=== PATIENT | male | born 1950 | race American Indian/Alaskan Native ===

== ENCOUNTER 2018-05-23 08:08 | Outpatient (CLI) | payer MEDICARE ==
[2018-05-23] MEDS ORDERED: SILVER NITRATE TP ONE (08:30)
[2018-05-23] MEDS ORDERED: XYLOCAINE TOPICAL 4% TP ONE ×2 (08:30→09:13)
== END 2018-05-23 08:09 | disposition home or self-care (01) ==
LOC: EDBD → WOUND 08:08
PROVIDERS: ATTEND Surgery
DX: L89.612 Pressure ulcer of right heel, stage 2 (principal); L89.154 Pressure ulcer of sacral region, stage 4; L89.222 Pressure ulcer of left hip, stage 2; L89.622 Pressure ulcer of left heel, stage 2; L89.512 Pressure ulcer of right ankle, stage 2; L89.892 Pressure ulcer of other site, stage 2; L97.212 Non-pressure chronic ulcer of right calf with fat layer exposed; F01.50 Vascular dementia, unspecified severity, without behavioral disturbance, psychotic disturbance, mood disturbance, and anxiety; I10 Essential (primary) hypertension; E03.9 Hypothyroidism, unspecified

== ENCOUNTER 2018-05-29 10:34 | Inpatient (IN) | payer MEDICARE ==
[2018-05-29 11:25] LABS: Basophils # (Auto) 0.1 K/mm3 (0.0-0.1); Basophils % (Auto) 0.7 % (0.0-1.8); Eosinophils # (Auto) 0.5 K/mm3 (0.0-0.4); Eosinophils % (Auto) 4.7 % (0.0-4.3); Hematocrit 24.9 % (35.5-45.6); Hemoglobin 7.9 gm/dl (11.8-15.2); Lymphocytes # (Auto) 1.1 K/mm3 (1.2-5.4); Lymphocytes % (Auto) 9.6 % (13.4-35.0); Mean Corpuscular HGB Conc 32 % (32-34); Mean Corpuscular Volume 85 fl (84-94); Monocytes % (Auto) 8.2 % (0.0-7.3); Platelet Count 515 K/mm3 (140-440); Red Blood Count 2.93 M/mm3 (3.65-5.03); Red Cell Distribution Width 18.5 % (13.2-15.2)
--- NOTE | 2018-05-29 11:33 | Emergency Department Report ---
HPI - General Chief Complaint: Recheck/Abnormal Lab/Rx Time Seen by Provider: 05/29/18 11:13 - HPI HPI: Room 19 The patient is a 67-year-old male presenting with chief complaint of anemia. The patient was sent from [facility] for anemia. Patient reportedly had an H&H of 7.3/23.3 at the [facility] and was sent for blood transfusion and colonoscopy per [facility] order form dated 05/28/2017. Patient denies complaints. Patient denies nausea/vomiting or shortness of breath Location: [See above] Duration: [See above] Quality: [See above] Severity: [See above] Modifying factors: [see above] Context: [see above] Mode of transportation: [not driving] ED Past Medical Hx - Past Medical History Previous Medical History?: Yes Hx Hypertension: Yes Hx CVA: Yes Hx Heart Attack/AMI: Yes Hx Diabetes: Yes (States does not treat) Hx Arthritis: Yes Hx Seizures: Yes Hx Kidney Stones: Yes Hx COPD: Yes Hx Dementia: Yes Additional medical history: Benign prostatic hypertrophy - Family History Family history: no significant - Social History Smoking Status: Unknown if ever smoked Substance Use Type: None - Medications Home Medications: Home Medications Medication Instructions Recorded Confirmed Last Taken Type Carvedilol [Coreg] 6.25 mg PO BID 06/02/16 05/29/18 Unknown History amLODIPine [Norvasc] 10 mg PO DAILY 06/02/16 05/29/18 Unknown History Acetaminophen [Tylenol Extra 650 mg PO Q6H PRN #30 07/23/17 05/29/18 Unknown Rx Strength] Donepezil HCl 10 mg PO HS #30 07/23/17 05/29/18 Unknown Rx Mirtazapine 7.5 mg PO HS #30 07/23/17 05/29/18 Unknown Rx diphenhydrAMINE [Benadryl CAP] 25 mg PO Q6H PRN #30 07/23/17 05/29/18 Unknown Rx levETIRAcetam [Keppra] 500 mg PO BID #60 07/23/17 05/29/18 Unknown Rx Multivit-Min/Iron Fum/Folic AC 1 each PO DAILY 03/24/18 05/29/18 Unknown History [Uhsdw-Oexkhbf-Gobrdyrx Tablet] Oxycodone HCl/Acetaminophen 1 each PO Q6HR PRN #14 tablet 04/02/18 05/29/18 Unknown Rx [Percocet 7.5/325 mg] Ferrous Sulfate [Ferrous Sulfate 300 mg FEEDTUBE DAILY 30 Days ml 04/30/18 05/29/18 Unknown Rx Oral Liq 300 Mg/5 Ml] Apixaban [Eliquis] 2.5 mg PO Q12H 05/29/18 05/29/18 Unknown History Ascorbic Acid [Vitamin C Oral Liq] 500 mg PO Q12H 05/29/18 05/29/18 Unknown History Dutasteride [Avodart] 0.5 mg PO DAILY 05/29/18 05/29/18 Unknown History Furosemide [Lasix TAB] 40 mg PO QDAY 05/29/18 05/29/18 Unknown History Ipratropium/Albuterol Sulfate 1 ampul IH BID 05/29/18 05/29/18 Unknown History [DUONEB *Not for PRN Use*] Lactobacillus Acidophilus 1 each PO BID 05/29/18 05/29/18 Unknown History [Acidophilus Lactobacilli] Lisinopril [Zestril TAB] 40 mg PO QDAY 05/29/18 05/29/18 Unknown History Tamsulosin [Flomax] 0.4 mg PO QDAY 05/29/18 05/29/18 Unknown History Zinc Sulfate 220 mg PO DAILY 05/29/18 05/29/18 Unknown History ED Review of Systems ROS: Stated complaint: ABNORMAL LABS Other details as noted in HPI Constitutional: no symptoms reported Eyes: denies: eye pain ENT: denies: throat pain Respiratory: denies: shortness of breath Cardiovascular: denies: chest pain Endocrine: no symptoms reported Gastrointestinal: denies: abdominal pain, vomiting Genitourinary: denies: dysuria Musculoskeletal: denies: back pain Neurological: denies: headache Physical Exam - Physical Exam Vital Signs: Vital Signs 05/29/18 10:56 Temperature 98.9 F Pulse Rate 84 Respiratory 20 Rate Blood Pressure 131/103 Physical Exam: GENERAL: The patient is well-developed well-nourished male lying in the position on the stretcher not appearing to be in acute distress. [] HEENT: Normocephalic. Atraumatic. NECK: Supple. Trachea midline CHEST/LUNGS: Clear to auscultation. There is no respiratory distress noted. HEART/CARDIOVASCULAR: Regular. There is no tachycardia. There is no gallop rub or murmur. ABDOMEN: Abdomen is soft, nontender. Patient has normal bowel sounds. There is no abdominal distention. SKIN: There is no rash. There is no edema. There is no diaphoresis. NEURO: The patient is awake, alert, and oriented. The patient is cooperative. The patient has normal speech MUSCULOSKELETAL: There is no evidence of acute injury. RECTAL: Guaiac negative brown stool ED Course Vital Signs 05/29/18 10:56 Temperature 98.9 F Pulse Rate 84 Respiratory 20 Rate Blood Pressure 131/103 ED Medical Decision Making - Lab Data Result diagrams: 05/29/18 11:07 05/29/18 11:07 Laboratory Tests 05/29/18 05/29/18 05/29/18 11:07 11:07 11:07 WBC 11.6 H RBC 2.93 L Hgb 7.9 L Hct 24.9 L MCV 85 MCH 27 L MCHC 32 RDW 18.5 H Plt Count 515 H Lymph % (Auto) 9.6 L [place] % (Auto) 8.2 H Eos % (Auto) 4.7 H Baso % (Auto) 0.7 Lymph # 1.1 L [place] # 1.0 H Eos # 0.5 H Baso # 0.1 Seg Neutrophils % 76.8 H Seg Neutrophils # 8.9 H Sodium 152 H Potassium 4.7 Chloride 111.7 H Carbon Dioxide 27 Anion Gap 18 BUN 51 H Creatinine 1.0 Estimated GFR > 60 BUN/Creatinine Ratio 51 Glucose 132 H Calcium 9.5 Total Bilirubin 0.20 AST 48 H ALT 66 H Alkaline Phosphatase 319 H Total Protein 7.6 Albumin 2.6 L Albumin/Globulin Ratio 0.5 Blood Type O POSITIVE Antibody Screen Negative Crossmatch See Detail - Differential Diagnosis GI bleed, anemia Critical care attestation.: If time is entered above; I have spent that time in minutes in the direct care of this critically ill patient, excluding procedure time. ED Disposition Clinical Impression: Anemia Disposition: OP ADMIT IP TO THIS HOSP Is pt being admited?: Yes Does the pt Need Aspirin: No Condition: Fair Time of Disposition: 12:27 (hospitalist paged (Dr Leija))
[2018-05-29] MEDS ORDERED: NACL 0.9% 500 ML 500 ML IV ONE (11:48)
[2018-05-29 11:49] LABS: Alanine Aminotransferase 66 units/L (7-56); Albumin 2.6 g/dL (3.9-5); BUN/Creatinine Ratio 51; Blood Urea Nitrogen 51 mg/dL (9-20); Calcium 9.5 mg/dL (8.4-10.2); Hemolysis Index 9
--- NOTE | 2018-05-29 12:41 | History and Physical Report ---
History of Present Illness Chief complaint: Confusion History of present illness: 67 YO Male [facility]sp FAcility Resident as [facility] with HTN, CVA, Contracture, Decubitus Ulcers, [place], DM, OA, Seizure Disorder, COPD, Dementia, BPH presents to ED for evaluation. Pt is confused and unable to provide history. Pt history taken from ED Staff, EMS, and SNF Staff. As per staff, the patient was found to have anemia with HGB of 7.3. EMS notified, and patient transported to [facility] for further care and evaluation. Pt seen and evaluated in ED and found to have SIRS, Encephalopathy, and symptomatic anemia. Pt admitted to [facility] unit. No further history obtainable. Past History Past Medical History: acute ND, COPD, diabetes, hypertension, seizures, stroke, other (Sacral Ducubitus Ulcers, ) Past Surgical History: No surgical history, Other (PEG placement) Social history: single. denies: smoking, alcohol abuse, prescription drug abuse Family history: hypertension Medications and Allergies Allergies Allergy/AdvReac Type Severity Reaction Status Date / Time tramadol Allergy Unknown Verified 03/23/18 17:14 Home Medications Medication Instructions Recorded Confirmed Last Taken Type Carvedilol [Coreg] 6.25 mg PO BID 06/02/16 05/29/18 Unknown History amLODIPine [Norvasc] 10 mg PO DAILY 06/02/16 05/29/18 Unknown History Acetaminophen [Tylenol Extra 650 mg PO Q6H PRN #30 07/23/17 05/29/18 Unknown Rx Strength] Donepezil HCl 10 mg PO HS #30 07/23/17 05/29/18 Unknown Rx Mirtazapine 7.5 mg PO HS #30 07/23/17 05/29/18 Unknown Rx diphenhydrAMINE [Benadryl CAP] 25 mg PO Q6H PRN #30 07/23/17 05/29/18 Unknown Rx levETIRAcetam [Keppra] 500 mg PO BID #60 07/23/17 05/29/18 Unknown Rx Multivit-Min/Iron Fum/Folic AC 1 each PO DAILY 03/24/18 05/29/18 Unknown History [Iobar-Ogsuwka-Dnyicpfu Tablet] Oxycodone HCl/Acetaminophen 1 each PO Q6HR PRN #14 tablet 04/02/18 05/29/18 Unknown Rx [Percocet 7.5/325 mg] Ferrous Sulfate [Ferrous Sulfate 300 mg FEEDTUBE DAILY 30 Days ml 04/30/18 05/29/18 Unknown Rx Oral Liq 300 Mg/5 Ml] Apixaban [Eliquis] 2.5 mg PO Q12H 05/29/18 05/29/18 Unknown History Ascorbic Acid [Vitamin C Oral Liq] 500 mg PO Q12H 05/29/18 05/29/18 Unknown History Dutasteride [Avodart] 0.5 mg PO DAILY 05/29/18 05/29/18 Unknown History Furosemide [Lasix TAB] 40 mg PO QDAY 05/29/18 05/29/18 Unknown History Ipratropium/Albuterol Sulfate 1 ampul IH BID 05/29/18 05/29/18 Unknown History [DUONEB *Not for PRN Use*] Lactobacillus Acidophilus 1 each PO BID 05/29/18 05/29/18 Unknown History [Acidophilus Lactobacilli] Lisinopril [Zestril TAB] 40 mg PO QDAY 05/29/18 05/29/18 Unknown History Tamsulosin [Flomax] 0.4 mg PO QDAY 05/29/18 05/29/18 Unknown History Zinc Sulfate 220 mg PO DAILY 05/29/18 05/29/18 Unknown History Review of Systems ROS unobtainable: due to mental status Exam - Constitutional Vitals: Temp Pulse Resp BP Pulse Ox 98.9 F 84 20 131/103 05/29/18 10:56 05/29/18 10:56 05/29/18 10:56 05/29/18 10:56 General appearance: Present: mild distress, disheveled, malodorous - EENT Eyes: Present: miosis - Neck Neck: Present: supple, normal ROM - Respiratory Respiratory effort: normal Respiratory: bilateral: CTA - Cardiovascular Heart Sounds: Present: S1 & S2. Absent: rub, click - Extremities Extremities: abnormal (contracture, pressure sores bilaterally) Peripheral Pulses: within normal limits - Abdominal General gastrointestinal: Present: soft, non-tender, non-distended, normal bowel sounds Male genitourinary: Present: normal - Integumentary Integumentary: Present: clear, dry, decreased turgor - Musculoskeletal Musculoskeletal: generalized weakness - Psychiatric Psychiatric: no appropriate mood/affect, no intact judgment & insight, no memory intact - Neurologic Neurologic: focal deficits, no moves all extremities, no gait normal Results - Labs CBC & Chem 7: 05/29/18 11:07 05/29/18 11:07 Labs: Abnormal lab results 05/29/18 05/29/18 05/29/18 Range/Units 11:07 11:07 11:07 WBC 11.6 H (4.5-11.0) K/mm3 RBC 2.93 L (3.65-5.03) M/mm3 Hgb 7.9 L (11.8-15.2) gm/dl Hct 24.9 L (35.5-45.6) % MCH 27 L (28-32) pg RDW 18.5 H (13.2-15.2) % Plt Count 515 H (140-440) K/mm3 Lymph % (Auto) 9.6 L (13.4-35.0) % [place] % (Auto) 8.2 H (0.0-7.3) % Eos % (Auto) 4.7 H (0.0-4.3) % Lymph # 1.1 L (1.2-5.4) K/mm3 [place] # 1.0 H (0.0-0.8) K/mm3 Eos # 0.5 H (0.0-0.4) K/mm3 Seg Neutrophils % 76.8 H (40.0-70.0) % Seg Neutrophils # 8.9 H (1.8-7.7) K/mm3 Sodium 152 H (137-145) mmol/L Chloride 111.7 H (98-107) mmol/L BUN 51 H (9-20) mg/dL Glucose 132 H (75-100) mg/dL AST 48 H (5-40) units/L ALT 66 H (7-56) units/L Alkaline Phosphatase 319 H (35-129) units/L Albumin 2.6 L (3.9-5) g/dL Crossmatch See Detail Assessment and Plan - Patient Problems (1) SIRS (systemic inflammatory response syndrome) Current Visit: Yes Status: Acute Plan to address problem: Empiric antibiotic therapy x 1 dose, urinalysis, chest x ray, monitor uop q shift, supportive care. (2) Encephalopathy Current Visit: Yes Status: Acute Plan to address problem: Neuro checks, supportive care, thyroid panel, seizure precautions, aspiration precautions (3) Decubitus ulcer Current Visit: Yes Status: Acute Qualifiers: Pressure injury location: upper back Plan to address problem: wound care, supportive care. (4) Anemia Current Visit: Yes Status: Acute Plan to address problem: PRBC transfusion, supportive care. (5) DVT prophylaxis Current Visit: Yes Status: Acute Plan to address problem: SCD to BLE while in bed.
[2018-05-29 12:42] LABS: INR 1.57 (0.87-1.13)
[2018-05-29 12:43] LABS: Partial Thromboplastin Time 52.8 Sec. (24.2-36.6)
[2018-05-29] MEDS ORDERED: SODIUM CHLORIDE FLUSH SYRINGE 10 ML IV PRN (12:58)
[2018-05-29] MEDS ORDERED: ZOFRAN IV PRN (12:58)
[2018-05-29] MEDS ORDERED: PROVENTIL IH PRN (12:58)
[2018-05-29] MEDS ORDERED: TYLENOL PO PRN (12:58)
--- NOTE | 2018-05-29 14:26 | XRay Report ---
AP CHEST :05/29/18 10:34:00 CLINICAL: Dyspnea. COMPARISON:03/23/18 FINDINGS: The patient is contracted and obliqued and the chin obscures a portion of the right upper lung. The imaged portions of the lungs are normally expanded and clear. No pneumothorax. Normal heart and pulmonary vasculature. The bones and soft tissues are normal. No tubes or lines. IMPRESSION: No acute cardiopulmonary process.
[2018-05-29] MEDS: SODIUM CHLORIDE FLUSH SYRINGE 10 ML IV SCH (22:19)
[2018-05-29] MEDS: PROTONIX IV SCH (22:19)
[2018-05-30 06:38] LABS: BUN/Creatinine Ratio 45; Blood Urea Nitrogen 45 mg/dL (9-20); Calcium 8.8 mg/dL (8.4-10.2); Hemolysis Index 16
[2018-05-30 06:41] LABS: Hematocrit TNR % (35.5-45.6); Hemoglobin TNR gm/dl (11.8-15.2); Mean Corpuscular HGB Conc TNR % (32-34); Mean Corpuscular Volume TNR fl (84-94); Mean Platelet Volume TNR fl (6-12); Platelet Count TNR K/mm3 (140-440); Red Blood Count TNR M/mm3 (3.65-5.03); Red Cell Distribution Width TNR % (13.2-15.2)
[2018-05-30 06:42] LABS: Basophils % (Auto) TNR % (0.0-1.8); Eosinophils % (Auto) TNR % (0.0-4.3); Lymphocytes % (Auto) TNR % (13.4-35.0); Monocytes % (Auto) TNR % (0.0-7.3)
[2018-05-30 06:43] LABS: Basophils # (Auto) TNR K/mm3 (0.0-0.1); Eosinophils # (Auto) TNR K/mm3 (0.0-0.4); Lymphocytes # (Auto) TNR K/mm3 (1.2-5.4); Monocytes # (Auto) TNR K/mm3 (0.0-0.8)
[2018-05-30 07:29] LABS: Basophils # (Auto) 0.1 K/mm3 (0.0-0.1); Basophils % (Auto) 0.9 % (0.0-1.8); Eosinophils # (Auto) 0.4 K/mm3 (0.0-0.4); Eosinophils % (Auto) 3.4 % (0.0-4.3); Hematocrit 29.1 % (35.5-45.6); Hemoglobin 9.5 gm/dl (11.8-15.2); Lymphocytes % (Auto) 10.1 % (13.4-35.0); Mean Corpuscular HGB Conc 33 % (32-34); Mean Corpuscular Volume 84 fl (84-94); Monocytes # (Auto) 0.8 K/mm3 (0.0-0.8); Platelet Count 477 K/mm3 (140-440); Red Blood Count 3.48 M/mm3 (3.65-5.03); Red Cell Distribution Width 17.3 % (13.2-15.2)
--- NOTE | 2018-05-30 07:56 | Progress Note ---
Assessment and Plan Assessment and plan: 67 YO Male Group Home FAcility Res[facility] as [facility] with HTN, CVA, Contracture, Decubitus Ulcers, [place], DM, OA, Seizure Disorder, COPD, Dementia, BPH presents to ED for evaluation. Pt is confused and unable to provide history. Pt history taken from ED Staff, EMS, and SNF Staff. As per st aff, the patient was found to have anemia with HGB of 7.3. EMS notified, and patient transported to [facility] for further care and evaluation. Pt seen and evaluated in ED and found to have SIRS, Encephalopathy, and symptomatic anemia. Pt admitted to [facility] unit. No further history obtainable. CAME FOR ANEMIA. CHRONIC NO CLEAR EVIDENCE OF GI BLEED ?HEMOLYSIS- CHECK HEMOLYSIS LABS PLACE ON ISOLATION FOR PRIOR HX OF MDR (1) SIRS (systemic inflammatory response syndrome) Current Visit: Yes Status: Acute Plan to address problem: Empiric antibiotic therapy x 1 dose, urinalysis, chest x ray, monitor uop q shif t, supportive care. no clear source of infection review of prior records shows MDR organism place (2) Encephalopathy Current Visit: Yes Status: Acute Plan to address problem: Neuro checks, supportive care, thyroid panel, seizure precautions, aspiration precautions Although he is able to assist with diet. (3) Decubitus ulcer Current Visit: Yes Status: Acute Qualifiers: Pressure injury location: upper back Plan to address problem: wound care, supportive care. (4) Anemia Current Visit: Yes Status: Acute Plan to address problem: PRBC transfusion, supportive care. (5) DVT prophylaxis Current Visit: Yes Status: Acute Plan to address problem: SCD to BLE while in bed. History Interval history: Patient seen and examined, admitted with abnormal labs. No new compliants today. Hospitalist Physical - Physical exam Narrative exam: General appearance: Present: mild distress, disheveled, - EENT Eyes: Present: miosis - Neck Neck: Present: supple, normal ROM - Respiratory Respiratory effort: normal Respiratory: bilateral: CTA - Cardiovascular Heart Sounds: Present: S1 & S2. Absent: rub, click - Extremities Extremities: abnormal (contracture, pressure sores bilaterally) Peripheral Pulses: within normal limits - Abdominal General gastrointestinal: Present: soft, non-tender, non-distended, normal bowel sounds Male genitourinary: Present: normal - Integumentary Integumentary: Present: clear, dry, decreased turgor - Musculoskeletal Musculoskeletal: generalized weakness - Psychiatric Psychiatric: no appropriate mood/affect, no intact judgment & insight, no memory intact - Neurologic Neurologic: focal deficits, no moves all extremities, no gait normal - Constitutional Vitals: Temp Pulse Resp BP Pulse Ox 97.6 F 88 20 137/67 95 05/30/18 01:52 05/30/18 05:17 05/30/18 01:52 05/30/18 01:52 05/30/18 01:52 General appearance: Present: mild distress, disheveled, malodorous Results - Labs CBC & Chem 7: 05/30/18 07:10 05/30/18 05:45 Labs: Laboratory Last Values WBC 10.2 K/mm3 (4.5-11.0) 05/30/18 07:10 RBC 3.48 M/mm3 (3.65-5.03) L 05/30/18 07:10 Hgb 9.5 gm/dl (11.8-15.2) L 05/30/18 07:10 Hct 29.1 % (35.5-45.6) L 05/30/18 07:10 MCV 84 fl (84-94) 05/30/18 07:10 MCH 27 pg (28-32) L 05/30/18 07:10 MCHC 33 % (32-34) 05/30/18 07:10 RDW 17.3 % (13.2-15.2) H 05/30/18 07:10 Plt Count 477 K/mm3 (140-440) H 05/30/18 07:10 Lymph % (Auto) 10.1 % (13.4-35.0) L 05/30/18 07:10 [place] % (Auto) 8.0 % (0.0-7.3) H 05/30/18 07:10 Eos % (Auto) 3.4 % (0.0-4.3) 05/30/18 07:10 Baso % (Auto) 0.9 % (0.0-1.8) 05/30/18 07:10 Lymph # 1.0 K/mm3 (1.2-5.4) L 05/30/18 07:10 [place] # 0.8 K/mm3 (0.0-0.8) 05/30/18 07:10 Eos # 0.4 K/mm3 (0.0-0.4) 05/30/18 07:10 Baso # 0.1 K/mm3 (0.0-0.1) 05/30/18 07:10 Seg Neutrophils % 77.6 % (40.0-70.0) H 05/30/18 07:10 Seg Neutrophils # 7.9 K/mm3 (1.8-7.7) H 05/30/18 07:10 PT 19.2 Sec. (12.2-14.9) H 05/29/18 Unknown INR 1.57 (0.87-1.13) H 05/29/18 Unknown APTT 52.8 Sec. (24.2-36.6) H 05/29/18 Unknown Sodium 150 mmol/L (137-145) H 05/30/18 05:45 Potassium 4.9 mmol/L (3.6-5.0) 05/30/18 05:45 Chloride 112.4 mmol/L (98-107) H 05/30/18 05:45 Carbon Dioxide 23 mmol/L (22-30) 05/30/18 05:45 Anion Gap 20 mmol/L 05/30/18 05:45 BUN 45 mg/dL (9-20) H 05/30/18 05:45 Creatinine 1.0 mg/dL (0.8-1.5) 05/30/18 05:45 Estimated GFR > 60 ml/min 05/30/18 05:45 BUN/Creatinine Ratio 45 % 05/30/18 05:45 Glucose 87 mg/dL (75-100) 05/30/18 05:45 Calcium 8.8 mg/dL (8.4-10.2) 05/30/18 05:45 Total Bilirubin 0.20 mg/dL (0.1-1.2) 05/29/18 11:07 AST 48 units/L (5-40) H 05/29/18 11:07 ALT 66 units/L (7-56) H 05/29/18 11:07 Alkaline Phosphatase 319 units/L (35-129) H 05/29/18 11:07 Total Protein 7.6 g/dL (6.3-8.2) 05/29/18 11:07 Albumin 2.6 g/dL (3.9-5) L 05/29/18 11:07 Albumin/Globulin Ratio 0.5 % 05/29/18 11:07 Blood Type O POSITIVE 05/29/18 11:07 Antibody Screen Negative 05/29/18 11:07 Crossmatch See Detail 05/29/18 11:07
[2018-05-30 08:09] LABS: Bacteria,Urine 1+ /HPF (Negative); Bilirubin,Urine NEG (Negative); Blood,Urine NEG (Negative); Color,Urine Yellow (Yellow); Mucus,Urine FEW /HPF; Urobilinogen,Urine < 2.0 mg/dL (<2.0)
[2018-05-30 09:26] LABS: Alanine Aminotransferase 54 units/L (7-56); Albumin 2.4 g/dL (3.9-5)
[2018-05-30 09:27] LABS: Bilirubin,Direct < 0.2 mg/dL (0-0.2)
[2018-05-30] MEDS: SODIUM CHLORIDE FLUSH SYRINGE 10 ML IV SCH ×2 (10:47→21:23)
[2018-05-30] MEDS: PROTONIX IV SCH ×2 (10:47→21:23)
[2018-05-31 06:16] LABS: Hematocrit 28.8 % (35.5-45.6); Hemoglobin 9.4 gm/dl (11.8-15.2); Mean Corpuscular HGB Conc 33 % (32-34); Mean Corpuscular Volume 84 fl (84-94); Platelet Count 470 K/mm3 (140-440); Red Blood Count 3.41 M/mm3 (3.65-5.03); Red Cell Distribution Width 17.1 % (13.2-15.2)
[2018-05-31 06:37] LABS: Alanine Aminotransferase 44 units/L (7-56); Albumin 2.5 g/dL (3.9-5); BUN/Creatinine Ratio 39; Blood Urea Nitrogen 39 mg/dL (9-20); Calcium 8.7 mg/dL (8.4-10.2); Hemolysis Index 6
[2018-05-31] MEDS: PROTONIX PO SCH ×2 (09:51→21:44)
[2018-05-31] MEDS: SODIUM CHLORIDE FLUSH SYRINGE 10 ML IV SCH ×2 (09:52→21:44)
--- NOTE | 2018-05-31 10:44 | Discharge Summary ---
Providers - Providers Date of Admission: 05/29/18 12:58 Attending physician: TRACEY ROTH MD 05/29/18 14:36 Consult to Wound/ET Nurse [CONS] Routine Reason For Exam: wound eval Primary care physician: ELECTROTYPER APPRENTICE Hospitalization Condition: Fair Hospital course: 67 YO Male Fdc FAcility Resident as [facility] with HTN, CVA, Contracture, Decubitus Ulcers, [place], DM, OA, Seizure Disorder, COPD, Dementia, BPH presents to ED for evaluation. Pt is confused and unable to provide history. Pt history taken from ED Staff, EMS, and SNF Staff. As per staff, the patient was found to have anemia with HGB of 7.3. EMS notified, and patient transported to [facility] for further care and evaluation. Pt seen and evaluated in ED and found to have SIRS, Encephalopathy, and symptomatic anemia. Pt admitted to [facility] unit. No further history obtainable. CAME FOR ANEMIA. CHRONIC NO CLEAR EVIDENCE OF GI BLEED ?HEMOLYSIS- CHECK HEMOLYSIS LABS PLACE ON ISOLATION FOR PRIOR HX OF MDR ( Disposition: DC/TX-03 SNF W [facility] C[facility] Time spent for discharge: 35 mins Exam - Constitutional Vitals: Temp Pulse Resp BP Pulse Ox 98.6 F 82 18 109/59 96 05/31/18 07:49 05/31/18 08:06 05/31/18 07:49 05/31/18 08:06 05/31/18 08:45 Plan Activity: advance as tolerated, fall precautions Diet: regular Wound: per wound nurse instructions, other (follow up at wound care clinic) Special Instructions: other Follow up with: PRIMARY CARE, [Primary Care Provider] - 3-5 Days Prescriptions: Ferrous Sulfate [Ferrous Sulfate Oral Liq 300 Mg/5 Ml] 300 mg FEEDTUBE BID 30 Days ml
--- NOTE | 2018-05-31 12:21 | Query-Altered Level of Consc. ---
Jose Martin Harris____Garcia Date:___05/31/18 Clinical Research Assistant/CDS:__milvia Phone#: [phone] Exercise your independent professional judgment when responding to this query. Questions asked do not imply a particular answer is desired or expected. We greatly appreciate your clarification on this issue. Clinical Documentation States: 67 YO Male Assisted FAcility Resident as [facility] . Pt is confused and unable to provide history. (1) SIRS (systemic inflammatory response syndrome) (2) Encephalopathy Clinical Findings Show: 05/29/18 05/30/18 Sodium 152 150 Please provide an appropriate diagnosis clarifying the Etiology and Acuity of this clinical scenario: [x ] Metabolic Encephalopathy [ ] Toxic Encephalopathy [ ] Toxic - Metabolic Encephalopathy [ ] Septic Encephalopathy with Sepsis [ ] Septic Encephalopathy without Sepsis [ ] Acute Hepatic Encephalopathy [ ] Subacute Hepatic Encephalopathy [ ] Other: [ ] Unable To Determine [ ]Comment/Explanation: Present on Admission: [ x] Yes (Y) [ ] Clinically undeterminable (W) [ ] No (N) Please also document response in your Progress Notes and/or Discharge Summary and indicate if the condition was present on admission. MTDD
--- NOTE | 2018-05-31 12:27 | Query- Nutrition ---
Jose Martin Fernández Date:__05/31/18 Assembler Gold Frame/CDS:__milvia Phone#:__[phone] Exercise your independent professional judgment when responding to query. Questions asked do not imply a particular answer is desired or expected. We greatly appreciate your clarification on this issue. Clinical Documentation States: 67 YO Male [facility] FAcility Resident as [facility]. Pt is confused and unable to provide history. (1) SIRS (systemic inflammatory response syndrome) (2) Encephalopathy Clinical Findings Show: 05/29/18 05/30/18 05/31/18 Albumin 2.6 2.4 2.5 Please select the most appropriate option [ ] Mild Malnutrition [ ] Moderate Malnutrition [x ] Severe Malnutrition Serum Albumin 2.8 to 3.4 g/dl or Pre-albumin 5 to 17 mg/dl1,2 Inadequate nutritional intake1,2,3,4 NPO > 5 days Weight loss: 5% in 1 month or 7.5% in 3 months or 10% in 6 months1, 3,4 BMI 16 to 18.4 or Weight <90% of ideal body weight1,2,3,4 Serum Albumin < 2.8 g/ dl1,2 Lymphocytes < 1500/ L2 Inadequate nutritional intake3, high stress e.g. major trauma, sepsis,pancreatitis, shook etc. Decubitus ulcers1,2, , skin breakdown2, easy hair pluckability2 Weight <80% standard for height2 Triceps skin fold <3 mm2 Mid-arm muscle circumference <15 cm2 Creatinine-height index <60% standard2 [ ] Cachexia [ ] Emaciated w/Malnutrition [ ] Other: [ ] Unable to determine [ ] Comment/Explanation: Present on Admission: [x ] Yes (Y) [ ] Clinically undeterminable (W) [ ] No (N) Please also document response in your Progress Notes and/or Discharge Summary and indicate if the condition was present on admission. MTDD
--- NOTE | 2018-05-31 16:16 | Progress Note ---
Assessment and Plan Assessment and plan: 67 YO Male Intermediate FAcility Resident as [facility] with HTN, CVA, Contracture, Decubitus Ulcers, [place], DM, OA, Seizure Disorder, COPD, Dementia, BPH presents to ED for evaluation. Pt is confused and unable to provide history. Pt history taken from ED Staff, EMS, and SNF Staff. As per st aff, the patient was found to have anemia with HGB of 7.3. EMS notified, and patient transported to [facility] for further care and evaluation. Pt seen and evaluated in ED and found to have SIRS, Encephalopathy, and symptomatic anemia. Pt admitted to DIANA unit. No further history obtainable. CAME FOR ANEMIA. CHRONIC NO CLEAR EVIDENCE OF GI BLEED ?HEMOLYSIS- CHECK HEMOLYSIS LABS- haptoglobin pending PLACE ON ISOLATION FOR PRIOR HX OF MDR (1) SIRS (systemic inflammatory response syndrome) Current Visit: Yes Status: Acute Plan to address problem: Empiric antibiotic therapy x 1 dose, urinalysis, chest x ray, monitor uop q shift, supportive care. no clear source of infection review of prior records shows MDR organism place (2) Encephalopathy Current Visit: Yes Status: Acute Plan to address problem: Neuro checks, supportive care, thyroid panel, seizure precautions, aspiration precautions Although he is able to assist with diet. (3) Decubitus ulcer Current Visit: Yes Status: Acute Qualifiers: Pressure injury location: upper back Plan to address problem: wound care, supportive care. (4) Anemia Current Visit: Yes Status: Acute Plan to address problem: PRBC transfusion, supportive care. (5) DVT prophylaxis Current Visit: Yes Status: Acute Plan to address problem: SCD to BLE while in bed. History Interval history: Patient seen and examined, admitted with abnormal labs. No new complaints today. Awaiting transfer back to [facility] Hospitalist Physical - Physical exam Narrative exam: General appearance: Present: mild distress, disheveled, - EENT Eyes: Present: miosis - Neck Neck: Present: supple, normal ROM - Respiratory Respiratory effort: normal Respiratory: bilateral: CTA - Cardiovascular Heart Sounds: Present: S1 & S2. Absent: rub, click - Extremities Extremities: abnormal (contracture, pressure sores bilaterally) Peripheral Pulses: within normal limits - Abdominal General gastrointestinal: Present: soft, non-tender, non-distended, normal bowel sounds Male genitourinary: Present: normal - Integumentary Integumentary: Present: clear, dry, decreased turgor - Musculoskeletal Musculoskeletal: generalized weakness - Psychiatric Psychiatric: no appropriate mood/affect, no intact judgment & insight, no memory intact - Neurologic Neurologic: focal deficits, no moves all extremities, no gait normal - Constitutional Vitals: Temp Pulse Resp BP Pulse Ox 99.4 F 82 20 116/65 95 05/31/18 13:45 05/31/18 13:45 05/31/18 13:45 05/31/18 13:45 05/31/18 13:45 General appearance: Present: mild distress, disheveled, malodorous Results - Labs CBC & Chem 7: 05/31/18 05:47 05/31/18 05:47 Labs: Laboratory Last Values WBC 9.7 K/mm3 (4.5-11.0) 05/31/18 05:47 RBC 3.41 M/mm3 (3.65-5.03) L 05/31/18 05:47 Hgb 9.4 gm/dl (11.8-15.2) L 05/31/18 05:47 Hct 28.8 % (35.5-45.6) L 05/31/18 05:47 MCV 84 fl (84-94) 05/31/18 05:47 MCH 28 pg (28-32) 05/31/18 05:47 MCHC 33 % (32-34) 05/31/18 05:47 RDW 17.1 % (13.2-15.2) H 05/31/18 05:47 Plt Count 470 K/mm3 (140-440) H 05/31/18 05:47 Lymph % (Auto) 10.1 % (13.4-35.0) L 05/30/18 07:10 [place] % (Auto) 8.0 % (0.0-7.3) H 05/30/18 07:10 Eos % (Auto) 3.4 % (0.0-4.3) 05/30/18 07:10 Baso % (Auto) 0.9 % (0.0-1.8) 05/30/18 07:10 Lymph # 1.0 K/mm3 (1.2-5.4) L 05/30/18 07:10 [place] # 0.8 K/mm3 (0.0-0.8) 05/30/18 07:10 Eos # 0.4 K/mm3 (0.0-0.4) 05/30/18 07:10 Baso # 0.1 K/mm3 (0.0-0.1) 05/30/18 07:10 Seg Neutrophils % 77.6 % (40.0-70.0) H 05/30/18 07:10 Seg Neutrophils # 7.9 K/mm3 (1.8-7.7) H 05/30/18 07:10 PT 19.2 Sec. (12.2-14.9) H 05/29/18 Unknown INR 1.57 (0.87-1.13) H 05/29/18 Unknown APTT 52.8 Sec. (24.2-36.6) H 05/29/18 Unknown Sodium 150 mmol/L (137-145) H 05/31/18 05:47 Potassium 4.6 mmol/L (3.6-5.0) 05/31/18 05:47 Chloride 112.1 mmol/L (98-107) H 05/31/18 05:47 Carbon Dioxide 24 mmol/L (22-30) 05/31/18 05:47 Anion Gap 19 mmol/L 05/31/18 05:47 BUN 39 mg/dL (9-20) H 05/31/18 05:47 Creatinine 1.0 mg/dL (0.8-1.5) 05/31/18 05:47 Estimated GFR > 60 ml/min 05/31/18 05:47 BUN/Creatinine Ratio 39 % 05/31/18 05:47 Glucose 99 mg/dL (75-100) 05/31/18 05:47 Calcium 8.7 mg/dL (8.4-10.2) 05/31/18 05:47 Total Bilirubin 0.40 mg/dL (0.1-1.2) 05/31/18 05:47 Direct Bilirubin < 0.2 mg/dL (0-0.2) 05/30/18 05:45 AST 25 units/L (5-40) 05/31/18 05:47 ALT 44 units/L (7-56) 05/31/18 05:47 Alkaline Phosphatase 258 units/L (35-129) H 05/31/18 05:47 Total Protein 6.6 g/dL (6.3-8.2) 05/31/18 05:47 Albumin 2.5 g/dL (3.9-5) L 05/31/18 05:47 Albumin/Globulin Ratio 0.6 % 05/31/18 05:47 Urine Color Yellow (Yellow) 05/30/18 07:45 Urine Turbidity Clear (Clear) 05/30/18 07:45 Urine pH 7.0 (5.0-7.0) 05/30/18 07:45 Ur Specific [place] 1.014 (1.003-1.030) 05/30/18 07:45 Urine Protein 30 mg/dl mg/dL (Negative) 05/30/18 07:45 Urine Glucose (UA) Neg mg/dL (Negative) 05/30/18 07:45 Urine Ketones Neg mg/dL (Negative) 05/30/18 07:45 Urine Blood Neg (Negative) 05/30/18 07:45 Urine Nitrite Pos (Negative) 05/30/18 07:45 Urine Bilirubin Neg (Negative) 05/30/18 07:45 Urine Urobilinogen < 2.0 mg/dL (<2.0) 05/30/18 07:45 Ur Leukocyte Esterase Lg (Negative) 05/30/18 07:45 Urine WBC (Auto) 80.0 /HPF (0.0-6.0) H 05/30/18 07:45 Urine RBC (Auto) 2.0 /HPF (0.0-6.0) 05/30/18 07:45 Urine Bacteria (Auto) 1+ /HPF (Negative) 05/30/18 07:45 Urine Mucus Few /HPF 05/30/18 07:45 Blood Type O POSITIVE 05/29/18 11:07 Antibody Screen Negative 05/29/18 11:07 Crossmatch See Detail 05/29/18 11:07 Nutrition/Malnutrition Assess - Dietary Evaluation Nutrition/Malnutrition Findings: Nutrition Notes Start: 05/30/18 13:52 Freq: Status: Active Protocol: Document 05/30/18 13:52 CT (Rec: 05/30/18 15:11 CT [id number]) Co-Sign 05/30/18 13:52 RM Nutrition Notes Need for 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 Height 5 ft 6 in Weight 63.5 kg [place] Body Weight (lbs) 142.0 BMI 22.6 Weight Status Appropriate Subjective/Other Information RD screen for skin risk. Miky 12. Pt incoherent at time of visit. Spoke with tech who stated pt eats only a few bites of food but drinks all of his beverages. Burn Absent Trauma Absent #1 Nutrition Diagnosis Inadequate oral intake Etiology dementia As Evidenced by Signs and Symptoms Tech states pt only eating "a few bites" of food. Is patient on ventilator? No Is Patient Ambulatory and/or Out of Bed No REE-([place] [facility]-confined to bed) 3933.792 Calculation [facility] Additional Notes PRO: 1.2 - 1.5 kcal/kg (77 - 95g PRO) Fluid: 1ml/kcal Nutrition Intervention Change Diet Order: Continue current Add Supplement/Snack (indicate name/kcal Glucerna daily /protein ) Mario daily Provides kCal: 315 Provides Protein (gm) 13 Goal #1 Increase PO and ONS intake to meet at least 75% of kcal and PRO needs. Anticipated Discharge Needs: Cardiac Follow-Up By: 06/03/18 Additional Comments F/U: intakes and tolerance
[2018-06-01] MEDS: SODIUM CHLORIDE FLUSH SYRINGE 10 ML IV SCH ×2 (11:06→22:00)
[2018-06-01] MEDS: PROTONIX PO SCH ×2 (11:06→21:59)
--- NOTE | 2018-06-01 12:05 | Progress Note ---
Assessment and Plan Assessment and plan: 67 YO Male Retirement FAcility Resident as [facility] with HTN, CVA, Contracture, Decubitus Ulcers, [place], DM, OA, Seizure Disorder, COPD, Dementia, BPH presents to ED for evaluation. Pt is confused and unable to provide history. Pt history taken from ED Staff, EMS, and SNF Staff. As per st aff, the patient was found to have anemia with HGB of 7.3. EMS notified, and patient transported to [facility] for further care and evaluation. Pt seen and evaluated in ED and found to have SIRS, Encephalopathy, and symptomatic anemia. Pt admitted to DIANA unit. No further history obtainable. CAME FOR ANEMIA. CHRONIC NO CLEAR EVIDENCE OF GI BLEED ?HEMOLYSIS- CHECK HEMOLYSIS LABS- haptoglobin pending PLACE ON ISOLATION FOR PRIOR HX OF MDR (1) SIRS (systemic inflammatory response syndrome) Current Visit: Yes Status: Acute Plan to address problem: Empiric antibiotic therapy x 1 dose, urinalysis, chest x ray, monitor uop q shift, supportive care. no clear source of infection review of prior records shows MDR organism place (2) Encephalopathy Current Visit: Yes Status: Acute Plan to address problem: Neuro checks, supportive care, thyroid panel, seizure precautions, aspiration precautions Although he is able to assist with diet. (3) Decubitus ulcer Current Visit: Yes Status: Acute Qualifiers: Pressure injury location: upper back Plan to address problem: wound care, supportive care. (4) Anemia Current Visit: Yes Status: Acute Plan to address problem: PRBC transfusion, supportive care. Resume oral iron (5) +MRSA SCREEN ISOLATION PRECAUTIONS (6)DVT prophylaxis Current Visit: Yes Status: Acute Plan to address problem: SCD to BLE while in bed. Awaiting Insurance autho for return to SNF Intermittent lab check while here History Interval history: Patient seen and examined, admitted with abnormal labs. No new complaints today. Awaiting transfer back to [facility] Hospitalist Physical - Physical exam Narrative exam: General appearance: Present: mild distress, disheveled, - EENT Eyes: Present: miosis - Neck Neck: Present: supple, normal ROM - Respiratory Respiratory effort: normal Respiratory: bilateral: CTA - Cardiovascular Heart Sounds: Present: S1 & S2. Absent: rub, click - Extremities Extremities: abnormal (contracture, pressure sores bilaterally) Peripheral Pulses: within normal limits - Abdominal General gastrointestinal: Present: soft, non-tender, non-distended, normal bowel sounds Male genitourinary: Present: normal - Integumentary Integumentary: Present: clear, dry, decreased turgor - Musculoskeletal Musculoskeletal: generalized weakness - Psychiatric Psychiatric: no appropriate mood/affect, no intact judgment & insight, no memory intact - Neurologic Neurologic: focal deficits, no moves all extremities, no gait normal - Constitutional Vitals: Temp Pulse Resp BP Pulse Ox 98.9 F 86 18 109/60 96 06/01/18 08:06 06/01/18 08:06 06/01/18 08:06 06/01/18 08:06 06/01/18 08:06 General appearance: Present: mild distress, disheveled, malodorous Results - Labs CBC & Chem 7: 05/31/18 05:47 05/31/18 05:47 Labs: Laboratory Last Values WBC 9.7 K/mm3 (4.5-11.0) 05/31/18 05:47 RBC 3.41 M/mm3 (3.65-5.03) L 05/31/18 05:47 Hgb 9.4 gm/dl (11.8-15.2) L 05/31/18 05:47 Hct 28.8 % (35.5-45.6) L 05/31/18 05:47 MCV 84 fl (84-94) 05/31/18 05:47 MCH 28 pg (28-32) 05/31/18 05:47 MCHC 33 % (32-34) 05/31/18 05:47 RDW 17.1 % (13.2-15.2) H 05/31/18 05:47 Plt Count 470 K/mm3 (140-440) H 05/31/18 05:47 Lymph % (Auto) 10.1 % (13.4-35.0) L 05/30/18 07:10 [place] % (Auto) 8.0 % (0.0-7.3) H 05/30/18 07:10 Eos % (Auto) 3.4 % (0.0-4.3) 05/30/18 07:10 Baso % (Auto) 0.9 % (0.0-1.8) 05/30/18 07:10 Lymph # 1.0 K/mm3 (1.2-5.4) L 05/30/18 07:10 [place] # 0.8 K/mm3 (0.0-0.8) 05/30/18 07:10 Eos # 0.4 K/mm3 (0.0-0.4) 05/30/18 07:10 Baso # 0.1 K/mm3 (0.0-0.1) 05/30/18 07:10 Seg Neutrophils % 77.6 % (40.0-70.0) H 05/30/18 07:10 Seg Neutrophils # 7.9 K/mm3 (1.8-7.7) H 05/30/18 07:10 PT 19.2 Sec. (12.2-14.9) H 05/29/18 Unknown INR 1.57 (0.87-1.13) H 05/29/18 Unknown APTT 52.8 Sec. (24.2-36.6) H 05/29/18 Unknown Sodium 150 mmol/L (137-145) H 05/31/18 05:47 Potassium 4.6 mmol/L (3.6-5.0) 05/31/18 05:47 Chloride 112.1 mmol/L (98-107) H 05/31/18 05:47 Carbon Dioxide 24 mmol/L (22-30) 05/31/18 05:47 Anion Gap 19 mmol/L 05/31/18 05:47 BUN 39 mg/dL (9-20) H 05/31/18 05:47 Creatinine 1.0 mg/dL (0.8-1.5) 05/31/18 05:47 Estimated GFR > 60 ml/min 05/31/18 05:47 BUN/Creatinine Ratio 39 % 05/31/18 05:47 Glucose 99 mg/dL (75-100) 05/31/18 05:47 Calcium 8.7 mg/dL (8.4-10.2) 05/31/18 05:47 Total Bilirubin 0.40 mg/dL (0.1-1.2) 05/31/18 05:47 Direct Bilirubin < 0.2 mg/dL (0-0.2) 05/30/18 05:45 AST 25 units/L (5-40) 05/31/18 05:47 ALT 44 units/L (7-56) 05/31/18 05:47 Alkaline Phosphatase 258 units/L (35-129) H 05/31/18 05:47 Total Protein 6.6 g/dL (6.3-8.2) 05/31/18 05:47 Albumin 2.5 g/dL (3.9-5) L 05/31/18 05:47 Albumin/Globulin Ratio 0.6 % 05/31/18 05:47 Urine Color Yellow (Yellow) 05/30/18 07:45 Urine Turbidity Clear (Clear) 05/30/18 07:45 Urine pH 7.0 (5.0-7.0) 05/30/18 07:45 Ur Specific [place] 1.014 (1.003-1.030) 05/30/18 07:45 Urine Protein 30 mg/dl mg/dL (Negative) 05/30/18 07:45 Urine Glucose (UA) Neg mg/dL (Negative) 05/30/18 07:45 Urine Ketones Neg mg/dL (Negative) 05/30/18 07:45 Urine Blood Neg (Negative) 05/30/18 07:45 Urine Nitrite Pos (Negative) 05/30/18 07:45 Urine Bilirubin Neg (Negative) 05/30/18 07:45 Urine Urobilinogen < 2.0 mg/dL (<2.0) 05/30/18 07:45 Ur Leukocyte Esterase Lg (Negative) 05/30/18 07:45 Urine WBC (Auto) 80.0 /HPF (0.0-6.0) H 05/30/18 07:45 Urine RBC (Auto) 2.0 /HPF (0.0-6.0) 05/30/18 07:45 Urine Bacteria (Auto) 1+ /HPF (Negative) 05/30/18 07:45 Urine Mucus Few /HPF 05/30/18 07:45 Blood Type O POSITIVE 05/29/18 11:07 Antibody Screen Negative 05/29/18 11:07 Crossmatch See Detail 05/29/18 11:07 Nutrition/Malnutrition Assess - Dietary Evaluation Nutrition/Malnutrition Findings: Nutrition Notes Start: 05/30/18 13:52 Freq: Status: Active Protocol: Document 05/30/18 13:52 CT (Rec: 05/30/18 15:11 CT [id number]) Co-Sign 05/30/18 13:52 RM Nutrition Notes Need for Assessment generated from: water use inspector Initial or Follow up Assessment Current Diagnosis COPD Diabetes Hypertension Stroke Other Pertinent Diagnosis SIRS, encephalopathy, dementia , pressure ulcers, seizure disorder, anemia Current Diet Regular Labs/Tests reviewed Pertinent Medications reviewed. Height 5 ft 6 in Weight 63.5 kg [place] Body Weight (lbs) 142.0 BMI 22.6 Weight Status Appropriate Subjective/Other Information RD screen for skin risk. Miky 12. Pt incoherent at time of visit. Spoke with tech who stated pt eats only a few bites of food but drinks all of his beverages. Burn Absent Trauma Absent #1 Nutrition Diagnosis Inadequate oral intake Etiology dementia As Evidenced by Signs and Symptoms Tech states pt only eating "a few bites" of food. Is patient on ventilator? No Is Patient Ambulatory and/or Out of Bed No REE[place]confined [place] 3363.072 Calculation Used for Recommendations [facility] Additional Notes PRO: 1.2 - 1.5 kcal/kg (77 - 95g PRO) Fluid: 1ml/kcal Nutrition Intervention Change Diet Order: Continue current Add Supplement/Snack (indicate name/kcal Glucerna daily /protein ) Mario daily Provides kCal: 315 Provides Protein (gm) 13 Goal #1 Increase PO and ONS intake to meet at least 75% of kcal and PRO needs. Anticipated Discharge Needs: Cardiac Follow-Up By: 06/03/18 Additional Comments F/U: intakes and tolerance
[2018-06-01] MEDS ORDERED: BENADRYL PO PRN (12:07)
[2018-06-01] MEDS ORDERED: NON-FORMULARY (Oxycodone Hcl/Acetaminophen [Percocet 7.5/325 Mg] 1 EACH) PO PRN (12:07)
[2018-06-01] MEDS ORDERED: PERCOCET 5/325 PO PRN (13:13)
[2018-06-01] MEDS: ELIQUIS PO SCH (13:41)
[2018-06-01] MEDS: DUONEB *Not for PRN Use IH SCH (20:21)
[2018-06-01] MEDS: LACTINEX PO SCH (21:59)
[2018-06-01] MEDS: KEPPRA PO SCH (21:59)
[2018-06-01] MEDS: VITAMIN C PO SCH (21:59)
[2018-06-01] MEDS: ARICEPT PO SCH (21:59)
[2018-06-01] MEDS ORDERED: LACTOBACILLUS ACIDOPHILUS PO SCH (22:00)
[2018-06-01] MEDS: COREG PO SCH (22:00)
[2018-06-01] MEDS: REMERON PO SCH (22:00)
[2018-06-01] MEDS ORDERED: NON-FORMULARY (Mirtazapine [Mirtazapine] 7.5 MG) PO SCH (22:00)
[2018-06-02 05:48] LABS: Hematocrit 27.2 % (35.5-45.6); Hemoglobin 8.8 gm/dl (11.8-15.2)
[2018-06-02] MEDS: DUONEB *Not for PRN Use IH SCH ×2 (07:39→20:24)
[2018-06-02] MEDS ORDERED: NON-FORMULARY (Multivit-Min/Iron Fum/Folic Ac [Multi-Vitamin-Minerals Tablet] 1 EACH) PO SCH (10:00)
[2018-06-02] MEDS ORDERED: NON-FORMULARY (Zinc Sulfate [Zinc Sulfate] 220 MG) PO SCH (10:00)
[2018-06-02] MEDS ORDERED: NON-FORMULARY (Dutasteride [Avodart] 0.5 MG) PO SCH (10:00)
[2018-06-02] MEDS: COREG PO SCH ×2 (10:03→22:21)
[2018-06-02] MEDS: THERAGRAN Tab PO SCH (10:03)
[2018-06-02] MEDS: FLOMAX PO SCH (10:03)
[2018-06-02] MEDS: LACTINEX PO SCH ×2 (10:03→22:21)
[2018-06-02] MEDS: PROTONIX PO SCH ×2 (10:04→22:21)
[2018-06-02] MEDS: KEPPRA PO SCH ×2 (10:04→22:21)
[2018-06-02] MEDS: ZINC SULFATE PO SCH (10:04)
[2018-06-02] MEDS: LASIX PO SCH (10:04)
[2018-06-02] MEDS: NORVASC PO SCH (10:04)
[2018-06-02] MEDS: SODIUM CHLORIDE FLUSH SYRINGE 10 ML IV SCH ×2 (10:05→22:22)
[2018-06-02] MEDS: VITAMIN C PO SCH ×2 (10:06→22:21)
[2018-06-02] MEDS: ZESTRIL PO SCH (10:06)
--- NOTE | 2018-06-02 10:08 | Progress Note ---
Assessment and Plan Assessment and plan: 67 YO Male Chcf FAcility Resident as [facility] with HTN, CVA, Contracture, Decubitus Ulcers, [place], DM, OA, Seizure Disorder, COPD, Dementia, BPH presents to ED for evaluation. Pt is confused and unable to provide history. Pt history taken from ED Staff, EMS, and SNF Staff. As per st aff, the patient was found to have anemia with HGB of 7.3. EMS notified, and patient transported to [facility] for further care and evaluation. Pt seen and evaluated in ED and found to have SIRS, Encephalopathy, and symptomatic anemia. Pt admitted to DIANA unit. No further history obtainable. CAME FOR ANEMIA. CHRONIC NO CLEAR EVIDENCE OF GI BLEED ?HEMOLYSIS- CHECK HEMOLYSIS LABS- haptoglobin pending PLACE ON ISOLATION FOR PRIOR HX OF MDR (1) SIRS (systemic inflammatory response syndrome) Current Visit: Yes Status: Acute Plan to address problem: Empiric antibiotic therapy x 1 dose, urinalysis, chest x ray, monitor uop q shift, supportive care. START ZOSYN. Likely underlying UTI review of prior records shows MDR organism place (2) Encephalopathy Current Visit: Yes Status: Acute Plan to address problem: Neuro checks, supportive care, thyroid panel, seizure precautions, aspiration precautions Although he is able to assist with diet. (3) Decubitus ulcer Current Visit: Yes Status: Acute Qualifiers: Pressure injury location: upper back Plan to address problem: wound care, supportive care. (4) Anemia Current Visit: Yes Status: Acute Plan to address problem: PRBC transfusion, supportive care. Resume oral iron (5) +MRSA SCREEN ISOLATION PRECAUTIONS (6) Hypernatremia Start on D5W. 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 Awaiting Insurance autho for return to SNF Intermittent lab check while here History Interval history: Patient seen and examined, admitted with abnormal labs. No new complaints today. Awaiting transfer back to [facility] Hospitalist Physical - Physical exam Narrative exam: General appearance: Present: mild distress, disheveled, - EENT Eyes: Present: miosis - Neck Neck: Present: supple, normal ROM - Respiratory Respiratory effort: normal Respiratory: bilateral: CTA - Cardiovascular Heart Sounds: Present: S1 & S2. Absent: rub, click - Extremities Extremities: abnormal (contracture, pressure sores bilaterally) Peripheral Pulses: within normal limits - Abdominal General gastrointestinal: Present: soft, non-tender, non-distended, normal bowel sounds Male genitourinary: Present: normal - Integumentary Integumentary: Present: clear, dry, decreased turgor - Musculoskeletal Musculoskeletal: generalized weakness - Psychiatric Psychiatric: no appropriate mood/affect, no intact judgment & insight, no memory intact - Neurologic Neurologic: focal deficits, no moves all extremities, no gait normal - Constitutional Vitals: Temp Pulse Resp BP Pulse Ox 98.0 F 80 18 107/53 93 06/02/18 08:01 06/02/18 08:01 06/02/18 08:01 06/02/18 08:01 06/02/18 08:01 General appearance: Present: mild distress, disheveled, malodorous Results - Labs CBC & Chem 7: 06/02/18 04:48 05/31/18 05:47 Labs: Laboratory Last Values WBC 9.7 K/mm3 (4.5-11.0) 05/31/18 05:47 RBC 3.41 M/mm3 (3.65-5.03) L 05/31/18 05:47 Hgb 8.8 gm/dl (11.8-15.2) L 06/02/18 04:48 Hct 27.2 % (35.5-45.6) L 06/02/18 04:48 MCV 84 fl (84-94) 05/31/18 05:47 MCH 28 pg (28-32) 05/31/18 05:47 MCHC 33 % (32-34) 05/31/18 05:47 RDW 17.1 % (13.2-15.2) H 05/31/18 05:47 Plt Count 470 K/mm3 (140-440) H 05/31/18 05:47 Lymph % (Auto) 10.1 % (13.4-35.0) L 05/30/18 07:10 [place] % (Auto) 8.0 % (0.0-7.3) H 05/30/18 07:10 Eos % (Auto) 3.4 % (0.0-4.3) 05/30/18 07:10 Baso % (Auto) 0.9 % (0.0-1.8) 05/30/18 07:10 Lymph # 1.0 K/mm3 (1.2-5.4) L 05/30/18 07:10 [place] # 0.8 K/mm3 (0.0-0.8) 05/30/18 07:10 Eos # 0.4 K/mm3 (0.0-0.4) 05/30/18 07:10 Baso # 0.1 K/mm3 (0.0-0.1) 05/30/18 07:10 Seg Neutrophils % 77.6 % (40.0-70.0) H 05/30/18 07:10 Seg Neutrophils # 7.9 K/mm3 (1.8-7.7) H 05/30/18 07:10 PT 19.2 Sec. (12.2-14.9) H 05/29/18 Unknown INR 1.57 (0.87-1.13) H 05/29/18 Unknown APTT 52.8 Sec. (24.2-36.6) H 05/29/18 Unknown Sodium 150 mmol/L (137-145) H 05/31/18 05:47 Potassium 4.6 mmol/L (3.6-5.0) 05/31/18 05:47 Chloride 112.1 mmol/L (98-107) H 05/31/18 05:47 Carbon Dioxide 24 mmol/L (22-30) 05/31/18 05:47 Anion Gap 19 mmol/L 05/31/18 05:47 BUN 39 mg/dL (9-20) H 05/31/18 05:47 Creatinine 1.0 mg/dL (0.8-1.5) 05/31/18 05:47 Estimated GFR > 60 ml/min 05/31/18 05:47 BUN/Creatinine Ratio 39 % 05/31/18 05:47 Glucose 99 mg/dL (75-100) 05/31/18 05:47 Calcium 8.7 mg/dL (8.4-10.2) 05/31/18 05:47 Total Bilirubin 0.40 mg/dL (0.1-1.2) 05/31/18 05:47 Direct Bilirubin < 0.2 mg/dL (0-0.2) 05/30/18 05:45 AST 25 units/L (5-40) 05/31/18 05:47 ALT 44 units/L (7-56) 05/31/18 05:47 Alkaline Phosphatase 258 units/L (35-129) H 05/31/18 05:47 Total Protein 6.6 g/dL (6.3-8.2) 05/31/18 05:47 Albumin 2.5 g/dL (3.9-5) L 05/31/18 05:47 Albumin/Globulin Ratio 0.6 % 05/31/18 05:47 Urine Color Yellow (Yellow) 05/30/18 07:45 Urine Turbidity Clear (Clear) 05/30/18 07:45 Urine pH 7.0 (5.0-7.0) 05/30/18 07:45 Ur Specific [place] 1.014 (1.003-1.030) 05/30/18 07:45 Urine Protein 30 mg/dl mg/dL (Negative) 05/30/18 07:45 Urine Glucose (UA) Neg mg/dL (Negative) 05/30/18 07:45 Urine Ketones Neg mg/dL (Negative) 05/30/18 07:45 Urine Blood Neg (Negative) 05/30/18 07:45 Urine Nitrite Pos (Negative) 05/30/18 07:45 Urine Bilirubin Neg (Negative) 05/30/18 07:45 Urine Urobilinogen < 2.0 mg/dL (<2.0) 05/30/18 07:45 Ur Leukocyte Esterase Lg (Negative) 05/30/18 07:45 Urine WBC (Auto) 80.0 /HPF (0.0-6.0) H 05/30/18 07:45 Urine RBC (Auto) 2.0 /HPF (0.0-6.0) 05/30/18 07:45 Urine Bacteria (Auto) 1+ /HPF (Negative) 05/30/18 07:45 Urine Mucus Few /HPF 05/30/18 07:45 Blood Type O POSITIVE 05/29/18 11:07 Antibody Screen Negative 05/29/18 11:07 Crossmatch See Detail 05/29/18 11:07 Nutrition/Malnutrition Assess - Dietary Evaluation Nutrition/Malnutrition Findings: Nutrition Notes Start: 05/30/18 13:52 Freq: Status: Active Protocol: Document 05/30/18 13:52 CT (Rec: 05/30/18 15:11 CT [id number]) Co-Sign 05/30/18 13:52 RM Nutrition Notes Need for Assessment generated from: catalogue maker Initial or Follow up Assessment Current Diagnosis COPD Diabetes Hypertension Stroke Other Pertinent Diagnosis SIRS, encephalopathy, dementia , pressure ulcers, seizure disorder, anemia Current Diet Regular Labs/Tests reviewed Pertinent Medications reviewed. Height 5 ft 6 in Weight 63.5 kg [place] Body Weight (lbs) 142.0 BMI 22.6 Weight Status Appropriate Subjective/Other Information RD screen for skin risk. Miky 12. Pt incoherent at time of visit. Spoke with tech who stated pt eats only a few bites of food but drinks all of his beverages. Burn Absent Trauma Absent #1 Nutrition Diagnosis Inadequate oral intake Etiology dementia As Evidenced by Signs and Symptoms Tech states pt only eating "a few bites" of food. Is patient on ventilator? No Is Patient Ambulatory and/or Out of Bed No REE-([place]-[facility] Jeor-confined to bed) 1623.072 Calculation Used for [facility] Additional Notes PRO: 1.2 - 1.5 kcal/kg (77 - 95g PRO) Fluid: 1ml/kcal Nutrition Intervention Change Diet Order: Continue current Add Supplement/Snack (indicate name/kcal Glucerna daily /protein ) Mario daily Provides kCal: 315 Provides Protein (gm) 13 Goal #1 Increase PO and ONS intake to meet at least 75% of kcal and PRO needs. Anticipated Discharge Needs: Cardiac Follow-Up By: 06/03/18 Additional Comments F/U: intakes and tolerance
[2018-06-02] MEDS ORDERED: ROCEPHIN/NS 1 GM/50 ML 1 GM/50 ML BAG IV SCH (11:00)
[2018-06-02] MEDS ORDERED: D5W 1,000 ML IV SCH (11:00)
[2018-06-02] MEDS: ELIQUIS PO SCH (13:21)
[2018-06-02] MEDS: ZOSYN/NS 4.5GM/100ML 4.5 GM/100 ML VIAL IV SCH ×2 (14:40→22:18)
[2018-06-02] MEDS: ARICEPT PO SCH (22:21)
[2018-06-02] MEDS: REMERON PO SCH (22:21)
[2018-06-03] MEDS: ELIQUIS PO SCH ×3 (01:04→14:59)
[2018-06-03 03:34] LABS: Hematocrit 27.2 % (35.5-45.6); Hemoglobin 8.7 gm/dl (11.8-15.2); Mean Corpuscular HGB Conc 32 % (32-34); Mean Corpuscular Volume 84 fl (84-94); Platelet Count 421 K/mm3 (140-440); Red Blood Count 3.25 M/mm3 (3.65-5.03); Red Cell Distribution Width 16.8 % (13.2-15.2)
[2018-06-03 03:45] LABS: Alanine Aminotransferase 20 units/L (7-56); Albumin 2.2 g/dL (3.9-5); BUN/Creatinine Ratio 39; Blood Urea Nitrogen 27 mg/dL (9-20); Creatine Kinase MB 1.6 ng/mL (0.0-4.0); Hemolysis Index 2
[2018-06-03] MEDS: ZOSYN/NS 4.5GM/100ML 4.5 GM/100 ML VIAL IV SCH ×3 (05:40→22:30)
[2018-06-03 06:56] LABS: Chol/HDL Ratio 2.96 %
[2018-06-03] MEDS: DUONEB *Not for PRN Use IH SCH ×2 (08:47→22:58)
[2018-06-03] MEDS: LACTINEX PO SCH ×2 (09:59→22:38)
[2018-06-03] MEDS: VITAMIN C PO SCH ×2 (09:59→22:31)
[2018-06-03] MEDS: ZINC SULFATE PO SCH (09:59)
[2018-06-03] MEDS: ZESTRIL PO SCH (10:00)
[2018-06-03] MEDS: KEPPRA PO SCH ×2 (10:00→22:30)
[2018-06-03] MEDS: THERAGRAN Tab PO SCH (10:00)
[2018-06-03] MEDS: PROTONIX PO SCH (10:00)
[2018-06-03] MEDS: COREG PO SCH (10:00)
[2018-06-03] MEDS: LASIX PO SCH (10:00)
[2018-06-03] MEDS: FLOMAX PO SCH (10:00)
[2018-06-03] MEDS: NORVASC PO SCH (10:00)
[2018-06-03] MEDS: SODIUM CHLORIDE FLUSH SYRINGE 10 ML IV SCH ×2 (10:22→22:31)
--- NOTE | 2018-06-03 12:02 | Consultation ---
History of Present Illness Consult date: 06/03/18 Consult reason: elevated troponin History of present illness: The patient is a 67-year-old man who lives in a [facility], brought to the emergency room because of abnormal outpatient labs included a hematocrit of 23 and an elevated sodium of 152. There was no report of symptoms of either chest pain or shortness of breath or any hemodynamic imbalance. The patient on examination appears very frail, elderly, nonverbal, contracted and laying in a position. Cardiology consultation was requested for the finding of mild isolated troponin elevation measured on arrival in the emergency room. The indication for the troponin measurement is unclear to me, as no cardiac symptoms were reported. The ECG is normal sinus rhythm with an old left bundle branch block. On telemetry during this hospitalization, there was a short burst of 8-10 beat nonsustained ventricular tachycardia. Review of his prior cardiac workup includes cardiac catheterization done in 2014, that revealed no significant coronary artery disease, but a severe nonischemic cardiomyopathy with ejection fraction 20-25%. Over the years, serial echocardiograms have shown a resolution of the cardiomyopathy with most recent echocardiogram 2 months ago, ejection fraction was 50-55%. Past History Past Medical History: acute DE, COPD, diabetes, hypertension, seizures, stroke, other (Sacral Ducubitus Ulcers, ) Past Surgical History: No surgical history, Other (PEG placement) Social history: single. denies: smoking, alcohol abuse, prescription drug abuse Family history: hypertension Medications and Allergies Allergies Allergy/AdvReac Type Severity Reaction Status Date / Time tramadol Allergy Unknown Verified 03/23/18 17:14 Home Medications Medication Instructions Recorded Confirmed Last Taken Type Carvedilol [Coreg] 6.25 mg PO BID 06/02/16 05/29/18 Unknown History amLODIPine [Norvasc] 10 mg PO DAILY 06/02/16 05/29/18 Unknown History Acetaminophen [Tylenol Extra 650 mg PO Q6H PRN #30 07/23/17 05/29/18 Unknown Rx Strength] Donepezil HCl 10 mg PO HS #30 07/23/17 05/29/18 Unknown Rx Mirtazapine 7.5 mg PO HS #30 07/23/17 05/29/18 Unknown Rx diphenhydrAMINE [Benadryl CAP] 25 mg PO Q6H PRN #30 07/23/17 05/29/18 Unknown Rx levETIRAcetam [Keppra] 500 mg PO BID #60 07/23/17 05/29/18 Unknown Rx Multivit-Min/Iron Fum/Folic AC 1 each PO DAILY 03/24/18 05/29/18 Unknown History [Bglmf-Fqofqft-Jqbnuxtw Tablet] Oxycodone HCl/Acetaminophen 1 each PO Q6HR PRN #14 tablet 04/02/18 05/29/18 Unknown Rx [Percocet 7.5/325 mg] Apixaban [Eliquis] 2.5 mg PO Q12H 05/29/18 05/29/18 Unknown History Ascorbic Acid [Vitamin C Oral Liq] 500 mg PO Q12H 05/29/18 05/29/18 Unknown History Dutasteride [Avodart] 0.5 mg PO DAILY 05/29/18 05/29/18 Unknown History Furosemide [Lasix TAB] 40 mg PO QDAY 05/29/18 05/29/18 Unknown History Ipratropium/Albuterol Sulfate 1 ampul IH BID 05/29/18 05/29/18 Unknown History [DUONEB *Not for PRN Use*] Lactobacillus Acidophilus 1 each PO BID 05/29/18 05/29/18 Unknown History [Acidophilus Lactobacilli] Lisinopril [Zestril TAB] 40 mg PO QDAY 05/29/18 05/29/18 Unknown History Tamsulosin [Flomax] 0.4 mg PO QDAY 05/29/18 05/29/18 Unknown History Zinc Sulfate 220 mg PO DAILY 05/29/18 05/29/18 Unknown History Ferrous Sulfate [Ferrous Sulfate 300 mg FEEDTUBE BID 30 Days ml 05/31/18 Unknown Rx Oral Liq 300 Mg/5 Ml] Active Meds: Active Medications Acetaminophen (Tylenol) 650 mg PO Q4H PRN PRN Reason: Pain MILD(1-3)/Fever >100.5/PRICE Last Admin: 06/01/18 22:30 Dose: 650 mg Documented by: Albuterol (Proventil) 2.5 mg IH Q4HRT PRN PRN Reason: Shortness Of Breath Albuterol/Ipratropium (Duoneb *Not For Prn Use*) 1 ampul IH BIDRT NORA Last Admin: 06/03/18 08:47 Dose: 1 ampul Documented by: Amlodipine Besylate (Norvasc) 10 mg PO DAILY [facility] Last Admin: 06/03/18 10:00 Dose: Not Given Documented by: Apixaban (Eliquis) 2.5 mg PO Q12H [facility]; Protocol Last Admin: 06/03/18 01:04 Dose: 2.5 mg Documented by: Ascorbic Acid (Vitamin C) 500 mg PO Q12HR [facility] Last Admin: 06/03/18 09:59 Dose: 500 mg Documented by: Carvedilol (Coreg) 6.25 mg PO BID [facility] Last Admin: 06/03/18 10:00 Dose: Not Given Documented by: Diphenhydramine HCl (Benadryl) 25 mg PO Q6H PRN PRN Reason: Itching Donepezil HCl (Aricept) 10 mg PO HS [facility] Last Admin: 06/02/18 22:21 Dose: 10 mg Documented by: Furosemide (Lasix) 40 mg PO QDAY [facility] Last Admin: 06/03/18 10:00 Dose: 40 mg Documented by: Dextrose (D5w) 1,000 mls @ 75 mls/hr IV DIRECT [facility] Piperacillin Sod/Tazobactam Sod (Zosyn/Ns 4.5gm/100ml) 4.5 gm in 100 mls @ 200 mls/hr IV Q8HR [facility]; Protocol Last Infusion: 06/03/18 07:10 Dose: Infused Documented by: Lactobacillus Acidophilus (Lactinex) 1 each PO BID [facility] Last Admin: 06/03/18 09:59 Dose: 1 each Documented by: Levetiracetam (Keppra) 500 mg PO BID [facility] Last Admin: 06/03/18 10:00 Dose: 500 mg Documented by: Lisinopril (Zestril) 40 mg PO QDAY [facility] Last Admin: 06/03/18 10:00 Dose: Not Given Documented by: Mirtazapine (Remeron) 7.5 mg PO QHS [facility] Last Admin: 06/02/18 22:21 Dose: 7.5 mg Documented by: Miscellaneous Medication (Dutasteride [Avodart]) 0.5 mg PO DAILY [facility] Multivitamins (Theragran Tab) 1 each PO DAILY [facility] Last Admin: 06/03/18 10:00 Dose: 1 each Documented by: Ondansetron HCl (Zofran) 4 mg IV Q8H PRN PRN Reason: Nausea And Vomiting Oxycodone/Acetaminophen (Percocet 5/325) 1 tab PO Q4H PRN PRN Reason: Pain, Moderate (4-6) Pantoprazole Sodium (Protonix) 40 mg PO BID [facility] Last Admin: 06/03/18 10:00 Dose: 40 mg Documented by: Sodium Chloride (Sodium Chloride Flush Syringe 10 Ml) 10 ml IV BID [facility] Last Admin: 06/03/18 10:22 Dose: 10 ml Documented by: Sodium Chloride (Sodium Chloride Flush Syringe 10 Ml) 10 ml IV PRN PRN PRN Reason: LINE FLUSH Tamsulosin HCl (Flomax) 0.4 mg PO QDAY [facility] Last Admin: 06/03/18 10:00 Dose: 0.4 mg Documented by: Zinc Sulfate (Zinc Sulfate) 220 mg PO QDAY [facility] Last Admin: 06/03/18 09:59 Dose: 220 mg Documented by: Review of Systems ROS unobtainable: due to mental status Physical Examination Vital Signs Temp Pulse Resp BP 98.9 F 84 20 131/103 05/29/18 10:56 05/29/18 10:56 05/29/18 10:56 05/29/18 10:56 General appearance: no acute distress, other (frail, contracted, nonverbal and laying in a position) HEENT: Positive: PERRL Neck: Positive: neck supple Cardiac: Positive: Reg Rate and Rhythm Lungs: Positive: Decreased Breath Sounds Neuro: Positive: Weakness Abdomen: Positive: Soft Male genitourinary: Positive: deferred Skin: Positive: Clear Musculoskeletal: other (generalized muscle contracture) Extremities: Absent: edema Results 06/03/18 02:29 06/03/18 02:29 Cardiac Enzymes 06/03/18 06/03/18 Range/Units 02:29 02:29 AST 14 (5-40) units/L CK-MB (CK-2) 1.6 (0.0-4.0) ng/mL Lipids 06/03/18 Range/Units 05:26 Triglycerides 76 (2-149) mg/dL Cholesterol 83 (50-199) mg/dL HDL Cholesterol 28 L (40-59) mg/dL Cholesterol/HDL Ratio 2.96 % CBC 06/03/18 Range/Units 02:29 WBC 11.1 H (4.5-11.0) K/mm3 RBC 3.25 L (3.65-5.03) M/mm3 Hgb 8.7 L (11.8-15.2) gm/dl Hct 27.2 L (35.5-45.6) % Plt Count 421 (140-440) K/mm3 Comprehensive Metabolic Panel 06/03/18 Range/Units 02:29 Sodium 141 D (137-145) mmol/L Potassium 4.1 (3.6-5.0) mmol/L Chloride 105.8 (98-107) mmol/L Carbon Dioxide 22 (22-30) mmol/L BUN 27 H (9-20) mg/dL Creatinine 0.7 L (0.8-1.5) mg/dL Glucose 81 (75-100) mg/dL Calcium 9.0 (8.4-10.2) mg/dL AST 14 (5-40) units/L ALT 20 (7-56) units/L Alkaline Phosphatase 186 H (35-129) units/L Total Protein 6.3 (6.3-8.2) g/dL Albumin 2.2 L (3.9-5) g/dL EKG interpretations - Telemetry EKG Rhythm: Sinus Rhythm (with chronic left bundle-branch block) Assessment and Plan - Patient Problems (1) Elevated troponin Current Visit: No Status: Acute Plan to address problem: Nonspecific isolated troponin elevation in an asymptomatic patient. No further cardiac workup is indicated. Defer to the internal medicine service for further evaluation and management of the patient's presenting laboratory abnormalities, anemia and hypernatremia. Will follow intermittently. (2) Nonischemic cardiomyopathy Current Visit: Yes Status: Acute Plan to address problem: Patient has a history of a resolving nonischemic cardiomyopathy, we'll continue medical therapy. Left bundle branch block is chronic, likely associated with this nonischemic cardiomyopathy. We'll increase beta chandan therapy and recommend correction of electrolyte abnormalities to prevent further ventricular ectopy.
[2018-06-03 12:59] LABS: Creatine Kinase MB 1.5 ng/mL (0.0-4.0)
--- NOTE | 2018-06-03 17:10 | Progress Note ---
Assessment and Plan Assessment and plan: 67 YO Male [facility] Resident as [facility] with HTN, CVA, Contracture, Decubitus Ulcers, MS, DM, OA, Seizure Disorder, COPD, Dementia, BPH presents to ED for evaluation. Pt is confused and unable to provide history. Pt history taken from ED Staff, EMS, and SNF Staff. As per st aff, the patient was found to have anemia with HGB of 7.3. EMS notified, and patient transported to [facility] for further care and evaluation. Pt seen and evaluated in ED and found to have SIRS, Encephalopathy, and symptomatic anemia. Pt admitted to [facility] unit. No further history obtainable. Patient was admitted for anemia and given a pack of red blood cells with equilibration of hemoglobin is stable. He was also started on empiric antibiotic for urinary tract infection which by review is chronic and has been on multiple medications and has developed MDR. He did not demonstrate any infectious process from this UTI but did have a log of V. tach for which cardiology evaluated. The patient has chronic troponin anemia and no cardiac or Is recommended at this time. He will continue on antibiotics until discharge does not require to be discharged on antibiotics in my opinion but the primary could CAME FOR ANEMIA. CHRONIC NO CLEAR EVIDENCE OF GI BLEED ?HEMOLYSIS- CHECK HEMOLYSIS LABS- haptoglobin pending PLACE ON ISOLATION FOR PRIOR HX OF MDR (1) SIRS (systemic inflammatory response syndrome) Current Visit: Yes Status: Acute Plan to address problem: supportive care. continue ZOSYN. Likely underlying UTI review of prior records shows MDR organism place (2) Encephalopathy Current Visit: Yes Status: Acute Plan to address problem: Neuro checks, supportive care, thyroid panel, seizure precautions, aspiration precautions Although he is able to assist with diet. (3) Decubitus ulcer Current Visit: Yes Status: Acute Qualifiers: Pressure injury location: upper back Plan to address problem: wound care, supportive care. (4) Anemia Current Visit: Yes Status: Acute Plan to address problem: PRBC transfusion, supportive care. Resume oral iron (5) +MRSA SCREEN ISOLATION PRECAUTIONS (6) Hypernatremia Start on D5W. 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 Awaiting Insurance autho for return to SNF Intermittent lab check while here History Interval history: Patient seen and examined, admitted with abnormal labs. No new complaints today. Awaiting transfer back to [facility] Hospitalist Physical - Physical exam Narrative exam: General appearance: Present: mild distress, disheveled, - EENT Eyes: Present: miosis - Neck Neck: Present: supple, normal ROM - Respiratory Respiratory effort: normal Respiratory: bilateral: CTA - Cardiovascular Heart Sounds: Present: S1 & S2. Absent: rub, click - Extremities Extremities: abnormal (contracture, pressure sores bilaterally) Peripheral Pulses: within normal limits - Abdominal General gastrointestinal: Present: soft, non-tender, non-distended, normal bowel sounds Male genitourinary: Present: normal - Integumentary Integumentary: Present: clear, dry, decreased turgor - Musculoskeletal Musculoskeletal: generalized weakness - Psychiatric Psychiatric: no appropriate mood/affect, no intact judgment & insight, no memory intact - Neurologic Neurologic: focal deficits, no moves all extremities, no gait normal - Constitutional Vitals: Temp Pulse Resp BP Pulse Ox 99.0 F 91 H 20 103/66 97 06/03/18 14:34 06/03/18 14:34 06/03/18 14:34 06/03/18 14:34 06/03/18 14:34 General appearance: Present: no acute distress, other (frail, contracted, nonverbal and laying in a position) Results - Labs CBC & Chem 7: 06/03/18 02:29 06/03/18 02:29 Labs: Laboratory Last Values WBC 11.1 K/mm3 (4.5-11.0) H 06/03/18 02:29 RBC 3.25 M/mm3 (3.65-5.03) L 06/03/18 02:29 Hgb 8.7 gm/dl (11.8-15.2) L 06/03/18 02:29 Hct 27.2 % (35.5-45.6) L 06/03/18 02:29 MCV 84 fl (84-94) 06/03/18 02:29 MCH 27 pg (28-32) L 06/03/18 02:29 MCHC 32 % (32-34) 06/03/18 02:29 RDW 16.8 % (13.2-15.2) H 06/03/18 02:29 Plt Count 421 K/mm3 (140-440) 06/03/18 02:29 Lymph % (Auto) 10.1 % (13.4-35.0) L 05/30/18 07:10 Walsh % (Auto) 8.0 % (0.0-7.3) H 05/30/18 07:10 Eos % (Auto) 3.4 % (0.0-4.3) 05/30/18 07:10 Baso % (Auto) 0.9 % (0.0-1.8) 05/30/18 07:10 Lymph # 1.0 K/mm3 (1.2-5.4) L 05/30/18 07:10 Walsh # 0.8 K/mm3 (0.0-0.8) 05/30/18 07:10 Eos # 0.4 K/mm3 (0.0-0.4) 05/30/18 07:10 Baso # 0.1 K/mm3 (0.0-0.1) 05/30/18 07:10 Seg Neutrophils % 77.6 % (40.0-70.0) H 05/30/18 07:10 Seg Neutrophils # 7.9 K/mm3 (1.8-7.7) H 05/30/18 07:10 PT 19.2 Sec. (12.2-14.9) H 05/29/18 Unknown INR 1.57 (0.87-1.13) H 05/29/18 Unknown APTT 52.8 Sec. (24.2-36.6) H 05/29/18 Unknown Sodium 141 mmol/L (137-145) D 06/03/18 02:29 Potassium 4.1 mmol/L (3.6-5.0) 06/03/18 02:29 Chloride 105.8 mmol/L (98-107) 06/03/18 02:29 Carbon Dioxide 22 mmol/L (22-30) 06/03/18 02:29 Anion Gap 17 mmol/L 06/03/18 02:29 BUN 27 mg/dL (9-20) H 06/03/18 02:29 Creatinine 0.7 mg/dL (0.8-1.5) L 06/03/18 02:29 Estimated GFR > 60 ml/min 06/03/18 02:29 BUN/Creatinine Ratio 39 % 06/03/18 02:29 Glucose 81 mg/dL (75-100) 06/03/18 02:29 Calcium 9.0 mg/dL (8.4-10.2) 06/03/18 02:29 Magnesium 2.50 mg/dL (1.7-2.3) H 06/03/18 02:29 Total Bilirubin 0.40 mg/dL (0.1-1.2) 06/03/18 02:29 Direct Bilirubin < 0.2 mg/dL (0-0.2) 05/30/18 05:45 AST 14 units/L (5-40) 06/03/18 02:29 ALT 20 units/L (7-56) 06/03/18 02:29 Alkaline Phosphatase 186 units/L (35-129) H 06/03/18 02:29 Total Creatine Kinase 75 units/L (55-170) 06/03/18 12:15 CK-MB (CK-2) 1.5 ng/mL (0.0-4.0) 06/03/18 12:15 CK-MB (CK-2) Rel Index 2.0 (0-4) 06/03/18 12:15 Troponin T 0.102 ng/mL (0.00-0.029) H* 06/03/18 12:15 Total Protein 6.3 g/dL (6.3-8.2) 06/03/18 02:29 Albumin 2.2 g/dL (3.9-5) L 06/03/18 02:29 Albumin/Globulin Ratio 0.5 % 06/03/18 02:29 Triglycerides 76 mg/dL (2-149) 06/03/18 05:26 Cholesterol 83 mg/dL (50-199) 06/03/18 05:26 LDL Cholesterol Direct 44 mg/dL (50-130) L 06/03/18 05:26 HDL Cholesterol 28 mg/dL (40-59) L 06/03/18 05:26 Cholesterol/HDL Ratio 2.96 % 06/03/18 05:26 Urine Color Yellow (Yellow) 05/30/18 07:45 Urine Turbidity Clear (Clear) 05/30/18 07:45 Urine pH 7.0 (5.0-7.0) 05/30/18 07:45 Ur Specific [employer] 1.014 (1.003-1.030) 05/30/18 07:45 Urine Protein 30 mg/dl mg/dL (Negative) 05/30/18 07:45 Urine Glucose (UA) Neg mg/dL (Negative) 05/30/18 07:45 Urine Ketones Neg mg/dL (Negative) 05/30/18 07:45 Urine Blood Neg (Negative) 05/30/18 07:45 Urine Nitrite Pos (Negative) 05/30/18 07:45 Urine Bilirubin Neg (Negative) 05/30/18 07:45 Urine Urobilinogen < 2.0 mg/dL (<2.0) 05/30/18 07:45 Ur Leukocyte Esterase Lg (Negative) 05/30/18 07:45 Urine WBC (Auto) 80.0 /HPF (0.0-6.0) H 05/30/18 07:45 Urine RBC (Auto) 2.0 /HPF (0.0-6.0) 05/30/18 07:45 Urine Bacteria (Auto) 1+ /HPF (Negative) 05/30/18 07:45 Urine Mucus Few /HPF 05/30/18 07:45 Blood Type O POSITIVE 05/29/18 11:07 Antibody Screen Negative 05/29/18 11:07 Crossmatch See Detail 05/29/18 11:07 Nutrition/Malnutrition Assess - Dietary Evaluation Nutrition/Malnutrition Findings: Nutrition Notes Start: 05/30/18 13:52 Freq: Status: Active Protocol: Document 06/03/18 16:56 [facility] (Rec: 06/03/18 17:03 [facility] [id number]) Nutrition Notes Initial or Follow up Reassessment Current Diagnosis COPD Diabetes Hypertension Stroke Other Pertinent Diagnosis Decubitus ulcers, Dementia, SIRS Current Diet Regular + Glucerna and Mario daily Labs/Tests BUN 27 Mg 2.5 Pertinent Medications 500mg Vit C BID, D5 at 75ml/hr (provides 306 kcal), Lasix, Lactobacillus acidophilus, Remeron, MVI, 220mg zinc daily Height 5 ft 6 in Weight 63.5 kg [place] Body Weight (lbs) 142.0 BMI 22.6 Subjective/Other Information Pt has consumed 19% of meals since last assessment. He reports no chewing difficulty and does drink the ONS daily. Pt reminded of the importance of adequate energy and pro intake for wound healing. He agreed to increased number of ONS. Burn Absent Trauma Absent #1 Nutrition Diagnosis Inadequate oral intake Diagnosis Progress(for reassessment Continues documentation) Is patient on ventilator? No Is Patient Ambulatory and/or Out of Bed No REE-([facility]-confined to bed) 0203.072 Calculation Used for Recommendations [facility] Additional Notes Pro needs 1.25-1.5g/k-95g /day Fluid needs 1ml/kcal Nutrition Intervention Change Diet Order: Continue current diet order Add Supplement/Snack (indicate name/kcal Glucerna TID (strawberry) /protein ) Mario BID Provides kCal: 850 Provides Protein (gm) 35 Goal #1 PO intake of meals and ONS to meet at least 75% energy and pro needs Goal #2 Wt maintenance Follow-Up By: 06/05/18 Additional Comments F/U: intakes (meals/ONS), wt, wound healing - Attestation Statement I have reviewed and agreed w/ Malnutrition eval & tx plan: Yes
[2018-06-03] MEDS ORDERED: SODIUM BICARBONATE FEEDTUBE PRN (17:28)
[2018-06-03] MEDS ORDERED: PANCREAZE DR 10,500 UNIT FEEDTUBE PRN (17:28)
[2018-06-03] MEDS ORDERED: SIMPLE SYRUP FEEDTUBE PRN ×2 (17:28)
[2018-06-03 18:58] LABS: Creatine Kinase MB 1.3 ng/mL (0.0-4.0)
[2018-06-03] MEDS ORDERED: TYLENOL PO PRN (22:00)
[2018-06-03] MEDS ORDERED: BANOPHEN PO PRN (22:00)
[2018-06-03] MEDS: REMERON PO SCH (22:30)
[2018-06-03] MEDS: ARICEPT PO SCH (22:32)
[2018-06-04] MEDS: ELIQUIS PO SCH ×2 (01:27→14:50)
[2018-06-04] MEDS: COREG PO SCH ×3 (03:32→21:20)
[2018-06-04] MEDS: ZOSYN/NS 4.5GM/100ML 4.5 GM/100 ML VIAL IV SCH ×3 (05:48→21:22)
[2018-06-04 05:50] LABS: Hematocrit 28.1 % (35.5-45.6); Hemoglobin 9.2 gm/dl (11.8-15.2); Mean Corpuscular HGB Conc 33 % (32-34); Mean Corpuscular Volume 84 fl (84-94); Platelet Count 502 K/mm3 (140-440); Red Blood Count 3.35 M/mm3 (3.65-5.03); Red Cell Distribution Width 16.6 % (13.2-15.2)
[2018-06-04 06:16] LABS: BUN/Creatinine Ratio 40; Blood Urea Nitrogen 36 mg/dL (9-20); Calcium 8.4 mg/dL (8.4-10.2); Hemolysis Index 3
[2018-06-04] MEDS: ZINC SULFATE PO SCH (09:24)
[2018-06-04] MEDS: VITAMIN C PO SCH ×2 (09:25→21:19)
[2018-06-04] MEDS: LASIX PO SCH (09:25)
[2018-06-04] MEDS: FLOMAX PO SCH (09:25)
[2018-06-04] MEDS: PREVACID SOLUTAB FEEDTUBE SCH (09:26)
[2018-06-04] MEDS: KEPPRA PO SCH ×2 (09:26→21:20)
[2018-06-04] MEDS: SODIUM CHLORIDE FLUSH SYRINGE 10 ML IV SCH ×2 (09:36→21:23)
[2018-06-04] MEDS: NORVASC PO SCH (10:00)
[2018-06-04] MEDS: ZESTRIL PO SCH (10:00)
[2018-06-04] MEDS: Centrum Liq PO SCH (10:19)
[2018-06-04] MEDS ORDERED: SODIUM BICARBONATE FEEDTUBE PRN (14:08)
[2018-06-04] MEDS ORDERED: PANCREAZE DR 10,500 UNIT FEEDTUBE PRN (14:08)
[2018-06-04] MEDS ORDERED: SIMPLE SYRUP FEEDTUBE PRN ×2 (14:08)
[2018-06-04] MEDS: DUONEB *Not for PRN Use IH SCH ×3 (14:47→21:11)
--- NOTE | 2018-06-04 16:43 | Progress Note ---
Assessment and Plan Assessment and plan: 67 [facility]O Male Senior Living Facility Resident as [facility] with HTN, CVA, Contracture, Decubitus Ulcers, AL, DM, OA, Seizure Disorder, COPD, Dementia, BPH presents to ED for evaluation. Pt is confused and unable to provide history. Pt history taken from ED Staff, EMS, and SNF Staff. As per s taff, the patient was found to have anemia with HGB of 7.3. EMS notified, and patient transported to [facility] for further care and evaluation. Pt seen and evaluated in ED and found to have SIRS, Encephalopathy, and symptomatic anemia. Pt admitted to DIANA unit. No further history obtainable. Patient was admitted for anemia and given a pack of red blood cells with equilibration of hemoglobin is stable. He was also started on empiric antibiotic for urinary tract infection which by review is chronic and has been on multiple medications and has developed MDR. He did not demonstrate any infectious process from this UTI but did have a log of V. tach for which cardiology evaluated. The patient has chronic troponinemia and no further cardiac work up or intervention is recommended at this time. CAME FOR ANEMIA. - Chronic - Currently stable SIRS (systemic inflammatory response syndrome) continue ZOSYN. Likely underlying UTI review of prior records shows MDR organism Encephalopathy Neuro checks, supportive care, thyroid panel, seizure precautions, aspiration precautions Although he is able to assist with diet. Decubitus ulcer: wound care, supportive care. Anemia PRBC transfusion, supportive care. Continue oral iron +MRSA SCREEN ISOLATION PRECAUTIONS Hypernatremia -Treated with D5W - Stable Acute Cystitis - MDR pseudomonas in the past sensitive to zosyn - Continue Zosyn DVT prophylaxis: SCD to BLE while in bed. History Interval history: Patient was seen and evaluated this morning, patient is complaining of pain in the legs. Hospitalist Physical - Physical exam Narrative exam: Not in cardiopulmonary distress. The patient appeared well nourished and normally developed. Vital signs as documented. Head exam is unremarkable. No scleral icterus . Neck is without jugular venous distension, thyromegaly, or carotid bruits. Lungs are clear to auscultation. Cardiac exam reveals regular rate and Rhythm. . Abdominal exam reveals normal bowel sounds. ASSISTANT IN NURSING: Alert - Constitutional Vitals: Temp Pulse Resp BP Pulse Ox 98.2 F 110 H 20 106/62 97 06/04/18 14:42 06/04/18 14:42 06/04/18 14:42 06/04/18 14:42 06/04/18 14:42 General appearance: Present: no acute distress, other (frail, contracted, nonverbal and laying in a position) Results - Labs CBC & Chem 7: 06/04/18 05:07 06/04/18 05:07 Labs: Laboratory Last Values WBC 11.0 K/mm3 (4.5-11.0) 06/04/18 05:07 RBC 3.35 M/mm3 (3.65-5.03) L 06/04/18 05:07 Hgb 9.2 gm/dl (11.8-15.2) L 06/04/18 05:07 Hct 28.1 % (35.5-45.6) L 06/04/18 05:07 MCV 84 fl (84-94) 06/04/18 05:07 MCH 28 pg (28-32) 06/04/18 05:07 MCHC 33 % (32-34) 06/04/18 05:07 RDW 16.6 % (13.2-15.2) H 06/04/18 05:07 Plt Count 502 K/mm3 (140-440) H 06/04/18 05:07 Lymph % (Auto) 10.1 % (13.4-35.0) L 05/30/18 07:10 [place] % (Auto) 8.0 % (0.0-7.3) H 05/30/18 07:10 Eos % (Auto) 3.4 % (0.0-4.3) 05/30/18 07:10 Baso % (Auto) 0.9 % (0.0-1.8) 05/30/18 07:10 Lymph # 1.0 K/mm3 (1.2-5.4) L 05/30/18 07:10 [place] # 0.8 K/mm3 (0.0-0.8) 05/30/18 07:10 Eos # 0.4 K/mm3 (0.0-0.4) 05/30/18 07:10 Baso # 0.1 K/mm3 (0.0-0.1) 05/30/18 07:10 Seg Neutrophils % 77.6 % (40.0-70.0) H 05/30/18 07:10 Seg Neutrophils # 7.9 K/mm3 (1.8-7.7) H 05/30/18 07:10 Haptoglobin 439 mg/dL (43-212) H 05/30/18 15:36 PT 19.2 Sec. (12.2-14.9) H 05/29/18 Unknown INR 1.57 (0.87-1.13) H 05/29/18 Unknown APTT 52.8 Sec. (24.2-36.6) H 05/29/18 Unknown Sodium 138 mmol/L (137-145) 06/04/18 05:07 Potassium 4.8 mmol/L (3.6-5.0) 06/04/18 05:07 Chloride 101.8 mmol/L (98-107) 06/04/18 05:07 Carbon Dioxide 22 mmol/L (22-30) 06/04/18 05:07 Anion Gap 19 mmol/L 06/04/18 05:07 BUN 36 mg/dL (9-20) H 06/04/18 05:07 Creatinine 0.9 mg/dL (0.8-1.5) 06/04/18 05:07 Estimated GFR > 60 ml/min 06/04/18 05:07 BUN/Creatinine Ratio 40 % 06/04/18 05:07 Glucose 123 mg/dL (75-100) H 06/04/18 05:07 Calcium 8.4 mg/dL (8.4-10.2) 06/04/18 05:07 Magnesium 2.50 mg/dL (1.7-2.3) H 06/03/18 02:29 Total Bilirubin 0.40 mg/dL (0.1-1.2) 06/03/18 02:29 Direct Bilirubin < 0.2 mg/dL (0-0.2) 05/30/18 05:45 AST 14 units/L (5-40) 06/03/18 02:29 ALT 20 units/L (7-56) 06/03/18 02:29 Alkaline Phosphatase 186 units/L (35-129) H 06/03/18 02:29 Total Creatine Kinase 127 units/L (55-170) 06/03/18 17:59 CK-MB (CK-2) 1.3 ng/mL (0.0-4.0) 06/03/18 17:59 CK-MB (CK-2) Rel Index 1.0 (0-4) 06/03/18 17:59 Troponin T 0.045 ng/mL (0.00-0.029) H D 06/03/18 17:59 Total Protein 6.3 g/dL (6.3-8.2) 06/03/18 02:29 Albumin 2.2 g/dL (3.9-5) L 06/03/18 02:29 Albumin/Globulin Ratio 0.5 % 06/03/18 02:29 Triglycerides 76 mg/dL (2-149) 06/03/18 05:26 Cholesterol 83 mg/dL (50-199) 06/03/18 05:26 LDL Cholesterol Direct 44 mg/dL (50-130) L 06/03/18 05:26 HDL Cholesterol 28 mg/dL (40-59) L 06/03/18 05:26 Cholesterol/HDL Ratio 2.96 % 06/03/18 05:26 Urine Color Yellow (Yellow) 05/30/18 07:45 Urine Turbidity Clear (Clear) 05/30/18 07:45 Urine pH 7.0 (5.0-7.0) 05/30/18 07:45 Ur Specific [place] 1.014 (1.003-1.030) 05/30/18 07:45 Urine Protein 30 mg/dl mg/dL (Negative) 05/30/18 07:45 Urine Glucose (UA) Neg mg/dL (Negative) 05/30/18 07:45 Urine Ketones Neg mg/dL (Negative) 05/30/18 07:45 Urine Blood Neg (Negative) 05/30/18 07:45 Urine Nitrite Pos (Negative) 05/30/18 07:45 Urine Bilirubin Neg (Negative) 05/30/18 07:45 Urine Urobilinogen < 2.0 mg/dL (<2.0) 05/30/18 07:45 Ur Leukocyte Esterase Lg (Negative) 05/30/18 07:45 Urine WBC (Auto) 80.0 /HPF (0.0-6.0) H 05/30/18 07:45 Urine RBC (Auto) 2.0 /HPF (0.0-6.0) 05/30/18 07:45 Urine Bacteria (Auto) 1+ /HPF (Negative) 05/30/18 07:45 Urine Mucus Few /HPF 05/30/18 07:45 Blood Type O POSITIVE 05/29/18 11:07 Antibody Screen Negative 05/29/18 11:07 Crossmatch See Detail 05/29/18 11:07 Nutrition/Malnutrition Assess - Dietary Evaluation Nutrition/Malnutrition Findings: Nutrition Notes Start: 05/30/18 13:52 Freq: Status: Active Protocol: Document 06/04/18 14:02 CHANDRAKANT (Rec: 06/04/18 14:08 CHANDRAKANT SRW- [id number]) Nutrition Notes Initial or Follow up Brief Note Subjective/Other Information RD consulted for TF. Pt has PEG tube and receives EN support at [place]. Per RN, pt has a good appetite and will eat and drink if he is fed. Nutrition Intervention Change Diet Order: Continue current diet order Nutrition Support: Osmolite 1.5 at 50ml/hr. Provide 150ml water flush q4h. Kcal 1,800 Protein (gm) 75 Fluid (mL) 914 Add Supplement/Snack (indicate name/kcal D/C Glucerna shakes /protein ) Keep Mario BID Provides kCal: 190 Provides Protein (gm) 5 Goal #1 TF tolerance Goal #2 TF + PO intakes to meet 100% energy and pro needs Goal #3 Wt maintenance and/or gain Goal #4 Wound healing Follow-Up By: 06/06/18 Additional Comments F/U: TF tolerance, PO intakes, Mario, wt
[2018-06-04] MEDS: FLORANEX PO SCH ×2 (17:26→22:51)
[2018-06-04] MEDS: REMERON PO SCH (21:19)
[2018-06-04] MEDS: ARICEPT PO SCH (21:20)
[2018-06-05] MEDS: ELIQUIS PO SCH ×2 (03:59→15:13)
[2018-06-05] MEDS: ZOSYN/NS 4.5GM/100ML 4.5 GM/100 ML VIAL IV SCH ×2 (05:15→15:13)
[2018-06-05 08:56] VITALS: BP 97/60
--- NOTE | 2018-06-05 10:24 | Query-Infection ---
"Jose Martin Harris____Maria Fernanda Date:_06/05/18 Fitting Room Supervisor/CDS:___milvia Phone#:__[phone] Exercise your independent professional judgment when responding to this query. Questions asked do not imply a particular answer is desired or expected. We greatly appreciate your clarification on this issue. Clinical Documentation States: 67 YO Male Custodial Facility Resident as [facility] with HTN, CVA, Contracture, Decubitus Ulcers, [place], DM, OA, Seizure Disorder, COPD, Dementia, BPH presents to ED for evaluation. Pt is confused and unable to provide history. Assessment and plan: SIRS (systemic inflammatory response syndrome) continue ZOSYN. Likely underlying UTI Encephalopathy Decubitus ulcer: Anemia PRBC transfusion, supportive care. Continue oral iron +MRSA SCREEN Hypernatremia Acute Cystitis Clinical findings show: (please check applicable parameters) Infection, known /suspected, with some of the following indicators; Specify the infection: Acute Cystitis 05/29/18 WBC 11.6 ID 92 RR 22 Pt on IV antibiotic Zosyn General parameters [ ] Fever (core temp >38.30C or 100.40F) [ ] Hypothermia (core temp <36C) [X ] Heart rate >90 bpm [X ] Tachypnea: >20 bpm or pCO2 < 32 mmHg [ ] Altered mental status [ ] Significant edema / +ve fluid balance (>20 ml/kg 24 h) [ ] Hyperglycemia (Bl. glucose >110 mg/dl) w/o diabetes Inflammatory parameters [X ] Leukocytosis (white blood cell count >12,000/l) [ ] Leukopenia (white blood cell count <4,000/l) [ ] Bandemia (immature WBC > 10%) [ ] Leucocyte Left Shift [ ] Plasma procalcitonin>2 SD above the normal value Hemodynamic and tissue perfusion parameters [ ] Arterial hypotension(SBP <90 mmHg, MAP <70 mmHg,or a SBP drop >40 mmHg in adults) [ ] Hyperlactatemia (>3 mmol/l) [ ] Anion Gap (> 11mEG/l) [ ] Decreased capillary refill or mottling Organ dysfunction parameters [ ] Arterial hypoxemia (PaO2/FIO2 <300) [ ] Creatinine increase =0.5 mg/dl [ ] Acute oliguria (urine output <0.5 ml | kg |h or 45 mM/l for at least 2 hrs) [ ] Coagulation abnormalities (INR >1.5 or activated partial thromboplastin time >60 s) [ ] Ileus (absent tanvi wel sounds) [ ] Thrombocytopenia (platelet count <100,000/l) [ ] Hyperbilirubinemia (plasma total bilirubin >4 mg/dl) According to the clinical indications above, can Bacteremia be further specified? If so, please indicate below and in your Progress Notes and/ or Discharge Summary. Indicate if the condition was present on admission. PHYSICIAN RESPONSE: [ x] Sepsis [ ] Severe Sepsis [ ] Septic Shock [ ] Septicemia [ ] Sepsis now resolved [ ] SIRS due to non-infectious cause with organ dysfunction [ ] SIRS due to non-infectious cause without organ dysfunction [ ] Other: [ ] Comment/Explanation: Present on Admission: [x ] Yes (Y) [ ] Clinically undeterminable (W) [ ] No (N) [ ] Ruled Out Please also document response in your Progress Notes and/or Discharge Summary and indicate if the condition was present on admission Notes: SIRS/ SIRS WITH ORGAN DYSFUNCTION Systemic inflammatory response syndrome (SIRS) generally refers to the systemic response to trauma/shook or other insult such as Acute Myocardial Infarction, Acute Pancreatitis, and Major Surgery with symptoms including fever, tachycardia, tachypnea, and leukocytosis (1). BACTEREMIA Presence of viable bacteria in the circulating blood (2). This term is reserved for patients that do not manifest above SIRS response. SEPTICEMIA Generally refers to a systemic disease associated with the presence of pathological microorganisms or toxins in the blood, which can include bacteria, viruses, fungi or other organisms (1). SEPSIS Generally refers to SIRS due infection (1). SEVERE SEPSIS Generally refers to sepsis associated with acute organ dysfunction (1). SEPTIC SHOCK Generally refers to circulatory failure associated with severe sepsis (2), and defined as hypotension or hypoperfusion despite adequate fluid resuscitation (1 hour) (3). REFERENCES: 1. [place] [employer]/Society of Critical Care Medicine Consensus Conference. Definitions for sepsis and organ failure and guidelines for the use of innovative therapies in sepsis. Critical Care Med 1992;20:864 - 74. 2. Shiraz y MM, Eli MP, Mil JACEK, Matt E, Stan D, Bryson D, Dumont J, [place] SM, Amador JL, Treva G; International Sepsis Definitions Conference. 2001 SCCM/ESICM/ACCP/ATS/SIS International Sepsis Definitions Conference. Intensive Care Med. 2002 Apr;29(4):530-8. Epub 2002Aug 15. Review. PubMed PMID:[id number] 3. ICD-9-CM Official Guidelines for Coding and Reporting 4. Medscape Drugs, Diseases and Procedures references 5. [employer] Textbook of Internal Medicine. 18th Edition MTDD"
[2018-06-05] MEDS: Centrum Liq PO SCH (10:27)
[2018-06-05] MEDS: ZINC SULFATE PO SCH (10:27)
[2018-06-05] MEDS: KEPPRA PO SCH (10:28)
[2018-06-05] MEDS: FLORANEX PO SCH (10:28)
[2018-06-05] MEDS: VITAMIN C PO SCH (10:28)
[2018-06-05] MEDS: LASIX PO SCH (10:29)
[2018-06-05] MEDS: FLOMAX PO SCH (10:29)
[2018-06-05] MEDS: PREVACID SOLUTAB FEEDTUBE SCH (10:29)
[2018-06-05] MEDS: NORVASC PO SCH (10:30)
[2018-06-05] MEDS: COREG PO SCH (10:30)
[2018-06-05] MEDS: SODIUM CHLORIDE FLUSH SYRINGE 10 ML IV SCH (10:31)
[2018-06-05] MEDS: ZESTRIL PO SCH (10:31)
[2018-06-05] MEDS: DUONEB *Not for PRN Use IH SCH (10:50)
--- NOTE | 2018-06-05 14:21 | Discharge Summary ---
Providers - Providers Date of Admission: 05/29/18 12:58 Date of discharge: 06/05/18 Attending physician: CAROLINE TRAMMELL MD 05/29/18 14:36 Consult to Wound/ET Nurse [CONS] Routine Reason For Exam: wound eval 06/03/18 10:07 Physical Therapy Evaluation and Treat [CONS] Routine Comment: Reason For Exam: Evaluate - Generalized Weakness 06/03/18 17:29 Consult to Dietitian/Nutrition [CONS] Routine Physician Instructions: Assess nutrtn needs, initiate, modify, manage TF Reason For Exam: Reason for Consult: Write/Manage Tube Feeding Reason for Consult: Write/Manage Tube Feeding Primary care physician: RECEIVING TANK OPERATOR Hospitalization Reason for admission: SIRS, mild anemia Condition: Fair Hospital course: 67 YO Male Care Home Facility Resident at [facility] with HTN, CVA, Contracture, Decubitus Ulcers, MA, DM, OA, Seizure Disorder, COPD, Dementia, BPH presents to ED for evaluation. Pt was confused and unable to provide history. Pt history taken from ED Staff, EMS, and SNF Staff. As per staff, the patient was found to have anemia with HGB of 7.3. EMS notified, and patient transported to [facility] for further care and evaluation. Pt seen and evaluated in ED and found to have SIRS, Encephalopathy, and symptomatic anemia. Pt admitted to [facility]NA unit. No further history obtainable. Patient was admitted for anemia and given a pack of red blood cells with equilibration of hemoglobin is stable. He was also started on empiric antibiotic for urinary tract infection which by review is chronic and has been on multiple medications and has developed MDR. He did not demonstrate any infectious process from this UTI but did have a log of V. tach for which cardiology evaluated. The patient has chronic troponinemia and no further cardiac work up or intervention is recommended at this time per cadiology. CAME FOR ANEMIA. Chronic, Currently stable. Patient has multiple dcubitus ulcer and wound care evaluated and treated him. Patient was hypernatremic and was treated with D5w and resolved. Acute Cystitis; MDR pseudomonas in the past sensitive to zosyn. Was treated with zosyn and doesn't need to be continued at discharge. patient discharged back to [facility]. Disposition: [id number]/TX-03 SNF W [facility] CERT Time spent for discharge: 34 minutes - Discharge Diagnoses (1) Anemia Status: Acute (2) Decubitus ulcer Status: Acute Qualifiers: Pressure injury location: upper back (3) Nonischemic cardiomyopathy Status: Acute (4) SIRS (systemic inflammatory response syndrome) Status: Acute Core Measure Documentation - Palliative Care Palliative Care/ Comfort Measures: Not Applicable - Core Measures Any of the following diagnoses?: none Exam - Physical Exam Narrative exam: Not in cardiopulmonary distress. The patient appeared well nourished and normally developed. Vital signs as documented. Head exam is unremarkable. No scleral icterus . Neck is without jugular venous distension, thyromegaly, or carotid bruits. Lungs are clear to auscultation. Cardiac exam reveals regular rate and Rhythm. . Abdominal exam reveals normal bowel sounds. contracted extremities, multiple decubitus ulcer. SIDE LASTER TACK: Alert and oriented - Constitutional Vitals: Temp Pulse Resp BP Pulse Ox 99.6 F 96 H 18 97/60 97 06/05/18 08:04 06/05/18 08:04 06/05/18 08:04 06/05/18 10:30 06/05/18 08:04 Plan Activity: no restrictions Weight Bearing Status: Full Weight Bearing Diet: low cholesterol, low salt Follow up with: PRIMARY CARE, [Primary Care Provider] - 3-5 Days Prescriptions: Ferrous Sulfate [Ferrous Sulfate Oral Liq 300 Mg/5 Ml] 300 mg FEEDTUBE BID 30 Days ml
== END 2018-06-05 17:45 | DRG 70 ==
LOC: EDBD → ED 10:34 → 2B-ACE 12:58
PROVIDERS: ADMIT Internal Medicine; ATTEND Internal Medicine
PROC: 30233N1 Transfusion of Nonautologous Red Blood Cells into Peripheral Vein, Percutaneous Approach (ICD-10-PCS; principal; 2018-05-29)
DX: G93.41 Metabolic encephalopathy (principal); E43 Unspecified severe protein-calorie malnutrition; R65.10 Systemic inflammatory response syndrome (SIRS) of non-infectious origin without acute organ dysfunction; I42.9 Cardiomyopathy, unspecified; N30.00 Acute cystitis without hematuria; E87.0 Hyperosmolality and hypernatremia; D64.9 Anemia, unspecified; L89.109 Pressure ulcer of unspecified part of back, unspecified stage; I50.9 Heart failure, unspecified; I11.0 Hypertensive heart disease with heart failure; B96.5 Pseudomonas (aeruginosa) (mallei) (pseudomallei) as the cause of diseases classified elsewhere; Z16.24 Resistance to multiple antibiotics; J44.9 Chronic obstructive pulmonary disease, unspecified; L89.159 Pressure ulcer of sacral region, unspecified stage; G40.909 Epilepsy, unspecified, not intractable, without status epilepticus; N40.0 Benign prostatic hyperplasia without lower urinary tract symptoms; Z86.73 Personal history of transient ischemic attack (TIA), and cerebral infarction without residual deficits; I25.2 Old myocardial infarction; Z82.49 Family history of ischemic heart disease and other diseases of the circulatory system; Z88.6 Allergy status to analgesic agent; Z79.899 Other long term (current) drug therapy; Z87.442 Personal history of urinary calculi; Z68.22 Body mass index [BMI] 22.0-22.9, adult
CPT/HCPCS: 36415; 71045; 80048; 80053; 80061; 80076; 81001; 82271; 82550; 82553; 82962; 83010; 83735; 84484; 85014; 85018; 85025; 85027; 85610; 85730; 86850; 86900; 86901; 86920; 87116; 93005; 93010; 94640; G0378; C9113; J2543; J7040; P9016

== ENCOUNTER 2018-06-13 12:37 | Inpatient (IN) | payer MEDICARE ==
[2018-06-13] MEDS ORDERED: ZOSYN/NS 4.5GM/100ML 4.5 GM/100 ML VIAL IV ONE (13:55)
[2018-06-13] MEDS ORDERED: NACL 0.9% 1000 ML IV ONE (14:02)
[2018-06-13] MEDS ORDERED: NACL 0.9% 1000 ML 1,000 ML ONE (14:06)
[2018-06-13 14:21] LABS: Basophils # (Auto) 0.1 K/mm3 (0.0-0.1); Basophils % (Auto) 0.6 % (0.0-1.8); Eosinophils # (Auto) 0.2 K/mm3 (0.0-0.4); Lymphocytes # (Auto) 1.6 K/mm3 (1.2-5.4); Lymphocytes % (Auto) 8.2 % (13.4-35.0); Mean Corpuscular HGB Conc 32 % (32-34); Mean Corpuscular Volume 84 fl (84-94); Monocytes # (Auto) 1.4 K/mm3 (0.0-0.8); Platelet Count 621 K/mm3 (140-440); Red Cell Distribution Width 16.7 % (13.2-15.2)
[2018-06-13 14:32] LABS: Hematocrit 16.7 % (35.5-45.6); Hemoglobin 5.4 gm/dl (11.8-15.2)
[2018-06-13] MEDS ORDERED: VANCOMYCIN 1,750 MG in NACL 0.9% 500 ML 500 ML IV ONE (14:55)
[2018-06-13 14:57] LABS: Alanine Aminotransferase 44 units/L (7-56); Albumin 2.6 g/dL (3.9-5); BUN/Creatinine Ratio 34; Blood Urea Nitrogen 31 mg/dL (9-20); Calcium 9.6 mg/dL (8.4-10.2); Hemolysis Index 5
--- NOTE | 2018-06-13 15:10 | XRay Report ---
AP CHEST: HISTORY: Fever Limited exam. AP view of the chest demonstrates a normal mediastinal and cardiac contour with clear lungs and normal bony and soft tissue structures. IMPRESSION: Unremarkable AP chest.
[2018-06-13] MEDS ORDERED: NACL 0.9% 500 ML 500 ML IV ONE (15:37)
--- NOTE | 2018-06-13 15:40 | Emergency Department Report ---
ED Fever HPI - General Chief Complaint: Fever Stated Complaint: FEBRILE/INFECTED WOUNDS Time Seen by Provider: 06/13/18 13:47 Source: old records (echo 02/2018 EF 50-55%) Exam Limitations: physical impairment - History of Present Illness Initial Comments: 67-year-old male with a past medical history of dementia, CVA, arthritis, thyroidism, obstructive uropathy, multiple chronic pressure ulcers, hypothyroidism, and frequent UTIs with multidrug resistance presents to the hospital from [facility] with a fever. Patient is alert and oriented to self, place, but not to year. He denies any pain. He is chronically debilitated with multiple contractures and pressure ulcers. He also presents with a Chaudhary catheter. Patient was recently admitted here and discharged earlier this month after treatment for UTI, SIRS, and anemia requiring blood transfusion. ED Review of Systems ROS: Stated complaint: FEBRILE/INFECTED WOUNDS Other details as noted in HPI Comment: All other systems reviewed and negative ED Past Medical Hx - Past Medical History Previous Medical History?: Yes Hx Hypertension: Yes Hx CVA: Yes Hx Heart Attack/AMI: Yes Hx Congestive Heart Failure: No Hx Diabetes: Yes (States does not treat) Hx Deep Vein Thrombosis: No Hx Pulmonary Embolism: No Hx GERD: No Hx Liver Disease: No Hx Renal Disease: No Hx of Cancer: No Hx Sickle Cell Disease: No Hx Arthritis: Yes Hx Headaches / Migraines: No Hx Seizures: Yes Hx Kidney Stones: Yes Hx Psychiatric Treatment: No Hx Asthma: No Hx COPD: Yes Hx Tuberculosis: No Hx Dementia: Yes Hx HIV: No Additional medical history: Benign prostatic hypertrophy - Surgical History Past Surgical History?: Yes Hx Coronary Stent: No Hx Open Heart Surgery: No Hx Pacemaker: No Hx Internal Defibrillator: No Hx Cholecystectomy: No Hx Appendectomy: No Hx Breast Surgery: No Additional Surgical History: debridement of sacral wound, gastrostomy - Social History Smoking Status: Never Smoker - Medications Home Medications: Home Medications Medication Instructions Recorded Confirmed Last Taken Type amLODIPine [Norvasc] 10 mg PO DAILY 06/02/16 06/13/18 Unknown History levETIRAcetam [Keppra] 500 mg PO BID #60 07/23/17 06/13/18 Unknown Rx Multivit-Min/Iron Fum/Folic AC 1 each PO DAILY 03/24/18 06/13/18 Unknown History [Bleoz-Fnimlbl-Cryfutlq Tablet] Atorvastatin Calcium [Lipitor] 40 mg PO HS 06/13/18 06/13/18 Unknown History Carvedilol [Coreg] 6.25 mg PO BID 06/13/18 06/13/18 Unknown History ED Physical Exam - General Limitations: Physical Limitation - Other Other exam information: General: No limitations, patient is alert in no acute distress Head exam: Atraumatic, normocephalic Eyes exam: Normal appearance ENT: Moist mucous membrane, normal oropharynx Neck exam: Normal inspection Respiratory exam: Clear to auscultation bilateral, no wheezes, rales, crackles Cardiovascular: Normal rate and rhythm Abdomen: Soft, nondistended, and nontender, with normal bowel sounds, no rebound, or guarding, passed a pack to Extremity: Limited range of motion of lower extremities and contractions Back: Normal Inspection, full range of motion, no tenderness Neurologic: Alert, oriented x2 Psychiatric: normal affect, normal mood Skin: Multiple pressure ulcers, see nurse note and picture ED Course Vital Signs 06/13/18 06/13/18 06/13/18 12:42 13:31 13:46 Temperature 103.1 F H Pulse Rate 104 H 107 H 107 H Respiratory 18 16 18 Rate Blood Pressure 138/78 92/55 O2 Sat by Pulse 100 94 Oximetry 06/13/18 06/13/18 06/13/18 14:00 14:16 14:30 Temperature Pulse Rate 103 H 103 H Respiratory 12 16 Rate Blood Pressure 92/55 108/63 108/63 O2 Sat by Pulse 98 98 99 Oximetry 06/13/18 06/13/18 06/13/18 14:46 15:00 15:16 Temperature Pulse Rate Respiratory Rate Blood Pressure 108/63 103/70 103/70 O2 Sat by Pulse 96 100 Oximetry 06/13/18 06/13/18 06/13/18 15:34 15:46 16:00 Temperature Pulse Rate 103 H 100 H 100 H Respiratory 19 16 19 Rate Blood Pressure 103/70 113/67 108/63 O2 Sat by Pulse 91 33 L 96 Oximetry 06/13/18 06/13/18 06/13/18 16:16 16:30 16:46 Temperature Pulse Rate 97 H 98 H 100 H Respiratory 28 H 25 H 25 H Rate Blood Pressure 103/70 103/70 103/70 O2 Sat by Pulse 95 85 87 Oximetry ED Medical Decision Making - Lab Data Result diagrams: 06/13/18 14:02 06/13/18 14:02 Lab Results 06/13/18 06/13/18 06/13/18 Range/Units 14:02 14:02 14:02 WBC 19.5 H (4.5-11.0) K/mm3 RBC 2.00 L (3.65-5.03) M/mm3 Hgb 5.4 L* (11.8-15.2) gm/dl Hct 16.7 L* (35.5-45.6) % MCV 84 (84-94) fl MCH 27 L (28-32) pg MCHC 32 (32-34) % RDW 16.7 H (13.2-15.2) % Plt Count 621 H (140-440) K/mm3 Lymph % (Auto) 8.2 L (13.4-35.0) % [place] % (Auto) 7.0 (0.0-7.3) % Eos % (Auto) 1.0 (0.0-4.3) % Baso % (Auto) 0.6 (0.0-1.8) % Lymph # 1.6 (1.2-5.4) K/mm3 [place] # 1.4 H (0.0-0.8) K/mm3 Eos # 0.2 (0.0-0.4) K/mm3 Baso # 0.1 (0.0-0.1) K/mm3 Seg Neutrophils % 83.2 H (40.0-70.0) % Seg Neutrophils # 16.2 H (1.8-7.7) K/mm3 VBG pH (7.320-7.420) Sodium 141 (137-145) mmol/L Potassium 5.4 H (3.6-5.0) mmol/L Chloride 101.3 (98-107) mmol/L Carbon Dioxide 25 (22-30) mmol/L Anion Gap 20 mmol/L BUN 31 H (9-20) mg/dL Creatinine 0.9 (0.8-1.5) mg/dL Estimated GFR > 60 ml/min BUN/Creatinine Ratio 34 % Glucose 104 H (75-100) mg/dL Lactic Acid 1.60 (0.7-2.0) mmol/L Calcium 9.6 (8.4-10.2) mg/dL Total Bilirubin 0.30 (0.1-1.2) mg/dL AST 43 H (5-40) units/L ALT 44 (7-56) units/L Alkaline Phosphatase 339 H (35-129) units/L Total Protein 8.1 (6.3-8.2) g/dL Albumin 2.6 L (3.9-5) g/dL Albumin/Globulin Ratio 0.5 % 06/13/18 Range/Units 14:02 WBC (4.5-11.0) K/mm3 RBC (3.65-5.03) M/mm3 Hgb (11.8-15.2) gm/dl Hct (35.5-45.6) % MCV (84-94) fl MCH (28-32) pg MCHC (32-34) % RDW (13.2-15.2) % Plt Count (140-440) K/mm3 Lymph % (Auto) (13.4-35.0) % [place] % (Auto) (0.0-7.3) % Eos % (Auto) (0.0-4.3) % Baso % (Auto) (0.0-1.8) % Lymph # (1.2-5.4) K/mm3 [place] # (0.0-0.8) K/mm3 Eos # (0.0-0.4) K/mm3 Baso # (0.0-0.1) K/mm3 Seg Neutrophils % (40.0-70.0) % Seg Neutrophils # (1.8-7.7) K/mm3 VBG pH 7.435 H (7.320-7.420) Sodium (137-145) mmol/L Potassium (3.6-5.0) mmol/L Chloride (98-107) mmol/L Carbon Dioxide (22-30) mmol/L Anion Gap mmol/L BUN (9-20) mg/dL Creatinine (0.8-1.5) mg/dL Estimated GFR ml/min BUN/Creatinine Ratio % Glucose (75-100) mg/dL Lactic Acid (0.7-2.0) mmol/L Calcium (8.4-10.2) mg/dL Total Bilirubin (0.1-1.2) mg/dL AST (5-40) units/L ALT (7-56) units/L Alkaline Phosphatase (35-129) units/L Total Protein (6.3-8.2) g/dL Albumin (3.9-5) g/dL Albumin/Globulin Ratio % - EKG Data -: EKG Interpreted by Me EKG shows normal: sinus rhythm, axis (qrs -52), QRS complexes (qrsd 138), ST-T waves (no stemi) Rate: normal (98) - EKG Data When compared to previous EKG there are: no significant change - Radiology Data Radiology results: report reviewed Portable chest x-ray: Unremarkable - Medical Decision Making Patient treated empirically with vancomycin and Zosyn for sepsis. 30 mL per KG bolus of normal saline initiated. 2 units of blood ordered for anemia. Urine collection pending - Differential Diagnosis sepsis, fever, pneumonia, infected decubitus ulcer, UTI Critical Care Time: No Critical care attestation.: If time is entered above; I have spent that time in minutes in the direct care of this critically ill patient, excluding procedure time. ED Disposition Clinical Impression: Decubitus ulcers, Anemia, Dementia Sepsis Qualifiers: Sepsis type: sepsis due to unspecified organism Qualified Code(s): A41.9 - S epsis, unspecified organism Disposition: 09 OP ADMIT IP TO THIS HOSP Is pt being admited?: Yes Condition: Stable Time of Disposition: 15:46 (DR Leija/hosp)
[2018-06-13] MEDS ORDERED: TYLENOL FEEDTUBE ONE (15:42)
--- NOTE | 2018-06-13 15:55 | History and Physical Report ---
History of Present Illness Chief complaint: Confused History of present illness: 67 YO Male [facility] Facility Resident as [facility] with HTN, CVA, Obstructive Uropathy, Contracture, Decubitus Ulcers, DE, DM, OA, Seizure Disorder, COPD, Dementia, BPH presents to ED for evaluation. Pt is confused and unable to provide history. Pt history taken from ED Staff, EMS, and SNF Staff. As per staff, the patient was found to have fever to 103. EMS notified and patient transported to [facility] for further care and evaluation. Pt seen and evaluated in ED and found to have sepsis, Encephalopathy, and symptomatic anemia. Pt admitted to [facility] unit. No further history obtainable. Past History Past Medical History: acute DE, COPD, diabetes, hypertension, seizures, stroke, other (Sacral Ducubitus Ulcers, ) Past Surgical History: No surgical history, Other (PEG placement) Social history: single. denies: smoking, alcohol abuse, prescription drug abuse Family history: hypertension Past History Past Medical History: acute DE, arthritis, COPD, diabetes, hypertension, seizures Past Surgical History: Other (G Tube) Social history: single. denies: smoking, alcohol abuse, prescription drug abuse Family history: diabetes, hypertension Medications and Allergies Allergies Allergy/AdvReac Type Severity Reaction Status Date / Time tramadol Allergy Unknown Verified 03/23/18 17:14 Home Medications Medication Instructions Recorded Confirmed Last Taken Type amLODIPine [Norvasc] 10 mg PO DAILY 06/02/16 06/13/18 Unknown History levETIRAcetam [Keppra] 500 mg PO BID #60 07/23/17 06/13/18 Unknown Rx Multivit-Min/Iron Fum/Folic AC 1 each PO DAILY 03/24/18 06/13/18 Unknown History [Edqzo-Swauplk-Zulctorf Tablet] Atorvastatin Calcium [Lipitor] 40 mg PO HS 06/13/18 06/13/18 Unknown History Carvedilol [Coreg] 6.25 mg PO BID 06/13/18 06/13/18 Unknown History Active Meds: Active Medications Vancomycin HCl 1,750 mg/ (Sodium Chloride) 535 mls @ 267.5 mls/hr IV ONCE ONE; Protocol Stop: 06/13/18 16:54 Review of Systems ROS unobtainable: due to mental status Exam - Constitutional Vitals: Temp Pulse Resp BP Pulse Ox 103.1 F H 104 H 18 138/78 100 06/13/18 12:42 06/13/18 12:42 06/13/18 12:42 06/13/18 12:42 06/13/18 12:42 General appearance: Present: mild distress - EENT Eyes: Present: miosis - Neck Neck: Present: supple, normal ROM - Respiratory Respiratory effort: normal Respiratory: bilateral: diminished - Cardiovascular Heart Sounds: Present: S1 & S2. Absent: rub, click - Extremities Extremities: pulses symmetrical, No edema Peripheral Pulses: abnormal (cqpillqry refill greater than 3.5 seconds) - Abdominal General gastrointestinal: Present: soft, non-tender, non-distended, normal bowel sounds Male genitourinary: Present: normal - Integumentary Integumentary: Present: clear, dry, pale, decreased turgor - Musculoskeletal Musculoskeletal: generalized weakness - Psychiatric Psychiatric: no appropriate mood/affect, no intact judgment & insight, no memory intact - Neurologic Neurologic: focal deficits, no moves all extremities, no gait normal Results - Labs CBC & Chem 7: 06/13/18 14:02 06/13/18 14:02 Labs: Abnormal lab results 06/13/18 06/13/18 06/13/18 Range/Units 14:02 14:02 14:02 WBC 19.5 H (4.5-11.0) K/mm3 RBC 2.00 L (3.65-5.03) M/mm3 Hgb 5.4 L* (11.8-15.2) gm/dl Hct 16.7 L* (35.5-45.6) % MCH 27 L (28-32) pg RDW 16.7 H (13.2-15.2) % Plt Count 621 H (140-440) K/mm3 Lymph % (Auto) 8.2 L (13.4-35.0) % [place] # 1.4 H (0.0-0.8) K/mm3 Seg Neutrophils % 83.2 H (40.0-70.0) % Seg Neutrophils # 16.2 H (1.8-7.7) K/mm3 VBG pH 7.435 H (7.320-7.420) Potassium 5.4 H (3.6-5.0) mmol/L BUN 31 H (9-20) mg/dL Glucose 104 H (75-100) mg/dL AST 43 H (5-40) units/L Alkaline Phosphatase 339 H (35-129) units/L Albumin 2.6 L (3.9-5) g/dL Assessment and Plan - Patient Problems (1) Sepsis Current Visit: Yes Status: Acute Qualifiers: Sepsis type: sepsis due to unspecified organism Qualified Code(s): A41.9 - Sepsis, unspecified organism Plan to address problem: IV antibiotic therapy, IVF resuscitation, monitor uop q shift, serial lactic acid, chest x ray, urinalysis, blood cultures. (2) HTN (hypertension) Current Visit: Yes Status: Acute Qualifiers: Hypertension type: essential hypertension Qualified Code(s): I10 - Essential (primary) hypertension Plan to address problem: monitor bp q shift, continue medical management (3) Diabetes Current Visit: Yes Status: Acute Plan to address problem: ADA diet, insulin, accu check (4) Anemia Current Visit: Yes Status: Acute Plan to address problem: PRBC Transfusion, repeat cbc. (5) DVT prophylaxis Current Visit: Yes Status: Acute Plan to address problem: SCD to BLE while in bed.
[2018-06-13 18:00] LABS: Bilirubin,Urine NEG (Negative); Blood,Urine SM (Negative); Color,Urine Yellow (Yellow); Urobilinogen,Urine < 2.0 mg/dL (<2.0)
[2018-06-13] MEDS ORDERED: TYLENOL ONE (19:01)
[2018-06-13] MEDS ORDERED: SODIUM CHLORIDE FLUSH SYRINGE 10 ML IV PRN (22:35)
[2018-06-13] MEDS ORDERED: TYLENOL PO PRN (22:35)
[2018-06-13] MEDS ORDERED: ZOFRAN IV PRN (22:35)
[2018-06-13] MEDS ORDERED: PROVENTIL IH PRN (22:35)
[2018-06-13] MEDS: KEPPRA PO SCH (22:46)
[2018-06-14] MEDS ORDERED: NACL 0.9% 500 ML 500 ML IV ONE ×2 (01:00→13:00)
[2018-06-14] MEDS: KEPPRA PO SCH ×2 (09:18→21:46)
[2018-06-14] MEDS: THERAGRAN-M Tab PO SCH (09:18)
[2018-06-14] MEDS: NORVASC PO SCH (09:18)
[2018-06-14] MEDS: SODIUM CHLORIDE FLUSH SYRINGE 10 ML IV SCH ×2 (09:19→22:07)
[2018-06-14] MEDS ORDERED: NON-FORMULARY (Multivit-Min/Iron Fum/Folic Ac [Multi-Vitamin-Minerals Tablet] 1 EACH) PO SCH (10:00)
[2018-06-14] MEDS: DAKIN'S HALF STRENGTH TP SCH (12:07)
--- NOTE | 2018-06-14 13:36 | Progress Note ---
Assessment and Plan Assessment and plan: 67 YO Male Long Term Facility Resident as [facility] with HTN, CVA, Obstructive Uropathy, Contracture, Decubitus Ulcers, NC, DM, OA, Seizure Disorder, COPD, Dementia, BPH presents to ED for evaluation. To the ED with complaints of fever. Patient is alert and oriented to person place but not to time. Vision was noted to have a temperature 103. EMS notified and patient transported to [facility] for further care and evaluation. Pt seen and evaluated in ED and found to have sepsis, Encephalopathy, and symptomatic anemia. Pt admitted to [facility] unit. No further history obtainable. The patient was discharged from the hospital following treatments for acute UTI with known history of multi drug resistant organisms in the past. Sepsis Current Visit: Yes Status: Acute Qualifiers: Sepsis type: sepsis due to unspecified organism Qualified Code(s): A41.9 - Sepsis, unspecified organism Plan to address problem: IV antibiotic therapy, IVF resuscitation, monitor uop q shift, serial lactic acid, chest x ray, urinalysis, blood cultures. ID consult Prior hx of MDR HTN (hypertension) Current Visit: Yes Status: Acute Qualifiers: Hypertension type: essential hypertension Qualified Code(s): I10 - Essential (primary) hypertension Plan to address problem: monitor bp q shift, continue medical management Diabetes Current Visit: Yes Status: Acute Plan to address problem: ADA diet, insulin, accu check Severe Anemia Current Visit: Yes Status: Acute Plan to address problem: PRBC Transfusion, repeat cbc. avoid NSAIDS AND ANTIPLATELETS. NO CLEAR BLEEDING SOURCE Multiple pressure ulcers at different stages Wound care consult Toxic Metabolic Encephalopathy Current Visit: Yes Status: Acute Plan to address problem: supportive care, thyroid panel, seizure precautions, aspiration precautions Although he is able to assist with diet. +MRSA SCREEN ISOLATION PRECAUTIONS DVT prophylaxis Current Visit: Yes Status: Acute Plan to address problem: SCD to BLE while in bed. History Interval history: Patient is seen today for: Sepsis Seen and examined at bedside; 24hour events reviewed; nursing staff ; no adverse overnight events reported to me; Denies any chest pain, nausea, vomiting, fernando rrhea or admission with multiple pressure ulcers. Chronically ill appearing. detention resident No fever noted blood pressure controlled Hospitalist Physical - Physical exam Narrative exam: Narrative exam: General appearance: Present: Resting comfortably in no acute distress - EENT Eyes: Present: miosis - Neck Neck: Present: supple, normal ROM - Respiratory Respiratory effort: normal Respiratory: bilateral: CTA - Cardiovascular Heart Sounds: Present: S1 & S2. Absent: rub, click - Extremities Extremities: abnormal (contracture, pressure sores bilaterally) Peripheral Pulses: within normal limits - Abdominal General gastrointestinal: Present: soft, non-tender, non-distended, normal bowel sounds Male genitourinary: Present: normal - Integumentary Integumentary: Present: clear, dry, decreased turgor - Musculoskeletal Musculoskeletal: generalized weakness - Psychiatric Psychiatric: no appropriate mood/affect, no intact judgment & insight, no memory intact - Neurologic Neurologic: focal deficits, no moves all extremities, no gait normal - Constitutional Vitals: Temp Pulse Resp BP Pulse Ox 98.7 F 86 18 136/72 98 06/14/18 08:13 06/14/18 08:13 06/14/18 08:13 06/14/18 08:13 06/14/18 08:13 General appearance: Present: mild distress Results - Labs CBC & Chem 7: 06/13/18 14:02 06/13/18 14:02 Labs: Laboratory Last Values WBC 19.5 K/mm3 (4.5-11.0) H 06/13/18 14:02 RBC 2.00 M/mm3 (3.65-5.03) L 06/13/18 14:02 Hgb 5.4 gm/dl (11.8-15.2) L* 06/13/18 14:02 Hct 16.7 % (35.5-45.6) L* 06/13/18 14:02 MCV 84 fl (84-94) 06/13/18 14:02 MCH 27 pg (28-32) L 06/13/18 14:02 MCHC 32 % (32-34) 06/13/18 14:02 RDW 16.7 % (13.2-15.2) H 06/13/18 14:02 Plt Count 621 K/mm3 (140-440) H 06/13/18 14:02 Lymph % (Auto) 8.2 % (13.4-35.0) L 06/13/18 14:02 [place] % (Auto) 7.0 % (0.0-7.3) 06/13/18 14:02 Eos % (Auto) 1.0 % (0.0-4.3) 06/13/18 14:02 Baso % (Auto) 0.6 % (0.0-1.8) 06/13/18 14:02 Lymph # 1.6 K/mm3 (1.2-5.4) 06/13/18 14:02 [place] # 1.4 K/mm3 (0.0-0.8) H 06/13/18 14:02 Eos # 0.2 K/mm3 (0.0-0.4) 06/13/18 14:02 Baso # 0.1 K/mm3 (0.0-0.1) 06/13/18 14:02 Seg Neutrophils % 83.2 % (40.0-70.0) H 06/13/18 14:02 Seg Neutrophils # 16.2 K/mm3 (1.8-7.7) H 06/13/18 14:02 VBG pH 7.435 (7.320-7.420) H 06/13/18 14:02 Sodium 141 mmol/L (137-145) 06/13/18 14:02 Potassium 5.4 mmol/L (3.6-5.0) H 06/13/18 14:02 Chloride 101.3 mmol/L (98-107) 06/13/18 14:02 Carbon Dioxide 25 mmol/L (22-30) 06/13/18 14:02 Anion Gap 20 mmol/L 06/13/18 14:02 BUN 31 mg/dL (9-20) H 06/13/18 14:02 Creatinine 0.9 mg/dL (0.8-1.5) 06/13/18 14:02 Estimated GFR > 60 ml/min 06/13/18 14:02 BUN/Creatinine Ratio 34 % 06/13/18 14:02 Glucose 104 mg/dL (75-100) H 06/13/18 14:02 POC Glucose 78 (70-105) 06/14/18 12:08 Lactic Acid 0.80 mmol/L (0.7-2.0) 06/13/18 23:30 Calcium 9.6 mg/dL (8.4-10.2) 06/13/18 14:02 Total Bilirubin 0.30 mg/dL (0.1-1.2) 06/13/18 14:02 AST 43 units/L (5-40) H 06/13/18 14:02 ALT 44 units/L (7-56) 06/13/18 14:02 Alkaline Phosphatase 339 units/L (35-129) H 06/13/18 14:02 Total Protein 8.1 g/dL (6.3-8.2) 06/13/18 14:02 Albumin 2.6 g/dL (3.9-5) L 06/13/18 14:02 Albumin/Globulin Ratio 0.5 % 06/13/18 14:02 Urine Color Yellow (Yellow) 06/13/18 17:15 Urine Turbidity Clear (Clear) 06/13/18 17:15 Urine pH 8.0 (5.0-7.0) H 06/13/18 17:15 Ur Specific [place] 1.013 (1.003-1.030) 06/13/18 17:15 Urine Protein 30 mg/dl mg/dL (Negative) 06/13/18 17:15 Urine Glucose (UA) Neg mg/dL (Negative) 06/13/18 17:15 Urine Ketones Neg mg/dL (Negative) 06/13/18 17:15 Urine Blood Sm (Negative) 06/13/18 17:15 Urine Nitrite Neg (Negative) 06/13/18 17:15 Urine Bilirubin Neg (Negative) 06/13/18 17:15 Urine Urobilinogen < 2.0 mg/dL (<2.0) 06/13/18 17:15 Ur Leukocyte Esterase Mod (Negative) 06/13/18 17:15 Urine WBC (Auto) 46.0 /HPF (0.0-6.0) H 06/13/18 17:15 Urine RBC (Auto) 12.0 /HPF (0.0-6.0) 06/13/18 17:15 U Epithel Cells (Auto) < 1.0 /HPF (0-13.0) 06/13/18 17:15 Blood Type O POSITIVE 06/13/18 22:42 Antibody Screen Negative 06/13/18 22:42 Crossmatch See Detail 06/13/18 22:42
[2018-06-14] MEDS: D5/0.45NS 1,000 ML IV SCH (13:45)
--- NOTE | 2018-06-14 13:56 | Consultation ---
History of Present Illness - Reason for Consult Consult date: 06/14/18 sepsis Requesting physician: TRACEY ROTH - History of Present Illness 67 y/o male [facility] resident with history of stroke, dementia, CHF, COPD, diabetes, previous Prostate abscess and hypertension, known to ID, seen in mid February 2018 with sepsis, MRSA bacteremia, acute kidney injury and leukocytosis. He was discharged on 4 weeks of IV vancomycin until 03/27/2018. Readmitted in Mar 2018 due to SIRS from urinary tract infection vs infected sacral dec vs prostate abscess. Sacral decubitus ulcer was large with a thick slough, no drainage, left heel with fluctuance, right heel w eschar S/P bedside sacral debridement to bone. 03/24/2016 urine grew Pseudomonas MDR only sens to zosyn/meropenem, discharged on meropenem 1 g IV q8g total 21 days until 04/17/2018. Patient was readmitted on 06/13/2018 due to AMS and fever at 103 from [facility]. Patient is not able to provide a history he is a poor historian. In the ED, temp 103, HR 104, R 18, BP 138/78, O2 sat 100%. WBC 19K. Hg 5.4. Plat 621. UA wbc 46, moderate LE. AST 43. Alkphos 339. Lactate 1.6. Blood culture 06/13/2018 no growth so far. Urine culture 06/13/2018 neg. CXR neg. ROS: unable to obtain Past History Past Medical History: acute [place], arthritis, COPD, diabetes, hypertension, seizures Past Surgical History: Other (G Tube) Social history: single. denies: smoking, alcohol abuse, prescription drug abuse Family history: diabetes, hypertension Medications and Allergies Allergies Allergy/AdvReac Type Severity Reaction Status Date / Time tramadol Allergy Unknown Verified 03/23/18 17:14 Home Medications Medication Instructions Recorded Confirmed Last Taken Type amLODIPine [Norvasc] 10 mg PO DAILY 06/02/16 06/13/18 Unknown History levETIRAcetam [Keppra] 500 mg PO BID #60 07/23/17 06/13/18 Unknown Rx Multivit-Min/Iron Fum/Folic AC 1 each PO DAILY 03/24/18 06/13/18 Unknown History [Nwkdl-Eutupry-Phzwtomm Tablet] Atorvastatin Calcium [Lipitor] 40 mg PO HS 06/13/18 06/13/18 Unknown History Carvedilol [Coreg] 6.25 mg PO BID 06/13/18 06/13/18 Unknown History Active Meds: Active Medications Acetaminophen (Tylenol) 650 mg PO Q4H PRN PRN Reason: Pain MILD(1-3)/Fever >100.5/PRICE Albuterol (Proventil) 2.5 mg IH Q4HRT PRN PRN Reason: Shortness Of Breath Amlodipine Besylate (Norvasc) 10 mg PO DAILY [facility] Last Admin: 06/14/18 09:18 Dose: 10 mg Documented by: Atorvastatin Calcium (Lipitor) 40 mg PO HS [facility] Last Admin: 06/13/18 22:46 Dose: 40 mg Documented by: Dextrose/Sodium Chloride (D5/0.45ns) 1,000 mls @ 75 mls/hr IV DIRECT [facility] Last Admin: 06/14/18 13:45 Dose: 75 mls/hr Documented by: Levetiracetam (Keppra) 500 mg PO BID [facility] Last Admin: 06/14/18 09:18 Dose: 500 mg Documented by: Multivitamins/Minerals (Theragran-M Tab) 1 each PO QDAY [facility] Last Admin: 06/14/18 09:18 Dose: 1 each Documented by: Ondansetron HCl (Zofran) 4 mg IV Q8H PRN PRN Reason: Nausea And Vomiting Sodium Chloride (Sodium Chloride Flush Syringe 10 Ml) 10 ml IV BID [facility] Last Admin: 06/14/18 09:19 Dose: 10 ml Documented by: Sodium Chloride (Sodium Chloride Flush Syringe 10 Ml) 10 ml IV PRN PRN PRN Reason: LINE FLUSH Sodium Hypochlorite (Dakin's Half Strength) 1 applic TP BID [facility] Last Admin: 06/14/18 12:07 Dose: 1 gm Documented by: Physical Examination - Physical Exam Narrative exam: Constitutional: Alert, cooperative in no acute distress Head, Ears, Nose: Normocephalic, atraumatic. External ears, nose normal Eyes: Conjunctivae/corneas clear. No icterus. No ptosis. Neck: Supple, no meningeal signs Oral: no ulcers, no thrush Cardiovascular: RRR Respiratory: CTAbil GI: Soft, non-tender; bowel sounds normal. No peritoneal signs. +PEG Musculoskeletal: multiple decubiti * see wound care note Skin: No rash or abscess Hem/Lymphatic: No palpable cervical or supraclavicular nodes. No lymphangitis Psych: Mood ok. Affect normal Neurological: Awake, alert, confused, contracted legs. *Wound care note LEFT HEEL UNSTAGEABLE PRESSURE ULCER MEASURES 3.5X6X1. YELLOW SLOUGH NOTED TO WOUND BED. MODERATE AMOUNT OF SEROSANGUINEOUS DRAINAGE. NO ODOR. LEFT KNEE PRESSURE WOUND. MEASURES 4X1X0.2. SMALL AMOUNT OF SEROSANGUINEOUS DRAINAGE NOTED. LEFT MEDIAL THIGH UNSTAGEABLE PRESSURE ULCER MEASURES 3X2X0.2. WOUND IS NECROTIC. COVERED WITH YELLOW/BROWN SLOUGH. SMALL AMOUNT OF YELLOW DRAINAGE. RIGHT LATERAL ANKLE PRESSURE ULCER MEASURES 3X3X0.3. MODERATE AMOUNT OF SEROSANGUINEOUS DRAINAGE. NO ODOR. RIGHT LATERAL LEG PRESSURE ULCER MEASURES 6X2X0.3. SMALL AMOUNT OF SEROSANGUINEOUS DRAINAGE. NO ODOR. RIGHT MEDIAL LOWER LEG UNSTAGEABLE PRESSURE ULCER MEASURES 6.5X4.3X0.7. WOUND IS NECROTIC. MODERATE AMOUNT OF SEROSANGUINEOUS DRAINAGE NOTED. NO ODOR. RIGHT GREAT TOE ESCHAR. NO DRAINAGE NOTED. RIGHT HEEL UNSTAGEABLE PRESSURE ULCER MEASURES 2.5X4X1. MODERATE AMOUNT OF YELLOW SLOUGH COVERING WOUND BED. SMALL AMOUNT OF SEROSANGUINEOUS DRAINAGE NOTED. NO ODOR. LEFT HIP UNSTAGEABLE PRESSURE ULCER NOTED. MODERATE AMOUNT OF SEROSANGUINEOUS DRAINAGE NOTED. NO ODOR. WOUND MEASURES 7X8X2. CLEANSED WITH WOUND CLEANSER. LEFT BACK UNSTAGEABLE PRESSURE ULCER. COMPLETELY COVERED WITH YELLOW SLOUGH. WOUND MEASURES 4X3.8X0.2. SMALL AMOUNT OF YELLOW DRAINAGE. UNSTAGEABLE SACRAL PRESSURE ULCER MEASURES [id number]. THERE IS UNDERMINING FROM 12-3OCLOCK THAT PROBES TO A DEPTH OF 5CM. MODERATE AMOUNT OF SEROSANGUINEOUS DRAINAGE NOTED. NO ODOR. - Constitutional Vitals: Vital Signs Temp Pulse Resp BP Pulse Ox 98.7 F 86 18 136/72 98 06/14/18 08:13 06/14/18 08:13 06/14/18 08:13 06/14/18 08:13 06/14/18 08:13 Temperature -Last 24 Hours Temperature 98.7 F Temperature 97.5 F Temperature 98.7 F Results - Labs CBC & Chem 7: 06/13/18 14:02 06/13/18 14:02 Labs: Abnormal lab results 06/13/18 06/13/18 06/13/18 Range/Units 14:02 14:02 14:02 WBC 19.5 H (4.5-11.0) K/mm3 RBC 2.00 L (3.65-5.03) M/mm3 Hgb 5.4 L* (11.8-15.2) gm/dl Hct 16.7 L* (35.5-45.6) % MCH 27 L (28-32) pg RDW 16.7 H (13.2-15.2) % Plt Count 621 H (140-440) K/mm3 Lymph % (Auto) 8.2 L (13.4-35.0) % [place] # 1.4 H (0.0-0.8) K/mm3 Seg Neutrophils % 83.2 H (40.0-70.0) % Seg Neutrophils # 16.2 H (1.8-7.7) K/mm3 VBG pH 7.435 H (7.320-7.420) Potassium 5.4 H (3.6-5.0) mmol/L BUN 31 H (9-20) mg/dL Glucose 104 H (75-100) mg/dL AST 43 H (5-40) units/L Alkaline Phosphatase 339 H (35-129) units/L Albumin 2.6 L (3.9-5) g/dL Urine pH (5.0-7.0) Urine WBC (Auto) (0.0-6.0) /HPF Crossmatch 06/13/18 06/13/18 Range/Units 17:15 22:42 WBC (4.5-11.0) K/mm3 RBC (3.65-5.03) M/mm3 Hgb (11.8-15.2) gm/dl Hct (35.5-45.6) % MCH (28-32) pg RDW (13.2-15.2) % Plt Count (140-440) K/mm3 Lymph % (Auto) (13.4-35.0) % [place] # (0.0-0.8) K/mm3 Seg Neutrophils % (40.0-70.0) % Seg Neutrophils # (1.8-7.7) K/mm3 VBG pH (7.320-7.420) Potassium (3.6-5.0) mmol/L BUN (9-20) mg/dL Glucose (75-100) mg/dL AST (5-40) units/L Alkaline Phosphatase (35-129) units/L Albumin (3.9-5) g/dL Urine pH 8.0 H (5.0-7.0) Urine WBC (Auto) 46.0 H (0.0-6.0) /HPF Crossmatch See Detail Assessment and Plan Culture: Blood culture 06/13/2018 no growth so far. Urine culture 06/13/2018 neg. A/P: 67 y/[facility] male [facility] resident with history of stroke, dementia, CHF, COPD, diabetes, multiple chronic decubiti, previous MDR Pseudomonas UTI, previous prostate abscess and hypertension; readmitted on 06/13/2018 due to AMS and fever at 103: Sepsis: present on admission with fever, leukocytosis, tachycardia; etio. likely UTI +/- multiple infected necrotic decubiti Multiple infected necrotic decubi ulcers: mainly left medial thigh, right medialcalf and sacral [id number] UTI: previous Pseudomonas MDR only sens to zosyn/merren, treated with meropenem 1 g IV q8g total 21 days until 04/17/2018 Previous MRSA bacteremia: treated with 4 weeks of IV vancomycin until 03/27/2018. Plan: start meropenem and vancomycin for now wound care contact isolation f/u blood culture obtain wound culture surgical consult for necrotic wounds Dr Dillon is covering the weekend MD Chinmay [facility] M: [phone] O:[phone]
[2018-06-14] MEDS ORDERED: SIMPLE SYRUP FEEDTUBE PRN ×2 (14:24)
[2018-06-14] MEDS ORDERED: PANCREAZE DR 10,500 UNIT FEEDTUBE PRN (14:24)
[2018-06-14] MEDS ORDERED: SODIUM BICARBONATE FEEDTUBE PRN (14:24)
[2018-06-14] MEDS ORDERED: VANCOMYCIN 1,750 MG in NACL 0.9% 500 ML 500 ML IV ONE (17:00)
[2018-06-14] MEDS ORDERED: .VANCOMYCIN VIAL 1,000 MG in NACL 0.9% 100 ML IV SCH (17:00)
[2018-06-14] MEDS: MERREM 1,000 MG in NACL 0.9% 100 ML IV SCH ×2 (17:34→21:54)
[2018-06-14] MEDS ORDERED: NACL 0.9% 500 ML 500 ML ONE (19:08)
[2018-06-15 00:50] LABS: Hematocrit 28.8 % (35.5-45.6); Hemoglobin 9.3 gm/dl (11.8-15.2)
[2018-06-15] MEDS: DAKIN'S HALF STRENGTH TP SCH ×4 (03:32→22:15)
[2018-06-15] MEDS: MERREM 1,000 MG in NACL 0.9% 100 ML IV SCH ×3 (05:00→22:14)
[2018-06-15 05:25] LABS: Hemoglobin 9.4 gm/dl (11.8-15.2); Mean Corpuscular HGB Conc 32 % (32-34); Mean Corpuscular Volume 84 fl (84-94); Platelet Count 407 K/mm3 (140-440); Red Blood Count 3.46 M/mm3 (3.65-5.03); Red Cell Distribution Width 15.9 % (13.2-15.2)
[2018-06-15 05:46] LABS: BUN/Creatinine Ratio 29; Blood Urea Nitrogen 20 mg/dL (9-20); Calcium 8.7 mg/dL (8.4-10.2); Hemolysis Index 0
[2018-06-15] MEDS: VANCOMYCIN 1,250 MG in NACL 0.9% 250ML 250 ML IV SCH ×2 (06:03→17:18)
[2018-06-15] MEDS: THERAGRAN-M Tab PO SCH (10:27)
[2018-06-15] MEDS: SODIUM CHLORIDE FLUSH SYRINGE 10 ML IV SCH ×2 (10:27→22:15)
[2018-06-15] MEDS: KEPPRA PO SCH ×2 (10:27→22:14)
[2018-06-15] MEDS: NORVASC PO SCH (10:27)
--- NOTE | 2018-06-15 11:33 | Progress Note ---
Assessment and Plan Assessment and plan: 67 YO Male Residential Facility Resident as [facility] with HTN, CVA, Obstructive Uropathy, Contracture, Decubitus Ulcers, CA, DM, OA, Seizure Disorder, COPD, Dementia, BPH presents to ED for evaluation. To the ED with complaints of fever. Patient is alert and oriented to person place but not to time. Vision was noted to have a temperature 103. EMS notified and patient transported to [facility] for further care and evaluation. Pt seen and evaluated in ED and found to have sepsis, Encephalopathy, and symptomatic anemia. Pt admitted to DIANA unit. No further history obtainable. The patient was discharged from the hospital following treatments for acute UTI with known history of multi drug resistant organisms in the past. Sepsis Current Visit: Yes Status: Acute Qualifiers: Sepsis type: sepsis due to unspecified organism Qualified Code(s): A41.9 - Sepsis, unspecified organism Plan to address problem: IV antibiotic therapy, IVF resuscitation, monitor uop q shift, serial lactic acid, chest x ray, urinalysis, blood cultures. ID consult- VANC AND MERREM Prior hx of MDR HTN (hypertension) Current Visit: Yes Status: Acute Qualifiers: Hypertension type: essential hypertension Qualified Code(s): I10 - Esse ntial (primary) hypertension Plan to address problem: monitor bp q shift, continue medical management Diabetes Current Visit: Yes Status: Acute Plan to address problem: ADA diet, insulin, accu check Severe Anemia Current Visit: Yes Status: Acute Plan to address problem: PRBC Transfusion, repeat cbc. Improved. avoid NSAIDS AND ANTIPLATELETS. Likely Hemolysis- elevated haptoglobin Outpatient referral to Hematology on discharge. NO CLEAR BLEEDING SOURCE Multiple pressure ulcers at different stages Wound care consult Toxic Metabolic Encephalopathy Current Visit: Yes Status: Acute Plan to address problem: supportive care, thyroid panel, seizure precautions, aspiration precautions Although he is able to assist with diet. +MRSA SCREEN ISOLATION PRECAUTIONS DVT prophylaxis Current Visit: Yes Status: Acute Plan to address problem: SCD to BLE while in bed. POOR PROGNOSIS. History Interval history: Patient is seen today for: Sepsis Seen and examined at bedside; 24hour events reviewed; nursing staff ; Awake and responsive. no adverse overnight events reported to me; Denies any chest pain, nausea, vomiting, diarrhea or admission with multiple pressure ulcers. Chronically ill appearing. residential resident No fever noted blood pressure controlled Hospitalist Physical - Physical exam Narrative exam: General appearance: Present: Resting comfortably in no acute distress - EENT Eyes: Present: miosis - Neck Neck: Present: supple, normal ROM - Respiratory Respiratory effort: normal Respiratory: bilateral: CTA - Cardiovascular Heart Sounds: Present: S1 & S2. Absent: rub, click - Extremities Extremities: abnormal (contracture, pressure sores bilaterally) Peripheral Pulses: within normal limits - Abdominal General gastrointestinal: Present: soft, non-tender, non-distended, normal bowel sounds Male genitourinary: Present: normal - Integumentary Integumentary: Present: clear, dry, decreased turgor - Musculoskeletal Musculoskeletal: generalized weakness - Psychiatric Psychiatric: no appropriate mood/affect, no intact judgment & insight, no memory intact - Neurologic Neurologic: focal deficits, no moves all extremities, no gait normal - Constitutional Vitals: Temp Pulse Resp BP Pulse Ox 98.6 F 75 18 129/59 96 06/15/18 07:31 06/15/18 07:31 06/15/18 07:31 06/15/18 07:31 06/15/18 07:57 General appearance: Present: mild distress Results - Labs CBC & Chem 7: 06/15/18 04:13 06/15/18 04:13 Labs: Laboratory Last Values WBC 9.0 K/mm3 (4.5-11.0) 06/15/18 04:13 RBC 3.46 M/mm3 (3.65-5.03) L 06/15/18 04:13 Hgb 9.4 gm/dl (11.8-15.2) L 06/15/18 04:13 Hct 29.0 % (35.5-45.6) L 06/15/18 04:13 MCV 84 fl (84-94) 06/15/18 04:13 MCH 27 pg (28-32) L 06/15/18 04:13 MCHC 32 % (32-34) 06/15/18 04:13 RDW 15.9 % (13.2-15.2) H 06/15/18 04:13 Plt Count 407 K/mm3 (140-440) 06/15/18 04:13 Lymph % (Auto) 8.2 % (13.4-35.0) L 06/13/18 14:02 [place] % (Auto) 7.0 % (0.0-7.3) 06/13/18 14:02 Eos % (Auto) 1.0 % (0.0-4.3) 06/13/18 14:02 Baso % (Auto) 0.6 % (0.0-1.8) 06/13/18 14:02 Lymph # 1.6 K/mm3 (1.2-5.4) 06/13/18 14:02 [place] # 1.4 K/mm3 (0.0-0.8) H 06/13/18 14:02 Eos # 0.2 K/mm3 (0.0-0.4) 06/13/18 14:02 Baso # 0.1 K/mm3 (0.0-0.1) 06/13/18 14:02 Seg Neutrophils % 83.2 % (40.0-70.0) H 06/13/18 14:02 Seg Neutrophils # 16.2 K/mm3 (1.8-7.7) H 06/13/18 14:02 VBG pH 7.435 (7.320-7.420) H 06/13/18 14:02 Sodium 142 mmol/L (137-145) 06/15/18 04:13 Potassium 4.0 mmol/L (3.6-5.0) D 06/15/18 04:13 Chloride 107.9 mmol/L (98-107) H 06/15/18 04:13 Carbon Dioxide 21 mmol/L (22-30) L 06/15/18 04:13 Anion Gap 17 mmol/L 06/15/18 04:13 BUN 20 mg/dL (9-20) 06/15/18 04:13 Creatinine 0.7 mg/dL (0.8-1.5) L 06/15/18 04:13 Estimated GFR > 60 ml/min 06/15/18 04:13 BUN/Creatinine Ratio 29 % 06/15/18 04:13 Glucose 71 mg/dL (75-100) L 06/15/18 04:13 POC Glucose 89 (70-105) 06/15/18 06:38 Lactic Acid 0.80 mmol/L (0.7-2.0) 06/13/18 23:30 Calcium 8.7 mg/dL (8.4-10.2) 06/15/18 04:13 Magnesium 2.40 mg/dL (1.7-2.3) H 06/14/18 17:36 Total Bilirubin 0.30 mg/dL (0.1-1.2) 06/13/18 14:02 AST 43 units/L (5-40) H 06/13/18 14:02 ALT 44 units/L (7-56) 06/13/18 14:02 Alkaline Phosphatase 339 units/L (35-129) H 06/13/18 14:02 C-Reactive Protein 13.50 mg/dL (0.00-1.30) H 06/14/18 17:36 Total Protein 8.1 g/dL (6.3-8.2) 06/13/18 14:02 Albumin 2.6 g/dL (3.9-5) L 06/13/18 14:02 Albumin/Globulin Ratio 0.5 % 06/13/18 14:02 Urine Color Yellow (Yellow) 06/13/18 17:15 Urine Turbidity Clear (Clear) 06/13/18 17:15 Urine pH 8.0 (5.0-7.0) H 06/13/18 17:15 Ur Specific [place] 1.013 (1.003-1.030) 06/13/18 17:15 Urine Protein 30 mg/dl mg/dL (Negative) 06/13/18 17:15 Urine Glucose (UA) Neg mg/dL (Negative) 06/13/18 17:15 Urine Ketones Neg mg/dL (Negative) 06/13/18 17:15 Urine Blood Sm (Negative) 06/13/18 17:15 Urine Nitrite Neg (Negative) 06/13/18 17:15 Urine Bilirubin Neg (Negative) 06/13/18 17:15 Urine Urobilinogen < 2.0 mg/dL (<2.0) 06/13/18 17:15 Ur Leukocyte Esterase Mod (Negative) 06/13/18 17:15 Urine WBC (Auto) 46.0 /HPF (0.0-6.0) H 06/13/18 17:15 Urine RBC (Auto) 12.0 /HPF (0.0-6.0) 06/13/18 17:15 U Epithel Cells (Auto) < 1.0 /HPF (0-13.0) 06/13/18 17:15 Blood Type O POSITIVE 06/13/18 22:42 Antibody Screen Negative 06/13/18 22:42 Crossmatch See Detail 06/13/18 22:42 Nutrition/Malnutrition Assess - Dietary Evaluation Nutrition/Malnutrition Findings: Nutrition Notes Start: 06/14/18 14:10 Freq: Status: Active Protocol: Document 06/14/18 14:10 RM (Rec: 06/14/18 14:23 RM [id number]) Nutrition Notes Need for Assessment generated 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 Burn Absent Trauma Absent #1 Nutrition Diagnosis Inadequate oral intake Etiology CVA As Evidenced by Signs and Symptoms pt requiring enteral nutrition to meet nutritional needs Is patient on ventilator? No Is Patient Ambulatory and/or Out of Bed No REE-([facility]-confined to bed) 2037.260 Calculation Used for Recommendations [facility] Additional Notes Protein Needs: 106-115g (1.2-1 .3g/kg) Fluid Needs: 1 ml/kcal Nutrition Intervention Nutrition Support: Nepro at 45 ml/hr. Water flush of 200 mls q 4 hrs . Kcal 1,944 Protein (gm) 87 Fluid (mL) 785 Goal #1 TF tolerance Goal #2 Meet at least 75% of calorie and protein needs via TF Anticipated Discharge Needs: TF Follow-Up By: 06/17/18 Additional Comments Follow for new TF, K lab
[2018-06-15] MEDS: D5/0.45NS 1,000 ML IV SCH (14:18)
[2018-06-16] MEDS: VANCOMYCIN 1,250 MG in NACL 0.9% 250ML 250 ML IV SCH ×2 (05:08→15:59)
[2018-06-16] MEDS ORDERED: TYLENOL FEEDTUBE PRN (06:04)
[2018-06-16] MEDS ORDERED: TYLENOL PO PRN (07:00)
[2018-06-16] MEDS: MERREM 1,000 MG in NACL 0.9% 100 ML IV SCH ×3 (08:43→21:13)
--- NOTE | 2018-06-16 08:45 | Progress Note ---
Assessment and Plan Assessment and plan: 67 YO Male Jail Facility Resident as [facility] with HTN, CVA, Obstructive Uropathy, Contracture, Decubitus Ulcers, [place], DM, OA, Seizure Disorder, COPD, Dementia, BPH presents to ED for evaluation. To the ED with complaints of fever. Patient is alert and oriented to person place but not to time. Vision was noted to have a temperature 103. EMS notified and patient transported to [facility] for further care and evaluation. Pt seen and evaluated in ED and found to have sepsis, Encephalopathy, and symptomatic anemia. Pt admitted to DIANA unit. No further history obtainable. The patient was discharged from the hospital following treatments for acute UTI with known history of multi drug resistant organisms in the past. Sepsis IV antibiotic therapy, IVF resuscitation, monitor uop q shift, Blood culture with no growth so far ID consult- VANC AND MERREM Urine culture- Pseudomonas- prior hx of MDR NOTED HTN (hypertension) Current Visit: Yes Status: Acute Qualifiers: Hypertension type: essential hypertension Qualified Code(s): I10 - Essential (primary) hypertension Plan to address problem: monitor bp q shift, continue medical management Diabetes Mellitus Current Visit: Yes Status: Acute Plan to address problem: ADA diet, insulin, accu check Severe Anemia Current Visit: Yes Status: Acute Plan to address problem: PRBC Transfusion, repeat cbc. Improved. avoid NSAIDS AND ANTIPLATELETS. Likely Hemolysis- elevated haptoglobin Outpatient referral to Hematology on discharge. NO CLEAR BLEEDING SOURCE Multiple pressure ulcers at different stages Wound care consult Toxic Metabolic Encephalopathy Current Visit: Yes Status: Acute Plan to address problem: Supportive care, thyroid panel, seizure precautions, aspiration precautions Although he is able to assist with diet. +MRSA SCREEN ISOLATION PRECAUTIONS DVT prophylaxis Current Visit: Yes Status: Acute Plan to address problem: SCD to BLE while in bed. POOR PROGNOSIS. Anticipate discharge back to facility in AM. History Interval history: Patient is seen today for: Sepsis Seen and examined at bedside; 24hour events reviewed; nursing staff ; Awake and responsive. no adverse overnight events reported to me; Denies any chest pain, nausea, vomiting, diarrhea or admission with multiple pressure ulcers. Chronically ill appearing. intermediate resident No fever noted blood pressure controlled Hospitalist Physical - Physical exam Narrative exam: General appearance: Present: Resting comfortably in no acute distress, CHRONIC CONTRACTURE - EENT Eyes: Present: miosis - Neck Neck: Present: supple, normal ROM - Respiratory Respiratory effort: normal Respiratory: bilateral: CTA - Cardiovascular Heart Sounds: Present: S1 & S2. Absent: rub, click Dependent Edema generalized - Extremities Extremities: abnormal (contracture, pressure sores bilaterally) Peripheral Pulses: within normal limits - Abdominal General gastrointestinal: Present: soft, non-tender, non-distended, normal bowel sounds Male genitourinary: Present: normal - Integumentary Integumentary: Present: clear, dry, decreased turgor - Musculoskeletal Musculoskeletal: generalized weakness - Psychiatric Psychiatric: no appropriate mood/affect, no intact judgment & insight, no memory intact - Neurologic Neurologic: focal deficits, no moves all extremities, no gait normal - Constitutional Vitals: Temp Pulse Resp BP Pulse Ox 97.8 F 72 18 142/73 100 06/16/18 07:25 06/16/18 07:25 06/16/18 07:25 06/16/18 07:25 06/16/18 07:25 General appearance: Present: mild distress Results - Labs CBC & Chem 7: 06/15/18 04:13 06/15/18 04:13 Labs: Laboratory Last Values WBC 9.0 K/mm3 (4.5-11.0) 06/15/18 04:13 RBC 3.46 M/mm3 (3.65-5.03) L 06/15/18 04:13 Hgb 9.4 gm/dl (11.8-15.2) L 06/15/18 04:13 Hct 29.0 % (35.5-45.6) L 06/15/18 04:13 MCV 84 fl (84-94) 06/15/18 04:13 MCH 27 pg (28-32) L 06/15/18 04:13 MCHC 32 % (32-34) 06/15/18 04:13 RDW 15.9 % (13.2-15.2) H 06/15/18 04:13 Plt Count 407 K/mm3 (140-440) 06/15/18 04:13 Lymph % (Auto) 8.2 % (13.4-35.0) L 06/13/18 14:02 [place] % (Auto) 7.0 % (0.0-7.3) 06/13/18 14:02 Eos % (Auto) 1.0 % (0.0-4.3) 06/13/18 14:02 Baso % (Auto) 0.6 % (0.0-1.8) 06/13/18 14:02 Lymph # 1.6 K/mm3 (1.2-5.4) 06/13/18 14:02 [place] # 1.4 K/mm3 (0.0-0.8) H 06/13/18 14:02 Eos # 0.2 K/mm3 (0.0-0.4) 06/13/18 14:02 Baso # 0.1 K/mm3 (0.0-0.1) 06/13/18 14:02 Seg Neutrophils % 83.2 % (40.0-70.0) H 06/13/18 14:02 Seg Neutrophils # 16.2 K/mm3 (1.8-7.7) H 06/13/18 14:02 VBG pH 7.435 (7.320-7.420) H 06/13/18 14:02 Sodium 142 mmol/L (137-145) 06/15/18 04:13 Potassium 4.0 mmol/L (3.6-5.0) D 06/15/18 04:13 Chloride 107.9 mmol/L (98-107) H 06/15/18 04:13 Carbon Dioxide 21 mmol/L (22-30) L 06/15/18 04:13 Anion Gap 17 mmol/L 06/15/18 04:13 BUN 20 mg/dL (9-20) 06/15/18 04:13 Creatinine 0.7 mg/dL (0.8-1.5) L 06/15/18 04:13 Estimated GFR > 60 ml/min 06/15/18 04:13 BUN/Creatinine Ratio 29 % 06/15/18 04:13 Glucose 71 mg/dL (75-100) L 06/15/18 04:13 POC Glucose 119 (70-105) H 06/16/18 06:11 Lactic Acid 0.80 mmol/L (0.7-2.0) 06/13/18 23:30 Calcium 8.7 mg/dL (8.4-10.2) 06/15/18 04:13 Magnesium 2.40 mg/dL (1.7-2.3) H 06/14/18 17:36 Total Bilirubin 0.30 mg/dL (0.1-1.2) 06/13/18 14:02 AST 43 units/L (5-40) H 06/13/18 14:02 ALT 44 units/L (7-56) 06/13/18 14:02 Alkaline Phosphatase 339 units/L (35-129) H 06/13/18 14:02 C-Reactive Protein 13.50 mg/dL (0.00-1.30) H 06/14/18 17:36 Total Protein 8.1 g/dL (6.3-8.2) 06/13/18 14:02 Albumin 2.6 g/dL (3.9-5) L 06/13/18 14:02 Albumin/Globulin Ratio 0.5 % 06/13/18 14:02 Urine Color Yellow (Yellow) 06/13/18 17:15 Urine Turbidity Clear (Clear) 06/13/18 17:15 Urine pH 8.0 (5.0-7.0) H 06/13/18 17:15 Ur Specific [place] 1.013 (1.003-1.030) 06/13/18 17:15 Urine Protein 30 mg/dl mg/dL (Negative) 06/13/18 17:15 Urine Glucose (UA) Neg mg/dL (Negative) 06/13/18 17:15 Urine Ketones Neg mg/dL (Negative) 06/13/18 17:15 Urine Blood Sm (Negative) 06/13/18 17:15 Urine Nitrite Neg (Negative) 06/13/18 17:15 Urine Bilirubin Neg (Negative) 06/13/18 17:15 Urine Urobilinogen < 2.0 mg/dL (<2.0) 06/13/18 17:15 Ur Leukocyte Esterase Mod (Negative) 06/13/18 17:15 Urine WBC (Auto) 46.0 /HPF (0.0-6.0) H 06/13/18 17:15 Urine RBC (Auto) 12.0 /HPF (0.0-6.0) 06/13/18 17:15 U Epithel Cells (Auto) < 1.0 /HPF (0-13.0) 06/13/18 17:15 Blood Type O POSITIVE 06/13/18 22:42 Antibody Screen Negative 06/13/18 22:42 Crossmatch See Detail 06/13/18 22:42 Nutrition/Malnutrition Assess - Dietary Evaluation Nutrition/Malnutrition Findings: Nutrition Notes Start: 06/14/18 14:10 Freq: Status: Active Protocol: Document 06/14/18 14:10 RM (Rec: 06/14/18 14:23 RM [id number]) Nutrition Notes Need for Assessment generated from: 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 Burn Absent Trauma Absent #1 Nutrition Diagnosis Inadequate oral intake Etiology CVA As Evidenced by Signs and Symptoms pt requiring enteral nutrition to meet nutritional needs Is patient on ventilator? No Is Patient Ambulatory and/or Out of Bed No REE-([facility]-confined to bed) 2037.260 Calculation Used for Recommendations [facility] Additional Notes Protein Needs: 106-115g (1.2-1 .3g/kg) Fluid Needs: 1 ml/kcal Nutrition Intervention Nutrition Support: Nepro at 45 ml/hr. Water flush of 200 mls q 4 hrs . Kcal 1,944 Protein (gm) 87 Fluid (mL) 785 Goal #1 TF tolerance Goal #2 Meet at least 75% of calorie and protein needs via TF Anticipated Discharge Needs: TF Follow-Up By: 06/17/18 Additional Comments Follow for new TF, K lab
[2018-06-16] MEDS: KEPPRA FEEDTUBE SCH ×2 (08:59→21:13)
[2018-06-16] MEDS: DAKIN'S HALF STRENGTH TP SCH ×2 (08:59→21:14)
[2018-06-16] MEDS: Centrum Liq PO SCH (08:59)
[2018-06-16] MEDS: SODIUM CHLORIDE FLUSH SYRINGE 10 ML IV SCH ×2 (09:00→21:14)
[2018-06-16] MEDS: NORVASC FEEDTUBE SCH (09:00)
[2018-06-16] MEDS ORDERED: Centrum Liq FEEDTUBE SCH (10:00)
[2018-06-16] MEDS ORDERED: Centrum Liq PO SCH (10:00)
[2018-06-16] MEDS ORDERED: KEPPRA PO SCH (10:00)
[2018-06-16] MEDS: D5/0.45NS 1,000 ML IV SCH (13:06)
--- NOTE | 2018-06-16 13:33 | Progress Note ---
Assessment and Plan Culture: Blood culture 06/13/2018 no growth so far. Urine culture 06/13/2018: multidrug resistant pseudomonas, resistant to Aztreonam and fluoroquinolones A/P: 67 y/o male snf resident with history of stroke, dementia, CHF, COPD, diabetes, multiple chronic decubiti, previous MDR Pseudomonas UTI, previous prostate abscess and hypertension; readmitted on 06/13/2018 due to AMS and fever at 103: Sepsis: Resolved ; etio. likely UTI +/- multiple infected necrotic decubiti Multiple infected necrotic decubi ulcers: mainly left medial thigh, right medialcalf and sacral [id number] UTI: previous Pseudomonas MDR only sens to zosyn/merren, treated with meropenem 1 g IV q8g total 21 days until 04/17/2018 Previous MRSA bacteremia: treated with 4 weeks of IV vancomycin until 03/27/2018. Plan: continue meropenem and vancomycin wound care contact isolation f/u blood culture f/u wound culture surgical consult for necrotic wounds [facility] M: [phone] O:[phone] Subjective Date of service: 06/16/18 Interval history: Patient seen and examined, Patient is a poor historian, but able to follow simple commands. No family at bedside. Objective - Exam Narrative Exam: Constitutional: Alert, cooperative in no acute distress Head, Ears, Nose: Normocephalic, atraumatic. External ears, nose normal Eyes: Conjunctivae/corneas clear. No icterus. No ptosis. Neck: Supple, no meningeal signs Oral: no ulcers, no thrush Cardiovascular: RRR Respiratory: CTAbil GI: Soft, non-tender; bowel sounds normal. No peritoneal signs. +PEG Musculoskeletal: multiple decubiti * see wound care note Skin: No rash or abscess Hem/Lymphatic: No palpable cervical or supraclavicular nodes. No lymphangitis Psych: Mood ok. Affect normal Neurological: Awake, alert, contracted legs, able to follow simple commands. *Wound care note LEFT HEEL UNSTAGEABLE PRESSURE ULCER MEASURES 3.5X6X1. YELLOW SLOUGH NOTED TO WOUND BED. MODERATE AMOUNT OF SEROSANGUINEOUS DRAINAGE. NO ODOR. LEFT KNEE PRESSURE WOUND. MEASURES 4X1X0.2. SMALL AMOUNT OF SEROSANGUINEOUS DRAINAGE NOTED. LEFT MEDIAL THIGH UNSTAGEABLE PRESSURE ULCER MEASURES 3X2X0.2. WOUND IS NECROTIC. COVERED WITH YELLOW/BROWN SLOUGH. SMALL AMOUNT OF YELLOW DRAINAGE. RIGHT LATERAL ANKLE PRESSURE ULCER MEASURES 3X3X0.3. MODERATE AMOUNT OF SEROSANGUINEOUS DRAINAGE. NO ODOR. RIGHT LATERAL LEG PRESSURE ULCER MEASURES 6X2X0.3. SMALL AMOUNT OF SEROSANGUINEOUS DRAINAGE. NO ODOR. RIGHT MEDIAL LOWER LEG UNSTAGEABLE PRESSURE ULCER MEASURES 6.5X4.3X0.7. WOUND IS NECROTIC. MODERATE AMOUNT OF SEROSANGUINEOUS DRAINAGE NOTED. NO ODOR. RIGHT GREAT TOE ESCHAR. NO DRAINAGE NOTED. RIGHT HEEL UNSTAGEABLE PRESSURE ULCER MEASURES 2.5X4X1. MODERATE AMOUNT OF YELLOW SLOUGH COVERING WOUND BED. SMALL AMOUNT OF SEROSANGUINEOUS DRAINAGE NOTED. NO ODOR. LEFT HIP UNSTAGEABLE PRESSURE ULCER NOTED. MODERATE AMOUNT OF SEROSANGUINEOUS DRAINAGE NOTED. NO ODOR. WOUND MEASURES 7X8X2. CLEANSED WITH WOUND CLEANSER. LEFT BACK UNSTAGEABLE PRESSURE ULCER. COMPLETELY COVERED WITH YELLOW SLOUGH. WOUND MEASURES 4X3.8X0.2. SMALL AMOUNT OF YELLOW DRAINAGE. UNSTAGEABLE SACRAL PRESSURE ULCER MEASURES [id number]. THERE IS UNDERMINING FROM 12-3OCLOCK THAT PROBES TO A DEPTH OF 5CM. MODERATE AMOUNT OF SEROSANGUINEOUS DRAINAGE NOTED. NO ODOR. - Constitutional Vitals: Vital Signs Temp Pulse Resp BP Pulse Ox 97.8 F 50 L 18 132/65 100 06/16/18 07:25 06/16/18 10:00 06/16/18 07:25 06/16/18 09:00 06/16/18 10:00 Temperature -Last 24 Hours Temperature 97.8 F Temperature 99.0 F Temperature 98.8 F Temperature 99.2 F - Labs CBC & Chem 7: 06/15/18 04:13 06/15/18 04:13 Labs: Abnormal lab results 06/15/18 06/16/18 Range/Units 17:38 06:11 POC Glucose 110 H 119 H (70-105)
[2018-06-17] MEDS: VANCOMYCIN 1,250 MG in NACL 0.9% 250ML 250 ML IV SCH ×2 (04:37→17:40)
[2018-06-17] MEDS: MERREM 1,000 MG in NACL 0.9% 100 ML IV SCH ×2 (04:59→14:38)
[2018-06-17 06:28] LABS: Hematocrit 28.3 % (35.5-45.6); Hemoglobin 9.2 gm/dl (11.8-15.2); Mean Corpuscular HGB Conc 33 % (32-34); Mean Corpuscular Volume 83 fl (84-94); Platelet Count 424 K/mm3 (140-440); Red Blood Count 3.41 M/mm3 (3.65-5.03); Red Cell Distribution Width 15.8 % (13.2-15.2)
[2018-06-17 06:52] LABS: BUN/Creatinine Ratio 33; Blood Urea Nitrogen 13 mg/dL (9-20); Calcium 8.6 mg/dL (8.4-10.2); Hemolysis Index 3
[2018-06-17] MEDS: NORVASC FEEDTUBE SCH (11:04)
[2018-06-17] MEDS: KEPPRA FEEDTUBE SCH ×2 (11:05→21:36)
[2018-06-17] MEDS: Centrum Liq PO SCH (11:05)
[2018-06-17] MEDS: D5/0.45NS 1,000 ML IV SCH (11:06)
[2018-06-17] MEDS: SODIUM CHLORIDE FLUSH SYRINGE 10 ML IV SCH ×2 (11:12→21:36)
--- NOTE | 2018-06-17 12:52 | Progress Note ---
Assessment and Plan Assessment and plan: 67 YO Male Intermediate Facility Resident as [facility] with HTN, CVA, Obstructive Uropathy, Contracture, Decubitus Ulcers, NC, DM, OA, Seizure Disorder, COPD, Dementia, BPH presents to ED for evaluation. To the ED with complaints of fever. Patient is alert and oriented to person place but not to time. Vision was noted to have a temperature 103. EMS notified and patient transported to [facility] for further care and evaluation. Pt seen and evaluated in ED and found to have sepsis, Encephalopathy, and symptomatic anemia. Pt admitted to DIANA unit. No further history obtainable. The patient was discharged from the hospital following treatments for acute UTI with known history of multi drug resistant organisms in the past. Sepsis IV antibiotic therapy, IVF resuscitation, monitor uop q shift, Blood culture with no growth so far ID consult- VANC AND MERREM- ANTIBIOTICS TO BE ADJUSTED TODAY PER ID Urine culture- Pseudomonas- prior hx of MDR NOTED HTN (hypertension) Current Visit: Yes Status: Acute Qualifiers: Hypertension type: essential hypertension Qualified Code(s): I10 - Essential (primary) hypertension Plan to address problem: monitor bp q shift, continue medical management Diabetes Mellitus Current Visit: Yes Status: Acute Plan to address problem: ADA diet, insulin, accu check Severe Anemia Current Visit: Yes Status: Acute Plan to address problem: PRBC Transfusion, repeat cbc. Improved. avoid NSAIDS AND ANTIPLATELETS. Likely Hemolysis- elevated haptoglobin Outpatient referral to Hematology on discharge. NO CLEAR BLEEDING SOURCE Multiple pressure ulcers at different stages Wound care consult see wound care note Toxic Metabolic Encephalopathy Current Visit: Yes Status: Acute Plan to address problem: Supportive care, thyroid panel, seizure precautions, aspiration precautions Although he is able to assist with diet. +MRSA SCREEN ISOLATION PRECAUTIONS DVT prophylaxis Current Visit: Yes Status: Acute Plan to address problem: SCD to BLE while in bed. POOR PROGNOSIS. Discussed extensively with the patients daughter Angela. She is agreeable to palliative care on discharge but not hospice at this time due to patients wishes. History Interval history: Patient is seen today for: Sepsis Seen and examined at bedside; 24hour events reviewed; nursing staff ; Awake and responsive. no adverse overnight events reported to me; Denies any chest pain, nausea, vomiting, diarrhea or admission with multiple pressure ulcers. Chronically ill appearing. snf resident No fever noted blood pressure controlled Hospitalist Physical - Physical exam Narrative exam: General appearance: Present: Resting comfortably in no acute distress, CHRONIC CONTRACTURE - EENT Eyes: Present: miosis - Neck Neck: Present: supple, normal ROM - Respiratory Respiratory effort: normal Respiratory: bilateral: CTA - Cardiovascular Heart Sounds: Present: S1 & S2. Absent: rub, click Dependent Edema generalized - Extremities Extremities: abnormal (contracture, pressure sores bilaterally) Peripheral Pulses: within normal limits - Abdominal General gastrointestinal: Present: soft, non-tender, non-distended, normal bowel sounds Male genitourinary: Present: normal - Integumentary Integumentary: Present: clear, dry, decreased turgor - Musculoskeletal Musculoskeletal: generalized weakness - Psychiatric Psychiatric: no appropriate mood/affect, no intact judgment & insight, no memory intact - Neurologic Neurologic: focal deficits, no moves all extremities, no gait normal - Constitutional Vitals: Temp Pulse Resp BP Pulse Ox 99.5 F 84 20 154/72 100 06/17/18 08:37 06/17/18 11:04 06/17/18 08:37 06/17/18 11:04 06/17/18 09:18 General appearance: Present: mild distress Results - Labs CBC & Chem 7: 06/17/18 05:43 06/17/18 05:43 Labs: Laboratory Last Values WBC 10.1 K/mm3 (4.5-11.0) 06/17/18 05:43 RBC 3.41 M/mm3 (3.65-5.03) L 06/17/18 05:43 Hgb 9.2 gm/dl (11.8-15.2) L 06/17/18 05:43 Hct 28.3 % (35.5-45.6) L 06/17/18 05:43 MCV 83 fl (84-94) L 06/17/18 05:43 MCH 27 pg (28-32) L 06/17/18 05:43 MCHC 33 % (32-34) 06/17/18 05:43 RDW 15.8 % (13.2-15.2) H 06/17/18 05:43 Plt Count 424 K/mm3 (140-440) 06/17/18 05:43 Lymph % (Auto) 8.2 % (13.4-35.0) L 06/13/18 14:02 [place] % (Auto) 7.0 % (0.0-7.3) 06/13/18 14:02 Eos % (Auto) 1.0 % (0.0-4.3) 06/13/18 14:02 Baso % (Auto) 0.6 % (0.0-1.8) 06/13/18 14:02 Lymph # 1.6 K/mm3 (1.2-5.4) 06/13/18 14:02 [place] # 1.4 K/mm3 (0.0-0.8) H 06/13/18 14:02 Eos # 0.2 K/mm3 (0.0-0.4) 06/13/18 14:02 Baso # 0.1 K/mm3 (0.0-0.1) 06/13/18 14:02 Seg Neutrophils % 83.2 % (40.0-70.0) H 06/13/18 14:02 Seg Neutrophils # 16.2 K/mm3 (1.8-7.7) H 06/13/18 14:02 VBG pH 7.435 (7.320-7.420) H 06/13/18 14:02 Sodium 136 mmol/L (137-145) L 06/17/18 05:43 Potassium 3.8 mmol/L (3.6-5.0) 06/17/18 05:43 Chloride 107.5 mmol/L (98-107) H 06/17/18 05:43 Carbon Dioxide 20 mmol/L (22-30) L 06/17/18 05:43 Anion Gap 12 mmol/L 06/17/18 05:43 BUN 13 mg/dL (9-20) 06/17/18 05:43 Creatinine 0.4 mg/dL (0.8-1.5) L 06/17/18 05:43 Estimated GFR > 60 ml/min 06/17/18 05:43 BUN/Creatinine Ratio 33 % 06/17/18 05:43 Glucose 106 mg/dL (75-100) H 06/17/18 05:43 POC Glucose 95 (70-105) 06/17/18 05:52 Lactic Acid 0.80 mmol/L (0.7-2.0) 06/13/18 23:30 Calcium 8.6 mg/dL (8.4-10.2) 06/17/18 05:43 Magnesium 2.40 mg/dL (1.7-2.3) H 06/14/18 17:36 Total Bilirubin 0.30 mg/dL (0.1-1.2) 06/13/18 14:02 AST 43 units/L (5-40) H 06/13/18 14:02 ALT 44 units/L (7-56) 06/13/18 14:02 Alkaline Phosphatase 339 units/L (35-129) H 06/13/18 14:02 C-Reactive Protein 13.50 mg/dL (0.00-1.30) H 06/14/18 17:36 Total Protein 8.1 g/dL (6.3-8.2) 06/13/18 14:02 Albumin 2.6 g/dL (3.9-5) L 06/13/18 14:02 Albumin/Globulin Ratio 0.5 % 06/13/18 14:02 Urine Color Yellow (Yellow) 06/13/18 17:15 Urine Turbidity Clear (Clear) 06/13/18 17:15 Urine pH 8.0 (5.0-7.0) H 06/13/18 17:15 Ur Specific [place] 1.013 (1.003-1.030) 06/13/18 17:15 Urine Protein 30 mg/dl mg/dL (Negative) 06/13/18 17:15 Urine Glucose (UA) Neg mg/dL (Negative) 06/13/18 17:15 Urine Ketones Neg mg/dL (Negative) 06/13/18 17:15 Urine Blood Sm (Negative) 06/13/18 17:15 Urine Nitrite Neg (Negative) 06/13/18 17:15 Urine Bilirubin Neg (Negative) 06/13/18 17:15 Urine Urobilinogen < 2.0 mg/dL (<2.0) 06/13/18 17:15 Ur Leukocyte Esterase Mod (Negative) 06/13/18 17:15 Urine WBC (Auto) 46.0 /HPF (0.0-6.0) H 06/13/18 17:15 Urine RBC (Auto) 12.0 /HPF (0.0-6.0) 06/13/18 17:15 U Epithel Cells (Auto) < 1.0 /HPF (0-13.0) 06/13/18 17:15 Blood Type O POSITIVE 06/13/18 22:42 Antibody Screen Negative 06/13/18 22:42 Crossmatch See Detail 06/13/18 22:42 Nutrition/Malnutrition Assess - Dietary Evaluation Nutrition/Malnutrition Findings: Nutrition Notes Start: 06/14/18 14:10 Freq: Status: Active Protocol: Document 06/14/18 14:10 RM (Rec: 06/14/18 14:23 RM [email or web address]) Nutrition Notes Need for Assessment generated from: MD Order regional extension service specialist Initial or Follow up Assessment Current Diagnosis Stroke Other Pertinent Diagnosis Sacral PU, L foot wound, L knee wound, UTI, PEG, Hypothyroidism Current Diet No diet ordered Labs/Tests K 5.4 Pertinent Medications Reviewed Height 6 ft Weight 88.6 kg [place] Body Weight (kg) 178.0 BMI 26.4 Subjective/Other Information Consulted for TF recommendation and screened for chewing difficulty. Burn Absent Trauma Absent #1 Nutrition Diagnosis Inadequate oral intake Etiology CVA As Evidenced by Signs and Symptoms pt requiring enteral nutrition to meet nutritional needs Is patient on ventilator? No Is Patient Ambulatory and/or Out of Bed No REE-([facility]-confined to bed) 2037.260 Calculation Used for Recommendations [facility] Additional Notes Protein Needs: 106-115g (1.2-1 .3g/kg) Fluid Needs: 1 ml/kcal Nutrition Intervention Nutrition Support: Nepro at 45 ml/hr. Water flush of 200 mls q 4 hrs . Kcal 1,944 Protein (gm) 87 Fluid (mL) 785 Goal #1 TF tolerance Goal #2 Meet at least 75% of calorie and protein needs via TF Anticipated Discharge Needs: TF Follow-Up By: 06/17/18 Additional Comments Follow for new TF, K lab
--- NOTE | 2018-06-17 14:36 | Progress Note ---
Assessment and Plan Culture: Blood culture 06/13/2018 no growth so far. Urine culture 06/13/2018 Pseudomonas resistant to levaquin, sens to cefepime A/P: 67 [facility] male [facility] resident with history of stroke, dementia, CHF, COPD, diabetes, multiple chronic decubiti, previous MDR Pseudomonas UTI, previous prostate abscess and hypertension; readmitted on 06/13/2018 due to AMS and fever at 103: Sepsis: still fever, better leukocytosis 19-->10K; etio. likely UTI +/- multiple infected necrotic decubiti Multiple infected necrotic decubi ulcers: mainly left medial thigh, right medialcalf and sacral [id number] UTI: due to Pseudomonas sensitive to cefepime. Previous Pseudomonas MDR only sens to zosyn/merren, treated with meropenem 1 g IV q8g total 21 days until 04/17/2018 Previous MRSA bacteremia: treated with 4 weeks of IV vancomycin until 03/27/2018. Plan: Stop meropenem Start cefepime 2 g IV q12h to treat Pseudomonas UTI Continue vancomycin to treat wound infection check MRSA PCR in negative will stop vanomycin wound care contact isolation f/u blood culture obtain wound culture - pending surgical consult for necrotic wounds family considering palliative care Discussed with Dr Garcia Yu f/u Penny Wynne MD [facility] M: [phone] O:[phone] Subjective Date of service: 06/17/18 Principal diagnosis: infected decubit Interval history: Patient feels better, more alert, still fever 100.2. Objective - Exam Narrative Exam: Constitutional: Alert, cooperative in no acute distress Head, Ears, Nose: Normocephalic, atraumatic. External ears, nose normal Eyes: Conjunctivae/corneas clear. No icterus. No ptosis. Neck: Supple, no meningeal signs Oral: no ulcers, no thrush Cardiovascular: RRR Respiratory: CTAbil GI: Soft, non-tender; bowel sounds normal. No peritoneal signs. +PEG Musculoskeletal: multiple decubiti * see wound care note Skin: No rash or abscess Hem/Lymphatic: No palpable cervical or supraclavicular nodes. No lymphangitis Psych: Mood ok. Affect normal Neurological: Awake, alert, confused, contracted legs. *Wound care note LEFT HEEL UNSTAGEABLE PRESSURE ULCER MEASURES 3.5X6X1. YELLOW SLOUGH NOTED TO WOUND BED. MODERATE AMOUNT OF SEROSANGUINEOUS DRAINAGE. NO ODOR. LEFT KNEE PRESSURE WOUND. MEASURES 4X1X0.2. SMALL AMOUNT OF SEROSANGUINEOUS DRAINAGE NOTED. LEFT MEDIAL THIGH UNSTAGEABLE PRESSURE ULCER MEASURES 3X2X0.2. WOUND IS NECROTIC. COVERED WITH YELLOW/BROWN SLOUGH. SMALL AMOUNT OF YELLOW DRAINAGE. RIGHT LATERAL ANKLE PRESSURE ULCER MEASURES 3X3X0.3. MODERATE AMOUNT OF SEROSANGUINEOUS DRAINAGE. NO ODOR. RIGHT LATERAL LEG PRESSURE ULCER MEASURES 6X2X0.3. SMALL AMOUNT OF SEROSANGUINEOUS DRAINAGE. NO ODOR. RIGHT MEDIAL LOWER LEG UNSTAGEABLE PRESSURE ULCER MEASURES 6.5X4.3X0.7. WOUND IS NECROTIC. MODERATE AMOUNT OF SEROSANGUINEOUS DRAINAGE NOTED. NO ODOR. RIGHT GREAT TOE ESCHAR. NO DRAINAGE NOTED. RIGHT HEEL UNSTAGEABLE PRESSURE ULCER MEASURES 2.5X4X1. MODERATE AMOUNT OF YELLOW SLOUGH COVERING WOUND BED. SMALL AMOUNT OF SEROSANGUINEOUS DRAINAGE NOTED. NO ODOR. LEFT HIP UNSTAGEABLE PRESSURE ULCER NOTED. MODERATE AMOUNT OF SEROSANGUINEOUS DR SANCHEZ NOTED. NO ODOR. WOUND MEASURES 7X8X2. CLEANSED WITH WOUND CLEANSER. LEFT BACK UNSTAGEABLE PRESSURE ULCER. COMPLETELY COVERED WITH YELLOW SLOUGH. WOUND MEASURES 4X3.8X0.2. SMALL AMOUNT OF YELLOW DRAINAGE. UNSTAGEABLE SACRAL PRESSURE ULCER MEASURES [id number]. THERE IS UNDERMINING FROM 12-3OCLOCK THAT PROBES TO A DEPTH OF 5CM. MODERATE AMOUNT OF SEROSANGUINEOUS DRAINAGE NOTED. NO ODOR. - Constitutional Vitals: Vital Signs Temp Pulse Resp BP Pulse Ox 99.5 F 84 20 154/72 100 06/17/18 08:37 06/17/18 11:04 06/17/18 10:00 06/17/18 11:04 06/17/18 09:18 Temperature -Last 24 Hours Temperature 99.5 F Temperature 99.4 F Temperature 100.2 F Temperature 100.2 F - Labs CBC & Chem 7: 06/17/18 05:43 06/17/18 05:43 Labs: Abnormal lab results 06/16/18 06/17/18 06/17/18 Range/Units 17:40 05:43 05:43 RBC 3.41 L (3.65-5.03) M/mm3 Hgb 9.2 L (11.8-15.2) gm/dl Hct 28.3 L (35.5-45.6) % MCV 83 L (84-94) fl MCH 27 L (28-32) pg RDW 15.8 H (13.2-15.2) % Sodium 136 L (137-145) mmol/L Chloride 107.5 H (98-107) mmol/L Carbon Dioxide 20 L (22-30) mmol/L Creatinine 0.4 L (0.8-1.5) mg/dL Glucose 106 H (75-100) mg/dL POC Glucose 107 H (70-105)
[2018-06-17] MEDS ORDERED: SIMPLE SYRUP FEEDTUBE PRN ×4 (16:49→16:55)
[2018-06-17] MEDS ORDERED: SODIUM BICARBONATE FEEDTUBE PRN ×2 (16:49→16:55)
[2018-06-17] MEDS ORDERED: PANCREAZE DR 10,500 UNIT FEEDTUBE PRN ×2 (16:49→16:55)
[2018-06-17] MEDS: DAKIN'S HALF STRENGTH TP SCH ×2 (17:47→21:36)
[2018-06-17] MEDS: MAXIPIME/NS 2 GM/100 ML 2 GM/100 ML BAG IV SCH (18:21)
[2018-06-18] MEDS: D5/0.45NS 1,000 ML IV SCH ×2 (02:36→21:49)
[2018-06-18] MEDS: MAXIPIME/NS 2 GM/100 ML 2 GM/100 ML BAG IV SCH ×2 (03:08→15:26)
[2018-06-18] MEDS: VANCOMYCIN 1,250 MG in NACL 0.9% 250ML 250 ML IV SCH ×3 (04:52→19:30)
--- NOTE | 2018-06-18 08:29 | Progress Note ---
Assessment and Plan Assessment and plan: 67 YO Male Group Home Facility Resident as [facility] with HTN, CVA, Obstructive Uropathy, Contracture, Decubitus Ulcers, [place], DM, OA, Seizure Disorder, COPD, Dementia, BPH presented to ED with complaints of fever. Patient was alert and oriented to person place but not to time. Patient was noted to have a temperature 103. EMS notified and patient transported to [facility] for further care and evaluation. Pt seen and evaluated in ED and found to have sepsis, Encephalopathy, and symptomatic anemia. Pt admitted to [facility]NA unit. No further history obtainable. The patient was discharged from the hospital following treatments for acute UTI with known history of multi drug resistant organisms in the past. Sepsis IV antibiotic therapy, IVF resuscitation, monitor uop q shift, Blood culture with no growth so far ID consult- VANC AND MERREM Urine culture- Pseudomonas- prior hx of MDR NOTED HTN (hypertension) Current Visit: Yes Status: Acute Qualifiers: Hypertension type: essential hypertension Qualified Code(s): I10 - Essential (primary) hypertension Plan to address problem: monitor bp q shift, continue medical management Diabetes Mellitus Current Visit: Yes Status: Acute Plan to address problem: ADA diet, insulin, accu check Severe Anemia Current Visit: Yes Status: Acute Plan to address problem: PRBC Transfusion, repeat cbc. Improved. avoid NSAIDS AND ANTIPLATELETS. Likely Hemolysis- elevated haptoglobin Outpatient referral to Hematology on discharge. NO CLEAR BLEEDING SOURCE Multiple pressure ulcers at different stages Wound care consult see wound care note Toxic Metabolic Encephalopathy Current Visit: Yes Status: Acute Plan to address problem: Supportive care, thyroid panel, seizure precautions, aspiration precautions Although he is able to assist with diet. +MRSA SCREEN ISOLATION PRECAUTIONS DVT prophylaxis Current Visit: Yes Status: Acute Plan to address problem: SCD to BLE while in bed. POOR PROGNOSIS. Dr Tena discussed extensively with the patients daughter Angela. She was agreeable to palliative care on discharge but not hospice at this time due to patient's wishes. History Interval history: Patient was seen and evaluated this morning at the bedside, patient didn't have any complaints. Hospitalist Physical - Physical exam Narrative exam: Not in cardiopulmonary distress. The patient appeared well nourished and normally developed. Vital signs as documented. Head exam is unremarkable. No scleral icterus . Neck is without jugular venous distension, thyromegaly, or carotid bruits. Lungs are clear to auscultation. Cardiac exam reveals regular rate and Rhythm. First and second heart sounds normal. No murmurs, rubs or gallops. Abdominal exam reveals normal bowel sounds, no masses, no organomegaly and no aortic enlargement. Extremities multiple lower extremity ulcers. COLOR ARTIST: Alert and oriented 2. Patient is bedbound - Constitutional Vitals: Temp Pulse Resp BP Pulse Ox 99.4 F 92 H 22 152/78 99 06/18/18 01:56 06/18/18 01:56 06/18/18 01:56 06/18/18 01:56 06/18/18 07:59 General appearance: Present: mild distress Results - Labs CBC & Chem 7: 06/17/18 05:43 06/17/18 05:43 Labs: Laboratory Last Values WBC 10.1 K/mm3 (4.5-11.0) 06/17/18 05:43 RBC 3.41 M/mm3 (3.65-5.03) L 06/17/18 05:43 Hgb 9.2 gm/dl (11.8-15.2) L 06/17/18 05:43 Hct 28.3 % (35.5-45.6) L 06/17/18 05:43 MCV 83 fl (84-94) L 06/17/18 05:43 MCH 27 pg (28-32) L 06/17/18 05:43 MCHC 33 % (32-34) 06/17/18 05:43 RDW 15.8 % (13.2-15.2) H 06/17/18 05:43 Plt Count 424 K/mm3 (140-440) 06/17/18 05:43 Lymph % (Auto) 8.2 % (13.4-35.0) L 06/13/18 14:02 [place] % (Auto) 7.0 % (0.0-7.3) 06/13/18 14:02 Eos % (Auto) 1.0 % (0.0-4.3) 06/13/18 14:02 Baso % (Auto) 0.6 % (0.0-1.8) 06/13/18 14:02 Lymph # 1.6 K/mm3 (1.2-5.4) 06/13/18 14:02 [place] # 1.4 K/mm3 (0.0-0.8) H 06/13/18 14:02 Eos # 0.2 K/mm3 (0.0-0.4) 06/13/18 14:02 Baso # 0.1 K/mm3 (0.0-0.1) 06/13/18 14:02 Seg Neutrophils % 83.2 % (40.0-70.0) H 06/13/18 14:02 Seg Neutrophils # 16.2 K/mm3 (1.8-7.7) H 06/13/18 14:02 VBG pH 7.435 (7.320-7.420) H 06/13/18 14:02 Sodium 136 mmol/L (137-145) L 06/17/18 05:43 Potassium 3.8 mmol/L (3.6-5.0) 06/17/18 05:43 Chloride 107.5 mmol/L (98-107) H 06/17/18 05:43 Carbon Dioxide 20 mmol/L (22-30) L 06/17/18 05:43 Anion Gap 12 mmol/L 06/17/18 05:43 BUN 13 mg/dL (9-20) 06/17/18 05:43 Creatinine 0.4 mg/dL (0.8-1.5) L 06/17/18 05:43 Estimated GFR > 60 ml/min 06/17/18 05:43 BUN/Creatinine Ratio 33 % 06/17/18 05:43 Glucose 106 mg/dL (75-100) H 06/17/18 05:43 POC Glucose 100 (70-105) 06/18/18 06:17 Lactic Acid 0.80 mmol/L (0.7-2.0) 06/13/18 23:30 Calcium 8.6 mg/dL (8.4-10.2) 06/17/18 05:43 Magnesium 2.40 mg/dL (1.7-2.3) H 06/14/18 17:36 Total Bilirubin 0.30 mg/dL (0.1-1.2) 06/13/18 14:02 AST 43 units/L (5-40) H 06/13/18 14:02 ALT 44 units/L (7-56) 06/13/18 14:02 Alkaline Phosphatase 339 units/L (35-129) H 06/13/18 14:02 C-Reactive Protein 13.50 mg/dL (0.00-1.30) H 06/14/18 17:36 Total Protein 8.1 g/dL (6.3-8.2) 06/13/18 14:02 Albumin 2.6 g/dL (3.9-5) L 06/13/18 14:02 Albumin/Globulin Ratio 0.5 % 06/13/18 14:02 Urine Color Yellow (Yellow) 06/13/18 17:15 Urine Turbidity Clear (Clear) 06/13/18 17:15 Urine pH 8.0 (5.0-7.0) H 06/13/18 17:15 Ur Specific [place] 1.013 (1.003-1.030) 06/13/18 17:15 Urine Protein 30 mg/dl mg/dL (Negative) 06/13/18 17:15 Urine Glucose (UA) Neg mg/dL (Negative) 06/13/18 17:15 Urine Ketones Neg mg/dL (Negative) 06/13/18 17:15 Urine Blood Sm (Negative) 06/13/18 17:15 Urine Nitrite Neg (Negative) 06/13/18 17:15 Urine Bilirubin Neg (Negative) 06/13/18 17:15 Urine Urobilinogen < 2.0 mg/dL (<2.0) 06/13/18 17:15 Ur Leukocyte Esterase Mod (Negative) 06/13/18 17:15 Urine WBC (Auto) 46.0 /HPF (0.0-6.0) H 06/13/18 17:15 Urine RBC (Auto) 12.0 /HPF (0.0-6.0) 06/13/18 17:15 U Epithel Cells (Auto) < 1.0 /HPF (0-13.0) 06/13/18 17:15 Blood Type O POSITIVE 06/13/18 22:42 Antibody Screen Negative 06/13/18 22:42 Crossmatch See Detail 06/13/18 22:42 Nutrition/Malnutrition Assess - Dietary Evaluation Nutrition/Malnutrition Findings: Nutrition Notes Start: 06/14/18 14:10 Freq: Status: Active Protocol: Document 06/17/18 16:38 CHANDRAKANT (Rec: 06/17/18 16:49 CHANDRAKANT [email or web address]) Nutrition Notes Initial or Follow up Reassessment Current Diagnosis Decubitus(Pressure Ulcer) Diabetes Sepsis Hypertension Other Pertinent Diagnosis Severe anemia Current Diet TF - Nepro at 45ml/hr Labs/Tests K lab WNL Pertinent Medications Liquid MVI Height 6 ft Weight 61.36 kg [place] Body Weight (kg) 80.90 BMI 18.3 Weight change and time frame Current wt obtained from bed scale Weight Status Underweight Subjective/Other Information Per RN, pt tolerating TF at goal rate. Percent of energy/protein needs met: 100% energy and pro Burn Absent Trauma Absent #1 Nutrition Diagnosis Inadequate oral intake Diagnosis Progress(for reassessment Continues documentation) Is patient on ventilator? No Is Patient Ambulatory and/or Out of Bed No REE-([facility]-confined to bed) 1711.716 Kcal/Kg value to use for calculation 35 Approximate Energy Requirements Using 2148 kcal/Kg Calculation Used for Recommendations Kcal/kg Additional Notes Pro needs 1.25-1.5g/k-92g /day Fluid needs 1ml/kcal Nutrition Intervention Nutrition Support: Change TF formula to Osmolite 1.5 at 55ml/hr. Provide 150ml water flush q4h. Kcal 1,980 Protein (gm) 83 Fluid (mL) 1,006 Goal #1 TF tolerance Goal #2 TF to meet 100% energy and pro needs Goal #3 Wt maintenance and/or gain Anticipated Discharge Needs: Continue Osmolite 1.5 (or equivalent) at 55ml/hr with 150ml water flush q4h or per MD order Follow-Up By: 06/18/18 Additional Comments F/U: TF formula change
[2018-06-18] MEDS: Centrum Liq PO SCH (09:19)
[2018-06-18] MEDS: NORVASC FEEDTUBE SCH (09:19)
[2018-06-18] MEDS: KEPPRA FEEDTUBE SCH ×2 (09:19→21:49)
[2018-06-18] MEDS: SODIUM CHLORIDE FLUSH SYRINGE 10 ML IV SCH ×2 (09:20→21:49)
--- NOTE | 2018-06-18 10:41 | Progress Note ---
Assessment and Plan Culture: Blood culture 06/13/2018 no growth so far. Urine culture 06/13/2018 Pseudomonas resistant to levaquin, sens to cefepime A/P: 67 y/[facility] male [facility] resident with history of stroke, dementia, CHF, COPD, diabetes, multiple chronic decubiti, previous MDR Pseudomonas UTI, previous prostate abscess and hypertension; readmitted on 06/13/2018 due to AMS and fever at 103: Sepsis: resolved; etio. likely UTI +/- multiple infected necrotic decubiti Multiple infected necrotic decubi ulcers: mainly left medial thigh, right medialcalf and sacral [id number] UTI: due to Pseudomonas sensitive to cefepime. Previous Pseudomonas MDR only sens to zosyn/merren, treated with meropenem 1 g IV q8g total 21 days until 04/17/2018 Previous MRSA bacteremia: treated with 4 weeks of IV vancomycin until 03/27/2018. Plan: Monitor fever Continue cefepime 2 g IV q12h to treat Pseudomonas UTI Continue vancomycin to treat wound infection check MRSA PCR in negative will stop vanomycin wound care contact isolation f/u blood culture obtain wound culture - pending surgical consult for necrotic wounds family considering palliative care but denies hospice and wants wounds treated. Wound healing prognosis poor as patient is contracted and bedbound. Check legs arterial dopplers Will f/u Penny Wynne MD [facility] M: [phone] O:[phone] Subjective Date of service: 06/18/18 Principal diagnosis: infected decubit Interval history: Patient feels better, more alert, no fever x 24h Objective - Exam Narrative Exam: Constitutional: Alert, cooperative in no acute distress Head, Ears, Nose: Normocephalic, atraumatic. External ears, nose normal Eyes: Conjunctivae/corneas clear. No icterus. No ptosis. Neck: Supple, no meningeal signs Oral: no ulcers, no thrush Cardiovascular: RRR Respiratory: CTAbil GI: Soft, non-tender; bowel sounds normal. No peritoneal signs. +PEG Musculoskeletal: multiple decubiti Skin: No rash or abscess Hem/Lymphatic: No palpable cervical or supraclavicular nodes. No lymphangitis Psych: Mood ok. Affect normal Neurological: Awake, alert, confused, contracted legs. - Constitutional Vitals: Vital Signs Temp Pulse Resp BP Pulse Ox 98.1 F 103 H 20 152/76 99 06/18/18 08:16 06/18/18 09:19 06/18/18 08:31 06/18/18 09:19 06/18/18 08:31 Temperature -Last 24 Hours Temperature 98.1 F Temperature 99.4 F Temperature 98.8 F Temperature 99.2 F - Labs CBC & Chem 7: 06/17/18 05:43 06/17/18 05:43 Labs: Abnormal lab results 06/18/18 Range/Units 00:28 POC Glucose 106 H (70-105)
--- NOTE | 2018-06-18 13:37 | Vascular Lab Report ---
FINAL REPORT EXAM: VL ARTERIAL DUPLEX LE BILAT HISTORY: multiple leg ulcers COMPARISON: None. TECHNIQUE: Duplex Doppler ultrasound of the arteries of the bilateral lower extremities was jessica dodge. FINDINGS: There are triphasic waveforms of the right external iliac artery, common femoral artery, superficial femoral artery, profunda branch, and popliteal artery. There is occlusion of the right posterior tibi al artery. There are monophasic waveforms in the right anterior tibial artery. There are triphasic waveforms of the left external iliac artery, common femoral artery, superficial f emoral artery, profunda branch, popliteal artery, and posterior tibial artery. There are biphasic wav eforms of the left anterior tibial artery. Peak systolic velocities (cm/sec) are as follows: Right external iliac artery: 104 Right common femoral artery: 104.1 Right superficial femoral artery: 101.9 Right profunda branch: 90.4 Right popliteal artery: 78.1 Right anterior tibial artery: 26.1 Right posterior tibial artery: Occluded. Left external iliac artery: 203 Left common femoral artery: 93.4 Left superficial femoral artery: 101.6 Left profunda branch: 106.6 Left popliteal artery: 74.4 Left anterior tibial artery: 25.2 Left posterior tibial artery: 91.3 IMPRESSION: 1. Occluded right posterior tibial artery. 2. Monophasic waveforms of the right anterior tibial artery suggestive of severe peripheral vascular disease. 3. Biphasic waveforms of the left anterior tibial artery suggestive of moderate to severe peripheral vascular disease.
[2018-06-18] MEDS: DAKIN'S HALF STRENGTH TP SCH ×2 (15:30→21:58)
[2018-06-18] MEDS ORDERED: VANCOMYCIN PHARMACY TO DOSE IV SCH (20:00)
[2018-06-19] MEDS: MAXIPIME/NS 2 GM/100 ML 2 GM/100 ML BAG IV SCH ×2 (03:35→23:12)
[2018-06-19 08:53] LABS: BUN/Creatinine Ratio 33; Blood Urea Nitrogen 13 mg/dL (9-20); Hemolysis Index 4
[2018-06-19] MEDS: DAKIN'S HALF STRENGTH TP SCH ×2 (09:36→23:12)
[2018-06-19] MEDS: NORVASC FEEDTUBE SCH (09:38)
[2018-06-19] MEDS: Centrum Liq PO SCH (09:39)
[2018-06-19] MEDS: KEPPRA FEEDTUBE SCH ×2 (09:39→22:39)
[2018-06-19] MEDS: SODIUM CHLORIDE FLUSH SYRINGE 10 ML IV SCH ×3 (09:47→23:12)
--- NOTE | 2018-06-19 13:03 | Consultation ---
History of Present Illness Consult date: 06/19/18 Chief complaint: Sacral, left hip, left back, bilateral heel and right leg pressure ulcerations - History of present illness History of present illness: Unfortunate 67 yo male s/p CVA and with dementia. He is being fed via a PEG. He is a chronic Wound [facility] pt. I have had long discussions with the pt's daughter, his POA re a long term care phlebotomist plan including whether to proceed with bilateral AKA's vs whether to stop his tube feedings and let nature take it's course vs continuing with local debridement/wound care and doing the best we can with this very difficult situation. His daughter says she cannot stop his tube feedings. She is also not ready to consent for bilateral AKA's. Past History Past Medical History: acute [place], arthritis, COPD, diabetes, hypertension, seizures, other (Dementia/CVA) Past Surgical History: Other (G Tube) Social history: single. denies: smoking, alcohol abuse, prescription drug abuse Family history: diabetes, hypertension Medications and Allergies Allergies Allergy/AdvReac Type Severity Reaction Status Date / Time tramadol Allergy Unknown Verified 03/23/18 17:14 Home Medications Medication Instructions Recorded Confirmed Last Taken Type amLODIPine [Norvasc] 10 mg PO DAILY 06/02/16 06/13/18 Unknown History levETIRAcetam [Keppra] 500 mg PO BID #60 07/23/17 06/13/18 Unknown Rx Multivit-Min/Iron Fum/Folic AC 1 each PO DAILY 03/24/18 06/13/18 Unknown History [[id number] Tablet] Atorvastatin Calcium [Lipitor] 40 mg PO HS 06/13/18 06/13/18 Unknown History Carvedilol [Coreg] 6.25 mg PO BID 06/13/18 06/13/18 Unknown History Active Meds: Active Medications Acetaminophen (Tylenol) 650 mg PO Q4H PRN PRN Reason: Pain MILD(1-3)/Fever >100.5/PRICE Albuterol (Proventil) 2.5 mg IH Q4HRT PRN PRN Reason: Shortness Of Breath Amlodipine Besylate (Norvasc) 10 mg FEEDTUBE DAILY [facility] Last Admin: 06/19/18 09:38 Dose: 10 mg Documented by: Lipase/Protease/Amylase (Nickie Moore 10,500 Unit) 1 each FEEDTUBE PRN PRN PRN Reason: For Clogged Feeding Tube Atorvastatin Calcium (Lipitor) 40 mg FEEDTUBE HS [facility] Last Admin: 06/18/18 21:49 Dose: 40 mg Documented by: Dextrose/Sodium Chloride (D5/0.45ns) 1,000 mls @ 75 mls/hr IV DIRECT [facility] Last Admin: 06/18/18 21:49 Dose: 75 mls/hr Documented by: Cefepime HCl (Maxipime/Ns 2 Gm/100 Ml) 2 gm in 100 mls @ 200 mls/hr IV Q12H [facility]; Protocol Last Infusion: 06/19/18 03:35 Dose: 200 mls/hr Documented by: Levetiracetam (Keppra) 500 mg FEEDTUBE BID [facility] Last Admin: 06/19/18 09:39 Dose: 500 mg Documented by: Multivitamins (Centrum Liq) 5 ml PO QDAY [facility] Last Admin: 06/19/18 09:39 Dose: 5 ml Documented by: Ondansetron HCl (Zofran) 4 mg IV Q8H PRN PRN Reason: Nausea And Vomiting Simple Syrup (Simple Syrup) 15 ml FEEDTUBE PRN PRN PRN Reason: Hypoglycemia Simple Syrup (Simple Syrup) 30 ml FEEDTUBE PRN PRN PRN Reason: Hypoglycemia Sodium Bicarbonate (Sodium Bicarbonate) 325 mg FEEDTUBE PRN PRN PRN Reason: For Clogged Feeding Tube Sodium Chloride (Sodium Chloride Flush Syringe 10 Ml) 10 ml IV BID [facility] Last Admin: 06/19/18 10:16 Dose: 10 ml Documented by: Sodium Chloride (Sodium Chloride Flush Syringe 10 Ml) 10 ml IV PRN PRN PRN Reason: LINE FLUSH Sodium Hypochlorite (Dakin's Half Strength) 1 applic TP BID [facility] Last Admin: 06/19/18 09:36 Dose: 1 ampul Documented by: Review of Systems ROS unobtainable: due to mental status Exam Vital Signs Temp Pulse Resp BP Pulse Ox 103.1 F H 104 H 18 138/78 100 06/13/18 12:42 06/13/18 12:42 06/13/18 12:42 06/13/18 12:42 06/13/18 12:42 - General physical appearance Positive: no pain, chronically ill - Eyes Positive: PERRL, normal occular movement - ENT Positive: normal pinna, normal nares, normal mucosa, no hearing loss, no congestion - Neck Positive: no masses, no bruits, trachea midline, no venous distension - Respiratory Positive: normal expansion, normal respiratory effort, clear to auscultation - Cardiovascular Rhythm: regular Heart Sounds: Present: S1 & S2. Absent: rub, click - Extremities Extremities: No edema, normal temperature, normal color - Breasts Breasts: deferred - Abdomen Abdomen: Present: soft, bowel sounds normal. Absent: tender, distended Hernia: none - Genitourinary Male Genitourinary: deferred - Integumentary other (See my op note.) - Neurologic Neurologic: other (Not oriented to year) - Psychiatric Psychiatric: agitated Results - Labs 06/17/18 05:43 06/19/18 08:14 Abnormal lab results 06/18/18 06/18/18 06/18/18 Range/Units 15:03 17:23 23:34 Sodium (137-145) mmol/L Carbon Dioxide (22-30) mmol/L Creatinine (0.8-1.5) mg/dL Glucose (75-100) mg/dL POC Glucose 116 H 113 H (70-105) Vancomycin Trough 36.5 H (5.0-20.0) ug/mL 06/19/18 06/19/18 Range/Units 08:14 11:56 Sodium 135 L (137-145) mmol/L Carbon Dioxide 21 L (22-30) mmol/L Creatinine 0.4 L (0.8-1.5) mg/dL Glucose 111 H (75-100) mg/dL POC Glucose 117 H (70-105) Vancomycin Trough (5.0-20.0) ug/mL Diabetes panel 06/19/18 Range/Units 08:14 Sodium 135 L (137-145) mmol/L Potassium 4.0 (3.6-5.0) mmol/L Chloride 102.7 (98-107) mmol/L Carbon Dioxide 21 L (22-30) mmol/L BUN 13 (9-20) mg/dL Creatinine 0.4 L (0.8-1.5) mg/dL Glucose 111 H (75-100) mg/dL Calcium 9.0 (8.4-10.2) mg/dL Calcium panel 06/19/18 Range/Units 08:14 Calcium 9.0 (8.4-10.2) mg/dL Pituitary panel 06/19/18 Range/Units 08:14 Sodium 135 L (137-145) mmol/L Potassium 4.0 (3.6-5.0) mmol/L Chloride 102.7 (98-107) mmol/L Carbon Dioxide 21 L (22-30) mmol/L BUN 13 (9-20) mg/dL Creatinine 0.4 L (0.8-1.5) mg/dL Glucose 111 H (75-100) mg/dL Calcium 9.0 (8.4-10.2) mg/dL Adrenal panel 06/19/18 Range/Units 08:14 Sodium 135 L (137-145) mmol/L Potassium 4.0 (3.6-5.0) mmol/L Chloride 102.7 (98-107) mmol/L Carbon Dioxide 21 L (22-30) mmol/L BUN 13 (9-20) mg/dL Creatinine 0.4 L (0.8-1.5) mg/dL Glucose 111 H (75-100) mg/dL Calcium 9.0 (8.4-10.2) mg/dL Assessment and Plan - Patient Problems (1) Decubitus ulcer Current Visit: Yes Status: Acute Plan to address problem: 1) Continue off loading and local wound care 2) Continue PEG feedings 3) His ulcerations need additional debridement. Please see my op note of today.
--- NOTE | 2018-06-19 13:20 | Procedure Note ---
Date of procedure: 06/19/18 Pre-op diagnosis: 1) Stage 3 pressure ulcers of the sacrum, left hip, right heel & right leg Post-op diagnosis: same (Also, stage 2 pressure ulcer of the left heel) Procedure: 1) Debridement of necrotic skin, SQ, muscle and fascia from the sacrum, left hip, right heel and right medial leg 2) Debridement of necrotic skin & SQ - left heel Description of procedure: Pt was placed right side down on his bed. The sacral, left hip, right heel and right medial leg were surgically, excisionally debrided of necrotic skin, SQ, muscle and fascia with forceps and Metzenbaum scissors. The left heel was surgically, excisionally debrided of necrotic skin and SQ with forceps and Metzenbaum scissors. Bleeding was minimal and was controlled with pressure. Wounds were then dressed by the Wound Care nurse, Melissa, who assisted me with this procedure. The procedure was well tolerated. Final wound measurements are as follows: 1) Sacrum - 18 X 10.5 X 2 cm 2) Left hip - 7.5 X 7 X 1.5 cm 3) Right heel - 3 X 3 X 1 4) Right medial leg - 6 X 3 X 0.5 cm 5) Left heel - 5 X 4.5 X 1 cm Anesthesia: none Surgeon: FABRICIO WASHINGTON Estimated blood loss: minimal Pathology: none Specimen disposition: discarded Condition: stable Disposition: no change
--- NOTE | 2018-06-19 14:10 | Progress Note ---
Assessment and Plan Culture: Blood culture 06/13/2018 no growth so far. Urine culture 06/13/2018 Pseudomonas resistant to levaquin, sens to cefepime A/P: 67 y/o male shelter resident with history of stroke, dementia, CHF, COPD, diabetes, multiple chronic decubiti, previous MDR Pseudomonas UTI, previous prostate abscess and hypertension; readmitted on 06/13/2018 due to AMS and fever at 103: Sepsis: resolved; etio. likely UTI +/- multiple infected necrotic decubiti Multiple infected necrotic decubi ulcers: mainly left medial thigh, right medialcalf and sacral [id number]. Stage 3 pressure ulcers of the sacrum, left hip, right heel & right leg. - S/P Debridement of necrotic skin, SQ, muscle and fascia from the sacrum, left hip, right heel and right medial leg and debridement of necrotic skin & SQ - left heel UTI: due to Pseudomonas sensitive to cefepime. Previous Pseudomonas MDR only sens to zosyn/merren, treated with meropenem 1 g IV q8g total 21 days until Previous MRSA bacteremia: treated with 4 weeks of IV vancomycin until 03/27/2018. PVD: art US showed occluded right posterior tibial artery, monophasic waveforms of the right anterior tibial artery suggestive of severe peripheral vascular disease and biphasic waveforms of the left anterior tibial artery suggestive of moderate to severe peripheral vascular disease. Plan: Vascular consult in view of abnormal art US Continue cefepime 2 g IV q12h to treat Pseudomonas UTI Continue vancomycin to treat wound infection check MRSA PCR in negative will stop vanomycin - pending wound care Will f/u Penny Wynne MD [facility] M: [phone] O:[phone] Subjective Date of service: 06/19/18 Principal diagnosis: infected decubit Interval history: Patient feels better, more alert, no fever x 24h, tmax 99.9. Poor historian. Objective - Exam Narrative Exam: Constitutional: Alert, cooperative in no acute distress Head, Ears, Nose: Normocephalic, atraumatic. External ears, nose normal Eyes: Conjunctivae/corneas clear. No icterus. No ptosis. Neck: Supple, no meningeal signs Oral: no ulcers, no thrush Cardiovascular: RRR Respiratory: CTAbil GI: Soft, non-tender; bowel sounds normal. No peritoneal signs. +PEG Musculoskeletal: multiple decubiti Skin: No rash or abscess Hem/Lymphatic: No palpable cervical or supraclavicular nodes. No lymphangitis Psych: Mood ok. Affect normal Neurological: Awake, alert, confused, contracted legs. - Constitutional Vitals: Vital Signs Temp Pulse Resp BP Pulse Ox 99.0 F 104 H 20 122/62 99 06/19/18 13:08 06/19/18 13:08 06/19/18 13:08 06/19/18 13:08 06/19/18 13:08 Temperature -Last 24 Hours Temperature 99.0 F Temperature 98.9 F Temperature 99.9 F Temperature 97.4 F - Labs CBC & Chem 7: 06/17/18 05:43 06/19/18 08:14 Labs: Abnormal lab results 06/18/18 06/18/18 06/18/18 Range/Units 15:03 17:23 23:34 Sodium (137-145) mmol/L Carbon Dioxide (22-30) mmol/L Creatinine (0.8-1.5) mg/dL Glucose (75-100) mg/dL POC Glucose 116 H 113 H (70-105) Vancomycin Trough 36.5 H (5.0-20.0) ug/mL 06/19/18 06/19/18 Range/Units 08:14 11:56 Sodium 135 L (137-145) mmol/L Carbon Dioxide 21 L (22-30) mmol/L Creatinine 0.4 L (0.8-1.5) mg/dL Glucose 111 H (75-100) mg/dL POC Glucose 117 H (70-105) Vancomycin Trough (5.0-20.0) ug/mL
--- NOTE | 2018-06-19 14:23 | Progress Note ---
Assessment and Plan Assessment and plan: 67 YO Male Long Term Facility Resident as [facility] with HTN, CVA, Obstructive Uropathy, Contracture, Decubitus Ulcers, CT, DM, OA, Seizure Disorder, COPD, Dementia, BPH presented to ED with complaints of fever. Patient was alert and oriented to person place but not to time. Patient was noted to have a temperature 103. EMS notified and patient transported to [facility] for further care and evaluation. Pt seen and evaluated in ED and found to have sepsis, Encephalopathy, and symptomatic anemia. Pt admitted to [facility] unit. No further history obtainable. The patient was discharged from the hospital following treatments for acute UTI with known history of multi drug resistant organisms in the past. Sepsis IV antibiotic therapy, IVF resuscitation, monitor uop q shift, Blood culture with no growth so far ID consult- VANC AND MERREM Urine culture- Pseudomonas- prior hx of MDR NOTED HTN (hypertension) Current Visit: Yes Status: Acute Qualifiers: Hypertension type: essential hypertension Qualified Code(s): I10 - Essential (primary) hypertension Plan to address problem: monitor bp q shift, continue medical management Diabetes Mellitus Current Visit: Yes Status: Acute Plan to address problem: ADA diet, insulin, accu check Severe Anemia Current Visit: Yes Status: Acute Plan to address problem: PRBC Transfusion, repeat cbc. Improved. avoid NSAIDS AND ANTIPLATELETS. Likely Hemolysis- elevated haptoglobin Outpatient referral to Hematology on discharge. NO CLEAR BLEEDING SOURCE Multiple pressure ulcers at different stages - Dr. Man was consulted and did wound debridement at the bedside Toxic Metabolic Encephalopathy Current Visit: Yes Status: Acute Plan to address problem: Supportive care, thyroid panel, seizure precautions, aspiration precautions Although he is able to assist with diet. +MRSA SCREEN ISOLATION PRECAUTIONS DVT prophylaxis Current Visit: Yes Status: Acute Plan to address problem: SCD to BLE while in bed. Peripheral vascular disease - Vascular surgery consulted POOR PROGNOSIS. Dr Tena discussed extensively with the patients daughter Angela. She was agreeable to palliative care on discharge but not hospice at this time due to patient's wishes. Consider to discharge with IV antibiotics. History Interval history: Patient was seen and evaluated this morning at the bedside, patient complains pain in the wound area. Hospitalist Physical - Physical exam Narrative exam: Not in cardiopulmonary distress. The patient appeared well nourished and normally developed. Vital signs as documented. Head exam is unremarkable. No scleral icterus . Neck is without jugular venous distension, thyromegaly, or carotid bruits. Lungs are clear to auscultation. Cardiac exam reveals regular rate and Rhythm. First and second heart sounds normal. No murmurs, rubs or gallops. Abdominal exam reveals normal bowel sounds, no masses, no organomegaly and no aortic enlargement. Extremities multiple lower extremity ulcers. VISION REHABILITATION THERAPIST: Alert and oriented 2. Patient is bedbound - Constitutional Vitals: Temp Pulse Resp BP Pulse Ox 99.0 F 104 H 20 122/62 99 06/19/18 13:08 06/19/18 13:08 06/19/18 13:08 06/19/18 13:08 06/19/18 13:08 General appearance: Present: mild distress Results - Labs CBC & Chem 7: 06/17/18 05:43 06/19/18 08:14 Labs: Laboratory Last Values WBC 10.1 K/mm3 (4.5-11.0) 06/17/18 05:43 RBC 3.41 M/mm3 (3.65-5.03) L 06/17/18 05:43 Hgb 9.2 gm/dl (11.8-15.2) L 06/17/18 05:43 Hct 28.3 % (35.5-45.6) L 06/17/18 05:43 MCV 83 fl (84-94) L 06/17/18 05:43 MCH 27 pg (28-32) L 06/17/18 05:43 MCHC 33 % (32-34) 06/17/18 05:43 RDW 15.8 % (13.2-15.2) H 06/17/18 05:43 Plt Count 424 K/mm3 (140-440) 06/17/18 05:43 Lymph % (Auto) 8.2 % (13.4-35.0) L 06/13/18 14:02 [place] % (Auto) 7.0 % (0.0-7.3) 06/13/18 14:02 Eos % (Auto) 1.0 % (0.0-4.3) 06/13/18 14:02 Baso % (Auto) 0.6 % (0.0-1.8) 06/13/18 14:02 Lymph # 1.6 K/mm3 (1.2-5.4) 06/13/18 14:02 [place] # 1.4 K/mm3 (0.0-0.8) H 06/13/18 14:02 Eos # 0.2 K/mm3 (0.0-0.4) 06/13/18 14:02 Baso # 0.1 K/mm3 (0.0-0.1) 06/13/18 14:02 Seg Neutrophils % 83.2 % (40.0-70.0) H 06/13/18 14:02 Seg Neutrophils # 16.2 K/mm3 (1.8-7.7) H 06/13/18 14:02 VBG pH 7.435 (7.320-7.420) H 06/13/18 14:02 Sodium 135 mmol/L (137-145) L 06/19/18 08:14 Potassium 4.0 mmol/L (3.6-5.0) 06/19/18 08:14 Chloride 102.7 mmol/L (98-107) 06/19/18 08:14 Carbon Dioxide 21 mmol/L (22-30) L 06/19/18 08:14 Anion Gap 15 mmol/L 06/19/18 08:14 BUN 13 mg/dL (9-20) 06/19/18 08:14 Creatinine 0.4 mg/dL (0.8-1.5) L 06/19/18 08:14 Estimated GFR > 60 ml/min 06/19/18 08:14 BUN/Creatinine Ratio 33 % 06/19/18 08:14 Glucose 111 mg/dL (75-100) H 06/19/18 08:14 POC Glucose 117 (70-105) H 06/19/18 11:56 Lactic Acid 0.80 mmol/L (0.7-2.0) 06/13/18 23:30 Calcium 9.0 mg/dL (8.4-10.2) 06/19/18 08:14 Magnesium 2.40 mg/dL (1.7-2.3) H 06/14/18 17:36 Total Bilirubin 0.30 mg/dL (0.1-1.2) 06/13/18 14:02 AST 43 units/L (5-40) H 06/13/18 14:02 ALT 44 units/L (7-56) 06/13/18 14:02 Alkaline Phosphatase 339 units/L (35-129) H 06/13/18 14:02 C-Reactive Protein 13.50 mg/dL (0.00-1.30) H 06/14/18 17:36 Total Protein 8.1 g/dL (6.3-8.2) 06/13/18 14:02 Albumin 2.6 g/dL (3.9-5) L 06/13/18 14:02 Albumin/Globulin Ratio 0.5 % 06/13/18 14:02 Urine Color Yellow (Yellow) 06/13/18 17:15 Urine Turbidity Clear (Clear) 06/13/18 17:15 Urine pH 8.0 (5.0-7.0) H 06/13/18 17:15 Ur Specific [place] 1.013 (1.003-1.030) 06/13/18 17:15 Urine Protein 30 mg/dl mg/dL (Negative) 06/13/18 17:15 Urine Glucose (UA) Neg mg/dL (Negative) 06/13/18 17:15 Urine Ketones Neg mg/dL (Negative) 06/13/18 17:15 Urine Blood Sm (Negative) 06/13/18 17:15 Urine Nitrite Neg (Negative) 06/13/18 17:15 Urine Bilirubin Neg (Negative) 06/13/18 17:15 Urine Urobilinogen < 2.0 mg/dL (<2.0) 06/13/18 17:15 Ur Leukocyte Esterase Mod (Negative) 06/13/18 17:15 Urine WBC (Auto) 46.0 /HPF (0.0-6.0) H 06/13/18 17:15 Urine RBC (Auto) 12.0 /HPF (0.0-6.0) 06/13/18 17:15 U Epithel Cells (Auto) < 1.0 /HPF (0-13.0) 06/13/18 17:15 Vancomycin Trough 36.5 ug/mL (5.0-20.0) H 06/18/18 15:03 Random Vancomycin 31.4 ug/mL (0-40.0) 06/19/18 08:14 Blood Type O POSITIVE 06/13/18 22:42 Antibody Screen Negative 06/13/18 22:42 Crossmatch See Detail 06/13/18 22:42 Nutrition/Malnutrition Assess - Dietary Evaluation Nutrition/Malnutrition Findings: Nutrition Notes Start: 06/14/18 14:10 Freq: Status: Active Protocol: Document 06/18/18 14:08 CHANDRAKANT (Rec: 06/18/18 14:15 CHANDRAKANT SRW- [id number]) Nutrition Notes Initial or Follow up Brief Note Current Diet TF - Osmolite 1.5 at 55ml/hr Subjective/Other Information Observed Osmolite 1.5 infusing at 50ml/hr. RN informed that TF goal rate is 55ml/hr. Percent of energy/protein needs met: 100% energy 97% pro Nutrition Intervention Follow-Up By: 06/19/18 Additional Comments F/U: TF goal rate
--- NOTE | 2018-06-19 14:47 | Consultation ---
History of Present Illness - Reason for Consult Consult date: 06/19/18 PVD - History of Present Illness Patient is a [facility] with a history of numerous pressure ulcers as well as a unstageable sacral decubitus ulcer being evaluated for possible peripheral vascular disease. His arterial ultrasound demonstrates biphasic and triphasic in flow. He does have some tibial disease. On examination, the patient is partially contracted. No complaints of pain. Past History Past Medical History: acute GA, arthritis, COPD, diabetes, hypertension, seizures, other (Dementia/CVA) Past Surgical History: Other (G Tube) Social history: single. denies: smoking, alcohol abuse, prescription drug abuse Family history: diabetes, hypertension Medications and Allergies Allergies Allergy/AdvReac Type Severity Reaction Status Date / Time tramadol Allergy Unknown Verified 03/23/18 17:14 Home Medications Medication Instructions Recorded Confirmed Last Taken Type amLODIPine [Norvasc] 10 mg PO DAILY 06/02/16 06/13/18 Unknown History levETIRAcetam [Keppra] 500 mg PO BID #60 07/23/17 06/13/18 Unknown Rx Multivit-Min/Iron Fum/Folic AC 1 each PO DAILY 03/24/18 06/13/18 Unknown History [Hqzja-Akbqqwq-Qoliqneh Tablet] Atorvastatin Calcium [Lipitor] 40 mg PO HS 06/13/18 06/13/18 Unknown History Carvedilol [Coreg] 6.25 mg PO BID 06/13/18 06/13/18 Unknown History Active Meds: Active Medications Acetaminophen (Tylenol) 650 mg PO Q4H PRN PRN Reason: Pain MILD(1-3)/Fever >100.5/PRICE Albuterol (Proventil) 2.5 mg IH Q4HRT PRN PRN Reason: Shortness Of Breath Amlodipine Besylate (Norvasc) 10 mg FEEDTUBE DAILY [facility] Last Admin: 06/19/18 09:38 Dose: 10 mg Documented by: Lipase/Protease/Amylase (Nickie Moore 10,500 Unit) 1 each FEEDTUBE PRN PRN PRN Reason: For Clogged Feeding Tube Atorvastatin Calcium (Lipitor) 40 mg FEEDTUBE HS [facility] Last Admin: 06/18/18 21:49 Dose: 40 mg Documented by: Dextrose/Sodium Chloride (D5/0.45ns) 1,000 mls @ 75 mls/hr IV DIRECT [facility] Last Admin: 06/18/18 21:49 Dose: 75 mls/hr Documented by: Cefepime HCl (Maxipime/Ns 2 Gm/100 Ml) 2 gm in 100 mls @ 200 mls/hr IV Q12H [facility]; Protocol Last Infusion: 06/19/18 03:35 Dose: 200 mls/hr Documented by: Levetiracetam (Keppra) 500 mg FEEDTUBE BID [facility] Last Admin: 06/19/18 09:39 Dose: 500 mg Documented by: Multivitamins (Centrum Liq) 5 ml PO QDAY [facility] Last Admin: 06/19/18 09:39 Dose: 5 ml Documented by: Ondansetron HCl (Zofran) 4 mg IV Q8H PRN PRN Reason: Nausea And Vomiting Simple Syrup (Simple Syrup) 15 ml FEEDTUBE PRN PRN PRN Reason: Hypoglycemia Simple Syrup (Simple Syrup) 30 ml FEEDTUBE PRN PRN PRN Reason: Hypoglycemia Sodium Bicarbonate (Sodium Bicarbonate) 325 mg FEEDTUBE PRN PRN PRN Reason: For Clogged Feeding Tube Sodium Chloride (Sodium Chloride Flush Syringe 10 Ml) 10 ml IV BID [facility] Last Admin: 06/19/18 10:16 Dose: 10 ml Documented by: Sodium Chloride (Sodium Chloride Flush Syringe 10 Ml) 10 ml IV PRN PRN PRN Reason: LINE FLUSH Sodium Hypochlorite (Dakin's Half Strength) 1 applic TP BID [facility] Last Admin: 06/19/18 09:36 Dose: 1 ampul Documented by: Review of Systems ROS unobtainable: due to mental status Exam - Constitutional Vitals: Temp Pulse Resp BP Pulse Ox 99.0 F 104 H 20 122/62 99 06/19/18 13:08 06/19/18 13:08 06/19/18 13:08 06/19/18 13:08 06/19/18 13:08 General appearance: Present: no acute distress - EENT Eyes: Present: EOM intact - Neck Neck: Present: supple - Respiratory Respiratory effort: normal - Extremities Extremities: abnormal - Abdominal General gastrointestinal: Present: deferred Male genitourinary: Present: deferred - Rectal Rectal Exam: deferred - Psychiatric Psychiatric: cooperative Results - Labs CBC & Chem 7: 06/17/18 05:43 06/19/18 08:14 Labs: Abnormal lab results 06/18/18 06/18/18 06/18/18 Range/Units 15:03 17:23 23:34 Sodium (137-145) mmol/L Carbon Dioxide (22-30) mmol/L Creatinine (0.8-1.5) mg/dL Glucose (75-100) mg/dL POC Glucose 116 H 113 H (70-105) Vancomycin Trough 36.5 H (5.0-20.0) ug/mL 06/19/18 06/19/18 Range/Units 08:14 11:56 Sodium 135 L (137-145) mmol/L Carbon Dioxide 21 L (22-30) mmol/L Creatinine 0.4 L (0.8-1.5) mg/dL Glucose 111 H (75-100) mg/dL POC Glucose 117 H (70-105) Vancomycin Trough (5.0-20.0) ug/mL - Imaging and Cardiology Venous US: report reviewed, image reviewed Assessment and Plan Patient with some vascular disease predominantly tibial in nature. This is unlikely to be the etiology of his wounds. Would recommend aggressive wound care.
[2018-06-20] MEDS: MAXIPIME/NS 2 GM/100 ML 2 GM/100 ML BAG IV SCH ×2 (05:22→16:40)
[2018-06-20] MEDS: D5/0.45NS 1,000 ML IV SCH (05:22)
--- NOTE | 2018-06-20 08:27 | Progress Note ---
Assessment and Plan Culture: Blood culture 06/13/2018 no growth so far. Urine culture 06/13/2018 Pseudomonas resistant to levaquin, sens to cefepime A/P: 67 y/o male retirement resident with history of stroke, dementia, CHF, COPD, diabetes, multiple chronic decubiti, previous MDR Pseudomonas UTI, previous pro state abscess and hypertension; readmitted on 06/13/2018 due to AMS and fever at 103: Sepsis: resolved; etio. likely UTI +/- multiple infected necrotic decubiti Multiple infected necrotic decubi ulcers: mainly left medial thigh, right medialcalf and sacral [id number]. Stage 3 pressure ulcers of the sacrum, left hip, right heel & right leg. - S/P Debridement of necrotic skin, SQ, muscle and fascia from the sacrum, left hip, right heel and right medial leg and debridement of necrotic skin & SQ - left heel UTI: due to Pseudomonas sensitive to cefepime. Previous Pseudomonas MDR only sens to zosyn/merren, treated with meropenem 1 g IV q8g total 21 days until 04/17/2018 Previous MRSA bacteremia: treated with 4 weeks of IV vancomycin until 03/27/20 18. PVD: art US showed occluded right posterior tibial artery, monophasic waveforms of the right anterior tibial artery suggestive of severe peripheral vascular disease and biphasic waveforms of the left anterior tibial artery suggestive of moderate to severe peripheral vascular disease. Aggressive wound care recommended. Plan: -completed 5 days of antibiotic therapy , will discontinue Cefepime and Vancomycin -OK to discharge to hospice from ID standpoint -continue wound vac Jacquie Jean Baptiste NP [facility] M: [phone] O:[phone] Subjective Date of service: 06/20/18 Principal diagnosis: infected decubit Interval history: Patient seen and examined, Patient is a poor historian, but able to follow simple commands. No family at bedside. Objective - Exam Narrative Exam: Constitutional: Alert, cooperative in no acute distress Head, Ears, Nose: Normocephalic, atraumatic. External ears, nose normal Eyes: Conjunctivae/corneas clear. No icterus. No ptosis. Neck: Supple, no meningeal signs Oral: no ulcers, no thrush Cardiovascular: S1, S2 normal. Respiratory: CTAbil GI: Soft, non-tender; bowel sounds normal. No peritoneal signs. +PEG Musculoskeletal: multiple decubiti Skin: No rash or abscess Hem/Lymphatic: No palpable cervical or supraclavicular nodes. No lymphangitis Psych: Mood ok. Affect normal Neurological: Awake, alert, confused, contracted legs. C - Constitutional Vitals: Vital Signs Temp Pulse Resp BP Pulse Ox 98.3 F 98 H 20 112/59 98 06/20/18 02:28 06/20/18 02:28 06/20/18 05:37 06/20/18 02:28 06/20/18 02:28 Temperature -Last 24 Hours Temperature 98.3 F Temperature 98.1 F Temperature 99.0 F - Labs CBC & Chem 7: 06/17/18 05:43 06/19/18 08:14 Labs: Abnormal lab results 06/19/18 06/19/18 06/20/18 Range/Units 08:14 11:56 01:00 Sodium 135 L (137-145) mmol/L Carbon Dioxide 21 L (22-30) mmol/L Creatinine 0.4 L (0.8-1.5) mg/dL Glucose 111 H (75-100) mg/dL POC Glucose 117 H 110 H (70-105) 06/20/18 Range/Units 05:56 Sodium (137-145) mmol/L Carbon Dioxide (22-30) mmol/L Creatinine (0.8-1.5) mg/dL Glucose (75-100) mg/dL POC Glucose 106 H (70-105)
[2018-06-20] MEDS: Centrum Liq PO SCH (10:02)
[2018-06-20] MEDS: KEPPRA FEEDTUBE SCH (10:02)
[2018-06-20] MEDS: NORVASC FEEDTUBE SCH (10:02)
--- NOTE | 2018-06-20 10:54 | Discharge Summary ---
Providers - Providers Date of Admission: 06/13/18 22:35 Attending physician: CAROLINE TRAMMELL MD 06/13/18 16:17 Consult to Wound/ET Nurse [CONS] Routine Reason For Exam: wound eval 06/14/18 08:35 Consult to Dietitian/Nutrition [CONS] Routine Physician Instructions: Reason For Exam: Reason for Consult: Write/Manage Tube Feeding 06/14/18 09:45 Consult to Physician [CONS] Routine Comment: Consulting Provider: YAHAIRA PORTILLO Physician Instructions: Reason For Exam: sepsis 06/18/18 12:10 Physical Therapy Evaluation and Treat [CONS] Routine Comment: High-Risk for wounds Reason For Exam: Max Assist/Placement Recommendation Needed 06/19/18 07:27 Consult to Physician [CONS] Routine Comment: Consulting Provider: FABRICIO WASHINGTON Physician Instructions: Reason For Exam: multple LE ulcers 06/19/18 14:19 Consult to Physician [CONS] Routine Comment: Consulting Provider: FLORENCIO ORTEGA Physician Instructions: Reason For Exam: PVD Primary care physician: TOM PAUL Hospitalization Reason for admission: sepsis, bedbound, multiple decubitus ulcer Condition: Poor Procedures: Bedside debridement Hospital course: 67 YO Male Shelter Facility Resident as [facility] with HTN, CVA, Obstructive Uropathy, Contracture, Decubitus Ulcers, VT, DM, OA, Seizure D isorder, COPD, Dementia, BPH presented to ED with complaints of fever. Patient was alert and oriented to person place but not to time. Patient was noted to have a temperature 103. EMS notified and patient transported to [facility] for further care and evaluation. Pt seen and evaluated in ED and found to have sepsis, Encephalopathy, and symptomatic anemia. Pt admitted to [facility] unit. No further history obtainable. The patient was discharged from the hospital following treatments for acute UTI with known history of multi drug resistant organisms in the past. Patient was admitted to the floor and was managed for sepsis, multiple pressure ulcers, metabolic encephalopathy and other multiple comorbidities. Patient was admitted multiple times. After discussion with the patient and his sister, they decided him to be on Hospice care and discharged to inpatient Hospice. Disposition: [facility] ([facility]) Time spent for discharge: 32 minutes - Discharge Diagnoses (1) Diabetes Status: Acute (2) HTN (hypertension) Status: Acute Qualifiers: Hypertension type: essential hypertension Qualified Code(s): I10 - Essential (primary) hypertension (3) Sepsis Status: Acute Qualifiers: Sepsis type: sepsis due to unspecified organism Qualified Code(s): A41.9 - Sepsis, unspecified organism (4) Dementia Status: Chronic Core Measure Documentation - Palliative Care Palliative Care/ Comfort Measures: Hospice Care - Core Measures Any of the following diagnoses?: none Exam - Physical Exam Narrative exam: Not in cardiopulmonary distress. The patient appeared well nourished and normally developed. Vital signs as documented. Head exam is unremarkable. No scleral icterus . Neck is without jugular venous distension, thyromegaly, or carotid bruits. Lungs are clear to auscultation. Cardiac exam reveals regular rate and Rhythm. First and second heart sounds normal. No murmurs, rubs or gallops. Abdominal exam reveals normal bowel sounds, no masses, no organomegaly and no aortic enlargement. Extremities multiple lower extremity ulcers. GLASS BEVELER: Alert and oriented 2. Patient is bedbound - Constitutional Vitals: Temp Pulse Resp BP Pulse Ox 98.9 F 83 18 130/63 97 06/20/18 07:32 06/20/18 10:02 06/20/18 07:32 06/20/18 10:02 06/20/18 07:32 Plan Activity: advance as tolerated Weight Bearing Status: Non-Weight Bearing Diet: advance as tolerated Wound: per wound nurse instructions Follow up with: TOM PAUL DO [Primary Care Provider] - 7 Days ROMULO IYER MD [Staff Physician] - 7 Days LAKESHIA JOLLEY MD [Staff Physician] - 7 Days
--- NOTE | 2018-06-20 11:40 | Progress Note ---
Assessment and Plan - Patient Problems (1) Decubitus ulcer Current Visit: Yes Status: Acute Plan to address problem: 1) Pt can f/u in the Wound Clinic. I will discuss placement of a diverting colostomy with his daughter. 2) Continue off loading. 3) Continue intense nutritional support. 4) Continue local wound care and debridement. Subjective Date of service: 06/20/18 Patient Reports: Positive: no new complaints Objective Vital Signs - 12hr 06/20/18 06/20/18 06/20/18 01:15 02:28 05:37 Temperature 98.3 F Pulse Rate 60 98 H Respiratory 20 Rate Respiratory 20 Rate [ Generalized] Blood Pressure 112/59 O2 Sat by Pulse 98 Oximetry 06/20/18 06/20/18 06/20/18 07:32 08:00 10:02 Temperature 98.9 F Pulse Rate 83 80 83 Respiratory 18 Rate Respiratory Rate [ Generalized] Blood Pressure 130/63 130/63 O2 Sat by Pulse 97 Oximetry - Labs 06/17/18 05:43 06/19/18 08:14
[2018-06-20 13:45] VITALS: BP 127/64
[2018-06-20] MEDS: SODIUM CHLORIDE FLUSH SYRINGE 10 ML IV SCH (16:40)
[2018-06-20] MEDS: DAKIN'S HALF STRENGTH TP SCH (16:40)
[2018-06-20] MEDS ORDERED: VANCOMYCIN 1,250 MG in NACL 0.9% 250ML 250 ML IV SCH (22:00)
== END 2018-06-20 18:38 | disposition hospice, inpatient (51) | DRG 853 ==
LOC: EDBD → ED 12:37 → 2B-ACE 22:35
PROVIDERS: ADMIT Internal Medicine; ATTEND Internal Medicine
PROC: 30233N1 Transfusion of Nonautologous Red Blood Cells into Peripheral Vein, Percutaneous Approach (ICD-10-PCS; 2018-06-14)
PROC: 0KBP0ZZ Excision of Left Hip Muscle, Open Approach (ICD-10-PCS; principal; 2018-06-19)
PROC: 0KBN0ZZ Excision of Right Hip Muscle, Open Approach (ICD-10-PCS; 2018-06-19)
PROC: 0KBV0ZZ Excision of Right Foot Muscle, Open Approach (ICD-10-PCS; 2018-06-19)
PROC: 0KBS0ZZ Excision of Right Lower Leg Muscle, Open Approach (ICD-10-PCS; 2018-06-19)
PROC: 0JBR0ZZ Excision of Left Foot Subcutaneous Tissue and Fascia, Open Approach (ICD-10-PCS; 2018-06-19)
DX: A41.9 Sepsis, unspecified organism (principal); L89.153 Pressure ulcer of sacral region, stage 3; L89.613 Pressure ulcer of right heel, stage 3; L89.223 Pressure ulcer of left hip, stage 3; G92 Toxic encephalopathy; N39.0 Urinary tract infection, site not specified; L89.622 Pressure ulcer of left heel, stage 2; L89.890 Pressure ulcer of other site, unstageable; L89.529 Pressure ulcer of left ankle, unspecified stage; L89.519 Pressure ulcer of right ankle, unspecified stage; F03.90 Unspecified dementia, unspecified severity, without behavioral disturbance, psychotic disturbance, mood disturbance, and anxiety; M19.90 Unspecified osteoarthritis, unspecified site; E03.9 Hypothyroidism, unspecified; I25.2 Old myocardial infarction; J44.9 Chronic obstructive pulmonary disease, unspecified; N40.0 Benign prostatic hyperplasia without lower urinary tract symptoms; D64.9 Anemia, unspecified; E11.51 Type 2 diabetes mellitus with diabetic peripheral angiopathy without gangrene; G40.909 Epilepsy, unspecified, not intractable, without status epilepticus; I50.9 Heart failure, unspecified; I11.0 Hypertensive heart disease with heart failure; I77.89 Other specified disorders of arteries and arterioles; Z83.3 Family history of diabetes mellitus; Z82.49 Family history of ischemic heart disease and other diseases of the circulatory system; Z86.73 Personal history of transient ischemic attack (TIA), and cerebral infarction without residual deficits
CPT/HCPCS: 36415; 71045; 80048; 80053; 80202; 81001; 82140; 82805; 82962; 83735; 84132; 85018; 85025; 85027; 86140; 86850; 86900; 86901; 86920; 87040; 87076; 87086; 87186; 87641; 93005; 93010; 93925; 94760; G0378; A6260; A9270-GY; J0692; J2185; J2543; J3370; J7030; J7040; J7050; P9016

== ENCOUNTER 2018-07-11 10:45 | Outpatient (CLI) | payer MEDICARE ==
[2018-07-11] MEDS ORDERED: XYLOCAINE TOPICAL 2% 30ML TP ONE (11:00)
[2018-07-11] MEDS ORDERED: XYLOCAINE TOPICAL 4% TP ONE (11:00)
[2018-07-11] MEDS ORDERED: SILVER NITRATE TP ONE (11:01)
== END 2018-07-11 10:46 | disposition home or self-care (01) ==
LOC: EDBD → WOUND 10:45
PROVIDERS: ATTEND Surgery
DX: L89.154 Pressure ulcer of sacral region, stage 4 (principal); L89.222 Pressure ulcer of left hip, stage 2; L89.622 Pressure ulcer of left heel, stage 2; L89.512 Pressure ulcer of right ankle, stage 2; L89.122 Pressure ulcer of left upper back, stage 2; L89.610 Pressure ulcer of right heel, unstageable; L89.890 Pressure ulcer of other site, unstageable; L97.213 Non-pressure chronic ulcer of right calf with necrosis of muscle; I10 Essential (primary) hypertension; E03.9 Hypothyroidism, unspecified; I67.89 Other cerebrovascular disease; F01.50 Vascular dementia, unspecified severity, without behavioral disturbance, psychotic disturbance, mood disturbance, and anxiety

== ENCOUNTER 2018-07-25 10:28 | Outpatient (CLI) | payer MEDICARE ==
[2018-07-25] MEDS ORDERED: XYLOCAINE TOPICAL 4% TP ONE (11:31)
[2018-07-25] MEDS ORDERED: SILVER NITRATE TP ONE (11:32)
== END 2018-07-25 10:29 | disposition home or self-care (01) ==
LOC: EDBD → WOUND 10:28
PROVIDERS: ATTEND Surgery
DX: L89.154 Pressure ulcer of sacral region, stage 4 (principal); L89.222 Pressure ulcer of left hip, stage 2; L89.622 Pressure ulcer of left heel, stage 2; L89.610 Pressure ulcer of right heel, unstageable; L89.891 Pressure ulcer of other site, stage 1; L97.213 Non-pressure chronic ulcer of right calf with necrosis of muscle; I67.89 Other cerebrovascular disease; F01.50 Vascular dementia, unspecified severity, without behavioral disturbance, psychotic disturbance, mood disturbance, and anxiety; L89.122 Pressure ulcer of left upper back, stage 2; L89.513 Pressure ulcer of right ankle, stage 3; I10 Essential (primary) hypertension; E03.9 Hypothyroidism, unspecified; S71.102A Unspecified open wound, left thigh, initial encounter; X58.XXXA Exposure to other specified factors, initial encounter; Y93.89 Activity, other specified; Y92.89 Other specified places as the place of occurrence of the external cause; Y99.8 Other external cause status
CPT/HCPCS: 97606

== ENCOUNTER 2018-07-29 18:26 | Inpatient (IN) | payer MEDICARE ==
[2018-07-29] MEDS ORDERED: NACL 0.9% 1000 ML 1,000 ML IV ONE ×4 (18:40→23:00)
--- NOTE | 2018-07-29 18:45 | Emergency Department Report ---
ED General Adult HPI - General Chief complaint: Altered Mental Status Stated complaint: AMS Time Seen by Provider: 07/29/18 18:31 Source: EMS Mode of arrival: Stretcher Limitations: Altered Mental Status, Physical Limitation - History of Present Illness Initial comments: Patient is 67 years old male, [facility] patient, history of dementia, congestive heart failure, CVA, contracted, diabetes, hypertension, decubitus ulcer and chronic Chaudhary catheter. Patient brought to the emergency room from the [facility] for evaluation of possible sepsis. Patient blood pressure is 60/36. With a temperature of 99.9. Patient is not communicating to give more information. Sepsis protocol initiated. Severity scale (0 -10): 3 - Related Data Home Medications Medication Instructions Recorded Confirmed Last Taken amLODIPine [Norvasc] 10 mg PO DAILY 06/02/16 06/13/18 Unknown Multivit-Min/Iron Fum/Folic AC 1 each PO DAILY 03/24/18 06/13/18 Unknown [Dnnqv-Dgglwti-Xqcnhbyt Tablet] Atorvastatin Calcium [Lipitor] 40 mg PO HS 06/13/18 06/13/18 Unknown Carvedilol [Coreg] 6.25 mg PO BID 06/13/18 06/13/18 Unknown Previous Rx's Medication Instructions Recorded Last Taken Type levETIRAcetam [Keppra] 500 mg PO BID #60 07/23/17 Unknown Rx Allergies Allergy/AdvReac Type Severity Reaction Status Date / Time tramadol Allergy Unknown Verified 07/29/18 18:39 ED Review of Systems ROS: Stated complaint: AMS Other details as noted in HPI Comment: Unobtainable due to pts medical conditions ED Past Medical Hx - Past Medical History Hx Hypertension: Yes Hx CVA: Yes Hx Heart Attack/AMI: Yes Hx Congestive Heart Failure: Yes Hx Diabetes: Yes (States does not treat) Hx Deep Vein Thrombosis: No Hx Pulmonary Embolism: No Hx GERD: No Hx Liver Disease: No Hx Renal Disease: No Hx Sickle Cell Disease: No Hx Arthritis: Yes Hx Headaches / Migraines: No Hx Seizures: Yes Hx Kidney Stones: Yes Hx Psychiatric Treatment: No Hx Asthma: No Hx COPD: Yes Hx Tuberculosis: No Hx Dementia: Yes Hx HIV: No Additional medical history: Benign prostatic hypertrophy - Surgical History Past Surgical History?: Yes Hx Coronary Stent: No Hx Open Heart Surgery: No Hx Pacemaker: No Hx Internal Defibrillator: No Hx Cholecystectomy: No Hx Appendectomy: No Hx Breast Surgery: No Additional Surgical History: debridement of sacral wound, gastrostomy - Social History Smoking Status: Unknown if ever smoked Substance Use Type: None - Medications Home Medications: Home Medications Medication Instructions Recorded Confirmed Last Taken Type amLODIPine [Norvasc] 10 mg PO DAILY 06/02/16 06/13/18 Unknown History levETIRAcetam [Keppra] 500 mg PO BID #60 07/23/17 06/13/18 Unknown Rx Multivit-Min/Iron Fum/Folic AC 1 each PO DAILY 03/24/18 06/13/18 Unknown History [Avniu-Qjhuwnq-Rddivvyn Tablet] Atorvastatin Calcium [Lipitor] 40 mg PO HS 06/13/18 06/13/18 Unknown History Carvedilol [Coreg] 6.25 mg PO BID 06/13/18 06/13/18 Unknown History ED Physical Exam - General Limitations: Altered Mental Status, Physical Limitation General appearance: alert, in no apparent distress - Head Head exam: Present: atraumatic, normocephalic - ENT ENT exam: Present: mucous membranes dry - Neck Neck exam: Present: normal inspection. Absent: tenderness, meningismus - Respiratory Respiratory exam: Present: normal lung sounds bilaterally - Cardiovascular Cardiovascular Exam: Present: regular rate - GI/Abdominal GI/Abdominal exam: Present: soft, normal bowel sounds, other (G-tube placement). Absent: distended, tenderness, guarding, rebound, rigid, organomegaly, mass, bruit, pulsatile mass - Extremities Exam Extremities exam: Present: normal inspection, other (contracted) - Neurological Exam Neurological exam: Present: alert - Skin Skin exam: Present: dry ED Course Vital Signs 07/29/18 07/29/18 07/29/18 18:35 19:01 19:15 Temperature 99.4 F Pulse Rate 90 86 83 Respiratory 16 34 H 28 H Rate Blood Pressure 60/29 61/31 76/37 O2 Sat by Pulse 93 99 100 Oximetry 07/29/18 07/29/18 07/29/18 19:45 20:01 20:15 Temperature Pulse Rate 84 85 86 Respiratory 27 H 20 25 H Rate Blood Pressure 83/47 81/48 80/40 O2 Sat by Pulse 98 99 98 Oximetry 07/29/18 07/29/18 20:31 20:45 Temperature Pulse Rate 84 84 Respiratory 29 H 45 H Rate Blood Pressure 82/48 70/42 O2 Sat by Pulse 98 96 Oximetry - Reevaluation(s) Reevaluation #1: 07/29/18 23:35 Patient evaluated by me multiple times. - Central Line Placement Right Femoral Consent Obtained: emergent situation Time Out Performed: Yes Patient Placed on Monitor/Pulse Ox: Yes MD Prep: mask, gown, gloves Central Line Prep: Povidone-Iodine 1%, Chlorhexidine scrub, sterile drapes applied Local Anesthesia Used: Lidocaine 2% Central Line Lumen Inserted: triple Bloods Obtained for Lab: No Central Line Position: good blood return, all ports aspirated, flus, sutured in place with 2-0 Dressing Applied: Tegaderm, sterile gauze/tape Patient Tolerated Procedure: well, no complications Complications: none ED Medical Decision Making - Lab Data Result diagrams: 07/29/18 18:50 07/29/18 18:50 - Radiology Data Radiology results: report reviewed Referring Physician: JEAN-CLAUDE HERNANDEZ Patient Name: LORI SHARMA Date of : 1950 Sex: Male Report Date: 2018-07-29 Report Status: Finalized Findings [facility] [address] [place] [address] XRay Report Signed Patient: LORI SHARMA MR #: [id number] : 1950 Acct:[id number] Age/Sex: 67 / M ADM Date: 07/29/18 Loc: ED Attending Dr: Ordering Physician: JEAN-LCAUDE HERNANDEZ Date of Service: 07/29/18 Procedure(s): XR chest 1V ap Accession Number(s): [id number] cc: JEAN-CLAUDE HERNANDEZ Fluoro Time In Minutes: PROCEDURES: XR CHEST 1V AP TECHNIQUE: AP portable view of the chest. The patient's head obscures the right apex HISTORY: sepsis COMPARISON: CXR 06/13/2018 FINDINGS: Lines, tubes, and devices: N/A Lungs and pleura: Trachea is normal in position. Linear atelectasis in the right lung base is noted. Lungs are otherwise clear of consolidation, pleural effusion, vascular congestion, or pneumothorax. Cardiomediastinal silhouette: Cardiac and mediastinal silhouettes are unremarkable. Other: Bony structures are intact. IMPRESSION: Linear atelectasis in the right lung base This document is electronically signed by Chelsea Lee MD., July 29 2018 08:12:35 PM ET Transcribed By: [facility] Dictated By: CHELSEA LEE MD Electronically Authenticated By: CHELSEA LEE MD Signed Date/Time: 07/29/182013 DD/ 37 TD/TT: 07/29/18 191 Referring Physician: JEAN-CLAUDE HERNANDEZ Patient Name: LORI SHARMA Date of : 1950 Sex: Male Report Date: 2018-07-29 Report Status: [place] [address] Cat Scan Report Signed Patient: LORI SHARMA MR #: [id number] : 1950 Acct:[id number] Age/Sex: 67 / M ADM Date: 07/29/18 Loc: ED Attending Dr: Ordering Physician: JEAN-CLAUDE HERNANDEZ Date of Service: 07/29/18 Procedure(s): CT abdomen pelvis wo con Accession Number(s): [id number] cc: JEAN-CLAUDE HERNANDEZ PROCEDURE: CT ABDOMEN PELVIS WO CON TECHNIQUE: Computerized axial tomography of the abdomen was performed without intravenous contrast. This study is performed without intravascular contrast material and its sensitivity for abdominal and pelvic pathology, including neoplasms, inflammation, abscess, free fluid, thrombosis, arterial dissection and infarction, is reduced compared with a contrast enhanced study. CT DOSE LENGTH PRODUCT: mGycm HISTORY: ABDOMINAL PAIN/elevated liver enzymes COMPARISONS: 02/27/2018 . FINDINGS: Limited study due to suboptimal positioning. Moderate cardiomegaly is noted. Atelectatic changes are noted in the right lower lobe. 2 well-defined cystic lesions are noted larger measuring 8 x 5 x 6.2 cm occupying the second and third segments and the smaller measuring 5.2 x 4.9 cm located in segment 4. Spleen, pancreas and adrenal glands are within normal limits. There are 2 cystic lesions in the right kidney larger measuring 2.5 x 1.7 cm located in the midpole. There are no calculi or hydronephrosis. Urinary bladder otto aren't thickened. A Chaudhary bulb in situ. There is no free fluid or free air. Gallbladder is contracted. Small bowel loops are within normal limits. Appendix is not distinctly visualized. There are areas of soft tissue ossification noted surrounding bilateral hip joints with evidence of an old healed fracture deformity right femoral neck. Irregular areas of soft tissue air are identified surrounding the left hip joint. Moderate degree scoliotic deformity is again noted. IMPRESSION: Left hip joint findings are suspicious for septic arthritis secondary to pos sible decubitus ulcer. Thickened urinary bladder otto are suspicious for cystitis. Cystic lesion since left lobe liver and right kidney are stable and unchanged. Moderate degree cardiomegaly This document is electronically signed by Geronimo Landeros MD., July 29 2018 11:25:17 PM ET Transcribed By: [facility] Dictated By: GERONIMO LANDEROS Electronically Authenticated By: GERONIMO LANDEROS Signed Date/Time: 07/29/182326 DD/ 56 TD/TT: 07/29/182257 - Medical Decision Making Patient is 67 years old male, [facility] patient, history of dementia, congestive heart failure, CVA, contracted, diabetes, hypertension, decubitus ulcer and chronic Chaudhary catheter. Patient brought to the emergency room from the [facility] for evaluation of possible sepsis. Patient blood pressure is 60/36. With a temperature of 99.9. Patient is not communicating to give more information. Sepsis protocol initiated. Patient received 3 L of normal saline with no significant improvement in his blood pressure. I placed a right femoral central line for vasopressor and more resuscitation. I discussed the patient is Dr. magi Connor, She agreed to admit the patient to medical service. Critical Care Time: Yes Critical care time in (mins) excluding proc time.: 30 Critical care attestation.: If time is entered above; I have spent that time in minutes in the direct care of this critically ill patient, excluding procedure time. ED Disposition Clinical Impression: Septic shock, UTI (urinary tract infection), Acute renal failure Disposition: OP ADMIT IP TO THIS HOSP Is pt being admited?: Yes Condition: Stable Referrals: PRIMARY CARE, [Primary Care Provider] - 3-5 Days
[2018-07-29 19:04] LABS: Basophils # (Auto) 0.1 K/mm3 (0.0-0.1); Basophils % (Auto) 0.8 % (0.0-1.8); Eosinophils % (Auto) 0.3 % (0.0-4.3); Hematocrit 23.3 % (35.5-45.6); Hemoglobin 6.9 gm/dl (11.8-15.2); Lymphocytes # (Auto) 1.4 K/mm3 (1.2-5.4); Lymphocytes % (Auto) 9.4 % (13.4-35.0); Mean Corpuscular HGB Conc 29 % (32-34); Mean Corpuscular Volume 89 fl (84-94); Monocytes # (Auto) 1.6 K/mm3 (0.0-0.8); Monocytes % (Auto) 11.1 % (0.0-7.3); Platelet Count 469 K/mm3 (140-440); Red Cell Distribution Width 17.6 % (13.2-15.2)
[2018-07-29 19:25] LABS: Albumin 2.3 g/dL (3.9-5); Calcium 8.5 mg/dL (8.4-10.2)
[2018-07-29] MEDS ORDERED: ZOSYN/NS 3.375GM/50ML 3.375 GM/50 ML BAG IV ONE (19:40)
--- NOTE | 2018-07-29 20:14 | XRay Report ---
PROCEDURES: XR CHEST 1V AP TECHNIQUE: AP portable view of the chest. The patient's head obscures the right apex HISTORY: sepsis COMPARISON: CXR 06/13/2018 FINDINGS: Lines, tubes, and devices: N/A Lungs and pleura: Trachea is normal in position. Linear atelectasis in the right lung base is noted. Lungs are otherwise clear of consolidation, pleural effusion, vascular congestion, or pneumothorax. Cardiomediastinal silhouette: Cardiac and mediastinal silhouettes are unremarkable. Other: Bony structures are intact. IMPRESSION: Linear atelectasis in the right lung base This document is electronically signed by Chelsea Lee MD., July 29 2018 08:12:35 PM ET
[2018-07-29 21:58] LABS: Bacteria,Urine 4+ /HPF (Negative); Bilirubin,Urine NEG (Negative); Blood,Urine MOD (Negative); Color,Urine Amber (Yellow); Mucus,Urine FEW /HPF
[2018-07-29 21:59] LABS: RBC,Urine > 182.0 /HPF (0.0-6.0); WBC,Urine > 182.0 /HPF (0.0-6.0)
[2018-07-29] MEDS: LEVOPHED 8 MG in NACL 0.9% 250ML 242 ML IV SCH (23:14)
--- NOTE | 2018-07-29 23:27 | Cat Scan Report ---
PROCEDURE: CT ABDOMEN PELVIS WO CON TECHNIQUE: Computerized axial tomography of the abdomen was performed without intravenous contrast. This study is performed without intravascular contrast material and its sensitivity for abdominal and pelvic pathology, including neoplasms, inflammation, abscess, free fluid, thrombosis, arterial disse ction and infarction, is reduced compared with a contrast enhanced study. CT DOSE LENGTH PRODUCT: mGycm HISTORY: ABDOMINAL PAIN/elevated liver enzymes COMPARISONS: 02/27/2018 . FINDINGS: Limited study due to suboptimal positioning. Moderate cardiomegaly is noted. Atelectatic changes are noted in the right lower lobe. 2 well-defined cystic lesions are noted larger measuring 8 x 5 x 6.2 c m occupying the second and third segments and the smaller measuring 5.2 x 4.9 cm located in segment 4 . Spleen, pancreas and adrenal glands are within normal limits. There are 2 cystic lesions in the rig ht kidney larger measuring 2.5 x 1.7 cm located in the midpole. There are no calculi or hydronephrosi s. Urinary bladder otto aren't thickened. A Chaudhary bulb in situ. There is no free fluid or free air. Gallbladder is contracted. Small bowel loops are within normal limits. Appendix is not distinctly vis ualized. There are areas of soft tissue ossification noted surrounding bilateral hip joints with evid ence of an old healed fracture deformity right femoral neck. Irregular areas of soft tissue air are i dentified surrounding the left hip joint. Moderate degree scoliotic deformity is again noted. IMPRESSION: Left hip joint findings are suspicious for septic arthritis secondary to possible decubitus ulcer. Thickened urinary bladder otto are suspicious for cystitis. Cystic lesion since left lobe liver and right kidney are stable and unchanged. Moderate degree cardiomegaly This document is electronically signed by North Landeros MD., July 29 2018 11:25:17 PM ET
--- NOTE | 2018-07-29 23:42 | XRay Report ---
PROCEDURE: XR CHEST 1V AP A portable AP chest radiograph was obtained at 07/30/2018 3:36 [employer]OR [employer]. CPT 87170 HISTORY: Chest pain COMPARISONS: 07/29/2018. FINDINGS: Grossly limited study due to suboptimal positioning. Right upper lung is not well-visualized. Right l ower lung and left lung appear unremarkable. Pleural spaces.. Cardiac size is within normal limits. IMPRESSION: No obvious acute pulmonary process. This document is electronically signed by North Landeros MD., July 29 2018 11:40:13 PM ET
--- NOTE | 2018-07-29 23:45 | History and Physical Report ---
History of Present Illness Date of examination: 07/30/18 History of present illness: 67 year old man with dementia, hypertension, CHF, seizure, CAD , BPH, diabetes was sent to the emergency room from [place] because he was hypotensive with systolic blood pressure 60S. In the emergency room he was given IV fluid, star volodymyr on IV Levophed drip AND antibiotic. His Chaudhary was changed in the emergency room. He is unable to provide a history, Review of system is unobtainable. [facility] admission in May show that patient has been anemic, he was transfused blood AST MEDICAL HISTORY: dementia, hypertension, CHF, seizure, CAD , BPH, diabetes PAST SURGICAL HISTORY: unknown FAMILY HISTORY: Hypertension SOCIAL HISTORY: [place] resident, no smoking, drinking, drugs Medications and Allergies Allergies Allergy/AdvReac Type Severity Reaction Status Date / Time tramadol Allergy Unknown Verified 07/29/18 18:39 Home Medications Medication Instructions Recorded Confirmed Last Taken Type amLODIPine [Norvasc] 10 mg NGTUBE DAILY 06/02/16 07/30/18 Unknown History Multivit-Min/Iron Fum/Folic AC 1 each PO DAILY 03/24/18 07/30/18 Unknown History [Sjoor-Edppxlu-Gvkopbga Tablet] Carvedilol [Coreg] 6.25 mg PO Q12H 06/13/18 07/30/18 Unknown History Acetaminophen 650 mg NGTUBE Q6H PRN 07/30/18 07/30/18 Unknown History Apixaban [Eliquis] 2.5 mg PO Q12H 07/30/18 07/30/18 Unknown History AtorvaSTATin [Lipitor] 40 mg NGTUBE QHS 07/30/18 07/30/18 Unknown History Dutasteride 0.5 mg NGTUBE QAM 07/30/18 07/30/18 Unknown History Furosemide [Lasix TAB] 40 mg PO QDAY 07/30/18 07/30/18 Unknown History Ipratropium/Albuterol Sulfate 1 ampul IH BID 07/30/18 07/30/18 Unknown History [DUONEB *Not for PRN Use*] Lisinopril [Zestril TAB] 40 mg PO QDAY 07/30/18 07/30/18 Unknown History Oxycodone HCl/Acetaminophen 1 each PO Q8HR PRN 07/30/18 07/30/18 Unknown History [Percocet 7.5/325 mg] Tamsulosin [Flomax] 0.4 mg PO QDAY 07/30/18 07/30/18 Unknown History Vit C/Ascorbate Calcium,Sodium 500 mg NGTUBE BID 07/30/18 07/30/18 Unknown History [Vitamin C 500 mg/15 ml Liquid] Zinc Sulfate 220 mg NGTUBE QDAY 07/30/18 07/30/18 Unknown History diphenhydrAMINE [Benadryl CAP] 25 mg NGTUBE Q6H PRN 07/30/18 07/30/18 Unknown History levETIRAcetam [Keppra INJ] 500 mg PO Q12H 07/30/18 07/30/18 Unknown History Active Meds: Active Medications Norepinephrine 8 mg/ Sodium (Chloride) 250 mls @ 3.75 mls/hr IV TITR NORA; Protocol Last Titration: 07/29/18 23:27 Dose: 4 mcg/min, 7.5 mls/hr Documented by: Exam - Physical Exam Narrative exam: Gen. appearance: Patient lying in bed, no apparent distress HEENT: Normocephalic, atraumatic, pupils equally round and reactive to light, extraocular movement intact, and no sclericterus,. No JVD or thyromegaly or nodule,neck supple, no carotid bruit ,mucous membranes dry, no exudate or erythema Heart: S1, S2, regular rate and rhythm Lungs: Clear to auscultation bilaterally, breathing comfortable Abdomen: Positive bowel sounds, nontender, nondistended, no organomegaly Extremity:contracted, Multiple ulcers, No edema, cyanosis, clubbing Skin: No rash, nodules, warm, dry Neuro: difficult to assess - Constitutional Vitals: Temp Pulse Resp BP Pulse Ox 99.4 F 84 45 H 70/42 96 07/29/18 18:35 07/29/18 20:45 07/29/18 20:45 07/29/18 20:45 07/29/18 20:45 Results - Labs CBC & Chem 7: 07/30/18 03:26 07/30/18 03:26 Labs: Abnormal lab results 07/29/18 07/29/18 07/29/18 Range/Units 18:50 18:50 18:50 WBC 14.4 H (4.5-11.0) K/mm3 RBC 2.60 L (3.65-5.03) M/mm3 Hgb 6.9 L (11.8-15.2) gm/dl Hct 23.3 L (35.5-45.6) % MCH 26 L (28-32) pg MCHC 29 L (32-34) % RDW 17.6 H (13.2-15.2) % Plt Count 469 H (140-440) K/mm3 Lymph % (Auto) 9.4 L (13.4-35.0) % Daniels % (Auto) 11.1 H (0.0-7.3) % Daniels # 1.6 H (0.0-0.8) K/mm3 Seg Neutrophils % 78.4 H (40.0-70.0) % Seg Neutrophils # 11.3 H (1.8-7.7) K/mm3 Sodium 146 H (137-145) mmol/L Potassium 5.8 H (3.6-5.0) mmol/L Carbon Dioxide 19 L (22-30) mmol/L BUN 91 H (9-20) mg/dL Creatinine 3.6 H (0.8-1.5) mg/dL Glucose 137 H (75-100) mg/dL Lactic Acid 3.90 H* (0.7-2.0) mmol/L AST 116 H (5-40) units/L ALT 122 H (7-56) units/L Alkaline Phosphatase 511 H (35-129) units/L Albumin 2.3 L (3.9-5) g/dL Urine WBC (Auto) (0.0-6.0) /HPF 07/29/18 07/29/18 Range/Units 21:25 21:33 WBC (4.5-11.0) K/mm3 RBC (3.65-5.03) M/mm3 Hgb (11.8-15.2) gm/dl Hct (35.5-45.6) % MCH (28-32) pg MCHC (32-34) % RDW (13.2-15.2) % Plt Count (140-440) K/mm3 Lymph % (Auto) (13.4-35.0) % [place] % (Auto) (0.0-7.3) % Daniels # (0.0-0.8) K/mm3 Seg Neutrophils % (40.0-70.0) % Seg Neutrophils # (1.8-7.7) K/mm3 Sodium (137-145) mmol/L Potassium (3.6-5.0) mmol/L Carbon Dioxide (22-30) mmol/L BUN (9-20) mg/dL Creatinine (0.8-1.5) mg/dL Glucose (75-100) mg/dL Lactic Acid 2.80 H* (0.7-2.0) mmol/L AST (5-40) units/L ALT (7-56) units/L Alkaline Phosphatase (35-129) units/L Albumin (3.9-5) g/dL Urine WBC (Auto) > 182.0 H (0.0-6.0) /HPF - Imaging and Cardiology CT scan - abdomen: report reviewed CT scan - pelvis: report reviewed Assessment and Plan Assessment Septic Shock with an organ dysfunction Possible septic arthritis of the left hip UTI Anemia, acute on chronic, on eliquis Acute Renal failure Hypernatremia Lower extremity wounds CHF, stable CAD COPD HTN BPH seizure Diabetes Plan Admit to medicine Continue levophed, follow cultures, renal function Hold nephrotoxic agents start zosyn, give a dose of vanco Consult critical care, renal, ortho Check stool for blood, transfuse packed red blood cells, hold eliquis Start outpatient medications, consult wound care DVT prophalaxis
[2018-07-30] MEDS ORDERED: TYLENOL PR ONE ×2 (00:36→00:42)
[2018-07-30 01:09] LABS: Calcium 8.6 mg/dL (8.4-10.2)
[2018-07-30] MEDS ORDERED: SODIUM CHLORIDE FLUSH SYRINGE 10 ML IV PRN (02:50)
[2018-07-30] MEDS ORDERED: ZOFRAN IV PRN (02:50)
[2018-07-30] MEDS ORDERED: VANCOMYCIN/NS 1 GM/250 ML 1 GM/250 ML BAG IV ONE (02:54)
[2018-07-30] MEDS ORDERED: NACL 0.9% 500 ML 500 ML IV ONE (02:54)
[2018-07-30] MEDS ORDERED: D50W (25GM) Syringe IV PRN (02:56)
[2018-07-30] MEDS ORDERED: NACL 0.9% 1000 ML 1,000 ML IV SCH (03:00)
[2018-07-30] MEDS ORDERED: NACL 0.9% 500 ML 500 ML ONE (03:11)
[2018-07-30] MEDS: LEVOPHED 8 MG in NACL 0.9% 250ML 242 ML IV SCH ×4 (04:27→22:45)
[2018-07-30 04:28] LABS: Basophils % (Auto) 0.2 % (0.0-1.8); Eosinophils % (Auto) 0.1 % (0.0-4.3); Hematocrit 20.8 % (35.5-45.6); Hemoglobin 6.6 gm/dl (11.8-15.2); Lymphocytes # (Auto) 0.6 K/mm3 (1.2-5.4); Lymphocytes % (Auto) 3.6 % (13.4-35.0); Mean Corpuscular HGB Conc 32 % (32-34); Mean Corpuscular Volume 84 fl (84-94); Monocytes # (Auto) 2.1 K/mm3 (0.0-0.8); Monocytes % (Auto) 12.2 % (0.0-7.3); Platelet Count 422 K/mm3 (140-440); Red Blood Count 2.49 M/mm3 (3.65-5.03); Red Cell Distribution Width 17.2 % (13.2-15.2)
[2018-07-30 04:56] LABS: Calcium 7.9 mg/dL (8.4-10.2)
[2018-07-30] MEDS ORDERED: ZOSYN/NS 3.375GM/50ML 3.375 GM/50 ML BAG IV SCH (06:00)
[2018-07-30] MEDS: ZOSYN/NS 2.25 GM/50ML 2.25 GM/50 ML BAG IV SCH ×3 (06:11→21:55)
[2018-07-30] MEDS: KEPPRA PO SCH (07:06)
[2018-07-30] MEDS ORDERED: LEVOPHED DRIP 4 MG/NS 250 ML 0 MG/0 ML BAG IV ONE (09:40)
--- NOTE | 2018-07-30 09:50 | Consultation ---
History of Present Illness - Reason for Consult Consult date: 07/30/18 acute renal failure - History of Present Illness The patient is a 67 YO male with history significant for Dementia, DM, Hyp ertension, CHF, seizure, CAD, BPH, Anemia, chronic bright catheter and [place] resident who was sent to [facility] emergency room with hypotension. On arrival his BP was 60/29. Unable to obtain any history from patient at this time and there was no family member at the bedside. In the emergency room he was given IV fluid bolus, started on IV Levophed drip and antibiotic. His Bright was changed in the emergency room. Currently patient is in ICU. H/o previous hospital admissions secondary to anemia, hypotension, sepsis from MDR Pseudomonas and multiple infected decubti. He has received one unit of PRBC's. Creatinine was 3.6 on admission. Nephrology was consulted for further evaluation of MÓNICA. Past History Past Medical History: anemia, diabetes, heart failure, hypertension, seizures, other (Dementia, CAD, BPH, chronic bright catheter and [place] ) Medications and Allergies Allergies Allergy/AdvReac Type Severity Reaction Status Date / Time tramadol Allergy Unknown Verified 07/29/18 18:39 Home Medications Medication Instructions Recorded Confirmed Last Taken Type amLODIPine [Norvasc] 10 mg NGTUBE DAILY 06/02/16 07/30/18 Unknown History Multivit-Min/Iron Fum/Folic AC 1 each PO DAILY 03/24/18 07/30/18 Unknown History [Nfbxi-Dikjllb-Hifjnpcu Tablet] Carvedilol [Coreg] 6.25 mg PO Q12H 06/13/18 07/30/18 Unknown History Acetaminophen 650 mg NGTUBE Q6H PRN 07/30/18 07/30/18 Unknown History Apixaban [Eliquis] 2.5 mg PO Q12H 07/30/18 07/30/18 Unknown History AtorvaSTATin [Lipitor] 40 mg NGTUBE QHS 07/30/18 07/30/18 Unknown History Dutasteride 0.5 mg NGTUBE QAM 07/30/18 07/30/18 Unknown History Furosemide [Lasix TAB] 40 mg PO QDAY 07/30/18 07/30/18 Unknown History Ipratropium/Albuterol Sulfate 1 ampul IH BID 07/30/18 07/30/18 Unknown History [DUONEB *Not for PRN Use*] Lisinopril [Zestril TAB] 40 mg PO QDAY 07/30/18 07/30/18 Unknown History Oxycodone HCl/Acetaminophen 1 each PO Q8HR PRN 07/30/18 07/30/18 Unknown History [Percocet 7.5/325 mg] Tamsulosin [Flomax] 0.4 mg PO QDAY 07/30/18 07/30/18 Unknown History Vit C/Ascorbate Calcium,Sodium 500 mg NGTUBE BID 07/30/18 07/30/18 Unknown History [Vitamin C 500 mg/15 ml Liquid] Zinc Sulfate 220 mg NGTUBE QDAY 07/30/18 07/30/18 Unknown History diphenhydrAMINE [Benadryl CAP] 25 mg NGTUBE Q6H PRN 07/30/18 07/30/18 Unknown History levETIRAcetam [Keppra INJ] 500 mg PO Q12H 07/30/18 07/30/18 Unknown History Active Meds: Active Medications Acetaminophen (Tylenol) 650 mg PO Q4H PRN PRN Reason: Pain MILD(1-3)/Fever >100.5/PRICE Ascorbic Acid (Vitamin C) 500 mg PO BID NORA Atorvastatin Calcium (Lipitor) 40 mg PO QHS NORA Dextrose (D50w (25gm) Syringe) 50 ml IV PRN PRN PRN Reason: Hypoglycemia Norepinephrine 8 mg/ Sodium (Chloride) 250 mls @ 3.75 mls/hr IV TITR NORA; Protocol Last Titration: 07/30/18 05:05 Dose: 26 mcg/min, 48.75 mls/hr Documented by: Piperacillin Sod/Tazobactam Sod (Zosyn/Ns 2.25 Gm/50ml) 2.25 gm in 50 mls @ 100 mls/hr IV Q8HR [facility] Last Admin: 07/30/18 06:11 Dose: 100 mls/hr Documented by: Levetiracetam (Keppra) 500 mg PO Q12H [facility] Last Admin: 07/30/18 07:06 Dose: 500 mg Documented by: Miscellaneous Medication (Dutasteride [Dutasteride]) 0.5 mg NGTUBE QAM NORA Ondansetron HCl (Zofran) 4 mg IV Q8H PRN PRN Reason: Nausea And Vomiting Sodium Chloride (Sodium Chloride Flush Syringe 10 Ml) 10 ml IV BID NORA Sodium Chloride (Sodium Chloride Flush Syringe 10 Ml) 10 ml IV PRN PRN PRN Reason: LINE FLUSH Tamsulosin HCl (Flomax) 0.4 mg PO QDAY NORA Zinc Sulfate (Zinc Sulfate) 220 mg PO QDAY NORA Review of Systems ROS unobtainable: due to mental status Exam - Vital Signs Vital signs: Vital Signs Temp Pulse Resp BP Pulse Ox 99.4 F 90 16 60/29 93 07/29/18 18:35 07/29/18 18:35 07/29/18 18:35 07/29/18 18:35 07/29/18 18:35 - General Appearance General appearance: well-developed, appears stated age, frail, other (not in distress) EENT: ATNC Neck: Present: trachea midline Respiratory: Clear to Ascultation Heart: regular, S1S2, no murmurs Gastrointestinal: Present: normoactive bowel sounds, other (bright catheter). Absent: tenderness Integumentary: ulcer (multiple) Neurologic: other (opens eyes, not following any command) Musculoskeletal: Present: other (contractures noted) Results - Lab Results 07/30/18 10:28 07/30/18 03:26 Most recent lab results Calcium 7.9 mg/dL (8.4-10.2) L 07/30/18 03:26 - Image Kidney/bladder ultrasound: other Assessment and Plan 1. Acute kidney injury: Vasomotor / hemodynamic MÓNICA in the setting of hypotension, sepsis and volume depletion. Urine lytes and Eos. CT abdomen was negative for hydronephrosis. Continue IV fluids. Monitor renal function. Renal prognosis is guarded. Avoid nephrotoxic agents. Meds dosage based on GFR. 2. FEN: Hypernatremia, 1/2 NS. Metabolic acidosis. Monitor lytes. 3. Sepsis with shock: On Levophed. 4. Anemia: S/p PRBC. 5. Multiple decubitus ulcers. 6. Shock Liver.
[2018-07-30] MEDS ORDERED: LOVENOX SUB-Q SCH (10:00)
[2018-07-30] MEDS ORDERED: FLOMAX PO SCH (10:00)
[2018-07-30] MEDS ORDERED: DUTASTERIDE 0.5 MG NGTUBE SCH (10:00)
[2018-07-30 10:55] LABS: Hematocrit 25.8 % (35.5-45.6); Hemoglobin 8.1 gm/dl (11.8-15.2)
[2018-07-30] MEDS: VITAMIN C PO SCH ×2 (10:58→22:05)
[2018-07-30] MEDS: SODIUM CHLORIDE FLUSH SYRINGE 10 ML IV SCH ×2 (10:58→21:50)
[2018-07-30] MEDS ORDERED: NACL 0.9% 1000 ML 1,000 ML IV ONE (11:00)
[2018-07-30] MEDS: ZINC SULFATE PO SCH (11:06)
--- NOTE | 2018-07-30 11:19 | Consultation ---
History of Present Illness - Reason for Consult Consult date: 07/30/18 Hypotension, Anemia Requesting physician: LUBNA LICEA - History of Present Illness 67 y/o male, with multiple admits to the hospital before secondary to anemia and hypotension along with sepsis from MDR Pseudomonas and multiple infected decubti admitted with anemia and hypotension. Currently patient is on levophed at 26 mcgs. He has received one unit of PRBC's but has 5 total ordered. No family is present at bedside. Past History Past Medical History: anemia, diabetes, heart failure, hypertension, other (infected decubs, MDR Pseudomonas, MRSA, contractures) Past Surgical History: Other (debridement) Social history: other ([facility]) Medications and Allergies Allergies Allergy/AdvReac Type Severity Reaction Status Date / Time tramadol Allergy Unknown Verified 07/29/18 18:39 Home Medications Medication Instructions Recorded Confirmed Last Taken Type amLODIPine [Norvasc] 10 mg NGTUBE DAILY 06/02/16 07/30/18 Unknown History Multivit-Min/Iron Fum/Folic AC 1 each PO DAILY 03/24/18 07/30/18 Unknown History [Romxc-Xjyctzc-Rxxahvgf Tablet] Carvedilol [Coreg] 6.25 mg PO Q12H 06/13/18 07/30/18 Unknown History Acetaminophen 650 mg NGTUBE Q6H PRN 07/30/18 07/30/18 Unknown History Apixaban [Eliquis] 2.5 mg PO Q12H 07/30/18 07/30/18 Unknown History AtorvaSTATin [Lipitor] 40 mg NGTUBE QHS 07/30/18 07/30/18 Unknown History Dutasteride 0.5 mg NGTUBE QAM 07/30/18 07/30/18 Unknown History Furosemide [Lasix TAB] 40 mg PO QDAY 07/30/18 07/30/18 Unknown History Ipratropium/Albuterol Sulfate 1 ampul IH BID 07/30/18 07/30/18 Unknown History [DUONEB *Not for PRN Use*] Lisinopril [Zestril TAB] 40 mg PO QDAY 07/30/18 07/30/18 Unknown History Oxycodone HCl/Acetaminophen 1 each PO Q8HR PRN 07/30/18 07/30/18 Unknown History [Percocet 7.5/325 mg] Tamsulosin [Flomax] 0.4 mg PO QDAY 07/30/18 07/30/18 Unknown History Vit C/Ascorbate Calcium,Sodium 500 mg NGTUBE BID 07/30/18 07/30/18 Unknown History [Vitamin C 500 mg/15 ml Liquid] Zinc Sulfate 220 mg NGTUBE QDAY 07/30/18 07/30/18 Unknown History diphenhydrAMINE [Benadryl CAP] 25 mg NGTUBE Q6H PRN 07/30/18 07/30/18 Unknown History levETIRAcetam [Keppra INJ] 500 mg PO Q12H 07/30/18 07/30/18 Unknown History Active Meds: Active Medications Acetaminophen (Tylenol) 650 mg PO Q4H PRN PRN Reason: Pain MILD(1-3)/Fever >100.5/PRICE Ascorbic Acid (Vitamin C) 500 mg PO BID [facility] Last Admin: 07/30/18 10:58 Dose: 500 mg Documented by: Dextrose (D50w (25gm) Syringe) 50 ml IV PRN PRN PRN Reason: Hypoglycemia Norepinephrine 8 mg/ Sodium (Chloride) 250 mls @ 3.75 mls/hr IV TITR [facility]; Protocol Last Titration: 07/30/18 11:01 Dose: 28 mcg/min, 52.5 mls/hr Documented by: Piperacillin Sod/Tazobactam Sod (Zosyn/Ns 2.25 Gm/50ml) 2.25 gm in 50 mls @ 100 mls/hr IV Q8HR [facility] Last Admin: 07/30/18 06:11 Dose: 100 mls/hr Documented by: Sodium Chloride (Nacl 0.9% 1000 Ml) 1,000 mls @ 999 mls/hr IV ONCE ONE Stop: 07/30/18 12:00 Last Admin: 07/30/18 10:59 Dose: 999 mls/hr Documented by: Levetiracetam (Keppra) 500 mg PO Q12H [facility] Last Admin: 07/30/18 07:06 Dose: 500 mg Documented by: Ondansetron HCl (Zofran) 4 mg IV Q8H PRN PRN Reason: Nausea And Vomiting Sodium Chloride (Sodium Chloride Flush Syringe 10 Ml) 10 ml IV BID [facility] Last Admin: 07/30/18 10:58 Dose: 10 ml Documented by: Sodium Chloride (Sodium Chloride Flush Syringe 10 Ml) 10 ml IV PRN PRN PRN Reason: LINE FLUSH Tamsulosin HCl (Flomax) 0.4 mg PO QDAY NORA Zinc Sulfate (Zinc Sulfate) 220 mg PO QDAY [facility] Review of Systems ROS unobtainable: due to mental status Exam - Constitutional Vitals: Temp Pulse Resp BP Pulse Ox 98.1 F 63 21 115/50 100 07/30/18 08:04 07/30/18 08:31 07/30/18 08:31 07/30/18 08:31 07/30/18 08:31 General appearance: Present: no acute distress, cachectic - EENT Eyes: Present: PERRL, EOM intact ENT: hearing intact - Neck Neck: Present: supple - Respiratory Respiratory effort: normal Respiratory: bilateral: CTA - Cardiovascular Rhythm: regular - Extremities Extremities: abnormal (contracted) Results - Labs CBC & Chem 7: 07/30/18 10:28 07/30/18 03:26 Labs: Abnormal lab results 07/29/18 07/29/18 07/29/18 Range/Units 18:50 18:50 18:50 WBC 14.4 H (4.5-11.0) K/mm3 RBC 2.60 L (3.65-5.03) M/mm3 Hgb 6.9 L (11.8-15.2) gm/dl Hct 23.3 L (35.5-45.6) % MCH 26 L (28-32) pg MCHC 29 L (32-34) % RDW 17.6 H (13.2-15.2) % Plt Count 469 H (140-440) K/mm3 Lymph % (Auto) 9.4 L (13.4-35.0) % [place] % (Auto) 11.1 H (0.0-7.3) % Lymph # (1.2-5.4) K/mm3 [place] # 1.6 H (0.0-0.8) K/mm3 Seg Neutrophils % 78.4 H (40.0-70.0) % Seg Neutrophils # 11.3 H (1.8-7.7) K/mm3 Sodium 146 H (137-145) mmol/L Potassium 5.8 H (3.6-5.0) mmol/L Chloride (98-107) mmol/L Carbon Dioxide 19 L (22-30) mmol/L BUN 91 H (9-20) mg/dL Creatinine 3.6 H (0.8-1.5) mg/dL Glucose 137 H (75-100) mg/dL Lactic Acid 3.90 H* (0.7-2.0) mmol/L Calcium (8.4-10.2) mg/dL AST 116 H (5-40) units/L ALT 122 H (7-56) units/L Alkaline Phosphatase 511 H (35-129) units/L Albumin 2.3 L (3.9-5) g/dL Urine WBC (Auto) (0.0-6.0) /HPF Crossmatch 07/29/18 07/29/18 07/29/18 Range/Units 21:25 21:33 22:51 WBC (4.5-11.0) K/mm3 RBC (3.65-5.03) M/mm3 Hgb (11.8-15.2) gm/dl Hct (35.5-45.6) % MCH (28-32) pg MCHC (32-34) % RDW (13.2-15.2) % Plt Count (140-440) K/mm3 Lymph % (Auto) (13.4-35.0) % [place] % (Auto) (0.0-7.3) % Lymph # (1.2-5.4) K/mm3 [place] # (0.0-0.8) K/mm3 Seg Neutrophils % (40.0-70.0) % Seg Neutrophils # (1.8-7.7) K/mm3 Sodium (137-145) mmol/L Potassium (3.6-5.0) mmol/L Chloride (98-107) mmol/L Carbon Dioxide (22-30) mmol/L BUN (9-20) mg/dL Creatinine (0.8-1.5) mg/dL Glucose (75-100) mg/dL Lactic Acid 2.80 H* 3.20 H* (0.7-2.0) mmol/L Calcium (8.4-10.2) mg/dL AST (5-40) units/L ALT (7-56) units/L Alkaline Phosphatase (35-129) units/L Albumin (3.9-5) g/dL Urine WBC (Auto) > 182.0 H (0.0-6.0) /HPF Crossmatch 07/30/18 07/30/18 07/30/18 Range/Units 00:24 03:26 03:26 WBC 17.0 H (4.5-11.0) K/mm3 RBC 2.49 L (3.65-5.03) M/mm3 Hgb 6.6 L (11.8-15.2) gm/dl Hct 20.8 L (35.5-45.6) % MCH 26 L (28-32) pg MCHC (32-34) % RDW 17.2 H (13.2-15.2) % Plt Count (140-440) K/mm3 Lymph % (Auto) 3.6 L (13.4-35.0) % [place] % (Auto) 12.2 H (0.0-7.3) % Lymph # 0.6 L (1.2-5.4) K/mm3 [place] # 2.1 H (0.0-0.8) K/mm3 Seg Neutrophils % 83.9 H (40.0-70.0) % Seg Neutrophils # 14.2 H (1.8-7.7) K/mm3 Sodium 146 H 147 H (137-145) mmol/L Potassium (3.6-5.0) mmol/L Chloride 109.9 H 112.1 H (98-107) mmol/L Carbon Dioxide 16 L 17 L (22-30) mmol/L BUN 85 H 83 H (9-20) mg/dL Creatinine 3.1 H 2.8 H (0.8-1.5) mg/dL Glucose 109 H (75-100) mg/dL Lactic Acid (0.7-2.0) mmol/L Calcium 7.9 L (8.4-10.2) mg/dL AST (5-40) units/L ALT (7-56) units/L Alkaline Phosphatase (35-129) units/L Albumin (3.9-5) g/dL Urine WBC (Auto) (0.0-6.0) /HPF Crossmatch 07/30/18 07/30/18 Range/Units 03:26 10:28 WBC (4.5-11.0) K/mm3 RBC (3.65-5.03) M/mm3 Hgb 8.1 L (11.8-15.2) gm/dl Hct 25.8 L (35.5-45.6) % MCH (28-32) pg MCHC (32-34) % RDW (13.2-15.2) % Plt Count (140-440) K/mm3 Lymph % (Auto) (13.4-35.0) % [place] % (Auto) (0.0-7.3) % Lymph # (1.2-5.4) K/mm3 [place] # (0.0-0.8) K/mm3 Seg Neutrophils % (40.0-70.0) % Seg Neutrophils # (1.8-7.7) K/mm3 Sodium (137-145) mmol/L Potassium (3.6-5.0) mmol/L Chloride (98-107) mmol/L Carbon Dioxide (22-30) mmol/L BUN (9-20) mg/dL Creatinine (0.8-1.5) mg/dL Glucose (75-100) mg/dL Lactic Acid (0.7-2.0) mmol/L Calcium (8.4-10.2) mg/dL AST (5-40) units/L ALT (7-56) units/L Alkaline Phosphatase (35-129) units/L Albumin (3.9-5) g/dL Urine WBC (Auto) (0.0-6.0) /HPF Crossmatch See Detail - Imaging and Cardiology Chest x-ray: image reviewed Assessment and Plan 67 male with chronic anemia and chronic hypotension 1. Transfuse 2 more units of PRBC 2. Bolus 1 liter of saline 3. Wean Pressors for MAPS >65 4. Feed patient CCt 31 minutes
[2018-07-30] MEDS ORDERED: NACL 0.9% 500 ML 500 ML IV NR (12:00)
[2018-07-30] MEDS ORDERED: SIMPLE SYRUP FEEDTUBE PRN ×2 (13:59)
[2018-07-30] MEDS ORDERED: SODIUM BICARBONATE FEEDTUBE PRN (13:59)
[2018-07-30] MEDS ORDERED: PANCREAZE DR 10,500 UNIT FEEDTUBE PRN (13:59)
[2018-07-30] MEDS: NACL 0.45% 1000 ML 1,000 ML IV SCH (14:39)
--- NOTE | 2018-07-30 15:55 | Progress Note ---
Assessment and Plan Assessment and plan: Septic shock, source could be decubitus ulcer - Patient is on IV antibiotics, pressors and IV fluids - Follow culture Septic arthritis - Could be due to decubitus ulcer - Continue IV antibiotics, orthopedics consulted Symptomatic anemia; patient was transfused with packed RBC and posttransfusion hemoglobin was 8.2, we'll continue to monitor Acute renal failure - Nephrology consulted, avoid nephrotoxins, IV fluids Patient is bedbound, contracted extremities - Continue supportive care Multiple decubitus ulcer - Followed by Dr. Man as outpatient - We'll put wound consult DVT prophylaxis - SCDs because of severe anemia Disposition - Continue ICU care The high probability of a clinically significant, sudden or life threatening deterioration of the [CVS] system(s) required my full and direct attention, intervention and personal management. The aggregate critical care time was [31] minutes. This time is in addition to time spent performing reported procedures but includes the following: [x] Data Review and interpretation [x] Patient assessment and monitoring of vital signs [x] Documentation [x] Medication orders and management History Interval history: Patient was seen and evaluated this morning, patient was admitted and oriented. Patient denied any pain. Hospitalist Physical - Physical exam Narrative exam: Not in cardiopulmonary distress. The patient appeared well nourished and normally developed. Vital signs as documented. Head exam is unremarkable. No scleral icterus . Neck is without jugular venous distension, thyromegaly, or carotid bruits. Lungs are clear to auscultation. Cardiac exam reveals regular rate and Rhythm. First and second heart sounds normal. No murmurs, rubs or gallops. Abdominal exam reveals normal bowel sounds, no masses, no organomegaly and no aortic enlargement. Extremities contracted. 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; multiple decubitus ulcer present on admission - Constitutional Vitals: Temp Pulse Resp BP Pulse Ox 97.3 F L 69 24 112/58 100 07/30/18 15:19 07/30/18 15:19 07/30/18 15:19 07/30/18 15:19 07/30/18 15:19 General appearance: Present: no acute distress, cachectic Results - Labs CBC & Chem 7: 07/30/18 10:28 07/30/18 03:26 Labs: Laboratory Last Values WBC 17.0 K/mm3 (4.5-11.0) H 07/30/18 03:26 RBC 2.49 M/mm3 (3.65-5.03) L 07/30/18 03:26 Hgb 8.1 gm/dl (11.8-15.2) L 07/30/18 10:28 Hct 25.8 % (35.5-45.6) L 07/30/18 10:28 MCV 84 fl (84-94) 07/30/18 03:26 MCH 26 pg (28-32) L 07/30/18 03:26 MCHC 32 % (32-34) 07/30/18 03:26 RDW 17.2 % (13.2-15.2) H 07/30/18 03:26 Plt Count 422 K/mm3 (140-440) 07/30/18 03:26 Lymph % (Auto) 3.6 % (13.4-35.0) L 07/30/18 03:26 [place] % (Auto) 12.2 % (0.0-7.3) H 07/30/18 03:26 Eos % (Auto) 0.1 % (0.0-4.3) 07/30/18 03:26 Baso % (Auto) 0.2 % (0.0-1.8) 07/30/18 03:26 Lymph # 0.6 K/mm3 (1.2-5.4) L 07/30/18 03:26 [place] # 2.1 K/mm3 (0.0-0.8) H 07/30/18 03:26 Eos # 0.0 K/mm3 (0.0-0.4) 07/30/18 03:26 Baso # 0.0 K/mm3 (0.0-0.1) 07/30/18 03:26 Seg Neutrophils % 83.9 % (40.0-70.0) H 07/30/18 03:26 Seg Neutrophils # 14.2 K/mm3 (1.8-7.7) H 07/30/18 03:26 Sodium 147 mmol/L (137-145) H 07/30/18 03:26 Potassium 4.7 mmol/L (3.6-5.0) 07/30/18 03:26 Chloride 112.1 mmol/L (98-107) H 07/30/18 03:26 Carbon Dioxide 17 mmol/L (22-30) L 07/30/18 03:26 Anion Gap 23 mmol/L 07/30/18 03:26 BUN 83 mg/dL (9-20) H 07/30/18 03:26 Creatinine 2.8 mg/dL (0.8-1.5) H 07/30/18 03:26 Estimated GFR 27 ml/min 07/30/18 03:26 BUN/Creatinine Ratio 30 % 07/30/18 03:26 Glucose 109 mg/dL (75-100) H 07/30/18 03:26 Lactic Acid 1.60 mmol/L (0.7-2.0) 07/30/18 03:26 Calcium 7.9 mg/dL (8.4-10.2) L 07/30/18 03:26 Total Bilirubin 0.50 mg/dL (0.1-1.2) 07/29/18 18:50 AST 116 units/L (5-40) H 07/29/18 18:50 ALT 122 units/L (7-56) H 07/29/18 18:50 Alkaline Phosphatase 511 units/L (35-129) H 07/29/18 18:50 Total Protein 6.7 g/dL (6.3-8.2) 07/29/18 18:50 Albumin 2.3 g/dL (3.9-5) L 07/29/18 18:50 Albumin/Globulin Ratio 0.5 % 07/29/18 18:50 Urine Color [place] (Yellow) 07/29/18 21:33 Urine Turbidity Cloudy (Clear) 07/29/18 21:33 Urine pH 5.0 (5.0-7.0) 07/29/18 21:33 Ur Specific [place] 1.028 (1.003-1.030) 07/29/18 21:33 Urine Protein 100 mg/dl mg/dL (Negative) 07/29/18 21:33 Urine Glucose (UA) Neg mg/dL (Negative) 07/29/18 21:33 Urine Ketones Neg mg/dL (Negative) 07/29/18 21:33 Urine Blood Mod (Negative) 07/29/18 21:33 Urine Nitrite Neg (Negative) 07/29/18 21:33 Urine Bilirubin Neg (Negative) 07/29/18 21:33 Urine Urobilinogen 2.0 mg/dL (<2.0) 07/29/18 21:33 Ur Leukocyte Esterase Lg (Negative) 07/29/18 21:33 Urine WBC (Auto) > 182.0 /HPF (0.0-6.0) H 07/29/18 21:33 Urine RBC (Auto) > 182.0 /HPF (0.0-6.0) 07/29/18 21:33 Urine Bacteria (Auto) 4+ /HPF (Negative) 07/29/18 21:33 Urine WBC Clumps 3+ /HPF 07/29/18 21:33 Urine Mucus Few /HPF 07/29/18 21:33 Blood Type O POSITIVE 07/30/18 03:26 Antibody Screen Negative 07/30/18 03:26 Crossmatch See Detail 07/30/18 03:26 Nutrition/Malnutrition Assess - Dietary Evaluation Nutrition/Malnutrition Findings: Nutrition Notes Start: 07/30/18 09:58 Freq: Status: Active Protocol: Document 07/30/18 09:58 CHANDRAKANT (Rec: 07/30/18 10:01 CHANDRAKANT [id number]) Nutrition Notes Need for Assessment generated from: MD Order Initial or Follow up Assessment Current Diagnosis Coronary Artery Disease, Decubitus(Pressure Ulcer), Diabetes,Hypertension,Heart Failure Other Pertinent Diagnosis Septic shock, UTI, Seizure D/O , anemia Current Diet No diet ordered Labs/Tests Na 147 BUN 83 Cr 2.8 Pertinent Medications 500mg Vit C BID, 220mg zinc sulfate daily, Levophed gtt Height 5 ft 10 in Weight 56.8 kg [place] Body Weight (kg) 75.45 BMI 17.9 Weight change and time frame Current obtained from bed scale Weight Status Underweight Subjective/Other Information RD consulted for TF; pt also screened for hx of receiving NTR support, malnutrition and skin risks (Miky score: 9), and chewing difficulty. Pt from [place] and has multiple decubitus ulcers. 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 No Is Patient Ambulatory and/or Out of Bed No REE-([facility]-confined to bed) 1618.944 Kcal/Kg value to use for calculation 35 Approximate Energy Requirements Using 1988 kcal/Kg Additional Notes Pro needs 1.5-2g/k-114g/ day Fluid needs 1ml/kcal Nutrition Intervention Nutrition Support: Promote at 75ml/hr with 50ml water flush q4h. Kcal 1,800 Protein (gm) 113 Carbohydrates (gm) 234 Fluid (mL) 1,510 Fiber (gm) 0 Goal #1 TF tolerance Goal #2 TF to meet 100% energy and pro needs Goal #3 Wt maintenance and/or gain Anticipated Discharge Needs: Continue Promote (or other high protein formula) for adequate protein for wound healing Follow-Up By: 08/01/18 Additional Comments F/U: new TF
[2018-07-30 22:51] LABS: Hemoglobin 11.4 gm/dl (11.8-15.2)
[2018-07-30] MEDS ORDERED: NACL 0.9% 1000 ML 1,000 ML ONE (23:49)
[2018-07-31] MEDS: NACL 0.45% 1000 ML 1,000 ML IV SCH ×3 (00:16→14:56)
[2018-07-31] MEDS: TYLENOL PO PRN ×2 (00:16→16:36)
[2018-07-31] MEDS ORDERED: INTROPIN DRIP 800 MG/D5W 250 ML 800 MG/250 ML BAG IV SCH (02:00)
[2018-07-31] MEDS: LEVOPHED 8 MG in NACL 0.9% 250ML 242 ML IV SCH ×2 (04:30→16:54)
[2018-07-31 05:07] LABS: Basophils # (Auto) 0.1 K/mm3 (0.0-0.1); Basophils % (Auto) 0.3 % (0.0-1.8); Eosinophils # (Auto) 0.1 K/mm3 (0.0-0.4); Eosinophils % (Auto) 0.4 % (0.0-4.3); Hemoglobin 10.5 gm/dl (11.8-15.2); Lymphocytes # (Auto) 0.6 K/mm3 (1.2-5.4); Lymphocytes % (Auto) 3.2 % (13.4-35.0); Mean Corpuscular HGB Conc 33 % (32-34); Mean Corpuscular Volume 86 fl (84-94); Monocytes # (Auto) 1.4 K/mm3 (0.0-0.8); Monocytes % (Auto) 8.4 % (0.0-7.3); Platelet Count 385 K/mm3 (140-440); Red Blood Count 3.74 M/mm3 (3.65-5.03); Red Cell Distribution Width 15.7 % (13.2-15.2)
[2018-07-31 05:33] LABS: Albumin 1.8 g/dL (3.9-5); Calcium 8.7 mg/dL (8.4-10.2)
[2018-07-31] MEDS: KEPPRA PO SCH ×3 (05:50→22:59)
[2018-07-31] MEDS: ZOSYN/NS 2.25 GM/50ML 2.25 GM/50 ML BAG IV SCH (06:00)
[2018-07-31] MEDS ORDERED: NACL 0.9% 1000 ML 1,000 ML IV ONE (10:00)
[2018-07-31] MEDS ORDERED: MAXIPIME/NS 2 GM/100 ML 2 GM/100 ML BAG IV SCH (10:00)
[2018-07-31] MEDS: VITAMIN C PO SCH ×2 (10:16→22:00)
[2018-07-31] MEDS: SODIUM CHLORIDE FLUSH SYRINGE 10 ML IV SCH ×2 (10:18→22:00)
--- NOTE | 2018-07-31 10:41 | Progress Note ---
Assessment and Plan 1. Acute kidney injury: Vasomotor / hemodynamic M[place]NICA in the setting of hypotension, sepsis and volume depletion. CT abdomen was negative for hydronephrosis. Continue IV fluids. Monitor renal function. Renal prognosis is guarded. Avoid nephrotoxic agents. Meds dosage based on GFR. 2. FEN: Hypernatremia, 1/2 NS. Increase PEG tube water flushes to 150 ml Q4hrs. Metabolic acidosis. Monitor lytes. 3. Sepsis with shock: On Levophed. 4. Anemia: S/p PRBC. 5. Multiple decubitus ulcers. 6. Shock Liver. Subjective Date of service: 07/31/18 Interval history: Patient was seen and examined at the bedside. Objective - Vital Signs Vital signs: Vital Signs - 12hr 07/30/18 07/30/18 07/30/18 22:50 23:00 23:10 Pulse Rate 95 H 95 H 96 H Pulse Rate [ Right Radial] Respiratory 37 H 25 H 29 H Rate Blood Pressure 91/54 75/45 75/45 O2 Sat by Pulse 97 96 96 Oximetry 07/30/18 07/30/18 07/30/18 23:19 23:20 23:30 Pulse Rate 94 H 96 H Pulse Rate [ 96 H Right Radial] Respiratory 21 41 H 15 Rate Blood Pressure 85/50 79/49 O2 Sat by Pulse 99 96 Oximetry 07/30/18 07/30/18 07/31/18 23:40 23:50 00:00 Pulse Rate 105 H 96 H 90 Pulse Rate [ Right Radial] Respiratory 19 41 H 44 H Rate Blood Pressure 77/44 89/52 96/54 O2 Sat by Pulse 94 96 Oximetry 07/31/18 07/31/18 07/31/18 00:10 00:16 00:20 Pulse Rate 91 H 95 H Pulse Rate [ Right Radial] Respiratory 47 H 28 H 47 H Rate Blood Pressure 96/54 94/45 O2 Sat by Pulse 96 96 Oximetry 07/31/18 07/31/18 07/31/18 00:30 00:40 00:50 Pulse Rate 88 91 H 88 Pulse Rate [ Right Radial] Respiratory 46 H 44 H 53 H Rate Blood Pressure 90/48 67/40 78/50 O2 Sat by Pulse 96 96 96 Oximetry 07/31/18 07/31/18 07/31/18 01:00 01:10 01:20 Pulse Rate 79 76 74 Pulse Rate [ Right Radial] Respiratory 47 H 39 H 36 H Rate Blood Pressure 94/51 78/50 87/49 O2 Sat by Pulse 95 96 96 Oximetry 07/31/18 07/31/18 07/31/18 01:30 01:40 01:50 Pulse Rate 73 73 71 Pulse Rate [ Right Radial] Respiratory 31 H 31 H 25 H Rate Blood Pressure 101/50 87/49 104/50 O2 Sat by Pulse 95 96 97 Oximetry 07/31/18 07/31/18 07/31/18 02:00 02:10 02:20 Pulse Rate 70 68 71 Pulse Rate [ Right Radial] Respiratory 25 H 22 24 Rate Blood Pressure 110/52 110/52 102/52 O2 Sat by Pulse 97 99 96 Oximetry 07/31/18 07/31/18 07/31/18 02:30 02:40 02:50 Pulse Rate 76 77 79 Pulse Rate [ Right Radial] Respiratory 32 H 32 H 25 H Rate Blood Pressure 112/53 102/52 108/55 O2 Sat by Pulse 95 96 97 Oximetry 07/31/18 07/31/18 07/31/18 03:00 03:10 03:20 Pulse Rate 76 77 72 Pulse Rate [ Right Radial] Respiratory 22 20 23 Rate Blood Pressure 111/56 111/56 116/57 O2 Sat by Pulse 95 95 97 Oximetry 07/31/18 07/31/18 07/31/18 03:30 03:40 03:50 Pulse Rate 75 76 81 Pulse Rate [ Right Radial] Respiratory 21 26 H 25 H Rate Blood Pressure 112/57 112/57 87/46 O2 Sat by Pulse 97 99 97 Oximetry 07/31/18 07/31/18 07/31/18 04:00 04:10 04:20 Pulse Rate 73 71 73 Pulse Rate [ 96 H Right Radial] Respiratory 19 18 20 Rate Blood Pressure 111/56 87/46 106/56 O2 Sat by Pulse 98 98 98 Oximetry 07/31/18 07/31/18 07/31/18 04:30 04:40 04:50 Pulse Rate 73 74 70 Pulse Rate [ Right Radial] Respiratory 19 19 18 Rate Blood Pressure 106/56 106/56 91/56 O2 Sat by Pulse 96 97 97 Oximetry 07/31/18 07/31/18 07/31/18 05:00 05:10 05:20 Pulse Rate 73 73 73 Pulse Rate [ Right Radial] Respiratory 19 18 19 Rate Blood Pressure 112/57 112/57 112/60 O2 Sat by Pulse 98 99 98 Oximetry 07/31/18 07/31/18 07/31/18 05:30 05:40 05:50 Pulse Rate 78 72 73 Pulse Rate [ Right Radial] Respiratory 19 18 18 Rate Blood Pressure 116/59 116/59 119/61 O2 Sat by Pulse 98 99 99 Oximetry 07/31/18 07/31/18 07/31/18 06:00 06:10 06:20 Pulse Rate 74 80 83 Pulse Rate [ 88 Right Radial] Respiratory 21 21 30 H Rate Blood Pressure 118/61 118/61 118/61 O2 Sat by Pulse 99 98 Oximetry 07/31/18 07/31/18 07/31/18 06:30 06:40 06:50 Pulse Rate 75 82 75 Pulse Rate [ Right Radial] Respiratory 26 H 24 25 H Rate Blood Pressure 109/55 109/55 112/56 O2 Sat by Pulse 95 96 Oximetry 07/31/18 07/31/18 07/31/18 07:00 07:10 07:20 Pulse Rate 70 70 70 Pulse Rate [ Right Radial] Respiratory 22 22 18 Rate Blood Pressure 111/55 111/55 112/56 O2 Sat by Pulse 97 97 98 Oximetry 07/31/18 07/31/18 07/31/18 07:30 07:40 07:50 Pulse Rate 70 70 68 Pulse Rate [ Right Radial] Respiratory 20 21 18 Rate Blood Pressure 116/57 116/57 112/56 O2 Sat by Pulse 98 99 99 Oximetry 07/31/18 07/31/18 07/31/18 08:00 08:10 08:20 Pulse Rate 70 76 69 Pulse Rate [ Right Radial] Respiratory 21 26 H 23 Rate Blood Pressure 118/58 118/58 120/58 O2 Sat by Pulse 99 96 98 Oximetry 07/31/18 07/31/18 07/31/18 08:30 08:40 08:50 Pulse Rate 68 67 68 Pulse Rate [ Right Radial] Respiratory 22 22 15 Rate Blood Pressure 113/54 113/54 120/58 O2 Sat by Pulse 99 99 99 Oximetry 07/31/18 07/31/18 07/31/18 09:00 09:10 09:20 Pulse Rate 69 68 67 Pulse Rate [ Right Radial] Respiratory 21 18 16 Rate Blood Pressure 119/56 119/56 117/55 O2 Sat by Pulse 99 99 99 Oximetry 07/31/18 07/31/18 07/31/18 09:30 09:40 09:50 Pulse Rate 68 67 68 Pulse Rate [ Right Radial] Respiratory 21 20 18 Rate Blood Pressure 111/55 111/55 116/54 O2 Sat by Pulse 99 99 99 Oximetry 07/31/18 07/31/18 07/31/18 10:00 10:04 10:10 Pulse Rate 67 66 Pulse Rate [ 74 Right Radial] Respiratory 25 H 24 18 Rate Blood Pressure 116/54 116/54 O2 Sat by Pulse 99 99 99 Oximetry 07/31/18 07/31/18 10:20 10:30 Pulse Rate 70 65 Pulse Rate [ Right Radial] Respiratory 22 24 Rate Blood Pressure 116/54 115/55 O2 Sat by Pulse 99 99 Oximetry - General Appearance General appearance: well-developed, appears stated age, frail, other (not in distress) EENT: ATNC, PERRL Neck: other (Trachea midline) Respiratory: Present: Clear to Ascultation Cardiology: regular, S1S2, no murmurs Gastrointestinal: normoactive bowel sounds, no tenderness, no distended, other (PEG tube noted) Integumentary: ulcer, decubiti (multiple areas) Neurologic: confused, disoriented, other (answers questions, not following command) Musculoskeletal: other (contractures noted, no edema) - Lab 07/31/18 04:25 07/31/18 04:25 Most recent lab results Calcium 8.7 mg/dL (8.4-10.2) 07/31/18 04:25 Phosphorus 4.10 mg/dL (2.5-4.5) 07/31/18 04:25 Magnesium 2.70 mg/dL (1.7-2.3) H 07/31/18 04:25 Medications & Allergies - Medications Allergies/Adverse Reactions: Allergies tramadol Allergy (Verified 07/29/18 18:39) Unknown Home Medications: Home Medications Medication Instructions Recorded Confirmed Last Taken Type amLODIPine [Norvasc] 10 mg NGTUBE DAILY 06/02/16 07/30/18 Unknown History Multivit-Min/Iron Fum/Folic AC 1 each PO DAILY 03/24/18 07/30/18 Unknown History [Xcbdx-Simiejh-Tihapisc Tablet] Carvedilol [Coreg] 6.25 mg PO Q12H 06/13/18 07/30/18 Unknown History Acetaminophen 650 mg NGTUBE Q6H PRN 07/30/18 07/30/18 Unknown History Apixaban [Eliquis] 2.5 mg PO Q12H 07/30/18 07/30/18 Unknown History AtorvaSTATin [Lipitor] 40 mg NGTUBE QHS 07/30/18 07/30/18 Unknown History Dutasteride 0.5 mg NGTUBE QAM 07/30/18 07/30/18 Unknown History Furosemide [Lasix TAB] 40 mg PO QDAY 07/30/18 07/30/18 Unknown History Ipratropium/Albuterol Sulfate 1 ampul IH BID 07/30/18 07/30/18 Unknown History [DUONEB *Not for PRN Use*] Lisinopril [Zestril TAB] 40 mg PO QDAY 07/30/18 07/30/18 Unknown History Oxycodone HCl/Acetaminophen 1 each PO Q8HR PRN 07/30/18 07/30/18 Unknown History [Percocet 7.5/325 mg] Tamsulosin [Flomax] 0.4 mg PO QDAY 07/30/18 07/30/18 Unknown History Vit C/Ascorbate Calcium,Sodium 500 mg NGTUBE BID 07/30/18 07/30/18 Unknown History [Vitamin C 500 mg/15 ml Liquid] Zinc Sulfate 220 mg NGTUBE QDAY 07/30/18 07/30/18 Unknown History diphenhydrAMINE [Benadryl CAP] 25 mg NGTUBE Q6H PRN 07/30/18 07/30/18 Unknown History levETIRAcetam [Keppra INJ] 500 mg PO Q12H 07/30/18 07/30/18 Unknown History Active Medications: Generic Name Dose Route Start Last Admin Trade Name Freq PRN Reason Stop Dose Admin Acetaminophen 650 mg 07/30/18 02:50 07/31/18 00:16 Tylenol PO 650 mg Q4H PRN Administration Pain MILD(1-3)/Fever >100.5/PRICE Lipase/Protease/Amylase 1 each 07/30/18 13:59 Pancrenomi Moore 10,500 Unit FEEDTUBE PRN PRN For Clogged Feeding Tube Ascorbic Acid 500 mg 07/30/18 10:00 07/31/18 10:16 Vitamin C PO 500 mg BID NORA Administration Dextrose 50 ml 07/30/18 02:56 D50w (25gm) Syringe IV PRN PRN Hypoglycemia Norepinephrine 8 mg/ Sodium 250 mls @ 3.75 mls/hr 07/29/18 23:00 07/31/18 10:18 Chloride IV 10 mcg/min TITR NORA 18.75 mls/hr Titration Protocol 2 MCG/MIN Sodium Chloride 1,000 mls @ 150 mls/hr 07/30/18 13:00 07/31/18 07:35 Nacl 0.45% 1000 Ml IV 150 mls/hr DIRECT NORA Administration Dopamine HCl/Dextrose 800 mg in 250 mls @ 2.193 mls/hr 07/31/18 02:00 07/31/18 09:08 Intropin Drip 800 Mg/D5w 250 Ml IV 0 mcg/kg/min TITR NORA 0 mls/hr Titration Protocol 2 MCG/KG/MIN Sodium Chloride 1,000 mls @ 999 mls/hr 07/31/18 10:00 07/31/18 10:16 Nacl 0.9% 1000 Ml IV 07/31/18 11:00 999 mls/hr BOLUS ONE Administration Cefepime HCl 2 gm in 100 mls @ 200 mls/hr 07/31/18 10:00 Maxipime/Ns 2 Gm/100 Ml IV Q24HR NORA Vancomycin HCl 1,250 mg/ 275 mls @ 166.667 mls/hr 07/31/18 12:00 Sodium Chloride IV Q24HR NORA Metronidazole 500 mg in 100 mls @ 100 mls/hr 07/31/18 14:00 Flagyl 500 Mg/100 Ml IV Q8HR [facility] Insulin Human Regular 0 units 07/31/18 12:00 Humulin R SUB-Q Q6HR [facility] Protocol Levetiracetam 500 mg 07/30/18 06:00 07/31/18 05:50 Keppra PO 500 mg Q12H NORA Administration Ondansetron HCl 4 mg 07/30/18 02:50 Zofran IV Q8H PRN Nausea And Vomiting Simple Syrup 15 ml 07/30/18 13:59 Simple Syrup FEEDTUBE PRN PRN Hypoglycemia Simple Syrup 30 ml 07/30/18 13:59 Simple Syrup FEEDTUBE PRN PRN Hypoglycemia Sodium Bicarbonate 325 mg 07/30/18 13:59 Sodium Bicarbonate FEEDTUBE PRN PRN For Clogged Feeding Tube Sodium Chloride 10 ml 07/30/18 10:00 07/31/18 10:18 Sodium Chloride Flush Syringe 10 Ml IV 10 ml BID NORA Administration Sodium Chloride 10 ml 07/30/18 02:50 Sodium Chloride Flush Syringe 10 Ml IV PRN PRN LINE FLUSH Zinc Sulfate 220 mg 07/30/18 10:00 07/30/18 11:06 Zinc Sulfate PO 220 mg QDAY NORA Administration
--- NOTE | 2018-07-31 10:48 | Progress Note ---
Assessment and Plan 67 male with chronic anemia and chronic hypotension 1. 1 liter saline bolus 2. Readjust Vanc dosing and changed Zosyn to Cefepime. Given bacteremia, suggest ID consult. Wound has not seen yet but my guess is that one of the wounds is the source of infection. 3. Wean Pressors for MAPS >65 4. Feed patient 5. Add sliding scale insulin coverage CCt 31 minutes Subjective Date of service: 07/31/18 Interval history: No acute events. Received a total of 3 units of PRBC's. Still on Levo but down to 10. One liter bolus yesterday and a second ordered by me this morning. Making urine. Blood cultures are Positive for GPC's in chains 4/ bottles. No fever. Renal function improving with volume. Objective - Constitutional Vitals: Vital Signs - 12hr 07/30/18 07/30/18 07/30/18 22:50 23:00 23:10 Pulse Rate 95 H 95 H 96 H Pulse Rate [ Right Radial] Respiratory 37 H 25 H 29 H Rate Blood Pressure 91/54 75/45 75/45 O2 Sat by Pulse 97 96 96 Oximetry 07/30/18 07/30/18 07/30/18 23:19 23:20 23:30 Pulse Rate 94 H 96 H Pulse Rate [ 96 H Right Radial] Respiratory 21 41 H 15 Rate Blood Pressure 85/50 79/49 O2 Sat by Pulse 99 96 Oximetry 07/30/18 07/30/18 07/31/18 23:40 23:50 00:00 Pulse Rate 105 H 96 H 90 Pulse Rate [ Right Radial] Respiratory 19 41 H 44 H Rate Blood Pressure 77/44 89/52 96/54 O2 Sat by Pulse 94 96 Oximetry 07/31/18 07/31/18 07/31/18 00:10 00:16 00:20 Pulse Rate 91 H 95 H Pulse Rate [ Right Radial] Respiratory 47 H 28 H 47 H Rate Blood Pressure 96/54 94/45 O2 Sat by Pulse 96 96 Oximetry 07/31/18 07/31/18 07/31/18 00:30 00:40 00:50 Pulse Rate 88 91 H 88 Pulse Rate [ Right Radial] Respiratory 46 H 44 H 53 H Rate Blood Pressure 90/48 67/40 78/50 O2 Sat by Pulse 96 96 96 Oximetry 07/31/18 07/31/18 07/31/18 01:00 01:10 01:20 Pulse Rate 79 76 74 Pulse Rate [ Right Radial] Respiratory 47 H 39 H 36 H Rate Blood Pressure 94/51 78/50 87/49 O2 Sat by Pulse 95 96 96 Oximetry 07/31/18 07/31/18 07/31/18 01:30 01:40 01:50 Pulse Rate 73 73 71 Pulse Rate [ Right Radial] Respiratory 31 H 31 H 25 H Rate Blood Pressure 101/50 87/49 104/50 O2 Sat by Pulse 95 96 97 Oximetry 07/31/18 07/31/18 07/31/18 02:00 02:10 02:20 Pulse Rate 70 68 71 Pulse Rate [ Right Radial] Respiratory 25 H 22 24 Rate Blood Pressure 110/52 110/52 102/52 O2 Sat by Pulse 97 99 96 Oximetry 07/31/18 07/31/18 07/31/18 02:30 02:40 02:50 Pulse Rate 76 77 79 Pulse Rate [ Right Radial] Respiratory 32 H 32 H 25 H Rate Blood Pressure 112/53 102/52 108/55 O2 Sat by Pulse 95 96 97 Oximetry 07/31/18 07/31/18 07/31/18 03:00 03:10 03:20 Pulse Rate 76 77 72 Pulse Rate [ Right Radial] Respiratory 22 20 23 Rate Blood Pressure 111/56 111/56 116/57 O2 Sat by Pulse 95 95 97 Oximetry 07/31/18 07/31/18 07/31/18 03:30 03:40 03:50 Pulse Rate 75 76 81 Pulse Rate [ Right Radial] Respiratory 21 26 H 25 H Rate Blood Pressure 112/57 112/57 87/46 O2 Sat by Pulse 97 99 97 Oximetry 07/31/18 07/31/18 07/31/18 04:00 04:10 04:20 Pulse Rate 73 71 73 Pulse Rate [ 96 H Right Radial] Respiratory 19 18 20 Rate Blood Pressure 111/56 87/46 106/56 O2 Sat by Pulse 98 98 98 Oximetry 07/31/18 07/31/18 07/31/18 04:30 04:40 04:50 Pulse Rate 73 74 70 Pulse Rate [ Right Radial] Respiratory 19 19 18 Rate Blood Pressure 106/56 106/56 91/56 O2 Sat by Pulse 96 97 97 Oximetry 07/31/18 07/31/18 07/31/18 05:00 05:10 05:20 Pulse Rate 73 73 73 Pulse Rate [ Right Radial] Respiratory 19 18 19 Rate Blood Pressure 112/57 112/57 112/60 O2 Sat by Pulse 98 99 98 Oximetry 07/31/18 07/31/18 07/31/18 05:30 05:40 05:50 Pulse Rate 78 72 73 Pulse Rate [ Right Radial] Respiratory 19 18 18 Rate Blood Pressure 116/59 116/59 119/61 O2 Sat by Pulse 98 99 99 Oximetry 07/31/18 07/31/18 07/31/18 06:00 06:10 06:20 Pulse Rate 74 80 83 Pulse Rate [ 88 Right Radial] Respiratory 21 21 30 H Rate Blood Pressure 118/61 118/61 118/61 O2 Sat by Pulse 99 98 Oximetry 07/31/18 07/31/18 07/31/18 06:30 06:40 06:50 Pulse Rate 75 82 75 Pulse Rate [ Right Radial] Respiratory 26 H 24 25 H Rate Blood Pressure 109/55 109/55 112/56 O2 Sat by Pulse 95 96 Oximetry 07/31/18 07/31/18 07/31/18 07:00 07:10 07:20 Pulse Rate 70 70 70 Pulse Rate [ Right Radial] Respiratory 22 22 18 Rate Blood Pressure 111/55 111/55 112/56 O2 Sat by Pulse 97 97 98 Oximetry 07/31/18 07/31/18 07/31/18 07:30 07:40 07:50 Pulse Rate 70 70 68 Pulse Rate [ Right Radial] Respiratory 20 21 18 Rate Blood Pressure 116/57 116/57 112/56 O2 Sat by Pulse 98 99 99 Oximetry 07/31/18 07/31/18 07/31/18 08:00 08:10 08:20 Pulse Rate 70 76 69 Pulse Rate [ Right Radial] Respiratory 21 26 H 23 Rate Blood Pressure 118/58 118/58 120/58 O2 Sat by Pulse 99 96 98 Oximetry 07/31/18 07/31/18 07/31/18 08:30 08:40 08:50 Pulse Rate 68 67 68 Pulse Rate [ Right Radial] Respiratory 22 22 15 Rate Blood Pressure 113/54 113/54 120/58 O2 Sat by Pulse 99 99 99 Oximetry 07/31/18 07/31/18 07/31/18 09:00 09:10 09:20 Pulse Rate 69 68 67 Pulse Rate [ Right Radial] Respiratory 21 18 16 Rate Blood Pressure 119/56 119/56 117/55 O2 Sat by Pulse 99 99 99 Oximetry 07/31/18 07/31/18 07/31/18 09:30 09:40 09:50 Pulse Rate 68 67 68 Pulse Rate [ Right Radial] Respiratory 21 20 18 Rate Blood Pressure 111/55 111/55 116/54 O2 Sat by Pulse 99 99 99 Oximetry 07/31/18 07/31/18 07/31/18 10:00 10:04 10:10 Pulse Rate 67 66 Pulse Rate [ 74 Right Radial] Respiratory 25 H 24 18 Rate Blood Pressure 116/54 116/54 O2 Sat by Pulse 99 99 99 Oximetry 07/31/18 07/31/18 10:20 10:30 Pulse Rate 70 65 Pulse Rate [ Right Radial] Respiratory 22 24 Rate Blood Pressure 116/54 115/55 O2 Sat by Pulse 99 99 Oximetry - Labs CBC & Chem 7: 07/31/18 04:25 07/31/18 04:25 Labs: Abnormal lab results 07/30/18 07/30/18 07/30/18 Range/Units 03:26 10:28 22:40 WBC (4.5-11.0) K/mm3 Hgb 8.1 L 11.4 L D (11.8-15.2) gm/dl Hct 25.8 L 35.0 L D (35.5-45.6) % RDW (13.2-15.2) % Lymph % (Auto) (13.4-35.0) % [place] % (Auto) (0.0-7.3) % Lymph # (1.2-5.4) K/mm3 [place] # (0.0-0.8) K/mm3 Seg Neutrophils % (40.0-70.0) % Seg Neutrophils # (1.8-7.7) K/mm3 Sodium (137-145) mmol/L Chloride (98-107) mmol/L Carbon Dioxide (22-30) mmol/L BUN (9-20) mg/dL Creatinine (0.8-1.5) mg/dL Glucose (75-100) mg/dL Magnesium (1.7-2.3) mg/dL AST (5-40) units/L ALT (7-56) units/L Alkaline Phosphatase (35-129) units/L Albumin (3.9-5) g/dL Crossmatch See Detail 07/31/18 07/31/18 Range/Units 04:25 04:25 WBC 17.2 H (4.5-11.0) K/mm3 Hgb 10.5 L (11.8-15.2) gm/dl Hct 32.0 L (35.5-45.6) % RDW 15.7 H (13.2-15.2) % Lymph % (Auto) 3.2 L (13.4-35.0) % [place] % (Auto) 8.4 H (0.0-7.3) % Lymph # 0.6 L (1.2-5.4) K/mm3 [place] # 1.4 H (0.0-0.8) K/mm3 Seg Neutrophils % 87.7 H (40.0-70.0) % Seg Neutrophils # 15.1 H (1.8-7.7) K/mm3 Sodium 148 H (137-145) mmol/L Chloride 120.4 H (98-107) mmol/L Carbon Dioxide 15 L (22-30) mmol/L BUN 75 H (9-20) mg/dL Creatinine 1.9 H (0.8-1.5) mg/dL Glucose 170 H (75-100) mg/dL Magnesium 2.70 H (1.7-2.3) mg/dL AST 57 H (5-40) units/L ALT 76 H (7-56) units/L Alkaline Phosphatase 379 H (35-129) units/L Albumin 1.8 L (3.9-5) g/dL Crossmatch Medications & Allergies - Medications Allergies/Adverse Reactions: Allergies tramadol Allergy (Verified 07/29/18 18:39) Unknown Home Medications: Home Medications Medication Instructions Recorded Confirmed Last Taken Type amLODIPine [Norvasc] 10 mg NGTUBE DAILY 06/02/16 07/30/18 Unknown History Multivit-Min/Iron Fum/Folic AC 1 each PO DAILY 03/24/18 07/30/18 Unknown History [Tgdye-Bnolmag-Dseenyfz Tablet] Carvedilol [Coreg] 6.25 mg PO Q12H 06/13/18 07/30/18 Unknown History Acetaminophen 650 mg NGTUBE Q6H PRN 07/30/18 07/30/18 Unknown History Apixaban [Eliquis] 2.5 mg PO Q12H 07/30/18 07/30/18 Unknown History AtorvaSTATin [Lipitor] 40 mg NGTUBE QHS 07/30/18 07/30/18 Unknown History Dutasteride 0.5 mg NGTUBE QAM 07/30/18 07/30/18 Unknown History Furosemide [Lasix TAB] 40 mg PO QDAY 07/30/18 07/30/18 Unknown History Ipratropium/Albuterol Sulfate 1 ampul IH BID 07/30/18 07/30/18 Unknown History [DUONEB *Not for PRN Use*] Lisinopril [Zestril TAB] 40 mg PO QDAY 07/30/18 07/30/18 Unknown History Oxycodone HCl/Acetaminophen 1 each PO Q8HR PRN 07/30/18 07/30/18 Unknown History [Percocet 7.5/325 mg] Tamsulosin [Flomax] 0.4 mg PO QDAY 07/30/18 07/30/18 Unknown History Vit C/Ascorbate Calcium,Sodium 500 mg NGTUBE BID 07/30/18 07/30/18 Unknown History [Vitamin C 500 mg/15 ml Liquid] Zinc Sulfate 220 mg NGTUBE QDAY 07/30/18 07/30/18 Unknown History diphenhydrAMINE [Benadryl CAP] 25 mg NGTUBE Q6H PRN 07/30/18 07/30/18 Unknown History levETIRAcetam [Keppra INJ] 500 mg PO Q12H 07/30/18 07/30/18 Unknown History Active Medications: Generic Name Dose Route Start Last Admin Trade Name Freq PRN Reason Stop Dose Admin Acetaminophen 650 mg 07/30/18 02:50 07/31/18 00:16 Tylenol PO 650 mg Q4H PRN Administration Pain MILD(1-3)/Fever >100.5/PRICE Lipase/Protease/Amylase 1 each 07/30/18 13:59 Pancrenomi Moore 10,500 Unit FEEDTUBE PRN PRN For Clogged Feeding Tube Ascorbic Acid 500 mg 07/30/18 10:00 07/31/18 10:16 Vitamin C PO 500 mg BID NORA Administration Dextrose 50 ml 07/30/18 02:56 D50w (25gm) Syringe IV PRN PRN Hypoglycemia Norepinephrine 8 mg/ Sodium 250 mls @ 3.75 mls/hr 07/29/18 23:00 07/31/18 10:18 Chloride IV 10 mcg/min TITR NORA 18.75 mls/hr Titration Protocol 2 MCG/MIN Sodium Chloride 1,000 mls @ 150 mls/hr 07/30/18 13:00 07/31/18 07:35 Nacl 0.45% 1000 Ml IV 150 mls/hr DIRECT NORA Administration Dopamine HCl/Dextrose 800 mg in 250 mls @ 2.193 mls/hr 07/31/18 02:00 07/31/18 09:08 Intropin Drip 800 Mg/D5w 250 Ml IV 0 mcg/kg/min TITR NORA 0 mls/hr Titration Protocol 2 MCG/KG/MIN Sodium Chloride 1,000 mls @ 999 mls/hr 07/31/18 10:00 07/31/18 10:16 Nacl 0.9% 1000 Ml IV 07/31/18 11:00 999 mls/hr BOLUS ONE Administration Cefepime HCl 2 gm in 100 mls @ 200 mls/hr 07/31/18 10:00 Maxipime/Ns 2 Gm/100 Ml IV Q24HR NORA Vancomycin HCl 1,250 mg/ 275 mls @ 166.667 mls/hr 07/31/18 12:00 Sodium Chloride IV Q24HR NORA Metronidazole 500 mg in 100 mls @ 100 mls/hr 07/31/18 14:00 Flagyl 500 Mg/100 Ml IV Q8HR [facility] Insulin Human Regular 0 units 07/31/18 12:00 Humulin R SUB-Q Q6HR [facility] Protocol Levetiracetam 500 mg 07/30/18 06:00 07/31/18 05:50 Keppra PO 500 mg Q12H NORA Administration Ondansetron HCl 4 mg 07/30/18 02:50 Zofran IV Q8H PRN Nausea And Vomiting Simple Syrup 15 ml 07/30/18 13:59 Simple Syrup FEEDTUBE PRN PRN Hypoglycemia Simple Syrup 30 ml 07/30/18 13:59 Simple Syrup FEEDTUBE PRN PRN Hypoglycemia Sodium Bicarbonate 325 mg 07/30/18 13:59 Sodium Bicarbonate FEEDTUBE PRN PRN For Clogged Feeding Tube Sodium Chloride 10 ml 07/30/18 10:00 07/31/18 10:18 Sodium Chloride Flush Syringe 10 Ml IV 10 ml BID NORA Administration Sodium Chloride 10 ml 07/30/18 02:50 Sodium Chloride Flush Syringe 10 Ml IV PRN PRN LINE FLUSH Zinc Sulfate 220 mg 07/30/18 10:00 07/30/18 11:06 Zinc Sulfate PO 220 mg QDAY NORA Administration
[2018-07-31 11:03] LABS: Creatinine,Urine 27.3 mg/dL (0.1-20.0)
[2018-07-31] MEDS: ZINC SULFATE PO SCH (11:06)
[2018-07-31] MEDS ORDERED: SIMPLE SYRUP FEEDTUBE PRN ×2 (11:44)
[2018-07-31] MEDS ORDERED: PANCREAZE DR 10,500 UNIT FEEDTUBE PRN (11:44)
[2018-07-31] MEDS ORDERED: SODIUM BICARBONATE FEEDTUBE PRN (11:44)
[2018-07-31] MEDS ORDERED: ZOSYN/NS 2.25 GM/50ML 2.25 GM/50 ML BAG IV SCH (12:00)
[2018-07-31] MEDS: VANCOMYCIN 1,250 MG in NACL 0.9% 250ML 250 ML IV SCH (12:08)
[2018-07-31] MEDS: HumuLIN R SUB-Q SCH ×2 (12:43→22:59)
[2018-07-31] MEDS: FLAGYL 500 MG/100 ML 500 MG/100 ML BAG IV SCH (14:56)
--- NOTE | 2018-07-31 16:59 | Progress Note ---
Assessment and Plan Assessment and plan: Septic shock, source could be decubitus ulcer Bacteremia - Patient is on IV cefepime and vancomycin -Culture is positive for Gram-negative rods and Streptococcus -ID consult -Patient was still on Levophed Septic arthritis - Could be due to decubitus ulcer - Continue IV antibiotics, orthopedics consulted Symptomatic anemia; patient was transfused with packed RBC and posttransfusion hemoglobin was 8.2, we'll continue to monitor Acute renal failure - Nephrology consulted, avoid nephrotoxins, IV fluids Patient is bedbound, contracted extremities - Continue supportive care Multiple decubitus ulcer - Followed by Dr. Man as outpatient - We'll put wound consult DVT prophylaxis - SCDs because of severe anemia Disposition - Continue ICU care The high probability of a clinically significant, sudden or life threatening deterioration of the [CVS] system(s) required my full and direct attention, inte rvention and personal management. The aggregate critical care time was [31] minutes. This time is in addition to time spent performing reported procedures but includes the following: [x] Data Review and interpretation [x] Patient assessment and monitoring of vital signs [x] Documentation [x] Medication orders and management History Interval history: Patient was seen and evaluated this morning, patient was admitted and oriented. Patient complains pain. Hospitalist Physical - Physical exam Narrative exam: Not in cardiopulmonary distress. The patient appeared well nourished and normally developed. Vital signs as documented. Head exam is unremarkable. No scleral icterus . Neck is without jugular venous distension, thyromegaly, or carotid bruits. Lungs are clear to auscultation. Cardiac exam reveals regular rate and Rhythm. First and second heart sounds normal. No murmurs, rubs or gallops. Abdominal exam reveals normal bowel sounds, no masses, no organomegaly and no aortic enlargement. Extremities contracted. [employer]: Contracted Skin; multiple decubitus ulcer present on admission - Constitutional Vitals: Temp Pulse Resp BP Pulse Ox 99.6 F 88 37 H 116/55 96 07/30/18 19:20 07/31/18 15:50 07/31/18 15:50 07/31/18 15:50 07/31/18 15:50 General appearance: Present: no acute distress, cachectic Results - Labs CBC & Chem 7: 07/31/18 04:25 07/31/18 04:25 Labs: Laboratory Last Values WBC 17.2 K/mm3 (4.5-11.0) H 07/31/18 04:25 RBC 3.74 M/mm3 (3.65-5.03) 07/31/18 04:25 Hgb 10.5 gm/dl (11.8-15.2) L 07/31/18 04:25 Hct 32.0 % (35.5-45.6) L 07/31/18 04:25 MCV 86 fl (84-94) 07/31/18 04:25 MCH 28 pg (28-32) 07/31/18 04:25 MCHC 33 % (32-34) 07/31/18 04:25 RDW 15.7 % (13.2-15.2) H 07/31/18 04:25 Plt Count 385 K/mm3 (140-440) 07/31/18 04:25 Lymph % (Auto) 3.2 % (13.4-35.0) L 07/31/18 04:25 [place] % (Auto) 8.4 % (0.0-7.3) H 07/31/18 04:25 Eos % (Auto) 0.4 % (0.0-4.3) 07/31/18 04:25 Baso % (Auto) 0.3 % (0.0-1.8) 07/31/18 04:25 Lymph # 0.6 K/mm3 (1.2-5.4) L 07/31/18 04:25 [place] # 1.4 K/mm3 (0.0-0.8) H 07/31/18 04:25 Eos # 0.1 K/mm3 (0.0-0.4) 07/31/18 04:25 Baso # 0.1 K/mm3 (0.0-0.1) 07/31/18 04:25 Seg Neutrophils % 87.7 % (40.0-70.0) H 07/31/18 04:25 Seg Neutrophils # 15.1 K/mm3 (1.8-7.7) H 07/31/18 04:25 Sodium 148 mmol/L (137-145) H 07/31/18 04:25 Potassium 4.1 mmol/L (3.6-5.0) 07/31/18 04:25 Chloride 120.4 mmol/L (98-107) H 07/31/18 04:25 Carbon Dioxide 15 mmol/L (22-30) L 07/31/18 04:25 Anion Gap 17 mmol/L 07/31/18 04:25 BUN 75 mg/dL (9-20) H 07/31/18 04:25 Creatinine 1.9 mg/dL (0.8-1.5) H 07/31/18 04:25 Estimated GFR 43 ml/min 07/31/18 04:25 BUN/Creatinine Ratio 39 % 07/31/18 04:25 Glucose 170 mg/dL (75-100) H 07/31/18 04:25 Lactic Acid 1.60 mmol/L (0.7-2.0) 07/30/18 03:26 Calcium 8.7 mg/dL (8.4-10.2) 07/31/18 04:25 Phosphorus 4.10 mg/dL (2.5-4.5) 07/31/18 04:25 Magnesium 2.70 mg/dL (1.7-2.3) H 07/31/18 04:25 Total Bilirubin 0.40 mg/dL (0.1-1.2) 07/31/18 04:25 AST 57 units/L (5-40) H 07/31/18 04:25 ALT 76 units/L (7-56) H 07/31/18 04:25 Alkaline Phosphatase 379 units/L (35-129) H 07/31/18 04:25 Total Protein 6.6 g/dL (6.3-8.2) 07/31/18 04:25 Albumin 1.8 g/dL (3.9-5) L 07/31/18 04:25 Albumin/Globulin Ratio 0.4 % 07/31/18 04:25 Urine Color [place] (Yellow) 07/29/18 21:33 Urine Turbidity Cloudy (Clear) 07/29/18 21:33 Urine pH 5.0 (5.0-7.0) 07/29/18 21:33 Ur Specific [place] 1.028 (1.003-1.030) 07/29/18 21:33 Urine Protein 100 mg/dl mg/dL (Negative) 07/29/18 21:33 Urine Glucose (UA) Neg mg/dL (Negative) 07/29/18 21:33 Urine Ketones Neg mg/dL (Negative) 07/29/18 21:33 Urine Blood Mod (Negative) 07/29/18 21:33 Urine Nitrite Neg (Negative) 07/29/18 21:33 Urine Bilirubin Neg (Negative) 07/29/18 21:33 Urine Urobilinogen 2.0 mg/dL (<2.0) 07/29/18 21:33 Ur Leukocyte Esterase Lg (Negative) 07/29/18 21:33 Urine WBC (Auto) > 182.0 /HPF (0.0-6.0) H 07/29/18 21:33 Urine RBC (Auto) > 182.0 /HPF (0.0-6.0) 07/29/18 21:33 Urine Bacteria (Auto) 4+ /HPF (Negative) 07/29/18 21:33 Urine WBC Clumps 3+ /HPF 07/29/18 21:33 Urine Mucus Few /HPF 07/29/18 21:33 Urine Eosinophils None seen (None Seen) 07/31/18 Unknown Urine Creatinine 27.3 mg/dL (0.1-20.0) H 07/31/18 Unknown Urine Sodium 99 mmol/L 07/31/18 Unknown Blood Type O POSITIVE 07/30/18 03:26 Antibody Screen Negative 07/30/18 03:26 Crossmatch See Detail 07/30/18 03:26 Nutrition/Malnutrition Assess - Dietary Evaluation Nutrition/Malnutrition Findings: Nutrition Notes Start: 07/30/18 09:58 Freq: Status: Active Protocol: Document 07/31/18 14:50 OL (Rec: 07/31/18 14:51 OL [id number]) Nutrition Notes Subjective/Other Information RD consult for TF. TF order already in place. RD will continue to follow. Nutrition Intervention Follow-Up By: 08/01/18 Additional Comments f/u: new TF
[2018-08-01] MEDS: HumuLIN R SUB-Q SCH ×4 (00:11→18:09)
[2018-08-01] MEDS: FLAGYL 500 MG/100 ML 500 MG/100 ML BAG IV SCH ×2 (00:22→05:41)
[2018-08-01 06:15] LABS: Basophils # (Auto) 0.1 K/mm3 (0.0-0.1); Basophils % (Auto) 0.6 % (0.0-1.8); Eosinophils # (Auto) 0.2 K/mm3 (0.0-0.4); Eosinophils % (Auto) 1.5 % (0.0-4.3); Hematocrit 32.3 % (35.5-45.6); Hemoglobin 10.4 gm/dl (11.8-15.2); Lymphocytes # (Auto) 0.8 K/mm3 (1.2-5.4); Lymphocytes % (Auto) 5.7 % (13.4-35.0); Mean Corpuscular HGB Conc 32 % (32-34); Mean Corpuscular Volume 87 fl (84-94); Monocytes # (Auto) 1.5 K/mm3 (0.0-0.8); Monocytes % (Auto) 10.5 % (0.0-7.3); Platelet Count 352 K/mm3 (140-440); Red Cell Distribution Width 16.5 % (13.2-15.2)
[2018-08-01 06:24] LABS: BUN/Creatinine Ratio 50; Blood Urea Nitrogen 60 mg/dL (9-20); Calcium 9.1 mg/dL (8.4-10.2); Hemolysis Index 16
[2018-08-01] MEDS: KEPPRA PO SCH ×2 (06:24→18:10)
[2018-08-01] MEDS: NACL 0.45% 1000 ML 1,000 ML IV SCH ×3 (07:32→18:02)
[2018-08-01] MEDS: LEVOPHED 8 MG in NACL 0.9% 250ML 242 ML IV SCH (08:00)
--- NOTE | 2018-08-01 08:27 | Progress Note ---
Assessment and Plan 1. Acute kidney injury: Vasomotor / hemodynamic MÓNICA in the setting of hypotension, sepsis and volume depletion. CT abdomen was negative for hydronephrosis. Continue IV fluids. Renal function improving. Monitor renal function. Avoid nephrotoxic agents. Meds dosage based on GFR. 2. FEN: Hypernatremia, improved. Metabolic acidosis. Monitor lytes. 3. Sepsis with shock: On Levophed. 4. Anemia: S/p PRBC. 5. Multiple decubitus ulcers. 6. Shock Liver. Subjective Date of service: 08/01/18 Interval history: Patient was seen and examined at the bedside. Objective - Vital Signs Vital signs: Vital Signs - 12hr 07/31/18 07/31/18 07/31/18 20:30 20:40 20:50 Temperature Pulse Rate 61 62 61 Pulse Rate [ Right Radial] Respiratory 23 18 14 Rate Respiratory Rate [ Generalized] Blood Pressure 118/57 129/57 121/57 O2 Sat by Pulse 99 99 99 Oximetry 07/31/18 07/31/18 07/31/18 21:00 21:10 21:20 Temperature Pulse Rate 61 63 61 Pulse Rate [ Right Radial] Respiratory 20 21 24 Rate Respiratory Rate [ Generalized] Blood Pressure 119/58 119/58 114/58 O2 Sat by Pulse 99 99 98 Oximetry 07/31/18 07/31/18 07/31/18 21:30 21:40 21:50 Temperature Pulse Rate 61 75 61 Pulse Rate [ Right Radial] Respiratory 25 H 33 H 25 H Rate Respiratory Rate [ Generalized] Blood Pressure 114/58 119/58 103/41 O2 Sat by Pulse 99 95 96 Oximetry 07/31/18 07/31/18 07/31/18 22:00 22:10 22:20 Temperature Pulse Rate 64 64 58 L Pulse Rate [ Right Radial] Respiratory 23 21 19 Rate Respiratory 26 H Rate [ Generalized] Blood Pressure 93/28 93/28 104/40 O2 Sat by Pulse 97 97 98 Oximetry 07/31/18 07/31/18 07/31/18 22:30 22:38 22:40 Temperature Pulse Rate 66 65 68 Pulse Rate [ Right Radial] Respiratory 24 25 H 22 Rate Respiratory Rate [ Generalized] Blood Pressure 97/37 97/37 97/37 O2 Sat by Pulse 97 96 96 Oximetry 07/31/18 07/31/18 07/31/18 22:50 23:00 23:11 Temperature Pulse Rate 65 65 63 Pulse Rate [ 64 Right Radial] Respiratory 24 22 22 Rate Respiratory Rate [ Generalized] Blood Pressure 95/41 102/46 95/41 O2 Sat by Pulse 97 97 98 Oximetry 07/31/18 07/31/18 07/31/18 23:21 23:31 23:41 Temperature Pulse Rate 64 67 69 Pulse Rate [ Right Radial] Respiratory 22 27 H 26 H Rate Respiratory Rate [ Generalized] Blood Pressure 103/43 87/41 87/41 O2 Sat by Pulse 98 98 97 Oximetry 07/31/18 08/01/18 08/01/18 23:51 00:00 00:11 Temperature 99.1 F Pulse Rate 67 75 67 Pulse Rate [ Right Radial] Respiratory 24 26 H 27 H Rate Respiratory Rate [ Generalized] Blood Pressure 91/34 83/43 96/34 O2 Sat by Pulse 97 98 97 Oximetry 08/01/18 08/01/18 08/01/18 00:21 00:30 00:41 Temperature Pulse Rate 68 66 63 Pulse Rate [ Right Radial] Respiratory 30 H 29 H 31 H Rate Respiratory Rate [ Generalized] Blood Pressure 109/57 115/60 115/60 O2 Sat by Pulse 97 98 98 Oximetry 08/01/18 08/01/18 08/01/18 00:51 01:01 01:11 Temperature Pulse Rate 64 64 63 Pulse Rate [ Right Radial] Respiratory 28 H 32 H 32 H Rate Respiratory Rate [ Generalized] Blood Pressure 115/60 114/59 114/59 O2 Sat by Pulse 98 98 99 Oximetry 08/01/18 08/01/18 08/01/18 01:21 01:31 01:41 Temperature Pulse Rate 65 64 64 Pulse Rate [ Right Radial] Respiratory 20 28 H 32 H Rate Respiratory Rate [ Generalized] Blood Pressure 115/59 119/60 119/60 O2 Sat by Pulse 99 99 99 Oximetry 08/01/18 08/01/18 08/01/18 01:51 02:00 02:11 Temperature Pulse Rate 64 64 66 Pulse Rate [ Right Radial] Respiratory 27 H 26 H 15 Rate Respiratory Rate [ Generalized] Blood Pressure 118/59 118/59 114/60 O2 Sat by Pulse 98 98 98 Oximetry 08/01/18 08/01/18 08/01/18 02:20 02:30 02:41 Temperature Pulse Rate 65 65 65 Pulse Rate [ Right Radial] Respiratory 16 26 H 26 H Rate Respiratory Rate [ Generalized] Blood Pressure 114/60 119/61 119/61 O2 Sat by Pulse 99 98 98 Oximetry 08/01/18 08/01/18 08/01/18 02:51 03:00 03:11 Temperature Pulse Rate 66 67 65 Pulse Rate [ 66 Right Radial] Respiratory 25 H 26 H 25 H Rate Respiratory Rate [ Generalized] Blood Pressure 119/61 118/60 118/60 O2 Sat by Pulse 99 98 99 Oximetry 08/01/18 08/01/18 08/01/18 03:21 03:30 03:41 Temperature Pulse Rate 66 66 67 Pulse Rate [ Right Radial] Respiratory 21 20 19 Rate Respiratory Rate [ Generalized] Blood Pressure 124/63 116/58 116/58 O2 Sat by Pulse 98 98 98 Oximetry 08/01/18 08/01/18 08/01/18 03:51 04:00 04:11 Temperature 98.1 F Pulse Rate 80 65 61 Pulse Rate [ Right Radial] Respiratory 20 27 H 26 H Rate Respiratory Rate [ Generalized] Blood Pressure 119/63 117/56 117/56 O2 Sat by Pulse 96 95 96 Oximetry 08/01/18 08/01/18 08/01/18 04:21 04:30 04:41 Temperature Pulse Rate 62 65 63 Pulse Rate [ Right Radial] Respiratory 29 H 25 H 25 H Rate Respiratory Rate [ Generalized] Blood Pressure 120/51 122/54 122/54 O2 Sat by Pulse 96 97 95 Oximetry 08/01/18 08/01/18 08/01/18 04:51 05:00 05:11 Temperature Pulse Rate 70 76 75 Pulse Rate [ Right Radial] Respiratory 28 H 25 H 35 H Rate Respiratory Rate [ Generalized] Blood Pressure 121/54 129/67 129/67 O2 Sat by Pulse 95 96 93 Oximetry 08/01/18 08/01/18 08/01/18 05:21 05:30 05:41 Temperature Pulse Rate 77 78 81 Pulse Rate [ Right Radial] Respiratory 29 H 36 H 18 Rate Respiratory Rate [ Generalized] Blood Pressure 113/61 125/68 125/68 O2 Sat by Pulse 91 94 95 Oximetry 08/01/18 08/01/18 08/01/18 05:51 06:00 06:11 Temperature Pulse Rate 84 84 85 Pulse Rate [ Right Radial] Respiratory 34 H 38 H 20 Rate Respiratory Rate [ Generalized] Blood Pressure 133/64 131/78 131/78 O2 Sat by Pulse 93 93 92 Oximetry 08/01/18 08/01/18 08/01/18 06:21 06:30 06:41 Temperature Pulse Rate 86 82 82 Pulse Rate [ Right Radial] Respiratory 21 27 H 35 H Rate Respiratory Rate [ Generalized] Blood Pressure 137/64 132/67 132/67 O2 Sat by Pulse 92 95 94 Oximetry 08/01/18 08/01/18 08/01/18 06:51 07:00 07:11 Temperature Pulse Rate 86 82 83 Pulse Rate [ Right Radial] Respiratory 36 H 22 35 H Rate Respiratory Rate [ Generalized] Blood Pressure 136/70 132/68 132/68 O2 Sat by Pulse 94 95 94 Oximetry 08/01/18 07:21 Temperature Pulse Rate 87 Pulse Rate [ Right Radial] Respiratory 32 H Rate Respiratory Rate [ Generalized] Blood Pressure 134/67 O2 Sat by Pulse 94 Oximetry - General Appearance General appearance: well-developed, appears stated age, frail, other (not in distress) EENT: ATNC, PERRL Neck: other (Trachea midline) Respiratory: Present: Clear to Ascultation Cardiology: regular, S1S2, no murmurs Gastrointestinal: normoactive bowel sounds, no tenderness, no distended, other (PEG tube noted) Integumentary: ulcer, decubiti Neurologic: other (not following any command) Musculoskeletal: other (contractures noted) - Lab 08/01/18 05:45 08/01/18 05:45 Most recent lab results Calcium 9.1 mg/dL (8.4-10.2) 08/01/18 05:45 Phosphorus 4.10 mg/dL (2.5-4.5) 07/31/18 04:25 Magnesium 2.70 mg/dL (1.7-2.3) H 07/31/18 04:25 Urine Creatinine 27.3 mg/dL (0.1-20.0) H 07/31/18 Unknown Urine Sodium 99 mmol/L 07/31/18 Unknown Medications & Allergies - Medications Allergies/Adverse Reactions: Allergies tramadol Allergy (Verified 07/29/18 18:39) Unknown Home Medications: Home Medications Medication Instructions Recorded Confirmed Last Taken Type amLODIPine [Norvasc] 10 mg NGTUBE DAILY 06/02/16 07/30/18 Unknown History Multivit-Min/Iron Fum/Folic AC 1 each PO DAILY 03/24/18 07/30/18 Unknown History [Hzdez-Lbttker-Asheogfy Tablet] Carvedilol [Coreg] 6.25 mg PO Q12H 06/13/18 07/30/18 Unknown History Acetaminophen 650 mg NGTUBE Q6H PRN 07/30/18 07/30/18 Unknown History Apixaban [Eliquis] 2.5 mg PO Q12H 07/30/18 07/30/18 Unknown History AtorvaSTATin [Lipitor] 40 mg NGTUBE QHS 07/30/18 07/30/18 Unknown History Dutasteride 0.5 mg NGTUBE QAM 07/30/18 07/30/18 Unknown History Furosemide [Lasix TAB] 40 mg PO QDAY 07/30/18 07/30/18 Unknown History Ipratropium/Albuterol Sulfate 1 ampul IH BID 07/30/18 07/30/18 Unknown History [DUONEB *Not for PRN Use*] Lisinopril [Zestril TAB] 40 mg PO QDAY 07/30/18 07/30/18 Unknown History Oxycodone HCl/Acetaminophen 1 each PO Q8HR PRN 07/30/18 07/30/18 Unknown History [Percocet 7.5/325 mg] Tamsulosin [Flomax] 0.4 mg PO QDAY 07/30/18 07/30/18 Unknown History Vit C/Ascorbate Calcium,Sodium 500 mg NGTUBE BID 07/30/18 07/30/18 Unknown History [Vitamin C 500 mg/15 ml Liquid] Zinc Sulfate 220 mg NGTUBE QDAY 07/30/18 07/30/18 Unknown History diphenhydrAMINE [Benadryl CAP] 25 mg NGTUBE Q6H PRN 07/30/18 07/30/18 Unknown History levETIRAcetam [Keppra INJ] 500 mg PO Q12H 07/30/18 07/30/18 Unknown History Active Medications: Generic Name Dose Route Start Last Admin Trade Name Freq PRN Reason Stop Dose Admin Acetaminophen 650 mg 07/30/18 02:50 07/31/18 16:36 Tylenol PO 650 mg Q4H PRN Administration Pain MILD(1-3)/Fever >100.5/PRICE Lipase/Protease/Amylase 1 each 07/30/18 13:[address] 10,500 Unit FEEDTUBE PRN PRN For Clogged Feeding Tube Ascorbic Acid 500 mg 07/30/18 10:00 07/31/18 22:00 Vitamin C PO 500 mg BID NORA Administration Dextrose 50 ml 07/30/18 02:56 D50w (25gm) Syringe IV PRN PRN Hypoglycemia Norepinephrine 8 mg/ Sodium 250 mls @ 3.75 mls/hr 07/29/18 23:00 08/01/18 06:28 Chloride IV 8 mcg/min TITR NORA 15 mls/hr Titration Protocol 2 MCG/MIN Sodium Chloride 1,000 mls @ 150 mls/hr 07/30/18 13:00 08/01/18 07:32 Nacl 0.45% 1000 Ml IV 150 mls/hr DIRECT NORA Administration Dopamine HCl/Dextrose 800 mg in 250 mls @ 2.193 mls/hr 07/31/18 02:00 07/31/18 09:08 Intropin Drip 800 Mg/D5w 250 Ml IV 0 mcg/kg/min TITR NORA 0 mls/hr Titration Protocol 2 MCG/KG/MIN Vancomycin HCl 1,250 mg/ 275 mls @ 166.667 mls/hr 07/31/18 12:00 07/31/18 12:08 Sodium Chloride IV 166.667 mls/hr Q24HR NORA Administration Metronidazole 500 mg in 100 mls @ 100 mls/hr 07/31/18 14:00 08/01/18 05:41 Flagyl 500 Mg/100 Ml IV 100 mls/hr Q8HR NORA Administration Cefepime HCl 2 gm in 100 mls @ 200 mls/hr 08/01/18 10:00 Maxipime/Ns 2 Gm/100 Ml IV Q12HR NORA Insulin Human Regular 0 units 07/31/18 12:00 08/01/18 05:40 Humulin R SUB-Q Not Given Q6HR NORA Protocol Levetiracetam 500 mg 07/30/18 06:00 08/01/18 06:24 Keppra PO 500 mg Q12H NORA Administration Ondansetron HCl 4 mg 07/30/18 02:50 Zofran IV Q8H PRN Nausea And Vomiting Simple Syrup 15 ml 07/30/18 13:59 Simple Syrup FEEDTUBE PRN PRN Hypoglycemia Simple Syrup 30 ml 07/30/18 13:59 Simple Syrup FEEDTUBE PRN PRN Hypoglycemia Sodium Bicarbonate 325 mg 07/30/18 13:59 Sodium Bicarbonate FEEDTUBE PRN PRN For Clogged Feeding Tube Sodium Chloride 10 ml 07/30/18 10:00 07/31/18 22:00 Sodium Chloride Flush Syringe 10 Ml IV 10 ml BID NORA Administration Sodium Chloride 10 ml 07/30/18 02:50 Sodium Chloride Flush Syringe 10 Ml IV PRN PRN LINE FLUSH Zinc Sulfate 220 mg 07/30/18 10:00 07/31/18 11:06 Zinc Sulfate PO 220 mg QDAY NORA Administration
[2018-08-01] MEDS: SODIUM CHLORIDE FLUSH SYRINGE 10 ML IV SCH ×2 (10:00→22:48)
[2018-08-01] MEDS: VITAMIN C PO SCH ×2 (10:00→22:48)
[2018-08-01] MEDS ORDERED: MAXIPIME/NS 2 GM/100 ML 2 GM/100 ML BAG IV SCH (10:00)
[2018-08-01] MEDS: ZINC SULFATE PO SCH (10:00)
[2018-08-01] MEDS: VANCOMYCIN 1,250 MG in NACL 0.9% 250ML 250 ML IV SCH (10:35)
--- NOTE | 2018-08-01 11:10 | Progress Note ---
Assessment and Plan 67 male with chronic anemia and chronic hypotension 1. Continue to wean pressors. Asked nurse to call me if pressure drops on 2, may just need volume before we go up on levophed 2. Follow up ID recs to see if they agree with current abx regimen 3. Wean Pressors for MAPS >65 4. Feed patient, tolerating 5. Add sliding scale insulin coverage 6. Will transfer once off pressors CCt 31 minutes Subjective Date of service: 08/01/18 Interval history: No acute events. Remains on pressors but down to 2 mcgs now. Awake. No family present. Now with Polymicrobials growing in blood and ID to evaluate to help with abx. Objective - Constitutional Vitals: Vital Signs - 12hr 07/31/18 07/31/18 07/31/18 23:11 23:21 23:31 Temperature Pulse Rate 63 64 67 Pulse Rate [ Right Radial] Respiratory 22 22 27 H Rate Blood Pressure 95/41 103/43 87/41 O2 Sat by Pulse 98 98 98 Oximetry 07/31/18 07/31/18 08/01/18 23:41 23:51 00:00 Temperature 99.1 F Pulse Rate 69 67 75 Pulse Rate [ Right Radial] Respiratory 26 H 24 26 H Rate Blood Pressure 87/41 91/34 83/43 O2 Sat by Pulse 97 97 98 Oximetry 08/01/18 08/01/18 08/01/18 00:11 00:21 00:30 Temperature Pulse Rate 67 68 66 Pulse Rate [ Right Radial] Respiratory 27 H 30 H 29 H Rate Blood Pressure 96/34 109/57 115/60 O2 Sat by Pulse 97 97 98 Oximetry 08/01/18 08/01/18 08/01/18 00:41 00:51 01:01 Temperature Pulse Rate 63 64 64 Pulse Rate [ Right Radial] Respiratory 31 H 28 H 32 H Rate Blood Pressure 115/60 115/60 114/59 O2 Sat by Pulse 98 98 98 Oximetry 08/01/18 08/01/18 08/01/18 01:11 01:21 01:31 Temperature Pulse Rate 63 65 64 Pulse Rate [ Right Radial] Respiratory 32 H 20 28 H Rate Blood Pressure 114/59 115/59 119/60 O2 Sat by Pulse 99 99 99 Oximetry 08/01/18 08/01/18 08/01/18 01:41 01:51 02:00 Temperature Pulse Rate 64 64 64 Pulse Rate [ Right Radial] Respiratory 32 H 27 H 26 H Rate Blood Pressure 119/60 118/59 118/59 O2 Sat by Pulse 99 98 98 Oximetry 08/01/18 08/01/18 08/01/18 02:11 02:20 02:30 Temperature Pulse Rate 66 65 65 Pulse Rate [ Right Radial] Respiratory 15 16 26 H Rate Blood Pressure 114/60 114/60 119/61 O2 Sat by Pulse 98 99 98 Oximetry 08/01/18 08/01/18 08/01/18 02:41 02:51 03:00 Temperature Pulse Rate 65 66 67 Pulse Rate [ 66 Right Radial] Respiratory 26 H 25 H 26 H Rate Blood Pressure 119/61 119/61 118/60 O2 Sat by Pulse 98 99 98 Oximetry 08/01/18 08/01/18 08/01/18 03:11 03:21 03:30 Temperature Pulse Rate 65 66 66 Pulse Rate [ Right Radial] Respiratory 25 H 21 20 Rate Blood Pressure 118/60 124/63 116/58 O2 Sat by Pulse 99 98 98 Oximetry 08/01/18 08/01/18 08/01/18 03:41 03:51 04:00 Temperature 98.1 F Pulse Rate 67 80 65 Pulse Rate [ Right Radial] Respiratory 19 20 27 H Rate Blood Pressure 116/58 119/63 117/56 O2 Sat by Pulse 98 96 95 Oximetry 08/01/18 08/01/18 08/01/18 04:11 04:21 04:30 Temperature Pulse Rate 61 62 65 Pulse Rate [ Right Radial] Respiratory 26 H 29 H 25 H Rate Blood Pressure 117/56 120/51 122/54 O2 Sat by Pulse 96 96 97 Oximetry 08/01/18 08/01/18 08/01/18 04:41 04:51 05:00 Temperature Pulse Rate 63 70 76 Pulse Rate [ Right Radial] Respiratory 25 H 28 H 25 H Rate Blood Pressure 122/54 121/54 129/67 O2 Sat by Pulse 95 95 96 Oximetry 08/01/18 08/01/18 08/01/18 05:11 05:21 05:30 Temperature Pulse Rate 75 77 78 Pulse Rate [ Right Radial] Respiratory 35 H 29 H 36 H Rate Blood Pressure 129/67 113/61 125/68 O2 Sat by Pulse 93 91 94 Oximetry 08/01/18 08/01/18 08/01/18 05:41 05:51 06:00 Temperature Pulse Rate 81 84 84 Pulse Rate [ Right Radial] Respiratory 18 34 H 38 H Rate Blood Pressure 125/68 133/64 131/78 O2 Sat by Pulse 95 93 93 Oximetry 08/01/18 08/01/18 08/01/18 06:11 06:21 06:30 Temperature Pulse Rate 85 86 82 Pulse Rate [ Right Radial] Respiratory 20 21 27 H Rate Blood Pressure 131/78 137/64 132/67 O2 Sat by Pulse 92 92 95 Oximetry 08/01/18 08/01/18 08/01/18 06:41 06:51 07:00 Temperature Pulse Rate 82 86 82 Pulse Rate [ Right Radial] Respiratory 35 H 36 H 22 Rate Blood Pressure 132/67 136/70 132/68 O2 Sat by Pulse 94 94 95 Oximetry 08/01/18 08/01/18 08/01/18 07:11 07:21 07:30 Temperature Pulse Rate 83 87 88 Pulse Rate [ Right Radial] Respiratory 35 H 32 H 15 Rate Blood Pressure 132/68 134/67 140/65 O2 Sat by Pulse 94 94 94 Oximetry 08/01/18 08/01/18 08/01/18 07:41 07:51 08:00 Temperature Pulse Rate 86 90 91 H Pulse Rate [ Right Radial] Respiratory 27 H 17 35 H Rate Blood Pressure 140/65 142/67 121/66 O2 Sat by Pulse 94 93 93 Oximetry 08/01/18 08/01/18 08/01/18 08:11 08:20 08:30 Temperature Pulse Rate 91 H 89 90 Pulse Rate [ Right Radial] Respiratory 32 H 29 H 35 H Rate Blood Pressure 121/66 120/69 123/63 O2 Sat by Pulse 92 93 93 Oximetry 08/01/18 08/01/18 08:41 08:51 Temperature Pulse Rate 88 89 Pulse Rate [ Right Radial] Respiratory 34 H 30 H Rate Blood Pressure 123/63 116/65 O2 Sat by Pulse 92 95 Oximetry - Labs CBC & Chem 7: 08/01/18 05:45 08/01/18 05:45 Labs: Abnormal lab results 07/30/18 07/30/18 07/30/18 Range/Units 04:35 09:03 12:25 WBC (4.5-11.0) K/mm3 Hgb (11.8-15.2) gm/dl Hct (35.5-45.6) % RDW (13.2-15.2) % Lymph % (Auto) (13.4-35.0) % [place] % (Auto) (0.0-7.3) % Lymph # (1.2-5.4) K/mm3 [place] # (0.0-0.8) K/mm3 Seg Neutrophils % (40.0-70.0) % Seg Neutrophils # (1.8-7.7) K/mm3 Chloride (98-107) mmol/L Carbon Dioxide (22-30) mmol/L BUN (9-20) mg/dL Glucose (75-100) mg/dL POC Glucose 124 H 136 H 113 H (70-105) 07/30/18 07/30/18 07/30/18 Range/Units 15:53 17:54 23:39 WBC (4.5-11.0) K/mm3 Hgb (11.8-15.2) gm/dl Hct (35.5-45.6) % RDW (13.2-15.2) % Lymph % (Auto) (13.4-35.0) % [place] % (Auto) (0.0-7.3) % Lymph # (1.2-5.4) K/mm3 [place] # (0.0-0.8) K/mm3 Seg Neutrophils % (40.0-70.0) % Seg Neutrophils # (1.8-7.7) K/mm3 Chloride (98-107) mmol/L Carbon Dioxide (22-30) mmol/L BUN (9-20) mg/dL Glucose (75-100) mg/dL POC Glucose 123 H 111 H 138 H (70-105) 07/31/18 07/31/18 08/01/18 Range/Units 12:32 17:59 00:06 WBC (4.5-11.0) K/mm3 Hgb (11.8-15.2) gm/dl Hct (35.5-45.6) % RDW (13.2-15.2) % Lymph % (Auto) (13.4-35.0) % [place] % (Auto) (0.0-7.3) % Lymph # (1.2-5.4) K/mm3 [place] # (0.0-0.8) K/mm3 Seg Neutrophils % (40.0-70.0) % Seg Neutrophils # (1.8-7.7) K/mm3 Chloride (98-107) mmol/L Carbon Dioxide (22-30) mmol/L BUN (9-20) mg/dL Glucose (75-100) mg/dL POC Glucose 124 H 128 H 146 H (70-105) 08/01/18 08/01/18 08/01/18 Range/Units 04:53 05:45 05:45 WBC 13.9 H (4.5-11.0) K/mm3 Hgb 10.4 L (11.8-15.2) gm/dl Hct 32.3 L (35.5-45.6) % RDW 16.5 H (13.2-15.2) % Lymph % (Auto) 5.7 L (13.4-35.0) % [place] % (Auto) 10.5 H (0.0-7.3) % Lymph # 0.8 L (1.2-5.4) K/mm3 [place] # 1.5 H (0.0-0.8) K/mm3 Seg Neutrophils % 81.7 H (40.0-70.0) % Seg Neutrophils # 11.4 H (1.8-7.7) K/mm3 Chloride 111.2 H (98-107) mmol/L Carbon Dioxide 16 L (22-30) mmol/L BUN 60 H (9-20) mg/dL Glucose 123 H (75-100) mg/dL POC Glucose 135 H (70-105) Medications & Allergies - Medications Allergies/Adverse Reactions: Allergies tramadol Allergy (Verified 07/29/18 18:39) Unknown Home Medications: Home Medications Medication Instructions Recorded Confirmed Last Taken Type amLODIPine [Norvasc] 10 mg NGTUBE DAILY 06/02/16 07/30/18 Unknown History Multivit-Min/Iron Fum/Folic AC 1 each PO DAILY 03/24/18 07/30/18 Unknown History [Gotlw-Qtenwyi-Nnznzqtz Tablet] Carvedilol [Coreg] 6.25 mg PO Q12H 06/13/18 07/30/18 Unknown History Acetaminophen 650 mg NGTUBE Q6H PRN 07/30/18 07/30/18 Unknown History Apixaban [Eliquis] 2.5 mg PO Q12H 07/30/18 07/30/18 Unknown History AtorvaSTATin [Lipitor] 40 mg NGTUBE QHS 07/30/18 07/30/18 Unknown History Dutasteride 0.5 mg NGTUBE QAM 07/30/18 07/30/18 Unknown History Furosemide [Lasix TAB] 40 mg PO QDAY 07/30/18 07/30/18 Unknown History Ipratropium/Albuterol Sulfate 1 ampul IH BID 07/30/18 07/30/18 Unknown History [DUONEB *Not for PRN Use*] Lisinopril [Zestril TAB] 40 mg PO QDAY 07/30/18 07/30/18 Unknown History Oxycodone HCl/Acetaminophen 1 each PO Q8HR PRN 07/30/18 07/30/18 Unknown History [Percocet 7.5/325 mg] Tamsulosin [Flomax] 0.4 mg PO QDAY 07/30/18 07/30/18 Unknown History Vit C/Ascorbate Calcium,Sodium 500 mg NGTUBE BID 07/30/18 07/30/18 Unknown History [Vitamin C 500 mg/15 ml Liquid] Zinc Sulfate 220 mg NGTUBE QDAY 07/30/18 07/30/18 Unknown History diphenhydrAMINE [Benadryl CAP] 25 mg NGTUBE Q6H PRN 07/30/18 07/30/18 Unknown History levETIRAcetam [Keppra INJ] 500 mg PO Q12H 07/30/18 07/30/18 Unknown History Active Medications: Generic Name Dose Route Start Last Admin Trade Name Amishq PRN Reason Stop Dose Admin Acetaminophen 650 mg 07/30/18 02:50 07/31/18 16:36 Tylenol PO 650 mg Q4H PRN Administration Pain MILD(1-3)/Fever >100.5/PRICE Lipase/Protease/Amylase 1 each 07/30/18 13:59 Pancrenomi Moore 10,500 Unit FEEDTUBE PRN PRN For Clogged Feeding Tube Ascorbic Acid 500 mg 07/30/18 10:00 08/01/18 10:00 Vitamin C PO 500 mg BID NORA Administration Dextrose 50 ml 07/30/18 02:56 D50w (25gm) Syringe IV PRN PRN Hypoglycemia Norepinephrine 8 mg/ Sodium 250 mls @ 3.75 mls/hr 07/29/18 23:00 08/01/18 09:17 Chloride IV 4 mcg/min TITR NORA 7.5 mls/hr Titration Protocol 2 MCG/MIN Sodium Chloride 1,000 mls @ 150 mls/hr 07/30/18 13:00 08/01/18 07:32 Nacl 0.45% 1000 Ml IV 150 mls/hr DIRECT NORA Administration Dopamine HCl/Dextrose 800 mg in 250 mls @ 2.193 mls/hr 07/31/18 02:00 07/31/18 09:08 Intropin Drip 800 Mg/D5w 250 Ml IV 0 mcg/kg/min TITR NORA 0 mls/hr Titration Protocol 2 MCG/KG/MIN Vancomycin HCl 1,250 mg/ 275 mls @ 166.667 mls/hr 07/31/18 12:00 08/01/18 10:35 Sodium Chloride IV 166.667 mls/hr Q24HR NORA Administration Metronidazole 500 mg in 100 mls @ 100 mls/hr 07/31/18 14:00 08/01/18 05:41 Flagyl 500 Mg/100 Ml IV 100 mls/hr Q8HR NORA Administration Cefepime HCl 2 gm in 100 mls @ 200 mls/hr 08/01/18 10:00 08/01/18 10:33 Maxipime/Ns 2 Gm/100 Ml IV 200 mls/hr Q12HR NORA Administration Insulin Human Regular 0 units 07/31/18 12:00 08/01/18 05:40 Humulin R SUB-Q Not Given Q6HR NORA Protocol Levetiracetam 500 mg 07/30/18 06:00 08/01/18 06:24 Keppra PO 500 mg Q12H NORA Administration Ondansetron HCl 4 mg 07/30/18 02:50 Zofran IV Q8H PRN Nausea And Vomiting Simple Syrup 15 ml 07/30/18 13:59 Simple Syrup FEEDTUBE PRN PRN Hypoglycemia Simple Syrup 30 ml 07/30/18 13:59 Simple Syrup FEEDTUBE PRN PRN Hypoglycemia Sodium Bicarbonate 325 mg 07/30/18 13:59 Sodium Bicarbonate FEEDTUBE PRN PRN For Clogged Feeding Tube Sodium Chloride 10 ml 07/30/18 10:00 08/01/18 10:00 Sodium Chloride Flush Syringe 10 Ml IV 10 ml BID NORA Administration Sodium Chloride 10 ml 07/30/18 02:50 Sodium Chloride Flush Syringe 10 Ml IV PRN PRN LINE FLUSH Zinc Sulfate 220 mg 07/30/18 10:00 08/01/18 10:00 Zinc Sulfate PO 220 mg QDAY NORA Administration
--- NOTE | 2018-08-01 12:06 | Consultation ---
History of Present Illness - Reason for Consult Consult date: 08/01/18 Bacteremia, septic shock Requesting physician: CAROLINE TRAMMELL - History of Present Illness The patient is a 67-year-old male who is a detention resident who has been hospitalized multiple times to this hospital in the recent past. He has a history of stroke, dementia, CHF, COPD, diabetes, multiple chronic decubitus ulcers, indwelling Bright catheter and multiple recurrent urinary tract infecti ons, previous prostate abscess, hypertension was brought to the hospital this time with fevers and hypotension. Patient was noted to be in septic shock. Started on IV fluids, along with empiric IV antibiotics. Blood cultures are positive, hence infectious diseases was consulted for additional recomm endations. Patient is a poor historian, history obtained by chart review and discussing with patient's bedside RN. Bright was apparently exchanged in ED. Review of Systems: Not obtainable due to dementia Past History Past Medical History: anemia, diabetes, heart failure, hypertension, seizures, other (Dementia, CAD, BPH, chronic birght catheter and [place] resident ) Past Surgical History: Other (debridement) Social history: other ([facility]) Medications and Allergies Allergies Allergy/AdvReac Type Severity Reaction Status Date / Time tramadol Allergy Unknown Verified 07/29/18 18:39 Home Medications Medication Instructions Recorded Confirmed Last Taken Type amLODIPine [Norvasc] 10 mg NGTUBE DAILY 06/02/16 07/30/18 Unknown History Multivit-Min/Iron Fum/Folic AC 1 each PO DAILY 03/24/18 07/30/18 Unknown History [Nttpx-Uhbbyrw-Qaeggizw Tablet] Carvedilol [Coreg] 6.25 mg PO Q12H 06/13/18 07/30/18 Unknown History Acetaminophen 650 mg NGTUBE Q6H PRN 07/30/18 07/30/18 Unknown History Apixaban [Eliquis] 2.5 mg PO Q12H 07/30/18 07/30/18 Unknown History AtorvaSTATin [Lipitor] 40 mg NGTUBE QHS 07/30/18 07/30/18 Unknown History Dutasteride 0.5 mg NGTUBE QAM 07/30/18 07/30/18 Unknown History Furosemide [Lasix TAB] 40 mg PO QDAY 07/30/18 07/30/18 Unknown History Ipratropium/Albuterol Sulfate 1 ampul IH BID 07/30/18 07/30/18 Unknown History [DUONEB *Not for PRN Use*] Lisinopril [Zestril TAB] 40 mg PO QDAY 07/30/18 07/30/18 Unknown History Oxycodone HCl/Acetaminophen 1 each PO Q8HR PRN 07/30/18 07/30/18 Unknown History [Percocet 7.5/325 mg] Tamsulosin [Flomax] 0.4 mg PO QDAY 07/30/18 07/30/18 Unknown History Vit C/Ascorbate Calcium,Sodium 500 mg NGTUBE BID 07/30/18 07/30/18 Unknown History [Vitamin C 500 mg/15 ml Liquid] Zinc Sulfate 220 mg NGTUBE QDAY 07/30/18 07/30/18 Unknown History diphenhydrAMINE [Benadryl CAP] 25 mg NGTUBE Q6H PRN 07/30/18 07/30/18 Unknown History levETIRAcetam [Keppra INJ] 500 mg PO Q12H 07/30/18 07/30/18 Unknown History Active Meds: Active Medications Acetaminophen (Tylenol) 650 mg PO Q4H PRN PRN Reason: Pain MILD(1-3)/Fever >100.5/PRICE Last Admin: 07/31/18 16:36 Dose: 650 mg Documented by: Lipase/Protease/Amylase (Pancreaze Dr 10,500 Unit) 1 each FEEDTUBE PRN PRN PRN Reason: For Clogged Feeding Tube Ascorbic Acid (Vitamin C) 500 mg PO BID NORA Last Admin: 08/01/18 10:00 Dose: 500 mg Documented by: Dextrose (D50w (25gm) Syringe) 50 ml IV PRN PRN PRN Reason: Hypoglycemia Norepinephrine 8 mg/ Sodium (Chloride) 250 mls @ 3.75 mls/hr IV TITR NORA; Protocol Last Titration: 08/01/18 09:17 Dose: 4 mcg/min, 7.5 mls/hr Documented by: Sodium Chloride (Nacl 0.45% 1000 Ml) 1,000 mls @ 150 mls/hr IV DIRECT NORA Last Admin: 08/01/18 07:32 Dose: 150 mls/hr Documented by: Dopamine HCl/Dextrose (Intropin Drip 800 Mg/D5w 250 Ml) 800 mg in 250 mls @ 2.193 mls/hr IV TITR [facility]; Protocol Last Titration: 07/31/18 09:08 Dose: 0 mcg/kg/min, 0 mls/hr Documented by: Vancomycin HCl 1,250 mg/ (Sodium Chloride) 275 mls @ 166.667 mls/hr IV Q24HR [facility] Last Admin: 08/01/18 10:35 Dose: 166.667 mls/hr Documented by: Metronidazole (Flagyl 500 Mg/100 Ml) 500 mg in 100 mls @ 100 mls/hr IV Q8HR [facility] Last Admin: 08/01/18 05:41 Dose: 100 mls/hr Documented by: Cefepime HCl (Maxipime/Ns 2 Gm/100 Ml) 2 gm in 100 mls @ 200 mls/hr IV Q12HR [facility] Last Admin: 08/01/18 10:33 Dose: 200 mls/hr Documented by: Insulin Human Regular (Humulin R) 0 units SUB-Q Q6HR [facility]; Protocol Last Admin: 08/01/18 05:40 Dose: Not Given Documented by: Levetiracetam (Keppra) 500 mg PO Q12H [facility] Last Admin: 08/01/18 06:24 Dose: 500 mg Documented by: Ondansetron HCl (Zofran) 4 mg IV Q8H PRN PRN Reason: Nausea And Vomiting Simple Syrup (Simple Syrup) 15 ml FEEDTUBE PRN PRN PRN Reason: Hypoglycemia Simple Syrup (Simple Syrup) 30 ml FEEDTUBE PRN PRN PRN Reason: Hypoglycemia Sodium Bicarbonate (Sodium Bicarbonate) 325 mg FEEDTUBE PRN PRN PRN Reason: For Clogged Feeding Tube Sodium Chloride (Sodium Chloride Flush Syringe 10 Ml) 10 ml IV BID [facility] Last Admin: 08/01/18 10:00 Dose: 10 ml Documented by: Sodium Chloride (Sodium Chloride Flush Syringe 10 Ml) 10 ml IV PRN PRN PRN Reason: LINE FLUSH Zinc Sulfate (Zinc Sulfate) 220 mg PO QDAY [facility] Last Admin: 08/01/18 10:00 Dose: 220 mg Documented by: Physical Examination - Physical Exam Narrative exam: Physical Exam: Constitutional: awake, alert, garbled speech Head, Ears, Nose: Normocephalic, atraumatic. External ears, nose normal Eyes: Conjunctivae/corneas clear. No icterus. No ptosis. Neck: Supple, no meningeal signs Oral: no thrush Cardiovascular: S1, S2 normal. Respiratory: Good air entry, clear to auscultation bilaterally GI: Soft, non-tender; bowel sounds normal. No peritoneal signs. PEG + Musculoskeletal: Multiple contractures, multiple decubitus ulcers present Skin: No rash or abscess Hem/Lymphatic: No palpable cervical or supraclavicular nodes. No lymphangitis Psych: no agitation Neurological: Awake, alert, garbled speech - Constitutional Vitals: Vital Signs Temp Pulse Resp BP Pulse Ox 98.1 F 89 30 H 116/65 95 08/01/18 04:00 08/01/18 08:51 08/01/18 08:51 08/01/18 08:51 08/01/18 08:51 Temperature -Last 24 Hours Temperature 98.1 F Temperature 99.1 F Results - Labs CBC & Chem 7: 08/01/18 05:45 08/01/18 05:45 Labs: Abnormal lab results 07/30/18 07/30/18 07/30/18 Range/Units 04:35 09:03 12:25 WBC (4.5-11.0) K/mm3 Hgb (11.8-15.2) gm/dl Hct (35.5-45.6) % RDW (13.2-15.2) % Lymph % (Auto) (13.4-35.0) % [place] % (Auto) (0.0-7.3) % Lymph # (1.2-5.4) K/mm3 [place] # (0.0-0.8) K/mm3 Seg Neutrophils % (40.0-70.0) % Seg Neutrophils # (1.8-7.7) K/mm3 Chloride (98-107) mmol/L Carbon Dioxide (22-30) mmol/L BUN (9-20) mg/dL Glucose (75-100) mg/dL POC Glucose 124 H 136 H 113 H (70-105) 07/30/18 07/30/18 07/30/18 Range/Units 15:53 17:54 23:39 WBC (4.5-11.0) K/mm3 Hgb (11.8-15.2) gm/dl Hct (35.5-45.6) % RDW (13.2-15.2) % Lymph % (Auto) (13.4-35.0) % [place] % (Auto) (0.0-7.3) % Lymph # (1.2-5.4) K/mm3 [place] # (0.0-0.8) K/mm3 Seg Neutrophils % (40.0-70.0) % Seg Neutrophils # (1.8-7.7) K/mm3 Chloride (98-107) mmol/L Carbon Dioxide (22-30) mmol/L BUN (9-20) mg/dL Glucose (75-100) mg/dL POC Glucose 123 H 111 H 138 H (70-105) 07/31/18 07/31/18 08/01/18 Range/Units 12:32 17:59 00:06 WBC (4.5-11.0) K/mm3 Hgb (11.8-15.2) gm/dl Hct (35.5-45.6) % RDW (13.2-15.2) % Lymph % (Auto) (13.4-35.0) % [place] % (Auto) (0.0-7.3) % Lymph # (1.2-5.4) K/mm3 [place] # (0.0-0.8) K/mm3 Seg Neutrophils % (40.0-70.0) % Seg Neutrophils # (1.8-7.7) K/mm3 Chloride (98-107) mmol/L Carbon Dioxide (22-30) mmol/L BUN (9-20) mg/dL Glucose (75-100) mg/dL POC Glucose 124 H 128 H 146 H (70-105) 08/01/18 08/01/18 08/01/18 Range/Units 04:53 05:45 05:45 WBC 13.9 H (4.5-11.0) K/mm3 Hgb 10.4 L (11.8-15.2) gm/dl Hct 32.3 L (35.5-45.6) % RDW 16.5 H (13.2-15.2) % Lymph % (Auto) 5.7 L (13.4-35.0) % [place] % (Auto) 10.5 H (0.0-7.3) % Lymph # 0.8 L (1.2-5.4) K/mm3 [place] # 1.5 H (0.0-0.8) K/mm3 Seg Neutrophils % 81.7 H (40.0-70.0) % Seg Neutrophils # 11.4 H (1.8-7.7) K/mm3 Chloride 111.2 H (98-107) mmol/L Carbon Dioxide 16 L (22-30) mmol/L BUN 60 H (9-20) mg/dL Glucose 123 H (75-100) mg/dL POC Glucose 135 H (70-105) - Imaging and Cardiology Chest x-ray: report reviewed, image reviewed (limited due to posture. ) CT scan - abdomen: report reviewed ( Left hip joint findings are suspicious for septic arthritis secondary to possible decubitus ulcer) Assessment and Plan Cultures: 07/29/2018 blood culture: Gram-negative rods, beta hemolytic group G Streptococcus, enterococcus species A/P: 67-year-old male who is a detention resident who has been hospitalized multiple times to this hospital in the recent past. He has a history of stroke, dementia, CHF, COPD, diabetes, multiple chronic decubitus ulcers, indwelling Bright catheter and multiple recurrent urinary tract infections, previous prostate abscess, hypertension was brought to the hospital this time with fevers and hypotension: 1) Septic shock secondary to bacteremia: Patient with gram-positive and gram- negative bacteremia. Source is probably multiple infected decubitus ulcers and also possibly UTI. 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 Since he is in septic shock, we will change cefepime and Flagyl to meropenem. 2) UTI: Bright was apparently exchanged in ED. Continue abx. 3) Extensive and multiple decubitus ulcers: Multiple hospitalizations in the recent past. Of note, during his last hospitalization in May 2018, patient was discharged with hospice. Unclear why he was rehospitalized, would strongly encourage hospice again. Continue wound care. 4) Chronic Alk phos elevation, transaminases also elevated this time probably from shock liver. 5) ?septic arthritis of left hip from decubitus ulcer: poor prognosis. Recs: we will change cefepime and Flagyl to meropenem continue Vancomycin with monitoring Of note, during his last hospitalization in May 2018, patient was discharged with hospice. Unclear why he was rehospitalized, would strongly encourage hospice again. Marcos Dillon MD [facility] C: [phone] O: [phone] F: [phone]
[2018-08-01 13:12] LABS: Chol/HDL Ratio 4.88 %
[2018-08-01] MEDS ORDERED: SODIUM BICARBONATE FEEDTUBE PRN (13:19)
[2018-08-01] MEDS ORDERED: PANCREAZE DR 10,500 UNIT FEEDTUBE PRN (13:19)
[2018-08-01] MEDS ORDERED: SIMPLE SYRUP FEEDTUBE PRN ×2 (13:19)
--- NOTE | 2018-08-01 13:44 | XRay Report ---
AP CHEST: HISTORY: Shortness of breath Mild cardiomegaly is evident. There is poor inspiration but the lungs are grossly clear. No evidence for pneumonia, large pleural effusion or pneumothorax. IMPRESSION: Cardiomegaly.
--- NOTE | 2018-08-01 14:06 | Consultation ---
History of Present Illness Consult date: 08/01/18 Consult reason: chest pain History of present illness: Patient is a 67 year old male with multiple medical problems who resides in a correction. He was admitted to this hospital 07/29 with sepsis, hypotension, severe anemia and acute kidney injury. On examination today, patient complained of chest pain thus this cardiac consultation. There is chronic elevation of troponin. An ECG is normal sinus rhythm with left bundle branch block with is chronic. Patient has had prior cardiac workup and has a history of nonichemic cardiomyopathy by a cardiac catheterization in 2014 that revealed no significant coronary artery disease, but a severe nonischemic cardiomyopathy with ejection fraction 20-25%. Most recent echocardiogram showed resolution of the cardiomyopathy ejection fraction of 50-55%. Past History Social history: other ([facility]) Medications and Allergies Allergies Allergy/AdvReac Type Severity Reaction Status Date / Time tramadol Allergy Unknown Verified 07/29/18 18:39 Home Medications Medication Instructions Recorded Confirmed Last Taken Type amLODIPine [Norvasc] 10 mg NGTUBE DAILY 06/02/16 07/30/18 Unknown History Multivit-Min/Iron Fum/Folic AC 1 each PO DAILY 03/24/18 07/30/18 Unknown History [Xqjio-Gghyjdg-Aiftvwug Tablet] Carvedilol [Coreg] 6.25 mg PO Q12H 06/13/18 07/30/18 Unknown History Acetaminophen 650 mg NGTUBE Q6H PRN 07/30/18 07/30/18 Unknown History Apixaban [Eliquis] 2.5 mg PO Q12H 07/30/18 07/30/18 Unknown History AtorvaSTATin [Lipitor] 40 mg NGTUBE QHS 07/30/18 07/30/18 Unknown History Dutasteride 0.5 mg NGTUBE QAM 07/30/18 07/30/18 Unknown History Furosemide [Lasix TAB] 40 mg PO QDAY 07/30/18 07/30/18 Unknown History Ipratropium/Albuterol Sulfate 1 ampul IH BID 07/30/18 07/30/18 Unknown History [DUONEB *Not for PRN Use*] Lisinopril [Zestril TAB] 40 mg PO QDAY 07/30/18 07/30/18 Unknown History Oxycodone HCl/Acetaminophen 1 each PO Q8HR PRN 07/30/18 07/30/18 Unknown History [Percocet 7.5/325 mg] Tamsulosin [Flomax] 0.4 mg PO QDAY 07/30/18 07/30/18 Unknown History Vit C/Ascorbate Calcium,Sodium 500 mg NGTUBE BID 07/30/18 07/30/18 Unknown History [Vitamin C 500 mg/15 ml Liquid] Zinc Sulfate 220 mg NGTUBE QDAY 07/30/18 07/30/18 Unknown History diphenhydrAMINE [Benadryl CAP] 25 mg NGTUBE Q6H PRN 07/30/18 07/30/18 Unknown History levETIRAcetam [Keppra INJ] 500 mg PO Q12H 07/30/18 07/30/18 Unknown History Active Meds: Active Medications Acetaminophen (Tylenol) 650 mg PO Q4H PRN PRN Reason: Pain MILD(1-3)/Fever >100.5/PRICE Last Admin: 07/31/18 16:36 Dose: 650 mg Documented by: Lipase/Protease/Amylase (Pancrenomi Dr 10,500 Unit) 1 each FEEDTUBE PRN PRN PRN Reason: For Clogged Feeding Tube Ascorbic Acid (Vitamin C) 500 mg PO BID NORA Last Admin: 08/01/18 10:00 Dose: 500 mg Documented by: Dextrose (D50w (25gm) Syringe) 50 ml IV PRN PRN PRN Reason: Hypoglycemia Norepinephrine 8 mg/ Sodium (Chloride) 250 mls @ 3.75 mls/hr IV TITR [facility]; Protocol Last Titration: 08/01/18 11:00 Dose: 0 mcg/min, 0 mls/hr Documented by: Sodium Chloride (Nacl 0.45% 1000 Ml) 1,000 mls @ 150 mls/hr IV DIRECT NORA Last Admin: 08/01/18 07:32 Dose: 150 mls/hr Documented by: Dopamine HCl/Dextrose (Intropin Drip 800 Mg/D5w 250 Ml) 800 mg in 250 mls @ 2.193 mls/hr IV TITR [facility]; Protocol Last Titration: 07/31/18 09:08 Dose: 0 mcg/kg/min, 0 mls/hr Documented by: Vancomycin HCl 1,250 mg/ (Sodium Chloride) 275 mls @ 166.667 mls/hr IV Q24HR [facility]A Last Infusion: 08/01/18 13:06 Dose: Infused Documented by: Meropenem 1,000 mg/ Sodium (Chloride) 100 mls @ 100 mls/hr IV Q8HR ON [facility] OF [facility]; Protocol Insulin Human Regular (Humulin R) 0 units SUB-Q Q6HR [facility] OF [facility]; Protocol Last Admin: 08/01/18 12:00 Dose: Not Given Documented by: Levetiracetam (Keppra) 500 mg PO Q12H [facility] OF [facility] Last Admin: 08/01/18 06:24 Dose: 500 mg Documented by: Ondansetron HCl (Zofran) 4 mg IV Q8H PRN PRN Reason: Nausea And Vomiting Simple Syrup (Simple Syrup) 15 ml FEEDTUBE PRN PRN PRN Reason: Hypoglycemia Simple Syrup (Simple Syrup) 30 ml FEEDTUBE PRN PRN PRN Reason: Hypoglycemia Sodium Bicarbonate (Sodium Bicarbonate) 325 mg FEEDTUBE PRN PRN PRN Reason: For Clogged Feeding Tube Sodium Chloride (Sodium Chloride Flush Syringe 10 Ml) 10 ml IV BID [facility] OF [facility] Last Admin: 08/01/18 10:00 Dose: 10 ml Documented by: Sodium Chloride (Sodium Chloride Flush Syringe 10 Ml) 10 ml IV PRN PRN PRN Reason: LINE FLUSH Zinc Sulfate (Zinc Sulfate) 220 mg PO QDAY ON [facility] OF [facility] Last Admin: 08/01/18 10:00 Dose: 220 mg Documented by: Physical Examination Vital Signs Temp Pulse Resp BP Pulse Ox 99.4 F 90 16 60/29 93 07/29/18 18:35 07/29/18 18:35 07/29/18 18:35 07/29/18 18:35 07/29/18 18:35 General appearance: no acute distress HEENT: Positive: PERRL Cardiac: Positive: Reg Rate and Rhythm Results 08/01/18 05:45 08/01/18 05:45 Lipids 08/01/18 Range/Units 05:45 Triglycerides 130 (2-149) mg/dL Cholesterol 83 (50-199) mg/dL HDL Cholesterol 17 L (40-59) mg/dL Cholesterol/HDL Ratio 4.88 % CBC 08/01/18 Range/Units 05:45 WBC 13.9 H (4.5-11.0) K/mm3 RBC 3.70 (3.65-5.03) M/mm3 Hgb 10.4 L (11.8-15.2) gm/dl Hct 32.3 L (35.5-45.6) % Plt Count 352 (140-440) K/mm3 Lymph # 0.8 L (1.2-5.4) K/mm3 [place] # 1.5 H (0.0-0.8) K/mm3 Eos # 0.2 (0.0-0.4) K/mm3 Baso # 0.1 (0.0-0.1) K/mm3 Comprehensive Metabolic Panel 08/01/18 Range/Units 05:45 Sodium 141 (137-145) mmol/L Potassium 4.2 (3.6-5.0) mmol/L Chloride 111.2 H (98-107) mmol/L Carbon Dioxide 16 L (22-30) mmol/L BUN 60 H (9-20) mg/dL Creatinine 1.2 (0.8-1.5) mg/dL Glucose 123 H (75-100) mg/dL Calcium 9.1 (8.4-10.2) mg/dL Assessment and Plan Sepsis Hypotension -on pressors Anemia Acute renal failure Chest pain, atypical Multiple decubitus ulcers Resolving nonischemic cardiomyopathy [facility] 2014 documents no significant coronary artery disease but a decreased ejection fraction 20%. echocardiogram 02/2018 revealed near resolution of cardiomyopathy, ejection fraction now 50-55%. LBBB, chronic Chronic elevated troponin Conservative cardiac management.
[2018-08-01] MEDS: MERREM 1,000 MG in NACL 0.9% 100 ML IV SCH ×2 (14:32→22:47)
--- NOTE | 2018-08-01 16:28 | Progress Note ---
Assessment and Plan Assessment and plan: Septic shock, source could be decubitus ulcer Bacteremia - Patient is on IV mropenem and vancomycin -Culture is positive for Gram-negative rods and Streptococcus -ID consult -Patient was still on Levophed Septic arthritis - Could be due to decubitus ulcer - Continue IV antibiotics, orthopedics consulted Symptomatic anemia; patient was transfused with packed RBC and posttransfusion hemoglobin was 8.2, we'll continue to monitor Acute renal failure - Nephrology consulted, avoid nephrotoxins, IV fluids Patient is bedbound, contracted extremities - Continue supportive care Multiple decubitus ulcer - Followed by Dr. Man as outpatient - We'll put wound consult chest pain, chronic elevated troponin - Cardiology consulted and recommended conservative cardiac management DVT prophylaxis - SCDs because of severe anemia Disposition - Continue ICU care The high probability of a clinically significant, sudden or life threatening deterioration of the [CVS] system(s) required my full and direct attention, intervention and personal management. The aggregate critical care time was [31] minutes. This time is in addition to time spent performing reported procedures but includes the following: [x] Data Review and interpretation [x] Patient assessment and monitoring of vital signs [x] Documentation [x] Medication orders and management History Interval history: Patient was seen and evaluated this morning, patient was admitted and oriented. Patient complains chest pain. Hospitalist Physical - Physical exam Narrative exam: Not in cardiopulmonary distress. The patient appeared well nourished and normally developed. Vital signs as documented. Head exam is unremarkable. No scleral icterus . Neck is without jugular venous distension, thyromegaly, or carotid bruits. Lungs are clear to auscultation. Cardiac exam reveals regular rate and Rhythm. First and second heart sounds normal. No murmurs, rubs or gallops. Abdominal exam reveals normal bowel sounds, no masses, no organomegaly and no aortic enlargement. Extremities contracted. [employer]: Contracted Skin; multiple decubitus ulcer present on admission - Constitutional Vitals: Temp Pulse Resp BP Pulse Ox 98.1 F 89 34 H 119/61 96 08/01/18 04:00 08/01/18 15:51 08/01/18 15:51 08/01/18 15:51 08/01/18 15:51 General appearance: Present: no acute distress Results - Labs CBC & Chem 7: 08/01/18 05:45 08/01/18 05:45 Labs: Laboratory Last Values WBC 13.9 K/mm3 (4.5-11.0) H 08/01/18 05:45 RBC 3.70 M/mm3 (3.65-5.03) 08/01/18 05:45 Hgb 10.4 gm/dl (11.8-15.2) L 08/01/18 05:45 Hct 32.3 % (35.5-45.6) L 08/01/18 05:45 MCV 87 fl (84-94) 08/01/18 05:45 MCH 28 pg (28-32) 08/01/18 05:45 MCHC 32 % (32-34) 08/01/18 05:45 RDW 16.5 % (13.2-15.2) H 08/01/18 05:45 Plt Count 352 K/mm3 (140-440) 08/01/18 05:45 Lymph % (Auto) 5.7 % (13.4-35.0) L 08/01/18 05:45 [place] % (Auto) 10.5 % (0.0-7.3) H 08/01/18 05:45 Eos % (Auto) 1.5 % (0.0-4.3) 08/01/18 05:45 Baso % (Auto) 0.6 % (0.0-1.8) 08/01/18 05:45 Lymph # 0.8 K/mm3 (1.2-5.4) L 08/01/18 05:45 [place] # 1.5 K/mm3 (0.0-0.8) H 08/01/18 05:45 Eos # 0.2 K/mm3 (0.0-0.4) 08/01/18 05:45 Baso # 0.1 K/mm3 (0.0-0.1) 08/01/18 05:45 Seg Neutrophils % 81.7 % (40.0-70.0) H 08/01/18 05:45 Seg Neutrophils # 11.4 K/mm3 (1.8-7.7) H 08/01/18 05:45 Sodium 141 mmol/L (137-145) 08/01/18 05:45 Potassium 4.2 mmol/L (3.6-5.0) 08/01/18 05:45 Chloride 111.2 mmol/L (98-107) H 08/01/18 05:45 Carbon Dioxide 16 mmol/L (22-30) L 08/01/18 05:45 Anion Gap 18 mmol/L 08/01/18 05:45 BUN 60 mg/dL (9-20) H 08/01/18 05:45 Creatinine 1.2 mg/dL (0.8-1.5) 08/01/18 05:45 Estimated GFR > 60 ml/min 08/01/18 05:45 BUN/Creatinine Ratio 50 % 08/01/18 05:45 Glucose 123 mg/dL (75-100) H 08/01/18 05:45 POC Glucose 120 (70-105) H 08/01/18 12:07 Lactic Acid 1.60 mmol/L (0.7-2.0) 07/30/18 03:26 Calcium 9.1 mg/dL (8.4-10.2) 08/01/18 05:45 Phosphorus 4.10 mg/dL (2.5-4.5) 07/31/18 04:25 Magnesium 2.70 mg/dL (1.7-2.3) H 07/31/18 04:25 Total Bilirubin 0.40 mg/dL (0.1-1.2) 07/31/18 04:25 AST 57 units/L (5-40) H 07/31/18 04:25 ALT 76 units/L (7-56) H 07/31/18 04:25 Alkaline Phosphatase 379 units/L (35-129) H 07/31/18 04:25 Troponin T 0.162 ng/mL (0.00-0.029) H* 08/01/18 05:45 Total Protein 6.6 g/dL (6.3-8.2) 07/31/18 04:25 Albumin 1.8 g/dL (3.9-5) L 07/31/18 04:25 Albumin/Globulin Ratio 0.4 % 07/31/18 04:25 Triglycerides 130 mg/dL (2-149) 08/01/18 05:45 Cholesterol 83 mg/dL (50-199) 08/01/18 05:45 LDL Cholesterol Direct 12 mg/dL (50-130) L 08/01/18 05:45 HDL Cholesterol 17 mg/dL (40-59) L 08/01/18 05:45 Cholesterol/HDL Ratio 4.88 % 08/01/18 05:45 Urine Color [place] (Yellow) 07/29/18 21:33 Urine Turbidity Cloudy (Clear) 07/29/18 21:33 Urine pH 5.0 (5.0-7.0) 07/29/18 21:33 Ur Specific [place] 1.028 (1.003-1.030) 07/29/18 21:33 Urine Protein 100 mg/dl mg/dL (Negative) 07/29/18 21:33 Urine Glucose (UA) Neg mg/dL (Negative) 07/29/18 21:33 Urine Ketones Neg mg/dL (Negative) 07/29/18 21:33 Urine Blood Mod (Negative) 07/29/18 21:33 Urine Nitrite Neg (Negative) 07/29/18 21:33 Urine Bilirubin Neg (Negative) 07/29/18 21:33 Urine Urobilinogen 2.0 mg/dL (<2.0) 07/29/18 21:33 Ur Leukocyte Esterase Lg (Negative) 07/29/18 21:33 Urine WBC (Auto) > 182.0 /HPF (0.0-6.0) H 07/29/18 21:33 Urine RBC (Auto) > 182.0 /HPF (0.0-6.0) 07/29/18 21:33 Urine Bacteria (Auto) 4+ /HPF (Negative) 07/29/18 21:33 Urine WBC Clumps 3+ /HPF 07/29/18 21:33 Urine Mucus Few /HPF 07/29/18 21:33 Urine Eosinophils None seen (None Seen) 07/31/18 Unknown Urine Creatinine 27.3 mg/dL (0.1-20.0) H 07/31/18 Unknown Urine Sodium 99 mmol/L 07/31/18 Unknown Blood Type O POSITIVE 07/30/18 03:26 Antibody Screen Negative 07/30/18 03:26 Crossmatch See Detail 07/30/18 03:26 Nutrition/Malnutrition Assess - Dietary Evaluation Nutrition/Malnutrition Findings: Nutrition Notes Start: 07/30/18 09:58 Freq: Status: Active Protocol: Document 08/01/18 13:22 OL (Rec: 08/01/18 13:25 OL [facility]-[id number]) Nutrition Notes Initial or Follow up Reassessment Current Diagnosis Coronary Artery Disease, Decubitus(Pressure Ulcer), Diabetes,Hypertension,Heart Failure Other Pertinent Diagnosis Septic shock, UTI, Seizure D/O , anemia Current Diet Promote at 75mL/hr with 50mL flush q4h or per ND Labs/Tests BUN 60 glucose 123 Pertinent Medications zinc sulfate, vitamin c Height 5 ft 10 in Weight 58.468 kg [place] Body Weight (kg) 75.45 BMI 18.5 Subjective/Other Information Promote infusing at 75mL/hr. Mario added for wound healing. Provides additional 19mg zinc Burn Absent Trauma Absent #1 Nutrition Diagnosis Malnutrition Diagnosis Progress(for reassessment Continues documentation) Is patient on ventilator? No Is Patient Ambulatory and/or Out of Bed No REE-([facility]-confined to bed) 1638.948 Kcal/Kg value to use for calculation 35 Approximate Energy Requirements Using 2046 kcal/Kg Additional Notes protein (1.5-2g/kg): 88-117g fluid: 1mL/kcal or per MD Nutrition Intervention Nutrition Support: Promote at 75mL/hr with 50mL flush q4h or per MD Kcal 1,800 Protein (gm) 113 Carbohydrates (gm) 234 Fluid (mL) 1,510 Fiber (gm) 0 Goal #1 TF tolerance Goal #2 TF to meet 100% energy and pro needs Goal #3 Wt maintenance and/or gain Follow-Up By: 08/07/18 Additional Comments f/u: stable TF
[2018-08-02] MEDS: NACL 0.45% 1000 ML 1,000 ML IV SCH (00:16)
[2018-08-02] MEDS: HumuLIN R SUB-Q SCH ×3 (01:56→20:17)
[2018-08-02 05:13] LABS: BUN/Creatinine Ratio 58; Blood Urea Nitrogen 52 mg/dL (9-20); Hemolysis Index 33
[2018-08-02] MEDS: KEPPRA PO SCH ×2 (06:14→20:21)
[2018-08-02] MEDS: MERREM 1,000 MG in NACL 0.9% 100 ML IV SCH ×2 (06:14→13:37)
--- NOTE | 2018-08-02 07:59 | Progress Note ---
Assessment and Plan 1. Acute kidney injury: Vasomotor / hemodynamic MÓNICA in the setting of hypotension, sepsis and volume depletion. CT abdomen was negative for hydronephrosis. Renal function improving. Monitor renal function. Avoid nephrotoxic agents. Meds dosage based on GFR. 2. FEN: Hypernatremia, improved. Metabolic acidosis. Edema, stop IV fluids. Monitor lytes. 3. Sepsis with shock: Off pressors. 4. Anemia: S/p PRBC. 5. Multiple decubitus ulcers. 6. Shock Liver. Subjective Date of service: 08/02/18 Interval history: Patient was seen and examined at the bedside. Objective - Vital Signs Vital signs: Vital Signs - 12hr 08/01/18 08/01/18 08/01/18 20:00 20:01 20:11 Temperature 100.1 F H Pulse Rate 86 81 Respiratory 39 H 34 H Rate Respiratory Rate [ Generalized] Blood Pressure 137/71 137/71 O2 Sat by Pulse 97 96 Oximetry 08/01/18 08/01/18 08/01/18 20:21 20:30 20:41 Temperature Pulse Rate 88 91 H 92 H Respiratory 35 H 34 H 28 H Rate Respiratory Rate [ Generalized] Blood Pressure 117/61 124/64 124/64 O2 Sat by Pulse 96 96 96 Oximetry 08/01/18 08/01/18 08/01/18 20:51 21:00 21:11 Temperature Pulse Rate 89 90 93 H Respiratory 38 H 36 H 29 H Rate Respiratory Rate [ Generalized] Blood Pressure 117/61 127/64 127/64 O2 Sat by Pulse 96 94 97 Oximetry 08/01/18 08/01/18 08/01/18 21:21 21:30 21:41 Temperature Pulse Rate 87 85 83 Respiratory 37 H 41 H 32 H Rate Respiratory Rate [ Generalized] Blood Pressure 124/64 109/65 109/65 O2 Sat by Pulse 98 98 98 Oximetry 08/01/18 08/01/18 08/01/18 21:51 22:00 22:11 Temperature Pulse Rate 83 82 81 Respiratory 26 H 33 H 33 H Rate Respiratory 35 H Rate [ Generalized] Blood Pressure 109/65 111/64 111/64 O2 Sat by Pulse 97 97 97 Oximetry 08/01/18 08/01/18 08/01/18 22:21 22:23 22:30 Temperature Pulse Rate 80 80 82 Respiratory 28 H 34 H 35 H Rate Respiratory Rate [ Generalized] Blood Pressure 114/63 114/63 111/65 O2 Sat by Pulse 97 97 96 Oximetry 08/01/18 08/01/18 08/01/18 22:40 22:41 22:51 Temperature Pulse Rate 79 80 78 Respiratory 37 H 37 H 33 H Rate Respiratory Rate [ Generalized] Blood Pressure 114/63 111/65 114/63 O2 Sat by Pulse 97 97 97 Oximetry 08/01/18 08/01/18 08/01/18 23:00 23:11 23:21 Temperature Pulse Rate 76 79 78 Respiratory 36 H 34 H 36 H Rate Respiratory Rate [ Generalized] Blood Pressure 116/64 116/64 113/67 O2 Sat by Pulse 97 96 95 Oximetry 08/01/18 08/01/18 08/01/18 23:31 23:41 23:42 Temperature 98.9 F Pulse Rate 89 83 Respiratory 40 H 37 H Rate Respiratory Rate [ Generalized] Blood Pressure 126/72 126/72 O2 Sat by Pulse 96 95 Oximetry 08/01/18 08/02/18 08/02/18 23:51 00:00 00:11 Temperature Pulse Rate 82 82 83 Respiratory 34 H 34 H 36 H Rate Respiratory Rate [ Generalized] Blood Pressure 126/72 123/59 123/59 O2 Sat by Pulse 95 96 96 Oximetry 08/02/18 08/02/18 08/02/18 00:21 00:30 00:40 Temperature Pulse Rate 83 82 82 Respiratory 31 H 31 H 30 H Rate Respiratory Rate [ Generalized] Blood Pressure 123/66 121/66 123/66 O2 Sat by Pulse 97 97 97 Oximetry 08/02/18 08/02/18 08/02/18 00:51 01:00 01:11 Temperature Pulse Rate 80 85 81 Respiratory 33 H 27 H 31 H Rate Respiratory Rate [ Generalized] Blood Pressure 119/63 126/66 126/66 O2 Sat by Pulse 97 97 97 Oximetry 08/02/18 08/02/18 08/02/18 01:21 01:30 01:41 Temperature Pulse Rate 83 82 82 Respiratory 30 H 31 H 31 H Rate Respiratory Rate [ Generalized] Blood Pressure 123/60 119/63 119/63 O2 Sat by Pulse 97 97 97 Oximetry 08/02/18 08/02/18 08/02/18 01:51 02:00 02:11 Temperature Pulse Rate 80 81 81 Respiratory 27 H 32 H 30 H Rate Respiratory Rate [ Generalized] Blood Pressure 123/64 123/64 114/62 O2 Sat by Pulse 98 97 97 Oximetry 08/02/18 08/02/18 08/02/18 02:21 02:30 02:41 Temperature Pulse Rate 81 80 86 Respiratory 30 H 28 H 33 H Rate Respiratory Rate [ Generalized] Blood Pressure 120/61 118/61 118/61 O2 Sat by Pulse 97 97 97 Oximetry 08/02/18 08/02/18 08/02/18 02:50 03:00 03:11 Temperature Pulse Rate 86 86 84 Respiratory 32 H 30 H 35 H Rate Respiratory Rate [ Generalized] Blood Pressure 116/68 110/61 110/61 O2 Sat by Pulse 97 97 97 Oximetry 08/02/18 08/02/18 08/02/18 03:19 03:21 03:30 Temperature 100.5 F H Pulse Rate 102 H 93 H Respiratory 17 44 H Rate Respiratory Rate [ Generalized] Blood Pressure 126/73 117/73 O2 Sat by Pulse 97 97 Oximetry 08/02/18 08/02/18 08/02/18 03:41 03:51 04:00 Temperature Pulse Rate 101 H 93 H 94 H Respiratory 44 H 46 H 39 H Rate Respiratory Rate [ Generalized] Blood Pressure 117/73 109/43 123/46 O2 Sat by Pulse 91 96 97 Oximetry 08/02/18 08/02/18 08/02/18 04:11 04:21 04:30 Temperature Pulse Rate 88 84 85 Respiratory 36 H 35 H 30 H Rate Respiratory Rate [ Generalized] Blood Pressure 123/46 111/65 122/70 O2 Sat by Pulse 97 96 96 Oximetry 08/02/18 08/02/18 08/02/18 04:41 04:51 05:00 Temperature Pulse Rate 83 87 Respiratory 36 H 31 H 30 H Rate Respiratory Rate [ Generalized] Blood Pressure 122/70 117/69 123/73 O2 Sat by Pulse 96 96 96 Oximetry 08/02/18 08/02/18 08/02/18 05:11 05:21 05:30 Temperature Pulse Rate 77 78 79 Respiratory 29 H 27 H 29 H Rate Respiratory Rate [ Generalized] Blood Pressure 123/73 121/69 124/69 O2 Sat by Pulse 96 96 96 Oximetry 08/02/18 08/02/18 08/02/18 05:41 05:51 06:00 Temperature Pulse Rate 79 80 80 Respiratory 29 H 21 28 H Rate Respiratory Rate [ Generalized] Blood Pressure 124/69 125/68 123/68 O2 Sat by Pulse 96 96 97 Oximetry 08/02/18 08/02/18 08/02/18 06:11 06:21 06:30 Temperature Pulse Rate 82 86 82 Respiratory 29 H 28 H 29 H Rate Respiratory Rate [ Generalized] Blood Pressure 123/68 119/72 120/68 O2 Sat by Pulse 96 96 96 Oximetry 08/02/18 08/02/18 08/02/18 06:41 06:51 07:00 Temperature Pulse Rate 81 81 80 Respiratory 29 H 27 H 33 H Rate Respiratory Rate [ Generalized] Blood Pressure 120/68 121/69 121/69 O2 Sat by Pulse 96 96 96 Oximetry - General Appearance General appearance: well-developed, appears stated age, frail, other (not in distress) EENT: ATNC, PERRL Respiratory: Present: Clear to Ascultation Cardiology: regular, S1S2, no murmurs Gastrointestinal: normoactive bowel sounds, no tenderness, no distended Integumentary: ulcer (multiple areas), decubiti Neurologic: other (not following any command, non-verbal) Musculoskeletal: other (all 4 extremities edematous) - Lab 08/01/18 05:45 08/02/18 04:31 Most recent lab results Calcium 9.0 mg/dL (8.4-10.2) 08/02/18 04:31 Phosphorus 4.10 mg/dL (2.5-4.5) 07/31/18 04:25 Magnesium 2.70 mg/dL (1.7-2.3) H 07/31/18 04:25 Urine Creatinine 27.3 mg/dL (0.1-20.0) H 07/31/18 Unknown Urine Sodium 99 mmol/L 07/31/18 Unknown Medications & Allergies - Medications Allergies/Adverse Reactions: Allergies tramadol Allergy (Verified 07/29/18 18:39) Unknown Home Medications: Home Medications Medication Instructions Recorded Confirmed Last Taken Type amLODIPine [Norvasc] 10 mg NGTUBE DAILY 06/02/16 07/30/18 Unknown History Multivit-Min/Iron Fum/Folic AC 1 each PO DAILY 03/24/18 07/30/18 Unknown History [Eczip-Zublmfh-Cewrxglh Tablet] Carvedilol [Coreg] 6.25 mg PO Q12H 06/13/18 07/30/18 Unknown History Acetaminophen 650 mg NGTUBE Q6H PRN 07/30/18 07/30/18 Unknown History Apixaban [Eliquis] 2.5 mg PO Q12H 07/30/18 07/30/18 Unknown History AtorvaSTATin [Lipitor] 40 mg NGTUBE QHS 07/30/18 07/30/18 Unknown History Dutasteride 0.5 mg NGTUBE QAM 07/30/18 07/30/18 Unknown History Furosemide [Lasix TAB] 40 mg PO QDAY 07/30/18 07/30/18 Unknown History Ipratropium/Albuterol Sulfate 1 ampul IH BID 07/30/18 07/30/18 Unknown History [DUONEB *Not for PRN Use*] Lisinopril [Zestril TAB] 40 mg PO QDAY 07/30/18 07/30/18 Unknown History Oxycodone HCl/Acetaminophen 1 each PO Q8HR PRN 07/30/18 07/30/18 Unknown History [Percocet 7.5/325 mg] Tamsulosin [Flomax] 0.4 mg PO QDAY 07/30/18 07/30/18 Unknown History Vit C/Ascorbate Calcium,Sodium 500 mg NGTUBE BID 07/30/18 07/30/18 Unknown History [Vitamin C 500 mg/15 ml Liquid] Zinc Sulfate 220 mg NGTUBE QDAY 07/30/18 07/30/18 Unknown History diphenhydrAMINE [Benadryl CAP] 25 mg NGTUBE Q6H PRN 07/30/18 07/30/18 Unknown History levETIRAcetam [Keppra INJ] 500 mg PO Q12H 07/30/18 07/30/18 Unknown History Active Medications: Generic Name Dose Route Start Last Admin Trade Name Freq PRN Reason Stop Dose Admin Acetaminophen 650 mg 07/30/18 02:50 07/31/18 16:36 Tylenol PO 650 mg Q4H PRN Administration Pain MILD(1-3)/Fever >100.5/PRICE Lipase/Protease/Amylase 1 each 07/30/18 13:59 Nickie Moore 10,500 Unit FEEDTUBE PRN PRN For Clogged Feeding Tube Ascorbic Acid 500 mg 07/30/18 10:00 08/01/18 22:48 Vitamin C PO 500 mg BID NORA Administration Dextrose 50 ml 07/30/18 02:56 D50w (25gm) Syringe IV PRN PRN Hypoglycemia Norepinephrine 8 mg/ Sodium 250 mls @ 3.75 mls/hr 07/29/18 23:00 08/01/18 11:00 Chloride IV 0 mcg/min TITR NORA 0 mls/hr Titration Protocol 2 MCG/MIN Sodium Chloride 1,000 mls @ 150 mls/hr 07/30/18 13:00 08/02/18 00:16 Nacl 0.45% 1000 Ml IV 150 mls/hr DIRECT NORA Administration Dopamine HCl/Dextrose 800 mg in 250 mls @ 2.193 mls/hr 07/31/18 02:00 07/31/18 09:08 Intropin Drip 800 Mg/D5w 250 Ml IV 0 mcg/kg/min TITR NORA 0 mls/hr Titration Protocol 2 MCG/KG/MIN Vancomycin HCl 1,250 mg/ 275 mls @ 166.667 mls/hr 07/31/18 12:00 08/01/18 13:06 Sodium Chloride IV Infused Q24HR NORA Infusion Meropenem 1,000 mg/ Sodium 100 mls @ 100 mls/hr 08/01/18 15:00 08/02/18 06:14 Chloride IV 100 mls/hr Q8HR NORA Administration Protocol Insulin Human Regular 0 units 07/31/18 12:00 08/02/18 06:14 Humulin R SUB-Q Not Given Q6HR [facility] Protocol Levetiracetam 500 mg 07/30/18 06:00 08/02/18 06:14 Keppra PO 500 mg Q12H NORA Administration Ondansetron HCl 4 mg 07/30/18 02:50 Zofran IV Q8H PRN Nausea And Vomiting Simple Syrup 15 ml 07/30/18 13:59 Simple Syrup FEEDTUBE PRN PRN Hypoglycemia Simple Syrup 30 ml 07/30/18 13:59 Simple Syrup FEEDTUBE PRN PRN Hypoglycemia Sodium Bicarbonate 325 mg 07/30/18 13:59 Sodium Bicarbonate FEEDTUBE PRN PRN For Clogged Feeding Tube Sodium Chloride 10 ml 07/30/18 10:00 08/01/18 22:48 Sodium Chloride Flush Syringe 10 Ml IV 10 ml BID NORA Administration Sodium Chloride 10 ml 07/30/18 02:50 Sodium Chloride Flush Syringe 10 Ml IV PRN PRN LINE FLUSH Zinc Sulfate 220 mg 07/30/18 10:00 08/01/18 10:00 Zinc Sulfate PO 220 mg QDAY NORA Administration
--- NOTE | 2018-08-02 09:58 | Progress Note ---
Assessment and Plan Sepsis Hypotension - on pressors Anemia Acute renal failure Chest pain, atypical Multiple decubitus ulcers Resolving nonischemic cardiomyopathy [facility] 2014 documents no significant coronary artery disease but a decreased ejection fraction 20%. echocardiogram 02/2018 revealed near resolution of cardiomyopathy, ejection fraction now 50-55%. LBBB, chronic Chronic elevated troponin Recommendations: Conservative cardiac management. Patient is not a candidate for an invasive cardiac approach due to multiple severe comorbidities Will sign off, please re-consult if needed Subjective Date of service: 08/02/18 Principal diagnosis: Chest Pain Interval history: No cardiac complaints this morning Chronically ill appearing Contracted, bedridden Objective Vital Signs Temp Pulse Pulse Resp Resp BP Pulse Ox 08/02/18 08:24 96 08/02/18 08:00 98.2 F 08/02/18 07:00 80 33 H 121/69 96 08/02/18 06:51 81 27 H 121/69 96 08/02/18 06:41 81 29 H 120/68 96 08/02/18 06:30 82 29 H 120/68 96 08/02/18 06:21 86 28 H 119/72 96 08/02/18 06:11 82 29 H 123/68 96 08/02/18 06:00 80 28 H 123/68 97 08/02/18 05:51 80 21 125/68 96 08/02/18 05:41 79 29 H 124/69 96 08/02/18 05:30 79 29 H 124/69 96 08/02/18 05:21 78 27 H 121/69 96 08/02/18 05:11 77 29 H 123/73 96 08/02/18 05:00 87 30 H 123/73 96 08/02/18 04:51 31 H 117/69 96 08/02/18 04:41 83 36 H 122/70 96 08/02/18 04:30 85 30 H 122/70 96 08/02/18 04:21 84 35 H 111/65 96 08/02/18 04:11 88 36 H 123/46 97 08/02/18 04:00 94 H 39 H 123/46 97 08/02/18 03:51 93 H 46 H 109/43 96 08/02/18 03:41 101 H 44 H 117/73 91 08/02/18 03:30 93 H 44 H 117/73 97 08/02/18 03:21 102 H 17 126/73 97 08/02/18 03:19 100.5 F H 08/02/18 03:11 84 35 H 110/61 97 08/02/18 03:00 86 30 H 110/61 97 08/02/18 02:50 86 32 H 116/68 97 08/02/18 02:41 86 33 H 118/61 97 08/02/18 02:30 80 28 H 118/61 97 08/02/18 02:21 81 30 H 120/61 97 08/02/18 02:11 81 30 H 114/62 97 08/02/18 02:00 81 32 H 123/64 97 08/02/18 01:51 80 27 H 123/64 98 08/02/18 01:41 82 31 H 119/63 97 08/02/18 01:30 82 31 H 119/63 97 08/02/18 01:21 83 30 H 123/60 97 08/02/18 01:11 81 31 H 126/66 97 08/02/18 01:00 85 27 H 126/66 97 08/02/18 00:51 80 33 H 119/63 97 08/02/18 00:40 82 30 H 123/66 97 08/02/18 00:30 82 31 H 121/66 97 08/02/18 00:21 83 31 H 123/66 97 08/02/18 00:11 83 36 H 123/59 96 08/02/18 00:00 82 34 H 123/59 96 08/01/18 23:51 82 34 H 126/72 95 08/01/18 23:42 98.9 F 08/01/18 23:41 83 37 H 126/72 95 08/01/18 23:31 89 40 H 126/72 96 08/01/18 23:21 78 36 H 113/67 95 08/01/18 23:11 79 34 H 116/64 96 08/01/18 23:00 76 36 H 116/64 97 08/01/18 22:51 78 33 H 114/63 97 08/01/18 22:41 80 37 H 111/65 97 08/01/18 22:40 79 37 H 114/63 97 08/01/18 22:30 82 35 H 111/65 96 08/01/18 22:23 80 34 H 114/63 97 08/01/18 22:21 80 28 H 114/63 97 08/01/18 22:11 81 33 H 111/64 97 08/01/18 22:00 82 33 H 35 H 111/64 97 08/01/18 21:51 83 26 H 109/65 97 08/01/18 21:41 83 32 H 109/65 98 08/01/18 21:30 85 41 H 109/65 98 08/01/18 21:21 87 37 H 124/64 98 08/01/18 21:11 93 H 29 H 127/64 97 08/01/18 21:00 90 36 H 127/64 94 08/01/18 20:51 89 38 H 117/61 96 08/01/18 20:41 92 H 28 H 124/64 96 08/01/18 20:30 91 H 34 H 124/64 96 08/01/18 20:21 88 35 H 117/61 96 08/01/18 20:11 81 34 H 137/71 96 08/01/18 20:01 86 39 H 137/71 97 08/01/18 20:00 100.1 F H 08/01/18 19:51 82 34 H 115/62 97 08/01/18 19:41 86 34 H 117/61 96 08/01/18 19:30 84 33 H 117/61 97 08/01/18 19:21 85 32 H 117/61 96 08/01/18 19:11 83 23 119/62 96 08/01/18 19:00 83 84 32 H 119/62 96 08/01/18 18:51 83 31 H 113/62 96 08/01/18 18:41 85 34 H 121/59 96 08/01/18 18:30 85 38 H 121/59 96 08/01/18 18:21 85 34 H 120/60 96 08/01/18 18:11 88 35 H 137/66 95 08/01/18 18:00 89 38 H 137/66 94 08/01/18 17:51 84 36 H 120/62 95 08/01/18 17:41 84 32 H 118/63 96 08/01/18 17:30 83 32 H 118/63 97 08/01/18 17:21 84 35 H 119/62 96 08/01/18 17:11 85 31 H 123/60 97 08/01/18 17:00 84 31 H 123/60 97 08/01/18 16:51 84 33 H 119/63 97 08/01/18 16:41 84 30 H 119/61 96 08/01/18 16:30 84 32 H 119/61 97 08/01/18 16:21 84 32 H 119/65 97 08/01/18 16:11 84 31 H 116/63 97 08/01/18 16:00 87 33 H 116/63 96 08/01/18 15:51 89 34 H 119/61 96 08/01/18 15:41 86 32 H 118/62 96 08/01/18 15:30 88 34 H 118/62 96 08/01/18 15:21 87 35 H 113/62 96 08/01/18 15:11 88 38 H 122/62 96 08/01/18 15:00 87 87 35 H 120/64 96 08/01/18 14:52 96 08/01/18 14:51 87 36 H 123/64 96 08/01/18 14:41 88 34 H 116/64 96 08/01/18 14:30 86 39 H 116/64 96 08/01/18 14:21 89 35 H 122/62 97 08/01/18 14:11 88 38 H 119/64 96 08/01/18 14:00 88 36 H 119/64 97 08/01/18 13:51 87 37 H 118/60 97 08/01/18 13:41 87 39 H 111/58 97 08/01/18 13:30 86 35 H 111/58 97 08/01/18 13:21 86 35 H 111/60 97 08/01/18 13:11 87 34 H 109/58 97 08/01/18 13:00 87 33 H 109/58 97 08/01/18 12:51 87 35 H 107/60 97 08/01/18 12:41 87 37 H 116/53 96 08/01/18 12:30 94 H 24 116/53 94 08/01/18 12:21 94 H 34 H 116/58 94 08/01/18 12:11 93 H 37 H 114/60 95 08/01/18 12:00 92 H 40 H 116/60 95 08/01/18 11:51 92 H 40 H 114/60 95 08/01/18 11:41 95 H 38 H 117/66 95 03/14/19 11:30 92 H 43 H 113/54 95 08/01/18 11:21 90 39 H 117/66 95 08/01/18 11:11 90 36 H 118/63 95 08/01/18 11:00 91 H 87 34 H 118/63 94 08/01/18 10:51 91 H 40 H 125/66 94 08/01/18 10:41 93 H 39 H 110/60 95 08/01/18 10:31 92 H 40 H 110/60 94 08/01/18 10:21 92 H 39 H 115/64 94 08/01/18 10:11 93 H 44 H 124/65 94 08/01/18 10:00 90 40 H 38 H 124/65 94 - Physical Examination HEENT: Positive: PERRL Neck: Positive: trachea midline Cardiac: Positive: Reg Rate and Rhythm Lungs: Positive: Decreased Breath Sounds - Labs and Meds Lipids 08/01/18 Range/Units 05:45 Triglycerides 130 (2-149) mg/dL Cholesterol 83 (50-199) mg/dL HDL Cholesterol 17 L (40-59) mg/dL Cholesterol/HDL Ratio 4.88 % Comprehensive Metabolic Panel 08/02/18 Range/Units 04:31 Sodium 137 (137-145) mmol/L Potassium 4.2 (3.6-5.0) mmol/L Chloride 109.6 H (98-107) mmol/L Carbon Dioxide 17 L (22-30) mmol/L BUN 52 H (9-20) mg/dL Creatinine 0.9 (0.8-1.5) mg/dL Glucose 110 H (75-100) mg/dL Calcium 9.0 (8.4-10.2) mg/dL
[2018-08-02] MEDS: VITAMIN C PO SCH (10:00)
[2018-08-02] MEDS: ZINC SULFATE PO SCH (10:00)
[2018-08-02] MEDS: SODIUM CHLORIDE FLUSH SYRINGE 10 ML IV SCH (10:00)
[2018-08-02] MEDS: VANCOMYCIN 1,250 MG in NACL 0.9% 250ML 250 ML IV SCH (10:00)
--- NOTE | 2018-08-02 10:50 | Progress Note ---
Assessment and Plan 67 male with chronic anemia and chronic hypotension 1. Off pressors and should be stable for transfer to floor. 2. Now with CRE, ID following and will need to change Abx. Long discussion on Rounds about the importance of gowning and to not spread this through the hospital and especially the ICU 3. Feed patient, tolerating 4. Will likely sign off once out of unit. Subjective Date of service: 08/02/18 Principal diagnosis: Chest Pain Interval history: Off pressors now. Cr is better. Breathing stable Objective - Constitutional Vitals: Vital Signs - 12hr 08/01/18 08/01/18 08/01/18 22:51 23:00 23:11 Temperature Pulse Rate 78 76 79 Respiratory 33 H 36 H 34 H Rate Blood Pressure 114/63 116/64 116/64 O2 Sat by Pulse 97 97 96 Oximetry 08/01/18 08/01/18 08/01/18 23:21 23:31 23:41 Temperature Pulse Rate 78 89 83 Respiratory 36 H 40 H 37 H Rate Blood Pressure 113/67 126/72 126/72 O2 Sat by Pulse 95 96 95 Oximetry 08/01/18 08/01/18 08/02/18 23:42 23:51 00:00 Temperature 98.9 F Pulse Rate 82 82 Respiratory 34 H 34 H Rate Blood Pressure 126/72 123/59 O2 Sat by Pulse 95 96 Oximetry 08/02/18 08/02/18 08/02/18 00:11 00:21 00:30 Temperature Pulse Rate 83 83 82 Respiratory 36 H 31 H 31 H Rate Blood Pressure 123/59 123/66 121/66 O2 Sat by Pulse 96 97 97 Oximetry 08/02/18 08/02/18 08/02/18 00:40 00:51 01:00 Temperature Pulse Rate 82 80 85 Respiratory 30 H 33 H 27 H Rate Blood Pressure 123/66 119/63 126/66 O2 Sat by Pulse 97 97 97 Oximetry 08/02/18 08/02/18 08/02/18 01:11 01:21 01:30 Temperature Pulse Rate 81 83 82 Respiratory 31 H 30 H 31 H Rate Blood Pressure 126/66 123/60 119/63 O2 Sat by Pulse 97 97 97 Oximetry 08/02/18 08/02/18 08/02/18 01:41 01:51 02:00 Temperature Pulse Rate 82 80 81 Respiratory 31 H 27 H 32 H Rate Blood Pressure 119/63 123/64 123/64 O2 Sat by Pulse 97 98 97 Oximetry 08/02/18 08/02/18 08/02/18 02:11 02:21 02:30 Temperature Pulse Rate 81 81 80 Respiratory 30 H 30 H 28 H Rate Blood Pressure 114/62 120/61 118/61 O2 Sat by Pulse 97 97 97 Oximetry 08/02/18 08/02/18 08/02/18 02:41 02:50 03:00 Temperature Pulse Rate 86 86 86 Respiratory 33 H 32 H 30 H Rate Blood Pressure 118/61 116/68 110/61 O2 Sat by Pulse 97 97 97 Oximetry 08/02/18 08/02/18 08/02/18 03:11 03:19 03:21 Temperature 100.5 F H Pulse Rate 84 102 H Respiratory 35 H 17 Rate Blood Pressure 110/61 126/73 O2 Sat by Pulse 97 97 Oximetry 08/02/18 08/02/18 08/02/18 03:30 03:41 03:51 Temperature Pulse Rate 93 H 101 H 93 H Respiratory 44 H 44 H 46 H Rate Blood Pressure 117/73 117/73 109/43 O2 Sat by Pulse 97 91 96 Oximetry 08/02/18 08/02/18 08/02/18 04:00 04:11 04:21 Temperature Pulse Rate 94 H 88 84 Respiratory 39 H 36 H 35 H Rate Blood Pressure 123/46 123/46 111/65 O2 Sat by Pulse 97 97 96 Oximetry 08/02/18 08/02/18 08/02/18 04:30 04:41 04:51 Temperature Pulse Rate 85 83 Respiratory 30 H 36 H 31 H Rate Blood Pressure 122/70 122/70 117/69 O2 Sat by Pulse 96 96 96 Oximetry 08/02/18 08/02/18 08/02/18 05:00 05:11 05:21 Temperature Pulse Rate 87 77 78 Respiratory 30 H 29 H 27 H Rate Blood Pressure 123/73 123/73 121/69 O2 Sat by Pulse 96 96 96 Oximetry 08/02/18 08/02/18 08/02/18 05:30 05:41 05:51 Temperature Pulse Rate 79 79 80 Respiratory 29 H 29 H 21 Rate Blood Pressure 124/69 124/69 125/68 O2 Sat by Pulse 96 96 96 Oximetry 08/02/18 08/02/18 08/02/18 06:00 06:11 06:21 Temperature Pulse Rate 80 82 86 Respiratory 28 H 29 H 28 H Rate Blood Pressure 123/68 123/68 119/72 O2 Sat by Pulse 97 96 96 Oximetry 08/02/18 08/02/18 08/02/18 06:30 06:41 06:51 Temperature Pulse Rate 82 81 81 Respiratory 29 H 29 H 27 H Rate Blood Pressure 120/68 120/68 121/69 O2 Sat by Pulse 96 96 96 Oximetry 08/02/18 08/02/18 08/02/18 07:00 08:00 08:24 Temperature 98.2 F Pulse Rate 80 Respiratory 33 H Rate Blood Pressure 121/69 O2 Sat by Pulse 96 96 Oximetry General appearance: Present: no acute distress - EENT Eyes: PERRL, EOM intact ENT: hearing intact - Neck Neck: supple, normal ROM - Respiratory Respiratory effort: normal Respiratory: negative: CTA - Cardiovascular Rhythm: regular Heart Sounds: Present: S1 & S2 Extremity abnormal: other (contracted) - Gastrointestinal General gastrointestinal: Present: soft - Labs CBC & Chem 7: 08/01/18 05:45 08/02/18 04:31 Labs: Abnormal lab results 08/01/18 08/01/18 08/02/18 Range/Units 05:45 12:07 04:28 Chloride (98-107) mmol/L Carbon Dioxide (22-30) mmol/L BUN (9-20) mg/dL Glucose (75-100) mg/dL POC Glucose 120 H 124 H (70-105) Troponin T 0.162 H* (0.00-0.029) ng/mL LDL Cholesterol Direct 12 L (50-130) mg/dL HDL Cholesterol 17 L (40-59) mg/dL 08/02/18 Range/Units 04:31 Chloride 109.6 H (98-107) mmol/L Carbon Dioxide 17 L (22-30) mmol/L BUN 52 H (9-20) mg/dL Glucose 110 H (75-100) mg/dL POC Glucose (70-105) Troponin T (0.00-0.029) ng/mL LDL Cholesterol Direct (50-130) mg/dL HDL Cholesterol (40-59) mg/dL Medications & Allergies - Medications Allergies/Adverse Reactions: Allergies tramadol Allergy (Verified 07/29/18 18:39) Unknown Home Medications: Home Medications Medication Instructions Recorded Confirmed Last Taken Type amLODIPine [Norvasc] 10 mg NGTUBE DAILY 06/02/16 07/30/18 Unknown History Multivit-Min/Iron Fum/Folic AC 1 each PO DAILY 03/24/18 07/30/18 Unknown History [Kpozt-Kvdmujh-Bszbqrba Tablet] Carvedilol [Coreg] 6.25 mg PO Q12H 06/13/18 07/30/18 Unknown History Acetaminophen 650 mg NGTUBE Q6H PRN 07/30/18 07/30/18 Unknown History Apixaban [Eliquis] 2.5 mg PO Q12H 07/30/18 07/30/18 Unknown History AtorvaSTATin [Lipitor] 40 mg NGTUBE QHS 07/30/18 07/30/18 Unknown History Dutasteride 0.5 mg NGTUBE QAM 07/30/18 07/30/18 Unknown History Furosemide [Lasix TAB] 40 mg PO QDAY 07/30/18 07/30/18 Unknown History Ipratropium/Albuterol Sulfate 1 ampul IH BID 07/30/18 07/30/18 Unknown History [DUONEB *Not for PRN Use*] Lisinopril [Zestril TAB] 40 mg PO QDAY 07/30/18 07/30/18 Unknown History Oxycodone HCl/Acetaminophen 1 each PO Q8HR PRN 07/30/18 07/30/18 Unknown History [Percocet 7.5/325 mg] Tamsulosin [Flomax] 0.4 mg PO QDAY 07/30/18 07/30/18 Unknown History Vit C/Ascorbate Calcium,Sodium 500 mg NGTUBE BID 07/30/18 07/30/18 Unknown History [Vitamin C 500 mg/15 ml Liquid] Zinc Sulfate 220 mg NGTUBE QDAY 07/30/18 07/30/18 Unknown History diphenhydrAMINE [Benadryl CAP] 25 mg NGTUBE Q6H PRN 07/30/18 07/30/18 Unknown History levETIRAcetam [Keppra INJ] 500 mg PO Q12H 07/30/18 07/30/18 Unknown History Active Medications: Generic Name Dose Route Start Last Admin Trade Name Freq PRN Reason Stop Dose Admin Acetaminophen 650 mg 07/30/18 02:50 07/31/18 16:36 Tylenol PO 650 mg Q4H PRN Administration Pain MILD(1-3)/Fever >100.5/PRICE Lipase/Protease/Amylase 1 each 07/30/18 13:59 Pancreazadela Moore 10,500 Unit FEEDTUBE PRN PRN For Clogged Feeding Tube Ascorbic Acid 500 mg 07/30/18 10:00 08/02/18 10:00 Vitamin C PO 500 mg BID NORA Administration Dextrose 50 ml 07/30/18 02:56 D50w (25gm) Syringe IV PRN PRN Hypoglycemia Norepinephrine 8 mg/ Sodium 250 mls @ 3.75 mls/hr 07/29/18 23:00 08/01/18 11:00 Chloride IV 0 mcg/min TITR NORA 0 mls/hr Titration Protocol 2 MCG/MIN Vancomycin HCl 1,250 mg/ 275 mls @ 166.667 mls/hr 07/31/18 12:00 08/02/18 10:00 Sodium Chloride IV 166.667 mls/hr Q24HR NORA Administration Meropenem 1,000 mg/ Sodium 100 mls @ 100 mls/hr 08/01/18 15:00 08/02/18 08:09 Chloride IV Infused Q8HR [facility] Infusion Protocol Insulin Human Regular 0 units 07/31/18 12:00 08/02/18 06:14 Humulin R SUB-Q Not Given Q6HR [facility] Protocol Levetiracetam 500 mg 07/30/18 06:00 08/02/18 06:14 Keppra PO 500 mg Q12H NORA Administration Ondansetron HCl 4 mg 07/30/18 02:50 Zofran IV Q8H PRN Nausea And Vomiting Simple Syrup 15 ml 07/30/18 13:59 Simple Syrup FEEDTUBE PRN PRN Hypoglycemia Simple Syrup 30 ml 07/30/18 13:59 Simple Syrup FEEDTUBE PRN PRN Hypoglycemia Sodium Bicarbonate 325 mg 07/30/18 13:59 Sodium Bicarbonate FEEDTUBE PRN PRN For Clogged Feeding Tube Sodium Chloride 10 ml 07/30/18 10:00 08/02/18 10:00 Sodium Chloride Flush Syringe 10 Ml IV 10 ml BID NORA Administration Sodium Chloride 10 ml 07/30/18 02:50 Sodium Chloride Flush Syringe 10 Ml IV PRN PRN LINE FLUSH Zinc Sulfate 220 mg 07/30/18 10:00 08/01/18 10:00 Zinc Sulfate PO 220 mg QDAY NORA Administration
--- NOTE | 2018-08-02 10:58 | Progress Note ---
Assessment and Plan Cultures: 07/29/2018 blood culture: E.coli, highly MDR, Proteus, beta hemolytic group G Streptococcus, Enterococcus Urine culture: mixed madeline 07/31/2018 blood culture: negative at 24 hours A/P: 67-year-old male who is a care home resident who has been hospitalized multiple times to this hospital in the recent past. He has a history of stroke, dementia, CHF, COPD, diabetes, multiple chronic decubitus ulcers, indwelling Chaudhary catheter and multiple recurrent urinary tract infections, previous pr ostate abscess, hypertension was brought to the hospital this time with fevers and hypotension: 1) Septic shock secondary to bacteremia: Patient with gram-positive and gram- negative bacteremia. Source is probably multiple infected decubitus ulcers and less likely UTI. 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 2) UTI: Chaudhary was apparently exchanged in ED. Continue abx. 3) Extensive and multiple decubitus ulcers: Multiple hospitalizations in the recent past. Of note, during his last hospitalization in May 2018, patient was discharged with hospice. Unclear why he was rehospitalized, would strongly encourage hospice again. Continue wound care. Prognosis is extremely poor. 4) Chronic Alk phos elevation, transaminases also elevated this time probably from shock liver. 5) ?septic arthritis of left hip from decubitus ulcer: poor prognosis. Recs: discussed with pharmacy, add 1 dose of IV Gentamicin tomorrow, start IV Tigecycline 100 mg loading followed by 50 mg q12 hrs continue meropenem continue Vancomycin with monitoring, d/c vancomycin once Tigecycline is started Of note, during his last hospitalization in May 2018, patient was discharged with hospice. Would strongly encourage hospice again. He has developed extremely drug resistant bacteria and overall outcome is extremely poor, continues to have fecal contamination of his wounds Marcos Dillon MD [facility] C: [phone] O: [phone] F: [phone] Subjective Date of service: 08/02/18 Principal diagnosis: Chest Pain Interval history: Remains in ICU. Off pressors. Unable to provide history. While I was in the room, had a loose BM, incontinent that soiled his decubiti. Cultures growing highly MDR stuff. Objective - Exam Narrative Exam: Physical Exam: Constitutional: awake, alert, garbled speech Head, Ears, Nose: Normocephalic, atraumatic. External ears, nose normal Eyes: Conjunctivae/corneas clear. No icterus. No ptosis. Neck: Supple, no meningeal signs Oral: no thrush Cardiovascular: S1, S2 normal. Respiratory: Good air entry, clear to auscultation bilaterally GI: Soft, non-tender; bowel sounds normal. No peritoneal signs. PEG + Musculoskeletal: Multiple contractures, multiple decubitus ulcers present Skin: No rash or abscess Hem/Lymphatic: No palpable cervical or supraclavicular nodes. No lymphangitis Psych: no agitation Neurological: Awake, alert, garbled speech - Constitutional Vitals: Vital Signs Temp Pulse Resp BP Pulse Ox 98.2 F 80 33 H 121/69 96 08/02/18 08:00 08/02/18 07:00 08/02/18 07:00 08/02/18 07:00 08/02/18 08:24 Temperature -Last 24 Hours Temperature 98.2 F Temperature 100.5 F Temperature 98.9 F Temperature 100.1 F - Labs CBC & Chem 7: 08/01/18 05:45 08/02/18 04:31 Labs: Abnormal lab results 08/01/18 08/01/18 08/02/18 Range/Units 05:45 12:07 04:28 Chloride (98-107) mmol/L Carbon Dioxide (22-30) mmol/L BUN (9-20) mg/dL Glucose (75-100) mg/dL POC Glucose 120 H 124 H (70-105) Troponin T 0.162 H* (0.00-0.029) ng/mL LDL Cholesterol Direct 12 L (50-130) mg/dL HDL Cholesterol 17 L (40-59) mg/dL 08/02/18 Range/Units 04:31 Chloride 109.6 H (98-107) mmol/L Carbon Dioxide 17 L (22-30) mmol/L BUN 52 H (9-20) mg/dL Glucose 110 H (75-100) mg/dL POC Glucose (70-105) Troponin T (0.00-0.029) ng/mL LDL Cholesterol Direct (50-130) mg/dL HDL Cholesterol (40-59) mg/dL
[2018-08-02] MEDS ORDERED: GENTAMICIN 300 MG in NACL 0.9% 100 ML IV SCH (12:00)
--- NOTE | 2018-08-02 15:35 | Progress Note ---
Assessment and Plan Assessment and plan: Septic shock, source could be decubitus ulcer Bacteremia - Patient is on IV vancomycin, meropenem, will be given a dose of gentamycin and will start with tigecycline tomorrow and vancomycin will be discontinued -Culture is positive for Gram-negative rods and Streptococcus -ID consult -Patient was off Levophed -patient was treated with IV fluids and has swollen extremities, believe patient has fluid overload, Will do CXR Septic arthritis - Could be due to decubitus ulcer - Continue IV antibiotics, orthopedics consulted Symptomatic anemia; patient was transfused with packed RBC and posttransfusion hemoglobin was 8.2, we'll continue to monitor Acute renal failure - Nephrology consulted, avoid nephrotoxins, IV fluids - Resolved Patient is bedbound, contracted extremities - Continue supportive care Multiple decubitus ulcer - Followed by Dr. Man as outpatient - We'll put wound consult chest pain, chronic elevated troponin - Cardiology consulted and recommended conservative cardiac management DVT prophylaxis - SCDs because of severe anemia Disposition - transfer to MICU. History Interval history: Patient was seen and evaluated this morning, patient's extremities were swollen and IV fluids were discontinued. Hospitalist Physical - Physical exam Narrative exam: Not in cardiopulmonary distress. The patient appeared well nourished and normally developed. Vital signs as documented. Head exam is unremarkable. No scleral icterus . Neck is without jugular venous distension, thyromegaly, or carotid bruits. Lungs are clear to auscultation. Cardiac exam reveals regular rate and Rhythm. First and second heart sounds normal. No murmurs, rubs or gallops. Abdominal exam reveals normal bowel sounds, no masses, no organomegaly and no aortic enlargement. Extremities contracted. Swollen. [employer]: Contracted Skin; multiple decubitus ulcer present on admission - Constitutional Vitals: Temp Pulse Resp BP Pulse Ox 98.2 F 78 24 124/69 97 08/02/18 08:00 08/02/18 14:00 08/02/18 14:00 08/02/18 14:00 08/02/18 14:00 General appearance: Present: no acute distress Results - Labs CBC & Chem 7: 08/01/18 05:45 08/02/18 04:31 Labs: Laboratory Last Values WBC 13.9 K/mm3 (4.5-11.0) H 08/01/18 05:45 RBC 3.70 M/mm3 (3.65-5.03) 08/01/18 05:45 Hgb 10.4 gm/dl (11.8-15.2) L 08/01/18 05:45 Hct 32.3 % (35.5-45.6) L 08/01/18 05:45 MCV 87 fl (84-94) 08/01/18 05:45 MCH 28 pg (28-32) 08/01/18 05:45 MCHC 32 % (32-34) 08/01/18 05:45 RDW 16.5 % (13.2-15.2) H 08/01/18 05:45 Plt Count 352 K/mm3 (140-440) 08/01/18 05:45 Lymph % (Auto) 5.7 % (13.4-35.0) L 08/01/18 05:45 [place] % (Auto) 10.5 % (0.0-7.3) H 08/01/18 05:45 Eos % (Auto) 1.5 % (0.0-4.3) 08/01/18 05:45 Baso % (Auto) 0.6 % (0.0-1.8) 08/01/18 05:45 Lymph # 0.8 K/mm3 (1.2-5.4) L 08/01/18 05:45 [place] # 1.5 K/mm3 (0.0-0.8) H 08/01/18 05:45 Eos # 0.2 K/mm3 (0.0-0.4) 08/01/18 05:45 Baso # 0.1 K/mm3 (0.0-0.1) 08/01/18 05:45 Seg Neutrophils % 81.7 % (40.0-70.0) H 08/01/18 05:45 Seg Neutrophils # 11.4 K/mm3 (1.8-7.7) H 08/01/18 05:45 Sodium 137 mmol/L (137-145) 08/02/18 04:31 Potassium 4.2 mmol/L (3.6-5.0) 08/02/18 04:31 Chloride 109.6 mmol/L (98-107) H 08/02/18 04:31 Carbon Dioxide 17 mmol/L (22-30) L 08/02/18 04:31 Anion Gap 15 mmol/L 08/02/18 04:31 BUN 52 mg/dL (9-20) H 08/02/18 04:31 Creatinine 0.9 mg/dL (0.8-1.5) 08/02/18 04:31 Estimated GFR > 60 ml/min 08/02/18 04:31 BUN/Creatinine Ratio 58 % 08/02/18 04:31 Glucose 110 mg/dL (75-100) H 08/02/18 04:31 POC Glucose 106 (70-105) H 08/02/18 12:10 Lactic Acid 1.60 mmol/L (0.7-2.0) 07/30/18 03:26 Calcium 9.0 mg/dL (8.4-10.2) 08/02/18 04:31 Phosphorus 4.10 mg/dL (2.5-4.5) 07/31/18 04:25 Magnesium 2.70 mg/dL (1.7-2.3) H 07/31/18 04:25 Total Bilirubin 0.40 mg/dL (0.1-1.2) 07/31/18 04:25 AST 57 units/L (5-40) H 07/31/18 04:25 ALT 76 units/L (7-56) H 07/31/18 04:25 Alkaline Phosphatase 379 units/L (35-129) H 07/31/18 04:25 Troponin T 0.162 ng/mL (0.00-0.029) H* 08/01/18 05:45 Total Protein 6.6 g/dL (6.3-8.2) 07/31/18 04:25 Albumin 1.8 g/dL (3.9-5) L 07/31/18 04:25 Albumin/Globulin Ratio 0.4 % 07/31/18 04:25 Triglycerides 130 mg/dL (2-149) 08/01/18 05:45 Cholesterol 83 mg/dL (50-199) 08/01/18 05:45 LDL Cholesterol Direct 12 mg/dL (50-130) L 08/01/18 05:45 HDL Cholesterol 17 mg/dL (40-59) L 08/01/18 05:45 Cholesterol/HDL Ratio 4.88 % 08/01/18 05:45 Urine Color [place] (Yellow) 07/29/18 21:33 Urine Turbidity Cloudy (Clear) 07/29/18 21:33 Urine pH 5.0 (5.0-7.0) 07/29/18 21:33 Ur Specific [place] 1.028 (1.003-1.030) 07/29/18 21:33 Urine Protein 100 mg/dl mg/dL (Negative) 07/29/18 21:33 Urine Glucose (UA) Neg mg/dL (Negative) 07/29/18 21:33 Urine Ketones Neg mg/dL (Negative) 07/29/18 21:33 Urine Blood Mod (Negative) 07/29/18 21:33 Urine Nitrite Neg (Negative) 07/29/18 21:33 Urine Bilirubin Neg (Negative) 07/29/18 21:33 Urine Urobilinogen 2.0 mg/dL (<2.0) 07/29/18 21:33 Ur Leukocyte Esterase Lg (Negative) 07/29/18 21:33 Urine WBC (Auto) > 182.0 /HPF (0.0-6.0) H 07/29/18 21:33 Urine RBC (Auto) > 182.0 /HPF (0.0-6.0) 07/29/18 21:33 Urine Bacteria (Auto) 4+ /HPF (Negative) 07/29/18 21:33 Urine WBC Clumps 3+ /HPF 07/29/18 21:33 Urine Mucus Few /HPF 07/29/18 21:33 Urine Eosinophils None seen (None Seen) 07/31/18 Unknown Urine Creatinine 27.3 mg/dL (0.1-20.0) H 07/31/18 Unknown Urine Sodium 99 mmol/L 07/31/18 Unknown Blood Type O POSITIVE 07/30/18 03:26 Antibody Screen Negative 07/30/18 03:26 Crossmatch See Detail 07/30/18 03:26 Nutrition/Malnutrition Assess - Dietary Evaluation Nutrition/Malnutrition Findings: Nutrition Notes Start: 07/30/18 09:58 Freq: Status: Active Protocol: Document 08/01/18 13:22 OL (Rec: 08/01/18 13:25 OL [id number]) Nutrition Notes Initial or Follow up Reassessment Current Diagnosis Coronary Artery Disease, Decubitus(Pressure Ulcer), Diabetes,Hypertension,Heart Failure Other Pertinent Diagnosis Septic shock, UTI, Seizure D/O , anemia Current Diet Promote at 75mL/hr with 50mL flush q4h or per ND Labs/Tests BUN 60 glucose 123 Pertinent Medications zinc sulfate, vitamin c Height 5 ft 10 in Weight 58.468 kg [place] Body Weight (kg) 75.45 BMI 18.5 Subjective/Other Information Promote infusing at 75mL/hr. Mario added for wound healing. Provides additional 19mg zinc Burn Absent Trauma Absent #1 Nutrition Diagnosis Malnutrition Diagnosis Progress(for reassessment Continues documentation) Is patient on ventilator? No Is Patient Ambulatory and/or Out of Bed No REE-([facility]-confined to bed) 1638.948 Kcal/Kg value to use for calculation 35 Approximate Energy Requirements Using 2046 kcal/Kg Additional Notes protein (1.5-2g/kg): 88-117g fluid: 1mL/kcal or per MD Nutrition Intervention Nutrition Support: Promote at 75mL/hr with 50mL flush q4h or per MD Kcal 1,800 Protein (gm) 113 Carbohydrates (gm) 234 Fluid (mL) 1,510 Fiber (gm) 0 Goal #1 TF tolerance Goal #2 TF to meet 100% energy and pro needs Goal #3 Wt maintenance and/or gain Follow-Up By: 08/07/18 Additional Comments f/u: stable TF
--- NOTE | 2018-08-02 20:32 | XRay Report ---
PROCEDURE: XR CHEST 1V AP TECHNIQUE: AP portable view of the chest HISTORY: fluid overload, swollen extremities COMPARISONS: CXR 08/01/2018 FINDINGS: Lines, tubes, and devices: N/A Lungs and pleura: Trachea is normal in position. Lungs are clear of infiltrate, pleural effusion, vas cular congestion, or pneumothorax. No change. Cardiomediastinal silhouette: Heart is enlarged but stable. Other: Bony structures are intact. IMPRESSION: No acute cardiopulmonary process seen.No change. This document is electronically signed by Chelsea Lee MD., August 02 2018 08:30:17 PM ET
[2018-08-03] MEDS: MERREM 1,000 MG in NACL 0.9% 100 ML IV SCH ×4 (00:52→22:00)
[2018-08-03] MEDS: HumuLIN R SUB-Q SCH ×4 (00:53→19:58)
[2018-08-03] MEDS: SODIUM CHLORIDE FLUSH SYRINGE 10 ML IV SCH ×3 (00:53→22:00)
[2018-08-03] MEDS: VITAMIN C PO SCH ×3 (00:53→22:00)
[2018-08-03] MEDS: KEPPRA PO SCH ×2 (06:22→20:01)
[2018-08-03 07:11] LABS: Basophils % (Auto) 0.3 % (0.0-1.8); Eosinophils # (Auto) 0.3 K/mm3 (0.0-0.4); Eosinophils % (Auto) 2.4 % (0.0-4.3); Hematocrit 29.6 % (35.5-45.6); Hemoglobin 9.7 gm/dl (11.8-15.2); Mean Corpuscular HGB Conc 33 % (32-34); Mean Corpuscular Volume 86 fl (84-94); Monocytes # (Auto) 1.3 K/mm3 (0.0-0.8); Monocytes % (Auto) 9.5 % (0.0-7.3); Platelet Count 387 K/mm3 (140-440); Red Blood Count 3.45 M/mm3 (3.65-5.03); Red Cell Distribution Width 16.9 % (13.2-15.2)
[2018-08-03 07:32] LABS: BUN/Creatinine Ratio 64; Blood Urea Nitrogen 45 mg/dL (9-20); Calcium 9.6 mg/dL (8.4-10.2); Hemolysis Index 1
--- NOTE | 2018-08-03 09:25 | Progress Note ---
Assessment and Plan 1. Acute kidney injury: Vasomotor / hemodynamic MÓNICA in the setting of hypotension, sepsis and volume depletion. CT abdomen was negative for hydronephrosis. Renal function is better. Monitor renal function. Avoid nephrotoxic agents. Meds dosage based on GFR. 2. FEN: Hypernatremia, improved. Metabolic acidosis. Edema, improving. Monitor lytes. 3. Sepsis with shock: Off pressors. 4. Anemia: S/p PRBC. 5. Multiple decubitus ulcers. 6. Shock Liver. Subjective Date of service: 08/03/18 Principal diagnosis: Chest Pain Interval history: Patient was seen and examined at the bedside. Objective - Vital Signs Vital signs: Vital Signs - 12hr 08/02/18 08/02/18 08/02/18 22:00 23:00 23:59 Temperature 100.5 F H Pulse Rate 99 H 98 H Respiratory 28 H 33 H Rate Blood Pressure 118/74 117/73 O2 Sat by Pulse 96 96 Oximetry 08/03/18 08/03/18 08/03/18 00:00 01:00 02:00 Temperature Pulse Rate 99 H 102 H 89 Respiratory 32 H 38 H 28 H Rate Blood Pressure 115/73 129/76 126/71 O2 Sat by Pulse 95 94 94 Oximetry 08/03/18 08/03/18 08/03/18 03:00 04:00 05:01 Temperature 99.8 F H Pulse Rate 88 85 89 Respiratory 30 H 28 H 25 H Rate Blood Pressure 125/64 117/71 120/66 O2 Sat by Pulse 94 95 94 Oximetry - General Appearance General appearance: well-developed, appears stated age, other (not in distress) EENT: ATNC, PERRL Respiratory: Present: Clear to Ascultation Cardiology: regular, S1S2, no murmurs Gastrointestinal: normoactive bowel sounds, no tenderness, no distended Integumentary: ulcer, decubiti Neurologic: confused, disoriented, other (answers some questions) Musculoskeletal: other (contractures noted) - Lab 08/03/18 05:45 08/03/18 05:45 Most recent lab results Calcium 9.6 mg/dL (8.4-10.2) 08/03/18 05:45 Phosphorus 4.10 mg/dL (2.5-4.5) 07/31/18 04:25 Magnesium 2.70 mg/dL (1.7-2.3) H 07/31/18 04:25 Urine Creatinine 27.3 mg/dL (0.1-20.0) H 07/31/18 Unknown Urine Sodium 99 mmol/L 07/31/18 Unknown Medications & Allergies - Medications Allergies/Adverse Reactions: Allergies tramadol Allergy (Verified 07/29/18 18:39) Unknown Home Medications: Home Medications Medication Instructions Recorded Confirmed Last Taken Type amLODIPine [Norvasc] 10 mg NGTUBE DAILY 06/02/16 07/30/18 Unknown History Multivit-Min/Iron Fum/Folic AC 1 each PO DAILY 03/24/18 07/30/18 Unknown History [Crgsl-Kthbuft-Wpeulwug Tablet] Carvedilol [Coreg] 6.25 mg PO Q12H 06/13/18 07/30/18 Unknown History Acetaminophen 650 mg NGTUBE Q6H PRN 07/30/18 07/30/18 Unknown History Apixaban [Eliquis] 2.5 mg PO Q12H 07/30/18 07/30/18 Unknown History AtorvaSTATin [Lipitor] 40 mg NGTUBE QHS 07/30/18 07/30/18 Unknown History Dutasteride 0.5 mg NGTUBE QAM 07/30/18 07/30/18 Unknown History Furosemide [Lasix TAB] 40 mg PO QDAY 07/30/18 07/30/18 Unknown History Ipratropium/Albuterol Sulfate 1 ampul IH BID 07/30/18 07/30/18 Unknown History [DUONEB *Not for PRN Use*] Lisinopril [Zestril TAB] 40 mg PO QDAY 07/30/18 07/30/18 Unknown History Oxycodone HCl/Acetaminophen 1 each PO Q8HR PRN 07/30/18 07/30/18 Unknown History [Percocet 7.5/325 mg] Tamsulosin [Flomax] 0.4 mg PO QDAY 07/30/18 07/30/18 Unknown History Vit C/Ascorbate Calcium,Sodium 500 mg NGTUBE BID 07/30/18 07/30/18 Unknown History [Vitamin C 500 mg/15 ml Liquid] Zinc Sulfate 220 mg NGTUBE QDAY 07/30/18 07/30/18 Unknown History diphenhydrAMINE [Benadryl CAP] 25 mg NGTUBE Q6H PRN 07/30/18 07/30/18 Unknown History levETIRAcetam [Keppra INJ] 500 mg PO Q12H 07/30/18 07/30/18 Unknown History Active Medications: Generic Name Dose Route Start Last Admin Trade Name Freq PRN Reason Stop Dose Admin Acetaminophen 650 mg 07/30/18 02:50 07/31/18 16:36 Tylenol PO 650 mg Q4H PRN Administration Pain MILD(1-3)/Fever >100.5/PRICE Lipase/Protease/Amylase 1 each 07/30/18 13:59 Pancreaze 10,500 Unit FEEDTUBE PRN PRN For Clogged Feeding Tube Ascorbic Acid 500 mg 07/30/18 10:00 08/03/18 00:53 Vitamin C PO 500 mg BID NORA Administration Dextrose 50 ml 07/30/18 02:56 D50w (25gm) Syringe IV PRN PRN Hypoglycemia Vancomycin HCl 1,250 mg/ 275 mls @ 166.667 mls/hr 07/31/18 12:00 08/02/18 10:00 Sodium Chloride IV 166.667 mls/hr Q24HR NORA Administration Meropenem 1,000 mg/ Sodium 100 mls @ 100 mls/hr 08/01/18 15:00 08/03/18 06:29 Chloride IV 100 mls/hr Q8HR NORA Administration Protocol Tigecycline 100 mg/ Sodium 100 mls @ 100 mls/hr 08/03/18 10:00 Chloride IV 08/03/18 10:59 ONCE ONE Tigecycline 50 mg/ Sodium 100 mls @ 100 mls/hr 08/03/18 22:00 Chloride IV Q12HR NORA Insulin Human Regular 0 units 07/31/18 12:00 08/03/18 06:30 Humulin R SUB-Q Not Given Q6HR NORA Protocol Levetiracetam 500 mg 07/30/18 06:00 08/03/18 06:22 Keppra PO 500 mg Q12H NORA Administration Ondansetron HCl 4 mg 07/30/18 02:50 Zofran IV Q8H PRN Nausea And Vomiting Simple Syrup 15 ml 07/30/18 13:59 Simple Syrup FEEDTUBE PRN PRN Hypoglycemia Simple Syrup 30 ml 07/30/18 13:59 Simple Syrup FEEDTUBE PRN PRN Hypoglycemia Sodium Bicarbonate 325 mg 07/30/18 13:59 Sodium Bicarbonate FEEDTUBE PRN PRN For Clogged Feeding Tube Sodium Chloride 10 ml 07/30/18 10:00 08/03/18 00:53 Sodium Chloride Flush Syringe 10 Ml IV 10 ml BID NORA Administration Sodium Chloride 10 ml 07/30/18 02:50 Sodium Chloride Flush Syringe 10 Ml IV PRN PRN LINE FLUSH Zinc Sulfate 220 mg 07/30/18 10:00 08/02/18 10:00 Zinc Sulfate PO 220 mg QDAY NORA Administration
[2018-08-03] MEDS ORDERED: NACL 0.9% IV ONE (10:00)
[2018-08-03] MEDS ORDERED: TYGACIL IV ONE (10:00)
[2018-08-03] MEDS: ZINC SULFATE PO SCH (10:46)
--- NOTE | 2018-08-03 14:35 | Progress Note ---
Assessment and Plan 67 male with chronic anemia and chronic hypotension 1. Stable from a critical care standpoint and no acute pulmonary issues. Will sign off. Subjective Date of service: 08/03/18 Principal diagnosis: Chest Pain Interval history: Successful transfer out of unit. Stable hemodynamics Objective - Constitutional Vitals: Vital Signs - 12hr 08/03/18 08/03/18 08/03/18 03:00 04:00 05:00 Temperature 99.8 F H Pulse Rate 88 85 Pulse Rate [ 89 From Monitor] Respiratory 30 H 28 H 24 Rate Blood Pressure 125/64 117/71 O2 Sat by Pulse 94 95 94 Oximetry 08/03/18 08/03/18 08/03/18 05:01 06:00 07:00 Temperature Pulse Rate 89 86 85 Pulse Rate [ From Monitor] Respiratory 25 H 28 H 27 H Rate Blood Pressure 120/66 126/71 129/68 O2 Sat by Pulse 94 95 95 Oximetry 08/03/18 08/03/18 08:00 09:00 Temperature Pulse Rate 79 89 Pulse Rate [ From Monitor] Respiratory 21 27 H Rate Blood Pressure 122/67 128/69 O2 Sat by Pulse 95 96 Oximetry General appearance: Present: no acute distress - EENT Eyes: PERRL, EOM intact ENT: hearing intact - Neck Neck: supple - Respiratory Respiratory: bilateral: diminished Extremities: abnormal (contractures) - Labs CBC & Chem 7: 08/03/18 05:45 08/03/18 05:45 Labs: Abnormal lab results 08/01/18 08/02/18 08/02/18 Range/Units 18:11 16:25 23:34 WBC (4.5-11.0) K/mm3 RBC (3.65-5.03) M/mm3 Hgb (11.8-15.2) gm/dl Hct (35.5-45.6) % RDW (13.2-15.2) % Lymph % (Auto) (13.4-35.0) % [place]ha % (Auto) (0.0-7.3) % Lymph # (1.2-5.4) K/mm3 [place]ha # (0.0-0.8) K/mm3 Seg Neutrophils % (40.0-70.0) % Seg Neutrophils # (1.8-7.7) K/mm3 Chloride (98-107) mmol/L Carbon Dioxide (22-30) mmol/L BUN (9-20) mg/dL Creatinine (0.8-1.5) mg/dL Glucose (75-100) mg/dL POC Glucose 119 H 122 H 116 H (70-105) 08/03/18 08/03/18 08/03/18 Range/Units 05:05 05:45 05:45 WBC 14.0 H (4.5-11.0) K/mm3 RBC 3.45 L (3.65-5.03) M/mm3 Hgb 9.7 L (11.8-15.2) gm/dl Hct 29.6 L (35.5-45.6) % RDW 16.9 H (13.2-15.2) % Lymph % (Auto) 7.0 L (13.4-35.0) % Desha % (Auto) 9.5 H (0.0-7.3) % Lymph # 1.0 L (1.2-5.4) K/mm3 Desha # 1.3 H (0.0-0.8) K/mm3 Seg Neutrophils % 80.8 H (40.0-70.0) % Seg Neutrophils # 11.3 H (1.8-7.7) K/mm3 Chloride 110.7 H (98-107) mmol/L Carbon Dioxide 19 L (22-30) mmol/L BUN 45 H (9-20) mg/dL Creatinine 0.7 L (0.8-1.5) mg/dL Glucose 113 H (75-100) mg/dL POC Glucose 117 H (70-105) 08/03/18 08/03/18 Range/Units 09:03 12:44 WBC (4.5-11.0) K/mm3 RBC (3.65-5.03) M/mm3 Hgb (11.8-15.2) gm/dl Hct (35.5-45.6) % RDW (13.2-15.2) % Lymph % (Auto) (13.4-35.0) % [place]ha % (Auto) (0.0-7.3) % Lymph # (1.2-5.4) K/mm3 Desha # (0.0-0.8) K/mm3 Seg Neutrophils % (40.0-70.0) % Seg Neutrophils # (1.8-7.7) K/mm3 Chloride (98-107) mmol/L Carbon Dioxide (22-30) mmol/L BUN (9-20) mg/dL Creatinine (0.8-1.5) mg/dL Glucose (75-100) mg/dL POC Glucose 112 H 113 H (70-105) Medications & Allergies - Medications Allergies/Adverse Reactions: Allergies tramadol Allergy (Verified 07/29/18 18:39) Unknown Home Medications: Home Medications Medication Instructions Recorded Confirmed Last Taken Type amLODIPine [Norvasc] 10 mg NGTUBE DAILY 06/02/16 07/30/18 Unknown History Multivit-Min/Iron Fum/Folic AC 1 each PO DAILY 03/24/18 07/30/18 Unknown History [Nuquh-Rjudfiz-Vfvmnqru Tablet] Carvedilol [Coreg] 6.25 mg PO Q12H 06/13/18 07/30/18 Unknown History Acetaminophen 650 mg NGTUBE Q6H PRN 07/30/18 07/30/18 Unknown History Apixaban [Eliquis] 2.5 mg PO Q12H 07/30/18 07/30/18 Unknown History AtorvaSTATin [Lipitor] 40 mg NGTUBE QHS 07/30/18 07/30/18 Unknown History Dutasteride 0.5 mg NGTUBE QAM 07/30/18 07/30/18 Unknown History Furosemide [Lasix TAB] 40 mg PO QDAY 07/30/18 07/30/18 Unknown History Ipratropium/Albuterol Sulfate 1 ampul IH BID 07/30/18 07/30/18 Unknown History [DUONEB *Not for PRN Use*] Lisinopril [Zestril TAB] 40 mg PO QDAY 07/30/18 07/30/18 Unknown History Oxycodone HCl/Acetaminophen 1 each PO Q8HR PRN 07/30/18 07/30/18 Unknown History [Percocet 7.5/325 mg] Tamsulosin [Flomax] 0.4 mg PO QDAY 07/30/18 07/30/18 Unknown History Vit C/Ascorbate Calcium,Sodium 500 mg NGTUBE BID 07/30/18 07/30/18 Unknown History [Vitamin C 500 mg/15 ml Liquid] Zinc Sulfate 220 mg NGTUBE QDAY 07/30/18 07/30/18 Unknown History diphenhydrAMINE [Benadryl CAP] 25 mg NGTUBE Q6H PRN 07/30/18 07/30/18 Unknown History levETIRAcetam [Keppra INJ] 500 mg PO Q12H 07/30/18 07/30/18 Unknown History Active Medications: Generic Name Dose Route Start Last Admin Trade Name Freq PRN Reason Stop Dose Admin Acetaminophen 650 mg 07/30/18 02:50 07/31/18 16:36 Tylenol PO 650 mg Q4H PRN Administration Pain MILD(1-3)/Fever >100.5/PRICE Lipase/Protease/Amylase 1 each 07/30/18 13:[address] 10,500 Unit FEEDTUBE PRN PRN For Clogged Feeding Tube Ascorbic Acid 500 mg 07/30/18 10:00 08/03/18 10:48 Vitamin C PO 500 mg BID NORA Administration Dextrose 50 ml 07/30/18 02:56 D50w (25gm) Syringe IV PRN PRN Hypoglycemia Meropenem 1,000 mg/ Sodium 100 mls @ 100 mls/hr 08/01/18 15:00 08/03/18 06:29 Chloride IV 100 mls/hr Q8HR NORA Administration Protocol Tigecycline 50 mg/ Sodium 100 mls @ 100 mls/hr 08/03/18 22:00 Chloride IV Q12HR [facility] Insulin Human Regular 0 units 07/31/18 12:00 08/03/18 06:30 Humulin R SUB-Q Not Given Q6HR [facility] Protocol Levetiracetam 500 mg 07/30/18 06:00 08/03/18 06:22 Keppra PO 500 mg Q12H NORA Administration Ondansetron HCl 4 mg 07/30/18 02:50 Zofran IV Q8H PRN Nausea And Vomiting Simple Syrup 15 ml 07/30/18 13:59 Simple Syrup FEEDTUBE PRN PRN Hypoglycemia Simple Syrup 30 ml 07/30/18 13:59 Simple Syrup FEEDTUBE PRN PRN Hypoglycemia Sodium Bicarbonate 325 mg 07/30/18 13:59 Sodium Bicarbonate FEEDTUBE PRN PRN For Clogged Feeding Tube Sodium Chloride 10 ml 07/30/18 10:00 08/03/18 00:53 Sodium Chloride Flush Syringe 10 Ml IV 10 ml BID NORA Administration Sodium Chloride 10 ml 07/30/18 02:50 Sodium Chloride Flush Syringe 10 Ml IV PRN PRN LINE FLUSH Zinc Sulfate 220 mg 07/30/18 10:00 08/03/18 10:46 Zinc Sulfate PO 220 mg QDAY NORA Administration
--- NOTE | 2018-08-03 16:10 | Progress Note ---
Assessment and Plan Assessment and plan: Septic shock, source could be decubitus ulcer Bacteremia - Patient is currently on IV meropenem, and tigecycline based on the sensitivity -Culture is positive for Gram-negative rods and Streptococcus -ID consult appreciated -patient was treated with IV fluids and has swollen extremities, believe patient has fluid overload, getting better Septic arthritis - Could be due to decubitus ulcer - Continue IV antibiotics, orthopedics consulted Symptomatic anemia; patient was transfused with packed RBC and posttransfusion hemoglobin was 8.2, we'll continue to monitor Acute renal failure - Nephrology consulted, avoid nephrotoxins, IV fluids - Resolved Patient is bedbound, contracted extremities - Continue supportive care Multiple decubitus ulcer - Followed by Dr. Man as outpatient - We'll put wound consult chest pain, chronic elevated troponin - Cardiology consulted and recommended conservative cardiac management DVT prophylaxis - SCDs because of severe anemia Disposition -Continue MICU care. History Interval history: Patient was seen and evaluated this morning, patient was alert and oriented, extremity swelling is getting better. Hospitalist Physical - Physical exam Narrative exam: Not in cardiopulmonary distress. The patient appeared well nourished and normally developed. Vital signs as documented. Head exam is unremarkable. No scleral icterus . Neck is without jugular venous distension, thyromegaly, or carotid bruits. Lungs are clear to auscultation. Cardiac exam reveals regular rate and Rhythm. First and second heart sounds normal. No murmurs, rubs or gallops. Abdominal exam reveals normal bowel sounds, no masses, no organomegaly and no a ortic enlargement. Extremities contracted. Swollen. [employer]: Contracted Skin; multiple decubitus ulcer present on admission - Constitutional Vitals: Temp Pulse Resp BP Pulse Ox 99.8 F H 89 27 H 128/69 96 08/03/18 04:00 08/03/18 09:00 08/03/18 09:00 08/03/18 09:00 08/03/18 09:00 General appearance: Present: no acute distress Results - Labs CBC & Chem 7: 08/03/18 05:45 08/03/18 05:45 Labs: Laboratory Last Values WBC 14.0 K/mm3 (4.5-11.0) H 08/03/18 05:45 RBC 3.45 M/mm3 (3.65-5.03) L 08/03/18 05:45 Hgb 9.7 gm/dl (11.8-15.2) L 08/03/18 05:45 Hct 29.6 % (35.5-45.6) L 08/03/18 05:45 MCV 86 fl (84-94) 08/03/18 05:45 MCH 28 pg (28-32) 08/03/18 05:45 MCHC 33 % (32-34) 08/03/18 05:45 RDW 16.9 % (13.2-15.2) H 08/03/18 05:45 Plt Count 387 K/mm3 (140-440) 08/03/18 05:45 Lymph % (Auto) 7.0 % (13.4-35.0) L 08/03/18 05:45 [place] % (Auto) 9.5 % (0.0-7.3) H 08/03/18 05:45 Eos % (Auto) 2.4 % (0.0-4.3) 08/03/18 05:45 Baso % (Auto) 0.3 % (0.0-1.8) 08/03/18 05:45 Lymph # 1.0 K/mm3 (1.2-5.4) L 08/03/18 05:45 [place] # 1.3 K/mm3 (0.0-0.8) H 08/03/18 05:45 Eos # 0.3 K/mm3 (0.0-0.4) 08/03/18 05:45 Baso # 0.0 K/mm3 (0.0-0.1) 08/03/18 05:45 Seg Neutrophils % 80.8 % (40.0-70.0) H 08/03/18 05:45 Seg Neutrophils # 11.3 K/mm3 (1.8-7.7) H 08/03/18 05:45 Sodium 138 mmol/L (137-145) 08/03/18 05:45 Potassium 4.6 mmol/L (3.6-5.0) 08/03/18 05:45 Chloride 110.7 mmol/L (98-107) H 08/03/18 05:45 Carbon Dioxide 19 mmol/L (22-30) L 08/03/18 05:45 Anion Gap 13 mmol/L 08/03/18 05:45 BUN 45 mg/dL (9-20) H 08/03/18 05:45 Creatinine 0.7 mg/dL (0.8-1.5) L 08/03/18 05:45 Estimated GFR > 60 ml/min 08/03/18 05:45 BUN/Creatinine Ratio 64 % 08/03/18 05:45 Glucose 113 mg/dL (75-100) H 08/03/18 05:45 POC Glucose 113 (70-105) H 08/03/18 12:44 Lactic Acid 1.60 mmol/L (0.7-2.0) 07/30/18 03:26 Calcium 9.6 mg/dL (8.4-10.2) 08/03/18 05:45 Phosphorus 4.10 mg/dL (2.5-4.5) 07/31/18 04:25 Magnesium 2.70 mg/dL (1.7-2.3) H 07/31/18 04:25 Total Bilirubin 0.40 mg/dL (0.1-1.2) 07/31/18 04:25 AST 57 units/L (5-40) H 07/31/18 04:25 ALT 76 units/L (7-56) H 07/31/18 04:25 Alkaline Phosphatase 379 units/L (35-129) H 07/31/18 04:25 Troponin T 0.162 ng/mL (0.00-0.029) H* 08/01/18 05:45 Total Protein 6.6 g/dL (6.3-8.2) 07/31/18 04:25 Albumin 1.8 g/dL (3.9-5) L 07/31/18 04:25 Albumin/Globulin Ratio 0.4 % 07/31/18 04:25 Triglycerides 130 mg/dL (2-149) 08/01/18 05:45 Cholesterol 83 mg/dL (50-199) 08/01/18 05:45 LDL Cholesterol Direct 12 mg/dL (50-130) L 08/01/18 05:45 HDL Cholesterol 17 mg/dL (40-59) L 08/01/18 05:45 Cholesterol/HDL Ratio 4.88 % 08/01/18 05:45 Urine Color [place] (Yellow) 07/29/18 21:33 Urine Turbidity Cloudy (Clear) 07/29/18 21:33 Urine pH 5.0 (5.0-7.0) 07/29/18 21:33 Ur Specific [place] 1.028 (1.003-1.030) 07/29/18 21:33 Urine Protein 100 mg/dl mg/dL (Negative) 07/29/18 21:33 Urine Glucose (UA) Neg mg/dL (Negative) 07/29/18 21:33 Urine Ketones Neg mg/dL (Negative) 07/29/18 21:33 Urine Blood Mod (Negative) 07/29/18 21:33 Urine Nitrite Neg (Negative) 07/29/18 21:33 Urine Bilirubin Neg (Negative) 07/29/18 21:33 Urine Urobilinogen 2.0 mg/dL (<2.0) 07/29/18 21:33 Ur Leukocyte Esterase Lg (Negative) 07/29/18 21:33 Urine WBC (Auto) > 182.0 /HPF (0.0-6.0) H 07/29/18 21:33 Urine RBC (Auto) > 182.0 /HPF (0.0-6.0) 07/29/18 21:33 Urine Bacteria (Auto) 4+ /HPF (Negative) 07/29/18 21:33 Urine WBC Clumps 3+ /HPF 07/29/18 21:33 Urine Mucus Few /HPF 07/29/18 21:33 Urine Eosinophils None seen (None Seen) 07/31/18 Unknown Urine Creatinine 27.3 mg/dL (0.1-20.0) H 07/31/18 Unknown Urine Sodium 99 mmol/L 07/31/18 Unknown Blood Type O POSITIVE 07/30/18 03:26 Antibody Screen Negative 07/30/18 03:26 Crossmatch See Detail 07/30/18 03:26 Nutrition/Malnutrition Assess - Dietary Evaluation Nutrition/Malnutrition Findings: Nutrition Notes Start: 07/30/18 09:58 Freq: Status: Active Protocol: Document 08/01/18 13:22 OL (Rec: 08/01/18 13:25 OL [id number]) Nutrition Notes Initial or Follow up Reassessment Current Diagnosis Coronary Artery Disease, Decubitus(Pressure Ulcer), Diabetes,Hypertension,Heart Failure Other Pertinent Diagnosis Septic shock, UTI, Seizure D/O , anemia Current Diet Promote at 75mL/hr with 50mL flush q4h or per ND Labs/Tests BUN 60 glucose 123 Pertinent Medications zinc sulfate, vitamin c Height 5 ft 10 in Weight 58.468 kg [place] Body Weight (kg) 75.45 BMI 18.5 Subjective/Other Information Promote infusing at 75mL/hr. Mario added for wound healing. Provides additional 19mg zinc Burn Absent Trauma Absent #1 Nutrition Diagnosis Malnutrition Diagnosis Progress(for reassessment Continues documentation) Is patient on ventilator? No Is Patient Ambulatory and/or Out of Bed No REE-([facility]-confined to bed) 1638.948 Kcal/Kg value to use for calculation 35 Approximate Energy Requirements Using 2046 kcal/Kg Additional Notes protein (1.5-2g/kg): 88-117g fluid: 1mL/kcal or per MD Nutrition Intervention Nutrition Support: Promote at 75mL/hr with 50mL flush q4h or per MD Kcal 1,800 Protein (gm) 113 Carbohydrates (gm) 234 Fluid (mL) 1,510 Fiber (gm) 0 Goal #1 TF tolerance Goal #2 TF to meet 100% energy and pro needs Goal #3 Wt maintenance and/or gain Follow-Up By: 08/07/18 Additional Comments f/u: stable TF
[2018-08-03] MEDS: TYGACIL IV SCH (22:01)
[2018-08-03] MEDS: NACL 0.9% IV SCH (22:01)
[2018-08-04] MEDS: HumuLIN R SUB-Q SCH ×4 (01:46→21:02)
[2018-08-04 07:03] LABS: Basophils # (Auto) 0.1 K/mm3 (0.0-0.1); Basophils % (Auto) 0.5 % (0.0-1.8); Eosinophils # (Auto) 0.7 K/mm3 (0.0-0.4); Eosinophils % (Auto) 3.7 % (0.0-4.3); Hematocrit 32.4 % (35.5-45.6); Hemoglobin 10.5 gm/dl (11.8-15.2); Lymphocytes # (Auto) 1.9 K/mm3 (1.2-5.4); Lymphocytes % (Auto) 10.8 % (13.4-35.0); Mean Corpuscular HGB Conc 33 % (32-34); Mean Corpuscular Volume 86 fl (84-94); Monocytes # (Auto) 1.8 K/mm3 (0.0-0.8); Platelet Count 527 K/mm3 (140-440); Red Blood Count 3.77 M/mm3 (3.65-5.03); Red Cell Distribution Width 17.2 % (13.2-15.2)
[2018-08-04 07:24] LABS: BUN/Creatinine Ratio 82; Blood Urea Nitrogen 49 mg/dL (9-20); Calcium 10.1 mg/dL (8.4-10.2); Hemolysis Index 19
--- NOTE | 2018-08-04 09:47 | Progress Note ---
Assessment and Plan Assessment and plan: 1) Severe sepsis with shock -probably 2/2 multiple infected decubitus ulcers/UTI. -On IV antibiotics, off pressor -Initial blood cultures positive for multiple orgs including ESBL -blood cultures on 07/31 neg so far -ID following 2) UTI: Chaudhary was apparently exchanged in ED. Continue abx. Urine culture neg 3) Extensive and multiple decubitus ulcers: Continue wound care. Prognosis is very poor. 4) Transaminitis, probably from shock liver. We'll monitor levels 5) Acute kidney injury, probably vasomotor nephropathy -resolved -Avoid nephrotoxic agents. 6) Hypernatremia, probably secondary to dehydration -Resolved 7) Metabolic acidosis. -resolved 8) Acute on chronic anemia -S/p 3u PRBC -H/H stable, will monitor 9) Hyperkalemia -Kayexalate given, will monitor level 10) Severe protein calorie malnutrition -On tube feeding -Dietitian following 11) History of HTN -BP stable 12) Seizure disorder -Continue Keppra 13) H/O CAD -Low dose coreg and statin resumed -home eliquis on hold due to the anemia 14) H/O dementia -cont supportive care Disp: overall prognosis is very poor. D/c will depend on clinical course Time spent: 38 minutes History Interval history: Patient complained of hip pain Hospitalist Physical - Constitutional Vitals: Temp Pulse Resp BP Pulse Ox 99.8 F H 111 H 39 H 120/75 91 08/04/18 01:04 08/04/18 07:00 08/04/18 07:00 08/04/18 07:00 08/04/18 07:00 General appearance: Present: no acute distress, other (ill-looking) - EENT Eyes: Present: PERRL, EOM intact ENT: hearing intact, clear oral mucosa - Neck Neck: Present: supple - Respiratory Respiratory effort: normal Respiratory: bilateral: CTA - Cardiovascular Rhythm: regular (tachycardia) Heart Sounds: Present: S1 & S2 - Extremities Extremity abnormal: edema (bilateral upper extremities), other (dressing over right lower extremity noted) - Abdominal General gastrointestinal: soft, non-tender, non-distended, normal bowel sounds - Integumentary Integumentary: Present: erythema (multiple decubital ulcers) - Neurologic Neurologic: other (awake and responsive) Results - Labs CBC & Chem 7: 08/04/18 06:45 08/04/18 06:45 Labs: Laboratory Last Values WBC 17.6 K/mm3 (4.5-11.0) H 08/04/18 06:45 RBC 3.77 M/mm3 (3.65-5.03) 08/04/18 06:45 Hgb 10.5 gm/dl (11.8-15.2) L 08/04/18 06:45 Hct 32.4 % (35.5-45.6) L 08/04/18 06:45 MCV 86 fl (84-94) 08/04/18 06:45 MCH 28 pg (28-32) 08/04/18 06:45 MCHC 33 % (32-34) 08/04/18 06:45 RDW 17.2 % (13.2-15.2) H 08/04/18 06:45 Plt Count 527 K/mm3 (140-440) H 08/04/18 06:45 Lymph % (Auto) 10.8 % (13.4-35.0) L 08/04/18 06:45 [place] % (Auto) 10.0 % (0.0-7.3) H 08/04/18 06:45 Eos % (Auto) 3.7 % (0.0-4.3) 08/04/18 06:45 Baso % (Auto) 0.5 % (0.0-1.8) 08/04/18 06:45 Lymph # 1.9 K/mm3 (1.2-5.4) 08/04/18 06:45 [place] # 1.8 K/mm3 (0.0-0.8) H 08/04/18 06:45 Eos # 0.7 K/mm3 (0.0-0.4) H 08/04/18 06:45 Baso # 0.1 K/mm3 (0.0-0.1) 08/04/18 06:45 Seg Neutrophils % 75.0 % (40.0-70.0) H 08/04/18 06:45 Seg Neutrophils # 13.2 K/mm3 (1.8-7.7) H 08/04/18 06:45 Sodium 138 mmol/L (137-145) 08/04/18 06:45 Potassium 5.6 mmol/L (3.6-5.0) H D 08/04/18 06:45 Chloride 109.9 mmol/L (98-107) H 08/04/18 06:45 Carbon Dioxide 19 mmol/L (22-30) L 08/04/18 06:45 Anion Gap 15 mmol/L 08/04/18 06:45 BUN 49 mg/dL (9-20) H 08/04/18 06:45 Creatinine 0.6 mg/dL (0.8-1.5) L 08/04/18 06:45 Estimated GFR > 60 ml/min 08/04/18 06:45 BUN/Creatinine Ratio 82 % 08/04/18 06:45 Glucose 84 mg/dL (75-100) 08/04/18 06:45 POC Glucose 83 (70-105) 08/04/18 08:33 Lactic Acid 1.60 mmol/L (0.7-2.0) 07/30/18 03:26 Calcium 10.1 mg/dL (8.4-10.2) 08/04/18 06:45 Phosphorus 4.10 mg/dL (2.5-4.5) 07/31/18 04:25 Magnesium 2.70 mg/dL (1.7-2.3) H 07/31/18 04:25 Total Bilirubin 0.40 mg/dL (0.1-1.2) 07/31/18 04:25 AST 57 units/L (5-40) H 07/31/18 04:25 ALT 76 units/L (7-56) H 07/31/18 04:25 Alkaline Phosphatase 379 units/L (35-129) H 07/31/18 04:25 Troponin T 0.162 ng/mL (0.00-0.029) H* 08/01/18 05:45 Total Protein 6.6 g/dL (6.3-8.2) 07/31/18 04:25 Albumin 1.8 g/dL (3.9-5) L 07/31/18 04:25 Albumin/Globulin Ratio 0.4 % 07/31/18 04:25 Triglycerides 130 mg/dL (2-149) 08/01/18 05:45 Cholesterol 83 mg/dL (50-199) 08/01/18 05:45 LDL Cholesterol Direct 12 mg/dL (50-130) L 08/01/18 05:45 HDL Cholesterol 17 mg/dL (40-59) L 08/01/18 05:45 Cholesterol/HDL Ratio 4.88 % 08/01/18 05:45 Urine Color [place] (Yellow) 07/29/18 21:33 Urine Turbidity Cloudy (Clear) 07/29/18 21:33 Urine pH 5.0 (5.0-7.0) 07/29/18 21:33 Ur Specific [place] 1.028 (1.003-1.030) 07/29/18 21:33 Urine Protein 100 mg/dl mg/dL (Negative) 07/29/18 21:33 Urine Glucose (UA) Neg mg/dL (Negative) 07/29/18 21:33 Urine Ketones Neg mg/dL (Negative) 07/29/18 21:33 Urine Blood Mod (Negative) 07/29/18 21:33 Urine Nitrite Neg (Negative) 07/29/18 21:33 Urine Bilirubin Neg (Negative) 07/29/18 21:33 Urine Urobilinogen 2.0 mg/dL (<2.0) 07/29/18 21:33 Ur Leukocyte Esterase Lg (Negative) 07/29/18 21:33 Urine WBC (Auto) > 182.0 /HPF (0.0-6.0) H 07/29/18 21:33 Urine RBC (Auto) > 182.0 /HPF (0.0-6.0) 07/29/18 21:33 Urine Bacteria (Auto) 4+ /HPF (Negative) 07/29/18 21:33 Urine WBC Clumps 3+ /HPF 07/29/18 21:33 Urine Mucus Few /HPF 07/29/18 21:33 Urine Eosinophils None seen (None Seen) 07/31/18 Unknown Urine Creatinine 27.3 mg/dL (0.1-20.0) H 07/31/18 Unknown Urine Sodium 99 mmol/L 07/31/18 Unknown Blood Type O POSITIVE 07/30/18 03:26 Antibody Screen Negative 07/30/18 03:26 Crossmatch See Detail 07/30/18 03:26 Nutrition/Malnutrition Assess - Dietary Evaluation Nutrition/Malnutrition Findings: Nutrition Notes Start: 07/30/18 09:58 Freq: Status: Active Protocol: Document 08/01/18 13:22 OL (Rec: 08/01/18 13:25 OL [facility]-[email or web address]) Nutrition Notes Initial or Follow up Reassessment Current Diagnosis Coronary Artery Disease, Decubitus(Pressure Ulcer), Diabetes,Hypertension,Heart Failure Other Pertinent Diagnosis Septic shock, UTI, Seizure D/O , anemia Current Diet Promote at 75mL/hr with 50mL flush q4h or per ND Labs/Tests BUN 60 glucose 123 Pertinent Medications zinc sulfate, vitamin c Height 5 ft 10 in Weight 58.468 kg Krypton Body Weight (kg) 75.45 BMI 18.5 Subjective/Other Information Promote infusing at 75mL/hr. Mario added for wound healing. Provides additional 19mg zinc Burn Absent Trauma Absent #1 Nutrition Diagnosis Malnutrition Diagnosis Progress(for reassessment Continues documentation) Is patient on ventilator? No Is Patient Ambulatory and/or Out of Bed No REE-([facility]-confined to bed) 1638.948 Kcal/Kg value to use for calculation 35 Approximate Energy Requirements Using 2046 kcal/Kg Additional Notes protein (1.5-2g/kg): 88-117g fluid: 1mL/kcal or per MD Nutrition Intervention Nutrition Support: Promote at 75mL/hr with 50mL flush q4h or per MD Kcal 1,800 Protein (gm) 113 Carbohydrates (gm) 234 Fluid (mL) 1,510 Fiber (gm) 0 Goal #1 TF tolerance Goal #2 TF to meet 100% energy and pro needs Goal #3 Wt maintenance and/or gain Follow-Up By: 08/07/18 Additional Comments f/u: stable TF
[2018-08-04] MEDS ORDERED: KIONEX PO ONE (10:00)
[2018-08-04] MEDS ORDERED: NACL 0.9% 1000 ML 1,000 ML IV SCH (10:00)
[2018-08-04] MEDS: NACL 0.9% IV SCH ×2 (10:31→22:22)
[2018-08-04] MEDS: TYGACIL IV SCH ×2 (10:31→22:22)
[2018-08-04] MEDS: VITAMIN C PO SCH ×2 (10:32→22:58)
[2018-08-04] MEDS: KEPPRA PO SCH ×2 (10:32→21:06)
[2018-08-04] MEDS: ZINC SULFATE PO SCH (10:33)
[2018-08-04] MEDS: SODIUM CHLORIDE FLUSH SYRINGE 10 ML IV SCH ×2 (10:33→23:00)
[2018-08-04] MEDS: MERREM 1,000 MG in NACL 0.9% 100 ML IV SCH ×3 (10:40→22:56)
--- NOTE | 2018-08-04 10:53 | Progress Note ---
Assessment and Plan 1. Acute kidney injury: Vasomotor / hemodynamic MÓNICA in the setting of hypotension, sepsis and volume depletion. CT abdomen was negative for hydronephrosis. Renal function is better. Monitor renal function. Avoid nephrotoxic agents. Meds dosage based on GFR. 2. FEN: Hyperkalemia, Kayexalate ordered. Metabolic acidosis. Edema, improving. On tube feeding. Monitor lytes. 3. Sepsis with shock: Off pressors. 4. Anemia: S/p PRBC. 5. Multiple decubitus ulcers. 6. Shock Liver. Subjective Date of service: 08/04/18 Principal diagnosis: Chest Pain Interval history: Patient was seen and examined at the bedside. Objective - Vital Signs Vital signs: Vital Signs - 12hr 08/03/18 08/04/18 08/04/18 23:00 00:00 01:00 Temperature Pulse Rate 99 H 101 H 102 H Pulse Rate [ 102 H From Monitor] Respiratory 30 H 30 H 29 H Rate Blood Pressure 133/78 138/83 128/77 O2 Sat by Pulse 95 95 96 Oximetry 08/04/18 08/04/18 08/04/18 01:04 02:00 03:00 Temperature 99.8 F H Pulse Rate 102 H 105 H Pulse Rate [ From Monitor] Respiratory 31 H 32 H Rate Blood Pressure 131/78 126/80 O2 Sat by Pulse 94 94 Oximetry 08/04/18 08/04/18 08/04/18 04:00 05:00 06:00 Temperature Pulse Rate 100 H 104 H 106 H Pulse Rate [ 101 H From Monitor] Respiratory 32 H 30 H 32 H Rate Blood Pressure 125/79 128/79 136/84 O2 Sat by Pulse 95 94 93 Oximetry 08/04/18 07:00 Temperature Pulse Rate 111 H Pulse Rate [ From Monitor] Respiratory 39 H Rate Blood Pressure 120/75 O2 Sat by Pulse 91 Oximetry - General Appearance General appearance: well-developed, appears stated age, other (not in distress) EENT: ATNC, PERRL Respiratory: Present: Clear to Ascultation Cardiology: regular, S1S2, no murmurs Gastrointestinal: normoactive bowel sounds, no tenderness, no distended, other (PEG tube noted) Integumentary: ulcer, decubiti Neurologic: other (not following any command, alert) Musculoskeletal: other (trace UE and dependent edema noted, contractures noted) - Lab 08/04/18 06:45 08/04/18 06:45 Most recent lab results Calcium 10.1 mg/dL (8.4-10.2) 08/04/18 06:45 Phosphorus 4.10 mg/dL (2.5-4.5) 07/31/18 04:25 Magnesium 2.70 mg/dL (1.7-2.3) H 07/31/18 04:25 Urine Creatinine 27.3 mg/dL (0.1-20.0) H 07/31/18 Unknown Urine Sodium 99 mmol/L 07/31/18 Unknown Medications & Allergies - Medications Allergies/Adverse Reactions: Allergies tramadol Allergy (Verified 07/29/18 18:39) Unknown Home Medications: Home Medications Medication Instructions Recorded Confirmed Last Taken Type amLODIPine [Norvasc] 10 mg NGTUBE DAILY 06/02/16 07/30/18 Unknown History Multivit-Min/Iron Fum/Folic AC 1 each PO DAILY 03/24/18 07/30/18 Unknown History [Sirem-Zqtsxde-Atkhwama Tablet] Carvedilol [Coreg] 6.25 mg PO Q12H 06/13/18 07/30/18 Unknown History Acetaminophen 650 mg NGTUBE Q6H PRN 07/30/18 07/30/18 Unknown History Apixaban [Eliquis] 2.5 mg PO Q12H 07/30/18 07/30/18 Unknown History AtorvaSTATin [Lipitor] 40 mg NGTUBE QHS 07/30/18 07/30/18 Unknown History Dutasteride 0.5 mg NGTUBE QAM 07/30/18 07/30/18 Unknown History Furosemide [Lasix TAB] 40 mg PO QDAY 07/30/18 07/30/18 Unknown History Ipratropium/Albuterol Sulfate 1 ampul IH BID 07/30/18 07/30/18 Unknown History [DUONEB *Not for PRN Use*] Lisinopril [Zestril TAB] 40 mg PO QDAY 07/30/18 07/30/18 Unknown History Oxycodone HCl/Acetaminophen 1 each PO Q8HR PRN 07/30/18 07/30/18 Unknown History [Percocet 7.5/325 mg] Tamsulosin [Flomax] 0.4 mg PO QDAY 07/30/18 07/30/18 Unknown History Vit C/Ascorbate Calcium,Sodium 500 mg NGTUBE BID 07/30/18 07/30/18 Unknown History [Vitamin C 500 mg/15 ml Liquid] Zinc Sulfate 220 mg NGTUBE QDAY 07/30/18 07/30/18 Unknown History diphenhydrAMINE [Benadryl CAP] 25 mg NGTUBE Q6H PRN 07/30/18 07/30/18 Unknown History levETIRAcetam [Keppra INJ] 500 mg PO Q12H 07/30/18 07/30/18 Unknown History Active Medications: Generic Name Dose Route Start Last Admin Trade Name Freq PRN Reason Stop Dose Admin Acetaminophen 650 mg 07/30/18 02:50 07/31/18 16:36 Tylenol PO 650 mg Q4H PRN Administration Pain MILD(1-3)/Fever >100.5/PRICE Lipase/Protease/Amylase 1 each 07/30/18 13:59 Pancreaze 10,500 Unit FEEDTUBE PRN PRN For Clogged Feeding Tube Ascorbic Acid 500 mg 07/30/18 10:00 08/04/18 10:32 Vitamin C PO 500 mg BID NORA Administration Dextrose 50 ml 07/30/18 02:56 D50w (25gm) Syringe IV PRN PRN Hypoglycemia Meropenem 1,000 mg/ Sodium 100 mls @ 100 mls/hr 08/01/18 15:00 08/04/18 10:40 Chloride IV 100 mls/hr Q8HR NORA Administration Protocol Tigecycline 50 mg/ Sodium 100 mls @ 100 mls/hr 08/03/18 22:00 08/04/18 10:31 Chloride IV 100 mls/hr Q12HR NORA Administration Insulin Human Regular 0 units 07/31/18 12:00 08/04/18 01:46 Humulin R SUB-Q Not Given Q6HR NORA Protocol Levetiracetam 500 mg 07/30/18 06:00 08/04/18 10:32 Keppra PO 500 mg Q12H NORA Administration Ondansetron HCl 4 mg 07/30/18 02:50 Zofran IV Q8H PRN Nausea And Vomiting Simple Syrup 15 ml 07/30/18 13:59 Simple Syrup FEEDTUBE PRN PRN Hypoglycemia Simple Syrup 30 ml 07/30/18 13:59 Simple Syrup FEEDTUBE PRN PRN Hypoglycemia Sodium Bicarbonate 325 mg 07/30/18 13:59 Sodium Bicarbonate FEEDTUBE PRN PRN For Clogged Feeding Tube Sodium Chloride 10 ml 07/30/18 10:00 08/04/18 10:33 Sodium Chloride Flush Syringe 10 Ml IV 10 ml BID NORA Administration Sodium Chloride 10 ml 07/30/18 02:50 Sodium Chloride Flush Syringe 10 Ml IV PRN PRN LINE FLUSH Zinc Sulfate 220 mg 07/30/18 10:00 08/04/18 10:33 Zinc Sulfate PO 220 mg QDAY NORA Administration
[2018-08-04] MEDS ORDERED: D50W (25GM) Syringe IV ONE (11:52)
--- NOTE | 2018-08-04 15:41 | Progress Note ---
Assessment and Plan Cultures: 07/29/2018 blood culture: E.coli, highly MDR, Proteus, beta hemolytic group G Streptococcus, Enterococcus Urine culture: mixed madeline 07/31/2018 blood culture: negative at 24 hours A/P: 67-year-old male who is a half-way resident who has been hospitalized multiple times to this hospital in the recent past. He has a history of stroke, dementia, CHF, COPD, diabetes, multiple chronic decubitus ulcers, indwelling Chaudhary catheter and multiple recurrent urinary tract infections, previous prostate abscess, hypertension was brought to the hospital this time with fevers and hypotension: 1) Septic shock secondary to bacteremia: Patient with gram-positive and gram- negative bacteremia. Source is probably multiple infected decubitus ulcers and less likely UTI. 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 2) UTI: Chaudhary was apparently exchanged in ED. Continue abx. 3) Extensive and multiple decubitus ulcers: Multiple hospitalizations in the recent past. Of note, during his last hospitalization in May 2018, patient was discharged with hospice. Unclear why he was rehospitalized, would strongly encourage hospice again. Continue wound care. Prognosis is extremely poor. LEFT HEEL UNSTAGEBALE PRESSURE INJURY. WOUND MEASURES 5X6.5X2. ESCHAR NOTED AROUND EDGES. MODERATE AMOUNT OF SLOUGH NOTED. THERE IS SOME PINK GRANULATION TISSUE. NO ODOR. MODERATE AMOUNT OF SEROSANGUINEOUS DRAINAGE. LEFT LATERAL MALLEOLUS NOTED TO HAVE A SCABBED AREA. SCANT DRAINAGE. LEFT KNEE WOUND ALMOST HEALED. SCANT DRAINAGE. RIGHT LATERAL GREAT TOE ESCHAR. MINIMAL BLEEDING FROM EDGES. MEASURES 2X1X0.1. RIGHT MEDIAL LOWER LEG PRESSURE STAGE 2 INJURY MEASURES 6.5X2.5X0.1. SMALL AMOUNT OF SEROSANGUINEOUS DRAINAGE NOTED. LEFT MEDIAL THIGH WOUND MEASURES 1X1.5X0.3. SMALL AMOUNT OF YELLOW DRAINAGE. NO ODOR. RIGHT LATERAL ANKLE UNSTAGEABLE PRESSURE INJURY. MEASURES 5.5X1.5X0.3. WOUND IS NECROTIC. SMALL AMOUNT OF GRAYISH SUMMERS DRAINAGE. NO ODOR. RIGHT LATERAL MALLEOLUS STAGE 3 PRESSURE INJURY MEASURES 3X2.5X0.3. COVERED WITH YELLOW SLOUGH. MODERATE AMOUNT OF SEROSANGUINEOUS DRAINAGE NOTED. NO ODOR. RIGHT MEDIAL HEEL UNSTAGEABLE PRESSURE ULCER. MEASURES 3.4X2X4. THERE IS A SMALL AMOUNT OF RED GRANULATION TISSUE NOTED, BUT WOUND PROBES TO 4CM AND THERE IS NECROTIC TISSUE NOTED IN THE BASE OF THAT AREA. MODERATE AMOUNT OF SEROUS UNSTAGEABLE LEFT HIP PRESSURE INJURY. MEASURES 7.5X6X5. MILD ODOR. WOUND IS NECROTIC IN THE BASE. HOWEVER THERE IS SOME GRANULATION TISSUE NOTED. LARGE AMOUNT OF SEROSANGUINEOUS DRAINAGE. UNSTAGEABLE SACRAL PRESSURE INJURY. MEASURES 14X8X1. MODERATE AMOUNT OF SEROSANGUINEOUS DRAINAGE NOTED. NO ODOR. THERE IS A NECROTIC AREA AT 9 OCLOCK. LEFT FLANK UNSTAGEABLE PRESSURE INJURY MEASURES 4X3X0.3. COVERED WITH YELLOW SLOUGH. SMALL AMOUNT OF YELLOW DRAINAGE. 4) Chronic Alk phos elevation, transaminases also elevated this time probably from shock liver. 5) ?septic arthritis of left hip from decubitus ulcer: poor prognosis. Recs: continue Tigecycline 50 mg q12 hrs and meropenem remove femoral TLC multiple wound infection is incurable, further antibiotic therapy is futile. Please arrange family meeting for hospice. Dr Dillon will round tomorrow Penny Bernardo MD Infectious Diseases Players Assistant [facility] ([facility]) M [phone] O [phone] Subjective Date of service: 08/04/18 Principal diagnosis: Chest Pain Interval history: Remains alert, communicating but unclear speech, Tmax 100.5. ROS unable Objective - Exam Narrative Exam: General appearance: Alert in NAD, conversant Eyes: anicteric sclerae, moist conjunctivae; no lid-lag; PERRLA HENT: Atraumatic; oropharynx limited Neck: Trachea midline; supple, no thyromegaly or lymphadenopathy Lungs: CTA CV: RRR Abdomen: Soft, non-tender; PEG Extremities: contracted altaf Skin: per wound care eval--> LEFT HEEL UNSTAGEBALE PRESSURE INJURY. WOUND MEASURES 5X6.5X2. ESCHAR NOTED AROUND EDGES. MODERATE AMOUNT OF SLOUGH NOTED. THERE IS SOME PINK GRANULATION TISSUE. NO ODOR. MODERATE AMOUNT OF SEROSANGUINEOUS DRAINAGE. LEFT LATERAL MALLEOLUS NOTED TO HAVE A SCABBED AREA. SCANT DRAINAGE. LEFT KNEE WOUND ALMOST HEALED. SCANT DRAINAGE. RIGHT LATERAL GREAT TOE ESCHAR. MINIMAL BLEEDING FROM EDGES. MEASURES 2X1X0.1. RIGHT MEDIAL LOWER LEG PRESSURE STAGE 2 INJURY MEASURES 6.5X2.5X0.1. SMALL AMOUNT OF SEROSANGUINEOUS DRAINAGE NOTED. LEFT MEDIAL THIGH WOUND MEASURES 1X1.5X0.3. SMALL AMOUNT OF YELLOW DRAINAGE. NO ODOR. RIGHT LATERAL ANKLE UNSTAGEABLE PRESSURE INJURY. MEASURES 5.5X1.5X0.3. WOUND IS NECROTIC. SMALL AMOUNT OF GRAYISH SUMMERS DRAINAGE. NO ODOR. RIGHT LATERAL MALLEOLUS STAGE 3 PRESSURE INJURY MEASURES 3X2.5X0.3. COVERED WITH YELLOW SLOUGH. MODERATE AMOUNT OF SEROSANGUINEOUS DRAINAGE NOTED. NO ODOR. RIGHT MEDIAL HEEL UNSTAGEABLE PRESSURE ULCER. MEASURES 3.4X2X4. THERE IS A SMALL AMOUNT OF RED GRANULATION TISSUE NOTED, BUT WOUND PROBES TO 4CM AND THERE IS NECROTIC TISSUE NOTED IN THE BASE OF THAT AREA. MODERATE AMOUNT OF SEROUS UNSTAGEABLE LEFT HIP PRESSURE INJURY. MEASURES 7.5X6X5. MILD ODOR. WOUND IS NECROTIC IN THE BASE. HOWEVER THERE IS SOME GRANULATION TISSUE NOTED. LARGE AMOUNT OF SEROSANGUINEOUS DRAINAGE. UNSTAGEABLE SACRAL PRESSURE INJURY. MEASURES 14X8X1. MODERATE AMOUNT OF SEROSANGUINEOUS DRAINAGE NOTED. NO ODOR. THERE IS A NECROTIC AREA AT 9 OCLOCK. LEFT FLANK UNSTAGEABLE PRESSURE INJURY MEASURES 4X3X0.3. COVERED WITH YELLOW SLOUGH. SMALL AMOUNT OF YELLOW DRAINAGE. - Constitutional Vitals: Vital Signs Temp Pulse Resp BP Pulse Ox 99.8 F H 111 H 39 H 120/75 91 08/04/18 01:04 08/04/18 07:00 08/04/18 07:00 08/04/18 07:00 08/04/18 07:00 Temperature -Last 24 Hours Temperature 99.8 F Temperature 99.5 F - Labs CBC & Chem 7: 08/04/18 06:45 08/04/18 06:45 Labs: Abnormal lab results 08/04/18 08/04/18 Range/Units 06:45 06:45 WBC 17.6 H (4.5-11.0) K/mm3 Hgb 10.5 L (11.8-15.2) gm/dl Hct 32.4 L (35.5-45.6) % RDW 17.2 H (13.2-15.2) % Plt Count 527 H (140-440) K/mm3 Lymph % (Auto) 10.8 L (13.4-35.0) % [place] % (Auto) 10.0 H (0.0-7.3) % [place] # 1.8 H (0.0-0.8) K/mm3 Eos # 0.7 H (0.0-0.4) K/mm3 Seg Neutrophils % 75.0 H (40.0-70.0) % Seg Neutrophils # 13.2 H (1.8-7.7) K/mm3 Potassium 5.6 H D (3.6-5.0) mmol/L Chloride 109.9 H (98-107) mmol/L Carbon Dioxide 19 L (22-30) mmol/L BUN 49 H (9-20) mg/dL Creatinine 0.6 L (0.8-1.5) mg/dL
[2018-08-04] MEDS: COREG PO SCH (23:01)
[2018-08-05] MEDS: TYLENOL PO PRN ×2 (00:16→23:54)
[2018-08-05 04:34] LABS: Basophils # (Auto) 0.2 K/mm3 (0.0-0.1); Basophils % (Auto) 1.1 % (0.0-1.8); Eosinophils # (Auto) 0.3 K/mm3 (0.0-0.4); Eosinophils % (Auto) 2.3 % (0.0-4.3); Hematocrit 30.1 % (35.5-45.6); Hemoglobin 9.8 gm/dl (11.8-15.2); Lymphocytes # (Auto) 1.2 K/mm3 (1.2-5.4); Lymphocytes % (Auto) 8.6 % (13.4-35.0); Mean Corpuscular HGB Conc 33 % (32-34); Mean Corpuscular Volume 87 fl (84-94); Monocytes # (Auto) 1.5 K/mm3 (0.0-0.8); Monocytes % (Auto) 11.4 % (0.0-7.3); Platelet Count 474 K/mm3 (140-440); Red Blood Count 3.47 M/mm3 (3.65-5.03); Red Cell Distribution Width 17.4 % (13.2-15.2)
[2018-08-05 04:57] LABS: Alanine Aminotransferase 26 units/L (7-56); Albumin 1.5 g/dL (3.9-5); BUN/Creatinine Ratio 88; Blood Urea Nitrogen 53 mg/dL (9-20); Calcium 9.3 mg/dL (8.4-10.2); Hemolysis Index 16
[2018-08-05 05:07] LABS: Bilirubin,Direct < 0.2 mg/dL (0-0.2)
[2018-08-05] MEDS: MERREM 1,000 MG in NACL 0.9% 100 ML IV SCH ×3 (05:55→22:25)
[2018-08-05] MEDS: KEPPRA PO SCH ×2 (05:56→17:30)
[2018-08-05] MEDS: HumuLIN R SUB-Q SCH ×4 (05:56→18:56)
--- NOTE | 2018-08-05 08:12 | Progress Note ---
Assessment and Plan 1. Acute kidney injury: Vasomotor / hemodynamic MÓNICA in the setting of hypotension, sepsis and volume depletion. CT abdomen was negative for hydronephrosis. Renal function is better. Monitor renal function. Avoid nephrotoxic agents. Meds dosage based on GFR. 2. FEN: Hyperkalemia, Kayexalate ordered. Metabolic acidosis. Edema, improving. On tube feeding. Monitor lytes. 3. Sepsis with shock: Off pressors. 4. Anemia: S/p PRBC. 5. Multiple decubitus ulcers. 6. Shock Liver. Subjective Date of service: 08/05/18 Principal diagnosis: Chest Pain Interval history: Patient was seen and examined at the bedside. Objective - Vital Signs Vital signs: Vital Signs - 12hr 08/04/18 08/04/18 08/04/18 20:50 20:55 21:00 Temperature Pulse Rate 103 H 106 H Pulse Rate [ From Monitor] Respiratory 24 13 Rate Blood Pressure 122/73 122/73 O2 Sat by Pulse 99 100 98 Oximetry 08/04/18 08/04/18 08/04/18 22:00 23:00 23:01 Temperature Pulse Rate 97 H 110 H 110 H Pulse Rate [ From Monitor] Respiratory 32 H 16 Rate Blood Pressure 129/67 128/77 128/77 O2 Sat by Pulse 98 98 Oximetry 08/05/18 08/05/18 08/05/18 00:00 01:00 02:00 Temperature 99.1 F Pulse Rate 101 H 95 H 92 H Pulse Rate [ 78 From Monitor] Respiratory 21 21 18 Rate Blood Pressure 121/66 118/69 111/79 O2 Sat by Pulse 98 98 98 Oximetry 08/05/18 08/05/18 08/05/18 03:00 03:09 04:00 Temperature 99.8 F H Pulse Rate 92 H 90 Pulse Rate [ 90 From Monitor] Respiratory 15 28 H Rate Blood Pressure 121/70 118/70 O2 Sat by Pulse 99 Oximetry 08/05/18 08/05/18 05:00 06:00 Temperature Pulse Rate 90 94 H Pulse Rate [ From Monitor] Respiratory 24 28 H Rate Blood Pressure 121/66 123/72 O2 Sat by Pulse 98 Oximetry - General Appearance General appearance: well-developed, appears stated age, other (not in distress) EENT: ATNC Respiratory: Present: Clear to Ascultation Cardiology: regular, S1S2, no murmurs Gastrointestinal: normoactive bowel sounds, other (PEG tube noted) Integumentary: ulcer, decubiti Neurologic: other (not following any command) Musculoskeletal: other (LE edema, multiple contractures noted) - Lab 08/05/18 03:54 08/05/18 03:54 Most recent lab results Calcium 9.3 mg/dL (8.4-10.2) 08/05/18 03:54 Phosphorus 4.10 mg/dL (2.5-4.5) 07/31/18 04:25 Magnesium 2.70 mg/dL (1.7-2.3) H 07/31/18 04:25 Urine Creatinine 27.3 mg/dL (0.1-20.0) H 07/31/18 Unknown Urine Sodium 99 mmol/L 07/31/18 Unknown Medications & Allergies - Medications Allergies/Adverse Reactions: Allergies tramadol Allergy (Verified 07/29/18 18:39) Unknown Home Medications: Home Medications Medication Instructions Recorded Confirmed Last Taken Type amLODIPine [Norvasc] 10 mg NGTUBE DAILY 06/02/16 07/30/18 Unknown History Multivit-Min/Iron Fum/Folic AC 1 each PO DAILY 03/24/18 07/30/18 Unknown History [Sdxjg-Ffyoktx-Afqtcswd Tablet] Carvedilol [Coreg] 6.25 mg PO Q12H 06/13/18 07/30/18 Unknown History Acetaminophen 650 mg NGTUBE Q6H PRN 07/30/18 07/30/18 Unknown History Apixaban [Eliquis] 2.5 mg PO Q12H 07/30/18 07/30/18 Unknown History AtorvaSTATin [Lipitor] 40 mg NGTUBE QHS 07/30/18 07/30/18 Unknown History Dutasteride 0.5 mg NGTUBE QAM 07/30/18 07/30/18 Unknown History Furosemide [Lasix TAB] 40 mg PO QDAY 07/30/18 07/30/18 Unknown History Ipratropium/Albuterol Sulfate 1 ampul IH BID 07/30/18 07/30/18 Unknown History [DUONEB *Not for PRN Use*] Lisinopril [Zestril TAB] 40 mg PO QDAY 07/30/18 07/30/18 Unknown History Oxycodone HCl/Acetaminophen 1 each PO Q8HR PRN 07/30/18 07/30/18 Unknown History [Percocet 7.5/325 mg] Tamsulosin [Flomax] 0.4 mg PO QDAY 07/30/18 07/30/18 Unknown History Vit C/Ascorbate Calcium,Sodium 500 mg NGTUBE BID 07/30/18 07/30/18 Unknown History [Vitamin C 500 mg/15 ml Liquid] Zinc Sulfate 220 mg NGTUBE QDAY 07/30/18 07/30/18 Unknown History diphenhydrAMINE [Benadryl CAP] 25 mg NGTUBE Q6H PRN 07/30/18 07/30/18 Unknown History levETIRAcetam [Keppra INJ] 500 mg PO Q12H 07/30/18 07/30/18 Unknown History Active Medications: Generic Name Dose Route Start Last Admin Trade Name Freq PRN Reason Stop Dose Admin Acetaminophen 650 mg 07/30/18 02:50 08/05/18 00:16 Tylenol PO 650 mg Q4H PRN Administration Pain MILD(1-3)/Fever >100.5/PRICE Lipase/Protease/Amylase 1 each 07/30/18 13:59 Pancreaze 10,500 Unit FEEDTUBE PRN PRN For Clogged Feeding Tube Ascorbic Acid 500 mg 07/30/18 10:00 08/04/18 22:58 Vitamin C PO 500 mg BID NORA Administration Atorvastatin Calcium 40 mg 08/04/18 22:00 08/04/18 23:00 Lipitor PO 40 mg QHS NORA Administration Carvedilol 3.125 mg 08/04/18 22:00 08/04/18 23:01 Coreg PO 3.125 mg BID NORA Administration Dextrose 50 ml 07/30/18 02:56 D50w (25gm) Syringe IV PRN PRN Hypoglycemia Meropenem 1,000 mg/ Sodium 100 mls @ 100 mls/hr 08/01/18 15:00 08/05/18 05:55 Chloride IV 100 mls/hr Q8HR NORA Administration Protocol Tigecycline 50 mg/ Sodium 100 mls @ 100 mls/hr 08/03/18 22:00 08/04/18 22:22 Chloride IV 100 mls/hr Q12HR NORA Administration Insulin Human Regular 0 units 07/31/18 12:00 08/05/18 05:56 Humulin R SUB-Q Not Given Q6HR NORA Protocol Levetiracetam 500 mg 07/30/18 06:00 08/05/18 05:56 Keppra PO 500 mg Q12H NORA Administration Ondansetron HCl 4 mg 07/30/18 02:50 Zofran IV Q8H PRN Nausea And Vomiting Simple Syrup 15 ml 07/30/18 13:59 Simple Syrup FEEDTUBE PRN PRN Hypoglycemia Simple Syrup 30 ml 07/30/18 13:59 Simple Syrup FEEDTUBE PRN PRN Hypoglycemia Sodium Bicarbonate 325 mg 07/30/18 13:59 Sodium Bicarbonate FEEDTUBE PRN PRN For Clogged Feeding Tube Sodium Chloride 10 ml 07/30/18 10:00 08/04/18 23:00 Sodium Chloride Flush Syringe 10 Ml IV 10 ml BID NORA Administration Sodium Chloride 10 ml 07/30/18 02:50 Sodium Chloride Flush Syringe 10 Ml IV PRN PRN LINE FLUSH Zinc Sulfate 220 mg 07/30/18 10:00 08/04/18 10:33 Zinc Sulfate PO 220 mg QDAY NORA Administration
[2018-08-05] MEDS ORDERED: KIONEX PR NR (10:00)
--- NOTE | 2018-08-05 10:21 | Progress Note ---
Assessment and Plan Cultures: 07/29/2018 blood culture: E.coli, highly MDR, Proteus, beta hemolytic group G Streptococcus, Enterococcus Urine culture: mixed madeline 07/31/2018 blood culture: GNR, 1 out of 4 bottles A/P: 67-year-old male who is a shelter resident who has been hospitalized multiple times to this hospital in the recent past. He has a history of stroke, dementia, CHF, COPD, diabetes, multiple chronic decubitus ulcers, indwelling Chaudhary catheter and multiple recurrent urinary tract infections, previous prostate abscess, hypertension was brought to the hospital this time with fevers and hypotension: 1) Septic shock secondary to bacteremia: Improved. No fever in > 24 hours. Patient with gram-positive and gram-negative bacteremia. Source is probably multiple infected decubitus ulcers and less likely UTI. 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 2) UTI: Chaudhary was apparently exchanged in ED. Continue abx. 3) Extensive and multiple decubitus ulcers: Multiple hospitalizations in the recent past. Of note, during his last hospitalization in May 2018, patient was discharged with hospice. Unclear why he was rehospitalized, would strongly encourage hospice again. Continue wound care. Prognosis is extremely poor. LEFT HEEL UNSTAGEBALE PRESSURE INJURY. WOUND MEASURES 5X6.5X2. ESCHAR NOTED AROUND EDGES. MODERATE AMOUNT OF SLOUGH NOTED. THERE IS SOME PINK GRANULATION TISSUE. NO ODOR. MODERATE AMOUNT OF SEROSANGUINEOUS DRAINAGE. LEFT LATERAL MALLEOLUS NOTED TO HAVE A SCABBED AREA. SCANT DRAINAGE. LEFT KNEE WOUND ALMOST HEALED. SCANT DRAINAGE. RIGHT LATERAL GREAT TOE ESCHAR. MINIMAL BLEEDING FROM EDGES. MEASURES 2X1X0.1. RIGHT MEDIAL LOWER LEG PRESSURE STAGE 2 INJURY MEASURES 6.5X2.5X0.1. SMALL AMOUN T OF SEROSANGUINEOUS DRAINAGE NOTED. LEFT MEDIAL THIGH WOUND MEASURES 1X1.5X0.3. SMALL AMOUNT OF YELLOW DRAINAGE. NO ODOR. RIGHT LATERAL ANKLE UNSTAGEABLE PRESSURE INJURY. MEASURES 5.5X1.5X0.3. WOUND IS NECROTIC. SMALL AMOUNT OF GRAYISH SUMMERS DRAINAGE. NO ODOR. RIGHT LATERAL MALLEOLUS STAGE 3 PRESSURE INJURY MEASURES 3X2.5X0.3. COVERED WITH YELLOW SLOUGH. MODERATE AMOUNT OF SEROSANGUINEOUS DRAINAGE NOTED. NO ODOR. RIGHT MEDIAL HEEL UNSTAGEABLE PRESSURE ULCER. MEASURES 3.4X2X4. THERE IS A SMALL AMOUNT OF RED GRANULATION TISSUE NOTED, BUT WOUND PROBES TO 4CM AND THERE IS NECROTIC TISSUE NOTED IN THE BASE OF THAT AREA. MODERATE AMOUNT OF SEROUS UNSTAGEABLE LEFT HIP PRESSURE INJURY. MEASURES 7.5X6X5. MILD ODOR. WOUND IS NECROTIC IN THE BASE. HOWEVER THERE IS SOME GRANULATION TISSUE NOTED. LARGE AMOUNT OF SEROSANGUINEOUS DRAINAGE. UNSTAGEABLE SACRAL PRESSURE INJURY. MEASURES 14X8X1. MODERATE AMOUNT OF SEROSANGUINEOUS DRAINAGE NOTED. NO ODOR. THERE IS A NECROTIC AREA AT 9 OCLOCK. LEFT FLANK UNSTAGEABLE PRESSURE INJURY MEASURES 4X3X0.3. COVERED WITH YELLOW SLOUGH. SMALL AMOUNT OF YELLOW DRAINAGE. 4) Chronic Alk phos elevation, transaminases also elevated this time probably from shock liver. 5) ?septic arthritis of left hip from decubitus ulcer: poor prognosis. Recs: continue Tigecycline 50 mg q12 hrs and meropenem remove femoral TLC multiple wound infection is incurable, further antibiotic therapy is futile. Please arrange family meeting for hospice, poor prognosis f/u Blood cultures Jacquie Jean Baptiste NP [facility] M: [id number] O:[phone] Subjective Date of service: 08/05/18 Principal diagnosis: Chest Pain Interval history: Patient seen and examined. Complains of buttock pain, +moaning. Nurse at bedside. No fevers. Objective - Exam Narrative Exam: Constitutional: Alert, Awake. Complain of buttock pain. Acute distress Head, Ears, Nose: Normocephalic, atraumatic. External ears, nose normal Eyes: Conjunctivae/corneas clear. No icterus. No ptosis. Neck: Supple, no meningeal signs Oral: no thrush Cardiovascular: S1, S2 normal. Respiratory: Good air entry, clear to auscultation bilaterally GI: Soft, non-tender; bowel sounds normal. No peritoneal signs Musculoskeletal: No pedal edema, no cyanosis. Skin: Per wound Care: LEFT HEEL UNSTAGEBALE PRESSURE INJURY. LEFT LATERAL MALLEOLUS,LEFT KNEE WOUND ALMOST HEALED. SCANT DRAINAGE. RIGHT LATERAL GREAT TOE ESCHAR., RIGHT MEDIAL LOWER LEG PRESSURE STAGE 2 LEFT MEDIAL THIGH WOUND , RIGHT LATERAL ANKLE UNSTAGEABLE PRESSURE INJURY. RIGHT LATERAL MALLEOLUS STAGE 3 PRESSURE INJURY. RIGHT MEDIAL HEEL UNSTAGEABLE PRESSURE ULCER.. UNSTAGEABLE LEFT HIP PRESSURE INJURY. UNSTAGEABLE SACRAL PRESSURE INJURY. MEASURES 14X8X1. THERE IS A NECROTIC AREA AT 9 OCLOCK. LEFT FLANK UNSTAGEABLE PRESSURE INJURY MEASURES 4X3X0.3. Hem/Lymphatic: No palpable cervical or supraclavicular nodes. No lymphangitis Psych: Mood ok. Affect Flat Neurological: Awake, alert, Acute distress - Constitutional Vitals: Vital Signs Temp Pulse Resp BP Pulse Ox 99.2 F 93 H 38 H 116/66 97 08/05/18 08:00 08/05/18 09:00 08/05/18 09:00 08/05/18 09:00 08/05/18 09:00 Temperature -Last 24 Hours Temperature 99.2 F Temperature 99.8 F Temperature 99.1 F - Labs CBC & Chem 7: 08/05/18 03:54 08/05/18 03:54 Labs: Abnormal lab results 08/04/18 08/05/18 08/05/18 Range/Units 15:54 03:54 03:54 WBC 13.6 H (4.5-11.0) K/mm3 RBC 3.47 L (3.65-5.03) M/mm3 Hgb 9.8 L (11.8-15.2) gm/dl Hct 30.1 L (35.5-45.6) % RDW 17.4 H (13.2-15.2) % Plt Count 474 H (140-440) K/mm3 Lymph % (Auto) 8.6 L (13.4-35.0) % [place] % (Auto) 11.4 H (0.0-7.3) % [place] # 1.5 H (0.0-0.8) K/mm3 Baso # 0.2 H (0.0-0.1) K/mm3 Seg Neutrophils % 76.6 H (40.0-70.0) % Seg Neutrophils # 10.4 H (1.8-7.7) K/mm3 Potassium 5.3 H (3.6-5.0) mmol/L Chloride 112.6 H (98-107) mmol/L Carbon Dioxide 21 L (22-30) mmol/L BUN 53 H (9-20) mg/dL Creatinine 0.6 L (0.8-1.5) mg/dL Glucose 102 H (75-100) mg/dL POC Glucose 230 H (70-105) Alkaline Phosphatase 258 H (35-129) units/L Total Protein 6.1 L (6.3-8.2) g/dL Albumin 1.5 L (3.9-5) g/dL
[2018-08-05] MEDS ORDERED: TORADOL FEEDTUBE PRN (10:46)
[2018-08-05] MEDS: TYGACIL IV SCH ×2 (11:06→22:20)
[2018-08-05] MEDS: VITAMIN C PO SCH ×2 (11:06→22:35)
[2018-08-05] MEDS: ZINC SULFATE PO SCH (11:06)
[2018-08-05] MEDS: NACL 0.9% IV SCH ×2 (11:06→22:20)
--- NOTE | 2018-08-05 11:07 | Progress Note ---
Assessment and Plan Assessment and plan: 1) Severe sepsis with shock -probably 2/2 multiple infected decubitus ulcers/UTI. -On IV antibiotics, off pressor -Initial blood cultures positive for multiple orgs including ESBL -blood cultures on 07/31 positive for GNR, 1 out of 4 bottles -ID following 2) UTI: -Chaudhary catheter changed on admission -Continue abx. -Urine culture contaminated. 3) Multiple decubitus ulcers -Continue wound care. -Prognosis is very poor. 4) Transaminitis -probably from shock liver, improved 5) Acute kidney injury -probably vasomotor nephropathy -resolved -Avoid nephrotoxic agents. 6) Hypernatremia -probably secondary to dehydration -Resolved 7) Metabolic acidosis. -improving, will monitor 8) Acute on chronic anemia -S/p 3u PRBC -H/H stable, will monitor 9) Hyperkalemia -Kayexalate repeated today, will monitor 10) Severe protein calorie malnutrition -On tube feeding -Dietitian following 11) History of HTN -BP stable 12) Seizure disorder -Continue Keppra 13) H/O CAD -cont coreg and statin -home eliquis on hold due to the anemia 14) H/O dementia -cont supportive care Disp: overall prognosis is very poor. D/c will depend on clinical course History Interval history: Patient complaining of generalized body pain Hospitalist Physical - Constitutional Vitals: Temp Pulse Resp BP Pulse Ox 99.2 F 93 H 38 H 116/66 97 08/05/18 08:00 08/05/18 09:00 08/05/18 09:00 08/05/18 09:00 08/05/18 09:00 General appearance: Present: no acute distress, other (ill-looking) - EENT Eyes: Present: PERRL, EOM intact ENT: hearing intact, clear oral mucosa - Neck Neck: Present: supple - Respiratory Respiratory effort: normal Respiratory: bilateral: CTA - Cardiovascular Rhythm: regular (tachycardia) Heart Sounds: Present: S1 & S2 - Extremities Extremity abnormal: other (dressings over BLE noted) - Abdominal General gastrointestinal: soft, tender (generalized ), non-distended, normal bowel sounds, other (peg tube noted) - Integumentary Integumentary: Present: erythema (multiple decubitus ulcers) - Neurologic Neurologic: other (generalized weakness) Results - Labs CBC & Chem 7: 08/05/18 03:54 08/05/18 03:54 Labs: Laboratory Last Values WBC 13.6 K/mm3 (4.5-11.0) H 08/05/18 03:54 RBC 3.47 M/mm3 (3.65-5.03) L 08/05/18 03:54 Hgb 9.8 gm/dl (11.8-15.2) L 08/05/18 03:54 Hct 30.1 % (35.5-45.6) L 08/05/18 03:54 MCV 87 fl (84-94) 08/05/18 03:54 MCH 28 pg (28-32) 08/05/18 03:54 MCHC 33 % (32-34) 08/05/18 03:54 RDW 17.4 % (13.2-15.2) H 08/05/18 03:54 Plt Count 474 K/mm3 (140-440) H 08/05/18 03:54 Lymph % (Auto) 8.6 % (13.4-35.0) L 08/05/18 03:54 [place] % (Auto) 11.4 % (0.0-7.3) H 08/05/18 03:54 Eos % (Auto) 2.3 % (0.0-4.3) 08/05/18 03:54 Baso % (Auto) 1.1 % (0.0-1.8) 08/05/18 03:54 Lymph # 1.2 K/mm3 (1.2-5.4) 08/05/18 03:54 [place] # 1.5 K/mm3 (0.0-0.8) H 08/05/18 03:54 Eos # 0.3 K/mm3 (0.0-0.4) 08/05/18 03:54 Baso # 0.2 K/mm3 (0.0-0.1) H 08/05/18 03:54 Seg Neutrophils % 76.6 % (40.0-70.0) H 08/05/18 03:54 Seg Neutrophils # 10.4 K/mm3 (1.8-7.7) H 08/05/18 03:54 Sodium 143 mmol/L (137-145) 08/05/18 03:54 Potassium 5.3 mmol/L (3.6-5.0) H 08/05/18 03:54 Chloride 112.6 mmol/L (98-107) H 08/05/18 03:54 Carbon Dioxide 21 mmol/L (22-30) L 08/05/18 03:54 Anion Gap 15 mmol/L 08/05/18 03:54 BUN 53 mg/dL (9-20) H 08/05/18 03:54 Creatinine 0.6 mg/dL (0.8-1.5) L 08/05/18 03:54 Estimated GFR > 60 ml/min 08/05/18 03:54 BUN/Creatinine Ratio 88 % 08/05/18 03:54 Glucose 102 mg/dL (75-100) H 08/05/18 03:54 POC Glucose 102 (70-105) 08/05/18 05:31 Lactic Acid 1.60 mmol/L (0.7-2.0) 07/30/18 03:26 Calcium 9.3 mg/dL (8.4-10.2) 08/05/18 03:54 Phosphorus 4.10 mg/dL (2.5-4.5) 07/31/18 04:25 Magnesium 2.70 mg/dL (1.7-2.3) H 07/31/18 04:25 Total Bilirubin 0.30 mg/dL (0.1-1.2) 08/05/18 03:54 Direct Bilirubin < 0.2 mg/dL (0-0.2) 08/05/18 03:54 AST 21 units/L (5-40) 08/05/18 03:54 ALT 26 units/L (7-56) 08/05/18 03:54 Alkaline Phosphatase 258 units/L (35-129) H 08/05/18 03:54 Troponin T 0.162 ng/mL (0.00-0.029) H* 08/01/18 05:45 Total Protein 6.1 g/dL (6.3-8.2) L 08/05/18 03:54 Albumin 1.5 g/dL (3.9-5) L 08/05/18 03:54 Albumin/Globulin Ratio 0.3 % 08/05/18 03:54 Triglycerides 130 mg/dL (2-149) 08/01/18 05:45 Cholesterol 83 mg/dL (50-199) 08/01/18 05:45 LDL Cholesterol Direct 12 mg/dL (50-130) L 08/01/18 05:45 HDL Cholesterol 17 mg/dL (40-59) L 08/01/18 05:45 Cholesterol/HDL Ratio 4.88 % 08/01/18 05:45 Urine Color [place] (Yellow) 07/29/18 21:33 Urine Turbidity Cloudy (Clear) 07/29/18 21:33 Urine pH 5.0 (5.0-7.0) 07/29/18 21:33 Ur Specific [place] 1.028 (1.003-1.030) 07/29/18 21:33 Urine Protein 100 mg/dl mg/dL (Negative) 07/29/18 21:33 Urine Glucose (UA) Neg mg/dL (Negative) 07/29/18 21:33 Urine Ketones Neg mg/dL (Negative) 07/29/18 21:33 Urine Blood Mod (Negative) 07/29/18 21:33 Urine Nitrite Neg (Negative) 07/29/18 21:33 Urine Bilirubin Neg (Negative) 07/29/18 21:33 Urine Urobilinogen 2.0 mg/dL (<2.0) 07/29/18 21:33 Ur Leukocyte Esterase Lg (Negative) 07/29/18 21:33 Urine WBC (Auto) > 182.0 /HPF (0.0-6.0) H 07/29/18 21:33 Urine RBC (Auto) > 182.0 /HPF (0.0-6.0) 07/29/18 21:33 Urine Bacteria (Auto) 4+ /HPF (Negative) 07/29/18 21:33 Urine WBC Clumps 3+ /HPF 07/29/18 21:33 Urine Mucus Few /HPF 07/29/18 21:33 Urine Eosinophils None seen (None Seen) 07/31/18 Unknown Urine Creatinine 27.3 mg/dL (0.1-20.0) H 07/31/18 Unknown Urine Sodium 99 mmol/L 07/31/18 Unknown Blood Type O POSITIVE 07/30/18 03:26 Antibody Screen Negative 07/30/18 03:26 Crossmatch See Detail 07/30/18 03:26 Active Medications - Current Medications Current Medications: Generic Name Dose Route Start Last Admin Trade Name Freq PRN Reason Stop Dose Admin Acetaminophen 650 mg 07/30/18 02:50 08/05/18 00:16 Tylenol PO 650 mg Q4H PRN Administration Pain MILD(1-3)/Fever >100.5/PRICE Lipase/Protease/Amylase 1 each 07/30/18 13:59 Pancreaze 10,500 Unit FEEDTUBE PRN PRN For Clogged Feeding Tube Ascorbic Acid 500 mg 07/30/18 10:00 08/04/18 22:58 Vitamin C PO 500 mg BID NORA Administration Atorvastatin Calcium 40 mg 08/04/18 22:00 08/04/18 23:00 Lipitor PO 40 mg QHS NORA Administration Carvedilol 3.125 mg 08/04/18 22:00 08/04/18 23:01 Coreg PO 3.125 mg BID NORA Administration Dextrose 50 ml 07/30/18 02:56 D50w (25gm) Syringe IV PRN PRN Hypoglycemia Meropenem 1,000 mg/ Sodium 100 mls @ 100 mls/hr 08/01/18 15:00 08/05/18 05:55 Chloride IV 100 mls/hr Q8HR NORA Administration Protocol Tigecycline 50 mg/ Sodium 100 mls @ 100 mls/hr 08/03/18 22:00 08/04/18 22:22 Chloride IV 100 mls/hr Q12HR NORA Administration Insulin Human Regular 0 units 07/31/18 12:00 08/05/18 05:56 Humulin R SUB-Q Not Given Q6HR [facility] Protocol Ketorolac Tromethamine 10 mg 08/05/18 10:46 Toradol FEEDTUBE 08/10/18 10:45 Q4H PRN Pain, Mild (1-3) Levetiracetam 500 mg 07/30/18 06:00 08/05/18 05:56 Keppra PO 500 mg Q12H NORA Administration Ondansetron HCl 4 mg 07/30/18 02:50 Zofran IV Q8H PRN Nausea And Vomiting Simple Syrup 15 ml 07/30/18 13:59 Simple Syrup FEEDTUBE PRN PRN Hypoglycemia Simple Syrup 30 ml 07/30/18 13:59 Simple Syrup FEEDTUBE PRN PRN Hypoglycemia Sodium Bicarbonate 325 mg 07/30/18 13:59 Sodium Bicarbonate FEEDTUBE PRN PRN For Clogged Feeding Tube Sodium Chloride 10 ml 07/30/18 10:00 08/04/18 23:00 Sodium Chloride Flush Syringe 10 Ml IV 10 ml BID NORA Administration Sodium Chloride 10 ml 07/30/18 02:50 Sodium Chloride Flush Syringe 10 Ml IV PRN PRN LINE FLUSH Sodium Polystyrene Sulfonate 30 gm 08/05/18 10:00 Kionex GA 08/05/18 12:00 ONCE NR Zinc Sulfate 220 mg 07/30/18 10:00 08/04/18 10:33 Zinc Sulfate PO 220 mg QDAY NORA Administration Nutrition/Malnutrition Assess - Dietary Evaluation Nutrition/Malnutrition Findings: Nutrition Notes Start: 07/30/18 0 9:58 Freq: Status: Active Protocol: Document 08/01/18 13:22 OL (Rec: 08/01/18 13:25 OL [id number]) Nutrition Notes Initial or Follow up Reassessment Current Diagnosis Coronary Artery Disease, Decubitus(Pressure Ulcer), Diabetes,Hypertension,Heart Failure Other Pertinent Diagnosis Septic shock, UTI, Seizure D/O , anemia Current Diet Promote at 75mL/hr with 50mL flush q4h or per ND Labs/Tests BUN 60 glucose 123 Pertinent Medications zinc sulfate, vitamin c Height 5 ft 10 in Weight 58.468 kg [place] Body Weight (kg) 75.45 BMI 18.5 Subjective/Other Information Promote infusing at 75mL/hr. Mario added for wound healing. Provides additional 19mg zinc Burn Absent Trauma Absent #1 Nutrition Diagnosis Malnutrition Diagnosis Progress(for reassessment Continues documentation) Is patient on ventilator? No Is Patient Ambulatory and/or Out of Bed No REE-([facility]-confined to bed) 1638.948 Kcal/Kg value to use for calculation 35 Approximate Energy Requirements Using 2046 kcal/Kg Additional Notes protein (1.5-2g/kg): 88-117g fluid: 1mL/kcal or per MD Nutrition Intervention Nutrition Support: Promote at 75mL/hr with 50mL flush q4h or per MD Kcal 1,800 Protein (gm) 113 Carbohydrates (gm) 234 Fluid (mL) 1,510 Fiber (gm) 0 Goal #1 TF tolerance Goal #2 TF to meet 100% energy and pro needs Goal #3 Wt maintenance and/or gain Follow-Up By: 08/07/18 Additional Comments f/u: stable TF
[2018-08-05] MEDS: SODIUM CHLORIDE FLUSH SYRINGE 10 ML IV SCH ×2 (11:08→22:04)
[2018-08-05] MEDS: COREG PO SCH ×2 (11:10→23:57)
[2018-08-05] MEDS ORDERED: KIONEX PO ONE (11:13)
[2018-08-06] MEDS: MERREM 1,000 MG in NACL 0.9% 100 ML IV SCH ×2 (06:17→14:58)
[2018-08-06] MEDS: HumuLIN R SUB-Q SCH ×2 (06:18→12:00)
[2018-08-06] MEDS: KEPPRA PO SCH (06:19)
[2018-08-06 06:20] LABS: Hemoglobin 9.8 gm/dl (11.8-15.2); Mean Corpuscular HGB Conc 33 % (32-34); Mean Corpuscular Volume 86 fl (84-94); Platelet Count 538 K/mm3 (140-440); Red Blood Count 3.48 M/mm3 (3.65-5.03); Red Cell Distribution Width 17.6 % (13.2-15.2)
[2018-08-06 06:32] LABS: BUN/Creatinine Ratio 76; Blood Urea Nitrogen 53 mg/dL (9-20); Calcium 8.5 mg/dL (8.4-10.2); Hemolysis Index 29
[2018-08-06 07:16] LABS: Basophils # (Auto) 0.2 K/mm3 (0.0-0.1); Basophils % (Auto) 1.4 % (0.0-1.8); Eosinophils # (Auto) 0.6 K/mm3 (0.0-0.4); Eosinophils % (Auto) 4.4 % (0.0-4.3); Lymphocytes # (Auto) 1.5 K/mm3 (1.2-5.4); Monocytes # (Auto) 1.4 K/mm3 (0.0-0.8)
--- NOTE | 2018-08-06 08:54 | Progress Note ---
Assessment and Plan 1. Acute kidney injury: Vasomotor / hemodynamic MÓNICA in the setting of hypotension, sepsis and volume depletion. CT abdomen was negative for hydronephrosis. Renal function is better. Monitor renal function. Avoid nephrotoxic agents. Meds dosage based on GFR. 2. FEN: Hyperkalemia, Kayexalate, Insulin-Dextrose and IV Calcium ordered. Metabolic acidosis. Edema, improving. On tube feeding. Monitor lytes. 3. Sepsis with shock: Off pressors. 4. Anemia: S/p PRBC. 5. Multiple decubitus ulcers. 6. Shock Liver. Subjective Date of service: 08/06/18 Principal diagnosis: Chest Pain Interval history: Patient was seen and examined at the bedside. Objective - Vital Signs Vital signs: Vital Signs - 12hr 08/05/18 08/05/18 08/05/18 21:00 21:10 22:00 Temperature Pulse Rate 98 H 97 H Pulse Rate [ From Monitor] Respiratory 14 26 H Rate Blood Pressure 133/75 123/70 O2 Sat by Pulse 99 100 99 Oximetry 08/05/18 08/05/18 08/06/18 23:00 23:57 00:00 Temperature 101.0 F H Pulse Rate 95 H 97 H 96 H Pulse Rate [ 97 H From Monitor] Respiratory 24 26 H Rate Blood Pressure 114/67 114/67 125/75 O2 Sat by Pulse 99 97 Oximetry 08/06/18 08/06/18 08/06/18 01:00 02:00 03:00 Temperature Pulse Rate 76 75 86 Pulse Rate [ From Monitor] Respiratory 20 23 23 Rate Blood Pressure 131/67 118/60 116/68 O2 Sat by Pulse 98 97 97 Oximetry 08/06/18 08/06/18 08/06/18 04:00 05:00 06:00 Temperature Pulse Rate 89 88 88 Pulse Rate [ 85 From Monitor] Respiratory 22 30 H 24 Rate Blood Pressure 123/76 124/70 123/71 O2 Sat by Pulse 97 98 Oximetry 08/06/18 07:40 Temperature Pulse Rate Pulse Rate [ From Monitor] Respiratory Rate Blood Pressure O2 Sat by Pulse 98 Oximetry - General Appearance General appearance: well-developed, appears stated age, other (not in distress) EENT: ATNC, PERRL Neck: other (Trachea midline) Respiratory: Present: Clear to Ascultation Cardiology: regular, S1S2, no murmurs Gastrointestinal: normoactive bowel sounds, other (PEG tube noted) Integumentary: ulcer, decubiti Neurologic: other (answers few questions, not following any command) Musculoskeletal: other (multiple contractures noted) - Lab 08/06/18 05:36 08/06/18 05:36 Most recent lab results Calcium 8.5 mg/dL (8.4-10.2) 08/06/18 05:36 Phosphorus 4.10 mg/dL (2.5-4.5) 07/31/18 04:25 Magnesium 2.00 mg/dL (1.7-2.3) 08/06/18 05:36 Urine Creatinine 27.3 mg/dL (0.1-20.0) H 07/31/18 Unknown Urine Sodium 99 mmol/L 07/31/18 Unknown Medications & Allergies - Medications Allergies/Adverse Reactions: Allergies tramadol Allergy (Verified 07/29/18 18:39) Unknown Home Medications: Home Medications Medication Instructions Recorded Confirmed Last Taken Type amLODIPine [Norvasc] 10 mg NGTUBE DAILY 06/02/16 07/30/18 Unknown History Multivit-Min/Iron Fum/Folic AC 1 each PO DAILY 03/24/18 07/30/18 Unknown History [Cxryj-Aealqfo-Xfaabrpt Tablet] Carvedilol [Coreg] 6.25 mg PO Q12H 06/13/18 07/30/18 Unknown History Acetaminophen 650 mg NGTUBE Q6H PRN 07/30/18 07/30/18 Unknown History Apixaban [Eliquis] 2.5 mg PO Q12H 07/30/18 07/30/18 Unknown History AtorvaSTATin [Lipitor] 40 mg NGTUBE QHS 07/30/18 07/30/18 Unknown History Dutasteride 0.5 mg NGTUBE QAM 07/30/18 07/30/18 Unknown History Furosemide [Lasix TAB] 40 mg PO QDAY 07/30/18 07/30/18 Unknown History Ipratropium/Albuterol Sulfate 1 ampul IH BID 07/30/18 07/30/18 Unknown History [DUONEB *Not for PRN Use*] Lisinopril [Zestril TAB] 40 mg PO QDAY 07/30/18 07/30/18 Unknown History Oxycodone HCl/Acetaminophen 1 each PO Q8HR PRN 07/30/18 07/30/18 Unknown History [Percocet 7.5/325 mg] Tamsulosin [Flomax] 0.4 mg PO QDAY 07/30/18 07/30/18 Unknown History Vit C/Ascorbate Calcium,Sodium 500 mg NGTUBE BID 07/30/18 07/30/18 Unknown History [Vitamin C 500 mg/15 ml Liquid] Zinc Sulfate 220 mg NGTUBE QDAY 07/30/18 07/30/18 Unknown History diphenhydrAMINE [Benadryl CAP] 25 mg NGTUBE Q6H PRN 07/30/18 07/30/18 Unknown History levETIRAcetam [Keppra INJ] 500 mg PO Q12H 07/30/18 07/30/18 Unknown History Active Medications: Generic Name Dose Route Start Last Admin Trade Name Freq PRN Reason Stop Dose Admin Acetaminophen 650 mg 07/30/18 02:50 08/05/18 23:54 Tylenol PO 650 mg Q4H PRN Administration Pain MILD(1-3)/Fever >100.5/PRICE Lipase/Protease/Amylase 1 each 07/30/18 13:59 Pancreaze 10,500 Unit FEEDTUBE PRN PRN For Clogged Feeding Tube Ascorbic Acid 500 mg 07/30/18 10:00 08/05/18 22:35 Vitamin C PO 500 mg BID NORA Administration Atorvastatin Calcium 40 mg 08/04/18 22:00 08/05/18 22:30 Lipitor PO 40 mg QHS NORA Administration Carvedilol 3.125 mg 08/04/18 22:00 08/05/18 23:57 Coreg PO 3.125 mg BID NORA Administration Dextrose 50 ml 07/30/18 02:56 D50w (25gm) Syringe IV PRN PRN Hypoglycemia Meropenem 1,000 mg/ Sodium 100 mls @ 100 mls/hr 08/01/18 15:00 08/06/18 06:17 Chloride IV 100 mls/hr Q8HR NORA Administration Protocol Tigecycline 50 mg/ Sodium 100 mls @ 100 mls/hr 08/03/18 22:00 08/05/18 22:20 Chloride IV 100 mls/hr Q12HR NORA Administration Insulin Human Regular 0 units 07/31/18 12:00 08/06/18 06:18 Humulin R SUB-Q Not Given Q6HR NORA Protocol Ketorolac Tromethamine 10 mg 08/05/18 10:46 08/05/18 17:31 Toradol FEEDTUBE 08/10/18 10:45 10 mg Q4H PRN Administration Pain, Mild (1-3) Levetiracetam 500 mg 07/30/18 06:00 08/06/18 06:19 Keppra PO 500 mg Q12H NORA Administration Ondansetron HCl 4 mg 07/30/18 02:50 Zofran IV Q8H PRN Nausea And Vomiting Simple Syrup 15 ml 07/30/18 13:59 Simple Syrup FEEDTUBE PRN PRN Hypoglycemia Simple Syrup 30 ml 07/30/18 13:59 Simple Syrup FEEDTUBE PRN PRN Hypoglycemia Sodium Bicarbonate 325 mg 07/30/18 13:59 Sodium Bicarbonate FEEDTUBE PRN PRN For Clogged Feeding Tube Sodium Chloride 10 ml 07/30/18 10:00 08/05/18 22:04 Sodium Chloride Flush Syringe 10 Ml IV 10 ml BID NORA Administration Sodium Chloride 10 ml 07/30/18 02:50 Sodium Chloride Flush Syringe 10 Ml IV PRN PRN LINE FLUSH Zinc Sulfate 220 mg 07/30/18 10:00 08/05/18 11:06 Zinc Sulfate PO 220 mg QDAY NORA Administration
[2018-08-06] MEDS ORDERED: D50W (25GM) Syringe IV ONE (08:55)
[2018-08-06] MEDS ORDERED: HumuLIN R IV ONE (09:30)
[2018-08-06] MEDS ORDERED: CALCIUM GLUCONATE 2,000 MG in NACL 0.9% 100 ML IV ONE (09:30)
[2018-08-06] MEDS: NACL 0.9% IV SCH (10:59)
[2018-08-06] MEDS: TYGACIL IV SCH (10:59)
[2018-08-06] MEDS: KIONEX PO SCH ×2 (11:01→15:12)
[2018-08-06] MEDS: COREG PO SCH (11:02)
[2018-08-06] MEDS: ZINC SULFATE PO SCH (11:03)
[2018-08-06] MEDS: SODIUM CHLORIDE FLUSH SYRINGE 10 ML IV SCH ×2 (11:03→22:05)
[2018-08-06] MEDS: VITAMIN C PO SCH ×2 (11:03→22:15)
--- NOTE | 2018-08-06 11:26 | Progress Note ---
Assessment and Plan Cultures: 07/29/2018 blood culture: E.coli, highly MDR, Proteus, beta hemolytic group G Streptococcus, Enterococcus Urine culture: mixed madeline 07/31/2018 blood culture: E. coli, 1 out of 4 bottles A/P: 67-year-old male who is a senior care resident who has been hospitalized multiple times to this hospital in the recent past. He has a history of stroke, dementia, CHF, COPD, diabetes, multiple chronic decubitus ulcers, indwelling Chaudhary catheter and multiple recurrent urinary tract infections, previous prostate abscess, hypertension was brought to the hospital this time with fevers and hypotension: 1) Septic shock secondary to bacteremia: Improved. No fever in > 24 hours. Patient with gram-positive and gram-negative bacteremia. Source is probably multiple infected decubitus ulcers and less likely UTI. 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 2) UTI: Chaudhary was apparently exchanged in ED. Continue abx. 3) Extensive and multiple decubitus ulcers: Multiple hospitalizations in the recent past. Of note, during his last hospitalization in May 2018, patient was discharged with hospice. Unclear why he was rehospitalized, would strongly encourage hospice again. Continue wound care. Prognosis is extremely poor. 4) Chronic Alk phos elevation, transaminases also elevated this time probably from shock liver. 5) ?septic arthritis of left hip from decubitus ulcer: poor prognosis. Recs: continue Tigecycline 50 mg q12 hrs Discontinue meropenem Start Vaborbactam at 4gms IV every 8 hours remove femoral TLC multiple wound infection is incurable, further antibiotic therapy is futile. Please arrange family meeting for hospice, poor prognosis f/u Blood cultures Repeat blood cultures [facility] M: [phone] O:[phone] Subjective Date of service: 08/06/18 Principal diagnosis: Chest Pain Interval history: Patient seen and examined. Complains of buttock pain, +moaning, + fevers. Objective - Exam Narrative Exam: Constitutional: Alert, Awake. Complain of buttock pain. Acute distress Head, Ears, Nose: Normocephalic, atraumatic. External ears, nose normal Eyes: Conjunctivae/corneas clear. No icterus. No ptosis. Neck: Supple, no meningeal signs Oral: no thrush Cardiovascular: S1, S2 normal. Respiratory: Good air entry, clear to auscultation bilaterally GI: Soft, non-tender; bowel sounds normal. No peritoneal signs Musculoskeletal: No pedal edema, no cyanosis. Skin: Per wound Care: LEFT HEEL UNSTAGEBALE PRESSURE INJURY. LEFT LATERAL MALLEOLUS,LEFT KNEE WOUND ALMOST HEALED. SCANT DRAINAGE. RIGHT LATERAL GREAT TOE ESCHAR., RIGHT MEDIAL LOWER LEG PRESSURE STAGE 2 LEFT MEDIAL THIGH WOUND , RIGHT LATERAL ANKLE UNSTAGEABLE PRESSURE INJURY. RIGHT LATERAL MALLEOLUS STAGE 3 PRESSURE INJURY. RIGHT MEDIAL HEEL UNSTAGEABLE PRESSURE ULCER.. UNSTAGEABLE LEFT HIP PRESSURE INJURY. UNSTAGEABLE SACRAL PRESSURE INJURY. MEASURES 14X8X1. THERE IS A NECROTIC AREA AT 9 OCLOCK. LEFT FLANK UNSTAGEABLE PRESSURE INJURY MEASURES 4X3X0.3. Hem/Lymphatic: No palpable cervical or supraclavicular nodes. No lymphangitis Psych: Mood ok. Affect Flat Neurological: Awake, alert, Acute distress - Constitutional Vitals: Vital Signs Temp Pulse Resp BP Pulse Ox 98.6 F 99 H 24 126/72 98 08/06/18 08:00 08/06/18 11:02 08/06/18 06:00 08/06/18 11:02 08/06/18 07:40 Temperature -Last 24 Hours Temperature 98.6 F Temperature 101.0 F Temperature 100.2 F Temperature 97.6 F Temperature 98.9 F - Labs CBC & Chem 7: 08/06/18 05:36 08/06/18 05:36 Labs: Abnormal lab results 08/05/18 08/06/18 08/06/18 Range/Units 23:40 03:47 05:36 WBC 12.8 H (4.5-11.0) K/mm3 RBC 3.48 L (3.65-5.03) M/mm3 Hgb 9.8 L (11.8-15.2) gm/dl Hct 30.0 L (35.5-45.6) % RDW 17.6 H (13.2-15.2) % Plt Count 538 H (140-440) K/mm3 Lymph % (Auto) 12.0 L (13.4-35.0) % Dixie % (Auto) 11.0 H (0.0-7.3) % Eos % (Auto) 4.4 H (0.0-4.3) % Dixie # 1.4 H (0.0-0.8) K/mm3 Eos # 0.6 H (0.0-0.4) K/mm3 Baso # 0.2 H (0.0-0.1) K/mm3 Seg Neutrophils % 71.2 H (40.0-70.0) % Seg Neutrophils # 9.1 H (1.8-7.7) K/mm3 Potassium (3.6-5.0) mmol/L Chloride (98-107) mmol/L Carbon Dioxide (22-30) mmol/L BUN (9-20) mg/dL Creatinine (0.8-1.5) mg/dL POC Glucose 112 H 112 H (70-105) 08/06/18 Range/Units 05:36 WBC (4.5-11.0) K/mm3 RBC (3.65-5.03) M/mm3 Hgb (11.8-15.2) gm/dl Hct (35.5-45.6) % RDW (13.2-15.2) % Plt Count (140-440) K/mm3 Lymph % (Auto) (13.4-35.0) % Dixie % (Auto) (0.0-7.3) % Eos % (Auto) (0.0-4.3) % Dixie # (0.0-0.8) K/mm3 Eos # (0.0-0.4) K/mm3 Baso # (0.0-0.1) K/mm3 Seg Neutrophils % (40.0-70.0) % Seg Neutrophils # (1.8-7.7) K/mm3 Potassium 5.9 H (3.6-5.0) mmol/L Chloride 114.9 H (98-107) mmol/L Carbon Dioxide 19 L (22-30) mmol/L BUN 53 H (9-20) mg/dL Creatinine 0.7 L (0.8-1.5) mg/dL POC Glucose (70-105)
--- NOTE | 2018-08-06 12:23 | Progress Note ---
Assessment and Plan Assessment and plan: Severe sepsis -probably 2/2 multiple infected decubitus ulcers/UTI. -On IV antibiotics, off pressor -blood cultures positive for gram-positive and gram-negative organisms -ID following UTI: -Chaudhary catheter changed on admission -Continue abx. -Urine culture contaminated. Multiple decubitus ulcers -Continue wound care. -Prognosis is very poor. Transaminitis -probably from shock liver, improved Acute kidney injury -probably vasomotor nephropathy -resolved -Avoid nephrotoxic agents. Hypernatremia -probably secondary to dehydration -Resolved Metabolic acidosis. -improving, will monitor Acute on chronic anemia -S/p 3u PRBC -H/H stable, will monitor Hyperkalemia -Kayexalate repeated today, will monitor Severe protein calorie malnutrition -On tube feeding -Dietitian following History of HTN -BP stable Seizure disorder -Continue Keppra -Seizure precautions H/O CAD -cont coreg and statin -home eliquis on hold due to the anemia H/O dementia -cont supportive care Disposition: overall prognosis is very poor. D/c will depend on clinical course Consider family discussion regarding hospice. History Interval history: 67-year-old male who is a prison resident who has been hospitalized multiple times to this hospital in the recent past. He has a history of stroke, dementia, CHF, COPD, diabetes, multiple chronic decubitus ulcers, indwelling Chaudhary catheter and multiple recurrent urinary tract infections, previous prostate abscess, hypertension was brought to the hospital this time with fevers and hypotension: No new issues overnight. Hospitalist Physical - Constitutional Vitals: Temp Pulse Resp BP Pulse Ox 98.6 F 99 H 24 126/72 98 08/06/18 08:00 08/06/18 11:02 08/06/18 06:00 08/06/18 11:02 08/06/18 07:40 General appearance: Present: no acute distress, other (ill-looking) - EENT Eyes: Present: PERRL, EOM intact ENT: hearing intact, clear oral mucosa, dentition normal - Neck Neck: Present: supple, normal ROM - Respiratory Respiratory effort: normal Respiratory: bilateral: diminished, rhonchi - Cardiovascular Rhythm: regular Heart Sounds: Present: S1 & S2. Absent: gallop, rub - Extremities Extremities: no ischemia, No edema, Full ROM - Abdominal General gastrointestinal: soft, non-tender, non-distended, normal bowel sounds - Integumentary Integumentary: Present: clear, warm, dry - Neurologic Neurologic: CNII-XII intact, moves all extremities Results - Labs CBC & Chem 7: 08/06/18 05:36 08/06/18 05:36 Labs: Laboratory Last Values WBC 12.8 K/mm3 (4.5-11.0) H 08/06/18 05:36 RBC 3.48 M/mm3 (3.65-5.03) L 08/06/18 05:36 Hgb 9.8 gm/dl (11.8-15.2) L 08/06/18 05:36 Hct 30.0 % (35.5-45.6) L 08/06/18 05:36 MCV 86 fl (84-94) 08/06/18 05:36 MCH 28 pg (28-32) 08/06/18 05:36 MCHC 33 % (32-34) 08/06/18 05:36 RDW 17.6 % (13.2-15.2) H 08/06/18 05:36 Plt Count 538 K/mm3 (140-440) H 08/06/18 05:36 Lymph % (Auto) 12.0 % (13.4-35.0) L 08/06/18 05:36 [place] % (Auto) 11.0 % (0.0-7.3) H 08/06/18 05:36 Eos % (Auto) 4.4 % (0.0-4.3) H 08/06/18 05:36 Baso % (Auto) 1.4 % (0.0-1.8) 08/06/18 05:36 Lymph # 1.5 K/mm3 (1.2-5.4) 08/06/18 05:36 [place]ady # 1.4 K/mm3 (0.0-0.8) H 08/06/18 05:36 Eos # 0.6 K/mm3 (0.0-0.4) H 08/06/18 05:36 Baso # 0.2 K/mm3 (0.0-0.1) H 08/06/18 05:36 Seg Neutrophils % 71.2 % (40.0-70.0) H 08/06/18 05:36 Seg Neutrophils # 9.1 K/mm3 (1.8-7.7) H 08/06/18 05:36 Sodium 145 mmol/L (137-145) 08/06/18 05:36 Potassium 5.9 mmol/L (3.6-5.0) H 08/06/18 05:36 Chloride 114.9 mmol/L (98-107) H 08/06/18 05:36 Carbon Dioxide 19 mmol/L (22-30) L 08/06/18 05:36 Anion Gap 17 mmol/L 08/06/18 05:36 BUN 53 mg/dL (9-20) H 08/06/18 05:36 Creatinine 0.7 mg/dL (0.8-1.5) L 08/06/18 05:36 Estimated GFR > 60 ml/min 08/06/18 05:36 BUN/Creatinine Ratio 76 % 08/06/18 05:36 Glucose 99 mg/dL (75-100) 08/06/18 05:36 POC Glucose 112 (70-105) H 08/06/18 03:47 Lactic Acid 1.60 mmol/L (0.7-2.0) 07/30/18 03:26 Calcium 8.5 mg/dL (8.4-10.2) 08/06/18 05:36 Phosphorus 4.10 mg/dL (2.5-4.5) 07/31/18 04:25 Magnesium 2.00 mg/dL (1.7-2.3) 08/06/18 05:36 Total Bilirubin 0.30 mg/dL (0.1-1.2) 08/05/18 03:54 Direct Bilirubin < 0.2 mg/dL (0-0.2) 08/05/18 03:54 AST 21 units/L (5-40) 08/05/18 03:54 ALT 26 units/L (7-56) 08/05/18 03:54 Alkaline Phosphatase 258 units/L (35-129) H 08/05/18 03:54 Troponin T 0.162 ng/mL (0.00-0.029) H* 08/01/18 05:45 Total Protein 6.1 g/dL (6.3-8.2) L 08/05/18 03:54 Albumin 1.5 g/dL (3.9-5) L 08/05/18 03:54 Albumin/Globulin Ratio 0.3 % 08/05/18 03:54 Triglycerides 130 mg/dL (2-149) 08/01/18 05:45 Cholesterol 83 mg/dL (50-199) 08/01/18 05:45 LDL Cholesterol Direct 12 mg/dL (50-130) L 08/01/18 05:45 HDL Cholesterol 17 mg/dL (40-59) L 08/01/18 05:45 Cholesterol/HDL Ratio 4.88 % 08/01/18 05:45 Urine Color [place] (Yellow) 07/29/18 21:33 Urine Turbidity Cloudy (Clear) 07/29/18 21:33 Urine pH 5.0 (5.0-7.0) 07/29/18 21:33 Ur Specific [place] 1.028 (1.003-1.030) 07/29/18 21:33 Urine Protein 100 mg/dl mg/dL (Negative) 07/29/18 21:33 Urine Glucose (UA) Neg mg/dL (Negative) 07/29/18 21:33 Urine Ketones Neg mg/dL (Negative) 07/29/18 21:33 Urine Blood Mod (Negative) 07/29/18 21:33 Urine Nitrite Neg (Negative) 07/29/18 21:33 Urine Bilirubin Neg (Negative) 07/29/18 21:33 Urine Urobilinogen 2.0 mg/dL (<2.0) 07/29/18 21:33 Ur Leukocyte Esterase Lg (Negative) 07/29/18 21:33 Urine WBC (Auto) > 182.0 /HPF (0.0-6.0) H 07/29/18 21:33 Urine RBC (Auto) > 182.0 /HPF (0.0-6.0) 07/29/18 21:33 Urine Bacteria (Auto) 4+ /HPF (Negative) 07/29/18 21:33 Urine WBC Clumps 3+ /HPF 07/29/18 21:33 Urine Mucus Few /HPF 07/29/18 21:33 Urine Eosinophils None seen (None Seen) 07/31/18 Unknown Urine Creatinine 27.3 mg/dL (0.1-20.0) H 07/31/18 Unknown Urine Sodium 99 mmol/L 07/31/18 Unknown Blood Type O POSITIVE 07/30/18 03:26 Antibody Screen Negative 07/30/18 03:26 Crossmatch See Detail 07/30/18 03:26 Active Medications - Current Medications Current Medications: Generic Name Dose Route Start Last Admin Trade Name Freq PRN Reason Stop Dose Admin Acetaminophen 650 mg 07/30/18 02:50 08/05/18 23:54 Tylenol PO 650 mg Q4H PRN Administration Pain MILD(1-3)/Fever >100.5/PRICE Lipase/Protease/Amylase 1 each 07/30/18 13:59 Pancreaze 10,500 Unit FEEDTUBE PRN PRN For Clogged Feeding Tube Ascorbic Acid 500 mg 07/30/18 10:00 08/06/18 11:03 Vitamin C PO 500 mg BID NORA Administration Atorvastatin Calcium 40 mg 08/04/18 22:00 08/05/18 22:30 Lipitor PO 40 mg QHS NORA Administration Carvedilol 3.125 mg 08/04/18 22:00 08/06/18 11:02 Coreg PO 3.125 mg BID NORA Administration Dextrose 50 ml 07/30/18 02:56 D50w (25gm) Syringe IV PRN PRN Hypoglycemia Meropenem 1,000 mg/ Sodium 100 mls @ 100 mls/hr 08/01/18 15:00 08/06/18 06:17 Chloride IV 100 mls/hr Q8HR NORA Administration Protocol Tigecycline 50 mg/ Sodium 100 mls @ 100 mls/hr 08/03/18 22:00 08/06/18 10:59 Chloride IV 100 mls/hr Q12HR NORA Administration Insulin Human Regular 0 units 07/31/18 12:00 08/06/18 06:18 Humulin R SUB-Q Not Given Q6HR NORA Protocol Levetiracetam 500 mg 07/30/18 06:00 08/06/18 06:19 Keppra PO 500 mg Q12H NORA Administration Ondansetron HCl 4 mg 07/30/18 02:50 Zofran IV Q8H PRN Nausea And Vomiting Simple Syrup 15 ml 07/30/18 13:59 Simple Syrup FEEDTUBE PRN PRN Hypoglycemia Simple Syrup 30 ml 07/30/18 13:59 Simple Syrup FEEDTUBE PRN PRN Hypoglycemia Sodium Bicarbonate 325 mg 07/30/18 13:59 Sodium Bicarbonate FEEDTUBE PRN PRN For Clogged Feeding Tube Sodium Chloride 10 ml 07/30/18 10:00 08/06/18 11:03 Sodium Chloride Flush Syringe 10 Ml IV 10 ml BID NORA Administration Sodium Chloride 10 ml 07/30/18 02:50 Sodium Chloride Flush Syringe 10 Ml IV PRN PRN LINE FLUSH Sodium Polystyrene Sulfonate 30 gm 08/06/18 09:30 08/06/18 11:01 Kionex PO 08/06/18 15:31 30 gm Q6H NORA Administration Zinc Sulfate 220 mg 07/30/18 10:00 08/06/18 11:03 Zinc Sulfate PO 220 mg QDAY NORA Administration Nutrition/Malnutrition Assess - Dietary Evaluation Nutrition/Malnutrition Findings: Nutrition Notes Start: 07/30/18 09:58 Freq: Status: Active Protocol: Document 08/01/18 13:22 OL (Rec: 08/01/18 13:25 OL [id number]) Nutrition Notes Initial or Follow up Reassessment Current Diagnosis Coronary Artery Disease, Decubitus(Pressure Ulcer), Diabetes,Hypertension,Heart Failure Other Pertinent Diagnosis Septic shock, UTI, Seizure D/O , anemia Current Diet Promote at 75mL/hr with 50mL flush q4h or per ND Labs/Tests BUN 60 glucose 123 Pertinent Medications zinc sulfate, vitamin c Height 5 ft 10 in Weight 58.468 kg [place] Body Weight (kg) 75.45 BMI 18.5 Subjective/Other Information Promote infusing at 75mL/hr. Mario added for wound healing. Provides additional 19mg zinc Burn Absent Trauma Absent #1 Nutrition Diagnosis Malnutrition Diagnosis Progress(for reassessment Continues documentation) Is patient on ventilator? No Is Patient Ambulatory and/or Out of Bed No REE-([facility]-confined to bed) 1638.948 Kcal/Kg value to use for calculation 35 Approximate Energy Requirements Using 2046 kcal/Kg Additional Notes protein (1.5-2g/kg): 88-117g fluid: 1mL/kcal or per MD Nutrition Intervention Nutrition Support: Promote at 75mL/hr with 50mL flush q4h or per MD Kcal 1,800 Protein (gm) 113 Carbohydrates (gm) 234 Fluid (mL) 1,510 Fiber (gm) 0 Goal #1 TF tolerance Goal #2 TF to meet 100% energy and pro needs Goal #3 Wt maintenance and/or gain Follow-Up By: 08/07/18 Additional Comments f/u: stable TF
[2018-08-06] MEDS: VABOMERE 4 GM in NACL 0.9% 250ML 250 ML IV SCH ×2 (15:08→22:02)
[2018-08-07] MEDS: COREG PO SCH ×3 (00:04→23:35)
[2018-08-07] MEDS: HumuLIN R SUB-Q SCH ×4 (00:29→18:11)
[2018-08-07 05:24] LABS: Basophils # (Auto) 0.1 K/mm3 (0.0-0.1); Basophils % (Auto) 0.7 % (0.0-1.8); Eosinophils # (Auto) 0.4 K/mm3 (0.0-0.4); Hematocrit 27.8 % (35.5-45.6); Hemoglobin 9.2 gm/dl (11.8-15.2); Lymphocytes # (Auto) 1.2 K/mm3 (1.2-5.4); Lymphocytes % (Auto) 9.8 % (13.4-35.0); Mean Corpuscular HGB Conc 33 % (32-34); Mean Corpuscular Volume 85 fl (84-94); Monocytes # (Auto) 1.1 K/mm3 (0.0-0.8); Monocytes % (Auto) 9.1 % (0.0-7.3); Platelet Count 633 K/mm3 (140-440); Red Blood Count 3.28 M/mm3 (3.65-5.03); Red Cell Distribution Width 17.5 % (13.2-15.2)
[2018-08-07 05:46] LABS: BUN/Creatinine Ratio 72; Blood Urea Nitrogen 43 mg/dL (9-20); Calcium 8.7 mg/dL (8.4-10.2); Hemolysis Index 0
[2018-08-07] MEDS: KEPPRA PO SCH ×2 (06:00→18:09)
[2018-08-07] MEDS: VABOMERE 4 GM in NACL 0.9% 250ML 250 ML IV SCH ×3 (06:59→23:51)
--- NOTE | 2018-08-07 08:09 | Progress Note ---
Assessment and Plan 1. Acute kidney injury: Vasomotor / hemodynamic MÓNICA in the setting of hypotension, sepsis and volume depletion. CT abdomen was negative for hydronephrosis. Renal function is better. Monitor renal function. Avoid nephrotoxic agents. Meds dosage based on GFR. 2. FEN: Hyperkalemia, monitor. Metabolic acidosis. Edema, improving. On tube feeding. Monitor lytes. 3. Sepsis with shock: Off pressors. 4. Anemia: S/p PRBC. 5. Multiple decubitus ulcers. 6. Shock Liver. Subjective Date of service: 08/07/18 Principal diagnosis: Chest Pain Interval history: Patient was seen and examined at the bedside. Objective - Vital Signs Vital signs: Vital Signs - 12hr 08/06/18 08/06/18 08/06/18 21:00 22:00 22:40 Temperature Pulse Rate 97 H 98 H Pulse Rate [ From Monitor] Respiratory 20 17 Rate Blood Pressure 128/80 136/82 O2 Sat by Pulse 98 Oximetry 08/06/18 08/07/18 08/07/18 23:00 00:00 00:04 Temperature 100.3 F H Pulse Rate 91 H 102 H 101 H Pulse Rate [ 98 H From Monitor] Respiratory 20 14 Rate Blood Pressure 132/72 135/86 135/86 O2 Sat by Pulse 94 96 Oximetry 08/07/18 08/07/18 01:00 04:00 Temperature 99.3 F Pulse Rate 98 H Pulse Rate [ From Monitor] Respiratory 21 Rate Blood Pressure 119/72 O2 Sat by Pulse 98 Oximetry - General Appearance General appearance: well-developed, appears stated age, other (not in distress) EENT: ATNC, PERRL, hearing intact Respiratory: Present: Clear to Ascultation Cardiology: regular, S1S2, no murmurs Gastrointestinal: normoactive bowel sounds, no tenderness, other (PEG tube noted) Integumentary: ulcer, decubiti Neurologic: confused, disoriented, other (not following command, able to tell his name) Musculoskeletal: other (trace extremity edema noted, contractures noted) - Lab 08/07/18 04:55 08/07/18 04:55 Most recent lab results Calcium 8.7 mg/dL (8.4-10.2) 08/07/18 04:55 Phosphorus 4.10 mg/dL (2.5-4.5) 07/31/18 04:25 Magnesium 2.00 mg/dL (1.7-2.3) 08/06/18 05:36 Urine Creatinine 27.3 mg/dL (0.1-20.0) H 07/31/18 Unknown Urine Sodium 99 mmol/L 07/31/18 Unknown Medications & Allergies - Medications Allergies/Adverse Reactions: Allergies tramadol Allergy (Verified 07/29/18 18:39) Unknown Home Medications: Home Medications Medication Instructions Recorded Confirmed Last Taken Type amLODIPine [Norvasc] 10 mg NGTUBE DAILY 06/02/16 07/30/18 Unknown History Multivit-Min/Iron Fum/Folic AC 1 each PO DAILY 03/24/18 07/30/18 Unknown History [Xzbhv-Qiriffu-Dveddgwh Tablet] Carvedilol [Coreg] 6.25 mg PO Q12H 06/13/18 07/30/18 Unknown History Acetaminophen 650 mg NGTUBE Q6H PRN 07/30/18 07/30/18 Unknown History Apixaban [Eliquis] 2.5 mg PO Q12H 07/30/18 07/30/18 Unknown History AtorvaSTATin [Lipitor] 40 mg NGTUBE QHS 07/30/18 07/30/18 Unknown History Dutasteride 0.5 mg NGTUBE QAM 07/30/18 07/30/18 Unknown History Furosemide [Lasix TAB] 40 mg PO QDAY 07/30/18 07/30/18 Unknown History Ipratropium/Albuterol Sulfate 1 ampul IH BID 07/30/18 07/30/18 Unknown History [DUONEB *Not for PRN Use*] Lisinopril [Zestril TAB] 40 mg PO QDAY 07/30/18 07/30/18 Unknown History Oxycodone HCl/Acetaminophen 1 each PO Q8HR PRN 07/30/18 07/30/18 Unknown History [Percocet 7.5/325 mg] Tamsulosin [Flomax] 0.4 mg PO QDAY 07/30/18 07/30/18 Unknown History Vit C/Ascorbate Calcium,Sodium 500 mg NGTUBE BID 07/30/18 07/30/18 Unknown History [Vitamin C 500 mg/15 ml Liquid] Zinc Sulfate 220 mg NGTUBE QDAY 07/30/18 07/30/18 Unknown History diphenhydrAMINE [Benadryl CAP] 25 mg NGTUBE Q6H PRN 07/30/18 07/30/18 Unknown History levETIRAcetam [Keppra INJ] 500 mg PO Q12H 07/30/18 07/30/18 Unknown History Active Medications: Generic Name Dose Route Start Last Admin Trade Name Freq PRN Reason Stop Dose Admin Acetaminophen 650 mg 07/30/18 02:50 08/05/18 23:54 Tylenol PO 650 mg Q4H PRN Administration Pain MILD(1-3)/Fever >100.5/PRICE Lipase/Protease/Amylase 1 each 07/30/18 13:[address] 10,500 Unit FEEDTUBE PRN PRN For Clogged Feeding Tube Ascorbic Acid 500 mg 07/30/18 10:00 08/06/18 22:15 Vitamin C PO 500 mg BID NORA Administration Atorvastatin Calcium 40 mg 08/04/18 22:00 08/06/18 22:25 Lipitor PO 40 mg QHS NORA Administration Carvedilol 3.125 mg 08/04/18 22:00 08/07/18 00:04 Coreg PO 3.125 mg BID NORA Administration Dextrose 50 ml 07/30/18 02:56 D50w (25gm) Syringe IV PRN PRN Hypoglycemia Tigecycline 50 mg/ Sodium 100 mls @ 100 mls/hr 08/03/18 22:00 08/06/18 10:59 Chloride IV 100 mls/hr Q12HR NORA Administration MEROPENEM/VABORBACTAM 4 gm/ 250 mls @ 90 mls/hr 08/06/18 15:00 08/07/18 06:59 Sodium Chloride IV 90 mls/hr Q8HR NORA Administration Insulin Human Regular 0 units 07/31/18 12:00 08/07/18 06:52 Humulin R SUB-Q Not Given Q6HR NORA Protocol Levetiracetam 500 mg 07/30/18 06:00 08/07/18 06:00 Keppra PO 500 mg Q12H NORA Administration Ondansetron HCl 4 mg 07/30/18 02:50 Zofran IV Q8H PRN Nausea And Vomiting Simple Syrup 15 ml 07/30/18 13:59 Simple Syrup FEEDTUBE PRN PRN Hypoglycemia Simple Syrup 30 ml 07/30/18 13:59 Simple Syrup FEEDTUBE PRN PRN Hypoglycemia Sodium Bicarbonate 325 mg 07/30/18 13:59 Sodium Bicarbonate FEEDTUBE PRN PRN For Clogged Feeding Tube Sodium Chloride 10 ml 07/30/18 10:00 08/06/18 22:05 Sodium Chloride Flush Syringe 10 Ml IV 10 ml BID NORA Administration Sodium Chloride 10 ml 07/30/18 02:50 Sodium Chloride Flush Syringe 10 Ml IV PRN PRN LINE FLUSH Zinc Sulfate 220 mg 07/30/18 10:00 08/06/18 11:03 Zinc Sulfate PO 220 mg QDAY NORA Administration
[2018-08-07] MEDS: SODIUM CHLORIDE FLUSH SYRINGE 10 ML IV SCH ×2 (09:08→23:38)
[2018-08-07] MEDS: VITAMIN C PO SCH ×2 (09:08→23:36)
[2018-08-07] MEDS: TYGACIL IV SCH ×3 (09:09→23:40)
[2018-08-07] MEDS: NACL 0.9% IV SCH ×3 (09:09→23:40)
[2018-08-07] MEDS: ZINC SULFATE PO SCH (09:11)
--- NOTE | 2018-08-07 10:48 | Progress Note ---
Assessment and Plan Cultures: 07/29/2018 blood culture: E.coli, highly MDR, Proteus, beta hemolytic group G Streptococcus, Enterococcus Urine culture: mixed madeline 07/31/2018 blood culture: E. coli, 1 out of 4 bottles 08/06/2018: blood culture: in progress A/P: 67-year-old male who is a care home resident who has been hospitalized multiple times to this hospital in the recent past. He has a history of stroke, dementia, CHF, COPD, diabetes, multiple chronic decubitus ulcers, indwelling Chaudhary catheter and multiple recurrent urinary tract infections, previous prostate abscess, hypertension was brought to the hospital this time with fevers and hypotension: 1) Septic shock secondary to bacteremia: On and off low grade fevers. Patient with gram-positive and gram-negative bacteremia. Source is probably multiple infected decubitus ulcers and less likely UTI. 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 2) E.Coli Bacteremia: Highly XDR organism.. Source, multiple decubitus ulcers. discontinue meropenem, switch to Vabomere, Continue IV Tigecyclin. .Micro lab to set up susceptibilities for Vabomere on the isolate, will need to be sub- cultured and sent out. 2) UTI: Chaudhary was apparently exchanged in ED. Continue abx. 3) Extensive and multiple decubitus ulcers: Multiple hospitalizations in the recent past. Of note, during his last hospitalization in May 2018, patient was discharged with hospice. Unclear why he was rehospitalized, would strongly encourage hospice again. Continue wound care. Prognosis is extremely poor. 4) Chronic Alk phos elevation, transaminases also elevated this time probably from shock liver. 5) ?septic arthritis of left hip from decubitus ulcer: poor prognosis. Recs: continue Tigecycline 50 mg q12 hrs Continue Vabomere at 4gms IV every 8 hours multiple wound infections is incurable, further antibiotic therapy is futile. Per phone discussion, daughter does not want Hospice at this time f/u Blood cultures f/u susceptibilities for vabomere - microlab called [facility] M: [phone] O:[phone] Subjective Date of service: 08/07/18 Principal diagnosis: Chest Pain Interval history: Patient seen and examined. Dr. Man at bedside for left hip and buttock I & D. Objective - Exam Narrative Exam: Constitutional: Alert, Awake. Acute distress Head, Ears, Nose: Normocephalic, atraumatic. External ears, nose normal Eyes: Conjunctivae/corneas clear. No icterus. No ptosis. Neck: Supple, no meningeal signs Oral: no thrush Cardiovascular: S1, S2 normal. Respiratory: Good air entry, clear to auscultation bilaterally GI: Soft, non-tender; bowel sounds normal. No peritoneal signs Musculoskeletal: No pedal edema, no cyanosis. Skin: multiple wounds. Bedside I & D of left hip and buttocks. Hem/Lymphatic: No palpable cervical or supraclavicular nodes. No lymphangitis Psych: Mood ok. Affect Flat Neurological: Awake, alert, Acute distress - Constitutional Vitals: Vital Signs Temp Pulse Resp BP Pulse Ox 99.3 F 98 H 21 134/69 98 08/07/18 04:00 08/07/18 09:07 08/07/18 01:00 08/07/18 09:07 08/07/18 01:00 Temperature -Last 24 Hours Temperature 99.3 F Temperature 100.3 F Temperature 98.9 F Temperature 98.0 F Temperature 98.7 F - Labs CBC & Chem 7: 08/07/18 04:55 08/07/18 04:55 Labs: Abnormal lab results 08/06/18 08/07/18 08/07/18 Range/Units 12:31 00:05 04:55 WBC 12.0 H (4.5-11.0) K/mm3 RBC 3.28 L (3.65-5.03) M/mm3 Hgb 9.2 L (11.8-15.2) gm/dl Hct 27.8 L (35.5-45.6) % RDW 17.5 H (13.2-15.2) % Plt Count 633 H (140-440) K/mm3 Lymph % (Auto) 9.8 L (13.4-35.0) % [place] % (Auto) 9.1 H (0.0-7.3) % [place] # 1.1 H (0.0-0.8) K/mm3 Seg Neutrophils % 77.4 H (40.0-70.0) % Seg Neutrophils # 9.3 H (1.8-7.7) K/mm3 Chloride (98-107) mmol/L Carbon Dioxide (22-30) mmol/L BUN (9-20) mg/dL Creatinine (0.8-1.5) mg/dL POC Glucose 136 H 67 L (70-105) 08/07/ Range/Units 04:55 WBC (4.5-11.0) K/mm3 RBC (3.65-5.03) M/mm3 Hgb (11.8-15.2) gm/dl Hct (35.5-45.6) % RDW (13.2-15.2) % Plt Count (140-440) K/mm3 Lymph % (Auto) (13.4-35.0) % [place] % (Auto) (0.0-7.3) % [place] # (0.0-0.8) K/mm3 Seg Neutrophils % (40.0-70.0) % Seg Neutrophils # (1.8-7.7) K/mm3 Chloride 115.3 H (98-107) mmol/L Carbon Dioxide 21 L (22-30) mmol/L BUN 43 H (9-20) mg/dL Creatinine 0.6 L (0.8-1.5) mg/dL POC Glucose (70-105)
[2018-08-07] MEDS ORDERED: XYLOCAINE TOPICAL 4% TP NR (11:00)
--- NOTE | 2018-08-07 11:43 | Consultation ---
History of Present Illness Consult date: 08/07/18 Chief complaint: Multiple lower extremity/sacral/back pressure ulcers - History of present illness History of present illness: 67 yo male well known to me from his [facility] visits. He has multiple pressure ulcerations of his sacrum, back and LE's related to his h/o weakness and dementia. He is maintained with PEG tube feedings. Past History Past Medical History: anemia, diabetes, heart failure, hypertension, seizures, other (Dementia, CAD, BPH, chronic bright catheter and OR resident ) Past Surgical History: Other (debridement) Social history: other ([facility]) Medications and Allergies Allergies Allergy/AdvReac Type Severity Reaction Status Date / Time tramadol Allergy Unknown Verified 07/29/18 18:39 Home Medications Medication Instructions Recorded Confirmed Last Taken Type amLODIPine [Norvasc] 10 mg NGTUBE DAILY 06/02/16 07/30/18 Unknown History Multivit-Min/Iron Fum/Folic AC 1 each PO DAILY 03/24/18 07/30/18 Unknown History [Kotii-Bcdoafm-Cokdxiaa Tablet] Carvedilol [Coreg] 6.25 mg PO Q12H 06/13/18 07/30/18 Unknown History Acetaminophen 650 mg NGTUBE Q6H PRN 07/30/18 07/30/18 Unknown History Apixaban [Eliquis] 2.5 mg PO Q12H 07/30/18 07/30/18 Unknown History AtorvaSTATin [Lipitor] 40 mg NGTUBE QHS 07/30/18 07/30/18 Unknown History Dutasteride 0.5 mg NGTUBE QAM 07/30/18 07/30/18 Unknown History Furosemide [Lasix TAB] 40 mg PO QDAY 07/30/18 07/30/18 Unknown History Ipratropium/Albuterol Sulfate 1 ampul IH BID 07/30/18 07/30/18 Unknown History [DUONEB *Not for PRN Use*] Lisinopril [Zestril TAB] 40 mg PO QDAY 07/30/18 07/30/18 Unknown History Oxycodone HCl/Acetaminophen 1 each PO Q8HR PRN 07/30/18 07/30/18 Unknown History [Percocet 7.5/325 mg] Tamsulosin [Flomax] 0.4 mg PO QDAY 07/30/18 07/30/18 Unknown History Vit C/Ascorbate Calcium,Sodium 500 mg NGTUBE BID 07/30/18 07/30/18 Unknown History [Vitamin C 500 mg/15 ml Liquid] Zinc Sulfate 220 mg NGTUBE QDAY 07/30/18 07/30/18 Unknown History diphenhydrAMINE [Benadryl CAP] 25 mg NGTUBE Q6H PRN 07/30/18 07/30/18 Unknown History levETIRAcetam [Keppra INJ] 500 mg PO Q12H 07/30/18 07/30/18 Unknown History Active Meds: Active Medications Acetaminophen (Tylenol) 650 mg PO Q4H PRN PRN Reason: Pain MILD(1-3)/Fever >100.5/PRICE Last Admin: 08/05/18 23:54 Dose: 650 mg Documented by: Lipase/Protease/Amylase (Nickie Moore 10,500 Unit) 1 each FEEDTUBE PRN PRN PRN Reason: For Clogged Feeding Tube Ascorbic Acid (Vitamin C) 500 mg PO BID [facility] Last Admin: 08/07/18 09:08 Dose: 500 mg Documented by: Atorvastatin Calcium (Lipitor) 40 mg PO QHS [facility] Last Admin: 08/06/18 22:25 Dose: 40 mg Documented by: Carvedilol (Coreg) 3.125 mg PO BID [facility] Last Admin: 08/07/18 09:07 Dose: 3.125 mg Documented by: Dextrose (D50w (25gm) Syringe) 50 ml IV PRN PRN PRN Reason: Hypoglycemia Tigecycline 50 mg/ Sodium (Chloride) 100 mls @ 100 mls/hr IV Q12HR [facility] Last Admin: 08/07/18 09:09 Dose: 100 mls/hr Documented by: MEROPENEM/VABORBACTAM 4 gm/ (Sodium Chloride) 250 mls @ 90 mls/hr IV Q8HR [facility] Last Admin: 08/07/18 06:59 Dose: 90 mls/hr Documented by: Insulin Human Regular (Humulin R) 0 units SUB-Q Q6HR [facility]; Protocol Last Admin: 08/07/18 06:52 Dose: Not Given Documented by: Levetiracetam (Keppra) 500 mg PO Q12H [facility] Last Admin: 08/07/18 06:00 Dose: 500 mg Documented by: Lidocaine HCl (Xylocaine Topical 4%) 2.5 ml TP ONCE NR Stop: 08/07/18 13:00 Ondansetron HCl (Zofran) 4 mg IV Q8H PRN PRN Reason: Nausea And Vomiting Simple Syrup (Simple Syrup) 15 ml FEEDTUBE PRN PRN PRN Reason: Hypoglycemia Simple Syrup (Simple Syrup) 30 ml FEEDTUBE PRN PRN PRN Reason: Hypoglycemia Sodium Bicarbonate (Sodium Bicarbonate) 325 mg FEEDTUBE PRN PRN PRN Reason: For Clogged Feeding Tube Sodium Chloride (Sodium Chloride Flush Syringe 10 Ml) 10 ml IV BID [facility] Last Admin: 08/07/18 09:08 Dose: 10 ml Documented by: Sodium Chloride (Sodium Chloride Flush Syringe 10 Ml) 10 ml IV PRN PRN PRN Reason: LINE FLUSH Zinc Sulfate (Zinc Sulfate) 220 mg PO QDAY [facility] Last Admin: 08/07/18 09:11 Dose: 220 mg Documented by: Review of Systems ROS unobtainable: due to mental status Exam Vital Signs Temp Pulse Resp BP Pulse Ox 99.4 F 90 16 60/29 93 07/29/18 18:35 07/29/18 18:35 07/29/18 18:35 07/29/18 18:35 07/29/18 18:35 - General physical appearance Positive: well developed, well nourished, no distress - Eyes Positive: PERRL, normal occular movement - ENT Positive: normal pinna, normal nares, normal mucosa, no hearing loss, no congestion - Neck Positive: no masses, no bruits, trachea midline, no venous distension - Respiratory Positive: normal expansion, normal respiratory effort, clear to auscultation - Cardiovascular Rhythm: regular Heart Sounds: Present: S1 & S2. Absent: rub, click - Extremities Extremity abnormal: other (Bilateral LE contractures) - Breasts Breasts: deferred - Abdomen Abdomen: Present: soft, bowel sounds normal. Absent: tender, distended Hernia: none - Genitourinary Female Genitourinary: other (Bright catheter in place.) - Integumentary other (See my op note of today.) - Neurologic Neurologic: other (Oriented to person only) - Psychiatric Psychiatric: agitated Results - Labs 08/07/18 04:55 08/07/18 04:55 Abnormal lab results 08/06/18 08/07/18 08/07/18 Range/Units 12:31 00:05 04:55 WBC 12.0 H (4.5-11.0) K/mm3 RBC 3.28 L (3.65-5.03) M/mm3 Hgb 9.2 L (11.8-15.2) gm/dl Hct 27.8 L (35.5-45.6) % RDW 17.5 H (13.2-15.2) % Plt Count 633 H (140-440) K/mm3 Lymph % (Auto) 9.8 L (13.4-35.0) % [place] % (Auto) 9.1 H (0.0-7.3) % [place] # 1.1 H (0.0-0.8) K/mm3 Seg Neutrophils % 77.4 H (40.0-70.0) % Seg Neutrophils # 9.3 H (1.8-7.7) K/mm3 Chloride (98-107) mmol/L Carbon Dioxide (22-30) mmol/L BUN (9-20) mg/dL Creatinine (0.8-1.5) mg/dL POC Glucose 136 H 67 L (70-105) 08/07/18 Range/Units 04:55 WBC (4.5-11.0) K/mm3 RBC (3.65-5.03) M/mm3 Hgb (11.8-15.2) gm/dl Hct (35.5-45.6) % RDW (13.2-15.2) % Plt Count (140-440) K/mm3 Lymph % (Auto) (13.4-35.0) % [place] % (Auto) (0.0-7.3) % [place] # (0.0-0.8) K/mm3 Seg Neutrophils % (40.0-70.0) % Seg Neutrophils # (1.8-7.7) K/mm3 Chloride 115.3 H (98-107) mmol/L Carbon Dioxide 21 L (22-30) mmol/L BUN 43 H (9-20) mg/dL Creatinine 0.6 L (0.8-1.5) mg/dL POC Glucose (70-105) Diabetes panel 08/07/18 Range/Units 04:55 Sodium 145 (137-145) mmol/L Potassium 5.0 (3.6-5.0) mmol/L Chloride 115.3 H (98-107) mmol/L Carbon Dioxide 21 L (22-30) mmol/L BUN 43 H (9-20) mg/dL Creatinine 0.6 L (0.8-1.5) mg/dL Glucose 99 (75-100) mg/dL Calcium 8.7 (8.4-10.2) mg/dL Calcium panel 08/07/18 Range/Units 04:55 Calcium 8.7 (8.4-10.2) mg/dL Pituitary panel 08/07/18 Range/Units 04:55 Sodium 145 (137-145) mmol/L Potassium 5.0 (3.6-5.0) mmol/L Chloride 115.3 H (98-107) mmol/L Carbon Dioxide 21 L (22-30) mmol/L BUN 43 H (9-20) mg/dL Creatinine 0.6 L (0.8-1.5) mg/dL Glucose 99 (75-100) mg/dL Calcium 8.7 (8.4-10.2) mg/dL Adrenal panel 08/07/18 Range/Units 04:55 Sodium 145 (137-145) mmol/L Potassium 5.0 (3.6-5.0) mmol/L Chloride 115.3 H (98-107) mmol/L Carbon Dioxide 21 L (22-30) mmol/L BUN 43 H (9-20) mg/dL Creatinine 0.6 L (0.8-1.5) mg/dL Glucose 99 (75-100) mg/dL Calcium 8.7 (8.4-10.2) mg/dL Assessment and Plan - Patient Problems (1) Pressure ulcer of left hip, stage 4 Current Visit: Yes Status: Acute Plan to address problem: 1) All pressure ulcers were debrided at the pt's bedside today. See my op note. 2) Continue intensive nutritional support. 3) ID consult appreciated. 4) Off loading as much as possible 5) I have recently had a long d/w with the pt's daughter who is his death claim clerk. Pt is incompetent b/o his dementia. Pt has stated he "would rather than have my legs amputated." The daughter is aware that discontinuing his PEG tube feedings and allowing nature to take it's course is a reasonable option. She refuses to consider LE amputation because of the above statement made by her father. Even though her father just wants to be left alone, the daughter desires continued pressure ulcer debridement to keep the wounds clean. I have debrided his wounds today and will see the pt on a weekly basis, either as an inpt or outpt.
--- NOTE | 2018-08-07 12:10 | Progress Note ---
Assessment and Plan Sepsis Hypotension -resolved Anemia Acute renal failure followed by nephrology Chest pain, atypical Multiple decubitus ulcers Resolving nonischemic cardiomyopathy [facility] [place] 2014 documents no significant coronary artery disease but a decreased ejection fraction 20%. echocardiogram 02/2018 revealed near resolution of cardiomyopathy, ejection fraction now 50-55%. LBBB, chronic Chronic elevated troponin Recommend: Diuretic management per nephrology. Otherwise, conservative cardiac management. Subjective Date of service: 08/07/18 Principal diagnosis: Chest Pain Interval history: Cardiology recalled for management of diuretics. Patient is resting in bed comfortably. No family members are present. Objective Vital Signs Temp Pulse Pulse Resp BP Pulse Ox 08/07/18 09:07 98 H 134/69 08/07/18 04:00 99.3 F 08/07/18 01:00 98 H 21 119/72 98 08/07/18 00:04 101 H 135/86 08/07/18 00:00 100.3 F H 102 H 98 H 14 135/86 96 08/06/18 23:00 91 H 20 132/72 94 08/06/18 22:40 98 08/06/18 22:00 98 H 17 136/82 08/06/18 21:00 97 H 20 128/80 08/06/18 20:06 98 H 25 H 138/83 99 08/06/18 20:00 98.9 F 99 H 97 H 11 L 138/83 08/06/18 19:00 97 H 29 H 131/78 97 08/06/18 18:00 98 H 92 H 17 127/78 99 08/06/18 17:00 98 H 23 130/80 08/06/18 16:00 98.0 F 94 H 14 128/77 99 08/06/18 15:00 97 H 25 H 117/75 98 08/06/18 14:00 103 H 22 125/79 97 08/06/18 13:00 101 H 19 116/80 96 - Physical Examination General: No Apparent Distress HEENT: Positive: PERRL Cardiac: Positive: Reg Rate and Rhythm - Labs and Meds CBC 08/07/18 Range/Units 04:55 WBC 12.0 H (4.5-11.0) K/mm3 RBC 3.28 L (3.65-5.03) M/mm3 Hgb 9.2 L (11.8-15.2) gm/dl Hct 27.8 L (35.5-45.6) % Plt Count 633 H (140-440) K/mm3 Lymph # 1.2 (1.2-5.4) K/mm3 [place] # 1.1 H (0.0-0.8) K/mm3 Eos # 0.4 (0.0-0.4) K/mm3 Baso # 0.1 (0.0-0.1) K/mm3 Comprehensive Metabolic Panel 08/07/18 Range/Units 04:55 Sodium 145 (137-145) mmol/L Potassium 5.0 (3.6-5.0) mmol/L Chloride 115.3 H (98-107) mmol/L Carbon Dioxide 21 L (22-30) mmol/L BUN 43 H (9-20) mg/dL Creatinine 0.6 L (0.8-1.5) mg/dL Glucose 99 (75-100) mg/dL Calcium 8.7 (8.4-10.2) mg/dL
--- NOTE | 2018-08-07 12:43 | Progress Note ---
Assessment and Plan Assessment and plan: Severe sepsis -probably 2/2 multiple infected decubitus ulcers/UTI. -On IV antibiotics, off pressor Escherichia coli bacteremia. Continue antibiotics per ID UTI: -Chaudhary catheter changed on admission -Continue abx. -Urine culture contaminated. Multiple decubitus ulcers -Continue wound care. -Prognosis is very poor. Transaminitis -probably from shock liver, improved Acute kidney injury -probably vasomotor nephropathy -resolved -Avoid nephrotoxic agents. Hypernatremia -probably secondary to dehydration -Resolved Metabolic acidosis. -improving, will monitor Acute on chronic anemia -S/p 3u PRBC -H/H stable, will monitor Hyperkalemia -Kayexalate repeated today, will monitor Severe protein calorie malnutrition -On tube feeding -Dietitian following History of HTN -BP stable Seizure disorder -Continue Keppra -Seizure precautions H/O CAD -cont coreg and statin -home eliquis on hold due to the anemia H/O dementia -cont supportive care Disposition: overall prognosis is very poor. D/c will depend on clinical course Consider family discussion regarding hospice. The high probability of a clinically significant, sudden or life threatening deterioration of the [immunologic] system(s) required my full and direct attention, intervention and personal management. The aggregate critical care time was [32] minutes. This time is in addition to time spent performing reported procedures but includes the following: [x] Data Review and interpretation [x] Patient assessment and monitoring of vital signs [x] Documentation [x] Medication orders and management History Interval history: 67-year-old male who is a prison resident who has been hospitalized multiple times to this hospital in the recent past. He has a history of stroke, dementia, CHF, COPD, diabetes, multiple chronic decubitus ulcers, indwelling Chaudhary catheter and multiple recurrent urinary tract infections, previous prostate abscess, hypertension was brought to the hospital this time with fevers and hypotension: No new issues overnight. Hospitalist Physical - Constitutional Vitals: Temp Pulse Resp BP Pulse Ox 99.3 F 98 H 21 134/69 98 08/07/18 04:00 08/07/18 09:07 08/07/18 01:00 08/07/18 09:07 08/07/18 01:00 General appearance: Present: no acute distress, other (ill-looking) - EENT Eyes: Present: PERRL, EOM intact ENT: hearing intact, clear oral mucosa, dentition normal - Neck Neck: Present: supple, normal ROM - Respiratory Respiratory effort: normal Respiratory: bilateral: CTA - Cardiovascular Rhythm: regular Heart Sounds: Present: S1 & S2. Absent: gallop, rub - Extremities Extremities: no ischemia, No edema, Full ROM - Abdominal General gastrointestinal: soft, non-tender, non-distended, normal bowel sounds - Integumentary Integumentary: Present: clear, warm, dry - Neurologic Neurologic: CNII-XII intact, moves all extremities Results - Labs CBC & Chem 7: 08/07/18 04:55 08/07/18 04:55 Labs: Laboratory Last Values WBC 12.0 K/mm3 (4.5-11.0) H 08/07/18 04:55 RBC 3.28 M/mm3 (3.65-5.03) L 08/07/18 04:55 Hgb 9.2 gm/dl (11.8-15.2) L 08/07/18 04:55 Hct 27.8 % (35.5-45.6) L 08/07/18 04:55 MCV 85 fl (84-94) 08/07/18 04:55 MCH 28 pg (28-32) 08/07/18 04:55 MCHC 33 % (32-34) 08/07/18 04:55 RDW 17.5 % (13.2-15.2) H 08/07/18 04:55 Plt Count 633 K/mm3 (140-440) H 08/07/18 04:55 Lymph % (Auto) 9.8 % (13.4-35.0) L 08/07/18 04:55 Kidder % (Auto) 9.1 % (0.0-7.3) H 08/07/18 04:55 Eos % (Auto) 3.0 % (0.0-4.3) 08/07/18 04:55 Baso % (Auto) 0.7 % (0.0-1.8) 08/07/18 04:55 Lymph # 1.2 K/mm3 (1.2-5.4) 08/07/18 04:55 Kidder # 1.1 K/mm3 (0.0-0.8) H 08/07/18 04:55 Eos # 0.4 K/mm3 (0.0-0.4) 08/07/18 04:55 Baso # 0.1 K/mm3 (0.0-0.1) 08/07/18 04:55 Seg Neutrophils % 77.4 % (40.0-70.0) H 08/07/18 04:55 Seg Neutrophils # 9.3 K/mm3 (1.8-7.7) H 08/07/18 04:55 Sodium 145 mmol/L (137-145) 08/07/18 04:55 Potassium 5.0 mmol/L (3.6-5.0) 08/07/18 04:55 Chloride 115.3 mmol/L (98-107) H 08/07/18 04:55 Carbon Dioxide 21 mmol/L (22-30) L 08/07/18 04:55 Anion Gap 14 mmol/L 08/07/18 04:55 BUN 43 mg/dL (9-20) H 08/07/18 04:55 Creatinine 0.6 mg/dL (0.8-1.5) L 08/07/18 04:55 Estimated GFR > 60 ml/min 08/07/18 04:55 BUN/Creatinine Ratio 72 % 08/07/18 04:55 Glucose 99 mg/dL (75-100) 08/07/18 04:55 POC Glucose 95 (70-105) 08/07/18 06:54 Lactic Acid 1.60 mmol/L (0.7-2.0) 07/30/18 03:26 Calcium 8.7 mg/dL (8.4-10.2) 08/07/18 04:55 Phosphorus 4.10 mg/dL (2.5-4.5) 07/31/18 04:25 Magnesium 2.00 mg/dL (1.7-2.3) 08/06/18 05:36 Total Bilirubin 0.30 mg/dL (0.1-1.2) 08/05/18 03:54 Direct Bilirubin < 0.2 mg/dL (0-0.2) 08/05/18 03:54 AST 21 units/L (5-40) 08/05/18 03:54 ALT 26 units/L (7-56) 08/05/18 03:54 Alkaline Phosphatase 258 units/L (35-129) H 08/05/18 03:54 Troponin T 0.162 ng/mL (0.00-0.029) H* 08/01/18 05:45 Total Protein 6.1 g/dL (6.3-8.2) L 08/05/18 03:54 Albumin 1.5 g/dL (3.9-5) L 08/05/18 03:54 Albumin/Globulin Ratio 0.3 % 08/05/18 03:54 Triglycerides 130 mg/dL (2-149) 08/01/18 05:45 Cholesterol 83 mg/dL (50-199) 08/01/18 05:45 LDL Cholesterol Direct 12 mg/dL (50-130) L 08/01/18 05:45 HDL Cholesterol 17 mg/dL (40-59) L 08/01/18 05:45 Cholesterol/HDL Ratio 4.88 % 08/01/18 05:45 Urine Color L[place] (Yellow) 07/29/18 21:33 Urine Turbidity Cloudy (Clear) 07/29/18 21:33 Urine pH 5.0 (5.0-7.0) 07/29/18 21:33 Ur Specific [place] 1.028 (1.003-1.030) 07/29/18 21:33 Urine Protein 100 mg/dl mg/dL (Negative) 07/29/18 21:33 Urine Glucose (UA) Neg mg/dL (Negative) 07/29/18 21:33 Urine Ketones Neg mg/dL (Negative) 07/29/18 21:33 Urine Blood Mod (Negative) 07/29/18 21:33 Urine Nitrite Neg (Negative) 07/29/18 21:33 Urine Bilirubin Neg (Negative) 07/29/18 21:33 Urine Urobilinogen 2.0 mg/dL (<2.0) 07/29/18 21:33 Ur Leukocyte Esterase Lg (Negative) 07/29/18 21:33 Urine WBC (Auto) > 182.0 /HPF (0.0-6.0) H 07/29/18 21:33 Urine RBC (Auto) > 182.0 /HPF (0.0-6.0) 07/29/18 21:33 Urine Bacteria (Auto) 4+ /HPF (Negative) 07/29/18 21:33 Urine WBC Clumps 3+ /HPF 07/29/18 21:33 Urine Mucus Few /HPF 07/29/18 21:33 Urine Eosinophils None seen (None Seen) 07/31/18 Unknown Urine Creatinine 27.3 mg/dL (0.1-20.0) H 07/31/18 Unknown Urine Sodium 99 mmol/L 07/31/18 Unknown Blood Type O POSITIVE 07/30/18 03:26 Antibody Screen Negative 07/30/18 03:26 Crossmatch See Detail 07/30/18 03:26 Active Medications - Current Medications Current Medications: Generic Name Dose Route Start Last Admin Trade Name Freq PRN Reason Stop Dose Admin Acetaminophen 650 mg 07/30/18 02:50 08/05/18 23:54 Tylenol PO 650 mg Q4H PRN Administration Pain MILD(1-3)/Fever >100.5/PRICE Lipase/Protease/Amylase 1 each 07/30/18 13:[address] 10,500 Unit FEEDTUBE PRN PRN For Clogged Feeding Tube Ascorbic Acid 500 mg 07/30/18 10:00 08/07/18 09:08 Vitamin C PO 500 mg BID NORA Administration Atorvastatin Calcium 40 mg 08/04/18 22:00 08/06/18 22:25 Lipitor PO 40 mg QHS NORA Administration Carvedilol 3.125 mg 08/04/18 22:00 08/07/18 09:07 Coreg PO 3.125 mg BID NORA Administration Dextrose 50 ml 07/30/18 02:56 D50w (25gm) Syringe IV PRN PRN Hypoglycemia Tigecycline 50 mg/ Sodium 100 mls @ 100 mls/hr 08/03/18 22:00 08/07/18 09:09 Chloride IV 100 mls/hr Q12HR NORA Administration MEROPENEM/VABORBACTAM 4 gm/ 250 mls @ 90 mls/hr 08/06/18 15:00 08/07/18 06:59 Sodium Chloride IV 90 mls/hr Q8HR NORA Administration Insulin Human Regular 0 units 07/31/18 12:00 08/07/18 06:52 Humulin R SUB-Q Not Given Q6HR [facility] Protocol Levetiracetam 500 mg 07/30/18 06:00 08/07/18 06:00 Keppra PO 500 mg Q12H NORA Administration Lidocaine HCl 2.5 ml 08/07/18 11:00 Xylocaine Topical 4% TP 08/07/18 13:00 ONCE NR Ondansetron HCl 4 mg 07/30/18 02:50 Zofran IV Q8H PRN Nausea And Vomiting Simple Syrup 15 ml 07/30/18 13:59 Simple Syrup FEEDTUBE PRN PRN Hypoglycemia Simple Syrup 30 ml 07/30/18 13:59 Simple Syrup FEEDTUBE PRN PRN Hypoglycemia Sodium Bicarbonate 325 mg 07/30/18 13:59 Sodium Bicarbonate FEEDTUBE PRN PRN For Clogged Feeding Tube Sodium Chloride 10 ml 07/30/18 10:00 08/07/18 09:08 Sodium Chloride Flush Syringe 10 Ml IV 10 ml BID NORA Administration Sodium Chloride 10 ml 07/30/18 02:50 Sodium Chloride Flush Syringe 10 Ml IV PRN PRN LINE FLUSH Zinc Sulfate 220 mg 07/30/18 10:00 08/07/18 09:11 Zinc Sulfate PO 220 mg QDAY NORA Administration Nutrition/Malnutrition Assess - Dietary Evaluation Nutrition/Malnutrition Findings: Nutrition Notes Start: 07/30/18 09:58 Freq: Status: Active Protocol: Document 08/01/18 13:22 OL (Rec: 08/01/18 13:25 OL [id number]) Nutrition Notes Initial or Follow up Reassessment Current Diagnosis Coronary Artery Disease, Decubitus(Pressure Ulcer), Diabetes,Hypertension,Heart Failure Other Pertinent Diagnosis Septic shock, UTI, Seizure D/O , anemia Current Diet Promote at 75mL/hr with 50mL flush q4h or per ND Labs/Tests BUN 60 glucose 123 Pertinent Medications zinc sulfate, vitamin c Height 5 ft 10 in Weight 58.468 kg [place] Body Weight (kg) 75.45 BMI 18.5 Subjective/Other Information Promote infusing at 75mL/hr. Mario added for wound healing. Provides additional 19mg zinc Burn Absent Trauma Absent #1 Nutrition Diagnosis Malnutrition Diagnosis Progress(for reassessment Continues documentation) Is patient on ventilator? No Is Patient Ambulatory and/or Out of Bed No REE-([facility]-confined to bed) 1638.948 Kcal/Kg value to use for calculation 35 Approximate Energy Requirements Using 2046 kcal/Kg Additional Notes protein (1.5-2g/kg): 88-117g fluid: 1mL/kcal or per MD Nutrition Intervention Nutrition Support: Promote at 75mL/hr with 50mL flush q4h or per MD Kcal 1,800 Protein (gm) 113 Carbohydrates (gm) 234 Fluid (mL) 1,510 Fiber (gm) 0 Goal #1 TF tolerance Goal #2 TF to meet 100% energy and pro needs Goal #3 Wt maintenance and/or gain Follow-Up By: 08/07/18 Additional Comments f/u: stable TF
--- NOTE | 2018-08-07 12:48 | Procedure Note ---
Date of procedure: 08/07/18 Pre-op diagnosis: Multiple LE, sacral and left back pressure ulcers Post-op diagnosis: same Procedure: Surgical, excisional debridement of wounds as noted below. Description of procedure: Pt was first positioned left side down. Topical 4% Lidocaine was applied to his right lateral leg, right lateral ankle and sacral pressure ulcers. His right lateral leg, right lateral ankle and sacral pressure ulcers were surgically, excisionally debrided of necrotic skin and SQ tissue with a curette, scissors, scalpel and forceps. Bleeding was minimal and was controlled with pressure. Final wound measurements are as noted below. Wounds were then dressed by the Wound Care nurseMelissa. Pt was repositioned right side down. Topical 4% Lidocaine was applied to all of the below wounds. His left hip ulcer was surgically, excisionally debrided of necrotic muscle, fascia and bone with scissors and forceps. The left hip joint was grossly exposed during this debridement. Bleeding was minimal and was controlled with pressure. Final wound measurements are as noted below. Pt's left heel ulcer was then surgically, excisionally debrided of necrotic SQ tissue and muscle with forceps and scalpel. Bleeding was minimal and was controlled with pressure. Final wound measurements are as noted below. Finally, pt's left back and right medial leg ulcers were surgically, excisionally debrided of necrotic skin and SQ tissue with a curette, scalpel and forceps. Bleeding was minimal and was controlled with pressure. Final wound measurements are as noted below. All of these wounds were then dressed by the Wound Care nurseMelissa. Pt tolerated the procedure well. Final wound measurements: 1) Left hip: 7 x 7 x 4.5 cm 2) Left heel: 3 x 4.5 x 1 cm 3) Sacrum: 15 x 12 x 1 cm 4) Right medial le x 3 x 0.4 cm 5) Left back: 1.5 x 3 x 0.5 cm 6) Right lateral le.5 x 6 x 0.7 cm 7) Right lateral ankle: 3 x 3 x 0.7 cm Anesthesia: other (4% topical lidocaine) Surgeon: FABRICIO WASHINGTON Estimated blood loss: minimal Pathology: none Specimen disposition: discarded Condition: stable Disposition: no change
[2018-08-07] MEDS: TYLENOL PO PRN (23:36)
[2018-08-08] MEDS: HumuLIN R SUB-Q SCH ×3 (05:57→19:47)
[2018-08-08] MEDS: KEPPRA PO SCH ×3 (05:58→19:47)
[2018-08-08] MEDS: VABOMERE 4 GM in NACL 0.9% 250ML 250 ML IV SCH ×3 (06:29→22:04)
--- NOTE | 2018-08-08 09:11 | Progress Note ---
Assessment and Plan 1. Acute kidney injury: Vasomotor / hemodynamic MÓNICA in the setting of hypotension, sepsis and volume depletion. CT abdomen was negative for hydronephrosis. Renal function is better. Monitor renal function. Avoid nephrotoxic agents. Meds dosage based on GFR. 2. FEN: Hyperkalemia, monitor. Metabolic acidosis. Edema, improving. On tube feeding. Monitor lytes. 3. Sepsis with shock: Off pressors. 4. Anemia: S/p PRBC. 5. Multiple decubitus ulcers: S/p debridement. 6. Shock Liver. Subjective Date of service: 08/08/18 Principal diagnosis: Chest Pain Interval history: Patient was seen and examined at the bedside. Objective - Vital Signs Vital signs: Vital Signs - 12hr 08/07/18 08/07/18 08/07/18 22:00 23:00 23:35 Temperature Pulse Rate 96 H 97 H 97 H Pulse Rate [ From Monitor] Respiratory 28 H 36 H Rate Blood Pressure 141/84 136/82 136/82 O2 Sat by Pulse Oximetry 08/08/18 08/08/18 08/08/18 00:00 01:00 02:00 Temperature 100.2 F H Pulse Rate 99 H 103 H 99 H Pulse Rate [ 106 H From Monitor] Respiratory 22 35 H 35 H Rate Blood Pressure 121/89 122/80 123/85 O2 Sat by Pulse 97 93 93 Oximetry 08/08/18 08/08/18 08/08/18 03:00 04:00 05:00 Temperature 98.6 F Pulse Rate 97 H 99 H 102 H Pulse Rate [ 106 H From Monitor] Respiratory 29 H 29 H 30 H Rate Blood Pressure 123/85 140/76 146/78 O2 Sat by Pulse 96 95 Oximetry 08/08/18 08/08/18 08/08/18 06:00 07:00 08:00 Temperature Pulse Rate 107 H 98 H 102 H Pulse Rate [ 95 H From Monitor] Respiratory 31 H 25 H 29 H Rate Blood Pressure 143/82 135/75 136/79 O2 Sat by Pulse 96 98 96 Oximetry - General Appearance General appearance: well-developed, appears stated age, other (not in distress) EENT: ATNC, PERRL Neck: other (Trachea midline) Respiratory: Present: Clear to Ascultation Cardiology: regular, S1S2, no murmurs Gastrointestinal: normoactive bowel sounds, no tenderness, no distended, other (PEG tube noted, Foely catheter noted) Integumentary: ulcer, decubiti Neurologic: confused, other (not following any command) Musculoskeletal: other (trace LE edema, contractures noted) - Lab 08/07/18 04:55 08/07/18 04:55 Most recent lab results Calcium 8.7 mg/dL (8.4-10.2) 08/07/18 04:55 Phosphorus 4.10 mg/dL (2.5-4.5) 07/31/18 04:25 Magnesium 2.00 mg/dL (1.7-2.3) 08/06/18 05:36 Urine Creatinine 27.3 mg/dL (0.1-20.0) H 07/31/18 Unknown Urine Sodium 99 mmol/L 07/31/18 Unknown Medications & Allergies - Medications Allergies/Adverse Reactions: Allergies tramadol Allergy (Verified 07/29/18 18:39) Unknown Home Medications: Home Medications Medication Instructions Recorded Confirmed Last Taken Type amLODIPine [Norvasc] 10 mg NGTUBE DAILY 06/02/16 07/30/18 Unknown History Multivit-Min/Iron Fum/Folic AC 1 each PO DAILY 03/24/18 07/30/18 Unknown History [Acnns-Azkllzl-Gytftsis Tablet] Carvedilol [Coreg] 6.25 mg PO Q12H 06/13/18 07/30/18 Unknown History Acetaminophen 650 mg NGTUBE Q6H PRN 07/30/18 07/30/18 Unknown History Apixaban [Eliquis] 2.5 mg PO Q12H 07/30/18 07/30/18 Unknown History AtorvaSTATin [Lipitor] 40 mg NGTUBE QHS 07/30/18 07/30/18 Unknown History Dutasteride 0.5 mg NGTUBE QAM 07/30/18 07/30/18 Unknown History Furosemide [Lasix TAB] 40 mg PO QDAY 07/30/18 07/30/18 Unknown History Ipratropium/Albuterol Sulfate 1 ampul IH BID 07/30/18 07/30/18 Unknown History [DUONEB *Not for PRN Use*] Lisinopril [Zestril TAB] 40 mg PO QDAY 07/30/18 07/30/18 Unknown History Oxycodone HCl/Acetaminophen 1 each PO Q8HR PRN 07/30/18 07/30/18 Unknown History [Percocet 7.5/325 mg] Tamsulosin [Flomax] 0.4 mg PO QDAY 07/30/18 07/30/18 Unknown History Vit C/Ascorbate Calcium,Sodium 500 mg NGTUBE BID 07/30/18 07/30/18 Unknown History [Vitamin C 500 mg/15 ml Liquid] Zinc Sulfate 220 mg NGTUBE QDAY 07/30/18 07/30/18 Unknown History diphenhydrAMINE [Benadryl CAP] 25 mg NGTUBE Q6H PRN 07/30/18 07/30/18 Unknown Hi story levETIRAcetam [Keppra INJ] 500 mg PO Q12H 07/30/18 07/30/18 Unknown History Active Medications: Generic Name Dose Route Start Last Admin Trade Name Freq PRN Reason Stop Dose Admin Acetaminophen 650 mg 07/30/18 02:50 08/07/18 23:36 Tylenol PO 650 mg Q4H PRN Administration Pain MILD(1-3)/Fever >100.5/PRICE Lipase/Protease/Amylase 1 each 07/30/18 13:59 Pancreaze 10,500 Unit FEEDTUBE PRN PRN For Clogged Feeding Tube Ascorbic Acid 500 mg 07/30/18 10:00 08/07/18 23:36 Vitamin C PO 500 mg BID NORA Administration Atorvastatin Calcium 40 mg 08/04/18 22:00 08/07/18 23:35 Lipitor PO 40 mg QHS NORA Administration Carvedilol 3.125 mg 08/04/18 22:00 08/07/18 23:35 Coreg PO 3.125 mg BID NORA Administration Dextrose 50 ml 07/30/18 02:56 D50w (25gm) Syringe IV PRN PRN Hypoglycemia Tigecycline 50 mg/ Sodium 100 mls @ 100 mls/hr 08/03/18 22:00 08/07/18 23:40 Chloride IV 100 mls/hr Q12HR NORA Administration MEROPENEM/VABORBACTAM 4 gm/ 250 mls @ 90 mls/hr 08/06/18 15:00 08/08/18 06:29 Sodium Chloride IV 90 mls/hr Q8HR NORA Administration Insulin Human Regular 0 units 07/31/18 12:00 08/08/18 05:57 Humulin R SUB-Q Not Given Q6HR NORA Protocol Levetiracetam 500 mg 07/30/18 06:00 08/08/18 05:58 Keppra PO 500 mg Q12H NORA Administration Ondansetron HCl 4 mg 07/30/18 02:50 Zofran IV Q8H PRN Nausea And Vomiting Simple Syrup 15 ml 07/30/18 13:59 Simple Syrup FEEDTUBE PRN PRN Hypoglycemia Simple Syrup 30 ml 07/30/18 13:59 Simple Syrup FEEDTUBE PRN PRN Hypoglycemia Sodium Bicarbonate 325 mg 07/30/18 13:59 Sodium Bicarbonate FEEDTUBE PRN PRN For Clogged Feeding Tube Sodium Chloride 10 ml 07/30/18 10:00 08/07/18 23:38 Sodium Chloride Flush Syringe 10 Ml IV 10 ml BID NORA Administration Sodium Chloride 10 ml 07/30/18 02:50 Sodium Chloride Flush Syringe 10 Ml IV PRN PRN LINE FLUSH Zinc Sulfate 220 mg 07/30/18 10:00 08/07/18 09:11 Zinc Sulfate PO 220 mg QDAY NORA Administration
[2018-08-08] MEDS: VITAMIN C PO SCH ×2 (10:30→22:03)
[2018-08-08] MEDS: ZINC SULFATE PO SCH (10:30)
[2018-08-08] MEDS: TYGACIL IV SCH ×2 (10:30→22:04)
[2018-08-08] MEDS: SODIUM CHLORIDE FLUSH SYRINGE 10 ML IV SCH ×2 (10:30→22:04)
[2018-08-08] MEDS: COREG PO SCH ×2 (10:30→22:03)
[2018-08-08] MEDS: NACL 0.9% IV SCH ×2 (10:30→22:04)
--- NOTE | 2018-08-08 10:53 | Progress Note ---
Assessment and Plan Cultures: 07/29/2018 blood culture: E.coli, highly MDR, Proteus, beta hemolytic group G Streptococcus, Enterococcus Urine culture: mixed madeline 07/31/2018 blood culture: E. coli, 1 out of 4 bottles 08/06/2018: blood culture: no growth in 24 hours A/P: 67-year-old male who is a [facility] resident who has been hospitalized multiple times to this hospital in the recent past. He has a history of stroke, dementia, CHF, COPD, diabetes, multiple chronic decubitus ulcers, indwelling Chaudhary catheter and multiple recurrent urinary tract infections, previous prostate abscess, hypertension was brought to the hospital this time with fevers and hypotension: 1) Septic shock secondary to bacteremia: On and off low grade fevers. Patient with gram-positive and gram-negative bacteremia. Source is probably multiple infected decubitus ulcers and less likely UTI. 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 2) E.Coli Bacteremia: Highly XDR organism.. Source, multiple decubitus ulcers. discontinue meropenem, switch to Vabomere, Continue IV Tigecyclin. .Micro lab to set up susceptibilities for Vabomere on the isolate, will need to be sub- cultured and sent out. 2) UTI: Chaudhary was apparently exchanged in ED. Continue abx. 3) Extensive and multiple decubitus ulcers: Multiple hospitalizations in the recent past. Of note, during his last hospitalization in May 2018, patient was discharged with hospice. Unclear why he was rehospitalized, would strongly encourage hospice again. Continue wound care. Prognosis is extremely poor. 4) Chronic Alk phos elevation, transaminases also elevated this time probably from shock liver. 5) ?septic arthritis of left hip from decubitus ulcer: poor prognosis. Recs: continue Tigecycline 50 mg q12 hrs Continue Vabomere at 4gms IV every 8 hours Multiple wound infections is incurable, further antibiotic therapy is futile and will only breed more resistance f/u Blood cultures f/u susceptibilities for vabomere - Will treat bacteremia for 14 days [employer] [employer] M: [phone] O:[phone] Subjective Date of service: 08/08/18 Principal diagnosis: Chest Pain Interval history: Patient seen and examined. Continues to complain of buttock pain. Objective - Exam Narrative Exam: Constitutional: Alert, Awake. Acute distress Head, Ears, Nose: Normocephalic, atraumatic. External ears, nose normal Eyes: Conjunctivae/corneas clear. No icterus. No ptosis. Neck: Supple, no meningeal signs Oral: no thrush Cardiovascular: S1, S2 normal. Respiratory: Good air entry, clear to auscultation bilaterally GI: Soft, non-tender; bowel sounds normal. No peritoneal signs Musculoskeletal: No pedal edema, no cyanosis. Skin: multiple wounds. Bedside I & D of left hip and buttocks. Hem/Lymphatic: No palpable cervical or supraclavicular nodes. No lymphangitis Psych: Mood ok. Affect [place] Neurological: Awake, alert, Acute distress - Constitutional Vitals: Vital Signs Temp Pulse Resp BP Pulse Ox 98.6 F 95 H 22 136/79 96 08/08/18 04:00 08/08/18 08:00 08/08/18 08:00 08/08/18 08:00 08/08/18 08:00 Temperature -Last 24 Hours Temperature 98.6 F Temperature 100.2 F Temperature 100.3 F - Labs CBC & Chem 7: 08/07/18 04:55 08/07/18 04:55 Labs: Abnormal lab results 08/07/18 Range/Units 23:50 POC Glucose 109 H (70-105)
--- NOTE | 2018-08-08 15:02 | Progress Note ---
Assessment and Plan Assessment and plan: Severe sepsis -probably 2/2 multiple infected decubitus ulcers/UTI. -On IV antibiotics, off pressor Escherichia coli bacteremia. Continue antibiotics per ID UTI: -Chaudhary catheter changed on admission -Continue abx. -Urine culture contaminated. Multiple decubitus ulcers -Continue wound care. -Prognosis is very poor. Transaminitis -probably from shock liver, improved Acute kidney injury -probably vasomotor nephropathy -resolved -Avoid nephrotoxic agents. Hypernatremia -probably secondary to dehydration -Resolved Metabolic acidosis. -improving, will monitor Acute on chronic anemia -S/p 3u PRBC -H/H stable, will monitor Hyperkalemia -Kayexalate repeated today, will monitor Severe protein calorie malnutrition -On tube feeding -Dietitian following History of HTN -BP stable Seizure disorder -Continue Keppra -Seizure precautions H/O CAD -cont coreg and statin -home eliquis on hold due to the anemia H/O dementia -cont supportive care Disposition: overall prognosis is very poor. D/c will depend on clinical course Consider family discussion regarding hospice. History Interval history: 67-year-old male who is a [facility] resident who has been hospitalized multiple times to this hospital in the recent past. He has a history of stroke, dementia, CHF, COPD, diabetes, multiple chronic decubitus ulcers, indwelling Chaudhary catheter and multiple recurrent urinary tract infections, previous prostate abscess, hypertension was brought to the hospital this time with fevers and hypotension: No new issues overnight. Hospitalist Physical - Constitutional Vitals: Temp Pulse Resp BP Pulse Ox 98.6 F 88 26 H 121/72 98 08/08/18 04:00 08/08/18 12:00 08/08/18 12:00 08/08/18 12:00 08/08/18 12:00 General appearance: Present: no acute distress, other (ill-looking) - EENT Eyes: Present: PERRL, EOM intact ENT: hearing intact, clear oral mucosa, dentition normal - Neck Neck: Present: supple, normal ROM - Respiratory Respiratory effort: normal Respiratory: bilateral: CTA - Cardiovascular Rhythm: regular Heart Sounds: Present: S1 & S2. Absent: gallop, rub - Extremities Extremities: no ischemia, No edema, Full ROM - Abdominal General gastrointestinal: soft, non-tender, non-distended, normal bowel sounds - Integumentary Integumentary: Present: clear, warm, dry - Neurologic Neurologic: CNII-XII intact, moves all extremities Results - Labs CBC & Chem 7: 08/07/18 04:55 08/07/18 04:55 Labs: Laboratory Last Values WBC 12.0 K/mm3 (4.5-11.0) H 08/07/18 04:55 RBC 3.28 M/mm3 (3.65-5.03) L 08/07/18 04:55 Hgb 9.2 gm/dl (11.8-15.2) L 08/07/18 04:55 Hct 27.8 % (35.5-45.6) L 08/07/18 04:55 MCV 85 fl (84-94) 08/07/18 04:55 MCH 28 pg (28-32) 08/07/18 04:55 MCHC 33 % (32-34) 08/07/18 04:55 RDW 17.5 % (13.2-15.2) H 08/07/18 04:55 Plt Count 633 K/mm3 (140-440) H 08/07/18 04:55 Lymph % (Auto) 9.8 % (13.4-35.0) L 08/07/18 04:55 [place] % (Auto) 9.1 % (0.0-7.3) H 08/07/18 04:55 Eos % (Auto) 3.0 % (0.0-4.3) 08/07/18 04:55 Baso % (Auto) 0.7 % (0.0-1.8) 08/07/18 04:55 Lymph # 1.2 K/mm3 (1.2-5.4) 08/07/18 04:55 [place] # 1.1 K/mm3 (0.0-0.8) H 08/07/18 04:55 Eos # 0.4 K/mm3 (0.0-0.4) 08/07/18 04:55 Baso # 0.1 K/mm3 (0.0-0.1) 08/07/18 04:55 Seg Neutrophils % 77.4 % (40.0-70.0) H 08/07/18 04:55 Seg Neutrophils # 9.3 K/mm3 (1.8-7.7) H 08/07/18 04:55 Sodium 145 mmol/L (137-145) 08/07/18 04:55 Potassium 5.0 mmol/L (3.6-5.0) 08/07/18 04:55 Chloride 115.3 mmol/L (98-107) H 08/07/18 04:55 Carbon Dioxide 21 mmol/L (22-30) L 08/07/18 04:55 Anion Gap 14 mmol/L 08/07/18 04:55 BUN 43 mg/dL (9-20) H 08/07/18 04:55 Creatinine 0.6 mg/dL (0.8-1.5) L 08/07/18 04:55 Estimated GFR > 60 ml/min 08/07/18 04:55 BUN/Creatinine Ratio 72 % 08/07/18 04:55 Glucose 99 mg/dL (75-100) 08/07/18 04:55 POC Glucose 100 (70-105) 08/08/18 12:17 Lactic Acid 1.60 mmol/L (0.7-2.0) 07/30/18 03:26 Calcium 8.7 mg/dL (8.4-10.2) 08/07/18 04:55 Phosphorus 4.10 mg/dL (2.5-4.5) 07/31/18 04:25 Magnesium 2.00 mg/dL (1.7-2.3) 08/06/18 05:36 Total Bilirubin 0.30 mg/dL (0.1-1.2) 08/05/18 03:54 Direct Bilirubin < 0.2 mg/dL (0-0.2) 08/05/18 03:54 AST 21 units/L (5-40) 08/05/18 03:54 ALT 26 units/L (7-56) 08/05/18 03:54 Alkaline Phosphatase 258 units/L (35-129) H 08/05/18 03:54 Troponin T 0.162 ng/mL (0.00-0.029) H* 08/01/18 05:45 Total Protein 6.1 g/dL (6.3-8.2) L 08/05/18 03:54 Albumin 1.5 g/dL (3.9-5) L 08/05/18 03:54 Albumin/Globulin Ratio 0.3 % 08/05/18 03:54 Triglycerides 130 mg/dL (2-149) 08/01/18 05:45 Cholesterol 83 mg/dL (50-199) 08/01/18 05:45 LDL Cholesterol Direct 12 mg/dL (50-130) L 08/01/18 05:45 HDL Cholesterol 17 mg/dL (40-59) L 08/01/18 05:45 Cholesterol/HDL Ratio 4.88 % 08/01/18 05:45 Urine Color [place] (Yellow) 07/29/18 21:33 Urine Turbidity Cloudy (Clear) 07/29/18 21:33 Urine pH 5.0 (5.0-7.0) 07/29/18 21:33 Ur Specific [place] 1.028 (1.003-1.030) 07/29/18 21:33 Urine Protein 100 mg/dl mg/dL (Negative) 07/29/18 21:33 Urine Glucose (UA) Neg mg/dL (Negative) 07/29/18 21:33 Urine Ketones Neg mg/dL (Negative) 07/29/18 21:33 Urine Blood Mod (Negative) 07/29/18 21:33 Urine Nitrite Neg (Negative) 07/29/18 21:33 Urine Bilirubin Neg (Negative) 07/29/18 21:33 Urine Urobilinogen 2.0 mg/dL (<2.0) 07/29/18 21:33 Ur Leukocyte Esterase Lg (Negative) 07/29/18 21:33 Urine WBC (Auto) > 182.0 /HPF (0.0-6.0) H 07/29/18 21:33 Urine RBC (Auto) > 182.0 /HPF (0.0-6.0) 07/29/18 21:33 Urine Bacteria (Auto) 4+ /HPF (Negative) 07/29/18 21:33 Urine WBC Clumps 3+ /HPF 07/29/18 21:33 Urine Mucus Few /HPF 07/29/18 21:33 Urine Eosinophils None seen (None Seen) 07/31/18 Unknown Urine Creatinine 27.3 mg/dL (0.1-20.0) H 07/31/18 Unknown Urine Sodium 99 mmol/L 07/31/18 Unknown Blood Type O POSITIVE 07/30/18 03:26 Antibody Screen Negative 07/30/18 03:26 Crossmatch See Detail 07/30/18 03:26 Active Medications - Current Medications Current Medications: Generic Name Dose Route Start Last Admin Trade Name Freq PRN Reason Stop Dose Admin Acetaminophen 650 mg 07/30/18 02:50 08/07/18 23:36 Tylenol PO 650 mg Q4H PRN Administration Pain MILD(1-3)/Fever >100.5/PRICE Lipase/Protease/Amylase 1 each 07/30/18 13:59 Pancreazadela Moore 10,500 Unit FEEDTUBE PRN PRN For Clogged Feeding Tube Ascorbic Acid 500 mg 07/30/18 10:00 08/08/18 10:30 Vitamin C PO 500 mg BID NORA Administration Atorvastatin Calcium 40 mg 08/04/18 22:00 08/07/18 23:35 Lipitor PO 40 mg QHS NORA Administration Carvedilol 3.125 mg 08/04/18 22:00 08/08/18 10:30 Coreg PO 3.125 mg BID NORA Administration Dextrose 50 ml 07/30/18 02:56 D50w (25gm) Syringe IV PRN PRN Hypoglycemia Tigecycline 50 mg/ Sodium 100 mls @ 100 mls/hr 08/03/18 22:00 08/08/18 10:30 Chloride IV 100 mls/hr Q12HR NORA Administration MEROPENEM/VABORBACTAM 4 gm/ 250 mls @ 90 mls/hr 08/06/18 15:00 08/08/18 14:21 Sodium Chloride IV 90 mls/hr Q8HR NORA Administration Insulin Human Regular 0 units 07/31/18 12:00 08/08/18 12:13 Humulin R SUB-Q Not Given Q6HR [facility] Protocol Levetiracetam 500 mg 07/30/18 06:00 08/08/18 05:58 Keppra PO 500 mg Q12H NORA Administration Ondansetron HCl 4 mg 07/30/18 02:50 Zofran IV Q8H PRN Nausea And Vomiting Simple Syrup 15 ml 07/30/18 13:59 Simple Syrup FEEDTUBE PRN PRN Hypoglycemia Simple Syrup 30 ml 07/30/18 13:59 Simple Syrup FEEDTUBE PRN PRN Hypoglycemia Sodium Bicarbonate 325 mg 07/30/18 13:59 Sodium Bicarbonate FEEDTUBE PRN PRN For Clogged Feeding Tube Sodium Chloride 10 ml 07/30/18 10:00 08/08/18 10:30 Sodium Chloride Flush Syringe 10 Ml IV 10 ml BID NORA Administration Sodium Chloride 10 ml 07/30/18 02:50 Sodium Chloride Flush Syringe 10 Ml IV PRN PRN LINE FLUSH Zinc Sulfate 220 mg 07/30/18 10:00 08/08/18 10:30 Zinc Sulfate PO 220 mg QDAY NORA Administration Nutrition/Malnutrition Assess - Dietary Evaluation Nutrition/Malnutrition Findings: Nutrition Notes Start: 07/30/18 09:58 Freq: Status: Active Protocol: Document 08/07/18 15:33 RD (Rec: 08/07/18 15:37 RD [email or web address]) Co-Sign 08/07/18 15:33 LP Nutrition Notes Initial or Follow up Reassessment Current Diagnosis Coronary Artery Disease, Decubitus(Pressure Ulcer), Diabetes,Hypertension,Heart Failure Other Pertinent Diagnosis Septic shock, UTI, Seizure D/O , anemia Current Diet Promote at 75mL/hr with 50mL flush q4h or per ND Labs/Tests K 5.0 Pertinent Medications Reviewed Height 5 ft 10 in Weight 58.468 kg [place] Body Weight (kg) 75.45 BMI 18.5 Subjective/Other Information TF running at goal rate. Pt had no complaints, everything find with PEG and pt tolerating TF well. Percent of energy/protein needs met: 88%/100% Burn Absent Trauma Absent #1 Nutrition Diagnosis Malnutrition Diagnosis Progress(for reassessment Continues documentation) Is patient on ventilator? No Is Patient Ambulatory and/or Out of Bed No REE-([place]-confined to bed) 1638.948 Kcal/Kg value to use for calculation 35 Approximate Energy Requirements Using 2046 kcal/Kg Additional Notes protein (1.5-2g/kg): 88-117g fluid: 1mL/kcal or per MD Nutrition Intervention Nutrition Support: Promote at 75mL/hr with 50mL flush q4h or per MD Kcal 1,800 Protein (gm) 113 Carbohydrates (gm) 234 Fluid (mL) 1,510 Fiber (gm) 0 Goal #1 TF tolerance Goal #2 TF to meet 100% energy and pro needs Goal #3 Wt maintenance and/or gain Anticipated Discharge Needs: Continue Promote (or other high protein formula) for adequate protein for wound healing Follow-Up By: 08/13/18 Additional Comments f/u: stable TF, K labs
[2018-08-08] MEDS: TYLENOL PO PRN (22:03)
[2018-08-09] MEDS: HumuLIN R SUB-Q SCH ×2 (01:00→05:34)
[2018-08-09] MEDS: VABOMERE 4 GM in NACL 0.9% 250ML 250 ML IV SCH ×3 (05:33→22:20)
[2018-08-09] MEDS: KEPPRA PO SCH ×2 (05:37→18:23)
[2018-08-09 06:03] LABS: BUN/Creatinine Ratio 75; Blood Urea Nitrogen 45 mg/dL (9-20); Calcium 8.4 mg/dL (8.4-10.2); Hemolysis Index 31
[2018-08-09 07:07] LABS: Basophils % (Auto) 0.2 % (0.0-1.8); Eosinophils # (Auto) 0.3 K/mm3 (0.0-0.4); Eosinophils % (Auto) 2.1 % (0.0-4.3); Hematocrit 29.1 % (35.5-45.6); Hemoglobin 9.5 gm/dl (11.8-15.2); Lymphocytes # (Auto) 1.4 K/mm3 (1.2-5.4); Lymphocytes % (Auto) 11.2 % (13.4-35.0); Mean Corpuscular HGB Conc 33 % (32-34); Mean Corpuscular Volume 85 fl (84-94); Monocytes % (Auto) 8.5 % (0.0-7.3); Platelet Count 716 K/mm3 (140-440); Red Blood Count 3.42 M/mm3 (3.65-5.03); Red Cell Distribution Width 17.8 % (13.2-15.2)
[2018-08-09] MEDS ORDERED: HumuLIN R IV NR (08:47)
[2018-08-09] MEDS ORDERED: D50W (25GM) Syringe IV NR (08:47)
[2018-08-09] MEDS ORDERED: CALCIUM GLUCONATE 2,000 MG in NACL 0.9% 100 ML IV NR (08:48)
--- NOTE | 2018-08-09 08:49 | Progress Note ---
Assessment and Plan 1. Acute kidney injury: Vasomotor / hemodynamic [place] in the setting of hypotension, sepsis and volume depletion. CT abdomen was negative for hydronephrosis. Renal function is better. Monitor renal function. Avoid nephrotoxic agents. Meds dosage based on GFR. 2. 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 Kayexalate, Insulin-Dextrose, IV Calcium, Diuril and Albuterol ordered. Metabolic acidosis. Edema, improving. On tube feeding. Monitor lytes. 3. Sepsis with shock: Off pressors. 4. Anemia: S/p PRBC. 5. Multiple decubitus ulcers: S/p debridement. 6. Shock Liver. Subjective Date of service: 08/09/18 Principal diagnosis: Chest Pain Interval history: Patient was seen and examined at the bedside. Objective - Vital Signs Vital signs: Vital Signs - 12hr 08/08/18 08/08/18 08/08/18 21:00 22:00 22:03 Temperature Pulse Rate 97 H 96 H 97 H Pulse Rate [ From Monitor] Respiratory 25 H 25 H Rate Blood Pressure 141/82 140/83 140/83 O2 Sat by Pulse 96 97 Oximetry 08/08/18 08/08/18 08/09/18 23:00 23:23 00:00 Temperature 99.1 F Pulse Rate 88 85 84 Pulse Rate [ 81 From Monitor] Respiratory 16 21 20 Rate Blood Pressure 126/76 126/76 140/74 O2 Sat by Pulse 96 98 98 Oximetry 08/09/18 08/09/18 08/09/18 01:00 02:00 03:00 Temperature Pulse Rate 84 85 84 Pulse Rate [ From Monitor] Respiratory 18 18 19 Rate Blood Pressure 147/70 138/69 134/69 O2 Sat by Pulse 95 96 95 Oximetry 08/09/18 08/09/18 08/09/18 04:00 04:37 05:01 Temperature 98.6 F Pulse Rate 84 84 89 Pulse Rate [ 83 From Monitor] Respiratory 16 19 Rate Blood Pressure 135/68 147/77 O2 Sat by Pulse 98 97 Oximetry 08/09/18 08/09/18 08/09/18 06:00 07:00 08:00 Temperature 98.4 F Pulse Rate 77 88 87 Pulse Rate [ From Monitor] Respiratory 19 25 H 20 Rate Blood Pressure 142/71 147/76 151/76 O2 Sat by Pulse 96 96 96 Oximetry - General Appearance General appearance: well-developed, appears stated age, other (not in distress) EENT: ATNC, PERRL Neck: other (trachea midline) Respiratory: Present: Clear to Ascultation Cardiology: regular, S1S2, no murmurs Gastrointestinal: normoactive bowel sounds, other (PEG tube noted) Integumentary: ulcer, decubiti Neurologic: confused, disoriented, other (able to tell his name, not following command) Musculoskeletal: other (contractures noted, 1+ edema noted) - Lab 08/09/18 05:01 08/09/18 17:30 Most recent lab results Calcium 8.4 mg/dL (8.4-10.2) 08/09/18 05:01 Phosphorus 4.10 mg/dL (2.5-4.5) 07/31/18 04:25 Magnesium 2.00 mg/dL (1.7-2.3) 08/06/18 05:36 Urine Creatinine 27.3 mg/dL (0.1-20.0) H 07/31/18 Unknown Urine Sodium 99 mmol/L 07/31/18 Unknown Medications & Allergies - Medications Allergies/Adverse Reactions: Allergies tramadol Allergy (Verified 07/29/18 18:39) Unknown Home Medications: Home Medications Medication Instructions Recorded Confirmed Last Taken Type amLODIPine [Norvasc] 10 mg NGTUBE DAILY 06/02/16 07/30/18 Unknown History Multivit-Min/Iron Fum/Folic AC 1 each PO DAILY 03/24/18 07/30/18 Unknown History [Cpehb-Yiparaq-Vwjoliec Tablet] Carvedilol [Coreg] 6.25 mg PO Q12H 06/13/18 07/30/18 Unknown History Acetaminophen 650 mg NGTUBE Q6H PRN 07/30/18 07/30/18 Unknown History Apixaban [Eliquis] 2.5 mg PO Q12H 07/30/18 07/30/18 Unknown History AtorvaSTATin [Lipitor] 40 mg NGTUBE QHS 07/30/18 07/30/18 Unknown History Dutasteride 0.5 mg NGTUBE QAM 07/30/18 07/30/18 Unknown History Furosemide [Lasix TAB] 40 mg PO QDAY 07/30/18 07/30/18 Unknown History Ipratropium/Albuterol Sulfate 1 ampul IH BID 07/30/18 07/30/18 Unknown History [DUONEB *Not for PRN Use*] Lisinopril [Zestril TAB] 40 mg PO QDAY 07/30/18 07/30/18 Unknown History Oxycodone HCl/Acetaminophen 1 each PO Q8HR PRN 07/30/18 07/30/18 Unknown History [Percocet 7.5/325 mg] Tamsulosin [Flomax] 0.4 mg PO QDAY 07/30/18 07/30/18 Unknown History Vit C/Ascorbate Calcium,Sodium 500 mg NGTUBE BID 07/30/18 07/30/18 Unknown History [Vitamin C 500 mg/15 ml Liquid] Zinc Sulfate 220 mg NGTUBE QDAY 07/30/18 07/30/18 Unknown History diphenhydrAMINE [Benadryl CAP] 25 mg NGTUBE Q6H PRN 07/30/18 07/30/18 Unknown History levETIRAcetam [Keppra INJ] 500 mg PO Q12H 07/30/18 07/30/18 Unknown History Active Medications: Generic Name Dose Route Start Last Admin Trade Name Freq PRN Reason Stop Dose Admin Acetaminophen 650 mg 07/30/18 02:50 08/08/18 22:03 Tylenol PO 650 mg Q4H PRN Administration Pain MILD(1-3)/Fever >100.5/PRICE Lipase/Protease/Amylase 1 each 07/30/18 13:59 Pancreaze 10,500 Unit FEEDTUBE PRN PRN For Clogged Feeding Tube Ascorbic Acid 500 mg 07/30/18 10:00 08/08/18 22:03 Vitamin C PO 500 mg BID NORA Administration Atorvastatin Calcium 40 mg 08/04/18 22:00 08/08/18 22:03 Lipitor PO 40 mg QHS NORA Administration Carvedilol 3.125 mg 08/04/18 22:00 08/08/18 22:03 Coreg PO 3.125 mg BID NORA Administration Dextrose 50 ml 07/30/18 02:56 D50w (25gm) Syringe IV PRN PRN Hypoglycemia Tigecycline 50 mg/ Sodium 100 mls @ 100 mls/hr 08/03/18 22:00 08/08/18 22:04 Chloride IV 100 mls/hr Q12HR NORA Administration MEROPENEM/VABORBACTAM 4 gm/ 250 mls @ 90 mls/hr 08/06/18 15:00 08/09/18 05:33 Sodium Chloride IV 90 mls/hr Q8HR NORA Administration Insulin Human Regular 0 units 07/31/18 12:00 08/09/18 05:34 Humulin R SUB-Q Not Given Q6HR [facility] Protocol Levetiracetam 500 mg 07/30/18 06:00 08/09/18 05:37 Keppra PO 500 mg Q12H NORA Administration Ondansetron HCl 4 mg 07/30/18 02:50 Zofran IV Q8H PRN Nausea And Vomiting Simple Syrup 15 ml 07/30/18 13:59 Simple Syrup FEEDTUBE PRN PRN Hypoglycemia Simple Syrup 30 ml 07/30/18 13:59 Simple Syrup FEEDTUBE PRN PRN Hypoglycemia Sodium Bicarbonate 325 mg 07/30/18 13:59 Sodium Bicarbonate FEEDTUBE PRN PRN For Clogged Feeding Tube Sodium Chloride 10 ml 07/30/18 10:00 08/08/18 22:04 Sodium Chloride Flush Syringe 10 Ml IV 10 ml BID NORA Administration Sodium Chloride 10 ml 07/30/18 02:50 Sodium Chloride Flush Syringe 10 Ml IV PRN PRN LINE FLUSH Zinc Sulfate 220 mg 07/30/18 10:00 08/08/18 10:30 Zinc Sulfate PO 220 mg QDAY NORA Administration
[2018-08-09] MEDS ORDERED: KIONEX PO SCH (09:00)
[2018-08-09] MEDS ORDERED: PROVENTIL IH NR (09:00)
[2018-08-09] MEDS ORDERED: KIONEX PO NR (09:30)
[2018-08-09] MEDS: ZINC SULFATE PO SCH (09:58)
[2018-08-09] MEDS: COREG PO SCH ×2 (09:59→22:19)
[2018-08-09] MEDS: NACL 0.9% IV SCH ×2 (10:00→22:21)
[2018-08-09] MEDS: TYGACIL IV SCH ×2 (10:00→22:21)
[2018-08-09] MEDS: SODIUM CHLORIDE FLUSH SYRINGE 10 ML IV SCH ×2 (10:01→22:20)
[2018-08-09] MEDS: VITAMIN C PO SCH ×2 (10:02→22:19)
[2018-08-09] MEDS ORDERED: KIONEX PO ONE (10:30)
--- NOTE | 2018-08-09 10:52 | Progress Note ---
Assessment and Plan Cultures: 07/29/2018 blood culture: E.coli, highly MDR, Proteus, beta hemolytic group G Streptococcus, Enterococcus Urine culture: mixed madeline 07/31/2018 blood culture: E. coli, 1 out of 4 bottles 08/06/2018: blood culture: no growth to date A/P: 67-year-old male who is a [facility] resident who has been hospitalized multiple times to this hospital in the recent past. He has a history of stroke, dementia, CHF, COPD, diabetes, multiple chronic decubitus ulcers, indwelling Chaudhary catheter and multiple recurrent urinary tract infections, previous prostate abscess, hypertension was brought to the hospital this time with fevers and hypotension: 1) Septic shock secondary to bacteremia: On and off low grade fevers. Patient with gram-positive and gram-negative bacteremia. Source is probably multiple infected decubitus ulcers and less likely UTI. 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 2) E.Coli Bacteremia: Highly XDR organism.. Source, multiple decubitus ulcers. discontinue meropenem, switch to Vabomere, Continue IV Tigecyclin. .Micro lab to set up susceptibilities for Vabomere on the isolate, will need to be sub- cultured and sent out. 2) UTI: Chaudhary was apparently exchanged in ED. Continue abx. 3) Extensive and multiple decubitus ulcers: Multiple hospitalizations in the recent past. Of note, during his last hospitalization in May 2018, patient w as discharged with hospice. Unclear why he was rehospitalized, would strongly encourage hospice again. Continue wound care. Prognosis is extremely poor. 4) Chronic Alk phos elevation, transaminases also elevated this time probably from shock liver. 5) ?septic arthritis of left hip from decubitus ulcer: poor prognosis. Recs: continue Tigecycline 50 mg q12 hrs until susceptibilities for Vabomere results Continue Vabomere at 4gms IV every 8 hours total 14 days ending 08-20-18, D3 Multiple wound infections is incurable, further antibiotic therapy is futile and will only breed more resistance f/u Blood cultures for ID and RICARDO's Dr. Dillon will be chief operations officer this weekend, , please call for questions. [facility] M: [phone] O:[phone] Subjective Date of service: 08/09/18 Principal diagnosis: Chest Pain Interval history: Patient seen and examined. Alert, awake, states that he is feeling better today. No acute distress observed. Objective - Exam Narrative Exam: Constitutional: Alert, Awake. No acute distress Head, Ears, Nose: Normocephalic, atraumatic. External ears, nose normal Eyes: Conjunctivae/corneas clear. No icterus. No ptosis. Neck: Supple, no meningeal signs Oral: no thrush Cardiovascular: S1, S2 normal. Respiratory: Good air entry, clear to auscultation bilaterally GI: Soft, non-tender; bowel sounds normal. No peritoneal signs Musculoskeletal: No pedal edema, no cyanosis. Skin: multiple wounds. Bedside I & D of left hip and buttocks. Hem/Lymphatic: No palpable cervical or supraclavicular nodes. No lymphangitis Psych: Mood ok. Affect [place] Neurological: Awake, alert, calm - Constitutional Vitals: Vital Signs Temp Pulse Resp BP Pulse Ox 98.4 F 92 H 26 H 146/78 99 08/09/18 07:00 08/09/18 09:59 08/09/18 08:00 08/09/18 09:59 08/09/18 10:00 Temperature -Last 24 Hours Temperature 98.4 F Temperature 98.6 F Temperature 99.1 F Temperature 98.9 F - Labs CBC & Chem 7: 08/09/18 05:01 08/09/18 05:01 Labs: Abnormal lab results 08/09/18 08/09/18 Range/Units 05:01 05:01 WBC 12.3 H (4.5-11.0) K/mm3 RBC 3.42 L (3.65-5.03) M/mm3 Hgb 9.5 L (11.8-15.2) gm/dl Hct 29.1 L (35.5-45.6) % RDW 17.8 H (13.2-15.2) % Plt Count 716 H (140-440) K/mm3 Lymph % (Auto) 11.2 L (13.4-35.0) % [place] % (Auto) 8.5 H (0.0-7.3) % [place] # 1.0 H (0.0-0.8) K/mm3 Seg Neutrophils % 78.0 H (40.0-70.0) % Seg Neutrophils # 9.6 H (1.8-7.7) K/mm3 Sodium 146 H (137-145) mmol/L Potassium 6.5 H* D (3.6-5.0) mmol/L Chloride 114.9 H (98-107) mmol/L Carbon Dioxide 19 L (22-30) mmol/L BUN 45 H (9-20) mg/dL Creatinine 0.6 L (0.8-1.5) mg/dL Glucose 103 H (75-100) mg/dL
[2018-08-09] MEDS: KIONEX PO SCH ×2 (11:47→16:26)
[2018-08-09] MEDS ORDERED: DIURIL IV ONE (12:00)
--- NOTE | 2018-08-09 12:59 | Progress Note ---
Assessment and Plan Assessment and plan: Severe sepsis -probably 2/2 multiple infected decubitus ulcers/UTI. -On IV antibiotics, off pressor Escherichia coli bacteremia. Continue antibiotics per ID UTI: -Chaudhary catheter changed on admission -Continue abx. -Urine culture contaminated. Multiple decubitus ulcers -Continue wound care. -Prognosis is very poor. Transaminitis -probably from shock liver, improved Acute kidney injury -probably vasomotor nephropathy -resolved -Avoid nephrotoxic agents. Hypernatremia -probably secondary to dehydration -Resolved Metabolic acidosis. -improving, will monitor Acute on chronic anemia -S/p 3u PRBC -H/H stable, will monitor Hyperkalemia -Kayexalate today, recheck BMP later today Severe protein calorie malnutrition -On tube feeding -Dietitian following History of HTN -BP stable Seizure disorder -Continue Keppra -Seizure precautions H/O CAD -cont coreg and statin -home eliquis on hold due to the anemia H/O dementia -cont supportive care Disposition: overall prognosis is very poor. D/c will depend on clinical course Consider family discussion regarding hospice. History Interval history: 67-year-old male who is a [facility] resident who has been hospitalized multiple times to this hospital in the recent past. He has a history of stroke, dementia, CHF, COPD, diabetes, multiple chronic decubitus ulcers, indwelling Chaudhary catheter and multiple recurrent urinary tract infections, previous prostate abscess, hypertension was brought to the hospital this time with fevers and hypotension: No new issues overnight. Hospitalist Physical - Constitutional Vitals: Temp Pulse Resp BP Pulse Ox 98.4 F 92 H 26 H 146/78 99 08/09/18 07:00 08/09/18 09:59 08/09/18 08:00 08/09/18 09:59 08/09/18 10:00 General appearance: Present: no acute distress, other (ill-looking) - EENT Eyes: Present: PERRL, EOM intact ENT: hearing intact, clear oral mucosa, dentition normal - Neck Neck: Present: supple, normal ROM - Respiratory Respiratory effort: normal Respiratory: bilateral: CTA - Cardiovascular Rhythm: regular Heart Sounds: Present: S1 & S2. Absent: gallop, rub - Extremities Extremities: no ischemia, No edema, Full ROM - Abdominal General gastrointestinal: soft, non-tender, non-distended, normal bowel sounds - Integumentary Integumentary: Present: clear, warm, dry - Neurologic Neurologic: CNII-XII intact, moves all extremities Results - Labs CBC & Chem 7: 08/09/18 05:01 08/09/18 05:01 Labs: Laboratory Last Values WBC 12.3 K/mm3 (4.5-11.0) H 08/09/18 05:01 RBC 3.42 M/mm3 (3.65-5.03) L 08/09/18 05:01 Hgb 9.5 gm/dl (11.8-15.2) L 08/09/18 05:01 Hct 29.1 % (35.5-45.6) L 08/09/18 05:01 MCV 85 fl (84-94) 08/09/18 05:01 MCH 28 pg (28-32) 08/09/18 05:01 MCHC 33 % (32-34) 08/09/18 05:01 RDW 17.8 % (13.2-15.2) H 08/09/18 05:01 Plt Count 716 K/mm3 (140-440) H 08/09/18 05:01 Lymph % (Auto) 11.2 % (13.4-35.0) L 08/09/18 05:01 [place] % (Auto) 8.5 % (0.0-7.3) H 08/09/18 05:01 Eos % (Auto) 2.1 % (0.0-4.3) 08/09/18 05:01 Baso % (Auto) 0.2 % (0.0-1.8) 08/09/18 05:01 Lymph # 1.4 K/mm3 (1.2-5.4) 08/09/18 05:01 [place] # 1.0 K/mm3 (0.0-0.8) H 08/09/18 05:01 Eos # 0.3 K/mm3 (0.0-0.4) 08/09/18 05:01 Baso # 0.0 K/mm3 (0.0-0.1) 08/09/18 05:01 Seg Neutrophils % 78.0 % (40.0-70.0) H 08/09/18 05:01 Seg Neutrophils # 9.6 K/mm3 (1.8-7.7) H 08/09/18 05:01 Sodium 146 mmol/L (137-145) H 08/09/18 05:01 Potassium 6.5 mmol/L (3.6-5.0) H* D 08/09/18 05:01 Chloride 114.9 mmol/L (98-107) H 08/09/18 05:01 Carbon Dioxide 19 mmol/L (22-30) L 08/09/18 05:01 Anion Gap 19 mmol/L 08/09/18 05:01 BUN 45 mg/dL (9-20) H 08/09/18 05:01 Creatinine 0.6 mg/dL (0.8-1.5) L 08/09/18 05:01 Estimated GFR > 60 ml/min 08/09/18 05:01 BUN/Creatinine Ratio 75 % 08/09/18 05:01 Glucose 103 mg/dL (75-100) H 08/09/18 05:01 POC Glucose 103 (70-105) 08/09/18 05:17 Lactic Acid 1.60 mmol/L (0.7-2.0) 07/30/18 03:26 Calcium 8.4 mg/dL (8.4-10.2) 08/09/18 05:01 Phosphorus 4.10 mg/dL (2.5-4.5) 07/31/18 04:25 Magnesium 2.00 mg/dL (1.7-2.3) 08/06/18 05:36 Total Bilirubin 0.30 mg/dL (0.1-1.2) 08/05/18 03:54 Direct Bilirubin < 0.2 mg/dL (0-0.2) 08/05/18 03:54 AST 21 units/L (5-40) 08/05/18 03:54 ALT 26 units/L (7-56) 08/05/18 03:54 Alkaline Phosphatase 258 units/L (35-129) H 08/05/18 03:54 Troponin T 0.162 ng/mL (0.00-0.029) H* 08/01/18 05:45 Total Protein 6.1 g/dL (6.3-8.2) L 08/05/18 03:54 Albumin 1.5 g/dL (3.9-5) L 08/05/18 03:54 Albumin/Globulin Ratio 0.3 % 08/05/18 03:54 Triglycerides 130 mg/dL (2-149) 08/01/18 05:45 Cholesterol 83 mg/dL (50-199) 08/01/18 05:45 LDL Cholesterol Direct 12 mg/dL (50-130) L 08/01/18 05:45 HDL Cholesterol 17 mg/dL (40-59) L 08/01/18 05:45 Cholesterol/HDL Ratio 4.88 % 08/01/18 05:45 Urine Color [place] (Yellow) 07/29/18 21:33 Urine Turbidity Cloudy (Clear) 07/29/18 21:33 Urine pH 5.0 (5.0-7.0) 07/29/18 21:33 Ur Specific [place] 1.028 (1.003-1.030) 07/29/18 21:33 Urine Protein 100 mg/dl mg/dL (Negative) 07/29/18 21:33 Urine Glucose (UA) Neg mg/dL (Negative) 07/29/18 21:33 Urine Ketones Neg mg/dL (Negative) 07/29/18 21:33 Urine Blood Mod (Negative) 07/29/18 21:33 Urine Nitrite Neg (Negative) 07/29/18 21:33 Urine Bilirubin Neg (Negative) 07/29/18 21:33 Urine Urobilinogen 2.0 mg/dL (<2.0) 07/29/18 21:33 Ur Leukocyte Esterase Lg (Negative) 07/29/18 21:33 Urine WBC (Auto) > 182.0 /HPF (0.0-6.0) H 07/29/18 21:33 Urine RBC (Auto) > 182.0 /HPF (0.0-6.0) 07/29/18 21:33 Urine Bacteria (Auto) 4+ /HPF (Negative) 07/29/18 21:33 Urine WBC Clumps 3+ /HPF 07/29/18 21:33 Urine Mucus Few /HPF 07/29/18 21:33 Urine Eosinophils None seen (None Seen) 07/31/18 Unknown Urine Creatinine 27.3 mg/dL (0.1-20.0) H 07/31/18 Unknown Urine Sodium 99 mmol/L 07/31/18 Unknown Blood Type O POSITIVE 07/30/18 03:26 Antibody Screen Negative 07/30/18 03:26 Crossmatch See Detail 07/30/18 03:26 Active Medications - Current Medications Current Medications: Generic Name Dose Route Start Last Admin Trade Name Freq PRN Reason Stop Dose Admin Acetaminophen 650 mg 07/30/18 02:50 08/08/18 22:03 Tylenol PO 650 mg Q4H PRN Administration Pain MILD(1-3)/Fever >100.5/PRICE Lipase/Protease/Amylase 1 each 07/30/18 13:59 Pancreaze 10,500 Unit FEEDTUBE PRN PRN For Clogged Feeding Tube Ascorbic Acid 500 mg 07/30/18 10:00 08/09/18 10:02 Vitamin C PO 500 mg BID NORA Administration Atorvastatin Calcium 40 mg 08/04/18 22:00 08/08/18 22:03 Lipitor PO 40 mg QHS NORA Administration Carvedilol 3.125 mg 08/04/18 22:00 08/09/18 09:59 Coreg PO 3.125 mg BID NORA Administration Dextrose 50 ml 07/30/18 02:56 D50w (25gm) Syringe IV PRN PRN Hypoglycemia Tigecycline 50 mg/ Sodium 100 mls @ 100 mls/hr 08/03/18 22:00 08/09/18 10:00 Chloride IV 100 mls/hr Q12HR NORA Administration MEROPENEM/VABORBACTAM 4 gm/ 250 mls @ 90 mls/hr 08/06/18 15:00 08/09/18 05:33 Sodium Chloride IV 90 mls/hr Q8HR NORA Administration Insulin Human Regular 0 units 07/31/18 12:00 08/09/18 05:34 Humulin R SUB-Q Not Given Q6HR [facility] Protocol Levetiracetam 500 mg 07/30/18 06:00 08/09/18 05:37 Keppra PO 500 mg Q12H NORA Administration Ondansetron HCl 4 mg 07/30/18 02:50 Zofran IV Q8H PRN Nausea And Vomiting Simple Syrup 15 ml 07/30/18 13:59 Simple Syrup FEEDTUBE PRN PRN Hypoglycemia Simple Syrup 30 ml 07/30/18 13:59 Simple Syrup FEEDTUBE PRN PRN Hypoglycemia Sodium Bicarbonate 325 mg 07/30/18 13:59 Sodium Bicarbonate FEEDTUBE PRN PRN For Clogged Feeding Tube Sodium Chloride 10 ml 07/30/18 10:00 08/09/18 10:01 Sodium Chloride Flush Syringe 10 Ml IV 10 ml BID NORA Administration Sodium Chloride 10 ml 07/30/18 02:50 Sodium Chloride Flush Syringe 10 Ml IV PRN PRN LINE FLUSH Sodium Polystyrene Sulfonate 30 gm 08/09/18 10:30 08/09/18 11:47 Kionex PO 08/09/18 16:31 30 gm Q6H NORA Administration Zinc Sulfate 220 mg 07/30/18 10:00 08/09/18 09:58 Zinc Sulfate PO 220 mg QDAY ONRA Administration Nutrition/Malnutrition Assess - Dietary Evaluation Nutrition/Malnutrition Findings: Nutrition Notes Start: 07/30/18 09:58 Freq: Status: Active Protocol: Document 08/07/18 15:33 RD (Rec: 08/07/18 15:37 RD [email or web address]) Co-Sign 08/07/18 15:33 LP Nutrition Notes Initial or Follow up Reassessment Current Diagnosis Coronary Artery Disease, Decubitus(Pressure Ulcer), Diabetes,Hypertension,Heart Failure Other Pertinent Diagnosis Septic shock, UTI, Seizure D/O , anemia Current Diet Promote at 75mL/hr with 50mL flush q4h or per ND Labs/Tests K 5.0 Pertinent Medications Reviewed Height 5 ft 10 in Weight 58.468 kg [place] Body Weight (kg) 75.45 BMI 18.5 Subjective/Other Information TF running at goal rate. Pt had no complaints, everything find with PEG and pt tolerating TF well. Percent of energy/protein needs met: 88%/100% Burn Absent Trauma Absent #1 Nutrition Diagnosis Malnutrition Diagnosis Progress(for reassessment Continues documentation) Is patient on ventilator? No Is Patient Ambulatory and/or Out of Bed No REE-([facility]-confined to bed) 1638.948 Kcal/Kg value to use for calculation 35 Approximate Energy Requirements Using 2046 kcal/Kg Additional Notes protein (1.5-2g/kg): 88-117g fluid: 1mL/kcal or per MD Nutrition Intervention Nutrition Support: Promote at 75mL/hr with 50mL flush q4h or per MD Kcal 1,800 Protein (gm) 113 Carbohydrates (gm) 234 Fluid (mL) 1,510 Fiber (gm) 0 Goal #1 TF tolerance Goal #2 TF to meet 100% energy and pro needs Goal #3 Wt maintenance and/or gain Anticipated Discharge Needs: Continue Promote (or other high protein formula) for adequate protein for wound healing Follow-Up By: 08/13/18 Additional Comments f/u: stable Viridiana CASTANEDA
[2018-08-10] MEDS: HumuLIN R SUB-Q SCH ×4 (04:24→18:07)
[2018-08-10] MEDS: KEPPRA PO SCH ×2 (05:38→18:08)
[2018-08-10] MEDS: VABOMERE 4 GM in NACL 0.9% 250ML 250 ML IV SCH ×3 (05:39→23:06)
[2018-08-10 07:48] LABS: Basophils # (Auto) 0.2 K/mm3 (0.0-0.1); Basophils % (Auto) 1.2 % (0.0-1.8); Eosinophils # (Auto) 0.4 K/mm3 (0.0-0.4); Eosinophils % (Auto) 3.1 % (0.0-4.3); Hematocrit 31.1 % (35.5-45.6); Lymphocytes # (Auto) 1.4 K/mm3 (1.2-5.4); Lymphocytes % (Auto) 10.7 % (13.4-35.0); Mean Corpuscular HGB Conc 32 % (32-34); Mean Corpuscular Volume 87 fl (84-94); Monocytes # (Auto) 0.9 K/mm3 (0.0-0.8); Monocytes % (Auto) 7.1 % (0.0-7.3); Platelet Count 707 K/mm3 (140-440); Red Blood Count 3.59 M/mm3 (3.65-5.03); Red Cell Distribution Width 17.5 % (13.2-15.2)
[2018-08-10 08:04] LABS: BUN/Creatinine Ratio 63; Blood Urea Nitrogen 38 mg/dL (9-20); Calcium 8.7 mg/dL (8.4-10.2); Hemolysis Index 2
[2018-08-10] MEDS ORDERED: KIONEX PO ONE ×2 (09:00→11:30)
[2018-08-10] MEDS: ZINC SULFATE PO SCH (10:45)
[2018-08-10] MEDS: NACL 0.9% IV SCH ×2 (10:45→23:03)
[2018-08-10] MEDS: VITAMIN C PO SCH ×2 (10:45→23:11)
[2018-08-10] MEDS: TYGACIL IV SCH ×2 (10:45→23:03)
[2018-08-10] MEDS: COREG PO SCH ×2 (11:00→23:10)
[2018-08-10] MEDS: HCTZ PO SCH (11:00)
--- NOTE | 2018-08-10 12:02 | Progress Note ---
Assessment and Plan 1. Sepsis 2. Acute renal failure 3. Multiple decubitus ulcers 4. Normal left ventricular ejection fraction 50-55%. Plan. Conservative supportive cardiac management. Subjective Date of service: 08/10/18 Principal diagnosis: Chest Pain Interval history: No cardiacs symptoms. Objective Vital Signs Temp Pulse Pulse Resp BP Pulse Ox 08/10/18 11:00 144/72 08/10/18 08:00 97.8 F 84 88 19 158/81 98 08/10/18 07:00 86 22 140/75 97 08/10/18 06:01 166/91 96 08/10/18 05:32 72 F L 08/10/18 05:00 88 20 148/77 97 08/10/18 04:16 99.4 F 08/10/18 04:00 88 85 23 151/80 97 08/10/18 03:00 89 24 145/84 96 08/10/18 02:00 83 26 H 144/77 98 08/10/18 01:00 84 27 H 135/75 99 08/10/18 00:01 96 H 28 H 171/114 98 08/10/18 00:00 87 87 33 H 100 08/09/18 23:23 100 F H 08/09/18 23:00 91 H 24 144/83 97 08/09/18 22:19 93 H 160/84 08/09/18 22:00 93 H 24 160/84 96 08/09/18 21:00 92 H 26 H 151/78 97 08/09/18 20:00 92 H 92 H 22 152/78 97 08/09/18 19:47 99.9 F H 08/09/18 19:00 100 H 26 H 153/79 97 08/09/18 18:13 93 H 19 154/78 98 08/09/18 18:00 92 H 24 154/78 96 08/09/18 17:51 93 H 23 152/78 98 08/09/18 17:00 94 H 26 H 152/78 96 08/09/18 16:00 97 H 94 H 26 H 149/77 95 08/09/18 15:00 98.1 F 99 H 26 H 144/77 95 08/09/18 14:00 100 H 20 142/77 96 08/09/18 13:00 94 H 24 151/78 95 - Physical Examination General: Cachectic HEENT: Positive: PERRL, Normocephaly Neck: Positive: trachea midline. Negative: JVD/HJR Cardiac: Positive: Regular Rate, S1/S2. Negative: S3, S4 Lungs: Positive: clear to auscultation, No Wheeze, Rales, Rhonchi Skin: Positive: Ulceration, Other (multiple ulcers) Extremities: Absent: edema - Labs and Meds CBC 08/10/18 Range/Units 06:23 WBC 13.1 H (4.5-11.0) K/mm3 RBC 3.59 L (3.65-5.03) M/mm3 Hgb 10.0 L (11.8-15.2) gm/dl Hct 31.1 L (35.5-45.6) % Plt Count 707 H (140-440) K/mm3 Lymph # 1.4 (1.2-5.4) K/mm3 [place] # 0.9 H (0.0-0.8) K/mm3 Eos # 0.4 (0.0-0.4) K/mm3 Baso # 0.2 H (0.0-0.1) K/mm3 Comprehensive Metabolic Panel 08/09/18 08/10/18 Range/Units 17:30 06:23 Sodium 140 (137-145) mmol/L Potassium 5.7 H 5.5 H (3.6-5.0) mmol/L Chloride 110.2 H (98-107) mmol/L Carbon Dioxide 18 L (22-30) mmol/L BUN 38 H (9-20) mg/dL Creatinine 0.6 L (0.8-1.5) mg/dL Glucose 82 (75-100) mg/dL Calcium 8.7 (8.4-10.2) mg/dL
--- NOTE | 2018-08-10 12:24 | Progress Note ---
Assessment and Plan Assessment and plan: Severe sepsis -probably 2/2 multiple infected decubitus ulcers/UTI. -On IV antibiotics, off pressor Escherichia coli bacteremia. Continue antibiotics per ID UTI: -Chaudhary catheter changed on admission -Continue abx. -Urine culture contaminated. Multiple decubitus ulcers -Continue wound care. -Prognosis is very poor. Transaminitis -probably from shock liver, improved Acute kidney injury -probably vasomotor nephropathy -resolved -Avoid nephrotoxic agents. Hypernatremia -probably secondary to dehydration -Resolved Metabolic acidosis. -improving, will monitor Acute on chronic anemia -S/p 3u PRBC -H/H stable, will monitor Hyperkalemia -Kayexalate today, recheck BMP later today Severe protein calorie malnutrition -On tube feeding -Dietitian following History of HTN -BP stable Seizure disorder -Continue Keppra -Seizure precautions H/O CAD -cont coreg and statin -home eliquis on hold due to the anemia H/O dementia -cont supportive care Disposition: overall prognosis is very poor. D/c will depend on clinical course Consider family discussion regarding hospice. History Interval history: 67-year-old male who is a [facility] resident who has been hospitalized multiple times to this hospital in the recent past. He has a history of stroke, dementia, CHF, COPD, diabetes, multiple chronic decubitus ulcers, indwelling Chaudhary catheter and multiple recurrent urinary tract infections, previous prostate abscess, hypertension was brought to the hospital this time with fevers and hypotension: No new issues overnight. Hospitalist Physical - Constitutional Vitals: Temp Pulse Resp BP Pulse Ox 97.8 F 88 20 144/72 100 08/10/18 08:00 08/10/18 08:00 08/10/18 08:00 08/10/18 11:00 08/10/18 08:00 General appearance: Present: no acute distress, other (ill-looking) - EENT Eyes: Present: PERRL, EOM intact ENT: hearing intact, clear oral mucosa, dentition normal - Neck Neck: Present: supple, normal ROM - Respiratory Respiratory effort: normal Respiratory: bilateral: CTA - Cardiovascular Rhythm: regular Heart Sounds: Present: S1 & S2. Absent: gallop, rub - Extremities Extremities: no ischemia, No edema, Full ROM - Abdominal General gastrointestinal: soft, non-tender, non-distended, normal bowel sounds - Integumentary Integumentary: Present: clear, warm, dry - Neurologic Neurologic: CNII-XII intact, moves all extremities Results - Labs CBC & Chem 7: 08/10/18 06:23 08/10/18 06:23 Labs: Laboratory Last Values WBC 13.1 K/mm3 (4.5-11.0) H 08/10/18 06:23 RBC 3.59 M/mm3 (3.65-5.03) L 08/10/18 06:23 Hgb 10.0 gm/dl (11.8-15.2) L 08/10/18 06:23 Hct 31.1 % (35.5-45.6) L 08/10/18 06:23 MCV 87 fl (84-94) 08/10/18 06:23 MCH 28 pg (28-32) 08/10/18 06:23 MCHC 32 % (32-34) 08/10/18 06:23 RDW 17.5 % (13.2-15.2) H 08/10/18 06:23 Plt Count 707 K/mm3 (140-440) H 08/10/18 06:23 Lymph % (Auto) 10.7 % (13.4-35.0) L 08/10/18 06:23 [place] % (Auto) 7.1 % (0.0-7.3) 08/10/18 06:23 Eos % (Auto) 3.1 % (0.0-4.3) 08/10/18 06:23 Baso % (Auto) 1.2 % (0.0-1.8) 08/10/18 06:23 Lymph # 1.4 K/mm3 (1.2-5.4) 08/10/18 06:23 [place] # 0.9 K/mm3 (0.0-0.8) H 08/10/18 06:23 Eos # 0.4 K/mm3 (0.0-0.4) 08/10/18 06:23 Baso # 0.2 K/mm3 (0.0-0.1) H 08/10/18 06:23 Seg Neutrophils % 77.9 % (40.0-70.0) H 08/10/18 06:23 Seg Neutrophils # 10.2 K/mm3 (1.8-7.7) H 08/10/18 06:23 Sodium 140 mmol/L (137-145) 08/10/18 06:23 Potassium 5.5 mmol/L (3.6-5.0) H 08/10/18 06:23 Chloride 110.2 mmol/L (98-107) H 08/10/18 06:23 Carbon Dioxide 18 mmol/L (22-30) L 08/10/18 06:23 Anion Gap 17 mmol/L 08/10/18 06:23 BUN 38 mg/dL (9-20) H 08/10/18 06:23 Creatinine 0.6 mg/dL (0.8-1.5) L 08/10/18 06:23 Estimated GFR > 60 ml/min 08/10/18 06:23 BUN/Creatinine Ratio 63 % 08/10/18 06:23 Glucose 82 mg/dL (75-100) 08/10/18 06:23 POC Glucose 72 (70-105) 08/10/18 05:23 Lactic Acid 1.60 mmol/L (0.7-2.0) 07/30/18 03:26 Calcium 8.7 mg/dL (8.4-10.2) 08/10/18 06:23 Phosphorus 4.10 mg/dL (2.5-4.5) 07/31/18 04:25 Magnesium 2.00 mg/dL (1.7-2.3) 08/06/18 05:36 Total Bilirubin 0.30 mg/dL (0.1-1.2) 08/05/18 03:54 Direct Bilirubin < 0.2 mg/dL (0-0.2) 08/05/18 03:54 AST 21 units/L (5-40) 08/05/18 03:54 ALT 26 units/L (7-56) 08/05/18 03:54 Alkaline Phosphatase 258 units/L (35-129) H 08/05/18 03:54 Troponin T 0.162 ng/mL (0.00-0.029) H* 08/01/18 05:45 Total Protein 6.1 g/dL (6.3-8.2) L 08/05/18 03:54 Albumin 1.5 g/dL (3.9-5) L 08/05/18 03:54 Albumin/Globulin Ratio 0.3 % 08/05/18 03:54 Triglycerides 130 mg/dL (2-149) 08/01/18 05:45 Cholesterol 83 mg/dL (50-199) 08/01/18 05:45 LDL Cholesterol Direct 12 mg/dL (50-130) L 08/01/18 05:45 HDL Cholesterol 17 mg/dL (40-59) L 08/01/18 05:45 Cholesterol/HDL Ratio 4.88 % 08/01/18 05:45 Urine Color [place] (Yellow) 07/29/18 21:33 Urine Turbidity Cloudy (Clear) 07/29/18 21:33 Urine pH 5.0 (5.0-7.0) 07/29/18 21:33 Ur Specific [place] 1.028 (1.003-1.030) 07/29/18 21:33 Urine Protein 100 mg/dl mg/dL (Negative) 07/29/18 21:33 Urine Glucose (UA) Neg mg/dL (Negative) 07/29/18 21:33 Urine Ketones Neg mg/dL (Negative) 07/29/18 21:33 Urine Blood Mod (Negative) 07/29/18 21:33 Urine Nitrite Neg (Negative) 07/29/18 21:33 Urine Bilirubin Neg (Negative) 07/29/18 21:33 Urine Urobilinogen 2.0 mg/dL (<2.0) 07/29/18 21:33 Ur Leukocyte Esterase Lg (Negative) 07/29/18 21:33 Urine WBC (Auto) > 182.0 /HPF (0.0-6.0) H 07/29/18 21:33 Urine RBC (Auto) > 182.0 /HPF (0.0-6.0) 07/29/18 21:33 Urine Bacteria (Auto) 4+ /HPF (Negative) 07/29/18 21:33 Urine WBC Clumps 3+ /HPF 07/29/18 21:33 Urine Mucus Few /HPF 07/29/18 21:33 Urine Eosinophils None seen (None Seen) 07/31/18 Unknown Urine Creatinine 27.3 mg/dL (0.1-20.0) H 07/31/18 Unknown Urine Sodium 99 mmol/L 07/31/18 Unknown Blood Type O POSITIVE 07/30/18 03:26 Antibody Screen Negative 07/30/18 03:26 Crossmatch See Detail 07/30/18 03:26 Active Medications - Current Medications Current Medications: Generic Name Dose Route Start Last Admin Trade Name Freq PRN Reason Stop Dose Admin Acetaminophen 650 mg 07/30/18 02:50 08/08/18 22:03 Tylenol PO 650 mg Q4H PRN Administration Pain MILD(1-3)/Fever >100.5/PRICE Lipase/Protease/Amylase 1 each 07/30/18 13:59 Pancreaze 10,500 Unit FEEDTUBE PRN PRN For Clogged Feeding Tube Ascorbic Acid 500 mg 07/30/18 10:00 08/10/18 10:45 Vitamin C PO 500 mg BID NORA Administration Atorvastatin Calcium 40 mg 08/04/18 22:00 08/09/18 22:19 Lipitor PO 40 mg QHS NORA Administration Carvedilol 3.125 mg 08/04/18 22:00 08/10/18 11:00 Coreg PO 3.125 mg BID NORA Administration Dextrose 50 ml 07/30/18 02:56 D50w (25gm) Syringe IV PRN PRN Hypoglycemia Hydrochlorothiazide 25 mg 08/10/18 10:00 08/10/18 11:00 Hctz PO 25 mg QDAY NORA Administration Tigecycline 50 mg/ Sodium 100 mls @ 100 mls/hr 08/03/18 22:00 08/10/18 10:45 Chloride IV 100 mls/hr Q12HR NORA Administration MEROPENEM/VABORBACTAM 4 gm/ 250 mls @ 90 mls/hr 08/06/18 15:00 08/10/18 05:39 Sodium Chloride IV 90 mls/hr Q8HR NORA Administration Insulin Human Regular 0 units 07/31/18 12:00 08/10/18 05:38 Humulin R SUB-Q Not Given Q6HR [facility] Protocol Levetiracetam 500 mg 07/30/18 06:00 08/10/18 05:38 Keppra PO 500 mg Q12H NORA Administration Ondansetron HCl 4 mg 07/30/18 02:50 Zofran IV Q8H PRN Nausea And Vomiting Simple Syrup 15 ml 07/30/18 13:59 Simple Syrup FEEDTUBE PRN PRN Hypoglycemia Simple Syrup 30 ml 07/30/18 13:59 Simple Syrup FEEDTUBE PRN PRN Hypoglycemia Sodium Bicarbonate 325 mg 07/30/18 13:59 Sodium Bicarbonate FEEDTUBE PRN PRN For Clogged Feeding Tube Sodium Chloride 10 ml 07/30/18 10:00 08/09/18 22:20 Sodium Chloride Flush Syringe 10 Ml IV 10 ml BID NORA Administration Sodium Chloride 10 ml 07/30/18 02:50 Sodium Chloride Flush Syringe 10 Ml IV PRN PRN LINE FLUSH Zinc Sulfate 220 mg 07/30/18 10:00 08/10/18 10:45 Zinc Sulfate PO 220 mg QDAY NORA Administration Nutrition/Malnutrition Assess - Dietary Evaluation Nutrition/Malnutrition Findings: Nutrition Notes Start: 07/30/18 09:58 Freq: Status: Active Protocol: Document 08/07/18 15:33 RD (Rec: 08/07/18 15:37 RD [email or web address]) Co-Sign 08/07/18 15:33 LP Nutrition Notes Initial or Follow up Reassessment Current Diagnosis Coronary Artery Disease, Decubitus(Pressure Ulcer), Diabetes,Hypertension,Heart Failure Other Pertinent Diagnosis Septic shock, UTI, Seizure D/O , anemia Current Diet Promote at 75mL/hr with 50mL flush q4h or per ND Labs/Tests K 5.0 Pertinent Medications Reviewed Height 5 ft 10 in Weight 58.468 kg [place] Body Weight (kg) 75.45 BMI 18.5 Subjective/Other Information TF running at goal rate. Pt had no complaints, everything find with PEG and pt tolerating TF well. Percent of energy/protein needs met: 88%/100% Burn Absent Trauma Absent #1 Nutrition Diagnosis Malnutrition Diagnosis Progress(for reassessment Continues documentation) Is patient on ventilator? No Is Patient Ambulatory and/or Out of Bed No REE-([facility]-confined to bed) 1638.948 Kcal/Kg value to use for calculation 35 Approximate Energy Requirements Using 2046 kcal/Kg Additional Notes protein (1.5-2g/kg): 88-117g fluid: 1mL/kcal or per MD Nutrition Intervention Nutrition Support: Promote at 75mL/hr with 50mL flush q4h or per MD Kcal 1,800 Protein (gm) 113 Carbohydrates (gm) 234 Fluid (mL) 1,510 Fiber (gm) 0 Goal #1 TF tolerance Goal #2 TF to meet 100% energy and pro needs Goal #3 Wt maintenance and/or gain Anticipated Discharge Needs: Continue Promote (or other high protein formula) for adequate protein for wound healing Follow-Up By: 08/13/18 Additional Comments f/u: Viridiana Kebede
--- NOTE | 2018-08-10 13:02 | Progress Note ---
Assessment and Plan 1. Acute kidney injury: Vasomotor / hemodynamic MÓNICA in the setting of hypotension, sepsis and volume depletion. CT abdomen was negative for hydronephrosis. Renal function is better. Monitor renal function. Avoid nephrotoxic agents. Meds dosage based on GFR. 2. 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 Kayexalate ordered. Requested to change tube feeding to low potassium formula. Metabolic acidosis. Edema, improving. Monitor lytes. 3. Sepsis with shock: Off pressors. 4. Anemia: S/p PRBC. 5. Multiple decubitus ulcers: S/p debridement. 6. Shock Liver. Subjective Date of service: 08/10/18 Principal diagnosis: Chest Pain Interval history: Patient was seen and examined at the bedside. Objective - Vital Signs Vital signs: Vital Signs - 12hr 08/10/18 08/10/18 08/10/18 02:00 03:00 04:00 Temperature Pulse Rate 83 89 88 Pulse Rate [ 85 From Monitor] Respiratory 26 H 24 23 Rate Blood Pressure 144/77 145/84 151/80 O2 Sat by Pulse 98 96 97 Oximetry 08/10/18 08/10/18 08/10/18 04:16 05:00 05:32 Temperature 99.4 F 72 F L Pulse Rate 88 Pulse Rate [ From Monitor] Respiratory 20 Rate Blood Pressure 148/77 O2 Sat by Pulse 97 Oximetry 08/10/18 08/10/18 08/10/18 06:01 07:00 08:00 Temperature 97.8 F Pulse Rate 86 84 Pulse Rate [ 88 From Monitor] Respiratory 22 19 Rate Blood Pressure 166/91 140/75 158/81 O2 Sat by Pulse 96 97 98 Oximetry 08/10/18 08/10/18 08/10/18 09:00 10:00 11:00 Temperature Pulse Rate 82 89 86 Pulse Rate [ From Monitor] Respiratory 17 20 19 Rate Blood Pressure 159/74 146/76 144/72 O2 Sat by Pulse 100 98 98 Oximetry 08/10/18 12:00 Temperature 97.4 F L Pulse Rate 92 H Pulse Rate [ From Monitor] Respiratory 24 Rate Blood Pressure 133/70 O2 Sat by Pulse 95 Oximetry - General Appearance General appearance: well-developed, appears stated age, other (not in distress) EENT: ATNC, PERRL Neck: other (Trachea ) Respiratory: Present: Clear to Ascultation Cardiology: regular, S1S2, no murmurs Gastrointestinal: normoactive bowel sounds, no tenderness, no distended, other (PEG tube noted) Integumentary: ulcer, decubiti Neurologic: other (answers his name, not following command) Musculoskeletal: other (trace LE edema noted) - Lab 08/11/18 05:50 08/11/18 05:50 Most recent lab results Calcium 8.7 mg/dL (8.4-10.2) 08/10/18 06:23 Phosphorus 4.10 mg/dL (2.5-4.5) 07/31/18 04:25 Magnesium 2.00 mg/dL (1.7-2.3) 08/06/18 05:36 Urine Creatinine 27.3 mg/dL (0.1-20.0) H 07/31/18 Unknown Urine Sodium 99 mmol/L 07/31/18 Unknown Medications & Allergies - Medications Allergies/Adverse Reactions: Allergies tramadol Allergy (Verified 07/29/18 18:39) Unknown Home Medications: Home Medications Medication Instructions Recorded Confirmed Last Taken Type amLODIPine [Norvasc] 10 mg NGTUBE DAILY 06/02/16 07/30/18 Unknown History Multivit-Min/Iron Fum/Folic AC 1 each PO DAILY 03/24/18 07/30/18 Unknown History [Onwnx-Noyazrm-Evrldfsx Tablet] Carvedilol [Coreg] 6.25 mg PO Q12H 06/13/18 07/30/18 Unknown History Acetaminophen 650 mg NGTUBE Q6H PRN 07/30/18 07/30/18 Unknown History Apixaban [Eliquis] 2.5 mg PO Q12H 07/30/18 07/30/18 Unknown History AtorvaSTATin [Lipitor] 40 mg NGTUBE QHS 07/30/18 07/30/18 Unknown History Dutasteride 0.5 mg NGTUBE QAM 07/30/18 07/30/18 Unknown History Furosemide [Lasix TAB] 40 mg PO QDAY 07/30/18 07/30/18 Unknown History Ipratropium/Albuterol Sulfate 1 ampul IH BID 07/30/18 07/30/18 Unknown History [DUONEB *Not for PRN Use*] Lisinopril [Zestril TAB] 40 mg PO QDAY 07/30/18 07/30/18 Unknown History Oxycodone HCl/Acetaminophen 1 each PO Q8HR PRN 07/30/18 07/30/18 Unknown History [Percocet 7.5/325 mg] Tamsulosin [Flomax] 0.4 mg PO QDAY 07/30/18 07/30/18 Unknown History Vit C/Ascorbate Calcium,Sodium 500 mg NGTUBE BID 07/30/18 07/30/18 Unknown History [Vitamin C 500 mg/15 ml Liquid] Zinc Sulfate 220 mg NGTUBE QDAY 07/30/18 07/30/18 Unknown History diphenhydrAMINE [Benadryl CAP] 25 mg NGTUBE Q6H PRN 07/30/18 07/30/18 Unknown History levETIRAcetam [Keppra INJ] 500 mg PO Q12H 07/30/18 07/30/18 Unknown History Active Medications: Generic Name Dose Route Start Last Admin Trade Name Freq PRN Reason Stop Dose Admin Acetaminophen 650 mg 07/30/18 02:50 08/08/18 22:03 Tylenol PO 650 mg Q4H PRN Administration Pain MILD(1-3)/Fever >100.5/PRICE Lipase/Protease/Amylase 1 each 07/30/18 13:59 Pancreaze 10,500 Unit FEEDTUBE PRN PRN For Clogged Feeding Tube Ascorbic Acid 500 mg 07/30/18 10:00 08/10/18 10:45 Vitamin C PO 500 mg BID NORA Administration Atorvastatin Calcium 40 mg 08/04/18 22:00 08/09/18 22:19 Lipitor PO 40 mg QHS NORA Administration Carvedilol 3.125 mg 08/04/18 22:00 08/10/18 11:00 Coreg PO 3.125 mg BID NORA Administration Dextrose 50 ml 07/30/18 02:56 D50w (25gm) Syringe IV PRN PRN Hypoglycemia Hydrochlorothiazide 25 mg 08/10/18 10:00 08/10/18 11:00 Hctz PO 25 mg QDAY NORA Administration Tigecycline 50 mg/ Sodium 100 mls @ 100 mls/hr 08/03/18 22:00 08/10/18 10:45 Chloride IV 100 mls/hr Q12HR NORA Administration MEROPENEM/VABORBACTAM 4 gm/ 250 mls @ 90 mls/hr 08/06/18 15:00 08/10/18 05:39 Sodium Chloride IV 90 mls/hr Q8HR NORA Administration Insulin Human Regular 0 units 07/31/18 12:00 08/10/18 05:38 Humulin R SUB-Q Not Given Q6HR [facility] Protocol Levetiracetam 500 mg 07/30/18 06:00 08/10/18 05:38 Keppra PO 500 mg Q12H NORA Administration Ondansetron HCl 4 mg 07/30/18 02:50 Zofran IV Q8H PRN Nausea And Vomiting Simple Syrup 15 ml 07/30/18 13:59 Simple Syrup FEEDTUBE PRN PRN Hypoglycemia Simple Syrup 30 ml 07/30/18 13:59 Simple Syrup FEEDTUBE PRN PRN Hypoglycemia Sodium Bicarbonate 325 mg 07/30/18 13:59 Sodium Bicarbonate FEEDTUBE PRN PRN For Clogged Feeding Tube Sodium Chloride 10 ml 07/30/18 10:00 08/09/18 22:20 Sodium Chloride Flush Syringe 10 Ml IV 10 ml BID NORA Administration Sodium Chloride 10 ml 07/30/18 02:50 Sodium Chloride Flush Syringe 10 Ml IV PRN PRN LINE FLUSH Zinc Sulfate 220 mg 07/30/18 10:00 08/10/18 10:45 Zinc Sulfate PO 220 mg QDAY NORA Administration
[2018-08-10] MEDS: SODIUM CHLORIDE FLUSH SYRINGE 10 ML IV SCH ×2 (16:17→23:05)
[2018-08-11] MEDS: KEPPRA PO SCH ×2 (05:35→18:21)
[2018-08-11] MEDS: VABOMERE 4 GM in NACL 0.9% 250ML 250 ML IV SCH ×2 (05:37→13:56)
[2018-08-11] MEDS: HumuLIN R SUB-Q SCH ×4 (05:47→18:15)
[2018-08-11 06:23] LABS: Basophils # (Auto) 0.1 K/mm3 (0.0-0.1); Basophils % (Auto) 0.9 % (0.0-1.8); Eosinophils # (Auto) 0.4 K/mm3 (0.0-0.4); Eosinophils % (Auto) 3.1 % (0.0-4.3); Hematocrit 28.7 % (35.5-45.6); Hemoglobin 9.6 gm/dl (11.8-15.2); Lymphocytes # (Auto) 1.4 K/mm3 (1.2-5.4); Lymphocytes % (Auto) 10.4 % (13.4-35.0); Mean Corpuscular HGB Conc 33 % (32-34); Mean Corpuscular Volume 85 fl (84-94); Monocytes # (Auto) 0.9 K/mm3 (0.0-0.8); Monocytes % (Auto) 6.7 % (0.0-7.3); Platelet Count 688 K/mm3 (140-440); Red Blood Count 3.36 M/mm3 (3.65-5.03); Red Cell Distribution Width 17.2 % (13.2-15.2)
[2018-08-11 06:36] LABS: BUN/Creatinine Ratio 63; Blood Urea Nitrogen 38 mg/dL (9-20); Calcium 8.5 mg/dL (8.4-10.2); Hemolysis Index 4
[2018-08-11] MEDS: TYGACIL IV SCH ×2 (10:37→22:43)
[2018-08-11] MEDS: NACL 0.9% IV SCH ×2 (10:37→22:43)
[2018-08-11] MEDS: COREG PO SCH ×2 (10:38→22:43)
[2018-08-11] MEDS: HCTZ PO SCH (10:38)
[2018-08-11] MEDS: ZINC SULFATE PO SCH (10:39)
[2018-08-11] MEDS: SODIUM CHLORIDE FLUSH SYRINGE 10 ML IV SCH ×2 (10:39→22:45)
[2018-08-11] MEDS: VITAMIN C PO SCH ×2 (10:39→22:44)
--- NOTE | 2018-08-11 10:45 | Progress Note ---
Assessment and Plan Assessment and plan: Severe sepsis -probably 2/2 multiple infected decubitus ulcers/UTI. -On IV antibiotics, off pressor Escherichia coli bacteremia. Continue antibiotics per ID UTI: -Chaudhary catheter changed on admission -Continue abx. -Urine culture contaminated. Multiple decubitus ulcers -Continue wound care. -Prognosis is very poor. Transaminitis -probably from shock liver, improved Acute kidney injury -probably vasomotor nephropathy -resolved -Avoid nephrotoxic agents. Hypernatremia -probably secondary to dehydration -Resolved Metabolic acidosis. -improving, will monitor Acute on chronic anemia -S/p 3u PRBC -H/H stable, will monitor Hyperkalemia -Kayexalate today, recheck BMP later today Severe protein calorie malnutrition -On tube feeding -Dietitian following History of HTN -BP stable Seizure disorder -Continue Keppra -Seizure precautions H/O CAD -cont coreg and statin -home eliquis on hold due to the anemia H/O dementia -cont supportive care Disposition: overall prognosis is very poor. D/c will depend on clinical course Consider family discussion regarding hospice. History Interval history: 67-year-old male who is a [facility] who has been hospitalized multiple times to this hospital in the recent past. He has a history of stroke, dementia, CHF, COPD, diabetes, multiple chronic decubitus ulcers, indwelling Chaudhary catheter and multiple recurrent urinary tract infections, previous prostate abscess, hypertension was brought to the hospital this time with fevers and hypotension: No new issues overnight. Hospitalist Physical - Constitutional Vitals: Temp Pulse Resp BP Pulse Ox 99.3 F 95 H 21 145/74 95 08/11/18 08:00 08/11/18 10:38 08/11/18 09:00 08/11/18 10:38 08/11/18 09:00 General appearance: Present: no acute distress, other (ill-looking) - EENT Eyes: Present: PERRL, EOM intact ENT: hearing intact, clear oral mucosa, dentition normal - Neck Neck: Present: supple, normal ROM - Respiratory Respiratory effort: normal Respiratory: bilateral: CTA - Cardiovascular Rhythm: regular Heart Sounds: Present: S1 & S2. Absent: gallop, rub - Extremities Extremities: no ischemia, No edema, Full ROM - Abdominal General gastrointestinal: soft, non-tender, non-distended, normal bowel sounds - Integumentary Integumentary: Present: clear, warm, dry - Neurologic Neurologic: CNII-XII intact, moves all extremities Results - Labs CBC & Chem 7: 08/11/18 05:50 08/11/18 05:50 Labs: Laboratory Last Values WBC 13.2 K/mm3 (4.5-11.0) H 08/11/18 05:50 RBC 3.36 M/mm3 (3.65-5.03) L 08/11/18 05:50 Hgb 9.6 gm/dl (11.8-15.2) L 08/11/18 05:50 Hct 28.7 % (35.5-45.6) L 08/11/18 05:50 MCV 85 fl (84-94) 08/11/18 05:50 MCH 29 pg (28-32) 08/11/18 05:50 MCHC 33 % (32-34) 08/11/18 05:50 RDW 17.2 % (13.2-15.2) H 08/11/18 05:50 Plt Count 688 K/mm3 (140-440) H 08/11/18 05:50 Lymph % (Auto) 10.4 % (13.4-35.0) L 08/11/18 05:50 [place] % (Auto) 6.7 % (0.0-7.3) 08/11/18 05:50 Eos % (Auto) 3.1 % (0.0-4.3) 08/11/18 05:50 Baso % (Auto) 0.9 % (0.0-1.8) 08/11/18 05:50 Lymph # 1.4 K/mm3 (1.2-5.4) 08/11/18 05:50 [place] # 0.9 K/mm3 (0.0-0.8) H 08/11/18 05:50 Eos # 0.4 K/mm3 (0.0-0.4) 08/11/18 05:50 Baso # 0.1 K/mm3 (0.0-0.1) 08/11/18 05:50 Seg Neutrophils % 78.9 % (40.0-70.0) H 08/11/18 05:50 Seg Neutrophils # 10.4 K/mm3 (1.8-7.7) H 08/11/18 05:50 Sodium 143 mmol/L (137-145) 08/11/18 05:50 Potassium 4.7 mmol/L (3.6-5.0) 08/11/18 05:50 Chloride 112.3 mmol/L (98-107) H 08/11/18 05:50 Carbon Dioxide 20 mmol/L (22-30) L 08/11/18 05:50 Anion Gap 15 mmol/L 08/11/18 05:50 BUN 38 mg/dL (9-20) H 08/11/18 05:50 Creatinine 0.6 mg/dL (0.8-1.5) L 08/11/18 05:50 Estimated GFR > 60 ml/min 08/11/18 05:50 BUN/Creatinine Ratio 63 % 08/11/18 05:50 Glucose 97 mg/dL (75-100) 08/11/18 05:50 POC Glucose 101 (70-105) 08/11/18 06:37 Lactic Acid 1.60 mmol/L (0.7-2.0) 07/30/18 03:26 Calcium 8.5 mg/dL (8.4-10.2) 08/11/18 05:50 Phosphorus 4.10 mg/dL (2.5-4.5) 07/31/18 04:25 Magnesium 2.00 mg/dL (1.7-2.3) 08/06/18 05:36 Total Bilirubin 0.30 mg/dL (0.1-1.2) 08/05/18 03:54 Direct Bilirubin < 0.2 mg/dL (0-0.2) 08/05/18 03:54 AST 21 units/L (5-40) 08/05/18 03:54 ALT 26 units/L (7-56) 08/05/18 03:54 Alkaline Phosphatase 258 units/L (35-129) H 08/05/18 03:54 Troponin T 0.162 ng/mL (0.00-0.029) H* 08/01/18 05:45 Total Protein 6.1 g/dL (6.3-8.2) L 08/05/18 03:54 Albumin 1.5 g/dL (3.9-5) L 08/05/18 03:54 Albumin/Globulin Ratio 0.3 % 08/05/18 03:54 Triglycerides 130 mg/dL (2-149) 08/01/18 05:45 Cholesterol 83 mg/dL (50-199) 08/01/18 05:45 LDL Cholesterol Direct 12 mg/dL (50-130) L 08/01/18 05:45 HDL Cholesterol 17 mg/dL (40-59) L 08/01/18 05:45 Cholesterol/HDL Ratio 4.88 % 08/01/18 05:45 Urine Color [place] (Yellow) 07/29/18 21:33 Urine Turbidity Cloudy (Clear) 07/29/18 21:33 Urine pH 5.0 (5.0-7.0) 07/29/18 21:33 Ur Specific [place] 1.028 (1.003-1.030) 07/29/18 21:33 Urine Protein 100 mg/dl mg/dL (Negative) 07/29/18 21:33 Urine Glucose (UA) Neg mg/dL (Negative) 07/29/18 21:33 Urine Ketones Neg mg/dL (Negative) 07/29/18 21:33 Urine Blood Mod (Negative) 07/29/18 21:33 Urine Nitrite Neg (Negative) 07/29/18 21:33 Urine Bilirubin Neg (Negative) 07/29/18 21:33 Urine Urobilinogen 2.0 mg/dL (<2.0) 07/29/18 21:33 Ur Leukocyte Esterase Lg (Negative) 07/29/18 21:33 Urine WBC (Auto) > 182.0 /HPF (0.0-6.0) H 07/29/18 21:33 Urine RBC (Auto) > 182.0 /HPF (0.0-6.0) 07/29/18 21:33 Urine Bacteria (Auto) 4+ /HPF (Negative) 07/29/18 21:33 Urine WBC Clumps 3+ /HPF 07/29/18 21:33 Urine Mucus Few /HPF 07/29/18 21:33 Urine Eosinophils None seen (None Seen) 07/31/18 Unknown Urine Creatinine 27.3 mg/dL (0.1-20.0) H 07/31/18 Unknown Urine Sodium 99 mmol/L 07/31/18 Unknown Blood Type O POSITIVE 07/30/18 03:26 Antibody Screen Negative 07/30/18 03:26 Crossmatch See Detail 07/30/18 03:26 Active Medications - Current Medications Current Medications: Generic Name Dose Route Start Last Admin Trade Name Freq PRN Reason Stop Dose Admin Acetaminophen 650 mg 07/30/18 02:50 08/08/18 22:03 Tylenol PO 650 mg Q4H PRN Administration Pain MILD(1-3)/Fever >100.5/PRICE Lipase/Protease/Amylase 1 each 07/30/18 13:59 Pancreaze 10,500 Unit FEEDTUBE PRN PRN For Clogged Feeding Tube Ascorbic Acid 500 mg 07/30/18 10:00 08/11/18 10:39 Vitamin C PO 500 mg BID NORA Administration Atorvastatin Calcium 40 mg 08/04/18 22:00 08/10/18 23:11 Lipitor PO 40 mg QHS NORA Administration Carvedilol 3.125 mg 08/04/18 22:00 08/11/18 10:38 Coreg PO 3.125 mg BID NORA Administration Dextrose 50 ml 07/30/18 02:56 D50w (25gm) Syringe IV PRN PRN Hypoglycemia Hydrochlorothiazide 25 mg 08/10/18 10:00 08/11/18 10:38 Hctz PO 25 mg QDAY NORA Administration Tigecycline 50 mg/ Sodium 100 mls @ 100 mls/hr 08/03/18 22:00 08/11/18 10:37 Chloride IV 100 mls/hr Q12HR NORA Administration MEROPENEM/VABORBACTAM 4 gm/ 250 mls @ 90 mls/hr 08/06/18 15:00 08/11/18 05:37 Sodium Chloride IV 90 mls/hr Q8HR NORA Administration Insulin Human Regular 0 units 07/31/18 12:00 08/11/18 06:52 Humulin R SUB-Q Not Given Q6HR NORA Protocol Levetiracetam 500 mg 07/30/18 06:00 08/11/18 05:35 Keppra PO 500 mg Q12H NORA Administration Ondansetron HCl 4 mg 07/30/18 02:50 Zofran IV Q8H PRN Nausea And Vomiting Simple Syrup 15 ml 07/30/18 13:59 Simple Syrup FEEDTUBE PRN PRN Hypoglycemia Simple Syrup 30 ml 07/30/18 13:59 Simple Syrup FEEDTUBE PRN PRN Hypoglycemia Sodium Bicarbonate 325 mg 07/30/18 13:59 Sodium Bicarbonate FEEDTUBE PRN PRN For Clogged Feeding Tube Sodium Chloride 10 ml 07/30/18 10:00 08/11/18 10:39 Sodium Chloride Flush Syringe 10 Ml IV 10 ml BID NORA Administration Sodium Chloride 10 ml 07/30/18 02:50 Sodium Chloride Flush Syringe 10 Ml IV PRN PRN LINE FLUSH Zinc Sulfate 220 mg 07/30/18 10:00 08/11/18 10:39 Zinc Sulfate PO 220 mg QDAY NORA Administration Nutrition/Malnutrition Assess - Dietary Evaluation Nutrition/Malnutrition Findings: Nutrition Notes Start: 07/30/18 09:58 Freq: Status: Active Protocol: Document 08/11/18 10:03 LP (Rec: 08/11/18 10:05 LP [id number]) Nutrition Notes Need for Assessment generated from: MD Order Initial or Follow up Reassessment Current Diagnosis Coronary Artery Disease, Decubitus(Pressure Ulcer), Diabetes,Hypertension,Heart Failure Other Pertinent Diagnosis Septic shock, UTI, Seizure D/O , anemia Current Diet Promote at 75mL/hr with 50mL flush q4h or per ND Labs/Tests K 5.5 Pertinent Medications Kionex Height 5 ft 10 in Weight 58.48 kg [place] Body Weight (kg) 75.45 BMI 18.5 Subjective/Other Information Consult for TF. Pt TF needs to be changed due to renal function. Burn Absent Trauma Absent #1 Nutrition Diagnosis Malnutrition Diagnosis Progress(for reassessment Continues documentation) Is patient on ventilator? No Is Patient Ambulatory and/or Out of Bed No REE-([facility]-confined to bed) 1639.092 Kcal/Kg value to use for calculation 35 Approximate Energy Requirements Using 2047 kcal/Kg Additional Notes protein (1.5-2g/kg): 88-117g fluid: 1mL/kcal or per MD Nutrition Intervention Change Diet Order: TF Nutrition Support: Change to [place] at 50ml/hr Flush with 220ml q4h Kcal 2,160 Protein (gm) 97 Fluid (mL) 872 Goal #1 TF tolerance Goal #2 TF to meet 100% energy and pro needs Goal #3 Wt maintenance and/or gain Goal #4 Wound healing Anticipated Discharge Needs: TF Follow-Up By: 08/13/18 Additional Comments Follow for TF change and tolerance, renal labs
--- NOTE | 2018-08-11 12:39 | Progress Note ---
Assessment and Plan 1. Acute kidney injury: Vasomotor / hemodynamic MÓNICA in the setting of hypotension, sepsis and volume depletion. CT abdomen was negative for hydronephrosis. Renal function is better. Monitor renal function. Avoid nephrotoxic agents. Meds dosage based on GFR. 2. 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 Potassium level is better. Low potassium formula. Metabolic acidosis. Edema, improving. Monitor lytes. 3. Sepsis with shock: Off pressors. 4. Anemia: S/p PRBC. 5. Multiple decubitus ulcers: S/p debridement. Subjective Date of service: 08/11/18 Principal diagnosis: Chest Pain Interval history: Patient was seen and examined at the bedside. Objective - Vital Signs Vital signs: Vital Signs - 12hr 08/11/18 08/11/18 08/11/18 01:00 02:00 03:00 Temperature Pulse Rate 83 82 86 Pulse Rate [ From Monitor] Respiratory 21 21 22 Rate Blood Pressure 134/64 142/69 137/70 O2 Sat by Pulse 98 98 96 Oximetry 08/11/18 08/11/18 08/11/18 04:00 05:00 06:00 Temperature 98.1 F Pulse Rate 87 92 H 84 Pulse Rate [ 89 From Monitor] Respiratory 24 28 H 21 Rate Blood Pressure 134/68 136/83 146/78 O2 Sat by Pulse 94 95 99 Oximetry 08/11/18 08/11/18 08/11/18 07:00 08:00 09:00 Temperature 99.3 F 99.3 F Pulse Rate 86 69 92 H Pulse Rate [ 90 From Monitor] Respiratory 20 23 21 Rate Blood Pressure 152/77 152/77 133/71 O2 Sat by Pulse 97 97 95 Oximetry 08/11/18 08/11/18 08/11/18 10:00 10:38 11:00 Temperature Pulse Rate 93 H 95 H 96 H Pulse Rate [ From Monitor] Respiratory 23 24 Rate Blood Pressure 145/74 145/74 153/87 O2 Sat by Pulse 97 96 Oximetry 08/11/18 12:00 Temperature 98 F Pulse Rate 89 Pulse Rate [ From Monitor] Respiratory Rate Blood Pressure O2 Sat by Pulse Oximetry - General Appearance General appearance: well-developed, appears stated age, other (not in distress) EENT: ATNC, PERRL Neck: other (Trachea midline) Respiratory: Present: Clear to Ascultation Cardiology: regular, S1S2, no murmurs Gastrointestinal: normoactive bowel sounds, no tenderness, no distended, other (PEG tube and Chaudhary catheter noted) Integumentary: ulcer, decubiti, other (wound vac noted) Neurologic: other (able to tell his name, not following command) Musculoskeletal: other (trace dependent edema noted, multiple contractures noted) - Lab 08/11/18 05:50 08/11/18 05:50 Most recent lab results Calcium 8.5 mg/dL (8.4-10.2) 08/11/18 05:50 Phosphorus 4.10 mg/dL (2.5-4.5) 07/31/18 04:25 Magnesium 2.00 mg/dL (1.7-2.3) 08/06/18 05:36 Urine Creatinine 27.3 mg/dL (0.1-20.0) H 07/31/18 Unknown Urine Sodium 99 mmol/L 07/31/18 Unknown Medications & Allergies - Medications Allergies/Adverse Reactions: Allergies tramadol Allergy (Verified 07/29/18 18:39) Unknown Home Medications: Home Medications Medication Instructions Recorded Confirmed Last Taken Type amLODIPine [Norvasc] 10 mg NGTUBE DAILY 06/02/16 07/30/18 Unknown History Multivit-Min/Iron Fum/Folic AC 1 each PO DAILY 03/24/18 07/30/18 Unknown History [Kuacc-Xakfiig-Vloagrzl Tablet] Carvedilol [Coreg] 6.25 mg PO Q12H 06/13/18 07/30/18 Unknown History Acetaminophen 650 mg NGTUBE Q6H PRN 07/30/18 07/30/18 Unknown History Apixaban [Eliquis] 2.5 mg PO Q12H 07/30/18 07/30/18 Unknown History AtorvaSTATin [Lipitor] 40 mg NGTUBE QHS 07/30/18 07/30/18 Unknown History Dutasteride 0.5 mg NGTUBE QAM 07/30/18 07/30/18 Unknown History Furosemide [Lasix TAB] 40 mg PO QDAY 07/30/18 07/30/18 Unknown History Ipratropium/Albuterol Sulfate 1 ampul IH BID 07/30/18 07/30/18 Unknown History [DUONEB *Not for PRN Use*] Lisinopril [Zestril TAB] 40 mg PO QDAY 07/30/18 07/30/18 Unknown History Oxycodone HCl/Acetaminophen 1 each PO Q8HR PRN 07/30/18 07/30/18 Unknown History [Percocet 7.5/325 mg] Tamsulosin [Flomax] 0.4 mg PO QDAY 07/30/18 07/30/18 Unknown History Vit C/Ascorbate Calcium,Sodium 500 mg NGTUBE BID 07/30/18 07/30/18 Unknown History [Vitamin C 500 mg/15 ml Liquid] Zinc Sulfate 220 mg NGTUBE QDAY 07/30/18 07/30/18 Unknown History diphenhydrAMINE [Benadryl CAP] 25 mg NGTUBE Q6H PRN 07/30/18 07/30/18 Unknown History levETIRAcetam [Keppra INJ] 500 mg PO Q12H 07/30/18 07/30/18 Unknown History Active Medications: Generic Name Dose Route Start Last Admin Trade Name Freq PRN Reason Stop Dose Admin Acetaminophen 650 mg 07/30/18 02:50 08/08/18 22:03 Tylenol PO 650 mg Q4H PRN Administration Pain MILD(1-3)/Fever >100.5/PRICE Lipase/Protease/Amylase 1 each 07/30/18 13:59 Pancreaze 10,500 Unit FEEDTUBE PRN PRN For Clogged Feeding Tube Ascorbic Acid 500 mg 07/30/18 10:00 08/11/18 10:39 Vitamin C PO 500 mg BID NORA Administration Atorvastatin Calcium 40 mg 08/04/18 22:00 08/10/18 23:11 Lipitor PO 40 mg QHS NORA Administration Carvedilol 3.125 mg 08/04/18 22:00 08/11/18 10:38 Coreg PO 3.125 mg BID NORA Administration Dextrose 50 ml 07/30/18 02:56 D50w (25gm) Syringe IV PRN PRN Hypoglycemia Hydrochlorothiazide 25 mg 08/10/18 10:00 08/11/18 10:38 Hctz PO 25 mg QDAY NORA Administration Tigecycline 50 mg/ Sodium 100 mls @ 100 mls/hr 08/03/18 22:00 08/11/18 10:37 Chloride IV 100 mls/hr Q12HR NORA Administration MEROPENEM/VABORBACTAM 4 gm/ 250 mls @ 90 mls/hr 08/06/18 15:00 08/11/18 05:37 Sodium Chloride IV 90 mls/hr Q8HR NORA Administration Insulin Human Regular 0 units 07/31/18 12:00 08/11/18 06:52 Humulin R SUB-Q Not Given Q6HR [facility] Protocol Levetiracetam 500 mg 07/30/18 06:00 08/11/18 05:35 Keppra PO 500 mg Q12H NORA Administration Ondansetron HCl 4 mg 07/30/18 02:50 Zofran IV Q8H PRN Nausea And Vomiting Simple Syrup 15 ml 07/30/18 13:59 Simple Syrup FEEDTUBE PRN PRN Hypoglycemia Simple Syrup 30 ml 07/30/18 13:59 Simple Syrup FEEDTUBE PRN PRN Hypoglycemia Sodium Bicarbonate 325 mg 07/30/18 13:59 Sodium Bicarbonate FEEDTUBE PRN PRN For Clogged Feeding Tube Sodium Chloride 10 ml 07/30/18 10:00 08/11/18 10:39 Sodium Chloride Flush Syringe 10 Ml IV 10 ml BID NORA Administration Sodium Chloride 10 ml 07/30/18 02:50 Sodium Chloride Flush Syringe 10 Ml IV PRN PRN LINE FLUSH Zinc Sulfate 220 mg 07/30/18 10:00 08/11/18 10:39 Zinc Sulfate PO 220 mg QDAY NORA Administration
--- NOTE | 2018-08-11 13:54 | Progress Note ---
Assessment and Plan 1. Sepsis 2. Acute renal failure 3. Multiple decubitus ulcers 4. Normal left ventricular ejection fraction 50-55%. Plan. Conservative supportive cardiac management. Subjective Date of service: 08/11/18 Principal diagnosis: Chest Pain Interval history: No cardiacs symptoms. Objective Vital Signs Temp Pulse Pulse Resp BP Pulse Ox 08/11/18 12:00 98 F 89 08/11/18 11:00 96 H 24 153/87 96 08/11/18 10:38 95 H 145/74 08/11/18 10:00 93 H 23 145/74 97 08/11/18 09:00 92 H 21 133/71 95 08/11/18 08:00 99.3 F 69 90 23 152/77 97 08/11/18 07:00 99.3 F 86 20 152/77 97 08/11/18 06:00 84 21 146/78 99 08/11/18 05:00 92 H 28 H 136/83 95 08/11/18 04:00 98.1 F 87 89 24 134/68 94 08/11/18 03:00 86 22 137/70 96 08/11/18 02:00 82 21 142/69 98 08/11/18 01:00 83 21 134/64 98 08/11/18 00:00 100.0 F H 100 H 83 34 H 146/87 95 08/10/18 23:10 90 149/78 08/10/18 23:00 88 19 149/78 96 08/10/18 22:00 88 24 138/76 96 08/10/18 21:05 98 08/10/18 21:00 84 21 147/76 98 08/10/18 20:47 82 22 148/80 99 08/10/18 20:00 99.0 F 89 87 23 148/80 97 08/10/18 19:00 85 22 152/78 99 08/10/18 18:00 88 21 145/77 97 08/10/18 17:00 90 24 148/78 95 08/10/18 16:00 97.9 F 88 90 23 150/81 97 08/10/18 15:00 83 21 145/75 97 08/10/18 14:00 87 33 H 137/68 96 - Physical Examination General: Cachectic HEENT: Positive: PERRL, Normocephaly Neck: Positive: trachea midline. Negative: JVD/HJR Cardiac: Positive: Regular Rate, Laterally Displaced Lungs: Positive: clear to auscultation, No Wheeze, Rales, Rhonchi Abdomen: Positive: Unremarkable, Active Bowel Sounds Skin: Positive: Ulceration, Other (multiple ulcers) Extremities: Absent: edema - Labs and Meds CBC 08/11/18 Range/Units 05:50 WBC 13.2 H (4.5-11.0) K/mm3 RBC 3.36 L (3.65-5.03) M/mm3 Hgb 9.6 L (11.8-15.2) gm/dl Hct 28.7 L (35.5-45.6) % Plt Count 688 H (140-440) K/mm3 Lymph # 1.4 (1.2-5.4) K/mm3 [place] # 0.9 H (0.0-0.8) K/mm3 Eos # 0.4 (0.0-0.4) K/mm3 Baso # 0.1 (0.0-0.1) K/mm3 Comprehensive Metabolic Panel 08/11/18 Range/Units 05:50 Sodium 143 (137-145) mmol/L Potassium 4.7 (3.6-5.0) mmol/L Chloride 112.3 H (98-107) mmol/L Carbon Dioxide 20 L (22-30) mmol/L BUN 38 H (9-20) mg/dL Creatinine 0.6 L (0.8-1.5) mg/dL Glucose 97 (75-100) mg/dL Calcium 8.5 (8.4-10.2) mg/dL
[2018-08-12] MEDS: KEPPRA PO SCH ×2 (05:05→20:08)
[2018-08-12] MEDS: HumuLIN R SUB-Q SCH ×3 (05:05→20:03)
[2018-08-12] MEDS: VABOMERE 4 GM in NACL 0.9% 250ML 250 ML IV SCH ×2 (05:10→05:11)
[2018-08-12 06:25] LABS: Basophils # (Auto) 0.1 K/mm3 (0.0-0.1); Basophils % (Auto) 1.1 % (0.0-1.8); Eosinophils # (Auto) 0.3 K/mm3 (0.0-0.4); Hematocrit 26.7 % (35.5-45.6); Hemoglobin 9.2 gm/dl (11.8-15.2); Lymphocytes # (Auto) 1.3 K/mm3 (1.2-5.4); Lymphocytes % (Auto) 11.1 % (13.4-35.0); Mean Corpuscular HGB Conc 34 % (32-34); Mean Corpuscular Volume 84 fl (84-94); Monocytes # (Auto) 0.9 K/mm3 (0.0-0.8); Platelet Count 598 K/mm3 (140-440); Red Blood Count 3.16 M/mm3 (3.65-5.03); Red Cell Distribution Width 17.7 % (13.2-15.2)
[2018-08-12 06:52] LABS: BUN/Creatinine Ratio 70; Blood Urea Nitrogen 35 mg/dL (9-20); Calcium 8.4 mg/dL (8.4-10.2); Hemolysis Index 28
--- NOTE | 2018-08-12 09:32 | Progress Note ---
Assessment and Plan 1. Acute kidney injury: Vasomotor / hemodynamic MÓNICA in the setting of hypotension, sepsis and volume depletion. CT abdomen was negative for hydronephrosis. Renal function is better. Monitor renal function. Avoid nephrotoxic agents. Meds dosage based on GFR. 2. 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 Potassium level is better. Low potassium formula. Metabolic acidosis. Edema, improving. Monitor lytes. 3. Sepsis with shock: Off pressors. 4. Anemia: S/p PRBC. 5. Multiple decubitus ulcers: S/p debridement. Subjective Date of service: 08/12/18 Principal diagnosis: Chest Pain Interval history: Patient was seen and examined at the bedside. Objective - Vital Signs Vital signs: Vital Signs - 12hr 08/11/18 08/11/18 08/11/18 21:45 22:00 22:43 Temperature Pulse Rate 92 H 99 H Respiratory 21 Rate Blood Pressure 142/81 142/81 O2 Sat by Pulse 98 99 Oximetry 08/11/18 08/12/18 08/12/18 23:00 00:00 01:00 Temperature 99.9 F H Pulse Rate 102 H 89 82 Respiratory 33 H 24 21 Rate Blood Pressure 155/90 154/77 149/73 O2 Sat by Pulse 97 Oximetry 08/12/18 08/12/18 08/12/18 02:00 03:00 04:00 Temperature 100.0 F H Pulse Rate 84 84 86 Respiratory 23 25 H 25 H Rate Blood Pressure 145/68 144/73 146/73 O2 Sat by Pulse Oximetry 08/12/18 08/12/18 08/12/18 05:00 06:00 07:00 Temperature Pulse Rate 88 86 83 Respiratory 22 25 H 22 Rate Blood Pressure 146/70 141/74 145/75 O2 Sat by Pulse 96 Oximetry 08/12/18 08/12/18 08:00 09:00 Temperature Pulse Rate 86 88 Respiratory 20 24 Rate Blood Pressure 137/74 143/77 O2 Sat by Pulse 99 98 Oximetry - General Appearance General appearance: well-developed, appears stated age, other (not in distress) EENT: ATNC, PERRL Respiratory: Present: Clear to Ascultation Cardiology: regular, S1S2, no murmurs Gastrointestinal: normoactive bowel sounds, no tenderness, other (PEG tube noted, bright catheter noted) Integumentary: ulcer, decubiti, other (dressing noted) Neurologic: confused, disoriented, other (barely able to lift his hands, able to tell his name) Musculoskeletal: other (trace extremity and dependent edema noted, contractures noted) - Lab 08/12/18 06:00 08/12/18 06:00 Most recent lab results Calcium 8.4 mg/dL (8.4-10.2) 08/12/18 06:00 Phosphorus 4.10 mg/dL (2.5-4.5) 07/31/18 04:25 Magnesium 1.80 mg/dL (1.7-2.3) 08/12/18 06:00 Urine Creatinine 27.3 mg/dL (0.1-20.0) H 07/31/18 Unknown Urine Sodium 99 mmol/L 07/31/18 Unknown Medications & Allergies - Medications Allergies/Adverse Reactions: Allergies tramadol Allergy (Verified 07/29/18 18:39) Unknown Home Medications: Home Medications Medication Instructions Recorded Confirmed Last Taken Type amLODIPine [Norvasc] 10 mg NGTUBE DAILY 06/02/16 07/30/18 Unknown History Multivit-Min/Iron Fum/Folic AC 1 each PO DAILY 03/24/18 07/30/18 Unknown History [Fbyka-Uirxjut-Ogdbcwab Tablet] Carvedilol [Coreg] 6.25 mg PO Q12H 06/13/18 07/30/18 Unknown History Acetaminophen 650 mg NGTUBE Q6H PRN 07/30/18 07/30/18 Unknown History Apixaban [Eliquis] 2.5 mg PO Q12H 07/30/18 07/30/18 Unknown History AtorvaSTATin [Lipitor] 40 mg NGTUBE QHS 07/30/18 07/30/18 Unknown History Dutasteride 0.5 mg NGTUBE QAM 07/30/18 07/30/18 Unknown History Furosemide [Lasix TAB] 40 mg PO QDAY 07/30/18 07/30/18 Unknown History Ipratropium/Albuterol Sulfate 1 ampul IH BID 07/30/18 07/30/18 Unknown History [DUONEB *Not for PRN Use*] Lisinopril [Zestril TAB] 40 mg PO QDAY 07/30/18 07/30/18 Unknown History Oxycodone HCl/Acetaminophen 1 each PO Q8HR PRN 07/30/18 07/30/18 Unknown History [Percocet 7.5/325 mg] Tamsulosin [Flomax] 0.4 mg PO QDAY 07/30/18 07/30/18 Unknown History Vit C/Ascorbate Calcium,Sodium 500 mg NGTUBE BID 07/30/18 07/30/18 Unknown History [Vitamin C 500 mg/15 ml Liquid] Zinc Sulfate 220 mg NGTUBE QDAY 07/30/18 07/30/18 Unknown History diphenhydrAMINE [Benadryl CAP] 25 mg NGTUBE Q6H PRN 07/30/18 07/30/18 Unknown History levETIRAcetam [Keppra INJ] 500 mg PO Q12H 07/30/18 07/30/18 Unknown History Active Medications: Generic Name Dose Route Start Last Admin Trade Name Freq PRN Reason Stop Dose Admin Acetaminophen 650 mg 07/30/18 02:50 08/08/18 22:03 Tylenol PO 650 mg Q4H PRN Administration Pain MILD(1-3)/Fever >100.5/PRICE Lipase/Protease/Amylase 1 each 07/30/18 13:59 Pancreaze 10,500 Unit FEEDTUBE PRN PRN For Clogged Feeding Tube Ascorbic Acid 500 mg 07/30/18 10:00 08/11/18 22:44 Vitamin C PO 500 mg BID NORA Administration Atorvastatin Calcium 40 mg 08/04/18 22:00 08/11/18 22:44 Lipitor PO 40 mg QHS NORA Administration Carvedilol 3.125 mg 08/04/18 22:00 08/11/18 22:43 Coreg PO 3.125 mg BID NORA Administration Dextrose 50 ml 07/30/18 02:56 D50w (25gm) Syringe IV PRN PRN Hypoglycemia Hydrochlorothiazide 25 mg 08/10/18 10:00 08/11/18 10:38 Hctz PO 25 mg QDAY NORA Administration Tigecycline 50 mg/ Sodium 100 mls @ 100 mls/hr 08/03/18 22:00 08/11/18 22:43 Chloride IV 100 mls/hr Q12HR NORA Administration MEROPENEM/VABORBACTAM 4 gm/ 250 mls @ 90 mls/hr 08/11/18 22:00 08/12/18 05:11 Sodium Chloride IV 08/20/18 21:59 90 mls/hr Q8HR NORA Administration Insulin Human Regular 0 units 07/31/18 12:00 08/12/18 05:05 Humulin R SUB-Q Not Given Q6HR NORA Protocol Levetiracetam 500 mg 07/30/18 06:00 08/12/18 05:05 Keppra PO 500 mg Q12H NORA Administration Ondansetron HCl 4 mg 07/30/18 02:50 Zofran IV Q8H PRN Nausea And Vomiting Simple Syrup 15 ml 07/30/18 13:59 Simple Syrup FEEDTUBE PRN PRN Hypoglycemia Simple Syrup 30 ml 07/30/18 13:59 Simple Syrup FEEDTUBE PRN PRN Hypoglycemia Sodium Bicarbonate 325 mg 07/30/18 13:59 Sodium Bicarbonate FEEDTUBE PRN PRN For Clogged Feeding Tube Sodium Chloride 10 ml 07/30/18 10:00 08/11/18 22:45 Sodium Chloride Flush Syringe 10 Ml IV 10 ml BID NORA Administration Sodium Chloride 10 ml 07/30/18 02:50 Sodium Chloride Flush Syringe 10 Ml IV PRN PRN LINE FLUSH Zinc Sulfate 220 mg 07/30/18 10:00 08/11/18 10:39 Zinc Sulfate PO 220 mg QDAY NORA Administration
[2018-08-12] MEDS: COREG PO SCH ×2 (10:56→22:39)
[2018-08-12] MEDS: VITAMIN C PO SCH ×2 (10:56→22:39)
[2018-08-12] MEDS: ZINC SULFATE PO SCH (10:57)
[2018-08-12] MEDS: SODIUM CHLORIDE FLUSH SYRINGE 10 ML IV SCH ×2 (10:58→22:42)
[2018-08-12] MEDS: HCTZ PO SCH (10:59)
--- NOTE | 2018-08-12 13:51 | Progress Note ---
Assessment and Plan Assessment and plan: Severe sepsis -probably 2/2 multiple infected decubitus ulcers/UTI. -On IV antibiotics, off pressor Escherichia coli bacteremia. Continue antibiotics per ID UTI: -Chaudhary catheter changed on admission -Continue abx. -Urine culture contaminated. Multiple decubitus ulcers -Continue wound care. Continue wound VAC. -Patient is status post extensive debridement per Dr. Man on 08/07/18 -Prognosis is very poor. Transaminitis -probably from shock liver, improved Acute kidney injury -probably vasomotor nephropathy -resolved -Avoid nephrotoxic agents. Hypernatremia -probably secondary to dehydration -Resolved Metabolic acidosis. -improving, will monitor Acute on chronic anemia -S/p 3u PRBC -H/H stable, will monitor Hyperkalemia -Kayexalate today, recheck BMP later today Severe protein calorie malnutrition -On tube feeding -Dietitian following History of HTN -BP stable Seizure disorder -Continue Keppra -Seizure precautions H/O CAD -cont coreg and statin -home eliquis on hold due to the anemia H/O dementia -cont supportive care Disposition: overall prognosis is very poor. D/c will depend on clinical course Consider family discussion regarding hospice. History Interval history: 67-year-old male who is a longterm resident who has been hospitalized multiple times to this hospital in the recent past. He has a history of stroke, dementia, CHF, COPD, diabetes, multiple chronic decubitus ulcers, indwelling Chaudhary catheter and multiple recurrent urinary tract infections, previous prostate abscess, hypertension was brought to the hospital this time with fevers and hypotension: No new issues overnight. Hospitalist Physical - Constitutional Vitals: Temp Pulse Resp BP Pulse Ox 98.3 F 80 26 H 133/71 97 08/12/18 12:00 08/12/18 13:00 08/12/18 13:00 08/12/18 13:00 08/12/18 13:00 General appearance: Present: no acute distress, other (ill-looking) - EENT Eyes: Present: PERRL, EOM intact ENT: hearing intact, clear oral mucosa, dentition normal - Neck Neck: Present: supple, normal ROM - Respiratory Respiratory effort: normal Respiratory: bilateral: CTA - Cardiovascular Rhythm: regular Heart Sounds: Present: S1 & S2. Absent: gallop, rub - Extremities Extremities: no ischemia, No edema, Full ROM - Abdominal General gastrointestinal: soft, non-tender, non-distended, normal bowel sounds - Integumentary Integumentary: Present: clear, warm, dry - Neurologic Neurologic: CNII-XII intact, moves all extremities Results - Labs CBC & Chem 7: 08/12/18 06:00 08/12/18 06:00 Labs: Laboratory Last Values WBC 11.5 K/mm3 (4.5-11.0) H 08/12/18 06:00 RBC 3.16 M/mm3 (3.65-5.03) L 08/12/18 06:00 Hgb 9.2 gm/dl (11.8-15.2) L 08/12/18 06:00 Hct 26.7 % (35.5-45.6) L 08/12/18 06:00 MCV 84 fl (84-94) 08/12/18 06:00 MCH 29 pg (28-32) 08/12/18 06:00 MCHC 34 % (32-34) 08/12/18 06:00 RDW 17.7 % (13.2-15.2) H 08/12/18 06:00 Plt Count 598 K/mm3 (140-440) H 08/12/18 06:00 Lymph % (Auto) 11.1 % (13.4-35.0) L 08/12/18 06:00 [place] % (Auto) 8.0 % (0.0-7.3) H 08/12/18 06:00 Eos % (Auto) 3.0 % (0.0-4.3) 08/12/18 06:00 Baso % (Auto) 1.1 % (0.0-1.8) 08/12/18 06:00 Lymph # 1.3 K/mm3 (1.2-5.4) 08/12/18 06:00 [place] # 0.9 K/mm3 (0.0-0.8) H 08/12/18 06:00 Eos # 0.3 K/mm3 (0.0-0.4) 08/12/18 06:00 Baso # 0.1 K/mm3 (0.0-0.1) 08/12/18 06:00 Seg Neutrophils % 76.8 % (40.0-70.0) H 03/25/19 06:00 Seg Neutrophils # 8.8 K/mm3 (1.8-7.7) H 08/12/18 06:00 Sodium 139 mmol/L (137-145) 08/12/18 06:00 Potassium 3.9 mmol/L (3.6-5.0) 08/12/18 06:00 Chloride 107.6 mmol/L (98-107) H 08/12/18 06:00 Carbon Dioxide 22 mmol/L (22-30) 08/12/18 06:00 Anion Gap 13 mmol/L 08/12/18 06:00 BUN 35 mg/dL (9-20) H 08/12/18 06:00 Creatinine 0.5 mg/dL (0.8-1.5) L 08/12/18 06:00 Estimated GFR > 60 ml/min 08/12/18 06:00 BUN/Creatinine Ratio 70 % 08/12/18 06:00 Glucose 102 mg/dL (75-100) H 08/12/18 06:00 POC Glucose 90 (70-105) 08/12/18 12:33 Lactic Acid 1.60 mmol/L (0.7-2.0) 07/30/18 03:26 Calcium 8.4 mg/dL (8.4-10.2) 08/12/18 06:00 Phosphorus 4.10 mg/dL (2.5-4.5) 07/31/18 04:25 Magnesium 1.80 mg/dL (1.7-2.3) 08/12/18 06:00 Total Bilirubin 0.30 mg/dL (0.1-1.2) 08/05/18 03:54 Direct Bilirubin < 0.2 mg/dL (0-0.2) 08/05/18 03:54 AST 21 units/L (5-40) 08/05/18 03:54 ALT 26 units/L (7-56) 08/05/18 03:54 Alkaline Phosphatase 258 units/L (35-129) H 08/05/18 03:54 Troponin T 0.162 ng/mL (0.00-0.029) H* 08/01/18 05:45 Total Protein 6.1 g/dL (6.3-8.2) L 08/05/18 03:54 Albumin 1.5 g/dL (3.9-5) L 08/05/18 03:54 Albumin/Globulin Ratio 0.3 % 08/05/18 03:54 Triglycerides 130 mg/dL (2-149) 08/01/18 05:45 Cholesterol 83 mg/dL (50-199) 08/01/18 05:45 LDL Cholesterol Direct 12 mg/dL (50-130) L 08/01/18 05:45 HDL Cholesterol 17 mg/dL (40-59) L 08/01/18 05:45 Cholesterol/HDL Ratio 4.88 % 08/01/18 05:45 Urine Color [place] (Yellow) 07/29/18 21:33 Urine Turbidity Cloudy (Clear) 07/29/18 21:33 Urine pH 5.0 (5.0-7.0) 07/29/18 21:33 Ur Specific [place] 1.028 (1.003-1.030) 07/29/18 21:33 Urine Protein 100 mg/dl mg/dL (Negative) 07/29/18 21:33 Urine Glucose (UA) Neg mg/dL (Negative) 07/29/18 21:33 Urine Ketones Neg mg/dL (Negative) 07/29/18 21:33 Urine Blood Mod (Negative) 07/29/18 21:33 Urine Nitrite Neg (Negative) 07/29/18 21:33 Urine Bilirubin Neg (Negative) 07/29/18 21:33 Urine Urobilinogen 2.0 mg/dL (<2.0) 07/29/18 21:33 Ur Leukocyte Esterase Lg (Negative) 07/29/18 21:33 Urine WBC (Auto) > 182.0 /HPF (0.0-6.0) H 07/29/18 21:33 Urine RBC (Auto) > 182.0 /HPF (0.0-6.0) 07/29/18 21:33 Urine Bacteria (Auto) 4+ /HPF (Negative) 07/29/18 21:33 Urine WBC Clumps 3+ /HPF 07/29/18 21:33 Urine Mucus Few /HPF 07/29/18 21:33 Urine Eosinophils None seen (None Seen) 07/31/18 Unknown Urine Creatinine 27.3 mg/dL (0.1-20.0) H 07/31/18 Unknown Urine Sodium 99 mmol/L 07/31/18 Unknown Blood Type O POSITIVE 03/12/19 03:26 Antibody Screen Negative 07/30/18 03:26 Crossmatch See Detail 07/30/18 03:26 Active Medications - Current Medications Current Medications: Generic Name Dose Route Start Last Admin Trade Name Freq PRN Reason Stop Dose Admin Acetaminophen 650 mg 07/30/18 02:50 08/08/18 22:03 Tylenol PO 650 mg Q4H PRN Administration Pain MILD(1-3)/Fever >100.5/PRICE Lipase/Protease/Amylase 1 each 07/30/18 13:[address] 10,500 Unit FEEDTUBE PRN PRN For Clogged Feeding Tube Ascorbic Acid 500 mg 07/30/18 10:00 08/12/18 10:56 Vitamin C PO 500 mg BID NORA Administration Atorvastatin Calcium 40 mg 08/04/18 22:00 08/11/18 22:44 Lipitor PO 40 mg QHS NORA Administration Carvedilol 3.125 mg 08/04/18 22:00 08/12/18 10:56 Coreg PO 3.125 mg BID NORA Administration Dextrose 50 ml 07/30/18 02:56 D50w (25gm) Syringe IV PRN PRN Hypoglycemia Hydrochlorothiazide 25 mg 08/10/18 10:00 08/12/18 10:59 Hctz PO 25 mg QDAY NORA Administration Tigecycline 50 mg/ Sodium 100 mls @ 100 mls/hr 08/03/18 22:00 08/11/18 22:43 Chloride IV 100 mls/hr Q12HR NORA Administration MEROPENEM/VABORBACTAM 4 gm/ 250 mls @ 90 mls/hr 08/11/18 22:00 08/12/18 05:11 Sodium Chloride IV 08/20/18 21:59 90 mls/hr Q8HR NORA Administration Insulin Human Regular 0 units 07/31/18 12:00 08/12/18 05:05 Humulin R SUB-Q Not Given Q6HR [facility] Protocol Levetiracetam 500 mg 07/30/18 06:00 08/12/18 05:05 Keppra PO 500 mg Q12H NORA Administration Ondansetron HCl 4 mg 07/30/18 02:50 Zofran IV Q8H PRN Nausea And Vomiting Simple Syrup 15 ml 07/30/18 13:59 Simple Syrup FEEDTUBE PRN PRN Hypoglycemia Simple Syrup 30 ml 07/30/18 13:59 Simple Syrup FEEDTUBE PRN PRN Hypoglycemia Sodium Bicarbonate 325 mg 07/30/18 13:59 Sodium Bicarbonate FEEDTUBE PRN PRN For Clogged Feeding Tube Sodium Chloride 10 ml 07/30/18 10:00 08/12/18 10:58 Sodium Chloride Flush Syringe 10 Ml IV 10 ml BID NORA Administration Sodium Chloride 10 ml 07/30/18 02:50 Sodium Chloride Flush Syringe 10 Ml IV PRN PRN LINE FLUSH Zinc Sulfate 220 mg 07/30/18 10:00 08/12/18 10:57 Zinc Sulfate PO 220 mg QDAY NORA Administration Nutrition/Malnutrition Assess - Dietary Evaluation Nutrition/Malnutrition Findings: Nutrition Notes Start: 07/30/18 09:58 Freq: Status: Active Protocol: Document 08/11/18 10:03 LP (Rec: 08/11/18 10:05 LP [id number]) Nutrition Notes Need for Assessment generated from: MD Order Initial or Follow up Reassessment Current Diagnosis Coronary Artery Disease, Decubitus(Pressure Ulcer), Diabetes,Hypertension,Heart Failure Other Pertinent Diagnosis Septic shock, UTI, Seizure D/O , anemia Current Diet Promote at 75mL/hr with 50mL flush q4h or per ND Labs/Tests K 5.5 Pertinent Medications Kionex Height 5 ft 10 in Weight 58.48 kg [place] Body Weight (kg) 75.45 BMI 18.5 Subjective/Other Information Consult for TF. Pt TF needs to be changed due to renal function. Burn Absent Trauma Absent #1 Nutrition Diagnosis Malnutrition Diagnosis Progress(for reassessment Continues documentation) Is patient on ventilator? No Is Patient Ambulatory and/or Out of Bed No REE-([facility]-confined to bed) 1639.092 Kcal/Kg value to use for calculation 35 Approximate Energy Requirements Using 2047 kcal/Kg Additional Notes protein (1.5-2g/kg): 88-117g fluid: 1mL/kcal or per MD Nutrition Intervention Change Diet Order: TF Nutrition Support: Change to [place] at 50ml/hr Flush with 220ml q4h Kcal 2,160 Protein (gm) 97 Fluid (mL) 872 Goal #1 TF tolerance Goal #2 TF to meet 100% energy and pro needs Goal #3 Wt maintenance and/or gain Goal #4 Wound healing Anticipated Discharge Needs: TF Follow-Up By: 08/13/18 Additional Comments Follow for TF change and tolerance, renal labs
--- NOTE | 2018-08-12 20:18 | Progress Note ---
Assessment and Plan Cultures: 07/29/2018 blood culture: E.coli, highly MDR, Proteus, beta hemolytic group G Streptococcus, Enterococcus Urine culture: mixed madeline 07/31/2018 blood culture: E. coli, 1 out of 4 bottles 08/06/2018: blood culture: no growth to date A/P: 67-year-old male who is a sn[facility] resident who has been hospitalized multiple times to this hospital in the recent past. He has a history of stroke, dementia, CHF, COPD, diabetes, multiple chronic decubitus ulcers, indwelling Chaudhary catheter and multiple recurrent urinary tract infections, previous prostate abscess, hypertension was brought to the hospital this time with fevers and hypotension: 1) Septic shock secondary to polymicrobial bacteremia ESBL E coli, MDR Proteus, Strep and E faecalis: Source is probably multiple infected decubitus ulcers and less likely UTI. 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 Repeat blood cultures 08/06/2018 no growth to date. 2) UTI: Chaudhary was apparently exchanged in ED. Continue abx. 3) Extensive and multiple decubitus ulcers: Multiple hospitalizations in the recent past. Of note, during his last hospitalization in May 2018, patient was discharged with hospice. Unclear why he was rehospitalized, would strongly encourage hospice again. Continue wound care. Prognosis is extremely poor. LEFT HEEL UNSTAGEBALE PRESSURE INJURY. WOUND MEASURES 5X6.5X2. ESCHAR NOTED AROUND EDGES. MODERATE AMOUNT OF SLOUGH NOTED. THERE IS SOME PINK GRANULATION TISSUE. NO ODOR. MODERATE AMOUNT OF SEROSANGUINEOUS DRAINAGE. LEFT LATERAL MALLEOLUS NOTED TO HAVE A SCABBED AREA. SCANT DRAINAGE. LEFT KNEE WOUND ALMOST HEALED. SCANT DRAINAGE. RIGHT LATERAL GREAT TOE ESCHAR. MINIMAL BLEEDING FROM EDGES. MEASURES 2X1X0.1. RIGHT MEDIAL LOWER LEG PRESSURE STAGE 2 INJURY MEASURES 6.5X2.5X0.1. SMALL A MOUNT OF SEROSANGUINEOUS DRAINAGE NOTED. LEFT MEDIAL THIGH WOUND MEASURES 1X1.5X0.3. SMALL AMOUNT OF YELLOW DRAINAGE. NO ODOR. RIGHT LATERAL ANKLE UNSTAGEABLE PRESSURE INJURY. MEASURES 5.5X1.5X0.3. WOUND IS NECROTIC. SMALL AMOUNT OF GRAYISH SUMMERS DRAINAGE. NO ODOR. RIGHT LATERAL MALLEOLUS STAGE 3 PRESSURE INJURY MEASURES 3X2.5X0.3. COVERED WITH YELLOW SLOUGH. MODERATE AMOUNT OF SEROSANGUINEOUS DRAINAGE NOTED. NO ODOR. RIGHT MEDIAL HEEL UNSTAGEABLE PRESSURE ULCER. MEASURES 3.4X2X4. THERE IS A SMALL AMOUNT OF RED GRANULATION TISSUE NOTED, BUT WOUND PROBES TO 4CM AND THERE IS NECROTIC TISSUE NOTED IN THE BASE OF THAT AREA. MODERATE AMOUNT OF SEROUS UNSTAGEABLE LEFT HIP PRESSURE INJURY. MEASURES 7.5X6X5. MILD ODOR. WOUND IS NECROTIC IN THE BASE. HOWEVER THERE IS SOME GRANULATION TISSUE NOTED. LARGE AMOUNT OF SEROSANGUINEOUS DRAINAGE. UNSTAGEABLE SACRAL PRESSURE INJURY. MEASURES 14X8X1. MODERATE AMOUNT OF SEROSANGUINEOUS DRAINAGE NOTED. NO ODOR. THERE IS A NECROTIC AREA AT 9 OCLOCK. LEFT FLANK UNSTAGEABLE PRESSURE INJURY MEASURES 4X3X0.3. COVERED WITH YELLOW SLOUGH. SMALL AMOUNT OF YELLOW DRAINAGE. 4) Chronic Alk phos elevation, transaminases also elevated this time probably from shock liver. 5) ?septic arthritis of left hip from decubitus ulcer: poor prognosis. Recs: continue Tigecycline 50 mg q12 hrs until susceptibilities for Vabomere results Continue Vabomere at 4gms IV every 8 hours total 14 days ending 08-20-18, D6 Multiple wound infections is incurable, further antibiotic therapy is futile and will only breed more resistance f/u Blood cultures for ID and RICARDO Consider Ethics committee evaluation Will follow Penny Bernardo MD Infectious Diseases [place] [facility] M [phone] O [phone] Subjective Date of service: 08/12/18 Principal diagnosis: Chest Pain Interval history: Remains alert, communicating but unclear speech, Tmax 100. ROS unable Objective - Exam Narrative Exam: General appearance: Alert in NAD, conversant Eyes: anicteric sclerae, moist conjunctivae; no lid-lag; PERRLA HENT: Atraumatic; oropharynx limited Neck: Trachea midline; supple, no thyromegaly or lymphadenopathy Lungs: CTA CV: RRR Abdomen: Soft, non-tender; PEG Extremities: contracted altaf Skin: per wound care eval--> LEFT HEEL UNSTAGEBALE PRESSURE INJURY. WOUND MEASURES 5X6.5X2. ESCHAR NOTED AROUND EDGES. MODERATE AMOUNT OF SLOUGH NOTED. THERE IS SOME PINK GRANULATION TISSUE. NO ODOR. MODERATE AMOUNT OF SEROSANGUINEOUS DRAINAGE. LEFT LATERAL MALLEOLUS NOTED TO HAVE A SCABBED AREA. SCANT DRAINAGE. LEFT KNEE WOUND ALMOST HEALED. SCANT DRAINAGE. RIGHT LATERAL GREAT TOE ESCHAR. MINIMAL BLEEDING FROM EDGES. MEASURES 2X1X0.1. RIGHT MEDIAL LOWER LEG PRESSURE STAGE 2 INJURY MEASURES 6.5X2.5X0.1. SMALL AMOUNT OF SEROSANGUINEOUS DRAINAGE NOTED. LEFT MEDIAL THIGH WOUND MEASURES 1X1.5X0.3. SMALL AMOUNT OF YELLOW DRAINAGE. NO ODOR. RIGHT LATERAL ANKLE UNSTAGEABLE PRESSURE INJURY. MEASURES 5.5X1.5X0.3. WOUND IS NECROTIC. SMALL AMOUNT OF GRAYISH [place] DRAINAGE. NO ODOR. RIGHT LATERAL MALLEOLUS STAGE 3 PRESSURE INJURY MEASURES 3X2.5X0.3. COVERED WITH YELLOW SLOUGH. MODERATE AMOUNT OF SEROSANGUINEOUS DRAINAGE NOTED. NO ODOR. RIGHT MEDIAL HEEL UNSTAGEABLE PRESSURE ULCER. MEASURES 3.4X2X4. THERE IS A SMALL AMOUNT OF RED GRANULATION TISSUE NOTED, BUT WOUND PROBES TO 4CM AND THERE IS NECROTIC TISSUE NOTED IN THE BASE OF THAT AREA. MODERATE AMOUNT OF SEROUS UNSTAGEABLE LEFT HIP PRESSURE INJURY. MEASURES 7.5X6X5. MILD ODOR. WOUND IS NECROTIC IN THE BASE. HOWEVER THERE IS SOME GRANULATION TISSUE NOTED. LARGE AMOUNT OF SEROSANGUINEOUS DRAINAGE. UNSTAGEABLE SACRAL PRESSURE INJURY. MEASURES 14X8X1. MODERATE AMOUNT OF SEROSANGUINEOUS DRAINAGE NOTED. NO ODOR. THERE IS A NECROTIC AREA AT 9 OCLOCK. LEFT FLANK UNSTAGEABLE PRESSURE INJURY MEASURES 4X3X0.3. COVERED WITH YELLOW SLOUGH. SMALL AMOUNT OF YELLOW DRAINAGE. - Constitutional Vitals: Vital Signs Temp Pulse Resp BP Pulse Ox 97.4 F L 88 18 133/71 100 08/12/18 16:00 08/12/18 16:00 08/12/18 16:00 08/12/18 13:00 08/12/18 16:00 Temperature -Last 24 Hours Temperature 97.4 F Temperature 98.3 F Temperature 98.0 F Temperature 100.0 F Temperature 100.0 F Temperature 99.9 F - Labs CBC & Chem 7: 08/12/18 06:00 08/12/18 06:00 Labs: Abnormal lab results 08/12/18 08/12/18 08/12/18 Range/Units 00:19 06:00 06:00 WBC 11.5 H (4.5-11.0) K/mm3 RBC 3.16 L (3.65-5.03) M/mm3 Hgb 9.2 L (11.8-15.2) gm/dl Hct 26.7 L (35.5-45.6) % RDW 17.7 H (13.2-15.2) % Plt Count 598 H (140-440) K/mm3 Lymph % (Auto) 11.1 L (13.4-35.0) % [place] % (Auto) 8.0 H (0.0-7.3) % [place] # 0.9 H (0.0-0.8) K/mm3 Seg Neutrophils % 76.8 H (40.0-70.0) % Seg Neutrophils # 8.8 H (1.8-7.7) K/mm3 Chloride 107.6 H (98-107) mmol/L BUN 35 H (9-20) mg/dL Creatinine 0.5 L (0.8-1.5) mg/dL Glucose 102 H (75-100) mg/dL POC Glucose 68 L (70-105)
[2018-08-13] MEDS: HumuLIN R SUB-Q SCH ×4 (05:18→20:35)
[2018-08-13] MEDS: KEPPRA PO SCH ×2 (05:22→20:40)
--- NOTE | 2018-08-13 09:20 | Progress Note ---
Assessment and Plan 1. Acute kidney injury: Vasomotor / hemodynamic MÓNICA in the setting of hypotension, sepsis and volume depletion. CT abdomen was negative for hydronephrosis. Renal function is better. Monitor renal function. Avoid nephrotoxic agents. Meds dosage based on GFR. 2. 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 Potassium level is better. Low potassium formula tube feeding. Metabolic acidosis. Edema, improving. Monitor lytes. 3. Sepsis with shock: Off pressors. 4. Anemia: S/p PRBC. 5. Multiple decubitus ulcers: S/p debridement. Subjective Date of service: 08/13/18 Principal diagnosis: Chest Pain Interval history: Patient was seen and examined at the bedside. Objective - Vital Signs Vital signs: Vital Signs - 12hr 08/12/18 08/13/18 08/13/18 22:39 00:00 01:00 Temperature 99.3 F Pulse Rate 94 H 81 Pulse Rate [ 80 From Monitor] Respiratory 14 Rate Blood Pressure 139/77 O2 Sat by Pulse 100 Oximetry 08/13/18 08/13/18 04:00 04:19 Temperature 98.3 F 98.3 F Pulse Rate 78 Pulse Rate [ 80 From Monitor] Respiratory 14 Rate Blood Pressure O2 Sat by Pulse 100 Oximetry - General Appearance General appearance: well-developed, appears stated age, other (not in distress) EENT: ATNC, PERRL Respiratory: Present: Clear to Ascultation Cardiology: regular, S1S2, no murmurs Gastrointestinal: normoactive bowel sounds, no tenderness, other (PEG tube noted, bright catheter noted) Integumentary: ulcer, decubiti, other (dressing noted) Neurologic: other (not following command, able to tell his name) Musculoskeletal: other (trace edema of the feet noted) - Lab 08/12/18 06:00 08/13/18 08:01 Most recent lab results Calcium 8.4 mg/dL (8.4-10.2) 08/12/18 06:00 Phosphorus 4.10 mg/dL (2.5-4.5) 07/31/18 04:25 Magnesium 1.80 mg/dL (1.7-2.3) 08/12/18 06:00 Urine Creatinine 27.3 mg/dL (0.1-20.0) H 07/31/18 Unknown Urine Sodium 99 mmol/L 07/31/18 Unknown Medications & Allergies - Medications Allergies/Adverse Reactions: Allergies tramadol Allergy (Verified 07/29/18 18:39) Unknown Home Medications: Home Medications Medication Instructions Recorded Confirmed Last Taken Type amLODIPine [Norvasc] 10 mg NGTUBE DAILY 06/02/16 07/30/18 Unknown History Multivit-Min/Iron Fum/Folic AC 1 each PO DAILY 03/24/18 07/30/18 Unknown History [Abghy-Ukrzpta-Xmeqssog Tablet] Carvedilol [Coreg] 6.25 mg PO Q12H 06/13/18 07/30/18 Unknown History Acetaminophen 650 mg NGTUBE Q6H PRN 07/30/18 07/30/18 Unknown History Apixaban [Eliquis] 2.5 mg PO Q12H 07/30/18 07/30/18 Unknown History AtorvaSTATin [Lipitor] 40 mg NGTUBE QHS 07/30/18 07/30/18 Unknown History Dutasteride 0.5 mg NGTUBE QAM 07/30/18 07/30/18 Unknown History Furosemide [Lasix TAB] 40 mg PO QDAY 07/30/18 07/30/18 Unknown History Ipratropium/Albuterol Sulfate 1 ampul IH BID 07/30/18 07/30/18 Unknown History [DUONEB *Not for PRN Use*] Lisinopril [Zestril TAB] 40 mg PO QDAY 07/30/18 07/30/18 Unknown History Oxycodone HCl/Acetaminophen 1 each PO Q8HR PRN 07/30/18 07/30/18 Unknown History [Percocet 7.5/325 mg] Tamsulosin [Flomax] 0.4 mg PO QDAY 07/30/18 07/30/18 Unknown History Vit C/Ascorbate Calcium,Sodium 500 mg NGTUBE BID 07/30/18 07/30/18 Unknown History [Vitamin C 500 mg/15 ml Liquid] Zinc Sulfate 220 mg NGTUBE QDAY 07/30/18 07/30/18 Unknown History diphenhydrAMINE [Benadryl CAP] 25 mg NGTUBE Q6H PRN 07/30/18 07/30/18 Unknown History levETIRAcetam [Keppra INJ] 500 mg PO Q12H 07/30/18 07/30/18 Unknown History Active Medications: Generic Name Dose Route Start Last Admin Trade Name Freq PRN Reason Stop Dose Admin Acetaminophen 650 mg 07/30/18 02:50 08/08/18 22:03 Tylenol PO 650 mg Q4H PRN Administration Pain MILD(1-3)/Fever >100.5/PRICE Lipase/Protease/Amylase 1 each 07/30/18 13:59 Pancreaze 10,500 Unit FEEDTUBE PRN PRN For Clogged Feeding Tube Ascorbic Acid 500 mg 07/30/18 10:00 08/12/18 22:39 Vitamin C PO 500 mg BID NORA Administration Atorvastatin Calcium 40 mg 08/04/18 22:00 08/12/18 22:39 Lipitor PO 40 mg QHS [facility] Administration Carvedilol 3.125 mg 08/04/18 22:00 08/12/18 22:39 Coreg PO 3.125 mg BID NORA Administration Dextrose 50 ml 07/30/18 02:56 D50w (25gm) Syringe IV PRN PRN Hypoglycemia Hydrochlorothiazide 12.5 mg 08/12/18 19:22 Hctz PO QDAY NORA Tigecycline 50 mg/ Sodium 100 mls @ 100 mls/hr 08/03/18 22:00 08/11/18 23:43 Chloride IV Infused Q12HR [facility] Infusion MEROPENEM/VABORBACTAM 4 gm/ 250 mls @ 90 mls/hr 08/11/18 22:00 08/12/18 05:11 Sodium Chloride IV 08/20/18 21:59 90 mls/hr Q8HR [facility] Administration Insulin Human Regular 0 units 07/31/18 12:00 08/13/18 05:18 Humulin R SUB-Q Not Given Q6HR [facility] Protocol Levetiracetam 500 mg 07/30/18 06:00 08/13/18 05:22 Keppra PO 500 mg Q12H NORA Administration Ondansetron HCl 4 mg 07/30/18 02:50 Zofran IV Q8H PRN Nausea And Vomiting Simple Syrup 15 ml 07/30/18 13:59 Simple Syrup FEEDTUBE PRN PRN Hypoglycemia Simple Syrup 30 ml 07/30/18 13:59 Simple Syrup FEEDTUBE PRN PRN Hypoglycemia Sodium Bicarbonate 325 mg 07/30/18 13:59 Sodium Bicarbonate FEEDTUBE PRN PRN For Clogged Feeding Tube Sodium Chloride 10 ml 07/30/18 10:00 08/12/18 22:42 Sodium Chloride Flush Syringe 10 Ml IV 10 ml BID NORA Administration Sodium Chloride 10 ml 07/30/18 02:50 Sodium Chloride Flush Syringe 10 Ml IV PRN PRN LINE FLUSH Zinc Sulfate 220 mg 07/30/18 10:00 08/12/18 10:57 Zinc Sulfate PO 220 mg QDAY NORA Administration
[2018-08-13 09:28] LABS: BUN/Creatinine Ratio 60; Blood Urea Nitrogen 30 mg/dL (9-20); Calcium 8.7 mg/dL (8.4-10.2); Hemolysis Index 2
[2018-08-13] MEDS: VABOMERE 4 GM in NACL 0.9% 250ML 250 ML IV SCH ×4 (10:18→14:24)
[2018-08-13] MEDS: VITAMIN C PO SCH ×2 (10:23→21:09)
[2018-08-13] MEDS: NACL 0.9% IV SCH ×2 (10:23)
[2018-08-13] MEDS: ZINC SULFATE PO SCH (10:23)
[2018-08-13] MEDS: TYGACIL IV SCH ×2 (10:23)
[2018-08-13] MEDS: COREG PO SCH ×2 (10:24→21:10)
[2018-08-13] MEDS: HCTZ PO SCH (10:24)
[2018-08-13] MEDS: SODIUM CHLORIDE FLUSH SYRINGE 10 ML IV SCH (10:25)
--- NOTE | 2018-08-13 11:20 | Progress Note ---
Assessment and Plan Cultures: 07/29/2018 blood culture: E.coli, highly MDR, Proteus, beta hemolytic group G Streptococcus, Enterococcus Urine culture: mixed madeline 07/31/2018 blood culture: E. coli, 1 out of 4 bottles 08/06/2018: blood culture: no growth to date A/P: 67-year-old male who [facility] a [facility] who has been hospitalized multiple times to this hospital in the recent past. He has a history of stroke, dementia, CHF, COPD, diabetes, multiple chronic decubitus ulcers, indwelling Chaudhary catheter and multiple recurrent urinary tract infections, previous prostate abscess, hypertension was brought to the hospital this time with fevers and hypotension: 1) Septic shock secondary to polymicrobial bacteremia ESBL E coli, MDR Proteus, Strep and E faecalis: Source is probably multiple infected decubitus ulcers and less likely UTI. 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 Repeat blood cultures 08/06/2018 no growth to date. 2) UTI: Chaudhary was apparently exchanged in ED. Continue abx. 3) Extensive and multiple decubitus ulcers: Multiple hospitalizations in the recent past. Of note, during his last hospitalization in May 2018, patient was discharged with hospice. Unclear why he was rehospitalized, would strongly encourage hospice again. Continue wound care. Prognosis is extremely poor. LEFT HEEL UNSTAGEBALE PRESSURE INJURY. WOUND MEASURES 5X6.5X2. ESCHAR NOTED AROUND EDGES. MODERATE AMOUNT OF SLOUGH NOTED. THERE IS SOME PINK GRANULATION TISSUE. NO ODOR. MODERATE AMOUNT OF SEROSANGUINEOUS DRAINAGE. LEFT LATERAL MALLEOLUS NOTED TO HAVE A SCABBED AREA. SCANT DRAINAGE. LEFT KNEE WOUND ALMOST HEALED. SCANT DRAINAGE. RIGHT LATERAL GREAT TOE ESCHAR. MINIMAL BLEEDING FROM EDGES. MEASURES 2X1X0.1. RIGHT MEDIAL LOWER LEG PRESSURE STAGE 2 INJURY MEASURES 6.5X2.5X0.1. SMALL A MOUNT OF SEROSANGUINEOUS DRAINAGE NOTED. LEFT MEDIAL THIGH WOUND MEASURES 1X1.5X0.3. SMALL AMOUNT OF YELLOW DRAINAGE. NO ODOR. RIGHT LATERAL ANKLE UNSTAGEABLE PRESSURE INJURY. MEASURES 5.5X1.5X0.3. WOUND IS NECROTIC. SMALL AMOUNT OF GRAYISH SUMMERS DRAINAGE. NO ODOR. RIGHT LATERAL MALLEOLUS STAGE 3 PRESSURE INJURY MEASURES 3X2.5X0.3. COVERED WITH YELLOW SLOUGH. MODERATE AMOUNT OF SEROSANGUINEOUS DRAINAGE NOTED. NO ODOR. RIGHT MEDIAL HEEL UNSTAGEABLE PRESSURE ULCER. MEASURES 3.4X2X4. THERE IS A SMALL AMOUNT OF RED GRANULATION TISSUE NOTED, BUT WOUND PROBES TO 4CM AND THERE IS NECROTIC TISSUE NOTED IN THE BASE OF THAT AREA. MODERATE AMOUNT OF SEROUS UNSTAGEABLE LEFT HIP PRESSURE INJURY. MEASURES 7.5X6X5. MILD ODOR. WOUND IS NECROTIC IN THE BASE. HOWEVER THERE IS SOME GRANULATION TISSUE NOTED. LARGE AMOUNT OF SEROSANGUINEOUS DRAINAGE. UNSTAGEABLE SACRAL PRESSURE INJURY. MEASURES 14X8X1. MODERATE AMOUNT OF SEROSANGUINEOUS DRAINAGE NOTED. NO ODOR. THERE IS A NECROTIC AREA AT 9 OCLOCK. LEFT FLANK UNSTAGEABLE PRESSURE INJURY MEASURES 4X3X0.3. COVERED WITH YELLOW SLOUGH. SMALL AMOUNT OF YELLOW DRAINAGE. S/P bedside debridement on 08/07/[address] Man: Topical 4% Lidocaine was applied to his right lateral leg, right lateral ankle and sacral pressure ulcers. His right lateral leg, right lateral ankle and sacral pressure ulcers were surgically, excisionally debrided of necrotic skin and SQ tissue with a curette, scissors, scalpel and forceps. Bleeding was minimal and was controlled with pressure. Final wound measurements are as noted below. Wounds were then dressed by the Wound Care nurseMelissa. Pt was repositioned right side down. Topical 4% Lidocaine was applied to all of the below wounds. His left hip ulcer was surgically, excisionally debrided of necrotic muscle, fascia and bone with scissors and forceps. The left hip joint was grossly exposed during this debridement. Bleeding was minimal and was controlled with pressure. Final wound measurements are as noted below. Pt's left heel ulcer was then surgically, excisionally debrided of necrotic SQ tissue and muscle with forceps and scalpel. Bleeding was minimal and was controlled with pressure. Final wound measurements are as noted below. Finally, pt's left back and right medial leg ulcers were surgically, excisionally debrided of necrotic skin and SQ tissue with a curette, scalpel and forceps. Bleeding was minimal and was controlled with pressure. Final wound measurements are as noted below. All of these wounds were then dressed by the Wound Care nurseMelissa. Pt tolerated the procedure wel 4) Chronic Alk phos elevation, transaminases also elevated this time probably from shock liver. 5) ?septic arthritis of left hip from decubitus ulcer: poor prognosis. Recs: continue Tigecycline 50 mg q12 hrs until susceptibilities for Vabomere results Continue Vabomere at 4gms IV every 8 hours total 14 days ending 08-20-18, D6 Multiple wound infections is incurable, further antibiotic therapy is futile and will only breed more resistance f/u Blood cultures for ID and RICARDO - still pending Consider Ethics committee evaluation Will follow Penny Bernardo MD Infectious Diseases Laboratory Equipment Cleaner [facility] ([facility]) M [phone] O [phone] Subjective Date of service: 08/13/18 Principal diagnosis: Chest Pain Interval history: Remains alert, communicating but unclear speech, no fever for 24h. ROS unable Objective - Exam Narrative Exam: General appearance: Alert in NAD, conversant Eyes: anicteric sclerae, moist conjunctivae; no lid-lag; PERRLA HENT: Atraumatic; oropharynx limited Neck: Trachea midline; supple, no thyromegaly or lymphadenopathy Lungs: CTA CV: RRR Abdomen: Soft, non-tender; PEG Extremities: contracted altaf Skin: per wound care eval--> LEFT HEEL UNSTAGEBALE PRESSURE INJURY. WOUND MEASURES 5X6.5X2. ESCHAR NOTED AROUND EDGES. MODERATE AMOUNT OF SLOUGH NOTED. THERE IS SOME PINK GRANULATION TISSUE. NO ODOR. MODERATE AMOUNT OF SEROSANGUINEOUS DRAINAGE. LEFT LATERAL MALLEOLUS NOTED TO HAVE A SCABBED AREA. SCANT DRAINAGE. LEFT KNEE WOUND ALMOST HEALED. SCANT DRAINAGE. RIGHT LATERAL GREAT TOE ESCHAR. MINIMAL BLEEDING FROM EDGES. MEASURES 2X1X0.1. RIGHT MEDIAL LOWER LEG PRESSURE STAGE 2 INJURY MEASURES 6.5X2.5X0.1. SMALL AMOUNT OF SEROSANGUINEOUS DRAINAGE NOTED. LEFT MEDIAL THIGH WOUND MEASURES 1X1.5X0.3. SMALL AMOUNT OF YELLOW DRAINAGE. NO ODOR. RIGHT LATERAL ANKLE UNSTAGEABLE PRESSURE INJURY. MEASURES 5.5X1.5X0.3. WOUND IS NECROTIC. SMALL AMOUNT OF GRAYISH SUMMERS DRAINAGE. NO ODOR. RIGHT LATERAL MALLEOLUS STAGE 3 PRESSURE INJURY MEASURES 3X2.5X0.3. COVERED WITH YELLOW SLOUGH. MODERATE AMOUNT OF SEROSANGUINEOUS DRAINAGE NOTED. NO ODOR. RIGHT MEDIAL HEEL UNSTAGEABLE PRESSURE ULCER. MEASURES 3.4X2X4. THERE IS A SMALL AMOUNT OF RED GRANULATION TISSUE NOTED, BUT WOUND PROBES TO 4CM AND THERE IS NECROTIC TISSUE NOTED IN THE BASE OF THAT AREA. MODERATE AMOUNT OF SEROUS UNSTAGEABLE LEFT HIP PRESSURE INJURY. MEASURES 7.5X6X5. MILD ODOR. WOUND IS NECROTIC IN THE BASE. HOWEVER THERE IS SOME GRANULATION TISSUE NOTED. LARGE AMOUNT OF SEROSANGUINEOUS DRAINAGE. UNSTAGEABLE SACRAL PRESSURE INJURY. MEASURES 14X8X1. MODERATE AMOUNT OF SER OSANGUINEOUS DRAINAGE NOTED. NO ODOR. THERE IS A NECROTIC AREA AT 9 OCLOCK. LEFT FLANK UNSTAGEABLE PRESSURE INJURY MEASURES 4X3X0.3. COVERED WITH YELLOW SLOUGH. SMALL AMOUNT OF YELLOW DRAINAGE. Patient now with a wound VAC to left hip - Constitutional Vitals: Vital Signs Temp Pulse Resp BP Pulse Ox 97.4 F L 90 14 152/82 100 08/13/18 08:00 08/13/18 10:24 08/13/18 04:00 08/13/18 10:24 08/13/18 04:00 Temperature -Last 24 Hours Temperature 97.4 F Temperature 98.3 F Temperature 98.3 F Temperature 99.3 F Temperature 98.0 F Temperature 97.4 F Temperature 98.3 F - Labs CBC & Chem 7: 08/12/18 06:00 08/13/18 08:01 Labs: Abnormal lab results 08/13/18 Range/Units 08:01 Carbon Dioxide 21 L (22-30) mmol/L BUN 30 H (9-20) mg/dL Creatinine 0.5 L (0.8-1.5) mg/dL
--- NOTE | 2018-08-13 16:49 | Progress Note ---
Assessment and Plan Assessment and plan: Septic shock, source could be decubitus ulcer Bacteremia - Patient is currently on IV meropenem, and tigecycline based on the sensitivity -Culture is positive for Gram-negative rods and Streptococcus -ID consult appreciated -patient was treated with IV fluids and has swollen extremities, believe patient has fluid overload, getting better Septic arthritis - Could be due to decubitus ulcer - Continue IV antibiotics, orthopedics consulted Symptomatic anemia; last hemoglobin was 9.2, we'll continue to monitor Acute renal failure - Nephrology consulted, avoid nephrotoxins, IV fluids - Resolved Patient is bedbound, contracted extremities - Continue supportive care Multiple decubitus ulcer - on wound vac chest pain, chronic elevated troponin - Cardiology consulted and recommended conservative cardiac management DVT prophylaxis - SCDs because of severe anemia Disposition - I have discussed with ID, and recommend hospice and Id discussed with the family and they refused. I have a discussion with the family previously about hospice and family refused. He has been admitted many times previopusly and will not get better. I discussed with risk management Kari and need ethics committee to involve. History Interval history: Patient was seen and evaluated this morning, patient was alert and oriented, patient said he is not feeling well. Hospitalist Physical - Physical exam Narrative exam: Not in cardiopulmonary distress. The patient appeared well nourished and normally developed. Vital signs as documented. Head exam is unremarkable. No scleral icterus . Neck is without jugular venous distension, thyromegaly, or carotid bruits. Lungs are clear to auscultation. Cardiac exam reveals regular rate and Rhythm. First and second heart sounds normal. No murmurs, rubs or gallops. Abdominal exam reveals normal bowel sounds, no masses, no organomegaly and no aortic enlargement. Extremities contracted. Swollen. [employer]: Contracted Skin; multiple decubitus ulcer present on admission, wound vac in place. - Constitutional Vitals: Temp Pulse Resp BP Pulse Ox 97.5 F L 87 14 152/82 98 08/13/18 12:00 08/13/18 12:00 08/13/18 12:00 08/13/18 10:24 08/13/18 12:00 General appearance: Present: no acute distress, other (ill-looking) Results - Labs CBC & Chem 7: 08/12/18 06:00 08/13/18 08:01 Labs: Laboratory Last Values WBC 11.5 K/mm3 (4.5-11.0) H 08/12/18 06:00 RBC 3.16 M/mm3 (3.65-5.03) L 08/12/18 06:00 Hgb 9.2 gm/dl (11.8-15.2) L 08/12/18 06:00 Hct 26.7 % (35.5-45.6) L 08/12/18 06:00 MCV 84 fl (84-94) 08/12/18 06:00 MCH 29 pg (28-32) 08/12/18 06:00 MCHC 34 % (32-34) 08/12/18 06:00 RDW 17.7 % (13.2-15.2) H 08/12/18 06:00 Plt Count 598 K/mm3 (140-440) H 08/12/18 06:00 Lymph % (Auto) 11.1 % (13.4-35.0) L 08/12/18 06:00 [place] % (Auto) 8.0 % (0.0-7.3) H 08/12/18 06:00 Eos % (Auto) 3.0 % (0.0-4.3) 08/12/18 06:00 Baso % (Auto) 1.1 % (0.0-1.8) 08/12/18 06:00 Lymph # 1.3 K/mm3 (1.2-5.4) 08/12/18 06:00 [place] # 0.9 K/mm3 (0.0-0.8) H 08/12/18 06:00 Eos # 0.3 K/mm3 (0.0-0.4) 08/12/18 06:00 Baso # 0.1 K/mm3 (0.0-0.1) 08/12/18 06:00 Seg Neutrophils % 76.8 % (40.0-70.0) H 08/12/18 06:00 Seg Neutrophils # 8.8 K/mm3 (1.8-7.7) H 08/12/18 06:00 Sodium 137 mmol/L (137-145) 08/13/18 08:01 Potassium 3.8 mmol/L (3.6-5.0) 08/13/18 08:01 Chloride 103.6 mmol/L (98-107) 08/13/18 08:01 Carbon Dioxide 21 mmol/L (22-30) L 08/13/18 08:01 Anion Gap 16 mmol/L 08/13/18 08:01 BUN 30 mg/dL (9-20) H 08/13/18 08:01 Creatinine 0.5 mg/dL (0.8-1.5) L 08/13/18 08:01 Estimated GFR > 60 ml/min 08/13/18 08:01 BUN/Creatinine Ratio 60 % 08/13/18 08:01 Glucose 96 mg/dL (75-100) 08/13/18 08:01 POC Glucose 86 (70-105) 08/13/18 14:28 Lactic Acid 1.60 mmol/L (0.7-2.0) 07/30/18 03:26 Calcium 8.7 mg/dL (8.4-10.2) 08/13/18 08:01 Phosphorus 4.10 mg/dL (2.5-4.5) 07/31/18 04:25 Magnesium 1.80 mg/dL (1.7-2.3) 08/12/18 06:00 Total Bilirubin 0.30 mg/dL (0.1-1.2) 08/05/18 03:54 Direct Bilirubin < 0.2 mg/dL (0-0.2) 08/05/18 03:54 AST 21 units/L (5-40) 08/05/18 03:54 ALT 26 units/L (7-56) 08/05/18 03:54 Alkaline Phosphatase 258 units/L (35-129) H 08/05/18 03:54 Troponin T 0.162 ng/mL (0.00-0.029) H* 08/01/18 05:45 Total Protein 6.1 g/dL (6.3-8.2) L 08/05/18 03:54 Albumin 1.5 g/dL (3.9-5) L 08/05/18 03:54 Albumin/Globulin Ratio 0.3 % 08/05/18 03:54 Triglycerides 130 mg/dL (2-149) 08/01/18 05:45 Cholesterol 83 mg/dL (50-199) 08/01/18 05:45 LDL Cholesterol Direct 12 mg/dL (50-130) L 08/01/18 05:45 HDL Cholesterol 17 mg/dL (40-59) L 08/01/18 05:45 Cholesterol/HDL Ratio 4.88 % 08/01/18 05:45 Urine Color [place] (Yellow) 07/29/18 21:33 Urine Turbidity Cloudy (Clear) 07/29/18 21:33 Urine pH 5.0 (5.0-7.0) 07/29/18 21:33 Ur Specific [place] 1.028 (1.003-1.030) 07/29/18 21:33 Urine Protein 100 mg/dl mg/dL (Negative) 07/29/18 21:33 Urine Glucose (UA) Neg mg/dL (Negative) 07/29/18 21:33 Urine Ketones Neg mg/dL (Negative) 07/29/18 21:33 Urine Blood Mod (Negative) 07/29/18 21:33 Urine Nitrite Neg (Negative) 07/29/18 21:33 Urine Bilirubin Neg (Negative) 07/29/18 21:33 Urine Urobilinogen 2.0 mg/dL (<2.0) 07/29/18 21:33 Ur Leukocyte Esterase Lg (Negative) 07/29/18 21:33 Urine WBC (Auto) > 182.0 /HPF (0.0-6.0) H 07/29/18 21:33 Urine RBC (Auto) > 182.0 /HPF (0.0-6.0) 07/29/18 21:33 Urine Bacteria (Auto) 4+ /HPF (Negative) 07/29/18 21:33 Urine WBC Clumps 3+ /HPF 07/29/18 21:33 Urine Mucus Few /HPF 07/29/18 21:33 Urine Eosinophils None seen (None Seen) 07/31/18 Unknown Urine Creatinine 27.3 mg/dL (0.1-20.0) H 07/31/18 Unknown Urine Sodium 99 mmol/L 07/31/18 Unknown Blood Type O POSITIVE 07/30/18 03:26 Antibody Screen Negative 07/30/18 03: Crossmatch See Detail 07/30/18 03:26 Active Medications - Current Medications Current Medications: Generic Name Dose Route Start Last Admin Trade Name Freq PRN Reason Stop Dose Admin Acetaminophen 650 mg 07/30/18 02:50 08/08/18 22:03 Tylenol PO 650 mg Q4H PRN Administration Pain MILD(1-3)/Fever >100.5/PRICE Lipase/Protease/Amylase 1 each 07/30/18 13:59 Pancrenomi Moore 10,500 Unit FEEDTUBE PRN PRN For Clogged Feeding Tube Ascorbic Acid 500 mg 07/30/18 10:00 08/13/18 10:23 Vitamin C PO 500 mg BID NORA Administration Atorvastatin Calcium 40 mg 08/04/18 22:00 08/12/18 22:39 Lipitor PO 40 mg QHS NORA Administration Carvedilol 3.125 mg 08/04/18 22:00 08/13/18 10:24 Coreg PO 3.125 mg BID NORA Administration Dextrose 50 ml 07/30/18 02:56 D50w (25gm) Syringe IV PRN PRN Hypoglycemia Hydrochlorothiazide 12.5 mg 08/12/18 19:22 08/13/18 10:24 Hctz PO 12.5 mg QDAY NORA Administration Tigecycline 50 mg/ Sodium 100 mls @ 100 mls/hr 08/03/18 22:00 08/13/18 10:23 Chloride IV 100 mls/hr Q12HR NORA Administration MEROPENEM/VABORBACTAM 4 gm/ 250 mls @ 90 mls/hr 08/11/18 22:00 08/13/18 14:24 Sodium Chloride IV 08/20/18 21:59 90 mls/hr Q8HR NORA Administration Insulin Human Regular 0 units 07/31/18 12:00 08/13/18 14:25 Humulin R SUB-Q Not Given Q6HR [facility] Protocol Levetiracetam 500 mg 07/30/18 06:00 08/13/18 05:22 Keppra PO 500 mg Q12H NORA Administration Ondansetron HCl 4 mg 07/30/18 02:50 Zofran IV Q8H PRN Nausea And Vomiting Simple Syrup 15 ml 07/30/18 13:59 Simple Syrup FEEDTUBE PRN PRN Hypoglycemia Simple Syrup 30 ml 07/30/18 13:59 Simple Syrup FEEDTUBE PRN PRN Hypoglycemia Sodium Bicarbonate 325 mg 07/30/18 13:59 Sodium Bicarbonate FEEDTUBE PRN PRN For Clogged Feeding Tube Sodium Chloride 10 ml 07/30/18 10:00 08/13/18 10:25 Sodium Chloride Flush Syringe 10 Ml IV 10 ml BID NORA Administration Sodium Chloride 10 ml 07/30/18 02:50 Sodium Chloride Flush Syringe 10 Ml IV PRN PRN LINE FLUSH Zinc Sulfate 220 mg 07/30/18 10:00 08/13/18 10:23 Zinc Sulfate PO 220 mg QDAY NORA Administration Nutrition/Malnutrition Assess - Dietary Evaluation Nutrition/Malnutrition Findings: Nutrition Notes Start: 07/30/18 09:58 Freq: Status: Active Protocol: Document 08/11/18 10:03 LP (Rec: 08/11/18 10:05 LP [id number]) Nutrition Notes Need for Assessment generated from: MD Order Initial or Follow up Reassessment Current Diagnosis Coronary Artery Disease, Decubitus(Pressure Ulcer), Diabetes,Hypertension,Heart Failure Other Pertinent Diagnosis Septic shock, UTI, Seizure D/O , anemia Current Diet Promote at 75mL/hr with 50mL flush q4h or per ND Labs/Tests K 5.5 Pertinent Medications Kionex Height 5 ft 10 in Weight 58.48 kg Fate Body Weight (kg) 75.45 BMI 18.5 Subjective/Other Information Consult for TF. Pt TF needs to be changed due to renal function. Burn Absent Trauma Absent #1 Nutrition Diagnosis Malnutrition Diagnosis Progress(for reassessment Continues documentation) Is patient on ventilator? No Is Patient Ambulatory and/or Out of Bed No REE-([facility]-confined to bed) 1639.092 Kcal/Kg value to use for calculation 35 Approximate Energy Requirements Using 2047 kcal/Kg Additional Notes protein (1.5-2g/kg): 88-117g fluid: 1mL/kcal or per MD Nutrition Intervention Change Diet Order: TF Nutrition Support: Change to Nepro at 50ml/hr Flush with 220ml q4h Kcal 2,160 Protein (gm) 97 Fluid (mL) 872 Goal #1 TF tolerance Goal #2 TF to meet 100% energy and pro needs Goal #3 Wt maintenance and/or gain Goal #4 Wound healing Anticipated Discharge Needs: TF Follow-Up By: 08/13/18 Additional Comments Follow for TF change and tolerance, renal labs
[2018-08-14] MEDS: NACL 0.9% IV SCH ×2 (02:34→12:00)
[2018-08-14] MEDS: TYGACIL IV SCH ×2 (02:34→12:00)
[2018-08-14] MEDS: VABOMERE 4 GM in NACL 0.9% 250ML 250 ML IV SCH ×4 (02:35→22:23)
[2018-08-14] MEDS: SODIUM CHLORIDE FLUSH SYRINGE 10 ML IV SCH ×3 (02:35→21:19)
[2018-08-14] MEDS: KEPPRA PO SCH ×2 (05:51→18:36)
[2018-08-14] MEDS: HumuLIN R SUB-Q SCH ×3 (05:52→18:00)
[2018-08-14 06:17] LABS: BUN/Creatinine Ratio 73; Blood Urea Nitrogen 29 mg/dL (9-20); Calcium 8.5 mg/dL (8.4-10.2); Hemolysis Index 5
--- NOTE | 2018-08-14 08:36 | Progress Note ---
Assessment and Plan Cultures: 07/29/2018 blood culture: E.coli, highly MDR, Proteus, beta hemolytic group G Streptococcus, Enterococcus Urine culture: mixed madeline 07/31/2018 blood culture: E. coli, 1 out of 4 bottles 08/06/2018: blood culture: no growth to date A/P: 67-year-old male who is a jail resident who has been hospitalized multiple times to this hospital in the recent past. He has a history of stroke, dementia, CHF, COPD, diabetes, multiple chronic decubitus ulcers, indwelling Chaudhary catheter and multiple recurrent urinary tract infections, previous prostate abscess, hypertension was brought to the hospital this time with fevers and hypotension: 1) Septic shock secondary to polymicrobial bacteremia ESBL E coli, MDR Proteus, Strep and E faecalis: Source is probably multiple infected decubitus ulcers and less likely UTI. 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 Repeat blood cultures 08/06/2018 no growth to date. 2) UTI: Chaudhary was apparently exchanged in ED. Continue abx. 3) Extensive and multiple decubitus ulcers: Multiple hospitalizations in the recent past. Of note, during his last hospitalization in May 2018, patient was discharged with hospice. Unclear why he was rehospitalized, would strongly encourage hospice again. Continue wound care. Prognosis is extremely poor. LEFT HEEL UNSTAGEBALE PRESSURE INJURY. WOUND MEASURES 5X6.5X2. ESCHAR NOTED AROUND EDGES. MODERATE AMOUNT OF SLOUGH NOTED. THERE IS SOME PINK GRANULATION TISSUE. NO ODOR. MODERATE AMOUNT OF SEROSANGUINEOUS DRAINAGE. LEFT LATERAL MALLEOLUS NOTED TO HAVE A SCABBED AREA. SCANT DRAINAGE. LEFT KNEE WOUND ALMOST HEALED. SCANT DRAINAGE. RIGHT LATERAL GREAT TOE ESCHAR. MINIMAL BLEEDING FROM EDGES. MEASURES 2X1X0.1. RIGHT MEDIAL LOWER LEG PRESSURE STAGE 2 INJURY MEASURES 6.5X2.5X0.1. SMALL A MOUNT OF SEROSANGUINEOUS DRAINAGE NOTED. LEFT MEDIAL THIGH WOUND MEASURES 1X1.5X0.3. SMALL AMOUNT OF YELLOW DRAINAGE. NO ODOR. RIGHT LATERAL ANKLE UNSTAGEABLE PRESSURE INJURY. MEASURES 5.5X1.5X0.3. WOUND IS NECROTIC. SMALL AMOUNT OF GRAYISH SUMMERS DRAINAGE. NO ODOR. RIGHT LATERAL MALLEOLUS STAGE 3 PRESSURE INJURY MEASURES 3X2.5X0.3. COVERED WITH YELLOW SLOUGH. MODERATE AMOUNT OF SEROSANGUINEOUS DRAINAGE NOTED. NO ODOR. RIGHT MEDIAL HEEL UNSTAGEABLE PRESSURE ULCER. MEASURES 3.4X2X4. THERE IS A SMALL AMOUNT OF RED GRANULATION TISSUE NOTED, BUT WOUND PROBES TO 4CM AND THERE IS NECROTIC TISSUE NOTED IN THE BASE OF THAT AREA. MODERATE AMOUNT OF SEROUS UNSTAGEABLE LEFT HIP PRESSURE INJURY. MEASURES 7.5X6X5. MILD ODOR. WOUND IS NECROTIC IN THE BASE. HOWEVER THERE IS SOME GRANULATION TISSUE NOTED. LARGE AMOUNT OF SEROSANGUINEOUS DRAINAGE. UNSTAGEABLE SACRAL PRESSURE INJURY. MEASURES 14X8X1. MODERATE AMOUNT OF SEROSANGUINEOUS DRAINAGE NOTED. NO ODOR. THERE IS A NECROTIC AREA AT 9 OCLOCK. LEFT FLANK UNSTAGEABLE PRESSURE INJURY MEASURES 4X3X0.3. COVERED WITH YELLOW SLOUGH. SMALL AMOUNT OF YELLOW DRAINAGE. S/P bedside debridement on 08/07/[address] Man: Topical 4% Lidocaine was applied to his right lateral leg, right lateral ankle and sacral pressure ulcers. His right lateral leg, right lateral ankle and sacral pressure ulcers were surgically, excisionally debrided of necrotic skin and SQ tissue with a curette, scissors, scalpel and forceps. Bleeding was minimal and was controlled with pressure. Final wound measurements are as noted below. Wounds were then dressed by the Wound Care nurseMelissa. Pt was repositioned right side down. Topical 4% Lidocaine was applied to all of the below wounds. His left hip ulcer was surgically, excisionally debrided of necrotic muscle, fascia and bone with scissors and forceps. The left hip joint was grossly exposed during this debridement. Bleeding was minimal and was controlled with pressure. Final wound measurements are as noted below. Pt's left heel ulcer was then surgically, excisionally debrided of necrotic SQ tissue and muscle with forceps and scalpel. Bleeding was minimal and was controlled with pressure. Final wound measurements are as noted below. Finally, pt's left back and right medial leg ulcers were surgically, excisionally debrided of necrotic skin and SQ tissue with a curette, scalpel and forceps. Bleeding was minimal and was controlled with pressure. Final wound measurements are as noted below. All of these wounds were then dressed by the Wound Care nurseMelissa. Pt tolerated the procedure wel 4) Chronic Alk phos elevation, transaminases also elevated this time probably from shock liver. 5) ?septic arthritis of left hip from decubitus ulcer: poor prognosis. Recs: Request Ethics committee evaluation - infection is incurable and only experimental drugs not available in the community may work temporary. As soon as drugs are stopped blood infection will come back. continue Tigecycline 50 mg q12 hrs until susceptibilities for Vabomere results D12 Continue Vabomere at 4gms IV every 8 hours total 14 days ending 08-20-18, D7 Multiple wound infections is incurable, further antibiotic therapy is futile and will only breed more resistance f/u Blood cultures for ID and RICARDO - still pending. I spoke with [employer] Discussed w Dr Irving Will follow Penny Bernardo MD Infectious Diseases [employer] [facility] ([facility]) M [phone] O [phone] Subjective Date of service: 08/14/18 Principal diagnosis: Chest Pain Interval history: Remains alert, communicating but unclear speech, no fever for 24h. ROS unable Objective - Exam Narrative Exam: General appearance: Alert in NAD, conversant Eyes: anicteric sclerae, moist conjunctivae; no lid-lag; PERRLA HENT: Atraumatic; oropharynx limited Neck: Trachea midline; supple, no thyromegaly or lymphadenopathy Lungs: CTA CV: RRR Abdomen: Soft, non-tender; PEG Extremities: contracted altaf Skin: per wound care eval--> LEFT HEEL UNSTAGEBALE PRESSURE INJURY. WOUND MEASURES 5X6.5X2. ESCHAR NOTED AROUND EDGES. MODERATE AMOUNT OF SLOUGH NOTED. THERE IS SOME PINK GRANULATION TISSUE. NO ODOR. MODERATE AMOUNT OF SEROSANGUINEOUS DRAINAGE. LEFT LATERAL MALLEOLUS NOTED TO HAVE A SCABBED AREA. SCANT DRAINAGE. LEFT KNEE WOUND ALMOST HEALED. SCANT DRAINAGE. RIGHT LATERAL GREAT TOE ESCHAR. MINIMAL BLEEDING FROM EDGES. MEASURES 2X1X0.1. RIGHT MEDIAL LOWER LEG PRESSURE STAGE 2 INJURY MEASURES 6.5X2.5X0.1. SMALL AMOUNT OF SEROSANGUINEOUS DRAINAGE NOTED. LEFT MEDIAL THIGH WOUND MEASURES 1X1.5X0.3. SMALL AMOUNT OF YELLOW DRAINAGE. NO ODOR. RIGHT LATERAL ANKLE UNSTAGEABLE PRESSURE INJURY. MEASURES 5.5X1.5X0.3. WOUND IS NECROTIC. SMALL AMOUNT OF GRAYISH SUMMERS DRAINAGE. NO ODOR. RIGHT LATERAL MALLEOLUS STAGE 3 PRESSURE INJURY MEASURES 3X2.5X0.3. COVERED WITH YELLOW SLOUGH. MODERATE AMOUNT OF SEROSANGUINEOUS DRAINAGE NOTED. NO ODOR. RIGHT MEDIAL HEEL UNSTAGEABLE PRESSURE ULCER. MEASURES 3.4X2X4. THERE IS A SMALL AMOUNT OF RED GRANULATION TISSUE NOTED, BUT WOUND PROBES TO 4CM AND THERE IS NEC ROTIC TISSUE NOTED IN THE BASE OF THAT AREA. MODERATE AMOUNT OF SEROUS UNSTAGEABLE LEFT HIP PRESSURE INJURY. MEASURES 7.5X6X5. MILD ODOR. WOUND IS NECROTIC IN THE BASE. HOWEVER THERE IS SOME GRANULATION TISSUE NOTED. LARGE AMOUNT OF SEROSANGUINEOUS DRAINAGE. UNSTAGEABLE SACRAL PRESSURE INJURY. MEASURES 14X8X1. MODERATE AMOUNT OF SEROSANGUINEOUS DRAINAGE NOTED. NO ODOR. THERE IS A NECROTIC AREA AT 9 OCLOCK. LEFT FLANK UNSTAGEABLE PRESSURE INJURY MEASURES 4X3X0.3. COVERED WITH YELLOW SLOUGH. SMALL AMOUNT OF YELLOW DRAINAGE. Patient now with a wound VAC to left hip - Constitutional Vitals: Vital Signs Temp Pulse Resp BP Pulse Ox 98.9 F 90 16 147/88 98 08/14/18 04:00 08/14/18 04:00 08/14/18 04:00 08/13/18 21:10 08/14/18 04:00 Temperature -Last 24 Hours Temperature 98.9 F Temperature 98.6 F Temperature 99.8 F Temperature 98.6 F Temperature 97.5 F - Labs CBC & Chem 7: 08/12/18 06:00 08/14/18 04:47 Labs: Abnormal lab results 08/13/18 08/13/18 08/14/18 Range/Units 08:01 12:00 04:47 Carbon Dioxide 21 L (22-30) mmol/L BUN 30 H 29 H (9-20) mg/dL Creatinine 0.5 L 0.4 L (0.8-1.5) mg/dL POC Glucose 64 L (70-105)
--- NOTE | 2018-08-14 09:36 | Progress Note ---
Assessment and Plan 1. Acute kidney injury: Vasomotor / hemodynamic MÓNICA in the setting of hypotension, sepsis and volume depletion. CT abdomen was negative for hydronephrosis. Renal function is better. Monitor renal function. Avoid nephrotoxic agents. Meds dosage based on GFR. 2. FEN: Hyperkalemia, improved. Metabolic acidosis. Edema, improving. Monitor lytes. 3. Sepsis with shock: Off pressors. 4. Anemia: S/p PRBC. 5. Multiple decubitus ulcers: S/p debridement. D/w his daughter at the bedside. Subjective Date of service: 08/14/18 Principal diagnosis: Chest Pain Interval history: Patient was seen and examined at the bedside. Objective - Vital Signs Vital signs: Vital Signs - 12hr 08/14/18 08/14/18 08/14/18 00:00 04:00 08:00 Temperature 98.6 F 98.9 F 98.3 F Pulse Rate 90 90 95 H Pulse Rate [ 86 90 95 H From Monitor] Respiratory 16 16 18 Rate O2 Sat by Pulse 98 98 95 Oximetry - General Appearance General appearance: well-developed, appears stated age, other (not in distress) EENT: ATNC, PERRL Respiratory: Present: Clear to Ascultation Cardiology: regular, S1S2, no murmurs Gastrointestinal: normoactive bowel sounds, no tenderness, other (PEG tube noted) Integumentary: ulcer, decubiti, other (dressing noted) Neurologic: other (alert, not following any command) Musculoskeletal: other (multiple contractures) - Lab 08/12/18 06:00 08/14/18 04:47 Most recent lab results Calcium 8.5 mg/dL (8.4-10.2) 08/14/18 04:47 Phosphorus 4.10 mg/dL (2.5-4.5) 07/31/18 04:25 Magnesium 1.80 mg/dL (1.7-2.3) 08/14/18 04:47 Urine Creatinine 27.3 mg/dL (0.1-20.0) H 07/31/18 Unknown Urine Sodium 99 mmol/L 07/31/18 Unknown Medications & Allergies - Medications Allergies/Adverse Reactions: Allergies tramadol Allergy (Verified 07/29/18 18:39) Unknown Home Medications: Home Medications Medication Instructions Recorded Confirmed Last Taken Type amLODIPine [Norvasc] 10 mg NGTUBE DAILY 06/02/16 07/30/18 Unknown History Multivit-Min/Iron Fum/Folic AC 1 each PO DAILY 03/24/18 07/30/18 Unknown History [Wbjgc-Gcfedtt-Wtaoqoxr Tablet] Carvedilol [Coreg] 6.25 mg PO Q12H 06/13/18 07/30/18 Unknown History Acetaminophen 650 mg NGTUBE Q6H PRN 07/30/18 07/30/18 Unknown History Apixaban [Eliquis] 2.5 mg PO Q12H 07/30/18 07/30/18 Unknown History AtorvaSTATin [Lipitor] 40 mg NGTUBE QHS 07/30/18 07/30/18 Unknown History Dutasteride 0.5 mg NGTUBE QAM 07/30/18 07/30/18 Unknown History Furosemide [Lasix TAB] 40 mg PO QDAY 07/30/18 07/30/18 Unknown History Ipratropium/Albuterol Sulfate 1 ampul IH BID 07/30/18 07/30/18 Unknown History [DUONEB *Not for PRN Use*] Lisinopril [Zestril TAB] 40 mg PO QDAY 07/30/18 07/30/18 Unknown History Oxycodone HCl/Acetaminophen 1 each PO Q8HR PRN 07/30/18 07/30/18 Unknown History [Percocet 7.5/325 mg] Tamsulosin [Flomax] 0.4 mg PO QDAY 07/30/18 07/30/18 Unknown History Vit C/Ascorbate Calcium,Sodium 500 mg NGTUBE BID 07/30/18 07/30/18 Unknown History [Vitamin C 500 mg/15 ml Liquid] Zinc Sulfate 220 mg NGTUBE QDAY 07/30/18 07/30/18 Unknown History diphenhydrAMINE [Benadryl CAP] 25 mg NGTUBE Q6H PRN 07/30/18 07/30/18 Unknown History levETIRAcetam [Keppra INJ] 500 mg PO Q12H 07/30/18 07/30/18 Unknown History Active Medications: Generic Name Dose Route Start Last Admin Trade Name Freq PRN Reason Stop Dose Admin Acetaminophen 650 mg 07/30/18 02:50 08/08/18 22:03 Tylenol PO 650 mg Q4H PRN Administration Pain MILD(1-3)/Fever >100.5/PRICE Lipase/Protease/Amylase 1 each 07/30/18 13:59 Pancrenomi Moore 10,500 Unit FEEDTUBE PRN PRN For Clogged Feeding Tube Ascorbic Acid 500 mg 07/30/18 10:00 08/13/18 21:09 Vitamin C PO 500 mg BID NORA Administration Atorvastatin Calcium 40 mg 08/04/18 22:00 08/13/18 21:10 Lipitor PO 40 mg QHS NORA Administration Carvedilol 3.125 mg 08/04/18 22:00 08/13/18 21:10 Coreg PO 3.125 mg BID NORA Administration Dextrose 50 ml 07/30/18 02:56 D50w (25gm) Syringe IV PRN PRN Hypoglycemia Hydrochlorothiazide 12.5 mg 08/12/18 19:22 08/13/18 10:24 Hctz PO 12.5 mg QDAY NORA Administration Tigecycline 50 mg/ Sodium 100 mls @ 100 mls/hr 08/03/18 22:00 08/14/18 02:34 Chloride IV 100 mls/hr Q12HR NORA Administration MEROPENEM/VABORBACTAM 4 gm/ 250 mls @ 90 mls/hr 08/11/18 22:00 08/14/18 08:03 Sodium Chloride IV 08/20/18 21:59 90 mls/hr Q8HR NORA Administration Insulin Human Regular 0 units 07/31/18 12:00 08/14/18 05:52 Humulin R SUB-Q Not Given Q6HR [facility] Protocol Levetiracetam 500 mg 07/30/18 06:00 08/14/18 05:51 Keppra PO 500 mg Q12H NORA Administration Ondansetron HCl 4 mg 07/30/18 02:50 Zofran IV Q8H PRN Nausea And Vomiting Simple Syrup 15 ml 07/30/18 13:59 Simple Syrup FEEDTUBE PRN PRN Hypoglycemia Simple Syrup 30 ml 07/30/18 13:59 Simple Syrup FEEDTUBE PRN PRN Hypoglycemia Sodium Bicarbonate 325 mg 07/30/18 13:59 Sodium Bicarbonate FEEDTUBE PRN PRN For Clogged Feeding Tube Sodium Chloride 10 ml 07/30/18 10:00 08/14/18 02:35 Sodium Chloride Flush Syringe 10 Ml IV 10 ml BID NORA Administration Sodium Chloride 10 ml 07/30/18 02:50 Sodium Chloride Flush Syringe 10 Ml IV PRN PRN LINE FLUSH Zinc Sulfate 220 mg 07/30/18 10:00 08/13/18 10:23 Zinc Sulfate PO 220 mg QDAY NORA Administration
[2018-08-14] MEDS ORDERED: POTASSIUM CHLORIDE FEEDTUBE NR (10:00)
[2018-08-14] MEDS: COREG PO SCH ×2 (11:05→21:18)
[2018-08-14] MEDS: ZINC SULFATE PO SCH (11:05)
[2018-08-14] MEDS: HCTZ PO SCH (11:05)
[2018-08-14] MEDS: VITAMIN C PO SCH ×2 (11:05→21:18)
[2018-08-14] MEDS ORDERED: XYLOCAINE TOPICAL 4% TP ONE (11:10)
--- NOTE | 2018-08-14 16:04 | Progress Note ---
Assessment and Plan Assessment and plan: Septic shock, source could be decubitus ulcer Bacteremia - Patient is currently on IV meropenem, and tigecycline based on the sensitivity -Culture is positive for Gram-negative rods and Streptococcus -ID consult appreciated -patient was treated with IV fluids and has swollen extremities, believe patient has fluid overload, getting better Septic arthritis - Could be due to decubitus ulcer - Continue IV antibiotics, orthopedics consulted Symptomatic anemia; last hemoglobin was 9.2, we'll continue to monitor Acute renal failure - Nephrology consulted, avoid nephrotoxins, IV fluids - Resolved Patient is bedbound, contracted extremities - Continue supportive care Multiple decubitus ulcer - on wound vac chest pain, chronic elevated troponin - Cardiology consulted and recommended conservative cardiac management DVT prophylaxis - SCDs because of severe anemia Disposition - I have discussed with ID, and recommend hospice and Id discussed with the family and they refused. I have a discussion with the family previously about hospice and family refused. He has been admitted many times previopusly and will not get better. I discussed with risk management Kari and need ethics committee to involve. History Interval history: Patient was seen and evaluated this morning, patient was alert and oriented, patient said he is not feeling well. Hospitalist Physical - Physical exam Narrative exam: Not in cardiopulmonary distress. The patient appeared well nourished and normally developed. Vital signs as documented. Head exam is unremarkable. No scleral icterus . Neck is without jugular venous distension, thyromegaly, or carotid bruits. Lungs are clear to auscultation. Cardiac exam reveals regular rate and Rhythm. First and second heart sounds normal. No murmurs, rubs or gallops. Abdominal exam reveals normal bowel sounds, no masses, no organomegaly and no aortic enlargement. Extremities contracted. Swollen. 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 - Constitutional Vitals: Temp Pulse Resp BP Pulse Ox 98.3 F 87 15 135/84 97 08/14/18 12:00 08/14/18 12:00 08/14/18 12:00 08/14/18 11:05 08/14/18 12:00 General appearance: Present: no acute distress, other (ill-looking) Results - Labs CBC & Chem 7: 08/12/18 06:00 08/14/18 04:47 Labs: Laboratory Last Values WBC 11.5 K/mm3 (4.5-11.0) H 08/12/18 06:00 RBC 3.16 M/mm3 (3.65-5.03) L 08/12/18 06:00 Hgb 9.2 gm/dl (11.8-15.2) L 08/12/18 06:00 Hct 26.7 % (35.5-45.6) L 08/12/18 06:00 MCV 84 fl (84-94) 08/12/18 06:00 MCH 29 pg (28-32) 08/12/18 06:00 MCHC 34 % (32-34) 08/12/18 06:00 RDW 17.7 % (13.2-15.2) H 08/12/18 06:00 Plt Count 598 K/mm3 (140-440) H 08/12/18 06:00 Lymph % (Auto) 11.1 % (13.4-35.0) L 08/12/18 06:00 Early % (Auto) 8.0 % (0.0-7.3) H 08/12/18 06:00 Eos % (Auto) 3.0 % (0.0-4.3) 08/12/18 06:00 Baso % (Auto) 1.1 % (0.0-1.8) 08/12/18 06:00 Lymph # 1.3 K/mm3 (1.2-5.4) 08/12/18 06:00 Early # 0.9 K/mm3 (0.0-0.8) H 08/12/18 06:00 Eos # 0.3 K/mm3 (0.0-0.4) 08/12/18 06:00 Baso # 0.1 K/mm3 (0.0-0.1) 08/12/18 06:00 Seg Neutrophils % 76.8 % (40.0-70.0) H 08/12/18 06:00 Seg Neutrophils # 8.8 K/mm3 (1.8-7.7) H 08/12/18 06:00 Sodium 137 mmol/L (137-145) 08/14/18 04:47 Potassium 3.7 mmol/L (3.6-5.0) 08/14/18 04:47 Chloride 103.2 mmol/L (98-107) 08/14/18 04:47 Carbon Dioxide 23 mmol/L (22-30) 08/14/18 04:47 Anion Gap 15 mmol/L 08/14/18 04:47 BUN 29 mg/dL (9-20) H 08/14/18 04:47 Creatinine 0.4 mg/dL (0.8-1.5) L 08/14/18 04:47 Estimated GFR > 60 ml/min 08/14/18 04:47 BUN/Creatinine Ratio 73 % 08/14/18 04:47 Glucose 99 mg/dL (75-100) 08/14/18 04:47 POC Glucose 83 (70-105) 08/14/18 13:08 Lactic Acid 1.60 mmol/L (0.7-2.0) 07/30/18 03:26 Calcium 8.5 mg/dL (8.4-10.2) 08/14/18 04:47 Phosphorus 4.10 mg/dL (2.5-4.5) 07/31/18 04:25 Magnesium 1.80 mg/dL (1.7-2.3) 08/14/18 04:47 Total Bilirubin 0.30 mg/dL (0.1-1.2) 08/05/18 03:54 Direct Bilirubin < 0.2 mg/dL (0-0.2) 08/05/18 03:54 AST 21 units/L (5-40) 08/05/18 03:54 ALT 26 units/L (7-56) 08/05/18 03:54 Alkaline Phosphatase 258 units/L (35-129) H 08/05/18 03:54 Troponin T 0.162 ng/mL (0.00-0.029) H* 08/01/18 05:45 Total Protein 6.1 g/dL (6.3-8.2) L 08/05/18 03:54 Albumin 1.5 g/dL (3.9-5) L 08/05/18 03:54 Albumin/Globulin Ratio 0.3 % 08/05/18 03:54 Triglycerides 130 mg/dL (2-149) 08/01/18 05:45 Cholesterol 83 mg/dL (50-199) 08/01/18 05:45 LDL Cholesterol Direct 12 mg/dL (50-130) L 08/01/18 05:45 HDL Cholesterol 17 mg/dL (40-59) L 08/01/18 05:45 Cholesterol/HDL Ratio 4.88 % 08/01/18 05:45 Urine Color Lula (Yellow) 07/29/18 21:33 Urine Turbidity Cloudy (Clear) 07/29/18 21:33 Urine pH 5.0 (5.0-7.0) 07/29/18 21:33 Ur Specific [place] 1.028 (1.003-1.030) 07/29/18 21:33 Urine Protein 100 mg/dl mg/dL (Negative) 07/29/18 21:33 Urine Glucose (UA) Neg mg/dL (Negative) 07/29/18 21: Urine Ketones Neg mg/dL (Negative) 07/29/18 21:33 Urine Blood Mod (Negative) 07/29/18 21:33 Urine Nitrite Neg (Negative) 07/29/18 21:33 Urine Bilirubin Neg (Negative) 07/29/18 21:33 Urine Urobilinogen 2.0 mg/dL (<2.0) 07/29/18 21:33 Ur Leukocyte Esterase Lg (Negative) 07/29/18 21:33 Urine WBC (Auto) > 182.0 /HPF (0.0-6.0) H 07/29/18 21:33 Urine RBC (Auto) > 182.0 /HPF (0.0-6.0) 07/29/18 21:33 Urine Bacteria (Auto) 4+ /HPF (Negative) 07/29/18 21:33 Urine WBC Clumps 3+ /HPF 07/29/18 21:33 Urine Mucus Few /HPF 07/29/18 21:33 Urine Eosinophils None seen (None Seen) 07/31/18 Unknown Urine Creatinine 27.3 mg/dL (0.1-20.0) H 07/31/18 Unknown Urine Sodium 99 mmol/L 07/31/18 Unknown Blood Type O POSITIVE 07/30/18 03:26 Antibody Screen Negative 07/30/18 03:26 Crossmatch See Detail 07/30/18 03:26 Active Medications - Current Medications Current Medications: Generic Name Dose Route Start Last Admin Trade Name Freq PRN Reason Stop Dose Admin Acetaminophen 650 mg 07/30/18 02:50 08/08/18 22:03 Tylenol PO 650 mg Q4H PRN Administration Pain MILD(1-3)/Fever >100.5/PRICE Lipase/Protease/Amylase 1 each 07/30/18 13:59 Pancrenomi Moore 10,500 Unit FEEDTUBE PRN PRN For Clogged Feeding Tube Ascorbic Acid 500 mg 07/30/18 10:00 08/14/18 11:05 Vitamin C PO 500 mg BID NORA Administration Atorvastatin Calcium 40 mg 08/04/18 22:00 08/13/18 21:10 Lipitor PO 40 mg QHS NORA Administration Carvedilol 3.125 mg 08/04/18 22:00 08/14/18 11:05 Coreg PO 3.125 mg BID NORA Administration Dextrose 50 ml 07/30/18 02:56 D50w (25gm) Syringe IV PRN PRN Hypoglycemia Hydrochlorothiazide 12.5 mg 08/12/18 19:22 08/14/18 11:05 Hctz PO 12.5 mg QDAY NORA Administration MEROPENEM/VABORBACTAM 4 gm/ 250 mls @ 90 mls/hr 08/11/18 22:00 08/14/18 14:01 Sodium Chloride IV 08/20/18 21:59 90 mls/hr Q8HR NORA Administration Insulin Human Regular 0 units 07/31/18 12:00 08/14/18 13:04 Humulin R SUB-Q Not Given Q6HR [facility] Protocol Levetiracetam 500 mg 07/30/18 06:00 08/14/18 05:51 Keppra PO 500 mg Q12H NORA Administration Ondansetron HCl 4 mg 07/30/18 02:50 Zofran IV Q8H PRN Nausea And Vomiting Simple Syrup 15 ml 07/30/18 13:59 Simple Syrup FEEDTUBE PRN PRN Hypoglycemia Simple Syrup 30 ml 07/30/18 13:59 Simple Syrup FEEDTUBE PRN PRN Hypoglycemia Sodium Bicarbonate 325 mg 07/30/18 13:59 Sodium Bicarbonate FEEDTUBE PRN PRN For Clogged Feeding Tube Sodium Chloride 10 ml 07/30/18 10:00 08/14/18 11:05 Sodium Chloride Flush Syringe 10 Ml IV 10 ml BID NORA Administration Sodium Chloride 10 ml 07/30/18 02:50 Sodium Chloride Flush Syringe 10 Ml IV PRN PRN LINE FLUSH Zinc Sulfate 220 mg 07/30/18 10:00 08/14/18 11:05 Zinc Sulfate PO 220 mg QDAY NORA Administration Nutrition/Malnutrition Assess - Dietary Evaluation Nutrition/Malnutrition Findings: Nutrition Notes Start: 07/30/18 09:58 Freq: Status: Active Protocol: Document 08/13/18 16:16 TW (Rec: 08/13/18 16:57 TW [email or web address]) Co-Sign 08/13/18 16:16 NHALL Nutrition Notes Initial or Follow up Brief Note Current Diagnosis Coronary Artery Disease, Decubitus(Pressure Ulcer), Diabetes,Hypertension,Heart Failure Other Pertinent Diagnosis Septic shock, UTI, Seizure D/O , anemia Current Diet Nepro at 50mL/hr Labs/Tests K 3.8 Pertinent Medications Reviewed Height 5 ft 10 in Weight 58.48 kg [place] Body Weight (kg) 75.45 BMI 18.5 Subjective/Other Information F/U for TF change/ tolerance. Noted Nepro running at 50mL/hr . Per RN, pt is tolerating TF. Percent of energy/protein needs met: 100%/100% Burn Absent Trauma Absent #1 Nutrition Diagnosis Malnutrition Diagnosis Progress(for reassessment Continues documentation) Is patient on ventilator? No Is Patient Ambulatory and/or Out of Bed No REE-([place]-confined to bed) 1639.092 Kcal/Kg value to use for calculation 35 Approximate Energy Requirements Using 2047 kcal/Kg Calculation Used for Recommendations Kcal/kg Additional Notes protein (1.5-2g/kg): 88-117g fluid: 1mL/kcal or per Nutrition Intervention Change Diet Order: TF Nutrition Support: Continue Nepro at 50ml/hr Flush with 220ml q4h Kcal 2,160 Protein (gm) 97 Fluid (mL) 872 Goal #1 TF tolerance Goal #2 TF to continue to meet 100% energy and pro needs Goal #3 Wt maintenance and/or gain Goal #4 Wound healing Anticipated Discharge Needs: TF Follow-Up By: 08/20/18 Additional Comments Follow for stable TF
[2018-08-15 05:24] LABS: BUN/Creatinine Ratio 85; Blood Urea Nitrogen 34 mg/dL (9-20); Calcium 8.7 mg/dL (8.4-10.2); Hemolysis Index 70
[2018-08-15] MEDS: VABOMERE 4 GM in NACL 0.9% 250ML 250 ML IV SCH (06:13)
[2018-08-15] MEDS: KEPPRA PO SCH ×2 (06:15→18:24)
[2018-08-15] MEDS: HumuLIN R SUB-Q SCH ×4 (06:16→18:24)
--- NOTE | 2018-08-15 08:51 | Procedure Note ---
Date of procedure: 08/14/18 Pre-op diagnosis: Multiple stage 2-4 decubitus pressure ulcers Post-op diagnosis: same Procedure: Debridement of multiple decubitus pressure ulcers (See below for details.) Description of procedure: Pt was placed right side down on his bed. 4% topical Lidocaine was applied to his multiple pressure ulcers. After approximately 20 minutes, his procedure was begun. His left hip pressure ulcer was surgically, excisionally debrided of necrotic bone with a currette. Bleeding was minimal and was controlled with pressure. His left back, sacral, bilateral heel, left lateral malleolus, bilateral great toes and right medial leg were surgically, excisionally debrided of necrotic skin and SQ tissue with a scalpel, forceps and a currette. Bleeding was minimal and was controlled with pressure. Pt tolerated the procedure well. Wounds were then dressed by the Wound Care nurse. Final wound measurements were as follows: 1) Left hip - 6 X 6 X 5 cm 2) Left back - 1.5 X 1.5 X 0.7 cm 3) Sacral - 9 X 12 X 1.5 cm 4) Left heel - 3 X 6 X 1.5 cm 5) Right heel - 3 X 1.5 X 1.5 cm 6) Left lateral malleolus - 2.5 X 1.5 X 0.7 cm 7) Left great toe - 3 X 1.5 X 1 cm 8) Right great toe - 3 X 1.5 X 1 cm 9) Right medial leg - 9 X 2.5 X 0.7 cm Anesthesia: other (Topical Lidocaine, 4%) Surgeon: FABRICIO WASHINGTON Estimated blood loss: minimal Pathology: none Specimen disposition: discarded Condition: stable Disposition: no change
[2018-08-15] MEDS: COREG PO SCH ×2 (09:58→23:28)
[2018-08-15] MEDS: VITAMIN C PO SCH ×2 (09:59→23:27)
[2018-08-15] MEDS: SODIUM CHLORIDE FLUSH SYRINGE 10 ML IV SCH ×2 (09:59→23:28)
[2018-08-15] MEDS: HCTZ PO SCH (09:59)
[2018-08-15] MEDS: MERREM 1,000 MG in NACL 0.9% 100 ML IV SCH ×2 (14:02→23:26)
[2018-08-15] MEDS: ZINC SULFATE PO SCH (14:03)
--- NOTE | 2018-08-15 16:08 | Progress Note ---
Assessment and Plan 1. Acute kidney injury: Vasomotor / hemodynamic MÓNICA in the setting of hypotension, sepsis and volume depletion. Renal function is better. Monitor renal function. Avoid nephrotoxic agents. Meds dosage based on GFR. 2. FEN: Hyperkalemia, improved. Metabolic acidosis. Edema, improving. Monitor lytes. 3. Sepsis with shock: Off pressors. Followed by ID. 4. Anemia: S/p PRBC. 5. Multiple decubitus ulcers: S/p debridement. Will see patient intermittently / as needed basis. Subjective Date of service: 08/15/18 Principal diagnosis: Chest Pain Interval history: Patient was seen and examined at the bedside. Objective - Vital Signs Vital signs: Vital Signs - 12hr 08/15/18 08/15/18 08/15/18 08:00 09:58 12:00 Temperature 97.8 F 98.4 F Pulse Rate 75 85 80 Blood Pressure 144/84 - General Appearance General appearance: well-developed, appears stated age, other (not in distress) EENT: ATNC, PERRL Respiratory: Present: Clear to Ascultation Cardiology: regular, S1S2 Gastrointestinal: normoactive bowel sounds, other (PEG tube noted) Integumentary: ulcer, decubiti, other (dressing noted) Neurologic: other (not following any command) Musculoskeletal: other (trace pedal edema noted) - Lab 08/12/18 06:00 08/15/18 04:15 Most recent lab results Calcium 8.7 mg/dL (8.4-10.2) 08/15/18 04:15 Phosphorus 4.10 mg/dL (2.5-4.5) 07/31/18 04:25 Magnesium 1.80 mg/dL (1.7-2.3) 08/14/18 04:47 Urine Creatinine 27.3 mg/dL (0.1-20.0) H 07/31/18 Unknown Urine Sodium 99 mmol/L 07/31/18 Unknown Medications & Allergies - Medications Allergies/Adverse Reactions: Allergies tramadol Allergy (Verified 07/29/18 18:39) Unknown Home Medications: Home Medications Medication Instructions Recorded Confirmed Last Taken Type amLODIPine [Norvasc] 10 mg NGTUBE DAILY 06/02/16 07/30/18 Unknown History Multivit-Min/Iron Fum/Folic AC 1 each PO DAILY 03/24/18 07/30/18 Unknown History [Gcynn-Nblpczb-Errcfkie Tablet] Carvedilol [Coreg] 6.25 mg PO Q12H 06/13/18 07/30/18 Unknown History Acetaminophen 650 mg NGTUBE Q6H PRN 07/30/18 07/30/18 Unknown History Apixaban [Eliquis] 2.5 mg PO Q12H 07/30/18 07/30/18 Unknown History AtorvaSTATin [Lipitor] 40 mg NGTUBE QHS 07/30/18 07/30/18 Unknown History Dutasteride 0.5 mg NGTUBE QAM 07/30/18 07/30/18 Unknown History Furosemide [Lasix TAB] 40 mg PO QDAY 07/30/18 07/30/18 Unknown History Ipratropium/Albuterol Sulfate 1 ampul IH BID 07/30/18 07/30/18 Unknown History [DUONEB *Not for PRN Use*] Lisinopril [Zestril TAB] 40 mg PO QDAY 07/30/18 07/30/18 Unknown History Oxycodone HCl/Acetaminophen 1 each PO Q8HR PRN 07/30/18 07/30/18 Unknown History [Percocet 7.5/325 mg] Tamsulosin [Flomax] 0.4 mg PO QDAY 07/30/18 07/30/18 Unknown History Vit C/Ascorbate Calcium,Sodium 500 mg NGTUBE BID 07/30/18 07/30/18 Unknown History [Vitamin C 500 mg/15 ml Liquid] Zinc Sulfate 220 mg NGTUBE QDAY 07/30/18 07/30/18 Unknown History diphenhydrAMINE [Benadryl CAP] 25 mg NGTUBE Q6H PRN 07/30/18 07/30/18 Unknown History levETIRAcetam [Keppra INJ] 500 mg PO Q12H 07/30/18 07/30/18 Unknown History Active Medications: Generic Name Dose Route Start Last Admin Trade Name Freq PRN Reason Stop Dose Admin Acetaminophen 650 mg 07/30/18 02:50 08/08/18 22:03 Tylenol PO 650 mg Q4H PRN Administration Pain MILD(1-3)/Fever >100.5/PRICE Lipase/Protease/Amylase 1 each 07/30/18 13:59 Pancreaze 10,500 Unit FEEDTUBE PRN PRN For Clogged Feeding Tube Ascorbic Acid 500 mg 07/30/18 10:00 08/15/18 09:59 Vitamin C PO 500 mg BID NORA Administration Atorvastatin Calcium 40 mg 08/04/18 22:00 08/14/18 21:18 Lipitor PO 40 mg QHS NORA Administration Carvedilol 3.125 mg 08/04/18 22:00 08/15/18 09:58 Coreg PO 3.125 mg BID NORA Administration Dextrose 50 ml 07/30/18 02:56 D50w (25gm) Syringe IV PRN PRN Hypoglycemia Hydrochlorothiazide 12.5 mg 08/12/18 19:22 08/15/18 09:59 Hctz PO 12.5 mg QDAY NORA Administration MEROPENEM/VABORBACTAM 4 gm/ 250 mls @ 90 mls/hr 08/16/18 14:00 Sodium Chloride IV 08/20/18 23:59 Q8HR NORA Meropenem 1,000 mg/ Sodium 100 mls @ 100 mls/hr 08/15/18 14:00 08/15/18 14:02 Chloride IV 08/16/18 10:00 100 mls/hr Q8HR NORA Administration Insulin Human Regular 0 units 07/31/18 12:00 08/15/18 12:30 Humulin R SUB-Q Not Given Q6HR [facility] Protocol Levetiracetam 500 mg 07/30/18 06:00 08/15/18 06:15 Keppra PO 500 mg Q12H NORA Administration Ondansetron HCl 4 mg 07/30/18 02:50 Zofran IV Q8H PRN Nausea And Vomiting Simple Syrup 15 ml 07/30/18 13:59 Simple Syrup FEEDTUBE PRN PRN Hypoglycemia Simple Syrup 30 ml 07/30/18 13:59 Simple Syrup FEEDTUBE PRN PRN Hypoglycemia Sodium Bicarbonate 325 mg 07/30/18 13:59 Sodium Bicarbonate FEEDTUBE PRN PRN For Clogged Feeding Tube Sodium Chloride 10 ml 07/30/18 10:00 08/15/18 09:59 Sodium Chloride Flush Syringe 10 Ml IV 10 ml BID NORA Administration Sodium Chloride 10 ml 07/30/18 02:50 Sodium Chloride Flush Syringe 10 Ml IV PRN PRN LINE FLUSH Zinc Sulfate 220 mg 07/30/18 10:00 08/15/18 14:03 Zinc Sulfate PO Not Given QDAY NORA
--- NOTE | 2018-08-15 16:51 | Progress Note ---
Assessment and Plan Assessment and plan: Septic shock, source could be decubitus ulcer Bacteremia - Patient is currently on IV meropenem, and tigecycline based on the sensitivity -ID consult appreciated Swelling of the extremities; resolved Septic arthritis - Could be due to decubitus ulcer - Continue IV antibiotics, orthopedics consulted Symptomatic anemia; transfused and H/H stable Acute renal failure - resolved Patient is bedbound, contracted extremities - Continue supportive care Multiple decubitus ulcer - on wound vac - Dr Man consulted and did debrodement chest pain, chronic elevated troponin - Cardiology consulted and recommended conservative cardiac management DVT prophylaxis - SCDs because of severe anemia Disposition - Patient has multiple admissions. ID said the infection will recur once he stop the antibiotics. Recommend hospice but the family refused. 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 History Interval history: Patient was seen and evaluated this morning, patient was alert and oriented, patient said he is not feeling well. Hospitalist Physical - Physical exam Narrative exam: Not in cardiopulmonary distress. The patient is malnurished. Vital signs as documented. Head exam is unremarkable. No scleral icterus . Neck is without jugular venous distension, thyromegaly, or carotid bruits. Lungs are clear to auscultation. Cardiac exam reveals regular rate and Rhythm. First and second heart sounds normal. No murmurs, rubs or gallops. Abdominal exam reveals normal bowel sounds, no masses, no organomegaly and no aortic enlargement. Extremities contracted. Swollen. [employer]: Contracted Skin; multiple decubitus ulcer present on admission, wound vac in place. - Constitutional Vitals: Temp Pulse Resp BP Pulse Ox 97.8 F 80 14 144/84 96 08/15/18 12:00 08/15/18 12:00 08/15/18 02:50 08/15/18 09:58 08/15/18 02:50 General appearance: Present: no acute distress, other (ill-looking) Results - Labs CBC & Chem 7: 08/12/18 06:00 08/15/18 04:15 Labs: Laboratory Last Values WBC 11.5 K/mm3 (4.5-11.0) H 08/12/18 06:00 RBC 3.16 M/mm3 (3.65-5.03) L 08/12/18 06:00 Hgb 9.2 gm/dl (11.8-15.2) L 08/12/18 06:00 Hct 26.7 % (35.5-45.6) L 08/12/18 06:00 MCV 84 fl (84-94) 08/12/18 06:00 MCH 29 pg (28-32) 08/12/18 06:00 MCHC 34 % (32-34) 08/12/18 06:00 RDW 17.7 % (13.2-15.2) H 08/12/18 06:00 Plt Count 598 K/mm3 (140-440) H 08/12/18 06:00 Lymph % (Auto) 11.1 % (13.4-35.0) L 08/12/18 06:00 [place] % (Auto) 8.0 % (0.0-7.3) H 08/12/18 06:00 Eos % (Auto) 3.0 % (0.0-4.3) 08/12/18 06:00 Baso % (Auto) 1.1 % (0.0-1.8) 08/12/18 06:00 Lymph # 1.3 K/mm3 (1.2-5.4) 08/12/18 06:00 [place] # 0.9 K/mm3 (0.0-0.8) H 08/12/18 06:00 Eos # 0.3 K/mm3 (0.0-0.4) 08/12/18 06:00 Baso # 0.1 K/mm3 (0.0-0.1) 08/12/18 06:00 Seg Neutrophils % 76.8 % (40.0-70.0) H 08/12/18 06:00 Seg Neutrophils # 8.8 K/mm3 (1.8-7.7) H 08/12/18 06:00 Sodium 137 mmol/L (137-145) 08/15/18 04:15 Potassium 4.5 mmol/L (3.6-5.0) D 08/15/18 04:15 Chloride 104.0 mmol/L (98-107) 08/15/18 04:15 Carbon Dioxide 22 mmol/L (22-30) 08/15/18 04:15 Anion Gap 16 mmol/L 08/15/18 04:15 BUN 34 mg/dL (9-20) H 08/15/18 04:15 Creatinine 0.4 mg/dL (0.8-1.5) L 08/15/18 04:15 Estimated GFR > 60 ml/min 08/15/18 04:15 BUN/Creatinine Ratio 85 % 08/15/18 04:15 Glucose 107 mg/dL (75-100) H 08/15/18 04:15 POC Glucose 98 (70-105) 08/15/18 06:28 Lactic Acid 1.60 mmol/L (0.7-2.0) 07/30/18 03:26 Calcium 8.7 mg/dL (8.4-10.2) 08/15/18 04:15 Phosphorus 4.10 mg/dL (2.5-4.5) 07/31/18 04:25 Magnesium 1.80 mg/dL (1.7-2.3) 08/14/18 04:47 Total Bilirubin 0.30 mg/dL (0.1-1.2) 08/05/18 03:54 Direct Bilirubin < 0.2 mg/dL (0-0.2) 08/05/18 03:54 AST 21 units/L (5-40) 08/05/18 03:54 ALT 26 units/L (7-56) 08/05/18 03:54 Alkaline Phosphatase 258 units/L (35-129) H 08/05/18 03:54 Troponin T 0.162 ng/mL (0.00-0.029) H* 08/01/18 05:45 Total Protein 6.1 g/dL (6.3-8.2) L 08/05/18 03:54 Albumin 1.5 g/dL (3.9-5) L 08/05/18 03:54 Albumin/Globulin Ratio 0.3 % 08/05/18 03:54 Triglycerides 130 mg/dL (2-149) 08/01/18 05:45 Cholesterol 83 mg/dL (50-199) 08/01/18 05:45 LDL Cholesterol Direct 12 mg/dL (50-130) L 08/01/18 05:45 HDL Cholesterol 17 mg/dL (40-59) L 08/01/18 05:45 Cholesterol/HDL Ratio 4.88 % 08/01/18 05:45 Urine Color [place] (Yellow) 07/29/18 21:33 Urine Turbidity Cloudy (Clear) 07/29/18 21:33 Urine pH 5.0 (5.0-7.0) 07/29/18 21:33 Ur Specific [place] 1.028 (1.003-1.030) 07/29/18 21:33 Urine Protein 100 mg/dl mg/dL (Negative) 07/29/18 21:33 Urine Glucose (UA) Neg mg/dL (Negative) 07/29/18 21:33 Urine Ketones Neg mg/dL (Negative) 07/29/18 21:33 Urine Blood Mod (Negative) 07/29/18 21:33 Urine Nitrite Neg (Negative) 07/29/18 21:33 Urine Bilirubin Neg (Negative) 07/29/18 21: Urine Urobilinogen 2.0 mg/dL (<2.0) 07/29/18 21:33 Ur Leukocyte Esterase Lg (Negative) 07/29/18 21:33 Urine WBC (Auto) > 182.0 /HPF (0.0-6.0) H 07/29/18 21:33 Urine RBC (Auto) > 182.0 /HPF (0.0-6.0) 07/29/18 21:33 Urine Bacteria (Auto) 4+ /HPF (Negative) 07/29/18 21:33 Urine WBC Clumps 3+ /HPF 07/29/18 21:33 Urine Mucus Few /HPF 07/29/18 21:33 Urine Eosinophils None seen (None Seen) 07/31/18 Unknown Urine Creatinine 27.3 mg/dL (0.1-20.0) H 07/31/18 Unknown Urine Sodium 99 mmol/L 07/31/18 Unknown Blood Type O POSITIVE 07/30/18 03:26 Antibody Screen Negative 07/30/18 03:26 Crossmatch See Detail 07/30/18 03:26 Active Medications - Current Medications Current Medications: Generic Name Dose Route Start Last Admin Trade Name Freq PRN Reason Stop Dose Admin Acetaminophen 650 mg 07/30/18 02:50 08/08/18 22:03 Tylenol PO 650 mg Q4H PRN Administration Pain MILD(1-3)/Fever >100.5/PRICE Lipase/Protease/Amylase 1 each 07/30/18 13:[address] 10,500 Unit FEEDTUBE PRN PRN For Clogged Feeding Tube Ascorbic Acid 500 mg 07/30/18 10:00 08/15/18 09:59 Vitamin C PO 500 mg BID NORA Administration Atorvastatin Calcium 40 mg 08/04/18 22:00 08/14/18 21:18 Lipitor PO 40 mg QHS NORA Administration Carvedilol 3.125 mg 08/04/18 22:00 08/15/18 09:58 Coreg PO 3.125 mg BID NORA Administration Dextrose 50 ml 07/30/18 02:56 D50w (25gm) Syringe IV PRN PRN Hypoglycemia Hydrochlorothiazide 12.5 mg 08/12/18 19:22 08/15/18 09:59 Hctz PO 12.5 mg QDAY [facility] Administration MEROPENEM/VABORBACTAM 4 gm/ 250 mls @ 90 mls/hr 08/16/18 14:00 Sodium Chloride IV 08/20/18 23:59 Q8HR NORA Meropenem 1,000 mg/ Sodium 100 mls @ 100 mls/hr 08/15/18 14:00 08/15/18 14:02 Chloride IV 08/16/18 10:00 100 mls/hr Q8HR [facility] Administration Insulin Human Regular 0 units 07/31/18 12:00 08/15/18 12:30 Humulin R SUB-Q Not Given Q6HR [facility] Protocol Levetiracetam 500 mg 07/30/18 06:00 08/15/18 06:15 Keppra PO 500 mg Q12H [facility] Administration Ondansetron HCl 4 mg 07/30/18 02:50 Zofran IV Q8H PRN Nausea And Vomiting Simple Syrup 15 ml 07/30/18 13:59 Simple Syrup FEEDTUBE PRN PRN Hypoglycemia Simple Syrup 30 ml 07/30/18 13:59 Simple Syrup FEEDTUBE PRN PRN Hypoglycemia Sodium Bicarbonate 325 mg 07/30/18 13:59 Sodium Bicarbonate FEEDTUBE PRN PRN For Clogged Feeding Tube Sodium Chloride 10 ml 07/30/18 10:00 08/15/18 09:59 Sodium Chloride Flush Syringe 10 Ml IV 10 ml BID NORA Administration Sodium Chloride 10 ml 07/30/18 02:50 Sodium Chloride Flush Syringe 10 Ml IV PRN PRN LINE FLUSH Zinc Sulfate 220 mg 07/30/18 10:00 08/15/18 14:03 Zinc Sulfate PO Not Given QDAY [facility] Nutrition/Malnutrition Assess - Dietary Evaluation Nutrition/Malnutrition Findings: Nutrition Notes Start: 07/30/18 09:58 Freq: Status: Active Protocol: Document 08/13/18 16:16 TW (Rec: 08/13/18 16:57 TW [email or web address]) Co-Sign 08/13/18 16:16 NHALL Nutrition Notes Initial or Follow up Brief Note Current Diagnosis Coronary Artery Disease, Decubitus(Pressure Ulcer), Diabetes,Hypertension,Heart Failure Other Pertinent Diagnosis Septic shock, UTI, Seizure D/O , anemia Current Diet Nepro at 50mL/hr Labs/Tests K 3.8 Pertinent Medications Reviewed Height 5 ft 10 in Weight 58.48 kg [place] Body Weight (kg) 75.45 BMI 18.5 Subjective/Other Information F/U for TF change/ tolerance. Noted Nepro running at 50mL/hr . Per RN, pt is tolerating TF. Percent of energy/protein needs met: 100%/100% Burn Absent Trauma Absent #1 Nutrition Diagnosis Malnutrition Diagnosis Progress(for reassessment Continues documentation) Is patient on ventilator? No Is Patient Ambulatory and/or Out of Bed No REE-([place]-confined to bed) 1639.092 Kcal/Kg value to use for calculation 35 Approximate Energy Requirements Using 2047 kcal/Kg Calculation Used for Recommendations Kcal/kg Additional Notes protein (1.5-2g/kg): 88-117g fluid: 1mL/kcal or per MD Nutrition Intervention Change Diet Order: TF Nutrition Support: Continue Nepro at 50ml/hr Flush with 220ml q4h Kcal 2,160 Protein (gm) 97 Fluid (mL) 872 Goal #1 TF tolerance Goal #2 TF to continue to meet 100% energy and pro needs Goal #3 Wt maintenance and/or gain Goal #4 Wound healing Anticipated Discharge Needs: TF Follow-Up By: 08/20/18 Additional Comments Follow for stable TF
[2018-08-16] MEDS: HumuLIN R SUB-Q SCH ×3 (06:14→18:21)
[2018-08-16] MEDS: KEPPRA PO SCH ×2 (06:21→18:10)
[2018-08-16] MEDS: MERREM 1,000 MG in NACL 0.9% 100 ML IV SCH (06:22)
--- NOTE | 2018-08-16 09:29 | Progress Note ---
Assessment and Plan Cultures: 07/29/2018 blood culture: E.coli, highly MDR, Proteus, beta hemolytic group G Streptococcus, Enterococcus Urine culture: mixed madeline 07/31/2018 blood culture: E. coli, 1 out of 4 bottles 08/06/2018: blood culture: no growth to date A/P: 67-year-old male who is a long-term resident who has been hospitalized multiple times to this hospital in the recent past. He has a history of stroke, dementia, CHF, COPD, diabetes, multiple chronic decubitus ulcers, indwelling Chaudhary catheter and multiple recurrent urinary tract infections, previous prostate abscess, hypertension was brought to the hospital this time with fevers and hypotension: 1) Septic shock secondary to polymicrobial bacteremia ESBL E coli, MDR Proteus, Strep and E faecalis: Source is probably multiple infected decubitus ulcers and less likely UTI. 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 Repeat blood cultures 08/06/2018 no growth to date. 2) UTI: Chaudhary was apparently exchanged in ED. Continue abx. 3) Extensive and multiple decubitus ulcers: Multiple hospitalizations in the recent past. Of note, during his last hospitalization in May 2018, patient was discharged with hospice. Unclear why he was rehospitalized, would strongly encourage hospice again. Continue wound care. Prognosis is extremely poor. LEFT HEEL UNSTAGEBALE PRESSURE INJURY. WOUND MEASURES 5X6.5X2. ESCHAR NOTED AROUND EDGES. MODERATE AMOUNT OF SLOUGH NOTED. THERE IS SOME PINK GRANULATION TISSUE. NO ODOR. MODERATE AMOUNT OF SEROSANGUINEOUS DRAINAGE. LEFT LATERAL MALLEOLUS NOTED TO HAVE A SCABBED AREA. SCANT DRAINAGE. LEFT KNEE WOUND ALMOST HEALED. SCANT DRAINAGE. RIGHT LATERAL GREAT TOE ESCHAR. MINIMAL BLEEDING FROM EDGES. MEASURES 2X1X0.1. RIGHT MEDIAL LOWER LEG PRESSURE STAGE 2 INJURY MEASURES 6.5X2.5X0.1. SMALL A MOUNT OF SEROSANGUINEOUS DRAINAGE NOTED. LEFT MEDIAL THIGH WOUND MEASURES 1X1.5X0.3. SMALL AMOUNT OF YELLOW DRAINAGE. NO ODOR. RIGHT LATERAL ANKLE UNSTAGEABLE PRESSURE INJURY. MEASURES 5.5X1.5X0.3. WOUND IS NECROTIC. SMALL AMOUNT OF GRAYISH SUMMERS DRAINAGE. NO ODOR. RIGHT LATERAL MALLEOLUS STAGE 3 PRESSURE INJURY MEASURES 3X2.5X0.3. COVERED WITH YELLOW SLOUGH. MODERATE AMOUNT OF SEROSANGUINEOUS DRAINAGE NOTED. NO ODOR. RIGHT MEDIAL HEEL UNSTAGEABLE PRESSURE ULCER. MEASURES 3.4X2X4. THERE IS A SMALL AMOUNT OF RED GRANULATION TISSUE NOTED, BUT WOUND PROBES TO 4CM AND THERE IS NECROTIC TISSUE NOTED IN THE BASE OF THAT AREA. MODERATE AMOUNT OF SEROUS UNSTAGEABLE LEFT HIP PRESSURE INJURY. MEASURES 7.5X6X5. MILD ODOR. WOUND IS NECROTIC IN THE BASE. HOWEVER THERE IS SOME GRANULATION TISSUE NOTED. LARGE AMOUNT OF SEROSANGUINEOUS DRAINAGE. UNSTAGEABLE SACRAL PRESSURE INJURY. MEASURES 14X8X1. MODERATE AMOUNT OF SEROSANGUINEOUS DRAINAGE NOTED. NO ODOR. THERE IS A NECROTIC AREA AT 9 OCLOCK. LEFT FLANK UNSTAGEABLE PRESSURE INJURY MEASURES 4X3X0.3. COVERED WITH YELLOW SLOUGH. SMALL AMOUNT OF YELLOW DRAINAGE. S/P bedside debridement on 08/07/[address] Man: Topical 4% Lidocaine was applied to his right lateral leg, right lateral ankle and sacral pressure ulcers. His right lateral leg, right lateral ankle and sacral pressure ulcers were surgically, excisionally debrided of necrotic skin and SQ tissue with a curette, scissors, scalpel and forceps. Bleeding was minimal and was controlled with pressure. Final wound measurements are as noted below. Wounds were then dressed by the Wound Care nurseMelissa. Pt was repositioned right side down. Topical 4% Lidocaine was applied to all of the below wounds. His left hip ulcer was surgically, excisionally debrided of necrotic muscle, fascia and bone with scissors and forceps. The left hip joint was grossly exposed during this debridement. Bleeding was minimal and was controlled with pressure. Final wound measurements are as noted below. Pt's left heel ulcer was then surgically, excisionally debrided of necrotic SQ tissue and muscle with forceps and scalpel. Bleeding was minimal and was controlled with pressure. Final wound measurements are as noted below. Finally, pt's left back and right medial leg ulcers were surgically, excisionally debrided of necrotic skin and SQ tissue with a curette, scalpel and forceps. Bleeding was minimal and was controlled with pressure. Final wound measurements are as noted below. All of these wounds were then dressed by the Wound Care nurseMelissa. Pt tolerated the procedure wel 4) Chronic Alk phos elevation, transaminases also elevated this time probably from shock liver. 5) ?septic arthritis of left hip from decubitus ulcer: poor prognosis. Recs: Request Ethics committee evaluation - infection is incurable and only experimental drugs not available in the community may work temporary. As soon as drugs are stopped blood infection will come back. completed Tigecycline 50 mg q12 hrsD12 on 08/14 Continue Vabomere at 4gms IV every 8 hours total 14 days ending 08-20-18, D9 (unfortunately pharmacy run out vabomere yesterday and it was replaced by meropenem until is back) Add gentamicin on the mean time until Vabomere is back Multiple wound infections is incurable, further antibiotic therapy is futile and will only breed more resistance [facility] RICARDO for E coli came back showed robles-resistant only sensitive to gentamicin/amikacyn, Vabomere MICs pending I am rounding this weekend Penny Bernardo MD Infectious Diseases Fitness/Wellness Director [facility] M [phone] O [phone] Subjective Date of service: 08/16/18 Principal diagnosis: Chest Pain Interval history: Remains alert, communicating but unclear speech, no fever since 08/12 ROS unable Objective - Exam Narrative Exam: General appearance: Alert in NAD, conversant Eyes: anicteric sclerae, moist conjunctivae; no lid-lag; PERRLA HENT: Atraumatic; oropharynx limited Neck: Trachea midline; supple, no thyromegaly or lymphadenopathy Lungs: CTA CV: RRR Abdomen: Soft, non-tender; PEG Extremities: contracted altaf Skin: per wound care eval--> LEFT HEEL UNSTAGEBALE PRESSURE INJURY. WOUND MEASURES 5X6.5X2. ESCHAR NOTED AROUND EDGES. MODERATE AMOUNT OF SLOUGH NOTED. THERE IS SOME PINK GRANULATION TISSUE. NO ODOR. MODERATE AMOUNT OF SEROSANGUINEOUS DRAINAGE. LEFT LATERAL MALLEOLUS NOTED TO HAVE A SCABBED AREA. SCANT DRAINAGE. LEFT KNEE WOUND ALMOST HEALED. SCANT DRAINAGE. RIGHT LATERAL GREAT TOE ESCHAR. MINIMAL BLEEDING FROM EDGES. MEASURES 2X1X0.1. RIGHT MEDIAL LOWER LEG PRESSURE STAGE 2 INJURY MEASURES 6.5X2.5X0.1. SMALL AMOUNT OF SEROSANGUINEOUS DRAINAGE NOTED. LEFT MEDIAL THIGH WOUND MEASURES 1X1.5X0.3. SMALL AMOUNT OF YELLOW DRAINAGE. NO ODOR. RIGHT LATERAL ANKLE UNSTAGEABLE PRESSURE INJURY. MEASURES 5.5X1.5X0.3. WOUND IS NECROTIC. SMALL AMOUNT OF GRAYISH SUMMERS DRAINAGE. NO ODOR. RIGHT LATERAL MALLEOLUS STAGE 3 PRESSURE INJURY MEASURES 3X2.5X0.3. COVERED WITH YELLOW SLOUGH. MODERATE AMOUNT OF SEROSANGUINEOUS DRAINAGE NOTED. NO ODOR. RIGHT MEDIAL HEEL UNSTAGEABLE PRESSURE ULCER. MEASURES 3.4X2X4. THERE IS A SMALL AMOUNT OF RED GRANULATION TISSUE NOTED, BUT WOUND PROBES TO 4CM AND THERE IS NECROTIC TISSUE NOTED IN THE BASE OF THAT AREA. MODERATE AMOUNT OF SEROUS UNSTAGEABLE LEFT HIP PRESSURE INJURY. MEASURES 7.5X6X5. MILD ODOR. WOUND IS NECROTIC IN THE BASE. HOWEVER THERE IS SOME GRANULATION TISSUE NOTED. LARGE AMOUNT OF SEROSANGUINEOUS DRAINAGE. UNSTAGEABLE SACRAL PRESSURE INJURY. MEASURES 14X8X1. MODERATE AMOUNT OF SEROSANGUINEOUS DRAINAGE NOTED. NO ODOR. THERE IS A NECROTIC AREA AT 9 OCLOCK. LEFT FLANK UNSTAGEABLE PRESSURE INJURY MEASURES 4X3X0.3. COVERED WITH YELLOW SLOUGH. SMALL AMOUNT OF YELLOW DRAINAGE. Patient with a wound VAC to left hip Femoral TLC - Constitutional Vitals: Vital Signs Temp Pulse Resp BP Pulse Ox 98.3 F 83 15 151/77 97 08/16/18 04:00 08/16/18 04:00 08/16/18 04:00 08/15/18 23:28 08/16/18 04:00 Temperature -Last 24 Hours Temperature 98.3 F Temperature 98.9 F Temperature 98.7 F Temperature 97.8 F Temperature 97.8 F Temperature 98.4 F Temperature 97.4 F - Labs CBC & Chem 7: 08/12/18 06:00 08/15/18 04:15
[2018-08-16] MEDS ORDERED: GENTAMICIN/NS 100 MG/100 ML 100 MG/100 ML BAG IV SCH (10:00)
[2018-08-16] MEDS: VITAMIN C PO SCH ×2 (10:40→23:32)
[2018-08-16] MEDS: HCTZ PO SCH (10:40)
[2018-08-16] MEDS: ZINC SULFATE PO SCH (10:41)
[2018-08-16] MEDS: COREG PO SCH ×2 (10:42→23:31)
[2018-08-16] MEDS: SODIUM CHLORIDE FLUSH SYRINGE 10 ML IV SCH ×2 (13:55→23:33)
[2018-08-16] MEDS: VABOMERE 4 GM in NACL 0.9% 250ML 250 ML IV SCH ×2 (14:36→23:31)
--- NOTE | 2018-08-16 16:05 | Progress Note ---
Assessment and Plan Assessment and plan: Septic shock, source could be decubitus ulcer Bacteremia - Patient is currently on IV meropenem, and tigecycline based on the sensitivity -ID consult appreciated Swelling of the extremities; resolved Septic arthritis - Could be due to decubitus ulcer - Continue IV antibiotics, orthopedics consulted Symptomatic anemia; transfused and H/H stable Acute renal failure - resolved Patient is bedbound, contracted extremities - Continue supportive care Multiple decubitus ulcer - on wound vac - Dr Man consulted and did debrodement chest pain, chronic elevated troponin - Cardiology consulted and recommended conservative cardiac management DVT prophylaxis - SCDs because of severe anemia Disposition - Patient has multiple admissions. ID said the infection will recur once he stop the antibiotics. Recommend hospice but the family refused. CM is working for LTAC placement. pending insurance authorization. History Interval history: Patient was seen and evaluated this morning, patient was alert and oriented, patient said he is ok. Hospitalist Physical - Physical exam Narrative exam: Not in cardiopulmonary distress. The patient is malnurished. Vital signs as documented. Head exam is unremarkable. No scleral icterus . Neck is without jugular venous distension, thyromegaly, or carotid bruits. Lungs are clear to auscultation. Cardiac exam reveals regular rate and Rhythm. First and second heart sounds normal. No murmurs, rubs or gallops. Abdominal exam reveals normal bowel sounds, no masses, no organomegaly and no aortic enlargement. Extremities contracted. Swollen. 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 - Constitutional Vitals: Temp Pulse Resp BP Pulse Ox 97.8 F 81 18 136/74 96 08/16/18 15:20 08/16/18 12:00 08/16/18 12:00 08/16/18 10:42 08/16/18 12:00 General appearance: Present: no acute distress, other (ill-looking) Results - Labs CBC & Chem 7: 08/12/18 06:00 08/15/18 04:15 Labs: Laboratory Last Values WBC 11.5 K/mm3 (4.5-11.0) H 08/12/18 06:00 RBC 3.16 M/mm3 (3.65-5.03) L 08/12/18 06:00 Hgb 9.2 gm/dl (11.8-15.2) L 08/12/18 06:00 Hct 26.7 % (35.5-45.6) L 08/12/18 06:00 MCV 84 fl (84-94) 08/12/18 06:00 MCH 29 pg (28-32) 08/12/18 06:00 MCHC 34 % (32-34) 08/12/18 06:00 RDW 17.7 % (13.2-15.2) H 08/12/18 06:00 Plt Count 598 K/mm3 (140-440) H 08/12/18 06:00 Lymph % (Auto) 11.1 % (13.4-35.0) L 08/12/18 06:00 [place] % (Auto) 8.0 % (0.0-7.3) H 08/12/18 06:00 Eos % (Auto) 3.0 % (0.0-4.3) 08/12/18 06:00 Baso % (Auto) 1.1 % (0.0-1.8) 08/12/18 06:00 Lymph # 1.3 K/mm3 (1.2-5.4) 08/12/18 06:00 [place] # 0.9 K/mm3 (0.0-0.8) H 08/12/18 06:00 Eos # 0.3 K/mm3 (0.0-0.4) 08/12/18 06:00 Baso # 0.1 K/mm3 (0.0-0.1) 08/12/18 06:00 Seg Neutrophils % 76.8 % (40.0-70.0) H 08/12/18 06:00 Seg Neutrophils # 8.8 K/mm3 (1.8-7.7) H 08/12/18 06:00 Sodium 137 mmol/L (137-145) 08/15/18 04:15 Potassium 4.5 mmol/L (3.6-5.0) D 08/15/18 04:15 Chloride 104.0 mmol/L (98-107) 08/15/18 04:15 Carbon Dioxide 22 mmol/L (22-30) 08/15/18 04:15 Anion Gap 16 mmol/L 08/15/18 04:15 BUN 34 mg/dL (9-20) H 08/15/18 04:15 Creatinine 0.4 mg/dL (0.8-1.5) L 08/15/18 04:15 Estimated GFR > 60 ml/min 08/15/18 04:15 BUN/Creatinine Ratio 85 % 08/15/18 04:15 Glucose 107 mg/dL (75-100) H 08/15/18 04:15 POC Glucose 106 (70-105) H 08/16/18 12:38 Lactic Acid 1.60 mmol/L (0.7-2.0) 07/30/18 03:26 Calcium 8.7 mg/dL (8.4-10.2) 08/15/18 04:15 Phosphorus 4.10 mg/dL (2.5-4.5) 07/31/18 04:25 Magnesium 1.80 mg/dL (1.7-2.3) 08/14/18 04:47 Total Bilirubin 0.30 mg/dL (0.1-1.2) 08/05/18 03:54 Direct Bilirubin < 0.2 mg/dL (0-0.2) 08/05/18 03:54 AST 21 units/L (5-40) 08/05/18 03:54 ALT 26 units/L (7-56) 08/05/18 03:54 Alkaline Phosphatase 258 units/L (35-129) H 08/05/18 03:54 Troponin T 0.162 ng/mL (0.00-0.029) H* 08/01/18 05:45 Total Protein 6.1 g/dL (6.3-8.2) L 08/05/18 03:54 Albumin 1.5 g/dL (3.9-5) L 08/05/18 03:54 Albumin/Globulin Ratio 0.3 % 08/05/18 03:54 Triglycerides 130 mg/dL (2-149) 08/01/18 05:45 Cholesterol 83 mg/dL (50-199) 08/01/18 05:45 LDL Cholesterol Direct 12 mg/dL (50-130) L 08/01/18 05:45 HDL Cholesterol 17 mg/dL (40-59) L 08/01/18 05:45 Cholesterol/HDL Ratio 4.88 % 08/01/18 05:45 Urine Color [place] (Yellow) 07/29/18 21:33 Urine Turbidity Cloudy (Clear) 07/29/18 21:33 Urine pH 5.0 (5.0-7.0) 07/29/18 21:33 Ur Specific [place] 1.028 (1.003-1.030) 07/29/18 21:33 Urine Protein 100 mg/dl mg/dL (Negative) 07/29/18 21:33 Urine Glucose (UA) Neg mg/dL (Negative) 07/29/18 21:33 Urine Ketones Neg mg/dL (Negative) 07/29/18 21:33 Urine Blood Mod (Negative) 07/29/18 21:33 Urine Nitrite Neg (Negative) 07/29/18 21:33 Urine Bilirubin Neg (Negative) 07/29/18 21:33 Urine Urobilinogen 2.0 mg/dL (<2.0) 07/29/18 21:33 Ur Leukocyte Esterase Lg (Negative) 07/29/18 21:33 Urine WBC (Auto) > 182.0 /HPF (0.0-6.0) H 07/29/18 21:33 Urine RBC (Auto) > 182.0 /HPF (0.0-6.0) 07/29/18 21:33 Urine Bacteria (Auto) 4+ /HPF (Negative) 07/29/18 21:33 Urine WBC Clumps 3+ /HPF 07/29/18 21:33 Urine Mucus Few /HPF 07/29/18 21:33 Urine Eosinophils None seen (None Seen) 07/31/18 Unknown Urine Creatinine 27.3 mg/dL (0.1-20.0) H 07/31/18 Unknown Urine Sodium 99 mmol/L 07/31/18 Unknown Blood Type O POSITIVE 07/30/18 03:26 Antibody Screen Negative 07/30/18 03:26 Crossmatch See Detail 07/30/18 03:26 Active Medications - Current Medications Current Medications: Generic Name Dose Route Start Last Admin Trade Name Freq PRN Reason Stop Dose Admin Acetaminophen 650 mg 07/30/18 02:50 08/08/18 22:03 Tylenol PO 650 mg Q4H PRN Administration Pain MILD(1-3)/Fever >100.5/PRICE Lipase/Protease/Amylase 1 each 07/30/18 13:[address] 10,500 Unit FEEDTUBE PRN PRN For Clogged Feeding Tube Ascorbic Acid 500 mg 07/30/18 10:00 08/16/18 10:40 Vitamin C PO 500 mg BID NORA Administration Atorvastatin Calcium 40 mg 08/04/18 22:00 08/15/18 23:29 Lipitor PO 40 mg QHS NORA Administration Carvedilol 3.125 mg 08/04/18 22:00 08/16/18 10:42 Coreg PO 3.125 mg BID NORA Administration Dextrose 50 ml 07/30/18 02:56 D50w (25gm) Syringe IV PRN PRN Hypoglycemia Hydrochlorothiazide 12.5 mg 08/12/18 19:22 08/16/18 10:40 Hctz PO 12.5 mg QDAY NORA Administration MEROPENEM/VABORBACTAM 4 gm/ 250 mls @ 90 mls/hr 08/16/18 14:00 08/16/18 14:36 Sodium Chloride IV 08/20/18 23:59 90 mls/hr Q8HR NORA Administration Insulin Human Regular 0 units 07/31/18 12:00 08/16/18 13:21 Humulin R SUB-Q Not Given Q6HR [facility] Protocol Levetiracetam 500 mg 07/30/18 06:00 08/16/18 06:21 Keppra PO 500 mg Q12H NORA Administration Ondansetron HCl 4 mg 07/30/18 02:50 Zofran IV Q8H PRN Nausea And Vomiting Simple Syrup 15 ml 07/30/18 13:59 Simple Syrup FEEDTUBE PRN PRN Hypoglycemia Simple Syrup 30 ml 07/30/18 13:59 Simple Syrup FEEDTUBE PRN PRN Hypoglycemia Sodium Bicarbonate 325 mg 07/30/18 13:59 Sodium Bicarbonate FEEDTUBE PRN PRN For Clogged Feeding Tube Sodium Chloride 10 ml 07/30/18 10:00 08/16/18 13:55 Sodium Chloride Flush Syringe 10 Ml IV 10 ml BID NORA Administration Sodium Chloride 10 ml 07/30/18 02:50 Sodium Chloride Flush Syringe 10 Ml IV PRN PRN LINE FLUSH Zinc Sulfate 220 mg 07/30/18 10:00 08/16/18 10:41 Zinc Sulfate PO 220 mg QDAY NORA Administration Nutrition/Malnutrition Assess - Dietary Evaluation Nutrition/Malnutrition Findings: Nutrition Notes Start: 07/30/18 09:58 Freq: Status: Active Protocol: Document 08/13/18 16:16 TW (Rec: 08/13/18 16:57 TW [email or web address]) Co-Sign 08/13/18 16:16 NHALL Nutrition Notes Initial or Follow up Brief Note Current Diagnosis Coronary Artery Disease, Decubitus(Pressure Ulcer), Diabetes,Hypertension,Heart Failure Other Pertinent Diagnosis Septic shock, UTI, Seizure D/O , anemia Current Diet Nepro at 50mL/hr Labs/Tests K 3.8 Pertinent Medications Reviewed Height 5 ft 10 in Weight 58.48 kg [place] Body Weight (kg) 75.45 BMI 18.5 Subjective/Other Information F/U for TF change/ tolerance. Noted Nepro running at 50mL/hr . Per RN, pt is tolerating TF. Percent of energy/protein needs met: 100%/100% Burn Absent Trauma Absent #1 Nutrition Diagnosis Malnutrition Diagnosis Progress(for reassessment Continues documentation) Is patient on ventilator? No Is Patient Ambulatory and/or Out of Bed No REE-([place]-St. Jeor-confined to bed) 1639.092 Kcal/Kg value to use for calculation 35 Approximate Energy Requirements Using 2047 kcal/Kg Calculation Used for Recommendations Kcal/kg Additional Notes protein (1.5-2g/kg): 88-117g fluid: 1mL/kcal or per MD Nutrition Intervention Change Diet Order: TF Nutrition Support: Continue Nepro at 50ml/hr Flush with 220ml q4h Kcal 2,160 Protein (gm) 97 Fluid (mL) 872 Goal #1 TF tolerance Goal #2 TF to continue to meet 100% energy and pro needs Goal #3 Wt maintenance and/or gain Goal #4 Wound healing Anticipated Discharge Needs: TF Follow-Up By: 08/20/18 Additional Comments Follow for stable TF
[2018-08-17] MEDS: KEPPRA PO SCH ×2 (06:01→17:39)
[2018-08-17] MEDS: VABOMERE 4 GM in NACL 0.9% 250ML 250 ML IV SCH ×3 (06:48→22:20)
[2018-08-17] MEDS: COREG PO SCH ×2 (11:25→22:19)
[2018-08-17] MEDS: VITAMIN C PO SCH ×2 (11:26→22:19)
[2018-08-17] MEDS: HCTZ PO SCH (11:26)
[2018-08-17] MEDS: SODIUM CHLORIDE FLUSH SYRINGE 10 ML IV SCH ×2 (11:27→22:20)
[2018-08-17] MEDS: ZINC SULFATE PO SCH (11:27)
--- NOTE | 2018-08-17 13:21 | Progress Note ---
Assessment and Plan Assessment and plan: Septic shock, source could be decubitus ulcer Bacteremia - Patient is currently on IV meropenem, and tigecycline based on the sensitivity -ID consult appreciated Swelling of the extremities; resolved Septic arthritis - Could be due to decubitus ulcer - Continue IV antibiotics, orthopedics consulted Symptomatic anemia; transfused and H/H stable Acute renal failure - resolved Patient is bedbound, contracted extremities - Continue supportive care Multiple decubitus ulcer - on wound vac - Dr Man consulted and did debrodement chest pain, chronic elevated troponin - Cardiology consulted and recommended conservative cardiac management DVT prophylaxis - SCDs because of severe anemia Disposition - Patient has multiple admissions. ID said the infection will recur once he stop the antibiotics. Recommend hospice but the family refused. CM is working for LTAC placement. pending insurance authorization. History Interval history: Patient was seen and evaluated this morning, patient was alert and oriented, patient said he is ok. Hospitalist Physical - Physical exam Narrative exam: Not in cardiopulmonary distress. The patient is malnurished. Vital signs as documented. Head exam is unremarkable. No scleral icterus . Neck is without jugular venous distension, thyromegaly, or carotid bruits. Lungs are clear to auscultation. Cardiac exam reveals regular rate and Rhythm. First and second heart sounds normal. No murmurs, rubs or gallops. Abdominal exam reveals normal bowel sounds, no masses, no organomegaly and no aortic enlargement. Extremities contracted. Swollen. 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 - Constitutional Vitals: Temp Pulse Resp BP Pulse Ox 98.6 F 87 17 155/94 84 08/17/18 12:00 08/17/18 12:00 08/17/18 12:00 08/17/18 11:25 08/17/18 12:00 General appearance: Present: no acute distress, other (ill-looking) Results - Labs CBC & Chem 7: 08/12/18 06:00 08/15/18 04:15 Labs: Laboratory Last Values WBC 11.5 K/mm3 (4.5-11.0) H 08/12/18 06:00 RBC 3.16 M/mm3 (3.65-5.03) L 08/12/18 06:00 Hgb 9.2 gm/dl (11.8-15.2) L 08/12/18 06:00 Hct 26.7 % (35.5-45.6) L 08/12/18 06:00 MCV 84 fl (84-94) 08/12/18 06:00 MCH 29 pg (28-32) 08/12/18 06:00 MCHC 34 % (32-34) 08/12/18 06:00 RDW 17.7 % (13.2-15.2) H 08/12/18 06:00 Plt Count 598 K/mm3 (140-440) H 08/12/18 06:00 Lymph % (Auto) 11.1 % (13.4-35.0) L 08/12/18 06:00 [place] % (Auto) 8.0 % (0.0-7.3) H 08/12/18 06:00 Eos % (Auto) 3.0 % (0.0-4.3) 08/12/18 06:00 Baso % (Auto) 1.1 % (0.0-1.8) 08/12/18 06:00 Lymph # 1.3 K/mm3 (1.2-5.4) 08/12/18 06:00 [place] # 0.9 K/mm3 (0.0-0.8) H 08/12/18 06:00 Eos # 0.3 K/mm3 (0.0-0.4) 08/12/18 06:00 Baso # 0.1 K/mm3 (0.0-0.1) 08/12/18 06:00 Seg Neutrophils % 76.8 % (40.0-70.0) H 08/12/18 06:00 Seg Neutrophils # 8.8 K/mm3 (1.8-7.7) H 08/12/18 06:00 Sodium 137 mmol/L (137-145) 08/15/18 04:15 Potassium 4.5 mmol/L (3.6-5.0) D 08/15/18 04:15 Chloride 104.0 mmol/L (98-107) 08/15/18 04:15 Carbon Dioxide 22 mmol/L (22-30) 08/15/18 04:15 Anion Gap 16 mmol/L 08/15/18 04:15 BUN 34 mg/dL (9-20) H 08/15/18 04:15 Creatinine 0.4 mg/dL (0.8-1.5) L 08/15/18 04:15 Estimated GFR > 60 ml/min 08/15/18 04:15 BUN/Creatinine Ratio 85 % 08/15/18 04:15 Glucose 107 mg/dL (75-100) H 08/15/18 04:15 POC Glucose 91 (70-105) 08/17/18 12:07 Lactic Acid 1.60 mmol/L (0.7-2.0) 07/30/18 03:26 Calcium 8.7 mg/dL (8.4-10.2) 08/15/18 04:15 Phosphorus 4.10 mg/dL (2.5-4.5) 07/31/18 04:25 Magnesium 1.80 mg/dL (1.7-2.3) 08/14/18 04:47 Total Bilirubin 0.30 mg/dL (0.1-1.2) 08/05/18 03:54 Direct Bilirubin < 0.2 mg/dL (0-0.2) 08/05/18 03:54 AST 21 units/L (5-40) 08/05/18 03:54 ALT 26 units/L (7-56) 08/05/18 03:54 Alkaline Phosphatase 258 units/L (35-129) H 08/05/18 03:54 Troponin T 0.162 ng/mL (0.00-0.029) H* 08/01/18 05:45 Total Protein 6.1 g/dL (6.3-8.2) L 08/05/18 03:54 Albumin 1.5 g/dL (3.9-5) L 08/05/18 03:54 Albumin/Globulin Ratio 0.3 % 08/05/18 03:54 Triglycerides 130 mg/dL (2-149) 08/01/18 05:45 Cholesterol 83 mg/dL (50-199) 08/01/18 05:45 LDL Cholesterol Direct 12 mg/dL (50-130) L 08/01/18 05:45 HDL Cholesterol 17 mg/dL (40-59) L 08/01/18 05:45 Cholesterol/HDL Ratio 4.88 % 08/01/18 05:45 Urine Color [place] (Yellow) 07/29/18 21:33 Urine Turbidity Cloudy (Clear) 07/29/18 21:33 Urine pH 5.0 (5.0-7.0) 07/29/18 21:33 Ur Specific [place] 1.028 (1.003-1.030) 07/29/18 21:33 Urine Protein 100 mg/dl mg/dL (Negative) 07/29/18 21:33 Urine Glucose (UA) Neg mg/dL (Negative) 07/29/18 21: Urine Ketones Neg mg/dL (Negative) 07/29/18 21:33 Urine Blood Mod (Negative) 07/29/18 21:33 Urine Nitrite Neg (Negative) 07/29/18 21:33 Urine Bilirubin Neg (Negative) 07/29/18 21: Urine Urobilinogen 2.0 mg/dL (<2.0) 07/29/18 21:33 Ur Leukocyte Esterase Lg (Negative) 07/29/18 21:33 Urine WBC (Auto) > 182.0 /HPF (0.0-6.0) H 07/29/18 21:33 Urine RBC (Auto) > 182.0 /HPF (0.0-6.0) 07/29/18 21:33 Urine Bacteria (Auto) 4+ /HPF (Negative) 07/29/18 21:33 Urine WBC Clumps 3+ /HPF 07/29/18 21:33 Urine Mucus Few /HPF 07/29/18 21:33 Urine Eosinophils None seen (None Seen) 07/31/18 Unknown Urine Creatinine 27.3 mg/dL (0.1-20.0) H 07/31/18 Unknown Urine Sodium 99 mmol/L 07/31/18 Unknown Blood Type O POSITIVE 07/30/18 03:26 Antibody Screen Negative 07/30/18 03:26 Crossmatch See Detail 07/30/18 03:26 Active Medications - Current Medications Current Medications: Generic Name Dose Route Start Last Admin Trade Name Freq PRN Reason Stop Dose Admin Acetaminophen 650 mg 07/30/18 02:50 08/08/18 22:03 Tylenol PO 650 mg Q4H PRN Administration Pain MILD(1-3)/Fever >100.5/PRICE Lipase/Protease/Amylase 1 each 07/30/18 13:[address] 10,500 Unit FEEDTUBE PRN PRN For Clogged Feeding Tube Ascorbic Acid 500 mg 07/30/18 10:00 08/17/18 11:26 Vitamin C PO 500 mg BID NORA Administration Atorvastatin Calcium 40 mg 08/04/18 22:00 08/16/18 23:32 Lipitor PO 40 mg QHS NORA Administration Carvedilol 3.125 mg 08/04/18 22:00 08/17/18 11:25 Coreg PO 3.125 mg BID NORA Administration Dextrose 50 ml 07/30/18 02:56 D50w (25gm) Syringe IV PRN PRN Hypoglycemia Hydrochlorothiazide 12.5 mg 08/12/18 19:22 08/17/18 11:26 Hctz PO 12.5 mg QDAY NORA Administration MEROPENEM/VABORBACTAM 4 gm/ 250 mls @ 90 mls/hr 08/16/18 14:00 08/17/18 06:48 Sodium Chloride IV 08/20/18 23:59 90 mls/hr Q8HR NORA Administration Insulin Human Regular 0 units 07/31/18 12:00 08/16/18 18:21 Humulin R SUB-Q Not Given Q6HR [facility] Protocol Levetiracetam 500 mg 07/30/18 06:00 08/17/18 06:01 Keppra PO 500 mg Q12H NORA Administration Ondansetron HCl 4 mg 07/30/18 02:50 Zofran IV Q8H PRN Nausea And Vomiting Simple Syrup 15 ml 07/30/18 13:59 Simple Syrup FEEDTUBE PRN PRN Hypoglycemia Simple Syrup 30 ml 07/30/18 13:59 Simple Syrup FEEDTUBE PRN PRN Hypoglycemia Sodium Bicarbonate 325 mg 07/30/18 13:59 Sodium Bicarbonate FEEDTUBE PRN PRN For Clogged Feeding Tube Sodium Chloride 10 ml 07/30/18 10:00 08/17/18 11:27 Sodium Chloride Flush Syringe 10 Ml IV 10 ml BID NORA Administration Sodium Chloride 10 ml 07/30/18 02:50 Sodium Chloride Flush Syringe 10 Ml IV PRN PRN LINE FLUSH Zinc Sulfate 220 mg 07/30/18 10:00 08/17/18 11:27 Zinc Sulfate PO 220 mg QDAY NORA Administration Nutrition/Malnutrition Assess - Dietary Evaluation Nutrition/Malnutrition Findings: Nutrition Notes Start: 07/30/18 0 9:58 Freq: Status: Active Protocol: Document 08/13/18 16:16 TW (Rec: 08/13/18 16:57 TW [email or web address]) Co-Sign 08/13/18 16:16 NHALL Nutrition Notes Initial or Follow up Brief Note Current Diagnosis Coronary Artery Disease, Decubitus(Pressure Ulcer), Diabetes,Hypertension,Heart Failure Other Pertinent Diagnosis Septic shock, UTI, Seizure D/O , anemia Current Diet Nepro at 50mL/hr Labs/Tests K 3.8 Pertinent Medications Reviewed Height 5 ft 10 in Weight 58.48 kg [place] Body Weight (kg) 75.45 BMI 18.5 Subjective/Other Information F/U for TF change/ tolerance. Noted Nepro running at 50mL/hr . Per RN, pt is tolerating TF. Percent of energy/protein needs met: 100%/100% Burn Absent Trauma Absent #1 Nutrition Diagnosis Malnutrition Diagnosis Progress(for reassessment Continues documentation) Is patient on ventilator? No Is Patient Ambulatory and/or Out of Bed No REE-([place]-St. Jeor-confined to bed) 1639.092 Kcal/Kg value to use for calculation 35 Approximate Energy Requirements Using 2047 kcal/Kg Calculation Used for Recommendations Kcal/kg Additional Notes protein (1.5-2g/kg): 88-117g fluid: 1mL/kcal or per MD Nutrition Intervention Change Diet Order: TF Nutrition Support: Continue Nepro at 50ml/hr Flush with 220ml q4h Kcal 2,160 Protein (gm) 97 Fluid (mL) 872 Goal #1 TF tolerance Goal #2 TF to continue to meet 100% energy and pro needs Goal #3 Wt maintenance and/or gain Goal #4 Wound healing Anticipated Discharge Needs: TF Follow-Up By: 08/20/18 Additional Comments Follow for stable TF
[2018-08-17] MEDS: HumuLIN R SUB-Q SCH (15:08)
[2018-08-17] MEDS: TYLENOL PO PRN ×2 (17:38→22:19)
[2018-08-18] MEDS: HumuLIN R SUB-Q SCH ×3 (00:04→14:26)
[2018-08-18] MEDS: VABOMERE 4 GM in NACL 0.9% 250ML 250 ML IV SCH ×3 (05:29→22:57)
[2018-08-18] MEDS: VITAMIN C PO SCH ×2 (09:34→22:57)
[2018-08-18] MEDS: COREG PO SCH ×2 (09:34→22:57)
[2018-08-18] MEDS: HCTZ PO SCH (09:34)
[2018-08-18] MEDS: KEPPRA PO SCH ×2 (09:34→17:47)
[2018-08-18] MEDS: ZINC SULFATE PO SCH (09:35)
[2018-08-18] MEDS: SODIUM CHLORIDE FLUSH SYRINGE 10 ML IV SCH ×2 (09:35→22:58)
--- NOTE | 2018-08-18 13:18 | Progress Note ---
Assessment and Plan Assessment and plan: Septic shock, source could be decubitus ulcer Bacteremia - Patient is currently on IV meropenem will continue 08/20, and was treated with tigecycline for 12 days stopped on 08/14 -ID consult appreciated Swelling of the extremities; resolved Septic arthritis - Could be due to decubitus ulcer - Continue IV antibiotics, orthopedics consulted Symptomatic anemia; transfused and H/H stable Acute renal failure - resolved Patient is bedbound, contracted extremities - Continue supportive care Multiple decubitus ulcer - on wound vac - Dr Man consulted and did debrodement chest pain, chronic elevated troponin - Cardiology consulted and recommended conservative cardiac management DVT prophylaxis - SCDs because of severe anemia Disposition - Patient has multiple admissions. ID said the infection will recur once he stop the antibiotics. Recommend hospice but the family refused. CM is working for LTAC placement. pending insurance authorization. Microbiology 07/29/18 18:53 Peripheral/Venous Blood Culture - Final Enterococcus Faecalis Escherichia Coli Escherichia Coli#2 Streptococcus Not Group D 07/29/18 18:50 Peripheral/Venous Blood Culture - Preliminary Beta Hemoltyic Strep Group G Proteus Mirabilis Proteus Mirabilis#2 07/30/18 Unknown Urine,Catheterized - Indwelling Catheter Urine Culture - Final 07/31/18 18:12 Stool Stool Occult Blood (RICARDO) - Final History Interval history: Patient was seen and evaluated this morning, patient was alert and oriented, patient said he is ok. Hospitalist Physical - Physical exam Narrative exam: Not in cardiopulmonary distress. The patient is malnurished. Vital signs as documented. Head exam is unremarkable. No scleral icterus . Neck is without jugular venous distension, thyromegaly, or carotid bruits. Lungs are clear to auscultation. Cardiac exam reveals regular rate and Rhythm. First and second heart sounds normal. No murmurs, rubs or gallops. Abdominal exam reveals normal bowel sounds, no masses, no organomegaly and no aortic enlargement. Extremities contracted. Swollen. 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 - Constitutional Vitals: Temp Pulse Resp BP Pulse Ox 100.3 F H 111 H 22 125/83 93 08/18/18 12:00 08/18/18 10:00 08/18/18 10:00 08/18/18 10:00 08/18/18 10:00 General appearance: Present: no acute distress, other (ill-looking) Results - Labs CBC & Chem 7: 08/12/18 06:00 08/15/18 04:15 Labs: Laboratory Last Values WBC 11.5 K/mm3 (4.5-11.0) H 08/12/18 06:00 RBC 3.16 M/mm3 (3.65-5.03) L 08/12/18 06:00 Hgb 9.2 gm/dl (11.8-15.2) L 08/12/18 06:00 Hct 26.7 % (35.5-45.6) L 08/12/18 06:00 MCV 84 fl (84-94) 08/12/18 06:00 MCH 29 pg (28-32) 08/12/18 06:00 MCHC 34 % (32-34) 08/12/18 06:00 RDW 17.7 % (13.2-15.2) H 08/12/18 06:00 Plt Count 598 K/mm3 (140-440) H 08/12/18 06:00 Lymph % (Auto) 11.1 % (13.4-35.0) L 08/12/18 06:00 Ritchie % (Auto) 8.0 % (0.0-7.3) H 08/12/18 06:00 Eos % (Auto) 3.0 % (0.0-4.3) 08/12/18 06:00 Baso % (Auto) 1.1 % (0.0-1.8) 08/12/18 06:00 Lymph # 1.3 K/mm3 (1.2-5.4) 08/12/18 06:00 Ritchie # 0.9 K/mm3 (0.0-0.8) H 08/12/18 06:00 Eos # 0.3 K/mm3 (0.0-0.4) 08/12/18 06:00 Baso # 0.1 K/mm3 (0.0-0.1) 08/12/18 06:00 Seg Neutrophils % 76.8 % (40.0-70.0) H 08/12/18 06:00 Seg Neutrophils # 8.8 K/mm3 (1.8-7.7) H 08/12/18 06:00 Sodium 137 mmol/L (137-145) 08/15/18 04:15 Potassium 4.5 mmol/L (3.6-5.0) D 08/15/18 04:15 Chloride 104.0 mmol/L (98-107) 08/15/18 04:15 Carbon Dioxide 22 mmol/L (22-30) 08/15/18 04:15 Anion Gap 16 mmol/L 08/15/18 04:15 BUN 34 mg/dL (9-20) H 08/15/18 04:15 Creatinine 0.4 mg/dL (0.8-1.5) L 08/15/18 04:15 Estimated GFR > 60 ml/min 08/15/18 04:15 BUN/Creatinine Ratio 85 % 08/15/18 04:15 Glucose 107 mg/dL (75-100) H 08/15/18 04:15 POC Glucose 109 (70-105) H 08/18/18 12:06 Lactic Acid 1.60 mmol/L (0.7-2.0) 07/30/18 03:26 Calcium 8.7 mg/dL (8.4-10.2) 08/15/18 04:15 Phosphorus 4.10 mg/dL (2.5-4.5) 07/31/18 04:25 Magnesium 1.80 mg/dL (1.7-2.3) 08/14/18 04:47 Total Bilirubin 0.30 mg/dL (0.1-1.2) 08/05/18 03:54 Direct Bilirubin < 0.2 mg/dL (0-0.2) 08/05/18 03:54 AST 21 units/L (5-40) 08/05/18 03:54 ALT 26 units/L (7-56) 08/05/18 03:54 Alkaline Phosphatase 258 units/L (35-129) H 08/05/18 03:54 Troponin T 0.162 ng/mL (0.00-0.029) H* 08/01/18 05:45 Total Protein 6.1 g/dL (6.3-8.2) L 08/05/18 03:54 Albumin 1.5 g/dL (3.9-5) L 08/05/18 03:54 Albumin/Globulin Ratio 0.3 % 08/05/18 03:54 Triglycerides 130 mg/dL (2-149) 08/01/18 05:45 Cholesterol 83 mg/dL (50-199) 08/01/18 05:45 LDL Cholesterol Direct 12 mg/dL (50-130) L 08/01/18 05:45 HDL Cholesterol 17 mg/dL (40-59) L 08/01/18 05:45 Cholesterol/HDL Ratio 4.88 % 08/01/18 05:45 Urine Color [place] (Yellow) 07/29/18 21:33 Urine Turbidity Cloudy (Clear) 07/29/18 21:33 Urine pH 5.0 (5.0-7.0) 07/29/18 21:33 Ur Specific [place] 1.028 (1.003-1.030) 07/29/18 21:33 Urine Protein 100 mg/dl mg/dL (Negative) 07/29/18 21:33 Urine Glucose (UA) Neg mg/dL (Negative) 07/29/18 21:33 Urine Ketones Neg mg/dL (Negative) 07/29/18 21:33 Urine Blood Mod (Negative) 07/29/18 21:33 Urine Nitrite Neg (Negative) 07/29/18 21:33 Urine Bilirubin Neg (Negative) 07/29/18 21:33 Urine Urobilinogen 2.0 mg/dL (<2.0) 07/29/18 21:33 Ur Leukocyte Esterase Lg (Negative) 07/29/18 21:33 Urine WBC (Auto) > 182.0 /HPF (0.0-6.0) H 07/29/18 21:33 Urine RBC (Auto) > 182.0 /HPF (0.0-6.0) 07/29/18 21:33 Urine Bacteria (Auto) 4+ /HPF (Negative) 07/29/18 21:33 Urine WBC Clumps 3+ /HPF 07/29/18 21:33 Urine Mucus Few /HPF 07/29/18 21:33 Urine Eosinophils None seen (None Seen) 07/31/18 Unknown Urine Creatinine 27.3 mg/dL (0.1-20.0) H 07/31/18 Unknown Urine Sodium 99 mmol/L 07/31/18 Unknown Blood Type O POSITIVE 07/30/18 03:26 Antibody Screen Negative 07/30/18 03:26 Crossmatch See Detail 07/30/18 03:26 Active Medications - Current Medications Current Medications: Generic Name Dose Route Start Last Admin Trade Name Freq PRN Reason Stop Dose Admin Acetaminophen 650 mg 07/30/18 02:50 08/17/18 22:19 Tylenol PO 650 mg Q4H PRN Administration Pain MILD(1-3)/Fever >100.5/PRICE Lipase/Protease/Amylase 1 each 07/30/18 13:59 Pancreaze 10,500 Unit FEEDTUBE PRN PRN For Clogged Feeding Tube Ascorbic Acid 500 mg 07/30/18 10:00 08/18/18 09:34 Vitamin C PO 500 mg BID NORA Administration Atorvastatin Calcium 40 mg 08/04/18 22:00 08/17/18 22:19 Lipitor PO 40 mg QHS NORA Administration Carvedilol 3.125 mg 08/04/18 22:00 08/18/18 09:34 Coreg PO 3.125 mg BID NORA Administration Dextrose 50 ml 07/30/18 02:56 D50w (25gm) Syringe IV PRN PRN Hypoglycemia Hydrochlorothiazide 12.5 mg 08/12/18 19:22 08/18/18 09:34 Hctz PO 12.5 mg QDAY NORA Administration MEROPENEM/VABORBACTAM 4 gm/ 250 mls @ 90 mls/hr 08/16/18 14:00 08/18/18 05:29 Sodium Chloride IV 08/20/18 23:59 90 mls/hr Q8HR NORA Administration Insulin Human Regular 0 units 07/31/18 12:00 08/18/18 05:27 Humulin R SUB-Q Not Given Q6HR [facility] Protocol Levetiracetam 500 mg 07/30/18 06:00 08/18/18 09:34 Keppra PO 500 mg Q12H NORA Administration Ondansetron HCl 4 mg 07/30/18 02:50 Zofran IV Q8H PRN Nausea And Vomiting Simple Syrup 15 ml 07/30/18 13:59 Simple Syrup FEEDTUBE PRN PRN Hypoglycemia Simple Syrup 30 ml 07/30/18 13:59 Simple Syrup FEEDTUBE PRN PRN Hypoglycemia Sodium Bicarbonate 325 mg 07/30/18 13:59 Sodium Bicarbonate FEEDTUBE PRN PRN For Clogged Feeding Tube Sodium Chloride 10 ml 07/30/18 10:00 08/18/18 09:35 Sodium Chloride Flush Syringe 10 Ml IV 10 ml BID NORA Administration Sodium Chloride 10 ml 07/30/18 02:50 Sodium Chloride Flush Syringe 10 Ml IV PRN PRN LINE FLUSH Zinc Sulfate 220 mg 07/30/18 10:00 08/18/18 09:35 Zinc Sulfate PO 220 mg QDAY NORA Administration Nutrition/Malnutrition Assess - Dietary Evaluation Nutrition/Malnutrition Findings: Nutrition Notes Start: 07/30/18 09:58 Freq: Status: Active Protocol: Document 08/13/18 16:16 TW (Rec: 08/13/18 16:57 TW [email or web address]) Co-Sign 08/13/18 16:16 NHALL Nutrition Notes Initial or Follow up Brief Note Current Diagnosis Coronary Artery Disease, Decubitus(Pressure Ulcer), Diabetes,Hypertension,Heart Failure Other Pertinent Diagnosis Septic shock, UTI, Seizure D/O , anemia Current Diet Nepro at 50mL/hr Labs/Tests K 3.8 Pertinent Medications Reviewed Height 5 ft 10 in Weight 58.48 kg [place] Body Weight (kg) 75.45 BMI 18.5 Subjective/Other Information F/U for TF change/ tolerance. Noted Nepro running at 50mL/hr . Per RN, pt is tolerating TF. Percent of energy/protein needs met: 100%/100% Burn Absent Trauma Absent #1 Nutrition Diagnosis Malnutrition Diagnosis Progress(for reassessment Continues documentation) Is patient on ventilator? No Is Patient Ambulatory and/or Out of Bed No REE-([facility]-confined to bed) 1639.092 Kcal/Kg value to use for calculation 35 Approximate Energy Requirements Using 2047 kcal/Kg Calculation Used for Recommendations Kcal/kg Additional Notes protein (1.5-2g/kg): 88-117g fluid: 1mL/kcal or per Nutrition Intervention Change Diet Order: TF Nutrition Support: Continue Nepro at 50ml/hr Flush with 220ml q4h Kcal 2,160 Protein (gm) 97 Fluid (mL) 872 Goal #1 TF tolerance Goal #2 TF to continue to meet 100% energy and pro needs Goal #3 Wt maintenance and/or gain Goal #4 Wound healing Anticipated Discharge Needs: TF Follow-Up By: 08/20/18 Additional Comments Follow for stable TF
[2018-08-18] MEDS: TYLENOL PO PRN (17:46)
[2018-08-19] MEDS: HumuLIN R SUB-Q SCH ×3 (05:13→17:54)
[2018-08-19] MEDS: VABOMERE 4 GM in NACL 0.9% 250ML 250 ML IV SCH ×2 (05:15→14:46)
[2018-08-19] MEDS: KEPPRA PO SCH ×2 (05:22→17:53)
[2018-08-19] MEDS: COREG PO SCH (10:50)
[2018-08-19] MEDS: HCTZ PO SCH (10:51)
[2018-08-19] MEDS: ZINC SULFATE PO SCH (10:51)
[2018-08-19] MEDS: SODIUM CHLORIDE FLUSH SYRINGE 10 ML IV SCH (10:52)
[2018-08-19] MEDS: VITAMIN C PO SCH (10:52)
--- NOTE | 2018-08-19 11:04 | Progress Note ---
Assessment and Plan Cultures: 07/29/2018 blood culture: E.coli, highly MDR, Proteus, beta hemolytic group G Streptococcus, Enterococcus Urine culture: mixed madeline 07/31/2018 blood culture: E. coli, 1 out of 4 bottles 08/06/2018: blood culture: no growth to date A/P: 67-year-old male who is a retirement resident who has been hospitalized multiple times to this hospital in the recent past. He has a history of stroke, dementia, CHF, COPD, diabetes, multiple chronic decubitus ulcers, indwelling Chaudhary catheter and multiple recurrent urinary tract infections, previous prostate abscess, hypertension was brought to the hospital this time with fevers and hypotension: 1) Septic shock secondary to polymicrobial bacteremia ESBL E coli, MDR Proteus, Strep and E faecalis: Source is probably multiple infected decubitus ulcers and less likely UTI. 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 Repeat blood cultures 08/06/2018 no growth to date. 2) UTI: Chaudhary was apparently exchanged in ED. Continue abx. 3) Extensive and multiple decubitus ulcers: Multiple hospitalizations in the recent past. Of note, during his last hospitalization in May 2018, patient was discharged with hospice. Unclear why he was rehospitalized, would strongly encourage hospice again. Continue wound care. Prognosis is extremely poor. LEFT HEEL UNSTAGEBALE PRESSURE INJURY. WOUND MEASURES 5X6.5X2. ESCHAR NOTED AROUND EDGES. MODERATE AMOUNT OF SLOUGH NOTED. THERE IS SOME PINK GRANULATION TISSUE. NO ODOR. MODERATE AMOUNT OF SEROSANGUINEOUS DRAINAGE. LEFT LATERAL MALLEOLUS NOTED TO HAVE A SCABBED AREA. SCANT DRAINAGE. LEFT KNEE WOUND ALMOST HEALED. SCANT DRAINAGE. RIGHT LATERAL GREAT TOE ESCHAR. MINIMAL BLEEDING FROM EDGES. MEASURES 2X1X0.1. RIGHT MEDIAL LOWER LEG PRESSURE STAGE 2 INJURY MEASURES 6.5X2.5X0.1. SMALL A MOUNT OF SEROSANGUINEOUS DRAINAGE NOTED. LEFT MEDIAL THIGH WOUND MEASURES 1X1.5X0.3. SMALL AMOUNT OF YELLOW DRAINAGE. NO ODOR. RIGHT LATERAL ANKLE UNSTAGEABLE PRESSURE INJURY. MEASURES 5.5X1.5X0.3. WOUND IS NECROTIC. SMALL AMOUNT OF GRAYISH SUMMERS DRAINAGE. NO ODOR. RIGHT LATERAL MALLEOLUS STAGE 3 PRESSURE INJURY MEASURES 3X2.5X0.3. COVERED WITH YELLOW SLOUGH. MODERATE AMOUNT OF SEROSANGUINEOUS DRAINAGE NOTED. NO ODOR. RIGHT MEDIAL HEEL UNSTAGEABLE PRESSURE ULCER. MEASURES 3.4X2X4. THERE IS A SMALL AMOUNT OF RED GRANULATION TISSUE NOTED, BUT WOUND PROBES TO 4CM AND THERE IS NECROTIC TISSUE NOTED IN THE BASE OF THAT AREA. MODERATE AMOUNT OF SEROUS UNSTAGEABLE LEFT HIP PRESSURE INJURY. MEASURES 7.5X6X5. MILD ODOR. WOUND IS NECROTIC IN THE BASE. HOWEVER THERE IS SOME GRANULATION TISSUE NOTED. LARGE AMOUNT OF SEROSANGUINEOUS DRAINAGE. UNSTAGEABLE SACRAL PRESSURE INJURY. MEASURES 14X8X1. MODERATE AMOUNT OF SEROSANGUINEOUS DRAINAGE NOTED. NO ODOR. THERE IS A NECROTIC AREA AT 9 OCLOCK. LEFT FLANK UNSTAGEABLE PRESSURE INJURY MEASURES 4X3X0.3. COVERED WITH YELLOW SLOUGH. SMALL AMOUNT OF YELLOW DRAINAGE. S/P bedside debridement on 08/07/[address] Man: Topical 4% Lidocaine was applied to his right lateral leg, right lateral ankle and sacral pressure ulcers. His right lateral leg, right lateral ankle and sacral pressure ulcers were surgically, excisionally debrided of necrotic skin and SQ tissue with a curette, scissors, scalpel and forceps. Bleeding was minimal and was controlled with pressure. Final wound measurements are as noted below. Wounds were then dressed by the Wound Care nurseMelissa. Pt was repositioned right side down. Topical 4% Lidocaine was applied to all of the below wounds. His left hip ulcer was surgically, excisionally debrided of necrotic muscle, fascia and bone with scissors and forceps. The left hip joint was grossly exposed during this debridement. Bleeding was minimal and was controlled with pressure. Final wound measurements are as noted below. Pt's left heel ulcer was then surgically, excisionally debrided of necrotic SQ tissue and muscle with forceps and scalpel. Bleeding was minimal and was controlled with pressure. Final wound measurements are as noted below. Finally, pt's left back and right medial leg ulcers were surgically, excisionally debrided of necrotic skin and SQ tissue with a curette, scalpel and forceps. Bleeding was minimal and was controlled with pressure. Final wound measurements are as noted below. All of these wounds were then dressed by the Wound Care nurseMelissa. Pt tolerated the procedure wel 4) Chronic Alk phos elevation, transaminases also elevated this time probably from shock liver. 5) ?septic arthritis of left hip from decubitus ulcer: poor prognosis. Recs: Continue Vabomere at 4gms IV every 8 hours total 14 days ending 08-20-18, D8 of D14 Multiple wound infections is incurable, further antibiotic therapy is futile and will only breed more resistance f/u Blood cultures for ID and RICARDO - still pending. [facility] M: [id number] O:[phone] Subjective Date of service: 08/19/18 Principal diagnosis: Chest Pain Interval history: Patient seen and examined. Asleep, easily arousable. Denies pain or SOB. No acute distress. + low grade fevers. Objective - Exam Narrative Exam: Constitutional: Alert, Awake. No acute distress Head, Ears, Nose: Normocephalic, atraumatic. External ears, nose normal Eyes: Conjunctivae/corneas clear. No icterus. No ptosis. Neck: Supple, no meningeal signs Oral: no thrush Cardiovascular: S1, S2 normal. Respiratory: Good air entry, clear to auscultation bilaterally GI: Soft, non-tender; bowel sounds normal. No peritoneal signs Musculoskeletal: No pedal edema, no cyanosis. Skin: multiple wounds. Bedside I & D of left hip and buttocks. Hem/Lymphatic: No palpable cervical or supraclavicular nodes. No lymphangitis Psych: Mood ok. Affect Flat Neurological: Awake, alert, calm - Constitutional Vitals: Vital Signs Temp Pulse Resp BP Pulse Ox 98.6 F 93 H 29 H 121/79 96 08/19/18 08:00 08/19/18 10:50 08/19/18 05:00 08/19/18 10:50 08/19/18 04:00 Temperature -Last 24 Hours Temperature 98.6 F Temperature 98.6 F Temperature 98.6 F Temperature 99.1 F Temperature 100.4 F Temperature 100.3 F - Labs CBC & Chem 7: 08/12/18 06:00 08/15/18 04:15 Labs: Abnormal lab results 08/18/18 08/18/18 Range/Units 12:06 18:16 POC Glucose 109 H 109 H (70-105)
--- NOTE | 2018-08-19 17:46 | Progress Note ---
Assessment and Plan Assessment and plan: Septic shock, source could be decubitus ulcer Bacteremia - Patient is currently on IV meropenem will continue 08/20, and was treated with tigecycline for 12 days stopped on 08/14 -ID consult appreciated "Complete 14 days of Vabomere for treatment of bacteremia. There is no role for prolonged antibiotic therapy. These wounds are incurable and this has been discussed with the patient and his daughter on the phone. Prolonged therapy will breed more resistance. Poor prognosis. " Swelling of the extremities; resolved Septic arthritis - Could be due to decubitus ulcer - Continue IV antibiotics, orthopedics consulted Symptomatic anemia; transfused and H/H stable Acute renal failure - resolved Patient is bedbound, contracted extremities - Continue supportive care Multiple decubitus ulcer - on wound vac - Dr Man consulted and did debrodement chest pain, chronic elevated troponin - Cardiology consulted and recommended conservative cardiac management DVT prophylaxis - SCDs because of severe anemia Disposition - Patient has multiple admissions. ID said the infection will recur once he stop the antibiotics. Recommend hospice but the family refused. CM is working for LTAC placement. pending insurance authorization. if not available will transfer back to [facility] Microbiology 07/29/18 18:53 Peripheral/Venous Blood Culture - Final Enterococcus Faecalis Escherichia Coli Escherichia Coli#2 Streptococcus Not Group D 07/29/18 18:50 Peripheral/Venous Blood Culture - Preliminary Beta Hemoltyic Strep Group G Proteus Mirabilis Proteus Mirabilis#2 07/30/18 Unknown Urine,Catheterized - Indwelling Catheter Urine Culture - Final 07/31/18 18:12 Stool Stool Occult Blood (RICARDO) - Final Extensive and multiple decubitus ulcers: Multiple hospitalizations in the recent past. Of note, during his last hospitalization in May 2018, patient was discharged with hospice. Unclear why he was rehospitalized, would strongly encourage hospice again. Continue wound care. Prognosis is extremely poor. LEFT HEEL UNSTAGEBALE PRESSURE INJURY. WOUND MEASURES 5X6.5X2. ESCHAR NOTED AROUND EDGES. MODERATE AMOUNT OF SLOUGH NOTED. THERE IS SOME PINK GRANULATION TISSUE. NO ODOR. MODERATE AMOUNT OF SEROSANGUINEOUS DRAINAGE. LEFT LATERAL MALLEOLUS NOTED TO HAVE A SCABBED AREA. SCANT DRAINAGE. LEFT KNEE WOUND ALMOST HEALED. SCANT DRAINAGE. RIGHT LATERAL GREAT TOE ESCHAR. MINIMAL BLEEDING FROM EDGES. MEASURES 2X1X0.1. RIGHT MEDIAL LOWER LEG PRESSURE STAGE 2 INJURY MEASURES 6.5X2.5X0.1. SMALL AMOUNT OF SEROSANGUINEOUS DRAINAGE NOTED. LEFT MEDIAL THIGH WOUND MEASURES 1X1.5X0.3. SMALL AMOUNT OF YELLOW DRAINAGE. NO ODOR. RIGHT LATERAL ANKLE UNSTAGEABLE PRESSURE INJURY. MEASURES 5.5X1.5X0.3. WOUND IS NECROTIC. SMALL AMOUNT OF GRAYISH SUMMERS DRAINAGE. NO ODOR. RIGHT LATERAL MALLEOLUS STAGE 3 PRESSURE INJURY MEASURES 3X2.5X0.3. COVERED WITH YELLOW SLOUGH. MODERATE AMOUNT OF SEROSANGUINEOUS DRAINAGE NOTED. NO ODOR. RIGHT MEDIAL HEEL UNSTAGEABLE PRESSURE ULCER. MEASURES 3.4X2X4. THERE IS A SMALL AMOUNT OF RED GRANULATION TISSUE NOTED, BUT WOUND PROBES TO 4CM AND THERE IS NECROTIC TISSUE NOTED IN THE BASE OF THAT AREA. MODERATE AMOUNT OF SEROUS UNSTAGEABLE LEFT HIP PRESSURE INJURY. MEASURES 7.5X6X5. MILD ODOR. WOUND IS NECROTIC IN THE BASE. HOWEVER THERE IS SOME GRANULATION TISSUE NOTED. LARGE AMOUNT OF SEROSANGUINEOUS DRAINAGE. UNSTAGEABLE SACRAL PRESSURE INJURY. MEASURES 14X8X1. MODERATE AMOUNT OF SEROSANGUINEOUS DRAINAGE NOTED. NO ODOR. THERE IS A NECROTIC AREA AT 9 OCLOCK. LEFT FLANK UNSTAGEABLE PRESSURE INJURY MEASURES 4X3X0.3. COVERED WITH YELLOW S IVÁN. SMALL AMOUNT OF YELLOW DRAINAGE. S/P bedside debridement on 08/07/[address] Man: Topical 4% Lidocaine was applied to his right lateral leg, right lateral ankle and sacral pressure ulcers. His right lateral leg, right lateral ankle and sacral pressure ulcers were surgically, excisionally debrided of necrotic skin and SQ tissue with a curette, scissors, scalpel and forceps. Bleeding was minimal and was controlled with pressure. Final wound measurements are as noted below. Wounds were then dressed by the Wound Care nurseMelissa. Pt was repositioned right side down. Topical 4% Lidocaine was applied to all of the below wounds. His left hip ulcer was surgically, excisionally debrided of necrotic muscle, fascia and bone with scissors and forceps. The left hip joint was grossly exposed during this debridement. Bleeding was minimal and was controlled with pressure. Final wound measurements are as noted below. Pt's left heel ulcer was then surgically, excisionally debrided of necrotic SQ tissue and muscle with forceps and scalpel. Bleeding was minimal and was controlled with pressure. Final wound measurements are as noted below. Finally, pt's left back and right medial leg ulcers were surgically, excisionally debrided of necrotic skin and SQ tissue with a curette, scalpel and forceps. Bleeding was minimal and was controlled with pressure. Final wound measurements are as noted below. All of these wounds were then dressed by the Wound Care nurse, Melissa. Pt tolerated the procedure wel transfer to [facility] Still awaiting family to obtain consent. Multiple calls placed History Interval history: Patient seen and examined, no new complaints. Nursing staff reports no call back from family yet. Continues to tolerate treatment Hospitalist Physical - Physical exam Narrative exam: Not in cardiopulmonary distress. The patient is malnurished. severely contracted, chronically ill and multiple pressure ulcers Vital signs as documented. Head exam is unremarkable. No scleral icterus . Neck is without jugular venous distension, thyromegaly, or carotid bruits. Lungs are clear to auscultation. Cardiac exam reveals regular rate and Rhythm. First and second heart sounds normal. No murmurs, rubs or gallops. Abdominal exam reveals normal bowel sounds, no masses, no organomegaly and no aortic enlargement. Extremities contracted. Swollen. BAG MENDER: Contracted Skin; multiple decubitus ulcer present on admission, wound vac in place. - Constitutional Vitals: Temp Pulse Resp BP Pulse Ox 98.0 F 84 22 140/81 98 08/19/18 16:00 08/19/18 16:00 08/19/18 16:00 08/19/18 14:00 08/19/18 16:00 General appearance: Present: no acute distress, other (ill-looking) Results - Labs CBC & Chem 7: 08/20/18 04:32 08/20/18 04:32 Labs: Laboratory Last Values WBC 11.5 K/mm3 (4.5-11.0) H 08/12/18 06:00 RBC 3.16 M/mm3 (3.65-5.03) L 08/12/18 06:00 Hgb 9.2 gm/dl (11.8-15.2) L 08/12/18 06:00 Hct 26.7 % (35.5-45.6) L 08/12/18 06:00 MCV 84 fl (84-94) 08/12/18 06:00 MCH 29 pg (28-32) 08/12/18 06:00 MCHC 34 % (32-34) 08/12/18 06:00 RDW 17.7 % (13.2-15.2) H 08/12/18 06:00 Plt Count 598 K/mm3 (140-440) H 08/12/18 06:00 Lymph % (Auto) 11.1 % (13.4-35.0) L 08/12/18 06:00 [place] % (Auto) 8.0 % (0.0-7.3) H 08/12/18 06:00 Eos % (Auto) 3.0 % (0.0-4.3) 08/12/18 06:00 Baso % (Auto) 1.1 % (0.0-1.8) 08/12/18 06:00 Lymph # 1.3 K/mm3 (1.2-5.4) 08/12/18 06:00 [place] # 0.9 K/mm3 (0.0-0.8) H 08/12/18 06:00 Eos # 0.3 K/mm3 (0.0-0.4) 08/12/18 06:00 Baso # 0.1 K/mm3 (0.0-0.1) 08/12/18 06:00 Seg Neutrophils % 76.8 % (40.0-70.0) H 08/12/18 06:00 Seg Neutrophils # 8.8 K/mm3 (1.8-7.7) H 08/12/18 06:00 Sodium 137 mmol/L (137-145) 08/15/18 04:15 Potassium 4.5 mmol/L (3.6-5.0) D 08/15/18 04:15 Chloride 104.0 mmol/L (98-107) 08/15/18 04:15 Carbon Dioxide 22 mmol/L (22-30) 08/15/18 04:15 Anion Gap 16 mmol/L 08/15/18 04:15 BUN 34 mg/dL (9-20) H 08/15/18 04:15 Creatinine 0.4 mg/dL (0.8-1.5) L 08/15/18 04:15 Estimated GFR > 60 ml/min 08/15/18 04:15 BUN/Creatinine Ratio 85 % 08/15/18 04:15 Glucose 107 mg/dL (75-100) H 08/15/18 04:15 POC Glucose 97 (70-105) 08/19/18 12:04 Lactic Acid 1.60 mmol/L (0.7-2.0) 07/30/18 03:26 Calcium 8.7 mg/dL (8.4-10.2) 08/15/18 04:15 Phosphorus 4.10 mg/dL (2.5-4.5) 07/31/18 04:25 Magnesium 1.80 mg/dL (1.7-2.3) 08/14/18 04:47 Total Bilirubin 0.30 mg/dL (0.1-1.2) 08/05/18 03:54 Direct Bilirubin < 0.2 mg/dL (0-0.2) 08/05/18 03:54 AST 21 units/L (5-40) 08/05/18 03:54 ALT 26 units/L (7-56) 08/05/18 03:54 Alkaline Phosphatase 258 units/L (35-129) H 08/05/18 03:54 Troponin T 0.162 ng/mL (0.00-0.029) H* 08/01/18 05:45 Total Protein 6.1 g/dL (6.3-8.2) L 08/05/18 03:54 Albumin 1.5 g/dL (3.9-5) L 08/05/18 03:54 Albumin/Globulin Ratio 0.3 % 08/05/18 03:54 Triglycerides 130 mg/dL (2-149) 08/01/18 05:45 Cholesterol 83 mg/dL (50-199) 08/01/18 05:45 LDL Cholesterol Direct 12 mg/dL (50-130) L 08/01/18 05:45 HDL Cholesterol 17 mg/dL (40-59) L 08/01/18 05:45 Cholesterol/HDL Ratio 4.88 % 08/01/18 05:45 Urine Color [place] (Yellow) 07/29/18 21:33 Urine Turbidity Cloudy (Clear) 07/29/18 21:33 Urine pH 5.0 (5.0-7.0) 07/29/18 21:33 Ur Specific [place] 1.028 (1.003-1.030) 07/29/18 21:33 Urine Protein 100 mg/dl mg/dL (Negative) 07/29/18 21:33 Urine Glucose (UA) Neg mg/dL (Negative) 07/29/18 21:33 Urine Ketones Neg mg/dL (Negative) 07/29/18 21:33 Urine Blood Mod (Negative) 07/29/18 21:33 Urine Nitrite Neg (Negative) 07/29/18 21:33 Urine Bilirubin Neg (Negative) 07/29/18 21:33 Urine Urobilinogen 2.0 mg/dL (<2.0) 07/29/18 21:33 Ur Leukocyte Esterase Lg (Negative) 07/29/18 21:33 Urine WBC (Auto) > 182.0 /HPF (0.0-6.0) H 07/29/18 21:33 Urine RBC (Auto) > 182.0 /HPF (0.0-6.0) 07/29/18 21:33 Urine Bacteria (Auto) 4+ /HPF (Negative) 07/29/18 21:33 Urine WBC Clumps 3+ /HPF 07/29/18 21:33 Urine Mucus Few /HPF 07/29/18 21:33 Urine Eosinophils None seen (None Seen) 07/31/18 Unknown Urine Creatinine 27.3 mg/dL (0.1-20.0) H 07/31/18 Unknown Urine Sodium 99 mmol/L 07/31/18 Unknown Blood Type O POSITIVE 07/30/18 03:26 Antibody Screen Negative 07/30/18 03:26 Crossmatch See Detail 07/30/18 03:26 Active Medications - Current Medications Current Medications: Generic Name Dose Route Start Last Admin Trade Name Freq PRN Reason Stop Dose Admin Acetaminophen 650 mg 07/30/18 02:50 08/18/18 17:46 Tylenol PO 650 mg Q4H PRN Administration Pain MILD(1-3)/Fever >100.5/PRICE Lipase/Protease/Amylase 1 each 07/30/18 13:59 Pancreaze 10,500 Unit FEEDTUBE PRN PRN For Clogged Feeding Tube Ascorbic Acid 500 mg 07/30/18 10:00 08/19/18 10:52 Vitamin C PO 500 mg BID NORA Administration Atorvastatin Calcium 40 mg 08/04/18 22:00 08/18/18 22:57 Lipitor PO 40 mg QHS NORA Administration Carvedilol 3.125 mg 08/04/18 22:00 08/19/18 10:50 Coreg PO 3.125 mg BID NORA Administration Dextrose 50 ml 07/30/18 02:56 D50w (25gm) Syringe IV PRN PRN Hypoglycemia Hydrochlorothiazide 12.5 mg 08/12/18 19:22 08/19/18 10:51 Hctz PO 12.5 mg QDAY NORA Administration MEROPENEM/VABORBACTAM 4 gm/ 250 mls @ 90 mls/hr 08/16/18 14:00 08/19/18 14:46 Sodium Chloride IV 08/20/18 23:59 90 mls/hr Q8HR NORA Administration Insulin Human Regular 0 units 07/31/18 12:00 08/19/18 14:46 Humulin R SUB-Q Not Given Q6HR [facility] Protocol Levetiracetam 500 mg 07/30/18 06:00 08/19/18 05:22 Keppra PO 500 mg Q12H NORA Administration Ondansetron HCl 4 mg 07/30/18 02:50 Zofran IV Q8H PRN Nausea And Vomiting Simple Syrup 15 ml 07/30/18 13:59 Simple Syrup FEEDTUBE PRN PRN Hypoglycemia Simple Syrup 30 ml 07/30/18 13:59 Simple Syrup FEEDTUBE PRN PRN Hypoglycemia Sodium Bicarbonate 325 mg 07/30/18 13:59 Sodium Bicarbonate FEEDTUBE PRN PRN For Clogged Feeding Tube Sodium Chloride 10 ml 07/30/18 10:00 08/19/18 10:52 Sodium Chloride Flush Syringe 10 Ml IV 10 ml BID NORA Administration Sodium Chloride 10 ml 07/30/18 02:50 Sodium Chloride Flush Syringe 10 Ml IV PRN PRN LINE FLUSH Zinc Sulfate 220 mg 07/30/18 10:00 08/19/18 10:51 Zinc Sulfate PO 220 mg QDAY NORA Administration Nutrition/Malnutrition Assess - Dietary Evaluation Nutrition/Malnutrition Findings: Nutrition Notes Start: 07/30/18 09:58 Freq: Status: Active Protocol: Document 08/13/18 16:16 TW (Rec: 08/13/18 16:57 TW [email or web address]) Co-Sign 08/13/18 16:16 NHALL Nutrition Notes Initial or Follow up Brief Note Current Diagnosis Coronary Artery Disease, Decubitus(Pressure Ulcer), Diabetes,Hypertension,Heart Failure Other Pertinent Diagnosis Septic shock, UTI, Seizure D/O , anemia Current Diet Nepro at 50mL/hr Labs/Tests K 3.8 Pertinent Medications Reviewed Height 5 ft 10 in Weight 58.48 kg [place] Body Weight (kg) 75.45 BMI 18.5 Subjective/Other Information F/U for TF change/ tolerance. Noted Nepro running at 50mL/hr . Per RN, pt is tolerating TF. Percent of energy/protein needs met: 100%/100% Burn Absent Trauma Absent #1 Nutrition Diagnosis Malnutrition Diagnosis Progress(for reassessment Continues documentation) Is patient on ventilator? No Is Patient Ambulatory and/or Out of Bed No [facility] 1639.092 Kcal/Kg value to use for calculation 35 Approximate Energy Requirements Using 2047 kcal/Kg Calculation Used for Recommendations Kcal/kg Additional Notes protein (1.5-2g/kg): 88-117g fluid: 1mL/kcal or per MD Nutrition Intervention Change Diet Order: TF Nutrition Support: Continue Nepro at 50ml/hr Flush with 220ml q4h Kcal 2,160 Protein (gm) 97 Fluid (mL) 872 Goal #1 TF tolerance Goal #2 TF to continue to meet 100% energy and pro needs Goal #3 Wt maintenance and/or gain Goal #4 Wound healing Anticipated Discharge Needs: TF Follow-Up By: 08/20/18 Additional Comments Follow for stable TF
[2018-08-20] MEDS: VABOMERE 4 GM in NACL 0.9% 250ML 250 ML IV SCH ×4 (00:48→23:44)
[2018-08-20] MEDS: COREG PO SCH ×3 (00:49→23:45)
[2018-08-20] MEDS: VITAMIN C PO SCH ×3 (00:49→23:45)
[2018-08-20] MEDS: SODIUM CHLORIDE FLUSH SYRINGE 10 ML IV SCH ×3 (00:50→23:46)
[2018-08-20 05:12] LABS: Hematocrit 26.3 % (35.5-45.6); Hemoglobin 8.7 gm/dl (11.8-15.2); Mean Corpuscular HGB Conc 33 % (32-34); Mean Corpuscular Volume 85 fl (84-94); Platelet Count 295 K/mm3 (140-440); Red Blood Count 3.11 M/mm3 (3.65-5.03); Red Cell Distribution Width 17.6 % (13.2-15.2)
[2018-08-20 05:46] LABS: Alanine Aminotransferase 23 units/L (7-56); Albumin 1.8 g/dL (3.9-5); BUN/Creatinine Ratio 57; Blood Urea Nitrogen 17 mg/dL (9-20); Hemolysis Index 3
[2018-08-20] MEDS: HumuLIN R SUB-Q SCH ×3 (05:52→18:13)
--- NOTE | 2018-08-20 07:12 | Progress Note ---
Assessment and Plan 1. Acute kidney injury: Vasomotor / hemodynamic MÓNICA in the setting of hypotension, sepsis and volume depletion. Renal function is better. Monitor renal function. Avoid nephrotoxic agents. Meds dosage based on GFR. 2. FEN: Hypokalemia, replete K. Replete Phos. Edema, improving. Change tube feeding to Glucerna 1.2 Monitor lytes. 3. Sepsis with shock: BP is better. Polymicrobial infection. Followed by ID. 4. Anemia: S/p PRBC. 5. Multiple decubitus ulcers: S/p debridement. Subjective Date of service: 08/20/18 Principal diagnosis: Chest Pain Interval history: Patient was seen and examined at the bedside. Objective - Vital Signs Vital signs: Vital Signs - 12hr 08/19/18 08/20/18 08/20/18 20:00 00:00 00:49 Temperature 99.0 F 98.5 F Pulse Rate 89 89 Pulse Rate [ 89 From Monitor] Respiratory 20 Rate Blood Pressure 141/80 O2 Sat by Pulse 99 Oximetry 08/20/18 03:46 Temperature 98.4 F Pulse Rate Pulse Rate [ From Monitor] Respiratory Rate Blood Pressure O2 Sat by Pulse Oximetry - General Appearance General appearance: well-developed, appears stated age, other (not in distress) EENT: ATNC, PERRL Respiratory: Present: Clear to Ascultation Cardiology: regular, S1S2, no murmurs Gastrointestinal: normoactive bowel sounds, no tenderness, other (PEG tube noted, Chaudhary catheter) Integumentary: ulcer, decubiti, other (multiple area dressing noted) Neurologic: other (not following any command) Musculoskeletal: other (trace UE edema noted) - Lab 08/20/18 04:32 08/20/18 04:32 Most recent lab results Calcium 9.0 mg/dL (8.4-10.2) 08/20/18 04:32 Phosphorus 2.00 mg/dL (2.5-4.5) L 08/20/18 04:32 Magnesium 1.80 mg/dL (1.7-2.3) 08/20/18 04:32 Urine Creatinine 27.3 mg/dL (0.1-20.0) H 07/31/18 Unknown Urine Sodium 99 mmol/L 07/31/18 Unknown Medications & Allergies - Medications Allergies/Adverse Reactions: Allergies tramadol Allergy (Verified 07/29/18 18:39) Unknown Home Medications: Home Medications Medication Instructions Recorded Confirmed Last Taken Type amLODIPine [Norvasc] 10 mg NGTUBE DAILY 06/02/16 07/30/18 Unknown History Multivit-Min/Iron Fum/Folic AC 1 each PO DAILY 03/24/18 07/30/18 Unknown History [Zxahy-Mznvatd-Popdlzwi Tablet] Carvedilol [Coreg] 6.25 mg PO Q12H 06/13/18 07/30/18 Unknown History Acetaminophen 650 mg NGTUBE Q6H PRN 07/30/18 07/30/18 Unknown History Apixaban [Eliquis] 2.5 mg PO Q12H 07/30/18 07/30/18 Unknown History AtorvaSTATin [Lipitor] 40 mg NGTUBE QHS 07/30/18 07/30/18 Unknown History Dutasteride 0.5 mg NGTUBE QAM 07/30/18 07/30/18 Unknown History Furosemide [Lasix TAB] 40 mg PO QDAY 07/30/18 07/30/18 Unknown History Ipratropium/Albuterol Sulfate 1 ampul IH BID 07/30/18 07/30/18 Unknown History [DUONEB *Not for PRN Use*] Lisinopril [Zestril TAB] 40 mg PO QDAY 07/30/18 07/30/18 Unknown History Oxycodone HCl/Acetaminophen 1 each PO Q8HR PRN 07/30/18 07/30/18 Unknown History [Percocet 7.5/325 mg] Tamsulosin [Flomax] 0.4 mg PO QDAY 07/30/18 07/30/18 Unknown History Vit C/Ascorbate Calcium,Sodium 500 mg NGTUBE BID 07/30/18 07/30/18 Unknown History [Vitamin C 500 mg/15 ml Liquid] Zinc Sulfate 220 mg NGTUBE QDAY 07/30/18 07/30/18 Unknown History diphenhydrAMINE [Benadryl CAP] 25 mg NGTUBE Q6H PRN 07/30/18 07/30/18 Unknown History levETIRAcetam [Keppra INJ] 500 mg PO Q12H 07/30/18 07/30/18 Unknown History Active Medications: Generic Name Dose Route Start Last Admin Trade Name Freq PRN Reason Stop Dose Admin Acetaminophen 650 mg 07/30/18 02:50 08/18/18 17:46 Tylenol PO 650 mg Q4H PRN Administration Pain MILD(1-3)/Fever >100.5/PRICE Lipase/Protease/Amylase 1 each 07/30/18 13:59 Pancreaze 10,500 Unit FEEDTUBE PRN PRN For Clogged Feeding Tube Ascorbic Acid 500 mg 07/30/18 10:00 08/20/18 00:49 Vitamin C PO 500 mg BID NORA Administration Atorvastatin Calcium 40 mg 08/04/18 22:00 08/20/18 00:50 Lipitor PO 40 mg QHS NORA Administration Carvedilol 3.125 mg 08/04/18 22:00 08/20/18 00:49 Coreg PO 3.125 mg BID NORA Administration Dextrose 50 ml 07/30/18 02:56 D50w (25gm) Syringe IV PRN PRN Hypoglycemia Hydrochlorothiazide 12.5 mg 08/12/18 19:22 08/19/18 10:51 Hctz PO 12.5 mg QDAY NORA Administration MEROPENEM/VABORBACTAM 4 gm/ 250 mls @ 90 mls/hr 08/16/18 14:00 08/20/18 00:48 Sodium Chloride IV 08/20/18 23:59 90 mls/hr Q8HR NORA Administration Insulin Human Regular 0 units 07/31/18 12:00 08/20/18 05:52 Humulin R SUB-Q Not Given Q6HR [facility] Protocol Levetiracetam 500 mg 07/30/18 06:00 08/19/18 17:53 Keppra PO 500 mg Q12H NORA Administration Ondansetron HCl 4 mg 07/30/18 02:50 Zofran IV Q8H PRN Nausea And Vomiting Potassium Phos/Sodium Phos 2 each 08/20/18 07:11 Phos-Nak PO 08/20/18 07:12 ONCE ONE Simple Syrup 15 ml 07/30/18 13:59 Simple Syrup FEEDTUBE PRN PRN Hypoglycemia Simple Syrup 30 ml 07/30/18 13:59 Simple Syrup FEEDTUBE PRN PRN Hypoglycemia Sodium Bicarbonate 325 mg 07/30/18 13:59 Sodium Bicarbonate FEEDTUBE PRN PRN For Clogged Feeding Tube Sodium Chloride 10 ml 07/30/18 10:00 08/20/18 00:50 Sodium Chloride Flush Syringe 10 Ml IV 10 ml BID NORA Administration Sodium Chloride 10 ml 07/30/18 02:50 Sodium Chloride Flush Syringe 10 Ml IV PRN PRN LINE FLUSH Zinc Sulfate 220 mg 07/30/18 10:00 08/19/18 10:51 Zinc Sulfate PO 220 mg QDAY NORA Administration
[2018-08-20] MEDS: KEPPRA PO SCH ×2 (07:16→17:38)
[2018-08-20] MEDS ORDERED: PHOS-NAK PO ONE (09:00)
--- NOTE | 2018-08-20 10:28 | Progress Note ---
Assessment and Plan Cultures: 07/29/2018 blood culture: E.coli, highly MDR, Proteus, beta hemolytic group G Streptococcus, Enterococcus Urine culture: mixed madeline 07/31/2018 blood culture: E. coli, 1 out of 4 bottles 08/06/2018: blood culture: no growth to date A/P: 67-year-old male who is a alf resident who has been hospitalized multiple times to this hospital in the recent past. He has a history of stroke, dementia, CHF, COPD, diabetes, multiple chronic decubitus ulcers, indwelling Chaudhary catheter and multiple recurrent urinary tract infections, previous prostate abscess, hypertension was brought to the hospital this time with fevers and hypotension: 1) Septic shock secondary to polymicrobial bacteremia ESBL E coli, MDR Proteus, Strep and E faecalis: Source is probably multiple infected decubitus ulcers and less likely UTI. 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 Repeat blood cultures 08/06/2018 no growth to date. 2) UTI: Chaudhary was apparently exchanged in ED. Continue abx. 3) Extensive and multiple decubitus ulcers: Multiple hospitalizations in the recent past. Of note, during his last hospitalization in May 2018, patient was discharged with hospice. Unclear why he was rehospitalized, would strongly encourage hospice again. Continue wound care. Prognosis is extremely poor. LEFT HEEL UNSTAGEBALE PRESSURE INJURY. WOUND MEASURES 5X6.5X2. ESCHAR NOTED AROUND EDGES. MODERATE AMOUNT OF SLOUGH NOTED. THERE IS SOME PINK GRANULATION TISSUE. NO ODOR. MODERATE AMOUNT OF SEROSANGUINEOUS DRAINAGE. LEFT LATERAL MALLEOLUS NOTED TO HAVE A SCABBED AREA. SCANT DRAINAGE. LEFT KNEE WOUND ALMOST HEALED. SCANT DRAINAGE. RIGHT LATERAL GREAT TOE ESCHAR. MINIMAL BLEEDING FROM EDGES. MEASURES 2X1X0.1. RIGHT MEDIAL LOWER LEG PRESSURE STAGE 2 INJURY MEASURES 6.5X2.5X0.1. SMALL A MOUNT OF SEROSANGUINEOUS DRAINAGE NOTED. LEFT MEDIAL THIGH WOUND MEASURES 1X1.5X0.3. SMALL AMOUNT OF YELLOW DRAINAGE. NO ODOR. RIGHT LATERAL ANKLE UNSTAGEABLE PRESSURE INJURY. MEASURES 5.5X1.5X0.3. WOUND IS NECROTIC. SMALL AMOUNT OF GRAYISH SUMMERS DRAINAGE. NO ODOR. RIGHT LATERAL MALLEOLUS STAGE 3 PRESSURE INJURY MEASURES 3X2.5X0.3. COVERED WITH YELLOW SLOUGH. MODERATE AMOUNT OF SEROSANGUINEOUS DRAINAGE NOTED. NO ODOR. RIGHT MEDIAL HEEL UNSTAGEABLE PRESSURE ULCER. MEASURES 3.4X2X4. THERE IS A SMALL AMOUNT OF RED GRANULATION TISSUE NOTED, BUT WOUND PROBES TO 4CM AND THERE IS NECROTIC TISSUE NOTED IN THE BASE OF THAT AREA. MODERATE AMOUNT OF SEROUS UNSTAGEABLE LEFT HIP PRESSURE INJURY. MEASURES 7.5X6X5. MILD ODOR. WOUND IS NECROTIC IN THE BASE. HOWEVER THERE IS SOME GRANULATION TISSUE NOTED. LARGE AMOUNT OF SEROSANGUINEOUS DRAINAGE. UNSTAGEABLE SACRAL PRESSURE INJURY. MEASURES 14X8X1. MODERATE AMOUNT OF SEROSANGUINEOUS DRAINAGE NOTED. NO ODOR. THERE IS A NECROTIC AREA AT 9 OCLOCK. LEFT FLANK UNSTAGEABLE PRESSURE INJURY MEASURES 4X3X0.3. COVERED WITH YELLOW SLOUGH. SMALL AMOUNT OF YELLOW DRAINAGE. S/P bedside debridement on 08/07/[address] Man: Topical 4% Lidocaine was applied to his right lateral leg, right lateral ankle and sacral pressure ulcers. His right lateral leg, right lateral ankle and sacral pressure ulcers were surgically, excisionally debrided of necrotic skin and SQ tissue with a curette, scissors, scalpel and forceps. Bleeding was minimal and was controlled with pressure. Final wound measurements are as noted below. Wounds were then dressed by the Wound Care nurseMelissa. Pt was repositioned right side down. Topical 4% Lidocaine was applied to all of the below wounds. His left hip ulcer was surgically, excisionally debrided of necrotic muscle, fascia and bone with scissors and forceps. The left hip joint was grossly exposed during this debridement. Bleeding was minimal and was controlled with pressure. Final wound measurements are as noted below. Pt's left heel ulcer was then surgically, excisionally debrided of necrotic SQ tissue and muscle with forceps and scalpel. Bleeding was minimal and was controlled with pressure. Final wound measurements are as noted below. Finally, pt's left back and right medial leg ulcers were surgically, excisionally debrided of necrotic skin and SQ tissue with a curette, scalpel and forceps. Bleeding was minimal and was controlled with pressure. Final wound measurements are as noted below. All of these wounds were then dressed by the Wound Care nurseMelissa. Pt tolerated the procedure wel 4) Chronic Alk phos elevation, transaminases also elevated this time probably from shock liver. 5) ?septic arthritis of left hip from decubitus ulcer: poor prognosis. Recs: Continue Vabomere at 4gms IV every 8 hours total 14 days ending 08-20-18, D9 of D14 Multiple wound infections is incurable, further antibiotic therapy is futile and will only breed more resistance f/u Blood cultures for ID and RICARDO - still pending. Jacquie Jean Baptiste NP [facility] M: [id number] O:[phone] Subjective Date of service: 08/20/18 Principal diagnosis: Chest Pain Interval history: Patient seen and examined. Awake. Alert. No acute distress observed. Wound care at bedside. Objective - Exam Narrative Exam: Constitutional: Alert, Awake. No acute distress Head, Ears, Nose: Normocephalic, atraumatic. External ears, nose normal Eyes: Conjunctivae/corneas clear. No icterus. No ptosis. Neck: Supple, no meningeal signs Oral: no thrush Cardiovascular: S1, S2 normal. Respiratory: Good air entry, clear to auscultation bilaterally GI: Soft, non-tender; bowel sounds normal. No peritoneal signs Musculoskeletal: No pedal edema, no cyanosis. Skin: multiple wounds. Wound care nurse at bedside Hem/Lymphatic: No palpable cervical or supraclavicular nodes. No lymphangitis Psych: Mood ok. Affect Flat Neurological: Awake, alert, calm - Constitutional Vitals: Vital Signs Temp Pulse Resp BP Pulse Ox 97.8 F 81 26 H 130/68 95 08/20/18 08:00 08/20/18 07:00 08/20/18 07:00 08/20/18 07:00 08/20/18 07:00 Temperature -Last 24 Hours Temperature 97.8 F Temperature 98.4 F Temperature 98.5 F Temperature 99.0 F Temperature 98.0 F Temperature 99.0 F - Labs CBC & Chem 7: 08/20/18 04:32 08/20/18 04:32 Labs: Abnormal lab results 08/20/18 08/20/18 08/20/18 Range/Units 04:32 04:32 05:56 RBC 3.11 L (3.65-5.03) M/mm3 Hgb 8.7 L (11.8-15.2) gm/dl Hct 26.3 L (35.5-45.6) % RDW 17.6 H (13.2-15.2) % Potassium 3.1 L (3.6-5.0) mmol/L Creatinine 0.3 L (0.8-1.5) mg/dL Glucose 111 H (75-100) mg/dL POC Glucose 113 H (70-105) Phosphorus 2.00 L (2.5-4.5) mg/dL Alkaline Phosphatase 198 H (35-129) units/L Albumin 1.8 L (3.9-5) g/dL
[2018-08-20] MEDS ORDERED: PHOS-NAK PO NR (12:00)
[2018-08-20] MEDS: HCTZ PO SCH (12:00)
[2018-08-20] MEDS: ZINC SULFATE PO SCH (12:02)
--- NOTE | 2018-08-20 14:21 | Progress Note ---
Assessment and Plan Assessment and plan: Septic shock, source could be decubitus ulcer Bacteremia - Patient is currently on IV meropenem will continue 08/20, and was treated with tigecycline for 12 days stopped on 08/14 -ID consult appreciated "Complete 14 days of Vabomere for treatment of bacteremia. There is no role for prolonged antibiotic therapy. These wounds are incurable and this has been discussed with the patient and his daughter on the phone. Prolonged therapy will breed more resistance. Poor prognosis. " Abx to be completed today Swelling of the extremities; resolved Septic arthritis - Could be due to decubitus ulcer - Continue IV antibiotics, orthopedics consulted Symptomatic anemia; transfused and H/H stable Acute renal failure - resolved Patient is bedbound, contracted extremities - Continue supportive care Multiple decubitus ulcer - on wound vac - Dr Man consulted and did debrodement chest pain, chronic elevated troponin - Cardiology consulted and recommended conservative cardiac management DVT prophylaxis - SCDs because of severe anemia Disposition - Patient has multiple admissions. ID said the infection will recur once he stop the antibiotics. Recommend hospice but the family refused. CM is working for L TAC placement. pending insurance authorization. if not available will transfer back to [facility] Microbiology 07/29/18 18:53 Peripheral/Venous Blood Culture - Final Enterococcus Faecalis Escherichia Coli Escherichia Coli#2 Streptococcus Not Group D 07/29/18 18:50 Peripheral/Venous Blood Culture - Preliminary Beta Hemoltyic Strep Group G Proteus Mirabilis Proteus Mirabilis#2 07/30/18 Unknown Urine,Catheterized - Indwelling Catheter Urine Culture - Final 07/31/18 18:12 Stool Stool Occult Blood (RICARDO) - Final Extensive and multiple decubitus ulcers: Multiple hospitalizations in the recent past. Of note, during his last hospitalization in May 2018, patient was discharged with hospice. Unclear why he was rehospitalized, would strongly encourage hospice again. Continue wound care. Prognosis is extremely poor. LEFT HEEL UNSTAGEBALE PRESSURE INJURY. WOUND MEASURES 5X6.5X2. ESCHAR NOTED AROUND EDGES. MODERATE AMOUNT OF SLOUGH NOTED. THERE IS SOME PINK GRANULATION TISSUE. NO ODOR. MODERATE AMOUNT OF SEROSANGUINEOUS DRAINAGE. LEFT LATERAL MALLEOLUS NOTED TO HAVE A SCABBED AREA. SCANT DRAINAGE. LEFT KNEE WOUND ALMOST HEALED. SCANT DRAINAGE. RIGHT LATERAL GREAT TOE ESCHAR. MINIMAL BLEEDING FROM EDGES. MEASURES 2X1X0.1. RIGHT MEDIAL LOWER LEG PRESSURE STAGE 2 INJURY MEASURES 6.5X2.5X0.1. SMALL AMOUNT OF SEROSANGUINEOUS DRAINAGE NOTED. LEFT MEDIAL THIGH WOUND MEASURES 1X1.5X0.3. SMALL AMOUNT OF YELLOW DRAINAGE. NO ODOR. RIGHT LATERAL ANKLE UNSTAGEABLE PRESSURE INJURY. MEASURES 5.5X1.5X0.3. WOUND IS NECROTIC. SMALL AMOUNT OF GRAYISH SUMMERS DRAINAGE. NO ODOR. RIGHT LATERAL MALLEOLUS STAGE 3 PRESSURE INJURY MEASURES 3X2.5X0.3. COVERED WITH YELLOW SLOUGH. MODERATE AMOUNT OF SEROSANGUINEOUS DRAINAGE NOTED. NO ODOR. RIGHT MEDIAL HEEL UNSTAGEABLE PRESSURE ULCER. MEASURES 3.4X2X4. THERE IS A SMALL AMOUNT OF RED GRANULATION TISSUE NOTED, BUT WOUND PROBES TO 4CM AND THERE IS NECROTIC TISSUE NOTED IN THE BASE OF THAT AREA. MODERATE AMOUNT OF SEROUS UNSTAGEABLE LEFT HIP PRESSURE INJURY. MEASURES 7.5X6X5. MILD ODOR. WOUND IS NECROTIC IN THE BASE. HOWEVER THERE IS SOME GRANULATION TISSUE NOTED. LARGE AMOUNT OF SEROSANGUINEOUS DRAINAGE. UNSTAGEABLE SACRAL PRESSURE INJURY. MEASURES 14X8X1. MODERATE AMOUNT OF SEROSANGUINEOUS DRAINAGE NOTED. NO ODOR. THERE IS A NECROTIC AREA AT 9 OCLOCK. LEFT FLANK UNSTAGEABLE PRESSURE INJURY MEASURES 4X3X0.3. COVERED WITH YELLOW SLOUGH. SMALL AMOUNT OF YELLOW DRAINAGE. S/P bedside debridement on 08/07/[address] Man: Topical 4% Lidocaine was applied to his right lateral leg, right lateral ankle and sacral pressure ulcers. His right lateral leg, right lateral ankle and sacral pressure ulcers were surgically, excisionally debrided of necrotic skin and SQ tissue with a curette, scissors, scalpel and forceps. Bleeding was minimal and was controlled with pressure. Final wound measurements are as noted below. Wounds were then dressed by the Wound Care nurseMelissa. Pt was repositioned right side down. Topical 4% Lidocaine was applied to all of the below wounds. His left hip ulcer was surgically, excisionally debrided of necrotic muscle, fascia and bone with scissors and forceps. The left hip joint was grossly exposed during this debridement. Bleeding was minimal and was controlled with pressure. Final wound measurements are as noted below. Pt's left heel ulcer was then surgically, excisionally debrided of necrotic SQ tissue and muscle with forceps and scalpel. Bleeding was minimal and was controlled with pressure. Final wound measurements are as noted below. Finally, pt's left back and right medial leg ulcers were surgically, excisionally debrided of necrotic skin and SQ tissue with a curette, scalpel and forceps. Bleeding was minimal and was controlled with pressure. Final wound measurements are as noted below. All of these wo unds were then dressed by the Wound Care nurse, Melissa. Pt tolerated the procedure wel transfer to [place] Still awaiting family to obtain consent. Multiple calls placed. Anticipate discharge tomorrow. History Interval history: Patient seen and examined, no new complaints. Continues to tolerate treatment Hospitalist Physical - Physical exam Narrative exam: Not in cardiopulmonary distress. The patient is malnurished. severely contracted, chronically ill and multiple pressure ulcers Vital signs as documented. Head exam is unremarkable. No scleral icterus . Neck is without jugular venous distension, thyromegaly, or carotid bruits. Lungs are clear to auscultation. Cardiac exam reveals regular rate and Rhythm. First and second heart sounds normal. No murmurs, rubs or gallops. Abdominal exam reveals normal bowel sounds, no masses, no organomegaly and no aortic enlargement. Extremities contracted. Swollen. DATA CAPTURE CLERK: Contracted Skin; multiple decubitus ulcer present on admission, wound vac in place. - Constitutional Vitals: Temp Pulse Resp BP Pulse Ox 98.0 F 83 25 H 145/88 97 08/20/18 12:00 08/20/18 13:00 08/20/18 13:00 08/20/18 13:00 08/20/18 13:00 General appearance: Present: no acute distress, other (ill-looking) Results - Labs CBC & Chem 7: 08/20/18 04:32 08/20/18 04:32 Labs: Laboratory Last Values WBC 6.8 K/mm3 (4.5-11.0) 08/20/18 04:32 RBC 3.11 M/mm3 (3.65-5.03) L 08/20/18 04:32 Hgb 8.7 gm/dl (11.8-15.2) L 08/20/18 04:32 Hct 26.3 % (35.5-45.6) L 08/20/18 04:32 MCV 85 fl (84-94) 08/20/18 04:32 MCH 28 pg (28-32) 08/20/18 04:32 MCHC 33 % (32-34) 08/20/18 04:32 RDW 17.6 % (13.2-15.2) H 08/20/18 04:32 Plt Count 295 K/mm3 (140-440) 08/20/18 04:32 Lymph % (Auto) 11.1 % (13.4-35.0) L 08/12/18 06:00 [place] % (Auto) 8.0 % (0.0-7.3) H 08/12/18 06:00 Eos % (Auto) 3.0 % (0.0-4.3) 08/12/18 06:00 Baso % (Auto) 1.1 % (0.0-1.8) 08/12/18 06:00 Lymph # 1.3 K/mm3 (1.2-5.4) 08/12/18 06:00 [place] # 0.9 K/mm3 (0.0-0.8) H 08/12/18 06:00 Eos # 0.3 K/mm3 (0.0-0.4) 08/12/18 06:00 Baso # 0.1 K/mm3 (0.0-0.1) 08/12/18 06:00 Seg Neutrophils % 76.8 % (40.0-70.0) H 08/12/18 06:00 Seg Neutrophils # 8.8 K/mm3 (1.8-7.7) H 08/12/18 06:00 Sodium 139 mmol/L (137-145) 08/20/18 04:32 Potassium 3.1 mmol/L (3.6-5.0) L 08/20/18 04:32 Chloride 101.8 mmol/L (98-107) 08/20/18 04:32 Carbon Dioxide 27 mmol/L (22-30) 08/20/18 04:32 Anion Gap 13 mmol/L 08/20/18 04:32 BUN 17 mg/dL (9-20) 08/20/18 04:32 Creatinine 0.3 mg/dL (0.8-1.5) L 08/20/18 04:32 Estimated GFR > 60 ml/min 08/20/18 04:32 BUN/Creatinine Ratio 57 % 08/20/18 04:32 Glucose 111 mg/dL (75-100) H 08/20/18 04:32 POC Glucose 113 (70-105) H 08/20/18 05:56 Lactic Acid 1.60 mmol/L (0.7-2.0) 07/30/18 03:26 Calcium 9.0 mg/dL (8.4-10.2) 08/20/18 04:32 Phosphorus 2.00 mg/dL (2.5-4.5) L 08/20/18 04:32 Magnesium 1.80 mg/dL (1.7-2.3) 08/20/18 04:32 Total Bilirubin 0.20 mg/dL (0.1-1.2) 08/20/18 04:32 Direct Bilirubin < 0.2 mg/dL (0-0.2) 08/05/18 03:54 AST 31 units/L (5-40) 08/20/18 04:32 ALT 23 units/L (7-56) 08/20/18 04:32 Alkaline Phosphatase 198 units/L (35-129) H 08/20/18 04:32 Troponin T 0.162 ng/mL (0.00-0.029) H* 08/01/18 05:45 Total Protein 6.6 g/dL (6.3-8.2) 08/20/18 04:32 Albumin 1.8 g/dL (3.9-5) L 08/20/18 04:32 Albumin/Globulin Ratio 0.4 % 08/20/18 04:32 Triglycerides 130 mg/dL (2-149) 08/01/18 05:45 Cholesterol 83 mg/dL (50-199) 08/01/18 05:45 LDL Cholesterol Direct 12 mg/dL (50-130) L 08/01/18 05:45 HDL Cholesterol 17 mg/dL (40-59) L 08/01/18 05:45 Cholesterol/HDL Ratio 4.88 % 08/01/18 05:45 Urine Color [place] (Yellow) 07/29/18 21:33 Urine Turbidity Cloudy (Clear) 07/29/18 21:33 Urine pH 5.0 (5.0-7.0) 07/29/18 21:33 Ur Specific [place] 1.028 (1.003-1.030) 07/29/18 21:33 Urine Protein 100 mg/dl mg/dL (Negative) 07/29/18 21:33 Urine Glucose (UA) Neg mg/dL (Negative) 07/29/18 21:33 Urine Ketones Neg mg/dL (Negative) 07/29/18 21:33 Urine Blood Mod (Negative) 07/29/18 21:33 Urine Nitrite Neg (Negative) 07/29/18 21:33 Urine Bilirubin Neg (Negative) 07/29/18 21:33 Urine Urobilinogen 2.0 mg/dL (<2.0) 07/29/18 21:33 Ur Leukocyte Esterase Lg (Negative) 07/29/18 21:33 Urine WBC (Auto) > 182.0 /HPF (0.0-6.0) H 07/29/18 21:33 Urine RBC (Auto) > 182.0 /HPF (0.0-6.0) 07/29/18 21:33 Urine Bacteria (Auto) 4+ /HPF (Negative) 07/29/18 21:33 Urine WBC Clumps 3+ /HPF 07/29/18 21:33 Urine Mucus Few /HPF 07/29/18 21:33 Urine Eosinophils None seen (None Seen) 07/31/18 Unknown Urine Creatinine 27.3 mg/dL (0.1-20.0) H 07/31/18 Unknown Urine Sodium 99 mmol/L 07/31/18 Unknown Blood Type O POSITIVE 07/30/18 03:26 Antibody Screen Negative 07/30/18 03:26 Crossmatch See Detail 07/30/18 03:26 Active Medications - Current Medications Current Medications: Generic Name Dose Route Start Last Admin Trade Name Freq PRN Reason Stop Dose Admin Acetaminophen 650 mg 07/30/18 02:50 08/18/18 17:46 Tylenol PO 650 mg Q4H PRN Administration Pain MILD(1-3)/Fever >100.5/PRICE Lipase/Protease/Amylase 1 each 07/30/18 13:59 Pancreaze 10,500 Unit FEEDTUBE PRN PRN For Clogged Feeding Tube Ascorbic Acid 500 mg 07/30/18 10:00 08/20/18 12:01 Vitamin C PO 500 mg BID NORA Administration Atorvastatin Calcium 40 mg 08/04/18 22:00 08/20/18 00:50 Lipitor PO 40 mg QHS NORA Administration Carvedilol 3.125 mg 08/04/18 22:00 08/20/18 12:01 Coreg PO 3.125 mg BID NORA Administration Dextrose 50 ml 07/30/18 02:56 D50w (25gm) Syringe IV PRN PRN Hypoglycemia Hydrochlorothiazide 12.5 mg 08/12/18 19:22 08/20/18 12:00 Hctz PO 12.5 mg QDAY NORA Administration MEROPENEM/VABORBACTAM 4 gm/ 250 mls @ 90 mls/hr 08/16/18 14:00 08/20/18 07:16 Sodium Chloride IV 08/20/18 23:59 90 mls/hr Q8HR NORA Administration Insulin Human Regular 0 units 07/31/18 12:00 08/20/18 13:19 Humulin R SUB-Q Not Given Q6HR [facility] Protocol Levetiracetam 500 mg 07/30/18 06:00 08/20/18 07:16 Keppra PO 500 mg Q12H NORA Administration Ondansetron HCl 4 mg 07/30/18 02:50 Zofran IV Q8H PRN Nausea And Vomiting Simple Syrup 15 ml 07/30/18 13:59 Simple Syrup FEEDTUBE PRN PRN Hypoglycemia Simple Syrup 30 ml 07/30/18 13:59 Simple Syrup FEEDTUBE PRN PRN Hypoglycemia Sodium Bicarbonate 325 mg 07/30/18 13:59 Sodium Bicarbonate FEEDTUBE PRN PRN For Clogged Feeding Tube Sodium Chloride 10 ml 07/30/18 10:00 08/20/18 12:03 Sodium Chloride Flush Syringe 10 Ml IV 10 ml BID NORA Administration Sodium Chloride 10 ml 07/30/18 02:50 Sodium Chloride Flush Syringe 10 Ml IV PRN PRN LINE FLUSH Zinc Sulfate 220 mg 07/30/18 10:00 08/20/18 12:02 Zinc Sulfate PO 220 mg QDAY NORA Administration Nutrition/Malnutrition Assess - Dietary Evaluation Nutrition/Malnutrition Findings: Nutrition Notes Start: 07/30/18 09:58 Freq: Status: Active Protocol: Document 08/20/18 14:11 EB (Rec: 08/20/18 14:14 EB [id number]) Co-Sign 08/20/18 14:11 LP Nutrition Notes Initial or Follow up Reassessment Current Diagnosis Coronary Artery Disease, Decubitus(Pressure Ulcer), Diabetes,Hypertension,Heart Failure Other Pertinent Diagnosis Septic shock, UTI, Seizure D/O , anemia Current Diet Nepro at 50mL/hr Labs/Tests K 3.1 Pertinent Medications Reviewed Height 5 ft 10 in Weight 58.5 kg [place] Body Weight (kg) 75.45 BMI 18.5 Subjective/Other Information F/u for TF tolerance. Pt moved from IMCU to [facility] and still receiving Nepro at 50 mL/hr and tolerating. Per Nurse Note , said pt can switch back to "previous TF," which was Promote 1.0 at 75 mL/hr Percent of energy/protein needs met: 100%/100% Burn Absent Trauma Absent #1 Nutrition Diagnosis Malnutrition Diagnosis Progress(for reassessment Continues documentation) Is patient on ventilator? No Is Patient Ambulatory and/or Out of Bed No REE-([place]-confined to bed) 1639.332 Kcal/Kg value to use for calculation 35 Approximate Energy Requirements Using 2048 kcal/Kg Calculation Used for Recommendations Kcal/kg Additional Notes protein (1.5-2g/kg): 88-117g fluid: 1mL/kcal or per Nutrition Intervention Change Diet Order: TF Nutrition Support: Continue Nepro at 50ml/hr Flush with 220ml q4h Kcal 2,160 Protein (gm) 97 Fluid (mL) 872 Goal #1 TF tolerance Goal #2 TF to continue to meet 100% energy and pro needs Goal #3 Wt maintenance and/or gain Goal #4 Wound healing Anticipated Discharge Needs: TF Follow-Up By: 08/26/18 Additional Comments Follow for stable TF
[2018-08-21] MEDS: HumuLIN R SUB-Q SCH ×3 (01:59→18:14)
[2018-08-21] MEDS: KEPPRA PO SCH ×2 (05:17→18:00)
[2018-08-21 06:38] LABS: BUN/Creatinine Ratio 53; Blood Urea Nitrogen 16 mg/dL (9-20); Calcium 8.6 mg/dL (8.4-10.2); Hemolysis Index 9
--- NOTE | 2018-08-21 06:56 | Progress Note ---
Assessment and Plan 1. Acute kidney injury: Vasomotor / hemodynamic MÓNICA in the setting of hypotension, sepsis and volume depletion. Renal function is better. Monitor renal function. Avoid nephrotoxic agents. Meds dosage based on GFR. 2. FEN: Hypokalemia, replete K. Replete Phos. Edema, improving. Change tube feeding to Glucerna 1.2 Monitor lytes. 3. Sepsis with shock: BP is better. Polymicrobial infection. Followed by ID. 4. Anemia: S/p PRBC. 5. Multiple decubitus ulcers: S/p debridement. Subjective Date of service: 08/21/18 Principal diagnosis: Chest Pain Interval history: Patient was seen and examined at the bedside. Objective - Vital Signs Vital signs: Vital Signs - 12hr 08/20/18 08/21/18 08/21/18 20:00 00:00 02:00 Temperature 99 F 99 F 100 F H Pulse Rate [ 116 H 123 H 96 H Left] Respiratory 20 20 20 Rate Blood Pressure 154/104 171/99 145/77 O2 Sat by Pulse 94 95 96 Oximetry 08/21/18 04:00 Temperature Pulse Rate [ 96 H Left] Respiratory 20 Rate Blood Pressure 146/78 O2 Sat by Pulse 98 Oximetry - General Appearance General appearance: well-developed, appears stated age, other (not in distress) EENT: ATNC, PERRL Respiratory: Present: Clear to Ascultation Cardiology: regular, S1S2, no murmurs Gastrointestinal: normoactive bowel sounds, no tenderness, other (PEG tube, Chaudhary catheter noted) Integumentary: ulcer, decubiti Neurologic: other (alert,not following command) Musculoskeletal: other (trace dependent edema noted) - Lab 08/20/18 04:32 08/21/18 05:31 Most recent lab results Calcium 8.6 mg/dL (8.4-10.2) 08/21/18 05:31 Phosphorus 1.90 mg/dL (2.5-4.5) L 08/21/18 05:31 Magnesium 1.80 mg/dL (1.7-2.3) 08/21/18 05:31 Urine Creatinine 27.3 mg/dL (0.1-20.0) H 07/31/18 Unknown Urine Sodium 99 mmol/L 07/31/18 Unknown Medications & Allergies - Medications Allergies/Adverse Reactions: Allergies tramadol Allergy (Verified 07/29/18 18:39) Unknown Home Medications: Home Medications Medication Instructions Recorded Confirmed Last Taken Type amLODIPine [Norvasc] 10 mg NGTUBE DAILY 06/02/16 07/30/18 Unknown History Multivit-Min/Iron Fum/Folic AC 1 each PO DAILY 03/24/18 07/30/18 Unknown History [Hnzog-Aqiissh-Rptiocjo Tablet] Carvedilol [Coreg] 6.25 mg PO Q12H 06/13/18 07/30/18 Unknown History Acetaminophen 650 mg NGTUBE Q6H PRN 07/30/18 07/30/18 Unknown History Apixaban [Eliquis] 2.5 mg PO Q12H 07/30/18 07/30/18 Unknown History AtorvaSTATin [Lipitor] 40 mg NGTUBE QHS 07/30/18 07/30/18 Unknown History Dutasteride 0.5 mg NGTUBE QAM 07/30/18 07/30/18 Unknown History Furosemide [Lasix TAB] 40 mg PO QDAY 07/30/18 07/30/18 Unknown History Ipratropium/Albuterol Sulfate 1 ampul IH BID 07/30/18 07/30/18 Unknown History [DUONEB *Not for PRN Use*] Lisinopril [Zestril TAB] 40 mg PO QDAY 07/30/18 07/30/18 Unknown History Oxycodone HCl/Acetaminophen 1 each PO Q8HR PRN 07/30/18 07/30/18 Unknown History [Percocet 7.5/325 mg] Tamsulosin [Flomax] 0.4 mg PO QDAY 07/30/18 07/30/18 Unknown History Vit C/Ascorbate Calcium,Sodium 500 mg NGTUBE BID 07/30/18 07/30/18 Unknown History [Vitamin C 500 mg/15 ml Liquid] Zinc Sulfate 220 mg NGTUBE QDAY 07/30/18 07/30/18 Unknown History diphenhydrAMINE [Benadryl CAP] 25 mg NGTUBE Q6H PRN 07/30/18 07/30/18 Unknown History levETIRAcetam [Keppra INJ] 500 mg PO Q12H 07/30/18 07/30/18 Unknown History Active Medications: Generic Name Dose Route Start Last Admin Trade Name Freq PRN Reason Stop Dose Admin Acetaminophen 650 mg 07/30/18 02:50 08/18/18 17:46 Tylenol PO 650 mg Q4H PRN Administration Pain MILD(1-3)/Fever >100.5/PRICE Lipase/Protease/Amylase 1 each 07/30/18 13:59 Pancreaze 10,500 Unit FEEDTUBE PRN PRN For Clogged Feeding Tube Ascorbic Acid 500 mg 07/30/18 10:00 08/20/18 23:45 Vitamin C PO 500 mg BID NORA Administration Atorvastatin Calcium 40 mg 08/04/18 22:00 08/20/18 23:45 Lipitor PO 40 mg QHS NORA Administration Carvedilol 3.125 mg 08/04/18 22:00 08/20/18 23:45 Coreg PO 3.125 mg BID NORA Administration Dextrose 50 ml 07/30/18 02:56 D50w (25gm) Syringe IV PRN PRN Hypoglycemia Hydrochlorothiazide 12.5 mg 08/12/18 19:22 08/20/18 12:00 Hctz PO 12.5 mg QDAY NORA Administration Insulin Human Regular 0 units 07/31/18 12:00 08/21/18 01:59 Humulin R SUB-Q Not Given Q6HR [facility] Protocol Levetiracetam 500 mg 07/30/18 06:00 08/21/18 05:17 Keppra PO 500 mg Q12H NORA Administration Ondansetron HCl 4 mg 07/30/18 02:50 Zofran IV Q8H PRN Nausea And Vomiting Simple Syrup 15 ml 07/30/18 13:59 08/20/18 23:45 Simple Syrup FEEDTUBE 15 ml PRN PRN Administration Hypoglycemia Simple Syrup 30 ml 07/30/18 13:59 Simple Syrup FEEDTUBE PRN PRN Hypoglycemia Sodium Bicarbonate 325 mg 07/30/18 13:59 Sodium Bicarbonate FEEDTUBE PRN PRN For Clogged Feeding Tube Sodium Chloride 10 ml 07/30/18 10:00 08/20/18 23:46 Sodium Chloride Flush Syringe 10 Ml IV 10 ml BID NORA Administration Sodium Chloride 10 ml 07/30/18 02:50 08/20/18 16:22 Sodium Chloride Flush Syringe 10 Ml IV 10 ml PRN PRN Administration LINE FLUSH Zinc Sulfate 220 mg 07/30/18 10:00 08/20/18 12:02 Zinc Sulfate PO 220 mg QDAY NORA Administration
--- NOTE | 2018-08-21 08:33 | Progress Note ---
Assessment and Plan Cultures: 07/29/2018 blood culture: E.coli, highly MDR, Proteus, beta hemolytic group G Streptococcus, Enterococcus Urine culture: mixed madeline 07/31/2018 blood culture: E. coli, 1 out of 4 bottles 08/06/2018: blood culture: no growth to date A/P: 67-year-old male who is a halfway resident who has been hospitalized multiple times to this hospital in the recent past. He has a history of stroke, dementia, CHF, COPD, diabetes, multiple chronic decubitus ulcers, indwelling Chaudhary catheter and multiple recurrent urinary tract infections, previous prostate abscess, hypertension was brought to the hospital this time with fevers and hypotension: 1) Septic shock secondary to polymicrobial bacteremia ESBL E coli, MDR Proteus, Strep and E faecalis: Source is probably multiple infected decubitus ulcers and less likely UTI. 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 Repeat blood cultures 08/06/2018 no growth to date. 2) UTI: Chaudhary was apparently exchanged in ED. Continue abx. 3) Extensive and multiple decubitus ulcers: Multiple hospitalizations in the recent past. Of note, during his last hospitalization in May 2018, patient was discharged with hospice. Unclear why he was rehospitalized, would strongly encourage hospice again. Continue wound care. Prognosis is extremely poor. LEFT HEEL UNSTAGEBALE PRESSURE INJURY. WOUND MEASURES 5X6.5X2. ESCHAR NOTED AROUND EDGES. MODERATE AMOUNT OF SLOUGH NOTED. THERE IS SOME PINK GRANULATION TISSUE. NO ODOR. MODERATE AMOUNT OF SEROSANGUINEOUS DRAINAGE. LEFT LATERAL MALLEOLUS NOTED TO HAVE A SCABBED AREA. SCANT DRAINAGE. LEFT KNEE WOUND ALMOST HEALED. SCANT DRAINAGE. RIGHT LATERAL GREAT TOE ESCHAR. MINIMAL BLEEDING FROM EDGES. MEASURES 2X1X0.1. RIGHT MEDIAL LOWER LEG PRESSURE STAGE 2 INJURY MEASURES 6.5X2.5X0.1. SMALL A MOUNT OF SEROSANGUINEOUS DRAINAGE NOTED. LEFT MEDIAL THIGH WOUND MEASURES 1X1.5X0.3. SMALL AMOUNT OF YELLOW DRAINAGE. NO ODOR. RIGHT LATERAL ANKLE UNSTAGEABLE PRESSURE INJURY. MEASURES 5.5X1.5X0.3. WOUND IS NECROTIC. SMALL AMOUNT OF GRAYISH SUMMERS DRAINAGE. NO ODOR. RIGHT LATERAL MALLEOLUS STAGE 3 PRESSURE INJURY MEASURES 3X2.5X0.3. COVERED WITH YELLOW SLOUGH. MODERATE AMOUNT OF SEROSANGUINEOUS DRAINAGE NOTED. NO ODOR. RIGHT MEDIAL HEEL UNSTAGEABLE PRESSURE ULCER. MEASURES 3.4X2X4. THERE IS A SMALL AMOUNT OF RED GRANULATION TISSUE NOTED, BUT WOUND PROBES TO 4CM AND THERE IS NECROTIC TISSUE NOTED IN THE BASE OF THAT AREA. MODERATE AMOUNT OF SEROUS UNSTAGEABLE LEFT HIP PRESSURE INJURY. MEASURES 7.5X6X5. MILD ODOR. WOUND IS NECROTIC IN THE BASE. HOWEVER THERE IS SOME GRANULATION TISSUE NOTED. LARGE AMOUNT OF SEROSANGUINEOUS DRAINAGE. UNSTAGEABLE SACRAL PRESSURE INJURY. MEASURES 14X8X1. MODERATE AMOUNT OF SEROSANGUINEOUS DRAINAGE NOTED. NO ODOR. THERE IS A NECROTIC AREA AT 9 OCLOCK. LEFT FLANK UNSTAGEABLE PRESSURE INJURY MEASURES 4X3X0.3. COVERED WITH YELLOW SLOUGH. SMALL AMOUNT OF YELLOW DRAINAGE. S/P bedside debridement on 08/07/[address] Man: Topical 4% Lidocaine was applied to his right lateral leg, right lateral ankle and sacral pressure ulcers. His right lateral leg, right lateral ankle and sacral pressure ulcers were surgically, excisionally debrided of necrotic skin and SQ tissue with a curette, scissors, scalpel and forceps. Bleeding was minimal and was controlled with pressure. Final wound measurements are as noted below. Wounds were then dressed by the Wound Care nurseMelissa. Pt was repositioned right side down. Topical 4% Lidocaine was applied to all of the below wounds. His left hip ulcer was surgically, excisionally debrided of necrotic muscle, fascia and bone with scissors and forceps. The left hip joint was grossly exposed during this debridement. Bleeding was minimal and was controlled with pressure. Final wound measurements are as noted below. Pt's left heel ulcer was then surgically, excisionally debrided of necrotic SQ tissue and muscle with forceps and scalpel. Bleeding was minimal and was controlled with pressure. Final wound measurements are as noted below. Finally, pt's left back and right medial leg ulcers were surgically, excisionally debrided of necrotic skin and SQ tissue with a curette, scalpel and forceps. Bleeding was minimal and was controlled with pressure. Final wound measurements are as noted below. All of these wounds were then dressed by the Wound Care nurseMelissa. Pt tolerated the procedure wel 4) Chronic Alk phos elevation, transaminases also elevated this time probably from shock liver. 5) ?septic arthritis of left hip from decubitus ulcer: poor prognosis. Recs: Continue Vabomere at 4gms IV every 8 hours total 14 days ending 08-20-18, D10 of D14 Multiple wound infections is incurable, further antibiotic therapy is futile and will only breed more resistance Poor prognosis [facility] M: [phone] O:[phone] Subjective Date of service: 08/21/18 Principal diagnosis: Chest Pain Interval history: Patient seen and examined. Asleep, easily arousable, no acute distress observed. + wound Vac. No family at bedside. Objective - Exam Narrative Exam: Constitutional: Asleep, easily arousable No acute distress Head, Ears, Nose: Normocephalic, atraumatic. External ears, nose normal Eyes: Conjunctivae/corneas clear. No icterus. No ptosis. Neck: Supple, no meningeal signs Oral: no thrush Cardiovascular: S1, S2 normal. Respiratory: Good air entry, clear to auscultation bilaterally GI: Soft, non-tender; bowel sounds normal. No peritoneal signs Musculoskeletal: No pedal edema, no cyanosis. Skin: multiple wounds.+ wound vac Hem/Lymphatic: No palpable cervical or supraclavicular nodes. No lymphangitis Psych: Mood ok. Affect Flat Neurological: Awake, alert, calm - Constitutional Vitals: Vital Signs Temp Pulse Resp BP Pulse Ox 100 F H 96 H 20 146/78 98 08/21/18 02:00 08/21/18 04:00 08/21/18 04:00 08/21/18 04:00 08/21/18 04:00 Temperature -Last 24 Hours Temperature 100 F Temperature 99 F Temperature 99 F Temperature 98.0 F - Labs CBC & Chem 7: 08/20/18 04:32 08/21/18 05:31 Labs: Abnormal lab results 08/20/18 08/20/18 08/21/18 Range/Units 12:38 23:35 05:31 Sodium 136 L (137-145) mmol/L Potassium 3.1 L (3.6-5.0) mmol/L Creatinine 0.3 L (0.8-1.5) mg/dL Glucose 114 H (75-100) mg/dL POC Glucose 106 H 63 L (70-105) Phosphorus 1.90 L (2.5-4.5) mg/dL 08/21/18 Range/Units 05:50 Sodium (137-145) mmol/L Potassium (3.6-5.0) mmol/L Creatinine (0.8-1.5) mg/dL Glucose (75-100) mg/dL POC Glucose 109 H (70-105) Phosphorus (2.5-4.5) mg/dL
[2018-08-21] MEDS: HCTZ PO SCH (10:06)
[2018-08-21] MEDS: VITAMIN C PO SCH ×2 (10:06→22:05)
[2018-08-21] MEDS: COREG PO SCH ×2 (10:06→22:01)
[2018-08-21] MEDS: SODIUM CHLORIDE FLUSH SYRINGE 10 ML IV SCH ×2 (10:07→22:02)
[2018-08-21] MEDS: ZINC SULFATE PO SCH (10:15)
[2018-08-21] MEDS: K-PHOS NEUTRAL PO SCH ×4 (10:15→22:01)
[2018-08-21] MEDS: KCL 10MEQ/100ML 10 MEQ/100 ML BAG IV SCH ×4 (14:46→18:02)
--- NOTE | 2018-08-21 15:46 | Progress Note ---
Assessment and Plan Assessment and plan: Septic shock, source could be decubitus ulcer -Recurrent fever. Per ID -Continue Vabomere at 4gms IV every 8 hours total 14 days ending 08-20-18, D10 of D14 Multiple wound infections is incurable, further antibiotic therapy is futile and will only breed more resistance Poor prognosis Bacteremia - Patient is currently on IV meropenem will continue 08/20, and was treated with tigecycline for 12 days stopped on 08/14 -ID consult appreciated "Complete 14 days of Vabomere for treatment of bacteremia. There is no role for prolonged antibiotic therapy. These wounds are incurable and this has been discussed with the patient and his daughter on the phone. Prolonged therapy will breed more resistance. Poor prognosis. " Abx to be completed today Swelling of the extremities; resolved Septic arthritis - Could be due to decubitus ulcer - Continue IV antibiotics, orthopedics consulted Symptomatic anemia; transfused and H/H stable Acute renal failure - resolved Patient is bedbound, contracted extremities - Continue supportive care Multiple decubitus ulcer - on wound vac - Dr Man consulted and did debridement Chest pain, chronic elevated troponin - Cardiology consulted and recommended conservative cardiac management DVT prophylaxis - SCDs because of severe anemia Disposition - Patient has multiple admissions. ID said the infection will recur once he stop the antibiotics. Recommend hospice but the family refused. CM is working for LTAC placement. pending insurance authorization. if not available will transfer back to [facility] Microbiology 07/29/18 18:53 Peripheral/Venous Blood Culture - Final Enterococcus Faecalis Escherichia Coli Escherichia Coli#2 Streptococcus Not Group D 07/29/18 18:50 Peripheral/Venous Blood Culture - Preliminary Beta Hemoltyic Strep Group G Proteus Mirabilis Proteus Mirabilis#2 07/30/18 Unknown Urine,Catheterized - Indwelling Catheter Urine Culture - Final 07/31/18 18:12 Stool Stool Occult Blood (RICARDO) - Final Extensive and multiple decubitus ulcers: Multiple hospitalizations in the recent past. Of note, during his last hospitalization in May 2018, patient was discharged with hospice. Unclear why he was rehospitalized, would strongly encourage hospice again. Continue wound care. Prognosis is extremely poor. LEFT HEEL UNSTAGEBALE PRESSURE INJURY. WOUND MEASURES 5X6.5X2. ESCHAR NOTED AROUND EDGES. MODERATE AMOUNT OF SLOUGH NOTED. THERE IS SOME PINK GRANULATION TISSUE. NO ODOR. MODERATE AMOUNT OF SEROSANGUINEOUS DRAINAGE. LEFT LATERAL MALLEOLUS NOTED TO HAVE A SCABBED AREA. SCANT DRAINAGE. LEFT KNEE WOUND ALMOST HEALED. SCANT DRAINAGE. RIGHT LATERAL GREAT TOE ESCHAR. MINIMAL BLEEDING FROM EDGES. MEASURES 2X1X0.1. RIGHT MEDIAL LOWER LEG PRESSURE STAGE 2 INJURY MEASURES 6.5X2.5X0.1. SMALL AMOUNT OF SEROSANGUINEOUS DRAINAGE NOTED. LEFT MEDIAL THIGH WOUND MEASURES 1X1.5X0.3. SMALL AMOUNT OF YELLOW DRAINAGE. NO ODOR. RIGHT LATERAL ANKLE UNSTAGEABLE PRESSURE INJURY. MEASURES 5.5X1.5X0.3. WOUND IS NECROTIC. SMALL AMOUNT OF GRAYISH SUMMERS DRAINAGE. NO ODOR. RIGHT LATERAL MALLEOLUS STAGE 3 PRESSURE INJURY MEASURES 3X2.5X0.3. COVERED WITH YELLOW SLOUGH. MODERATE AMOUNT OF SEROSANGUINEOUS DRAINAGE NOTED. NO ODOR. RIGHT MEDIAL HEEL UNSTAGEABLE PRESSURE ULCER. MEASURES 3.4X2X4. THERE IS A SMALL AMOUNT OF RED GRANULATION TISSUE NOTED, BUT WOUND PROBES TO 4CM AND THERE IS NECROTIC TISSUE NOTED IN THE BASE OF THAT AREA. MODERATE AMOUNT OF SEROUS UNSTAGEABLE LEFT HIP PRESSURE INJURY. MEASURES 7.5X6X5. MILD ODOR. WOUND IS NECROTIC IN THE BASE. HOWEVER THERE IS SOME GRANULATION TISSUE NOTED. LARGE AMOUNT OF SEROSANGUINEOUS DRAINAGE. UNSTAGEABLE SACRAL PRESSURE INJURY. MEASURES 14X8X1. MODERATE AMOUNT OF SEROSANGUINEOUS DRAINAGE NOTED. NO ODOR. THERE IS A NECROTIC AREA AT 9 OCLOCK. LEFT FLANK UNSTAGEABLE PRESSURE INJURY MEASURES 4X3X0.3. COVERED WITH YELLOW SLOUGH. SMALL AMOUNT OF YELLOW DRAINAGE. S/P bedside debridement on 08/07/[address] Man: Topical 4% Lidocaine was applied to his right lateral leg, right lateral ankle and sacral pressure ulcers. His right lateral leg, right lateral ankle and sacral pressure ulcers were surgically, excisionally debrided of necrotic skin and SQ tissue with a cur ette, scissors, scalpel and forceps. Bleeding was minimal and was controlled with pressure. Final wound measurements are as noted below. Wounds were then dressed by the Wound Care nurseMelissa. Pt was repositioned right side down. Topical 4% Lidocaine was applied to all of the below wounds. His left hip ulcer was surgically, excisionally debrided of necrotic muscle, fascia and bone with scissors and forceps. The left hip joint was grossly exposed during this debridement. Bleeding was minimal and was controlled with pressure. Final wound measurements are as noted below. Pt's left heel ulcer was then surgically, excisionally debrided of necrotic SQ tissue and muscle with forceps and scalpel. Bleeding was minimal and was controlled with pressure. Final wound measurements are as noted below. Finally, pt's left back and right medial leg ulcers were surgically, excisionally debrided of necrotic skin and SQ tissue with a curette, scalpel and forceps. Bleeding was minimal and was controlled with pressure. Final wound measurements are as noted below. All of these wounds were then dressed by the Wound Care nurseMelissa. Pt tolerated the procedure wel Transfer to [place] Still awaiting family to obtain consent. Multiple calls placed. History Interval history: Patient seen and examined, no new complaints. Still with intermittent fever per nursing staff. Continues to tolerate treatment Hospitalist Physical - Physical exam Narrative exam: Not in cardiopulmonary distress. The patient is malnurished. severely contracted, chronically ill and multiple pressure ulcers Vital signs as documented. Head exam is unremarkable. No scleral icterus . Neck is without jugular venous distension, thyromegaly, or carotid bruits. Lungs are clear to auscultation. Cardiac exam reveals regular rate and Rhythm. First and second heart sounds normal. No murmurs, rubs or gallops. Abdominal exam reveals normal bowel sounds, no masses, no organomegaly and no aortic enlargement. Extremities contracted. Swollen. Contracted [employer]: Contracted Skin; multiple decubitus ulcer present on admission, wound vac in place. - Constitutional Vitals: Temp Pulse Resp BP Pulse Ox 98.6 F 99 H 20 137/90 99 08/21/18 08:20 08/21/18 10:06 08/21/18 10:00 08/21/18 10:06 08/21/18 08:20 General appearance: Present: no acute distress, other (ill-looking) Results - Labs CBC & Chem 7: 08/20/18 04:32 08/21/18 05:31 Labs: Laboratory Last Values WBC 6.8 K/mm3 (4.5-11.0) 08/20/18 04:32 RBC 3.11 M/mm3 (3.65-5.03) L 08/20/18 04:32 Hgb 8.7 gm/dl (11.8-15.2) L 08/20/18 04:32 Hct 26.3 % (35.5-45.6) L 08/20/18 04:32 MCV 85 fl (84-94) 08/20/18 04:32 MCH 28 pg (28-32) 08/20/18 04:32 MCHC 33 % (32-34) 08/20/18 04:32 RDW 17.6 % (13.2-15.2) H 08/20/18 04:32 Plt Count 295 K/mm3 (140-440) 08/20/18 04:32 Lymph % (Auto) 11.1 % (13.4-35.0) L 08/12/18 06:00 Starke % (Auto) 8.0 % (0.0-7.3) H 08/12/18 06:00 Eos % (Auto) 3.0 % (0.0-4.3) 08/12/18 06:00 Baso % (Auto) 1.1 % (0.0-1.8) 08/12/18 06:00 Lymph # 1.3 K/mm3 (1.2-5.4) 08/12/18 06:00 Starke # 0.9 K/mm3 (0.0-0.8) H 08/12/18 06:00 Eos # 0.3 K/mm3 (0.0-0.4) 08/12/18 06:00 Baso # 0.1 K/mm3 (0.0-0.1) 08/12/18 06:00 Seg Neutrophils % 76.8 % (40.0-70.0) H 08/12/18 06:00 Seg Neutrophils # 8.8 K/mm3 (1.8-7.7) H 08/12/18 06:00 Sodium 136 mmol/L (137-145) L 08/21/18 05:31 Potassium 3.1 mmol/L (3.6-5.0) L 08/21/18 05:31 Chloride 99.2 mmol/L (98-107) 08/21/18 05:31 Carbon Dioxide 27 mmol/L (22-30) 08/21/18 05:31 Anion Gap 13 mmol/L 08/21/18 05:31 BUN 16 mg/dL (9-20) 08/21/18 05:31 Creatinine 0.3 mg/dL (0.8-1.5) L 08/21/18 05:31 Estimated GFR > 60 ml/min 08/21/18 05:31 BUN/Creatinine Ratio 53 % 08/21/18 05:31 Glucose 114 mg/dL (75-100) H 08/21/18 05:31 POC Glucose 111 (70-105) H 08/21/18 11:35 Lactic Acid 1.60 mmol/L (0.7-2.0) 07/30/18 03:26 Calcium 8.6 mg/dL (8.4-10.2) 08/21/18 05:31 Phosphorus 1.90 mg/dL (2.5-4.5) L 08/21/18 05:31 Magnesium 1.80 mg/dL (1.7-2.3) 08/21/18 05:31 Total Bilirubin 0.20 mg/dL (0.1-1.2) 08/20/18 04:32 Direct Bilirubin < 0.2 mg/dL (0-0.2) 08/05/18 03:54 AST 31 units/L (5-40) 08/20/18 04:32 ALT 23 units/L (7-56) 08/20/18 04:32 Alkaline Phosphatase 198 units/L (35-129) H 08/20/18 04:32 Troponin T 0.162 ng/mL (0.00-0.029) H* 08/01/18 05:45 Total Protein 6.6 g/dL (6.3-8.2) 08/20/18 04:32 Albumin 1.8 g/dL (3.9-5) L 08/20/18 04:32 Albumin/Globulin Ratio 0.4 % 08/20/18 04:32 Triglycerides 130 mg/dL (2-149) 08/01/18 05:45 Cholesterol 83 mg/dL (50-199) 08/01/18 05:45 LDL Cholesterol Direct 12 mg/dL (50-130) L 08/01/18 05:45 HDL Cholesterol 17 mg/dL (40-59) L 08/01/18 05:45 Cholesterol/HDL Ratio 4.88 % 08/01/18 05:45 Urine Color Lula (Yellow) 07/29/18 21:33 Urine Turbidity Cloudy (Clear) 07/29/18 21:33 Urine pH 5.0 (5.0-7.0) 07/29/18 21:33 Ur Specific Phenix 1.028 (1.003-1.030) 07/29/18 21:33 Urine Protein 100 mg/dl mg/dL (Negative) 07/29/18 21:33 Urine Glucose (UA) Neg mg/dL (Negative) 07/29/18 21:33 Urine Ketones Neg mg/dL (Negative) 07/29/18 21:33 Urine Blood Mod (Negative) 07/29/18 21:33 Urine Nitrite Neg (Negative) 07/29/18 21:33 Urine Bilirubin Neg (Negative) 07/29/18 21:33 Urine Urobilinogen 2.0 mg/dL (<2.0) 07/29/18 21:33 Ur Leukocyte Esterase Lg (Negative) 07/29/18 21:33 Urine WBC (Auto) > 182.0 /HPF (0.0-6.0) H 07/29/18 21:33 Urine RBC (Auto) > 182.0 /HPF (0.0-6.0) 07/29/18 21:33 Urine Bacteria (Auto) 4+ /HPF (Negative) 07/29/18 21:33 Urine WBC Clumps 3+ /HPF 07/29/18 21:33 Urine Mucus Few /HPF 07/29/18 21:33 Urine Eosinophils None seen (None Seen) 07/31/18 Unknown Urine Creatinine 27.3 mg/dL (0.1-20.0) H 07/31/18 Unknown Urine Sodium 99 mmol/L 07/31/18 Unknown Blood Type O POSITIVE 07/30/18 03:26 Antibody Screen Negative 07/30/18 03:26 Crossmatch See Detail 07/30/18 03:26 Active Medications - Current Medications Current Medications: Generic Name Dose Route Start Last Admin Trade Name Freq PRN Reason Stop Dose Admin Acetaminophen 650 mg 07/30/18 02:50 08/18/18 17:46 Tylenol PO 650 mg Q4H PRN Administration Pain MILD(1-3)/Fever >100.5/PRICE Lipase/Protease/Amylase 1 each 07/30/18 13:59 Pancreaze 10,500 Unit FEEDTUBE PRN PRN For Clogged Feeding Tube Ascorbic Acid 500 mg 07/30/18 10:00 08/21/18 10:06 Vitamin C PO 500 mg BID NORA Administration Atorvastatin Calcium 40 mg 08/04/18 22:00 08/20/18 23:45 Lipitor PO 40 mg QHS NORA Administration Carvedilol 3.125 mg 08/04/18 22:00 08/21/18 10:06 Coreg PO 3.125 mg BID NORA Administration Dextrose 50 ml 07/30/18 02:56 D50w (25gm) Syringe IV PRN PRN Hypoglycemia Hydrochlorothiazide 12.5 mg 08/12/18 19:22 08/21/18 10:06 Hctz PO 12.5 mg QDAY NORA Administration Potassium Chloride 10 meq in 100 mls @ 100 mls/hr 08/21/18 15:00 08/21/18 14:46 Kcl 10meq/100ml IV 08/21/18 18:59 100 mls/hr Q1H NORA Administration Insulin Human Regular 0 units 07/31/18 12:00 08/21/18 12:05 Humulin R SUB-Q Not Given Q6HR [facility] Protocol Levetiracetam 500 mg 07/30/18 06:00 08/21/18 05:17 Keppra PO 500 mg Q12H NORA Administration Ondansetron HCl 4 mg 07/30/18 02:50 Zofran IV Q8H PRN Nausea And Vomiting Simple Syrup 15 ml 07/30/18 13:59 08/20/18 23:45 Simple Syrup FEEDTUBE 15 ml PRN PRN Administration Hypoglycemia Simple Syrup 30 ml 07/30/18 13:59 Simple Syrup FEEDTUBE PRN PRN Hypoglycemia Sodium Bicarbonate 325 mg 07/30/18 13:59 Sodium Bicarbonate FEEDTUBE PRN PRN For Clogged Feeding Tube Sodium Chloride 10 ml 07/30/18 10:00 08/21/18 10:07 Sodium Chloride Flush Syringe 10 Ml IV 10 ml BID NORA Administration Sodium Chloride 10 ml 07/30/18 02:50 08/20/18 16:22 Sodium Chloride Flush Syringe 10 Ml IV 10 ml PRN PRN Administration LINE FLUSH Sodium Phosphate 250 mg 08/21/18 10:00 08/21/18 13:44 K-Phos Neutral PO 250 mg QID NORA Administration Zinc Sulfate 220 mg 07/30/18 10:00 08/21/18 10:15 Zinc Sulfate PO 220 mg QDAY NORA Administration Nutrition/Malnutrition Assess - Dietary Evaluation Nutrition/Malnutrition Findings: Nutrition Notes Start: 07/30/18 09:58 Freq: Status: Active Protocol: Document 08/20/18 14:11 EB (Rec: 08/20/18 14:14 EB [id number]) Co-Sign 08/20/18 14:11 LP Nutrition Notes Initial or Follow up Reassessment Current Diagnosis Coronary Artery Disease, Decubitus(Pressure Ulcer), Diabetes,Hypertension,Heart Failure Other Pertinent Diagnosis Septic shock, UTI, Seizure D/O , anemia Current Diet Nepro at 50mL/hr Labs/Tests K 3.1 Pertinent Medications Reviewed Height 5 ft 10 in Weight 58.5 kg [place] Body Weight (kg) 75.45 BMI 18.5 Subjective/Other Information F/u for TF tolerance. Pt moved from IMCU to [facility] and still receiving Nepro at 50 mL/hr and tolerating. Per Nurse Note , said pt can switch back to "previous TF," which was Promote 1.0 at 75 mL/hr Percent of energy/protein needs met: 100%/100% Burn Absent Trauma Absent #1 Nutrition Diagnosis Malnutrition Diagnosis Progress(for reassessment Continues documentation) Is patient on ventilator? No Is Patient Ambulatory and/or Out of Bed No REE-([place]-confined to bed) 1639.332 Kcal/Kg value to use for calculation 35 Approximate Energy Requirements Using 2048 kcal/Kg Calculation Used for Recommendations Kcal/kg Additional Notes protein (1.5-2g/kg): 88-117g fluid: 1mL/kcal or per Nutrition Intervention Change Diet Order: TF Nutrition Support: Continue Nepro at 50ml/hr Flush with 220ml q4h Kcal 2,160 Protein (gm) 97 Fluid (mL) 872 Goal #1 TF tolerance Goal #2 TF to continue to meet 100% energy and pro needs Goal #3 Wt maintenance and/or gain Goal #4 Wound healing Anticipated Discharge Needs: TF Follow-Up By: 08/26/18 Additional Comments Follow for stable TF
[2018-08-22 05:25] LABS: Hematocrit 25.7 % (35.5-45.6); Hemoglobin 8.7 gm/dl (11.8-15.2); Mean Corpuscular HGB Conc 34 % (32-34); Mean Corpuscular Volume 84 fl (84-94); Platelet Count 346 K/mm3 (140-440); Red Blood Count 3.06 M/mm3 (3.65-5.03); Red Cell Distribution Width 17.3 % (13.2-15.2)
[2018-08-22 05:51] LABS: BUN/Creatinine Ratio 43; Blood Urea Nitrogen 17 mg/dL (9-20); Calcium 8.1 mg/dL (8.4-10.2); Hemolysis Index 0
[2018-08-22] MEDS: KEPPRA PO SCH ×2 (06:01→18:30)
--- NOTE | 2018-08-22 08:58 | Progress Note ---
Assessment and Plan 1. Acute kidney injury: Vasomotor / hemodynamic MÓNICA in the setting of hypotension, sepsis and volume depletion. Renal function is better. Monitor renal function. Avoid nephrotoxic agents. Meds dosage based on GFR. 2. FEN: Hypokalemia, improved. Edema, improving. On tube feeding. Monitor lytes. 3. Sepsis with shock: BP is better. Polymicrobial infection. Followed by ID. 4. Anemia: S/p PRBC. 5. Multiple decubitus ulcers: S/p debridement. Subjective Date of service: 08/22/18 Principal diagnosis: Chest Pain Interval history: Patient was seen and examined at the bedside. Objective - Vital Signs Vital signs: Vital Signs - 12hr 08/21/18 08/22/18 22:01 02:31 Temperature 99.5 F Pulse Rate 91 H 96 H Respiratory 24 Rate Blood Pressure 161/83 147/77 O2 Sat by Pulse 90 Oximetry - General Appearance General appearance: well-developed, appears stated age, other (not in distress) EENT: ATNC Respiratory: Present: Clear to Ascultation Cardiology: regular, S1S2, no murmurs Gastrointestinal: normoactive bowel sounds, no tenderness, no distended, other (PEG tube noted, bright catheter noted) Integumentary: ulcer, decubiti Neurologic: other (opens eyes, not following any command) Musculoskeletal: other (trace dependent edema noted) - Lab 08/22/18 04:28 08/22/18 04:28 Most recent lab results Calcium 8.1 mg/dL (8.4-10.2) L 08/22/18 04:28 Phosphorus 2.60 mg/dL (2.5-4.5) D 08/22/18 04:28 Magnesium 1.80 mg/dL (1.7-2.3) 08/21/18 05:31 Urine Creatinine 27.3 mg/dL (0.1-20.0) H 07/31/18 Unknown Urine Sodium 99 mmol/L 07/31/18 Unknown Medications & Allergies - Medications Allergies/Adverse Reactions: Allergies tramadol Allergy (Verified 07/29/18 18:39) Unknown Home Medications: Home Medications Medication Instructions Recorded Confirmed Last Taken Type amLODIPine [Norvasc] 10 mg NGTUBE DAILY 06/02/16 07/30/18 Unknown History Multivit-Min/Iron Fum/Folic AC 1 each PO DAILY 03/24/18 07/30/18 Unknown History [Owdpv-[id number] Tablet] Carvedilol [Coreg] 6.25 mg PO Q12H 06/13/18 07/30/18 Unknown History Acetaminophen 650 mg NGTUBE Q6H PRN 07/30/18 07/30/18 Unknown History Apixaban [Eliquis] 2.5 mg PO Q12H 07/30/18 07/30/18 Unknown History AtorvaSTATin [Lipitor] 40 mg NGTUBE QHS 07/30/18 07/30/18 Unknown History Dutasteride 0.5 mg NGTUBE QAM 07/30/18 07/30/18 Unknown History Furosemide [Lasix TAB] 40 mg PO QDAY 07/30/18 07/30/18 Unknown History Ipratropium/Albuterol Sulfate 1 ampul IH BID 07/30/18 07/30/18 Unknown History [DUONEB *Not for PRN Use*] Lisinopril [Zestril TAB] 40 mg PO QDAY 07/30/18 07/30/18 Unknown History Oxycodone HCl/Acetaminophen 1 each PO Q8HR PRN 07/30/18 07/30/18 Unknown History [Percocet 7.5/325 mg] Tamsulosin [Flomax] 0.4 mg PO QDAY 07/30/18 07/30/18 Unknown History Vit C/Ascorbate Calcium,Sodium 500 mg NGTUBE BID 07/30/18 07/30/18 Unknown History [Vitamin C 500 mg/15 ml Liquid] Zinc Sulfate 220 mg NGTUBE QDAY 07/30/18 07/30/18 Unknown History diphenhydrAMINE [Benadryl CAP] 25 mg NGTUBE Q6H PRN 07/30/18 07/30/18 Unknown History levETIRAcetam [Keppra INJ] 500 mg PO Q12H 07/30/18 07/30/18 Unknown History Active Medications: Generic Name Dose Route Start Last Admin Trade Name Freq PRN Reason Stop Dose Admin Acetaminophen 650 mg 07/30/18 02:50 08/18/18 17:46 Tylenol PO 650 mg Q4H PRN Administration Pain MILD(1-3)/Fever >100.5/PRICE Lipase/Protease/Amylase 1 each 07/30/18 13:59 Pancreaze 10,500 Unit FEEDTUBE PRN PRN For Clogged Feeding Tube Ascorbic Acid 500 mg 07/30/18 10:00 08/21/18 22:05 Vitamin C PO 500 mg BID NORA Administration Atorvastatin Calcium 40 mg 08/04/18 22:00 08/21/18 22:01 Lipitor PO 40 mg QHS NORA Administration Carvedilol 3.125 mg 08/04/18 22:00 08/21/18 22:01 Coreg PO 3.125 mg BID NORA Administration Dextrose 50 ml 07/30/18 02:56 D50w (25gm) Syringe IV PRN PRN Hypoglycemia Hydrochlorothiazide 12.5 mg 08/12/18 19:22 08/21/18 10:06 Hctz PO 12.5 mg QDAY NORA Administration Insulin Human Regular 0 units 07/31/18 12:00 08/21/18 18:14 Humulin R SUB-Q Not Given Q6HR [facility] Protocol Levetiracetam 500 mg 07/30/18 06:00 08/22/18 06:01 Keppra PO 500 mg Q12H NORA Administration Ondansetron HCl 4 mg 07/30/18 02:50 Zofran IV Q8H PRN Nausea And Vomiting Simple Syrup 15 ml 07/30/18 13:59 08/20/18 23:45 Simple Syrup FEEDTUBE 15 ml PRN PRN Administration Hypoglycemia Simple Syrup 30 ml 07/30/18 13:59 Simple Syrup FEEDTUBE PRN PRN Hypoglycemia Sodium Bicarbonate 325 mg 07/30/18 13:59 Sodium Bicarbonate FEEDTUBE PRN PRN For Clogged Feeding Tube Sodium Chloride 10 ml 07/30/18 10:00 08/21/18 22:02 Sodium Chloride Flush Syringe 10 Ml IV 10 ml BID NORA Administration Sodium Chloride 10 ml 07/30/18 02:50 08/20/18 16:22 Sodium Chloride Flush Syringe 10 Ml IV 10 ml PRN PRN Administration LINE FLUSH Sodium Phosphate 250 mg 08/21/18 10:00 08/21/18 22:01 K-Phos Neutral PO 250 mg QID NORA Administration Zinc Sulfate 220 mg 07/30/18 10:00 08/21/18 10:15 Zinc Sulfate PO 220 mg QDAY NORA Administration
--- NOTE | 2018-08-22 09:49 | Progress Note ---
Assessment and Plan Cultures: 07/29/2018 blood culture: E.coli, highly MDR, Proteus, beta hemolytic group G Streptococcus, Enterococcus Urine culture: mixed madeline 07/31/2018 blood culture: E. coli, 1 out of 4 bottles 08/06/2018: blood culture: no growth A/P: 67-year-old male who is a retirement resident who has been hospitalized multiple times to this hospital in the recent past. He has a history of stroke, dementia, CHF, COPD, diabetes, multiple chronic decubitus ulcers, indwelling Chaudhary catheter and multiple recurrent urinary tract infections, previous prostate abscess, hypertension was brought to the hospital this time with fevers and hypotension: 1) Septic shock secondary to polymicrobial bacteremia ESBL E coli, MDR Proteus, Strep and E faecalis: Source is probably multiple infected decubitus ulcers and less likely UTI. 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 Repeat blood cultures 08/06/2018 no growth. 2) UTI: Chaudhary was apparently exchanged in ED. Completed antibiotic therapy 3) Extensive and multiple decubitus ulcers: Multiple hospitalizations in the recent past. Of note, during his last hospitalization in May 2018, patient was discharged with hospice. . Continue wound care. Prognosis is extremely poor. S/P bedside debridement on 08/07/[address] Man- completed 14 days of Vabomere 08/21/18. 4) Chronic Alk phos elevation, transaminases also elevated this time probably from shock liver. 5) ?septic arthritis of left hip from decubitus ulcer: poor prognosis. Recs: completed 14 days of Vabomere yesterday. Continue wound care Prognosis remains poor Family refused Hospice continue Contact isolation ID will sign off at this point, please call if there are any concerns Jacquie Jean Baptiste NP [facility] M: [id number] O:[phone] Subjective Date of service: 08/22/18 Principal diagnosis: Chest Pain Interval history: Patient seen and examined. Asleep, easily arousable, no acute distress observed. + wound Vac. No family at bedside. Objective - Exam Narrative Exam: Constitutional: Asleep, easily arousable No acute distress Head, Ears, Nose: Normocephalic, atraumatic. External ears, nose normal Eyes: Conjunctivae/corneas clear. No icterus. No ptosis. Neck: Supple, no meningeal signs Oral: no thrush Cardiovascular: S1, S2 normal. Respiratory: Good air entry, clear to auscultation bilaterally GI: Soft, non-tender; bowel sounds normal. No peritoneal signs Musculoskeletal: No pedal edema, no cyanosis. Skin: multiple wounds.+ wound vac Hem/Lymphatic: No palpable cervical or supraclavicular nodes. No lymphangitis Psych: Mood ok. Affect Flat Neurological: Awake, alert, calm - Constitutional Vitals: Vital Signs Temp Pulse Resp BP Pulse Ox 99.5 F 96 H 24 147/77 90 08/22/18 02:31 08/22/18 02:31 08/22/18 02:31 08/22/18 02:31 08/22/18 02:31 Temperature -Last 24 Hours Temperature 99.5 F Temperature 99.1 F Temperature 99.1 F Temperature 99.0 F - Labs CBC & Chem 7: 08/22/18 04:28 08/22/18 04:28 Labs: Abnormal lab results 08/21/18 08/22/18 08/22/18 Range/Units 11:35 04:28 04:28 RBC 3.06 L (3.65-5.03) M/mm3 Hgb 8.7 L (11.8-15.2) gm/dl Hct 25.7 L (35.5-45.6) % RDW 17.3 H (13.2-15.2) % Sodium 135 L (137-145) mmol/L Chloride 96.6 L (98-107) mmol/L Creatinine 0.4 L (0.8-1.5) mg/dL Glucose 101 H (75-100) mg/dL POC Glucose 111 H (70-105) Calcium 8.1 L (8.4-10.2) mg/dL
[2018-08-22] MEDS: VITAMIN C PO SCH ×2 (11:26→21:43)
[2018-08-22] MEDS: K-PHOS NEUTRAL PO SCH ×4 (11:26→21:42)
[2018-08-22] MEDS: COREG PO SCH ×2 (11:27→21:43)
[2018-08-22] MEDS: SODIUM CHLORIDE FLUSH SYRINGE 10 ML IV SCH ×2 (11:27→21:46)
[2018-08-22] MEDS: HCTZ PO SCH (11:27)
[2018-08-22] MEDS: ZINC SULFATE PO SCH (11:27)
[2018-08-22] MEDS: HumuLIN R SUB-Q SCH ×4 (12:30→21:45)
--- NOTE | 2018-08-22 15:31 | Progress Note ---
Assessment and Plan Assessment and plan: Septic shock, source could be decubitus ulcer -Recurrent fever. Per ID -Continue Vabomere at 4gms IV every 8 hours total 14 days ending 08-20-18, D10 of D14 Multiple wound infections is incurable, further antibiotic therapy is futile and will only breed more resistance Poor prognosis Bacteremia - Patient is currently on IV meropenem will continue 08/20, and was treated with tigecycline for 12 days stopped on 08/14 -ID consult appreciated "Complete 14 days of Vabomere for treatment of bacteremia. There is no role for prolonged antibiotic therapy. These wounds are incurable and this has been discussed with the patient and his daughter on the phone. Prolonged therapy will breed more resistance. Poor prognosis. " Abx to be completed today Swelling of the extremities; resolved Septic arthritis - Could be due to decubitus ulcer - Continue IV antibiotics, orthopedics consulted Symptomatic anemia; transfused and H/H stable Acute renal failure - resolved Patient is bedbound, contracted extremities - Continue supportive care Multiple decubitus ulcer - on wound vac - Dr Man consulted and did debridement Chest pain, chronic elevated troponin - Cardiology consulted and recommended conservative cardiac management DVT prophylaxis - SCDs because of severe anemia Disposition - Patient has multiple admissions. ltac declined. Patient unfortunatly will continue to have recurrent fever and continuation of antibiotics will not yield a more favorable outcome Microbiology 07/29/18 18:53 Peripheral/Venous Blood Culture - Final Enterococcus Faecalis Escherichia Coli Escherichia Coli#2 Streptococcus Not Group D 07/29/18 18:50 Peripheral/Venous Blood Culture - Preliminary Beta Hemoltyic Strep Group G Proteus Mirabilis Proteus Mirabilis#2 07/30/18 Unknown Urine,Catheterized - Indwelling Catheter Urine Culture - F inal 07/31/18 18:12 Stool Stool Occult Blood (RICARDO) - Final Extensive and multiple decubitus ulcers: Multiple hospitalizations in the recent past. Of note, during his last hospitalization in May 2018, patient was discharged with hospice. Unclear why he was rehospitalized, would strongly encourage hospice again. Continue wound care. Prognosis is extremely poor. LEFT HEEL UNSTAGEBALE PRESSURE INJURY. WOUND MEASURES 5X6.5X2. ESCHAR NOTED AROUND EDGES. MODERATE AMOUNT OF SLOUGH NOTED. THERE IS SOME PINK GRANULATION TISSUE. NO ODOR. MODERATE AMOUNT OF SEROSANGUINEOUS DRAINAGE. LEFT LATERAL MALLEOLUS NOTED TO HAVE A SCABBED AREA. SCANT DRAINAGE. LEFT KNEE WOUND ALMOST HEALED. SCANT DRAINAGE. RIGHT LATERAL GREAT TOE ESCHAR. MINIMAL BLEEDING FROM EDGES. MEASURES 2X1X0.1. RIGHT MEDIAL LOWER LEG PRESSURE STAGE 2 INJURY MEASURES 6.5X2.5X0.1. SMALL AMOUNT OF SEROSANGUINEOUS DRAINAGE NOTED. LEFT MEDIAL THIGH WOUND MEASURES 1X1.5X0.3. SMALL AMOUNT OF YELLOW DRAINAGE. NO ODOR. RIGHT LATERAL ANKLE UNSTAGEABLE PRESSURE INJURY. MEASURES 5.5X1.5X0.3. WOUND IS NECROTIC. SMALL AMOUNT OF GRAYISH SUMMERS DRAINAGE. NO ODOR. RIGHT LATERAL MALLEOLUS STAGE 3 PRESSURE INJURY MEASURES 3X2.5X0.3. COVERED WITH YELLOW SLOUGH. MODERATE AMOUNT OF SEROSANGUINEOUS DRAINAGE NOTED. NO ODOR. RIGHT MEDIAL HEEL UNSTAGEABLE PRESSURE ULCER. MEASURES 3.4X2X4. THERE IS A SMALL AMOUNT OF RED GRANULATION TISSUE NOTED, BUT WOUND PROBES TO 4CM AND THERE IS NECROTIC TISSUE NOTED IN THE BASE OF THAT AREA. MODERATE AMOUNT OF SEROUS UNSTAGEABLE LEFT HIP PRESSURE INJURY. MEASURES 7.5X6X5. MILD ODOR. WOUND IS NECROTIC IN THE BASE. HOWEVER THERE IS SOME GRANULATION TISSUE NOTED. LARGE AMOUNT OF SEROSANGUINEOUS DRAINAGE. UNSTAGEABLE SACRAL PRESSURE INJURY. MEASURES 14X8X1. MODERATE AMOUNT OF SEROSANGUINEOUS DRAINAGE NOTED. NO ODOR. THERE IS A NECROTIC AREA AT 9 OCLOCK. LEFT FLANK UNSTAGEABLE PRESSURE INJURY MEASURES 4X3X0.3. COVERED WITH YELLOW SLOUGH. SMALL AMOUNT OF YELLOW DRAINAGE. S/P bedside debridement on 08/07/[address] Man: Topical 4% Lidocaine was applied to his right lateral leg, right lateral ankle and sacral pressure ulcers. His right lateral leg, right lateral ankle and sacral pressure ulcers were surgically, excisionally debrided of necrotic skin and SQ tissue with a curette, scissors, scalpel and forceps. Bleeding was minimal and was controlled with pressure. Final wound measurements are as noted below. Wounds were then dressed by the Wound Care nurse, Melissa. Pt was repositioned right side down. Topical 4% Lidocaine was applied to all of the below wounds. His left hip ulcer was surgically, excisionally debrided of necrotic muscle, fascia and bone with scissors and forceps. The left hip joint was grossly exposed during this debridement. Bleeding was minimal and was controlled with pressure. Final wound measurements are as noted below. Pt's left heel ulcer was then surgically, excisionally debrided of necrotic SQ tissue and muscle with forceps and scalpel. Bleeding was minimal and was controlled with pressure. Final wound measurements are as noted below. Finally, pt's left back and right medial leg ulcers were surgically, excisionally debrided of necrotic skin and SQ tissue with a curette, scalpel and forceps. Bleeding was minimal and was controlled with pressure. Final wound measurements are as noted below. All of these wounds were then dressed by the Wound Care nurse, Melissa. Pt tolerated the procedure wel Family refused hospice, Patient with intermittent low grade temp Completed abx History Interval history: Patient seen and examined, no new complaints. Still with intermittent fever per nursing staff. Continues to tolerate treatment, completed abx Hospitalist Physical - Physical exam Narrative exam: Not in cardiopulmonary distress. The patient is malnurished. severely contracted, chronically ill and multiple pressure ulcers Vital signs as documented. Head exam is unremarkable. No scleral icterus . Neck is without jugular venous distension, thyromegaly, or carotid bruits. Lungs are clear to auscultation. Cardiac exam reveals regular rate and Rhythm. First and second heart sounds normal. No murmurs, rubs or gallops. Abdominal exam reveals normal bowel sounds, no masses, no organomegaly and no aortic enlargement. Extremities contracted. Swollen. Contracted [employer]: Contracted Skin; multiple decubitus ulcer present on admission, wound vac in place. - Constitutional Vitals: Temp Pulse Resp BP Pulse Ox 100.1 F H 93 H 18 137/85 96 08/22/18 07:51 08/22/18 07:51 08/22/18 07:51 08/22/18 07:51 08/22/18 07:51 General appearance: Present: no acute distress, other (ill-looking) Results - Labs CBC & Chem 7: 08/22/18 04:28 08/22/18 04:28 Labs: Laboratory Last Values WBC 8.3 K/mm3 (4.5-11.0) 08/22/18 04:28 RBC 3.06 M/mm3 (3.65-5.03) L 08/22/18 04:28 Hgb 8.7 gm/dl (11.8-15.2) L 08/22/18 04:28 Hct 25.7 % (35.5-45.6) L 08/22/18 04:28 MCV 84 fl (84-94) 08/22/18 04:28 MCH 28 pg (28-32) 08/22/18 04:28 MCHC 34 % (32-34) 08/22/18 04:28 RDW 17.3 % (13.2-15.2) H 08/22/18 04:28 Plt Count 346 K/mm3 (140-440) 08/22/18 04:28 Lymph % (Auto) 11.1 % (13.4-35.0) L 08/12/18 06:00 [place] % (Auto) 8.0 % (0.0-7.3) H 08/12/18 06:00 Eos % (Auto) 3.0 % (0.0-4.3) 08/12/18 06:00 Baso % (Auto) 1.1 % (0.0-1.8) 08/12/18 06:00 Lymph # 1.3 K/mm3 (1.2-5.4) 08/12/18 06:00 [place] # 0.9 K/mm3 (0.0-0.8) H 08/12/18 06:00 Eos # 0.3 K/mm3 (0.0-0.4) 08/12/18 06:00 Baso # 0.1 K/mm3 (0.0-0.1) 08/12/18 06:00 Seg Neutrophils % 76.8 % (40.0-70.0) H 08/12/18 06:00 Seg Neutrophils # 8.8 K/mm3 (1.8-7.7) H 08/12/18 06:00 Sodium 135 mmol/L (137-145) L 08/22/18 04:28 Potassium 4.0 mmol/L (3.6-5.0) D 08/22/18 04:28 Chloride 96.6 mmol/L (98-107) L 08/22/18 04:28 Carbon Dioxide 27 mmol/L (22-30) 08/22/18 04:28 Anion Gap 15 mmol/L 08/22/18 04:28 BUN 17 mg/dL (9-20) 08/22/18 04:28 Creatinine 0.4 mg/dL (0.8-1.5) L 08/22/18 04:28 Estimated GFR > 60 ml/min 08/22/18 04:28 BUN/Creatinine Ratio 43 % 08/22/18 04:28 Glucose 101 mg/dL (75-100) H 08/22/18 04:28 POC Glucose 87 (70-105) 08/22/18 11:54 Lactic Acid 1.60 mmol/L (0.7-2.0) 07/30/18 03:26 Calcium 8.1 mg/dL (8.4-10.2) L 08/22/18 04:28 Phosphorus 2.60 mg/dL (2.5-4.5) D 08/22/18 04:28 Magnesium 1.80 mg/dL (1.7-2.3) 08/21/18 05:31 Total Bilirubin 0.20 mg/dL (0.1-1.2) 08/20/18 04:32 Direct Bilirubin < 0.2 mg/dL (0-0.2) 08/05/18 03:54 AST 31 units/L (5-40) 08/20/18 04:32 ALT 23 units/L (7-56) 08/20/18 04:32 Alkaline Phosphatase 198 units/L (35-129) H 08/20/18 04:32 Troponin T 0.162 ng/mL (0.00-0.029) H* 08/01/18 05:45 Total Protein 6.6 g/dL (6.3-8.2) 08/20/18 04:32 Albumin 1.8 g/dL (3.9-5) L 08/20/18 04:32 Albumin/Globulin Ratio 0.4 % 08/20/18 04:32 Triglycerides 130 mg/dL (2-149) 08/01/18 05:45 Cholesterol 83 mg/dL (50-199) 08/01/18 05:45 LDL Cholesterol Direct 12 mg/dL (50-130) L 08/01/18 05:45 HDL Cholesterol 17 mg/dL (40-59) L 08/01/18 05:45 Cholesterol/HDL Ratio 4.88 % 08/01/18 05:45 Urine Color Lula (Yellow) 07/29/18 21:33 Urine Turbidity Cloudy (Clear) 07/29/18 21:33 Urine pH 5.0 (5.0-7.0) 07/29/18 21:33 Ur Specific Mineral 1.028 (1.003-1.030) 07/29/18 21:33 Urine Protein 100 mg/dl mg/dL (Negative) 07/29/18 21:33 Urine Glucose (UA) Neg mg/dL (Negative) 07/29/18 21:33 Urine Ketones Neg mg/dL (Negative) 07/29/18 21:33 Urine Blood Mod (Negative) 07/29/18 21:33 Urine Nitrite Neg (Negative) 07/29/18 21:33 Urine Bilirubin Neg (Negative) 07/29/18 21:33 Urine Urobilinogen 2.0 mg/dL (<2.0) 07/29/18 21:33 Ur Leukocyte Esterase Lg (Negative) 07/29/18 21:33 Urine WBC (Auto) > 182.0 /HPF (0.0-6.0) H 07/29/18 21:33 Urine RBC (Auto) > 182.0 /HPF (0.0-6.0) 07/29/18 21:33 Urine Bacteria (Auto) 4+ /HPF (Negative) 07/29/18 21:33 Urine WBC Clumps 3+ /HPF 07/29/18 21:33 Urine Mucus Few /HPF 07/29/18 21:33 Urine Eosinophils None seen (None Seen) 07/31/18 Unknown Urine Creatinine 27.3 mg/dL (0.1-20.0) H 07/31/18 Unknown Urine Sodium 99 mmol/L 07/31/18 Unknown Blood Type O POSITIVE 07/30/18 03:26 Antibody Screen Negative 07/30/18 03:26 Crossmatch See Detail 07/30/18 03:26 Active Medications - Current Medications Current Medications: Generic Name Dose Route Start Last Admin Trade Name Freq PRN Reason Stop Dose Admin Acetaminophen 650 mg 07/30/18 02:50 08/18/18 17:46 Tylenol PO 650 mg Q4H PRN Administration Pain MILD(1-3)/Fever >100.5/PRICE Lipase/Protease/Amylase 1 each 07/30/18 13:59 Pancreaze 10,500 Unit FEEDTUBE PRN PRN For Clogged Feeding Tube Ascorbic Acid 500 mg 07/30/18 10:00 08/22/18 11:26 Vitamin C PO 500 mg BID NORA Administration Atorvastatin Calcium 40 mg 08/04/18 22:00 08/21/18 22:01 Lipitor PO 40 mg QHS NORA Administration Carvedilol 3.125 mg 08/04/18 22:00 08/22/18 11:27 Coreg PO 3.125 mg BID NORA Administration Dextrose 50 ml 07/30/18 02:56 D50w (25gm) Syringe IV PRN PRN Hypoglycemia Hydrochlorothiazide 12.5 mg 08/12/18 19:22 08/22/18 11:27 Hctz PO 12.5 mg QDAY NORA Administration Insulin Human Regular 0 units 07/31/18 12:00 08/21/18 18:14 Humulin R SUB-Q Not Given Q6HR [facility] Protocol Levetiracetam 500 mg 07/30/18 06:00 08/22/18 06:01 Keppra PO 500 mg Q12H NORA Administration Ondansetron HCl 4 mg 07/30/18 02:50 Zofran IV Q8H PRN Nausea And Vomiting Simple Syrup 15 ml 07/30/18 13:59 08/20/18 23:45 Simple Syrup FEEDTUBE 15 ml PRN PRN Administration Hypoglycemia Simple Syrup 30 ml 07/30/18 13:59 Simple Syrup FEEDTUBE PRN PRN Hypoglycemia Sodium Bicarbonate 325 mg 07/30/18 13:59 Sodium Bicarbonate FEEDTUBE PRN PRN For Clogged Feeding Tube Sodium Chloride 10 ml 07/30/18 10:00 08/22/18 11:27 Sodium Chloride Flush Syringe 10 Ml IV 10 ml BID NORA Administration Sodium Chloride 10 ml 07/30/18 02:50 08/20/18 16:22 Sodium Chloride Flush Syringe 10 Ml IV 10 ml PRN PRN Administration LINE FLUSH Sodium Phosphate 250 mg 08/21/18 10:00 08/22/18 11:26 K-Phos Neutral PO 250 mg QID NORA Administration Zinc Sulfate 220 mg 07/30/18 10:00 08/22/18 11:27 Zinc Sulfate PO 220 mg QDAY NORA Administration Nutrition/Malnutrition Assess - Dietary Evaluation Nutrition/Malnutrition Findings: Nutrition Notes Start: 07/30/18 09:58 Freq: Status: Active Protocol: Document 08/20/18 14:11 EB (Rec: 08/20/18 14:14 EB [id number]) Co-Sign 08/20/18 14:11 LP Nutrition Notes Initial or Follow up Reassessment Current Diagnosis Coronary Artery Disease, Decubitus(Pressure Ulcer), Diabetes,Hypertension,Heart Failure Other Pertinent Diagnosis Septic shock, UTI, Seizure D/O , anemia Current Diet Nepro at 50mL/hr Labs/Tests K 3.1 Pertinent Medications Reviewed Height 5 ft 10 in Weight 58.5 kg [place] Body Weight (kg) 75.45 BMI 18.5 Subjective/Other Information F/u for TF tolerance. Pt moved from IMCU to [facility] and still receiving Nepro at 50 mL/hr and tolerating. Per Nurse Note , said pt can switch back to "previous TF," which was Promote 1.0 at 75 mL/hr Percent of energy/protein needs met: 100%/100% Burn Absent Trauma Absent #1 Nutrition Diagnosis Malnutrition Diagnosis Progress(for reassessment Continues documentation) Is patient on ventilator? No Is Patient Ambulatory and/or Out of Bed No REE-([place]-confined to bed) 1639.332 Kcal/Kg value to use for calculation 35 Approximate Energy Requirements Using 2048 kcal/Kg Calculation Used for Recommendations Kcal/kg Additional Notes protein (1.5-2g/kg): 88-117g fluid: 1mL/kcal or per Nutrition Intervention Change Diet Order: TF Nutrition Support: Continue Nepro at 50ml/hr Flush with 220ml q4h Kcal 2,160 Protein (gm) 97 Fluid (mL) 872 Goal #1 TF tolerance Goal #2 TF to continue to meet 100% energy and pro needs Goal #3 Wt maintenance and/or gain Goal #4 Wound healing Anticipated Discharge Needs: TF Follow-Up By: 08/26/18 Additional Comments Follow for stable TF
[2018-08-22] MEDS: TYLENOL PO PRN (21:43)
[2018-08-23] MEDS: KEPPRA PO SCH (05:50)
--- NOTE | 2018-08-23 07:46 | Progress Note ---
Assessment and Plan 1. Acute kidney injury: Vasomotor / hemodynamic MÓNICA in the setting of hypotension, sepsis and volume depletion. Renal function is better. Monitor renal function. Avoid nephrotoxic agents. Meds dosage based on GFR. 2. FEN: Hypokalemia, improved. Edema, better. On tube feeding. Monitor lytes. 3. Sepsis with shock: BP is better. Polymicrobial infection. Followed by ID. 4. Anemia: S/p PRBC. 5. Multiple decubitus ulcers: S/p debridement. Will sign off and see patient if needed. Subjective Date of service: 08/23/18 Principal diagnosis: Chest Pain Interval history: Patient was seen and examined at the bedside. Objective - Vital Signs Vital signs: Vital Signs - 12hr 08/22/18 08/22/18 08/23/18 21:43 22:05 03:29 Temperature 98.4 F 98.1 F Pulse Rate 91 H 92 H 86 Respiratory 32 H 16 Rate Blood Pressure 137/75 143/71 149/70 O2 Sat by Pulse 92 97 Oximetry - General Appearance General appearance: well-developed, appears stated age, other (not in distress) EENT: ATNC, PERRL Respiratory: Present: Clear to Ascultation Cardiology: regular, S1S2, no murmurs Gastrointestinal: normoactive bowel sounds, no tenderness, other (PEG tube noted) Integumentary: ulcer, decubiti Neurologic: other (barely able to move the hands) Musculoskeletal: other (trace pedal edema) - Lab 08/22/18 04:28 08/22/18 04:28 Most recent lab results Calcium 8.1 mg/dL (8.4-10.2) L 08/22/18 04:28 Phosphorus 2.60 mg/dL (2.5-4.5) D 08/22/18 04:28 Magnesium 1.80 mg/dL (1.7-2.3) 08/21/18 05:31 Urine Creatinine 27.3 mg/dL (0.1-20.0) H 07/31/18 Unknown Urine Sodium 99 mmol/L 07/31/18 Unknown Medications & Allergies - Medications Allergies/Adverse Reactions: Allergies tramadol Allergy (Verified 07/29/18 18:39) Unknown Home Medications: Home Medications Medication Instructions Recorded Confirmed Last Taken Type Multivit-Min/Iron Fum/Folic AC 1 each PO DAILY 03/24/18 07/30/18 Unknown History [Retzz-Sjyfpsc-Cmhnipyh Tablet] Acetaminophen 650 mg NGTUBE Q6H PRN 07/30/18 07/30/18 Unknown History AtorvaSTATin [Lipitor] 40 mg NGTUBE QHS 07/30/18 07/30/18 Unknown History Dutasteride 0.5 mg NGTUBE QAM 07/30/18 07/30/18 Unknown History Ipratropium/Albuterol Sulfate 1 ampul IH BID 07/30/18 07/30/18 Unknown History [DUONEB *Not for PRN Use*] Lisinopril [Zestril TAB] 40 mg PO QDAY 07/30/18 07/30/18 Unknown History Tamsulosin [Flomax] 0.4 mg PO QDAY 07/30/18 07/30/18 Unknown History Vit C/Ascorbate Calcium,Sodium 500 mg NGTUBE BID 07/30/18 07/30/18 Unknown History [Vitamin C 500 mg/15 ml Liquid] Zinc Sulfate 220 mg NGTUBE QDAY 07/30/18 07/30/18 Unknown History levETIRAcetam [Keppra INJ] 500 mg PO Q12H 07/30/18 07/30/18 Unknown History Carvedilol [Coreg] 3.125 mg PO BID #60 tablet 08/23/18 Unknown Rx Furosemide [Lasix] 20 mg PO QDAY #30 tablet 08/23/18 Unknown Rx Oxycodone HCl/Acetaminophen 1 each PO Q8HR PRN #14 tablet 08/23/18 Unknown Rx [Percocet 7.5/325 mg] Phosphorus #1 [K-Phos Neutral] 250 mg PO QID #30 tablet 08/23/18 Unknown Rx hydroCHLOROthiazide [HCTZ] 12.5 mg PO QDAY #30 tablet 08/23/18 Unknown Rx Active Medications: Generic Name Dose Route Start Last Admin Trade Name Freq PRN Reason Stop Dose Admin Acetaminophen 650 mg 07/30/18 02:50 08/22/18 21:43 Tylenol PO 650 mg Q4H PRN Administration Pain MILD(1-3)/Fever >100.5/PRICE Lipase/Protease/Amylase 1 each 07/30/18 13:59 Pancrenomi Moore 10,500 Unit FEEDTUBE PRN PRN For Clogged Feeding Tube Ascorbic Acid 500 mg 07/30/18 10:00 08/22/18 21:43 Vitamin C PO 500 mg BID NORA Administration Atorvastatin Calcium 40 mg 08/04/18 22:00 08/22/18 21:43 Lipitor PO 40 mg QHS NORA Administration Carvedilol 3.125 mg 08/04/18 22:00 08/22/18 21:43 Coreg PO 3.125 mg BID NORA Administration Dextrose 50 ml 07/30/18 02:56 D50w (25gm) Syringe IV PRN PRN Hypoglycemia Hydrochlorothiazide 12.5 mg 08/12/18 19:22 08/22/18 11:27 Hctz PO 12.5 mg QDAY NORA Administration Insulin Human Regular 0 units 07/31/18 12:00 08/22/18 21:45 Humulin R SUB-Q Not Given Q6HR [facility] Protocol Levetiracetam 500 mg 07/30/18 06:00 08/23/18 05:50 Keppra PO 500 mg Q12H NORA Administration Ondansetron HCl 4 mg 07/30/18 02:50 Zofran IV Q8H PRN Nausea And Vomiting Simple Syrup 15 ml 07/30/18 13:59 08/20/18 23:45 Simple Syrup FEEDTUBE 15 ml PRN PRN Administration Hypoglycemia Simple Syrup 30 ml 07/30/18 13:59 Simple Syrup FEEDTUBE PRN PRN Hypoglycemia Sodium Bicarbonate 325 mg 07/30/18 13:59 Sodium Bicarbonate FEEDTUBE PRN PRN For Clogged Feeding Tube Sodium Chloride 10 ml 07/30/18 10:00 08/22/18 21:46 Sodium Chloride Flush Syringe 10 Ml IV 10 ml BID NORA Administration Sodium Chloride 10 ml 07/30/18 02:50 08/20/18 16:22 Sodium Chloride Flush Syringe 10 Ml IV 10 ml PRN PRN Administration LINE FLUSH Sodium Phosphate 250 mg 08/21/18 10:00 08/22/18 21:42 K-Phos Neutral PO 250 mg QID NORA Administration Zinc Sulfate 220 mg 07/30/18 10:00 08/22/18 11:27 Zinc Sulfate PO 220 mg QDAY NORA Administration
--- NOTE | 2018-08-23 08:51 | Discharge Summary ---
Providers - Providers Date of Admission: 07/29/18 23:44 Attending physician: TRACEY ROTH MD 07/30/18 02:56 Consult to Dietitian/Nutrition [CONS] Routine Physician Instructions: Reason For Exam: Reason for Consult: Patient on ventilator Reason for Consult: Write/Manage Tube Feeding 07/30/18 04:55 Consult to Physician [CONS] Routine Comment: Consulting Provider: LORI FINLEY Physician Instructions: Reason For Exam: possible septic arthritis 07/30/18 04:57 Consult to Physician [CONS] Routine Comment: Consulting Provider: ADRY CHRISTIAN Physician Instructions: Reason For Exam: arf 07/30/18 13:40 Consult to Wound/ET Nurse [CONS] Routine Reason For Exam: wound eval 07/31/18 11:48 Consult to Dietitian/Nutrition [CONS] Routine Physician Instructions: Assess nutrtn needs, initiate, modify, manage TF Reason For Exam: Reason for Consult: Write/Manage Tube Feeding Reason for Consult: Write/Manage Tube Feeding 07/31/18 16:38 Consult to Physician [CONS] Routine Comment: Consulting Provider: YAHAIRA PORTILLO Physician Instructions: Reason For Exam: Sepsis, bacteremia 08/06/18 13:39 Consult to Physician [CONS] Urgent Comment: Consulting Provider: FABRICIO MAN Physician Instructions: Reason For Exam: EVALUATE FOR POSSIBLE DEBRIDMENT 08/10/18 14:30 Consult to Dietitian/Nutrition [CONS] Routine Physician Instructions: Assess nutrtn needs, initiate, modify, manage TF Reason For Exam: Reason for Consult: Write/Manage Tube Feeding Reason for Consult: Write/Manage Tube Feeding 08/16/18 11:54 Consult to PICC Line RN [CONS] Routine Reason For Exam: ID ordered with need 14 days of IV antibiotics Type Line:: PICC Primary care physician: VB DEVELOPER Hospitalization Reason for admission: SEPTIC SHOCK Condition: Stable Hospital course: 67 year old man with dementia, hypertension, CHF, seizure, CAD , BPH, diabetes was sent to the emergency room from [facility] because he was hypotensive with systolic blood pressure 60S. In the emergency room he was given IV fluid, started on IV Levophed drip AND antibiotic. His Chaudhary was changed in the emergency room. He is unable to provide a history, Review of system is unobtainable. Mass admission in May show that patient has been anemic, he was transfused blood Septic shock, source could be decubitus ulcer -Treated with Vabomere at 4gms IV every 8 hours total 14 days ended 08-20-18, D10 of D14 Multiple wound infections is incurable, further antibiotic therapy is futile and will only breed more resistance Poor prognosis Bacteremia - Patient Treated with IV meropenem till 08/20, and was treated with tigecycline for 12 days stopped on 08/14 -ID consult appreciated "Complete 14 days of Vabomere for treatment of bacteremia. There is no role for prolonged antibiotic therapy. These wounds are incurable and this has been discussed with the patient and his daughter on the phone. Prolonged therapy will breed more resistance. Poor prognosis. " Abx to be completed today Swelling of the extremities; resolved Septic arthritis - Could be due to decubitus ulcer - Continue IV antibiotics, orthopedics consulted Symptomatic anemia; transfused and H/H stable Acute renal failure Secondary nephrolithasis - resolved Multiple decubitus ulcer s/p Bedside debridement - on wound vac - Dr Man consulted and did debridement - Continue outpatient management Chest pain, chronic elevated troponin - Cardiology consulted and recommended conservative cardiac management Disposition - Patient has multiple admissions. ltac declined. Patient unfortunately will continue to have recurrent fever and continuation of antibiotics will not yield a more favorable outcome Microbiology 07/29/18 18:53 Peripheral/Venous Blood Culture - Final Enterococcus Faecalis Escherichia Coli Escherichia Coli#2 Streptococcus Not Group D 07/29/18 18:50 Peripheral/Venous Blood Culture - Preliminary Beta Hemoltyic Strep Group G Proteus Mirabilis Proteus Mirabilis#2 07/30/18 Unknown Urine,Catheterized - Indwelling Catheter Urine Culture - Final 07/31/18 18:12 Stool Stool Occult Blood (RICARDO) - Final Extensive and multiple decubitus ulcers: Multiple hospitalizations in the recent past. Of note, during his last hospitalization in May 2018, patient was discharged with hospice. Unclear why he was rehospitalized, would strongly encourage hospice again. Continue wound care. Prognosis is extremely poor. LEFT HEEL UNSTAGEBALE PRESSURE INJURY. WOUND MEASURES 5X6.5X2. ESCHAR NOTED AROUND EDGES. MODERATE AMOUNT OF SLOUGH NOTED. THERE IS SOME PINK GRANULATION TISSUE. NO ODOR. MODERATE AMOUNT OF SEROSANGUINEOUS DRAINAGE. LEFT LATERAL MALLEOLUS NOTED TO HAVE A SCABBED AREA. SCANT DRAINAGE. LEFT KNEE WOUND ALMOST HEALED. SCANT DRAINAGE. RIGHT LATERAL GREAT TOE ESCHAR. MINIMAL BLEEDING FROM EDGES. MEASURES 2X1X0.1. RIGHT MEDIAL LOWER LEG PRESSURE STAGE 2 INJURY MEASURES 6.5X2.5X0.1. SMALL AMOUNT OF SEROSANGUINEOUS DRAINAGE NOTED. LEFT MEDIAL THIGH WOUND MEASURES 1X1.5X0.3. SMALL AMOUNT OF YELLOW DRAINAGE. NO ODOR. RIGHT LATERAL ANKLE UNSTAGEABLE PRESSURE INJURY. MEASURES 5.5X1.5X0.3. WOUND IS NECROTIC. SMALL AMOUNT OF GRAYISH SUMMERS DRAINAGE. NO ODOR. RIGHT LATERAL MALLEOLUS STAGE 3 PRESSURE INJURY MEASURES 3X2.5X0.3. COVERED WITH YELLOW SLOUGH. MODERATE AMOUNT OF SEROSANGUINEOUS DRAINAGE NOTED. NO ODOR. RIGHT MEDIAL HEEL UNSTAGEABLE PRESSURE ULCER. MEASURES 3.4X2X4. THERE IS A SMALL AMOUNT OF RED GRANULATION TISSUE NOTED, BUT WOUND PROBES TO 4CM AND THERE IS NECROTIC TISSUE NOTED IN THE BASE OF THAT AREA. MODERATE AMOUNT OF SEROUS UNSTAGEABLE LEFT HIP PRESSURE INJURY. MEASURES 7.5X6X5. MILD ODOR. WOUND IS NECROTIC IN THE BASE. HOWEVER THERE IS SOME GRANULATION TISSUE NOTED. LARGE AMOUNT OF SEROSANGUINEOUS DRAINAGE. UNSTAGEABLE SACRAL PRESSURE INJURY. MEASURES 14X8X1. MODERATE AMOUNT OF SEROSANGUINEOUS DRAINAGE NOTED. NO ODOR. THERE IS A NECROTIC AREA AT 9 OCLOCK. LEFT FLANK UNSTAGEABLE PRESSURE INJURY MEASURES 4X3X0.3. COVERED WITH YELLOW SLOUGH. SMALL AMOUNT OF YELLOW DRAINAGE. S/P bedside debridement on 08/07/[address] Man: Topical 4% Lidocaine was applied to his right lateral leg, right lateral ankle and sacral pressure ulcers. His right lateral leg, right lateral ankle and sacral pressure ulcers were surgically, excisionally debrided of necrotic skin and SQ tissue with a curette, scissors, scalpel and forceps. Bleeding was minimal and was controlled with pressure. Final wound measurements are as noted below. Wounds were then dressed by the Wound Care nurse, Melissa. Pt was repositioned right side down. Topical 4% Lidocaine was applied to all of the below wounds. His left hip ulcer was surgically, excisionally debrided of necrotic muscle, fascia and bone with scissors and forceps. The left hip joint was grossly exposed during this debridement. Bleeding was minimal and was controlled with pressure. Final wound measurements are as noted below. Pt's left heel ulcer was then surgically, excisionally debrided of necrotic SQ tissue and muscle with forceps and scalpel. Bleeding was minimal and was controlled with pressure. Final wound measurements are as noted below. Finally, pt's left back and right medial leg ulcers were surgically, excisionally debrided of necrotic skin and SQ tissue with a curette, scalpel and forceps. Bleeding was minimal and was controlled with pressure. Final wound measurements are as noted below. All of these wounds were then dressed by the Wound Care nurse, Melissa. Pt tolerated the procedure wel Family refused hospice, No further temperature Completed abx will transfer back to the Nursing facility. Disposition: [id number]/[id number] SNF W [facility] CERT Time spent for discharge: 35 mins Core Measure Documentation - Palliative Care Palliative Care/ Comfort Measures: Not Applicable - Core Measures Any of the following diagnoses?: none Exam - Physical Exam Narrative exam: Not in cardiopulmonary distress. The patient is malnurished. severely contracted, chronically ill and multiple pressure ulcers Vital signs as documented. Head exam is unremarkable. No scleral icterus . Neck is without jugular venous distension, thyromegaly, or carotid bruits. Lungs are clear to auscultation. Cardiac exam reveals regular rate and Rhythm. First and second heart sounds normal. No murmurs, rubs or gallops. Abdominal exam reveals normal bowel sounds, no masses, no organomegaly and no aortic enlargement. Extremities contracted. Swollen. 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 - Constitutional Vitals: Temp Pulse Resp BP Pulse Ox 98.8 F 89 20 148/73 93 08/23/18 07:25 08/23/18 07:25 08/23/18 07:25 08/23/18 07:25 08/23/18 07:25 Plan Activity: advance as tolerated, fall precautions Diet: advance as tolerated Special Instructions: record daily weights, record daily BP diary, occupational therapy, home health RN Follow up with: PRIMARY CAREMD [Primary Care Provider] - 3-5 Days MP REYES MD [Staff Physician] - 7 Days FABRICIO MAN MD [Staff Physician] - 7 Days ROMULO IYER MD [Staff Physician] - 7 Days PADMINI OWEN MD [Staff Physician] - 7 Days JOSE ALFREDO MONTANA MD [Staff Physician] - 7 Days Prescriptions: Carvedilol [Coreg] 3.125 mg PO BID #60 tablet hydroCHLOROthiazide [HCTZ] 12.5 mg PO QDAY #30 tablet Phosphorus #1 [K-Phos Neutral] 250 mg PO QID #30 tablet Furosemide [Lasix] 20 mg PO QDAY #30 tablet Oxycodone HCl/Acetaminophen [Percocet 7.5/325 mg] 1 each PO Q8HR PRN #14 tablet PRN Reason: Pain
[2018-08-23] MEDS: K-PHOS NEUTRAL PO SCH (11:18)
[2018-08-23] MEDS: COREG PO SCH (11:18)
[2018-08-23] MEDS: HCTZ PO SCH (11:19)
[2018-08-23] MEDS: ZINC SULFATE PO SCH (11:21)
[2018-08-23] MEDS: SODIUM CHLORIDE FLUSH SYRINGE 10 ML IV SCH (11:21)
[2018-08-23] MEDS: VITAMIN C PO SCH (11:22)
[2018-08-23 15:08] VITALS: BP 136/75
== END 2018-08-23 16:00 | DRG 853 ==
LOC: EDBD → ED 18:26 → CC1 23:44 → IMCU 08-02 12:37 → 2B-ACE 08-20 13:43
PROVIDERS: ADMIT Internal Medicine; ATTEND Internal Medicine
PROC: 06HM33Z Insertion of Infusion Device into Right Femoral Vein, Percutaneous Approach (ICD-10-PCS; 2018-07-29)
PROC: 30233N1 Transfusion of Nonautologous Red Blood Cells into Peripheral Vein, Percutaneous Approach (ICD-10-PCS; 2018-07-30)
PROC: 0JB70ZZ Excision of Back Subcutaneous Tissue and Fascia, Open Approach (ICD-10-PCS; principal; 2018-08-07)
PROC: 0JBQ0ZZ Excision of Right Foot Subcutaneous Tissue and Fascia, Open Approach (ICD-10-PCS; 2018-08-07)
PROC: 0JBL0ZZ Excision of Right Upper Leg Subcutaneous Tissue and Fascia, Open Approach (ICD-10-PCS; 2018-08-07)
PROC: 0QB70ZZ Excision of Left Upper Femur, Open Approach (ICD-10-PCS; 2018-08-07)
PROC: 0KBW0ZZ Excision of Left Foot Muscle, Open Approach (ICD-10-PCS; 2018-08-07)
PROC: 0JBN0ZZ Excision of Right Lower Leg Subcutaneous Tissue and Fascia, Open Approach (ICD-10-PCS; 2018-08-07)
PROC: 0QB70ZZ Excision of Left Upper Femur, Open Approach (ICD-10-PCS; 2018-08-14)
PROC: 0JB70ZZ Excision of Back Subcutaneous Tissue and Fascia, Open Approach (ICD-10-PCS; 2018-08-14)
PROC: 0JBR0ZZ Excision of Left Foot Subcutaneous Tissue and Fascia, Open Approach (ICD-10-PCS; 2018-08-14)
PROC: 0JBN0ZZ Excision of Right Lower Leg Subcutaneous Tissue and Fascia, Open Approach (ICD-10-PCS; 2018-08-14)
PROC: 0JBQ0ZZ Excision of Right Foot Subcutaneous Tissue and Fascia, Open Approach (ICD-10-PCS; 2018-08-14)
PROC: 0JBP0ZZ Excision of Left Lower Leg Subcutaneous Tissue and Fascia, Open Approach (ICD-10-PCS; 2018-08-14)
DX: A41.9 Sepsis, unspecified organism (principal); L89.224 Pressure ulcer of left hip, stage 4; R65.21 Severe sepsis with septic shock; K72.00 Acute and subacute hepatic failure without coma; N39.0 Urinary tract infection, site not specified; N17.9 Acute kidney failure, unspecified; E87.0 Hyperosmolality and hypernatremia; M00.9 Pyogenic arthritis, unspecified; I42.8 Other cardiomyopathies; F03.90 Unspecified dementia, unspecified severity, without behavioral disturbance, psychotic disturbance, mood disturbance, and anxiety; I50.9 Heart failure, unspecified; N40.0 Benign prostatic hyperplasia without lower urinary tract symptoms; I25.10 Atherosclerotic heart disease of native coronary artery without angina pectoris; E11.9 Type 2 diabetes mellitus without complications; D64.9 Anemia, unspecified; M79.89 Other specified soft tissue disorders; N20.0 Calculus of kidney; L89.519 Pressure ulcer of right ankle, unspecified stage; L89.159 Pressure ulcer of sacral region, unspecified stage; L89.629 Pressure ulcer of left heel, unspecified stage; I11.0 Hypertensive heart disease with heart failure; J44.9 Chronic obstructive pulmonary disease, unspecified; L89.619 Pressure ulcer of right heel, unspecified stage; Z82.49 Family history of ischemic heart disease and other diseases of the circulatory system; Z79.899 Other long term (current) drug therapy; Z86.73 Personal history of transient ischemic attack (TIA), and cerebral infarction without residual deficits; I25.2 Old myocardial infarction; Z87.442 Personal history of urinary calculi; Z93.1 Gastrostomy status; Z74.01 Bed confinement status
CPT/HCPCS: 36415; 36430; 51702; 71045; 74176; 80048; 80053; 80061; 80076; 81001; 82140; 82270; 82570; 82962; 83735; 84100; 84132; 84300; 84484; 85014; 85018; 85025; 85027; 86850; 86900; 86901; 86920; 87040; 87076; 87086; 87186; 89050; 93005; 93010; 94760; G0378; A9270-GY; J0610; J0692; J1205; J1265; J1815; J2185; J2543; J3243; J3370; J3480; J3490; J7030; J7040; J7050; P9016

== ENCOUNTER 2018-09-04 10:46 | Outpatient (CLI) | payer MEDICARE ==
[2018-09-04] MEDS ORDERED: XYLOCAINE TOPICAL 4% TP ONE (12:14)
[2018-09-04] MEDS ORDERED: SILVER NITRATE TP ONE (12:15)
== END 2018-09-04 10:47 | disposition home or self-care (01) ==
LOC: EDBD → WOUND 10:46
PROVIDERS: ATTEND Surgery
DX: L89.154 Pressure ulcer of sacral region, stage 4 (principal); L89.222 Pressure ulcer of left hip, stage 2; L89.622 Pressure ulcer of left heel, stage 2; L89.610 Pressure ulcer of right heel, unstageable; L89.891 Pressure ulcer of other site, stage 1; L97.213 Non-pressure chronic ulcer of right calf with necrosis of muscle; I67.89 Other cerebrovascular disease; F01.50 Vascular dementia, unspecified severity, without behavioral disturbance, psychotic disturbance, mood disturbance, and anxiety; L89.122 Pressure ulcer of left upper back, stage 2; L89.513 Pressure ulcer of right ankle, stage 3; I10 Essential (primary) hypertension; E03.9 Hypothyroidism, unspecified

== ENCOUNTER 2018-09-11 10:34 | Outpatient (CLI) | payer MEDICARE ==
[2018-09-11] MEDS ORDERED: XYLOCAINE TOPICAL 2% 30ML TP ONE (10:36)
[2018-09-11] MEDS ORDERED: XYLOCAINE TOPICAL 4% TP ONE (10:36)
[2018-09-11] MEDS ORDERED: SILVER NITRATE TP NR (12:00)
== END 2018-09-11 10:35 | disposition home or self-care (01) ==
LOC: EDBD → WOUND 10:34
PROVIDERS: ATTEND Surgery
DX: L89.154 Pressure ulcer of sacral region, stage 4 (principal); L89.222 Pressure ulcer of left hip, stage 2; L89.622 Pressure ulcer of left heel, stage 2; L89.610 Pressure ulcer of right heel, unstageable; L89.891 Pressure ulcer of other site, stage 1; L97.213 Non-pressure chronic ulcer of right calf with necrosis of muscle; I67.89 Other cerebrovascular disease; F01.50 Vascular dementia, unspecified severity, without behavioral disturbance, psychotic disturbance, mood disturbance, and anxiety; L89.122 Pressure ulcer of left upper back, stage 2; L89.513 Pressure ulcer of right ankle, stage 3; I10 Essential (primary) hypertension; E03.9 Hypothyroidism, unspecified

== ENCOUNTER 2018-09-18 11:02 | Outpatient (CLI) | payer MEDICARE ==
[2018-09-18] MEDS ORDERED: XYLOCAINE TOPICAL 4% TP ONE (11:36)
[2018-09-18] MEDS ORDERED: XYLOCAINE TOPICAL 2% 30ML TP ONE (11:36)
[2018-09-18] MEDS ORDERED: SILVER NITRATE TP ONE (11:54)
[2018-09-18] MEDS ORDERED: DAKIN'S FULL STRENGTH TP ONE (13:02)
== END 2018-09-18 11:03 | disposition home or self-care (01) ==
LOC: EDBD → WOUND 11:02
PROVIDERS: ATTEND Surgery
DX: L89.154 Pressure ulcer of sacral region, stage 4 (principal); L89.222 Pressure ulcer of left hip, stage 2; L89.622 Pressure ulcer of left heel, stage 2; L89.610 Pressure ulcer of right heel, unstageable; L89.891 Pressure ulcer of other site, stage 1; L89.122 Pressure ulcer of left upper back, stage 2; L89.513 Pressure ulcer of right ankle, stage 3; L97.213 Non-pressure chronic ulcer of right calf with necrosis of muscle; I67.89 Other cerebrovascular disease; F01.50 Vascular dementia, unspecified severity, without behavioral disturbance, psychotic disturbance, mood disturbance, and anxiety; I10 Essential (primary) hypertension; E03.9 Hypothyroidism, unspecified
CPT/HCPCS: 97606

== ENCOUNTER 2018-10-01 14:11 | Inpatient (IN) | payer MEDICARE ==
[2018-10-01 14:41] LABS: Basophils # (Auto) 0.1 K/mm3 (0.0-0.1); Basophils % (Auto) 0.8 % (0.0-1.8); Eosinophils # (Auto) 0.2 K/mm3 (0.0-0.4); Hematocrit 23.1 % (35.5-45.6); Hemoglobin 7.3 gm/dl (11.8-15.2); Lymphocytes # (Auto) 1.2 K/mm3 (1.2-5.4); Lymphocytes % (Auto) 6.7 % (13.4-35.0); Mean Corpuscular HGB Conc 31 % (32-34); Mean Corpuscular Volume 86 fl (84-94); Monocytes # (Auto) 1.2 K/mm3 (0.0-0.8); Monocytes % (Auto) 6.5 % (0.0-7.3); Platelet Count 522 K/mm3 (140-440); Red Blood Count 2.68 M/mm3 (3.65-5.03); Red Cell Distribution Width 19.3 % (13.2-15.2)
[2018-10-01] MEDS ORDERED: NACL 0.9% 1000 ML 1,000 ML ONE (14:52)
--- NOTE | 2018-10-01 14:52 | XRay Report ---
AP CHEST: HISTORY: Short of breath Limited exam with the patient's chin overlying the right upper lobe. The patient was reportedly severely contracted. Grossly, the lungs are clear. No large pleural effusion or pneumothorax is identified. Mild cardiomegaly and ectatic aorta are again noted and unchanged. IMPRESSION: Limited exam. Mild cardiomegaly. The lungs are grossly clear although there is poor visualization of the right upper lobe.
[2018-10-01 14:56] LABS: Calcium 8.8 mg/dL (8.4-10.2)
[2018-10-01] MEDS ORDERED: NACL 0.9% 1000 ML 1,000 ML IV ONE (14:56)
--- NOTE | 2018-10-01 15:02 | Emergency Department Report ---
ED General Adult HPI - General Chief complaint: Weakness Stated complaint: LOW BLOOD PRESSURE Time Seen by Provider: 10/01/18 14:48 Source: EMS Mode of arrival: Stretcher Limitations: Altered Mental Status, Physical Limitation - History of Present Illness Initial comments: Patient is 67 years old male, familiar to me since that treated him for the same symptoms last month. Patient is a care home patient, history of CVA, diabetes, congestive heart failure, dementia, decubitus ulcer. Patient is significant contracted. Patient brought to the emergency room via EMS from the care home for evaluation of sepsis. Patient blood pressure 67/86. Sepsis protocol initiated. Patient is not communicating secondary to his CVA and advanced dementia. Severity scale (0 -10): 0 - Related Data Home Medications Medication Instructions Recorded Confirmed Last Taken Multivit-Min/Iron Fum/Folic AC 1 each PO DAILY 03/24/18 07/30/18 Unknown [Pxmvs-Efwjuos-Ypyrcnzb Tablet] Acetaminophen 650 mg NGTUBE Q6H PRN 07/30/18 07/30/18 Unknown AtorvaSTATin [Lipitor] 40 mg NGTUBE QHS 07/30/18 07/30/18 Unknown Dutasteride 0.5 mg NGTUBE QAM 07/30/18 07/30/18 Unknown Ipratropium/Albuterol Sulfate 1 ampul IH BID 07/30/18 07/30/18 Unknown [DUONEB *Not for PRN Use*] Lisinopril [Zestril TAB] 40 mg PO QDAY 07/30/18 07/30/18 Unknown Tamsulosin [Flomax] 0.4 mg PO QDAY 07/30/18 07/30/18 Unknown Vit C/Ascorbate Calcium,Sodium 500 mg NGTUBE BID 07/30/18 07/30/18 Unknown [Vitamin C 500 mg/15 ml Liquid] Zinc Sulfate 220 mg NGTUBE QDAY 07/30/18 07/30/18 Unknown levETIRAcetam [Keppra INJ] 500 mg PO Q12H 07/30/18 07/30/18 Unknown Previous Rx's Medication Instructions Recorded Last Taken Type Carvedilol [Coreg] 3.125 mg PO BID #60 tablet 08/23/18 Unknown Rx Furosemide [Lasix] 20 mg PO QDAY #30 tablet 08/23/18 Unknown Rx Oxycodone HCl/Acetaminophen 1 each PO Q8HR PRN #14 tablet 08/23/18 Unknown Rx [Percocet 7.5/325 mg] Phosphorus #1 [K-Phos Neutral] 250 mg PO QID #30 tablet 08/23/18 Unknown Rx hydroCHLOROthiazide [HCTZ] 12.5 mg PO QDAY #30 tablet 08/23/18 Unknown Rx Allergies Allergy/AdvReac Type Severity Reaction Status Date / Time lisinopril Allergy Unknown Verified 10/01/18 15:17 tramadol Allergy Unknown Verified 07/29/18 18:39 ED Review of Systems ROS: Stated complaint: LOW BLOOD PRESSURE Other details as noted in HPI Comment: Unobtainable due to pts medical conditions ED Past Medical Hx - Past Medical History Previous Medical History?: Yes Hx Hypertension: Yes Hx CVA: Yes Hx Heart Attack/AMI: Yes Hx Congestive Heart Failure: Yes Hx Diabetes: Yes (States does not treat) Hx Deep Vein Thrombosis: No Hx Pulmonary Embolism: No Hx GERD: No Hx Liver Disease: No Hx Renal Disease: No Hx Sickle Cell Disease: No Hx Arthritis: Yes Hx Headaches / Migraines: No Hx Seizures: Yes Hx Kidney Stones: Yes Hx Psychiatric Treatment: No Hx Asthma: No Hx COPD: Yes Hx Tuberculosis: No Hx Dementia: Yes Hx HIV: No Additional medical history: Benign prostatic hypertrophy - Surgical History Past Surgical History?: Yes Hx Coronary Stent: No Hx Open Heart Surgery: No Hx Pacemaker: No Hx Internal Defibrillator: No Hx Cholecystectomy: No Hx Appendectomy: No Hx Breast Surgery: No Additional Surgical History: debridement of sacral wound, gastrostomy - Social History Smoking Status: Never Smoker Substance Use Type: None - Medications Home Medications: Home Medications Medication Instructions Recorded Confirmed Last Taken Type Multivit-Min/Iron Fum/Folic AC 1 each PO DAILY 03/24/18 07/30/18 Unknown History [Isilo-Fosmyit-Pdeiowsq Tablet] Acetaminophen 650 mg NGTUBE Q6H PRN 07/30/18 07/30/18 Unknown History AtorvaSTATin [Lipitor] 40 mg NGTUBE QHS 07/30/18 07/30/18 Unknown History Dutasteride 0.5 mg NGTUBE QAM 07/30/18 07/30/18 Unknown History Ipratropium/Albuterol Sulfate 1 ampul IH BID 07/30/18 07/30/18 Unknown History [DUONEB *Not for PRN Use*] Lisinopril [Zestril TAB] 40 mg PO QDAY 07/30/18 07/30/18 Unknown History Tamsulosin [Flomax] 0.4 mg PO QDAY 07/30/18 07/30/18 Unknown History Vit C/Ascorbate Calcium,Sodium 500 mg NGTUBE BID 07/30/18 07/30/18 Unknown History [Vitamin C 500 mg/15 ml Liquid] Zinc Sulfate 220 mg NGTUBE QDAY 07/30/18 07/30/18 Unknown History levETIRAcetam [Keppra INJ] 500 mg PO Q12H 07/30/18 07/30/18 Unknown History Carvedilol [Coreg] 3.125 mg PO BID #60 tablet 08/23/18 Unknown Rx Furosemide [Lasix] 20 mg PO QDAY #30 tablet 08/23/18 Unknown Rx Oxycodone HCl/Acetaminophen 1 each PO Q8HR PRN #14 tablet 08/23/18 Unknown Rx [Percocet 7.5/325 mg] Phosphorus #1 [K-Phos Neutral] 250 mg PO QID #30 tablet 08/23/18 Unknown Rx hydroCHLOROthiazide [HCTZ] 12.5 mg PO QDAY #30 tablet 08/23/18 Unknown Rx ED Physical Exam - General Limitations: Altered Mental Status, Physical Limitation General appearance: alert - Head Head exam: Present: atraumatic, normocephalic, normal inspection - ENT ENT exam: Present: mucous membranes dry - Neck Neck exam: Present: normal inspection. Absent: tenderness, meningismus - Respiratory Respiratory exam: Present: respiratory distress, rales - Cardiovascular Cardiovascular Exam: Present: regular rate, normal rhythm, normal heart sounds - GI/Abdominal GI/Abdominal exam: Present: soft, normal bowel sounds, other (G-tube in place.). Absent: distended, tenderness, guarding, rebound, rigid, organomegaly, mass, bruit, pulsatile mass, hernia - Extremities Exam Extremities exam: Present: normal inspection, full ROM, other (contracted) - Back Exam Back exam: Present: other (decubitus ulcer) - Neurological Exam Neurological exam: Present: altered - Skin Skin exam: Present: dry ED Course Vital Signs 10/01/18 10/01/18 10/01/18 14:16 14:25 14:31 Temperature 98.8 F Pulse Rate 96 H 94 H 96 H Respiratory 48 H 56 H 55 H Rate Blood Pressure 58/33 Blood Pressure 103/77 [Left] O2 Sat by Pulse 99 98 96 Oximetry 10/01/18 10/01/18 10/01/18 14:45 15:00 15:15 Temperature Pulse Rate 96 H 99 H 95 H Respiratory 41 H 52 H 57 H Rate Blood Pressure 60/30 97/64 87/54 Blood Pressure [Left] O2 Sat by Pulse 98 98 99 Oximetry 10/01/18 10/01/18 10/01/18 15:30 15:45 16:11 Temperature Pulse Rate 89 93 H 90 Respiratory 46 H 50 H 47 H Rate Blood Pressure 89/55 99/61 99/61 Blood Pressure [Left] O2 Sat by Pulse 100 100 Oximetry 10/01/18 10/01/18 10/01/18 16:15 16:30 16:45 Temperature Pulse Rate 86 83 81 Respiratory 37 H 39 H 31 H Rate Blood Pressure 84/53 81/54 79/46 Blood Pressure [Left] O2 Sat by Pulse 100 99 100 Oximetry 10/01/18 10/01/18 10/01/18 17:00 17:15 17:30 Temperature Pulse Rate 84 81 81 Respiratory 34 H 23 39 H Rate Blood Pressure 83/49 93/54 97/56 Blood Pressure [Left] O2 Sat by Pulse 98 100 97 Oximetry 10/01/18 10/01/18 17:45 18:00 Temperature Pulse Rate 83 83 Respiratory 18 31 H Rate Blood Pressure 96/56 97/57 Blood Pressure [Left] O2 Sat by Pulse 99 91 Oximetry ED Medical Decision Making - Lab Data Result diagrams: 10/01/18 14:29 10/01/18 15:15 - Radiology Data Radiology results: report reviewed Chest x-ray is unremarkable. - Medical Decision Making Patient is 67 years old male, familiar to me since that treated him for the same symptoms last month. Patient is a care home patient, history of CVA, diabetes, congestive heart failure, dementia, decubitus ulcer. Patient is significant contracted. Patient brought to the emergency room via EMS from the care home for evaluation of sepsis. Patient blood pressure 67/86. Sepsis protocol initiated. Patient is not communicating secondary to his CVA and adva nced dementia. Patient is obviously in septic shock most likely due to urosepsis. Patient blood pressure responded to fluids. Patient received Zosyn. I discussed the patient with Dr. Leija, he agreed to admit the patient to medical service. Critical Care Time: Yes Critical care time in (mins) excluding proc time.: 30 Critical care attestation.: If time is entered above; I have spent that time in minutes in the direct care of this critically ill patient, excluding procedure time. ED Disposition Clinical Impression: Sepsis, UTI (lower urinary tract infection), Septic shock, Acute hypernatremia, Acute renal failure Disposition: 09 OP ADMIT IP TO THIS HOSP Is pt being admited?: Yes Condition: Stable
[2018-10-01 15:18] LABS: Chol/HDL Ratio 1.71 %
--- NOTE | 2018-10-01 15:26 | History and Physical Report ---
History of Present Illness Chief complaint: Unresponsive History of present illness: 67 YO Male Intermediate Facility Resident as [facility] with HTN, CVA, Obstructive Uropathy, Contracture, Decubitus Ulcers, ND, DM, OA, Seizure Disorder, COPD, Dementia, Debility, BPH presents to ED for evaluation. Pt is confused and unable to provide history. Pt history taken from ED Staff, EMS, and SNF Staff. As per staff, the patient was found to have decreased responsiveness compared to baseline. Blood pressure was taken and patient was found to have a systolic blood pressure in the 60's. EMS notified and patient transported to [facility] for further care and evaluation. Pt seen and evaluated in ED and found to have Sepsis secondary to UTI with concomitant RUL Pneumonia with a QSofa score of 8( GCS:3, MAP less than 70, Creatnine:2.1), Encephalopathy, and symptomatic anemia. Pt admitted to [facility] and initiated on Sepsis protocol. Prior admission on 07/29/18 reviewed. All listed mediction reconciled at time of admission. No further history obtainable. Medications and Allergies Allergies Allergy/AdvReac Type Severity Reaction Status Date / Time lisinopril Allergy Unknown Verified 10/01/18 15:17 tramadol Allergy Unknown Verified 07/29/18 18:39 Home Medications Medication Instructions Recorded Confirmed Last Taken Type Multivit-Min/Iron Fum/Folic AC 1 each PO DAILY 03/24/18 07/30/18 Unknown History [Tfddj-Zjmsihc-Chlgujna Tablet] Acetaminophen 650 mg NGTUBE Q6H PRN 07/30/18 07/30/18 Unknown History AtorvaSTATin [Lipitor] 40 mg NGTUBE QHS 07/30/18 07/30/18 Unknown History Dutasteride 0.5 mg NGTUBE QAM 07/30/18 07/30/18 Unknown History Ipratropium/Albuterol Sulfate 1 ampul IH BID 07/30/18 07/30/18 Unknown History [DUONEB *Not for PRN Use*] Lisinopril [Zestril TAB] 40 mg PO QDAY 07/30/18 07/30/18 Unknown History Tamsulosin [Flomax] 0.4 mg PO QDAY 07/30/18 07/30/18 Unknown History Vit C/Ascorbate Calcium,Sodium 500 mg NGTUBE BID 07/30/18 07/30/18 Unknown History [Vitamin C 500 mg/15 ml Liquid] Zinc Sulfate 220 mg NGTUBE QDAY 07/30/18 07/30/18 Unknown History levETIRAcetam [Keppra INJ] 500 mg PO Q12H 07/30/18 07/30/18 Unknown History Carvedilol [Coreg] 3.125 mg PO BID #60 tablet 08/23/18 Unknown Rx Furosemide [Lasix] 20 mg PO QDAY #30 tablet 08/23/18 Unknown Rx Oxycodone HCl/Acetaminophen 1 each PO Q8HR PRN #14 tablet 08/23/18 Unknown Rx [Percocet 7.5/325 mg] Phosphorus #1 [K-Phos Neutral] 250 mg PO QID #30 tablet 08/23/18 Unknown Rx hydroCHLOROthiazide [HCTZ] 12.5 mg PO QDAY #30 tablet 08/23/18 Unknown Rx Active Meds: Active Medications Sodium Chloride (Nacl 0.9% 1000 Ml) 1,000 mls @ 999 mls/hr IV BOLUS ONE Stop: 10/01/18 15:56 Last Admin: 10/01/18 15:12 Dose: 999 mls/hr Documented by: Piperacillin Sod/Tazobactam Sod (Zosyn/Ns 3.375gm/50ml) 3.375 gm in 50 mls @ 100 mls/hr IV ONCE ONE Stop: 10/01/18 16:29 Review of Systems ROS unobtainable: due to mental status Exam - Constitutional Vitals: Temp Pulse Resp BP Pulse Ox 98.8 F 95 H 57 H 87/54 99 10/01/18 14:25 10/01/18 15:15 10/01/18 15:15 10/01/18 15:15 10/01/18 15:15 General appearance: Present: mild distress - EENT Eyes: Present: miosis - Neck Neck: Present: supple, normal ROM - Respiratory Respiratory effort: labored Respiratory: bilateral: diminished - Cardiovascular Rhythm: other (tachycardia, hypotensive) Heart Sounds: Present: S1 & S2. Absent: rub, click Peripheral Pulses: abnormal (capillary refill greather than 3.5 seconds) - Abdominal General gastrointestinal: Present: soft, non-tender, non-distended, normal bowel sounds Male genitourinary: Present: normal - Integumentary Integumentary: Present: clear, dry, decreased turgor - Musculoskeletal Musculoskeletal: generalized weakness - Psychiatric Psychiatric: no appropriate mood/affect, no intact judgment & insight, no memory intact - Neurologic Neurologic: CNII-XII intact, no moves all extremities, no gait normal Results - Labs CBC & Chem 7: 10/01/18 14:29 10/01/18 15:15 Labs: Abnormal lab results 10/01/18 10/01/18 Range/Units 14:29 14:29 WBC 18.5 H (4.5-11.0) K/mm3 RBC 2.68 L (3.65-5.03) M/mm3 Hgb 7.3 L (11.8-15.2) gm/dl Hct 23.1 L (35.5-45.6) % MCH 27 L (28-32) pg MCHC 31 L (32-34) % RDW 19.3 H (13.2-15.2) % Plt Count 522 H (140-440) K/mm3 Lymph % (Auto) 6.7 L (13.4-35.0) % [place] # 1.2 H (0.0-0.8) K/mm3 Seg Neutrophils % 85.0 H (40.0-70.0) % Seg Neutrophils # 15.7 H (1.8-7.7) K/mm3 Sodium 148 H (137-145) mmol/L Potassium 3.3 L (3.6-5.0) mmol/L BUN 98 H (9-20) mg/dL Creatinine 2.0 H (0.8-1.5) mg/dL Glucose 142 H (75-100) mg/dL Troponin T 0.361 H* (0.00-0.029) ng/mL Cholesterol 36 L (50-199) mg/dL LDL Cholesterol Direct 6 L (50-130) mg/dL HDL Cholesterol 21 L (40-59) mg/dL Assessment and Plan - Patient Problems (1) Sepsis Current Visit: Yes Status: Acute Qualifiers: Sepsis type: sepsis due to unspecified organism Qualified Code(s): A41.9 - Sepsis, unspecified organism Plan to address problem: Sepsis Protocol: IV antibiotic therapy, IVF resuscitation therapy, Blood cultures, Urinalysis, Chest X ray, monitor uop q shift, IV pressors as clinically indicated to maintain MAP above 60, serial lactic acid. Pt admitted to IMCU. Pt status improved with IVF resuscitation therapy, ABG, QSofa Score: 8. Pulmonary consulted in ED. The high probability of a clinically significant, sudden or life threatening deterioration of the [renal, cardiac, pulmonary,] system(s) required my full and direct attention, intervention and personal management. The aggregate critical care time was [65] minutes. This time is in addition to time spent performing reported procedures but includes the following: [x] Data Review and interpretation [x] Patient assessment and monitoring of vital signs [x] Documentation [x] Medication orders and management (2) ARF (acute renal failure) with tubular necrosis Current Visit: Yes Status: Acute Plan to address problem: IVF resuscitation therapy, monitor uop q shift, urinalysis, repeat bmp in am, urine electrolytes, nephrology consulted in ED. (3) Pneumonia Current Visit: Yes Status: Acute Qualifiers: Laterality: right Lung location: upper lobe of lung Plan to address problem: Pneumonia Protocol: IV antibiotic therapy, chest x ray, supplemental oxygen, pulse oximetry, CBC, CMP. (4) Elevated troponin Current Visit: Yes Status: Acute Plan to address problem: Serial cardiac enzymes, Cardiology consulted in ED, No EKG changes, supportive care, suspected secondary to heart strain and renal failure. (5) Acute renal failure Current Visit: Yes Status: Acute Qualifiers: Acute renal failure type: with acute tubular necrosis Qualified Code(s): N17.0 - Acute kidney failure with tubular necrosis Plan to address problem: IVF resuscitation therapy, monitor uop q shift, urine electrolytes, supportive care (6) UTI (lower urinary tract infection) Current Visit: Yes Status: Acute Plan to address problem: IV antibiotic therapy, supportive care, urinalysis, CBC, CMP, (7) Respiratory failure Current Visit: Yes Status: Acute Qualifiers: Chronicity: acute Respiratory failure complication: hypoxia Qualified Code(s): J96.01 - Acute respiratory failure with hypoxia Plan to address problem: Supplemental oxygen, nebulizer therapy, ABG, NIPPV as clinically indicated, pulse oximetry, chest x ray (8) DVT prophylaxis Current Visit: Yes Status: Acute Plan to address problem: SCD to BLE while in bed, prophylactic heparin
[2018-10-01 15:34] LABS: Bacteria,Urine 4+ /HPF (Negative); Bilirubin,Urine NEG (Negative); Blood,Urine NEG (Negative); Color,Urine Amber (Yellow); Mucus,Urine 3+ /HPF; Urobilinogen,Urine < 2.0 mg/dL (<2.0)
[2018-10-01 15:35] LABS: WBC,Urine > 182.0 /HPF (0.0-6.0)
[2018-10-01] MEDS: ZOSYN/NS 3.375GM/50ML 3.375 GM/50 ML BAG IV ONE ×2 (15:39→16:53)
[2018-10-01] MEDS ORDERED: LEVETIRACETAM 500 MG PO SCH (15:45)
[2018-10-01 16:08] LABS: Albumin 2.1 g/dL (3.9-5); Calcium 7.8 mg/dL (8.4-10.2)
[2018-10-01] MEDS ORDERED: NACL 0.9% 1000 ML IV ONE (16:30)
[2018-10-01] MEDS: FLAGYL 500 MG/100 ML 500 MG/100 ML BAG IV SCH (16:32)
[2018-10-01] MEDS ORDERED: PROVENTIL IH PRN (17:40)
[2018-10-01] MEDS ORDERED: SODIUM CHLORIDE FLUSH SYRINGE 10 ML IV PRN (17:40)
[2018-10-01] MEDS ORDERED: ZITHROMAX 500 MG in NACL 0.9% 250ML 250 ML IV SCH (18:00)
[2018-10-01] MEDS ORDERED: ROCEPHIN/NS 2 GM/100 ML 2 GM/100 ML BAG IV SCH (18:30)
[2018-10-01] MEDS ORDERED: NACL 0.45% 1000 ML 1,000 ML IV ONE (19:49)
[2018-10-01] MEDS ORDERED: LEVAQUIN 750MG/150ML 750 MG/150 ML BAG IV ONE (19:49)
[2018-10-01] MEDS: LEVAQUIN 750MG/150ML 750 MG/150 ML BAG IV SCH ×2 (19:51→19:59)
[2018-10-01] MEDS ORDERED: NACL 0.45% 3,000 ML IV SCH (20:00)
[2018-10-01 20:07] LABS: Free T4 (Free Thyroxine) 1.05 ng/dL (0.76-1.46)
[2018-10-01] MEDS: K-PHOS NEUTRAL PO SCH (20:17)
[2018-10-01] MEDS ORDERED: ASCORBATE CALCIUM SODIUM NGTUBE SCH (22:00)
[2018-10-01] MEDS ORDERED: VIT C NGTUBE SCH (22:00)
[2018-10-01] MEDS ORDERED: NACL 0.9% 500 ML IV ONE (23:12)
[2018-10-01] MEDS ORDERED: HEPARIN ONE (23:42)
[2018-10-01] MEDS ORDERED: LEVOPHED DRIP 4 MG/NS 250 ML 4 MG/250 ML BAG IV ONE (23:42)
[2018-10-01] MEDS ORDERED: KEPPRA 500 MG in D5W 100 ML IV ONE (23:45)
[2018-10-01] MEDS: HEPARIN SUB-Q SCH (23:45)
[2018-10-01] MEDS: KEPPRA PO SCH (23:45)
[2018-10-01] MEDS: SODIUM CHLORIDE FLUSH SYRINGE 10 ML IV SCH (23:45)
[2018-10-02] MEDS ORDERED: LEVOPHED IV SCH
--- NOTE | 2018-10-02 00:21 | Event Note ---
Date: 10/02/[address] Connor, hospitalist, to place central line due to hypotension. Right femoral triple lumen central line was placed under sterile conditions. Each port aspirated and flushed. Line was sutured in place. Sterile dressing applied. Patient tolerated well.
[2018-10-02] MEDS ORDERED: LEVOPHED DRIP 4 MG/NS 250 ML 4 MG/250 ML BAG IV SCH (00:30)
[2018-10-02] MEDS: FLAGYL 500 MG/100 ML 500 MG/100 ML BAG IV SCH ×2 (00:47→16:26)
[2018-10-02] MEDS: NACL 0.45% 1000 ML 1,000 ML IV SCH ×2 (04:58→10:14)
[2018-10-02 05:06] LABS: Hematocrit 20.4 % (35.5-45.6); Hemoglobin 6.4 gm/dl (11.8-15.2); Mean Corpuscular HGB Conc 31 % (32-34); Mean Corpuscular Volume 85 fl (84-94); Platelet Count 462 K/mm3 (140-440); Red Cell Distribution Width 19.1 % (13.2-15.2)
[2018-10-02 05:09] LABS: Creatinine,Urine 74.7 mg/dL (0.1-20.0)
[2018-10-02 05:30] LABS: Albumin 1.7 g/dL (3.9-5); Calcium 8.3 mg/dL (8.4-10.2)
[2018-10-02 06:14] LABS: Anisocytosis 1+; Band Neutrophils # (Manual) 2.6 K/mm3; Basophils % (Manual) 0 % (0.0-1.8); Total Cells Counted 100
[2018-10-02 06:15] LABS: Macrocytosis 2+; Platelet Estimate Consistent w Auto
--- NOTE | 2018-10-02 08:35 | Consultation ---
History of Present Illness - Reason for Consult Consult date: 10/02/18 acute renal failure - History of Present Illness The patient is a 67 YO male who is known to our service from previous admission with medical history significant for HTN, CVA, Obstructive Uropathy, multiple contracture, multiple decubitus ulcers, CAD, DM type 2, OA, Seizure Disorder, COPD, Dementia, BPH and NH resident who presented to [facility] ED via EMS for evaluation of AMS. Pt was not able to provide any history and there was no family member at the bedside. The patient was found to have decreased responsiveness compared to baseline. His systolic BP was in the 60's. In the ER his initial BP was 58/33. Pt was admitted with UTI, Septic shock, Encephalopathy and symptomatic anemia. Of note pt was treated for sepsis and multiple decubitus ulcers at this facility between 07/29/2018 and 08/23/2018. Creatinine was 2 on admission. Nephrology was consulted for further evaluation. Past History Past Medical History: anemia, diabetes, hypertension, hyperlipidemia, seizures, stroke, other (Decubitus ulcers, bedbound status) Medications and Allergies Allergies Allergy/AdvReac Type Severity Reaction Status Date / Time lisinopril Allergy Unknown Verified 10/01/18 15:17 tramadol Allergy Unknown Verified 07/29/18 18:39 Home Medications Medication Instructions Recorded Confirmed Last Taken Type Multivit-Min/Iron Fum/Folic AC 1 each PO DAILY 03/24/18 07/30/18 Unknown History [Wnubk-Bajfefb-Xlkeuyty Tablet] Acetaminophen 650 mg NGTUBE Q6H PRN 07/30/18 07/30/18 Unknown History AtorvaSTATin [Lipitor] 40 mg NGTUBE QHS 07/30/18 07/30/18 Unknown History Dutasteride 0.5 mg NGTUBE QAM 07/30/18 07/30/18 Unknown History Ipratropium/Albuterol Sulfate 1 ampul IH BID 07/30/18 07/30/18 Unknown History [DUONEB *Not for PRN Use*] Lisinopril [Zestril TAB] 40 mg PO QDAY 07/30/18 07/30/18 Unknown History Tamsulosin [Flomax] 0.4 mg PO QDAY 07/30/18 07/30/18 Unknown History Vit C/Ascorbate Calcium,Sodium 500 mg NGTUBE BID 07/30/18 07/30/18 Unknown History [Vitamin C 500 mg/15 ml Liquid] Zinc Sulfate 220 mg NGTUBE QDAY 07/30/18 07/30/18 Unknown History levETIRAcetam [Keppra INJ] 500 mg PO Q12H 07/30/18 07/30/18 Unknown History Carvedilol [Coreg] 3.125 mg PO BID #60 tablet 08/23/18 Unknown Rx Furosemide [Lasix] 20 mg PO QDAY #30 tablet 08/23/18 Unknown Rx Oxycodone HCl/Acetaminophen 1 each PO Q8HR PRN #14 tablet 08/23/18 Unknown Rx [Percocet 7.5/325 mg] Phosphorus #1 [K-Phos Neutral] 250 mg PO QID #30 tablet 08/23/18 Unknown Rx hydroCHLOROthiazide [HCTZ] 12.5 mg PO QDAY #30 tablet 08/23/18 Unknown Rx Active Meds: Active Medications Acetaminophen (Tylenol) 650 mg FEEDTUBE Q6H PRN PRN Reason: Pain, Moderate (4-6) Albuterol (Proventil) 2.5 mg IH Q3HRT PRN PRN Reason: Shortness Of Breath Ascorbic Acid (Vitamin C) 500 mg FEEDTUBE BID NORA Last Admin: 10/02/18 00:00 Dose: 500 mg Documented by: Atorvastatin Calcium (Lipitor) 40 mg FEEDTUBE QHS NORA Last Admin: 10/01/18 23:45 Dose: 40 mg Documented by: Heparin Sodium (Porcine) (Heparin) 5,000 unit SUB-Q Q12HR NORA Last Admin: 10/01/18 23:45 Dose: 5,000 unit Documented by: Ceftriaxone Sodium (Rocephin/Ns 2 Gm/100 Ml) 2 gm in 100 mls @ 200 mls/hr IV Q24H NORA; Protocol Last Admin: 10/01/18 18:42 Dose: 200 mls/hr Documented by: Metronidazole (Flagyl 500 Mg/100 Ml) 500 mg in 100 mls @ 100 mls/hr IV Q8H NORA; Protocol Last Admin: 10/02/18 00:47 Dose: 100 mls/hr Documented by: Levofloxacin/Dextrose (Levaquin 750mg/150ml) 750 mg in 150 mls @ 100 mls/hr IV Q48H NORA; Protocol Last Admin: 10/01/18 19:59 Dose: 100 mls/hr Documented by: Norepinephrine (Levophed Drip 4 Mg/Ns 250 Ml) 4 mg in 250 mls @ 7.5 mls/hr IV TITR [facility]; Protocol Last Titration: 10/02/18 06:27 Dose: 16 mcg/min, 60 mls/hr Documented by: Sodium Chloride (Nacl 0.45% 1000 Ml) 1,000 mls @ 125 mls/hr IV DIRECT [facility] Last Admin: 10/02/18 04:58 Dose: 125 mls/hr Documented by: Levetiracetam (Keppra) 500 mg PO BID [facility] Last Admin: 10/01/18 23:45 Dose: Not Given Documented by: Multivitamins (Theragran Tab) 1 each PO DAILY [facility] Sodium Chloride (Sodium Chloride Flush Syringe 10 Ml) 10 ml IV BID [facility] Last Admin: 10/01/18 23:45 Dose: 10 ml Documented by: Sodium Chloride (Sodium Chloride Flush Syringe 10 Ml) 10 ml IV PRN PRN PRN Reason: LINE FLUSH Sodium Phosphate (K-Phos Neutral) 250 mg PO QID [facility] Last Admin: 10/02/18 00:00 Dose: 250 mg Documented by: Zinc Sulfate (Zinc Sulfate) 220 mg PO QDAY [facility] Review of Systems ROS unobtainable: due to mental status Exam - Vital Signs Vital signs: Vital Signs Pulse Resp Pulse Ox 96 H 48 H 99 10/01/18 14:16 10/01/18 14:16 10/01/18 14:16 - General Appearance General appearance: well-developed, appears stated age, cachectic, other (not in distress) EENT: ATNC Neck: Present: trachea midline Respiratory: Clear to Ascultation Heart: regular, S1S2, no murmurs Gastrointestinal: Present: normoactive bowel sounds, other (PEG tube noted). Absent: tenderness Integumentary: ulcer, decubiti Neurologic: other (opens eyes, non-verbal, not following any command) Musculoskeletal: Present: other (multiple contractures noted) Results - Lab Results 10/02/18 04:45 10/02/18 04:45 Most recent lab results Calcium 8.3 mg/dL (8.4-10.2) L 10/02/18 04:45 Magnesium 3.30 mg/dL (1.7-2.3) H 10/01/18 18:23 74.7 mg/dL (0.1-20.0) H 10/02/18 04:45 21 mmol/L 10/02/18 04:45 Assessment and Plan 1. Acute kidney injury: Vasomotor / hemodynamic MÓNICA in the setting of hypotension, sepsis and volume depletion. Renal US. Continue IV fluids. Monitor renal function. Renal prognosis is guarded. Avoid nephrotoxic agents. Meds dosage based on GFR. 2. FEN: Hypernatremia, 1/2 NS. Replete K. Monitor lytes. 3. Sepsis with shock: On Levophed. 4. Anemia: PRBC. 5. Multiple decubitus ulcers. 6. Encephalopathy.
[2018-10-02] MEDS ORDERED: NACL 0.9% 500 ML 500 ML IV ONE (08:37)
--- NOTE | 2018-10-02 09:52 | Consultation ---
History of Present Illness Consult date: 10/02/18 Requesting physician: ALLYSON SHIN Reason for consult: other (Severe sepsis with septic shock) History of present illness: 67 y/o male , skilled nursing resident with history of HTN, CVA, Obstructive uropathy, Contracture, Multiple Decubitus Ulcers, TN, DM, OA, Seizure Disorder, COPD, Dementia, Debility, BPH, with recurrent admissions for decubitus ulcers infections, admitted this time, on due to decreased responsiveness compared to baseline and hypotension SBP in 60's. Most recent admission on 07/29/2018 he was found to have septic shock due to polymicrobial bacteremia ESBL E coli, MDR Proteus, Strep and E faecalis probably from multiple infected decubitus ulcers and less likely UTI. 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 Repeat blood cultures 07/31/2018 showed same MDR E coli 1 of 4 bottles then 08/06/2018 blood cultures showed no growth. His prognosis has been poor and discussed previously with family hospice indication but they declined. His wounds are not curable considering his contractures, bed bound status and poor nutritional status. There was also suspicion of septic arthritis of left hip from decubitus ulcer. Patient did not respond to carbapenem and was placed on vabomere for 14 days. In the ED, temp 98.8, HR 96, R 48, O2 sat 99, BP 58/33. WBC 18. Hg 7.3. Plat 522. Lactate 2.6. AST 47. UA 182 wbc and large LE. Blood culture 10/01/2018 GPC in clusters 2 of 4. A right femoral CVC was placed for volume resuscitation and vasopressor support. I have been consulted for critical care management, severe sepsis with septic shock. Patient was seen and examined. He only grimaces and moans /groans to touch, otherwise non verbal. Vitals, labs, medications, chart and imaging reviewed. ROS: unable to obtain Medications and Allergies Allergies Allergy/AdvReac Type Severity Reaction Status Date / Time lisinopril Allergy Unknown Verified 10/01/18 15:17 tramadol Allergy Unknown Verified 07/29/18 18:39 Home Medications Medication Instructions Recorded Confirmed Last Taken Type Multivit-Min/Iron Fum/Folic AC 1 each PO DAILY 03/24/18 07/30/18 Unknown History [Itrov-Ysxqosk-Nlicgvfv Tablet] Acetaminophen 650 mg NGTUBE Q6H PRN 07/30/18 07/30/18 Unknown History AtorvaSTATin [Lipitor] 40 mg NGTUBE QHS 07/30/18 07/30/18 Unknown History Dutasteride 0.5 mg NGTUBE QAM 07/30/18 07/30/18 Unknown History Ipratropium/Albuterol Sulfate 1 ampul IH BID 07/30/18 07/30/18 Unknown History [DUONEB *Not for PRN Use*] Lisinopril [Zestril TAB] 40 mg PO QDAY 07/30/18 07/30/18 Unknown History Tamsulosin [Flomax] 0.4 mg PO QDAY 07/30/18 07/30/18 Unknown History Vit C/Ascorbate Calcium,Sodium 500 mg NGTUBE BID 07/30/18 07/30/18 Unknown History [Vitamin C 500 mg/15 ml Liquid] Zinc Sulfate 220 mg NGTUBE QDAY 07/30/18 07/30/18 Unknown History levETIRAcetam [Keppra INJ] 500 mg PO Q12H 07/30/18 07/30/18 Unknown History Carvedilol [Coreg] 3.125 mg PO BID #60 tablet 08/23/18 Unknown Rx Furosemide [Lasix] 20 mg PO QDAY #30 tablet 08/23/18 Unknown Rx Oxycodone HCl/Acetaminophen 1 each PO Q8HR PRN #14 tablet 08/23/18 Unknown Rx [Percocet 7.5/325 mg] Phosphorus #1 [K-Phos Neutral] 250 mg PO QID #30 tablet 08/23/18 Unknown Rx hydroCHLOROthiazide [HCTZ] 12.5 mg PO QDAY #30 tablet 08/23/18 Unknown Rx Active Meds: Active Medications Acetaminophen (Tylenol) 650 mg FEEDTUBE Q6H PRN PRN Reason: Pain, Moderate (4-6) Albuterol (Proventil) 2.5 mg IH Q3HRT PRN PRN Reason: Shortness Of Breath Ascorbic Acid (Vitamin C) 500 mg FEEDTUBE BID [facility] Last Admin: 10/02/18 00:00 Dose: 500 mg Documented by: Atorvastatin Calcium (Lipitor) 40 mg FEEDTUBE QHS [facility] Last Admin: 10/01/18 23:45 Dose: 40 mg Documented by: Heparin Sodium (Porcine) (Heparin) 5,000 unit SUB-Q Q12HR [facility] Last Admin: 10/01/18 23:45 Dose: 5,000 unit Documented by: Norepinephrine (Levophed Drip 4 Mg/Ns 250 Ml) 4 mg in 250 mls @ 7.5 mls/hr IV TITR [facility]; Protocol Last Titration: 10/02/18 06:27 Dose: 16 mcg/min, 60 mls/hr Documented by: Sodium Chloride (Nacl 0.45% 1000 Ml) 1,000 mls @ 125 mls/hr IV DIRECT [facility] Last Admin: 10/02/18 04:58 Dose: 125 mls/hr Documented by: Meropenem (Merrem/Ns 500 Mg/50 Ml) 500 mg in 50 mls @ 50 mls/hr IV Q12HR [facility] Sodium Chloride (Nacl 0.45%) 500 mls @ 999 mls/hr IV DIRECT [facility] Stop: 10/02/18 10:31 Vasopressin 20 unit/ Sodium (Chloride) 101 mls @ 9.09 mls/hr IV TITR [facility]; Protocol Levetiracetam (Keppra) 500 mg PO BID [facility] Last Admin: 10/01/18 23:45 Dose: Not Given Documented by: Multivitamins (Theragran Tab) 1 each PO DAILY [facility] Potassium Chloride (Potassium Chloride) 40 meq FEEDTUBE ONCE ONE Stop: 10/02/18 10:01 Sodium Chloride (Sodium Chloride Flush Syringe 10 Ml) 10 ml IV BID [facility] Last Admin: 10/01/18 23:45 Dose: 10 ml Documented by: Sodium Chloride (Sodium Chloride Flush Syringe 10 Ml) 10 ml IV PRN PRN PRN Reason: LINE FLUSH Sodium Phosphate (K-Phos Neutral) 250 mg PO QID [facility] Last Admin: 10/02/18 00:00 Dose: 250 mg Documented by: Zinc Sulfate (Zinc Sulfate) 220 mg PO QDAY [facility] Review of Systems ROS unobtainable: due to mental status Physical Examination Vital signs: Vital Signs Pulse Resp Pulse Ox 96 H 48 H 99 10/01/18 14:16 10/01/18 14:16 10/01/18 14:16 General appearance: Alert in mild respiratory distress, supplemental oxygen at 2L/min, moans and groans Contractures, frail, chronically ill looking Eyes: anicteric sclerae, moist conjunctivae; PERRLA HENT: Atraumatic; oropharynx limited Neck: Trachea midline; supple, no thyromegaly or lymphadenopathy Lungs: Decreased AE bilaterally, Coarse BS CV: Tachycardia, regular, S1,S2 Abdomen: Soft, non-tender;PEG Extremities: bilateral contracted legs, multiple wounds Femoral CVC Skin: multiple skin tears Psych: not agitated Neuro: non verbal Results - Laboratory Findings CBC and BMP: 10/03/18 06:45 10/03/18 06:45 ABG POC ABG pH 7.480 (7.35-7.45) H 10/01/18 18:12 POC ABG pO2 64 (80-105) L 10/01/18 18:12 POC ABG HCO3 21.0 (22-26 mml/L) 10/01/18 18:12 POC ABG Total CO2 22 (23-27mmol/L) 10/01/18 18:12 POC ABG O2 Sat 94 10/01/18 18:12 Abnormal lab findings: Abnormal Labs 10/01/18 10/01/18 10/01/18 14:29 14:29 15:13 WBC 18.5 H RBC 2.68 L Hgb 7.3 L Hct 23.1 L MCH 27 L MCHC 31 L RDW 19.3 H Plt Count 522 H Lymph % (Auto) 6.7 L M[place]och # 1.2 H Seg Neutrophils % 85.0 H Seg Neuts % (Manual) Lymphocytes % (Manual) Seg Neutrophils # 15.7 H Seg Neutrophils # Man Lymphocytes # (Manual) POC ABG pH POC ABG pO2 Sodium 148 H Potassium 3.3 L Chloride Carbon Dioxide BUN 98 H Creatinine 2.0 H Glucose 142 H Lactic Acid Calcium Magnesium AST Alkaline Phosphatase Troponin T 0.361 H* Albumin Cholesterol 36 L LDL Cholesterol Direct 6 L HDL Cholesterol 21 L Urine WBC (Auto) > 182.0 H Urine Creatinine 10/01/18 10/01/18 10/01/18 15:15 15:15 17:03 WBC RBC Hgb Hct MCH MCHC RDW Plt Count Lymph % (Auto) [place] # Seg Neutrophils % Seg Neuts % (Manual) Lymphocytes % (Manual) Seg Neutrophils # Seg Neutrophils # Man Lymphocytes # (Manual) POC ABG pH POC ABG pO2 Sodium 150 H Potassium Chloride Carbon Dioxide BUN 94 H Creatinine 2.1 H Glucose 132 H Lactic Acid 2.60 H* 2.20 H* Calcium 7.8 L Magnesium AST 47 H Alkaline Phosphatase 179 H Troponin T Albumin 2.1 L Cholesterol LDL Cholesterol Direct HDL Cholesterol Urine WBC (Auto) Urine Creatinine 10/01/18 10/01/18 10/01/18 18:12 18:23 18:23 WBC RBC Hgb Hct MCH MCHC RDW Plt Count Lymph % (Auto) [place] # Seg Neutrophils % Seg Neuts % (Manual) Lymphocytes % (Manual) Seg Neutrophils # Seg Neutrophils # Man Lymphocytes # (Manual) POC ABG pH 7.480 H POC ABG pO2 64 L Sodium Potassium Chloride Carbon Dioxide BUN Creatinine Glucose Lactic Acid Calcium Magnesium 3.30 H AST Alkaline Phosphatase Troponin T 0.378 H* Albumin Cholesterol LDL Cholesterol Direct HDL Cholesterol Urine WBC (Auto) Urine Creatinine 10/01/18 10/01/18 10/01/18 18:48 21:20 23:48 WBC RBC Hgb Hct MCH MCHC RDW Plt Count Lymph % (Auto) [place] # Seg Neutrophils % Seg Neuts % (Manual) Lymphocytes % (Manual) Seg Neutrophils # Seg Neutrophils # Man Lymphocytes # (Manual) POC ABG pH POC ABG pO2 Sodium Potassium Chloride Carbon Dioxide BUN Creatinine Glucose Lactic Acid 2.30 H* 2.70 H* Calcium Magnesium AST Alkaline Phosphatase Troponin T 0.336 H* Albumin Cholesterol LDL Cholesterol Direct HDL Cholesterol Urine WBC (Auto) Urine Creatinine 10/01/18 10/02/18 10/02/18 23:48 04:45 04:45 WBC 18.3 H RBC 2.40 L Hgb 6.4 L Hct 20.4 L MCH 27 L MCHC 31 L RDW 19.1 H Plt Count 462 H Lymph % (Auto) [place] # Seg Neutrophils % Seg Neuts % (Manual) 78.0 H Lymphocytes % (Manual) 5.0 L Seg Neutrophils # Seg Neutrophils # Man 14.3 H Lymphocytes # (Manual) 0.9 L POC ABG pH POC ABG pO2 Sodium Potassium Chloride Carbon Dioxide BUN Creatinine Glucose Lactic Acid 2.50 H* Calcium Magnesium AST Alkaline Phosphatase Troponin T Albumin Cholesterol LDL Cholesterol Direct HDL Cholesterol Urine WBC (Auto) Urine Creatinine 74.7 H 10/02/18 10/02/18 04:45 04:45 WBC RBC Hgb Hct MCH MCHC RDW Plt Count Lymph % (Auto) [place] # Seg Neutrophils % Seg Neuts % (Manual) Lymphocytes % (Manual) Seg Neutrophils # Seg Neutrophils # Man Lymphocytes # (Manual) POC ABG pH POC ABG pO2 Sodium 148 H Potassium 3.1 L Chloride 108.6 H Carbon Dioxide 21 L BUN 89 H Creatinine 1.8 H Glucose Lactic Acid 2.10 H* Calcium 8.3 L Magnesium AST Alkaline Phosphatase 161 H Troponin T Albumin 1.7 L Cholesterol LDL Cholesterol Direct HDL Cholesterol Urine WBC (Auto) Urine Creatinine - Diagnostic Findings Chest x-ray: image reviewed (Poor study due to body habitus fixed flexion of neck) Assessment and Plan - Severe Sepsis with septic shock -GPC bacteremia -Acute encephalopathy -Multiple decubitus ulcers -Acute metabolic encephaloapthy -Hypernatremia -Recurrent CAUTI -Lactic acidosis -Acute renal failure- prerenal/vasomotor nephropathy -ABG to better evaluate acid-base -Volume resuscitation -Patient has both dehydration and intravascular volume depletion, will use [id number] as fluid of choice for resuscitation -Monitor renal indices closely -Avoid nephrotoxic agents, adjust all medications for CrCL -Strict intake and output monitoring -Vasopressor support for MAP < 65 -Wean supplemental oxygen for O2 sats>90% -VTE prophylaxis -Antibiotics per ID. Had detailed discussions with ID, patient has history of MDRO with very resistant organisms -Nutrition consult for tube feedings -Tube feedings with aspiration precautions -Free water flushes to treat hypernatremia. -Mobility as tolerated -Accuchecks with glycemic control. Target glucose of 140-180 mg/dL -Bronchodilators with pulmonary hygiene per RT -Wound care nurse consulted -Discontinue femoral CVC as soon as feasible -Influenza and pneumonia vaccination per protocol ..care plan discussed at length with RN/RT at the bedside ...care plan discussed in detail in ICU-IDT rounds PROGNOSIS: GUARDED/POOR CONDITION: CRITICAL CODE STATUS: FULL CODE The high probability of a clinically significant, sudden or life-threatening deterioration of the [cardiovascular, neurology, renal] system(s) required my full and direct attention, intervention and personal management. The aggregate critical care time was [45] minutes without overlap. Time includes spent on; [x] Data Review and interpretation [x] Patient assessment and monitoring of vital signs [x] Documentation [x] Medication orders and management
[2018-10-02] MEDS ORDERED: NON-FORMULARY (Multivit-Min/Iron Fum/Folic Ac [Multi-Vitamin-Minerals Tablet] 1 EACH) PO SCH (10:00)
[2018-10-02] MEDS ORDERED: NACL 0.45% 500 ML IV SCH (10:00)
[2018-10-02] MEDS ORDERED: NON-FORMULARY (Zinc Sulfate [Zinc Sulfate] 220 MG) NGTUBE SCH (10:00)
[2018-10-02] MEDS: HEPARIN SUB-Q SCH ×2 (10:00→21:44)
[2018-10-02] MEDS ORDERED: Vasostrict 20 UNIT in NACL 0.9% 100 ML IV SCH (10:00)
[2018-10-02] MEDS ORDERED: POTASSIUM CHLORIDE FEEDTUBE ONE (10:00)
[2018-10-02] MEDS: VITAMIN C FEEDTUBE SCH ×3 (10:01→21:44)
[2018-10-02] MEDS: THERAGRAN Tab PO SCH (10:01)
[2018-10-02] MEDS: KEPPRA PO SCH ×2 (10:01→21:44)
[2018-10-02] MEDS: K-PHOS NEUTRAL PO SCH ×4 (10:01→18:32)
[2018-10-02] MEDS: ZINC SULFATE PO SCH (10:05)
--- NOTE | 2018-10-02 10:12 | Consultation ---
History of Present Illness Consult date: 10/02/18 Consult reason: congestive heart failure History of present illness: Patient is a 67 year old with multiple medical problems who resides in a residential. He was admitted to this hospital with hypotension, sepsis, severe anemia and acute kidney injury. A cardiac consultation was requested for management of known cardiomyopathy. There was no report of shortness of breath. CXR reports cardiomegaly but no evidence of heart failure The patient on examination appears very frail, elderly, contracted and laying in a position. An ECG is normal sinus rhythm with left bundle branch block with is chronic. Patient has had prior cardiac workup and has a history of nonichemic cardiomyopathy by a cardiac catheterization in 2014 that revealed no significant coronary artery disease, but a severe nonischemic cardiomyopathy with ejection fraction 20-25%. Most recent echocardiogram showed resolution of the cardiomyopathy ejection fraction of 50-55%. Medications and Allergies Allergies Allergy/AdvReac Type Severity Reaction Status Date / Time lisinopril Allergy Unknown Verified 10/01/18 15:17 tramadol Allergy Unknown Verified 07/29/18 18:39 Home Medications Medication Instructions Recorded Confirmed Last Taken Type Multivit-Min/Iron Fum/Folic AC 1 each PO DAILY 03/24/18 07/30/18 Unknown History [Qdsod-Zaenuuv-Pjymjvsz Tablet] Acetaminophen 650 mg NGTUBE Q6H PRN 07/30/18 07/30/18 Unknown History AtorvaSTATin [Lipitor] 40 mg NGTUBE QHS 07/30/18 07/30/18 Unknown History Dutasteride 0.5 mg NGTUBE QAM 07/30/18 07/30/18 Unknown History Ipratropium/Albuterol Sulfate 1 ampul IH BID 07/30/18 07/30/18 Unknown History [DUONEB *Not for PRN Use*] Lisinopril [Zestril TAB] 40 mg PO QDAY 07/30/18 07/30/18 Unknown History Tamsulosin [Flomax] 0.4 mg PO QDAY 07/30/18 07/30/18 Unknown History Vit C/Ascorbate Calcium,Sodium 500 mg NGTUBE BID 07/30/18 07/30/18 Unknown History [Vitamin C 500 mg/15 ml Liquid] Zinc Sulfate 220 mg NGTUBE QDAY 07/30/18 07/30/18 Unknown History levETIRAcetam [Keppra INJ] 500 mg PO Q12H 07/30/18 07/30/18 Unknown History Carvedilol [Coreg] 3.125 mg PO BID #60 tablet 08/23/18 Unknown Rx Furosemide [Lasix] 20 mg PO QDAY #30 tablet 08/23/18 Unknown Rx Oxycodone HCl/Acetaminophen 1 each PO Q8HR PRN #14 tablet 08/23/18 Unknown Rx [Percocet 7.5/325 mg] Phosphorus #1 [K-Phos Neutral] 250 mg PO QID #30 tablet 08/23/18 Unknown Rx hydroCHLOROthiazide [HCTZ] 12.5 mg PO QDAY #30 tablet 08/23/18 Unknown Rx Active Meds: Active Medications Acetaminophen (Tylenol) 650 mg FEEDTUBE Q6H PRN PRN Reason: Pain, Moderate (4-6) Albuterol (Proventil) 2.5 mg IH Q3HRT PRN PRN Reason: Shortness Of Breath Ascorbic Acid (Vitamin C) 500 mg FEEDTUBE BID [facility] Last Admin: 10/02/18 10:01 Dose: 500 mg Documented by: Atorvastatin Calcium (Lipitor) 40 mg FEEDTUBE QHS [facility] Last Admin: 10/01/18 23:45 Dose: 40 mg Documented by: Heparin Sodium (Porcine) (Heparin) 5,000 unit SUB-Q Q12HR [facility] Last Admin: 10/02/18 10:00 Dose: 5,000 unit Documented by: Sodium Chloride (Nacl 0.45% 1000 Ml) 1,000 mls @ 125 mls/hr IV DIRECT [facility] Last Admin: 10/02/18 04:58 Dose: 125 mls/hr Documented by: Meropenem (Merrem/Ns 500 Mg/50 Ml) 500 mg in 50 mls @ 50 mls/hr IV Q12HR [facility] Sodium Chloride (Nacl 0.45%) 500 mls @ 999 mls/hr IV DIRECT [facility] Stop: 10/02/18 10:31 Vasopressin 20 unit/ Sodium (Chloride) 101 mls @ 9.09 mls/hr IV TITR [facility]; Protocol Vancomycin HCl (Vancomycin/Ns 1 Gm/250 Ml) 1 gm in 250 mls @ 167.007 mls/hr IV Q24HR [facility] Norepinephrine 8 mg/ Sodium (Chloride) 250 mls @ 3.75 mls/hr IV TITR [facility]; Protocol Levetiracetam (Keppra) 500 mg PO BID [facility] Last Admin: 10/02/18 10:01 Dose: 500 mg Documented by: Multivitamins (Theragran Tab) 1 each PO DAILY [facility] Last Admin: 10/02/18 10:01 Dose: 1 each Documented by: Sodium Chloride (Sodium Chloride Flush Syringe 10 Ml) 10 ml IV BID [facility] Last Admin: 10/01/18 23:45 Dose: 10 ml Documented by: Sodium Chloride (Sodium Chloride Flush Syringe 10 Ml) 10 ml IV PRN PRN PRN Reason: LINE FLUSH Sodium Phosphate (K-Phos Neutral) 250 mg PO QID [facility] Last Admin: 10/02/18 10:01 Dose: 250 mg Documented by: Zinc Sulfate (Zinc Sulfate) 220 mg PO QDAY [facility] Physical Examination Vital Signs Pulse Resp Pulse Ox 96 H 48 H 99 10/01/18 14:16 10/01/18 14:16 10/01/18 14:16 General appearance: no acute distress Cardiac: Positive: Reg Rate and Rhythm Results 10/02/18 04:45 10/02/18 04:45 Cardiac Enzymes 10/01/18 10/02/18 Range/Units 15:15 04:45 AST 47 H 35 (5-40) units/L Lipids 10/01/18 Range/Units 14:29 Triglycerides 111 (2-149) mg/dL Cholesterol 36 L (50-199) mg/dL HDL Cholesterol 21 L (40-59) mg/dL Cholesterol/HDL Ratio 1.71 % CBC 10/01/18 10/02/18 Range/Units 14:29 04:45 WBC 18.5 H 18.3 H (4.5-11.0) K/mm3 RBC 2.68 L 2.40 L (3.65-5.03) M/mm3 Hgb 7.3 L 6.4 L (11.8-15.2) gm/dl Hct 23.1 L 20.4 L (35.5-45.6) % Plt Count 522 H 462 H (140-440) K/mm3 Lymph # 1.2 (1.2-5.4) K/mm3 Emery # 1.2 H (0.0-0.8) K/mm3 Eos # 0.2 (0.0-0.4) K/mm3 Baso # 0.1 (0.0-0.1) K/mm3 Comprehensive Metabolic Panel 10/01/18 10/01/18 10/02/18 Range/Units 14:29 15:15 04:45 Sodium 148 H 150 H 148 H (137-145) mmol/L Potassium 3.3 L 3.6 3.1 L (3.6-5.0) mmol/L Chloride 105.2 106.6 108.6 H (98-107) mmol/L Carbon Dioxide 22 23 21 L (22-30) mmol/L BUN 98 H 94 H 89 H (9-20) mg/dL Creatinine 2.0 H 2.1 H 1.8 H (0.8-1.5) mg/dL Glucose 142 H 132 H 99 (75-100) mg/dL Calcium 8.8 7.8 L 8.3 L (8.4-10.2) mg/dL AST 47 H 35 (5-40) units/L ALT 35 26 (7-56) units/L Alkaline Phosphatase 179 H 161 H (35-129) units/L Total Protein 6.9 6.9 (6.3-8.2) g/dL Albumin 2.1 L 1.7 L (3.9-5) g/dL Assessment and Plan Hypotension Sepsis Anemia Acute renal failure Multiple decubitus ulcers Resolving nonischemic cardiomyopathy [facility] 2014 documents no significant coronary artery disease but a decreased ejection fraction 20%. echocardiogram 02/2018 revealed near resolution of cardiomyopathy, ejection fraction now 50-55%. LBBB, chronic Chronic elevated troponin Conservative cardiac management.
[2018-10-02] MEDS: SODIUM CHLORIDE FLUSH SYRINGE 10 ML IV SCH (10:34)
[2018-10-02] MEDS ORDERED: PANCREAZE DR 10,500 UNIT FEEDTUBE PRN (10:35)
[2018-10-02] MEDS ORDERED: SODIUM BICARBONATE FEEDTUBE PRN (10:35)
[2018-10-02] MEDS ORDERED: SIMPLE SYRUP FEEDTUBE PRN ×2 (10:35)
[2018-10-02] MEDS: LEVOPHED 8 MG in NACL 0.9% 250ML 242 ML IV SCH (11:00)
[2018-10-02] MEDS ORDERED: D5W/0.45% NACL/KCL 30 MEQ 30 MEQ/1,000 ML BAG IV SCH (11:00)
[2018-10-02] MEDS ORDERED: NACL 0.9% 500 ML 500 ML ONE (11:55)
[2018-10-02] MEDS: VANCOMYCIN/NS 1 GM/250 ML 1 GM/250 ML BAG IV SCH (11:58)
[2018-10-02] MEDS: MERREM/NS 500 MG/50 ML 500 MG/50 ML BAG IV SCH (11:59)
--- NOTE | 2018-10-02 15:17 | Progress Note ---
Assessment and Plan / Sepsis continue Sepsis Protocol: IV antibiotic therapy, IVF resuscitation therapy, follow Blood cultures, IV pressors as clinically indicated to maintain MAP above 60, serial lactic acid. Pt admitted to ICU. Pulmonary consulted in ED. The high probability of a clinically significant, sudden or life threatening deterioration of the [renal, cardiac, pulmonary,] system(s) required my full and direct attention, intervention and personal management. The aggregate critical care time was [65] minutes. This time is in addition to time spent performing reported procedures but includes the following: [x] Data Review and interpretation [x] Patient assessment and monitoring of vital signs [x] Documentation [x] Medication orders and management / MÓNICA with vasomotor nephropathy IVF resuscitation therapy, monitor uop q shift, repeat bmp in am, nephrology consulted in ED. /Right upper lobe Pneumonia, suspect aspiration On Pneumonia Protocol: IV antibiotic therapy, supplemental oxygen, pulse oximetry, Sputum culture if sample available / Elevated troponin Likely due to sepsis with low blood pressure and renal failure Monitor with Serial cardiac enzymes, Cardiology consulted in ED, No EKG changes, supportive care, / UTI (lower urinary tract infection) IV antibiotic therapy, IV fluids, follow culture /Acute hypoxic Respiratory failure Likely due to underlying pneumonia Supplemental oxygen, nebulizer therapy, ABG, NIPPV as clinically indicated, pulse oximetry, /Moderate to severe protein calorie malnutrition - BMI 17.8, albumin 1.7 - We'll consult dietary, continue to feeding for now discharged / DVT prophylaxis SCD to BLE while in bed, prophylactic heparin Brief History: 67 YO Male [facility] Resident as [facility] with HTN, CVA, Obstructive Uropathy, Contracture, Decubitus Ulcers, FL, DM, OA, Seizure Disorder, COPD, Dementia, Debility, BPH presented to ED for evaluation, As per staff, the patient was found to have decreased responsiveness compared to baseline. Pt seen and evaluated in ED and found to have Sepsis secondary to UTI with concomitant RUL Pneumonia with a QSofa score of 8( GCS:3, MAP less than 70, Creatnine:2.1), Encephalopathy, and symptomatic anemia. Pt admitted to IMCU and initiated on Sepsis protocol. Radiological data: Chest x-ray: Limited exam. Mild cardiomegaly. The lungs are grossly clear although there is poor visualization of the right upper lobe. Hospitalist Physical exam: GENERAL: Elderly male lying on bed appeared to be in no discomfort. It appears to be very lethargic and aphasic HEENT: Normocephalic. Atraumatic. No conjunctival congestion or icterus. Patient has moist mucous membranes. NECK: Supple. Trachea midline. CHEST/LUNGS: Clear to auscultated bilaterally, breathing nonlabored. No wheezes crackles or rhonchi. HEART/CARDIOVASCULAR: Regular in rate and rhythm. S1 and S2 positive. ABDOMEN: Abdomen is soft, nontender. Patient has normal bowel sounds. SKIN: There is no rash. Warm and dry. NEURO: Does not Follow command. MUSCULOSKELETAL: No joint effusion, generalized weakness unable to move extremities EXTRIMITY: No edema, no cyanosis or clubbing. PSYCH: Unable to assess. Subjective Date of service: 10/02/18 Interval history: Patient seen and examined. Medical records and medication list reviewed. No acute event overnight noted by the RN. Patient unable to provide any history with severe dementia Patient on nasal cannula and on levophed, started on tube feeding Discussed plan of care at bedside with RN. Objective - Constitutional Vitals: Vital Signs - 12hr 10/02/18 10/02/18 10/02/18 03:21 03:30 03:41 Temperature Pulse Rate 91 H 93 H 91 H Pulse Rate [ Apical] Pulse Rate [ From Monitor] Pulse Rate [ Left Popliteal] Pulse Rate [ Right Posterior Tibial] Respiratory 24 27 H 30 H Rate Respiratory Rate [ Generalized] Blood Pressure 92/56 95/55 95/55 O2 Sat by Pulse 96 96 96 Oximetry 10/02/18 10/02/18 10/02/18 03:46 03:47 03:51 Temperature 97.4 F L Pulse Rate 91 H Pulse Rate [ 85 Apical] Pulse Rate [ 85 From Monitor] Pulse Rate [ 89 Left Popliteal] Pulse Rate [ 85 Right Posterior Tibial] Respiratory 18 Rate Respiratory Rate [ Generalized] Blood Pressure 87/52 O2 Sat by Pulse 96 Oximetry 10/02/18 10/02/18 10/02/18 04:00 04:11 04:21 Temperature Pulse Rate 88 100 H 96 H Pulse Rate [ Apical] Pulse Rate [ From Monitor] Pulse Rate [ Left Popliteal] Pulse Rate [ Right Posterior Tibial] Respiratory 16 38 H 37 H Rate Respiratory Rate [ Generalized] Blood Pressure 93/58 93/58 93/44 O2 Sat by Pulse 96 97 95 Oximetry 0510/02/18 10/02/18 04:30 04:41 04:51 Temperature Pulse Rate 100 H 95 H 88 Pulse Rate [ Apical] Pulse Rate [ From Monitor] Pulse Rate [ Left Popliteal] Pulse Rate [ Right Posterior Tibial] Respiratory 59 H 46 H 28 H Rate Respiratory Rate [ Generalized] Blood Pressure 106/65 93/44 111/70 O2 Sat by Pulse 96 97 97 Oximetry 10/02/18 10/02/18 10/02/18 04:55 05:00 05:11 Temperature Pulse Rate 91 H 89 Pulse Rate [ Apical] Pulse Rate [ From Monitor] Pulse Rate [ Left Popliteal] Pulse Rate [ Right Posterior Tibial] Respiratory 34 H 35 H Rate Respiratory 26 H Rate [ Generalized] Blood Pressure 82/43 74/41 O2 Sat by Pulse 97 98 Oximetry 10/02/18 10/02/18 10/02/18 05:21 05:30 05:41 Temperature Pulse Rate 85 85 85 Pulse Rate [ Apical] Pulse Rate [ From Monitor] Pulse Rate [ Left Popliteal] Pulse Rate [ Right Posterior Tibial] Respiratory 35 H 41 H 27 H Rate Respiratory Rate [ Generalized] Blood Pressure 88/44 90/48 90/48 O2 Sat by Pulse 97 96 94 Oximetry 10/02/18 10/02/18 10/02/18 05:51 06:00 06:11 Temperature Pulse Rate 89 87 88 Pulse Rate [ Apical] Pulse Rate [ From Monitor] Pulse Rate [ Left Popliteal] Pulse Rate [ Right Posterior Tibial] Respiratory 41 H 37 H 35 H Rate Respiratory Rate [ Generalized] Blood Pressure 87/51 86/47 87/51 O2 Sat by Pulse 87 90 96 Oximetry 10/02/18 10/02/18 10/02/18 06:21 06:30 06:41 Temperature Pulse Rate 94 H 89 88 Pulse Rate [ Apical] Pulse Rate [ From Monitor] Pulse Rate [ Left Popliteal] Pulse Rate [ Right Posterior Tibial] Respiratory 38 H 37 H 30 H Rate Respiratory Rate [ Generalized] Blood Pressure 96/57 100/54 86/47 O2 Sat by Pulse 98 97 98 Oximetry 10/02/18 10/02/18 10/02/18 06:51 07:00 07:11 Temperature Pulse Rate 89 96 H 100 H Pulse Rate [ Apical] Pulse Rate [ From Monitor] Pulse Rate [ Left Popliteal] Pulse Rate [ Right Posterior Tibial] Respiratory 35 H 38 H 41 H Rate Respiratory Rate [ Generalized] Blood Pressure 105/52 114/61 115/66 O2 Sat by Pulse 96 98 98 Oximetry 10/02/18 10/02/18 10/02/18 07:21 07:30 07:41 Temperature Pulse Rate 84 88 90 Pulse Rate [ Apical] Pulse Rate [ From Monitor] Pulse Rate [ Left Popliteal] Pulse Rate [ Right Posterior Tibial] Respiratory 34 H 31 H 35 H Rate Respiratory Rate [ Generalized] Blood Pressure 109/59 89/43 89/43 O2 Sat by Pulse 98 98 98 Oximetry 10/02/18 10/02/18 10/02/18 07:46 07:51 08:00 Temperature 99.7 F H Pulse Rate 96 H 96 H Pulse Rate [ Apical] Pulse Rate [ From Monitor] Pulse Rate [ Left Popliteal] Pulse Rate [ Right Posterior Tibial] Respiratory 32 H 38 H Rate Respiratory Rate [ Generalized] Blood Pressure 89/48 92/51 O2 Sat by Pulse 98 97 97 Oximetry 10/02/18 10/02/18 10/02/18 08:10 08:11 08:21 Temperature Pulse Rate 94 H 89 Pulse Rate [ Apical] Pulse Rate [ From Monitor] Pulse Rate [ Left Popliteal] Pulse Rate [ Right Posterior Tibial] Respiratory 38 H 36 H 36 H Rate Respiratory Rate [ Generalized] Blood Pressure 92/51 87/54 O2 Sat by Pulse 98 98 Oximetry 10/02/18 10/02/18 10/02/18 08:30 08:41 08:51 Temperature Pulse Rate 89 90 84 Pulse Rate [ Apical] Pulse Rate [ From Monitor] Pulse Rate [ Left Popliteal] Pulse Rate [ Right Posterior Tibial] Respiratory 36 H 42 H 33 H Rate Respiratory Rate [ Generalized] Blood Pressure 91/54 91/54 107/56 O2 Sat by Pulse 99 98 99 Oximetry 10/02/18 10/02/18 10/02/18 09:00 09:11 09:21 Temperature Pulse Rate 89 92 H 84 Pulse Rate [ Apical] Pulse Rate [ From Monitor] Pulse Rate [ Left Popliteal] Pulse Rate [ Right Posterior Tibial] Respiratory 33 H 39 H 36 H Rate Respiratory Rate [ Generalized] Blood Pressure 94/54 94/54 110/63 O2 Sat by Pulse 98 98 99 Oximetry 10/02/18 10/02/18 10/02/18 09:30 09:41 09:51 Temperature Pulse Rate 83 85 86 Pulse Rate [ Apical] Pulse Rate [ From Monitor] Pulse Rate [ Left Popliteal] Pulse Rate [ Right Posterior Tibial] Respiratory 34 H 32 H 35 H Rate Respiratory Rate [ Generalized] Blood Pressure 88/50 88/50 104/60 O2 Sat by Pulse 99 98 99 Oximetry 10/02/18 10/02/18 10/02/18 10:00 10:11 10:21 Temperature Pulse Rate 85 85 87 Pulse Rate [ Apical] Pulse Rate [ From Monitor] Pulse Rate [ Left Popliteal] Pulse Rate [ Right Posterior Tibial] Respiratory 34 H 31 H 37 H Rate Respiratory Rate [ Generalized] Blood Pressure 99/57 99/57 102/57 O2 Sat by Pulse 99 99 100 Oximetry 10/02/18 10/02/18 10/02/18 10:30 10:41 10:51 Temperature Pulse Rate 90 87 83 Pulse Rate [ Apical] Pulse Rate [ From Monitor] Pulse Rate [ Left Popliteal] Pulse Rate [ Right Posterior Tibial] Respiratory 38 H 37 H 31 H Rate Respiratory Rate [ Generalized] Blood Pressure 110/58 110/58 110/58 O2 Sat by Pulse 99 99 99 Oximetry 10/02/18 10/02/18 10/02/18 11:00 11:11 11:21 Temperature Pulse Rate 83 87 77 Pulse Rate [ Apical] Pulse Rate [ From Monitor] Pulse Rate [ Left Popliteal] Pulse Rate [ Right Posterior Tibial] Respiratory 31 H 30 H 28 H Rate Respiratory Rate [ Generalized] Blood Pressure 111/54 111/54 111/54 O2 Sat by Pulse 99 99 99 Oximetry 10/02/18 10/02/18 10/02/18 11:30 11:41 11:51 Temperature Pulse Rate 79 92 H 85 Pulse Rate [ Apical] Pulse Rate [ From Monitor] Pulse Rate [ Left Popliteal] Pulse Rate [ Right Posterior Tibial] Respiratory 29 H 39 H 33 H Rate Respiratory Rate [ Generalized] Blood Pressure 104/53 104/53 109/61 O2 Sat by Pulse 99 99 100 Oximetry 10/02/18 10/02/18 10/02/18 12:00 12:11 12:21 Temperature 98.8 F Pulse Rate 86 93 H 92 H Pulse Rate [ Apical] Pulse Rate [ From Monitor] Pulse Rate [ Left Popliteal] Pulse Rate [ Right Posterior Tibial] Respiratory 33 H 48 H 46 H Rate Respiratory Rate [ Generalized] Blood Pressure 97/54 97/54 109/61 O2 Sat by Pulse 100 98 97 Oximetry 10/02/18 10/02/18 10/02/18 12:31 12:41 12:51 Temperature Pulse Rate 97 H 96 H 89 Pulse Rate [ Apical] Pulse Rate [ From Monitor] Pulse Rate [ Left Popliteal] Pulse Rate [ Right Posterior Tibial] Respiratory 47 H 22 46 H Rate Respiratory Rate [ Generalized] Blood Pressure 93/66 93/66 107/65 O2 Sat by Pulse 98 98 98 Oximetry 10/02/18 10/02/18 12:55 13:00 Temperature 98.8 F Pulse Rate 85 88 Pulse Rate [ Apical] Pulse Rate [ From Monitor] Pulse Rate [ Left Popliteal] Pulse Rate [ Right Posterior Tibial] Respiratory 37 H 40 H Rate Respiratory Rate [ Generalized] Blood Pressure 97/60 97/60 O2 Sat by Pulse 97 96 Oximetry - Labs CBC & Chem 7: 10/03/18 06:45 10/03/18 06:45 Labs: Abnormal lab results 10/01/18 10/01/18 10/01/18 Range/Units 14:29 15:13 15:15 WBC (4.5-11.0) K/mm3 RBC (3.65-5.03) M/mm3 Hgb (11.8-15.2) gm/dl Hct (35.5-45.6) % MCH (28-32) pg MCHC (32-34) % RDW (13.2-15.2) % Plt Count (140-440) K/mm3 Seg Neuts % (Manual) (40.0-70.0) % Lymphocytes % (Manual) (13.4-35.0) % Seg Neutrophils # Man (1.8-7.7) K/mm3 Lymphocytes # (Manual) (1.2-5.4) K/mm3 POC ABG pH (7.35-7.45) POC ABG pO2 (80-105) Sodium 150 H (137-145) mmol/L Potassium (3.6-5.0) mmol/L Chloride (98-107) mmol/L Carbon Dioxide (22-30) mmol/L BUN 94 H (9-20) mg/dL Creatinine 2.1 H (0.8-1.5) mg/dL Glucose 132 H (75-100) mg/dL POC Glucose (70-105) Lactic Acid (0.7-2.0) mmol/L Calcium 7.8 L (8.4-10.2) mg/dL Phosphorus (2.5-4.5) mg/dL Magnesium (1.7-2.3) mg/dL AST 47 H (5-40) units/L Alkaline Phosphatase 179 H (35-129) units/L Troponin T (0.00-0.029) ng/mL Albumin 2.1 L (3.9-5) g/dL Cholesterol 36 L (50-199) mg/dL LDL Cholesterol Direct 6 L (50-130) mg/dL HDL Cholesterol 21 L (40-59) mg/dL Urine WBC (Auto) > 182.0 H (0.0-6.0) /HPF Urine Creatinine (0.1-20.0) mg/dL Crossmatch 10/01/18 10/01/18 10/01/18 Range/Units 15:15 17:03 18:12 WBC (4.5-11.0) K/mm3 RBC (3.65-5.03) M/mm3 Hgb (11.8-15.2) gm/dl Hct (35.5-45.6) % MCH (28-32) pg MCHC (32-34) % RDW (13.2-15.2) % Plt Count (140-440) K/mm3 Seg Neuts % (Manual) (40.0-70.0) % Lymphocytes % (Manual) (13.4-35.0) % Seg Neutrophils # Man (1.8-7.7) K/mm3 Lymphocytes # (Manual) (1.2-5.4) K/mm3 POC ABG pH 7.480 H (7.35-7.45) POC ABG pO2 64 L (80-105) Sodium (137-145) mmol/L Potassium (3.6-5.0) mmol/L Chloride (98-107) mmol/L Carbon Dioxide (22-30) mmol/L BUN (9-20) mg/dL Creatinine (0.8-1.5) mg/dL Glucose (75-100) mg/dL POC Glucose (70-105) Lactic Acid 2.60 H* 2.20 H* (0.7-2.0) mmol/L Calcium (8.4-10.2) mg/dL Phosphorus (2.5-4.5) mg/dL Magnesium (1.7-2.3) mg/dL AST (5-40) units/L Alkaline Phosphatase (35-129) units/L Troponin T (0.00-0.029) ng/mL Albumin (3.9-5) g/dL Cholesterol (50-199) mg/dL LDL Cholesterol Direct (50-130) mg/dL HDL Cholesterol (40-59) mg/dL Urine WBC (Auto) (0.0-6.0) /HPF Urine Creatinine (0.1-20.0) mg/dL Crossmatch 10/01/18 10/01/18 10/01/18 Range/Units 18:23 18:23 18:48 WBC (4.5-11.0) K/mm3 RBC (3.65-5.03) M/mm3 Hgb (11.8-15.2) gm/dl Hct (35.5-45.6) % MCH (28-32) pg MCHC (32-34) % RDW (13.2-15.2) % Plt Count (140-440) K/mm3 Seg Neuts % (Manual) (40.0-70.0) % Lymphocytes % (Manual) (13.4-35.0) % Seg Neutrophils # Man (1.8-7.7) K/mm3 Lymphocytes # (Manual) (1.2-5.4) K/mm3 POC ABG pH (7.35-7.45) POC ABG pO2 (80-105) Sodium (137-145) mmol/L Potassium (3.6-5.0) mmol/L Chloride (98-107) mmol/L Carbon Dioxide (22-30) mmol/L BUN (9-20) mg/dL Creatinine (0.8-1.5) mg/dL Glucose (75-100) mg/dL POC Glucose (70-105) Lactic Acid 2.30 H* (0.7-2.0) mmol/L Calcium (8.4-10.2) mg/dL Phosphorus (2.5-4.5) mg/dL Magnesium 3.30 H (1.7-2.3) mg/dL AST (5-40) units/L Alkaline Phosphatase (35-129) units/L Troponin T 0.378 H* (0.00-0.029) ng/mL Albumin (3.9-5) g/dL Cholesterol (50-199) mg/dL LDL Cholesterol Direct (50-130) mg/dL HDL Cholesterol (40-59) mg/dL Urine WBC (Auto) (0.0-6.0) /HPF Urine Creatinine (0.1-20.0) mg/dL Crossmatch 10/01/18 10/01/18 10/01/18 Range/Units 21:20 23:48 23:48 WBC (4.5-11.0) K/mm3 RBC (3.65-5.03) M/mm3 Hgb (11.8-15.2) gm/dl Hct (35.5-45.6) % MCH (28-32) pg MCHC (32-34) % RDW (13.2-15.2) % Plt Count (140-440) K/mm3 Seg Neuts % (Manual) (40.0-70.0) % Lymphocytes % (Manual) (13.4-35.0) % Seg Neutrophils # Man (1.8-7.7) K/mm3 Lymphocytes # (Manual) (1.2-5.4) K/mm3 POC ABG pH (7.35-7.45) POC ABG pO2 (80-105) Sodium (137-145) mmol/L Potassium (3.6-5.0) mmol/L Chloride (98-107) mmol/L Carbon Dioxide (22-30) mmol/L BUN (9-20) mg/dL Creatinine (0.8-1.5) mg/dL Glucose (75-100) mg/dL POC Glucose (70-105) Lactic Acid 2.70 H* 2.50 H* (0.7-2.0) mmol/L Calcium (8.4-10.2) mg/dL Phosphorus (2.5-4.5) mg/dL Magnesium (1.7-2.3) mg/dL AST (5-40) units/L Alkaline Phosphatase (35-129) units/L Troponin T 0.336 H* (0.00-0.029) ng/mL Albumin (3.9-5) g/dL Cholesterol (50-199) mg/dL LDL Cholesterol Direct (50-130) mg/dL HDL Cholesterol (40-59) mg/dL Urine WBC (Auto) (0.0-6.0) /HPF Urine Creatinine (0.1-20.0) mg/dL Crossmatch 10/02/18 10/02/18 10/02/18 Range/Units 04:45 04:45 04:45 WBC 18.3 H (4.5-11.0) K/mm3 RBC 2.40 L (3.65-5.03) M/mm3 Hgb 6.4 L (11.8-15.2) gm/dl Hct 20.4 L (35.5-45.6) % MCH 27 L (28-32) pg MCHC 31 L (32-34) % RDW 19.1 H (13.2-15.2) % Plt Count 462 H (140-440) K/mm3 Seg Neuts % (Manual) 78.0 H (40.0-70.0) % Lymphocytes % (Manual) 5.0 L (13.4-35.0) % Seg Neutrophils # Man 14.3 H (1.8-7.7) K/mm3 Lymphocytes # (Manual) 0.9 L (1.2-5.4) K/mm3 POC ABG pH (7.35-7.45) POC ABG pO2 (80-105) Sodium 148 H (137-145) mmol/L Potassium 3.1 L (3.6-5.0) mmol/L Chloride 108.6 H (98-107) mmol/L Carbon Dioxide 21 L (22-30) mmol/L BUN 89 H (9-20) mg/dL Creatinine 1.8 H (0.8-1.5) mg/dL Glucose (75-100) mg/dL POC Glucose (70-105) Lactic Acid (0.7-2.0) mmol/L Calcium 8.3 L (8.4-10.2) mg/dL Phosphorus (2.5-4.5) mg/dL Magnesium (1.7-2.3) mg/dL AST (5-40) units/L Alkaline Phosphatase 161 H (35-129) units/L Troponin T (0.00-0.029) ng/mL Albumin 1.7 L (3.9-5) g/dL Cholesterol (50-199) mg/dL LDL Cholesterol Direct (50-130) mg/dL HDL Cholesterol (40-59) mg/dL Urine WBC (Auto) (0.0-6.0) /HPF Urine Creatinine 74.7 H (0.1-20.0) mg/dL Crossmatch 10/02/18 10/02/18 10/02/18 Range/Units 04:45 04:45 09:46 WBC (4.5-11.0) K/mm3 RBC (3.65-5.03) M/mm3 Hgb (11.8-15.2) gm/dl Hct (35.5-45.6) % MCH (28-32) pg MCHC (32-34) % RDW (13.2-15.2) % Plt Count (140-440) K/mm3 Seg Neuts % (Manual) (40.0-70.0) % Lymphocytes % (Manual) (13.4-35.0) % Seg Neutrophils # Man (1.8-7.7) K/mm3 Lymphocytes # (Manual) (1.2-5.4) K/mm3 POC ABG pH (7.35-7.45) POC ABG pO2 (80-105) Sodium (137-145) mmol/L Potassium (3.6-5.0) mmol/L Chloride (98-107) mmol/L Carbon Dioxide (22-30) mmol/L BUN (9-20) mg/dL Creatinine (0.8-1.5) mg/dL Glucose (75-100) mg/dL POC Glucose (70-105) Lactic Acid 2.10 H* (0.7-2.0) mmol/L Calcium (8.4-10.2) mg/dL Phosphorus 5.00 H (2.5-4.5) mg/dL Magnesium (1.7-2.3) mg/dL AST (5-40) units/L Alkaline Phosphatase (35-129) units/L Troponin T (0.00-0.029) ng/mL Albumin (3.9-5) g/dL Cholesterol (50-199) mg/dL LDL Cholesterol Direct (50-130) mg/dL HDL Cholesterol (40-59) mg/dL Urine WBC (Auto) (0.0-6.0) /HPF Urine Creatinine (0.1-20.0) mg/dL Crossmatch See Detail 10/02/18 Range/Units 11:47 WBC (4.5-11.0) K/mm3 RBC (3.65-5.03) M/mm3 Hgb (11.8-15.2) gm/dl Hct (35.5-45.6) % MCH (28-32) pg MCHC (32-34) % RDW (13.2-15.2) % Plt Count (140-440) K/mm3 Seg Neuts % (Manual) (40.0-70.0) % Lymphocytes % (Manual) (13.4-35.0) % Seg Neutrophils # Man (1.8-7.7) K/mm3 Lymphocytes # (Manual) (1.2-5.4) K/mm3 POC ABG pH (7.35-7.45) POC ABG pO2 (80-105) Sodium (137-145) mmol/L Potassium (3.6-5.0) mmol/L Chloride (98-107) mmol/L Carbon Dioxide (22-30) mmol/L BUN (9-20) mg/dL Creatinine (0.8-1.5) mg/dL Glucose (75-100) mg/dL POC Glucose 112 H (70-105) Lactic Acid (0.7-2.0) mmol/L Calcium (8.4-10.2) mg/dL Phosphorus (2.5-4.5) mg/dL Magnesium (1.7-2.3) mg/dL AST (5-40) units/L Alkaline Phosphatase (35-129) units/L Troponin T (0.00-0.029) ng/mL Albumin (3.9-5) g/dL Cholesterol (50-199) mg/dL LDL Cholesterol Direct (50-130) mg/dL HDL Cholesterol (40-59) mg/dL Urine WBC (Auto) (0.0-6.0) /HPF Urine Creatinine (0.1-20.0) mg/dL Crossmatch
--- NOTE | 2018-10-02 15:31 | Consultation ---
History of Present Illness - Reason for Consult Consult date: 10/02/18 septic shock, MDR E coli Requesting physician: KASIA BAKER - History of Present Illness 67 y/o male with hsitory of HTN, CVA, Obstructive Uropathy, Contracture, Multiple Decubitus Ulcers, [place], DM, OA, Seizure Disorder, COPD, Dementia, Debility, BPH, well known to ID due to multiple admissions from ducubitus ulcers infections, resident of care home, admitted on due to decreased responsiveness compared to baseline and hypotension SBP in 60's. Most recent admission on 07/29/2018 he was found to have septic shock due to polymicrobial bacteremia ESBL E coli, MDR Proteus, Strep and E faecalis probably from multiple infected decubitus ulcers and less likely UTI. 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 Repeat blood cultures 07/31/2018 showed same MDR E coli 1 of 4 bottles then 08/06/2018 blood cultures showed no growth. His prognosis has been poor and discussed previously with family hospice indication but they declined. His wounds are not curable considering his contractures, bed bound status and poor nutritional status. There was also suspicion of septic arthritis of left hip from decubitus ulcer. Patient did not respond to carbapenem and was placed on vabomere for 14 days. In the ED, temp 98.8, HR 96, R 48, O2 sat 99, BP 58/33. WBC 18. Hg 7.3. Plat 5 22. Lactate 2.6. AST 47. UA 182 wbc and large LE. Blood culture 10/01/2018 GPC in clusters 2 of 4. ROS: unable to obtain Medications and Allergies Allergies Allergy/AdvReac Type Severity Reaction Status Date / Time lisinopril Allergy Unknown Verified 10/01/18 15:17 tramadol Allergy Unknown Verified 07/29/18 18:39 Home Medications Medication Instructions Recorded Confirmed Last Taken Type Multivit-Min/Iron Fum/Folic AC 1 each PO DAILY 03/24/18 07/30/18 Unknown History [Iepuo-Yndumuv-Ejeyomec Tablet] Acetaminophen 650 mg NGTUBE Q6H PRN 07/30/18 07/30/18 Unknown History AtorvaSTATin [Lipitor] 40 mg NGTUBE QHS 07/30/18 07/30/18 Unknown History Dutasteride 0.5 mg NGTUBE QAM 07/30/18 07/30/18 Unknown History Ipratropium/Albuterol Sulfate 1 ampul IH BID 07/30/18 07/30/18 Unknown History [DUONEB *Not for PRN Use*] Lisinopril [Zestril TAB] 40 mg PO QDAY 07/30/18 07/30/18 Unknown History Tamsulosin [Flomax] 0.4 mg PO QDAY 07/30/18 07/30/18 Unknown History Vit C/Ascorbate Calcium,Sodium 500 mg NGTUBE BID 07/30/18 07/30/18 Unknown History [Vitamin C 500 mg/15 ml Liquid] Zinc Sulfate 220 mg NGTUBE QDAY 07/30/18 07/30/18 Unknown History levETIRAcetam [Keppra INJ] 500 mg PO Q12H 07/30/18 07/30/18 Unknown History Carvedilol [Coreg] 3.125 mg PO BID #60 tablet 08/23/18 Unknown Rx Furosemide [Lasix] 20 mg PO QDAY #30 tablet 08/23/18 Unknown Rx Oxycodone HCl/Acetaminophen 1 each PO Q8HR PRN #14 tablet 08/23/18 Unknown Rx [Percocet 7.5/325 mg] Phosphorus #1 [K-Phos Neutral] 250 mg PO QID #30 tablet 08/23/18 Unknown Rx hydroCHLOROthiazide [HCTZ] 12.5 mg PO QDAY #30 tablet 08/23/18 Unknown Rx Active Meds: Active Medications Acetaminophen (Tylenol) 650 mg FEEDTUBE Q6H PRN PRN Reason: Pain, Moderate (4-6) Albuterol (Proventil) 2.5 mg IH Q3HRT PRN PRN Reason: Shortness Of Breath Lipase/Protease/Amylase (Pancre[address]adela Dr 10,500 Unit) 1 each FEEDTUBE PRN PRN PRN Reason: For Clogged Feeding Tube Ascorbic Acid (Vitamin C) 500 mg FEEDTUBE BID [facility] Last Admin: 10/02/18 10:01 Dose: 500 mg Documented by: Atorvastatin Calcium (Lipitor) 40 mg FEEDTUBE QHS [facility] Last Admin: 10/01/18 23:45 Dose: 40 mg Documented by: Heparin Sodium (Porcine) (Heparin) 5,000 unit SUB-Q Q12HR [facility] Last Admin: 10/02/18 10:00 Dose: 5,000 unit Documented by: Meropenem (Merrem/Ns 500 Mg/50 Ml) 500 mg in 50 mls @ 50 mls/hr IV Q12HR [facility] Last Admin: 10/02/18 11:59 Dose: 50 mls/hr Documented by: Vasopressin 20 unit/ Sodium (Chloride) 101 mls @ 9.09 mls/hr IV TITR [facility]; Protocol Vancomycin HCl (Vancomycin/Ns 1 Gm/250 Ml) 1 gm in 250 mls @ 167.007 mls/hr IV Q24HR [facility] Last Admin: 10/02/18 11:58 Dose: 167.007 mls/hr Documented by: Norepinephrine 8 mg/ Sodium (Chloride) 250 mls @ 3.75 mls/hr IV TITR [facility]; Protocol Last Admin: 10/02/18 11:00 Dose: 14 mcg/min, 26.25 mls/hr Documented by: Potassium Chloride/Dextrose/Sod Cl (D5w/0.45% Nacl/Kcl 30 Meq) 30 meq in 1,000 mls @ 50 mls/hr IV DIRECT [facility] Last Admin: 10/02/18 12:00 Dose: 50 mls/hr Documented by: Levetiracetam (Keppra) 500 mg PO BID [facility] Last Admin: 10/02/18 10:01 Dose: 500 mg Documented by: Multivitamins (Theragran Tab) 1 each PO DAILY [facility] Last Admin: 10/02/18 10:01 Dose: 1 each Documented by: Simple Syrup (Simple Syrup) 15 ml FEEDTUBE PRN PRN PRN Reason: Hypoglycemia Simple Syrup (Simple Syrup) 30 ml FEEDTUBE PRN PRN PRN Reason: Hypoglycemia Sodium Bicarbonate (Sodium Bicarbonate) 325 mg FEEDTUBE PRN PRN PRN Reason: For Clogged Feeding Tube Sodium Chloride (Sodium Chloride Flush Syringe 10 Ml) 10 ml IV BID [facility] Last Admin: 10/01/18 23:45 Dose: 10 ml Documented by: Sodium Chloride (Sodium Chloride Flush Syringe 10 Ml) 10 ml IV PRN PRN PRN Reason: LINE FLUSH Sodium Phosphate (K-Phos Neutral) 250 mg PO QID [facility] Last Admin: 10/02/18 10:01 Dose: 250 mg Documented by: Zinc Sulfate (Zinc Sulfate) 220 mg PO QDAY [facility] Physical Examination - Physical Exam Narrative exam: General appearance: Alert in mild respiratoy distress non verbal Eyes: anicteric sclerae, moist conjunctivae; no lid-lag; PERRLA HENT: Atraumatic; oropharynx limited Neck: Trachea midline; supple, no thyromegaly or lymphadenopathy Lungs: scattered rhonchi CV: tachycardic Abdomen: Soft, non-tender;PEG Extremities: altaf contracted legs, multiple wounds covered Skin: multiple skin tears Psych: no agitated Neuro: alert non verbal no agitated - Constitutional Vitals: Vital Signs Temp Pulse Resp BP Pulse Ox 98.8 F 88 40 H 97/60 96 10/02/18 12:55 10/02/18 13:00 10/02/18 13:00 10/02/18 13:00 10/02/18 13:00 Temperature -Last 24 Hours Temperature 98.8 F Temperature 98.8 F Temperature 99.7 F Temperature 97.4 F Temperature 97.2 F Temperature 98.0 F Results - Labs CBC & Chem 7: 10/02/18 04:45 10/02/18 04:45 Labs: Abnormal lab results 10/01/18 10/01/18 10/01/18 Range/Units 15:13 15:15 15:15 WBC (4.5-11.0) K/mm3 RBC (3.65-5.03) M/mm3 Hgb (11.8-15.2) gm/dl Hct (35.5-45.6) % MCH (28-32) pg MCHC (32-34) % RDW (13.2-15.2) % Plt Count (140-440) K/mm3 Seg Neuts % (Manual) (40.0-70.0) % Lymphocytes % (Manual) (13.4-35.0) % Seg Neutrophils # Man (1.8-7.7) K/mm3 Lymphocytes # (Manual) (1.2-5.4) K/mm3 POC ABG pH (7.35-7.45) POC ABG pO2 (80-105) Sodium 150 H (137-145) mmol/L Potassium (3.6-5.0) mmol/L Chloride (98-107) mmol/L Carbon Dioxide (22-30) mmol/L BUN 94 H (9-20) mg/dL Creatinine 2.1 H (0.8-1.5) mg/dL Glucose 132 H (75-100) mg/dL POC Glucose (70-105) Lactic Acid 2.60 H* (0.7-2.0) mmol/L Calcium 7.8 L (8.4-10.2) mg/dL Phosphorus (2.5-4.5) mg/dL Magnesium (1.7-2.3) mg/dL AST 47 H (5-40) units/L Alkaline Phosphatase 179 H (35-129) units/L Troponin T (0.00-0.029) ng/mL Albumin 2.1 L (3.9-5) g/dL Urine WBC (Auto) > 182.0 H (0.0-6.0) /HPF Urine Creatinine (0.1-20.0) mg/dL Crossmatch 10/01/18 10/01/18 10/01/18 Range/Units 17:03 18:12 18:23 WBC (4.5-11.0) K/mm3 RBC (3.65-5.03) M/mm3 Hgb (11.8-15.2) gm/dl Hct (35.5-45.6) % MCH (28-32) pg MCHC (32-34) % RDW (13.2-15.2) % Plt Count (140-440) K/mm3 Seg Neuts % (Manual) (40.0-70.0) % Lymphocytes % (Manual) (13.4-35.0) % Seg Neutrophils # Man (1.8-7.7) K/mm3 Lymphocytes # (Manual) (1.2-5.4) K/mm3 POC ABG pH 7.480 H (7.35-7.45) POC ABG pO2 64 L (80-105) Sodium (137-145) mmol/L Potassium (3.6-5.0) mmol/L Chloride (98-107) mmol/L Carbon Dioxide (22-30) mmol/L BUN (9-20) mg/dL Creatinine (0.8-1.5) mg/dL Glucose (75-100) mg/dL POC Glucose (70-105) Lactic Acid 2.20 H* (0.7-2.0) mmol/L Calcium (8.4-10.2) mg/dL Phosphorus (2.5-4.5) mg/dL Magnesium (1.7-2.3) mg/dL AST (5-40) units/L Alkaline Phosphatase (35-129) units/L Troponin T 0.378 H* (0.00-0.029) ng/mL Albumin (3.9-5) g/dL Urine WBC (Auto) (0.0-6.0) /HPF Urine Creatinine (0.1-20.0) mg/dL Crossmatch 10/01/18 10/01/18 10/01/18 Range/Units 18:23 18:48 21:20 WBC (4.5-11.0) K/mm3 RBC (3.65-5.03) M/mm3 Hgb (11.8-15.2) gm/dl Hct (35.5-45.6) % MCH (28-32) pg MCHC (32-34) % RDW (13.2-15.2) % Plt Count (140-440) K/mm3 Seg Neuts % (Manual) (40.0-70.0) % Lymphocytes % (Manual) (13.4-35.0) % Seg Neutrophils # Man (1.8-7.7) K/mm3 Lymphocytes # (Manual) (1.2-5.4) K/mm3 POC ABG pH (7.35-7.45) POC ABG pO2 (80-105) Sodium (137-145) mmol/L Potassium (3.6-5.0) mmol/L Chloride (98-107) mmol/L Carbon Dioxide (22-30) mmol/L BUN (9-20) mg/dL Creatinine (0.8-1.5) mg/dL Glucose (75-100) mg/dL POC Glucose (70-105) Lactic Acid 2.30 H* 2.70 H* (0.7-2.0) mmol/L Calcium (8.4-10.2) mg/dL Phosphorus (2.5-4.5) mg/dL Magnesium 3.30 H (1.7-2.3) mg/dL AST (5-40) units/L Alkaline Phosphatase (35-129) units/L Troponin T (0.00-0.029) ng/mL Albumin (3.9-5) g/dL Urine WBC (Auto) (0.0-6.0) /HPF Urine Creatinine (0.1-20.0) mg/dL Crossmatch 10/01/18 10/01/18 10/02/18 Range/Units 23:48 23:48 04:45 WBC (4.5-11.0) K/mm3 RBC (3.65-5.03) M/mm3 Hgb (11.8-15.2) gm/dl Hct (35.5-45.6) % MCH (28-32) pg MCHC (32-34) % RDW (13.2-15.2) % Plt Count (140-440) K/mm3 Seg Neuts % (Manual) (40.0-70.0) % Lymphocytes % (Manual) (13.4-35.0) % Seg Neutrophils # Man (1.8-7.7) K/mm3 Lymphocytes # (Manual) (1.2-5.4) K/mm3 POC ABG pH (7.35-7.45) POC ABG pO2 (80-105) Sodium (137-145) mmol/L Potassium (3.6-5.0) mmol/L Chloride (98-107) mmol/L Carbon Dioxide (22-30) mmol/L BUN (9-20) mg/dL Creatinine (0.8-1.5) mg/dL Glucose (75-100) mg/dL POC Glucose (70-105) Lactic Acid 2.50 H* (0.7-2.0) mmol/L Calcium (8.4-10.2) mg/dL Phosphorus (2.5-4.5) mg/dL Magnesium (1.7-2.3) mg/dL AST (5-40) units/L Alkaline Phosphatase (35-129) units/L Troponin T 0.336 H* (0.00-0.029) ng/mL Albumin (3.9-5) g/dL Urine WBC (Auto) (0.0-6.0) /HPF Urine Creatinine 74.7 H (0.1-20.0) mg/dL Crossmatch 10/02/18 10/02/18 10/02/18 Range/Units 04:45 04:45 04:45 WBC 18.3 H (4.5-11.0) K/mm3 RBC 2.40 L (3.65-5.03) M/mm3 Hgb 6.4 L (11.8-15.2) gm/dl Hct 20.4 L (35.5-45.6) % MCH 27 L (28-32) pg MCHC 31 L (32-34) % RDW 19.1 H (13.2-15.2) % Plt Count 462 H (140-440) K/mm3 Seg Neuts % (Manual) 78.0 H (40.0-70.0) % Lymphocytes % (Manual) 5.0 L (13.4-35.0) % Seg Neutrophils # Man 14.3 H (1.8-7.7) K/mm3 Lymphocytes # (Manual) 0.9 L (1.2-5.4) K/mm3 POC ABG pH (7.35-7.45) POC ABG pO2 (80-105) Sodium 148 H (137-145) mmol/L Potassium 3.1 L (3.6-5.0) mmol/L Chloride 108.6 H (98-107) mmol/L Carbon Dioxide 21 L (22-30) mmol/L BUN 89 H (9-20) mg/dL Creatinine 1.8 H (0.8-1.5) mg/dL Glucose (75-100) mg/dL POC Glucose (70-105) Lactic Acid 2.10 H* (0.7-2.0) mmol/L Calcium 8.3 L (8.4-10.2) mg/dL Phosphorus (2.5-4.5) mg/dL Magnesium (1.7-2.3) mg/dL AST (5-40) units/L Alkaline Phosphatase 161 H (35-129) units/L Troponin T (0.00-0.029) ng/mL Albumin 1.7 L (3.9-5) g/dL Urine WBC (Auto) (0.0-6.0) /HPF Urine Creatinine (0.1-20.0) mg/dL Crossmatch 10/02/18 10/02/18 10/02/18 Range/Units 04:45 09:46 11:47 WBC (4.5-11.0) K/mm3 RBC (3.65-5.03) M/mm3 Hgb (11.8-15.2) gm/dl Hct (35.5-45.6) % MCH (28-32) pg MCHC (32-34) % RDW (13.2-15.2) % Plt Count (140-440) K/mm3 Seg Neuts % (Manual) (40.0-70.0) % Lymphocytes % (Manual) (13.4-35.0) % Seg Neutrophils # Man (1.8-7.7) K/mm3 Lymphocytes # (Manual) (1.2-5.4) K/mm3 POC ABG pH (7.35-7.45) POC ABG pO2 (80-105) Sodium (137-145) mmol/L Potassium (3.6-5.0) mmol/L Chloride (98-107) mmol/L Carbon Dioxide (22-30) mmol/L BUN (9-20) mg/dL Creatinine (0.8-1.5) mg/dL Glucose (75-100) mg/dL POC Glucose 112 H (70-105) Lactic Acid (0.7-2.0) mmol/L Calcium (8.4-10.2) mg/dL Phosphorus 5.00 H (2.5-4.5) mg/dL Magnesium (1.7-2.3) mg/dL AST (5-40) units/L Alkaline Phosphatase (35-129) units/L Troponin T (0.00-0.029) ng/mL Albumin (3.9-5) g/dL Urine WBC (Auto) (0.0-6.0) /HPF Urine Creatinine (0.1-20.0) mg/dL Crossmatch See Detail Assessment and Plan Cultures: Blood culture 10/01/2018 GPC in clusters 2 of 4. Assessment: 67 y/o male with hsitory of HTN, CVA, Obstructive Uropathy, Contracture, Multiple Decubitus Ulcers, [place], DM, OA, Seizure Disorder, COPD, Dementia, Cinthya lity, BPH, well known to ID due to multiple admissions from ducubitus ulcers infections, resident of care home, admitted on due to decreased responsiveness compared to baseline and hypotension SBP in 60's: 1) Severe Sepsis with septic shock: Present on admission, manifested by tachycardia, hypotension, leukocytosis, increased lactate, MÓNICA and AMS. Etiology most likely GPC bacteremia. 2) GPC bacteremia: source likely multiple decubitus or UTI. Blood culture 10/01/2018 GPC in clusters 2 of 4. 3) Recent septic shock due to polymicrobial bacteremia ESBL E coli, MDR Proteus, Strep and E faecalis on 07/29/2018 probably from multiple infected decubitus ulcers and less likely UTI. Repeat blood cultures 07/31/2018 showed same MDR E coli 1 of 4 bottles then 08/06/2018 blood cultures showed no growth. Patient did not respond to carbapenem and was placed on vabomere for 14 days. 4) Multiple infected decubitus ulcers: His prognosis has been poor and discussed previously with family hospice indication but they declined. His wounds are not curable considering his contractures, bed bound status and poor nutritional status. There was also suspicion of septic arthritis of left hip from decubitus ulcer. 5) Recurrent CAUTI 6) Acute encephalopathy 7) MÓNICA Recommendations: - follow-up blood cultures, urine culture - repeat blood cultures in 24 h - wound care consult - exchange bright - remove femoral TLC soon - continue meropenem and vancomycin Prognosis very poor and discussed previously with family hospice indication but they declined. Will follow. Penny Bernardo MD Infectious Diseases [employer] [facility] ([facility] M [phone] O [phone]
[2018-10-02] MEDS: PERCOCET 5/325 PO PRN (20:28)
[2018-10-03] MEDS: PERCOCET 5/325 PO PRN ×3 (04:10→22:51)
[2018-10-03 07:06] LABS: Basophils # (Auto) 0.1 K/mm3 (0.0-0.1); Basophils % (Auto) 0.3 % (0.0-1.8); Eosinophils # (Auto) 0.8 K/mm3 (0.0-0.4); Eosinophils % (Auto) 4.6 % (0.0-4.3); Hematocrit 24.1 % (35.5-45.6); Hemoglobin 7.6 gm/dl (11.8-15.2); Lymphocytes # (Auto) 0.9 K/mm3 (1.2-5.4); Lymphocytes % (Auto) 5.2 % (13.4-35.0); Mean Corpuscular HGB Conc 31 % (32-34); Mean Corpuscular Volume 86 fl (84-94); Monocytes # (Auto) 0.7 K/mm3 (0.0-0.8); Monocytes % (Auto) 4.2 % (0.0-7.3); Platelet Count 473 K/mm3 (140-440); Red Blood Count 2.81 M/mm3 (3.65-5.03); Red Cell Distribution Width 18.4 % (13.2-15.2)
[2018-10-03 07:30] LABS: Calcium 7.9 mg/dL (8.4-10.2)
--- NOTE | 2018-10-03 08:19 | Progress Note ---
Assessment and Plan Cultures: Blood culture 10/01/2018 Staph aureus 2 of 4. Assessment: 67 y/o male with hsitory of HTN, CVA, Obstructive Uropathy, Contracture, Multiple Decubitus Ulcers, [place], DM, OA, Seizure Disorder, COPD, Dementia, Debility, BPH, well known to ID due to multiple admissions from ducubitus ulcers infections, resident of [facility], admitted on due to decreased responsiveness compared to baseline and hypotension SBP in 60's: 1) Severe Sepsis with septic shock: improving, still on pressors. Etiology most likely Staph bacteremia. 2) Staph bacteremia: source likely multiple decubitus or UTI. Blood culture 10/01/2018 GPC in clusters 2 of 4. 3) Recent septic shock due to polymicrobial bacteremia ESBL E coli, MDR Proteus, Strep and E faecalis on 07/29/2018 probably from multiple infected decubitus ulcers and less likely UTI. Repeat blood cultures 07/31/2018 showed same MDR E coli 1 of 4 bottles then 08/06/2018 blood cultures showed no growth. Patient did not respond to carbapenem and was placed on vabomere for 14 days. 4) Multiple infected decubitus ulcers: currently active large left trochanteric with bone exposure and sacral with bone exposure. His prognosis has been poor and discussed previously with family hospice indication but they declined. His wounds are not curable considering his contractures, bed bound status and poor nutritional status. There was also suspicion of septic arthritis of left hip from decubitus ulcer. 5) Recurrent CAUTI 6) Acute encephalopathy 7) MÓNICA Recommendations: - repeat blood cultures today - TTE - wound care - exchange bright - continue meropenem and vancomycin D2 for now Prognosis very poor and discussed previously with family hospice indication but they declined. Will follow. Penny Bernardo MD Infectious Diseases [facility], [place] ([facility] M [phone] O [phone] Subjective Date of service: 10/03/18 Principal diagnosis: septic shock Interval history: Remains on pressors, more alert, talking, tmax 99.8 ROS limited confused Objective - Exam Narrative Exam: General appearance: Alert in NAD verbal Eyes: anicteric sclerae, moist conjunctivae; no lid-lag; PERRLA HENT: Atraumatic; oropharynx limited Neck: Trachea midline; supple, no thyromegaly or lymphadenopathy Lungs: scattered rhonchi CV: tachycardic Abdomen: Soft, non-tender;PEG Extremities: altaf contracted legs, multiple wounds covered Skin: multiple skin tears Psych: no agitated Neuro: alert non verbal no agitated WOUND CARE EVAL LEFT TROCHANTER STAGE 4 PRESSURE INJURY. LARGE AMOUNT OF YELLOW DRAINAGE. NO ODOR. WOUND PROBES TO A DEPTH OF 8CM. 6X6X8. THERE IS BONE EXPOSED. CLEANSED WITH WOUND CLEANSER. PACKED WITH 2 PIECES OF 4X4 ALGINATE. COVERED WITH 4X4 GAUZE, THEN TELFA. STAGE 4 SACRAL PRESSURE INJURY NOTED. PINK GRANULATION TISSUE. MODERATE AMOUNT OF YELLOW DRAINAGE. BONE IS EXPOSED. PERIWOUND SKIN IS INTACT. MEASURES [id number] CLEANSED WITH WOUND CLEANSER. ALGINATE APPLIED. COVERED WITH 4X4 GAUZE , THEN TELFA. - Constitutional Vitals: Vital Signs Temp Pulse Resp BP Pulse Ox 98.5 F 78 29 H 88/49 100 10/03/18 08:00 10/03/18 07:00 10/03/18 07:00 10/03/18 07:00 10/03/18 07:00 Temperature -Last 24 Hours Temperature 98.5 F Temperature 99.8 F Temperature 99.1 F Temperature 99.5 F Temperature 98 F Temperature 98.5 F Temperature 98.5 F Temperature 98.2 F Temperature 98 F Temperature 98.2 F Temperature 98 F Temperature 98.8 F Temperature 98.8 F - Labs CBC & Chem 7: 10/03/18 06:45 10/03/18 06:45 Labs: Abnormal lab results 10/02/18 10/02/18 10/02/18 Range/Units 04:45 09:46 11:47 WBC (4.5-11.0) K/mm3 RBC (3.65-5.03) M/mm3 Hgb (11.8-15.2) gm/dl Hct (35.5-45.6) % MCH (28-32) pg MCHC (32-34) % RDW (13.2-15.2) % Plt Count (140-440) K/mm3 Lymph % (Auto) (13.4-35.0) % Eos % (Auto) (0.0-4.3) % Lymph # (1.2-5.4) K/mm3 Eos # (0.0-0.4) K/mm3 Seg Neutrophils % (40.0-70.0) % Seg Neutrophils # (1.8-7.7) K/mm3 Sodium (137-145) mmol/L Chloride (98-107) mmol/L Carbon Dioxide (22-30) mmol/L BUN (9-20) mg/dL Creatinine (0.8-1.5) mg/dL Glucose (75-100) mg/dL POC Glucose 112 H (70-105) Calcium (8.4-10.2) mg/dL Phosphorus 5.00 H (2.5-4.5) mg/dL Crossmatch See Detail 10/03/18 10/03/18 10/03/18 Range/Units 00:03 06:06 06:45 WBC 17.3 H (4.5-11.0) K/mm3 RBC 2.81 L (3.65-5.03) M/mm3 Hgb 7.6 L (11.8-15.2) gm/dl Hct 24.1 L (35.5-45.6) % MCH 27 L (28-32) pg MCHC 31 L (32-34) % RDW 18.4 H (13.2-15.2) % Plt Count 473 H (140-440) K/mm3 Lymph % (Auto) 5.2 L (13.4-35.0) % Eos % (Auto) 4.6 H (0.0-4.3) % Lymph # 0.9 L (1.2-5.4) K/mm3 Eos # 0.8 H (0.0-0.4) K/mm3 Seg Neutrophils % 85.7 H (40.0-70.0) % Seg Neutrophils # 14.8 H (1.8-7.7) K/mm3 Sodium (137-145) mmol/L Chloride (98-107) mmol/L Carbon Dioxide (22-30) mmol/L BUN (9-20) mg/dL Creatinine (0.8-1.5) mg/dL Glucose (75-100) mg/dL POC Glucose 106 H 130 H (70-105) Calcium (8.4-10.2) mg/dL Phosphorus (2.5-4.5) mg/dL Crossmatch 10/03/18 Range/Units 06:45 WBC (4.5-11.0) K/mm3 RBC (3.65-5.03) M/mm3 Hgb (11.8-15.2) gm/dl Hct (35.5-45.6) % MCH (28-32) pg MCHC (32-34) % RDW (13.2-15.2) % Plt Count (140-440) K/mm3 Lymph % (Auto) (13.4-35.0) % Eos % (Auto) (0.0-4.3) % Lymph # (1.2-5.4) K/mm3 Eos # (0.0-0.4) K/mm3 Seg Neutrophils % (40.0-70.0) % Seg Neutrophils # (1.8-7.7) K/mm3 Sodium 148 H (137-145) mmol/L Chloride 112.1 H (98-107) mmol/L Carbon Dioxide 21 L (22-30) mmol/L BUN 79 H (9-20) mg/dL Creatinine 1.7 H (0.8-1.5) mg/dL Glucose 116 H (75-100) mg/dL POC Glucose (70-105) Calcium 7.9 L (8.4-10.2) mg/dL Phosphorus (2.5-4.5) mg/dL Crossmatch
[2018-10-03] MEDS: LEVOPHED 8 MG in NACL 0.9% 250ML 242 ML IV SCH (08:45)
--- NOTE | 2018-10-03 10:05 | Progress Note ---
Assessment and Plan 1. Acute kidney injury: Vasomotor / hemodynamic MÓNICA in the setting of hypotension, sepsis and volume depletion. Continue IV fluids. Renal function is improving. Monitor renal function. Renal prognosis is guarded. Avoid nephrotoxic agents. Meds dosage based on GFR. 2. FEN: Hypernatremia, 1/2 NS. Monitor lytes. 3. Sepsis with shock: On Levophed. 4. Anemia: PRBC. 5. Multiple decubitus ulcers. 6. Encephalopathy. Subjective Date of service: 10/03/18 Principal diagnosis: septic shock Interval history: Patient was seen and examined at the bedside. Objective - Vital Signs Vital signs: Vital Signs - 12hr 10/02/18 10/02/18 10/02/18 22:11 22:21 22:30 Temperature Pulse Rate 74 76 77 Pulse Rate [ From Monitor] Respiratory 27 H 27 H 26 H Rate Respiratory Rate [ Generalized] Blood Pressure 82/48 92/50 83/44 O2 Sat by Pulse 100 100 100 Oximetry 10/02/18 10/02/18 10/02/18 22:41 22:51 23:00 Temperature Pulse Rate 79 75 77 Pulse Rate [ From Monitor] Respiratory 28 H 25 H 25 H Rate Respiratory Rate [ Generalized] Blood Pressure 83/44 89/51 83/47 O2 Sat by Pulse 100 100 100 Oximetry 10/02/18 10/02/18 10/02/18 23:11 23:21 23:30 Temperature Pulse Rate 82 78 77 Pulse Rate [ From Monitor] Respiratory 30 H 28 H 19 Rate Respiratory Rate [ Generalized] Blood Pressure 83/47 85/53 81/46 O2 Sat by Pulse 100 100 100 Oximetry 10/02/18 10/02/18 10/03/18 23:41 23:51 00:00 Temperature 99.1 F Pulse Rate 79 80 84 Pulse Rate [ From Monitor] Respiratory 27 H 26 H 34 H Rate Respiratory Rate [ Generalized] Blood Pressure 81/46 85/47 87/52 O2 Sat by Pulse 100 100 99 Oximetry 10/03/18 10/03/18 10/03/18 00:11 00:21 00:31 Temperature Pulse Rate 81 84 84 Pulse Rate [ From Monitor] Respiratory 10 L 41 H 36 H Rate Respiratory Rate [ Generalized] Blood Pressure 85/47 85/47 220/122 O2 Sat by Pulse 98 92 94 Oximetry 10/03/18 10/03/18 10/03/18 00:41 00:51 01:01 Temperature Pulse Rate 85 85 84 Pulse Rate [ From Monitor] Respiratory 30 H 33 H 34 H Rate Respiratory Rate [ Generalized] Blood Pressure 87/52 245/58 245/58 O2 Sat by Pulse 94 95 97 Oximetry 10/03/18 10/03/18 10/03/18 01:11 01:21 01:30 Temperature Pulse Rate 85 84 85 Pulse Rate [ From Monitor] Respiratory 32 H 33 H 31 H Rate Respiratory Rate [ Generalized] Blood Pressure 245/58 87/61 94/60 O2 Sat by Pulse 97 98 99 Oximetry 10/03/18 10/03/18 10/03/18 01:41 01:50 02:00 Temperature Pulse Rate 84 85 83 Pulse Rate [ From Monitor] Respiratory 33 H 34 H 41 H Rate Respiratory Rate [ Generalized] Blood Pressure 87/61 99/63 100/64 O2 Sat by Pulse 100 100 100 Oximetry 10/03/18 10/03/18 10/03/18 02:11 02:21 02:30 Temperature Pulse Rate 83 83 85 Pulse Rate [ From Monitor] Respiratory 50 H 49 H 45 H Rate Respiratory Rate [ Generalized] Blood Pressure 99/63 101/65 98/70 O2 Sat by Pulse 100 100 99 Oximetry 10/03/18 10/03/18 10/03/18 02:41 02:51 03:00 Temperature Pulse Rate 86 87 85 Pulse Rate [ From Monitor] Respiratory 49 H 37 H 48 H Rate Respiratory Rate [ Generalized] Blood Pressure 101/65 107/69 105/66 O2 Sat by Pulse 100 99 100 Oximetry 10/03/18 10/03/18 10/03/18 03:11 03:21 03:30 Temperature Pulse Rate 88 87 85 Pulse Rate [ From Monitor] Respiratory 48 H 47 H 41 H Rate Respiratory Rate [ Generalized] Blood Pressure 107/69 103/66 107/68 O2 Sat by Pulse 99 99 99 Oximetry 10/03/18 10/03/18 10/03/18 03:41 03:50 04:00 Temperature 99.8 F H Pulse Rate 87 88 88 Pulse Rate [ From Monitor] Respiratory 52 H 45 H 43 H Rate Respiratory Rate [ Generalized] Blood Pressure 103/66 108/68 106/68 O2 Sat by Pulse 99 100 99 Oximetry 10/03/18 10/03/18 10/03/18 04:10 04:11 04:21 Temperature Pulse Rate 89 88 Pulse Rate [ From Monitor] Respiratory 47 H 44 H 35 H Rate Respiratory Rate [ Generalized] Blood Pressure 106/68 106/70 O2 Sat by Pulse 100 100 Oximetry 10/03/18 10/03/18 10/03/18 04:30 04:41 04:51 Temperature Pulse Rate 88 87 88 Pulse Rate [ From Monitor] Respiratory 37 H 55 H 40 H Rate Respiratory Rate [ Generalized] Blood Pressure 105/68 105/68 104/67 O2 Sat by Pulse 100 93 94 Oximetry 10/03/18 10/03/18 10/03/18 05:00 05:11 05:21 Temperature Pulse Rate 88 90 90 Pulse Rate [ From Monitor] Respiratory 32 H 35 H 33 H Rate Respiratory Rate [ Generalized] Blood Pressure 100/65 100/65 101/64 O2 Sat by Pulse 93 94 96 Oximetry 10/03/18 10/03/18 10/03/18 05:30 05:41 05:50 Temperature Pulse Rate 89 88 88 Pulse Rate [ From Monitor] Respiratory 33 H 36 H 38 H Rate Respiratory Rate [ Generalized] Blood Pressure 97/66 97/66 100/69 O2 Sat by Pulse 96 97 96 Oximetry 10/03/18 10/03/18 10/03/18 06:01 06:11 06:21 Temperature Pulse Rate 81 85 86 Pulse Rate [ From Monitor] Respiratory 34 H 33 H 28 H Rate Respiratory Rate [ Generalized] Blood Pressure 116/68 116/68 116/68 O2 Sat by Pulse 98 89 95 Oximetry 10/03/18 10/03/18 10/03/18 06:31 06:41 06:51 Temperature Pulse Rate 92 H 86 84 Pulse Rate [ From Monitor] Respiratory 16 38 H 33 H Rate Respiratory Rate [ Generalized] Blood Pressure 91/70 91/70 91/70 O2 Sat by Pulse 92 91 98 Oximetry 10/03/18 10/03/18 10/03/18 07:00 07:11 07:20 Temperature Pulse Rate 78 80 76 Pulse Rate [ From Monitor] Respiratory 29 H 30 H 26 H Rate Respiratory Rate [ Generalized] Blood Pressure 88/49 88/49 93/48 O2 Sat by Pulse 100 99 100 Oximetry 10/03/18 10/03/18 10/03/18 07:30 07:41 07:51 Temperature Pulse Rate 74 73 73 Pulse Rate [ From Monitor] Respiratory 26 H 22 25 H Rate Respiratory Rate [ Generalized] Blood Pressure 91/48 91/48 91/48 O2 Sat by Pulse 100 100 100 Oximetry 10/03/18 10/03/18 10/03/18 08:00 08:11 08:21 Temperature 98.5 F Pulse Rate 73 71 70 Pulse Rate [ 80 From Monitor] Respiratory 23 26 H 26 H Rate Respiratory 23 Rate [ Generalized] Blood Pressure 100/49 100/49 82/47 O2 Sat by Pulse 100 100 100 Oximetry 10/03/18 10/03/18 10/03/18 08:31 08:41 08:51 Temperature Pulse Rate 72 73 78 Pulse Rate [ From Monitor] Respiratory 28 H 25 H 26 H Rate Respiratory Rate [ Generalized] Blood Pressure 91/48 91/48 91/48 O2 Sat by Pulse 100 100 100 Oximetry 10/03/18 10/03/18 10/03/18 09:00 09:11 09:16 Temperature Pulse Rate 78 76 Pulse Rate [ From Monitor] Respiratory 27 H 26 H Rate Respiratory Rate [ Generalized] Blood Pressure 104/58 104/58 O2 Sat by Pulse 100 100 100 Oximetry 10/03/18 10/03/18 10/03/18 09:21 09:30 09:41 Temperature Pulse Rate 74 75 75 Pulse Rate [ From Monitor] Respiratory 30 H 28 H 24 Rate Respiratory Rate [ Generalized] Blood Pressure 111/64 101/61 101/61 O2 Sat by Pulse 100 100 100 Oximetry - General Appearance General appearance: well-developed, appears stated age, other (not in distress, emaciated) EENT: ATNC Neck: other (Tarchea midline) Respiratory: Present: Clear to Ascultation Cardiology: S1S2, no murmurs Gastrointestinal: normoactive bowel sounds, other (PEG tube noted, Chaudhary catheter) Integumentary: ulcer, decubiti Neurologic: other (alert,not following any command, non-verbal) Musculoskeletal: other (multiple contractures noted) - Lab 10/03/18 06:45 10/03/18 06:45 Most recent lab results Calcium 7.9 mg/dL (8.4-10.2) L 10/03/18 06:45 Phosphorus 5.00 mg/dL (2.5-4.5) H 10/02/18 04:45 Magnesium 3.30 mg/dL (1.7-2.3) H 10/01/18 18:23 74.7 mg/dL (0.1-20.0) H 10/02/18 04:45 21 mmol/L 10/02/18 04:45 Medications & Allergies - Medications Allergies/Adverse Reactions: Allergies lisinopril Allergy (Verified 10/01/18 15:17) Unknown tramadol Allergy (Verified 07/29/18 18:39) Unknown Home Medications: Home Medications Medication Instructions Recorded Confirmed Last Taken Type Multivit-Min/Iron Fum/Folic AC 1 each PO DAILY 03/24/18 10/03/18 Unknown History [Ehcde-Gpcwofe-Hgapyyij Tablet] Acetaminophen 650 mg NGTUBE Q6H PRN 07/30/18 10/03/18 Unknown History AtorvaSTATin [Lipitor] 40 mg NGTUBE QHS 07/30/18 10/03/18 Unknown History Dutasteride 0.5 mg NGTUBE QAM 07/30/18 10/03/18 Unknown History Ipratropium/Albuterol Sulfate 1 ampul IH BID 07/30/18 10/03/18 Unknown History [DUONEB *Not for PRN Use*] Lisinopril [Zestril TAB] 40 mg PO QDAY 07/30/18 10/03/18 Unknown History Tamsulosin [Flomax] 0.4 mg PO QDAY 07/30/18 10/03/18 Unknown History Vit C/Ascorbate Calcium,Sodium 500 mg NGTUBE BID 07/30/18 10/03/18 Unknown History [Vitamin C 500 mg/15 ml Liquid] Zinc Sulfate 220 mg NGTUBE QDAY 07/30/18 10/03/18 Unknown History levETIRAcetam [Keppra INJ] 500 mg PO Q12H 07/30/18 10/03/18 Unknown History Carvedilol [Coreg] 3.125 mg PO BID #60 tablet 08/23/18 10/03/18 Unknown Rx Furosemide [Lasix] 20 mg PO QDAY #30 tablet 08/23/18 10/03/18 Unknown Rx Oxycodone HCl/Acetaminophen 1 each PO Q8HR PRN #14 tablet 08/23/18 10/03/18 Unknown Rx [Percocet 7.5/325 mg] Phosphorus #1 [K-Phos Neutral] 250 mg PO QID #30 tablet 08/23/18 10/03/18 Unknown Rx hydroCHLOROthiazide [HCTZ] 12.5 mg PO QDAY #30 tablet 08/23/18 10/03/18 Unknown Rx Active Medications: Generic Name Dose Route Start Last Admin Trade Name Freq PRN Reason Stop Dose Admin Acetaminophen 650 mg 10/01/18 15:32 Tylenol FEEDTUBE Q6H PRN Pain, Moderate (4-6) Albuterol 2.5 mg 10/01/18 17:40 Proventil IH Q3HRT PRN Shortness Of Breath Lipase/Protease/Amylase 1 each 10/02/18 10:[address] 10,500 Unit FEEDTUBE PRN PRN For Clogged Feeding Tube Ascorbic Acid 500 mg 10/01/18 22:00 10/02/18 21:44 Vitamin C FEEDTUBE 500 mg BID NORA Administration Atorvastatin Calcium 40 mg 10/01/18 22:00 10/02/18 21:44 Lipitor FEEDTUBE 40 mg QHS NORA Administration Heparin Sodium (Porcine) 5,000 unit 10/01/18 22:00 10/02/18 21:44 Heparin SUB-Q 5,000 unit Q12HR NORA Administration Meropenem 500 mg in 50 mls @ 50 mls/hr 10/02/18 11:00 10/02/18 11:59 Merrem/Ns 500 Mg/50 Ml IV 50 mls/hr Q12HR NORA Administration Vasopressin 20 unit/ Sodium 101 mls @ 9.09 mls/hr 10/02/18 10:00 Chloride IV TITR NORA Protocol 0.03 UNITS/MIN Vancomycin HCl 1 gm in 250 mls @ 167.007 mls/hr 10/02/18 11:00 10/02/18 11:58 Vancomycin/Ns 1 Gm/250 Ml IV 167.007 mls/hr Q24HR NORA Administration Norepinephrine 8 mg/ Sodium 250 mls @ 3.75 mls/hr 10/02/18 11:00 10/03/18 09:00 Chloride IV 6 mcg/min TITR NORA 11.25 mls/hr Titration Protocol 2 MCG/MIN Potassium Chloride/Dextrose/Sod Cl 30 meq in 1,000 mls @ 50 mls/hr 10/02/18 11:00 10/02/18 12:00 D5w/0.45% Nacl/Kcl 30 Meq IV 50 mls/hr DIRECT NORA Administration Levetiracetam 500 mg 10/01/18 22:00 10/02/18 21:44 Keppra PO 500 mg BID NORA Administration Multivitamins 1 each 10/02/18 10:00 10/02/18 10:01 Theragran Tab PO 1 each DAILY NORA Administration Oxycodone/Acetaminophen 1 tab 10/02/18 20:16 10/03/18 04:10 Percocet 5/325 PO 1 tab Q4H PRN Administration Pain, Moderate (4-6) Simple Syrup 15 ml 10/02/18 10:35 Simple Syrup FEEDTUBE PRN PRN Hypoglycemia Simple Syrup 30 ml 10/02/18 10:35 Simple Syrup FEEDTUBE PRN PRN Hypoglycemia Sodium Bicarbonate 325 mg 10/02/18 10:35 Sodium Bicarbonate FEEDTUBE PRN PRN For Clogged Feeding Tube Sodium Chloride 10 ml 10/01/18 22:00 10/02/18 10:34 Sodium Chloride Flush Syringe 10 Ml IV 10 ml BID NORA Administration Sodium Chloride 10 ml 10/01/18 17:40 Sodium Chloride Flush Syringe 10 Ml IV PRN PRN LINE FLUSH Zinc Sulfate 220 mg 10/02/18 10:00 10/02/18 10:05 Zinc Sulfate PO 220 mg QDAY NORA Administration
[2018-10-03] MEDS: MERREM/NS 500 MG/50 ML 500 MG/50 ML BAG IV SCH ×3 (10:50→22:51)
[2018-10-03] MEDS: KEPPRA PO SCH ×2 (10:54→22:50)
[2018-10-03] MEDS: HEPARIN SUB-Q SCH ×2 (10:54→22:50)
[2018-10-03] MEDS: THERAGRAN Tab PO SCH (10:54)
[2018-10-03] MEDS: ZINC SULFATE PO SCH (10:55)
[2018-10-03] MEDS: SODIUM CHLORIDE FLUSH SYRINGE 10 ML IV SCH (10:55)
[2018-10-03] MEDS: VITAMIN C FEEDTUBE SCH ×2 (10:56→22:50)
[2018-10-03] MEDS: VANCOMYCIN/NS 1 GM/250 ML 1 GM/250 ML BAG IV SCH (11:05)
[2018-10-03] MEDS: LACTATED RINGERS 1,000 ML IV SCH ×2 (13:30→18:14)
[2018-10-03] MEDS: PEPCID PO SCH (13:32)
--- NOTE | 2018-10-03 13:43 | Progress Note ---
Assessment and Plan Severe Sepsis with septic shock GPC bacteremia Acute encephalopathy Multiple decubitus ulcers Acute metabolic encephaloapthy Hypernatremia Recurrent CAUTI Lactic acidosis Acute renal failure- prerenal/vasomotor nephropathy - continue volume resuscitation but with isotonic fluids; free water flushes for hypernatremia (LR X 2 liters) - get CRP and lactate levels prn to aid clinical decision making - continue to monitor renal indices closely - continue to avoid nephrotoxic agents, adjust all medications for CrCL - continue strict intake and output monitoring - nephrology consult per attending (appears pre-renal component) - continue to wean vasopressor support for MAP < 65 - continue to wean supplemental oxygen for O2 sats>90% - VTE prophylaxis - Antibiotics per ID. Had detailed discussions with ID, patient has history of MDRO with very resistant organisms - Nutrition consulted for tube feedings - continue tube feedings with aspiration precautions - continue mobility protocol as tolerated for pressure ulcer prophylaxis - wound care per WCT - continue accuchecks with glycemic control per SSI for target glucose of 140- 180 mg/dL - continue bronchodilators with pulmonary hygiene per RT - Discontinue femoral CVC as soon as feasible (contracted; technically difficult for subclavian or IJ; PICC also challenging and bacteremic now - Influenza and pneumonia vaccination per protocol ..care plan discussed at length with RN/RT at the bedside ...care plan discussed in detail in ICU-IDT rounds PROGNOSIS: GUARDED/POOR CONDITION: CRITICAL CODE STATUS: FULL CODE The high probability of a clinically significant, sudden or life-threatening deterioration of the [cardiovascular, neurology, renal] system(s) required my full and direct attention, intervention and personal management. The aggregate critical care time was [35] minutes without overlap. Time includes spent on; [x] Data Review and interpretation [x] Patient assessment and monitoring of vital signs [x] Documentation [x] Medication orders and management Subjective Date of service: 10/03/18 Principal diagnosis: Septic shock; Ac encephalopathy; Multiple decubitus ulcers; Ac renal failur Interval history: Patient is seen today for: Severe Sepsis with septic shock; GPC bacteremia; Acute encephalopathy; Multiple decubitus ulcers; Acute metabolic encephaloapthy; Hypernatremia; Recurrent CAUTI; Lactic acidosis; Acute renal failure- prerenal/vasomotor nephropathy Seen and examined at bedside; 24hour events reviewed; nursing and respiratory care staff consulted; no adverse overnight events reported to me; resting peacefully in bed; denies acute chest pains; remains on levophed at 6 mics/min; no N/V/F/C; no gross bleeding Objective Vital Signs - 12hr 10/03/18 10/03/18 10/03/18 01:41 01:50 02:00 Temperature Pulse Rate 84 85 83 Pulse Rate [ From Monitor] Respiratory 33 H 34 H 41 H Rate Respiratory Rate [ Generalized] Blood Pressure 87/61 99/63 100/64 O2 Sat by Pulse 100 100 100 Oximetry 10/03/18 10/03/18 10/03/18 02:11 02:21 02:30 Temperature Pulse Rate 83 83 85 Pulse Rate [ From Monitor] Respiratory 50 H 49 H 45 H Rate Respiratory Rate [ Generalized] Blood Pressure 99/63 101/65 98/70 O2 Sat by Pulse 100 100 99 Oximetry 10/03/18 10/03/18 10/03/18 02:41 02:51 03:00 Temperature Pulse Rate 86 87 85 Pulse Rate [ From Monitor] Respiratory 49 H 37 H 48 H Rate Respiratory Rate [ Generalized] Blood Pressure 101/65 107/69 105/66 O2 Sat by Pulse 100 99 100 Oximetry 10/03/18 10/03/18 10/03/18 03:11 03:21 03:30 Temperature Pulse Rate 88 87 85 Pulse Rate [ From Monitor] Respiratory 48 H 47 H 41 H Rate Respiratory Rate [ Generalized] Blood Pressure 107/69 103/66 107/68 O2 Sat by Pulse 99 99 99 Oximetry 10/03/18 10/03/18 10/03/18 03:41 03:50 04:00 Temperature 99.8 F H Pulse Rate 87 88 88 Pulse Rate [ From Monitor] Respiratory 52 H 45 H 43 H Rate Respiratory Rate [ Generalized] Blood Pressure 103/66 108/68 106/68 O2 Sat by Pulse 99 100 99 Oximetry 10/03/18 10/03/18 10/03/18 04:10 04:11 04:21 Temperature Pulse Rate 89 88 Pulse Rate [ From Monitor] Respiratory 47 H 44 H 35 H Rate Respiratory Rate [ Generalized] Blood Pressure 106/68 106/70 O2 Sat by Pulse 100 100 Oximetry 10/03/18 10/03/18 10/03/18 04:30 04:41 04:51 Temperature Pulse Rate 88 87 88 Pulse Rate [ From Monitor] Respiratory 37 H 55 H 40 H Rate Respiratory Rate [ Generalized] Blood Pressure 105/68 105/68 104/67 O2 Sat by Pulse 100 93 94 Oximetry 10/03/18 10/03/18 10/03/18 05:00 05:11 05:21 Temperature Pulse Rate 88 90 90 Pulse Rate [ From Monitor] Respiratory 32 H 35 H 33 H Rate Respiratory Rate [ Generalized] Blood Pressure 100/65 100/65 101/64 O2 Sat by Pulse 93 94 96 Oximetry 10/03/18 10/03/18 10/03/18 05:30 05:41 05:50 Temperature Pulse Rate 89 88 88 Pulse Rate [ From Monitor] Respiratory 33 H 36 H 38 H Rate Respiratory Rate [ Generalized] Blood Pressure 97/66 97/66 100/69 O2 Sat by Pulse 96 97 96 Oximetry 10/03/18 10/03/18 10/03/18 06:01 06:11 06:21 Temperature Pulse Rate 81 85 86 Pulse Rate [ From Monitor] Respiratory 34 H 33 H 28 H Rate Respiratory Rate [ Generalized] Blood Pressure 116/68 116/68 116/68 O2 Sat by Pulse 98 89 95 Oximetry 10/03/18 10/03/18 10/03/18 06:31 06:41 06:51 Temperature Pulse Rate 92 H 86 84 Pulse Rate [ From Monitor] Respiratory 16 38 H 33 H Rate Respiratory Rate [ Generalized] Blood Pressure 91/70 91/70 91/70 O2 Sat by Pulse 92 91 98 Oximetry 10/03/18 10/03/18 10/03/18 07:00 07:11 07:20 Temperature Pulse Rate 78 80 76 Pulse Rate [ From Monitor] Respiratory 29 H 30 H 26 H Rate Respiratory Rate [ Generalized] Blood Pressure 88/49 88/49 93/48 O2 Sat by Pulse 100 99 100 Oximetry 10/03/18 10/03/18 10/03/18 07:30 07:41 07:51 Temperature Pulse Rate 74 73 73 Pulse Rate [ From Monitor] Respiratory 26 H 22 25 H Rate Respiratory Rate [ Generalized] Blood Pressure 91/48 91/48 91/48 O2 Sat by Pulse 100 100 100 Oximetry 10/03/18 10/03/18 10/03/18 08:00 08:11 08:21 Temperature 98.5 F Pulse Rate 73 71 70 Pulse Rate [ 80 From Monitor] Respiratory 23 26 H 26 H Rate Respiratory 23 Rate [ Generalized] Blood Pressure 100/49 100/49 82/47 O2 Sat by Pulse 100 100 100 Oximetry 10/03/18 10/03/18 10/03/18 08:31 08:41 08:51 Temperature Pulse Rate 72 73 78 Pulse Rate [ From Monitor] Respiratory 28 H 25 H 26 H Rate Respiratory Rate [ Generalized] Blood Pressure 91/48 91/48 91/48 O2 Sat by Pulse 100 100 100 Oximetry 10/03/18 10/03/18 10/03/18 09:00 09:11 09:16 Temperature Pulse Rate 78 76 Pulse Rate [ From Monitor] Respiratory 27 H 26 H Rate Respiratory Rate [ Generalized] Blood Pressure 104/58 104/58 O2 Sat by Pulse 100 100 100 Oximetry 10/03/18 10/03/18 10/03/18 09:21 09:30 09:41 Temperature Pulse Rate 74 75 75 Pulse Rate [ From Monitor] Respiratory 30 H 28 H 24 Rate Respiratory Rate [ Generalized] Blood Pressure 111/64 101/61 101/61 O2 Sat by Pulse 100 100 100 Oximetry 10/03/18 12:00 Temperature 99.0 F Pulse Rate Pulse Rate [ From Monitor] Respiratory Rate Respiratory Rate [ Generalized] Blood Pressure O2 Sat by Pulse Oximetry CBC and BMP: 10/04/18 07:00 10/04/18 07:00 ABG, PT/INR, D-dimer: ABG POC ABG pH 7.480 (7.35-7.45) H 10/01/18 18:12 POC ABG pO2 64 (80-105) L 10/01/18 18:12 POC ABG HCO3 21.0 (22-26 mml/L) 10/01/18 18:12 POC ABG Total CO2 22 (23-27mmol/L) 10/01/18 18:12 POC ABG O2 Sat 94 10/01/18 18:12 Abnormal lab findings: Abnormal Labs 10/01/18 10/01/18 10/01/18 14:29 14:29 15:13 WBC 18.5 H RBC 2.68 L Hgb 7.3 L Hct 23.1 L MCH 27 L MCHC 31 L RDW 19.3 H Plt Count 522 H Lymph % (Auto) 6.7 L Eos % (Auto) Lymph # [place] # 1.2 H Eos # Seg Neutrophils % 85.0 H Seg Neuts % (Manual) Lymphocytes % (Manual) Seg Neutrophils # 15.7 H Seg Neutrophils # Man Lymphocytes # (Manual) POC ABG pH POC ABG pO2 Sodium 148 H Potassium 3.3 L Chloride Carbon Dioxide BUN 98 H Creatinine 2.0 H Glucose 142 H POC Glucose Lactic Acid Calcium Phosphorus Magnesium AST Alkaline Phosphatase Troponin T 0.361 H* Albumin Cholesterol 36 L LDL Cholesterol Direct 6 L HDL Cholesterol 21 L Urine WBC (Auto) > 182.0 H Urine Creatinine Crossmatch 10/01/18 10/01/18 10/01/18 15:15 15:15 17:03 WBC RBC Hgb Hct MCH MCHC RDW Plt Count Lymph % (Auto) Eos % (Auto) Lymph # [place] # Eos # Seg Neutrophils % Seg Neuts % (Manual) Lymphocytes % (Manual) Seg Neutrophils # Seg Neutrophils # Man Lymphocytes # (Manual) POC ABG pH POC ABG pO2 Sodium 150 H Potassium Chloride Carbon Dioxide BUN 94 H Creatinine 2.1 H Glucose 132 H POC Glucose Lactic Acid 2.60 H* 2.20 H* Calcium 7.8 L Phosphorus Magnesium AST 47 H Alkaline Phosphatase 179 H Troponin T Albumin 2.1 L Cholesterol LDL Cholesterol Direct HDL Cholesterol Urine WBC (Auto) Urine Creatinine Crossmatch 10/01/18 10/01/18 10/01/18 18:12 18:23 18:23 WBC RBC Hgb Hct MCH MCHC RDW Plt Count Lymph % (Auto) Eos % (Auto) Lymph # [place] # Eos # Seg Neutrophils % Seg Neuts % (Manual) Lymphocytes % (Manual) Seg Neutrophils # Seg Neutrophils # Man Lymphocytes # (Manual) POC ABG pH 7.480 H POC ABG pO2 64 L Sodium Potassium Chloride Carbon Dioxide BUN Creatinine Glucose POC Glucose Lactic Acid Calcium Phosphorus Magnesium 3.30 H AST Alkaline Phosphatase Troponin T 0.378 H* Albumin Cholesterol LDL Cholesterol Direct HDL Cholesterol Urine WBC (Auto) Urine Creatinine Crossmatch 10/01/18 10/01/18 10/01/18 18:48 21:20 23:48 WBC RBC Hgb Hct MCH MCHC RDW Plt Count Lymph % (Auto) Eos % (Auto) Lymph # [place] # Eos # Seg Neutrophils % Seg Neuts % (Manual) Lymphocytes % (Manual) Seg Neutrophils # Seg Neutrophils # Man Lymphocytes # (Manual) POC ABG pH POC ABG pO2 Sodium Potassium Chloride Carbon Dioxide BUN Creatinine Glucose POC Glucose Lactic Acid 2.30 H* 2.70 H* Calcium Phosphorus Magnesium AST Alkaline Phosphatase Troponin T 0.336 H* Albumin Cholesterol LDL Cholesterol Direct HDL Cholesterol Urine WBC (Auto) Urine Creatinine Crossmatch 10/01/18 10/02/18 10/02/18 23:48 04:45 04:45 WBC 18.3 H RBC 2.40 L Hgb 6.4 L Hct 20.4 L MCH 27 L MCHC 31 L RDW 19.1 H Plt Count 462 H Lymph % (Auto) Eos % (Auto) Lymph # [place] # Eos # Seg Neutrophils % Seg Neuts % (Manual) 78.0 H Lymphocytes % (Manual) 5.0 L Seg Neutrophils # Seg Neutrophils # Man 14.3 H Lymphocytes # (Manual) 0.9 L POC ABG pH POC ABG pO2 Sodium Potassium Chloride Carbon Dioxide BUN Creatinine Glucose POC Glucose Lactic Acid 2.50 H* Calcium Phosphorus Magnesium AST Alkaline Phosphatase Troponin T Albumin Cholesterol LDL Cholesterol Direct HDL Cholesterol Urine WBC (Auto) Urine Creatinine 74.7 H Crossmatch 10/02/18 10/02/18 10/02/18 04:45 04:45 04:45 WBC RBC Hgb Hct MCH MCHC RDW Plt Count Lymph % (Auto) Eos % (Auto) Lymph # [place] # Eos # Seg Neutrophils % Seg Neuts % (Manual) Lymphocytes % (Manual) Seg Neutrophils # Seg Neutrophils # Man Lymphocytes # (Manual) POC ABG pH POC ABG pO2 Sodium 148 H Potassium 3.1 L Chloride 108.6 H Carbon Dioxide 21 L BUN 89 H Creatinine 1.8 H Glucose POC Glucose Lactic Acid 2.10 H* Calcium 8.3 L Phosphorus 5.00 H Magnesium AST Alkaline Phosphatase 161 H Troponin T Albumin 1.7 L Cholesterol LDL Cholesterol Direct HDL Cholesterol Urine WBC (Auto) Urine Creatinine Crossmatch 10/02/18 10/02/18 10/03/18 09:46 11:47 00:03 WBC RBC Hgb Hct MCH MCHC RDW Plt Count Lymph % (Auto) Eos % (Auto) Lymph # [place] # Eos # Seg Neutrophils % Seg Neuts % (Manual) Lymphocytes % (Manual) Seg Neutrophils # Seg Neutrophils # Man Lymphocytes # (Manual) POC ABG pH POC ABG pO2 Sodium Potassium Chloride Carbon Dioxide BUN Creatinine Glucose POC Glucose 112 H 106 H Lactic Acid Calcium Phosphorus Magnesium AST Alkaline Phosphatase Troponin T Albumin Cholesterol LDL Cholesterol Direct HDL Cholesterol Urine WBC (Auto) Urine Creatinine Crossmatch See Detail 0510/03/18 10/03/18 06:06 06:45 06:45 WBC 17.3 H RBC 2.81 L Hgb 7.6 L Hct 24.1 L MCH 27 L MCHC 31 L RDW 18.4 H Plt Count 473 H Lymph % (Auto) 5.2 L Eos % (Auto) 4.6 H Lymph # 0.9 L [place] # Eos # 0.8 H Seg Neutrophils % 85.7 H Seg Neuts % (Manual) Lymphocytes % (Manual) Seg Neutrophils # 14.8 H Seg Neutrophils # Man Lymphocytes # (Manual) POC ABG pH POC ABG pO2 Sodium 148 H Potassium Chloride 112.1 H Carbon Dioxide 21 L BUN 79 H Creatinine 1.7 H Glucose 116 H POC Glucose 130 H Lactic Acid Calcium 7.9 L Phosphorus Magnesium AST Alkaline Phosphatase Troponin T Albumin Cholesterol LDL Cholesterol Direct HDL Cholesterol Urine WBC (Auto) Urine Creatinine Crossmatch
--- NOTE | 2018-10-03 14:41 | Progress Note ---
Assessment and Plan / Severe sepsis, POA due to bacteremia, UTI and RUL PNA continue Sepsis Protocol: IV antibiotic therapy, IVF resuscitation therapy, follow Blood cultures, IV pressors as clinically indicated to maintain MAP above 60, serial lactic acid. Pt admitted to ICU. Pulmonary consulted in ED. The high probability of a clinically significant, sudden or life threatening deterioration of the [renal, cardiac, pulmonary,] system(s) required my full and direct attention, intervention and personal management. The aggregate critical care time was [65] minutes. This time is in addition to time spent performing reported procedures but includes the following: [x] Data Review and interpretation [x] Patient assessment and monitoring of vital signs [x] Documentation [x] Medication orders and management /GPC bacteremia - cont vanc, follow final cx, 2d echo /Anemia, s/p one unit blood transfusion, likely AOCD - need to r/o GI bleed / MÓNICA with vasomotor nephropathy IVF resuscitation therapy, monitor uop q shift, repeat bmp in am, nephrology consulted in ED. /Right upper lobe Pneumonia, suspect aspiration On Pneumonia Protocol: IV antibiotic therapy, supplemental oxygen, pulse oximetry, Sputum culture if sample available / Elevated troponin Likely due to sepsis with low blood pressure and renal failure Monitor with Serial cardiac enzymes, Cardiology consulted in ED, No EKG changes, supportive care, / UTI (lower urinary tract infection) IV antibiotic therapy, IV fluids, follow culture /Acute hypoxic Respiratory failure Likely due to underlying pneumonia Supplemental oxygen, nebulizer therapy, ABG, NIPPV as clinically indicated, pulse oximetry, /Moderate to severe protein calorie malnutrition - BMI 17.8, albumin 1.7 - consulted dietary, continue to feeding for now hypernatremia, on hypotonic saline Hypokalemia, repleted / DVT prophylaxis SCD to BLE while in bed, prophylactic heparin Brief History: 67 YO Male [facility] Facility Resident as [facility] with HTN, CVA, Obstructive Uropathy, Contracture, Decubitus Ulcers, OH, DM, OA, Seizure Disorder, COPD, Dementia, Debility, BPH presented to ED for evaluation, As per staff, the patient was found to have decreased responsiveness compared to baseline. Pt seen and evaluated in ED and found to have Sepsis secondary to UTI with concomitant RUL Pneumonia with a QSofa score of 8( GCS:3, MAP less than 70, Creatnine:2.1), Encephalopathy, and symptomatic anemia. Pt admitted to [facility] and initiated on Sepsis protocol. Radiological data: Chest x-ray: Limited exam. Mild cardiomegaly. The lungs are grossly clear although there is poor visualization of the right upper lobe. Hospitalist Physical exam: GENERAL: Elderly male lying on bed appeared to be in no discomfort. It appears to be very lethargic and aphasic HEENT: Normocephalic. Atraumatic. No conjunctival congestion or icterus. Patient has moist mucous membranes. NECK: Supple. Trachea midline. CHEST/LUNGS: Clear to auscultated bilaterally, breathing nonlabored. No wheezes crackles or rhonchi. HEART/CARDIOVASCULAR: Regular in rate and rhythm. S1 and S2 positive. ABDOMEN: Abdomen is soft, nontender. Patient has normal bowel sounds. SKIN: There is no rash. Warm and dry. NEURO: Does not Follow command. MUSCULOSKELETAL: No joint effusion, generalized weakness unable to move extremities EXTRIMITY: No edema, no cyanosis or clubbing. PSYCH: Unable to assess. Subjective Date of service: 10/03/18 Principal diagnosis: Septic shock; Ac encephalopathy; Multiple decubitus ulcers; Ac renal failur Interval history: Patient seen and examined. Medical records and medication list reviewed. No acute event overnight noted by the RN. Patient unable to provide any history with severe dementia Patient on nasal cannula and on levophed, on tube feeding Discussed plan of care at bedside with RN. Objective - Constitutional Vitals: Vital Signs - 12hr 10/03/18 10/03/18 10/03/18 02:41 02:51 03:00 Temperature Pulse Rate 86 87 85 Pulse Rate [ From Monitor] Respiratory 49 H 37 H 48 H Rate Respiratory Rate [ Generalized] Blood Pressure 101/65 107/69 105/66 O2 Sat by Pulse 100 99 100 Oximetry 10/03/18 10/03/18 10/03/18 03:11 03:21 03:30 Temperature Pulse Rate 88 87 85 Pulse Rate [ From Monitor] Respiratory 48 H 47 H 41 H Rate Respiratory Rate [ Generalized] Blood Pressure 107/69 103/66 107/68 O2 Sat by Pulse 99 99 99 Oximetry 10/03/18 10/03/18 10/03/18 03:41 03:50 04:00 Temperature 99.8 F H Pulse Rate 87 88 88 Pulse Rate [ From Monitor] Respiratory 52 H 45 H 43 H Rate Respiratory Rate [ Generalized] Blood Pressure 103/66 108/68 106/68 O2 Sat by Pulse 99 100 99 Oximetry 10/03/18 10/03/18 10/03/18 04:10 04:11 04:21 Temperature Pulse Rate 89 88 Pulse Rate [ From Monitor] Respiratory 47 H 44 H 35 H Rate Respiratory Rate [ Generalized] Blood Pressure 106/68 106/70 O2 Sat by Pulse 100 100 Oximetry 10/03/18 10/03/18 10/03/18 04:30 04:41 04:51 Temperature Pulse Rate 88 87 88 Pulse Rate [ From Monitor] Respiratory 37 H 55 H 40 H Rate Respiratory Rate [ Generalized] Blood Pressure 105/68 105/68 104/67 O2 Sat by Pulse 100 93 94 Oximetry 10/03/18 10/03/18 10/03/18 05:00 05:11 05:21 Temperature Pulse Rate 88 90 90 Pulse Rate [ From Monitor] Respiratory 32 H 35 H 33 H Rate Respiratory Rate [ Generalized] Blood Pressure 100/65 100/65 101/64 O2 Sat by Pulse 93 94 96 Oximetry 10/03/18 10/03/18 10/03/18 05:30 05:41 05:50 Temperature Pulse Rate 89 88 88 Pulse Rate [ From Monitor] Respiratory 33 H 36 H 38 H Rate Respiratory Rate [ Generalized] Blood Pressure 97/66 97/66 100/69 O2 Sat by Pulse 96 97 96 Oximetry 10/03/18 10/03/18 10/03/18 06:01 06:11 06:21 Temperature Pulse Rate 81 85 86 Pulse Rate [ From Monitor] Respiratory 34 H 33 H 28 H Rate Respiratory Rate [ Generalized] Blood Pressure 116/68 116/68 116/68 O2 Sat by Pulse 98 89 95 Oximetry 10/03/18 10/03/18 10/03/18 06:31 06:41 06:51 Temperature Pulse Rate 92 H 86 84 Pulse Rate [ From Monitor] Respiratory 16 38 H 33 H Rate Respiratory Rate [ Generalized] Blood Pressure 91/70 91/70 91/70 O2 Sat by Pulse 92 91 98 Oximetry 10/03/18 10/03/18 10/03/18 07:00 07:11 07:20 Temperature Pulse Rate 78 80 76 Pulse Rate [ From Monitor] Respiratory 29 H 30 H 26 H Rate Respiratory Rate [ Generalized] Blood Pressure 88/49 88/49 93/48 O2 Sat by Pulse 100 99 100 Oximetry 10/03/18 10/03/18 10/03/18 07:30 07:41 07:51 Temperature Pulse Rate 74 73 73 Pulse Rate [ From Monitor] Respiratory 26 H 22 25 H Rate Respiratory Rate [ Generalized] Blood Pressure 91/48 91/48 91/48 O2 Sat by Pulse 100 100 100 Oximetry 10/03/18 10/03/18 10/03/18 08:00 08:11 08:21 Temperature 98.5 F Pulse Rate 73 71 70 Pulse Rate [ 80 From Monitor] Respiratory 23 26 H 26 H Rate Respiratory 23 Rate [ Generalized] Blood Pressure 100/49 100/49 82/47 O2 Sat by Pulse 100 100 100 Oximetry 10/03/18 10/03/18 10/03/18 08:31 08:41 08:51 Temperature Pulse Rate 72 73 78 Pulse Rate [ From Monitor] Respiratory 28 H 25 H 26 H Rate Respiratory Rate [ Generalized] Blood Pressure 91/48 91/48 91/48 O2 Sat by Pulse 100 100 100 Oximetry 10/03/18 10/03/18 10/03/18 09:00 09:11 09:16 Temperature Pulse Rate 78 76 Pulse Rate [ From Monitor] Respiratory 27 H 26 H Rate Respiratory Rate [ Generalized] Blood Pressure 104/58 104/58 O2 Sat by Pulse 100 100 100 Oximetry 10/03/18 10/03/18 10/03/18 09:21 09:30 09:41 Temperature Pulse Rate 74 75 75 Pulse Rate [ From Monitor] Respiratory 30 H 28 H 24 Rate Respiratory Rate [ Generalized] Blood Pressure 111/64 101/61 101/61 O2 Sat by Pulse 100 100 100 Oximetry 10/03/18 10/03/18 10/03/18 09:45 10:00 10:15 Temperature Pulse Rate 77 79 80 Pulse Rate [ From Monitor] Respiratory 26 H 26 H 25 H Rate Respiratory Rate [ Generalized] Blood Pressure 100/59 103/59 99/57 O2 Sat by Pulse 100 100 100 Oximetry 10/03/18 10/03/18 10/03/18 10:30 10:45 11:00 Temperature Pulse Rate 81 80 80 Pulse Rate [ From Monitor] Respiratory 27 H 27 H 27 H Rate Respiratory Rate [ Generalized] Blood Pressure 102/59 103/61 107/60 O2 Sat by Pulse 100 100 100 Oximetry 10/03/18 10/03/18 10/03/18 11:15 11:30 11:45 Temperature Pulse Rate 81 82 81 Pulse Rate [ From Monitor] Respiratory 29 H 25 H 27 H Rate Respiratory Rate [ Generalized] Blood Pressure 100/58 106/57 102/56 O2 Sat by Pulse 100 100 100 Oximetry 10/03/18 10/03/18 10/03/18 12:00 12:01 12:15 Temperature 99.0 F Pulse Rate 86 81 Pulse Rate [ 92 H From Monitor] Respiratory 21 20 32 H Rate Respiratory 21 Rate [ Generalized] Blood Pressure 102/56 99/53 O2 Sat by Pulse 100 97 99 Oximetry 10/03/18 10/03/18 10/03/18 12:30 12:45 13:01 Temperature Pulse Rate 78 57 L 72 Pulse Rate [ From Monitor] Respiratory 31 H 27 H 24 Rate Respiratory Rate [ Generalized] Blood Pressure 102/61 102/61 95/59 O2 Sat by Pulse 99 100 98 Oximetry 10/03/18 10/03/18 10/03/18 13:15 13:31 13:45 Temperature Pulse Rate 74 83 73 Pulse Rate [ From Monitor] Respiratory 26 H 31 H 24 Rate Respiratory Rate [ Generalized] Blood Pressure 89/54 117/68 107/64 O2 Sat by Pulse 100 99 100 Oximetry 10/03/18 14:00 Temperature Pulse Rate 73 Pulse Rate [ From Monitor] Respiratory 22 Rate Respiratory Rate [ Generalized] Blood Pressure 100/63 O2 Sat by Pulse 99 Oximetry - Labs CBC & Chem 7: 10/04/18 07:00 10/04/18 07:00 Labs: Abnormal lab results 10/02/18 10/03/18 10/03/18 Range/Units 09:46 00:03 06:06 WBC (4.5-11.0) K/mm3 RBC (3.65-5.03) M/mm3 Hgb (11.8-15.2) gm/dl Hct (35.5-45.6) % MCH (28-32) pg MCHC (32-34) % RDW (13.2-15.2) % Plt Count (140-440) K/mm3 Lymph % (Auto) (13.4-35.0) % Eos % (Auto) (0.0-4.3) % Lymph # (1.2-5.4) K/mm3 Eos # (0.0-0.4) K/mm3 Seg Neutrophils % (40.0-70.0) % Seg Neutrophils # (1.8-7.7) K/mm3 Sodium (137-145) mmol/L Chloride (98-107) mmol/L Carbon Dioxide (22-30) mmol/L BUN (9-20) mg/dL Creatinine (0.8-1.5) mg/dL Glucose (75-100) mg/dL POC Glucose 106 H 130 H (70-105) Calcium (8.4-10.2) mg/dL Crossmatch See Detail 10/03/18 10/03/18 Range/Units 06:45 06:45 WBC 17.3 H (4.5-11.0) K/mm3 RBC 2.81 L (3.65-5.03) M/mm3 Hgb 7.6 L (11.8-15.2) gm/dl Hct 24.1 L (35.5-45.6) % MCH 27 L (28-32) pg MCHC 31 L (32-34) % RDW 18.4 H (13.2-15.2) % Plt Count 473 H (140-440) K/mm3 Lymph % (Auto) 5.2 L (13.4-35.0) % Eos % (Auto) 4.6 H (0.0-4.3) % Lymph # 0.9 L (1.2-5.4) K/mm3 Eos # 0.8 H (0.0-0.4) K/mm3 Seg Neutrophils % 85.7 H (40.0-70.0) % Seg Neutrophils # 14.8 H (1.8-7.7) K/mm3 Sodium 148 H (137-145) mmol/L Chloride 112.1 H (98-107) mmol/L Carbon Dioxide 21 L (22-30) mmol/L BUN 79 H (9-20) mg/dL Creatinine 1.7 H (0.8-1.5) mg/dL Glucose 116 H (75-100) mg/dL POC Glucose (70-105) Calcium 7.9 L (8.4-10.2) mg/dL Crossmatch
[2018-10-04 07:20] LABS: Basophils # (Auto) 0.1 K/mm3 (0.0-0.1); Basophils % (Auto) 0.4 % (0.0-1.8); Eosinophils # (Auto) 1.4 K/mm3 (0.0-0.4); Eosinophils % (Auto) 9.5 % (0.0-4.3); Hematocrit 20.5 % (35.5-45.6); Hemoglobin 6.4 gm/dl (11.8-15.2); Lymphocytes # (Auto) 0.8 K/mm3 (1.2-5.4); Lymphocytes % (Auto) 5.3 % (13.4-35.0); Mean Corpuscular HGB Conc 31 % (32-34); Mean Corpuscular Volume 86 fl (84-94); Monocytes # (Auto) 0.5 K/mm3 (0.0-0.8); Monocytes % (Auto) 3.6 % (0.0-7.3); Platelet Count 376 K/mm3 (140-440); Red Blood Count 2.38 M/mm3 (3.65-5.03); Red Cell Distribution Width 18.2 % (13.2-15.2)
[2018-10-04 08:19] LABS: Alanine Aminotransferase 15 units/L (7-56); Albumin 1.5 g/dL (3.9-5); BUN/Creatinine Ratio 49; Blood Urea Nitrogen 73 mg/dL (9-20); Calcium 8.1 mg/dL (8.4-10.2); Hemolysis Index 1
[2018-10-04 08:27] LABS: Bilirubin,Direct < 0.2 mg/dL (0-0.2)
--- NOTE | 2018-10-04 09:14 | Progress Note ---
Assessment and Plan 1. Acute kidney injury: Vasomotor / hemodynamic MÓNICA in the setting of hypotension, sepsis and volume depletion. Continue IV fluids. Renal function is improving. Monitor renal function. Renal prognosis is guarded. Avoid nephrotoxic agents. Meds dosage based on GFR. 2. FEN: Hypernatremia, 1/2 NS. Monitor lytes. 3. Sepsis with shock: Levophed. 4. Anemia: PRBC. 5. Multiple decubitus ulcers. 6. Encephalopathy. Subjective Date of service: 10/04/18 Principal diagnosis: septic shock Interval history: Patient was seen and examined at the bedside. Objective - Vital Signs Vital signs: Vital Signs - 12hr 10/03/18 10/03/18 10/03/18 21:15 21:30 21:45 Temperature Pulse Rate 76 77 75 Pulse Rate [ From Monitor] Respiratory 28 H 25 H 25 H Rate Blood Pressure 106/53 101/55 105/51 O2 Sat by Pulse 98 100 99 Oximetry 10/03/18 10/03/18 10/03/18 22:00 22:15 22:30 Temperature Pulse Rate 76 76 82 Pulse Rate [ From Monitor] Respiratory 25 H 23 27 H Rate Blood Pressure 104/53 105/51 110/57 O2 Sat by Pulse 100 99 100 Oximetry 10/03/18 10/03/18 10/03/18 22:45 22:54 23:00 Temperature 98.9 F Pulse Rate 79 88 Pulse Rate [ From Monitor] Respiratory 22 25 H Rate Blood Pressure 115/56 118/62 O2 Sat by Pulse 100 99 Oximetry 10/03/18 10/03/18 10/03/18 23:15 23:30 23:45 Temperature Pulse Rate 83 82 78 Pulse Rate [ From Monitor] Respiratory 23 22 22 Rate Blood Pressure 108/55 96/50 95/47 O2 Sat by Pulse 98 96 96 Oximetry 10/04/18 10/04/18 10/04/18 00:00 00:15 00:30 Temperature Pulse Rate 78 80 78 Pulse Rate [ 77 From Monitor] Respiratory 18 33 H 31 H Rate Blood Pressure 97/52 99/47 85/47 O2 Sat by Pulse 97 97 98 Oximetry 10/04/18 10/04/18 10/04/18 00:39 00:45 01:00 Temperature Pulse Rate 76 77 Pulse Rate [ From Monitor] Respiratory 24 21 Rate Blood Pressure 97/50 101/51 O2 Sat by Pulse 99 98 99 Oximetry 10/04/18 10/04/18 10/04/18 01:15 01:30 01:45 Temperature Pulse Rate 75 74 76 Pulse Rate [ From Monitor] Respiratory 18 17 22 Rate Blood Pressure 102/45 98/50 102/53 O2 Sat by Pulse 98 99 97 Oximetry 10/04/18 10/04/18 10/04/18 02:00 02:15 02:30 Temperature Pulse Rate 76 74 76 Pulse Rate [ From Monitor] Respiratory 22 21 22 Rate Blood Pressure 104/54 102/52 103/54 O2 Sat by Pulse 98 97 96 Oximetry 10/04/18 10/04/18 10/04/18 02:45 03:00 03:15 Temperature Pulse Rate 75 76 76 Pulse Rate [ From Monitor] Respiratory 22 19 21 Rate Blood Pressure 100/52 97/50 96/53 O2 Sat by Pulse 96 98 96 Oximetry 10/04/18 10/04/18 10/04/18 03:30 03:31 03:45 Temperature 97.4 F L Pulse Rate 77 77 Pulse Rate [ From Monitor] Respiratory 23 20 Rate Blood Pressure 103/54 97/55 O2 Sat by Pulse 96 99 Oximetry 10/04/18 10/04/18 10/04/18 04:00 04:15 04:30 Temperature Pulse Rate 77 75 76 Pulse Rate [ 90 From Monitor] Respiratory 23 22 23 Rate Blood Pressure 105/54 104/54 102/54 O2 Sat by Pulse 96 97 97 Oximetry 10/04/18 10/04/18 10/04/18 04:45 05:00 05:15 Temperature Pulse Rate 80 77 78 Pulse Rate [ From Monitor] Respiratory 23 22 20 Rate Blood Pressure 110/59 109/56 105/57 O2 Sat by Pulse 97 97 97 Oximetry 10/04/18 10/04/18 10/04/18 05:30 05:45 06:00 Temperature Pulse Rate 79 79 79 Pulse Rate [ From Monitor] Respiratory 23 20 25 H Rate Blood Pressure 111/58 102/55 106/58 O2 Sat by Pulse 96 97 95 Oximetry 10/04/18 10/04/18 10/04/18 06:15 06:30 06:45 Temperature Pulse Rate 80 80 81 Pulse Rate [ From Monitor] Respiratory 23 25 H 24 Rate Blood Pressure 110/58 106/58 111/57 O2 Sat by Pulse 96 94 94 Oximetry 10/04/18 10/04/18 10/04/18 07:00 07:15 07:30 Temperature Pulse Rate 83 82 81 Pulse Rate [ From Monitor] Respiratory 22 24 29 H Rate Blood Pressure 111/57 112/61 107/59 O2 Sat by Pulse 96 96 94 Oximetry 10/04/18 10/04/18 10/04/18 07:45 07:52 08:00 Temperature Pulse Rate 81 81 Pulse Rate [ From Monitor] Respiratory 24 25 H Rate Blood Pressure 113/63 111/60 O2 Sat by Pulse 94 95 94 Oximetry 10/04/18 10/04/18 08:15 08:30 Temperature Pulse Rate 80 82 Pulse Rate [ From Monitor] Respiratory 29 H 24 Rate Blood Pressure 118/63 110/62 O2 Sat by Pulse 95 96 Oximetry - General Appearance General appearance: well-developed, appears stated age, other (not in distress) EENT: ATNC, PERRL Respiratory: Present: Clear to Ascultation Cardiology: regular, S1S2, no murmurs Gastrointestinal: normoactive bowel sounds, no tenderness, no distended, other (PEG tube noted) Integumentary: ulcer, decubiti Neurologic: other (not following any command, alert) Musculoskeletal: other (multiple contractures noted) - Lab 10/06/18 05:15 10/06/18 05:15 Most recent lab results Calcium 8.1 mg/dL (8.4-10.2) L 10/04/18 07:00 Phosphorus 5.00 mg/dL (2.5-4.5) H 10/02/18 04:45 Magnesium 3.30 mg/dL (1.7-2.3) H 10/01/18 18:23 74.7 mg/dL (0.1-20.0) H 10/02/18 04:45 21 mmol/L 10/02/18 04:45 Medications & Allergies - Medications Allergies/Adverse Reactions: Allergies lisinopril Allergy (Verified 10/01/18 15:17) Unknown tramadol Allergy (Verified 07/29/18 18:39) Unknown Home Medications: Home Medications Medication Instructions Recorded Confirmed Last Taken Type Multivit-Min/Iron Fum/Folic AC 1 each PO DAILY 03/24/18 10/03/18 Unknown History [Xucuf-Ikebqto-Kityziir Tablet] Acetaminophen 650 mg NGTUBE Q6H PRN 07/30/18 10/03/18 Unknown History AtorvaSTATin [Lipitor] 40 mg NGTUBE QHS 07/30/18 10/03/18 Unknown History Dutasteride 0.5 mg NGTUBE QAM 07/30/18 10/03/18 Unknown History Ipratropium/Albuterol Sulfate 1 ampul IH BID 07/30/18 10/03/18 Unknown History [DUONEB *Not for PRN Use*] Lisinopril [Zestril TAB] 40 mg PO QDAY 07/30/18 10/03/18 Unknown History Tamsulosin [Flomax] 0.4 mg PO QDAY 07/30/18 10/03/18 Unknown History Vit C/Ascorbate Calcium,Sodium 500 mg NGTUBE BID 07/30/18 10/03/18 Unknown History [Vitamin C 500 mg/15 ml Liquid] Zinc Sulfate 220 mg NGTUBE QDAY 07/30/18 10/03/18 Unknown History levETIRAcetam [Keppra INJ] 500 mg PO Q12H 07/30/18 10/03/18 Unknown History Carvedilol [Coreg] 3.125 mg PO BID #60 tablet 08/23/18 10/03/18 Unknown Rx Furosemide [Lasix] 20 mg PO QDAY #30 tablet 08/23/18 10/03/18 Unknown Rx Oxycodone HCl/Acetaminophen 1 each PO Q8HR PRN #14 tablet 08/23/18 10/03/18 Unknown Rx [Percocet 7.5/325 mg] Phosphorus #1 [K-Phos Neutral] 250 mg PO QID #30 tablet 08/23/18 10/03/18 Unknown Rx hydroCHLOROthiazide [HCTZ] 12.5 mg PO QDAY #30 tablet 08/23/18 10/03/18 Unknown Rx Active Medications: Generic Name Dose Route Start Last Admin Trade Name Freq PRN Reason Stop Dose Admin Acetaminophen 650 mg 10/01/18 15:32 Tylenol FEEDTUBE Q6H PRN Pain, Moderate (4-6) Albuterol 2.5 mg 10/01/18 17:40 Proventil IH Q3HRT PRN Shortness Of Breath Lipase/Protease/Amylase 1 each 10/02/18 10:[address] 10,500 Unit FEEDTUBE PRN PRN For Clogged Feeding Tube Ascorbic Acid 500 mg 10/01/18 22:00 10/03/18 22:50 Vitamin C FEEDTUBE 500 mg BID NORA Administration Atorvastatin Calcium 40 mg 10/01/18 22:00 10/03/18 22:50 Lipitor FEEDTUBE 40 mg QHS NORA Administration Famotidine 20 mg 10/03/18 12:00 10/03/18 13:32 Pepcid PO 20 mg DAILY NORA Administration Heparin Sodium (Porcine) 5,000 unit 10/01/18 22:00 10/03/18 22:50 Heparin SUB-Q 5,000 unit Q12HR NORA Administration Meropenem 500 mg in 50 mls @ 50 mls/hr 10/02/18 11:00 10/03/18 22:51 Merrem/Ns 500 Mg/50 Ml IV 50 mls/hr Q12HR NORA Administration Vasopressin 20 unit/ Sodium 101 mls @ 9.09 mls/hr 10/02/18 10:00 Chloride IV TITR NORA Protocol 0.03 UNITS/MIN Vancomycin HCl 1 gm in 250 mls @ 167.007 mls/hr 10/02/18 11:00 10/03/18 11:05 Vancomycin/Ns 1 Gm/250 Ml IV 167.007 mls/hr Q24HR NORA Administration Norepinephrine 8 mg/ Sodium 250 mls @ 3.75 mls/hr 10/02/18 11:00 10/03/18 16:15 Chloride IV 0 mcg/min TITR NORA 0 mls/hr Titration Protocol 2 MCG/MIN Potassium Chloride/Dextrose/Sod Cl 30 meq in 1,000 mls @ 50 mls/hr 10/02/18 11:00 10/03/18 13:30 D5w/0.45% Nacl/Kcl 30 Meq IV Infused DIRECT NORA Infusion Lactated Ringer's 1,000 mls @ 200 mls/hr 10/03/18 12:00 10/03/18 18:14 Lactated Ringers IV 10/04/18 16:59 200 mls/hr DIRECT NORA Administration Levetiracetam 500 mg 10/01/18 22:00 10/03/18 22:50 Keppra PO 500 mg BID NORA Administration Multivitamins 1 each 10/02/18 10:00 10/03/18 10:54 Theragran Tab PO 1 each DAILY NORA Administration Oxycodone/Acetaminophen 1 tab 10/02/18 20:16 10/03/18 22:51 Percocet 5/325 PO 1 tab Q4H PRN Administration Pain, Moderate (4-6) Simple Syrup 15 ml 10/02/18 10:35 Simple Syrup FEEDTUBE PRN PRN Hypoglycemia Simple Syrup 30 ml 10/02/18 10:35 Simple Syrup FEEDTUBE PRN PRN Hypoglycemia Sodium Bicarbonate 325 mg 10/02/18 10:35 Sodium Bicarbonate FEEDTUBE PRN PRN For Clogged Feeding Tube Sodium Chloride 10 ml 10/01/18 22:00 10/03/18 10:55 Sodium Chloride Flush Syringe 10 Ml IV 10 ml BID NORA Administration Sodium Chloride 10 ml 10/01/18 17:40 Sodium Chloride Flush Syringe 10 Ml IV PRN PRN LINE FLUSH Zinc Sulfate 220 mg 10/02/18 10:00 10/03/18 10:55 Zinc Sulfate PO 220 mg QDAY NORA Administration
[2018-10-04] MEDS: MERREM/NS 500 MG/50 ML 500 MG/50 ML BAG IV SCH ×2 (10:00→21:51)
[2018-10-04] MEDS: ZINC SULFATE PO SCH (10:05)
[2018-10-04] MEDS: PEPCID PO SCH (10:05)
[2018-10-04] MEDS: KEPPRA PO SCH ×2 (10:05→21:10)
[2018-10-04] MEDS: HEPARIN SUB-Q SCH ×2 (10:05→21:11)
[2018-10-04] MEDS: THERAGRAN Tab PO SCH (10:05)
[2018-10-04] MEDS: SODIUM CHLORIDE FLUSH SYRINGE 10 ML IV SCH ×2 (10:06→22:08)
[2018-10-04] MEDS: VANCOMYCIN/NS 1 GM/250 ML 1 GM/250 ML BAG IV SCH (10:17)
[2018-10-04] MEDS: VITAMIN C FEEDTUBE SCH ×2 (10:17→21:10)
--- NOTE | 2018-10-04 10:56 | Progress Note ---
Assessment and Plan Cultures: Blood culture 10/01/2018 Staph aureus 2 of 4. Blood culture 10/03/2018 no growth Assessment: 67 y/o male with hsitory of HTN, CVA, Obstructive Uropathy, Contracture, Multiple Decubitus Ulcers, WI, DM, OA, Seizure Disorder, COPD, Dementia, Debility, BPH, well known to ID due to multiple admissions from ducubitus ulcers infections, resident of skilled nursing, admitted on due to decreased responsiveness compared to baseline and hypotension SBP in 60's: 1) Severe Sepsis with septic shock: improving, off pressors today. Etiology most likely Staph bacteremia. 2) Staph bacteremia: source likely multiple decubitus or UTI. Blood culture 10/01/2018 GPC in clusters 2 of 4. TTE no negative. 3) Recent septic shock due to polymicrobial bacteremia ESBL E coli, MDR Proteus, Strep and E faecalis on 07/29/2018 probably from multiple infected decubitus ulcers and less likely UTI. Repeat blood cultures 07/31/2018 showed same MDR E coli 1 of 4 bottles then 08/06/2018 blood cultures showed no growth. Patient did not respond to carbapenem and was placed on vabomere for 14 days. 4) Multiple infected decubitus ulcers: currently active large left trochanteric with bone exposure and sacral with bone exposure. His prognosis has been poor and discussed previously with family hospice indication but they declined. His wounds are not curable considering his contractures, bed bound status and poor nutritional status. There was also suspicion of septic arthritis of left hip from decubitus ulcer. 5) Recurrent CAUTI 6) Acute encephalopathy: resolved. 7) MÓNICA: resolved Recommendations: - f/u repeat blood cultures - wound care - continue meropenem and vancomycin D3 for now - if MRSA will continue vancomycin. if MSSA will do cefazolin - will continue meropenem 5 days to cover UTI as urine culture was not sent and he has h/o MDR GNRs Dr Lindsey [phone] will be covering the weekend Discussed with pharmacist Prognosis very poor and discussed previously with family hospice indication but they declined. Will follow. Penny Bernardo MD Infectious Diseases [place] [facility] M [phone] O [phone] Subjective Date of service: 10/04/18 Principal diagnosis: septic shock Interval history: Now off pressors, more alert, talking, tmax 99.8 ROS limited confused Objective - Exam Narrative Exam: General appearance: Alert in NAD verbal Eyes: anicteric sclerae, moist conjunctivae; no lid-lag; PERRLA HENT: Atraumatic; oropharynx limited Neck: Trachea midline; supple, no thyromegaly or lymphadenopathy Lungs: scattered rhonchi CV: tachycardic Abdomen: Soft, non-tender;PEG Extremities: altaf contracted legs, multiple wounds covered Skin: multiple skin tears Psych: no agitated Neuro: alert non verbal no agitated WOUND CARE EVAL LEFT TROCHANTER STAGE 4 PRESSURE INJURY. LARGE AMOUNT OF YELLOW DRAINAGE. NO ODOR. WOUND PROBES TO A DEPTH OF 8CM. 6X6X8. THERE IS BONE EXPOSED. CLEANSED WITH WOUND CLEANSER. PACKED WITH 2 PIECES OF 4X4 ALGINATE. COVERED WITH 4X4 GAUZE, THEN TELFA. STAGE 4 SACRAL PRESSURE INJURY NOTED. PINK GRANULATION TISSUE. MODERATE AMOUNT OF YELLOW DRAINAGE. BONE IS EXPOSED. PERIWOUND SKIN IS INTACT. MEASURES [id number] CLEANSED WITH WOUND CLEANSER. ALGINATE APPLIED. COVERED WITH 4X4 GAUZE, THEN TELFA. - Constitutional Vitals: Vital Signs Temp Pulse Resp BP Pulse Ox 98.6 F 82 24 110/62 96 10/04/18 08:00 10/04/18 08:30 10/04/18 08:30 10/04/18 08:30 10/04/18 08:30 Temperature -Last 24 Hours Temperature 98.6 F Temperature 97.4 F Temperature 98.9 F Temperature 98.8 F Temperature 98.0 F Temperature 99.0 F - Labs CBC & Chem 7: 10/04/18 07:00 10/04/18 07:00 Labs: Abnormal lab results 10/02/18 10/03/18 10/03/18 Range/Units 09:46 11:50 17:42 WBC (4.5-11.0) K/mm3 RBC (3.65-5.03) M/mm3 Hgb (11.8-15.2) gm/dl Hct (35.5-45.6) % MCH (28-32) pg MCHC (32-34) % RDW (13.2-15.2) % Lymph % (Auto) (13.4-35.0) % Eos % (Auto) (0.0-4.3) % Lymph # (1.2-5.4) K/mm3 Eos # (0.0-0.4) K/mm3 Seg Neutrophils % (40.0-70.0) % Seg Neutrophils # (1.8-7.7) K/mm3 Sodium (137-145) mmol/L Chloride (98-107) mmol/L BUN (9-20) mg/dL Glucose (75-100) mg/dL POC Glucose 126 H 118 H (70-105) Calcium (8.4-10.2) mg/dL Albumin (3.9-5) g/dL Crossmatch See Detail 10/03/18 10/04/18 10/04/18 Range/Units 23:20 05:22 07:00 WBC 14.8 H (4.5-11.0) K/mm3 RBC 2.38 L (3.65-5.03) M/mm3 Hgb 6.4 L (11.8-15.2) gm/dl Hct 20.5 L (35.5-45.6) % MCH 27 L (28-32) pg MCHC 31 L (32-34) % RDW 18.2 H (13.2-15.2) % Lymph % (Auto) 5.3 L (13.4-35.0) % Eos % (Auto) 9.5 H (0.0-4.3) % Lymph # 0.8 L (1.2-5.4) K/mm3 Eos # 1.4 H (0.0-0.4) K/mm3 Seg Neutrophils % 81.2 H (40.0-70.0) % Seg Neutrophils # 12.0 H (1.8-7.7) K/mm3 Sodium (137-145) mmol/L Chloride (98-107) mmol/L BUN (9-20) mg/dL Glucose (75-100) mg/dL POC Glucose 106 H 115 H (70-105) Calcium (8.4-10.2) mg/dL Albumin (3.9-5) g/dL Crossmatch 10/04/18 Range/Units 07:00 WBC (4.5-11.0) K/mm3 RBC (3.65-5.03) M/mm3 Hgb (11.8-15.2) gm/dl Hct (35.5-45.6) % MCH (28-32) pg MCHC (32-34) % RDW (13.2-15.2) % Lymph % (Auto) (13.4-35.0) % Eos % (Auto) (0.0-4.3) % Lymph # (1.2-5.4) K/mm3 Eos # (0.0-0.4) K/mm3 Seg Neutrophils % (40.0-70.0) % Seg Neutrophils # (1.8-7.7) K/mm3 Sodium 148 H (137-145) mmol/L Chloride 112.0 H (98-107) mmol/L BUN 73 H (9-20) mg/dL Glucose 105 H (75-100) mg/dL POC Glucose (70-105) Calcium 8.1 L (8.4-10.2) mg/dL Albumin 1.5 L (3.9-5) g/dL Crossmatch
[2018-10-04] MEDS ORDERED: NACL 0.9% 500 ML 500 ML IV ONE (11:00)
--- NOTE | 2018-10-04 11:19 | Progress Note ---
Assessment and Plan Severe Sepsis with septic shock GPC bacteremia Acute encephalopathy Multiple decubitus ulcers Acute metabolic encephaloapthy Hypernatremia Recurrent CAUTI Lactic acidosis Acute renal failure- prerenal/vasomotor nephropathy - advance enteral nutrition to goal re: hypoglycemia - continue volume resuscitation but with isotonic fluids - continue free water flushes for hypernatremia - get CRP and lactate levels prn to aid clinical decision making - continue to monitor renal indices closely (improving) - continue to avoid nephrotoxic agents, adjust all medications for CrCL - continue strict intake and output monitoring - nephrology evaluation ongoing - continue to wean vasopressor support for MAP < 65 - continue to wean supplemental oxygen for O2 sats>90% - VTE prophylaxis - continue and de-escalate AB's per ID rec's - Nutrition consulted for tube feedings - continue aspiration precautions - continue mobility protocol as tolerated for pressure ulcer prophylaxis - wound care per WCT - continue accuchecks with glycemic control per SSI for target glucose of 140- 180 mg/dL - continue bronchodilators with pulmonary hygiene per RT - Discontinue femoral CVL as soon as feasible (contracted; technically difficult for subclavian or IJ; PICC also challenging and bacteremic now) - Influenza and pneumonia vaccination per protocol ..care plan discussed at length with RN/RT at the bedside ...care plan discussed in detail in ICU-IDT rounds PROGNOSIS: GUARDED/POOR CONDITION: CRITICAL CODE STATUS: FULL CODE The high probability of a clinically significant, sudden or life-threatening deterioration of the [cardiovascular, neurology, renal] system(s) required my full and direct attention, intervention and personal management. The aggregate critical care time was [32] minutes without overlap. Time includes spent on; [x] Data Review and interpretation [x] Patient assessment and monitoring of vital signs [x] Documentation [x] Medication orders and management Subjective Date of service: 10/04/18 Principal diagnosis: Septic shock; Ac encephalopathy; Multiple decubitus ulcers; Ac renal failur Interval history: Patient is seen today for: Severe Sepsis with septic shock; GPC bacteremia; Acute encephalopathy; Multiple decubitus ulcers; Acute metabolic encephaloapthy; Hypernatremia; Recurrent CAUTI; Lactic acidosis; Acute renal failure- prerenal/vasomotor nephropathy Seen and examined at bedside; 24hour events reviewed; nursing and respiratory care staff consulted; no adverse overnight events reported to me; resting peacefully in bed; blood sugars running low this am; no seizures; remains on supplemental oxygen; no emesis or overt aspiration and no gross bleeding. Objective Vital Signs - 12hr 10/03/18 10/03/18 10/04/18 23:30 23:45 00:00 Temperature Pulse Rate 82 78 78 Pulse Rate [ 77 From Monitor] Respiratory 22 22 18 Rate Respiratory Rate [ Generalized] Blood Pressure 96/50 95/47 97/52 O2 Sat by Pulse 96 96 97 Oximetry 10/04/18 10/04/18 10/04/18 00:15 00:30 00:39 Temperature Pulse Rate 80 78 Pulse Rate [ From Monitor] Respiratory 33 H 31 H Rate Respiratory Rate [ Generalized] Blood Pressure 99/47 85/47 O2 Sat by Pulse 97 98 99 Oximetry 10/04/18 10/04/18 10/04/18 00:45 01:00 01:15 Temperature Pulse Rate 76 77 75 Pulse Rate [ From Monitor] Respiratory 24 21 18 Rate Respiratory Rate [ Generalized] Blood Pressure 97/50 101/51 102/45 O2 Sat by Pulse 98 99 98 Oximetry 10/04/18 10/04/18 10/04/18 01:30 01:45 02:00 Temperature Pulse Rate 74 76 76 Pulse Rate [ From Monitor] Respiratory 17 22 22 Rate Respiratory Rate [ Generalized] Blood Pressure 98/50 102/53 104/54 O2 Sat by Pulse 99 97 98 Oximetry 10/04/18 10/04/18 10/04/18 02:15 02:30 02:45 Temperature Pulse Rate 74 76 75 Pulse Rate [ From Monitor] Respiratory 21 22 22 Rate Respiratory Rate [ Generalized] Blood Pressure 102/52 103/54 100/52 O2 Sat by Pulse 97 96 96 Oximetry 10/04/18 10/04/18 10/04/18 03:00 03:15 03:30 Temperature Pulse Rate 76 76 77 Pulse Rate [ From Monitor] Respiratory 19 21 23 Rate Respiratory Rate [ Generalized] Blood Pressure 97/50 96/53 103/54 O2 Sat by Pulse 98 96 96 Oximetry 10/04/18 10/04/18 10/04/18 03:31 03:45 04:00 Temperature 97.4 F L Pulse Rate 77 77 Pulse Rate [ 90 From Monitor] Respiratory 20 23 Rate Respiratory Rate [ Generalized] Blood Pressure 97/55 105/54 O2 Sat by Pulse 99 96 Oximetry 10/04/18 10/04/1819 04:15 04:30 04:45 Temperature Pulse Rate 75 76 80 Pulse Rate [ From Monitor] Respiratory 22 23 23 Rate Respiratory Rate [ Generalized] Blood Pressure 104/54 102/54 110/59 O2 Sat by Pulse 97 97 97 Oximetry 10/04/18 10/04/18 10/04/18 05:00 05:15 05:30 Temperature Pulse Rate 77 78 79 Pulse Rate [ From Monitor] Respiratory 22 20 23 Rate Respiratory Rate [ Generalized] Blood Pressure 109/56 105/57 111/58 O2 Sat by Pulse 97 97 96 Oximetry 10/04/18 10/04/18 10/04/18 05:45 06:00 06:15 Temperature Pulse Rate 79 79 80 Pulse Rate [ From Monitor] Respiratory 20 25 H 23 Rate Respiratory Rate [ Generalized] Blood Pressure 102/55 106/58 110/58 O2 Sat by Pulse 97 95 96 Oximetry 10/04/18 10/04/18 10/04/18 06:30 06:45 07:00 Temperature Pulse Rate 80 81 83 Pulse Rate [ From Monitor] Respiratory 25 H 24 22 Rate Respiratory Rate [ Generalized] Blood Pressure 106/58 111/57 111/57 O2 Sat by Pulse 94 94 96 Oximetry 10/04/18 10/04/18 10/04/18 07:15 07:30 07:45 Temperature Pulse Rate 82 81 81 Pulse Rate [ From Monitor] Respiratory 24 29 H 24 Rate Respiratory Rate [ Generalized] Blood Pressure 112/61 107/59 113/63 O2 Sat by Pulse 96 94 94 Oximetry 10/04/18 10/04/18 10/04/18 07:52 08:00 08:15 Temperature 98.6 F Pulse Rate 81 80 Pulse Rate [ 82 From Monitor] Respiratory 26 H 29 H Rate Respiratory 24 Rate [ Generalized] Blood Pressure 111/60 118/63 O2 Sat by Pulse 95 96 95 Oximetry 10/04/18 10/04/18 10/04/18 08:30 08:45 09:00 Temperature Pulse Rate 82 82 83 Pulse Rate [ From Monitor] Respiratory 24 26 H 25 H Rate Respiratory Rate [ Generalized] Blood Pressure 110/62 115/63 122/62 O2 Sat by Pulse 96 96 97 Oximetry 10/04/18 10/04/18 10/04/18 09:15 09:30 09:45 Temperature Pulse Rate 82 83 83 Pulse Rate [ From Monitor] Respiratory 22 25 H 30 H Rate Respiratory Rate [ Generalized] Blood Pressure 109/57 114/60 116/60 O2 Sat by Pulse 97 95 95 Oximetry 10/04/18 10/04/18 10/04/18 10:00 10:15 10:30 Temperature Pulse Rate 91 H 87 84 Pulse Rate [ From Monitor] Respiratory 21 29 H 30 H Rate Respiratory Rate [ Generalized] Blood Pressure 124/68 117/64 112/60 O2 Sat by Pulse 95 96 96 Oximetry 10/04/18 10:45 Temperature Pulse Rate 92 H Pulse Rate [ From Monitor] Respiratory 26 H Rate Respiratory Rate [ Generalized] Blood Pressure 112/60 O2 Sat by Pulse 94 Oximetry Constitutional: appears uncomfortable, other (elderly looking AAM, normocephalic but contrated and with mildly increased work of breathing at rest) Eyes: non-icteric ENT: oropharynx moist Neck: no lymphadenopathy, no JVD, other (neck stiff and deviated to the right side) Effort: mildly labored Ascultation: Bilateral: diminished breath sounds, rhonchi Percussion: Bilateral: not dull Cardiovascular: regular rate and rhythm Gastrointestinal: normoactive bowel sounds, soft, non-tender, non-distended, other (PEG tube) Integumentary: rash Extremities: no cyanosis, pulses normal, no ischemia or petechiae Neurologic: pupils equal and round Psychiatric: other (unable to assess) CBC and BMP: 10/06/18 05:15 10/06/18 05:15 ABG, PT/INR, D-dimer: ABG POC ABG pH 7.480 (7.35-7.45) H 10/01/18 18:12 POC ABG pO2 64 (80-105) L 10/01/18 18:12 POC ABG HCO3 21.0 (22-26 mml/L) 10/01/18 18:12 POC ABG Total CO2 22 (23-27mmol/L) 10/01/18 18:12 POC ABG O2 Sat 94 10/01/18 18:12 Abnormal lab findings: Abnormal Labs 10/01/18 10/01/18 10/01/18 14:29 14:29 15:13 WBC 18.5 H RBC 2.68 L Hgb 7.3 L Hct 23.1 L MCH 27 L MCHC 31 L RDW 19.3 H Plt Count 522 H Lymph % (Auto) 6.7 L Eos % (Auto) Lymph # Lea # 1.2 H Eos # Seg Neutrophils % 85.0 H Seg Neuts % (Manual) Lymphocytes % (Manual) Seg Neutrophils # 15.7 H Seg Neutrophils # Man Lymphocytes # (Manual) POC ABG pH POC ABG pO2 Sodium 148 H Potassium 3.3 L Chloride Carbon Dioxide BUN 98 H Creatinine 2.0 H Glucose 142 H POC Glucose Lactic Acid Calcium Phosphorus Magnesium AST Alkaline Phosphatase Troponin T 0.361 H* Albumin Cholesterol 36 L LDL Cholesterol Direct 6 L HDL Cholesterol 21 L Urine WBC (Auto) > 182.0 H Urine Creatinine Crossmatch 10/01/18 10/01/18 10/01/18 15:15 15:15 17:03 WBC RBC Hgb Hct MCH MCHC RDW Plt Count Lymph % (Auto) Eos % (Auto) Lymph # Lea # Eos # Seg Neutrophils % Seg Neuts % (Manual) Lymphocytes % (Manual) Seg Neutrophils # Seg Neutrophils # Man Lymphocytes # (Manual) POC ABG pH POC ABG pO2 Sodium 150 H Potassium Chloride Carbon Dioxide BUN 94 H Creatinine 2.1 H Glucose 132 H POC Glucose Lactic Acid 2.60 H* 2.20 H* Calcium 7.8 L Phosphorus Magnesium AST 47 H Alkaline Phosphatase 179 H Troponin T Albumin 2.1 L Cholesterol LDL Cholesterol Direct HDL Cholesterol Urine WBC (Auto) Urine Creatinine Crossmatch 10/01/18 10/01/18 10/01/18 18:12 18:23 18:23 WBC RBC Hgb Hct MCH MCHC RDW Plt Count Lymph % (Auto) Eos % (Auto) Lymph # Lea # Eos # Seg Neutrophils % Seg Neuts % (Manual) Lymphocytes % (Manual) Seg Neutrophils # Seg Neutrophils # Man Lymphocytes # (Manual) POC ABG pH 7.480 H POC ABG pO2 64 L Sodium Potassium Chloride Carbon Dioxide BUN Creatinine Glucose POC Glucose Lactic Acid Calcium Phosphorus Magnesium 3.30 H AST Alkaline Phosphatase Troponin T 0.378 H* Albumin Cholesterol LDL Cholesterol Direct HDL Cholesterol Urine WBC (Auto) Urine Creatinine Crossmatch 10/01/18 10/01/18 10/01/18 18:48 21:20 23:48 WBC RBC Hgb Hct MCH MCHC RDW Plt Count Lymph % (Auto) Eos % (Auto) Lymph # Lea # Eos # Seg Neutrophils % Seg Neuts % (Manual) Lymphocytes % (Manual) Seg Neutrophils # Seg Neutrophils # Man Lymphocytes # (Manual) POC ABG pH POC ABG pO2 Sodium Potassium Chloride Carbon Dioxide BUN Creatinine Glucose POC Glucose Lactic Acid 2.30 H* 2.70 H* Calcium Phosphorus Magnesium AST Alkaline Phosphatase Troponin T 0.336 H* Albumin Cholesterol LDL Cholesterol Direct HDL Cholesterol Urine WBC (Auto) Urine Creatinine Crossmatch 10/01/18 10/02/18 10/02/18 23:48 04:45 04:45 WBC 18.3 H RBC 2.40 L Hgb 6.4 L Hct 20.4 L MCH 27 L MCHC 31 L RDW 19.1 H Plt Count 462 H Lymph % (Auto) Eos % (Auto) Lymph # Lea # Eos # Seg Neutrophils % Seg Neuts % (Manual) 78.0 H Lymphocytes % (Manual) 5.0 L Seg Neutrophils # Seg Neutrophils # Man 14.3 H Lymphocytes # (Manual) 0.9 L POC ABG pH POC ABG pO2 Sodium Potassium Chloride Carbon Dioxide BUN Creatinine Glucose POC Glucose Lactic Acid 2.50 H* Calcium Phosphorus Magnesium AST Alkaline Phosphatase Troponin T Albumin Cholesterol LDL Cholesterol Direct HDL Cholesterol Urine WBC (Auto) Urine Creatinine 74.7 H Crossmatch 10/02/18 10/02/18 10/02/18 04:45 04:45 04:45 WBC RBC Hgb Hct MCH MCHC RDW Plt Count Lymph % (Auto) Eos % (Auto) Lymph # Lea # Eos # Seg Neutrophils % Seg Neuts % (Manual) Lymphocytes % (Manual) Seg Neutrophils # Seg Neutrophils # Man Lymphocytes # (Manual) POC ABG pH POC ABG pO2 Sodium 148 H Potassium 3.1 L Chloride 108.6 H Carbon Dioxide 21 L BUN 89 H Creatinine 1.8 H Glucose POC Glucose Lactic Acid 2.10 H* Calcium 8.3 L Phosphorus 5.00 H Magnesium AST Alkaline Phosphatase 161 H Troponin T Albumin 1.7 L Cholesterol LDL Cholesterol Direct HDL Cholesterol Urine WBC (Auto) Urine Creatinine Crossmatch 10/02/18 10/02/18 10/03/18 09:46 11:47 00:03 WBC RBC Hgb Hct MCH MCHC RDW Plt Count Lymph % (Auto) Eos % (Auto) Lymph # Lea # Eos # Seg Neutrophils % Seg Neuts % (Manual) Lymphocytes % (Manual) Seg Neutrophils # Seg Neutrophils # Man Lymphocytes # (Manual) POC ABG pH POC ABG pO2 Sodium Potassium Chloride Carbon Dioxide BUN Creatinine Glucose POC Glucose 112 H 106 H Lactic Acid Calcium Phosphorus Magnesium AST Alkaline Phosphatase Troponin T Albumin Cholesterol LDL Cholesterol Direct HDL Cholesterol Urine WBC (Auto) Urine Creatinine Crossmatch See Detail 10/03/18 10/03/18 10/03/18 06:06 06:45 06:45 WBC 17.3 H RBC 2.81 L Hgb 7.6 L Hct 24.1 L MCH 27 L MCHC 31 L RDW 18.4 H Plt Count 473 H Lymph % (Auto) 5.2 L Eos % (Auto) 4.6 H Lymph # 0.9 L Lea # Eos # 0.8 H Seg Neutrophils % 85.7 H Seg Neuts % (Manual) Lymphocytes % (Manual) Seg Neutrophils # 14.8 H Seg Neutrophils # Man Lymphocytes # (Manual) POC ABG pH POC ABG pO2 Sodium 148 H Potassium Chloride 112.1 H Carbon Dioxide 21 L BUN 79 H Creatinine 1.7 H Glucose 116 H POC Glucose 130 H Lactic Acid Calcium 7.9 L Phosphorus Magnesium AST Alkaline Phosphatase Troponin T Albumin Cholesterol LDL Cholesterol Direct HDL Cholesterol Urine WBC (Auto) Urine Creatinine Crossmatch 10/03/18 10/03/18 10/03/18 11:50 17:42 23:20 WBC RBC Hgb Hct MCH MCHC RDW Plt Count Lymph % (Auto) Eos % (Auto) Lymph # Lea # Eos # Seg Neutrophils % Seg Neuts % (Manual) Lymphocytes % (Manual) Seg Neutrophils # Seg Neutrophils # Man Lymphocytes # (Manual) POC ABG pH POC ABG pO2 Sodium Potassium Chloride Carbon Dioxide BUN Creatinine Glucose POC Glucose 126 H 118 H 106 H Lactic Acid Calcium Phosphorus Magnesium AST Alkaline Phosphatase Troponin T Albumin Cholesterol LDL Cholesterol Direct HDL Cholesterol Urine WBC (Auto) Urine Creatinine Crossmatch 10/04/18 10/04/18 10/04/18 05:22 07:00 07:00 WBC 14.8 H RBC 2.38 L Hgb 6.4 L Hct 20.5 L MCH 27 L MCHC 31 L RDW 18.2 H Plt Count Lymph % (Auto) 5.3 L Eos % (Auto) 9.5 H Lymph # 0.8 L Lea # Eos # 1.4 H Seg Neutrophils % 81.2 H Seg Neuts % (Manual) Lymphocytes % (Manual) Seg Neutrophils # 12.0 H Seg Neutrophils # Man Lymphocytes # (Manual) POC ABG pH POC ABG pO2 Sodium 148 H Potassium Chloride 112.0 H Carbon Dioxide BUN 73 H Creatinine Glucose 105 H POC Glucose 115 H Lactic Acid Calcium 8.1 L Phosphorus Magnesium AST Alkaline Phosphatase Troponin T Albumin 1.5 L Cholesterol LDL Cholesterol Direct HDL Cholesterol Urine WBC (Auto) Urine Creatinine Crossmatch Chest x-ray: image reviewed (no focal infiltrate; head obscures RUL evaluation) Allied health notes reviewed: nursing
[2018-10-04] MEDS: D5/0.45NS 1,000 ML IV SCH (13:19)
--- NOTE | 2018-10-04 14:45 | XRay Report ---
Comparison of the current study with the prior examination of 10/01/18 shows no appreciable interval change.
[2018-10-04] MEDS ORDERED: SODIUM BICARBONATE FEEDTUBE PRN (14:58)
[2018-10-04] MEDS ORDERED: PANCREAZE DR 10,500 UNIT FEEDTUBE PRN (14:58)
[2018-10-04] MEDS ORDERED: SIMPLE SYRUP FEEDTUBE PRN ×2 (14:58)
--- NOTE | 2018-10-04 16:23 | Progress Note ---
Assessment and Plan / Severe sepsis with shock, POA due to bacteremia, UTI and RUL PNA continue Sepsis Protocol: IV antibiotic therapy, IVF resuscitation therapy, follow final Blood cultures, s/p IV pressors The high probability of a clinically significant, sudden or life threatening deterioration of the [renal, cardiac, pulmonary,] system(s) required my full and direct attention, intervention and personal management. The aggregate critical care time was [65] minutes. This time is in addition to time spent performing reported procedures but includes the following: [x] Data Review and interpretation [x] Patient assessment and monitoring of vital signs [x] Documentation [x] Medication orders and management /GPC bacteremia - cont vanc, follow final cx, 2d echo /Anemia, s/p one unit blood transfusion, likely AOCD - hb dropped to 6.4 again today - transfuse another unit PRBC, ordered stool for occult blood / MÓNICA with vasomotor nephropathy IVF resuscitation therapy, monitor uop q shift, repeat bmp in am, nephrology consulted in ED. /Right upper lobe Pneumonia, suspect aspiration On Pneumonia Protocol: IV antibiotic therapy, supplemental oxygen, pulse oximetry, Sputum culture if sample available / Elevated troponin Likely due to sepsis with low blood pressure and renal failure Monitor with Serial cardiac enzymes, Cardiology consulted in ED, No EKG changes, supportive care, / UTI (lower urinary tract infection) IV antibiotic therapy, IV fluids, follow culture /Acute hypoxic Respiratory failure Likely due to underlying pneumonia Supplemental oxygen, nebulizer therapy, ABG, NIPPV as clinically indicated, pulse oximetry, /Moderate to severe protein calorie malnutrition - BMI 17.8, albumin 1.7 - consulted dietary, continue to feeding for now hypernatremia, on hypotonic saline Hypokalemia, repleted / DVT prophylaxis SCD to BLE while in bed, prophylactic heparin Brief History: 67 YO Male Longterm Facility Resident as [facility] with HTN, CVA, Obstructive Uropathy, Contracture, Decubitus Ulcers, ND, DM, OA, Seizure Disorder, COPD, Dementia, Debility, BPH presented to ED for evaluation, As per staff, the patient was found to have decreased responsiveness compared to baseline. Pt seen and evaluated in ED and found to have Sepsis secondary to UTI with concomitant RUL Pneumonia with a QSofa score of 8( GCS:3, MAP less than 70, Creatnine:2.1), Encephalopathy, and symptomatic anemia. Pt admitted to ICU and initiated on Sepsis protocol. Radiological data: Chest x-ray: Limited exam. Mild cardiomegaly. The lungs are grossly clear although there is poor visualization of the right upper lobe. Hospitalist Physical exam: GENERAL: Elderly male lying on bed appeared to be in no discomfort. It appears to be very lethargic and aphasic HEENT: Normocephalic. Atraumatic. No conjunctival congestion or icterus. Patient has moist mucous membranes. NECK: Supple. Trachea midline. CHEST/LUNGS: Clear to auscultated bilaterally, breathing nonlabored. No wheezes crackles or rhonchi. HEART/CARDIOVASCULAR: Regular in rate and rhythm. S1 and S2 positive. ABDOMEN: Abdomen is soft, nontender. Patient has normal bowel sounds. SKIN: There is no rash. Warm and dry. NEURO: Does not Follow command. MUSCULOSKELETAL: No joint effusion, generalized weakness unable to move extremities EXTRIMITY: No edema, no cyanosis or clubbing. PSYCH: Unable to assess. Subjective Date of service: 10/04/18 Principal diagnosis: Septic shock; Ac encephalopathy; Multiple decubitus ulcers; Ac renal failur Interval history: Patient seen and examined. Medical records and medication list reviewed. No acute event overnight noted by the RN. Patient unable to provide any history with severe dementia Patient on nasal cannula , on tube feeding, no sign of active bleeding off pressor since yesterday afternoon Discussed plan of care at bedside with RN. Objective - Constitutional Vitals: Vital Signs - 12hr 10/04/18 10/04/18 10/04/18 04:30 04:45 05:00 Temperature Pulse Rate 76 80 77 Pulse Rate [ From Monitor] Respiratory 23 23 22 Rate Respiratory Rate [ Generalized] Blood Pressure 102/54 110/59 109/56 O2 Sat by Pulse 97 97 97 Oximetry 10/04/18 10/04/18 10/04/18 05:15 05:30 05:45 Temperature Pulse Rate 78 79 79 Pulse Rate [ From Monitor] Respiratory 20 23 20 Rate Respiratory Rate [ Generalized] Blood Pressure 105/57 111/58 102/55 O2 Sat by Pulse 97 96 97 Oximetry 10/04/18 10/04/18 10/04/18 06:00 06:15 06:30 Temperature Pulse Rate 79 80 80 Pulse Rate [ From Monitor] Respiratory 25 H 23 25 H Rate Respiratory Rate [ Generalized] Blood Pressure 106/58 110/58 106/58 O2 Sat by Pulse 95 96 94 Oximetry 10/04/18 10/04/18 10/04/18 06:45 07:00 07:15 Temperature Pulse Rate 81 83 82 Pulse Rate [ From Monitor] Respiratory 24 22 24 Rate Respiratory Rate [ Generalized] Blood Pressure 111/57 111/57 112/61 O2 Sat by Pulse 94 96 96 Oximetry 10/04/18 10/04/18 10/04/18 07:30 07:45 07:52 Temperature Pulse Rate 81 81 Pulse Rate [ From Monitor] Respiratory 29 H 24 Rate Respiratory Rate [ Generalized] Blood Pressure 107/59 113/63 O2 Sat by Pulse 94 94 95 Oximetry 10/04/18 10/04/18 10/04/18 08:00 08:15 08:30 Temperature 98.6 F Pulse Rate 81 80 82 Pulse Rate [ 82 From Monitor] Respiratory 26 H 29 H 24 Rate Respiratory 24 Rate [ Generalized] Blood Pressure 111/60 118/63 110/62 O2 Sat by Pulse 96 95 96 Oximetry 10/04/18 10/04/18 10/04/18 08:45 09:00 09:15 Temperature Pulse Rate 82 83 82 Pulse Rate [ From Monitor] Respiratory 26 H 25 H 22 Rate Respiratory Rate [ Generalized] Blood Pressure 115/63 122/62 109/57 O2 Sat by Pulse 96 97 97 Oximetry 10/04/18 10/04/18 10/04/18 09:30 09:45 10:00 Temperature Pulse Rate 83 83 91 H Pulse Rate [ From Monitor] Respiratory 25 H 30 H 21 Rate Respiratory Rate [ Generalized] Blood Pressure 114/60 116/60 124/68 O2 Sat by Pulse 95 95 95 Oximetry 10/04/18 10/04/18 10/04/18 10:15 10:30 10:45 Temperature Pulse Rate 87 84 92 H Pulse Rate [ From Monitor] Respiratory 29 H 30 H 26 H Rate Respiratory Rate [ Generalized] Blood Pressure 117/64 112/60 112/60 O2 Sat by Pulse 96 96 94 Oximetry 10/04/18 10/04/18 10/04/18 11:00 11:15 11:31 Temperature Pulse Rate 88 90 87 Pulse Rate [ From Monitor] Respiratory 27 H 30 H 28 H Rate Respiratory Rate [ Generalized] Blood Pressure 126/68 126/68 126/68 O2 Sat by Pulse 96 95 96 Oximetry 10/04/18 10/04/1810/04/19 11:45 12:00 12:15 Temperature 98.2 F Pulse Rate 86 86 88 Pulse Rate [ From Monitor] Respiratory 29 H 32 H 36 H Rate Respiratory Rate [ Generalized] Blood Pressure 126/68 131/66 131/66 O2 Sat by Pulse 96 92 94 Oximetry 10/04/18 10/04/18 10/04/18 12:31 12:45 13:00 Temperature Pulse Rate 90 88 85 Pulse Rate [ From Monitor] Respiratory 31 H 34 H 30 H Rate Respiratory Rate [ Generalized] Blood Pressure 131/66 131/66 136/72 O2 Sat by Pulse 96 96 96 Oximetry 10/04/18 10/04/18 10/04/18 13:15 13:31 13:45 Temperature Pulse Rate 87 89 86 Pulse Rate [ From Monitor] Respiratory 32 H 26 H 31 H Rate Respiratory Rate [ Generalized] Blood Pressure 136/72 136/72 136/72 O2 Sat by Pulse 98 98 98 Oximetry 10/04/18 10/04/18 10/04/18 14:00 14:15 14:45 Temperature 98.9 F 98.7 F 99.1 F Pulse Rate 88 88 91 H Pulse Rate [ From Monitor] Respiratory 28 H 31 H 27 H Rate Respiratory Rate [ Generalized] Blood Pressure 139/68 129/67 133/68 O2 Sat by Pulse 96 96 97 Oximetry 10/04/18 15:15 Temperature 98.6 F Pulse Rate 88 Pulse Rate [ From Monitor] Respiratory 29 H Rate Respiratory Rate [ Generalized] Blood Pressure 137/73 O2 Sat by Pulse 100 Oximetry - Labs CBC & Chem 7: 10/04/18 07:00 10/04/18 07:00 Labs: Abnormal lab results 10/02/18 10/03/18 10/03/18 Range/Units 09:46 17:42 23:20 WBC (4.5-11.0) K/mm3 RBC (3.65-5.03) M/mm3 Hgb (11.8-15.2) gm/dl Hct (35.5-45.6) % MCH (28-32) pg MCHC (32-34) % RDW (13.2-15.2) % Lymph % (Auto) (13.4-35.0) % Eos % (Auto) (0.0-4.3) % Lymph # (1.2-5.4) K/mm3 Eos # (0.0-0.4) K/mm3 Seg Neutrophils % (40.0-70.0) % Seg Neutrophils # (1.8-7.7) K/mm3 Sodium (137-145) mmol/L Chloride (98-107) mmol/L BUN (9-20) mg/dL Glucose (75-100) mg/dL POC Glucose 118 H 106 H (70-105) Calcium (8.4-10.2) mg/dL Albumin (3.9-5) g/dL Crossmatch See Detail 10/04/18 10/04/18 10/04/18 Range/Units 05:22 07:00 07:00 WBC 14.8 H (4.5-11.0) K/mm3 RBC 2.38 L (3.65-5.03) M/mm3 Hgb 6.4 L (11.8-15.2) gm/dl Hct 20.5 L (35.5-45.6) % MCH 27 L (28-32) pg MCHC 31 L (32-34) % RDW 18.2 H (13.2-15.2) % Lymph % (Auto) 5.3 L (13.4-35.0) % Eos % (Auto) 9.5 H (0.0-4.3) % Lymph # 0.8 L (1.2-5.4) K/mm3 Eos # 1.4 H (0.0-0.4) K/mm3 Seg Neutrophils % 81.2 H (40.0-70.0) % Seg Neutrophils # 12.0 H (1.8-7.7) K/mm3 Sodium 148 H (137-145) mmol/L Chloride 112.0 H (98-107) mmol/L BUN 73 H (9-20) mg/dL Glucose 105 H (75-100) mg/dL POC Glucose 115 H (70-105) Calcium 8.1 L (8.4-10.2) mg/dL Albumin 1.5 L (3.9-5) g/dL Crossmatch 10/04/18 Range/Units 12:35 WBC (4.5-11.0) K/mm3 RBC (3.65-5.03) M/mm3 Hgb (11.8-15.2) gm/dl Hct (35.5-45.6) % MCH (28-32) pg MCHC (32-34) % RDW (13.2-15.2) % Lymph % (Auto) (13.4-35.0) % Eos % (Auto) (0.0-4.3) % Lymph # (1.2-5.4) K/mm3 Eos # (0.0-0.4) K/mm3 Seg Neutrophils % (40.0-70.0) % Seg Neutrophils # (1.8-7.7) K/mm3 Sodium (137-145) mmol/L Chloride (98-107) mmol/L BUN (9-20) mg/dL Glucose (75-100) mg/dL POC Glucose 109 H (70-105) Calcium (8.4-10.2) mg/dL Albumin (3.9-5) g/dL Crossmatch
[2018-10-04] MEDS: PERCOCET 5/325 PO PRN ×2 (17:06→22:04)
[2018-10-05] MEDS: PERCOCET 5/325 PO PRN ×2 (04:21→19:00)
[2018-10-05 05:07] LABS: BUN/Creatinine Ratio 49; Blood Urea Nitrogen 64 mg/dL (9-20); Calcium 8.3 mg/dL (8.4-10.2); Hemolysis Index 0
[2018-10-05 05:31] LABS: Basophils % (Auto) 0.2 % (0.0-1.8); Eosinophils # (Auto) 0.9 K/mm3 (0.0-0.4); Eosinophils % (Auto) 6.4 % (0.0-4.3); Hematocrit 25.2 % (35.5-45.6); Hemoglobin 8.2 gm/dl (11.8-15.2); Lymphocytes # (Auto) 0.9 K/mm3 (1.2-5.4); Lymphocytes % (Auto) 6.6 % (13.4-35.0); Mean Corpuscular HGB Conc 32 % (32-34); Mean Corpuscular Volume 86 fl (84-94); Monocytes # (Auto) 0.6 K/mm3 (0.0-0.8); Monocytes % (Auto) 4.1 % (0.0-7.3); Platelet Count 414 K/mm3 (140-440); Red Blood Count 2.94 M/mm3 (3.65-5.03); Red Cell Distribution Width 17.9 % (13.2-15.2)
--- NOTE | 2018-10-05 07:07 | Progress Note ---
Assessment and Plan - Severe Sepsis with septic shock, off vasopressor support -GPC bacteremia -Acute encephalopathy -Multiple decubitus ulcers -Acute metabolic encephaloapthy -Hypernatremia -Recurrent CAUTI -Lactic acidosis -Acute renal failure- prerenal/vasomotor nephropathy -Change IVF to D51/2NSaline at 75ml/hour -Monitor renal indices closely -Avoid nephrotoxic agents, adjust all medications for CrCL -Strict intake and output monitoring -Vasopressor support for MAP < 65 -Wean supplemental oxygen for O2 sats>90% -VTE prophylaxis -Antibiotics per ID -Tolerating tube feedings -Continue tube feedings with aspiration precautions - Continue free water flushes to treat hypernatremia. -Accuchecks with glycemic control. Target glucose of 140-180 mg/dL -Bronchodilators with pulmonary hygiene per RT -Wound care per WOCN -Discontinue femoral CVC, place PICC line -Influenza and pneumonia vaccination per protocol ..care plan discussed at length with RN/RT at the bedside ...care plan discussed in detail in ICU-IDT rounds PROGNOSIS: GUARDED/POOR CONDITION: CRITICAL CODE STATUS: FULL CODE The high probability of a clinically significant, sudden or life-threatening deterioration of the [cardiovascular, neurology, renal] system(s) required my full and direct attention, intervention and personal management. The aggregate critical care time was [35] minutes without overlap. Time includes spent on; [x] Data Review and interpretation [x] Patient assessment and monitoring of vital signs [x] Documentation [x] Medication orders and management Subjective Date of service: 10/05/18 Principal diagnosis: Septic shock; Ac encephalopathy; Multiple decubitus ulcers; Ac renal failur Interval history: Patient is seen today for: Severe Sepsis with septic shock; GPC bacteremia; Acute encephalopathy; Multiple decubitus ulcers; Acute metabolic encephaloapthy; Hypernatremia; Recurrent CAUTI; Lactic acidosis; Acute renal failure- prerenal/vasomotor nephropathy Seen and examined at bedside; 24hour events reviewed; nursing and respiratory care staff consulted; no adverse overnight events reported to me; resting peacefully in bed; Responded "hello" to my greeting "Johny, Mr Posey"off levophed ,no N/V/F/C; no gross bleeding, more awake and alert Objective - Exam Narrative Exam: General appearance: Alert. No acute distress, chronically ill looking Eyes: anicteric sclerae, moist conjunctivae; no lid-lag; PERRLA. HENT: Atraumatic, normocephalic; oropharynx limited. Neck: Trachea midline; supple, no thyromegaly or lymphadenopathy. Lungs: Decreased AE bilaterally with scattered rhonchi. CV: RRR, S1,S2. Abdomen: BS present in all 4 quadrants, Soft, non-tender; PEG in place. : Condom catheter Extremities: Bilateral contracted legs, multiple wounds covered. Right groin CVC Skin: multiple skin tears Psych: moans, unable to assess Neuro: alert, awake, not obeying commands Vital Signs - 12hr 10/04/18 10/04/18 10/04/18 19:15 19:31 19:45 Temperature Pulse Rate 95 H 96 H 94 H Pulse Rate [ Anterior Bilateral] Pulse Rate [ From Monitor] Respiratory 47 H 32 H 33 H Rate Respiratory Rate [Anterior Bilateral] Blood Pressure 127/64 127/64 127/64 O2 Sat by Pulse 95 97 97 Oximetry 10/04/18 10/04/18 10/04/18 19:59 20:00 20:15 Temperature 97.8 F Pulse Rate 92 H 92 H Pulse Rate [ Anterior Bilateral] Pulse Rate [ 95 H From Monitor] Respiratory 30 H 52 H Rate Respiratory Rate [Anterior Bilateral] Blood Pressure 130/65 130/65 O2 Sat by Pulse 95 93 Oximetry 10/04/18 10/04/18 10/04/18 20:31 20:45 21:00 Temperature Pulse Rate 94 H 92 H 97 H Pulse Rate [ Anterior Bilateral] Pulse Rate [ From Monitor] Respiratory 35 H 41 H 28 H Rate Respiratory Rate [Anterior Bilateral] Blood Pressure 130/65 130/65 122/68 O2 Sat by Pulse 91 89 87 Oximetry 10/04/18 10/04/18 10/04/18 21:02 21:05 21:15 Temperature Pulse Rate 99 H Pulse Rate [ 97 H Anterior Bilateral] Pulse Rate [ From Monitor] Respiratory 35 H Rate Respiratory 26 H Rate [Anterior Bilateral] Blood Pressure 122/68 O2 Sat by Pulse 90 87 Oximetry 10/04/18 10/04/18 10/04/18 21:31 21:45 22:00 Temperature Pulse Rate 99 H 99 H 85 Pulse Rate [ Anterior Bilateral] Pulse Rate [ From Monitor] Respiratory 32 H 41 H 24 Rate Respiratory Rate [Anterior Bilateral] Blood Pressure 122/68 122/68 114/67 O2 Sat by Pulse 93 95 94 Oximetry 10/04/18 10/04/18 10/04/18 22:15 22:22 22:31 Temperature Pulse Rate 99 H 97 H 98 H Pulse Rate [ Anterior Bilateral] Pulse Rate [ From Monitor] Respiratory 32 H 28 H 23 Rate Respiratory Rate [Anterior Bilateral] Blood Pressure 114/67 114/67 114/67 O2 Sat by Pulse 96 97 97 Oximetry 10/04/18 10/04/18 10/04/18 22:35 22:45 23:00 Temperature Pulse Rate 96 H 97 H 99 H Pulse Rate [ Anterior Bilateral] Pulse Rate [ From Monitor] Respiratory 29 H 33 H 33 H Rate Respiratory Rate [Anterior Bilateral] Blood Pressure 114/67 114/67 122/68 O2 Sat by Pulse 96 96 97 Oximetry 10/04/18 10/04/18 10/04/18 23:15 23:26 23:31 Temperature 99.4 F Pulse Rate 99 H 97 H Pulse Rate [ Anterior Bilateral] Pulse Rate [ From Monitor] Respiratory 31 H 25 H Rate Respiratory Rate [Anterior Bilateral] Blood Pressure 122/68 122/68 O2 Sat by Pulse 98 98 Oximetry 10/04/18 10/05/18 10/05/18 23:45 00:00 00:15 Temperature Pulse Rate 95 H 93 H 91 H Pulse Rate [ Anterior Bilateral] Pulse Rate [ 95 H From Monitor] Respiratory 22 25 H 25 H Rate Respiratory Rate [Anterior Bilateral] Blood Pressure 122/68 117/65 117/65 O2 Sat by Pulse 99 95 99 Oximetry 10/05/18 10/05/18 10/05/18 00:31 00:45 01:00 Temperature Pulse Rate 89 87 84 Pulse Rate [ Anterior Bilateral] Pulse Rate [ From Monitor] Respiratory 27 H 28 H 16 Rate Respiratory Rate [Anterior Bilateral] Blood Pressure 117/65 117/65 122/63 O2 Sat by Pulse 99 99 97 Oximetry 10/05/18 10/05/18 10/05/18 01:15 01:31 01:45 Temperature Pulse Rate 82 84 75 Pulse Rate [ Anterior Bilateral] Pulse Rate [ From Monitor] Respiratory 30 H 24 21 Rate Respiratory Rate [Anterior Bilateral] Blood Pressure 122/63 122/63 122/63 O2 Sat by Pulse 99 100 100 Oximetry 10/05/18 10/05/18 10/05/18 02:00 02:15 02:31 Temperature Pulse Rate 80 80 76 Pulse Rate [ Anterior Bilateral] Pulse Rate [ From Monitor] Respiratory 28 H 21 22 Rate Respiratory Rate [Anterior Bilateral] Blood Pressure 117/59 117/59 117/59 O2 Sat by Pulse 99 100 100 Oximetry 10/05/18 10/05/18 10/05/18 02:45 03:00 03:15 Temperature Pulse Rate 75 77 78 Pulse Rate [ Anterior Bilateral] Pulse Rate [ From Monitor] Respiratory 22 20 25 H Rate Respiratory Rate [Anterior Bilateral] Blood Pressure 117/59 123/62 123/62 O2 Sat by Pulse 100 99 100 Oximetry 10/05/18 03:17 Temperature 100.2 F H Pulse Rate Pulse Rate [ Anterior Bilateral] Pulse Rate [ From Monitor] Respiratory Rate Respiratory Rate [Anterior Bilateral] Blood Pressure O2 Sat by Pulse Oximetry CBC and BMP: 10/08/18 11:09 10/09/18 05:48 ABG, PT/INR, D-dimer: ABG POC ABG pH 7.480 (7.35-7.45) H 10/01/18 18:12 POC ABG pO2 64 (80-105) L 10/01/18 18:12 POC ABG HCO3 21.0 (22-26 mml/L) 10/01/18 18:12 POC ABG Total CO2 22 (23-27mmol/L) 10/01/18 18:12 POC ABG O2 Sat 94 10/01/18 18:12 Abnormal lab findings: Abnormal Labs 10/01/18 10/01/18 10/01/18 14:29 14:29 15:13 WBC 18.5 H RBC 2.68 L Hgb 7.3 L Hct 23.1 L MCH 27 L MCHC 31 L RDW 19.3 H Plt Count 522 H Lymph % (Auto) 6.7 L Eos % (Auto) Lymph # [place] # 1.2 H Eos # Seg Neutrophils % 85.0 H Seg Neuts % (Manual) Lymphocytes % (Manual) Seg Neutrophils # 15.7 H Seg Neutrophils # Man Lymphocytes # (Manual) POC ABG pH POC ABG pO2 Sodium 148 H Potassium 3.3 L Chloride Carbon Dioxide BUN 98 H Creatinine 2.0 H Glucose 142 H POC Glucose Lactic Acid Calcium Phosphorus Magnesium AST Alkaline Phosphatase Troponin T 0.361 H* Albumin Cholesterol 36 L LDL Cholesterol Direct 6 L HDL Cholesterol 21 L Urine WBC (Auto) > 182.0 H Urine Creatinine Crossmatch 10/01/18 10/01/18 10/01/18 15:15 15:15 17:03 WBC RBC Hgb Hct MCH MCHC RDW Plt Count Lymph % (Auto) Eos % (Auto) Lymph # [place] # Eos # Seg Neutrophils % Seg Neuts % (Manual) Lymphocytes % (Manual) Seg Neutrophils # Seg Neutrophils # Man Lymphocytes # (Manual) POC ABG pH POC ABG pO2 Sodium 150 H Potassium Chloride Carbon Dioxide BUN 94 H Creatinine 2.1 H Glucose 132 H POC Glucose Lactic Acid 2.60 H* 2.20 H* Calcium 7.8 L Phosphorus Magnesium AST 47 H Alkaline Phosphatase 179 H Troponin T Albumin 2.1 L Cholesterol LDL Cholesterol Direct HDL Cholesterol Urine WBC (Auto) Urine Creatinine Crossmatch 10/01/18 10/01/18 10/01/18 18:12 18:23 18:23 WBC RBC Hgb Hct MCH MCHC RDW Plt Count Lymph % (Auto) Eos % (Auto) Lymph # [place] # Eos # Seg Neutrophils % Seg Neuts % (Manual) Lymphocytes % (Manual) Seg Neutrophils # Seg Neutrophils # Man Lymphocytes # (Manual) POC ABG pH 7.480 H POC ABG pO2 64 L Sodium Potassium Chloride Carbon Dioxide BUN Creatinine Glucose POC Glucose Lactic Acid Calcium Phosphorus Magnesium 3.30 H AST Alkaline Phosphatase Troponin T 0.378 H* Albumin Cholesterol LDL Cholesterol Direct HDL Cholesterol Urine WBC (Auto) Urine Creatinine Crossmatch 10/01/18 10/01/18 10/01/18 18:48 21:20 23:48 WBC RBC Hgb Hct MCH MCHC RDW Plt Count Lymph % (Auto) Eos % (Auto) Lymph # [place] # Eos # Seg Neutrophils % Seg Neuts % (Manual) Lymphocytes % (Manual) Seg Neutrophils # Seg Neutrophils # Man Lymphocytes # (Manual) POC ABG pH POC ABG pO2 Sodium Potassium Chloride Carbon Dioxide BUN Creatinine Glucose POC Glucose Lactic Acid 2.30 H* 2.70 H* Calcium Phosphorus Magnesium AST Alkaline Phosphatase Troponin T 0.336 H* Albumin Cholesterol LDL Cholesterol Direct HDL Cholesterol Urine WBC (Auto) Urine Creatinine Crossmatch 10/01/18 10/02/18 10/02/18 23:48 04:45 04:45 WBC 18.3 H RBC 2.40 L Hgb 6.4 L Hct 20.4 L MCH 27 L MCHC 31 L RDW 19.1 H Plt Count 462 H Lymph % (Auto) Eos % (Auto) Lymph # [place] # Eos # Seg Neutrophils % Seg Neuts % (Manual) 78.0 H Lymphocytes % (Manual) 5.0 L Seg Neutrophils # Seg Neutrophils # Man 14.3 H Lymphocytes # (Manual) 0.9 L POC ABG pH POC ABG pO2 Sodium Potassium Chloride Carbon Dioxide BUN Creatinine Glucose POC Glucose Lactic Acid 2.50 H* Calcium Phosphorus Magnesium AST Alkaline Phosphatase Troponin T Albumin Cholesterol LDL Cholesterol Direct HDL Cholesterol Urine WBC (Auto) Urine Creatinine 74.7 H Crossmatch 10/02/18 10/02/18 10/02/18 04:45 04:45 04:45 WBC RBC Hgb Hct MCH MCHC RDW Plt Count Lymph % (Auto) Eos % (Auto) Lymph # [place] # Eos # Seg Neutrophils % Seg Neuts % (Manual) Lymphocytes % (Manual) Seg Neutrophils # Seg Neutrophils # Man Lymphocytes # (Manual) POC ABG pH POC ABG pO2 Sodium 148 H Potassium 3.1 L Chloride 108.6 H Carbon Dioxide 21 L BUN 89 H Creatinine 1.8 H Glucose POC Glucose Lactic Acid 2.10 H* Calcium 8.3 L Phosphorus 5.00 H Magnesium AST Alkaline Phosphatase 161 H Troponin T Albumin 1.7 L Cholesterol LDL Cholesterol Direct HDL Cholesterol Urine WBC (Auto) Urine Creatinine Crossmatch 10/02/18 10/02/18 10/03/18 09:46 11:47 00:03 WBC RBC Hgb Hct MCH MCHC RDW Plt Count Lymph % (Auto) Eos % (Auto) Lymph # [place] # Eos # Seg Neutrophils % Seg Neuts % (Manual) Lymphocytes % (Manual) Seg Neutrophils # Seg Neutrophils # Man Lymphocytes # (Manual) POC ABG pH POC ABG pO2 Sodium Potassium Chloride Carbon Dioxide BUN Creatinine Glucose POC Glucose 112 H 106 H Lactic Acid Calcium Phosphorus Magnesium AST Alkaline Phosphatase Troponin T Albumin Cholesterol LDL Cholesterol Direct HDL Cholesterol Urine WBC (Auto) Urine Creatinine Crossmatch See Detail 10/03/18 10/03/18 10/03/18 06:06 06:45 06:45 WBC 17.3 H RBC 2.81 L Hgb 7.6 L Hct 24.1 L MCH 27 L MCHC 31 L RDW 18.4 H Plt Count 473 H Lymph % (Auto) 5.2 L Eos % (Auto) 4.6 H Lymph # 0.9 L [place] # Eos # 0.8 H Seg Neutrophils % 85.7 H Seg Neuts % (Manual) Lymphocytes % (Manual) Seg Neutrophils # 14.8 H Seg Neutrophils # Man Lymphocytes # (Manual) POC ABG pH POC ABG pO2 Sodium 148 H Potassium Chloride 112.1 H Carbon Dioxide 21 L BUN 79 H Creatinine 1.7 H Glucose 116 H POC Glucose 130 H Lactic Acid Calcium 7.9 L Phosphorus Magnesium AST Alkaline Phosphatase Troponin T Albumin Cholesterol LDL Cholesterol Direct HDL Cholesterol Urine WBC (Auto) Urine Creatinine Crossmatch 10/03/18 10/03/18 10/03/18 11:50 17:42 23:20 WBC RBC Hgb Hct MCH MCHC RDW Plt Count Lymph % (Auto) Eos % (Auto) Lymph # [place] # Eos # Seg Neutrophils % Seg Neuts % (Manual) Lymphocytes % (Manual) Seg Neutrophils # Seg Neutrophils # Man Lymphocytes # (Manual) POC ABG pH POC ABG pO2 Sodium Potassium Chloride Carbon Dioxide BUN Creatinine Glucose POC Glucose 126 H 118 H 106 H Lactic Acid Calcium Phosphorus Magnesium AST Alkaline Phosphatase Troponin T Albumin Cholesterol LDL Cholesterol Direct HDL Cholesterol Urine WBC (Auto) Urine Creatinine Crossmatch 10/04/18 10/04/18 10/04/18 05:22 07:00 07:00 WBC 14.8 H RBC 2.38 L Hgb 6.4 L Hct 20.5 L MCH 27 L MCHC 31 L RDW 18.2 H Plt Count Lymph % (Auto) 5.3 L Eos % (Auto) 9.5 H Lymph # 0.8 L [place] # Eos # 1.4 H Seg Neutrophils % 81.2 H Seg Neuts % (Manual) Lymphocytes % (Manual) Seg Neutrophils # 12.0 H Seg Neutrophils # Man Lymphocytes # (Manual) POC ABG pH POC ABG pO2 Sodium 148 H Potassium Chloride 112.0 H Carbon Dioxide BUN 73 H Creatinine Glucose 105 H POC Glucose 115 H Lactic Acid Calcium 8.1 L Phosphorus Magnesium AST Alkaline Phosphatase Troponin T Albumin 1.5 L Cholesterol LDL Cholesterol Direct HDL Cholesterol Urine WBC (Auto) Urine Creatinine Crossmatch 10/04/18 10/04/18 10/05/18 12:35 18:28 04:20 WBC 14.1 H RBC 2.94 L Hgb 8.2 L Hct 25.2 L MCH MCHC RDW 17.9 H Plt Count Lymph % (Auto) 6.6 L Eos % (Auto) 6.4 H Lymph # 0.9 L [place] # Eos # 0.9 H Seg Neutrophils % 82.7 H Seg Neuts % (Manual) Lymphocytes % (Manual) Seg Neutrophils # 11.6 H Seg Neutrophils # Man Lymphocytes # (Manual) POC ABG pH POC ABG pO2 Sodium Potassium Chloride Carbon Dioxide BUN Creatinine Glucose POC Glucose 109 H 109 H Lactic Acid Calcium Phosphorus Magnesium AST Alkaline Phosphatase Troponin T Albumin Cholesterol LDL Cholesterol Direct HDL Cholesterol Urine WBC (Auto) Urine Creatinine Crossmatch 10/05/18 04:20 WBC RBC Hgb Hct MCH MCHC RDW Plt Count Lymph % (Auto) Eos % (Auto) Lymph # [place] # Eos # Seg Neutrophils % Seg Neuts % (Manual) Lymphocytes % (Manual) Seg Neutrophils # Seg Neutrophils # Man Lymphocytes # (Manual) POC ABG pH POC ABG pO2 Sodium Potassium Chloride 110.0 H Carbon Dioxide 21 L BUN 64 H Creatinine Glucose POC Glucose Lactic Acid Calcium 8.3 L Phosphorus Magnesium AST Alkaline Phosphatase Troponin T Albumin Cholesterol LDL Cholesterol Direct HDL Cholesterol Urine WBC (Auto) Urine Creatinine Crossmatch Chest x-ray: image reviewed Allied health notes reviewed: nursing
--- NOTE | 2018-10-05 08:07 | Progress Note ---
Assessment and Plan 1. Acute kidney injury: Vasomotor / hemodynamic MÓNICA in the setting of hypotension, sepsis and volume depletion. Continue IV fluids. Renal function is improving. Monitor renal function. Renal prognosis is guarded. Avoid nephrotoxic agents. Meds dosage based on GFR. 2. FEN: Hypernatremia, improving on 1/2 NS. Monitor lytes. 3. Sepsis with shock: Levophed. 4. Anemia: PRBC. 5. Multiple decubitus ulcers. 6. Encephalopathy. Subjective Date of service: 10/05/18 Principal diagnosis: Septic shock; Ac encephalopathy; Multiple decubitus ulcers; Ac renal failur Interval history: Patient was seen and examined at the bedside. Objective - Vital Signs Vital signs: Vital Signs - 12hr 10/04/18 10/04/18 10/04/18 20:15 20:31 20:45 Temperature Pulse Rate 92 H 94 H 92 H Pulse Rate [ Anterior Bilateral] Pulse Rate [ From Monitor] Respiratory 52 H 35 H 41 H Rate Respiratory Rate [Anterior Bilateral] Blood Pressure 130/65 130/65 130/65 O2 Sat by Pulse 93 91 89 Oximetry 10/04/18 10/04/18 10/04/18 21:00 21:02 21:05 Temperature Pulse Rate 97 H Pulse Rate [ 97 H Anterior Bilateral] Pulse Rate [ From Monitor] Respiratory 28 H Rate Respiratory 26 H Rate [Anterior Bilateral] Blood Pressure 122/68 O2 Sat by Pulse 87 90 Oximetry 10/04/18 10/04/18 10/04/18 21:15 21:31 21:45 Temperature Pulse Rate 99 H 99 H 99 H Pulse Rate [ Anterior Bilateral] Pulse Rate [ From Monitor] Respiratory 35 H 32 H 41 H Rate Respiratory Rate [Anterior Bilateral] Blood Pressure 122/68 122/68 122/68 O2 Sat by Pulse 87 93 95 Oximetry 10/04/18 10/04/18 10/04/18 22:00 22:15 22:22 Temperature Pulse Rate 85 99 H 97 H Pulse Rate [ Anterior Bilateral] Pulse Rate [ From Monitor] Respiratory 24 32 H 28 H Rate Respiratory Rate [Anterior Bilateral] Blood Pressure 114/67 114/67 114/67 O2 Sat by Pulse 94 96 97 Oximetry 10/04/18 10/04/18 10/04/18 22:31 22:35 22:45 Temperature Pulse Rate 98 H 96 H 97 H Pulse Rate [ Anterior Bilateral] Pulse Rate [ From Monitor] Respiratory 23 29 H 33 H Rate Respiratory Rate [Anterior Bilateral] Blood Pressure 114/67 114/67 114/67 O2 Sat by Pulse 97 96 96 Oximetry 10/04/18 10/04/18 10/04/18 23:00 23:15 23:26 Temperature 99.4 F Pulse Rate 99 H 99 H Pulse Rate [ Anterior Bilateral] Pulse Rate [ From Monitor] Respiratory 33 H 31 H Rate Respiratory Rate [Anterior Bilateral] Blood Pressure 122/68 122/68 O2 Sat by Pulse 97 98 Oximetry 10/04/18 10/04/18 10/05/18 23:31 23:45 00:00 Temperature Pulse Rate 97 H 95 H 93 H Pulse Rate [ Anterior Bilateral] Pulse Rate [ 95 H From Monitor] Respiratory 25 H 22 25 H Rate Respiratory Rate [Anterior Bilateral] Blood Pressure 122/68 122/68 117/65 O2 Sat by Pulse 98 99 95 Oximetry 10/05/18 10/05/18 10/05/18 00:15 00:31 00:45 Temperature Pulse Rate 91 H 89 87 Pulse Rate [ Anterior Bilateral] Pulse Rate [ From Monitor] Respiratory 25 H 27 H 28 H Rate Respiratory Rate [Anterior Bilateral] Blood Pressure 117/65 117/65 117/65 O2 Sat by Pulse 99 99 99 Oximetry 10/05/18 10/05/18 10/05/18 01:00 01:15 01:31 Temperature Pulse Rate 84 82 84 Pulse Rate [ Anterior Bilateral] Pulse Rate [ From Monitor] Respiratory 16 30 H 24 Rate Respiratory Rate [Anterior Bilateral] Blood Pressure 122/63 122/63 122/63 O2 Sat by Pulse 97 99 100 Oximetry 10/05/18 10/05/18 10/05/18 01:45 02:00 02:15 Temperature Pulse Rate 75 80 80 Pulse Rate [ Anterior Bilateral] Pulse Rate [ From Monitor] Respiratory 21 28 H 21 Rate Respiratory Rate [Anterior Bilateral] Blood Pressure 122/63 117/59 117/59 O2 Sat by Pulse 100 99 100 Oximetry 10/05/18 10/05/18 10/05/18 02:31 02:45 03:00 Temperature Pulse Rate 76 75 77 Pulse Rate [ Anterior Bilateral] Pulse Rate [ From Monitor] Respiratory 22 22 20 Rate Respiratory Rate [Anterior Bilateral] Blood Pressure 117/59 117/59 123/62 O2 Sat by Pulse 100 100 99 Oximetry 10/05/18 10/05/18 10/05/18 03:15 03:17 03:31 Temperature 100.2 F H Pulse Rate 78 76 Pulse Rate [ Anterior Bilateral] Pulse Rate [ From Monitor] Respiratory 25 H 19 Rate Respiratory Rate [Anterior Bilateral] Blood Pressure 123/62 123/62 O2 Sat by Pulse 100 100 Oximetry 10/05/18 10/05/18 10/05/18 03:45 04:00 04:01 Temperature Pulse Rate 95 H 96 H Pulse Rate [ Anterior Bilateral] Pulse Rate [ 95 H From Monitor] Respiratory 35 H 30 H 27 H Rate Respiratory Rate [Anterior Bilateral] Blood Pressure 123/62 143/73 O2 Sat by Pulse 99 95 96 Oximetry 10/05/18 10/05/18 10/05/18 04:15 04:31 04:45 Temperature Pulse Rate 95 H 96 H 90 Pulse Rate [ Anterior Bilateral] Pulse Rate [ From Monitor] Respiratory 40 H 45 H 29 H Rate Respiratory Rate [Anterior Bilateral] Blood Pressure 143/73 143/73 143/73 O2 Sat by Pulse 96 97 98 Oximetry 10/05/18 10/05/18 10/05/18 05:00 05:15 05:31 Temperature Pulse Rate 87 86 84 Pulse Rate [ Anterior Bilateral] Pulse Rate [ From Monitor] Respiratory 27 H 30 H 22 Rate Respiratory Rate [Anterior Bilateral] Blood Pressure 119/63 119/63 119/63 O2 Sat by Pulse 95 98 99 Oximetry 10/05/18 10/05/18 10/05/18 05:45 06:00 06:15 Temperature Pulse Rate 82 81 79 Pulse Rate [ Anterior Bilateral] Pulse Rate [ From Monitor] Respiratory 21 22 21 Rate Respiratory Rate [Anterior Bilateral] Blood Pressure 119/63 118/64 118/64 O2 Sat by Pulse 99 96 98 Oximetry 10/05/18 10/05/18 10/05/18 06:31 06:45 07:00 Temperature Pulse Rate 77 78 76 Pulse Rate [ Anterior Bilateral] Pulse Rate [ From Monitor] Respiratory 23 22 21 Rate Respiratory Rate [Anterior Bilateral] Blood Pressure 118/64 118/64 113/58 O2 Sat by Pulse 99 98 98 Oximetry 10/05/18 07:15 Temperature Pulse Rate 78 Pulse Rate [ Anterior Bilateral] Pulse Rate [ From Monitor] Respiratory 23 Rate Respiratory Rate [Anterior Bilateral] Blood Pressure 113/58 O2 Sat by Pulse 100 Oximetry - General Appearance General appearance: well-developed, appears stated age, other (not in distress) EENT: ATNC, PERRL Respiratory: Present: Clear to Ascultation Cardiology: regular, S1S2, no murmurs Gastrointestinal: normoactive bowel sounds, no tenderness, no distended, other (PEG tube noted) Integumentary: ulcer, decubiti Neurologic: other (not following any command, alert, non-verbal) Musculoskeletal: other (multiple contractures noted) - Lab 10/06/18 05:15 10/06/18 05:15 Most recent lab results Calcium 8.3 mg/dL (8.4-10.2) L 10/05/18 04:20 Phosphorus 5.00 mg/dL (2.5-4.5) H 10/02/18 04:45 Magnesium 3.30 mg/dL (1.7-2.3) H 10/01/18 18:23 74.7 mg/dL (0.1-20.0) H 10/02/18 04:45 21 mmol/L 10/02/18 04:45 Medications & Allergies - Medications Allergies/Adverse Reactions: Allergies lisinopril Allergy (Verified 10/01/18 15:17) Unknown tramadol Allergy (Verified 07/29/18 18:39) Unknown Home Medications: Home Medications Medication Instructions Recorded Confirmed Last Taken Type Multivit-Min/Iron Fum/Folic AC 1 each PO DAILY 03/24/18 10/03/18 Unknown History [Dqezi-Zrauhyw-Bxfjsdfl Tablet] Acetaminophen 650 mg NGTUBE Q6H PRN 07/30/18 10/03/18 Unknown History AtorvaSTATin [Lipitor] 40 mg NGTUBE QHS 07/30/18 10/03/18 Unknown History Dutasteride 0.5 mg NGTUBE QAM 07/30/18 10/03/18 Unknown History Ipratropium/Albuterol Sulfate 1 ampul IH BID 07/30/18 10/03/18 Unknown History [DUONEB *Not for PRN Use*] Lisinopril [Zestril TAB] 40 mg PO QDAY 07/30/18 10/03/18 Unknown History Tamsulosin [Flomax] 0.4 mg PO QDAY 07/30/18 10/03/18 Unknown History Vit C/Ascorbate Calcium,Sodium 500 mg NGTUBE BID 07/30/18 10/03/18 Unknown History [Vitamin C 500 mg/15 ml Liquid] Zinc Sulfate 220 mg NGTUBE QDAY 07/30/18 10/03/18 Unknown History levETIRAcetam [Keppra INJ] 500 mg PO Q12H 07/30/18 10/03/18 Unknown History Carvedilol [Coreg] 3.125 mg PO BID #60 tablet 08/23/18 10/03/18 Unknown Rx Furosemide [Lasix] 20 mg PO QDAY #30 tablet 08/23/18 10/03/18 Unknown Rx Oxycodone HCl/Acetaminophen 1 each PO Q8HR PRN #14 tablet 08/23/18 10/03/18 Unknown Rx [Percocet 7.5/325 mg] Phosphorus #1 [K-Phos Neutral] 250 mg PO QID #30 tablet 08/23/18 10/03/18 Unknown Rx hydroCHLOROthiazide [HCTZ] 12.5 mg PO QDAY #30 tablet 08/23/18 10/03/18 Unknown Rx Active Medications: Generic Name Dose Route Start Last Admin Trade Name Freq PRN Reason Stop Dose Admin Acetaminophen 650 mg 10/01/18 15:32 Tylenol FEEDTUBE Q6H PRN Pain, Moderate (4-6) Albuterol 2.5 mg 10/01/18 17:40 10/04/18 21:02 Proventil IH 2.5 mg Q3HRT PRN Administration Shortness Of Breath Lipase/Protease/Amylase 1 each 10/04/18 14:[address] 10,500 Unit FEEDTUBE PRN PRN For Clogged Feeding Tube Ascorbic Acid 500 mg 10/04/18 10:00 10/04/18 21:10 Vitamin C FEEDTUBE 500 mg BID NORA Administration Atorvastatin Calcium 40 mg 10/01/18 22:00 10/04/18 21:10 Lipitor FEEDTUBE 40 mg QHS NORA Administration Famotidine 20 mg 10/03/18 12:00 10/04/18 10:05 Pepcid PO 20 mg DAILY NORA Administration Heparin Sodium (Porcine) 5,000 unit 10/01/18 22:00 10/04/18 21:11 Heparin SUB-Q 5,000 unit Q12HR NORA Administration Meropenem 500 mg in 50 mls @ 50 mls/hr 10/02/18 11:00 10/04/18 21:51 Merrem/Ns 500 Mg/50 Ml IV 10/06/18 23:59 50 mls/hr Q12HR NORA Administration Vasopressin 20 unit/ Sodium 101 mls @ 9.09 mls/hr 10/02/18 10:00 Chloride IV TITR NORA Protocol 0.03 UNITS/MIN Vancomycin HCl 1 gm in 250 mls @ 167.007 mls/hr 10/02/18 11:00 10/04/18 10:17 Vancomycin/Ns 1 Gm/250 Ml IV 167.007 mls/hr Q24HR NORA Administration Norepinephrine 8 mg/ Sodium 250 mls @ 3.75 mls/hr 10/02/18 11:00 10/03/18 16:15 Chloride IV 0 mcg/min TITR NORA 0 mls/hr Titration Protocol 2 MCG/MIN Dextrose/Sodium Chloride 1,000 mls @ 75 mls/hr 10/04/18 13:00 10/04/18 13:19 D5/0.45ns IV 75 mls/hr DIRECT NORA Administration Levetiracetam 500 mg 10/01/18 22:00 10/04/18 21:10 Keppra PO 500 mg BID NORA Administration Multivitamins 1 each 10/02/18 10:00 10/04/18 10:05 Theragran Tab PO 1 each DAILY NORA Administration Oxycodone/Acetaminophen 1 tab 10/02/18 20:16 10/05/18 04:21 Percocet 5/325 PO 1 tab Q4H PRN Administration Pain, Moderate (4-6) Simple Syrup 15 ml 10/02/18 10:35 Simple Syrup FEEDTUBE PRN PRN Hypoglycemia Simple Syrup 30 ml 10/02/18 10:35 Simple Syrup FEEDTUBE PRN PRN Hypoglycemia Simple Syrup 15 ml 10/04/18 14:58 Simple Syrup FEEDTUBE PRN PRN Hypoglycemia Simple Syrup 30 ml 10/04/18 14:58 Simple Syrup FEEDTUBE PRN PRN Hypoglycemia Sodium Bicarbonate 325 mg 10/02/18 10:35 Sodium Bicarbonate FEEDTUBE PRN PRN For Clogged Feeding Tube Sodium Bicarbonate 325 mg 10/04/18 14:58 Sodium Bicarbonate FEEDTUBE PRN PRN For Clogged Feeding Tube Sodium Chloride 10 ml 10/01/18 22:00 10/04/18 22:08 Sodium Chloride Flush Syringe 10 Ml IV 10 ml BID NORA Administration Sodium Chloride 10 ml 10/01/18 17:40 Sodium Chloride Flush Syringe 10 Ml IV PRN PRN LINE FLUSH Zinc Sulfate 220 mg 10/02/18 10:00 10/04/18 10:05 Zinc Sulfate PO 220 mg QDAY NORA Administration
[2018-10-05] MEDS: THERAGRAN Tab PO SCH (10:43)
[2018-10-05] MEDS: VITAMIN C FEEDTUBE SCH ×2 (10:43→21:31)
[2018-10-05] MEDS: PEPCID PO SCH (10:43)
[2018-10-05] MEDS: KEPPRA PO SCH ×2 (10:43→21:31)
[2018-10-05] MEDS: HEPARIN SUB-Q SCH ×2 (10:43→21:35)
[2018-10-05] MEDS: MERREM/NS 500 MG/50 ML 500 MG/50 ML BAG IV SCH ×2 (10:44→21:31)
[2018-10-05] MEDS: VANCOMYCIN/NS 1 GM/250 ML 1 GM/250 ML BAG IV SCH (10:44)
[2018-10-05] MEDS: D5/0.45NS 1,000 ML IV SCH (10:45)
--- NOTE | 2018-10-05 10:59 | Progress Note ---
Assessment and Plan Cultures: Blood culture 10/01/2018 MRSA 2 of 4. Blood culture 10/03/2018 no growth Assessment: 67 y/o male with history of HTN, CVA, obstructive uropathy, contractures, multiple decubitus ulcers, NC, DM, OA, seizure Disorder, COPD, dementia, debility, BPH, well known to ID service due to multiple admissions from decubitus ulcers infections, resident of care home, admitted due to decreased responsiveness compared to baseline and hypotension. SBP in 60's: 1) Severe Sepsis with septic shock: improving, off pressors since 10/04. Etiology most likely Staph aureus bacteremia. 2) Staph aureus (MRSA) bacteremia: source likely multiple decubitus or UTI. Blood culture 10/01/2018 S. aureus 2 of 4. TTE no negative. 3) Recent septic shock due to polymicrobial bacteremia ESBL E coli, MDR Proteus, Strep and E faecalis on 07/29/2018 probably from multiple infected decubitus ulcers and less likely UTI. Repeat blood cultures 07/31/2018 showed same MDR E coli 1 of 4 bottles then 08/06/2018 blood cultures showed no growth. Patient did not respond to carbapenem and was placed on Vabomere for 14 days. 4) Multiple infected decubitus ulcers: currently active large left trochanteric with bone exposure and sacral with bone exposure. His prognosis has been poor and discussed previously with family hospice indication, but they declined. His wounds are not curable considering his contractures, bed bound status and poor nutritional status. There was also suspicion of septic arthritis of left hip from decubitus ulcer. 5) Recurrent CA-UTI. 6) Acute encephalopathy: resolved. 7) MÓNICA: resolved Recommendations: - f/u repeat blood cultures. - Continue wound care. - Continue vancomycin D4 for MRSA bacteremia. - Will continue meropenem (started 09/1518) for 5 days to cover UTI as urine culture was not sent and he has h/o MDR GNRs - Please d/c femoral TLC and change bright catheter to condom catheter. - d/w [employer]. Overall prognosis very poor. Prior discussions held with family for hospice evaluation, but they declined. Will follow. Joann Lindsey MD ID attending [phone] Subjective Date of service: 10/05/18 Principal diagnosis: Septic shock; Ac encephalopathy; Multiple decubitus ulcers; Ac renal failur Interval history: Low grade fever. c/o pain all over. Moans when touched. ROS limited. Objective - Exam Narrative Exam: General appearance: Alert. moans when touched. Answer some questions. Eyes: anicteric sclerae, moist conjunctivae; no lid-lag; PERRLA. HENT: Atraumatic; oropharynx limited. Neck: Trachea midline; supple, no thyromegaly or lymphadenopathy. Lungs: scattered rhonchi. CV: S1,S2. Abdomen: Soft, non-tender; PEG in place. : bright catheter in place Extremities: Bilateral contracted legs, multiple wounds covered. Skin: multiple skin tears Psych: moans Neuro: alert Lines: R femoral TLC WOUND CARE EVAL LEFT TROCHANTER STAGE 4 PRESSURE INJURY. LARGE AMOUNT OF YELLOW DRAINAGE. NO ODOR. WOUND PROBES TO A DEPTH OF 8CM. 6X6X8. THERE IS BONE EXPOSED. CLEANSED WITH WOUND CLEANSER. PACKED WITH 2 PIECES OF 4X4 ALGINATE. COVERED WITH 4X4 GAUZE, THEN TELFA. STAGE 4 SACRAL PRESSURE INJURY NOTED. PINK GRANULATION TISSUE. MODERATE AMOUNT OF YELLOW DRAINAGE. BONE IS EXPOSED. PERIWOUND SKIN IS INTACT. MEASURES [id number] CLEANSED WITH WOUND CLEANSER. ALGINATE APPLIED. COVERED WITH 4X4 GAUZE, THEN TELFA. - Constitutional Vitals: Vital Signs Temp Pulse Resp BP Pulse Ox 98.6 F 88 20 124/65 99 10/05/18 08:00 10/05/18 09:52 10/05/18 09:31 10/05/18 09:31 10/05/18 09:31 Temperature -Last 24 Hours Temperature 98.6 F Temperature 100.2 F Temperature 99.4 F Temperature 97.8 F Temperature 98.9 F Temperature 98.7 F Temperature 98.8 F Temperature 98.8 F Temperature 98.6 F Temperature 99.1 F Temperature 98.7 F Temperature 98.9 F Temperature 98.9 F Temperature 98.2 F - Labs CBC & Chem 7: 10/05/18 04:20 10/05/18 04:20 Labs: Abnormal lab results 10/02/18 10/04/18 10/04/18 Range/Units 09:46 12:35 18:28 WBC (4.5-11.0) K/mm3 RBC (3.65-5.03) M/mm3 Hgb (11.8-15.2) gm/dl Hct (35.5-45.6) % RDW (13.2-15.2) % Lymph % (Auto) (13.4-35.0) % Eos % (Auto) (0.0-4.3) % Lymph # (1.2-5.4) K/mm3 Eos # (0.0-0.4) K/mm3 Seg Neutrophils % (40.0-70.0) % Seg Neutrophils # (1.8-7.7) K/mm3 Chloride (98-107) mmol/L Carbon Dioxide (22-30) mmol/L BUN (9-20) mg/dL POC Glucose 109 H 109 H (70-105) Calcium (8.4-10.2) mg/dL Crossmatch See Detail 10/05/18 10/05/18 Range/Units 04:20 04:20 WBC 14.1 H (4.5-11.0) K/mm3 RBC 2.94 L (3.65-5.03) M/mm3 Hgb 8.2 L (11.8-15.2) gm/dl Hct 25.2 L (35.5-45.6) % RDW 17.9 H (13.2-15.2) % Lymph % (Auto) 6.6 L (13.4-35.0) % Eos % (Auto) 6.4 H (0.0-4.3) % Lymph # 0.9 L (1.2-5.4) K/mm3 Eos # 0.9 H (0.0-0.4) K/mm3 Seg Neutrophils % 82.7 H (40.0-70.0) % Seg Neutrophils # 11.6 H (1.8-7.7) K/mm3 Chloride 110.0 H (98-107) mmol/L Carbon Dioxide 21 L (22-30) mmol/L BUN 64 H (9-20) mg/dL POC Glucose (70-105) Calcium 8.3 L (8.4-10.2) mg/dL Crossmatch
--- NOTE | 2018-10-05 13:42 | Progress Note ---
Assessment and Plan / Severe sepsis with shock, POA due to bacteremia, UTI and RUL PNA continue Sepsis Protocol: IV antibiotic therapy, IVF resuscitation therapy, follow final Blood cultures, s/p IV pressors , ID consulted Per ID: - Continue vancomycin D4 for MRSA bacteremia. - Will continue meropenem (started 09/1518) for 5 days to cover UTI as urine culture was not sent and he has h/o MDR GNRs /MRSA bacteremia - cont vanc, ID following, 2d echo showed no vegetation /Anemia, s/p 2 units blood transfusion, likely AOCD ans severe sepsis - stool for occult blood negative, cont to monitor / MÓNICA with vasomotor nephropathy IVF resuscitation therapy, monitor uop q shift, repeat bmp in am, nephrology consulted in ED. /Right upper lobe Pneumonia, suspect aspiration On Pneumonia Protocol: IV antibiotic therapy, supplemental oxygen, pulse oximetry, Sputum culture if sample available / Elevated troponin Likely due to sepsis with low blood pressure and renal failure Monitor with Serial cardiac enzymes, Cardiology consulted in ED, No EKG changes, supportive care, / UTI (lower urinary tract infection) IV antibiotic therapy, IV fluids, follow culture /Acute hypoxic Respiratory failure Likely due to underlying pneumonia Supplemental oxygen, nebulizer therapy, ABG, NIPPV as clinically indicated, pulse oximetry, /Moderate to severe protein calorie malnutrition - BMI 17.8, albumin 1.7 - consulted dietary, continue to feeding for now hypernatremia, on hypotonic saline Hypokalemia, repleted / DVT prophylaxis SCD to BLE while in bed, prophylactic heparin Brief History: 67 YO Male Intermediate Facility Resident as [facility] with HTN, CVA, Obstructive Uropathy, Contracture, Decubitus Ulcers, PR, DM, OA, Seizure Disorder, COPD, Dementia, Debility, BPH presented to ED for evaluation, As per staff, the patient was found to have decreased responsiveness compared to baseline. Pt seen and evaluated in ED and found to have Sepsis secondary to UTI with concomitant RUL Pneumonia with a QSofa score of 8( GCS:3, MAP less than 70, Creatnine:2.1), Encephalopathy, and symptomatic anemia. Pt admitted to ICU and initiated on Sepsis protocol. Radiological data: Chest x-ray: Limited exam. Mild cardiomegaly. The lungs are grossly clear although there is poor visualization of the right upper lobe. Hospitalist Physical exam: GENERAL: Elderly male lying on bed appeared to be in no discomfort. It appears to be very lethargic and aphasic HEENT: Normocephalic. Atraumatic. No conjunctival congestion or icterus. Patient has moist mucous membranes. NECK: Supple. Trachea midline. CHEST/LUNGS: Clear to auscultated bilaterally, breathing nonlabored. No wheezes crackles or rhonchi. HEART/CARDIOVASCULAR: Regular in rate and rhythm. S1 and S2 positive. ABDOMEN: Abdomen is soft, nontender. Patient has normal bowel sounds. SKIN: There is no rash. Warm and dry. NEURO: Does not Follow command. MUSCULOSKELETAL: No joint effusion, generalized weakness unable to move extremities EXTRIMITY: No edema, no cyanosis or clubbing. PSYCH: Unable to assess. Subjective Date of service: 10/05/18 Principal diagnosis: Septic shock; Ac encephalopathy; Multiple decubitus ulcers; Ac renal failur Interval history: Patient seen and examined. Medical records and medication list reviewed. No acute event overnight noted by the RN. Patient unable to provide any history with severe dementia Patient on nasal cannula , on tube feeding, no sign of active bleeding off pressor now, H/h stable Discussed plan of care at bedside with RN. Objective - Constitutional Vitals: Vital Signs - 12hr 10/05/18 10/05/18 10/05/18 01:45 02:00 02:15 Temperature Pulse Rate 75 80 80 Pulse Rate [ From Monitor] Respiratory 21 28 H 21 Rate Blood Pressure 122/63 117/59 117/59 O2 Sat by Pulse 100 99 100 Oximetry 10/05/18 10/05/18 10/05/18 02:31 02:45 03:00 Temperature Pulse Rate 76 75 77 Pulse Rate [ From Monitor] Respiratory 22 22 20 Rate Blood Pressure 117/59 117/59 123/62 O2 Sat by Pulse 100 100 99 Oximetry 10/05/18 10/05/18 10/05/18 03:15 03:17 03:31 Temperature 100.2 F H Pulse Rate 78 76 Pulse Rate [ From Monitor] Respiratory 25 H 19 Rate Blood Pressure 123/62 123/62 O2 Sat by Pulse 100 100 Oximetry 10/05/18 10/05/18 10/05/18 03:45 04:00 04:01 Temperature Pulse Rate 95 H 96 H Pulse Rate [ 95 H From Monitor] Respiratory 35 H 30 H 27 H Rate Blood Pressure 123/62 143/73 O2 Sat by Pulse 99 95 96 Oximetry 10/05/18 10/05/18 10/05/18 04:15 04:31 04:45 Temperature Pulse Rate 95 H 96 H 90 Pulse Rate [ From Monitor] Respiratory 40 H 45 H 29 H Rate Blood Pressure 143/73 143/73 143/73 O2 Sat by Pulse 96 97 98 Oximetry 10/05/18 10/05/18 10/05/18 05:00 05:15 05:31 Temperature Pulse Rate 87 86 84 Pulse Rate [ From Monitor] Respiratory 27 H 30 H 22 Rate Blood Pressure 119/63 119/63 119/63 O2 Sat by Pulse 95 98 99 Oximetry 10/05/18 10/05/18 10/05/18 05:45 06:00 06:15 Temperature Pulse Rate 82 81 79 Pulse Rate [ From Monitor] Respiratory 21 22 21 Rate Blood Pressure 119/63 118/64 118/64 O2 Sat by Pulse 99 96 98 Oximetry 10/05/18 10/05/18 10/05/18 06:31 06:45 07:00 Temperature Pulse Rate 77 78 76 Pulse Rate [ From Monitor] Respiratory 23 22 21 Rate Blood Pressure 118/64 118/64 113/58 O2 Sat by Pulse 99 98 98 Oximetry 10/05/18 10/05/18 10/05/18 07:15 07:31 07:45 Temperature Pulse Rate 78 74 76 Pulse Rate [ From Monitor] Respiratory 23 26 H 19 Rate Blood Pressure 113/58 113/58 113/58 O2 Sat by Pulse 100 99 99 Oximetry 10/05/18 10/05/18 10/05/18 08:00 08:15 08:31 Temperature 98.6 F Pulse Rate 81 79 79 Pulse Rate [ 97 H From Monitor] Respiratory 23 24 21 Rate Blood Pressure 124/65 124/65 124/65 O2 Sat by Pulse 96 99 99 Oximetry 10/05/18 10/05/18 10/05/18 08:45 08:55 09:00 Temperature Pulse Rate 79 82 Pulse Rate [ From Monitor] Respiratory 22 24 Rate Blood Pressure 124/65 124/64 O2 Sat by Pulse 99 99 96 Oximetry 10/05/18 10/05/18 10/05/18 09:15 09:31 09:52 Temperature Pulse Rate 81 80 88 Pulse Rate [ From Monitor] Respiratory 21 20 Rate Blood Pressure 124/65 124/65 O2 Sat by Pulse 99 99 Oximetry 10/05/18 12:00 Temperature 99.1 F Pulse Rate Pulse Rate [ From Monitor] Respiratory Rate Blood Pressure O2 Sat by Pulse Oximetry - Labs CBC & Chem 7: 10/06/18 05:15 10/06/18 05:15 Labs: Abnormal lab results 10/02/18 10/04/18 10/05/18 Range/Units 09:46 18:28 04:20 WBC 14.1 H (4.5-11.0) K/mm3 RBC 2.94 L (3.65-5.03) M/mm3 Hgb 8.2 L (11.8-15.2) gm/dl Hct 25.2 L (35.5-45.6) % RDW 17.9 H (13.2-15.2) % Lymph % (Auto) 6.6 L (13.4-35.0) % Eos % (Auto) 6.4 H (0.0-4.3) % Lymph # 0.9 L (1.2-5.4) K/mm3 Eos # 0.9 H (0.0-0.4) K/mm3 Seg Neutrophils % 82.7 H (40.0-70.0) % Seg Neutrophils # 11.6 H (1.8-7.7) K/mm3 Chloride (98-107) mmol/L Carbon Dioxide (22-30) mmol/L BUN (9-20) mg/dL POC Glucose 109 H (70-105) Calcium (8.4-10.2) mg/dL Crossmatch See Detail 10/05/18 10/05/18 Range/Units 04:20 11:45 WBC (4.5-11.0) K/mm3 RBC (3.65-5.03) M/mm3 Hgb (11.8-15.2) gm/dl Hct (35.5-45.6) % RDW (13.2-15.2) % Lymph % (Auto) (13.4-35.0) % Eos % (Auto) (0.0-4.3) % Lymph # (1.2-5.4) K/mm3 Eos # (0.0-0.4) K/mm3 Seg Neutrophils % (40.0-70.0) % Seg Neutrophils # (1.8-7.7) K/mm3 Chloride 110.0 H (98-107) mmol/L Carbon Dioxide 21 L (22-30) mmol/L BUN 64 H (9-20) mg/dL POC Glucose 118 H (70-105) Calcium 8.3 L (8.4-10.2) mg/dL Crossmatch
[2018-10-05] MEDS: SODIUM CHLORIDE FLUSH SYRINGE 10 ML IV SCH (21:34)
[2018-10-06] MEDS: SODIUM CHLORIDE FLUSH SYRINGE 10 ML IV SCH ×3 (01:25→21:30)
[2018-10-06] MEDS: D5/0.45NS 1,000 ML IV SCH ×2 (05:07→20:00)
[2018-10-06 05:31] LABS: Basophils % (Auto) 0.3 % (0.0-1.8); Eosinophils # (Auto) 0.9 K/mm3 (0.0-0.4); Eosinophils % (Auto) 7.3 % (0.0-4.3); Hematocrit 24.1 % (35.5-45.6); Hemoglobin 7.6 gm/dl (11.8-15.2); Lymphocytes # (Auto) 0.6 K/mm3 (1.2-5.4); Lymphocytes % (Auto) 4.9 % (13.4-35.0); Mean Corpuscular HGB Conc 32 % (32-34); Mean Corpuscular Volume 87 fl (84-94); Monocytes # (Auto) 0.8 K/mm3 (0.0-0.8); Monocytes % (Auto) 6.4 % (0.0-7.3); Platelet Count 393 K/mm3 (140-440); Red Blood Count 2.77 M/mm3 (3.65-5.03); Red Cell Distribution Width 18.1 % (13.2-15.2)
[2018-10-06 05:47] LABS: BUN/Creatinine Ratio 52; Blood Urea Nitrogen 57 mg/dL (9-20); Calcium 8.4 mg/dL (8.4-10.2); Hemolysis Index 2
[2018-10-06] MEDS: ZINC SULFATE PO SCH ×2 (09:44→10:16)
[2018-10-06] MEDS: VITAMIN C FEEDTUBE SCH ×2 (10:16→21:30)
[2018-10-06] MEDS: MERREM/NS 500 MG/50 ML 500 MG/50 ML BAG IV SCH ×2 (10:16→21:27)
[2018-10-06] MEDS: VANCOMYCIN/NS 1 GM/250 ML 1 GM/250 ML BAG IV SCH (10:16)
[2018-10-06] MEDS: THERAGRAN Tab PO SCH (10:17)
[2018-10-06] MEDS: HEPARIN SUB-Q SCH ×2 (10:17→21:31)
[2018-10-06] MEDS: PEPCID PO SCH (10:17)
[2018-10-06] MEDS: KEPPRA PO SCH ×2 (10:17→21:30)
--- NOTE | 2018-10-06 11:52 | Progress Note ---
Assessment and Plan / Severe sepsis with shock, POA due to bacteremia, UTI and RUL PNA continue Sepsis Protocol: IV antibiotic therapy, IVF resuscitation therapy, follow final Blood cultures, s/p IV pressors , ID consulted Per ID: - Continue vancomycin for MRSA bacteremia. - Will continue meropenem (started 10/02/18) for 5 days to cover UTI as urine culture was not sent and he has h/o MDR GNRs /MRSA bacteremia - possible source infected decubitus ulcer - cont vanc, ID following, 2d echo showed no vegetation /Decubitus ulcer, multiple with different stages - cont wound care, abx per ID /Anemia, s/p 2 units blood transfusion, likely AOCD ans severe sepsis - stool for occult blood negative, cont to monitor / MÓNICA with vasomotor nephropathy IVF resuscitation therapy, monitor uop q shift, repeat bmp in am, nephrology consulted in ED. /Right upper lobe Pneumonia, suspect aspiration On Pneumonia Protocol: IV antibiotic therapy, supplemental oxygen, pulse oximetry, Sputum culture if sample available / Elevated troponin Likely due to sepsis with low blood pressure and renal failure Monitor with Serial cardiac enzymes, Cardiology consulted in ED, No EKG changes, supportive care, / UTI (lower urinary tract infection) IV antibiotic therapy, IV fluids, follow culture /Acute hypoxic Respiratory failure Likely due to underlying pneumonia Supplemental oxygen, nebulizer therapy, ABG, NIPPV as clinically indicated, pulse oximetry, /Moderate to severe protein calorie malnutrition - BMI 17.8, albumin 1.7 - consulted dietary, continue to feeding for now hypernatremia, on hypotonic saline Hypokalemia, repleted / DVT prophylaxis SCD to BLE while in bed, prophylactic heparin Disposition: wait for final ID recommendation for d/c abx coverage Brief History: 67 [facility] Res[facility] as [facility] with HTN, CVA, Obstructive Uropathy, Contracture, Decubitus Ulcers, TX, DM, OA, Seizure Disorder, COPD, Dementia, Debility, BPH presented to ED for evaluation, As per staff, the patient was found to have decreased responsiveness compared to baseline. Pt seen and evaluated in ED and found to have Sepsis secondary to UTI with concomitant RUL Pneumonia with a QSofa score of 8( GCS:3, MAP less than 70, Creatnine:2.1), Encephalopathy, and symptomatic anemia. Pt admitted to ICU and initiated on Sepsis protocol. Radiological data: Chest x-ray: Limited exam. Mild cardiomegaly. The lungs are grossly clear although there is poor visualization of the right upper lobe. Hospitalist Physical exam: GENERAL: Elderly male lying on bed appeared to be in no discomfort. It appears to be very lethargic and aphasic HEENT: Normocephalic. Atraumatic. No conjunctival congestion or icterus. Patient has moist mucous membranes. NECK: Supple. Trachea midline. CHEST/LUNGS: Clear to auscultated bilaterally, breathing nonlabored. No wheezes crackles or rhonchi. HEART/CARDIOVASCULAR: Regular in rate and rhythm. S1 and S2 positive. ABDOMEN: Abdomen is soft, nontender. Patient has normal bowel sounds. SKIN: There is no rash. Warm and dry. NEURO: Does not Follow command. MUSCULOSKELETAL: No joint effusion, generalized weakness unable to move extremities EXTRIMITY: No edema, no cyanosis or clubbing. PSYCH: Unable to assess. Subjective Date of service: 10/06/18 Principal diagnosis: Septic shock; Ac encephalopathy; Multiple decubitus ulcers; Ac renal failur Interval history: Patient seen and examined. Medical records and medication list reviewed. No acute event overnight noted by the RN. Patient unable to provide any history with severe dementia Patient on nasal cannula , on tube feeding, no sign of active bleeding off pressor now, H/h stable Discussed plan of care at bedside with RN. Objective - Constitutional Vitals: Vital Signs - 12hr 10/05/18 10/06/18 10/06/18 23:59 00:00 00:15 Temperature 99.0 F Pulse Rate 100 H 96 H Pulse Rate [ 98 H From Monitor] Respiratory 40 H 37 H Rate Blood Pressure 135/67 135/67 O2 Sat by Pulse 87 91 Oximetry 10/06/18 10/06/18 10/06/18 00:31 00:45 01:00 Temperature Pulse Rate 94 H 93 H 89 Pulse Rate [ From Monitor] Respiratory 30 H 29 H 26 H Rate Blood Pressure 135/67 135/67 130/66 O2 Sat by Pulse 96 97 96 Oximetry 10/06/18 10/06/18 10/06/18 01:15 01:31 01:45 Temperature Pulse Rate 90 89 89 Pulse Rate [ From Monitor] Respiratory 29 H 29 H 30 H Rate Blood Pressure 130/66 130/66 130/66 O2 Sat by Pulse 98 99 99 Oximetry 10/06/18 10/06/18 10/06/18 02:00 02:15 02:31 Temperature Pulse Rate 88 86 85 Pulse Rate [ From Monitor] Respiratory 30 H 26 H 27 H Rate Blood Pressure 135/68 135/68 135/68 O2 Sat by Pulse 95 99 99 Oximetry 10/06/18 10/06/18 10/06/18 02:45 03:00 03:15 Temperature Pulse Rate 88 85 88 Pulse Rate [ From Monitor] Respiratory 30 H 26 H 27 H Rate Blood Pressure 135/68 124/60 124/60 O2 Sat by Pulse 99 96 99 Oximetry 10/06/18 10/06/18 10/06/18 03:31 03:45 03:52 Temperature 99.1 F Pulse Rate 86 83 Pulse Rate [ From Monitor] Respiratory 30 H 25 H Rate Blood Pressure 124/60 124/60 O2 Sat by Pulse 100 100 Oximetry 10/06/18 10/06/18 10/06/18 04:00 04:15 04:31 Temperature Pulse Rate 85 88 90 Pulse Rate [ 98 H From Monitor] Respiratory 25 H 41 H 34 H Rate Blood Pressure 130/64 130/64 130/64 O2 Sat by Pulse 96 98 99 Oximetry 10/06/18 10/06/18 10/06/18 04:45 05:00 05:15 Temperature Pulse Rate 86 87 93 H Pulse Rate [ From Monitor] Respiratory 25 H 24 25 H Rate Blood Pressure 130/64 133/65 133/65 O2 Sat by Pulse 100 96 100 Oximetry 10/06/18 10/06/18 10/06/18 05:31 05:45 06:00 Temperature Pulse Rate 89 85 86 Pulse Rate [ From Monitor] Respiratory 25 H 27 H 29 H Rate Blood Pressure 133/65 133/65 133/69 O2 Sat by Pulse 99 96 96 Oximetry 10/06/18 10/06/18 10/06/18 06:15 06:31 06:45 Temperature Pulse Rate 87 90 89 Pulse Rate [ From Monitor] Respiratory 28 H 24 31 H Rate Blood Pressure 133/69 133/69 133/69 O2 Sat by Pulse 100 100 100 Oximetry 10/06/18 10/06/18 10/06/18 07:01 07:15 07:31 Temperature Pulse Rate 115 H 97 H 95 H Pulse Rate [ From Monitor] Respiratory 32 H 17 23 Rate Blood Pressure 160/103 160/103 160/103 O2 Sat by Pulse 98 98 100 Oximetry 10/06/18 10/06/18 10/06/18 07:45 08:00 08:15 Temperature Pulse Rate 92 H 91 H 87 Pulse Rate [ From Monitor] Respiratory 20 32 H 31 H Rate Blood Pressure 145/75 130/74 130/74 O2 Sat by Pulse 100 98 100 Oximetry 10/06/18 10/06/18 10/06/18 08:31 08:43 08:45 Temperature 99.5 F Pulse Rate 98 H 110 H Pulse Rate [ From Monitor] Respiratory 20 48 H Rate Blood Pressure 130/74 130/74 O2 Sat by Pulse 99 97 Oximetry 10/06/18 10/06/18 10/06/18 09:00 09:15 09:31 Temperature Pulse Rate 93 H 93 H 88 Pulse Rate [ From Monitor] Respiratory 35 H 32 H 26 H Rate Blood Pressure 125/80 125/80 125/80 O2 Sat by Pulse 100 100 100 Oximetry 10/06/18 10/06/18 10/06/18 09:45 10:00 10:15 Temperature Pulse Rate 92 H 89 98 H Pulse Rate [ From Monitor] Respiratory 32 H 32 H 33 H Rate Blood Pressure 125/80 142/81 142/81 O2 Sat by Pulse 100 98 100 Oximetry 10/06/18 10/06/18 10/06/18 10:31 10:45 11:01 Temperature Pulse Rate 72 89 98 H Pulse Rate [ From Monitor] Respiratory 26 H 29 H 31 H Rate Blood Pressure 142/81 142/81 147/90 O2 Sat by Pulse 99 100 95 Oximetry 10/06/18 10/06/18 11:15 11:20 Temperature Pulse Rate 93 H Pulse Rate [ From Monitor] Respiratory 34 H Rate Blood Pressure 147/90 O2 Sat by Pulse 97 100 Oximetry - Labs CBC & Chem 7: 10/07/18 05:06 10/07/18 05:06 Labs: Abnormal lab results 10/05/18 10/05/18 10/06/18 Range/Units 11:45 17:32 05:15 WBC 12.3 H (4.5-11.0) K/mm3 RBC 2.77 L (3.65-5.03) M/mm3 Hgb 7.6 L (11.8-15.2) gm/dl Hct 24.1 L (35.5-45.6) % RDW 18.1 H (13.2-15.2) % Lymph % (Auto) 4.9 L (13.4-35.0) % Eos % (Auto) 7.3 H (0.0-4.3) % Lymph # 0.6 L (1.2-5.4) K/mm3 Eos # 0.9 H (0.0-0.4) K/mm3 Seg Neutrophils % 81.1 H (40.0-70.0) % Seg Neutrophils # 10.0 H (1.8-7.7) K/mm3 Sodium (137-145) mmol/L Chloride (98-107) mmol/L BUN (9-20) mg/dL Glucose (75-100) mg/dL POC Glucose 118 H 113 H (70-105) Vancomycin Trough (5.0-20.0) ug/mL 10/06/18 10/06/18 10/06/18 Range/Units 05:15 05:35 Unknown WBC (4.5-11.0) K/mm3 RBC (3.65-5.03) M/mm3 Hgb (11.8-15.2) gm/dl Hct (35.5-45.6) % RDW (13.2-15.2) % Lymph % (Auto) (13.4-35.0) % Eos % (Auto) (0.0-4.3) % Lymph # (1.2-5.4) K/mm3 Eos # (0.0-0.4) K/mm3 Seg Neutrophils % (40.0-70.0) % Seg Neutrophils # (1.8-7.7) K/mm3 Sodium 146 H (137-145) mmol/L Chloride 112.1 H (98-107) mmol/L BUN 57 H (9-20) mg/dL Glucose 120 H (75-100) mg/dL POC Glucose 115 H (70-105) Vancomycin Trough 23.5 H (5.0-20.0) ug/mL
--- NOTE | 2018-10-06 11:57 | Progress Note ---
Assessment and Plan 1. Acute kidney injury: Vasomotor / hemodynamic MÓNICA in the setting of hypotension, sepsis and volume depletion. Continue IV fluids. Renal function is improving. Monitor renal function. Avoid nephrotoxic agents. Meds dosage based on GFR. 2. FEN: Hypernatremia, improving on 1/2 NS. Monitor lytes. 3. Sepsis with shock: Off pressors. 4. Anemia: PRBC. 5. Multiple decubitus ulcers. 6. Encephalopathy. Subjective Date of service: 10/06/18 Principal diagnosis: Septic shock; Ac encephalopathy; Multiple decubitus ulcers; Ac renal failur Interval history: Patient was seen and examined at the bedside. Objective - Vital Signs Vital signs: Vital Signs - 12hr 10/05/18 10/06/18 10/06/18 23:59 00:00 00:15 Temperature 99.0 F Pulse Rate 100 H 96 H Pulse Rate [ 98 H From Monitor] Respiratory 40 H 37 H Rate Blood Pressure 135/67 135/67 O2 Sat by Pulse 87 91 Oximetry 10/06/18 10/06/18 10/06/18 00:31 00:45 01:00 Temperature Pulse Rate 94 H 93 H 89 Pulse Rate [ From Monitor] Respiratory 30 H 29 H 26 H Rate Blood Pressure 135/67 135/67 130/66 O2 Sat by Pulse 96 97 96 Oximetry 10/06/18 10/06/18 10/06/18 01:15 01:31 01:45 Temperature Pulse Rate 90 89 89 Pulse Rate [ From Monitor] Respiratory 29 H 29 H 30 H Rate Blood Pressure 130/66 130/66 130/66 O2 Sat by Pulse 98 99 99 Oximetry 10/06/18 10/06/18 10/06/18 02:00 02:15 02:31 Temperature Pulse Rate 88 86 85 Pulse Rate [ From Monitor] Respiratory 30 H 26 H 27 H Rate Blood Pressure 135/68 135/68 135/68 O2 Sat by Pulse 95 99 99 Oximetry 10/06/18 10/06/18 10/06/18 02:45 03:00 03:15 Temperature Pulse Rate 88 85 88 Pulse Rate [ From Monitor] Respiratory 30 H 26 H 27 H Rate Blood Pressure 135/68 124/60 124/60 O2 Sat by Pulse 99 96 99 Oximetry 10/06/18 10/06/18 10/06/18 03:31 03:45 03:52 Temperature 99.1 F Pulse Rate 86 83 Pulse Rate [ From Monitor] Respiratory 30 H 25 H Rate Blood Pressure 124/60 124/60 O2 Sat by Pulse 100 100 Oximetry 10/06/18 10/06/18 10/06/18 04:00 04:15 04:31 Temperature Pulse Rate 85 88 90 Pulse Rate [ 98 H From Monitor] Respiratory 25 H 41 H 34 H Rate Blood Pressure 130/64 130/64 130/64 O2 Sat by Pulse 96 98 99 Oximetry 10/06/18 10/06/18 10/06/18 04:45 05:00 05:15 Temperature Pulse Rate 86 87 93 H Pulse Rate [ From Monitor] Respiratory 25 H 24 25 H Rate Blood Pressure 130/64 133/65 133/65 O2 Sat by Pulse 100 96 100 Oximetry 10/06/18 10/06/18 10/06/18 05:31 05:45 06:00 Temperature Pulse Rate 89 85 86 Pulse Rate [ From Monitor] Respiratory 25 H 27 H 29 H Rate Blood Pressure 133/65 133/65 133/69 O2 Sat by Pulse 99 96 96 Oximetry 10/06/18 10/06/18 10/06/18 06:15 06:31 06:45 Temperature Pulse Rate 87 90 89 Pulse Rate [ From Monitor] Respiratory 28 H 24 31 H Rate Blood Pressure 133/69 133/69 133/69 O2 Sat by Pulse 100 100 100 Oximetry 10/06/18 10/06/18 10/06/18 07:01 07:15 07:31 Temperature Pulse Rate 115 H 97 H 95 H Pulse Rate [ From Monitor] Respiratory 32 H 17 23 Rate Blood Pressure 160/103 160/103 160/103 O2 Sat by Pulse 98 98 100 Oximetry 10/06/18 10/06/18 10/06/18 07:45 08:00 08:15 Temperature Pulse Rate 92 H 91 H 87 Pulse Rate [ From Monitor] Respiratory 20 32 H 31 H Rate Blood Pressure 145/75 130/74 130/74 O2 Sat by Pulse 100 98 100 Oximetry 10/06/18 10/06/18 10/06/18 08:31 08:43 08:45 Temperature 99.5 F Pulse Rate 98 H 110 H Pulse Rate [ From Monitor] Respiratory 20 48 H Rate Blood Pressure 130/74 130/74 O2 Sat by Pulse 99 97 Oximetry 10/06/18 10/06/18 10/06/18 09:00 09:15 09:31 Temperature Pulse Rate 93 H 93 H 88 Pulse Rate [ From Monitor] Respiratory 35 H 32 H 26 H Rate Blood Pressure 125/80 125/80 125/80 O2 Sat by Pulse 100 100 100 Oximetry 10/06/18 10/06/18 10/06/18 09:45 10:00 10:15 Temperature Pulse Rate 92 H 89 98 H Pulse Rate [ From Monitor] Respiratory 32 H 32 H 33 H Rate Blood Pressure 125/80 142/81 142/81 O2 Sat by Pulse 100 98 100 Oximetry 10/06/18 10/06/18 10/06/18 10:31 10:45 11:01 Temperature Pulse Rate 72 89 98 H Pulse Rate [ From Monitor] Respiratory 26 H 29 H 31 H Rate Blood Pressure 142/81 142/81 147/90 O2 Sat by Pulse 99 100 95 Oximetry 10/06/18 10/06/18 11:15 11:20 Temperature Pulse Rate 93 H Pulse Rate [ From Monitor] Respiratory 34 H Rate Blood Pressure 147/90 O2 Sat by Pulse 97 100 Oximetry - General Appearance General appearance: well-developed, appears stated age, other (not in distress) EENT: ATNC, PERRL Respiratory: Present: Clear to Ascultation Cardiology: regular, S1S2, no murmurs Gastrointestinal: normoactive bowel sounds, other (PEG tube noted) Integumentary: ulcer, decubiti Neurologic: other (non-verbal, not following any command, opens eyes) Musculoskeletal: other (multiple contractures noted) - Lab 10/06/18 05:15 10/06/18 05:15 Most recent lab results Calcium 8.4 mg/dL (8.4-10.2) 10/06/18 05:15 Phosphorus 5.00 mg/dL (2.5-4.5) H 10/02/18 04:45 Magnesium 3.30 mg/dL (1.7-2.3) H 10/01/18 18:23 74.7 mg/dL (0.1-20.0) H 10/02/18 04:45 21 mmol/L 10/02/18 04:45 Medications & Allergies - Medications Allergies/Adverse Reactions: Allergies lisinopril Allergy (Verified 10/01/18 15:17) Unknown tramadol Allergy (Verified 07/29/18 18:39) Unknown Home Medications: Home Medications Medication Instructions Recorded Confirmed Last Taken Type Multivit-Min/Iron Fum/Folic AC 1 each PO DAILY 03/24/18 10/03/18 Unknown History [Gbham-Fmjucxm-Hfhnvopc Tablet] Acetaminophen 650 mg NGTUBE Q6H PRN 07/30/18 10/03/18 Unknown History AtorvaSTATin [Lipitor] 40 mg NGTUBE QHS 07/30/18 10/03/18 Unknown History Dutasteride 0.5 mg NGTUBE QAM 07/30/18 10/03/18 Unknown History Ipratropium/Albuterol Sulfate 1 ampul IH BID 07/30/18 10/03/18 Unknown History [DUONEB *Not for PRN Use*] Lisinopril [Zestril TAB] 40 mg PO QDAY 07/30/18 10/03/18 Unknown History Tamsulosin [Flomax] 0.4 mg PO QDAY 07/30/18 10/03/18 Unknown History Vit C/Ascorbate Calcium,Sodium 500 mg NGTUBE BID 07/30/18 10/03/18 Unknown Histo ry [Vitamin C 500 mg/15 ml Liquid] Zinc Sulfate 220 mg NGTUBE QDAY 07/30/18 10/03/18 Unknown History levETIRAcetam [Keppra INJ] 500 mg PO Q12H 07/30/18 10/03/18 Unknown History Carvedilol [Coreg] 3.125 mg PO BID #60 tablet 08/23/18 10/03/18 Unknown Rx Furosemide [Lasix] 20 mg PO QDAY #30 tablet 08/23/18 10/03/18 Unknown Rx Oxycodone HCl/Acetaminophen 1 each PO Q8HR PRN #14 tablet 08/23/18 10/03/18 Unknown Rx [Percocet 7.5/325 mg] Phosphorus #1 [K-Phos Neutral] 250 mg PO QID #30 tablet 08/23/18 10/03/18 Unknown Rx hydroCHLOROthiazide [HCTZ] 12.5 mg PO QDAY #30 tablet 08/23/18 10/03/18 Unknown Rx Active Medications: Generic Name Dose Route Start Last Admin Trade Name Freq PRN Reason Stop Dose Admin Acetaminophen 650 mg 10/01/18 15:32 Tylenol FEEDTUBE Q6H PRN Pain, Moderate (4-6) Albuterol 2.5 mg 10/01/18 17:40 10/04/18 21:02 Proventil IH 2.5 mg Q3HRT PRN Administration Shortness Of Breath Lipase/Protease/Amylase 1 each 10/04/18 14:58 Pancreazadela Moore 10,500 Unit FEEDTUBE PRN PRN For Clogged Feeding Tube Ascorbic Acid 500 mg 10/04/18 10:00 10/06/18 10:16 Vitamin C FEEDTUBE 500 mg BID NORA Administration Atorvastatin Calcium 40 mg 10/01/18 22:00 10/05/18 21:31 Lipitor FEEDTUBE 40 mg QHS NORA Administration Famotidine 20 mg 10/03/18 12:00 10/06/18 10:17 Pepcid PO 20 mg DAILY NORA Administration Heparin Sodium (Porcine) 5,000 unit 10/01/18 22:00 10/06/18 10:17 Heparin SUB-Q 5,000 unit Q12HR NORA Administration Meropenem 500 mg in 50 mls @ 50 mls/hr 10/02/18 11:00 10/06/18 10:16 Merrem/Ns 500 Mg/50 Ml IV 10/06/18 23:59 50 mls/hr Q12HR NORA Administration Vasopressin 20 unit/ Sodium 101 mls @ 9.09 mls/hr 10/02/18 10:00 Chloride IV TITR NORA Protocol 0.03 UNITS/MIN Vancomycin HCl 1 gm in 250 mls @ 167.007 mls/hr 10/02/18 11:00 10/06/18 10:16 Vancomycin/Ns 1 Gm/250 Ml IV 167.007 mls/hr Q24HR NORA Administration Norepinephrine 8 mg/ Sodium 250 mls @ 3.75 mls/hr 10/02/18 11:00 10/03/18 16:15 Chloride IV 0 mcg/min TITR NORA 0 mls/hr Titration Protocol 2 MCG/MIN Dextrose/Sodium Chloride 1,000 mls @ 75 mls/hr 10/04/18 13:00 10/06/18 05:07 D5/0.45ns IV 75 mls/hr DIRECT NORA Administration Levetiracetam 500 mg 10/01/18 22:00 10/06/18 10:17 Keppra PO 500 mg BID ONRA Administration Multivitamins 1 each 10/02/18 10:00 10/06/18 10:17 Theragran Tab PO 1 each DAILY NORA Administration Oxycodone/Acetaminophen 1 tab 10/02/18 20:16 10/05/18 19:00 Percocet 5/325 PO 1 tab Q4H PRN Administration Pain, Moderate (4-6) Simple Syrup 15 ml 10/02/18 10:35 Simple Syrup FEEDTUBE PRN PRN Hypoglycemia Simple Syrup 30 ml 10/02/18 10:35 Simple Syrup FEEDTUBE PRN PRN Hypoglycemia Sodium Bicarbonate 325 mg 10/02/18 10:35 Sodium Bicarbonate FEEDTUBE PRN PRN For Clogged Feeding Tube Sodium Chloride 10 ml 10/01/18 22:00 10/06/18 10:17 Sodium Chloride Flush Syringe 10 Ml IV 10 ml BID NORA Administration Sodium Chloride 10 ml 10/01/18 17:40 10/05/18 21:30 Sodium Chloride Flush Syringe 10 Ml IV 10 ml PRN PRN Administration LINE FLUSH Zinc Sulfate 220 mg 10/02/18 10:00 10/06/18 10:16 Zinc Sulfate PO 220 mg QDAY NORA Administration
--- NOTE | 2018-10-06 17:42 | Progress Note ---
Assessment and Plan Severe Sepsis with septic shock GPC bacteremia Acute encephalopathy Multiple decubitus ulcers Acute metabolic encephaloapthy Hypernatremia Recurrent CAUTI Lactic acidosis Acute renal failure- prerenal/vasomotor nephropathy - advance enteral nutrition to goal re: hypoglycemia - continue free water flushes for hypernatremia - continue to monitor renal indices closely (improving) - continue to avoid nephrotoxic agents, adjust all medications for CrCL - azotemia per nephrology - continue to wean supplemental oxygen for O2 sats>90% - VTE prophylaxis - continue and de-escalate AB's per ID rec's - continue aspiration precautions - continue mobility protocol as tolerated for pressure ulcer prophylaxis - wound care per WCT - continue accuchecks with glycemic control per SSI for target glucose of 140- 180 mg/dL - continue bronchodilators with pulmonary hygiene per RT - Discontinued femoral CVL - Influenza and pneumonia vaccination per protocol ..care plan discussed at length with RN/RT at the bedside ... improved and will transfer out of ICU Subjective Date of service: 10/06/18 Principal diagnosis: Septic shock; Ac encephalopathy; Multiple decubitus ulcers; Ac renal failur Interval history: Patient is seen today for: Severe Sepsis with septic shock; GPC bacteremia; Acute encephalopathy; Multiple decubitus ulcers; Acute metabolic encephaloapthy; Hypernatremia; Recurrent CAUTI; Lactic acidosis; Acute renal failure- prerenal/vasomotor nephropathy Seen and examined at bedside; 24hour events reviewed; nursing and respiratory care staff consulted; no adverse overnight events reported to me; resting peacefully in bed; doing much better; on 3L NC; denies acute chest pains; tolerating tube feeds; remains off vasopressors; Afebrile Objective Vital Signs - 12hr 10/06/18 10/06/18 10/06/18 05:45 06:00 06:15 Temperature Pulse Rate 85 86 87 Pulse Rate [ From Monitor] Respiratory 27 H 29 H 28 H Rate Blood Pressure 133/65 133/69 133/69 O2 Sat by Pulse 96 96 100 Oximetry 10/06/18 10/06/18 10/06/18 06:31 06:45 07:01 Temperature Pulse Rate 90 89 115 H Pulse Rate [ From Monitor] Respiratory 24 31 H 32 H Rate Blood Pressure 133/69 133/69 160/103 O2 Sat by Pulse 100 100 98 Oximetry 10/06/18 10/06/18 10/06/18 07:15 07:31 07:45 Temperature Pulse Rate 97 H 95 H 92 H Pulse Rate [ From Monitor] Respiratory 17 23 20 Rate Blood Pressure 160/103 160/103 145/75 O2 Sat by Pulse 98 100 100 Oximetry 10/06/18 10/06/18 10/06/18 08:00 08:15 08:31 Temperature Pulse Rate 91 H 87 98 H Pulse Rate [ 110 H From Monitor] Respiratory 32 H 31 H 20 Rate Blood Pressure 130/74 130/74 130/74 O2 Sat by Pulse 98 100 99 Oximetry 10/06/18 10/06/18 10/06/18 08:43 08:45 09:00 Temperature 99.5 F Pulse Rate 110 H 93 H Pulse Rate [ From Monitor] Respiratory 48 H 35 H Rate Blood Pressure 130/74 125/80 O2 Sat by Pulse 97 100 Oximetry 10/06/18 10/06/18 10/06/18 09:15 09:31 09:45 Temperature Pulse Rate 93 H 88 92 H Pulse Rate [ From Monitor] Respiratory 32 H 26 H 32 H Rate Blood Pressure 125/80 125/80 125/80 O2 Sat by Pulse 100 100 100 Oximetry 10/06/18 10/06/18 10/06/18 10:00 10:15 10:31 Temperature Pulse Rate 89 98 H 72 Pulse Rate [ From Monitor] Respiratory 32 H 33 H 26 H Rate Blood Pressure 142/81 142/81 142/81 O2 Sat by Pulse 98 100 99 Oximetry 10/06/18 10/06/18 10/06/18 10:45 11:01 11:15 Temperature Pulse Rate 89 98 H 93 H Pulse Rate [ From Monitor] Respiratory 29 H 31 H 34 H Rate Blood Pressure 142/81 147/90 147/90 O2 Sat by Pulse 100 95 97 Oximetry 10/06/18 10/06/18 10/06/18 11:20 11:31 11:45 Temperature Pulse Rate 93 H 95 H Pulse Rate [ From Monitor] Respiratory 23 24 Rate Blood Pressure 147/90 147/90 O2 Sat by Pulse 100 98 98 Oximetry 10/06/18 10/06/18 10/06/18 12:00 12:15 12:31 Temperature Pulse Rate 95 H 77 86 Pulse Rate [ 120 H From Monitor] Respiratory 24 22 21 Rate Blood Pressure 150/80 147/90 147/90 O2 Sat by Pulse 96 98 99 Oximetry 10/06/18 10/06/18 10/06/18 12:45 13:00 13:05 Temperature 99.2 F Pulse Rate 88 88 Pulse Rate [ From Monitor] Respiratory 25 H 23 Rate Blood Pressure 147/90 147/75 O2 Sat by Pulse 99 97 Oximetry 10/06/18 10/06/18 10/06/18 13:15 13:31 13:45 Temperature Pulse Rate 80 80 108 H Pulse Rate [ From Monitor] Respiratory 21 22 23 Rate Blood Pressure 150/80 150/80 150/80 O2 Sat by Pulse 100 99 Oximetry 10/06/18 10/06/18 10/06/18 14:00 14:15 14:31 Temperature Pulse Rate 101 H 94 H 91 H Pulse Rate [ From Monitor] Respiratory 36 H 29 H 28 H Rate Blood Pressure 139/86 139/86 139/86 O2 Sat by Pulse 98 99 Oximetry 10/06/18 10/06/18 10/06/18 14:45 15:00 15:15 Temperature Pulse Rate 88 91 H 88 Pulse Rate [ From Monitor] Respiratory 28 H 27 H 26 H Rate Blood Pressure 139/86 145/80 145/80 O2 Sat by Pulse 99 98 99 Oximetry 10/06/18 10/06/18 10/06/18 15:31 15:45 16:00 Temperature Pulse Rate 92 H 92 H 88 Pulse Rate [ 88 From Monitor] Respiratory 24 24 22 Rate Blood Pressure 145/80 145/80 154/79 O2 Sat by Pulse 99 100 99 Oximetry Constitutional: no acute distress, other (elderly looking AAM, normocephalic but contrated and with mildly increased work of breathing at rest) Eyes: non-icteric ENT: oropharynx moist Neck: no lymphadenopathy, no JVD, other (neck stiff and deviated to the right side) Effort: mildly labored Ascultation: Bilateral: diminished breath sounds, rhonchi (scant) Percussion: Bilateral: not dull Cardiovascular: regular rate and rhythm Gastrointestinal: normoactive bowel sounds, soft, non-tender, non-distended, other (PEG tube) Integumentary: rash Extremities: no cyanosis, pulses normal, no ischemia or petechiae Neurologic: pupils equal and round, other (tardive dyskinetic movts) Psychiatric: other (unable to assess) CBC and BMP: 10/07/18 05:06 10/07/18 05:06 ABG, PT/INR, D-dimer: ABG POC ABG pH 7.480 (7.35-7.45) H 10/01/18 18:12 POC ABG pO2 64 (80-105) L 10/01/18 18:12 POC ABG HCO3 21.0 (22-26 mml/L) 10/01/18 18:12 POC ABG Total CO2 22 (23-27mmol/L) 10/01/18 18:12 POC ABG O2 Sat 94 10/01/18 18:12 Abnormal lab findings: Abnormal Labs 10/01/18 10/01/18 10/01/18 14:29 14:29 15:13 WBC 18.5 H RBC 2.68 L Hgb 7.3 L Hct 23.1 L MCH 27 L MCHC 31 L RDW 19.3 H Plt Count 522 H Lymph % (Auto) 6.7 L Eos % (Auto) Lymph # Wilkinson # 1.2 H Eos # Seg Neutrophils % 85.0 H Seg Neuts % (Manual) Lymphocytes % (Manual) Seg Neutrophils # 15.7 H Seg Neutrophils # Man Lymphocytes # (Manual) POC ABG pH POC ABG pO2 Sodium 148 H Potassium 3.3 L Chloride Carbon Dioxide BUN 98 H Creatinine 2.0 H Glucose 142 H POC Glucose Lactic Acid Calcium Phosphorus Magnesium AST Alkaline Phosphatase Troponin T 0.361 H* Albumin Cholesterol 36 L LDL Cholesterol Direct 6 L HDL Cholesterol 21 L Urine WBC (Auto) > 182.0 H Urine Creatinine Vancomycin Trough Crossmatch 10/01/18 10/01/18 10/01/18 15:15 15:15 17:03 WBC RBC Hgb Hct MCH MCHC RDW Plt Count Lymph % (Auto) Eos % (Auto) Lymph # Wilkinson # Eos # Seg Neutrophils % Seg Neuts % (Manual) Lymphocytes % (Manual) Seg Neutrophils # Seg Neutrophils # Man Lymphocytes # (Manual) POC ABG pH POC ABG pO2 Sodium 150 H Potassium Chloride Carbon Dioxide BUN 94 H Creatinine 2.1 H Glucose 132 H POC Glucose Lactic Acid 2.60 H* 2.20 H* Calcium 7.8 L Phosphorus Magnesium AST 47 H Alkaline Phosphatase 179 H Troponin T Albumin 2.1 L Cholesterol LDL Cholesterol Direct HDL Cholesterol Urine WBC (Auto) Urine Creatinine Vancomycin Trough Crossmatch 10/01/18 10/01/1819 18:12 18:23 18:23 WBC RBC Hgb Hct MCH MCHC RDW Plt Count Lymph % (Auto) Eos % (Auto) Lymph # Wilkinson # Eos # Seg Neutrophils % Seg Neuts % (Manual) Lymphocytes % (Manual) Seg Neutrophils # Seg Neutrophils # Man Lymphocytes # (Manual) POC ABG pH 7.480 H POC ABG pO2 64 L Sodium Potassium Chloride Carbon Dioxide BUN Creatinine Glucose POC Glucose Lactic Acid Calcium Phosphorus Magnesium 3.30 H AST Alkaline Phosphatase Troponin T 0.378 H* Albumin Cholesterol LDL Cholesterol Direct HDL Cholesterol Urine WBC (Auto) Urine Creatinine Vancomycin Trough Crossmatch 10/01/18 10/01/18 10/01/18 18:48 21:20 23:48 WBC RBC Hgb Hct MCH MCHC RDW Plt Count Lymph % (Auto) Eos % (Auto) Lymph # Wilkinson # Eos # Seg Neutrophils % Seg Neuts % (Manual) Lymphocytes % (Manual) Seg Neutrophils # Seg Neutrophils # Man Lymphocytes # (Manual) POC ABG pH POC ABG pO2 Sodium Potassium Chloride Carbon Dioxide BUN Creatinine Glucose POC Glucose Lactic Acid 2.30 H* 2.70 H* Calcium Phosphorus Magnesium AST Alkaline Phosphatase Troponin T 0.336 H* Albumin Cholesterol LDL Cholesterol Direct HDL Cholesterol Urine WBC (Auto) Urine Creatinine Vancomycin Trough Crossmatch 10/01/18 10/02/18 10/02/18 23:48 04:45 04:45 WBC 18.3 H RBC 2.40 L Hgb 6.4 L Hct 20.4 L MCH 27 L MCHC 31 L RDW 19.1 H Plt Count 462 H Lymph % (Auto) Eos % (Auto) Lymph # Wilkinson # Eos # Seg Neutrophils % Seg Neuts % (Manual) 78.0 H Lymphocytes % (Manual) 5.0 L Seg Neutrophils # Seg Neutrophils # Man 14.3 H Lymphocytes # (Manual) 0.9 L POC ABG pH POC ABG pO2 Sodium Potassium Chloride Carbon Dioxide BUN Creatinine Glucose POC Glucose Lactic Acid 2.50 H* Calcium Phosphorus Magnesium AST Alkaline Phosphatase Troponin T Albumin Cholesterol LDL Cholesterol Direct HDL Cholesterol Urine WBC (Auto) Urine Creatinine 74.7 H Vancomycin Trough Crossmatch 10/02/18 10/02/18 10/02/18 04:45 04:45 04:45 WBC RBC Hgb Hct MCH MCHC RDW Plt Count Lymph % (Auto) Eos % (Auto) Lymph # Wilkinson # Eos # Seg Neutrophils % Seg Neuts % (Manual) Lymphocytes % (Manual) Seg Neutrophils # Seg Neutrophils # Man Lymphocytes # (Manual) POC ABG pH POC ABG pO2 Sodium 148 H Potassium 3.1 L Chloride 108.6 H Carbon Dioxide 21 L BUN 89 H Creatinine 1.8 H Glucose POC Glucose Lactic Acid 2.10 H* Calcium 8.3 L Phosphorus 5.00 H Magnesium AST Alkaline Phosphatase 161 H Troponin T Albumin 1.7 L Cholesterol LDL Cholesterol Direct HDL Cholesterol Urine WBC (Auto) Urine Creatinine Vancomycin Trough Crossmatch 10/02/18 10/02/18 10/03/18 09:46 11:47 00:03 WBC RBC Hgb Hct MCH MCHC RDW Plt Count Lymph % (Auto) Eos % (Auto) Lymph # Wilkinson # Eos # Seg Neutrophils % Seg Neuts % (Manual) Lymphocytes % (Manual) Seg Neutrophils # Seg Neutrophils # Man Lymphocytes # (Manual) POC ABG pH POC ABG pO2 Sodium Potassium Chloride Carbon Dioxide BUN Creatinine Glucose POC Glucose 112 H 106 H Lactic Acid Calcium Phosphorus Magnesium AST Alkaline Phosphatase Troponin T Albumin Cholesterol LDL Cholesterol Direct HDL Cholesterol Urine WBC (Auto) Urine Creatinine Vancomycin Trough Crossmatch See Detail 10/03/18 10/03/18 10/03/18 06:06 06:45 06:45 WBC 17.3 H RBC 2.81 L Hgb 7.6 L Hct 24.1 L MCH 27 L MCHC 31 L RDW 18.4 H Plt Count 473 H Lymph % (Auto) 5.2 L Eos % (Auto) 4.6 H Lymph # 0.9 L Wilkinson # Eos # 0.8 H Seg Neutrophils % 85.7 H Seg Neuts % (Manual) Lymphocytes % (Manual) Seg Neutrophils # 14.8 H Seg Neutrophils # Man Lymphocytes # (Manual) POC ABG pH POC ABG pO2 Sodium 148 H Potassium Chloride 112.1 H Carbon Dioxide 21 L BUN 79 H Creatinine 1.7 H Glucose 116 H POC Glucose 130 H Lactic Acid Calcium 7.9 L Phosphorus Magnesium AST Alkaline Phosphatase Troponin T Albumin Cholesterol LDL Cholesterol Direct HDL Cholesterol Urine WBC (Auto) Urine Creatinine Vancomycin Trough Crossmatch 10/03/18 10/03/18 10/03/18 11:50 17:42 23:20 WBC RBC Hgb Hct MCH MCHC RDW Plt Count Lymph % (Auto) Eos % (Auto) Lymph # Wilkinson # Eos # Seg Neutrophils % Seg Neuts % (Manual) Lymphocytes % (Manual) Seg Neutrophils # Seg Neutrophils # Man Lymphocytes # (Manual) POC ABG pH POC ABG pO2 Sodium Potassium Chloride Carbon Dioxide BUN Creatinine Glucose POC Glucose 126 H 118 H 106 H Lactic Acid Calcium Phosphorus Magnesium AST Alkaline Phosphatase Troponin T Albumin Cholesterol LDL Cholesterol Direct HDL Cholesterol Urine WBC (Auto) Urine Creatinine Vancomycin Trough Crossmatch 10/04/18 10/04/18 10/04/18 05:22 07:00 07:00 WBC 14.8 H RBC 2.38 L Hgb 6.4 L Hct 20.5 L MCH 27 L MCHC 31 L RDW 18.2 H Plt Count Lymph % (Auto) 5.3 L Eos % (Auto) 9.5 H Lymph # 0.8 L Wilkinson # Eos # 1.4 H Seg Neutrophils % 81.2 H Seg Neuts % (Manual) Lymphocytes % (Manual) Seg Neutrophils # 12.0 H Seg Neutrophils # Man Lymphocytes # (Manual) POC ABG pH POC ABG pO2 Sodium 148 H Potassium Chloride 112.0 H Carbon Dioxide BUN 73 H Creatinine Glucose 105 H POC Glucose 115 H Lactic Acid Calcium 8.1 L Phosphorus Magnesium AST Alkaline Phosphatase Troponin T Albumin 1.5 L Cholesterol LDL Cholesterol Direct HDL Cholesterol Urine WBC (Auto) Urine Creatinine Vancomycin Trough Crossmatch 10/04/18 10/04/18 10/05/18 12:35 18:28 04:20 WBC 14.1 H RBC 2.94 L Hgb 8.2 L Hct 25.2 L MCH MCHC RDW 17.9 H Plt Count Lymph % (Auto) 6.6 L Eos % (Auto) 6.4 H Lymph # 0.9 L Wilkinson # Eos # 0.9 H Seg Neutrophils % 82.7 H Seg Neuts % (Manual) Lymphocytes % (Manual) Seg Neutrophils # 11.6 H Seg Neutrophils # Man Lymphocytes # (Manual) POC ABG pH POC ABG pO2 Sodium Potassium Chloride Carbon Dioxide BUN Creatinine Glucose POC Glucose 109 H 109 H Lactic Acid Calcium Phosphorus Magnesium AST Alkaline Phosphatase Troponin T Albumin Cholesterol LDL Cholesterol Direct HDL Cholesterol Urine WBC (Auto) Urine Creatinine Vancomycin Trough Crossmatch 10/05/18 10/05/18 10/05/18 04:20 11:45 17:32 WBC RBC Hgb Hct MCH MCHC RDW Plt Count Lymph % (Auto) Eos % (Auto) Lymph # Wilkinson # Eos # Seg Neutrophils % Seg Neuts % (Manual) Lymphocytes % (Manual) Seg Neutrophils # Seg Neutrophils # Man Lymphocytes # (Manual) POC ABG pH POC ABG pO2 Sodium Potassium Chloride 110.0 H Carbon Dioxide 21 L BUN 64 H Creatinine Glucose POC Glucose 118 H 113 H Lactic Acid Calcium 8.3 L Phosphorus Magnesium AST Alkaline Phosphatase Troponin T Albumin Cholesterol LDL Cholesterol Direct HDL Cholesterol Urine WBC (Auto) Urine Creatinine Vancomycin Trough Crossmatch 10/06/18 10/06/18 10/06/18 05:15 05:15 05:35 WBC 12.3 H RBC 2.77 L Hgb 7.6 L Hct 24.1 L MCH MCHC RDW 18.1 H Plt Count Lymph % (Auto) 4.9 L Eos % (Auto) 7.3 H Lymph # 0.6 L Wilkinson # Eos # 0.9 H Seg Neutrophils % 81.1 H Seg Neuts % (Manual) Lymphocytes % (Manual) Seg Neutrophils # 10.0 H Seg Neutrophils # Man Lymphocytes # (Manual) POC ABG pH POC ABG pO2 Sodium 146 H Potassium Chloride 112.1 H Carbon Dioxide BUN 57 H Creatinine Glucose 120 H POC Glucose 115 H Lactic Acid Calcium Phosphorus Magnesium AST Alkaline Phosphatase Troponin T Albumin Cholesterol LDL Cholesterol Direct HDL Cholesterol Urine WBC (Auto) Urine Creatinine Vancomycin Trough Crossmatch 10/06/18 10/06/18 12:31 Unknown WBC RBC Hgb Hct MCH MCHC RDW Plt Count Lymph % (Auto) Eos % (Auto) Lymph # Wilkinson # Eos # Seg Neutrophils % Seg Neuts % (Manual) Lymphocytes % (Manual) Seg Neutrophils # Seg Neutrophils # Man Lymphocytes # (Manual) POC ABG pH POC ABG pO2 Sodium Potassium Chloride Carbon Dioxide BUN Creatinine Glucose POC Glucose 150 H Lactic Acid Calcium Phosphorus Magnesium AST Alkaline Phosphatase Troponin T Albumin Cholesterol LDL Cholesterol Direct HDL Cholesterol Urine WBC (Auto) Urine Creatinine Vancomycin Trough 23.5 H Crossmatch Chest x-ray: pending Allied health notes reviewed: nursing
[2018-10-07 06:18] LABS: Hematocrit 25.8 % (35.5-45.6); Hemoglobin 8.2 gm/dl (11.8-15.2)
[2018-10-07 06:20] LABS: BUN/Creatinine Ratio 54; Blood Urea Nitrogen 43 mg/dL (9-20); Calcium 8.3 mg/dL (8.4-10.2); Hemolysis Index 32
--- NOTE | 2018-10-07 09:55 | Progress Note ---
Assessment and Plan 1. Acute kidney injury: Vasomotor / hemodynamic MÓNICA in the setting of hypotension, sepsis and volume depletion. Renal function is improving. Monitor renal function. Avoid nephrotoxic agents. Meds dosage based on GFR. 2. FEN: Hypernatremia, improving on 1/2 NS. Monitor lytes. 3. Sepsis with shock: Off pressors. 4. Anemia: PRBC. 5. Multiple decubitus ulcers. 6. Encephalopathy. Subjective Date of service: 10/07/18 Principal diagnosis: Septic shock; Ac encephalopathy; Multiple decubitus ulcers; Ac renal failur Interval history: Patient was seen and examined at the bedside. Objective - Vital Signs Vital signs: Vital Signs - 12hr 10/06/18 10/06/18 10/06/18 22:00 22:15 22:31 Temperature Pulse Rate 88 91 H 90 Pulse Rate [ From Monitor] Respiratory 27 H 27 H 27 H Rate Blood Pressure 145/68 145/68 145/68 O2 Sat by Pulse 98 99 100 Oximetry 10/06/18 10/06/18 10/06/18 22:45 23:00 23:11 Temperature Pulse Rate 87 88 87 Pulse Rate [ From Monitor] Respiratory 23 26 H 25 H Rate Blood Pressure 145/68 138/62 138/62 O2 Sat by Pulse 100 98 100 Oximetry 10/06/18 10/06/18 10/06/18 23:15 23:31 23:45 Temperature Pulse Rate 90 89 94 H Pulse Rate [ From Monitor] Respiratory 27 H 25 H 29 H Rate Blood Pressure 138/62 138/62 138/62 O2 Sat by Pulse 100 99 98 Oximetry 10/07/18 10/07/18 10/07/18 00:00 00:15 00:31 Temperature 99.6 F Pulse Rate 85 90 101 H Pulse Rate [ 87 From Monitor] Respiratory 24 28 H 16 Rate Blood Pressure 133/61 133/61 133/61 O2 Sat by Pulse 97 99 98 Oximetry 10/07/18 10/07/18 10/07/18 00:45 00:55 01:00 Temperature Pulse Rate 96 H 90 89 Pulse Rate [ From Monitor] Respiratory 33 H 27 H 29 H Rate Blood Pressure 133/61 138/62 135/59 O2 Sat by Pulse 98 99 97 Oximetry 10/07/18 10/07/18 10/07/18 01:15 01:31 01:45 Temperature Pulse Rate 82 84 78 Pulse Rate [ From Monitor] Respiratory 26 H 12 15 Rate Blood Pressure 135/59 135/59 135/59 O2 Sat by Pulse 99 97 98 Oximetry 10/07/18 10/07/18 10/07/18 02:00 02:15 02:31 Temperature Pulse Rate 84 82 86 Pulse Rate [ From Monitor] Respiratory 12 25 H 18 Rate Blood Pressure 149/67 149/67 149/67 O2 Sat by Pulse 97 99 98 Oximetry 10/07/18 10/07/18 10/07/18 02:45 03:00 03:15 Temperature Pulse Rate 81 91 H 117 H Pulse Rate [ From Monitor] Respiratory 24 14 24 Rate Blood Pressure 149/67 148/75 148/75 O2 Sat by Pulse 99 99 96 Oximetry 10/07/18 10/07/18 10/07/18 03:31 03:45 04:00 Temperature 99.3 F Pulse Rate 113 H 101 H 103 H Pulse Rate [ 83 From Monitor] Respiratory 41 H 22 25 H Rate Blood Pressure 148/75 148/75 141/83 O2 Sat by Pulse 93 96 98 Oximetry 10/07/18 10/07/18 10/07/18 04:15 04:31 04:45 Temperature Pulse Rate 100 H 90 85 Pulse Rate [ From Monitor] Respiratory 21 21 22 Rate Blood Pressure 141/83 141/83 141/83 O2 Sat by Pulse 97 99 100 Oximetry 10/07/18 10/07/18 10/07/18 05:00 05:15 05:30 Temperature Pulse Rate 93 H 90 91 H Pulse Rate [ From Monitor] Respiratory 28 H 26 H 26 H Rate Blood Pressure 150/90 150/90 150/90 O2 Sat by Pulse 100 100 100 Oximetry 10/07/18 10/07/18 10/07/18 05:45 06:00 06:15 Temperature Pulse Rate 88 92 H 87 Pulse Rate [ From Monitor] Respiratory 23 17 20 Rate Blood Pressure 150/90 151/82 151/82 O2 Sat by Pulse 100 99 100 Oximetry 10/07/18 10/07/18 10/07/18 06:31 06:45 07:00 Temperature Pulse Rate 93 H 92 H 90 Pulse Rate [ From Monitor] Respiratory 21 21 19 Rate Blood Pressure 151/82 151/82 145/77 O2 Sat by Pulse 100 99 Oximetry 10/07/18 08:00 Temperature Pulse Rate Pulse Rate [ 88 From Monitor] Respiratory 20 Rate Blood Pressure O2 Sat by Pulse 100 Oximetry - General Appearance General appearance: well-developed, appears stated age, cachectic, other (not in distress) EENT: ATNC, PERRL Respiratory: Present: Clear to Ascultation Cardiology: regular, S1S2, no murmurs Gastrointestinal: normoactive bowel sounds, other (PEG tube noted) Integumentary: ulcer, decubiti Neurologic: other (opens eyes, non-verbal, not following any command) Musculoskeletal: other (multiple contractures noted) - Lab 10/07/18 05:06 10/07/18 05:06 Most recent lab results Calcium 8.3 mg/dL (8.4-10.2) L 10/07/18 05:06 Phosphorus 5.00 mg/dL (2.5-4.5) H 10/02/18 04:45 Magnesium 3.30 mg/dL (1.7-2.3) H 10/01/18 18:23 74.7 mg/dL (0.1-20.0) H 10/02/18 04:45 21 mmol/L 10/02/18 04:45 Medications & Allergies - Medications Allergies/Adverse Reactions: Allergies lisinopril Allergy (Verified 10/01/18 15:17) Unknown tramadol Allergy (Verified 07/29/18 18:39) Unknown Home Medications: Home Medications Medication Instructions Recorded Confirmed Last Taken Type Multivit-Min/Iron Fum/Folic AC 1 each PO DAILY 03/24/18 10/03/18 Unknown History [Goohw-Onobdez-Otkuxxad Tablet] Acetaminophen 650 mg NGTUBE Q6H PRN 07/30/18 10/03/18 Unknown History AtorvaSTATin [Lipitor] 40 mg NGTUBE QHS 07/30/18 10/03/18 Unknown History Dutasteride 0.5 mg NGTUBE QAM 07/30/18 10/03/18 Unknown History Ipratropium/Albuterol Sulfate 1 ampul IH BID 07/30/18 10/03/18 Unknown History [DUONEB *Not for PRN Use*] Lisinopril [Zestril TAB] 40 mg PO QDAY 07/30/18 10/03/18 Unknown History Tamsulosin [Flomax] 0.4 mg PO QDAY 07/30/18 10/03/18 Unknown History Vit C/Ascorbate Calcium,Sodium 500 mg NGTUBE BID 07/30/18 10/03/18 Unknown History [Vitamin C 500 mg/15 ml Liquid] Zinc Sulfate 220 mg NGTUBE QDAY 07/30/18 10/03/18 Unknown History levETIRAcetam [Keppra INJ] 500 mg PO Q12H 07/30/18 10/03/18 Unknown History Carvedilol [Coreg] 3.125 mg PO BID #60 tablet 08/23/18 10/03/18 Unknown Rx Furosemide [Lasix] 20 mg PO QDAY #30 tablet 08/23/18 10/03/18 Unknown Rx Oxycodone HCl/Acetaminophen 1 each PO Q8HR PRN #14 tablet 08/23/18 10/03/18 Unknown Rx [Percocet 7.5/325 mg] Phosphorus #1 [K-Phos Neutral] 250 mg PO QID #30 tablet 08/23/18 10/03/18 Unknown Rx hydroCHLOROthiazide [HCTZ] 12.5 mg PO QDAY #30 tablet 08/23/18 10/03/18 Unknown Rx Active Medications: Generic Name Dose Route Start Last Admin Trade Name Freq PRN Reason Stop Dose Admin Acetaminophen 650 mg 10/01/18 15:32 Tylenol FEEDTUBE Q6H PRN Pain, Moderate (4-6) Albuterol 2.5 mg 10/01/18 17:40 10/04/18 21:02 Proventil IH 2.5 mg Q3HRT PRN Administration Shortness Of Breath Lipase/Protease/Amylase 1 each 10/04/18 14:58 Pancreazadela Moore 10,500 Unit FEEDTUBE PRN PRN For Clogged Feeding Tube Ascorbic Acid 500 mg 10/04/18 10:00 10/06/18 21:30 Vitamin C FEEDTUBE 500 mg BID NORA Administration Atorvastatin Calcium 40 mg 10/01/18 22:00 10/06/18 21:30 Lipitor FEEDTUBE 40 mg QHS NORA Administration Famotidine 20 mg 10/03/18 12:00 10/06/18 10:17 Pepcid PO 20 mg DAILY NORA Administration Heparin Sodium (Porcine) 5,000 unit 10/01/18 22:00 10/06/18 21:31 Heparin SUB-Q 5,000 unit Q12HR NORA Administration Dextrose/Sodium Chloride 1,000 mls @ 75 mls/hr 10/04/18 13:00 10/06/18 20:00 D5/0.45ns IV 75 mls/hr DIRECT NORA Administration Vancomycin HCl 1 gm in 250 mls @ 167.007 mls/hr 10/08/18 10:00 Vancomycin/Ns 1 Gm/250 Ml IV Q48HR NORA Levetiracetam 500 mg 10/01/18 22:00 10/06/18 21:30 Keppra PO 500 mg BID NORA Administration Multivitamins 1 each 10/02/18 10:00 10/06/18 10:17 Theragran Tab PO 1 each DAILY NORA Administration Oxycodone/Acetaminophen 1 tab 10/02/18 20:16 10/05/18 19:00 Percocet 5/325 PO 1 tab Q4H PRN Administration Pain, Moderate (4-6) Simple Syrup 15 ml 10/02/18 10:35 Simple Syrup FEEDTUBE PRN PRN Hypoglycemia Simple Syrup 30 ml 10/02/18 10:35 Simple Syrup FEEDTUBE PRN PRN Hypoglycemia Sodium Bicarbonate 325 mg 10/02/18 10:35 Sodium Bicarbonate FEEDTUBE PRN PRN For Clogged Feeding Tube Sodium Chloride 10 ml 10/01/18 22:00 10/06/18 21:30 Sodium Chloride Flush Syringe 10 Ml IV 10 ml BID NORA Administration Sodium Chloride 10 ml 10/01/18 17:40 10/05/18 21:30 Sodium Chloride Flush Syringe 10 Ml IV 10 ml PRN PRN Administration LINE FLUSH Zinc Sulfate 220 mg 10/02/18 10:00 10/06/18 10:16 Zinc Sulfate PO 220 mg QDAY NORA Administration
[2018-10-07] MEDS: VITAMIN C FEEDTUBE SCH ×2 (10:22→22:00)
[2018-10-07] MEDS: PEPCID PO SCH (10:22)
[2018-10-07] MEDS: KEPPRA PO SCH ×2 (10:22→22:00)
[2018-10-07] MEDS: HEPARIN SUB-Q SCH ×2 (10:22→22:00)
[2018-10-07] MEDS: D5/0.45NS 1,000 ML IV SCH (10:23)
[2018-10-07] MEDS: ZINC SULFATE PO SCH (10:23)
[2018-10-07] MEDS: PERCOCET 5/325 PO PRN ×2 (10:29→14:39)
--- NOTE | 2018-10-07 14:12 | Progress Note ---
Assessment and Plan Severe Sepsis with septic shock GPC bacteremia Acute encephalopathy Multiple decubitus ulcers Acute metabolic encephaloapthy Hypernatremia Recurrent CAUTI Lactic acidosis Acute renal failure- prerenal/vasomotor nephropathy - continue to advance enteral nutrition to goal re: hypoglycemia - continue free water flushes for hypernatremia - continue to monitor renal indices closely (improving) - continue to avoid nephrotoxic agents, adjust all medications for CrCL - azotemia per nephrology - continue to wean supplemental oxygen for O2 sats>90% - VTE prophylaxis - continue and de-escalate AB's per ID rec's - continue aspiration precautions - continue mobility protocol as tolerated for pressure ulcer prophylaxis - wound care per WCT - continue accuchecks with glycemic control per SSI for target glucose of 140- 180 mg/dL - continue bronchodilators with pulmonary hygiene per RT - Discontinued femoral CVL - Influenza and pneumonia vaccination per protocol ..care plan discussed at length with RN/RT at the bedside Subjective Date of service: 10/07/18 Principal diagnosis: Septic shock; Ac encephalopathy; Multiple decubitus ulcers; Ac renal failur Interval history: Patient is seen today for: Severe Sepsis with septic shock; GPC bacteremia; Acute encephalopathy; Multiple decubitus ulcers; Acute metabolic encephaloapthy; Hypernatremia; Recurrent CAUTI; Lactic acidosis; Acute renal failure- prerenal/vasomotor nephropathy Seen and examined at bedside; 24hour events reviewed; nursing and respiratory care staff consulted; no adverse overnight events reported to me; resting peacefully in bed; no emesis or overt aspiration; remains on supplemental oxygen therapy Objective Vital Signs - 12hr 10/07/18 10/07/18 10/07/18 02:15 02:31 02:45 Temperature Pulse Rate 82 86 81 Pulse Rate [ From Monitor] Respiratory 25 H 18 24 Rate Blood Pressure 149/67 149/67 149/67 O2 Sat by Pulse 99 98 99 Oximetry 10/07/18 10/07/18 10/07/18 03:00 03:15 03:31 Temperature Pulse Rate 91 H 117 H 113 H Pulse Rate [ From Monitor] Respiratory 14 24 41 H Rate Blood Pressure 148/75 148/75 148/75 O2 Sat by Pulse 99 96 93 Oximetry 10/07/18 10/07/18 10/07/18 03:45 04:00 04:15 Temperature 99.3 F Pulse Rate 101 H 103 H 100 H Pulse Rate [ 83 From Monitor] Respiratory 22 25 H 21 Rate Blood Pressure 148/75 141/83 141/83 O2 Sat by Pulse 96 98 97 Oximetry 10/07/18 10/07/18 10/07/18 04:31 04:45 05:00 Temperature Pulse Rate 90 85 93 H Pulse Rate [ From Monitor] Respiratory 21 22 28 H Rate Blood Pressure 141/83 141/83 150/90 O2 Sat by Pulse 99 100 100 Oximetry 10/07/18 10/07/18 10/07/18 05:15 05:30 05:45 Temperature Pulse Rate 90 91 H 88 Pulse Rate [ From Monitor] Respiratory 26 H 26 H 23 Rate Blood Pressure 150/90 150/90 150/90 O2 Sat by Pulse 100 100 100 Oximetry 10/07/18 10/07/18 10/07/18 06:00 06:15 06:31 Temperature Pulse Rate 92 H 87 93 H Pulse Rate [ From Monitor] Respiratory 17 20 21 Rate Blood Pressure 151/82 151/82 151/82 O2 Sat by Pulse 99 100 100 Oximetry 10/07/18 10/07/18 10/07/18 06:45 07:00 08:00 Temperature Pulse Rate 92 H 90 Pulse Rate [ 88 From Monitor] Respiratory 21 19 20 Rate Blood Pressure 151/82 145/77 O2 Sat by Pulse 99 100 Oximetry Constitutional: no acute distress, other (elderly looking AAM, normocephalic but contrated and with mildly increased work of breathing at rest) Eyes: non-icteric ENT: oropharynx moist Neck: no lymphadenopathy, no JVD, other (neck stiff and deviated to the right side) Effort: mildly labored Ascultation: Bilateral: diminished breath sounds, rhonchi (scant) Percussion: Bilateral: not dull Cardiovascular: regular rate and rhythm Gastrointestinal: normoactive bowel sounds, soft, non-tender, non-distended, other (PEG tube) Integumentary: rash Extremities: no cyanosis, no edema, pulses normal, no ischemia or petechiae Neurologic: pupils equal and round, other (tardive dyskinetic movts) Psychiatric: other (unable to assess) CBC and BMP: 10/13/18 23:00 10/14/18 07:18 ABG, PT/INR, D-dimer: ABG POC ABG pH 7.480 (7.35-7.45) H 10/01/18 18:12 POC ABG pO2 64 (80-105) L 10/01/18 18:12 POC ABG HCO3 21.0 (22-26 mml/L) 10/01/18 18:12 POC ABG Total CO2 22 (23-27mmol/L) 10/01/18 18:12 POC ABG O2 Sat 94 10/01/18 18:12 Abnormal lab findings: Abnormal Labs 10/01/18 10/01/18 10/01/18 14:29 14:29 15:13 WBC 18.5 H RBC 2.68 L Hgb 7.3 L Hct 23.1 L MCH 27 L MCHC 31 L RDW 19.3 H Plt Count 522 H Lymph % (Auto) 6.7 L Eos % (Auto) Lymph # [place] # 1.2 H Eos # Seg Neutrophils % 85.0 H Seg Neuts % (Manual) Lymphocytes % (Manual) Seg Neutrophils # 15.7 H Seg Neutrophils # Man Lymphocytes # (Manual) POC ABG pH POC ABG pO2 Sodium 148 H Potassium 3.3 L Chloride Carbon Dioxide BUN 98 H Creatinine 2.0 H Glucose 142 H POC Glucose Lactic Acid Calcium Phosphorus Magnesium AST Alkaline Phosphatase Troponin T 0.361 H* Albumin Cholesterol 36 L LDL Cholesterol Direct 6 L HDL Cholesterol 21 L Urine WBC (Auto) > 182.0 H Urine Creatinine Vancomycin Trough Crossmatch 10/01/18 10/01/18 10/01/18 15:15 15:15 17:03 WBC RBC Hgb Hct MCH MCHC RDW Plt Count Lymph % (Auto) Eos % (Auto) Lymph # [place] # Eos # Seg Neutrophils % Seg Neuts % (Manual) Lymphocytes % (Manual) Seg Neutrophils # Seg Neutrophils # Man Lymphocytes # (Manual) POC ABG pH POC ABG pO2 Sodium 150 H Potassium Chloride Carbon Dioxide BUN 94 H Creatinine 2.1 H Glucose 132 H POC Glucose Lactic Acid 2.60 H* 2.20 H* Calcium 7.8 L Phosphorus Magnesium AST 47 H Alkaline Phosphatase 179 H Troponin T Albumin 2.1 L Cholesterol LDL Cholesterol Direct HDL Cholesterol Urine WBC (Auto) Urine Creatinine Vancomycin Trough Crossmatch 10/01/18 10/01/18 10/01/18 18:12 18:23 18:23 WBC RBC Hgb Hct MCH MCHC RDW Plt Count Lymph % (Auto) Eos % (Auto) Lymph # [place] # Eos # Seg Neutrophils % Seg Neuts % (Manual) Lymphocytes % (Manual) Seg Neutrophils # Seg Neutrophils # Man Lymphocytes # (Manual) POC ABG pH 7.480 H POC ABG pO2 64 L Sodium Potassium Chloride Carbon Dioxide BUN Creatinine Glucose POC Glucose Lactic Acid Calcium Phosphorus Magnesium 3.30 H AST Alkaline Phosphatase Troponin T 0.378 H* Albumin Cholesterol LDL Cholesterol Direct HDL Cholesterol Urine WBC (Auto) Urine Creatinine Vancomycin Trough Crossmatch 10/01/18 10/01/18 10/01/18 18:48 21:20 23:48 WBC RBC Hgb Hct MCH MCHC RDW Plt Count Lymph % (Auto) Eos % (Auto) Lymph # [place] # Eos # Seg Neutrophils % Seg Neuts % (Manual) Lymphocytes % (Manual) Seg Neutrophils # Seg Neutrophils # Man Lymphocytes # (Manual) POC ABG pH POC ABG pO2 Sodium Potassium Chloride Carbon Dioxide BUN Creatinine Glucose POC Glucose Lactic Acid 2.30 H* 2.70 H* Calcium Phosphorus Magnesium AST Alkaline Phosphatase Troponin T 0.336 H* Albumin Cholesterol LDL Cholesterol Direct HDL Cholesterol Urine WBC (Auto) Urine Creatinine Vancomycin Trough Crossmatch 10/01/18 10/02/18 10/02/18 23:48 04:45 04:45 WBC 18.3 H RBC 2.40 L Hgb 6.4 L Hct 20.4 L MCH 27 L MCHC 31 L RDW 19.1 H Plt Count 462 H Lymph % (Auto) Eos % (Auto) Lymph # [place] # Eos # Seg Neutrophils % Seg Neuts % (Manual) 78.0 H Lymphocytes % (Manual) 5.0 L Seg Neutrophils # Seg Neutrophils # Man 14.3 H Lymphocytes # (Manual) 0.9 L POC ABG pH POC ABG pO2 Sodium Potassium Chloride Carbon Dioxide BUN Creatinine Glucose POC Glucose Lactic Acid 2.50 H* Calcium Phosphorus Magnesium AST Alkaline Phosphatase Troponin T Albumin Cholesterol LDL Cholesterol Direct HDL Cholesterol Urine WBC (Auto) Urine Creatinine 74.7 H Vancomycin Trough Crossmatch 10/02/18 10/02/18 10/02/18 04:45 04:45 04:45 WBC RBC Hgb Hct MCH MCHC RDW Plt Count Lymph % (Auto) Eos % (Auto) Lymph # [place] # Eos # Seg Neutrophils % Seg Neuts % (Manual) Lymphocytes % (Manual) Seg Neutrophils # Seg Neutrophils # Man Lymphocytes # (Manual) POC ABG pH POC ABG pO2 Sodium 148 H Potassium 3.1 L Chloride 108.6 H Carbon Dioxide 21 L BUN 89 H Creatinine 1.8 H Glucose POC Glucose Lactic Acid 2.10 H* Calcium 8.3 L Phosphorus 5.00 H Magnesium AST Alkaline Phosphatase 161 H Troponin T Albumin 1.7 L Cholesterol LDL Cholesterol Direct HDL Cholesterol Urine WBC (Auto) Urine Creatinine Vancomycin Trough Crossmatch 10/02/18 10/02/18 10/03/18 09:46 11:47 00:03 WBC RBC Hgb Hct MCH MCHC RDW Plt Count Lymph % (Auto) Eos % (Auto) Lymph # [place] # Eos # Seg Neutrophils % Seg Neuts % (Manual) Lymphocytes % (Manual) Seg Neutrophils # Seg Neutrophils # Man Lymphocytes # (Manual) POC ABG pH POC ABG pO2 Sodium Potassium Chloride Carbon Dioxide BUN Creatinine Glucose POC Glucose 112 H 106 H Lactic Acid Calcium Phosphorus Magnesium AST Alkaline Phosphatase Troponin T Albumin Cholesterol LDL Cholesterol Direct HDL Cholesterol Urine WBC (Auto) Urine Creatinine Vancomycin Trough Crossmatch See Detail 10/03/18 10/03/18 10/03/18 06:06 06:45 06:45 WBC 17.3 H RBC 2.81 L Hgb 7.6 L Hct 24.1 L MCH 27 L MCHC 31 L RDW 18.4 H Plt Count 473 H Lymph % (Auto) 5.2 L Eos % (Auto) 4.6 H Lymph # 0.9 L [place] # Eos # 0.8 H Seg Neutrophils % 85.7 H Seg Neuts % (Manual) Lymphocytes % (Manual) Seg Neutrophils # 14.8 H Seg Neutrophils # Man Lymphocytes # (Manual) POC ABG pH POC ABG pO2 Sodium 148 H Potassium Chloride 112.1 H Carbon Dioxide 21 L BUN 79 H Creatinine 1.7 H Glucose 116 H POC Glucose 130 H Lactic Acid Calcium 7.9 L Phosphorus Magnesium AST Alkaline Phosphatase Troponin T Albumin Cholesterol LDL Cholesterol Direct HDL Cholesterol Urine WBC (Auto) Urine Creatinine Vancomycin Trough Crossmatch 10/03/18 10/03/18 10/03/18 11:50 17:42 23:20 WBC RBC Hgb Hct MCH MCHC RDW Plt Count Lymph % (Auto) Eos % (Auto) Lymph # [place] # Eos # Seg Neutrophils % Seg Neuts % (Manual) Lymphocytes % (Manual) Seg Neutrophils # Seg Neutrophils # Man Lymphocytes # (Manual) POC ABG pH POC ABG pO2 Sodium Potassium Chloride Carbon Dioxide BUN Creatinine Glucose POC Glucose 126 H 118 H 106 H Lactic Acid Calcium Phosphorus Magnesium AST Alkaline Phosphatase Troponin T Albumin Cholesterol LDL Cholesterol Direct HDL Cholesterol Urine WBC (Auto) Urine Creatinine Vancomycin Trough Crossmatch 10/04/18 10/04/18 10/04/18 05:22 07:00 07:00 WBC 14.8 H RBC 2.38 L Hgb 6.4 L Hct 20.5 L MCH 27 L MCHC 31 L RDW 18.2 H Plt Count Lymph % (Auto) 5.3 L Eos % (Auto) 9.5 H Lymph # 0.8 L [place] # Eos # 1.4 H Seg Neutrophils % 81.2 H Seg Neuts % (Manual) Lymphocytes % (Manual) Seg Neutrophils # 12.0 H Seg Neutrophils # Man Lymphocytes # (Manual) POC ABG pH POC ABG pO2 Sodium 148 H Potassium Chloride 112.0 H Carbon Dioxide BUN 73 H Creatinine Glucose 105 H POC Glucose 115 H Lactic Acid Calcium 8.1 L Phosphorus Magnesium AST Alkaline Phosphatase Troponin T Albumin 1.5 L Cholesterol LDL Cholesterol Direct HDL Cholesterol Urine WBC (Auto) Urine Creatinine Vancomycin Trough Crossmatch 10/04/18 10/04/18 10/05/18 12:35 18:28 04:20 WBC 14.1 H RBC 2.94 L Hgb 8.2 L Hct 25.2 L MCH MCHC RDW 17.9 H Plt Count Lymph % (Auto) 6.6 L Eos % (Auto) 6.4 H Lymph # 0.9 L [place] # Eos # 0.9 H Seg Neutrophils % 82.7 H Seg Neuts % (Manual) Lymphocytes % (Manual) Seg Neutrophils # 11.6 H Seg Neutrophils # Man Lymphocytes # (Manual) POC ABG pH POC ABG pO2 Sodium Potassium Chloride Carbon Dioxide BUN Creatinine Glucose POC Glucose 109 H 109 H Lactic Acid Calcium Phosphorus Magnesium AST Alkaline Phosphatase Troponin T Albumin Cholesterol LDL Cholesterol Direct HDL Cholesterol Urine WBC (Auto) Urine Creatinine Vancomycin Trough Crossmatch 10/05/18 10/05/18 10/05/18 04:20 11:45 17:32 WBC RBC Hgb Hct MCH MCHC RDW Plt Count Lymph % (Auto) Eos % (Auto) Lymph # [place] # Eos # Seg Neutrophils % Seg Neuts % (Manual) Lymphocytes % (Manual) Seg Neutrophils # Seg Neutrophils # Man Lymphocytes # (Manual) POC ABG pH POC ABG pO2 Sodium Potassium Chloride 110.0 H Carbon Dioxide 21 L BUN 64 H Creatinine Glucose POC Glucose 118 H 113 H Lactic Acid Calcium 8.3 L Phosphorus Magnesium AST Alkaline Phosphatase Troponin T Albumin Cholesterol LDL Cholesterol Direct HDL Cholesterol Urine WBC (Auto) Urine Creatinine Vancomycin Trough Crossmatch 10/06/18 10/06/18 10/06/18 05:15 05:15 05:35 WBC 12.3 H RBC 2.77 L Hgb 7.6 L Hct 24.1 L MCH MCHC RDW 18.1 H Plt Count Lymph % (Auto) 4.9 L Eos % (Auto) 7.3 H Lymph # 0.6 L [place] # Eos # 0.9 H Seg Neutrophils % 81.1 H Seg Neuts % (Manual) Lymphocytes % (Manual) Seg Neutrophils # 10.0 H Seg Neutrophils # Man Lymphocytes # (Manual) POC ABG pH POC ABG pO2 Sodium 146 H Potassium Chloride 112.1 H Carbon Dioxide BUN 57 H Creatinine Glucose 120 H POC Glucose 115 H Lactic Acid Calcium Phosphorus Magnesium AST Alkaline Phosphatase Troponin T Albumin Cholesterol LDL Cholesterol Direct HDL Cholesterol Urine WBC (Auto) Urine Creatinine Vancomycin Trough Crossmatch 10/06/18 10/06/18 10/06/18 12:31 18:44 Unknown WBC RBC Hgb Hct MCH MCHC RDW Plt Count Lymph % (Auto) Eos % (Auto) Lymph # [place] # Eos # Seg Neutrophils % Seg Neuts % (Manual) Lymphocytes % (Manual) Seg Neutrophils # Seg Neutrophils # Man Lymphocytes # (Manual) POC ABG pH POC ABG pO2 Sodium Potassium Chloride Carbon Dioxide BUN Creatinine Glucose POC Glucose 150 H 125 H Lactic Acid Calcium Phosphorus Magnesium AST Alkaline Phosphatase Troponin T Albumin Cholesterol LDL Cholesterol Direct HDL Cholesterol Urine WBC (Auto) Urine Creatinine Vancomycin Trough 23.5 H Crossmatch 10/07/18 10/07/18 10/07/18 05:06 05:06 08:34 WBC RBC Hgb 8.2 L Hct 25.8 L MCH MCHC RDW Plt Count Lymph % (Auto) Eos % (Auto) Lymph # [place] # Eos # Seg Neutrophils % Seg Neuts % (Manual) Lymphocytes % (Manual) Seg Neutrophils # Seg Neutrophils # Man Lymphocytes # (Manual) POC ABG pH POC ABG pO2 Sodium Potassium Chloride 112.2 H Carbon Dioxide 21 L BUN 43 H Creatinine Glucose POC Glucose Lactic Acid Calcium 8.3 L Phosphorus Magnesium AST Alkaline Phosphatase Troponin T Albumin Cholesterol LDL Cholesterol Direct HDL Cholesterol Urine WBC (Auto) Urine Creatinine Vancomycin Trough 23.0 H Crossmatch Allied health notes reviewed: nursing
--- NOTE | 2018-10-07 14:37 | Progress Note ---
Assessment and Plan / Severe sepsis with shock, POA due to bacteremia, UTI and RUL PNA continue Sepsis Protocol: IV antibiotic therapy, IVF resuscitation therapy, follow final Blood cultures, s/p IV pressors , ID consulted Per ID: - Continue vancomycin for MRSA bacteremia. - Will continue meropenem (started 10/02/18) for 5 days to cover UTI as urine culture was not sent and he has h/o MDR GNRs /MRSA bacteremia - possible source infected decubitus ulcer - cont vanc, ID following, 2d echo showed no vegetation /Decubitus ulcer, multiple with different stages - cont wound care, abx per ID /Anemia, s/p 2 units blood transfusion, likely AOCD ans severe sepsis - stool for occult blood negative, cont to monitor / MÓNICA with vasomotor nephropathy IVF resuscitation therapy, monitor uop q shift, repeat bmp in am, nephrology consulted in ED. /Right upper lobe Pneumonia, suspect aspiration On Pneumonia Protocol: IV antibiotic therapy, supplemental oxygen, pulse oximetry, Sputum culture if sample available / Elevated troponin Likely due to sepsis with low blood pressure and renal failure Monitor with Serial cardiac enzymes, Cardiology consulted in ED, No EKG changes, supportive care, / UTI (lower urinary tract infection) IV antibiotic therapy, IV fluids, follow culture /Acute hypoxic Respiratory failure Likely due to underlying pneumonia Supplemental oxygen, nebulizer therapy, ABG, NIPPV as clinically indicated, pulse oximetry, /Moderate to severe protein calorie malnutrition - BMI 17.8, albumin 1.7 - consulted dietary, continue to feeding for now hypernatremia, on hypotonic saline Hypokalemia, repleted / DVT prophylaxis SCD to BLE while in bed, prophylactic heparin Disposition: wait for final ID recommendation for d/c abx coverage Brief History: 67 YO Male Residential Facility Resident as [facility] with HTN, CVA, Obstructive Uropathy, Contracture, Decubitus Ulcers, AR, DM, OA, Seizure Disorder, COPD, Dementia, Debility, BPH presented to ED for evaluation, As per staff, the patient was found to have decreased responsiveness compared to baseline. Pt seen and evaluated in ED and found to have Sepsis secondary to UTI with concomitant RUL Pneumonia with a QSofa score of 8( GCS:3, MAP less than 70, Creatnine:2.1), Encephalopathy, and symptomatic anemia. Pt admitted to ICU and initiated on Sepsis protocol. Radiological data: Chest x-ray: Limited exam. Mild cardiomegaly. The lungs are grossly clear although there is poor visualization of the right upper lobe. Hospitalist Physical exam: GENERAL: Elderly male lying on bed appeared to be in no discomfort. It appears to be very lethargic and aphasic HEENT: Normocephalic. Atraumatic. No conjunctival congestion or icterus. Patient has moist mucous membranes. NECK: Supple. Trachea midline. CHEST/LUNGS: Clear to auscultated bilaterally, breathing nonlabored. No wheezes crackles or rhonchi. HEART/CARDIOVASCULAR: Regular in rate and rhythm. S1 and S2 positive. ABDOMEN: Abdomen is soft, nontender. Patient has normal bowel sounds. SKIN: There is no rash. Warm and dry. NEURO: Does not Follow command. MUSCULOSKELETAL: No joint effusion, generalized weakness unable to move extremities EXTRIMITY: No edema, no cyanosis or clubbing. PSYCH: Unable to assess. Subjective Date of service: 10/07/18 Principal diagnosis: Septic shock; Ac encephalopathy; Multiple decubitus ulcers; Ac renal failur Interval history: Patient seen and examined. Medical records and medication list reviewed. No acute event overnight noted by the RN. Patient unable to provide any history with severe dementia Patient on nasal cannula , on tube feeding, no sign of active bleeding off pressor now, H/h stable Discussed plan of care at bedside with RN. Transfer pt to telemetry Objective - Constitutional Vitals: Vital Signs - 12hr 10/07/18 10/07/18 10/07/18 02:45 03:00 03:15 Temperature Pulse Rate 81 91 H 117 H Pulse Rate [ From Monitor] Respiratory 24 14 24 Rate Blood Pressure 149/67 148/75 148/75 O2 Sat by Pulse 99 99 96 Oximetry 10/07/18 10/07/18 10/07/18 03:31 03:45 04:00 Temperature 99.3 F Pulse Rate 113 H 101 H 103 H Pulse Rate [ 83 From Monitor] Respiratory 41 H 22 25 H Rate Blood Pressure 148/75 148/75 141/83 O2 Sat by Pulse 93 96 98 Oximetry 10/07/18 10/07/18 10/07/18 04:15 04:31 04:45 Temperature Pulse Rate 100 H 90 85 Pulse Rate [ From Monitor] Respiratory 21 21 22 Rate Blood Pressure 141/83 141/83 141/83 O2 Sat by Pulse 97 99 100 Oximetry 10/07/18 10/07/18 10/07/18 05:00 05:15 05:30 Temperature Pulse Rate 93 H 90 91 H Pulse Rate [ From Monitor] Respiratory 28 H 26 H 26 H Rate Blood Pressure 150/90 150/90 150/90 O2 Sat by Pulse 100 100 100 Oximetry 10/07/18 10/07/18 10/07/18 05:45 06:00 06:15 Temperature Pulse Rate 88 92 H 87 Pulse Rate [ From Monitor] Respiratory 23 17 20 Rate Blood Pressure 150/90 151/82 151/82 O2 Sat by Pulse 100 99 100 Oximetry 10/07/18 10/07/18 10/07/18 06:31 06:45 07:00 Temperature Pulse Rate 93 H 92 H 90 Pulse Rate [ From Monitor] Respiratory 21 21 19 Rate Blood Pressure 151/82 151/82 145/77 O2 Sat by Pulse 100 99 Oximetry 10/07/18 08:00 Temperature Pulse Rate Pulse Rate [ 88 From Monitor] Respiratory 20 Rate Blood Pressure O2 Sat by Pulse 100 Oximetry - Labs CBC & Chem 7: 10/07/18 05:06 10/07/18 05:06 Labs: Abnormal lab results 10/06/18 10/07/18 10/07/18 Range/Units 18:44 05:06 05:06 Hgb 8.2 L (11.8-15.2) gm/dl Hct 25.8 L (35.5-45.6) % Chloride 112.2 H (98-107) mmol/L Carbon Dioxide 21 L (22-30) mmol/L BUN 43 H (9-20) mg/dL POC Glucose 125 H (70-105) Calcium 8.3 L (8.4-10.2) mg/dL Vancomycin Trough (5.0-20.0) ug/mL 10/07/18 Range/Units 08:34 Hgb (11.8-15.2) gm/dl Hct (35.5-45.6) % Chloride (98-107) mmol/L Carbon Dioxide (22-30) mmol/L BUN (9-20) mg/dL POC Glucose (70-105) Calcium (8.4-10.2) mg/dL Vancomycin Trough 23.0 H (5.0-20.0) ug/mL
[2018-10-07] MEDS: THERAGRAN Tab PO SCH (14:39)
[2018-10-07] MEDS ORDERED: APRESOLINE IV PRN (15:12)
[2018-10-07] MEDS ORDERED: SIMPLE SYRUP FEEDTUBE PRN ×2 (15:21)
[2018-10-07] MEDS ORDERED: PANCREAZE DR 10,500 UNIT FEEDTUBE PRN (15:21)
[2018-10-07] MEDS ORDERED: SODIUM BICARBONATE FEEDTUBE PRN (15:21)
[2018-10-07] MEDS: SODIUM CHLORIDE FLUSH SYRINGE 10 ML IV SCH (22:04)
[2018-10-08 05:53] LABS: BUN/Creatinine Ratio 46; Blood Urea Nitrogen 37 mg/dL (9-20); Calcium 8.3 mg/dL (8.4-10.2); Hemolysis Index 0
--- NOTE | 2018-10-08 08:49 | Progress Note ---
Assessment and Plan 1. Acute kidney injury: Vasomotor / hemodynamic MÓNICA in the setting of hypotension, sepsis and volume depletion. Renal function is improving. Monitor renal function. Avoid nephrotoxic agents. Meds dosage based on GFR. 2. FEN: Hyperkalemia, Kayexalate ordered. Hypernatremia, improving. Monitor lytes. 3. Sepsis with shock: Off pressors. 4. Anemia: PRBC. 5. Multiple decubitus ulcers. 6. Encephalopathy. Subjective Date of service: 10/08/18 Principal diagnosis: Septic shock; Ac encephalopathy; Multiple decubitus ulcers; Ac renal failur Interval history: Patient was seen and examined at the bedside. Objective - Vital Signs Vital signs: Vital Signs - 12hr 10/07/18 10/08/18 10/08/18 20:55 00:00 00:14 Temperature 97.8 F 98.9 F Pulse Rate 104 H Respiratory 20 Rate Blood Pressure 105/66 O2 Sat by Pulse 100 98 Oximetry 10/08/18 10/08/18 05:22 07:35 Temperature 99.0 F 98.8 F Pulse Rate 103 H 107 H Respiratory 20 18 Rate Blood Pressure 125/72 149/59 O2 Sat by Pulse 99 96 Oximetry - General Appearance General appearance: well-developed, appears stated age, other (not in distress) EENT: ATNC, PERRL Neck: other (Trachea midline) Respiratory: Present: Clear to Ascultation Cardiology: regular, S1S2, no murmurs Gastrointestinal: normoactive bowel sounds, no tenderness, no distended, other (PEG tube noted) Integumentary: ulcer, decubiti Neurologic: other (alert, not following any command) Musculoskeletal: other (contractures noted, dependent edema noted) - Lab 10/08/18 11:09 10/09/18 05:48 Most recent lab results Calcium 8.3 mg/dL (8.4-10.2) L 10/08/18 05:07 Phosphorus 3.80 mg/dL (2.5-4.5) 10/08/18 05:07 Magnesium 2.50 mg/dL (1.7-2.3) H 10/08/18 05:07 74.7 mg/dL (0.1-20.0) H 10/02/18 04:45 21 mmol/L 10/02/18 04:45 Medications & Allergies - Medications Allergies/Adverse Reactions: Allergies lisinopril Allergy (Verified 10/01/18 15:17) Unknown tramadol Allergy (Verified 07/29/18 18:39) Unknown Home Medications: Home Medications Medication Instructions Recorded Confirmed Last Taken Type Multivit-Min/Iron Fum/Folic AC 1 each PO DAILY 03/24/18 10/03/18 Unknown History [Popxq-[id number]-[id number] Tablet] Acetaminophen 650 mg NGTUBE Q6H PRN 07/30/18 10/03/18 Unknown History AtorvaSTATin [Lipitor] 40 mg NGTUBE QHS 07/30/18 10/03/18 Unknown History Dutasteride 0.5 mg NGTUBE QAM 07/30/18 10/03/18 Unknown History Ipratropium/Albuterol Sulfate 1 ampul IH BID 07/30/18 10/03/18 Unknown History [DUONEB *Not for PRN Use*] Lisinopril [Zestril TAB] 40 mg PO QDAY 07/30/18 10/03/18 Unknown History Tamsulosin [Flomax] 0.4 mg PO QDAY 07/30/18 10/03/18 Unknown History Vit C/Ascorbate Calcium,Sodium 500 mg NGTUBE BID 07/30/18 10/03/18 Unknown History [Vitamin C 500 mg/15 ml Liquid] Zinc Sulfate 220 mg NGTUBE QDAY 07/30/18 10/03/18 Unknown History levETIRAcetam [Keppra INJ] 500 mg PO Q12H 07/30/18 10/03/18 Unknown History Carvedilol [Coreg] 3.125 mg PO BID #60 tablet 08/23/18 10/03/18 Unknown Rx Furosemide [Lasix] 20 mg PO QDAY #30 tablet 08/23/18 10/03/18 Unknown Rx Oxycodone HCl/Acetaminophen 1 each PO Q8HR PRN #14 tablet 08/23/18 10/03/18 Unknown Rx [Percocet 7.5/325 mg] Phosphorus #1 [K-Phos Neutral] 250 mg PO QID #30 tablet 08/23/18 10/03/18 Unknown Rx hydroCHLOROthiazide [HCTZ] 12.5 mg PO QDAY #30 tablet 08/23/18 10/03/18 Unknown Rx Active Medications: Generic Name Dose Route Start Last Admin Trade Name Freq PRN Reason Stop Dose Admin Acetaminophen 650 mg 10/01/18 15:32 Tylenol FEEDTUBE Q6H PRN Pain, Moderate (4-6) Albuterol 2.5 mg 10/01/18 17:40 10/04/18 21:02 Proventil IH 2.5 mg Q3HRT PRN Administration Shortness Of Breath Lipase/Protease/Amylase 1 each 10/04/18 14:58 Pancreaze 10,500 Unit FEEDTUBE PRN PRN For Clogged Feeding Tube Ascorbic Acid 500 mg 10/04/18 10:00 10/07/18 22:00 Vitamin C FEEDTUBE 500 mg BID NORA Administration Atorvastatin Calcium 40 mg 10/01/18 22:00 10/07/18 22:00 Lipitor FEEDTUBE 40 mg QHS NORA Administration Clonidine HCl 0.2 mg 10/08/18 10:00 Catapres-Tts Patch TD Tu NORA Famotidine 20 mg 10/03/18 12:00 10/07/18 10:22 Pepcid PO 20 mg DAILY NORA Administration Heparin Sodium (Porcine) 5,000 unit 10/01/18 22:00 10/07/18 22:00 Heparin SUB-Q 5,000 unit Q12HR NORA Administration Hydralazine HCl 10 mg 10/07/18 15:12 10/07/18 18:00 Apresoline IV 10 mg Q4HR PRN Administration Blood Pressure Vancomycin HCl 1 gm in 250 mls @ 167.007 mls/hr 10/08/18 10:00 Vancomycin/Ns 1 Gm/250 Ml IV Q48HR NORA Levetiracetam 500 mg 10/01/18 22:00 10/07/18 22:00 Keppra PO 500 mg BID NORA Administration Multivitamins 1 each 10/02/18 10:00 10/07/18 14:39 Theragran Tab PO 1 each DAILY NORA Administration Oxycodone/Acetaminophen 1 tab 10/02/18 20:16 10/07/18 14:39 Percocet 5/325 PO 1 tab Q4H PRN Administration Pain, Moderate (4-6) Simple Syrup 15 ml 10/02/18 10:35 Simple Syrup FEEDTUBE PRN PRN Hypoglycemia Simple Syrup 30 ml 10/02/18 10:35 Simple Syrup FEEDTUBE PRN PRN Hypoglycemia Sodium Bicarbonate 325 mg 10/02/18 10:35 Sodium Bicarbonate FEEDTUBE PRN PRN For Clogged Feeding Tube Sodium Chloride 10 ml 10/01/18 22:00 10/07/18 22:04 Sodium Chloride Flush Syringe 10 Ml IV 10 ml BID NORA Administration Sodium Chloride 10 ml 10/01/18 17:40 10/05/18 21:30 Sodium Chloride Flush Syringe 10 Ml IV 10 ml PRN PRN Administration LINE FLUSH Zinc Sulfate 220 mg 10/02/18 10:00 10/07/18 10:23 Zinc Sulfate PO 220 mg QDAY NORA Administration
[2018-10-08] MEDS: KEPPRA PO SCH ×2 (09:52→22:35)
[2018-10-08] MEDS: THERAGRAN Tab PO SCH (09:52)
[2018-10-08] MEDS: PEPCID PO SCH (09:52)
[2018-10-08] MEDS: SODIUM CHLORIDE FLUSH SYRINGE 10 ML IV SCH ×3 (09:52→22:35)
[2018-10-08] MEDS: CATAPRES-TTS PATCH TD SCH (09:52)
[2018-10-08] MEDS: VITAMIN C FEEDTUBE SCH ×2 (09:52→22:35)
[2018-10-08] MEDS: VANCOMYCIN/NS 1 GM/250 ML 1 GM/250 ML BAG IV SCH (10:00)
[2018-10-08] MEDS: ZINC SULFATE PO SCH (10:00)
[2018-10-08] MEDS ORDERED: KIONEX PO ONE (10:00)
[2018-10-08] MEDS: HEPARIN SUB-Q SCH ×2 (10:12→22:35)
--- NOTE | 2018-10-08 10:49 | Progress Note ---
Assessment and Plan Cultures: Blood culture 10/01/2018 MRSA 2 of 4. Blood culture 10/03/2018 no growth Assessment: 67 y/o male with history of HTN, CVA, obstructive uropathy, contractures, multiple decubitus ulcers, WI, DM, OA, seizure Disorder, COPD, dementia, debility, BPH, well known to ID service due to multiple admissions from decubitus ulcers infections, resident of longterm, admitted due to decreased responsiveness compared to baseline and hypotension. SBP in 60's: 1) Severe Sepsis with septic shock: improving, off pressors since 10/04. Etiology most likely Staph aureus bacteremia. Last fever 10/05/18. 2) Staph aureus (MRSA) bacteremia: source likely multiple decubitus or UTI. Blood culture 10/01/2018 S. aureus 2 of 4. Repeat blood cultures show no growth. TTE no valvular vegetation. 3) Recent septic shock due to polymicrobial bacteremia ESBL E coli, MDR Proteus, Strep and E faecalis on 07/29/2018 probably from multiple infected decubitus ulcers and less likely UTI. Repeat blood cultures 07/31/2018 showed same MDR E coli 1 of 4 bottles then 08/06/2018 blood cultures showed no growth. Patient did not respond to carbapenem and was placed on Vabomere for 14 days. 4) Multiple infected decubitus ulcers: currently active large left trochanteric with bone exposure and sacral with bone exposure. His prognosis has been poor and discussed previously with family hospice indication, but they declined. His wounds are not curable considering his contractures, bed bound status and poor nutritional status. There was also suspicion of septic arthritis of left hip from decubitus ulcer. 5) Recurrent CA-UTI. 6) Acute encephalopathy: resolved. 7) MÓNICA: resolved Recommendations: - Continue wound care. - Continue vancomycin D7 for MRSA bacteremia. - WBC tagged scan ordered Overall prognosis very poor. Jacquie Jean Baptiste NP [facility] M: [phone] O:[phone] Subjective Date of service: 10/08/18 Principal diagnosis: Septic shock; Ac encephalopathy; Multiple decubitus ulcers; Ac renal failur Interval history: Patient seen examined. Wound care nurse at bedside. Acute distress observed. No fever. Objective - Exam Narrative Exam: General appearance: Alert. Acute distress , Wound care nurse at bedside doing dressing changes Eyes: anicteric sclerae, moist conjunctivae; no lid-lag; PERRLA. HENT: Atraumatic; oropharynx limited. Neck: Trachea midline; supple, no thyromegaly or lymphadenopathy. Lungs: scattered rhonchi. CV: S1,S2. Abdomen: Soft, non-tender; PEG in place. : Condom catheter Extremities: Bilateral contracted legs, multiple wounds covered. Skin: multiple skin tears Psych: moans Neuro: alert Lines: right PICC - Constitutional Vitals: Vital Signs Temp Pulse Resp BP Pulse Ox 98.8 F 107 H 18 149/59 99 10/08/18 07:35 10/08/18 07:35 10/08/18 07:35 10/08/18 07:35 10/08/18 10:31 Temperature -Last 24 Hours Temperature 98.8 F Temperature 99.0 F Temperature 98.9 F Temperature 97.8 F - Labs CBC & Chem 7: 10/08/18 11:09 10/08/18 05:07 Labs: Abnormal lab results 10/08/18 Range/Units 05:07 Potassium 5.1 H (3.6-5.0) mmol/L Chloride 111.8 H (98-107) mmol/L BUN 37 H (9-20) mg/dL Glucose 101 H (75-100) mg/dL Calcium 8.3 L (8.4-10.2) mg/dL Magnesium 2.50 H (1.7-2.3) mg/dL
[2018-10-08 11:58] LABS: Basophils % (Auto) 0.3 % (0.0-1.8); Eosinophils # (Auto) 0.6 K/mm3 (0.0-0.4); Eosinophils % (Auto) 5.9 % (0.0-4.3); Hematocrit 24.5 % (35.5-45.6); Lymphocytes # (Auto) 0.8 K/mm3 (1.2-5.4); Lymphocytes % (Auto) 7.8 % (13.4-35.0); Mean Corpuscular HGB Conc 33 % (32-34); Mean Corpuscular Volume 86 fl (84-94); Monocytes # (Auto) 0.9 K/mm3 (0.0-0.8); Monocytes % (Auto) 8.2 % (0.0-7.3); Platelet Count 421 K/mm3 (140-440); Red Blood Count 2.86 M/mm3 (3.65-5.03); Red Cell Distribution Width 18.7 % (13.2-15.2)
--- NOTE | 2018-10-08 12:11 | Progress Note ---
Assessment and Plan / Severe sepsis with shock, POA due to bacteremia, UTI and RUL PNA continue Sepsis Protocol: IV antibiotic therapy, IVF resuscitation therapy, follow final Blood cultures, s/p IV pressors , ID consulted Per ID: - Continue vancomycin now for MRSA bacteremia. - treated with meropenem for 5 days to cover UTI as urine culture was not sent a nd he has h/o MDR GNRs /MRSA bacteremia - possible source infected decubitus ulcer - cont vanc, ID following, 2d echo showed no vegetation /Decubitus ulcer, multiple with different stages - cont wound care, abx per ID /Anemia, s/p 2 units blood transfusion, likely AOCD ans severe sepsis - stool for occult blood negative, cont to monitor / MÓNICA with vasomotor nephropathy IVF resuscitation therapy, monitor uop q shift, repeat bmp in am, nephrology consulted in ED. /Right upper lobe Pneumonia, suspect aspiration Treated with IV antibiotic therapy, supplemental oxygen, pulse oximetry, / Elevated troponin Likely due to sepsis with low blood pressure and renal failure Monitor with Serial cardiac enzymes, Cardiology consulted in ED, No EKG changes, supportive care, / UTI (lower urinary tract infection) Treated with IV antibiotic therapy, IV fluids /Acute hypoxic Respiratory failure Likely due to underlying pneumonia Continue to provide Supplemental oxygen, nebulizer therapy, NIPPV as clinically indicated, pulse oximetry, /Moderate to severe protein calorie malnutrition - BMI 17.8, albumin 1.7 - consulted dietary, continue tube feeding for now hypernatremia, on hypotonic saline Hypokalemia, repleted /Hypertension, place on clonidine patch / DVT prophylaxis SCD to BLE while in bed, prophylactic heparin Disposition: wait for final ID recommendation for d/c abx coverage Brief History: 67 YO Male [facility] Facility Resident as [facility] with HTN, CVA, Obstructive Uropathy, Contracture, Decubitus Ulcers, [place], DM, OA, Seizure Disorder, COPD, Dementia, Debility, BPH presented to ED for evaluation, As per staff, the patient was found to have decreased responsiveness compared to baseline. Pt seen and evaluated in ED and found to have Sepsis secondary to UTI with concomitant RUL Pneumonia with a QSofa score of 8( GCS:3, MAP less than 70, Creatnine:2.1), Encephalopathy, and symptomatic anemia. Pt admitted to ICU and initiated on Sepsis protocol. Radiological data: Chest x-ray: Limited exam. Mild cardiomegaly. The lungs are grossly clear although there is poor visualization of the right upper lobe. 2-D echo: Preserved EF with abnormal left ventricular diastolic filling pressure Hospitalist Physical exam: GENERAL: Elderly male lying on bed appeared to be in no discomfort. It appears to be very lethargic and aphasic HEENT: Normocephalic. Atraumatic. No conjunctival congestion or icterus. Patient has moist mucous membranes. NECK: Supple. Trachea midline. CHEST/LUNGS: Clear to auscultated bilaterally, breathing nonlabored. No wheezes crackles or rhonchi. HEART/CARDIOVASCULAR: Regular in rate and rhythm. S1 and S2 positive. ABDOMEN: Abdomen is soft, nontender. Patient has normal bowel sounds. SKIN: There is no rash. Warm and dry. NEURO: Does not Follow command. MUSCULOSKELETAL: No joint effusion, generalized weakness unable to move extremities EXTRIMITY: No edema, no cyanosis or clubbing. PSYCH: Unable to assess. Subjective Date of service: 10/08/18 Principal diagnosis: Septic shock; Ac encephalopathy; Multiple decubitus ulcers; Ac renal failur Interval history: Patient seen and examined. Medical records and medication list reviewed. No acute event overnight noted by the RN. Patient unable to provide any history with severe dementia Patient on nasal cannula , on tube feeding, no sign of active bleeding Discussed plan of care at bedside with RN. Objective - Constitutional Vitals: Vital Signs - 12hr 10/08/18 10/08/18 10/08/18 00:14 05:22 07:35 Temperature 98.9 F 99.0 F 98.8 F Pulse Rate 104 H 103 H 107 H Respiratory 20 20 18 Rate Blood Pressure 105/66 125/72 149/59 O2 Sat by Pulse 98 99 96 Oximetry 10/08/18 10:31 Temperature Pulse Rate Respiratory Rate Blood Pressure O2 Sat by Pulse 99 Oximetry - Labs CBC & Chem 7: 10/08/18 11:09 10/09/18 05:48 Labs: Abnormal lab results 10/08/18 10/08/18 Range/Units 05:07 11:09 RBC 2.86 L (3.65-5.03) M/mm3 Hgb 8.0 L (11.8-15.2) gm/dl Hct 24.5 L (35.5-45.6) % RDW 18.7 H (13.2-15.2) % Lymph % (Auto) 7.8 L (13.4-35.0) % Motley % (Auto) 8.2 H (0.0-7.3) % Eos % (Auto) 5.9 H (0.0-4.3) % Lymph # 0.8 L (1.2-5.4) K/mm3 Motley # 0.9 H (0.0-0.8) K/mm3 Eos # 0.6 H (0.0-0.4) K/mm3 Seg Neutrophils % 77.8 H (40.0-70.0) % Seg Neutrophils # 8.2 H (1.8-7.7) K/mm3 Potassium 5.1 H (3.6-5.0) mmol/L Chloride 111.8 H (98-107) mmol/L BUN 37 H (9-20) mg/dL Glucose 101 H (75-100) mg/dL Calcium 8.3 L (8.4-10.2) mg/dL Magnesium 2.50 H (1.7-2.3) mg/dL
--- NOTE | 2018-10-08 19:13 | Progress Note ---
Assessment and Plan Patient sleeping , not responding to verbal stimuli. Patient contracted. Patient is on 3 litres O2.O2 saturation 98%. - Patient Problems (1) Acute respiratory failure with hypoxia Current Visit: Yes Status: Acute Plan to address problem: O2 3 litres via nasal canula. Albuterol aerosol treatments q 6 hours. Continue S/C Heparin Continue famotidine. (2) Sepsis Current Visit: Yes Status: Acute Qualifiers: Sepsis type: sepsis due to unspecified organism Qualified Code(s): A41.9 - Sepsis, unspecified organism Plan to address problem: Patient is on vancomycin. (3) Decubitus ulcer Current Visit: No Status: Acute Plan to address problem: Wound care consultation. Patient is on vancomycin. (4) Diabetes Current Visit: No Status: Acute Plan to address problem: Management as per primary care. (5) HTN (hypertension) Current Visit: No Status: Acute Qualifiers: Hypertension type: essential hypertension Qualified Code(s): I10 - Essential (primary) hypertension Plan to address problem: Management as per primary care. Subjective Date of service: 10/08/18 Principal diagnosis: Septic shock; Ac encephalopathy; Multiple decubitus ulcers; Ac renal failur Interval history: Patient sleeping , not responding to verbal stimuli. Patient contracted. Patient is on 3 litres O2.O2 saturation 98%. Objective Vital Signs - 12hr 10/08/18 10/08/18 10/08/18 07:35 10:31 16:25 Temperature 98.8 F 98.5 F Pulse Rate 107 H 107 H Respiratory 18 18 Rate Blood Pressure 149/59 186/97 O2 Sat by Pulse 96 99 98 Oximetry Constitutional: no acute distress, other (elderly looking AAM, normocephalic but contrated and with mildly increased work of breathing at rest) Eyes: non-icteric ENT: oropharynx moist Neck: no lymphadenopathy, no JVD, other (neck stiff and deviated to the right si de) Effort: mildly labored Ascultation: Bilateral: diminished breath sounds, rhonchi (scant) Percussion: Bilateral: not dull Cardiovascular: regular rate and rhythm Gastrointestinal: normoactive bowel sounds, soft, non-tender, non-distended, other (PEG tube) Integumentary: rash Extremities: no cyanosis, pulses normal, no ischemia or petechiae Neurologic: pupils equal and round, other (tardive dyskinetic movts) Psychiatric: other (unable to assess) CBC and BMP: 10/08/18 11:09 10/08/18 05:07 ABG, PT/INR, D-dimer: ABG POC ABG pH 7.480 (7.35-7.45) H 10/01/18 18:12 POC ABG pO2 64 (80-105) L 10/01/18 18:12 POC ABG HCO3 21.0 (22-26 mml/L) 10/01/18 18:12 POC ABG Total CO2 22 (23-27mmol/L) 10/01/18 18:12 POC ABG O2 Sat 94 10/01/18 18:12 Abnormal lab findings: Abnormal Labs 10/01/18 10/01/18 10/01/18 14:29 14:29 15:13 WBC 18.5 H RBC 2.68 L Hgb 7.3 L Hct 23.1 L MCH 27 L MCHC 31 L RDW 19.3 H Plt Count 522 H Lymph % (Auto) 6.7 L [place] % (Auto) Eos % (Auto) Lymph # [place] # 1.2 H Eos # Seg Neutrophils % 85.0 H Seg Neuts % (Manual) Lymphocytes % (Manual) Seg Neutrophils # 15.7 H Seg Neutrophils # Man Lymphocytes # (Manual) POC ABG pH POC ABG pO2 Sodium 148 H Potassium 3.3 L Chloride Carbon Dioxide BUN 98 H Creatinine 2.0 H Glucose 142 H POC Glucose Lactic Acid Calcium Phosphorus Magnesium AST Alkaline Phosphatase Troponin T 0.361 H* C-Reactive Protein Albumin Cholesterol 36 L LDL Cholesterol Direct 6 L HDL Cholesterol 21 L Urine WBC (Auto) > 182.0 H Urine Creatinine Vancomycin Trough Crossmatch 10/01/18 10/01/18 10/01/18 15:15 15:15 17:03 WBC RBC Hgb Hct MCH MCHC RDW Plt Count Lymph % (Auto) [place] % (Auto) Eos % (Auto) Lymph # [place] # Eos # Seg Neutrophils % Seg Neuts % (Manual) Lymphocytes % (Manual) Seg Neutrophils # Seg Neutrophils # Man Lymphocytes # (Manual) POC ABG pH POC ABG pO2 Sodium 150 H Potassium Chloride Carbon Dioxide BUN 94 H Creatinine 2.1 H Glucose 132 H POC Glucose Lactic Acid 2.60 H* 2.20 H* Calcium 7.8 L Phosphorus Magnesium AST 47 H Alkaline Phosphatase 179 H Troponin T C-Reactive Protein Albumin 2.1 L Cholesterol LDL Cholesterol Direct HDL Cholesterol Urine WBC (Auto) Urine Creatinine Vancomycin Trough Crossmatch 10/01/18 10/01/18 10/01/18 18:12 18:23 18:23 WBC RBC Hgb Hct MCH MCHC RDW Plt Count Lymph % (Auto) [place] % (Auto) Eos % (Auto) Lymph # [place] # Eos # Seg Neutrophils % Seg Neuts % (Manual) Lymphocytes % (Manual) Seg Neutrophils # Seg Neutrophils # Man Lymphocytes # (Manual) POC ABG pH 7.480 H POC ABG pO2 64 L Sodium Potassium Chloride Carbon Dioxide BUN Creatinine Glucose POC Glucose Lactic Acid Calcium Phosphorus Magnesium 3.30 H AST Alkaline Phosphatase Troponin T 0.378 H* C-Reactive Protein Albumin Cholesterol LDL Cholesterol Direct HDL Cholesterol Urine WBC (Auto) Urine Creatinine Vancomycin Trough Crossmatch 10/01/18 10/01/18 10/01/18 18:48 21:20 23:48 WBC RBC Hgb Hct MCH MCHC RDW Plt Count Lymph % (Auto) [place] % (Auto) Eos % (Auto) Lymph # [place] # Eos # Seg Neutrophils % Seg Neuts % (Manual) Lymphocytes % (Manual) Seg Neutrophils # Seg Neutrophils # Man Lymphocytes # (Manual) POC ABG pH POC ABG pO2 Sodium Potassium Chloride Carbon Dioxide BUN Creatinine Glucose POC Glucose Lactic Acid 2.30 H* 2.70 H* Calcium Phosphorus Magnesium AST Alkaline Phosphatase Troponin T 0.336 H* C-Reactive Protein Albumin Cholesterol LDL Cholesterol Direct HDL Cholesterol Urine WBC (Auto) Urine Creatinine Vancomycin Trough Crossmatch 10/01/18 10/02/18 10/02/18 23:48 04:45 04:45 WBC 18.3 H RBC 2.40 L Hgb 6.4 L Hct 20.4 L MCH 27 L MCHC 31 L RDW 19.1 H Plt Count 462 H Lymph % (Auto) [place] % (Auto) Eos % (Auto) Lymph # [place] # Eos # Seg Neutrophils % Seg Neuts % (Manual) 78.0 H Lymphocytes % (Manual) 5.0 L Seg Neutrophils # Seg Neutrophils # Man 14.3 H Lymphocytes # (Manual) 0.9 L POC ABG pH POC ABG pO2 Sodium Potassium Chloride Carbon Dioxide BUN Creatinine Glucose POC Glucose Lactic Acid 2.50 H* Calcium Phosphorus Magnesium AST Alkaline Phosphatase Troponin T C-Reactive Protein Albumin Cholesterol LDL Cholesterol Direct HDL Cholesterol Urine WBC (Auto) Urine Creatinine 74.7 H Vancomycin Trough Crossmatch 10/02/18 10/02/18 10/02/18 04:45 04:45 04:45 WBC RBC Hgb Hct MCH MCHC RDW Plt Count Lymph % (Auto) [place] % (Auto) Eos % (Auto) Lymph # [place] # Eos # Seg Neutrophils % Seg Neuts % (Manual) Lymphocytes % (Manual) Seg Neutrophils # Seg Neutrophils # Man Lymphocytes # (Manual) POC ABG pH POC ABG pO2 Sodium 148 H Potassium 3.1 L Chloride 108.6 H Carbon Dioxide 21 L BUN 89 H Creatinine 1.8 H Glucose POC Glucose Lactic Acid 2.10 H* Calcium 8.3 L Phosphorus 5.00 H Magnesium AST Alkaline Phosphatase 161 H Troponin T C-Reactive Protein Albumin 1.7 L Cholesterol LDL Cholesterol Direct HDL Cholesterol Urine WBC (Auto) Urine Creatinine Vancomycin Trough Crossmatch 10/02/18 10/02/18 10/03/18 09:46 11:47 00:03 WBC RBC Hgb Hct MCH MCHC RDW Plt Count Lymph % (Auto) [place] % (Auto) Eos % (Auto) Lymph # [place] # Eos # Seg Neutrophils % Seg Neuts % (Manual) Lymphocytes % (Manual) Seg Neutrophils # Seg Neutrophils # Man Lymphocytes # (Manual) POC ABG pH POC ABG pO2 Sodium Potassium Chloride Carbon Dioxide BUN Creatinine Glucose POC Glucose 112 H 106 H Lactic Acid Calcium Phosphorus Magnesium AST Alkaline Phosphatase Troponin T C-Reactive Protein Albumin Cholesterol LDL Cholesterol Direct HDL Cholesterol Urine WBC (Auto) Urine Creatinine Vancomycin Trough Crossmatch See Detail 10/03/18 10/03/18 10/03/18 06:06 06:45 06:45 WBC 17.3 H RBC 2.81 L Hgb 7.6 L Hct 24.1 L MCH 27 L MCHC 31 L RDW 18.4 H Plt Count 473 H Lymph % (Auto) 5.2 L [place] % (Auto) Eos % (Auto) 4.6 H Lymph # 0.9 L [place] # Eos # 0.8 H Seg Neutrophils % 85.7 H Seg Neuts % (Manual) Lymphocytes % (Manual) Seg Neutrophils # 14.8 H Seg Neutrophils # Man Lymphocytes # (Manual) POC ABG pH POC ABG pO2 Sodium 148 H Potassium Chloride 112.1 H Carbon Dioxide 21 L BUN 79 H Creatinine 1.7 H Glucose 116 H POC Glucose 130 H Lactic Acid Calcium 7.9 L Phosphorus Magnesium AST Alkaline Phosphatase Troponin T C-Reactive Protein Albumin Cholesterol LDL Cholesterol Direct HDL Cholesterol Urine WBC (Auto) Urine Creatinine Vancomycin Trough Crossmatch 10/03/18 10/03/18 10/03/18 11:50 17:42 23:20 WBC RBC Hgb Hct MCH MCHC RDW Plt Count Lymph % (Auto) [place] % (Auto) Eos % (Auto) Lymph # [place] # Eos # Seg Neutrophils % Seg Neuts % (Manual) Lymphocytes % (Manual) Seg Neutrophils # Seg Neutrophils # Man Lymphocytes # (Manual) POC ABG pH POC ABG pO2 Sodium Potassium Chloride Carbon Dioxide BUN Creatinine Glucose POC Glucose 126 H 118 H 106 H Lactic Acid Calcium Phosphorus Magnesium AST Alkaline Phosphatase Troponin T C-Reactive Protein Albumin Cholesterol LDL Cholesterol Direct HDL Cholesterol Urine WBC (Auto) Urine Creatinine Vancomycin Trough Crossmatch 10/04/18 10/04/18 10/04/18 05:22 07:00 07:00 WBC 14.8 H RBC 2.38 L Hgb 6.4 L Hct 20.5 L MCH 27 L MCHC 31 L RDW 18.2 H Plt Count Lymph % (Auto) 5.3 L [place] % (Auto) Eos % (Auto) 9.5 H Lymph # 0.8 L [place] # Eos # 1.4 H Seg Neutrophils % 81.2 H Seg Neuts % (Manual) Lymphocytes % (Manual) Seg Neutrophils # 12.0 H Seg Neutrophils # Man Lymphocytes # (Manual) POC ABG pH POC ABG pO2 Sodium 148 H Potassium Chloride 112.0 H Carbon Dioxide BUN 73 H Creatinine Glucose 105 H POC Glucose 115 H Lactic Acid Calcium 8.1 L Phosphorus Magnesium AST Alkaline Phosphatase Troponin T C-Reactive Protein Albumin 1.5 L Cholesterol LDL Cholesterol Direct HDL Cholesterol Urine WBC (Auto) Urine Creatinine Vancomycin Trough Crossmatch 10/04/18 10/04/18 10/05/18 12:35 18:28 04:20 WBC 14.1 H RBC 2.94 L Hgb 8.2 L Hct 25.2 L MCH MCHC RDW 17.9 H Plt Count Lymph % (Auto) 6.6 L [place] % (Auto) Eos % (Auto) 6.4 H Lymph # 0.9 L [place] # Eos # 0.9 H Seg Neutrophils % 82.7 H Seg Neuts % (Manual) Lymphocytes % (Manual) Seg Neutrophils # 11.6 H Seg Neutrophils # Man Lymphocytes # (Manual) POC ABG pH POC ABG pO2 Sodium Potassium Chloride Carbon Dioxide BUN Creatinine Glucose POC Glucose 109 H 109 H Lactic Acid Calcium Phosphorus Magnesium AST Alkaline Phosphatase Troponin T C-Reactive Protein Albumin Cholesterol LDL Cholesterol Direct HDL Cholesterol Urine WBC (Auto) Urine Creatinine Vancomycin Trough Crossmatch 10/05/18 10/05/18 10/05/18 04:20 11:45 17:32 WBC RBC Hgb Hct MCH MCHC RDW Plt Count Lymph % (Auto) [place] % (Auto) Eos % (Auto) Lymph # [place] # Eos # Seg Neutrophils % Seg Neuts % (Manual) Lymphocytes % (Manual) Seg Neutrophils # Seg Neutrophils # Man Lymphocytes # (Manual) POC ABG pH POC ABG pO2 Sodium Potassium Chloride 110.0 H Carbon Dioxide 21 L BUN 64 H Creatinine Glucose POC Glucose 118 H 113 H Lactic Acid Calcium 8.3 L Phosphorus Magnesium AST Alkaline Phosphatase Troponin T C-Reactive Protein Albumin Cholesterol LDL Cholesterol Direct HDL Cholesterol Urine WBC (Auto) Urine Creatinine Vancomycin Trough Crossmatch 10/06/18 10/06/18 10/06/18 05:15 05:15 05:35 WBC 12.3 H RBC 2.77 L Hgb 7.6 L Hct 24.1 L MCH MCHC RDW 18.1 H Plt Count Lymph % (Auto) 4.9 L [place] % (Auto) Eos % (Auto) 7.3 H Lymph # 0.6 L [place] # Eos # 0.9 H Seg Neutrophils % 81.1 H Seg Neuts % (Manual) Lymphocytes % (Manual) Seg Neutrophils # 10.0 H Seg Neutrophils # Man Lymphocytes # (Manual) POC ABG pH POC ABG pO2 Sodium 146 H Potassium Chloride 112.1 H Carbon Dioxide BUN 57 H Creatinine Glucose 120 H POC Glucose 115 H Lactic Acid Calcium Phosphorus Magnesium AST Alkaline Phosphatase Troponin T C-Reactive Protein Albumin Cholesterol LDL Cholesterol Direct HDL Cholesterol Urine WBC (Auto) Urine Creatinine Vancomycin Trough Crossmatch 10/06/18 10/06/18 10/06/18 12:31 18:44 Unknown WBC RBC Hgb Hct MCH MCHC RDW Plt Count Lymph % (Auto) [place] % (Auto) Eos % (Auto) Lymph # [place] # Eos # Seg Neutrophils % Seg Neuts % (Manual) Lymphocytes % (Manual) Seg Neutrophils # Seg Neutrophils # Man Lymphocytes # (Manual) POC ABG pH POC ABG pO2 Sodium Potassium Chloride Carbon Dioxide BUN Creatinine Glucose POC Glucose 150 H 125 H Lactic Acid Calcium Phosphorus Magnesium AST Alkaline Phosphatase Troponin T C-Reactive Protein Albumin Cholesterol LDL Cholesterol Direct HDL Cholesterol Urine WBC (Auto) Urine Creatinine Vancomycin Trough 23.5 H Crossmatch 10/07/18 10/07/18 10/07/18 05:06 05:06 08:34 WBC RBC Hgb 8.2 L Hct 25.8 L MCH MCHC RDW Plt Count Lymph % (Auto) [place] % (Auto) Eos % (Auto) Lymph # [place] # Eos # Seg Neutrophils % Seg Neuts % (Manual) Lymphocytes % (Manual) Seg Neutrophils # Seg Neutrophils # Man Lymphocytes # (Manual) POC ABG pH POC ABG pO2 Sodium Potassium Chloride 112.2 H Carbon Dioxide 21 L BUN 43 H Creatinine Glucose POC Glucose Lactic Acid Calcium 8.3 L Phosphorus Magnesium AST Alkaline Phosphatase Troponin T C-Reactive Protein Albumin Cholesterol LDL Cholesterol Direct HDL Cholesterol Urine WBC (Auto) Urine Creatinine Vancomycin Trough 23.0 H Crossmatch 10/08/18 10/08/18 10/08/18 05:07 05:07 11:09 WBC RBC 2.86 L Hgb 8.0 L Hct 24.5 L MCH MCHC RDW 18.7 H Plt Count Lymph % (Auto) 7.8 L [place] % (Auto) 8.2 H Eos % (Auto) 5.9 H Lymph # 0.8 L [place] # 0.9 H Eos # 0.6 H Seg Neutrophils % 77.8 H Seg Neuts % (Manual) Lymphocytes % (Manual) Seg Neutrophils # 8.2 H Seg Neutrophils # Man Lymphocytes # (Manual) POC ABG pH POC ABG pO2 Sodium Potassium 5.1 H Chloride 111.8 H Carbon Dioxide BUN 37 H Creatinine Glucose 101 H POC Glucose Lactic Acid Calcium 8.3 L Phosphorus Magnesium 2.50 H AST Alkaline Phosphatase Troponin T C-Reactive Protein 11.40 H Albumin Cholesterol LDL Cholesterol Direct HDL Cholesterol Urine WBC (Auto) Urine Creatinine Vancomycin Trough Crossmatch Chest x-ray: report reviewed (Mild cardiomegaly, poor visualization of right upper lobe.), image reviewed Allied health notes reviewed: nursing
[2018-10-08] MEDS: PERCOCET 5/325 PO PRN (23:23)
[2018-10-09 07:34] LABS: BUN/Creatinine Ratio 49; Blood Urea Nitrogen 34 mg/dL (9-20); Calcium 8.4 mg/dL (8.4-10.2); Hemolysis Index 51
--- NOTE | 2018-10-09 09:06 | Progress Note ---
Assessment and Plan 1. Acute kidney injury: Vasomotor / hemodynamic MÓNICA in the setting of hypotension, sepsis and volume depletion. Renal function is improving. Monitor renal function. Avoid nephrotoxic agents. Meds dosage based on GFR. 2. FEN: Hyperkalemia, Kayexalate and HCTZ ordered. Hypernatremia, improving. Monitor lytes. 3. Sepsis with shock: MRSA bacteremia. Off pressors. 4. Anemia: PRBC. 5. Multiple decubitus wound. 6. Encephalopathy. Subjective Date of service: 10/09/18 Principal diagnosis: Septic shock; Ac encephalopathy; Multiple decubitus ulcers; Ac renal failur Interval history: Patient was seen and examined at the bedside. Objective - Vital Signs Vital signs: Vital Signs - 12hr 10/08/18 10/08/18 10/09/18 21:21 23:32 04:00 Temperature 98.0 F Pulse Rate 117 H 89 Respiratory 18 Rate Blood Pressure 160/93 O2 Sat by Pulse 99 96 Oximetry 10/09/18 10/09/18 04:52 08:00 Temperature 98.0 F 98.7 F Pulse Rate 108 H 106 H Respiratory 18 18 Rate Blood Pressure 157/91 193/99 O2 Sat by Pulse 96 95 Oximetry - General Appearance General appearance: well-developed, appears stated age, other (not in distress) EENT: ATNC Respiratory: Present: Clear to Ascultation Cardiology: regular, S1S2, no murmurs Gastrointestinal: normoactive bowel sounds, no tenderness, no distended, other (PEG tube noted) Integumentary: ulcer, decubiti Neurologic: other (not following any command) Musculoskeletal: other (contractures noted, dependent edema noted) - Lab 10/10/18 09:02 10/10/18 09:02 Most recent lab results Calcium 8.4 mg/dL (8.4-10.2) 10/09/18 05:48 Phosphorus 3.80 mg/dL (2.5-4.5) 10/08/18 05:07 Magnesium 2.50 mg/dL (1.7-2.3) H 10/08/18 05:07 74.7 mg/dL (0.1-20.0) H 10/02/18 04:45 21 mmol/L 10/02/18 04:45 Medications & Allergies - Medications Allergies/Adverse Reactions: Allergies lisinopril Allergy (Verified 10/01/18 15:17) Unknown tramadol Allergy (Verified 07/29/18 18:39) Unknown Home Medications: Home Medications Medication Instructions Recorded Confirmed Last Taken Type Multivit-Min/Iron Fum/Folic AC 1 each PO DAILY 03/24/18 10/03/18 Unknown History [Waxlg-Helnljf-Dtwhozfw Tablet] Acetaminophen 650 mg NGTUBE Q6H PRN 07/30/18 10/03/18 Unknown History AtorvaSTATin [Lipitor] 40 mg NGTUBE QHS 07/30/18 10/03/18 Unknown History Dutasteride 0.5 mg NGTUBE QAM 07/30/18 10/03/18 Unknown History Ipratropium/Albuterol Sulfate 1 ampul IH BID 07/30/18 10/03/18 Unknown History [DUONEB *Not for PRN Use*] Lisinopril [Zestril TAB] 40 mg PO QDAY 07/30/18 10/03/18 Unknown History Tamsulosin [Flomax] 0.4 mg PO QDAY 07/30/18 10/03/18 Unknown History Vit C/Ascorbate Calcium,Sodium 500 mg NGTUBE BID 07/30/18 10/03/18 Unknown History [Vitamin C 500 mg/15 ml Liquid] Zinc Sulfate 220 mg NGTUBE QDAY 07/30/18 10/03/18 Unknown History levETIRAcetam [Keppra INJ] 500 mg PO Q12H 07/30/18 10/03/18 Unknown History Carvedilol [Coreg] 3.125 mg PO BID #60 tablet 08/23/18 10/03/18 Unknown Rx Furosemide [Lasix] 20 mg PO QDAY #30 tablet 08/23/18 10/03/18 Unknown Rx Oxycodone HCl/Acetaminophen 1 each PO Q8HR PRN #14 tablet 08/23/18 10/03/18 Unknown Rx [Percocet 7.5/325 mg] Phosphorus #1 [K-Phos Neutral] 250 mg PO QID #30 tablet 08/23/18 10/03/18 Unknown Rx hydroCHLOROthiazide [HCTZ] 12.5 mg PO QDAY #30 tablet 08/23/18 10/03/18 Unknown Rx Active Medications: Generic Name Dose Route Start Last Admin Trade Name Freq PRN Reason Stop Dose Admin Acetaminophen 650 mg 10/01/18 15:32 Tylenol FEEDTUBE Q6H PRN Pain, Moderate (4-6) Albuterol 2.5 mg 10/01/18 17:40 10/04/18 21:02 Proventil IH 2.5 mg Q3HRT PRN Administration Shortness Of Breath Lipase/Protease/Amylase 1 each 10/04/18 14:[address] 10,500 Unit FEEDTUBE PRN PRN For Clogged Feeding Tube Ascorbic Acid 500 mg 10/04/18 10:00 10/08/18 22:35 Vitamin C FEEDTUBE 500 mg BID NORA Administration Atorvastatin Calcium 40 mg 10/01/18 22:00 10/08/18 22:35 Lipitor FEEDTUBE 40 mg QHS NORA Administration Clonidine HCl 0.2 mg 10/08/18 10:00 10/08/18 09:52 Catapres-Tts Patch TD 0.2 mg Tu NORA Administration Famotidine 20 mg 10/03/18 12:00 10/08/18 09:52 Pepcid PO 20 mg DAILY NORA Administration Heparin Sodium (Porcine) 5,000 unit 10/01/18 22:00 10/08/18 22:35 Heparin SUB-Q 5,000 unit Q12HR NORA Administration Hydralazine HCl 10 mg 10/07/18 15:12 10/07/18 18:00 Apresoline IV 10 mg Q4HR PRN Administration Blood Pressure Vancomycin HCl 1 gm in 250 mls @ 167.007 mls/hr 10/08/18 10:00 10/08/18 10:00 Vancomycin/Ns 1 Gm/250 Ml IV 167.007 mls/hr Q48HR NORA Administration Levetiracetam 500 mg 10/01/18 22:00 10/08/18 22:35 Keppra PO 500 mg BID NORA Administration Multivitamins 1 each 10/02/18 10:00 10/08/18 09:52 Theragran Tab PO 1 each DAILY NORA Administration Oxycodone/Acetaminophen 1 tab 10/02/18 20:16 10/08/18 23:23 Percocet 5/325 PO 1 tab Q4H PRN Administration Pain, Moderate (4-6) Simple Syrup 15 ml 10/02/18 10:35 Simple Syrup FEEDTUBE PRN PRN Hypoglycemia Simple Syrup 30 ml 10/02/18 10:35 Simple Syrup FEEDTUBE PRN PRN Hypoglycemia Sodium Bicarbonate 325 mg 10/02/18 10:35 Sodium Bicarbonate FEEDTUBE PRN PRN For Clogged Feeding Tube Sodium Chloride 10 ml 10/01/18 22:00 10/08/18 22:35 Sodium Chloride Flush Syringe 10 Ml IV 10 ml BID NORA Administration Sodium Chloride 10 ml 10/01/18 17:40 10/05/18 21:30 Sodium Chloride Flush Syringe 10 Ml IV 10 ml PRN PRN Administration LINE FLUSH Zinc Sulfate 220 mg 10/02/18 10:00 10/08/18 10:00 Zinc Sulfate PO 220 mg QDAY NORA Administration
--- NOTE | 2018-10-09 10:11 | Progress Note ---
Assessment and Plan Cultures: Blood culture 10/01/2018 MRSA 2 of 4. Blood culture 10/03/2018 no growth Assessment: 67 y/o male with history of HTN, CVA, obstructive uropathy, contractures, multiple decubitus ulcers, TN, DM, OA, seizure Disorder, COPD, dementia, debility, BPH, well known to ID service due to multiple admissions from decubitus ulcers infections, resident of long term, admitted due to decreased responsiveness compared to baseline and hypotension. SBP in 60's: 1) Severe Sepsis with septic shock: improving, off pressors since 10/04. Etiology most likely Staph aureus bacteremia. Last fever 10/05/18. 2) Staph aureus (MRSA) bacteremia: source likely multiple decubitus or UTI. Blood culture 10/01/2018 S. aureus 2 of 4. Repeat blood cultures show no growth. TTE no valvular vegetation. 3) Recent septic shock due to polymicrobial bacteremia ESBL E coli, MDR Proteus, Strep and E faecalis on 07/29/2018 probably from multiple infected decubitus ulcers and less likely UTI. Repeat blood cultures 07/31/2018 showed same MDR E coli 1 of 4 bottles then 08/06/2018 blood cultures showed no growth. Patient did not respond to carbapenem and was placed on Vabomere for 14 days. 4) Multiple infected decubitus ulcers: currently active large left trochanteric with bone exposure and sacral with bone exposure. His prognosis has been poor and discussed previously with family hospice indication, but they declined. His wounds are not curable considering his contractures, bed bound status and poor nutritional status. There was also suspicion of septic arthritis of left hip from decubitus ulcer. 5) Recurrent CA-UTI. 6) Acute encephalopathy: resolved. 7) MÓNICA: resolved Recommendations: - Continue wound care. - Continue vancomycin D8 for MRSA bacteremia. - WBC tagged scan ordered - Unable to perform because of contractions -Anticipate discharge on Vancomycin 1 gm every 48 hours for total 6 weeks ending 11-12-18 -Order placed with case management -PICC line ordered Overall prognosis very poor. [facility] M: [phone] O:[phone] Subjective Date of service: 10/09/18 Principal diagnosis: Septic shock; Ac encephalopathy; Multiple decubitus ulcers; Ac renal failur Interval history: Patient seen examined. Acute distress observed. Generalized weakness. No fevers. Objective - Exam Narrative Exam: General appearance: Alert. Awake. Mild distress observed, moaning. Eyes: anicteric sclerae, moist conjunctivae; no lid-lag; PERRLA. HENT: Atraumatic; oropharynx limited. Neck: Trachea midline; supple, no thyromegaly or lymphadenopathy. Lungs: scattered rhonchi. CV: S1,S2. Abdomen: Soft, non-tender; PEG in place. : Condom catheter Extremities: Bilateral contracted legs, multiple wounds covered. Skin: multiple skin tears Psych: moans Neuro: alert Lines: right PICC - Constitutional Vitals: Vital Signs Temp Pulse Resp BP Pulse Ox 98.7 F 106 H 18 193/99 95 10/09/18 08:00 10/09/18 08:00 10/09/18 08:00 10/09/18 08:00 10/09/18 08:00 Temperature -Last 24 Hours Temperature 98.7 F Temperature 98.0 F Temperature 98.0 F Temperature 98.0 F Temperature 98.5 F - Labs CBC & Chem 7: 10/08/18 11:09 10/09/18 05:48 Labs: Abnormal lab results 10/08/18 10/08/18 10/09/18 Range/Units 05:07 11:09 05:48 RBC 2.86 L (3.65-5.03) M/mm3 Hgb 8.0 L (11.8-15.2) gm/dl Hct 24.5 L (35.5-45.6) % RDW 18.7 H (13.2-15.2) % Lymph % (Auto) 7.8 L (13.4-35.0) % [place] % (Auto) 8.2 H (0.0-7.3) % Eos % (Auto) 5.9 H (0.0-4.3) % Lymph # 0.8 L (1.2-5.4) K/mm3 [place] # 0.9 H (0.0-0.8) K/mm3 Eos # 0.6 H (0.0-0.4) K/mm3 Seg Neutrophils % 77.8 H (40.0-70.0) % Seg Neutrophils # 8.2 H (1.8-7.7) K/mm3 Potassium 5.2 H (3.6-5.0) mmol/L Chloride 112.9 H (98-107) mmol/L Carbon Dioxide 21 L (22-30) mmol/L BUN 34 H (9-20) mg/dL Creatinine 0.7 L (0.8-1.5) mg/dL C-Reactive Protein 11.40 H (0.00-1.30) mg/dL
[2018-10-09] MEDS: THERAGRAN Tab PO SCH (11:15)
[2018-10-09] MEDS: PEPCID PO SCH (11:15)
[2018-10-09] MEDS: HEPARIN SUB-Q SCH ×2 (11:15→22:25)
[2018-10-09] MEDS: VITAMIN C FEEDTUBE SCH ×2 (11:15→22:25)
[2018-10-09] MEDS: ZINC SULFATE PO SCH (11:16)
[2018-10-09] MEDS: KEPPRA PO SCH ×2 (11:16→22:25)
[2018-10-09] MEDS: SODIUM CHLORIDE FLUSH SYRINGE 10 ML IV SCH ×2 (11:16→22:25)
--- NOTE | 2018-10-09 14:56 | Progress Note ---
Assessment and Plan / Severe sepsis with shock, POA due to bacteremia, UTI and RUL PNA continue Sepsis Protocol: IV antibiotic therapy, IVF resuscitation therapy, MRSA on Blood cultures, s/p IV pressors , ID consulted Per ID: - Continue vancomycin now for MRSA bacteremia. So far no clear source for MRSA bacteremia but suspected possible infected decubitus ulcer - treated with meropenem for 5 days to cover UTI as urine culture was not sent and he has h/o MDR GNRs /MRSA bacteremia - possible source infected decubitus ulcer - cont vanc, ID following, 2d echo showed no vegetation /Decubitus ulcer, multiple with different stages - cont wound care, abx per ID - Could be the source for bacteremia, ID ordered for WBC scan but could not be done because of his chronic contracture/anatomical position /Anemia, s/p 2 units blood transfusion, likely AOCD and severe sepsis - stool for occult blood negative, cont to monitor / MÓNICA with vasomotor nephropathy renal function stable with IVF resuscitation therapy, monitor uop q shift, nephrology consulted in ED. /Right upper lobe Pneumonia, suspect aspiration Treated with IV antibiotic therapy, supplemental oxygen, pulse oximetry, / Elevated troponin Likely due to sepsis with low blood pressure and renal failure Monitor with Serial cardiac enzymes, Cardiology consulted in ED, No EKG changes, supportive care, / UTI (lower urinary tract infection) Treated with IV antibiotic therapy, IV fluids /Acute hypoxic Respiratory failure Likely due to underlying pneumonia Continue to provide Supplemental oxygen, nebulizer therapy, NIPPV as clinically indicated, pulse oximetry, /Moderate to severe protein calorie malnutrition - BMI 17.8, albumin 1.7 - consulted dietary, continue tube feeding for now hypernatremia, on hypotonic saline Hypokalemia/hyperkalemia, - repleted for hypokalemia now potassium level 5.2 - Given 1 dose of Kayexalate will follow response /Hypertension, placed on clonidine patch / DVT prophylaxis SCD to BLE while in bed, prophylactic heparin Disposition: wait for final ID recommendation for d/c abx coverage Brief History: 67 YO Male [facility] Facility Resident as [facility] with HTN, CVA, Obstructive Uropathy, Contracture, Decubitus Ulcers, VA, DM, OA, Seizure D isorder, COPD, Dementia, Debility, BPH presented to ED for evaluation, As per staff, the patient was found to have decreased responsiveness compared to baseline. Pt seen and evaluated in ED and found to have Sepsis secondary to UTI with concomitant RUL Pneumonia with a QSofa score of 8( GCS:3, MAP less than 70, Creatnine:2.1), Encephalopathy, and symptomatic anemia. Pt admitted to ICU and initiated on Sepsis protocol. Radiological data: Chest x-ray: Limited exam. Mild cardiomegaly. The lungs are grossly clear although there is poor visualization of the right upper lobe. 2-D echo: Preserved EF with abnormal left ventricular diastolic filling pressure Hospitalist Physical exam: GENERAL: Elderly male lying on bed appeared to be in no discomfort. It appears to be very lethargic and aphasic HEENT: Normocephalic. Atraumatic. No conjunctival congestion or icterus. Patient has moist mucous membranes. NECK: Supple. Trachea midline. CHEST/LUNGS: Clear to auscultated bilaterally, breathing nonlabored. No wheezes crackles or rhonchi. HEART/CARDIOVASCULAR: Regular in rate and rhythm. S1 and S2 positive. ABDOMEN: Abdomen is soft, nontender. Patient has normal bowel sounds. SKIN: There is no rash. Warm and dry. NEURO: Does not Follow command. MUSCULOSKELETAL: No joint effusion, generalized weakness unable to move extremities EXTRIMITY: No edema, no cyanosis or clubbing. PSYCH: Unable to assess. Subjective Date of service: 10/09/18 Principal diagnosis: Septic shock; Ac encephalopathy; Multiple decubitus ulcers; Ac renal failur Interval history: Patient seen and examined. Medical records and medication list reviewed. No acute event overnight noted by the RN. Patient unable to provide any history with severe dementia Patient on nasal cannula , on tube feeding, no sign of active bleeding Discussed plan of care at bedside with RN. Objective - Constitutional Vitals: Vital Signs - 12hr 10/09/18 10/09/18 10/09/18 04:00 04:52 08:00 Temperature 98.0 F 98.7 F Pulse Rate 89 108 H 106 H Respiratory 18 18 Rate Blood Pressure 157/91 193/99 O2 Sat by Pulse 96 95 Oximetry - Labs CBC & Chem 7: 10/08/18 11:09 10/09/18 05:48 Labs: Abnormal lab results 10/09/18 Range/Units 05:48 Potassium 5.2 H (3.6-5.0) mmol/L Chloride 112.9 H (98-107) mmol/L Carbon Dioxide 21 L (22-30) mmol/L BUN 34 H (9-20) mg/dL Creatinine 0.7 L (0.8-1.5) mg/dL
--- NOTE | 2018-10-09 20:10 | Progress Note ---
Assessment and Plan atient having clean up. Not responding to verbal stimuli. Patient contracted. Patient is on 3 litres O2.O2 saturation 95%. - Patient Problems (1) Acute respiratory failure with hypoxia Current Visit: Yes Status: Acute Plan to address problem: O2 3 litres via nasal canula. Albuterol aerosol treatments q 6 hours. Continue S/C Heparin Continue famotidine. (2) Sepsis Current Visit: Yes Status: Acute Qualifiers: Sepsis type: sepsis due to unspecified organism Qualified Code(s): A41.9 - Sepsis, unspecified organism Plan to address problem: Patient is on vancomycin. (3) Decubitus ulcer Current Visit: No Status: Acute Plan to address problem: Wound care consultation. Patient is on vancomycin. (4) Diabetes Current Visit: No Status: Acute Plan to address problem: Management as per primary care. (5) HTN (hypertension) Current Visit: No Status: Acute Qualifiers: Hypertension type: essential hypertension Qualified Code(s): I10 - Essential (primary) hypertension Plan to address problem: Management as per primary care. Subjective Date of service: 10/09/18 Principal diagnosis: Septic shock; Ac encephalopathy; Multiple decubitus ulcers; Ac renal failur Interval history: Patient having clean up. Not responding to verbal stimuli. Patient contracted. Patient is on 3 litres O2.O2 saturation 95%. Objective Constitutional: no acute distress, other (elderly looking AAM, normocephalic but contrated and with mildly increased work of breathing at rest) Eyes: non-icteric ENT: oropharynx moist Neck: no lymphadenopathy, no JVD, other (neck stiff and deviated to the right side) Effort: mildly labored Ascultation: Bilateral: diminished breath sounds, rhonchi (scant) Percussion: Bilateral: not dull Cardiovascular: regular rate and rhythm Gastrointestinal: normoactive bowel sounds, soft, non-tender, non-distended, other (PEG tube) Integumentary: rash Extremities: no cyanosis, pulses normal, no ischemia or petechiae Neurologic: pupils equal and round, other (tardive dyskinetic movts) Psychiatric: other (unable to assess) CBC and BMP: 10/08/18 11:09 10/09/18 05:48 ABG, PT/INR, D-dimer: ABG POC ABG pH 7.480 (7.35-7.45) H 05/14/19 18:12 POC ABG pO2 64 (80-105) L 10/01/18 18:12 POC ABG HCO3 21.0 (22-26 mml/L) 10/01/18 18:12 POC ABG Total CO2 22 (23-27mmol/L) 10/01/18 18:12 POC ABG O2 Sat 94 10/01/18 18:12 Abnormal lab findings: Abnormal Labs 10/01/18 10/01/18 10/01/18 14:29 14:29 15:13 WBC 18.5 H RBC 2.68 L Hgb 7.3 L Hct 23.1 L MCH 27 L MCHC 31 L RDW 19.3 H Plt Count 522 H Lymph % (Auto) 6.7 L [place] % (Auto) Eos % (Auto) Lymph # [place] # 1.2 H Eos # Seg Neutrophils % 85.0 H Seg Neuts % (Manual) Lymphocytes % (Manual) Seg Neutrophils # 15.7 H Seg Neutrophils # Man Lymphocytes # (Manual) POC ABG pH POC ABG pO2 Sodium 148 H Potassium 3.3 L Chloride Carbon Dioxide BUN 98 H Creatinine 2.0 H Glucose 142 H POC Glucose Lactic Acid Calcium Phosphorus Magnesium AST Alkaline Phosphatase Troponin T 0.361 H* C-Reactive Protein Albumin Cholesterol 36 L LDL Cholesterol Direct 6 L HDL Cholesterol 21 L Urine WBC (Auto) > 182.0 H Urine Creatinine Vancomycin Trough Crossmatch 10/01/18 10/01/18 10/01/18 15:15 15:15 17:03 WBC RBC Hgb Hct MCH MCHC RDW Plt Count Lymph % (Auto) [place] % (Auto) Eos % (Auto) Lymph # [place] # Eos # Seg Neutrophils % Seg Neuts % (Manual) Lymphocytes % (Manual) Seg Neutrophils # Seg Neutrophils # Man Lymphocytes # (Manual) POC ABG pH POC ABG pO2 Sodium 150 H Potassium Chloride Carbon Dioxide BUN 94 H Creatinine 2.1 H Glucose 132 H POC Glucose Lactic Acid 2.60 H* 2.20 H* Calcium 7.8 L Phosphorus Magnesium AST 47 H Alkaline Phosphatase 179 H Troponin T C-Reactive Protein Albumin 2.1 L Cholesterol LDL Cholesterol Direct HDL Cholesterol Urine WBC (Auto) Urine Creatinine Vancomycin Trough Crossmatch 10/01/18 10/01/18 10/01/18 18:12 18:23 18:23 WBC RBC Hgb Hct MCH MCHC RDW Plt Count Lymph % (Auto) [place] % (Auto) Eos % (Auto) Lymph # [place] # Eos # Seg Neutrophils % Seg Neuts % (Manual) Lymphocytes % (Manual) Seg Neutrophils # Seg Neutrophils # Man Lymphocytes # (Manual) POC ABG pH 7.480 H POC ABG pO2 64 L Sodium Potassium Chloride Carbon Dioxide BUN Creatinine Glucose POC Glucose Lactic Acid Calcium Phosphorus Magnesium 3.30 H AST Alkaline Phosphatase Troponin T 0.378 H* C-Reactive Protein Albumin Cholesterol LDL Cholesterol Direct HDL Cholesterol Urine WBC (Auto) Urine Creatinine Vancomycin Trough Crossmatch 10/01/18 10/01/18 10/01/18 18:48 21:20 23:48 WBC RBC Hgb Hct MCH MCHC RDW Plt Count Lymph % (Auto) [place] % (Auto) Eos % (Auto) Lymph # [place] # Eos # Seg Neutrophils % Seg Neuts % (Manual) Lymphocytes % (Manual) Seg Neutrophils # Seg Neutrophils # Man Lymphocytes # (Manual) POC ABG pH POC ABG pO2 Sodium Potassium Chloride Carbon Dioxide BUN Creatinine Glucose POC Glucose Lactic Acid 2.30 H* 2.70 H* Calcium Phosphorus Magnesium AST Alkaline Phosphatase Troponin T 0.336 H* C-Reactive Protein Albumin Cholesterol LDL Cholesterol Direct HDL Cholesterol Urine WBC (Auto) Urine Creatinine Vancomycin Trough Crossmatch 10/01/18 10/02/18 10/02/18 23:48 04:45 04:45 WBC 18.3 H RBC 2.40 L Hgb 6.4 L Hct 20.4 L MCH 27 L MCHC 31 L RDW 19.1 H Plt Count 462 H Lymph % (Auto) [place] % (Auto) Eos % (Auto) Lymph # [place] # Eos # Seg Neutrophils % Seg Neuts % (Manual) 78.0 H Lymphocytes % (Manual) 5.0 L Seg Neutrophils # Seg Neutrophils # Man 14.3 H Lymphocytes # (Manual) 0.9 L POC ABG pH POC ABG pO2 Sodium Potassium Chloride Carbon Dioxide BUN Creatinine Glucose POC Glucose Lactic Acid 2.50 H* Calcium Phosphorus Magnesium AST Alkaline Phosphatase Troponin T C-Reactive Protein Albumin Cholesterol LDL Cholesterol Direct HDL Cholesterol Urine WBC (Auto) Urine Creatinine 74.7 H Vancomycin Trough Crossmatch 10/02/18 10/02/18 10/02/18 04:45 04:45 04:45 WBC RBC Hgb Hct MCH MCHC RDW Plt Count Lymph % (Auto) [place] % (Auto) Eos % (Auto) Lymph # [place] # Eos # Seg Neutrophils % Seg Neuts % (Manual) Lymphocytes % (Manual) Seg Neutrophils # Seg Neutrophils # Man Lymphocytes # (Manual) POC ABG pH POC ABG pO2 Sodium 148 H Potassium 3.1 L Chloride 108.6 H Carbon Dioxide 21 L BUN 89 H Creatinine 1.8 H Glucose POC Glucose Lactic Acid 2.10 H* Calcium 8.3 L Phosphorus 5.00 H Magnesium AST Alkaline Phosphatase 161 H Troponin T C-Reactive Protein Albumin 1.7 L Cholesterol LDL Cholesterol Direct HDL Cholesterol Urine WBC (Auto) Urine Creatinine Vancomycin Trough Crossmatch 10/02/18 10/02/18 10/03/18 09:46 11:47 00:03 WBC RBC Hgb Hct MCH MCHC RDW Plt Count Lymph % (Auto) [place] % (Auto) Eos % (Auto) Lymph # [place] # Eos # Seg Neutrophils % Seg Neuts % (Manual) Lymphocytes % (Manual) Seg Neutrophils # Seg Neutrophils # Man Lymphocytes # (Manual) POC ABG pH POC ABG pO2 Sodium Potassium Chloride Carbon Dioxide BUN Creatinine Glucose POC Glucose 112 H 106 H Lactic Acid Calcium Phosphorus Magnesium AST Alkaline Phosphatase Troponin T C-Reactive Protein Albumin Cholesterol LDL Cholesterol Direct HDL Cholesterol Urine WBC (Auto) Urine Creatinine Vancomycin Trough Crossmatch See Detail 10/03/18 10/03/18 10/03/18 06:06 06:45 06:45 WBC 17.3 H RBC 2.81 L Hgb 7.6 L Hct 24.1 L MCH 27 L MCHC 31 L RDW 18.4 H Plt Count 473 H Lymph % (Auto) 5.2 L [place] % (Auto) Eos % (Auto) 4.6 H Lymph # 0.9 L [place] # Eos # 0.8 H Seg Neutrophils % 85.7 H Seg Neuts % (Manual) Lymphocytes % (Manual) Seg Neutrophils # 14.8 H Seg Neutrophils # Man Lymphocytes # (Manual) POC ABG pH POC ABG pO2 Sodium 148 H Potassium Chloride 112.1 H Carbon Dioxide 21 L BUN 79 H Creatinine 1.7 H Glucose 116 H POC Glucose 130 H Lactic Acid Calcium 7.9 L Phosphorus Magnesium AST Alkaline Phosphatase Troponin T C-Reactive Protein Albumin Cholesterol LDL Cholesterol Direct HDL Cholesterol Urine WBC (Auto) Urine Creatinine Vancomycin Trough Crossmatch 10/03/18 10/03/18 10/03/18 11:50 17:42 23:20 WBC RBC Hgb Hct MCH MCHC RDW Plt Count Lymph % (Auto) [place] % (Auto) Eos % (Auto) Lymph # [place] # Eos # Seg Neutrophils % Seg Neuts % (Manual) Lymphocytes % (Manual) Seg Neutrophils # Seg Neutrophils # Man Lymphocytes # (Manual) POC ABG pH POC ABG pO2 Sodium Potassium Chloride Carbon Dioxide BUN Creatinine Glucose POC Glucose 126 H 118 H 106 H Lactic Acid Calcium Phosphorus Magnesium AST Alkaline Phosphatase Troponin T C-Reactive Protein Albumin Cholesterol LDL Cholesterol Direct HDL Cholesterol Urine WBC (Auto) Urine Creatinine Vancomycin Trough Crossmatch 10/04/18 10/04/18 10/04/18 05:22 07:00 07:00 WBC 14.8 H RBC 2.38 L Hgb 6.4 L Hct 20.5 L MCH 27 L MCHC 31 L RDW 18.2 H Plt Count Lymph % (Auto) 5.3 L [place] % (Auto) Eos % (Auto) 9.5 H Lymph # 0.8 L [place] # Eos # 1.4 H Seg Neutrophils % 81.2 H Seg Neuts % (Manual) Lymphocytes % (Manual) Seg Neutrophils # 12.0 H Seg Neutrophils # Man Lymphocytes # (Manual) POC ABG pH POC ABG pO2 Sodium 148 H Potassium Chloride 112.0 H Carbon Dioxide BUN 73 H Creatinine Glucose 105 H POC Glucose 115 H Lactic Acid Calcium 8.1 L Phosphorus Magnesium AST Alkaline Phosphatase Troponin T C-Reactive Protein Albumin 1.5 L Cholesterol LDL Cholesterol Direct HDL Cholesterol Urine WBC (Auto) Urine Creatinine Vancomycin Trough Crossmatch 10/04/18 10/04/18 10/05/18 12:35 18:28 04:20 WBC 14.1 H RBC 2.94 L Hgb 8.2 L Hct 25.2 L MCH MCHC RDW 17.9 H Plt Count Lymph % (Auto) 6.6 L [place] % (Auto) Eos % (Auto) 6.4 H Lymph # 0.9 L [place] # Eos # 0.9 H Seg Neutrophils % 82.7 H Seg Neuts % (Manual) Lymphocytes % (Manual) Seg Neutrophils # 11.6 H Seg Neutrophils # Man Lymphocytes # (Manual) POC ABG pH POC ABG pO2 Sodium Potassium Chloride Carbon Dioxide BUN Creatinine Glucose POC Glucose 109 H 109 H Lactic Acid Calcium Phosphorus Magnesium AST Alkaline Phosphatase Troponin T C-Reactive Protein Albumin Cholesterol LDL Cholesterol Direct HDL Cholesterol Urine WBC (Auto) Urine Creatinine Vancomycin Trough Crossmatch 10/05/18 10/05/18 10/05/18 04:20 11:45 17:32 WBC RBC Hgb Hct MCH MCHC RDW Plt Count Lymph % (Auto) [place] % (Auto) Eos % (Auto) Lymph # [place] # Eos # Seg Neutrophils % Seg Neuts % (Manual) Lymphocytes % (Manual) Seg Neutrophils # Seg Neutrophils # Man Lymphocytes # (Manual) POC ABG pH POC ABG pO2 Sodium Potassium Chloride 110.0 H Carbon Dioxide 21 L BUN 64 H Creatinine Glucose POC Glucose 118 H 113 H Lactic Acid Calcium 8.3 L Phosphorus Magnesium AST Alkaline Phosphatase Troponin T C-Reactive Protein Albumin Cholesterol LDL Cholesterol Direct HDL Cholesterol Urine WBC (Auto) Urine Creatinine Vancomycin Trough Crossmatch 10/06/18 10/06/18 10/06/18 05:15 05:15 05:35 WBC 12.3 H RBC 2.77 L Hgb 7.6 L Hct 24.1 L MCH MCHC RDW 18.1 H Plt Count Lymph % (Auto) 4.9 L [place] % (Auto) Eos % (Auto) 7.3 H Lymph # 0.6 L [place] # Eos # 0.9 H Seg Neutrophils % 81.1 H Seg Neuts % (Manual) Lymphocytes % (Manual) Seg Neutrophils # 10.0 H Seg Neutrophils # Man Lymphocytes # (Manual) POC ABG pH POC ABG pO2 Sodium 146 H Potassium Chloride 112.1 H Carbon Dioxide BUN 57 H Creatinine Glucose 120 H POC Glucose 115 H Lactic Acid Calcium Phosphorus Magnesium AST Alkaline Phosphatase Troponin T C-Reactive Protein Albumin Cholesterol LDL Cholesterol Direct HDL Cholesterol Urine WBC (Auto) Urine Creatinine Vancomycin Trough Crossmatch 10/06/18 10/06/18 10/06/18 12:31 18:44 Unknown WBC RBC Hgb Hct MCH MCHC RDW Plt Count Lymph % (Auto) [place] % (Auto) Eos % (Auto) Lymph # [place] # Eos # Seg Neutrophils % Seg Neuts % (Manual) Lymphocytes % (Manual) Seg Neutrophils # Seg Neutrophils # Man Lymphocytes # (Manual) POC ABG pH POC ABG pO2 Sodium Potassium Chloride Carbon Dioxide BUN Creatinine Glucose POC Glucose 150 H 125 H Lactic Acid Calcium Phosphorus Magnesium AST Alkaline Phosphatase Troponin T C-Reactive Protein Albumin Cholesterol LDL Cholesterol Direct HDL Cholesterol Urine WBC (Auto) Urine Creatinine Vancomycin Trough 23.5 H Crossmatch 10/07/18 10/07/18 10/07/18 05:06 05:06 08:34 WBC RBC Hgb 8.2 L Hct 25.8 L MCH MCHC RDW Plt Count Lymph % (Auto) [place] % (Auto) Eos % (Auto) Lymph # [place] # Eos # Seg Neutrophils % Seg Neuts % (Manual) Lymphocytes % (Manual) Seg Neutrophils # Seg Neutrophils # Man Lymphocytes # (Manual) POC ABG pH POC ABG pO2 Sodium Potassium Chloride 112.2 H Carbon Dioxide 21 L BUN 43 H Creatinine Glucose POC Glucose Lactic Acid Calcium 8.3 L Phosphorus Magnesium AST Alkaline Phosphatase Troponin T C-Reactive Protein Albumin Cholesterol LDL Cholesterol Direct HDL Cholesterol Urine WBC (Auto) Urine Creatinine Vancomycin Trough 23.0 H Crossmatch 10/08/18 10/08/18 10/08/18 05:07 05:07 11:09 WBC RBC 2.86 L Hgb 8.0 L Hct 24.5 L MCH MCHC RDW 18.7 H Plt Count Lymph % (Auto) 7.8 L [place] % (Auto) 8.2 H Eos % (Auto) 5.9 H Lymph # 0.8 L [place] # 0.9 H Eos # 0.6 H Seg Neutrophils % 77.8 H Seg Neuts % (Manual) Lymphocytes % (Manual) Seg Neutrophils # 8.2 H Seg Neutrophils # Man Lymphocytes # (Manual) POC ABG pH POC ABG pO2 Sodium Potassium 5.1 H Chloride 111.8 H Carbon Dioxide BUN 37 H Creatinine Glucose 101 H POC Glucose Lactic Acid Calcium 8.3 L Phosphorus Magnesium 2.50 H AST Alkaline Phosphatase Troponin T C-Reactive Protein 11.40 H Albumin Cholesterol LDL Cholesterol Direct HDL Cholesterol Urine WBC (Auto) Urine Creatinine Vancomycin Trough Crossmatch 10/09/18 05:48 WBC RBC Hgb Hct MCH MCHC RDW Plt Count Lymph % (Auto) [place] % (Auto) Eos % (Auto) Lymph # [place] # Eos # Seg Neutrophils % Seg Neuts % (Manual) Lymphocytes % (Manual) Seg Neutrophils # Seg Neutrophils # Man Lymphocytes # (Manual) POC ABG pH POC ABG pO2 Sodium Potassium 5.2 H Chloride 112.9 H Carbon Dioxide 21 L BUN 34 H Creatinine 0.7 L Glucose POC Glucose Lactic Acid Calcium Phosphorus Magnesium AST Alkaline Phosphatase Troponin T C-Reactive Protein Albumin Cholesterol LDL Cholesterol Direct HDL Cholesterol Urine WBC (Auto) Urine Creatinine Vancomycin Trough Crossmatch Allied health notes reviewed: nursing
[2018-10-09] MEDS: COREG PO SCH (22:25)
[2018-10-10] MEDS: TYLENOL FEEDTUBE PRN (03:31)
--- NOTE | 2018-10-10 08:57 | Progress Note ---
Assessment and Plan - Severe Sepsis with septic shock, off vasopressor support -GPC bacteremia -Acute encephalopathy -Multiple decubitus ulcers -Acute metabolic encephaloapthy -Hypernatremia -Recurrent CAUTI -Lactic acidosis -Acute renal failure- prerenal/vasomotor nephropathy -Monitor renal indices closely -Avoid nephrotoxic agents, adjust all medications for CrCL -Strict intake and output monitoring -Wean supplemental oxygen for O2 sats>90% -VTE prophylaxis -Antibiotics per ID, 6 weeks of therapy for osteomyelitis -Continue tube feedings with aspiration precautions - Continue free water flushes to treat hypernatremia. -Accuchecks with glycemic control. Target glucose of 140-180 mg/dL -Bronchodilators with pulmonary hygiene per RT -Wound care per WOCN -Influenza and pneumonia vaccination per protocol -Discharge planning Subjective Date of service: 10/10/18 Principal diagnosis: Septic shock; Ac encephalopathy; Multiple decubitus ulcers; Ac renal failur Interval history: Patient is seen today for: Severe Sepsis with septic shock; GPC bacteremia; Acute encephalopathy; Multiple decubitus ulcers; Acute metabolic encephaloapthy; Hypernatremia; Recurrent CAUTI; Lactic acidosis; Acute renal failure- prerenal/vasomotor nephropathy Seen and examined at bedside; 24hour events reviewed; nursing and respiratory care staff consulted; no adverse overnight events reported to me; resting peacefully in bed; no N/V/F/C; no gross bleeding, more awake and alert Objective Vital Signs - 12hr 10/09/18 10/09/18 10/09/18 21:56 23:36 23:37 Temperature 100.2 F H Pulse Rate 114 H Respiratory 20 Rate Blood Pressure 154/92 O2 Sat by Pulse 96 98 Oximetry 10/10/18 10/10/18 04:32 04:33 Temperature 98.8 F Pulse Rate 93 H Respiratory 20 Rate Blood Pressure 142/74 O2 Sat by Pulse 98 Oximetry Constitutional: no acute distress, other (elderly looking AAM, normocephalic, atraumatic, contracted) Eyes: non-icteric ENT: oropharynx moist Neck: no lymphadenopathy, no JVD, other (neck stiff and deviated to the right side) Effort: mildly labored Ascultation: Bilateral: diminished breath sounds, rhonchi (scant) Percussion: Bilateral: not dull Cardiovascular: regular rate and rhythm Gastrointestinal: normoactive bowel sounds, soft, non-tender, non-distended, other (PEG tube) Integumentary: rash Extremities: no cyanosis, pulses normal, no ischemia or petechiae Neurologic: pupils equal and round, other (tardive dyskinetic movts) Psychiatric: other (unable to assess) CBC and BMP: 10/11/18 04:41 10/11/18 04:41 ABG, PT/INR, D-dimer: ABG POC ABG pH 7.480 (7.35-7.45) H 10/01/18 18:12 POC ABG pO2 64 (80-105) L 10/01/18 18:12 POC ABG HCO3 21.0 (22-26 mml/L) 10/01/18 18:12 POC ABG Total CO2 22 (23-27mmol/L) 10/01/18 18:12 POC ABG O2 Sat 94 10/01/18 18:12 Abnormal lab findings: Abnormal Labs 10/01/18 10/01/18 10/01/18 14:29 14:29 15:13 WBC 18.5 H RBC 2.68 L Hgb 7.3 L Hct 23.1 L MCH 27 L MCHC 31 L RDW 19.3 H Plt Count 522 H Lymph % (Auto) 6.7 L [place] % (Auto) Eos % (Auto) Lymph # [place] # 1.2 H Eos # Seg Neutrophils % 85.0 H Seg Neuts % (Manual) Lymphocytes % (Manual) Seg Neutrophils # 15.7 H Seg Neutrophils # Man Lymphocytes # (Manual) POC ABG pH POC ABG pO2 Sodium 148 H Potassium 3.3 L Chloride Carbon Dioxide BUN 98 H Creatinine 2.0 H Glucose 142 H POC Glucose Lactic Acid Calcium Phosphorus Magnesium AST Alkaline Phosphatase Troponin T 0.361 H* C-Reactive Protein Albumin Cholesterol 36 L LDL Cholesterol Direct 6 L HDL Cholesterol 21 L Urine WBC (Auto) > 182.0 H Urine Creatinine Vancomycin Trough Crossmatch 10/01/18 10/01/18 10/01/18 15:15 15:15 17:03 WBC RBC Hgb Hct MCH MCHC RDW Plt Count Lymph % (Auto) [place] % (Auto) Eos % (Auto) Lymph # [place] # Eos # Seg Neutrophils % Seg Neuts % (Manual) Lymphocytes % (Manual) Seg Neutrophils # Seg Neutrophils # Man Lymphocytes # (Manual) POC ABG pH POC ABG pO2 Sodium 150 H Potassium Chloride Carbon Dioxide BUN 94 H Creatinine 2.1 H Glucose 132 H POC Glucose Lactic Acid 2.60 H* 2.20 H* Calcium 7.8 L Phosphorus Magnesium AST 47 H Alkaline Phosphatase 179 H Troponin T C-Reactive Protein Albumin 2.1 L Cholesterol LDL Cholesterol Direct HDL Cholesterol Urine WBC (Auto) Urine Creatinine Vancomycin Trough Crossmatch 10/01/18 10/01/18 10/01/18 18:12 18:23 18:23 WBC RBC Hgb Hct MCH MCHC RDW Plt Count Lymph % (Auto) [place] % (Auto) Eos % (Auto) Lymph # [place] # Eos # Seg Neutrophils % Seg Neuts % (Manual) Lymphocytes % (Manual) Seg Neutrophils # Seg Neutrophils # Man Lymphocytes # (Manual) POC ABG pH 7.480 H POC ABG pO2 64 L Sodium Potassium Chloride Carbon Dioxide BUN Creatinine Glucose POC Glucose Lactic Acid Calcium Phosphorus Magnesium 3.30 H AST Alkaline Phosphatase Troponin T 0.378 H* C-Reactive Protein Albumin Cholesterol LDL Cholesterol Direct HDL Cholesterol Urine WBC (Auto) Urine Creatinine Vancomycin Trough Crossmatch 10/01/18 10/01/18 10/01/18 18:48 21:20 23:48 WBC RBC Hgb Hct MCH MCHC RDW Plt Count Lymph % (Auto) [place] % (Auto) Eos % (Auto) Lymph # [place] # Eos # Seg Neutrophils % Seg Neuts % (Manual) Lymphocytes % (Manual) Seg Neutrophils # Seg Neutrophils # Man Lymphocytes # (Manual) POC ABG pH POC ABG pO2 Sodium Potassium Chloride Carbon Dioxide BUN Creatinine Glucose POC Glucose Lactic Acid 2.30 H* 2.70 H* Calcium Phosphorus Magnesium AST Alkaline Phosphatase Troponin T 0.336 H* C-Reactive Protein Albumin Cholesterol LDL Cholesterol Direct HDL Cholesterol Urine WBC (Auto) Urine Creatinine Vancomycin Trough Crossmatch 10/01/18 10/02/18 10/02/18 23:48 04:45 04:45 WBC 18.3 H RBC 2.40 L Hgb 6.4 L Hct 20.4 L MCH 27 L MCHC 31 L RDW 19.1 H Plt Count 462 H Lymph % (Auto) [place] % (Auto) Eos % (Auto) Lymph # [place] # Eos # Seg Neutrophils % Seg Neuts % (Manual) 78.0 H Lymphocytes % (Manual) 5.0 L Seg Neutrophils # Seg Neutrophils # Man 14.3 H Lymphocytes # (Manual) 0.9 L POC ABG pH POC ABG pO2 Sodium Potassium Chloride Carbon Dioxide BUN Creatinine Glucose POC Glucose Lactic Acid 2.50 H* Calcium Phosphorus Magnesium AST Alkaline Phosphatase Troponin T C-Reactive Protein Albumin Cholesterol LDL Cholesterol Direct HDL Cholesterol Urine WBC (Auto) Urine Creatinine 74.7 H Vancomycin Trough Crossmatch 10/02/18 10/02/18 10/02/18 04:45 04:45 04:45 WBC RBC Hgb Hct MCH MCHC RDW Plt Count Lymph % (Auto) [place] % (Auto) Eos % (Auto) Lymph # [place] # Eos # Seg Neutrophils % Seg Neuts % (Manual) Lymphocytes % (Manual) Seg Neutrophils # Seg Neutrophils # Man Lymphocytes # (Manual) POC ABG pH POC ABG pO2 Sodium 148 H Potassium 3.1 L Chloride 108.6 H Carbon Dioxide 21 L BUN 89 H Creatinine 1.8 H Glucose POC Glucose Lactic Acid 2.10 H* Calcium 8.3 L Phosphorus 5.00 H Magnesium AST Alkaline Phosphatase 161 H Troponin T C-Reactive Protein Albumin 1.7 L Cholesterol LDL Cholesterol Direct HDL Cholesterol Urine WBC (Auto) Urine Creatinine Vancomycin Trough Crossmatch 10/02/18 10/02/18 10/03/18 09:46 11:47 00:03 WBC RBC Hgb Hct MCH MCHC RDW Plt Count Lymph % (Auto) [place] % (Auto) Eos % (Auto) Lymph # [place] # Eos # Seg Neutrophils % Seg Neuts % (Manual) Lymphocytes % (Manual) Seg Neutrophils # Seg Neutrophils # Man Lymphocytes # (Manual) POC ABG pH POC ABG pO2 Sodium Potassium Chloride Carbon Dioxide BUN Creatinine Glucose POC Glucose 112 H 106 H Lactic Acid Calcium Phosphorus Magnesium AST Alkaline Phosphatase Troponin T C-Reactive Protein Albumin Cholesterol LDL Cholesterol Direct HDL Cholesterol Urine WBC (Auto) Urine Creatinine Vancomycin Trough Crossmatch See Detail 10/03/18 10/03/18 10/03/18 06:06 06:45 06:45 WBC 17.3 H RBC 2.81 L Hgb 7.6 L Hct 24.1 L MCH 27 L MCHC 31 L RDW 18.4 H Plt Count 473 H Lymph % (Auto) 5.2 L [place] % (Auto) Eos % (Auto) 4.6 H Lymph # 0.9 L [place] # Eos # 0.8 H Seg Neutrophils % 85.7 H Seg Neuts % (Manual) Lymphocytes % (Manual) Seg Neutrophils # 14.8 H Seg Neutrophils # Man Lymphocytes # (Manual) POC ABG pH POC ABG pO2 Sodium 148 H Potassium Chloride 112.1 H Carbon Dioxide 21 L BUN 79 H Creatinine 1.7 H Glucose 116 H POC Glucose 130 H Lactic Acid Calcium 7.9 L Phosphorus Magnesium AST Alkaline Phosphatase Troponin T C-Reactive Protein Albumin Cholesterol LDL Cholesterol Direct HDL Cholesterol Urine WBC (Auto) Urine Creatinine Vancomycin Trough Crossmatch 10/03/18 10/03/18 10/03/18 11:50 17:42 23:20 WBC RBC Hgb Hct MCH MCHC RDW Plt Count Lymph % (Auto) [place] % (Auto) Eos % (Auto) Lymph # [place] # Eos # Seg Neutrophils % Seg Neuts % (Manual) Lymphocytes % (Manual) Seg Neutrophils # Seg Neutrophils # Man Lymphocytes # (Manual) POC ABG pH POC ABG pO2 Sodium Potassium Chloride Carbon Dioxide BUN Creatinine Glucose POC Glucose 126 H 118 H 106 H Lactic Acid Calcium Phosphorus Magnesium AST Alkaline Phosphatase Troponin T C-Reactive Protein Albumin Cholesterol LDL Cholesterol Direct HDL Cholesterol Urine WBC (Auto) Urine Creatinine Vancomycin Trough Crossmatch 10/04/18 10/04/18 10/04/18 05:22 07:00 07:00 WBC 14.8 H RBC 2.38 L Hgb 6.4 L Hct 20.5 L MCH 27 L MCHC 31 L RDW 18.2 H Plt Count Lymph % (Auto) 5.3 L [place] % (Auto) Eos % (Auto) 9.5 H Lymph # 0.8 L [place] # Eos # 1.4 H Seg Neutrophils % 81.2 H Seg Neuts % (Manual) Lymphocytes % (Manual) Seg Neutrophils # 12.0 H Seg Neutrophils # Man Lymphocytes # (Manual) POC ABG pH POC ABG pO2 Sodium 148 H Potassium Chloride 112.0 H Carbon Dioxide BUN 73 H Creatinine Glucose 105 H POC Glucose 115 H Lactic Acid Calcium 8.1 L Phosphorus Magnesium AST Alkaline Phosphatase Troponin T C-Reactive Protein Albumin 1.5 L Cholesterol LDL Cholesterol Direct HDL Cholesterol Urine WBC (Auto) Urine Creatinine Vancomycin Trough Crossmatch 10/04/18 10/04/18 10/05/18 12:35 18:28 04:20 WBC 14.1 H RBC 2.94 L Hgb 8.2 L Hct 25.2 L MCH MCHC RDW 17.9 H Plt Count Lymph % (Auto) 6.6 L [place] % (Auto) Eos % (Auto) 6.4 H Lymph # 0.9 L [place] # Eos # 0.9 H Seg Neutrophils % 82.7 H Seg Neuts % (Manual) Lymphocytes % (Manual) Seg Neutrophils # 11.6 H Seg Neutrophils # Man Lymphocytes # (Manual) POC ABG pH POC ABG pO2 Sodium Potassium Chloride Carbon Dioxide BUN Creatinine Glucose POC Glucose 109 H 109 H Lactic Acid Calcium Phosphorus Magnesium AST Alkaline Phosphatase Troponin T C-Reactive Protein Albumin Cholesterol LDL Cholesterol Direct HDL Cholesterol Urine WBC (Auto) Urine Creatinine Vancomycin Trough Crossmatch 10/05/18 10/05/18 10/05/18 04:20 11:45 17:32 WBC RBC Hgb Hct MCH MCHC RDW Plt Count Lymph % (Auto) [place] % (Auto) Eos % (Auto) Lymph # [place] # Eos # Seg Neutrophils % Seg Neuts % (Manual) Lymphocytes % (Manual) Seg Neutrophils # Seg Neutrophils # Man Lymphocytes # (Manual) POC ABG pH POC ABG pO2 Sodium Potassium Chloride 110.0 H Carbon Dioxide 21 L BUN 64 H Creatinine Glucose POC Glucose 118 H 113 H Lactic Acid Calcium 8.3 L Phosphorus Magnesium AST Alkaline Phosphatase Troponin T C-Reactive Protein Albumin Cholesterol LDL Cholesterol Direct HDL Cholesterol Urine WBC (Auto) Urine Creatinine Vancomycin Trough Crossmatch 10/06/18 10/06/18 10/06/18 05:15 05:15 05:35 WBC 12.3 H RBC 2.77 L Hgb 7.6 L Hct 24.1 L MCH MCHC RDW 18.1 H Plt Count Lymph % (Auto) 4.9 L [place] % (Auto) Eos % (Auto) 7.3 H Lymph # 0.6 L [place] # Eos # 0.9 H Seg Neutrophils % 81.1 H Seg Neuts % (Manual) Lymphocytes % (Manual) Seg Neutrophils # 10.0 H Seg Neutrophils # Man Lymphocytes # (Manual) POC ABG pH POC ABG pO2 Sodium 146 H Potassium Chloride 112.1 H Carbon Dioxide BUN 57 H Creatinine Glucose 120 H POC Glucose 115 H Lactic Acid Calcium Phosphorus Magnesium AST Alkaline Phosphatase Troponin T C-Reactive Protein Albumin Cholesterol LDL Cholesterol Direct HDL Cholesterol Urine WBC (Auto) Urine Creatinine Vancomycin Trough Crossmatch 10/06/18 10/06/18 10/06/18 12:31 18:44 Unknown WBC RBC Hgb Hct MCH MCHC RDW Plt Count Lymph % (Auto) [place] % (Auto) Eos % (Auto) Lymph # [place] # Eos # Seg Neutrophils % Seg Neuts % (Manual) Lymphocytes % (Manual) Seg Neutrophils # Seg Neutrophils # Man Lymphocytes # (Manual) POC ABG pH POC ABG pO2 Sodium Potassium Chloride Carbon Dioxide BUN Creatinine Glucose POC Glucose 150 H 125 H Lactic Acid Calcium Phosphorus Magnesium AST Alkaline Phosphatase Troponin T C-Reactive Protein Albumin Cholesterol LDL Cholesterol Direct HDL Cholesterol Urine WBC (Auto) Urine Creatinine Vancomycin Trough 23.5 H Crossmatch 10/07/18 10/07/18 10/07/18 05:06 05:06 08:34 WBC RBC Hgb 8.2 L Hct 25.8 L MCH MCHC RDW Plt Count Lymph % (Auto) [place] % (Auto) Eos % (Auto) Lymph # [place] # Eos # Seg Neutrophils % Seg Neuts % (Manual) Lymphocytes % (Manual) Seg Neutrophils # Seg Neutrophils # Man Lymphocytes # (Manual) POC ABG pH POC ABG pO2 Sodium Potassium Chloride 112.2 H Carbon Dioxide 21 L BUN 43 H Creatinine Glucose POC Glucose Lactic Acid Calcium 8.3 L Phosphorus Magnesium AST Alkaline Phosphatase Troponin T C-Reactive Protein Albumin Cholesterol LDL Cholesterol Direct HDL Cholesterol Urine WBC (Auto) Urine Creatinine Vancomycin Trough 23.0 H Crossmatch 10/08/18 10/08/18 10/08/18 05:07 05:07 11:09 WBC RBC 2.86 L Hgb 8.0 L Hct 24.5 L MCH MCHC RDW 18.7 H Plt Count Lymph % (Auto) 7.8 L [place] % (Auto) 8.2 H Eos % (Auto) 5.9 H Lymph # 0.8 L [place] # 0.9 H Eos # 0.6 H Seg Neutrophils % 77.8 H Seg Neuts % (Manual) Lymphocytes % (Manual) Seg Neutrophils # 8.2 H Seg Neutrophils # Man Lymphocytes # (Manual) POC ABG pH POC ABG pO2 Sodium Potassium 5.1 H Chloride 111.8 H Carbon Dioxide BUN 37 H Creatinine Glucose 101 H POC Glucose Lactic Acid Calcium 8.3 L Phosphorus Magnesium 2.50 H AST Alkaline Phosphatase Troponin T C-Reactive Protein 11.40 H Albumin Cholesterol LDL Cholesterol Direct HDL Cholesterol Urine WBC (Auto) Urine Creatinine Vancomycin Trough Crossmatch 10/09/18 05:48 WBC RBC Hgb Hct MCH MCHC RDW Plt Count Lymph % (Auto) [place] % (Auto) Eos % (Auto) Lymph # [place] # Eos # Seg Neutrophils % Seg Neuts % (Manual) Lymphocytes % (Manual) Seg Neutrophils # Seg Neutrophils # Man Lymphocytes # (Manual) POC ABG pH POC ABG pO2 Sodium Potassium 5.2 H Chloride 112.9 H Carbon Dioxide 21 L BUN 34 H Creatinine 0.7 L Glucose POC Glucose Lactic Acid Calcium Phosphorus Magnesium AST Alkaline Phosphatase Troponin T C-Reactive Protein Albumin Cholesterol LDL Cholesterol Direct HDL Cholesterol Urine WBC (Auto) Urine Creatinine Vancomycin Trough Crossmatch Allied health notes reviewed: nursing
[2018-10-10 09:16] LABS: Basophils % (Auto) 0.3 % (0.0-1.8); Eosinophils # (Auto) 0.2 K/mm3 (0.0-0.4); Eosinophils % (Auto) 1.6 % (0.0-4.3); Hematocrit 23.9 % (35.5-45.6); Hemoglobin 7.5 gm/dl (11.8-15.2); Lymphocytes # (Auto) 0.8 K/mm3 (1.2-5.4); Lymphocytes % (Auto) 5.7 % (13.4-35.0); Mean Corpuscular HGB Conc 31 % (32-34); Mean Corpuscular Volume 85 fl (84-94); Monocytes # (Auto) 1.1 K/mm3 (0.0-0.8); Monocytes % (Auto) 8.5 % (0.0-7.3); Platelet Count 406 K/mm3 (140-440); Red Cell Distribution Width 18.9 % (13.2-15.2)
[2018-10-10 09:41] LABS: BUN/Creatinine Ratio 40; Blood Urea Nitrogen 32 mg/dL (9-20); Calcium 8.5 mg/dL (8.4-10.2); Hemolysis Index 12
--- NOTE | 2018-10-10 10:00 | Progress Note ---
Assessment and Plan 1. Acute kidney injury: Vasomotor / hemodynamic MÓNICA in the setting of hypotension, sepsis and volume depletion. Renal function is improving. Monitor renal function. Avoid nephrotoxic agents. Meds dosage based on GFR. 2. FEN: Hyperkalemia, patient didn't get any of the Kayexalate orderd yesterday. Patient is also on HCTZ. Hypernatremia, improving. Monitor lytes. 3. Sepsis with shock: MRSA bacteremia. Off pressors. 4. Anemia: PRBC. 5. Multiple decubitus wound: Chronic bedridden status. 6. Encephalopathy. Subjective Date of service: 10/10/18 Principal diagnosis: Septic shock; Ac encephalopathy; Multiple decubitus ulcers; Ac renal failur Interval history: Patient was seen and examined at the bedside. Objective - Vital Signs Vital signs: Vital Signs - 12hr 10/09/18 10/09/18 10/10/18 23:36 23:37 04:32 Temperature 100.2 F H Pulse Rate 114 H 93 H Respiratory 20 20 Rate Blood Pressure 154/92 142/74 O2 Sat by Pulse 98 98 Oximetry 10/10/18 04:33 Temperature 98.8 F Pulse Rate Respiratory Rate Blood Pressure O2 Sat by Pulse Oximetry - General Appearance General appearance: well-developed, appears stated age, other (not in distress) EENT: ATNC, PERRL Respiratory: Present: Clear to Ascultation Cardiology: regular, S1S2, no murmurs Gastrointestinal: normoactive bowel sounds, no tenderness, other (PEG tube noted) Integumentary: ulcer, decubiti Neurologic: other (not following and command) Musculoskeletal: other (contractures noted, dependent edema noted) - Lab 10/10/18 09:02 10/10/18 09:02 Most recent lab results Calcium 8.5 mg/dL (8.4-10.2) 10/10/18 09:02 Phosphorus 3.80 mg/dL (2.5-4.5) 10/08/18 05:07 Magnesium 2.50 mg/dL (1.7-2.3) H 10/08/18 05:07 74.7 mg/dL (0.1-20.0) H 10/02/18 04:45 21 mmol/L 10/02/18 04:45 Medications & Allergies - Medications Allergies/Adverse Reactions: Allergies lisinopril Allergy (Verified 10/01/18 15:17) Unknown tramadol Allergy (Verified 07/29/18 18:39) Unknown Home Medications: Home Medications Medication Instructions Recorded Confirmed Last Taken Type Multivit-Min/Iron Fum/Folic AC 1 each PO DAILY 03/24/18 10/03/18 Unknown History [Wdwml-Rqjydhz-Lbujqati Tablet] Acetaminophen 650 mg NGTUBE Q6H PRN 07/30/18 10/03/18 Unknown History AtorvaSTATin [Lipitor] 40 mg NGTUBE QHS 07/30/18 10/03/18 Unknown History Dutasteride 0.5 mg NGTUBE QAM 07/30/18 10/03/18 Unknown History Ipratropium/Albuterol Sulfate 1 ampul IH BID 07/30/18 10/03/18 Unknown History [DUONEB *Not for PRN Use*] Lisinopril [Zestril TAB] 40 mg PO QDAY 07/30/18 10/03/18 Unknown History Tamsulosin [Flomax] 0.4 mg PO QDAY 07/30/18 10/03/18 Unknown History Vit C/Ascorbate Calcium,Sodium 500 mg NGTUBE BID 07/30/18 10/03/18 Unknown History [Vitamin C 500 mg/15 ml Liquid] Zinc Sulfate 220 mg NGTUBE QDAY 07/30/18 10/03/18 Unknown History levETIRAcetam [Keppra INJ] 500 mg PO Q12H 07/30/18 10/03/18 Unknown History Carvedilol [Coreg] 3.125 mg PO BID #60 tablet 08/23/18 10/03/18 Unknown Rx Furosemide [Lasix] 20 mg PO QDAY #30 tablet 08/23/18 10/03/18 Unknown Rx Oxycodone HCl/Acetaminophen 1 each PO Q8HR PRN #14 tablet 08/23/18 10/03/18 Unknown Rx [Percocet 7.5/325 mg] Phosphorus #1 [K-Phos Neutral] 250 mg PO QID #30 tablet 08/23/18 10/03/18 Unknown Rx hydroCHLOROthiazide [HCTZ] 12.5 mg PO QDAY #30 tablet 08/23/18 10/03/18 Unknown Rx Active Medications: Generic Name Dose Route Start Last Admin Trade Name Freq PRN Reason Stop Dose Admin Acetaminophen 650 mg 10/01/18 15:32 10/10/18 03:31 Tylenol FEEDTUBE 650 mg Q6H PRN Administration Pain, Moderate (4-6) Albuterol 2.5 mg 10/01/18 17:40 10/04/18 21:02 Proventil IH 2.5 mg Q3HRT PRN Administration Shortness Of Breath Lipase/Protease/Amylase 1 each 10/04/18 14:58 Pancreaze 10,500 Unit FEEDTUBE PRN PRN For Clogged Feeding Tube Ascorbic Acid 500 mg 10/04/18 10:00 10/09/18 22:25 Vitamin C FEEDTUBE 500 mg BID NORA Administration Atorvastatin Calcium 40 mg 10/01/18 22:00 10/09/18 22:25 Lipitor FEEDTUBE 40 mg QHS NORA Administration Carvedilol 3.125 mg 10/09/18 16:00 10/09/18 22:25 Coreg PO 3.125 mg BID NORA Administration Clonidine HCl 0.2 mg 10/08/18 10:00 10/08/18 09:52 Catapres-Tts Patch TD 0.2 mg Tu NORA Administration Famotidine 20 mg 10/03/18 12:00 10/09/18 11:15 Pepcid PO 20 mg DAILY NORA Administration Furosemide 20 mg 10/09/18 16:00 Lasix PO QDAY NORA Heparin Sodium (Porcine) 5,000 unit 10/01/18 22:00 10/09/18 22:25 Heparin SUB-Q 5,000 unit Q12HR NORA Administration Hydralazine HCl 10 mg 10/07/18 15:12 10/07/18 18:00 Apresoline IV 10 mg Q4HR PRN Administration Blood Pressure Hydrochlorothiazide 12.5 mg 10/09/18 18:00 Hctz PO QDAY NORA Vancomycin HCl 1 gm in 250 mls @ 167.007 mls/hr 10/08/18 10:00 10/08/18 10:00 Vancomycin/Ns 1 Gm/250 Ml IV 167.007 mls/hr Q48HR NORA Administration Levetiracetam 500 mg 10/01/18 22:00 10/09/18 22:25 Keppra PO 500 mg BID NORA Administration Multivitamins 1 each 10/02/18 10:00 10/09/18 11:15 Theragran Tab PO 1 each DAILY NORA Administration Oxycodone/Acetaminophen 1 tab 10/02/18 20:16 10/08/18 23:23 Percocet 5/325 PO 1 tab Q4H PRN Administration Pain, Moderate (4-6) Simple Syrup 15 ml 10/02/18 10:35 Simple Syrup FEEDTUBE PRN PRN Hypoglycemia Simple Syrup 30 ml 10/02/18 10:35 Simple Syrup FEEDTUBE PRN PRN Hypoglycemia Sodium Bicarbonate 325 mg 10/02/18 10:35 Sodium Bicarbonate FEEDTUBE PRN PRN For Clogged Feeding Tube Sodium Chloride 10 ml 10/01/18 22:00 10/09/18 22:25 Sodium Chloride Flush Syringe 10 Ml IV 10 ml BID NORA Administration Sodium Chloride 10 ml 10/01/18 17:40 10/05/18 21:30 Sodium Chloride Flush Syringe 10 Ml IV 10 ml PRN PRN Administration LINE FLUSH Zinc Sulfate 220 mg 10/02/18 10:00 10/09/18 11:16 Zinc Sulfate PO 220 mg QDAY NORA Administration
[2018-10-10] MEDS: LASIX PO SCH (10:39)
[2018-10-10] MEDS: PEPCID PO SCH (10:39)
[2018-10-10] MEDS: COREG PO SCH ×3 (10:39→22:06)
[2018-10-10] MEDS: HCTZ PO SCH (10:40)
[2018-10-10] MEDS: THERAGRAN Tab PO SCH (10:40)
[2018-10-10] MEDS: HEPARIN SUB-Q SCH ×2 (10:40→22:03)
[2018-10-10] MEDS: SODIUM CHLORIDE FLUSH SYRINGE 10 ML IV SCH ×2 (10:40→22:05)
[2018-10-10] MEDS: ZINC SULFATE PO SCH (10:40)
[2018-10-10] MEDS: VITAMIN C FEEDTUBE SCH ×2 (10:40→22:04)
[2018-10-10] MEDS: KEPPRA PO SCH ×2 (10:40→22:04)
[2018-10-10] MEDS ORDERED: D50W (25GM) Vial IV ONE (11:00)
[2018-10-10] MEDS ORDERED: HumuLIN R IV NR (11:00)
[2018-10-10] MEDS: KIONEX PO SCH ×3 (11:41→17:38)
[2018-10-10] MEDS: VANCOMYCIN/NS 1 GM/250 ML 1 GM/250 ML BAG IV SCH (11:42)
[2018-10-10] MEDS ORDERED: KIONEX PO SCH (12:00)
[2018-10-10] MEDS ORDERED: D50W (25GM) Syringe IV ONE (13:00)
--- NOTE | 2018-10-10 13:18 | Progress Note ---
Assessment and Plan Assessment and plan: Severe sepsis with shock, POA due to bacteremia, UTI and RUL PNA continue Sepsis Protocol: IV antibiotic therapy, IVF resuscitation therapy, MRSA on Blood cultures, s/p IV pressors , ID consulted Per ID: - Continue vancomycin now for MRSA bacteremia. So far no clear source for MRSA bacteremia but suspected possible infected decubitus ulcer - treated with meropenem for 5 days to cover UTI as urine culture was not sent and he has h/o MDR GNRs MRSA bacteremia - possible source infected decubitus ulcer - cont vanc, ID following, 2d echo showed no vegetation Decubitus ulcer, multiple with different stages - cont wound care, abx per ID - Could be the source for bacteremia, ID ordered for WBC scan but could not be done because of his chronic contracture/anatomical position Anemia, s/p 2 units blood transfusion, likely AOCD and severe sepsis - stool for occult blood negative, cont to monitor Hyperkalemia. Give kayexalate, Insulin, Dextrose, repeat in am MÓNICA with vasomotor nephropathy renal function stable with IVF resuscitation therapy, monitor uop q shift, nephrology consulted in ED. Right upper lobe Pneumonia, suspect aspiration Treated with IV antibiotic therapy, supplemental oxygen, pulse oximetry, Elevated troponin Likely due to sepsis with low blood pressure and renal failure Monitor with Serial cardiac enzymes, Cardiology consulted in ED, No EKG changes, supportive care, UTI (lower urinary tract infection) Treated with IV antibiotic therapy, IV fluids Acute hypoxic Respiratory failure Likely due to underlying pneumonia Continue to provide Supplemental oxygen, nebulizer therapy, NIPPV as clinically indicated, pulse oximetry, Moderate to severe protein calorie malnutrition - BMI 17.8, albumin 1.7 - consulted dietary, continue tube feeding for now hypernatremia, on hypotonic saline Hypokalemia/hyperkalemia, - repleted for hypokalemia now potassium level 5.2 - Given 1 dose of Kayexalate will follow response Hypertension, placed on clonidine patch DVT prophylaxis SCD to BLE while in bed, prophylactic heparin Disposition: wait for final ID recommendation for d/c abx coverage History Interval history: patient with MRSA bacteremia Hospitalist Physical - Physical exam Narrative exam: Gen: Not in acute distress, lying in bed, HEENT: Normocephalic, atraumatic Neck: supple, no JVD Heart: S1 and S2 reg, no murmurs, rubs or gallop Lungs: Clear, no crackles, no wheeze Abd: soft, non tender, non distended, normal BS Ext: No edema, no clubbing, no cyanosis, Neuro: Lethargic, does not follow commands - Constitutional Vitals: Temp Pulse Resp BP Pulse Ox 98.8 F 93 H 20 142/74 98 10/10/18 04:33 10/10/18 04:32 10/10/18 04:32 10/10/18 04:32 10/10/18 04:32 General appearance: Present: no acute distress Results - Labs CBC & Chem 7: 10/11/18 04:41 10/11/18 04:41 Labs: Laboratory Last Values WBC 13.6 K/mm3 (4.5-11.0) H 10/10/18 09:02 RBC 2.80 M/mm3 (3.65-5.03) L 10/10/18 09:02 Hgb 7.5 gm/dl (11.8-15.2) L 10/10/18 09:02 Hct 23.9 % (35.5-45.6) L 10/10/18 09:02 MCV 85 fl (84-94) 10/10/18 09:02 MCH 27 pg (28-32) L 10/10/18 09:02 MCHC 31 % (32-34) L 10/10/18 09:02 RDW 18.9 % (13.2-15.2) H 10/10/18 09:02 Plt Count 406 K/mm3 (140-440) 10/10/18 09:02 Lymph % (Auto) 5.7 % (13.4-35.0) L 10/10/18 09:02 [place] % (Auto) 8.5 % (0.0-7.3) H 10/10/18 09:02 Eos % (Auto) 1.6 % (0.0-4.3) 10/10/18 09:02 Baso % (Auto) 0.3 % (0.0-1.8) 10/10/18 09:02 Lymph # 0.8 K/mm3 (1.2-5.4) L 10/10/18 09:02 [place] # 1.1 K/mm3 (0.0-0.8) H 10/10/18 09:02 Eos # 0.2 K/mm3 (0.0-0.4) 10/10/18 09:02 Baso # 0.0 K/mm3 (0.0-0.1) 10/10/18 09:02 Add Manual Diff Complete 10/02/18 04:45 Total Counted 100 10/02/18 04:45 Seg Neutrophils % 83.9 % (40.0-70.0) H 10/10/18 09:02 Seg Neuts % (Manual) 78.0 % (40.0-70.0) H 10/02/18 04:45 14.0 % 10/02/18 04:45 5.0 % (13.4-35.0) L 10/02/18 04:45 Reactive Lymphs % (Man) 0 % 10/02/18 04:45 2.0 % (0.0-7.3) 10/02/18 04:45 1.0 % (0.0-4.3) 10/02/18 04:45 0 % (0.0-1.8) 10/02/18 04:45 0 % 10/02/18 04:45 0 % 10/02/18 04:45 0 % 10/02/18 04:45 0 % 10/02/18 04:45 Nucleated RBC % Not Reportable 10/02/18 04:45 Seg Neutrophils # 11.4 K/mm3 (1.8-7.7) H 10/10/18 09:02 Seg Neutrophils # Man 14.3 K/mm3 (1.8-7.7) H 10/02/18 04:45 Band Neutrophils # 2.6 K/mm3 10/02/18 04:45 0.9 K/mm3 (1.2-5.4) L 10/02/18 04:45 Abs React Lymphs (Man) 0.0 K/mm3 10/02/18 04:45 0.4 K/mm3 (0.0-0.8) 10/02/18 04:45 0.2 K/mm3 (0.0-0.4) 10/02/18 04:45 0.0 K/mm3 (0.0-0.1) 10/02/18 04:45 0.0 K/mm3 10/02/18 04:45 0.0 K/mm3 10/02/18 04:45 0.0 K/mm3 10/02/18 04:45 Blast Cells # 0.0 K/mm3 10/02/18 04:45 WBC Morphology Not Reportable 10/02/18 04:45 WBC Morphology TNR 10/02/18 04:45 Hypersegmented Neuts Not Reportable 10/02/18 04:45 Hyposegmented Neuts Not Reportable 10/02/18 04:45 Hypogranular Neuts Not Reportable 10/02/18 04:45 Not Reportable 10/02/18 04:45 Not Reportable 10/02/18 04:45 Not Reportable 10/02/18 04:45 Not Reportable 10/02/18 04:45 Not Reportable 10/02/18 04:45 Not Reportable 10/02/18 04:45 Consistent w auto 10/02/18 04:45 Not Reportable 10/02/18 04:45 Plt Clumps, EDTA Not Reportable 10/02/18 04:45 Not Reportable 10/02/18 04:45 Not Reportable 10/02/18 04:45 Not Reportable 10/02/18 04:45 Plt Morphology Comment Not Reportable 10/02/18 04:45 RBC Morphology Not Reportable 10/02/18 04:45 Dimorphic RBCs Not Reportable 10/02/18 04:45 Few 10/02/18 04:45 Not Reportable 10/02/18 04:45 Not Reportable 10/02/18 04:45 1+ 10/02/18 04:45 Not Reportable 10/02/18 04:45 2+ 10/02/18 04:45 Not Reportable 10/02/18 04:45 Not Reportable 10/02/18 04:45 Not Reportable 10/02/18 04:45 Not Reportable 10/02/18 04:45 Not Reportable 10/02/18 04:45 Not Reportable 10/02/18 04:45 Not Reportable 10/02/18 04:45 Not Reportable 10/02/18 04:45 Not Reportable 10/02/18 04:45 Not Reportable 10/02/18 04:45 Not Reportable 10/02/18 04:45 Not Reportable 10/02/18 04:45 Not Reportable 10/02/18 04:45 Acanthocytes (Spur) Not Reportable 10/02/18 04:45 Rouleaux Not Reportable 10/02/18 04:45 Not Reportable 10/02/18 04:45 Not Reportable 10/02/18 04:45 Not Reportable 10/02/18 04:45 Not Reportable 10/02/18 04:45 Hem Pathologist Commnt No 10/02/18 04:45 POC ABG pH 7.480 (7.35-7.45) H 10/01/18 18:12 POC ABG pO2 64 (80-105) L 10/01/18 18:12 POC ABG HCO3 21.0 (22-26 mml/L) 10/01/18 18:12 POC ABG Total CO2 22 (23-27mmol/L) 10/01/18 18:12 POC ABG O2 Sat 94 10/01/18 18:12 POC ABG Base Excess -3 ((-2) - (+3)mmol/L) 10/01/18 18:12 32 % 10/01/18 18:12 Sodium 144 mmol/L (137-145) 10/10/18 09:02 Potassium 5.6 mmol/L (3.6-5.0) H 10/10/18 09:02 Chloride 111.7 mmol/L (98-107) H 10/10/18 09:02 Carbon Dioxide 23 mmol/L (22-30) 10/10/18 09:02 15 mmol/L 10/10/18 09:02 BUN 32 mg/dL (9-20) H 10/10/18 09:02 0.8 mg/dL (0.8-1.5) 10/10/18 09:02 Estimated GFR > 60 ml/min 10/10/18 09:02 40 % 10/10/18 09:02 Glucose 109 mg/dL (75-100) H 10/10/18 09:02 POC Glucose 99 (70-105) 10/07/18 15:25 Lactic Acid 1.70 mmol/L (0.7-2.0) 10/03/18 22:45 Calcium 8.5 mg/dL (8.4-10.2) 10/10/18 09:02 Phosphorus 3.80 mg/dL (2.5-4.5) 10/08/18 05:07 Magnesium 2.50 mg/dL (1.7-2.3) H 10/08/18 05:07 < 0.20 mg/dL (0.1-1.2) 10/04/18 07:00 < 0.2 mg/dL (0-0.2) 10/04/18 07:00 0.0 mg/dL 10/04/18 07:00 AST 25 units/L (5-40) 10/04/18 07:00 ALT 15 units/L (7-56) 10/04/18 07:00 124 units/L (35-129) 10/04/18 07:00 0.336 ng/mL (0.00-0.029) H* 10/01/18 23:48 11.40 mg/dL (0.00-1.30) H 10/08/18 05:07 6.5 g/dL (6.3-8.2) 10/04/18 07:00 1.5 g/dL (3.9-5) L 10/04/18 07:00 0.3 % 10/04/18 07:00 Triglycerides 111 mg/dL (2-149) 10/01/18 14:29 Cholesterol 36 mg/dL (50-199) L 10/01/18 14:29 6 mg/dL (50-130) L 10/01/18 14:29 21 mg/dL (40-59) L 10/01/18 14:29 1.71 % 10/01/18 14:29 Free PSA See scanned result 10/01/18 17:53 % Free PSA Calc See scanned result 10/01/18 17:53 Total PSA See scanned result 10/01/18 17:53 TSH 0.870 mlU/mL (0.270-4.200) 10/01/18 18:23 Free T4 1.05 ng/dL (0.76-1.46) 10/01/18 18:23 [place] (Yellow) 10/01/18 15:13 Cloudy (Clear) 10/01/18 15:13 5.0 (5.0-7.0) 10/01/18 15:13 Ur Specific [place] 1.023 (1.003-1.030) 10/01/18 15:13 100 mg/dl mg/dL (Negative) 10/01/18 15:13 Neg mg/dL (Negative) 10/01/18 15:13 Tr mg/dL (Negative) 10/01/18 15:13 Neg (Negative) 10/01/18 15:13 Neg (Negative) 10/01/18 15:13 Neg (Negative) 10/01/18 15:13 < 2.0 mg/dL (<2.0) 10/01/18 15:13 Ur Leukocyte Esterase Lg (Negative) 10/01/18 15:13 > 182.0 /HPF (0.0-6.0) H 10/01/18 15:13 12.0 /HPF (0.0-6.0) 10/01/18 15:13 4+ /HPF (Negative) 10/01/18 15:13 3+ /HPF 10/01/18 15:13 74.7 mg/dL (0.1-20.0) H 10/02/18 04:45 21 mmol/L 10/02/18 04:45 Vancomycin Trough 23.0 ug/mL (5.0-20.0) H 10/07/18 08:34 Blood Type O POSITIVE 10/02/18 09:46 Antibody Screen Negative 10/02/18 09:46 Crossmatch See Detail 10/02/18 09:46 Active Medications - Current Medications Current Medications: Generic Name Dose Route Start Last Admin Trade Name Freq PRN Reason Stop Dose Admin Acetaminophen 650 mg 10/01/18 15:32 10/10/18 03:31 Tylenol FEEDTUBE 650 mg Q6H PRN Administration Pain, Moderate (4-6) Albuterol 2.5 mg 10/01/18 17:40 10/04/18 21:02 Proventil IH 2.5 mg Q3HRT PRN Administration Shortness Of Breath Lipase/Protease/Amylase 1 each 10/04/18 14:[address] 10,500 Unit FEEDTUBE PRN PRN For Clogged Feeding Tube Ascorbic Acid 500 mg 10/04/18 10:00 10/10/18 10:40 Vitamin C FEEDTUBE 500 mg BID NORA Administration Atorvastatin Calcium 40 mg 10/01/18 22:00 10/09/18 22:25 Lipitor FEEDTUBE 40 mg QHS NORA Administration Carvedilol 3.125 mg 10/09/18 16:00 10/10/18 10:39 Coreg PO 3.125 mg BID NORA Administration Clonidine HCl 0.2 mg 10/08/18 10:00 10/08/18 09:52 Catapres-Tts Patch TD 0.2 mg Tu NORA Administration Famotidine 20 mg 10/03/18 12:00 10/10/18 10:39 Pepcid PO 20 mg DAILY NORA Administration Furosemide 20 mg 10/09/18 16:00 10/10/18 10:39 Lasix PO 20 mg QDAY NORA Administration Heparin Sodium (Porcine) 5,000 unit 10/01/18 22:00 10/10/18 10:40 Heparin SUB-Q 5,000 unit Q12HR NORA Administration Hydralazine HCl 10 mg 10/07/18 15:12 10/07/18 18:00 Apresoline IV 10 mg Q4HR PRN Administration Blood Pressure Hydrochlorothiazide 12.5 mg 10/09/18 18:00 10/10/18 10:40 Hctz PO 12.5 mg QDAY NORA Administration Vancomycin HCl 1 gm in 250 mls @ 167.007 mls/hr 10/08/18 10:00 10/10/18 11:42 Vancomycin/Ns 1 Gm/250 Ml IV 167.007 mls/hr Q48HR NORA Administration Levetiracetam 500 mg 10/01/18 22:00 10/10/18 10:40 Keppra PO 500 mg BID NORA Administration Multivitamins 1 each 10/02/18 10:00 10/10/18 10:40 Theragran Tab PO 1 each DAILY NORA Administration Oxycodone/Acetaminophen 1 tab 10/02/18 20:16 10/08/18 23:23 Percocet 5/325 PO 1 tab Q4H PRN Administration Pain, Moderate (4-6) Simple Syrup 15 ml 10/02/18 10:35 Simple Syrup FEEDTUBE PRN PRN Hypoglycemia Simple Syrup 30 ml 10/02/18 10:35 Simple Syrup FEEDTUBE PRN PRN Hypoglycemia Sodium Bicarbonate 325 mg 10/02/18 10:35 Sodium Bicarbonate FEEDTUBE PRN PRN For Clogged Feeding Tube Sodium Chloride 10 ml 10/01/18 22:00 10/10/18 10:40 Sodium Chloride Flush Syringe 10 Ml IV 10 ml BID NORA Administration Sodium Chloride 10 ml 10/01/18 17:40 10/05/18 21:30 Sodium Chloride Flush Syringe 10 Ml IV 10 ml PRN PRN Administration LINE FLUSH Sodium Polystyrene Sulfonate 30 gm 10/10/18 11:00 10/10/18 11:41 Kionex PO 30 gm Q6HR NORA Administration Zinc Sulfate 220 mg 10/02/18 10:00 10/10/18 10:40 Zinc Sulfate PO 220 mg QDAY NORA Administration Nutrition/Malnutrition Assess - Dietary Evaluation Nutrition/Malnutrition Findings: Nutrition Notes Start: 10/02/18 10:21 Freq: Status: Active Protocol: Document 10/07/18 15:09 RM (Rec: 10/07/18 15:10 RM [id number]) Nutrition Notes Initial or Follow up Reassessment Current Diagnosis Acute Kidney Injury,COPD, Decubitus(Pressure Ulcer), Diabetes,Sepsis,Hypertension, Heart Failure,Stroke Other Pertinent Diagnosis UTI, pneu, dementia, multiple PU Current Diet Glucerna 1.2 at 60 ml/hr Labs/Tests Na 144 Pertinent Medications Reviewed Height 5 ft 8 in Weight 68 kg [place] Body Weight (kg) 70.00 BMI 22.8 Weight change and time frame Current wt obtained from [facility]. Wt gain possibly d/t fluid change. Subjective/Other Information Observed Glucerna 1.2 infusing at 60 ml/hr. Per nurse pt is tolerating TF. Percent of energy/protein needs met: 94%/100% Burn Absent Trauma Absent #1 Nutrition Diagnosis Malnutrition Diagnosis Progress(for reassessment Continues documentation) Is patient on ventilator? No Is Patient Ambulatory and/or Out of Bed No REE-([facility]-confined to bed) 1715.112 Kcal/Kg value to use for calculation 27 Approximate Energy Requirements Using 1836 kcal/Kg Calculation Used for Recommendations Kcal/kg Additional Notes Protein needs are 64-140g (1.2 -2g/kg) Fluid needs are 1ml/kcal Nutrition Intervention Nutrition Support: Glucerna 1.2 at 60ml/hr Flush with 150 ml q4h. Kcal 1,728 Protein (gm) 86 Fluid (mL) 1,163 Goal #1 Continue to meet at least 80% of kcal and protein needs Goal #2 Wound healing Anticipated Discharge Needs: Unable to determine at this time Follow-Up By: 10/15/18 Additional Comments Follow for TF tolerance
--- NOTE | 2018-10-10 15:10 | Progress Note ---
Assessment and Plan Cultures: Blood culture 10/01/2018 MRSA 2 of 4. Blood culture 10/03/2018 no growth Assessment: 67 y/o male with hsitory of HTN, CVA, Obstructive Uropathy, Contracture, Multiple Decubitus Ulcers, [place], DM, OA, Seizure Disorder, COPD, Dementia, Debility, BPH, well known to ID due to multiple admissions from ducubitus ulcers infections, resident of custodial, admitted on due to decreased respo nsiveness compared to baseline and hypotension SBP in 60's: 1) Severe Sepsis with septic shock: new isolated fever. Etiology most likely Staph bacteremia. 2) MRSA bacteremia: source likely multiple decubitus or UTI. Blood culture 10/01/2018 GPC in clusters 2 of 4. TTE no negative. 3) Recent septic shock due to polymicrobial bacteremia ESBL E coli, MDR Proteus, Strep and E faecalis on 07/29/2018 probably from multiple infected decubitus ulcers and less likely UTI. Repeat blood cultures 07/31/2018 showed same MDR E coli 1 of 4 bottles then 08/06/2018 blood cultures showed no growth. Patient did not respond to carbapenem and was placed on vabomere for 14 days. 4) Multiple infected decubitus ulcers: currently active large left trochanteric with bone exposure and sacral with bone exposure. His prognosis has been poor and discussed previously with family hospice indication but they declined. His wounds are not curable considering his contractures, bed bound status and poor nutritional status. There was also suspicion of septic arthritis of left hip from decubitus ulcer. 5) Recurrent CAUTI 6) Acute encephalopathy: resolved. 7) MÓNICA: resolved with high K. Recommendations: - Continue wound care - Continue vancomycin D9 for MRSA bacteremia. - WBC tagged scan ordered - Unable to perform because of contractions - Anticipate discharge on Vancomycin 1 gm every 48 hours for total 6 weeks ending 11-12-18 - Order placed with case management - monitor fever Will follow. Penny Bernardo MD Infectious Diseases [facility] M [phone] O [phone] Subjective Date of service: 10/10/18 Principal diagnosis: Septic shock; Ac encephalopathy; Multiple decubitus ulcers; Ac renal failur Interval history: Feels ok alert, talking, tmax 100.2 ROS limited confused Objective - Exam Narrative Exam: General appearance: Alert in NAD verbal Eyes: anicteric sclerae, moist conjunctivae; no lid-lag; PERRLA HENT: Atraumatic; oropharynx limited Neck: Trachea midline; supple, no thyromegaly or lymphadenopathy Lungs: scattered rhonchi CV: tachycardic Abdomen: Soft, non-tender;PEG Extremities: altaf contracted legs, multiple wounds covered Skin: multiple skin tears Psych: no agitated Neuro: alert non verbal no agitated WOUND CARE EVAL LEFT TROCHANTER STAGE 4 PRESSURE INJURY. LARGE AMOUNT OF YELLOW DRAINAGE. NO ODOR. WOUND PROBES TO A DEPTH OF 8CM. 6X6X8. THERE IS BONE EXPOSED. CLEANSED WITH WOUND CLEANSER. PACKED WITH 2 PIECES OF 4X4 ALGINATE. COVERED WITH 4X4 GAUZE, THEN TELFA. STAGE 4 SACRAL PRESSURE INJURY NOTED. PINK GRANULATION TISSUE. MODERATE AMOUNT OF YELLOW DRAINAGE. BONE IS EXPOSED. PERIWOUND SKIN IS INTACT. MEASURES [id number] CLEANSED WITH WOUND CLEANSER. ALGINATE APPLIED. COVERED WITH 4X4 GAUZE, THEN TELFA. - Constitutional Vitals: Vital Signs Temp Pulse Resp BP Pulse Ox 98.8 F 93 H 20 142/74 100 10/10/18 04:33 10/10/18 04:32 10/10/18 04:32 10/10/18 04:32 10/10/18 14:36 Temperature -Last 24 Hours Temperature 98.8 F Temperature 100.2 F Temperature 99.6 F - Labs CBC & Chem 7: 10/10/18 09:02 10/10/18 09:02 Labs: Abnormal lab results 10/10/18 10/10/18 Range/Units 09:02 09:02 WBC 13.6 H (4.5-11.0) K/mm3 RBC 2.80 L (3.65-5.03) M/mm3 Hgb 7.5 L (11.8-15.2) gm/dl Hct 23.9 L (35.5-45.6) % MCH 27 L (28-32) pg MCHC 31 L (32-34) % RDW 18.9 H (13.2-15.2) % Lymph % (Auto) 5.7 L (13.4-35.0) % Thomas % (Auto) 8.5 H (0.0-7.3) % Lymph # 0.8 L (1.2-5.4) K/mm3 Thomas # 1.1 H (0.0-0.8) K/mm3 Seg Neutrophils % 83.9 H (40.0-70.0) % Seg Neutrophils # 11.4 H (1.8-7.7) K/mm3 Potassium 5.6 H (3.6-5.0) mmol/L Chloride 111.7 H (98-107) mmol/L BUN 32 H (9-20) mg/dL Glucose 109 H (75-100) mg/dL
[2018-10-11] MEDS: TYLENOL FEEDTUBE PRN (00:54)
[2018-10-11 06:23] LABS: Hemoglobin 6.9 gm/dl (11.8-15.2); Mean Corpuscular HGB Conc 31 % (32-34); Mean Corpuscular Volume 88 fl (84-94); Platelet Count 364 K/mm3 (140-440); Red Blood Count 2.52 M/mm3 (3.65-5.03)
[2018-10-11 07:21] LABS: BUN/Creatinine Ratio 38; Blood Urea Nitrogen 30 mg/dL (9-20); Calcium 8.2 mg/dL (8.4-10.2); Hemolysis Index 18
--- NOTE | 2018-10-11 08:05 | Progress Note ---
Assessment and Plan 1. Acute kidney injury: Vasomotor / hemodynamic MÓNICA in the setting of hypotension, sepsis and volume depletion. Renal function is improving. Monitor renal function. Avoid nephrotoxic agents. Meds dosage based on GFR. 2. FEN: Hyperkalemia, K level is better today. Patient is also on HCTZ. Hypernatremia, improving. Monitor lytes. 3. Sepsis with shock: MRSA bacteremia. Off pressors. 4. Anemia: PRBC. 5. Multiple decubitus wound: Chronic bedridden status. 6. Encephalopathy. Subjective Date of service: 10/11/18 Principal diagnosis: Septic shock; Ac encephalopathy; Multiple decubitus ulcers; Ac renal failur Interval history: Patient was seen and examined at the bedside. Objective - Vital Signs Vital signs: Vital Signs - 12hr 10/10/18 10/10/18 10/10/18 20:25 20:26 20:30 Temperature 100.2 F H Pulse Rate 108 H 108 H Respiratory 20 Rate Blood Pressure 152/76 Blood Pressure [Left] O2 Sat by Pulse 96 Oximetry 10/10/18 10/11/18 10/11/18 23:59 00:00 00:54 Temperature 99.9 F H Pulse Rate 97 H Respiratory 20 20 Rate Blood Pressure 144/76 Blood Pressure [Left] O2 Sat by Pulse 98 Oximetry 10/11/18 04:22 Temperature 98.8 F Pulse Rate 98 H Respiratory 22 Rate Blood Pressure Blood Pressure 161/76 [Left] O2 Sat by Pulse 97 Oximetry - General Appearance General appearance: well-developed, appears stated age, other (not in distress) EENT: ATNC Neck: other (Trachea midline) Respiratory: Present: Clear to Ascultation Cardiology: regular, S1S2, no murmurs Gastrointestinal: normoactive bowel sounds, no tenderness, no distended, other (PEG tube noted) Integumentary: ulcer, decubiti Neurologic: other (non-verbal, not following any command) Musculoskeletal: other (contractures noted) - Lab 10/12/18 04:22 10/12/18 04:22 Most recent lab results Calcium 8.2 mg/dL (8.4-10.2) L 10/11/18 04:41 Phosphorus 3.80 mg/dL (2.5-4.5) 10/08/18 05:07 Magnesium 2.50 mg/dL (1.7-2.3) H 10/08/18 05:07 74.7 mg/dL (0.1-20.0) H 10/02/18 04:45 21 mmol/L 10/02/18 04:45 Medications & Allergies - Medications Allergies/Adverse Reactions: Allergies lisinopril Allergy (Verified 10/01/18 15:17) Unknown tramadol Allergy (Verified 07/29/18 18:39) Unknown Home Medications: Home Medications Medication Instructions Recorded Confirmed Last Taken Type Multivit-Min/Iron Fum/Folic AC 1 each PO DAILY 03/24/18 10/03/18 Unknown History [Pyltr-Cqkqwsi-Flefhazn Tablet] Acetaminophen 650 mg NGTUBE Q6H PRN 07/30/18 10/03/18 Unknown History AtorvaSTATin [Lipitor] 40 mg NGTUBE QHS 07/30/18 10/03/18 Unknown History Dutasteride 0.5 mg NGTUBE QAM 07/30/18 10/03/18 Unknown History Ipratropium/Albuterol Sulfate 1 ampul IH BID 07/30/18 10/03/18 Unknown History [DUONEB *Not for PRN Use*] Lisinopril [Zestril TAB] 40 mg PO QDAY 07/30/18 10/03/18 Unknown History Tamsulosin [Flomax] 0.4 mg PO QDAY 07/30/18 10/03/18 Unknown History Vit C/Ascorbate Calcium,Sodium 500 mg NGTUBE BID 07/30/18 10/03/18 Unknown History [Vitamin C 500 mg/15 ml Liquid] Zinc Sulfate 220 mg NGTUBE QDAY 07/30/18 10/03/18 Unknown History levETIRAcetam [Keppra INJ] 500 mg PO Q12H 07/30/18 10/03/18 Unknown History Carvedilol [Coreg] 3.125 mg PO BID #60 tablet 08/23/18 10/03/18 Unknown Rx Furosemide [Lasix] 20 mg PO QDAY #30 tablet 08/23/18 10/03/18 Unknown Rx Oxycodone HCl/Acetaminophen 1 each PO Q8HR PRN #14 tablet 08/23/18 10/03/18 Unknown Rx [Percocet 7.5/325 mg] Phosphorus #1 [K-Phos Neutral] 250 mg PO QID #30 tablet 08/23/18 10/03/18 Unknown Rx hydroCHLOROthiazide [HCTZ] 12.5 mg PO QDAY #30 tablet 08/23/18 10/03/18 Unknown Rx Active Medications: Generic Name Dose Route Start Last Admin Trade Name Freq PRN Reason Stop Dose Admin Acetaminophen 650 mg 10/01/18 15:32 10/11/18 00:54 Tylenol FEEDTUBE 650 mg Q6H PRN Administration Pain, Moderate (4-6) Albuterol 2.5 mg 10/01/18 17:40 10/04/18 21:02 Proventil IH 2.5 mg Q3HRT PRN Administration Shortness Of Breath Lipase/Protease/Amylase 1 each 10/04/18 14:[address] 10,500 Unit FEEDTUBE PRN PRN For Clogged Feeding Tube Ascorbic Acid 500 mg 10/04/18 10:00 10/10/18 22:04 Vitamin C FEEDTUBE 500 mg BID NORA Administration Atorvastatin Calcium 40 mg 10/01/18 22:00 10/10/18 22:04 Lipitor FEEDTUBE 40 mg QHS NORA Administration Carvedilol 3.125 mg 10/09/18 16:00 10/10/18 22:06 Coreg PO 3.125 mg BID NORA Administration Clonidine HCl 0.2 mg 10/08/18 10:00 10/08/18 09:52 Catapres-Tts Patch TD 0.2 mg Tu NORA Administration Famotidine 20 mg 10/03/18 12:00 10/10/18 10:39 Pepcid PO 20 mg DAILY NORA Administration Furosemide 20 mg 10/09/18 16:00 10/10/18 10:39 Lasix PO 20 mg QDAY NORA Administration Heparin Sodium (Porcine) 5,000 unit 10/01/18 22:00 10/10/18 22:03 Heparin SUB-Q 5,000 unit Q12HR NORA Administration Hydralazine HCl 10 mg 10/07/18 15:12 10/07/18 18:00 Apresoline IV 10 mg Q4HR PRN Administration Blood Pressure Hydrochlorothiazide 12.5 mg 10/09/18 18:00 10/10/18 10:40 Hctz PO 12.5 mg QDAY NORA Administration Vancomycin HCl 1 gm in 250 mls @ 167.007 mls/hr 10/08/18 10:00 10/10/18 11:42 Vancomycin/Ns 1 Gm/250 Ml IV 167.007 mls/hr Q48HR NORA Administration Levetiracetam 500 mg 10/01/18 22:00 10/10/18 22:04 Keppra PO 500 mg BID NORA Administration Multivitamins 1 each 10/02/18 10:00 10/10/18 10:40 Theragran Tab PO 1 each DAILY NORA Administration Oxycodone/Acetaminophen 1 tab 10/02/18 20:16 10/08/18 23:23 Percocet 5/325 PO 1 tab Q4H PRN Administration Pain, Moderate (4-6) Simple Syrup 15 ml 10/02/18 10:35 Simple Syrup FEEDTUBE PRN PRN Hypoglycemia Simple Syrup 30 ml 10/02/18 10:35 Simple Syrup FEEDTUBE PRN PRN Hypoglycemia Sodium Bicarbonate 325 mg 10/02/18 10:35 Sodium Bicarbonate FEEDTUBE PRN PRN For Clogged Feeding Tube Sodium Chloride 10 ml 10/01/18 22:00 10/10/18 22:05 Sodium Chloride Flush Syringe 10 Ml IV 10 ml BID NORA Administration Sodium Chloride 10 ml 10/01/18 17:40 10/05/18 21:30 Sodium Chloride Flush Syringe 10 Ml IV 10 ml PRN PRN Administration LINE FLUSH Zinc Sulfate 220 mg 10/02/18 10:00 10/10/18 10:40 Zinc Sulfate PO 220 mg QDAY NORA Administration
[2018-10-11] MEDS ORDERED: NACL 0.9% 500 ML 500 ML IV ONE (08:11)
[2018-10-11] MEDS: ZINC SULFATE PO SCH (10:11)
[2018-10-11] MEDS: SODIUM CHLORIDE FLUSH SYRINGE 10 ML IV SCH ×2 (10:25→22:58)
[2018-10-11] MEDS: THERAGRAN Tab PO SCH (10:57)
[2018-10-11] MEDS: COREG PO SCH ×2 (10:57→22:58)
[2018-10-11] MEDS: KEPPRA PO SCH ×2 (10:57→22:58)
[2018-10-11] MEDS: HCTZ PO SCH (10:58)
[2018-10-11] MEDS: PEPCID PO SCH (10:58)
[2018-10-11] MEDS: VITAMIN C FEEDTUBE SCH ×2 (10:58→22:58)
[2018-10-11] MEDS: HEPARIN SUB-Q SCH ×2 (10:59→22:58)
--- NOTE | 2018-10-11 11:36 | Progress Note ---
Assessment and Plan - Severe Sepsis with septic shock, off vasopressor support -GPC bacteremia -Acute encephalopathy -Multiple decubitus ulcers -Acute metabolic encephaloapthy -Hypernatremia -Recurrent CAUTI -Lactic acidosis -Acute renal failure- prerenal/vasomotor nephropathy -Monitor renal indices closely -Avoid nephrotoxic agents, adjust all medications for CrCL -Strict intake and output monitoring -Wean supplemental oxygen for O2 sats>90% -VTE prophylaxis -Antibiotics per ID, 6 weeks of therapy for osteomyelitis -Continue tube feedings with aspiration precautions - Increase free water flushes to treat hypernatremia. -Accuchecks with glycemic control. Target glucose of 140-180 mg/dL -Bronchodilators with pulmonary hygiene per RT -Wound care per WOCN -Influenza and pneumonia vaccination per protocol -Discharge planning Subjective Date of service: 10/11/18 Principal diagnosis: Septic shock; Ac encephalopathy; Multiple decubitus ulcers; Ac renal failur Interval history: Patient is seen today for: Severe Sepsis with septic shock; GPC bacteremia; Acute encephalopathy; Multiple decubitus ulcers; Acute metabolic encephaloapthy; Hypernatremia; Recurrent CAUTI; Lactic acidosis; Acute renal failure- prerenal/vasomotor nephropathy Seen and examined at bedside; 24hour events reviewed; nursing and respiratory care staff consulted; no adverse overnight events reported to me; resting peacefully in bed; no N/V/F/C; no gross bleeding,awake and alert Objective Vital Signs - 12hr 10/10/18 10/11/18 10/11/18 23:59 00:00 00:54 Temperature 99.9 F H Pulse Rate 97 H Respiratory 20 20 Rate Blood Pressure 144/76 Blood Pressure [Left] O2 Sat by Pulse 98 Oximetry 10/11/18 10/11/18 04:22 08:05 Temperature 98.8 F 98.7 F Pulse Rate 98 H 79 Respiratory 22 18 Rate Blood Pressure Blood Pressure 161/76 149/76 [Left] O2 Sat by Pulse 97 99 Oximetry Constitutional: no acute distress, alert, other (elderly looking AAM, normocephalic, atraumatic, contracted) Eyes: non-icteric ENT: oropharynx moist Neck: no lymphadenopathy, no JVD, other (neck stiff andfixed flexion to the right side) Effort: normal Ascultation: Bilateral: clear, diminished breath sounds Percussion: Bilateral: not dull Cardiovascular: regular rate and rhythm, other (S1,S2) Gastrointestinal: normoactive bowel sounds, soft, non-tender, non-distended, other (PEG tube) Integumentary: rash Extremities: no cyanosis, pulses normal, no ischemia or petechiae Neurologic: pupils equal and round, other (tardive dyskinetic movts) Psychiatric: mood appropriate, other CBC and BMP: 10/12/18 04:22 10/12/18 04:22 ABG, PT/INR, D-dimer: ABG POC ABG pH 7.480 (7.35-7.45) H 10/01/18 18:12 POC ABG pO2 64 (80-105) L 10/01/18 18:12 POC ABG HCO3 21.0 (22-26 mml/L) 10/01/18 18:12 POC ABG Total CO2 22 (23-27mmol/L) 10/01/18 18:12 POC ABG O2 Sat 94 10/01/18 18:12 Abnormal lab findings: Abnormal Labs 10/01/18 10/01/18 10/01/18 14:29 14:29 15:13 WBC 18.5 H RBC 2.68 L Hgb 7.3 L Hct 23.1 L MCH 27 L MCHC 31 L RDW 19.3 H Plt Count 522 H Lymph % (Auto) 6.7 L [place] % (Auto) Eos % (Auto) Lymph # [place] # 1.2 H Eos # Seg Neutrophils % 85.0 H Seg Neuts % (Manual) Lymphocytes % (Manual) Seg Neutrophils # 15.7 H Seg Neutrophils # Man Lymphocytes # (Manual) POC ABG pH POC ABG pO2 Sodium 148 H Potassium 3.3 L Chloride Carbon Dioxide BUN 98 H Creatinine 2.0 H Glucose 142 H POC Glucose Lactic Acid Calcium Phosphorus Magnesium AST Alkaline Phosphatase Troponin T 0.361 H* C-Reactive Protein Albumin Cholesterol 36 L LDL Cholesterol Direct 6 L HDL Cholesterol 21 L Urine WBC (Auto) > 182.0 H Urine Creatinine Vancomycin Trough Crossmatch 10/01/18 10/01/18 10/01/18 15:15 15:15 17:03 WBC RBC Hgb Hct MCH MCHC RDW Plt Count Lymph % (Auto) [place] % (Auto) Eos % (Auto) Lymph # [place] # Eos # Seg Neutrophils % Seg Neuts % (Manual) Lymphocytes % (Manual) Seg Neutrophils # Seg Neutrophils # Man Lymphocytes # (Manual) POC ABG pH POC ABG pO2 Sodium 150 H Potassium Chloride Carbon Dioxide BUN 94 H Creatinine 2.1 H Glucose 132 H POC Glucose Lactic Acid 2.60 H* 2.20 H* Calcium 7.8 L Phosphorus Magnesium AST 47 H Alkaline Phosphatase 179 H Troponin T C-Reactive Protein Albumin 2.1 L Cholesterol LDL Cholesterol Direct HDL Cholesterol Urine WBC (Auto) Urine Creatinine Vancomycin Trough Crossmatch 10/01/18 10/01/18 10/01/18 18:12 18:23 18:23 WBC RBC Hgb Hct MCH MCHC RDW Plt Count Lymph % (Auto) [place] % (Auto) Eos % (Auto) Lymph # [place] # Eos # Seg Neutrophils % Seg Neuts % (Manual) Lymphocytes % (Manual) Seg Neutrophils # Seg Neutrophils # Man Lymphocytes # (Manual) POC ABG pH 7.480 H POC ABG pO2 64 L Sodium Potassium Chloride Carbon Dioxide BUN Creatinine Glucose POC Glucose Lactic Acid Calcium Phosphorus Magnesium 3.30 H AST Alkaline Phosphatase Troponin T 0.378 H* C-Reactive Protein Albumin Cholesterol LDL Cholesterol Direct HDL Cholesterol Urine WBC (Auto) Urine Creatinine Vancomycin Trough Crossmatch 10/01/18 10/01/18 10/01/18 18:48 21:20 23:48 WBC RBC Hgb Hct MCH MCHC RDW Plt Count Lymph % (Auto) [place] % (Auto) Eos % (Auto) Lymph # [place] # Eos # Seg Neutrophils % Seg Neuts % (Manual) Lymphocytes % (Manual) Seg Neutrophils # Seg Neutrophils # Man Lymphocytes # (Manual) POC ABG pH POC ABG pO2 Sodium Potassium Chloride Carbon Dioxide BUN Creatinine Glucose POC Glucose Lactic Acid 2.30 H* 2.70 H* Calcium Phosphorus Magnesium AST Alkaline Phosphatase Troponin T 0.336 H* C-Reactive Protein Albumin Cholesterol LDL Cholesterol Direct HDL Cholesterol Urine WBC (Auto) Urine Creatinine Vancomycin Trough Crossmatch 10/01/18 10/02/18 10/02/18 23:48 04:45 04:45 WBC 18.3 H RBC 2.40 L Hgb 6.4 L Hct 20.4 L MCH 27 L MCHC 31 L RDW 19.1 H Plt Count 462 H Lymph % (Auto) [place] % (Auto) Eos % (Auto) Lymph # [place] # Eos # Seg Neutrophils % Seg Neuts % (Manual) 78.0 H Lymphocytes % (Manual) 5.0 L Seg Neutrophils # Seg Neutrophils # Man 14.3 H Lymphocytes # (Manual) 0.9 L POC ABG pH POC ABG pO2 Sodium Potassium Chloride Carbon Dioxide BUN Creatinine Glucose POC Glucose Lactic Acid 2.50 H* Calcium Phosphorus Magnesium AST Alkaline Phosphatase Troponin T C-Reactive Protein Albumin Cholesterol LDL Cholesterol Direct HDL Cholesterol Urine WBC (Auto) Urine Creatinine 74.7 H Vancomycin Trough Crossmatch 10/02/18 10/02/18 10/02/18 04:45 04:45 04:45 WBC RBC Hgb Hct MCH MCHC RDW Plt Count Lymph % (Auto) [place] % (Auto) Eos % (Auto) Lymph # [place] # Eos # Seg Neutrophils % Seg Neuts % (Manual) Lymphocytes % (Manual) Seg Neutrophils # Seg Neutrophils # Man Lymphocytes # (Manual) POC ABG pH POC ABG pO2 Sodium 148 H Potassium 3.1 L Chloride 108.6 H Carbon Dioxide 21 L BUN 89 H Creatinine 1.8 H Glucose POC Glucose Lactic Acid 2.10 H* Calcium 8.3 L Phosphorus 5.00 H Magnesium AST Alkaline Phosphatase 161 H Troponin T C-Reactive Protein Albumin 1.7 L Cholesterol LDL Cholesterol Direct HDL Cholesterol Urine WBC (Auto) Urine Creatinine Vancomycin Trough Crossmatch 10/02/18 10/02/18 10/03/18 09:46 11:47 00:03 WBC RBC Hgb Hct MCH MCHC RDW Plt Count Lymph % (Auto) [place] % (Auto) Eos % (Auto) Lymph # [place] # Eos # Seg Neutrophils % Seg Neuts % (Manual) Lymphocytes % (Manual) Seg Neutrophils # Seg Neutrophils # Man Lymphocytes # (Manual) POC ABG pH POC ABG pO2 Sodium Potassium Chloride Carbon Dioxide BUN Creatinine Glucose POC Glucose 112 H 106 H Lactic Acid Calcium Phosphorus Magnesium AST Alkaline Phosphatase Troponin T C-Reactive Protein Albumin Cholesterol LDL Cholesterol Direct HDL Cholesterol Urine WBC (Auto) Urine Creatinine Vancomycin Trough Crossmatch See Detail 10/03/18 10/03/18 10/03/18 06:06 06:45 06:45 WBC 17.3 H RBC 2.81 L Hgb 7.6 L Hct 24.1 L MCH 27 L MCHC 31 L RDW 18.4 H Plt Count 473 H Lymph % (Auto) 5.2 L [place] % (Auto) Eos % (Auto) 4.6 H Lymph # 0.9 L [place] # Eos # 0.8 H Seg Neutrophils % 85.7 H Seg Neuts % (Manual) Lymphocytes % (Manual) Seg Neutrophils # 14.8 H Seg Neutrophils # Man Lymphocytes # (Manual) POC ABG pH POC ABG pO2 Sodium 148 H Potassium Chloride 112.1 H Carbon Dioxide 21 L BUN 79 H Creatinine 1.7 H Glucose 116 H POC Glucose 130 H Lactic Acid Calcium 7.9 L Phosphorus Magnesium AST Alkaline Phosphatase Troponin T C-Reactive Protein Albumin Cholesterol LDL Cholesterol Direct HDL Cholesterol Urine WBC (Auto) Urine Creatinine Vancomycin Trough Crossmatch 10/03/18 10/03/18 10/03/18 11:50 17:42 23:20 WBC RBC Hgb Hct MCH MCHC RDW Plt Count Lymph % (Auto) [place] % (Auto) Eos % (Auto) Lymph # [place] # Eos # Seg Neutrophils % Seg Neuts % (Manual) Lymphocytes % (Manual) Seg Neutrophils # Seg Neutrophils # Man Lymphocytes # (Manual) POC ABG pH POC ABG pO2 Sodium Potassium Chloride Carbon Dioxide BUN Creatinine Glucose POC Glucose 126 H 118 H 106 H Lactic Acid Calcium Phosphorus Magnesium AST Alkaline Phosphatase Troponin T C-Reactive Protein Albumin Cholesterol LDL Cholesterol Direct HDL Cholesterol Urine WBC (Auto) Urine Creatinine Vancomycin Trough Crossmatch 10/04/18 10/04/18 10/04/18 05:22 07:00 07:00 WBC 14.8 H RBC 2.38 L Hgb 6.4 L Hct 20.5 L MCH 27 L MCHC 31 L RDW 18.2 H Plt Count Lymph % (Auto) 5.3 L [place] % (Auto) Eos % (Auto) 9.5 H Lymph # 0.8 L [place] # Eos # 1.4 H Seg Neutrophils % 81.2 H Seg Neuts % (Manual) Lymphocytes % (Manual) Seg Neutrophils # 12.0 H Seg Neutrophils # Man Lymphocytes # (Manual) POC ABG pH POC ABG pO2 Sodium 148 H Potassium Chloride 112.0 H Carbon Dioxide BUN 73 H Creatinine Glucose 105 H POC Glucose 115 H Lactic Acid Calcium 8.1 L Phosphorus Magnesium AST Alkaline Phosphatase Troponin T C-Reactive Protein Albumin 1.5 L Cholesterol LDL Cholesterol Direct HDL Cholesterol Urine WBC (Auto) Urine Creatinine Vancomycin Trough Crossmatch 10/04/18 10/04/18 10/05/18 12:35 18:28 04:20 WBC 14.1 H RBC 2.94 L Hgb 8.2 L Hct 25.2 L MCH MCHC RDW 17.9 H Plt Count Lymph % (Auto) 6.6 L [place] % (Auto) Eos % (Auto) 6.4 H Lymph # 0.9 L [place] # Eos # 0.9 H Seg Neutrophils % 82.7 H Seg Neuts % (Manual) Lymphocytes % (Manual) Seg Neutrophils # 11.6 H Seg Neutrophils # Man Lymphocytes # (Manual) POC ABG pH POC ABG pO2 Sodium Potassium Chloride Carbon Dioxide BUN Creatinine Glucose POC Glucose 109 H 109 H Lactic Acid Calcium Phosphorus Magnesium AST Alkaline Phosphatase Troponin T C-Reactive Protein Albumin Cholesterol LDL Cholesterol Direct HDL Cholesterol Urine WBC (Auto) Urine Creatinine Vancomycin Trough Crossmatch 10/05/18 10/05/18 10/05/18 04:20 11:45 17:32 WBC RBC Hgb Hct MCH MCHC RDW Plt Count Lymph % (Auto) [place] % (Auto) Eos % (Auto) Lymph # [place] # Eos # Seg Neutrophils % Seg Neuts % (Manual) Lymphocytes % (Manual) Seg Neutrophils # Seg Neutrophils # Man Lymphocytes # (Manual) POC ABG pH POC ABG pO2 Sodium Potassium Chloride 110.0 H Carbon Dioxide 21 L BUN 64 H Creatinine Glucose POC Glucose 118 H 113 H Lactic Acid Calcium 8.3 L Phosphorus Magnesium AST Alkaline Phosphatase Troponin T C-Reactive Protein Albumin Cholesterol LDL Cholesterol Direct HDL Cholesterol Urine WBC (Auto) Urine Creatinine Vancomycin Trough Crossmatch 10/06/18 10/06/18 10/06/18 05:15 05:15 05:35 WBC 12.3 H RBC 2.77 L Hgb 7.6 L Hct 24.1 L MCH MCHC RDW 18.1 H Plt Count Lymph % (Auto) 4.9 L [place] % (Auto) Eos % (Auto) 7.3 H Lymph # 0.6 L [place] # Eos # 0.9 H Seg Neutrophils % 81.1 H Seg Neuts % (Manual) Lymphocytes % (Manual) Seg Neutrophils # 10.0 H Seg Neutrophils # Man Lymphocytes # (Manual) POC ABG pH POC ABG pO2 Sodium 146 H Potassium Chloride 112.1 H Carbon Dioxide BUN 57 H Creatinine Glucose 120 H POC Glucose 115 H Lactic Acid Calcium Phosphorus Magnesium AST Alkaline Phosphatase Troponin T C-Reactive Protein Albumin Cholesterol LDL Cholesterol Direct HDL Cholesterol Urine WBC (Auto) Urine Creatinine Vancomycin Trough Crossmatch 10/06/18 10/06/18 10/06/18 12:31 18:44 Unknown WBC RBC Hgb Hct MCH MCHC RDW Plt Count Lymph % (Auto) [place] % (Auto) Eos % (Auto) Lymph # [place] # Eos # Seg Neutrophils % Seg Neuts % (Manual) Lymphocytes % (Manual) Seg Neutrophils # Seg Neutrophils # Man Lymphocytes # (Manual) POC ABG pH POC ABG pO2 Sodium Potassium Chloride Carbon Dioxide BUN Creatinine Glucose POC Glucose 150 H 125 H Lactic Acid Calcium Phosphorus Magnesium AST Alkaline Phosphatase Troponin T C-Reactive Protein Albumin Cholesterol LDL Cholesterol Direct HDL Cholesterol Urine WBC (Auto) Urine Creatinine Vancomycin Trough 23.5 H Crossmatch 10/07/18 10/07/18 10/07/18 05:06 05:06 08:34 WBC RBC Hgb 8.2 L Hct 25.8 L MCH MCHC RDW Plt Count Lymph % (Auto) [place] % (Auto) Eos % (Auto) Lymph # [place] # Eos # Seg Neutrophils % Seg Neuts % (Manual) Lymphocytes % (Manual) Seg Neutrophils # Seg Neutrophils # Man Lymphocytes # (Manual) POC ABG pH POC ABG pO2 Sodium Potassium Chloride 112.2 H Carbon Dioxide 21 L BUN 43 H Creatinine Glucose POC Glucose Lactic Acid Calcium 8.3 L Phosphorus Magnesium AST Alkaline Phosphatase Troponin T C-Reactive Protein Albumin Cholesterol LDL Cholesterol Direct HDL Cholesterol Urine WBC (Auto) Urine Creatinine Vancomycin Trough 23.0 H Crossmatch 10/08/18 10/08/18 10/08/18 05:07 05:07 11:09 WBC RBC 2.86 L Hgb 8.0 L Hct 24.5 L MCH MCHC RDW 18.7 H Plt Count Lymph % (Auto) 7.8 L [place] % (Auto) 8.2 H Eos % (Auto) 5.9 H Lymph # 0.8 L [place] # 0.9 H Eos # 0.6 H Seg Neutrophils % 77.8 H Seg Neuts % (Manual) Lymphocytes % (Manual) Seg Neutrophils # 8.2 H Seg Neutrophils # Man Lymphocytes # (Manual) POC ABG pH POC ABG pO2 Sodium Potassium 5.1 H Chloride 111.8 H Carbon Dioxide BUN 37 H Creatinine Glucose 101 H POC Glucose Lactic Acid Calcium 8.3 L Phosphorus Magnesium 2.50 H AST Alkaline Phosphatase Troponin T C-Reactive Protein 11.40 H Albumin Cholesterol LDL Cholesterol Direct HDL Cholesterol Urine WBC (Auto) Urine Creatinine Vancomycin Trough Crossmatch 10/09/18 10/10/18 10/10/18 05:48 09:02 09:02 WBC 13.6 H RBC 2.80 L Hgb 7.5 L Hct 23.9 L MCH 27 L MCHC 31 L RDW 18.9 H Plt Count Lymph % (Auto) 5.7 L [place] % (Auto) 8.5 H Eos % (Auto) Lymph # 0.8 L [place] # 1.1 H Eos # Seg Neutrophils % 83.9 H Seg Neuts % (Manual) Lymphocytes % (Manual) Seg Neutrophils # 11.4 H Seg Neutrophils # Man Lymphocytes # (Manual) POC ABG pH POC ABG pO2 Sodium Potassium 5.2 H 5.6 H Chloride 112.9 H 111.7 H Carbon Dioxide 21 L BUN 34 H 32 H Creatinine 0.7 L Glucose 109 H POC Glucose Lactic Acid Calcium Phosphorus Magnesium AST Alkaline Phosphatase Troponin T C-Reactive Protein Albumin Cholesterol LDL Cholesterol Direct HDL Cholesterol Urine WBC (Auto) Urine Creatinine Vancomycin Trough Crossmatch 10/11/18 10/11/18 10/11/18 04:41 04:41 09:09 WBC 11.4 H RBC 2.52 L Hgb 6.9 L Hct 22.0 L MCH 27 L MCHC 31 L RDW 19.0 H Plt Count Lymph % (Auto) [place] % (Auto) Eos % (Auto) Lymph # [place] # Eos # Seg Neutrophils % Seg Neuts % (Manual) Lymphocytes % (Manual) Seg Neutrophils # Seg Neutrophils # Man Lymphocytes # (Manual) POC ABG pH POC ABG pO2 Sodium 146 H Potassium Chloride 113.0 H Carbon Dioxide BUN 30 H Creatinine Glucose POC Glucose Lactic Acid Calcium 8.2 L Phosphorus Magnesium AST Alkaline Phosphatase Troponin T C-Reactive Protein Albumin Cholesterol LDL Cholesterol Direct HDL Cholesterol Urine WBC (Auto) Urine Creatinine Vancomycin Trough Crossmatch See Detail Allied health notes reviewed: nursing
--- NOTE | 2018-10-11 11:58 | Progress Note ---
Assessment and Plan Assessment and plan: Severe sepsis with shock, POA due to bacteremia, UTI and RUL PNA continue Sepsis Protocol: IV antibiotic therapy, IVF resuscitation therapy, MRSA on Blood cultures, s/p IV pressors , ID consulted Per ID: - Continue vancomycin now for MRSA bacteremia. So far no clear source for MRSA bacteremia but suspected possible infected decubitus ulcer - treated with meropenem for 5 days to cover UTI as urine culture was not sent and he has h/o MDR GNRs MRSA bacteremia - possible source infected decubitus ulcer - cont vanc, ID following, 2d echo showed no vegetation Decubitus ulcer, multiple with different stages - cont wound care, abx per ID - Could be the source for bacteremia, ID ordered for WBC scan but could not be done because of his chronic contracture/anatomical position Anemia, s/p 2 units blood transfusion, likely AOCD and severe sepsis - stool for occult blood negative, cont to monitor hgb 6.9. Transfuse 1 unit PRBC Hyperkalemia. Give kayexalate, Insulin, Dextrose, repeat in am MÓNICA with vasomotor nephropathy renal function stable with IVF resuscitation therapy, monitor uop q shift, nephrology consulted in ED. Right upper lobe Pneumonia, suspect aspiration Treated with IV antibiotic therapy, supplemental oxygen, pulse oximetry, Elevated troponin Likely due to sepsis with low blood pressure and renal failure Monitor with Serial cardiac enzymes, Cardiology consulted in ED, No EKG changes, supportive care, UTI (lower urinary tract infection) Treated with IV antibiotic therapy, IV fluids Acute hypoxic Respiratory failure Likely due to underlying pneumonia Continue to provide Supplemental oxygen, nebulizer therapy, NIPPV as clinically indicated, pulse oximetry, Moderate to severe protein calorie malnutrition - BMI 17.8, albumin 1.7 - consulted dietary, continue tube feeding for now hypernatremia, on hypotonic saline Hypokalemia/hyperkalemia, - repleted for hypokalemia now potassium level 5.2 - Given 1 dose of Kayexalate will follow response Hypertension, placed on clonidine patch DVT prophylaxis SCD to BLE while in bed, prophylactic heparin Disposition: wait for final ID recommendation for d/c abx coverage History Interval history: patient with MRSA bacteremia Hospitalist Physical - Physical exam Narrative exam: Gen: Not in acute distress, lying in bed, HEENT: Normocephalic, atraumatic Neck: supple, no JVD Heart: S1 and S2 reg, no murmurs, rubs or gallop Lungs: Clear, no crackles, no wheeze Abd: soft, non tender, non distended, normal BS Ext: No edema, no clubbing, no cyanosis, Neuro: Lethargic, does not follow commands - Constitutional Vitals: Temp Pulse Resp BP Pulse Ox 98.7 F 79 18 149/76 99 10/11/18 08:05 10/11/18 08:05 10/11/18 08:05 10/11/18 08:05 10/11/18 08:05 General appearance: Present: no acute distress Results - Labs CBC & Chem 7: 10/12/18 04:22 10/12/18 04:22 Labs: Laboratory Last Values WBC 11.4 K/mm3 (4.5-11.0) H 10/11/18 04:41 RBC 2.52 M/mm3 (3.65-5.03) L 10/11/18 04:41 Hgb 6.9 gm/dl (11.8-15.2) L 10/11/18 04:41 Hct 22.0 % (35.5-45.6) L 10/11/18 04:41 MCV 88 fl (84-94) 10/11/18 04:41 MCH 27 pg (28-32) L 10/11/18 04:41 MCHC 31 % (32-34) L 10/11/18 04:41 RDW 19.0 % (13.2-15.2) H 10/11/18 04:41 Plt Count 364 K/mm3 (140-440) 10/11/18 04:41 Lymph % (Auto) 5.7 % (13.4-35.0) L 10/10/18 09:02 [place] % (Auto) 8.5 % (0.0-7.3) H 10/10/18 09:02 Eos % (Auto) 1.6 % (0.0-4.3) 10/10/18 09:02 Baso % (Auto) 0.3 % (0.0-1.8) 10/10/18 09:02 Lymph # 0.8 K/mm3 (1.2-5.4) L 10/10/18 09:02 [place] # 1.1 K/mm3 (0.0-0.8) H 10/10/18 09:02 Eos # 0.2 K/mm3 (0.0-0.4) 10/10/18 09:02 Baso # 0.0 K/mm3 (0.0-0.1) 10/10/18 09:02 Add Manual Diff Complete 10/02/18 04:45 Total Counted 100 10/02/18 04:45 Seg Neutrophils % 83.9 % (40.0-70.0) H 10/10/18 09:02 Seg Neuts % (Manual) 78.0 % (40.0-70.0) H 10/02/18 04:45 14.0 % 10/02/18 04:45 5.0 % (13.4-35.0) L 10/02/18 04:45 Reactive Lymphs % (Man) 0 % 10/02/18 04:45 2.0 % (0.0-7.3) 10/02/18 04:45 1.0 % (0.0-4.3) 10/02/18 04:45 0 % (0.0-1.8) 10/02/18 04:45 0 % 10/02/18 04:45 0 % 10/02/18 04:45 0 % 10/02/18 04:45 0 % 10/02/18 04:45 Nucleated RBC % Not Reportable 10/02/18 04:45 Seg Neutrophils # 11.4 K/mm3 (1.8-7.7) H 10/10/18 09:02 Seg Neutrophils # Man 14.3 K/mm3 (1.8-7.7) H 10/02/18 04:45 Band Neutrophils # 2.6 K/mm3 10/02/18 04:45 0.9 K/mm3 (1.2-5.4) L 10/02/18 04:45 Abs React Lymphs (Man) 0.0 K/mm3 10/02/18 04:45 0.4 K/mm3 (0.0-0.8) 10/02/18 04:45 0.2 K/mm3 (0.0-0.4) 10/02/18 04:45 0.0 K/mm3 (0.0-0.1) 10/02/18 04:45 0.0 K/mm3 10/02/18 04:45 0.0 K/mm3 10/02/18 04:45 0.0 K/mm3 10/02/18 04:45 Blast Cells # 0.0 K/mm3 10/02/18 04:45 WBC Morphology Not Reportable 10/02/18 04:45 WBC Morphology TNR 10/02/18 04:45 Hypersegmented Neuts Not Reportable 10/02/18 04:45 Hyposegmented Neuts Not Reportable 10/02/18 04:45 Hypogranular Neuts Not Reportable 10/02/18 04:45 Not Reportable 10/02/18 04:45 Not Reportable 10/02/18 04:45 Not Reportable 10/02/18 04:45 Not Reportable 10/02/18 04:45 Not Reportable 10/02/18 04:45 Not Reportable 10/02/18 04:45 Consistent w auto 10/02/18 04:45 Not Reportable 10/02/18 04:45 Plt Clumps, EDTA Not Reportable 10/02/18 04:45 Not Reportable 10/02/18 04:45 Not Reportable 10/02/18 04:45 Not Reportable 10/02/18 04:45 Plt Morphology Comment Not Reportable 10/02/18 04:45 RBC Morphology Not Reportable 10/02/18 04:45 Dimorphic RBCs Not Reportable 10/02/18 04:45 Few 10/02/18 04:45 Not Reportable 10/02/18 04:45 Not Reportable 10/02/18 04:45 1+ 10/02/18 04:45 Not Reportable 10/02/18 04:45 2+ 10/02/18 04:45 Not Reportable 10/02/18 04:45 Not Reportable 10/02/18 04:45 Not Reportable 10/02/18 04:45 Not Reportable 10/02/18 04:45 Not Reportable 10/02/18 04:45 Not Reportable 10/02/18 04:45 Not Reportable 10/02/18 04:45 Not Reportable 10/02/18 04:45 Not Reportable 10/02/18 04:45 Not Reportable 10/02/18 04:45 Not Reportable 10/02/18 04:45 Not Reportable 10/02/18 04:45 Not Reportable 10/02/18 04:45 Acanthocytes (Spur) Not Reportable 10/02/18 04:45 Rouleaux Not Reportable 10/02/18 04:45 Not Reportable 10/02/18 04:45 Not Reportable 10/02/18 04:45 Not Reportable 10/02/18 04:45 Not Reportable 10/02/18 04:45 Hem Pathologist Commnt No 10/02/18 04:45 POC ABG pH 7.480 (7.35-7.45) H 10/01/18 18:12 POC ABG pO2 64 (80-105) L 10/01/18 18:12 POC ABG HCO3 21.0 (22-26 mml/L) 10/01/18 18:12 POC ABG Total CO2 22 (23-27mmol/L) 10/01/18 18:12 POC ABG O2 Sat 94 10/01/18 18:12 POC ABG Base Excess -3 ((-2) - (+3)mmol/L) 10/01/18 18:12 32 % 10/01/18 18:12 Sodium 146 mmol/L (137-145) H 10/11/18 04:41 Potassium 4.7 mmol/L (3.6-5.0) 10/11/18 04:41 Chloride 113.0 mmol/L (98-107) H 10/11/18 04:41 Carbon Dioxide 23 mmol/L (22-30) 10/11/18 04:41 15 mmol/L 10/11/18 04:41 BUN 30 mg/dL (9-20) H 10/11/18 04:41 0.8 mg/dL (0.8-1.5) 10/11/18 04:41 Estimated GFR > 60 ml/min 10/11/18 04:41 38 % 10/11/18 04:41 Glucose 93 mg/dL (75-100) 10/11/18 04:41 POC Glucose 99 (70-105) 10/07/18 15:25 Lactic Acid 1.70 mmol/L (0.7-2.0) 10/03/18 22:45 Calcium 8.2 mg/dL (8.4-10.2) L 10/11/18 04:41 Phosphorus 3.80 mg/dL (2.5-4.5) 10/08/18 05:07 Magnesium 2.50 mg/dL (1.7-2.3) H 10/08/18 05:07 < 0.20 mg/dL (0.1-1.2) 10/04/18 07:00 < 0.2 mg/dL (0-0.2) 10/04/18 07:00 0.0 mg/dL 10/04/18 07:00 AST 25 units/L (5-40) 10/04/18 07:00 ALT 15 units/L (7-56) 10/04/18 07:00 124 units/L (35-129) 10/04/18 07:00 0.336 ng/mL (0.00-0.029) H* 10/01/18 23:48 11.40 mg/dL (0.00-1.30) H 10/08/18 05:07 6.5 g/dL (6.3-8.2) 10/04/18 07:00 1.5 g/dL (3.9-5) L 10/04/18 07:00 0.3 % 10/04/18 07:00 Triglycerides 111 mg/dL (2-149) 10/01/18 14:29 Cholesterol 36 mg/dL (50-199) L 10/01/18 14:29 6 mg/dL (50-130) L 10/01/18 14:29 21 mg/dL (40-59) L 10/01/18 14:29 1.71 % 10/01/18 14:29 Free PSA See scanned result 10/01/18 17:53 % Free PSA Calc See scanned result 10/01/18 17:53 Total PSA See scanned result 10/01/18 17:53 TSH 0.870 mlU/mL (0.270-4.200) 10/01/18 18:23 Free T4 1.05 ng/dL (0.76-1.46) 10/01/18 18:23 [place] (Yellow) 10/01/18 15:13 Cloudy (Clear) 10/01/18 15:13 5.0 (5.0-7.0) 10/01/18 15:13 Ur Specific [place] 1.023 (1.003-1.030) 10/01/18 15:13 100 mg/dl mg/dL (Negative) 10/01/18 15:13 Neg mg/dL (Negative) 10/01/18 15:13 Tr mg/dL (Negative) 10/01/18 15:13 Neg (Negative) 10/01/18 15:13 Neg (Negative) 10/01/18 15:13 Neg (Negative) 10/01/18 15:13 < 2.0 mg/dL (<2.0) 10/01/18 15:13 Ur Leukocyte Esterase Lg (Negative) 10/01/18 15:13 > 182.0 /HPF (0.0-6.0) H 10/01/18 15:13 12.0 /HPF (0.0-6.0) 10/01/18 15:13 4+ /HPF (Negative) 10/01/18 15:13 3+ /HPF 10/01/18 15:13 74.7 mg/dL (0.1-20.0) H 10/02/18 04:45 21 mmol/L 10/02/18 04:45 Vancomycin Trough 23.0 ug/mL (5.0-20.0) H 10/07/18 08:34 Blood Type O POSITIVE 10/11/18 09:09 Antibody Screen Negative 10/11/18 09:09 Crossmatch See Detail 10/11/18 09:09 Active Medications - Current Medications Current Medications: Generic Name Dose Route Start Last Admin Trade Name Freq PRN Reason Stop Dose Admin Acetaminophen 650 mg 10/01/18 15:32 10/11/18 00:54 Tylenol FEEDTUBE 650 mg Q6H PRN Administration Pain, Moderate (4-6) Albuterol 2.5 mg 10/01/18 17:40 10/04/18 21:02 Proventil IH 2.5 mg Q3HRT PRN Administration Shortness Of Breath Lipase/Protease/Amylase 1 each 10/04/18 14:58 Pancreaze 10,500 Unit FEEDTUBE PRN PRN For Clogged Feeding Tube Ascorbic Acid 500 mg 10/04/18 10:00 10/11/18 10:58 Vitamin C FEEDTUBE 500 mg BID NORA Administration Atorvastatin Calcium 40 mg 10/01/18 22:00 10/10/18 22:04 Lipitor FEEDTUBE 40 mg QHS NORA Administration Carvedilol 3.125 mg 10/09/18 16:00 10/11/18 10:57 Coreg PO 3.125 mg BID NORA Administration Clonidine HCl 0.2 mg 10/08/18 10:00 10/08/18 09:52 Catapres-Tts Patch TD 0.2 mg Tu NORA Administration Famotidine 20 mg 10/03/18 12:00 10/11/18 10:58 Pepcid PO 20 mg DAILY NORA Administration Heparin Sodium (Porcine) 5,000 unit 10/01/18 22:00 10/11/18 10:59 Heparin SUB-Q 5,000 unit Q12HR NORA Administration Hydralazine HCl 10 mg 10/07/18 15:12 10/07/18 18:00 Apresoline IV 10 mg Q4HR PRN Administration Blood Pressure Hydrochlorothiazide 25 mg 10/11/18 09:00 10/11/18 10:58 Hctz PO 25 mg QDAY NORA Administration Vancomycin HCl 1 gm in 250 mls @ 167.007 mls/hr 10/08/18 10:00 10/10/18 11:42 Vancomycin/Ns 1 Gm/250 Ml IV 167.007 mls/hr Q48HR NORA Administration Levetiracetam 500 mg 10/01/18 22:00 10/11/18 10:57 Keppra PO 500 mg BID NORA Administration Multivitamins 1 each 10/02/18 10:00 10/11/18 10:57 Theragran Tab PO 1 each DAILY NORA Administration Oxycodone/Acetaminophen 1 tab 10/02/18 20:16 10/08/18 23:23 Percocet 5/325 PO 1 tab Q4H PRN Administration Pain, Moderate (4-6) Simple Syrup 15 ml 10/02/18 10:35 Simple Syrup FEEDTUBE PRN PRN Hypoglycemia Simple Syrup 30 ml 10/02/18 10:35 Simple Syrup FEEDTUBE PRN PRN Hypoglycemia Sodium Bicarbonate 325 mg 10/02/18 10:35 Sodium Bicarbonate FEEDTUBE PRN PRN For Clogged Feeding Tube Sodium Chloride 10 ml 10/01/18 22:00 10/11/18 10:25 Sodium Chloride Flush Syringe 10 Ml IV 10 ml BID NORA Administration Sodium Chloride 10 ml 10/01/18 17:40 10/05/18 21:30 Sodium Chloride Flush Syringe 10 Ml IV 10 ml PRN PRN Administration LINE FLUSH Zinc Sulfate 220 mg 10/02/18 10:00 10/10/18 10:40 Zinc Sulfate PO 220 mg QDAY NORA Administration Nutrition/Malnutrition Assess - Dietary Evaluation Nutrition/Malnutrition Findings: Nutrition Notes Start: 10/02/18 10:21 Freq: Status: Active Protocol: Document 10/07/18 15:09 RM (Rec: 10/07/18 15:10 RM [id number]) Nutrition Notes Initial or Follow up Reassessment Current Diagnosis Acute Kidney Injury,COPD, Decubitus(Pressure Ulcer), Diabetes,Sepsis,Hypertension, Heart Failure,Stroke Other Pertinent Diagnosis UTI, pneu, dementia, multiple PU Current Diet Glucerna 1.2 at 60 ml/hr Labs/Tests Na 144 Pertinent Medications Reviewed Height 5 ft 8 in Weight 68 kg Dexter Body Weight (kg) 70.00 BMI 22.8 Weight change and time frame Current wt obtained from [facility]. Wt gain possibly d/t fluid change. Subjective/Other Information Observed Glucerna 1.2 infusing at 60 ml/hr. Per nurse pt is tolerating TF. Percent of energy/protein needs met: 94%/100% Burn Absent Trauma Absent #1 Nutrition Diagnosis Malnutrition Diagnosis Progress(for reassessment Continues documentation) Is patient on ventilator? No Is Patient Ambulatory and/or Out of Bed No REE-([facility]-confined to bed) 1715.112 Kcal/Kg value to use for calculation 27 Approximate Energy Requirements Using 1836 kcal/Kg Calculation Used for Recommendations Kcal/kg Additional Notes Protein needs are 64-140g (1.2 -2g/kg) Fluid needs are 1ml/kcal Nutrition Intervention Nutrition Support: Glucerna 1.2 at 60ml/hr Flush with 150 ml q4h. Kcal 1,728 Protein (gm) 86 Fluid (mL) 1,163 Goal #1 Continue to meet at least 80% of kcal and protein needs Goal #2 Wound healing Anticipated Discharge Needs: Unable to determine at this time Follow-Up By: 10/15/18 Additional Comments Follow for TF tolerance
--- NOTE | 2018-10-11 13:15 | Progress Note ---
Assessment and Plan Cultures: Blood culture 10/01/2018 MRSA 2 of 4. Blood culture 10/03/2018 no growth Assessment: 67 y/o male with hsitory of HTN, CVA, Obstructive Uropathy, Contracture, Multiple Decubitus Ulcers, MD, DM, OA, Seizure Disorder, COPD, Dementia, Debility, BPH, well known to ID due to multiple admissions from ducubitus ulcers infections, resident of snf, admitted on due to decreased respo nsiveness compared to baseline and hypotension SBP in 60's: 1) Severe Sepsis with septic shock: new isolated fever. Etiology most likely Staph bacteremia. 2) MRSA bacteremia: source likely multiple decubitus or UTI. Blood culture 10/01/2018 GPC in clusters 2 of 4. TTE no negative. 3) Recent septic shock due to polymicrobial bacteremia ESBL E coli, MDR Proteus, Strep and E faecalis on 07/29/2018 probably from multiple infected decubitus ulcers and less likely UTI. Repeat blood cultures 07/31/2018 showed same MDR E coli 1 of 4 bottles then 08/06/2018 blood cultures showed no growth. Patient did not respond to carbapenem and was placed on vabomere for 14 days. 4) Multiple infected decubitus ulcers: currently active large left trochanteric with bone exposure and sacral with bone exposure. His prognosis has been poor and discussed previously with family hospice indication but they declined. His wounds are not curable considering his contractures, bed bound status and poor nutritional status. There was also suspicion of septic arthritis of left hip from decubitus ulcer. 5) Recurrent CAUTI 6) Acute encephalopathy: resolved. 7) MÓNICA: resolved with high K. 8) Low grade fever: ? Recommendations: - obtain new blood cultures and CXR in light of fever - if blood culture negative in 48h ok to place a PICC line/ will ask vascular for a neck tunneled PICC as it was not able to be placed by PICC team - Continue wound care - Continue vancomycin D10 for MRSA bacteremia. - WBC tagged scan ordered - Unable to perform because of contractions - Anticipate discharge on Vancomycin 1 gm every 48 hours for total 6 weeks ending 11-12-18 - Order placed with case management Will follow. Penny Bernardo MD Infectious Diseases Spotter Driver [facility] ([facility] M [phone] O [phone] Subjective Date of service: 10/11/18 Principal diagnosis: Septic shock; Ac encephalopathy; Multiple decubitus ulcers; Ac renal failur Interval history: Feels ok alert, talking, tmax 100.2 ROS limited confused Objective - Exam Narrative Exam: General appearance: Alert in NAD verbal Eyes: anicteric sclerae, moist conjunctivae; no lid-lag; PERRLA HENT: Atraumatic; oropharynx limited Neck: Trachea midline; supple, no thyromegaly or lymphadenopathy Lungs: scattered rhonchi CV: rrr Abdomen: Soft, non-tender;PEG Extremities: altaf contracted legs, multiple wounds covered Skin: multiple skin tears Psych: no agitated Neuro: alert non verbal no agitated WOUND CARE EVAL LEFT TROCHANTER STAGE 4 PRESSURE INJURY. LARGE AMOUNT OF YELLOW DRAINAGE. NO ODOR. WOUND PROBES TO A DEPTH OF 8CM. 6X6X8. THERE IS BONE EXPOSED. CLEANSED WITH WOUND CLEANSER. PACKED WITH 2 PIECES OF 4X4 ALGINATE. COVERED WITH 4X4 GAUZE, THEN TELFA. STAGE 4 SACRAL PRESSURE INJURY NOTED. PINK GRANULATION TISSUE. MODERATE AMOUNT OF YELLOW DRAINAGE. BONE IS EXPOSED. PERIWOUND SKIN IS INTACT. MEASURES [id number] CLEANSED WITH WOUND CLEANSER. ALGINATE APPLIED. COVERED WITH 4X4 GAUZE, THEN TELFA. - Constitutional Vitals: Vital Signs Temp Pulse Resp BP Pulse Ox 98.7 F 79 18 149/76 99 10/11/18 08:05 10/11/18 08:05 10/11/18 08:05 10/11/18 08:05 10/11/18 08:05 Temperature -Last 24 Hours Temperature 98.7 F Temperature 98.8 F Temperature 99.9 F Temperature 100.2 F Temperature 99.0 F - Labs CBC & Chem 7: 10/11/18 04:41 10/11/18 04:41 Labs: Abnormal lab results 10/11/18 10/11/18 10/11/18 Range/Units 04:41 04:41 09:09 WBC 11.4 H (4.5-11.0) K/mm3 RBC 2.52 L (3.65-5.03) M/mm3 Hgb 6.9 L (11.8-15.2) gm/dl Hct 22.0 L (35.5-45.6) % MCH 27 L (28-32) pg MCHC 31 L (32-34) % RDW 19.0 H (13.2-15.2) % Sodium 146 H (137-145) mmol/L Chloride 113.0 H (98-107) mmol/L BUN 30 H (9-20) mg/dL Calcium 8.2 L (8.4-10.2) mg/dL Crossmatch See Detail
--- NOTE | 2018-10-11 14:16 | XRay Report ---
AP CHEST: HISTORY: New fever Limited exam secondary to contractures. The lungs are grossly clear. No obvious pneumonia or pleural effusion. Borderline to mild cardiomegaly is stable. IMPRESSION: No evidence for infiltrate AP chest
[2018-10-12 00:33] LABS: BUN/Creatinine Ratio 33; Blood Urea Nitrogen 30 mg/dL (9-20); Calcium 8.6 mg/dL (8.4-10.2); Hemolysis Index 1
[2018-10-12 04:54] LABS: Hematocrit 25.5 % (35.5-45.6); Hemoglobin 8.3 gm/dl (11.8-15.2); Mean Corpuscular HGB Conc 33 % (32-34); Mean Corpuscular Volume 86 fl (84-94); Platelet Count 383 K/mm3 (140-440); Red Blood Count 2.98 M/mm3 (3.65-5.03); Red Cell Distribution Width 17.7 % (13.2-15.2)
[2018-10-12 05:17] LABS: BUN/Creatinine Ratio 32; Blood Urea Nitrogen 29 mg/dL (9-20); Calcium 8.2 mg/dL (8.4-10.2); Hemolysis Index 1
[2018-10-12] MEDS ORDERED: DIURIL IV ONE ×2 (08:00)
[2018-10-12] MEDS ORDERED: NACL 0.9% IV ONE (08:00)
--- NOTE | 2018-10-12 09:42 | Progress Note ---
Assessment and Plan - Severe Sepsis with septic shock, off vasopressor support -GPC bacteremia -Acute encephalopathy -Multiple decubitus ulcers -Acute metabolic encephaloapthy -Hypernatremia -Recurrent CAUTI -Lactic acidosis -Acute renal failure- prerenal/vasomotor nephropathy -Monitor renal indices closely -Avoid nephrotoxic agents, adjust all medications for CrCL -Strict intake and output monitoring -Wean supplemental oxygen for O2 sats>90% -VTE prophylaxis -Antibiotics per ID, 6 weeks of therapy for osteomyelitis -Continue tube feedings with aspiration precautions - Increase free water flushes to treat hypernatremia. -Accuchecks with glycemic control. Target glucose of 140-180 mg/dL -Bronchodilators with pulmonary hygiene per RT -Wound care per WOCN -Influenza and pneumonia vaccination per protocol -Discharge planning Subjective Date of service: 10/12/18 Principal diagnosis: Septic shock; Ac encephalopathy; Multiple decubitus ulcers; Ac renal failur Interval history: Patient is seen today for: Severe Sepsis with septic shock; GPC bacteremia; Acute encephalopathy; Multiple decubitus ulcers; Acute metabolic encephaloapthy; Hypernatremia; Recurrent CAUTI; Lactic acidosis; Acute renal failure- prerenal/vasomotor nephropathy Seen and examined at bedside; 24hour events reviewed; nursing and respiratory care staff consulted; no adverse overnight events reported to me; resting peacefully in bed; no N/V/F/C; no gross bleeding, awake and alert Objective Vital Signs - 12hr 10/11/18 10/11/18 10/11/18 22:00 22:32 23:52 Temperature 99.4 F Pulse Rate 108 H 97 H Pulse Rate [ Left Radial] Pulse Rate [ Right Radial] Respiratory 20 20 Rate Blood Pressure 160/67 Blood Pressure [Left] O2 Sat by Pulse 97 Oximetry 10/12/18 10/12/18 10/12/18 05:18 08:11 08:15 Temperature 98.7 F 97.5 F L Pulse Rate 96 H 77 Pulse Rate [ 86 Left Radial] Pulse Rate [ 86 Right Radial] Respiratory 18 20 18 Rate Blood Pressure 159/56 Blood Pressure 152/74 [Left] O2 Sat by Pulse 97 96 100 Oximetry Constitutional: no acute distress, other (elderly looking AAM, normocephalic, atraumatic, contracted) Eyes: non-icteric ENT: oropharynx moist Neck: no lymphadenopathy, no JVD, other (neck stiff , fixed flexion) Effort: normal, other (on 2L NC) Ascultation: Bilateral: diminished breath sounds Percussion: Bilateral: not dull Cardiovascular: regular rate and rhythm, other (S1,S2) Gastrointestinal: normoactive bowel sounds, soft, non-tender, non-distended, other (PEG tube) Integumentary: rash Extremities: no cyanosis, pulses normal, no ischemia or petechiae Neurologic: pupils equal and round Psychiatric: mood appropriate CBC and BMP: 10/12/18 04:22 10/12/18 04:22 ABG, PT/INR, D-dimer: ABG POC ABG pH 7.480 (7.35-7.45) H 10/01/18 18:12 POC ABG pO2 64 (80-105) L 10/01/18 18:12 POC ABG HCO3 21.0 (22-26 mml/L) 10/01/18 18:12 POC ABG Total CO2 22 (23-27mmol/L) 10/01/18 18:12 POC ABG O2 Sat 94 10/01/18 18:12 Abnormal lab findings: Abnormal Labs 10/01/18 10/01/18 10/01/18 14:29 14:29 15:13 WBC 18.5 H RBC 2.68 L Hgb 7.3 L Hct 23.1 L MCH 27 L MCHC 31 L RDW 19.3 H Plt Count 522 H Lymph % (Auto) 6.7 L [place] % (Auto) Eos % (Auto) Lymph # [place] # 1.2 H Eos # Seg Neutrophils % 85.0 H Seg Neuts % (Manual) Lymphocytes % (Manual) Seg Neutrophils # 15.7 H Seg Neutrophils # Man Lymphocytes # (Manual) POC ABG pH POC ABG pO2 Sodium 148 H Potassium 3.3 L Chloride Carbon Dioxide BUN 98 H Creatinine 2.0 H Glucose 142 H POC Glucose Lactic Acid Calcium Phosphorus Magnesium AST Alkaline Phosphatase Troponin T 0.361 H* C-Reactive Protein Albumin Cholesterol 36 L LDL Cholesterol Direct 6 L HDL Cholesterol 21 L Urine WBC (Auto) > 182.0 H Urine Creatinine Vancomycin Trough Crossmatch 10/01/18 10/01/18 10/01/18 15:15 15:15 17:03 WBC RBC Hgb Hct MCH MCHC RDW Plt Count Lymph % (Auto) [place] % (Auto) Eos % (Auto) Lymph # [place] # Eos # Seg Neutrophils % Seg Neuts % (Manual) Lymphocytes % (Manual) Seg Neutrophils # Seg Neutrophils # Man Lymphocytes # (Manual) POC ABG pH POC ABG pO2 Sodium 150 H Potassium Chloride Carbon Dioxide BUN 94 H Creatinine 2.1 H Glucose 132 H POC Glucose Lactic Acid 2.60 H* 2.20 H* Calcium 7.8 L Phosphorus Magnesium AST 47 H Alkaline Phosphatase 179 H Troponin T C-Reactive Protein Albumin 2.1 L Cholesterol LDL Cholesterol Direct HDL Cholesterol Urine WBC (Auto) Urine Creatinine Vancomycin Trough Crossmatch 10/01/18 10/01/18 10/01/18 18:12 18:23 18:23 WBC RBC Hgb Hct MCH MCHC RDW Plt Count Lymph % (Auto) [place] % (Auto) Eos % (Auto) Lymph # [place] # Eos # Seg Neutrophils % Seg Neuts % (Manual) Lymphocytes % (Manual) Seg Neutrophils # Seg Neutrophils # Man Lymphocytes # (Manual) POC ABG pH 7.480 H POC ABG pO2 64 L Sodium Potassium Chloride Carbon Dioxide BUN Creatinine Glucose POC Glucose Lactic Acid Calcium Phosphorus Magnesium 3.30 H AST Alkaline Phosphatase Troponin T 0.378 H* C-Reactive Protein Albumin Cholesterol LDL Cholesterol Direct HDL Cholesterol Urine WBC (Auto) Urine Creatinine Vancomycin Trough Crossmatch 10/01/18 10/01/18 10/01/18 18:48 21:20 23:48 WBC RBC Hgb Hct MCH MCHC RDW Plt Count Lymph % (Auto) [place] % (Auto) Eos % (Auto) Lymph # [place] # Eos # Seg Neutrophils % Seg Neuts % (Manual) Lymphocytes % (Manual) Seg Neutrophils # Seg Neutrophils # Man Lymphocytes # (Manual) POC ABG pH POC ABG pO2 Sodium Potassium Chloride Carbon Dioxide BUN Creatinine Glucose POC Glucose Lactic Acid 2.30 H* 2.70 H* Calcium Phosphorus Magnesium AST Alkaline Phosphatase Troponin T 0.336 H* C-Reactive Protein Albumin Cholesterol LDL Cholesterol Direct HDL Cholesterol Urine WBC (Auto) Urine Creatinine Vancomycin Trough Crossmatch 10/01/18 10/02/18 10/02/18 23:48 04:45 04:45 WBC 18.3 H RBC 2.40 L Hgb 6.4 L Hct 20.4 L MCH 27 L MCHC 31 L RDW 19.1 H Plt Count 462 H Lymph % (Auto) [place] % (Auto) Eos % (Auto) Lymph # [place] # Eos # Seg Neutrophils % Seg Neuts % (Manual) 78.0 H Lymphocytes % (Manual) 5.0 L Seg Neutrophils # Seg Neutrophils # Man 14.3 H Lymphocytes # (Manual) 0.9 L POC ABG pH POC ABG pO2 Sodium Potassium Chloride Carbon Dioxide BUN Creatinine Glucose POC Glucose Lactic Acid 2.50 H* Calcium Phosphorus Magnesium AST Alkaline Phosphatase Troponin T C-Reactive Protein Albumin Cholesterol LDL Cholesterol Direct HDL Cholesterol Urine WBC (Auto) Urine Creatinine 74.7 H Vancomycin Trough Crossmatch 10/02/18 10/02/18 10/02/18 04:45 04:45 04:45 WBC RBC Hgb Hct MCH MCHC RDW Plt Count Lymph % (Auto) [place] % (Auto) Eos % (Auto) Lymph # [place] # Eos # Seg Neutrophils % Seg Neuts % (Manual) Lymphocytes % (Manual) Seg Neutrophils # Seg Neutrophils # Man Lymphocytes # (Manual) POC ABG pH POC ABG pO2 Sodium 148 H Potassium 3.1 L Chloride 108.6 H Carbon Dioxide 21 L BUN 89 H Creatinine 1.8 H Glucose POC Glucose Lactic Acid 2.10 H* Calcium 8.3 L Phosphorus 5.00 H Magnesium AST Alkaline Phosphatase 161 H Troponin T C-Reactive Protein Albumin 1.7 L Cholesterol LDL Cholesterol Direct HDL Cholesterol Urine WBC (Auto) Urine Creatinine Vancomycin Trough Crossmatch 10/02/18 10/02/18 10/03/18 09:46 11:47 00:03 WBC RBC Hgb Hct MCH MCHC RDW Plt Count Lymph % (Auto) [place] % (Auto) Eos % (Auto) Lymph # [place] # Eos # Seg Neutrophils % Seg Neuts % (Manual) Lymphocytes % (Manual) Seg Neutrophils # Seg Neutrophils # Man Lymphocytes # (Manual) POC ABG pH POC ABG pO2 Sodium Potassium Chloride Carbon Dioxide BUN Creatinine Glucose POC Glucose 112 H 106 H Lactic Acid Calcium Phosphorus Magnesium AST Alkaline Phosphatase Troponin T C-Reactive Protein Albumin Cholesterol LDL Cholesterol Direct HDL Cholesterol Urine WBC (Auto) Urine Creatinine Vancomycin Trough Crossmatch See Detail 10/03/18 10/03/18 10/03/18 06:06 06:45 06:45 WBC 17.3 H RBC 2.81 L Hgb 7.6 L Hct 24.1 L MCH 27 L MCHC 31 L RDW 18.4 H Plt Count 473 H Lymph % (Auto) 5.2 L [place] % (Auto) Eos % (Auto) 4.6 H Lymph # 0.9 L [place] # Eos # 0.8 H Seg Neutrophils % 85.7 H Seg Neuts % (Manual) Lymphocytes % (Manual) Seg Neutrophils # 14.8 H Seg Neutrophils # Man Lymphocytes # (Manual) POC ABG pH POC ABG pO2 Sodium 148 H Potassium Chloride 112.1 H Carbon Dioxide 21 L BUN 79 H Creatinine 1.7 H Glucose 116 H POC Glucose 130 H Lactic Acid Calcium 7.9 L Phosphorus Magnesium AST Alkaline Phosphatase Troponin T C-Reactive Protein Albumin Cholesterol LDL Cholesterol Direct HDL Cholesterol Urine WBC (Auto) Urine Creatinine Vancomycin Trough Crossmatch 10/03/18 10/03/18 10/03/18 11:50 17:42 23:20 WBC RBC Hgb Hct MCH MCHC RDW Plt Count Lymph % (Auto) [place] % (Auto) Eos % (Auto) Lymph # [place] # Eos # Seg Neutrophils % Seg Neuts % (Manual) Lymphocytes % (Manual) Seg Neutrophils # Seg Neutrophils # Man Lymphocytes # (Manual) POC ABG pH POC ABG pO2 Sodium Potassium Chloride Carbon Dioxide BUN Creatinine Glucose POC Glucose 126 H 118 H 106 H Lactic Acid Calcium Phosphorus Magnesium AST Alkaline Phosphatase Troponin T C-Reactive Protein Albumin Cholesterol LDL Cholesterol Direct HDL Cholesterol Urine WBC (Auto) Urine Creatinine Vancomycin Trough Crossmatch 10/04/18 10/04/18 10/04/18 05:22 07:00 07:00 WBC 14.8 H RBC 2.38 L Hgb 6.4 L Hct 20.5 L MCH 27 L MCHC 31 L RDW 18.2 H Plt Count Lymph % (Auto) 5.3 L [place] % (Auto) Eos % (Auto) 9.5 H Lymph # 0.8 L [place] # Eos # 1.4 H Seg Neutrophils % 81.2 H Seg Neuts % (Manual) Lymphocytes % (Manual) Seg Neutrophils # 12.0 H Seg Neutrophils # Man Lymphocytes # (Manual) POC ABG pH POC ABG pO2 Sodium 148 H Potassium Chloride 112.0 H Carbon Dioxide BUN 73 H Creatinine Glucose 105 H POC Glucose 115 H Lactic Acid Calcium 8.1 L Phosphorus Magnesium AST Alkaline Phosphatase Troponin T C-Reactive Protein Albumin 1.5 L Cholesterol LDL Cholesterol Direct HDL Cholesterol Urine WBC (Auto) Urine Creatinine Vancomycin Trough Crossmatch 10/04/18 10/04/18 10/05/18 12:35 18:28 04:20 WBC 14.1 H RBC 2.94 L Hgb 8.2 L Hct 25.2 L MCH MCHC RDW 17.9 H Plt Count Lymph % (Auto) 6.6 L [place] % (Auto) Eos % (Auto) 6.4 H Lymph # 0.9 L [place] # Eos # 0.9 H Seg Neutrophils % 82.7 H Seg Neuts % (Manual) Lymphocytes % (Manual) Seg Neutrophils # 11.6 H Seg Neutrophils # Man Lymphocytes # (Manual) POC ABG pH POC ABG pO2 Sodium Potassium Chloride Carbon Dioxide BUN Creatinine Glucose POC Glucose 109 H 109 H Lactic Acid Calcium Phosphorus Magnesium AST Alkaline Phosphatase Troponin T C-Reactive Protein Albumin Cholesterol LDL Cholesterol Direct HDL Cholesterol Urine WBC (Auto) Urine Creatinine Vancomycin Trough Crossmatch 10/05/18 10/05/18 10/05/18 04:20 11:45 17:32 WBC RBC Hgb Hct MCH MCHC RDW Plt Count Lymph % (Auto) [place] % (Auto) Eos % (Auto) Lymph # [place] # Eos # Seg Neutrophils % Seg Neuts % (Manual) Lymphocytes % (Manual) Seg Neutrophils # Seg Neutrophils # Man Lymphocytes # (Manual) POC ABG pH POC ABG pO2 Sodium Potassium Chloride 110.0 H Carbon Dioxide 21 L BUN 64 H Creatinine Glucose POC Glucose 118 H 113 H Lactic Acid Calcium 8.3 L Phosphorus Magnesium AST Alkaline Phosphatase Troponin T C-Reactive Protein Albumin Cholesterol LDL Cholesterol Direct HDL Cholesterol Urine WBC (Auto) Urine Creatinine Vancomycin Trough Crossmatch 10/06/18 10/06/18 10/06/18 05:15 05:15 05:35 WBC 12.3 H RBC 2.77 L Hgb 7.6 L Hct 24.1 L MCH MCHC RDW 18.1 H Plt Count Lymph % (Auto) 4.9 L [place] % (Auto) Eos % (Auto) 7.3 H Lymph # 0.6 L [place] # Eos # 0.9 H Seg Neutrophils % 81.1 H Seg Neuts % (Manual) Lymphocytes % (Manual) Seg Neutrophils # 10.0 H Seg Neutrophils # Man Lymphocytes # (Manual) POC ABG pH POC ABG pO2 Sodium 146 H Potassium Chloride 112.1 H Carbon Dioxide BUN 57 H Creatinine Glucose 120 H POC Glucose 115 H Lactic Acid Calcium Phosphorus Magnesium AST Alkaline Phosphatase Troponin T C-Reactive Protein Albumin Cholesterol LDL Cholesterol Direct HDL Cholesterol Urine WBC (Auto) Urine Creatinine Vancomycin Trough Crossmatch 10/06/18 10/06/18 10/06/18 12:31 18:44 Unknown WBC RBC Hgb Hct MCH MCHC RDW Plt Count Lymph % (Auto) [place] % (Auto) Eos % (Auto) Lymph # [place] # Eos # Seg Neutrophils % Seg Neuts % (Manual) Lymphocytes % (Manual) Seg Neutrophils # Seg Neutrophils # Man Lymphocytes # (Manual) POC ABG pH POC ABG pO2 Sodium Potassium Chloride Carbon Dioxide BUN Creatinine Glucose POC Glucose 150 H 125 H Lactic Acid Calcium Phosphorus Magnesium AST Alkaline Phosphatase Troponin T C-Reactive Protein Albumin Cholesterol LDL Cholesterol Direct HDL Cholesterol Urine WBC (Auto) Urine Creatinine Vancomycin Trough 23.5 H Crossmatch 10/07/18 10/07/18 10/07/18 05:06 05:06 08:34 WBC RBC Hgb 8.2 L Hct 25.8 L MCH MCHC RDW Plt Count Lymph % (Auto) [place] % (Auto) Eos % (Auto) Lymph # [place] # Eos # Seg Neutrophils % Seg Neuts % (Manual) Lymphocytes % (Manual) Seg Neutrophils # Seg Neutrophils # Man Lymphocytes # (Manual) POC ABG pH POC ABG pO2 Sodium Potassium Chloride 112.2 H Carbon Dioxide 21 L BUN 43 H Creatinine Glucose POC Glucose Lactic Acid Calcium 8.3 L Phosphorus Magnesium AST Alkaline Phosphatase Troponin T C-Reactive Protein Albumin Cholesterol LDL Cholesterol Direct HDL Cholesterol Urine WBC (Auto) Urine Creatinine Vancomycin Trough 23.0 H Crossmatch 10/08/18 10/08/18 10/08/18 05:07 05:07 11:09 WBC RBC 2.86 L Hgb 8.0 L Hct 24.5 L MCH MCHC RDW 18.7 H Plt Count Lymph % (Auto) 7.8 L [place] % (Auto) 8.2 H Eos % (Auto) 5.9 H Lymph # 0.8 L [place] # 0.9 H Eos # 0.6 H Seg Neutrophils % 77.8 H Seg Neuts % (Manual) Lymphocytes % (Manual) Seg Neutrophils # 8.2 H Seg Neutrophils # Man Lymphocytes # (Manual) POC ABG pH POC ABG pO2 Sodium Potassium 5.1 H Chloride 111.8 H Carbon Dioxide BUN 37 H Creatinine Glucose 101 H POC Glucose Lactic Acid Calcium 8.3 L Phosphorus Magnesium 2.50 H AST Alkaline Phosphatase Troponin T C-Reactive Protein 11.40 H Albumin Cholesterol LDL Cholesterol Direct HDL Cholesterol Urine WBC (Auto) Urine Creatinine Vancomycin Trough Crossmatch 10/09/18 10/10/18 10/10/18 05:48 09:02 09:02 WBC 13.6 H RBC 2.80 L Hgb 7.5 L Hct 23.9 L MCH 27 L MCHC 31 L RDW 18.9 H Plt Count Lymph % (Auto) 5.7 L [place] % (Auto) 8.5 H Eos % (Auto) Lymph # 0.8 L [place] # 1.1 H Eos # Seg Neutrophils % 83.9 H Seg Neuts % (Manual) Lymphocytes % (Manual) Seg Neutrophils # 11.4 H Seg Neutrophils # Man Lymphocytes # (Manual) POC ABG pH POC ABG pO2 Sodium Potassium 5.2 H 5.6 H Chloride 112.9 H 111.7 H Carbon Dioxide 21 L BUN 34 H 32 H Creatinine 0.7 L Glucose 109 H POC Glucose Lactic Acid Calcium Phosphorus Magnesium AST Alkaline Phosphatase Troponin T C-Reactive Protein Albumin Cholesterol LDL Cholesterol Direct HDL Cholesterol Urine WBC (Auto) Urine Creatinine Vancomycin Trough Crossmatch 10/11/18 10/11/18 10/11/18 04:41 04:41 09:09 WBC 11.4 H RBC 2.52 L Hgb 6.9 L Hct 22.0 L MCH 27 L MCHC 31 L RDW 19.0 H Plt Count Lymph % (Auto) [place] % (Auto) Eos % (Auto) Lymph # [place] # Eos # Seg Neutrophils % Seg Neuts % (Manual) Lymphocytes % (Manual) Seg Neutrophils # Seg Neutrophils # Man Lymphocytes # (Manual) POC ABG pH POC ABG pO2 Sodium 146 H Potassium Chloride 113.0 H Carbon Dioxide BUN 30 H Creatinine Glucose POC Glucose Lactic Acid Calcium 8.2 L Phosphorus Magnesium AST Alkaline Phosphatase Troponin T C-Reactive Protein Albumin Cholesterol LDL Cholesterol Direct HDL Cholesterol Urine WBC (Auto) Urine Creatinine Vancomycin Trough Crossmatch See Detail 10/11/18 10/12/18 10/12/18 23:29 04:22 04:22 WBC RBC 2.98 L Hgb 8.3 L Hct 25.5 L MCH MCHC RDW 17.7 H Plt Count Lymph % (Auto) [place] % (Auto) Eos % (Auto) Lymph # [place] # Eos # Seg Neutrophils % Seg Neuts % (Manual) Lymphocytes % (Manual) Seg Neutrophils # Seg Neutrophils # Man Lymphocytes # (Manual) POC ABG pH POC ABG pO2 Sodium 146 H 146 H Potassium Chloride 110.6 H 112.8 H Carbon Dioxide BUN 30 H 29 H Creatinine Glucose 102 H POC Glucose Lactic Acid Calcium 8.2 L Phosphorus 4.60 H Magnesium AST Alkaline Phosphatase Troponin T C-Reactive Protein Albumin Cholesterol LDL Cholesterol Direct HDL Cholesterol Urine WBC (Auto) Urine Creatinine Vancomycin Trough Crossmatch Allied health notes reviewed: nursing
[2018-10-12] MEDS: THERAGRAN Tab PO SCH (10:06)
[2018-10-12] MEDS: PEPCID PO SCH (10:06)
[2018-10-12] MEDS: KEPPRA PO SCH ×2 (10:07→22:48)
[2018-10-12] MEDS: HEPARIN SUB-Q SCH ×2 (10:07→22:57)
[2018-10-12] MEDS: HCTZ PO SCH ×2 (10:08→20:15)
[2018-10-12] MEDS: VITAMIN C FEEDTUBE SCH ×2 (10:08→22:48)
[2018-10-12] MEDS: SODIUM CHLORIDE FLUSH SYRINGE 10 ML IV SCH ×2 (10:09→22:49)
[2018-10-12] MEDS: COREG PO SCH ×2 (10:09→22:48)
[2018-10-12] MEDS: VANCOMYCIN/NS 1 GM/250 ML 1 GM/250 ML BAG IV SCH (10:53)
[2018-10-12] MEDS: ZINC SULFATE PO SCH (10:54)
--- NOTE | 2018-10-12 13:08 | Progress Note ---
Assessment and Plan 1. Acute kidney injury: Vasomotor / hemodynamic M[place]NICA in the setting of hypotension, sepsis and volume depletion. Renal function is improving. Monitor renal function. Avoid nephrotoxic agents. Meds dosage based on GFR. 2. FEN: Hyperkalemia, K level is better. Hypernatremia, stable. Monitor lytes. 3. Sepsis with shock: MRSA bacteremia. Off pressors. 4. Anemia: PRBC. 5. Multiple decubitus wound: Chronic bedridden status. 6. Encephalopathy. Subjective Date of service: 10/12/18 Principal diagnosis: Septic shock; Ac encephalopathy; Multiple decubitus ulcers; Ac renal failur Interval history: Patient was seen and examined at the bedside. Objective - Vital Signs Vital signs: Vital Signs - 12hr 10/12/18 10/12/18 10/12/18 05:18 08:11 08:15 Temperature 98.7 F 97.5 F L Pulse Rate 96 H 77 Pulse Rate [ 86 Left Radial] Pulse Rate [ 86 Right Radial] Respiratory 18 20 18 Rate Blood Pressure 159/56 Blood Pressure 152/74 [Left] O2 Sat by Pulse 97 96 100 Oximetry - General Appearance General appearance: well-developed, appears stated age, other (not in distress, dependent edema noted) EENT: ATNC Respiratory: Present: Clear to Ascultation Cardiology: regular, S1S2, no murmurs Gastrointestinal: normoactive bowel sounds, no tenderness, no distended, other (PEG tube noted) Integumentary: ulcer, decubiti Neurologic: other (not following any command) Musculoskeletal: other (contractures noted) - Lab 10/12/18 04:22 10/12/18 04:22 Most recent lab results Calcium 8.2 mg/dL (8.4-10.2) L 10/12/18 04:22 Phosphorus 4.50 mg/dL (2.5-4.5) 10/12/18 04:22 Magnesium 2.30 mg/dL (1.7-2.3) 10/12/18 04:22 74.7 mg/dL (0.1-20.0) H 10/02/18 04:45 21 mmol/L 10/02/18 04:45 Medications & Allergies - Medications Allergies/Adverse Reactions: Allergies lisinopril Allergy (Verified 10/01/18 15:17) Unknown tramadol Allergy (Verified 07/29/18 18:39) Unknown Home Medications: Home Medications Medication Instructions Recorded Confirmed Last Taken Type Multivit-Min/Iron Fum/Folic AC 1 each PO DAILY 03/24/18 10/03/18 Unknown History [Ohifr-Cpmrefs-Nfweoyfy Tablet] Acetaminophen 650 mg NGTUBE Q6H PRN 07/30/18 10/03/18 Unknown History AtorvaSTATin [Lipitor] 40 mg NGTUBE QHS 07/30/18 10/03/18 Unknown History Dutasteride 0.5 mg NGTUBE QAM 07/30/18 10/03/18 Unknown History Ipratropium/Albuterol Sulfate 1 ampul IH BID 07/30/18 10/03/18 Unknown History [DUONEB *Not for PRN Use*] Lisinopril [Zestril TAB] 40 mg PO QDAY 07/30/18 10/03/18 Unknown History Tamsulosin [Flomax] 0.4 mg PO QDAY 07/30/18 10/03/18 Unknown History Vit C/Ascorbate Calcium,Sodium 500 mg NGTUBE BID 07/30/18 10/03/18 Unknown History [Vitamin C 500 mg/15 ml Liquid] Zinc Sulfate 220 mg NGTUBE QDAY 07/30/18 10/03/18 Unknown History levETIRAcetam [Keppra INJ] 500 mg PO Q12H 07/30/18 10/03/18 Unknown History Carvedilol [Coreg] 3.125 mg PO BID #60 tablet 08/23/18 10/03/18 Unknown Rx Furosemide [Lasix] 20 mg PO QDAY #30 tablet 08/23/18 10/03/18 Unknown Rx Oxycodone HCl/Acetaminophen 1 each PO Q8HR PRN #14 tablet 08/23/18 10/03/18 Unknown Rx [Percocet 7.5/325 mg] Phosphorus #1 [K-Phos Neutral] 250 mg PO QID #30 tablet 08/23/18 10/03/18 Unknown Rx hydroCHLOROthiazide [HCTZ] 12.5 mg PO QDAY #30 tablet 08/23/18 10/03/18 Unknown Rx Active Medications: Generic Name Dose Route Start Last Admin Trade Name Freq PRN Reason Stop Dose Admin Acetaminophen 650 mg 10/01/18 15:32 10/11/18 00:54 Tylenol FEEDTUBE 650 mg Q6H PRN Administration Pain, Moderate (4-6) Albuterol 2.5 mg 10/01/18 17:40 10/04/18 21:02 Proventil IH 2.5 mg Q3HRT PRN Administration Shortness Of Breath Lipase/Protease/Amylase 1 each 10/04/18 14:58 Pancrenomi Moore 10,500 Unit FEEDTUBE PRN PRN For Clogged Feeding Tube Ascorbic Acid 500 mg 10/04/18 10:00 10/12/18 10:08 Vitamin C FEEDTUBE 500 mg BID NORA Administration Atorvastatin Calcium 40 mg 10/01/18 22:00 10/11/18 22:58 Lipitor FEEDTUBE 40 mg QHS NORA Administration Carvedilol 3.125 mg 10/09/18 16:00 10/12/18 10:09 Coreg PO 3.125 mg BID NORA Administration Clonidine HCl 0.2 mg 10/08/18 10:00 10/08/18 09:52 Catapres-Tts Patch TD 0.2 mg Tu NORA Administration Famotidine 20 mg 10/03/18 12:00 10/12/18 10:06 Pepcid PO 20 mg DAILY NORA Administration Heparin Sodium (Porcine) 5,000 unit 10/01/18 22:00 10/12/18 10:07 Heparin SUB-Q 5,000 unit Q12HR NORA Administration Hydralazine HCl 10 mg 10/07/18 15:12 10/07/18 18:00 Apresoline IV 10 mg Q4HR PRN Administration Blood Pressure Hydrochlorothiazide 25 mg 10/11/18 09:00 10/12/18 10:08 Hctz PO 25 mg QDAY NORA Administration Vancomycin HCl 1 gm in 250 mls @ 167.007 mls/hr 10/08/18 10:00 10/10/18 11:42 Vancomycin/Ns 1 Gm/250 Ml IV 167.007 mls/hr Q48HR NORA Administration Levetiracetam 500 mg 10/01/18 22:00 10/12/18 10:07 Keppra PO 500 mg BID NORA Administration Multivitamins 1 each 10/02/18 10:00 10/12/18 10:06 Theragran Tab PO 1 each DAILY NORA Administration Oxycodone/Acetaminophen 1 tab 10/02/18 20:16 10/08/18 23:23 Percocet 5/325 PO 1 tab Q4H PRN Administration Pain, Moderate (4-6) Simple Syrup 15 ml 10/02/18 10:35 Simple Syrup FEEDTUBE PRN PRN Hypoglycemia Simple Syrup 30 ml 10/02/18 10:35 Simple Syrup FEEDTUBE PRN PRN Hypoglycemia Sodium Bicarbonate 325 mg 10/02/18 10:35 Sodium Bicarbonate FEEDTUBE PRN PRN For Clogged Feeding Tube Sodium Chloride 10 ml 10/01/18 22:00 10/12/18 10:09 Sodium Chloride Flush Syringe 10 Ml IV 10 ml BID NORA Administration Sodium Chloride 10 ml 10/01/18 17:40 10/05/18 21:30 Sodium Chloride Flush Syringe 10 Ml IV 10 ml PRN PRN Administration LINE FLUSH Zinc Sulfate 220 mg 10/02/18 10:00 10/11/18 10:11 Zinc Sulfate PO 220 mg QDAY NORA Administration
--- NOTE | 2018-10-12 16:59 | Progress Note ---
Assessment and Plan Assessment and plan: Severe sepsis with shock, POA due to bacteremia, UTI and RUL PNA continue Sepsis Protocol: IV antibiotic therapy, IVF resuscitation therapy, MRSA on Blood cultures, s/p IV pressors , ID consulted Per ID: - Continue vancomycin now for MRSA bacteremia. So far no clear source for MRSA bacteremia but suspected possible infected decubitus ulcer - treated with meropenem for 5 days to cover UTI as urine culture was not sent and he has h/o MDR GNRs MRSA bacteremia - possible source infected decubitus ulcer - cont vanc, ID following, 2d echo showed no vegetation Decubitus ulcer, multiple with different stages - cont wound care, abx per ID - Could be the source for bacteremia, ID ordered for WBC scan but could not be done because of his chronic contracture/anatomical position Anemia, s/p 2 units blood transfusion, likely AOCD and severe sepsis - stool for occult blood negative, cont to monitor hgb 8.3 after 1 Units PRBC yesterday Hyperkalemia. Give kayexalate, Insulin, Dextrose, repeat in am MÓNICA with vasomotor nephropathy renal function stable with IVF resuscitation therapy, monitor uop q shift, nephrology consulted in ED. Right upper lobe Pneumonia, suspect aspiration Treated with IV antibiotic therapy, supplemental oxygen, pulse oximetry, Elevated troponin Likely due to sepsis with low blood pressure and renal failure Monitor with Serial cardiac enzymes, Cardiology consulted in ED, No EKG changes, supportive care, UTI (lower urinary tract infection) Treated with IV antibiotic therapy, IV fluids Acute hypoxic Respiratory failure Likely due to underlying pneumonia Continue to provide Supplemental oxygen, nebulizer therapy, NIPPV as clinically indicated, pulse oximetry, Moderate to severe protein calorie malnutrition - BMI 17.8, albumin 1.7 - consulted dietary, continue tube feeding for now hypernatremia, on hypotonic saline Hypokalemia/hyperkalemia, - repleted for hypokalemia now potassium level 5.2 - Given 1 dose of Kayexalate will follow response Hypertension, placed on clonidine patch DVT prophylaxis SCD to BLE while in bed, prophylactic heparin Disposition: wait for final ID recommendation for d/c abx coverage History Interval history: patient with MRSA bacteremia Hospitalist Physical - Physical exam Narrative exam: Gen: Not in acute distress, lying in bed, HEENT: Normocephalic, atraumatic Neck: supple, no JVD Heart: S1 and S2 reg, no murmurs, rubs or gallop Lungs: Clear, no crackles, no wheeze Abd: soft, non tender, non distended, normal BS Ext: No edema, no clubbing, no cyanosis, Neuro: Lethargic, - Constitutional Vitals: Temp Pulse Resp BP Pulse Ox 97.5 F L 77 18 152/74 100 10/12/18 08:15 10/12/18 08:15 10/12/18 08:15 10/12/18 08:15 10/12/18 16:13 General appearance: Present: no acute distress Results - Labs CBC & Chem 7: 10/12/18 04:22 10/12/18 04:22 Labs: Laboratory Last Values WBC 9.5 K/mm3 (4.5-11.0) 10/12/18 04:22 RBC 2.98 M/mm3 (3.65-5.03) L 10/12/18 04:22 Hgb 8.3 gm/dl (11.8-15.2) L 10/12/18 04:22 Hct 25.5 % (35.5-45.6) L 10/12/18 04:22 MCV 86 fl (84-94) 10/12/18 04:22 MCH 28 pg (28-32) 10/12/18 04:22 MCHC 33 % (32-34) 10/12/18 04:22 RDW 17.7 % (13.2-15.2) H 10/12/18 04:22 Plt Count 383 K/mm3 (140-440) 10/12/18 04:22 Lymph % (Auto) 5.7 % (13.4-35.0) L 10/10/18 09:02 [place] % (Auto) 8.5 % (0.0-7.3) H 10/10/18 09:02 Eos % (Auto) 1.6 % (0.0-4.3) 10/10/18 09:02 Baso % (Auto) 0.3 % (0.0-1.8) 10/10/18 09:02 Lymph # 0.8 K/mm3 (1.2-5.4) L 10/10/18 09:02 [place] # 1.1 K/mm3 (0.0-0.8) H 10/10/18 09:02 Eos # 0.2 K/mm3 (0.0-0.4) 10/10/18 09:02 Baso # 0.0 K/mm3 (0.0-0.1) 10/10/18 09:02 Add Manual Diff Complete 10/02/18 04:45 Total Counted 100 10/02/18 04:45 Seg Neutrophils % 83.9 % (40.0-70.0) H 10/10/18 09:02 Seg Neuts % (Manual) 78.0 % (40.0-70.0) H 10/02/18 04:45 14.0 % 10/02/18 04:45 5.0 % (13.4-35.0) L 10/02/18 04:45 Reactive Lymphs % (Man) 0 % 10/02/18 04:45 2.0 % (0.0-7.3) 10/02/18 04:45 1.0 % (0.0-4.3) 10/02/18 04:45 0 % (0.0-1.8) 10/02/18 04:45 0 % 10/02/18 04:45 0 % 10/02/18 04:45 0 % 10/02/18 04:45 0 % 10/02/18 04:45 Nucleated RBC % Not Reportable 10/02/18 04:45 Seg Neutrophils # 11.4 K/mm3 (1.8-7.7) H 10/10/18 09:02 Seg Neutrophils # Man 14.3 K/mm3 (1.8-7.7) H 10/02/18 04:45 Band Neutrophils # 2.6 K/mm3 10/02/18 04:45 0.9 K/mm3 (1.2-5.4) L 10/02/18 04:45 Abs React Lymphs (Man) 0.0 K/mm3 10/02/18 04:45 0.4 K/mm3 (0.0-0.8) 10/02/18 04:45 0.2 K/mm3 (0.0-0.4) 10/02/18 04:45 0.0 K/mm3 (0.0-0.1) 10/02/18 04:45 0.0 K/mm3 10/02/18 04:45 0.0 K/mm3 10/02/18 04:45 0.0 K/mm3 10/02/18 04:45 Blast Cells # 0.0 K/mm3 10/02/18 04:45 WBC Morphology Not Reportable 10/02/18 04:45 WBC Morphology TNR 10/02/18 04:45 Hypersegmented Neuts Not Reportable 10/02/18 04:45 Hyposegmented Neuts Not Reportable 10/02/18 04:45 Hypogranular Neuts Not Reportable 10/02/18 04:45 Not Reportable 10/02/18 04:45 Not Reportable 10/02/18 04:45 Not Reportable 10/02/18 04:45 Not Reportable 10/02/18 04:45 Not Reportable 10/02/18 04:45 Not Reportable 10/02/18 04:45 Consistent w auto 10/02/18 04:45 Not Reportable 10/02/18 04:45 Plt Clumps, EDTA Not Reportable 10/02/18 04:45 Not Reportable 10/02/18 04:45 Not Reportable 10/02/18 04:45 Not Reportable 10/02/18 04:45 Plt Morphology Comment Not Reportable 10/02/18 04:45 RBC Morphology Not Reportable 10/02/18 04:45 Dimorphic RBCs Not Reportable 10/02/18 04:45 Few 10/02/18 04:45 Not Reportable 10/02/18 04:45 Not Reportable 10/02/18 04:45 1+ 10/02/18 04:45 Not Reportable 10/02/18 04:45 2+ 10/02/18 04:45 Not Reportable 10/02/18 04:45 Not Reportable 10/02/18 04:45 Not Reportable 10/02/18 04:45 Not Reportable 10/02/18 04:45 Not Reportable 10/02/18 04:45 Not Reportable 10/02/18 04:45 Not Reportable 10/02/18 04:45 Not Reportable 10/02/18 04:45 Not Reportable 10/02/18 04:45 Not Reportable 10/02/18 04:45 Not Reportable 10/02/18 04:45 Not Reportable 10/02/18 04:45 Not Reportable 10/02/18 04:45 Acanthocytes (Spur) Not Reportable 10/02/18 04:45 Rouleaux Not Reportable 10/02/18 04:45 Not Reportable 10/02/18 04:45 Not Reportable 10/02/18 04:45 Not Reportable 10/02/18 04:45 Not Reportable 10/02/18 04:45 Hem Pathologist Commnt No 10/02/18 04:45 POC ABG pH 7.480 (7.35-7.45) H 10/01/18 18:12 POC ABG pO2 64 (80-105) L 10/01/18 18:12 POC ABG HCO3 21.0 (22-26 mml/L) 10/01/18 18:12 POC ABG Total CO2 22 (23-27mmol/L) 10/01/18 18:12 POC ABG O2 Sat 94 10/01/18 18:12 POC ABG Base Excess -3 ((-2) - (+3)mmol/L) 10/01/18 18:12 32 % 10/01/18 18:12 Sodium 146 mmol/L (137-145) H 10/12/18 04:22 Potassium 5.0 mmol/L (3.6-5.0) 10/12/18 04:22 Chloride 112.8 mmol/L (98-107) H 10/12/18 04:22 Carbon Dioxide 23 mmol/L (22-30) 10/12/18 04:22 15 mmol/L 10/12/18 04:22 BUN 29 mg/dL (9-20) H 10/12/18 04:22 0.9 mg/dL (0.8-1.5) 10/12/18 04:22 Estimated GFR > 60 ml/min 10/12/18 04:22 32 % 10/12/18 04:22 Glucose 102 mg/dL (75-100) H 10/12/18 04:22 POC Glucose 99 (70-105) 10/07/18 15:25 Lactic Acid 1.70 mmol/L (0.7-2.0) 10/03/18 22:45 Calcium 8.2 mg/dL (8.4-10.2) L 10/12/18 04:22 Phosphorus 4.50 mg/dL (2.5-4.5) 10/12/18 04:22 Magnesium 2.30 mg/dL (1.7-2.3) 10/12/18 04:22 < 0.20 mg/dL (0.1-1.2) 10/04/18 07:00 < 0.2 mg/dL (0-0.2) 10/04/18 07:00 0.0 mg/dL 10/04/18 07:00 AST 25 units/L (5-40) 10/04/18 07:00 ALT 15 units/L (7-56) 10/04/18 07:00 124 units/L (35-129) 10/04/18 07:00 0.336 ng/mL (0.00-0.029) H* 10/01/18 23:48 11.40 mg/dL (0.00-1.30) H 10/08/18 05:07 6.5 g/dL (6.3-8.2) 10/04/18 07:00 1.5 g/dL (3.9-5) L 10/04/18 07:00 0.3 % 10/04/18 07:00 Triglycerides 111 mg/dL (2-149) 10/01/18 14:29 Cholesterol 36 mg/dL (50-199) L 10/01/18 14:29 6 mg/dL (50-130) L 10/01/18 14:29 21 mg/dL (40-59) L 10/01/18 14:29 1.71 % 10/01/18 14:29 Free PSA See scanned result 10/01/18 17:53 % Free PSA Calc See scanned result 10/01/18 17:53 Total PSA See scanned result 10/01/18 17:53 TSH 0.870 mlU/mL (0.270-4.200) 10/01/18 18:23 Free T4 1.05 ng/dL (0.76-1.46) 10/01/18 18:23 [place] (Yellow) 10/01/18 15:13 Cloudy (Clear) 10/01/18 15:13 5.0 (5.0-7.0) 10/01/18 15:13 Ur Specific [place] 1.023 (1.003-1.030) 10/01/18 15:13 100 mg/dl mg/dL (Negative) 10/01/18 15:13 Neg mg/dL (Negative) 10/01/18 15:13 Tr mg/dL (Negative) 10/01/18 15:13 Neg (Negative) 10/01/18 15:13 Neg (Negative) 10/01/18 15:13 Neg (Negative) 10/01/18 15:13 < 2.0 mg/dL (<2.0) 10/01/18 15:13 Ur Leukocyte Esterase Lg (Negative) 10/01/18 15:13 > 182.0 /HPF (0.0-6.0) H 10/01/18 15:13 12.0 /HPF (0.0-6.0) 10/01/18 15:13 4+ /HPF (Negative) 10/01/18 15:13 3+ /HPF 10/01/18 15:13 74.7 mg/dL (0.1-20.0) H 10/02/18 04:45 21 mmol/L 10/02/18 04:45 Vancomycin Trough 23.0 ug/mL (5.0-20.0) H 10/07/18 08:34 Blood Type O POSITIVE 10/11/18 09:09 Antibody Screen Negative 10/11/18 09:09 Crossmatch See Detail 10/11/18 09:09 Active Medications - Current Medications Current Medications: Generic Name Dose Route Start Last Admin Trade Name Freq PRN Reason Stop Dose Admin Acetaminophen 650 mg 10/01/18 15:32 10/11/18 00:54 Tylenol FEEDTUBE 650 mg Q6H PRN Administration Pain, Moderate (4-6) Albuterol 2.5 mg 10/01/18 17:40 10/04/18 21:02 Proventil IH 2.5 mg Q3HRT PRN Administration Shortness Of Breath Lipase/Protease/Amylase 1 each 10/04/18 14:[address] 10,500 Unit FEEDTUBE PRN PRN For Clogged Feeding Tube Ascorbic Acid 500 mg 10/04/18 10:00 10/12/18 10:08 Vitamin C FEEDTUBE 500 mg BID NORA Administration Atorvastatin Calcium 40 mg 10/01/18 22:00 10/11/18 22:58 Lipitor FEEDTUBE 40 mg QHS NORA Administration Carvedilol 3.125 mg 10/09/18 16:00 10/12/18 10:09 Coreg PO 3.125 mg BID NORA Administration Clonidine HCl 0.2 mg 10/08/18 10:00 10/08/18 09:52 Catapres-Tts Patch TD 0.2 mg Tu NORA Administration Famotidine 20 mg 10/03/18 12:00 10/12/18 10:06 Pepcid PO 20 mg DAILY NORA Administration Heparin Sodium (Porcine) 5,000 unit 10/01/18 22:00 10/12/18 10:07 Heparin SUB-Q 5,000 unit Q12HR NORA Administration Hydralazine HCl 10 mg 10/07/18 15:12 10/07/18 18:00 Apresoline IV 10 mg Q4HR PRN Administration Blood Pressure Hydrochlorothiazide 25 mg 10/11/18 09:00 10/12/18 10:08 Hctz PO 25 mg QDAY NORA Administration Vancomycin HCl 1 gm in 250 mls @ 167.007 mls/hr 10/08/18 10:00 10/10/18 11:42 Vancomycin/Ns 1 Gm/250 Ml IV 167.007 mls/hr Q48HR NORA Administration Levetiracetam 500 mg 10/01/18 22:00 10/12/18 10:07 Keppra PO 500 mg BID NORA Administration Multivitamins 1 each 10/02/18 10:00 10/12/18 10:06 Theragran Tab PO 1 each DAILY NORA Administration Oxycodone/Acetaminophen 1 tab 10/02/18 20:16 10/08/18 23:23 Percocet 5/325 PO 1 tab Q4H PRN Administration Pain, Moderate (4-6) Simple Syrup 15 ml 10/02/18 10:35 Simple Syrup FEEDTUBE PRN PRN Hypoglycemia Simple Syrup 30 ml 10/02/18 10:35 Simple Syrup FEEDTUBE PRN PRN Hypoglycemia Sodium Bicarbonate 325 mg 10/02/18 10:35 Sodium Bicarbonate FEEDTUBE PRN PRN For Clogged Feeding Tube Sodium Chloride 10 ml 10/01/18 22:00 10/12/18 10:09 Sodium Chloride Flush Syringe 10 Ml IV 10 ml BID NORA Administration Sodium Chloride 10 ml 10/01/18 17:40 10/05/18 21:30 Sodium Chloride Flush Syringe 10 Ml IV 10 ml PRN PRN Administration LINE FLUSH Zinc Sulfate 220 mg 10/02/18 10:00 10/11/18 10:11 Zinc Sulfate PO 220 mg QDAY NORA Administration Nutrition/Malnutrition Assess - Dietary Evaluation Nutrition/Malnutrition Findings: Nutrition Notes Start: 10/02/18 10:21 Freq: Status: Active Protocol: Document 10/07/18 15:09 RM (Rec: 10/07/18 15:10 RM [id number]) Nutrition Notes Initial or Follow up Reassessment Current Diagnosis Acute Kidney Injury,COPD, Decubitus(Pressure Ulcer), Diabetes,Sepsis,Hypertension, Heart Failure,Stroke Other Pertinent Diagnosis UTI, pneu, dementia, multiple PU Current Diet Glucerna 1.2 at 60 ml/hr Labs/Tests Na 144 Pertinent Medications Reviewed Height 5 ft 8 in Weight 68 kg [place] Body Weight (kg) 70.00 BMI 22.8 Weight change and time frame Current wt obtained from [facility]. Wt gain possibly d/t fluid change. Subjective/Other Information Observed Glucerna 1.2 infusing at 60 ml/hr. Per nurse pt is tolerating TF. Percent of energy/protein needs met: 94%/100% Burn Absent Trauma Absent #1 Nutrition Diagnosis Malnutrition Diagnosis Progress(for reassessment Continues documentation) Is patient on ventilator? No Is Patient Ambulatory and/or Out of Bed No REE-([facility]-confined to bed) 1715.112 Kcal/Kg value to use for calculation 27 Approximate Energy Requirements Using 1836 kcal/Kg Calculation Used for Recommendations Kcal/kg Additional Notes Protein needs are 64-140g (1.2 -2g/kg) Fluid needs are 1ml/kcal Nutrition Intervention Nutrition Support: Glucerna 1.2 at 60ml/hr Flush with 150 ml q4h. Kcal 1,728 Protein (gm) 86 Fluid (mL) 1,163 Goal #1 Continue to meet at least 80% of kcal and protein needs Goal #2 Wound healing Anticipated Discharge Needs: Unable to determine at this time Follow-Up By: 10/15/18 Additional Comments Follow for TF tolerance
[2018-10-12] MEDS: KIONEX PO SCH (20:14)
[2018-10-12] MEDS: LASIX PO SCH (20:15)
--- NOTE | 2018-10-13 06:56 | Progress Note ---
Assessment and Plan - Severe Sepsis with septic shock, off vasopressor support -GPC bacteremia -Acute encephalopathy -Multiple decubitus ulcers -Acute metabolic encephaloapthy -Hypernatremia -Recurrent CAUTI -Lactic acidosis -Acute renal failure- prerenal/vasomotor nephropathy -Monitor renal indices closely -Avoid nephrotoxic agents, adjust all medications for CrCL -Strict intake and output monitoring -Wean supplemental oxygen for O2 sats>90% -VTE prophylaxis -Antibiotics per ID, 6 weeks of therapy for osteomyelitis -Continue tube feedings with aspiration precautions - Increase free water flushes to treat hypernatremia. -Accuchecks with glycemic control. Target glucose of 140-180 mg/dL -Bronchodilators with pulmonary hygiene per RT -Wound care per WOCN -Influenza and pneumonia vaccination per protocol -Continue all supportive care at this time -Discharge planning Subjective Date of service: 10/13/18 Principal diagnosis: Septic shock; Ac encephalopathy; Multiple decubitus ulcers; Ac renal failur Interval history: Patient is seen today for: Severe Sepsis with septic shock; GPC bacteremia; Acute encephalopathy; Multiple decubitus ulcers; Acute metabolic encephaloapthy; Hypernatremia; Recurrent CAUTI; Lactic acidosis; Acute renal failure- prerenal/vasomotor nephropathy Seen and examined at bedside; 24hour events reviewed; nursing and respiratory care staff consulted; no adverse overnight events reported to me; resting peacefully in bed; no N/V/F/C; no gross bleeding, awake and alert, on oxygen at 2L NC Objective Vital Signs - 12hr 10/12/18 10/12/18 10/12/18 20:12 21:20 22:00 Temperature 99.4 F Pulse Rate 122 H 125 H Respiratory 18 Rate Blood Pressure 157/91 O2 Sat by Pulse 94 95 Oximetry 10/12/18 10/13/18 23:54 03:51 Temperature 99.8 F H 99.5 F Pulse Rate 109 H 107 H Respiratory 18 18 Rate Blood Pressure 150/81 148/85 O2 Sat by Pulse 98 96 Oximetry Constitutional: no acute distress, other (elderly looking AAM, normocephalic, atraumatic, contracted) Eyes: non-icteric ENT: oropharynx moist Neck: no lymphadenopathy, no JVD, other (neck stiff , fixed flexion) Effort: normal, other (on 2L NC) Ascultation: Bilateral: clear, diminished breath sounds, rhonchi (scant) Percussion: Bilateral: not dull Cardiovascular: regular rate and rhythm, other (S1,S2) Gastrointestinal: normoactive bowel sounds, soft, non-tender, non-distended, other (PEG tube) Integumentary: rash Extremities: no cyanosis, pulses normal, no ischemia or petechiae Neurologic: pupils equal and round Psychiatric: mood appropriate CBC and BMP: 10/12/18 04:22 10/12/18 04:22 ABG, PT/INR, D-dimer: ABG POC ABG pH 7.480 (7.35-7.45) H 10/01/18 18:12 POC ABG pO2 64 (80-105) L 10/01/18 18:12 POC ABG HCO3 21.0 (22-26 mml/L) 10/01/18 18:12 POC ABG Total CO2 22 (23-27mmol/L) 10/01/18 18:12 POC ABG O2 Sat 94 10/01/18 18:12 Abnormal lab findings: Abnormal Labs 10/01/18 10/01/18 10/01/18 14:29 14:29 15:13 WBC 18.5 H RBC 2.68 L Hgb 7.3 L Hct 23.1 L MCH 27 L MCHC 31 L RDW 19.3 H Plt Count 522 H Lymph % (Auto) 6.7 L [place] % (Auto) Eos % (Auto) Lymph # [place] # 1.2 H Eos # Seg Neutrophils % 85.0 H Seg Neuts % (Manual) Lymphocytes % (Manual) Seg Neutrophils # 15.7 H Seg Neutrophils # Man Lymphocytes # (Manual) POC ABG pH POC ABG pO2 Sodium 148 H Potassium 3.3 L Chloride Carbon Dioxide BUN 98 H Creatinine 2.0 H Glucose 142 H POC Glucose Lactic Acid Calcium Phosphorus Magnesium AST Alkaline Phosphatase Troponin T 0.361 H* C-Reactive Protein Albumin Cholesterol 36 L LDL Cholesterol Direct 6 L HDL Cholesterol 21 L Urine WBC (Auto) > 182.0 H Urine Creatinine Vancomycin Trough Crossmatch 10/01/18 10/01/18 10/01/18 15:15 15:15 17:03 WBC RBC Hgb Hct MCH MCHC RDW Plt Count Lymph % (Auto) [place] % (Auto) Eos % (Auto) Lymph # [place] # Eos # Seg Neutrophils % Seg Neuts % (Manual) Lymphocytes % (Manual) Seg Neutrophils # Seg Neutrophils # Man Lymphocytes # (Manual) POC ABG pH POC ABG pO2 Sodium 150 H Potassium Chloride Carbon Dioxide BUN 94 H Creatinine 2.1 H Glucose 132 H POC Glucose Lactic Acid 2.60 H* 2.20 H* Calcium 7.8 L Phosphorus Magnesium AST 47 H Alkaline Phosphatase 179 H Troponin T C-Reactive Protein Albumin 2.1 L Cholesterol LDL Cholesterol Direct HDL Cholesterol Urine WBC (Auto) Urine Creatinine Vancomycin Trough Crossmatch 10/01/18 10/01/18 10/01/18 18:12 18:23 18:23 WBC RBC Hgb Hct MCH MCHC RDW Plt Count Lymph % (Auto) [place] % (Auto) Eos % (Auto) Lymph # [place] # Eos # Seg Neutrophils % Seg Neuts % (Manual) Lymphocytes % (Manual) Seg Neutrophils # Seg Neutrophils # Man Lymphocytes # (Manual) POC ABG pH 7.480 H POC ABG pO2 64 L Sodium Potassium Chloride Carbon Dioxide BUN Creatinine Glucose POC Glucose Lactic Acid Calcium Phosphorus Magnesium 3.30 H AST Alkaline Phosphatase Troponin T 0.378 H* C-Reactive Protein Albumin Cholesterol LDL Cholesterol Direct HDL Cholesterol Urine WBC (Auto) Urine Creatinine Vancomycin Trough Crossmatch 10/01/18 10/01/18 10/01/18 18:48 21:20 23:48 WBC RBC Hgb Hct MCH MCHC RDW Plt Count Lymph % (Auto) [place] % (Auto) Eos % (Auto) Lymph # [place] # Eos # Seg Neutrophils % Seg Neuts % (Manual) Lymphocytes % (Manual) Seg Neutrophils # Seg Neutrophils # Man Lymphocytes # (Manual) POC ABG pH POC ABG pO2 Sodium Potassium Chloride Carbon Dioxide BUN Creatinine Glucose POC Glucose Lactic Acid 2.30 H* 2.70 H* Calcium Phosphorus Magnesium AST Alkaline Phosphatase Troponin T 0.336 H* C-Reactive Protein Albumin Cholesterol LDL Cholesterol Direct HDL Cholesterol Urine WBC (Auto) Urine Creatinine Vancomycin Trough Crossmatch 10/01/18 10/02/18 10/02/18 23:48 04:45 04:45 WBC 18.3 H RBC 2.40 L Hgb 6.4 L Hct 20.4 L MCH 27 L MCHC 31 L RDW 19.1 H Plt Count 462 H Lymph % (Auto) [place] % (Auto) Eos % (Auto) Lymph # [place] # Eos # Seg Neutrophils % Seg Neuts % (Manual) 78.0 H Lymphocytes % (Manual) 5.0 L Seg Neutrophils # Seg Neutrophils # Man 14.3 H Lymphocytes # (Manual) 0.9 L POC ABG pH POC ABG pO2 Sodium Potassium Chloride Carbon Dioxide BUN Creatinine Glucose POC Glucose Lactic Acid 2.50 H* Calcium Phosphorus Magnesium AST Alkaline Phosphatase Troponin T C-Reactive Protein Albumin Cholesterol LDL Cholesterol Direct HDL Cholesterol Urine WBC (Auto) Urine Creatinine 74.7 H Vancomycin Trough Crossmatch 10/02/18 10/02/18 10/02/18 04:45 04:45 04:45 WBC RBC Hgb Hct MCH MCHC RDW Plt Count Lymph % (Auto) [place] % (Auto) Eos % (Auto) Lymph # [place] # Eos # Seg Neutrophils % Seg Neuts % (Manual) Lymphocytes % (Manual) Seg Neutrophils # Seg Neutrophils # Man Lymphocytes # (Manual) POC ABG pH POC ABG pO2 Sodium 148 H Potassium 3.1 L Chloride 108.6 H Carbon Dioxide 21 L BUN 89 H Creatinine 1.8 H Glucose POC Glucose Lactic Acid 2.10 H* Calcium 8.3 L Phosphorus 5.00 H Magnesium AST Alkaline Phosphatase 161 H Troponin T C-Reactive Protein Albumin 1.7 L Cholesterol LDL Cholesterol Direct HDL Cholesterol Urine WBC (Auto) Urine Creatinine Vancomycin Trough Crossmatch 10/02/18 10/02/18 10/03/18 09:46 11:47 00:03 WBC RBC Hgb Hct MCH MCHC RDW Plt Count Lymph % (Auto) [place] % (Auto) Eos % (Auto) Lymph # [place] # Eos # Seg Neutrophils % Seg Neuts % (Manual) Lymphocytes % (Manual) Seg Neutrophils # Seg Neutrophils # Man Lymphocytes # (Manual) POC ABG pH POC ABG pO2 Sodium Potassium Chloride Carbon Dioxide BUN Creatinine Glucose POC Glucose 112 H 106 H Lactic Acid Calcium Phosphorus Magnesium AST Alkaline Phosphatase Troponin T C-Reactive Protein Albumin Cholesterol LDL Cholesterol Direct HDL Cholesterol Urine WBC (Auto) Urine Creatinine Vancomycin Trough Crossmatch See Detail 10/03/18 10/03/18 10/03/18 06:06 06:45 06:45 WBC 17.3 H RBC 2.81 L Hgb 7.6 L Hct 24.1 L MCH 27 L MCHC 31 L RDW 18.4 H Plt Count 473 H Lymph % (Auto) 5.2 L [place] % (Auto) Eos % (Auto) 4.6 H Lymph # 0.9 L [place] # Eos # 0.8 H Seg Neutrophils % 85.7 H Seg Neuts % (Manual) Lymphocytes % (Manual) Seg Neutrophils # 14.8 H Seg Neutrophils # Man Lymphocytes # (Manual) POC ABG pH POC ABG pO2 Sodium 148 H Potassium Chloride 112.1 H Carbon Dioxide 21 L BUN 79 H Creatinine 1.7 H Glucose 116 H POC Glucose 130 H Lactic Acid Calcium 7.9 L Phosphorus Magnesium AST Alkaline Phosphatase Troponin T C-Reactive Protein Albumin Cholesterol LDL Cholesterol Direct HDL Cholesterol Urine WBC (Auto) Urine Creatinine Vancomycin Trough Crossmatch 10/03/18 10/03/18 10/03/18 11:50 17:42 23:20 WBC RBC Hgb Hct MCH MCHC RDW Plt Count Lymph % (Auto) [place] % (Auto) Eos % (Auto) Lymph # [place] # Eos # Seg Neutrophils % Seg Neuts % (Manual) Lymphocytes % (Manual) Seg Neutrophils # Seg Neutrophils # Man Lymphocytes # (Manual) POC ABG pH POC ABG pO2 Sodium Potassium Chloride Carbon Dioxide BUN Creatinine Glucose POC Glucose 126 H 118 H 106 H Lactic Acid Calcium Phosphorus Magnesium AST Alkaline Phosphatase Troponin T C-Reactive Protein Albumin Cholesterol LDL Cholesterol Direct HDL Cholesterol Urine WBC (Auto) Urine Creatinine Vancomycin Trough Crossmatch 10/04/18 10/04/18 10/04/18 05:22 07:00 07:00 WBC 14.8 H RBC 2.38 L Hgb 6.4 L Hct 20.5 L MCH 27 L MCHC 31 L RDW 18.2 H Plt Count Lymph % (Auto) 5.3 L [place] % (Auto) Eos % (Auto) 9.5 H Lymph # 0.8 L [place] # Eos # 1.4 H Seg Neutrophils % 81.2 H Seg Neuts % (Manual) Lymphocytes % (Manual) Seg Neutrophils # 12.0 H Seg Neutrophils # Man Lymphocytes # (Manual) POC ABG pH POC ABG pO2 Sodium 148 H Potassium Chloride 112.0 H Carbon Dioxide BUN 73 H Creatinine Glucose 105 H POC Glucose 115 H Lactic Acid Calcium 8.1 L Phosphorus Magnesium AST Alkaline Phosphatase Troponin T C-Reactive Protein Albumin 1.5 L Cholesterol LDL Cholesterol Direct HDL Cholesterol Urine WBC (Auto) Urine Creatinine Vancomycin Trough Crossmatch 10/04/18 10/04/18 10/05/18 12:35 18:28 04:20 WBC 14.1 H RBC 2.94 L Hgb 8.2 L Hct 25.2 L MCH MCHC RDW 17.9 H Plt Count Lymph % (Auto) 6.6 L [place] % (Auto) Eos % (Auto) 6.4 H Lymph # 0.9 L [place] # Eos # 0.9 H Seg Neutrophils % 82.7 H Seg Neuts % (Manual) Lymphocytes % (Manual) Seg Neutrophils # 11.6 H Seg Neutrophils # Man Lymphocytes # (Manual) POC ABG pH POC ABG pO2 Sodium Potassium Chloride Carbon Dioxide BUN Creatinine Glucose POC Glucose 109 H 109 H Lactic Acid Calcium Phosphorus Magnesium AST Alkaline Phosphatase Troponin T C-Reactive Protein Albumin Cholesterol LDL Cholesterol Direct HDL Cholesterol Urine WBC (Auto) Urine Creatinine Vancomycin Trough Crossmatch 10/05/18 10/05/18 10/05/18 04:20 11:45 17:32 WBC RBC Hgb Hct MCH MCHC RDW Plt Count Lymph % (Auto) [place] % (Auto) Eos % (Auto) Lymph # [place] # Eos # Seg Neutrophils % Seg Neuts % (Manual) Lymphocytes % (Manual) Seg Neutrophils # Seg Neutrophils # Man Lymphocytes # (Manual) POC ABG pH POC ABG pO2 Sodium Potassium Chloride 110.0 H Carbon Dioxide 21 L BUN 64 H Creatinine Glucose POC Glucose 118 H 113 H Lactic Acid Calcium 8.3 L Phosphorus Magnesium AST Alkaline Phosphatase Troponin T C-Reactive Protein Albumin Cholesterol LDL Cholesterol Direct HDL Cholesterol Urine WBC (Auto) Urine Creatinine Vancomycin Trough Crossmatch 10/06/18 10/06/18 10/06/18 05:15 05:15 05:35 WBC 12.3 H RBC 2.77 L Hgb 7.6 L Hct 24.1 L MCH MCHC RDW 18.1 H Plt Count Lymph % (Auto) 4.9 L [place] % (Auto) Eos % (Auto) 7.3 H Lymph # 0.6 L [place] # Eos # 0.9 H Seg Neutrophils % 81.1 H Seg Neuts % (Manual) Lymphocytes % (Manual) Seg Neutrophils # 10.0 H Seg Neutrophils # Man Lymphocytes # (Manual) POC ABG pH POC ABG pO2 Sodium 146 H Potassium Chloride 112.1 H Carbon Dioxide BUN 57 H Creatinine Glucose 120 H POC Glucose 115 H Lactic Acid Calcium Phosphorus Magnesium AST Alkaline Phosphatase Troponin T C-Reactive Protein Albumin Cholesterol LDL Cholesterol Direct HDL Cholesterol Urine WBC (Auto) Urine Creatinine Vancomycin Trough Crossmatch 10/06/18 10/06/18 10/06/18 12:31 18:44 Unknown WBC RBC Hgb Hct MCH MCHC RDW Plt Count Lymph % (Auto) [place] % (Auto) Eos % (Auto) Lymph # [place] # Eos # Seg Neutrophils % Seg Neuts % (Manual) Lymphocytes % (Manual) Seg Neutrophils # Seg Neutrophils # Man Lymphocytes # (Manual) POC ABG pH POC ABG pO2 Sodium Potassium Chloride Carbon Dioxide BUN Creatinine Glucose POC Glucose 150 H 125 H Lactic Acid Calcium Phosphorus Magnesium AST Alkaline Phosphatase Troponin T C-Reactive Protein Albumin Cholesterol LDL Cholesterol Direct HDL Cholesterol Urine WBC (Auto) Urine Creatinine Vancomycin Trough 23.5 H Crossmatch 10/07/18 10/07/18 10/07/18 05:06 05:06 08:34 WBC RBC Hgb 8.2 L Hct 25.8 L MCH MCHC RDW Plt Count Lymph % (Auto) [place] % (Auto) Eos % (Auto) Lymph # [place] # Eos # Seg Neutrophils % Seg Neuts % (Manual) Lymphocytes % (Manual) Seg Neutrophils # Seg Neutrophils # Man Lymphocytes # (Manual) POC ABG pH POC ABG pO2 Sodium Potassium Chloride 112.2 H Carbon Dioxide 21 L BUN 43 H Creatinine Glucose POC Glucose Lactic Acid Calcium 8.3 L Phosphorus Magnesium AST Alkaline Phosphatase Troponin T C-Reactive Protein Albumin Cholesterol LDL Cholesterol Direct HDL Cholesterol Urine WBC (Auto) Urine Creatinine Vancomycin Trough 23.0 H Crossmatch 10/08/18 10/08/18 10/08/18 05:07 05:07 11:09 WBC RBC 2.86 L Hgb 8.0 L Hct 24.5 L MCH MCHC RDW 18.7 H Plt Count Lymph % (Auto) 7.8 L [place] % (Auto) 8.2 H Eos % (Auto) 5.9 H Lymph # 0.8 L [place] # 0.9 H Eos # 0.6 H Seg Neutrophils % 77.8 H Seg Neuts % (Manual) Lymphocytes % (Manual) Seg Neutrophils # 8.2 H Seg Neutrophils # Man Lymphocytes # (Manual) POC ABG pH POC ABG pO2 Sodium Potassium 5.1 H Chloride 111.8 H Carbon Dioxide BUN 37 H Creatinine Glucose 101 H POC Glucose Lactic Acid Calcium 8.3 L Phosphorus Magnesium 2.50 H AST Alkaline Phosphatase Troponin T C-Reactive Protein 11.40 H Albumin Cholesterol LDL Cholesterol Direct HDL Cholesterol Urine WBC (Auto) Urine Creatinine Vancomycin Trough Crossmatch 10/09/18 10/10/18 10/10/18 05:48 09:02 09:02 WBC 13.6 H RBC 2.80 L Hgb 7.5 L Hct 23.9 L MCH 27 L MCHC 31 L RDW 18.9 H Plt Count Lymph % (Auto) 5.7 L [place] % (Auto) 8.5 H Eos % (Auto) Lymph # 0.8 L [place] # 1.1 H Eos # Seg Neutrophils % 83.9 H Seg Neuts % (Manual) Lymphocytes % (Manual) Seg Neutrophils # 11.4 H Seg Neutrophils # Man Lymphocytes # (Manual) POC ABG pH POC ABG pO2 Sodium Potassium 5.2 H 5.6 H Chloride 112.9 H 111.7 H Carbon Dioxide 21 L BUN 34 H 32 H Creatinine 0.7 L Glucose 109 H POC Glucose Lactic Acid Calcium Phosphorus Magnesium AST Alkaline Phosphatase Troponin T C-Reactive Protein Albumin Cholesterol LDL Cholesterol Direct HDL Cholesterol Urine WBC (Auto) Urine Creatinine Vancomycin Trough Crossmatch 10/11/18 10/11/18 10/11/18 04:41 04:41 09:09 WBC 11.4 H RBC 2.52 L Hgb 6.9 L Hct 22.0 L MCH 27 L MCHC 31 L RDW 19.0 H Plt Count Lymph % (Auto) [place] % (Auto) Eos % (Auto) Lymph # [place] # Eos # Seg Neutrophils % Seg Neuts % (Manual) Lymphocytes % (Manual) Seg Neutrophils # Seg Neutrophils # Man Lymphocytes # (Manual) POC ABG pH POC ABG pO2 Sodium 146 H Potassium Chloride 113.0 H Carbon Dioxide BUN 30 H Creatinine Glucose POC Glucose Lactic Acid Calcium 8.2 L Phosphorus Magnesium AST Alkaline Phosphatase Troponin T C-Reactive Protein Albumin Cholesterol LDL Cholesterol Direct HDL Cholesterol Urine WBC (Auto) Urine Creatinine Vancomycin Trough Crossmatch See Detail 10/11/18 10/12/18 10/12/18 23:29 04:22 04:22 WBC RBC 2.98 L Hgb 8.3 L Hct 25.5 L MCH MCHC RDW 17.7 H Plt Count Lymph % (Auto) [place] % (Auto) Eos % (Auto) Lymph # [place] # Eos # Seg Neutrophils % Seg Neuts % (Manual) Lymphocytes % (Manual) Seg Neutrophils # Seg Neutrophils # Man Lymphocytes # (Manual) POC ABG pH POC ABG pO2 Sodium 146 H 146 H Potassium Chloride 110.6 H 112.8 H Carbon Dioxide BUN 30 H 29 H Creatinine Glucose 102 H POC Glucose Lactic Acid Calcium 8.2 L Phosphorus 4.60 H Magnesium AST Alkaline Phosphatase Troponin T C-Reactive Protein Albumin Cholesterol LDL Cholesterol Direct HDL Cholesterol Urine WBC (Auto) Urine Creatinine Vancomycin Trough Crossmatch Allied health notes reviewed: nursing
[2018-10-13] MEDS: KEPPRA PO SCH ×2 (09:57→22:42)
[2018-10-13] MEDS: HCTZ PO SCH (09:57)
[2018-10-13] MEDS: ZINC SULFATE PO SCH (09:57)
[2018-10-13] MEDS: THERAGRAN Tab PO SCH (09:57)
[2018-10-13] MEDS: COREG PO SCH ×2 (09:57→22:43)
[2018-10-13] MEDS: VITAMIN C FEEDTUBE SCH ×2 (09:58→22:43)
[2018-10-13] MEDS: HEPARIN SUB-Q SCH ×2 (09:58→22:42)
[2018-10-13] MEDS: PEPCID PO SCH (09:58)
[2018-10-13] MEDS: TYLENOL FEEDTUBE PRN ×2 (09:58→22:43)
[2018-10-13] MEDS: SODIUM CHLORIDE FLUSH SYRINGE 10 ML IV SCH ×2 (10:00→22:44)
--- NOTE | 2018-10-13 12:15 | Progress Note ---
Assessment and Plan Assessment and plan: Severe sepsis with shock, POA due to bacteremia, UTI and RUL PNA continue Sepsis Protocol: IV antibiotic therapy, IVF resuscitation therapy, MRSA on Blood cultures, s/p IV pressors , ID consulted Per ID: - Continue vancomycin now for MRSA bacteremia. So far no clear source for MRSA bacteremia but suspected possible infected decubitus ulcer - treated with meropenem for 5 days to cover UTI MRSA bacteremia - possible source infected decubitus ulcer - cont vanc, ID following, 2d echo showed no vegetation Decubitus ulcer, multiple with different stages - cont wound care, abx per ID - Could be the source for bacteremia, ID ordered for WBC scan but could not be done because of his chronic contracture/anatomical position Anemia, s/p 2 units blood transfusion, likely AOCD and severe sepsis - stool for occult blood negative, cont to monitor hgb 8.3 after 1 Units PRBC Hyperkalemia. Resolved after kayexalate, Insulin, Dextrose, MÓNICA with vasomotor nephropathy renal function stable with IVF resuscitation therapy, monitor uop q shift, nephrology consulted in ED. Fever. ID following Right upper lobe Pneumonia, suspect aspiration Treated with IV antibiotic therapy, supplemental oxygen, pulse oximetry, Elevated troponin Likely due to sepsis with low blood pressure and renal failure Monitor with Serial cardiac enzymes, Cardiology consulted in ED, No EKG changes, supportive care, NSVT Increase Coreg to 6.25mg bid UTI (lower urinary tract infection) Treated with IV antibiotic therapy, IV fluids Acute hypoxic Respiratory failure Likely due to underlying pneumonia Continue to provide Supplemental oxygen, nebulizer therapy, NIPPV as clinically indicated, pulse oximetry, Moderate to severe protein calorie malnutrition - consulted dietary, continue tube feeding for now hypernatremia, on hypotonic saline Hypertension, placed on clonidine patch DVT prophylaxis SCD to BLE while in bed, prophylactic heparin Disposition: wait for final ID recommendation for d/c abx coverage History Interval history: patient with MRSA bacteremia Fever Called for non sustained v tach Hospitalist Physical - Physical exam Narrative exam: Gen: Not in acute distress, lying in bed, HEENT: Normocephalic, atraumatic Neck: supple, no JVD Heart: S1 and S2 reg, no murmurs, rubs or gallop Lungs: Clear, no crackles, no wheeze Abd: soft, non tender, non distended, normal BS Ext: No edema, no clubbing, no cyanosis, Neuro: Lethargic, - Constitutional Vitals: Temp Pulse Resp BP Pulse Ox 100.9 F H 71 18 139/81 98 10/13/18 08:52 10/13/18 09:57 10/13/18 08:52 10/13/18 09:57 10/13/18 08:52 General appearance: Present: no acute distress Results - Labs CBC & Chem 7: 10/12/18 04:22 10/12/18 04:22 Labs: Laboratory Last Values WBC 9.5 K/mm3 (4.5-11.0) 10/12/18 04:22 RBC 2.98 M/mm3 (3.65-5.03) L 10/12/18 04:22 Hgb 8.3 gm/dl (11.8-15.2) L 10/12/18 04:22 Hct 25.5 % (35.5-45.6) L 10/12/18 04:22 MCV 86 fl (84-94) 10/12/18 04:22 MCH 28 pg (28-32) 10/12/18 04:22 MCHC 33 % (32-34) 10/12/18 04:22 RDW 17.7 % (13.2-15.2) H 10/12/18 04:22 Plt Count 383 K/mm3 (140-440) 10/12/18 04:22 Lymph % (Auto) 5.7 % (13.4-35.0) L 10/10/18 09:02 Citrus % (Auto) 8.5 % (0.0-7.3) H 10/10/18 09:02 Eos % (Auto) 1.6 % (0.0-4.3) 10/10/18 09:02 Baso % (Auto) 0.3 % (0.0-1.8) 10/10/18 09:02 Lymph # 0.8 K/mm3 (1.2-5.4) L 10/10/18 09:02 [place]rus # 1.1 K/mm3 (0.0-0.8) H 10/10/18 09:02 Eos # 0.2 K/mm3 (0.0-0.4) 10/10/18 09:02 Baso # 0.0 K/mm3 (0.0-0.1) 10/10/18 09:02 Add Manual Diff Complete 10/02/18 04:45 Total Counted 100 10/02/18 04:45 Seg Neutrophils % 83.9 % (40.0-70.0) H 10/10/18 09:02 Seg Neuts % (Manual) 78.0 % (40.0-70.0) H 10/02/18 04:45 14.0 % 10/02/18 04:45 5.0 % (13.4-35.0) L 10/02/18 04:45 Reactive Lymphs % (Man) 0 % 10/02/18 04:45 2.0 % (0.0-7.3) 10/02/18 04:45 1.0 % (0.0-4.3) 10/02/18 04:45 0 % (0.0-1.8) 10/02/18 04:45 0 % 10/02/18 04:45 0 % 10/02/18 04:45 0 % 10/02/18 04:45 0 % 10/02/18 04:45 Nucleated RBC % Not Reportable 10/02/18 04:45 Seg Neutrophils # 11.4 K/mm3 (1.8-7.7) H 10/10/18 09:02 Seg Neutrophils # Man 14.3 K/mm3 (1.8-7.7) H 10/02/18 04:45 Band Neutrophils # 2.6 K/mm3 10/02/18 04:45 0.9 K/mm3 (1.2-5.4) L 10/02/18 04:45 Abs React Lymphs (Man) 0.0 K/mm3 10/02/18 04:45 0.4 K/mm3 (0.0-0.8) 10/02/18 04:45 0.2 K/mm3 (0.0-0.4) 10/02/18 04:45 0.0 K/mm3 (0.0-0.1) 10/02/18 04:45 0.0 K/mm3 10/02/18 04:45 0.0 K/mm3 10/02/18 04:45 0.0 K/mm3 10/02/18 04:45 Blast Cells # 0.0 K/mm3 10/02/18 04:45 WBC Morphology Not Reportable 10/02/18 04:45 WBC Morphology TNR 10/02/18 04:45 Hypersegmented Neuts Not Reportable 10/02/18 04:45 Hyposegmented Neuts Not Reportable 10/02/18 04:45 Hypogranular Neuts Not Reportable 10/02/18 04:45 Not Reportable 10/02/18 04:45 Not Reportable 10/02/18 04:45 Not Reportable 10/02/18 04:45 Not Reportable 10/02/18 04:45 Not Reportable 10/02/18 04:45 Not Reportable 10/02/18 04:45 Consistent w auto 10/02/18 04:45 Not Reportable 10/02/18 04:45 Plt Clumps, EDTA Not Reportable 10/02/18 04:45 Not Reportable 10/02/18 04:45 Not Reportable 10/02/18 04:45 Not Reportable 10/02/18 04:45 Plt Morphology Comment Not Reportable 10/02/18 04:45 RBC Morphology Not Reportable 10/02/18 04:45 Dimorphic RBCs Not Reportable 10/02/18 04:45 Few 10/02/18 04:45 Not Reportable 10/02/18 04:45 Not Reportable 10/02/18 04:45 1+ 10/02/18 04:45 Not Reportable 10/02/18 04:45 2+ 10/02/18 04:45 Not Reportable 10/02/18 04:45 Not Reportable 10/02/18 04:45 Not Reportable 10/02/18 04:45 Not Reportable 10/02/18 04:45 Not Reportable 10/02/18 04:45 Not Reportable 10/02/18 04:45 Not Reportable 10/02/18 04:45 Not Reportable 10/02/18 04:45 Not Reportable 10/02/18 04:45 Not Reportable 10/02/18 04:45 Not Reportable 10/02/18 04:45 Not Reportable 10/02/18 04:45 Not Reportable 10/02/18 04:45 Acanthocytes (Spur) Not Reportable 10/02/18 04:45 Rouleaux Not Reportable 10/02/18 04:45 Not Reportable 10/02/18 04:45 Not Reportable 10/02/18 04:45 Not Reportable 10/02/18 04:45 Not Reportable 10/02/18 04:45 Hem Pathologist Commnt No 10/02/18 04:45 POC ABG pH 7.480 (7.35-7.45) H 10/01/18 18:12 POC ABG pO2 64 (80-105) L 10/01/18 18:12 POC ABG HCO3 21.0 (22-26 mml/L) 10/01/18 18:12 POC ABG Total CO2 22 (23-27mmol/L) 10/01/18 18:12 POC ABG O2 Sat 94 10/01/18 18:12 POC ABG Base Excess -3 ((-2) - (+3)mmol/L) 10/01/18 18:12 32 % 10/01/18 18:12 Sodium 146 mmol/L (137-145) H 10/12/18 04:22 Potassium 5.0 mmol/L (3.6-5.0) 10/12/18 04:22 Chloride 112.8 mmol/L (98-107) H 10/12/18 04:22 Carbon Dioxide 23 mmol/L (22-30) 10/12/18 04:22 15 mmol/L 10/12/18 04:22 BUN 29 mg/dL (9-20) H 10/12/18 04:22 0.9 mg/dL (0.8-1.5) 10/12/18 04:22 Estimated GFR > 60 ml/min 10/12/18 04:22 32 % 10/12/18 04:22 Glucose 102 mg/dL (75-100) H 10/12/18 04:22 POC Glucose 99 (70-105) 10/07/18 15:25 Lactic Acid 1.70 mmol/L (0.7-2.0) 10/03/18 22:45 Calcium 8.2 mg/dL (8.4-10.2) L 10/12/18 04:22 Phosphorus 4.50 mg/dL (2.5-4.5) 10/12/18 04:22 Magnesium 2.30 mg/dL (1.7-2.3) 10/12/18 04:22 < 0.20 mg/dL (0.1-1.2) 10/04/18 07:00 < 0.2 mg/dL (0-0.2) 10/04/18 07:00 0.0 mg/dL 10/04/18 07:00 AST 25 units/L (5-40) 10/04/18 07:00 ALT 15 units/L (7-56) 10/04/18 07:00 124 units/L (35-129) 10/04/18 07:00 0.336 ng/mL (0.00-0.029) H* 10/01/18 23:48 11.40 mg/dL (0.00-1.30) H 10/08/18 05:07 6.5 g/dL (6.3-8.2) 10/04/18 07:00 1.5 g/dL (3.9-5) L 10/04/18 07:00 0.3 % 10/04/18 07:00 Triglycerides 111 mg/dL (2-149) 10/01/18 14:29 Cholesterol 36 mg/dL (50-199) L 10/01/18 14:29 6 mg/dL (50-130) L 10/01/18 14:29 21 mg/dL (40-59) L 10/01/18 14:29 1.71 % 10/01/18 14:29 Free PSA See scanned result 10/01/18 17:53 % Free PSA Calc See scanned result 10/01/18 17:53 Total PSA See scanned result 10/01/18 17:53 TSH 0.870 mlU/mL (0.270-4.200) 10/01/18 18:23 Free T4 1.05 ng/dL (0.76-1.46) 10/01/18 18:23 [place] (Yellow) 10/01/18 15:13 Cloudy (Clear) 10/01/18 15:13 5.0 (5.0-7.0) 10/01/18 15:13 Ur Specific [place] 1.023 (1.003-1.030) 10/01/18 15:13 100 mg/dl mg/dL (Negative) 10/01/18 15:13 Neg mg/dL (Negative) 10/01/18 15:13 Tr mg/dL (Negative) 10/01/18 15:13 Neg (Negative) 10/01/18 15:13 Neg (Negative) 10/01/18 15:13 Neg (Negative) 10/01/18 15:13 < 2.0 mg/dL (<2.0) 10/01/18 15:13 Ur Leukocyte Esterase Lg (Negative) 10/01/18 15:13 > 182.0 /HPF (0.0-6.0) H 10/01/18 15:13 12.0 /HPF (0.0-6.0) 10/01/18 15:13 4+ /HPF (Negative) 10/01/18 15:13 3+ /HPF 10/01/18 15:13 74.7 mg/dL (0.1-20.0) H 10/02/18 04:45 21 mmol/L 10/02/18 04:45 Vancomycin Trough 23.0 ug/mL (5.0-20.0) H 10/07/18 08:34 Blood Type O POSITIVE 10/11/18 09:09 Antibody Screen Negative 10/11/18 09:09 Crossmatch See Detail 10/11/18 09:09 Active Medications - Current Medications Current Medications: Generic Name Dose Route Start Last Admin Trade Name Freq PRN Reason Stop Dose Admin Acetaminophen 650 mg 10/01/18 15:32 10/13/18 09:58 Tylenol FEEDTUBE 650 mg Q6H PRN Administration Pain, Moderate (4-6) Albuterol 2.5 mg 10/01/18 17:40 10/04/18 21:02 Proventil IH 2.5 mg Q3HRT PRN Administration Shortness Of Breath Lipase/Protease/Amylase 1 each 10/04/18 14:58 Pancrenomi Moore 10,500 Unit FEEDTUBE PRN PRN For Clogged Feeding Tube Ascorbic Acid 500 mg 10/04/18 10:00 10/13/18 09:58 Vitamin C FEEDTUBE 500 mg BID NORA Administration Atorvastatin Calcium 40 mg 10/01/18 22:00 10/12/18 22:48 Lipitor FEEDTUBE 40 mg QHS NORA Administration Carvedilol 3.125 mg 10/09/18 16:00 10/13/18 09:57 Coreg PO 3.125 mg BID NORA Administration Clonidine HCl 0.2 mg 10/08/18 10:00 10/08/18 09:52 Catapres-Tts Patch TD 0.2 mg Tu NORA Administration Famotidine 20 mg 10/03/18 12:00 10/13/18 09:58 Pepcid PO 20 mg DAILY NORA Administration Heparin Sodium (Porcine) 5,000 unit 10/01/18 22:00 10/13/18 09:58 Heparin SUB-Q 5,000 unit Q12HR NORA Administration Hydralazine HCl 10 mg 10/07/18 15:12 10/07/18 18:00 Apresoline IV 10 mg Q4HR PRN Administration Blood Pressure Hydrochlorothiazide 25 mg 10/11/18 09:00 10/13/18 09:57 Hctz PO 25 mg QDAY NORA Administration Vancomycin HCl 1 gm in 250 mls @ 167.007 mls/hr 10/08/18 10:00 10/12/18 10:53 Vancomycin/Ns 1 Gm/250 Ml IV 11/12/18 09:59 167.007 mls/hr Q48HR NORA Administration Insulin Human Lispro 0 unit 10/13/18 12:00 Humalog SUB-Q Q6HR [facility] Protocol Levetiracetam 500 mg 10/01/18 22:00 10/13/18 09:57 Keppra PO 500 mg BID NORA Administration Multivitamins 1 each 10/02/18 10:00 10/13/18 09:57 Theragran Tab PO 1 each DAILY NORA Administration Oxycodone/Acetaminophen 1 tab 10/02/18 20:16 10/08/18 23:23 Percocet 5/325 PO 1 tab Q4H PRN Administration Pain, Moderate (4-6) Simple Syrup 15 ml 10/02/18 10:35 Simple Syrup FEEDTUBE PRN PRN Hypoglycemia Simple Syrup 30 ml 10/02/18 10:35 Simple Syrup FEEDTUBE PRN PRN Hypoglycemia Sodium Bicarbonate 325 mg 10/02/18 10:35 Sodium Bicarbonate FEEDTUBE PRN PRN For Clogged Feeding Tube Sodium Chloride 10 ml 10/01/18 22:00 10/12/18 22:49 Sodium Chloride Flush Syringe 10 Ml IV 10 ml BID NORA Administration Sodium Chloride 10 ml 10/01/18 17:40 10/05/18 21:30 Sodium Chloride Flush Syringe 10 Ml IV 10 ml PRN PRN Administration LINE FLUSH Zinc Sulfate 220 mg 10/02/18 10:00 10/13/18 09:57 Zinc Sulfate PO 220 mg QDAY NORA Administration Nutrition/Malnutrition Assess - Dietary Evaluation Nutrition/Malnutrition Findings: Nutrition Notes Start: 10/02/18 10:21 Freq: Status: Active Protocol: Document 10/07/18 15:09 RM (Rec: 10/07/18 15:10 RM [id number]) Nutrition Notes Initial or Follow up Reassessment Current Diagnosis Acute Kidney Injury,COPD, Decubitus(Pressure Ulcer), Diabetes,Sepsis,Hypertension, Heart Failure,Stroke Other Pertinent Diagnosis UTI, pneu, dementia, multiple PU Current Diet Glucerna 1.2 at 60 ml/hr Labs/Tests Na 144 Pertinent Medications Reviewed Height 5 ft 8 in Weight 68 kg [place] Body Weight (kg) 70.00 BMI 22.8 Weight change and time frame Current wt obtained from [facility]. Wt gain possibly d/t fluid change. Subjective/Other Information Observed Glucerna 1.2 infusing at 60 ml/hr. Per nurse pt is tolerating TF. Percent of energy/protein needs met: 94%/100% Burn Absent Trauma Absent #1 Nutrition Diagnosis Malnutrition Diagnosis Progress(for reassessment Continues documentation) Is patient on ventilator? No Is Patient Ambulatory and/or Out of Bed No REE-([facility]-confined to bed) 1715.112 Kcal/Kg value to use for calculation 27 Approximate Energy Requirements Using 1836 kcal/Kg Calculation Used for Recommendations Kcal/kg Additional Notes Protein needs are 64-140g (1.2 -2g/kg) Fluid needs are 1ml/kcal Nutrition Intervention Nutrition Support: Glucerna 1.2 at 60ml/hr Flush with 150 ml q4h. Kcal 1,728 Protein (gm) 86 Fluid (mL) 1,163 Goal #1 Continue to meet at least 80% of kcal and protein needs Goal #2 Wound healing Anticipated Discharge Needs: Unable to determine at this time Follow-Up By: 10/15/18 Additional Comments Follow for TF tolerance
[2018-10-13] MEDS: HumaLOG SUB-Q SCH ×2 (12:25→17:57)
--- NOTE | 2018-10-13 14:00 | Progress Note ---
Assessment and Plan 1. Acute kidney injury: Vasomotor / hemodynamic MÓNICA in the setting of hypotension, sepsis and volume depletion. Renal function is better. Monitor renal function. Avoid nephrotoxic agents. Meds dosage based on GFR. 2. FEN: Hyperkalemia, Kayexalate. Hypernatremia, stable. Monitor lytes. 3. Sepsis with shock: MRSA bacteremia. Off pressors. 4. Anemia: PRBC. 5. Multiple decubitus wound: Chronic bedridden status. 6. Encephalopathy. Subjective Date of service: 10/13/18 Principal diagnosis: Septic shock; Ac encephalopathy; Multiple decubitus ulcers; Ac renal failur Interval history: Patient was seen and examined at the bedside. Objective - Vital Signs Vital signs: Vital Signs - 12hr 10/13/18 10/13/18 10/13/18 03:51 08:20 08:52 Temperature 99.5 F 100.9 F H Pulse Rate 107 H 112 H Respiratory 18 18 Rate Blood Pressure 148/85 139/81 O2 Sat by Pulse 96 97 98 Oximetry 10/13/18 10/13/18 10/13/18 09:57 10:00 11:57 Temperature 99.0 F Pulse Rate 71 109 H 101 H Respiratory 20 16 Rate Blood Pressure 139/81 159/90 O2 Sat by Pulse 96 Oximetry - General Appearance General appearance: well-developed, appears stated age, other (no distress) EENT: ATNC Respiratory: Present: Clear to Ascultation Cardiology: regular, S1S2, no murmurs Gastrointestinal: normoactive bowel sounds, no tenderness, other (PEG tube, Chaudhary catheter) Integumentary: ulcer, decubiti Neurologic: other (opens eyes, not following any command) Musculoskeletal: other (dependent edema noted, contractures noted) - Lab 10/15/18 05:32 10/15/18 05:32 Most recent lab results Calcium 8.2 mg/dL (8.4-10.2) L 10/12/18 04:22 Phosphorus 4.50 mg/dL (2.5-4.5) 10/12/18 04:22 Magnesium 2.30 mg/dL (1.7-2.3) 10/12/18 04:22 74.7 mg/dL (0.1-20.0) H 10/02/18 04:45 21 mmol/L 10/02/18 04:45 Medications & Allergies - Medications Allergies/Adverse Reactions: Allergies lisinopril Allergy (Verified 10/01/18 15:17) Unknown tramadol Allergy (Verified 07/29/18 18:39) Unknown Home Medications: Home Medications Medication Instructions Recorded Confirmed Last Taken Type Multivit-Min/Iron Fum/Folic AC 1 each PO DAILY 03/24/18 10/03/18 Unknown History [Eesnw-Siyofyu-[place]om[place]k Tablet] Acetaminophen 650 mg NGTUBE Q6H PRN 07/30/18 10/03/18 Unknown History AtorvaSTATin [Lipitor] 40 mg NGTUBE QHS 07/30/18 10/03/18 Unknown History Dutasteride 0.5 mg NGTUBE QAM 07/30/18 10/03/18 Unknown History Ipratropium/Albuterol Sulfate 1 ampul IH BID 07/30/18 10/03/18 Unknown History [DUONEB *Not for PRN Use*] Lisinopril [Zestril TAB] 40 mg PO QDAY 07/30/18 10/03/18 Unknown History Tamsulosin [Flomax] 0.4 mg PO QDAY 07/30/18 10/03/18 Unknown History Vit C/Ascorbate Calcium,Sodium 500 mg NGTUBE BID 07/30/18 10/03/18 Unknown History [Vitamin C 500 mg/15 ml Liquid] Zinc Sulfate 220 mg NGTUBE QDAY 07/30/18 10/03/18 Unknown History levETIRAcetam [Keppra INJ] 500 mg PO Q12H 07/30/18 10/03/18 Unknown History Carvedilol [Coreg] 3.125 mg PO BID #60 tablet 08/23/18 10/03/18 Unknown Rx Furosemide [Lasix] 20 mg PO QDAY #30 tablet 08/23/18 10/03/18 Unknown Rx Oxycodone HCl/Acetaminophen 1 each PO Q8HR PRN #14 tablet 08/23/18 10/03/18 Unknown Rx [Percocet 7.5/325 mg] Phosphorus #1 [K-Phos Neutral] 250 mg PO QID #30 tablet 08/23/18 10/03/18 U nknown Rx hydroCHLOROthiazide [HCTZ] 12.5 mg PO QDAY #30 tablet 08/23/18 10/03/18 Unknown Rx Active Medications: Generic Name Dose Route Start Last Admin Trade Name Freq PRN Reason Stop Dose Admin Acetaminophen 650 mg 10/01/18 15:32 10/13/18 09:58 Tylenol FEEDTUBE 650 mg Q6H PRN Administration Pain, Moderate (4-6) Albuterol 2.5 mg 10/01/18 17:40 10/04/18 21:02 Proventil IH 2.5 mg Q3HRT PRN Administration Shortness Of Breath Lipase/Protease/Amylase 1 each 10/04/18 14:58 Pancreaze 10,500 Unit FEEDTUBE PRN PRN For Clogged Feeding Tube Ascorbic Acid 500 mg 10/04/18 10:00 10/13/18 09:58 Vitamin C FEEDTUBE 500 mg BID NORA Administration Atorvastatin Calcium 40 mg 10/01/18 22:00 10/12/18 22:48 Lipitor FEEDTUBE 40 mg QHS NORA Administration Carvedilol 3.125 mg 10/09/18 16:00 10/13/18 09:57 Coreg PO 3.125 mg BID NORA Administration Clonidine HCl 0.2 mg 10/08/18 10:00 10/08/18 09:52 Catapres-Tts Patch TD 0.2 mg Tu NORA Administration Famotidine 20 mg 10/03/18 12:00 10/13/18 09:58 Pepcid PO 20 mg DAILY NORA Administration Heparin Sodium (Porcine) 5,000 unit 10/01/18 22:00 10/13/18 09:58 Heparin SUB-Q 5,000 unit Q12HR NORA Administration Hydralazine HCl 10 mg 10/07/18 15:12 10/07/18 18:00 Apresoline IV 10 mg Q4HR PRN Administration Blood Pressure Hydrochlorothiazide 25 mg 10/11/18 09:00 10/13/18 09:57 Hctz PO 25 mg QDAY NORA Administration Vancomycin HCl 1 gm in 250 mls @ 167.007 mls/hr 10/08/18 10:00 10/12/18 10:53 Vancomycin/Ns 1 Gm/250 Ml IV 11/12/18 09:59 167.007 mls/hr Q48HR NORA Administration Insulin Human Lispro 0 unit 10/13/18 12:00 10/13/18 12:25 Humalog SUB-Q Not Given Q6HR NORA Protocol Levetiracetam 500 mg 10/01/18 22:00 10/13/18 09:57 Keppra PO 500 mg BID NORA Administration Multivitamins 1 each 10/02/18 10:00 10/13/18 09:57 Theragran Tab PO 1 each DAILY NORA Administration Oxycodone/Acetaminophen 1 tab 10/02/18 20:16 10/08/18 23:23 Percocet 5/325 PO 1 tab Q4H PRN Administration Pain, Moderate (4-6) Simple Syrup 15 ml 10/02/18 10:35 Simple Syrup FEEDTUBE PRN PRN Hypoglycemia Simple Syrup 30 ml 10/02/18 10:35 Simple Syrup FEEDTUBE PRN PRN Hypoglycemia Sodium Bicarbonate 325 mg 10/02/18 10:35 Sodium Bicarbonate FEEDTUBE PRN PRN For Clogged Feeding Tube Sodium Chloride 10 ml 10/01/18 22:00 10/13/18 10:00 Sodium Chloride Flush Syringe 10 Ml IV 10 ml BID NORA Administration Sodium Chloride 10 ml 10/01/18 17:40 10/05/18 21:30 Sodium Chloride Flush Syringe 10 Ml IV 10 ml PRN PRN Administration LINE FLUSH Zinc Sulfate 220 mg 10/02/18 10:00 10/13/18 09:57 Zinc Sulfate PO 220 mg QDAY NORA Administration
[2018-10-13 23:22] LABS: Hematocrit 25.4 % (35.5-45.6); Hemoglobin 8.6 gm/dl (11.8-15.2); Mean Corpuscular HGB Conc 34 % (32-34); Mean Corpuscular Volume 86 fl (84-94); Platelet Count 418 K/mm3 (140-440); Red Blood Count 2.95 M/mm3 (3.65-5.03); Red Cell Distribution Width 18.1 % (13.2-15.2)
[2018-10-13 23:38] LABS: BUN/Creatinine Ratio 30; Blood Urea Nitrogen 30 mg/dL (9-20); Hemolysis Index 0
[2018-10-14] MEDS ORDERED: KIONEX PO ONE ×2 (00:13→22:49)
[2018-10-14] MEDS: HumaLOG SUB-Q SCH ×4 (01:07→18:31)
[2018-10-14 08:04] LABS: BUN/Creatinine Ratio 29; Blood Urea Nitrogen 29 mg/dL (9-20); Calcium 8.6 mg/dL (8.4-10.2); Hemolysis Index 1
[2018-10-14] MEDS: PEPCID PO SCH (10:56)
[2018-10-14] MEDS: HCTZ PO SCH (11:03)
[2018-10-14] MEDS: KEPPRA PO SCH ×2 (11:04→21:09)
[2018-10-14] MEDS: COREG PO SCH ×2 (11:04→21:08)
[2018-10-14] MEDS: THERAGRAN Tab PO SCH (11:04)
[2018-10-14] MEDS: VITAMIN C FEEDTUBE SCH ×2 (11:04→21:09)
[2018-10-14] MEDS: VANCOMYCIN/NS 1 GM/250 ML 1 GM/250 ML BAG IV SCH (11:05)
[2018-10-14] MEDS: SODIUM CHLORIDE FLUSH SYRINGE 10 ML IV SCH ×2 (11:05→21:11)
[2018-10-14] MEDS: ZINC SULFATE PO SCH (11:05)
[2018-10-14] MEDS: HEPARIN SUB-Q SCH ×2 (11:07→21:10)
--- NOTE | 2018-10-14 12:11 | Progress Note ---
Assessment and Plan Assessment and plan: Patient is 67 yo Male Care Home Facility Resident as [facility] with HTN, CVA, Obstructive Uropathy, Contracture, Decubitus Ulcers, HI, DM, OA, Seizure Disorder, COPD, Dementia, Debility, BPH presented to ED for evaluation, As per staff, the patient was found to have decreased responsiveness compared to baseline. Pt seen and evaluated in ED and found to have Sepsis secondary to UTI with concomitant RUL Pneumonia with , Encephalopathy, and symptomatic anemia. Pt admitted to ICU and initiated on Sepsis protocol. Blood cultures grew MRSA. he is to reveive iv vanco until 11/12/18 Severe sepsis with shock, POA due to bacteremia, UTI and RUL PNA continue Sepsis Protocol: IV antibiotic therapy, IVF resuscitation therapy, MRSA on Blood cultures, s/p IV pressors , ID consulted Per ID: - Continue vancomycin now for MRSA bacteremia. So far no clear source for MRSA bacteremia but suspected possible infected decubitus ulcer - treated with meropenem for 5 days to cover UTI MRSA bacteremia - possible source infected decubitus ulcer - cont vanc, ID following, 2d echo showed no vegetation Decubitus ulcer, multiple with different stages - cont wound care, abx per ID - Could be the source for bacteremia, ID ordered for WBC scan but could not be done because of his chronic contracture/anatomical position Anemia, s/p 2 units blood transfusion, likely AOCD and severe sepsis - stool for occult blood negative, cont to monitor hgb 8.3 after 1 Units PRBC Hyperkalemia. Resolved after kayexalate, Insulin, Dextrose, MÓNICA with vasomotor nephropathy renal function stable with IVF resuscitation therapy, monitor uop q shift, nephrology consulted in ED. Fever. ID following Right upper lobe Pneumonia, suspect aspiration Treated with IV antibiotic therapy, supplemental oxygen, pulse oximetry, Elevated troponin Likely due to sepsis with low blood pressure and renal failure Monitor with Serial cardiac enzymes, Cardiology consulted in ED, No EKG changes, supportive care, NSVT Increase Coreg to 6.25mg bid UTI (lower urinary tract infection) Treated with IV antibiotic therapy, IV fluids Acute hypoxic Respiratory failure Likely due to underlying pneumonia Continue to provide Supplemental oxygen, nebulizer therapy, NIPPV as clinically indicated, pulse oximetry, Moderate to severe protein calorie malnutrition - consulted dietary, continue tube feeding for now hypernatremia, on hypotonic saline Hypertension, placed on clonidine patch DVT prophylaxis SCD to BLE while in bed, prophylactic heparin Disposition: discussed with Dr. koroma. for vasc surg to place PICC in neck for iv vanco till 11/12/18 History Interval history: Patient with MRSA bacteremia Fever Non sustained v tach Hospitalist Physical - Physical exam Narrative exam: Gen: Not in acute distress, lying in bed, HEENT: Normocephalic, atraumatic Neck: supple, no JVD Heart: S1 and S2 reg, no murmurs, rubs or gallop Lungs: Clear, no crackles, no wheeze Abd: soft, non tender, non distended, normal BS Ext: No edema, no clubbing, no cyanosis, Neuro: Lethargic, - Constitutional Vitals: Temp Pulse Resp BP Pulse Ox 99.5 F 112 H 18 134/78 98 10/14/18 07:53 10/14/18 11:04 10/14/18 07:53 10/14/18 11:04 10/14/18 08:48 General appearance: Present: no acute distress Results - Labs CBC & Chem 7: 10/13/18 23:00 10/14/18 07:18 Labs: Laboratory Last Values WBC 11.0 K/mm3 (4.5-11.0) 10/13/18 23:00 RBC 2.95 M/mm3 (3.65-5.03) L 10/13/18 23:00 Hgb 8.6 gm/dl (11.8-15.2) L 10/13/18 23:00 Hct 25.4 % (35.5-45.6) L 10/13/18 23:00 MCV 86 fl (84-94) 10/13/18 23:00 MCH 29 pg (28-32) 10/13/18 23:00 MCHC 34 % (32-34) 10/13/18 23:00 RDW 18.1 % (13.2-15.2) H 10/13/18 23:00 Plt Count 418 K/mm3 (140-440) 10/13/18 23:00 Lymph % (Auto) 5.7 % (13.4-35.0) L 10/10/18 09:02 [place] % (Auto) 8.5 % (0.0-7.3) H 10/10/18 09:02 Eos % (Auto) 1.6 % (0.0-4.3) 10/10/18 09:02 Baso % (Auto) 0.3 % (0.0-1.8) 10/10/18 09:02 Lymph # 0.8 K/mm3 (1.2-5.4) L 10/10/18 09:02 [place] # 1.1 K/mm3 (0.0-0.8) H 10/10/18 09:02 Eos # 0.2 K/mm3 (0.0-0.4) 10/10/18 09:02 Baso # 0.0 K/mm3 (0.0-0.1) 10/10/18 09:02 Add Manual Diff Complete 10/02/18 04:45 Total Counted 100 10/02/18 04:45 Seg Neutrophils % 83.9 % (40.0-70.0) H 10/10/18 09:02 Seg Neuts % (Manual) 78.0 % (40.0-70.0) H 10/02/18 04:45 14.0 % 10/02/18 04:45 5.0 % (13.4-35.0) L 10/02/18 04:45 Reactive Lymphs % (Man) 0 % 10/02/18 04:45 2.0 % (0.0-7.3) 10/02/18 04:45 1.0 % (0.0-4.3) 10/02/18 04:45 0 % (0.0-1.8) 10/02/18 04:45 0 % 10/02/18 04:45 0 % 10/02/18 04:45 0 % 10/02/18 04:45 0 % 10/02/18 04:45 Nucleated RBC % Not Reportable 10/02/18 04:45 Seg Neutrophils # 11.4 K/mm3 (1.8-7.7) H 10/10/18 09:02 Seg Neutrophils # Man 14.3 K/mm3 (1.8-7.7) H 10/02/18 04:45 Band Neutrophils # 2.6 K/mm3 10/02/18 04:45 0.9 K/mm3 (1.2-5.4) L 10/02/18 04:45 Abs React Lymphs (Man) 0.0 K/mm3 10/02/18 04:45 0.4 K/mm3 (0.0-0.8) 10/02/18 04:45 0.2 K/mm3 (0.0-0.4) 10/02/18 04:45 0.0 K/mm3 (0.0-0.1) 10/02/18 04:45 0.0 K/mm3 10/02/18 04:45 0.0 K/mm3 10/02/18 04:45 0.0 K/mm3 10/02/18 04:45 Blast Cells # 0.0 K/mm3 10/02/18 04:45 WBC Morphology Not Reportable 10/02/18 04:45 WBC Morphology TNR 10/02/18 04:45 Hypersegmented Neuts Not Reportable 10/02/18 04:45 Hyposegmented Neuts Not Reportable 10/02/18 04:45 Hypogranular Neuts Not Reportable 10/02/18 04:45 Not Reportable 10/02/18 04:45 Not Reportable 10/02/18 04:45 Not Reportable 10/02/18 04:45 Not Reportable 10/02/18 04:45 Not Reportable 10/02/18 04:45 Not Reportable 10/02/18 04:45 Consistent w auto 10/02/18 04:45 Not Reportable 10/02/18 04:45 Plt Clumps, EDTA Not Reportable 10/02/18 04:45 Not Reportable 10/02/18 04:45 Not Reportable 10/02/18 04:45 Not Reportable 10/02/18 04:45 Plt Morphology Comment Not Reportable 10/02/18 04:45 RBC Morphology Not Reportable 10/02/18 04:45 Dimorphic RBCs Not Reportable 10/02/18 04:45 Few 10/02/18 04:45 Not Reportable 10/02/18 04:45 Not Reportable 10/02/18 04:45 1+ 10/02/18 04:45 Not Reportable 10/02/18 04:45 2+ 10/02/18 04:45 Not Reportable 10/02/18 04:45 Not Reportable 10/02/18 04:45 Not Reportable 10/02/18 04:45 Not Reportable 10/02/18 04:45 Not Reportable 10/02/18 04:45 Not Reportable 10/02/18 04:45 Not Reportable 10/02/18 04:45 Not Reportable 10/02/18 04:45 Not Reportable 10/02/18 04:45 Not Reportable 10/02/18 04:45 Not Reportable 10/02/18 04:45 Not Reportable 10/02/18 04:45 Not Reportable 10/02/18 04:45 Acanthocytes (Spur) Not Reportable 10/02/18 04:45 Rouleaux Not Reportable 10/02/18 04:45 Not Reportable 10/02/18 04:45 Not Reportable 10/02/18 04:45 Not Reportable 10/02/18 04:45 Not Reportable 10/02/18 04:45 Hem Pathologist Commnt No 10/02/18 04:45 POC ABG pH 7.480 (7.35-7.45) H 10/01/18 18:12 POC ABG pO2 64 (80-105) L 10/01/18 18:12 POC ABG HCO3 21.0 (22-26 mml/L) 10/01/18 18:12 POC ABG Total CO2 22 (23-27mmol/L) 10/01/18 18:12 POC ABG O2 Sat 94 10/01/18 18:12 POC ABG Base Excess -3 ((-2) - (+3)mmol/L) 10/01/18 18:12 32 % 10/01/18 18:12 Sodium 145 mmol/L (137-145) 10/14/18 07:18 Potassium 5.3 mmol/L (3.6-5.0) H 10/14/18 07:18 Chloride 112.3 mmol/L (98-107) H 10/14/18 07:18 Carbon Dioxide 23 mmol/L (22-30) 10/14/18 07:18 15 mmol/L 10/14/18 07:18 BUN 29 mg/dL (9-20) H 10/14/18 07:18 1.0 mg/dL (0.8-1.5) 10/14/18 07:18 Estimated GFR > 60 ml/min 10/14/18 07:18 29 % 10/14/18 07:18 Glucose 106 mg/dL (75-100) H 10/14/18 07:18 POC Glucose 100 (70-105) 10/14/18 06:20 Lactic Acid 1.70 mmol/L (0.7-2.0) 10/03/18 22:45 Calcium 8.6 mg/dL (8.4-10.2) 10/14/18 07:18 Phosphorus 4.50 mg/dL (2.5-4.5) 10/12/18 04:22 Magnesium 2.30 mg/dL (1.7-2.3) 10/12/18 04:22 < 0.20 mg/dL (0.1-1.2) 10/04/18 07:00 < 0.2 mg/dL (0-0.2) 10/04/18 07:00 0.0 mg/dL 10/04/18 07:00 AST 25 units/L (5-40) 10/04/18 07:00 ALT 15 units/L (7-56) 10/04/18 07:00 124 units/L (35-129) 10/04/18 07:00 0.336 ng/mL (0.00-0.029) H* 10/01/18 23:48 11.40 mg/dL (0.00-1.30) H 10/08/18 05:07 6.5 g/dL (6.3-8.2) 10/04/18 07:00 1.5 g/dL (3.9-5) L 10/04/18 07:00 0.3 % 10/04/18 07:00 Triglycerides 111 mg/dL (2-149) 10/01/18 14:29 Cholesterol 36 mg/dL (50-199) L 10/01/18 14:29 6 mg/dL (50-130) L 10/01/18 14:29 21 mg/dL (40-59) L 10/01/18 14:29 1.71 % 10/01/18 14:29 Free PSA See scanned result 10/01/18 17:53 % Free PSA Calc See scanned result 10/01/18 17:53 Total PSA See scanned result 10/01/18 17:53 TSH 0.870 mlU/mL (0.270-4.200) 10/01/18 18:23 Free T4 1.05 ng/dL (0.76-1.46) 10/01/18 18:23 [place] (Yellow) 10/01/18 15:13 Cloudy (Clear) 10/01/18 15:13 5.0 (5.0-7.0) 10/01/18 15:13 Ur Specific [place] 1.023 (1.003-1.030) 10/01/18 15:13 100 mg/dl mg/dL (Negative) 10/01/18 15:13 Neg mg/dL (Negative) 10/01/18 15:13 Tr mg/dL (Negative) 10/01/18 15:13 Neg (Negative) 10/01/18 15:13 Neg (Negative) 10/01/18 15:13 Neg (Negative) 10/01/18 15:13 < 2.0 mg/dL (<2.0) 10/01/18 15:13 Ur Leukocyte Esterase Lg (Negative) 10/01/18 15:13 > 182.0 /HPF (0.0-6.0) H 10/01/18 15:13 12.0 /HPF (0.0-6.0) 10/01/18 15:13 4+ /HPF (Negative) 10/01/18 15:13 3+ /HPF 10/01/18 15:13 74.7 mg/dL (0.1-20.0) H 10/02/18 04:45 21 mmol/L 10/02/18 04:45 Vancomycin Trough 16.1 ug/mL (5.0-20.0) 10/14/18 07:18 Blood Type O POSITIVE 10/11/18 09:09 Antibody Screen Negative 10/11/18 09:09 Crossmatch See Detail 10/11/18 09:09 Active Medications - Current Medications Current Medications: Generic Name Dose Route Start Last Admin Trade Name Freq PRN Reason Stop Dose Admin Acetaminophen 650 mg 10/01/18 15:32 10/13/18 22:43 Tylenol FEEDTUBE 650 mg Q6H PRN Administration Pain, Moderate (4-6) Albuterol 2.5 mg 10/01/18 17:40 10/04/18 21:02 Proventil IH 2.5 mg Q3HRT PRN Administration Shortness Of Breath Lipase/Protease/Amylase 1 each 10/04/18 14:[address] 10,500 Unit FEEDTUBE PRN PRN For Clogged Feeding Tube Ascorbic Acid 500 mg 10/04/18 10:00 10/14/18 11:04 Vitamin C FEEDTUBE 500 mg BID NORA Administration Atorvastatin Calcium 40 mg 10/01/18 22:00 10/13/18 22:43 Lipitor FEEDTUBE 40 mg QHS NORA Administration Carvedilol 6.25 mg 10/13/18 22:00 10/14/18 11:04 Coreg PO 6.25 mg BID NORA Administration Clonidine HCl 0.2 mg 10/08/18 10:00 10/08/18 09:52 Catapres-Tts Patch TD 0.2 mg Tu NORA Administration Famotidine 20 mg 10/03/18 12:00 10/14/18 10:56 Pepcid PO 20 mg DAILY NORA Administration Heparin Sodium (Porcine) 5,000 unit 10/01/18 22:00 10/14/18 11:07 Heparin SUB-Q 5,000 unit Q12HR NORA Administration Hydralazine HCl 10 mg 10/07/18 15:12 10/07/18 18:00 Apresoline IV 10 mg Q4HR PRN Administration Blood Pressure Hydrochlorothiazide 25 mg 10/11/18 09:00 10/14/18 11:03 Hctz PO 25 mg QDAY NORA Administration Vancomycin HCl 1 gm in 250 mls @ 167.007 mls/hr 10/08/18 10:00 10/14/18 11:05 Vancomycin/Ns 1 Gm/250 Ml IV 11/12/18 09:59 167.007 mls/hr Q48HR NORA Administration Insulin Human Lispro 0 unit 10/13/18 12:00 10/14/18 06:24 Humalog SUB-Q Not Given Q6HR [facility] Protocol Levetiracetam 500 mg 10/01/18 22:00 10/14/18 11:04 Keppra PO 500 mg BID NORA Administration Multivitamins 1 each 10/02/18 10:00 10/14/18 11:04 Theragran Tab PO 1 each DAILY NORA Administration Oxycodone/Acetaminophen 1 tab 10/02/18 20:16 10/08/18 23:23 Percocet 5/325 PO 1 tab Q4H PRN Administration Pain, Moderate (4-6) Simple Syrup 15 ml 10/02/18 10:35 Simple Syrup FEEDTUBE PRN PRN Hypoglycemia Simple Syrup 30 ml 10/02/18 10:35 Simple Syrup FEEDTUBE PRN PRN Hypoglycemia Sodium Bicarbonate 325 mg 10/02/18 10:35 Sodium Bicarbonate FEEDTUBE PRN PRN For Clogged Feeding Tube Sodium Chloride 10 ml 10/01/18 22:00 10/14/18 11:05 Sodium Chloride Flush Syringe 10 Ml IV 10 ml BID NORA Administration Sodium Chloride 10 ml 10/01/18 17:40 10/05/18 21:30 Sodium Chloride Flush Syringe 10 Ml IV 10 ml PRN PRN Administration LINE FLUSH Sodium Polystyrene Sulfonate 30 gm 10/14/18 12:00 Kionex PO 10/14/18 18:01 Q6HR NORA Zinc Sulfate 220 mg 10/02/18 10:00 10/14/18 11:05 Zinc Sulfate PO 220 mg QDAY NORA Administration Nutrition/Malnutrition Assess - Dietary Evaluation Nutrition/Malnutrition Findings: Nutrition Notes Start: 10/02/18 10:21 Freq: Status: Active Protocol: Document 10/07/18 15:09 RM (Rec: 10/07/18 15:10 RM [id number]) Nutrition Notes Initial or Follow up Reassessment Current Diagnosis Acute Kidney Injury,COPD, Decubitus(Pressure Ulcer), Diabetes,Sepsis,Hypertension, Heart Failure,Stroke Other Pertinent Diagnosis UTI, pneu, dementia, multiple PU Current Diet Glucerna 1.2 at 60 ml/hr Labs/Tests Na 144 Pertinent Medications Reviewed Height 5 ft 8 in Weight 68 kg [place] Body Weight (kg) 70.00 BMI 22.8 Weight change and time frame Current wt obtained from [facility]. Wt gain possibly d/t fluid change. Subjective/Other Information Observed Glucerna 1.2 infusing at 60 ml/hr. Per nurse pt is tolerating TF. Percent of energy/protein needs met: 94%/100% Burn Absent Trauma Absent #1 Nutrition Diagnosis Malnutrition Diagnosis Progress(for reassessment Continues documentation) Is patient on ventilator? No Is Patient Ambulatory and/or Out of Bed No REE-([facility]-confined to bed) 1715.112 Kcal/Kg value to use for calculation 27 Approximate Energy Requirements Using 1836 kcal/Kg Calculation Used for Recommendations Kcal/kg Additional Notes Protein needs are 64-140g (1.2 -2g/kg) Fluid needs are 1ml/kcal Nutrition Intervention Nutrition Support: Glucerna 1.2 at 60ml/hr Flush with 150 ml q4h. Kcal 1,728 Protein (gm) 86 Fluid (mL) 1,163 Goal #1 Continue to meet at least 80% of kcal and protein needs Goal #2 Wound healing Anticipated Discharge Needs: Unable to determine at this time Follow-Up By: 10/15/18 Additional Comments Follow for TF tolerance
[2018-10-14] MEDS: KIONEX PO SCH ×2 (13:41→18:31)
--- NOTE | 2018-10-14 14:36 | Progress Note ---
Assessment and Plan 1. Acute kidney injury: Vasomotor / hemodynamic MÓNICA in the setting of hypotension, sepsis and volume depletion. Renal function is better. Monitor renal function. Avoid nephrotoxic agents. Meds dosage based on GFR. 2. FEN: Hyperkalemia, Kayexalate. Hypernatremia, stable. Monitor lytes. 3. Sepsis with shock: MRSA bacteremia. Off pressors. 4. Anemia: PRBC. 5. Multiple decubitus wound: Chronic bedridden status. 6. Encephalopathy. Subjective Date of service: 10/14/18 Principal diagnosis: Septic shock; Ac encephalopathy; Multiple decubitus ulcers; Ac renal failur Interval history: Patient was seen and examined at the bedside. Objective - Vital Signs Vital signs: Vital Signs - 12hr 10/14/18 10/14/18 10/14/18 04:38 07:53 08:48 Temperature 99.1 F 99.5 F Pulse Rate 95 H 102 H Respiratory 20 18 Rate Blood Pressure 128/76 134/78 O2 Sat by Pulse 99 93 98 Oximetry 10/14/18 10/14/18 10:00 11:04 Temperature Pulse Rate 99 H 112 H Respiratory 20 Rate Blood Pressure 134/78 O2 Sat by Pulse Oximetry - General Appearance General appearance: well-developed, appears stated age, other (not in distress) EENT: ATNC Respiratory: Present: Clear to Ascultation Cardiology: regular, S1S2, no murmurs Gastrointestinal: normoactive bowel sounds, no tenderness, other (PEG tube, Chaudhary catheter) Integumentary: ulcer, decubiti Neurologic: other (opens eyes, not following any command) Musculoskeletal: other (contractures noted, dependent edema noted) - Lab 10/15/18 05:32 10/15/18 05:32 Most recent lab results Calcium 8.6 mg/dL (8.4-10.2) 10/14/18 07:18 Phosphorus 4.50 mg/dL (2.5-4.5) 10/12/18 04:22 Magnesium 2.30 mg/dL (1.7-2.3) 10/12/18 04:22 74.7 mg/dL (0.1-20.0) H 10/02/18 04:45 21 mmol/L 10/02/18 04:45 Medications & Allergies - Medications Allergies/Adverse Reactions: Allergies lisinopril Allergy (Verified 10/01/18 15:17) Unknown tramadol Allergy (Verified 07/29/18 18:39) Unknown Home Medications: Home Medications Medication Instructions Recorded Confirmed Last Taken Type Multivit-Min/Iron Fum/Folic AC 1 each PO DAILY 03/24/18 10/03/18 Unknown History [Ipzul-Nhojmsa-Ciikxzlx Tablet] Acetaminophen 650 mg NGTUBE Q6H PRN 07/30/18 10/03/18 Unknown History AtorvaSTATin [Lipitor] 40 mg NGTUBE QHS 07/30/18 10/03/18 Unknown History Dutasteride 0.5 mg NGTUBE QAM 07/30/18 10/03/18 Unknown History Ipratropium/Albuterol Sulfate 1 ampul IH BID 07/30/18 10/03/18 Unknown History [DUONEB *Not for PRN Use*] Lisinopril [Zestril TAB] 40 mg PO QDAY 07/30/18 10/03/18 Unknown History Tamsulosin [Flomax] 0.4 mg PO QDAY 07/30/18 10/03/18 Unknown History Vit C/Ascorbate Calcium,Sodium 500 mg NGTUBE BID 07/30/18 10/03/18 Unknown History [Vitamin C 500 mg/15 ml Liquid] Zinc Sulfate 220 mg NGTUBE QDAY 07/30/18 10/03/18 Unknown History levETIRAcetam [Keppra INJ] 500 mg PO Q12H 07/30/18 10/03/18 Unknown History Carvedilol [Coreg] 3.125 mg PO BID #60 tablet 08/23/18 10/03/18 Unknown Rx Furosemide [Lasix] 20 mg PO QDAY #30 tablet 08/23/18 10/03/18 Unknown Rx Oxycodone HCl/Acetaminophen 1 each PO Q8HR PRN #14 tablet 08/23/18 10/03/18 Unknown Rx [Percocet 7.5/325 mg] Phosphorus #1 [K-Phos Neutral] 250 mg PO QID #30 tablet 08/23/18 10/03/18 Unknown Rx hydroCHLOROthiazide [HCTZ] 12.5 mg PO QDAY #30 tablet 08/23/18 10/03/18 Unknown Rx Active Medications: Generic Name Dose Route Start Last Admin Trade Name Freq PRN Reason Stop Dose Admin Acetaminophen 650 mg 10/01/18 15:32 10/13/18 22:43 Tylenol FEEDTUBE 650 mg Q6H PRN Administration Pain, Moderate (4-6) Albuterol 2.5 mg 10/01/18 17:40 10/04/18 21:02 Proventil IH 2.5 mg Q3HRT PRN Administration Shortness Of Breath Lipase/Protease/Amylase 1 each 10/04/18 14:58 Pancreaze 10,500 Unit FEEDTUBE PRN PRN For Clogged Feeding Tube Ascorbic Acid 500 mg 10/04/18 10:00 10/14/18 11:04 Vitamin C FEEDTUBE 500 mg BID NORA Administration Atorvastatin Calcium 40 mg 10/01/18 22:00 10/13/18 22:43 Lipitor FEEDTUBE 40 mg QHS NORA Administration Carvedilol 6.25 mg 10/13/18 22:00 10/14/18 11:04 Coreg PO 6.25 mg BID NORA Administration Clonidine HCl 0.2 mg 10/08/18 10:00 10/08/18 09:52 Catapres-Tts Patch TD 0.2 mg Tu NORA Administration Famotidine 20 mg 10/03/18 12:00 10/14/18 10:56 Pepcid PO 20 mg DAILY NORA Administration Heparin Sodium (Porcine) 5,000 unit 10/01/18 22:00 10/14/18 11:07 Heparin SUB-Q 5,000 unit Q12HR NORA Administration Hydralazine HCl 10 mg 10/07/18 15:12 10/07/18 18:00 Apresoline IV 10 mg Q4HR PRN Administration Blood Pressure Hydrochlorothiazide 25 mg 10/11/18 09:00 10/14/18 11:03 Hctz PO 25 mg QDAY NORA Administration Vancomycin HCl 1 gm in 250 mls @ 167.007 mls/hr 10/08/18 10:00 10/14/18 11:05 Vancomycin/Ns 1 Gm/250 Ml IV 11/12/18 09:59 167.007 mls/hr Q48HR NORA Administration Insulin Human Lispro 0 unit 10/13/18 12:00 10/14/18 13:11 Humalog SUB-Q Not Given Q6HR NORA Protocol Levetiracetam 500 mg 10/01/18 22:00 10/14/18 11:04 Keppra PO 500 mg BID NORA Administration Multivitamins 1 each 10/02/18 10:00 10/14/18 11:04 Theragran Tab PO 1 each DAILY NORA Administration Oxycodone/Acetaminophen 1 tab 10/02/18 20:16 10/08/18 23:23 Percocet 5/325 PO 1 tab Q4H PRN Administration Pain, Moderate (4-6) Simple Syrup 15 ml 10/02/18 10:35 Simple Syrup FEEDTUBE PRN PRN Hypoglycemia Simple Syrup 30 ml 10/02/18 10:35 Simple Syrup FEEDTUBE PRN PRN Hypoglycemia Sodium Bicarbonate 325 mg 10/02/18 10:35 Sodium Bicarbonate FEEDTUBE PRN PRN For Clogged Feeding Tube Sodium Chloride 10 ml 10/01/18 22:00 10/14/18 11:05 Sodium Chloride Flush Syringe 10 Ml IV 10 ml BID NORA Administration Sodium Chloride 10 ml 10/01/18 17:40 10/05/18 21:30 Sodium Chloride Flush Syringe 10 Ml IV 10 ml PRN PRN Administration LINE FLUSH Sodium Polystyrene Sulfonate 30 gm 10/14/18 12:00 10/14/18 13:41 Kionex PO 10/14/18 18:01 30 gm Q6HR NORA Administration Zinc Sulfate 220 mg 10/02/18 10:00 10/14/18 11:05 Zinc Sulfate PO 220 mg QDAY NORA Administration
--- NOTE | 2018-10-14 17:46 | Progress Note ---
Assessment and Plan Patient sleeping. Not responding to verbal stimuli. Patient contracted. Patient is on 3 litres O2.O2 saturation 95%. No acute respiratory distress. - Patient Problems (1) Acute respiratory failure with hypoxia Current Visit: Yes Status: Acute Plan to address problem: O2 3 litres via nasal canula. Albuterol aerosol treatments q 6 hours. Continue S/C Heparin Continue famotidine. (2) Sepsis Current Visit: Yes Status: Acute Qualifiers: Sepsis type: sepsis due to unspecified organism Qualified Code(s): A41.9 - Sepsis, unspecified organism Plan to address problem: Patient is on vancomycin. (3) Decubitus ulcer Current Visit: No Status: Acute Plan to address problem: Wound care consultation. Patient is on vancomycin. (4) Diabetes Current Visit: No Status: Acute Plan to address problem: Management as per primary care. (5) HTN (hypertension) Current Visit: No Status: Acute Qualifiers: Hypertension type: essential hypertension Qualified Code(s): I10 - Essential (primary) hypertension Plan to address problem: Management as per primary care. Subjective Date of service: 10/14/18 Principal diagnosis: Septic shock; Ac encephalopathy; Multiple decubitus ulcers; Ac renal failur Interval history: Patient sleeping. Not responding to verbal stimuli. Patient contracted. Patient is on 3 litres O2.O2 saturation 95%. No acute respiratory distress. Objective Vital Signs - 12hr 10/14/18 10/14/18 10/14/18 07:53 08:48 10:00 Temperature 99.5 F Pulse Rate 102 H 99 H Respiratory 18 20 Rate Blood Pressure 134/78 O2 Sat by Pulse 93 98 Oximetry 10/14/18 11:04 Temperature Pulse Rate 112 H Respiratory Rate Blood Pressure 134/78 O2 Sat by Pulse Oximetry Constitutional: no acute distress, asleep, other (elderly looking AAM, normocephalic but contrated and with mildly increased work of breathing at rest) Eyes: non-icteric ENT: oropharynx moist Neck: no lymphadenopathy, no JVD, other (neck stiff and deviated to the right side) Effort: mildly labored Ascultation: Bilateral: diminished breath sounds, rhonchi (scant) Percussion: Bilateral: not dull Cardiovascular: regular rate and rhythm Gastrointestinal: normoactive bowel sounds, soft, non-tender, non-distended, other (PEG tube) Integumentary: rash Extremities: no cyanosis, no edema, pulses normal, no ischemia or petechiae Neurologic: pupils equal and round, other (tardive dyskinetic movts) Psychiatric: other (unable to assess) CBC and BMP: 10/13/18 23:00 10/14/18 07:18 ABG, PT/INR, D-dimer: ABG POC ABG pH 7.480 (7.35-7.45) H 10/01/18 18:12 POC ABG pO2 64 (80-105) L 10/01/18 18:12 POC ABG HCO3 21.0 (22-26 mml/L) 10/01/18 18:12 POC ABG Total CO2 22 (23-27mmol/L) 10/01/18 18:12 POC ABG O2 Sat 94 10/01/18 18:12 Abnormal lab findings: Abnormal Labs 10/01/18 10/01/18 10/01/18 14:29 14:29 15:13 WBC 18.5 H RBC 2.68 L Hgb 7.3 L Hct 23.1 L MCH 27 L MCHC 31 L RDW 19.3 H Plt Count 522 H Lymph % (Auto) 6.7 L Leslie % (Auto) Eos % (Auto) Lymph # Leslie # 1.2 H Eos # Seg Neutrophils % 85.0 H Seg Neuts % (Manual) Lymphocytes % (Manual) Seg Neutrophils # 15.7 H Seg Neutrophils # Man Lymphocytes # (Manual) POC ABG pH POC ABG pO2 Sodium 148 H Potassium 3.3 L Chloride Carbon Dioxide BUN 98 H Creatinine 2.0 H Glucose 142 H POC Glucose Lactic Acid Calcium Phosphorus Magnesium AST Alkaline Phosphatase Troponin T 0.361 H* C-Reactive Protein Albumin Cholesterol 36 L LDL Cholesterol Direct 6 L HDL Cholesterol 21 L Urine WBC (Auto) > 182.0 H Urine Creatinine Vancomycin Trough Crossmatch 10/01/18 10/01/18 10/01/18 15:15 15:15 17:03 WBC RBC Hgb Hct MCH MCHC RDW Plt Count Lymph % (Auto) Leslie % (Auto) Eos % (Auto) Lymph # Leslie # Eos # Seg Neutrophils % Seg Neuts % (Manual) Lymphocytes % (Manual) Seg Neutrophils # Seg Neutrophils # Man Lymphocytes # (Manual) POC ABG pH POC ABG pO2 Sodium 150 H Potassium Chloride Carbon Dioxide BUN 94 H Creatinine 2.1 H Glucose 132 H POC Glucose Lactic Acid 2.60 H* 2.20 H* Calcium 7.8 L Phosphorus Magnesium AST 47 H Alkaline Phosphatase 179 H Troponin T C-Reactive Protein Albumin 2.1 L Cholesterol LDL Cholesterol Direct HDL Cholesterol Urine WBC (Auto) Urine Creatinine Vancomycin Trough Crossmatch 10/01/18 10/01/18 10/01/18 18:12 18:23 18:23 WBC RBC Hgb Hct MCH MCHC RDW Plt Count Lymph % (Auto) Leslie % (Auto) Eos % (Auto) Lymph # Leslie # Eos # Seg Neutrophils % Seg Neuts % (Manual) Lymphocytes % (Manual) Seg Neutrophils # Seg Neutrophils # Man Lymphocytes # (Manual) POC ABG pH 7.480 H POC ABG pO2 64 L Sodium Potassium Chloride Carbon Dioxide BUN Creatinine Glucose POC Glucose Lactic Acid Calcium Phosphorus Magnesium 3.30 H AST Alkaline Phosphatase Troponin T 0.378 H* C-Reactive Protein Albumin Cholesterol LDL Cholesterol Direct HDL Cholesterol Urine WBC (Auto) Urine Creatinine Vancomycin Trough Crossmatch 10/01/18 10/01/18 10/01/18 18:48 21:20 23:48 WBC RBC Hgb Hct MCH MCHC RDW Plt Count Lymph % (Auto) Leslie % (Auto) Eos % (Auto) Lymph # Leslie # Eos # Seg Neutrophils % Seg Neuts % (Manual) Lymphocytes % (Manual) Seg Neutrophils # Seg Neutrophils # Man Lymphocytes # (Manual) POC ABG pH POC ABG pO2 Sodium Potassium Chloride Carbon Dioxide BUN Creatinine Glucose POC Glucose Lactic Acid 2.30 H* 2.70 H* Calcium Phosphorus Magnesium AST Alkaline Phosphatase Troponin T 0.336 H* C-Reactive Protein Albumin Cholesterol LDL Cholesterol Direct HDL Cholesterol Urine WBC (Auto) Urine Creatinine Vancomycin Trough Crossmatch 10/01/18 10/02/18 10/02/18 23:48 04:45 04:45 WBC 18.3 H RBC 2.40 L Hgb 6.4 L Hct 20.4 L MCH 27 L MCHC 31 L RDW 19.1 H Plt Count 462 H Lymph % (Auto) Leslie % (Auto) Eos % (Auto) Lymph # Leslie # Eos # Seg Neutrophils % Seg Neuts % (Manual) 78.0 H Lymphocytes % (Manual) 5.0 L Seg Neutrophils # Seg Neutrophils # Man 14.3 H Lymphocytes # (Manual) 0.9 L POC ABG pH POC ABG pO2 Sodium Potassium Chloride Carbon Dioxide BUN Creatinine Glucose POC Glucose Lactic Acid 2.50 H* Calcium Phosphorus Magnesium AST Alkaline Phosphatase Troponin T C-Reactive Protein Albumin Cholesterol LDL Cholesterol Direct HDL Cholesterol Urine WBC (Auto) Urine Creatinine 74.7 H Vancomycin Trough Crossmatch 10/02/18 10/02/18 10/02/18 04:45 04:45 04:45 WBC RBC Hgb Hct MCH MCHC RDW Plt Count Lymph % (Auto) Leslie % (Auto) Eos % (Auto) Lymph # Leslie # Eos # Seg Neutrophils % Seg Neuts % (Manual) Lymphocytes % (Manual) Seg Neutrophils # Seg Neutrophils # Man Lymphocytes # (Manual) POC ABG pH POC ABG pO2 Sodium 148 H Potassium 3.1 L Chloride 108.6 H Carbon Dioxide 21 L BUN 89 H Creatinine 1.8 H Glucose POC Glucose Lactic Acid 2.10 H* Calcium 8.3 L Phosphorus 5.00 H Magnesium AST Alkaline Phosphatase 161 H Troponin T C-Reactive Protein Albumin 1.7 L Cholesterol LDL Cholesterol Direct HDL Cholesterol Urine WBC (Auto) Urine Creatinine Vancomycin Trough Crossmatch 10/02/18 10/02/18 10/03/18 09:46 11:47 00:03 WBC RBC Hgb Hct MCH MCHC RDW Plt Count Lymph % (Auto) Leslie % (Auto) Eos % (Auto) Lymph # Leslie # Eos # Seg Neutrophils % Seg Neuts % (Manual) Lymphocytes % (Manual) Seg Neutrophils # Seg Neutrophils # Man Lymphocytes # (Manual) POC ABG pH POC ABG pO2 Sodium Potassium Chloride Carbon Dioxide BUN Creatinine Glucose POC Glucose 112 H 106 H Lactic Acid Calcium Phosphorus Magnesium AST Alkaline Phosphatase Troponin T C-Reactive Protein Albumin Cholesterol LDL Cholesterol Direct HDL Cholesterol Urine WBC (Auto) Urine Creatinine Vancomycin Trough Crossmatch See Detail 10/03/18 10/03/18 10/03/18 06:06 06:45 06:45 WBC 17.3 H RBC 2.81 L Hgb 7.6 L Hct 24.1 L MCH 27 L MCHC 31 L RDW 18.4 H Plt Count 473 H Lymph % (Auto) 5.2 L Leslie % (Auto) Eos % (Auto) 4.6 H Lymph # 0.9 L Leslie # Eos # 0.8 H Seg Neutrophils % 85.7 H Seg Neuts % (Manual) Lymphocytes % (Manual) Seg Neutrophils # 14.8 H Seg Neutrophils # Man Lymphocytes # (Manual) POC ABG pH POC ABG pO2 Sodium 148 H Potassium Chloride 112.1 H Carbon Dioxide 21 L BUN 79 H Creatinine 1.7 H Glucose 116 H POC Glucose 130 H Lactic Acid Calcium 7.9 L Phosphorus Magnesium AST Alkaline Phosphatase Troponin T C-Reactive Protein Albumin Cholesterol LDL Cholesterol Direct HDL Cholesterol Urine WBC (Auto) Urine Creatinine Vancomycin Trough Crossmatch 10/03/18 10/03/18 10/03/18 11:50 17:42 23:20 WBC RBC Hgb Hct MCH MCHC RDW Plt Count Lymph % (Auto) Leslie % (Auto) Eos % (Auto) Lymph # Leslie # Eos # Seg Neutrophils % Seg Neuts % (Manual) Lymphocytes % (Manual) Seg Neutrophils # Seg Neutrophils # Man Lymphocytes # (Manual) POC ABG pH POC ABG pO2 Sodium Potassium Chloride Carbon Dioxide BUN Creatinine Glucose POC Glucose 126 H 118 H 106 H Lactic Acid Calcium Phosphorus Magnesium AST Alkaline Phosphatase Troponin T C-Reactive Protein Albumin Cholesterol LDL Cholesterol Direct HDL Cholesterol Urine WBC (Auto) Urine Creatinine Vancomycin Trough Crossmatch 10/04/18 10/04/18 10/04/18 05:22 07:00 07:00 WBC 14.8 H RBC 2.38 L Hgb 6.4 L Hct 20.5 L MCH 27 L MCHC 31 L RDW 18.2 H Plt Count Lymph % (Auto) 5.3 L Leslie % (Auto) Eos % (Auto) 9.5 H Lymph # 0.8 L Leslie # Eos # 1.4 H Seg Neutrophils % 81.2 H Seg Neuts % (Manual) Lymphocytes % (Manual) Seg Neutrophils # 12.0 H Seg Neutrophils # Man Lymphocytes # (Manual) POC ABG pH POC ABG pO2 Sodium 148 H Potassium Chloride 112.0 H Carbon Dioxide BUN 73 H Creatinine Glucose 105 H POC Glucose 115 H Lactic Acid Calcium 8.1 L Phosphorus Magnesium AST Alkaline Phosphatase Troponin T C-Reactive Protein Albumin 1.5 L Cholesterol LDL Cholesterol Direct HDL Cholesterol Urine WBC (Auto) Urine Creatinine Vancomycin Trough Crossmatch 10/04/18 10/04/18 10/05/18 12:35 18:28 04:20 WBC 14.1 H RBC 2.94 L Hgb 8.2 L Hct 25.2 L MCH MCHC RDW 17.9 H Plt Count Lymph % (Auto) 6.6 L Leslie % (Auto) Eos % (Auto) 6.4 H Lymph # 0.9 L Leslie # Eos # 0.9 H Seg Neutrophils % 82.7 H Seg Neuts % (Manual) Lymphocytes % (Manual) Seg Neutrophils # 11.6 H Seg Neutrophils # Man Lymphocytes # (Manual) POC ABG pH POC ABG pO2 Sodium Potassium Chloride Carbon Dioxide BUN Creatinine Glucose POC Glucose 109 H 109 H Lactic Acid Calcium Phosphorus Magnesium AST Alkaline Phosphatase Troponin T C-Reactive Protein Albumin Cholesterol LDL Cholesterol Direct HDL Cholesterol Urine WBC (Auto) Urine Creatinine Vancomycin Trough Crossmatch 10/05/18 10/05/18 10/05/18 04:20 11:45 17:32 WBC RBC Hgb Hct MCH MCHC RDW Plt Count Lymph % (Auto) Leslie % (Auto) Eos % (Auto) Lymph # Leslie # Eos # Seg Neutrophils % Seg Neuts % (Manual) Lymphocytes % (Manual) Seg Neutrophils # Seg Neutrophils # Man Lymphocytes # (Manual) POC ABG pH POC ABG pO2 Sodium Potassium Chloride 110.0 H Carbon Dioxide 21 L BUN 64 H Creatinine Glucose POC Glucose 118 H 113 H Lactic Acid Calcium 8.3 L Phosphorus Magnesium AST Alkaline Phosphatase Troponin T C-Reactive Protein Albumin Cholesterol LDL Cholesterol Direct HDL Cholesterol Urine WBC (Auto) Urine Creatinine Vancomycin Trough Crossmatch 10/06/18 10/06/18 10/06/18 05:15 05:15 05:35 WBC 12.3 H RBC 2.77 L Hgb 7.6 L Hct 24.1 L MCH MCHC RDW 18.1 H Plt Count Lymph % (Auto) 4.9 L Leslie % (Auto) Eos % (Auto) 7.3 H Lymph # 0.6 L Leslie # Eos # 0.9 H Seg Neutrophils % 81.1 H Seg Neuts % (Manual) Lymphocytes % (Manual) Seg Neutrophils # 10.0 H Seg Neutrophils # Man Lymphocytes # (Manual) POC ABG pH POC ABG pO2 Sodium 146 H Potassium Chloride 112.1 H Carbon Dioxide BUN 57 H Creatinine Glucose 120 H POC Glucose 115 H Lactic Acid Calcium Phosphorus Magnesium AST Alkaline Phosphatase Troponin T C-Reactive Protein Albumin Cholesterol LDL Cholesterol Direct HDL Cholesterol Urine WBC (Auto) Urine Creatinine Vancomycin Trough Crossmatch 10/06/18 10/06/18 10/06/18 12:31 18:44 Unknown WBC RBC Hgb Hct MCH MCHC RDW Plt Count Lymph % (Auto) Leslie % (Auto) Eos % (Auto) Lymph # Leslie # Eos # Seg Neutrophils % Seg Neuts % (Manual) Lymphocytes % (Manual) Seg Neutrophils # Seg Neutrophils # Man Lymphocytes # (Manual) POC ABG pH POC ABG pO2 Sodium Potassium Chloride Carbon Dioxide BUN Creatinine Glucose POC Glucose 150 H 125 H Lactic Acid Calcium Phosphorus Magnesium AST Alkaline Phosphatase Troponin T C-Reactive Protein Albumin Cholesterol LDL Cholesterol Direct HDL Cholesterol Urine WBC (Auto) Urine Creatinine Vancomycin Trough 23.5 H Crossmatch 10/07/18 10/07/18 10/07/18 05:06 05:06 08:34 WBC RBC Hgb 8.2 L Hct 25.8 L MCH MCHC RDW Plt Count Lymph % (Auto) Leslie % (Auto) Eos % (Auto) Lymph # Leslie # Eos # Seg Neutrophils % Seg Neuts % (Manual) Lymphocytes % (Manual) Seg Neutrophils # Seg Neutrophils # Man Lymphocytes # (Manual) POC ABG pH POC ABG pO2 Sodium Potassium Chloride 112.2 H Carbon Dioxide 21 L BUN 43 H Creatinine Glucose POC Glucose Lactic Acid Calcium 8.3 L Phosphorus Magnesium AST Alkaline Phosphatase Troponin T C-Reactive Protein Albumin Cholesterol LDL Cholesterol Direct HDL Cholesterol Urine WBC (Auto) Urine Creatinine Vancomycin Trough 23.0 H Crossmatch 10/08/18 10/08/18 10/08/18 05:07 05:07 11:09 WBC RBC 2.86 L Hgb 8.0 L Hct 24.5 L MCH MCHC RDW 18.7 H Plt Count Lymph % (Auto) 7.8 L Leslie % (Auto) 8.2 H Eos % (Auto) 5.9 H Lymph # 0.8 L Leslie # 0.9 H Eos # 0.6 H Seg Neutrophils % 77.8 H Seg Neuts % (Manual) Lymphocytes % (Manual) Seg Neutrophils # 8.2 H Seg Neutrophils # Man Lymphocytes # (Manual) POC ABG pH POC ABG pO2 Sodium Potassium 5.1 H Chloride 111.8 H Carbon Dioxide BUN 37 H Creatinine Glucose 101 H POC Glucose Lactic Acid Calcium 8.3 L Phosphorus Magnesium 2.50 H AST Alkaline Phosphatase Troponin T C-Reactive Protein 11.40 H Albumin Cholesterol LDL Cholesterol Direct HDL Cholesterol Urine WBC (Auto) Urine Creatinine Vancomycin Trough Crossmatch 10/09/18 10/10/18 10/10/18 05:48 09:02 09:02 WBC 13.6 H RBC 2.80 L Hgb 7.5 L Hct 23.9 L MCH 27 L MCHC 31 L RDW 18.9 H Plt Count Lymph % (Auto) 5.7 L Leslie % (Auto) 8.5 H Eos % (Auto) Lymph # 0.8 L Leslie # 1.1 H Eos # Seg Neutrophils % 83.9 H Seg Neuts % (Manual) Lymphocytes % (Manual) Seg Neutrophils # 11.4 H Seg Neutrophils # Man Lymphocytes # (Manual) POC ABG pH POC ABG pO2 Sodium Potassium 5.2 H 5.6 H Chloride 112.9 H 111.7 H Carbon Dioxide 21 L BUN 34 H 32 H Creatinine 0.7 L Glucose 109 H POC Glucose Lactic Acid Calcium Phosphorus Magnesium AST Alkaline Phosphatase Troponin T C-Reactive Protein Albumin Cholesterol LDL Cholesterol Direct HDL Cholesterol Urine WBC (Auto) Urine Creatinine Vancomycin Trough Crossmatch 10/11/18 10/11/18 10/11/18 04:41 04:41 09:09 WBC 11.4 H RBC 2.52 L Hgb 6.9 L Hct 22.0 L MCH 27 L MCHC 31 L RDW 19.0 H Plt Count Lymph % (Auto) Leslie % (Auto) Eos % (Auto) Lymph # Leslie # Eos # Seg Neutrophils % Seg Neuts % (Manual) Lymphocytes % (Manual) Seg Neutrophils # Seg Neutrophils # Man Lymphocytes # (Manual) POC ABG pH POC ABG pO2 Sodium 146 H Potassium Chloride 113.0 H Carbon Dioxide BUN 30 H Creatinine Glucose POC Glucose Lactic Acid Calcium 8.2 L Phosphorus Magnesium AST Alkaline Phosphatase Troponin T C-Reactive Protein Albumin Cholesterol LDL Cholesterol Direct HDL Cholesterol Urine WBC (Auto) Urine Creatinine Vancomycin Trough Crossmatch See Detail 10/11/18 10/12/18 10/12/18 23:29 04:22 04:22 WBC RBC 2.98 L Hgb 8.3 L Hct 25.5 L MCH MCHC RDW 17.7 H Plt Count Lymph % (Auto) Leslie % (Auto) Eos % (Auto) Lymph # Leslie # Eos # Seg Neutrophils % Seg Neuts % (Manual) Lymphocytes % (Manual) Seg Neutrophils # Seg Neutrophils # Man Lymphocytes # (Manual) POC ABG pH POC ABG pO2 Sodium 146 H 146 H Potassium Chloride 110.6 H 112.8 H Carbon Dioxide BUN 30 H 29 H Creatinine Glucose 102 H POC Glucose Lactic Acid Calcium 8.2 L Phosphorus 4.60 H Magnesium AST Alkaline Phosphatase Troponin T C-Reactive Protein Albumin Cholesterol LDL Cholesterol Direct HDL Cholesterol Urine WBC (Auto) Urine Creatinine Vancomycin Trough Crossmatch 10/13/18 10/13/18 10/14/18 23:00 23:00 00:15 WBC RBC 2.95 L Hgb 8.6 L Hct 25.4 L MCH MCHC RDW 18.1 H Plt Count Lymph % (Auto) Leslie % (Auto) Eos % (Auto) Lymph # Leslie # Eos # Seg Neutrophils % Seg Neuts % (Manual) Lymphocytes % (Manual) Seg Neutrophils # Seg Neutrophils # Man Lymphocytes # (Manual) POC ABG pH POC ABG pO2 Sodium Potassium 5.4 H Chloride 111.4 H Carbon Dioxide BUN 30 H Creatinine Glucose 107 H POC Glucose 151 H Lactic Acid Calcium Phosphorus Magnesium AST Alkaline Phosphatase Troponin T C-Reactive Protein Albumin Cholesterol LDL Cholesterol Direct HDL Cholesterol Urine WBC (Auto) Urine Creatinine Vancomycin Trough Crossmatch 10/14/18 07:18 WBC RBC Hgb Hct MCH MCHC RDW Plt Count Lymph % (Auto) Leslie % (Auto) Eos % (Auto) Lymph # Leslie # Eos # Seg Neutrophils % Seg Neuts % (Manual) Lymphocytes % (Manual) Seg Neutrophils # Seg Neutrophils # Man Lymphocytes # (Manual) POC ABG pH POC ABG pO2 Sodium Potassium 5.3 H Chloride 112.3 H Carbon Dioxide BUN 29 H Creatinine Glucose 106 H POC Glucose Lactic Acid Calcium Phosphorus Magnesium AST Alkaline Phosphatase Troponin T C-Reactive Protein Albumin Cholesterol LDL Cholesterol Direct HDL Cholesterol Urine WBC (Auto) Urine Creatinine Vancomycin Trough Crossmatch Chest x-ray: report reviewed (Reported no evidence of infiltrate.), image reviewed Allied health notes reviewed: nursing
[2018-10-14] MEDS: TYLENOL FEEDTUBE PRN (21:09)
[2018-10-15] MEDS: HumaLOG SUB-Q SCH ×4 (01:30→18:44)
[2018-10-15 06:08] LABS: Hematocrit 25.4 % (35.5-45.6); Hemoglobin 8.2 gm/dl (11.8-15.2); Mean Corpuscular HGB Conc 32 % (32-34); Mean Corpuscular Volume 87 fl (84-94); Platelet Count 392 K/mm3 (140-440); Red Blood Count 2.93 M/mm3 (3.65-5.03); Red Cell Distribution Width 17.5 % (13.2-15.2)
[2018-10-15 06:21] LABS: BUN/Creatinine Ratio 31; Blood Urea Nitrogen 28 mg/dL (9-20); Calcium 8.4 mg/dL (8.4-10.2); Hemolysis Index 0
--- NOTE | 2018-10-15 09:33 | Consultation ---
History of Present Illness - Reason for Consult Consult date: 10/15/18 sepsis - History of Present Illness Patient with a history of multiple medical problems who presents with sepsis. Request for placement of tunneled central venous catheter. On examination, the patient is minimally responsive secondary to encephalopathy. He is contracted. His left neck appears appropriate for an access site. Past History Past Medical History: anemia, diabetes, hypertension, hyperlipidemia, seizures, stroke, other (Decubitus ulcers, bedbound status) Medications and Allergies Allergies Allergy/AdvReac Type Severity Reaction Status Date / Time lisinopril Allergy Unknown Verified 10/01/18 15:17 tramadol Allergy Unknown Verified 07/29/18 18:39 Home Medications Medication Instructions Recorded Confirmed Last Taken Type Multivit-Min/Iron Fum/Folic AC 1 each PO DAILY 03/24/18 10/03/18 Unknown History [Xystz-Atkxtpr-Lfrlbvvc Tablet] Acetaminophen 650 mg NGTUBE Q6H PRN 07/30/18 10/03/18 Unknown History AtorvaSTATin [Lipitor] 40 mg NGTUBE QHS 07/30/18 10/03/18 Unknown History Dutasteride 0.5 mg NGTUBE QAM 07/30/18 10/03/18 Unknown History Ipratropium/Albuterol Sulfate 1 ampul IH BID 07/30/18 10/03/18 Unknown History [DUONEB *Not for PRN Use*] Lisinopril [Zestril TAB] 40 mg PO QDAY 07/30/18 10/03/18 Unknown History Tamsulosin [Flomax] 0.4 mg PO QDAY 07/30/18 10/03/18 Unknown History Vit C/Ascorbate Calcium,Sodium 500 mg NGTUBE BID 07/30/18 10/03/18 Unknown History [Vitamin C 500 mg/15 ml Liquid] Zinc Sulfate 220 mg NGTUBE QDAY 07/30/18 10/03/18 Unknown History levETIRAcetam [Keppra INJ] 500 mg PO Q12H 07/30/18 10/03/18 Unknown History Carvedilol [Coreg] 3.125 mg PO BID #60 tablet 08/23/18 10/03/18 Unknown Rx Furosemide [Lasix] 20 mg PO QDAY #30 tablet 08/23/18 10/03/18 Unknown Rx Oxycodone HCl/Acetaminophen 1 each PO Q8HR PRN #14 tablet 08/23/18 10/03/18 Unknown Rx [Percocet 7.5/325 mg] Phosphorus #1 [K-Phos Neutral] 250 mg PO QID #30 tablet 08/23/18 10/03/18 Unknown Rx hydroCHLOROthiazide [HCTZ] 12.5 mg PO QDAY #30 tablet 08/23/18 10/03/18 Unknown Rx Active Meds: Active Medications Acetaminophen (Tylenol) 650 mg FEEDTUBE Q6H PRN PRN Reason: Pain, Moderate (4-6) Last Admin: 10/14/18 21:09 Dose: 650 mg Documented by: Albuterol (Proventil) 2.5 mg IH Q3HRT PRN PRN Reason: Shortness Of Breath Last Admin: 10/04/18 21:02 Dose: 2.5 mg Documented by: Lipase/Protease/Amylase (Nickie Moore 10,500 Unit) 1 each FEEDTUBE PRN PRN PRN Reason: For Clogged Feeding Tube Ascorbic Acid (Vitamin C) 500 mg FEEDTUBE BID [facility] Last Admin: 10/14/18 21:09 Dose: 500 mg Documented by: Atorvastatin Calcium (Lipitor) 40 mg FEEDTUBE QHS [facility] Last Admin: 10/14/18 21:09 Dose: 40 mg Documented by: Carvedilol (Coreg) 6.25 mg PO BID [facility] Last Admin: 10/14/18 21:08 Dose: 6.25 mg Documented by: Clonidine HCl (Catapres-Tts Patch) 0.2 mg TD Tu [facility] Last Admin: 10/08/18 09:52 Dose: 0.2 mg Documented by: Famotidine (Pepcid) 20 mg PO DAILY [facility] Last Admin: 10/14/18 10:56 Dose: 20 mg Documented by: Heparin Sodium (Porcine) (Heparin) 5,000 unit SUB-Q Q12HR [facility] Last Admin: 10/14/18 21:10 Dose: 5,000 unit Documented by: Hydralazine HCl (Apresoline) 10 mg IV Q4HR PRN PRN Reason: Blood Pressure Last Admin: 10/07/18 18:00 Dose: 10 mg Documented by: Hydrochlorothiazide (Hctz) 25 mg PO QDAY [facility] Last Admin: 10/14/18 11:03 Dose: 25 mg Documented by: Vancomycin HCl (Vancomycin/Ns 1 Gm/250 Ml) 1 gm in 250 mls @ 167.007 mls/hr IV Q48HR [facility] Stop: 11/12/18 09:59 Last Admin: 10/14/18 11:05 Dose: 167.007 mls/hr Documented by: Insulin Human Lispro (Humalog) 0 unit SUB-Q Q6HR [facility]; Protocol Last Admin: 10/15/18 06:06 Dose: Not Given Documented by: Levetiracetam (Keppra) 500 mg PO BID [facility] Last Admin: 10/14/18 21:09 Dose: 500 mg Documented by: Multivitamins (Theragran Tab) 1 each PO DAILY [facility] Last Admin: 10/14/18 11:04 Dose: 1 each Documented by: Oxycodone/Acetaminophen (Percocet 5/325) 1 tab PO Q4H PRN PRN Reason: Pain, Moderate (4-6) Last Admin: 10/08/18 23:23 Dose: 1 tab Documented by: Simple Syrup (Simple Syrup) 15 ml FEEDTUBE PRN PRN PRN Reason: Hypoglycemia Simple Syrup (Simple Syrup) 30 ml FEEDTUBE PRN PRN PRN Reason: Hypoglycemia Sodium Bicarbonate (Sodium Bicarbonate) 325 mg FEEDTUBE PRN PRN PRN Reason: For Clogged Feeding Tube Sodium Chloride (Sodium Chloride Flush Syringe 10 Ml) 10 ml IV BID [facility] Last Admin: 10/14/18 21:11 Dose: 10 ml Documented by: Sodium Chloride (Sodium Chloride Flush Syringe 10 Ml) 10 ml IV PRN PRN PRN Reason: LINE FLUSH Last Admin: 10/05/18 21:30 Dose: 10 ml Documented by: Zinc Sulfate (Zinc Sulfate) 220 mg PO QDAY [facility] Last Admin: 10/14/18 11:05 Dose: 220 mg Documented by: Review of Systems ROS unobtainable: due to mental status Exam - Constitutional Vitals: Temp Pulse Resp BP Pulse Ox 98.5 F 87 18 131/70 100 10/15/18 07:40 10/15/18 07:40 10/15/18 07:40 10/15/18 07:40 10/15/18 07:40 General appearance: Present: no acute distress - EENT Eyes: Present: EOM intact ENT: hearing intact - Neck Neck: Present: rigidity - Respiratory Respiratory effort: normal - Extremities Extremities: abnormal - Abdominal General gastrointestinal: Present: deferred Male genitourinary: Present: deferred - Rectal Rectal Exam: deferred Results - Labs CBC & Chem 7: 10/15/18 05:32 10/15/18 05:32 Labs: Abnormal lab results 10/14/18 10/15/18 10/15/18 Range/Units 18:33 05:32 05:32 RBC 2.93 L (3.65-5.03) M/mm3 Hgb 8.2 L (11.8-15.2) gm/dl Hct 25.4 L (35.5-45.6) % RDW 17.5 H (13.2-15.2) % Sodium 146 H (137-145) mmol/L Potassium 3.5 L D (3.6-5.0) mmol/L Chloride 111.1 H (98-107) mmol/L BUN 28 H (9-20) mg/dL Glucose 103 H (75-100) mg/dL POC Glucose 124 H (70-105) Assessment and Plan Patient will be scheduled for placement of a tunneled central venous catheter likely on the left side. This was planned for today however, one of the cath labs is down with uncertain time for repair. We'll plan on placing the tunneled central venous catheter tomorrow
[2018-10-15] MEDS: CATAPRES-TTS PATCH TD SCH (09:48)
[2018-10-15] MEDS: THERAGRAN Tab PO SCH (09:49)
[2018-10-15] MEDS: COREG PO SCH ×2 (09:49→21:20)
[2018-10-15] MEDS: HCTZ PO SCH (09:49)
[2018-10-15] MEDS: PEPCID PO SCH (09:49)
[2018-10-15] MEDS: VITAMIN C FEEDTUBE SCH ×2 (09:49→21:20)
[2018-10-15] MEDS: KEPPRA PO SCH ×2 (09:49→21:21)
[2018-10-15] MEDS: SODIUM CHLORIDE FLUSH SYRINGE 10 ML IV SCH ×2 (09:50→21:21)
[2018-10-15] MEDS: HEPARIN SUB-Q SCH ×2 (09:50→21:20)
[2018-10-15] MEDS: ZINC SULFATE PO SCH (09:51)
[2018-10-15] MEDS ORDERED: PANCREAZE DR 10,500 UNIT FEEDTUBE PRN (10:41)
[2018-10-15] MEDS ORDERED: SIMPLE SYRUP FEEDTUBE PRN ×2 (10:41)
[2018-10-15] MEDS ORDERED: SODIUM BICARBONATE FEEDTUBE PRN (10:41)
--- NOTE | 2018-10-15 11:42 | Progress Note ---
Assessment and Plan Cultures: Blood culture 10/01/2018 MRSA 2 of 4. Blood culture 10/03/2018 no growth Assessment: 67 y/o male with hsitory of HTN, CVA, Obstructive Uropathy, Contracture, Multiple Decubitus Ulcers, [place], DM, OA, Seizure Disorder, COPD, Dementia, Debility, BPH, well known to ID due to multiple admissions from ducubitus ulcers infections, [facility], admitted on due to decreased respo nsiveness compared to baseline and hypotension SBP in 60's: 1) Severe Sepsis with septic shock: new isolated fever. Etiology most likely Staph bacteremia. 2) MRSA bacteremia: source likely multiple decubitus or UTI. Blood culture 10/01/2018 GPC in clusters 2 of 4. TTE no negative. 3) Recent septic shock due to polymicrobial bacteremia ESBL E coli, MDR Proteus, Strep and E faecalis on 07/29/2018 probably from multiple infected decubitus ulcers and less likely UTI. Repeat blood cultures 07/31/2018 showed same MDR E coli 1 of 4 bottles then 08/06/2018 blood cultures showed no growth. Patient did not respond to carbapenem and was placed on vabomere for 14 days. 4) Multiple infected decubitus ulcers: currently active large left trochanteric with bone exposure and sacral with bone exposure. His prognosis has been poor and discussed previously with family hospice indication but they declined. His wounds are not curable considering his contractures, bed bound status and poor nutritional status. There was also suspicion of septic arthritis of left hip from decubitus ulcer. 5) Recurrent CAUTI 6) Acute encephalopathy: resolved. 7) MÓNICA: resolved with high K. 8) Low grade fever: ? resolved Recommendations: - Vascular to place a tunneled central venous catheter likely on the left side. - Continue wound care - Continue vancomycin D14 for MRSA bacteremia. - WBC tagged scan ordered - Unable to perform because of contractions - Anticipate discharge on Vancomycin 1 gm every 48 hours for total 6 weeks ending 11-12-18 - Again, this infection is incurable, patient's family has been advised hospice several times in the past but refused Will follow. Penny Bernardo MD Infectious Diseases [employer] [facility] M [phone] O [phone] Subjective Date of service: 10/15/18 Principal diagnosis: Septic shock; Ac encephalopathy; Multiple decubitus ulcers; Ac renal failur Interval history: Feels ok alert, talking, no fever for 2 days ROS limited confused Objective - Exam Narrative Exam: General appearance: Alert in NAD verbal Eyes: anicteric sclerae, moist conjunctivae; no lid-lag; PERRLA HENT: Atraumatic; oropharynx limited Neck: Trachea midline; supple, no thyromegaly or lymphadenopathy Lungs: scattered rhonchi CV: rrr Abdomen: Soft, non-tender;PEG Extremities: altaf contracted legs, multiple wounds covered Skin: multiple skin tears Psych: no agitated Neuro: alert non verbal no agitated WOUND CARE EVAL LEFT TROCHANTER STAGE 4 PRESSURE INJURY. LARGE AMOUNT OF YELLOW DRAINAGE. NO ODOR. WOUND PROBES TO A DEPTH OF 8CM. 6X6X8. THERE IS BONE EXPOSED. CLEANSED WITH WOUND CLEANSER. PACKED WITH 2 PIECES OF 4X4 ALGINATE. COVERED WITH 4X4 GAUZE, THEN TELFA. STAGE 4 SACRAL PRESSURE INJURY NOTED. PINK GRANULATION TISSUE. MODERATE AMOUNT OF YELLOW DRAINAGE. BONE IS EXPOSED. PERIWOUND SKIN IS INTACT. MEASURES [id number] CLEANSED WITH WOUND CLEANSER. ALGINATE APPLIED. COVERED WITH 4X4 GAUZE, THEN TELFA. - Constitutional Vitals: Vital Signs Temp Pulse Resp BP Pulse Ox 98.5 F 87 18 131/70 100 10/15/18 07:40 10/15/18 09:49 10/15/18 07:40 10/15/18 09:49 10/15/18 07:40 Temperature -Last 24 Hours Temperature 98.5 F Temperature 98.9 F Temperature 98.0 F Temperature 98.9 F Temperature 98.2 F Temperature 99.0 F - Labs CBC & Chem 7: 10/15/18 05:32 10/15/18 05:32 Labs: Abnormal lab results 10/14/18 10/15/18 10/15/18 Range/Units 18:33 05:32 05:32 RBC 2.93 L (3.65-5.03) M/mm3 Hgb 8.2 L (11.8-15.2) gm/dl Hct 25.4 L (35.5-45.6) % RDW 17.5 H (13.2-15.2) % Sodium 146 H (137-145) mmol/L Potassium 3.5 L D (3.6-5.0) mmol/L Chloride 111.1 H (98-107) mmol/L BUN 28 H (9-20) mg/dL Glucose 103 H (75-100) mg/dL POC Glucose 124 H (70-105)
--- NOTE | 2018-10-15 13:48 | Progress Note ---
Assessment and Plan 1. Acute kidney injury: Vasomotor / hemodynamic MÓNICA in the setting of hypotension, sepsis and volume depletion. Renal function is better. Monitor renal function. Avoid nephrotoxic agents. Meds dosage based on GFR. 2. FEN: Hyperkalemia, improved. Hypernatremia, stable. Monitor lytes. 3. Sepsis with shock: MRSA bacteremia. Multiple decubiti. Followed by ID. 4. Acute hypoxic respiratory failure. 5. Anemia: PRBC. 6. Encephalopathy. Subjective Date of service: 10/15/18 Principal diagnosis: Septic shock; Ac encephalopathy; Multiple decubitus ulcers; Ac renal failur Interval history: Patient was seen and examined at the bedside. Objective - Vital Signs Vital signs: Vital Signs - 12hr 10/15/18 10/15/18 10/15/18 03:22 07:40 09:48 Temperature 98.9 F 98.5 F Pulse Rate 89 87 87 Respiratory 22 18 Rate Blood Pressure 122/64 131/70 131/70 O2 Sat by Pulse 99 100 Oximetry 10/15/18 10/15/18 09:49 10:00 Temperature Pulse Rate 87 Respiratory 20 Rate Blood Pressure 131/70 O2 Sat by Pulse Oximetry - General Appearance General appearance: well-developed, appears stated age, other (not in distress) EENT: ATNC Respiratory: Present: Clear to Ascultation Cardiology: regular, S1S2, no murmurs Gastrointestinal: normoactive bowel sounds, no tenderness, other (PEG tube, Chaudhary catheter) Integumentary: ulcer, decubiti Neurologic: other (opens eyes, not following any command) Musculoskeletal: other (contractures noted, dependent edema noted) - Lab 10/15/18 05:32 10/15/18 05:32 Most recent lab results Calcium 8.4 mg/dL (8.4-10.2) 10/15/18 05:32 Phosphorus 4.50 mg/dL (2.5-4.5) 10/12/18 04:22 Magnesium 2.30 mg/dL (1.7-2.3) 10/12/18 04:22 74.7 mg/dL (0.1-20.0) H 10/02/18 04:45 21 mmol/L 10/02/18 04:45 Medications & Allergies - Medications Allergies/Adverse Reactions: Allergies lisinopril Allergy (Verified 10/01/18 15:17) Unknown tramadol Allergy (Verified 07/29/18 18:39) Unknown Home Medications: Home Medications Medication Instructions Recorded Confirmed Last Taken Type Multivit-Min/Iron Fum/Folic AC 1 each PO DAILY 03/24/18 10/03/18 Unknown History [Hympn-Hafbvht-Qiyslygn Tablet] Acetaminophen 650 mg NGTUBE Q6H PRN 07/30/18 10/03/18 Unknown History AtorvaSTATin [Lipitor] 40 mg NGTUBE QHS 07/30/18 10/03/18 Unknown History Dutasteride 0.5 mg NGTUBE QAM 07/30/18 10/03/18 Unknown History Ipratropium/Albuterol Sulfate 1 ampul IH BID 07/30/18 10/03/18 Unknown History [DUONEB *Not for PRN Use*] Lisinopril [Zestril TAB] 40 mg PO QDAY 07/30/18 10/03/18 Unknown History Tamsulosin [Flomax] 0.4 mg PO QDAY 07/30/18 10/03/18 Unknown History Vit C/Ascorbate Calcium,Sodium 500 mg NGTUBE BID 07/30/18 10/03/18 Unknown History [Vitamin C 500 mg/15 ml Liquid] Zinc Sulfate 220 mg NGTUBE QDAY 07/30/18 10/03/18 Unknown History levETIRAcetam [Keppra INJ] 500 mg PO Q12H 07/30/18 10/03/18 Unknown History Carvedilol [Coreg] 3.125 mg PO BID #60 tablet 08/23/18 10/03/18 Unknown Rx Furosemide [Lasix] 20 mg PO QDAY #30 tablet 08/23/18 10/03/18 Unknown Rx Oxycodone HCl/Acetaminophen 1 each PO Q8HR PRN #14 tablet 08/23/18 10/03/18 Unknown Rx [Percocet 7.5/325 mg] Phosphorus #1 [K-Phos Neutral] 250 mg PO QID #30 tablet 08/23/18 10/03/18 Unknown Rx hydroCHLOROthiazide [HCTZ] 12.5 mg PO QDAY #30 tablet 08/23/18 10/03/18 Unknown Rx Active Medications: Generic Name Dose Route Start Last Admin Trade Name Freq PRN Reason Stop Dose Admin Acetaminophen 650 mg 10/01/18 15:32 10/14/18 21:09 Tylenol FEEDTUBE 650 mg Q6H PRN Administration Pain, Moderate (4-6) Albuterol 2.5 mg 10/01/18 17:40 10/04/18 21:02 Proventil IH 2.5 mg Q3HRT PRN Administration Shortness Of Breath Lipase/Protease/Amylase 1 each 10/15/18 10:[address] 10,500 Unit FEEDTUBE PRN PRN For Clogged Feeding Tube Ascorbic Acid 500 mg 10/04/18 10:00 10/15/18 09:49 Vitamin C FEEDTUBE 500 mg BID NORA Administration Atorvastatin Calcium 40 mg 10/01/18 22:00 10/14/18 21:09 Lipitor FEEDTUBE 40 mg QHS NORA Administration Carvedilol 6.25 mg 10/13/18 22:00 10/15/18 09:49 Coreg PO 6.25 mg BID NORA Administration Clonidine HCl 0.2 mg 10/08/18 10:00 10/15/18 09:48 Catapres-Tts Patch TD 0.2 mg Tu NORA Administration Famotidine 20 mg 10/03/18 12:00 10/15/18 09:49 Pepcid PO 20 mg DAILY NORA Administration Heparin Sodium (Porcine) 5,000 unit 10/01/18 22:00 10/15/18 09:50 Heparin SUB-Q 5,000 unit Q12HR NORA Administration Hydralazine HCl 10 mg 10/07/18 15:12 10/07/18 18:00 Apresoline IV 10 mg Q4HR PRN Administration Blood Pressure Hydrochlorothiazide 25 mg 10/11/18 09:00 10/15/18 09:49 Hctz PO 25 mg QDAY NORA Administration Vancomycin HCl 1 gm in 250 mls @ 167.007 mls/hr 10/08/18 10:00 10/14/18 11:05 Vancomycin/Ns 1 Gm/250 Ml IV 11/12/18 09:59 167.007 mls/hr Q48HR NORA Administration Insulin Human Lispro 0 unit 10/13/18 12:00 10/15/18 13:11 Humalog SUB-Q Not Given Q6HR [facility] Protocol Levetiracetam 500 mg 10/01/18 22:00 10/15/18 09:49 Keppra PO 500 mg BID NORA Administration Multivitamins 1 each 10/02/18 10:00 10/15/18 09:49 Theragran Tab PO 1 each DAILY NORA Administration Oxycodone/Acetaminophen 1 tab 10/02/18 20:16 10/08/18 23:23 Percocet 5/325 PO 1 tab Q4H PRN Administration Pain, Moderate (4-6) Simple Syrup 15 ml 10/15/18 10:41 Simple Syrup FEEDTUBE PRN PRN Hypoglycemia Simple Syrup 30 ml 10/15/18 10:41 Simple Syrup FEEDTUBE PRN PRN Hypoglycemia Sodium Bicarbonate 325 mg 10/15/18 10:41 Sodium Bicarbonate FEEDTUBE PRN PRN For Clogged Feeding Tube Sodium Chloride 10 ml 10/01/18 22:00 10/15/18 09:50 Sodium Chloride Flush Syringe 10 Ml IV 10 ml BID NORA Administration Sodium Chloride 10 ml 10/01/18 17:40 10/05/18 21:30 Sodium Chloride Flush Syringe 10 Ml IV 10 ml PRN PRN Administration LINE FLUSH Zinc Sulfate 220 mg 10/02/18 10:00 10/15/18 09:51 Zinc Sulfate PO 220 mg QDAY NORA Administration
--- NOTE | 2018-10-15 15:24 | Progress Note ---
Assessment and Plan / Severe sepsis with shock, POA due to bacteremia, UTI and RUL PNA continue Sepsis Protocol: IV antibiotic therapy, IVF resuscitation therapy, MRSA on Blood cultures, s/p IV pressors , ID consulted Per ID: - Continue vancomycin now for MRSA bacteremia. So far no clear source for MRSA bacteremia but suspected possible infected decubitus ulcer - treated with meropenem for 5 days to cover UTI as urine culture was not sent and he has h/o MDR GNRs - Anticipate discharge on Vancomycin 1 gm every 48 hours for total 6 weeks ending 11-12-18 - Again, this infection is incurable, patient's family has been advised hospice several times in the past but refused /MRSA bacteremia - possible source infected decubitus ulcer - cont vanc, ID following, 2d echo showed no vegetation /Decubitus ulcer, multiple with different stages - cont wound care, abx per ID - Could be the source for bacteremia, ID ordered for WBC scan but could not be done because of his chronic contracture/anatomical position /Anemia, s/p 2 units blood transfusion, likely AOCD and severe sepsis - stool for occult blood negative, cont to monitor / MÓNICA with vasomotor nephropathy renal function stable with IVF resuscitation therapy, monitor uop q shift, nephrology consulted in ED. /Right upper lobe Pneumonia, suspect aspiration Treated with IV antibiotic therapy, supplemental oxygen, pulse oximetry, / Elevated troponin Likely due to sepsis with low blood pressure and renal failure Monitor with Serial cardiac enzymes, Cardiology consulted in ED, No EKG changes, supportive care, / UTI (lower urinary tract infection) Treated with IV antibiotic therapy, IV fluids /Acute hypoxic Respiratory failure Likely due to underlying pneumonia Continue to provide Supplemental oxygen, nebulizer therapy, NIPPV as clinically indicated, pulse oximetry, /Moderate to severe protein calorie malnutrition - BMI 17.8, albumin 1.7 - consulted dietary, continue tube feeding for now hypernatremia, on hypotonic saline Hypokalemia/hyperkalemia, -cont to monitor /Hypertension, placed on clonidine patch / DVT prophylaxis SCD to BLE while in bed, prophylactic heparin Disposition: SNF when isolation bed available Brief History: 67 YO Male Assisted Facility Resident as [facility] with HTN, CVA, Obstructive Uropathy, Contracture, Decubitus Ulcers, [place], DM, OA, Seizure Disorder, COPD, Dementia, Debility, BPH presented to ED for evaluation, As per staff, the patient was found to have decreased responsiveness compared to baseline. Pt seen and evaluated in ED and found to have Sepsis secondary to UTI with concomitant RUL Pneumonia with a QSofa score of 8, GCS:3, MAP less than 70, Creatnine:2.1, Encephalopathy, and symptomatic anemia. Pt was admitted to ICU and initiated on Sepsis protocol. Now being treated for MRSA bacteremia. Radiological data: Chest x-ray: Limited exam. Mild cardiomegaly. The lungs are grossly clear although there is poor visualization of the right upper lobe. 2-D echo: Preserved EF with abnormal left ventricular diastolic filling pressure Hospitalist Physical exam: GENERAL: Elderly male lying on bed appeared to be in no discomfort. It appears to be very lethargic and aphasic HEENT: Normocephalic. Atraumatic. No conjunctival congestion or icterus. Patient has moist mucous membranes. NECK: Supple. Trachea midline. CHEST/LUNGS: Clear to auscultated bilaterally, breathing nonlabored. No wheezes crackles or rhonchi. HEART/CARDIOVASCULAR: Regular in rate and rhythm. S1 and S2 positive. ABDOMEN: Abdomen is soft, nontender. Patient has normal bowel sounds. SKIN: There is no rash. Warm and dry. NEURO: Does not Follow command. MUSCULOSKELETAL: No joint effusion, generalized weakness unable to move extremities EXTRIMITY: No edema, no cyanosis or clubbing. PSYCH: Unable to assess. Subjective Date of service: 10/15/18 Principal diagnosis: Septic shock; Ac encephalopathy; Multiple decubitus ulcers; Ac renal failur Interval history: Patient seen and examined. Medical records and medication list reviewed. No acute event overnight noted by the RN. Patient unable to provide any history with severe dementia Patient on nasal cannula , on tube feeding, no sign of active bleeding Discussed plan of care at bedside with RN. Discharge pending on placement Objective - Constitutional Vitals: Vital Signs - 12hr 10/15/18 10/15/18 10/15/18 07:40 09:48 09:49 Temperature 98.5 F Pulse Rate 87 87 87 Respiratory 18 Rate Blood Pressure 131/70 131/70 131/70 O2 Sat by Pulse 100 Oximetry 10/15/18 10/15/18 10:00 13:02 Temperature 97.3 F L Pulse Rate 87 Respiratory 20 18 Rate Blood Pressure 135/83 O2 Sat by Pulse 98 97 Oximetry - Labs CBC & Chem 7: 10/15/18 05:32 10/16/18 05:02 Labs: Abnormal lab results 10/14/18 10/15/18 10/15/18 Range/Units 18:33 05:32 05:32 RBC 2.93 L (3.65-5.03) M/mm3 Hgb 8.2 L (11.8-15.2) gm/dl Hct 25.4 L (35.5-45.6) % RDW 17.5 H (13.2-15.2) % Sodium 146 H (137-145) mmol/L Potassium 3.5 L D (3.6-5.0) mmol/L Chloride 111.1 H (98-107) mmol/L BUN 28 H (9-20) mg/dL Glucose 103 H (75-100) mg/dL POC Glucose 124 H (70-105) 10/15/18 Range/Units 11:59 RBC (3.65-5.03) M/mm3 Hgb (11.8-15.2) gm/dl Hct (35.5-45.6) % RDW (13.2-15.2) % Sodium (137-145) mmol/L Potassium (3.6-5.0) mmol/L Chloride (98-107) mmol/L BUN (9-20) mg/dL Glucose (75-100) mg/dL POC Glucose 110 H (70-105)
--- NOTE | 2018-10-15 17:07 | Progress Note ---
Assessment and Plan Patient awake. Not responding to verbal stimuli. Patient contracted. Patient is on 3 litres O2.O2 saturation 97%. No acute respiratory distress. - Patient Problems (1) Acute respiratory failure with hypoxia Current Visit: Yes Status: Acute Plan to address problem: O2 3 litres via nasal canula. Albuterol aerosol treatments q 6 hours. Continue S/C Heparin Continue famotidine. (2) Sepsis Current Visit: Yes Status: Acute Qualifiers: Sepsis type: sepsis due to unspecified organism Qualified Code(s): A41.9 - Sepsis, unspecified organism Plan to address problem: Patient is on vancomycin. (3) Decubitus ulcer Current Visit: No Status: Acute Plan to address problem: Wound care consultation. Patient is on vancomycin. (4) Diabetes Current Visit: No Status: Acute Plan to address problem: Management as per primary care. (5) HTN (hypertension) Current Visit: No Status: Acute Qualifiers: Hypertension type: essential hypertension Qualified Code(s): I10 - Ess ential (primary) hypertension Plan to address problem: Management as per primary care. Subjective Date of service: 10/15/18 Principal diagnosis: Septic shock; Ac encephalopathy; Multiple decubitus ulcers; Ac renal failur Interval history: Patient awake. Not responding to verbal stimuli. Patient contracted. Patient is on 3 litres O2.O2 saturation 97%. No acute respiratory distress. Objective Vital Signs - 12hr 10/15/18 10/15/18 10/15/18 07:40 09:48 09:49 Temperature 98.5 F Pulse Rate 87 87 87 Respiratory 18 Rate Blood Pressure 131/70 131/70 131/70 O2 Sat by Pulse 100 Oximetry 10/15/18 10/15/18 10:00 13:02 Temperature 97.3 F L Pulse Rate 87 Respiratory 20 18 Rate Blood Pressure 135/83 O2 Sat by Pulse 98 97 Oximetry Constitutional: no acute distress, asleep, other (elderly looking AAM, normocephalic but contrated and with mildly increased work of breathing at rest) Eyes: non-icteric ENT: oropharynx moist Neck: no lymphadenopathy, no JVD, other (neck stiff and deviated to the right side) Effort: mildly labored Ascultation: Bilateral: diminished breath sounds, rhonchi (scant) Percussion: Bilateral: not dull Cardiovascular: regular rate and rhythm Gastrointestinal: normoactive bowel sounds, soft, non-tender, non-distended, other (PEG tube) Integumentary: rash Extremities: no cyanosis, no edema, pulses normal, no ischemia or petechiae Neurologic: pupils equal and round, other (tardive dyskinetic movts) Psychiatric: other (unable to assess) CBC and BMP: 10/15/18 05:32 10/15/18 05:32 ABG, PT/INR, D-dimer: ABG POC ABG pH 7.480 (7.35-7.45) H 10/01/18 18:12 POC ABG pO2 64 (80-105) L 10/01/18 18:12 POC ABG HCO3 21.0 (22-26 mml/L) 10/01/18 18:12 POC ABG Total CO2 22 (23-27mmol/L) 10/01/18 18:12 POC ABG O2 Sat 94 10/01/18 18:12 Abnormal lab findings: Abnormal Labs 10/01/18 10/01/18 10/01/18 14:29 14:29 15:13 WBC 18.5 H RBC 2.68 L Hgb 7.3 L Hct 23.1 L MCH 27 L MCHC 31 L RDW 19.3 H Plt Count 522 H Lymph % (Auto) 6.7 L [place] % (Auto) Eos % (Auto) Lymph # [place] # 1.2 H Eos # Seg Neutrophils % 85.0 H Seg Neuts % (Manual) Lymphocytes % (Manual) Seg Neutrophils # 15.7 H Seg Neutrophils # Man Lymphocytes # (Manual) POC ABG pH POC ABG pO2 Sodium 148 H Potassium 3.3 L Chloride Carbon Dioxide BUN 98 H Creatinine 2.0 H Glucose 142 H POC Glucose Lactic Acid Calcium Phosphorus Magnesium AST Alkaline Phosphatase Troponin T 0.361 H* C-Reactive Protein Albumin Cholesterol 36 L LDL Cholesterol Direct 6 L HDL Cholesterol 21 L Urine WBC (Auto) > 182.0 H Urine Creatinine Vancomycin Trough Crossmatch 10/01/18 10/01/18 10/01/18 15:15 15:15 17:03 WBC RBC Hgb Hct MCH MCHC RDW Plt Count Lymph % (Auto) [place] % (Auto) Eos % (Auto) Lymph # [place] # Eos # Seg Neutrophils % Seg Neuts % (Manual) Lymphocytes % (Manual) Seg Neutrophils # Seg Neutrophils # Man Lymphocytes # (Manual) POC ABG pH POC ABG pO2 Sodium 150 H Potassium Chloride Carbon Dioxide BUN 94 H Creatinine 2.1 H Glucose 132 H POC Glucose Lactic Acid 2.60 H* 2.20 H* Calcium 7.8 L Phosphorus Magnesium AST 47 H Alkaline Phosphatase 179 H Troponin T C-Reactive Protein Albumin 2.1 L Cholesterol LDL Cholesterol Direct HDL Cholesterol Urine WBC (Auto) Urine Creatinine Vancomycin Trough Crossmatch 10/01/18 10/01/18 10/01/18 18:12 18:23 18:23 WBC RBC Hgb Hct MCH MCHC RDW Plt Count Lymph % (Auto) [place] % (Auto) Eos % (Auto) Lymph # [place] # Eos # Seg Neutrophils % Seg Neuts % (Manual) Lymphocytes % (Manual) Seg Neutrophils # Seg Neutrophils # Man Lymphocytes # (Manual) POC ABG pH 7.480 H POC ABG pO2 64 L Sodium Potassium Chloride Carbon Dioxide BUN Creatinine Glucose POC Glucose Lactic Acid Calcium Phosphorus Magnesium 3.30 H AST Alkaline Phosphatase Troponin T 0.378 H* C-Reactive Protein Albumin Cholesterol LDL Cholesterol Direct HDL Cholesterol Urine WBC (Auto) Urine Creatinine Vancomycin Trough Crossmatch 10/01/18 10/01/18 10/01/18 18:48 21:20 23:48 WBC RBC Hgb Hct MCH MCHC RDW Plt Count Lymph % (Auto) [place] % (Auto) Eos % (Auto) Lymph # [place] # Eos # Seg Neutrophils % Seg Neuts % (Manual) Lymphocytes % (Manual) Seg Neutrophils # Seg Neutrophils # Man Lymphocytes # (Manual) POC ABG pH POC ABG pO2 Sodium Potassium Chloride Carbon Dioxide BUN Creatinine Glucose POC Glucose Lactic Acid 2.30 H* 2.70 H* Calcium Phosphorus Magnesium AST Alkaline Phosphatase Troponin T 0.336 H* C-Reactive Protein Albumin Cholesterol LDL Cholesterol Direct HDL Cholesterol Urine WBC (Auto) Urine Creatinine Vancomycin Trough Crossmatch 10/01/18 10/02/18 10/02/18 23:48 04:45 04:45 WBC 18.3 H RBC 2.40 L Hgb 6.4 L Hct 20.4 L MCH 27 L MCHC 31 L RDW 19.1 H Plt Count 462 H Lymph % (Auto) [place] % (Auto) Eos % (Auto) Lymph # [place] # Eos # Seg Neutrophils % Seg Neuts % (Manual) 78.0 H Lymphocytes % (Manual) 5.0 L Seg Neutrophils # Seg Neutrophils # Man 14.3 H Lymphocytes # (Manual) 0.9 L POC ABG pH POC ABG pO2 Sodium Potassium Chloride Carbon Dioxide BUN Creatinine Glucose POC Glucose Lactic Acid 2.50 H* Calcium Phosphorus Magnesium AST Alkaline Phosphatase Troponin T C-Reactive Protein Albumin Cholesterol LDL Cholesterol Direct HDL Cholesterol Urine WBC (Auto) Urine Creatinine 74.7 H Vancomycin Trough Crossmatch 10/02/18 10/02/18 10/02/18 04:45 04:45 04:45 WBC RBC Hgb Hct MCH MCHC RDW Plt Count Lymph % (Auto) [place] % (Auto) Eos % (Auto) Lymph # [place] # Eos # Seg Neutrophils % Seg Neuts % (Manual) Lymphocytes % (Manual) Seg Neutrophils # Seg Neutrophils # Man Lymphocytes # (Manual) POC ABG pH POC ABG pO2 Sodium 148 H Potassium 3.1 L Chloride 108.6 H Carbon Dioxide 21 L BUN 89 H Creatinine 1.8 H Glucose POC Glucose Lactic Acid 2.10 H* Calcium 8.3 L Phosphorus 5.00 H Magnesium AST Alkaline Phosphatase 161 H Troponin T C-Reactive Protein Albumin 1.7 L Cholesterol LDL Cholesterol Direct HDL Cholesterol Urine WBC (Auto) Urine Creatinine Vancomycin Trough Crossmatch 10/02/18 10/02/18 10/03/18 09:46 11:47 00:03 WBC RBC Hgb Hct MCH MCHC RDW Plt Count Lymph % (Auto) [place] % (Auto) Eos % (Auto) Lymph # [place] # Eos # Seg Neutrophils % Seg Neuts % (Manual) Lymphocytes % (Manual) Seg Neutrophils # Seg Neutrophils # Man Lymphocytes # (Manual) POC ABG pH POC ABG pO2 Sodium Potassium Chloride Carbon Dioxide BUN Creatinine Glucose POC Glucose 112 H 106 H Lactic Acid Calcium Phosphorus Magnesium AST Alkaline Phosphatase Troponin T C-Reactive Protein Albumin Cholesterol LDL Cholesterol Direct HDL Cholesterol Urine WBC (Auto) Urine Creatinine Vancomycin Trough Crossmatch See Detail 10/03/18 10/03/18 10/03/18 06:06 06:45 06:45 WBC 17.3 H RBC 2.81 L Hgb 7.6 L Hct 24.1 L MCH 27 L MCHC 31 L RDW 18.4 H Plt Count 473 H Lymph % (Auto) 5.2 L [place] % (Auto) Eos % (Auto) 4.6 H Lymph # 0.9 L [place] # Eos # 0.8 H Seg Neutrophils % 85.7 H Seg Neuts % (Manual) Lymphocytes % (Manual) Seg Neutrophils # 14.8 H Seg Neutrophils # Man Lymphocytes # (Manual) POC ABG pH POC ABG pO2 Sodium 148 H Potassium Chloride 112.1 H Carbon Dioxide 21 L BUN 79 H Creatinine 1.7 H Glucose 116 H POC Glucose 130 H Lactic Acid Calcium 7.9 L Phosphorus Magnesium AST Alkaline Phosphatase Troponin T C-Reactive Protein Albumin Cholesterol LDL Cholesterol Direct HDL Cholesterol Urine WBC (Auto) Urine Creatinine Vancomycin Trough Crossmatch 10/03/18 10/03/18 10/03/18 11:50 17:42 23:20 WBC RBC Hgb Hct MCH MCHC RDW Plt Count Lymph % (Auto) [place] % (Auto) Eos % (Auto) Lymph # [place] # Eos # Seg Neutrophils % Seg Neuts % (Manual) Lymphocytes % (Manual) Seg Neutrophils # Seg Neutrophils # Man Lymphocytes # (Manual) POC ABG pH POC ABG pO2 Sodium Potassium Chloride Carbon Dioxide BUN Creatinine Glucose POC Glucose 126 H 118 H 106 H Lactic Acid Calcium Phosphorus Magnesium AST Alkaline Phosphatase Troponin T C-Reactive Protein Albumin Cholesterol LDL Cholesterol Direct HDL Cholesterol Urine WBC (Auto) Urine Creatinine Vancomycin Trough Crossmatch 10/04/18 10/04/18 10/04/18 05:22 07:00 07:00 WBC 14.8 H RBC 2.38 L Hgb 6.4 L Hct 20.5 L MCH 27 L MCHC 31 L RDW 18.2 H Plt Count Lymph % (Auto) 5.3 L [place] % (Auto) Eos % (Auto) 9.5 H Lymph # 0.8 L [place] # Eos # 1.4 H Seg Neutrophils % 81.2 H Seg Neuts % (Manual) Lymphocytes % (Manual) Seg Neutrophils # 12.0 H Seg Neutrophils # Man Lymphocytes # (Manual) POC ABG pH POC ABG pO2 Sodium 148 H Potassium Chloride 112.0 H Carbon Dioxide BUN 73 H Creatinine Glucose 105 H POC Glucose 115 H Lactic Acid Calcium 8.1 L Phosphorus Magnesium AST Alkaline Phosphatase Troponin T C-Reactive Protein Albumin 1.5 L Cholesterol LDL Cholesterol Direct HDL Cholesterol Urine WBC (Auto) Urine Creatinine Vancomycin Trough Crossmatch 10/04/18 10/04/18 10/05/18 12:35 18:28 04:20 WBC 14.1 H RBC 2.94 L Hgb 8.2 L Hct 25.2 L MCH MCHC RDW 17.9 H Plt Count Lymph % (Auto) 6.6 L [place] % (Auto) Eos % (Auto) 6.4 H Lymph # 0.9 L [place] # Eos # 0.9 H Seg Neutrophils % 82.7 H Seg Neuts % (Manual) Lymphocytes % (Manual) Seg Neutrophils # 11.6 H Seg Neutrophils # Man Lymphocytes # (Manual) POC ABG pH POC ABG pO2 Sodium Potassium Chloride Carbon Dioxide BUN Creatinine Glucose POC Glucose 109 H 109 H Lactic Acid Calcium Phosphorus Magnesium AST Alkaline Phosphatase Troponin T C-Reactive Protein Albumin Cholesterol LDL Cholesterol Direct HDL Cholesterol Urine WBC (Auto) Urine Creatinine Vancomycin Trough Crossmatch 10/05/18 10/05/18 10/05/18 04:20 11:45 17:32 WBC RBC Hgb Hct MCH MCHC RDW Plt Count Lymph % (Auto) [place] % (Auto) Eos % (Auto) Lymph # [place] # Eos # Seg Neutrophils % Seg Neuts % (Manual) Lymphocytes % (Manual) Seg Neutrophils # Seg Neutrophils # Man Lymphocytes # (Manual) POC ABG pH POC ABG pO2 Sodium Potassium Chloride 110.0 H Carbon Dioxide 21 L BUN 64 H Creatinine Glucose POC Glucose 118 H 113 H Lactic Acid Calcium 8.3 L Phosphorus Magnesium AST Alkaline Phosphatase Troponin T C-Reactive Protein Albumin Cholesterol LDL Cholesterol Direct HDL Cholesterol Urine WBC (Auto) Urine Creatinine Vancomycin Trough Crossmatch 10/06/18 10/06/18 10/06/18 05:15 05:15 05:35 WBC 12.3 H RBC 2.77 L Hgb 7.6 L Hct 24.1 L MCH MCHC RDW 18.1 H Plt Count Lymph % (Auto) 4.9 L [place] % (Auto) Eos % (Auto) 7.3 H Lymph # 0.6 L [place] # Eos # 0.9 H Seg Neutrophils % 81.1 H Seg Neuts % (Manual) Lymphocytes % (Manual) Seg Neutrophils # 10.0 H Seg Neutrophils # Man Lymphocytes # (Manual) POC ABG pH POC ABG pO2 Sodium 146 H Potassium Chloride 112.1 H Carbon Dioxide BUN 57 H Creatinine Glucose 120 H POC Glucose 115 H Lactic Acid Calcium Phosphorus Magnesium AST Alkaline Phosphatase Troponin T C-Reactive Protein Albumin Cholesterol LDL Cholesterol Direct HDL Cholesterol Urine WBC (Auto) Urine Creatinine Vancomycin Trough Crossmatch 10/06/18 10/06/18 10/06/18 12:31 18:44 Unknown WBC RBC Hgb Hct MCH MCHC RDW Plt Count Lymph % (Auto) [place] % (Auto) Eos % (Auto) Lymph # [place] # Eos # Seg Neutrophils % Seg Neuts % (Manual) Lymphocytes % (Manual) Seg Neutrophils # Seg Neutrophils # Man Lymphocytes # (Manual) POC ABG pH POC ABG pO2 Sodium Potassium Chloride Carbon Dioxide BUN Creatinine Glucose POC Glucose 150 H 125 H Lactic Acid Calcium Phosphorus Magnesium AST Alkaline Phosphatase Troponin T C-Reactive Protein Albumin Cholesterol LDL Cholesterol Direct HDL Cholesterol Urine WBC (Auto) Urine Creatinine Vancomycin Trough 23.5 H Crossmatch 10/07/18 10/07/18 10/07/18 05:06 05:06 08:34 WBC RBC Hgb 8.2 L Hct 25.8 L MCH MCHC RDW Plt Count Lymph % (Auto) [place] % (Auto) Eos % (Auto) Lymph # [place] # Eos # Seg Neutrophils % Seg Neuts % (Manual) Lymphocytes % (Manual) Seg Neutrophils # Seg Neutrophils # Man Lymphocytes # (Manual) POC ABG pH POC ABG pO2 Sodium Potassium Chloride 112.2 H Carbon Dioxide 21 L BUN 43 H Creatinine Glucose POC Glucose Lactic Acid Calcium 8.3 L Phosphorus Magnesium AST Alkaline Phosphatase Troponin T C-Reactive Protein Albumin Cholesterol LDL Cholesterol Direct HDL Cholesterol Urine WBC (Auto) Urine Creatinine Vancomycin Trough 23.0 H Crossmatch 10/08/18 10/08/18 10/08/18 05:07 05:07 11:09 WBC RBC 2.86 L Hgb 8.0 L Hct 24.5 L MCH MCHC RDW 18.7 H Plt Count Lymph % (Auto) 7.8 L [place] % (Auto) 8.2 H Eos % (Auto) 5.9 H Lymph # 0.8 L [place] # 0.9 H Eos # 0.6 H Seg Neutrophils % 77.8 H Seg Neuts % (Manual) Lymphocytes % (Manual) Seg Neutrophils # 8.2 H Seg Neutrophils # Man Lymphocytes # (Manual) POC ABG pH POC ABG pO2 Sodium Potassium 5.1 H Chloride 111.8 H Carbon Dioxide BUN 37 H Creatinine Glucose 101 H POC Glucose Lactic Acid Calcium 8.3 L Phosphorus Magnesium 2.50 H AST Alkaline Phosphatase Troponin T C-Reactive Protein 11.40 H Albumin Cholesterol LDL Cholesterol Direct HDL Cholesterol Urine WBC (Auto) Urine Creatinine Vancomycin Trough Crossmatch 10/09/18 10/10/18 10/10/18 05:48 09:02 09:02 WBC 13.6 H RBC 2.80 L Hgb 7.5 L Hct 23.9 L MCH 27 L MCHC 31 L RDW 18.9 H Plt Count Lymph % (Auto) 5.7 L [place] % (Auto) 8.5 H Eos % (Auto) Lymph # 0.8 L [place] # 1.1 H Eos # Seg Neutrophils % 83.9 H Seg Neuts % (Manual) Lymphocytes % (Manual) Seg Neutrophils # 11.4 H Seg Neutrophils # Man Lymphocytes # (Manual) POC ABG pH POC ABG pO2 Sodium Potassium 5.2 H 5.6 H Chloride 112.9 H 111.7 H Carbon Dioxide 21 L BUN 34 H 32 H Creatinine 0.7 L Glucose 109 H POC Glucose Lactic Acid Calcium Phosphorus Magnesium AST Alkaline Phosphatase Troponin T C-Reactive Protein Albumin Cholesterol LDL Cholesterol Direct HDL Cholesterol Urine WBC (Auto) Urine Creatinine Vancomycin Trough Crossmatch 10/11/18 10/11/18 10/11/18 04:41 04:41 09:09 WBC 11.4 H RBC 2.52 L Hgb 6.9 L Hct 22.0 L MCH 27 L MCHC 31 L RDW 19.0 H Plt Count Lymph % (Auto) [place] % (Auto) Eos % (Auto) Lymph # [place] # Eos # Seg Neutrophils % Seg Neuts % (Manual) Lymphocytes % (Manual) Seg Neutrophils # Seg Neutrophils # Man Lymphocytes # (Manual) POC ABG pH POC ABG pO2 Sodium 146 H Potassium Chloride 113.0 H Carbon Dioxide BUN 30 H Creatinine Glucose POC Glucose Lactic Acid Calcium 8.2 L Phosphorus Magnesium AST Alkaline Phosphatase Troponin T C-Reactive Protein Albumin Cholesterol LDL Cholesterol Direct HDL Cholesterol Urine WBC (Auto) Urine Creatinine Vancomycin Trough Crossmatch See Detail 10/11/18 10/12/18 10/12/18 23:29 04:22 04:22 WBC RBC 2.98 L Hgb 8.3 L Hct 25.5 L MCH MCHC RDW 17.7 H Plt Count Lymph % (Auto) [place] % (Auto) Eos % (Auto) Lymph # [place] # Eos # Seg Neutrophils % Seg Neuts % (Manual) Lymphocytes % (Manual) Seg Neutrophils # Seg Neutrophils # Man Lymphocytes # (Manual) POC ABG pH POC ABG pO2 Sodium 146 H 146 H Potassium Chloride 110.6 H 112.8 H Carbon Dioxide BUN 30 H 29 H Creatinine Glucose 102 H POC Glucose Lactic Acid Calcium 8.2 L Phosphorus 4.60 H Magnesium AST Alkaline Phosphatase Troponin T C-Reactive Protein Albumin Cholesterol LDL Cholesterol Direct HDL Cholesterol Urine WBC (Auto) Urine Creatinine Vancomycin Trough Crossmatch 10/13/18 10/13/18 10/14/18 23:00 23:00 00:15 WBC RBC 2.95 L Hgb 8.6 L Hct 25.4 L MCH MCHC RDW 18.1 H Plt Count Lymph % (Auto) [place] % (Auto) Eos % (Auto) Lymph # [place] # Eos # Seg Neutrophils % Seg Neuts % (Manual) Lymphocytes % (Manual) Seg Neutrophils # Seg Neutrophils # Man Lymphocytes # (Manual) POC ABG pH POC ABG pO2 Sodium Potassium 5.4 H Chloride 111.4 H Carbon Dioxide BUN 30 H Creatinine Glucose 107 H POC Glucose 151 H Lactic Acid Calcium Phosphorus Magnesium AST Alkaline Phosphatase Troponin T C-Reactive Protein Albumin Cholesterol LDL Cholesterol Direct HDL Cholesterol Urine WBC (Auto) Urine Creatinine Vancomycin Trough Crossmatch 10/14/18 10/14/18 10/15/18 07:18 18:33 05:32 WBC RBC Hgb Hct MCH MCHC RDW Plt Count Lymph % (Auto) [place] % (Auto) Eos % (Auto) Lymph # [place] # Eos # Seg Neutrophils % Seg Neuts % (Manual) Lymphocytes % (Manual) Seg Neutrophils # Seg Neutrophils # Man Lymphocytes # (Manual) POC ABG pH POC ABG pO2 Sodium 146 H Potassium 5.3 H 3.5 L D Chloride 112.3 H 111.1 H Carbon Dioxide BUN 29 H 28 H Creatinine Glucose 106 H 103 H POC Glucose 124 H Lactic Acid Calcium Phosphorus Magnesium AST Alkaline Phosphatase Troponin T C-Reactive Protein Albumin Cholesterol LDL Cholesterol Direct HDL Cholesterol Urine WBC (Auto) Urine Creatinine Vancomycin Trough Crossmatch 10/15/18 10/15/18 05:32 11:59 WBC RBC 2.93 L Hgb 8.2 L Hct 25.4 L MCH MCHC RDW 17.5 H Plt Count Lymph % (Auto) [place] % (Auto) Eos % (Auto) Lymph # [place] # Eos # Seg Neutrophils % Seg Neuts % (Manual) Lymphocytes % (Manual) Seg Neutrophils # Seg Neutrophils # Man Lymphocytes # (Manual) POC ABG pH POC ABG pO2 Sodium Potassium Chloride Carbon Dioxide BUN Creatinine Glucose POC Glucose 110 H Lactic Acid Calcium Phosphorus Magnesium AST Alkaline Phosphatase Troponin T C-Reactive Protein Albumin Cholesterol LDL Cholesterol Direct HDL Cholesterol Urine WBC (Auto) Urine Creatinine Vancomycin Trough Crossmatch Allied health notes reviewed: nursing
[2018-10-16 06:33] LABS: BUN/Creatinine Ratio 39; Blood Urea Nitrogen 27 mg/dL (9-20); Calcium 8.6 mg/dL (8.4-10.2); Hemolysis Index 19
[2018-10-16] MEDS: HumaLOG SUB-Q SCH ×4 (07:53→18:27)
--- NOTE | 2018-10-16 08:52 | Progress Note ---
Assessment and Plan 1. Acute kidney injury: Vasomotor / hemodynamic MÓNICA in the setting of hypotension, sepsis and volume depletion. Renal function is better. Monitor renal function. Avoid nephrotoxic agents. Meds dosage based on GFR. 2. FEN: Hypokalemia, replete K. Hypernatremia, improving. Monitor lytes. 3. Sepsis with shock: MRSA bacteremia. Multiple decubiti. Followed by ID. 4. Acute hypoxic respiratory failure. 5. Anemia: PRBC. 6. Encephalopathy. Subjective Date of service: 10/16/18 Principal diagnosis: Septic shock; Ac encephalopathy; Multiple decubitus ulcers; Ac renal failur Interval history: Patient was seen and examined at the bedside. Objective - Vital Signs Vital signs: Vital Signs - 12hr 10/15/18 10/15/18 10/16/18 21:20 23:52 04:22 Temperature 98.7 F 98.5 F Pulse Rate 78 77 74 Respiratory 20 20 Rate Blood Pressure 138/62 134/60 147/69 O2 Sat by Pulse 97 100 Oximetry 10/16/18 08:00 Temperature 97.0 F L Pulse Rate 78 Respiratory 20 Rate Blood Pressure 134/66 O2 Sat by Pulse 99 Oximetry - General Appearance General appearance: well-developed, appears stated age, other (not in distress) EENT: ATNC, PERRL Neck: other (Trachea midline) Respiratory: Present: Clear to Ascultation Cardiology: regular, S1S2, no murmurs Gastrointestinal: normoactive bowel sounds, no tenderness, other (PEG tube noted, Chaudhary catheter) Integumentary: ulcer, decubiti Neurologic: other (able to tell his name, not following any command) Musculoskeletal: other (contractures noted) - Lab 10/15/18 05:32 10/17/18 06:00 Most recent lab results Calcium 8.6 mg/dL (8.4-10.2) 10/16/18 05:02 Phosphorus 4.50 mg/dL (2.5-4.5) 10/12/18 04:22 Magnesium 2.30 mg/dL (1.7-2.3) 10/12/18 04:22 74.7 mg/dL (0.1-20.0) H 10/02/18 04:45 21 mmol/L 10/02/18 04:45 Medications & Allergies - Medications Allergies/Adverse Reactions: Allergies lisinopril Allergy (Verified 10/01/18 15:17) Unknown tramadol Allergy (Verified 07/29/18 18:39) Unknown Home Medications: Home Medications Medication Instructions Recorded Confirmed Last Taken Type Multivit-Min/Iron Fum/Folic AC 1 each PO DAILY 03/24/18 10/03/18 Unknown History [Pbwbl-Qauyrrh-Syzdwutp Tablet] Acetaminophen 650 mg NGTUBE Q6H PRN 07/30/18 10/03/18 Unknown History AtorvaSTATin [Lipitor] 40 mg NGTUBE QHS 07/30/18 10/03/18 Unknown History Dutasteride 0.5 mg NGTUBE QAM 07/30/18 10/03/18 Unknown History Ipratropium/Albuterol Sulfate 1 ampul IH BID 07/30/18 10/03/18 Unknown History [DUONEB *Not for PRN Use*] Lisinopril [Zestril TAB] 40 mg PO QDAY 07/30/18 10/03/18 Unknown History Tamsulosin [Flomax] 0.4 mg PO QDAY 07/30/18 10/03/18 Unknown History Vit C/Ascorbate Calcium,Sodium 500 mg NGTUBE BID 07/30/18 10/03/18 Unknown History [Vitamin C 500 mg/15 ml Liquid] Zinc Sulfate 220 mg NGTUBE QDAY 07/30/18 10/03/18 Unknown History levETIRAcetam [Keppra INJ] 500 mg PO Q12H 07/30/18 10/03/18 Unknown History Carvedilol [Coreg] 3.125 mg PO BID #60 tablet 08/23/18 10/03/18 Unknown Rx Furosemide [Lasix] 20 mg PO QDAY #30 tablet 08/23/18 10/03/18 Unknown Rx Oxycodone HCl/Acetaminophen 1 each PO Q8HR PRN #14 tablet 08/23/18 10/03/18 Unknown Rx [Percocet 7.5/325 mg] Phosphorus #1 [K-Phos Neutral] 250 mg PO QID #30 tablet 08/23/18 10/03/18 Unknown Rx hydroCHLOROthiazide [HCTZ] 12.5 mg PO QDAY #30 tablet 08/23/18 10/03/18 Unknown Rx Active Medications: Generic Name Dose Route Start Last Admin Trade Name Freq PRN Reason Stop Dose Admin Acetaminophen 650 mg 10/01/18 15:32 10/14/18 21:09 Tylenol FEEDTUBE 650 mg Q6H PRN Administration Pain, Moderate (4-6) Albuterol 2.5 mg 10/01/18 17:40 10/04/18 21:02 Proventil IH 2.5 mg Q3HRT PRN Administration Shortness Of Breath Lipase/Protease/Amylase 1 each 10/15/18 10:41 Pancreazadela Moore 10,500 Unit FEEDTUBE PRN PRN For Clogged Feeding Tube Ascorbic Acid 500 mg 10/04/18 10:00 10/15/18 21:20 Vitamin C FEEDTUBE 500 mg BID NORA Administration Atorvastatin Calcium 40 mg 10/01/18 22:00 10/15/18 21:49 Lipitor FEEDTUBE 40 mg QHS NORA Administration Carvedilol 6.25 mg 10/13/18 22:00 10/15/18 21:20 Coreg PO 6.25 mg BID NORA Administration Clonidine HCl 0.2 mg 10/08/18 10:00 10/15/18 09:48 Catapres-Tts Patch TD 0.2 mg Tu NORA Administration Famotidine 20 mg 10/03/18 12:00 10/15/18 09:49 Pepcid PO 20 mg DAILY NORA Administration Heparin Sodium (Porcine) 5,000 unit 10/01/18 22:00 10/15/18 21:20 Heparin SUB-Q 5,000 unit Q12HR NORA Administration Hydralazine HCl 10 mg 10/07/18 15:12 10/07/18 18:00 Apresoline IV 10 mg Q4HR PRN Administration Blood Pressure Hydrochlorothiazide 25 mg 10/11/18 09:00 10/15/18 09:49 Hctz PO 25 mg QDAY NORA Administration Vancomycin HCl 1 gm in 250 mls @ 167.007 mls/hr 10/08/18 10:00 10/14/18 11:05 Vancomycin/Ns 1 Gm/250 Ml IV 11/12/18 09:59 167.007 mls/hr Q48HR NORA Administration Insulin Human Lispro 0 unit 10/13/18 12:00 10/16/18 07:53 Humalog SUB-Q Not Given Q6HR [facility] Protocol Levetiracetam 500 mg 10/01/18 22:00 10/15/18 21:21 Keppra PO 500 mg BID NORA Administration Multivitamins 1 each 10/02/18 10:00 10/15/18 09:49 Theragran Tab PO 1 each DAILY NORA Administration Oxycodone/Acetaminophen 1 tab 10/02/18 20:16 10/08/18 23:23 Percocet 5/325 PO 1 tab Q4H PRN Administration Pain, Moderate (4-6) Simple Syrup 15 ml 10/15/18 10:41 Simple Syrup FEEDTUBE PRN PRN Hypoglycemia Simple Syrup 30 ml 10/15/18 10:41 Simple Syrup FEEDTUBE PRN PRN Hypoglycemia Sodium Bicarbonate 325 mg 10/15/18 10:41 Sodium Bicarbonate FEEDTUBE PRN PRN For Clogged Feeding Tube Sodium Chloride 10 ml 10/01/18 22:00 10/15/18 21:21 Sodium Chloride Flush Syringe 10 Ml IV 10 ml BID NORA Administration Sodium Chloride 10 ml 10/01/18 17:40 10/05/18 21:30 Sodium Chloride Flush Syringe 10 Ml IV 10 ml PRN PRN Administration LINE FLUSH Zinc Sulfate 220 mg 10/02/18 10:00 10/15/18 09:51 Zinc Sulfate PO 220 mg QDAY NORA Administration
[2018-10-16] MEDS ORDERED: HEPARIN/NS 5000 UNIT/500ML(CATH LAB) 500 ML IR ONE (10:46)
[2018-10-16] MEDS ORDERED: NACL 0.9% 500 ML 500 ML ONE (10:47)
[2018-10-16] MEDS ORDERED: VERSED ONE (10:48)
[2018-10-16] MEDS ORDERED: SUBLIMAZE ONE (10:48)
[2018-10-16] MEDS ORDERED: K-DUR PO ONE ×2 (11:00→17:00)
[2018-10-16] MEDS: XYLOCAINE 2% INFILTRATI ONE ×2 (11:37→11:46)
--- NOTE | 2018-10-16 12:03 | Operative Report ---
Operative Report Operative Report: Exam: Ultrasound and fluoroscopic guided placement of tunneled central venous catheter Clinical indication: Patient with bacteremia requiring long-term antibiotics. Central venous catheter needed. Date: 10/16/2018 Procedure: Following an explanation of the risks, benefits and alternatives; written informed consent was obtained. The patient was brought to the angiographic suite and placed in supine position on the examination table. Initial ultrasound evaluation of the left neck demonstrated a patent left internal jugular vein. The patient's left neck and chest wall were prepped and draped in the usual sterile fashion. 1% lidocaine was used for anesthesia. Under ultrasound guidance, the left internal jugular vein was cannulated with a 7 cm 21-gauge needle. A 0.018 guidewire was advanced centrally under fluoroscopy. The needle was removed and a micro-sheath placed. The 0.018 mandrel wire was exchanged for a long 0.018 access wire which was advanced under fluoroscopy through the sheath into the IVC to document intravenous positioning. Images were saved. An appropriate catheter exit site was chosen along the lateral chest wall. 1% lidocaine was used for anesthesia at the catheter exit site and along the tunnel tract. A bard dual-lumen power picc was then tunneled antegrade from the catheter exit site to the venotomy site. Following serial dilation, an 8 [place] peel-away sheath was placed over the guidewire. The guidewire was withdrawn proximally and used to measure the internal portion of the PICC. The PICC was cut to length and inserted through the peel-away sheath to position the tip in the proximal right atrium. The peel-away sheath was removed. Both ports flush ed and aspirated easily and were then locked sterile saline. The venotomy was closed using 4-0 Vicryl suture, Dermabond and Steri-Strips. 3-0 Ethilon was applied to the catheter exit site. The catheter wasn't securely fastened using a StatLock device. A sterile dressing was applied. The patient tolerated the procedure well. There were no immediate postprocedure complications. A minimal amount of Versed was used for anxiolysis. Conscious sedation was not utilized. Continuous cardiopulmonary monitoring was utilized. Impression: Ultrasound and fluoroscopic guided placement of tunneled picc via the left internal jugular vein
--- NOTE | 2018-10-16 15:38 | Progress Note ---
Assessment and Plan / Severe sepsis with shock, POA due to bacteremia, UTI and RUL PNA continue Sepsis Protocol: IV antibiotic therapy, IVF resuscitation therapy, MRSA on Blood cultures, s/p IV pressors , ID consulted Per ID: - Continue vancomycin now for MRSA bacteremia. So far no clear source for MRSA bacteremia but suspected possible infected decubitus ulcer - treated with meropenem for 5 days to cover UTI as urine culture was not sent and he has h/o MDR GNRs - Anticipate discharge on Vancomycin 1 gm every 48 hours for total 6 weeks ending 11-12-18 - Again, this infection is incurable, patient's family has been advised hospice several times in the past but refused /MRSA bacteremia - possible source infected decubitus ulcer - cont vanc, ID following, 2d echo showed no vegetation /Decubitus ulcer, multiple with different stages - cont wound care, abx per ID - Could be the source for bacteremia, ID ordered for WBC scan but could not be done because of his chronic contracture/anatomical position /Anemia, s/p 2 units blood transfusion, likely AOCD and severe sepsis - stool for occult blood negative, cont to monitor / MÓNICA with vasomotor nephropathy renal function stable with IVF resuscitation therapy, monitor uop q shift, nephrology consulted in ED. /Right upper lobe Pneumonia, suspect aspiration Treated with IV antibiotic therapy, supplemental oxygen, pulse oximetry, / Elevated troponin Likely due to sepsis with low blood pressure and renal failure Monitor with Serial cardiac enzymes, Cardiology consulted in ED, No EKG changes, supportive care, / UTI (lower urinary tract infection) Treated with IV antibiotic therapy, IV fluids /Acute hypoxic Respiratory failure Likely due to underlying pneumonia Continue to provide Supplemental oxygen, nebulizer therapy, NIPPV as clinically indicated, pulse oximetry, /Moderate to severe protein calorie malnutrition - BMI 17.8, albumin 1.7 - consulted dietary, continue tube feeding for now hypernatremia, on hypotonic saline Hypokalemia/hyperkalemia, -cont to monitor /Hypertension, placed on clonidine patch / DVT prophylaxis SCD to BLE while in bed, prophylactic heparin Disposition: SNF when isolation bed available Brief History: 67 YO Male [facility] Resident as [facility] with HTN, CVA, Obstructive Uropathy, Contracture, Decubitus Ulcers, RI, DM, OA, Seizure Disorder, COPD, Dementia, Debility, BPH presented to ED for evaluation, As per staff, the patient was found to have decreased responsiveness compared to baseline. Pt seen and evaluated in ED and found to have Sepsis secondary to UTI with concomitant RUL Pneumonia with a QSofa score of 8, GCS:3, MAP less than 70, Creatnine:2.1, Encephalopathy, and symptomatic anemia. Pt was admitted to ICU and initiated on Sepsis protocol. Now being treated for MRSA bacteremia. Radiological data: Chest x-ray: Limited exam. Mild cardiomegaly. The lungs are grossly clear although there is poor visualization of the right upper lobe. 2-D echo: Preserved EF with abnormal left ventricular diastolic filling pressure Hospitalist Physical exam: GENERAL: Elderly male lying on bed appeared to be in no discomfort. It appears to be very lethargic and aphasic HEENT: Normocephalic. Atraumatic. No conjunctival congestion or icterus. Patient has moist mucous membranes. NECK: Supple. Trachea midline. CHEST/LUNGS: Clear to auscultated bilaterally, breathing nonlabored. No wheezes crackles or rhonchi. HEART/CARDIOVASCULAR: Regular in rate and rhythm. S1 and S2 positive. ABDOMEN: Abdomen is soft, nontender. Patient has normal bowel sounds. SKIN: There is no rash. Warm and dry. NEURO: Does not Follow command. MUSCULOSKELETAL: No joint effusion, generalized weakness unable to move extremities EXTRIMITY: No edema, no cyanosis or clubbing. PSYCH: Unable to assess. Subjective Date of service: 10/16/18 Principal diagnosis: Septic shock; Ac encephalopathy; Multiple decubitus ulcers; Ac renal failur Interval history: Patient seen and examined. Medical records and medication list reviewed. No acute event overnight noted by the RN. Patient unable to provide any history with severe dementia Patient on nasal cannula , on tube feeding, no sign of active bleeding Discussed plan of care at bedside with RN. Discharge pending on placement Objective - Constitutional Vitals: Vital Signs - 12hr 10/16/18 10/16/18 10/16/18 04:22 08:00 13:20 Temperature 98.5 F 97.0 F L 98.3 F Pulse Rate 74 78 Respiratory 20 20 24 Rate Blood Pressure 147/69 134/66 156/83 Blood Pressure [Left] O2 Sat by Pulse 100 99 Oximetry 10/16/18 13:22 Temperature 98.3 F Pulse Rate 86 Respiratory 24 Rate Blood Pressure Blood Pressure 156/83 [Left] O2 Sat by Pulse 93 Oximetry - Labs CBC & Chem 7: 10/15/18 05:32 10/16/18 05:02 Labs: Abnormal lab results 10/16/18 10/16/18 Range/Units 00:02 05:02 Potassium 3.3 L (3.6-5.0) mmol/L Chloride 108.9 H (98-107) mmol/L BUN 27 H (9-20) mg/dL Creatinine 0.7 L (0.8-1.5) mg/dL POC Glucose 107 H (70-105)
[2018-10-16] MEDS: ZINC SULFATE PO SCH (16:09)
[2018-10-16] MEDS: COREG PO SCH ×2 (16:09→23:24)
[2018-10-16] MEDS: VITAMIN C FEEDTUBE SCH ×2 (16:09→23:24)
[2018-10-16] MEDS: VANCOMYCIN/NS 1 GM/250 ML 1 GM/250 ML BAG IV SCH (16:09)
[2018-10-16] MEDS: KEPPRA PO SCH ×2 (16:09→23:24)
[2018-10-16] MEDS: HCTZ PO SCH (16:09)
[2018-10-16] MEDS: THERAGRAN Tab PO SCH (16:09)
[2018-10-16] MEDS: HEPARIN SUB-Q SCH ×2 (16:10→23:24)
[2018-10-16] MEDS: PEPCID PO SCH (16:10)
[2018-10-16] MEDS: SODIUM CHLORIDE FLUSH SYRINGE 10 ML IV SCH ×2 (16:10→23:25)
--- NOTE | 2018-10-16 17:33 | Progress Note ---
Assessment and Plan Patient has ultrasound and fluoroscopic guided placement of tunneled central venous catheter. Patient resting on 3L O2. O2 Sat 93%. Patient contracted No acute respiratory distress. - Patient Problems (1) Acute respiratory failure with hypoxia Current Visit: Yes Status: Acute Plan to address problem: O2 3 litres via nasal canula. Albuterol aerosol treatments q 6 hours. Continue S/C Heparin Continue famotidine. (2) Sepsis Current Visit: Yes Status: Acute Qualifiers: Sepsis type: sepsis due to unspecified organism Qualified Code(s): A41.9 - Sepsis, unspecified organism Plan to address problem: Patient is on vancomycin. (3) Decubitus ulcer Current Visit: No Status: Acute Plan to address problem: Wound care consultation. Patient is on vancomycin. (4) Diabetes Current Visit: No Status: Acute Plan to address problem: Management as per primary care. (5) HTN (hypertension) Current Visit: No Status: Acute Qualifiers: Hypertension type: essential hypertension Qualified Code(s): I10 - Essential (primary) hypertension Plan to address problem: Management as per primary care. Subjective Date of service: 10/16/18 Principal diagnosis: Septic shock; Ac encephalopathy; Multiple decubitus ulcers; Ac renal failur Interval history: Patient has ultrasound and fluoroscopic guided placement of tunneled central venous catheter. Patient resting on 3L O2. O2 Sat 93%. Patient contracted No acute respiratory distress. Objective Vital Signs - 12hr 10/16/18 10/16/18 10/16/18 08:00 13:20 13:22 Temperature 97.0 F L 98.3 F 98.3 F Pulse Rate 78 86 Respiratory 20 24 24 Rate Blood Pressure 134/66 156/83 Blood Pressure 156/83 [Left] O2 Sat by Pulse 99 93 Oximetry 10/16/18 15:38 Temperature 98.4 F Pulse Rate 94 H Respiratory 22 Rate Blood Pressure 160/83 Blood Pressure [Left] O2 Sat by Pulse 93 Oximetry Constitutional: no acute distress, asleep, other (elderly looking AAM, normocephalic but contrated and with mildly increased work of breathing at rest) Eyes: non-icteric ENT: oropharynx moist Neck: no lymphadenopathy, no JVD, other (neck stiff and deviated to the right side) Effort: mildly labored Ascultation: Bilateral: diminished breath sounds, rhonchi (scant) Percussion: Bilateral: not dull Cardiovascular: regular rate and rhythm Gastrointestinal: normoactive bowel sounds, soft, non-tender, non-distended, other (PEG tube) Integumentary: rash Extremities: no cyanosis, no edema, pulses normal, no ischemia or petechiae Neurologic: pupils equal and round, other (tardive dyskinetic movts) Psychiatric: other (unable to assess) CBC and BMP: 10/15/18 05:32 10/16/18 05:02 ABG, PT/INR, D-dimer: ABG POC ABG pH 7.480 (7.35-7.45) H 10/01/18 18:12 POC ABG pO2 64 (80-105) L 10/01/18 18:12 POC ABG HCO3 21.0 (22-26 mml/L) 10/01/18 18:12 POC ABG Total CO2 22 (23-27mmol/L) 10/01/18 18:12 POC ABG O2 Sat 94 10/01/18 18:12 Abnormal lab findings: Abnormal Labs 10/01/18 10/01/18 10/01/18 14:29 14:29 15:13 WBC 18.5 H RBC 2.68 L Hgb 7.3 L Hct 23.1 L MCH 27 L MCHC 31 L RDW 19.3 H Plt Count 522 H Lymph % (Auto) 6.7 L [place] % (Auto) Eos % (Auto) Lymph # [place] # 1.2 H Eos # Seg Neutrophils % 85.0 H Seg Neuts % (Manual) Lymphocytes % (Manual) Seg Neutrophils # 15.7 H Seg Neutrophils # Man Lymphocytes # (Manual) POC ABG pH POC ABG pO2 Sodium 148 H Potassium 3.3 L Chloride Carbon Dioxide BUN 98 H Creatinine 2.0 H Glucose 142 H POC Glucose Lactic Acid Calcium Phosphorus Magnesium AST Alkaline Phosphatase Troponin T 0.361 H* C-Reactive Protein Albumin Cholesterol 36 L LDL Cholesterol Direct 6 L HDL Cholesterol 21 L Urine WBC (Auto) > 182.0 H Urine Creatinine Vancomycin Trough Crossmatch 10/01/18 10/01/18 10/01/18 15:15 15:15 17:03 WBC RBC Hgb Hct MCH MCHC RDW Plt Count Lymph % (Auto) [place] % (Auto) Eos % (Auto) Lymph # [place] # Eos # Seg Neutrophils % Seg Neuts % (Manual) Lymphocytes % (Manual) Seg Neutrophils # Seg Neutrophils # Man Lymphocytes # (Manual) POC ABG pH POC ABG pO2 Sodium 150 H Potassium Chloride Carbon Dioxide BUN 94 H Creatinine 2.1 H Glucose 132 H POC Glucose Lactic Acid 2.60 H* 2.20 H* Calcium 7.8 L Phosphorus Magnesium AST 47 H Alkaline Phosphatase 179 H Troponin T C-Reactive Protein Albumin 2.1 L Cholesterol LDL Cholesterol Direct HDL Cholesterol Urine WBC (Auto) Urine Creatinine Vancomycin Trough Crossmatch 10/01/18 10/01/18 10/01/18 18:12 18:23 18:23 WBC RBC Hgb Hct MCH MCHC RDW Plt Count Lymph % (Auto) [place] % (Auto) Eos % (Auto) Lymph # [place] # Eos # Seg Neutrophils % Seg Neuts % (Manual) Lymphocytes % (Manual) Seg Neutrophils # Seg Neutrophils # Man Lymphocytes # (Manual) POC ABG pH 7.480 H POC ABG pO2 64 L Sodium Potassium Chloride Carbon Dioxide BUN Creatinine Glucose POC Glucose Lactic Acid Calcium Phosphorus Magnesium 3.30 H AST Alkaline Phosphatase Troponin T 0.378 H* C-Reactive Protein Albumin Cholesterol LDL Cholesterol Direct HDL Cholesterol Urine WBC (Auto) Urine Creatinine Vancomycin Trough Crossmatch 10/01/18 10/01/18 10/01/18 18:48 21:20 23:48 WBC RBC Hgb Hct MCH MCHC RDW Plt Count Lymph % (Auto) [place] % (Auto) Eos % (Auto) Lymph # [place] # Eos # Seg Neutrophils % Seg Neuts % (Manual) Lymphocytes % (Manual) Seg Neutrophils # Seg Neutrophils # Man Lymphocytes # (Manual) POC ABG pH POC ABG pO2 Sodium Potassium Chloride Carbon Dioxide BUN Creatinine Glucose POC Glucose Lactic Acid 2.30 H* 2.70 H* Calcium Phosphorus Magnesium AST Alkaline Phosphatase Troponin T 0.336 H* C-Reactive Protein Albumin Cholesterol LDL Cholesterol Direct HDL Cholesterol Urine WBC (Auto) Urine Creatinine Vancomycin Trough Crossmatch 10/01/18 10/02/18 10/02/18 23:48 04:45 04:45 WBC 18.3 H RBC 2.40 L Hgb 6.4 L Hct 20.4 L MCH 27 L MCHC 31 L RDW 19.1 H Plt Count 462 H Lymph % (Auto) [place] % (Auto) Eos % (Auto) Lymph # [place] # Eos # Seg Neutrophils % Seg Neuts % (Manual) 78.0 H Lymphocytes % (Manual) 5.0 L Seg Neutrophils # Seg Neutrophils # Man 14.3 H Lymphocytes # (Manual) 0.9 L POC ABG pH POC ABG pO2 Sodium Potassium Chloride Carbon Dioxide BUN Creatinine Glucose POC Glucose Lactic Acid 2.50 H* Calcium Phosphorus Magnesium AST Alkaline Phosphatase Troponin T C-Reactive Protein Albumin Cholesterol LDL Cholesterol Direct HDL Cholesterol Urine WBC (Auto) Urine Creatinine 74.7 H Vancomycin Trough Crossmatch 10/02/18 10/02/18 10/02/18 04:45 04:45 04:45 WBC RBC Hgb Hct MCH MCHC RDW Plt Count Lymph % (Auto) [place] % (Auto) Eos % (Auto) Lymph # [place] # Eos # Seg Neutrophils % Seg Neuts % (Manual) Lymphocytes % (Manual) Seg Neutrophils # Seg Neutrophils # Man Lymphocytes # (Manual) POC ABG pH POC ABG pO2 Sodium 148 H Potassium 3.1 L Chloride 108.6 H Carbon Dioxide 21 L BUN 89 H Creatinine 1.8 H Glucose POC Glucose Lactic Acid 2.10 H* Calcium 8.3 L Phosphorus 5.00 H Magnesium AST Alkaline Phosphatase 161 H Troponin T C-Reactive Protein Albumin 1.7 L Cholesterol LDL Cholesterol Direct HDL Cholesterol Urine WBC (Auto) Urine Creatinine Vancomycin Trough Crossmatch 10/02/18 10/02/18 10/03/18 09:46 11:47 00:03 WBC RBC Hgb Hct MCH MCHC RDW Plt Count Lymph % (Auto) [place] % (Auto) Eos % (Auto) Lymph # [place] # Eos # Seg Neutrophils % Seg Neuts % (Manual) Lymphocytes % (Manual) Seg Neutrophils # Seg Neutrophils # Man Lymphocytes # (Manual) POC ABG pH POC ABG pO2 Sodium Potassium Chloride Carbon Dioxide BUN Creatinine Glucose POC Glucose 112 H 106 H Lactic Acid Calcium Phosphorus Magnesium AST Alkaline Phosphatase Troponin T C-Reactive Protein Albumin Cholesterol LDL Cholesterol Direct HDL Cholesterol Urine WBC (Auto) Urine Creatinine Vancomycin Trough Crossmatch See Detail 10/03/18 10/03/18 10/03/18 06:06 06:45 06:45 WBC 17.3 H RBC 2.81 L Hgb 7.6 L Hct 24.1 L MCH 27 L MCHC 31 L RDW 18.4 H Plt Count 473 H Lymph % (Auto) 5.2 L [place] % (Auto) Eos % (Auto) 4.6 H Lymph # 0.9 L [place] # Eos # 0.8 H Seg Neutrophils % 85.7 H Seg Neuts % (Manual) Lymphocytes % (Manual) Seg Neutrophils # 14.8 H Seg Neutrophils # Man Lymphocytes # (Manual) POC ABG pH POC ABG pO2 Sodium 148 H Potassium Chloride 112.1 H Carbon Dioxide 21 L BUN 79 H Creatinine 1.7 H Glucose 116 H POC Glucose 130 H Lactic Acid Calcium 7.9 L Phosphorus Magnesium AST Alkaline Phosphatase Troponin T C-Reactive Protein Albumin Cholesterol LDL Cholesterol Direct HDL Cholesterol Urine WBC (Auto) Urine Creatinine Vancomycin Trough Crossmatch 10/03/18 10/03/18 10/03/18 11:50 17:42 23:20 WBC RBC Hgb Hct MCH MCHC RDW Plt Count Lymph % (Auto) [place] % (Auto) Eos % (Auto) Lymph # [place] # Eos # Seg Neutrophils % Seg Neuts % (Manual) Lymphocytes % (Manual) Seg Neutrophils # Seg Neutrophils # Man Lymphocytes # (Manual) POC ABG pH POC ABG pO2 Sodium Potassium Chloride Carbon Dioxide BUN Creatinine Glucose POC Glucose 126 H 118 H 106 H Lactic Acid Calcium Phosphorus Magnesium AST Alkaline Phosphatase Troponin T C-Reactive Protein Albumin Cholesterol LDL Cholesterol Direct HDL Cholesterol Urine WBC (Auto) Urine Creatinine Vancomycin Trough Crossmatch 10/04/18 10/04/18 10/04/18 05:22 07:00 07:00 WBC 14.8 H RBC 2.38 L Hgb 6.4 L Hct 20.5 L MCH 27 L MCHC 31 L RDW 18.2 H Plt Count Lymph % (Auto) 5.3 L [place] % (Auto) Eos % (Auto) 9.5 H Lymph # 0.8 L [place] # Eos # 1.4 H Seg Neutrophils % 81.2 H Seg Neuts % (Manual) Lymphocytes % (Manual) Seg Neutrophils # 12.0 H Seg Neutrophils # Man Lymphocytes # (Manual) POC ABG pH POC ABG pO2 Sodium 148 H Potassium Chloride 112.0 H Carbon Dioxide BUN 73 H Creatinine Glucose 105 H POC Glucose 115 H Lactic Acid Calcium 8.1 L Phosphorus Magnesium AST Alkaline Phosphatase Troponin T C-Reactive Protein Albumin 1.5 L Cholesterol LDL Cholesterol Direct HDL Cholesterol Urine WBC (Auto) Urine Creatinine Vancomycin Trough Crossmatch 10/04/18 10/04/18 10/05/18 12:35 18:28 04:20 WBC 14.1 H RBC 2.94 L Hgb 8.2 L Hct 25.2 L MCH MCHC RDW 17.9 H Plt Count Lymph % (Auto) 6.6 L [place] % (Auto) Eos % (Auto) 6.4 H Lymph # 0.9 L [place] # Eos # 0.9 H Seg Neutrophils % 82.7 H Seg Neuts % (Manual) Lymphocytes % (Manual) Seg Neutrophils # 11.6 H Seg Neutrophils # Man Lymphocytes # (Manual) POC ABG pH POC ABG pO2 Sodium Potassium Chloride Carbon Dioxide BUN Creatinine Glucose POC Glucose 109 H 109 H Lactic Acid Calcium Phosphorus Magnesium AST Alkaline Phosphatase Troponin T C-Reactive Protein Albumin Cholesterol LDL Cholesterol Direct HDL Cholesterol Urine WBC (Auto) Urine Creatinine Vancomycin Trough Crossmatch 10/05/18 10/05/18 10/05/18 04:20 11:45 17:32 WBC RBC Hgb Hct MCH MCHC RDW Plt Count Lymph % (Auto) [place] % (Auto) Eos % (Auto) Lymph # [place] # Eos # Seg Neutrophils % Seg Neuts % (Manual) Lymphocytes % (Manual) Seg Neutrophils # Seg Neutrophils # Man Lymphocytes # (Manual) POC ABG pH POC ABG pO2 Sodium Potassium Chloride 110.0 H Carbon Dioxide 21 L BUN 64 H Creatinine Glucose POC Glucose 118 H 113 H Lactic Acid Calcium 8.3 L Phosphorus Magnesium AST Alkaline Phosphatase Troponin T C-Reactive Protein Albumin Cholesterol LDL Cholesterol Direct HDL Cholesterol Urine WBC (Auto) Urine Creatinine Vancomycin Trough Crossmatch 10/06/18 10/06/18 10/06/18 05:15 05:15 05:35 WBC 12.3 H RBC 2.77 L Hgb 7.6 L Hct 24.1 L MCH MCHC RDW 18.1 H Plt Count Lymph % (Auto) 4.9 L [place] % (Auto) Eos % (Auto) 7.3 H Lymph # 0.6 L [place] # Eos # 0.9 H Seg Neutrophils % 81.1 H Seg Neuts % (Manual) Lymphocytes % (Manual) Seg Neutrophils # 10.0 H Seg Neutrophils # Man Lymphocytes # (Manual) POC ABG pH POC ABG pO2 Sodium 146 H Potassium Chloride 112.1 H Carbon Dioxide BUN 57 H Creatinine Glucose 120 H POC Glucose 115 H Lactic Acid Calcium Phosphorus Magnesium AST Alkaline Phosphatase Troponin T C-Reactive Protein Albumin Cholesterol LDL Cholesterol Direct HDL Cholesterol Urine WBC (Auto) Urine Creatinine Vancomycin Trough Crossmatch 10/06/18 10/06/18 10/06/18 12:31 18:44 Unknown WBC RBC Hgb Hct MCH MCHC RDW Plt Count Lymph % (Auto) [place] % (Auto) Eos % (Auto) Lymph # [place] # Eos # Seg Neutrophils % Seg Neuts % (Manual) Lymphocytes % (Manual) Seg Neutrophils # Seg Neutrophils # Man Lymphocytes # (Manual) POC ABG pH POC ABG pO2 Sodium Potassium Chloride Carbon Dioxide BUN Creatinine Glucose POC Glucose 150 H 125 H Lactic Acid Calcium Phosphorus Magnesium AST Alkaline Phosphatase Troponin T C-Reactive Protein Albumin Cholesterol LDL Cholesterol Direct HDL Cholesterol Urine WBC (Auto) Urine Creatinine Vancomycin Trough 23.5 H Crossmatch 10/07/18 10/07/18 10/07/18 05:06 05:06 08:34 WBC RBC Hgb 8.2 L Hct 25.8 L MCH MCHC RDW Plt Count Lymph % (Auto) [place] % (Auto) Eos % (Auto) Lymph # [place] # Eos # Seg Neutrophils % Seg Neuts % (Manual) Lymphocytes % (Manual) Seg Neutrophils # Seg Neutrophils # Man Lymphocytes # (Manual) POC ABG pH POC ABG pO2 Sodium Potassium Chloride 112.2 H Carbon Dioxide 21 L BUN 43 H Creatinine Glucose POC Glucose Lactic Acid Calcium 8.3 L Phosphorus Magnesium AST Alkaline Phosphatase Troponin T C-Reactive Protein Albumin Cholesterol LDL Cholesterol Direct HDL Cholesterol Urine WBC (Auto) Urine Creatinine Vancomycin Trough 23.0 H Crossmatch 10/08/18 10/08/18 10/08/18 05:07 05:07 11:09 WBC RBC 2.86 L Hgb 8.0 L Hct 24.5 L MCH MCHC RDW 18.7 H Plt Count Lymph % (Auto) 7.8 L [place] % (Auto) 8.2 H Eos % (Auto) 5.9 H Lymph # 0.8 L [place] # 0.9 H Eos # 0.6 H Seg Neutrophils % 77.8 H Seg Neuts % (Manual) Lymphocytes % (Manual) Seg Neutrophils # 8.2 H Seg Neutrophils # Man Lymphocytes # (Manual) POC ABG pH POC ABG pO2 Sodium Potassium 5.1 H Chloride 111.8 H Carbon Dioxide BUN 37 H Creatinine Glucose 101 H POC Glucose Lactic Acid Calcium 8.3 L Phosphorus Magnesium 2.50 H AST Alkaline Phosphatase Troponin T C-Reactive Protein 11.40 H Albumin Cholesterol LDL Cholesterol Direct HDL Cholesterol Urine WBC (Auto) Urine Creatinine Vancomycin Trough Crossmatch 10/09/18 10/10/1819 05:48 09:02 09:02 WBC 13.6 H RBC 2.80 L Hgb 7.5 L Hct 23.9 L MCH 27 L MCHC 31 L RDW 18.9 H Plt Count Lymph % (Auto) 5.7 L [place] % (Auto) 8.5 H Eos % (Auto) Lymph # 0.8 L [place] # 1.1 H Eos # Seg Neutrophils % 83.9 H Seg Neuts % (Manual) Lymphocytes % (Manual) Seg Neutrophils # 11.4 H Seg Neutrophils # Man Lymphocytes # (Manual) POC ABG pH POC ABG pO2 Sodium Potassium 5.2 H 5.6 H Chloride 112.9 H 111.7 H Carbon Dioxide 21 L BUN 34 H 32 H Creatinine 0.7 L Glucose 109 H POC Glucose Lactic Acid Calcium Phosphorus Magnesium AST Alkaline Phosphatase Troponin T C-Reactive Protein Albumin Cholesterol LDL Cholesterol Direct HDL Cholesterol Urine WBC (Auto) Urine Creatinine Vancomycin Trough Crossmatch 10/11/18 10/11/18 10/11/18 04:41 04:41 09:09 WBC 11.4 H RBC 2.52 L Hgb 6.9 L Hct 22.0 L MCH 27 L MCHC 31 L RDW 19.0 H Plt Count Lymph % (Auto) [place] % (Auto) Eos % (Auto) Lymph # [place] # Eos # Seg Neutrophils % Seg Neuts % (Manual) Lymphocytes % (Manual) Seg Neutrophils # Seg Neutrophils # Man Lymphocytes # (Manual) POC ABG pH POC ABG pO2 Sodium 146 H Potassium Chloride 113.0 H Carbon Dioxide BUN 30 H Creatinine Glucose POC Glucose Lactic Acid Calcium 8.2 L Phosphorus Magnesium AST Alkaline Phosphatase Troponin T C-Reactive Protein Albumin Cholesterol LDL Cholesterol Direct HDL Cholesterol Urine WBC (Auto) Urine Creatinine Vancomycin Trough Crossmatch See Detail 10/11/18 10/12/18 10/12/18 23:29 04:22 04:22 WBC RBC 2.98 L Hgb 8.3 L Hct 25.5 L MCH MCHC RDW 17.7 H Plt Count Lymph % (Auto) [place] % (Auto) Eos % (Auto) Lymph # [place] # Eos # Seg Neutrophils % Seg Neuts % (Manual) Lymphocytes % (Manual) Seg Neutrophils # Seg Neutrophils # Man Lymphocytes # (Manual) POC ABG pH POC ABG pO2 Sodium 146 H 146 H Potassium Chloride 110.6 H 112.8 H Carbon Dioxide BUN 30 H 29 H Creatinine Glucose 102 H POC Glucose Lactic Acid Calcium 8.2 L Phosphorus 4.60 H Magnesium AST Alkaline Phosphatase Troponin T C-Reactive Protein Albumin Cholesterol LDL Cholesterol Direct HDL Cholesterol Urine WBC (Auto) Urine Creatinine Vancomycin Trough Crossmatch 10/13/18 10/13/18 10/14/18 23:00 23:00 00:15 WBC RBC 2.95 L Hgb 8.6 L Hct 25.4 L MCH MCHC RDW 18.1 H Plt Count Lymph % (Auto) [place] % (Auto) Eos % (Auto) Lymph # [place] # Eos # Seg Neutrophils % Seg Neuts % (Manual) Lymphocytes % (Manual) Seg Neutrophils # Seg Neutrophils # Man Lymphocytes # (Manual) POC ABG pH POC ABG pO2 Sodium Potassium 5.4 H Chloride 111.4 H Carbon Dioxide BUN 30 H Creatinine Glucose 107 H POC Glucose 151 H Lactic Acid Calcium Phosphorus Magnesium AST Alkaline Phosphatase Troponin T C-Reactive Protein Albumin Cholesterol LDL Cholesterol Direct HDL Cholesterol Urine WBC (Auto) Urine Creatinine Vancomycin Trough Crossmatch 10/14/18 10/14/18 10/15/18 07:18 18:33 05:32 WBC RBC Hgb Hct MCH MCHC RDW Plt Count Lymph % (Auto) [place] % (Auto) Eos % (Auto) Lymph # [place] # Eos # Seg Neutrophils % Seg Neuts % (Manual) Lymphocytes % (Manual) Seg Neutrophils # Seg Neutrophils # Man Lymphocytes # (Manual) POC ABG pH POC ABG pO2 Sodium 146 H Potassium 5.3 H 3.5 L D Chloride 112.3 H 111.1 H Carbon Dioxide BUN 29 H 28 H Creatinine Glucose 106 H 103 H POC Glucose 124 H Lactic Acid Calcium Phosphorus Magnesium AST Alkaline Phosphatase Troponin T C-Reactive Protein Albumin Cholesterol LDL Cholesterol Direct HDL Cholesterol Urine WBC (Auto) Urine Creatinine Vancomycin Trough Crossmatch 10/15/18 10/15/18 10/16/18 05:32 11:59 00:02 WBC RBC 2.93 L Hgb 8.2 L Hct 25.4 L MCH MCHC RDW 17.5 H Plt Count Lymph % (Auto) [place] % (Auto) Eos % (Auto) Lymph # [place] # Eos # Seg Neutrophils % Seg Neuts % (Manual) Lymphocytes % (Manual) Seg Neutrophils # Seg Neutrophils # Man Lymphocytes # (Manual) POC ABG pH POC ABG pO2 Sodium Potassium Chloride Carbon Dioxide BUN Creatinine Glucose POC Glucose 110 H 107 H Lactic Acid Calcium Phosphorus Magnesium AST Alkaline Phosphatase Troponin T C-Reactive Protein Albumin Cholesterol LDL Cholesterol Direct HDL Cholesterol Urine WBC (Auto) Urine Creatinine Vancomycin Trough Crossmatch 10/16/18 05:02 WBC RBC Hgb Hct MCH MCHC RDW Plt Count Lymph % (Auto) [place] % (Auto) Eos % (Auto) Lymph # [place] # Eos # Seg Neutrophils % Seg Neuts % (Manual) Lymphocytes % (Manual) Seg Neutrophils # Seg Neutrophils # Man Lymphocytes # (Manual) POC ABG pH POC ABG pO2 Sodium Potassium 3.3 L Chloride 108.9 H Carbon Dioxide BUN 27 H Creatinine 0.7 L Glucose POC Glucose Lactic Acid Calcium Phosphorus Magnesium AST Alkaline Phosphatase Troponin T C-Reactive Protein Albumin Cholesterol LDL Cholesterol Direct HDL Cholesterol Urine WBC (Auto) Urine Creatinine Vancomycin Trough Crossmatch Allied health notes reviewed: nursing
--- NOTE | 2018-10-16 21:06 | Progress Note ---
Assessment and Plan Cultures: Blood culture 10/01/2018 MRSA 2 of 4. Blood culture 10/03/2018 no growth Assessment: 67 y/o male with hsitory of HTN, CVA, Obstructive Uropathy, Contracture, Multiple Decubitus Ulcers, IN, DM, OA, Seizure Disorder, COPD, Dementia, Debility, BPH, well known to ID due to multiple admissions from ducubitus ulcers infections, resident of long term, admitted on due to decreased respo nsiveness compared to baseline and hypotension SBP in 60's: 1) Severe Sepsis with septic shock: new isolated fever. Etiology most likely Staph bacteremia. 2) MRSA bacteremia: source likely multiple decubitus or UTI. Blood culture 10/01/2018 GPC in clusters 2 of 4. TTE no negative. 3) Recent septic shock due to polymicrobial bacteremia ESBL E coli, MDR Proteus, Strep and E faecalis on 07/29/2018 probably from multiple infected decubitus ulcers and less likely UTI. Repeat blood cultures 07/31/2018 showed same MDR E coli 1 of 4 bottles then 08/06/2018 blood cultures showed no growth. Patient did not respond to carbapenem and was placed on vabomere for 14 days. 4) Multiple infected decubitus ulcers: currently active large left trochanteric with bone exposure and sacral with bone exposure. His prognosis has been poor and discussed previously with family hospice indication but they declined. His wounds are not curable considering his contractures, bed bound status and poor nutritional status. There was also suspicion of septic arthritis of left hip from decubitus ulcer. 5) Recurrent CAUTI 6) Acute encephalopathy: resolved. 7) MÓNICA: resolved with high K. 8) Low grade fever: ? resolved Recommendations: - Vascular to place a tunneled central venous catheter likely on the left side. - Continue wound care - Continue vancomycin D15 for MRSA bacteremia. - WBC tagged scan ordered - Unable to perform because of contractions - Anticipate discharge on Vancomycin 1 gm every 48 hours for total 6 weeks ending 11-12-18 - Again, this infection is incurable, patient's family has been advised hospice several times in the past but refused Will follow. Penny Bernardo MD Infectious Diseases Apartment Maintenance Manager [facility] M [phone] O [phone] Subjective Date of service: 10/16/18 Principal diagnosis: Septic shock; Ac encephalopathy; Multiple decubitus ulcers; Ac renal failur Interval history: Feels ok alert, talking, no fever for 2 days ROS limited confused Objective - Exam Narrative Exam: General appearance: Alert in NAD verbal Eyes: anicteric sclerae, moist conjunctivae; no lid-lag; PERRLA HENT: Atraumatic; oropharynx limited Neck: Trachea midline; supple, no thyromegaly or lymphadenopathy Lungs: scattered rhonchi CV: rrr Abdomen: Soft, non-tender;PEG Extremities: altaf contracted legs, multiple wounds covered Skin: multiple skin tears Psych: no agitated Neuro: alert non verbal no agitated WOUND CARE EVAL LEFT TROCHANTER STAGE 4 PRESSURE INJURY. LARGE AMOUNT OF YELLOW DRAINAGE. NO ODOR. WOUND PROBES TO A DEPTH OF 8CM. 6X6X8. THERE IS BONE EXPOSED. CLEANSED WITH WOUND CLEANSER. PACKED WITH 2 PIECES OF 4X4 ALGINATE. COVERED WITH 4X4 GAUZE, THEN TELFA. STAGE 4 SACRAL PRESSURE INJURY NOTED. PINK GRANULATION TISSUE. MODERATE AMOUNT OF YELLOW DRAINAGE. BONE IS EXPOSED. PERIWOUND SKIN IS INTACT. MEASURES [id number] CLEANSED WITH WOUND CLEANSER. ALGINATE APPLIED. COVERED WITH 4X4 GAUZE, THEN TELFA. - Constitutional Vitals: Vital Signs Temp Pulse Resp BP Pulse Ox 99.2 F 92 H 18 148/78 96 10/16/18 19:26 10/16/18 19:26 10/16/18 19:26 10/16/18 19:26 10/16/18 20:34 Temperature -Last 24 Hours Temperature 99.2 F Temperature 98.4 F Temperature 98.3 F Temperature 98.3 F Temperature 97.0 F Temperature 98.5 F Temperature 98.7 F - Labs CBC & Chem 7: 10/15/18 05:32 10/16/18 05:02 Labs: Abnormal lab results 10/16/18 10/16/18 Range/Units 00:02 05:02 Potassium 3.3 L (3.6-5.0) mmol/L Chloride 108.9 H (98-107) mmol/L BUN 27 H (9-20) mg/dL Creatinine 0.7 L (0.8-1.5) mg/dL POC Glucose 107 H (70-105)
[2018-10-17] MEDS: HumaLOG SUB-Q SCH ×4 (01:02→17:59)
[2018-10-17 06:57] LABS: BUN/Creatinine Ratio 33; Blood Urea Nitrogen 26 mg/dL (9-20); Calcium 8.4 mg/dL (8.4-10.2); Hemolysis Index 1
--- NOTE | 2018-10-17 10:13 | Progress Note ---
Assessment and Plan 1. Acute kidney injury: Vasomotor / hemodynamic MÓNICA in the setting of hypotension, sepsis and volume depletion. Renal function is better. Monitor renal function. Avoid nephrotoxic agents. Meds dosage based on GFR. 2. FEN: Hypokalemia, replete K as needed. Hypernatremia, improved. Monitor lytes. 3. Sepsis with shock: MRSA bacteremia. Multiple decubiti. Followed by ID. 4. Acute hypoxic respiratory failure. 5. Anemia: PRBC. 6. Encephalopathy. Will see patient intermittently. Subjective Date of service: 10/17/18 Principal diagnosis: Septic shock; Ac encephalopathy; Multiple decubitus ulcers; Ac renal failur Interval history: Patient was seen and examined at the bedside. Objective - Vital Signs Vital signs: Vital Signs - 12hr 10/16/18 10/16/18 10/17/18 23:22 23:24 03:38 Temperature 98.6 F 99.4 F Pulse Rate 85 92 H 84 Respiratory 18 19 Rate Blood Pressure 145/75 148/78 136/69 Blood Pressure [Left] O2 Sat by Pulse 100 98 Oximetry 10/17/18 10/17/18 08:00 08:35 Temperature 98.6 F Pulse Rate 93 H 84 Respiratory 18 Rate Blood Pressure Blood Pressure 183/88 [Left] O2 Sat by Pulse 100 Oximetry - General Appearance General appearance: well-developed, appears stated age, other (not in distress) EENT: ATNC, PERRL Respiratory: Present: Clear to Ascultation Cardiology: regular, S1S2, no murmurs Gastrointestinal: normoactive bowel sounds, no tenderness, no distended Integumentary: ulcer, decubiti Neurologic: other (not following any command, able to tell his name) Musculoskeletal: other (contractures noted) - Lab 10/15/18 05:32 10/17/18 06:00 Most recent lab results Calcium 8.4 mg/dL (8.4-10.2) 10/17/18 06:00 Phosphorus 4.50 mg/dL (2.5-4.5) 10/12/18 04:22 Magnesium 2.30 mg/dL (1.7-2.3) 10/12/18 04:22 74.7 mg/dL (0.1-20.0) H 10/02/18 04:45 21 mmol/L 10/02/18 04:45 Medications & Allergies - Medications Allergies/Adverse Reactions: Allergies lisinopril Allergy (Verified 10/01/18 15:17) Unknown tramadol Allergy (Verified 07/29/18 18:39) Unknown Home Medications: Home Medications Medication Instructions Recorded Confirmed Last Taken Type Multivit-Min/Iron Fum/Folic AC 1 each PO DAILY 03/24/18 10/03/18 Unknown History [Cegiq-Vegocml-Tltqwehr Tablet] Acetaminophen 650 mg NGTUBE Q6H PRN 07/30/18 10/03/18 Unknown History AtorvaSTATin [Lipitor] 40 mg NGTUBE QHS 07/30/18 10/03/18 Unknown History Dutasteride 0.5 mg NGTUBE QAM 07/30/18 10/03/18 Unknown History Ipratropium/Albuterol Sulfate 1 ampul IH BID 07/30/18 10/03/18 Unknown History [DUONEB *Not for PRN Use*] Lisinopril [Zestril TAB] 40 mg PO QDAY 07/30/18 10/03/18 Unknown History Tamsulosin [Flomax] 0.4 mg PO QDAY 07/30/18 10/03/18 Unknown History Vit C/Ascorbate Calcium,Sodium 500 mg NGTUBE BID 07/30/18 10/03/18 Unknown History [Vitamin C 500 mg/15 ml Liquid] Zinc Sulfate 220 mg NGTUBE QDAY 07/30/18 10/03/18 Unknown History levETIRAcetam [Keppra INJ] 500 mg PO Q12H 07/30/18 10/03/18 Unknown History Carvedilol [Coreg] 3.125 mg PO BID #60 tablet 08/23/18 10/03/18 Unknown Rx Furosemide [Lasix] 20 mg PO QDAY #30 tablet 08/23/18 10/03/18 Unknown Rx Oxycodone HCl/Acetaminophen 1 each PO Q8HR PRN #14 tablet 08/23/18 10/03/18 Unknown Rx [Percocet 7.5/325 mg] Phosphorus #1 [K-Phos Neutral] 250 mg PO QID #30 tablet 08/23/18 10/03/18 Unknown Rx hydroCHLOROthiazide [HCTZ] 12.5 mg PO QDAY #30 tablet 08/23/18 10/03/18 Unknown Rx Active Medications: Generic Name Dose Route Start Last Admin Trade Name Amishq PRN Reason Stop Dose Admin Acetaminophen 650 mg 10/01/18 15:32 10/14/18 21:09 Tylenol FEEDTUBE 650 mg Q6H PRN Administration Pain, Moderate (4-6) Albuterol 2.5 mg 10/01/18 17:40 10/04/18 21:02 Proventil IH 2.5 mg Q3HRT PRN Administration Shortness Of Breath Lipase/Protease/Amylase 1 each 10/15/18 10:41 Pancreaze 10,500 Unit FEEDTUBE PRN PRN For Clogged Feeding Tube Ascorbic Acid 500 mg 10/04/18 10:00 10/16/18 23:24 Vitamin C FEEDTUBE 500 mg BID NORA Administration Atorvastatin Calcium 40 mg 10/01/18 22:00 10/16/18 23:24 Lipitor FEEDTUBE 40 mg QHS NORA Administration Carvedilol 6.25 mg 10/13/18 22:00 10/16/18 23:24 Coreg PO 6.25 mg BID NORA Administration Clonidine HCl 0.2 mg 10/08/18 10:00 10/15/18 09:48 Catapres-Tts Patch TD 0.2 mg Tu NORA Administration Famotidine 20 mg 10/03/18 12:00 10/16/18 16:10 Pepcid PO 20 mg DAILY NORA Administration Heparin Sodium (Porcine) 5,000 unit 10/01/18 22:00 10/16/18 23:24 Heparin SUB-Q 5,000 unit Q12HR NORA Administration Hydralazine HCl 10 mg 10/07/18 15:12 10/07/18 18:00 Apresoline IV 10 mg Q4HR PRN Administration Blood Pressure Hydrochlorothiazide 25 mg 10/11/18 09:00 10/16/18 16:09 Hctz PO 25 mg QDAY NORA Administration Vancomycin HCl 1 gm in 250 mls @ 167.007 mls/hr 10/08/18 10:00 10/16/18 16:09 Vancomycin/Ns 1 Gm/250 Ml IV 11/12/18 09:59 167.007 mls/hr Q48HR NORA Administration Insulin Human Lispro 0 unit 10/13/18 12:00 10/17/18 06:34 Humalog SUB-Q Not Given Q6HR [facility] Protocol Levetiracetam 500 mg 10/01/18 22:00 10/16/18 23:24 Keppra PO 500 mg BID NORA Administration Multivitamins 1 each 10/02/18 10:00 10/16/18 16:09 Theragran Tab PO 1 each DAILY NORA Administration Oxycodone/Acetaminophen 1 tab 10/02/18 20:16 10/08/18 23:23 Percocet 5/325 PO 1 tab Q4H PRN Administration Pain, Moderate (4-6) Simple Syrup 15 ml 10/15/18 10:41 Simple Syrup FEEDTUBE PRN PRN Hypoglycemia Simple Syrup 30 ml 10/15/18 10:41 Simple Syrup FEEDTUBE PRN PRN Hypoglycemia Sodium Bicarbonate 325 mg 10/15/18 10:41 Sodium Bicarbonate FEEDTUBE PRN PRN For Clogged Feeding Tube Sodium Chloride 10 ml 10/01/18 22:00 10/16/18 23:25 Sodium Chloride Flush Syringe 10 Ml IV 10 ml BID NORA Administration Sodium Chloride 10 ml 10/01/18 17:40 10/05/18 21:30 Sodium Chloride Flush Syringe 10 Ml IV 10 ml PRN PRN Administration LINE FLUSH Zinc Sulfate 220 mg 10/02/18 10:00 10/16/18 16:09 Zinc Sulfate PO 220 mg QDAY NORA Administration
--- NOTE | 2018-10-17 13:39 | Progress Note ---
Assessment and Plan Severe Sepsis with septic shock GPC bacteremia Acute encephalopathy Multiple decubitus ulcers Acute metabolic encephaloapthy Hypernatremia (resolved) Recurrent CAUTI Lactic acidosis Acute renal failure- prerenal/vasomotor nephropathy - continue to wean supplemental oxygen for O2 sats>90% - continue GI & VTE prophylaxis - follow clinically s/p AB's course - continue aspiration precautions - continue enteral nutrition at goal rate as tolerated - continue to monitor renal indices closely (improving) - MÓNICA resolved - continue mobility protocol as tolerated for pressure ulcer prophylaxis - wound care per WCT - continue accuchecks with glycemic control per SSI for target glucose of 140- 180 mg/dL - continue bronchodilators with pulmonary hygiene per RT - Influenza and pneumonia vaccination per protocol .... discharge planning ongoing concurrently ...re-evaluate in am & prn Subjective Date of service: 10/17/18 Principal diagnosis: Septic shock; Ac encephalopathy; Multiple decubitus ulcers; Ac renal failur Interval history: Patient is seen today for: Severe Sepsis with septic shock; GPC bacteremia; Acute encephalopathy; Multiple decubitus ulcers; Acute metabolic encephaloapthy; Hypernatremia; Recurrent CAUTI; Lactic acidosis; Acute renal failure- prerenal/vasomotor nephropathy Seen and examined at bedside; 24hour events reviewed; nursing and respiratory care staff consulted; no adverse overnight events reported to me; resting peacefully in bed; no emesis or overt aspiration; nods head no to pain question; no gross bleeding Objective Vital Signs - 12hr 10/17/18 10/17/18 10/17/18 03:38 08:00 08:35 Temperature 99.4 F 98.6 F Pulse Rate 84 93 H 84 Respiratory 19 18 Rate Blood Pressure 136/69 Blood Pressure 183/88 [Left] O2 Sat by Pulse 98 100 Oximetry Constitutional: no acute distress, asleep, other (elderly looking AAM, normocephalic but contrated and with mildly increased work of breathing at rest) Eyes: non-icteric ENT: oropharynx moist Neck: no lymphadenopathy, no JVD, other (neck stiff and deviated to the right side) Effort: normal Ascultation: Bilateral: diminished breath sounds, rhonchi (scant) Percussion: Bilateral: not dull Cardiovascular: regular rate and rhythm Gastrointestinal: normoactive bowel sounds, soft, non-tender, non-distended, other (PEG tube) Integumentary: rash Extremities: no cyanosis, no edema, pulses normal, no ischemia or petechiae Neurologic: pupils equal and round, other (tardive dyskinetic movts) Psychiatric: other (unable to assess) CBC and BMP: 10/15/18 05:32 10/17/18 06:00 ABG, PT/INR, D-dimer: ABG POC ABG pH 7.480 (7.35-7.45) H 10/01/18 18:12 POC ABG pO2 64 (80-105) L 10/01/18 18:12 POC ABG HCO3 21.0 (22-26 mml/L) 10/01/18 18:12 POC ABG Total CO2 22 (23-27mmol/L) 10/01/18 18:12 POC ABG O2 Sat 94 10/01/18 18:12 Abnormal lab findings: Abnormal Labs 10/01/18 10/01/18 10/01/18 14:29 14:29 15:13 WBC 18.5 H RBC 2.68 L Hgb 7.3 L Hct 23.1 L MCH 27 L MCHC 31 L RDW 19.3 H Plt Count 522 H Lymph % (Auto) 6.7 L Johnston % (Auto) Eos % (Auto) Lymph # Johnston # 1.2 H Eos # Seg Neutrophils % 85.0 H Seg Neuts % (Manual) Lymphocytes % (Manual) Seg Neutrophils # 15.7 H Seg Neutrophils # Man Lymphocytes # (Manual) POC ABG pH POC ABG pO2 Sodium 148 H Potassium 3.3 L Chloride Carbon Dioxide BUN 98 H Creatinine 2.0 H Glucose 142 H POC Glucose Lactic Acid Calcium Phosphorus Magnesium AST Alkaline Phosphatase Troponin T 0.361 H* C-Reactive Protein Albumin Cholesterol 36 L LDL Cholesterol Direct 6 L HDL Cholesterol 21 L Urine WBC (Auto) > 182.0 H Urine Creatinine Vancomycin Trough Crossmatch 10/01/18 10/01/18 10/01/18 15:15 15:15 17:03 WBC RBC Hgb Hct MCH MCHC RDW Plt Count Lymph % (Auto) Johnston % (Auto) Eos % (Auto) Lymph # Johnston # Eos # Seg Neutrophils % Seg Neuts % (Manual) Lymphocytes % (Manual) Seg Neutrophils # Seg Neutrophils # Man Lymphocytes # (Manual) POC ABG pH POC ABG pO2 Sodium 150 H Potassium Chloride Carbon Dioxide BUN 94 H Creatinine 2.1 H Glucose 132 H POC Glucose Lactic Acid 2.60 H* 2.20 H* Calcium 7.8 L Phosphorus Magnesium AST 47 H Alkaline Phosphatase 179 H Troponin T C-Reactive Protein Albumin 2.1 L Cholesterol LDL Cholesterol Direct HDL Cholesterol Urine WBC (Auto) Urine Creatinine Vancomycin Trough Crossmatch 10/01/18 10/01/18 10/01/18 18:12 18:23 18:23 WBC RBC Hgb Hct MCH MCHC RDW Plt Count Lymph % (Auto) [place] % (Auto) Eos % (Auto) Lymph # [place] # Eos # Seg Neutrophils % Seg Neuts % (Manual) Lymphocytes % (Manual) Seg Neutrophils # Seg Neutrophils # Man Lymphocytes # (Manual) POC ABG pH 7.480 H POC ABG pO2 64 L Sodium Potassium Chloride Carbon Dioxide BUN Creatinine Glucose POC Glucose Lactic Acid Calcium Phosphorus Magnesium 3.30 H AST Alkaline Phosphatase Troponin T 0.378 H* C-Reactive Protein Albumin Cholesterol LDL Cholesterol Direct HDL Cholesterol Urine WBC (Auto) Urine Creatinine Vancomycin Trough Crossmatch 10/01/18 10/01/18 10/01/18 18:48 21:20 23:48 WBC RBC Hgb Hct MCH MCHC RDW Plt Count Lymph % (Auto) [place] % (Auto) Eos % (Auto) Lymph # [place] # Eos # Seg Neutrophils % Seg Neuts % (Manual) Lymphocytes % (Manual) Seg Neutrophils # Seg Neutrophils # Man Lymphocytes # (Manual) POC ABG pH POC ABG pO2 Sodium Potassium Chloride Carbon Dioxide BUN Creatinine Glucose POC Glucose Lactic Acid 2.30 H* 2.70 H* Calcium Phosphorus Magnesium AST Alkaline Phosphatase Troponin T 0.336 H* C-Reactive Protein Albumin Cholesterol LDL Cholesterol Direct HDL Cholesterol Urine WBC (Auto) Urine Creatinine Vancomycin Trough Crossmatch 10/01/18 10/02/18 10/02/18 23:48 04:45 04:45 WBC 18.3 H RBC 2.40 L Hgb 6.4 L Hct 20.4 L MCH 27 L MCHC 31 L RDW 19.1 H Plt Count 462 H Lymph % (Auto) Johnston % (Auto) Eos % (Auto) Lymph # Johnston # Eos # Seg Neutrophils % Seg Neuts % (Manual) 78.0 H Lymphocytes % (Manual) 5.0 L Seg Neutrophils # Seg Neutrophils # Man 14.3 H Lymphocytes # (Manual) 0.9 L POC ABG pH POC ABG pO2 Sodium Potassium Chloride Carbon Dioxide BUN Creatinine Glucose POC Glucose Lactic Acid 2.50 H* Calcium Phosphorus Magnesium AST Alkaline Phosphatase Troponin T C-Reactive Protein Albumin Cholesterol LDL Cholesterol Direct HDL Cholesterol Urine WBC (Auto) Urine Creatinine 74.7 H Vancomycin Trough Crossmatch 10/02/18 10/02/18 10/02/18 04:45 04:45 04:45 WBC RBC Hgb Hct MCH MCHC RDW Plt Count Lymph % (Auto) [place] % (Auto) Eos % (Auto) Lymph # [place] # Eos # Seg Neutrophils % Seg Neuts % (Manual) Lymphocytes % (Manual) Seg Neutrophils # Seg Neutrophils # Man Lymphocytes # (Manual) POC ABG pH POC ABG pO2 Sodium 148 H Potassium 3.1 L Chloride 108.6 H Carbon Dioxide 21 L BUN 89 H Creatinine 1.8 H Glucose POC Glucose Lactic Acid 2.10 H* Calcium 8.3 L Phosphorus 5.00 H Magnesium AST Alkaline Phosphatase 161 H Troponin T C-Reactive Protein Albumin 1.7 L Cholesterol LDL Cholesterol Direct HDL Cholesterol Urine WBC (Auto) Urine Creatinine Vancomycin Trough Crossmatch 10/02/18 10/02/18 10/03/18 09:46 11:47 00:03 WBC RBC Hgb Hct MCH MCHC RDW Plt Count Lymph % (Auto) Johnston % (Auto) Eos % (Auto) Lymph # [place] # Eos # Seg Neutrophils % Seg Neuts % (Manual) Lymphocytes % (Manual) Seg Neutrophils # Seg Neutrophils # Man Lymphocytes # (Manual) POC ABG pH POC ABG pO2 Sodium Potassium Chloride Carbon Dioxide BUN Creatinine Glucose POC Glucose 112 H 106 H Lactic Acid Calcium Phosphorus Magnesium AST Alkaline Phosphatase Troponin T C-Reactive Protein Albumin Cholesterol LDL Cholesterol Direct HDL Cholesterol Urine WBC (Auto) Urine Creatinine Vancomycin Trough Crossmatch See Detail 10/03/18 10/03/18 10/03/18 06:06 06:45 06:45 WBC 17.3 H RBC 2.81 L Hgb 7.6 L Hct 24.1 L MCH 27 L MCHC 31 L RDW 18.4 H Plt Count 473 H Lymph % (Auto) 5.2 L Johnston % (Auto) Eos % (Auto) 4.6 H Lymph # 0.9 L Johnston # Eos # 0.8 H Seg Neutrophils % 85.7 H Seg Neuts % (Manual) Lymphocytes % (Manual) Seg Neutrophils # 14.8 H Seg Neutrophils # Man Lymphocytes # (Manual) POC ABG pH POC ABG pO2 Sodium 148 H Potassium Chloride 112.1 H Carbon Dioxide 21 L BUN 79 H Creatinine 1.7 H Glucose 116 H POC Glucose 130 H Lactic Acid Calcium 7.9 L Phosphorus Magnesium AST Alkaline Phosphatase Troponin T C-Reactive Protein Albumin Cholesterol LDL Cholesterol Direct HDL Cholesterol Urine WBC (Auto) Urine Creatinine Vancomycin Trough Crossmatch 10/03/18 10/03/18 10/03/18 11:50 17:42 23:20 WBC RBC Hgb Hct MCH MCHC RDW Plt Count Lymph % (Auto) [place] % (Auto) Eos % (Auto) Lymph # Johnston # Eos # Seg Neutrophils % Seg Neuts % (Manual) Lymphocytes % (Manual) Seg Neutrophils # Seg Neutrophils # Man Lymphocytes # (Manual) POC ABG pH POC ABG pO2 Sodium Potassium Chloride Carbon Dioxide BUN Creatinine Glucose POC Glucose 126 H 118 H 106 H Lactic Acid Calcium Phosphorus Magnesium AST Alkaline Phosphatase Troponin T C-Reactive Protein Albumin Cholesterol LDL Cholesterol Direct HDL Cholesterol Urine WBC (Auto) Urine Creatinine Vancomycin Trough Crossmatch 10/04/18 10/04/18 10/04/18 05:22 07:00 07:00 WBC 14.8 H RBC 2.38 L Hgb 6.4 L Hct 20.5 L MCH 27 L MCHC 31 L RDW 18.2 H Plt Count Lymph % (Auto) 5.3 L Johnston % (Auto) Eos % (Auto) 9.5 H Lymph # 0.8 L Johnston # Eos # 1.4 H Seg Neutrophils % 81.2 H Seg Neuts % (Manual) Lymphocytes % (Manual) Seg Neutrophils # 12.0 H Seg Neutrophils # Man Lymphocytes # (Manual) POC ABG pH POC ABG pO2 Sodium 148 H Potassium Chloride 112.0 H Carbon Dioxide BUN 73 H Creatinine Glucose 105 H POC Glucose 115 H Lactic Acid Calcium 8.1 L Phosphorus Magnesium AST Alkaline Phosphatase Troponin T C-Reactive Protein Albumin 1.5 L Cholesterol LDL Cholesterol Direct HDL Cholesterol Urine WBC (Auto) Urine Creatinine Vancomycin Trough Crossmatch 10/04/18 10/04/18 10/05/18 12:35 18:28 04:20 WBC 14.1 H RBC 2.94 L Hgb 8.2 L Hct 25.2 L MCH MCHC RDW 17.9 H Plt Count Lymph % (Auto) 6.6 L Johnston % (Auto) Eos % (Auto) 6.4 H Lymph # 0.9 L Johnston # Eos # 0.9 H Seg Neutrophils % 82.7 H Seg Neuts % (Manual) Lymphocytes % (Manual) Seg Neutrophils # 11.6 H Seg Neutrophils # Man Lymphocytes # (Manual) POC ABG pH POC ABG pO2 Sodium Potassium Chloride Carbon Dioxide BUN Creatinine Glucose POC Glucose 109 H 109 H Lactic Acid Calcium Phosphorus Magnesium AST Alkaline Phosphatase Troponin T C-Reactive Protein Albumin Cholesterol LDL Cholesterol Direct HDL Cholesterol Urine WBC (Auto) Urine Creatinine Vancomycin Trough Crossmatch 10/05/18 10/05/18 10/05/18 04:20 11:45 17:32 WBC RBC Hgb Hct MCH MCHC RDW Plt Count Lymph % (Auto) [place] % (Auto) Eos % (Auto) Lymph # [place] # Eos # Seg Neutrophils % Seg Neuts % (Manual) Lymphocytes % (Manual) Seg Neutrophils # Seg Neutrophils # Man Lymphocytes # (Manual) POC ABG pH POC ABG pO2 Sodium Potassium Chloride 110.0 H Carbon Dioxide 21 L BUN 64 H Creatinine Glucose POC Glucose 118 H 113 H Lactic Acid Calcium 8.3 L Phosphorus Magnesium AST Alkaline Phosphatase Troponin T C-Reactive Protein Albumin Cholesterol LDL Cholesterol Direct HDL Cholesterol Urine WBC (Auto) Urine Creatinine Vancomycin Trough Crossmatch 10/06/18 10/06/18 10/06/18 05:15 05:15 05:35 WBC 12.3 H RBC 2.77 L Hgb 7.6 L Hct 24.1 L MCH MCHC RDW 18.1 H Plt Count Lymph % (Auto) 4.9 L Johnston % (Auto) Eos % (Auto) 7.3 H Lymph # 0.6 L Johnston # Eos # 0.9 H Seg Neutrophils % 81.1 H Seg Neuts % (Manual) Lymphocytes % (Manual) Seg Neutrophils # 10.0 H Seg Neutrophils # Man Lymphocytes # (Manual) POC ABG pH POC ABG pO2 Sodium 146 H Potassium Chloride 112.1 H Carbon Dioxide BUN 57 H Creatinine Glucose 120 H POC Glucose 115 H Lactic Acid Calcium Phosphorus Magnesium AST Alkaline Phosphatase Troponin T C-Reactive Protein Albumin Cholesterol LDL Cholesterol Direct HDL Cholesterol Urine WBC (Auto) Urine Creatinine Vancomycin Trough Crossmatch 10/06/18 10/06/18 10/06/18 12:31 18:44 Unknown WBC RBC Hgb Hct MCH MCHC RDW Plt Count Lymph % (Auto) Johnston % (Auto) Eos % (Auto) Lymph # Johnston # Eos # Seg Neutrophils % Seg Neuts % (Manual) Lymphocytes % (Manual) Seg Neutrophils # Seg Neutrophils # Man Lymphocytes # (Manual) POC ABG pH POC ABG pO2 Sodium Potassium Chloride Carbon Dioxide BUN Creatinine Glucose POC Glucose 150 H 125 H Lactic Acid Calcium Phosphorus Magnesium AST Alkaline Phosphatase Troponin T C-Reactive Protein Albumin Cholesterol LDL Cholesterol Direct HDL Cholesterol Urine WBC (Auto) Urine Creatinine Vancomycin Trough 23.5 H Crossmatch 10/07/18 10/07/18 10/07/18 05:06 05:06 08:34 WBC RBC Hgb 8.2 L Hct 25.8 L MCH MCHC RDW Plt Count Lymph % (Auto) [place] % (Auto) Eos % (Auto) Lymph # Johnston # Eos # Seg Neutrophils % Seg Neuts % (Manual) Lymphocytes % (Manual) Seg Neutrophils # Seg Neutrophils # Man Lymphocytes # (Manual) POC ABG pH POC ABG pO2 Sodium Potassium Chloride 112.2 H Carbon Dioxide 21 L BUN 43 H Creatinine Glucose POC Glucose Lactic Acid Calcium 8.3 L Phosphorus Magnesium AST Alkaline Phosphatase Troponin T C-Reactive Protein Albumin Cholesterol LDL Cholesterol Direct HDL Cholesterol Urine WBC (Auto) Urine Creatinine Vancomycin Trough 23.0 H Crossmatch 10/08/18 10/08/18 10/08/18 05:07 05:07 11:09 WBC RBC 2.86 L Hgb 8.0 L Hct 24.5 L MCH MCHC RDW 18.7 H Plt Count Lymph % (Auto) 7.8 L Johnston % (Auto) 8.2 H Eos % (Auto) 5.9 H Lymph # 0.8 L Johnston # 0.9 H Eos # 0.6 H Seg Neutrophils % 77.8 H Seg Neuts % (Manual) Lymphocytes % (Manual) Seg Neutrophils # 8.2 H Seg Neutrophils # Man Lymphocytes # (Manual) POC ABG pH POC ABG pO2 Sodium Potassium 5.1 H Chloride 111.8 H Carbon Dioxide BUN 37 H Creatinine Glucose 101 H POC Glucose Lactic Acid Calcium 8.3 L Phosphorus Magnesium 2.50 H AST Alkaline Phosphatase Troponin T C-Reactive Protein 11.40 H Albumin Cholesterol LDL Cholesterol Direct HDL Cholesterol Urine WBC (Auto) Urine Creatinine Vancomycin Trough Crossmatch 10/09/18 10/10/18 10/10/18 05:48 09:02 09:02 WBC 13.6 H RBC 2.80 L Hgb 7.5 L Hct 23.9 L MCH 27 L MCHC 31 L RDW 18.9 H Plt Count Lymph % (Auto) 5.7 L Johnston % (Auto) 8.5 H Eos % (Auto) Lymph # 0.8 L Johnston # 1.1 H Eos # Seg Neutrophils % 83.9 H Seg Neuts % (Manual) Lymphocytes % (Manual) Seg Neutrophils # 11.4 H Seg Neutrophils # Man Lymphocytes # (Manual) POC ABG pH POC ABG pO2 Sodium Potassium 5.2 H 5.6 H Chloride 112.9 H 111.7 H Carbon Dioxide 21 L BUN 34 H 32 H Creatinine 0.7 L Glucose 109 H POC Glucose Lactic Acid Calcium Phosphorus Magnesium AST Alkaline Phosphatase Troponin T C-Reactive Protein Albumin Cholesterol LDL Cholesterol Direct HDL Cholesterol Urine WBC (Auto) Urine Creatinine Vancomycin Trough Crossmatch 10/11/18 10/11/18 10/11/18 04:41 04:41 09:09 WBC 11.4 H RBC 2.52 L Hgb 6.9 L Hct 22.0 L MCH 27 L MCHC 31 L RDW 19.0 H Plt Count Lymph % (Auto) [place] % (Auto) Eos % (Auto) Lymph # Johnston # Eos # Seg Neutrophils % Seg Neuts % (Manual) Lymphocytes % (Manual) Seg Neutrophils # Seg Neutrophils # Man Lymphocytes # (Manual) POC ABG pH POC ABG pO2 Sodium 146 H Potassium Chloride 113.0 H Carbon Dioxide BUN 30 H Creatinine Glucose POC Glucose Lactic Acid Calcium 8.2 L Phosphorus Magnesium AST Alkaline Phosphatase Troponin T C-Reactive Protein Albumin Cholesterol LDL Cholesterol Direct HDL Cholesterol Urine WBC (Auto) Urine Creatinine Vancomycin Trough Crossmatch See Detail 10/11/18 10/12/18 10/12/18 23:29 04:22 04:22 WBC RBC 2.98 L Hgb 8.3 L Hct 25.5 L MCH MCHC RDW 17.7 H Plt Count Lymph % (Auto) Johnston % (Auto) Eos % (Auto) Lymph # Johnston # Eos # Seg Neutrophils % Seg Neuts % (Manual) Lymphocytes % (Manual) Seg Neutrophils # Seg Neutrophils # Man Lymphocytes # (Manual) POC ABG pH POC ABG pO2 Sodium 146 H 146 H Potassium Chloride 110.6 H 112.8 H Carbon Dioxide BUN 30 H 29 H Creatinine Glucose 102 H POC Glucose Lactic Acid Calcium 8.2 L Phosphorus 4.60 H Magnesium AST Alkaline Phosphatase Troponin T C-Reactive Protein Albumin Cholesterol LDL Cholesterol Direct HDL Cholesterol Urine WBC (Auto) Urine Creatinine Vancomycin Trough Crossmatch 10/13/18 10/13/18 10/14/18 23:00 23:00 00:15 WBC RBC 2.95 L Hgb 8.6 L Hct 25.4 L MCH MCHC RDW 18.1 H Plt Count Lymph % (Auto) Johnston % (Auto) Eos % (Auto) Lymph # Johnston # Eos # Seg Neutrophils % Seg Neuts % (Manual) Lymphocytes % (Manual) Seg Neutrophils # Seg Neutrophils # Man Lymphocytes # (Manual) POC ABG pH POC ABG pO2 Sodium Potassium 5.4 H Chloride 111.4 H Carbon Dioxide BUN 30 H Creatinine Glucose 107 H POC Glucose 151 H Lactic Acid Calcium Phosphorus Magnesium AST Alkaline Phosphatase Troponin T C-Reactive Protein Albumin Cholesterol LDL Cholesterol Direct HDL Cholesterol Urine WBC (Auto) Urine Creatinine Vancomycin Trough Crossmatch 10/14/18 10/14/18 10/15/18 07:18 18:33 05:32 WBC RBC Hgb Hct MCH MCHC RDW Plt Count Lymph % (Auto) Johnston % (Auto) Eos % (Auto) Lymph # Johnston # Eos # Seg Neutrophils % Seg Neuts % (Manual) Lymphocytes % (Manual) Seg Neutrophils # Seg Neutrophils # Man Lymphocytes # (Manual) POC ABG pH POC ABG pO2 Sodium 146 H Potassium 5.3 H 3.5 L D Chloride 112.3 H 111.1 H Carbon Dioxide BUN 29 H 28 H Creatinine Glucose 106 H 103 H POC Glucose 124 H Lactic Acid Calcium Phosphorus Magnesium AST Alkaline Phosphatase Troponin T C-Reactive Protein Albumin Cholesterol LDL Cholesterol Direct HDL Cholesterol Urine WBC (Auto) Urine Creatinine Vancomycin Trough Crossmatch 10/15/18 10/15/18 10/16/18 05:32 11:59 00:02 WBC RBC 2.93 L Hgb 8.2 L Hct 25.4 L MCH MCHC RDW 17.5 H Plt Count Lymph % (Auto) Johnston % (Auto) Eos % (Auto) Lymph # Johnston # Eos # Seg Neutrophils % Seg Neuts % (Manual) Lymphocytes % (Manual) Seg Neutrophils # Seg Neutrophils # Man Lymphocytes # (Manual) POC ABG pH POC ABG pO2 Sodium Potassium Chloride Carbon Dioxide BUN Creatinine Glucose POC Glucose 110 H 107 H Lactic Acid Calcium Phosphorus Magnesium AST Alkaline Phosphatase Troponin T C-Reactive Protein Albumin Cholesterol LDL Cholesterol Direct HDL Cholesterol Urine WBC (Auto) Urine Creatinine Vancomycin Trough Crossmatch 10/16/18 10/16/18 10/17/18 05:02 23:27 06:00 WBC RBC Hgb Hct MCH MCHC RDW Plt Count Lymph % (Auto) Johnston % (Auto) Eos % (Auto) Lymph # Johnston # Eos # Seg Neutrophils % Seg Neuts % (Manual) Lymphocytes % (Manual) Seg Neutrophils # Seg Neutrophils # Man Lymphocytes # (Manual) POC ABG pH POC ABG pO2 Sodium Potassium 3.3 L Chloride 108.9 H 107.5 H Carbon Dioxide BUN 27 H 26 H Creatinine 0.7 L Glucose 118 H POC Glucose 113 H Lactic Acid Calcium Phosphorus Magnesium AST Alkaline Phosphatase Troponin T C-Reactive Protein Albumin Cholesterol LDL Cholesterol Direct HDL Cholesterol Urine WBC (Auto) Urine Creatinine Vancomycin Trough Crossmatch 10/17/18 11:50 WBC RBC Hgb Hct MCH MCHC RDW Plt Count Lymph % (Auto) Johnston % (Auto) Eos % (Auto) Lymph # Johnston # Eos # Seg Neutrophils % Seg Neuts % (Manual) Lymphocytes % (Manual) Seg Neutrophils # Seg Neutrophils # Man Lymphocytes # (Manual) POC ABG pH POC ABG pO2 Sodium Potassium Chloride Carbon Dioxide BUN Creatinine Glucose POC Glucose 108 H Lactic Acid Calcium Phosphorus Magnesium AST Alkaline Phosphatase Troponin T C-Reactive Protein Albumin Cholesterol LDL Cholesterol Direct HDL Cholesterol Urine WBC (Auto) Urine Creatinine Vancomycin Trough Crossmatch Allied health notes reviewed: nursing
--- NOTE | 2018-10-17 13:50 | Progress Note ---
Assessment and Plan / Severe sepsis with shock, POA due to bacteremia, UTI and RUL PNA continue Sepsis Protocol: IV antibiotic therapy, IVF resuscitation therapy, MRSA on Blood cultures, s/p IV pressors , ID consulted Per ID: - Continue vancomycin now for MRSA bacteremia. So far no clear source for MRSA bacteremia but suspected possible infected decubitus ulcer - treated with meropenem for 5 days to cover UTI as urine culture was not sent and he has h/o MDR GNRs - Anticipate discharge on Vancomycin 1 gm every 48 hours for total 6 weeks ending 11-12-18 - Again, this infection is incurable, patient's family has been advised hospice several times in the past but refused /MRSA bacteremia - possible source infected decubitus ulcer - cont vanc, ID following, 2d echo showed no vegetation /Decubitus ulcer, multiple with different stages - cont wound care, abx per ID - Could be the source for bacteremia, ID ordered for WBC scan but could not be done because of his chronic contracture/anatomical position /Anemia, s/p 2 units blood transfusion, likely AOCD and severe sepsis - stool for occult blood negative, cont to monitor / MÓNICA with vasomotor nephropathy renal function stable with IVF resuscitation therapy, monitor uop q shift, nephrology consulted in ED. /Right upper lobe Pneumonia, suspect aspiration Treated with IV antibiotic therapy, supplemental oxygen, pulse oximetry, / Elevated troponin Likely due to sepsis with low blood pressure and renal failure Monitor with Serial cardiac enzymes, Cardiology consulted in ED, No EKG changes, supportive care, / UTI (lower urinary tract infection) Treated with IV antibiotic therapy, IV fluids /Acute hypoxic Respiratory failure Likely due to underlying pneumonia Continue to provide Supplemental oxygen, nebulizer therapy, NIPPV as clinically indicated, pulse oximetry, /Moderate to severe protein calorie malnutrition - BMI 17.8, albumin 1.7 - consulted dietary, continue tube feeding for now hypernatremia, on hypotonic saline Hypokalemia/hyperkalemia, -cont to monitor /Hypertension, placed on clonidine patch / DVT prophylaxis SCD to BLE while in bed, prophylactic heparin Disposition: SNF when isolation bed available Brief History: 67 YO Male Care Home Facility Resident as [facility] with HTN, CVA, Obstructive Uropathy, Contracture, Decubitus Ulcers, OH, DM, OA, Seizure Disorder, COPD, Dementia, Debility, BPH presented to ED for evaluation, As per staff, the patient was found to have decreased responsiveness compared to baseline. Pt seen and evaluated in ED and found to have Sepsis secondary to UTI with concomitant RUL Pneumonia with a QSofa score of 8, GCS:3, MAP less than 70, Creatnine:2.1, Encephalopathy, and symptomatic anemia. Pt was admitted to ICU and initiated on Sepsis protocol. Now being treated for MRSA bacteremia. Radiological data: Chest x-ray: Limited exam. Mild cardiomegaly. The lungs are grossly clear although there is poor visualization of the right upper lobe. 2-D echo: Preserved EF with abnormal left ventricular diastolic filling pressure Hospitalist Physical exam: GENERAL: Elderly male lying on bed appeared to be in no discomfort. It appears to be very lethargic and aphasic HEENT: Normocephalic. Atraumatic. No conjunctival congestion or icterus. Patient has moist mucous membranes. NECK: Supple. Trachea midline. CHEST/LUNGS: Clear to auscultated bilaterally, breathing nonlabored. No wheezes crackles or rhonchi. HEART/CARDIOVASCULAR: Regular in rate and rhythm. S1 and S2 positive. ABDOMEN: Abdomen is soft, nontender. Patient has normal bowel sounds. SKIN: There is no rash. Warm and dry. NEURO: Does not Follow command. MUSCULOSKELETAL: No joint effusion, generalized weakness unable to move extremities EXTRIMITY: No edema, no cyanosis or clubbing. PSYCH: Unable to assess. Subjective Date of service: 10/17/18 Principal diagnosis: Septic shock; Ac encephalopathy; Multiple decubitus ulcers; Ac renal failur Interval history: Patient seen and examined. Medical records and medication list reviewed. No acute event overnight noted by the RN. Patient unable to provide any history with severe dementia Patient on nasal cannula , on tube feeding, no sign of active bleeding Discussed plan of care at bedside with RN. Discharge pending on placement Objective - Constitutional Vitals: Vital Signs - 12hr 10/17/18 10/17/18 10/17/18 03:38 08:00 08:35 Temperature 99.4 F 98.6 F Pulse Rate 84 93 H 84 Respiratory 19 18 Rate Blood Pressure 136/69 Blood Pressure 183/88 [Left] O2 Sat by Pulse 98 100 Oximetry - Labs CBC & Chem 7: 10/15/18 05:32 10/17/18 06:00 Labs: Abnormal lab results 10/16/18 10/17/18 10/17/18 Range/Units 23:27 06:00 11:50 Chloride 107.5 H (98-107) mmol/L BUN 26 H (9-20) mg/dL Glucose 118 H (75-100) mg/dL POC Glucose 113 H 108 H (70-105)
[2018-10-17] MEDS: COREG PO SCH ×2 (14:49→21:45)
[2018-10-17] MEDS: SODIUM CHLORIDE FLUSH SYRINGE 10 ML IV SCH ×2 (14:50→21:45)
[2018-10-17] MEDS: THERAGRAN Tab PO SCH (14:50)
[2018-10-17] MEDS: KEPPRA PO SCH ×2 (14:50→21:45)
[2018-10-17] MEDS: ZINC SULFATE PO SCH (14:50)
[2018-10-17] MEDS: VITAMIN C FEEDTUBE SCH ×2 (14:50→21:45)
[2018-10-17] MEDS: HCTZ PO SCH (14:50)
[2018-10-17] MEDS: PEPCID PO SCH (14:50)
[2018-10-17] MEDS: HEPARIN SUB-Q SCH ×2 (14:51→21:44)
--- NOTE | 2018-10-17 20:29 | Progress Note ---
Assessment and Plan Cultures: Blood culture 10/01/2018 MRSA 2 of 4. Blood culture 10/03/2018 no growth Blood culture 10/08/2018 no growth Blood culture 10/11/2018 no growth Assessment: 67 y/o male with hsitory of HTN, CVA, Obstructive Uropathy, Contracture, Multiple Decubitus Ulcers, SC, DM, OA, Seizure Disorder, COPD, Dementia, Debility, BPH, well known to ID due to multiple admissions from ducubitus ulcers infections, resident of [facility], admitted on due to decreased responsiveness compared to baseline and hypotension SBP in 60's: 1) Severe Sepsis with septic shock: new isolated fever. Etiology most likely Staph bacteremia. 2) MRSA bacteremia: source likely multiple decubitus or UTI. Blood culture 10/01/2018 GPC in clusters 2 of 4. TTE no negative. 3) Recent septic shock due to polymicrobial bacteremia ESBL E coli, MDR Proteus, Strep and E faecalis on 07/29/2018 probably from multiple infected decubitus ulcers and less likely UTI. Repeat blood cultures 07/31/2018 showed same MDR E coli 1 of 4 bottles then 08/06/2018 blood cultures showed no growth. Patient did not respond to carbapenem and was placed on vabomere for 14 days. 4) Multiple infected decubitus ulcers: currently active large left trochanteric with bone exposure and sacral with bone exposure. His prognosis has been poor and discussed previously with family hospice indication but they declined. His wounds are not curable considering his contractures, bed bound status and poor nutritional status. There was also suspicion of septic arthritis of left hip from decubitus ulcer. 5) Recurrent CAUTI 6) Acute encephalopathy: resolved. 7) MÓNICA: resolved with high K. 8) Low grade fever: ? resolved Recommendations: - Continue wound care - Continue vancomycin D16 for MRSA bacteremia. - WBC tagged scan ordered - Unable to perform because of contractions - Anticipate discharge on Vancomycin 1 gm every 48 hours for total 6 weeks ending 11-12-18 - Again, this infection is incurable, patient's family has been advised hospice several times in the past but refused Dr Dillon is rounding tomorrow Penny Bernardo MD Infectious Diseases [employer] [facility] [phone] O [phone] Subjective Date of service: 10/17/18 Principal diagnosis: Septic shock; Ac encephalopathy; Multiple decubitus ulcers; Ac renal failur Interval history: Feels ok alert, talking, no fever. ROS limited confused Objective - Exam Narrative Exam: General appearance: Alert in NAD verbal Eyes: anicteric sclerae, moist conjunctivae; no lid-lag; PERRLA HENT: Atraumatic; oropharynx limited Neck: Trachea midline; supple, no thyromegaly or lymphadenopathy Lungs: scattered rhonchi CV: rrr Abdomen: Soft, non-tender;PEG Extremities: altaf contracted legs, multiple wounds covered Skin: multiple skin tears Psych: no agitated Neuro: alert non verbal no agitated WOUND CARE EVAL LEFT TROCHANTER STAGE 4 PRESSURE INJURY. LARGE AMOUNT OF YELLOW DRAINAGE. NO ODOR. WOUND PROBES TO A DEPTH OF 8CM. 6X6X8. THERE IS BONE EXPOSED. CLEANSED WITH WOUND CLEANSER. PACKED WITH 2 PIECES OF 4X4 ALGINATE. COVERED WITH 4X4 GAUZE, THEN TELFA. STAGE 4 SACRAL PRESSURE INJURY NOTED. PINK GRANULATION TISSUE. MODERATE AMOUNT OF YELLOW DRAINAGE. BONE IS EXPOSED. PERIWOUND SKIN IS INTACT. MEASURES [id number] CLEANSED WITH WOUND CLEANSER. ALGINATE APPLIED. COVERED WITH 4X4 GAUZE, THEN TELFA. - Constitutional Vitals: Vital Signs Temp Pulse Resp BP Pulse Ox 98.6 F 84 20 183/88 100 10/17/18 08:00 10/17/18 08:35 10/17/18 08:00 10/17/18 08:00 10/17/18 08:35 Temperature -Last 24 Hours Temperature 98.6 F Temperature 99.4 F Temperature 98.6 F - Labs CBC & Chem 7: 10/15/18 05:32 10/17/18 06:00 Labs: Abnormal lab results 10/16/18 10/17/18 10/17/18 Range/Units 23:27 06:00 11:50 Chloride 107.5 H (98-107) mmol/L BUN 26 H (9-20) mg/dL Glucose 118 H (75-100) mg/dL POC Glucose 113 H 108 H (70-105) 10/17/18 Range/Units 16:36 Chloride (98-107) mmol/L BUN (9-20) mg/dL Glucose (75-100) mg/dL POC Glucose 106 H (70-105)
[2018-10-18] MEDS: HumaLOG SUB-Q SCH ×4 (01:04→18:30)
[2018-10-18] MEDS: HCTZ PO SCH (10:29)
[2018-10-18] MEDS: PEPCID PO SCH (10:30)
[2018-10-18] MEDS: COREG PO SCH ×2 (10:30→22:33)
[2018-10-18] MEDS: VITAMIN C FEEDTUBE SCH ×2 (10:30→22:33)
[2018-10-18] MEDS: HEPARIN SUB-Q SCH ×2 (10:30→22:34)
[2018-10-18] MEDS: THERAGRAN Tab PO SCH (10:30)
[2018-10-18] MEDS: KEPPRA PO SCH ×2 (10:30→22:33)
--- NOTE | 2018-10-18 10:30 | Progress Note ---
Assessment and Plan Cultures: Blood culture 10/01/2018 MRSA 2 of 4. Blood culture 10/03/2018 no growth Blood culture 10/08/2018 no growth Blood culture 10/11/2018 no growth Assessment: 67 y/o male with hsitory of HTN, CVA, Obstructive Uropathy, Contracture, Multiple Decubitus Ulcers, SC, DM, OA, Seizure Disorder, COPD, Dementia, Debility, BPH, well known to ID due to multiple admissions from ducubitus ulcers infections, [facility], admitted on due to decreased responsiveness compared to baseline and hypotension SBP in 60's: 1) Severe Sepsis with septic shock: Etiology most likely Staph bacteremia. 2) MRSA bacteremia: source likely multiple decubitus ulcers. Blood culture 10/01/2018 GPC in clusters 2 of 4. TTE no negative. - WBC tagged scan ordered - Unable to perform because of contractions. Best to treat for a 6 week duration. 3) Recent septic shock due to polymicrobial bacteremia ESBL and carbapenem resistant E coli, MDR Proteus, Strep and E faecalis on 07/29/2018 probably from multiple infected decubitus ulcers and less likely UTI. Repeat blood cultures 07/31/2018 showed same MDR E coli 1 of 4 bottles then 08/06/2018 blood cultures showed no growth. Patient was treated with Vabomere for 14 days. 4) Multiple infected decubitus ulcers: currently active large left trochanteric with bone exposure and sacral with bone exposure. His prognosis has been poor and hospice has been recommended several times in the past but family has declined. declined. His wounds are not curable considering his contractures, bed bound status and poor nutritional status. There was also suspicion of sep tic arthritis of left hip from decubitus ulcer. 5) Recurrent CAUTI 6) Acute encephalopathy: resolved. 7) MÓNICA: resolved with high K. 8) Low grade fever: ? resolved. Likely related to multiple skin wounds. Recommendations: - Continue wound care - Continue IV vancomycin D17 for MRSA bacteremia, target trough 10-20 mcg/ml - Anticipate discharge on Vancomycin 1 gm every 48 hours for total 6 weeks ending 11-12-18 - Again, this infection is incurable, patient's family has been advised hospice several times in the past but refused - continue contact isolation, patient colonized with multiple MDROs - orders for IV abx already placed Marcos Dillon MD [facility], [place], [facility] C: [phone] O: [phone] F: [phone] Subjective Date of service: 10/18/18 Principal diagnosis: Septic shock; Ac encephalopathy; Multiple decubitus ulcers; Ac renal failur Interval history: Low grade temp of 99. Otherwise stable, lying in bed, awake and comfortable. Objective - Exam Narrative Exam: General appearance: Alert, in no distress. Eyes: anicteric sclerae, moist conjunctivae; PERRLA HENT: Atraumatic; oropharynx limited Neck: Trachea midline; supple Lungs: scattered rhonchi CV: S1, S2 heard, no murmur GI: Soft, non-tender; bowel sounds + PEG in place Extremities: altaf contracted legs, multiple wounds covered with dressings. Skin: multiple skin tears. large left greater trochanter wound, sacral decubitus + Psych: no agitated Neuro: alert, awake, not agitated - Constitutional Vitals: Vital Signs Temp Pulse Resp BP Pulse Ox 98.7 F 92 H 20 149/92 95 10/18/18 05:29 10/18/18 05:29 10/18/18 05:29 10/18/18 05:29 10/18/18 05:29 Temperature -Last 24 Hours Temperature 98.7 F Temperature 99.6 F Temperature 99.3 F - Labs CBC & Chem 7: 10/15/18 05:32 10/17/18 06:00 Labs: Abnormal lab results 10/17/18 10/17/18 10/18/18 Range/Units 11:50 16:36 00:50 POC Glucose 108 H 106 H 111 H (70-105) 10/18/18 Range/Units 06:26 POC Glucose 112 H (70-105)
[2018-10-18] MEDS: VANCOMYCIN/NS 1 GM/250 ML 1 GM/250 ML BAG IV SCH (10:31)
[2018-10-18] MEDS: ZINC SULFATE PO SCH (10:31)
[2018-10-18] MEDS: SODIUM CHLORIDE FLUSH SYRINGE 10 ML IV SCH ×2 (10:31→22:34)
--- NOTE | 2018-10-18 13:06 | Progress Note ---
Assessment and Plan Severe Sepsis with septic shock GPC bacteremia Acute encephalopathy Multiple decubitus ulcers Acute metabolic encephaloapthy Hypernatremia Recurrent CAUTI Lactic acidosis Acute renal failure- prerenal/vasomotor nephropathy - advance enteral nutrition to goal re: hypoglycemia - continue free water flushes for hypernatremia - continue to monitor renal indices closely (improving) - continue to avoid nephrotoxic agents, adjust all medications for CrCL - azotemia per nephrology - continue to wean supplemental oxygen for O2 sats>90% - VTE prophylaxis - continue and de-escalate AB's per ID rec's - continue aspiration precautions - continue mobility protocol as tolerated for pressure ulcer prophylaxis - wound care per WCT - continue accuchecks with glycemic control per SSI for target glucose of 140- 180 mg/dL - continue bronchodilators with pulmonary hygiene per RT - Discontinued femoral CVL - Influenza and pneumonia vaccination per protocol ..care plan discussed at length with RN/RT at the bedside ... improved and will transfer out of ICU Subjective Date of service: 10/18/18 Principal diagnosis: Septic shock; Ac encephalopathy; Multiple decubitus ulcers; Ac renal failur Interval history: Patient is seen today for: Severe Sepsis with septic shock; GPC bacteremia; Acute encephalopathy; Multiple decubitus ulcers; Acute metabolic encephaloapthy; Hypernatremia; Recurrent CAUTI; Lactic acidosis; Acute renal failure- prerenal/vasomotor nephropathy Seen and examined at bedside; 24hour events reviewed; nursing and respiratory care staff consulted; no adverse overnight events reported to me; resting peacefully in bed; Objective Vital Signs - 12hr 10/18/18 10/18/18 10/18/18 05:29 10:31 10:51 Temperature 98.7 F 98.6 F Pulse Rate 92 H 85 71 Respiratory 20 18 Rate Blood Pressure 149/92 141/56 137/75 O2 Sat by Pulse 95 98 99 Oximetry 10/18/18 12:47 Temperature Pulse Rate 78 Respiratory Rate Blood Pressure 127/64 O2 Sat by Pulse 98 Oximetry Constitutional: no acute distress, asleep, other (elderly looking AAM, normocephalic but contrated and with mildly increased work of breathing at rest) Eyes: non-icteric ENT: oropharynx moist Neck: no lymphadenopathy, no JVD, other (neck stiff and deviated to the right side) Effort: mildly labored Ascultation: Bilateral: clear, diminished breath sounds, rhonchi (scant) Percussion: Bilateral: not dull Cardiovascular: regular rate and rhythm Gastrointestinal: normoactive bowel sounds, soft, non-tender, non-distended, other (PEG tube) Integumentary: rash Extremities: no cyanosis, no edema, pulses normal, no ischemia or petechiae Neurologic: pupils equal and round, other (tardive dyskinetic movts) Psychiatric: other (unable to assess) CBC and BMP: 10/15/18 05:32 10/17/18 06:00 ABG, PT/INR, D-dimer: ABG POC ABG pH 7.480 (7.35-7.45) H 10/01/18 18:12 POC ABG pO2 64 (80-105) L 10/01/18 18:12 POC ABG HCO3 21.0 (22-26 mml/L) 10/01/18 18:12 POC ABG Total CO2 22 (23-27mmol/L) 10/01/18 18:12 POC ABG O2 Sat 94 10/01/18 18:12 Abnormal lab findings: Abnormal Labs 10/01/18 10/01/18 10/01/18 14:29 14:29 15:13 WBC 18.5 H RBC 2.68 L Hgb 7.3 L Hct 23.1 L MCH 27 L MCHC 31 L RDW 19.3 H Plt Count 522 H Lymph % (Auto) 6.7 L [place] % (Auto) Eos % (Auto) Lymph # [place] # 1.2 H Eos # Seg Neutrophils % 85.0 H Seg Neuts % (Manual) Lymphocytes % (Manual) Seg Neutrophils # 15.7 H Seg Neutrophils # Man Lymphocytes # (Manual) POC ABG pH POC ABG pO2 Sodium 148 H Potassium 3.3 L Chloride Carbon Dioxide BUN 98 H Creatinine 2.0 H Glucose 142 H POC Glucose Lactic Acid Calcium Phosphorus Magnesium AST Alkaline Phosphatase Troponin T 0.361 H* C-Reactive Protein Albumin Cholesterol 36 L LDL Cholesterol Direct 6 L HDL Cholesterol 21 L Urine WBC (Auto) > 182.0 H Urine Creatinine Vancomycin Trough Crossmatch 10/01/18 10/01/18 10/01/18 15:15 15:15 17:03 WBC RBC Hgb Hct MCH MCHC RDW Plt Count Lymph % (Auto) [place] % (Auto) Eos % (Auto) Lymph # [place] # Eos # Seg Neutrophils % Seg Neuts % (Manual) Lymphocytes % (Manual) Seg Neutrophils # Seg Neutrophils # Man Lymphocytes # (Manual) POC ABG pH POC ABG pO2 Sodium 150 H Potassium Chloride Carbon Dioxide BUN 94 H Creatinine 2.1 H Glucose 132 H POC Glucose Lactic Acid 2.60 H* 2.20 H* Calcium 7.8 L Phosphorus Magnesium AST 47 H Alkaline Phosphatase 179 H Troponin T C-Reactive Protein Albumin 2.1 L Cholesterol LDL Cholesterol Direct HDL Cholesterol Urine WBC (Auto) Urine Creatinine Vancomycin Trough Crossmatch 10/01/18 10/01/18 10/01/18 18:12 18:23 18:23 WBC RBC Hgb Hct MCH MCHC RDW Plt Count Lymph % (Auto) [place] % (Auto) Eos % (Auto) Lymph # [place] # Eos # Seg Neutrophils % Seg Neuts % (Manual) Lymphocytes % (Manual) Seg Neutrophils # Seg Neutrophils # Man Lymphocytes # (Manual) POC ABG pH 7.480 H POC ABG pO2 64 L Sodium Potassium Chloride Carbon Dioxide BUN Creatinine Glucose POC Glucose Lactic Acid Calcium Phosphorus Magnesium 3.30 H AST Alkaline Phosphatase Troponin T 0.378 H* C-Reactive Protein Albumin Cholesterol LDL Cholesterol Direct HDL Cholesterol Urine WBC (Auto) Urine Creatinine Vancomycin Trough Crossmatch 10/01/18 10/01/18 10/01/18 18:48 21:20 23:48 WBC RBC Hgb Hct MCH MCHC RDW Plt Count Lymph % (Auto) [place] % (Auto) Eos % (Auto) Lymph # [place] # Eos # Seg Neutrophils % Seg Neuts % (Manual) Lymphocytes % (Manual) Seg Neutrophils # Seg Neutrophils # Man Lymphocytes # (Manual) POC ABG pH POC ABG pO2 Sodium Potassium Chloride Carbon Dioxide BUN Creatinine Glucose POC Glucose Lactic Acid 2.30 H* 2.70 H* Calcium Phosphorus Magnesium AST Alkaline Phosphatase Troponin T 0.336 H* C-Reactive Protein Albumin Cholesterol LDL Cholesterol Direct HDL Cholesterol Urine WBC (Auto) Urine Creatinine Vancomycin Trough Crossmatch 10/01/18 10/02/18 10/02/18 23:48 04:45 04:45 WBC 18.3 H RBC 2.40 L Hgb 6.4 L Hct 20.4 L MCH 27 L MCHC 31 L RDW 19.1 H Plt Count 462 H Lymph % (Auto) [place] % (Auto) Eos % (Auto) Lymph # [place] # Eos # Seg Neutrophils % Seg Neuts % (Manual) 78.0 H Lymphocytes % (Manual) 5.0 L Seg Neutrophils # Seg Neutrophils # Man 14.3 H Lymphocytes # (Manual) 0.9 L POC ABG pH POC ABG pO2 Sodium Potassium Chloride Carbon Dioxide BUN Creatinine Glucose POC Glucose Lactic Acid 2.50 H* Calcium Phosphorus Magnesium AST Alkaline Phosphatase Troponin T C-Reactive Protein Albumin Cholesterol LDL Cholesterol Direct HDL Cholesterol Urine WBC (Auto) Urine Creatinine 74.7 H Vancomycin Trough Crossmatch 10/02/18 10/02/18 10/02/18 04:45 04:45 04:45 WBC RBC Hgb Hct MCH MCHC RDW Plt Count Lymph % (Auto) [place] % (Auto) Eos % (Auto) Lymph # [place] # Eos # Seg Neutrophils % Seg Neuts % (Manual) Lymphocytes % (Manual) Seg Neutrophils # Seg Neutrophils # Man Lymphocytes # (Manual) POC ABG pH POC ABG pO2 Sodium 148 H Potassium 3.1 L Chloride 108.6 H Carbon Dioxide 21 L BUN 89 H Creatinine 1.8 H Glucose POC Glucose Lactic Acid 2.10 H* Calcium 8.3 L Phosphorus 5.00 H Magnesium AST Alkaline Phosphatase 161 H Troponin T C-Reactive Protein Albumin 1.7 L Cholesterol LDL Cholesterol Direct HDL Cholesterol Urine WBC (Auto) Urine Creatinine Vancomycin Trough Crossmatch 10/02/18 10/02/18 10/03/18 09:46 11:47 00:03 WBC RBC Hgb Hct MCH MCHC RDW Plt Count Lymph % (Auto) [place] % (Auto) Eos % (Auto) Lymph # [place] # Eos # Seg Neutrophils % Seg Neuts % (Manual) Lymphocytes % (Manual) Seg Neutrophils # Seg Neutrophils # Man Lymphocytes # (Manual) POC ABG pH POC ABG pO2 Sodium Potassium Chloride Carbon Dioxide BUN Creatinine Glucose POC Glucose 112 H 106 H Lactic Acid Calcium Phosphorus Magnesium AST Alkaline Phosphatase Troponin T C-Reactive Protein Albumin Cholesterol LDL Cholesterol Direct HDL Cholesterol Urine WBC (Auto) Urine Creatinine Vancomycin Trough Crossmatch See Detail 10/03/18 10/03/18 10/03/18 06:06 06:45 06:45 WBC 17.3 H RBC 2.81 L Hgb 7.6 L Hct 24.1 L MCH 27 L MCHC 31 L RDW 18.4 H Plt Count 473 H Lymph % (Auto) 5.2 L [place] % (Auto) Eos % (Auto) 4.6 H Lymph # 0.9 L [place] # Eos # 0.8 H Seg Neutrophils % 85.7 H Seg Neuts % (Manual) Lymphocytes % (Manual) Seg Neutrophils # 14.8 H Seg Neutrophils # Man Lymphocytes # (Manual) POC ABG pH POC ABG pO2 Sodium 148 H Potassium Chloride 112.1 H Carbon Dioxide 21 L BUN 79 H Creatinine 1.7 H Glucose 116 H POC Glucose 130 H Lactic Acid Calcium 7.9 L Phosphorus Magnesium AST Alkaline Phosphatase Troponin T C-Reactive Protein Albumin Cholesterol LDL Cholesterol Direct HDL Cholesterol Urine WBC (Auto) Urine Creatinine Vancomycin Trough Crossmatch 10/03/18 10/03/18 10/03/18 11:50 17:42 23:20 WBC RBC Hgb Hct MCH MCHC RDW Plt Count Lymph % (Auto) [place] % (Auto) Eos % (Auto) Lymph # [place] # Eos # Seg Neutrophils % Seg Neuts % (Manual) Lymphocytes % (Manual) Seg Neutrophils # Seg Neutrophils # Man Lymphocytes # (Manual) POC ABG pH POC ABG pO2 Sodium Potassium Chloride Carbon Dioxide BUN Creatinine Glucose POC Glucose 126 H 118 H 106 H Lactic Acid Calcium Phosphorus Magnesium AST Alkaline Phosphatase Troponin T C-Reactive Protein Albumin Cholesterol LDL Cholesterol Direct HDL Cholesterol Urine WBC (Auto) Urine Creatinine Vancomycin Trough Crossmatch 10/04/18 10/04/18 10/04/18 05:22 07:00 07:00 WBC 14.8 H RBC 2.38 L Hgb 6.4 L Hct 20.5 L MCH 27 L MCHC 31 L RDW 18.2 H Plt Count Lymph % (Auto) 5.3 L [place] % (Auto) Eos % (Auto) 9.5 H Lymph # 0.8 L [place] # Eos # 1.4 H Seg Neutrophils % 81.2 H Seg Neuts % (Manual) Lymphocytes % (Manual) Seg Neutrophils # 12.0 H Seg Neutrophils # Man Lymphocytes # (Manual) POC ABG pH POC ABG pO2 Sodium 148 H Potassium Chloride 112.0 H Carbon Dioxide BUN 73 H Creatinine Glucose 105 H POC Glucose 115 H Lactic Acid Calcium 8.1 L Phosphorus Magnesium AST Alkaline Phosphatase Troponin T C-Reactive Protein Albumin 1.5 L Cholesterol LDL Cholesterol Direct HDL Cholesterol Urine WBC (Auto) Urine Creatinine Vancomycin Trough Crossmatch 10/04/18 10/04/18 10/05/18 12:35 18:28 04:20 WBC 14.1 H RBC 2.94 L Hgb 8.2 L Hct 25.2 L MCH MCHC RDW 17.9 H Plt Count Lymph % (Auto) 6.6 L [place] % (Auto) Eos % (Auto) 6.4 H Lymph # 0.9 L [place] # Eos # 0.9 H Seg Neutrophils % 82.7 H Seg Neuts % (Manual) Lymphocytes % (Manual) Seg Neutrophils # 11.6 H Seg Neutrophils # Man Lymphocytes # (Manual) POC ABG pH POC ABG pO2 Sodium Potassium Chloride Carbon Dioxide BUN Creatinine Glucose POC Glucose 109 H 109 H Lactic Acid Calcium Phosphorus Magnesium AST Alkaline Phosphatase Troponin T C-Reactive Protein Albumin Cholesterol LDL Cholesterol Direct HDL Cholesterol Urine WBC (Auto) Urine Creatinine Vancomycin Trough Crossmatch 10/05/18 10/05/18 10/05/18 04:20 11:45 17:32 WBC RBC Hgb Hct MCH MCHC RDW Plt Count Lymph % (Auto) [place] % (Auto) Eos % (Auto) Lymph # [place] # Eos # Seg Neutrophils % Seg Neuts % (Manual) Lymphocytes % (Manual) Seg Neutrophils # Seg Neutrophils # Man Lymphocytes # (Manual) POC ABG pH POC ABG pO2 Sodium Potassium Chloride 110.0 H Carbon Dioxide 21 L BUN 64 H Creatinine Glucose POC Glucose 118 H 113 H Lactic Acid Calcium 8.3 L Phosphorus Magnesium AST Alkaline Phosphatase Troponin T C-Reactive Protein Albumin Cholesterol LDL Cholesterol Direct HDL Cholesterol Urine WBC (Auto) Urine Creatinine Vancomycin Trough Crossmatch 10/06/18 10/06/18 10/06/18 05:15 05:15 05:35 WBC 12.3 H RBC 2.77 L Hgb 7.6 L Hct 24.1 L MCH MCHC RDW 18.1 H Plt Count Lymph % (Auto) 4.9 L [place] % (Auto) Eos % (Auto) 7.3 H Lymph # 0.6 L [place] # Eos # 0.9 H Seg Neutrophils % 81.1 H Seg Neuts % (Manual) Lymphocytes % (Manual) Seg Neutrophils # 10.0 H Seg Neutrophils # Man Lymphocytes # (Manual) POC ABG pH POC ABG pO2 Sodium 146 H Potassium Chloride 112.1 H Carbon Dioxide BUN 57 H Creatinine Glucose 120 H POC Glucose 115 H Lactic Acid Calcium Phosphorus Magnesium AST Alkaline Phosphatase Troponin T C-Reactive Protein Albumin Cholesterol LDL Cholesterol Direct HDL Cholesterol Urine WBC (Auto) Urine Creatinine Vancomycin Trough Crossmatch 10/06/18 10/06/18 10/06/18 12:31 18:44 Unknown WBC RBC Hgb Hct MCH MCHC RDW Plt Count Lymph % (Auto) [place] % (Auto) Eos % (Auto) Lymph # [place] # Eos # Seg Neutrophils % Seg Neuts % (Manual) Lymphocytes % (Manual) Seg Neutrophils # Seg Neutrophils # Man Lymphocytes # (Manual) POC ABG pH POC ABG pO2 Sodium Potassium Chloride Carbon Dioxide BUN Creatinine Glucose POC Glucose 150 H 125 H Lactic Acid Calcium Phosphorus Magnesium AST Alkaline Phosphatase Troponin T C-Reactive Protein Albumin Cholesterol LDL Cholesterol Direct HDL Cholesterol Urine WBC (Auto) Urine Creatinine Vancomycin Trough 23.5 H Crossmatch 10/07/18 10/07/18 10/07/18 05:06 05:06 08:34 WBC RBC Hgb 8.2 L Hct 25.8 L MCH MCHC RDW Plt Count Lymph % (Auto) [place] % (Auto) Eos % (Auto) Lymph # [place] # Eos # Seg Neutrophils % Seg Neuts % (Manual) Lymphocytes % (Manual) Seg Neutrophils # Seg Neutrophils # Man Lymphocytes # (Manual) POC ABG pH POC ABG pO2 Sodium Potassium Chloride 112.2 H Carbon Dioxide 21 L BUN 43 H Creatinine Glucose POC Glucose Lactic Acid Calcium 8.3 L Phosphorus Magnesium AST Alkaline Phosphatase Troponin T C-Reactive Protein Albumin Cholesterol LDL Cholesterol Direct HDL Cholesterol Urine WBC (Auto) Urine Creatinine Vancomycin Trough 23.0 H Crossmatch 10/08/18 10/08/18 10/08/18 05:07 05:07 11:09 WBC RBC 2.86 L Hgb 8.0 L Hct 24.5 L MCH MCHC RDW 18.7 H Plt Count Lymph % (Auto) 7.8 L [place] % (Auto) 8.2 H Eos % (Auto) 5.9 H Lymph # 0.8 L [place] # 0.9 H Eos # 0.6 H Seg Neutrophils % 77.8 H Seg Neuts % (Manual) Lymphocytes % (Manual) Seg Neutrophils # 8.2 H Seg Neutrophils # Man Lymphocytes # (Manual) POC ABG pH POC ABG pO2 Sodium Potassium 5.1 H Chloride 111.8 H Carbon Dioxide BUN 37 H Creatinine Glucose 101 H POC Glucose Lactic Acid Calcium 8.3 L Phosphorus Magnesium 2.50 H AST Alkaline Phosphatase Troponin T C-Reactive Protein 11.40 H Albumin Cholesterol LDL Cholesterol Direct HDL Cholesterol Urine WBC (Auto) Urine Creatinine Vancomycin Trough Crossmatch 10/09/18 10/10/18 10/10/18 05:48 09:02 09:02 WBC 13.6 H RBC 2.80 L Hgb 7.5 L Hct 23.9 L MCH 27 L MCHC 31 L RDW 18.9 H Plt Count Lymph % (Auto) 5.7 L [place] % (Auto) 8.5 H Eos % (Auto) Lymph # 0.8 L [place] # 1.1 H Eos # Seg Neutrophils % 83.9 H Seg Neuts % (Manual) Lymphocytes % (Manual) Seg Neutrophils # 11.4 H Seg Neutrophils # Man Lymphocytes # (Manual) POC ABG pH POC ABG pO2 Sodium Potassium 5.2 H 5.6 H Chloride 112.9 H 111.7 H Carbon Dioxide 21 L BUN 34 H 32 H Creatinine 0.7 L Glucose 109 H POC Glucose Lactic Acid Calcium Phosphorus Magnesium AST Alkaline Phosphatase Troponin T C-Reactive Protein Albumin Cholesterol LDL Cholesterol Direct HDL Cholesterol Urine WBC (Auto) Urine Creatinine Vancomycin Trough Crossmatch 10/11/18 10/11/18 10/11/18 04:41 04:41 09:09 WBC 11.4 H RBC 2.52 L Hgb 6.9 L Hct 22.0 L MCH 27 L MCHC 31 L RDW 19.0 H Plt Count Lymph % (Auto) [place] % (Auto) Eos % (Auto) Lymph # [place] # Eos # Seg Neutrophils % Seg Neuts % (Manual) Lymphocytes % (Manual) Seg Neutrophils # Seg Neutrophils # Man Lymphocytes # (Manual) POC ABG pH POC ABG pO2 Sodium 146 H Potassium Chloride 113.0 H Carbon Dioxide BUN 30 H Creatinine Glucose POC Glucose Lactic Acid Calcium 8.2 L Phosphorus Magnesium AST Alkaline Phosphatase Troponin T C-Reactive Protein Albumin Cholesterol LDL Cholesterol Direct HDL Cholesterol Urine WBC (Auto) Urine Creatinine Vancomycin Trough Crossmatch See Detail 10/11/18 10/12/18 10/12/18 23:29 04:22 04:22 WBC RBC 2.98 L Hgb 8.3 L Hct 25.5 L MCH MCHC RDW 17.7 H Plt Count Lymph % (Auto) [place] % (Auto) Eos % (Auto) Lymph # [place] # Eos # Seg Neutrophils % Seg Neuts % (Manual) Lymphocytes % (Manual) Seg Neutrophils # Seg Neutrophils # Man Lymphocytes # (Manual) POC ABG pH POC ABG pO2 Sodium 146 H 146 H Potassium Chloride 110.6 H 112.8 H Carbon Dioxide BUN 30 H 29 H Creatinine Glucose 102 H POC Glucose Lactic Acid Calcium 8.2 L Phosphorus 4.60 H Magnesium AST Alkaline Phosphatase Troponin T C-Reactive Protein Albumin Cholesterol LDL Cholesterol Direct HDL Cholesterol Urine WBC (Auto) Urine Creatinine Vancomycin Trough Crossmatch 10/13/18 10/13/18 10/14/18 23:00 23:00 00:15 WBC RBC 2.95 L Hgb 8.6 L Hct 25.4 L MCH MCHC RDW 18.1 H Plt Count Lymph % (Auto) [place] % (Auto) Eos % (Auto) Lymph # [place] # Eos # Seg Neutrophils % Seg Neuts % (Manual) Lymphocytes % (Manual) Seg Neutrophils # Seg Neutrophils # Man Lymphocytes # (Manual) POC ABG pH POC ABG pO2 Sodium Potassium 5.4 H Chloride 111.4 H Carbon Dioxide BUN 30 H Creatinine Glucose 107 H POC Glucose 151 H Lactic Acid Calcium Phosphorus Magnesium AST Alkaline Phosphatase Troponin T C-Reactive Protein Albumin Cholesterol LDL Cholesterol Direct HDL Cholesterol Urine WBC (Auto) Urine Creatinine Vancomycin Trough Crossmatch 10/14/18 10/14/18 10/15/18 07:18 18:33 05:32 WBC RBC Hgb Hct MCH MCHC RDW Plt Count Lymph % (Auto) [place] % (Auto) Eos % (Auto) Lymph # [place] # Eos # Seg Neutrophils % Seg Neuts % (Manual) Lymphocytes % (Manual) Seg Neutrophils # Seg Neutrophils # Man Lymphocytes # (Manual) POC ABG pH POC ABG pO2 Sodium 146 H Potassium 5.3 H 3.5 L D Chloride 112.3 H 111.1 H Carbon Dioxide BUN 29 H 28 H Creatinine Glucose 106 H 103 H POC Glucose 124 H Lactic Acid Calcium Phosphorus Magnesium AST Alkaline Phosphatase Troponin T C-Reactive Protein Albumin Cholesterol LDL Cholesterol Direct HDL Cholesterol Urine WBC (Auto) Urine Creatinine Vancomycin Trough Crossmatch 10/15/18 10/15/18 10/16/18 05:32 11:59 00:02 WBC RBC 2.93 L Hgb 8.2 L Hct 25.4 L MCH MCHC RDW 17.5 H Plt Count Lymph % (Auto) [place] % (Auto) Eos % (Auto) Lymph # [place] # Eos # Seg Neutrophils % Seg Neuts % (Manual) Lymphocytes % (Manual) Seg Neutrophils # Seg Neutrophils # Man Lymphocytes # (Manual) POC ABG pH POC ABG pO2 Sodium Potassium Chloride Carbon Dioxide BUN Creatinine Glucose POC Glucose 110 H 107 H Lactic Acid Calcium Phosphorus Magnesium AST Alkaline Phosphatase Troponin T C-Reactive Protein Albumin Cholesterol LDL Cholesterol Direct HDL Cholesterol Urine WBC (Auto) Urine Creatinine Vancomycin Trough Crossmatch 10/16/18 10/16/18 10/17/18 05:02 23:27 06:00 WBC RBC Hgb Hct MCH MCHC RDW Plt Count Lymph % (Auto) [place] % (Auto) Eos % (Auto) Lymph # [place] # Eos # Seg Neutrophils % Seg Neuts % (Manual) Lymphocytes % (Manual) Seg Neutrophils # Seg Neutrophils # Man Lymphocytes # (Manual) POC ABG pH POC ABG pO2 Sodium Potassium 3.3 L Chloride 108.9 H 107.5 H Carbon Dioxide BUN 27 H 26 H Creatinine 0.7 L Glucose 118 H POC Glucose 113 H Lactic Acid Calcium Phosphorus Magnesium AST Alkaline Phosphatase Troponin T C-Reactive Protein Albumin Cholesterol LDL Cholesterol Direct HDL Cholesterol Urine WBC (Auto) Urine Creatinine Vancomycin Trough Crossmatch 10/17/18 10/17/18 10/18/18 11:50 16:36 00:50 WBC RBC Hgb Hct MCH MCHC RDW Plt Count Lymph % (Auto) [place] % (Auto) Eos % (Auto) Lymph # [place] # Eos # Seg Neutrophils % Seg Neuts % (Manual) Lymphocytes % (Manual) Seg Neutrophils # Seg Neutrophils # Man Lymphocytes # (Manual) POC ABG pH POC ABG pO2 Sodium Potassium Chloride Carbon Dioxide BUN Creatinine Glucose POC Glucose 108 H 106 H 111 H Lactic Acid Calcium Phosphorus Magnesium AST Alkaline Phosphatase Troponin T C-Reactive Protein Albumin Cholesterol LDL Cholesterol Direct HDL Cholesterol Urine WBC (Auto) Urine Creatinine Vancomycin Trough Crossmatch 10/18/18 10/18/18 06:26 12:54 WBC RBC Hgb Hct MCH MCHC RDW Plt Count Lymph % (Auto) [place] % (Auto) Eos % (Auto) Lymph # [place] # Eos # Seg Neutrophils % Seg Neuts % (Manual) Lymphocytes % (Manual) Seg Neutrophils # Seg Neutrophils # Man Lymphocytes # (Manual) POC ABG pH POC ABG pO2 Sodium Potassium Chloride Carbon Dioxide BUN Creatinine Glucose POC Glucose 112 H 113 H Lactic Acid Calcium Phosphorus Magnesium AST Alkaline Phosphatase Troponin T C-Reactive Protein Albumin Cholesterol LDL Cholesterol Direct HDL Cholesterol Urine WBC (Auto) Urine Creatinine Vancomycin Trough Crossmatch Allied health notes reviewed: nursing
--- NOTE | 2018-10-18 16:25 | Progress Note ---
Assessment and Plan / Severe sepsis with shock, POA due to bacteremia, UTI and RUL PNA continue Sepsis Protocol: IV antibiotic therapy, IVF resuscitation therapy, MRSA on Blood cultures, s/p IV pressors , ID consulted Per ID: - Continue vancomycin now for MRSA bacteremia. So far no clear source for MRSA bacteremia but suspected possible infected decubitus ulcer - treated with meropenem for 5 days to cover UTI as urine culture was not sent and he has h/o MDR GNRs - Anticipate discharge on Vancomycin 1 gm every 48 hours for total 6 weeks ending 11-12-18 - Again, this infection is incurable, patient's family has been advised hospice several times in the past but refused /MRSA bacteremia - possible source infected decubitus ulcer - cont vanc, ID following, 2d echo showed no vegetation /Decubitus ulcer, multiple with different stages - cont wound care, abx per ID - Could be the source for bacteremia, ID ordered for WBC scan but could not be done because of his chronic contracture/anatomical position /Anemia, s/p 2 units blood transfusion, likely AOCD and severe sepsis - stool for occult blood negative, cont to monitor / MÓNICA with vasomotor nephropathy renal function stable with IVF resuscitation therapy, monitor uop q shift, nephrology consulted in ED. /Right upper lobe Pneumonia, suspect aspiration Treated with IV antibiotic therapy, supplemental oxygen, pulse oximetry, / Elevated troponin Likely due to sepsis with low blood pressure and renal failure Monitor with Serial cardiac enzymes, Cardiology consulted in ED, No EKG changes, supportive care, / UTI (lower urinary tract infection) Treated with IV antibiotic therapy, IV fluids /Acute hypoxic Respiratory failure Likely due to underlying pneumonia Continue to provide Supplemental oxygen, nebulizer therapy, NIPPV as clinically indicated, pulse oximetry, /Moderate to severe protein calorie malnutrition - BMI 17.8, albumin 1.7 - consulted dietary, continue tube feeding for now hypernatremia, on hypotonic saline Hypokalemia/hyperkalemia, -cont to monitor /Hypertension, placed on clonidine patch / DVT prophylaxis SCD to BLE while in bed, prophylactic heparin Disposition: SNF when isolation bed available Brief History: 67 YO Male [facility] Resident as [facility] with HTN, CVA, Obstructive Uropathy, Contracture, Decubitus Ulcers, OH, DM, OA, Seizure Disorder, COPD, Dementia, Debility, BPH presented to ED for evaluation, As per staff, the patient was found to have decreased responsiveness compared to baseline. Pt seen and evaluated in ED and found to have Sepsis secondary to UTI with concomitant RUL Pneumonia with a QSofa score of 8, GCS:3, MAP less than 70, Creatnine:2.1, Encephalopathy, and symptomatic anemia. Pt was admitted to ICU and initiated on Sepsis protocol. Now being treated for MRSA bacteremia. Radiological data: Chest x-ray: Limited exam. Mild cardiomegaly. The lungs are grossly clear although there is poor visualization of the right upper lobe. 2-D echo: Preserved EF with abnormal left ventricular diastolic filling pressure Hospitalist Physical exam: GENERAL: Elderly male lying on bed appeared to be in no discomfort. It appears to be very lethargic and aphasic HEENT: Normocephalic. Atraumatic. No conjunctival congestion or icterus. Patient has moist mucous membranes. NECK: Supple. Trachea midline. CHEST/LUNGS: Clear to auscultated bilaterally, breathing nonlabored. No wheezes crackles or rhonchi. HEART/CARDIOVASCULAR: Regular in rate and rhythm. S1 and S2 positive. ABDOMEN: Abdomen is soft, nontender. Patient has normal bowel sounds. SKIN: There is no rash. Warm and dry. NEURO: Does not Follow command. MUSCULOSKELETAL: No joint effusion, generalized weakness unable to move extremities EXTRIMITY: No edema, no cyanosis or clubbing. PSYCH: Unable to assess. Subjective Date of service: 10/18/18 Principal diagnosis: Septic shock; Ac encephalopathy; Multiple decubitus ulcers; Ac renal failur Interval history: Patient seen and examined. Medical records and medication list reviewed. No acute event overnight noted by the RN. Patient unable to provide any history with severe dementia Patient on nasal cannula , on tube feeding, no sign of active bleeding Discussed plan of care at bedside with RN. Discharge pending on placement Objective - Constitutional Vitals: Vital Signs - 12hr 10/18/18 10/18/18 10/18/18 05:29 10:00 10:31 Temperature 98.7 F 98.6 F Pulse Rate 92 H 85 Respiratory 20 20 18 Rate Blood Pressure 149/92 141/56 O2 Sat by Pulse 95 98 Oximetry 10/18/18 10/18/18 10:51 12:47 Temperature Pulse Rate 71 78 Respiratory Rate Blood Pressure 137/75 127/64 O2 Sat by Pulse 99 98 Oximetry - Labs CBC & Chem 7: 10/15/18 05:32 10/17/18 06:00 Labs: Abnormal lab results 10/17/18 10/18/18 10/18/18 Range/Units 16:36 00:50 06:26 POC Glucose 106 H 111 H 112 H (70-105) 10/18/18 Range/Units 12:54 POC Glucose 113 H (70-105)
--- NOTE | 2018-10-18 17:29 | Progress Note ---
Assessment and Plan Severe Sepsis with septic shock GPC bacteremia Acute encephalopathy Multiple decubitus ulcers Acute metabolic encephaloapthy Hypernatremia (resolved) Recurrent CAUTI Lactic acidosis Acute renal failure- prerenal/vasomotor nephropathy - continue to wean supplemental oxygen for O2 sats>90% - complete Vancomyxin dosing for MRSA bacteremia (source presumably from infected decubitus ulcer) - continue GI & VTE prophylaxis - continue aspiration precautions - continue enteral nutrition at goal rate as tolerated - continue to monitor renal indices closely (MÓNICA resolved - continue mobility protocol as tolerated for pressure ulcer prophylaxis - wound care per WCT - continue accuchecks with glycemic control per SSI for target glucose of 140- 180 mg/dL - continue bronchodilators with pulmonary hygiene per RT - Influenza and pneumonia vaccination per protocol .... discharge planning ongoing concurrently ...re-evaluate in am & prn Subjective Date of service: 10/18/18 Principal diagnosis: Septic shock; Ac encephalopathy; Multiple decubitus ulcers; Ac renal failur Interval history: Patient is seen today for: Severe Sepsis with septic shock; GPC bacteremia; Acute encephalopathy; Multiple decubitus ulcers; Acute metabolic encephaloapthy; Hypernatremia; Recurrent CAUTI; Lactic acidosis; Acute renal failure- prerenal/vasomotor nephropathy Seen and examined at bedside; 24hour events reviewed; nursing and respiratory care staff consulted; no adverse overnight events reported to me; resting peacefully in bed; no emesis or overt aspiration;; remains on supplemental oxygen; Afebrile Objective Vital Signs - 12hr 10/18/18 10/18/18 10/18/18 10:00 10:31 10:51 Temperature 98.6 F Pulse Rate 85 71 Respiratory 20 18 Rate Blood Pressure 141/56 137/75 O2 Sat by Pulse 98 99 Oximetry 10/18/18 12:47 Temperature Pulse Rate 78 Respiratory Rate Blood Pressure 127/64 O2 Sat by Pulse 98 Oximetry Constitutional: no acute distress, asleep, other (elderly looking AAM, normocephalic but contrated and with mildly increased work of breathing at rest) Eyes: non-icteric ENT: oropharynx moist Neck: no lymphadenopathy, no JVD, other (neck stiff and deviated to the right side) Effort: normal Ascultation: Bilateral: diminished breath sounds, rhonchi (scant) Percussion: Bilateral: not dull Cardiovascular: regular rate and rhythm Gastrointestinal: normoactive bowel sounds, soft, non-tender, non-distended, other (PEG tube) Integumentary: rash Extremities: no cyanosis, no edema, pulses normal, no ischemia or petechiae Neurologic: pupils equal and round, other (tardive dyskinetic movts) Psychiatric: other (unable to assess) CBC and BMP: 10/15/18 05:32 10/17/18 06:00 ABG, PT/INR, D-dimer: ABG POC ABG pH 7.480 (7.35-7.45) H 10/01/18 18:12 POC ABG pO2 64 (80-105) L 10/01/18 18:12 POC ABG HCO3 21.0 (22-26 mml/L) 10/01/18 18:12 POC ABG Total CO2 22 (23-27mmol/L) 10/01/18 18:12 POC ABG O2 Sat 94 10/01/18 18:12 Abnormal lab findings: Abnormal Labs 10/01/18 10/01/18 10/01/18 14:29 14:29 15:13 WBC 18.5 H RBC 2.68 L Hgb 7.3 L Hct 23.1 L MCH 27 L MCHC 31 L RDW 19.3 H Plt Count 522 H Lymph % (Auto) 6.7 L Orange % (Auto) Eos % (Auto) Lymph # Orange # 1.2 H Eos # Seg Neutrophils % 85.0 H Seg Neuts % (Manual) Lymphocytes % (Manual) Seg Neutrophils # 15.7 H Seg Neutrophils # Man Lymphocytes # (Manual) POC ABG pH POC ABG pO2 Sodium 148 H Potassium 3.3 L Chloride Carbon Dioxide BUN 98 H Creatinine 2.0 H Glucose 142 H POC Glucose Lactic Acid Calcium Phosphorus Magnesium AST Alkaline Phosphatase Troponin T 0.361 H* C-Reactive Protein Albumin Cholesterol 36 L LDL Cholesterol Direct 6 L HDL Cholesterol 21 L Urine WBC (Auto) > 182.0 H Urine Creatinine Vancomycin Trough Crossmatch 10/01/18 10/01/18 10/01/18 15:15 15:15 17:03 WBC RBC Hgb Hct MCH MCHC RDW Plt Count Lymph % (Auto) Orange % (Auto) Eos % (Auto) Lymph # Orange # Eos # Seg Neutrophils % Seg Neuts % (Manual) Lymphocytes % (Manual) Seg Neutrophils # Seg Neutrophils # Man Lymphocytes # (Manual) POC ABG pH POC ABG pO2 Sodium 150 H Potassium Chloride Carbon Dioxide BUN 94 H Creatinine 2.1 H Glucose 132 H POC Glucose Lactic Acid 2.60 H* 2.20 H* Calcium 7.8 L Phosphorus Magnesium AST 47 H Alkaline Phosphatase 179 H Troponin T C-Reactive Protein Albumin 2.1 L Cholesterol LDL Cholesterol Direct HDL Cholesterol Urine WBC (Auto) Urine Creatinine Vancomycin Trough Crossmatch 10/01/18 10/01/18 10/01/18 18:12 18:23 18:23 WBC RBC Hgb Hct MCH MCHC RDW Plt Count Lymph % (Auto) Orange % (Auto) Eos % (Auto) Lymph # Orange # Eos # Seg Neutrophils % Seg Neuts % (Manual) Lymphocytes % (Manual) Seg Neutrophils # Seg Neutrophils # Man Lymphocytes # (Manual) POC ABG pH 7.480 H POC ABG pO2 64 L Sodium Potassium Chloride Carbon Dioxide BUN Creatinine Glucose POC Glucose Lactic Acid Calcium Phosphorus Magnesium 3.30 H AST Alkaline Phosphatase Troponin T 0.378 H* C-Reactive Protein Albumin Cholesterol LDL Cholesterol Direct HDL Cholesterol Urine WBC (Auto) Urine Creatinine Vancomycin Trough Crossmatch 10/01/18 10/01/18 10/01/18 18:48 21:20 23:48 WBC RBC Hgb Hct MCH MCHC RDW Plt Count Lymph % (Auto) Orange % (Auto) Eos % (Auto) Lymph # Orange # Eos # Seg Neutrophils % Seg Neuts % (Manual) Lymphocytes % (Manual) Seg Neutrophils # Seg Neutrophils # Man Lymphocytes # (Manual) POC ABG pH POC ABG pO2 Sodium Potassium Chloride Carbon Dioxide BUN Creatinine Glucose POC Glucose Lactic Acid 2.30 H* 2.70 H* Calcium Phosphorus Magnesium AST Alkaline Phosphatase Troponin T 0.336 H* C-Reactive Protein Albumin Cholesterol LDL Cholesterol Direct HDL Cholesterol Urine WBC (Auto) Urine Creatinine Vancomycin Trough Crossmatch 10/01/18 10/02/18 10/02/18 23:48 04:45 04:45 WBC 18.3 H RBC 2.40 L Hgb 6.4 L Hct 20.4 L MCH 27 L MCHC 31 L RDW 19.1 H Plt Count 462 H Lymph % (Auto) Orange % (Auto) Eos % (Auto) Lymph # Orange # Eos # Seg Neutrophils % Seg Neuts % (Manual) 78.0 H Lymphocytes % (Manual) 5.0 L Seg Neutrophils # Seg Neutrophils # Man 14.3 H Lymphocytes # (Manual) 0.9 L POC ABG pH POC ABG pO2 Sodium Potassium Chloride Carbon Dioxide BUN Creatinine Glucose POC Glucose Lactic Acid 2.50 H* Calcium Phosphorus Magnesium AST Alkaline Phosphatase Troponin T C-Reactive Protein Albumin Cholesterol LDL Cholesterol Direct HDL Cholesterol Urine WBC (Auto) Urine Creatinine 74.7 H Vancomycin Trough Crossmatch 10/02/18 10/02/18 10/02/18 04:45 04:45 04:45 WBC RBC Hgb Hct MCH MCHC RDW Plt Count Lymph % (Auto) Orange % (Auto) Eos % (Auto) Lymph # Orange # Eos # Seg Neutrophils % Seg Neuts % (Manual) Lymphocytes % (Manual) Seg Neutrophils # Seg Neutrophils # Man Lymphocytes # (Manual) POC ABG pH POC ABG pO2 Sodium 148 H Potassium 3.1 L Chloride 108.6 H Carbon Dioxide 21 L BUN 89 H Creatinine 1.8 H Glucose POC Glucose Lactic Acid 2.10 H* Calcium 8.3 L Phosphorus 5.00 H Magnesium AST Alkaline Phosphatase 161 H Troponin T C-Reactive Protein Albumin 1.7 L Cholesterol LDL Cholesterol Direct HDL Cholesterol Urine WBC (Auto) Urine Creatinine Vancomycin Trough Crossmatch 10/02/18 10/02/18 10/03/18 09:46 11:47 00:03 WBC RBC Hgb Hct MCH MCHC RDW Plt Count Lymph % (Auto) Orange % (Auto) Eos % (Auto) Lymph # Orange # Eos # Seg Neutrophils % Seg Neuts % (Manual) Lymphocytes % (Manual) Seg Neutrophils # Seg Neutrophils # Man Lymphocytes # (Manual) POC ABG pH POC ABG pO2 Sodium Potassium Chloride Carbon Dioxide BUN Creatinine Glucose POC Glucose 112 H 106 H Lactic Acid Calcium Phosphorus Magnesium AST Alkaline Phosphatase Troponin T C-Reactive Protein Albumin Cholesterol LDL Cholesterol Direct HDL Cholesterol Urine WBC (Auto) Urine Creatinine Vancomycin Trough Crossmatch See Detail 10/03/18 10/03/18 10/03/18 06:06 06:45 06:45 WBC 17.3 H RBC 2.81 L Hgb 7.6 L Hct 24.1 L MCH 27 L MCHC 31 L RDW 18.4 H Plt Count 473 H Lymph % (Auto) 5.2 L Orange % (Auto) Eos % (Auto) 4.6 H Lymph # 0.9 L Orange # Eos # 0.8 H Seg Neutrophils % 85.7 H Seg Neuts % (Manual) Lymphocytes % (Manual) Seg Neutrophils # 14.8 H Seg Neutrophils # Man Lymphocytes # (Manual) POC ABG pH POC ABG pO2 Sodium 148 H Potassium Chloride 112.1 H Carbon Dioxide 21 L BUN 79 H Creatinine 1.7 H Glucose 116 H POC Glucose 130 H Lactic Acid Calcium 7.9 L Phosphorus Magnesium AST Alkaline Phosphatase Troponin T C-Reactive Protein Albumin Cholesterol LDL Cholesterol Direct HDL Cholesterol Urine WBC (Auto) Urine Creatinine Vancomycin Trough Crossmatch 10/03/18 10/03/18 10/03/18 11:50 17:42 23:20 WBC RBC Hgb Hct MCH MCHC RDW Plt Count Lymph % (Auto) Orange % (Auto) Eos % (Auto) Lymph # Orange # Eos # Seg Neutrophils % Seg Neuts % (Manual) Lymphocytes % (Manual) Seg Neutrophils # Seg Neutrophils # Man Lymphocytes # (Manual) POC ABG pH POC ABG pO2 Sodium Potassium Chloride Carbon Dioxide BUN Creatinine Glucose POC Glucose 126 H 118 H 106 H Lactic Acid Calcium Phosphorus Magnesium AST Alkaline Phosphatase Troponin T C-Reactive Protein Albumin Cholesterol LDL Cholesterol Direct HDL Cholesterol Urine WBC (Auto) Urine Creatinine Vancomycin Trough Crossmatch 10/04/18 10/04/18 10/04/18 05:22 07:00 07:00 WBC 14.8 H RBC 2.38 L Hgb 6.4 L Hct 20.5 L MCH 27 L MCHC 31 L RDW 18.2 H Plt Count Lymph % (Auto) 5.3 L Orange % (Auto) Eos % (Auto) 9.5 H Lymph # 0.8 L Orange # Eos # 1.4 H Seg Neutrophils % 81.2 H Seg Neuts % (Manual) Lymphocytes % (Manual) Seg Neutrophils # 12.0 H Seg Neutrophils # Man Lymphocytes # (Manual) POC ABG pH POC ABG pO2 Sodium 148 H Potassium Chloride 112.0 H Carbon Dioxide BUN 73 H Creatinine Glucose 105 H POC Glucose 115 H Lactic Acid Calcium 8.1 L Phosphorus Magnesium AST Alkaline Phosphatase Troponin T C-Reactive Protein Albumin 1.5 L Cholesterol LDL Cholesterol Direct HDL Cholesterol Urine WBC (Auto) Urine Creatinine Vancomycin Trough Crossmatch 10/04/18 10/04/18 10/05/18 12:35 18:28 04:20 WBC 14.1 H RBC 2.94 L Hgb 8.2 L Hct 25.2 L MCH MCHC RDW 17.9 H Plt Count Lymph % (Auto) 6.6 L Orange % (Auto) Eos % (Auto) 6.4 H Lymph # 0.9 L Orange # Eos # 0.9 H Seg Neutrophils % 82.7 H Seg Neuts % (Manual) Lymphocytes % (Manual) Seg Neutrophils # 11.6 H Seg Neutrophils # Man Lymphocytes # (Manual) POC ABG pH POC ABG pO2 Sodium Potassium Chloride Carbon Dioxide BUN Creatinine Glucose POC Glucose 109 H 109 H Lactic Acid Calcium Phosphorus Magnesium AST Alkaline Phosphatase Troponin T C-Reactive Protein Albumin Cholesterol LDL Cholesterol Direct HDL Cholesterol Urine WBC (Auto) Urine Creatinine Vancomycin Trough Crossmatch 10/05/18 10/05/18 10/05/18 04:20 11:45 17:32 WBC RBC Hgb Hct MCH MCHC RDW Plt Count Lymph % (Auto) Orange % (Auto) Eos % (Auto) Lymph # Orange # Eos # Seg Neutrophils % Seg Neuts % (Manual) Lymphocytes % (Manual) Seg Neutrophils # Seg Neutrophils # Man Lymphocytes # (Manual) POC ABG pH POC ABG pO2 Sodium Potassium Chloride 110.0 H Carbon Dioxide 21 L BUN 64 H Creatinine Glucose POC Glucose 118 H 113 H Lactic Acid Calcium 8.3 L Phosphorus Magnesium AST Alkaline Phosphatase Troponin T C-Reactive Protein Albumin Cholesterol LDL Cholesterol Direct HDL Cholesterol Urine WBC (Auto) Urine Creatinine Vancomycin Trough Crossmatch 10/06/18 10/06/18 10/06/18 05:15 05:15 05:35 WBC 12.3 H RBC 2.77 L Hgb 7.6 L Hct 24.1 L MCH MCHC RDW 18.1 H Plt Count Lymph % (Auto) 4.9 L Orange % (Auto) Eos % (Auto) 7.3 H Lymph # 0.6 L Orange # Eos # 0.9 H Seg Neutrophils % 81.1 H Seg Neuts % (Manual) Lymphocytes % (Manual) Seg Neutrophils # 10.0 H Seg Neutrophils # Man Lymphocytes # (Manual) POC ABG pH POC ABG pO2 Sodium 146 H Potassium Chloride 112.1 H Carbon Dioxide BUN 57 H Creatinine Glucose 120 H POC Glucose 115 H Lactic Acid Calcium Phosphorus Magnesium AST Alkaline Phosphatase Troponin T C-Reactive Protein Albumin Cholesterol LDL Cholesterol Direct HDL Cholesterol Urine WBC (Auto) Urine Creatinine Vancomycin Trough Crossmatch 10/06/18 10/06/18 10/06/18 12:31 18:44 Unknown WBC RBC Hgb Hct MCH MCHC RDW Plt Count Lymph % (Auto) Orange % (Auto) Eos % (Auto) Lymph # Orange # Eos # Seg Neutrophils % Seg Neuts % (Manual) Lymphocytes % (Manual) Seg Neutrophils # Seg Neutrophils # Man Lymphocytes # (Manual) POC ABG pH POC ABG pO2 Sodium Potassium Chloride Carbon Dioxide BUN Creatinine Glucose POC Glucose 150 H 125 H Lactic Acid Calcium Phosphorus Magnesium AST Alkaline Phosphatase Troponin T C-Reactive Protein Albumin Cholesterol LDL Cholesterol Direct HDL Cholesterol Urine WBC (Auto) Urine Creatinine Vancomycin Trough 23.5 H Crossmatch 10/07/18 10/07/18 10/07/18 05:06 05:06 08:34 WBC RBC Hgb 8.2 L Hct 25.8 L MCH MCHC RDW Plt Count Lymph % (Auto) Orange % (Auto) Eos % (Auto) Lymph # Orange # Eos # Seg Neutrophils % Seg Neuts % (Manual) Lymphocytes % (Manual) Seg Neutrophils # Seg Neutrophils # Man Lymphocytes # (Manual) POC ABG pH POC ABG pO2 Sodium Potassium Chloride 112.2 H Carbon Dioxide 21 L BUN 43 H Creatinine Glucose POC Glucose Lactic Acid Calcium 8.3 L Phosphorus Magnesium AST Alkaline Phosphatase Troponin T C-Reactive Protein Albumin Cholesterol LDL Cholesterol Direct HDL Cholesterol Urine WBC (Auto) Urine Creatinine Vancomycin Trough 23.0 H Crossmatch 10/08/18 10/08/18 10/08/18 05:07 05:07 11:09 WBC RBC 2.86 L Hgb 8.0 L Hct 24.5 L MCH MCHC RDW 18.7 H Plt Count Lymph % (Auto) 7.8 L Orange % (Auto) 8.2 H Eos % (Auto) 5.9 H Lymph # 0.8 L Orange # 0.9 H Eos # 0.6 H Seg Neutrophils % 77.8 H Seg Neuts % (Manual) Lymphocytes % (Manual) Seg Neutrophils # 8.2 H Seg Neutrophils # Man Lymphocytes # (Manual) POC ABG pH POC ABG pO2 Sodium Potassium 5.1 H Chloride 111.8 H Carbon Dioxide BUN 37 H Creatinine Glucose 101 H POC Glucose Lactic Acid Calcium 8.3 L Phosphorus Magnesium 2.50 H AST Alkaline Phosphatase Troponin T C-Reactive Protein 11.40 H Albumin Cholesterol LDL Cholesterol Direct HDL Cholesterol Urine WBC (Auto) Urine Creatinine Vancomycin Trough Crossmatch 10/09/18 10/10/18 10/10/18 05:48 09:02 09:02 WBC 13.6 H RBC 2.80 L Hgb 7.5 L Hct 23.9 L MCH 27 L MCHC 31 L RDW 18.9 H Plt Count Lymph % (Auto) 5.7 L Orange % (Auto) 8.5 H Eos % (Auto) Lymph # 0.8 L Orange # 1.1 H Eos # Seg Neutrophils % 83.9 H Seg Neuts % (Manual) Lymphocytes % (Manual) Seg Neutrophils # 11.4 H Seg Neutrophils # Man Lymphocytes # (Manual) POC ABG pH POC ABG pO2 Sodium Potassium 5.2 H 5.6 H Chloride 112.9 H 111.7 H Carbon Dioxide 21 L BUN 34 H 32 H Creatinine 0.7 L Glucose 109 H POC Glucose Lactic Acid Calcium Phosphorus Magnesium AST Alkaline Phosphatase Troponin T C-Reactive Protein Albumin Cholesterol LDL Cholesterol Direct HDL Cholesterol Urine WBC (Auto) Urine Creatinine Vancomycin Trough Crossmatch 10/11/18 10/11/18 10/11/18 04:41 04:41 09:09 WBC 11.4 H RBC 2.52 L Hgb 6.9 L Hct 22.0 L MCH 27 L MCHC 31 L RDW 19.0 H Plt Count Lymph % (Auto) Orange % (Auto) Eos % (Auto) Lymph # Orange # Eos # Seg Neutrophils % Seg Neuts % (Manual) Lymphocytes % (Manual) Seg Neutrophils # Seg Neutrophils # Man Lymphocytes # (Manual) POC ABG pH POC ABG pO2 Sodium 146 H Potassium Chloride 113.0 H Carbon Dioxide BUN 30 H Creatinine Glucose POC Glucose Lactic Acid Calcium 8.2 L Phosphorus Magnesium AST Alkaline Phosphatase Troponin T C-Reactive Protein Albumin Cholesterol LDL Cholesterol Direct HDL Cholesterol Urine WBC (Auto) Urine Creatinine Vancomycin Trough Crossmatch See Detail 10/11/18 10/12/18 10/12/18 23:29 04:22 04:22 WBC RBC 2.98 L Hgb 8.3 L Hct 25.5 L MCH MCHC RDW 17.7 H Plt Count Lymph % (Auto) Orange % (Auto) Eos % (Auto) Lymph # Orange # Eos # Seg Neutrophils % Seg Neuts % (Manual) Lymphocytes % (Manual) Seg Neutrophils # Seg Neutrophils # Man Lymphocytes # (Manual) POC ABG pH POC ABG pO2 Sodium 146 H 146 H Potassium Chloride 110.6 H 112.8 H Carbon Dioxide BUN 30 H 29 H Creatinine Glucose 102 H POC Glucose Lactic Acid Calcium 8.2 L Phosphorus 4.60 H Magnesium AST Alkaline Phosphatase Troponin T C-Reactive Protein Albumin Cholesterol LDL Cholesterol Direct HDL Cholesterol Urine WBC (Auto) Urine Creatinine Vancomycin Trough Crossmatch 10/13/18 10/13/18 10/14/18 23:00 23:00 00:15 WBC RBC 2.95 L Hgb 8.6 L Hct 25.4 L MCH MCHC RDW 18.1 H Plt Count Lymph % (Auto) Orange % (Auto) Eos % (Auto) Lymph # Orange # Eos # Seg Neutrophils % Seg Neuts % (Manual) Lymphocytes % (Manual) Seg Neutrophils # Seg Neutrophils # Man Lymphocytes # (Manual) POC ABG pH POC ABG pO2 Sodium Potassium 5.4 H Chloride 111.4 H Carbon Dioxide BUN 30 H Creatinine Glucose 107 H POC Glucose 151 H Lactic Acid Calcium Phosphorus Magnesium AST Alkaline Phosphatase Troponin T C-Reactive Protein Albumin Cholesterol LDL Cholesterol Direct HDL Cholesterol Urine WBC (Auto) Urine Creatinine Vancomycin Trough Crossmatch 10/14/18 10/14/18 10/15/18 07:18 18:33 05:32 WBC RBC Hgb Hct MCH MCHC RDW Plt Count Lymph % (Auto) Orange % (Auto) Eos % (Auto) Lymph # Orange # Eos # Seg Neutrophils % Seg Neuts % (Manual) Lymphocytes % (Manual) Seg Neutrophils # Seg Neutrophils # Man Lymphocytes # (Manual) POC ABG pH POC ABG pO2 Sodium 146 H Potassium 5.3 H 3.5 L D Chloride 112.3 H 111.1 H Carbon Dioxide BUN 29 H 28 H Creatinine Glucose 106 H 103 H POC Glucose 124 H Lactic Acid Calcium Phosphorus Magnesium AST Alkaline Phosphatase Troponin T C-Reactive Protein Albumin Cholesterol LDL Cholesterol Direct HDL Cholesterol Urine WBC (Auto) Urine Creatinine Vancomycin Trough Crossmatch 10/15/18 10/15/18 10/16/18 05:32 11:59 00:02 WBC RBC 2.93 L Hgb 8.2 L Hct 25.4 L MCH MCHC RDW 17.5 H Plt Count Lymph % (Auto) Orange % (Auto) Eos % (Auto) Lymph # Orange # Eos # Seg Neutrophils % Seg Neuts % (Manual) Lymphocytes % (Manual) Seg Neutrophils # Seg Neutrophils # Man Lymphocytes # (Manual) POC ABG pH POC ABG pO2 Sodium Potassium Chloride Carbon Dioxide BUN Creatinine Glucose POC Glucose 110 H 107 H Lactic Acid Calcium Phosphorus Magnesium AST Alkaline Phosphatase Troponin T C-Reactive Protein Albumin Cholesterol LDL Cholesterol Direct HDL Cholesterol Urine WBC (Auto) Urine Creatinine Vancomycin Trough Crossmatch 10/16/18 10/16/18 10/17/18 05:02 23:27 06:00 WBC RBC Hgb Hct MCH MCHC RDW Plt Count Lymph % (Auto) Orange % (Auto) Eos % (Auto) Lymph # Orange # Eos # Seg Neutrophils % Seg Neuts % (Manual) Lymphocytes % (Manual) Seg Neutrophils # Seg Neutrophils # Man Lymphocytes # (Manual) POC ABG pH POC ABG pO2 Sodium Potassium 3.3 L Chloride 108.9 H 107.5 H Carbon Dioxide BUN 27 H 26 H Creatinine 0.7 L Glucose 118 H POC Glucose 113 H Lactic Acid Calcium Phosphorus Magnesium AST Alkaline Phosphatase Troponin T C-Reactive Protein Albumin Cholesterol LDL Cholesterol Direct HDL Cholesterol Urine WBC (Auto) Urine Creatinine Vancomycin Trough Crossmatch 10/17/18 10/17/18 10/18/18 11:50 16:36 00:50 WBC RBC Hgb Hct MCH MCHC RDW Plt Count Lymph % (Auto) Orange % (Auto) Eos % (Auto) Lymph # Orange # Eos # Seg Neutrophils % Seg Neuts % (Manual) Lymphocytes % (Manual) Seg Neutrophils # Seg Neutrophils # Man Lymphocytes # (Manual) POC ABG pH POC ABG pO2 Sodium Potassium Chloride Carbon Dioxide BUN Creatinine Glucose POC Glucose 108 H 106 H 111 H Lactic Acid Calcium Phosphorus Magnesium AST Alkaline Phosphatase Troponin T C-Reactive Protein Albumin Cholesterol LDL Cholesterol Direct HDL Cholesterol Urine WBC (Auto) Urine Creatinine Vancomycin Trough Crossmatch 10/18/18 10/18/18 06:26 12:54 WBC RBC Hgb Hct MCH MCHC RDW Plt Count Lymph % (Auto) Orange % (Auto) Eos % (Auto) Lymph # Orange # Eos # Seg Neutrophils % Seg Neuts % (Manual) Lymphocytes % (Manual) Seg Neutrophils # Seg Neutrophils # Man Lymphocytes # (Manual) POC ABG pH POC ABG pO2 Sodium Potassium Chloride Carbon Dioxide BUN Creatinine Glucose POC Glucose 112 H 113 H Lactic Acid Calcium Phosphorus Magnesium AST Alkaline Phosphatase Troponin T C-Reactive Protein Albumin Cholesterol LDL Cholesterol Direct HDL Cholesterol Urine WBC (Auto) Urine Creatinine Vancomycin Trough Crossmatch Allied health notes reviewed: nursing
[2018-10-19] MEDS: HumaLOG SUB-Q SCH ×4 (06:00→18:43)
--- NOTE | 2018-10-19 10:22 | Progress Note ---
Assessment and Plan Severe sepsis with shock, POA due to bacteremia, UTI and RUL PNA continue Sepsis Protocol: IV antibiotic therapy, IVF resuscitation therapy, MRSA on Blood cultures, s/p IV pressors , ID consulted Per ID: - Continue vancomycin now for MRSA bacteremia. So far no clear source for MRSA bacteremia but suspected possible infected decubitus ulcer - treated with meropenem for 5 days to cover UTI as urine culture was not sent and he has h/o MDR GNRs - Anticipate discharge on Vancomycin 1 gm every 48 hours for total 6 weeks ending 11-12-18 - Again, this infection is incurable, patient's family has been advised hospice several times in the past but refused /MRSA bacteremia - possible source infected decubitus ulcer - cont vanc, ID following, 2d echo showed no vegetation /Decubitus ulcer, multiple with different stages - cont wound care, abx per ID - Could be the source for bacteremia, ID ordered for WBC scan but could not be done because of his chronic contracture/anatomical position /Anemia, s/p 2 units blood transfusion, likely AOCD and severe sepsis - stool for occult blood negative, cont to monitor / MÓNICA with vasomotor nephropathy renal function stable with IVF resuscitation therapy, monitor uop q shift, nephrology consulted in ED. /Right upper lobe Pneumonia, suspect aspiration Treated with IV antibiotic therapy, supplemental oxygen, pulse oximetry, / Elevated troponin Likely due to sepsis with low blood pressure and renal failure Monitor with Serial cardiac enzymes, Cardiology consulted in ED, No EKG changes, supportive care, / UTI (lower urinary tract infection) Treated with IV antibiotic therapy, IV fluids /Acute hypoxic Respiratory failure Likely due to underlying pneumonia Continue to provide Supplemental oxygen, nebulizer therapy, NIPPV as clinically indicated, pulse oximetry, /Moderate to severe protein calorie malnutrition - BMI 17.8, albumin 1.7 - consulted dietary, continue tube feeding for now hypernatremia, on hypotonic saline Hypokalemia/hyperkalemia - corrected -cont to monitor /Hypertension, placed on clonidine patch / DVT prophylaxis SCD to BLE while in bed, prophylactic heparin Disposition: Awaiting SNF placement Subjective Date of service: 10/19/18 Principal diagnosis: Septic shock; Ac encephalopathy; Multiple decubitus ulcers; Ac renal failur Interval history: Patient seen and examined, lying quietly in bed. Remains afebrile. No acute distress. Objective - Exam Narrative Exam: Constitutional: Well-nourished well-developed. In no distress Head: Normocephalic atraumatic Eyes: Pupils are equal round and reactive to light Nose: No enlarged turbinates, no septal deviation. Mouth: Moist mucous membranes. Neck: Supple no thyromegaly. No bruit. No JVD Heart: Regular rate and rhythm, S1-S2 normal. No rubs murmurs or gallop Lungs: Clear to auscultation bilaterally. no rales or rhonchi Abdomen: Soft, nontender. Bowel sound are present. Extremities: No edema, no cyanosis, no clubbing. Neuro: Alert oriented Oriented x1. Skin: No rashes or hyperpigmented spots Musculoskeletal system: No joint pain or swelling Hematological: No petechia or subcutanous hemorrhages. Immunological: No multiple septic spots on the skin Lymphatic: No generalized lymphadenopathy Psychiatry: Euthymic. Calm. - Constitutional Vitals: Vital Signs - 12hr 10/18/18 10/18/18 10/19/18 22:33 23:56 05:00 Temperature 99.2 F 98.6 F Pulse Rate 87 84 92 H Respiratory 18 18 Rate Blood Pressure 150/78 151/76 158/75 Blood Pressure [Left] O2 Sat by Pulse 99 97 Oximetry 10/19/18 08:57 Temperature 98.5 F Pulse Rate 95 H Respiratory 20 Rate Blood Pressure Blood Pressure 156/76 [Left] O2 Sat by Pulse 99 Oximetry - Labs CBC & Chem 7: 10/15/18 05:32 10/17/18 06:00 Labs: Abnormal lab results 10/18/18 10/18/18 10/18/18 Range/Units 12:54 17:54 23:38 POC Glucose 113 H 108 H 107 H (70-105) 10/19/18 Range/Units 06:13 POC Glucose 121 H (70-105)
[2018-10-19] MEDS: COREG PO SCH ×2 (11:58→22:49)
[2018-10-19] MEDS: THERAGRAN Tab PO SCH (11:58)
[2018-10-19] MEDS: ZINC SULFATE PO SCH (11:58)
[2018-10-19] MEDS: HCTZ PO SCH (11:59)
[2018-10-19] MEDS: VITAMIN C FEEDTUBE SCH ×2 (11:59→22:49)
[2018-10-19] MEDS: KEPPRA PO SCH ×2 (11:59→22:50)
[2018-10-19] MEDS: HEPARIN SUB-Q SCH ×2 (11:59→22:49)
[2018-10-19] MEDS: PEPCID PO SCH (11:59)
[2018-10-19] MEDS: SODIUM CHLORIDE FLUSH SYRINGE 10 ML IV SCH ×2 (12:00→22:50)
--- NOTE | 2018-10-19 14:18 | Progress Note ---
Assessment and Plan Severe Sepsis with septic shock GPC bacteremia Acute encephalopathy Multiple decubitus ulcers Acute metabolic encephaloapthy Hypernatremia (resolved) Recurrent CAUTI Lactic acidosis Acute renal failure- prerenal/vasomotor nephropathy - repeat CXR prn - continue to wean supplemental oxygen for O2 sats>90% - continue bronchodilators with pulmonary hygiene per RT - complete Vancomycin dosing for MRSA bacteremia (source presumably from infected decubitus ulcer) - continue aspiration precautions - continue GI & VTE prophylaxis - continue enteral nutrition at goal rate as tolerated - continue to monitor renal indices closely (MÓNICA resolved - continue mobility protocol as tolerated for pressure ulcer prophylaxis - wound care per WCT - continue accuchecks with glycemic control per SSI for target glucose of 140- 180 mg/dL - Influenza and pneumonia vaccination per protocol .... discharge planning ongoing concurrently ...re-evaluate in am & prn Subjective Date of service: 10/19/18 Principal diagnosis: Septic shock; Ac encephalopathy; Multiple decubitus ulcers; Ac renal failur Interval history: Patient is seen today for: Severe Sepsis with septic shock; GPC bacteremia; Acu te encephalopathy; Multiple decubitus ulcers; Acute metabolic encephaloapthy; Hypernatremia; Recurrent CAUTI; Lactic acidosis; Acute renal failure- prerenal/vasomotor nephropathy Seen and examined at bedside; 24hour events reviewed; nursing and respiratory care staff consulted; no adverse overnight events reported to me; resting peacefully in bed; denies acute chest pains; remains on supplemental oxygen; no emesis or overt aspiration and no seizures reported Objective Vital Signs - 12hr 10/19/18 10/19/18 10/19/18 05:00 08:57 12:05 Temperature 98.6 F 98.5 F 98.2 F Pulse Rate 92 H 95 H 89 Respiratory 18 20 20 Rate Blood Pressure 158/75 142/69 Blood Pressure 156/76 [Left] O2 Sat by Pulse 97 99 98 Oximetry Constitutional: no acute distress, asleep, other (elderly looking AAM, normocephalic but contrated and with mildly increased work of breathing at rest) Eyes: non-icteric ENT: oropharynx moist Neck: no lymphadenopathy, no JVD, other (neck stiff and deviated to the right s chilango) Effort: normal Ascultation: Bilateral: diminished breath sounds, rhonchi (scant in bases) Percussion: Bilateral: not dull Cardiovascular: regular rate and rhythm Gastrointestinal: normoactive bowel sounds, soft, non-tender, non-distended, other (PEG tube) Integumentary: rash Extremities: no cyanosis, no edema, pulses normal, no ischemia or petechiae Neurologic: pupils equal and round, other (tardive dyskinetic movts) Psychiatric: other (unable to assess) CBC and BMP: 10/15/18 05:32 10/17/18 06:00 ABG, PT/INR, D-dimer: ABG POC ABG pH 7.480 (7.35-7.45) H 10/01/18 18:12 POC ABG pO2 64 (80-105) L 10/01/18 18:12 POC ABG HCO3 21.0 (22-26 mml/L) 10/01/18 18:12 POC ABG Total CO2 22 (23-27mmol/L) 10/01/18 18:12 POC ABG O2 Sat 94 10/01/18 18:12 Abnormal lab findings: Abnormal Labs 10/01/18 10/01/18 10/01/18 14:29 14:29 15:13 WBC 18.5 H RBC 2.68 L Hgb 7.3 L Hct 23.1 L MCH 27 L MCHC 31 L RDW 19.3 H Plt Count 522 H Lymph % (Auto) 6.7 L Mccormick % (Auto) Eos % (Auto) Lymph # Mccormick # 1.2 H Eos # Seg Neutrophils % 85.0 H Seg Neuts % (Manual) Lymphocytes % (Manual) Seg Neutrophils # 15.7 H Seg Neutrophils # Man Lymphocytes # (Manual) POC ABG pH POC ABG pO2 Sodium 148 H Potassium 3.3 L Chloride Carbon Dioxide BUN 98 H Creatinine 2.0 H Glucose 142 H POC Glucose Lactic Acid Calcium Phosphorus Magnesium AST Alkaline Phosphatase Troponin T 0.361 H* C-Reactive Protein Albumin Cholesterol 36 L LDL Cholesterol Direct 6 L HDL Cholesterol 21 L Urine WBC (Auto) > 182.0 H Urine Creatinine Vancomycin Trough Crossmatch 10/01/18 10/01/18 10/01/18 15:15 15:15 17:03 WBC RBC Hgb Hct MCH MCHC RDW Plt Count Lymph % (Auto) Mccormick % (Auto) Eos % (Auto) Lymph # Mccormick # Eos # Seg Neutrophils % Seg Neuts % (Manual) Lymphocytes % (Manual) Seg Neutrophils # Seg Neutrophils # Man Lymphocytes # (Manual) POC ABG pH POC ABG pO2 Sodium 150 H Potassium Chloride Carbon Dioxide BUN 94 H Creatinine 2.1 H Glucose 132 H POC Glucose Lactic Acid 2.60 H* 2.20 H* Calcium 7.8 L Phosphorus Magnesium AST 47 H Alkaline Phosphatase 179 H Troponin T C-Reactive Protein Albumin 2.1 L Cholesterol LDL Cholesterol Direct HDL Cholesterol Urine WBC (Auto) Urine Creatinine Vancomycin Trough Crossmatch 10/01/18 10/01/18 10/01/18 18:12 18:23 18:23 WBC RBC Hgb Hct MCH MCHC RDW Plt Count Lymph % (Auto) Mccormick % (Auto) Eos % (Auto) Lymph # Mccormick # Eos # Seg Neutrophils % Seg Neuts % (Manual) Lymphocytes % (Manual) Seg Neutrophils # Seg Neutrophils # Man Lymphocytes # (Manual) POC ABG pH 7.480 H POC ABG pO2 64 L Sodium Potassium Chloride Carbon Dioxide BUN Creatinine Glucose POC Glucose Lactic Acid Calcium Phosphorus Magnesium 3.30 H AST Alkaline Phosphatase Troponin T 0.378 H* C-Reactive Protein Albumin Cholesterol LDL Cholesterol Direct HDL Cholesterol Urine WBC (Auto) Urine Creatinine Vancomycin Trough Crossmatch 10/01/18 10/01/18 10/01/18 18:48 21:20 23:48 WBC RBC Hgb Hct MCH MCHC RDW Plt Count Lymph % (Auto) Mccormick % (Auto) Eos % (Auto) Lymph # Mccormick # Eos # Seg Neutrophils % Seg Neuts % (Manual) Lymphocytes % (Manual) Seg Neutrophils # Seg Neutrophils # Man Lymphocytes # (Manual) POC ABG pH POC ABG pO2 Sodium Potassium Chloride Carbon Dioxide BUN Creatinine Glucose POC Glucose Lactic Acid 2.30 H* 2.70 H* Calcium Phosphorus Magnesium AST Alkaline Phosphatase Troponin T 0.336 H* C-Reactive Protein Albumin Cholesterol LDL Cholesterol Direct HDL Cholesterol Urine WBC (Auto) Urine Creatinine Vancomycin Trough Crossmatch 10/01/18 10/02/18 10/02/18 23:48 04:45 04:45 WBC 18.3 H RBC 2.40 L Hgb 6.4 L Hct 20.4 L MCH 27 L MCHC 31 L RDW 19.1 H Plt Count 462 H Lymph % (Auto) Mccormick % (Auto) Eos % (Auto) Lymph # Mccormick # Eos # Seg Neutrophils % Seg Neuts % (Manual) 78.0 H Lymphocytes % (Manual) 5.0 L Seg Neutrophils # Seg Neutrophils # Man 14.3 H Lymphocytes # (Manual) 0.9 L POC ABG pH POC ABG pO2 Sodium Potassium Chloride Carbon Dioxide BUN Creatinine Glucose POC Glucose Lactic Acid 2.50 H* Calcium Phosphorus Magnesium AST Alkaline Phosphatase Troponin T C-Reactive Protein Albumin Cholesterol LDL Cholesterol Direct HDL Cholesterol Urine WBC (Auto) Urine Creatinine 74.7 H Vancomycin Trough Crossmatch 10/02/18 10/02/18 10/02/18 04:45 04:45 04:45 WBC RBC Hgb Hct MCH MCHC RDW Plt Count Lymph % (Auto) Mccormick % (Auto) Eos % (Auto) Lymph # Mccormick # Eos # Seg Neutrophils % Seg Neuts % (Manual) Lymphocytes % (Manual) Seg Neutrophils # Seg Neutrophils # Man Lymphocytes # (Manual) POC ABG pH POC ABG pO2 Sodium 148 H Potassium 3.1 L Chloride 108.6 H Carbon Dioxide 21 L BUN 89 H Creatinine 1.8 H Glucose POC Glucose Lactic Acid 2.10 H* Calcium 8.3 L Phosphorus 5.00 H Magnesium AST Alkaline Phosphatase 161 H Troponin T C-Reactive Protein Albumin 1.7 L Cholesterol LDL Cholesterol Direct HDL Cholesterol Urine WBC (Auto) Urine Creatinine Vancomycin Trough Crossmatch 10/02/18 10/02/18 10/03/18 09:46 11:47 00:03 WBC RBC Hgb Hct MCH MCHC RDW Plt Count Lymph % (Auto) Mccormick % (Auto) Eos % (Auto) Lymph # Mccormick # Eos # Seg Neutrophils % Seg Neuts % (Manual) Lymphocytes % (Manual) Seg Neutrophils # Seg Neutrophils # Man Lymphocytes # (Manual) POC ABG pH POC ABG pO2 Sodium Potassium Chloride Carbon Dioxide BUN Creatinine Glucose POC Glucose 112 H 106 H Lactic Acid Calcium Phosphorus Magnesium AST Alkaline Phosphatase Troponin T C-Reactive Protein Albumin Cholesterol LDL Cholesterol Direct HDL Cholesterol Urine WBC (Auto) Urine Creatinine Vancomycin Trough Crossmatch See Detail 10/03/18 10/03/18 10/03/18 06:06 06:45 06:45 WBC 17.3 H RBC 2.81 L Hgb 7.6 L Hct 24.1 L MCH 27 L MCHC 31 L RDW 18.4 H Plt Count 473 H Lymph % (Auto) 5.2 L Mccormick % (Auto) Eos % (Auto) 4.6 H Lymph # 0.9 L Mccormick # Eos # 0.8 H Seg Neutrophils % 85.7 H Seg Neuts % (Manual) Lymphocytes % (Manual) Seg Neutrophils # 14.8 H Seg Neutrophils # Man Lymphocytes # (Manual) POC ABG pH POC ABG pO2 Sodium 148 H Potassium Chloride 112.1 H Carbon Dioxide 21 L BUN 79 H Creatinine 1.7 H Glucose 116 H POC Glucose 130 H Lactic Acid Calcium 7.9 L Phosphorus Magnesium AST Alkaline Phosphatase Troponin T C-Reactive Protein Albumin Cholesterol LDL Cholesterol Direct HDL Cholesterol Urine WBC (Auto) Urine Creatinine Vancomycin Trough Crossmatch 10/03/18 10/03/18 10/03/18 11:50 17:42 23:20 WBC RBC Hgb Hct MCH MCHC RDW Plt Count Lymph % (Auto) Mccormick % (Auto) Eos % (Auto) Lymph # Mccormick # Eos # Seg Neutrophils % Seg Neuts % (Manual) Lymphocytes % (Manual) Seg Neutrophils # Seg Neutrophils # Man Lymphocytes # (Manual) POC ABG pH POC ABG pO2 Sodium Potassium Chloride Carbon Dioxide BUN Creatinine Glucose POC Glucose 126 H 118 H 106 H Lactic Acid Calcium Phosphorus Magnesium AST Alkaline Phosphatase Troponin T C-Reactive Protein Albumin Cholesterol LDL Cholesterol Direct HDL Cholesterol Urine WBC (Auto) Urine Creatinine Vancomycin Trough Crossmatch 10/04/18 10/04/18 10/04/18 05:22 07:00 07:00 WBC 14.8 H RBC 2.38 L Hgb 6.4 L Hct 20.5 L MCH 27 L MCHC 31 L RDW 18.2 H Plt Count Lymph % (Auto) 5.3 L Mccormick % (Auto) Eos % (Auto) 9.5 H Lymph # 0.8 L Mccormick # Eos # 1.4 H Seg Neutrophils % 81.2 H Seg Neuts % (Manual) Lymphocytes % (Manual) Seg Neutrophils # 12.0 H Seg Neutrophils # Man Lymphocytes # (Manual) POC ABG pH POC ABG pO2 Sodium 148 H Potassium Chloride 112.0 H Carbon Dioxide BUN 73 H Creatinine Glucose 105 H POC Glucose 115 H Lactic Acid Calcium 8.1 L Phosphorus Magnesium AST Alkaline Phosphatase Troponin T C-Reactive Protein Albumin 1.5 L Cholesterol LDL Cholesterol Direct HDL Cholesterol Urine WBC (Auto) Urine Creatinine Vancomycin Trough Crossmatch 10/04/18 10/04/18 10/05/18 12:35 18:28 04:20 WBC 14.1 H RBC 2.94 L Hgb 8.2 L Hct 25.2 L MCH MCHC RDW 17.9 H Plt Count Lymph % (Auto) 6.6 L Mccormick % (Auto) Eos % (Auto) 6.4 H Lymph # 0.9 L Mccormick # Eos # 0.9 H Seg Neutrophils % 82.7 H Seg Neuts % (Manual) Lymphocytes % (Manual) Seg Neutrophils # 11.6 H Seg Neutrophils # Man Lymphocytes # (Manual) POC ABG pH POC ABG pO2 Sodium Potassium Chloride Carbon Dioxide BUN Creatinine Glucose POC Glucose 109 H 109 H Lactic Acid Calcium Phosphorus Magnesium AST Alkaline Phosphatase Troponin T C-Reactive Protein Albumin Cholesterol LDL Cholesterol Direct HDL Cholesterol Urine WBC (Auto) Urine Creatinine Vancomycin Trough Crossmatch 10/05/18 10/05/18 10/05/18 04:20 11:45 17:32 WBC RBC Hgb Hct MCH MCHC RDW Plt Count Lymph % (Auto) Mccormick % (Auto) Eos % (Auto) Lymph # Mccormick # Eos # Seg Neutrophils % Seg Neuts % (Manual) Lymphocytes % (Manual) Seg Neutrophils # Seg Neutrophils # Man Lymphocytes # (Manual) POC ABG pH POC ABG pO2 Sodium Potassium Chloride 110.0 H Carbon Dioxide 21 L BUN 64 H Creatinine Glucose POC Glucose 118 H 113 H Lactic Acid Calcium 8.3 L Phosphorus Magnesium AST Alkaline Phosphatase Troponin T C-Reactive Protein Albumin Cholesterol LDL Cholesterol Direct HDL Cholesterol Urine WBC (Auto) Urine Creatinine Vancomycin Trough Crossmatch 10/06/18 10/06/18 10/06/18 05:15 05:15 05:35 WBC 12.3 H RBC 2.77 L Hgb 7.6 L Hct 24.1 L MCH MCHC RDW 18.1 H Plt Count Lymph % (Auto) 4.9 L Mccormick % (Auto) Eos % (Auto) 7.3 H Lymph # 0.6 L Mccormick # Eos # 0.9 H Seg Neutrophils % 81.1 H Seg Neuts % (Manual) Lymphocytes % (Manual) Seg Neutrophils # 10.0 H Seg Neutrophils # Man Lymphocytes # (Manual) POC ABG pH POC ABG pO2 Sodium 146 H Potassium Chloride 112.1 H Carbon Dioxide BUN 57 H Creatinine Glucose 120 H POC Glucose 115 H Lactic Acid Calcium Phosphorus Magnesium AST Alkaline Phosphatase Troponin T C-Reactive Protein Albumin Cholesterol LDL Cholesterol Direct HDL Cholesterol Urine WBC (Auto) Urine Creatinine Vancomycin Trough Crossmatch 10/06/18 10/06/18 10/06/18 12:31 18:44 Unknown WBC RBC Hgb Hct MCH MCHC RDW Plt Count Lymph % (Auto) Mccormick % (Auto) Eos % (Auto) Lymph # Mccormick # Eos # Seg Neutrophils % Seg Neuts % (Manual) Lymphocytes % (Manual) Seg Neutrophils # Seg Neutrophils # Man Lymphocytes # (Manual) POC ABG pH POC ABG pO2 Sodium Potassium Chloride Carbon Dioxide BUN Creatinine Glucose POC Glucose 150 H 125 H Lactic Acid Calcium Phosphorus Magnesium AST Alkaline Phosphatase Troponin T C-Reactive Protein Albumin Cholesterol LDL Cholesterol Direct HDL Cholesterol Urine WBC (Auto) Urine Creatinine Vancomycin Trough 23.5 H Crossmatch 10/07/18 10/07/18 10/07/18 05:06 05:06 08:34 WBC RBC Hgb 8.2 L Hct 25.8 L MCH MCHC RDW Plt Count Lymph % (Auto) Mccormick % (Auto) Eos % (Auto) Lymph # Mccormick # Eos # Seg Neutrophils % Seg Neuts % (Manual) Lymphocytes % (Manual) Seg Neutrophils # Seg Neutrophils # Man Lymphocytes # (Manual) POC ABG pH POC ABG pO2 Sodium Potassium Chloride 112.2 H Carbon Dioxide 21 L BUN 43 H Creatinine Glucose POC Glucose Lactic Acid Calcium 8.3 L Phosphorus Magnesium AST Alkaline Phosphatase Troponin T C-Reactive Protein Albumin Cholesterol LDL Cholesterol Direct HDL Cholesterol Urine WBC (Auto) Urine Creatinine Vancomycin Trough 23.0 H Crossmatch 10/08/18 10/08/18 10/08/18 05:07 05:07 11:09 WBC RBC 2.86 L Hgb 8.0 L Hct 24.5 L MCH MCHC RDW 18.7 H Plt Count Lymph % (Auto) 7.8 L Mccormick % (Auto) 8.2 H Eos % (Auto) 5.9 H Lymph # 0.8 L Mccormick # 0.9 H Eos # 0.6 H Seg Neutrophils % 77.8 H Seg Neuts % (Manual) Lymphocytes % (Manual) Seg Neutrophils # 8.2 H Seg Neutrophils # Man Lymphocytes # (Manual) POC ABG pH POC ABG pO2 Sodium Potassium 5.1 H Chloride 111.8 H Carbon Dioxide BUN 37 H Creatinine Glucose 101 H POC Glucose Lactic Acid Calcium 8.3 L Phosphorus Magnesium 2.50 H AST Alkaline Phosphatase Troponin T C-Reactive Protein 11.40 H Albumin Cholesterol LDL Cholesterol Direct HDL Cholesterol Urine WBC (Auto) Urine Creatinine Vancomycin Trough Crossmatch 10/09/18 10/10/18 10/10/18 05:48 09:02 09:02 WBC 13.6 H RBC 2.80 L Hgb 7.5 L Hct 23.9 L MCH 27 L MCHC 31 L RDW 18.9 H Plt Count Lymph % (Auto) 5.7 L Mccormick % (Auto) 8.5 H Eos % (Auto) Lymph # 0.8 L Mccormick # 1.1 H Eos # Seg Neutrophils % 83.9 H Seg Neuts % (Manual) Lymphocytes % (Manual) Seg Neutrophils # 11.4 H Seg Neutrophils # Man Lymphocytes # (Manual) POC ABG pH POC ABG pO2 Sodium Potassium 5.2 H 5.6 H Chloride 112.9 H 111.7 H Carbon Dioxide 21 L BUN 34 H 32 H Creatinine 0.7 L Glucose 109 H POC Glucose Lactic Acid Calcium Phosphorus Magnesium AST Alkaline Phosphatase Troponin T C-Reactive Protein Albumin Cholesterol LDL Cholesterol Direct HDL Cholesterol Urine WBC (Auto) Urine Creatinine Vancomycin Trough Crossmatch 10/11/18 10/11/18 10/11/18 04:41 04:41 09:09 WBC 11.4 H RBC 2.52 L Hgb 6.9 L Hct 22.0 L MCH 27 L MCHC 31 L RDW 19.0 H Plt Count Lymph % (Auto) Mccormick % (Auto) Eos % (Auto) Lymph # Mccormick # Eos # Seg Neutrophils % Seg Neuts % (Manual) Lymphocytes % (Manual) Seg Neutrophils # Seg Neutrophils # Man Lymphocytes # (Manual) POC ABG pH POC ABG pO2 Sodium 146 H Potassium Chloride 113.0 H Carbon Dioxide BUN 30 H Creatinine Glucose POC Glucose Lactic Acid Calcium 8.2 L Phosphorus Magnesium AST Alkaline Phosphatase Troponin T C-Reactive Protein Albumin Cholesterol LDL Cholesterol Direct HDL Cholesterol Urine WBC (Auto) Urine Creatinine Vancomycin Trough Crossmatch See Detail 10/11/18 10/12/18 10/12/18 23:29 04:22 04:22 WBC RBC 2.98 L Hgb 8.3 L Hct 25.5 L MCH MCHC RDW 17.7 H Plt Count Lymph % (Auto) Mccormick % (Auto) Eos % (Auto) Lymph # Mccormick # Eos # Seg Neutrophils % Seg Neuts % (Manual) Lymphocytes % (Manual) Seg Neutrophils # Seg Neutrophils # Man Lymphocytes # (Manual) POC ABG pH POC ABG pO2 Sodium 146 H 146 H Potassium Chloride 110.6 H 112.8 H Carbon Dioxide BUN 30 H 29 H Creatinine Glucose 102 H POC Glucose Lactic Acid Calcium 8.2 L Phosphorus 4.60 H Magnesium AST Alkaline Phosphatase Troponin T C-Reactive Protein Albumin Cholesterol LDL Cholesterol Direct HDL Cholesterol Urine WBC (Auto) Urine Creatinine Vancomycin Trough Crossmatch 10/13/18 10/13/18 10/14/18 23:00 23:00 00:15 WBC RBC 2.95 L Hgb 8.6 L Hct 25.4 L MCH MCHC RDW 18.1 H Plt Count Lymph % (Auto) Mccormick % (Auto) Eos % (Auto) Lymph # Mccormick # Eos # Seg Neutrophils % Seg Neuts % (Manual) Lymphocytes % (Manual) Seg Neutrophils # Seg Neutrophils # Man Lymphocytes # (Manual) POC ABG pH POC ABG pO2 Sodium Potassium 5.4 H Chloride 111.4 H Carbon Dioxide BUN 30 H Creatinine Glucose 107 H POC Glucose 151 H Lactic Acid Calcium Phosphorus Magnesium AST Alkaline Phosphatase Troponin T C-Reactive Protein Albumin Cholesterol LDL Cholesterol Direct HDL Cholesterol Urine WBC (Auto) Urine Creatinine Vancomycin Trough Crossmatch 10/14/18 10/14/18 10/15/18 07:18 18:33 05:32 WBC RBC Hgb Hct MCH MCHC RDW Plt Count Lymph % (Auto) Mccormick % (Auto) Eos % (Auto) Lymph # Mccormick # Eos # Seg Neutrophils % Seg Neuts % (Manual) Lymphocytes % (Manual) Seg Neutrophils # Seg Neutrophils # Man Lymphocytes # (Manual) POC ABG pH POC ABG pO2 Sodium 146 H Potassium 5.3 H 3.5 L D Chloride 112.3 H 111.1 H Carbon Dioxide BUN 29 H 28 H Creatinine Glucose 106 H 103 H POC Glucose 124 H Lactic Acid Calcium Phosphorus Magnesium AST Alkaline Phosphatase Troponin T C-Reactive Protein Albumin Cholesterol LDL Cholesterol Direct HDL Cholesterol Urine WBC (Auto) Urine Creatinine Vancomycin Trough Crossmatch 10/15/18 10/15/18 10/16/18 05:32 11:59 00:02 WBC RBC 2.93 L Hgb 8.2 L Hct 25.4 L MCH MCHC RDW 17.5 H Plt Count Lymph % (Auto) Mccormick % (Auto) Eos % (Auto) Lymph # Mccormick # Eos # Seg Neutrophils % Seg Neuts % (Manual) Lymphocytes % (Manual) Seg Neutrophils # Seg Neutrophils # Man Lymphocytes # (Manual) POC ABG pH POC ABG pO2 Sodium Potassium Chloride Carbon Dioxide BUN Creatinine Glucose POC Glucose 110 H 107 H Lactic Acid Calcium Phosphorus Magnesium AST Alkaline Phosphatase Troponin T C-Reactive Protein Albumin Cholesterol LDL Cholesterol Direct HDL Cholesterol Urine WBC (Auto) Urine Creatinine Vancomycin Trough Crossmatch 10/16/18 10/16/18 10/17/18 05:02 23:27 06:00 WBC RBC Hgb Hct MCH MCHC RDW Plt Count Lymph % (Auto) Mccormick % (Auto) Eos % (Auto) Lymph # Mccormick # Eos # Seg Neutrophils % Seg Neuts % (Manual) Lymphocytes % (Manual) Seg Neutrophils # Seg Neutrophils # Man Lymphocytes # (Manual) POC ABG pH POC ABG pO2 Sodium Potassium 3.3 L Chloride 108.9 H 107.5 H Carbon Dioxide BUN 27 H 26 H Creatinine 0.7 L Glucose 118 H POC Glucose 113 H Lactic Acid Calcium Phosphorus Magnesium AST Alkaline Phosphatase Troponin T C-Reactive Protein Albumin Cholesterol LDL Cholesterol Direct HDL Cholesterol Urine WBC (Auto) Urine Creatinine Vancomycin Trough Crossmatch 10/17/18 10/17/18 10/18/18 11:50 16:36 00:50 WBC RBC Hgb Hct MCH MCHC RDW Plt Count Lymph % (Auto) Mccormick % (Auto) Eos % (Auto) Lymph # Mccormick # Eos # Seg Neutrophils % Seg Neuts % (Manual) Lymphocytes % (Manual) Seg Neutrophils # Seg Neutrophils # Man Lymphocytes # (Manual) POC ABG pH POC ABG pO2 Sodium Potassium Chloride Carbon Dioxide BUN Creatinine Glucose POC Glucose 108 H 106 H 111 H Lactic Acid Calcium Phosphorus Magnesium AST Alkaline Phosphatase Troponin T C-Reactive Protein Albumin Cholesterol LDL Cholesterol Direct HDL Cholesterol Urine WBC (Auto) Urine Creatinine Vancomycin Trough Crossmatch 10/18/18 10/18/18 10/18/18 06:26 12:54 17:54 WBC RBC Hgb Hct MCH MCHC RDW Plt Count Lymph % (Auto) Mccormick % (Auto) Eos % (Auto) Lymph # Mccormick # Eos # Seg Neutrophils % Seg Neuts % (Manual) Lymphocytes % (Manual) Seg Neutrophils # Seg Neutrophils # Man Lymphocytes # (Manual) POC ABG pH POC ABG pO2 Sodium Potassium Chloride Carbon Dioxide BUN Creatinine Glucose POC Glucose 112 H 113 H 108 H Lactic Acid Calcium Phosphorus Magnesium AST Alkaline Phosphatase Troponin T C-Reactive Protein Albumin Cholesterol LDL Cholesterol Direct HDL Cholesterol Urine WBC (Auto) Urine Creatinine Vancomycin Trough Crossmatch 10/18/18 10/19/18 23:38 06:13 WBC RBC Hgb Hct MCH MCHC RDW Plt Count Lymph % (Auto) Mccormick % (Auto) Eos % (Auto) Lymph # Mccormick # Eos # Seg Neutrophils % Seg Neuts % (Manual) Lymphocytes % (Manual) Seg Neutrophils # Seg Neutrophils # Man Lymphocytes # (Manual) POC ABG pH POC ABG pO2 Sodium Potassium Chloride Carbon Dioxide BUN Creatinine Glucose POC Glucose 107 H 121 H Lactic Acid Calcium Phosphorus Magnesium AST Alkaline Phosphatase Troponin T C-Reactive Protein Albumin Cholesterol LDL Cholesterol Direct HDL Cholesterol Urine WBC (Auto) Urine Creatinine Vancomycin Trough Crossmatch Allied health notes reviewed: nursing
[2018-10-20] MEDS: HumaLOG SUB-Q SCH ×4 (00:34→18:43)
[2018-10-20] MEDS ORDERED: CATHFLO IV ONE ×2 (11:09→11:14)
--- NOTE | 2018-10-20 11:12 | Progress Note ---
Assessment and Plan 67 YO Male who is a Residential Facility Resident at [facility] with h/o HTN, CVA, Obstructive Uropathy, Contracture, Decubitus Ulcers, [place], DM, OA, Seizure Disorder, COPD, Dementia, Debility, BPH presents to ED for evalua tion. for AMS. Pt seen and evaluated in ED and found to have Sepsis with shock secondary to UTI with concomitant RUL Pneumonia with a QSofa score of 8( GCS:3, MAP less than 70, Creatnine:2.1), Encephalopathy, and symptomatic anemia. Pt admitted to [facility] and initiated on Sepsis protocol. Prior admission on 07/29/18 reviewed. All listed mediction reconciled at time of admission. No further history could be obtainable. /Severe sepsis with shock, POA due to bacteremia, UTI and RUL PNA continue Sepsis Protocol: IV antibiotic therapy, IVF resuscitation therapy, MRSA on Blood cultures, s/p IV pressors , ID consulted Per ID: - Continue vancomycin now for MRSA bacteremia. So far no clear source for MRSA bacteremia but suspected possible infected decubitus ulcer - treated with meropenem for 5 days to cover UTI as urine culture was not sent and he has h/o MDR GNRs - Anticipate discharge on Vancomycin 1 gm every 48 hours for total 6 weeks ending 11-12-18 - Again, this infection is incurable, patient's family has been advised hospice several times in the past but refused /MRSA bacteremia - possible source infected decubitus ulcer - cont vanc, ID following, 2d echo showed no vegetation /Decubitus ulcer, multiple with different stages - cont wound care, abx per ID - Could be the source for bacteremia, ID ordered for WBC scan but could not be done because of his chronic contracture/anatomical position /Anemia, s/p 2 units blood transfusion, likely AOCD and severe sepsis - stool for occult blood negative, cont to monitor / MÓNICA with vasomotor nephropathy renal function stable with IVF resuscitation therapy, monitor uop q shift, nephrology consulted in ED. /Right upper lobe Pneumonia, suspect aspiration Treated with IV antibiotic therapy, supplemental oxygen, pulse oximetry, / Elevated troponin Likely due to sepsis with low blood pressure and renal failure Monitor with Serial cardiac enzymes, Cardiology consulted in ED, No EKG changes, supportive care, / UTI (lower urinary tract infection) Continue with IV antibiotic therapy, IV fluids /Acute hypoxic Respiratory failure Likely due to underlying pneumonia Continue to provide Supplemental oxygen, nebulizer therapy, NIPPV as clinically indicated, pulse oximetry, /Moderate to severe protein calorie malnutrition - BMI 17.8, albumin 1.7 - consulted dietary, continue tube feeding for now /Hypertension, placed on clonidine patch iv hydralazine / DVT prophylaxis SCD to BLE while in bed, prophylactic heparin Disposition: Awaiting SNF placement and contining iv Vanc Subjective Date of service: 10/20/18 Principal diagnosis: Septic shock; Ac encephalopathy; Multiple decubitus ulcers; Ac renal failur Interval history: Patient seen and examined, lying quietly in bed. Remains afebrile. No acute distress. Objective - Exam Narrative Exam: Constitutional: Ill looking. In no distress Head: Normocephalic atraumatic Eyes: Pupils are equal round and reactive to light Nose: No enlarged turbinates, no septal deviation. Mouth: Moist mucous membranes. Neck: Supple no thyromegaly. No bruit. No JVD Heart: Regular rate and rhythm, S1-S2 normal. No rubs murmurs or gallop Lungs: Clear to auscultation bilaterally. no rales or rhonchi Abdomen: Soft, nontender. Bowel sound are present. Extremities: No edema, no cyanosis, no clubbing. Neuro: Alert oriented x1. Skin: No rashes or hyperpigmented spots Musculoskeletal system: No joint pain or swelling Hematological: No petechia or subcutanous hemorrhages. Immunological: No multiple septic spots on the skin Lymphatic: No generalized lymphadenopathy Psychiatry: Euthymic. Calm. - Constitutional Vitals: Vital Signs - 12hr 10/20/18 10/20/18 10/20/18 00:18 04:40 08:57 Temperature 98.2 F 98.2 F 98.9 F Pulse Rate 82 82 95 H Respiratory 18 18 20 Rate Blood Pressure 131/67 143/76 158/75 O2 Sat by Pulse 99 96 93 Oximetry 10/20/18 09:03 Temperature Pulse Rate Respiratory Rate Blood Pressure O2 Sat by Pulse 98 Oximetry - Labs CBC & Chem 7: 10/15/18 05:32 10/17/18 06:00 Labs: Abnormal lab results 10/19/18 10/19/18 10/20/18 Range/Units 12:22 18:13 00:18 POC Glucose 120 H 106 H 113 H (70-105)
[2018-10-20] MEDS ORDERED: WATER FOR INJ Sterile (PF) 10 ML ONE (11:27)
[2018-10-20] MEDS: ZINC SULFATE PO SCH (11:36)
[2018-10-20] MEDS: VANCOMYCIN/NS 1 GM/250 ML 1 GM/250 ML BAG IV SCH (11:36)
[2018-10-20] MEDS: VITAMIN C FEEDTUBE SCH ×2 (11:37→22:58)
[2018-10-20] MEDS: COREG PO SCH ×2 (11:37→22:58)
[2018-10-20] MEDS: HCTZ PO SCH (11:37)
[2018-10-20] MEDS: KEPPRA PO SCH ×2 (11:37→22:58)
[2018-10-20] MEDS: THERAGRAN Tab PO SCH (11:37)
[2018-10-20] MEDS: PEPCID PO SCH (11:37)
[2018-10-20] MEDS: SODIUM CHLORIDE FLUSH SYRINGE 10 ML IV SCH ×2 (11:38→22:59)
[2018-10-20] MEDS: HEPARIN SUB-Q SCH ×2 (11:38→22:58)
--- NOTE | 2018-10-20 15:53 | Progress Note ---
Assessment and Plan Severe Sepsis with septic shock GPC bacteremia Acute encephalopathy Multiple decubitus ulcers Acute metabolic encephaloapthy Hypernatremia (resolved) Recurrent CAUTI Lactic acidosis Acute renal failure- prerenal/vasomotor nephropathy - repeat CXR prn - continue to wean supplemental oxygen for O2 sats>90% - continue bronchodilators with pulmonary hygiene per RT - complete Vancomycin dosing for MRSA bacteremia (source presumably from infected decubitus ulcer) - continue aspiration precautions - continue GI & VTE prophylaxis - continue enteral nutrition at goal rate as tolerated - continue to monitor renal indices closely (MÓNCIA resolved - continue mobility protocol as tolerated for pressure ulcer prophylaxis - wound care per WCT - continue accuchecks with glycemic control per SSI for target glucose of 140- 180 mg/dL - Influenza and pneumonia vaccination per protocol .... discharge planning ongoing concurrently ...re-evaluate in am & prn Subjective Date of service: 10/20/18 Principal diagnosis: Septic shock; Ac encephalopathy; Multiple decubitus ulcers; Ac renal failur Interval history: Patient is seen today for: Severe Sepsis with septic shock; GPC bacteremia; Acut e encephalopathy; Multiple decubitus ulcers; Acute metabolic encephaloapthy; Hypernatremia; Recurrent CAUTI; Lactic acidosis; Acute renal failure- prerenal/vasomotor nephropathy Seen and examined at bedside; 24hour events reviewed; nursing and respiratory care staff consulted; no adverse overnight events reported to me; resting peacefully in bed; Objective Vital Signs - 12hr 10/20/18 10/20/18 10/20/18 04:40 08:57 09:03 Temperature 98.2 F 98.9 F Pulse Rate 82 95 H Respiratory 18 20 Rate Blood Pressure 143/76 158/75 O2 Sat by Pulse 96 93 98 Oximetry 10/20/18 12:05 Temperature Pulse Rate 104 H Respiratory Rate Blood Pressure 160/90 O2 Sat by Pulse 99 Oximetry Constitutional: no acute distress, asleep, other (elderly looking AAM, no rmocephalic but contrated and with mildly increased work of breathing at rest) Eyes: non-icteric ENT: oropharynx moist Neck: no lymphadenopathy, no JVD, other (neck stiff and deviated to the right side) Effort: normal Ascultation: Bilateral: clear, diminished breath sounds, rhonchi (scant in bases) Percussion: Bilateral: not dull Cardiovascular: regular rate and rhythm Gastrointestinal: normoactive bowel sounds, soft, non-tender, non-distended, other (PEG tube) Integumentary: rash Extremities: no cyanosis, no edema, pulses normal, no ischemia or petechiae Neurologic: pupils equal and round, other (tardive dyskinetic movts) Psychiatric: other (unable to assess) CBC and BMP: 10/15/18 05:32 10/17/18 06:00 ABG, PT/INR, D-dimer: ABG POC ABG pH 7.480 (7.35-7.45) H 10/01/18 18:12 POC ABG pO2 64 (80-105) L 10/01/18 18:12 POC ABG HCO3 21.0 (22-26 mml/L) 10/01/18 18:12 POC ABG Total CO2 22 (23-27mmol/L) 10/01/18 18:12 POC ABG O2 Sat 94 10/01/18 18:12 Abnormal lab findings: Abnormal Labs 10/01/18 10/01/18 10/01/18 14:29 14:29 15:13 WBC 18.5 H RBC 2.68 L Hgb 7.3 L Hct 23.1 L MCH 27 L MCHC 31 L RDW 19.3 H Plt Count 522 H Lymph % (Auto) 6.7 L [place] % (Auto) Eos % (Auto) Lymph # [place] # 1.2 H Eos # Seg Neutrophils % 85.0 H Seg Neuts % (Manual) Lymphocytes % (Manual) Seg Neutrophils # 15.7 H Seg Neutrophils # Man Lymphocytes # (Manual) POC ABG pH POC ABG pO2 Sodium 148 H Potassium 3.3 L Chloride Carbon Dioxide BUN 98 H Creatinine 2.0 H Glucose 142 H POC Glucose Lactic Acid Calcium Phosphorus Magnesium AST Alkaline Phosphatase Troponin T 0.361 H* C-Reactive Protein Albumin Cholesterol 36 L LDL Cholesterol Direct 6 L HDL Cholesterol 21 L Urine WBC (Auto) > 182.0 H Urine Creatinine Vancomycin Trough Crossmatch 10/01/18 10/01/18 10/01/18 15:15 15:15 17:03 WBC RBC Hgb Hct MCH MCHC RDW Plt Count Lymph % (Auto) [place] % (Auto) Eos % (Auto) Lymph # [place] # Eos # Seg Neutrophils % Seg Neuts % (Manual) Lymphocytes % (Manual) Seg Neutrophils # Seg Neutrophils # Man Lymphocytes # (Manual) POC ABG pH POC ABG pO2 Sodium 150 H Potassium Chloride Carbon Dioxide BUN 94 H Creatinine 2.1 H Glucose 132 H POC Glucose Lactic Acid 2.60 H* 2.20 H* Calcium 7.8 L Phosphorus Magnesium AST 47 H Alkaline Phosphatase 179 H Troponin T C-Reactive Protein Albumin 2.1 L Cholesterol LDL Cholesterol Direct HDL Cholesterol Urine WBC (Auto) Urine Creatinine Vancomycin Trough Crossmatch 10/01/18 10/01/18 10/01/18 18:12 18:23 18:23 WBC RBC Hgb Hct MCH MCHC RDW Plt Count Lymph % (Auto) [place] % (Auto) Eos % (Auto) Lymph # [place] # Eos # Seg Neutrophils % Seg Neuts % (Manual) Lymphocytes % (Manual) Seg Neutrophils # Seg Neutrophils # Man Lymphocytes # (Manual) POC ABG pH 7.480 H POC ABG pO2 64 L Sodium Potassium Chloride Carbon Dioxide BUN Creatinine Glucose POC Glucose Lactic Acid Calcium Phosphorus Magnesium 3.30 H AST Alkaline Phosphatase Troponin T 0.378 H* C-Reactive Protein Albumin Cholesterol LDL Cholesterol Direct HDL Cholesterol Urine WBC (Auto) Urine Creatinine Vancomycin Trough Crossmatch 10/01/18 10/01/18 10/01/18 18:48 21:20 23:48 WBC RBC Hgb Hct MCH MCHC RDW Plt Count Lymph % (Auto) [place] % (Auto) Eos % (Auto) Lymph # [place] # Eos # Seg Neutrophils % Seg Neuts % (Manual) Lymphocytes % (Manual) Seg Neutrophils # Seg Neutrophils # Man Lymphocytes # (Manual) POC ABG pH POC ABG pO2 Sodium Potassium Chloride Carbon Dioxide BUN Creatinine Glucose POC Glucose Lactic Acid 2.30 H* 2.70 H* Calcium Phosphorus Magnesium AST Alkaline Phosphatase Troponin T 0.336 H* C-Reactive Protein Albumin Cholesterol LDL Cholesterol Direct HDL Cholesterol Urine WBC (Auto) Urine Creatinine Vancomycin Trough Crossmatch 10/01/18 10/02/18 10/02/18 23:48 04:45 04:45 WBC 18.3 H RBC 2.40 L Hgb 6.4 L Hct 20.4 L MCH 27 L MCHC 31 L RDW 19.1 H Plt Count 462 H Lymph % (Auto) [place] % (Auto) Eos % (Auto) Lymph # [place] # Eos # Seg Neutrophils % Seg Neuts % (Manual) 78.0 H Lymphocytes % (Manual) 5.0 L Seg Neutrophils # Seg Neutrophils # Man 14.3 H Lymphocytes # (Manual) 0.9 L POC ABG pH POC ABG pO2 Sodium Potassium Chloride Carbon Dioxide BUN Creatinine Glucose POC Glucose Lactic Acid 2.50 H* Calcium Phosphorus Magnesium AST Alkaline Phosphatase Troponin T C-Reactive Protein Albumin Cholesterol LDL Cholesterol Direct HDL Cholesterol Urine WBC (Auto) Urine Creatinine 74.7 H Vancomycin Trough Crossmatch 10/02/18 10/02/18 10/02/18 04:45 04:45 04:45 WBC RBC Hgb Hct MCH MCHC RDW Plt Count Lymph % (Auto) [place] % (Auto) Eos % (Auto) Lymph # [place] # Eos # Seg Neutrophils % Seg Neuts % (Manual) Lymphocytes % (Manual) Seg Neutrophils # Seg Neutrophils # Man Lymphocytes # (Manual) POC ABG pH POC ABG pO2 Sodium 148 H Potassium 3.1 L Chloride 108.6 H Carbon Dioxide 21 L BUN 89 H Creatinine 1.8 H Glucose POC Glucose Lactic Acid 2.10 H* Calcium 8.3 L Phosphorus 5.00 H Magnesium AST Alkaline Phosphatase 161 H Troponin T C-Reactive Protein Albumin 1.7 L Cholesterol LDL Cholesterol Direct HDL Cholesterol Urine WBC (Auto) Urine Creatinine Vancomycin Trough Crossmatch 10/02/18 10/02/18 10/03/18 09:46 11:47 00:03 WBC RBC Hgb Hct MCH MCHC RDW Plt Count Lymph % (Auto) [place] % (Auto) Eos % (Auto) Lymph # [place] # Eos # Seg Neutrophils % Seg Neuts % (Manual) Lymphocytes % (Manual) Seg Neutrophils # Seg Neutrophils # Man Lymphocytes # (Manual) POC ABG pH POC ABG pO2 Sodium Potassium Chloride Carbon Dioxide BUN Creatinine Glucose POC Glucose 112 H 106 H Lactic Acid Calcium Phosphorus Magnesium AST Alkaline Phosphatase Troponin T C-Reactive Protein Albumin Cholesterol LDL Cholesterol Direct HDL Cholesterol Urine WBC (Auto) Urine Creatinine Vancomycin Trough Crossmatch See Detail 10/03/18 10/03/18 10/03/18 06:06 06:45 06:45 WBC 17.3 H RBC 2.81 L Hgb 7.6 L Hct 24.1 L MCH 27 L MCHC 31 L RDW 18.4 H Plt Count 473 H Lymph % (Auto) 5.2 L [place] % (Auto) Eos % (Auto) 4.6 H Lymph # 0.9 L [place] # Eos # 0.8 H Seg Neutrophils % 85.7 H Seg Neuts % (Manual) Lymphocytes % (Manual) Seg Neutrophils # 14.8 H Seg Neutrophils # Man Lymphocytes # (Manual) POC ABG pH POC ABG pO2 Sodium 148 H Potassium Chloride 112.1 H Carbon Dioxide 21 L BUN 79 H Creatinine 1.7 H Glucose 116 H POC Glucose 130 H Lactic Acid Calcium 7.9 L Phosphorus Magnesium AST Alkaline Phosphatase Troponin T C-Reactive Protein Albumin Cholesterol LDL Cholesterol Direct HDL Cholesterol Urine WBC (Auto) Urine Creatinine Vancomycin Trough Crossmatch 10/03/18 10/03/18 10/03/18 11:50 17:42 23:20 WBC RBC Hgb Hct MCH MCHC RDW Plt Count Lymph % (Auto) [place] % (Auto) Eos % (Auto) Lymph # [place] # Eos # Seg Neutrophils % Seg Neuts % (Manual) Lymphocytes % (Manual) Seg Neutrophils # Seg Neutrophils # Man Lymphocytes # (Manual) POC ABG pH POC ABG pO2 Sodium Potassium Chloride Carbon Dioxide BUN Creatinine Glucose POC Glucose 126 H 118 H 106 H Lactic Acid Calcium Phosphorus Magnesium AST Alkaline Phosphatase Troponin T C-Reactive Protein Albumin Cholesterol LDL Cholesterol Direct HDL Cholesterol Urine WBC (Auto) Urine Creatinine Vancomycin Trough Crossmatch 10/04/18 10/04/18 10/04/18 05:22 07:00 07:00 WBC 14.8 H RBC 2.38 L Hgb 6.4 L Hct 20.5 L MCH 27 L MCHC 31 L RDW 18.2 H Plt Count Lymph % (Auto) 5.3 L [place] % (Auto) Eos % (Auto) 9.5 H Lymph # 0.8 L [place] # Eos # 1.4 H Seg Neutrophils % 81.2 H Seg Neuts % (Manual) Lymphocytes % (Manual) Seg Neutrophils # 12.0 H Seg Neutrophils # Man Lymphocytes # (Manual) POC ABG pH POC ABG pO2 Sodium 148 H Potassium Chloride 112.0 H Carbon Dioxide BUN 73 H Creatinine Glucose 105 H POC Glucose 115 H Lactic Acid Calcium 8.1 L Phosphorus Magnesium AST Alkaline Phosphatase Troponin T C-Reactive Protein Albumin 1.5 L Cholesterol LDL Cholesterol Direct HDL Cholesterol Urine WBC (Auto) Urine Creatinine Vancomycin Trough Crossmatch 10/04/18 10/04/18 10/05/18 12:35 18:28 04:20 WBC 14.1 H RBC 2.94 L Hgb 8.2 L Hct 25.2 L MCH MCHC RDW 17.9 H Plt Count Lymph % (Auto) 6.6 L [place] % (Auto) Eos % (Auto) 6.4 H Lymph # 0.9 L [place] # Eos # 0.9 H Seg Neutrophils % 82.7 H Seg Neuts % (Manual) Lymphocytes % (Manual) Seg Neutrophils # 11.6 H Seg Neutrophils # Man Lymphocytes # (Manual) POC ABG pH POC ABG pO2 Sodium Potassium Chloride Carbon Dioxide BUN Creatinine Glucose POC Glucose 109 H 109 H Lactic Acid Calcium Phosphorus Magnesium AST Alkaline Phosphatase Troponin T C-Reactive Protein Albumin Cholesterol LDL Cholesterol Direct HDL Cholesterol Urine WBC (Auto) Urine Creatinine Vancomycin Trough Crossmatch 10/05/18 10/05/18 10/05/18 04:20 11:45 17:32 WBC RBC Hgb Hct MCH MCHC RDW Plt Count Lymph % (Auto) [place] % (Auto) Eos % (Auto) Lymph # [place] # Eos # Seg Neutrophils % Seg Neuts % (Manual) Lymphocytes % (Manual) Seg Neutrophils # Seg Neutrophils # Man Lymphocytes # (Manual) POC ABG pH POC ABG pO2 Sodium Potassium Chloride 110.0 H Carbon Dioxide 21 L BUN 64 H Creatinine Glucose POC Glucose 118 H 113 H Lactic Acid Calcium 8.3 L Phosphorus Magnesium AST Alkaline Phosphatase Troponin T C-Reactive Protein Albumin Cholesterol LDL Cholesterol Direct HDL Cholesterol Urine WBC (Auto) Urine Creatinine Vancomycin Trough Crossmatch 10/06/18 10/06/18 10/06/18 05:15 05:15 05:35 WBC 12.3 H RBC 2.77 L Hgb 7.6 L Hct 24.1 L MCH MCHC RDW 18.1 H Plt Count Lymph % (Auto) 4.9 L [place] % (Auto) Eos % (Auto) 7.3 H Lymph # 0.6 L [place] # Eos # 0.9 H Seg Neutrophils % 81.1 H Seg Neuts % (Manual) Lymphocytes % (Manual) Seg Neutrophils # 10.0 H Seg Neutrophils # Man Lymphocytes # (Manual) POC ABG pH POC ABG pO2 Sodium 146 H Potassium Chloride 112.1 H Carbon Dioxide BUN 57 H Creatinine Glucose 120 H POC Glucose 115 H Lactic Acid Calcium Phosphorus Magnesium AST Alkaline Phosphatase Troponin T C-Reactive Protein Albumin Cholesterol LDL Cholesterol Direct HDL Cholesterol Urine WBC (Auto) Urine Creatinine Vancomycin Trough Crossmatch 10/06/18 10/06/18 10/06/18 12:31 18:44 Unknown WBC RBC Hgb Hct MCH MCHC RDW Plt Count Lymph % (Auto) [place] % (Auto) Eos % (Auto) Lymph # [place] # Eos # Seg Neutrophils % Seg Neuts % (Manual) Lymphocytes % (Manual) Seg Neutrophils # Seg Neutrophils # Man Lymphocytes # (Manual) POC ABG pH POC ABG pO2 Sodium Potassium Chloride Carbon Dioxide BUN Creatinine Glucose POC Glucose 150 H 125 H Lactic Acid Calcium Phosphorus Magnesium AST Alkaline Phosphatase Troponin T C-Reactive Protein Albumin Cholesterol LDL Cholesterol Direct HDL Cholesterol Urine WBC (Auto) Urine Creatinine Vancomycin Trough 23.5 H Crossmatch 10/07/18 10/07/18 10/07/18 05:06 05:06 08:34 WBC RBC Hgb 8.2 L Hct 25.8 L MCH MCHC RDW Plt Count Lymph % (Auto) [place] % (Auto) Eos % (Auto) Lymph # [place] # Eos # Seg Neutrophils % Seg Neuts % (Manual) Lymphocytes % (Manual) Seg Neutrophils # Seg Neutrophils # Man Lymphocytes # (Manual) POC ABG pH POC ABG pO2 Sodium Potassium Chloride 112.2 H Carbon Dioxide 21 L BUN 43 H Creatinine Glucose POC Glucose Lactic Acid Calcium 8.3 L Phosphorus Magnesium AST Alkaline Phosphatase Troponin T C-Reactive Protein Albumin Cholesterol LDL Cholesterol Direct HDL Cholesterol Urine WBC (Auto) Urine Creatinine Vancomycin Trough 23.0 H Crossmatch 10/08/18 10/08/18 10/08/18 05:07 05:07 11:09 WBC RBC 2.86 L Hgb 8.0 L Hct 24.5 L MCH MCHC RDW 18.7 H Plt Count Lymph % (Auto) 7.8 L [place] % (Auto) 8.2 H Eos % (Auto) 5.9 H Lymph # 0.8 L [place] # 0.9 H Eos # 0.6 H Seg Neutrophils % 77.8 H Seg Neuts % (Manual) Lymphocytes % (Manual) Seg Neutrophils # 8.2 H Seg Neutrophils # Man Lymphocytes # (Manual) POC ABG pH POC ABG pO2 Sodium Potassium 5.1 H Chloride 111.8 H Carbon Dioxide BUN 37 H Creatinine Glucose 101 H POC Glucose Lactic Acid Calcium 8.3 L Phosphorus Magnesium 2.50 H AST Alkaline Phosphatase Troponin T C-Reactive Protein 11.40 H Albumin Cholesterol LDL Cholesterol Direct HDL Cholesterol Urine WBC (Auto) Urine Creatinine Vancomycin Trough Crossmatch 10/09/18 10/10/18 10/10/18 05:48 09:02 09:02 WBC 13.6 H RBC 2.80 L Hgb 7.5 L Hct 23.9 L MCH 27 L MCHC 31 L RDW 18.9 H Plt Count Lymph % (Auto) 5.7 L [place] % (Auto) 8.5 H Eos % (Auto) Lymph # 0.8 L [place] # 1.1 H Eos # Seg Neutrophils % 83.9 H Seg Neuts % (Manual) Lymphocytes % (Manual) Seg Neutrophils # 11.4 H Seg Neutrophils # Man Lymphocytes # (Manual) POC ABG pH POC ABG pO2 Sodium Potassium 5.2 H 5.6 H Chloride 112.9 H 111.7 H Carbon Dioxide 21 L BUN 34 H 32 H Creatinine 0.7 L Glucose 109 H POC Glucose Lactic Acid Calcium Phosphorus Magnesium AST Alkaline Phosphatase Troponin T C-Reactive Protein Albumin Cholesterol LDL Cholesterol Direct HDL Cholesterol Urine WBC (Auto) Urine Creatinine Vancomycin Trough Crossmatch 10/11/18 10/11/18 10/11/18 04:41 04:41 09:09 WBC 11.4 H RBC 2.52 L Hgb 6.9 L Hct 22.0 L MCH 27 L MCHC 31 L RDW 19.0 H Plt Count Lymph % (Auto) [place] % (Auto) Eos % (Auto) Lymph # [place] # Eos # Seg Neutrophils % Seg Neuts % (Manual) Lymphocytes % (Manual) Seg Neutrophils # Seg Neutrophils # Man Lymphocytes # (Manual) POC ABG pH POC ABG pO2 Sodium 146 H Potassium Chloride 113.0 H Carbon Dioxide BUN 30 H Creatinine Glucose POC Glucose Lactic Acid Calcium 8.2 L Phosphorus Magnesium AST Alkaline Phosphatase Troponin T C-Reactive Protein Albumin Cholesterol LDL Cholesterol Direct HDL Cholesterol Urine WBC (Auto) Urine Creatinine Vancomycin Trough Crossmatch See Detail 10/11/18 10/12/18 10/12/18 23:29 04:22 04:22 WBC RBC 2.98 L Hgb 8.3 L Hct 25.5 L MCH MCHC RDW 17.7 H Plt Count Lymph % (Auto) [place] % (Auto) Eos % (Auto) Lymph # [place] # Eos # Seg Neutrophils % Seg Neuts % (Manual) Lymphocytes % (Manual) Seg Neutrophils # Seg Neutrophils # Man Lymphocytes # (Manual) POC ABG pH POC ABG pO2 Sodium 146 H 146 H Potassium Chloride 110.6 H 112.8 H Carbon Dioxide BUN 30 H 29 H Creatinine Glucose 102 H POC Glucose Lactic Acid Calcium 8.2 L Phosphorus 4.60 H Magnesium AST Alkaline Phosphatase Troponin T C-Reactive Protein Albumin Cholesterol LDL Cholesterol Direct HDL Cholesterol Urine WBC (Auto) Urine Creatinine Vancomycin Trough Crossmatch 10/13/18 10/13/18 10/14/18 23:00 23:00 00:15 WBC RBC 2.95 L Hgb 8.6 L Hct 25.4 L MCH MCHC RDW 18.1 H Plt Count Lymph % (Auto) [place] % (Auto) Eos % (Auto) Lymph # [place] # Eos # Seg Neutrophils % Seg Neuts % (Manual) Lymphocytes % (Manual) Seg Neutrophils # Seg Neutrophils # Man Lymphocytes # (Manual) POC ABG pH POC ABG pO2 Sodium Potassium 5.4 H Chloride 111.4 H Carbon Dioxide BUN 30 H Creatinine Glucose 107 H POC Glucose 151 H Lactic Acid Calcium Phosphorus Magnesium AST Alkaline Phosphatase Troponin T C-Reactive Protein Albumin Cholesterol LDL Cholesterol Direct HDL Cholesterol Urine WBC (Auto) Urine Creatinine Vancomycin Trough Crossmatch 10/14/18 10/14/18 10/15/18 07:18 18:33 05:32 WBC RBC Hgb Hct MCH MCHC RDW Plt Count Lymph % (Auto) [place] % (Auto) Eos % (Auto) Lymph # [place] # Eos # Seg Neutrophils % Seg Neuts % (Manual) Lymphocytes % (Manual) Seg Neutrophils # Seg Neutrophils # Man Lymphocytes # (Manual) POC ABG pH POC ABG pO2 Sodium 146 H Potassium 5.3 H 3.5 L D Chloride 112.3 H 111.1 H Carbon Dioxide BUN 29 H 28 H Creatinine Glucose 106 H 103 H POC Glucose 124 H Lactic Acid Calcium Phosphorus Magnesium AST Alkaline Phosphatase Troponin T C-Reactive Protein Albumin Cholesterol LDL Cholesterol Direct HDL Cholesterol Urine WBC (Auto) Urine Creatinine Vancomycin Trough Crossmatch 10/15/18 10/15/18 10/16/18 05:32 11:59 00:02 WBC RBC 2.93 L Hgb 8.2 L Hct 25.4 L MCH MCHC RDW 17.5 H Plt Count Lymph % (Auto) [place] % (Auto) Eos % (Auto) Lymph # [place] # Eos # Seg Neutrophils % Seg Neuts % (Manual) Lymphocytes % (Manual) Seg Neutrophils # Seg Neutrophils # Man Lymphocytes # (Manual) POC ABG pH POC ABG pO2 Sodium Potassium Chloride Carbon Dioxide BUN Creatinine Glucose POC Glucose 110 H 107 H Lactic Acid Calcium Phosphorus Magnesium AST Alkaline Phosphatase Troponin T C-Reactive Protein Albumin Cholesterol LDL Cholesterol Direct HDL Cholesterol Urine WBC (Auto) Urine Creatinine Vancomycin Trough Crossmatch 10/16/18 10/16/18 10/17/18 05:02 23:27 06:00 WBC RBC Hgb Hct MCH MCHC RDW Plt Count Lymph % (Auto) [place] % (Auto) Eos % (Auto) Lymph # [place] # Eos # Seg Neutrophils % Seg Neuts % (Manual) Lymphocytes % (Manual) Seg Neutrophils # Seg Neutrophils # Man Lymphocytes # (Manual) POC ABG pH POC ABG pO2 Sodium Potassium 3.3 L Chloride 108.9 H 107.5 H Carbon Dioxide BUN 27 H 26 H Creatinine 0.7 L Glucose 118 H POC Glucose 113 H Lactic Acid Calcium Phosphorus Magnesium AST Alkaline Phosphatase Troponin T C-Reactive Protein Albumin Cholesterol LDL Cholesterol Direct HDL Cholesterol Urine WBC (Auto) Urine Creatinine Vancomycin Trough Crossmatch 10/17/18 10/17/18 10/18/18 11:50 16:36 00:50 WBC RBC Hgb Hct MCH MCHC RDW Plt Count Lymph % (Auto) [place] % (Auto) Eos % (Auto) Lymph # [place] # Eos # Seg Neutrophils % Seg Neuts % (Manual) Lymphocytes % (Manual) Seg Neutrophils # Seg Neutrophils # Man Lymphocytes # (Manual) POC ABG pH POC ABG pO2 Sodium Potassium Chloride Carbon Dioxide BUN Creatinine Glucose POC Glucose 108 H 106 H 111 H Lactic Acid Calcium Phosphorus Magnesium AST Alkaline Phosphatase Troponin T C-Reactive Protein Albumin Cholesterol LDL Cholesterol Direct HDL Cholesterol Urine WBC (Auto) Urine Creatinine Vancomycin Trough Crossmatch 10/18/18 10/18/18 10/18/18 06:26 12:54 17:54 WBC RBC Hgb Hct MCH MCHC RDW Plt Count Lymph % (Auto) [place] % (Auto) Eos % (Auto) Lymph # [place] # Eos # Seg Neutrophils % Seg Neuts % (Manual) Lymphocytes % (Manual) Seg Neutrophils # Seg Neutrophils # Man Lymphocytes # (Manual) POC ABG pH POC ABG pO2 Sodium Potassium Chloride Carbon Dioxide BUN Creatinine Glucose POC Glucose 112 H 113 H 108 H Lactic Acid Calcium Phosphorus Magnesium AST Alkaline Phosphatase Troponin T C-Reactive Protein Albumin Cholesterol LDL Cholesterol Direct HDL Cholesterol Urine WBC (Auto) Urine Creatinine Vancomycin Trough Crossmatch 10/18/18 10/19/18 10/19/18 23:38 06:13 12:22 WBC RBC Hgb Hct MCH MCHC RDW Plt Count Lymph % (Auto) [place] % (Auto) Eos % (Auto) Lymph # [place] # Eos # Seg Neutrophils % Seg Neuts % (Manual) Lymphocytes % (Manual) Seg Neutrophils # Seg Neutrophils # Man Lymphocytes # (Manual) POC ABG pH POC ABG pO2 Sodium Potassium Chloride Carbon Dioxide BUN Creatinine Glucose POC Glucose 107 H 121 H 120 H Lactic Acid Calcium Phosphorus Magnesium AST Alkaline Phosphatase Troponin T C-Reactive Protein Albumin Cholesterol LDL Cholesterol Direct HDL Cholesterol Urine WBC (Auto) Urine Creatinine Vancomycin Trough Crossmatch 10/19/18 10/20/18 10/20/18 18:13 00:18 12:12 WBC RBC Hgb Hct MCH MCHC RDW Plt Count Lymph % (Auto) [place] % (Auto) Eos % (Auto) Lymph # [place] # Eos # Seg Neutrophils % Seg Neuts % (Manual) Lymphocytes % (Manual) Seg Neutrophils # Seg Neutrophils # Man Lymphocytes # (Manual) POC ABG pH POC ABG pO2 Sodium Potassium Chloride Carbon Dioxide BUN Creatinine Glucose POC Glucose 106 H 113 H 120 H Lactic Acid Calcium Phosphorus Magnesium AST Alkaline Phosphatase Troponin T C-Reactive Protein Albumin Cholesterol LDL Cholesterol Direct HDL Cholesterol Urine WBC (Auto) Urine Creatinine Vancomycin Trough Crossmatch Allied health notes reviewed: nursing
[2018-10-21 05:21] LABS: Basophils # (Auto) 0.1 K/mm3 (0.0-0.1); Basophils % (Auto) 0.6 % (0.0-1.8); Eosinophils # (Auto) 0.4 K/mm3 (0.0-0.4); Eosinophils % (Auto) 3.4 % (0.0-4.3); Hematocrit 25.4 % (35.5-45.6); Hemoglobin 8.3 gm/dl (11.8-15.2); Lymphocytes % (Auto) 9.7 % (13.4-35.0); Mean Corpuscular HGB Conc 33 % (32-34); Mean Corpuscular Volume 86 fl (84-94); Monocytes # (Auto) 1.7 K/mm3 (0.0-0.8); Platelet Count 586 K/mm3 (140-440); Red Blood Count 2.97 M/mm3 (3.65-5.03); Red Cell Distribution Width 17.6 % (13.2-15.2)
[2018-10-21 05:42] LABS: Alanine Aminotransferase 10 units/L (7-56); Albumin 1.6 g/dL (3.9-5); BUN/Creatinine Ratio 31; Blood Urea Nitrogen 25 mg/dL (9-20); Hemolysis Index 2
[2018-10-21] MEDS: HumaLOG SUB-Q SCH ×4 (06:51→18:12)
[2018-10-21] MEDS: HEPARIN SUB-Q SCH ×2 (10:00→21:05)
--- NOTE | 2018-10-21 10:14 | Progress Note ---
Assessment and Plan Cultures: Blood culture 10/01/2018 MRSA 2 of 4. Blood culture 10/03/2018 no growth Blood culture 10/08/2018 no growth Blood culture 10/11/2018 no growth Assessment: 67 y/o male with hsitory of HTN, CVA, Obstructive Uropathy, Contracture, Multiple Decubitus Ulcers, WI, DM, OA, Seizure Disorder, COPD, Dementia, Debility, BPH, well known to ID due to multiple admissions from ducubitus ulcers infections, resident of [facility], admitted on due to decreased responsiveness compared to baseline and hypotension SBP in 60's: 1) Severe Sepsis with septic shock: Noted fever spike of 101.3. Etiology most likely MRSA bacteremia and colonization with multiple MDROs. 2) MRSA bacteremia: source likely multiple decubitus ulcers. Blood culture 10/01/2018 GPC in clusters 2 of 4. TTE no negative. - WBC tagged scan ordered - Unable to perform because of contractions. Best to treat for a 6 week duration. 3) Recent septic shock due to polymicrobial bacteremia ESBL and carbapenem resistant E coli, MDR Proteus, Strep and E faecalis on 07/29/2018 probably from multiple infected decubitus ulcers and less likely UTI. Repeat blood cultures 07/31/2018 showed same MDR E coli 1 of 4 bottles then 08/06/2018 blood cultures showed no growth. Patient was treated with Vabomere for 14 days. 4) Multiple infected decubitus ulcers: currently active large left trochanteric with bone exposure and sacral with bone exposure. His prognosis has been poor and hospice has been recommended several times in the past but family has declined. declined. His wounds are not curable considering his contractures, bed bound status and poor nutritional status. There was also suspicion of septic arthritis of left hip from decubitus ulcer. 5) Recurrent CAUTI 6) Acute encephalopathy: resolved. 7) MÓNICA: resolved with high K. 8) New Fever: Likely related to multiple skin wounds. Repeat blood cultures and UA ordered Recommendations: - Continue wound care - Continue IV vancomycin D19 for MRSA bacteremia, target trough 10-20 mcg/ml - Anticipate discharge on Vancomycin 1 gm every 48 hours for total 6 weeks ending 11-12-18 - Again, this infection is incurable, patient's family has been advised hospice several times in the past but refused - continue contact isolation, patient colonized with multiple MDROs - orders for IV abx already placed - repeat blood cultures, U/A and urine culture ordered [facility] M: [id number] O:[phone] Subjective Date of service: 10/21/18 Principal diagnosis: Septic shock; Ac encephalopathy; Multiple decubitus ulcers; Ac renal failur Interval history: Patient seen and examined. No generalized pain reported. +fevers. Objective - Exam Narrative Exam: General appearance: Alert, in no distress. Eyes: anicteric sclerae, moist conjunctivae; PERRLA HENT: Atraumatic; oropharynx limited Neck: Trachea midline; supple Lungs: scattered rhonchi CV: S1, S2 heard, no murmur GI: Soft, non-tender; bowel sounds + PEG in place Extremities: altaf contracted legs, multiple wounds covered with dressings. Skin: multiple skin tears. large left greater trochanter wound, sacral decubitus + Psych: no agitated Neuro: alert, awake, not agitated - Constitutional Vitals: Vital Signs Temp Pulse Resp BP Pulse Ox 98.4 F 78 18 156/74 99 10/21/18 09:34 10/21/18 09:34 10/21/18 09:34 10/21/18 09:34 10/21/18 09:34 Temperature -Last 24 Hours Temperature 98.4 F Temperature 98.3 F Temperature 101.3 F Temperature 101.4 F - Labs CBC & Chem 7: 10/21/18 04:50 10/21/18 04:50 Labs: Abnormal lab results 10/20/18 10/21/18 10/21/18 Range/Units 12:12 00:26 04:50 RBC 2.97 L (3.65-5.03) M/mm3 Hgb 8.3 L (11.8-15.2) gm/dl Hct 25.4 L (35.5-45.6) % RDW 17.6 H (13.2-15.2) % Plt Count 586 H (140-440) K/mm3 Lymph % (Auto) 9.7 L (13.4-35.0) % [place] % (Auto) 16.0 H (0.0-7.3) % Lymph # 1.0 L (1.2-5.4) K/mm3 [place] # 1.7 H (0.0-0.8) K/mm3 Seg Neutrophils % 70.3 H (40.0-70.0) % Potassium (3.6-5.0) mmol/L BUN (9-20) mg/dL Glucose (75-100) mg/dL POC Glucose 120 H 113 H (70-105) Alkaline Phosphatase (35-129) units/L Albumin (3.9-5) g/dL 10/21/18 10/21/18 Range/Units 04:50 05:44 RBC (3.65-5.03) M/mm3 Hgb (11.8-15.2) gm/dl Hct (35.5-45.6) % RDW (13.2-15.2) % Plt Count (140-440) K/mm3 Lymph % (Auto) (13.4-35.0) % [place] % (Auto) (0.0-7.3) % Lymph # (1.2-5.4) K/mm3 [place] # (0.0-0.8) K/mm3 Seg Neutrophils % (40.0-70.0) % Potassium 5.4 H D (3.6-5.0) mmol/L BUN 25 H (9-20) mg/dL Glucose 107 H (75-100) mg/dL POC Glucose 122 H (70-105) Alkaline Phosphatase 166 H (35-129) units/L Albumin 1.6 L (3.9-5) g/dL
--- NOTE | 2018-10-21 10:40 | Progress Note ---
Assessment and Plan 1. Acute kidney injury: Vasomotor / hemodynamic MÓNICA in the setting of hypotension, sepsis and volume depletion. Renal function is better. Monitor renal function. Avoid nephrotoxic agents. Meds dosage based on GFR. 2. FEN: Hyperkalemia, kayexalate. Hypernatremia, improved. Monitor lytes. 3. Sepsis with shock: MRSA bacteremia. Multiple decubiti. Followed by ID. 4. Acute hypoxic respiratory failure. 5. Anemia: PRBC. 6. Encephalopathy. Subjective Date of service: 10/21/18 Principal diagnosis: Septic shock; Ac encephalopathy; Multiple decubitus ulcers; Ac renal failur Interval history: Patient was seen and examined at the bedside. Objective - Vital Signs Vital signs: Vital Signs - 12hr 10/20/18 10/21/18 10/21/18 23:21 04:12 09:34 Temperature 101.3 F H 98.3 F 98.4 F Pulse Rate 96 H 86 78 Respiratory 18 20 18 Rate Blood Pressure 109/56 123/65 Blood Pressure 156/74 [Left] O2 Sat by Pulse 96 98 99 Oximetry - General Appearance General appearance: well-developed, appears stated age, other (no distress) EENT: ATNC, PERRL Respiratory: Present: Clear to Ascultation Cardiology: regular, S1S2, no murmurs Gastrointestinal: normoactive bowel sounds, other (PEG tube noted, condom catheter) Integumentary: ulcer, decubiti Neurologic: other (speaks few words, not following any command) Musculoskeletal: other (multiple contractures noted) - Lab 10/21/18 04:50 10/21/18 14:50 Most recent lab results Calcium 9.0 mg/dL (8.4-10.2) 10/21/18 04:50 Phosphorus 4.20 mg/dL (2.5-4.5) 10/21/18 04:50 Magnesium 2.20 mg/dL (1.7-2.3) 10/21/18 04:50 74.7 mg/dL (0.1-20.0) H 10/02/18 04:45 21 mmol/L 10/02/18 04:45 Medications & Allergies - Medications Allergies/Adverse Reactions: Allergies lisinopril Allergy (Verified 10/01/18 15:17) Unknown tramadol Allergy (Verified 07/29/18 18:39) Unknown Home Medications: Home Medications Medication Instructions Recorded Confirmed Last Taken Type Multivit-Min/Iron Fum/Folic AC 1 each PO DAILY 03/24/18 10/03/18 Unknown History [Cdnqx-Vlgqual-Lxocnwuq Tablet] Acetaminophen 650 mg NGTUBE Q6H PRN 07/30/18 10/03/18 Unknown History Ipratropium/Albuterol Sulfate 1 ampul IH BID 07/30/18 10/03/18 Unknown History [DUONEB *Not for PRN Use*] Tamsulosin [Flomax] 0.4 mg PO QDAY 07/30/18 10/03/18 Unknown History Vit C/Ascorbate Calcium,Sodium 500 mg NGTUBE BID 07/30/18 10/03/18 Unknown History [Vitamin C 500 mg/15 ml Liquid] Zinc Sulfate 220 mg NGTUBE QDAY 07/30/18 10/03/18 Unknown History levETIRAcetam [Keppra INJ] 500 mg PO Q12H 07/30/18 10/03/18 Unknown History Phosphorus #1 [K-Phos Neutral] 250 mg PO QID #30 tablet 08/23/18 10/03/18 Unknown Rx hydroCHLOROthiazide [HCTZ] 12.5 mg PO QDAY #30 tablet 08/23/18 10/03/18 Unknown Rx AtorvaSTATin [Lipitor] 40 mg NGTUBE QHS #30 tablet 10/21/18 Unknown Rx Carvedilol [Coreg] 6.25 mg PO BID #60 tablet 10/21/18 Unknown Rx cloNIDine-TTS PATCH [Catapres-Tts 0.2 mg TD Tu #7 patch 10/21/18 Unknown Rx 0.2mg Patch] Active Medications: Generic Name Dose Route Start Last Admin Trade Name Freq PRN Reason Stop Dose Admin Acetaminophen 650 mg 10/01/18 15:32 10/14/18 21:09 Tylenol FEEDTUBE 650 mg Q6H PRN Administration Pain, Moderate (4-6) Albuterol 2.5 mg 10/01/18 17:40 10/04/18 21:02 Proventil IH 2.5 mg Q3HRT PRN Administration Shortness Of Breath Lipase/Protease/Amylase 1 each 10/15/18 10:41 Pancrenomi Moore 10,500 Unit FEEDTUBE PRN PRN For Clogged Feeding Tube Ascorbic Acid 500 mg 10/04/18 10:00 10/20/18 22:58 Vitamin C FEEDTUBE 500 mg BID NORA Administration Atorvastatin Calcium 40 mg 10/01/18 22:00 10/20/18 22:58 Lipitor FEEDTUBE 40 mg QHS NORA Administration Carvedilol 6.25 mg 10/13/18 22:00 10/20/18 22:58 Coreg PO 6.25 mg BID NORA Administration Clonidine HCl 0.2 mg 10/08/18 10:00 10/15/18 09:48 Catapres-Tts Patch TD 0.2 mg Tu NORA Administration Famotidine 20 mg 10/03/18 12:00 10/20/18 11:37 Pepcid PO 20 mg DAILY NORA Administration Heparin Sodium (Porcine) 5,000 unit 10/01/18 22:00 10/20/18 22:58 Heparin SUB-Q 5,000 unit Q12HR NORA Administration Hydralazine HCl 10 mg 10/07/18 15:12 10/07/18 18:00 Apresoline IV 10 mg Q4HR PRN Administration Blood Pressure Hydrochlorothiazide 25 mg 10/11/18 09:00 10/20/18 11:37 Hctz PO 25 mg QDAY NORA Administration Vancomycin HCl 1 gm in 250 mls @ 167.007 mls/hr 10/08/18 10:00 10/20/18 11:36 Vancomycin/Ns 1 Gm/250 Ml IV 11/12/18 09:59 167.007 mls/hr Q48HR NORA Administration Insulin Human Lispro 0 unit 10/13/18 12:00 10/21/18 06:51 Humalog SUB-Q Not Given Q6HR [facility] Protocol Levetiracetam 500 mg 10/01/18 22:00 10/20/18 22:58 Keppra PO 500 mg BID NORA Administration Multivitamins 1 each 10/02/18 10:00 10/20/18 11:37 Theragran Tab PO 1 each DAILY NORA Administration Oxycodone/Acetaminophen 1 tab 10/02/18 20:16 10/08/18 23:23 Percocet 5/325 PO 1 tab Q4H PRN Administration Pain, Moderate (4-6) Simple Syrup 15 ml 10/15/18 10:41 Simple Syrup FEEDTUBE PRN PRN Hypoglycemia Simple Syrup 30 ml 10/15/18 10:41 Simple Syrup FEEDTUBE PRN PRN Hypoglycemia Sodium Bicarbonate 325 mg 10/15/18 10:41 Sodium Bicarbonate FEEDTUBE PRN PRN For Clogged Feeding Tube Sodium Chloride 10 ml 10/01/18 22:00 10/20/18 22:59 Sodium Chloride Flush Syringe 10 Ml IV 10 ml BID NORA Administration Sodium Chloride 10 ml 10/01/18 17:40 10/05/18 21:30 Sodium Chloride Flush Syringe 10 Ml IV 10 ml PRN PRN Administration LINE FLUSH Sodium Polystyrene Sulfonate 15 gm 10/21/18 11:00 Kionex PO 10/21/18 11:01 ONCE ONE Zinc Sulfate 220 mg 10/02/18 10:00 10/20/18 11:36 Zinc Sulfate PO 220 mg QDAY NORA Administration
[2018-10-21] MEDS ORDERED: KIONEX PO ONE (11:00)
[2018-10-21] MEDS: VITAMIN C FEEDTUBE SCH ×2 (11:35→21:04)
[2018-10-21] MEDS: PEPCID PO SCH (11:35)
[2018-10-21] MEDS: COREG PO SCH ×2 (11:35→21:06)
[2018-10-21] MEDS: KEPPRA PO SCH ×2 (11:36→21:05)
[2018-10-21] MEDS: THERAGRAN Tab PO SCH (11:36)
[2018-10-21] MEDS: HCTZ PO SCH (11:36)
[2018-10-21] MEDS: ZINC SULFATE PO SCH (11:42)
[2018-10-21] MEDS: SODIUM CHLORIDE FLUSH SYRINGE 10 ML IV SCH ×2 (11:43→21:05)
--- NOTE | 2018-10-21 13:34 | Discharge Summary ---
Providers - Providers Date of Admission: 10/01/18 17:40 Date of discharge: 10/21/18 Attending physician: MEENA NOLASCO 10/01/18 19:30 Consult to Physician [CONS] Routine Comment: Consulting Provider: MP REYES Physician Instructions: Reason For Exam: ARF 10/02/18 02:41 Consult to Wound/ET Nurse [CONS] Urgent Reason For Exam: wound eval 10/02/18 09:05 Consult to Physician [CONS] Routine Comment: Consulting Provider: KASIA BAKER Physician Instructions: Reason For Exam: critical care management 10/02/18 09:52 Consult to Physician [CONS] Routine Comment: Consulting Provider: PENNY IYER Physician Instructions: Reason For Exam: Severe sepsis, h/o MDRO E.coli, antibiotic mgt 10/02/18 09:53 PICC Line Insertion [Consult to PICC Line RN] [CONS] Urgent Reason For Exam: severe sepsis secondary to UTI, on vasopressors Type Line:: PICC 10/09/18 17:06 Consult to Case Management [CONS] Urgent Services Needed at Discharge: Other Notified:: no Additional Physician Instructions: [facility] M [phone] O [phone] F [phone] OUTPATIENT PARENTERAL ANTIBIOTIC THERAPY ORDERS Diagnoses: MRSA bacteremia Antimicrobial administration: Anticipate discharge on Vancomycin 1 gm every 48 hours for total 6 weeks ending 11-12-18. Remove PICC line after last dose unless otherwise instructed. Lines: PICC Lab monitoring: CBC, BUN, Creatinine, ALT, AST, CRP vancomycin trough once a week preferly on Sunday morning. Please fax results to [phone] and call [phone] for critical lab results. Jacquie Jean Baptiste NP/Penny Wynne MD Date: 10/09/18 10/09/18 17:08 Consult to PICC Line RN [CONS] Routine Reason For Exam: OPAT Type Line:: PICC 10/15/18 00:59 Consult to Physician [CONS] Routine Comment: Consulting Provider: FLORENCIO ORTEGA Physician Instructions: Reason For Exam: PICC line placement in neck 10/15/18 09:33 Consult to Dietitian/Nutrition [CONS] Routine Physician Instructions: Assess nutrtn needs, initiate, modify, manage TF Reason For Exam: Reason for Consult: Write/Manage Tube Feeding Reason for Consult: Write/Manage Tube Feeding Hospitalization Condition: Stable Disposition: DC-30 STILL A PATIENT Exam - Constitutional Vitals: Temp Pulse Resp BP Pulse Ox 98.4 F 78 18 125/66 97 10/21/18 13:13 10/21/18 09:34 10/21/18 13:13 10/21/18 13:13 10/21/18 12:53 Plan Diet: other (TF) Wound: per wound nurse instructions Additional Instructions: Vancomycin 1 gm every 48 hours for total 6 weeks ending 11-12-18 Follow up with: RAMSEY PORTILLO [Other] - 3-5 Days Prescriptions: AtorvaSTATin [Lipitor] 40 mg NGTUBE QHS #30 tablet cloNIDine-TTS PATCH [Catapres-Tts 0.2mg Patch] 0.2 mg TD Tu #7 patch Carvedilol [Coreg] 6.25 mg PO BID #60 tablet
--- NOTE | 2018-10-21 14:10 | Progress Note ---
Assessment and Plan Patient sleeping on 3L O2 at this time. O2 Sat 100%. Patient contracted No acute respiratory distress. - Patient Problems (1) Acute respiratory failure with hypoxia Current Visit: Yes Status: Acute Plan to address problem: O2 3 litres via nasal canula. Albuterol aerosol treatments q 6 hours. Continue S/C Heparin Continue famotidine. (2) Sepsis Current Visit: Yes Status: Acute Qualifiers: Sepsis type: sepsis due to unspecified organism Qualified Code(s): A41.9 - Sepsis, unspecified organism Plan to address problem: Patient is on vancomycin. (3) Decubitus ulcer Current Visit: No Status: Acute Plan to address problem: Wound care consultation. Patient is on vancomycin. (4) Diabetes Current Visit: No Status: Acute Plan to address problem: Management as per primary care. (5) HTN (hypertension) Current Visit: No Status: Acute Qualifiers: Hypertension type: essential hypertension Qualified Code(s): I10 - Essential (primary) hypertension Plan to address problem: Management as per primary care. Subjective Date of service: 10/21/18 Principal diagnosis: Septic shock; Ac encephalopathy; Multiple decubitus ulcers; Ac renal failur Interval history: Patient sleeping on 3L O2 at this time. O2 Sat 100%. Patient contracted No acute respiratory distress. Objective Vital Signs - 12hr 10/21/18 10/21/18 10/21/18 04:12 09:34 12:53 Temperature 98.3 F 98.4 F Pulse Rate 86 78 Respiratory 20 18 Rate Blood Pressure 123/65 Blood Pressure 156/74 [Left] O2 Sat by Pulse 98 99 97 Oximetry 10/21/18 13:13 Temperature 98.4 F Pulse Rate Respiratory 18 Rate Blood Pressure 125/66 Blood Pressure [Left] O2 Sat by Pulse Oximetry Constitutional: no acute distress, asleep, other (elderly looking AAM, normo cephalic but contrated .) Eyes: non-icteric ENT: oropharynx moist Neck: no lymphadenopathy, no JVD, other (neck stiff and deviated to the right side) Effort: normal Ascultation: Bilateral: diminished breath sounds, rhonchi (scant in bases) Percussion: Bilateral: not dull Cardiovascular: regular rate and rhythm Gastrointestinal: normoactive bowel sounds, soft, non-tender, non-distended, other (PEG tube) Integumentary: rash Extremities: no cyanosis, no edema, pulses normal, no ischemia or petechiae Neurologic: pupils equal and round, other (tardive dyskinetic movts) Psychiatric: other (unable to assess) CBC and BMP: 10/21/18 04:50 10/21/18 14:50 ABG, PT/INR, D-dimer: ABG POC ABG pH 7.480 (7.35-7.45) H 10/01/18 18:12 POC ABG pO2 64 (80-105) L 10/01/18 18:12 POC ABG HCO3 21.0 (22-26 mml/L) 10/01/18 18:12 POC ABG Total CO2 22 (23-27mmol/L) 10/01/18 18:12 POC ABG O2 Sat 94 10/01/18 18:12 Abnormal lab findings: Abnormal Labs 10/01/18 10/01/18 10/01/18 14:29 14:29 15:13 WBC 18.5 H RBC 2.68 L Hgb 7.3 L Hct 23.1 L MCH 27 L MCHC 31 L RDW 19.3 H Plt Count 522 H Lymph % (Auto) 6.7 L [place] % (Auto) Eos % (Auto) Lymph # [place] # 1.2 H Eos # Seg Neutrophils % 85.0 H Seg Neuts % (Manual) Lymphocytes % (Manual) Seg Neutrophils # 15.7 H Seg Neutrophils # Man Lymphocytes # (Manual) POC ABG pH POC ABG pO2 Sodium 148 H Potassium 3.3 L Chloride Carbon Dioxide BUN 98 H Creatinine 2.0 H Glucose 142 H POC Glucose Lactic Acid Calcium Phosphorus Magnesium AST Alkaline Phosphatase Troponin T 0.361 H* C-Reactive Protein Albumin Cholesterol 36 L LDL Cholesterol Direct 6 L HDL Cholesterol 21 L Urine WBC (Auto) > 182.0 H Urine Creatinine Vancomycin Trough Crossmatch 10/01/18 10/01/18 10/01/18 15:15 15:15 17:03 WBC RBC Hgb Hct MCH MCHC RDW Plt Count Lymph % (Auto) [place] % (Auto) Eos % (Auto) Lymph # [place] # Eos # Seg Neutrophils % Seg Neuts % (Manual) Lymphocytes % (Manual) Seg Neutrophils # Seg Neutrophils # Man Lymphocytes # (Manual) POC ABG pH POC ABG pO2 Sodium 150 H Potassium Chloride Carbon Dioxide BUN 94 H Creatinine 2.1 H Glucose 132 H POC Glucose Lactic Acid 2.60 H* 2.20 H* Calcium 7.8 L Phosphorus Magnesium AST 47 H Alkaline Phosphatase 179 H Troponin T C-Reactive Protein Albumin 2.1 L Cholesterol LDL Cholesterol Direct HDL Cholesterol Urine WBC (Auto) Urine Creatinine Vancomycin Trough Crossmatch 10/01/18 10/01/18 10/01/18 18:12 18:23 18:23 WBC RBC Hgb Hct MCH MCHC RDW Plt Count Lymph % (Auto) [place] % (Auto) Eos % (Auto) Lymph # [place] # Eos # Seg Neutrophils % Seg Neuts % (Manual) Lymphocytes % (Manual) Seg Neutrophils # Seg Neutrophils # Man Lymphocytes # (Manual) POC ABG pH 7.480 H POC ABG pO2 64 L Sodium Potassium Chloride Carbon Dioxide BUN Creatinine Glucose POC Glucose Lactic Acid Calcium Phosphorus Magnesium 3.30 H AST Alkaline Phosphatase Troponin T 0.378 H* C-Reactive Protein Albumin Cholesterol LDL Cholesterol Direct HDL Cholesterol Urine WBC (Auto) Urine Creatinine Vancomycin Trough Crossmatch 10/01/18 10/01/18 10/01/18 18:48 21:20 23:48 WBC RBC Hgb Hct MCH MCHC RDW Plt Count Lymph % (Auto) [place] % (Auto) Eos % (Auto) Lymph # [place] # Eos # Seg Neutrophils % Seg Neuts % (Manual) Lymphocytes % (Manual) Seg Neutrophils # Seg Neutrophils # Man Lymphocytes # (Manual) POC ABG pH POC ABG pO2 Sodium Potassium Chloride Carbon Dioxide BUN Creatinine Glucose POC Glucose Lactic Acid 2.30 H* 2.70 H* Calcium Phosphorus Magnesium AST Alkaline Phosphatase Troponin T 0.336 H* C-Reactive Protein Albumin Cholesterol LDL Cholesterol Direct HDL Cholesterol Urine WBC (Auto) Urine Creatinine Vancomycin Trough Crossmatch 10/01/18 10/02/18 10/02/18 23:48 04:45 04:45 WBC 18.3 H RBC 2.40 L Hgb 6.4 L Hct 20.4 L MCH 27 L MCHC 31 L RDW 19.1 H Plt Count 462 H Lymph % (Auto) [place] % (Auto) Eos % (Auto) Lymph # [place] # Eos # Seg Neutrophils % Seg Neuts % (Manual) 78.0 H Lymphocytes % (Manual) 5.0 L Seg Neutrophils # Seg Neutrophils # Man 14.3 H Lymphocytes # (Manual) 0.9 L POC ABG pH POC ABG pO2 Sodium Potassium Chloride Carbon Dioxide BUN Creatinine Glucose POC Glucose Lactic Acid 2.50 H* Calcium Phosphorus Magnesium AST Alkaline Phosphatase Troponin T C-Reactive Protein Albumin Cholesterol LDL Cholesterol Direct HDL Cholesterol Urine WBC (Auto) Urine Creatinine 74.7 H Vancomycin Trough Crossmatch 10/02/18 10/02/18 10/02/18 04:45 04:45 04:45 WBC RBC Hgb Hct MCH MCHC RDW Plt Count Lymph % (Auto) [place] % (Auto) Eos % (Auto) Lymph # [place] # Eos # Seg Neutrophils % Seg Neuts % (Manual) Lymphocytes % (Manual) Seg Neutrophils # Seg Neutrophils # Man Lymphocytes # (Manual) POC ABG pH POC ABG pO2 Sodium 148 H Potassium 3.1 L Chloride 108.6 H Carbon Dioxide 21 L BUN 89 H Creatinine 1.8 H Glucose POC Glucose Lactic Acid 2.10 H* Calcium 8.3 L Phosphorus 5.00 H Magnesium AST Alkaline Phosphatase 161 H Troponin T C-Reactive Protein Albumin 1.7 L Cholesterol LDL Cholesterol Direct HDL Cholesterol Urine WBC (Auto) Urine Creatinine Vancomycin Trough Crossmatch 10/02/18 10/02/18 10/03/18 09:46 11:47 00:03 WBC RBC Hgb Hct MCH MCHC RDW Plt Count Lymph % (Auto) [place] % (Auto) Eos % (Auto) Lymph # [place] # Eos # Seg Neutrophils % Seg Neuts % (Manual) Lymphocytes % (Manual) Seg Neutrophils # Seg Neutrophils # Man Lymphocytes # (Manual) POC ABG pH POC ABG pO2 Sodium Potassium Chloride Carbon Dioxide BUN Creatinine Glucose POC Glucose 112 H 106 H Lactic Acid Calcium Phosphorus Magnesium AST Alkaline Phosphatase Troponin T C-Reactive Protein Albumin Cholesterol LDL Cholesterol Direct HDL Cholesterol Urine WBC (Auto) Urine Creatinine Vancomycin Trough Crossmatch See Detail 10/03/18 10/03/18 10/03/18 06:06 06:45 06:45 WBC 17.3 H RBC 2.81 L Hgb 7.6 L Hct 24.1 L MCH 27 L MCHC 31 L RDW 18.4 H Plt Count 473 H Lymph % (Auto) 5.2 L [place] % (Auto) Eos % (Auto) 4.6 H Lymph # 0.9 L [place] # Eos # 0.8 H Seg Neutrophils % 85.7 H Seg Neuts % (Manual) Lymphocytes % (Manual) Seg Neutrophils # 14.8 H Seg Neutrophils # Man Lymphocytes # (Manual) POC ABG pH POC ABG pO2 Sodium 148 H Potassium Chloride 112.1 H Carbon Dioxide 21 L BUN 79 H Creatinine 1.7 H Glucose 116 H POC Glucose 130 H Lactic Acid Calcium 7.9 L Phosphorus Magnesium AST Alkaline Phosphatase Troponin T C-Reactive Protein Albumin Cholesterol LDL Cholesterol Direct HDL Cholesterol Urine WBC (Auto) Urine Creatinine Vancomycin Trough Crossmatch 10/03/18 10/03/18 10/03/18 11:50 17:42 23:20 WBC RBC Hgb Hct MCH MCHC RDW Plt Count Lymph % (Auto) [place] % (Auto) Eos % (Auto) Lymph # [place] # Eos # Seg Neutrophils % Seg Neuts % (Manual) Lymphocytes % (Manual) Seg Neutrophils # Seg Neutrophils # Man Lymphocytes # (Manual) POC ABG pH POC ABG pO2 Sodium Potassium Chloride Carbon Dioxide BUN Creatinine Glucose POC Glucose 126 H 118 H 106 H Lactic Acid Calcium Phosphorus Magnesium AST Alkaline Phosphatase Troponin T C-Reactive Protein Albumin Cholesterol LDL Cholesterol Direct HDL Cholesterol Urine WBC (Auto) Urine Creatinine Vancomycin Trough Crossmatch 10/04/18 10/04/18 10/04/18 05:22 07:00 07:00 WBC 14.8 H RBC 2.38 L Hgb 6.4 L Hct 20.5 L MCH 27 L MCHC 31 L RDW 18.2 H Plt Count Lymph % (Auto) 5.3 L [place] % (Auto) Eos % (Auto) 9.5 H Lymph # 0.8 L [place] # Eos # 1.4 H Seg Neutrophils % 81.2 H Seg Neuts % (Manual) Lymphocytes % (Manual) Seg Neutrophils # 12.0 H Seg Neutrophils # Man Lymphocytes # (Manual) POC ABG pH POC ABG pO2 Sodium 148 H Potassium Chloride 112.0 H Carbon Dioxide BUN 73 H Creatinine Glucose 105 H POC Glucose 115 H Lactic Acid Calcium 8.1 L Phosphorus Magnesium AST Alkaline Phosphatase Troponin T C-Reactive Protein Albumin 1.5 L Cholesterol LDL Cholesterol Direct HDL Cholesterol Urine WBC (Auto) Urine Creatinine Vancomycin Trough Crossmatch 10/04/18 10/04/18 10/05/18 12:35 18:28 04:20 WBC 14.1 H RBC 2.94 L Hgb 8.2 L Hct 25.2 L MCH MCHC RDW 17.9 H Plt Count Lymph % (Auto) 6.6 L [place] % (Auto) Eos % (Auto) 6.4 H Lymph # 0.9 L [place] # Eos # 0.9 H Seg Neutrophils % 82.7 H Seg Neuts % (Manual) Lymphocytes % (Manual) Seg Neutrophils # 11.6 H Seg Neutrophils # Man Lymphocytes # (Manual) POC ABG pH POC ABG pO2 Sodium Potassium Chloride Carbon Dioxide BUN Creatinine Glucose POC Glucose 109 H 109 H Lactic Acid Calcium Phosphorus Magnesium AST Alkaline Phosphatase Troponin T C-Reactive Protein Albumin Cholesterol LDL Cholesterol Direct HDL Cholesterol Urine WBC (Auto) Urine Creatinine Vancomycin Trough Crossmatch 10/05/18 10/05/18 10/05/18 04:20 11:45 17:32 WBC RBC Hgb Hct MCH MCHC RDW Plt Count Lymph % (Auto) [place] % (Auto) Eos % (Auto) Lymph # [place] # Eos # Seg Neutrophils % Seg Neuts % (Manual) Lymphocytes % (Manual) Seg Neutrophils # Seg Neutrophils # Man Lymphocytes # (Manual) POC ABG pH POC ABG pO2 Sodium Potassium Chloride 110.0 H Carbon Dioxide 21 L BUN 64 H Creatinine Glucose POC Glucose 118 H 113 H Lactic Acid Calcium 8.3 L Phosphorus Magnesium AST Alkaline Phosphatase Troponin T C-Reactive Protein Albumin Cholesterol LDL Cholesterol Direct HDL Cholesterol Urine WBC (Auto) Urine Creatinine Vancomycin Trough Crossmatch 10/06/18 10/06/18 10/06/18 05:15 05:15 05:35 WBC 12.3 H RBC 2.77 L Hgb 7.6 L Hct 24.1 L MCH MCHC RDW 18.1 H Plt Count Lymph % (Auto) 4.9 L [place] % (Auto) Eos % (Auto) 7.3 H Lymph # 0.6 L [place] # Eos # 0.9 H Seg Neutrophils % 81.1 H Seg Neuts % (Manual) Lymphocytes % (Manual) Seg Neutrophils # 10.0 H Seg Neutrophils # Man Lymphocytes # (Manual) POC ABG pH POC ABG pO2 Sodium 146 H Potassium Chloride 112.1 H Carbon Dioxide BUN 57 H Creatinine Glucose 120 H POC Glucose 115 H Lactic Acid Calcium Phosphorus Magnesium AST Alkaline Phosphatase Troponin T C-Reactive Protein Albumin Cholesterol LDL Cholesterol Direct HDL Cholesterol Urine WBC (Auto) Urine Creatinine Vancomycin Trough Crossmatch 10/06/18 10/06/18 10/06/18 12:31 18:44 Unknown WBC RBC Hgb Hct MCH MCHC RDW Plt Count Lymph % (Auto) [place] % (Auto) Eos % (Auto) Lymph # [place] # Eos # Seg Neutrophils % Seg Neuts % (Manual) Lymphocytes % (Manual) Seg Neutrophils # Seg Neutrophils # Man Lymphocytes # (Manual) POC ABG pH POC ABG pO2 Sodium Potassium Chloride Carbon Dioxide BUN Creatinine Glucose POC Glucose 150 H 125 H Lactic Acid Calcium Phosphorus Magnesium AST Alkaline Phosphatase Troponin T C-Reactive Protein Albumin Cholesterol LDL Cholesterol Direct HDL Cholesterol Urine WBC (Auto) Urine Creatinine Vancomycin Trough 23.5 H Crossmatch 10/07/18 10/07/18 10/07/18 05:06 05:06 08:34 WBC RBC Hgb 8.2 L Hct 25.8 L MCH MCHC RDW Plt Count Lymph % (Auto) [place] % (Auto) Eos % (Auto) Lymph # [place] # Eos # Seg Neutrophils % Seg Neuts % (Manual) Lymphocytes % (Manual) Seg Neutrophils # Seg Neutrophils # Man Lymphocytes # (Manual) POC ABG pH POC ABG pO2 Sodium Potassium Chloride 112.2 H Carbon Dioxide 21 L BUN 43 H Creatinine Glucose POC Glucose Lactic Acid Calcium 8.3 L Phosphorus Magnesium AST Alkaline Phosphatase Troponin T C-Reactive Protein Albumin Cholesterol LDL Cholesterol Direct HDL Cholesterol Urine WBC (Auto) Urine Creatinine Vancomycin Trough 23.0 H Crossmatch 10/08/18 10/08/18 10/08/18 05:07 05:07 11:09 WBC RBC 2.86 L Hgb 8.0 L Hct 24.5 L MCH MCHC RDW 18.7 H Plt Count Lymph % (Auto) 7.8 L [place] % (Auto) 8.2 H Eos % (Auto) 5.9 H Lymph # 0.8 L [place] # 0.9 H Eos # 0.6 H Seg Neutrophils % 77.8 H Seg Neuts % (Manual) Lymphocytes % (Manual) Seg Neutrophils # 8.2 H Seg Neutrophils # Man Lymphocytes # (Manual) POC ABG pH POC ABG pO2 Sodium Potassium 5.1 H Chloride 111.8 H Carbon Dioxide BUN 37 H Creatinine Glucose 101 H POC Glucose Lactic Acid Calcium 8.3 L Phosphorus Magnesium 2.50 H AST Alkaline Phosphatase Troponin T C-Reactive Protein 11.40 H Albumin Cholesterol LDL Cholesterol Direct HDL Cholesterol Urine WBC (Auto) Urine Creatinine Vancomycin Trough Crossmatch 10/09/18 10/10/18 10/10/18 05:48 09:02 09:02 WBC 13.6 H RBC 2.80 L Hgb 7.5 L Hct 23.9 L MCH 27 L MCHC 31 L RDW 18.9 H Plt Count Lymph % (Auto) 5.7 L [place] % (Auto) 8.5 H Eos % (Auto) Lymph # 0.8 L [place] # 1.1 H Eos # Seg Neutrophils % 83.9 H Seg Neuts % (Manual) Lymphocytes % (Manual) Seg Neutrophils # 11.4 H Seg Neutrophils # Man Lymphocytes # (Manual) POC ABG pH POC ABG pO2 Sodium Potassium 5.2 H 5.6 H Chloride 112.9 H 111.7 H Carbon Dioxide 21 L BUN 34 H 32 H Creatinine 0.7 L Glucose 109 H POC Glucose Lactic Acid Calcium Phosphorus Magnesium AST Alkaline Phosphatase Troponin T C-Reactive Protein Albumin Cholesterol LDL Cholesterol Direct HDL Cholesterol Urine WBC (Auto) Urine Creatinine Vancomycin Trough Crossmatch 10/11/18 10/11/18 10/11/18 04:41 04:41 09:09 WBC 11.4 H RBC 2.52 L Hgb 6.9 L Hct 22.0 L MCH 27 L MCHC 31 L RDW 19.0 H Plt Count Lymph % (Auto) [place] % (Auto) Eos % (Auto) Lymph # [place] # Eos # Seg Neutrophils % Seg Neuts % (Manual) Lymphocytes % (Manual) Seg Neutrophils # Seg Neutrophils # Man Lymphocytes # (Manual) POC ABG pH POC ABG pO2 Sodium 146 H Potassium Chloride 113.0 H Carbon Dioxide BUN 30 H Creatinine Glucose POC Glucose Lactic Acid Calcium 8.2 L Phosphorus Magnesium AST Alkaline Phosphatase Troponin T C-Reactive Protein Albumin Cholesterol LDL Cholesterol Direct HDL Cholesterol Urine WBC (Auto) Urine Creatinine Vancomycin Trough Crossmatch See Detail 10/11/18 10/12/18 10/12/18 23:29 04:22 04:22 WBC RBC 2.98 L Hgb 8.3 L Hct 25.5 L MCH MCHC RDW 17.7 H Plt Count Lymph % (Auto) [place] % (Auto) Eos % (Auto) Lymph # [place] # Eos # Seg Neutrophils % Seg Neuts % (Manual) Lymphocytes % (Manual) Seg Neutrophils # Seg Neutrophils # Man Lymphocytes # (Manual) POC ABG pH POC ABG pO2 Sodium 146 H 146 H Potassium Chloride 110.6 H 112.8 H Carbon Dioxide BUN 30 H 29 H Creatinine Glucose 102 H POC Glucose Lactic Acid Calcium 8.2 L Phosphorus 4.60 H Magnesium AST Alkaline Phosphatase Troponin T C-Reactive Protein Albumin Cholesterol LDL Cholesterol Direct HDL Cholesterol Urine WBC (Auto) Urine Creatinine Vancomycin Trough Crossmatch 10/13/18 10/13/18 10/14/18 23:00 23:00 00:15 WBC RBC 2.95 L Hgb 8.6 L Hct 25.4 L MCH MCHC RDW 18.1 H Plt Count Lymph % (Auto) [place] % (Auto) Eos % (Auto) Lymph # [place] # Eos # Seg Neutrophils % Seg Neuts % (Manual) Lymphocytes % (Manual) Seg Neutrophils # Seg Neutrophils # Man Lymphocytes # (Manual) POC ABG pH POC ABG pO2 Sodium Potassium 5.4 H Chloride 111.4 H Carbon Dioxide BUN 30 H Creatinine Glucose 107 H POC Glucose 151 H Lactic Acid Calcium Phosphorus Magnesium AST Alkaline Phosphatase Troponin T C-Reactive Protein Albumin Cholesterol LDL Cholesterol Direct HDL Cholesterol Urine WBC (Auto) Urine Creatinine Vancomycin Trough Crossmatch 10/14/18 10/14/18 10/15/18 07:18 18:33 05:32 WBC RBC Hgb Hct MCH MCHC RDW Plt Count Lymph % (Auto) [place] % (Auto) Eos % (Auto) Lymph # [place] # Eos # Seg Neutrophils % Seg Neuts % (Manual) Lymphocytes % (Manual) Seg Neutrophils # Seg Neutrophils # Man Lymphocytes # (Manual) POC ABG pH POC ABG pO2 Sodium 146 H Potassium 5.3 H 3.5 L D Chloride 112.3 H 111.1 H Carbon Dioxide BUN 29 H 28 H Creatinine Glucose 106 H 103 H POC Glucose 124 H Lactic Acid Calcium Phosphorus Magnesium AST Alkaline Phosphatase Troponin T C-Reactive Protein Albumin Cholesterol LDL Cholesterol Direct HDL Cholesterol Urine WBC (Auto) Urine Creatinine Vancomycin Trough Crossmatch 10/15/18 10/15/18 10/16/18 05:32 11:59 00:02 WBC RBC 2.93 L Hgb 8.2 L Hct 25.4 L MCH MCHC RDW 17.5 H Plt Count Lymph % (Auto) [place] % (Auto) Eos % (Auto) Lymph # [place] # Eos # Seg Neutrophils % Seg Neuts % (Manual) Lymphocytes % (Manual) Seg Neutrophils # Seg Neutrophils # Man Lymphocytes # (Manual) POC ABG pH POC ABG pO2 Sodium Potassium Chloride Carbon Dioxide BUN Creatinine Glucose POC Glucose 110 H 107 H Lactic Acid Calcium Phosphorus Magnesium AST Alkaline Phosphatase Troponin T C-Reactive Protein Albumin Cholesterol LDL Cholesterol Direct HDL Cholesterol Urine WBC (Auto) Urine Creatinine Vancomycin Trough Crossmatch 10/16/18 10/16/18 10/17/18 05:02 23:27 06:00 WBC RBC Hgb Hct MCH MCHC RDW Plt Count Lymph % (Auto) [place] % (Auto) Eos % (Auto) Lymph # [place] # Eos # Seg Neutrophils % Seg Neuts % (Manual) Lymphocytes % (Manual) Seg Neutrophils # Seg Neutrophils # Man Lymphocytes # (Manual) POC ABG pH POC ABG pO2 Sodium Potassium 3.3 L Chloride 108.9 H 107.5 H Carbon Dioxide BUN 27 H 26 H Creatinine 0.7 L Glucose 118 H POC Glucose 113 H Lactic Acid Calcium Phosphorus Magnesium AST Alkaline Phosphatase Troponin T C-Reactive Protein Albumin Cholesterol LDL Cholesterol Direct HDL Cholesterol Urine WBC (Auto) Urine Creatinine Vancomycin Trough Crossmatch 10/17/18 10/17/18 10/18/18 11:50 16:36 00:50 WBC RBC Hgb Hct MCH MCHC RDW Plt Count Lymph % (Auto) [place] % (Auto) Eos % (Auto) Lymph # [place] # Eos # Seg Neutrophils % Seg Neuts % (Manual) Lymphocytes % (Manual) Seg Neutrophils # Seg Neutrophils # Man Lymphocytes # (Manual) POC ABG pH POC ABG pO2 Sodium Potassium Chloride Carbon Dioxide BUN Creatinine Glucose POC Glucose 108 H 106 H 111 H Lactic Acid Calcium Phosphorus Magnesium AST Alkaline Phosphatase Troponin T C-Reactive Protein Albumin Cholesterol LDL Cholesterol Direct HDL Cholesterol Urine WBC (Auto) Urine Creatinine Vancomycin Trough Crossmatch 10/18/18 10/18/18 10/18/18 06:26 12:54 17:54 WBC RBC Hgb Hct MCH MCHC RDW Plt Count Lymph % (Auto) [place] % (Auto) Eos % (Auto) Lymph # [place] # Eos # Seg Neutrophils % Seg Neuts % (Manual) Lymphocytes % (Manual) Seg Neutrophils # Seg Neutrophils # Man Lymphocytes # (Manual) POC ABG pH POC ABG pO2 Sodium Potassium Chloride Carbon Dioxide BUN Creatinine Glucose POC Glucose 112 H 113 H 108 H Lactic Acid Calcium Phosphorus Magnesium AST Alkaline Phosphatase Troponin T C-Reactive Protein Albumin Cholesterol LDL Cholesterol Direct HDL Cholesterol Urine WBC (Auto) Urine Creatinine Vancomycin Trough Crossmatch 10/18/18 10/19/18 10/19/18 23:38 06:13 12:22 WBC RBC Hgb Hct MCH MCHC RDW Plt Count Lymph % (Auto) [place] % (Auto) Eos % (Auto) Lymph # [place] # Eos # Seg Neutrophils % Seg Neuts % (Manual) Lymphocytes % (Manual) Seg Neutrophils # Seg Neutrophils # Man Lymphocytes # (Manual) POC ABG pH POC ABG pO2 Sodium Potassium Chloride Carbon Dioxide BUN Creatinine Glucose POC Glucose 107 H 121 H 120 H Lactic Acid Calcium Phosphorus Magnesium AST Alkaline Phosphatase Troponin T C-Reactive Protein Albumin Cholesterol LDL Cholesterol Direct HDL Cholesterol Urine WBC (Auto) Urine Creatinine Vancomycin Trough Crossmatch 10/19/18 10/20/18 10/20/18 18:13 00:18 12:12 WBC RBC Hgb Hct MCH MCHC RDW Plt Count Lymph % (Auto) [place] % (Auto) Eos % (Auto) Lymph # [place] # Eos # Seg Neutrophils % Seg Neuts % (Manual) Lymphocytes % (Manual) Seg Neutrophils # Seg Neutrophils # Man Lymphocytes # (Manual) POC ABG pH POC ABG pO2 Sodium Potassium Chloride Carbon Dioxide BUN Creatinine Glucose POC Glucose 106 H 113 H 120 H Lactic Acid Calcium Phosphorus Magnesium AST Alkaline Phosphatase Troponin T C-Reactive Protein Albumin Cholesterol LDL Cholesterol Direct HDL Cholesterol Urine WBC (Auto) Urine Creatinine Vancomycin Trough Crossmatch 10/21/18 10/21/18 10/21/18 00:26 04:50 04:50 WBC RBC 2.97 L Hgb 8.3 L Hct 25.4 L MCH MCHC RDW 17.6 H Plt Count 586 H Lymph % (Auto) 9.7 L [place] % (Auto) 16.0 H Eos % (Auto) Lymph # 1.0 L [place] # 1.7 H Eos # Seg Neutrophils % 70.3 H Seg Neuts % (Manual) Lymphocytes % (Manual) Seg Neutrophils # Seg Neutrophils # Man Lymphocytes # (Manual) POC ABG pH POC ABG pO2 Sodium Potassium 5.4 H D Chloride Carbon Dioxide BUN 25 H Creatinine Glucose 107 H POC Glucose 113 H Lactic Acid Calcium Phosphorus Magnesium AST Alkaline Phosphatase 166 H Troponin T C-Reactive Protein Albumin 1.6 L Cholesterol LDL Cholesterol Direct HDL Cholesterol Urine WBC (Auto) Urine Creatinine Vancomycin Trough Crossmatch 10/21/18 10/21/18 05:44 11:22 WBC RBC Hgb Hct MCH MCHC RDW Plt Count Lymph % (Auto) [place] % (Auto) Eos % (Auto) Lymph # [place] # Eos # Seg Neutrophils % Seg Neuts % (Manual) Lymphocytes % (Manual) Seg Neutrophils # Seg Neutrophils # Man Lymphocytes # (Manual) POC ABG pH POC ABG pO2 Sodium Potassium Chloride Carbon Dioxide BUN Creatinine Glucose POC Glucose 122 H 109 H Lactic Acid Calcium Phosphorus Magnesium AST Alkaline Phosphatase Troponin T C-Reactive Protein Albumin Cholesterol LDL Cholesterol Direct HDL Cholesterol Urine WBC (Auto) Urine Creatinine Vancomycin Trough Crossmatch Allied health notes reviewed: nursing
--- NOTE | 2018-10-21 14:17 | Progress Note ---
Assessment and Plan / Severe sepsis with shock, POA due to bacteremia, UTI and RUL PNA continue Sepsis Protocol: IV antibiotic therapy, IVF resuscitation therapy, MRSA on Blood cultures, s/p IV pressors , ID consulted Per ID: - Continue vancomycin now for MRSA bacteremia. So far no clear source for MRSA bacteremia but suspected possible infected decubitus ulcer - treated with meropenem for 5 days to cover UTI as urine culture was not sent and he has h/o MDR GNRs - Anticipate discharge on Vancomycin 1 gm every 48 hours for total 6 weeks ending 11-12-18 - Again, this infection is incurable, patient's family has been advised hospice several times in the past but refused - New fevers today. ordered blood cultures, UA and urine cultures. Patient remains at high risk of recurrent infections. /MRSA bacteremia - possible source infected decubitus ulcer - cont vanc, ID following, 2d echo showed no vegetation /Decubitus ulcer, multiple with different stages - cont wound care, abx per ID - Could be the source for bacteremia, ID ordered for WBC scan but could not be done because of his chronic contracture/anatomical position /Anemia, s/p 2 units blood transfusion, likely AOCD and severe sepsis - stool for occult blood negative, cont to monitor / MÓNICA with vasomotor nephropathy renal function stable with IVF resuscitation therapy, monitor uop q shift, nephrology consulted in ED. /Right upper lobe Pneumonia, suspect aspiration Treated with IV antibiotic therapy, supplemental oxygen, pulse oximetry, / Elevated troponin Likely due to sepsis with low blood pressure and renal failure Monitor with Serial cardiac enzymes, Cardiology consulted in ED, No EKG changes, supportive care, / UTI (lower urinary tract infection) Treated with IV antibiotic therapy, IV fluids /Acute hypoxic Respiratory failure Likely due to underlying pneumonia Continue to provide Supplemental oxygen, nebulizer therapy, NIPPV as clinically indicated, pulse oximetry, /Moderate to severe protein calorie malnutrition - BMI 17.8, albumin 1.7 - consulted dietary, continue tube feeding for now hypernatremia, on hypotonic saline Hypokalemia/hyperkalemia, - k 5.4 today, ordered kayexalate -cont to monitor /Hypertension, placed on clonidine patch / DVT prophylaxis SCD to BLE while in bed, prophylactic heparin Disposition: SNF when isolation bed available and cleared by ID. Brief History: 67 YO Male [facility] Resident as [facility] with HTN, CVA, Obstructive Uropathy, Contracture, Decubitus Ulcers, DC, DM, OA, Seizure Disorder, COPD, Dementia, Debility, BPH presented to ED for evaluation, As per staff, the patient was found to have decreased responsiveness compared to baseline. Pt seen and evaluated in ED and found to have Sepsis secondary to UTI with concomitant RUL Pneumonia with a QSofa score of 8, GCS:3, MAP less than 70, Creatnine:2.1, Encephalopathy, and symptomatic anemia. Pt was admitted to ICU and initiated on Sepsis protocol. Now being treated for MRSA bacteremia. Need isolation bed at SNF. spiking fever today, ordered repeat blood cx Radiological data: Chest x-ray: Limited exam. Mild cardiomegaly. The lungs are grossly clear although there is poor visualization of the right upper lobe. 2-D echo: Preserved EF with abnormal left ventricular diastolic filling pressure Hospitalist Physical exam: GENERAL: Elderly male lying on bed appeared to be in no discomfort. It appears to be very lethargic and aphasic HEENT: Normocephalic. Atraumatic. No conjunctival congestion or icterus. Patient has moist mucous membranes. NECK: Supple. Trachea midline. CHEST/LUNGS: Clear to auscultated bilaterally, breathing nonlabored. No wheezes crackles or rhonchi. HEART/CARDIOVASCULAR: Regular in rate and rhythm. S1 and S2 positive. ABDOMEN: Abdomen is soft, nontender. Patient has normal bowel sounds. SKIN: There is no rash. Warm and dry. NEURO: Does not Follow command. MUSCULOSKELETAL: No joint effusion, generalized weakness unable to move extremities EXTRIMITY: No edema, no cyanosis or clubbing. PSYCH: Unable to assess. Subjective Date of service: 10/21/18 Principal diagnosis: Septic shock; Ac encephalopathy; Multiple decubitus ulcers; MÓNICA Interval history: Patient seen and examined. Medical records and medication list reviewed. No acute event overnight noted by the RN. Patient unable to provide any history with severe dementia Patient on nasal cannula , on tube feeding, no sign of active bleeding Discussed plan of care at bedside with RN. spiking fever Objective - Constitutional Vitals: Vital Signs - 12hr 10/21/18 10/21/18 10/21/18 04:12 09:34 12:53 Temperature 98.3 F 98.4 F Pulse Rate 86 78 Respiratory 20 18 Rate Blood Pressure 123/65 Blood Pressure 156/74 [Left] O2 Sat by Pulse 98 99 97 Oximetry 10/21/18 13:13 Temperature 98.4 F Pulse Rate Respiratory 18 Rate Blood Pressure 125/66 Blood Pressure [Left] O2 Sat by Pulse Oximetry - Labs CBC & Chem 7: 10/21/18 04:50 10/21/18 14:50 Labs: Abnormal lab results 10/21/18 10/21/18 10/21/18 Range/Units 00:26 04:50 04:50 RBC 2.97 L (3.65-5.03) M/mm3 Hgb 8.3 L (11.8-15.2) gm/dl Hct 25.4 L (35.5-45.6) % RDW 17.6 H (13.2-15.2) % Plt Count 586 H (140-440) K/mm3 Lymph % (Auto) 9.7 L (13.4-35.0) % [place] % (Auto) 16.0 H (0.0-7.3) % Lymph # 1.0 L (1.2-5.4) K/mm3 [place] # 1.7 H (0.0-0.8) K/mm3 Seg Neutrophils % 70.3 H (40.0-70.0) % Potassium 5.4 H D (3.6-5.0) mmol/L BUN 25 H (9-20) mg/dL Glucose 107 H (75-100) mg/dL POC Glucose 113 H (70-105) Alkaline Phosphatase 166 H (35-129) units/L Albumin 1.6 L (3.9-5) g/dL 10/21/18 10/21/18 Range/Units 05:44 11:22 RBC (3.65-5.03) M/mm3 Hgb (11.8-15.2) gm/dl Hct (35.5-45.6) % RDW (13.2-15.2) % Plt Count (140-440) K/mm3 Lymph % (Auto) (13.4-35.0) % [place] % (Auto) (0.0-7.3) % Lymph # (1.2-5.4) K/mm3 [place] # (0.0-0.8) K/mm3 Seg Neutrophils % (40.0-70.0) % Potassium (3.6-5.0) mmol/L BUN (9-20) mg/dL Glucose (75-100) mg/dL POC Glucose 122 H 109 H (70-105) Alkaline Phosphatase (35-129) units/L Albumin (3.9-5) g/dL
[2018-10-21] MEDS: TYLENOL FEEDTUBE PRN (20:57)
[2018-10-22] MEDS: HumaLOG SUB-Q SCH ×4 (00:32→18:07)
[2018-10-22 06:02] LABS: BUN/Creatinine Ratio 31; Blood Urea Nitrogen 28 mg/dL (9-20); Calcium 9.1 mg/dL (8.4-10.2); Hemolysis Index 4
[2018-10-22] MEDS: HCTZ PO SCH (10:48)
[2018-10-22] MEDS: PEPCID PO SCH (10:48)
[2018-10-22] MEDS: THERAGRAN Tab PO SCH (10:48)
[2018-10-22] MEDS: VITAMIN C FEEDTUBE SCH ×2 (10:49→23:34)
[2018-10-22] MEDS: VANCOMYCIN/NS 1 GM/250 ML 1 GM/250 ML BAG IV SCH (10:49)
[2018-10-22] MEDS: COREG PO SCH ×2 (10:49→23:35)
[2018-10-22] MEDS: HEPARIN SUB-Q SCH ×2 (10:49→23:36)
[2018-10-22] MEDS: KEPPRA PO SCH ×3 (10:49→23:50)
[2018-10-22] MEDS: SODIUM CHLORIDE FLUSH SYRINGE 10 ML IV SCH ×2 (10:50→23:35)
[2018-10-22] MEDS: ZINC SULFATE PO SCH (10:51)
--- NOTE | 2018-10-22 14:11 | Progress Note ---
Assessment and Plan Patient sleeping on 3L O2 at this time. O2 Sat 98%. Patient contracted. No acute respiratory distress. - Patient Problems (1) Acute respiratory failure with hypoxia Current Visit: Yes Status: Acute Plan to address problem: O2 3 litres via nasal canula. Albuterol aerosol treatments q 6 hours. Continue S/C Heparin Continue famotidine. (2) Sepsis Current Visit: Yes Status: Acute Qualifiers: Sepsis type: sepsis due to unspecified organism Qualified Code(s): A41.9 - Sepsis, unspecified organism Plan to address problem: Patient is on vancomycin. (3) Decubitus ulcer Current Visit: No Status: Acute Plan to address problem: Wound care consultation. Patient is on vancomycin. (4) Diabetes Current Visit: No Status: Acute Plan to address problem: Management as per primary care. (5) HTN (hypertension) Current Visit: No Status: Acute Qualifiers: Hypertension type: essential hypertension Qualified Code(s): I10 - Essential (primary) hypertension Plan to address problem: Management as per primary care. Subjective Date of service: 10/22/18 Principal diagnosis: Septic shock; Ac encephalopathy; Multiple decubitus ulcers; MÓNICA Interval history: Patient sleeping on 3L O2 at this time. O2 Sat 98%. Patient contracted. No acute respiratory distress. Objective Vital Signs - 12hr 10/22/18 10/22/18 10/22/18 03:44 08:01 09:51 Temperature 98.7 F 97.5 F L Pulse Rate 81 Respiratory 18 18 Rate Blood Pressure 122/69 122/65 Blood Pressure [Left] O2 Sat by Pulse 100 99 Oximetry 10/22/18 13:33 Temperature 97.1 F L Pulse Rate 79 Respiratory 18 Rate Blood Pressure Blood Pressure 154/56 [Left] O2 Sat by Pulse 98 Oximetry Constitutional: no acute distress, asleep, other (elderly looking AAM, normocephalic but contrated .) Eyes: non-icteric ENT: oropharynx moist Neck: no lymphadenopathy, no JVD, other (neck stiff and deviated to the right side) Effort: normal Ascultation: Bilateral: clear, diminished breath sounds, rhonchi (scant in bases) Percussion: Bilateral: not dull Cardiovascular: regular rate and rhythm Gastrointestinal: normoactive bowel sounds, soft, non-tender, non-distended, other (PEG tube) Integumentary: rash Extremities: no cyanosis, no edema, pulses normal, no ischemia or petechiae Neurologic: pupils equal and round, other (tardive dyskinetic movts) Psychiatric: other (unable to assess) CBC and BMP: 10/21/18 04:50 10/22/18 04:58 ABG, PT/INR, D-dimer: ABG POC ABG pH 7.480 (7.35-7.45) H 10/01/18 18:12 POC ABG pO2 64 (80-105) L 10/01/18 18:12 POC ABG HCO3 21.0 (22-26 mml/L) 10/01/18 18:12 POC ABG Total CO2 22 (23-27mmol/L) 10/01/18 18:12 POC ABG O2 Sat 94 10/01/18 18:12 Abnormal lab findings: Abnormal Labs 10/01/18 10/01/18 10/01/18 14:29 14:29 15:13 WBC 18.5 H RBC 2.68 L Hgb 7.3 L Hct 23.1 L MCH 27 L MCHC 31 L RDW 19.3 H Plt Count 522 H Lymph % (Auto) 6.7 L [place] % (Auto) Eos % (Auto) Lymph # [place] # 1.2 H Eos # Seg Neutrophils % 85.0 H Seg Neuts % (Manual) Lymphocytes % (Manual) Seg Neutrophils # 15.7 H Seg Neutrophils # Man Lymphocytes # (Manual) POC ABG pH POC ABG pO2 Sodium 148 H Potassium 3.3 L Chloride Carbon Dioxide BUN 98 H Creatinine 2.0 H Glucose 142 H POC Glucose Lactic Acid Calcium Phosphorus Magnesium AST Alkaline Phosphatase Troponin T 0.361 H* C-Reactive Protein Albumin Cholesterol 36 L LDL Cholesterol Direct 6 L HDL Cholesterol 21 L Urine WBC (Auto) > 182.0 H Urine Creatinine Vancomycin Trough Crossmatch 10/01/18 10/01/18 10/01/18 15:15 15:15 17:03 WBC RBC Hgb Hct MCH MCHC RDW Plt Count Lymph % (Auto) [place] % (Auto) Eos % (Auto) Lymph # [place] # Eos # Seg Neutrophils % Seg Neuts % (Manual) Lymphocytes % (Manual) Seg Neutrophils # Seg Neutrophils # Man Lymphocytes # (Manual) POC ABG pH POC ABG pO2 Sodium 150 H Potassium Chloride Carbon Dioxide BUN 94 H Creatinine 2.1 H Glucose 132 H POC Glucose Lactic Acid 2.60 H* 2.20 H* Calcium 7.8 L Phosphorus Magnesium AST 47 H Alkaline Phosphatase 179 H Troponin T C-Reactive Protein Albumin 2.1 L Cholesterol LDL Cholesterol Direct HDL Cholesterol Urine WBC (Auto) Urine Creatinine Vancomycin Trough Crossmatch 10/01/18 10/01/18 10/01/18 18:12 18:23 18:23 WBC RBC Hgb Hct MCH MCHC RDW Plt Count Lymph % (Auto) [place] % (Auto) Eos % (Auto) Lymph # [place] # Eos # Seg Neutrophils % Seg Neuts % (Manual) Lymphocytes % (Manual) Seg Neutrophils # Seg Neutrophils # Man Lymphocytes # (Manual) POC ABG pH 7.480 H POC ABG pO2 64 L Sodium Potassium Chloride Carbon Dioxide BUN Creatinine Glucose POC Glucose Lactic Acid Calcium Phosphorus Magnesium 3.30 H AST Alkaline Phosphatase Troponin T 0.378 H* C-Reactive Protein Albumin Cholesterol LDL Cholesterol Direct HDL Cholesterol Urine WBC (Auto) Urine Creatinine Vancomycin Trough Crossmatch 10/01/18 10/01/18 10/01/18 18:48 21:20 23:48 WBC RBC Hgb Hct MCH MCHC RDW Plt Count Lymph % (Auto) [place] % (Auto) Eos % (Auto) Lymph # [place] # Eos # Seg Neutrophils % Seg Neuts % (Manual) Lymphocytes % (Manual) Seg Neutrophils # Seg Neutrophils # Man Lymphocytes # (Manual) POC ABG pH POC ABG pO2 Sodium Potassium Chloride Carbon Dioxide BUN Creatinine Glucose POC Glucose Lactic Acid 2.30 H* 2.70 H* Calcium Phosphorus Magnesium AST Alkaline Phosphatase Troponin T 0.336 H* C-Reactive Protein Albumin Cholesterol LDL Cholesterol Direct HDL Cholesterol Urine WBC (Auto) Urine Creatinine Vancomycin Trough Crossmatch 10/01/18 10/02/18 10/02/18 23:48 04:45 04:45 WBC 18.3 H RBC 2.40 L Hgb 6.4 L Hct 20.4 L MCH 27 L MCHC 31 L RDW 19.1 H Plt Count 462 H Lymph % (Auto) [place] % (Auto) Eos % (Auto) Lymph # [place] # Eos # Seg Neutrophils % Seg Neuts % (Manual) 78.0 H Lymphocytes % (Manual) 5.0 L Seg Neutrophils # Seg Neutrophils # Man 14.3 H Lymphocytes # (Manual) 0.9 L POC ABG pH POC ABG pO2 Sodium Potassium Chloride Carbon Dioxide BUN Creatinine Glucose POC Glucose Lactic Acid 2.50 H* Calcium Phosphorus Magnesium AST Alkaline Phosphatase Troponin T C-Reactive Protein Albumin Cholesterol LDL Cholesterol Direct HDL Cholesterol Urine WBC (Auto) Urine Creatinine 74.7 H Vancomycin Trough Crossmatch 10/02/18 10/02/18 10/02/18 04:45 04:45 04:45 WBC RBC Hgb Hct MCH MCHC RDW Plt Count Lymph % (Auto) [place] % (Auto) Eos % (Auto) Lymph # [place] # Eos # Seg Neutrophils % Seg Neuts % (Manual) Lymphocytes % (Manual) Seg Neutrophils # Seg Neutrophils # Man Lymphocytes # (Manual) POC ABG pH POC ABG pO2 Sodium 148 H Potassium 3.1 L Chloride 108.6 H Carbon Dioxide 21 L BUN 89 H Creatinine 1.8 H Glucose POC Glucose Lactic Acid 2.10 H* Calcium 8.3 L Phosphorus 5.00 H Magnesium AST Alkaline Phosphatase 161 H Troponin T C-Reactive Protein Albumin 1.7 L Cholesterol LDL Cholesterol Direct HDL Cholesterol Urine WBC (Auto) Urine Creatinine Vancomycin Trough Crossmatch 10/02/18 10/02/18 10/03/18 09:46 11:47 00:03 WBC RBC Hgb Hct MCH MCHC RDW Plt Count Lymph % (Auto) [place] % (Auto) Eos % (Auto) Lymph # [place] # Eos # Seg Neutrophils % Seg Neuts % (Manual) Lymphocytes % (Manual) Seg Neutrophils # Seg Neutrophils # Man Lymphocytes # (Manual) POC ABG pH POC ABG pO2 Sodium Potassium Chloride Carbon Dioxide BUN Creatinine Glucose POC Glucose 112 H 106 H Lactic Acid Calcium Phosphorus Magnesium AST Alkaline Phosphatase Troponin T C-Reactive Protein Albumin Cholesterol LDL Cholesterol Direct HDL Cholesterol Urine WBC (Auto) Urine Creatinine Vancomycin Trough Crossmatch See Detail 10/03/18 10/03/18 10/03/18 06:06 06:45 06:45 WBC 17.3 H RBC 2.81 L Hgb 7.6 L Hct 24.1 L MCH 27 L MCHC 31 L RDW 18.4 H Plt Count 473 H Lymph % (Auto) 5.2 L [place] % (Auto) Eos % (Auto) 4.6 H Lymph # 0.9 L [place] # Eos # 0.8 H Seg Neutrophils % 85.7 H Seg Neuts % (Manual) Lymphocytes % (Manual) Seg Neutrophils # 14.8 H Seg Neutrophils # Man Lymphocytes # (Manual) POC ABG pH POC ABG pO2 Sodium 148 H Potassium Chloride 112.1 H Carbon Dioxide 21 L BUN 79 H Creatinine 1.7 H Glucose 116 H POC Glucose 130 H Lactic Acid Calcium 7.9 L Phosphorus Magnesium AST Alkaline Phosphatase Troponin T C-Reactive Protein Albumin Cholesterol LDL Cholesterol Direct HDL Cholesterol Urine WBC (Auto) Urine Creatinine Vancomycin Trough Crossmatch 10/03/18 10/03/18 10/03/18 11:50 17:42 23:20 WBC RBC Hgb Hct MCH MCHC RDW Plt Count Lymph % (Auto) [place] % (Auto) Eos % (Auto) Lymph # [place] # Eos # Seg Neutrophils % Seg Neuts % (Manual) Lymphocytes % (Manual) Seg Neutrophils # Seg Neutrophils # Man Lymphocytes # (Manual) POC ABG pH POC ABG pO2 Sodium Potassium Chloride Carbon Dioxide BUN Creatinine Glucose POC Glucose 126 H 118 H 106 H Lactic Acid Calcium Phosphorus Magnesium AST Alkaline Phosphatase Troponin T C-Reactive Protein Albumin Cholesterol LDL Cholesterol Direct HDL Cholesterol Urine WBC (Auto) Urine Creatinine Vancomycin Trough Crossmatch 10/04/18 10/04/18 10/04/18 05:22 07:00 07:00 WBC 14.8 H RBC 2.38 L Hgb 6.4 L Hct 20.5 L MCH 27 L MCHC 31 L RDW 18.2 H Plt Count Lymph % (Auto) 5.3 L [place] % (Auto) Eos % (Auto) 9.5 H Lymph # 0.8 L [place] # Eos # 1.4 H Seg Neutrophils % 81.2 H Seg Neuts % (Manual) Lymphocytes % (Manual) Seg Neutrophils # 12.0 H Seg Neutrophils # Man Lymphocytes # (Manual) POC ABG pH POC ABG pO2 Sodium 148 H Potassium Chloride 112.0 H Carbon Dioxide BUN 73 H Creatinine Glucose 105 H POC Glucose 115 H Lactic Acid Calcium 8.1 L Phosphorus Magnesium AST Alkaline Phosphatase Troponin T C-Reactive Protein Albumin 1.5 L Cholesterol LDL Cholesterol Direct HDL Cholesterol Urine WBC (Auto) Urine Creatinine Vancomycin Trough Crossmatch 10/04/18 10/04/18 10/05/18 12:35 18:28 04:20 WBC 14.1 H RBC 2.94 L Hgb 8.2 L Hct 25.2 L MCH MCHC RDW 17.9 H Plt Count Lymph % (Auto) 6.6 L [place] % (Auto) Eos % (Auto) 6.4 H Lymph # 0.9 L [place] # Eos # 0.9 H Seg Neutrophils % 82.7 H Seg Neuts % (Manual) Lymphocytes % (Manual) Seg Neutrophils # 11.6 H Seg Neutrophils # Man Lymphocytes # (Manual) POC ABG pH POC ABG pO2 Sodium Potassium Chloride Carbon Dioxide BUN Creatinine Glucose POC Glucose 109 H 109 H Lactic Acid Calcium Phosphorus Magnesium AST Alkaline Phosphatase Troponin T C-Reactive Protein Albumin Cholesterol LDL Cholesterol Direct HDL Cholesterol Urine WBC (Auto) Urine Creatinine Vancomycin Trough Crossmatch 10/05/18 10/05/18 10/05/18 04:20 11:45 17:32 WBC RBC Hgb Hct MCH MCHC RDW Plt Count Lymph % (Auto) [place] % (Auto) Eos % (Auto) Lymph # [place] # Eos # Seg Neutrophils % Seg Neuts % (Manual) Lymphocytes % (Manual) Seg Neutrophils # Seg Neutrophils # Man Lymphocytes # (Manual) POC ABG pH POC ABG pO2 Sodium Potassium Chloride 110.0 H Carbon Dioxide 21 L BUN 64 H Creatinine Glucose POC Glucose 118 H 113 H Lactic Acid Calcium 8.3 L Phosphorus Magnesium AST Alkaline Phosphatase Troponin T C-Reactive Protein Albumin Cholesterol LDL Cholesterol Direct HDL Cholesterol Urine WBC (Auto) Urine Creatinine Vancomycin Trough Crossmatch 10/06/18 10/06/18 10/06/18 05:15 05:15 05:35 WBC 12.3 H RBC 2.77 L Hgb 7.6 L Hct 24.1 L MCH MCHC RDW 18.1 H Plt Count Lymph % (Auto) 4.9 L [place] % (Auto) Eos % (Auto) 7.3 H Lymph # 0.6 L [place] # Eos # 0.9 H Seg Neutrophils % 81.1 H Seg Neuts % (Manual) Lymphocytes % (Manual) Seg Neutrophils # 10.0 H Seg Neutrophils # Man Lymphocytes # (Manual) POC ABG pH POC ABG pO2 Sodium 146 H Potassium Chloride 112.1 H Carbon Dioxide BUN 57 H Creatinine Glucose 120 H POC Glucose 115 H Lactic Acid Calcium Phosphorus Magnesium AST Alkaline Phosphatase Troponin T C-Reactive Protein Albumin Cholesterol LDL Cholesterol Direct HDL Cholesterol Urine WBC (Auto) Urine Creatinine Vancomycin Trough Crossmatch 10/06/18 10/06/18 10/06/18 12:31 18:44 Unknown WBC RBC Hgb Hct MCH MCHC RDW Plt Count Lymph % (Auto) [place] % (Auto) Eos % (Auto) Lymph # [place] # Eos # Seg Neutrophils % Seg Neuts % (Manual) Lymphocytes % (Manual) Seg Neutrophils # Seg Neutrophils # Man Lymphocytes # (Manual) POC ABG pH POC ABG pO2 Sodium Potassium Chloride Carbon Dioxide BUN Creatinine Glucose POC Glucose 150 H 125 H Lactic Acid Calcium Phosphorus Magnesium AST Alkaline Phosphatase Troponin T C-Reactive Protein Albumin Cholesterol LDL Cholesterol Direct HDL Cholesterol Urine WBC (Auto) Urine Creatinine Vancomycin Trough 23.5 H Crossmatch 10/07/18 10/07/18 10/07/18 05:06 05:06 08:34 WBC RBC Hgb 8.2 L Hct 25.8 L MCH MCHC RDW Plt Count Lymph % (Auto) [place] % (Auto) Eos % (Auto) Lymph # [place] # Eos # Seg Neutrophils % Seg Neuts % (Manual) Lymphocytes % (Manual) Seg Neutrophils # Seg Neutrophils # Man Lymphocytes # (Manual) POC ABG pH POC ABG pO2 Sodium Potassium Chloride 112.2 H Carbon Dioxide 21 L BUN 43 H Creatinine Glucose POC Glucose Lactic Acid Calcium 8.3 L Phosphorus Magnesium AST Alkaline Phosphatase Troponin T C-Reactive Protein Albumin Cholesterol LDL Cholesterol Direct HDL Cholesterol Urine WBC (Auto) Urine Creatinine Vancomycin Trough 23.0 H Crossmatch 10/08/18 10/08/18 10/08/18 05:07 05:07 11:09 WBC RBC 2.86 L Hgb 8.0 L Hct 24.5 L MCH MCHC RDW 18.7 H Plt Count Lymph % (Auto) 7.8 L [place] % (Auto) 8.2 H Eos % (Auto) 5.9 H Lymph # 0.8 L [place] # 0.9 H Eos # 0.6 H Seg Neutrophils % 77.8 H Seg Neuts % (Manual) Lymphocytes % (Manual) Seg Neutrophils # 8.2 H Seg Neutrophils # Man Lymphocytes # (Manual) POC ABG pH POC ABG pO2 Sodium Potassium 5.1 H Chloride 111.8 H Carbon Dioxide BUN 37 H Creatinine Glucose 101 H POC Glucose Lactic Acid Calcium 8.3 L Phosphorus Magnesium 2.50 H AST Alkaline Phosphatase Troponin T C-Reactive Protein 11.40 H Albumin Cholesterol LDL Cholesterol Direct HDL Cholesterol Urine WBC (Auto) Urine Creatinine Vancomycin Trough Crossmatch 10/09/18 10/10/18 10/10/18 05:48 09:02 09:02 WBC 13.6 H RBC 2.80 L Hgb 7.5 L Hct 23.9 L MCH 27 L MCHC 31 L RDW 18.9 H Plt Count Lymph % (Auto) 5.7 L [place] % (Auto) 8.5 H Eos % (Auto) Lymph # 0.8 L [place] # 1.1 H Eos # Seg Neutrophils % 83.9 H Seg Neuts % (Manual) Lymphocytes % (Manual) Seg Neutrophils # 11.4 H Seg Neutrophils # Man Lymphocytes # (Manual) POC ABG pH POC ABG pO2 Sodium Potassium 5.2 H 5.6 H Chloride 112.9 H 111.7 H Carbon Dioxide 21 L BUN 34 H 32 H Creatinine 0.7 L Glucose 109 H POC Glucose Lactic Acid Calcium Phosphorus Magnesium AST Alkaline Phosphatase Troponin T C-Reactive Protein Albumin Cholesterol LDL Cholesterol Direct HDL Cholesterol Urine WBC (Auto) Urine Creatinine Vancomycin Trough Crossmatch 10/11/18 10/11/18 10/11/18 04:41 04:41 09:09 WBC 11.4 H RBC 2.52 L Hgb 6.9 L Hct 22.0 L MCH 27 L MCHC 31 L RDW 19.0 H Plt Count Lymph % (Auto) [place] % (Auto) Eos % (Auto) Lymph # [place] # Eos # Seg Neutrophils % Seg Neuts % (Manual) Lymphocytes % (Manual) Seg Neutrophils # Seg Neutrophils # Man Lymphocytes # (Manual) POC ABG pH POC ABG pO2 Sodium 146 H Potassium Chloride 113.0 H Carbon Dioxide BUN 30 H Creatinine Glucose POC Glucose Lactic Acid Calcium 8.2 L Phosphorus Magnesium AST Alkaline Phosphatase Troponin T C-Reactive Protein Albumin Cholesterol LDL Cholesterol Direct HDL Cholesterol Urine WBC (Auto) Urine Creatinine Vancomycin Trough Crossmatch See Detail 10/11/18 10/12/18 10/12/18 23:29 04:22 04:22 WBC RBC 2.98 L Hgb 8.3 L Hct 25.5 L MCH MCHC RDW 17.7 H Plt Count Lymph % (Auto) [place] % (Auto) Eos % (Auto) Lymph # [place] # Eos # Seg Neutrophils % Seg Neuts % (Manual) Lymphocytes % (Manual) Seg Neutrophils # Seg Neutrophils # Man Lymphocytes # (Manual) POC ABG pH POC ABG pO2 Sodium 146 H 146 H Potassium Chloride 110.6 H 112.8 H Carbon Dioxide BUN 30 H 29 H Creatinine Glucose 102 H POC Glucose Lactic Acid Calcium 8.2 L Phosphorus 4.60 H Magnesium AST Alkaline Phosphatase Troponin T C-Reactive Protein Albumin Cholesterol LDL Cholesterol Direct HDL Cholesterol Urine WBC (Auto) Urine Creatinine Vancomycin Trough Crossmatch 10/13/18 10/13/18 10/14/18 23:00 23:00 00:15 WBC RBC 2.95 L Hgb 8.6 L Hct 25.4 L MCH MCHC RDW 18.1 H Plt Count Lymph % (Auto) [place] % (Auto) Eos % (Auto) Lymph # [place] # Eos # Seg Neutrophils % Seg Neuts % (Manual) Lymphocytes % (Manual) Seg Neutrophils # Seg Neutrophils # Man Lymphocytes # (Manual) POC ABG pH POC ABG pO2 Sodium Potassium 5.4 H Chloride 111.4 H Carbon Dioxide BUN 30 H Creatinine Glucose 107 H POC Glucose 151 H Lactic Acid Calcium Phosphorus Magnesium AST Alkaline Phosphatase Troponin T C-Reactive Protein Albumin Cholesterol LDL Cholesterol Direct HDL Cholesterol Urine WBC (Auto) Urine Creatinine Vancomycin Trough Crossmatch 10/14/18 10/14/18 10/15/18 07:18 18:33 05:32 WBC RBC Hgb Hct MCH MCHC RDW Plt Count Lymph % (Auto) [place] % (Auto) Eos % (Auto) Lymph # [place] # Eos # Seg Neutrophils % Seg Neuts % (Manual) Lymphocytes % (Manual) Seg Neutrophils # Seg Neutrophils # Man Lymphocytes # (Manual) POC ABG pH POC ABG pO2 Sodium 146 H Potassium 5.3 H 3.5 L D Chloride 112.3 H 111.1 H Carbon Dioxide BUN 29 H 28 H Creatinine Glucose 106 H 103 H POC Glucose 124 H Lactic Acid Calcium Phosphorus Magnesium AST Alkaline Phosphatase Troponin T C-Reactive Protein Albumin Cholesterol LDL Cholesterol Direct HDL Cholesterol Urine WBC (Auto) Urine Creatinine Vancomycin Trough Crossmatch 10/15/18 10/15/18 10/16/18 05:32 11:59 00:02 WBC RBC 2.93 L Hgb 8.2 L Hct 25.4 L MCH MCHC RDW 17.5 H Plt Count Lymph % (Auto) [place] % (Auto) Eos % (Auto) Lymph # [place] # Eos # Seg Neutrophils % Seg Neuts % (Manual) Lymphocytes % (Manual) Seg Neutrophils # Seg Neutrophils # Man Lymphocytes # (Manual) POC ABG pH POC ABG pO2 Sodium Potassium Chloride Carbon Dioxide BUN Creatinine Glucose POC Glucose 110 H 107 H Lactic Acid Calcium Phosphorus Magnesium AST Alkaline Phosphatase Troponin T C-Reactive Protein Albumin Cholesterol LDL Cholesterol Direct HDL Cholesterol Urine WBC (Auto) Urine Creatinine Vancomycin Trough Crossmatch 0510/16/18 10/17/18 05:02 23:27 06:00 WBC RBC Hgb Hct MCH MCHC RDW Plt Count Lymph % (Auto) [place] % (Auto) Eos % (Auto) Lymph # [place] # Eos # Seg Neutrophils % Seg Neuts % (Manual) Lymphocytes % (Manual) Seg Neutrophils # Seg Neutrophils # Man Lymphocytes # (Manual) POC ABG pH POC ABG pO2 Sodium Potassium 3.3 L Chloride 108.9 H 107.5 H Carbon Dioxide BUN 27 H 26 H Creatinine 0.7 L Glucose 118 H POC Glucose 113 H Lactic Acid Calcium Phosphorus Magnesium AST Alkaline Phosphatase Troponin T C-Reactive Protein Albumin Cholesterol LDL Cholesterol Direct HDL Cholesterol Urine WBC (Auto) Urine Creatinine Vancomycin Trough Crossmatch 10/17/18 10/17/18 10/18/18 11:50 16:36 00:50 WBC RBC Hgb Hct MCH MCHC RDW Plt Count Lymph % (Auto) [place] % (Auto) Eos % (Auto) Lymph # [place] # Eos # Seg Neutrophils % Seg Neuts % (Manual) Lymphocytes % (Manual) Seg Neutrophils # Seg Neutrophils # Man Lymphocytes # (Manual) POC ABG pH POC ABG pO2 Sodium Potassium Chloride Carbon Dioxide BUN Creatinine Glucose POC Glucose 108 H 106 H 111 H Lactic Acid Calcium Phosphorus Magnesium AST Alkaline Phosphatase Troponin T C-Reactive Protein Albumin Cholesterol LDL Cholesterol Direct HDL Cholesterol Urine WBC (Auto) Urine Creatinine Vancomycin Trough Crossmatch 10/18/18 10/18/18 10/18/18 06:26 12:54 17:54 WBC RBC Hgb Hct MCH MCHC RDW Plt Count Lymph % (Auto) [place] % (Auto) Eos % (Auto) Lymph # [place] # Eos # Seg Neutrophils % Seg Neuts % (Manual) Lymphocytes % (Manual) Seg Neutrophils # Seg Neutrophils # Man Lymphocytes # (Manual) POC ABG pH POC ABG pO2 Sodium Potassium Chloride Carbon Dioxide BUN Creatinine Glucose POC Glucose 112 H 113 H 108 H Lactic Acid Calcium Phosphorus Magnesium AST Alkaline Phosphatase Troponin T C-Reactive Protein Albumin Cholesterol LDL Cholesterol Direct HDL Cholesterol Urine WBC (Auto) Urine Creatinine Vancomycin Trough Crossmatch 10/18/18 10/19/18 10/19/18 23:38 06:13 12:22 WBC RBC Hgb Hct MCH MCHC RDW Plt Count Lymph % (Auto) [place] % (Auto) Eos % (Auto) Lymph # [place] # Eos # Seg Neutrophils % Seg Neuts % (Manual) Lymphocytes % (Manual) Seg Neutrophils # Seg Neutrophils # Man Lymphocytes # (Manual) POC ABG pH POC ABG pO2 Sodium Potassium Chloride Carbon Dioxide BUN Creatinine Glucose POC Glucose 107 H 121 H 120 H Lactic Acid Calcium Phosphorus Magnesium AST Alkaline Phosphatase Troponin T C-Reactive Protein Albumin Cholesterol LDL Cholesterol Direct HDL Cholesterol Urine WBC (Auto) Urine Creatinine Vancomycin Trough Crossmatch 10/19/18 10/20/18 10/20/18 18:13 00:18 12:12 WBC RBC Hgb Hct MCH MCHC RDW Plt Count Lymph % (Auto) [place] % (Auto) Eos % (Auto) Lymph # [place] # Eos # Seg Neutrophils % Seg Neuts % (Manual) Lymphocytes % (Manual) Seg Neutrophils # Seg Neutrophils # Man Lymphocytes # (Manual) POC ABG pH POC ABG pO2 Sodium Potassium Chloride Carbon Dioxide BUN Creatinine Glucose POC Glucose 106 H 113 H 120 H Lactic Acid Calcium Phosphorus Magnesium AST Alkaline Phosphatase Troponin T C-Reactive Protein Albumin Cholesterol LDL Cholesterol Direct HDL Cholesterol Urine WBC (Auto) Urine Creatinine Vancomycin Trough Crossmatch 10/21/18 10/21/18 10/21/18 00:26 04:50 04:50 WBC RBC 2.97 L Hgb 8.3 L Hct 25.4 L MCH MCHC RDW 17.6 H Plt Count 586 H Lymph % (Auto) 9.7 L [place] % (Auto) 16.0 H Eos % (Auto) Lymph # 1.0 L [place] # 1.7 H Eos # Seg Neutrophils % 70.3 H Seg Neuts % (Manual) Lymphocytes % (Manual) Seg Neutrophils # Seg Neutrophils # Man Lymphocytes # (Manual) POC ABG pH POC ABG pO2 Sodium Potassium 5.4 H D Chloride Carbon Dioxide BUN 25 H Creatinine Glucose 107 H POC Glucose 113 H Lactic Acid Calcium Phosphorus Magnesium AST Alkaline Phosphatase 166 H Troponin T C-Reactive Protein Albumin 1.6 L Cholesterol LDL Cholesterol Direct HDL Cholesterol Urine WBC (Auto) Urine Creatinine Vancomycin Trough Crossmatch 10/21/18 10/21/18 10/21/18 05:44 11:22 14:50 WBC RBC Hgb Hct MCH MCHC RDW Plt Count Lymph % (Auto) [place] % (Auto) Eos % (Auto) Lymph # [place] # Eos # Seg Neutrophils % Seg Neuts % (Manual) Lymphocytes % (Manual) Seg Neutrophils # Seg Neutrophils # Man Lymphocytes # (Manual) POC ABG pH POC ABG pO2 Sodium Potassium 5.4 H Chloride Carbon Dioxide BUN Creatinine Glucose POC Glucose 122 H 109 H Lactic Acid Calcium Phosphorus Magnesium AST Alkaline Phosphatase Troponin T C-Reactive Protein Albumin Cholesterol LDL Cholesterol Direct HDL Cholesterol Urine WBC (Auto) Urine Creatinine Vancomycin Trough Crossmatch 10/21/18 10/22/18 18:24 04:58 WBC RBC Hgb Hct MCH MCHC RDW Plt Count Lymph % (Auto) [place] % (Auto) Eos % (Auto) Lymph # [place] # Eos # Seg Neutrophils % Seg Neuts % (Manual) Lymphocytes % (Manual) Seg Neutrophils # Seg Neutrophils # Man Lymphocytes # (Manual) POC ABG pH POC ABG pO2 Sodium Potassium Chloride Carbon Dioxide BUN 28 H Creatinine Glucose 112 H POC Glucose 112 H Lactic Acid Calcium Phosphorus Magnesium AST Alkaline Phosphatase Troponin T C-Reactive Protein Albumin Cholesterol LDL Cholesterol Direct HDL Cholesterol Urine WBC (Auto) Urine Creatinine Vancomycin Trough Crossmatch Allied health notes reviewed: nursing
--- NOTE | 2018-10-22 14:37 | Progress Note ---
Assessment and Plan Assessment and plan: 67 YO Male Residential Facility Resident as [facility] with HTN, CVA, Obstructive Uropathy, Contracture, Decubitus Ulcers, CT, DM, OA, Seizure Disorder, COPD, Dementia, Debility, BPH presented to ED for evaluation, As per staff, the patient was found to have decreased responsiveness compared to baseline. Pt seen and evaluated in ED and found to have Sepsis secondary to UTI with concomitant RUL Pneumonia with a QSofa score of 8, GCS:3, MAP less than 70, Creatnine:2.1, Encephalopathy, and symptomatic anemia. Pt was admitted to ICU and initiated on Sepsis protocol. Now being treated for MRSA bacteremia. Need isolation bed at SNF. spiking fever yesterday, ordered repeat blood cx negative so far. / Severe sepsis with shock, POA due to bacteremia, UTI and RUL PNA continue Sepsis Protocol: IV antibiotic therapy, IVF resuscitation therapy, MRSA on Blood cultures, s/p IV pressors , ID consulted Per ID: - Continue vancomycin now for MRSA bacteremia. So far no clear source for MRSA bacteremia but suspected possible infected decubitus ulcer - treated with meropenem for 5 days to cover UTI as urine culture was not sent and he has h/o MDR GNRs - Anticipate discharge on Vancomycin 1 gm every 48 hours for total 6 weeks ending 11-12-18 - Again, this infection is incurable, patient's family has been advised hospice several times in the past but refused - New fevers today. ordered blood cultures, UA and urine cultures. Patient remains at high risk of recurrent infections. /MRSA bacteremia - possible source infected decubitus ulcer - cont vanc, ID following, 2d echo showed no vegetation /Decubitus ulcer, multiple with different stages - cont wound care, abx per ID - Could be the source for bacteremia, ID ordered for WBC scan but could not be done because of his chronic contracture/anatomical position /Anemia, s/p 2 units blood transfusion, likely AOCD and severe sepsis - stool for occult blood negative, cont to monitor / MÓNICA with vasomotor nephropathy renal function stable with IVF resuscitation therapy, monitor uop q shift, nephrology consulted in ED. /Right upper lobe Pneumonia, suspect aspiration Treated with IV antibiotic therapy, supplemental oxygen, pulse oximetry, / Elevated troponin Likely due to sepsis with low blood pressure and renal failure Monitor with Serial cardiac enzymes, Cardiology consulted in ED, No EKG changes, supportive care, / UTI (lower urinary tract infection) Treated with IV antibiotic therapy, IV fluids /Acute hypoxic Respiratory failure Likely due to underlying pneumonia Continue to provide Supplemental oxygen, nebulizer therapy, NIPPV as clinically indicated, pulse oximetry, /Moderate to severe protein calorie malnutrition - BMI 17.8, albumin 1.7 - consulted dietary, continue tube feeding for now hypernatremia, on hypotonic saline Hypokalemia/hyperkalemia, - k 5.4 today, ordered kayexalate -cont to monitor /Hypertension, placed on clonidine patch / DVT prophylaxis SCD to BLE while in bed, prophylactic heparin Disposition: SNF when isolation bed available and cleared by ID. History Interval history: Patient was seen and evaluated this morning, patient was aphasic, no fever episode overnight. ID wants to keep the patient another day bacause he spiked fever yesterday. Hospitalist Physical - Physical exam Narrative exam: Patient is aphasic. The patient appeared well nourished and normally developed. Vital signs as documented. Head exam is unremarkable. No scleral icterus . Neck is without jugular venous distension, thyromegaly, or carotid bruits. Lungs are clear to auscultation. Cardiac exam reveals regular rate and Rhythm. Abdominal exam reveals normal bowel sounds. Extremities are contracted. PRIVATE CHEF: Alert and oriented 3. No focal weakness. - Constitutional Vitals: Temp Pulse Resp BP Pulse Ox 97.1 F L 79 18 154/56 98 10/22/18 13:33 10/22/18 13:33 10/22/18 13:33 10/22/18 13:33 10/22/18 13:33 General appearance: Present: no acute distress Results - Labs CBC & Chem 7: 10/21/18 04:50 10/22/18 04:58 Labs: Laboratory Last Values WBC 10.5 K/mm3 (4.5-11.0) 10/21/18 04:50 RBC 2.97 M/mm3 (3.65-5.03) L 10/21/18 04:50 Hgb 8.3 gm/dl (11.8-15.2) L 10/21/18 04:50 Hct 25.4 % (35.5-45.6) L 10/21/18 04:50 MCV 86 fl (84-94) 10/21/18 04:50 MCH 28 pg (28-32) 10/21/18 04:50 MCHC 33 % (32-34) 10/21/18 04:50 RDW 17.6 % (13.2-15.2) H 10/21/18 04:50 Plt Count 586 K/mm3 (140-440) H 10/21/18 04:50 Lymph % (Auto) 9.7 % (13.4-35.0) L 10/21/18 04:50 [place] % (Auto) 16.0 % (0.0-7.3) H 10/21/18 04:50 Eos % (Auto) 3.4 % (0.0-4.3) 10/21/18 04:50 Baso % (Auto) 0.6 % (0.0-1.8) 10/21/18 04:50 Lymph # 1.0 K/mm3 (1.2-5.4) L 10/21/18 04:50 [place] # 1.7 K/mm3 (0.0-0.8) H 10/21/18 04:50 Eos # 0.4 K/mm3 (0.0-0.4) 10/21/18 04:50 Baso # 0.1 K/mm3 (0.0-0.1) 10/21/18 04:50 Add Manual Diff Complete 10/02/18 04:45 Total Counted 100 10/02/18 04:45 Seg Neutrophils % 70.3 % (40.0-70.0) H 10/21/18 04:50 Seg Neuts % (Manual) 78.0 % (40.0-70.0) H 10/02/18 04:45 14.0 % 10/02/18 04:45 5.0 % (13.4-35.0) L 10/02/18 04:45 Reactive Lymphs % (Man) 0 % 10/02/18 04:45 2.0 % (0.0-7.3) 10/02/18 04:45 1.0 % (0.0-4.3) 10/02/18 04:45 0 % (0.0-1.8) 10/02/18 04:45 0 % 10/02/18 04:45 0 % 10/02/18 04:45 0 % 10/02/18 04:45 0 % 10/02/18 04:45 Nucleated RBC % Not Reportable 10/02/18 04:45 Seg Neutrophils # 7.3 K/mm3 (1.8-7.7) 10/21/18 04:50 Seg Neutrophils # Man 14.3 K/mm3 (1.8-7.7) H 10/02/18 04:45 Band Neutrophils # 2.6 K/mm3 10/02/18 04:45 0.9 K/mm3 (1.2-5.4) L 10/02/18 04:45 Abs React Lymphs (Man) 0.0 K/mm3 10/02/18 04:45 0.4 K/mm3 (0.0-0.8) 10/02/18 04:45 0.2 K/mm3 (0.0-0.4) 10/02/18 04:45 0.0 K/mm3 (0.0-0.1) 10/02/18 04:45 0.0 K/mm3 10/02/18 04:45 0.0 K/mm3 10/02/18 04:45 0.0 K/mm3 10/02/18 04:45 Blast Cells # 0.0 K/mm3 10/02/18 04:45 WBC Morphology Not Reportable 10/02/18 04:45 WBC Morphology TNR 10/02/18 04:45 Hypersegmented Neuts Not Reportable 10/02/18 04:45 Hyposegmented Neuts Not Reportable 10/02/18 04:45 Hypogranular Neuts Not Reportable 10/02/18 04:45 Not Reportable 10/02/18 04:45 Not Reportable 10/02/18 04:45 Not Reportable 10/02/18 04:45 Not Reportable 10/02/18 04:45 Not Reportable 10/02/18 04:45 Not Reportable 10/02/18 04:45 Consistent w auto 10/02/18 04:45 Not Reportable 10/02/18 04:45 Plt Clumps, EDTA Not Reportable 10/02/18 04:45 Not Reportable 10/02/18 04:45 Not Reportable 10/02/18 04:45 Not Reportable 10/02/18 04:45 Plt Morphology Comment Not Reportable 10/02/18 04:45 RBC Morphology Not Reportable 10/02/18 04:45 Dimorphic RBCs Not Reportable 10/02/18 04:45 Few 10/02/18 04:45 Not Reportable 10/02/18 04:45 Not Reportable 10/02/18 04:45 1+ 10/02/18 04:45 Not Reportable 10/02/18 04:45 2+ 10/02/18 04:45 Not Reportable 10/02/18 04:45 Not Reportable 10/02/18 04:45 Not Reportable 10/02/18 04:45 Not Reportable 10/02/18 04:45 Not Reportable 10/02/18 04:45 Not Reportable 10/02/18 04:45 Not Reportable 10/02/18 04:45 Not Reportable 10/02/18 04:45 Not Reportable 10/02/18 04:45 Not Reportable 10/02/18 04:45 Not Reportable 10/02/18 04:45 Not Reportable 10/02/18 04:45 Not Reportable 10/02/18 04:45 Acanthocytes (Spur) Not Reportable 10/02/18 04:45 Rouleaux Not Reportable 10/02/18 04:45 Not Reportable 10/02/18 04:45 Not Reportable 10/02/18 04:45 Not Reportable 10/02/18 04:45 Not Reportable 10/02/18 04:45 Hem Pathologist Commnt No 10/02/18 04:45 POC ABG pH 7.480 (7.35-7.45) H 10/01/18 18:12 POC ABG pO2 64 (80-105) L 10/01/18 18:12 POC ABG HCO3 21.0 (22-26 mml/L) 10/01/18 18:12 POC ABG Total CO2 22 (23-27mmol/L) 10/01/18 18:12 POC ABG O2 Sat 94 10/01/18 18:12 POC ABG Base Excess -3 ((-2) - (+3)mmol/L) 10/01/18 18:12 32 % 10/01/18 18:12 Sodium 139 mmol/L (137-145) 10/22/18 04:58 Potassium 5.0 mmol/L (3.6-5.0) 10/22/18 04:58 Chloride 105.9 mmol/L (98-107) 10/22/18 04:58 Carbon Dioxide 24 mmol/L (22-30) 10/22/18 04:58 14 mmol/L 10/22/18 04:58 BUN 28 mg/dL (9-20) H 10/22/18 04:58 0.9 mg/dL (0.8-1.5) 10/22/18 04:58 Estimated GFR > 60 ml/min 10/22/18 04:58 31 % 10/22/18 04:58 Glucose 112 mg/dL (75-100) H 10/22/18 04:58 POC Glucose 105 (70-105) 10/21/18 21:26 Lactic Acid 1.70 mmol/L (0.7-2.0) 10/03/18 22:45 Calcium 9.1 mg/dL (8.4-10.2) 10/22/18 04:58 Phosphorus 4.20 mg/dL (2.5-4.5) 10/21/18 04:50 Magnesium 2.20 mg/dL (1.7-2.3) 10/21/18 04:50 0.20 mg/dL (0.1-1.2) 10/21/18 04:50 < 0.2 mg/dL (0-0.2) 10/04/18 07:00 0.0 mg/dL 10/04/18 07:00 AST 20 units/L (5-40) 10/21/18 04:50 ALT 10 units/L (7-56) 10/21/18 04:50 166 units/L (35-129) H 10/21/18 04:50 0.336 ng/mL (0.00-0.029) H* 10/01/18 23:48 11.40 mg/dL (0.00-1.30) H 10/08/18 05:07 7.5 g/dL (6.3-8.2) 10/21/18 04:50 1.6 g/dL (3.9-5) L 10/21/18 04:50 0.3 % 10/21/18 04:50 Triglycerides 111 mg/dL (2-149) 10/01/18 14:29 Cholesterol 36 mg/dL (50-199) L 10/01/18 14:29 6 mg/dL (50-130) L 10/01/18 14:29 21 mg/dL (40-59) L 10/01/18 14:29 1.71 % 10/01/18 14:29 Free PSA See scanned result 10/01/18 17:53 % Free PSA Calc See scanned result 10/01/18 17:53 Total PSA See scanned result 10/01/18 17:53 TSH 0.870 mlU/mL (0.270-4.200) 10/01/18 18:23 Free T4 1.05 ng/dL (0.76-1.46) 10/01/18 18:23 [place] (Yellow) 10/01/18 15:13 Cloudy (Clear) 10/01/18 15:13 5.0 (5.0-7.0) 10/01/18 15:13 Ur Specific [place] 1.023 (1.003-1.030) 10/01/18 15:13 100 mg/dl mg/dL (Negative) 10/01/18 15:13 Neg mg/dL (Negative) 10/01/18 15:13 Tr mg/dL (Negative) 10/01/18 15:13 Neg (Negative) 10/01/18 15:13 Neg (Negative) 10/01/18 15:13 Neg (Negative) 10/01/18 15:13 < 2.0 mg/dL (<2.0) 10/01/18 15:13 Ur Leukocyte Esterase Lg (Negative) 10/01/18 15:13 > 182.0 /HPF (0.0-6.0) H 10/01/18 15:13 12.0 /HPF (0.0-6.0) 10/01/18 15:13 4+ /HPF (Negative) 10/01/18 15:13 3+ /HPF 10/01/18 15:13 74.7 mg/dL (0.1-20.0) H 10/02/18 04:45 21 mmol/L 10/02/18 04:45 Vancomycin Trough 15.5 ug/mL (5.0-20.0) 10/22/18 04:58 Blood Type O POSITIVE 10/11/18 09:09 Antibody Screen Negative 10/11/18 09:09 Crossmatch See Detail 10/11/18 09:09 Active Medications - Current Medications Current Medications: Generic Name Dose Route Start Last Admin Trade Name Freq PRN Reason Stop Dose Admin Acetaminophen 650 mg 10/01/18 15:32 10/21/18 20:57 Tylenol FEEDTUBE 650 mg Q6H PRN Administration Pain, Moderate (4-6) Albuterol 2.5 mg 10/01/18 17:40 10/04/18 21:02 Proventil IH 2.5 mg Q3HRT PRN Administration Shortness Of Breath Lipase/Protease/Amylase 1 each 10/15/18 10:[address] 10,500 Unit FEEDTUBE PRN PRN For Clogged Feeding Tube Ascorbic Acid 500 mg 10/04/18 10:00 10/22/18 10:49 Vitamin C FEEDTUBE 500 mg BID NORA Administration Atorvastatin Calcium 40 mg 10/01/18 22:00 10/21/18 21:05 Lipitor FEEDTUBE 40 mg QHS NORA Administration Carvedilol 6.25 mg 10/13/18 22:00 10/22/18 10:49 Coreg PO 6.25 mg BID NORA Administration Clonidine HCl 0.2 mg 10/08/18 10:00 10/15/18 09:48 Catapres-Tts Patch TD 0.2 mg Tu NORA Administration Famotidine 20 mg 10/03/18 12:00 10/22/18 10:48 Pepcid PO 20 mg DAILY NORA Administration Heparin Sodium (Porcine) 5,000 unit 10/01/18 22:00 10/22/18 10:49 Heparin SUB-Q 5,000 unit Q12HR NORA Administration Hydralazine HCl 10 mg 10/07/18 15:12 10/07/18 18:00 Apresoline IV 10 mg Q4HR PRN Administration Blood Pressure Hydrochlorothiazide 25 mg 10/11/18 09:00 10/22/18 10:48 Hctz PO 25 mg QDAY NORA Administration Vancomycin HCl 1 gm in 250 mls @ 167.007 mls/hr 10/08/18 10:00 10/22/18 10:49 Vancomycin/Ns 1 Gm/250 Ml IV 11/12/18 09:59 167.007 mls/hr Q48HR NORA Administration Insulin Human Lispro 0 unit 10/13/18 12:00 10/22/18 00:32 Humalog SUB-Q Not Given Q6HR NORA Protocol Levetiracetam 500 mg 10/01/18 22:00 10/22/18 10:49 Keppra PO 500 mg BID NORA Administration Multivitamins 1 each 10/02/18 10:00 10/22/18 10:48 Theragran Tab PO 1 each DAILY NORA Administration Oxycodone/Acetaminophen 1 tab 10/02/18 20:16 10/08/18 23:23 Percocet 5/325 PO 1 tab Q4H PRN Administration Pain, Moderate (4-6) Simple Syrup 15 ml 10/15/18 10:41 Simple Syrup FEEDTUBE PRN PRN Hypoglycemia Simple Syrup 30 ml 10/15/18 10:41 Simple Syrup FEEDTUBE PRN PRN Hypoglycemia Sodium Bicarbonate 325 mg 10/15/18 10:41 Sodium Bicarbonate FEEDTUBE PRN PRN For Clogged Feeding Tube Sodium Chloride 10 ml 10/01/18 22:00 10/22/18 10:50 Sodium Chloride Flush Syringe 10 Ml IV 10 ml BID NORA Administration Sodium Chloride 10 ml 10/01/18 17:40 10/05/18 21:30 Sodium Chloride Flush Syringe 10 Ml IV 10 ml PRN PRN Administration LINE FLUSH Zinc Sulfate 220 mg 10/02/18 10:00 10/22/18 10:51 Zinc Sulfate PO 220 mg QDAY NORA Administration Nutrition/Malnutrition Assess - Dietary Evaluation Nutrition/Malnutrition Findings: Nutrition Notes Start: 10/02/18 10:21 Freq: Status: Active Protocol: Document 10/15/18 14:55 CHANDRAKANT (Rec: 10/15/18 15:20 CHANDRAKANT [email or web address]) Nutrition Notes Initial or Follow up Reassessment Current Diagnosis Decubitus(Pressure Ulcer), Diabetes,Sepsis,Hypertension, Stroke,Hyperlipidemia Current Diet Glucerna 1.2 at 60 ml/hr Labs/Tests Na 146 K 3.5 BUN 28 Pertinent Medications Reviewed Height 5 ft 8 in Weight 68.4 kg [place] Body Weight (kg) 70.00 BMI 22.9 Subjective/Other Information TF infusing at goal rate. Pt tolerating TF; per RN, pt receives 200ml water flush q4h . Percent of energy/protein needs met: 100% energy and pro Burn Absent Trauma Absent #1 Nutrition Diagnosis Malnutrition Diagnosis Progress(for reassessment Continues documentation) Is patient on ventilator? No Is Patient Ambulatory and/or Out of Bed No REE-([place]-confined to bed) 1719.912 Kcal/Kg value to use for calculation 30 Approximate Energy Requirements Using 2051 kcal/Kg Additional Notes Pro needs 1.25-1.5g/k- 103g/day Fluid needs 1ml/kcal Nutrition Intervention Nutrition Support: Glucerna 1.2 at 60ml/hr Flush with 200 ml q4h until hypernatremia resolved. Kcal 1,728 Protein (gm) 86 Fluid (mL) 1,159 Goal #1 TF tolerance Goal #2 TF to meet 90-100% energy and pro needs Goal #3 Wound healing Anticipated Discharge Needs: Continue TF Follow-Up By: 10/22/18 Additional Comments F/U: stable TF, wt
--- NOTE | 2018-10-22 15:34 | Progress Note ---
Assessment and Plan Cultures: Blood culture 10/01/2018 MRSA 2 of 4. Blood culture 10/03/2018 no growth Blood culture 10/08/2018 no growth Blood culture 10/11/2018 no growth 10/21/2018 Blood culture: in process Assessment: 67 y/o male with hsitory of HTN, CVA, Obstructive Uropathy, Contracture, Multiple Decubitus Ulcers, [place], DM, OA, Seizure Disorder, COPD, Dementia, Debility, BPH, well known to ID due to multiple admissions from ducubitus ulcers infections, resident of [facility], admitted on due to decreased responsiv eness compared to baseline and hypotension SBP in 60's: 1) Severe Sepsis with septic shock: Etiology most likely Staph bacteremia. 2) MRSA bacteremia: source likely multiple decubitus ulcers. Blood culture 10/01/2018 GPC in clusters 2 of 4. TTE no negative. - WBC tagged scan ordered - Unable to perform because of contractions. Best to treat for a 6 week duration. 3) Recent septic shock due to polymicrobial bacteremia ESBL and carbapenem resistant E coli, MDR Proteus, Strep and E faecalis on 07/29/2018 probably from multiple infected decubitus ulcers and less likely UTI. Repeat blood cultures 07/31/2018 showed same MDR E coli 1 of 4 bottles then 08/06/2018 blood cultures showed no growth. Patient was treated with Vabomere for 14 days. 4) Multiple infected decubitus ulcers: currently active large left trochanteric with bone exposure and sacral with bone exposure. His prognosis has been poor and hospice has been recommended several times in the past but family has declined. declined. His wounds are not curable considering his contractures, bed bound status and poor nutritional status. There was also suspicion of septic arthritis of left hip from decubitus ulcer. 5) Recurrent CAUTI 6) Acute encephalopathy: resolved. 7) MÓNICA: resolved with high K. 8) New fever: ? resolved. Likely related to multiple skin wounds v/s episode of aspiration. Recommendations: - f/u blood cultures and fever curve - OK to discharge if blood cultures negative and no more fever - Continue wound care - Continue IV vancomycin for MRSA bacteremia, target trough 10-20 mcg/ml. Currently on IV Vancomycin 1 gm every 48 hours for total 6 weeks ending 11-12-18 - Again, this infection is incurable, patient's family has been advised hospice several times in the past but refused - continue contact isolation, patient colonized with multiple MDROs - CM orders for IV abx already placed d/w Dr. Irving. MD [facility] C: [phone] O: [phone] F: [phone] Subjective Date of service: 10/22/18 Principal diagnosis: Septic shock; Ac encephalopathy; Multiple decubitus ulcers; MÓNICA Interval history: No fever. Poor historian. Denies any distress. Lying in bed, multiple contractures and wounds. Has condom cath with clear urine. Objective - Exam Narrative Exam: General appearance: Alert, in no distress. Eyes: anicteric sclerae, moist conjunctivae; PERRLA HENT: Atraumatic; oropharynx limited Neck: Trachea midline; supple Lungs: few scattered rhonchi CV: S1, S2 heard, no murmur GI: Soft, non-tender; bowel sounds + PEG in place. Condom cath + Extremities: altaf contracted legs, multiple wounds covered with dressings. Skin: multiple skin tears. large left greater trochanter wound, sacral decubitus + Psych: no agitated Neuro: alert, awake, not agitated - Constitutional Vitals: Vital Signs Temp Pulse Resp BP Pulse Ox 97.1 F L 79 18 154/56 98 10/22/18 13:33 10/22/18 13:33 10/22/18 13:33 10/22/18 13:33 10/22/18 13:33 Temperature -Last 24 Hours Temperature 97.1 F Temperature 97.5 F Temperature 98.7 F Temperature 98.9 F Temperature 101.0 F Temperature 97.1 F - Labs CBC & Chem 7: 10/21/18 04:50 10/22/18 04:58 Labs: Abnormal lab results 10/21/18 10/22/18 Range/Units 18:24 04:58 BUN 28 H (9-20) mg/dL Glucose 112 H (75-100) mg/dL POC Glucose 112 H (70-105)
[2018-10-22] MEDS: TYLENOL FEEDTUBE PRN (23:38)
[2018-10-23] MEDS: HumaLOG SUB-Q SCH ×3 (00:29→11:58)
[2018-10-23] MEDS: CATAPRES-TTS PATCH TD SCH (06:39)
--- NOTE | 2018-10-23 08:55 | Progress Note ---
Assessment and Plan Cultures: Blood culture 10/01/2018 MRSA 2 of 4. Blood culture 10/03/2018 no growth Blood culture 10/08/2018 no growth Blood culture 10/11/2018 no growth 10/21/2018 Blood culture: no growth thus far Assessment: 67 y/o male with hsitory of HTN, CVA, Obstructive Uropathy, Contracture, Multiple Decubitus Ulcers, [place], DM, OA, Seizure Disorder, COPD, Dementia, Debility, BPH, well known to ID due to multiple admissions from ducubitus ulcers infections, resident of [facility], admitted on due to decreased r esponsiveness compared to baseline and hypotension SBP in 60's: 1) Severe Sepsis with septic shock: Etiology most likely Staph bacteremia. 2) MRSA bacteremia: source likely multiple decubitus ulcers. Blood culture 10/01/2018 GPC in clusters 2 of 4. TTE no negative. - WBC tagged scan ordered - Unable to perform because of contractions. Best to treat for a 6 week duration. 3) Recent septic shock due to polymicrobial bacteremia ESBL and carbapenem resistant E coli, MDR Proteus, Strep and E faecalis on 07/29/2018 probably from multiple infected decubitus ulcers and less likely UTI. Repeat blood cultures 07/31/2018 showed same MDR E coli 1 of 4 bottles then 08/06/2018 blood cultures showed no growth. Patient was treated with Vabomere for 14 days. 4) Multiple infected decubitus ulcers: currently active large left trochanteric with bone exposure and sacral with bone exposure. His prognosis has been poor and hospice has been recommended several times in the past but family has declined. declined. His wounds are not curable considering his contractures, bed bound status and poor nutritional status. There was also suspicion of septic arthritis of left hip from decubitus ulcer. 5) Recurrent CAUTI 6) Acute encephalopathy: resolved. 7) MÓNICA: resolved with high K. 8) New fever: resolved. No fever in > 24 hours. Likely related to multiple skin wounds v/s episode of aspiration. Recommendations: - f/u blood cultures and fever curve - OK to discharge if blood cultures negative and no more fever - Continue wound care - Continue IV vancomycin for MRSA bacteremia, target trough 10-20 mcg/ml. Currently on IV Vancomycin 1 gm every 48 hours for total 6 weeks ending 11-12-18 - Again, this infection is incurable, patient's family has been advised hospice several times in the past but refused - continue contact isolation, patient colonized with multiple MDROs - CM orders for IV abx already placed [facility] M: [phone] O:[phone] Subjective Date of service: 10/23/18 Principal diagnosis: Septic shock; Ac encephalopathy; Multiple decubitus ulcers; MÓNICA Interval history: Patient seen and examined. No generalized pain reported. No fevers. Objective - Exam Narrative Exam: General appearance: Alert, in no distress. Eyes: anicteric sclerae, moist conjunctivae; PERRLA HENT: Atraumatic; oropharynx limited Neck: Trachea midline; supple Lungs: scattered rhonchi CV: S1, S2 heard, no murmur GI: Soft, non-tender; bowel sounds + PEG in place Extremities: altaf contracted legs, multiple wounds covered with dressings. Skin: multiple skin tears. large left greater trochanter wound, sacral decubitus + Psych: not agitated Neuro: alert, awake, not agitated - Constitutional Vitals: Vital Signs Temp Pulse Resp BP Pulse Ox 99.9 F H 89 20 127/60 97 10/23/18 07:35 10/23/18 08:35 10/23/18 08:35 10/23/18 07:35 10/23/18 08:35 Temperature -Last 24 Hours Temperature 99.9 F Temperature 97.5 F Temperature 99.8 F Temperature 99.0 F Temperature 97.5 F Temperature 97.1 F - Labs CBC & Chem 7: 10/21/18 04:50 10/22/18 04:58 Labs: Abnormal lab results 10/22/18 10/23/18 Range/Units 08:03 06:08 POC Glucose 109 H 122 H (70-105)
[2018-10-23] MEDS: HEPARIN SUB-Q SCH (09:16)
[2018-10-23] MEDS: PEPCID PO SCH (09:19)
[2018-10-23] MEDS: ZINC SULFATE PO SCH (09:19)
[2018-10-23] MEDS: KEPPRA PO SCH (09:19)
[2018-10-23] MEDS: HCTZ PO SCH (09:20)
[2018-10-23] MEDS: COREG PO SCH (09:20)
[2018-10-23] MEDS: VITAMIN C FEEDTUBE SCH (09:20)
[2018-10-23] MEDS: SODIUM CHLORIDE FLUSH SYRINGE 10 ML IV SCH (09:21)
[2018-10-23] MEDS ORDERED: Centrum Liq PO SCH (10:00)
--- NOTE | 2018-10-23 11:02 | Discharge Summary ---
Providers - Providers Date of Admission: 10/01/18 17:40 Attending physician: CAROLINE TRAMMELL MD 10/01/18 19:30 Consult to Physician [CONS] Routine Comment: Consulting Provider: MP REYES Physician Instructions: Reason For Exam: ARF 10/02/18 02:41 Consult to Wound/ET Nurse [CONS] Urgent Reason For Exam: wound eval 10/02/18 09:05 Consult to Physician [CONS] Routine Comment: Consulting Provider: KASIA BAKER Physician Instructions: Reason For Exam: critical care management 10/02/18 09:52 Consult to Physician [CONS] Routine Comment: Consulting Provider: PENNY IYER Physician Instructions: Reason For Exam: Severe sepsis, h/o MDRO E.coli, antibiotic mgt 10/02/18 09:53 PICC Line Insertion [Consult to PICC Line RN] [CONS] Urgent Reason For Exam: severe sepsis secondary to UTI, on vasopressors Type Line:: PICC 10/09/18 17:06 Consult to Case Management [CONS] Urgent Services Needed at Discharge: Other Notified:: no Additional Physician Instructions: [facility] ([facility] M [phone] O [phone] F [phone] OUTPATIENT PARENTERAL ANTIBIOTIC THERAPY ORDERS Diagnoses: MRSA bacteremia Antimicrobial administration: Anticipate discharge on Vancomycin 1 gm every 48 hours for total 6 weeks ending 11-12-18. Remove PICC line after last dose unless otherwise instructed. Lines: PICC Lab monitoring: CBC, BUN, Creatinine, ALT, AST, CRP vancomycin trough once a week preferly on Sunday morning. Please fax results to [phone] and call [phone] for critical lab results. Jacquie Jean Baptiste NP/Penny Wynne MD Date: 10/09/18 10/09/18 17:08 Consult to PICC Line RN [CONS] Routine Reason For Exam: OPAT Type Line:: PICC 10/15/18 00:59 Consult to Physician [CONS] Routine Comment: Consulting Provider: FLORENCIO ORTEGA Physician Instructions: Reason For Exam: PICC line placement in neck 10/15/18 09:33 Consult to Dietitian/Nutrition [CONS] Routine Physician Instructions: Assess nutrtn needs, initiate, modify, manage TF Reason For Exam: Reason for Consult: Write/Manage Tube Feeding Reason for Consult: Write/Manage Tube Feeding Hospitalization Reason for admission: Septic shock, multiple decubitus ulcer, MRSA bacteremia Condition: Stable Hospital course: 67 YO Male Long Term Facility Resident as [facility] with HTN, CVA, Obstructive Uropathy, Contracture, Decubitus Ulcers, UT, DM, OA, Seizure Disorder, COPD, Dementia, Debility, BPH presented to ED for evaluation, As per staff, the patient was found to have decreased responsiveness compared to baseline. Pt seen and evaluated in ED and found to have Sepsis secondary to UTI with concomitant RUL Pneumonia with a QSofa score of 8, GCS:3, MAP less than 70, Creatnine:2.1, Encephalopathy, and symptomatic anemia. Pt was admitted to ICU and initiated on Sepsis protocol. Now being treated for MRSA bacteremia. Need isolation bed at [facility]. spiking fever yesterday, ordered repeat blood cx negative so far. Severe sepsis with shock, POA due to bacteremia, UTI and RUL PNA Treated with Sepsis Protocol: IV antibiotic therapy, IVF resuscitation therapy, MRSA on Blood cultures, s/p IV pressors , ID consulted and BP is holding. Per ID: Continue vancomycin now for MRSA bacteremia. So far no clear source for MRSA bacteremia but suspected possible infected decubitus ulcer treated with meropenem for 5 days to cover UTI as urine culture was not sent and he has h/o MDR GNRs discharge on Vancomycin 1 gm every 48 hours for total 6 weeks ending 11-12-18 Again, this infection is incurable, patient's family has been advised hospice several times in the past but refused patient had new fever 2 days before discharge; ordered blood cultures, UA and urine cultures were negative. Patient remains at high risk of recurrent infections. MRSA bacteremia possible source infected decubitus ulcer cont vanc, ID following, 2d echo showed no vegetation Decubitus ulcer, multiple with different stages cont wound care, abx per ID Could be the source for bacteremia, ID ordered for WBC scan but could not be done because of his chronic contracture/anatomical position Anemia, s/p 2 units blood transfusion, likely AOCD and severe sepsis stool for occult blood negative, H/H stable MÓNICA with vasomotor nephropathy renal function stable with IVF resuscitation therapy, monitor uop q shift, nephrology consulted in ED. Right upper lobe Pneumonia, suspect aspiration Treated with IV antibiotic therapy, supplemental oxygen, pulse oximetry, Elevated troponin Likely due to sepsis with low blood pressure and renal failure Monitor with Serial cardiac enzymes, Cardiology consulted in ED, No EKG changes, supportive care, UTI (lower urinary tract infection) Treated with IV antibiotic therapy, IV fluids Acute hypoxic Respiratory failure Likely due to underlying pneumonia Continue to provide Supplemental oxygen, nebulizer therapy, NIPPV as clinically indicated, pulse oximetry, Moderate to severe protein calorie malnutrition BMI 17.8, albumin 1.7 consulted dietary, continue tube feeding for now hypernatremia, on hypotonic saline Hypokalemia/hyperkalemia, corrected Hypertension, placed on clonidine patch Patient dischrged back to SNF, Patient cleared by ID for discharge and home IV antibiotics are arranged. Disposition: [id number] SNF [facility] Time spent for discharge: 45 minutes - Discharge Diagnoses (1) Elevated troponin Status: Acute (2) Pneumonia Status: Acute Qualifiers: Laterality: right Lung location: upper lobe of lung (3) Respiratory failure Status: Acute Qualifiers: Chronicity: acute Respiratory failure complication: hypoxia Qualified Code(s): J96.01 - Acute respiratory failure with hypoxia (4) Septic shock Status: Acute (5) Decubitus ulcer Status: Acute (6) Pressure ulcer of left hip, stage 4 Status: Acute (7) T2DM (type 2 diabetes mellitus) Status: Chronic Core Measure Documentation - Palliative Care Palliative Care/ Comfort Measures: Not Applicable - Core Measures Any of the following diagnoses?: none Exam - Physical Exam Narrative exam: Patient is aphasic. The patient appeared well nourished and normally developed. Vital signs as documented. Head exam is unremarkable. No scleral icterus . Neck is without jugular venous distension, thyromegaly, or carotid bruits. Lungs are clear to auscultation. Cardiac exam reveals regular rate and Rhythm. Abdominal exam reveals normal bowel sounds. Extremities are contracted. Multiple decubitus ulcer. BELLMAKER: Alert and oriented 3. No focal weakness. - Constitutional Vitals: Temp Pulse Resp BP Pulse Ox 99.9 F H 89 20 127/60 97 10/23/18 07:35 10/23/18 09:20 10/23/18 08:35 10/23/18 09:20 10/23/18 08:35 Plan Activity: other (bed bound) Weight Bearing Status: Non-Weight Bearing Diet: other (TF) Wound: per wound nurse instructions Follow up with: RAMSEY PORTILLO [Other] - 3-5 Days Prescriptions: AtorvaSTATin [Lipitor] 40 mg NGTUBE QHS #30 tablet cloNIDine-TTS PATCH [Catapres-Tts 0.2mg Patch] 0.2 mg TD Tu #7 patch Carvedilol [Coreg] 6.25 mg PO BID #60 tablet
--- NOTE | 2018-10-23 11:35 | Progress Note ---
Assessment and Plan Patient sleeping on 3L O2 . O2 Sat 97%. Patient contracted. No acute respiratory distress. - Patient Problems (1) Acute respiratory failure with hypoxia Current Visit: Yes Status: Acute Plan to address problem: O2 3 litres via nasal canula. Albuterol aerosol treatments q 6 hours. Continue S/C Heparin Continue famotidine. (2) Sepsis Current Visit: Yes Status: Acute Qualifiers: Sepsis type: sepsis due to unspecified organism Qualified Code(s): A41.9 - Sepsis, unspecified organism Plan to address problem: Patient is on vancomycin. (3) Decubitus ulcer Current Visit: No Status: Acute Plan to address problem: Wound care consultation. Patient is on vancomycin. (4) Diabetes Current Visit: No Status: Acute Plan to address problem: Management as per primary care. (5) HTN (hypertension) Current Visit: No Status: Acute Qualifiers: Hypertension type: essential hypertension Qualified Code(s): I10 - Essential (primary) hypertension Plan to address problem: Management as per primary care. Subjective Date of service: 10/23/18 Principal diagnosis: Septic shock; Ac encephalopathy; Multiple decubitus ulcers; MÓNICA Interval history: Patient sleeping on 3L O2 . O2 Sat 97%. Patient contracted. No acute respiratory distress. Objective Vital Signs - 12hr 10/22/18 10/22/18 10/23/18 23:35 23:38 00:38 Temperature Pulse Rate Pulse Rate [ Left Radial] Respiratory 20 24 Rate Respiratory 20 Rate [ Generalized] Blood Pressure O2 Sat by Pulse Oximetry 10/23/18 10/23/18 10/23/18 02:13 06:39 07:35 Temperature 97.5 F L 99.9 F H Pulse Rate 89 89 89 Pulse Rate [ Left Radial] Respiratory 34 H 20 Rate Respiratory Rate [ Generalized] Blood Pressure 113/58 113/58 127/60 O2 Sat by Pulse 100 97 Oximetry 10/23/18 10/23/18 09:20 10:00 Temperature Pulse Rate 89 Pulse Rate [ 89 Left Radial] Respiratory 20 Rate Respiratory Rate [ Generalized] Blood Pressure 127/60 O2 Sat by Pulse 97 Oximetry Constitutional: no acute distress, asleep, other (elderly looking AAM, normocephalic but contrated .) Eyes: non-icteric ENT: oropharynx moist Neck: no lymphadenopathy, no JVD, other (neck stiff and deviated to the right side) Effort: normal Ascultation: Bilateral: diminished breath sounds, rhonchi (scant in bases) Percussion: Bilateral: not dull Cardiovascular: regular rate and rhythm Gastrointestinal: normoactive bowel sounds, soft, non-tender, non-distended, other (PEG tube) Integumentary: rash Extremities: no cyanosis, no edema, pulses normal, no ischemia or petechiae Neurologic: pupils equal and round, other (tardive dyskinetic movts) Psychiatric: other (unable to assess) CBC and BMP: 10/21/18 04:50 10/22/18 04:58 ABG, PT/INR, D-dimer: ABG POC ABG pH 7.480 (7.35-7.45) H 10/01/18 18:12 POC ABG pO2 64 (80-105) L 10/01/18 18:12 POC ABG HCO3 21.0 (22-26 mml/L) 10/01/18 18:12 POC ABG Total CO2 22 (23-27mmol/L) 10/01/18 18:12 POC ABG O2 Sat 94 10/01/18 18:12 Abnormal lab findings: Abnormal Labs 10/01/18 10/01/18 10/01/18 14:29 14:29 15:13 WBC 18.5 H RBC 2.68 L Hgb 7.3 L Hct 23.1 L MCH 27 L MCHC 31 L RDW 19.3 H Plt Count 522 H Lymph % (Auto) 6.7 L [place] % (Auto) Eos % (Auto) Lymph # [place] # 1.2 H Eos # Seg Neutrophils % 85.0 H Seg Neuts % (Manual) Lymphocytes % (Manual) Seg Neutrophils # 15.7 H Seg Neutrophils # Man Lymphocytes # (Manual) POC ABG pH POC ABG pO2 Sodium 148 H Potassium 3.3 L Chloride Carbon Dioxide BUN 98 H Creatinine 2.0 H Glucose 142 H POC Glucose Lactic Acid Calcium Phosphorus Magnesium AST Alkaline Phosphatase Troponin T 0.361 H* C-Reactive Protein Albumin Cholesterol 36 L LDL Cholesterol Direct 6 L HDL Cholesterol 21 L Urine WBC (Auto) > 182.0 H Urine Creatinine Vancomycin Trough Crossmatch 10/01/18 10/01/18 10/01/18 15:15 15:15 17:03 WBC RBC Hgb Hct MCH MCHC RDW Plt Count Lymph % (Auto) [place] % (Auto) Eos % (Auto) Lymph # [place] # Eos # Seg Neutrophils % Seg Neuts % (Manual) Lymphocytes % (Manual) Seg Neutrophils # Seg Neutrophils # Man Lymphocytes # (Manual) POC ABG pH POC ABG pO2 Sodium 150 H Potassium Chloride Carbon Dioxide BUN 94 H Creatinine 2.1 H Glucose 132 H POC Glucose Lactic Acid 2.60 H* 2.20 H* Calcium 7.8 L Phosphorus Magnesium AST 47 H Alkaline Phosphatase 179 H Troponin T C-Reactive Protein Albumin 2.1 L Cholesterol LDL Cholesterol Direct HDL Cholesterol Urine WBC (Auto) Urine Creatinine Vancomycin Trough Crossmatch 10/01/18 10/01/18 10/01/18 18:12 18:23 18:23 WBC RBC Hgb Hct MCH MCHC RDW Plt Count Lymph % (Auto) [place] % (Auto) Eos % (Auto) Lymph # [place] # Eos # Seg Neutrophils % Seg Neuts % (Manual) Lymphocytes % (Manual) Seg Neutrophils # Seg Neutrophils # Man Lymphocytes # (Manual) POC ABG pH 7.480 H POC ABG pO2 64 L Sodium Potassium Chloride Carbon Dioxide BUN Creatinine Glucose POC Glucose Lactic Acid Calcium Phosphorus Magnesium 3.30 H AST Alkaline Phosphatase Troponin T 0.378 H* C-Reactive Protein Albumin Cholesterol LDL Cholesterol Direct HDL Cholesterol Urine WBC (Auto) Urine Creatinine Vancomycin Trough Crossmatch 10/01/18 10/01/18 10/01/18 18:48 21:20 23:48 WBC RBC Hgb Hct MCH MCHC RDW Plt Count Lymph % (Auto) [place] % (Auto) Eos % (Auto) Lymph # [place] # Eos # Seg Neutrophils % Seg Neuts % (Manual) Lymphocytes % (Manual) Seg Neutrophils # Seg Neutrophils # Man Lymphocytes # (Manual) POC ABG pH POC ABG pO2 Sodium Potassium Chloride Carbon Dioxide BUN Creatinine Glucose POC Glucose Lactic Acid 2.30 H* 2.70 H* Calcium Phosphorus Magnesium AST Alkaline Phosphatase Troponin T 0.336 H* C-Reactive Protein Albumin Cholesterol LDL Cholesterol Direct HDL Cholesterol Urine WBC (Auto) Urine Creatinine Vancomycin Trough Crossmatch 10/01/18 10/02/18 10/02/18 23:48 04:45 04:45 WBC 18.3 H RBC 2.40 L Hgb 6.4 L Hct 20.4 L MCH 27 L MCHC 31 L RDW 19.1 H Plt Count 462 H Lymph % (Auto) [place] % (Auto) Eos % (Auto) Lymph # [place] # Eos # Seg Neutrophils % Seg Neuts % (Manual) 78.0 H Lymphocytes % (Manual) 5.0 L Seg Neutrophils # Seg Neutrophils # Man 14.3 H Lymphocytes # (Manual) 0.9 L POC ABG pH POC ABG pO2 Sodium Potassium Chloride Carbon Dioxide BUN Creatinine Glucose POC Glucose Lactic Acid 2.50 H* Calcium Phosphorus Magnesium AST Alkaline Phosphatase Troponin T C-Reactive Protein Albumin Cholesterol LDL Cholesterol Direct HDL Cholesterol Urine WBC (Auto) Urine Creatinine 74.7 H Vancomycin Trough Crossmatch 10/02/18 10/02/18 10/02/18 04:45 04:45 04:45 WBC RBC Hgb Hct MCH MCHC RDW Plt Count Lymph % (Auto) [place] % (Auto) Eos % (Auto) Lymph # [place] # Eos # Seg Neutrophils % Seg Neuts % (Manual) Lymphocytes % (Manual) Seg Neutrophils # Seg Neutrophils # Man Lymphocytes # (Manual) POC ABG pH POC ABG pO2 Sodium 148 H Potassium 3.1 L Chloride 108.6 H Carbon Dioxide 21 L BUN 89 H Creatinine 1.8 H Glucose POC Glucose Lactic Acid 2.10 H* Calcium 8.3 L Phosphorus 5.00 H Magnesium AST Alkaline Phosphatase 161 H Troponin T C-Reactive Protein Albumin 1.7 L Cholesterol LDL Cholesterol Direct HDL Cholesterol Urine WBC (Auto) Urine Creatinine Vancomycin Trough Crossmatch 10/02/18 10/02/18 10/03/18 09:46 11:47 00:03 WBC RBC Hgb Hct MCH MCHC RDW Plt Count Lymph % (Auto) [place] % (Auto) Eos % (Auto) Lymph # [place] # Eos # Seg Neutrophils % Seg Neuts % (Manual) Lymphocytes % (Manual) Seg Neutrophils # Seg Neutrophils # Man Lymphocytes # (Manual) POC ABG pH POC ABG pO2 Sodium Potassium Chloride Carbon Dioxide BUN Creatinine Glucose POC Glucose 112 H 106 H Lactic Acid Calcium Phosphorus Magnesium AST Alkaline Phosphatase Troponin T C-Reactive Protein Albumin Cholesterol LDL Cholesterol Direct HDL Cholesterol Urine WBC (Auto) Urine Creatinine Vancomycin Trough Crossmatch See Detail 10/03/18 10/03/18 10/03/18 06:06 06:45 06:45 WBC 17.3 H RBC 2.81 L Hgb 7.6 L Hct 24.1 L MCH 27 L MCHC 31 L RDW 18.4 H Plt Count 473 H Lymph % (Auto) 5.2 L [place] % (Auto) Eos % (Auto) 4.6 H Lymph # 0.9 L [place] # Eos # 0.8 H Seg Neutrophils % 85.7 H Seg Neuts % (Manual) Lymphocytes % (Manual) Seg Neutrophils # 14.8 H Seg Neutrophils # Man Lymphocytes # (Manual) POC ABG pH POC ABG pO2 Sodium 148 H Potassium Chloride 112.1 H Carbon Dioxide 21 L BUN 79 H Creatinine 1.7 H Glucose 116 H POC Glucose 130 H Lactic Acid Calcium 7.9 L Phosphorus Magnesium AST Alkaline Phosphatase Troponin T C-Reactive Protein Albumin Cholesterol LDL Cholesterol Direct HDL Cholesterol Urine WBC (Auto) Urine Creatinine Vancomycin Trough Crossmatch 10/03/18 10/03/18 10/03/18 11:50 17:42 23:20 WBC RBC Hgb Hct MCH MCHC RDW Plt Count Lymph % (Auto) [place] % (Auto) Eos % (Auto) Lymph # [place] # Eos # Seg Neutrophils % Seg Neuts % (Manual) Lymphocytes % (Manual) Seg Neutrophils # Seg Neutrophils # Man Lymphocytes # (Manual) POC ABG pH POC ABG pO2 Sodium Potassium Chloride Carbon Dioxide BUN Creatinine Glucose POC Glucose 126 H 118 H 106 H Lactic Acid Calcium Phosphorus Magnesium AST Alkaline Phosphatase Troponin T C-Reactive Protein Albumin Cholesterol LDL Cholesterol Direct HDL Cholesterol Urine WBC (Auto) Urine Creatinine Vancomycin Trough Crossmatch 10/04/18 10/04/18 10/04/18 05:22 07:00 07:00 WBC 14.8 H RBC 2.38 L Hgb 6.4 L Hct 20.5 L MCH 27 L MCHC 31 L RDW 18.2 H Plt Count Lymph % (Auto) 5.3 L [place] % (Auto) Eos % (Auto) 9.5 H Lymph # 0.8 L [place] # Eos # 1.4 H Seg Neutrophils % 81.2 H Seg Neuts % (Manual) Lymphocytes % (Manual) Seg Neutrophils # 12.0 H Seg Neutrophils # Man Lymphocytes # (Manual) POC ABG pH POC ABG pO2 Sodium 148 H Potassium Chloride 112.0 H Carbon Dioxide BUN 73 H Creatinine Glucose 105 H POC Glucose 115 H Lactic Acid Calcium 8.1 L Phosphorus Magnesium AST Alkaline Phosphatase Troponin T C-Reactive Protein Albumin 1.5 L Cholesterol LDL Cholesterol Direct HDL Cholesterol Urine WBC (Auto) Urine Creatinine Vancomycin Trough Crossmatch 10/04/18 10/04/18 10/05/18 12:35 18:28 04:20 WBC 14.1 H RBC 2.94 L Hgb 8.2 L Hct 25.2 L MCH MCHC RDW 17.9 H Plt Count Lymph % (Auto) 6.6 L [place] % (Auto) Eos % (Auto) 6.4 H Lymph # 0.9 L [place] # Eos # 0.9 H Seg Neutrophils % 82.7 H Seg Neuts % (Manual) Lymphocytes % (Manual) Seg Neutrophils # 11.6 H Seg Neutrophils # Man Lymphocytes # (Manual) POC ABG pH POC ABG pO2 Sodium Potassium Chloride Carbon Dioxide BUN Creatinine Glucose POC Glucose 109 H 109 H Lactic Acid Calcium Phosphorus Magnesium AST Alkaline Phosphatase Troponin T C-Reactive Protein Albumin Cholesterol LDL Cholesterol Direct HDL Cholesterol Urine WBC (Auto) Urine Creatinine Vancomycin Trough Crossmatch 10/05/18 10/05/18 10/05/18 04:20 11:45 17:32 WBC RBC Hgb Hct MCH MCHC RDW Plt Count Lymph % (Auto) [place] % (Auto) Eos % (Auto) Lymph # [place] # Eos # Seg Neutrophils % Seg Neuts % (Manual) Lymphocytes % (Manual) Seg Neutrophils # Seg Neutrophils # Man Lymphocytes # (Manual) POC ABG pH POC ABG pO2 Sodium Potassium Chloride 110.0 H Carbon Dioxide 21 L BUN 64 H Creatinine Glucose POC Glucose 118 H 113 H Lactic Acid Calcium 8.3 L Phosphorus Magnesium AST Alkaline Phosphatase Troponin T C-Reactive Protein Albumin Cholesterol LDL Cholesterol Direct HDL Cholesterol Urine WBC (Auto) Urine Creatinine Vancomycin Trough Crossmatch 10/06/18 10/06/18 10/06/18 05:15 05:15 05:35 WBC 12.3 H RBC 2.77 L Hgb 7.6 L Hct 24.1 L MCH MCHC RDW 18.1 H Plt Count Lymph % (Auto) 4.9 L [place] % (Auto) Eos % (Auto) 7.3 H Lymph # 0.6 L [place] # Eos # 0.9 H Seg Neutrophils % 81.1 H Seg Neuts % (Manual) Lymphocytes % (Manual) Seg Neutrophils # 10.0 H Seg Neutrophils # Man Lymphocytes # (Manual) POC ABG pH POC ABG pO2 Sodium 146 H Potassium Chloride 112.1 H Carbon Dioxide BUN 57 H Creatinine Glucose 120 H POC Glucose 115 H Lactic Acid Calcium Phosphorus Magnesium AST Alkaline Phosphatase Troponin T C-Reactive Protein Albumin Cholesterol LDL Cholesterol Direct HDL Cholesterol Urine WBC (Auto) Urine Creatinine Vancomycin Trough Crossmatch 10/06/18 10/06/18 10/06/18 12:31 18:44 Unknown WBC RBC Hgb Hct MCH MCHC RDW Plt Count Lymph % (Auto) [place] % (Auto) Eos % (Auto) Lymph # [place] # Eos # Seg Neutrophils % Seg Neuts % (Manual) Lymphocytes % (Manual) Seg Neutrophils # Seg Neutrophils # Man Lymphocytes # (Manual) POC ABG pH POC ABG pO2 Sodium Potassium Chloride Carbon Dioxide BUN Creatinine Glucose POC Glucose 150 H 125 H Lactic Acid Calcium Phosphorus Magnesium AST Alkaline Phosphatase Troponin T C-Reactive Protein Albumin Cholesterol LDL Cholesterol Direct HDL Cholesterol Urine WBC (Auto) Urine Creatinine Vancomycin Trough 23.5 H Crossmatch 10/07/18 10/07/18 10/07/18 05:06 05:06 08:34 WBC RBC Hgb 8.2 L Hct 25.8 L MCH MCHC RDW Plt Count Lymph % (Auto) [place] % (Auto) Eos % (Auto) Lymph # [place] # Eos # Seg Neutrophils % Seg Neuts % (Manual) Lymphocytes % (Manual) Seg Neutrophils # Seg Neutrophils # Man Lymphocytes # (Manual) POC ABG pH POC ABG pO2 Sodium Potassium Chloride 112.2 H Carbon Dioxide 21 L BUN 43 H Creatinine Glucose POC Glucose Lactic Acid Calcium 8.3 L Phosphorus Magnesium AST Alkaline Phosphatase Troponin T C-Reactive Protein Albumin Cholesterol LDL Cholesterol Direct HDL Cholesterol Urine WBC (Auto) Urine Creatinine Vancomycin Trough 23.0 H Crossmatch 10/08/18 10/08/18 10/08/18 05:07 05:07 11:09 WBC RBC 2.86 L Hgb 8.0 L Hct 24.5 L MCH MCHC RDW 18.7 H Plt Count Lymph % (Auto) 7.8 L [place] % (Auto) 8.2 H Eos % (Auto) 5.9 H Lymph # 0.8 L [place] # 0.9 H Eos # 0.6 H Seg Neutrophils % 77.8 H Seg Neuts % (Manual) Lymphocytes % (Manual) Seg Neutrophils # 8.2 H Seg Neutrophils # Man Lymphocytes # (Manual) POC ABG pH POC ABG pO2 Sodium Potassium 5.1 H Chloride 111.8 H Carbon Dioxide BUN 37 H Creatinine Glucose 101 H POC Glucose Lactic Acid Calcium 8.3 L Phosphorus Magnesium 2.50 H AST Alkaline Phosphatase Troponin T C-Reactive Protein 11.40 H Albumin Cholesterol LDL Cholesterol Direct HDL Cholesterol Urine WBC (Auto) Urine Creatinine Vancomycin Trough Crossmatch 10/09/18 10/10/18 10/10/18 05:48 09:02 09:02 WBC 13.6 H RBC 2.80 L Hgb 7.5 L Hct 23.9 L MCH 27 L MCHC 31 L RDW 18.9 H Plt Count Lymph % (Auto) 5.7 L [place] % (Auto) 8.5 H Eos % (Auto) Lymph # 0.8 L [place] # 1.1 H Eos # Seg Neutrophils % 83.9 H Seg Neuts % (Manual) Lymphocytes % (Manual) Seg Neutrophils # 11.4 H Seg Neutrophils # Man Lymphocytes # (Manual) POC ABG pH POC ABG pO2 Sodium Potassium 5.2 H 5.6 H Chloride 112.9 H 111.7 H Carbon Dioxide 21 L BUN 34 H 32 H Creatinine 0.7 L Glucose 109 H POC Glucose Lactic Acid Calcium Phosphorus Magnesium AST Alkaline Phosphatase Troponin T C-Reactive Protein Albumin Cholesterol LDL Cholesterol Direct HDL Cholesterol Urine WBC (Auto) Urine Creatinine Vancomycin Trough Crossmatch 10/11/18 10/11/18 10/11/18 04:41 04:41 09:09 WBC 11.4 H RBC 2.52 L Hgb 6.9 L Hct 22.0 L MCH 27 L MCHC 31 L RDW 19.0 H Plt Count Lymph % (Auto) [place] % (Auto) Eos % (Auto) Lymph # [place] # Eos # Seg Neutrophils % Seg Neuts % (Manual) Lymphocytes % (Manual) Seg Neutrophils # Seg Neutrophils # Man Lymphocytes # (Manual) POC ABG pH POC ABG pO2 Sodium 146 H Potassium Chloride 113.0 H Carbon Dioxide BUN 30 H Creatinine Glucose POC Glucose Lactic Acid Calcium 8.2 L Phosphorus Magnesium AST Alkaline Phosphatase Troponin T C-Reactive Protein Albumin Cholesterol LDL Cholesterol Direct HDL Cholesterol Urine WBC (Auto) Urine Creatinine Vancomycin Trough Crossmatch See Detail 10/11/18 10/12/18 10/12/18 23:29 04:22 04:22 WBC RBC 2.98 L Hgb 8.3 L Hct 25.5 L MCH MCHC RDW 17.7 H Plt Count Lymph % (Auto) [place] % (Auto) Eos % (Auto) Lymph # [place] # Eos # Seg Neutrophils % Seg Neuts % (Manual) Lymphocytes % (Manual) Seg Neutrophils # Seg Neutrophils # Man Lymphocytes # (Manual) POC ABG pH POC ABG pO2 Sodium 146 H 146 H Potassium Chloride 110.6 H 112.8 H Carbon Dioxide BUN 30 H 29 H Creatinine Glucose 102 H POC Glucose Lactic Acid Calcium 8.2 L Phosphorus 4.60 H Magnesium AST Alkaline Phosphatase Troponin T C-Reactive Protein Albumin Cholesterol LDL Cholesterol Direct HDL Cholesterol Urine WBC (Auto) Urine Creatinine Vancomycin Trough Crossmatch 10/13/18 10/13/18 10/14/18 23:00 23:00 00:15 WBC RBC 2.95 L Hgb 8.6 L Hct 25.4 L MCH MCHC RDW 18.1 H Plt Count Lymph % (Auto) [place] % (Auto) Eos % (Auto) Lymph # [place] # Eos # Seg Neutrophils % Seg Neuts % (Manual) Lymphocytes % (Manual) Seg Neutrophils # Seg Neutrophils # Man Lymphocytes # (Manual) POC ABG pH POC ABG pO2 Sodium Potassium 5.4 H Chloride 111.4 H Carbon Dioxide BUN 30 H Creatinine Glucose 107 H POC Glucose 151 H Lactic Acid Calcium Phosphorus Magnesium AST Alkaline Phosphatase Troponin T C-Reactive Protein Albumin Cholesterol LDL Cholesterol Direct HDL Cholesterol Urine WBC (Auto) Urine Creatinine Vancomycin Trough Crossmatch 10/14/18 10/14/18 10/15/18 07:18 18:33 05:32 WBC RBC Hgb Hct MCH MCHC RDW Plt Count Lymph % (Auto) [place] % (Auto) Eos % (Auto) Lymph # [place] # Eos # Seg Neutrophils % Seg Neuts % (Manual) Lymphocytes % (Manual) Seg Neutrophils # Seg Neutrophils # Man Lymphocytes # (Manual) POC ABG pH POC ABG pO2 Sodium 146 H Potassium 5.3 H 3.5 L D Chloride 112.3 H 111.1 H Carbon Dioxide BUN 29 H 28 H Creatinine Glucose 106 H 103 H POC Glucose 124 H Lactic Acid Calcium Phosphorus Magnesium AST Alkaline Phosphatase Troponin T C-Reactive Protein Albumin Cholesterol LDL Cholesterol Direct HDL Cholesterol Urine WBC (Auto) Urine Creatinine Vancomycin Trough Crossmatch 10/15/18 10/15/18 10/16/18 05:32 11:59 00:02 WBC RBC 2.93 L Hgb 8.2 L Hct 25.4 L MCH MCHC RDW 17.5 H Plt Count Lymph % (Auto) [place] % (Auto) Eos % (Auto) Lymph # [place] # Eos # Seg Neutrophils % Seg Neuts % (Manual) Lymphocytes % (Manual) Seg Neutrophils # Seg Neutrophils # Man Lymphocytes # (Manual) POC ABG pH POC ABG pO2 Sodium Potassium Chloride Carbon Dioxide BUN Creatinine Glucose POC Glucose 110 H 107 H Lactic Acid Calcium Phosphorus Magnesium AST Alkaline Phosphatase Troponin T C-Reactive Protein Albumin Cholesterol LDL Cholesterol Direct HDL Cholesterol Urine WBC (Auto) Urine Creatinine Vancomycin Trough Crossmatch 10/16/18 10/16/18 10/17/18 05:02 23:27 06:00 WBC RBC Hgb Hct MCH MCHC RDW Plt Count Lymph % (Auto) [place] % (Auto) Eos % (Auto) Lymph # [place] # Eos # Seg Neutrophils % Seg Neuts % (Manual) Lymphocytes % (Manual) Seg Neutrophils # Seg Neutrophils # Man Lymphocytes # (Manual) POC ABG pH POC ABG pO2 Sodium Potassium 3.3 L Chloride 108.9 H 107.5 H Carbon Dioxide BUN 27 H 26 H Creatinine 0.7 L Glucose 118 H POC Glucose 113 H Lactic Acid Calcium Phosphorus Magnesium AST Alkaline Phosphatase Troponin T C-Reactive Protein Albumin Cholesterol LDL Cholesterol Direct HDL Cholesterol Urine WBC (Auto) Urine Creatinine Vancomycin Trough Crossmatch 10/17/18 10/17/18 10/18/18 11:50 16:36 00:50 WBC RBC Hgb Hct MCH MCHC RDW Plt Count Lymph % (Auto) [place] % (Auto) Eos % (Auto) Lymph # [place] # Eos # Seg Neutrophils % Seg Neuts % (Manual) Lymphocytes % (Manual) Seg Neutrophils # Seg Neutrophils # Man Lymphocytes # (Manual) POC ABG pH POC ABG pO2 Sodium Potassium Chloride Carbon Dioxide BUN Creatinine Glucose POC Glucose 108 H 106 H 111 H Lactic Acid Calcium Phosphorus Magnesium AST Alkaline Phosphatase Troponin T C-Reactive Protein Albumin Cholesterol LDL Cholesterol Direct HDL Cholesterol Urine WBC (Auto) Urine Creatinine Vancomycin Trough Crossmatch 10/18/18 10/18/18 10/18/18 06:26 12:54 17:54 WBC RBC Hgb Hct MCH MCHC RDW Plt Count Lymph % (Auto) [place] % (Auto) Eos % (Auto) Lymph # [place] # Eos # Seg Neutrophils % Seg Neuts % (Manual) Lymphocytes % (Manual) Seg Neutrophils # Seg Neutrophils # Man Lymphocytes # (Manual) POC ABG pH POC ABG pO2 Sodium Potassium Chloride Carbon Dioxide BUN Creatinine Glucose POC Glucose 112 H 113 H 108 H Lactic Acid Calcium Phosphorus Magnesium AST Alkaline Phosphatase Troponin T C-Reactive Protein Albumin Cholesterol LDL Cholesterol Direct HDL Cholesterol Urine WBC (Auto) Urine Creatinine Vancomycin Trough Crossmatch 10/18/18 10/19/18 10/19/18 23:38 06:13 12:22 WBC RBC Hgb Hct MCH MCHC RDW Plt Count Lymph % (Auto) [place] % (Auto) Eos % (Auto) Lymph # [place] # Eos # Seg Neutrophils % Seg Neuts % (Manual) Lymphocytes % (Manual) Seg Neutrophils # Seg Neutrophils # Man Lymphocytes # (Manual) POC ABG pH POC ABG pO2 Sodium Potassium Chloride Carbon Dioxide BUN Creatinine Glucose POC Glucose 107 H 121 H 120 H Lactic Acid Calcium Phosphorus Magnesium AST Alkaline Phosphatase Troponin T C-Reactive Protein Albumin Cholesterol LDL Cholesterol Direct HDL Cholesterol Urine WBC (Auto) Urine Creatinine Vancomycin Trough Crossmatch 10/19/18 10/20/18 10/20/18 18:13 00:18 12:12 WBC RBC Hgb Hct MCH MCHC RDW Plt Count Lymph % (Auto) [place] % (Auto) Eos % (Auto) Lymph # [place] # Eos # Seg Neutrophils % Seg Neuts % (Manual) Lymphocytes % (Manual) Seg Neutrophils # Seg Neutrophils # Man Lymphocytes # (Manual) POC ABG pH POC ABG pO2 Sodium Potassium Chloride Carbon Dioxide BUN Creatinine Glucose POC Glucose 106 H 113 H 120 H Lactic Acid Calcium Phosphorus Magnesium AST Alkaline Phosphatase Troponin T C-Reactive Protein Albumin Cholesterol LDL Cholesterol Direct HDL Cholesterol Urine WBC (Auto) Urine Creatinine Vancomycin Trough Crossmatch 10/21/18 10/21/18 10/21/18 00:26 04:50 04:50 WBC RBC 2.97 L Hgb 8.3 L Hct 25.4 L MCH MCHC RDW 17.6 H Plt Count 586 H Lymph % (Auto) 9.7 L [place] % (Auto) 16.0 H Eos % (Auto) Lymph # 1.0 L [place] # 1.7 H Eos # Seg Neutrophils % 70.3 H Seg Neuts % (Manual) Lymphocytes % (Manual) Seg Neutrophils # Seg Neutrophils # Man Lymphocytes # (Manual) POC ABG pH POC ABG pO2 Sodium Potassium 5.4 H D Chloride Carbon Dioxide BUN 25 H Creatinine Glucose 107 H POC Glucose 113 H Lactic Acid Calcium Phosphorus Magnesium AST Alkaline Phosphatase 166 H Troponin T C-Reactive Protein Albumin 1.6 L Cholesterol LDL Cholesterol Direct HDL Cholesterol Urine WBC (Auto) Urine Creatinine Vancomycin Trough Crossmatch 10/21/18 10/21/18 10/21/18 05:44 11:22 14:50 WBC RBC Hgb Hct MCH MCHC RDW Plt Count Lymph % (Auto) [place] % (Auto) Eos % (Auto) Lymph # [place] # Eos # Seg Neutrophils % Seg Neuts % (Manual) Lymphocytes % (Manual) Seg Neutrophils # Seg Neutrophils # Man Lymphocytes # (Manual) POC ABG pH POC ABG pO2 Sodium Potassium 5.4 H Chloride Carbon Dioxide BUN Creatinine Glucose POC Glucose 122 H 109 H Lactic Acid Calcium Phosphorus Magnesium AST Alkaline Phosphatase Troponin T C-Reactive Protein Albumin Cholesterol LDL Cholesterol Direct HDL Cholesterol Urine WBC (Auto) Urine Creatinine Vancomycin Trough Crossmatch 10/21/18 10/22/18 10/22/18 18:24 04:58 08:03 WBC RBC Hgb Hct MCH MCHC RDW Plt Count Lymph % (Auto) [place] % (Auto) Eos % (Auto) Lymph # [place] # Eos # Seg Neutrophils % Seg Neuts % (Manual) Lymphocytes % (Manual) Seg Neutrophils # Seg Neutrophils # Man Lymphocytes # (Manual) POC ABG pH POC ABG pO2 Sodium Potassium Chloride Carbon Dioxide BUN 28 H Creatinine Glucose 112 H POC Glucose 112 H 109 H Lactic Acid Calcium Phosphorus Magnesium AST Alkaline Phosphatase Troponin T C-Reactive Protein Albumin Cholesterol LDL Cholesterol Direct HDL Cholesterol Urine WBC (Auto) Urine Creatinine Vancomycin Trough Crossmatch 10/23/18 06:08 WBC RBC Hgb Hct MCH MCHC RDW Plt Count Lymph % (Auto) [place] % (Auto) Eos % (Auto) Lymph # [place] # Eos # Seg Neutrophils % Seg Neuts % (Manual) Lymphocytes % (Manual) Seg Neutrophils # Seg Neutrophils # Man Lymphocytes # (Manual) POC ABG pH POC ABG pO2 Sodium Potassium Chloride Carbon Dioxide BUN Creatinine Glucose POC Glucose 122 H Lactic Acid Calcium Phosphorus Magnesium AST Alkaline Phosphatase Troponin T C-Reactive Protein Albumin Cholesterol LDL Cholesterol Direct HDL Cholesterol Urine WBC (Auto) Urine Creatinine Vancomycin Trough Crossmatch Allied health notes reviewed: nursing
[2018-10-23 14:41] VITALS: BP 123/64
--- NOTE | 2018-10-23 21:31 | Progress Note ---
Assessment and Plan 1. Acute kidney injury: Vasomotor / hemodynamic MÓNICA in the setting of hypotension, sepsis and volume depletion. Renal function is better. Monitor renal function. Avoid nephrotoxic agents. Meds dosage based on GFR. 2. FEN: Hyperkalemia, improved. Hypernatremia, improved. Monitor lytes. 3. Sepsis with shock: MRSA bacteremia. Multiple decubiti. Followed by ID. 4. Acute hypoxic respiratory failure. 5. Anemia: PRBC. 6. Encephalopathy. Subjective Date of service: 10/22/18 Principal diagnosis: Septic shock; Ac encephalopathy; Multiple decubitus ulcers; MÓNICA Interval history: Patient was seen and examined at the bedside. Objective - Vital Signs Vital signs: Vital Signs - 12hr 10/23/18 10/23/18 10/23/18 09:40 10:00 13:30 Temperature 98.8 F Pulse Rate 92 H Pulse Rate [ 89 Left Radial] Respiratory 20 18 Rate Blood Pressure 123/64 O2 Sat by Pulse 96 97 96 Oximetry - General Appearance General appearance: well-developed, appears stated age, other (no distress) EENT: ATNC, PERRL Respiratory: Present: Clear to Ascultation Cardiology: regular, S1S2, no murmurs Gastrointestinal: normoactive bowel sounds, no tenderness, other (PEG tube not ed, bright catheter) Integumentary: ulcer, decubiti Neurologic: other (alert, not following any command) Musculoskeletal: other (multiple contractures noted) - Lab 10/21/18 04:50 10/22/18 04:58 Most recent lab results Calcium 9.1 mg/dL (8.4-10.2) 10/22/18 04:58 Phosphorus 4.20 mg/dL (2.5-4.5) 10/21/18 04:50 Magnesium 2.20 mg/dL (1.7-2.3) 10/21/18 04:50 74.7 mg/dL (0.1-20.0) H 10/02/18 04:45 21 mmol/L 10/02/18 04:45 Medications & Allergies - Medications Allergies/Adverse Reactions: Allergies lisinopril Allergy (Verified 10/01/18 15:17) Unknown tramadol Allergy (Verified 07/29/18 18:39) Unknown Home Medications: Home Medications Medication Instructions Recorded Confirmed Last Taken Type Multivit-Min/Iron Fum/Folic AC 1 each PO DAILY 03/24/18 10/03/18 Unknown History [Adlcv-Spnyagz-Nlhachfp Tablet] Acetaminophen 650 mg NGTUBE Q6H PRN 07/30/18 10/03/18 Unknown History Ipratropium/Albuterol Sulfate 1 ampul IH BID 07/30/18 10/03/18 Unknown History [DUONEB *Not for PRN Use*] Tamsulosin [Flomax] 0.4 mg PO QDAY 07/30/18 10/03/18 Unknown History Vit C/Ascorbate Calcium,Sodium 500 mg NGTUBE BID 07/30/18 10/03/18 Unknown History [Vitamin C 500 mg/15 ml Liquid] Zinc Sulfate 220 mg NGTUBE QDAY 07/30/18 10/03/18 Unknown History levETIRAcetam [Keppra INJ] 500 mg PO Q12H 07/30/18 10/03/18 Unknown History Phosphorus #1 [K-Phos Neutral] 250 mg PO QID #30 tablet 08/23/18 10/03/18 Unknown Rx hydroCHLOROthiazide [HCTZ] 12.5 mg PO QDAY #30 tablet 08/23/18 10/03/18 Unknown Rx AtorvaSTATin [Lipitor] 40 mg NGTUBE QHS #30 tablet 10/21/18 Unknown Rx Carvedilol [Coreg] 6.25 mg PO BID #60 tablet 10/21/18 Unknown Rx cloNIDine-TTS PATCH [Catapres-Tts 0.2 mg TD Tu #7 patch 10/21/18 Unknown Rx 0.2mg Patch]
--- NOTE | 2018-10-23 21:32 | Progress Note ---
Assessment and Plan 1. Acute kidney injury: Vasomotor / hemodynamic MÓNICA in the setting of hypotension, sepsis and volume depletion. Renal function is better. Monitor renal function. Avoid nephrotoxic agents. Meds dosage based on GFR. 2. FEN: Hyperkalemia, improved. Hypernatremia, improved. Monitor lytes. 3. Sepsis with shock: MRSA bacteremia. Multiple decubiti. Followed by ID. 4. Acute hypoxic respiratory failure. 5. Anemia: PRBC. 6. Encephalopathy. Subjective Date of service: 10/23/18 Principal diagnosis: Septic shock; Ac encephalopathy; Multiple decubitus ulcers; MÓNICA Interval history: Patient was seen and examined at the bedside. Objective - Vital Signs Vital signs: Vital Signs - 12hr 10/23/18 10/23/18 10/23/18 09:40 10:00 13:30 Temperature 98.8 F Pulse Rate 92 H Pulse Rate [ 89 Left Radial] Respiratory 20 18 Rate Blood Pressure 123/64 O2 Sat by Pulse 96 97 96 Oximetry - General Appearance General appearance: well-developed, appears stated age, other (no distress) EENT: ATNC, PERRL Respiratory: Present: Clear to Ascultation Cardiology: regular, S1S2, no murmurs Gastrointestinal: normoactive bowel sounds, other (PEG tube noted, bright ag[place]) Integumentary: ulcer, decubiti Neurologic: other (alert, able to speak few words, not following any command) Musculoskeletal: other (multiple contractures noted) - Lab 10/21/18 04:50 10/22/18 04:58 Most recent lab results Calcium 9.1 mg/dL (8.4-10.2) 10/22/18 04:58 Phosphorus 4.20 mg/dL (2.5-4.5) 10/21/18 04:50 Magnesium 2.20 mg/dL (1.7-2.3) 10/21/18 04:50 74.7 mg/dL (0.1-20.0) H 10/02/18 04:45 21 mmol/L 10/02/18 04:45 Medications & Allergies - Medications Allergies/Adverse Reactions: Allergies lisinopril Allergy (Verified 10/01/18 15:17) Unknown tramadol Allergy (Verified 07/29/18 18:39) Unknown Home Medications: Home Medications Medication Instructions Recorded Confirmed Last Taken Type Multivit-Min/Iron Fum/Folic AC 1 each PO DAILY 03/24/18 10/03/18 Unknown History [Trqay-Rowdpec-Atvjmulu Tablet] Acetaminophen 650 mg NGTUBE Q6H PRN 07/30/18 10/03/18 Unknown History Ipratropium/Albuterol Sulfate 1 ampul IH BID 07/30/18 10/03/18 Unknown History [DUONEB *Not for PRN Use*] Tamsulosin [Flomax] 0.4 mg PO QDAY 07/30/18 10/03/18 Unknown History Vit C/Ascorbate Calcium,Sodium 500 mg NGTUBE BID 07/30/18 10/03/18 Unknown History [Vitamin C 500 mg/15 ml Liquid] Zinc Sulfate 220 mg NGTUBE QDAY 07/30/18 10/03/18 Unknown History levETIRAcetam [Keppra INJ] 500 mg PO Q12H 07/30/18 10/03/18 Unknown History Phosphorus #1 [K-Phos Neutral] 250 mg PO QID #30 tablet 08/23/18 10/03/18 Unkn own Rx hydroCHLOROthiazide [HCTZ] 12.5 mg PO QDAY #30 tablet 08/23/18 10/03/18 Unknown Rx AtorvaSTATin [Lipitor] 40 mg NGTUBE QHS #30 tablet 10/21/18 Unknown Rx Carvedilol [Coreg] 6.25 mg PO BID #60 tablet 10/21/18 Unknown Rx cloNIDine-TTS PATCH [Catapres-Tts 0.2 mg TD Tu #7 patch 10/21/18 Unknown Rx 0.2mg Patch]
== END 2018-10-23 16:25 | DRG 871 ==
LOC: EDBD → ED 14:11 → CC1 17:40 → EDBD 17:40 → CC1 20:09 → 4A 10-07 21:27 → 2B-ACE 10-22 20:57
PROVIDERS: ADMIT Internal Medicine; ATTEND Internal Medicine
PROC: 4A033R1 Measurement of Arterial Saturation, Peripheral, Percutaneous Approach (ICD-10-PCS; 2018-10-01)
PROC: 30233N1 Transfusion of Nonautologous Red Blood Cells into Peripheral Vein, Percutaneous Approach (ICD-10-PCS; 2018-10-02)
PROC: 06HY33Z Insertion of Infusion Device into Lower Vein, Percutaneous Approach (ICD-10-PCS; 2018-10-02)
PROC: 05HY33Z Insertion of Infusion Device into Upper Vein, Percutaneous Approach (ICD-10-PCS; 2018-10-06)
PROC: 0JH63XZ Insertion of Tunneled Vascular Access Device into Chest Subcutaneous Tissue and Fascia, Percutaneous Approach (ICD-10-PCS; principal; 2018-10-16)
PROC: 02H633Z Insertion of Infusion Device into Right Atrium, Percutaneous Approach (ICD-10-PCS; 2018-10-16)
PROC: B2141ZZ Fluoroscopy of Right Heart using Low Osmolar Contrast (ICD-10-PCS; 2018-10-16)
PROC: B244ZZZ Ultrasonography of Right Heart (ICD-10-PCS; 2018-10-16)
DX: A41.02 Sepsis due to Methicillin resistant Staphylococcus aureus (principal); L89.224 Pressure ulcer of left hip, stage 4; N17.0 Acute kidney failure with tubular necrosis; J96.01 Acute respiratory failure with hypoxia; J18.1 Lobar pneumonia, unspecified organism; R65.21 Severe sepsis with septic shock; E43 Unspecified severe protein-calorie malnutrition; G93.41 Metabolic encephalopathy; N39.0 Urinary tract infection, site not specified; I42.9 Cardiomyopathy, unspecified; E87.0 Hyperosmolality and hypernatremia; Z68.1 Body mass index [BMI] 19.9 or less, adult; I10 Essential (primary) hypertension; L89.899 Pressure ulcer of other site, unspecified stage; E11.9 Type 2 diabetes mellitus without complications; I44.7 Left bundle-branch block, unspecified; G40.909 Epilepsy, unspecified, not intractable, without status epilepticus; J44.9 Chronic obstructive pulmonary disease, unspecified; F03.90 Unspecified dementia, unspecified severity, without behavioral disturbance, psychotic disturbance, mood disturbance, and anxiety; N40.0 Benign prostatic hyperplasia without lower urinary tract symptoms; D64.9 Anemia, unspecified; Z86.73 Personal history of transient ischemic attack (TIA), and cerebral infarction without residual deficits; I25.2 Old myocardial infarction; Z88.6 Allergy status to analgesic agent; Z88.8 Allergy status to other drugs, medicaments and biological substances; Z79.899 Other long term (current) drug therapy; Z74.01 Bed confinement status; Z87.442 Personal history of urinary calculi; Z93.1 Gastrostomy status; Z79.84 Long term (current) use of oral hypoglycemic drugs
CPT/HCPCS: 36415; 36558; 71045; 77001; 80048; 80053; 80061; 80076; 80202; 81001; 82140; 82270; 82570; 82803; 82962; 83735; 84100; 84132; 84154; 84300; 84439; 84443; 84484; 85007; 85014; 85018; 85025; 85027; 86140; 86850; 86900; 86901; 86920; 87040; 87076; 87186; 93005; 93010; 93306; 94640; 94760; 96372; G0378; A9270-GY; C1751; J0360; J0456; J0696; J1205; J1644; J1815; J1953; J1956; J2185; J2250; J2543; J2997; J3010; J3370; J7030; J7040; J7050; J7120; P9016

== ENCOUNTER 2018-10-26 09:00 | Emergency (ER) | payer MEDICARE ==
--- NOTE | 2018-10-26 10:33 | Emergency Department Report ---
ED General Adult HPI - General Chief complaint: Urogenital-Male Stated complaint: GENERAL WEAKNESS Time Seen by Provider: 10/26/18 10:20 Source: EMS, old records reviewed Mode of arrival: Stretcher Limitations: Other - History of Present Illness Initial comments: Patient is 67 years old male, retirement patient, bedridden with history of CVA, hypertension, decubitus ulcer and history of obstructive uropathy. Patient brought to the emergency room from retirement via EMS stating that patient and daughter want patient to have a Chaudhary catheter. Patient was recently discharged from the hospital for urosepsis patient have a PICC line and is getting vancomycin IV. Patient today's alert, oriented 3 in no acute distress. Patient refused Chaudhary catheter. Patient is able to make a sound decision and he refused the procedure. Severity scale (0 -10): 0 - Related Data Home Medications Medication Instructions Recorded Confirmed Last Taken Multivit-Min/Iron Fum/Folic AC 1 each PO DAILY 03/24/18 10/03/18 Unknown [Sztcd-Czcqbww-Woyfpiek Tablet] Acetaminophen 650 mg NGTUBE Q6H PRN 07/30/18 10/03/18 Unknown Ipratropium/Albuterol Sulfate 1 ampul IH BID 07/30/18 10/03/18 Unknown [DUONEB *Not for PRN Use*] Tamsulosin [Flomax] 0.4 mg PO QDAY 07/30/18 10/03/18 Unknown Vit C/Ascorbate Calcium,Sodium 500 mg NGTUBE BID 07/30/18 10/03/18 Unknown [Vitamin C 500 mg/15 ml Liquid] Zinc Sulfate 220 mg NGTUBE QDAY 07/30/18 10/03/18 Unknown levETIRAcetam [Keppra INJ] 500 mg PO Q12H 07/30/18 10/03/18 Unknown Previous Rx's Medication Instructions Recorded Last Taken Type Phosphorus #1 [K-Phos Neutral] 250 mg PO QID #30 tablet 08/23/18 Unknown Rx hydroCHLOROthiazide [HCTZ] 12.5 mg PO QDAY #30 tablet 08/23/18 Unknown Rx AtorvaSTATin [Lipitor] 40 mg NGTUBE QHS #30 tablet 10/21/18 Unknown Rx Carvedilol [Coreg] 6.25 mg PO BID #60 tablet 10/21/18 Unknown Rx cloNIDine-TTS PATCH [Catapres-Tts 0.2 mg TD Tu #7 patch 10/21/18 Unknown Rx 0.2mg Patch] Allergies Allergy/AdvReac Type Severity Reaction Status Date / Time lisinopril Allergy Unknown Verified 10/01/18 15:17 tramadol Allergy Unknown Verified 07/29/18 18:39 ED Review of Systems ROS: Stated complaint: GENERAL WEAKNESS Other details as noted in HPI Comment: All other systems reviewed and negative Constitutional: denies: chills, fever Respiratory: denies: cough, orthopnea, shortness of breath, SOB with exertion, SOB at rest, wheezing Cardiovascular: denies: chest pain, palpitations, dyspnea on exertion Gastrointestinal: denies: abdominal pain, nausea, vomiting, diarrhea, constipation Neurological: denies: headache ED Past Medical Hx - Past Medical History Previous Medical History?: Yes Hx Hypertension: Yes Hx CVA: Yes Hx Heart Attack/AMI: Yes Hx Congestive Heart Failure: Yes Hx Diabetes: Yes Hx Deep Vein Thrombosis: No Hx Pulmonary Embolism: No Hx GERD: No Hx Liver Disease: No Hx Renal Disease: No Hx Sickle Cell Disease: No Hx Arthritis: Yes Hx Headaches / Migraines: No Hx Seizures: Yes Hx Kidney Stones: Yes Hx Psychiatric Treatment: Yes (Dementia) Hx Asthma: No Hx COPD: Yes Hx Tuberculosis: No Hx Dementia: Yes Hx HIV: No Additional medical history: Benign prostatic hypertrophy - Surgical History Past Surgical History?: Yes Hx Coronary Stent: No Hx Open Heart Surgery: No Hx Pacemaker: No Hx Internal Defibrillator: No Hx Cholecystectomy: No Hx Appendectomy: No Hx Breast Surgery: No Additional Surgical History: debridement of sacral wound, gastrostomy - Social History Smoking Status: Unknown if ever smoked - Medications Home Medications: Home Medications Medication Instructions Recorded Confirmed Last Taken Type Multivit-Min/Iron Fum/Folic AC 1 each PO DAILY 03/24/18 10/03/18 Unknown History [Dteds-Xqeuofp-Fxnjhuuh Tablet] Acetaminophen 650 mg NGTUBE Q6H PRN 07/30/18 10/03/18 Unknown History Ipratropium/Albuterol Sulfate 1 ampul IH BID 07/30/18 10/03/18 Unknown History [DUONEB *Not for PRN Use*] Tamsulosin [Flomax] 0.4 mg PO QDAY 07/30/18 10/03/18 Unknown History Vit C/Ascorbate Calcium,Sodium 500 mg NGTUBE BID 07/30/18 10/03/18 Unknown History [Vitamin C 500 mg/15 ml Liquid] Zinc Sulfate 220 mg NGTUBE QDAY 07/30/18 10/03/18 Unknown History levETIRAcetam [Keppra INJ] 500 mg PO Q12H 07/30/18 10/03/18 Unknown History Phosphorus #1 [K-Phos Neutral] 250 mg PO QID #30 tablet 08/23/18 10/03/18 Unknown Rx hydroCHLOROthiazide [HCTZ] 12.5 mg PO QDAY #30 tablet 08/23/18 10/03/18 Unknown Rx AtorvaSTATin [Lipitor] 40 mg NGTUBE QHS #30 tablet 10/21/18 Unknown Rx Carvedilol [Coreg] 6.25 mg PO BID #60 tablet 10/21/18 Unknown Rx cloNIDine-TTS PATCH [Catapres-Tts 0.2 mg TD Tu #7 patch 10/21/18 Unknown Rx 0.2mg Patch] ED Physical Exam - General Limitations: Other General appearance: alert, in no apparent distress - Head Head exam: Present: atraumatic, normocephalic, normal inspection - Eye Eye exam: Present: normal appearance, PERRL - ENT ENT exam: Present: normal exam, normal orophraynx, mucous membranes moist - Neck Neck exam: Present: normal inspection. Absent: tenderness, meningismus - Respiratory Respiratory exam: Present: normal lung sounds bilaterally - Cardiovascular Cardiovascular Exam: Present: regular rate, normal rhythm, normal heart sounds - GI/Abdominal GI/Abdominal exam: Present: soft, normal bowel sounds. Absent: distended, tenderness, guarding, rebound, rigid, mass, bruit, pulsatile mass - Extremities Exam Extremities exam: Present: other (significantly contracted. Extremities was multiple pressure ulcers.) - Neurological Exam Neurological exam: Present: alert, oriented X3, CN II-XII intact - Skin Skin exam: Present: warm ED Course Vital Signs 10/26/18 10/26/18 10/26/18 10:04 10:19 12:21 Temperature 98.9 F Pulse Rate 85 82 Respiratory 17 16 16 Rate Blood Pressure 129/76 122/76 [Right] O2 Sat by Pulse 96 95 Oximetry ED Medical Decision Making - Medical Decision Making Patient is 67 years old male, retirement patient, bedridden with history of CVA, hypertension, decubitus ulcer and history of obstructive uropathy. Patient brought to the emergency room from retirement via EMS stating that patient and daughter want patient to have a Chaudhary catheter. Patient was recently discharged from the hospital for urosepsis patient have a PICC line and is getting vancomycin IV. Patient today's alert, oriented 3 in no acute distress. Patient refused Chaudhary catheter. Patient is able to make a sound decision and he refused the procedure. Patient daughter arrived to the ER and failed to convince her father to have a Chaudhary catheter. I note this patient has some urinary incontinence so I tried to convince him to have a condom catheter which is is not painful and it might prevent his recurrent urosepsis. Patient agreed to that and a condom catheter placed. I still inform the patient that he developed urinary retention he will definitely need a Chaudhary catheter patient agreed with the plan and patient will be discharged back to the retirement. Critical care attestation.: If time is entered above; I have spent that time in minutes in the direct care of this critically ill patient, excluding procedure time. ED Disposition Clinical Impression: Urinary retention, Urinary incontinence, Catheter (urine) change required Disposition: DC-01 TO HOME OR SELFCARE Is pt being admited?: No Condition: Stable Instructions: Urinary Leg Bag (GEN), Urinary Incontinence (ED), Urinary Retention in Men (ED) Referrals: RAMSEY PORTILLO MD [Primary Care Provider] - 3-5 Days
[2018-10-26 19:16] VITALS: BP 143/77
== END 2018-10-26 18:30 | disposition home or self-care (01) ==
LOC: ED 09:00
DX: R33.9 Retention of urine, unspecified (principal); R32 Unspecified urinary incontinence; I11.0 Hypertensive heart disease with heart failure; I50.9 Heart failure, unspecified; E11.9 Type 2 diabetes mellitus without complications; M19.90 Unspecified osteoarthritis, unspecified site; J44.9 Chronic obstructive pulmonary disease, unspecified; Z87.442 Personal history of urinary calculi; Z93.1 Gastrostomy status; Z88.5 Allergy status to narcotic agent
CPT/HCPCS: 51702

== ENCOUNTER 2018-11-01 14:23 | Inpatient (IN) | payer MEDICARE ==
[2018-11-01] MEDS ORDERED: NACL 0.9% 500 ML 500 ML IV ONE ×2 (14:53→16:44)
[2018-11-01] MEDS ORDERED: TYLENOL PR STA (14:53)
[2018-11-01] MEDS ORDERED: TYLENOL PR ONE ×4 (14:56→18:45)
[2018-11-01] MEDS ORDERED: MAXIPIME/NS 1 GM/100 ML 1 GM/100 ML BAG IV ONE (15:08)
[2018-11-01 15:11] LABS: Basophils # (Auto) 0.1 K/mm3 (0.0-0.1); Basophils % (Auto) 0.6 % (0.0-1.8); Eosinophils # (Auto) 0.1 K/mm3 (0.0-0.4); Hematocrit 23.5 % (35.5-45.6); Hemoglobin 7.9 gm/dl (11.8-15.2); Lymphocytes % (Auto) 6.5 % (13.4-35.0); Mean Corpuscular HGB Conc 34 % (32-34); Mean Corpuscular Volume 85 fl (84-94); Monocytes # (Auto) 1.3 K/mm3 (0.0-0.8); Monocytes % (Auto) 8.5 % (0.0-7.3); Platelet Count 567 K/mm3 (140-440); Red Blood Count 2.76 M/mm3 (3.65-5.03); Red Cell Distribution Width 18.3 % (13.2-15.2)
[2018-11-01 15:12] LABS: INR 1.35 (0.87-1.13)
[2018-11-01 15:24] LABS: Alanine Aminotransferase 77 units/L (7-56); Albumin 1.6 g/dL (3.9-5); BUN/Creatinine Ratio 49; Blood Urea Nitrogen 49 mg/dL (9-20); Calcium 8.9 mg/dL (8.4-10.2); Hemolysis Index 6
[2018-11-01 16:08] LABS: Bilirubin,Urine NEG (Negative); Blood,Urine NEG (Negative); Color,Urine Yellow (Yellow); Mucus,Urine 3+ /HPF; Urobilinogen,Urine < 2.0 mg/dL (<2.0)
[2018-11-01] MEDS ORDERED: VANCOMYCIN/NS 1 GM/250 ML 1 GM/250 ML BAG IV ONE (16:08)
[2018-11-01 16:12] LABS: WBC,Urine > 182.0 /HPF (0.0-6.0)
--- NOTE | 2018-11-01 16:20 | XRay Report ---
PROCEDURE: XR CHEST 1V AP TECHNIQUE: Chest radiograph single view. HISTORY: possible Sepsis COMPARISONS: None . FINDINGS: Frontal view of the chest was acquired and compared to the prior examination of August 02. The patient's head partially obscures the left pulmonary apex. The heart is mildly large unchanged fr om prior exam. There is no consolidative infiltrate IMPRESSION: Stable cardiomegaly No consolidative infiltrate This document is electronically signed by Carlton Draper MD., November 01 2018 04:19:23 PM ET
--- NOTE | 2018-11-01 16:45 | History and Physical Report ---
History of Present Illness Chief complaint: Unresponsive History of present illness: 67 YO Male Retirement Facility Resident as [facility] with HTN, CVA, Obstructive Uropathy, Diastolic CHF, Contracture, Sacral Decubitus Ulcers, FL, DM, OA, Seizure Disorder, COPD, Dementia, BPH presents to ED for evaluation. Pt is stuporous and unable to provide history. Pt history taken from ED Staff, EMS, and SNF Staff. As per staff, the patient was found to have respiratory distress upon evaluation this morning. Pt found to have pulse oximetry in the 80's. EMS notified and patient subsequently transported to [facility] for further care and evaluation. Pt seen and evaluated in ED and found to have UTI, Sepsis, Encep halopathy as well as Acute Hypoxemic Respiratory Failure. Pt initiated on NIPPV in ED with improvement in symptoms. Pt admitted to [facility] and initiated on Sepsis protocol. No further history obtainable. Prior admission on 10/01/18 reviewed. All listed medication reconciled at time of admission. Past History Past Medical History: acute FL, arthritis, COPD, diabetes, seizures, other (Dementia) Past Surgical History: Other (G Tube, Debridement of Sacral wound) Social history: . denies: smoking, alcohol abuse, prescription drug abuse Family history: diabetes, hypertension Medications and Allergies Allergies Allergy/AdvReac Type Severity Reaction Status Date / Time lisinopril Allergy Unknown Verified 10/01/18 15:17 tramadol Allergy Unknown Verified 07/29/18 18:39 Home Medications Medication Instructions Recorded Confirmed Last Taken Type Multivit-Min/Iron Fum/Folic AC 1 each PO DAILY 03/24/18 11/01/18 Unknown History [Nizxt-Vhwomtr-Rgzuvenz Tablet] Acetaminophen 650 mg NGTUBE Q6H PRN 07/30/18 11/01/18 Unknown History Ipratropium/Albuterol Sulfate 1 ampul IH BID 07/30/18 11/01/18 Unknown History [DUONEB *Not for PRN Use*] Tamsulosin [Flomax] 0.4 mg PO QDAY 07/30/18 11/01/18 Unknown History Vit C/Ascorbate Calcium,Sodium 500 mg NGTUBE BID 07/30/18 11/01/18 Unknown History [Vitamin C 500 mg/15 ml Liquid] Zinc Sulfate 220 mg NGTUBE QDAY 07/30/18 11/01/18 Unknown History levETIRAcetam [Keppra INJ] 500 mg PO Q12H 07/30/18 11/01/18 Unknown History Phosphorus #1 [K-Phos Neutral] 250 mg PO QID #30 tablet 08/23/18 11/01/18 Unknown Rx hydroCHLOROthiazide [HCTZ] 12.5 mg PO QDAY #30 tablet 08/23/18 11/01/18 Unknown Rx AtorvaSTATin [Lipitor] 40 mg NGTUBE QHS #30 tablet 10/21/18 11/01/18 Unknown Rx cloNIDine-TTS PATCH [Catapres-Tts 0.2 mg TD Tu #7 patch 10/21/18 11/01/18 Unknown Rx 0.2mg Patch] Insulin Aspart [Novolog] 0 unit SQ AC 11/01/18 11/01/18 Unknown History Vancomycin/Water For Inj (Peg) 1 gm IV Q48H 11/01/18 11/01/18 Unknown History [Vancomycin 1 Gram/200 ml Bag] Active Meds: Active Medications Vancomycin HCl (Vancomycin/Ns 1 Gm/250 Ml) 1 gm in 250 mls @ 167.007 mls/hr IV ONCE ONE; Protocol Stop: 11/01/18 17:37 Review of Systems ROS unobtainable: due to mental status Exam - Constitutional Vitals: Temp Pulse Resp BP Pulse Ox 101 F H 11/01/18 15:06 General appearance: Present: mild distress - EENT Eyes: Present: miosis ENT: clear oral mucosa, no hearing intact - Neck Neck: Present: supple, normal ROM - Respiratory Respiratory effort: normal Respiratory: bilateral: CTA - Cardiovascular Heart Sounds: Present: S1 & S2. Absent: rub, click - Extremities Extremities: pulses symmetrical, No edema Extremity abnormal: other (BLE Contracture) Peripheral Pulses: within normal limits - Abdominal General gastrointestinal: Present: soft, non-tender, non-distended, normal bowel sounds Male genitourinary: Present: normal - Integumentary Integumentary: Present: clear, warm, dry - Musculoskeletal Musculoskeletal: generalized weakness - Psychiatric Psychiatric: no appropriate mood/affect, no intact judgment & insight, no memory intact - Neurologic Neurologic: CNII-XII intact, focal deficits, no moves all extremities, no gait normal Results - Labs CBC & Chem 7: 11/01/18 14:50 11/01/18 14:50 Labs: Abnormal lab results 11/01/18 11/01/18 11/01/18 Range/Units 14:50 14:50 14:50 WBC 15.3 H (4.5-11.0) K/mm3 RBC 2.76 L (3.65-5.03) M/mm3 Hgb 7.9 L (11.8-15.2) gm/dl Hct 23.5 L (35.5-45.6) % RDW 18.3 H (13.2-15.2) % Plt Count 567 H (140-440) K/mm3 Lymph % (Auto) 6.5 L (13.4-35.0) % [place] % (Auto) 8.5 H (0.0-7.3) % Lymph # 1.0 L (1.2-5.4) K/mm3 [place] # 1.3 H (0.0-0.8) K/mm3 Seg Neutrophils % 83.4 H (40.0-70.0) % Seg Neutrophils # 12.7 H (1.8-7.7) K/mm3 PT 16.3 H (12.2-14.9) Sec. INR 1.35 H (0.87-1.13) POC ABG pH (7.35-7.45) POC ABG pCO2 (35-45) POC ABG pO2 (80-105) VBG pH (7.320-7.420) BUN 49 H (9-20) mg/dL Glucose 132 H (75-100) mg/dL AST 90 H (5-40) units/L ALT 77 H (7-56) units/L Alkaline Phosphatase 350 H (35-129) units/L NT-Pro-B Natriuret Pep (0-900) pg/mL Albumin 1.6 L (3.9-5) g/dL Urine WBC (Auto) (0.0-6.0) /HPF 11/01/18 11/01/18 11/01/18 Range/Units 14:50 14:50 15:27 WBC (4.5-11.0) K/mm3 RBC (3.65-5.03) M/mm3 Hgb (11.8-15.2) gm/dl Hct (35.5-45.6) % RDW (13.2-15.2) % Plt Count (140-440) K/mm3 Lymph % (Auto) (13.4-35.0) % [place] % (Auto) (0.0-7.3) % Lymph # (1.2-5.4) K/mm3 [place] # (0.0-0.8) K/mm3 Seg Neutrophils % (40.0-70.0) % Seg Neutrophils # (1.8-7.7) K/mm3 PT (12.2-14.9) Sec. INR (0.87-1.13) POC ABG pH 7.494 H (7.35-7.45) POC ABG pCO2 34.5 L (35-45) POC ABG pO2 139 H (80-105) VBG pH 7.499 H (7.320-7.420) BUN (9-20) mg/dL Glucose (75-100) mg/dL AST (5-40) units/L ALT (7-56) units/L Alkaline Phosphatase (35-129) units/L NT-Pro-B Natriuret Pep 6776 H (0-900) pg/mL Albumin (3.9-5) g/dL Urine WBC (Auto) (0.0-6.0) /HPF 11/01/18 Range/Units 15:57 WBC (4.5-11.0) K/mm3 RBC (3.65-5.03) M/mm3 Hgb (11.8-15.2) gm/dl Hct (35.5-45.6) % RDW (13.2-15.2) % Plt Count (140-440) K/mm3 Lymph % (Auto) (13.4-35.0) % [place] % (Auto) (0.0-7.3) % Lymph # (1.2-5.4) K/mm3 [place] # (0.0-0.8) K/mm3 Seg Neutrophils % (40.0-70.0) % Seg Neutrophils # (1.8-7.7) K/mm3 PT (12.2-14.9) Sec. INR (0.87-1.13) POC ABG pH (7.35-7.45) POC ABG pCO2 (35-45) POC ABG pO2 (80-105) VBG pH (7.320-7.420) BUN (9-20) mg/dL Glucose (75-100) mg/dL AST (5-40) units/L ALT (7-56) units/L Alkaline Phosphatase (35-129) units/L NT-Pro-B Natriuret Pep (0-900) pg/mL Albumin (3.9-5) g/dL Urine WBC (Auto) > 182.0 H (0.0-6.0) /HPF Assessment and Plan - Patient Problems (1) Sepsis Current Visit: Yes Status: Acute Plan to address problem: Admit to IMCU, IV antibiotic therapy, CBC, CMP, Urinalysis, chest x ray, IVF resuscitation therapy, blood cultures, monitor uop q shift. (2) Dementia Current Visit: Yes Status: Acute Qualifiers: Dementia behavioral disturbance: without behavioral disturbance Plan to address problem: IVF resuscitation therapy, supportive care, treat sepsis. (3) Seizure Current Visit: Yes Status: Acute Plan to address problem: Continue current therapy, seizure precautions. (4) UTI (urinary tract infection) Current Visit: Yes Status: Acute Qualifiers: Encounter type: initial encounter Plan to address problem: IV antibiotic therapy, CBC, CMP, Urinalysis. (5) Respiratory failure Current Visit: Yes Status: Acute Qualifiers: Chronicity: acute Respiratory failure complication: hypoxia Qualified Code(s): J96.01 - Acute respiratory failure with hypoxia Plan to address problem: Supplemental oxygen, nebulizer therapy, VQ scan, pulse oximetry, Chest X ray, NIPPV (6) DVT prophylaxis Current Visit: Yes Status: Acute Plan to address problem: SCD to BLE while in bed, Prophylactic lovenox
--- NOTE | 2018-11-01 16:52 | XRay Report ---
PROCEDURE: XR CHEST 1V AP TECHNIQUE: Chest radiograph single view. HISTORY: sob COMPARISONS: August 02, 2018. FINDINGS: Heart: Normal. Mediastinum/Vessels: Normal. Lungs/Pleural space: There is some atelectasis at the left lung base Bony thorax: No acute osseous abnormality. Life support devices: Left central venous catheter present with tip at the SVC IMPRESSION: Atelectasis at the left lung base No acute changes identified This document is electronically signed by Bry Luo MD., November 01 2018 04:51:09 PM ET
--- NOTE | 2018-11-01 17:00 | Emergency Department Report ---
ED Shortness of Breath HPI - General Chief Complaint: Dyspnea/Respdistress Stated Complaint: SOB Time Seen by Provider: 11/01/18 14:31 Source: patient, EMS Mode of arrival: Stretcher Limitations: Altered Mental Status, Physical Limitation - History of Present Illness Initial Comments: 67-year-old male sent to the ER by nurse call for difficulty breathing today. Patient found to be a risk to her distress with O2 sats in the 80s. Patient currently receiving vancomycin for infected decubitus ulcer. Pt alert, somewhat responds to questioning. Hx of dementia MD Complaint: shortness of breath -: This afternoon Severity: severe Consistency: constant Improves With: nothing Worsens With: nothing Known History Of: congestive heart failure Treatments Prior to Arrival: oxygen - Related Data Home Medications Medication Instructions Recorded Confirmed Last Taken Multivit-Min/Iron Fum/Folic AC 1 each PO DAILY 03/24/18 11/01/18 Unknown [Hjeme-Laxroyf-Jblbndwt Tablet] Acetaminophen 650 mg NGTUBE Q6H PRN 07/30/18 11/01/18 Unknown Ipratropium/Albuterol Sulfate 1 ampul IH BID 07/30/18 11/01/18 Unknown [DUONEB *Not for PRN Use*] Tamsulosin [Flomax] 0.4 mg PO QDAY 07/30/18 11/01/18 Unknown Vit C/Ascorbate Calcium,Sodium 500 mg NGTUBE BID 07/30/18 11/01/18 Unknown [Vitamin C 500 mg/15 ml Liquid] Zinc Sulfate 220 mg NGTUBE QDAY 07/30/18 11/01/18 Unknown levETIRAcetam [Keppra INJ] 500 mg PO Q12H 07/30/18 11/01/18 Unknown Insulin Aspart [Novolog] 0 unit SQ AC 11/01/18 11/01/18 Unknown Vancomycin/Water For Inj (Peg) 1 gm IV Q48H 11/01/18 11/01/18 Unknown [Vancomycin 1 Gram/200 ml Bag] Previous Rx's Medication Instructions Recorded Last Taken Type Phosphorus #1 [K-Phos Neutral] 250 mg PO QID #30 tablet 08/23/18 Unknown Rx hydroCHLOROthiazide [HCTZ] 12.5 mg PO QDAY #30 tablet 08/23/18 Unknown Rx AtorvaSTATin [Lipitor] 40 mg NGTUBE QHS #30 tablet 10/21/18 Unknown Rx cloNIDine-TTS PATCH [Catapres-Tts 0.2 mg TD Tu #7 patch 10/21/18 Unknown Rx 0.2mg Patch] Allergies Allergy/AdvReac Type Severity Reaction Status Date / Time lisinopril Allergy Unknown Verified 10/01/18 15:17 tramadol Allergy Unknown Verified 07/29/18 18:39 ED Review of Systems ROS: Stated complaint: SOB Other details as noted in HPI Comment: Unobtainable due to pts medical conditions ED Past Medical Hx - Past Medical History Hx Hypertension: Yes Hx CVA: Yes Hx Heart Attack/AMI: Yes Hx Congestive Heart Failure: Yes Hx Diabetes: Yes Hx Deep Vein Thrombosis: No Hx Pulmonary Embolism: No Hx GERD: No Hx Liver Disease: No Hx Renal Disease: No Hx Sickle Cell Disease: No Hx Arthritis: Yes Hx Headaches / Migraines: No Hx Seizures: Yes Hx Kidney Stones: Yes Hx Psychiatric Treatment: Yes (Dementia) Hx Asthma: No Hx COPD: Yes Hx Tuberculosis: No Hx Dementia: Yes Hx HIV: No Additional medical history: Benign prostatic hypertrophy - Surgical History Hx Coronary Stent: No Hx Open Heart Surgery: No Hx Pacemaker: No Hx Internal Defibrillator: No Hx Cholecystectomy: No Hx Appendectomy: No Hx Breast Surgery: No Additional Surgical History: debridement of sacral wound, gastrostomy - Social History Smoking Status: Never Smoker - Medications Home Medications: Home Medications Medication Instructions Recorded Confirmed Last Taken Type Multivit-Min/Iron Fum/Folic AC 1 each PO DAILY 03/24/18 11/01/18 Unknown History [Rthfp-Bxvseoz-Djdyyiwz Tablet] Acetaminophen 650 mg NGTUBE Q6H PRN 07/30/18 11/01/18 Unknown History Ipratropium/Albuterol Sulfate 1 ampul IH BID 07/30/18 11/01/18 Unknown History [DUONEB *Not for PRN Use*] Tamsulosin [Flomax] 0.4 mg PO QDAY 07/30/18 11/01/18 Unknown History Vit C/Ascorbate Calcium,Sodium 500 mg NGTUBE BID 07/30/18 11/01/18 Unknown History [Vitamin C 500 mg/15 ml Liquid] Zinc Sulfate 220 mg NGTUBE QDAY 07/30/18 11/01/18 Unknown History levETIRAcetam [Keppra INJ] 500 mg PO Q12H 07/30/18 11/01/18 Unknown History Phosphorus #1 [K-Phos Neutral] 250 mg PO QID #30 tablet 08/23/18 11/01/18 Unk nown Rx hydroCHLOROthiazide [HCTZ] 12.5 mg PO QDAY #30 tablet 08/23/18 11/01/18 Unknown Rx AtorvaSTATin [Lipitor] 40 mg NGTUBE QHS #30 tablet 10/21/18 11/01/18 Unknown Rx cloNIDine-TTS PATCH [Catapres-Tts 0.2 mg TD Tu #7 patch 10/21/18 11/01/18 Unknown Rx 0.2mg Patch] Insulin Aspart [Novolog] 0 unit SQ AC 11/01/18 11/01/18 Unknown History Vancomycin/Water For Inj (Peg) 1 gm IV Q48H 11/01/18 11/01/18 Unknown History [Vancomycin 1 Gram/200 ml Bag] ED Physical Exam - General Limitations: Altered Mental Status, Physical Limitation General appearance: alert, lethargic, in distress - Head Head exam: Present: atraumatic, normocephalic - Eye Eye exam: Present: normal appearance - ENT ENT exam: Present: mucous membranes dry - Neck Neck exam: Present: normal inspection - Respiratory Respiratory exam: Present: respiratory distress, decreased breath sounds, other (tachypneic) - Cardiovascular Cardiovascular Exam: Present: tachycardia - GI/Abdominal GI/Abdominal exam: Present: other (PEG tube in place). Absent: distended - Extremities Exam Extremities exam: Present: other (contractures present) - Neurological Exam Neurological exam: Present: alert, altered - Psychiatric Psychiatric exam: Present: normal affect, normal mood - Skin Skin exam: Present: warm, dry, intact, normal color ED Course Vital Signs 11/01/18 11/01/18 11/01/18 14:26 14:30 14:46 Temperature Pulse Rate 120 H 121 H Respiratory 69 H 64 H Rate Blood Pressure 122/73 132/73 O2 Sat by Pulse 100 100 Oximetry 11/01/18 11/01/18 11/01/18 15:00 15:06 15:15 Temperature 101 F H Pulse Rate 117 H 115 H Respiratory 56 H 52 H Rate Blood Pressure 132/73 O2 Sat by Pulse 100 100 Oximetry 11/01/18 11/01/18 11/01/18 15:30 15:45 16:00 Temperature Pulse Rate 117 H 113 H 110 H Respiratory 48 H 44 H 47 H Rate Blood Pressure 124/93 109/66 98/67 O2 Sat by Pulse 100 98 99 Oximetry 11/01/18 11/01/18 11/01/18 16:15 16:30 16:45 Temperature Pulse Rate 109 H 107 H 107 H Respiratory 32 H 39 H 38 H Rate Blood Pressure 114/63 113/68 120/68 O2 Sat by Pulse 98 98 99 Oximetry 11/01/18 17:46 Temperature Pulse Rate Respiratory 36 H Rate Blood Pressure O2 Sat by Pulse 100 Oximetry ED Medical Decision Making - Lab Data Result diagrams: 11/01/18 14:50 11/01/18 14:50 - EKG Data -: EKG Interpreted by Ny EKG shows normal: sinus rhythm, intervals, ST-T waves Rate: tachycardia - EKG Data When compared to previous EKG there are: no significant change Interpretation: other (LBBB) - Radiology Data Radiology results: report reviewed, image reviewed - Medical Decision Making 67-year-old male presents to ED in respiratory distress. Patient initially tachypneic with a rate in the 50s. Patient was immediately placed on BIPAP, which improved his respirations with rate in the 20s-30s. BNP elevated, however, chest x-ray negative for pulmonary edema or infiltrate. ABG unremarkable. Patient is febrile with a temp of 101 and WBCs of 15. Sepsis alert called. Cultures drawn. Pt given vancomycin and cefepime empirically. UTI on UA. Gentle hydration given as pt has hx of CHF and not found to be hypotensive during ED stay. EKG shows stable LBBB. V/Q scan ordered due to unexplained resp distress. Pt admitted to hospitalist, Dr Leija, for further management. - Differential Diagnosis CHF, pneumonia, PE Critical Care Time: Yes Critical care time in (mins) excluding proc time.: 35 Critical care attestation.: If time is entered above; I have spent that time in minutes in the direct care of this critically ill patient, excluding procedure time. Critical Care Time: 35 minutes ED Disposition Clinical Impression: Acute respiratory failure, Anemia Sepsis Qualifiers: Sepsis type: sepsis due to unspecified organism Qualified Code(s): A41.9 - Sepsis, unspecified organism Acute renal failure Qualifiers: Acute renal failure type: with acute tubular necrosis Qualified Code(s): N17.0 - Acute kidney failure with tubular necrosis Disposition: DC-09 OP ADMIT IP TO THIS HOSP Is pt being admited?: Yes Condition: Stable Referrals: PRIMARY CARE, [Primary Care Provider] - 3-5 Days
[2018-11-01] MEDS ORDERED: SODIUM CHLORIDE FLUSH SYRINGE 10 ML IV PRN (17:15)
[2018-11-01] MEDS ORDERED: PROVENTIL IH PRN (17:15)
[2018-11-01] MEDS ORDERED: TYLENOL FEEDTUBE PRN (17:18)
[2018-11-01] MEDS ORDERED: LEVETIRACETAM 500 MG PO SCH (17:30)
[2018-11-01] MEDS: K-PHOS NEUTRAL FEEDTUBE SCH ×2 (19:23→22:05)
[2018-11-01] MEDS ORDERED: MORPHINE ONE (19:29)
[2018-11-01] MEDS: MORPHINE IV PRN (19:35)
[2018-11-01] MEDS ORDERED: VANCOMYCIN IV SCH (20:00)
[2018-11-01] MEDS ORDERED: WATER FOR INJ IV SCH (20:00)
[2018-11-01] MEDS ORDERED: VANCOMYCIN PHARMACY TO DOSE IV SCH (21:00)
[2018-11-01] MEDS ORDERED: VIT C NGTUBE SCH (22:00)
[2018-11-01] MEDS ORDERED: ASCORBATE CALCIUM SODIUM NGTUBE SCH (22:00)
[2018-11-01] MEDS: SODIUM CHLORIDE FLUSH SYRINGE 10 ML IV SCH (22:04)
[2018-11-01] MEDS: VITAMIN C FEEDTUBE SCH (22:04)
[2018-11-01] MEDS: KEPPRA FEEDTUBE SCH (22:05)
[2018-11-02] MEDS: DUONEB *Not for PRN Use IH SCH ×4 (01:59→23:26)
[2018-11-02] MEDS: TYLENOL FEEDTUBE PRN ×2 (06:55→21:36)
[2018-11-02] MEDS ORDERED: NON-FORMULARY (Multivit-Min/Iron Fum/Folic Ac [Multi-Vitamin-Minerals Tablet] 1 EACH) PO SCH (10:00)
[2018-11-02] MEDS ORDERED: NON-FORMULARY (Zinc Sulfate [Zinc Sulfate] 220 MG) NGTUBE SCH (10:00)
[2018-11-02] MEDS: Centrum Liq FEEDTUBE SCH (10:54)
[2018-11-02] MEDS: KEPPRA FEEDTUBE SCH ×2 (10:55→21:36)
[2018-11-02] MEDS: SODIUM CHLORIDE FLUSH SYRINGE 10 ML IV SCH ×2 (10:55→21:36)
[2018-11-02] MEDS: LOVENOX SUB-Q SCH (10:55)
[2018-11-02] MEDS: VITAMIN C FEEDTUBE SCH ×2 (10:55→21:36)
[2018-11-02] MEDS: ZINC SULFATE PO SCH (10:56)
[2018-11-02] MEDS ORDERED: NACL 0.9% 1000 ML IV ONE (12:00)
--- NOTE | 2018-11-02 12:32 | Progress Note ---
Assessment and Plan Assessment and plan: 67 YO Male Snf Facility Resident as [facility] with HTN, CVA, Obstructive Uropathy, Diastolic CHF, Contracture, Sacral Decubitus Ulcers, CO, DM, OA, Seizure Disorder, COPD, Dementia, BPH presents to ED for evaluation. Pt is stuporous and unable to provide history. Pt history taken from ED Staff, EMS, and SNF Staff. As per staff, the patient was found to have respiratory distress upon evaluation this morning. Pt found to have pulse oximetry in the 80's. EMS notified and patient subsequently transported to [facility] for further care and evaluation. Pt seen and evaluated in ED and found to have UTI, Sepsis, Encephalopathy as well as Acute Hypoxemic Respiratory Failure. Pt initiated on NIPPV in ED with improvement in symptoms. Pt admitted to IMCU and initiated on Sepsis protocol. Prior admission on 10/01/18 reviewed. (1) Sepsis Current Visit: Yes Status: Acute Plan to address problem: Continue IMCU care, place on isolation, ID consult, IV antibiotic therapy, CBC, CMP, Urinalysis, chest x ray, IVF resuscitation therapy, blood cultures, monitor uop q shift. (2) Respiratory failure Current Visit: Yes Status: Acute Qualifiers: Chronicity: acute Respiratory failure complication: hypoxia Qualified Code(s): J96.01 - Acute respiratory failure with hypoxia Plan to address problem: Supplemental oxygen, nebulizer therapy,pulse oximetry, Chest X ray, NIPPV UNABLE TO GET v/q scan oBTAIN PULMONARY CONUSLT (3) Seizure Current Visit: Yes Status: Acute Plan to address problem: Continue current therapy, seizure precautions. (4) UTI (urinary tract infection) Current Visit: Yes Status: Acute Qualifiers: Encounter type: initial encounter Plan to address problem: IV antibiotic therapy, CBC, CMP, Urinalysis. (5) Dementia Current Visit: Yes Status: Acute Qualifiers: Dementia behavioral disturbance: without behavioral disturbance Plan to address problem: IVF resuscitation therapy, supportive care, treat sepsis. (6) sacral pressure ulcer -infected. POA WOUND CARE CONSULT. CONTINUE ABX. (7)DVT prophylaxis Current Visit: Yes Status: Acute Plan to address problem: SCD to BLE while in bed, Prophylactic lovenox POOR PROGNOSIS History Interval history: Patient seen and examined, remains on BIPAP, lethargic appearing. Hospitalist Physical - Physical exam Narrative exam: General appearance: Present: CHRONICALLY ILL, MODERATE DISTRESS - EENT Eyes: Present: miosis ENT: clear oral mucosa, no hearing intact - Neck Neck: Present: supple, normal ROM - Respiratory Respiratory effort:labored, on BIPAP Respiratory: bilateral: diminshed - Cardiovascular Heart Sounds: Present: S1 & S2. Absent: rub, click - Extremities Extremities: pulses symmetrical, No edema Extremity abnormal: other (BLE Contracture) Peripheral Pulses: within normal limits - Abdominal General gastrointestinal: Present: soft, non-tender, non-distended, normal bowel sounds Male genitourinary: Present: normal - Integumentary Integumentary: Present: clear, warm, dry - Musculoskeletal Musculoskeletal: generalized weakness - Psychiatric Psychiatric: no appropriate mood/affect, no intact judgment & insight, no memory intact - Neurologic Neurologic: CNII-XII intact, focal deficits, no moves all extremities, no gait normal - Constitutional Vitals: Temp Pulse Resp BP Pulse Ox 100.5 F H 76 25 H 91/57 100 11/02/18 04:51 11/02/18 10:00 11/02/18 08:00 11/02/18 07:44 11/02/18 08:00 General appearance: Present: mild distress Results - Labs CBC & Chem 7: 11/03/18 03:41 11/03/18 03:41 Labs: Laboratory Last Values WBC 15.3 K/mm3 (4.5-11.0) H 11/01/18 14:50 RBC 2.76 M/mm3 (3.65-5.03) L 11/01/18 14:50 Hgb 7.9 gm/dl (11.8-15.2) L 11/01/18 14:50 Hct 23.5 % (35.5-45.6) L 11/01/18 14:50 MCV 85 fl (84-94) 11/01/18 14:50 MCH 29 pg (28-32) 11/01/18 14:50 MCHC 34 % (32-34) 11/01/18 14:50 RDW 18.3 % (13.2-15.2) H 11/01/18 14:50 Plt Count 567 K/mm3 (140-440) H 11/01/18 14:50 Lymph % (Auto) 6.5 % (13.4-35.0) L 11/01/18 14:50 [place] % (Auto) 8.5 % (0.0-7.3) H 11/01/18 14:50 Eos % (Auto) 1.0 % (0.0-4.3) 11/01/18 14:50 Baso % (Auto) 0.6 % (0.0-1.8) 11/01/18 14:50 Lymph # 1.0 K/mm3 (1.2-5.4) L 11/01/18 14:50 [place] # 1.3 K/mm3 (0.0-0.8) H 11/01/18 14:50 Eos # 0.1 K/mm3 (0.0-0.4) 11/01/18 14:50 Baso # 0.1 K/mm3 (0.0-0.1) 11/01/18 14:50 Seg Neutrophils % 83.4 % (40.0-70.0) H 11/01/18 14:50 Seg Neutrophils # 12.7 K/mm3 (1.8-7.7) H 11/01/18 14:50 PT 16.3 Sec. (12.2-14.9) H 11/01/18 14:50 INR 1.35 (0.87-1.13) H 11/01/18 14:50 POC ABG pH 7.494 (7.35-7.45) H 11/01/18 15:27 POC ABG pCO2 34.5 (35-45) L 11/01/18 15:27 POC ABG pO2 139 (80-105) H 11/01/18 15:27 POC ABG HCO3 26.5 (22-26 mml/L) 11/01/18 15:27 POC ABG Total CO2 28 (23-27mmol/L) 11/01/18 15:27 POC ABG O2 Sat 99 11/01/18 15:27 POC ABG Base Excess 3 ((-2) - (+3)mmol/L) 11/01/18 15:27 VBG pH 7.499 (7.320-7.420) H 11/01/18 14:50 50 % 11/01/18 15:27 Sodium 142 mmol/L (137-145) 11/01/18 14:50 Potassium 4.8 mmol/L (3.6-5.0) 11/01/18 14:50 Chloride 102.0 mmol/L (98-107) 11/01/18 14:50 Carbon Dioxide 25 mmol/L (22-30) 11/01/18 14:50 20 mmol/L 11/01/18 14:50 BUN 49 mg/dL (9-20) H 11/01/18 14:50 1.0 mg/dL (0.8-1.5) 11/01/18 14:50 Estimated GFR > 60 ml/min 11/01/18 14:50 49 % 11/01/18 14:50 Glucose 132 mg/dL (75-100) H 11/01/18 14:50 Lactic Acid 1.80 mmol/L (0.7-2.0) 11/01/18 14:50 Calcium 8.9 mg/dL (8.4-10.2) 11/01/18 14:50 0.30 mg/dL (0.1-1.2) 11/01/18 14:50 AST 90 units/L (5-40) H 11/01/18 14:50 ALT 77 units/L (7-56) H 11/01/18 14:50 350 units/L (35-129) H 11/01/18 14:50 NT-Pro-B Natriuret Pep 6776 pg/mL (0-900) H 11/01/18 14:50 7.9 g/dL (6.3-8.2) 11/01/18 14:50 1.6 g/dL (3.9-5) L 11/01/18 14:50 0.3 % 11/01/18 14:50 Yellow (Yellow) 11/01/18 15:57 Turbid (Clear) 11/01/18 15:57 6.0 (5.0-7.0) 11/01/18 15:57 Ur Specific [place] 1.016 (1.003-1.030) 11/01/18 15:57 100 mg/dl mg/dL (Negative) 11/01/18 15:57 Neg mg/dL (Negative) 11/01/18 15:57 Neg mg/dL (Negative) 11/01/18 15:57 Neg (Negative) 11/01/18 15:57 Neg (Negative) 11/01/18 15:57 Neg (Negative) 11/01/18 15:57 < 2.0 mg/dL (<2.0) 11/01/18 15:57 Ur Leukocyte Esterase Mod (Negative) 11/01/18 15:57 > 182.0 /HPF (0.0-6.0) H 11/01/18 15:57 40.0 /HPF (0.0-6.0) 11/01/18 15:57 U Epithel Cells (Auto) 8.0 /HPF (0-13.0) 11/01/18 15:57 3+ /HPF 11/01/18 15:57 3+ /HPF 11/01/18 15:57 Random Vancomycin 13.9 ug/mL (0-40.0) 11/02/18 05:05 Active Medications - Current Medications Current Medications: Generic Name Dose Route Start Last Admin Trade Name Freq PRN Reason Stop Dose Admin Acetaminophen 650 mg 11/01/18 17:38 11/02/18 06:55 Tylenol FEEDTUBE 650 mg Q4H PRN Administration Pain, Moderate (4-6) Albuterol 2.5 mg 11/01/18 17:15 Proventil IH Q3HRT PRN Shortness Of Breath Albuterol/Ipratropium 1 ampul 11/01/18 22:00 11/02/18 07:56 Duoneb *Not For Prn Use* IH 1 ampul BID NORA Administration Ascorbic Acid 500 mg 11/01/18 22:00 11/02/18 10:55 Vitamin C FEEDTUBE 500 mg BID NORA Administration Atorvastatin Calcium 40 mg 11/01/18 22:00 11/01/18 22:05 Lipitor FEEDTUBE Not Given QHS NORA Clonidine HCl 0.2 mg 11/05/18 17:18 Catapres-Tts Patch TD Tu NORA Enoxaparin Sodium 40 mg 11/02/18 10:00 11/02/18 10:55 Lovenox SUB-Q 40 mg QDAY@1000 NORA Administration Vancomycin HCl 1 gm in 250 mls @ 167.007 mls/hr 11/03/18 10:00 Vancomycin/Ns 1 Gm/250 Ml IV Q48H NORA Cefepime HCl 1 gm in 100 mls @ 200 mls/hr 11/02/18 14:00 Maxipime/Ns 1 Gm/100 Ml IV Q8HR NORA Protocol Levetiracetam 500 mg 11/01/18 22:00 11/02/18 10:55 Keppra FEEDTUBE 500 mg BID NORA Administration Morphine Sulfate 2 mg 11/01/18 17:15 11/01/18 19:35 Morphine IV 2 mg Q4H PRN Administration Pain, Moderate (4-6) Multivitamins 5 ml 11/02/18 10:00 11/02/18 10:54 Centrum Liq FEEDTUBE 5 ml QDAY NORA Administration Sodium Chloride 10 ml 11/01/18 22:00 11/02/18 10:55 Sodium Chloride Flush Syringe 10 Ml IV 10 ml BID NORA Administration Sodium Chloride 10 ml 11/01/18 17:15 Sodium Chloride Flush Syringe 10 Ml IV PRN PRN LINE FLUSH Zinc Sulfate 220 mg 11/02/18 10:00 11/02/18 10:56 Zinc Sulfate PO 220 mg DAILY NORA Administration
[2018-11-02] MEDS: MAXIPIME/NS 1 GM/100 ML 1 GM/100 ML BAG IV SCH ×2 (15:15→21:37)
--- NOTE | 2018-11-03 03:56 | Consultation ---
History of Present Illness Consult date: 11/03/18 Requesting physician: TRACEY ROTH Reason for consult: other (Sepsis, Encephaloapthy, acute hypoxic respiratory failure) History of present illness: 67 YO Male Longterm Facility Resident as [facility] with HTN, CVA, Obstructive Uropathy, Diastolic CHF, Contracture, Sacral Decubitus Ulcers, [place], DM, OA, Seizure Disorder, COPD, Dementia, BPH presents to ED for evaluation. Pt is stuporous and unable to provide history. Pt history taken from ED Staff, EMS, and SNF Staff. As per staff, the patient was found to have respiratory distress upon evaluation this morning. Pt found to have pulse oximetry in the 80's. EMS notified and patient subsequently transported to [facility] for further care and evaluation. Pt seen and evaluated in ED and found to have UTI, Sepsis, Encephalopathy as well as Acute Hypoxemic Respiratory Failure. Pt initiated on NIPPV in ED with improvement in symptoms. Pt admitted to IMCU and initiated on Sepsis protocol. No further history obtainable. Prior admission on 10/01/18 reviewed. I have been consulted fro critical care management- hypoxia, severe sepsis, acute encephalopathy Patient seen and examined. Vitals, labs, medications, chart and reviewed Past History Past Medical History: acute [place], arthritis, COPD, diabetes, seizures, other (Dementia) Past Surgical History: Other (G Tube, Debridement of Sacral wound) Social history: . denies: smoking, alcohol abuse, prescription drug abuse Family history: diabetes, hypertension Medications and Allergies Allergies Allergy/AdvReac Type Severity Reaction Status Date / Time lisinopril Allergy Unknown Verified 10/01/18 15:17 tramadol Allergy Unknown Verified 07/29/18 18:39 Home Medications Medication Instructions Recorded Confirmed Last Taken Type Multivit-Min/Iron Fum/Folic AC 1 each PO DAILY 03/24/18 11/01/18 Unknown History [Eidqc-Ycibwqf-Cxanhfhi Tablet] Acetaminophen 650 mg NGTUBE Q6H PRN 07/30/18 11/01/18 Unknown History Ipratropium/Albuterol Sulfate 1 ampul IH BID 07/30/18 11/01/18 Unknown History [DUONEB *Not for PRN Use*] Tamsulosin [Flomax] 0.4 mg PO QDAY 07/30/18 11/01/18 Unknown History Vit C/Ascorbate Calcium,Sodium 500 mg NGTUBE BID 07/30/18 11/01/18 Unknown History [Vitamin C 500 mg/15 ml Liquid] Zinc Sulfate 220 mg NGTUBE QDAY 07/30/18 11/01/18 Unknown History levETIRAcetam [Keppra INJ] 500 mg PO Q12H 07/30/18 11/01/18 Unknown History Phosphorus #1 [K-Phos Neutral] 250 mg PO QID #30 tablet 08/23/18 11/01/18 Unknown Rx hydroCHLOROthiazide [HCTZ] 12.5 mg PO QDAY #30 tablet 08/23/18 11/01/18 Unknown Rx AtorvaSTATin [Lipitor] 40 mg NGTUBE QHS #30 tablet 10/21/18 11/01/18 Unknown Rx cloNIDine-TTS PATCH [Catapres-Tts 0.2 mg TD Tu #7 patch 10/21/18 11/01/18 Unknown Rx 0.2mg Patch] Insulin Aspart [Novolog] 0 unit SQ AC 11/01/18 11/01/18 Unknown History Vancomycin/Water For Inj (Peg) 1 gm IV Q48H 11/01/18 11/01/18 Unknown History [Vancomycin 1 Gram/200 ml Bag] Active Meds: Active Medications Acetaminophen (Tylenol) 650 mg FEEDTUBE Q4H PRN PRN Reason: Pain, Moderate (4-6) Last Admin: 11/02/18 21:36 Dose: 650 mg Documented by: Albuterol (Proventil) 2.5 mg IH Q3HRT PRN PRN Reason: Shortness Of Breath Albuterol/Ipratropium (Duoneb *Not For Prn Use*) 1 ampul IH BID [facility] Last Admin: 11/02/18 23:26 Dose: 1 ampul Documented by: Ascorbic Acid (Vitamin C) 500 mg FEEDTUBE BID [facility] Last Admin: 11/02/18 21:36 Dose: 500 mg Documented by: Atorvastatin Calcium (Lipitor) 40 mg FEEDTUBE QHS [facility] Last Admin: 11/02/18 21:35 Dose: 40 mg Documented by: Clonidine HCl (Catapres-Tts Patch) 0.2 mg TD Tu [facility] Enoxaparin Sodium (Lovenox) 40 mg SUB-Q QDAY@1000 [facility] Last Admin: 11/02/18 10:55 Dose: 40 mg Documented by: Vancomycin HCl (Vancomycin/Ns 1 Gm/250 Ml) 1 gm in 250 mls @ 167.007 mls/hr IV Q48H [facility] Cefepime HCl (Maxipime/Ns 1 Gm/100 Ml) 1 gm in 100 mls @ 200 mls/hr IV Q8HR [facility] ; Protocol Last Admin: 11/02/18 21:37 Dose: 200 mls/hr Documented by: Levetiracetam (Keppra) 500 mg FEEDTUBE BID [facility] Last Admin: 11/02/18 21:36 Dose: 500 mg Documented by: Morphine Sulfate (Morphine) 2 mg IV Q4H PRN PRN Reason: Pain, Moderate (4-6) Last Admin: 11/01/18 19:35 Dose: 2 mg Documented by: Multivitamins (Centrum Liq) 5 ml FEEDTUBE QDAY [facility] Last Admin: 11/02/18 10:54 Dose: 5 ml Documented by: Sodium Chloride (Sodium Chloride Flush Syringe 10 Ml) 10 ml IV BID [facility] Last Admin: 11/02/18 21:36 Dose: 10 ml Documented by: Sodium Chloride (Sodium Chloride Flush Syringe 10 Ml) 10 ml IV PRN PRN PRN Reason: LINE FLUSH Zinc Sulfate (Zinc Sulfate) 220 mg PO DAILY [facility] Last Admin: 11/02/18 10:56 Dose: 220 mg Documented by: Physical Examination Vital signs: Vital Signs Pulse Ox 100 11/01/18 14:26 General appearance: Present: CHRONICALLY ILL, MODERATE DISTRESS - EENT Eyes: Present: miosis ENT: clear oral mucosa, no hearing intact - Neck Neck: Present: supple, normal ROM - Respiratory Respiratory effort:labored, on BIPAP Respiratory: bilateral: diminished - Cardiovascular Heart Sounds: Present: S1 & S2. Absent: rub, click - Extremities Extremities: pulses symmetrical, No edema Extremity abnormal: other (BLE Contracture) Peripheral Pulses: within normal limits - Abdominal General gastrointestinal: Present: soft, non-tender, non-distended, normal bowel sounds Male genitourinary: Present: normal - Integumentary Integumentary: Present: clear, warm, dry - Musculoskeletal Musculoskeletal: generalized weakness - Psychiatric Psychiatric: unable to assess, in distress - Neurologic Neurologic: Unable to assess, encephaloapthic, on BIPAP Results - Laboratory Findings CBC and BMP: 11/17/18 08:02 11/17/18 08:02 ABG POC ABG pH 7.494 (7.35-7.45) H 11/01/18 15:27 POC ABG pCO2 34.5 (35-45) L 11/01/18 15:27 POC ABG pO2 139 (80-105) H 11/01/18 15:27 POC ABG HCO3 26.5 (22-26 mml/L) 11/01/18 15:27 POC ABG Total CO2 28 (23-27mmol/L) 11/01/18 15:27 POC ABG O2 Sat 99 11/01/18 15:27 PT/INR, D-dimer PT 16.3 Sec. (12.2-14.9) H 11/01/18 14:50 INR 1.35 (0.87-1.13) H 11/01/18 14:50 Abnormal lab findings: Abnormal Labs 11/01/18 11/01/18 11/01/18 14:50 14:50 14:50 WBC 15.3 H RBC 2.76 L Hgb 7.9 L Hct 23.5 L RDW 18.3 H Plt Count 567 H Lymph % (Auto) 6.5 L [place] % (Auto) 8.5 H Lymph # 1.0 L [place] # 1.3 H Seg Neutrophils % 83.4 H Seg Neutrophils # 12.7 H PT 16.3 H INR 1.35 H POC ABG pH POC ABG pCO2 POC ABG pO2 VBG pH BUN 49 H Glucose 132 H AST 90 H ALT 77 H Alkaline Phosphatase 350 H NT-Pro-B Natriuret Pep Albumin 1.6 L Urine WBC (Auto) 11/01/18 11/01/18 11/01/18 14:50 14:50 15:27 WBC RBC Hgb Hct RDW Plt Count Lymph % (Auto) [place] % (Auto) Lymph # [place] # Seg Neutrophils % Seg Neutrophils # PT INR POC ABG pH 7.494 H POC ABG pCO2 34.5 L POC ABG pO2 139 H VBG pH 7.499 H BUN Glucose AST ALT Alkaline Phosphatase NT-Pro-B Natriuret Pep 6776 H Albumin Urine WBC (Auto) 11/01/18 15:57 WBC RBC Hgb Hct RDW Plt Count Lymph % (Auto) [place] % (Auto) Lymph # [place] # Seg Neutrophils % Seg Neutrophils # PT INR POC ABG pH POC ABG pCO2 POC ABG pO2 VBG pH BUN Glucose AST ALT Alkaline Phosphatase NT-Pro-B Natriuret Pep Albumin Urine WBC (Auto) > 182.0 H - Diagnostic Findings Chest x-ray: image reviewed Assessment and Plan (1) Sepsis- severe Current Visit: Yes Status: Acute Plan to address problem: Volume resuscitation cautiously If needed initiate vasopressor support to keep MAP>65 Follow cultures, if blood cultures are positive will need to discontinue central venous access, based on ID of the organism Antibiotics based on previous cultures UA with urine cultures (2) Respiratory failure Current Visit: Yes Status: Acute Qualifiers: Chronicity: acute Respiratory failure complication: hypoxia Qualified Code(s): J96.01 - Acute respiratory failure with hypoxia Plan to address problem: Supplemental oxygen, nebulizer therapy,pulse oximetry, Chest X ray, NIPPV Wean NIPPV off based on patien's clinical condition and ABGs ABG in am (3) Seizure Current Visit: Yes Status: Acute Plan to address problem: Continue current therapy, seizure precautions. (4) UTI (urinary tract infection) Current Visit: Yes Status: Acute Qualifiers: Encounter type: initial encounter Plan to address problem: IV antibiotic therapy, CBC, CMP, Urinalysis. (5) Dementia Current Visit: Yes Status: Acute Qualifiers: Dementia behavioral disturbance: without behavioral disturbance Plan to address problem: Per primary (6) sacral pressure ulcer -infected. POA WOUND CARE CONSULT. CONTINUE ABX. (7)DVT prophylaxis Current Visit: Yes Status: Acute Plan to address problem: SCD to BLE while in bed, Prophylactic lovenox POOR PROGNOSIS Critical condition Full code in the event of cardiopulmonary arrest Goals of care to be addressed with family
[2018-11-03 04:41] LABS: Hematocrit 22.2 % (35.5-45.6); Hemoglobin 6.9 gm/dl (11.8-15.2); Mean Corpuscular HGB Conc 31 % (32-34); Mean Corpuscular Volume 87 fl (84-94); Platelet Count 519 K/mm3 (140-440); Red Blood Count 2.55 M/mm3 (3.65-5.03); Red Cell Distribution Width 17.9 % (13.2-15.2)
[2018-11-03 05:02] LABS: BUN/Creatinine Ratio 46; Blood Urea Nitrogen 55 mg/dL (9-20); Calcium 8.9 mg/dL (8.4-10.2); Hemolysis Index 1
[2018-11-03] MEDS: MAXIPIME/NS 1 GM/100 ML 1 GM/100 ML BAG IV SCH ×3 (06:11→22:26)
[2018-11-03] MEDS: TYLENOL FEEDTUBE PRN (06:12)
[2018-11-03] MEDS ORDERED: NACL 0.9% 500 ML 500 ML IV NR (08:58)
--- NOTE | 2018-11-03 09:02 | Progress Note ---
Assessment and Plan Assessment and plan: 67 YO Male Care Home Facility Resident as [facility] with HTN, CVA, Obstructive Uropathy, Diastolic CHF, Contracture, Sacral Decubitus Ulcers, [place], DM, OA, Seizure Disorder, COPD, Dementia, BPH presents to ED for evaluation. Pt is stuporous and unable to provide history. Pt history taken from ED Staff, EMS, and SNF Staff. As per staff, the patient was found to have respiratory distress upon evaluation this morning. Pt found to have pulse oximetry in the 80's. EMS notified and patient subsequently transported to [facility] for further care and evaluation. Pt seen and evaluated in ED and found to have UTI, Sepsis, Encephalopathy as well as Acute Hypoxemic Respiratory Failure. Pt initiated on NIPPV in ED with improvement in symptoms. Pt admitted to IMCU and initiated on Sepsis protocol. Prior admission on 10/01/18 reviewed. Sepsis Current Visit: Yes Status: Acute Plan to address problem: Continue IMCU care, place on isolation, ID consult noted, IV antibiotic therapy, CBC, CMP, Urinalysis, chest x ray, IVF resuscitation therapy, blood cultures, monitor uop q shift. Respiratory failure Current Visit: Yes Status: Acute Qualifiers: Chronicity: acute Respiratory failure complication: hypoxia Qualified Code(s): J96.01 - Acute respiratory failure with hypoxia Plan to address problem: Supplemental oxygen, nebulizer therapy,pulse oximetry, Chest X ray, NIPPV UNABLE TO GET v/q scan oBTAIN PULMONARY CONUSLT Anemia of chronic disease Transfuse one unit PRBC Seizure Current Visit: Yes Status: Acute Plan to address problem: Continue current therapy, seizure precautions. UTI (urinary tract infection) Current Visit: Yes Status: Acute Qualifiers: Encounter type: initial encounter Plan to address problem: IV antibiotic therapy, CBC, CMP, Urinalysis. Dementia Current Visit: Yes Status: Acute Qualifiers: Dementia behavioral disturbance: without behavioral disturbance Plan to address problem: IVF resuscitation therapy, supportive care, treat sepsis. sacral pressure ulcer -infected. POA WOUND CARE CONSULT. CONTINUE ABX. DVT prophylaxis Current Visit: Yes Status: Acute Plan to address problem: SCD to BLE while in bed, Prophylactic lovenox POOR PROGNOSIS History Interval history: Patient seen and examined, lethargic appearing NOW OFF BIPAP Hospitalist Physical - Physical exam Narrative exam: General appearance: Present: CHRONICALLY ILL, MILD DISTRESS - EENT Eyes: Present: miosis ENT: clear oral mucosa, no hearing intact - Neck Neck: Present: supple, normal ROM - Respiratory Respiratory effort:labored, on BIPAP Respiratory: bilateral: diminished - Cardiovascular Heart Sounds: Present: S1 & S2. Absent: rub, click - Extremities Extremities: pulses symmetrical, No edema Extremity abnormal: other (BLE Contracture) Peripheral Pulses: within normal limits - Abdominal General gastrointestinal: Present: soft, non-tender, non-distended, normal bowel sounds Male genitourinary: Present: normal - Integumentary Integumentary: Present: stage 4 pressure ulcer-poa - Musculoskeletal Musculoskeletal: generalized weakness - Psychiatric Psychiatric: no appropriate mood/affect, no intact judgment & insight, no memory intact - Neurologic Neurologic: CNII-XII intact, focal deficits, no moves all extremities, no gait normal - Constitutional Vitals: Temp Pulse Resp BP Pulse Ox 99.2 F 90 24 96/56 98 11/03/18 04:00 11/03/18 04:40 11/03/18 04:40 11/03/18 04:40 11/03/18 04:40 General appearance: Present: mild distress Results - Labs CBC & Chem 7: 11/04/18 05:12 11/04/18 05:12 Labs: Laboratory Last Values WBC 12.8 K/mm3 (4.5-11.0) H 11/03/18 03:41 RBC 2.55 M/mm3 (3.65-5.03) L 11/03/18 03:41 Hgb 6.9 gm/dl (11.8-15.2) L 11/03/18 03:41 Hct 22.2 % (35.5-45.6) L 11/03/18 03:41 MCV 87 fl (84-94) 11/03/18 03:41 MCH 27 pg (28-32) L 11/03/18 03:41 MCHC 31 % (32-34) L 11/03/18 03:41 RDW 17.9 % (13.2-15.2) H 11/03/18 03:41 Plt Count 519 K/mm3 (140-440) H 11/03/18 03:41 Lymph % (Auto) 6.5 % (13.4-35.0) L 11/01/18 14:50 [place] % (Auto) 8.5 % (0.0-7.3) H 11/01/18 14:50 Eos % (Auto) 1.0 % (0.0-4.3) 11/01/18 14:50 Baso % (Auto) 0.6 % (0.0-1.8) 11/01/18 14:50 Lymph # 1.0 K/mm3 (1.2-5.4) L 11/01/18 14:50 [place] # 1.3 K/mm3 (0.0-0.8) H 11/01/18 14:50 Eos # 0.1 K/mm3 (0.0-0.4) 11/01/18 14:50 Baso # 0.1 K/mm3 (0.0-0.1) 11/01/18 14:50 Seg Neutrophils % 83.4 % (40.0-70.0) H 11/01/18 14:50 Seg Neutrophils # 12.7 K/mm3 (1.8-7.7) H 11/01/18 14:50 PT 16.3 Sec. (12.2-14.9) H 11/01/18 14:50 INR 1.35 (0.87-1.13) H 11/01/18 14:50 POC ABG pH 7.494 (7.35-7.45) H 11/01/18 15:27 POC ABG pCO2 34.5 (35-45) L 11/01/18 15:27 POC ABG pO2 139 (80-105) H 11/01/18 15:27 POC ABG HCO3 26.5 (22-26 mml/L) 11/01/18 15:27 POC ABG Total CO2 28 (23-27mmol/L) 11/01/18 15:27 POC ABG O2 Sat 99 11/01/18 15:27 POC ABG Base Excess 3 ((-2) - (+3)mmol/L) 11/01/18 15:27 VBG pH 7.499 (7.320-7.420) H 11/01/18 14:50 50 % 11/01/18 15:27 Sodium 147 mmol/L (137-145) H 11/03/18 03:41 Potassium 4.1 mmol/L (3.6-5.0) 11/03/18 03:41 Chloride 110.3 mmol/L (98-107) H 11/03/18 03:41 Carbon Dioxide 23 mmol/L (22-30) 11/03/18 03:41 18 mmol/L 11/03/18 03:41 BUN 55 mg/dL (9-20) H 11/03/18 03:41 1.2 mg/dL (0.8-1.5) 11/03/18 03:41 Estimated GFR > 60 ml/min 11/03/18 03:41 46 % 11/03/18 03:41 Glucose 80 mg/dL (75-100) 11/03/18 03:41 Lactic Acid 1.80 mmol/L (0.7-2.0) 11/01/18 14:50 Calcium 8.9 mg/dL (8.4-10.2) 11/03/18 03:41 0.30 mg/dL (0.1-1.2) 11/01/18 14:50 AST 90 units/L (5-40) H 11/01/18 14:50 ALT 77 units/L (7-56) H 11/01/18 14:50 350 units/L (35-129) H 11/01/18 14:50 NT-Pro-B Natriuret Pep 6776 pg/mL (0-900) H 11/01/18 14:50 7.9 g/dL (6.3-8.2) 11/01/18 14:50 1.6 g/dL (3.9-5) L 11/01/18 14:50 0.3 % 11/01/18 14:50 Yellow (Yellow) 11/01/18 15:57 Turbid (Clear) 11/01/18 15:57 6.0 (5.0-7.0) 11/01/18 15:57 Ur Specific [place] 1.016 (1.003-1.030) 11/01/18 15:57 100 mg/dl mg/dL (Negative) 11/01/18 15:57 Neg mg/dL (Negative) 11/01/18 15:57 Neg mg/dL (Negative) 11/01/18 15:57 Neg (Negative) 11/01/18 15:57 Neg (Negative) 11/01/18 15:57 Neg (Negative) 11/01/18 15:57 < 2.0 mg/dL (<2.0) 11/01/18 15:57 Ur Leukocyte Esterase Mod (Negative) 11/01/18 15:57 > 182.0 /HPF (0.0-6.0) H 11/01/18 15:57 40.0 /HPF (0.0-6.0) 11/01/18 15:57 U Epithel Cells (Auto) 8.0 /HPF (0-13.0) 11/01/18 15:57 3+ /HPF 11/01/18 15:57 3+ /HPF 11/01/18 15:57 Random Vancomycin 13.9 ug/mL (0-40.0) 11/02/18 05:05 Active Medications - Current Medications Current Medications: Generic Name Dose Route Start Last Admin Trade Name Freq PRN Reason Stop Dose Admin Acetaminophen 650 mg 11/01/18 17:38 11/03/18 06:12 Tylenol FEEDTUBE 650 mg Q4H PRN Administration Pain, Moderate (4-6) Albuterol 2.5 mg 11/01/18 17:15 Proventil IH Q3HRT PRN Shortness Of Breath Albuterol/Ipratropium 1 ampul 11/01/18 22:00 11/02/18 23:26 Duoneb *Not For Prn Use* IH 1 ampul BID NORA Administration Ascorbic Acid 500 mg 11/01/18 22:00 11/02/18 21:36 Vitamin C FEEDTUBE 500 mg BID NORA Administration Atorvastatin Calcium 40 mg 11/01/18 22:00 11/02/18 21:35 Lipitor FEEDTUBE 40 mg QHS NORA Administration Clonidine HCl 0.2 mg 11/05/18 17:18 Catapres-Tts Patch TD Tu NORA Enoxaparin Sodium 40 mg 11/02/18 10:00 11/02/18 10:55 Lovenox SUB-Q 40 mg QDAY@1000 NORA Administration Vancomycin HCl 1 gm in 250 mls @ 167.007 mls/hr 11/03/18 10:00 Vancomycin/Ns 1 Gm/250 Ml IV Q48H NORA Cefepime HCl 1 gm in 100 mls @ 200 mls/hr 11/02/18 14:00 11/03/18 06:11 Maxipime/Ns 1 Gm/100 Ml IV 200 mls/hr Q8HR NORA Administration Protocol Sodium Chloride 500 mls @ 0 mls/hr 11/03/18 08:58 Nacl 0.9% 500 Ml IV 11/03/18 10:00 ONCE NR As Directed Levetiracetam 500 mg 11/01/18 22:00 11/02/18 21:36 Keppra FEEDTUBE 500 mg BID NORA Administration Morphine Sulfate 2 mg 11/01/18 17:15 11/01/18 19:35 Morphine IV 2 mg Q4H PRN Administration Pain, Moderate (4-6) Multivitamins 5 ml 11/02/18 10:00 11/02/18 10:54 Centrum Liq FEEDTUBE 5 ml QDAY NORA Administration Sodium Chloride 10 ml 11/01/18 22:00 11/02/18 21:36 Sodium Chloride Flush Syringe 10 Ml IV 10 ml BID NORA Administration Sodium Chloride 10 ml 11/01/18 17:15 Sodium Chloride Flush Syringe 10 Ml IV PRN PRN LINE FLUSH Zinc Sulfate 220 mg 11/02/18 10:00 11/02/18 10:56 Zinc Sulfate PO 220 mg DAILY NORA Administration
[2018-11-03] MEDS ORDERED: VANCOMYCIN/NS 1 GM/250 ML 1 GM/250 ML BAG IV SCH (10:00)
[2018-11-03] MEDS: DUONEB *Not for PRN Use IH SCH (10:25)
[2018-11-03] MEDS: Centrum Liq FEEDTUBE SCH (10:48)
[2018-11-03] MEDS: LOVENOX SUB-Q SCH (10:48)
[2018-11-03] MEDS: SODIUM CHLORIDE FLUSH SYRINGE 10 ML IV SCH ×2 (10:48→22:28)
[2018-11-03] MEDS: KEPPRA FEEDTUBE SCH ×2 (10:48→22:28)
[2018-11-03] MEDS: ZINC SULFATE PO SCH (10:49)
[2018-11-03] MEDS: VITAMIN C FEEDTUBE SCH ×2 (10:49→22:27)
[2018-11-03] MEDS ORDERED: NACL 0.9% 500 ML 500 ML ONE (15:21)
--- NOTE | 2018-11-03 17:00 | Progress Note ---
Assessment and Plan Patient awake. Patient resting on 4L O2. No acute respiratory distress. O2 sat 97%. Patient following simple command. - Patient Problems (1) Respiratory failure Current Visit: Yes Status: Acute Qualifiers: Chronicity: acute Respiratory failure complication: hypoxia Qualified Code(s): J96.01 - Acute respiratory failure with hypoxia Plan to address problem: Continue supplementation. Albuterol and Atrovent treatment q6h. Patient is on Cefepime and Diatomicine. Continue SQ Levonox. Recommend GI prophylexis. (2) Seizure Current Visit: Yes Status: Acute Plan to address problem: Management for neurologist. (3) Sepsis Current Visit: Yes Status: Acute Plan to address problem: Patient is on Cefipime and Daptomicine. (4) UTI (urinary tract infection) Current Visit: Yes Status: Acute Qualifiers: Encounter type: initial encounter Plan to address problem: Patient is on Cefepime and Daptomycine. (5) ARF (acute renal failure) with tubular necrosis Current Visit: No Status: Acute Plan to address problem: Management as for Nephrology. Subjective Date of service: 11/03/18 Interval history: Patient awake. Patient resting on 4L O2. No acute respiratory distress. O2 sat 97%. Patient following simple command. Objective Vital Signs - 12hr 11/03/18 11/03/18 11/03/18 05:00 06:00 07:00 Temperature Pulse Rate 89 97 H 96 H Pulse Rate [ Bilateral Throughout] Pulse Rate [ From Monitor] Respiratory 29 H 33 H 32 H Rate Respiratory Rate [Bilateral Throughout] Blood Pressure 96/63 108/55 86/47 O2 Sat by Pulse 97 97 93 Oximetry 11/03/18 11/03/18 11/03/18 08:00 09:00 10:00 Temperature 98.0 F Pulse Rate 93 H 95 H 95 H Pulse Rate [ 80 Bilateral Throughout] Pulse Rate [ 80 From Monitor] Respiratory 30 H 19 40 H Rate Respiratory 24 Rate [Bilateral Throughout] Blood Pressure 90/57 90/57 100/59 O2 Sat by Pulse 97 93 94 Oximetry 11/03/18 11/03/18 11/03/18 10:26 11:00 12:00 Temperature 98.9 F Pulse Rate 104 H 97 H Pulse Rate [ 84 Bilateral Throughout] Pulse Rate [ 82 From Monitor] Respiratory 23 23 Rate Respiratory 24 Rate [Bilateral Throughout] Blood Pressure 123/67 101/62 O2 Sat by Pulse 96 100 Oximetry 11/03/18 11/03/18 11/03/18 13:00 14:00 15:00 Temperature Pulse Rate 89 84 85 Pulse Rate [ Bilateral Throughout] Pulse Rate [ From Monitor] Respiratory 37 H 28 H 24 Rate Respiratory Rate [Bilateral Throughout] Blood Pressure 99/57 112/58 104/52 O2 Sat by Pulse 100 100 100 Oximetry 11/03/18 11/03/18 11/03/18 15:16 15:30 15:45 Temperature Pulse Rate 85 85 87 Pulse Rate [ Bilateral Throughout] Pulse Rate [ From Monitor] Respiratory 20 26 H 28 H Rate Respiratory Rate [Bilateral Throughout] Blood Pressure 107/55 112/61 116/60 O2 Sat by Pulse 100 100 100 Oximetry 11/03/18 15:46 Temperature 98.3 F Pulse Rate Pulse Rate [ Bilateral Throughout] Pulse Rate [ From Monitor] Respiratory Rate Respiratory Rate [Bilateral Throughout] Blood Pressure O2 Sat by Pulse Oximetry Constitutional: no acute distress, alert, other (Patient weak and contacted) Eyes: non-icteric ENT: oropharynx moist Neck: supple, no lymphadenopathy Effort: normal Ascultation: Bilateral: diminished breath sounds Cardiovascular: regular rate and rhythm Gastrointestinal: normoactive bowel sounds, soft, non-tender Integumentary: normal Extremities: no cyanosis, no edema Neurologic: non-focal exam, pupils equal and round Psychiatric: other (unable to assess ) CBC and BMP: 11/04/18 05:12 11/04/18 05:12 ABG, PT/INR, D-dimer: ABG POC ABG pH 7.494 (7.35-7.45) H 11/01/18 15:27 POC ABG pCO2 34.5 (35-45) L 11/01/18 15:27 POC ABG pO2 139 (80-105) H 11/01/18 15:27 POC ABG HCO3 26.5 (22-26 mml/L) 11/01/18 15:27 POC ABG Total CO2 28 (23-27mmol/L) 11/01/18 15:27 POC ABG O2 Sat 99 11/01/18 15:27 PT/INR, D-dimer PT 16.3 Sec. (12.2-14.9) H 11/01/18 14:50 INR 1.35 (0.87-1.13) H 11/01/18 14:50 Abnormal lab findings: Abnormal Labs 11/01/18 11/01/18 11/01/18 14:50 14:50 14:50 WBC 15.3 H RBC 2.76 L Hgb 7.9 L Hct 23.5 L MCH MCHC RDW 18.3 H Plt Count 567 H Lymph % (Auto) 6.5 L [place] % (Auto) 8.5 H Lymph # 1.0 L [place] # 1.3 H Seg Neutrophils % 83.4 H Seg Neutrophils # 12.7 H PT 16.3 H INR 1.35 H POC ABG pH POC ABG pCO2 POC ABG pO2 VBG pH Sodium Chloride BUN 49 H Glucose 132 H AST 90 H ALT 77 H Alkaline Phosphatase 350 H NT-Pro-B Natriuret Pep Albumin 1.6 L Urine WBC (Auto) Crossmatch 11/01/18 11/01/18 11/01/18 14:50 14:50 15:27 WBC RBC Hgb Hct MCH MCHC RDW Plt Count Lymph % (Auto) [place] % (Auto) Lymph # [place] # Seg Neutrophils % Seg Neutrophils # PT INR POC ABG pH 7.494 H POC ABG pCO2 34.5 L POC ABG pO2 139 H VBG pH 7.499 H Sodium Chloride BUN Glucose AST ALT Alkaline Phosphatase NT-Pro-B Natriuret Pep 6776 H Albumin Urine WBC (Auto) Crossmatch 11/01/18 11/03/18 11/03/18 15:57 03:41 03:41 WBC 12.8 H RBC 2.55 L Hgb 6.9 L Hct 22.2 L MCH 27 L MCHC 31 L RDW 17.9 H Plt Count 519 H Lymph % (Auto) [place] % (Auto) Lymph # [place] # Seg Neutrophils % Seg Neutrophils # PT INR POC ABG pH POC ABG pCO2 POC ABG pO2 VBG pH Sodium 147 H Chloride 110.3 H BUN 55 H Glucose AST ALT Alkaline Phosphatase NT-Pro-B Natriuret Pep Albumin Urine WBC (Auto) > 182.0 H Crossmatch 11/03/18 12:51 WBC RBC Hgb Hct MCH MCHC RDW Plt Count Lymph % (Auto) [place] % (Auto) Lymph # [place] # Seg Neutrophils % Seg Neutrophils # PT INR POC ABG pH POC ABG pCO2 POC ABG pO2 VBG pH Sodium Chloride BUN Glucose AST ALT Alkaline Phosphatase NT-Pro-B Natriuret Pep Albumin Urine WBC (Auto) Crossmatch See Detail Chest x-ray: report reviewed (Reported atelectasis left lung base.), image reviewed
[2018-11-03] MEDS ORDERED: SIMPLE SYRUP FEEDTUBE PRN ×2 (17:12)
--- NOTE | 2018-11-03 19:31 | Consultation ---
History of Present Illness - Reason for Consult Consult date: 11/03/18 recurrent bacteremia Requesting physician: TRACEY ROTH - History of Present Illness 67 y/o male with history of HTN, CVA, Obstructive Uropathy, Contracture, Multiple Decubitus Ulcers, [place], DM, OA, Seizure Disorder, COPD, Dementia, Debility, BPH, well known to ID due to multiple admissions secondary to ducubitus ulcers infections and recurrent bacteremia, [facility], last time admitted on 10/02/2018 due to decreased responsiveness and hypotension SBP in 60's found with MRSA bacteremia likley from decubitus ulcers mainly active large left trochanteric with bone exposure and sacral with bone exposure. Patient's infection was deemed incurable and hospice was recommended. Of note, in July he had septic shock due to polymicrobial bacteremia ESBL and carbapenem resistant E coli, MDR Proteus, Strep and E faecalis on 07/29/2018 probably from multiple infected decubitus ulcers and less likely UTI. Repeat blood cultures 07/31/2018 showed same MDR E coli 1 of 4 bottles then 08/06/2018 blood cultures showed no growth. Patient was treated with Vabomere for 14 days. Patient was discharged back to [facility] on IV vancomycin 1 gm every 48 hours for total 6 weeks ending 11/12/2018 via neck tunneled cath. Patient was readmitted on due to AMS, worsening SOB. Patient is lethargic and unable to provide history. At the [facility] he was found to have respiratory distress upon evaluation the morning of a dmission,pulse oximetry in the 80's. In the ED, temp 101, HR 120, R69, BP 122/730. WBC 15.3. Hg 7.9. [id number]. Creat 1. UA with 182 wbc, mod LE. Blood cultures 11/01/2018 GPC in clusters 2 of 4 bot tles. Urine culture 11/01/2018 10-100K multiple sp. CXR negative. Patient was placed BIPAP. Review of Systems: patient is lethargic Past History Past Medical History: acute [place], arthritis, COPD, diabetes, seizures, other (Dem entia) Past Surgical History: Other (G Tube, Debridement of Sacral wound) Social history: . denies: smoking, alcohol abuse, prescription drug abuse Family history: diabetes, hypertension Medications and Allergies Allergies Allergy/AdvReac Type Severity Reaction Status Date / Time lisinopril Allergy Unknown Verified 10/01/18 15:17 tramadol Allergy Unknown Verified 07/29/18 18:39 Home Medications Medication Instructions Recorded Confirmed Last Taken Type Multivit-Min/Iron Fum/Folic AC 1 each PO DAILY 03/24/18 11/01/18 Unknown History [Vzmqz-Fqcxaqx-Tvxfwdii Tablet] Acetaminophen 650 mg NGTUBE Q6H PRN 07/30/18 11/01/18 Unknown History Ipratropium/Albuterol Sulfate 1 ampul IH BID 07/30/18 11/01/18 Unknown History [DUONEB *Not for PRN Use*] Tamsulosin [Flomax] 0.4 mg PO QDAY 07/30/18 11/01/18 Unknown History Vit C/Ascorbate Calcium,Sodium 500 mg NGTUBE BID 07/30/18 11/01/18 Unknown History [Vitamin C 500 mg/15 ml Liquid] Zinc Sulfate 220 mg NGTUBE QDAY 07/30/18 11/01/18 Unknown History levETIRAcetam [Keppra INJ] 500 mg PO Q12H 07/30/18 11/01/18 Unknown History Phosphorus #1 [K-Phos Neutral] 250 mg PO QID #30 tablet 08/23/18 11/01/18 Unknown Rx hydroCHLOROthiazide [HCTZ] 12.5 mg PO QDAY #30 tablet 08/23/18 11/01/18 Unknown Rx AtorvaSTATin [Lipitor] 40 mg NGTUBE QHS #30 tablet 10/21/18 11/01/18 Unknown Rx cloNIDine-TTS PATCH [Catapres-Tts 0.2 mg TD Tu #7 patch 10/21/18 11/01/18 Unknown Rx 0.2mg Patch] Insulin Aspart [Novolog] 0 unit SQ AC 11/01/18 11/01/18 Unknown History Vancomycin/Water For Inj (Peg) 1 gm IV Q48H 11/01/18 11/01/18 Unknown History [Vancomycin 1 Gram/200 ml Bag] Active Meds: Active Medications Acetaminophen (Tylenol) 650 mg FEEDTUBE Q4H PRN PRN Reason: Pain, Moderate (4-6) Last Admin: 11/03/18 06:12 Dose: 650 mg Documented by: Albuterol (Proventil) 2.5 mg IH Q3HRT PRN PRN Reason: Shortness Of Breath Albuterol/Ipratropium (Duoneb *Not For Prn Use*) 1 ampul IH BID [facility] Last Admin: 11/03/18 10:25 Dose: 1 ampul Documented by: Lipase/Protease/Amylase (Nickie Moore 10,500 Unit) 1 each FEEDTUBE PRN PRN PRN Reason: For Clogged Feeding Tube Ascorbic Acid (Vitamin C) 500 mg FEEDTUBE BID [facility] Last Admin: 11/03/18 10:49 Dose: 500 mg Documented by: Atorvastatin Calcium (Lipitor) 40 mg FEEDTUBE QHS [facility] Last Admin: 11/02/18 21:35 Dose: 40 mg Documented by: Clonidine HCl (Catapres-Tts Patch) 0.2 mg TD Tu [facility] Enoxaparin Sodium (Lovenox) 40 mg SUB-Q QDAY@1000 [facility] Last Admin: 11/03/18 10:48 Dose: 40 mg Documented by: Vancomycin HCl (Vancomycin/Ns 1 Gm/250 Ml) 1 gm in 250 mls @ 167.007 mls/hr IV Q48H [facility] Last Admin: 11/03/18 13:45 Dose: 167.007 mls/hr Documented by: Cefepime HCl (Maxipime/Ns 1 Gm/100 Ml) 1 gm in 100 mls @ 200 mls/hr IV Q8HR [facility]; Protocol Last Admin: 11/03/18 13:38 Dose: 200 mls/hr Documented by: Levetiracetam (Keppra) 500 mg FEEDTUBE BID [facility] Last Admin: 11/03/18 10:48 Dose: 500 mg Documented by: Morphine Sulfate (Morphine) 2 mg IV Q4H PRN PRN Reason: Pain, Moderate (4-6) Last Admin: 11/01/18 19:35 Dose: 2 mg Documented by: Multivitamins (Centrum Liq) 5 ml FEEDTUBE QDAY [facility] Last Admin: 11/03/18 10:48 Dose: 5 ml Documented by: Simple Syrup (Simple Syrup) 15 ml FEEDTUBE PRN PRN PRN Reason: Hypoglycemia Simple Syrup (Simple Syrup) 30 ml FEEDTUBE PRN PRN PRN Reason: Hypoglycemia Sodium Bicarbonate (Sodium Bicarbonate) 325 mg FEEDTUBE PRN PRN PRN Reason: For Clogged Feeding Tube Sodium Chloride (Sodium Chloride Flush Syringe 10 Ml) 10 ml IV BID [facility] Last Admin: 11/03/18 10:48 Dose: 10 ml Documented by: Sodium Chloride (Sodium Chloride Flush Syringe 10 Ml) 10 ml IV PRN PRN PRN Reason: LINE FLUSH Zinc Sulfate (Zinc Sulfate) 220 mg PO DAILY [facility] Last Admin: 11/03/18 10:49 Dose: 220 mg Documented by: Physical Examination - Physical Exam Narrative exam: General appearance: somnoent in mild resp distress Eyes: anicteric sclerae, moist conjunctivae; no lid-lag; PERRLA HENT: Atraumatic; oropharynx limited Neck: Trachea midline; supple, no thyromegaly or lymphadenopathy Lungs: CTA CV: RRR no murmur Abdomen: Soft, non-tender Extremities: marked legs contractions, multiple decubitus ulcers covered with dressings Skin: multiple skin tears Psych: no agitated. Neuro: somnolent - Constitutional Vitals: Vital Signs Temp Pulse Resp BP Pulse Ox 98.3 F 81 27 H 130/70 96 11/03/18 16:00 11/03/18 19:00 11/03/18 19:00 11/03/18 19:00 11/03/18 19:00 Temperature -Last 24 Hours Temperature 98.3 F Temperature 98.3 F Temperature 98.9 F Temperature 98.4 F Temperature 98.0 F Temperature 98 F Temperature 99.2 F Temperature 99.2 F Temperature 100.0 F Temperature 100 F Temperature 98.5 F Results - Labs CBC & Chem 7: 11/03/18 03:41 11/03/18 03:41 Labs: Abnormal lab results 11/03/18 11/03/18 11/03/18 Range/Units 03:41 03:41 12:51 WBC 12.8 H (4.5-11.0) K/mm3 RBC 2.55 L (3.65-5.03) M/mm3 Hgb 6.9 L (11.8-15.2) gm/dl Hct 22.2 L (35.5-45.6) % MCH 27 L (28-32) pg MCHC 31 L (32-34) % RDW 17.9 H (13.2-15.2) % Plt Count 519 H (140-440) K/mm3 Sodium 147 H (137-145) mmol/L Chloride 110.3 H (98-107) mmol/L BUN 55 H (9-20) mg/dL Crossmatch See Detail Assessment and Plan Cultures: Blood culture 10/01/2018 MRSA 2 of 4. Blood culture 10/03/2018 MRSA Blood culture 10/08/2018 no growth Blood culture 10/11/2018 no growth Blood culture 10/21/2018 no growth Blood culture 11/01/2018GPC in clusters 2 of 4 bottle Assessment: 67 y/o male with history of HTN, CVA, Obstructive Uropathy, Contracture, Multiple Decubitus Ulcers, [place], DM, OA, Seizure Disorder, COPD, Dementia, Debility, BPH, well known to ID due to multiple admissions secondary to ducubitus ulcers infections and recurrent bacteremia, last time admitted on 10/02/2018 found with MRSA bacteremia dengley from decubitus ulcers mainly active large left trochanteric with bone exposure and sacral with bone exposure. Patient's infection was deemed incurable and hospice was recommended. Patient was discharged back to [facility] on IV vancomycin 1 gm every 48 hours for total 6 weeks ending 11/12/2018 via neck tunneled cath. Patient was readmitted on due to AMS, worsening SOB. Patient is lethargic and unable to provide history. At the [facility] he was found to have respiratory distress upon evaluation the morning of admission,pulse oximetry in the 80's: 1) Severe Sepsis: present on admission with fever, leukocytosis: Etiology most likely Recurret Staph bacteremia +/- CAUTI. 2) GPC bacteremia with recent MRSA bacteremia: likely Recurrent MRSA bacteremia. Source likely multiple decubitus ulcers. Patient is failing vancomycin. He has a tunneled neck cath. Blood culture 11/01/2018GPC in clusters 2 of 4 bottles. Recent TTE negative for vegetations. 3) Recent septic shock due to polymicrobial bacteremia ESBL and carbapenem resistant E coli, MDR Proteus, Strep and E faecalis on 07/29/2018 probably from multiple infected decubitus ulcers and less likely UTI. Repeat blood cultures 07/31/2018 showed same MDR E coli 1 of 4 bottles then 08/06/2018 blood cultures showed no growth. Patient was treated with Vabomere for 14 days. 4) Multiple infected decubitus ulcers: with active large left trochanteric with bone exposure and sacral with bone exposure. His prognosis has been poor and hospice has been recommended several times in the past but family has declined. declined. His wounds are not curable considering his contractures, bed bound status and poor nutritional status. There was also suspicion of septic arthritis of left hip from decubitus ulcer. 5) Recurrent CAUTI 6) Acute encephalopathy: multifactorial. 7) Acute resp failure: was on BIPAP now NC O2 Recommendations: - family meeting to discuss incurable infection and hospice tomorrow at 11pm - stop vancomycin - start daptomycin IV for now - repeat blood culture and TTE - exchange bright - f/u blood cultures - always contact isolation Poor prognosis Will follow. Penny Bernardo MD Infectious Diseases Slitter [employer]orer Cut Off Operator [facility] ([facility] M [phone]
[2018-11-03] MEDS: NACL 0.9% IV SCH (22:28)
[2018-11-03] MEDS: DAPTOMYCIN IV SCH (22:28)
[2018-11-04 05:31] LABS: Hematocrit 25.3 % (35.5-45.6); Hemoglobin 8.3 gm/dl (11.8-15.2); Mean Corpuscular HGB Conc 33 % (32-34); Mean Corpuscular Volume 86 fl (84-94); Platelet Count 514 K/mm3 (140-440); Red Blood Count 2.94 M/mm3 (3.65-5.03); Red Cell Distribution Width 17.3 % (13.2-15.2)
[2018-11-04 05:58] LABS: BUN/Creatinine Ratio 47; Blood Urea Nitrogen 52 mg/dL (9-20); Calcium 8.6 mg/dL (8.4-10.2); Hemolysis Index 0
[2018-11-04] MEDS: DUONEB *Not for PRN Use IH SCH ×4 (06:33→23:55)
[2018-11-04] MEDS: MORPHINE IV PRN ×4 (08:29→17:59)
[2018-11-04] MEDS: KEPPRA FEEDTUBE SCH ×2 (09:59→21:58)
[2018-11-04] MEDS: Centrum Liq FEEDTUBE SCH (09:59)
[2018-11-04] MEDS: VITAMIN C FEEDTUBE SCH ×2 (09:59→21:59)
[2018-11-04] MEDS: LOVENOX SUB-Q SCH (09:59)
--- NOTE | 2018-11-04 12:37 | Consultation ---
History of Present Illness - Reason for Consult Consult date: 11/04/18 - History of Present Illness 67 YO Male Detention Facility Resident as [facility] with HTN, CVA, Obstructive Uropathy, Diastolic CHF, Contracture, Sacral Decubitus Ulcers, AR, DM, OA, Seizure Disorder, COPD, Dementia, BPH presents to ED for evaluation. Pt is stuporous and unable to provide history. Pt history per chart review & daughter. The patient was found to have respiratory distress upon evaluation this morning. Pt found to have pulse oximetry in the 80's. EMS notified and patient subsequently transported to [facility] for further care and evaluation. Pt seen and evaluated in ED and found to have UTI, Sepsis, Encephalopathy as well as Acute Hypoxemic Respiratory Failure. Pt admitted to [facility] and initiated on Sepsis protocol. No further history obtainable. Prior admission on 10/01/18 reviewed. Daughter at bedside bright draining cy urine (not in good position) - removed circ testes normal wire bright (16F) A/P BPH continue bright as needed Past History Past Medical History: acute AR, arthritis, COPD, diabetes, seizures, other (Dementia) Past Surgical History: Other (G Tube, Debridement of Sacral wound) Social history: . denies: smoking, alcohol abuse, prescription drug abuse Family history: diabetes, hypertension Medications and Allergies Allergies Allergy/AdvReac Type Severity Reaction Status Date / Time lisinopril Allergy Unknown Verified 10/01/18 15:17 tramadol Allergy Unknown Verified 07/29/18 18:39 Home Medications Medication Instructions Recorded Confirmed Last Taken Type Multivit-Min/Iron Fum/Folic AC 1 each PO DAILY 03/24/18 11/01/18 Unknown History [Ewlhu-Ugbzxhg-Qmzahvfj Tablet] Acetaminophen 650 mg NGTUBE Q6H PRN 07/30/18 11/01/18 Unknown History Ipratropium/Albuterol Sulfate 1 ampul IH BID 07/30/18 11/01/18 Unknown History [DUONEB *Not for PRN Use*] Tamsulosin [Flomax] 0.4 mg PO QDAY 07/30/18 11/01/18 Unknown History Vit C/Ascorbate Calcium,Sodium 500 mg NGTUBE BID 07/30/18 11/01/18 Unknown History [Vitamin C 500 mg/15 ml Liquid] Zinc Sulfate 220 mg NGTUBE QDAY 07/30/18 11/01/18 Unknown History levETIRAcetam [Keppra INJ] 500 mg PO Q12H 07/30/18 11/01/18 Unknown History Phosphorus #1 [K-Phos Neutral] 250 mg PO QID #30 tablet 08/23/18 11/01/18 Unknown Rx hydroCHLOROthiazide [HCTZ] 12.5 mg PO QDAY #30 tablet 08/23/18 11/01/18 Unknown Rx AtorvaSTATin [Lipitor] 40 mg NGTUBE QHS #30 tablet 10/21/18 11/01/18 Unknown Rx cloNIDine-TTS PATCH [Catapres-Tts 0.2 mg TD Tu #7 patch 10/21/18 11/01/18 Unknown Rx 0.2mg Patch] Insulin Aspart [Novolog] 0 unit SQ AC 11/01/18 11/01/18 Unknown History Vancomycin/Water For Inj (Peg) 1 gm IV Q48H 11/01/18 11/01/18 Unknown History [Vancomycin 1 Gram/200 ml Bag] Active Meds: Active Medications Acetaminophen (Tylenol) 650 mg FEEDTUBE Q4H PRN PRN Reason: Pain, Moderate (4-6) Last Admin: 11/03/18 06:12 Dose: 650 mg Documented by: Albuterol (Proventil) 2.5 mg IH Q3HRT PRN PRN Reason: Shortness Of Breath Albuterol/Ipratropium (Duoneb *Not For Prn Use*) 1 ampul IH BID [facility] Last Admin: 11/04/18 09:13 Dose: 1 ampul Documented by: Lipase/Protease/Amylase (Nickie Moore 10,500 Unit) 1 each FEEDTUBE PRN PRN PRN Reason: For Clogged Feeding Tube Ascorbic Acid (Vitamin C) 500 mg FEEDTUBE BID [facility] Last Admin: 11/04/18 09:59 Dose: 500 mg Documented by: Atorvastatin Calcium (Lipitor) 40 mg FEEDTUBE QHS [facility] Last Admin: 11/03/18 22:27 Dose: 40 mg Documented by: Clonidine HCl (Catapres-Tts Patch) 0.2 mg TD Tu [facility] Enoxaparin Sodium (Lovenox) 40 mg SUB-Q QDAY@1000 [facility] Last Admin: 11/04/18 09:59 Dose: 40 mg Documented by: Cefepime HCl (Maxipime/Ns 1 Gm/100 Ml) 1 gm in 100 mls @ 200 mls/hr IV Q8HR [facility]; Protocol Stop: 11/06/18 23:59 Last Admin: 11/03/18 22:26 Dose: 200 mls/hr Documented by: Daptomycin 400 mg/ Sodium (Chloride) 100 mls @ 200 mls/hr IV Q24H [facility]; Protocol Last Admin: 11/03/18 22:28 Dose: 200 mls/hr Documented by: Levetiracetam (Keppra) 500 mg FEEDTUBE BID [facility] Last Admin: 11/04/18 09:59 Dose: 500 mg Documented by: Morphine Sulfate (Morphine) 2 mg IV Q4H PRN PRN Reason: Pain, Moderate (4-6) Last Admin: 11/04/18 10:32 Dose: 2 mg Documented by: Multivitamins (Centrum Liq) 5 ml FEEDTUBE QDAY [facility] Last Admin: 11/04/18 09:59 Dose: 5 ml Documented by: Simple Syrup (Simple Syrup) 15 ml FEEDTUBE PRN PRN PRN Reason: Hypoglycemia Simple Syrup (Simple Syrup) 30 ml FEEDTUBE PRN PRN PRN Reason: Hypoglycemia Sodium Bicarbonate (Sodium Bicarbonate) 325 mg FEEDTUBE PRN PRN PRN Reason: For Clogged Feeding Tube Sodium Chloride (Sodium Chloride Flush Syringe 10 Ml) 10 ml IV BID [facility] Last Admin: 11/03/18 22:28 Dose: 10 ml Documented by: Sodium Chloride (Sodium Chloride Flush Syringe 10 Ml) 10 ml IV PRN PRN PRN Reason: LINE FLUSH Zinc Sulfate (Zinc Sulfate) 220 mg PO DAILY [facility] Last Admin: 11/03/18 10:49 Dose: 220 mg Documented by: Exam - Constitutional Vitals: Temp Pulse Resp BP Pulse Ox 97.7 F 93 H 29 H 134/76 99 11/04/18 08:00 11/04/18 12:00 11/04/18 12:00 11/04/18 12:00 11/04/18 12:00 Results - Labs CBC & Chem 7: 11/04/18 05:12 11/04/18 05:12 Labs: Abnormal lab results 11/03/18 11/04/18 11/04/18 Range/Units 12:51 05:12 05:12 WBC 11.5 H (4.5-11.0) K/mm3 RBC 2.94 L (3.65-5.03) M/mm3 Hgb 8.3 L (11.8-15.2) gm/dl Hct 25.3 L (35.5-45.6) % RDW 17.3 H (13.2-15.2) % Plt Count 514 H (140-440) K/mm3 Sodium 147 H (137-145) mmol/L Chloride 112.4 H (98-107) mmol/L BUN 52 H (9-20) mg/dL Crossmatch See Detail
[2018-11-04] MEDS: MAXIPIME/NS 1 GM/100 ML 1 GM/100 ML BAG IV SCH ×2 (14:00→21:53)
[2018-11-04] MEDS: SODIUM CHLORIDE FLUSH SYRINGE 10 ML IV SCH ×2 (15:38→21:54)
[2018-11-04] MEDS: ZINC SULFATE PO SCH (15:38)
[2018-11-04] MEDS: TYLENOL FEEDTUBE PRN (15:49)
[2018-11-04] MEDS ORDERED: PANCREAZE DR 10,500 UNIT FEEDTUBE PRN (16:08)
[2018-11-04] MEDS ORDERED: SODIUM BICARBONATE FEEDTUBE PRN (16:08)
[2018-11-04] MEDS ORDERED: SIMPLE SYRUP FEEDTUBE PRN ×2 (16:08)
--- NOTE | 2018-11-04 16:18 | Progress Note ---
Assessment and Plan Assessment and plan: 67 [facility] Resident as [facility] with HTN, CVA, Obstructive Uropathy, Diastolic CHF, Contracture, Sacral Decubitus Ulcers, [place], DM, OA, Seizure Disorder, COPD, Dementia, BPH presents to ED for evaluation. Pt is stuporous and unable to provide history. Pt history taken from ED Staff, EMS, and SNF Staff. As per staff, the patient was found to have respiratory distress upon evaluation this morning. Pt found to have pulse oximetry in the 80's. EMS notified and patient subsequently transported to [facility] for further care and evaluation. Pt seen and evaluated in ED and found to have UTI, Sepsis, Encephalopathy as well as Acute Hypoxemic Respiratory Failure. Pt initiated on NIPPV in ED with improvement in symptoms. Pt admitted to IMCU and initiated on Sepsis protocol. Prior admission on 10/01/18 reviewed. * Extensive discussion with family about patients poor prognosis * surgery consulted for possible debridment * ID following, Pulmonary status improved * Continue isolation care * Chaudhary placed by Urology please do not remove * Sepsis Continue IMCU care, place on isolation, ID consult noted, IV antibiotic therapy, blood cultures with gram positive Multiple hx of MRSA, Multi organ Monitor uop q shift. Respiratory failure Supplemental oxygen, nebulizer therapy,pulse oximetry, Chest X ray, NIPPV UNABLE TO GET v/q scan Awaiting Pulmonary consult Anemia of chronic disease Transfuse one unit PRBC Seizure Continue current therapy, seizure precautions. UTI (urinary tract infection) IV antibiotic therapy, CBC, CMP, Urinalysis. BPH Continue Chaudhary catherter Dementia IVF resuscitation therapy, supportive care, treat sepsis. sacral pressure ulcer -infected. POA WOUND CARE CONSULT. CONTINUE ABX. DVT prophylaxis Current Visit: Yes Status: Acute Plan to address problem: SCD to BLE while in bed, Prophylactic lovenox POOR PROGNOSIS History Interval history: Patient seen and examined, awake, oriented, in mild distress Hospitalist Physical - Physical exam Narrative exam: General appearance: Present: CHRONICALLY ILL, MILD DISTRESS - EENT Eyes: Present: miosis ENT: clear oral mucosa, no hearing intact - Neck Neck: Present: supple, normal ROM - Respiratory Respiratory effort:labored, on BIPAP Respiratory: bilateral: diminished - Cardiovascular Heart Sounds: Present: S1 & S2. Absent: rub, click - Extremities Extremities: pulses symmetrical, No edema Extremity abnormal: other (BLE Contracture) Peripheral Pulses: within normal limits - Abdominal General gastrointestinal: Present: soft, non-tender, non-distended, normal bowel sounds Male genitourinary: Present: normal - Integumentary Integumentary: Present: stage 4 pressure ulcer-poa - Musculoskeletal Musculoskeletal: generalized weakness - Psychiatric Psychiatric: no appropriate mood/affect, no intact judgment & insight, no memory intact - Neurologic Neurologic: CNII-XII intact, focal deficits, no moves all extremities, no gait normal - Constitutional Vitals: Temp Pulse Resp BP Pulse Ox 99.1 F 92 H 40 H 130/72 99 11/04/18 16:00 11/04/18 16:00 11/04/18 16:00 11/04/18 16:00 11/04/18 16:00 General appearance: Present: mild distress Results - Labs CBC & Chem 7: 11/04/18 05:12 11/04/18 05:12 Labs: Laboratory Last Values WBC 11.5 K/mm3 (4.5-11.0) H 11/04/18 05:12 RBC 2.94 M/mm3 (3.65-5.03) L 11/04/18 05:12 Hgb 8.3 gm/dl (11.8-15.2) L 11/04/18 05:12 Hct 25.3 % (35.5-45.6) L 11/04/18 05:12 MCV 86 fl (84-94) 11/04/18 05:12 MCH 28 pg (28-32) 11/04/18 05:12 MCHC 33 % (32-34) 11/04/18 05:12 RDW 17.3 % (13.2-15.2) H 11/04/18 05:12 Plt Count 514 K/mm3 (140-440) H 11/04/18 05:12 Lymph % (Auto) 6.5 % (13.4-35.0) L 11/01/18 14:50 [place] % (Auto) 8.5 % (0.0-7.3) H 11/01/18 14:50 Eos % (Auto) 1.0 % (0.0-4.3) 11/01/18 14:50 Baso % (Auto) 0.6 % (0.0-1.8) 11/01/18 14:50 Lymph # 1.0 K/mm3 (1.2-5.4) L 11/01/18 14:50 [place] # 1.3 K/mm3 (0.0-0.8) H 11/01/18 14:50 Eos # 0.1 K/mm3 (0.0-0.4) 11/01/18 14:50 Baso # 0.1 K/mm3 (0.0-0.1) 11/01/18 14:50 Seg Neutrophils % 83.4 % (40.0-70.0) H 11/01/18 14:50 Seg Neutrophils # 12.7 K/mm3 (1.8-7.7) H 11/01/18 14:50 PT 16.3 Sec. (12.2-14.9) H 11/01/18 14:50 INR 1.35 (0.87-1.13) H 11/01/18 14:50 POC ABG pH 7.494 (7.35-7.45) H 11/01/18 15:27 POC ABG pCO2 34.5 (35-45) L 11/01/18 15:27 POC ABG pO2 139 (80-105) H 11/01/18 15:27 POC ABG HCO3 26.5 (22-26 mml/L) 11/01/18 15:27 POC ABG Total CO2 28 (23-27mmol/L) 11/01/18 15:27 POC ABG O2 Sat 99 11/01/18 15:27 POC ABG Base Excess 3 ((-2) - (+3)mmol/L) 11/01/18 15:27 VBG pH 7.499 (7.320-7.420) H 11/01/18 14:50 50 % 11/01/18 15:27 Sodium 147 mmol/L (137-145) H 11/04/18 05:12 Potassium 3.7 mmol/L (3.6-5.0) 11/04/18 05:12 Chloride 112.4 mmol/L (98-107) H 11/04/18 05:12 Carbon Dioxide 22 mmol/L (22-30) 11/04/18 05:12 16 mmol/L 11/04/18 05:12 BUN 52 mg/dL (9-20) H 11/04/18 05:12 1.1 mg/dL (0.8-1.5) 11/04/18 05:12 Estimated GFR > 60 ml/min 11/04/18 05:12 47 % 11/04/18 05:12 Glucose 95 mg/dL (75-100) 11/04/18 05:12 Lactic Acid 1.80 mmol/L (0.7-2.0) 11/01/18 14:50 Calcium 8.6 mg/dL (8.4-10.2) 11/04/18 05:12 0.30 mg/dL (0.1-1.2) 11/01/18 14:50 AST 90 units/L (5-40) H 11/01/18 14:50 ALT 77 units/L (7-56) H 11/01/18 14:50 350 units/L (35-129) H 11/01/18 14:50 NT-Pro-B Natriuret Pep 6776 pg/mL (0-900) H 11/01/18 14:50 7.9 g/dL (6.3-8.2) 11/01/18 14:50 1.6 g/dL (3.9-5) L 11/01/18 14:50 0.3 % 11/01/18 14:50 Yellow (Yellow) 11/01/18 15:57 Turbid (Clear) 11/01/18 15:57 6.0 (5.0-7.0) 11/01/18 15:57 Ur Specific [place] 1.016 (1.003-1.030) 11/01/18 15:57 100 mg/dl mg/dL (Negative) 11/01/18 15:57 Neg mg/dL (Negative) 11/01/18 15:57 Neg mg/dL (Negative) 11/01/18 15:57 Neg (Negative) 11/01/18 15:57 Neg (Negative) 11/01/18 15:57 Neg (Negative) 11/01/18 15:57 < 2.0 mg/dL (<2.0) 11/01/18 15:57 Ur Leukocyte Esterase Mod (Negative) 11/01/18 15:57 > 182.0 /HPF (0.0-6.0) H 11/01/18 15:57 40.0 /HPF (0.0-6.0) 11/01/18 15:57 U Epithel Cells (Auto) 8.0 /HPF (0-13.0) 11/01/18 15:57 3+ /HPF 11/01/18 15:57 3+ /HPF 11/01/18 15:57 Random Vancomycin 13.9 ug/mL (0-40.0) 11/02/18 05:05 Blood Type O POSITIVE 11/03/18 12:51 Antibody Screen Negative 11/03/18 12:51 Crossmatch See Detail 11/03/18 12:51 Active Medications - Current Medications Current Medications: Generic Name Dose Route Start Last Admin Trade Name Freq PRN Reason Stop Dose Admin Acetaminophen 650 mg 11/01/18 17:38 11/04/18 15:49 Tylenol FEEDTUBE 650 mg Q4H PRN Administration Pain, Moderate (4-6) Albuterol 2.5 mg 11/01/18 17:15 Proventil IH Q3HRT PRN Shortness Of Breath Albuterol/Ipratropium 1 ampul 11/01/18 22:00 11/04/18 09:13 Duoneb *Not For Prn Use* IH 1 ampul BID NORA Administration Lipase/Protease/Amylase 1 each 11/03/18 17:12 Nickie Moore 10,500 Unit FEEDTUBE PRN PRN For Clogged Feeding Tube Lipase/Protease/Amylase 1 each 11/04/18 16:08 Nickie Moore 10,500 Unit FEEDTUBE PRN PRN For Clogged Feeding Tube Ascorbic Acid 500 mg 11/01/18 22:00 11/04/18 09:59 Vitamin C FEEDTUBE 500 mg BID NORA Administration Atorvastatin Calcium 40 mg 11/01/18 22:00 11/03/18 22:27 Lipitor FEEDTUBE 40 mg QHS NORA Administration Clonidine HCl 0.2 mg 11/05/18 17:18 Catapres-Tts Patch TD Tu NORA Enoxaparin Sodium 40 mg 11/02/18 10:00 11/04/18 09:59 Lovenox SUB-Q 40 mg QDAY@1000 NORA Administration Cefepime HCl 1 gm in 100 mls @ 200 mls/hr 11/02/18 14:00 11/04/18 14:00 Maxipime/Ns 1 Gm/100 Ml IV 11/06/18 23:59 200 mls/hr Q8HR NORA Administration Protocol Daptomycin 400 mg/ Sodium 100 mls @ 200 mls/hr 11/03/18 21:00 11/03/18 22:28 Chloride IV 200 mls/hr Q24H NORA Administration Protocol Levetiracetam 500 mg 11/01/18 22:00 11/04/18 09:59 Keppra FEEDTUBE 500 mg BID NORA Administration Morphine Sulfate 2 mg 11/01/18 17:15 11/04/18 15:54 Morphine IV 2 mg Q4H PRN Administration Pain, Moderate (4-6) Multivitamins 5 ml 11/02/18 10:00 11/04/18 09:59 Centrum Liq FEEDTUBE 5 ml QDAY NORA Administration Simple Syrup 15 ml 11/03/18 17:12 Simple Syrup FEEDTUBE PRN PRN Hypoglycemia Simple Syrup 30 ml 11/03/18 17:12 Simple Syrup FEEDTUBE PRN PRN Hypoglycemia Simple Syrup 15 ml 11/04/18 16:08 Simple Syrup FEEDTUBE PRN PRN Hypoglycemia Simple Syrup 30 ml 11/04/18 16:08 Simple Syrup FEEDTUBE PRN PRN Hypoglycemia Sodium Bicarbonate 325 mg 11/03/18 17:12 Sodium Bicarbonate FEEDTUBE PRN PRN For Clogged Feeding Tube Sodium Bicarbonate 325 mg 11/04/18 16:08 Sodium Bicarbonate FEEDTUBE PRN PRN For Clogged Feeding Tube Sodium Chloride 10 ml 11/01/18 22:00 11/04/18 15:38 Sodium Chloride Flush Syringe 10 Ml IV Not Given BID NORA Sodium Chloride 10 ml 11/01/18 17:15 Sodium Chloride Flush Syringe 10 Ml IV PRN PRN LINE FLUSH Zinc Sulfate 220 mg 11/02/18 10:00 11/04/18 15:38 Zinc Sulfate PO 220 mg DAILY NORA Administration Nutrition/Malnutrition Assess - Dietary Evaluation Nutrition/Malnutrition Findings: Nutrition Notes Start: 11/04/18 16:00 Freq: Status: Active Protocol: Document 11/04/18 16:00 RM (Rec: 11/04/18 16:08 RM [id number]) Nutrition Notes Need for Assessment generated from: MD Order Initial or Follow up Assessment Current Diagnosis COPD,Diabetes,Hypertension, Stroke Other Pertinent Diagnosis Sacral PUs, UTI, Dementia Current Diet Nepro at 20 ml/hr Labs/Tests Reviewed Pertinent Medications Reviewed Height 5 ft 8 in Weight 63 kg [place] Body Weight (kg) 70.00 BMI 21.1 Subjective/Other Information Consulted for TF recommendation. Screened for skin risk. Miky 10 points. Burn Absent Trauma Absent #1 Nutrition Diagnosis Inadequate oral intake Etiology dementia, CVA As Evidenced by Signs and Symptoms TF consult Is patient on ventilator? No Is Patient Ambulatory and/or Out of Bed No REE-([facility]-confined to bed) 3017.667 Calculation Used for Recommendations [facility] Additional Notes Protein Needs: 76-95g (1.2-1. 5g/kg) Fluid Needs: 1 ml/kcal Nutrition Intervention Nutrition Support: Glucerna at 60 ml/hr. Water flush of 100 mls q 4 hrs . Kcal 1,728 Protein (gm) 86 Fluid (mL) 1,159 Goal #1 TF tolerance Goal #2 Meet at least 75% of calorie and protein needs via TF Anticipated Discharge Needs: Unable to determine at this time Follow-Up By: 11/06/18 Additional Comments Follow for new TF
--- NOTE | 2018-11-04 16:22 | Progress Note ---
Assessment and Plan Cultures: Blood culture 10/01/2018 MRSA 2 of 4. Blood culture 10/03/2018 MRSA Blood culture 10/08/2018 no growth Blood culture 10/11/2018 no growth Blood culture 10/21/2018 no growth Blood culture 11/01/2018 Staph haemolyticus 2 of 4 bottles, resistent to methicillin Assessment: 67 y/o male with history of HTN, CVA, Obstructive Uropathy, Contracture, Multiple Decubitus Ulcers, [place], DM, OA, Seizure Disorder, COPD, Dementia, Debility, BPH, well known to ID due to multiple admissions secondary to d ucubitus ulcers infections and recurrent bacteremia, last time admitted on 10/02/2018 found with MRSA bacteremia likley from decubitus ulcers mainly active large left trochanteric with bone exposure and sacral with bone exposure. Patient's infection was deemed incurable and hospice was recommended. Patient was discharged back to [place] on IV vancomycin 1 gm every 48 hours for total 6 weeks ending 11/12/2018 via neck tunneled cath. Patient was readmitted on due to AMS, worsening SOB. Patient is lethargic and unable to provide history. At the [facility] he was found to have respiratory distress upon evaluation the morning of admission,pulse oximetry in the 80's: 1) Severe Sepsis: improving: Etiology most likely Recurret Staph bacteremia +/- CAUTI. 2) GPC bacteremia with recent MRSA bacteremia: due to Staph haemolyticus resistant to methicillin. Blood culture 11/01/2018 Staph haemolyticus 2 of 4 bottles. Source likely multiple decubitus ulcers or Neck IV central line. Patient is failing vancomycin. He has a tunneled neck cath. Recent TTE negative for vegetations. 3) Recent septic shock due to polymicrobial bacteremia ESBL and carbapenem resistant E coli, MDR Proteus, Strep and E faecalis on 07/29/2018 probably from multiple infected decubitus ulcers and less likely UTI. Repeat blood cultures 07/31/2018 showed same MDR E coli 1 of 4 bottles then 08/06/2018 blood cultures showed no growth. Patient was treated with Vabomere for 14 days. 4) Multiple infected decubitus ulcers: with active large left trochanteric with bone exposure and sacral with bone exposure. His prognosis has been poor and hospice has been recommended several times in the past but family has declined. declined. His wounds are not curable considering his contractures, bed bound status and poor nutritional status. There was also suspicion of septic arthritis of left hip from decubitus ulcer. 5) Recurrent UTI: patient's bright was removed home 2 weeks ago, a new bright placed here 6) Acute encephalopathy: multifactorial. 7) Acute resp failure: was on BIPAP now NC O2 Recommendations: - remove neck central line - extensive discussion with daughter done today regarding futility of antibiotic therapy as his wound infection is incurable. Patient is at risk for recurrent bacteremia, antibiotics side effects including C diff, nephrotoxicity and others. Wound is not healing due to MDR infection, severe contractures, malnutrition and multiple comorbilities. Daughter reported she spoke with patient about his wishes yesterday and he said to continue all interventions. She wants to honor hos wishes but she understand he is sick. Refused hospice. - continue daptomycin IV for now - continue cefepime for now - repeat blood culture and TTE - f/u blood cultures - always contact isolation Poor prognosis Will follow. Penny Bernardo MD Infectious Diseases [facility] ([facility]) M [phone] Subjective Date of service: 11/04/18 Principal diagnosis: bacteremia Interval history: Non verbal alert in mild resp distress on venti mask. No fever. Objective - Exam Narrative Exam: General appearance: somnolent in mild resp distress Eyes: anicteric sclerae, moist conjunctivae; no lid-lag; PERRLA HENT: Atraumatic; oropharynx limited Neck: Trachea midline; supple, no thyromegaly or lymphadenopathy Lungs: CTA CV: RRR no murmur Abdomen: Soft, non-tender Extremities: marked legs contractions, multiple decubitus ulcers covered with dressings Skin: multiple skin tears Psych: no agitated. Neuro: somnolent - Constitutional Vitals: Vital Signs Temp Pulse Resp BP Pulse Ox 97.6 F 92 H 16 130/72 99 11/04/18 12:00 11/04/18 16:00 11/04/18 16:00 11/04/18 16:00 11/04/18 16:00 Temperature -Last 24 Hours Temperature 97.6 F Temperature 97.7 F Temperature 99.8 F Temperature 99.7 F Temperature 98.5 F - Labs CBC & Chem 7: 11/04/18 05:12 11/04/18 05:12 Labs: Abnormal lab results 11/03/18 11/04/18 11/04/18 Range/Units 12:51 05:12 05:12 WBC 11.5 H (4.5-11.0) K/mm3 RBC 2.94 L (3.65-5.03) M/mm3 Hgb 8.3 L (11.8-15.2) gm/dl Hct 25.3 L (35.5-45.6) % RDW 17.3 H (13.2-15.2) % Plt Count 514 H (140-440) K/mm3 Sodium 147 H (137-145) mmol/L Chloride 112.4 H (98-107) mmol/L BUN 52 H (9-20) mg/dL Crossmatch See Detail
--- NOTE | 2018-11-04 17:50 | Progress Note ---
Assessment and Plan Patient weak and contracted. Patient resting on 5L O2. No acute respiratory distress. O2 sat 100%. Patient following simple command. - Patient Problems (1) Respiratory failure Current Visit: Yes Status: Acute Qualifiers: Chronicity: acute Respiratory failure complication: hypoxia Qualified Code(s): J96.01 - Acute respiratory failure with hypoxia Plan to address problem: Continue supplementation. Albuterol and Atrovent treatment q6h. Patient is on Cefepime and Diatomicine. Continue SQ Levonox. Recommend GI prophylexis. (2) Seizure Current Visit: Yes Status: Acute Plan to address problem: Management for neurologist. (3) Sepsis Current Visit: Yes Status: Acute Plan to address problem: Patient is on Cefipime and Daptomicine. (4) UTI (urinary tract infection) Current Visit: Yes Status: Acute Qualifiers: Encounter type: initial encounter Plan to address problem: Patient is on Cefepime and Daptomycine. (5) ARF (acute renal failure) with tubular necrosis Current Visit: No Status: Acute Plan to address problem: Management as for Nephrology. Subjective Date of service: 11/04/18 Principal diagnosis: bacteremia Interval history: Patient weak and contracted. Patient resting on 5L O2. No acute respiratory distress. O2 sat 100%. Patient following simple command. Objective Vital Signs - 12hr 11/04/18 11/04/18 11/04/18 06:00 07:00 07:59 Temperature Pulse Rate 87 88 Pulse Rate [ Bilateral Throughout] Pulse Rate [ From Monitor] Respiratory 29 H 31 H Rate Respiratory Rate [Bilateral Throughout] Blood Pressure 89/56 111/66 O2 Sat by Pulse 100 97 97 Oximetry 11/04/18 11/04/18 11/04/18 08:00 09:00 09:13 Temperature 97.7 F Pulse Rate 93 H 87 Pulse Rate [ 87 Bilateral Throughout] Pulse Rate [ 86 From Monitor] Respiratory 28 H 27 H Rate Respiratory 25 H Rate [Bilateral Throughout] Blood Pressure 128/75 110/68 O2 Sat by Pulse 100 100 Oximetry 11/04/18 11/04/18 11/04/18 10:00 11:00 12:00 Temperature 97.6 F Pulse Rate 103 H 103 H 93 H Pulse Rate [ Bilateral Throughout] Pulse Rate [ 85 From Monitor] Respiratory 39 H 26 H 29 H Rate Respiratory Rate [Bilateral Throughout] Blood Pressure 110/68 144/92 144/86 O2 Sat by Pulse 78 L 95 100 Oximetry 11/04/18 11/04/18 11/04/18 13:00 14:00 15:00 Temperature Pulse Rate 91 H 91 H 94 H Pulse Rate [ Bilateral Throughout] Pulse Rate [ From Monitor] Respiratory 30 H 21 20 Rate Respiratory Rate [Bilateral Throughout] Blood Pressure 122/78 132/83 132/79 O2 Sat by Pulse 100 100 100 Oximetry 11/04/18 16:00 Temperature 99.1 F Pulse Rate 92 H Pulse Rate [ Bilateral Throughout] Pulse Rate [ 89 From Monitor] Respiratory 16 Rate Respiratory Rate [Bilateral Throughout] Blood Pressure 130/72 O2 Sat by Pulse 99 Oximetry Constitutional: no acute distress, alert, other (Patient weak and contacted) Eyes: non-icteric ENT: oropharynx moist Neck: supple, no lymphadenopathy Effort: normal Ascultation: Bilateral: diminished breath sounds Cardiovascular: regular rate and rhythm Gastrointestinal: normoactive bowel sounds, soft, non-tender Integumentary: normal Extremities: no cyanosis, no edema, other (Patient has pressure ulcer at multiple areas, including sacral area.) Neurologic: non-focal exam, pupils equal and round Psychiatric: other (unable to assess ) CBC and BMP: 11/04/18 05:12 11/04/18 05:12 ABG, PT/INR, D-dimer: ABG POC ABG pH 7.494 (7.35-7.45) H 11/01/18 15:27 POC ABG pCO2 34.5 (35-45) L 11/01/18 15:27 POC ABG pO2 139 (80-105) H 11/01/18 15:27 POC ABG HCO3 26.5 (22-26 mml/L) 11/01/18 15:27 POC ABG Total CO2 28 (23-27mmol/L) 11/01/18 15:27 POC ABG O2 Sat 99 11/01/18 15:27 PT/INR, D-dimer PT 16.3 Sec. (12.2-14.9) H 11/01/18 14:50 INR 1.35 (0.87-1.13) H 11/01/18 14:50 Abnormal lab findings: Abnormal Labs 11/01/18 11/01/18 11/01/18 14:50 14:50 14:50 WBC 15.3 H RBC 2.76 L Hgb 7.9 L Hct 23.5 L MCH MCHC RDW 18.3 H Plt Count 567 H Lymph % (Auto) 6.5 L [place] % (Auto) 8.5 H Lymph # 1.0 L Boundary # 1.3 H Seg Neutrophils % 83.4 H Seg Neutrophils # 12.7 H PT 16.3 H INR 1.35 H POC ABG pH POC ABG pCO2 POC ABG pO2 VBG pH Sodium Chloride BUN 49 H Glucose 132 H AST 90 H ALT 77 H Alkaline Phosphatase 350 H NT-Pro-B Natriuret Pep Albumin 1.6 L Urine WBC (Auto) Crossmatch 11/01/18 11/01/18 11/01/18 14:50 14:50 15:27 WBC RBC Hgb Hct MCH MCHC RDW Plt Count Lymph % (Auto) [place] % (Auto) Lymph # Boundary # Seg Neutrophils % Seg Neutrophils # PT INR POC ABG pH 7.494 H POC ABG pCO2 34.5 L POC ABG pO2 139 H VBG pH 7.499 H Sodium Chloride BUN Glucose AST ALT Alkaline Phosphatase NT-Pro-B Natriuret Pep 6776 H Albumin Urine WBC (Auto) Crossmatch 11/01/18 11/03/18 11/03/18 15:57 03:41 03:41 WBC 12.8 H RBC 2.55 L Hgb 6.9 L Hct 22.2 L MCH 27 L MCHC 31 L RDW 17.9 H Plt Count 519 H Lymph % (Auto) [place] % (Auto) Lymph # Boundary # Seg Neutrophils % Seg Neutrophils # PT INR POC ABG pH POC ABG pCO2 POC ABG pO2 VBG pH Sodium 147 H Chloride 110.3 H BUN 55 H Glucose AST ALT Alkaline Phosphatase NT-Pro-B Natriuret Pep Albumin Urine WBC (Auto) > 182.0 H Crossmatch 11/03/18 11/04/18 11/04/18 12:51 05:12 05:12 WBC 11.5 H RBC 2.94 L Hgb 8.3 L Hct 25.3 L MCH MCHC RDW 17.3 H Plt Count 514 H Lymph % (Auto) [place] % (Auto) Lymph # Boundary # Seg Neutrophils % Seg Neutrophils # PT INR POC ABG pH POC ABG pCO2 POC ABG pO2 VBG pH Sodium 147 H Chloride 112.4 H BUN 52 H Glucose AST ALT Alkaline Phosphatase NT-Pro-B Natriuret Pep Albumin Urine WBC (Auto) Crossmatch See Detail
[2018-11-04] MEDS: DAPTOMYCIN IV SCH (23:08)
[2018-11-04] MEDS: NACL 0.9% IV SCH (23:08)
[2018-11-05 05:28] LABS: Hematocrit 26.6 % (35.5-45.6); Hemoglobin 8.7 gm/dl (11.8-15.2); Mean Corpuscular HGB Conc 33 % (32-34); Mean Corpuscular Volume 88 fl (84-94); Platelet Count 502 K/mm3 (140-440); Red Blood Count 3.03 M/mm3 (3.65-5.03); Red Cell Distribution Width 17.1 % (13.2-15.2)
[2018-11-05 05:48] LABS: BUN/Creatinine Ratio 50; Blood Urea Nitrogen 50 mg/dL (9-20); Calcium 9.1 mg/dL (8.4-10.2); Hemolysis Index 2
[2018-11-05] MEDS: DUONEB *Not for PRN Use IH SCH ×3 (09:49→21:21)
[2018-11-05] MEDS: VITAMIN C FEEDTUBE SCH ×2 (10:45→21:57)
[2018-11-05] MEDS: SODIUM CHLORIDE FLUSH SYRINGE 10 ML IV SCH ×2 (10:45→21:58)
[2018-11-05] MEDS: LOVENOX SUB-Q SCH (10:45)
[2018-11-05] MEDS: ZINC SULFATE PO SCH (10:46)
[2018-11-05] MEDS: Centrum Liq FEEDTUBE SCH (10:52)
[2018-11-05] MEDS: KEPPRA FEEDTUBE SCH ×2 (10:53→21:57)
--- NOTE | 2018-11-05 11:35 | Progress Note ---
Assessment and Plan Cultures: Blood culture 10/01/2018 MRSA 2 of 4. Blood culture 10/03/2018 MRSA Blood culture 10/08/2018 no growth Blood culture 10/11/2018 no growth Blood culture 10/21/2018 no growth Blood culture 11/01/2018 Staph haemolyticus 2 of 4 bottles, resistent to methicillin and MRSA 1 of 4 bottles Assessment: 67 y/o male with history of HTN, CVA, Obstructive Uropathy, Contracture, Multiple Decubitus Ulcers, CT, DM, OA, Seizure Disorder, COPD, Dementia, Debility, BPH, well known to ID due to multiple admissions secondary to ducubitus ulcers infections and recurrent bacteremia, last time admitted on found with MRSA bacteremia dengley from decubitus ulcers mainly active large left trochanteric with bone exposure and sacral with bone exposure. Patient's infection was deemed incurable and hospice was recommended. Patient was discharged back to OR on IV vancomycin 1 gm every 48 hours for total 6 weeks ending 11/12/2018 via neck tunneled cath. Patient was readmitted on due to AMS, worsening SOB. Patient is lethargic and unable to provide history. At the OR he was found to have respiratory distress upon evaluation the morning of admission,pulse oximetry in the 80's: 1) Severe Sepsis: improving: Etiology most likely Recurrent Staph bacteremia +/- CAUTI. 2) Staph haemolyticus and MRSA bacteremia with recent MRSA bacteremia: Blood culture 11/01/2018 Staph haemolyticus 2 of 4 bottles and MRSA 1 of 4. Source likely multiple decubitus ulcers or Neck IV central line. Patient is failing vancomycin. He has a tunneled neck cath. Recent TTE negative for vegetations. 3) Recent septic shock due to polymicrobial bacteremia ESBL and carbapenem resistant E coli, MDR Proteus, Strep and E faecalis on 07/29/2018 probably from multiple infected decubitus ulcers and less likely UTI. Repeat blood cultures 07/31/2018 showed same MDR E coli 1 of 4 bottles then 08/06/2018 blood cultures showed no growth. Patient was treated with Vabomere for 14 days. 4) Multiple infected decubitus ulcers: with active large left trochanteric with bone exposure and sacral with bone exposure. His prognosis has been poor and hospice has been recommended several times in the past but family has declined. declined. His wounds are not curable considering his contractures, bed bound status and poor nutritional status. There was also suspicion of septic arthritis of left hip from decubitus ulcer. 5) Recurrent UTI: patient's bright was removed home 2 weeks ago, a new bright placed here 6) Acute encephalopathy: multifactorial. 7) Acute resp failure: was on BIPAP now NC O2 Recommendations: - remove neck central line - extensive discussion with daughter done on 11/04 regarding futility of antibiotic therapy as his wound infection is incurable. Patient is at risk for recurrent bacteremia, antibiotics side effects including C diff, nephrotoxicity and others. Wound is not healing due to MDR infection, severe contractures, malnutrition and multiple comorbilities. Daughter reported she spoke with patient about his wishes and he said to continue all interventions. She wants to honor his wishes but she understands he is sick. Refused hospice. - continue daptomycin IV for now D3 - continue cefepime for now D4 of 5 - f/u repeat blood culture and TTE - f/u blood cultures - always contact isolation - at discharge will do daptomycin IV for 6 weeks Poor prognosis Will follow. Penny Bernardo MD Infectious Diseases Marketing Strategy Lead [facility] ([facility]) M [phone] Subjective Date of service: 11/05/18 Principal diagnosis: bacteremia Interval history: Patient feels better, he desires all treatment, no fever Objective - Exam Narrative Exam: General appearance: alert in NAD Eyes: anicteric sclerae, moist conjunctivae; no lid-lag; PERRLA HENT: Atraumatic; oropharynx limited Neck: Trachea midline; supple, no thyromegaly or lymphadenopathy Lungs: CTA CV: RRR no murmur Abdomen: Soft, non-tender Extremities: marked legs contractions, multiple decubitus ulcers covered with dressings Skin: multiple skin tears Psych: no agitated. Neuro: somnolent - Constitutional Vitals: Vital Signs Temp Pulse Resp BP Pulse Ox 98.5 F 93 H 19 111/72 100 11/05/18 04:00 11/05/18 07:59 11/05/18 07:59 11/05/18 05:00 11/05/18 08:00 Temperature -Last 24 Hours Temperature 98.5 F Temperature 98.4 F Temperature 97.6 F Temperature 97.6 F Temperature 99.1 F Temperature 97.6 F - Labs CBC & Chem 7: 11/05/18 04:50 11/05/18 04:50 Labs: Abnormal lab results 11/05/18 11/05/18 Range/Units 04:50 04:50 RBC 3.03 L (3.65-5.03) M/mm3 Hgb 8.7 L (11.8-15.2) gm/dl Hct 26.6 L (35.5-45.6) % RDW 17.1 H (13.2-15.2) % Plt Count 502 H (140-440) K/mm3 Sodium 149 H (137-145) mmol/L Chloride 114.4 H (98-107) mmol/L Carbon Dioxide 21 L (22-30) mmol/L BUN 50 H (9-20) mg/dL Glucose 108 H (75-100) mg/dL
[2018-11-05] MEDS: MAXIPIME/NS 1 GM/100 ML 1 GM/100 ML BAG IV SCH ×2 (14:44→21:51)
--- NOTE | 2018-11-05 16:18 | Progress Note ---
Assessment and Plan Assessment and plan: 67 YO Male Residential Facility Resident as [facility] with HTN, CVA, Obstructive Uropathy, Diastolic CHF, Contracture, Sacral Decubitus Ulcers, ID, DM, OA, Seizure Disorder, COPD, Dementia, BPH presents to ED for evaluation. Pt is stuporous and unable to provide history. Pt history taken from ED Staff, EMS, and SNF Staff. As per staff, the patient was found to have respiratory distress upon evaluation this morning. Pt found to have pulse oximetry in the 80's. EMS notified and patient subsequently transported to [facility] for further care and evaluation. Pt seen and evaluated in ED and found to have UTI, Sepsis, Encephalopathy as well as Acute Hypoxemic Respiratory Failure. Pt initiated on NIPPV in ED with improvement in symptoms. Pt admitted to IMCU and initiated on Sepsis protocol. Prior admission on 10/01/18 reviewed. Extensive discussion with family about patients poor prognosis surgery consulted for possible debridment ID following, Pulmonary status improved Continue isolation care Chaudhary placed by Urology please do not remove Sepsis Continue IMCU care, place on isolation, ID consult noted, patient is on IV daptomycin blood cultures with gram positive Multiple hx of MRSA, Multi organ Monitor uop q shift. ID recumbent because Synthroid Respiratory failure Supplemental oxygen, nebulizer therapy,pulse oximetry, Chest X ray, NIPPV UNABLE TO GET v/q scan Pulmonary following the patient Anemia of chronic disease Transfuse one unit PRBC hemoglobin is stable Seizure Continue current therapy, seizure precautions. UTI (urinary tract infection) IV antibiotic therapy, CBC, CMP, Urinalysis. BPH Continue Chaudhary catherter Dementia IVF resuscitation therapy, supportive care, treat sepsis. sacral pressure ulcer -infected. POA WOUND CARE CONSULT. CONTINUE ABX. DVT prophylaxis Current Visit: Yes Status: Acute Plan to address problem: SCD to BLE while in bed, Prophylactic lovenox POOR PROGNOSIS Disposition; will DC back to SNF once ID cleared him. History Interval history: Patient was seen and evaluated this morning, patient states that he doesn't have pain. Hospitalist Physical - Physical exam Narrative exam: Not in cardiopulmonary distress. The patient appeared well nourished and normally developed. Vital signs as documented. Head exam is unremarkable. No scleral icterus . Neck is without jugular venous distension, thyromegaly, or carotid bruits. Lungs are clear to auscultation. Cardiac exam reveals regular rate and Rhythm. First and second heart sounds normal. No murmurs, rubs or gallops. Abdominal exam reveals normal bowel sounds, no masses, no organomegaly and no aortic enlargement. Extremities contracted extremities. 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 No focal weakness. Skin; multiple decubitus ulcers, including the sacrum and the heel. - Constitutional Vitals: Temp Pulse Resp BP Pulse Ox 98.4 F 94 H 25 H 111/72 96 11/05/18 12:00 11/05/18 09:10 11/05/18 09:10 11/05/18 05:00 11/05/18 09:10 General appearance: Present: mild distress Results - Labs CBC & Chem 7: 11/06/18 05:42 11/06/18 05:42 Labs: Laboratory Last Values WBC 9.5 K/mm3 (4.5-11.0) 11/05/18 04:50 RBC 3.03 M/mm3 (3.65-5.03) L 11/05/18 04:50 Hgb 8.7 gm/dl (11.8-15.2) L 11/05/18 04:50 Hct 26.6 % (35.5-45.6) L 11/05/18 04:50 MCV 88 fl (84-94) 11/05/18 04:50 MCH 29 pg (28-32) 11/05/18 04:50 MCHC 33 % (32-34) 11/05/18 04:50 RDW 17.1 % (13.2-15.2) H 11/05/18 04:50 Plt Count 502 K/mm3 (140-440) H 11/05/18 04:50 Lymph % (Auto) 6.5 % (13.4-35.0) L 11/01/18 14:50 [place] % (Auto) 8.5 % (0.0-7.3) H 11/01/18 14:50 Eos % (Auto) 1.0 % (0.0-4.3) 11/01/18 14:50 Baso % (Auto) 0.6 % (0.0-1.8) 11/01/18 14:50 Lymph # 1.0 K/mm3 (1.2-5.4) L 11/01/18 14:50 [place] # 1.3 K/mm3 (0.0-0.8) H 11/01/18 14:50 Eos # 0.1 K/mm3 (0.0-0.4) 11/01/18 14:50 Baso # 0.1 K/mm3 (0.0-0.1) 11/01/18 14:50 Seg Neutrophils % 83.4 % (40.0-70.0) H 11/01/18 14:50 Seg Neutrophils # 12.7 K/mm3 (1.8-7.7) H 11/01/18 14:50 PT 16.3 Sec. (12.2-14.9) H 11/01/18 14:50 INR 1.35 (0.87-1.13) H 11/01/18 14:50 POC ABG pH 7.494 (7.35-7.45) H 11/01/18 15:27 POC ABG pCO2 34.5 (35-45) L 11/01/18 15:27 POC ABG pO2 139 (80-105) H 11/01/18 15:27 POC ABG HCO3 26.5 (22-26 mml/L) 11/01/18 15:27 POC ABG Total CO2 28 (23-27mmol/L) 11/01/18 15:27 POC ABG O2 Sat 99 11/01/18 15:27 POC ABG Base Excess 3 ((-2) - (+3)mmol/L) 11/01/18 15:27 VBG pH 7.499 (7.320-7.420) H 11/01/18 14:50 50 % 11/01/18 15:27 Sodium 149 mmol/L (137-145) H 11/05/18 04:50 Potassium 3.6 mmol/L (3.6-5.0) 11/05/18 04:50 Chloride 114.4 mmol/L (98-107) H 11/05/18 04:50 Carbon Dioxide 21 mmol/L (22-30) L 11/05/18 04:50 17 mmol/L 11/05/18 04:50 BUN 50 mg/dL (9-20) H 11/05/18 04:50 1.0 mg/dL (0.8-1.5) 11/05/18 04:50 Estimated GFR > 60 ml/min 11/05/18 04:50 50 % 11/05/18 04:50 Glucose 108 mg/dL (75-100) H 11/05/18 04:50 Lactic Acid 1.80 mmol/L (0.7-2.0) 11/01/18 14:50 Calcium 9.1 mg/dL (8.4-10.2) 11/05/18 04:50 0.30 mg/dL (0.1-1.2) 11/01/18 14:50 AST 90 units/L (5-40) H 11/01/18 14:50 ALT 77 units/L (7-56) H 11/01/18 14:50 350 units/L (35-129) H 11/01/18 14:50 NT-Pro-B Natriuret Pep 6776 pg/mL (0-900) H 11/01/18 14:50 7.9 g/dL (6.3-8.2) 11/01/18 14:50 1.6 g/dL (3.9-5) L 11/01/18 14:50 0.3 % 11/01/18 14:50 Yellow (Yellow) 11/01/18 15:57 Turbid (Clear) 11/01/18 15:57 6.0 (5.0-7.0) 11/01/18 15:57 Ur Specific [place] 1.016 (1.003-1.030) 11/01/18 15:57 100 mg/dl mg/dL (Negative) 11/01/18 15:57 Neg mg/dL (Negative) 11/01/18 15:57 Neg mg/dL (Negative) 11/01/18 15:57 Neg (Negative) 11/01/18 15:57 Neg (Negative) 11/01/18 15:57 Neg (Negative) 11/01/18 15:57 < 2.0 mg/dL (<2.0) 11/01/18 15:57 Ur Leukocyte Esterase Mod (Negative) 11/01/18 15:57 > 182.0 /HPF (0.0-6.0) H 11/01/18 15:57 40.0 /HPF (0.0-6.0) 11/01/18 15:57 U Epithel Cells (Auto) 8.0 /HPF (0-13.0) 11/01/18 15:57 3+ /HPF 11/01/18 15:57 3+ /HPF 11/01/18 15:57 Random Vancomycin 13.9 ug/mL (0-40.0) 11/02/18 05:05 Blood Type O POSITIVE 11/03/18 12:51 Antibody Screen Negative 11/03/18 12:51 Crossmatch See Detail 11/03/18 12:51 Active Medications - Current Medications Current Medications: Generic Name Dose Route Start Last Admin Trade Name Freq PRN Reason Stop Dose Admin Acetaminophen 650 mg 11/01/18 17:38 11/04/18 15:49 Tylenol FEEDTUBE 650 mg Q4H PRN Administration Pain, Moderate (4-6) Albuterol 2.5 mg 11/01/18 17:15 Proventil IH Q3HRT PRN Shortness Of Breath Albuterol/Ipratropium 1 ampul 11/01/18 22:00 11/05/18 09:49 Duoneb *Not For Prn Use* IH 1 ampul BID NORA Administration Lipase/Protease/Amylase 1 each 11/03/18 17:12 Pancreaze 10,500 Unit FEEDTUBE PRN PRN For Clogged Feeding Tube Ascorbic Acid 500 mg 11/01/18 22:00 11/04/18 21:59 Vitamin C FEEDTUBE 500 mg BID NORA Administration Atorvastatin Calcium 40 mg 11/01/18 22:00 11/04/18 21:59 Lipitor FEEDTUBE 40 mg QHS NORA Administration Clonidine HCl 0.2 mg 11/05/18 17:18 Catapres-Tts Patch TD Tu [facility] Enoxaparin Sodium 40 mg 11/02/18 10:00 11/05/18 10:45 Lovenox SUB-Q 40 mg QDAY@1000 NORA Administration Cefepime HCl 1 gm in 100 mls @ 200 mls/hr 11/02/18 14:00 11/04/18 21:53 Maxipime/Ns 1 Gm/100 Ml IV 11/06/18 23:59 200 mls/hr Q8HR NORA Administration Protocol Daptomycin 400 mg/ Sodium 100 mls @ 200 mls/hr 11/03/18 21:00 11/04/18 23:08 Chloride IV 200 mls/hr Q24H NORA Administration Protocol Levetiracetam 500 mg 11/01/18 22:00 11/05/18 10:53 Keppra FEEDTUBE 500 mg BID NORA Administration Morphine Sulfate 2 mg 11/01/18 17:15 11/04/18 17:59 Morphine IV 2 mg Q4H PRN Administration Pain, Moderate (4-6) Multivitamins 5 ml 11/02/18 10:00 11/05/18 10:52 Centrum Liq FEEDTUBE 5 ml QDAY NORA Administration Simple Syrup 15 ml 11/03/18 17:12 Simple Syrup FEEDTUBE PRN PRN Hypoglycemia Simple Syrup 30 ml 11/03/18 17:12 Simple Syrup FEEDTUBE PRN PRN Hypoglycemia Sodium Bicarbonate 325 mg 11/03/18 17:12 Sodium Bicarbonate FEEDTUBE PRN PRN For Clogged Feeding Tube Sodium Chloride 10 ml 11/01/18 22:00 11/04/18 21:54 Sodium Chloride Flush Syringe 10 Ml IV 10 ml BID NORA Administration Sodium Chloride 10 ml 11/01/18 17:15 Sodium Chloride Flush Syringe 10 Ml IV PRN PRN LINE FLUSH Zinc Sulfate 220 mg 11/02/18 10:00 11/04/18 15:38 Zinc Sulfate PO 220 mg DAILY NORA Administration Nutrition/Malnutrition Assess - Dietary Evaluation Nutrition/Malnutrition Findings: Nutrition Notes Start: 11/04/18 16:00 Freq: Status: Active Protocol: Document 11/04/18 16:00 RM (Rec: 11/04/18 16:08 RM [id number]) Nutrition Notes Need for Assessment generated from: MD Order Initial or Follow up Assessment Current Diagnosis COPD,Diabetes,Hypertension, Stroke Other Pertinent Diagnosis Sacral PUs, UTI, Dementia Current Diet Nepro at 20 ml/hr Labs/Tests Reviewed Pertinent Medications Reviewed Height 5 ft 8 in Weight 63 kg [place] Body Weight (kg) 70.00 BMI 21.1 Subjective/Other Information Consulted for TF recommendation. Screened for skin risk. Miky 10 points. Burn Absent Trauma Absent #1 Nutrition Diagnosis Inadequate oral intake Etiology dementia, CVA As Evidenced by Signs and Symptoms TF consult Is patient on ventilator? No Is Patient Ambulatory and/or Out of Bed No REE-([facility]-confined to bed) [phone] Calculation Used for Recommendations [facility] Additional Notes Protein Needs: 76-95g (1.2-1. 5g/kg) Fluid Needs: 1 ml/kcal Nutrition Intervention Nutrition Support: Glucerna at 60 ml/hr. Water flush of 100 mls q 4 hrs . Kcal 1,728 Protein (gm) 86 Fluid (mL) 1,159 Goal #1 TF tolerance Goal #2 Meet at least 75% of calorie and protein needs via TF Anticipated Discharge Needs: Unable to determine at this time Follow-Up By: 11/06/18 Additional Comments Follow for new TF
--- NOTE | 2018-11-05 17:21 | Progress Note ---
Assessment and Plan Patient weak and contracted. Patient resting on 5L O2. No acute respiratory distress. O2 sat 96%. Patient having a echo cardiogram at this time. Patient following simple command. - Patient Problems (1) Respiratory failure Current Visit: Yes Status: Acute Qualifiers: Chronicity: acute Respiratory failure complication: hypoxia Qualified Code(s): J96.01 - Acute respiratory failure with hypoxia Plan to address problem: Continue O2 supplementation. Albuterol and Atrovent treatment q6h. Patient is on Cefepime and Diatomicine. Continue SQ Levonox. Recommend GI prophylexis. (2) Seizure Current Visit: Yes Status: Acute Plan to address problem: Management as per neurologist. (3) Sepsis Current Visit: Yes Status: Acute Plan to address problem: Patient is on Cefipime and Daptomicine. (4) UTI (urinary tract infection) Current Visit: Yes Status: Acute Qualifiers: Encounter type: initial encounter Plan to address problem: Patient is on Cefepime and Daptomycine. (5) ARF (acute renal failure) with tubular necrosis Current Visit: No Status: Acute Plan to address problem: Management as per Nephrology. Subjective Date of service: 11/05/18 Principal diagnosis: bacteremia Interval history: Patient weak and contracted. Patient resting on 5L O2. No acute respiratory distress. O2 sat 96%. Patient having a echo cardiogram at this time. Patient following simple command. Objective - Exam Narrative Exam: General appearance: alert in NAD Eyes: anicteric sclerae, moist conjunctivae; no lid-lag; PERRLA HENT: Atraumatic; oropharynx limited Neck: Trachea midline; supple, no thyromegaly or lymphadenopathy Lungs: CTA CV: RRR no murmur Abdomen: Soft, non-tender Extremities: marked legs contractions, multiple decubitus ulcers covered with dressings Skin: multiple skin tears Psych: no agitated. Neuro: somnolent Vital Signs - 12hr 11/05/18 11/05/18 11/05/18 07:59 08:00 09:10 Temperature 98.7 F Pulse Rate [ 93 H Bilateral Throughout] Pulse Rate [ 94 H From Monitor] Respiratory 25 H Rate Respiratory 19 Rate [Bilateral Throughout] O2 Sat by Pulse 100 96 Oximetry 11/05/18 12:00 Temperature 98.4 F Pulse Rate [ Bilateral Throughout] Pulse Rate [ From Monitor] Respiratory Rate Respiratory Rate [Bilateral Throughout] O2 Sat by Pulse Oximetry Constitutional: no acute distress, alert, other (Patient weak and contacted) Eyes: non-icteric ENT: oropharynx moist Neck: supple, no lymphadenopathy Effort: normal Ascultation: Bilateral: diminished breath sounds Cardiovascular: regular rate and rhythm Gastrointestinal: normoactive bowel sounds, soft, non-tender Integumentary: normal Extremities: no cyanosis, no edema, other (Patient has pressure ulcer at multiple areas, including sacral area.) Neurologic: non-focal exam, pupils equal and round Psychiatric: other (unable to assess ) CBC and BMP: 11/05/18 04:50 11/05/18 04:50 ABG, PT/INR, D-dimer: ABG POC ABG pH 7.494 (7.35-7.45) H 11/01/18 15:27 POC ABG pCO2 34.5 (35-45) L 11/01/18 15:27 POC ABG pO2 139 (80-105) H 11/01/18 15:27 POC ABG HCO3 26.5 (22-26 mml/L) 11/01/18 15:27 POC ABG Total CO2 28 (23-27mmol/L) 11/01/18 15:27 POC ABG O2 Sat 99 11/01/18 15:27 PT/INR, D-dimer PT 16.3 Sec. (12.2-14.9) H 11/01/18 14:50 INR 1.35 (0.87-1.13) H 11/01/18 14:50 Abnormal lab findings: Abnormal Labs 11/01/18 11/01/18 11/01/18 14:50 14:50 14:50 WBC 15.3 H RBC 2.76 L Hgb 7.9 L Hct 23.5 L MCH MCHC RDW 18.3 H Plt Count 567 H Lymph % (Auto) 6.5 L [place] % (Auto) 8.5 H Lymph # 1.0 L [place] # 1.3 H Seg Neutrophils % 83.4 H Seg Neutrophils # 12.7 H PT 16.3 H INR 1.35 H POC ABG pH POC ABG pCO2 POC ABG pO2 VBG pH Sodium Chloride Carbon Dioxide BUN 49 H Glucose 132 H AST 90 H ALT 77 H Alkaline Phosphatase 350 H NT-Pro-B Natriuret Pep Albumin 1.6 L Urine WBC (Auto) Crossmatch 11/01/18 11/01/18 11/01/18 14:50 14:50 15:27 WBC RBC Hgb Hct MCH MCHC RDW Plt Count Lymph % (Auto) [place] % (Auto) Lymph # [place] # Seg Neutrophils % Seg Neutrophils # PT INR POC ABG pH 7.494 H POC ABG pCO2 34.5 L POC ABG pO2 139 H VBG pH 7.499 H Sodium Chloride Carbon Dioxide BUN Glucose AST ALT Alkaline Phosphatase NT-Pro-B Natriuret Pep 6776 H Albumin Urine WBC (Auto) Crossmatch 11/01/18 11/03/18 11/03/18 15:57 03:41 03:41 WBC 12.8 H RBC 2.55 L Hgb 6.9 L Hct 22.2 L MCH 27 L MCHC 31 L RDW 17.9 H Plt Count 519 H Lymph % (Auto) [place] % (Auto) Lymph # [place] # Seg Neutrophils % Seg Neutrophils # PT INR POC ABG pH POC ABG pCO2 POC ABG pO2 VBG pH Sodium 147 H Chloride 110.3 H Carbon Dioxide BUN 55 H Glucose AST ALT Alkaline Phosphatase NT-Pro-B Natriuret Pep Albumin Urine WBC (Auto) > 182.0 H Crossmatch 11/03/18 11/04/18 11/04/18 12:51 05:12 05:12 WBC 11.5 H RBC 2.94 L Hgb 8.3 L Hct 25.3 L MCH MCHC RDW 17.3 H Plt Count 514 H Lymph % (Auto) [place] % (Auto) Lymph # [place] # Seg Neutrophils % Seg Neutrophils # PT INR POC ABG pH POC ABG pCO2 POC ABG pO2 VBG pH Sodium 147 H Chloride 112.4 H Carbon Dioxide BUN 52 H Glucose AST ALT Alkaline Phosphatase NT-Pro-B Natriuret Pep Albumin Urine WBC (Auto) Crossmatch See Detail 11/05/18 11/05/18 04:50 04:50 WBC RBC 3.03 L Hgb 8.7 L Hct 26.6 L MCH MCHC RDW 17.1 H Plt Count 502 H Lymph % (Auto) [place] % (Auto) Lymph # [place] # Seg Neutrophils % Seg Neutrophils # PT INR POC ABG pH POC ABG pCO2 POC ABG pO2 VBG pH Sodium 149 H Chloride 114.4 H Carbon Dioxide 21 L BUN 50 H Glucose 108 H AST ALT Alkaline Phosphatase NT-Pro-B Natriuret Pep Albumin Urine WBC (Auto) Crossmatch
[2018-11-05] MEDS: CATAPRES-TTS PATCH TD SCH (18:49)
[2018-11-05] MEDS: DAPTOMYCIN IV SCH (21:15)
[2018-11-05] MEDS: NACL 0.9% IV SCH (21:15)
[2018-11-06 06:15] LABS: Basophils # (Auto) 0.1 K/mm3 (0.0-0.1); Basophils % (Auto) 0.7 % (0.0-1.8); Eosinophils # (Auto) 0.5 K/mm3 (0.0-0.4); Eosinophils % (Auto) 4.7 % (0.0-4.3); Hematocrit 24.7 % (35.5-45.6); Hemoglobin 7.9 gm/dl (11.8-15.2); Lymphocytes % (Auto) 10.4 % (13.4-35.0); Mean Corpuscular HGB Conc 32 % (32-34); Mean Corpuscular Volume 88 fl (84-94); Monocytes # (Auto) 0.8 K/mm3 (0.0-0.8); Monocytes % (Auto) 8.6 % (0.0-7.3); Platelet Count 478 K/mm3 (140-440)
[2018-11-06 06:33] LABS: BUN/Creatinine Ratio 45; Blood Urea Nitrogen 50 mg/dL (9-20); Calcium 8.6 mg/dL (8.4-10.2); Hemolysis Index 1
[2018-11-06] MEDS: MAXIPIME/NS 1 GM/100 ML 1 GM/100 ML BAG IV SCH ×4 (07:34→23:13)
[2018-11-06] MEDS: DUONEB *Not for PRN Use IH SCH ×4 (07:44→22:34)
[2018-11-06] MEDS: LOVENOX SUB-Q SCH (10:28)
[2018-11-06] MEDS: VITAMIN C FEEDTUBE SCH ×2 (10:28→22:25)
[2018-11-06] MEDS: KEPPRA FEEDTUBE SCH ×2 (10:28→22:25)
[2018-11-06] MEDS: Centrum Liq FEEDTUBE SCH (10:28)
[2018-11-06] MEDS: SODIUM CHLORIDE FLUSH SYRINGE 10 ML IV SCH ×2 (10:28→22:25)
[2018-11-06] MEDS: ZINC SULFATE PO SCH (10:33)
[2018-11-06] MEDS: TYLENOL FEEDTUBE PRN (10:33)
--- NOTE | 2018-11-06 14:19 | Progress Note ---
Assessment and Plan Cultures: Blood culture 10/01/2018 MRSA 2 of 4. Blood culture 10/03/2018 MRSA Blood culture 10/08/2018 no growth Blood culture 10/11/2018 no growth Blood culture 10/21/2018 no growth Blood culture 11/01/2018 Staph haemolyticus 2 of 4 bottles, resistent to methicillin and MRSA 1 of 4 bottles Blood culture 11/04/2018 no growth today Assessment: 67 y/o male with history of HTN, CVA, Obstructive Uropathy, Contracture, Multiple Decubitus Ulcers, MA, DM, OA, Seizure Disorder, COPD, Dementia, Debility, BPH, well known to ID due to multiple admissions secondary to ducubitus ulcers infections and recurrent bacteremia, last time admitted on 10/02/2018 found with MRSA bacteremia jessica from decubitus ulcers mainly active large left trochanteric with bone exposure and sacral with bone exposure. Patient's infection was deemed incurable and hospice was recommended. Patient was discharged back to [facility] on IV vancomycin 1 gm every 48 hours for total 6 weeks ending 11/12/2018 via neck tunneled cath. Patient was readmitted on due to AMS, worsening SOB. Patient is lethargic and unable to provide history. At the [facility] he was found to have respiratory distress upon evaluation the morning of admission,pulse oximetry in the 80's: 1) Severe Sepsis: improving: Etiology most likely Recurrent Staph bacteremia +/- CAUTI. 2) Staph haemolyticus and MRSA bacteremia with recent MRSA bacteremia: Blood culture 11/01/2018 Staph haemolyticus 2 of 4 bottles and MRSA 1 of 4. Source likely multiple decubitus ulcers or Neck IV central line. Patient is failing vancomycin. He has a tunneled neck cath. Recent TTE negative for vegetations. On daptomycin. 3) Recent septic shock due to polymicrobial bacteremia ESBL and carbapenem resistant E coli, MDR Proteus, Strep and E faecalis on 07/29/2018 probably from multiple infected decubitus ulcers and less likely UTI. Repeat blood cultures 07/31/2018 showed same MDR E coli 1 of 4 bottles then 08/06/2018 blood cultures showed no growth. Patient was treated with Vabomere for 14 days. 4) Multiple infected decubitus ulcers: with active large left trochanteric with bone exposure and sacral with bone exposure. His prognosis has been poor and hospice has been recommended several times in the past but family has declined. declined. His wounds are not curable considering his contractures, bed bound status and poor nutritional status. There was also suspicion of septic arthritis of left hip from decubitus ulcer. 5) Recurrent UTI: patient's bright was removed home 2 weeks ago, a new bright placed here 6) Acute encephalopathy: multifactorial. 7) Acute resp failure: was on BIPAP now NC O2. EF 30-35% pericaldial and pleural effusion. Recommendations: - remove neck central line - pending - extensive discussion with daughter done on 11/04 regarding futility of antibiotic therapy as his wound infection is incurable. Patient is at risk for recurrent bacteremia, antibiotics side effects including C diff, nephrotoxicity and others. Wound is not healing due to MDR infection, severe contractures, malnutrition and multiple comorbilities. Daughter reported she spoke with patient about his wishes and he said to continue all interventions. She wants to honor his wishes but she understands he is sick. Refused hospice. - continue daptomycin IV for now D4 - stop cefepime for now D 5 of 5 - f/u repeat blood culture - cards eval reduced EF - f/u blood cultures - always contact isolation - OK to place a new PICC line - at discharge will do daptomycin 400 mg IV q day for 6 weeks until 12/16/2018 Poor prognosis Will follow. Penny Bernardo MD Infectious Diseases [employer] [facility] ([facility]) M [phone] Subjective Date of service: 11/06/18 Principal diagnosis: bacteremia Interval history: Patient feels better, talking, he desires all treatment, no fever Objective - Exam Narrative Exam: General appearance: alert in NAD Eyes: anicteric sclerae, moist conjunctivae; no lid-lag; PERRLA HENT: Atraumatic; oropharynx limited Neck: Trachea midline; supple, no thyromegaly or lymphadenopathy Lungs: CTA CV: RRR no murmur Abdomen: Soft, non-tender Extremities: marked legs contractions, multiple decubitus ulcers covered with dressings Skin: multiple skin tears Psych: no agitated. Neuro: somnolent - Constitutional Vitals: Vital Signs Temp Pulse Resp BP Pulse Ox 98.9 F 100 H 30 H 131/73 100 11/06/18 12:00 11/06/18 13:00 11/06/18 13:00 11/06/18 13:00 11/06/18 13:00 Temperature -Last 24 Hours Temperature 98.9 F Temperature 98.9 F Temperature 98.6 F Temperature 99.6 F Temperature 99.4 F - Labs CBC & Chem 7: 11/06/18 05:42 11/06/18 05:42 Labs: Abnormal lab results 11/06/18 11/06/18 Range/Units 05:42 05:42 RBC 2.80 L (3.65-5.03) M/mm3 Hgb 7.9 L (11.8-15.2) gm/dl Hct 24.7 L (35.5-45.6) % RDW 17.0 H (13.2-15.2) % Plt Count 478 H (140-440) K/mm3 Lymph % (Auto) 10.4 L (13.4-35.0) % [place] % (Auto) 8.6 H (0.0-7.3) % Eos % (Auto) 4.7 H (0.0-4.3) % Lymph # 1.0 L (1.2-5.4) K/mm3 Eos # 0.5 H (0.0-0.4) K/mm3 Seg Neutrophils % 75.6 H (40.0-70.0) % Sodium 149 H (137-145) mmol/L Chloride 113.4 H (98-107) mmol/L BUN 50 H (9-20) mg/dL Glucose 121 H (75-100) mg/dL
[2018-11-06] MEDS ORDERED: XYLOCAINE 2% UROJET ONE (15:21)
--- NOTE | 2018-11-06 15:44 | Progress Note ---
Assessment and Plan Assessment and plan: 67 YO Male Snf Facility Resident as [facility] with HTN, CVA, Obstructive Uropathy, Diastolic CHF, Contracture, Sacral Decubitus Ulcers, SC, DM, OA, Seizure Disorder, COPD, Dementia, BPH presents to ED for evaluation. Pt is stuporous and unable to provide history. Pt history taken from ED Staff, EMS, and SNF Staff. As per staff, the patient was found to have respiratory distress upon evaluation this morning. Pt found to have pulse oximetry in the 80's. EMS notified and patient subsequently transported to [facility] for further care and evaluation. Pt seen and evaluated in ED and found to have UTI, Sepsis, Encephalopathy as well as Acute Hypoxemic Respiratory Failure. Pt initiated on NIPPV in ED with improvement in symptoms. Pt admitted to IMCU and initiated on Sepsis protocol. Prior admission on 10/01/18 reviewed. Extensive discussion with family about patients poor prognosis surgery consulted for possible debridment ID following, Pulmonary status improved Continue isolation care Chaudhary placed by Urology please do not remove Sepsis Continue IMCU care, place on isolation, ID consult noted, patient is on IV daptomycin blood cultures with gram positive Multiple hx of MRSA, Multi organ Monitor uop q shift. ID recumbent because Synthroid Respiratory failure Supplemental oxygen, nebulizer therapy,pulse oximetry, Chest X ray, NIPPV UNABLE TO GET v/q scan Pulmonary following the patient Anemia of chronic disease Transfuse one unit PRBC hemoglobin is stable Seizure Continue current therapy, seizure precautions. UTI (urinary tract infection) IV antibiotic therapy, CBC, CMP, Urinalysis. BPH Continue Chaudhary catherter Dementia IVF resuscitation therapy, supportive care, treat sepsis. sacral pressure ulcer -infected. POA WOUND CARE CONSULT. CONTINUE ABX. DVT prophylaxis Current Visit: Yes Status: Acute Plan to address problem: SCD to BLE while in bed, Prophylactic lovenox POOR PROGNOSIS Disposition; will DC back to SNF once ID cleared him. History Interval history: Patient was seen and evaluated this morning, patient states that he doesn't have pain. Hospitalist Physical - Physical exam Narrative exam: Not in cardiopulmonary distress. The patient appeared well nourished and normally developed. Vital signs as documented. Head exam is unremarkable. No scleral icterus . Neck is without jugular venous distension, thyromegaly, or carotid bruits. Lungs are clear to auscultation. Cardiac exam reveals regular rate and Rhythm. First and second heart sounds normal. No murmurs, rubs or gallops. Abdominal exam reveals normal bowel sounds, no masses, no organomegaly and no aortic enlargement. Extremities contracted extremities. [employer]: Alert and oriented 3. No focal weakness. Skin; multiple decubitus ulcers, including the sacrum and the heel. - Constitutional Vitals: Temp Pulse Resp BP Pulse Ox 98.9 F 100 H 30 H 131/73 100 11/06/18 12:00 11/06/18 13:00 11/06/18 13:00 11/06/18 13:00 11/06/18 13:00 General appearance: Present: mild distress Results - Labs CBC & Chem 7: 11/06/18 05:42 11/06/18 05:42 Labs: Laboratory Last Values WBC 9.6 K/mm3 (4.5-11.0) 11/06/18 05:42 RBC 2.80 M/mm3 (3.65-5.03) L 11/06/18 05:42 Hgb 7.9 gm/dl (11.8-15.2) L 11/06/18 05:42 Hct 24.7 % (35.5-45.6) L 11/06/18 05:42 MCV 88 fl (84-94) 11/06/18 05:42 MCH 28 pg (28-32) 11/06/18 05:42 MCHC 32 % (32-34) 11/06/18 05:42 RDW 17.0 % (13.2-15.2) H 11/06/18 05:42 Plt Count 478 K/mm3 (140-440) H 11/06/18 05:42 Lymph % (Auto) 10.4 % (13.4-35.0) L 11/06/18 05:42 [place] % (Auto) 8.6 % (0.0-7.3) H 11/06/18 05:42 Eos % (Auto) 4.7 % (0.0-4.3) H 11/06/18 05:42 Baso % (Auto) 0.7 % (0.0-1.8) 11/06/18 05:42 Lymph # 1.0 K/mm3 (1.2-5.4) L 11/06/18 05:42 [place] # 0.8 K/mm3 (0.0-0.8) 11/06/18 05:42 Eos # 0.5 K/mm3 (0.0-0.4) H 11/06/18 05:42 Baso # 0.1 K/mm3 (0.0-0.1) 11/06/18 05:42 Seg Neutrophils % 75.6 % (40.0-70.0) H 11/06/18 05:42 Seg Neutrophils # 7.3 K/mm3 (1.8-7.7) 11/06/18 05:42 PT 16.3 Sec. (12.2-14.9) H 11/01/18 14:50 INR 1.35 (0.87-1.13) H 11/01/18 14:50 POC ABG pH 7.494 (7.35-7.45) H 11/01/18 15:27 POC ABG pCO2 34.5 (35-45) L 11/01/18 15:27 POC ABG pO2 139 (80-105) H 11/01/18 15:27 POC ABG HCO3 26.5 (22-26 mml/L) 11/01/18 15:27 POC ABG Total CO2 28 (23-27mmol/L) 11/01/18 15:27 POC ABG O2 Sat 99 11/01/18 15:27 POC ABG Base Excess 3 ((-2) - (+3)mmol/L) 11/01/18 15:27 VBG pH 7.499 (7.320-7.420) H 11/01/18 14:50 50 % 11/01/18 15:27 Sodium 149 mmol/L (137-145) H 11/06/18 05:42 Potassium 4.0 mmol/L (3.6-5.0) 11/06/18 05:42 Chloride 113.4 mmol/L (98-107) H 11/06/18 05:42 Carbon Dioxide 23 mmol/L (22-30) 11/06/18 05:42 17 mmol/L 11/06/18 05:42 BUN 50 mg/dL (9-20) H 11/06/18 05:42 1.1 mg/dL (0.8-1.5) 11/06/18 05:42 Estimated GFR > 60 ml/min 11/06/18 05:42 45 % 11/06/18 05:42 Glucose 121 mg/dL (75-100) H 11/06/18 05:42 Lactic Acid 1.80 mmol/L (0.7-2.0) 11/01/18 14:50 Calcium 8.6 mg/dL (8.4-10.2) 11/06/18 05:42 0.30 mg/dL (0.1-1.2) 11/01/18 14:50 AST 90 units/L (5-40) H 11/01/18 14:50 ALT 77 units/L (7-56) H 11/01/18 14:50 350 units/L (35-129) H 11/01/18 14:50 NT-Pro-B Natriuret Pep 6776 pg/mL (0-900) H 11/01/18 14:50 7.9 g/dL (6.3-8.2) 11/01/18 14:50 1.6 g/dL (3.9-5) L 11/01/18 14:50 0.3 % 11/01/18 14:50 Yellow (Yellow) 11/01/18 15:57 Turbid (Clear) 11/01/18 15:57 6.0 (5.0-7.0) 11/01/18 15:57 Ur Specific [place] 1.016 (1.003-1.030) 11/01/18 15:57 100 mg/dl mg/dL (Negative) 11/01/18 15:57 Neg mg/dL (Negative) 11/01/18 15:57 Neg mg/dL (Negative) 11/01/18 15:57 Neg (Negative) 11/01/18 15:57 Neg (Negative) 11/01/18 15:57 Neg (Negative) 11/01/18 15:57 < 2.0 mg/dL (<2.0) 11/01/18 15:57 Ur Leukocyte Esterase Mod (Negative) 11/01/18 15:57 > 182.0 /HPF (0.0-6.0) H 11/01/18 15:57 40.0 /HPF (0.0-6.0) 11/01/18 15:57 U Epithel Cells (Auto) 8.0 /HPF (0-13.0) 11/01/18 15:57 3+ /HPF 11/01/18 15:57 3+ /HPF 11/01/18 15:57 Random Vancomycin 13.9 ug/mL (0-40.0) 11/02/18 05:05 Blood Type O POSITIVE 11/03/18 12:51 Antibody Screen Negative 11/03/18 12:51 Crossmatch See Detail 11/03/18 12:51 Active Medications - Current Medications Current Medications: Generic Name Dose Route Start Last Admin Trade Name Freq PRN Reason Stop Dose Admin Acetaminophen 650 mg 11/01/18 17:38 11/06/18 10:33 Tylenol FEEDTUBE 650 mg Q4H PRN Administration Pain, Moderate (4-6) Albuterol 2.5 mg 11/01/18 17:15 Proventil IH Q3HRT PRN Shortness Of Breath Albuterol/Ipratropium 1 ampul 11/01/18 22:00 11/06/18 13:09 Duoneb *Not For Prn Use* IH Not Given BID [facility] Lipase/Protease/Amylase 1 each 11/03/18 17:12 Pancreaze 10,500 Unit FEEDTUBE PRN PRN For Clogged Feeding Tube Ascorbic Acid 500 mg 11/01/18 22:00 11/06/18 10:28 Vitamin C FEEDTUBE 500 mg BID NORA Administration Atorvastatin Calcium 40 mg 11/01/18 22:00 11/05/18 21:57 Lipitor FEEDTUBE 40 mg QHS NORA Administration Clonidine HCl 0.2 mg 11/05/18 17:18 11/05/18 18:49 Catapres-Tts Patch TD 0.2 mg Tu NORA Administration Enoxaparin Sodium 40 mg 11/02/18 10:00 11/06/18 10:28 Lovenox SUB-Q 40 mg QDAY@1000 NORA Administration Cefepime HCl 1 gm in 100 mls @ 200 mls/hr 11/02/18 14:00 11/06/18 07:34 Maxipime/Ns 1 Gm/100 Ml IV 11/06/18 23:59 200 mls/hr Q8HR NORA Administration Protocol Daptomycin 400 mg/ Sodium 100 mls @ 200 mls/hr 11/03/18 21:00 11/05/18 21:15 Chloride IV 200 mls/hr Q24H NORA Administration Protocol Levetiracetam 500 mg 11/01/18 22:00 11/06/18 10:28 Keppra FEEDTUBE 500 mg BID NORA Administration Morphine Sulfate 2 mg 11/01/18 17:15 11/04/18 17:59 Morphine IV 2 mg Q4H PRN Administration Pain, Moderate (4-6) Multivitamins 5 ml 11/02/18 10:00 11/06/18 10:28 Centrum Liq FEEDTUBE 5 ml QDAY NORA Administration Simple Syrup 15 ml 11/03/18 17:12 Simple Syrup FEEDTUBE PRN PRN Hypoglycemia Simple Syrup 30 ml 11/03/18 17:12 Simple Syrup FEEDTUBE PRN PRN Hypoglycemia Sodium Bicarbonate 325 mg 11/03/18 17:12 Sodium Bicarbonate FEEDTUBE PRN PRN For Clogged Feeding Tube Sodium Chloride 10 ml 11/01/18 22:00 11/06/18 10:28 Sodium Chloride Flush Syringe 10 Ml IV 10 ml BID NORA Administration Sodium Chloride 10 ml 11/01/18 17:15 Sodium Chloride Flush Syringe 10 Ml IV PRN PRN LINE FLUSH Zinc Sulfate 220 mg 11/02/18 10:00 11/06/18 10:33 Zinc Sulfate PO 220 mg DAILY NORA Administration Nutrition/Malnutrition Assess - Dietary Evaluation Nutrition/Malnutrition Findings: Nutrition Notes Start: 11/04/18 16:00 Freq: Status: Active Protocol: Document 11/04/18 16:00 RM (Rec: 11/04/18 16:08 RM [id number]) Nutrition Notes Need for Assessment generated from: MD Order Initial or Follow up Assessment Current Diagnosis COPD,Diabetes,Hypertension, Stroke Other Pertinent Diagnosis Sacral PUs, UTI, Dementia Current Diet Nepro at 20 ml/hr Labs/Tests Reviewed Pertinent Medications Reviewed Height 5 ft 8 in Weight 63 kg [place] Body Weight (kg) 70.00 BMI 21.1 Subjective/Other Information Consulted for TF recommendation. Screened for skin risk. Miky 10 points. Burn Absent Trauma Absent #1 Nutrition Diagnosis Inadequate oral intake Etiology dementia, CVA As Evidenced by Signs and Symptoms TF consult Is patient on ventilator? No Is Patient Ambulatory and/or Out of Bed No REE-([facility]-confined to bed) 9669.172 Calculation Used for Recommendations [facility] Additional Notes Protein Needs: 76-95g (1.2-1. 5g/kg) Fluid Needs: 1 ml/kcal Nutrition Intervention Nutrition Support: Glucerna at 60 ml/hr. Water flush of 100 mls q 4 hrs . Kcal 1,728 Protein (gm) 86 Fluid (mL) 1,159 Goal #1 TF tolerance Goal #2 Meet at least 75% of calorie and protein needs via TF Anticipated Discharge Needs: Unable to determine at this time Follow-Up By: 11/06/18 Additional Comments Follow for new TF
--- NOTE | 2018-11-06 17:24 | Progress Note ---
Assessment and Plan Patient weak and contracted. Patient resting on 3L O2. No acute respiratory distress. O2 sat 100%. Patient following simple commands. - Patient Problems (1) Respiratory failure Current Visit: Yes Status: Acute Qualifiers: Chronicity: acute Respiratory failure complication: hypoxia Qualified Code(s): J96.01 - Acute respiratory failure with hypoxia Plan to address problem: Continue O2 supplementation. Albuterol and Atrovent treatment q6h. Patient is on Cefepime and Diatomycine. Continue SQ Levonox. Recommend GI prophylexis. (2) Seizure Current Visit: Yes Status: Acute Plan to address problem: Management as per neurologist. (3) Sepsis Current Visit: Yes Status: Acute Plan to address problem: Patient is on Cefipime and Daptomycine. (4) UTI (urinary tract infection) Current Visit: Yes Status: Acute Qualifiers: Encounter type: initial encounter Plan to address problem: Patient is on Cefepime and Daptomycine. (5) ARF (acute renal failure) with tubular necrosis Current Visit: No Status: Acute Plan to address problem: Management as per Nephrology. Subjective Date of service: 11/06/18 Principal diagnosis: bacteremia Interval history: Patient weak and contracted. Patient resting on 3L O2. No acute respiratory distress. O2 sat 100%. Patient following simple commands. Objective Vital Signs - 12hr 11/06/18 11/06/18 11/06/18 06:00 07:00 07:45 Temperature Pulse Rate 89 92 H Pulse Rate [ 88 Bilateral Throughout] Pulse Rate [ From Monitor] Respiratory 18 27 H Rate Respiratory 18 Rate [Bilateral Throughout] Blood Pressure 118/76 139/77 O2 Sat by Pulse 100 99 Oximetry 11/06/18 11/06/18 11/06/18 07:46 07:51 08:00 Temperature 98.9 F Pulse Rate 98 H Pulse Rate [ 89 Bilateral Throughout] Pulse Rate [ 101 H From Monitor] Respiratory 26 H Rate Respiratory 18 Rate [Bilateral Throughout] Blood Pressure 131/76 O2 Sat by Pulse 96 100 Oximetry 11/06/18 11/06/18 11/06/18 09:00 10:00 11:00 Temperature Pulse Rate 92 H 97 H 99 H Pulse Rate [ Bilateral Throughout] Pulse Rate [ From Monitor] Respiratory 25 H 24 25 H Rate Respiratory Rate [Bilateral Throughout] Blood Pressure 142/80 145/79 136/77 O2 Sat by Pulse 100 100 100 Oximetry 11/06/18 11/06/18 11/06/18 12:00 13:00 14:00 Temperature 98.9 F Pulse Rate 95 H 100 H 98 H Pulse Rate [ Bilateral Throughout] Pulse Rate [ 91 H From Monitor] Respiratory 32 H 30 H 31 H Rate Respiratory Rate [Bilateral Throughout] Blood Pressure 123/68 131/73 127/74 O2 Sat by Pulse 100 100 100 Oximetry 11/06/18 11/06/18 15:00 16:00 Temperature 97.9 F Pulse Rate 100 H 100 H Pulse Rate [ Bilateral Throughout] Pulse Rate [ 102 H From Monitor] Respiratory 41 H 24 Rate Respiratory Rate [Bilateral Throughout] Blood Pressure 139/78 143/77 O2 Sat by Pulse 100 100 Oximetry Constitutional: no acute distress, alert, other (Patient weak and contacted) Eyes: non-icteric ENT: oropharynx moist Neck: supple, no lymphadenopathy Effort: normal Ascultation: Bilateral: diminished breath sounds Cardiovascular: regular rate and rhythm Gastrointestinal: normoactive bowel sounds, soft, non-tender Integumentary: normal Extremities: no cyanosis, no edema, other (Patient has pressure ulcer at multiple areas, including sacral area.) Neurologic: non-focal exam, pupils equal and round Psychiatric: other (unable to assess ) CBC and BMP: 11/06/18 05:42 11/06/18 05:42 ABG, PT/INR, D-dimer: ABG POC ABG pH 7.494 (7.35-7.45) H 11/01/18 15:27 POC ABG pCO2 34.5 (35-45) L 11/01/18 15:27 POC ABG pO2 139 (80-105) H 11/01/18 15:27 POC ABG HCO3 26.5 (22-26 mml/L) 11/01/18 15:27 POC ABG Total CO2 28 (23-27mmol/L) 11/01/18 15:27 POC ABG O2 Sat 99 11/01/18 15:27 PT/INR, D-dimer PT 16.3 Sec. (12.2-14.9) H 11/01/18 14:50 INR 1.35 (0.87-1.13) H 11/01/18 14:50 Abnormal lab findings: Abnormal Labs 11/01/18 11/01/18 11/01/18 14:50 14:50 14:50 WBC 15.3 H RBC 2.76 L Hgb 7.9 L Hct 23.5 L MCH MCHC RDW 18.3 H Plt Count 567 H Lymph % (Auto) 6.5 L [place] % (Auto) 8.5 H Eos % (Auto) Lymph # 1.0 L [place] # 1.3 H Eos # Seg Neutrophils % 83.4 H Seg Neutrophils # 12.7 H PT 16.3 H INR 1.35 H POC ABG pH POC ABG pCO2 POC ABG pO2 VBG pH Sodium Chloride Carbon Dioxide BUN 49 H Glucose 132 H AST 90 H ALT 77 H Alkaline Phosphatase 350 H NT-Pro-B Natriuret Pep Albumin 1.6 L Urine WBC (Auto) Crossmatch 11/01/18 11/01/18 11/01/18 14:50 14:50 15:27 WBC RBC Hgb Hct MCH MCHC RDW Plt Count Lymph % (Auto) [place] % (Auto) Eos % (Auto) Lymph # [place] # Eos # Seg Neutrophils % Seg Neutrophils # PT INR POC ABG pH 7.494 H POC ABG pCO2 34.5 L POC ABG pO2 139 H VBG pH 7.499 H Sodium Chloride Carbon Dioxide BUN Glucose AST ALT Alkaline Phosphatase NT-Pro-B Natriuret Pep 6776 H Albumin Urine WBC (Auto) Crossmatch 11/01/18 11/03/18 11/03/18 15:57 03:41 03:41 WBC 12.8 H RBC 2.55 L Hgb 6.9 L Hct 22.2 L MCH 27 L MCHC 31 L RDW 17.9 H Plt Count 519 H Lymph % (Auto) [place] % (Auto) Eos % (Auto) Lymph # [place] # Eos # Seg Neutrophils % Seg Neutrophils # PT INR POC ABG pH POC ABG pCO2 POC ABG pO2 VBG pH Sodium 147 H Chloride 110.3 H Carbon Dioxide BUN 55 H Glucose AST ALT Alkaline Phosphatase NT-Pro-B Natriuret Pep Albumin Urine WBC (Auto) > 182.0 H Crossmatch 11/03/18 11/04/18 11/04/18 12:51 05:12 05:12 WBC 11.5 H RBC 2.94 L Hgb 8.3 L Hct 25.3 L MCH MCHC RDW 17.3 H Plt Count 514 H Lymph % (Auto) [place] % (Auto) Eos % (Auto) Lymph # [place] # Eos # Seg Neutrophils % Seg Neutrophils # PT INR POC ABG pH POC ABG pCO2 POC ABG pO2 VBG pH Sodium 147 H Chloride 112.4 H Carbon Dioxide BUN 52 H Glucose AST ALT Alkaline Phosphatase NT-Pro-B Natriuret Pep Albumin Urine WBC (Auto) Crossmatch See Detail 11/05/18 11/05/18 11/06/18 04:50 04:50 05:42 WBC RBC 3.03 L 2.80 L Hgb 8.7 L 7.9 L Hct 26.6 L 24.7 L MCH MCHC RDW 17.1 H 17.0 H Plt Count 502 H 478 H Lymph % (Auto) 10.4 L [place] % (Auto) 8.6 H Eos % (Auto) 4.7 H Lymph # 1.0 L [place] # Eos # 0.5 H Seg Neutrophils % 75.6 H Seg Neutrophils # PT INR POC ABG pH POC ABG pCO2 POC ABG pO2 VBG pH Sodium 149 H Chloride 114.4 H Carbon Dioxide 21 L BUN 50 H Glucose 108 H AST ALT Alkaline Phosphatase NT-Pro-B Natriuret Pep Albumin Urine WBC (Auto) Crossmatch 11/06/18 05:42 WBC RBC Hgb Hct MCH MCHC RDW Plt Count Lymph % (Auto) [place] % (Auto) Eos % (Auto) Lymph # [place] # Eos # Seg Neutrophils % Seg Neutrophils # PT INR POC ABG pH POC ABG pCO2 POC ABG pO2 VBG pH Sodium 149 H Chloride 113.4 H Carbon Dioxide BUN 50 H Glucose 121 H AST ALT Alkaline Phosphatase NT-Pro-B Natriuret Pep Albumin Urine WBC (Auto) Crossmatch
[2018-11-06] MEDS: NACL 0.9% IV SCH ×2 (21:26→22:27)
[2018-11-06] MEDS: DAPTOMYCIN IV SCH ×2 (21:26→22:27)
[2018-11-07] MEDS: MORPHINE IV PRN ×2 (00:25→09:55)
[2018-11-07] MEDS: TYLENOL FEEDTUBE PRN (06:20)
[2018-11-07] MEDS: DUONEB *Not for PRN Use IH SCH ×3 (08:17→22:10)
--- NOTE | 2018-11-07 10:16 | Progress Note ---
Assessment and Plan Cultures: Blood culture 10/01/2018 MRSA 2 of 4. Blood culture 10/03/2018 MRSA Blood culture 10/08/2018 no growth Blood culture 10/11/2018 no growth Blood culture 10/21/2018 no growth Blood culture 11/01/2018 Staph haemolyticus 2 of 4 bottles, resistent to methicillin and MRSA 1 of 4 bottles Blood culture 11/04/2018 no growth Assessment: 67 y/o male with history of HTN, CVA, Obstructive Uropathy, Contracture, Multiple Decubitus Ulcers, [place], DM, OA, Seizure Disorder, COPD, Dementia, Debility, BPH, well known to ID due to multiple admissions secondary to ducubitus ulcers infections and recurrent bacteremia, last time admitted on 10/02/2018 found with MRSA bacteremia jessica from decubitus ulcers mainly active large left trochanteric with bone exposure and sacral with bone exposure. Patient's infection was deemed incurable and hospice was recommended. Patient was discharged back to [place] on IV vancomycin 1 gm every 48 hours for total 6 weeks ending 11/12/2018 via neck tunneled cath. Patient was readmitted on due to AMS, worsening SOB. Patient is lethargic and unable to provide history. At the [facility] he was found to have respiratory distress upon evaluation the morning of admission,pulse oximetry in the 80's: 1) Severe Sepsis: improving: Etiology most likely Recurrent Staph bacteremia +/- CAUTI. 2) Staph haemolyticus and MRSA bacteremia with recent MRSA bacteremia: Blood culture 11/01/2018 Staph haemolyticus 2 of 4 bottles and MRSA 1 of 4. Source likely multiple decubitus ulcers or Neck IV central line. Patient is failing vancomycin. He has a tunneled neck cath. Recent TTE negative for vegetations. On daptomycin. 3) Recent septic shock due to polymicrobial bacteremia ESBL and carbapenem resistant E coli, MDR Proteus, Strep and E faecalis on 07/29/2018 probably from multiple infected decubitus ulcers and less likely UTI. Repeat blood cultures 07/31/2018 showed same MDR E coli 1 of 4 bottles then 08/06/2018 blood cultures showed no growth. Patient was treated with Vabomere for 14 days. 4) Multiple infected decubitus ulcers: with active large left trochanteric with bone exposure and sacral with bone exposure. His prognosis has been poor and hospice has been recommended several times in the past but family has declined. declined. His wounds are not curable considering his contractures, bed bound status and poor nutritional status. There was also suspicion of septic arthritis of left hip from decubitus ulcer. 5) Recurrent UTI: patient's bright was removed home 2 weeks ago, a new bright placed here 6) Acute encephalopathy: multifactorial. 7) Acute resp failure: was on BIPAP now NC O2. EF 30-35% pericaldial and pleural effusion. Recommendations: - remove neck central line - pending - extensive discussion with daughter done on 11/04 regarding futility of antibiotic therapy as his wound infection is incurable. Patient is at risk for recurrent bacteremia, antibiotics side effects including C diff, nephrotoxicity and others. Wound is not healing due to MDR infection, severe contractures, malnutrition and multiple comorbilities. Daughter reported she spoke with patient about his wishes and he said to continue all interventions. She wants to honor his wishes but she understands he is sick. Refused hospice. - continue daptomycin IV D5 - always contact isolation - [place] to place a new PICC line - at discharge will do daptomycin 400 mg IV q day for 6 weeks until 12/16/2018 -order placed with case management -Poor prognosis - agree with Dr. Man regarding Ethical committee consult Dr. Wynne d/w [facility] M: [phone] O:[phone] Subjective Date of service: 11/07/18 Principal diagnosis: bacteremia Interval history: Patient seen and examined. Asleep, easy to arouse. Following simple commands. Objective - Exam Narrative Exam: General appearance: Somnolent Eyes: anicteric sclerae, moist conjunctivae; no lid-lag; PERRLA HENT: Atraumatic; oropharynx limited Neck: Trachea midline; supple, no thyromegaly or lymphadenopathy Lungs: CTA CV: RRR no murmur Abdomen: Soft, non-tender Extremities: marked legs contractions, multiple decubitus ulcers covered with dressings Skin: multiple skin tears Psych: no agitated. Neuro: somnolent - Constitutional Vitals: Vital Signs Temp Pulse Resp BP Pulse Ox 98.0 F 121 H 20 137/78 94 11/07/18 08:01 11/07/18 08:01 11/07/18 08:01 11/07/18 08:01 11/07/18 08:01 Temperature -Last 24 Hours Temperature 98.0 F Temperature 99.9 F Temperature 99.2 F Temperature 99.2 F Temperature 97.9 F Temperature 98.9 F Temperature 98.9 F - Labs CBC & Chem 7: 11/06/18 05:42 11/06/18 05:42
[2018-11-07] MEDS: VITAMIN C FEEDTUBE SCH ×2 (10:45→22:00)
[2018-11-07] MEDS: KEPPRA FEEDTUBE SCH ×2 (10:45→22:00)
[2018-11-07] MEDS: LOVENOX SUB-Q SCH (10:45)
[2018-11-07] MEDS: Centrum Liq FEEDTUBE SCH (12:30)
[2018-11-07] MEDS: ZINC SULFATE PO SCH (12:35)
--- NOTE | 2018-11-07 13:32 | Consultation ---
History of Present Illness Consult date: 11/07/18 - History of present illness History of present illness: Unfortunate 67 yo male with multiple chronic pressure ulcers. Pt comes to the [facility] about q2-3 weeks. Past History Past Medical History: acute [place], arthritis, COPD, diabetes, seizures, other (Dementia) Past Surgical History: Other (G Tube, Debridement of Sacral wound) Social history: . denies: smoking, alcohol abuse, prescription drug abuse Family history: diabetes, hypertension Medications and Allergies Allergies Allergy/AdvReac Type Severity Reaction Status Date / Time lisinopril Allergy Unknown Verified 10/01/18 15:17 tramadol Allergy Unknown Verified 07/29/18 18:39 Home Medications Medication Instructions Recorded Confirmed Last Taken Type Multivit-Min/Iron Fum/Folic AC 1 each PO DAILY 03/24/18 11/01/18 Unknown History [Hnhgb-Dxibdko-Qeybexuf Tablet] Acetaminophen 650 mg NGTUBE Q6H PRN 07/30/18 11/01/18 Unknown History Ipratropium/Albuterol Sulfate 1 ampul IH BID 07/30/18 11/01/18 Unknown History [DUONEB *Not for PRN Use*] Tamsulosin [Flomax] 0.4 mg PO QDAY 07/30/18 11/01/18 Unknown History Vit C/Ascorbate Calcium,Sodium 500 mg NGTUBE BID 07/30/18 11/01/18 Unknown History [Vitamin C 500 mg/15 ml Liquid] Zinc Sulfate 220 mg NGTUBE QDAY 07/30/18 11/01/18 Unknown History levETIRAcetam [Keppra INJ] 500 mg PO Q12H 07/30/18 11/01/18 Unknown History Phosphorus #1 [K-Phos Neutral] 250 mg PO QID #30 tablet 08/23/18 11/01/18 Unk nown Rx hydroCHLOROthiazide [HCTZ] 12.5 mg PO QDAY #30 tablet 08/23/18 11/01/18 Unknown Rx AtorvaSTATin [Lipitor] 40 mg NGTUBE QHS #30 tablet 10/21/18 11/01/18 Unknown Rx cloNIDine-TTS PATCH [Catapres-Tts 0.2 mg TD Tu #7 patch 10/21/18 11/01/18 Unknown Rx 0.2mg Patch] Insulin Aspart [Novolog] 0 unit SQ AC 11/01/18 11/01/18 Unknown History Vancomycin/Water For Inj (Peg) 1 gm IV Q48H 11/01/18 11/01/18 Unknown History [Vancomycin 1 Gram/200 ml Bag] Active Meds: Active Medications Acetaminophen (Tylenol) 650 mg FEEDTUBE Q4H PRN PRN Reason: Pain, Moderate (4-6) Last Admin: 11/07/18 06:20 Dose: 650 mg Documented by: Albuterol (Proventil) 2.5 mg IH Q3HRT PRN PRN Reason: Shortness Of Breath Albuterol/Ipratropium (Duoneb *Not For Prn Use*) 1 ampul IH BID [facility] [place] Last Admin: 11/07/18 08:28 Dose: Not Given Documented by: Lipase/Protease/Amylase (Nickie Moore 10,500 Unit) 1 each FEEDTUBE PRN PRN PRN Reason: For Clogged Feeding Tube Ascorbic Acid (Vitamin C) 500 mg FEEDTUBE BID [facility] [place] Last Admin: 11/06/18 22:25 Dose: 500 mg Documented by: Atorvastatin Calcium (Lipitor) 40 mg FEEDTUBE QHS [facility] Last Admin: 11/06/18 22:25 Dose: 40 mg Documented by: Clonidine HCl (Catapres-Tts Patch) 0.2 mg TD Tu [facility] Last Admin: 11/05/18 18:49 Dose: 0.2 mg Documented by: Enoxaparin Sodium (Lovenox) 40 mg SUB-Q QDAY@1000 NORA Last Admin: 11/06/18 10:28 Dose: 40 mg Documented by: Daptomycin 400 mg/ Sodium (Chloride) 100 mls @ 200 mls/hr IV Q24H [facility] [place]; Protocol Last Admin: 11/06/18 22:27 Dose: 200 mls/hr Documented by: Levetiracetam (Keppra) 500 mg FEEDTUBE BID [facility] Last Admin: 11/06/18 22:25 Dose: 500 mg Documented by: Morphine Sulfate (Morphine) 2 mg IV Q4H PRN PRN Reason: Pain, Moderate (4-6) Last Admin: 11/07/18 09:55 Dose: 2 mg Documented by: Multivitamins (Centrum Liq) 5 ml FEEDTUBE QDAY [facility] [place] Last Admin: 11/06/18 10:28 Dose: 5 ml Documented by: Simple Syrup (Simple Syrup) 15 ml FEEDTUBE PRN PRN PRN Reason: Hypoglycemia Simple Syrup (Simple Syrup) 30 ml FEEDTUBE PRN PRN PRN Reason: Hypoglycemia Sodium Bicarbonate (Sodium Bicarbonate) 325 mg FEEDTUBE PRN PRN PRN Reason: For Clogged Feeding Tube Sodium Chloride (Sodium Chloride Flush Syringe 10 Ml) 10 ml IV BID [facility] Last Admin: 11/06/18 22:25 Dose: 10 ml Documented by: Sodium Chloride (Sodium Chloride Flush Syringe 10 Ml) 10 ml IV PRN PRN PRN Reason: LINE FLUSH Zinc Sulfate (Zinc Sulfate) 220 mg PO DAILY [facility] Last Admin: 11/06/18 10:33 Dose: 220 mg Documented by: Review of Systems ROS unobtainable: due to mental status Exam Vital Signs Pulse Ox 100 11/01/18 14:26 - General physical appearance Positive: chronically ill - Eyes Positive: PERRL, normal occular movement - ENT Positive: normal pinna, normal nares, normal mucosa, no hearing loss, no congest ion - Neck Positive: no masses, no bruits, trachea midline, no venous distension - Respiratory Positive: normal expansion, normal respiratory effort, clear to auscultation - Cardiovascular Rhythm: regular Heart Sounds: Present: S1 & S2. Absent: rub, click - Extremities Extremities: abnormal (See integumentary.) - Breasts Breasts: deferred - Abdomen Abdomen: Present: soft, bowel sounds normal. Absent: tender, distended Hernia: none - Genitourinary Male Genitourinary: deferred - Integumentary other (Multiple pressure ulcers (Please see my operative note for a detailed de scription.)) - Neurologic Neurologic: other (Pt is oriented to person only.) Results - Labs 11/06/18 05:42 11/06/18 05:42 Assessment and Plan 1) Please see my operative note for documentation of his multiple pressure ulcers. Pt would be best served by discontinuation of his tube feedings and then allowing nature to take it's course. I have discussed this with the pt's daughter and she will not consent to stopping his tube feedings. She will also not consent to bilateral AKA's which I have also recommended. She has been present for prior pressure ulcer debridements and is aware that these are painful for the pt. 2) Orthopedic consultation should be considered for possible left hip disarticulation as his left hip joint is crumbling and has profuse purulent drainage. However, the pt probably would not tolerate this major of a procedure. 3) I also discussed this pt's situation with the case therapist. An Ethics committee evaluation should be considered. 4) I will debride the pt's wounds at the bedside today to keep them clean. Please refer to my operative note of today. 5) Wound Care nurses will also see the pt. - Patient Problems (1) Decubitus ulcer Current Visit: No Status: Acute
[2018-11-07] MEDS: SODIUM CHLORIDE FLUSH SYRINGE 10 ML IV SCH ×2 (14:17→23:52)
--- NOTE | 2018-11-07 14:37 | Procedure Note ---
Date of procedure: 11/07/18 Pre-op diagnosis: Multiple stage 3-4 pressure ulcerations (See below.) Post-op diagnosis: same Procedure: Debridement of multiple pressure ulcerations. Description of procedure: Pt was first placed right side down. The stage 4 left hip pressure ulceration was surgically excisionally debrided of necrotic bone with a currette. Bleeding was minimal and was controlled with pressure. Final wound measurements were 4.5 X 4.5 X 7.5 cm. The stage 3 sacral, right ankle and left heel pressure ulcers were then surgically, excisionally debrided of necrotic SQ fat with a currette. Bleeding was minimal and was controlled with pressure. Final wound measurements were as follows: Sacrum 11 X 14.3 X 1.2; Right ankle 3 X 3 X 0.4 cm; Left heel 2 X 4 X 1 cm Pt was repositioned with his left side down. The stage 4 right heel, left lateral heel and right lateral leg ulcerations were surgically, excisionally debrided of necrotic SQ tissue, muscle and fascia with forceps and scissors. Bleeding was minimal and was controlled with pressure. Final wound measurements were as follows: Right heel 3 X 3 X 1 cm; Left lateral ankle 2 X 3 X 0.5 cm; Right lateral leg 7.5 X 1.5 X 1 cm; Pt tolerated the procedure well. Wounds were dressed by the Wound Care nurses Anesthesia: other (IV morphine) Surgeon: FABRICIO WASHINGTON Estimated blood loss: minimal Pathology: none Specimen disposition: discarded Condition: stable Disposition: no change
--- NOTE | 2018-11-07 17:05 | Progress Note ---
Assessment and Plan Assessment and plan: 67 YO Male [facility] Resident as [facility] with HTN, CVA, Obstructive Uropathy, Diastolic CHF, Contracture, Sacral Decubitus Ulcers, [place], DM, OA, Seizure Disorder, COPD, Dementia, BPH presents to ED for evaluation. Pt is stuporous and unable to provide history. Pt history taken from ED Staff, EMS, and SNF Staff. As per staff, the patient was found to have respiratory distress upon evaluation this morning. Pt found to have pulse oximetry in the 80's. EMS notified and patient subsequently transported to [facility] for further care and evaluation. Pt seen and evaluated in ED and found to have UTI, Sepsis, Encephalopathy as well as Acute Hypoxemic Respiratory Failure. Pt initiated on NIPPV in ED with improvement in symptoms. Pt admitted to IMCU and initiated on Sepsis protocol. Prior admission on 10/01/18 reviewed. Extensive discussion with family about patients poor prognosis surgery consulted for possible debridment ID following, Pulmonary status improved Continue isolation care Chaudhary placed by Urology please do not remove Sepsis Continue IMCU care, place on isolation, ID consult noted, patient is on IV daptomycin blood cultures with gram positive Multiple hx of MRSA, Multi organ Monitor uop q shift. ID recumbent because Synthroid Respiratory failure Supplemental oxygen, nebulizer therapy,pulse oximetry, Chest X ray, NIPPV UNABLE TO GET v/q scan Pulmonary following the patient Anemia of chronic disease Transfuse one unit PRBC hemoglobin is stable Seizure Continue current therapy, seizure precautions. UTI (urinary tract infection) IV antibiotic therapy, CBC, CMP, Urinalysis. BPH Continue Chaudhary catherter Dementia IVF resuscitation therapy, supportive care, treat sepsis. sacral pressure ulcer -infected. POA WOUND CARE CONSULT. CONTINUE ABX. Debridement done by Dr Man Amputation recommended and the daughter refused The wound involved the bone and orthopedics consulted. DVT prophylaxis Current Visit: Yes Status: Acute Plan to address problem: SCD to BLE while in bed, Prophylactic lovenox POOR PROGNOSIS Disposition; will DC back to SNF after evaluated by Orthopedics. History Interval history: Patient was seen and evaluated this morning, patient states that he doesn't have pain. Hospitalist Physical - Physical exam Narrative exam: Not in cardiopulmonary distress. The patient appeared well nourished and normally developed. Vital signs as documented. Head exam is unremarkable. No scleral icterus . Neck is without jugular venous distension, thyromegaly, or carotid bruits. Lungs are clear to auscultation. Cardiac exam reveals regular rate and Rhythm. First and second heart sounds normal. No murmurs, rubs or gallops. Abdominal exam reveals normal bowel sounds, no masses, no organomegaly and no aortic enlargement. Extremities contracted extremities. [employer]: Alert and oriented 3. No focal weakness. Skin; multiple decubitus ulcers, including the sacrum and the heel. - Constitutional Vitals: Temp Pulse Resp BP Pulse Ox 98.6 F 96 H 18 125/72 100 11/07/18 16:23 11/07/18 16:23 11/07/18 16:23 11/07/18 16:23 11/07/18 16:23 General appearance: Present: mild distress Results - Labs CBC & Chem 7: 11/06/18 05:42 11/06/18 05:42 Labs: Laboratory Last Values WBC 9.6 K/mm3 (4.5-11.0) 11/06/18 05:42 RBC 2.80 M/mm3 (3.65-5.03) L 11/06/18 05:42 Hgb 7.9 gm/dl (11.8-15.2) L 11/06/18 05:42 Hct 24.7 % (35.5-45.6) L 11/06/18 05:42 MCV 88 fl (84-94) 11/06/18 05:42 MCH 28 pg (28-32) 11/06/18 05:42 MCHC 32 % (32-34) 11/06/18 05:42 RDW 17.0 % (13.2-15.2) H 11/06/18 05:42 Plt Count 478 K/mm3 (140-440) H 11/06/18 05:42 Lymph % (Auto) 10.4 % (13.4-35.0) L 11/06/18 05:42 [place] % (Auto) 8.6 % (0.0-7.3) H 11/06/18 05:42 Eos % (Auto) 4.7 % (0.0-4.3) H 11/06/18 05:42 Baso % (Auto) 0.7 % (0.0-1.8) 11/06/18 05:42 Lymph # 1.0 K/mm3 (1.2-5.4) L 11/06/18 05:42 [place] # 0.8 K/mm3 (0.0-0.8) 11/06/18 05:42 Eos # 0.5 K/mm3 (0.0-0.4) H 11/06/18 05:42 Baso # 0.1 K/mm3 (0.0-0.1) 11/06/18 05:42 Seg Neutrophils % 75.6 % (40.0-70.0) H 11/06/18 05:42 Seg Neutrophils # 7.3 K/mm3 (1.8-7.7) 11/06/18 05:42 PT 16.3 Sec. (12.2-14.9) H 11/01/18 14:50 INR 1.35 (0.87-1.13) H 11/01/18 14:50 POC ABG pH 7.494 (7.35-7.45) H 11/01/18 15:27 POC ABG pCO2 34.5 (35-45) L 11/01/18 15:27 POC ABG pO2 139 (80-105) H 11/01/18 15:27 POC ABG HCO3 26.5 (22-26 mml/L) 11/01/18 15:27 POC ABG Total CO2 28 (23-27mmol/L) 11/01/18 15:27 POC ABG O2 Sat 99 11/01/18 15:27 POC ABG Base Excess 3 ((-2) - (+3)mmol/L) 11/01/18 15:27 VBG pH 7.499 (7.320-7.420) H 11/01/18 14:50 50 % 11/01/18 15:27 Sodium 149 mmol/L (137-145) H 11/06/18 05:42 Potassium 4.0 mmol/L (3.6-5.0) 11/06/18 05:42 Chloride 113.4 mmol/L (98-107) H 11/06/18 05:42 Carbon Dioxide 23 mmol/L (22-30) 11/06/18 05:42 17 mmol/L 11/06/18 05:42 BUN 50 mg/dL (9-20) H 11/06/18 05:42 1.1 mg/dL (0.8-1.5) 11/06/18 05:42 Estimated GFR > 60 ml/min 11/06/18 05:42 45 % 11/06/18 05:42 Glucose 121 mg/dL (75-100) H 11/06/18 05:42 Lactic Acid 1.80 mmol/L (0.7-2.0) 11/01/18 14:50 Calcium 8.6 mg/dL (8.4-10.2) 11/06/18 05:42 0.30 mg/dL (0.1-1.2) 11/01/18 14:50 AST 90 units/L (5-40) H 11/01/18 14:50 ALT 77 units/L (7-56) H 11/01/18 14:50 350 units/L (35-129) H 11/01/18 14:50 NT-Pro-B Natriuret Pep 6776 pg/mL (0-900) H 11/01/18 14:50 7.9 g/dL (6.3-8.2) 11/01/18 14:50 1.6 g/dL (3.9-5) L 11/01/18 14:50 0.3 % 11/01/18 14:50 Yellow (Yellow) 11/01/18 15:57 Turbid (Clear) 11/01/18 15:57 6.0 (5.0-7.0) 11/01/18 15:57 Ur Specific [place] 1.016 (1.003-1.030) 11/01/18 15:57 100 mg/dl mg/dL (Negative) 11/01/18 15:57 Neg mg/dL (Negative) 11/01/18 15:57 Neg mg/dL (Negative) 11/01/18 15:57 Neg (Negative) 11/01/18 15:57 Neg (Negative) 11/01/18 15:57 Neg (Negative) 11/01/18 15:57 < 2.0 mg/dL (<2.0) 11/01/18 15:57 Ur Leukocyte Esterase Mod (Negative) 11/01/18 15:57 > 182.0 /HPF (0.0-6.0) H 11/01/18 15:57 40.0 /HPF (0.0-6.0) 11/01/18 15:57 U Epithel Cells (Auto) 8.0 /HPF (0-13.0) 11/01/18 15:57 3+ /HPF 11/01/18 15:57 3+ /HPF 11/01/18 15:57 Random Vancomycin 13.9 ug/mL (0-40.0) 11/02/18 05:05 Blood Type O POSITIVE 11/03/18 12:51 Antibody Screen Negative 11/03/18 12:51 Crossmatch See Detail 11/03/18 12:51 Active Medications - Current Medications Current Medications: Generic Name Dose Route Start Last Admin Trade Name Freq PRN Reason Stop Dose Admin Acetaminophen 650 mg 11/01/18 17:38 11/07/18 06:20 Tylenol FEEDTUBE 650 mg Q4H PRN Administration Pain, Moderate (4-6) Albuterol 2.5 mg 11/01/18 17:15 Proventil IH Q3HRT PRN Shortness Of Breath Albuterol/Ipratropium 1 ampul 11/01/18 22:00 11/07/18 08:28 Duoneb *Not For Prn Use* IH Not Given BID [facility] Lipase/Protease/Amylase 1 each 11/03/18 17:12 Pancreaze 10,500 Unit FEEDTUBE PRN PRN For Clogged Feeding Tube Ascorbic Acid 500 mg 11/01/18 22:00 11/07/18 10:45 Vitamin C FEEDTUBE 500 mg BID NORA Administration Atorvastatin Calcium 40 mg 11/01/18 22:00 11/06/18 22:25 Lipitor FEEDTUBE 40 mg QHS NORA Administration Clonidine HCl 0.2 mg 11/05/18 17:18 11/05/18 18:49 Catapres-Tts Patch TD 0.2 mg Tu NORA Administration Enoxaparin Sodium 40 mg 11/02/18 10:00 11/07/18 10:45 Lovenox SUB-Q 40 mg QDAY@1000 NORA Administration Daptomycin 400 mg/ Sodium 100 mls @ 200 mls/hr 11/03/18 21:00 11/06/18 22:27 Chloride IV 200 mls/hr Q24H NORA Administration Protocol Levetiracetam 500 mg 11/01/18 22:00 11/07/18 10:45 Keppra FEEDTUBE 500 mg BID NORA Administration Morphine Sulfate 2 mg 11/01/18 17:15 11/07/18 09:55 Morphine IV 2 mg Q4H PRN Administration Pain, Moderate (4-6) Multivitamins 5 ml 11/02/18 10:00 11/07/18 12:30 Centrum Liq FEEDTUBE 5 ml QDAY NORA Administration Simple Syrup 15 ml 11/03/18 17:12 Simple Syrup FEEDTUBE PRN PRN Hypoglycemia Simple Syrup 30 ml 11/03/18 17:12 Simple Syrup FEEDTUBE PRN PRN Hypoglycemia Sodium Bicarbonate 325 mg 11/03/18 17:12 Sodium Bicarbonate FEEDTUBE PRN PRN For Clogged Feeding Tube Sodium Chloride 10 ml 11/01/18 22:00 11/07/18 14:17 Sodium Chloride Flush Syringe 10 Ml IV 10 ml BID NORA Administration Sodium Chloride 10 ml 11/01/18 17:15 Sodium Chloride Flush Syringe 10 Ml IV PRN PRN LINE FLUSH Zinc Sulfate 220 mg 11/02/18 10:00 11/07/18 12:35 Zinc Sulfate PO 220 mg DAILY NORA Administration Nutrition/Malnutrition Assess - Dietary Evaluation Nutrition/Malnutrition Findings: Nutrition Notes Start: 11/04/18 16:00 Freq: Status: Active Protocol: Document 11/07/18 15:07 RM (Rec: 11/07/18 15:09 RM [id number]) Nutrition Notes Initial or Follow up Reassessment Current Diagnosis COPD,Diabetes,Sepsis, Hypertension,Heart Failure, Stroke Other Pertinent Diagnosis Sacral PUs, UTI, Dementia Current Diet Glucerna 1.2 at 60 ml/hr Labs/Tests Reviewed Pertinent Medications Reviewed Height 5 ft 8 in Weight 61.4 kg [place] Body Weight (kg) 70.00 BMI 20.5 Subjective/Other Information Observed Glucerna infusing at goal rate. Per nurse pt is tolerating TF. Percent of energy/protein needs met: 100%/100% Burn Absent Trauma Absent #1 Nutrition Diagnosis Inadequate oral intake Diagnosis Progress(for reassessment Continues documentation) Is patient on ventilator? No Is Patient Ambulatory and/or Out of Bed No REE-([facility]-confined to bed) 8713.510 Calculation Used for Recommendations [facility] Additional Notes Protein Needs: 76-95g (1.2-1. 5g/kg) Fluid Needs: 1 ml/kcal Nutrition Intervention Nutrition Support: Glucerna at 60 ml/hr. Water flush of 100 mls q 4 hrs . Kcal 1,728 Protein (gm) 86 Fluid (mL) 1,159 Goal #1 TF tolerance Goal #2 Continue meet at least 75% of calorie and protein needs via TF Anticipated Discharge Needs: Unable to determine at this time Follow-Up By: 11/14/18 Additional Comments Follow for TF tolerance
--- NOTE | 2018-11-07 17:33 | Progress Note ---
Assessment and Plan Severe Sepsis Acute Hypoxemic Respiratory failure Anemia of chronic disease Seizure UTI (urinary tract infection) BPH Dementia sacral pressure ulcer -infected. POA Acute metabolic encephalopathy - continue supplemental oxygen as needed to keep O2 sat's > 90% - continue bronchodilators with pulmonary hygiene per RT - continue AED's for seizure control -optimize nutritional support to optimize wound healing -Discontinue central venous access, place PICC( OK per ID) - fall precautions - aspiration precautions - complete antibiotics per ID recommendations - continue wound care per WCT - continue bright catheter re: Obstructive Uropathy - VTE prophylaxis - continue mobility protocol, off loading for pressure ulcer prophylaxis - continue other care per attending / other consultants Subjective Date of service: 11/07/18 Principal diagnosis: bacteremia Interval history: Patient is seen today for: Severe Sepsis; Acute Hypoxemic Respiratory failure; Anemia of chronic disease; Seizure; UTI (urinary tract infection); BPH; Dementia; sacral pressure ulcer -infected. POA Seen and examined at bedside; 24-hour events reviewed; nursing and respiratory care staff consulted; no adverse overnight events reported to me; resting peacefully in bed; No N/V/F/C; s/p debridment of multile pressure ulcers; Vitals, labs, medications, chart reviewed. On 3L NC, comfortable, has RIJ CVC Objective Vital Signs - 12hr 11/07/18 11/07/18 11/07/18 06:20 07:20 07:58 Temperature 98.0 F Pulse Rate 119 H Pulse Rate [ From Monitor] Respiratory 24 24 20 Rate Respiratory Rate [ Generalized] Blood Pressure 137/78 Blood Pressure [Left] O2 Sat by Pulse 92 Oximetry 11/07/18 11/07/18 11/07/18 08:00 08:01 10:00 Temperature 98.0 F 98.0 F Pulse Rate 121 H 101 H Pulse Rate [ 101 H From Monitor] Respiratory 20 20 22 Rate Respiratory 26 H Rate [ Generalized] Blood Pressure Blood Pressure 137/78 [Left] O2 Sat by Pulse 94 98 Oximetry 11/07/18 11/07/18 13:01 16:23 Temperature 97.9 F 98.6 F Pulse Rate 101 H 96 H Pulse Rate [ From Monitor] Respiratory 18 18 Rate Respiratory Rate [ Generalized] Blood Pressure 131/73 125/72 Blood Pressure [Left] O2 Sat by Pulse 99 100 Oximetry Constitutional: no acute distress, alert, other (Patient weak and contracted) Eyes: non-icteric ENT: oropharynx moist Neck: no lymphadenopathy, no JVD Effort: normal Ascultation: Bilateral: diminished breath sounds Cardiovascular: regular rate and rhythm Gastrointestinal: normoactive bowel sounds, soft, non-tender, other Integumentary: normal Extremities: no cyanosis, no edema, other (Patient has pressure ulcer at multiple areas, including sacral area.) Neurologic: pupils equal and round CBC and BMP: 11/17/18 08:02 11/17/18 08:02 ABG, PT/INR, D-dimer: ABG POC ABG pH 7.494 (7.35-7.45) H 11/01/18 15:27 POC ABG pCO2 34.5 (35-45) L 11/01/18 15:27 POC ABG pO2 139 (80-105) H 11/01/18 15:27 POC ABG HCO3 26.5 (22-26 mml/L) 11/01/18 15:27 POC ABG Total CO2 28 (23-27mmol/L) 11/01/18 15:27 POC ABG O2 Sat 99 11/01/18 15:27 PT/INR, D-dimer PT 16.3 Sec. (12.2-14.9) H 11/01/18 14:50 INR 1.35 (0.87-1.13) H 11/01/18 14:50 Abnormal lab findings: Abnormal Labs 11/01/18 11/01/18 11/01/18 14:50 14:50 14:50 WBC 15.3 H RBC 2.76 L Hgb 7.9 L Hct 23.5 L MCH MCHC RDW 18.3 H Plt Count 567 H Lymph % (Auto) 6.5 L [place] % (Auto) 8.5 H Eos % (Auto) Lymph # 1.0 L [place] # 1.3 H Eos # Seg Neutrophils % 83.4 H Seg Neutrophils # 12.7 H PT 16.3 H INR 1.35 H POC ABG pH POC ABG pCO2 POC ABG pO2 VBG pH Sodium Chloride Carbon Dioxide BUN 49 H Glucose 132 H AST 90 H ALT 77 H Alkaline Phosphatase 350 H NT-Pro-B Natriuret Pep Albumin 1.6 L Urine WBC (Auto) Crossmatch 11/01/18 11/01/18 11/01/18 14:50 14:50 15:27 WBC RBC Hgb Hct MCH MCHC RDW Plt Count Lymph % (Auto) [place] % (Auto) Eos % (Auto) Lymph # [place] # Eos # Seg Neutrophils % Seg Neutrophils # PT INR POC ABG pH 7.494 H POC ABG pCO2 34.5 L POC ABG pO2 139 H VBG pH 7.499 H Sodium Chloride Carbon Dioxide BUN Glucose AST ALT Alkaline Phosphatase NT-Pro-B Natriuret Pep 6776 H Albumin Urine WBC (Auto) Crossmatch 11/01/18 11/03/18 11/03/18 15:57 03:41 03:41 WBC 12.8 H RBC 2.55 L Hgb 6.9 L Hct 22.2 L MCH 27 L MCHC 31 L RDW 17.9 H Plt Count 519 H Lymph % (Auto) [place] % (Auto) Eos % (Auto) Lymph # [place] # Eos # Seg Neutrophils % Seg Neutrophils # PT INR POC ABG pH POC ABG pCO2 POC ABG pO2 VBG pH Sodium 147 H Chloride 110.3 H Carbon Dioxide BUN 55 H Glucose AST ALT Alkaline Phosphatase NT-Pro-B Natriuret Pep Albumin Urine WBC (Auto) > 182.0 H Crossmatch 11/03/18 11/04/18 11/04/18 12:51 05:12 05:12 WBC 11.5 H RBC 2.94 L Hgb 8.3 L Hct 25.3 L MCH MCHC RDW 17.3 H Plt Count 514 H Lymph % (Auto) [place] % (Auto) Eos % (Auto) Lymph # [place] # Eos # Seg Neutrophils % Seg Neutrophils # PT INR POC ABG pH POC ABG pCO2 POC ABG pO2 VBG pH Sodium 147 H Chloride 112.4 H Carbon Dioxide BUN 52 H Glucose AST ALT Alkaline Phosphatase NT-Pro-B Natriuret Pep Albumin Urine WBC (Auto) Crossmatch See Detail 11/05/18 11/05/18 11/06/18 04:50 04:50 05:42 WBC RBC 3.03 L 2.80 L Hgb 8.7 L 7.9 L Hct 26.6 L 24.7 L MCH MCHC RDW 17.1 H 17.0 H Plt Count 502 H 478 H Lymph % (Auto) 10.4 L [place] % (Auto) 8.6 H Eos % (Auto) 4.7 H Lymph # 1.0 L [place] # Eos # 0.5 H Seg Neutrophils % 75.6 H Seg Neutrophils # PT INR POC ABG pH POC ABG pCO2 POC ABG pO2 VBG pH Sodium 149 H Chloride 114.4 H Carbon Dioxide 21 L BUN 50 H Glucose 108 H AST ALT Alkaline Phosphatase NT-Pro-B Natriuret Pep Albumin Urine WBC (Auto) Crossmatch 11/06/18 05:42 WBC RBC Hgb Hct MCH MCHC RDW Plt Count Lymph % (Auto) [place] % (Auto) Eos % (Auto) Lymph # [place] # Eos # Seg Neutrophils % Seg Neutrophils # PT INR POC ABG pH POC ABG pCO2 POC ABG pO2 VBG pH Sodium 149 H Chloride 113.4 H Carbon Dioxide BUN 50 H Glucose 121 H AST ALT Alkaline Phosphatase NT-Pro-B Natriuret Pep Albumin Urine WBC (Auto) Crossmatch Allied health notes reviewed: nursing
[2018-11-07] MEDS: NACL 0.9% IV SCH (21:00)
[2018-11-07] MEDS: DAPTOMYCIN IV SCH (21:00)
[2018-11-08] MEDS: DUONEB *Not for PRN Use IH SCH ×3 (08:45→21:13)
--- NOTE | 2018-11-08 10:34 | Progress Note ---
Assessment and Plan Severe Sepsis Acute Hypoxemic Respiratory failure Anemia of chronic disease Seizure UTI (urinary tract infection) BPH Dementia sacral pressure ulcer -infected. POA Acute metabolic encephalopathy - continue supplemental oxygen as needed to keep O2 sat's > 90% - continue bronchodilators with pulmonary hygiene per RT - continue AED's for seizure control -optimize nutritional support to optimize wound healing -Discontinue central venous access, place PICC( OK per ID) - fall precautions - aspiration precautions - complete antibiotics per ID recommendations - continue wound care per WCT - continue bright catheter re: Obstructive Uropathy - VTE prophylaxis - continue mobility protocol, off loading for pressure ulcer prophylaxis - continue other care per attending / other consultants Subjective Date of service: 11/08/18 Principal diagnosis: bacteremia, sepsis, acute encephalaopthy, hpoxia Interval history: Patient is seen today for: Severe Sepsis; Acute Hypoxemic Respiratory failure; Anemia of chronic disease; Seizure; UTI (urinary tract infection); BPH; Dementia; sacral pressure ulcer -infected. POA Seen and examined at bedside; 24-hour events reviewed; nursing and respiratory care staff consulted; no adverse overnight events reported to me; resting peacefully in bed; No N/V/F/C; s/p debridment of multile pressure ulcers; Vitals, labs, medications, chart reviewed. On 3L NC, comfortable, has RIJ CVC Objective Vital Signs - 12hr 11/08/18 11/08/18 11/08/18 00:00 00:52 05:07 Temperature 98.7 F 98.7 F 97.5 F L Pulse Rate 95 H 96 H 92 H Pulse Rate [ Bilateral Throughout] Respiratory 20 18 18 Rate Respiratory Rate [Bilateral Throughout] Blood Pressure 134/70 139/72 Blood Pressure 134/70 [Left] O2 Sat by Pulse 97 100 93 Oximetry 11/08/18 11/08/18 11/08/18 05:44 08:06 08:45 Temperature 97.9 F Pulse Rate 95 H 100 H Pulse Rate [ 87 Bilateral Throughout] Respiratory 18 Rate Respiratory 18 Rate [Bilateral Throughout] Blood Pressure 145/78 Blood Pressure [Left] O2 Sat by Pulse 99 Oximetry 11/08/18 11/08/18 08:55 10:00 Temperature Pulse Rate Pulse Rate [ 89 Bilateral Throughout] Respiratory Rate Respiratory 18 Rate [Bilateral Throughout] Blood Pressure Blood Pressure [Left] O2 Sat by Pulse 100 Oximetry Constitutional: no acute distress, alert, other (Patient weak and contracted) Eyes: non-icteric ENT: oropharynx moist Neck: supple, no lymphadenopathy Effort: normal Ascultation: Bilateral: diminished breath sounds Cardiovascular: regular rate and rhythm Gastrointestinal: normoactive bowel sounds, soft, non-tender Integumentary: normal Extremities: no cyanosis, no edema, other (Patient has pressure ulcer at multiple areas, including sacral area.) Neurologic: pupils equal and round, other (awake, alert) CBC and BMP: 11/17/18 08:02 11/17/18 08:02 ABG, PT/INR, D-dimer: ABG POC ABG pH 7.494 (7.35-7.45) H 11/01/18 15:27 POC ABG pCO2 34.5 (35-45) L 11/01/18 15:27 POC ABG pO2 139 (80-105) H 11/01/18 15:27 POC ABG HCO3 26.5 (22-26 mml/L) 11/01/18 15:27 POC ABG Total CO2 28 (23-27mmol/L) 11/01/18 15:27 POC ABG O2 Sat 99 11/01/18 15:27 PT/INR, D-dimer PT 16.3 Sec. (12.2-14.9) H 11/01/18 14:50 INR 1.35 (0.87-1.13) H 11/01/18 14:50 Abnormal lab findings: Abnormal Labs 11/01/18 11/01/18 11/01/18 14:50 14:50 14:50 WBC 15.3 H RBC 2.76 L Hgb 7.9 L Hct 23.5 L MCH MCHC RDW 18.3 H Plt Count 567 H Lymph % (Auto) 6.5 L [place] % (Auto) 8.5 H Eos % (Auto) Lymph # 1.0 L [place] # 1.3 H Eos # Seg Neutrophils % 83.4 H Seg Neutrophils # 12.7 H PT 16.3 H INR 1.35 H POC ABG pH POC ABG pCO2 POC ABG pO2 VBG pH Sodium Chloride Carbon Dioxide BUN 49 H Glucose 132 H AST 90 H ALT 77 H Alkaline Phosphatase 350 H NT-Pro-B Natriuret Pep Albumin 1.6 L Urine WBC (Auto) Crossmatch 11/01/18 11/01/18 11/01/18 14:50 14:50 15:27 WBC RBC Hgb Hct MCH MCHC RDW Plt Count Lymph % (Auto) [place] % (Auto) Eos % (Auto) Lymph # [place] # Eos # Seg Neutrophils % Seg Neutrophils # PT INR POC ABG pH 7.494 H POC ABG pCO2 34.5 L POC ABG pO2 139 H VBG pH 7.499 H Sodium Chloride Carbon Dioxide BUN Glucose AST ALT Alkaline Phosphatase NT-Pro-B Natriuret Pep 6776 H Albumin Urine WBC (Auto) Crossmatch 11/01/18 11/03/18 11/03/18 15:57 03:41 03:41 WBC 12.8 H RBC 2.55 L Hgb 6.9 L Hct 22.2 L MCH 27 L MCHC 31 L RDW 17.9 H Plt Count 519 H Lymph % (Auto) [place] % (Auto) Eos % (Auto) Lymph # [place] # Eos # Seg Neutrophils % Seg Neutrophils # PT INR POC ABG pH POC ABG pCO2 POC ABG pO2 VBG pH Sodium 147 H Chloride 110.3 H Carbon Dioxide BUN 55 H Glucose AST ALT Alkaline Phosphatase NT-Pro-B Natriuret Pep Albumin Urine WBC (Auto) > 182.0 H Crossmatch 11/03/18 11/04/18 11/04/18 12:51 05:12 05:12 WBC 11.5 H RBC 2.94 L Hgb 8.3 L Hct 25.3 L MCH MCHC RDW 17.3 H Plt Count 514 H Lymph % (Auto) [place] % (Auto) Eos % (Auto) Lymph # [place] # Eos # Seg Neutrophils % Seg Neutrophils # PT INR POC ABG pH POC ABG pCO2 POC ABG pO2 VBG pH Sodium 147 H Chloride 112.4 H Carbon Dioxide BUN 52 H Glucose AST ALT Alkaline Phosphatase NT-Pro-B Natriuret Pep Albumin Urine WBC (Auto) Crossmatch See Detail 11/05/18 11/05/18 11/06/18 04:50 04:50 05:42 WBC RBC 3.03 L 2.80 L Hgb 8.7 L 7.9 L Hct 26.6 L 24.7 L MCH MCHC RDW 17.1 H 17.0 H Plt Count 502 H 478 H Lymph % (Auto) 10.4 L [place] % (Auto) 8.6 H Eos % (Auto) 4.7 H Lymph # 1.0 L [place] # Eos # 0.5 H Seg Neutrophils % 75.6 H Seg Neutrophils # PT INR POC ABG pH POC ABG pCO2 POC ABG pO2 VBG pH Sodium 149 H Chloride 114.4 H Carbon Dioxide 21 L BUN 50 H Glucose 108 H AST ALT Alkaline Phosphatase NT-Pro-B Natriuret Pep Albumin Urine WBC (Auto) Crossmatch 11/06/18 05:42 WBC RBC Hgb Hct MCH MCHC RDW Plt Count Lymph % (Auto) [place] % (Auto) Eos % (Auto) Lymph # [place] # Eos # Seg Neutrophils % Seg Neutrophils # PT INR POC ABG pH POC ABG pCO2 POC ABG pO2 VBG pH Sodium 149 H Chloride 113.4 H Carbon Dioxide BUN 50 H Glucose 121 H AST ALT Alkaline Phosphatase NT-Pro-B Natriuret Pep Albumin Urine WBC (Auto) Crossmatch Allied health notes reviewed: nursing
--- NOTE | 2018-11-08 11:05 | Progress Note ---
Assessment and Plan Cultures: Blood culture 10/01/2018 MRSA 2 of 4. Blood culture 10/03/2018 MRSA Blood culture 10/08/2018 no growth Blood culture 10/11/2018 no growth Blood culture 10/21/2018 no growth Blood culture 11/01/2018 Staph haemolyticus 2 of 4 bottles, resistent to methicillin and MRSA 1 of 4 bottles Blood culture 11/04/2018 no growth today Assessment: 67 y/o male with history of HTN, CVA, Obstructive Uropathy, Contracture, Multiple Decubitus Ulcers, NE, DM, OA, Seizure Disorder, COPD, Dementia, Debility, BPH, well known to ID due to multiple admissions secondary to ducubitus ulcers infections and recurrent bacteremia, last time admitted on 10/02/2018 found with MRSA bacteremia jessica from decubitus ulcers mainly active large left trochanteric with bone exposure and sacral with bone exposure. Patient's infection was deemed incurable and hospice was recommended. Patient was discharged back to [facility] on IV vancomycin 1 gm every 48 hours for total 6 weeks ending 11/12/2018 via neck tunneled cath. Patient was readmitted on due to AMS, worsening SOB. Patient is lethargic and unable to provide history. At the [facility] he was found to have respiratory distress upon evaluation the morning of admission,pulse oximetry in the 80's: 1) Severe Sepsis: improving: Etiology most likely Recurrent Staph bacteremia +/- CAUTI. 2) Staph haemolyticus and MRSA bacteremia with recent MRSA bacteremia: Blood culture 11/01/2018 Staph haemolyticus 2 of 4 bottles and MRSA 1 of 4. Source likely multiple decubitus ulcers or Neck IV central line. Patient is failing vancomycin. He has a tunneled neck cath. Recent TTE negative for vegetations. On daptomycin. 3) Recent septic shock due to polymicrobial bacteremia ESBL and carbapenem resistant E coli, MDR Proteus, Strep and E faecalis on 07/29/2018 probably from multiple infected decubitus ulcers and less likely UTI. Repeat blood cultures 07/31/2018 showed same MDR E coli 1 of 4 bottles then 08/06/2018 blood cultures showed no growth. Patient was treated with Vabomere for 14 days. 4) Multiple infected decubitus ulcers: His prognosis has been poor and hospice has been recommended several times in the past but family has declined. declined. His wounds are not curable considering his contractures, bed bound status and poor nutritional status. There was also suspicion of septic arthritis of left hip from decubitus ulcer. S/p debridement of multiple pressure ulcerations on 11/07/2018- stage 4 left hip pressure ulceration was surgically excisionally debrided of necrotic bone, stage 3 sacral, right ankle and left heel pressure ulcers were then surgically, excisionally debrided of necrotic SQ fat, stage 4 right heel, left lateral heel and right lateral leg ulcerations were surgically, excisionally debrided of necrotic SQ tissue, muscle and fascia. Dr Man recommended bilateral AKA, patient and daughter refused. Dr Man recommended Orthopedic consultation for possible left hip disarticulation as his left hip joint is crumbling and has profuse purulent drainage. 5) Recurrent UTI: patient's bright was removed home 2 weeks ago, a new bright placed here 6) Acute encephalopathy: multifactorial. 7) Acute resp failure: was on BIPAP now NC O2. EF 30-35% pericaldial and pleural effusion. Recommendations: - agree with Ethics committee consultation as this infection is incurable failing multiple courses of IV antibiotics and evidence of worsening infection. Patient and daughter refusing amputation. - remove neck central line - pending - extensive discussion with daughter done on 11/04 regarding futility of antibiotic therapy as his wound infection is incurable. Patient is at risk for recurrent bacteremia, antibiotics side effects including C diff, nephrotoxicity and others. Wound is not healing due to MDR infection, severe contractures, malnutrition and multiple comorbilities. Daughter wants to honor his wishes but she understands he is sick. Refused hospice. - continue daptomycin IV for now D6 - always contact isolation - OK to place a new PICC line - at discharge will do daptomycin 400 mg IV q day for 6 weeks until 12/16/2018 Grim prognosis. Discussed with Dr Irving Will follow. Penny Bernardo MD Infectious Diseases [employer] [facility] M [phone] Subjective Date of service: 11/08/18 Principal diagnosis: bacteremia Interval history: Patient feels better, talking, no fever Objective - Exam Narrative Exam: General appearance: alert in NAD Eyes: anicteric sclerae, moist conjunctivae; no lid-lag; PERRLA HENT: Atraumatic; oropharynx limited Neck: Trachea midline; supple, no thyromegaly or lymphadenopathy Lungs: CTA CV: RRR no murmur Abdomen: Soft, non-tender Extremities: marked legs contractions, multiple decubitus ulcers covered with dressings Skin: multiple skin tears Psych: no agitated. Neuro: somnolent - Constitutional Vitals: Vital Signs Temp Pulse Resp BP Pulse Ox 97.9 F 89 18 145/78 100 11/08/18 08:06 11/08/18 08:55 11/08/18 08:55 11/08/18 08:06 11/08/18 10:00 Temperature -Last 24 Hours Temperature 97.9 F Temperature 97.5 F Temperature 98.7 F Temperature 98.7 F Temperature 98.1 F Temperature 98.6 F Temperature 97.9 F - Labs CBC & Chem 7: 11/06/18 05:42 11/06/18 05:42
--- NOTE | 2018-11-08 11:28 | Consultation ---
History of Present Illness Consult date: 11/08/18 Consult reason: other (NSVT) History of present illness: This is a 67 year old male who resides in a [facility] and has multiple medical problems with frequent hospitalizations. He has a cardiac history of nonischemic cardiomyopathy. In 2014, a cardiac cath documents no significant coronary artery disease but a decreased ejection fraction 20%. Patient also has a history of paroxysmal atrial fibrillation, previously considered not a jhonatan te for oral anticoagulation due to multiple co-morbidities and severe anemia. Patient was readmitted 11/01 with AMS, Sepsis, UTI and Hypoxic respiratory failure. A follow up echocardiogram this admission reports a decreased left ventricular systolic function EF 20-25%. Today, while on telemetry, patient was noted with a 16 beat run of NSVT. There were no reports of unusual shortness of breath, chest pain or diaphoresis. Cardiac consultation has been requested. Past History Past Medical History: acute VA, arthritis, COPD, diabetes, seizures, other (Dementia) Past Surgical History: Other (G Tube, Debridement of Sacral wound) Social history: . denies: smoking, alcohol abuse, prescription drug ab use Family history: diabetes, hypertension Medications and Allergies Allergies Allergy/AdvReac Type Severity Reaction Status Date / Time lisinopril Allergy Unknown Verified 10/01/18 15:17 tramadol Allergy Unknown Verified 07/29/18 18:39 Home Medications Medication Instructions Recorded Confirmed Last Taken Type Multivit-Min/Iron Fum/Folic AC 1 each PO DAILY 03/24/18 11/01/18 Unknown History [Gzhgy-Itphrsv-Zptksyzt Tablet] Acetaminophen 650 mg NGTUBE Q6H PRN 07/30/18 11/01/18 Unknown History Ipratropium/Albuterol Sulfate 1 ampul IH BID 07/30/18 11/01/18 Unknown History [DUONEB *Not for PRN Use*] Tamsulosin [Flomax] 0.4 mg PO QDAY 07/30/18 11/01/18 Unknown History Vit C/Ascorbate Calcium,Sodium 500 mg NGTUBE BID 07/30/18 11/01/18 Unknown History [Vitamin C 500 mg/15 ml Liquid] Zinc Sulfate 220 mg NGTUBE QDAY 07/30/18 11/01/18 Unknown History levETIRAcetam [Keppra INJ] 500 mg PO Q12H 07/30/18 11/01/18 Unknown History Phosphorus #1 [K-Phos Neutral] 250 mg PO QID #30 tablet 08/23/18 11/01/18 Unknown Rx hydroCHLOROthiazide [HCTZ] 12.5 mg PO QDAY #30 tablet 08/23/18 11/01/18 Unknown Rx AtorvaSTATin [Lipitor] 40 mg NGTUBE QHS #30 tablet 10/21/18 11/01/18 Unknown Rx cloNIDine-TTS PATCH [Catapres-Tts 0.2 mg TD Tu #7 patch 10/21/18 11/01/18 Unknown Rx 0.2mg Patch] Insulin Aspart [Novolog] 0 unit SQ AC 11/01/18 11/01/18 Unknown History Vancomycin/Water For Inj (Peg) 1 gm IV Q48H 11/01/18 11/01/18 Unknown History [Vancomycin 1 Gram/200 ml Bag] Active Meds: Active Medications Acetaminophen (Tylenol) 650 mg FEEDTUBE Q4H PRN PRN Reason: Pain, Moderate (4-6) Last Admin: 11/07/18 06:20 Dose: 650 mg Documented by: Albuterol (Proventil) 2.5 mg IH Q3HRT PRN PRN Reason: Shortness Of Breath Albuterol/Ipratropium (Duoneb *Not For Prn Use*) 1 ampul IH BID [facility] Last Admin: 11/08/18 10:09 Dose: Not Given Documented by: Lipase/Protease/Amylase (Nickie Moore 10,500 Unit) 1 each FEEDTUBE PRN PRN PRN Reason: For Clogged Feeding Tube Ascorbic Acid (Vitamin C) 500 mg FEEDTUBE BID [facility] Last Admin: 11/07/18 22:00 Dose: 500 mg Documented by: Atorvastatin Calcium (Lipitor) 40 mg FEEDTUBE QHS [facility] Last Admin: 11/07/18 22:00 Dose: 40 mg Documented by: Clonidine HCl (Catapres-Tts Patch) 0.2 mg TD Tu [facility] Last Admin: 11/05/18 18:49 Dose: 0.2 mg Documented by: Enoxaparin Sodium (Lovenox) 40 mg SUB-Q QDAY@1000 [facility] Last Admin: 11/07/18 10:45 Dose: 40 mg Documented by: Daptomycin 400 mg/ Sodium (Chloride) 100 mls @ 200 mls/hr IV Q24H [facility]; Protocol Last Admin: 11/07/18 21:00 Dose: 200 mls/hr Documented by: Levetiracetam (Keppra) 500 mg FEEDTUBE BID [facility] Last Admin: 11/07/18 22:00 Dose: 500 mg Documented by: Morphine Sulfate (Morphine) 2 mg IV Q4H PRN PRN Reason: Pain, Moderate (4-6) Last Admin: 11/07/18 09:55 Dose: 2 mg Documented by: Multivitamins (Centrum Liq) 5 ml FEEDTUBE QDAY [facility] Last Admin: 11/07/18 12:30 Dose: 5 ml Documented by: Simple Syrup (Simple Syrup) 15 ml FEEDTUBE PRN PRN PRN Reason: Hypoglycemia Simple Syrup (Simple Syrup) 30 ml FEEDTUBE PRN PRN PRN Reason: Hypoglycemia Sodium Bicarbonate (Sodium Bicarbonate) 325 mg FEEDTUBE PRN PRN PRN Reason: For Clogged Feeding Tube Sodium Chloride (Sodium Chloride Flush Syringe 10 Ml) 10 ml IV BID [facility] Last Admin: 11/07/18 23:52 Dose: 10 ml Documented by: Sodium Chloride (Sodium Chloride Flush Syringe 10 Ml) 10 ml IV PRN PRN PRN Reason: LINE FLUSH Sodium Hypochlorite (Dakin's Half Strength) 1 applic TP BID [facility] Zinc Sulfate (Zinc Sulfate) 220 mg PO DAILY [facility] Last Admin: 11/07/18 12:35 Dose: 220 mg Documented by: Physical Examination Vital Signs Pulse Ox 100 11/01/18 14:26 General appearance: no acute distress HEENT: Positive: PERRL Cardiac: Positive: Reg Rate and Rhythm Lungs: Positive: Decreased Breath Sounds Neuro: Positive: Other (contracted) Results 11/06/18 05:42 11/06/18 05:42 Assessment and Plan Severe sepsis Anemia s/p transfusion of PRBCs Decubitus ulcers Chronically elevated troponin Paroxysmal Afib previously considered not a candidate for oral anticoagulation LBBB, chronic Nonischemic CMP EF 20-25% by echocardiogram this admission DIANA-i allergy Recommend: Medical therapy for nonischemic cardiomyopathy as tolerated.
--- NOTE | 2018-11-08 13:15 | Consultation ---
History of Present Illness - HPI Consult date: 11/08/18 Consult reason: other History of present illness: 67 YO Male Senior Living Facility Resident as [facility] with HTN, CVA, Obstructive Uropathy, Diastolic CHF, Contracture, Sacral Decubitus Ulcers, TX, DM, OA, Seizure Disorder, COPD, Dementia, BPH presents to ED for evaluation. Pt is stuporous and unable to provide history. Pt history taken from ED Staff, EMS, and SNF Staff. As per staff, the patient was found to have respiratory distress upon evaluation this morning. Pt found to have pulse oximetry in the 80's. EMS notified and patient subsequently transported to [facility] for further care and evaluation. Pt seen and evaluated in ED and found to have UTI, Sepsis, Encephalopathy as well as Acute Hypoxemic Respiratory Failure. Since admission, wound service consulted and recommended hip disarticulation, however patient's daughter refuses DNR status... Past History Past Medical History: acute TX, arthritis, COPD, diabetes, seizures, other (Dementia) Past Surgical History: Other (G Tube, Debridement of Sacral wound) Social history: . denies: smoking, alcohol abuse, prescription drug abuse Family history: diabetes, hypertension Medications and Allergies Allergies Allergy/AdvReac Type Severity Reaction Status Date / Time lisinopril Allergy Unknown Verified 10/01/18 15:17 tramadol Allergy Unknown Verified 07/29/18 18:39 Home Medications Medication Instructions Recorded Confirmed Last Taken Type Multivit-Min/Iron Fum/Folic AC 1 each PO DAILY 03/24/18 11/01/18 Unknown History [Nzbzo-Ztropae-Lriqdntw Tablet] Acetaminophen 650 mg NGTUBE Q6H PRN 07/30/18 11/01/18 Unknown History Ipratropium/Albuterol Sulfate 1 ampul IH BID 07/30/18 11/01/18 Unknown History [DUONEB *Not for PRN Use*] Tamsulosin [Flomax] 0.4 mg PO QDAY 07/30/18 11/01/18 Unknown History Vit C/Ascorbate Calcium,Sodium 500 mg NGTUBE BID 07/30/18 11/01/18 Unknown History [Vitamin C 500 mg/15 ml Liquid] Zinc Sulfate 220 mg NGTUBE QDAY 07/30/18 11/01/18 Unknown History levETIRAcetam [Keppra INJ] 500 mg PO Q12H 07/30/18 11/01/18 Unknown History Phosphorus #1 [K-Phos Neutral] 250 mg PO QID #30 tablet 08/23/18 11/01/18 Unknown Rx hydroCHLOROthiazide [HCTZ] 12.5 mg PO QDAY #30 tablet 08/23/18 11/01/18 Unknown Rx AtorvaSTATin [Lipitor] 40 mg NGTUBE QHS #30 tablet 10/21/18 11/01/18 Unknown Rx cloNIDine-TTS PATCH [Catapres-Tts 0.2 mg TD Tu #7 patch 10/21/18 11/01/18 Unkno wn Rx 0.2mg Patch] Insulin Aspart [Novolog] 0 unit SQ AC 11/01/18 11/01/18 Unknown History Vancomycin/Water For Inj (Peg) 1 gm IV Q48H 11/01/18 11/01/18 Unknown History [Vancomycin 1 Gram/200 ml Bag] Active Meds: Active Medications Acetaminophen (Tylenol) 650 mg FEEDTUBE Q4H PRN PRN Reason: Pain, Moderate (4-6) Last Admin: 11/07/18 06:20 Dose: 650 mg Documented by: Albuterol (Proventil) 2.5 mg IH Q3HRT PRN PRN Reason: Shortness Of Breath Albuterol/Ipratropium (Duoneb *Not For Prn Use*) 1 ampul IH BID [facility] Last Admin: 11/08/18 10:09 Dose: Not Given Documented by: Lipase/Protease/Amylase (Nickie Moore 10,500 Unit) 1 each FEEDTUBE PRN PRN PRN Reason: For Clogged Feeding Tube Ascorbic Acid (Vitamin C) 500 mg FEEDTUBE BID [facility] Last Admin: 11/07/18 22:00 Dose: 500 mg Documented by: Atorvastatin Calcium (Lipitor) 40 mg FEEDTUBE QHS [facility] Last Admin: 11/07/18 22:00 Dose: 40 mg Documented by: Carvedilol (Coreg) 6.25 mg PO BID [facility] Clonidine HCl (Catapres-Tts Patch) 0.2 mg TD Tu [facility] Last Admin: 11/05/18 18:49 Dose: 0.2 mg Documented by: Enoxaparin Sodium (Lovenox) 40 mg SUB-Q QDAY@1000 [facility] Last Admin: 11/07/18 10:45 Dose: 40 mg Documented by: Daptomycin 400 mg/ Sodium (Chloride) 100 mls @ 200 mls/hr IV Q24H [facility]; Protocol Last Admin: 11/07/18 21:00 Dose: 200 mls/hr Documented by: Levetiracetam (Keppra) 500 mg FEEDTUBE BID [facility] Last Admin: 11/07/18 22:00 Dose: 500 mg Documented by: Morphine Sulfate (Morphine) 2 mg IV Q4H PRN PRN Reason: Pain, Moderate (4-6) Last Admin: 11/07/18 09:55 Dose: 2 mg Documented by: Multivitamins (Centrum Liq) 5 ml FEEDTUBE QDAY [facility] Last Admin: 11/07/18 12:30 Dose: 5 ml Documented by: Simple Syrup (Simple Syrup) 15 ml FEEDTUBE PRN PRN PRN Reason: Hypoglycemia Simple Syrup (Simple Syrup) 30 ml FEEDTUBE PRN PRN PRN Reason: Hypoglycemia Sodium Bicarbonate (Sodium Bicarbonate) 325 mg FEEDTUBE PRN PRN PRN Reason: For Clogged Feeding Tube Sodium Chloride (Sodium Chloride Flush Syringe 10 Ml) 10 ml IV BID [facility] Last Admin: 11/07/18 23:52 Dose: 10 ml Documented by: Sodium Chloride (Sodium Chloride Flush Syringe 10 Ml) 10 ml IV PRN PRN PRN Reason: LINE FLUSH Sodium Hypochlorite (Dakin's Half Strength) 1 applic TP BID [facility] Zinc Sulfate (Zinc Sulfate) 220 mg PO DAILY [facility] Last Admin: 11/07/18 12:35 Dose: 220 mg Documented by: Physical Examination - Physical exam Narrative exam: alert to name only, large sacral decubiti , contracted lower extremities - Shoulder bilateral Effusion grade: trace Tenderness with palpation: none Pain: no pain - Elbow bilateral Location of pain: no pain Pain modifiers: with motion Stiffness: unable to fully straight Swelling: none Other symptoms: none - Hip bilateral Gait: other Tenderness with palpation: none Pain with motion: no pain - Knee bilateral Appearance: normal Effusion grade: trace Varus alignment in stance: normal Valgus alignment in stance: normal Tenderness with palpation: none Pain: no pain Gait: other ROM: extension: -45 degrees ROM: flexion: 90 degrees Strength: extension: 1/5 Assessment and Plan chronic sacral decubiti ulcers if contemplating hip disarticution/amputation suggest transfer to another facility because those services not available at [facility]...
[2018-11-08] MEDS: KEPPRA FEEDTUBE SCH ×2 (13:57→21:30)
[2018-11-08] MEDS: SODIUM CHLORIDE FLUSH SYRINGE 10 ML IV SCH ×2 (13:57→21:33)
[2018-11-08] MEDS: VITAMIN C FEEDTUBE SCH ×2 (13:57→21:32)
[2018-11-08] MEDS: Centrum Liq FEEDTUBE SCH (13:57)
[2018-11-08] MEDS: ZINC SULFATE PO SCH (14:09)
[2018-11-08] MEDS: COREG PO SCH ×2 (14:11→21:31)
[2018-11-08] MEDS: LOVENOX SUB-Q SCH (14:12)
[2018-11-08] MEDS: DAKIN'S HALF STRENGTH TP SCH ×2 (15:03→21:29)
--- NOTE | 2018-11-08 16:41 | Progress Note ---
Assessment and Plan Assessment and plan: 67 YO Male Assisted Facility Resident as [facility] with HTN, CVA, Obstructive Uropathy, Diastolic CHF, Contracture, Sacral Decubitus Ulcers, [place], DM, OA, Seizure Disorder, COPD, Dementia, BPH presents to ED for evaluation. Pt is stuporous and unable to provide history. Pt history taken from ED Staff, EMS, and SNF Staff. As per staff, the patient was found to have respiratory distress upon evaluation this morning. Pt found to have pulse oximetry in the 80's. EMS notified and patient subsequently transported to [facility] for further care and evaluation. Pt seen and evaluated in ED and found to have UTI, Sepsis, Encephalopathy as well as Acute Hypoxemic Respiratory Failure. Pt initiated on NIPPV in ED with improvement in symptoms. Pt admitted to IMCU and initiated on Sepsis protocol. Prior admission on 10/01/18 reviewed. Extensive discussion with family about patients poor prognosis surgery consulted for possible debridment ID following, Pulmonary status improved Continue isolation care Chaudhary placed by Urology please do not remove Sepsis Continue IMCU care, place on isolation, ID consult noted, patient is on IV daptomycin blood cultures with gram positive Multiple hx of MRSA, Multi organ Monitor uop q shift. ID recumbent because Synthroid Respiratory failure Supplemental oxygen, nebulizer therapy,pulse oximetry, Chest X ray, NIPPV UNABLE TO GET v/q scan Pulmonary following the patient Anemia of chronic disease Transfuse one unit PRBC hemoglobin is stable Seizure Continue current therapy, seizure precautions. UTI (urinary tract infection) IV antibiotic therapy, CBC, CMP, Urinalysis. BPH Continue Chaudhary catherter Dementia IVF resuscitation therapy, supportive care, treat sepsis. sacral pressure ulcer -infected. POA WOUND CARE CONSULT. CONTINUE ABX. Debridement done by Dr Man Amputation recommended and the daughter refused Orthopedics consulted for hip disarticulation but said transfer if needed The wound involved the bone and orthopedics consulted. DVT prophylaxis Current Visit: Yes Status: Acute Plan to address problem: SCD to BLE while in bed, Prophylactic lovenox POOR PROGNOSIS Disposition; Discussed with ethics committee. Treating the patient with antibiotics is futile and the best option is either palliative care or amputation which the daughter refused. Pending ethics committee meeting. History Interval history: Patient was seen and evaluated this morning, patient states that he doesn't have pain. patient refused bilateral AKA, wants everything to be done. Hospitalist Physical - Physical exam Narrative exam: Not in cardiopulmonary distress. The patient appeared well nourished and normally developed. Vital signs as documented. Head exam is unremarkable. No scleral icterus . Neck is without jugular venous distension, thyromegaly, or carotid bruits. Lungs are clear to auscultation. Cardiac exam reveals regular rate and Rhythm. First and second heart sounds normal. No murmurs, rubs or gallops. Abdominal exam reveals normal bowel sounds, no masses, no organomegaly and no aortic enlargement. Extremities contracted extremities. POWER LINE INSTALLER: Alert and oriented 3. No focal weakness. Skin; multiple decubitus ulcers, including the sacrum and the heel. - Constitutional Vitals: Temp Pulse Resp BP Pulse Ox 98.0 F 95 H 20 151/84 96 11/08/18 16:11 11/08/18 16:11 11/08/18 16:11 11/08/18 16:11 11/08/18 16:11 General appearance: Present: no acute distress Results - Labs CBC & Chem 7: 11/06/18 05:42 11/06/18 05:42 Labs: Laboratory Last Values WBC 9.6 K/mm3 (4.5-11.0) 11/06/18 05:42 RBC 2.80 M/mm3 (3.65-5.03) L 11/06/18 05:42 Hgb 7.9 gm/dl (11.8-15.2) L 11/06/18 05:42 Hct 24.7 % (35.5-45.6) L 11/06/18 05:42 MCV 88 fl (84-94) 11/06/18 05:42 MCH 28 pg (28-32) 11/06/18 05:42 MCHC 32 % (32-34) 11/06/18 05:42 RDW 17.0 % (13.2-15.2) H 11/06/18 05:42 Plt Count 478 K/mm3 (140-440) H 11/06/18 05:42 Lymph % (Auto) 10.4 % (13.4-35.0) L 11/06/18 05:42 [place] % (Auto) 8.6 % (0.0-7.3) H 11/06/18 05:42 Eos % (Auto) 4.7 % (0.0-4.3) H 11/06/18 05:42 Baso % (Auto) 0.7 % (0.0-1.8) 11/06/18 05:42 Lymph # 1.0 K/mm3 (1.2-5.4) L 11/06/18 05:42 [place] # 0.8 K/mm3 (0.0-0.8) 11/06/18 05:42 Eos # 0.5 K/mm3 (0.0-0.4) H 11/06/18 05:42 Baso # 0.1 K/mm3 (0.0-0.1) 11/06/18 05:42 Seg Neutrophils % 75.6 % (40.0-70.0) H 11/06/18 05:42 Seg Neutrophils # 7.3 K/mm3 (1.8-7.7) 11/06/18 05:42 PT 16.3 Sec. (12.2-14.9) H 11/01/18 14:50 INR 1.35 (0.87-1.13) H 11/01/18 14:50 POC ABG pH 7.494 (7.35-7.45) H 11/01/18 15:27 POC ABG pCO2 34.5 (35-45) L 11/01/18 15:27 POC ABG pO2 139 (80-105) H 11/01/18 15:27 POC ABG HCO3 26.5 (22-26 mml/L) 11/01/18 15:27 POC ABG Total CO2 28 (23-27mmol/L) 11/01/18 15:27 POC ABG O2 Sat 99 11/01/18 15:27 POC ABG Base Excess 3 ((-2) - (+3)mmol/L) 11/01/18 15:27 VBG pH 7.499 (7.320-7.420) H 11/01/18 14:50 50 % 11/01/18 15:27 Sodium 149 mmol/L (137-145) H 11/06/18 05:42 Potassium 4.0 mmol/L (3.6-5.0) 11/06/18 05:42 Chloride 113.4 mmol/L (98-107) H 11/06/18 05:42 Carbon Dioxide 23 mmol/L (22-30) 11/06/18 05:42 17 mmol/L 11/06/18 05:42 BUN 50 mg/dL (9-20) H 11/06/18 05:42 1.1 mg/dL (0.8-1.5) 11/06/18 05:42 Estimated GFR > 60 ml/min 11/06/18 05:42 45 % 11/06/18 05:42 Glucose 121 mg/dL (75-100) H 11/06/18 05:42 Lactic Acid 1.80 mmol/L (0.7-2.0) 11/01/18 14:50 Calcium 8.6 mg/dL (8.4-10.2) 11/06/18 05:42 0.30 mg/dL (0.1-1.2) 11/01/18 14:50 AST 90 units/L (5-40) H 11/01/18 14:50 ALT 77 units/L (7-56) H 11/01/18 14:50 350 units/L (35-129) H 11/01/18 14:50 NT-Pro-B Natriuret Pep 6776 pg/mL (0-900) H 11/01/18 14:50 7.9 g/dL (6.3-8.2) 11/01/18 14:50 1.6 g/dL (3.9-5) L 11/01/18 14:50 0.3 % 11/01/18 14:50 Yellow (Yellow) 11/01/18 15:57 Turbid (Clear) 11/01/18 15:57 6.0 (5.0-7.0) 11/01/18 15:57 Ur Specific [place] 1.016 (1.003-1.030) 11/01/18 15:57 100 mg/dl mg/dL (Negative) 11/01/18 15:57 Neg mg/dL (Negative) 11/01/18 15:57 Neg mg/dL (Negative) 11/01/18 15:57 Neg (Negative) 11/01/18 15:57 Neg (Negative) 11/01/18 15:57 Neg (Negative) 11/01/18 15:57 < 2.0 mg/dL (<2.0) 11/01/18 15:57 Ur Leukocyte Esterase Mod (Negative) 11/01/18 15:57 > 182.0 /HPF (0.0-6.0) H 11/01/18 15:57 40.0 /HPF (0.0-6.0) 11/01/18 15:57 U Epithel Cells (Auto) 8.0 /HPF (0-13.0) 11/01/18 15:57 3+ /HPF 11/01/18 15:57 3+ /HPF 11/01/18 15:57 Random Vancomycin 13.9 ug/mL (0-40.0) 11/02/18 05:05 Blood Type O POSITIVE 11/03/18 12:51 Antibody Screen Negative 11/03/18 12:51 Crossmatch See Detail 11/03/18 12:51 Active Medications - Current Medications Current Medications: Generic Name Dose Route Start Last Admin Trade Name Freq PRN Reason Stop Dose Admin Acetaminophen 650 mg 11/01/18 17:38 11/07/18 06:20 Tylenol FEEDTUBE 650 mg Q4H PRN Administration Pain, Moderate (4-6) Albuterol 2.5 mg 11/01/18 17:15 Proventil IH Q3HRT PRN Shortness Of Breath Albuterol/Ipratropium 1 ampul 11/01/18 22:00 11/08/18 10:09 Duoneb *Not For Prn Use* IH Not Given BID [facility] Lipase/Protease/Amylase 1 each 11/03/18 17:12 Pancreaze 10,500 Unit FEEDTUBE PRN PRN For Clogged Feeding Tube Ascorbic Acid 500 mg 11/01/18 22:00 11/08/18 13:57 Vitamin C FEEDTUBE 500 mg BID [facility]A Administration Atorvastatin Calcium 40 mg 11/01/18 22:00 11/07/18 22:00 Lipitor FEEDTUBE 40 mg QHS NORA Administration Carvedilol 6.25 mg 11/08/18 13:00 11/08/18 14:11 Coreg PO 6.25 mg BID NORA Administration Clonidine HCl 0.2 mg 11/05/18 17:18 11/05/18 18:49 Catapres-Tts Patch TD 0.2 mg Tu [facility]A Administration Enoxaparin Sodium 40 mg 11/02/18 10:00 11/08/18 14:12 Lovenox SUB-Q 40 mg QDAY@1000 [facility] Administration Daptomycin 400 mg/ Sodium 100 mls @ 200 mls/hr 11/03/18 21:00 11/07/18 21:00 Chloride IV 200 mls/hr Q24H [facility]A Administration Protocol Levetiracetam 500 mg 11/01/18 22:00 11/08/18 13:57 Keppra FEEDTUBE 500 mg BID [facility] Administration Morphine Sulfate 2 mg 11/01/18 17:15 11/07/18 09:55 Morphine IV 2 mg Q4H PRN Administration Pain, Moderate (4-6) Multivitamins 5 ml 11/02/18 10:00 11/08/18 13:57 Centrum Liq FEEDTUBE 5 ml QDAY [facility] Administration Simple Syrup 15 ml 11/03/18 17:12 Simple Syrup FEEDTUBE PRN PRN Hypoglycemia Simple Syrup 30 ml 11/03/18 17:12 Simple Syrup FEEDTUBE PRN PRN Hypoglycemia Sodium Bicarbonate 325 mg 11/03/18 17:12 Sodium Bicarbonate FEEDTUBE PRN PRN For Clogged Feeding Tube Sodium Chloride 10 ml 11/01/18 22:00 11/08/18 13:57 Sodium Chloride Flush Syringe 10 Ml IV 10 ml BID [facility] Administration Sodium Chloride 10 ml 11/01/18 17:15 Sodium Chloride Flush Syringe 10 Ml IV PRN PRN LINE FLUSH Sodium Hypochlorite 1 applic 11/08/18 11:00 Dakin's Half Strength TP BID [facility] Zinc Sulfate 220 mg 11/02/18 10:00 11/08/18 14:09 Zinc Sulfate PO 220 mg DAILY [facility] Administration Nutrition/Malnutrition Assess - Dietary Evaluation Nutrition/Malnutrition Findings: Nutrition Notes Start: 11/04/18 16:00 Freq: Status: Active Protocol: Document 11/07/18 15:07 RM (Rec: 11/07/18 15:09 RM [id number]) Nutrition Notes Initial or Follow up Reassessment Current Diagnosis COPD,Diabetes,Sepsis, Hypertension,Heart Failure, Stroke Other Pertinent Diagnosis Sacral PUs, UTI, Dementia Current Diet Glucerna 1.2 at 60 ml/hr Labs/Tests Reviewed Pertinent Medications Reviewed Height 5 ft 8 in Weight 61.4 kg [place] Body Weight (kg) 70.00 BMI 20.5 Subjective/Other Information Observed Glucerna infusing at goal rate. Per nurse pt is tolerating TF. Percent of energy/protein needs met: 100%/100% Burn Absent Trauma Absent #1 Nutrition Diagnosis Inadequate oral intake Diagnosis Progress(for reassessment Continues documentation) Is patient on ventilator? No Is Patient Ambulatory and/or Out of Bed No REE-([facility]-confined to bed) 1896.331 Calculation Used for Recommendations [facility] Additional Notes Protein Needs: 76-95g (1.2-1. 5g/kg) Fluid Needs: 1 ml/kcal Nutrition Intervention Nutrition Support: Glucerna at 60 ml/hr. Water flush of 100 mls q 4 hrs . Kcal 1,728 Protein (gm) 86 Fluid (mL) 1,159 Goal #1 TF tolerance Goal #2 Continue meet at least 75% of calorie and protein needs via TF Anticipated Discharge Needs: Unable to determine at this time Follow-Up By: 11/14/18 Additional Comments Follow for TF tolerance
[2018-11-08] MEDS: DAPTOMYCIN IV SCH (21:30)
[2018-11-08] MEDS: NACL 0.9% IV SCH (21:30)
[2018-11-08] MEDS: MORPHINE IV PRN (21:31)
[2018-11-09] MEDS: DUONEB *Not for PRN Use IH SCH ×2 (09:08→21:54)
[2018-11-09] MEDS: COREG PO SCH ×2 (10:48→23:00)
[2018-11-09] MEDS: LOVENOX SUB-Q SCH (10:49)
[2018-11-09] MEDS: KEPPRA FEEDTUBE SCH ×2 (10:49→22:56)
[2018-11-09] MEDS: SODIUM CHLORIDE FLUSH SYRINGE 10 ML IV SCH ×2 (10:49→22:57)
[2018-11-09] MEDS: ZINC SULFATE PO SCH (10:49)
[2018-11-09] MEDS: VITAMIN C FEEDTUBE SCH ×2 (10:50→22:56)
[2018-11-09] MEDS: Centrum Liq FEEDTUBE SCH (10:50)
[2018-11-09] MEDS: DAKIN'S HALF STRENGTH TP SCH ×2 (10:50→22:57)
--- NOTE | 2018-11-09 14:19 | Progress Note ---
Assessment and Plan Severe Sepsis Acute Hypoxemic Respiratory failure Anemia of chronic disease Seizure UTI (urinary tract infection) BPH Dementia sacral pressure ulcer -infected. POA - continue supplemental oxygen as needed to keep O2 sat's > 90% - continue bronchodilators with pulmonary hygiene per RT - continue AED's for seizure control - fall precautions - neurochecks - aspiration precautions - complete antibiotics per ID rec's - enteral nutrition as tolerated - continue wound care per WCT - continue bright catheter re: Obstructive Uropathy - GI & VTE prophylaxis - continue mobility protocol for pressure ulcer prophylaxis ... re-evaluate in am & prn Subjective Date of service: 11/09/18 Principal diagnosis: Severe Sepsis; Ac. Hypoxemic Resp failure; Anemia; Seizure; UTI; BPH Interval history: Patient is seen today for: Severe Sepsis; Acute Hypoxemic Respiratory failure; Anemia of chronic disease; Seizure; UTI (urinary tract infection); BPH; Dementia; sacral pressure ulcer -infected. POA Seen and examined at bedside; 24-hour events reviewed; nursing and respiratory care staff consulted; no adverse overnight events reported to me; resting peacefully in bed; refused surgical intervention / amputation; denies acute chest pains or palpitations; No N/V/F/C Objective Vital Signs - 12hr 11/09/18 11/09/18 11/09/18 04:31 08:48 09:05 Temperature 99.6 F Pulse Rate 62 101 H Pulse Rate [ 100 H Bilateral Throughout] Respiratory 14 Rate Respiratory 18 Rate [Bilateral Throughout] Blood Pressure 131/82 161/92 O2 Sat by Pulse 100 99 Oximetry 11/09/18 11/09/18 09:11 09:12 Temperature Pulse Rate Pulse Rate [ 94 H Bilateral Throughout] Respiratory Rate Respiratory 16 Rate [Bilateral Throughout] Blood Pressure O2 Sat by Pulse 100 Oximetry Constitutional: no acute distress, alert, other (Patient weak and contacted) Eyes: non-icteric ENT: oropharynx moist Neck: supple, no lymphadenopathy, no JVD Effort: mildly labored Ascultation: Bilateral: diminished breath sounds, rhonchi Percussion: Bilateral: not dull Cardiovascular: regular rate and rhythm Gastrointestinal: normoactive bowel sounds, soft, non-tender, non-distended Integumentary: rash Extremities: no cyanosis, no edema, pulses normal, other (Patient has pressure ulcer at multiple areas, including sacral area.) Neurologic: non-focal exam, pupils equal and round, CN II-XII normal, other (+ contractures) Psychiatric: other (flat affect) CBC and BMP: 11/06/18 05:42 11/06/18 05:42 ABG, PT/INR, D-dimer: ABG POC ABG pH 7.494 (7.35-7.45) H 11/01/18 15:27 POC ABG pCO2 34.5 (35-45) L 11/01/18 15:27 POC ABG pO2 139 (80-105) H 11/01/18 15:27 POC ABG HCO3 26.5 (22-26 mml/L) 11/01/18 15:27 POC ABG Total CO2 28 (23-27mmol/L) 11/01/18 15:27 POC ABG O2 Sat 99 11/01/18 15:27 PT/INR, D-dimer PT 16.3 Sec. (12.2-14.9) H 11/01/18 14:50 INR 1.35 (0.87-1.13) H 11/01/18 14:50 Abnormal lab findings: Abnormal Labs 11/01/18 11/01/18 11/01/18 14:50 14:50 14:50 WBC 15.3 H RBC 2.76 L Hgb 7.9 L Hct 23.5 L MCH MCHC RDW 18.3 H Plt Count 567 H Lymph % (Auto) 6.5 L [place] % (Auto) 8.5 H Eos % (Auto) Lymph # 1.0 L [place] # 1.3 H Eos # Seg Neutrophils % 83.4 H Seg Neutrophils # 12.7 H PT 16.3 H INR 1.35 H POC ABG pH POC ABG pCO2 POC ABG pO2 VBG pH Sodium Chloride Carbon Dioxide BUN 49 H Glucose 132 H AST 90 H ALT 77 H Alkaline Phosphatase 350 H NT-Pro-B Natriuret Pep Albumin 1.6 L Urine WBC (Auto) Crossmatch 11/01/18 11/01/18 11/01/18 14:50 14:50 15:27 WBC RBC Hgb Hct MCH MCHC RDW Plt Count Lymph % (Auto) [place] % (Auto) Eos % (Auto) Lymph # [place] # Eos # Seg Neutrophils % Seg Neutrophils # PT INR POC ABG pH 7.494 H POC ABG pCO2 34.5 L POC ABG pO2 139 H VBG pH 7.499 H Sodium Chloride Carbon Dioxide BUN Glucose AST ALT Alkaline Phosphatase NT-Pro-B Natriuret Pep 6776 H Albumin Urine WBC (Auto) Crossmatch 11/01/18 11/03/18 11/03/18 15:57 03:41 03:41 WBC 12.8 H RBC 2.55 L Hgb 6.9 L Hct 22.2 L MCH 27 L MCHC 31 L RDW 17.9 H Plt Count 519 H Lymph % (Auto) [place] % (Auto) Eos % (Auto) Lymph # [place] # Eos # Seg Neutrophils % Seg Neutrophils # PT INR POC ABG pH POC ABG pCO2 POC ABG pO2 VBG pH Sodium 147 H Chloride 110.3 H Carbon Dioxide BUN 55 H Glucose AST ALT Alkaline Phosphatase NT-Pro-B Natriuret Pep Albumin Urine WBC (Auto) > 182.0 H Crossmatch 11/03/18 11/04/18 11/04/18 12:51 05:12 05:12 WBC 11.5 H RBC 2.94 L Hgb 8.3 L Hct 25.3 L MCH MCHC RDW 17.3 H Plt Count 514 H Lymph % (Auto) [place] % (Auto) Eos % (Auto) Lymph # [place] # Eos # Seg Neutrophils % Seg Neutrophils # PT INR POC ABG pH POC ABG pCO2 POC ABG pO2 VBG pH Sodium 147 H Chloride 112.4 H Carbon Dioxide BUN 52 H Glucose AST ALT Alkaline Phosphatase NT-Pro-B Natriuret Pep Albumin Urine WBC (Auto) Crossmatch See Detail 11/05/18 11/05/18 11/06/18 04:50 04:50 05:42 WBC RBC 3.03 L 2.80 L Hgb 8.7 L 7.9 L Hct 26.6 L 24.7 L MCH MCHC RDW 17.1 H 17.0 H Plt Count 502 H 478 H Lymph % (Auto) 10.4 L [place] % (Auto) 8.6 H Eos % (Auto) 4.7 H Lymph # 1.0 L [place] # Eos # 0.5 H Seg Neutrophils % 75.6 H Seg Neutrophils # PT INR POC ABG pH POC ABG pCO2 POC ABG pO2 VBG pH Sodium 149 H Chloride 114.4 H Carbon Dioxide 21 L BUN 50 H Glucose 108 H AST ALT Alkaline Phosphatase NT-Pro-B Natriuret Pep Albumin Urine WBC (Auto) Crossmatch 11/06/18 05:42 WBC RBC Hgb Hct MCH MCHC RDW Plt Count Lymph % (Auto) [place] % (Auto) Eos % (Auto) Lymph # [place] # Eos # Seg Neutrophils % Seg Neutrophils # PT INR POC ABG pH POC ABG pCO2 POC ABG pO2 VBG pH Sodium 149 H Chloride 113.4 H Carbon Dioxide BUN 50 H Glucose 121 H AST ALT Alkaline Phosphatase NT-Pro-B Natriuret Pep Albumin Urine WBC (Auto) Crossmatch Chest x-ray: image reviewed (left PICC) Allied health notes reviewed: nursing
--- NOTE | 2018-11-09 17:12 | Progress Note ---
Assessment and Plan Assessment and plan: 67 YO Male Longterm Facility Resident as [facility] with HTN, CVA, Obstructive Uropathy, Diastolic CHF, Contracture, Sacral Decubitus Ulcers, [place], DM, OA, Seizure Disorder, COPD, Dementia, BPH presents to ED for evaluation. Pt is stuporous and unable to provide history. Pt history taken from ED Staff, EMS, and SNF Staff. As per staff, the patient was found to have respiratory distress upon evaluation this morning. Pt found to have pulse oximetry in the 80's. EMS notified and patient subsequently transported to [facility] for further care and evaluation. Pt seen and evaluated in ED and found to have UTI, Sepsis, Encephalopathy as well as Acute Hypoxemic Respiratory Failure. Pt initiated on NIPPV in ED with improvement in symptoms. Pt admitted to IMCU and initiated on Sepsis protocol. Prior admission on 10/01/18 reviewed. Extensive discussion with family about patients poor prognosis surgery consulted for possible debridment ID following, Pulmonary status improved Continue isolation care Chaudhary placed by Urology please do not remove Sepsis Continue IMCU care, place on isolation, ID consult noted, patient is on IV daptomycin blood cultures with gram positive Multiple hx of MRSA, Multi organ Monitor uop q shift. ID recumbent because Synthroid Respiratory failure Supplemental oxygen, nebulizer therapy,pulse oximetry, Chest X ray, NIPPV UNABLE TO GET v/q scan Pulmonary following the patient Anemia of chronic disease Transfuse one unit PRBC hemoglobin is stable Seizure Continue current therapy, seizure precautions. UTI (urinary tract infection) IV antibiotic therapy, CBC, CMP, Urinalysis. BPH Continue Chaudhary catherter Dementia IVF resuscitation therapy, supportive care, treat sepsis. sacral pressure ulcer -infected. POA WOUND CARE CONSULT. CONTINUE ABX. Debridement done by Dr Man Amputation recommended and the daughter refused Orthopedics consulted for hip disarticulation but said transfer if needed The wound involved the bone and orthopedics consulted. DVT prophylaxis Current Visit: Yes Status: Acute Plan to address problem: SCD to BLE while in bed, Prophylactic lovenox POOR PROGNOSIS Disposition; Discussed with ethics committee. Treating the patient with antibiotics is futile and the best option is either palliative care or amputation which the daughter refused. Pending ethics committee meeting. History Interval history: Patient was seen and evaluated this morning, patient states that he doesn't have pain. patient refused bilateral AKA, wants everything to be done. Hospitalist Physical - Physical exam Narrative exam: Not in cardiopulmonary distress. The patient appeared well nourished and normally developed. Vital signs as documented. Head exam is unremarkable. No scleral icterus . Neck is without jugular venous distension, thyromegaly, or carotid bruits. Lungs are clear to auscultation. Cardiac exam reveals regular rate and Rhythm. First and second heart sounds normal. No murmurs, rubs or gallops. Abdominal exam reveals normal bowel sounds, no masses, no organomegaly and no aortic enlargement. Extremities contracted extremities. 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 No focal weakness. Skin; multiple decubitus ulcers, including the sacrum and the heel. - Constitutional Vitals: Temp Pulse Resp BP Pulse Ox 99.6 F 100 H 22 161/92 96 11/09/18 08:48 11/09/18 10:00 11/09/18 10:00 11/09/18 08:48 11/09/18 10:00 General appearance: Present: no acute distress Results - Labs CBC & Chem 7: 11/06/18 05:42 11/06/18 05:42 Labs: Laboratory Last Values WBC 9.6 K/mm3 (4.5-11.0) 11/06/18 05:42 RBC 2.80 M/mm3 (3.65-5.03) L 11/06/18 05:42 Hgb 7.9 gm/dl (11.8-15.2) L 11/06/18 05:42 Hct 24.7 % (35.5-45.6) L 11/06/18 05:42 MCV 88 fl (84-94) 11/06/18 05:42 MCH 28 pg (28-32) 11/06/18 05:42 MCHC 32 % (32-34) 11/06/18 05:42 RDW 17.0 % (13.2-15.2) H 11/06/18 05:42 Plt Count 478 K/mm3 (140-440) H 11/06/18 05:42 Lymph % (Auto) 10.4 % (13.4-35.0) L 11/06/18 05:42 [place] % (Auto) 8.6 % (0.0-7.3) H 11/06/18 05:42 Eos % (Auto) 4.7 % (0.0-4.3) H 11/06/18 05:42 Baso % (Auto) 0.7 % (0.0-1.8) 11/06/18 05:42 Lymph # 1.0 K/mm3 (1.2-5.4) L 11/06/18 05:42 [place] # 0.8 K/mm3 (0.0-0.8) 11/06/18 05:42 Eos # 0.5 K/mm3 (0.0-0.4) H 11/06/18 05:42 Baso # 0.1 K/mm3 (0.0-0.1) 11/06/18 05:42 Seg Neutrophils % 75.6 % (40.0-70.0) H 11/06/18 05:42 Seg Neutrophils # 7.3 K/mm3 (1.8-7.7) 11/06/18 05:42 PT 16.3 Sec. (12.2-14.9) H 11/01/18 14:50 INR 1.35 (0.87-1.13) H 11/01/18 14:50 POC ABG pH 7.494 (7.35-7.45) H 11/01/18 15:27 POC ABG pCO2 34.5 (35-45) L 11/01/18 15:27 POC ABG pO2 139 (80-105) H 11/01/18 15:27 POC ABG HCO3 26.5 (22-26 mml/L) 11/01/18 15:27 POC ABG Total CO2 28 (23-27mmol/L) 11/01/18 15:27 POC ABG O2 Sat 99 11/01/18 15:27 POC ABG Base Excess 3 ((-2) - (+3)mmol/L) 11/01/18 15:27 VBG pH 7.499 (7.320-7.420) H 11/01/18 14:50 50 % 11/01/18 15:27 Sodium 149 mmol/L (137-145) H 11/06/18 05:42 Potassium 4.0 mmol/L (3.6-5.0) 11/06/18 05:42 Chloride 113.4 mmol/L (98-107) H 11/06/18 05:42 Carbon Dioxide 23 mmol/L (22-30) 11/06/18 05:42 17 mmol/L 11/06/18 05:42 BUN 50 mg/dL (9-20) H 11/06/18 05:42 1.1 mg/dL (0.8-1.5) 11/06/18 05:42 Estimated GFR > 60 ml/min 11/06/18 05:42 45 % 11/06/18 05:42 Glucose 121 mg/dL (75-100) H 11/06/18 05:42 Lactic Acid 1.80 mmol/L (0.7-2.0) 11/01/18 14:50 Calcium 8.6 mg/dL (8.4-10.2) 11/06/18 05:42 0.30 mg/dL (0.1-1.2) 11/01/18 14:50 AST 90 units/L (5-40) H 11/01/18 14:50 ALT 77 units/L (7-56) H 11/01/18 14:50 350 units/L (35-129) H 11/01/18 14:50 59 units/L (55-170) 11/09/18 04:57 NT-Pro-B Natriuret Pep 6776 pg/mL (0-900) H 11/01/18 14:50 7.9 g/dL (6.3-8.2) 11/01/18 14:50 1.6 g/dL (3.9-5) L 11/01/18 14:50 0.3 % 11/01/18 14:50 Yellow (Yellow) 11/01/18 15:57 Turbid (Clear) 11/01/18 15:57 6.0 (5.0-7.0) 11/01/18 15:57 Ur Specific [place] 1.016 (1.003-1.030) 11/01/18 15:57 100 mg/dl mg/dL (Negative) 11/01/18 15:57 Neg mg/dL (Negative) 11/01/18 15:57 Neg mg/dL (Negative) 11/01/18 15:57 Neg (Negative) 11/01/18 15:57 Neg (Negative) 11/01/18 15:57 Neg (Negative) 11/01/18 15:57 < 2.0 mg/dL (<2.0) 11/01/18 15:57 Ur Leukocyte Esterase Mod (Negative) 11/01/18 15:57 > 182.0 /HPF (0.0-6.0) H 11/01/18 15:57 40.0 /HPF (0.0-6.0) 11/01/18 15:57 U Epithel Cells (Auto) 8.0 /HPF (0-13.0) 11/01/18 15:57 3+ /HPF 11/01/18 15:57 3+ /HPF 11/01/18 15:57 Random Vancomycin 13.9 ug/mL (0-40.0) 11/02/18 05:05 Blood Type O POSITIVE 11/03/18 12:51 Antibody Screen Negative 11/03/18 12:51 Crossmatch See Detail 11/03/18 12:51 Active Medications - Current Medications Current Medications: Generic Name Dose Route Start Last Admin Trade Name Freq PRN Reason Stop Dose Admin Acetaminophen 650 mg 11/01/18 17:38 11/07/18 06:20 Tylenol FEEDTUBE 650 mg Q4H PRN Administration Pain, Moderate (4-6) Albuterol 2.5 mg 11/01/18 17:15 Proventil IH Q3HRT PRN Shortness Of Breath Albuterol/Ipratropium 1 ampul 11/09/18 20:00 Duoneb *Not For Prn Use* IH BIDRT NORA Lipase/Protease/Amylase 1 each 11/03/18 17:12 Pancreaze 10,500 Unit FEEDTUBE PRN PRN For Clogged Feeding Tube Ascorbic Acid 500 mg 11/01/18 22:00 11/09/18 10:50 Vitamin C FEEDTUBE 500 mg BID NORA Administration Atorvastatin Calcium 40 mg 11/01/18 22:00 11/08/18 21:32 Lipitor FEEDTUBE 40 mg QHS NORA Administration Carvedilol 6.25 mg 11/08/18 13:00 11/09/18 10:48 Coreg PO 6.25 mg BID NORA Administration Clonidine HCl 0.2 mg 11/05/18 17:18 11/05/18 18:49 Catapres-Tts Patch TD 0.2 mg Tu NORA Administration Enoxaparin Sodium 40 mg 11/02/18 10:00 11/09/18 10:49 Lovenox SUB-Q 40 mg QDAY@1000 NORA Administration Daptomycin 400 mg/ Sodium 100 mls @ 200 mls/hr 11/03/18 21:00 11/08/18 21:30 Chloride IV 200 mls/hr Q24H NORA Administration Protocol Levetiracetam 500 mg 11/01/18 22:00 11/09/18 10:49 Keppra FEEDTUBE 500 mg BID NORA Administration Morphine Sulfate 2 mg 11/01/18 17:15 11/08/18 21:31 Morphine IV 2 mg Q4H PRN Administration Pain, Moderate (4-6) Multivitamins 5 ml 11/02/18 10:00 11/09/18 10:50 Centrum Liq FEEDTUBE 5 ml QDAY NORA Administration Simple Syrup 15 ml 11/03/18 17:12 Simple Syrup FEEDTUBE PRN PRN Hypoglycemia Simple Syrup 30 ml 11/03/18 17:12 Simple Syrup FEEDTUBE PRN PRN Hypoglycemia Sodium Bicarbonate 325 mg 11/03/18 17:12 Sodium Bicarbonate FEEDTUBE PRN PRN For Clogged Feeding Tube Sodium Chloride 10 ml 11/01/18 22:00 11/09/18 10:49 Sodium Chloride Flush Syringe 10 Ml IV 10 ml BID NORA Administration Sodium Chloride 10 ml 11/01/18 17:15 Sodium Chloride Flush Syringe 10 Ml IV PRN PRN LINE FLUSH Sodium Hypochlorite 1 applic 11/08/18 11:00 11/09/18 10:50 Dakin's Half Strength TP 1 bottle BID NORA Administration Zinc Sulfate 220 mg 11/02/18 10:00 11/09/18 10:49 Zinc Sulfate PO 220 mg DAILY NORA Administration Nutrition/Malnutrition Assess - Dietary Evaluation Nutrition/Malnutrition Findings: Nutrition Notes Start: 11/04/18 16:00 Freq: Status: Active Protocol: Document 11/07/18 15:07 RM (Rec: 11/07/18 15:09 [email or web address]) Nutrition Notes Initial or Follow up Reassessment Current Diagnosis COPD,Diabetes,Sepsis, Hypertension,Heart Failure, Stroke Other Pertinent Diagnosis Sacral PUs, UTI, Dementia Current Diet Glucerna 1.2 at 60 ml/hr Labs/Tests Reviewed Pertinent Medications Reviewed Height 5 ft 8 in Weight 61.4 kg [place] Body Weight (kg) 70.00 BMI 20.5 Subjective/Other Information Observed Glucerna infusing at goal rate. Per nurse pt is tolerating TF. Percent of energy/protein needs met: 100%/100% Burn Absent Trauma Absent #1 Nutrition Diagnosis Inadequate oral intake Diagnosis Progress(for reassessment Continues documentation) Is patient on ventilator? No Is Patient Ambulatory and/or Out of Bed No REE-([facility]-confined to bed) 6505.999 Calculation Used for Recommendations [facility] Additional Notes Protein Needs: 76-95g (1.2-1. 5g/kg) Fluid Needs: 1 ml/kcal Nutrition Intervention Nutrition Support: Glucerna at 60 ml/hr. Water flush of 100 mls q 4 hrs . Kcal 1,728 Protein (gm) 86 Fluid (mL) 1,159 Goal #1 TF tolerance Goal #2 Continue meet at least 75% of calorie and protein needs via TF Anticipated Discharge Needs: Unable to determine at this time Follow-Up By: 11/14/18 Additional Comments Follow for TF tolerance
[2018-11-09] MEDS: NACL 0.9% IV SCH ×2 (21:22→21:40)
[2018-11-09] MEDS: DAPTOMYCIN IV SCH ×2 (21:22→21:40)
[2018-11-10] MEDS: DUONEB *Not for PRN Use IH SCH ×2 (07:58→21:28)
[2018-11-10] MEDS: LOVENOX SUB-Q SCH (11:27)
[2018-11-10] MEDS: KEPPRA FEEDTUBE SCH ×2 (11:27→23:00)
[2018-11-10] MEDS: COREG PO SCH ×2 (11:27→22:59)
[2018-11-10] MEDS: ZINC SULFATE PO SCH (11:27)
[2018-11-10] MEDS: VITAMIN C FEEDTUBE SCH ×2 (11:28→22:58)
[2018-11-10] MEDS: Centrum Liq FEEDTUBE SCH (11:28)
--- NOTE | 2018-11-10 13:40 | Progress Note ---
Assessment and Plan Assessment and plan: 67 YO Male Longterm Facility Resident as [facility] with HTN, CVA, Obstructive Uropathy, Diastolic CHF, Contracture, Sacral Decubitus Ulcers, [place], DM, OA, Seizure Disorder, COPD, Dementia, BPH presents to ED for evaluation. Pt is stuporous and unable to provide history. Pt history taken from ED Staff, EMS, and SNF Staff. As per staff, the patient was found to have respiratory distress upon evaluation this morning. Pt found to have pulse oximetry in the 80's. EMS notified and patient subsequently transported to [facility] for further care and evaluation. Pt seen and evaluated in ED and found to have UTI, Sepsis, Encephalopathy as well as Acute Hypoxemic Respiratory Failure. Pt initiated on NIPPV in ED with improvement in symptoms. Pt admitted to IMCU and initiated on Sepsis protocol. Prior admission on 10/01/18 reviewed. Extensive discussion with family about patients poor prognosis surgery consulted for possible debridment ID following, Pulmonary status improved Continue isolation care Chaudhary placed by Urology please do not remove Sepsis Continue IMCU care, place on isolation, ID consult noted, patient is on IV daptomycin blood cultures with gram positive Multiple hx of MRSA, Multi organ Monitor uop q shift. ID recumbent because Synthroid Respiratory failure Supplemental oxygen, nebulizer therapy,pulse oximetry, Chest X ray, NIPPV UNABLE TO GET v/q scan Pulmonary following the patient Anemia of chronic disease Transfuse one unit PRBC hemoglobin is stable Seizure Continue current therapy, seizure precautions. UTI (urinary tract infection) IV antibiotic therapy, CBC, CMP, Urinalysis. BPH Continue Chaudhary catherter Dementia IVF resuscitation therapy, supportive care, treat sepsis. sacral pressure ulcer -infected. POA WOUND CARE CONSULT. CONTINUE ABX. Debridement done by Dr Man Amputation recommended and the daughter refused Orthopedics consulted for hip disarticulation but said transfer if needed The wound involved the bone and orthopedics consulted. DVT prophylaxis Current Visit: Yes Status: Acute Plan to address problem: SCD to BLE while in bed, Prophylactic lovenox POOR PROGNOSIS Disposition; Discussed with ethics committee. Treating the patient with antibiotics is futile and the best option is either palliative care or amputation which the daughter refused. Pending ethics committee meeting. ethics consult pending.... History Interval history: Review of systems Constitutional: No fevers, no malaise, no joint pains CVS: No chest pain, no orthopnea, no dyspnea on exertion, no pedal edema GI: No abdominal pain, no diarrhea, no vomiting, no constipation Respiratory: no wheezing, no coughing Hospitalist Physical - Physical exam Narrative exam: Not in cardiopulmonary distress. The patient appeared well nourished and normally developed. Vital signs as documented. Head exam is unremarkable. No scleral icterus . Neck is without jugular venous distension, thyromegaly, or carotid bruits. Lungs are clear to auscultation. Cardiac exam reveals regular rate and Rhythm. First and second heart sounds normal. No murmurs, rubs or gallops. Abdominal exam reveals normal bowel sounds, no masses, no organomegaly and no aortic enlargement. Extremities contracted extremities. 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 No focal weakness. Skin; multiple decubitus ulcers, including the sacrum and the heel. - Constitutional Vitals: Temp Pulse Resp BP Pulse Ox 99.2 F 100 H 18 124/71 97 11/10/18 09:48 11/10/18 09:48 11/10/18 09:48 11/10/18 09:48 11/10/18 09:48 General appearance: Present: no acute distress Results - Labs CBC & Chem 7: 11/06/18 05:42 11/06/18 05:42 Labs: Laboratory Last Values WBC 9.6 K/mm3 (4.5-11.0) 11/06/18 05:42 RBC 2.80 M/mm3 (3.65-5.03) L 11/06/18 05:42 Hgb 7.9 gm/dl (11.8-15.2) L 11/06/18 05:42 Hct 24.7 % (35.5-45.6) L 11/06/18 05:42 MCV 88 fl (84-94) 11/06/18 05:42 MCH 28 pg (28-32) 11/06/18 05:42 MCHC 32 % (32-34) 11/06/18 05:42 RDW 17.0 % (13.2-15.2) H 11/06/18 05:42 Plt Count 478 K/mm3 (140-440) H 11/06/18 05:42 Lymph % (Auto) 10.4 % (13.4-35.0) L 11/06/18 05:42 [place] % (Auto) 8.6 % (0.0-7.3) H 11/06/18 05:42 Eos % (Auto) 4.7 % (0.0-4.3) H 11/06/18 05:42 Baso % (Auto) 0.7 % (0.0-1.8) 11/06/18 05:42 Lymph # 1.0 K/mm3 (1.2-5.4) L 11/06/18 05:42 [place] # 0.8 K/mm3 (0.0-0.8) 11/06/18 05:42 Eos # 0.5 K/mm3 (0.0-0.4) H 11/06/18 05:42 Baso # 0.1 K/mm3 (0.0-0.1) 11/06/18 05:42 Seg Neutrophils % 75.6 % (40.0-70.0) H 11/06/18 05:42 Seg Neutrophils # 7.3 K/mm3 (1.8-7.7) 11/06/18 05:42 PT 16.3 Sec. (12.2-14.9) H 11/01/18 14:50 INR 1.35 (0.87-1.13) H 11/01/18 14:50 POC ABG pH 7.494 (7.35-7.45) H 11/01/18 15:27 POC ABG pCO2 34.5 (35-45) L 11/01/18 15:27 POC ABG pO2 139 (80-105) H 11/01/18 15:27 POC ABG HCO3 26.5 (22-26 mml/L) 11/01/18 15:27 POC ABG Total CO2 28 (23-27mmol/L) 11/01/18 15:27 POC ABG O2 Sat 99 11/01/18 15:27 POC ABG Base Excess 3 ((-2) - (+3)mmol/L) 11/01/18 15:27 VBG pH 7.499 (7.320-7.420) H 11/01/18 14:50 50 % 11/01/18 15:27 Sodium 149 mmol/L (137-145) H 11/06/18 05:42 Potassium 4.0 mmol/L (3.6-5.0) 11/06/18 05:42 Chloride 113.4 mmol/L (98-107) H 11/06/18 05:42 Carbon Dioxide 23 mmol/L (22-30) 11/06/18 05:42 17 mmol/L 11/06/18 05:42 BUN 50 mg/dL (9-20) H 11/06/18 05:42 1.1 mg/dL (0.8-1.5) 11/06/18 05:42 Estimated GFR > 60 ml/min 11/06/18 05:42 45 % 11/06/18 05:42 Glucose 121 mg/dL (75-100) H 11/06/18 05:42 Lactic Acid 1.80 mmol/L (0.7-2.0) 11/01/18 14:50 Calcium 8.6 mg/dL (8.4-10.2) 11/06/18 05:42 0.30 mg/dL (0.1-1.2) 11/01/18 14:50 AST 90 units/L (5-40) H 11/01/18 14:50 ALT 77 units/L (7-56) H 11/01/18 14:50 350 units/L (35-129) H 11/01/18 14:50 59 units/L (55-170) 11/09/18 04:57 NT-Pro-B Natriuret Pep 6776 pg/mL (0-900) H 11/01/18 14:50 7.9 g/dL (6.3-8.2) 11/01/18 14:50 1.6 g/dL (3.9-5) L 11/01/18 14:50 0.3 % 11/01/18 14:50 Yellow (Yellow) 11/01/18 15:57 Turbid (Clear) 11/01/18 15:57 6.0 (5.0-7.0) 11/01/18 15:57 Ur Specific [place] 1.016 (1.003-1.030) 11/01/18 15:57 100 mg/dl mg/dL (Negative) 11/01/18 15:57 Neg mg/dL (Negative) 11/01/18 15:57 Neg mg/dL (Negative) 11/01/18 15:57 Neg (Negative) 11/01/18 15:57 Neg (Negative) 11/01/18 15:57 Neg (Negative) 11/01/18 15:57 < 2.0 mg/dL (<2.0) 11/01/18 15:57 Ur Leukocyte Esterase Mod (Negative) 11/01/18 15:57 > 182.0 /HPF (0.0-6.0) H 11/01/18 15:57 40.0 /HPF (0.0-6.0) 11/01/18 15:57 U Epithel Cells (Auto) 8.0 /HPF (0-13.0) 11/01/18 15:57 3+ /HPF 11/01/18 15:57 3+ /HPF 11/01/18 15:57 Random Vancomycin 13.9 ug/mL (0-40.0) 11/02/18 05:05 Blood Type O POSITIVE 11/03/18 12:51 Antibody Screen Negative 11/03/18 12:51 Crossmatch See Detail 11/03/18 12:51 Active Medications - Current Medications Current Medications: Generic Name Dose Route Start Last Admin Trade Name Freq PRN Reason Stop Dose Admin Acetaminophen 650 mg 11/01/18 17:38 11/07/18 06:20 Tylenol FEEDTUBE 650 mg Q4H PRN Administration Pain, Moderate (4-6) Albuterol 2.5 mg 11/01/18 17:15 Proventil IH Q3HRT PRN Shortness Of Breath Albuterol/Ipratropium 1 ampul 11/09/18 20:00 11/10/18 07:58 Duoneb *Not For Prn Use* IH 1 ampul BIDRT NORA Administration Lipase/Protease/Amylase 1 each 11/03/18 17:12 Pancreazadela Moore 10,500 Unit FEEDTUBE PRN PRN For Clogged Feeding Tube Ascorbic Acid 500 mg 11/01/18 22:00 11/10/18 11:28 Vitamin C FEEDTUBE 500 mg BID NORA Administration Atorvastatin Calcium 40 mg 11/01/18 22:00 11/09/18 22:56 Lipitor FEEDTUBE 40 mg QHS NORA Administration Carvedilol 6.25 mg 11/08/18 13:00 11/10/18 11:27 Coreg PO 6.25 mg BID NORA Administration Clonidine HCl 0.2 mg 11/05/18 17:18 11/05/18 18:49 Catapres-Tts Patch TD 0.2 mg Tu NORA Administration Enoxaparin Sodium 40 mg 11/02/18 10:00 11/10/18 11:27 Lovenox SUB-Q 40 mg QDAY@1000 NORA Administration Daptomycin 400 mg/ Sodium 100 mls @ 200 mls/hr 11/09/18 21:00 11/09/18 21:40 Chloride IV Not Given Q24H [facility] Protocol Levetiracetam 500 mg 11/01/18 22:00 11/10/18 11:27 Keppra FEEDTUBE 500 mg BID NORA Administration Morphine Sulfate 2 mg 11/01/18 17:15 11/08/18 21:31 Morphine IV 2 mg Q4H PRN Administration Pain, Moderate (4-6) Multivitamins 5 ml 11/02/18 10:00 11/10/18 11:28 Centrum Liq FEEDTUBE 5 ml QDAY NORA Administration Simple Syrup 15 ml 11/03/18 17:12 Simple Syrup FEEDTUBE PRN PRN Hypoglycemia Simple Syrup 30 ml 11/03/18 17:12 Simple Syrup FEEDTUBE PRN PRN Hypoglycemia Sodium Bicarbonate 325 mg 11/03/18 17:12 Sodium Bicarbonate FEEDTUBE PRN PRN For Clogged Feeding Tube Sodium Chloride 10 ml 11/01/18 22:00 11/09/18 22:57 Sodium Chloride Flush Syringe 10 Ml IV 10 ml BID NORA Administration Sodium Chloride 10 ml 11/01/18 17:15 Sodium Chloride Flush Syringe 10 Ml IV PRN PRN LINE FLUSH Sodium Hypochlorite 1 applic 11/08/18 11:00 11/09/18 22:57 Dakin's Half Strength TP 1 applic BID NORA Administration Zinc Sulfate 220 mg 11/02/18 10:00 11/10/18 11:27 Zinc Sulfate PO 220 mg DAILY NORA Administration Nutrition/Malnutrition Assess - Dietary Evaluation Nutrition/Malnutrition Findings: Nutrition Notes Start: 11/04/18 16:00 Freq: Status: Active Protocol: Document 11/07/18 15:07 RM (Rec: 11/07/18 15:09 RM [id number]) Nutrition Notes Initial or Follow up Reassessment Current Diagnosis COPD,Diabetes,Sepsis, Hypertension,Heart Failure, Stroke Other Pertinent Diagnosis Sacral PUs, UTI, Dementia Current Diet Glucerna 1.2 at 60 ml/hr Labs/Tests Reviewed Pertinent Medications Reviewed Height 5 ft 8 in Weight 61.4 kg [place] Body Weight (kg) 70.00 BMI 20.5 Subjective/Other Information Observed Glucerna infusing at goal rate. Per nurse pt is tolerating TF. Percent of energy/protein needs met: 100%/100% Burn Absent Trauma Absent #1 Nutrition Diagnosis Inadequate oral intake Diagnosis Progress(for reassessment Continues documentation) Is patient on ventilator? No Is Patient Ambulatory and/or Out of Bed No REE-([place]-confined to bed) 3474.924 Calculation Used for Recommendations [facility] Additional Notes Protein Needs: 76-95g (1.2-1. 5g/kg) Fluid Needs: 1 ml/kcal Nutrition Intervention Nutrition Support: Glucerna at 60 ml/hr. Water flush of 100 mls q 4 hrs . Kcal 1,728 Protein (gm) 86 Fluid (mL) 1,159 Goal #1 TF tolerance Goal #2 Continue meet at least 75% of calorie and protein needs via TF Anticipated Discharge Needs: Unable to determine at this time Follow-Up By: 11/14/18 Additional Comments Follow for TF tolerance
--- NOTE | 2018-11-10 17:21 | Progress Note ---
Assessment and Plan Severe Sepsis Acute Hypoxemic Respiratory failure Anemia of chronic disease Seizure UTI (urinary tract infection) BPH Dementia sacral pressure ulcer -infected. POA - continue supplemental oxygen as needed to keep O2 sat's > 90% - continue bronchodilators with pulmonary hygiene per RT - continue AED's for seizure control - fall precautions - neurochecks - aspiration precautions - complete antibiotics per ID rec's - enteral nutrition as tolerated - continue wound care per WCT - continue bright catheter re: Obstructive Uropathy - GI & VTE prophylaxis - continue mobility protocol for pressure ulcer prophylaxis - continue other care per attending / other consultants ... re-evaluate in am & prn Subjective Date of service: 11/10/18 Principal diagnosis: Severe Sepsis; Ac. Hypoxemic Resp failure; Anemia; Seizure; UTI; BPH Interval history: Patient is seen today for: Severe Sepsis; Acute Hypoxemic Respiratory failure; Anemia of chronic disease; Seizure; UTI (urinary tract infection); BPH; Dementia; sacral pressure ulcer -infected. POA Seen and examined at bedside; 24-hour events reviewed; nursing and respiratory care staff consulted; no adverse overnight events reported to me; resting peacefully in bed; remains on supplemental oxygen; No emesis or overt aspirations; no high grade fevers Objective Vital Signs - 12hr 11/10/18 11/10/18 11/10/18 05:42 05:43 07:53 Temperature 99.2 F Pulse Rate 93 H Pulse Rate [ 96 H Bilateral Throughout] Respiratory 20 Rate Respiratory 18 Rate [Bilateral Throughout] Blood Pressure 121/47 O2 Sat by Pulse 95 Oximetry 11/10/18 11/10/18 08:03 09:48 Temperature 99.2 F Pulse Rate 100 H Pulse Rate [ 99 H Bilateral Throughout] Respiratory 18 Rate Respiratory 20 Rate [Bilateral Throughout] Blood Pressure 124/71 O2 Sat by Pulse 98 97 Oximetry Constitutional: no acute distress, alert, other (Patient weak and contacted) Eyes: non-icteric ENT: oropharynx moist Neck: supple, no lymphadenopathy, no JVD Effort: mildly labored Ascultation: Bilateral: diminished breath sounds, rhonchi Percussion: Bilateral: not dull Cardiovascular: regular rate and rhythm Gastrointestinal: normoactive bowel sounds, soft, non-tender, non-distended Integumentary: rash Extremities: no cyanosis, no edema, pulses normal, other (Patient has pressure ulcer at multiple areas, including sacral area.) Neurologic: non-focal exam, pupils equal and round, CN II-XII normal, other (+ contractures) Psychiatric: other (flat affect) CBC and BMP: 11/13/18 09:26 11/13/18 22:10 ABG, PT/INR, D-dimer: ABG POC ABG pH 7.494 (7.35-7.45) H 11/01/18 15:27 POC ABG pCO2 34.5 (35-45) L 11/01/18 15:27 POC ABG pO2 139 (80-105) H 11/01/18 15:27 POC ABG HCO3 26.5 (22-26 mml/L) 11/01/18 15:27 POC ABG Total CO2 28 (23-27mmol/L) 11/01/18 15:27 POC ABG O2 Sat 99 11/01/18 15:27 PT/INR, D-dimer PT 16.3 Sec. (12.2-14.9) H 11/01/18 14:50 INR 1.35 (0.87-1.13) H 11/01/18 14:50 Abnormal lab findings: Abnormal Labs 11/01/18 11/01/18 11/01/18 14:50 14:50 14:50 WBC 15.3 H RBC 2.76 L Hgb 7.9 L Hct 23.5 L MCH MCHC RDW 18.3 H Plt Count 567 H Lymph % (Auto) 6.5 L [place] % (Auto) 8.5 H Eos % (Auto) Lymph # 1.0 L [place] # 1.3 H Eos # Seg Neutrophils % 83.4 H Seg Neutrophils # 12.7 H PT 16.3 H INR 1.35 H POC ABG pH POC ABG pCO2 POC ABG pO2 VBG pH Sodium Chloride Carbon Dioxide BUN 49 H Glucose 132 H AST 90 H ALT 77 H Alkaline Phosphatase 350 H NT-Pro-B Natriuret Pep Albumin 1.6 L Urine WBC (Auto) Crossmatch 11/01/18 11/01/18 11/01/18 14:50 14:50 15:27 WBC RBC Hgb Hct MCH MCHC RDW Plt Count Lymph % (Auto) [place] % (Auto) Eos % (Auto) Lymph # [place] # Eos # Seg Neutrophils % Seg Neutrophils # PT INR POC ABG pH 7.494 H POC ABG pCO2 34.5 L POC ABG pO2 139 H VBG pH 7.499 H Sodium Chloride Carbon Dioxide BUN Glucose AST ALT Alkaline Phosphatase NT-Pro-B Natriuret Pep 6776 H Albumin Urine WBC (Auto) Crossmatch 11/01/18 11/03/18 11/03/18 15:57 03:41 03:41 WBC 12.8 H RBC 2.55 L Hgb 6.9 L Hct 22.2 L MCH 27 L MCHC 31 L RDW 17.9 H Plt Count 519 H Lymph % (Auto) [place] % (Auto) Eos % (Auto) Lymph # [place] # Eos # Seg Neutrophils % Seg Neutrophils # PT INR POC ABG pH POC ABG pCO2 POC ABG pO2 VBG pH Sodium 147 H Chloride 110.3 H Carbon Dioxide BUN 55 H Glucose AST ALT Alkaline Phosphatase NT-Pro-B Natriuret Pep Albumin Urine WBC (Auto) > 182.0 H Crossmatch 11/03/18 11/04/18 11/04/18 12:51 05:12 05:12 WBC 11.5 H RBC 2.94 L Hgb 8.3 L Hct 25.3 L MCH MCHC RDW 17.3 H Plt Count 514 H Lymph % (Auto) [place] % (Auto) Eos % (Auto) Lymph # [place] # Eos # Seg Neutrophils % Seg Neutrophils # PT INR POC ABG pH POC ABG pCO2 POC ABG pO2 VBG pH Sodium 147 H Chloride 112.4 H Carbon Dioxide BUN 52 H Glucose AST ALT Alkaline Phosphatase NT-Pro-B Natriuret Pep Albumin Urine WBC (Auto) Crossmatch See Detail 11/05/18 11/05/18 11/06/18 04:50 04:50 05:42 WBC RBC 3.03 L 2.80 L Hgb 8.7 L 7.9 L Hct 26.6 L 24.7 L MCH MCHC RDW 17.1 H 17.0 H Plt Count 502 H 478 H Lymph % (Auto) 10.4 L [place] % (Auto) 8.6 H Eos % (Auto) 4.7 H Lymph # 1.0 L [place] # Eos # 0.5 H Seg Neutrophils % 75.6 H Seg Neutrophils # PT INR POC ABG pH POC ABG pCO2 POC ABG pO2 VBG pH Sodium 149 H Chloride 114.4 H Carbon Dioxide 21 L BUN 50 H Glucose 108 H AST ALT Alkaline Phosphatase NT-Pro-B Natriuret Pep Albumin Urine WBC (Auto) Crossmatch 11/06/18 05:42 WBC RBC Hgb Hct MCH MCHC RDW Plt Count Lymph % (Auto) [place] % (Auto) Eos % (Auto) Lymph # [place] # Eos # Seg Neutrophils % Seg Neutrophils # PT INR POC ABG pH POC ABG pCO2 POC ABG pO2 VBG pH Sodium 149 H Chloride 113.4 H Carbon Dioxide BUN 50 H Glucose 121 H AST ALT Alkaline Phosphatase NT-Pro-B Natriuret Pep Albumin Urine WBC (Auto) Crossmatch Allied health notes reviewed: nursing
[2018-11-10] MEDS: NACL 0.9% IV SCH (20:58)
[2018-11-10] MEDS: DAPTOMYCIN IV SCH (20:58)
[2018-11-10] MEDS: SODIUM CHLORIDE FLUSH SYRINGE 10 ML IV SCH ×2 (20:59→23:08)
[2018-11-10] MEDS: DAKIN'S HALF STRENGTH TP SCH ×2 (23:00→23:08)
[2018-11-11] MEDS: DUONEB *Not for PRN Use IH SCH ×2 (08:39→21:06)
--- NOTE | 2018-11-11 12:00 | Progress Note ---
Assessment and Plan Cultures: Blood culture 10/01/2018 MRSA 2 of 4. Blood culture 10/03/2018 MRSA Blood culture 10/08/2018 no growth Blood culture 10/11/2018 no growth Blood culture 10/21/2018 no growth Blood culture 11/01/2018 Staph haemolyticus 2 of 4 bottles, resistent to methicillin and MRSA 1 of 4 bottles Blood culture 11/04/2018 no growth today Assessment: 67 y/o male with history of HTN, CVA, Obstructive Uropathy, Contracture, Multiple Decubitus Ulcers, [place], DM, OA, Seizure Disorder, COPD, Dementia, Debility, BPH, well known to ID due to multiple admissions secondary to ducubitus ulcers infections and recurrent bacteremia, last time admitted on 10/02/2018 found with MRSA bacteremia jessica from decubitus ulcers mainly active large left trochanteric with bone exposure and sacral with bone exposure. Patient's infection was deemed incurable and hospice was recommended. Patient was discharged back to [facility] on IV vancomycin 1 gm every 48 hours for total 6 weeks ending 11/12/2018 via neck tunneled cath. Patient was readmitted on due to AMS, worsening SOB. Patient is lethargic and unable to provide history. At the [facility] he was found to have respiratory distress upon evaluation the morning of admission,pulse oximetry in the 80's: 1) Severe Sepsis: improving: Etiology most likely Recurrent Staph bacteremia +/- CAUTI. 2) Staph haemolyticus and MRSA bacteremia with recent MRSA bacteremia: Blood culture 11/01/2018 Staph haemolyticus 2 of 4 bottles and MRSA 1 of 4. Source likely multiple decubitus ulcers or Neck IV central line. Patient is failing vancomycin. He has a tunneled neck cath. Recent TTE negative for vegetations. On daptomycin. 3) Recent septic shock due to polymicrobial bacteremia ESBL and carbapenem resistant E coli, MDR Proteus, Strep and E faecalis on 07/29/2018 probably from multiple infected decubitus ulcers and less likely UTI. Repeat blood cultures 07/31/2018 showed same MDR E coli 1 of 4 bottles then 08/06/2018 blood cultures showed no growth. Patient was treated with Vabomere for 14 days. 4) Multiple infected decubitus ulcers: His prognosis has been poor and hospice has been recommended several times in the past but family has declined. declined. His wounds are not curable considering his contractures, bed bound status and poor nutritional status. There was also suspicion of septic arthritis of left hip from decubitus ulcer. S/p debridement of multiple pressure ulcerations on 11/07/2018- stage 4 left hip pressure ulceration was surgically excisionally debrided of necrotic bone, stage 3 sacral, right ankle and left heel pressure ulcers were then surgically, excisionally debrided of necrotic SQ fat, stage 4 right heel, left lateral heel and right lateral leg ulcerations were surgically, excisionally debrided of necrotic SQ tissue, muscle and fascia. Dr Man recommended bilateral AKA, patient and daughter refused. Dr Man recommended Orthopedic consultation for possible left hip disarticulation as his left hip joint is crumbling and has profuse purulent drainage. 5) Recurrent UTI: patient's bright was removed home 2 weeks ago, a new bright placed here 6) Acute encephalopathy: multifactorial. 7) Acute resp failure: was on BIPAP now NC O2. EF 30-35% pericaldial and pleural effusion. Recommendations: - agree with Ethics committee consultation as this infection is incurable failing multiple courses of IV antibiotics and evidence of worsening infection. Patient and daughter refusing amputation. - remove neck central line - pending - extensive discussion with daughter done on 11/04 regarding futility of antibiotic therapy as his wound infection is incurable. Patient is at risk for recurrent bacteremia, antibiotics side effects including C diff, nephrotoxicity and others. Wound is not healing due to MDR infection, severe contractures, malnutrition and multiple comorbilities. Daughter wants to honor his wishes but she understands he is sick. Refused hospice. - continue daptomycin IV for now D9 - always contact isolation - at discharge will do daptomycin 400 mg IV q day for 6 weeks until 12/16/2018 Grim prognosis. Discussed with Dr Irving Will follow. Penny Bernardo MD Infectious Diseases Public Relations Specialist [facility], [place], [facility] ([facility]) M [phone] Subjective Date of service: 11/11/18 Principal diagnosis: Severe Sepsis; Ac. Hypoxemic Resp failure; Anemia; Seizure; UTI; BPH Interval history: Patient feels sick, in pain, tmax 100 Objective - Exam Narrative Exam: General appearance: alert in NAD Eyes: anicteric sclerae, moist conjunctivae; no lid-lag; PERRLA HENT: Atraumatic; oropharynx limited Neck: Trachea midline; supple, no thyromegaly or lymphadenopathy Lungs: CTA CV: RRR no murmur Abdomen: Soft, non-tender Extremities: marked legs contractions, multiple decubitus ulcers covered with dressings Skin: multiple skin tears Psych: no agitated. Neuro: alert - Constitutional Vitals: Vital Signs Temp Pulse Resp BP Pulse Ox 99.6 F 82 16 151/65 95 11/11/18 04:28 11/11/18 08:47 11/11/18 08:47 11/11/18 04:28 11/11/18 08:39 Temperature -Last 24 Hours Temperature 99.6 F Temperature 98.7 F Temperature 98.1 F Temperature 100.1 F - Labs CBC & Chem 7: 11/06/18 05:42 11/06/18 05:42
[2018-11-11] MEDS: ZINC SULFATE PO SCH (12:01)
[2018-11-11] MEDS: KEPPRA FEEDTUBE SCH ×2 (12:01→21:22)
[2018-11-11] MEDS: LOVENOX SUB-Q SCH (12:01)
[2018-11-11] MEDS: DAKIN'S HALF STRENGTH TP SCH ×2 (12:02→21:29)
[2018-11-11] MEDS: COREG PO SCH ×2 (12:02→21:23)
[2018-11-11] MEDS: VITAMIN C FEEDTUBE SCH ×2 (12:02→21:23)
[2018-11-11] MEDS: Centrum Liq FEEDTUBE SCH (12:03)
[2018-11-11] MEDS: SODIUM CHLORIDE FLUSH SYRINGE 10 ML IV SCH ×2 (12:03→21:24)
--- NOTE | 2018-11-11 13:25 | Progress Note ---
Assessment and Plan Patient weak and contracted. Patient resting on 3L O2. No acute respiratory distress. O2 sat 95%. Patient following simple commands. - Patient Problems (1) Respiratory failure Current Visit: Yes Status: Acute Qualifiers: Chronicity: acute Respiratory failure complication: hypoxia Qualified Code(s): J96.01 - Acute respiratory failure with hypoxia Plan to address problem: Continue O2 supplementation. Albuterol and Atrovent treatment q6h. Patient is on Diptomycine. Continue SQ Levonox. Recommend GI prophylexis. (2) Seizure Current Visit: Yes Status: Acute Plan to address problem: Management as per neurologist. (3) Sepsis Current Visit: Yes Status: Acute Plan to address problem: Patient is on Daptomycine. (4) UTI (urinary tract infection) Current Visit: Yes Status: Acute Qualifiers: Encounter type: initial encounter Plan to address problem: Patient is on Daptomycine. (5) ARF (acute renal failure) with tubular necrosis Current Visit: No Status: Acute Plan to address problem: Management as per Nephrology. Subjective Date of service: 11/11/18 Principal diagnosis: Severe Sepsis; Ac. Hypoxemic Resp failure; Anemia; Seizure; UTI; BPH Interval history: Patient weak and contracted. Patient resting on 3L O2. No acute respiratory distress. O2 sat 95%. Patient following simple commands. Objective Vital Signs - 12hr 11/11/18 11/11/18 11/11/18 04:28 08:39 08:47 Temperature 99.6 F Pulse Rate 95 H Pulse Rate [ 94 H 82 Bilateral Throughout] Respiratory 24 Rate Respiratory 18 16 Rate [Bilateral Throughout] Blood Pressure 151/65 [Left] O2 Sat by Pulse 94 95 Oximetry Constitutional: no acute distress, alert, other (Patient weak and contacted) Eyes: non-icteric ENT: oropharynx moist Neck: supple, no lymphadenopathy, no JVD Effort: mildly labored Ascultation: Bilateral: diminished breath sounds, rhonchi Percussion: Bilateral: not dull Cardiovascular: regular rate and rhythm Gastrointestinal: normoactive bowel sounds, soft, non-tender, non-distended Integumentary: rash Extremities: no cyanosis, no edema, pulses normal, other (Patient has pressure ulcer at multiple areas, including sacral area.) Neurologic: non-focal exam, pupils equal and round, CN II-XII normal, other (+ contractures) Psychiatric: other (flat affect) CBC and BMP: 11/06/18 05:42 11/06/18 05:42 ABG, PT/INR, D-dimer: ABG POC ABG pH 7.494 (7.35-7.45) H 11/01/18 15:27 POC ABG pCO2 34.5 (35-45) L 11/01/18 15:27 POC ABG pO2 139 (80-105) H 11/01/18 15:27 POC ABG HCO3 26.5 (22-26 mml/L) 11/01/18 15:27 POC ABG Total CO2 28 (23-27mmol/L) 11/01/18 15:27 POC ABG O2 Sat 99 11/01/18 15:27 PT/INR, D-dimer PT 16.3 Sec. (12.2-14.9) H 11/01/18 14:50 INR 1.35 (0.87-1.13) H 11/01/18 14:50 Abnormal lab findings: Abnormal Labs 11/01/18 11/01/18 11/01/18 14:50 14:50 14:50 WBC 15.3 H RBC 2.76 L Hgb 7.9 L Hct 23.5 L MCH MCHC RDW 18.3 H Plt Count 567 H Lymph % (Auto) 6.5 L [place] % (Auto) 8.5 H Eos % (Auto) Lymph # 1.0 L [place] # 1.3 H Eos # Seg Neutrophils % 83.4 H Seg Neutrophils # 12.7 H PT 16.3 H INR 1.35 H POC ABG pH POC ABG pCO2 POC ABG pO2 VBG pH Sodium Chloride Carbon Dioxide BUN 49 H Glucose 132 H AST 90 H ALT 77 H Alkaline Phosphatase 350 H NT-Pro-B Natriuret Pep Albumin 1.6 L Urine WBC (Auto) Crossmatch 11/01/18 11/01/18 11/01/18 14:50 14:50 15:27 WBC RBC Hgb Hct MCH MCHC RDW Plt Count Lymph % (Auto) [place] % (Auto) Eos % (Auto) Lymph # [place] # Eos # Seg Neutrophils % Seg Neutrophils # PT INR POC ABG pH 7.494 H POC ABG pCO2 34.5 L POC ABG pO2 139 H VBG pH 7.499 H Sodium Chloride Carbon Dioxide BUN Glucose AST ALT Alkaline Phosphatase NT-Pro-B Natriuret Pep 6776 H Albumin Urine WBC (Auto) Crossmatch 11/01/18 11/03/18 11/03/18 15:57 03:41 03:41 WBC 12.8 H RBC 2.55 L Hgb 6.9 L Hct 22.2 L MCH 27 L MCHC 31 L RDW 17.9 H Plt Count 519 H Lymph % (Auto) [place] % (Auto) Eos % (Auto) Lymph # [place] # Eos # Seg Neutrophils % Seg Neutrophils # PT INR POC ABG pH POC ABG pCO2 POC ABG pO2 VBG pH Sodium 147 H Chloride 110.3 H Carbon Dioxide BUN 55 H Glucose AST ALT Alkaline Phosphatase NT-Pro-B Natriuret Pep Albumin Urine WBC (Auto) > 182.0 H Crossmatch 11/03/18 11/04/18 11/04/18 12:51 05:12 05:12 WBC 11.5 H RBC 2.94 L Hgb 8.3 L Hct 25.3 L MCH MCHC RDW 17.3 H Plt Count 514 H Lymph % (Auto) [place] % (Auto) Eos % (Auto) Lymph # [place] # Eos # Seg Neutrophils % Seg Neutrophils # PT INR POC ABG pH POC ABG pCO2 POC ABG pO2 VBG pH Sodium 147 H Chloride 112.4 H Carbon Dioxide BUN 52 H Glucose AST ALT Alkaline Phosphatase NT-Pro-B Natriuret Pep Albumin Urine WBC (Auto) Crossmatch See Detail 11/05/18 11/05/18 11/06/18 04:50 04:50 05:42 WBC RBC 3.03 L 2.80 L Hgb 8.7 L 7.9 L Hct 26.6 L 24.7 L MCH MCHC RDW 17.1 H 17.0 H Plt Count 502 H 478 H Lymph % (Auto) 10.4 L [place] % (Auto) 8.6 H Eos % (Auto) 4.7 H Lymph # 1.0 L [place] # Eos # 0.5 H Seg Neutrophils % 75.6 H Seg Neutrophils # PT INR POC ABG pH POC ABG pCO2 POC ABG pO2 VBG pH Sodium 149 H Chloride 114.4 H Carbon Dioxide 21 L BUN 50 H Glucose 108 H AST ALT Alkaline Phosphatase NT-Pro-B Natriuret Pep Albumin Urine WBC (Auto) Crossmatch 11/06/18 05:42 WBC RBC Hgb Hct MCH MCHC RDW Plt Count Lymph % (Auto) [place] % (Auto) Eos % (Auto) Lymph # [place] # Eos # Seg Neutrophils % Seg Neutrophils # PT INR POC ABG pH POC ABG pCO2 POC ABG pO2 VBG pH Sodium 149 H Chloride 113.4 H Carbon Dioxide BUN 50 H Glucose 121 H AST ALT Alkaline Phosphatase NT-Pro-B Natriuret Pep Albumin Urine WBC (Auto) Crossmatch Allied health notes reviewed: nursing
--- NOTE | 2018-11-11 14:53 | Progress Note ---
Assessment and Plan Assessment and plan: 67 YO Male Shelter Facility Resident as [facility] with HTN, CVA, Obstructive Uropathy, Diastolic CHF, Contracture, Sacral Decubitus Ulcers, OK, DM, OA, Seizure Disorder, COPD, Dementia, BPH presents to ED for evaluation. Pt is stuporous and unable to provide history. Pt history taken from ED Staff, EMS, and SNF Staff. As per staff, the patient was found to have respiratory distress upon evaluation this morning. Pt found to have pulse oximetry in the 80's. EMS notified and patient subsequently transported to [facility] for further care and evaluation. Pt seen and evaluated in ED and found to have UTI, Sepsis, Encephalopathy as well as Acute Hypoxemic Respiratory Failure. Pt initiated on NIPPV in ED with improvement in symptoms. Pt admitted to [facility] and initiated on Sepsis protocol. Prior admission on 10/01/18 reviewed. Extensive discussion with family about patients poor prognosis surgery consulted for possible debridment ID following, Pulmonary status improved Continue isolation care Chaudhary placed by Urology please do not remove Sepsis/UTI, Infected decub on sacrum POA- infection involves bone cont abx per ID sacral pressure ulcer -infected. POA WOUND CARE CONSULT. CONTINUE ABX. Debridement done by Dr Man Amputation recommended and the daughter refused Respiratory failure Supplemental oxygen, nebulizer therapy, mgt per pulmonology Anemia of chronic disease Transfused one unit PRBC hemoglobin is stable Seizure Continue current therapy, seizure precautions. BPH Continue Chaudhary catherter Dementia supportive care DVT prophylaxis Prophylactic lovenox POOR PROGNOSIS Disposition; Discussed with ethics committee. Treating the patient with an tibiotics is futile and the best option is either palliative care or amputation which the daughter refused. Pending ethics committee meeting. ethics consult pending.... History Interval history: Review of systems Constitutional: No fevers, no malaise, no joint pains CVS: No chest pain, no orthopnea, no dyspnea on exertion, no pedal edema GI: No abdominal pain, no diarrhea, no vomiting, no constipation Respiratory: no wheezing, no coughing Hospitalist Physical - Physical exam Narrative exam: Not in cardiopulmonary distress. The patient appeared well nourished and normally developed. Vital signs as documented. Head exam is unremarkable. No scleral icterus . Neck is without jugular venous distension, thyromegaly, or carotid bruits. Lungs are clear to auscultation. Cardiac exam reveals regular rate and Rhythm. First and second heart sounds normal. No murmurs, rubs or gallops. Abdominal exam reveals normal bowel sounds, no masses, no organomegaly and no aortic enlargement. Extremities contracted extremities. PROVIDER RELATIONS ADVOCATE: Alert and oriented 3. No focal weakness. Skin; multiple decubitus ulcers, including the sacrum and the heel. - Constitutional Vitals: Temp Pulse Resp BP Pulse Ox 99.6 F 82 16 151/65 95 11/11/18 04:28 11/11/18 08:47 11/11/18 08:47 11/11/18 04:28 11/11/18 08:39 General appearance: Present: no acute distress Results - Labs CBC & Chem 7: 11/06/18 05:42 11/06/18 05:42 Labs: Laboratory Last Values WBC 9.6 K/mm3 (4.5-11.0) 11/06/18 05:42 RBC 2.80 M/mm3 (3.65-5.03) L 11/06/18 05:42 Hgb 7.9 gm/dl (11.8-15.2) L 11/06/18 05:42 Hct 24.7 % (35.5-45.6) L 11/06/18 05:42 MCV 88 fl (84-94) 11/06/18 05:42 MCH 28 pg (28-32) 11/06/18 05:42 MCHC 32 % (32-34) 11/06/18 05:42 RDW 17.0 % (13.2-15.2) H 11/06/18 05:42 Plt Count 478 K/mm3 (140-440) H 11/06/18 05:42 Lymph % (Auto) 10.4 % (13.4-35.0) L 11/06/18 05:42 [place] % (Auto) 8.6 % (0.0-7.3) H 11/06/18 05:42 Eos % (Auto) 4.7 % (0.0-4.3) H 11/06/18 05:42 Baso % (Auto) 0.7 % (0.0-1.8) 11/06/18 05:42 Lymph # 1.0 K/mm3 (1.2-5.4) L 11/06/18 05:42 [place] # 0.8 K/mm3 (0.0-0.8) 11/06/18 05:42 Eos # 0.5 K/mm3 (0.0-0.4) H 11/06/18 05:42 Baso # 0.1 K/mm3 (0.0-0.1) 11/06/18 05:42 Seg Neutrophils % 75.6 % (40.0-70.0) H 11/06/18 05:42 Seg Neutrophils # 7.3 K/mm3 (1.8-7.7) 11/06/18 05:42 PT 16.3 Sec. (12.2-14.9) H 11/01/18 14:50 INR 1.35 (0.87-1.13) H 11/01/18 14:50 POC ABG pH 7.494 (7.35-7.45) H 11/01/18 15:27 POC ABG pCO2 34.5 (35-45) L 11/01/18 15:27 POC ABG pO2 139 (80-105) H 11/01/18 15:27 POC ABG HCO3 26.5 (22-26 mml/L) 11/01/18 15:27 POC ABG Total CO2 28 (23-27mmol/L) 11/01/18 15:27 POC ABG O2 Sat 99 11/01/18 15:27 POC ABG Base Excess 3 ((-2) - (+3)mmol/L) 11/01/18 15:27 VBG pH 7.499 (7.320-7.420) H 11/01/18 14:50 50 % 11/01/18 15:27 Sodium 149 mmol/L (137-145) H 11/06/18 05:42 Potassium 4.0 mmol/L (3.6-5.0) 11/06/18 05:42 Chloride 113.4 mmol/L (98-107) H 11/06/18 05:42 Carbon Dioxide 23 mmol/L (22-30) 11/06/18 05:42 17 mmol/L 11/06/18 05:42 BUN 50 mg/dL (9-20) H 11/06/18 05:42 1.1 mg/dL (0.8-1.5) 11/06/18 05:42 Estimated GFR > 60 ml/min 11/06/18 05:42 45 % 11/06/18 05:42 Glucose 121 mg/dL (75-100) H 11/06/18 05:42 Lactic Acid 1.80 mmol/L (0.7-2.0) 11/01/18 14:50 Calcium 8.6 mg/dL (8.4-10.2) 11/06/18 05:42 0.30 mg/dL (0.1-1.2) 11/01/18 14:50 AST 90 units/L (5-40) H 11/01/18 14:50 ALT 77 units/L (7-56) H 11/01/18 14:50 350 units/L (35-129) H 11/01/18 14:50 59 units/L (55-170) 11/09/18 04:57 NT-Pro-B Natriuret Pep 6776 pg/mL (0-900) H 11/01/18 14:50 7.9 g/dL (6.3-8.2) 11/01/18 14:50 1.6 g/dL (3.9-5) L 11/01/18 14:50 0.3 % 11/01/18 14:50 Yellow (Yellow) 11/01/18 15:57 Turbid (Clear) 11/01/18 15:57 6.0 (5.0-7.0) 11/01/18 15:57 Ur Specific [place] 1.016 (1.003-1.030) 11/01/18 15:57 100 mg/dl mg/dL (Negative) 11/01/18 15:57 Neg mg/dL (Negative) 11/01/18 15:57 Neg mg/dL (Negative) 11/01/18 15:57 Neg (Negative) 11/01/18 15:57 Neg (Negative) 11/01/18 15:57 Neg (Negative) 11/01/18 15:57 < 2.0 mg/dL (<2.0) 11/01/18 15:57 Ur Leukocyte Esterase Mod (Negative) 11/01/18 15:57 > 182.0 /HPF (0.0-6.0) H 11/01/18 15:57 40.0 /HPF (0.0-6.0) 11/01/18 15:57 U Epithel Cells (Auto) 8.0 /HPF (0-13.0) 11/01/18 15:57 3+ /HPF 11/01/18 15:57 3+ /HPF 11/01/18 15:57 Random Vancomycin 13.9 ug/mL (0-40.0) 11/02/18 05:05 Blood Type O POSITIVE 11/03/18 12:51 Antibody Screen Negative 11/03/18 12:51 Crossmatch See Detail 11/03/18 12:51 Active Medications - Current Medications Current Medications: Generic Name Dose Route Start Last Admin Trade Name Freq PRN Reason Stop Dose Admin Acetaminophen 650 mg 11/01/18 17:38 11/07/18 06:20 Tylenol FEEDTUBE 650 mg Q4H PRN Administration Pain, Moderate (4-6) Albuterol 2.5 mg 11/01/18 17:15 Proventil IH Q3HRT PRN Shortness Of Breath Albuterol/Ipratropium 1 ampul 11/09/18 20:00 11/11/18 08:39 Duoneb *Not For Prn Use* IH 1 ampul BIDRT NORA Administration Lipase/Protease/Amylase 1 each 11/03/18 17:12 Pancreaze 10,500 Unit FEEDTUBE PRN PRN For Clogged Feeding Tube Ascorbic Acid 500 mg 11/01/18 22:00 11/11/18 12:02 Vitamin C FEEDTUBE 500 mg BID NORA Administration Atorvastatin Calcium 40 mg 11/01/18 22:00 11/10/18 22:58 Lipitor FEEDTUBE 40 mg QHS NORA Administration Carvedilol 6.25 mg 11/08/18 13:00 11/11/18 12:02 Coreg PO 6.25 mg BID NORA Administration Clonidine HCl 0.2 mg 11/05/18 17:18 11/05/18 18:49 Catapres-Tts Patch TD 0.2 mg Tu NORA Administration Enoxaparin Sodium 40 mg 11/02/18 10:00 11/11/18 12:01 Lovenox SUB-Q 40 mg QDAY@1000 NORA Administration Daptomycin 400 mg/ Sodium 100 mls @ 200 mls/hr 11/09/18 21:00 11/10/18 20:58 Chloride IV 200 mls/hr Q24H NORA Administration Protocol Levetiracetam 500 mg 11/01/18 22:00 11/11/18 12:01 Keppra FEEDTUBE 500 mg BID NORA Administration Morphine Sulfate 2 mg 11/01/18 17:15 11/08/18 21:31 Morphine IV 2 mg Q4H PRN Administration Pain, Moderate (4-6) Multivitamins 5 ml 11/02/18 10:00 11/11/18 12:03 Centrum Liq FEEDTUBE 5 ml QDAY NORA Administration Simple Syrup 15 ml 11/03/18 17:12 Simple Syrup FEEDTUBE PRN PRN Hypoglycemia Simple Syrup 30 ml 11/03/18 17:12 Simple Syrup FEEDTUBE PRN PRN Hypoglycemia Sodium Bicarbonate 325 mg 11/03/18 17:12 Sodium Bicarbonate FEEDTUBE PRN PRN For Clogged Feeding Tube Sodium Chloride 10 ml 11/01/18 22:00 11/11/18 12:03 Sodium Chloride Flush Syringe 10 Ml IV 10 ml BID NORA Administration Sodium Chloride 10 ml 11/01/18 17:15 Sodium Chloride Flush Syringe 10 Ml IV PRN PRN LINE FLUSH Sodium Hypochlorite 1 applic 11/08/18 11:00 11/11/18 12:02 Dakin's Half Strength TP 1 applic BID NORA Administration Zinc Sulfate 220 mg 11/02/18 10:00 11/11/18 12:01 Zinc Sulfate PO 220 mg DAILY NORA Administration Nutrition/Malnutrition Assess - Dietary Evaluation Nutrition/Malnutrition Findings: Nutrition Notes Start: 11/04/18 16:00 Freq: Status: Active Protocol: Document 11/07/18 15:07 (Rec: 11/07/18 15:09 [id number]) Nutrition Notes Initial or Follow up Reassessment Current Diagnosis COPD,Diabetes,Sepsis, Hypertension,Heart Failure, Stroke Other Pertinent Diagnosis Sacral PUs, UTI, Dementia Current Diet Glucerna 1.2 at 60 ml/hr Labs/Tests Reviewed Pertinent Medications Reviewed Height 5 ft 8 in Weight 61.4 kg [place] Body Weight (kg) 70.00 BMI 20.5 Subjective/Other Information Observed Glucerna infusing at goal rate. Per nurse pt is tolerating TF. Percent of energy/protein needs met: 100%/100% Burn Absent Trauma Absent #1 Nutrition Diagnosis Inadequate oral intake Diagnosis Progress(for reassessment Continues documentation) Is patient on ventilator? No Is Patient Ambulatory and/or Out of Bed No REE-([facility]-confined to bed) 1320.072 Calculation Used for Recommendations [facility] Additional Notes Protein Needs: 76-95g (1.2-1. 5g/kg) Fluid Needs: 1 ml/kcal Nutrition Intervention Nutrition Support: Glucerna at 60 ml/hr. Water flush of 100 mls q 4 hrs . Kcal 1,728 Protein (gm) 86 Fluid (mL) 1,159 Goal #1 TF tolerance Goal #2 Continue meet at least 75% of calorie and protein needs via TF Anticipated Discharge Needs: Unable to determine at this time Follow-Up By: 11/14/18 Additional Comments Follow for TF tolerance
[2018-11-11] MEDS: NACL 0.9% IV SCH (21:21)
[2018-11-11] MEDS: DAPTOMYCIN IV SCH (21:21)
[2018-11-11] MEDS: TYLENOL FEEDTUBE PRN (21:22)
[2018-11-12] MEDS: DUONEB *Not for PRN Use IH SCH ×2 (08:38→20:00)
[2018-11-12] MEDS: LOVENOX SUB-Q SCH (11:08)
[2018-11-12] MEDS: KEPPRA FEEDTUBE SCH ×2 (11:08→22:33)
[2018-11-12] MEDS: VITAMIN C FEEDTUBE SCH ×2 (11:08→22:33)
[2018-11-12] MEDS: COREG PO SCH ×2 (11:08→22:33)
[2018-11-12] MEDS: Centrum Liq FEEDTUBE SCH (11:09)
[2018-11-12] MEDS: DAKIN'S HALF STRENGTH TP SCH ×2 (11:09→22:34)
[2018-11-12] MEDS: SODIUM CHLORIDE FLUSH SYRINGE 10 ML IV SCH ×2 (11:11→22:33)
[2018-11-12] MEDS: ZINC SULFATE PO SCH (11:11)
--- NOTE | 2018-11-12 13:42 | Progress Note ---
Assessment and Plan Patient weak and contracted. Patient sleeping on 3L O2. No acute respiratory distress. O2 sat 98%. - Patient Problems (1) Respiratory failure Current Visit: Yes Status: Acute Qualifiers: Chronicity: acute Respiratory failure complication: hypoxia Qualified Code(s): J96.01 - Acute respiratory failure with hypoxia Plan to address problem: Continue O2 supplementation. Albuterol and Atrovent treatment q6h. Patient is on Diptomycine as per infectious diseases. Continue SQ Levonox. Recommend GI prophylexis. (2) Seizure Current Visit: Yes Status: Acute Plan to address problem: Management as per neurologist. (3) Sepsis Current Visit: Yes Status: Acute Plan to address problem: Patient is on Daptomycine as per infectious diseases. (4) UTI (urinary tract infection) Current Visit: Yes Status: Acute Qualifiers: Encounter type: initial encounter Plan to address problem: Patient is on Daptomycine as per infectious diseases. (5) ARF (acute renal failure) with tubular necrosis Current Visit: No Status: Acute Plan to address problem: Management as per Nephrology. Subjective Date of service: 11/12/18 Principal diagnosis: Severe Sepsis; Ac. Hypoxemic Resp failure; Anemia; Seizure; UTI; BPH Interval history: Patient weak and contracted. Patient sleeping on 3L O2. No acute respiratory distress. O2 sat 98%. Objective Vital Signs - 12hr 11/12/18 11/12/18 11/12/18 04:45 08:10 10:00 Temperature 99.0 F 98.2 F Pulse Rate 90 90 92 H Respiratory 20 16 Rate Blood Pressure 145/88 145/71 O2 Sat by Pulse 97 99 Oximetry 11/12/18 11/12/18 11:08 11:31 Temperature 98.9 F Pulse Rate 90 96 H Respiratory 16 Rate Blood Pressure 145/71 140/87 O2 Sat by Pulse 98 Oximetry Constitutional: no acute distress, asleep, other (Patient weak and contacted) Eyes: non-icteric ENT: oropharynx moist Neck: supple, no lymphadenopathy, no JVD Effort: mildly labored Ascultation: Bilateral: diminished breath sounds, rhonchi Percussion: Bilateral: not dull Cardiovascular: regular rate and rhythm Gastrointestinal: normoactive bowel sounds, soft, non-tender, non-distended Integumentary: rash Extremities: no cyanosis, no edema, pulses normal, other (Patient has pressure ulcer at multiple areas, including sacral area.) Neurologic: non-focal exam, pupils equal and round, CN II-XII normal, other (+ contractures) Psychiatric: other (flat affect) CBC and BMP: 11/06/18 05:42 11/06/18 05:42 ABG, PT/INR, D-dimer: ABG POC ABG pH 7.494 (7.35-7.45) H 11/01/18 15:27 POC ABG pCO2 34.5 (35-45) L 11/01/18 15:27 POC ABG pO2 139 (80-105) H 11/01/18 15:27 POC ABG HCO3 26.5 (22-26 mml/L) 11/01/18 15:27 POC ABG Total CO2 28 (23-27mmol/L) 11/01/18 15:27 POC ABG O2 Sat 99 11/01/18 15:27 PT/INR, D-dimer PT 16.3 Sec. (12.2-14.9) H 11/01/18 14:50 INR 1.35 (0.87-1.13) H 11/01/18 14:50 Abnormal lab findings: Abnormal Labs 11/01/18 11/01/18 11/01/18 14:50 14:50 14:50 WBC 15.3 H RBC 2.76 L Hgb 7.9 L Hct 23.5 L MCH MCHC RDW 18.3 H Plt Count 567 H Lymph % (Auto) 6.5 L [place] % (Auto) 8.5 H Eos % (Auto) Lymph # 1.0 L [place] # 1.3 H Eos # Seg Neutrophils % 83.4 H Seg Neutrophils # 12.7 H PT 16.3 H INR 1.35 H POC ABG pH POC ABG pCO2 POC ABG pO2 VBG pH Sodium Chloride Carbon Dioxide BUN 49 H Glucose 132 H POC Glucose AST 90 H ALT 77 H Alkaline Phosphatase 350 H NT-Pro-B Natriuret Pep Albumin 1.6 L Urine WBC (Auto) Crossmatch 11/01/18 11/01/18 11/01/18 14:50 14:50 15:27 WBC RBC Hgb Hct MCH MCHC RDW Plt Count Lymph % (Auto) [place] % (Auto) Eos % (Auto) Lymph # [place] # Eos # Seg Neutrophils % Seg Neutrophils # PT INR POC ABG pH 7.494 H POC ABG pCO2 34.5 L POC ABG pO2 139 H VBG pH 7.499 H Sodium Chloride Carbon Dioxide BUN Glucose POC Glucose AST ALT Alkaline Phosphatase NT-Pro-B Natriuret Pep 6776 H Albumin Urine WBC (Auto) Crossmatch 11/01/18 11/03/18 11/03/18 15:57 03:41 03:41 WBC 12.8 H RBC 2.55 L Hgb 6.9 L Hct 22.2 L MCH 27 L MCHC 31 L RDW 17.9 H Plt Count 519 H Lymph % (Auto) [place] % (Auto) Eos % (Auto) Lymph # [place] # Eos # Seg Neutrophils % Seg Neutrophils # PT INR POC ABG pH POC ABG pCO2 POC ABG pO2 VBG pH Sodium 147 H Chloride 110.3 H Carbon Dioxide BUN 55 H Glucose POC Glucose AST ALT Alkaline Phosphatase NT-Pro-B Natriuret Pep Albumin Urine WBC (Auto) > 182.0 H Crossmatch 11/03/18 11/04/18 11/04/18 12:51 05:12 05:12 WBC 11.5 H RBC 2.94 L Hgb 8.3 L Hct 25.3 L MCH MCHC RDW 17.3 H Plt Count 514 H Lymph % (Auto) [place] % (Auto) Eos % (Auto) Lymph # [place] # Eos # Seg Neutrophils % Seg Neutrophils # PT INR POC ABG pH POC ABG pCO2 POC ABG pO2 VBG pH Sodium 147 H Chloride 112.4 H Carbon Dioxide BUN 52 H Glucose POC Glucose AST ALT Alkaline Phosphatase NT-Pro-B Natriuret Pep Albumin Urine WBC (Auto) Crossmatch See Detail 11/05/18 11/05/18 11/06/18 04:50 04:50 05:42 WBC RBC 3.03 L 2.80 L Hgb 8.7 L 7.9 L Hct 26.6 L 24.7 L MCH MCHC RDW 17.1 H 17.0 H Plt Count 502 H 478 H Lymph % (Auto) 10.4 L [place] % (Auto) 8.6 H Eos % (Auto) 4.7 H Lymph # 1.0 L [place] # Eos # 0.5 H Seg Neutrophils % 75.6 H Seg Neutrophils # PT INR POC ABG pH POC ABG pCO2 POC ABG pO2 VBG pH Sodium 149 H Chloride 114.4 H Carbon Dioxide 21 L BUN 50 H Glucose 108 H POC Glucose AST ALT Alkaline Phosphatase NT-Pro-B Natriuret Pep Albumin Urine WBC (Auto) Crossmatch 11/06/18 11/11/18 11/12/18 05:42 18:54 00:22 WBC RBC Hgb Hct MCH MCHC RDW Plt Count Lymph % (Auto) [place] % (Auto) Eos % (Auto) Lymph # [place] # Eos # Seg Neutrophils % Seg Neutrophils # PT INR POC ABG pH POC ABG pCO2 POC ABG pO2 VBG pH Sodium 149 H Chloride 113.4 H Carbon Dioxide BUN 50 H Glucose 121 H POC Glucose 114 H 123 H AST ALT Alkaline Phosphatase NT-Pro-B Natriuret Pep Albumin Urine WBC (Auto) Crossmatch 11/12/18 11/12/18 06:49 11:35 WBC RBC Hgb Hct MCH MCHC RDW Plt Count Lymph % (Auto) [place] % (Auto) Eos % (Auto) Lymph # [place] # Eos # Seg Neutrophils % Seg Neutrophils # PT INR POC ABG pH POC ABG pCO2 POC ABG pO2 VBG pH Sodium Chloride Carbon Dioxide BUN Glucose POC Glucose 129 H 123 H AST ALT Alkaline Phosphatase NT-Pro-B Natriuret Pep Albumin Urine WBC (Auto) Crossmatch Allied health notes reviewed: nursing
--- NOTE | 2018-11-12 13:48 | Progress Note ---
Assessment and Plan /Sepsis with MRSA bacteremia, UTI, Infected decub ulcer POA, osteomyelitis poa - Patient had being multiple admission in the past including this one for similar situation - Previously discussed multiple time with family for hospice placement but they refused - Patient was previously discharged with vancomycin for MRSA bacteremia - He readmitted this time while he was on vancomycin and blood cultures still growing MRSA - Changed antibiotic to daptomycin per ID /Sacral pressure ulcer -infected. POA WOUND CARE CONSULTed. CONTINUE ABX. Debridement done by Dr Man Amputation recommended and the daughter refused /Acute on chronic encephalopathy - Due to sepsis and underlying dementia - Continue to provide supportive care /Acute hypoxemic Respiratory failure Likely from underlying CHF exacerbation and profound sepsis cont Supplemental oxygen, nebulizer therapy, mgt per pulmonology / CHFeEF 30-35% with exacerbation, poa - Continue to monitor in's and O's, daily weight, aspirin and statin and beta chandan /Anemia of chronic disease Transfused one unit PRBC hemoglobin is stable /Seizure Continue current therapy, seizure precautions. / BPH Continue Chaudhary catherter /Chronic Dementia supportive care /DVT prophylaxis Prophylactic lovenox POOR PROGNOSIS Disposition; Discussed with ethics committee. Treating the patient with antibiotics is futile and the best option is either palliative care or amputation which the daughter refused. Pending ethics committee meeting. Patient will be discharged back to senior living with the daptomycin but currently they don't have any isolation room. Brief History 67 [facility]O [facility] Resident as [facility] with HTN, CVA, Obstructive Uropathy, Diastolic CHF, Contracture, Sacral Decubitus Ulcers, NM, DM, OA, Seizure Disorder, COPD, Dementia, BPH presents to ED for evaluation. Pt is stuporous and unable to provide history. Pt history taken from ED Staff, EMS, and SNF Staff. As per staff, the patient was found to have respiratory distress upon evaluation this morning. Pt found to have pulse oximetry in the 80's. EMS notified and patient subsequently transported to [facility] for further care and evaluation. Pt seen and evaluated in ED and found to have UTI, Sepsis, Encephalopathy as well as Acute Hypoxemic Respiratory Failure. Pt initiated on NIPPV in ED with improvement in symptoms. Pt admitted to IMCU and initiated on Sepsis protocol. Prior admission on 10/01/18 reviewed. Extensive discussion with family about patients poor prognosis surgery consulted for possible debridment ID following, Pulmonary status improved Continue isolation care, Chaudhary placed by Urology please do not remove Hospitalist Physical The patient appeared stuporous, does not follow any command. Vital signs as documented. Head exam is unremarkable. No scleral icterus . Neck is without jugular venous distension, thyromegaly, or carotid bruits. Lungs are clear to auscultation. Cardiac exam reveals regular rate and Rhythm. First and second heart sounds normal. No murmurs, rubs or gallops. Abdominal exam reveals normal bowel sounds, no masses, no organomegaly and no aortic enlargement. Extremities contracted extremities. FRONT END ENGINEER: Does not follow command, contracted extremities Skin; multiple decubitus ulcers, including the sacrum and the heel. Subjective Date of service: 11/12/18 Principal diagnosis: Severe Sepsis; Ac. Hypoxemic Resp failure; Anemia; Seizure; UTI; BPH Interval history: Patient seen and examined. Medical records and medication list reviewed. No acute event overnight noted by the RN. Ethics Committee consult pending Objective - Constitutional Vitals: Vital Signs - 12hr 11/12/18 11/12/18 11/12/18 04:45 08:10 10:00 Temperature 99.0 F 98.2 F Pulse Rate 90 90 92 H Respiratory 20 16 Rate Blood Pressure 145/88 145/71 O2 Sat by Pulse 97 99 Oximetry 11/12/18 11/12/18 11:08 11:31 Temperature 98.9 F Pulse Rate 90 96 H Respiratory 16 Rate Blood Pressure 145/71 140/87 O2 Sat by Pulse 98 Oximetry - Labs CBC & Chem 7: 11/13/18 09:26 11/13/18 22:10 Labs: Abnormal lab results 11/11/18 11/12/18 11/12/18 Range/Units 18:54 00:22 06:49 POC Glucose 114 H 123 H 129 H (70-105) 11/12/18 Range/Units 11:35 POC Glucose 123 H (70-105)
[2018-11-12] MEDS: CATAPRES-TTS PATCH TD SCH (16:23)
--- NOTE | 2018-11-12 16:29 | Progress Note ---
Assessment and Plan Cultures: Blood culture 10/01/2018 MRSA 2 of 4. Blood culture 10/03/2018 MRSA Blood culture 10/08/2018 no growth Blood culture 10/11/2018 no growth Blood culture 10/21/2018 no growth Blood culture 11/01/2018 Staph haemolyticus 2 of 4 bottles, resistent to methicillin and MRSA 1 of 4 bottles Blood culture 11/04/2018 no growth today Assessment: 67 y/o male with history of HTN, CVA, Obstructive Uropathy, Contracture, Multiple Decubitus Ulcers, [place], DM, OA, Seizure Disorder, COPD, Dementia, Debility, BPH, well known to ID due to multiple admissions secondary to ducubitus ulcers infections and recurrent bacteremia, last time admitted on 10/02/2018 found with MRSA bacteremia jessica from decubitus ulcers mainly active large left trochanteric with bone exposure and sacral with bone exposure. Patient's infection was deemed incurable and hospice was recommended. Patient was discharged back to [place] on IV vancomycin 1 gm every 48 hours for total 6 weeks ending 11/12/2018 via neck tunneled cath. Patient was readmitted on due to AMS, worsening SOB. Patient is lethargic and unable to provide history. At the [place] he was found to have respiratory distress upon evaluation the morning of admission,pulse oximetry in the 80's: 1) Severe Sepsis:still fever. Etiology most likely Recurrent Staph bacteremia +/- CAUTI. 2) Staph haemolyticus and MRSA bacteremia with recent MRSA bacteremia: Blood culture 11/01/2018 Staph haemolyticus 2 of 4 bottles and MRSA 1 of 4. Source likely multiple decubitus ulcers or Neck IV central line. Patient is failing vancomycin. He has a tunneled neck cath. Recent TTE negative for vegetations. On daptomycin. 3) Recent septic shock due to polymicrobial bacteremia ESBL and carbapenem resistant E coli, MDR Proteus, Strep and E faecalis on 07/29/2018 probably from multiple infected decubitus ulcers and less likely UTI. Repeat blood cultures 07/31/2018 showed same MDR E coli 1 of 4 bottles then 08/06/2018 blood cultures showed no growth. Patient was treated with Vabomere for 14 days. 4) Multiple infected decubitus ulcers: His prognosis has been poor and hospice has been recommended several times in the past but family has declined. declined. His wounds are not curable considering his contractures, bed bound status and poor nutritional status. There was also suspicion of septic arthritis of left hip from decubitus ulcer. S/p debridement of multiple pressure ulcerations on 11/07/2018- stage 4 left hip pressure ulceration was surgically excisionally debrided of necrotic bone, stage 3 sacral, right ankle and left heel pressure ulcers were then surgically, excisionally debrided of necrotic SQ fat, stage 4 right heel, left lateral heel and right lateral leg ulcerations were surgically, excisionally debrided of necrotic SQ tissue, muscle and fascia. Dr Man recommended bilateral AKA, patient and daughter refused. Dr Man recommended Orthopedic consultation for possible left hip disarticulation as his left hip joint is crumbling and has profuse purulent drainage. 5) Recurrent UTI: patient's bright was removed home 2 weeks ago, a new bright placed here 6) Acute encephalopathy: multifactorial. 7) Acute resp failure: was on BIPAP now NC O2. EF 30-35% pericaldial and pleural effusion. Recommendations: - Ethics committee consultation due to incurable infection failing multiple courses of IV antibiotics and now evidence of worsening infection. Patient and daughter refusing amputation. - extensive discussion with daughter done on 11/04 regarding futility of antibiotic therapy as his wound infection is incurable. Patient is at risk for recurrent bacteremia, antibiotics side effects including C diff, nephrotoxicity and others. Wound is not healing due to MDR infection, severe contractures, malnutrition and multiple comorbilities. Daughter wants to honor his wishes but she understands he is sick. Refused hospice. - continue daptomycin IV for now D9 - always contact isolation - at discharge will do daptomycin 400 mg IV q day for 6 weeks until 12/16/2018 - remove neck central line - pending Grim prognosis. Will follow. Penny Bernardo MD Infectious Diseases [facility], [place], [facility] M [phone] Subjective Date of service: 11/12/18 Principal diagnosis: Severe Sepsis; Ac. Hypoxemic Resp failure; Anemia; Seizure; UTI; BPH Interval history: Patient is in pain, tmax 100 Objective - Exam Narrative Exam: General appearance: alert in NAD Eyes: anicteric sclerae, moist conjunctivae; no lid-lag; PERRLA HENT: Atraumatic; oropharynx limited Neck: Trachea midline; supple, no thyromegaly or lymphadenopathy Lungs: CTA CV: RRR no murmur Abdomen: Soft, non-tender Extremities: marked legs contractions, multiple decubitus ulcers covered with dressings Skin: multiple skin tears Psych: no agitated. Neuro: alert - Constitutional Vitals: Vital Signs Temp Pulse Resp BP Pulse Ox 98.9 F 96 H 16 140/87 98 11/12/18 11:31 11/12/18 11:31 11/12/18 11:31 11/12/18 11:31 11/12/18 11:31 Temperature -Last 24 Hours Temperature 98.9 F Temperature 98.2 F Temperature 99.0 F Temperature 99.5 F Temperature 100.0 F - Labs CBC & Chem 7: 11/06/18 05:42 11/06/18 05:42 Labs: Abnormal lab results 11/11/18 11/12/18 11/12/18 Range/Units 18:54 00:22 06:49 POC Glucose 114 H 123 H 129 H (70-105) 11/12/18 Range/Units 11:35 POC Glucose 123 H (70-105)
[2018-11-12] MEDS: NACL 0.9% IV SCH (22:32)
[2018-11-12] MEDS: DAPTOMYCIN IV SCH (22:32)
[2018-11-13] MEDS: DUONEB *Not for PRN Use IH SCH ×2 (08:42→20:57)
[2018-11-13] MEDS ORDERED: XYLOCAINE TOPICAL 4% TP NR (09:00)
--- NOTE | 2018-11-13 09:58 | Progress Note ---
Assessment and Plan Patient weak and contracted. Patient sleeping on 3L O2. No acute respiratory distress. O2 sat 97%. No change in general condition. - Patient Problems (1) Respiratory failure Current Visit: Yes Status: Acute Qualifiers: Chronicity: acute Respiratory failure complication: hypoxia Qualified Code(s): J96.01 - Acute respiratory failure with hypoxia Plan to address problem: Continue O2 supplementation. Albuterol and Atrovent treatment q6h. Patient is on Diptomycine as per infectious diseases. Continue SQ Levonox. Recommend GI prophylexis. (2) Seizure Current Visit: Yes Status: Acute Plan to address problem: Management as per neurologist. (3) Sepsis Current Visit: Yes Status: Acute Plan to address problem: Patient is on Daptomycine as per infectious diseases. (4) UTI (urinary tract infection) Current Visit: Yes Status: Acute Qualifiers: Encounter type: initial encounter Plan to address problem: Patient is on Daptomycine as per infectious diseases. (5) ARF (acute renal failure) with tubular necrosis Current Visit: No Status: Acute Plan to address problem: Management as per Nephrology. Subjective Date of service: 11/13/18 Principal diagnosis: Severe Sepsis; Ac. Hypoxemic Resp failure; Anemia; Seizure; UTI; BPH Interval history: Patient weak and contracted. Patient sleeping on 3L O2. No acute respiratory distress. O2 sat 97%. No change in general condition. Objective Vital Signs - 12hr 11/13/18 11/13/18 11/13/18 00:00 04:17 08:08 Temperature 98.1 F 97.8 F 98.6 F Pulse Rate 86 90 Pulse Rate [ Bilateral Throughout] Respiratory 18 18 16 Rate Respiratory Rate [Bilateral Throughout] Blood Pressure 116/69 133/56 123/47 O2 Sat by Pulse 97 97 Oximetry 11/13/18 11/13/18 08:42 08:59 Temperature Pulse Rate Pulse Rate [ 92 H 90 Bilateral Throughout] Respiratory Rate Respiratory 18 20 Rate [Bilateral Throughout] Blood Pressure O2 Sat by Pulse 97 Oximetry Constitutional: no acute distress, asleep, other (Patient weak and contacted) Eyes: non-icteric ENT: oropharynx moist Neck: supple, no lymphadenopathy, no JVD Effort: mildly labored Ascultation: Bilateral: diminished breath sounds, rhonchi Percussion: Bilateral: not dull Cardiovascular: regular rate and rhythm Gastrointestinal: normoactive bowel sounds, soft, non-tender, non-distended Integumentary: rash Extremities: no cyanosis, no edema, pulses normal, other (Patient has pressure ulcer at multiple areas, including sacral area.) Neurologic: non-focal exam, pupils equal and round, CN II-XII normal, other (+ contractures) Psychiatric: other (flat affect) CBC and BMP: 11/13/18 09:26 11/13/18 15:13 ABG, PT/INR, D-dimer: ABG POC ABG pH 7.494 (7.35-7.45) H 11/01/18 15:27 POC ABG pCO2 34.5 (35-45) L 11/01/18 15:27 POC ABG pO2 139 (80-105) H 11/01/18 15:27 POC ABG HCO3 26.5 (22-26 mml/L) 11/01/18 15:27 POC ABG Total CO2 28 (23-27mmol/L) 11/01/18 15:27 POC ABG O2 Sat 99 11/01/18 15:27 PT/INR, D-dimer PT 16.3 Sec. (12.2-14.9) H 11/01/18 14:50 INR 1.35 (0.87-1.13) H 11/01/18 14:50 Abnormal lab findings: Abnormal Labs 11/01/18 11/01/18 11/01/18 14:50 14:50 14:50 WBC 15.3 H RBC 2.76 L Hgb 7.9 L Hct 23.5 L MCH MCHC RDW 18.3 H Plt Count 567 H Lymph % (Auto) 6.5 L [place] % (Auto) 8.5 H Eos % (Auto) Lymph # 1.0 L [place] # 1.3 H Eos # Seg Neutrophils % 83.4 H Seg Neutrophils # 12.7 H PT 16.3 H INR 1.35 H POC ABG pH POC ABG pCO2 POC ABG pO2 VBG pH Sodium Chloride Carbon Dioxide BUN 49 H Glucose 132 H POC Glucose AST 90 H ALT 77 H Alkaline Phosphatase 350 H NT-Pro-B Natriuret Pep Albumin 1.6 L Urine WBC (Auto) Crossmatch 11/01/18 11/01/18 11/01/18 14:50 14:50 15:27 WBC RBC Hgb Hct MCH MCHC RDW Plt Count Lymph % (Auto) [place] % (Auto) Eos % (Auto) Lymph # [place] # Eos # Seg Neutrophils % Seg Neutrophils # PT INR POC ABG pH 7.494 H POC ABG pCO2 34.5 L POC ABG pO2 139 H VBG pH 7.499 H Sodium Chloride Carbon Dioxide BUN Glucose POC Glucose AST ALT Alkaline Phosphatase NT-Pro-B Natriuret Pep 6776 H Albumin Urine WBC (Auto) Crossmatch 11/01/18 11/03/18 11/03/18 15:57 03:41 03:41 WBC 12.8 H RBC 2.55 L Hgb 6.9 L Hct 22.2 L MCH 27 L MCHC 31 L RDW 17.9 H Plt Count 519 H Lymph % (Auto) [place] % (Auto) Eos % (Auto) Lymph # [place] # Eos # Seg Neutrophils % Seg Neutrophils # PT INR POC ABG pH POC ABG pCO2 POC ABG pO2 VBG pH Sodium 147 H Chloride 110.3 H Carbon Dioxide BUN 55 H Glucose POC Glucose AST ALT Alkaline Phosphatase NT-Pro-B Natriuret Pep Albumin Urine WBC (Auto) > 182.0 H Crossmatch 11/03/18 11/04/18 11/04/18 12:51 05:12 05:12 WBC 11.5 H RBC 2.94 L Hgb 8.3 L Hct 25.3 L MCH MCHC RDW 17.3 H Plt Count 514 H Lymph % (Auto) [place] % (Auto) Eos % (Auto) Lymph # [place] # Eos # Seg Neutrophils % Seg Neutrophils # PT INR POC ABG pH POC ABG pCO2 POC ABG pO2 VBG pH Sodium 147 H Chloride 112.4 H Carbon Dioxide BUN 52 H Glucose POC Glucose AST ALT Alkaline Phosphatase NT-Pro-B Natriuret Pep Albumin Urine WBC (Auto) Crossmatch See Detail 11/05/18 11/05/18 11/06/18 04:50 04:50 05:42 WBC RBC 3.03 L 2.80 L Hgb 8.7 L 7.9 L Hct 26.6 L 24.7 L MCH MCHC RDW 17.1 H 17.0 H Plt Count 502 H 478 H Lymph % (Auto) 10.4 L [place] % (Auto) 8.6 H Eos % (Auto) 4.7 H Lymph # 1.0 L [place] # Eos # 0.5 H Seg Neutrophils % 75.6 H Seg Neutrophils # PT INR POC ABG pH POC ABG pCO2 POC ABG pO2 VBG pH Sodium 149 H Chloride 114.4 H Carbon Dioxide 21 L BUN 50 H Glucose 108 H POC Glucose AST ALT Alkaline Phosphatase NT-Pro-B Natriuret Pep Albumin Urine WBC (Auto) Crossmatch 11/06/18 11/11/18 11/12/18 05:42 18:54 00:22 WBC RBC Hgb Hct MCH MCHC RDW Plt Count Lymph % (Auto) [place] % (Auto) Eos % (Auto) Lymph # [place] # Eos # Seg Neutrophils % Seg Neutrophils # PT INR POC ABG pH POC ABG pCO2 POC ABG pO2 VBG pH Sodium 149 H Chloride 113.4 H Carbon Dioxide BUN 50 H Glucose 121 H POC Glucose 114 H 123 H AST ALT Alkaline Phosphatase NT-Pro-B Natriuret Pep Albumin Urine WBC (Auto) Crossmatch 11/12/18 11/12/18 11/13/18 06:49 11:35 06:34 WBC RBC Hgb Hct MCH MCHC RDW Plt Count Lymph % (Auto) [place] % (Auto) Eos % (Auto) Lymph # [place] # Eos # Seg Neutrophils % Seg Neutrophils # PT INR POC ABG pH POC ABG pCO2 POC ABG pO2 VBG pH Sodium Chloride Carbon Dioxide BUN Glucose POC Glucose 129 H 123 H 128 H AST ALT Alkaline Phosphatase NT-Pro-B Natriuret Pep Albumin Urine WBC (Auto) Crossmatch Allied health notes reviewed: nursing
[2018-11-13 10:17] LABS: Basophils # (Auto) 0.1 K/mm3 (0.0-0.1); Basophils % (Auto) 0.9 % (0.0-1.8); Eosinophils # (Auto) 0.7 K/mm3 (0.0-0.4); Hematocrit 27.3 % (35.5-45.6); Hemoglobin 8.6 gm/dl (11.8-15.2); Lymphocytes # (Auto) 1.2 K/mm3 (1.2-5.4); Lymphocytes % (Auto) 11.7 % (13.4-35.0); Mean Corpuscular HGB Conc 31 % (32-34); Mean Corpuscular Volume 89 fl (84-94); Monocytes # (Auto) 0.8 K/mm3 (0.0-0.8); Monocytes % (Auto) 7.5 % (0.0-7.3); Platelet Count 504 K/mm3 (140-440); Red Blood Count 3.08 M/mm3 (3.65-5.03); Red Cell Distribution Width 18.3 % (13.2-15.2)
[2018-11-13 10:19] LABS: BUN/Creatinine Ratio 32; Blood Urea Nitrogen 38 mg/dL (9-20); Calcium 9.1 mg/dL (8.4-10.2); Hemolysis Index 2
--- NOTE | 2018-11-13 10:39 | Progress Note ---
Assessment and Plan Cultures: Blood culture 10/01/2018 MRSA 2 of 4. Blood culture 10/03/2018 MRSA Blood culture 10/08/2018 no growth Blood culture 10/11/2018 no growth Blood culture 10/21/2018 no growth Blood culture 11/01/2018 Staph haemolyticus 2 of 4 bottles, resistent to methicillin and MRSA 1 of 4 bottles Blood culture 11/04/2018 no growth Assessment: 67 y/o male with history of HTN, CVA, Obstructive Uropathy, Contracture, Multiple Decubitus Ulcers, [place], DM, OA, Seizure Disorder, COPD, Dementia, Debility, BPH, well known to ID due to multiple admissions secondary to ducubitus ulcers infections and recurrent bacteremia, last time admitted on 10/02/2018 found with MRSA bacteremia jessica from decubitus ulcers mainly active large left trochanteric with bone exposure and sacral with bone exposure. Patient's infection was deemed incurable and hospice was recommended. Patient was discharged back to [place] on IV vancomycin 1 gm every 48 hours for total 6 weeks ending 11/12/2018 via neck tunneled cath. Patient was readmitted on due to AMS, worsening SOB. Patient is lethargic and unable to provide history. At the [facility] he was found to have respiratory distress upon evaluation the morning of admission,pulse oximetry in the 80's: 1) Severe Sepsis: no fever x 24h. Etiology most likely Recurrent Staph bacteremia +/- CAUTI. 2) Staph haemolyticus and MRSA bacteremia with recent MRSA bacteremia: Blood culture 11/01/2018 Staph haemolyticus 2 of 4 bottles and MRSA 1 of 4. Source likely multiple decubitus ulcers or Neck IV central line. Patient is failing vancomycin. He has a tunneled neck cath. Recent TTE negative for vegetations. On daptomycin. 3) Recent septic shock due to polymicrobial bacteremia ESBL and carbapenem resistant E coli, MDR Proteus, Strep and E faecalis on 07/29/2018 probably from multiple infected decubitus ulcers and less likely UTI. Repeat blood cultures 07/31/2018 showed same MDR E coli 1 of 4 bottles then 08/06/2018 blood cultures showed no growth. Patient was treated with Vabomere for 14 days. 4) Multiple infected decubitus ulcers: His prognosis has been poor and hospice has been recommended several times in the past but family has declined. declined. His wounds are not curable considering his contractures, bed bound status and poor nutritional status. There was also suspicion of septic arthritis of left hip from decubitus ulcer. S/p debridement of multiple pressure ulcerations on 11/07/2018- stage 4 left hip pressure ulceration was surgically excisionally debrided of necrotic bone, stage 3 sacral, right ankle and left heel pressure ulcers were then surgically, excisionally debrided of necrotic SQ fat, stage 4 right heel, left lateral heel and right lateral leg ulcerations were surgically, excisionally debrided of necrotic SQ tissue, muscle and fascia. Dr Man recommended bilateral AKA, patient and daughter refused. Dr Man recommended Orthopedic consultation for possible left hip disarticulation as his left hip joint is crumbling and has profuse purulent drainage. 5) Recurrent UTI: patient's bright was removed home 2 weeks ago, a new bright placed here 6) Acute encephalopathy: multifactorial. 7) Acute resp failure: was on BIPAP now NC O2. EF 30-35% pericaldial and pleural effusion. Recommendations: - Family meeting tomorrow - Ethics committee consultation due to incurable infection failing multiple courses of IV antibiotics and now evidence of worsening infection. Patient and echo pickard refusing amputation. - extensive discussion with daughter done on 11/04 regarding futility of antibiotic therapy as his wound infection is incurable. Patient is at risk for recurrent bacteremia, antibiotics side effects including C diff, nephrotoxicity and others. Wound is not healing due to MDR infection, severe contractures, malnutrition and multiple comorbilities. Daughter wants to honor his wishes but she understands he is sick. Refused hospice. - continue daptomycin IV for now D10 - always contact isolation - at discharge will do daptomycin 400 mg IV q day for 6 weeks until 12/16/2018 - remove neck central line - pending Grim prognosis. Will follow. Penny Bernardo MD Infectious Diseases [facility] M [phone] Subjective Date of service: 11/13/18 Principal diagnosis: Severe Sepsis; Ac. Hypoxemic Resp failure; Anemia; Seizure; UTI; BPH Interval history: Patient is in pain, no fever for 24h Objective - Exam Narrative Exam: General appearance: alert in NAD severely contracted, limited exam Eyes: anicteric sclerae, moist conjunctivae; no lid-lag; PERRLA HENT: Atraumatic; oropharynx limited Neck: Trachea midline; supple, no thyromegaly or lymphadenopathy Lungs: CTA CV: RRR Abdomen: Soft, non-tender Extremities: marked legs contractions, multiple decubitus ulcers covered with dressings Skin: multiple skin tears Psych: no agitated. Neuro: alert - Constitutional Vitals: Vital Signs Temp Pulse Resp BP Pulse Ox 98.6 F 90 20 123/47 97 11/13/18 08:08 11/13/18 08:59 11/13/18 08:59 11/13/18 08:08 11/13/18 08:42 Temperature -Last 24 Hours Temperature 98.6 F Temperature 97.8 F Temperature 98.1 F Temperature 97.9 F Temperature 99.3 F Temperature 98.9 F - Labs CBC & Chem 7: 11/13/18 09:26 11/13/18 09:26 Labs: Abnormal lab results 11/12/18 11/13/18 11/13/18 Range/Units 11:35 06:34 09:26 RBC 3.08 L (3.65-5.03) M/mm3 Hgb 8.6 L (11.8-15.2) gm/dl Hct 27.3 L (35.5-45.6) % MCHC 31 L (32-34) % RDW 18.3 H (13.2-15.2) % Plt Count 504 H (140-440) K/mm3 Lymph % (Auto) 11.7 L (13.4-35.0) % Yell % (Auto) 7.5 H (0.0-7.3) % Eos % (Auto) 7.0 H (0.0-4.3) % Eos # 0.7 H (0.0-0.4) K/mm3 Seg Neutrophils % 72.9 H (40.0-70.0) % Sodium (137-145) mmol/L Potassium (3.6-5.0) mmol/L Chloride (98-107) mmol/L Carbon Dioxide (22-30) mmol/L BUN (9-20) mg/dL Glucose (75-100) mg/dL POC Glucose 123 H 128 H (70-105) 11/13/18 Range/Units 09:26 RBC (3.65-5.03) M/mm3 Hgb (11.8-15.2) gm/dl Hct (35.5-45.6) % MCHC (32-34) % RDW (13.2-15.2) % Plt Count (140-440) K/mm3 Lymph % (Auto) (13.4-35.0) % Yell % (Auto) (0.0-7.3) % Eos % (Auto) (0.0-4.3) % Eos # (0.0-0.4) K/mm3 Seg Neutrophils % (40.0-70.0) % Sodium 153 H (137-145) mmol/L Potassium 6.3 H* (3.6-5.0) mmol/L Chloride 122.3 H (98-107) mmol/L Carbon Dioxide 21 L (22-30) mmol/L BUN 38 H (9-20) mg/dL Glucose 112 H (75-100) mg/dL POC Glucose (70-105)
[2018-11-13] MEDS ORDERED: SODIUM BICARBONATE IV ONE (10:55)
[2018-11-13] MEDS ORDERED: D50W (25GM) Vial IV ONE (10:55)
[2018-11-13] MEDS ORDERED: KIONEX PO ONE (11:00)
[2018-11-13] MEDS ORDERED: D50W (25GM) Syringe IV ONE (11:00)
[2018-11-13] MEDS: LOVENOX SUB-Q SCH (11:14)
[2018-11-13] MEDS: Centrum Liq FEEDTUBE SCH (11:14)
[2018-11-13] MEDS: ZINC SULFATE PO SCH (11:14)
[2018-11-13] MEDS: VITAMIN C FEEDTUBE SCH ×2 (11:15→22:08)
[2018-11-13] MEDS: KEPPRA FEEDTUBE SCH ×2 (11:15→22:08)
[2018-11-13] MEDS: SODIUM CHLORIDE FLUSH SYRINGE 10 ML IV SCH ×2 (11:15→22:09)
[2018-11-13] MEDS: DAKIN'S HALF STRENGTH TP SCH ×2 (11:15→22:09)
[2018-11-13] MEDS: COREG PO SCH ×2 (11:15→22:09)
[2018-11-13] MEDS ORDERED: CALCIUM GLUCONATE 2,000 MG in NACL 0.9% 100 ML IV ONE (12:00)
--- NOTE | 2018-11-13 13:50 | Procedure Note ---
Date of procedure: 11/13/18 Pre-op diagnosis: Multiple Stage 3 and stage 4 pressure ulcers - see below Post-op diagnosis: same Procedure: Debridement of multiple stage 3/4 pressure ulcers - see below for details Description of procedure: Pt was first positioned on his bed, right side up. The sacral and right lateral leg ulcerations were surgically, excisionally debrided of necrotic muscle and fascia with a curette. Bleeding was minimal and was controlled with pressure. The right lateral ankle and left heel ulcerations were then surgically, excisionally debrided of necrotic SQ tissue with a curette. Bleeding was minimal and was controlled with pressure. The above wounds were dressed by the wound care nurse. Pt was repositioned left side up. The left hip ulceration was surgically, excisionally debrided of necrotic bone and fascia with a curette. Bleeding was minimal and was controlled with pressure. Finally, the right heel ulceration was surgically, excisionally debrided of necrotic muscle with a curette. Bleeding was minimal and was controlled with pressure. These wounds were then dressed by the wound care nurse. Pt tolerated the procedure well. Final wound measurements were as follows: 1) Sacrum - 10.5 X 12 X 2 cm 2) Right lateral leg - 9.7 X 2 X 0.5 cm 3) Right lateral ankle - 2.5 X 2.5 X 0.3 cm 4) Left heel - 2.5 X 6 X 0.3 cm 5) Left hip - 4.5 X 4.3 X 6.5 cm 6) Right heel - 2.5 X 3 X 1 cm Anesthesia: none Surgeon: FABRICIO WASHINGTON Estimated blood loss: minimal Pathology: none Specimen disposition: discarded Condition: stable Disposition: no change
--- NOTE | 2018-11-13 15:34 | Progress Note ---
Assessment and Plan /Sepsis with MRSA bacteremia, UTI, Infected decub ulcer POA, osteomyelitis poa - Patient had being multiple admission in the past including this one for similar situation - Previously discussed multiple time with family for hospice placement but they refused - Patient was previously discharged with vancomycin for MRSA bacteremia - He readmitted this time while he was on vancomycin and blood cultures still growing MRSA - Changed antibiotic to daptomycin per ID /Sacral pressure ulcer -infected. POA WOUND CARE CONSULTed. CONTINUE ABX. Debridement done by Dr Man Amputation recommended and the daughter refused /Acute on chronic encephalopathy - Due to sepsis and underlying dementia - Continue to provide supportive care /Acute hypoxemic Respiratory failure Likely from underlying CHF exacerbation and profound sepsis cont Supplemental oxygen, nebulizer therapy, mgt per pulmonology / CHFeEF 30-35% with exacerbation, poa - Continue to monitor in's and O's, daily weight, aspirin and statin and beta chandan /Anemia of chronic disease Transfused one unit PRBC hemoglobin is stable /Seizure Continue current therapy, seizure precautions. / BPH Continue Chaudhary catherter /Chronic Dementia supportive care /DVT prophylaxis Prophylactic lovenox POOR PROGNOSIS Disposition; Discussed with ethics committee. Treating the patient with antibiotics is futile and the best option is either palliative care or amputation which the daughter refused. Pending ethics committee meeting. Patient will be discharged back to [facility] with the daptomycin but currently they don't have any isolation room. 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 Pt is stuporous and unable to provide history. Pt history taken from ED Staff, EMS, and SNF Staff. As per staff, the patient was found to have respiratory distress upon evaluation this morning. Pt found to have pulse oximetry in the 80's. EMS notified and patient subsequently transported to [facility] for further care and evaluation. Pt seen and evaluated in ED and found to have UTI, Sepsis, Encephalopathy as well as Acute Hypoxemic Respiratory Failure. Pt initiated on NIPPV in ED with improvement in symptoms. Pt admitted to IMCU and initiated on Sepsis protocol. Prior admission on 10/01/18 reviewed. Extensive discussion with family about patients poor prognosis surgery consulted for possible debridment ID following, Pulmonary status improved Continue isolation care, Chaudhary placed by Urology please do not remove Hospitalist Physical The patient appeared stuporous, does not follow any command. Vital signs as documented. Head exam is unremarkable. No scleral icterus . Neck is without jugular venous distension, thyromegaly, or carotid bruits. Lungs are clear to auscultation. Cardiac exam reveals regular rate and Rhythm. First and second heart sounds normal. No murmurs, rubs or gallops. Abdominal exam reveals normal bowel sounds, no masses, no organomegaly and no aortic enlargement. Extremities contracted extremities. 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 Subjective Date of service: 11/13/18 Principal diagnosis: Severe Sepsis; Ac. Hypoxemic Resp failure; Anemia; Seizure; UTI; BPH Interval history: Patient seen and examined. Medical records and medication list reviewed. No acute event overnight noted by the RN. Ethics Committee consult pending Objective - Constitutional Vitals: Vital Signs - 12hr 11/13/18 11/13/18 11/13/18 04:17 08:08 08:42 Temperature 97.8 F 98.6 F Pulse Rate 90 Pulse Rate [ 92 H Bilateral Throughout] Respiratory 18 16 Rate Respiratory 18 Rate [Bilateral Throughout] Blood Pressure 133/56 123/47 O2 Sat by Pulse 97 97 Oximetry 11/13/18 08:59 Temperature Pulse Rate Pulse Rate [ 90 Bilateral Throughout] Respiratory Rate Respiratory 20 Rate [Bilateral Throughout] Blood Pressure O2 Sat by Pulse Oximetry - Labs CBC & Chem 7: 11/13/18 09:26 11/13/18 22:10 Labs: Abnormal lab results 11/13/18 11/13/18 11/13/18 Range/Units 06:34 09:26 09:26 RBC 3.08 L (3.65-5.03) M/mm3 Hgb 8.6 L (11.8-15.2) gm/dl Hct 27.3 L (35.5-45.6) % MCHC 31 L (32-34) % RDW 18.3 H (13.2-15.2) % Plt Count 504 H (140-440) K/mm3 Lymph % (Auto) 11.7 L (13.4-35.0) % [place] % (Auto) 7.5 H (0.0-7.3) % Eos % (Auto) 7.0 H (0.0-4.3) % Eos # 0.7 H (0.0-0.4) K/mm3 Seg Neutrophils % 72.9 H (40.0-70.0) % Sodium 153 H (137-145) mmol/L Potassium 6.3 H* (3.6-5.0) mmol/L Chloride 122.3 H (98-107) mmol/L Carbon Dioxide 21 L (22-30) mmol/L BUN 38 H (9-20) mg/dL Glucose 112 H (75-100) mg/dL POC Glucose 128 H (70-105)
[2018-11-13] MEDS: NACL 0.9% IV SCH (22:15)
[2018-11-13] MEDS: DAPTOMYCIN IV SCH (22:15)
[2018-11-13 23:59] LABS: BUN/Creatinine Ratio 32; Blood Urea Nitrogen 35 mg/dL (9-20); Calcium 9.6 mg/dL (8.4-10.2); Hemolysis Index 6
[2018-11-14] MEDS: DUONEB *Not for PRN Use IH SCH ×2 (07:20→21:44)
[2018-11-14] MEDS: LOVENOX SUB-Q SCH (10:28)
[2018-11-14] MEDS: Centrum Liq FEEDTUBE SCH (10:28)
[2018-11-14] MEDS: TYLENOL FEEDTUBE PRN (10:28)
[2018-11-14] MEDS: COREG PO SCH ×2 (10:29→21:48)
[2018-11-14] MEDS: VITAMIN C FEEDTUBE SCH ×2 (10:29→21:48)
[2018-11-14] MEDS: DAKIN'S HALF STRENGTH TP SCH (10:30)
--- NOTE | 2018-11-14 10:31 | Progress Note ---
Assessment and Plan Cultures: Blood culture 10/01/2018 MRSA 2 of 4. Blood culture 10/03/2018 MRSA Blood culture 10/08/2018 no growth Blood culture 10/11/2018 no growth Blood culture 10/21/2018 no growth Blood culture 11/01/2018 Staph haemolyticus 2 of 4 bottles, resistent to methicillin and MRSA 1 of 4 bottles Blood culture 11/04/2018 no growth Cultures: Blood culture 10/01/2018 MRSA 2 of 4. Blood culture 10/03/2018 MRSA Blood culture 10/08/2018 no growth Blood culture 10/11/2018 no growth Blood culture 10/21/2018 no growth Blood culture 11/01/2018 Staph haemolyticus 2 of 4 bottles, resistent to methicillin and MRSA 1 of 4 bottles Blood culture 11/04/2018 no growth Assessment: 67 y/o male with history of HTN, CVA, Obstructive Uropathy, Contracture, Multiple Decubitus Ulcers, [place], DM, OA, Seizure Disorder, COPD, Dementia, Debility, BPH, well known to ID due to multiple admissions secondary to d ucubitus ulcers infections and recurrent bacteremia, last time admitted on 10/02/2018 found with MRSA bacteremia jessica from decubitus ulcers mainly active large left trochanteric with bone exposure and sacral with bone exposure. Patient's infection was deemed incurable and hospice was recommended. Patient was discharged back to [facility] on IV vancomycin 1 gm every 48 hours for total 6 weeks ending 11/12/2018 via neck tunneled cath. Patient was readmitted on due to AMS, worsening SOB. Patient is lethargic and unable to provide history. At the [facility] he was found to have respiratory distress upon evaluation the morning of admission,pulse oximetry in the 80's: 1) Severe Sepsis: no fever x 24h. Etiology most likely Recurrent Staph bacteremia +/- CAUTI. 2) Staph haemolyticus and MRSA bacteremia with recent MRSA bacteremia: Blood culture 11/01/2018 Staph haemolyticus 2 of 4 bottles and MRSA 1 of 4. Source likely multiple decubitus ulcers or Neck IV central line. Patient is failing vancomycin. He has a tunneled neck cath. Recent TTE negative for vegetations. On daptomycin. 3) Recent septic shock due to polymicrobial bacteremia ESBL and carbapenem resistant E coli, MDR Proteus, Strep and E faecalis on 07/29/2018 probably from multiple infected decubitus ulcers and less likely UTI. Repeat blood cultures 07/31/2018 showed same MDR E coli 1 of 4 bottles then 08/06/2018 blood cultures showed no growth. Patient was treated with Vabomere for 14 days. 4) Multiple infected decubitus ulcers: His prognosis has been poor and hospice has been recommended several times in the past but family has declined. declined. His wounds are not curable considering his contractures, bed bound status and poor nutritional status. There was also suspicion of septic arthritis of left hip from decubitus ulcer. S/p debridement of multiple pressure ulcerations on 11/07/2018- stage 4 left hip pressure ulceration was surgically excisionally debrided of necrotic bone, stage 3 sacral, right ankle and left heel pressure ulcers were then surgically, excisionally debrided of necrotic SQ fat, stage 4 right heel, left lateral heel and right lateral leg ulcerations were surgically, excisionally debrided of necrotic SQ tissue, muscle and fascia.. s/p debridement 11/13/18 of multiple stage 3/4 pressure u lcers sacrum, right lateral leg, right lateral ankle, left heel, left hip and right heel Dr Man recommended bilateral AKA, patient and daughter refused. Dr Man recommended Orthopedic consultation for possible left hip disarticulation as his left hip joint is crumbling and has profuse purulent drainage. 5) Recurrent UTI: patient's bright was removed home 2 weeks ago, a new bright placed here 6) Acute encephalopathy: multifactorial. 7) Acute resp failure: was on BIPAP now NC O2. EF 30-35% pericaldial and pleural effusion. Recommendations: - Family meeting today - Ethics committee consultation due to incurable infection failing multiple courses of IV antibiotics and now evidence of worsening infection. Patient and daughter refusing amputation. - extensive discussion with daughter done on 11/04 regarding futility of antibiotic therapy as his wound infection is incurable. Patient is at risk for recurrent bacteremia, antibiotics side effects including C diff, nephrotoxicity and others. Wound is not healing due to MDR infection, severe contractures, malnutrition and multiple comorbilities. Daughter wants to honor his wishes but she understands he is sick. Refused hospice. - continue daptomycin IV for now D10 - always contact isolation - at discharge will do daptomycin 400 mg IV q day for 6 weeks until 12/16/2018 - remove neck central line - pending Grim prognosis. Jacquie Jean Baptiste NP [facility] M: [phone] O:[phone] Subjective Date of service: 11/14/18 Principal diagnosis: Severe Sepsis; Ac. Hypoxemic Resp failure; Anemia; Seizure; UTI; BPH Interval history: Patient seen and examined. Awake. Alert. verbalizes generalized pain. No fevers. Objective - Exam Narrative Exam: General appearance: Awake. Alert. Acute pain. Eyes: anicteric sclerae, moist conjunctivae; no lid-lag; PERRLA HENT: Atraumatic; oropharynx limited Neck: Trachea midline; supple, no thyromegaly or lymphadenopathy Lungs: CTA CV: RRR no murmur Abdomen: Soft, non-tender Extremities: marked legs contractions, multiple decubitus ulcers covered with dressings Skin: multiple skin tears Psych: Calm Neuro: alert - Constitutional Vitals: Vital Signs Temp Pulse Resp BP Pulse Ox 98.2 F 114 H 18 140/82 94 11/14/18 04:27 11/14/18 07:20 11/14/18 07:20 11/14/18 04:27 11/14/18 07:21 Temperature -Last 24 Hours Temperature 98.2 F Temperature 98.0 F Temperature 97.9 F Temperature 98.0 F - Labs CBC & Chem 7: 11/13/18 09:26 11/13/18 22:10 Labs: Abnormal lab results 11/13/18 11/13/18 11/13/18 Range/Units 15:13 22:10 23:45 Sodium 155 H (137-145) mmol/L Potassium 5.8 H 5.3 H (3.6-5.0) mmol/L Chloride 122.3 H (98-107) mmol/L BUN 35 H (9-20) mg/dL Glucose 113 H (75-100) mg/dL POC Glucose 111 H (70-105)
[2018-11-14] MEDS: KEPPRA FEEDTUBE SCH ×2 (10:34→21:48)
--- NOTE | 2018-11-14 15:06 | Progress Note ---
Assessment and Plan Severe Sepsis Acute Hypoxemic Respiratory failure Anemia of chronic disease Seizure UTI (urinary tract infection) BPH Dementia sacral pressure ulcer -infected. POA - continue supplemental oxygen as needed to keep O2 sat's > 90% - continue bronchodilators with pulmonary hygiene per RT - continue AED's for seizure control - fall precautions - neurochecks - aspiration precautions - complete antibiotics per ID rec's - enteral nutrition as tolerated - continue wound care per WCT - continue bright catheter re: Obstructive Uropathy - GI & VTE prophylaxis - continue mobility protocol for pressure ulcer prophylaxis - continue other care per attending / other consultants ... re-evaluate in am & prn Subjective Date of service: 11/14/18 Principal diagnosis: Severe Sepsis; Ac. Hypoxemic Resp failure; Anemia; Seizure; UTI; BPH Interval history: Patient is seen today for: Severe Sepsis; Acute Hypoxemic Respiratory failure; Anemia of chronic disease; Seizure; UTI (urinary tract infection); BPH; Dementia; sacral pressure ulcer -infected. POA Seen and examined at bedside; 24-hour events reviewed; nursing and respiratory care staff consulted; no adverse overnight events reported to me; resting peacefully in bed; family visiting; he declines any surgical amputation or intervention; No N/V/F/C; breathing a little heavy today Objective Vital Signs - 12hr 11/14/18 11/14/18 11/14/18 04:27 07:20 07:21 Temperature 98.2 F Pulse Rate 101 H Pulse Rate [ 114 H Bilateral Throughout] Respiratory 18 Rate Respiratory 18 Rate [Bilateral Throughout] Blood Pressure 140/82 O2 Sat by Pulse 96 94 Oximetry 11/14/18 10:29 Temperature Pulse Rate 107 H Pulse Rate [ Bilateral Throughout] Respiratory Rate Respiratory Rate [Bilateral Throughout] Blood Pressure O2 Sat by Pulse Oximetry Constitutional: no acute distress, alert, other (Patient weak and contacted) Eyes: non-icteric ENT: oropharynx moist Neck: no lymphadenopathy, no JVD, other (mild stiffness / contracture) Effort: mildly labored Ascultation: Bilateral: diminished breath sounds, rhonchi Percussion: Bilateral: not dull Cardiovascular: regular rate and rhythm Gastrointestinal: normoactive bowel sounds, soft, non-tender, non-distended Integumentary: rash Extremities: no cyanosis, no edema, pulses normal, other (Patient has pressure ulcer at multiple areas, including sacral area.) Neurologic: non-focal exam, pupils equal and round, CN II-XII normal, other (+ contractures) Psychiatric: anxious CBC and BMP: 11/15/18 07:13 11/15/18 07:13 ABG, PT/INR, D-dimer: ABG POC ABG pH 7.494 (7.35-7.45) H 11/01/18 15:27 POC ABG pCO2 34.5 (35-45) L 11/01/18 15:27 POC ABG pO2 139 (80-105) H 11/01/18 15:27 POC ABG HCO3 26.5 (22-26 mml/L) 11/01/18 15:27 POC ABG Total CO2 28 (23-27mmol/L) 11/01/18 15:27 POC ABG O2 Sat 99 11/01/18 15:27 PT/INR, D-dimer PT 16.3 Sec. (12.2-14.9) H 11/01/18 14:50 INR 1.35 (0.87-1.13) H 11/01/18 14:50 Abnormal lab findings: Abnormal Labs 11/01/18 11/01/18 11/01/18 14:50 14:50 14:50 WBC 15.3 H RBC 2.76 L Hgb 7.9 L Hct 23.5 L MCH MCHC RDW 18.3 H Plt Count 567 H Lymph % (Auto) 6.5 L [place] % (Auto) 8.5 H Eos % (Auto) Lymph # 1.0 L [place] # 1.3 H Eos # Seg Neutrophils % 83.4 H Seg Neutrophils # 12.7 H PT 16.3 H INR 1.35 H POC ABG pH POC ABG pCO2 POC ABG pO2 VBG pH Sodium Potassium Chloride Carbon Dioxide BUN 49 H Glucose 132 H POC Glucose AST 90 H ALT 77 H Alkaline Phosphatase 350 H NT-Pro-B Natriuret Pep Albumin 1.6 L Urine WBC (Auto) Crossmatch 11/01/18 11/01/18 11/01/18 14:50 14:50 15:27 WBC RBC Hgb Hct MCH MCHC RDW Plt Count Lymph % (Auto) [place] % (Auto) Eos % (Auto) Lymph # [place] # Eos # Seg Neutrophils % Seg Neutrophils # PT INR POC ABG pH 7.494 H POC ABG pCO2 34.5 L POC ABG pO2 139 H VBG pH 7.499 H Sodium Potassium Chloride Carbon Dioxide BUN Glucose POC Glucose AST ALT Alkaline Phosphatase NT-Pro-B Natriuret Pep 6776 H Albumin Urine WBC (Auto) Crossmatch 11/01/18 11/03/18 11/03/18 15:57 03:41 03:41 WBC 12.8 H RBC 2.55 L Hgb 6.9 L Hct 22.2 L MCH 27 L MCHC 31 L RDW 17.9 H Plt Count 519 H Lymph % (Auto) [place] % (Auto) Eos % (Auto) Lymph # [place] # Eos # Seg Neutrophils % Seg Neutrophils # PT INR POC ABG pH POC ABG pCO2 POC ABG pO2 VBG pH Sodium 147 H Potassium Chloride 110.3 H Carbon Dioxide BUN 55 H Glucose POC Glucose AST ALT Alkaline Phosphatase NT-Pro-B Natriuret Pep Albumin Urine WBC (Auto) > 182.0 H Crossmatch 11/03/18 11/04/18 11/04/18 12:51 05:12 05:12 WBC 11.5 H RBC 2.94 L Hgb 8.3 L Hct 25.3 L MCH MCHC RDW 17.3 H Plt Count 514 H Lymph % (Auto) [place] % (Auto) Eos % (Auto) Lymph # [place] # Eos # Seg Neutrophils % Seg Neutrophils # PT INR POC ABG pH POC ABG pCO2 POC ABG pO2 VBG pH Sodium 147 H Potassium Chloride 112.4 H Carbon Dioxide BUN 52 H Glucose POC Glucose AST ALT Alkaline Phosphatase NT-Pro-B Natriuret Pep Albumin Urine WBC (Auto) Crossmatch See Detail 11/05/18 11/05/18 11/06/18 04:50 04:50 05:42 WBC RBC 3.03 L 2.80 L Hgb 8.7 L 7.9 L Hct 26.6 L 24.7 L MCH MCHC RDW 17.1 H 17.0 H Plt Count 502 H 478 H Lymph % (Auto) 10.4 L [place] % (Auto) 8.6 H Eos % (Auto) 4.7 H Lymph # 1.0 L [place] # Eos # 0.5 H Seg Neutrophils % 75.6 H Seg Neutrophils # PT INR POC ABG pH POC ABG pCO2 POC ABG pO2 VBG pH Sodium 149 H Potassium Chloride 114.4 H Carbon Dioxide 21 L BUN 50 H Glucose 108 H POC Glucose AST ALT Alkaline Phosphatase NT-Pro-B Natriuret Pep Albumin Urine WBC (Auto) Crossmatch 11/06/18 11/11/18 11/12/18 05:42 18:54 00:22 WBC RBC Hgb Hct MCH MCHC RDW Plt Count Lymph % (Auto) [place] % (Auto) Eos % (Auto) Lymph # [place] # Eos # Seg Neutrophils % Seg Neutrophils # PT INR POC ABG pH POC ABG pCO2 POC ABG pO2 VBG pH Sodium 149 H Potassium Chloride 113.4 H Carbon Dioxide BUN 50 H Glucose 121 H POC Glucose 114 H 123 H AST ALT Alkaline Phosphatase NT-Pro-B Natriuret Pep Albumin Urine WBC (Auto) Crossmatch 11/12/18 11/12/18 11/13/18 06:49 11:35 06:34 WBC RBC Hgb Hct MCH MCHC RDW Plt Count Lymph % (Auto) [place] % (Auto) Eos % (Auto) Lymph # [place] # Eos # Seg Neutrophils % Seg Neutrophils # PT INR POC ABG pH POC ABG pCO2 POC ABG pO2 VBG pH Sodium Potassium Chloride Carbon Dioxide BUN Glucose POC Glucose 129 H 123 H 128 H AST ALT Alkaline Phosphatase NT-Pro-B Natriuret Pep Albumin Urine WBC (Auto) Crossmatch 11/13/18 11/13/18 11/13/18 09:26 09:26 15:13 WBC RBC 3.08 L Hgb 8.6 L Hct 27.3 L MCH MCHC 31 L RDW 18.3 H Plt Count 504 H Lymph % (Auto) 11.7 L [place] % (Auto) 7.5 H Eos % (Auto) 7.0 H Lymph # [place] # Eos # 0.7 H Seg Neutrophils % 72.9 H Seg Neutrophils # PT INR POC ABG pH POC ABG pCO2 POC ABG pO2 VBG pH Sodium 153 H Potassium 6.3 H* 5.8 H Chloride 122.3 H Carbon Dioxide 21 L BUN 38 H Glucose 112 H POC Glucose AST ALT Alkaline Phosphatase NT-Pro-B Natriuret Pep Albumin Urine WBC (Auto) Crossmatch 11/13/18 11/13/18 11/14/18 22:10 23:45 13:17 WBC RBC Hgb Hct MCH MCHC RDW Plt Count Lymph % (Auto) [place] % (Auto) Eos % (Auto) Lymph # [place] # Eos # Seg Neutrophils % Seg Neutrophils # PT INR POC ABG pH POC ABG pCO2 POC ABG pO2 VBG pH Sodium 155 H Potassium 5.3 H Chloride 122.3 H Carbon Dioxide BUN 35 H Glucose 113 H POC Glucose 111 H 142 H AST ALT Alkaline Phosphatase NT-Pro-B Natriuret Pep Albumin Urine WBC (Auto) Crossmatch Allied health notes reviewed: nursing
--- NOTE | 2018-11-14 17:28 | Progress Note ---
Assessment and Plan /Sepsis with MRSA bacteremia, UTI, Infected decub ulcer POA, osteomyelitis poa - Patient had being multiple admission in the past including this one for similar situation - Previously discussed multiple time with family for hospice placement but they refused - Patient was previously discharged with vancomycin for MRSA bacteremia - He readmitted this time while he was on vancomycin and blood cultures still growing MRSA - Changed antibiotic to daptomycin per ID - at discharge will need daptomycin 400 mg IV q day for 6 weeks until 12/16/2018, Order placed with case management /Sacral pressure ulcer -infected. POA WOUND CARE CONSULTed. CONTINUE ABX. Debridement done by Dr Man Amputation recommended and the daughter refused /Acute on chronic encephalopathy - Due to sepsis and underlying dementia - Continue to provide supportive care /Acute hypoxemic Respiratory failure Likely from underlying CHF exacerbation and profound sepsis cont Supplemental oxygen, nebulizer therapy, mgt per pulmonology / CHFeEF 30-35% with exacerbation, poa - Continue to monitor in's and O's, daily weight, aspirin and statin and beta chandan /Anemia of chronic disease Transfused one unit PRBC hemoglobin is stable /Seizure Continue current therapy, seizure precautions. 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 Wynne. Family still wants to continue the antibiotic treatment, but they mention if antibiotic treatment fail s this time and patient continued to spike fever or remains bacteremic with daptomycin they would possibly consider hospice. Family also considering for DO NOT RESUSCITATE and does not want any life support for the patient. [facility] as soon as isolation room is available. Brief history: 67-year-old male with history of HTN, CVA, Obstructive Uropathy, Diastolic CHF, Contracture, Sacral Decubitus Ulcers, [place], DM, OA, Seizure Disorder, COPD, Dementia, BPH presents to ED for evaluation. Pt is stuporous and unable to provide history. Pt history taken from ED Staff, EMS, and SNF Staff. As per staff, the patient was found to have respiratory distress upon evaluation this morning. Pt found to have pulse oximetry in the 80's. EMS notified and patient subsequently transported to [facility] for further care and evaluation. Pt seen and evaluated in ED and found to have UTI, Sepsis, Encephalopathy as well as Acute Hypoxemic Respiratory Failure. Pt initiated on NIPPV in ED with improvement in symptoms. Pt admitted to IMCU and initiated on Sepsis protocol. Prior admission on 10/01/18 reviewed. Extensive discussion with family about patients poor prognosis surgery consulted for possible debridment ID following, Pulmonary status improved Continue isolation care, Chaudhary placed by Urology please do not remove Hospitalist Physical The patient appeared stuporous, does not follow any command. Vital signs as documented. Head exam is unremarkable. No scleral icterus . Neck is without jugular venous distension, thyromegaly, or carotid bruits. Lungs are clear to auscultation. Cardiac exam reveals regular rate and Rhythm. First and second heart sounds normal. No murmurs, rubs or gallops. Abdominal exam reveals normal bowel sounds, no masses, no organomegaly and no aortic enlargement. Extremities contracted extremities. 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 Subjective Date of service: 11/14/18 Principal diagnosis: Severe Sepsis; Ac. Hypoxemic Resp failure; Anemia; Seizure; UTI; BPH Interval history: Patient seen and examined. Medical records and medication list reviewed. No acute event overnight noted by the RN. No acute change in clinical status Had a lengthy discussion with the family members about clinical status, management and prognosis Objective - Constitutional Vitals: Vital Signs - 12hr 11/14/18 11/14/18 11/14/18 07:20 07:21 10:00 Pulse Rate 110 H Pulse Rate [ 114 H Bilateral Throughout] Respiratory 18 Rate [Bilateral Throughout] O2 Sat by Pulse 94 Oximetry 11/14/18 10:29 Pulse Rate 107 H Pulse Rate [ Bilateral Throughout] Respiratory Rate [Bilateral Throughout] O2 Sat by Pulse Oximetry - Labs CBC & Chem 7: 11/15/18 07:13 11/16/18 01:15 Labs: Abnormal lab results 11/13/18 11/13/18 11/14/18 Range/Units 22:10 23:45 13:17 Sodium 155 H (137-145) mmol/L Potassium 5.3 H (3.6-5.0) mmol/L Chloride 122.3 H (98-107) mmol/L BUN 35 H (9-20) mg/dL Glucose 113 H (75-100) mg/dL POC Glucose 111 H 142 H (70-105)
[2018-11-14] MEDS: MORPHINE IV PRN ×2 (19:13→21:49)
[2018-11-14] MEDS: SODIUM CHLORIDE FLUSH SYRINGE 10 ML IV SCH (19:14)
[2018-11-15] MEDS: DAKIN'S HALF STRENGTH TP SCH ×2 (00:57→14:00)
[2018-11-15] MEDS: NACL 0.9% IV SCH ×2 (06:29→23:15)
[2018-11-15] MEDS: DAPTOMYCIN IV SCH ×2 (06:29→23:15)
[2018-11-15] MEDS: NORCO 5/325 PO PRN (06:30)
[2018-11-15] MEDS: SODIUM CHLORIDE FLUSH SYRINGE 10 ML IV SCH ×3 (06:43→23:15)
[2018-11-15] MEDS: DUONEB *Not for PRN Use IH SCH ×2 (07:45→20:26)
[2018-11-15 07:55] LABS: BUN/Creatinine Ratio 32; Blood Urea Nitrogen 38 mg/dL (9-20); Calcium 8.5 mg/dL (8.4-10.2); Hemolysis Index 3
[2018-11-15 08:03] LABS: Basophils # (Auto) 0.1 K/mm3 (0.0-0.1); Basophils % (Auto) 0.8 % (0.0-1.8); Eosinophils # (Auto) 0.5 K/mm3 (0.0-0.4); Eosinophils % (Auto) 3.9 % (0.0-4.3); Hematocrit 24.5 % (35.5-45.6); Hemoglobin 7.8 gm/dl (11.8-15.2); Lymphocytes # (Auto) 1.2 K/mm3 (1.2-5.4); Mean Corpuscular HGB Conc 32 % (32-34); Mean Corpuscular Volume 87 fl (84-94); Monocytes % (Auto) 7.5 % (0.0-7.3); Platelet Count 454 K/mm3 (140-440); Red Blood Count 2.81 M/mm3 (3.65-5.03); Red Cell Distribution Width 18.2 % (13.2-15.2)
[2018-11-15] MEDS: LOVENOX SUB-Q SCH (09:35)
[2018-11-15] MEDS: KEPPRA FEEDTUBE SCH ×2 (09:35→23:14)
[2018-11-15] MEDS: COREG PO SCH ×2 (09:36→23:15)
[2018-11-15] MEDS: VITAMIN C FEEDTUBE SCH ×2 (09:36→23:14)
[2018-11-15] MEDS: Centrum Liq FEEDTUBE SCH (09:36)
--- NOTE | 2018-11-15 10:11 | Progress Note ---
Assessment and Plan Cultures: Blood culture 10/01/2018 MRSA 2 of 4. Blood culture 10/03/2018 MRSA Blood culture 10/08/2018 no growth Blood culture 10/11/2018 no growth Blood culture 10/21/2018 no growth Blood culture 11/01/2018 Staph haemolyticus 2 of 4 bottles, resistent to methicillin and MRSA 1 of 4 bottles Blood culture 11/04/2018 no growth Cultures: Blood culture 10/01/2018 MRSA 2 of 4. Blood culture 10/03/2018 MRSA Blood culture 10/08/2018 no growth Blood culture 10/11/2018 no growth Blood culture 10/21/2018 no growth Blood culture 11/01/2018 Staph haemolyticus 2 of 4 bottles, resistent to methicillin and MRSA 1 of 4 bottles Blood culture 11/04/2018 no growth Assessment: 67 y/o male with history of HTN, CVA, Obstructive Uropathy, Contracture, Multiple Decubitus Ulcers, DC, DM, OA, Seizure Disorder, COPD, Dementia, Debility, BPH, well known to ID due to multiple admissions secondary to d ucubitus ulcers infections and recurrent bacteremia, last time admitted on 10/02/2018 [facility] with [facility] decubitus [facility] mainly active large left trochanteric with bone exposure and sacral with bone exposure. Patient's infection was deemed incurable and hospice was recommended. Patient was discharged back to ID on IV vancomycin 1 gm every 48 hours for total 6 weeks ending 11/12/2018 via neck tunneled cath. Patient was readmitted on due to AMS, worsening SOB. Patient is lethargic and unable to provide history. At the ID he was found to have respiratory distress upon evaluation the morning of admission,pulse oximetry in the 80's: 1) Severe Sepsis: no fever x 24h Leukocytosis WBC 13K today.. Etiology most likely Recurrent Staph bacteremia +/- CAUTI. 2) Staph haemolyticus and MRSA bacteremia with recent MRSA bacteremia: Blood culture 11/01/2018 Staph haemolyticus 2 of 4 bottles and MRSA 1 of 4. Source likely multiple decubitus ulcers or Neck IV central line. Patient is failing vancomycin. He has a tunneled neck cath. Recent TTE negative for vegetations. On daptomycin. 3) Recent septic shock due to polymicrobial bacteremia ESBL and carbapenem resistant E coli, MDR Proteus, Strep and E faecalis on 07/29/2018 probably from multiple infected decubitus ulcers and less likely UTI. Repeat blood cultures 07/31/2018 showed same MDR E coli 1 of 4 bottles then 08/06/2018 blood cultures showed no growth. Patient was treated with Vabomere for 14 days. 4) Multiple infected decubitus ulcers: His prognosis has been poor and hospice has been recommended several times in the past but family has declined. declined. His wounds are not curable considering his contractures, bed bound status and poor nutritional status. There was also suspicion of septic arthritis of left hip from decubitus ulcer. S/p debridement of multiple pressure ulcerations on 11/07/2018- stage 4 left hip pressure ulceration was surgically excisionally debrided of necrotic bone, stage 3 sacral, right ankle and left heel pressure ulcers were then surgically, excisionally debrided of necrotic SQ fat, stage 4 right heel, left lateral heel and right lateral leg ulcerations were surgically, excisionally debrided of necrotic SQ tissue, muscle and fascia.. s/p debridement 11/13/18 of multiple stage 3/4 pressure u lcers sacrum, right lateral leg, right lateral ankle, left heel, left hip and right heel Dr Man recommended bilateral AKA, patient and daughter refused. Dr Man recommended Orthopedic consultation for possible left hip disarticulation as his left hip joint is crumbling and has profuse purulent drainage. 5) Recurrent UTI: patient's bright was removed home 2 weeks ago, a new bright placed here 6) Acute encephalopathy: multifactorial. 7) Acute resp failure: was on BIPAP now NC O2. EF 30-35% pericaldial and pleural effusion. Recommendations: -Long discussion with family members on 11/14/18.. Family wants to continue all care including antibiotics, but refuses surgery and they are considering DNR. Family was educated again about the futility of continuing antibiotics and the increased risks for side effects including but not limited to renal failure, C diff, more resistant bacteria. - continue daptomycin IV for now D11 - always contact isolation - at discharge will do daptomycin 400 mg IV q day for 6 weeks until 12/16/2018, Order placed with case management -patient has difficult IV access, will keep neck central line ID signing off, please call for questions. [facility] M: [phone] O:[phone] Subjective Date of service: 11/15/18 Principal diagnosis: Severe Sepsis; Ac. Hypoxemic Resp failure; Anemia; Seizure; UTI; BPH Interval history: Patient seen and examined. Awake. Alert. verbalizes generalized pain. No fevers. Objective - Exam Narrative Exam: General appearance: Awake. Alert. Acute pain. Eyes: anicteric sclerae, moist conjunctivae; no lid-lag; PERRLA HENT: Atraumatic; oropharynx limited Neck: Trachea midline; supple, no thyromegaly or lymphadenopathy Lungs: CTA CV: RRR no murmur Abdomen: Soft, non-tender Extremities: marked legs contractions, multiple decubitus ulcers covered with dressings Skin: multiple skin tears Psych: Calm Neuro: alert - Constitutional Vitals: Vital Signs Temp Pulse Resp BP Pulse Ox 98.7 F 94 H 20 116/75 93 11/15/18 03:57 11/15/18 09:36 11/15/18 07:55 11/15/18 09:36 11/15/18 08:23 Temperature -Last 24 Hours Temperature 98.7 F Temperature 99.6 F Temperature 98.3 F - Labs CBC & Chem 7: 11/15/18 07:13 11/15/18 07:13 Labs: Abnormal lab results 11/14/18 11/14/18 11/15/18 Range/Units 13:17 19:08 00:31 WBC (4.5-11.0) K/mm3 RBC (3.65-5.03) M/mm3 Hgb (11.8-15.2) gm/dl Hct (35.5-45.6) % RDW (13.2-15.2) % Plt Count (140-440) K/mm3 Lymph % (Auto) (13.4-35.0) % [place] % (Auto) (0.0-7.3) % [place] # (0.0-0.8) K/mm3 Eos # (0.0-0.4) K/mm3 Seg Neutrophils % (40.0-70.0) % Seg Neutrophils # (1.8-7.7) K/mm3 Sodium (137-145) mmol/L Potassium (3.6-5.0) mmol/L Chloride (98-107) mmol/L BUN (9-20) mg/dL Glucose (75-100) mg/dL POC Glucose 142 H 116 H 125 H (70-105) 11/15/18 11/15/18 11/15/18 Range/Units 06:45 07:13 07:13 WBC 13.2 H (4.5-11.0) K/mm3 RBC 2.81 L (3.65-5.03) M/mm3 Hgb 7.8 L (11.8-15.2) gm/dl Hct 24.5 L (35.5-45.6) % RDW 18.2 H (13.2-15.2) % Plt Count 454 H (140-440) K/mm3 Lymph % (Auto) 9.0 L (13.4-35.0) % [place] % (Auto) 7.5 H (0.0-7.3) % [place] # 1.0 H (0.0-0.8) K/mm3 Eos # 0.5 H (0.0-0.4) K/mm3 Seg Neutrophils % 78.8 H (40.0-70.0) % Seg Neutrophils # 10.4 H (1.8-7.7) K/mm3 Sodium 149 H (137-145) mmol/L Potassium 5.2 H (3.6-5.0) mmol/L Chloride 117.2 H (98-107) mmol/L BUN 38 H (9-20) mg/dL Glucose 114 H (75-100) mg/dL POC Glucose 131 H (70-105)
[2018-11-15] MEDS: ZINC SULFATE PO SCH (13:55)
--- NOTE | 2018-11-15 14:54 | Progress Note ---
Assessment and Plan / Paroxysmal SVTs -Cardiology was consulted during this admission -Patient was started on Coreg 6.25 and twice a day - Continue to monitor for now, we'll further follow up with cardiology if having SVTs more frequently - We'll monitor potassium, magnesium /Sepsis with MRSA bacteremia, UTI, Infected decub ulcer POA, osteomyelitis poa - Patient had being multiple admission in the past including this one for similar situation - Previously discussed multiple time with family for hospice placement but they refused - Patient was previously discharged with vancomycin for MRSA bacteremia - He readmitted this time while he was on vancomycin and blood cultures still growing MRSA - Changed antibiotic to daptomycin per ID - at discharge will need daptomycin 400 mg IV q day for 6 weeks until 12/16/2018, Order placed with case management /Sacral pressure ulcer -infected. POA WOUND CARE CONSULTed. CONTINUE ABX. Debridement done by Dr Man Amputation recommended and the daughter refused /Acute on chronic encephalopathy - Due to sepsis and underlying dementia - Continue to provide supportive care /Acute hypoxemic Respiratory failure Likely from underlying CHF exacerbation and profound sepsis cont Supplemental oxygen, nebulizer therapy, mgt per pulmonology / CHFeEF 30-35% with exacerbation, poa - Continue to monitor in's and O's, daily weight, aspirin and statin and beta chandan, patient is allergic to ACEI /Anemia of chronic disease Transfused one unit PRBC hemoglobin is stable /Seizure Continue current therapy, seizure precautions. / BPH status post TURP and obstructive uropathy Continue Chaudhary catherter placed by urology during this admission /Chronic Dementia supportive care /DVT prophylaxis Prophylactic lovenox POOR PROGNOSIS Disposition; Arranged family meeting on 11/14 with rifle case repairer patient's daughters, granddaughter and ex- along with Dr. Wynne. Family still wants to continue the antibiotic treatment, but they mention if antibiotic treatment fails this time and patient continued to spike fever or remains bacteremic with daptomycin they would possibly consider hospice. Family also considering for DO NOT RESUSCITATE and does not want any life support for the patient. Patient will be discharged back to the [facility] as soon as isolation room is available. Brief history: 67-year-old male with history of HTN, CVA, Obstructive Uropathy, Diastolic CHF, Contracture, Sacral Decubitus Ulcers, AR, DM, OA, Seizure Disorder, COPD, Dem entia, BPH presents to ED for evaluation. Pt is stuporous and unable to provide history. Pt history taken from ED Staff, EMS, and SNF Staff. As per staff, the patient was found to have respiratory distress upon evaluation this morning. Pt found to have pulse oximetry in the 80's. EMS notified and patient subsequently transported to [facility] for further care and evaluation. Pt seen and evaluated in ED and found to have UTI, Sepsis, Encephalopathy as well as Acute Hypoxemic Respiratory Failure. Pt initiated on NIPPV in ED with improvement in symptoms. Pt admitted to [facility] and initiated on Sepsis protocol. Prior admission on 10/01/18 reviewed. Extensive discussion with family about patients poor prognosis surgery consulted for possible debridment ID following, Pulmonary status improved Continue isolation care, Chaudhary placed by Urology please do not remove Discharge pending on isolation room availability at the [facility] Hospitalist Physical The patient appeared stuporous, does not follow any command. Vital signs as documented. Head exam is unremarkable. No scleral icterus . Neck is without jugular venous distension, thyromegaly, or carotid bruits. Lungs are clear to auscultation. Cardiac exam reveals regular rate and Rhythm. First and second heart sounds normal. No murmurs, rubs or gallops. Abdominal exam reveals normal bowel sounds, no masses, no organomegaly and no aortic enlargement. Extremities contracted extremities. MERCHANDISE MANAGER: Does not follow command, contracted extremities Skin; multiple decubitus ulcers, including the sacrum and the heel. Subjective Date of service: 11/15/18 Principal diagnosis: Severe Sepsis; Ac. Hypoxemic Resp failure; Anemia; Seizure; UTI; BPH Interval history: Patient seen and examined. Medical records and medication list reviewed. No acute event overnight noted by the RN. Patient had 8 episodes of SVT on monitor Objective - Constitutional Vitals: Vital Signs - 12hr 11/15/18 11/15/18 11/15/18 03:57 07:45 07:55 Temperature 98.7 F Pulse Rate 99 H Pulse Rate [ 100 H 100 H Bilateral Throughout] Respiratory 20 Rate Respiratory 19 20 Rate [Bilateral Throughout] Blood Pressure 120/73 O2 Sat by Pulse 89 Oximetry 11/15/18 11/15/18 08:23 09:36 Temperature Pulse Rate 94 H Pulse Rate [ Bilateral Throughout] Respiratory Rate Respiratory Rate [Bilateral Throughout] Blood Pressure 116/75 O2 Sat by Pulse 93 Oximetry - Labs CBC & Chem 7: 11/15/18 07:13 11/16/18 01:15 Labs: Abnormal lab results 11/14/18 11/15/18 11/15/18 Range/Units 19:08 00:31 06:45 WBC (4.5-11.0) K/mm3 RBC (3.65-5.03) M/mm3 Hgb (11.8-15.2) gm/dl Hct (35.5-45.6) % RDW (13.2-15.2) % Plt Count (140-440) K/mm3 Lymph % (Auto) (13.4-35.0) % [place] % (Auto) (0.0-7.3) % [place] # (0.0-0.8) K/mm3 Eos # (0.0-0.4) K/mm3 Seg Neutrophils % (40.0-70.0) % Seg Neutrophils # (1.8-7.7) K/mm3 Sodium (137-145) mmol/L Potassium (3.6-5.0) mmol/L Chloride (98-107) mmol/L BUN (9-20) mg/dL Glucose (75-100) mg/dL POC Glucose 116 H 125 H 131 H (70-105) 11/15/18 11/15/18 Range/Units 07:13 07:13 WBC 13.2 H (4.5-11.0) K/mm3 RBC 2.81 L (3.65-5.03) M/mm3 Hgb 7.8 L (11.8-15.2) gm/dl Hct 24.5 L (35.5-45.6) % RDW 18.2 H (13.2-15.2) % Plt Count 454 H (140-440) K/mm3 Lymph % (Auto) 9.0 L (13.4-35.0) % [place] % (Auto) 7.5 H (0.0-7.3) % [place] # 1.0 H (0.0-0.8) K/mm3 Eos # 0.5 H (0.0-0.4) K/mm3 Seg Neutrophils % 78.8 H (40.0-70.0) % Seg Neutrophils # 10.4 H (1.8-7.7) K/mm3 Sodium 149 H (137-145) mmol/L Potassium 5.2 H (3.6-5.0) mmol/L Chloride 117.2 H (98-107) mmol/L BUN 38 H (9-20) mg/dL Glucose 114 H (75-100) mg/dL POC Glucose (70-105)
--- NOTE | 2018-11-15 15:33 | Progress Note ---
Assessment and Plan Severe Sepsis Acute Hypoxemic Respiratory failure Anemia of chronic disease Seizure UTI (urinary tract infection) BPH Dementia sacral pressure ulcer -infected. POA - continue supplemental oxygen as needed to keep O2 sat's > 90% - continue bronchodilators with pulmonary hygiene per RT - complete antibiotics per ID rec's (On Daptomycin) - continue AED's for seizure control - fall precautions - neurochecks - aspiration precautions - enteral nutrition as tolerated - continue wound care per WCT - continue bright catheter re: Obstructive Uropathy - GI & VTE prophylaxis - continue mobility protocol for pressure ulcer prophylaxis - continue other care per attending / other consultants ...... remains Full CODE ... re-evaluate in am & prn Subjective Date of service: 11/15/18 Principal diagnosis: Severe Sepsis; Ac. Hypoxemic Resp failure; Anemia; Seizure; UTI; BPH Interval history: Patient is seen today for: Severe Sepsis; Acute Hypoxemic Respiratory failure; Anemia of chronic disease; Seizure; UTI (urinary tract infection); BPH; Dementia; sacral pressure ulcer -infected. POA Seen and examined at bedside; 24-hour events reviewed; nursing and respiratory care staff consulted; no adverse overnight events reported to me; resting peacefully in bed; no new issues respiratory-soto; breathing is less labored today; No N/V/F/C Objective Vital Signs - 12hr 11/15/18 11/15/18 11/15/18 03:57 07:45 07:55 Temperature 98.7 F Pulse Rate 99 H Pulse Rate [ 100 H 100 H Bilateral Throughout] Respiratory 20 Rate Respiratory 19 20 Rate [Bilateral Throughout] Blood Pressure 120/73 O2 Sat by Pulse 89 Oximetry 11/15/18 11/15/18 11/15/18 08:23 09:36 10:00 Temperature Pulse Rate 94 H Pulse Rate [ Bilateral Throughout] Respiratory 20 Rate Respiratory Rate [Bilateral Throughout] Blood Pressure 116/75 O2 Sat by Pulse 93 Oximetry Constitutional: no acute distress, alert, other (Patient weak and contacted) Eyes: non-icteric ENT: oropharynx moist Neck: no lymphadenopathy, no JVD, other (mild stiffness / contracture) Effort: mildly labored Ascultation: Bilateral: diminished breath sounds, rhonchi Percussion: Bilateral: not dull Cardiovascular: regular rate and rhythm Gastrointestinal: normoactive bowel sounds, soft, non-tender, non-distended Integumentary: rash Extremities: no cyanosis, no edema, pulses normal, other (Patient has pressure ulcer at multiple areas, including sacral area.) Neurologic: non-focal exam, pupils equal and round, CN II-XII normal, other (+ contractures) Psychiatric: anxious CBC and BMP: 11/17/18 08:02 11/17/18 08:02 ABG, PT/INR, D-dimer: ABG POC ABG pH 7.494 (7.35-7.45) H 11/01/18 15:27 POC ABG pCO2 34.5 (35-45) L 11/01/18 15:27 POC ABG pO2 139 (80-105) H 11/01/18 15:27 POC ABG HCO3 26.5 (22-26 mml/L) 11/01/18 15:27 POC ABG Total CO2 28 (23-27mmol/L) 11/01/18 15:27 POC ABG O2 Sat 99 11/01/18 15:27 PT/INR, D-dimer PT 16.3 Sec. (12.2-14.9) H 11/01/18 14:50 INR 1.35 (0.87-1.13) H 11/01/18 14:50 Abnormal lab findings: Abnormal Labs 11/01/18 11/01/18 11/01/18 14:50 14:50 14:50 WBC 15.3 H RBC 2.76 L Hgb 7.9 L Hct 23.5 L MCH MCHC RDW 18.3 H Plt Count 567 H Lymph % (Auto) 6.5 L [place] % (Auto) 8.5 H Eos % (Auto) Lymph # 1.0 L [place] # 1.3 H Eos # Seg Neutrophils % 83.4 H Seg Neutrophils # 12.7 H PT 16.3 H INR 1.35 H POC ABG pH POC ABG pCO2 POC ABG pO2 VBG pH Sodium Potassium Chloride Carbon Dioxide BUN 49 H Glucose 132 H POC Glucose AST 90 H ALT 77 H Alkaline Phosphatase 350 H NT-Pro-B Natriuret Pep Albumin 1.6 L Urine WBC (Auto) Crossmatch 11/01/18 11/01/18 11/01/18 14:50 14:50 15:27 WBC RBC Hgb Hct MCH MCHC RDW Plt Count Lymph % (Auto) [place] % (Auto) Eos % (Auto) Lymph # [place] # Eos # Seg Neutrophils % Seg Neutrophils # PT INR POC ABG pH 7.494 H POC ABG pCO2 34.5 L POC ABG pO2 139 H VBG pH 7.499 H Sodium Potassium Chloride Carbon Dioxide BUN Glucose POC Glucose AST ALT Alkaline Phosphatase NT-Pro-B Natriuret Pep 6776 H Albumin Urine WBC (Auto) Crossmatch 11/01/18 11/03/18 11/03/18 15:57 03:41 03:41 WBC 12.8 H RBC 2.55 L Hgb 6.9 L Hct 22.2 L MCH 27 L MCHC 31 L RDW 17.9 H Plt Count 519 H Lymph % (Auto) [place] % (Auto) Eos % (Auto) Lymph # [place] # Eos # Seg Neutrophils % Seg Neutrophils # PT INR POC ABG pH POC ABG pCO2 POC ABG pO2 VBG pH Sodium 147 H Potassium Chloride 110.3 H Carbon Dioxide BUN 55 H Glucose POC Glucose AST ALT Alkaline Phosphatase NT-Pro-B Natriuret Pep Albumin Urine WBC (Auto) > 182.0 H Crossmatch 11/03/18 11/04/18 11/04/18 12:51 05:12 05:12 WBC 11.5 H RBC 2.94 L Hgb 8.3 L Hct 25.3 L MCH MCHC RDW 17.3 H Plt Count 514 H Lymph % (Auto) [place] % (Auto) Eos % (Auto) Lymph # [place] # Eos # Seg Neutrophils % Seg Neutrophils # PT INR POC ABG pH POC ABG pCO2 POC ABG pO2 VBG pH Sodium 147 H Potassium Chloride 112.4 H Carbon Dioxide BUN 52 H Glucose POC Glucose AST ALT Alkaline Phosphatase NT-Pro-B Natriuret Pep Albumin Urine WBC (Auto) Crossmatch See Detail 11/05/18 11/05/18 11/06/18 04:50 04:50 05:42 WBC RBC 3.03 L 2.80 L Hgb 8.7 L 7.9 L Hct 26.6 L 24.7 L MCH MCHC RDW 17.1 H 17.0 H Plt Count 502 H 478 H Lymph % (Auto) 10.4 L [place] % (Auto) 8.6 H Eos % (Auto) 4.7 H Lymph # 1.0 L [place] # Eos # 0.5 H Seg Neutrophils % 75.6 H Seg Neutrophils # PT INR POC ABG pH POC ABG pCO2 POC ABG pO2 VBG pH Sodium 149 H Potassium Chloride 114.4 H Carbon Dioxide 21 L BUN 50 H Glucose 108 H POC Glucose AST ALT Alkaline Phosphatase NT-Pro-B Natriuret Pep Albumin Urine WBC (Auto) Crossmatch 11/06/18 11/11/18 11/12/18 05:42 18:54 00:22 WBC RBC Hgb Hct MCH MCHC RDW Plt Count Lymph % (Auto) [place] % (Auto) Eos % (Auto) Lymph # [place] # Eos # Seg Neutrophils % Seg Neutrophils # PT INR POC ABG pH POC ABG pCO2 POC ABG pO2 VBG pH Sodium 149 H Potassium Chloride 113.4 H Carbon Dioxide BUN 50 H Glucose 121 H POC Glucose 114 H 123 H AST ALT Alkaline Phosphatase NT-Pro-B Natriuret Pep Albumin Urine WBC (Auto) Crossmatch 11/12/18 11/12/18 11/13/18 06:49 11:35 06:34 WBC RBC Hgb Hct MCH MCHC RDW Plt Count Lymph % (Auto) [place] % (Auto) Eos % (Auto) Lymph # [place] # Eos # Seg Neutrophils % Seg Neutrophils # PT INR POC ABG pH POC ABG pCO2 POC ABG pO2 VBG pH Sodium Potassium Chloride Carbon Dioxide BUN Glucose POC Glucose 129 H 123 H 128 H AST ALT Alkaline Phosphatase NT-Pro-B Natriuret Pep Albumin Urine WBC (Auto) Crossmatch 11/13/18 11/13/18 11/13/18 09:26 09:26 15:13 WBC RBC 3.08 L Hgb 8.6 L Hct 27.3 L MCH MCHC 31 L RDW 18.3 H Plt Count 504 H Lymph % (Auto) 11.7 L [place] % (Auto) 7.5 H Eos % (Auto) 7.0 H Lymph # [place] # Eos # 0.7 H Seg Neutrophils % 72.9 H Seg Neutrophils # PT INR POC ABG pH POC ABG pCO2 POC ABG pO2 VBG pH Sodium 153 H Potassium 6.3 H* 5.8 H Chloride 122.3 H Carbon Dioxide 21 L BUN 38 H Glucose 112 H POC Glucose AST ALT Alkaline Phosphatase NT-Pro-B Natriuret Pep Albumin Urine WBC (Auto) Crossmatch 11/13/18 11/13/18 11/14/18 22:10 23:45 13:17 WBC RBC Hgb Hct MCH MCHC RDW Plt Count Lymph % (Auto) [place] % (Auto) Eos % (Auto) Lymph # [place] # Eos # Seg Neutrophils % Seg Neutrophils # PT INR POC ABG pH POC ABG pCO2 POC ABG pO2 VBG pH Sodium 155 H Potassium 5.3 H Chloride 122.3 H Carbon Dioxide BUN 35 H Glucose 113 H POC Glucose 111 H 142 H AST ALT Alkaline Phosphatase NT-Pro-B Natriuret Pep Albumin Urine WBC (Auto) Crossmatch 11/14/18 11/15/18 11/15/18 19:08 00:31 06:45 WBC RBC Hgb Hct MCH MCHC RDW Plt Count Lymph % (Auto) [place] % (Auto) Eos % (Auto) Lymph # [place] # Eos # Seg Neutrophils % Seg Neutrophils # PT INR POC ABG pH POC ABG pCO2 POC ABG pO2 VBG pH Sodium Potassium Chloride Carbon Dioxide BUN Glucose POC Glucose 116 H 125 H 131 H AST ALT Alkaline Phosphatase NT-Pro-B Natriuret Pep Albumin Urine WBC (Auto) Crossmatch 11/15/18 11/15/18 07:13 07:13 WBC 13.2 H RBC 2.81 L Hgb 7.8 L Hct 24.5 L MCH MCHC RDW 18.2 H Plt Count 454 H Lymph % (Auto) 9.0 L [place] % (Auto) 7.5 H Eos % (Auto) Lymph # [place] # 1.0 H Eos # 0.5 H Seg Neutrophils % 78.8 H Seg Neutrophils # 10.4 H PT INR POC ABG pH POC ABG pCO2 POC ABG pO2 VBG pH Sodium 149 H Potassium 5.2 H Chloride 117.2 H Carbon Dioxide BUN 38 H Glucose 114 H POC Glucose AST ALT Alkaline Phosphatase NT-Pro-B Natriuret Pep Albumin Urine WBC (Auto) Crossmatch Allied health notes reviewed: nursing
[2018-11-16] MEDS: DAKIN'S HALF STRENGTH TP SCH ×3 (05:38→22:17)
--- NOTE | 2018-11-16 08:03 | Progress Note ---
Assessment and Plan Severe Sepsis Acute Hypoxemic Respiratory failure Anemia of chronic disease Seizure UTI (urinary tract infection) BPH Dementia sacral pressure ulcer -infected. POA - continue supplemental oxygen as needed to keep O2 sat's > 90% - continue bronchodilators with pulmonary hygiene per RT - continue AED's for seizure control - fall precautions - neurochecks - aspiration precautions - complete antibiotics per ID rec's - enteral nutrition as tolerated - continue wound care per WCT - continue bright catheter re: Obstructive Uropathy - GI & VTE prophylaxis - continue mobility protocol for pressure ulcer prophylaxis - continue other care per attending / other consultants Subjective Date of service: 11/16/18 Principal diagnosis: Severe Sepsis; Ac. Hypoxemic Resp failure; Anemia; Seizure; UTI; BPH Interval history: Patient is seen today for: Severe Sepsis; Acute Hypoxemic Respiratory failure; Anemia of chronic disease; Seizure; UTI (urinary tract infection); BPH; Dementia; sacral pressure ulcer -infected. POA Seen and examined at bedside; 24-hour events reviewed; nursing and respiratory care staff consulted; no adverse overnight events reported to me; resting peacefully in bed;he declines any surgical amputation or intervention; No N/V/F/C; Objective Vital Signs - 12hr 11/15/18 11/15/18 11/15/18 20:26 20:37 20:44 Temperature Pulse Rate Pulse Rate [ 119 H 118 H Bilateral Throughout] Respiratory Rate Respiratory 15 14 Rate [Bilateral Throughout] Blood Pressure O2 Sat by Pulse 91 Oximetry 11/15/18 11/16/18 11/16/18 23:39 02:30 03:58 Temperature 99.9 F H 99.4 F Pulse Rate 127 H 122 H 105 H Pulse Rate [ Bilateral Throughout] Respiratory 22 20 Rate Respiratory Rate [Bilateral Throughout] Blood Pressure 119/67 91/57 O2 Sat by Pulse 93 94 Oximetry Constitutional: no acute distress, alert, other (Patient weak and contacted) Eyes: non-icteric ENT: oropharynx moist Neck: no lymphadenopathy, no JVD, other (mild stiffness / contracture) Effort: mildly labored Ascultation: Bilateral: diminished breath sounds, rhonchi Percussion: Bilateral: not dull Cardiovascular: regular rate and rhythm Gastrointestinal: normoactive bowel sounds, soft, non-tender, non-distended Integumentary: rash Extremities: no cyanosis, no edema, pulses normal, other (Patient has pressure ulcer at multiple areas, including sacral area.) Neurologic: non-focal exam, pupils equal and round, CN II-XII normal, other (+ contractures) Psychiatric: anxious CBC and BMP: 11/15/18 07:13 11/16/18 01:15 ABG, PT/INR, D-dimer: ABG POC ABG pH 7.494 (7.35-7.45) H 11/01/18 15:27 POC ABG pCO2 34.5 (35-45) L 11/01/18 15:27 POC ABG pO2 139 (80-105) H 11/01/18 15:27 POC ABG HCO3 26.5 (22-26 mml/L) 11/01/18 15:27 POC ABG Total CO2 28 (23-27mmol/L) 11/01/18 15:27 POC ABG O2 Sat 99 11/01/18 15:27 PT/INR, D-dimer PT 16.3 Sec. (12.2-14.9) H 11/01/18 14:50 INR 1.35 (0.87-1.13) H 11/01/18 14:50 Abnormal lab findings: Abnormal Labs 11/01/18 11/01/18 11/01/18 14:50 14:50 14:50 WBC 15.3 H RBC 2.76 L Hgb 7.9 L Hct 23.5 L MCH MCHC RDW 18.3 H Plt Count 567 H Lymph % (Auto) 6.5 L [place] % (Auto) 8.5 H Eos % (Auto) Lymph # 1.0 L [place] # 1.3 H Eos # Seg Neutrophils % 83.4 H Seg Neutrophils # 12.7 H PT 16.3 H INR 1.35 H POC ABG pH POC ABG pCO2 POC ABG pO2 VBG pH Sodium Potassium Chloride Carbon Dioxide BUN 49 H Glucose 132 H POC Glucose Magnesium AST 90 H ALT 77 H Alkaline Phosphatase 350 H NT-Pro-B Natriuret Pep Albumin 1.6 L Urine WBC (Auto) Crossmatch 11/01/18 11/01/18 11/01/18 14:50 14:50 15:27 WBC RBC Hgb Hct MCH MCHC RDW Plt Count Lymph % (Auto) [place] % (Auto) Eos % (Auto) Lymph # [place] # Eos # Seg Neutrophils % Seg Neutrophils # PT INR POC ABG pH 7.494 H POC ABG pCO2 34.5 L POC ABG pO2 139 H VBG pH 7.499 H Sodium Potassium Chloride Carbon Dioxide BUN Glucose POC Glucose Magnesium AST ALT Alkaline Phosphatase NT-Pro-B Natriuret Pep 6776 H Albumin Urine WBC (Auto) Crossmatch 11/01/18 11/03/18 11/03/18 15:57 03:41 03:41 WBC 12.8 H RBC 2.55 L Hgb 6.9 L Hct 22.2 L MCH 27 L MCHC 31 L RDW 17.9 H Plt Count 519 H Lymph % (Auto) [place] % (Auto) Eos % (Auto) Lymph # [place] # Eos # Seg Neutrophils % Seg Neutrophils # PT INR POC ABG pH POC ABG pCO2 POC ABG pO2 VBG pH Sodium 147 H Potassium Chloride 110.3 H Carbon Dioxide BUN 55 H Glucose POC Glucose Magnesium AST ALT Alkaline Phosphatase NT-Pro-B Natriuret Pep Albumin Urine WBC (Auto) > 182.0 H Crossmatch 11/03/18 11/04/18 11/04/18 12:51 05:12 05:12 WBC 11.5 H RBC 2.94 L Hgb 8.3 L Hct 25.3 L MCH MCHC RDW 17.3 H Plt Count 514 H Lymph % (Auto) [place] % (Auto) Eos % (Auto) Lymph # [place] # Eos # Seg Neutrophils % Seg Neutrophils # PT INR POC ABG pH POC ABG pCO2 POC ABG pO2 VBG pH Sodium 147 H Potassium Chloride 112.4 H Carbon Dioxide BUN 52 H Glucose POC Glucose Magnesium AST ALT Alkaline Phosphatase NT-Pro-B Natriuret Pep Albumin Urine WBC (Auto) Crossmatch See Detail 11/05/18 11/05/18 11/06/18 04:50 04:50 05:42 WBC RBC 3.03 L 2.80 L Hgb 8.7 L 7.9 L Hct 26.6 L 24.7 L MCH MCHC RDW 17.1 H 17.0 H Plt Count 502 H 478 H Lymph % (Auto) 10.4 L [place] % (Auto) 8.6 H Eos % (Auto) 4.7 H Lymph # 1.0 L [place] # Eos # 0.5 H Seg Neutrophils % 75.6 H Seg Neutrophils # PT INR POC ABG pH POC ABG pCO2 POC ABG pO2 VBG pH Sodium 149 H Potassium Chloride 114.4 H Carbon Dioxide 21 L BUN 50 H Glucose 108 H POC Glucose Magnesium AST ALT Alkaline Phosphatase NT-Pro-B Natriuret Pep Albumin Urine WBC (Auto) Crossmatch 11/06/18 11/11/18 11/12/18 05:42 18:54 00:22 WBC RBC Hgb Hct MCH MCHC RDW Plt Count Lymph % (Auto) [place] % (Auto) Eos % (Auto) Lymph # [place] # Eos # Seg Neutrophils % Seg Neutrophils # PT INR POC ABG pH POC ABG pCO2 POC ABG pO2 VBG pH Sodium 149 H Potassium Chloride 113.4 H Carbon Dioxide BUN 50 H Glucose 121 H POC Glucose 114 H 123 H Magnesium AST ALT Alkaline Phosphatase NT-Pro-B Natriuret Pep Albumin Urine WBC (Auto) Crossmatch 11/12/18 11/12/18 11/13/18 06:49 11:35 06:34 WBC RBC Hgb Hct MCH MCHC RDW Plt Count Lymph % (Auto) [place] % (Auto) Eos % (Auto) Lymph # [place] # Eos # Seg Neutrophils % Seg Neutrophils # PT INR POC ABG pH POC ABG pCO2 POC ABG pO2 VBG pH Sodium Potassium Chloride Carbon Dioxide BUN Glucose POC Glucose 129 H 123 H 128 H Magnesium AST ALT Alkaline Phosphatase NT-Pro-B Natriuret Pep Albumin Urine WBC (Auto) Crossmatch 11/13/18 11/13/18 11/13/18 09:26 09:26 15:13 WBC RBC 3.08 L Hgb 8.6 L Hct 27.3 L MCH MCHC 31 L RDW 18.3 H Plt Count 504 H Lymph % (Auto) 11.7 L [place] % (Auto) 7.5 H Eos % (Auto) 7.0 H Lymph # [place] # Eos # 0.7 H Seg Neutrophils % 72.9 H Seg Neutrophils # PT INR POC ABG pH POC ABG pCO2 POC ABG pO2 VBG pH Sodium 153 H Potassium 6.3 H* 5.8 H Chloride 122.3 H Carbon Dioxide 21 L BUN 38 H Glucose 112 H POC Glucose Magnesium AST ALT Alkaline Phosphatase NT-Pro-B Natriuret Pep Albumin Urine WBC (Auto) Crossmatch 11/13/18 11/13/18 11/14/18 22:10 23:45 13:17 WBC RBC Hgb Hct MCH MCHC RDW Plt Count Lymph % (Auto) [place] % (Auto) Eos % (Auto) Lymph # [place] # Eos # Seg Neutrophils % Seg Neutrophils # PT INR POC ABG pH POC ABG pCO2 POC ABG pO2 VBG pH Sodium 155 H Potassium 5.3 H Chloride 122.3 H Carbon Dioxide BUN 35 H Glucose 113 H POC Glucose 111 H 142 H Magnesium AST ALT Alkaline Phosphatase NT-Pro-B Natriuret Pep Albumin Urine WBC (Auto) Crossmatch 11/14/18 11/15/18 11/15/18 19:08 00:31 06:45 WBC RBC Hgb Hct MCH MCHC RDW Plt Count Lymph % (Auto) [place] % (Auto) Eos % (Auto) Lymph # [place] # Eos # Seg Neutrophils % Seg Neutrophils # PT INR POC ABG pH POC ABG pCO2 POC ABG pO2 VBG pH Sodium Potassium Chloride Carbon Dioxide BUN Glucose POC Glucose 116 H 125 H 131 H Magnesium AST ALT Alkaline Phosphatase NT-Pro-B Natriuret Pep Albumin Urine WBC (Auto) Crossmatch 11/15/18 11/15/18 11/15/18 07:13 07:13 19:03 WBC 13.2 H RBC 2.81 L Hgb 7.8 L Hct 24.5 L MCH MCHC RDW 18.2 H Plt Count 454 H Lymph % (Auto) 9.0 L [place] % (Auto) 7.5 H Eos % (Auto) Lymph # [place] # 1.0 H Eos # 0.5 H Seg Neutrophils % 78.8 H Seg Neutrophils # 10.4 H PT INR POC ABG pH POC ABG pCO2 POC ABG pO2 VBG pH Sodium 149 H Potassium 5.2 H Chloride 117.2 H Carbon Dioxide BUN 38 H Glucose 114 H POC Glucose 141 H Magnesium AST ALT Alkaline Phosphatase NT-Pro-B Natriuret Pep Albumin Urine WBC (Auto) Crossmatch 11/16/18 11/16/18 11/16/18 01:15 01:15 06:45 WBC RBC Hgb Hct MCH MCHC RDW Plt Count Lymph % (Auto) [place] % (Auto) Eos % (Auto) Lymph # [place] # Eos # Seg Neutrophils % Seg Neutrophils # PT INR POC ABG pH POC ABG pCO2 POC ABG pO2 VBG pH Sodium Potassium 5.3 H Chloride Carbon Dioxide BUN Glucose POC Glucose 129 H Magnesium 2.60 H AST ALT Alkaline Phosphatase NT-Pro-B Natriuret Pep Albumin Urine WBC (Auto) Crossmatch Allied health notes reviewed: nursing
[2018-11-16] MEDS: ZINC SULFATE PO SCH ×2 (09:30→13:13)
[2018-11-16] MEDS ORDERED: KIONEX PO ONE (10:00)
[2018-11-16] MEDS: DUONEB *Not for PRN Use IH SCH ×2 (11:53→20:16)
[2018-11-16] MEDS: Centrum Liq FEEDTUBE SCH (13:13)
[2018-11-16] MEDS: LOVENOX SUB-Q SCH (13:13)
[2018-11-16] MEDS: KEPPRA FEEDTUBE SCH ×2 (13:13→22:16)
[2018-11-16] MEDS: VITAMIN C FEEDTUBE SCH ×2 (13:15→22:16)
[2018-11-16] MEDS: COREG PO SCH ×2 (13:15→22:16)
[2018-11-16] MEDS: SODIUM CHLORIDE FLUSH SYRINGE 10 ML IV SCH ×2 (13:16→22:16)
[2018-11-16] MEDS: SODIUM BICARBONATE FEEDTUBE PRN (13:36)
--- NOTE | 2018-11-16 18:08 | Progress Note ---
Assessment and Plan / Paroxysmal SVTs -Cardiology was consulted during this admission -Patient was started on Coreg 6.25 and twice a day - Continue to monitor for now, we'll further follow up with cardiology if having SVTs more frequently - We'll monitor potassium, magnesium /Sepsis with MRSA bacteremia, UTI, Infected decub ulcer POA, osteomyelitis poa - Patient had being multiple admission in the past including this one for similar situation - Previously discussed multiple time with family for hospice placement but they refused - Patient was previously discharged with vancomycin for MRSA bacteremia - He readmitted this time while he was on vancomycin and blood cultures still growing MRSA - Changed antibiotic to daptomycin per ID - at discharge will need daptomycin 400 mg IV q day for 6 weeks until 12/16/2018, Order placed with case management /Sacral pressure ulcer -infected. POA WOUND CARE CONSULTed. CONTINUE ABX. Debridement done by Dr Man Amputation recommended and the daughter refused /Acute on chronic encephalopathy - Due to sepsis and underlying dementia - Continue to provide supportive care /Acute hypoxemic Respiratory failure Likely from underlying CHF exacerbation and profound sepsis cont Supplemental oxygen, nebulizer therapy, mgt per pulmonology / CHFeEF 30-35% with exacerbation, poa - Continue to monitor in's and O's, daily weight, aspirin and statin and beta chandan, patient is allergic to ACEI /Anemia of chronic disease Transfused one unit PRBC hemoglobin is stable /Seizure Continue current therapy, seizure precautions. / BPH status post TURP and obstructive uropathy Continue Chaudhary catherter placed by urology during this admission /Chronic Dementia supportive care /DVT prophylaxis Prophylactic lovenox POOR PROGNOSIS Disposition; Arranged family meeting on 11/14 with case management director patient's daughters, granddaughter and ex- along with Dr. Wynne. Family still wants to continue the antibiotic treatment, but they mention if antibiotic treatment fails this time and patient continued to spike fever or remains bacteremic with daptomycin they would possibly consider hospice. Family also considering for DO NOT RESUSCITATE and does not want any life support for the patient. Patient will be discharged back to the [facility] as soon as isolation room is available. Brief history: 67-year-old male with history of HTN, CVA, Obstructive Uropathy, Diastolic CHF, Contracture, Sacral Decubitus Ulcers, [place], DM, OA, Seizure Disorder, COPD, Dementia, BPH presents to ED for evaluation. Pt is stuporous and unable to pro vide history. Pt history taken from ED Staff, EMS, and SNF Staff. As per staff, the patient was found to have respiratory distress upon evaluation this morning. Pt found to have pulse oximetry in the 80's. EMS notified and patient subsequently transported to [facility] for further care and evaluation. Pt seen and evaluated in ED and found to have UTI, Sepsis, Encephalopathy as well as Acute Hypoxemic Respiratory Failure. Pt initiated on NIPPV in ED with improvement in symptoms. Pt admitted to [facility] and initiated on Sepsis protocol. Prior admission on 10/01/18 reviewed. Extensive discussion with family about patients poor prognosis surgery consulted for possible debridment ID following, Pulmonary status improved Continue isolation care, Chaudhary placed by Urology please do not remove Discharge pending on isolation room availability at the [facility] Hospitalist Physical The patient appeared stuporous, does not follow any command. Vital signs as documented. Head exam is unremarkable. No scleral icterus . Neck is without jugular venous distension, thyromegaly, or carotid bruits. Lungs are clear to auscultation. Cardiac exam reveals regular rate and Rhythm. First and second heart sounds normal. No murmurs, rubs or gallops. Abdominal exam reveals normal bowel sounds, no masses, no organomegaly and no aortic enlargement. Extremities contracted extremities. SPECIMEN PREPARATION ASSISTANT: Does not follow command, contracted extremities Skin; multiple decubitus ulcers, including the sacrum and the heel. Subjective Date of service: 11/16/18 Principal diagnosis: Severe Sepsis; Ac. Hypoxemic Resp failure; Anemia; Seizure; UTI; BPH Interval history: Patient seen and examined. Medical records and medication list reviewed. No acute event overnight noted by the RN. Objective - Constitutional Vitals: Vital Signs - 12hr 11/16/18 11/16/18 11/16/18 11:54 12:04 12:05 Pulse Rate Pulse Rate [ 112 H 112 H Bilateral Throughout] Respiratory 18 18 Rate [Bilateral Throughout] Blood Pressure O2 Sat by Pulse 93 Oximetry 11/16/18 13:15 Pulse Rate 117 H Pulse Rate [ Bilateral Throughout] Respiratory Rate [Bilateral Throughout] Blood Pressure 109/70 O2 Sat by Pulse Oximetry - Labs CBC & Chem 7: 11/17/18 08:02 11/17/18 08:02 Labs: Abnormal lab results 11/15/18 11/16/18 11/16/18 Range/Units 19:03 01:15 01:15 Potassium 5.3 H (3.6-5.0) mmol/L POC Glucose 141 H (70-105) Magnesium 2.60 H (1.7-2.3) mg/dL 11/16/18 11/16/18 11/16/18 Range/Units 06:45 13:20 18:02 Potassium (3.6-5.0) mmol/L POC Glucose 129 H 130 H 127 H (70-105) Magnesium (1.7-2.3) mg/dL
[2018-11-16] MEDS: NORCO 5/325 PO PRN (18:50)
[2018-11-16] MEDS: DAPTOMYCIN IV SCH (22:15)
[2018-11-16] MEDS: NACL 0.9% IV SCH (22:15)
[2018-11-17 08:34] LABS: Hematocrit 23.5 % (35.5-45.6); Hemoglobin 7.5 gm/dl (11.8-15.2)
[2018-11-17] MEDS: DUONEB *Not for PRN Use IH SCH ×2 (08:50→20:15)
[2018-11-17 08:53] LABS: BUN/Creatinine Ratio 32; Blood Urea Nitrogen 38 mg/dL (9-20); Calcium 8.4 mg/dL (8.4-10.2); Hemolysis Index 3
[2018-11-17] MEDS: ZINC SULFATE PO SCH (09:27)
[2018-11-17] MEDS: KEPPRA FEEDTUBE SCH ×2 (09:27→21:53)
[2018-11-17] MEDS: Centrum Liq FEEDTUBE SCH (09:28)
[2018-11-17] MEDS: COREG PO SCH ×2 (09:28→21:53)
[2018-11-17] MEDS: VITAMIN C FEEDTUBE SCH ×2 (09:28→21:53)
[2018-11-17] MEDS: LOVENOX SUB-Q SCH (09:28)
[2018-11-17] MEDS: SODIUM CHLORIDE FLUSH SYRINGE 10 ML IV SCH ×2 (09:29→21:52)
--- NOTE | 2018-11-17 09:39 | Progress Note ---
Assessment and Plan Severe Sepsis Acute Hypoxemic Respiratory failure Anemia of chronic disease Seizure UTI (urinary tract infection) BPH Dementia sacral pressure ulcer -infected. POA - continue supplemental oxygen as needed to keep O2 sat's > 90% - continue bronchodilators with pulmonary hygiene per RT - continue AED's for seizure control -optimize nutritional support to optimize wound healing - fall precautions - aspiration precautions - complete antibiotics per ID rec'sed - continue wound care per WCT - continue bright catheter re: Obstructive Uropathy - GI & VTE prophylaxis - continue mobility protocol, off loading for pressure ulcer prophylaxis - continue other care per attending / other consultants Subjective Date of service: 11/17/18 Principal diagnosis: Severe Sepsis; Ac. Hypoxemic Resp failure; Anemia; Seizure; UTI; BPH Interval history: Patient is seen today for: Severe Sepsis; Acute Hypoxemic Respiratory failure; Anemia of chronic disease; Seizure; UTI (urinary tract infection); BPH; Demen tia; sacral pressure ulcer -infected. POA Seen and examined at bedside; 24-hour events reviewed; nursing and respiratory care staff consulted; no adverse overnight events reported to me; resting peacefully in bed;he declines any surgical amputation or intervention; No N/V/F /C; Vitals, labs, medications, chart reviewed. Monosyllabic answers to questions Objective Vital Signs - 12hr 11/16/18 11/16/18 11/17/18 22:39 23:59 05:06 Temperature 98.1 F 97.9 F Pulse Rate 95 H 104 H Pulse Rate [ Bilateral Throughout] Respiratory 22 18 18 Rate Respiratory Rate [Bilateral Throughout] Blood Pressure 110/74 119/76 O2 Sat by Pulse 97 96 Oximetry 11/17/18 11/17/18 11/17/18 08:30 08:50 09:10 Temperature 98.6 F Pulse Rate 94 H Pulse Rate [ 94 H 98 H Bilateral Throughout] Respiratory 18 Rate Respiratory 16 16 Rate [Bilateral Throughout] Blood Pressure 149/57 O2 Sat by Pulse 93 91 Oximetry 11/17/18 09:28 Temperature Pulse Rate 94 H Pulse Rate [ Bilateral Throughout] Respiratory Rate Respiratory Rate [Bilateral Throughout] Blood Pressure 149/57 O2 Sat by Pulse Oximetry Constitutional: no acute distress, alert, other (Patient weak and contacted) Eyes: non-icteric ENT: oropharynx moist Neck: no lymphadenopathy, no JVD, other (mild stiffness / contracture) Effort: mildly labored Ascultation: Bilateral: diminished breath sounds, rhonchi Percussion: Bilateral: not dull Cardiovascular: regular rate and rhythm Gastrointestinal: normoactive bowel sounds, soft, non-tender, non-distended Integumentary: rash Extremities: no cyanosis, no edema, pulses normal, other (Patient has pressure ulcer at multiple areas, including sacral area.) Neurologic: pupils equal and round, CN II-XII normal, other (+ contractures, but awake and alert) Psychiatric: mood appropriate, affect normal CBC and BMP: 11/17/18 08:02 11/17/18 08:02 ABG, PT/INR, D-dimer: ABG POC ABG pH 7.494 (7.35-7.45) H 11/01/18 15:27 POC ABG pCO2 34.5 (35-45) L 11/01/18 15:27 POC ABG pO2 139 (80-105) H 11/01/18 15:27 POC ABG HCO3 26.5 (22-26 mml/L) 11/01/18 15:27 POC ABG Total CO2 28 (23-27mmol/L) 11/01/18 15:27 POC ABG O2 Sat 99 11/01/18 15:27 PT/INR, D-dimer PT 16.3 Sec. (12.2-14.9) H 11/01/18 14:50 INR 1.35 (0.87-1.13) H 11/01/18 14:50 Abnormal lab findings: Abnormal Labs 11/01/18 11/01/18 11/01/18 14:50 14:50 14:50 WBC 15.3 H RBC 2.76 L Hgb 7.9 L Hct 23.5 L MCH MCHC RDW 18.3 H Plt Count 567 H Lymph % (Auto) 6.5 L [place] % (Auto) 8.5 H Eos % (Auto) Lymph # 1.0 L [place] # 1.3 H Eos # Seg Neutrophils % 83.4 H Seg Neutrophils # 12.7 H PT 16.3 H INR 1.35 H POC ABG pH POC ABG pCO2 POC ABG pO2 VBG pH Sodium Potassium Chloride Carbon Dioxide BUN 49 H Glucose 132 H POC Glucose Magnesium AST 90 H ALT 77 H Alkaline Phosphatase 350 H NT-Pro-B Natriuret Pep Albumin 1.6 L Urine WBC (Auto) Crossmatch 11/01/18 11/01/18 11/01/18 14:50 14:50 15:27 WBC RBC Hgb Hct MCH MCHC RDW Plt Count Lymph % (Auto) [place] % (Auto) Eos % (Auto) Lymph # [place] # Eos # Seg Neutrophils % Seg Neutrophils # PT INR POC ABG pH 7.494 H POC ABG pCO2 34.5 L POC ABG pO2 139 H VBG pH 7.499 H Sodium Potassium Chloride Carbon Dioxide BUN Glucose POC Glucose Magnesium AST ALT Alkaline Phosphatase NT-Pro-B Natriuret Pep 6776 H Albumin Urine WBC (Auto) Crossmatch 11/01/18 11/03/18 11/03/18 15:57 03:41 03:41 WBC 12.8 H RBC 2.55 L Hgb 6.9 L Hct 22.2 L MCH 27 L MCHC 31 L RDW 17.9 H Plt Count 519 H Lymph % (Auto) [place] % (Auto) Eos % (Auto) Lymph # [place] # Eos # Seg Neutrophils % Seg Neutrophils # PT INR POC ABG pH POC ABG pCO2 POC ABG pO2 VBG pH Sodium 147 H Potassium Chloride 110.3 H Carbon Dioxide BUN 55 H Glucose POC Glucose Magnesium AST ALT Alkaline Phosphatase NT-Pro-B Natriuret Pep Albumin Urine WBC (Auto) > 182.0 H Crossmatch 11/03/18 11/04/18 11/04/18 12:51 05:12 05:12 WBC 11.5 H RBC 2.94 L Hgb 8.3 L Hct 25.3 L MCH MCHC RDW 17.3 H Plt Count 514 H Lymph % (Auto) [place] % (Auto) Eos % (Auto) Lymph # [place] # Eos # Seg Neutrophils % Seg Neutrophils # PT INR POC ABG pH POC ABG pCO2 POC ABG pO2 VBG pH Sodium 147 H Potassium Chloride 112.4 H Carbon Dioxide BUN 52 H Glucose POC Glucose Magnesium AST ALT Alkaline Phosphatase NT-Pro-B Natriuret Pep Albumin Urine WBC (Auto) Crossmatch See Detail 11/05/18 11/05/18 11/06/18 04:50 04:50 05:42 WBC RBC 3.03 L 2.80 L Hgb 8.7 L 7.9 L Hct 26.6 L 24.7 L MCH MCHC RDW 17.1 H 17.0 H Plt Count 502 H 478 H Lymph % (Auto) 10.4 L [place] % (Auto) 8.6 H Eos % (Auto) 4.7 H Lymph # 1.0 L [place] # Eos # 0.5 H Seg Neutrophils % 75.6 H Seg Neutrophils # PT INR POC ABG pH POC ABG pCO2 POC ABG pO2 VBG pH Sodium 149 H Potassium Chloride 114.4 H Carbon Dioxide 21 L BUN 50 H Glucose 108 H POC Glucose Magnesium AST ALT Alkaline Phosphatase NT-Pro-B Natriuret Pep Albumin Urine WBC (Auto) Crossmatch 11/06/18 11/11/18 11/12/18 05:42 18:54 00:22 WBC RBC Hgb Hct MCH MCHC RDW Plt Count Lymph % (Auto) [place] % (Auto) Eos % (Auto) Lymph # [place] # Eos # Seg Neutrophils % Seg Neutrophils # PT INR POC ABG pH POC ABG pCO2 POC ABG pO2 VBG pH Sodium 149 H Potassium Chloride 113.4 H Carbon Dioxide BUN 50 H Glucose 121 H POC Glucose 114 H 123 H Magnesium AST ALT Alkaline Phosphatase NT-Pro-B Natriuret Pep Albumin Urine WBC (Auto) Crossmatch 11/12/18 11/12/18 11/13/18 06:49 11:35 06:34 WBC RBC Hgb Hct MCH MCHC RDW Plt Count Lymph % (Auto) [place] % (Auto) Eos % (Auto) Lymph # [place] # Eos # Seg Neutrophils % Seg Neutrophils # PT INR POC ABG pH POC ABG pCO2 POC ABG pO2 VBG pH Sodium Potassium Chloride Carbon Dioxide BUN Glucose POC Glucose 129 H 123 H 128 H Magnesium AST ALT Alkaline Phosphatase NT-Pro-B Natriuret Pep Albumin Urine WBC (Auto) Crossmatch 11/13/18 11/13/18 11/13/18 09:26 09:26 15:13 WBC RBC 3.08 L Hgb 8.6 L Hct 27.3 L MCH MCHC 31 L RDW 18.3 H Plt Count 504 H Lymph % (Auto) 11.7 L [place] % (Auto) 7.5 H Eos % (Auto) 7.0 H Lymph # [place] # Eos # 0.7 H Seg Neutrophils % 72.9 H Seg Neutrophils # PT INR POC ABG pH POC ABG pCO2 POC ABG pO2 VBG pH Sodium 153 H Potassium 6.3 H* 5.8 H Chloride 122.3 H Carbon Dioxide 21 L BUN 38 H Glucose 112 H POC Glucose Magnesium AST ALT Alkaline Phosphatase NT-Pro-B Natriuret Pep Albumin Urine WBC (Auto) Crossmatch 11/13/18 11/13/18 11/14/18 22:10 23:45 13:17 WBC RBC Hgb Hct MCH MCHC RDW Plt Count Lymph % (Auto) [place] % (Auto) Eos % (Auto) Lymph # [place] # Eos # Seg Neutrophils % Seg Neutrophils # PT INR POC ABG pH POC ABG pCO2 POC ABG pO2 VBG pH Sodium 155 H Potassium 5.3 H Chloride 122.3 H Carbon Dioxide BUN 35 H Glucose 113 H POC Glucose 111 H 142 H Magnesium AST ALT Alkaline Phosphatase NT-Pro-B Natriuret Pep Albumin Urine WBC (Auto) Crossmatch 11/14/18 11/15/18 11/15/18 19:08 00:31 06:45 WBC RBC Hgb Hct MCH MCHC RDW Plt Count Lymph % (Auto) [place] % (Auto) Eos % (Auto) Lymph # [place] # Eos # Seg Neutrophils % Seg Neutrophils # PT INR POC ABG pH POC ABG pCO2 POC ABG pO2 VBG pH Sodium Potassium Chloride Carbon Dioxide BUN Glucose POC Glucose 116 H 125 H 131 H Magnesium AST ALT Alkaline Phosphatase NT-Pro-B Natriuret Pep Albumin Urine WBC (Auto) Crossmatch 11/15/18 11/15/18 11/15/18 07:13 07:13 19:03 WBC 13.2 H RBC 2.81 L Hgb 7.8 L Hct 24.5 L MCH MCHC RDW 18.2 H Plt Count 454 H Lymph % (Auto) 9.0 L [place] % (Auto) 7.5 H Eos % (Auto) Lymph # [place] # 1.0 H Eos # 0.5 H Seg Neutrophils % 78.8 H Seg Neutrophils # 10.4 H PT INR POC ABG pH POC ABG pCO2 POC ABG pO2 VBG pH Sodium 149 H Potassium 5.2 H Chloride 117.2 H Carbon Dioxide BUN 38 H Glucose 114 H POC Glucose 141 H Magnesium AST ALT Alkaline Phosphatase NT-Pro-B Natriuret Pep Albumin Urine WBC (Auto) Crossmatch 11/16/18 11/16/18 11/16/18 01:15 01:15 06:45 WBC RBC Hgb Hct MCH MCHC RDW Plt Count Lymph % (Auto) [place] % (Auto) Eos % (Auto) Lymph # [place] # Eos # Seg Neutrophils % Seg Neutrophils # PT INR POC ABG pH POC ABG pCO2 POC ABG pO2 VBG pH Sodium Potassium 5.3 H Chloride Carbon Dioxide BUN Glucose POC Glucose 129 H Magnesium 2.60 H AST ALT Alkaline Phosphatase NT-Pro-B Natriuret Pep Albumin Urine WBC (Auto) Crossmatch 11/16/18 11/16/18 11/17/18 13:20 18:02 00:16 WBC RBC Hgb Hct MCH MCHC RDW Plt Count Lymph % (Auto) [place] % (Auto) Eos % (Auto) Lymph # [place] # Eos # Seg Neutrophils % Seg Neutrophils # PT INR POC ABG pH POC ABG pCO2 POC ABG pO2 VBG pH Sodium Potassium Chloride Carbon Dioxide BUN Glucose POC Glucose 130 H 127 H 120 H Magnesium AST ALT Alkaline Phosphatase NT-Pro-B Natriuret Pep Albumin Urine WBC (Auto) Crossmatch 11/17/18 11/17/18 11/17/18 05:48 08:02 08:02 WBC RBC Hgb 7.5 L Hct 23.5 L MCH MCHC RDW Plt Count Lymph % (Auto) [place] % (Auto) Eos % (Auto) Lymph # [place] # Eos # Seg Neutrophils % Seg Neutrophils # PT INR POC ABG pH POC ABG pCO2 POC ABG pO2 VBG pH Sodium Potassium Chloride 110.1 H Carbon Dioxide 21 L BUN 38 H Glucose 121 H POC Glucose 130 H Magnesium AST ALT Alkaline Phosphatase NT-Pro-B Natriuret Pep Albumin Urine WBC (Auto) Crossmatch Allied health notes reviewed: nursing
[2018-11-17] MEDS: DAKIN'S HALF STRENGTH TP SCH ×2 (10:05→21:54)
--- NOTE | 2018-11-17 12:56 | Progress Note ---
Assessment and Plan / Paroxysmal SVTs -Cardiology was consulted during this admission -Patient was started on Coreg 6.25 and twice a day - Continue to monitor for now, we'll further follow up with cardiology if having SVTs more frequently - We'll monitor potassium, magnesium /Sepsis with MRSA bacteremia, UTI, Infected decub ulcer POA, osteomyelitis poa - Patient had being multiple admission in the past including this one for similar situation - Previously discussed multiple time with family for hospice placement but they refused - Patient was previously discharged with vancomycin for MRSA bacteremia - He readmitted this time while he was on vancomycin and blood cultures still growing MRSA - Changed antibiotic to daptomycin per ID - at discharge will need daptomycin 400 mg IV q day for 6 weeks until 12/16/2018, Order placed with case management /Sacral pressure ulcer -infected. POA WOUND CARE CONSULTed. CONTINUE ABX. Debridement done by Dr Man Amputation recommended and the daughter refused /Acute on chronic encephalopathy - Due to sepsis and underlying dementia - Continue to provide supportive care /Acute hypoxemic Respiratory failure Likely from underlying CHF exacerbation and profound sepsis cont Supplemental oxygen, nebulizer therapy, mgt per pulmonology / CHFeEF 30-35% with exacerbation, poa - Continue to monitor in's and O's, daily weight, aspirin and statin and beta chandan, patient is allergic to ACEI /Anemia of chronic disease Transfused one unit PRBC hemoglobin is stable /Seizure Continue current therapy, seizure precautions. / BPH status post TURP and obstructive uropathy Continue Chaudhary catherter placed by urology during this admission /Chronic Dementia supportive care /DVT prophylaxis Prophylactic lovenox POOR PROGNOSIS Disposition; Arranged family meeting on 11/14 with protective services case worker patient's daughters, granddaughter and ex- along with Dr. Wynne. Family still wants to continue the antibiotic treatment, but they mention if antibiotic treatment fails this time and patient continued to spike fever or remains bacteremic with daptomycin they would possibly consider hospice. Family also considering for DO NOT RESUSCITATE and does not want any life support for the patient. Patient will be discharged back [facility] the [facility] as soon as isolation room is available. Brief history: 67-year-old male with history of HTN, CVA, Obstructive Uropathy, Diastolic CHF, Contracture, Sacral Decubitus Ulcers, [place], DM, OA, Seizure Disorder, COPD, Dementia, BPH presents to ED for evaluation. Pt is stuporous and unable to pro vide history. Pt history taken from ED Staff, EMS, and SNF Staff. As per staff, the patient was found to have respiratory distress upon evaluation this morning. Pt found to have pulse oximetry in the 80's. EMS notified and patient subsequently transported to [facility] for further care and evaluation. Pt seen and evaluated in ED and found to have UTI, Sepsis, Encephalopathy as well as Acute Hypoxemic Respiratory Failure. Pt initiated on NIPPV in ED with improvement in symptoms. Pt admitted to [facility] and initiated on Sepsis protocol. Prior admission on 10/01/18 reviewed. Extensive discussion with family about patients poor prognosis surgery consulted for possible debridment ID following, Pulmonary status improved Continue isolation care, Chaudhary placed by Urology please do not remove Discharge pending on isolation room availability at the [facility] Hospitalist Physical The patient appeared stuporous, does not follow any command. Vital signs as documented. Head exam is unremarkable. No scleral icterus . Neck is without jugular venous distension, thyromegaly, or carotid bruits. Lungs are clear to auscultation. Cardiac exam reveals regular rate and Rhythm. First and second heart sounds normal. No murmurs, rubs or gallops. Abdominal exam reveals normal bowel sounds, no masses, no organomegaly and no aortic enlargement. Extremities contracted extremities. 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 Subjective Date of service: 11/17/18 Principal diagnosis: Severe Sepsis; Ac. Hypoxemic Resp failure; Anemia; Seizure; UTI; BPH Interval history: Patient seen and examined. Medical records and medication list reviewed. No acute event overnight noted by the RN. Objective - Constitutional Vitals: Vital Signs - 12hr 11/17/18 11/17/18 11/17/18 05:06 08:30 08:50 Temperature 97.9 F 98.6 F Pulse Rate 104 H 94 H Pulse Rate [ 94 H Bilateral Throughout] Respiratory 18 18 Rate Respiratory 16 Rate [Bilateral Throughout] Blood Pressure 119/76 149/57 O2 Sat by Pulse 96 93 91 Oximetry 11/17/18 11/17/18 11/17/18 09:10 09:28 10:00 Temperature Pulse Rate 94 H 100 H Pulse Rate [ 98 H Bilateral Throughout] Respiratory Rate Respiratory 16 Rate [Bilateral Throughout] Blood Pressure 149/57 O2 Sat by Pulse Oximetry 11/17/18 12:47 Temperature 98.6 F Pulse Rate 86 Pulse Rate [ Bilateral Throughout] Respiratory 18 Rate Respiratory Rate [Bilateral Throughout] Blood Pressure 126/56 O2 Sat by Pulse 92 Oximetry - Labs CBC & Chem 7: 11/17/18 08:02 11/17/18 08:02 Labs: Abnormal lab results 11/16/18 11/16/18 11/17/18 Range/Units 13:20 18:02 00:16 Hgb (11.8-15.2) gm/dl Hct (35.5-45.6) % Chloride (98-107) mmol/L Carbon Dioxide (22-30) mmol/L BUN (9-20) mg/dL Glucose (75-100) mg/dL POC Glucose 130 H 127 H 120 H (70-105) 11/17/18 11/17/18 11/17/18 Range/Units 05:48 08:02 08:02 Hgb 7.5 L (11.8-15.2) gm/dl Hct 23.5 L (35.5-45.6) % Chloride 110.1 H (98-107) mmol/L Carbon Dioxide 21 L (22-30) mmol/L BUN 38 H (9-20) mg/dL Glucose 121 H (75-100) mg/dL POC Glucose 130 H (70-105) 11/17/18 Range/Units 12:17 Hgb (11.8-15.2) gm/dl Hct (35.5-45.6) % Chloride (98-107) mmol/L Carbon Dioxide (22-30) mmol/L BUN (9-20) mg/dL Glucose (75-100) mg/dL POC Glucose 140 H (70-105)
[2018-11-17] MEDS: DAPTOMYCIN IV SCH (23:30)
[2018-11-17] MEDS: NACL 0.9% IV SCH (23:30)
[2018-11-18] MEDS: DUONEB *Not for PRN Use IH SCH ×2 (08:06→19:50)
--- NOTE | 2018-11-18 09:23 | Progress Note ---
Assessment and Plan Severe Sepsis Acute Hypoxemic Respiratory failure Anemia of chronic disease Seizure UTI (urinary tract infection) BPH Dementia sacral pressure ulcer -infected. POA - continue Coreg re: SVT - continue supplemental oxygen as needed to keep O2 sat's > 90% - continue bronchodilators with pulmonary hygiene per RT - complete antibiotics per ID rec's (On Daptomycin) - continue AED's for seizure control (Keppra) - continue fall precautions & neurochecks - continue aspiration precautions - enteral nutrition as tolerated - continue wound care per WCT - continue bright catheter re: Obstructive Uropathy - GI & VTE prophylaxis - continue mobility protocol for pressure ulcer prophylaxis - continue other care per attending / other consultants ...... remains Full CODE ... re-evaluate in am & prn Subjective Date of service: 11/18/18 Principal diagnosis: Severe Sepsis; Ac. Hypoxemic Resp failure; Anemia; Seizure; UTI; BPH Interval history: Patient is seen today for: Severe Sepsis; Acute Hypoxemic Respiratory failure; Anemia of chronic disease; Seizure; UTI (urinary tract infection); BPH; Dementia; sacral pressure ulcer -infected. POA Seen and examined at bedside; 24-hour events reviewed; nursing and respiratory care staff consulted; no adverse overnight events reported to me; resting peacefully in bed; he has had paroxysmal SVT's but nothing sustained; he remains on IV AB's; denies acute chest pains or palpitations; No N/V/F/C Objective Vital Signs - 12hr 11/17/18 11/17/18 11/18/18 22:00 23:19 04:19 Temperature 98.1 F 98.1 F Pulse Rate 75 83 Pulse Rate [ Bilateral Throughout] Respiratory 18 18 Rate Respiratory Rate [Bilateral Throughout] Blood Pressure 112/63 111/71 O2 Sat by Pulse 94 92 97 Oximetry 11/18/18 11/18/18 11/18/18 08:00 08:10 08:28 Temperature 98.6 F Pulse Rate Pulse Rate [ 80 85 Bilateral Throughout] Respiratory 18 Rate Respiratory 19 19 Rate [Bilateral Throughout] Blood Pressure 148/93 O2 Sat by Pulse Oximetry 11/18/18 09:17 Temperature Pulse Rate Pulse Rate [ Bilateral Throughout] Respiratory Rate Respiratory Rate [Bilateral Throughout] Blood Pressure O2 Sat by Pulse 97 Oximetry Constitutional: no acute distress, alert, other (elderly looking AAM, normocephalic with mildly increased resp effort at rest) Eyes: non-icteric ENT: oropharynx moist Neck: no lymphadenopathy, no JVD, other (mild stiffness / contracture) Effort: mildly labored Ascultation: Bilateral: diminished breath sounds, rhonchi Percussion: Bilateral: not dull Cardiovascular: regular rate and rhythm Gastrointestinal: normoactive bowel sounds, soft, non-tender, non-distended Integumentary: rash Extremities: no cyanosis, no edema, pulses normal, other (Patient has pressure ulcer at multiple areas, including sacral area.) Neurologic: non-focal exam, pupils equal and round, CN II-XII normal, other (+ contractures) Psychiatric: mood appropriate, affect normal CBC and BMP: 11/17/18 08:02 11/17/18 08:02 ABG, PT/INR, D-dimer: ABG POC ABG pH 7.494 (7.35-7.45) H 11/01/18 15:27 POC ABG pCO2 34.5 (35-45) L 11/01/18 15:27 POC ABG pO2 139 (80-105) H 11/01/18 15:27 POC ABG HCO3 26.5 (22-26 mml/L) 11/01/18 15:27 POC ABG Total CO2 28 (23-27mmol/L) 11/01/18 15:27 POC ABG O2 Sat 99 11/01/18 15:27 PT/INR, D-dimer PT 16.3 Sec. (12.2-14.9) H 11/01/18 14:50 INR 1.35 (0.87-1.13) H 11/01/18 14:50 Abnormal lab findings: Abnormal Labs 11/01/18 11/01/18 11/01/18 14:50 14:50 14:50 WBC 15.3 H RBC 2.76 L Hgb 7.9 L Hct 23.5 L MCH MCHC RDW 18.3 H Plt Count 567 H Lymph % (Auto) 6.5 L [place] % (Auto) 8.5 H Eos % (Auto) Lymph # 1.0 L [place] # 1.3 H Eos # Seg Neutrophils % 83.4 H Seg Neutrophils # 12.7 H PT 16.3 H INR 1.35 H POC ABG pH POC ABG pCO2 POC ABG pO2 VBG pH Sodium Potassium Chloride Carbon Dioxide BUN 49 H Glucose 132 H POC Glucose Magnesium AST 90 H ALT 77 H Alkaline Phosphatase 350 H NT-Pro-B Natriuret Pep Albumin 1.6 L Urine WBC (Auto) Crossmatch 11/01/18 11/01/18 11/01/18 14:50 14:50 15:27 WBC RBC Hgb Hct MCH MCHC RDW Plt Count Lymph % (Auto) [place] % (Auto) Eos % (Auto) Lymph # [place] # Eos # Seg Neutrophils % Seg Neutrophils # PT INR POC ABG pH 7.494 H POC ABG pCO2 34.5 L POC ABG pO2 139 H VBG pH 7.499 H Sodium Potassium Chloride Carbon Dioxide BUN Glucose POC Glucose Magnesium AST ALT Alkaline Phosphatase NT-Pro-B Natriuret Pep 6776 H Albumin Urine WBC (Auto) Crossmatch 11/01/18 11/03/18 11/03/18 15:57 03:41 03:41 WBC 12.8 H RBC 2.55 L Hgb 6.9 L Hct 22.2 L MCH 27 L MCHC 31 L RDW 17.9 H Plt Count 519 H Lymph % (Auto) [place] % (Auto) Eos % (Auto) Lymph # [place] # Eos # Seg Neutrophils % Seg Neutrophils # PT INR POC ABG pH POC ABG pCO2 POC ABG pO2 VBG pH Sodium 147 H Potassium Chloride 110.3 H Carbon Dioxide BUN 55 H Glucose POC Glucose Magnesium AST ALT Alkaline Phosphatase NT-Pro-B Natriuret Pep Albumin Urine WBC (Auto) > 182.0 H Crossmatch 11/03/18 11/04/18 11/04/18 12:51 05:12 05:12 WBC 11.5 H RBC 2.94 L Hgb 8.3 L Hct 25.3 L MCH MCHC RDW 17.3 H Plt Count 514 H Lymph % (Auto) [place] % (Auto) Eos % (Auto) Lymph # [place] # Eos # Seg Neutrophils % Seg Neutrophils # PT INR POC ABG pH POC ABG pCO2 POC ABG pO2 VBG pH Sodium 147 H Potassium Chloride 112.4 H Carbon Dioxide BUN 52 H Glucose POC Glucose Magnesium AST ALT Alkaline Phosphatase NT-Pro-B Natriuret Pep Albumin Urine WBC (Auto) Crossmatch See Detail 11/05/18 11/05/18 11/06/18 04:50 04:50 05:42 WBC RBC 3.03 L 2.80 L Hgb 8.7 L 7.9 L Hct 26.6 L 24.7 L MCH MCHC RDW 17.1 H 17.0 H Plt Count 502 H 478 H Lymph % (Auto) 10.4 L [place] % (Auto) 8.6 H Eos % (Auto) 4.7 H Lymph # 1.0 L [place] # Eos # 0.5 H Seg Neutrophils % 75.6 H Seg Neutrophils # PT INR POC ABG pH POC ABG pCO2 POC ABG pO2 VBG pH Sodium 149 H Potassium Chloride 114.4 H Carbon Dioxide 21 L BUN 50 H Glucose 108 H POC Glucose Magnesium AST ALT Alkaline Phosphatase NT-Pro-B Natriuret Pep Albumin Urine WBC (Auto) Crossmatch 11/06/18 11/11/18 11/12/18 05:42 18:54 00:22 WBC RBC Hgb Hct MCH MCHC RDW Plt Count Lymph % (Auto) [place] % (Auto) Eos % (Auto) Lymph # [place] # Eos # Seg Neutrophils % Seg Neutrophils # PT INR POC ABG pH POC ABG pCO2 POC ABG pO2 VBG pH Sodium 149 H Potassium Chloride 113.4 H Carbon Dioxide BUN 50 H Glucose 121 H POC Glucose 114 H 123 H Magnesium AST ALT Alkaline Phosphatase NT-Pro-B Natriuret Pep Albumin Urine WBC (Auto) Crossmatch 11/12/18 11/12/18 11/13/18 06:49 11:35 06:34 WBC RBC Hgb Hct MCH MCHC RDW Plt Count Lymph % (Auto) [place] % (Auto) Eos % (Auto) Lymph # [place] # Eos # Seg Neutrophils % Seg Neutrophils # PT INR POC ABG pH POC ABG pCO2 POC ABG pO2 VBG pH Sodium Potassium Chloride Carbon Dioxide BUN Glucose POC Glucose 129 H 123 H 128 H Magnesium AST ALT Alkaline Phosphatase NT-Pro-B Natriuret Pep Albumin Urine WBC (Auto) Crossmatch 11/13/18 11/13/18 11/13/18 09:26 09:26 15:13 WBC RBC 3.08 L Hgb 8.6 L Hct 27.3 L MCH MCHC 31 L RDW 18.3 H Plt Count 504 H Lymph % (Auto) 11.7 L [place] % (Auto) 7.5 H Eos % (Auto) 7.0 H Lymph # [place] # Eos # 0.7 H Seg Neutrophils % 72.9 H Seg Neutrophils # PT INR POC ABG pH POC ABG pCO2 POC ABG pO2 VBG pH Sodium 153 H Potassium 6.3 H* 5.8 H Chloride 122.3 H Carbon Dioxide 21 L BUN 38 H Glucose 112 H POC Glucose Magnesium AST ALT Alkaline Phosphatase NT-Pro-B Natriuret Pep Albumin Urine WBC (Auto) Crossmatch 11/13/18 11/13/18 11/14/18 22:10 23:45 13:17 WBC RBC Hgb Hct MCH MCHC RDW Plt Count Lymph % (Auto) [place] % (Auto) Eos % (Auto) Lymph # [place] # Eos # Seg Neutrophils % Seg Neutrophils # PT INR POC ABG pH POC ABG pCO2 POC ABG pO2 VBG pH Sodium 155 H Potassium 5.3 H Chloride 122.3 H Carbon Dioxide BUN 35 H Glucose 113 H POC Glucose 111 H 142 H Magnesium AST ALT Alkaline Phosphatase NT-Pro-B Natriuret Pep Albumin Urine WBC (Auto) Crossmatch 11/14/18 11/15/18 11/15/18 19:08 00:31 06:45 WBC RBC Hgb Hct MCH MCHC RDW Plt Count Lymph % (Auto) [place] % (Auto) Eos % (Auto) Lymph # [place] # Eos # Seg Neutrophils % Seg Neutrophils # PT INR POC ABG pH POC ABG pCO2 POC ABG pO2 VBG pH Sodium Potassium Chloride Carbon Dioxide BUN Glucose POC Glucose 116 H 125 H 131 H Magnesium AST ALT Alkaline Phosphatase NT-Pro-B Natriuret Pep Albumin Urine WBC (Auto) Crossmatch 11/15/18 11/15/18 11/15/18 07:13 07:13 19:03 WBC 13.2 H RBC 2.81 L Hgb 7.8 L Hct 24.5 L MCH MCHC RDW 18.2 H Plt Count 454 H Lymph % (Auto) 9.0 L [place] % (Auto) 7.5 H Eos % (Auto) Lymph # [place] # 1.0 H Eos # 0.5 H Seg Neutrophils % 78.8 H Seg Neutrophils # 10.4 H PT INR POC ABG pH POC ABG pCO2 POC ABG pO2 VBG pH Sodium 149 H Potassium 5.2 H Chloride 117.2 H Carbon Dioxide BUN 38 H Glucose 114 H POC Glucose 141 H Magnesium AST ALT Alkaline Phosphatase NT-Pro-B Natriuret Pep Albumin Urine WBC (Auto) Crossmatch 11/16/18 11/16/18 11/16/18 01:15 01:15 06:45 WBC RBC Hgb Hct MCH MCHC RDW Plt Count Lymph % (Auto) [place] % (Auto) Eos % (Auto) Lymph # [place] # Eos # Seg Neutrophils % Seg Neutrophils # PT INR POC ABG pH POC ABG pCO2 POC ABG pO2 VBG pH Sodium Potassium 5.3 H Chloride Carbon Dioxide BUN Glucose POC Glucose 129 H Magnesium 2.60 H AST ALT Alkaline Phosphatase NT-Pro-B Natriuret Pep Albumin Urine WBC (Auto) Crossmatch 11/16/18 11/16/18 11/17/18 13:20 18:02 00:16 WBC RBC Hgb Hct MCH MCHC RDW Plt Count Lymph % (Auto) [place] % (Auto) Eos % (Auto) Lymph # [place] # Eos # Seg Neutrophils % Seg Neutrophils # PT INR POC ABG pH POC ABG pCO2 POC ABG pO2 VBG pH Sodium Potassium Chloride Carbon Dioxide BUN Glucose POC Glucose 130 H 127 H 120 H Magnesium AST ALT Alkaline Phosphatase NT-Pro-B Natriuret Pep Albumin Urine WBC (Auto) Crossmatch 11/17/18 11/17/18 11/17/18 05:48 08:02 08:02 WBC RBC Hgb 7.5 L Hct 23.5 L MCH MCHC RDW Plt Count Lymph % (Auto) [place] % (Auto) Eos % (Auto) Lymph # [place] # Eos # Seg Neutrophils % Seg Neutrophils # PT INR POC ABG pH POC ABG pCO2 POC ABG pO2 VBG pH Sodium Potassium Chloride 110.1 H Carbon Dioxide 21 L BUN 38 H Glucose 121 H POC Glucose 130 H Magnesium AST ALT Alkaline Phosphatase NT-Pro-B Natriuret Pep Albumin Urine WBC (Auto) Crossmatch 11/17/18 11/17/18 11/18/18 12:17 16:48 06:00 WBC RBC Hgb Hct MCH MCHC RDW Plt Count Lymph % (Auto) [place] % (Auto) Eos % (Auto) Lymph # [place] # Eos # Seg Neutrophils % Seg Neutrophils # PT INR POC ABG pH POC ABG pCO2 POC ABG pO2 VBG pH Sodium Potassium Chloride Carbon Dioxide BUN Glucose POC Glucose 140 H 120 H 137 H Magnesium AST ALT Alkaline Phosphatase NT-Pro-B Natriuret Pep Albumin Urine WBC (Auto) Crossmatch Chest x-ray: pending Allied health notes reviewed: nursing
[2018-11-18] MEDS: KEPPRA FEEDTUBE SCH ×2 (11:04→22:09)
[2018-11-18] MEDS: ZINC SULFATE PO SCH (11:04)
[2018-11-18] MEDS: LOVENOX SUB-Q SCH (11:05)
[2018-11-18] MEDS: COREG PO SCH ×2 (11:05→22:10)
[2018-11-18] MEDS: Centrum Liq FEEDTUBE SCH (11:05)
[2018-11-18] MEDS: VITAMIN C FEEDTUBE SCH ×2 (11:06→22:09)
--- NOTE | 2018-11-18 12:39 | Progress Note ---
Assessment and Plan Cultures: Blood culture 10/01/2018 MRSA 2 of 4. Blood culture 10/03/2018 MRSA Blood culture 10/08/2018 no growth Blood culture 10/11/2018 no growth Blood culture 10/21/2018 no growth Blood culture 11/01/2018 Staph haemolyticus 2 of 4 bottles, resistent to methicillin and MRSA 1 of 4 bottles Blood culture 11/04/2018 no growth Assessment: 67 y/o male with history of HTN, CVA, Obstructive Uropathy, Contracture, Multiple Decubitus Ulcers, AL, DM, OA, Seizure Disorder, COPD, Dementia, Debility, BPH, well known to ID due to multiple admissions secondary to ducubitus ulcers infections and recurrent bacteremia, last time admitted on 10/02/2018 found with MRSA bacteremia jessica from decubitus ulcers mainly active large left trochanteric with bone exposure and sacral with bone exposure. Patient's infection was deemed incurable and hospice was recommended. Patient was discharged back to [facility] on IV vancomycin 1 gm every 48 hours for total 6 weeks ending 11/12/2018 via neck tunneled cath. Patient was readmitted on due to AMS, worsening SOB. Patient is lethargic and unable to provide history. At the [facility] he was found to have respiratory distress upon evaluation the morning of admission,pulse oximetry in the 80's: 1) Severe Sepsis: Improved. Etiology most likely Recurrent Staph bacteremia +/- CAUTI. 2) Staph haemolyticus and MRSA bacteremia with recent MRSA bacteremia: Blood culture 11/01/2018 Staph haemolyticus 2 of 4 bottles and MRSA 1 of 4. Source likely multiple decubitus ulcers or Neck IV central line. Patient is failing vancomycin. He has a tunneled neck cath. Recent TTE negative for vegetations. On daptomycin. 3) Recent septic shock due to polymicrobial bacteremia ESBL and carbapenem resistant E coli, MDR Proteus, Strep and E faecalis on 07/29/2018 probably from multiple infected decubitus ulcers and less likely UTI. Repeat blood cultures 07/31/2018 showed same MDR E coli 1 of 4 bottles then 08/06/2018 blood cultures showed no growth. Patient was treated with Vabomere for 14 days. 4) Multiple infected decubitus ulcers: His prognosis has been poor and hospice has been recommended several times in the past but family has declined. declined. His wounds are not curable considering his contractures, bed bound status and poor nutritional status. There was also suspicion of septic arthritis of left hip from decubitus ulcer. S/p debridement of multiple pressure ulcerations on 11/07/2018- stage 4 left hip pressure ulceration was surgically excisionally debrided of necrotic bone, stage 3 sacral, right ankle and left heel pressure ulcers were then surgically, excisionally debrided of necrotic SQ fat, stage 4 right heel, left lateral heel and right lateral leg ulcerations were surgically, excisionally debrided of necrotic SQ tissue, muscle and fascia.. s/p debridement 11/13/18 of multiple stage 3/4 pressure u lcers sacrum, right lateral leg, right lateral ankle, left heel, left hip and right heel Dr Man recommended bilateral AKA, patient and daughter refused. Dr Man recommended Orthopedic consultation for possible left hip disarticulation as his left hip joint is crumbling and has profuse purulent drainage. 5) Recurrent UTI: patient's bright was removed home 2 weeks ago, a new bright placed here 6) Acute encephalopathy: multifactorial. 7) Acute resp failure: was on BIPAP now NC O2. EF 30-35% pericaldial and pleural effusion. Recommendations: - continue Daptomycin IV for now D11 - always contact isolation - at discharge will do daptomycin 400 mg IV q day for 6 weeks until 12/16/2018, Order placed with case management -patient has difficult IV access, will keep neck central line [facility] [employer] [facility] M: [phone] O:[phone] Subjective Date of service: 11/18/18 Principal diagnosis: Severe Sepsis; Ac. Hypoxemic Resp failure; Anemia; Seizure; UTI; BPH Interval history: Patient seen and examined. Awake. Alert. Continues to verbalize bilateral hip and buttock pain. No fevers. Objective - Exam Narrative Exam: General appearance: Awake. Alert. Acute pain. Eyes: anicteric sclerae, moist conjunctivae; no lid-lag; PERRLA HENT: Atraumatic; oropharynx limited Neck: Trachea midline; supple, no thyromegaly or lymphadenopathy Lungs: CTA CV: RRR no murmur Abdomen: Soft, non-tender Extremities: marked legs contractions, multiple decubitus ulcers covered with dressings Skin: multiple skin tears Psych: Calm Neuro: alert - Constitutional Vitals: Vital Signs Temp Pulse Resp BP Pulse Ox 98.6 F 85 18 148/93 97 11/18/18 08:28 11/18/18 08:10 11/18/18 08:28 11/18/18 08:28 11/18/18 09:17 Temperature -Last 24 Hours Temperature 98.6 F Temperature 98.1 F Temperature 98.1 F Temperature 97.8 F Temperature 98.0 F Temperature 98.6 F - Labs CBC & Chem 7: 11/17/18 08:02 11/17/18 08:02 Labs: Abnormal lab results 11/17/18 11/17/18 11/18/18 Range/Units 12:17 16:48 06:00 POC Glucose 140 H 120 H 137 H (70-105)
--- NOTE | 2018-11-18 13:35 | Progress Note ---
Assessment and Plan / Paroxysmal SVTs -Cardiology was consulted during this admission -Patient was started on Coreg 6.25 and twice a day - Continue to monitor for now, we'll further follow up with cardiology if having SVTs more frequently - We'll monitor potassium, magnesium /Sepsis with MRSA bacteremia, UTI, Infected decub ulcer POA, osteomyelitis poa - Patient had being multiple admission in the past including this one for similar situation - Previously discussed multiple time with family for hospice placement but they refused - Patient was previously discharged with vancomycin for MRSA bacteremia - He readmitted this time while he was on vancomycin and blood cultures still growing MRSA - Changed antibiotic to daptomycin per ID - at discharge will need daptomycin 400 mg IV q day for 6 weeks until 12/16/2018, Order placed with case management /Sacral pressure ulcer -infected. POA WOUND CARE CONSULTed. CONTINUE ABX. Debridement done by Dr Man Amputation recommended and the daughter refused /Acute on chronic encephalopathy - Due to sepsis and underlying dementia - Continue to provide supportive care /Acute hypoxemic Respiratory failure Likely from underlying CHF exacerbation and profound sepsis cont Supplemental oxygen, nebulizer therapy, mgt per pulmonology / CHFeEF 30-35% with exacerbation, poa - Continue to monitor in's and O's, daily weight, aspirin and statin and beta chandan, patient is allergic to ACEI /Anemia of chronic disease Transfused one unit PRBC hemoglobin is stable /Seizure Continue current therapy, seizure precautions. / BPH status post TURP and obstructive uropathy Continue Chaudhary catherter placed by urology during this admission /Chronic Dementia supportive care /DVT prophylaxis Prophylactic lovenox POOR PROGNOSIS Disposition; Arranged family meeting on 11/14 with high risk case manager patient's daughters, granddaughter and ex- along with Dr. Wynne. Family still wants to continue the antibiotic treatment, but they mention if antibiotic treatment fails this time and patient continued to spike fever or remains bacteremic with daptomycin then they would possibly consider hospice. Family also considering for DO NOT RESUSCITATE and does not want any life support for the patient, but they did not signed the DNR form yet. Patient will be discharged back to the [facility] as soon as isolation room is available. Brief history: 67-year-old male with history of HTN, CVA, Obstructive Uropathy, Diastolic CHF, Contracture, Sacral Decubitus Ulcers, SC, DM, OA, Seizure Disorder, COPD, Dementia, BPH presents to ED for evaluation. Pt is stuporous and unable to provide history. Pt history taken from ED Staff, EMS, and SNF Staff. As per staff, the patient was found to have respiratory distress upon evaluation this morning. Pt found to have pulse oximetry in the 80's. EMS notified and patient subsequently transported to [facility] for further care and evaluation. Pt seen and evaluated in ED and found to have UTI, Sepsis, Encephalopathy as well as Acute Hypoxemic Respiratory Failure. Pt initiated on NIPPV in ED with improvement in symptoms. Pt admitted to [facility] and initiated on Sepsis protocol. Prior admission on 10/01/18 reviewed. Extensive discussion with family about patients poor prognosis surgery consulted for possible debridment ID following, Pulmonary status improved Continue isolation care, Chaudhary placed by Urology please do not remove Discharge pending on isolation room availability at the [facility] Hospitalist Physical The patient appeared in no distress. Vital signs as documented. Head exam is unremarkable. No scleral icterus . Neck is without jugular venous distension, thyromegaly, or carotid bruits. Lungs are clear to auscultation. Cardiac exam reveals regular rate and Rhythm. First and second heart sounds normal. No murmurs, rubs or gallops. Abdominal exam reveals normal bowel sounds, no masses, no organomegaly and no aortic enlargement. Extremities contracted extremities. 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 Subjective Date of service: 11/18/18 Principal diagnosis: Severe Sepsis; Ac. Hypoxemic Resp failure; Anemia; Seizure; UTI; BPH Interval history: Patient seen and examined. Medical records and medication list reviewed. No acute event overnight noted by the RN. Objective - Constitutional Vitals: Vital Signs - 12hr 11/18/18 11/18/18 11/18/18 04:19 08:00 08:10 Temperature 98.1 F Pulse Rate 83 Pulse Rate [ 80 85 Bilateral Throughout] Respiratory 18 Rate Respiratory 19 19 Rate [Bilateral Throughout] Blood Pressure 111/71 O2 Sat by Pulse 97 Oximetry 11/18/18 11/18/18 08:28 09:17 Temperature 98.6 F Pulse Rate Pulse Rate [ Bilateral Throughout] Respiratory 18 Rate Respiratory Rate [Bilateral Throughout] Blood Pressure 148/93 O2 Sat by Pulse 97 Oximetry - Labs CBC & Chem 7: 11/17/18 08:02 11/17/18 08:02 Labs: Abnormal lab results 11/17/18 11/18/18 Range/Units 16:48 06:00 POC Glucose 120 H 137 H (70-105)
[2018-11-18] MEDS: DAKIN'S HALF STRENGTH TP SCH ×2 (13:51→22:11)
[2018-11-18] MEDS: MORPHINE IV PRN (13:51)
[2018-11-18] MEDS: SODIUM CHLORIDE FLUSH SYRINGE 10 ML IV SCH (22:10)
[2018-11-18] MEDS: DAPTOMYCIN IV SCH (22:42)
[2018-11-18] MEDS: NACL 0.9% IV SCH (22:42)
[2018-11-19] MEDS: KEPPRA FEEDTUBE SCH ×2 (10:23→21:14)
[2018-11-19] MEDS: COREG PO SCH ×2 (10:23→21:14)
[2018-11-19] MEDS: Centrum Liq FEEDTUBE SCH (10:23)
[2018-11-19] MEDS: VITAMIN C FEEDTUBE SCH ×2 (10:23→21:14)
[2018-11-19] MEDS: LOVENOX SUB-Q SCH (10:23)
[2018-11-19] MEDS: ZINC SULFATE PO SCH (10:23)
[2018-11-19] MEDS: SODIUM CHLORIDE FLUSH SYRINGE 10 ML IV SCH ×3 (10:24→21:15)
[2018-11-19] MEDS: DAKIN'S HALF STRENGTH TP SCH ×2 (10:25→21:13)
--- NOTE | 2018-11-19 10:35 | Progress Note ---
Assessment and Plan Cultures: Blood culture 10/01/2018 MRSA 2 of 4. Blood culture 10/03/2018 MRSA Blood culture 10/08/2018 no growth Blood culture 10/11/2018 no growth Blood culture 10/21/2018 no growth Blood culture 11/01/2018 Staph haemolyticus 2 of 4 bottles, resistent to methicillin and MRSA 1 of 4 bottles Blood culture 11/04/2018 no growth Assessment: 67 y/o male with history of HTN, CVA, Obstructive Uropathy, Contracture, Multiple Decubitus Ulcers, CO, DM, OA, Seizure Disorder, COPD, Dementia, Debility, BPH, well known to ID due to multiple admissions secondary to ducubitus ulcers infections and recurrent bacteremia, last time admitted on 10/02/2018 found with MRSA bacteremia jessica from decubitus ulcers mainly active large left trochanteric with bone exposure and sacral with bone exposure. Patient's infection was deemed incurable and hospice was recommended. Patient was discharged back to [place] on IV vancomycin 1 gm every 48 hours for total 6 weeks ending 11/12/2018 via neck tunneled cath. Patient was readmitted on due to AMS, worsening SOB. Patient is lethargic and unable to provide history. At the [facility] he was found to have respiratory distress upon evaluation the morning of admission,pulse oximetry in the 80's: 1) Severe Sepsis: Improved. Etiology most likely Recurrent Staph bacteremia +/- CAUTI. 2) Staph haemolyticus and MRSA bacteremia with recent MRSA bacteremia: Blood culture 11/01/2018 Staph haemolyticus 2 of 4 bottles and MRSA 1 of 4. Source likely multiple decubitus ulcers or Neck IV central line. Patient is failing vancomycin. He has a tunneled neck cath. Recent TTE negative for vegetations. On daptomycin. 3) Recent septic shock due to polymicrobial bacteremia ESBL and carbapenem resistant E coli, MDR Proteus, Strep and E faecalis on 07/29/2018 probably from multiple infected decubitus ulcers and less likely UTI. Repeat blood cultures 07/31/2018 showed same MDR E coli 1 of 4 bottles then 08/06/2018 blood cultures showed no growth. Patient was treated with Vabomere for 14 days. 4) Multiple infected decubitus ulcers: His prognosis has been poor and hospice has been recommended several times in the past but family has declined. declined. His wounds are not curable considering his contractures, bed bound status and poor nutritional status. There was also suspicion of septic arthritis of left hip from decubitus ulcer. S/p debridement of multiple pressure ulcerations on 11/07/2018- stage 4 left hip pressure ulceration was surgically excisionally debrided of necrotic bone, stage 3 sacral, right ankle and left heel pressure ulcers were then surgically, excisionally debrided of necrotic SQ fat, stage 4 right heel, left lateral heel and right lateral leg ulcerations were surgically, excisionally debrided of necrotic SQ tissue, muscle and fascia.. s/p debridement 11/13/18 of multiple stage 3/4 pressure u lcers sacrum, right lateral leg, right lateral ankle, left heel, left hip and right heel Dr Man recommended bilateral AKA, patient and daughter refused. Dr Man recommended Orthopedic consultation for possible left hip disarticulation as his left hip joint is crumbling and has profuse purulent drainage. 5) Recurrent UTI: patient's bright was removed home 2 weeks ago, a new bright placed here 6) Acute encephalopathy: multifactorial. 7) Acute resp failure: was on BIPAP now NC O2. EF 30-35% pericaldial and pleural effusion. Recommendations: - continue Daptomycin IV for now D12 - always contact isolation - at discharge will do daptomycin 400 mg IV q day for 6 weeks until 12/16/2018, Order placed with case management -patient has difficult IV access, will keep neck central line Extremely poor prognosis [facility] M: [phone] O:[phone] Subjective Date of service: 11/19/18 Principal diagnosis: Severe Sepsis; Ac. Hypoxemic Resp failure; Anemia; Seizure; UTI; BPH Interval history: Patient seen and examined. Awake. Alert. Continues to verbalize bilateral hip and buttock pain. No fevers. Objective - Exam Narrative Exam: General appearance: Awake. Alert. Acute pain. Eyes: anicteric sclerae, moist conjunctivae; no lid-lag; PERRLA HENT: Atraumatic; oropharynx limited Neck: Trachea midline; supple, no thyromegaly or lymphadenopathy Lungs: CTA CV: RRR no murmur Abdomen: Soft, non-tender Extremities: marked legs contractions, multiple decubitus ulcers covered with dressings Skin: multiple skin tears Psych: Calm Neuro: alert - Constitutional Vitals: Vital Signs Temp Pulse Resp BP Pulse Ox 99.3 F 96 H 20 107/76 97 11/19/18 09:44 11/19/18 10:23 11/19/18 09:44 11/19/18 10:23 11/19/18 09:44 Temperature -Last 24 Hours Temperature 99.3 F Temperature 98.7 F Temperature 98.3 F Temperature 98.6 F Temperature 98.5 F Temperature 98.0 F - Labs CBC & Chem 7: 11/17/18 08:02 11/17/18 08:02 Labs: Abnormal lab results 11/19/18 11/19/18 11/19/18 Range/Units 00:20 05:35 06:11 POC Glucose 111 H 126 H (70-105) Total Creatine Kinase 53 L (55-170) units/L
[2018-11-19] MEDS: DUONEB *Not for PRN Use IH SCH ×2 (11:05→19:21)
--- NOTE | 2018-11-19 12:04 | Progress Note ---
Assessment and Plan Severe Sepsis Acute Hypoxemic Respiratory failure Anemia of chronic disease Seizure UTI (urinary tract infection) BPH Dementia sacral pressure ulcer -infected. POA - prn CXR's - continue Coreg re: SVT - continue supplemental oxygen as needed to keep O2 sat's > 90% - continue bronchodilators with pulmonary hygiene per RT - complete antibiotics per ID rec's (On Daptomycin) - continue AED's for seizure control (Keppra) - continue fall precautions & neurochecks - continue aspiration precautions - enteral nutrition as tolerated - continue wound care per WCT - continue bright catheter re: Obstructive Uropathy - GI & VTE prophylaxis - continue mobility protocol for pressure ulcer prophylaxis - continue other care per attending / other consultants ...... remains Full CODE ... re-evaluate in am & prn Subjective Date of service: 11/19/18 Principal diagnosis: Severe Sepsis; Ac. Hypoxemic Resp failure; Anemia; Seizure; UTI; BPH Interval history: Patient is seen today for: Severe Sepsis; Acute Hypoxemic Respiratory failure; Anemia of chronic disease; Seizure; UTI (urinary tract infection); BPH; Dementia; sacral pressure ulcer -infected. POA Seen and examined at bedside; 24-hour events reviewed; nursing and respiratory care staff consulted; no adverse overnight events reported to me; resting peacefully in bed; continues of daptomycin; still with mildly increased resp effort but denies SOB; No N/V/F/C; denies acute chest pains Objective Vital Signs - 12hr 11/19/18 11/19/18 11/19/18 03:23 04:45 08:37 Temperature 98.7 F Pulse Rate 91 H 91 H Respiratory 20 18 Rate Blood Pressure 121/78 Blood Pressure [Left] O2 Sat by Pulse 97 Oximetry 11/19/18 11/19/18 11/19/18 09:44 10:00 10:23 Temperature 99.3 F Pulse Rate 96 H 96 H Respiratory 20 Rate Blood Pressure 107/76 Blood Pressure 107/76 [Left] O2 Sat by Pulse 97 98 Oximetry Constitutional: no acute distress, alert, other (elderly looking AAM, normocephalic with mildly increased resp effort at rest) Eyes: non-icteric ENT: oropharynx moist Neck: no lymphadenopathy, no JVD, other (mild stiffness / contracture) Effort: mildly labored Ascultation: Bilateral: diminished breath sounds, rhonchi Percussion: Bilateral: not dull Cardiovascular: regular rate and rhythm Gastrointestinal: normoactive bowel sounds, soft, non-tender, non-distended Integumentary: rash Extremities: no cyanosis, no edema, pulses normal, other (Patient has pressure ulcer at multiple areas, including sacral area.) Neurologic: non-focal exam, pupils equal and round, CN II-XII normal, other (+ contractures) Psychiatric: mood appropriate, affect normal CBC and BMP: 11/20/18 09:55 11/20/18 09:55 ABG, PT/INR, D-dimer: ABG POC ABG pH 7.494 (7.35-7.45) H 11/01/18 15:27 POC ABG pCO2 34.5 (35-45) L 11/01/18 15:27 POC ABG pO2 139 (80-105) H 11/01/18 15:27 POC ABG HCO3 26.5 (22-26 mml/L) 11/01/18 15:27 POC ABG Total CO2 28 (23-27mmol/L) 11/01/18 15:27 POC ABG O2 Sat 99 11/01/18 15:27 PT/INR, D-dimer PT 16.3 Sec. (12.2-14.9) H 11/01/18 14:50 INR 1.35 (0.87-1.13) H 11/01/18 14:50 Abnormal lab findings: Abnormal Labs 11/01/18 11/01/18 11/01/18 14:50 14:50 14:50 WBC 15.3 H RBC 2.76 L Hgb 7.9 L Hct 23.5 L MCH MCHC RDW 18.3 H Plt Count 567 H Lymph % (Auto) 6.5 L [place] % (Auto) 8.5 H Eos % (Auto) Lymph # 1.0 L [place] # 1.3 H Eos # Seg Neutrophils % 83.4 H Seg Neutrophils # 12.7 H PT 16.3 H INR 1.35 H POC ABG pH POC ABG pCO2 POC ABG pO2 VBG pH Sodium Potassium Chloride Carbon Dioxide BUN 49 H Glucose 132 H POC Glucose Magnesium AST 90 H ALT 77 H Alkaline Phosphatase 350 H Total Creatine Kinase NT-Pro-B Natriuret Pep Albumin 1.6 L Urine WBC (Auto) Crossmatch 06/14/19 06/14/19 06/14/19 14:50 14:50 15:27 WBC RBC Hgb Hct MCH MCHC RDW Plt Count Lymph % (Auto) [place] % (Auto) Eos % (Auto) Lymph # [place] # Eos # Seg Neutrophils % Seg Neutrophils # PT INR POC ABG pH 7.494 H POC ABG pCO2 34.5 L POC ABG pO2 139 H VBG pH 7.499 H Sodium Potassium Chloride Carbon Dioxide BUN Glucose POC Glucose Magnesium AST ALT Alkaline Phosphatase Total Creatine Kinase NT-Pro-B Natriuret Pep 6776 H Albumin Urine WBC (Auto) Crossmatch 11/01/18 11/03/18 11/03/18 15:57 03:41 03:41 WBC 12.8 H RBC 2.55 L Hgb 6.9 L Hct 22.2 L MCH 27 L MCHC 31 L RDW 17.9 H Plt Count 519 H Lymph % (Auto) [place] % (Auto) Eos % (Auto) Lymph # [place] # Eos # Seg Neutrophils % Seg Neutrophils # PT INR POC ABG pH POC ABG pCO2 POC ABG pO2 VBG pH Sodium 147 H Potassium Chloride 110.3 H Carbon Dioxide BUN 55 H Glucose POC Glucose Magnesium AST ALT Alkaline Phosphatase Total Creatine Kinase NT-Pro-B Natriuret Pep Albumin Urine WBC (Auto) > 182.0 H Crossmatch 11/03/18 11/04/18 11/04/18 12:51 05:12 05:12 WBC 11.5 H RBC 2.94 L Hgb 8.3 L Hct 25.3 L MCH MCHC RDW 17.3 H Plt Count 514 H Lymph % (Auto) [place] % (Auto) Eos % (Auto) Lymph # [place] # Eos # Seg Neutrophils % Seg Neutrophils # PT INR POC ABG pH POC ABG pCO2 POC ABG pO2 VBG pH Sodium 147 H Potassium Chloride 112.4 H Carbon Dioxide BUN 52 H Glucose POC Glucose Magnesium AST ALT Alkaline Phosphatase Total Creatine Kinase NT-Pro-B Natriuret Pep Albumin Urine WBC (Auto) Crossmatch See Detail 11/05/18 11/05/18 11/06/18 04:50 04:50 05:42 WBC RBC 3.03 L 2.80 L Hgb 8.7 L 7.9 L Hct 26.6 L 24.7 L MCH MCHC RDW 17.1 H 17.0 H Plt Count 502 H 478 H Lymph % (Auto) 10.4 L [place] % (Auto) 8.6 H Eos % (Auto) 4.7 H Lymph # 1.0 L [place] # Eos # 0.5 H Seg Neutrophils % 75.6 H Seg Neutrophils # PT INR POC ABG pH POC ABG pCO2 POC ABG pO2 VBG pH Sodium 149 H Potassium Chloride 114.4 H Carbon Dioxide 21 L BUN 50 H Glucose 108 H POC Glucose Magnesium AST ALT Alkaline Phosphatase Total Creatine Kinase NT-Pro-B Natriuret Pep Albumin Urine WBC (Auto) Crossmatch 11/06/18 11/11/18 11/12/18 05:42 18:54 00:22 WBC RBC Hgb Hct MCH MCHC RDW Plt Count Lymph % (Auto) [place] % (Auto) Eos % (Auto) Lymph # [place] # Eos # Seg Neutrophils % Seg Neutrophils # PT INR POC ABG pH POC ABG pCO2 POC ABG pO2 VBG pH Sodium 149 H Potassium Chloride 113.4 H Carbon Dioxide BUN 50 H Glucose 121 H POC Glucose 114 H 123 H Magnesium AST ALT Alkaline Phosphatase Total Creatine Kinase NT-Pro-B Natriuret Pep Albumin Urine WBC (Auto) Crossmatch 11/12/18 11/12/18 11/13/18 06:49 11:35 06:34 WBC RBC Hgb Hct MCH MCHC RDW Plt Count Lymph % (Auto) [place] % (Auto) Eos % (Auto) Lymph # [place] # Eos # Seg Neutrophils % Seg Neutrophils # PT INR POC ABG pH POC ABG pCO2 POC ABG pO2 VBG pH Sodium Potassium Chloride Carbon Dioxide BUN Glucose POC Glucose 129 H 123 H 128 H Magnesium AST ALT Alkaline Phosphatase Total Creatine Kinase NT-Pro-B Natriuret Pep Albumin Urine WBC (Auto) Crossmatch 11/13/18 11/13/18 11/13/18 09:26 09:26 15:13 WBC RBC 3.08 L Hgb 8.6 L Hct 27.3 L MCH MCHC 31 L RDW 18.3 H Plt Count 504 H Lymph % (Auto) 11.7 L [place] % (Auto) 7.5 H Eos % (Auto) 7.0 H Lymph # [place] # Eos # 0.7 H Seg Neutrophils % 72.9 H Seg Neutrophils # PT INR POC ABG pH POC ABG pCO2 POC ABG pO2 VBG pH Sodium 153 H Potassium 6.3 H* 5.8 H Chloride 122.3 H Carbon Dioxide 21 L BUN 38 H Glucose 112 H POC Glucose Magnesium AST ALT Alkaline Phosphatase Total Creatine Kinase NT-Pro-B Natriuret Pep Albumin Urine WBC (Auto) Crossmatch 11/13/18 11/13/18 11/14/18 22:10 23:45 13:17 WBC RBC Hgb Hct MCH MCHC RDW Plt Count Lymph % (Auto) [place] % (Auto) Eos % (Auto) Lymph # [place] # Eos # Seg Neutrophils % Seg Neutrophils # PT INR POC ABG pH POC ABG pCO2 POC ABG pO2 VBG pH Sodium 155 H Potassium 5.3 H Chloride 122.3 H Carbon Dioxide BUN 35 H Glucose 113 H POC Glucose 111 H 142 H Magnesium AST ALT Alkaline Phosphatase Total Creatine Kinase NT-Pro-B Natriuret Pep Albumin Urine WBC (Auto) Crossmatch 11/14/18 11/15/18 11/15/18 19:08 00:31 06:45 WBC RBC Hgb Hct MCH MCHC RDW Plt Count Lymph % (Auto) [place] % (Auto) Eos % (Auto) Lymph # [place] # Eos # Seg Neutrophils % Seg Neutrophils # PT INR POC ABG pH POC ABG pCO2 POC ABG pO2 VBG pH Sodium Potassium Chloride Carbon Dioxide BUN Glucose POC Glucose 116 H 125 H 131 H Magnesium AST ALT Alkaline Phosphatase Total Creatine Kinase NT-Pro-B Natriuret Pep Albumin Urine WBC (Auto) Crossmatch 11/15/18 11/15/18 11/15/18 07:13 07:13 19:03 WBC 13.2 H RBC 2.81 L Hgb 7.8 L Hct 24.5 L MCH MCHC RDW 18.2 H Plt Count 454 H Lymph % (Auto) 9.0 L [place] % (Auto) 7.5 H Eos % (Auto) Lymph # [place] # 1.0 H Eos # 0.5 H Seg Neutrophils % 78.8 H Seg Neutrophils # 10.4 H PT INR POC ABG pH POC ABG pCO2 POC ABG pO2 VBG pH Sodium 149 H Potassium 5.2 H Chloride 117.2 H Carbon Dioxide BUN 38 H Glucose 114 H POC Glucose 141 H Magnesium AST ALT Alkaline Phosphatase Total Creatine Kinase NT-Pro-B Natriuret Pep Albumin Urine WBC (Auto) Crossmatch 11/16/18 11/16/18 11/16/18 01:15 01:15 06:45 WBC RBC Hgb Hct MCH MCHC RDW Plt Count Lymph % (Auto) [place] % (Auto) Eos % (Auto) Lymph # [place] # Eos # Seg Neutrophils % Seg Neutrophils # PT INR POC ABG pH POC ABG pCO2 POC ABG pO2 VBG pH Sodium Potassium 5.3 H Chloride Carbon Dioxide BUN Glucose POC Glucose 129 H Magnesium 2.60 H AST ALT Alkaline Phosphatase Total Creatine Kinase NT-Pro-B Natriuret Pep Albumin Urine WBC (Auto) Crossmatch 11/16/18 11/16/18 11/17/18 13:20 18:02 00:16 WBC RBC Hgb Hct MCH MCHC RDW Plt Count Lymph % (Auto) [place] % (Auto) Eos % (Auto) Lymph # [place] # Eos # Seg Neutrophils % Seg Neutrophils # PT INR POC ABG pH POC ABG pCO2 POC ABG pO2 VBG pH Sodium Potassium Chloride Carbon Dioxide BUN Glucose POC Glucose 130 H 127 H 120 H Magnesium AST ALT Alkaline Phosphatase Total Creatine Kinase NT-Pro-B Natriuret Pep Albumin Urine WBC (Auto) Crossmatch 11/17/18 11/17/18 11/17/18 05:48 08:02 08:02 WBC RBC Hgb 7.5 L Hct 23.5 L MCH MCHC RDW Plt Count Lymph % (Auto) [place] % (Auto) Eos % (Auto) Lymph # [place] # Eos # Seg Neutrophils % Seg Neutrophils # PT INR POC ABG pH POC ABG pCO2 POC ABG pO2 VBG pH Sodium Potassium Chloride 110.1 H Carbon Dioxide 21 L BUN 38 H Glucose 121 H POC Glucose 130 H Magnesium AST ALT Alkaline Phosphatase Total Creatine Kinase NT-Pro-B Natriuret Pep Albumin Urine WBC (Auto) Crossmatch 11/17/18 11/17/18 11/18/18 12:17 16:48 06:00 WBC RBC Hgb Hct MCH MCHC RDW Plt Count Lymph % (Auto) [place] % (Auto) Eos % (Auto) Lymph # [place] # Eos # Seg Neutrophils % Seg Neutrophils # PT INR POC ABG pH POC ABG pCO2 POC ABG pO2 VBG pH Sodium Potassium Chloride Carbon Dioxide BUN Glucose POC Glucose 140 H 120 H 137 H Magnesium AST ALT Alkaline Phosphatase Total Creatine Kinase NT-Pro-B Natriuret Pep Albumin Urine WBC (Auto) Crossmatch 11/19/18 11/19/18 11/19/18 00:20 05:35 06:11 WBC RBC Hgb Hct MCH MCHC RDW Plt Count Lymph % (Auto) [place] % (Auto) Eos % (Auto) Lymph # [place] # Eos # Seg Neutrophils % Seg Neutrophils # PT INR POC ABG pH POC ABG pCO2 POC ABG pO2 VBG pH Sodium Potassium Chloride Carbon Dioxide BUN Glucose POC Glucose 111 H 126 H Magnesium AST ALT Alkaline Phosphatase Total Creatine Kinase 53 L NT-Pro-B Natriuret Pep Albumin Urine WBC (Auto) Crossmatch 11/19/18 11:37 WBC RBC Hgb Hct MCH MCHC RDW Plt Count Lymph % (Auto) [place] % (Auto) Eos % (Auto) Lymph # [place] # Eos # Seg Neutrophils % Seg Neutrophils # PT INR POC ABG pH POC ABG pCO2 POC ABG pO2 VBG pH Sodium Potassium Chloride Carbon Dioxide BUN Glucose POC Glucose 139 H Magnesium AST ALT Alkaline Phosphatase Total Creatine Kinase NT-Pro-B Natriuret Pep Albumin Urine WBC (Auto) Crossmatch Allied health notes reviewed: nursing
[2018-11-19] MEDS: MORPHINE IV PRN ×2 (13:12→17:52)
--- NOTE | 2018-11-19 14:08 | Progress Note ---
Assessment and Plan Assessment and plan: 67-year-old male with history of HTN, CVA, Obstructive Uropathy, Diastolic CHF, Contracture, Sacral Decubitus Ulcers, PR, DM, OA, Seizure Disorder, COPD, Dementia, BPH presents to ED for evaluation. Pt is stuporous and unable to provide history. Pt history taken from ED Staff, EMS, and SNF Staff. As per staff, the patient was found to have respiratory distress upon evaluation this morning. Pt found to have pulse oximetry in the 80's. EMS notified and patient subsequently transported to [facility] for further care and evaluation. Pt seen and evaluated in ED and found to have UTI, Sepsis, Encephalopathy as well as Acute Hypoxemic Respiratory Failure. Pt initiated on NIPPV in ED with improvement in symptoms. Pt initially admitted to [facility] now transferred to [facility]. Extensive discussion with family about patients poor prognosis surgery consulted for possible debridment ID following, Pulmonary status improved Continue isolation care, Chaudhary placed by Urology please do not remove Discharge pending [facility] Paroxysmal SVTs -Cardiology was consulted during this admission -Patient was started on Coreg 6.25 and twice a day - Continue to monitor for now, we'll further follow up with cardiology if having SVTs more frequently - We'll monitor potassium, magnesium Sepsis with MRSA bacteremia, UTI, Infected decub ulcer POA, osteomyelitis poa - Patient had being multiple admission in the past including this one for similar situation - Previously discussed multiple time with family for hospice placement but they refused - Patient was previously discharged with vancomycin for MRSA bacteremia - He readmitted this time while he was on vancomycin and blood cultures still growing MRSA - Changed antibiotic to daptomycin per ID - at discharge will need daptomycin 400 mg IV q day for 6 weeks until 12/16/2018, Order placed with case management Sacral pressure ulcer -infected. POA WOUND CARE CONSULTed. CONTINUE ABX. Debridement done by Dr Man Amputation recommended and the daughter refused Acute on chronic encephalopathy - Due to sepsis and underlying dementia - Continue to provide supportive care Acute hypoxemic Respiratory failure Likely from underlying CHF exacerbation and profound sepsis cont Supplemental oxygen, nebulizer therapy, mgt per pulmonology CHFeEF 30-35% with exacerbation, poa - Continue to monitor in's and O's, daily weight, aspirin and statin and beta chandan, patient is allergic to ACEI Anemia of chronic disease Transfused one unit PRBC hemoglobin is stable Seizure Continue current therapy, seizure precautions. BPH status post TURP and obstructive uropathy Continue Chaudhary catherter placed by urology during this admission Chronic Dementia supportive care DVT prophylaxis Prophylactic lovenox POOR PROGNOSIS Disposition; Arranged family meeting on 11/14 with hospice case manager patient's daughters, granddaughter and ex- along with Dr. Wynne. Family still wants to continue the antibiotic treatment, but they mention if antibiotic treatment fails this time and patient continued to spike fever or remains bacteremic with daptomycin then they would possibly consider hospice. Family also considering for DO NOT RESUSCITATE and does not want any life support for the patient, but they did not signed the DNR form yet. [facility] as soon as isolation room is available. History Interval history: No new complaints overnight, no fever Hospitalist Physical - Physical exam Narrative exam: Gen: Not in acute distress. Vital signs as documented. Head exam is unremarkable. No scleral icterus . Neck is without jugular venous distension, thyromegaly, or carotid bruits. Lungs are clear to auscultation. Cardiac exam reveals regular rate and Rhythm. First and second heart sounds normal. No murmurs, rubs or gallops. Abdominal exam reveals normal bowel sounds, no masses, no organomegaly and no aortic enlargement. Extremities contracted extremities. RESIDENT DOCTOR: Does not follow command, contracted extremities Skin; multiple decubitus ulcers, including the sacrum and the heel. - Constitutional Vitals: Temp Pulse Resp BP Pulse Ox 99.3 F 96 H 20 107/76 98 11/19/18 09:44 11/19/18 10:23 11/19/18 09:44 11/19/18 10:23 11/19/18 10:00 General appearance: Present: no acute distress Results - Labs CBC & Chem 7: 11/17/18 08:02 11/17/18 08:02 Labs: Laboratory Last Values WBC 13.2 K/mm3 (4.5-11.0) H 11/15/18 07:13 RBC 2.81 M/mm3 (3.65-5.03) L 11/15/18 07:13 Hgb 7.5 gm/dl (11.8-15.2) L 11/17/18 08:02 Hct 23.5 % (35.5-45.6) L 11/17/18 08:02 MCV 87 fl (84-94) 11/15/18 07:13 MCH 28 pg (28-32) 11/15/18 07:13 MCHC 32 % (32-34) 11/15/18 07:13 RDW 18.2 % (13.2-15.2) H 11/15/18 07:13 Plt Count 454 K/mm3 (140-440) H 11/15/18 07:13 Lymph % (Auto) 9.0 % (13.4-35.0) L 11/15/18 07:13 Grand % (Auto) 7.5 % (0.0-7.3) H 11/15/18 07:13 Eos % (Auto) 3.9 % (0.0-4.3) 11/15/18 07:13 Baso % (Auto) 0.8 % (0.0-1.8) 11/15/18 07:13 Lymph # 1.2 K/mm3 (1.2-5.4) 11/15/18 07:13 Grand # 1.0 K/mm3 (0.0-0.8) H 11/15/18 07:13 Eos # 0.5 K/mm3 (0.0-0.4) H 11/15/18 07:13 Baso # 0.1 K/mm3 (0.0-0.1) 11/15/18 07:13 Seg Neutrophils % 78.8 % (40.0-70.0) H 11/15/18 07:13 Seg Neutrophils # 10.4 K/mm3 (1.8-7.7) H 11/15/18 07:13 PT 16.3 Sec. (12.2-14.9) H 11/01/18 14:50 INR 1.35 (0.87-1.13) H 11/01/18 14:50 POC ABG pH 7.494 (7.35-7.45) H 11/01/18 15:27 POC ABG pCO2 34.5 (35-45) L 11/01/18 15:27 POC ABG pO2 139 (80-105) H 11/01/18 15:27 POC ABG HCO3 26.5 (22-26 mml/L) 11/01/18 15:27 POC ABG Total CO2 28 (23-27mmol/L) 11/01/18 15:27 POC ABG O2 Sat 99 11/01/18 15:27 POC ABG Base Excess 3 ((-2) - (+3)mmol/L) 11/01/18 15:27 VBG pH 7.499 (7.320-7.420) H 11/01/18 14:50 50 % 11/01/18 15:27 Sodium 144 mmol/L (137-145) 11/17/18 08:02 Potassium 4.2 mmol/L (3.6-5.0) D 11/17/18 08:02 Chloride 110.1 mmol/L (98-107) H 11/17/18 08:02 Carbon Dioxide 21 mmol/L (22-30) L 11/17/18 08:02 17 mmol/L 11/17/18 08:02 BUN 38 mg/dL (9-20) H 11/17/18 08:02 1.2 mg/dL (0.8-1.5) 11/17/18 08:02 Estimated GFR > 60 ml/min 11/17/18 08:02 32 % 11/17/18 08:02 Glucose 121 mg/dL (75-100) H 11/17/18 08:02 POC Glucose 139 (70-105) H 11/19/18 11:37 Lactic Acid 1.80 mmol/L (0.7-2.0) 11/01/18 14:50 Calcium 8.4 mg/dL (8.4-10.2) 11/17/18 08:02 Magnesium 2.60 mg/dL (1.7-2.3) H 11/16/18 01:15 0.30 mg/dL (0.1-1.2) 11/01/18 14:50 AST 90 units/L (5-40) H 11/01/18 14:50 ALT 77 units/L (7-56) H 11/01/18 14:50 350 units/L (35-129) H 11/01/18 14:50 53 units/L (55-170) L 11/19/18 05:35 NT-Pro-B Natriuret Pep 6776 pg/mL (0-900) H 11/01/18 14:50 7.9 g/dL (6.3-8.2) 11/01/18 14:50 1.6 g/dL (3.9-5) L 11/01/18 14:50 0.3 % 11/01/18 14:50 Yellow (Yellow) 11/01/18 15:57 Turbid (Clear) 11/01/18 15:57 6.0 (5.0-7.0) 11/01/18 15:57 Ur Specific [place] 1.016 (1.003-1.030) 11/01/18 15:57 100 mg/dl mg/dL (Negative) 11/01/18 15:57 Neg mg/dL (Negative) 11/01/18 15:57 Neg mg/dL (Negative) 11/01/18 15:57 Neg (Negative) 11/01/18 15:57 Neg (Negative) 11/01/18 15:57 Neg (Negative) 11/01/18 15:57 < 2.0 mg/dL (<2.0) 11/01/18 15:57 Ur Leukocyte Esterase Mod (Negative) 11/01/18 15:57 > 182.0 /HPF (0.0-6.0) H 11/01/18 15:57 40.0 /HPF (0.0-6.0) 11/01/18 15:57 U Epithel Cells (Auto) 8.0 /HPF (0-13.0) 11/01/18 15:57 3+ /HPF 11/01/18 15:57 3+ /HPF 11/01/18 15:57 Random Vancomycin 13.9 ug/mL (0-40.0) 11/02/18 05:05 Blood Type O POSITIVE 11/03/18 12:51 Antibody Screen Negative 11/03/18 12:51 Crossmatch See Detail 11/03/18 12:51 Active Medications - Current Medications Current Medications: Generic Name Dose Route Start Last Admin Trade Name Freq PRN Reason Stop Dose Admin Acetaminophen/Hydrocodone Bitart 1 each 11/15/18 04:51 11/16/18 18:50 [place] 5/325 PO 1 each Q4H PRN Administration Pain, Moderate (4-6) Albuterol 2.5 mg 11/01/18 17:15 Proventil IH Q3HRT PRN Shortness Of Breath Albuterol/Ipratropium 1 ampul 11/09/18 20:00 11/19/18 11:05 Duoneb *Not For Prn Use* IH 1 ampul BIDRT NORA Administration Lipase/Protease/Amylase 1 each 11/03/18 17:12 Pancrenomi Moore 10,500 Unit FEEDTUBE PRN PRN For Clogged Feeding Tube Ascorbic Acid 500 mg 11/01/18 22:00 11/19/18 10:23 Vitamin C FEEDTUBE 500 mg BID NORA Administration Atorvastatin Calcium 40 mg 11/01/18 22:00 11/18/18 22:09 Lipitor FEEDTUBE 40 mg QHS NORA Administration Carvedilol 6.25 mg 11/08/18 13:00 11/19/18 10:23 Coreg PO 6.25 mg BID NORA Administration Clonidine HCl 0.2 mg 11/05/18 17:18 11/12/18 16:23 Catapres-Tts Patch TD 0.2 mg Tu NORA Administration Enoxaparin Sodium 40 mg 11/02/18 10:00 11/19/18 10:23 Lovenox SUB-Q 40 mg QDAY@1000 NORA Administration Daptomycin 400 mg/ Sodium 100 mls @ 200 mls/hr 11/09/18 21:00 11/18/18 22:42 Chloride IV 12/16/18 23:59 200 mls/hr Q24H NORA Administration Protocol Levetiracetam 500 mg 11/01/18 22:00 11/19/18 10:23 Keppra FEEDTUBE 500 mg BID NORA Administration Morphine Sulfate 2 mg 11/01/18 17:15 11/19/18 13:12 Morphine IV 2 mg Q4H PRN Administration Pain, Moderate (4-6) Multivitamins 5 ml 11/02/18 10:00 11/19/18 10:23 Centrum Liq FEEDTUBE 5 ml QDAY NORA Administration Simple Syrup 15 ml 11/03/18 17:12 11/16/18 13:40 Simple Syrup FEEDTUBE 15 ml PRN PRN Administration Hypoglycemia Simple Syrup 30 ml 11/03/18 17:12 Simple Syrup FEEDTUBE PRN PRN Hypoglycemia Sodium Bicarbonate 325 mg 11/03/18 17:12 11/16/18 13:36 Sodium Bicarbonate FEEDTUBE 325 mg PRN PRN Administration For Clogged Feeding Tube Sodium Chloride 10 ml 11/01/18 22:00 11/19/18 10:24 Sodium Chloride Flush Syringe 10 Ml IV Not Given BID NORA Sodium Chloride 10 ml 11/01/18 17:15 Sodium Chloride Flush Syringe 10 Ml IV PRN PRN LINE FLUSH Sodium Hypochlorite 1 applic 11/08/18 11:00 11/19/18 10:25 Dakin's Half Strength TP 10 applicatio BID NORA Administration Zinc Sulfate 220 mg 11/02/18 10:00 11/19/18 10:23 Zinc Sulfate PO 220 mg DAILY NORA Administration Nutrition/Malnutrition Assess - Dietary Evaluation Nutrition/Malnutrition Findings: Nutrition Notes Start: 11/04/18 16:00 Freq: Status: Active Protocol: Document 11/18/18 16:37 RM (Rec: 11/18/18 16:40 RM [id number]) Nutrition Notes Initial or Follow up Reassessment Current Diagnosis COPD,Diabetes,Sepsis, Hypertension,Heart Failure, Stroke Other Pertinent Diagnosis Sacral PUs, UTI, Dementia Current Diet Nepro at 40 ml/hr Labs/Tests Na 144 K 4.2 Pertinent Medications Reviewed Height 5 ft 8 in Weight 61.1 kg Lynn Body Weight (kg) 70.00 BMI 20.5 Subjective/Other Information Pt wounds being cleaned at time of visit. Nurse stated that pt is tolerating TF at goal rate. Percent of energy/protein needs met: 100%/100% Burn Absent Trauma Absent #1 Nutrition Diagnosis Inadequate oral intake Diagnosis Progress(for reassessment Continues documentation) Is patient on ventilator? No Is Patient Ambulatory and/or Out of Bed No REE-([facility]-confined to bed) 1632.396 Calculation Used for Recommendations [facility] Additional Notes Protein Needs: 76-95g (1.2-1. 5g/kg) Fluid Needs: 1 ml/kcal Nutrition Intervention Nutrition Support: Nepro 1.8 at 40 ml/hr. Water flush of 200 mls q 4 hrs . Kcal 1,728 Protein (gm) 78 Fluid (mL) 698 Goal #1 TF tolerance Goal #2 Continue to meet at least 75% of calorie and protein needs via TF Anticipated Discharge Needs: Unable to determine at this time Follow-Up By: 11/22/18 Additional Comments Follow for TF tolerance
[2018-11-19] MEDS: CATAPRES-TTS PATCH TD SCH (16:33)
[2018-11-19] MEDS: DAPTOMYCIN IV SCH (21:14)
[2018-11-19] MEDS: NACL 0.9% IV SCH (21:14)
[2018-11-20] MEDS: DUONEB *Not for PRN Use IH SCH ×2 (07:39→20:05)
--- NOTE | 2018-11-20 08:54 | Procedure Note ---
Date of procedure: 11/19/18 Pre-op diagnosis: Multiple decubitus pressure ulcers - see below Post-op diagnosis: same Procedure: Debridement of multiple decubitus ulcers - see below Description of procedure: Pt was positioned on his bed so as to expose his pressure ulcerations. He was administered IV morphine. His left hip was surgically excisionally debrided of necrotic bone and fascia with a curette. His right medial leg, right heel, sacrum, left heel and right lateral leg were surgically excisionally debrided of necrotic muscle and fascia with a curette. His right knee, left lateral ankle and right lateral ankle were surgically excisionally debrided of necrotic SQ tissue with a curette. Bleeding was minimal at all the above sites and was controlled with pressure. Pt tolerated the procedure well. Wounds were dressed by the Wound Care nurses. Final wound measurements were as follows: 1) Left hip - 6 x 5 x 7 cm 2) Right medial leg - 9 x 2.5 x 0.4 cm 3) Right heel - 3 x 3 x 0.8 cm 4) Sacrum - 12 x 12 x 2 cm 5) Left heel - 4.5 x 6 x 1 cm 6) Right lateral leg - 9 x 2.5 x 0.5 cm 7) Right knee - 2.5 x 2.5 x 0.3 cm 8) Left lateral ankle - 3 x 3 x 0.4 cm 9) Right lateral ankle - 2.5 x 2.5 x 0.3 cm Anesthesia: other (IV morphine) Surgeon: FABRICIO WASHINGTON Estimated blood loss: minimal Pathology: none Specimen disposition: discarded Condition: stable Disposition: no change
[2018-11-20 10:58] LABS: Hematocrit 26.1 % (35.5-45.6); Hemoglobin 8.4 gm/dl (11.8-15.2); Mean Corpuscular HGB Conc 32 % (32-34); Mean Corpuscular Volume 86 fl (84-94); Platelet Count 410 K/mm3 (140-440); Red Blood Count 3.04 M/mm3 (3.65-5.03); Red Cell Distribution Width 17.5 % (13.2-15.2)
--- NOTE | 2018-11-20 11:12 | Progress Note ---
Assessment and Plan Cultures: Blood culture 10/01/2018 MRSA 2 of 4. Blood culture 10/03/2018 MRSA Blood culture 10/08/2018 no growth Blood culture 10/11/2018 no growth Blood culture 10/21/2018 no growth Blood culture 11/01/2018 Staph haemolyticus 2 of 4 bottles, resistent to methicillin and MRSA 1 of 4 bottles Blood culture 11/04/2018 no growth Assessment: 67 y/o male with history of HTN, CVA, Obstructive Uropathy, Contracture, Multiple Decubitus Ulcers, [place], DM, OA, Seizure Disorder, COPD, Dementia, Debility, BPH, well known to ID due to multiple admissions secondary to ducubitus ulcers infections and recurrent bacteremia, last time admitted on 10/02/2018 found with MRSA bacteremia jessica from decubitus ulcers mainly active large left trochanteric with bone exposure and sacral with bone exposure. Patient's infection was deemed incurable and hospice was recommended. Patient was discharged back to [place] on IV vancomycin 1 gm every 48 hours for total 6 weeks ending 11/12/2018 via neck tunneled cath. Patient was readmitted on due to AMS, worsening SOB. Patient is lethargic and unable to provide history. At the [facility] he was found to have respiratory distress upon evaluation the morning of admission,pulse oximetry in the 80's: 1) Severe Sepsis: Improved. Etiology most likely Recurrent Staph bacteremia +/- CAUTI. 2) Staph haemolyticus and MRSA bacteremia with recent MRSA bacteremia: Blood culture 11/01/2018 Staph haemolyticus 2 of 4 bottles and MRSA 1 of 4. Source likely multiple decubitus ulcers or Neck IV central line. Patient is failing vancomycin. He has a tunneled neck cath. Recent TTE negative for vegetations. On daptomycin. 3) Recent septic shock due to polymicrobial bacteremia ESBL and carbapenem resistant E coli, MDR Proteus, Strep and E faecalis on 07/29/2018 probably from multiple infected decubitus ulcers and less likely UTI. Repeat blood cultures 07/31/2018 showed same MDR E coli 1 of 4 bottles then 08/06/2018 blood cultures showed no growth. Patient was treated with Vabomere for 14 days. 4) Multiple infected decubitus ulcers: His prognosis has been poor and hospice has been recommended several times in the past but family has declined. declined. His wounds are not curable considering his contractures, bed bound status and poor nutritional status. There was also suspicion of septic arthritis of left hip from decubitus ulcer. S/p debridement of multiple pressure ulcerations on 11/07/2018- stage 4 left hip pressure ulceration was surgically excisionally debrided of necrotic bone, stage 3 sacral, right ankle and left heel pressure ulcers were then surgically, excisionally debrided of necrotic SQ fat, stage 4 right heel, left lateral heel and right lateral leg ulcerations were surgically, excisionally debrided of necrotic SQ tissue, muscle and fascia.. s/p debridement 11/13/18 of multiple stage 3/4 pressure u lcers sacrum, right lateral leg, right lateral ankle, left heel, left hip and right heel Dr Man recommended bilateral AKA, patient and daughter refused. Dr Man recommended Orthopedic consultation for possible left hip disarticulation as his left hip joint is crumbling and has profuse purulent drainage. s/p Debridement of multiple decubitus ulcers 11/19/18 . 5) Recurrent UTI: patient's bright was removed home 2 weeks ago, a new bright placed here 6) Acute encephalopathy: multifactorial. 7) Acute resp failure: was on BIPAP now NC O2. EF 30-35% pericaldial and pleural effusion. Recommendations: - continue Daptomycin IV for now D13 - always contact isolation - at discharge will do daptomycin 400 mg IV q day for 6 weeks until 12/16/2018, Order placed with case management Extremely poor prognosis [facility] M: [phone] O:[phone] Subjective Date of service: 11/20/18 Principal diagnosis: bacteremia, sepsis, acute encephalaopthy, hpoxia Interval history: Patient seen and examined. Awake. Alert. Continues to verbalize bilateral hip and buttock pain. No fevers. Objective - Exam Narrative Exam: General appearance: Awake. Alert. Acute pain. Eyes: anicteric sclerae, moist conjunctivae; no lid-lag; PERRLA HENT: Atraumatic; oropharynx limited Neck: Trachea midline; supple, no thyromegaly or lymphadenopathy Lungs: CTA CV: RRR no murmur Abdomen: Soft, non-tender Extremities: marked legs contractions, multiple decubitus ulcers covered with dressings Skin: multiple skin tears Psych: Calm Neuro: alert - Constitutional Vitals: Vital Signs Temp Pulse Resp BP Pulse Ox 98.0 F 87 17 142/80 96 11/20/18 07:36 11/20/18 07:50 11/20/18 07:50 11/20/18 07:36 11/20/18 09:03 Temperature -Last 24 Hours Temperature 98.0 F Temperature 98.0 F Temperature 99.6 F Temperature 98.4 F - Labs CBC & Chem 7: 11/20/18 09:55 11/20/18 09:55 Labs: Abnormal lab results 11/19/18 11/19/18 11/20/18 Range/Units 11:37 23:43 06:52 RBC (3.65-5.03) M/mm3 Hgb (11.8-15.2) gm/dl Hct (35.5-45.6) % RDW (13.2-15.2) % POC Glucose 139 H 145 H 125 H (70-105) 11/20/18 Range/Units 09:55 RBC 3.04 L (3.65-5.03) M/mm3 Hgb 8.4 L (11.8-15.2) gm/dl Hct 26.1 L (35.5-45.6) % RDW 17.5 H (13.2-15.2) % POC Glucose (70-105)
[2018-11-20 11:24] LABS: BUN/Creatinine Ratio 39; Blood Urea Nitrogen 35 mg/dL (9-20); Calcium 9.2 mg/dL (8.4-10.2); Hemolysis Index 3
[2018-11-20] MEDS: ZINC SULFATE PO SCH ×2 (12:00→15:27)
[2018-11-20] MEDS: VITAMIN C FEEDTUBE SCH ×4 (12:00→22:45)
--- NOTE | 2018-11-20 12:24 | Progress Note ---
Assessment and Plan Assessment and plan: 67-year-old male with history of HTN, CVA, Obstructive Uropathy, Diastolic CHF, Contracture, Sacral Decubitus Ulcers, MT, DM, OA, Seizure Disorder, COPD, Dementia, BPH presents to ED for evaluation. Pt is stuporous and unable to provide history. Pt history taken from ED Staff, EMS, and SNF Staff. As per staff, the patient was found to have respiratory distress upon evaluation this morning. Pt found to have pulse oximetry in the 80's. EMS notified and patient subsequently transported to [facility] for further care and evaluation. Pt seen and evaluated in ED and found to have UTI, Sepsis, Encephalopathy as well as Acute Hypoxemic Respiratory Failure. Pt initiated on NIPPV in ED with improvement in symptoms. Pt initially admitted to [facility] now transferred to [facility]. Extensive discussion with family about patients poor prognosis surgery consulted for possible debridment ID following, Pulmonary status improved Continue isolation care, Chaudhary placed by Urology please do not remove Discharge pending on isolation room availability at the senior living Paroxysmal SVTs -Cardiology was consulted during this admission -Patient was started on Coreg 6.25 and twice a day - Continue to monitor for now, we'll further follow up with cardiology if having SVTs more frequently - We'll monitor potassium, magnesium Sepsis with MRSA bacteremia, UTI, Infected decub ulcer POA, osteomyelitis poa - Patient had being multiple admission in the past including this one for similar situation - Previously discussed multiple time with family for hospice placement but they refused - Patient was previously discharged with vancomycin for MRSA bacteremia - He readmitted this time while he was on vancomycin and blood cultures still growing MRSA - Changed antibiotic to daptomycin per ID - at discharge will need daptomycin 400 mg IV q day for 6 weeks until 12/16/2018, Order placed with case management Sacral pressure ulcer -infected. POA Wound care nurse following. Debridement done by Dr Man Amputation recommended and the daughter refused Acute on chronic encephalopathy - Due to sepsis and underlying dementia - Continue to provide supportive care Acute hypoxemic Respiratory failure Likely from underlying CHF exacerbation and profound sepsis cont Supplemental oxygen, nebulizer therapy, mgt per pulmonology CHFeEF 30-35% with exacerbation, poa - Continue to monitor in's and O's, daily weight, aspirin and statin and beta chandan, patient is allergic to ACEI Anemia of chronic disease Transfused one unit PRBC hemoglobin is stable Seizure Continue current therapy, seizure precautions. BPH status post TURP and obstructive uropathy Continue Chaudhary catherter placed by urology during this admission Chronic Dementia supportive care DVT prophylaxis Prophylactic lovenox POOR PROGNOSIS Disposition; Arranged family meeting on 11/14 with case fitter patient's arun cope, granddaughter and ex- along with Dr. Wynne. Family still wants to continue the antibiotic treatment, but they mention if antibiotic treatment fails this time and patient continued to spike fever or remains bacteremic with daptomycin then they would possibly consider hospice. Family also considering for DO NOT RESUSCITATE and does not want any life support for the patient, but they did not signed the DNR form yet. Patient will be discharged back to the senior living/[facility] as soon as isolation room is available. History Interval history: had debridement multiple decubitus ulcers today Hospitalist Physical - Physical exam Narrative exam: Gen: Not in acute distress. Vital signs as documented. Head exam is unremarkable. No scleral icterus . Neck is without jugular venous distension, thyromegaly, or carotid bruits. Lungs are clear to auscultation. Cardiac exam reveals regular rate and Rhythm. First and second heart sounds normal. No murmurs, rubs or gallops. Abdominal exam reveals normal bowel sounds, no masses, no organomegaly and no aortic enlargement. Extremities contracted extremities. 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 - Constitutional Vitals: Temp Pulse Resp BP Pulse Ox 98.4 F 94 H 20 141/86 97 11/20/18 11:46 11/20/18 11:44 11/20/18 11:46 11/20/18 11:44 11/20/18 11:44 General appearance: Present: no acute distress Results - Labs CBC & Chem 7: 11/20/18 09:55 11/20/18 09:55 Labs: Laboratory Last Values WBC 8.9 K/mm3 (4.5-11.0) 11/20/18 09:55 RBC 3.04 M/mm3 (3.65-5.03) L 11/20/18 09:55 Hgb 8.4 gm/dl (11.8-15.2) L 11/20/18 09:55 Hct 26.1 % (35.5-45.6) L 11/20/18 09:55 MCV 86 fl (84-94) 11/20/18 09:55 MCH 28 pg (28-32) 11/20/18 09:55 MCHC 32 % (32-34) 11/20/18 09:55 RDW 17.5 % (13.2-15.2) H 11/20/18 09:55 Plt Count 410 K/mm3 (140-440) 11/20/18 09:55 Lymph % (Auto) 9.0 % (13.4-35.0) L 11/15/18 07:13 [place] % (Auto) 7.5 % (0.0-7.3) H 11/15/18 07:13 Eos % (Auto) 3.9 % (0.0-4.3) 11/15/18 07:13 Baso % (Auto) 0.8 % (0.0-1.8) 11/15/18 07:13 Lymph # 1.2 K/mm3 (1.2-5.4) 11/15/18 07:13 [place] # 1.0 K/mm3 (0.0-0.8) H 11/15/18 07:13 Eos # 0.5 K/mm3 (0.0-0.4) H 11/15/18 07:13 Baso # 0.1 K/mm3 (0.0-0.1) 11/15/18 07:13 Seg Neutrophils % 78.8 % (40.0-70.0) H 11/15/18 07:13 Seg Neutrophils # 10.4 K/mm3 (1.8-7.7) H 11/15/18 07:13 PT 16.3 Sec. (12.2-14.9) H 11/01/18 14:50 INR 1.35 (0.87-1.13) H 11/01/18 14:50 POC ABG pH 7.494 (7.35-7.45) H 11/01/18 15:27 POC ABG pCO2 34.5 (35-45) L 11/01/18 15:27 POC ABG pO2 139 (80-105) H 11/01/18 15:27 POC ABG HCO3 26.5 (22-26 mml/L) 11/01/18 15:27 POC ABG Total CO2 28 (23-27mmol/L) 11/01/18 15:27 POC ABG O2 Sat 99 11/01/18 15:27 POC ABG Base Excess 3 ((-2) - (+3)mmol/L) 11/01/18 15:27 VBG pH 7.499 (7.320-7.420) H 11/01/18 14:50 50 % 11/01/18 15:27 Sodium 149 mmol/L (137-145) H 11/20/18 09:55 Potassium 3.8 mmol/L (3.6-5.0) 11/20/18 09:55 Chloride 114.5 mmol/L (98-107) H 11/20/18 09:55 Carbon Dioxide 21 mmol/L (22-30) L 11/20/18 09:55 17 mmol/L 11/20/18 09:55 BUN 35 mg/dL (9-20) H 11/20/18 09:55 0.9 mg/dL (0.8-1.5) 11/20/18 09:55 Estimated GFR > 60 ml/min 11/20/18 09:55 39 % 11/20/18 09:55 Glucose 127 mg/dL (75-100) H 11/20/18 09:55 POC Glucose 150 (70-105) H 11/20/18 11:49 Lactic Acid 1.80 mmol/L (0.7-2.0) 11/01/18 14:50 Calcium 9.2 mg/dL (8.4-10.2) 11/20/18 09:55 Magnesium 2.60 mg/dL (1.7-2.3) H 11/16/18 01:15 0.30 mg/dL (0.1-1.2) 11/01/18 14:50 AST 90 units/L (5-40) H 11/01/18 14:50 ALT 77 units/L (7-56) H 11/01/18 14:50 350 units/L (35-129) H 11/01/18 14:50 53 units/L (55-170) L 11/19/18 05:35 NT-Pro-B Natriuret Pep 6776 pg/mL (0-900) H 11/01/18 14:50 7.9 g/dL (6.3-8.2) 11/01/18 14:50 1.6 g/dL (3.9-5) L 11/01/18 14:50 0.3 % 11/01/18 14:50 Yellow (Yellow) 11/01/18 15:57 Turbid (Clear) 11/01/18 15:57 6.0 (5.0-7.0) 11/01/18 15:57 Ur Specific [place] 1.016 (1.003-1.030) 11/01/18 15:57 100 mg/dl mg/dL (Negative) 11/01/18 15:57 Neg mg/dL (Negative) 11/01/18 15:57 Neg mg/dL (Negative) 11/01/18 15:57 Neg (Negative) 11/01/18 15:57 Neg (Negative) 11/01/18 15:57 Neg (Negative) 11/01/18 15:57 < 2.0 mg/dL (<2.0) 11/01/18 15:57 Ur Leukocyte Esterase Mod (Negative) 11/01/18 15:57 > 182.0 /HPF (0.0-6.0) H 11/01/18 15:57 40.0 /HPF (0.0-6.0) 11/01/18 15:57 U Epithel Cells (Auto) 8.0 /HPF (0-13.0) 11/01/18 15:57 3+ /HPF 11/01/18 15:57 3+ /HPF 11/01/18 15:57 Random Vancomycin 13.9 ug/mL (0-40.0) 11/02/18 05:05 Blood Type O POSITIVE 11/03/18 12:51 Antibody Screen Negative 11/03/18 12:51 Crossmatch See Detail 11/03/18 12:51 Active Medications - Current Medications Current Medications: Generic Name Dose Route Start Last Admin Trade Name Freq PRN Reason Stop Dose Admin Acetaminophen/Hydrocodone Bitart 1 each 11/15/18 04:51 11/16/18 18:50 [place] 5/325 PO 1 each Q4H PRN Administration Pain, Moderate (4-6) Albuterol 2.5 mg 11/01/18 17:15 Proventil IH Q3HRT PRN Shortness Of Breath Albuterol/Ipratropium 1 ampul 11/09/18 20:00 11/20/18 07:39 Duoneb *Not For Prn Use* IH 1 ampul BIDRT NORA Administration Lipase/Protease/Amylase 1 each 11/03/18 17:12 Pancrenomi Moore 10,500 Unit FEEDTUBE PRN PRN For Clogged Feeding Tube Ascorbic Acid 500 mg 11/01/18 22:00 11/19/18 21:14 Vitamin C FEEDTUBE 500 mg BID NORA Administration Atorvastatin Calcium 40 mg 11/01/18 22:00 11/19/18 21:14 Lipitor FEEDTUBE 40 mg QHS NORA Administration Carvedilol 6.25 mg 11/08/18 13:00 11/19/18 21:14 Coreg PO 6.25 mg BID NORA Administration Clonidine HCl 0.2 mg 11/05/18 17:18 11/19/18 16:33 Catapres-Tts Patch TD 0.2 mg Tu NORA Administration Enoxaparin Sodium 40 mg 11/02/18 10:00 11/19/18 10:23 Lovenox SUB-Q 40 mg QDAY@1000 NORA Administration Daptomycin 400 mg/ Sodium 100 mls @ 200 mls/hr 11/09/18 21:00 11/19/18 21:14 Chloride IV 12/16/18 23:59 200 mls/hr Q24H NORA Administration Protocol Dextrose 1,000 mls @ 75 mls/hr 11/20/18 13:00 D5w IV DIRECT NORA Levetiracetam 500 mg 11/01/18 22:00 11/19/18 21:14 Keppra FEEDTUBE 500 mg BID NORA Administration Morphine Sulfate 2 mg 11/01/18 17:15 11/19/18 17:52 Morphine IV 2 mg Q4H PRN Administration Pain, Moderate (4-6) Multivitamins 5 ml 11/02/18 10:00 11/19/18 10:23 Centrum Liq FEEDTUBE 5 ml QDAY NORA Administration Simple Syrup 15 ml 11/03/18 17:12 11/16/18 13:40 Simple Syrup FEEDTUBE 15 ml PRN PRN Administration Hypoglycemia Simple Syrup 30 ml 11/03/18 17:12 Simple Syrup FEEDTUBE PRN PRN Hypoglycemia Sodium Bicarbonate 325 mg 11/03/18 17:12 11/16/18 13:36 Sodium Bicarbonate FEEDTUBE 325 mg PRN PRN Administration For Clogged Feeding Tube Sodium Chloride 10 ml 11/01/18 22:00 11/19/18 21:15 Sodium Chloride Flush Syringe 10 Ml IV 10 ml BID NORA Administration Sodium Chloride 10 ml 11/01/18 17:15 Sodium Chloride Flush Syringe 10 Ml IV PRN PRN LINE FLUSH Sodium Hypochlorite 1 applic 11/08/18 11:00 11/19/18 21:13 Dakin's Half Strength TP 1 applicatio BID NORA Administration Zinc Sulfate 220 mg 11/02/18 10:00 11/19/18 10:23 Zinc Sulfate PO 220 mg DAILY NORA Administration Nutrition/Malnutrition Assess - Dietary Evaluation Nutrition/Malnutrition Findings: Nutrition Notes Start: 11/04/18 16:00 Freq: Status: Active Protocol: Document 11/18/18 16:37 RM (Rec: 11/18/18 16:40 RM [id number]) Nutrition Notes Initial or Follow up Reassessment Current Diagnosis COPD,Diabetes,Sepsis, Hypertension,Heart Failure, Stroke Other Pertinent Diagnosis Sacral PUs, UTI, Dementia Current Diet Nepro at 40 ml/hr Labs/Tests Na 144 K 4.2 Pertinent Medications Reviewed Height 5 ft 8 in Weight 61.1 kg [place] Body Weight (kg) 70.00 BMI 20.5 Subjective/Other Information Pt wounds being cleaned at time of visit. Nurse stated that pt is tolerating TF at goal rate. Percent of energy/protein needs met: 100%/100% Burn Absent Trauma Absent #1 Nutrition Diagnosis Inadequate oral intake Diagnosis Progress(for reassessment Continues documentation) Is patient on ventilator? No Is Patient Ambulatory and/or Out of Bed No REE-([facility]-confined to bed) [phone] Calculation Used for Recommendations [facility] Additional Notes Protein Needs: 76-95g (1.2-1. 5g/kg) Fluid Needs: 1 ml/kcal Nutrition Intervention Nutrition Support: Nepro 1.8 at 40 ml/hr. Water flush of 200 mls q 4 hrs . Kcal 1,728 Protein (gm) 78 Fluid (mL) 698 Goal #1 TF tolerance Goal #2 Continue to meet at least 75% of calorie and protein needs via TF Anticipated Discharge Needs: Unable to determine at this time Follow-Up By: 11/22/18 Additional Comments Follow for TF tolerance
--- NOTE | 2018-11-20 12:42 | Progress Note ---
Assessment and Plan Severe Sepsis Acute Hypoxemic Respiratory failure Anemia of chronic disease Seizure UTI (urinary tract infection) BPH Dementia sacral pressure ulcer -infected. POA - prn BIPAP fort increased work of breathing - prn CXR's - continue supplemental oxygen as needed to keep O2 sat's > 90% - continue bronchodilators with pulmonary hygiene per RT - complete antibiotics per ID rec's (On Daptomycin) - continue Coreg re: SVT - continue AED's for seizure control (Keppra) - continue fall precautions & neurochecks - continue aspiration precautions - enteral nutrition as tolerated - continue wound care per WCT - continue bright catheter re: Obstructive Uropathy - GI & VTE prophylaxis - continue mobility protocol for pressure ulcer prophylaxis - continue other care per attending / other consultants ...... remains Full CODE ... re-evaluate in am & prn Subjective Date of service: 11/20/18 Principal diagnosis: Severe Sepsis; Ac. Hypoxemic Resp failure; Anemia; Seizure; UTI; BPH Interval history: Patient is seen today for: Severe Sepsis; Acute Hypoxemic Respiratory failure; Anemia of chronic disease; Seizure; UTI (urinary tract infection); BPH; Dementia; sacral pressure ulcer -infected. POA Seen and examined at bedside; 24-hour events reviewed; nursing and respiratory care staff consulted; no adverse overnight events reported to me; resting peacefully in bed; breathing slightly labored; no emesis or overt aspiration; Afebrile Objective Vital Signs - 12hr 11/20/18 11/20/18 11/20/18 05:04 07:36 07:39 Temperature 98.0 F 98.0 F Pulse Rate 90 95 H Pulse Rate [ 86 Bilateral Throughout] Respiratory 20 18 Rate Respiratory 18 Rate [Bilateral Throughout] Blood Pressure 123/76 142/80 O2 Sat by Pulse 94 94 Oximetry 11/20/18 11/20/18 11/20/18 07:50 09:03 11:44 Temperature 98.6 F Pulse Rate 94 H Pulse Rate [ 87 Bilateral Throughout] Respiratory 20 Rate Respiratory 17 Rate [Bilateral Throughout] Blood Pressure 141/86 O2 Sat by Pulse 96 97 Oximetry 11/20/18 11:46 Temperature 98.4 F Pulse Rate Pulse Rate [ Bilateral Throughout] Respiratory 20 Rate Respiratory Rate [Bilateral Throughout] Blood Pressure O2 Sat by Pulse Oximetry Constitutional: no acute distress, alert, other (elderly looking AAM, normocephalic with mildly increased resp effort at rest) Eyes: non-icteric ENT: oropharynx moist Neck: no lymphadenopathy, no JVD, other (mild stiffness / contracture) Effort: mildly labored Ascultation: Bilateral: diminished breath sounds, rhonchi Percussion: Bilateral: not dull Cardiovascular: regular rate and rhythm Gastrointestinal: normoactive bowel sounds, soft, non-tender, non-distended Integumentary: rash Extremities: no cyanosis, no edema, pulses normal, other (Patient has pressure ulcer at multiple areas, including sacral area.) Neurologic: non-focal exam, pupils equal and round, CN II-XII normal, other (+ contractures) Psychiatric: mood appropriate, affect normal CBC and BMP: 11/20/18 09:55 11/23/18 05:56 ABG, PT/INR, D-dimer: ABG POC ABG pH 7.494 (7.35-7.45) H 11/01/18 15:27 POC ABG pCO2 34.5 (35-45) L 11/01/18 15:27 POC ABG pO2 139 (80-105) H 11/01/18 15:27 POC ABG HCO3 26.5 (22-26 mml/L) 11/01/18 15:27 POC ABG Total CO2 28 (23-27mmol/L) 11/01/18 15:27 POC ABG O2 Sat 99 11/01/18 15:27 PT/INR, D-dimer PT 16.3 Sec. (12.2-14.9) H 11/01/18 14:50 INR 1.35 (0.87-1.13) H 11/01/18 14:50 Abnormal lab findings: Abnormal Labs 11/01/18 11/01/18 11/01/18 14:50 14:50 14:50 WBC 15.3 H RBC 2.76 L Hgb 7.9 L Hct 23.5 L MCH MCHC RDW 18.3 H Plt Count 567 H Lymph % (Auto) 6.5 L [place] % (Auto) 8.5 H Eos % (Auto) Lymph # 1.0 L [place] # 1.3 H Eos # Seg Neutrophils % 83.4 H Seg Neutrophils # 12.7 H PT 16.3 H INR 1.35 H POC ABG pH POC ABG pCO2 POC ABG pO2 VBG pH Sodium Potassium Chloride Carbon Dioxide BUN 49 H Glucose 132 H POC Glucose Magnesium AST 90 H ALT 77 H Alkaline Phosphatase 350 H Total Creatine Kinase NT-Pro-B Natriuret Pep Albumin 1.6 L Urine WBC (Auto) Crossmatch 11/01/18 11/01/18 11/01/18 14:50 14:50 15:27 WBC RBC Hgb Hct MCH MCHC RDW Plt Count Lymph % (Auto) [place] % (Auto) Eos % (Auto) Lymph # [place] # Eos # Seg Neutrophils % Seg Neutrophils # PT INR POC ABG pH 7.494 H POC ABG pCO2 34.5 L POC ABG pO2 139 H VBG pH 7.499 H Sodium Potassium Chloride Carbon Dioxide BUN Glucose POC Glucose Magnesium AST ALT Alkaline Phosphatase Total Creatine Kinase NT-Pro-B Natriuret Pep 6776 H Albumin Urine WBC (Auto) Crossmatch 11/01/18 11/03/18 11/03/18 15:57 03:41 03:41 WBC 12.8 H RBC 2.55 L Hgb 6.9 L Hct 22.2 L MCH 27 L MCHC 31 L RDW 17.9 H Plt Count 519 H Lymph % (Auto) [place] % (Auto) Eos % (Auto) Lymph # [place] # Eos # Seg Neutrophils % Seg Neutrophils # PT INR POC ABG pH POC ABG pCO2 POC ABG pO2 VBG pH Sodium 147 H Potassium Chloride 110.3 H Carbon Dioxide BUN 55 H Glucose POC Glucose Magnesium AST ALT Alkaline Phosphatase Total Creatine Kinase NT-Pro-B Natriuret Pep Albumin Urine WBC (Auto) > 182.0 H Crossmatch 11/03/18 11/04/18 11/04/18 12:51 05:12 05:12 WBC 11.5 H RBC 2.94 L Hgb 8.3 L Hct 25.3 L MCH MCHC RDW 17.3 H Plt Count 514 H Lymph % (Auto) [place] % (Auto) Eos % (Auto) Lymph # [place] # Eos # Seg Neutrophils % Seg Neutrophils # PT INR POC ABG pH POC ABG pCO2 POC ABG pO2 VBG pH Sodium 147 H Potassium Chloride 112.4 H Carbon Dioxide BUN 52 H Glucose POC Glucose Magnesium AST ALT Alkaline Phosphatase Total Creatine Kinase NT-Pro-B Natriuret Pep Albumin Urine WBC (Auto) Crossmatch See Detail 11/05/18 11/05/18 11/06/18 04:50 04:50 05:42 WBC RBC 3.03 L 2.80 L Hgb 8.7 L 7.9 L Hct 26.6 L 24.7 L MCH MCHC RDW 17.1 H 17.0 H Plt Count 502 H 478 H Lymph % (Auto) 10.4 L [place] % (Auto) 8.6 H Eos % (Auto) 4.7 H Lymph # 1.0 L [place] # Eos # 0.5 H Seg Neutrophils % 75.6 H Seg Neutrophils # PT INR POC ABG pH POC ABG pCO2 POC ABG pO2 VBG pH Sodium 149 H Potassium Chloride 114.4 H Carbon Dioxide 21 L BUN 50 H Glucose 108 H POC Glucose Magnesium AST ALT Alkaline Phosphatase Total Creatine Kinase NT-Pro-B Natriuret Pep Albumin Urine WBC (Auto) Crossmatch 11/06/18 11/11/18 11/12/18 05:42 18:54 00:22 WBC RBC Hgb Hct MCH MCHC RDW Plt Count Lymph % (Auto) [place] % (Auto) Eos % (Auto) Lymph # [place] # Eos # Seg Neutrophils % Seg Neutrophils # PT INR POC ABG pH POC ABG pCO2 POC ABG pO2 VBG pH Sodium 149 H Potassium Chloride 113.4 H Carbon Dioxide BUN 50 H Glucose 121 H POC Glucose 114 H 123 H Magnesium AST ALT Alkaline Phosphatase Total Creatine Kinase NT-Pro-B Natriuret Pep Albumin Urine WBC (Auto) Crossmatch 11/12/18 11/12/18 11/13/18 06:49 11:35 06:34 WBC RBC Hgb Hct MCH MCHC RDW Plt Count Lymph % (Auto) [place] % (Auto) Eos % (Auto) Lymph # [place] # Eos # Seg Neutrophils % Seg Neutrophils # PT INR POC ABG pH POC ABG pCO2 POC ABG pO2 VBG pH Sodium Potassium Chloride Carbon Dioxide BUN Glucose POC Glucose 129 H 123 H 128 H Magnesium AST ALT Alkaline Phosphatase Total Creatine Kinase NT-Pro-B Natriuret Pep Albumin Urine WBC (Auto) Crossmatch 11/13/18 11/13/18 11/13/18 09:26 09:26 15:13 WBC RBC 3.08 L Hgb 8.6 L Hct 27.3 L MCH MCHC 31 L RDW 18.3 H Plt Count 504 H Lymph % (Auto) 11.7 L [place] % (Auto) 7.5 H Eos % (Auto) 7.0 H Lymph # [place] # Eos # 0.7 H Seg Neutrophils % 72.9 H Seg Neutrophils # PT INR POC ABG pH POC ABG pCO2 POC ABG pO2 VBG pH Sodium 153 H Potassium 6.3 H* 5.8 H Chloride 122.3 H Carbon Dioxide 21 L BUN 38 H Glucose 112 H POC Glucose Magnesium AST ALT Alkaline Phosphatase Total Creatine Kinase NT-Pro-B Natriuret Pep Albumin Urine WBC (Auto) Crossmatch 11/13/18 11/13/18 11/14/18 22:10 23:45 13:17 WBC RBC Hgb Hct MCH MCHC RDW Plt Count Lymph % (Auto) [place] % (Auto) Eos % (Auto) Lymph # [place] # Eos # Seg Neutrophils % Seg Neutrophils # PT INR POC ABG pH POC ABG pCO2 POC ABG pO2 VBG pH Sodium 155 H Potassium 5.3 H Chloride 122.3 H Carbon Dioxide BUN 35 H Glucose 113 H POC Glucose 111 H 142 H Magnesium AST ALT Alkaline Phosphatase Total Creatine Kinase NT-Pro-B Natriuret Pep Albumin Urine WBC (Auto) Crossmatch 11/14/18 11/15/18 11/15/18 19:08 00:31 06:45 WBC RBC Hgb Hct MCH MCHC RDW Plt Count Lymph % (Auto) [place] % (Auto) Eos % (Auto) Lymph # [place] # Eos # Seg Neutrophils % Seg Neutrophils # PT INR POC ABG pH POC ABG pCO2 POC ABG pO2 VBG pH Sodium Potassium Chloride Carbon Dioxide BUN Glucose POC Glucose 116 H 125 H 131 H Magnesium AST ALT Alkaline Phosphatase Total Creatine Kinase NT-Pro-B Natriuret Pep Albumin Urine WBC (Auto) Crossmatch 11/15/18 11/15/18 11/15/18 07:13 07:13 19:03 WBC 13.2 H RBC 2.81 L Hgb 7.8 L Hct 24.5 L MCH MCHC RDW 18.2 H Plt Count 454 H Lymph % (Auto) 9.0 L [place] % (Auto) 7.5 H Eos % (Auto) Lymph # [place] # 1.0 H Eos # 0.5 H Seg Neutrophils % 78.8 H Seg Neutrophils # 10.4 H PT INR POC ABG pH POC ABG pCO2 POC ABG pO2 VBG pH Sodium 149 H Potassium 5.2 H Chloride 117.2 H Carbon Dioxide BUN 38 H Glucose 114 H POC Glucose 141 H Magnesium AST ALT Alkaline Phosphatase Total Creatine Kinase NT-Pro-B Natriuret Pep Albumin Urine WBC (Auto) Crossmatch 11/16/18 11/16/18 11/16/18 01:15 01:15 06:45 WBC RBC Hgb Hct MCH MCHC RDW Plt Count Lymph % (Auto) [place] % (Auto) Eos % (Auto) Lymph # [place] # Eos # Seg Neutrophils % Seg Neutrophils # PT INR POC ABG pH POC ABG pCO2 POC ABG pO2 VBG pH Sodium Potassium 5.3 H Chloride Carbon Dioxide BUN Glucose POC Glucose 129 H Magnesium 2.60 H AST ALT Alkaline Phosphatase Total Creatine Kinase NT-Pro-B Natriuret Pep Albumin Urine WBC (Auto) Crossmatch 11/16/18 11/16/18 11/17/18 13:20 18:02 00:16 WBC RBC Hgb Hct MCH MCHC RDW Plt Count Lymph % (Auto) [place] % (Auto) Eos % (Auto) Lymph # [place] # Eos # Seg Neutrophils % Seg Neutrophils # PT INR POC ABG pH POC ABG pCO2 POC ABG pO2 VBG pH Sodium Potassium Chloride Carbon Dioxide BUN Glucose POC Glucose 130 H 127 H 120 H Magnesium AST ALT Alkaline Phosphatase Total Creatine Kinase NT-Pro-B Natriuret Pep Albumin Urine WBC (Auto) Crossmatch 11/17/18 11/17/18 11/17/18 05:48 08:02 08:02 WBC RBC Hgb 7.5 L Hct 23.5 L MCH MCHC RDW Plt Count Lymph % (Auto) [place] % (Auto) Eos % (Auto) Lymph # [place] # Eos # Seg Neutrophils % Seg Neutrophils # PT INR POC ABG pH POC ABG pCO2 POC ABG pO2 VBG pH Sodium Potassium Chloride 110.1 H Carbon Dioxide 21 L BUN 38 H Glucose 121 H POC Glucose 130 H Magnesium AST ALT Alkaline Phosphatase Total Creatine Kinase NT-Pro-B Natriuret Pep Albumin Urine WBC (Auto) Crossmatch 11/17/18 11/17/18 11/18/18 12:17 16:48 06:00 WBC RBC Hgb Hct MCH MCHC RDW Plt Count Lymph % (Auto) [place] % (Auto) Eos % (Auto) Lymph # [place] # Eos # Seg Neutrophils % Seg Neutrophils # PT INR POC ABG pH POC ABG pCO2 POC ABG pO2 VBG pH Sodium Potassium Chloride Carbon Dioxide BUN Glucose POC Glucose 140 H 120 H 137 H Magnesium AST ALT Alkaline Phosphatase Total Creatine Kinase NT-Pro-B Natriuret Pep Albumin Urine WBC (Auto) Crossmatch 11/19/18 11/19/18 11/19/18 00:20 05:35 06:11 WBC RBC Hgb Hct MCH MCHC RDW Plt Count Lymph % (Auto) [place] % (Auto) Eos % (Auto) Lymph # [place] # Eos # Seg Neutrophils % Seg Neutrophils # PT INR POC ABG pH POC ABG pCO2 POC ABG pO2 VBG pH Sodium Potassium Chloride Carbon Dioxide BUN Glucose POC Glucose 111 H 126 H Magnesium AST ALT Alkaline Phosphatase Total Creatine Kinase 53 L NT-Pro-B Natriuret Pep Albumin Urine WBC (Auto) Crossmatch 11/19/18 11/19/18 11/20/18 11:37 23:43 06:52 WBC RBC Hgb Hct MCH MCHC RDW Plt Count Lymph % (Auto) [place] % (Auto) Eos % (Auto) Lymph # [place] # Eos # Seg Neutrophils % Seg Neutrophils # PT INR POC ABG pH POC ABG pCO2 POC ABG pO2 VBG pH Sodium Potassium Chloride Carbon Dioxide BUN Glucose POC Glucose 139 H 145 H 125 H Magnesium AST ALT Alkaline Phosphatase Total Creatine Kinase NT-Pro-B Natriuret Pep Albumin Urine WBC (Auto) Crossmatch 11/20/18 11/20/18 11/20/18 09:55 09:55 11:49 WBC RBC 3.04 L Hgb 8.4 L Hct 26.1 L MCH MCHC RDW 17.5 H Plt Count Lymph % (Auto) [place] % (Auto) Eos % (Auto) Lymph # [place] # Eos # Seg Neutrophils % Seg Neutrophils # PT INR POC ABG pH POC ABG pCO2 POC ABG pO2 VBG pH Sodium 149 H Potassium Chloride 114.5 H Carbon Dioxide 21 L BUN 35 H Glucose 127 H POC Glucose 150 H Magnesium AST ALT Alkaline Phosphatase Total Creatine Kinase NT-Pro-B Natriuret Pep Albumin Urine WBC (Auto) Crossmatch Allied health notes reviewed: nursing
[2018-11-20] MEDS: Centrum Liq FEEDTUBE SCH (13:17)
[2018-11-20] MEDS: DAKIN'S HALF STRENGTH TP SCH ×2 (13:21→22:48)
[2018-11-20] MEDS: SODIUM CHLORIDE FLUSH SYRINGE 10 ML IV SCH ×2 (13:22→22:46)
[2018-11-20] MEDS: LOVENOX SUB-Q SCH (13:22)
[2018-11-20] MEDS: D5W 1,000 ML IV SCH ×2 (13:34→22:47)
[2018-11-20] MEDS: PANCREAZE DR 10,500 UNIT FEEDTUBE PRN (15:19)
[2018-11-20] MEDS: COREG PO SCH ×3 (15:21→22:45)
[2018-11-20] MEDS: KEPPRA FEEDTUBE SCH ×2 (15:26→22:44)
[2018-11-20] MEDS: DAPTOMYCIN IV SCH (21:00)
[2018-11-20] MEDS: NACL 0.9% IV SCH (21:00)
[2018-11-20] MEDS: MORPHINE IV PRN (22:43)
[2018-11-21] MEDS: DUONEB *Not for PRN Use IH SCH (07:43)
--- NOTE | 2018-11-21 08:14 | Progress Note ---
Assessment and Plan (1) Sepsis- severe Current Visit: Yes Status: Acute Plan to address problem: Volume resuscitation cautiously Antibiotics per ID (2) Respiratory failure Current Visit: Yes Status: Acute Qualifiers: Chronicity: acute Respiratory failure complication: hypoxia Qualified Code(s): J96.01 - Acute respiratory failure with hypoxia Plan to address problem: Supplemental oxygen wean fro O2 sats >90% Bronchodilaotrs per protocol Judicious use of IVF to prevent pulmonary edema (3) Seizure Current Visit: Yes Status: Acute Plan to address problem: Continue current therapy, seizure precautions. (4) UTI (urinary tract infection) Current Visit: Yes Status: Acute Qualifiers: Encounter type: initial encounter Plan to address problem: IV antibiotic therapy (5) Dementia Current Visit: Yes Status: Acute Qualifiers: Dementia behavioral disturbance: without behavioral disturbance Plan to address problem: Per primary (6) sacral pressure ulcer -infected. POA WOUND CARE CONSULT. CONTINUE ABX. (7)DVT prophylaxis Current Visit: Yes Status: Acute Plan to address problem: SCD to BLE while in bed, Prophylactic lovenox POOR PROGNOSIS Subjective Date of service: 11/21/18 Principal diagnosis: bacteremia, sepsis, acute encephalaopthy, hpoxia Interval history: Patient is seen today for: Severe Sepsis; Acute Hypoxemic Respiratory failure; Anemia of chronic disease; Seizure; UTI (urinary tract infection); BPH; Dementia; sacral pressure ulcer -infected. POA Seen and examined at bedside; 24-hour events reviewed; nursing and respiratory care staff consulted; no adverse overnight events reported to me; resting peacefully in bed; No N/V/F/C; s/p debridment of multile pressure ulcers; Vitals, labs, medications, chart reviewed. On 3L NC, comfortable, Right chest wall tunnelled PICC line Objective Vital Signs - 12hr 11/20/18 11/20/18 11/20/18 22:00 22:45 23:42 Temperature 98.4 F Pulse Rate 88 85 Pulse Rate [ Bilateral Throughout] Respiratory 20 18 Rate Respiratory Rate [Bilateral Throughout] Blood Pressure 124/68 111/59 O2 Sat by Pulse 94 Oximetry 11/21/18 11/21/18 03:55 07:43 Temperature 97.7 F Pulse Rate 81 Pulse Rate [ 88 Bilateral Throughout] Respiratory 20 Rate Respiratory 17 Rate [Bilateral Throughout] Blood Pressure 123/62 O2 Sat by Pulse 97 Oximetry Constitutional: no acute distress, alert, other (elderly looking AAM, normocephalic with mildly increased resp effort at rest) Eyes: non-icteric ENT: oropharynx moist Neck: no lymphadenopathy, no JVD, other (mild stiffness / contracture) Effort: mildly labored Ascultation: Bilateral: diminished breath sounds, rhonchi Percussion: Bilateral: not dull Cardiovascular: regular rate and rhythm Gastrointestinal: normoactive bowel sounds, soft, non-tender, non-distended Integumentary: rash Extremities: no cyanosis, no edema, pulses normal, other (Patient has pressure ulcer at multiple areas, including sacral area.) Neurologic: non-focal exam, pupils equal and round, CN II-XII normal, other (+ contractures) Psychiatric: mood appropriate, affect normal CBC and BMP: 11/20/18 09:55 11/22/18 05:47 ABG, PT/INR, D-dimer: ABG POC ABG pH 7.494 (7.35-7.45) H 11/01/18 15:27 POC ABG pCO2 34.5 (35-45) L 11/01/18 15:27 POC ABG pO2 139 (80-105) H 11/01/18 15:27 POC ABG HCO3 26.5 (22-26 mml/L) 11/01/18 15:27 POC ABG Total CO2 28 (23-27mmol/L) 11/01/18 15:27 POC ABG O2 Sat 99 11/01/18 15:27 PT/INR, D-dimer PT 16.3 Sec. (12.2-14.9) H 11/01/18 14:50 INR 1.35 (0.87-1.13) H 11/01/18 14:50 Abnormal lab findings: Abnormal Labs 11/01/18 11/01/18 11/01/18 14:50 14:50 14:50 WBC 15.3 H RBC 2.76 L Hgb 7.9 L Hct 23.5 L MCH MCHC RDW 18.3 H Plt Count 567 H Lymph % (Auto) 6.5 L Kern % (Auto) 8.5 H Eos % (Auto) Lymph # 1.0 L Kern # 1.3 H Eos # Seg Neutrophils % 83.4 H Seg Neutrophils # 12.7 H PT 16.3 H INR 1.35 H POC ABG pH POC ABG pCO2 POC ABG pO2 VBG pH Sodium Potassium Chloride Carbon Dioxide BUN 49 H Glucose 132 H POC Glucose Magnesium AST 90 H ALT 77 H Alkaline Phosphatase 350 H Total Creatine Kinase NT-Pro-B Natriuret Pep Albumin 1.6 L Urine WBC (Auto) Crossmatch 11/01/18 11/01/18 11/01/18 14:50 14:50 15:27 WBC RBC Hgb Hct MCH MCHC RDW Plt Count Lymph % (Auto) Kern % (Auto) Eos % (Auto) Lymph # Kern # Eos # Seg Neutrophils % Seg Neutrophils # PT INR POC ABG pH 7.494 H POC ABG pCO2 34.5 L POC ABG pO2 139 H VBG pH 7.499 H Sodium Potassium Chloride Carbon Dioxide BUN Glucose POC Glucose Magnesium AST ALT Alkaline Phosphatase Total Creatine Kinase NT-Pro-B Natriuret Pep 6776 H Albumin Urine WBC (Auto) Crossmatch 11/01/18 11/03/18 11/03/18 15:57 03:41 03:41 WBC 12.8 H RBC 2.55 L Hgb 6.9 L Hct 22.2 L MCH 27 L MCHC 31 L RDW 17.9 H Plt Count 519 H Lymph % (Auto) Kern % (Auto) Eos % (Auto) Lymph # Kern # Eos # Seg Neutrophils % Seg Neutrophils # PT INR POC ABG pH POC ABG pCO2 POC ABG pO2 VBG pH Sodium 147 H Potassium Chloride 110.3 H Carbon Dioxide BUN 55 H Glucose POC Glucose Magnesium AST ALT Alkaline Phosphatase Total Creatine Kinase NT-Pro-B Natriuret Pep Albumin Urine WBC (Auto) > 182.0 H Crossmatch 11/03/18 11/04/18 11/04/18 12:51 05:12 05:12 WBC 11.5 H RBC 2.94 L Hgb 8.3 L Hct 25.3 L MCH MCHC RDW 17.3 H Plt Count 514 H Lymph % (Auto) Kern % (Auto) Eos % (Auto) Lymph # [place] # Eos # Seg Neutrophils % Seg Neutrophils # PT INR POC ABG pH POC ABG pCO2 POC ABG pO2 VBG pH Sodium 147 H Potassium Chloride 112.4 H Carbon Dioxide BUN 52 H Glucose POC Glucose Magnesium AST ALT Alkaline Phosphatase Total Creatine Kinase NT-Pro-B Natriuret Pep Albumin Urine WBC (Auto) Crossmatch See Detail 11/05/18 11/05/18 11/06/18 04:50 04:50 05:42 WBC RBC 3.03 L 2.80 L Hgb 8.7 L 7.9 L Hct 26.6 L 24.7 L MCH MCHC RDW 17.1 H 17.0 H Plt Count 502 H 478 H Lymph % (Auto) 10.4 L Kern % (Auto) 8.6 H Eos % (Auto) 4.7 H Lymph # 1.0 L Kern # Eos # 0.5 H Seg Neutrophils % 75.6 H Seg Neutrophils # PT INR POC ABG pH POC ABG pCO2 POC ABG pO2 VBG pH Sodium 149 H Potassium Chloride 114.4 H Carbon Dioxide 21 L BUN 50 H Glucose 108 H POC Glucose Magnesium AST ALT Alkaline Phosphatase Total Creatine Kinase NT-Pro-B Natriuret Pep Albumin Urine WBC (Auto) Crossmatch 11/06/18 11/11/18 11/12/18 05:42 18:54 00:22 WBC RBC Hgb Hct MCH MCHC RDW Plt Count Lymph % (Auto) Kern % (Auto) Eos % (Auto) Lymph # Kern # Eos # Seg Neutrophils % Seg Neutrophils # PT INR POC ABG pH POC ABG pCO2 POC ABG pO2 VBG pH Sodium 149 H Potassium Chloride 113.4 H Carbon Dioxide BUN 50 H Glucose 121 H POC Glucose 114 H 123 H Magnesium AST ALT Alkaline Phosphatase Total Creatine Kinase NT-Pro-B Natriuret Pep Albumin Urine WBC (Auto) Crossmatch 11/12/18 11/12/18 11/13/18 06:49 11:35 06:34 WBC RBC Hgb Hct MCH MCHC RDW Plt Count Lymph % (Auto) Kern % (Auto) Eos % (Auto) Lymph # [place]ern # Eos # Seg Neutrophils % Seg Neutrophils # PT INR POC ABG pH POC ABG pCO2 POC ABG pO2 VBG pH Sodium Potassium Chloride Carbon Dioxide BUN Glucose POC Glucose 129 H 123 H 128 H Magnesium AST ALT Alkaline Phosphatase Total Creatine Kinase NT-Pro-B Natriuret Pep Albumin Urine WBC (Auto) Crossmatch 11/13/18 11/13/18 11/13/18 09:26 09:26 15:13 WBC RBC 3.08 L Hgb 8.6 L Hct 27.3 L MCH MCHC 31 L RDW 18.3 H Plt Count 504 H Lymph % (Auto) 11.7 L Kern % (Auto) 7.5 H Eos % (Auto) 7.0 H Lymph # Kern # Eos # 0.7 H Seg Neutrophils % 72.9 H Seg Neutrophils # PT INR POC ABG pH POC ABG pCO2 POC ABG pO2 VBG pH Sodium 153 H Potassium 6.3 H* 5.8 H Chloride 122.3 H Carbon Dioxide 21 L BUN 38 H Glucose 112 H POC Glucose Magnesium AST ALT Alkaline Phosphatase Total Creatine Kinase NT-Pro-B Natriuret Pep Albumin Urine WBC (Auto) Crossmatch 11/13/18 11/13/18 11/14/18 22:10 23:45 13:17 WBC RBC Hgb Hct MCH MCHC RDW Plt Count Lymph % (Auto) Kern % (Auto) Eos % (Auto) Lymph # [place] # Eos # Seg Neutrophils % Seg Neutrophils # PT INR POC ABG pH POC ABG pCO2 POC ABG pO2 VBG pH Sodium 155 H Potassium 5.3 H Chloride 122.3 H Carbon Dioxide BUN 35 H Glucose 113 H POC Glucose 111 H 142 H Magnesium AST ALT Alkaline Phosphatase Total Creatine Kinase NT-Pro-B Natriuret Pep Albumin Urine WBC (Auto) Crossmatch 11/14/18 11/15/18 11/15/18 19:08 00:31 06:45 WBC RBC Hgb Hct MCH MCHC RDW Plt Count Lymph % (Auto) Kern % (Auto) Eos % (Auto) Lymph # [place]ern # Eos # Seg Neutrophils % Seg Neutrophils # PT INR POC ABG pH POC ABG pCO2 POC ABG pO2 VBG pH Sodium Potassium Chloride Carbon Dioxide BUN Glucose POC Glucose 116 H 125 H 131 H Magnesium AST ALT Alkaline Phosphatase Total Creatine Kinase NT-Pro-B Natriuret Pep Albumin Urine WBC (Auto) Crossmatch 11/15/18 11/15/18 11/15/18 07:13 07:13 19:03 WBC 13.2 H RBC 2.81 L Hgb 7.8 L Hct 24.5 L MCH MCHC RDW 18.2 H Plt Count 454 H Lymph % (Auto) 9.0 L Kern % (Auto) 7.5 H Eos % (Auto) Lymph # Kern # 1.0 H Eos # 0.5 H Seg Neutrophils % 78.8 H Seg Neutrophils # 10.4 H PT INR POC ABG pH POC ABG pCO2 POC ABG pO2 VBG pH Sodium 149 H Potassium 5.2 H Chloride 117.2 H Carbon Dioxide BUN 38 H Glucose 114 H POC Glucose 141 H Magnesium AST ALT Alkaline Phosphatase Total Creatine Kinase NT-Pro-B Natriuret Pep Albumin Urine WBC (Auto) Crossmatch 11/16/18 11/16/18 11/16/18 01:15 01:15 06:45 WBC RBC Hgb Hct MCH MCHC RDW Plt Count Lymph % (Auto) Kern % (Auto) Eos % (Auto) Lymph # [place] # Eos # Seg Neutrophils % Seg Neutrophils # PT INR POC ABG pH POC ABG pCO2 POC ABG pO2 VBG pH Sodium Potassium 5.3 H Chloride Carbon Dioxide BUN Glucose POC Glucose 129 H Magnesium 2.60 H AST ALT Alkaline Phosphatase Total Creatine Kinase NT-Pro-B Natriuret Pep Albumin Urine WBC (Auto) Crossmatch 11/16/18 11/16/18 11/17/18 13:20 18:02 00:16 WBC RBC Hgb Hct MCH MCHC RDW Plt Count Lymph % (Auto) Kern % (Auto) Eos % (Auto) Lymph # [place] # Eos # Seg Neutrophils % Seg Neutrophils # PT INR POC ABG pH POC ABG pCO2 POC ABG pO2 VBG pH Sodium Potassium Chloride Carbon Dioxide BUN Glucose POC Glucose 130 H 127 H 120 H Magnesium AST ALT Alkaline Phosphatase Total Creatine Kinase NT-Pro-B Natriuret Pep Albumin Urine WBC (Auto) Crossmatch 11/17/18 11/17/18 11/17/18 05:48 08:02 08:02 WBC RBC Hgb 7.5 L Hct 23.5 L MCH MCHC RDW Plt Count Lymph % (Auto) Kern % (Auto) Eos % (Auto) Lymph # [place] # Eos # Seg Neutrophils % Seg Neutrophils # PT INR POC ABG pH POC ABG pCO2 POC ABG pO2 VBG pH Sodium Potassium Chloride 110.1 H Carbon Dioxide 21 L BUN 38 H Glucose 121 H POC Glucose 130 H Magnesium AST ALT Alkaline Phosphatase Total Creatine Kinase NT-Pro-B Natriuret Pep Albumin Urine WBC (Auto) Crossmatch 11/17/18 11/17/18 11/18/18 12:17 16:48 06:00 WBC RBC Hgb Hct MCH MCHC RDW Plt Count Lymph % (Auto) Kern % (Auto) Eos % (Auto) Lymph # [place] # Eos # Seg Neutrophils % Seg Neutrophils # PT INR POC ABG pH POC ABG pCO2 POC ABG pO2 VBG pH Sodium Potassium Chloride Carbon Dioxide BUN Glucose POC Glucose 140 H 120 H 137 H Magnesium AST ALT Alkaline Phosphatase Total Creatine Kinase NT-Pro-B Natriuret Pep Albumin Urine WBC (Auto) Crossmatch 11/19/18 11/19/18 11/19/18 00:20 05:35 06:11 WBC RBC Hgb Hct MCH MCHC RDW Plt Count Lymph % (Auto) Kern % (Auto) Eos % (Auto) Lymph # [place] # Eos # Seg Neutrophils % Seg Neutrophils # PT INR POC ABG pH POC ABG pCO2 POC ABG pO2 VBG pH Sodium Potassium Chloride Carbon Dioxide BUN Glucose POC Glucose 111 H 126 H Magnesium AST ALT Alkaline Phosphatase Total Creatine Kinase 53 L NT-Pro-B Natriuret Pep Albumin Urine WBC (Auto) Crossmatch 11/19/18 11/19/18 11/20/18 11:37 23:43 06:52 WBC RBC Hgb Hct MCH MCHC RDW Plt Count Lymph % (Auto) Kern % (Auto) Eos % (Auto) Lymph # [place] # Eos # Seg Neutrophils % Seg Neutrophils # PT INR POC ABG pH POC ABG pCO2 POC ABG pO2 VBG pH Sodium Potassium Chloride Carbon Dioxide BUN Glucose POC Glucose 139 H 145 H 125 H Magnesium AST ALT Alkaline Phosphatase Total Creatine Kinase NT-Pro-B Natriuret Pep Albumin Urine WBC (Auto) Crossmatch 11/20/18 11/20/18 11/20/18 09:55 09:55 11:49 WBC RBC 3.04 L Hgb 8.4 L Hct 26.1 L MCH MCHC RDW 17.5 H Plt Count Lymph % (Auto) Kern % (Auto) Eos % (Auto) Lymph # [place] # Eos # Seg Neutrophils % Seg Neutrophils # PT INR POC ABG pH POC ABG pCO2 POC ABG pO2 VBG pH Sodium 149 H Potassium Chloride 114.5 H Carbon Dioxide 21 L BUN 35 H Glucose 127 H POC Glucose 150 H Magnesium AST ALT Alkaline Phosphatase Total Creatine Kinase NT-Pro-B Natriuret Pep Albumin Urine WBC (Auto) Crossmatch 11/20/18 11/20/18 11/21/18 18:02 23:49 06:14 WBC RBC Hgb Hct MCH MCHC RDW Plt Count Lymph % (Auto) Kern % (Auto) Eos % (Auto) Lymph # [place] # Eos # Seg Neutrophils % Seg Neutrophils # PT INR POC ABG pH POC ABG pCO2 POC ABG pO2 VBG pH Sodium Potassium Chloride Carbon Dioxide BUN Glucose POC Glucose 131 H 137 H 133 H Magnesium AST ALT Alkaline Phosphatase Total Creatine Kinase NT-Pro-B Natriuret Pep Albumin Urine WBC (Auto) Crossmatch Allied health notes reviewed: nursing
--- NOTE | 2018-11-21 08:35 | Progress Note ---
Assessment and Plan Assessment and plan: 67-year-old male with history of HTN, CVA, Obstructive Uropathy, Diastolic CHF, Contracture, Sacral Decubitus Ulcers, NE, DM, OA, Seizure Disorder, COPD, Dementia, BPH presents to ED for evaluation. Pt is stuporous and unable to provide history. Pt history taken from ED Staff, EMS, and SNF Staff. As per staff, the patient was found to have respiratory distress upon evaluation this morning. Pt found to have pulse oximetry in the 80's. EMS notified and patient subsequently transported to [facility] for further care and evaluation. Pt seen and evaluated in ED and found to have UTI, Sepsis, Encephalopathy as well as Acute Hypoxemic Respiratory Failure. Pt initiated on NIPPV in ED with improvement in symptoms. Pt initially admitted to [facility] now transferred to [facility]. Extensive discussion with family about patients poor prognosis surgery consulted for possible debridment ID following, Pulmonary status improved Continue isolation care, Chaudhary placed by Urology please do not remove Discharge pending on isolation room availability at the snf Paroxysmal SVTs -Cardiology was consulted during this admission -Patient was started on Coreg 6.25 and twice a day - Continue to monitor for now, we'll further follow up with cardiology if having SVTs more frequently - We'll monitor potassium, magnesium Sepsis with MRSA bacteremia, UTI, Infected decub ulcer POA, osteomyelitis poa - Patient had being multiple admission in the past including this one for similar situation - Previously discussed multiple time with family for hospice placement but they refused - Patient was previously discharged with vancomycin for MRSA bacteremia - He readmitted this time while he was on vancomycin and blood cultures still growing MRSA - Changed antibiotic to daptomycin per ID - at discharge will need daptomycin 400 mg IV q day for 6 weeks until 12/16/2018, Order placed with case management Sacral pressure ulcer -infected. POA Wound care nurse following. Debridement done by Dr Man Amputation recommended and the daughter refused Acute on chronic encephalopathy - Due to sepsis and underlying dementia - Continue to provide supportive care Acute hypoxemic Respiratory failure Likely from underlying CHF exacerbation and profound sepsis cont Supplemental oxygen, nebulizer therapy, mgt per pulmonology CHFeEF 30-35% with exacerbation, poa - Continue to monitor in's and O's, daily weight, aspirin and statin and beta chandan, patient is allergic to ACEI Anemia of chronic disease Transfused one unit PRBC hemoglobin is stable Hypernatremia. started on D5W on 7/3 Seizure Continue current therapy, seizure precautions. BPH status post TURP and obstructive uropathy Continue Chaudhary catherter placed by urology during this admission Chronic Dementia supportive care DVT prophylaxis Prophylactic lovenox POOR PROGNOSIS Disposition; Arranged family meeting on 11/14 with mattress spring encaser patient's daughters, granddaughter and ex- along with Dr. Wynne. Family still wants to continue the antibiotic treatment, but they mention if antibiotic treatment fails this time and patient continued to spike fever or remains bacteremic with daptomycin then they would possibly consider hospice. Family also considering for DO NOT RESUSCITATE and does not want any life support for the patient, but they did not signed the DNR form yet. Patient will be discharged back to the snf/[facility] as soon as isolation room is available. History Interval history: had debridement multiple decubitus ulcers again on 11/20 Hospitalist Physical - Physical exam Narrative exam: Gen: Not in acute distress. Vital signs as documented. Head exam is unremarkable. No scleral icterus . Neck is without jugular venous distension, thyromegaly, or carotid bruits. Lungs are clear to auscultation. Cardiac exam reveals regular rate and Rhythm. First and second heart sounds normal. No murmurs, rubs or gallops. Abdominal exam reveals normal bowel sounds, no masses, no organomegaly and no aortic enlargement. Extremities contracted extremities. CAREER INFORMATION SPECIALIST: Does not follow command, contracted extremities Skin; multiple decubitus ulcers, including the sacrum , lower extremities bilateral. - Constitutional Vitals: Temp Pulse Resp BP Pulse Ox 97.7 F 88 17 123/62 97 11/21/18 03:55 11/21/18 07:43 11/21/18 07:43 11/21/18 03:55 11/21/18 03:55 General appearance: Present: no acute distress Results - Labs CBC & Chem 7: 11/20/18 09:55 11/20/18 09:55 Labs: Laboratory Last Values WBC 8.9 K/mm3 (4.5-11.0) 11/20/18 09:55 RBC 3.04 M/mm3 (3.65-5.03) L 11/20/18 09:55 Hgb 8.4 gm/dl (11.8-15.2) L 11/20/18 09:55 Hct 26.1 % (35.5-45.6) L 11/20/18 09:55 MCV 86 fl (84-94) 11/20/18 09:55 MCH 28 pg (28-32) 11/20/18 09:55 MCHC 32 % (32-34) 11/20/18 09:55 RDW 17.5 % (13.2-15.2) H 11/20/18 09:55 Plt Count 410 K/mm3 (140-440) 11/20/18 09:55 Lymph % (Auto) 9.0 % (13.4-35.0) L 11/15/18 07:13 [place] % (Auto) 7.5 % (0.0-7.3) H 11/15/18 07:13 Eos % (Auto) 3.9 % (0.0-4.3) 11/15/18 07:13 Baso % (Auto) 0.8 % (0.0-1.8) 11/15/18 07:13 Lymph # 1.2 K/mm3 (1.2-5.4) 11/15/18 07:13 [place] # 1.0 K/mm3 (0.0-0.8) H 11/15/18 07:13 Eos # 0.5 K/mm3 (0.0-0.4) H 11/15/18 07:13 Baso # 0.1 K/mm3 (0.0-0.1) 11/15/18 07:13 Seg Neutrophils % 78.8 % (40.0-70.0) H 11/15/18 07:13 Seg Neutrophils # 10.4 K/mm3 (1.8-7.7) H 11/15/18 07:13 PT 16.3 Sec. (12.2-14.9) H 11/01/18 14:50 INR 1.35 (0.87-1.13) H 11/01/18 14:50 POC ABG pH 7.494 (7.35-7.45) H 11/01/18 15:27 POC ABG pCO2 34.5 (35-45) L 11/01/18 15:27 POC ABG pO2 139 (80-105) H 11/01/18 15:27 POC ABG HCO3 26.5 (22-26 mml/L) 11/01/18 15:27 POC ABG Total CO2 28 (23-27mmol/L) 11/01/18 15:27 POC ABG O2 Sat 99 11/01/18 15:27 POC ABG Base Excess 3 ((-2) - (+3)mmol/L) 11/01/18 15:27 VBG pH 7.499 (7.320-7.420) H 11/01/18 14:50 50 % 11/01/18 15:27 Sodium 149 mmol/L (137-145) H 11/20/18 09:55 Potassium 3.8 mmol/L (3.6-5.0) 11/20/18 09:55 Chloride 114.5 mmol/L (98-107) H 11/20/18 09:55 Carbon Dioxide 21 mmol/L (22-30) L 11/20/18 09:55 17 mmol/L 11/20/18 09:55 BUN 35 mg/dL (9-20) H 11/20/18 09:55 0.9 mg/dL (0.8-1.5) 11/20/18 09:55 Estimated GFR > 60 ml/min 11/20/18 09:55 39 % 11/20/18 09:55 Glucose 127 mg/dL (75-100) H 11/20/18 09:55 POC Glucose 133 (70-105) H 11/21/18 06:14 Lactic Acid 1.80 mmol/L (0.7-2.0) 11/01/18 14:50 Calcium 9.2 mg/dL (8.4-10.2) 11/20/18 09:55 Magnesium 2.60 mg/dL (1.7-2.3) H 11/16/18 01:15 0.30 mg/dL (0.1-1.2) 11/01/18 14:50 AST 90 units/L (5-40) H 11/01/18 14:50 ALT 77 units/L (7-56) H 11/01/18 14:50 350 units/L (35-129) H 11/01/18 14:50 53 units/L (55-170) L 11/19/18 05:35 NT-Pro-B Natriuret Pep 6776 pg/mL (0-900) H 11/01/18 14:50 7.9 g/dL (6.3-8.2) 11/01/18 14:50 1.6 g/dL (3.9-5) L 11/01/18 14:50 0.3 % 11/01/18 14:50 Yellow (Yellow) 11/01/18 15:57 Turbid (Clear) 11/01/18 15:57 6.0 (5.0-7.0) 11/01/18 15:57 Ur Specific [place] 1.016 (1.003-1.030) 11/01/18 15:57 100 mg/dl mg/dL (Negative) 11/01/18 15:57 Neg mg/dL (Negative) 11/01/18 15:57 Neg mg/dL (Negative) 11/01/18 15:57 Neg (Negative) 11/01/18 15:57 Neg (Negative) 11/01/18 15:57 Neg (Negative) 11/01/18 15:57 < 2.0 mg/dL (<2.0) 11/01/18 15:57 Ur Leukocyte Esterase Mod (Negative) 11/01/18 15:57 > 182.0 /HPF (0.0-6.0) H 11/01/18 15:57 40.0 /HPF (0.0-6.0) 11/01/18 15:57 U Epithel Cells (Auto) 8.0 /HPF (0-13.0) 11/01/18 15:57 3+ /HPF 11/01/18 15:57 3+ /HPF 11/01/18 15:57 Random Vancomycin 13.9 ug/mL (0-40.0) 11/02/18 05:05 Blood Type O POSITIVE 11/03/18 12:51 Antibody Screen Negative 11/03/18 12:51 Crossmatch See Detail 11/03/18 12:51 Active Medications - Current Medications Current Medications: Generic Name Dose Route Start Last Admin Trade Name Freq PRN Reason Stop Dose Admin Acetaminophen/Hydrocodone Bitart 1 each 11/15/18 04:51 11/16/18 18:50 [place] 5/325 PO 1 each Q4H PRN Administration Pain, Moderate (4-6) Albuterol 2.5 mg 11/01/18 17:15 Proventil IH Q3HRT PRN Shortness Of Breath Albuterol/Ipratropium 1 ampul 11/09/18 20:00 11/21/18 07:43 Duoneb *Not For Prn Use* IH 1 ampul BIDRT NORA Administration Lipase/Protease/Amylase 1 each 11/03/18 17:12 11/20/18 15:19 Pancrenomi Moore 10,500 Unit FEEDTUBE 1 each PRN PRN Administration For Clogged Feeding Tube Ascorbic Acid 500 mg 11/01/18 22:00 11/20/18 22:45 Vitamin C FEEDTUBE 500 mg BID NORA Administration Atorvastatin Calcium 40 mg 11/01/18 22:00 11/20/18 22:44 Lipitor FEEDTUBE 40 mg QHS NORA Administration Carvedilol 6.25 mg 11/08/18 13:00 11/20/18 22:45 Coreg PO 6.25 mg BID NORA Administration Clonidine HCl 0.2 mg 11/05/18 17:18 11/19/18 16:33 Catapres-Tts Patch TD 0.2 mg Tu NORA Administration Enoxaparin Sodium 40 mg 11/02/18 10:00 11/20/18 13:22 Lovenox SUB-Q 40 mg QDAY@1000 NORA Administration Daptomycin 400 mg/ Sodium 100 mls @ 200 mls/hr 11/09/18 21:00 11/20/18 21:00 Chloride IV 12/16/18 23:59 200 mls/hr Q24H NORA Administration Protocol Dextrose 1,000 mls @ 75 mls/hr 11/20/18 13:00 11/20/18 22:47 D5w IV 75 mls/hr DIRECT NORA Administration Levetiracetam 500 mg 11/01/18 22:00 11/20/18 22:44 Keppra FEEDTUBE 500 mg BID NORA Administration Morphine Sulfate 2 mg 11/01/18 17:15 11/20/18 22:43 Morphine IV 2 mg Q4H PRN Administration Pain, Moderate (4-6) Multivitamins 5 ml 11/02/18 10:00 11/20/18 13:17 Centrum Liq FEEDTUBE Not Given QDAY NORA Simple Syrup 15 ml 11/03/18 17:12 11/16/18 13:40 Simple Syrup FEEDTUBE 15 ml PRN PRN Administration Hypoglycemia Simple Syrup 30 ml 11/03/18 17:12 Simple Syrup FEEDTUBE PRN PRN Hypoglycemia Sodium Bicarbonate 325 mg 11/03/18 17:12 11/16/18 13:36 Sodium Bicarbonate FEEDTUBE 325 mg PRN PRN Administration For Clogged Feeding Tube Sodium Chloride 10 ml 11/01/18 22:00 11/20/18 22:46 Sodium Chloride Flush Syringe 10 Ml IV 10 ml BID NORA Administration Sodium Chloride 10 ml 11/01/18 17:15 Sodium Chloride Flush Syringe 10 Ml IV PRN PRN LINE FLUSH Sodium Hypochlorite 1 applic 11/08/18 11:00 11/20/18 22:48 Dakin's Half Strength TP 1 applicatio BID NORA Administration Zinc Sulfate 220 mg 11/02/18 10:00 11/20/18 15:27 Zinc Sulfate PO 220 mg DAILY NORA Administration Nutrition/Malnutrition Assess - Dietary Evaluation Nutrition/Malnutrition Findings: Nutrition Notes Start: 11/04/18 16:00 Freq: Status: Active Protocol: Document 11/18/18 16:37 RM (Rec: 11/18/18 16:40 RM [id number]) Nutrition Notes Initial or Follow up Reassessment Current Diagnosis COPD,Diabetes,Sepsis, Hypertension,Heart Failure, Stroke Other Pertinent Diagnosis Sacral PUs, UTI, Dementia Current Diet Nepro at 40 ml/hr Labs/Tests Na 144 K 4.2 Pertinent Medications Reviewed Height 5 ft 8 in Weight 61.1 kg [place] Body Weight (kg) 70.00 BMI 20.5 Subjective/Other Information Pt wounds being cleaned at time of visit. Nurse stated that pt is tolerating TF at goal rate. Percent of energy/protein needs met: 100%/100% Burn Absent Trauma Absent #1 Nutrition Diagnosis Inadequate oral intake Diagnosis Progress(for reassessment Continues documentation) Is patient on ventilator? No Is Patient Ambulatory and/or Out of Bed No REE-([facility]-confined to bed) 4130.061 Calculation Used for Recommendations [facility] Additional Notes Protein Needs: 76-95g (1.2-1. 5g/kg) Fluid Needs: 1 ml/kcal Nutrition Intervention Nutrition Support: Nepro 1.8 at 40 ml/hr. Water flush of 200 mls q 4 hrs . Kcal 1,728 Protein (gm) 78 Fluid (mL) 698 Goal #1 TF tolerance Goal #2 Continue to meet at least 75% of calorie and protein needs via TF Anticipated Discharge Needs: Unable to determine at this time Follow-Up By: 11/22/18 Additional Comments Follow for TF tolerance
[2018-11-21] MEDS: NORCO 5/325 PO PRN (09:26)
[2018-11-21] MEDS: KEPPRA FEEDTUBE SCH ×2 (09:26→22:24)
[2018-11-21] MEDS: COREG PO SCH ×2 (09:27→22:23)
[2018-11-21] MEDS: DAKIN'S HALF STRENGTH TP SCH ×2 (09:28→22:25)
[2018-11-21] MEDS: VITAMIN C FEEDTUBE SCH ×2 (09:28→22:24)
[2018-11-21] MEDS: SODIUM CHLORIDE FLUSH SYRINGE 10 ML IV SCH ×2 (09:29→22:24)
[2018-11-21] MEDS: LOVENOX SUB-Q SCH (09:29)
[2018-11-21] MEDS: Centrum Liq FEEDTUBE SCH (09:49)
[2018-11-21] MEDS: ZINC SULFATE PO SCH (09:50)
[2018-11-21 10:48] LABS: BUN/Creatinine Ratio 39; Blood Urea Nitrogen 31 mg/dL (9-20); Calcium 8.9 mg/dL (8.4-10.2); Hemolysis Index 0
[2018-11-21] MEDS: DAPTOMYCIN IV SCH (22:22)
[2018-11-21] MEDS: NACL 0.9% IV SCH (22:22)
[2018-11-22 07:08] LABS: BUN/Creatinine Ratio 46; Blood Urea Nitrogen 32 mg/dL (9-20); Calcium 8.9 mg/dL (8.4-10.2); Hemolysis Index 6
[2018-11-22] MEDS: DUONEB *Not for PRN Use IH SCH ×3 (07:43→20:22)
[2018-11-22] MEDS: D5W 1,000 ML IV SCH (08:36)
--- NOTE | 2018-11-22 09:05 | Event Note ---
Date: 11/22/18 Patient has 23 beats vtach. Will re-consult Cardiology.
--- NOTE | 2018-11-22 09:28 | Progress Note ---
Assessment and Plan NSVT on tele Recurrent episodes Severe sepsis Decubitus ulcer infections and recurrent bacteremia Infection deemed incurable and hospica was recommended Recurrent UTI Chronic respiratory failure Anemia Chronically elevated troponin Paroxysmal Afib previously considered not a candidate for oral anticoagulation LBBB, chronic Cardiomyopathy EF 30-35% DIANA-i allergy Recommend: Conservative medical therapy for cardiomyopathy and recurrent NSVT Continue carvedilol, lipitor and clonidine Keep K > 4 and Magnesium > 2 Patient is not a candidate for further cardiac testing or intervention Subjective Date of service: 11/22/18 Principal diagnosis: bacteremia, sepsis, acute encephalaopthy, hpoxia Interval history: Cardiology reconsulted because if 20 beats NSVT noted on tele Patient lying in bed, contracted and not able to answer questions appropriately Objective Vital Signs Temp Pulse Pulse Resp BP Pulse Ox 11/22/18 08:16 98.6 F 81 20 115/56 100 11/22/18 04:57 97.8 F 11/22/18 04:56 79 20 127/56 98 11/22/18 01:37 77 11/22/18 00:51 20 11/22/18 00:11 98.7 F 11/22/18 00:09 77 22 123/70 96 11/21/18 22:23 79 135/67 11/21/18 22:00 95 11/21/18 20:56 99.2 F 11/21/18 20:54 79 24 135/67 96 11/21/18 16:58 98.4 F 71 22 152/69 97 11/21/18 14:01 98.0 F 70 20 154/65 96 11/21/18 10:00 100 H 102 H 11/21/18 09:27 93 H - Physical Examination General: Cachectic HEENT: Positive: Pallor Cardiac: Positive: Reg Rate and Rhythm Lungs: Positive: Decreased Breath Sounds Neuro: Positive: Other (contracted) - Labs and Meds Comprehensive Metabolic Panel 11/21/18 11/22/18 Range/Units 10:00 05:47 Sodium 144 140 (137-145) mmol/L Potassium 3.8 4.1 (3.6-5.0) mmol/L Chloride 110.6 H 107.6 H (98-107) mmol/L Carbon Dioxide 23 22 (22-30) mmol/L BUN 31 H 32 H (9-20) mg/dL Creatinine 0.8 0.7 L (0.8-1.5) mg/dL Glucose 119 H 116 H (75-100) mg/dL Calcium 8.9 8.9 (8.4-10.2) mg/dL - Allied health notes Allied health notes reviewed: nursing
[2018-11-22] MEDS: KEPPRA FEEDTUBE SCH ×2 (09:46→21:32)
[2018-11-22] MEDS: ZINC SULFATE PO SCH (09:47)
[2018-11-22] MEDS: COREG PO SCH ×2 (09:47→21:33)
[2018-11-22] MEDS: VITAMIN C FEEDTUBE SCH ×2 (09:47→21:32)
[2018-11-22] MEDS: LOVENOX SUB-Q SCH (09:48)
[2018-11-22] MEDS: DAKIN'S HALF STRENGTH TP SCH ×2 (09:48→21:34)
[2018-11-22] MEDS: Centrum Liq FEEDTUBE SCH (09:48)
[2018-11-22] MEDS: SODIUM CHLORIDE FLUSH SYRINGE 10 ML IV SCH ×2 (09:49→21:34)
--- NOTE | 2018-11-22 10:46 | Progress Note ---
Assessment and Plan Assessment and plan: 67-year-old male with history of HTN, CVA, Obstructive Uropathy, Diastolic CHF, Contracture, Sacral Decubitus Ulcers, OH, DM, OA, Seizure Disorder, COPD, Dementia, BPH presents to ED for evaluation. Pt is stuporous and unable to provide history. Pt history taken from ED Staff, EMS, and SNF Staff. As per staff, the patient was found to have respiratory distress upon evaluation this morning. Pt found to have pulse oximetry in the 80's. EMS notified and patient subsequently transported to [facility] for further care and evaluation. Pt seen and evaluated in ED and found to have UTI, Sepsis, Encephalopathy as well as Acute Hypoxemic Respiratory Failure. Pt initiated on NIPPV in ED with improvement in symptoms. Pt initially admitted to [facility] now transferred to [facility]. Extensive discussion with family about patients poor prognosis surgery consulted for possible debridment ID following, Pulmonary status improved Continue isolation care, Chaudhary placed by Urology please do not remove Discharge pending on isolation room availability at the skilled nursing Paroxysmal SVTs -Cardiology was consulted during this admission -Patient was started on Coreg 6.25 and twice a day - Continue to monitor for now, we'll further follow up with cardiology if having SVTs more frequently - We'll monitor potassium, magnesium Sepsis with MRSA bacteremia, UTI, Infected decub ulcer POA, osteomyelitis poa - Patient had being multiple admission in the past including this one for similar situation - Previously discussed multiple time with family for hospice placement but they refused - Patient was previously discharged with vancomycin for MRSA bacteremia - He readmitted this time while he was on vancomycin and blood cultures still growing MRSA - Changed antibiotic to daptomycin per ID - at discharge will need daptomycin 400 mg IV q day for 6 weeks until 12/16/2018, Order placed with case management Sacral pressure ulcer -infected. POA Wound care nurse following. Debridement done by Dr Man Amputation recommended and the daughter refused Acute on chronic encephalopathy - Due to sepsis and underlying dementia - Continue to provide supportive care Acute hypoxemic Respiratory failure Likely from underlying CHF exacerbation and profound sepsis cont Supplemental oxygen, nebulizer therapy, mgt per pulmonology CHFeEF 30-35% with exacerbation, poa - Continue to monitor in's and O's, daily weight, aspirin and statin and beta chandan, patient is allergic to ACEI Anemia of chronic disease Transfused one unit PRBC hemoglobin is stable Hypernatremia. started on D5W on 7/3 Seizure Continue current therapy, seizure precautions. BPH status post TURP and obstructive uropathy Continue Chaudhary catherter placed by urology during this admission Chronic Dementia supportive care DVT prophylaxis Prophylactic lovenox POOR PROGNOSIS Disposition; Arranged family meeting on 11/14 with behavioral health case manager patient's daughters, granddaughter and ex- along with Dr. Wynne. Family still wants to continue the antibiotic treatment, but they mention if antibiotic treatment fails this time and patient continued to spike fever or remains bacteremic with daptomycin then they would possibly consider hospice. Family also considering for DO NOT RESUSCITATE and does not want any life support for the patient, but they did not signed the DNR form yet. Patient will be discharged back to the skilled nursing/[facility] as soon as isolation room is available. History Interval history: had debridement multiple decubitus ulcers again on 11/20 21 beats vtach this morning Hospitalist Physical - Physical exam Narrative exam: Gen: Not in acute distress. lying in bed Head exam is unremarkable. No scleral icterus . Neck is without jugular venous distension, thyromegaly, or carotid bruits. Lungs are clear to auscultation. Cardiac exam reveals regular rate and Rhythm. First and second heart sounds normal. No murmurs, rubs or gallops. Abdominal exam reveals non tender, not distended,normal bowel sounds, no masses, Extremities contracted extremities. 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 - Constitutional Vitals: Temp Pulse Resp BP Pulse Ox 98.6 F 81 20 115/56 100 11/22/18 08:16 11/22/18 09:47 11/22/18 08:16 11/22/18 09:47 11/22/18 08:16 General appearance: Present: no acute distress Results - Labs CBC & Chem 7: 11/20/18 09:55 11/22/18 05:47 Labs: Laboratory Last Values WBC 8.9 K/mm3 (4.5-11.0) 11/20/18 09:55 RBC 3.04 M/mm3 (3.65-5.03) L 11/20/18 09:55 Hgb 8.4 gm/dl (11.8-15.2) L 11/20/18 09:55 Hct 26.1 % (35.5-45.6) L 11/20/18 09:55 MCV 86 fl (84-94) 11/20/18 09:55 MCH 28 pg (28-32) 11/20/18 09:55 MCHC 32 % (32-34) 11/20/18 09:55 RDW 17.5 % (13.2-15.2) H 11/20/18 09:55 Plt Count 410 K/mm3 (140-440) 11/20/18 09:55 Lymph % (Auto) 9.0 % (13.4-35.0) L 11/15/18 07:13 Cocke % (Auto) 7.5 % (0.0-7.3) H 11/15/18 07:13 Eos % (Auto) 3.9 % (0.0-4.3) 11/15/18 07:13 Baso % (Auto) 0.8 % (0.0-1.8) 11/15/18 07:13 Lymph # 1.2 K/mm3 (1.2-5.4) 11/15/18 07:13 Cocke # 1.0 K/mm3 (0.0-0.8) H 11/15/18 07:13 Eos # 0.5 K/mm3 (0.0-0.4) H 11/15/18 07:13 Baso # 0.1 K/mm3 (0.0-0.1) 11/15/18 07:13 Seg Neutrophils % 78.8 % (40.0-70.0) H 11/15/18 07:13 Seg Neutrophils # 10.4 K/mm3 (1.8-7.7) H 11/15/18 07:13 PT 16.3 Sec. (12.2-14.9) H 11/01/18 14:50 INR 1.35 (0.87-1.13) H 11/01/18 14:50 POC ABG pH 7.494 (7.35-7.45) H 11/01/18 15:27 POC ABG pCO2 34.5 (35-45) L 11/01/18 15:27 POC ABG pO2 139 (80-105) H 11/01/18 15:27 POC ABG HCO3 26.5 (22-26 mml/L) 11/01/18 15:27 POC ABG Total CO2 28 (23-27mmol/L) 11/01/18 15:27 POC ABG O2 Sat 99 11/01/18 15:27 POC ABG Base Excess 3 ((-2) - (+3)mmol/L) 11/01/18 15:27 VBG pH 7.499 (7.320-7.420) H 11/01/18 14:50 50 % 11/01/18 15:27 Sodium 140 mmol/L (137-145) 11/22/18 05:47 Potassium 4.1 mmol/L (3.6-5.0) 11/22/18 05:47 Chloride 107.6 mmol/L (98-107) H 11/22/18 05:47 Carbon Dioxide 22 mmol/L (22-30) 11/22/18 05:47 15 mmol/L 11/22/18 05:47 BUN 32 mg/dL (9-20) H 11/22/18 05:47 0.7 mg/dL (0.8-1.5) L 11/22/18 05:47 Estimated GFR > 60 ml/min 11/22/18 05:47 46 % 11/22/18 05:47 Glucose 116 mg/dL (75-100) H 11/22/18 05:47 POC Glucose 150 (70-105) H 11/22/18 08:40 Lactic Acid 1.80 mmol/L (0.7-2.0) 11/01/18 14:50 Calcium 8.9 mg/dL (8.4-10.2) 11/22/18 05:47 Magnesium 2.60 mg/dL (1.7-2.3) H 11/16/18 01:15 0.30 mg/dL (0.1-1.2) 11/01/18 14:50 AST 90 units/L (5-40) H 11/01/18 14:50 ALT 77 units/L (7-56) H 11/01/18 14:50 350 units/L (35-129) H 11/01/18 14:50 53 units/L (55-170) L 11/19/18 05:35 NT-Pro-B Natriuret Pep 6776 pg/mL (0-900) H 11/01/18 14:50 7.9 g/dL (6.3-8.2) 11/01/18 14:50 1.6 g/dL (3.9-5) L 11/01/18 14:50 0.3 % 11/01/18 14:50 Yellow (Yellow) 11/01/18 15:57 Turbid (Clear) 11/01/18 15:57 6.0 (5.0-7.0) 11/01/18 15:57 Ur Specific [place] 1.016 (1.003-1.030) 11/01/18 15:57 100 mg/dl mg/dL (Negative) 11/01/18 15:57 Neg mg/dL (Negative) 11/01/18 15:57 Neg mg/dL (Negative) 11/01/18 15:57 Neg (Negative) 11/01/18 15:57 Neg (Negative) 11/01/18 15:57 Neg (Negative) 11/01/18 15:57 < 2.0 mg/dL (<2.0) 11/01/18 15:57 Ur Leukocyte Esterase Mod (Negative) 11/01/18 15:57 > 182.0 /HPF (0.0-6.0) H 11/01/18 15:57 40.0 /HPF (0.0-6.0) 11/01/18 15:57 U Epithel Cells (Auto) 8.0 /HPF (0-13.0) 11/01/18 15:57 3+ /HPF 11/01/18 15:57 3+ /HPF 11/01/18 15:57 Random Vancomycin 13.9 ug/mL (0-40.0) 11/02/18 05:05 Blood Type O POSITIVE 11/03/18 12:51 Antibody Screen Negative 11/03/18 12:51 Crossmatch See Detail 11/03/18 12:51 Active Medications - Current Medications Current Medications: Generic Name Dose Route Start Last Admin Trade Name Freq PRN Reason Stop Dose Admin Acetaminophen/Hydrocodone Bitart 1 each 11/15/18 04:51 11/21/18 09:26 Oklee 5/325 PO 1 each Q4H PRN Administration Pain, Moderate (4-6) Albuterol 2.5 mg 11/01/18 17:15 Proventil IH Q3HRT PRN Shortness Of Breath Albuterol/Ipratropium 1 ampul 11/09/18 20:00 11/22/18 09:32 Duoneb *Not For Prn Use* IH Not Given BIDRT NORA Lipase/Protease/Amylase 1 each 11/03/18 17:12 11/20/18 15:19 Pancrenomi Moore 10,500 Unit FEEDTUBE 1 each PRN PRN Administration For Clogged Feeding Tube Ascorbic Acid 500 mg 11/01/18 22:00 11/22/18 09:47 Vitamin C FEEDTUBE 500 mg BID NORA Administration Atorvastatin Calcium 40 mg 11/01/18 22:00 11/21/18 22:23 Lipitor FEEDTUBE 40 mg QHS NORA Administration Carvedilol 6.25 mg 11/08/18 13:00 11/22/18 09:47 Coreg PO 6.25 mg BID NORA Administration Clonidine HCl 0.2 mg 11/05/18 17:18 11/19/18 16:33 Catapres-Tts Patch TD 0.2 mg Tu NORA Administration Enoxaparin Sodium 40 mg 11/02/18 10:00 11/22/18 09:48 Lovenox SUB-Q 40 mg QDAY@1000 NORA Administration Daptomycin 400 mg/ Sodium 100 mls @ 200 mls/hr 11/09/18 21:00 11/21/18 22:22 Chloride IV 12/16/18 23:59 200 mls/hr Q24H NORA Administration Protocol Dextrose 1,000 mls @ 75 mls/hr 11/20/18 13:00 11/22/18 08:36 D5w IV 75 mls/hr DIRECT NORA Administration Levetiracetam 500 mg 11/01/18 22:00 11/22/18 09:46 Keppra FEEDTUBE 500 mg BID NORA Administration Morphine Sulfate 2 mg 11/01/18 17:15 11/20/18 22:43 Morphine IV 2 mg Q4H PRN Administration Pain, Moderate (4-6) Multivitamins 5 ml 11/02/18 10:00 11/22/18 09:48 Centrum Liq FEEDTUBE 5 ml QDAY NORA Administration Simple Syrup 15 ml 11/03/18 17:12 11/16/18 13:40 Simple Syrup FEEDTUBE 15 ml PRN PRN Administration Hypoglycemia Simple Syrup 30 ml 11/03/18 17:12 Simple Syrup FEEDTUBE PRN PRN Hypoglycemia Sodium Bicarbonate 325 mg 11/03/18 17:12 11/16/18 13:36 Sodium Bicarbonate FEEDTUBE 325 mg PRN PRN Administration For Clogged Feeding Tube Sodium Chloride 10 ml 11/01/18 22:00 11/22/18 09:49 Sodium Chloride Flush Syringe 10 Ml IV 10 ml BID NORA Administration Sodium Chloride 10 ml 11/01/18 17:15 Sodium Chloride Flush Syringe 10 Ml IV PRN PRN LINE FLUSH Sodium Hypochlorite 1 applic 11/08/18 11:00 11/22/18 09:48 Dakin's Half Strength TP 1 applicatio BID NORA Administration Zinc Sulfate 220 mg 11/02/18 10:00 11/22/18 09:47 Zinc Sulfate PO 220 mg DAILY NORA Administration Nutrition/Malnutrition Assess - Dietary Evaluation Nutrition/Malnutrition Findings: Nutrition Notes Start: 11/04/18 16:00 Freq: Status: Active Protocol: Document 11/18/18 16:37 RM (Rec: 11/18/18 16:40 RM [id number]) Nutrition Notes Initial or Follow up Reassessment Current Diagnosis COPD,Diabetes,Sepsis, Hypertension,Heart Failure, Stroke Other Pertinent Diagnosis Sacral PUs, UTI, Dementia Current Diet Nepro at 40 ml/hr Labs/Tests Na 144 K 4.2 Pertinent Medications Reviewed Height 5 ft 8 in Weight 61.1 kg [place] Body Weight (kg) 70.00 BMI 20.5 Subjective/Other Information Pt wounds being cleaned at time of visit. Nurse stated that pt is tolerating TF at goal rate. Percent of energy/protein needs met: 100%/100% Burn Absent Trauma Absent #1 Nutrition Diagnosis Inadequate oral intake Diagnosis Progress(for reassessment Continues documentation) Is patient on ventilator? No Is Patient Ambulatory and/or Out of Bed No REE-([facility]-confined to bed) 8028.994 Calculation Used for Recommendations [facility] Additional Notes Protein Needs: 76-95g (1.2-1. 5g/kg) Fluid Needs: 1 ml/kcal Nutrition Intervention Nutrition Support: Nepro 1.8 at 40 ml/hr. Water flush of 200 mls q 4 hrs . Kcal 1,728 Protein (gm) 78 Fluid (mL) 698 Goal #1 TF tolerance Goal #2 Continue to meet at least 75% of calorie and protein needs via TF Anticipated Discharge Needs: Unable to determine at this time Follow-Up By: 11/22/18 Additional Comments Follow for TF tolerance
--- NOTE | 2018-11-22 11:05 | Progress Note ---
Assessment and Plan Cultures: Blood culture 10/01/2018 MRSA 2 of 4. Blood culture 10/03/2018 MRSA Blood culture 10/08/2018 no growth Blood culture 10/11/2018 no growth Blood culture 10/21/2018 no growth Blood culture 11/01/2018 Staph haemolyticus 2 of 4 bottles, resistent to methicillin and MRSA 1 of 4 bottles Blood culture 11/04/2018 no growth Assessment: 67 y/o male with history of HTN, CVA, Obstructive Uropathy, Contracture, Multiple Decubitus Ulcers, ME, DM, OA, Seizure Disorder, COPD, Dementia, Debility, BPH, well known to ID due to multiple admissions secondary to ducubitus ulcers infections and recurrent bacteremia, last time admitted on 10/02/2018 found with MRSA bacteremia jessica from decubitus ulcers mainly active large left trochanteric with bone exposure and sacral with bone exposure. Patient's infection was deemed incurable and hospice was recommended. Patient was discharged back to [place] on IV vancomycin 1 gm every 48 hours for total 6 weeks ending 11/12/2018 via neck tunneled cath. Patient was readmitted on due to AMS, worsening SOB. Patient is lethargic and unable to provide history. At the [facility] he was found to have respiratory distress upon evaluation the morning of admission,pulse oximetry in the 80's: 1) Severe Sepsis: Improved. Etiology most likely Recurrent Staph bacteremia +/- CAUTI. 2) Staph haemolyticus and MRSA bacteremia with recent MRSA bacteremia: Blood culture 11/01/2018 Staph haemolyticus 2 of 4 bottles and MRSA 1 of 4. Source likely multiple decubitus ulcers or Neck IV central line. Patient is failing vancomycin. He has a tunneled neck cath. Recent TTE negative for vegetations. On daptomycin. 3) Recent septic shock due to polymicrobial bacteremia ESBL and carbapenem resistant E coli, MDR Proteus, Strep and E faecalis on 07/29/2018 probably from multiple infected decubitus ulcers and less likely UTI. Repeat blood cultures 07/31/2018 showed same MDR E coli 1 of 4 bottles then 08/06/2018 blood cultures showed no growth. Patient was treated with Vabomere for 14 days. 4) Multiple infected decubitus ulcers: His prognosis has been poor and hospice has been recommended several times in the past but family has declined. declined. His wounds are not curable considering his contractures, bed bound status and poor nutritional status. There was also suspicion of septic arthritis of left hip from decubitus ulcer. S/p debridement of multiple pressure ulcerations on 11/07/2018- stage 4 left hip pressure ulceration was surgically excisionally debrided of necrotic bone, stage 3 sacral, right ankle and left heel pressure ulcers were then surgically, excisionally debrided of necrotic SQ fat, stage 4 right heel, left lateral heel and right lateral leg ulcerations were surgically, excisionally debrided of necrotic SQ tissue, muscle and fascia.. s/p debridement 11/13/18 of multiple stage 3/4 pressure u lcers sacrum, right lateral leg, right lateral ankle, left heel, left hip and right heel Dr Man recommended bilateral AKA, patient and daughter refused. Dr Man recommended Orthopedic consultation for possible left hip disarticulation as his left hip joint is crumbling and has profuse purulent drainage. s/p Debridement of multiple decubitus ulcers 11/19/18 . 5) Recurrent UTI: patient's bright was removed home 2 weeks ago, a new bright placed here 6) Acute encephalopathy: multifactorial. 7) Acute resp failure: was on BIPAP now NC O2. EF 30-35% pericaldial and pleural effusion. Recommendations: - continue Daptomycin IV for now D15 - always contact isolation - at discharge will do daptomycin 400 mg IV q day for 6 weeks until 12/16/2018, Order placed with case management Extremely poor prognosis Dr. Wynne is pets and pet supplies salesperson this weekend [phone], please call for questions. Dr. Dillon will round on Sunday. Jacquie Jean Baptiste NP [facility] M: [id number] O:[phone] Subjective Date of service: 11/22/18 Principal diagnosis: bacteremia, sepsis, acute encephalaopthy, hpoxia Interval history: Patient seen and examined. Awake. Alert. Continues to verbalize bilateral hip and buttock pain. No fevers. Objective - Exam Narrative Exam: General appearance: Awake. Reports acute pain. Eyes: anicteric sclerae, moist conjunctivae; no lid-lag; PERRLA HENT: Atraumatic; oropharynx limited Neck: Trachea midline; supple, no thyromegaly or lymphadenopathy Lungs: CTA CV: RRR no murmur Abdomen: Soft, non-tender Extremities: marked legs contractions, multiple decubitus ulcers covered with dressings Skin: multiple skin tears Psych: Calm Neuro: alert - Constitutional Vitals: Vital Signs Temp Pulse Resp BP Pulse Ox 98.6 F 81 20 115/56 100 11/22/18 08:16 11/22/18 09:47 11/22/18 08:16 11/22/18 09:47 11/22/18 08:16 Temperature -Last 24 Hours Temperature 98.6 F Temperature 97.8 F Temperature 98.7 F Temperature 99.2 F Temperature 98.4 F Temperature 98.0 F - Labs CBC & Chem 7: 11/20/18 09:55 11/22/18 05:47 Labs: Abnormal lab results 11/21/18 11/21/18 11/22/18 Range/Units 12:09 18:04 00:14 Chloride (98-107) mmol/L BUN (9-20) mg/dL Creatinine (0.8-1.5) mg/dL Glucose (75-100) mg/dL POC Glucose 116 H 126 H 122 H (70-105) 11/22/18 11/22/18 11/22/18 Range/Units 05:47 06:23 08:40 Chloride 107.6 H (98-107) mmol/L BUN 32 H (9-20) mg/dL Creatinine 0.7 L (0.8-1.5) mg/dL Glucose 116 H (75-100) mg/dL POC Glucose 119 H 150 H (70-105)
[2018-11-22] MEDS ORDERED: MAGNESIUM SULFATE 2GM/50ML 2 GM/50 ML BAG IV ONE (14:10)
[2018-11-22] MEDS: MORPHINE IV PRN (14:58)
[2018-11-22] MEDS: DAPTOMYCIN IV SCH (21:32)
[2018-11-22] MEDS: NACL 0.9% IV SCH (21:32)
[2018-11-22] MEDS: NORCO 5/325 PO PRN (21:33)
[2018-11-23] MEDS: MORPHINE IV PRN (04:00)
[2018-11-23 06:24] LABS: BUN/Creatinine Ratio 43; Blood Urea Nitrogen 30 mg/dL (9-20); Hemolysis Index 0
[2018-11-23] MEDS: DUONEB *Not for PRN Use IH SCH ×2 (08:13→21:12)
[2018-11-23] MEDS: ZINC SULFATE PO SCH (09:59)
[2018-11-23] MEDS: COREG PO SCH ×2 (09:59→21:31)
[2018-11-23] MEDS: Centrum Liq FEEDTUBE SCH (09:59)
[2018-11-23] MEDS: LOVENOX SUB-Q SCH (09:59)
[2018-11-23] MEDS: VITAMIN C FEEDTUBE SCH ×2 (09:59→21:31)
[2018-11-23] MEDS: KEPPRA FEEDTUBE SCH ×2 (09:59→21:31)
[2018-11-23] MEDS: SODIUM CHLORIDE FLUSH SYRINGE 10 ML IV SCH ×2 (10:00→21:32)
[2018-11-23] MEDS: DAKIN'S HALF STRENGTH TP SCH ×2 (10:00→21:56)
--- NOTE | 2018-11-23 10:36 | Progress Note ---
Assessment and Plan 1. Chronic combined systolic and diastolic heart failure 2. Nonsustained ventricular tachycardia 3. Paroxysmal atrial fibrillation 4. COPD 5. Decubitus ulcer 6. Persistent sepsis 7. Dementia/metabolic and careful opacity Plan Continue present cardiac management. Correctly collect up monitor this patient not a candidate for further cardiac testing or intervention Subjective Date of service: 11/23/18 Principal diagnosis: bacteremia, sepsis, acute encephalaopthy, hpoxia Interval history: No change in mental status Objective Vital Signs Temp Pulse Pulse Pulse Resp Resp BP 11/23/18 09:31 98.9 F 83 18 117/63 11/23/18 08:23 80 18 11/23/18 08:13 78 18 11/23/18 05:35 98.5 F 11/23/18 05:32 76 20 134/68 11/23/18 00:47 74 76 22 11/23/18 00:35 98.4 F 11/23/18 00:31 74 20 124/62 11/22/18 21:33 68 20 135/70 11/22/18 20:36 68 15 11/22/18 20:35 11/22/18 20:25 99.5 F 11/22/18 20:24 65 17 11/22/18 20:23 88 20 135/70 11/22/18 16:11 98.9 F 75 20 141/68 11/22/18 16:00 78 11/22/18 14:56 84 11/22/18 12:14 98.6 F 75 20 116/60 11/22/18 12:05 69 Pulse Ox 11/23/18 09:31 99 11/23/18 08:23 11/23/18 08:13 98 11/23/18 05:35 11/23/18 05:32 97 11/23/18 00:47 95 11/23/18 00:35 11/23/18 00:31 95 11/22/18 21:33 11/22/18 20:36 11/22/18 20:35 99 11/22/18 20:25 11/22/18 20:24 11/22/18 20:23 96 11/22/18 16:11 100 11/22/18 16:00 11/22/18 14:56 99 11/22/18 12:14 100 11/22/18 12:05 - Physical Examination General: Cachectic HEENT: Positive: Pallor Neck: Positive: neck supple. Negative: JVD/HJR Cardiac: Positive: S1/S2, S3, PMI, Laterally Displaced Lungs: Positive: clear to auscultation, No Wheeze, Rales, Rhonchi Neuro: Positive: Other (contracted) Abdomen: Positive: Unremarkable, Active Bowel Sounds Extremities: Absent: edema - Labs and Meds Comprehensive Metabolic Panel 11/23/18 Range/Units 05:56 Sodium 136 L (137-145) mmol/L Potassium 3.9 (3.6-5.0) mmol/L Chloride 104.5 (98-107) mmol/L Carbon Dioxide 23 (22-30) mmol/L BUN 30 H (9-20) mg/dL Creatinine 0.7 L (0.8-1.5) mg/dL Glucose 103 H (75-100) mg/dL Calcium 9.0 (8.4-10.2) mg/dL - Allied health notes Allied health notes reviewed: nursing
--- NOTE | 2018-11-23 11:29 | Progress Note ---
Assessment and Plan Assessment and plan: 67-year-old male with history of HTN, CVA, Obstructive Uropathy, Diastolic CHF, Contracture, Sacral Decubitus Ulcers, [place], DM, OA, Seizure Disorder, COPD, Dementia, BPH presents to ED for evaluation. Pt is stuporous and unable to provide history. Pt history taken from ED Staff, EMS, and SNF Staff. As per staff, the patient was found to have respiratory distress upon evaluation this morning. Pt found to have pulse oximetry in the 80's. EMS notified and patient subsequently transported to [facility] for further care and evaluation. Pt seen and evaluated in ED and found to have UTI, Sepsis, Encephalopathy as well as Acute Hypoxemic Respiratory Failure. Pt initiated on NIPPV in ED with improvement in symptoms. Pt initially admitted to [facility] now transferred to [facility]. Extensive discussion with family about patients poor prognosis surgery consulted for possible debridment ID following, Pulmonary status improved Continue isolation care, Chaudhary placed by Urology please do not remove Discharge pending [facility] Paroxysmal SVTs -Cardiology was consulted during this admission -Patient was started on Coreg 6.25 and twice a day - We'll monitor potassium, magnesium NSVT 21 beats vtach 11/22 Cardiology reconsulted Sepsis with MRSA bacteremia, UTI, Infected decub ulcer POA, osteomyelitis poa - Patient had being multiple admission in the past including this one for similar situation - Previously discussed multiple time with family for hospice placement but they refused - Patient was previously discharged with vancomycin for MRSA bacteremia - He readmitted this time while he was on vancomycin and blood cultures still growing MRSA - Changed antibiotic to daptomycin per ID - at discharge will need daptomycin 400 mg IV q day for 6 weeks until 12/16/2018, Order placed with case management Sacral pressure ulcer -infected. POA Wound care nurse following. Debridement done by Dr Man Amputation recommended and the daughter refused Acute on chronic encephalopathy - Due to sepsis and underlying dementia - Continue to provide supportive care Acute hypoxemic Respiratory failure Likely from underlying CHF exacerbation and profound sepsis cont Supplemental oxygen, nebulizer therapy, mgt per pulmonology CHFeEF 30-35% with exacerbation, poa - Continue to monitor in's and O's, daily weight, aspirin and statin and beta chandan, patient is allergic to ACEI Anemia of chronic disease Transfused one unit PRBC hemoglobin is stable Hypernatremia. started on D5W on 11/20 Seizure Continue current therapy, seizure precautions. BPH status post TURP and obstructive uropathy Continue Chaudhary catherter placed by urology during this admission Chronic Dementia supportive care DVT prophylaxis Prophylactic lovenox POOR PROGNOSIS Disposition; Arranged family meeting on 11/14 with cyanide case hardener patient's daughters, granddaughter and ex- along with Dr. Wynne. Family still wants to continue the antibiotic treatment, but they mention if antibiotic treatment fails this time and patient continued to spike fever or remains bacteremic with daptomycin then they would possibly consider hospice. Family also considering for DO NOT RESUSCITATE and does not want any life support for the patient, but they did not signed the DNR form yet. [facility] soon as isolation room is available. History Interval history: had debridement multiple decubitus ulcers again on 11/20 21 beats vtach morning of 11/22 Hospitalist Physical - Physical exam Narrative exam: Gen: Not in acute distress. lying in bed Head exam is unremarkable. No scleral icterus . Neck is without jugular venous distension, thyromegaly, or carotid bruits. Lungs are clear to auscultation. Cardiac exam reveals regular rate and Rhythm. First and second heart sounds normal. No murmurs, rubs or gallops. Abdominal exam reveals non tender, not distended,normal bowel sounds, no masses, Extremities contracted extremities. OPERATIONS ADVISOR: Awake,alert, contracted extremities Skin; multiple decubitus ulcers, including the sacrum , lower extremities bilateral. - Constitutional Vitals: Temp Pulse Resp BP Pulse Ox 98.9 F 79 18 117/63 96 11/23/18 09:31 11/23/18 10:00 11/23/18 10:00 11/23/18 09:31 11/23/18 10:00 General appearance: Present: no acute distress Results - Labs CBC & Chem 7: 11/20/18 09:55 11/23/18 05:56 Labs: Laboratory Last Values WBC 8.9 K/mm3 (4.5-11.0) 11/20/18 09:55 RBC 3.04 M/mm3 (3.65-5.03) L 11/20/18 09:55 Hgb 8.4 gm/dl (11.8-15.2) L 11/20/18 09:55 Hct 26.1 % (35.5-45.6) L 11/20/18 09:55 MCV 86 fl (84-94) 11/20/18 09:55 MCH 28 pg (28-32) 11/20/18 09:55 MCHC 32 % (32-34) 11/20/18 09:55 RDW 17.5 % (13.2-15.2) H 11/20/18 09:55 Plt Count 410 K/mm3 (140-440) 11/20/18 09:55 Lymph % (Auto) 9.0 % (13.4-35.0) L 11/15/18 07:13 [place] % (Auto) 7.5 % (0.0-7.3) H 11/15/18 07:13 Eos % (Auto) 3.9 % (0.0-4.3) 11/15/18 07:13 Baso % (Auto) 0.8 % (0.0-1.8) 11/15/18 07:13 Lymph # 1.2 K/mm3 (1.2-5.4) 11/15/18 07:13 [place] # 1.0 K/mm3 (0.0-0.8) H 11/15/18 07:13 Eos # 0.5 K/mm3 (0.0-0.4) H 11/15/18 07:13 Baso # 0.1 K/mm3 (0.0-0.1) 11/15/18 07:13 Seg Neutrophils % 78.8 % (40.0-70.0) H 11/15/18 07:13 Seg Neutrophils # 10.4 K/mm3 (1.8-7.7) H 11/15/18 07:13 PT 16.3 Sec. (12.2-14.9) H 11/01/18 14:50 INR 1.35 (0.87-1.13) H 11/01/18 14:50 POC ABG pH 7.494 (7.35-7.45) H 11/01/18 15:27 POC ABG pCO2 34.5 (35-45) L 11/01/18 15:27 POC ABG pO2 139 (80-105) H 11/01/18 15:27 POC ABG HCO3 26.5 (22-26 mml/L) 11/01/18 15:27 POC ABG Total CO2 28 (23-27mmol/L) 11/01/18 15:27 POC ABG O2 Sat 99 11/01/18 15:27 POC ABG Base Excess 3 ((-2) - (+3)mmol/L) 11/01/18 15:27 VBG pH 7.499 (7.320-7.420) H 11/01/18 14:50 50 % 11/01/18 15:27 Sodium 136 mmol/L (137-145) L 11/23/18 05:56 Potassium 3.9 mmol/L (3.6-5.0) 11/23/18 05:56 Chloride 104.5 mmol/L (98-107) 11/23/18 05:56 Carbon Dioxide 23 mmol/L (22-30) 11/23/18 05:56 12 mmol/L 11/23/18 05:56 BUN 30 mg/dL (9-20) H 11/23/18 05:56 0.7 mg/dL (0.8-1.5) L 11/23/18 05:56 Estimated GFR > 60 ml/min 11/23/18 05:56 43 % 11/23/18 05:56 Glucose 103 mg/dL (75-100) H 11/23/18 05:56 POC Glucose 122 (70-105) H 11/23/18 05:37 Lactic Acid 1.80 mmol/L (0.7-2.0) 11/01/18 14:50 Calcium 9.0 mg/dL (8.4-10.2) 11/23/18 05:56 Phosphorus 2.90 mg/dL (2.5-4.5) 11/22/18 09:43 Magnesium 2.50 mg/dL (1.7-2.3) H 11/23/18 05:56 0.30 mg/dL (0.1-1.2) 11/01/18 14:50 AST 90 units/L (5-40) H 11/01/18 14:50 ALT 77 units/L (7-56) H 11/01/18 14:50 350 units/L (35-129) H 11/01/18 14:50 53 units/L (55-170) L 11/19/18 05:35 NT-Pro-B Natriuret Pep 6776 pg/mL (0-900) H 11/01/18 14:50 7.9 g/dL (6.3-8.2) 11/01/18 14:50 1.6 g/dL (3.9-5) L 11/01/18 14:50 0.3 % 11/01/18 14:50 Yellow (Yellow) 11/01/18 15:57 Turbid (Clear) 11/01/18 15:57 6.0 (5.0-7.0) 11/01/18 15:57 Ur Specific [place] 1.016 (1.003-1.030) 11/01/18 15:57 100 mg/dl mg/dL (Negative) 11/01/18 15:57 Neg mg/dL (Negative) 11/01/18 15:57 Neg mg/dL (Negative) 11/01/18 15:57 Neg (Negative) 11/01/18 15:57 Neg (Negative) 11/01/18 15:57 Neg (Negative) 11/01/18 15:57 < 2.0 mg/dL (<2.0) 11/01/18 15:57 Ur Leukocyte Esterase Mod (Negative) 11/01/18 15:57 > 182.0 /HPF (0.0-6.0) H 11/01/18 15:57 40.0 /HPF (0.0-6.0) 11/01/18 15:57 U Epithel Cells (Auto) 8.0 /HPF (0-13.0) 11/01/18 15:57 3+ /HPF 11/01/18 15:57 3+ /HPF 11/01/18 15:57 Random Vancomycin 13.9 ug/mL (0-40.0) 11/02/18 05:05 Blood Type O POSITIVE 11/03/18 12:51 Antibody Screen Negative 11/03/18 12:51 Crossmatch See Detail 11/03/18 12:51 Active Medications - Current Medications Current Medications: Generic Name Dose Route Start Last Admin Trade Name Freq PRN Reason Stop Dose Admin Acetaminophen/Hydrocodone Bitart 1 each 11/15/18 04:51 11/22/18 21:33 Revelo 5/325 PO 1 each Q4H PRN Administration Pain, Moderate (4-6) Albuterol 2.5 mg 11/01/18 17:15 Proventil IH Q3HRT PRN Shortness Of Breath Albuterol/Ipratropium 1 ampul 11/09/18 20:00 11/23/18 08:13 Duoneb *Not For Prn Use* IH 1 ampul BIDRT NORA Administration Lipase/Protease/Amylase 1 each 11/03/18 17:12 11/20/18 15:19 Pancrenomi Moore 10,500 Unit FEEDTUBE 1 each PRN PRN Administration For Clogged Feeding Tube Ascorbic Acid 500 mg 11/01/18 22:00 11/23/18 09:59 Vitamin C FEEDTUBE 500 mg BID NORA Administration Atorvastatin Calcium 40 mg 11/01/18 22:00 11/22/18 21:32 Lipitor FEEDTUBE 40 mg QHS NORA Administration Carvedilol 6.25 mg 11/08/18 13:00 11/23/18 09:59 Coreg PO 6.25 mg BID NORA Administration Clonidine HCl 0.2 mg 11/05/18 17:18 11/19/18 16:33 Catapres-Tts Patch TD 0.2 mg Tu NORA Administration Enoxaparin Sodium 40 mg 11/02/18 10:00 11/23/18 09:59 Lovenox SUB-Q 40 mg QDAY@1000 NORA Administration Daptomycin 400 mg/ Sodium 100 mls @ 200 mls/hr 11/09/18 21:00 11/22/18 21:32 Chloride IV 12/16/18 23:59 200 mls/hr Q24H NORA Administration Protocol Levetiracetam 500 mg 11/01/18 22:00 11/23/18 09:59 Keppra FEEDTUBE 500 mg BID NORA Administration Morphine Sulfate 2 mg 11/01/18 17:15 11/23/18 04:00 Morphine IV 2 mg Q4H PRN Administration Pain, Moderate (4-6) Multivitamins 5 ml 11/02/18 10:00 11/23/18 09:59 Centrum Liq FEEDTUBE 5 ml QDAY NORA Administration Simple Syrup 15 ml 11/03/18 17:12 11/16/18 13:40 Simple Syrup FEEDTUBE 15 ml PRN PRN Administration Hypoglycemia Simple Syrup 30 ml 11/03/18 17:12 Simple Syrup FEEDTUBE PRN PRN Hypoglycemia Sodium Bicarbonate 325 mg 11/03/18 17:12 11/16/18 13:36 Sodium Bicarbonate FEEDTUBE 325 mg PRN PRN Administration For Clogged Feeding Tube Sodium Chloride 10 ml 11/01/18 22:00 11/23/18 10:00 Sodium Chloride Flush Syringe 10 Ml IV 10 ml BID NORA Administration Sodium Chloride 10 ml 11/01/18 17:15 11/23/18 04:05 Sodium Chloride Flush Syringe 10 Ml IV 10 ml PRN PRN Administration LINE FLUSH Sodium Hypochlorite 1 applic 11/08/18 11:00 11/23/18 10:00 Dakin's Half Strength TP Not Given BID NORA Zinc Sulfate 220 mg 11/02/18 10:00 11/23/18 09:59 Zinc Sulfate PO 220 mg DAILY NORA Administration Nutrition/Malnutrition Assess - Dietary Evaluation Nutrition/Malnutrition Findings: Nutrition Notes Start: 11/04/18 16:00 Freq: Status: Active Protocol: Document 11/22/18 19:12 RM (Rec: 11/22/18 19:14 RM [id number]) Nutrition Notes Initial or Follow up Reassessment Current Diagnosis COPD,Diabetes,Sepsis, Hypertension,Heart Failure, Stroke Other Pertinent Diagnosis Sacral PUs, UTI, Dementia Current Diet Nepro at 40 ml/hr Labs/Tests Reviewed Pertinent Medications Reviewed Height 5 ft 8 in Weight 63.1 kg [place] Body Weight (kg) 70.00 BMI 21.1 Subjective/Other Information Pt being cleaned at time of visit. Per nurse pt is tolerating TF at goal rate. Percent of energy/protein needs met: 100%/100% Burn Absent Trauma Absent #1 Nutrition Diagnosis Inadequate oral intake Diagnosis Progress(for reassessment Continues documentation) Is patient on ventilator? No Is Patient Ambulatory and/or Out of Bed No REE-([facility]-confined to bed) [phone] Calculation Used for Recommendations [facility] Additional Notes Protein Needs: 76-95g (1.2-1. 5g/kg) Fluid Needs: 1 ml/kcal Nutrition Intervention Nutrition Support: Nepro 1.8 at 40 ml/hr. Water flush of 200 mls q 4 hrs . Kcal 1,728 Protein (gm) 78 Fluid (mL) 698 Goal #1 TF tolerance Goal #2 Continue to meet at least 75% of calorie and protein needs via TF Anticipated Discharge Needs: Unable to determine at this time Follow-Up By: 11/29/18 Additional Comments Follow for TF tolerance
--- NOTE | 2018-11-23 13:18 | Progress Note ---
Assessment and Plan Severe Sepsis Acute Hypoxemic Respiratory failure Anemia of chronic disease Seizure UTI (urinary tract infection) BPH Dementia sacral pressure ulcer -infected. POA - supplemental oxygen as needed to keep O2 sat's > 90% - continue bronchodilators with pulmonary hygiene per RT - complete antibiotics per ID rec's (On Daptomycin) - prn BIPAP fort increased work of breathing - prn CXR's - continue Coreg re: SVT - continue AED's for seizure control (Keppra) - continue fall precautions & neurochecks - continue aspiration precautions - enteral nutrition as tolerated - continue wound care per WCT - continue bright catheter re: Obstructive Uropathy - GI & VTE prophylaxis - continue mobility protocol for pressure ulcer prophylaxis - continue other care per attending / other consultants ...... remains Full CODE ... re-evaluate in am & prn Subjective Date of service: 11/23/18 Principal diagnosis: Severe Sepsis; Ac. Hypoxemic Resp failure; Anemia; Seizure; UTI; BPH Interval history: Patient is seen today for: Severe Sepsis; Acute Hypoxemic Respiratory failure; Anemia of chronic disease; Seizure; UTI (urinary tract infection); BPH; Dementia; sacral pressure ulcer -infected. POA Seen and examined at bedside; 24-hour events reviewed; nursing and respiratory care staff consulted; no adverse overnight events reported to me; resting peacefully in bed; no emesis or overt aspiration; work of breathing overall improved Objective Vital Signs - 12hr 11/23/18 11/23/18 11/23/18 05:32 05:35 08:13 Temperature 98.5 F Pulse Rate 76 Pulse Rate [ 78 Anterior Bilateral Throughout] Respiratory 20 Rate Respiratory 18 Rate [Anterior Bilateral Throughout] Blood Pressure 134/68 O2 Sat by Pulse 97 98 Oximetry 11/23/18 11/23/18 11/23/18 08:23 09:31 10:00 Temperature 98.9 F Pulse Rate 83 79 Pulse Rate [ 80 Anterior Bilateral Throughout] Respiratory 18 18 Rate Respiratory 18 Rate [Anterior Bilateral Throughout] Blood Pressure 117/63 O2 Sat by Pulse 99 96 Oximetry Constitutional: no acute distress, alert, other (elderly looking AAM, normocephalic with mildly increased resp effort at rest) Eyes: non-icteric ENT: oropharynx moist Neck: no lymphadenopathy, no JVD, other (mild stiffness / contracture) Effort: mildly labored Ascultation: Bilateral: diminished breath sounds, rhonchi Percussion: Bilateral: not dull Cardiovascular: regular rate and rhythm Gastrointestinal: normoactive bowel sounds, soft, non-tender, non-distended Integumentary: rash Extremities: no cyanosis, no edema, pulses normal, other (Patient has pressure ulcer at multiple areas, including sacral area.) Neurologic: non-focal exam, pupils equal and round, CN II-XII normal, other (+ contractures) Psychiatric: mood appropriate, affect normal CBC and BMP: 11/20/18 09:55 11/23/18 05:56 ABG, PT/INR, D-dimer: ABG POC ABG pH 7.494 (7.35-7.45) H 11/01/18 15:27 POC ABG pCO2 34.5 (35-45) L 11/01/18 15:27 POC ABG pO2 139 (80-105) H 11/01/18 15:27 POC ABG HCO3 26.5 (22-26 mml/L) 11/01/18 15:27 POC ABG Total CO2 28 (23-27mmol/L) 11/01/18 15:27 POC ABG O2 Sat 99 11/01/18 15:27 PT/INR, D-dimer PT 16.3 Sec. (12.2-14.9) H 11/01/18 14:50 INR 1.35 (0.87-1.13) H 11/01/18 14:50 Abnormal lab findings: Abnormal Labs 11/01/18 11/01/18 11/01/18 14:50 14:50 14:50 WBC 15.3 H RBC 2.76 L Hgb 7.9 L Hct 23.5 L MCH MCHC RDW 18.3 H Plt Count 567 H Lymph % (Auto) 6.5 L [place] % (Auto) 8.5 H Eos % (Auto) Lymph # 1.0 L [place] # 1.3 H Eos # Seg Neutrophils % 83.4 H Seg Neutrophils # 12.7 H PT 16.3 H INR 1.35 H POC ABG pH POC ABG pCO2 POC ABG pO2 VBG pH Sodium Potassium Chloride Carbon Dioxide BUN 49 H Creatinine Glucose 132 H POC Glucose Magnesium AST 90 H ALT 77 H Alkaline Phosphatase 350 H Total Creatine Kinase NT-Pro-B Natriuret Pep Albumin 1.6 L Urine WBC (Auto) Crossmatch 11/01/18 11/01/18 11/01/18 14:50 14:50 15:27 WBC RBC Hgb Hct MCH MCHC RDW Plt Count Lymph % (Auto) [place] % (Auto) Eos % (Auto) Lymph # [place] # Eos # Seg Neutrophils % Seg Neutrophils # PT INR POC ABG pH 7.494 H POC ABG pCO2 34.5 L POC ABG pO2 139 H VBG pH 7.499 H Sodium Potassium Chloride Carbon Dioxide BUN Creatinine Glucose POC Glucose Magnesium AST ALT Alkaline Phosphatase Total Creatine Kinase NT-Pro-B Natriuret Pep 6776 H Albumin Urine WBC (Auto) Crossmatch 11/01/18 11/03/18 11/03/18 15:57 03:41 03:41 WBC 12.8 H RBC 2.55 L Hgb 6.9 L Hct 22.2 L MCH 27 L MCHC 31 L RDW 17.9 H Plt Count 519 H Lymph % (Auto) [place] % (Auto) Eos % (Auto) Lymph # [place] # Eos # Seg Neutrophils % Seg Neutrophils # PT INR POC ABG pH POC ABG pCO2 POC ABG pO2 VBG pH Sodium 147 H Potassium Chloride 110.3 H Carbon Dioxide BUN 55 H Creatinine Glucose POC Glucose Magnesium AST ALT Alkaline Phosphatase Total Creatine Kinase NT-Pro-B Natriuret Pep Albumin Urine WBC (Auto) > 182.0 H Crossmatch 11/03/18 11/04/18 11/04/18 12:51 05:12 05:12 WBC 11.5 H RBC 2.94 L Hgb 8.3 L Hct 25.3 L MCH MCHC RDW 17.3 H Plt Count 514 H Lymph % (Auto) [place] % (Auto) Eos % (Auto) Lymph # [place] # Eos # Seg Neutrophils % Seg Neutrophils # PT INR POC ABG pH POC ABG pCO2 POC ABG pO2 VBG pH Sodium 147 H Potassium Chloride 112.4 H Carbon Dioxide BUN 52 H Creatinine Glucose POC Glucose Magnesium AST ALT Alkaline Phosphatase Total Creatine Kinase NT-Pro-B Natriuret Pep Albumin Urine WBC (Auto) Crossmatch See Detail 11/05/18 11/05/18 11/06/18 04:50 04:50 05:42 WBC RBC 3.03 L 2.80 L Hgb 8.7 L 7.9 L Hct 26.6 L 24.7 L MCH MCHC RDW 17.1 H 17.0 H Plt Count 502 H 478 H Lymph % (Auto) 10.4 L [place] % (Auto) 8.6 H Eos % (Auto) 4.7 H Lymph # 1.0 L [place] # Eos # 0.5 H Seg Neutrophils % 75.6 H Seg Neutrophils # PT INR POC ABG pH POC ABG pCO2 POC ABG pO2 VBG pH Sodium 149 H Potassium Chloride 114.4 H Carbon Dioxide 21 L BUN 50 H Creatinine Glucose 108 H POC Glucose Magnesium AST ALT Alkaline Phosphatase Total Creatine Kinase NT-Pro-B Natriuret Pep Albumin Urine WBC (Auto) Crossmatch 11/06/18 11/11/18 11/12/18 05:42 18:54 00:22 WBC RBC Hgb Hct MCH MCHC RDW Plt Count Lymph % (Auto) [place] % (Auto) Eos % (Auto) Lymph # [place] # Eos # Seg Neutrophils % Seg Neutrophils # PT INR POC ABG pH POC ABG pCO2 POC ABG pO2 VBG pH Sodium 149 H Potassium Chloride 113.4 H Carbon Dioxide BUN 50 H Creatinine Glucose 121 H POC Glucose 114 H 123 H Magnesium AST ALT Alkaline Phosphatase Total Creatine Kinase NT-Pro-B Natriuret Pep Albumin Urine WBC (Auto) Crossmatch 11/12/18 11/12/18 11/13/18 06:49 11:35 06:34 WBC RBC Hgb Hct MCH MCHC RDW Plt Count Lymph % (Auto) [place] % (Auto) Eos % (Auto) Lymph # [place] # Eos # Seg Neutrophils % Seg Neutrophils # PT INR POC ABG pH POC ABG pCO2 POC ABG pO2 VBG pH Sodium Potassium Chloride Carbon Dioxide BUN Creatinine Glucose POC Glucose 129 H 123 H 128 H Magnesium AST ALT Alkaline Phosphatase Total Creatine Kinase NT-Pro-B Natriuret Pep Albumin Urine WBC (Auto) Crossmatch 11/13/18 11/13/18 11/13/18 09:26 09:26 15:13 WBC RBC 3.08 L Hgb 8.6 L Hct 27.3 L MCH MCHC 31 L RDW 18.3 H Plt Count 504 H Lymph % (Auto) 11.7 L [place] % (Auto) 7.5 H Eos % (Auto) 7.0 H Lymph # [place] # Eos # 0.7 H Seg Neutrophils % 72.9 H Seg Neutrophils # PT INR POC ABG pH POC ABG pCO2 POC ABG pO2 VBG pH Sodium 153 H Potassium 6.3 H* 5.8 H Chloride 122.3 H Carbon Dioxide 21 L BUN 38 H Creatinine Glucose 112 H POC Glucose Magnesium AST ALT Alkaline Phosphatase Total Creatine Kinase NT-Pro-B Natriuret Pep Albumin Urine WBC (Auto) Crossmatch 11/13/18 11/13/18 11/14/18 22:10 23:45 13:17 WBC RBC Hgb Hct MCH MCHC RDW Plt Count Lymph % (Auto) [place] % (Auto) Eos % (Auto) Lymph # [place] # Eos # Seg Neutrophils % Seg Neutrophils # PT INR POC ABG pH POC ABG pCO2 POC ABG pO2 VBG pH Sodium 155 H Potassium 5.3 H Chloride 122.3 H Carbon Dioxide BUN 35 H Creatinine Glucose 113 H POC Glucose 111 H 142 H Magnesium AST ALT Alkaline Phosphatase Total Creatine Kinase NT-Pro-B Natriuret Pep Albumin Urine WBC (Auto) Crossmatch 11/14/18 11/15/18 11/15/18 19:08 00:31 06:45 WBC RBC Hgb Hct MCH MCHC RDW Plt Count Lymph % (Auto) [place] % (Auto) Eos % (Auto) Lymph # [place] # Eos # Seg Neutrophils % Seg Neutrophils # PT INR POC ABG pH POC ABG pCO2 POC ABG pO2 VBG pH Sodium Potassium Chloride Carbon Dioxide BUN Creatinine Glucose POC Glucose 116 H 125 H 131 H Magnesium AST ALT Alkaline Phosphatase Total Creatine Kinase NT-Pro-B Natriuret Pep Albumin Urine WBC (Auto) Crossmatch 11/15/18 11/15/18 11/15/18 07:13 07:13 19:03 WBC 13.2 H RBC 2.81 L Hgb 7.8 L Hct 24.5 L MCH MCHC RDW 18.2 H Plt Count 454 H Lymph % (Auto) 9.0 L [place] % (Auto) 7.5 H Eos % (Auto) Lymph # [place] # 1.0 H Eos # 0.5 H Seg Neutrophils % 78.8 H Seg Neutrophils # 10.4 H PT INR POC ABG pH POC ABG pCO2 POC ABG pO2 VBG pH Sodium 149 H Potassium 5.2 H Chloride 117.2 H Carbon Dioxide BUN 38 H Creatinine Glucose 114 H POC Glucose 141 H Magnesium AST ALT Alkaline Phosphatase Total Creatine Kinase NT-Pro-B Natriuret Pep Albumin Urine WBC (Auto) Crossmatch 11/16/18 11/16/18 11/16/18 01:15 01:15 06:45 WBC RBC Hgb Hct MCH MCHC RDW Plt Count Lymph % (Auto) [place] % (Auto) Eos % (Auto) Lymph # [place] # Eos # Seg Neutrophils % Seg Neutrophils # PT INR POC ABG pH POC ABG pCO2 POC ABG pO2 VBG pH Sodium Potassium 5.3 H Chloride Carbon Dioxide BUN Creatinine Glucose POC Glucose 129 H Magnesium 2.60 H AST ALT Alkaline Phosphatase Total Creatine Kinase NT-Pro-B Natriuret Pep Albumin Urine WBC (Auto) Crossmatch 11/16/18 11/16/18 11/17/18 13:20 18:02 00:16 WBC RBC Hgb Hct MCH MCHC RDW Plt Count Lymph % (Auto) [place] % (Auto) Eos % (Auto) Lymph # [place] # Eos # Seg Neutrophils % Seg Neutrophils # PT INR POC ABG pH POC ABG pCO2 POC ABG pO2 VBG pH Sodium Potassium Chloride Carbon Dioxide BUN Creatinine Glucose POC Glucose 130 H 127 H 120 H Magnesium AST ALT Alkaline Phosphatase Total Creatine Kinase NT-Pro-B Natriuret Pep Albumin Urine WBC (Auto) Crossmatch 11/17/18 11/17/18 11/17/18 05:48 08:02 08:02 WBC RBC Hgb 7.5 L Hct 23.5 L MCH MCHC RDW Plt Count Lymph % (Auto) [place] % (Auto) Eos % (Auto) Lymph # [place] # Eos # Seg Neutrophils % Seg Neutrophils # PT INR POC ABG pH POC ABG pCO2 POC ABG pO2 VBG pH Sodium Potassium Chloride 110.1 H Carbon Dioxide 21 L BUN 38 H Creatinine Glucose 121 H POC Glucose 130 H Magnesium AST ALT Alkaline Phosphatase Total Creatine Kinase NT-Pro-B Natriuret Pep Albumin Urine WBC (Auto) Crossmatch 11/17/18 11/17/18 11/18/18 12:17 16:48 06:00 WBC RBC Hgb Hct MCH MCHC RDW Plt Count Lymph % (Auto) [place] % (Auto) Eos % (Auto) Lymph # [place] # Eos # Seg Neutrophils % Seg Neutrophils # PT INR POC ABG pH POC ABG pCO2 POC ABG pO2 VBG pH Sodium Potassium Chloride Carbon Dioxide BUN Creatinine Glucose POC Glucose 140 H 120 H 137 H Magnesium AST ALT Alkaline Phosphatase Total Creatine Kinase NT-Pro-B Natriuret Pep Albumin Urine WBC (Auto) Crossmatch 11/19/18 11/19/18 11/19/18 00:20 05:35 06:11 WBC RBC Hgb Hct MCH MCHC RDW Plt Count Lymph % (Auto) [place] % (Auto) Eos % (Auto) Lymph # [place] # Eos # Seg Neutrophils % Seg Neutrophils # PT INR POC ABG pH POC ABG pCO2 POC ABG pO2 VBG pH Sodium Potassium Chloride Carbon Dioxide BUN Creatinine Glucose POC Glucose 111 H 126 H Magnesium AST ALT Alkaline Phosphatase Total Creatine Kinase 53 L NT-Pro-B Natriuret Pep Albumin Urine WBC (Auto) Crossmatch 11/19/18 11/19/18 11/20/18 11:37 23:43 06:52 WBC RBC Hgb Hct MCH MCHC RDW Plt Count Lymph % (Auto) [place] % (Auto) Eos % (Auto) Lymph # [place] # Eos # Seg Neutrophils % Seg Neutrophils # PT INR POC ABG pH POC ABG pCO2 POC ABG pO2 VBG pH Sodium Potassium Chloride Carbon Dioxide BUN Creatinine Glucose POC Glucose 139 H 145 H 125 H Magnesium AST ALT Alkaline Phosphatase Total Creatine Kinase NT-Pro-B Natriuret Pep Albumin Urine WBC (Auto) Crossmatch 11/20/18 11/20/18 11/20/18 09:55 09:55 11:49 WBC RBC 3.04 L Hgb 8.4 L Hct 26.1 L MCH MCHC RDW 17.5 H Plt Count Lymph % (Auto) [place] % (Auto) Eos % (Auto) Lymph # [place] # Eos # Seg Neutrophils % Seg Neutrophils # PT INR POC ABG pH POC ABG pCO2 POC ABG pO2 VBG pH Sodium 149 H Potassium Chloride 114.5 H Carbon Dioxide 21 L BUN 35 H Creatinine Glucose 127 H POC Glucose 150 H Magnesium AST ALT Alkaline Phosphatase Total Creatine Kinase NT-Pro-B Natriuret Pep Albumin Urine WBC (Auto) Crossmatch 11/20/18 11/20/18 11/21/18 18:02 23:49 06:14 WBC RBC Hgb Hct MCH MCHC RDW Plt Count Lymph % (Auto) [place] % (Auto) Eos % (Auto) Lymph # [place] # Eos # Seg Neutrophils % Seg Neutrophils # PT INR POC ABG pH POC ABG pCO2 POC ABG pO2 VBG pH Sodium Potassium Chloride Carbon Dioxide BUN Creatinine Glucose POC Glucose 131 H 137 H 133 H Magnesium AST ALT Alkaline Phosphatase Total Creatine Kinase NT-Pro-B Natriuret Pep Albumin Urine WBC (Auto) Crossmatch 11/21/18 11/21/18 11/21/18 10:00 12:09 18:04 WBC RBC Hgb Hct MCH MCHC RDW Plt Count Lymph % (Auto) [place] % (Auto) Eos % (Auto) Lymph # [place] # Eos # Seg Neutrophils % Seg Neutrophils # PT INR POC ABG pH POC ABG pCO2 POC ABG pO2 VBG pH Sodium Potassium Chloride 110.6 H Carbon Dioxide BUN 31 H Creatinine Glucose 119 H POC Glucose 116 H 126 H Magnesium AST ALT Alkaline Phosphatase Total Creatine Kinase NT-Pro-B Natriuret Pep Albumin Urine WBC (Auto) Crossmatch 11/22/18 11/22/18 11/22/18 00:14 05:47 06:23 WBC RBC Hgb Hct MCH MCHC RDW Plt Count Lymph % (Auto) [place] % (Auto) Eos % (Auto) Lymph # [place] # Eos # Seg Neutrophils % Seg Neutrophils # PT INR POC ABG pH POC ABG pCO2 POC ABG pO2 VBG pH Sodium Potassium Chloride 107.6 H Carbon Dioxide BUN 32 H Creatinine 0.7 L Glucose 116 H POC Glucose 122 H 119 H Magnesium AST ALT Alkaline Phosphatase Total Creatine Kinase NT-Pro-B Natriuret Pep Albumin Urine WBC (Auto) Crossmatch 11/22/18 11/22/18 11/22/18 08:40 12:19 17:39 WBC RBC Hgb Hct MCH MCHC RDW Plt Count Lymph % (Auto) [place] % (Auto) Eos % (Auto) Lymph # [place] # Eos # Seg Neutrophils % Seg Neutrophils # PT INR POC ABG pH POC ABG pCO2 POC ABG pO2 VBG pH Sodium Potassium Chloride Carbon Dioxide BUN Creatinine Glucose POC Glucose 150 H 111 H 108 H Magnesium AST ALT Alkaline Phosphatase Total Creatine Kinase NT-Pro-B Natriuret Pep Albumin Urine WBC (Auto) Crossmatch 11/23/18 11/23/18 11/23/18 00:36 05:37 05:56 WBC RBC Hgb Hct MCH MCHC RDW Plt Count Lymph % (Auto) [place] % (Auto) Eos % (Auto) Lymph # [place] # Eos # Seg Neutrophils % Seg Neutrophils # PT INR POC ABG pH POC ABG pCO2 POC ABG pO2 VBG pH Sodium 136 L Potassium Chloride Carbon Dioxide BUN 30 H Creatinine 0.7 L Glucose 103 H POC Glucose 125 H 122 H Magnesium 2.50 H AST ALT Alkaline Phosphatase Total Creatine Kinase NT-Pro-B Natriuret Pep Albumin Urine WBC (Auto) Crossmatch 11/23/18 11:56 WBC RBC Hgb Hct MCH MCHC RDW Plt Count Lymph % (Auto) [place] % (Auto) Eos % (Auto) Lymph # [place] # Eos # Seg Neutrophils % Seg Neutrophils # PT INR POC ABG pH POC ABG pCO2 POC ABG pO2 VBG pH Sodium Potassium Chloride Carbon Dioxide BUN Creatinine Glucose POC Glucose 121 H Magnesium AST ALT Alkaline Phosphatase Total Creatine Kinase NT-Pro-B Natriuret Pep Albumin Urine WBC (Auto) Crossmatch Allied health notes reviewed: nursing
[2018-11-24] MEDS: DUONEB *Not for PRN Use IH SCH ×2 (08:06→20:19)
[2018-11-24] MEDS: KEPPRA FEEDTUBE SCH ×2 (09:52→21:40)
[2018-11-24] MEDS: COREG PO SCH ×2 (09:52→21:40)
[2018-11-24] MEDS: Centrum Liq FEEDTUBE SCH (09:52)
[2018-11-24] MEDS: ZINC SULFATE PO SCH (09:52)
[2018-11-24] MEDS: VITAMIN C FEEDTUBE SCH ×2 (09:52→21:40)
[2018-11-24] MEDS: LOVENOX SUB-Q SCH (09:52)
[2018-11-24] MEDS: SODIUM CHLORIDE FLUSH SYRINGE 10 ML IV SCH ×2 (09:53→21:41)
[2018-11-24] MEDS: DAKIN'S HALF STRENGTH TP SCH ×2 (09:53→21:39)
--- NOTE | 2018-11-24 10:38 | Progress Note ---
Assessment and Plan 1. Chronic combined systolic and diastolic heart failure 2. Nonsustained ventricular tachycardia 3. Paroxysmal atrial fibrillation 4. COPD 5. Decubitus ulcer 6. Persistent sepsis 7. Dementia/metabolic and careful opacity Plan Continue present cardiac management. Correctly collect up monitor this patient not a candidate for further cardiac testing or intervention Subjective Principal diagnosis: Severe Sepsis; Ac. Hypoxemic Resp failure; Anemia; Seizure; UTI; BPH Interval history: No change in mental status Objective Vital Signs Temp Pulse Pulse Resp Resp BP Pulse Ox 11/24/18 08:06 83 18 99 11/24/18 05:14 99.3 F 11/24/18 05:09 76 22 113/55 99 11/23/18 23:37 99.2 F 11/23/18 23:35 77 20 111/54 98 11/23/18 21:12 78 20 100 11/23/18 20:55 98.9 F 11/23/18 20:54 80 20 120/62 96 11/23/18 20:08 77 11/23/18 17:29 86 138/68 96 11/23/18 13:14 98.7 F 80 16 120/58 99 - Physical Examination General: Cachectic HEENT: Positive: Pallor Neck: Positive: neck supple. Negative: JVD/HJR Cardiac: Positive: Regular Rate, S1/S2, PMI, Laterally Displaced Lungs: Positive: clear to auscultation, No Wheeze, Rales, Rhonchi Neuro: Positive: Other (contracted nonverbal or communicative) Abdomen: Positive: Unremarkable, Active Bowel Sounds Extremities: Absent: edema - Allied health notes Allied health notes reviewed: nursing
--- NOTE | 2018-11-24 14:20 | Progress Note ---
Assessment and Plan Severe Sepsis Acute Hypoxemic Respiratory failure Anemia of chronic disease Seizure UTI (urinary tract infection) BPH Dementia sacral pressure ulcer -infected. POA - continue aspiration precautions - supplemental oxygen as needed to keep O2 sat's > 90% - continue bronchodilators with pulmonary hygiene per RT - complete antibiotics per ID rec's (On Daptomycin) - prn BIPAP fort increased work of breathing - prn CXR's - continue Coreg re: SVT - continue AED's for seizure control (Keppra) - continue fall precautions & neurochecks - enteral nutrition as tolerated - continue wound care per WCT - continue bright catheter re: Obstructive Uropathy - GI & VTE prophylaxis - continue mobility protocol for pressure ulcer prophylaxis - continue other care per attending / other consultants ...... remains Full CODE ... re-evaluate in am & prn Subjective Date of service: 11/24/18 Principal diagnosis: Severe Sepsis; Ac. Hypoxemic Resp failure; Anemia; Seizure; UTI; BPH Interval history: Patient is seen today for: Severe Sepsis; Acute Hypoxemic Respiratory failure; Anemia of chronic disease; Seizure; UTI (urinary tract infection); BPH; Dementia; sacral pressure ulcer -infected. POA Seen and examined at bedside; 24-hour events reviewed; nursing and respiratory care staff consulted; no adverse overnight events reported to me; resting peacefully in bed; remains on daptomycin; denies acute uncontrolled pain or increased SOB; No N/V/F/C Objective Vital Signs - 12hr 11/24/18 11/24/18 11/24/18 05:09 05:14 08:06 Temperature 99.3 F Pulse Rate 76 Pulse Rate [ 83 Anterior Bilateral Throughout] Respiratory 22 Rate Respiratory 18 Rate [Anterior Bilateral Throughout] Blood Pressure 113/55 O2 Sat by Pulse 99 99 Oximetry 11/24/18 10:00 Temperature Pulse Rate 75 Pulse Rate [ Anterior Bilateral Throughout] Respiratory 18 Rate Respiratory Rate [Anterior Bilateral Throughout] Blood Pressure O2 Sat by Pulse 96 Oximetry Constitutional: no acute distress, alert, other (elderly looking AAM, normocephalic with mildly increased resp effort at rest) Eyes: non-icteric ENT: oropharynx moist Neck: no lymphadenopathy, no JVD, other (mild stiffness / contracture) Effort: mildly labored Ascultation: Bilateral: diminished breath sounds, rhonchi Percussion: Bilateral: not dull Cardiovascular: regular rate and rhythm Gastrointestinal: normoactive bowel sounds, soft, non-tender, non-distended Integumentary: rash Extremities: no cyanosis, no edema, pulses normal, other (Patient has pressure ulcer at multiple areas, including sacral area.) Neurologic: non-focal exam, pupils equal and round, CN II-XII normal, other (+ contractures) Psychiatric: mood appropriate, affect normal CBC and BMP: 11/26/18 06:20 11/26/18 06:20 ABG, PT/INR, D-dimer: ABG POC ABG pH 7.494 (7.35-7.45) H 11/01/18 15:27 POC ABG pCO2 34.5 (35-45) L 11/01/18 15:27 POC ABG pO2 139 (80-105) H 11/01/18 15:27 POC ABG HCO3 26.5 (22-26 mml/L) 11/01/18 15:27 POC ABG Total CO2 28 (23-27mmol/L) 11/01/18 15:27 POC ABG O2 Sat 99 11/01/18 15:27 PT/INR, D-dimer PT 16.3 Sec. (12.2-14.9) H 11/01/18 14:50 INR 1.35 (0.87-1.13) H 11/01/18 14:50 Abnormal lab findings: Abnormal Labs 11/01/18 11/01/18 11/01/18 14:50 14:50 14:50 WBC 15.3 H RBC 2.76 L Hgb 7.9 L Hct 23.5 L MCH MCHC RDW 18.3 H Plt Count 567 H Lymph % (Auto) 6.5 L [place] % (Auto) 8.5 H Eos % (Auto) Lymph # 1.0 L [place] # 1.3 H Eos # Seg Neutrophils % 83.4 H Seg Neutrophils # 12.7 H PT 16.3 H INR 1.35 H POC ABG pH POC ABG pCO2 POC ABG pO2 VBG pH Sodium Potassium Chloride Carbon Dioxide BUN 49 H Creatinine Glucose 132 H POC Glucose Magnesium AST 90 H ALT 77 H Alkaline Phosphatase 350 H Total Creatine Kinase NT-Pro-B Natriuret Pep Albumin 1.6 L Urine WBC (Auto) Crossmatch 11/01/18 11/01/1811/01/19 14:50 14:50 15:27 WBC RBC Hgb Hct MCH MCHC RDW Plt Count Lymph % (Auto) [place] % (Auto) Eos % (Auto) Lymph # [place] # Eos # Seg Neutrophils % Seg Neutrophils # PT INR POC ABG pH 7.494 H POC ABG pCO2 34.5 L POC ABG pO2 139 H VBG pH 7.499 H Sodium Potassium Chloride Carbon Dioxide BUN Creatinine Glucose POC Glucose Magnesium AST ALT Alkaline Phosphatase Total Creatine Kinase NT-Pro-B Natriuret Pep 6776 H Albumin Urine WBC (Auto) Crossmatch 11/01/18 11/03/18 11/03/18 15:57 03:41 03:41 WBC 12.8 H RBC 2.55 L Hgb 6.9 L Hct 22.2 L MCH 27 L MCHC 31 L RDW 17.9 H Plt Count 519 H Lymph % (Auto) [place] % (Auto) Eos % (Auto) Lymph # [place] # Eos # Seg Neutrophils % Seg Neutrophils # PT INR POC ABG pH POC ABG pCO2 POC ABG pO2 VBG pH Sodium 147 H Potassium Chloride 110.3 H Carbon Dioxide BUN 55 H Creatinine Glucose POC Glucose Magnesium AST ALT Alkaline Phosphatase Total Creatine Kinase NT-Pro-B Natriuret Pep Albumin Urine WBC (Auto) > 182.0 H Crossmatch 11/03/18 11/04/18 11/04/18 12:51 05:12 05:12 WBC 11.5 H RBC 2.94 L Hgb 8.3 L Hct 25.3 L MCH MCHC RDW 17.3 H Plt Count 514 H Lymph % (Auto) [place] % (Auto) Eos % (Auto) Lymph # [place] # Eos # Seg Neutrophils % Seg Neutrophils # PT INR POC ABG pH POC ABG pCO2 POC ABG pO2 VBG pH Sodium 147 H Potassium Chloride 112.4 H Carbon Dioxide BUN 52 H Creatinine Glucose POC Glucose Magnesium AST ALT Alkaline Phosphatase Total Creatine Kinase NT-Pro-B Natriuret Pep Albumin Urine WBC (Auto) Crossmatch See Detail 11/05/18 11/05/18 11/06/18 04:50 04:50 05:42 WBC RBC 3.03 L 2.80 L Hgb 8.7 L 7.9 L Hct 26.6 L 24.7 L MCH MCHC RDW 17.1 H 17.0 H Plt Count 502 H 478 H Lymph % (Auto) 10.4 L [place] % (Auto) 8.6 H Eos % (Auto) 4.7 H Lymph # 1.0 L [place] # Eos # 0.5 H Seg Neutrophils % 75.6 H Seg Neutrophils # PT INR POC ABG pH POC ABG pCO2 POC ABG pO2 VBG pH Sodium 149 H Potassium Chloride 114.4 H Carbon Dioxide 21 L BUN 50 H Creatinine Glucose 108 H POC Glucose Magnesium AST ALT Alkaline Phosphatase Total Creatine Kinase NT-Pro-B Natriuret Pep Albumin Urine WBC (Auto) Crossmatch 11/06/18 11/11/18 11/12/18 05:42 18:54 00:22 WBC RBC Hgb Hct MCH MCHC RDW Plt Count Lymph % (Auto) [place] % (Auto) Eos % (Auto) Lymph # [place] # Eos # Seg Neutrophils % Seg Neutrophils # PT INR POC ABG pH POC ABG pCO2 POC ABG pO2 VBG pH Sodium 149 H Potassium Chloride 113.4 H Carbon Dioxide BUN 50 H Creatinine Glucose 121 H POC Glucose 114 H 123 H Magnesium AST ALT Alkaline Phosphatase Total Creatine Kinase NT-Pro-B Natriuret Pep Albumin Urine WBC (Auto) Crossmatch 11/12/18 11/12/18 11/13/18 06:49 11:35 06:34 WBC RBC Hgb Hct MCH MCHC RDW Plt Count Lymph % (Auto) [place] % (Auto) Eos % (Auto) Lymph # [place] # Eos # Seg Neutrophils % Seg Neutrophils # PT INR POC ABG pH POC ABG pCO2 POC ABG pO2 VBG pH Sodium Potassium Chloride Carbon Dioxide BUN Creatinine Glucose POC Glucose 129 H 123 H 128 H Magnesium AST ALT Alkaline Phosphatase Total Creatine Kinase NT-Pro-B Natriuret Pep Albumin Urine WBC (Auto) Crossmatch 11/13/18 11/13/18 11/13/18 09:26 09:26 15:13 WBC RBC 3.08 L Hgb 8.6 L Hct 27.3 L MCH MCHC 31 L RDW 18.3 H Plt Count 504 H Lymph % (Auto) 11.7 L [place] % (Auto) 7.5 H Eos % (Auto) 7.0 H Lymph # [place] # Eos # 0.7 H Seg Neutrophils % 72.9 H Seg Neutrophils # PT INR POC ABG pH POC ABG pCO2 POC ABG pO2 VBG pH Sodium 153 H Potassium 6.3 H* 5.8 H Chloride 122.3 H Carbon Dioxide 21 L BUN 38 H Creatinine Glucose 112 H POC Glucose Magnesium AST ALT Alkaline Phosphatase Total Creatine Kinase NT-Pro-B Natriuret Pep Albumin Urine WBC (Auto) Crossmatch 11/13/18 11/13/18 11/14/18 22:10 23:45 13:17 WBC RBC Hgb Hct MCH MCHC RDW Plt Count Lymph % (Auto) [place] % (Auto) Eos % (Auto) Lymph # [place] # Eos # Seg Neutrophils % Seg Neutrophils # PT INR POC ABG pH POC ABG pCO2 POC ABG pO2 VBG pH Sodium 155 H Potassium 5.3 H Chloride 122.3 H Carbon Dioxide BUN 35 H Creatinine Glucose 113 H POC Glucose 111 H 142 H Magnesium AST ALT Alkaline Phosphatase Total Creatine Kinase NT-Pro-B Natriuret Pep Albumin Urine WBC (Auto) Crossmatch 11/14/18 11/15/18 11/15/18 19:08 00:31 06:45 WBC RBC Hgb Hct MCH MCHC RDW Plt Count Lymph % (Auto) [place] % (Auto) Eos % (Auto) Lymph # [place] # Eos # Seg Neutrophils % Seg Neutrophils # PT INR POC ABG pH POC ABG pCO2 POC ABG pO2 VBG pH Sodium Potassium Chloride Carbon Dioxide BUN Creatinine Glucose POC Glucose 116 H 125 H 131 H Magnesium AST ALT Alkaline Phosphatase Total Creatine Kinase NT-Pro-B Natriuret Pep Albumin Urine WBC (Auto) Crossmatch 11/15/18 11/15/18 11/15/18 07:13 07:13 19:03 WBC 13.2 H RBC 2.81 L Hgb 7.8 L Hct 24.5 L MCH MCHC RDW 18.2 H Plt Count 454 H Lymph % (Auto) 9.0 L [place] % (Auto) 7.5 H Eos % (Auto) Lymph # [place] # 1.0 H Eos # 0.5 H Seg Neutrophils % 78.8 H Seg Neutrophils # 10.4 H PT INR POC ABG pH POC ABG pCO2 POC ABG pO2 VBG pH Sodium 149 H Potassium 5.2 H Chloride 117.2 H Carbon Dioxide BUN 38 H Creatinine Glucose 114 H POC Glucose 141 H Magnesium AST ALT Alkaline Phosphatase Total Creatine Kinase NT-Pro-B Natriuret Pep Albumin Urine WBC (Auto) Crossmatch 11/16/18 11/16/18 11/16/18 01:15 01:15 06:45 WBC RBC Hgb Hct MCH MCHC RDW Plt Count Lymph % (Auto) [place] % (Auto) Eos % (Auto) Lymph # [place] # Eos # Seg Neutrophils % Seg Neutrophils # PT INR POC ABG pH POC ABG pCO2 POC ABG pO2 VBG pH Sodium Potassium 5.3 H Chloride Carbon Dioxide BUN Creatinine Glucose POC Glucose 129 H Magnesium 2.60 H AST ALT Alkaline Phosphatase Total Creatine Kinase NT-Pro-B Natriuret Pep Albumin Urine WBC (Auto) Crossmatch 11/16/18 11/16/18 11/17/18 13:20 18:02 00:16 WBC RBC Hgb Hct MCH MCHC RDW Plt Count Lymph % (Auto) [place] % (Auto) Eos % (Auto) Lymph # [place] # Eos # Seg Neutrophils % Seg Neutrophils # PT INR POC ABG pH POC ABG pCO2 POC ABG pO2 VBG pH Sodium Potassium Chloride Carbon Dioxide BUN Creatinine Glucose POC Glucose 130 H 127 H 120 H Magnesium AST ALT Alkaline Phosphatase Total Creatine Kinase NT-Pro-B Natriuret Pep Albumin Urine WBC (Auto) Crossmatch 11/17/18 11/17/18 11/17/18 05:48 08:02 08:02 WBC RBC Hgb 7.5 L Hct 23.5 L MCH MCHC RDW Plt Count Lymph % (Auto) [place] % (Auto) Eos % (Auto) Lymph # [place] # Eos # Seg Neutrophils % Seg Neutrophils # PT INR POC ABG pH POC ABG pCO2 POC ABG pO2 VBG pH Sodium Potassium Chloride 110.1 H Carbon Dioxide 21 L BUN 38 H Creatinine Glucose 121 H POC Glucose 130 H Magnesium AST ALT Alkaline Phosphatase Total Creatine Kinase NT-Pro-B Natriuret Pep Albumin Urine WBC (Auto) Crossmatch 11/17/18 11/17/18 11/18/18 12:17 16:48 06:00 WBC RBC Hgb Hct MCH MCHC RDW Plt Count Lymph % (Auto) [place] % (Auto) Eos % (Auto) Lymph # [place] # Eos # Seg Neutrophils % Seg Neutrophils # PT INR POC ABG pH POC ABG pCO2 POC ABG pO2 VBG pH Sodium Potassium Chloride Carbon Dioxide BUN Creatinine Glucose POC Glucose 140 H 120 H 137 H Magnesium AST ALT Alkaline Phosphatase Total Creatine Kinase NT-Pro-B Natriuret Pep Albumin Urine WBC (Auto) Crossmatch 11/19/18 11/19/18 11/19/18 00:20 05:35 06:11 WBC RBC Hgb Hct MCH MCHC RDW Plt Count Lymph % (Auto) [place] % (Auto) Eos % (Auto) Lymph # [place] # Eos # Seg Neutrophils % Seg Neutrophils # PT INR POC ABG pH POC ABG pCO2 POC ABG pO2 VBG pH Sodium Potassium Chloride Carbon Dioxide BUN Creatinine Glucose POC Glucose 111 H 126 H Magnesium AST ALT Alkaline Phosphatase Total Creatine Kinase 53 L NT-Pro-B Natriuret Pep Albumin Urine WBC (Auto) Crossmatch 11/19/18 11/19/18 11/20/18 11:37 23:43 06:52 WBC RBC Hgb Hct MCH MCHC RDW Plt Count Lymph % (Auto) [place] % (Auto) Eos % (Auto) Lymph # [place] # Eos # Seg Neutrophils % Seg Neutrophils # PT INR POC ABG pH POC ABG pCO2 POC ABG pO2 VBG pH Sodium Potassium Chloride Carbon Dioxide BUN Creatinine Glucose POC Glucose 139 H 145 H 125 H Magnesium AST ALT Alkaline Phosphatase Total Creatine Kinase NT-Pro-B Natriuret Pep Albumin Urine WBC (Auto) Crossmatch 11/20/18 11/20/18 11/20/18 09:55 09:55 11:49 WBC RBC 3.04 L Hgb 8.4 L Hct 26.1 L MCH MCHC RDW 17.5 H Plt Count Lymph % (Auto) [place] % (Auto) Eos % (Auto) Lymph # [place] # Eos # Seg Neutrophils % Seg Neutrophils # PT INR POC ABG pH POC ABG pCO2 POC ABG pO2 VBG pH Sodium 149 H Potassium Chloride 114.5 H Carbon Dioxide 21 L BUN 35 H Creatinine Glucose 127 H POC Glucose 150 H Magnesium AST ALT Alkaline Phosphatase Total Creatine Kinase NT-Pro-B Natriuret Pep Albumin Urine WBC (Auto) Crossmatch 11/20/18 11/20/18 11/21/18 18:02 23:49 06:14 WBC RBC Hgb Hct MCH MCHC RDW Plt Count Lymph % (Auto) [place] % (Auto) Eos % (Auto) Lymph # [place] # Eos # Seg Neutrophils % Seg Neutrophils # PT INR POC ABG pH POC ABG pCO2 POC ABG pO2 VBG pH Sodium Potassium Chloride Carbon Dioxide BUN Creatinine Glucose POC Glucose 131 H 137 H 133 H Magnesium AST ALT Alkaline Phosphatase Total Creatine Kinase NT-Pro-B Natriuret Pep Albumin Urine WBC (Auto) Crossmatch 11/21/18 11/21/18 11/21/18 10:00 12:09 18:04 WBC RBC Hgb Hct MCH MCHC RDW Plt Count Lymph % (Auto) [place] % (Auto) Eos % (Auto) Lymph # [place] # Eos # Seg Neutrophils % Seg Neutrophils # PT INR POC ABG pH POC ABG pCO2 POC ABG pO2 VBG pH Sodium Potassium Chloride 110.6 H Carbon Dioxide BUN 31 H Creatinine Glucose 119 H POC Glucose 116 H 126 H Magnesium AST ALT Alkaline Phosphatase Total Creatine Kinase NT-Pro-B Natriuret Pep Albumin Urine WBC (Auto) Crossmatch 11/22/18 11/22/18 11/22/18 00:14 05:47 06:23 WBC RBC Hgb Hct MCH MCHC RDW Plt Count Lymph % (Auto) [place] % (Auto) Eos % (Auto) Lymph # [place] # Eos # Seg Neutrophils % Seg Neutrophils # PT INR POC ABG pH POC ABG pCO2 POC ABG pO2 VBG pH Sodium Potassium Chloride 107.6 H Carbon Dioxide BUN 32 H Creatinine 0.7 L Glucose 116 H POC Glucose 122 H 119 H Magnesium AST ALT Alkaline Phosphatase Total Creatine Kinase NT-Pro-B Natriuret Pep Albumin Urine WBC (Auto) Crossmatch 11/22/18 11/22/18 11/22/18 08:40 12:19 17:39 WBC RBC Hgb Hct MCH MCHC RDW Plt Count Lymph % (Auto) [place] % (Auto) Eos % (Auto) Lymph # [place] # Eos # Seg Neutrophils % Seg Neutrophils # PT INR POC ABG pH POC ABG pCO2 POC ABG pO2 VBG pH Sodium Potassium Chloride Carbon Dioxide BUN Creatinine Glucose POC Glucose 150 H 111 H 108 H Magnesium AST ALT Alkaline Phosphatase Total Creatine Kinase NT-Pro-B Natriuret Pep Albumin Urine WBC (Auto) Crossmatch 11/23/18 11/23/18 11/23/18 00:36 05:37 05:56 WBC RBC Hgb Hct MCH MCHC RDW Plt Count Lymph % (Auto) [place] % (Auto) Eos % (Auto) Lymph # [place] # Eos # Seg Neutrophils % Seg Neutrophils # PT INR POC ABG pH POC ABG pCO2 POC ABG pO2 VBG pH Sodium 136 L Potassium Chloride Carbon Dioxide BUN 30 H Creatinine 0.7 L Glucose 103 H POC Glucose 125 H 122 H Magnesium 2.50 H AST ALT Alkaline Phosphatase Total Creatine Kinase NT-Pro-B Natriuret Pep Albumin Urine WBC (Auto) Crossmatch 11/23/18 11/23/18 11/23/18 11:56 17:39 23:40 WBC RBC Hgb Hct MCH MCHC RDW Plt Count Lymph % (Auto) [place] % (Auto) Eos % (Auto) Lymph # [place] # Eos # Seg Neutrophils % Seg Neutrophils # PT INR POC ABG pH POC ABG pCO2 POC ABG pO2 VBG pH Sodium Potassium Chloride Carbon Dioxide BUN Creatinine Glucose POC Glucose 121 H 113 H 117 H Magnesium AST ALT Alkaline Phosphatase Total Creatine Kinase NT-Pro-B Natriuret Pep Albumin Urine WBC (Auto) Crossmatch 11/24/18 11/24/18 05:13 12:00 WBC RBC Hgb Hct MCH MCHC RDW Plt Count Lymph % (Auto) [place] % (Auto) Eos % (Auto) Lymph # [place] # Eos # Seg Neutrophils % Seg Neutrophils # PT INR POC ABG pH POC ABG pCO2 POC ABG pO2 VBG pH Sodium Potassium Chloride Carbon Dioxide BUN Creatinine Glucose POC Glucose 143 H 123 H Magnesium AST ALT Alkaline Phosphatase Total Creatine Kinase NT-Pro-B Natriuret Pep Albumin Urine WBC (Auto) Crossmatch Allied health notes reviewed: nursing
[2018-11-24] MEDS: MORPHINE IV PRN (18:42)
[2018-11-25 06:26] LABS: BUN/Creatinine Ratio 43; Blood Urea Nitrogen 30 mg/dL (9-20); Calcium 9.5 mg/dL (8.4-10.2); Hematocrit 21.2 % (35.5-45.6); Hemoglobin 6.8 gm/dl (11.8-15.2); Hemolysis Index 7; Mean Corpuscular HGB Conc 32 % (32-34); Mean Corpuscular Volume 86 fl (84-94); Platelet Count 435 K/mm3 (140-440); Red Blood Count 2.48 M/mm3 (3.65-5.03); Red Cell Distribution Width 17.7 % (13.2-15.2)
[2018-11-25] MEDS: DUONEB *Not for PRN Use IH SCH ×2 (08:44→20:14)
--- NOTE | 2018-11-25 10:06 | Progress Note ---
Assessment and Plan NSVT on tele Severe sepsis Decubitus ulcer infections and recurrent bacteremia Infection deemed incurable and hospice was recommended Recurrent UTI Chronic respiratory failure Anemia Chronically elevated troponin Paroxysmal Afib previously considered not a candidate for oral anticoagulation LBBB, chronic Cardiomyopathy EF 30-35% DIANA-i allergy Medical therapy for cardiomyopathy and recurrent NSVT. Otherwise, conservative cardiac management. Subjective Date of service: 11/25/18 Principal diagnosis: Severe Sepsis; Ac. Hypoxemic Resp failure; Anemia; Seizure; UTI; BPH Interval history: Noted an acute drop on H&H. Sinus rhythm on telemetry. Objective Vital Signs Temp Pulse Pulse Pulse Resp Resp Resp 11/25/18 08:57 72 18 11/25/18 08:44 71 18 11/25/18 08:29 98.2 F 72 18 11/24/18 23:26 98.0 F 67 20 11/24/18 23:00 11/24/18 22:00 74 18 11/24/18 20:15 91 H 18 11/24/18 19:05 98.0 F 79 18 11/24/18 18:11 98.2 F 78 16 11/24/18 13:20 99.1 F 75 16 BP Pulse Ox 11/25/18 08:57 11/25/18 08:44 100 11/25/18 08:29 130/58 100 11/24/18 23:26 109/44 100 11/24/18 23:00 97 11/24/18 22:00 11/24/18 20:15 11/24/18 19:05 117/54 99 11/24/18 18:11 129/53 99 11/24/18 13:20 110/55 99 - Physical Examination General: No Apparent Distress, Cachectic HEENT: Positive: Pallor Cardiac: Positive: Reg Rate and Rhythm Neuro: Positive: Other (contracted) Extremities: Absent: edema - Labs and Meds CBC 11/25/18 Range/Units 05:25 WBC 8.1 (4.5-11.0) K/mm3 RBC 2.48 L (3.65-5.03) M/mm3 Hgb 6.8 L (11.8-15.2) gm/dl Hct 21.2 L (35.5-45.6) % Plt Count 435 (140-440) K/mm3 Comprehensive Metabolic Panel 11/25/18 Range/Units 05:25 Sodium 140 (137-145) mmol/L Potassium 3.9 (3.6-5.0) mmol/L Chloride 108.8 H (98-107) mmol/L Carbon Dioxide 22 (22-30) mmol/L BUN 30 H (9-20) mg/dL Creatinine 0.7 L (0.8-1.5) mg/dL Glucose 112 H (75-100) mg/dL Calcium 9.5 (8.4-10.2) mg/dL - Allied health notes Allied health notes reviewed: nursing
[2018-11-25] MEDS: ZINC SULFATE PO SCH (10:37)
[2018-11-25] MEDS: LOVENOX SUB-Q SCH (10:37)
[2018-11-25] MEDS: KEPPRA FEEDTUBE SCH ×2 (10:37→23:43)
[2018-11-25] MEDS: Centrum Liq FEEDTUBE SCH (10:37)
[2018-11-25] MEDS: COREG PO SCH ×2 (10:38→23:43)
[2018-11-25] MEDS: VITAMIN C FEEDTUBE SCH ×2 (10:38→23:43)
[2018-11-25] MEDS: SODIUM CHLORIDE FLUSH SYRINGE 10 ML IV SCH ×2 (10:38→23:43)
[2018-11-25] MEDS: DAKIN'S HALF STRENGTH TP SCH ×2 (10:40→23:44)
--- NOTE | 2018-11-25 11:06 | Progress Note ---
Assessment and Plan Cultures: Blood culture 10/01/2018 MRSA 2 of 4. Blood culture 10/03/2018 MRSA Blood culture 10/08/2018 no growth Blood culture 10/11/2018 no growth Blood culture 10/21/2018 no growth Blood culture 11/01/2018 Staph haemolyticus 2 of 4 bottles, resistent to methicillin and MRSA 1 of 4 bottles Blood culture 11/04/2018 no growth Assessment: 67 y/o male with history of HTN, CVA, Obstructive Uropathy, Contracture, Multiple Decubitus Ulcers, PA, DM, OA, Seizure Disorder, COPD, Dementia, Debility, BPH, well known to ID due to multiple admissions secondary to ducubitus ulcers infections and recurrent bacteremia, last time admitted on 10/02/2018 found with MRSA bacteremia jessica from decubitus ulcers mainly active large left trochanteric with bone exposure and sacral with bone exposure. Patient's infection was deemed incurable and hospice was recommended. Patient was discharged back to [facility] on IV vancomycin 1 gm every 48 hours for total 6 weeks ending 11/12/2018 via neck tunneled cath. Patient was readmitted on due to AMS, worsening SOB. Patient is lethargic and unable to provide history. At the [facility] he was found to have respiratory distress upon evaluation the morning of admission,pulse oximetry in the 80's: 1) Severe Sepsis: Improved. Etiology most likely Recurrent Staph bacteremia +/- CAUTI. 2) Staph haemolyticus and MRSA bacteremia with recent MRSA bacteremia: Blood culture 11/01/2018 Staph haemolyticus 2 of 4 bottles and MRSA 1 of 4. Source likely multiple decubitus ulcers or Neck IV central line. Patient is failing vancomycin. He has a tunneled neck cath. Recent TTE negative for vegetations. On daptomycin. 3) Recent septic shock due to polymicrobial bacteremia ESBL and carbapenem resistant E coli, MDR Proteus, Strep and E faecalis on 07/29/2018 probably from multiple infected decubitus ulcers and less likely UTI. Repeat blood cultures 07/31/2018 showed same MDR E coli 1 of 4 bottles then 08/06/2018 blood cultures showed no growth. Patient was treated with Vabomere for 14 days. 4) Multiple infected decubitus ulcers: His prognosis has been poor and hospice has been recommended several times in the past but family has declined. declined. His wounds are not curable considering his contractures, bed bound status and poor nutritional status. There was also suspicion of septic arthritis of left hip from decubitus ulcer. S/p debridement of multiple pressure ulcerations on 11/07/2018- stage 4 left hip pressure ulceration was surgically excisionally debrided of necrotic bone, stage 3 sacral, right ankle and left heel pressure ulcers were then surgically, excisionally debrided of necrotic SQ fat, stage 4 right heel, left lateral heel and right lateral leg ulcerations were surgically, excisionally debrided of necrotic SQ tissue, muscle and fascia.. s/p debridement 11/13/18 of multiple stage 3/4 pressure u lcers sacrum, right lateral leg, right lateral ankle, left heel, left hip and right heel Dr Man recommended bilateral AKA, patient and daughter refused. Dr Man recommended Orthopedic consultation for possible left hip disarticulation as his left hip joint is crumbling and has profuse purulent drainage. s/p Debridement of multiple decubitus ulcers 11/19/18 . 5) Recurrent UTI: patient's bright was removed home 2 weeks ago, a new bright placed here 6) Acute encephalopathy: multifactorial. 7) Acute resp failure: was on BIPAP now NC O2. EF 30-35% pericaldial and pleural effusion. Recommendations: - continue Daptomycin IV for now D18 - always contact isolation - at discharge will do daptomycin 400 mg IV q day for 6 weeks until 12/16/2018, Order placed with case management Extremely poor prognosis [facility] M: [phone] O:[phone] Subjective Date of service: 11/25/18 Principal diagnosis: Severe Sepsis; Ac. Hypoxemic Resp failure; Anemia; Seizure; UTI; BPH Interval history: Patient seen and examined. Awake. Alert. Continues to verbalize bilateral hip and buttock pain. No fevers. Objective - Exam Narrative Exam: General appearance: Awake. Reports acute pain. Eyes: anicteric sclerae, moist conjunctivae; no lid-lag; PERRLA HENT: Atraumatic; oropharynx limited Neck: Trachea midline; supple, no thyromegaly or lymphadenopathy Lungs: CTA CV: RRR no murmur Abdomen: Soft, non-tender Extremities: marked legs contractions, multiple decubitus ulcers covered with dressings Skin: multiple skin tears Psych: Calm Neuro: alert - Constitutional Vitals: Vital Signs Temp Pulse Resp BP Pulse Ox 98.2 F 72 18 130/58 100 11/25/18 08:29 11/25/18 10:38 11/25/18 08:57 11/25/18 10:38 11/25/18 08:44 Temperature -Last 24 Hours Temperature 98.2 F Temperature 98.0 F Temperature 98.0 F Temperature 98.2 F Temperature 99.1 F - Labs CBC & Chem 7: 11/25/18 11:28 11/25/18 05:25 Labs: Abnormal lab results 11/24/18 11/24/18 11/24/18 Range/Units 12:00 18:13 23:34 RBC (3.65-5.03) M/mm3 Hgb (11.8-15.2) gm/dl Hct (35.5-45.6) % RDW (13.2-15.2) % Chloride (98-107) mmol/L BUN (9-20) mg/dL Creatinine (0.8-1.5) mg/dL Glucose (75-100) mg/dL POC Glucose 123 H 124 H 115 H (70-105) 11/25/18 11/25/18 11/25/18 Range/Units 05:25 05:25 06:46 RBC 2.48 L (3.65-5.03) M/mm3 Hgb 6.8 L (11.8-15.2) gm/dl Hct 21.2 L (35.5-45.6) % RDW 17.7 H (13.2-15.2) % Chloride 108.8 H (98-107) mmol/L BUN 30 H (9-20) mg/dL Creatinine 0.7 L (0.8-1.5) mg/dL Glucose 112 H (75-100) mg/dL POC Glucose 133 H (70-105)
[2018-11-25] MEDS: MORPHINE IV PRN ×2 (11:13→16:08)
[2018-11-25 12:08] LABS: Hemoglobin 7.4 gm/dl (11.8-15.2)
--- NOTE | 2018-11-25 13:45 | Progress Note ---
Assessment and Plan Assessment and plan: 67-year-old male with history of HTN, CVA, Obstructive Uropathy, Diastolic CHF, Contracture, Sacral Decubitus Ulcers, NC, DM, OA, Seizure Disorder, COPD, Dementia, BPH presents to ED for evaluation. Pt is stuporous and unable to provide history. Pt history taken from ED Staff, EMS, and SNF Staff. As per staff, the patient was found to have respiratory distress upon evaluation this morning. Pt found to have pulse oximetry in the 80's. EMS notified and patient subsequently transported to [facility] for further care and evaluation. Pt seen and evaluated in ED and found to have UTI, Sepsis, Encephalopathy as well as Acute Hypoxemic Respiratory Failure. Pt initiated on NIPPV in ED with improvement in symptoms. Pt initially admitted to [facility] now transferred to [facility]. Extensive discussion with family about patients poor prognosis surgery consulted for possible debridment ID following, Pulmonary status improved Continue isolation care, Chaudhary placed by Urology please do not remove Discharge pending on isolation room availability at the [facility] Paroxysmal SVTs -Cardiology was consulted during this admission -Patient was started on Coreg 6.25 and twice a day - We'll monitor potassium, magnesium NSVT 21 beats vtach 11/22 Cardiology reconsulted Sepsis with MRSA bacteremia, UTI, Infected decub ulcer POA, osteomyelitis poa - Patient had being multiple admission in the past including this one for similar situation - Previously discussed multiple time with family for hospice placement but they refused - Patient was previously discharged with vancomycin for MRSA bacteremia - He readmitted this time while he was on vancomycin and blood cultures still growing MRSA - Changed antibiotic to daptomycin per ID - at discharge will need daptomycin 400 mg IV q day for 6 weeks until 12/16/2018, Order placed with case management Sacral pressure ulcer -infected. POA Wound care nurse following. Debridement done by Dr Man Amputation recommended and the daughter refused Acute on chronic encephalopathy - Due to sepsis and underlying dementia - Continue to provide supportive care Acute hypoxemic Respiratory failure Likely from underlying CHF exacerbation and profound sepsis cont Supplemental oxygen, nebulizer therapy, mgt per pulmonology CHFeEF 30-35% with exacerbation, poa - Continue to monitor in's and O's, daily weight, aspirin and statin and beta chandan, patient is allergic to ACEI Anemia of chronic disease Transfused one unit PRBC hemoglobin is stable Hypernatremia. Resolved started on D5W on 11/20, now discontinued Seizure Continue current therapy, seizure precautions. BPH status post TURP and obstructive uropathy Continue Chaudhary catherter placed by urology during this admission Chronic Dementia supportive care DVT prophylaxis Prophylactic lovenox POOR PROGNOSIS Disposition; Arranged family meeting on 11/14 with piano case and bench assembler patient's daughters, granddaughter and ex- along with Dr. Wynne. Family still wants to continue the antibiotic treatment, but they mention if antibiotic treatment fails this time and patient continued to spike fever or remains bacteremic with daptomycin then they would possibly consider hospice. Family also considering for DO NOT RESUSCITATE and does not want any life support for the patient, but they did not signed the DNR form yet. [facility] be [facility] as soon as isolation room is available. History Interval history: had debridement multiple decubitus ulcers again on 11/20 21 beats vtach morning of 11/22 Hospitalist Physical - Physical exam Narrative exam: Gen: Not in acute distress. lying in bed Head exam is unremarkable. No scleral icterus . Neck is without jugular venous distension, thyromegaly, or carotid bruits. Lungs are clear to auscultation. Cardiac exam reveals regular rate and Rhythm. First and second heart sounds normal. No murmurs, rubs or gallops. Abdominal exam reveals non tender, not distended,normal bowel sounds, no masses, Extremities contracted extremities. WEB ANALYST: Awake,alert, contracted extremities Skin; multiple decubitus ulcers, including the sacrum , lower extremities bilateral. - Constitutional Vitals: Temp Pulse Resp BP Pulse Ox 98.5 F 78 18 148/79 98 11/25/18 11:09 11/25/18 11:09 11/25/18 11:09 11/25/18 11:11/25/18 11:09 General appearance: Present: no acute distress Results - Labs CBC & Chem 7: 11/25/18 11:28 11/25/18 05:25 Labs: Laboratory Last Values WBC 8.1 K/mm3 (4.5-11.0) 11/25/18 05:25 RBC 2.48 M/mm3 (3.65-5.03) L 11/25/18 05:25 Hgb 7.4 gm/dl (11.8-15.2) L 11/25/18 11:28 Hct 23.0 % (35.5-45.6) L 11/25/18 11:28 MCV 86 fl (84-94) 11/25/18 05:25 MCH 28 pg (28-32) 11/25/18 05:25 MCHC 32 % (32-34) 11/25/18 05:25 RDW 17.7 % (13.2-15.2) H 11/25/18 05:25 Plt Count 435 K/mm3 (140-440) 11/25/18 05:25 Lymph % (Auto) 9.0 % (13.4-35.0) L 11/15/18 07:13 [place] % (Auto) 7.5 % (0.0-7.3) H 11/15/18 07:13 Eos % (Auto) 3.9 % (0.0-4.3) 11/15/18 07:13 Baso % (Auto) 0.8 % (0.0-1.8) 11/15/18 07:13 Lymph # 1.2 K/mm3 (1.2-5.4) 11/15/18 07:13 [place] # 1.0 K/mm3 (0.0-0.8) H 11/15/18 07:13 Eos # 0.5 K/mm3 (0.0-0.4) H 11/15/18 07:13 Baso # 0.1 K/mm3 (0.0-0.1) 11/15/18 07:13 Seg Neutrophils % 78.8 % (40.0-70.0) H 11/15/18 07:13 Seg Neutrophils # 10.4 K/mm3 (1.8-7.7) H 11/15/18 07:13 PT 16.3 Sec. (12.2-14.9) H 11/01/18 14:50 INR 1.35 (0.87-1.13) H 11/01/18 14:50 POC ABG pH 7.494 (7.35-7.45) H 11/01/18 15:27 POC ABG pCO2 34.5 (35-45) L 11/01/18 15:27 POC ABG pO2 139 (80-105) H 11/01/18 15:27 POC ABG HCO3 26.5 (22-26 mml/L) 11/01/18 15:27 POC ABG Total CO2 28 (23-27mmol/L) 11/01/18 15:27 POC ABG O2 Sat 99 11/01/18 15:27 POC ABG Base Excess 3 ((-2) - (+3)mmol/L) 11/01/18 15:27 VBG pH 7.499 (7.320-7.420) H 11/01/18 14:50 50 % 11/01/18 15:27 Sodium 140 mmol/L (137-145) 11/25/18 05:25 Potassium 3.9 mmol/L (3.6-5.0) 11/25/18 05:25 Chloride 108.8 mmol/L (98-107) H 11/25/18 05:25 Carbon Dioxide 22 mmol/L (22-30) 11/25/18 05:25 13 mmol/L 11/25/18 05:25 BUN 30 mg/dL (9-20) H 11/25/18 05:25 0.7 mg/dL (0.8-1.5) L 11/25/18 05:25 Estimated GFR > 60 ml/min 11/25/18 05:25 43 % 11/25/18 05:25 Glucose 112 mg/dL (75-100) H 11/25/18 05:25 POC Glucose 127 (70-105) H 11/25/18 11:15 Lactic Acid 1.80 mmol/L (0.7-2.0) 11/01/18 14:50 Calcium 9.5 mg/dL (8.4-10.2) 11/25/18 05:25 Phosphorus 2.90 mg/dL (2.5-4.5) 11/22/18 09:43 Magnesium 2.50 mg/dL (1.7-2.3) H 11/23/18 05:56 0.30 mg/dL (0.1-1.2) 11/01/18 14:50 AST 90 units/L (5-40) H 11/01/18 14:50 ALT 77 units/L (7-56) H 11/01/18 14:50 350 units/L (35-129) H 11/01/18 14:50 53 units/L (55-170) L 11/19/18 05:35 NT-Pro-B Natriuret Pep 6776 pg/mL (0-900) H 11/01/18 14:50 7.9 g/dL (6.3-8.2) 11/01/18 14:50 1.6 g/dL (3.9-5) L 11/01/18 14:50 0.3 % 11/01/18 14:50 Yellow (Yellow) 11/01/18 15:57 Turbid (Clear) 11/01/18 15:57 6.0 (5.0-7.0) 11/01/18 15:57 Ur Specific [place] 1.016 (1.003-1.030) 11/01/18 15:57 100 mg/dl mg/dL (Negative) 11/01/18 15:57 Neg mg/dL (Negative) 11/01/18 15:57 Neg mg/dL (Negative) 11/01/18 15:57 Neg (Negative) 11/01/18 15:57 Neg (Negative) 11/01/18 15:57 Neg (Negative) 11/01/18 15:57 < 2.0 mg/dL (<2.0) 11/01/18 15:57 Ur Leukocyte Esterase Mod (Negative) 11/01/18 15:57 > 182.0 /HPF (0.0-6.0) H 11/01/18 15:57 40.0 /HPF (0.0-6.0) 11/01/18 15:57 U Epithel Cells (Auto) 8.0 /HPF (0-13.0) 11/01/18 15:57 3+ /HPF 11/01/18 15:57 3+ /HPF 11/01/18 15:57 Random Vancomycin 13.9 ug/mL (0-40.0) 11/02/18 05:05 Blood Type O POSITIVE 11/03/18 12:51 Antibody Screen Negative 11/03/18 12:51 Crossmatch See Detail 11/03/18 12:51 Active Medications - Current Medications Current Medications: Generic Name Dose Route Start Last Admin Trade Name Freq PRN Reason Stop Dose Admin Acetaminophen/Hydrocodone Bitart 1 each 11/15/18 04:51 11/22/18 21:33 [place] 5/325 PO 1 each Q4H PRN Administration Pain, Moderate (4-6) Albuterol 2.5 mg 11/01/18 17:15 Proventil IH Q3HRT PRN Shortness Of Breath Albuterol/Ipratropium 1 ampul 11/09/18 20:00 11/25/18 08:44 Duoneb *Not For Prn Use* IH 1 ampul BIDRT NORA Administration Lipase/Protease/Amylase 1 each 11/03/18 17:12 11/20/18 15:19 Pancrenomi Moore 10,500 Unit FEEDTUBE 1 each PRN PRN Administration For Clogged Feeding Tube Ascorbic Acid 500 mg 11/01/18 22:00 11/25/18 10:38 Vitamin C FEEDTUBE 500 mg BID NORA Administration Atorvastatin Calcium 40 mg 11/01/18 22:00 11/24/18 21:40 Lipitor FEEDTUBE 40 mg QHS NORA Administration Carvedilol 6.25 mg 11/08/18 13:00 11/25/18 10:38 Coreg PO 6.25 mg BID NORA Administration Clonidine HCl 0.2 mg 11/05/18 17:18 11/19/18 16:33 Catapres-Tts Patch TD 0.2 mg Tu NORA Administration Enoxaparin Sodium 40 mg 11/02/18 10:00 11/25/18 10:37 Lovenox SUB-Q 40 mg QDAY@1000 NORA Administration Hydralazine HCl 10 mg 11/25/18 22:00 Apresoline PO Q12HR NORA Daptomycin 400 mg/ Sodium 100 mls @ 200 mls/hr 11/25/18 11:00 Chloride IV 12/16/18 23:59 Q24H [facility] Protocol Levetiracetam 500 mg 11/01/18 22:00 11/25/18 10:37 Keppra FEEDTUBE 500 mg BID NORA Administration Morphine Sulfate 2 mg 11/01/18 17:15 11/25/18 11:13 Morphine IV 2 mg Q4H PRN Administration Pain, Moderate (4-6) Multivitamins 5 ml 11/02/18 10:00 11/25/18 10:37 Centrum Liq FEEDTUBE 5 ml QDAY NORA Administration Simple Syrup 15 ml 11/03/18 17:12 11/16/18 13:40 Simple Syrup FEEDTUBE 15 ml PRN PRN Administration Hypoglycemia Simple Syrup 30 ml 11/03/18 17:12 Simple Syrup FEEDTUBE PRN PRN Hypoglycemia Sodium Bicarbonate 325 mg 11/03/18 17:12 11/16/18 13:36 Sodium Bicarbonate FEEDTUBE 325 mg PRN PRN Administration For Clogged Feeding Tube Sodium Chloride 10 ml 11/01/18 22:00 11/25/18 10:38 Sodium Chloride Flush Syringe 10 Ml IV 10 ml BID NORA Administration Sodium Chloride 10 ml 11/01/18 17:15 11/23/18 04:05 Sodium Chloride Flush Syringe 10 Ml IV 10 ml PRN PRN Administration LINE FLUSH Sodium Hypochlorite 1 applic 11/08/18 11:00 11/25/18 10:40 Dakin's Half Strength TP 1 applicatio BID NORA Administration Zinc Sulfate 220 mg 11/02/18 10:00 11/25/18 10:37 Zinc Sulfate PO 220 mg DAILY NORA Administration Nutrition/Malnutrition Assess - Dietary Evaluation Nutrition/Malnutrition Findings: Nutrition Notes Start: 11/04/18 16:00 Freq: Status: Active Protocol: Document 11/22/18 19:12 RM (Rec: 11/22/18 19:14 [id number]) Nutrition Notes Initial or Follow up Reassessment Current Diagnosis COPD,Diabetes,Sepsis, Hypertension,Heart Failure, Stroke Other Pertinent Diagnosis Sacral PUs, UTI, Dementia Current Diet Nepro at 40 ml/hr Labs/Tests Reviewed Pertinent Medications Reviewed Height 5 ft 8 in Weight 63.1 kg [place] Body Weight (kg) 70.00 BMI 21.1 Subjective/Other Information Pt being cleaned at time of visit. Per nurse pt is tolerating TF at goal rate. Percent of energy/protein needs met: 100%/100% Burn Absent Trauma Absent #1 Nutrition Diagnosis Inadequate oral intake Diagnosis Progress(for reassessment Continues documentation) Is patient on ventilator? No Is Patient Ambulatory and/or Out of Bed No REE-([facility]-confined to bed) 9717.951 Calculation Used for Recommendations [facility] Additional Notes Protein Needs: 76-95g (1.2-1. 5g/kg) Fluid Needs: 1 ml/kcal Nutrition Intervention Nutrition Support: Nepro 1.8 at 40 ml/hr. Water flush of 200 mls q 4 hrs . Kcal 1,728 Protein (gm) 78 Fluid (mL) 698 Goal #1 TF tolerance Goal #2 Continue to meet at least 75% of calorie and protein needs via TF Anticipated Discharge Needs: Unable to determine at this time Follow-Up By: 11/29/18 Additional Comments Follow for TF tolerance
--- NOTE | 2018-11-25 13:50 | Progress Note ---
Assessment and Plan Assessment and plan: 67-year-old male with history of HTN, CVA, Obstructive Uropathy, Diastolic CHF, Contracture, Sacral Decubitus Ulcers, [place], DM, OA, Seizure Disorder, COPD, Dementia, BPH presents to ED for evaluation. Pt is stuporous and unable to provide history. Pt history taken from ED Staff, EMS, and SNF Staff. As per staff, the patient was found to have respiratory distress upon evaluation this morning. Pt found to have pulse oximetry in the 80's. EMS notified and patient subsequently transported to [facility] for further care and evaluation. Pt seen and evaluated in ED and found to have UTI, Sepsis, Encephalopathy as well as Acute Hypoxemic Respiratory Failure. Pt initiated on NIPPV in ED with improvement in symptoms. Pt initially admitted to [facility] now transferred to [facility]. patient diagnosed with sepsis due to MRSA, Staph hemolyticus put on Daptomycin iv to continue until 12/16/18. He has been stable for discharge, but has hgb 7.4 today so will transfuse 1 Unit PRBC. Otherwise stable to dc when bed available. Extensive discussion with family about patients poor prognosis surgery consulted did multiple debridements ID following, Pulmonary status improved Continue isolation care, Chaudhary placed by Urology please do not remove Discharge pending on isolation room availability at the skilled nursing Paroxysmal SVTs -Cardiology was consulted during this admission -Patient was started on Coreg 6.25 and twice a day - We'll monitor potassium, magnesium NSVT 21 beats vtach 11/22 Cardiology reconsulted, conservative management and med adjustment made. Sepsis with MRSA bacteremia, UTI, Infected decub ulcer POA, osteomyelitis poa - Patient had being multiple admission in the past including this one for similar situation - Previously discussed multiple time with family for hospice placement but they refused - Patient was previously discharged with vancomycin for MRSA bacteremia - He readmitted this time while he was on vancomycin and blood cultures still growing MRSA - Changed antibiotic to daptomycin per ID - at discharge will need daptomycin 400 mg IV q day for 6 weeks until 12/16/2018, Order placed with case management Sacral pressure ulcer -infected. POA Wound care nurse following. Debridement done by Dr Man Amputation recommended and the daughter refused Acute on chronic encephalopathy - Due to sepsis and underlying dementia - Continue to provide supportive care Acute hypoxemic Respiratory failure Likely from underlying CHF exacerbation and profound sepsis cont Supplemental oxygen, nebulizer therapy, mgt per pulmonology CHFeEF 30-35% with exacerbation, poa - Continue to monitor in's and O's, daily weight, aspirin and statin and beta chandan, patient is allergic to ACEI Anemia of chronic disease Transfused one unit PRBC hemoglobin is stable Hypernatremia. Resolved started on D5W on 11/20, now discontinued anemia, Hgb 7.4 Transfuse 1 unit PRBC today Seizure Continue current therapy, seizure precautions. BPH status post TURP and obstructive uropathy Continue Chaudhary catherter placed by urology during this admission Chronic Dementia supportive care DVT prophylaxis Prophylactic lovenox POOR PROGNOSIS Disposition; Arranged family meeting on 11/14 with case coordinator patient's daughters, granddaughter and ex- along with Dr. Wynne. Family still wants to continue the antibiotic treatment, but they mention if antibiotic treatment fails this time and patient continued to spike fever or remains bacteremic with daptomycin then they would possibly consider hospice. Family also considering for DO NOT RESUSCITATE and does not want any life support for the patient, but they did not signed the DNR form yet. Patient will be discharged back to the skilled nursing/[facility] as soon as isolation room is available. History Interval history: had debridement multiple decubitus ulcers again on 11/20 21 beats vtach morning of 11/22, resolved No new fever Hospitalist Physical - Physical exam Narrative exam: Gen: Not in acute distress. lying in bed Head exam is unremarkable. No scleral icterus . Neck is without jugular venous distension, thyromegaly, or carotid bruits. Lungs are clear to auscultation. Cardiac exam reveals regular rate and Rhythm. First and second heart sounds normal. No murmurs, rubs or gallops. Abdominal exam reveals non tender, not distended,normal bowel sounds, no masses, Extremities contracted extremities. MACHINE II COREMAKER: Awake,alert, contracted extremities Skin; multiple decubitus ulcers, including the sacrum , lower extremities bilateral. - Constitutional Vitals: Temp Pulse Resp BP Pulse Ox 98.5 F 78 18 148/79 98 11/25/18 11:11/25/18 11:11/25/18 11:09 11/25/18 11:11/25/18 11:09 General appearance: Present: no acute distress Results - Labs CBC & Chem 7: 11/25/18 11:28 11/25/18 05:25 Labs: Laboratory Last Values WBC 8.1 K/mm3 (4.5-11.0) 11/25/18 05:25 RBC 2.48 M/mm3 (3.65-5.03) L 11/25/18 05:25 Hgb 7.4 gm/dl (11.8-15.2) L 11/25/18 11:28 Hct 23.0 % (35.5-45.6) L 11/25/18 11:28 MCV 86 fl (84-94) 11/25/18 05:25 MCH 28 pg (28-32) 11/25/18 05:25 MCHC 32 % (32-34) 11/25/18 05:25 RDW 17.7 % (13.2-15.2) H 11/25/18 05:25 Plt Count 435 K/mm3 (140-440) 11/25/18 05:25 Lymph % (Auto) 9.0 % (13.4-35.0) L 11/15/18 07:13 [place] % (Auto) 7.5 % (0.0-7.3) H 11/15/18 07:13 Eos % (Auto) 3.9 % (0.0-4.3) 11/15/18 07:13 Baso % (Auto) 0.8 % (0.0-1.8) 11/15/18 07:13 Lymph # 1.2 K/mm3 (1.2-5.4) 11/15/18 07:13 [place] # 1.0 K/mm3 (0.0-0.8) H 11/15/18 07:13 Eos # 0.5 K/mm3 (0.0-0.4) H 11/15/18 07:13 Baso # 0.1 K/mm3 (0.0-0.1) 11/15/18 07:13 Seg Neutrophils % 78.8 % (40.0-70.0) H 11/15/18 07:13 Seg Neutrophils # 10.4 K/mm3 (1.8-7.7) H 11/15/18 07:13 PT 16.3 Sec. (12.2-14.9) H 11/01/18 14:50 INR 1.35 (0.87-1.13) H 11/01/18 14:50 POC ABG pH 7.494 (7.35-7.45) H 11/01/18 15:27 POC ABG pCO2 34.5 (35-45) L 11/01/18 15:27 POC ABG pO2 139 (80-105) H 11/01/18 15:27 POC ABG HCO3 26.5 (22-26 mml/L) 11/01/18 15:27 POC ABG Total CO2 28 (23-27mmol/L) 11/01/18 15:27 POC ABG O2 Sat 99 11/01/18 15:27 POC ABG Base Excess 3 ((-2) - (+3)mmol/L) 11/01/18 15:27 VBG pH 7.499 (7.320-7.420) H 11/01/18 14:50 50 % 11/01/18 15:27 Sodium 140 mmol/L (137-145) 11/25/18 05:25 Potassium 3.9 mmol/L (3.6-5.0) 11/25/18 05:25 Chloride 108.8 mmol/L (98-107) H 11/25/18 05:25 Carbon Dioxide 22 mmol/L (22-30) 11/25/18 05:25 13 mmol/L 11/25/18 05:25 BUN 30 mg/dL (9-20) H 11/25/18 05:25 0.7 mg/dL (0.8-1.5) L 11/25/18 05:25 Estimated GFR > 60 ml/min 11/25/18 05:25 43 % 11/25/18 05:25 Glucose 112 mg/dL (75-100) H 11/25/18 05:25 POC Glucose 127 (70-105) H 11/25/18 11:15 Lactic Acid 1.80 mmol/L (0.7-2.0) 11/01/18 14:50 Calcium 9.5 mg/dL (8.4-10.2) 11/25/18 05:25 Phosphorus 2.90 mg/dL (2.5-4.5) 11/22/18 09:43 Magnesium 2.50 mg/dL (1.7-2.3) H 11/23/18 05:56 0.30 mg/dL (0.1-1.2) 11/01/18 14:50 AST 90 units/L (5-40) H 11/01/18 14:50 ALT 77 units/L (7-56) H 11/01/18 14:50 350 units/L (35-129) H 11/01/18 14:50 53 units/L (55-170) L 11/19/18 05:35 NT-Pro-B Natriuret Pep 6776 pg/mL (0-900) H 11/01/18 14:50 7.9 g/dL (6.3-8.2) 11/01/18 14:50 1.6 g/dL (3.9-5) L 11/01/18 14:50 0.3 % 11/01/18 14:50 Yellow (Yellow) 11/01/18 15:57 Turbid (Clear) 11/01/18 15:57 6.0 (5.0-7.0) 11/01/18 15:57 Ur Specific [place] 1.016 (1.003-1.030) 11/01/18 15:57 100 mg/dl mg/dL (Negative) 11/01/18 15:57 Neg mg/dL (Negative) 11/01/18 15:57 Neg mg/dL (Negative) 11/01/18 15:57 Neg (Negative) 11/01/18 15:57 Neg (Negative) 11/01/18 15:57 Neg (Negative) 11/01/18 15:57 < 2.0 mg/dL (<2.0) 11/01/18 15:57 Ur Leukocyte Esterase Mod (Negative) 11/01/18 15:57 > 182.0 /HPF (0.0-6.0) H 11/01/18 15:57 40.0 /HPF (0.0-6.0) 11/01/18 15:57 U Epithel Cells (Auto) 8.0 /HPF (0-13.0) 11/01/18 15:57 3+ /HPF 11/01/18 15:57 3+ /HPF 11/01/18 15:57 Random Vancomycin 13.9 ug/mL (0-40.0) 11/02/18 05:05 Blood Type O POSITIVE 11/03/18 12:51 Antibody Screen Negative 11/03/18 12:51 Crossmatch See Detail 11/03/18 12:51 Active Medications - Current Medications Current Medications: Generic Name Dose Route Start Last Admin Trade Name Freq PRN Reason Stop Dose Admin Acetaminophen/Hydrocodone Bitart 1 each 11/15/18 04:51 11/22/18 21:33 [place] 5/325 PO 1 each Q4H PRN Administration Pain, Moderate (4-6) Albuterol 2.5 mg 11/01/18 17:15 Proventil IH Q3HRT PRN Shortness Of Breath Albuterol/Ipratropium 1 ampul 11/09/18 20:00 11/25/18 08:44 Duoneb *Not For Prn Use* IH 1 ampul BIDRT NORA Administration Lipase/Protease/Amylase 1 each 11/03/18 17:12 11/20/18 15:19 Pancreazadela [place] 10,500 Unit FEEDTUBE 1 each PRN PRN Administration For Clogged Feeding Tube Ascorbic Acid 500 mg 11/01/18 22:00 11/25/18 10:38 Vitamin C FEEDTUBE 500 mg BID NORA Administration Atorvastatin Calcium 40 mg 11/01/18 22:00 11/24/18 21:40 Lipitor FEEDTUBE 40 mg QHS NORA Administration Carvedilol 6.25 mg 11/08/18 13:00 11/25/18 10:38 Coreg PO 6.25 mg BID NORA Administration Clonidine HCl 0.2 mg 11/05/18 17:18 11/19/18 16:33 Catapres-Tts Patch TD 0.2 mg Tu NORA Administration Enoxaparin Sodium 40 mg 11/02/18 10:00 11/25/18 10:37 Lovenox SUB-Q 40 mg QDAY@1000 NORA Administration Hydralazine HCl 10 mg 11/25/18 22:00 Apresoline PO Q12HR NORA Daptomycin 400 mg/ Sodium 100 mls @ 200 mls/hr 11/25/18 11:00 Chloride IV 12/16/18 23:59 Q24H NORA Protocol Levetiracetam 500 mg 11/01/18 22:00 11/25/18 10:37 Keppra FEEDTUBE 500 mg BID NORA Administration Morphine Sulfate 2 mg 11/01/18 17:15 11/25/18 11:13 Morphine IV 2 mg Q4H PRN Administration Pain, Moderate (4-6) Multivitamins 5 ml 11/02/18 10:00 11/25/18 10:37 Centrum Liq FEEDTUBE 5 ml QDAY NORA Administration Simple Syrup 15 ml 11/03/18 17:12 11/16/18 13:40 Simple Syrup FEEDTUBE 15 ml PRN PRN Administration Hypoglycemia Simple Syrup 30 ml 11/03/18 17:12 Simple Syrup FEEDTUBE PRN PRN Hypoglycemia Sodium Bicarbonate 325 mg 11/03/18 17:12 11/16/18 13:36 Sodium Bicarbonate FEEDTUBE 325 mg PRN PRN Administration For Clogged Feeding Tube Sodium Chloride 10 ml 11/01/18 22:00 11/25/18 10:38 Sodium Chloride Flush Syringe 10 Ml IV 10 ml BID NORA Administration Sodium Chloride 10 ml 11/01/18 17:15 11/23/18 04:05 Sodium Chloride Flush Syringe 10 Ml IV 10 ml PRN PRN Administration LINE FLUSH Sodium Hypochlorite 1 applic 11/08/18 11:00 11/25/18 10:40 Dakin's Half Strength TP 1 applicatio BID NORA Administration Zinc Sulfate 220 mg 11/02/18 10:00 11/25/18 10:37 Zinc Sulfate PO 220 mg DAILY NORA Administration Nutrition/Malnutrition Assess - Dietary Evaluation Nutrition/Malnutrition Findings: Nutrition Notes Start: 11/04/18 16:00 Freq: Status: Active Protocol: Document 11/22/18 19:12 RM (Rec: 11/22/18 19:14 RM [id number]) Nutrition Notes Initial or Follow up Reassessment Current Diagnosis COPD,Diabetes,Sepsis, Hypertension,Heart Failure, Stroke Other Pertinent Diagnosis Sacral PUs, UTI, Dementia Current Diet Nepro at 40 ml/hr Labs/Tests Reviewed Pertinent Medications Reviewed Height 5 ft 8 in Weight 63.1 kg [place] Body Weight (kg) 70.00 BMI 21.1 Subjective/Other Information Pt being cleaned at time of visit. Per nurse pt is tolerating TF at goal rate. Percent of energy/protein needs met: 100%/100% Burn Absent Trauma Absent #1 Nutrition Diagnosis Inadequate oral intake Diagnosis Progress(for reassessment Continues documentation) Is patient on ventilator? No Is Patient Ambulatory and/or Out of Bed No REE-([facility]-confined to bed) 3280.468 Calculation Used for Recommendations [facility] Additional Notes Protein Needs: 76-95g (1.2-1. 5g/kg) Fluid Needs: 1 ml/kcal Nutrition Intervention Nutrition Support: Nepro 1.8 at 40 ml/hr. Water flush of 200 mls q 4 hrs . Kcal 1,728 Protein (gm) 78 Fluid (mL) 698 Goal #1 TF tolerance Goal #2 Continue to meet at least 75% of calorie and protein needs via TF Anticipated Discharge Needs: Unable to determine at this time Follow-Up By: 11/29/18 Additional Comments Follow for TF tolerance
[2018-11-25] MEDS ORDERED: NACL 0.9% 500 ML 500 ML IV ONE ×2 (13:53→19:00)
[2018-11-25] MEDS ORDERED: WATER FOR INJ Sterile (PF) 10 ML ONE (15:10)
[2018-11-25] MEDS ORDERED: CATHFLO IV ONE ×2 (16:07→16:10)
[2018-11-25] MEDS: NACL 0.9% IV SCH (16:08)
[2018-11-25] MEDS: DAPTOMYCIN IV SCH (16:08)
--- NOTE | 2018-11-25 18:12 | Progress Note ---
Assessment and Plan Patient weak and contracted. Patient is awake and resting on 2L O2 via nasal canula. No acute respiratory distress. O2 sat 98%. Patient is afebrile. BP 148/79. No change in general condition - Patient Problems (1) Respiratory failure Current Visit: Yes Status: Acute Qualifiers: Chronicity: acute Respiratory failure complication: hypoxia Qualified Code(s): J96.01 - Acute respiratory failure with hypoxia Plan to address problem: Continue O2 supplementation 2 L via nasal canula. Albuterol and Atrovent treatment q6h. Patient is on Diptomycine as per infectious diseases. Continue SQ Levonox. Recommend GI prophylexis. (2) Seizure Current Visit: Yes Status: Acute Plan to address problem: Management as per neurologist. (3) Sepsis Current Visit: Yes Status: Acute Plan to address problem: Patient is on Daptomycine as per infectious diseases. (4) UTI (urinary tract infection) Current Visit: Yes Status: Acute Qualifiers: Encounter type: initial encounter Plan to address problem: Patient is on Daptomycine as per infectious diseases. (5) ARF (acute renal failure) with tubular necrosis Current Visit: No Status: Acute Plan to address problem: Management as per Nephrology. Subjective Date of service: 11/25/18 Principal diagnosis: Severe Sepsis; Ac. Hypoxemic Resp failure; Anemia; Seizure; UTI; BPH Interval history: Patient weak and contracted. Patient is awake and resting on 2L O2 via nasal canula. No acute respiratory distress. O2 sat 98%. Patient is afebrile. BP 148/79. No change in general condition. Objective Vital Signs - 12hr 11/25/18 11/25/18 11/25/18 08:29 08:44 08:57 Temperature 98.2 F Pulse Rate 72 Pulse Rate [ 71 72 Anterior Bilateral Throughout] Pulse Rate [ Right Radial] Respiratory 18 Rate Respiratory 18 18 Rate [Anterior Bilateral Throughout] Blood Pressure 130/58 O2 Sat by Pulse 100 100 Oximetry 11/25/18 11/25/18 11/25/18 10:00 10:38 11:09 Temperature 98.5 F Pulse Rate 69 72 78 Pulse Rate [ Anterior Bilateral Throughout] Pulse Rate [ 69 Right Radial] Respiratory 18 18 Rate Respiratory Rate [Anterior Bilateral Throughout] Blood Pressure 130/58 148/79 O2 Sat by Pulse 98 Oximetry Constitutional: no acute distress, alert, other (Patient is weak. ) Eyes: non-icteric ENT: oropharynx moist Neck: no lymphadenopathy, no JVD, other (mild stiffness / contracture) Effort: mildly labored Ascultation: Bilateral: diminished breath sounds, rhonchi Percussion: Bilateral: not dull Cardiovascular: regular rate and rhythm Gastrointestinal: normoactive bowel sounds, soft, non-tender, non-distended Integumentary: rash Extremities: no cyanosis, no edema, pulses normal, other (Patient has pressure ulcer at multiple areas, including sacral area.) Neurologic: non-focal exam, pupils equal and round, CN II-XII normal, other (+ contractures) Psychiatric: mood appropriate, affect normal CBC and BMP: 11/25/18 11:28 11/25/18 05:25 ABG, PT/INR, D-dimer: ABG POC ABG pH 7.494 (7.35-7.45) H 11/01/18 15:27 POC ABG pCO2 34.5 (35-45) L 11/01/18 15:27 POC ABG pO2 139 (80-105) H 11/01/18 15:27 POC ABG HCO3 26.5 (22-26 mml/L) 11/01/18 15:27 POC ABG Total CO2 28 (23-27mmol/L) 11/01/18 15:27 POC ABG O2 Sat 99 11/01/18 15:27 PT/INR, D-dimer PT 16.3 Sec. (12.2-14.9) H 11/01/18 14:50 INR 1.35 (0.87-1.13) H 11/01/18 14:50 Abnormal lab findings: Abnormal Labs 11/01/18 11/01/18 11/01/18 14:50 14:50 14:50 WBC 15.3 H RBC 2.76 L Hgb 7.9 L Hct 23.5 L MCH MCHC RDW 18.3 H Plt Count 567 H Lymph % (Auto) 6.5 L [place] % (Auto) 8.5 H Eos % (Auto) Lymph # 1.0 L [place] # 1.3 H Eos # Seg Neutrophils % 83.4 H Seg Neutrophils # 12.7 H PT 16.3 H INR 1.35 H POC ABG pH POC ABG pCO2 POC ABG pO2 VBG pH Sodium Potassium Chloride Carbon Dioxide BUN 49 H Creatinine Glucose 132 H POC Glucose Magnesium AST 90 H ALT 77 H Alkaline Phosphatase 350 H Total Creatine Kinase NT-Pro-B Natriuret Pep Albumin 1.6 L Urine WBC (Auto) Crossmatch 11/01/18 11/01/18 11/01/18 14:50 14:50 15:27 WBC RBC Hgb Hct MCH MCHC RDW Plt Count Lymph % (Auto) [place] % (Auto) Eos % (Auto) Lymph # [place] # Eos # Seg Neutrophils % Seg Neutrophils # PT INR POC ABG pH 7.494 H POC ABG pCO2 34.5 L POC ABG pO2 139 H VBG pH 7.499 H Sodium Potassium Chloride Carbon Dioxide BUN Creatinine Glucose POC Glucose Magnesium AST ALT Alkaline Phosphatase Total Creatine Kinase NT-Pro-B Natriuret Pep 6776 H Albumin Urine WBC (Auto) Crossmatch 11/01/18 11/03/18 11/03/18 15:57 03:41 03:41 WBC 12.8 H RBC 2.55 L Hgb 6.9 L Hct 22.2 L MCH 27 L MCHC 31 L RDW 17.9 H Plt Count 519 H Lymph % (Auto) [place] % (Auto) Eos % (Auto) Lymph # [place] # Eos # Seg Neutrophils % Seg Neutrophils # PT INR POC ABG pH POC ABG pCO2 POC ABG pO2 VBG pH Sodium 147 H Potassium Chloride 110.3 H Carbon Dioxide BUN 55 H Creatinine Glucose POC Glucose Magnesium AST ALT Alkaline Phosphatase Total Creatine Kinase NT-Pro-B Natriuret Pep Albumin Urine WBC (Auto) > 182.0 H Crossmatch 11/03/18 11/04/18 11/04/18 12:51 05:12 05:12 WBC 11.5 H RBC 2.94 L Hgb 8.3 L Hct 25.3 L MCH MCHC RDW 17.3 H Plt Count 514 H Lymph % (Auto) [place] % (Auto) Eos % (Auto) Lymph # [place] # Eos # Seg Neutrophils % Seg Neutrophils # PT INR POC ABG pH POC ABG pCO2 POC ABG pO2 VBG pH Sodium 147 H Potassium Chloride 112.4 H Carbon Dioxide BUN 52 H Creatinine Glucose POC Glucose Magnesium AST ALT Alkaline Phosphatase Total Creatine Kinase NT-Pro-B Natriuret Pep Albumin Urine WBC (Auto) Crossmatch See Detail 11/05/18 11/05/18 11/06/18 04:50 04:50 05:42 WBC RBC 3.03 L 2.80 L Hgb 8.7 L 7.9 L Hct 26.6 L 24.7 L MCH MCHC RDW 17.1 H 17.0 H Plt Count 502 H 478 H Lymph % (Auto) 10.4 L [place] % (Auto) 8.6 H Eos % (Auto) 4.7 H Lymph # 1.0 L [place] # Eos # 0.5 H Seg Neutrophils % 75.6 H Seg Neutrophils # PT INR POC ABG pH POC ABG pCO2 POC ABG pO2 VBG pH Sodium 149 H Potassium Chloride 114.4 H Carbon Dioxide 21 L BUN 50 H Creatinine Glucose 108 H POC Glucose Magnesium AST ALT Alkaline Phosphatase Total Creatine Kinase NT-Pro-B Natriuret Pep Albumin Urine WBC (Auto) Crossmatch 11/06/18 11/11/18 11/12/18 05:42 18:54 00:22 WBC RBC Hgb Hct MCH MCHC RDW Plt Count Lymph % (Auto) [place] % (Auto) Eos % (Auto) Lymph # [place] # Eos # Seg Neutrophils % Seg Neutrophils # PT INR POC ABG pH POC ABG pCO2 POC ABG pO2 VBG pH Sodium 149 H Potassium Chloride 113.4 H Carbon Dioxide BUN 50 H Creatinine Glucose 121 H POC Glucose 114 H 123 H Magnesium AST ALT Alkaline Phosphatase Total Creatine Kinase NT-Pro-B Natriuret Pep Albumin Urine WBC (Auto) Crossmatch 11/12/18 11/12/18 11/13/18 06:49 11:35 06:34 WBC RBC Hgb Hct MCH MCHC RDW Plt Count Lymph % (Auto) [place] % (Auto) Eos % (Auto) Lymph # [place] # Eos # Seg Neutrophils % Seg Neutrophils # PT INR POC ABG pH POC ABG pCO2 POC ABG pO2 VBG pH Sodium Potassium Chloride Carbon Dioxide BUN Creatinine Glucose POC Glucose 129 H 123 H 128 H Magnesium AST ALT Alkaline Phosphatase Total Creatine Kinase NT-Pro-B Natriuret Pep Albumin Urine WBC (Auto) Crossmatch 11/13/18 11/13/18 11/13/18 09:26 09:26 15:13 WBC RBC 3.08 L Hgb 8.6 L Hct 27.3 L MCH MCHC 31 L RDW 18.3 H Plt Count 504 H Lymph % (Auto) 11.7 L [place] % (Auto) 7.5 H Eos % (Auto) 7.0 H Lymph # [place] # Eos # 0.7 H Seg Neutrophils % 72.9 H Seg Neutrophils # PT INR POC ABG pH POC ABG pCO2 POC ABG pO2 VBG pH Sodium 153 H Potassium 6.3 H* 5.8 H Chloride 122.3 H Carbon Dioxide 21 L BUN 38 H Creatinine Glucose 112 H POC Glucose Magnesium AST ALT Alkaline Phosphatase Total Creatine Kinase NT-Pro-B Natriuret Pep Albumin Urine WBC (Auto) Crossmatch 11/13/18 11/13/18 11/14/18 22:10 23:45 13:17 WBC RBC Hgb Hct MCH MCHC RDW Plt Count Lymph % (Auto) [place] % (Auto) Eos % (Auto) Lymph # [place] # Eos # Seg Neutrophils % Seg Neutrophils # PT INR POC ABG pH POC ABG pCO2 POC ABG pO2 VBG pH Sodium 155 H Potassium 5.3 H Chloride 122.3 H Carbon Dioxide BUN 35 H Creatinine Glucose 113 H POC Glucose 111 H 142 H Magnesium AST ALT Alkaline Phosphatase Total Creatine Kinase NT-Pro-B Natriuret Pep Albumin Urine WBC (Auto) Crossmatch 11/14/18 11/15/18 11/15/18 19:08 00:31 06:45 WBC RBC Hgb Hct MCH MCHC RDW Plt Count Lymph % (Auto) [place] % (Auto) Eos % (Auto) Lymph # [place] # Eos # Seg Neutrophils % Seg Neutrophils # PT INR POC ABG pH POC ABG pCO2 POC ABG pO2 VBG pH Sodium Potassium Chloride Carbon Dioxide BUN Creatinine Glucose POC Glucose 116 H 125 H 131 H Magnesium AST ALT Alkaline Phosphatase Total Creatine Kinase NT-Pro-B Natriuret Pep Albumin Urine WBC (Auto) Crossmatch 11/15/18 11/15/18 11/15/18 07:13 07:13 19:03 WBC 13.2 H RBC 2.81 L Hgb 7.8 L Hct 24.5 L MCH MCHC RDW 18.2 H Plt Count 454 H Lymph % (Auto) 9.0 L [place] % (Auto) 7.5 H Eos % (Auto) Lymph # [place] # 1.0 H Eos # 0.5 H Seg Neutrophils % 78.8 H Seg Neutrophils # 10.4 H PT INR POC ABG pH POC ABG pCO2 POC ABG pO2 VBG pH Sodium 149 H Potassium 5.2 H Chloride 117.2 H Carbon Dioxide BUN 38 H Creatinine Glucose 114 H POC Glucose 141 H Magnesium AST ALT Alkaline Phosphatase Total Creatine Kinase NT-Pro-B Natriuret Pep Albumin Urine WBC (Auto) Crossmatch 11/16/18 11/16/18 11/16/18 01:15 01:15 06:45 WBC RBC Hgb Hct MCH MCHC RDW Plt Count Lymph % (Auto) [place] % (Auto) Eos % (Auto) Lymph # [place] # Eos # Seg Neutrophils % Seg Neutrophils # PT INR POC ABG pH POC ABG pCO2 POC ABG pO2 VBG pH Sodium Potassium 5.3 H Chloride Carbon Dioxide BUN Creatinine Glucose POC Glucose 129 H Magnesium 2.60 H AST ALT Alkaline Phosphatase Total Creatine Kinase NT-Pro-B Natriuret Pep Albumin Urine WBC (Auto) Crossmatch 11/16/18 11/16/18 11/17/18 13:20 18:02 00:16 WBC RBC Hgb Hct MCH MCHC RDW Plt Count Lymph % (Auto) [place] % (Auto) Eos % (Auto) Lymph # [place] # Eos # Seg Neutrophils % Seg Neutrophils # PT INR POC ABG pH POC ABG pCO2 POC ABG pO2 VBG pH Sodium Potassium Chloride Carbon Dioxide BUN Creatinine Glucose POC Glucose 130 H 127 H 120 H Magnesium AST ALT Alkaline Phosphatase Total Creatine Kinase NT-Pro-B Natriuret Pep Albumin Urine WBC (Auto) Crossmatch 11/17/18 11/17/18 11/17/18 05:48 08:02 08:02 WBC RBC Hgb 7.5 L Hct 23.5 L MCH MCHC RDW Plt Count Lymph % (Auto) [place] % (Auto) Eos % (Auto) Lymph # [place] # Eos # Seg Neutrophils % Seg Neutrophils # PT INR POC ABG pH POC ABG pCO2 POC ABG pO2 VBG pH Sodium Potassium Chloride 110.1 H Carbon Dioxide 21 L BUN 38 H Creatinine Glucose 121 H POC Glucose 130 H Magnesium AST ALT Alkaline Phosphatase Total Creatine Kinase NT-Pro-B Natriuret Pep Albumin Urine WBC (Auto) Crossmatch 11/17/18 11/17/18 11/18/18 12:17 16:48 06:00 WBC RBC Hgb Hct MCH MCHC RDW Plt Count Lymph % (Auto) [place] % (Auto) Eos % (Auto) Lymph # [place] # Eos # Seg Neutrophils % Seg Neutrophils # PT INR POC ABG pH POC ABG pCO2 POC ABG pO2 VBG pH Sodium Potassium Chloride Carbon Dioxide BUN Creatinine Glucose POC Glucose 140 H 120 H 137 H Magnesium AST ALT Alkaline Phosphatase Total Creatine Kinase NT-Pro-B Natriuret Pep Albumin Urine WBC (Auto) Crossmatch 11/19/18 11/19/18 11/19/18 00:20 05:35 06:11 WBC RBC Hgb Hct MCH MCHC RDW Plt Count Lymph % (Auto) [place] % (Auto) Eos % (Auto) Lymph # [place] # Eos # Seg Neutrophils % Seg Neutrophils # PT INR POC ABG pH POC ABG pCO2 POC ABG pO2 VBG pH Sodium Potassium Chloride Carbon Dioxide BUN Creatinine Glucose POC Glucose 111 H 126 H Magnesium AST ALT Alkaline Phosphatase Total Creatine Kinase 53 L NT-Pro-B Natriuret Pep Albumin Urine WBC (Auto) Crossmatch 11/19/18 11/19/18 11/20/18 11:37 23:43 06:52 WBC RBC Hgb Hct MCH MCHC RDW Plt Count Lymph % (Auto) [place] % (Auto) Eos % (Auto) Lymph # [place] # Eos # Seg Neutrophils % Seg Neutrophils # PT INR POC ABG pH POC ABG pCO2 POC ABG pO2 VBG pH Sodium Potassium Chloride Carbon Dioxide BUN Creatinine Glucose POC Glucose 139 H 145 H 125 H Magnesium AST ALT Alkaline Phosphatase Total Creatine Kinase NT-Pro-B Natriuret Pep Albumin Urine WBC (Auto) Crossmatch 11/20/18 11/20/18 11/20/18 09:55 09:55 11:49 WBC RBC 3.04 L Hgb 8.4 L Hct 26.1 L MCH MCHC RDW 17.5 H Plt Count Lymph % (Auto) [place] % (Auto) Eos % (Auto) Lymph # [place] # Eos # Seg Neutrophils % Seg Neutrophils # PT INR POC ABG pH POC ABG pCO2 POC ABG pO2 VBG pH Sodium 149 H Potassium Chloride 114.5 H Carbon Dioxide 21 L BUN 35 H Creatinine Glucose 127 H POC Glucose 150 H Magnesium AST ALT Alkaline Phosphatase Total Creatine Kinase NT-Pro-B Natriuret Pep Albumin Urine WBC (Auto) Crossmatch 11/20/18 11/20/18 11/21/18 18:02 23:49 06:14 WBC RBC Hgb Hct MCH MCHC RDW Plt Count Lymph % (Auto) [place] % (Auto) Eos % (Auto) Lymph # [place] # Eos # Seg Neutrophils % Seg Neutrophils # PT INR POC ABG pH POC ABG pCO2 POC ABG pO2 VBG pH Sodium Potassium Chloride Carbon Dioxide BUN Creatinine Glucose POC Glucose 131 H 137 H 133 H Magnesium AST ALT Alkaline Phosphatase Total Creatine Kinase NT-Pro-B Natriuret Pep Albumin Urine WBC (Auto) Crossmatch 11/21/18 11/21/18 11/21/18 10:00 12:09 18:04 WBC RBC Hgb Hct MCH MCHC RDW Plt Count Lymph % (Auto) [place] % (Auto) Eos % (Auto) Lymph # [place] # Eos # Seg Neutrophils % Seg Neutrophils # PT INR POC ABG pH POC ABG pCO2 POC ABG pO2 VBG pH Sodium Potassium Chloride 110.6 H Carbon Dioxide BUN 31 H Creatinine Glucose 119 H POC Glucose 116 H 126 H Magnesium AST ALT Alkaline Phosphatase Total Creatine Kinase NT-Pro-B Natriuret Pep Albumin Urine WBC (Auto) Crossmatch 11/22/18 11/22/18 11/22/18 00:14 05:47 06:23 WBC RBC Hgb Hct MCH MCHC RDW Plt Count Lymph % (Auto) [place] % (Auto) Eos % (Auto) Lymph # [place] # Eos # Seg Neutrophils % Seg Neutrophils # PT INR POC ABG pH POC ABG pCO2 POC ABG pO2 VBG pH Sodium Potassium Chloride 107.6 H Carbon Dioxide BUN 32 H Creatinine 0.7 L Glucose 116 H POC Glucose 122 H 119 H Magnesium AST ALT Alkaline Phosphatase Total Creatine Kinase NT-Pro-B Natriuret Pep Albumin Urine WBC (Auto) Crossmatch 11/22/18 11/22/18 11/22/18 08:40 12:19 17:39 WBC RBC Hgb Hct MCH MCHC RDW Plt Count Lymph % (Auto) [place] % (Auto) Eos % (Auto) Lymph # [place] # Eos # Seg Neutrophils % Seg Neutrophils # PT INR POC ABG pH POC ABG pCO2 POC ABG pO2 VBG pH Sodium Potassium Chloride Carbon Dioxide BUN Creatinine Glucose POC Glucose 150 H 111 H 108 H Magnesium AST ALT Alkaline Phosphatase Total Creatine Kinase NT-Pro-B Natriuret Pep Albumin Urine WBC (Auto) Crossmatch 11/23/18 11/23/18 11/23/18 00:36 05:37 05:56 WBC RBC Hgb Hct MCH MCHC RDW Plt Count Lymph % (Auto) [place] % (Auto) Eos % (Auto) Lymph # [place] # Eos # Seg Neutrophils % Seg Neutrophils # PT INR POC ABG pH POC ABG pCO2 POC ABG pO2 VBG pH Sodium 136 L Potassium Chloride Carbon Dioxide BUN 30 H Creatinine 0.7 L Glucose 103 H POC Glucose 125 H 122 H Magnesium 2.50 H AST ALT Alkaline Phosphatase Total Creatine Kinase NT-Pro-B Natriuret Pep Albumin Urine WBC (Auto) Crossmatch 11/23/18 11/23/18 11/23/18 11:56 17:39 23:40 WBC RBC Hgb Hct MCH MCHC RDW Plt Count Lymph % (Auto) [place] % (Auto) Eos % (Auto) Lymph # [place] # Eos # Seg Neutrophils % Seg Neutrophils # PT INR POC ABG pH POC ABG pCO2 POC ABG pO2 VBG pH Sodium Potassium Chloride Carbon Dioxide BUN Creatinine Glucose POC Glucose 121 H 113 H 117 H Magnesium AST ALT Alkaline Phosphatase Total Creatine Kinase NT-Pro-B Natriuret Pep Albumin Urine WBC (Auto) Crossmatch 11/24/18 11/24/18 11/24/18 05:13 12:00 18:13 WBC RBC Hgb Hct MCH MCHC RDW Plt Count Lymph % (Auto) [place] % (Auto) Eos % (Auto) Lymph # [place] # Eos # Seg Neutrophils % Seg Neutrophils # PT INR POC ABG pH POC ABG pCO2 POC ABG pO2 VBG pH Sodium Potassium Chloride Carbon Dioxide BUN Creatinine Glucose POC Glucose 143 H 123 H 124 H Magnesium AST ALT Alkaline Phosphatase Total Creatine Kinase NT-Pro-B Natriuret Pep Albumin Urine WBC (Auto) Crossmatch 11/24/18 11/25/18 11/25/18 23:34 05:25 05:25 WBC RBC 2.48 L Hgb 6.8 L Hct 21.2 L MCH MCHC RDW 17.7 H Plt Count Lymph % (Auto) [place] % (Auto) Eos % (Auto) Lymph # [place] # Eos # Seg Neutrophils % Seg Neutrophils # PT INR POC ABG pH POC ABG pCO2 POC ABG pO2 VBG pH Sodium Potassium Chloride 108.8 H Carbon Dioxide BUN 30 H Creatinine 0.7 L Glucose 112 H POC Glucose 115 H Magnesium AST ALT Alkaline Phosphatase Total Creatine Kinase NT-Pro-B Natriuret Pep Albumin Urine WBC (Auto) Crossmatch 11/25/18 11/25/18 11/25/18 06:46 11:15 11:28 WBC RBC Hgb 7.4 L Hct 23.0 L MCH MCHC RDW Plt Count Lymph % (Auto) [place] % (Auto) Eos % (Auto) Lymph # [place] # Eos # Seg Neutrophils % Seg Neutrophils # PT INR POC ABG pH POC ABG pCO2 POC ABG pO2 VBG pH Sodium Potassium Chloride Carbon Dioxide BUN Creatinine Glucose POC Glucose 133 H 127 H Magnesium AST ALT Alkaline Phosphatase Total Creatine Kinase NT-Pro-B Natriuret Pep Albumin Urine WBC (Auto) Crossmatch 11/25/18 11/25/18 15:28 17:32 WBC RBC Hgb Hct MCH MCHC RDW Plt Count Lymph % (Auto) [place] % (Auto) Eos % (Auto) Lymph # [place] # Eos # Seg Neutrophils % Seg Neutrophils # PT INR POC ABG pH POC ABG pCO2 POC ABG pO2 VBG pH Sodium Potassium Chloride Carbon Dioxide BUN Creatinine Glucose POC Glucose 115 H Magnesium AST ALT Alkaline Phosphatase Total Creatine Kinase NT-Pro-B Natriuret Pep Albumin Urine WBC (Auto) Crossmatch See Detail Allied health notes reviewed: nursing
--- NOTE | 2018-11-25 18:36 | Event Note ---
Date: 11/25/18 Anemia, hgb 7.4. will transfuse 1 unit PRBC since he has history of CHF.
[2018-11-25] MEDS: APRESOLINE PO SCH (23:45)
[2018-11-26 06:33] LABS: Hematocrit 23.4 % (35.5-45.6); Hemoglobin 7.7 gm/dl (11.8-15.2); Mean Corpuscular HGB Conc 33 % (32-34); Mean Corpuscular Volume 85 fl (84-94); Platelet Count 438 K/mm3 (140-440); Red Blood Count 2.76 M/mm3 (3.65-5.03); Red Cell Distribution Width 17.5 % (13.2-15.2)
[2018-11-26 06:47] LABS: BUN/Creatinine Ratio 50; Blood Urea Nitrogen 30 mg/dL (9-20); Calcium 9.5 mg/dL (8.4-10.2); Hemolysis Index 0
[2018-11-26] MEDS: DUONEB *Not for PRN Use IH SCH ×2 (08:52→21:00)
[2018-11-26] MEDS: VITAMIN C FEEDTUBE SCH ×2 (10:21→21:19)
[2018-11-26] MEDS: KEPPRA FEEDTUBE SCH ×2 (10:21→21:18)
[2018-11-26] MEDS: ZINC SULFATE PO SCH (10:21)
[2018-11-26] MEDS: COREG PO SCH ×2 (10:21→21:19)
[2018-11-26] MEDS: LOVENOX SUB-Q SCH (10:22)
[2018-11-26] MEDS: DAPTOMYCIN IV SCH (10:22)
[2018-11-26] MEDS: Centrum Liq FEEDTUBE SCH (10:22)
[2018-11-26] MEDS: NACL 0.9% IV SCH (10:22)
[2018-11-26] MEDS: SODIUM CHLORIDE FLUSH SYRINGE 10 ML IV SCH ×2 (10:22→21:20)
[2018-11-26] MEDS: APRESOLINE PO SCH ×2 (10:22→21:18)
[2018-11-26] MEDS: DAKIN'S HALF STRENGTH TP SCH ×2 (10:23→21:19)
--- NOTE | 2018-11-26 10:41 | Progress Note ---
Assessment and Plan Cultures: Blood culture 10/01/2018 MRSA 2 of 4. Blood culture 10/03/2018 MRSA Blood culture 10/08/2018 no growth Blood culture 10/11/2018 no growth Blood culture 10/21/2018 no growth Blood culture 11/01/2018 Staph haemolyticus 2 of 4 bottles, resistent to methicillin and MRSA 1 of 4 bottles Blood culture 11/04/2018 no growth Assessment: 67 y/o male with history of HTN, CVA, Obstructive Uropathy, Contracture, Multiple Decubitus Ulcers, ME, DM, OA, Seizure Disorder, COPD, Dementia, Debility, BPH, well known to ID due to multiple admissions secondary to ducubitus ulcers infections and recurrent bacteremia, last time admitted on 10/02/2018 found with MRSA bacteremia jessica from decubitus ulcers mainly active large left trochanteric with bone exposure and sacral with bone exposure. Patient's infection was deemed incurable and hospice was recommended. Patient was discharged back to [facility] on IV vancomycin 1 gm every 48 hours for total 6 weeks ending 11/12/2018 via neck tunneled cath. Patient was readmitted on due to AMS, worsening SOB. Patient is lethargic and unable to provide history. At the [facility] he was found to have respiratory distress upon evaluation the morning of admission,pulse oximetry in the 80's: 1) Severe Sepsis: Improved. Etiology most likely Recurrent Staph bacteremia +/- CAUTI. 2) Staph haemolyticus and MRSA bacteremia with recent MRSA bacteremia: Blood culture 11/01/2018 Staph haemolyticus 2 of 4 bottles and MRSA 1 of 4. Source likely multiple decubitus ulcers or Neck IV central line. Patient is failing vancomycin. He has a tunneled neck cath. Recent TTE negative for vegetations. On daptomycin. 3) Recent septic shock due to polymicrobial bacteremia ESBL and carbapenem resistant E coli, MDR Proteus, Strep and E faecalis on 07/29/2018 probably from multiple infected decubitus ulcers and less likely UTI. Repeat blood cultures 07/31/2018 showed same MDR E coli 1 of 4 bottles then 08/06/2018 blood cultures showed no growth. Patient was treated with Vabomere for 14 days. 4) Multiple infected decubitus ulcers: His prognosis has been poor and hospice has been recommended several times in the past but family has declined. declined. His wounds are not curable considering his contractures, bed bound status and poor nutritional status. There was also suspicion of septic arthritis of left hip from decubitus ulcer. S/p debridement of multiple pressure ulcerations on 11/07/2018- stage 4 left hip pressure ulceration was surgically excisionally debrided of necrotic bone, stage 3 sacral, right ankle and left heel pressure ulcers were then surgically, excisionally debrided of necrotic SQ fat, stage 4 right heel, left lateral heel and right lateral leg ulcerations were surgically, excisionally debrided of necrotic SQ tissue, muscle and fascia.. s/p debridement 11/13/18 of multiple stage 3/4 pressure u lcers sacrum, right lateral leg, right lateral ankle, left heel, left hip and right heel Dr Man recommended bilateral AKA, patient and daughter refused. Dr Man recommended Orthopedic consultation for possible left hip disarticulation as his left hip joint is crumbling and has profuse purulent drainage. s/p Debridement of multiple decubitus ulcers 11/19/18 . 5) Recurrent UTI: Fley exchanged while inpatient. 6) Acute encephalopathy: multifactorial. 7) Acute resp failure: was on BIPAP now NC O2. EF 30-35% pericaldial and pleural effusion. Recommendations: - continue Daptomycin IV for now D18 - always contact isolation - at discharge will do daptomycin 400 mg IV q day for 6 weeks until 12/16/2018, Order placed with case management Extremely poor prognosis [facility] M: [id number] O:[phone] Subjective Date of service: 11/26/18 Principal diagnosis: Severe Sepsis; Ac. Hypoxemic Resp failure; Anemia; Seizure; UTI; BPH Interval history: Patient seen and examined. Awake. Alert. Continues to verbalize bilateral hip and buttock pain. No fevers. Objective - Exam Narrative Exam: General appearance: Awake. Reports acute pain. Eyes: anicteric sclerae, moist conjunctivae; no lid-lag; PERRLA HENT: Atraumatic; oropharynx limited Neck: Trachea midline; supple, no thyromegaly or lymphadenopathy Lungs: CTA CV: RRR no murmur Abdomen: Soft, non-tender Extremities: marked legs contractions, multiple decubitus ulcers covered with dressings Skin: multiple skin tears Psych: Calm Neuro: alert - Constitutional Vitals: Vital Signs Temp Pulse Resp BP Pulse Ox 98.6 F 69 18 122/52 100 11/26/18 04:34 11/26/18 09:03 11/26/18 09:03 11/26/18 04:34 11/26/18 08:52 Temperature -Last 24 Hours Temperature 98.6 F Temperature 99.1 F Temperature 99.3 F Temperature 98.5 F Temperature 98.5 F - Labs CBC & Chem 7: 11/26/18 06:20 11/26/18 06:20 Labs: Abnormal lab results 11/03/18 11/25/18 11/25/18 Range/Units 12:51 11:15 11:28 RBC (3.65-5.03) M/mm3 Hgb 7.4 L (11.8-15.2) gm/dl Hct 23.0 L (35.5-45.6) % RDW (13.2-15.2) % Chloride (98-107) mmol/L BUN (9-20) mg/dL Creatinine (0.8-1.5) mg/dL Glucose (75-100) mg/dL POC Glucose 127 H (70-105) Crossmatch See Detail 11/25/18 11/25/18 11/25/18 Range/Units 15:28 17:32 23:45 RBC (3.65-5.03) M/mm3 Hgb (11.8-15.2) gm/dl Hct (35.5-45.6) % RDW (13.2-15.2) % Chloride (98-107) mmol/L BUN (9-20) mg/dL Creatinine (0.8-1.5) mg/dL Glucose (75-100) mg/dL POC Glucose 115 H 130 H (70-105) Crossmatch See Detail 11/26/18 11/26/18 11/26/18 Range/Units 06:13 06:20 06:20 RBC 2.76 L (3.65-5.03) M/mm3 Hgb 7.7 L (11.8-15.2) gm/dl Hct 23.4 L (35.5-45.6) % RDW 17.5 H (13.2-15.2) % Chloride 109.9 H (98-107) mmol/L BUN 30 H (9-20) mg/dL Creatinine 0.6 L (0.8-1.5) mg/dL Glucose 121 H (75-100) mg/dL POC Glucose 129 H (70-105) Crossmatch
--- NOTE | 2018-11-26 12:40 | Progress Note ---
Assessment and Plan NSVT on tele Severe sepsis Decubitus ulcer infections and recurrent bacteremia Infection deemed incurable and hospice was recommended Recurrent UTI Chronic respiratory failure Anemia Chronically elevated troponin Paroxysmal Afib previously considered not a candidate for oral anticoagulation LBBB, chronic Cardiomyopathy EF 30-35% DIANA-i allergy Continue medical therapy for cardiomyopathy and recurrent NSVT. Otherwise, conservative cardiac management. We will follow intermittently. Subjective Date of service: 11/26/18 Principal diagnosis: Severe Sepsis; Ac. Hypoxemic Resp failure; Anemia; Seizure; UTI; BPH Interval history: No cardiac events on telemetry overnight. Objective Vital Signs Temp Pulse Pulse Resp Resp BP BP 11/26/18 09:03 69 18 11/26/18 08:52 76 18 11/26/18 08:24 108 H 11/26/18 04:34 98.6 F 17 122/52 11/26/18 04:00 86 11/25/18 23:00 99.1 F 84 16 128/60 11/25/18 22:00 71 11/25/18 20:43 79 20 124/65 11/25/18 20:42 18 11/25/18 20:32 79 18 11/25/18 20:15 74 18 11/25/18 20:00 99.3 F 11/25/18 18:25 98.5 F 78 18 148/79 Pulse Ox 11/26/18 09:03 11/26/18 08:52 100 11/26/18 08:24 11/26/18 04:34 11/26/18 04:00 97 11/25/18 23:00 97 11/25/18 22:00 11/25/18 20:43 98 11/25/18 20:42 11/25/18 20:32 11/25/18 20:15 99 11/25/18 20:00 11/25/18 18:25 99 - Physical Examination General: No Apparent Distress, Cachectic HEENT: Positive: Pallor Cardiac: Positive: Reg Rate and Rhythm Neuro: Positive: Other (contracted) Extremities: Absent: edema - Labs and Meds CBC 11/26/18 Range/Units 06:20 WBC 9.7 (4.5-11.0) K/mm3 RBC 2.76 L (3.65-5.03) M/mm3 Hgb 7.7 L (11.8-15.2) gm/dl Hct 23.4 L (35.5-45.6) % Plt Count 438 (140-440) K/mm3 Comprehensive Metabolic Panel 11/26/18 Range/Units 06:20 Sodium 144 (137-145) mmol/L Potassium 4.0 (3.6-5.0) mmol/L Chloride 109.9 H (98-107) mmol/L Carbon Dioxide 24 (22-30) mmol/L BUN 30 H (9-20) mg/dL Creatinine 0.6 L (0.8-1.5) mg/dL Glucose 121 H (75-100) mg/dL Calcium 9.5 (8.4-10.2) mg/dL - Allied health notes Allied health notes reviewed: nursing
--- NOTE | 2018-11-26 14:21 | Progress Note ---
Assessment and Plan /Sepsis with MRSA bacteremia, UTI, Infected decub ulcer POA, osteomyelitis poa - Patient had being multiple admission in the past including this one for similar situation - Previously and during this admission discussed multiple times with family for hospice placement but they refused - Patient was previously discharged with vancomycin for MRSA bacteremia - He readmitted this time while he was on vancomycin and blood cultures was still growing MRSA - Changed antibiotic to daptomycin per ID - at discharge will need daptomycin 400 mg IV q day for 6 weeks until 12/16/2018, Order placed with case management /Sacral pressure ulcer -infected. POA WOUND CARE CONSULTed. CONTINUE ABX. Debridement done by Dr Man Amputation recommended and the daughter refused /Acute on chronic encephalopathy - Due to sepsis and underlying dementia - Continue to provide supportive care / Paroxysmal SVTs -Cardiology was consulted during this admission -Patient was started on Coreg 6.25mg twice a day - Continue to monitor for now, we'll further follow up with cardiology if having SVTs more frequently - We'll monitor potassium, magnesium /Acute hypoxemic Respiratory failure Likely from underlying CHF exacerbation and profound sepsis cont Supplemental oxygen, nebulizer therapy, mgt per pulmonology / CHFeEF 30-35% with exacerbation, poa - Continue to monitor in's and O's, daily weight, aspirin and statin and beta chandan, patient is allergic to ACEI /Anemia of chronic disease Transfused one unit PRBC hemoglobin is stable /Seizure Continue current therapy, seizure precautions. / BPH status post TURP and obstructive uropathy Continue Chaudhary catherter placed by urology during this admission /Chronic Dementia supportive care /DVT prophylaxis Prophylactic lovenox POOR PROGNOSIS Disposition; Arranged family meeting on 11/14 with case operator patient's daughters, granddaughter and ex- along with Dr. Wynne. Family still wants to continue the antibiotic treatment, but they mention if antibiotic treatment fails this time and patient continued to spike fever or remains bacteremic with daptomycin then they would possibly consider hospice. Family also considering for DO NOT RESUSCITATE and does not want any life support for the patient, but they did not signed the DNR form yet. Patient will be discharged back to the [facility] as soon as isolation room is available. Brief history: 67-year-old male with history of HTN, CVA, Obstructive Uropathy, Diastolic CHF, Contracture, Sacral Decubitus Ulcers, VT, DM, OA, Seizure Disorder, COPD, Dementia, BPH presents to ED for evaluation. Pt is stuporous and unable to provide history. Pt history taken from ED Staff, EMS, and SNF Staff. As per staff, the patient was found to have respiratory distress upon evaluation this morning. Pt found to have pulse oximetry in the 80's. EMS notified and patient subsequently transported to [facility] for further care and evaluation. Pt seen and evaluated in ED and found to have UTI, Sepsis, Encephalopathy as well as Acute Hypoxemic Respiratory Failure. Pt initiated on NIPPV in ED with improvement in symptoms. Pt admitted to IM and initiated on Sepsis protocol. Prior admission on 10/01/18 reviewed. Extensive discussion with family about patients poor prognosis surgery consulted for possible debridment ID following, Pulmonary status improved Continue isolation care, Chaudhary placed by Urology please do not remove Discharge pending on isolation room availability at the [facility] Hospitalist Physical The patient appeared in no distress. Vital signs as documented. Head exam is unremarkable. No scleral icterus . Neck is without jugular venous distension, thyromegaly, or carotid bruits. Lungs are clear to auscultation. Cardiac exam reveals regular rate and Rhythm. First and second heart sounds normal. No murmurs, rubs or gallops. Abdominal exam reveals normal bowel sounds, no masses, no organomegaly and no aortic enlargement. Extremities contracted extremities. 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 Subjective Date of service: 11/26/18 Principal diagnosis: Severe Sepsis; Ac. Hypoxemic Resp failure; Anemia; Seizure; UTI; BPH Interval history: Patient seen and examined. Medical records and medication list reviewed. No acute event overnight noted by the RN. Discharge pending on placement Objective - Constitutional Vitals: Vital Signs - 12hr 11/26/18 11/26/18 11/26/18 04:00 04:34 08:24 Temperature 98.6 F Pulse Rate 86 108 H Pulse Rate [ Anterior Bilateral Throughout] Respiratory 17 Rate Respiratory Rate [Anterior Bilateral Throughout] Blood Pressure 122/52 O2 Sat by Pulse 97 Oximetry 11/26/18 11/26/18 08:52 09:03 Temperature Pulse Rate Pulse Rate [ 76 69 Anterior Bilateral Throughout] Respiratory Rate Respiratory 18 18 Rate [Anterior Bilateral Throughout] Blood Pressure O2 Sat by Pulse 100 Oximetry - Labs CBC & Chem 7: 11/26/18 06:20 11/26/18 06:20 Labs: Abnormal lab results 11/03/18 11/25/18 11/25/18 Range/Units 12:51 15:28 17:32 RBC (3.65-5.03) M/mm3 Hgb (11.8-15.2) gm/dl Hct (35.5-45.6) % RDW (13.2-15.2) % Chloride (98-107) mmol/L BUN (9-20) mg/dL Creatinine (0.8-1.5) mg/dL Glucose (75-100) mg/dL POC Glucose 115 H (70-105) Crossmatch See Detail See Detail 11/25/18 11/26/18 11/26/18 Range/Units 23:45 06:13 06:20 RBC 2.76 L (3.65-5.03) M/mm3 Hgb 7.7 L (11.8-15.2) gm/dl Hct 23.4 L (35.5-45.6) % RDW 17.5 H (13.2-15.2) % Chloride (98-107) mmol/L BUN (9-20) mg/dL Creatinine (0.8-1.5) mg/dL Glucose (75-100) mg/dL POC Glucose 130 H 129 H (70-105) Crossmatch 11/26/18 11/26/18 Range/Units 06:20 12:06 RBC (3.65-5.03) M/mm3 Hgb (11.8-15.2) gm/dl Hct (35.5-45.6) % RDW (13.2-15.2) % Chloride 109.9 H (98-107) mmol/L BUN 30 H (9-20) mg/dL Creatinine 0.6 L (0.8-1.5) mg/dL Glucose 121 H (75-100) mg/dL POC Glucose 139 H (70-105) Crossmatch
--- NOTE | 2018-11-26 14:48 | Progress Note ---
Assessment and Plan Patient weak and contracted. Patient is awake and resting on 2L O2 via nasal canula. No acute respiratory distress. O2 sat 100%. Patient is afebrile. BP 122/52. No change in general condition. - Patient Problems (1) Respiratory failure Current Visit: Yes Status: Acute Qualifiers: Chronicity: acute Respiratory failure complication: hypoxia Qualified Code(s): J96.01 - Acute respiratory failure with hypoxia Plan to address problem: Continue O2 supplementation 2 L via nasal canula. Albuterol and Atrovent treatment q6h. Patient is on Diptomycine as per infectious diseases. Continue SQ Levonox. Recommend GI prophylexis. (2) Seizure Current Visit: Yes Status: Acute Plan to address problem: Management as per neurologist. (3) Sepsis Current Visit: Yes Status: Acute Plan to address problem: Patient is on Daptomycine as per infectious diseases. (4) UTI (urinary tract infection) Current Visit: Yes Status: Acute Qualifiers: Encounter type: initial encounter Plan to address problem: Patient is on Daptomycine as per infectious diseases. (5) ARF (acute renal failure) with tubular necrosis Current Visit: No Status: Acute Plan to address problem: Management as per Nephrology. Subjective Date of service: 11/26/18 Principal diagnosis: Severe Sepsis; Ac. Hypoxemic Resp failure; Anemia; Seizure; UTI; BPH Interval history: Patient weak and contracted. Patient is awake and resting on 2L O2 via nasal canula. No acute respiratory distress. O2 sat 100%. Patient is afebrile. BP 122/52. No change in general condition. Objective Vital Signs - 12hr 11/26/18 11/26/18 11/26/18 04:00 04:34 08:24 Temperature 98.6 F Pulse Rate 86 108 H Pulse Rate [ Anterior Bilateral Throughout] Respiratory 17 Rate Respiratory Rate [Anterior Bilateral Throughout] Blood Pressure 122/52 O2 Sat by Pulse 97 Oximetry 11/26/18 11/26/18 08:52 09:03 Temperature Pulse Rate Pulse Rate [ 76 69 Anterior Bilateral Throughout] Respiratory Rate Respiratory 18 18 Rate [Anterior Bilateral Throughout] Blood Pressure O2 Sat by Pulse 100 Oximetry Constitutional: no acute distress, alert, other (Patient is weak. ) Eyes: non-icteric ENT: oropharynx moist Neck: no lymphadenopathy, no JVD, other (mild stiffness / contracture) Effort: mildly labored Ascultation: Bilateral: diminished breath sounds, rhonchi Percussion: Bilateral: not dull Cardiovascular: regular rate and rhythm Gastrointestinal: normoactive bowel sounds, soft, non-tender, non-distended Integumentary: rash Extremities: no cyanosis, no edema, pulses normal, other (Patient has pressure ulcer at multiple areas, including sacral area.) Neurologic: non-focal exam, pupils equal and round, CN II-XII normal, other (+ contractures) Psychiatric: mood appropriate, affect normal CBC and BMP: 11/26/18 06:20 11/26/18 06:20 ABG, PT/INR, D-dimer: ABG POC ABG pH 7.494 (7.35-7.45) H 11/01/18 15:27 POC ABG pCO2 34.5 (35-45) L 11/01/18 15:27 POC ABG pO2 139 (80-105) H 11/01/18 15:27 POC ABG HCO3 26.5 (22-26 mml/L) 11/01/18 15:27 POC ABG Total CO2 28 (23-27mmol/L) 11/01/18 15:27 POC ABG O2 Sat 99 11/01/18 15:27 PT/INR, D-dimer PT 16.3 Sec. (12.2-14.9) H 11/01/18 14:50 INR 1.35 (0.87-1.13) H 11/01/18 14:50 Abnormal lab findings: Abnormal Labs 11/01/18 11/01/18 11/01/18 14:50 14:50 14:50 WBC 15.3 H RBC 2.76 L Hgb 7.9 L Hct 23.5 L MCH MCHC RDW 18.3 H Plt Count 567 H Lymph % (Auto) 6.5 L [place] % (Auto) 8.5 H Eos % (Auto) Lymph # 1.0 L [place] # 1.3 H Eos # Seg Neutrophils % 83.4 H Seg Neutrophils # 12.7 H PT 16.3 H INR 1.35 H POC ABG pH POC ABG pCO2 POC ABG pO2 VBG pH Sodium Potassium Chloride Carbon Dioxide BUN 49 H Creatinine Glucose 132 H POC Glucose Magnesium AST 90 H ALT 77 H Alkaline Phosphatase 350 H Total Creatine Kinase NT-Pro-B Natriuret Pep Albumin 1.6 L Urine WBC (Auto) Crossmatch 11/01/18 11/01/18 11/01/18 14:50 14:50 15:27 WBC RBC Hgb Hct MCH MCHC RDW Plt Count Lymph % (Auto) [place] % (Auto) Eos % (Auto) Lymph # [place] # Eos # Seg Neutrophils % Seg Neutrophils # PT INR POC ABG pH 7.494 H POC ABG pCO2 34.5 L POC ABG pO2 139 H VBG pH 7.499 H Sodium Potassium Chloride Carbon Dioxide BUN Creatinine Glucose POC Glucose Magnesium AST ALT Alkaline Phosphatase Total Creatine Kinase NT-Pro-B Natriuret Pep 6776 H Albumin Urine WBC (Auto) Crossmatch 11/01/18 11/03/18 11/03/18 15:57 03:41 03:41 WBC 12.8 H RBC 2.55 L Hgb 6.9 L Hct 22.2 L MCH 27 L MCHC 31 L RDW 17.9 H Plt Count 519 H Lymph % (Auto) [place] % (Auto) Eos % (Auto) Lymph # [place] # Eos # Seg Neutrophils % Seg Neutrophils # PT INR POC ABG pH POC ABG pCO2 POC ABG pO2 VBG pH Sodium 147 H Potassium Chloride 110.3 H Carbon Dioxide BUN 55 H Creatinine Glucose POC Glucose Magnesium AST ALT Alkaline Phosphatase Total Creatine Kinase NT-Pro-B Natriuret Pep Albumin Urine WBC (Auto) > 182.0 H Crossmatch 11/03/18 11/04/18 11/04/18 12:51 05:12 05:12 WBC 11.5 H RBC 2.94 L Hgb 8.3 L Hct 25.3 L MCH MCHC RDW 17.3 H Plt Count 514 H Lymph % (Auto) [place] % (Auto) Eos % (Auto) Lymph # [place] # Eos # Seg Neutrophils % Seg Neutrophils # PT INR POC ABG pH POC ABG pCO2 POC ABG pO2 VBG pH Sodium 147 H Potassium Chloride 112.4 H Carbon Dioxide BUN 52 H Creatinine Glucose POC Glucose Magnesium AST ALT Alkaline Phosphatase Total Creatine Kinase NT-Pro-B Natriuret Pep Albumin Urine WBC (Auto) Crossmatch See Detail 11/05/18 11/05/18 11/06/18 04:50 04:50 05:42 WBC RBC 3.03 L 2.80 L Hgb 8.7 L 7.9 L Hct 26.6 L 24.7 L MCH MCHC RDW 17.1 H 17.0 H Plt Count 502 H 478 H Lymph % (Auto) 10.4 L [place] % (Auto) 8.6 H Eos % (Auto) 4.7 H Lymph # 1.0 L [place] # Eos # 0.5 H Seg Neutrophils % 75.6 H Seg Neutrophils # PT INR POC ABG pH POC ABG pCO2 POC ABG pO2 VBG pH Sodium 149 H Potassium Chloride 114.4 H Carbon Dioxide 21 L BUN 50 H Creatinine Glucose 108 H POC Glucose Magnesium AST ALT Alkaline Phosphatase Total Creatine Kinase NT-Pro-B Natriuret Pep Albumin Urine WBC (Auto) Crossmatch 11/06/18 11/11/18 11/12/18 05:42 18:54 00:22 WBC RBC Hgb Hct MCH MCHC RDW Plt Count Lymph % (Auto) [place] % (Auto) Eos % (Auto) Lymph # [place] # Eos # Seg Neutrophils % Seg Neutrophils # PT INR POC ABG pH POC ABG pCO2 POC ABG pO2 VBG pH Sodium 149 H Potassium Chloride 113.4 H Carbon Dioxide BUN 50 H Creatinine Glucose 121 H POC Glucose 114 H 123 H Magnesium AST ALT Alkaline Phosphatase Total Creatine Kinase NT-Pro-B Natriuret Pep Albumin Urine WBC (Auto) Crossmatch 11/12/18 11/12/18 11/13/18 06:49 11:35 06:34 WBC RBC Hgb Hct MCH MCHC RDW Plt Count Lymph % (Auto) [place] % (Auto) Eos % (Auto) Lymph # [place] # Eos # Seg Neutrophils % Seg Neutrophils # PT INR POC ABG pH POC ABG pCO2 POC ABG pO2 VBG pH Sodium Potassium Chloride Carbon Dioxide BUN Creatinine Glucose POC Glucose 129 H 123 H 128 H Magnesium AST ALT Alkaline Phosphatase Total Creatine Kinase NT-Pro-B Natriuret Pep Albumin Urine WBC (Auto) Crossmatch 11/13/18 11/13/18 11/13/18 09:26 09:26 15:13 WBC RBC 3.08 L Hgb 8.6 L Hct 27.3 L MCH MCHC 31 L RDW 18.3 H Plt Count 504 H Lymph % (Auto) 11.7 L [place] % (Auto) 7.5 H Eos % (Auto) 7.0 H Lymph # [place] # Eos # 0.7 H Seg Neutrophils % 72.9 H Seg Neutrophils # PT INR POC ABG pH POC ABG pCO2 POC ABG pO2 VBG pH Sodium 153 H Potassium 6.3 H* 5.8 H Chloride 122.3 H Carbon Dioxide 21 L BUN 38 H Creatinine Glucose 112 H POC Glucose Magnesium AST ALT Alkaline Phosphatase Total Creatine Kinase NT-Pro-B Natriuret Pep Albumin Urine WBC (Auto) Crossmatch 11/13/18 11/13/18 11/14/18 22:10 23:45 13:17 WBC RBC Hgb Hct MCH MCHC RDW Plt Count Lymph % (Auto) [place] % (Auto) Eos % (Auto) Lymph # [place] # Eos # Seg Neutrophils % Seg Neutrophils # PT INR POC ABG pH POC ABG pCO2 POC ABG pO2 VBG pH Sodium 155 H Potassium 5.3 H Chloride 122.3 H Carbon Dioxide BUN 35 H Creatinine Glucose 113 H POC Glucose 111 H 142 H Magnesium AST ALT Alkaline Phosphatase Total Creatine Kinase NT-Pro-B Natriuret Pep Albumin Urine WBC (Auto) Crossmatch 11/14/18 11/15/18 11/15/18 19:08 00:31 06:45 WBC RBC Hgb Hct MCH MCHC RDW Plt Count Lymph % (Auto) [place] % (Auto) Eos % (Auto) Lymph # [place] # Eos # Seg Neutrophils % Seg Neutrophils # PT INR POC ABG pH POC ABG pCO2 POC ABG pO2 VBG pH Sodium Potassium Chloride Carbon Dioxide BUN Creatinine Glucose POC Glucose 116 H 125 H 131 H Magnesium AST ALT Alkaline Phosphatase Total Creatine Kinase NT-Pro-B Natriuret Pep Albumin Urine WBC (Auto) Crossmatch 11/15/18 11/15/18 11/15/18 07:13 07:13 19:03 WBC 13.2 H RBC 2.81 L Hgb 7.8 L Hct 24.5 L MCH MCHC RDW 18.2 H Plt Count 454 H Lymph % (Auto) 9.0 L [place] % (Auto) 7.5 H Eos % (Auto) Lymph # [place] # 1.0 H Eos # 0.5 H Seg Neutrophils % 78.8 H Seg Neutrophils # 10.4 H PT INR POC ABG pH POC ABG pCO2 POC ABG pO2 VBG pH Sodium 149 H Potassium 5.2 H Chloride 117.2 H Carbon Dioxide BUN 38 H Creatinine Glucose 114 H POC Glucose 141 H Magnesium AST ALT Alkaline Phosphatase Total Creatine Kinase NT-Pro-B Natriuret Pep Albumin Urine WBC (Auto) Crossmatch 11/16/18 11/16/18 11/16/18 01:15 01:15 06:45 WBC RBC Hgb Hct MCH MCHC RDW Plt Count Lymph % (Auto) [place] % (Auto) Eos % (Auto) Lymph # [place] # Eos # Seg Neutrophils % Seg Neutrophils # PT INR POC ABG pH POC ABG pCO2 POC ABG pO2 VBG pH Sodium Potassium 5.3 H Chloride Carbon Dioxide BUN Creatinine Glucose POC Glucose 129 H Magnesium 2.60 H AST ALT Alkaline Phosphatase Total Creatine Kinase NT-Pro-B Natriuret Pep Albumin Urine WBC (Auto) Crossmatch 11/16/18 11/16/18 11/17/18 13:20 18:02 00:16 WBC RBC Hgb Hct MCH MCHC RDW Plt Count Lymph % (Auto) [place] % (Auto) Eos % (Auto) Lymph # [place] # Eos # Seg Neutrophils % Seg Neutrophils # PT INR POC ABG pH POC ABG pCO2 POC ABG pO2 VBG pH Sodium Potassium Chloride Carbon Dioxide BUN Creatinine Glucose POC Glucose 130 H 127 H 120 H Magnesium AST ALT Alkaline Phosphatase Total Creatine Kinase NT-Pro-B Natriuret Pep Albumin Urine WBC (Auto) Crossmatch 11/17/18 11/17/18 11/17/18 05:48 08:02 08:02 WBC RBC Hgb 7.5 L Hct 23.5 L MCH MCHC RDW Plt Count Lymph % (Auto) [place] % (Auto) Eos % (Auto) Lymph # [place] # Eos # Seg Neutrophils % Seg Neutrophils # PT INR POC ABG pH POC ABG pCO2 POC ABG pO2 VBG pH Sodium Potassium Chloride 110.1 H Carbon Dioxide 21 L BUN 38 H Creatinine Glucose 121 H POC Glucose 130 H Magnesium AST ALT Alkaline Phosphatase Total Creatine Kinase NT-Pro-B Natriuret Pep Albumin Urine WBC (Auto) Crossmatch 11/17/18 11/17/18 11/18/18 12:17 16:48 06:00 WBC RBC Hgb Hct MCH MCHC RDW Plt Count Lymph % (Auto) [place] % (Auto) Eos % (Auto) Lymph # [place] # Eos # Seg Neutrophils % Seg Neutrophils # PT INR POC ABG pH POC ABG pCO2 POC ABG pO2 VBG pH Sodium Potassium Chloride Carbon Dioxide BUN Creatinine Glucose POC Glucose 140 H 120 H 137 H Magnesium AST ALT Alkaline Phosphatase Total Creatine Kinase NT-Pro-B Natriuret Pep Albumin Urine WBC (Auto) Crossmatch 11/19/18 11/19/18 11/19/18 00:20 05:35 06:11 WBC RBC Hgb Hct MCH MCHC RDW Plt Count Lymph % (Auto) [place] % (Auto) Eos % (Auto) Lymph # [place] # Eos # Seg Neutrophils % Seg Neutrophils # PT INR POC ABG pH POC ABG pCO2 POC ABG pO2 VBG pH Sodium Potassium Chloride Carbon Dioxide BUN Creatinine Glucose POC Glucose 111 H 126 H Magnesium AST ALT Alkaline Phosphatase Total Creatine Kinase 53 L NT-Pro-B Natriuret Pep Albumin Urine WBC (Auto) Crossmatch 11/19/18 11/19/18 11/20/18 11:37 23:43 06:52 WBC RBC Hgb Hct MCH MCHC RDW Plt Count Lymph % (Auto) [place] % (Auto) Eos % (Auto) Lymph # [place] # Eos # Seg Neutrophils % Seg Neutrophils # PT INR POC ABG pH POC ABG pCO2 POC ABG pO2 VBG pH Sodium Potassium Chloride Carbon Dioxide BUN Creatinine Glucose POC Glucose 139 H 145 H 125 H Magnesium AST ALT Alkaline Phosphatase Total Creatine Kinase NT-Pro-B Natriuret Pep Albumin Urine WBC (Auto) Crossmatch 11/20/18 11/20/18 11/20/18 09:55 09:55 11:49 WBC RBC 3.04 L Hgb 8.4 L Hct 26.1 L MCH MCHC RDW 17.5 H Plt Count Lymph % (Auto) [place] % (Auto) Eos % (Auto) Lymph # [place] # Eos # Seg Neutrophils % Seg Neutrophils # PT INR POC ABG pH POC ABG pCO2 POC ABG pO2 VBG pH Sodium 149 H Potassium Chloride 114.5 H Carbon Dioxide 21 L BUN 35 H Creatinine Glucose 127 H POC Glucose 150 H Magnesium AST ALT Alkaline Phosphatase Total Creatine Kinase NT-Pro-B Natriuret Pep Albumin Urine WBC (Auto) Crossmatch 11/20/18 11/20/18 11/21/18 18:02 23:49 06:14 WBC RBC Hgb Hct MCH MCHC RDW Plt Count Lymph % (Auto) [place] % (Auto) Eos % (Auto) Lymph # [place] # Eos # Seg Neutrophils % Seg Neutrophils # PT INR POC ABG pH POC ABG pCO2 POC ABG pO2 VBG pH Sodium Potassium Chloride Carbon Dioxide BUN Creatinine Glucose POC Glucose 131 H 137 H 133 H Magnesium AST ALT Alkaline Phosphatase Total Creatine Kinase NT-Pro-B Natriuret Pep Albumin Urine WBC (Auto) Crossmatch 11/21/18 11/21/18 11/21/18 10:00 12:09 18:04 WBC RBC Hgb Hct MCH MCHC RDW Plt Count Lymph % (Auto) [place] % (Auto) Eos % (Auto) Lymph # [place] # Eos # Seg Neutrophils % Seg Neutrophils # PT INR POC ABG pH POC ABG pCO2 POC ABG pO2 VBG pH Sodium Potassium Chloride 110.6 H Carbon Dioxide BUN 31 H Creatinine Glucose 119 H POC Glucose 116 H 126 H Magnesium AST ALT Alkaline Phosphatase Total Creatine Kinase NT-Pro-B Natriuret Pep Albumin Urine WBC (Auto) Crossmatch 11/22/18 11/22/18 11/22/18 00:14 05:47 06:23 WBC RBC Hgb Hct MCH MCHC RDW Plt Count Lymph % (Auto) [place] % (Auto) Eos % (Auto) Lymph # [place] # Eos # Seg Neutrophils % Seg Neutrophils # PT INR POC ABG pH POC ABG pCO2 POC ABG pO2 VBG pH Sodium Potassium Chloride 107.6 H Carbon Dioxide BUN 32 H Creatinine 0.7 L Glucose 116 H POC Glucose 122 H 119 H Magnesium AST ALT Alkaline Phosphatase Total Creatine Kinase NT-Pro-B Natriuret Pep Albumin Urine WBC (Auto) Crossmatch 11/22/18 11/22/18 11/22/18 08:40 12:19 17:39 WBC RBC Hgb Hct MCH MCHC RDW Plt Count Lymph % (Auto) [place] % (Auto) Eos % (Auto) Lymph # [place] # Eos # Seg Neutrophils % Seg Neutrophils # PT INR POC ABG pH POC ABG pCO2 POC ABG pO2 VBG pH Sodium Potassium Chloride Carbon Dioxide BUN Creatinine Glucose POC Glucose 150 H 111 H 108 H Magnesium AST ALT Alkaline Phosphatase Total Creatine Kinase NT-Pro-B Natriuret Pep Albumin Urine WBC (Auto) Crossmatch 11/23/18 11/23/18 11/23/18 00:36 05:37 05:56 WBC RBC Hgb Hct MCH MCHC RDW Plt Count Lymph % (Auto) [place] % (Auto) Eos % (Auto) Lymph # [place] # Eos # Seg Neutrophils % Seg Neutrophils # PT INR POC ABG pH POC ABG pCO2 POC ABG pO2 VBG pH Sodium 136 L Potassium Chloride Carbon Dioxide BUN 30 H Creatinine 0.7 L Glucose 103 H POC Glucose 125 H 122 H Magnesium 2.50 H AST ALT Alkaline Phosphatase Total Creatine Kinase NT-Pro-B Natriuret Pep Albumin Urine WBC (Auto) Crossmatch 11/23/18 11/23/18 11/23/18 11:56 17:39 23:40 WBC RBC Hgb Hct MCH MCHC RDW Plt Count Lymph % (Auto) [place] % (Auto) Eos % (Auto) Lymph # [place] # Eos # Seg Neutrophils % Seg Neutrophils # PT INR POC ABG pH POC ABG pCO2 POC ABG pO2 VBG pH Sodium Potassium Chloride Carbon Dioxide BUN Creatinine Glucose POC Glucose 121 H 113 H 117 H Magnesium AST ALT Alkaline Phosphatase Total Creatine Kinase NT-Pro-B Natriuret Pep Albumin Urine WBC (Auto) Crossmatch 11/24/18 11/24/18 11/24/18 05:13 12:00 18:13 WBC RBC Hgb Hct MCH MCHC RDW Plt Count Lymph % (Auto) [place] % (Auto) Eos % (Auto) Lymph # [place] # Eos # Seg Neutrophils % Seg Neutrophils # PT INR POC ABG pH POC ABG pCO2 POC ABG pO2 VBG pH Sodium Potassium Chloride Carbon Dioxide BUN Creatinine Glucose POC Glucose 143 H 123 H 124 H Magnesium AST ALT Alkaline Phosphatase Total Creatine Kinase NT-Pro-B Natriuret Pep Albumin Urine WBC (Auto) Crossmatch 11/24/18 11/25/18 11/25/18 23:34 05:25 05:25 WBC RBC 2.48 L Hgb 6.8 L Hct 21.2 L MCH MCHC RDW 17.7 H Plt Count Lymph % (Auto) [place] % (Auto) Eos % (Auto) Lymph # [place] # Eos # Seg Neutrophils % Seg Neutrophils # PT INR POC ABG pH POC ABG pCO2 POC ABG pO2 VBG pH Sodium Potassium Chloride 108.8 H Carbon Dioxide BUN 30 H Creatinine 0.7 L Glucose 112 H POC Glucose 115 H Magnesium AST ALT Alkaline Phosphatase Total Creatine Kinase NT-Pro-B Natriuret Pep Albumin Urine WBC (Auto) Crossmatch 11/25/18 11/25/18 11/25/18 06:46 11:15 11:28 WBC RBC Hgb 7.4 L Hct 23.0 L MCH MCHC RDW Plt Count Lymph % (Auto) [place] % (Auto) Eos % (Auto) Lymph # [place] # Eos # Seg Neutrophils % Seg Neutrophils # PT INR POC ABG pH POC ABG pCO2 POC ABG pO2 VBG pH Sodium Potassium Chloride Carbon Dioxide BUN Creatinine Glucose POC Glucose 133 H 127 H Magnesium AST ALT Alkaline Phosphatase Total Creatine Kinase NT-Pro-B Natriuret Pep Albumin Urine WBC (Auto) Crossmatch 11/25/18 11/25/18 11/25/18 15:28 17:32 23:45 WBC RBC Hgb Hct MCH MCHC RDW Plt Count Lymph % (Auto) [place] % (Auto) Eos % (Auto) Lymph # [place] # Eos # Seg Neutrophils % Seg Neutrophils # PT INR POC ABG pH POC ABG pCO2 POC ABG pO2 VBG pH Sodium Potassium Chloride Carbon Dioxide BUN Creatinine Glucose POC Glucose 115 H 130 H Magnesium AST ALT Alkaline Phosphatase Total Creatine Kinase NT-Pro-B Natriuret Pep Albumin Urine WBC (Auto) Crossmatch See Detail 11/26/18 11/26/18 11/26/18 06:13 06:20 06:20 WBC RBC 2.76 L Hgb 7.7 L Hct 23.4 L MCH MCHC RDW 17.5 H Plt Count Lymph % (Auto) [place] % (Auto) Eos % (Auto) Lymph # [place] # Eos # Seg Neutrophils % Seg Neutrophils # PT INR POC ABG pH POC ABG pCO2 POC ABG pO2 VBG pH Sodium Potassium Chloride 109.9 H Carbon Dioxide BUN 30 H Creatinine 0.6 L Glucose 121 H POC Glucose 129 H Magnesium AST ALT Alkaline Phosphatase Total Creatine Kinase NT-Pro-B Natriuret Pep Albumin Urine WBC (Auto) Crossmatch 11/26/18 12:06 WBC RBC Hgb Hct MCH MCHC RDW Plt Count Lymph % (Auto) [place] % (Auto) Eos % (Auto) Lymph # [place] # Eos # Seg Neutrophils % Seg Neutrophils # PT INR POC ABG pH POC ABG pCO2 POC ABG pO2 VBG pH Sodium Potassium Chloride Carbon Dioxide BUN Creatinine Glucose POC Glucose 139 H Magnesium AST ALT Alkaline Phosphatase Total Creatine Kinase NT-Pro-B Natriuret Pep Albumin Urine WBC (Auto) Crossmatch Allied health notes reviewed: nursing
[2018-11-26] MEDS: CATAPRES-TTS PATCH TD SCH (17:32)
[2018-11-27] MEDS: Centrum Liq FEEDTUBE SCH (09:12)
[2018-11-27] MEDS: LOVENOX SUB-Q SCH (09:12)
[2018-11-27] MEDS: VITAMIN C FEEDTUBE SCH ×2 (09:13→22:37)
[2018-11-27] MEDS: KEPPRA FEEDTUBE SCH ×2 (09:13→22:36)
[2018-11-27] MEDS: APRESOLINE PO SCH ×2 (09:13→22:37)
[2018-11-27] MEDS: COREG PO SCH ×2 (09:13→22:36)
[2018-11-27] MEDS: DAKIN'S HALF STRENGTH TP SCH (09:14)
[2018-11-27] MEDS: ZINC SULFATE PO SCH (09:20)
[2018-11-27] MEDS: DUONEB *Not for PRN Use IH SCH ×2 (09:31→21:14)
--- NOTE | 2018-11-27 10:54 | Progress Note ---
Assessment and Plan Cultures: Blood culture 10/01/2018 MRSA 2 of 4. Blood culture 10/03/2018 MRSA Blood culture 10/08/2018 no growth Blood culture 10/11/2018 no growth Blood culture 10/21/2018 no growth Blood culture 11/01/2018 Staph haemolyticus 2 of 4 bottles, resistent to methicillin and MRSA 1 of 4 bottles Blood culture 11/04/2018 no growth Assessment: 67 y/o male with history of HTN, CVA, Obstructive Uropathy, Contracture, Multiple Decubitus Ulcers, [place], DM, OA, Seizure Disorder, COPD, Dementia, Debility, BPH, well known to ID due to multiple admissions secondary to ducubitus ulcers infections and recurrent bacteremia, last time admitted on 10/02/2018 found with MRSA bacteremia jessica from decubitus ulcers mainly active large left trochanteric with bone exposure and sacral with bone exposure. Patient's infection was deemed incurable and hospice was recommended. Patient was discharged back to [facility] on IV vancomycin 1 gm every 48 hours for total 6 weeks ending 11/12/2018 via neck tunneled cath. Patient was readmitted on due to AMS, worsening SOB. Patient is lethargic and unable to provide history. At the [facility] he was found to have respiratory distress upon evaluation the morning of admission,pulse oximetry in the 80's: 1) Severe Sepsis: Improved. Etiology most likely Recurrent Staph bacteremia +/- CAUTI. 2) Staph haemolyticus and MRSA bacteremia with recent MRSA bacteremia: Blood culture 11/01/2018 Staph haemolyticus 2 of 4 bottles and MRSA 1 of 4. Source likely multiple decubitus ulcers or Neck IV central line. Patient is failing vancomycin. He has a tunneled neck cath. Recent TTE negative for vegetations. On daptomycin. 3) Recent septic shock due to polymicrobial bacteremia ESBL and carbapenem resistant E coli, MDR Proteus, Strep and E faecalis on 07/29/2018 probably from multiple infected decubitus ulcers and less likely UTI. Repeat blood cultures 07/31/2018 showed same MDR E coli 1 of 4 bottles then 08/06/2018 blood cultures showed no growth. Patient was treated with Vabomere for 14 days. 4) Multiple infected decubitus ulcers: His prognosis has been poor and hospice has been recommended several times in the past but family has declined. declined. His wounds are not curable considering his contractures, bed bound status and poor nutritional status. There was also suspicion of septic arthritis of left hip from decubitus ulcer. S/p debridement of multiple pressure ulcerations on 11/07/2018- stage 4 left hip pressure ulceration was surgically excisionally debrided of necrotic bone, stage 3 sacral, right ankle and left heel pressure ulcers were then surgically, excisionally debrided of necrotic SQ fat, stage 4 right heel, left lateral heel and right lateral leg ulcerations were surgically, excisionally debrided of necrotic SQ tissue, muscle and fascia.. s/p debridement 11/13/18 of multiple stage 3/4 pressure u lcers sacrum, right lateral leg, right lateral ankle, left heel, left hip and right heel Dr Man recommended bilateral AKA, patient and daughter refused. Dr Man recommended Orthopedic consultation for possible left hip disarticulation as his left hip joint is crumbling and has profuse purulent drainage. s/p Debridement of multiple decubitus ulcers 11/19/18 . 5) Recurrent UTI: Fley exchanged while inpatient. 6) Acute encephalopathy: multifactorial. 7) Acute resp failure: was on BIPAP now NC O2. EF 30-35% pericaldial and pleural effusion. Recommendations: - continue Daptomycin IV D24, at discharge, continue daptomycin 400 mg IV q day for 6 weeks until 12/16/2018, Order placed with case management - Patient colonized with multiple MDROs, 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 Continue contact isolation while inpatient D/W case management Extremely poor prognosis [facility] M: [phone] O:[phone] Subjective Date of service: 11/27/18 Principal diagnosis: Severe Sepsis; Ac. Hypoxemic Resp failure; Anemia; Seizure; UTI; BPH Interval history: Patient seen and examined. Awake. Alert. Continues to verbalize bilateral hip and buttock pain. No fevers. Objective - Exam Narrative Exam: General appearance: Awake. Reports acute pain. Eyes: anicteric sclerae, moist conjunctivae; no lid-lag; PERRLA HENT: Atraumatic; oropharynx limited Neck: Trachea midline; supple, no thyromegaly or lymphadenopathy Lungs: CTA CV: RRR no murmur Abdomen: Soft, non-tender Extremities: marked legs contractions, multiple decubitus ulcers covered with dressings Skin: multiple skin tears Psych: Calm Neuro: alert - Constitutional Vitals: Vital Signs Temp Pulse Resp BP Pulse Ox 98.2 F 78 18 158/63 98 11/27/18 08:58 11/27/18 09:42 11/27/18 09:42 11/27/18 08:58 11/27/18 09:32 Temperature -Last 24 Hours Temperature 98.2 F Temperature 98.4 F Temperature 98.6 F Temperature 98.9 F Temperature 97.6 F - Labs CBC & Chem 7: 11/26/18 06:20 11/26/18 06:20 Labs: Abnormal lab results 11/26/18 11/26/18 11/27/18 Range/Units 12:06 16:35 06:04 POC Glucose 139 H 107 H 126 H (70-105)
--- NOTE | 2018-11-27 13:26 | Procedure Note ---
Date of procedure: 11/27/18 Pre-op diagnosis: Multiple pressure ulcers Post-op diagnosis: same (See below.) Procedure: Surgical excisional debridement of multiple pressure ulcers Description of procedure: Pt was positioned to expose his pressure ulcers. He was administer IV morphine by his nurse. The left hip and right heel ulcers were surgically excisionally debrided of necrotic fascia and bone with a curette. The sacral pressure was then surgically excisionally debrided of necrotic fascia with a curette. The right lateral leg, right lateral ankle, left heel and right knee were surgically excisionally debrided of necrotic SQ tissue with a curette. Bleeding was minimal at all sites and was controlled with pressure. Pt tolerated the procedure well. Wounds were dressed by the wound care nurse. Final wound measurements were as follows: 1) Left hip - 4 x 5 x 7.5 cm 2) Right heel - 3 x 3 x 1.2 cm 3) Sacrum - 10 X 13 X 1 cm 4) Right lateral leg - 11 x 2.6 x 0.5 cm 5) Right lateral ankle - 2.2 x 2.5 x 0.4 cm 6) Left heel - 2 x 6 x 0.4 cm 7) Right knee - 2.5 x 3 x 0.3 cm Anesthesia: other (IV morphine) Surgeon: FABRICIO WASHINGTON Estimated blood loss: minimal Pathology: none Specimen disposition: discarded Condition: stable Disposition: no change
[2018-11-27] MEDS: NACL 0.9% IV SCH (13:45)
[2018-11-27] MEDS: DAPTOMYCIN IV SCH (13:45)
--- NOTE | 2018-11-27 14:49 | Progress Note ---
Assessment and Plan Patient weak and contracted. Patient is awake and resting on 2L O2 via nasal canula. No acute respiratory distress. O2 sat 98%. Patient is afebrile. No change in general condition. Patient undergone debridement of pressure ulcers today. - Patient Problems (1) Respiratory failure Current Visit: Yes Status: Acute Qualifiers: Chronicity: acute Respiratory failure complication: hypoxia Qualified Code(s): J96.01 - Acute respiratory failure with hypoxia Plan to address problem: Continue O2 supplementation 2 L via nasal canula. Albuterol and Atrovent treatment q6h. Patient is on Diptomycine as per infectious diseases. Continue SQ Levonox. Recommend GI prophylexis. (2) Seizure Current Visit: Yes Status: Acute Plan to address problem: Management as per neurologist. (3) Sepsis Current Visit: Yes Status: Acute Plan to address problem: Patient is on Daptomycine as per infectious diseases. (4) UTI (urinary tract infection) Current Visit: Yes Status: Acute Qualifiers: Encounter type: initial encounter Plan to address problem: Patient is on Daptomycine as per infectious diseases. (5) ARF (acute renal failure) with tubular necrosis Current Visit: No Status: Acute Plan to address problem: Management as per Nephrology. Subjective Date of service: 11/27/18 Principal diagnosis: Severe Sepsis; Ac. Hypoxemic Resp failure; Anemia; Seizure; UTI; BPH Interval history: Patient weak and contracted. Patient is awake and resting on 2L O2 via nasal canula. No acute respiratory distress. O2 sat 98%. Patient is afebrile. No change in general condition. Patient undergone debridement of pressure ulcers today. Objective Vital Signs - 12hr 11/27/18 11/27/18 11/27/18 03:41 08:58 09:13 Temperature 98.4 F 98.2 F Pulse Rate 72 61 Pulse Rate [ Anterior Bilateral Throughout] Respiratory 20 18 Rate Respiratory Rate [Anterior Bilateral Throughout] Blood Pressure 123/61 158/63 O2 Sat by Pulse 100 Oximetry 11/27/18 11/27/18 09:32 09:42 Temperature Pulse Rate Pulse Rate [ 74 78 Anterior Bilateral Throughout] Respiratory Rate Respiratory 18 18 Rate [Anterior Bilateral Throughout] Blood Pressure O2 Sat by Pulse 98 Oximetry Constitutional: no acute distress, alert, other (Patient is weak. ) Eyes: non-icteric ENT: oropharynx moist Neck: no lymphadenopathy, no JVD, other (mild stiffness / contracture) Effort: mildly labored Ascultation: Bilateral: diminished breath sounds, rhonchi Percussion: Bilateral: not dull Cardiovascular: regular rate and rhythm Gastrointestinal: normoactive bowel sounds, soft, non-tender, non-distended Integumentary: rash Extremities: no cyanosis, no edema, pulses normal, other (Patient has pressure ulcer at multiple areas, including sacral area.) Neurologic: non-focal exam, pupils equal and round, CN II-XII normal, other (+ contractures) Psychiatric: mood appropriate, affect normal CBC and BMP: 11/26/18 06:20 11/26/18 06:20 ABG, PT/INR, D-dimer: ABG POC ABG pH 7.494 (7.35-7.45) H 11/01/18 15:27 POC ABG pCO2 34.5 (35-45) L 11/01/18 15:27 POC ABG pO2 139 (80-105) H 11/01/18 15:27 POC ABG HCO3 26.5 (22-26 mml/L) 11/01/18 15:27 POC ABG Total CO2 28 (23-27mmol/L) 11/01/18 15:27 POC ABG O2 Sat 99 11/01/18 15:27 PT/INR, D-dimer PT 16.3 Sec. (12.2-14.9) H 11/01/18 14:50 INR 1.35 (0.87-1.13) H 11/01/18 14:50 Abnormal lab findings: Abnormal Labs 11/01/18 11/01/18 11/01/18 14:50 14:50 14:50 WBC 15.3 H RBC 2.76 L Hgb 7.9 L Hct 23.5 L MCH MCHC RDW 18.3 H Plt Count 567 H Lymph % (Auto) 6.5 L [place] % (Auto) 8.5 H Eos % (Auto) Lymph # 1.0 L [place] # 1.3 H Eos # Seg Neutrophils % 83.4 H Seg Neutrophils # 12.7 H PT 16.3 H INR 1.35 H POC ABG pH POC ABG pCO2 POC ABG pO2 VBG pH Sodium Potassium Chloride Carbon Dioxide BUN 49 H Creatinine Glucose 132 H POC Glucose Magnesium AST 90 H ALT 77 H Alkaline Phosphatase 350 H Total Creatine Kinase NT-Pro-B Natriuret Pep Albumin 1.6 L Urine WBC (Auto) Crossmatch 11/01/18 11/01/18 11/01/18 14:50 14:50 15:27 WBC RBC Hgb Hct MCH MCHC RDW Plt Count Lymph % (Auto) [place] % (Auto) Eos % (Auto) Lymph # [place] # Eos # Seg Neutrophils % Seg Neutrophils # PT INR POC ABG pH 7.494 H POC ABG pCO2 34.5 L POC ABG pO2 139 H VBG pH 7.499 H Sodium Potassium Chloride Carbon Dioxide BUN Creatinine Glucose POC Glucose Magnesium AST ALT Alkaline Phosphatase Total Creatine Kinase NT-Pro-B Natriuret Pep 6776 H Albumin Urine WBC (Auto) Crossmatch 11/01/18 11/03/18 11/03/18 15:57 03:41 03:41 WBC 12.8 H RBC 2.55 L Hgb 6.9 L Hct 22.2 L MCH 27 L MCHC 31 L RDW 17.9 H Plt Count 519 H Lymph % (Auto) [place] % (Auto) Eos % (Auto) Lymph # [place] # Eos # Seg Neutrophils % Seg Neutrophils # PT INR POC ABG pH POC ABG pCO2 POC ABG pO2 VBG pH Sodium 147 H Potassium Chloride 110.3 H Carbon Dioxide BUN 55 H Creatinine Glucose POC Glucose Magnesium AST ALT Alkaline Phosphatase Total Creatine Kinase NT-Pro-B Natriuret Pep Albumin Urine WBC (Auto) > 182.0 H Crossmatch 11/03/18 11/04/18 11/04/18 12:51 05:12 05:12 WBC 11.5 H RBC 2.94 L Hgb 8.3 L Hct 25.3 L MCH MCHC RDW 17.3 H Plt Count 514 H Lymph % (Auto) [place] % (Auto) Eos % (Auto) Lymph # [place] # Eos # Seg Neutrophils % Seg Neutrophils # PT INR POC ABG pH POC ABG pCO2 POC ABG pO2 VBG pH Sodium 147 H Potassium Chloride 112.4 H Carbon Dioxide BUN 52 H Creatinine Glucose POC Glucose Magnesium AST ALT Alkaline Phosphatase Total Creatine Kinase NT-Pro-B Natriuret Pep Albumin Urine WBC (Auto) Crossmatch See Detail 11/05/18 11/05/18 11/06/18 04:50 04:50 05:42 WBC RBC 3.03 L 2.80 L Hgb 8.7 L 7.9 L Hct 26.6 L 24.7 L MCH MCHC RDW 17.1 H 17.0 H Plt Count 502 H 478 H Lymph % (Auto) 10.4 L [place] % (Auto) 8.6 H Eos % (Auto) 4.7 H Lymph # 1.0 L [place] # Eos # 0.5 H Seg Neutrophils % 75.6 H Seg Neutrophils # PT INR POC ABG pH POC ABG pCO2 POC ABG pO2 VBG pH Sodium 149 H Potassium Chloride 114.4 H Carbon Dioxide 21 L BUN 50 H Creatinine Glucose 108 H POC Glucose Magnesium AST ALT Alkaline Phosphatase Total Creatine Kinase NT-Pro-B Natriuret Pep Albumin Urine WBC (Auto) Crossmatch 11/06/18 11/11/18 11/12/18 05:42 18:54 00:22 WBC RBC Hgb Hct MCH MCHC RDW Plt Count Lymph % (Auto) [place] % (Auto) Eos % (Auto) Lymph # [place] # Eos # Seg Neutrophils % Seg Neutrophils # PT INR POC ABG pH POC ABG pCO2 POC ABG pO2 VBG pH Sodium 149 H Potassium Chloride 113.4 H Carbon Dioxide BUN 50 H Creatinine Glucose 121 H POC Glucose 114 H 123 H Magnesium AST ALT Alkaline Phosphatase Total Creatine Kinase NT-Pro-B Natriuret Pep Albumin Urine WBC (Auto) Crossmatch 11/12/18 11/12/18 11/13/18 06:49 11:35 06:34 WBC RBC Hgb Hct MCH MCHC RDW Plt Count Lymph % (Auto) [place] % (Auto) Eos % (Auto) Lymph # [place] # Eos # Seg Neutrophils % Seg Neutrophils # PT INR POC ABG pH POC ABG pCO2 POC ABG pO2 VBG pH Sodium Potassium Chloride Carbon Dioxide BUN Creatinine Glucose POC Glucose 129 H 123 H 128 H Magnesium AST ALT Alkaline Phosphatase Total Creatine Kinase NT-Pro-B Natriuret Pep Albumin Urine WBC (Auto) Crossmatch 11/13/18 11/13/18 11/13/18 09:26 09:26 15:13 WBC RBC 3.08 L Hgb 8.6 L Hct 27.3 L MCH MCHC 31 L RDW 18.3 H Plt Count 504 H Lymph % (Auto) 11.7 L [place] % (Auto) 7.5 H Eos % (Auto) 7.0 H Lymph # [place] # Eos # 0.7 H Seg Neutrophils % 72.9 H Seg Neutrophils # PT INR POC ABG pH POC ABG pCO2 POC ABG pO2 VBG pH Sodium 153 H Potassium 6.3 H* 5.8 H Chloride 122.3 H Carbon Dioxide 21 L BUN 38 H Creatinine Glucose 112 H POC Glucose Magnesium AST ALT Alkaline Phosphatase Total Creatine Kinase NT-Pro-B Natriuret Pep Albumin Urine WBC (Auto) Crossmatch 11/13/18 11/13/18 11/14/18 22:10 23:45 13:17 WBC RBC Hgb Hct MCH MCHC RDW Plt Count Lymph % (Auto) [place] % (Auto) Eos % (Auto) Lymph # [place] # Eos # Seg Neutrophils % Seg Neutrophils # PT INR POC ABG pH POC ABG pCO2 POC ABG pO2 VBG pH Sodium 155 H Potassium 5.3 H Chloride 122.3 H Carbon Dioxide BUN 35 H Creatinine Glucose 113 H POC Glucose 111 H 142 H Magnesium AST ALT Alkaline Phosphatase Total Creatine Kinase NT-Pro-B Natriuret Pep Albumin Urine WBC (Auto) Crossmatch 11/14/18 11/15/18 11/15/18 19:08 00:31 06:45 WBC RBC Hgb Hct MCH MCHC RDW Plt Count Lymph % (Auto) [place] % (Auto) Eos % (Auto) Lymph # [place] # Eos # Seg Neutrophils % Seg Neutrophils # PT INR POC ABG pH POC ABG pCO2 POC ABG pO2 VBG pH Sodium Potassium Chloride Carbon Dioxide BUN Creatinine Glucose POC Glucose 116 H 125 H 131 H Magnesium AST ALT Alkaline Phosphatase Total Creatine Kinase NT-Pro-B Natriuret Pep Albumin Urine WBC (Auto) Crossmatch 11/15/18 11/15/18 11/15/18 07:13 07:13 19:03 WBC 13.2 H RBC 2.81 L Hgb 7.8 L Hct 24.5 L MCH MCHC RDW 18.2 H Plt Count 454 H Lymph % (Auto) 9.0 L [place] % (Auto) 7.5 H Eos % (Auto) Lymph # [place] # 1.0 H Eos # 0.5 H Seg Neutrophils % 78.8 H Seg Neutrophils # 10.4 H PT INR POC ABG pH POC ABG pCO2 POC ABG pO2 VBG pH Sodium 149 H Potassium 5.2 H Chloride 117.2 H Carbon Dioxide BUN 38 H Creatinine Glucose 114 H POC Glucose 141 H Magnesium AST ALT Alkaline Phosphatase Total Creatine Kinase NT-Pro-B Natriuret Pep Albumin Urine WBC (Auto) Crossmatch 11/16/18 11/16/18 11/16/18 01:15 01:15 06:45 WBC RBC Hgb Hct MCH MCHC RDW Plt Count Lymph % (Auto) [place] % (Auto) Eos % (Auto) Lymph # [place] # Eos # Seg Neutrophils % Seg Neutrophils # PT INR POC ABG pH POC ABG pCO2 POC ABG pO2 VBG pH Sodium Potassium 5.3 H Chloride Carbon Dioxide BUN Creatinine Glucose POC Glucose 129 H Magnesium 2.60 H AST ALT Alkaline Phosphatase Total Creatine Kinase NT-Pro-B Natriuret Pep Albumin Urine WBC (Auto) Crossmatch 11/16/18 11/16/18 11/17/18 13:20 18:02 00:16 WBC RBC Hgb Hct MCH MCHC RDW Plt Count Lymph % (Auto) [place] % (Auto) Eos % (Auto) Lymph # [place] # Eos # Seg Neutrophils % Seg Neutrophils # PT INR POC ABG pH POC ABG pCO2 POC ABG pO2 VBG pH Sodium Potassium Chloride Carbon Dioxide BUN Creatinine Glucose POC Glucose 130 H 127 H 120 H Magnesium AST ALT Alkaline Phosphatase Total Creatine Kinase NT-Pro-B Natriuret Pep Albumin Urine WBC (Auto) Crossmatch 11/17/18 11/17/18 11/17/18 05:48 08:02 08:02 WBC RBC Hgb 7.5 L Hct 23.5 L MCH MCHC RDW Plt Count Lymph % (Auto) [place] % (Auto) Eos % (Auto) Lymph # [place] # Eos # Seg Neutrophils % Seg Neutrophils # PT INR POC ABG pH POC ABG pCO2 POC ABG pO2 VBG pH Sodium Potassium Chloride 110.1 H Carbon Dioxide 21 L BUN 38 H Creatinine Glucose 121 H POC Glucose 130 H Magnesium AST ALT Alkaline Phosphatase Total Creatine Kinase NT-Pro-B Natriuret Pep Albumin Urine WBC (Auto) Crossmatch 11/17/18 11/17/18 11/18/18 12:17 16:48 06:00 WBC RBC Hgb Hct MCH MCHC RDW Plt Count Lymph % (Auto) [place] % (Auto) Eos % (Auto) Lymph # [place] # Eos # Seg Neutrophils % Seg Neutrophils # PT INR POC ABG pH POC ABG pCO2 POC ABG pO2 VBG pH Sodium Potassium Chloride Carbon Dioxide BUN Creatinine Glucose POC Glucose 140 H 120 H 137 H Magnesium AST ALT Alkaline Phosphatase Total Creatine Kinase NT-Pro-B Natriuret Pep Albumin Urine WBC (Auto) Crossmatch 11/19/18 11/19/18 11/19/18 00:20 05:35 06:11 WBC RBC Hgb Hct MCH MCHC RDW Plt Count Lymph % (Auto) [place] % (Auto) Eos % (Auto) Lymph # [place] # Eos # Seg Neutrophils % Seg Neutrophils # PT INR POC ABG pH POC ABG pCO2 POC ABG pO2 VBG pH Sodium Potassium Chloride Carbon Dioxide BUN Creatinine Glucose POC Glucose 111 H 126 H Magnesium AST ALT Alkaline Phosphatase Total Creatine Kinase 53 L NT-Pro-B Natriuret Pep Albumin Urine WBC (Auto) Crossmatch 11/19/18 11/19/18 11/20/18 11:37 23:43 06:52 WBC RBC Hgb Hct MCH MCHC RDW Plt Count Lymph % (Auto) [place] % (Auto) Eos % (Auto) Lymph # [place] # Eos # Seg Neutrophils % Seg Neutrophils # PT INR POC ABG pH POC ABG pCO2 POC ABG pO2 VBG pH Sodium Potassium Chloride Carbon Dioxide BUN Creatinine Glucose POC Glucose 139 H 145 H 125 H Magnesium AST ALT Alkaline Phosphatase Total Creatine Kinase NT-Pro-B Natriuret Pep Albumin Urine WBC (Auto) Crossmatch 11/20/18 11/20/18 11/20/18 09:55 09:55 11:49 WBC RBC 3.04 L Hgb 8.4 L Hct 26.1 L MCH MCHC RDW 17.5 H Plt Count Lymph % (Auto) [place] % (Auto) Eos % (Auto) Lymph # [place] # Eos # Seg Neutrophils % Seg Neutrophils # PT INR POC ABG pH POC ABG pCO2 POC ABG pO2 VBG pH Sodium 149 H Potassium Chloride 114.5 H Carbon Dioxide 21 L BUN 35 H Creatinine Glucose 127 H POC Glucose 150 H Magnesium AST ALT Alkaline Phosphatase Total Creatine Kinase NT-Pro-B Natriuret Pep Albumin Urine WBC (Auto) Crossmatch 11/20/18 11/20/18 11/21/18 18:02 23:49 06:14 WBC RBC Hgb Hct MCH MCHC RDW Plt Count Lymph % (Auto) [place] % (Auto) Eos % (Auto) Lymph # [place] # Eos # Seg Neutrophils % Seg Neutrophils # PT INR POC ABG pH POC ABG pCO2 POC ABG pO2 VBG pH Sodium Potassium Chloride Carbon Dioxide BUN Creatinine Glucose POC Glucose 131 H 137 H 133 H Magnesium AST ALT Alkaline Phosphatase Total Creatine Kinase NT-Pro-B Natriuret Pep Albumin Urine WBC (Auto) Crossmatch 11/21/18 11/21/18 11/21/18 10:00 12:09 18:04 WBC RBC Hgb Hct MCH MCHC RDW Plt Count Lymph % (Auto) [place] % (Auto) Eos % (Auto) Lymph # [place] # Eos # Seg Neutrophils % Seg Neutrophils # PT INR POC ABG pH POC ABG pCO2 POC ABG pO2 VBG pH Sodium Potassium Chloride 110.6 H Carbon Dioxide BUN 31 H Creatinine Glucose 119 H POC Glucose 116 H 126 H Magnesium AST ALT Alkaline Phosphatase Total Creatine Kinase NT-Pro-B Natriuret Pep Albumin Urine WBC (Auto) Crossmatch 11/22/18 11/22/18 11/22/18 00:14 05:47 06:23 WBC RBC Hgb Hct MCH MCHC RDW Plt Count Lymph % (Auto) [place] % (Auto) Eos % (Auto) Lymph # [place] # Eos # Seg Neutrophils % Seg Neutrophils # PT INR POC ABG pH POC ABG pCO2 POC ABG pO2 VBG pH Sodium Potassium Chloride 107.6 H Carbon Dioxide BUN 32 H Creatinine 0.7 L Glucose 116 H POC Glucose 122 H 119 H Magnesium AST ALT Alkaline Phosphatase Total Creatine Kinase NT-Pro-B Natriuret Pep Albumin Urine WBC (Auto) Crossmatch 11/22/18 11/22/18 11/22/18 08:40 12:19 17:39 WBC RBC Hgb Hct MCH MCHC RDW Plt Count Lymph % (Auto) [place] % (Auto) Eos % (Auto) Lymph # [place] # Eos # Seg Neutrophils % Seg Neutrophils # PT INR POC ABG pH POC ABG pCO2 POC ABG pO2 VBG pH Sodium Potassium Chloride Carbon Dioxide BUN Creatinine Glucose POC Glucose 150 H 111 H 108 H Magnesium AST ALT Alkaline Phosphatase Total Creatine Kinase NT-Pro-B Natriuret Pep Albumin Urine WBC (Auto) Crossmatch 11/23/18 11/23/18 11/23/18 00:36 05:37 05:56 WBC RBC Hgb Hct MCH MCHC RDW Plt Count Lymph % (Auto) [place] % (Auto) Eos % (Auto) Lymph # [place] # Eos # Seg Neutrophils % Seg Neutrophils # PT INR POC ABG pH POC ABG pCO2 POC ABG pO2 VBG pH Sodium 136 L Potassium Chloride Carbon Dioxide BUN 30 H Creatinine 0.7 L Glucose 103 H POC Glucose 125 H 122 H Magnesium 2.50 H AST ALT Alkaline Phosphatase Total Creatine Kinase NT-Pro-B Natriuret Pep Albumin Urine WBC (Auto) Crossmatch 11/23/18 11/23/18 11/23/18 11:56 17:39 23:40 WBC RBC Hgb Hct MCH MCHC RDW Plt Count Lymph % (Auto) [place] % (Auto) Eos % (Auto) Lymph # [place] # Eos # Seg Neutrophils % Seg Neutrophils # PT INR POC ABG pH POC ABG pCO2 POC ABG pO2 VBG pH Sodium Potassium Chloride Carbon Dioxide BUN Creatinine Glucose POC Glucose 121 H 113 H 117 H Magnesium AST ALT Alkaline Phosphatase Total Creatine Kinase NT-Pro-B Natriuret Pep Albumin Urine WBC (Auto) Crossmatch 11/24/18 11/24/18 11/24/18 05:13 12:00 18:13 WBC RBC Hgb Hct MCH MCHC RDW Plt Count Lymph % (Auto) [place] % (Auto) Eos % (Auto) Lymph # [place] # Eos # Seg Neutrophils % Seg Neutrophils # PT INR POC ABG pH POC ABG pCO2 POC ABG pO2 VBG pH Sodium Potassium Chloride Carbon Dioxide BUN Creatinine Glucose POC Glucose 143 H 123 H 124 H Magnesium AST ALT Alkaline Phosphatase Total Creatine Kinase NT-Pro-B Natriuret Pep Albumin Urine WBC (Auto) Crossmatch 11/24/18 11/25/18 11/25/18 23:34 05:25 05:25 WBC RBC 2.48 L Hgb 6.8 L Hct 21.2 L MCH MCHC RDW 17.7 H Plt Count Lymph % (Auto) [place] % (Auto) Eos % (Auto) Lymph # [place] # Eos # Seg Neutrophils % Seg Neutrophils # PT INR POC ABG pH POC ABG pCO2 POC ABG pO2 VBG pH Sodium Potassium Chloride 108.8 H Carbon Dioxide BUN 30 H Creatinine 0.7 L Glucose 112 H POC Glucose 115 H Magnesium AST ALT Alkaline Phosphatase Total Creatine Kinase NT-Pro-B Natriuret Pep Albumin Urine WBC (Auto) Crossmatch 11/25/18 11/25/18 11/25/18 06:46 11:15 11:28 WBC RBC Hgb 7.4 L Hct 23.0 L MCH MCHC RDW Plt Count Lymph % (Auto) [place] % (Auto) Eos % (Auto) Lymph # [place] # Eos # Seg Neutrophils % Seg Neutrophils # PT INR POC ABG pH POC ABG pCO2 POC ABG pO2 VBG pH Sodium Potassium Chloride Carbon Dioxide BUN Creatinine Glucose POC Glucose 133 H 127 H Magnesium AST ALT Alkaline Phosphatase Total Creatine Kinase NT-Pro-B Natriuret Pep Albumin Urine WBC (Auto) Crossmatch 11/25/18 11/25/18 11/25/18 15:28 17:32 23:45 WBC RBC Hgb Hct MCH MCHC RDW Plt Count Lymph % (Auto) [place] % (Auto) Eos % (Auto) Lymph # [place] # Eos # Seg Neutrophils % Seg Neutrophils # PT INR POC ABG pH POC ABG pCO2 POC ABG pO2 VBG pH Sodium Potassium Chloride Carbon Dioxide BUN Creatinine Glucose POC Glucose 115 H 130 H Magnesium AST ALT Alkaline Phosphatase Total Creatine Kinase NT-Pro-B Natriuret Pep Albumin Urine WBC (Auto) Crossmatch See Detail 11/26/18 11/26/18 11/26/18 06:13 06:20 06:20 WBC RBC 2.76 L Hgb 7.7 L Hct 23.4 L MCH MCHC RDW 17.5 H Plt Count Lymph % (Auto) [place] % (Auto) Eos % (Auto) Lymph # [place] # Eos # Seg Neutrophils % Seg Neutrophils # PT INR POC ABG pH POC ABG pCO2 POC ABG pO2 VBG pH Sodium Potassium Chloride 109.9 H Carbon Dioxide BUN 30 H Creatinine 0.6 L Glucose 121 H POC Glucose 129 H Magnesium AST ALT Alkaline Phosphatase Total Creatine Kinase NT-Pro-B Natriuret Pep Albumin Urine WBC (Auto) Crossmatch 11/26/18 11/26/18 11/27/18 12:06 16:35 06:04 WBC RBC Hgb Hct MCH MCHC RDW Plt Count Lymph % (Auto) [place] % (Auto) Eos % (Auto) Lymph # [place] # Eos # Seg Neutrophils % Seg Neutrophils # PT INR POC ABG pH POC ABG pCO2 POC ABG pO2 VBG pH Sodium Potassium Chloride Carbon Dioxide BUN Creatinine Glucose POC Glucose 139 H 107 H 126 H Magnesium AST ALT Alkaline Phosphatase Total Creatine Kinase NT-Pro-B Natriuret Pep Albumin Urine WBC (Auto) Crossmatch 11/27/18 13:14 WBC RBC Hgb Hct MCH MCHC RDW Plt Count Lymph % (Auto) [place] % (Auto) Eos % (Auto) Lymph # [place] # Eos # Seg Neutrophils % Seg Neutrophils # PT INR POC ABG pH POC ABG pCO2 POC ABG pO2 VBG pH Sodium Potassium Chloride Carbon Dioxide BUN Creatinine Glucose POC Glucose 130 H Magnesium AST ALT Alkaline Phosphatase Total Creatine Kinase NT-Pro-B Natriuret Pep Albumin Urine WBC (Auto) Crossmatch Allied health notes reviewed: nursing
--- NOTE | 2018-11-27 14:53 | Progress Note ---
Assessment and Plan /Sepsis with MRSA bacteremia, UTI, Infected decub ulcer POA, osteomyelitis poa - Patient had being multiple admission in the past including this one for similar situation - Previously and during this admission discussed multiple times with family for hospice placement but they refused - Patient was previously discharged with vancomycin for MRSA bacteremia - He readmitted this time while he was on vancomycin and blood cultures was still growing MRSA - Changed antibiotic to daptomycin per ID - at discharge will need daptomycin 400 mg IV q day for 6 weeks until 12/16/2018, Order placed with case management /Sacral pressure ulcer -infected. POA WOUND CARE CONSULTed. CONTINUE ABX. Debridement done by Dr Man Amputation recommended and the daughter refused /Acute on chronic encephalopathy - Due to sepsis and underlying dementia - Continue to provide supportive care / Paroxysmal SVTs -Cardiology was consulted during this admission -Patient was started on Coreg 6.25mg twice a day - Continue to monitor for now, we'll further follow up with cardiology if having SVTs more frequently - We'll monitor potassium, magnesium /Acute hypoxemic Respiratory failure Likely from underlying CHF exacerbation and profound sepsis cont Supplemental oxygen, nebulizer therapy, mgt per pulmonology / CHFeEF 30-35% with exacerbation, poa - Continue to monitor in's and O's, daily weight, aspirin and statin and beta chandan, patient is allergic to ACEI /Anemia of chronic disease Transfused one unit PRBC hemoglobin is stable /Seizure Continue current therapy, seizure precautions. / BPH status post TURP and obstructive uropathy Continue Chaudhary catherter placed by urology during this admission /Chronic Dementia supportive care /DVT prophylaxis Prophylactic lovenox POOR PROGNOSIS Disposition; Arranged family meeting on 11/14 with therapeutic case manager patient's daughters, granddaughter and ex- along with Dr. Wynne. Family still wants to continue the antibiotic treatment, but they mention if antibiotic treatment fails this time and patient continued to spike fever or remains bacteremic with daptomycin then they would possibly consider hospice. Family also considering for DO NOT RESUSCITATE and does not want any life support for the patient, but they did not signed the DNR form yet. Patient will be discharged back to the [facility] as soon as isolation room is available. Brief history: 67-year-old male with history of HTN, CVA, Obstructive Uropathy, Diastolic CHF, Contracture, Sacral Decubitus Ulcers, MS, DM, OA, Seizure Disorder, COPD, Dementia, BPH presents to ED for evaluation. Pt is stuporous and unable to provide history. Pt history taken from ED Staff, EMS, and SNF Staff. As per staff, the patient was found to have respiratory distress upon evaluation this morning. Pt found to have pulse oximetry in the 80's. EMS notified and patient subsequently transported to [facility] for further care and evaluation. Pt seen and evaluated in ED and found to have UTI, Sepsis, Encephalopathy as well as Acute Hypoxemic Respiratory Failure. Pt initiated on NIPPV in ED with improvement in symptoms. Pt admitted to IM and initiated on Sepsis protocol. Prior admission on 10/01/18 reviewed. Extensive discussion with family about patients poor prognosis surgery consulted for possible debridment ID following, Pulmonary status improved Continue isolation care, Chaudhary placed by Urology please do not remove Discharge pending on isolation room availability at the [facility] Hospitalist Physical The patient appeared in no distress. Vital signs as documented. Head exam is unremarkable. No scleral icterus . Neck is without jugular venous distension, thyromegaly, or carotid bruits. Lungs are clear to auscultation. Cardiac exam reveals regular rate and Rhythm. First and second heart sounds normal. No murmurs, rubs or gallops. Abdominal exam reveals normal bowel sounds, no masses, no organomegaly and no aortic enlargement. Extremities contracted extremities. 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 Subjective Date of service: 11/27/18 Principal diagnosis: Severe Sepsis; Ac. Hypoxemic Resp failure; Anemia; Seizure; UTI; BPH Interval history: Patient seen and examined. Medical records and medication list reviewed. No acute event overnight noted by the RN. Discharge pending on placement Objective - Constitutional Vitals: Vital Signs - 12hr 11/27/18 11/27/18 11/27/18 03:41 08:58 09:13 Temperature 98.4 F 98.2 F Pulse Rate 72 61 Pulse Rate [ Anterior Bilateral Throughout] Respiratory 20 18 Rate Respiratory Rate [Anterior Bilateral Throughout] Blood Pressure 123/61 158/63 O2 Sat by Pulse 100 Oximetry 11/27/18 11/27/18 09:32 09:42 Temperature Pulse Rate Pulse Rate [ 74 78 Anterior Bilateral Throughout] Respiratory Rate Respiratory 18 18 Rate [Anterior Bilateral Throughout] Blood Pressure O2 Sat by Pulse 98 Oximetry - Labs CBC & Chem 7: 07/09/19 06:20 11/26/18 06:20 Labs: Abnormal lab results 11/26/18 11/27/18 11/27/18 Range/Units 16:35 06:04 13:14 POC Glucose 107 H 126 H 130 H (70-105)
[2018-11-27] MEDS: SODIUM CHLORIDE FLUSH SYRINGE 10 ML IV SCH ×2 (15:15→22:37)
[2018-11-28] MEDS: DUONEB *Not for PRN Use IH SCH ×2 (07:36→19:39)
--- NOTE | 2018-11-28 08:49 | Progress Note ---
Assessment and Plan Cultures: Blood culture 10/01/2018 MRSA 2 of 4. Blood culture 10/03/2018 MRSA Blood culture 10/08/2018 no growth Blood culture 10/11/2018 no growth Blood culture 10/21/2018 no growth Blood culture 11/01/2018 Staph haemolyticus 2 of 4 bottles, resistent to methicillin and MRSA 1 of 4 bottles Blood culture 11/04/2018 no growth Assessment: 67 y/o male with history of HTN, CVA, Obstructive Uropathy, Contracture, Multiple Decubitus Ulcers, AL, DM, OA, Seizure Disorder, COPD, Dementia, Debility, BPH, well known to ID due to multiple admissions secondary to ducubitus ulcers infections and recurrent bacteremia, last time admitted on 10/02/2018 found with MRSA bacteremia jessica from decubitus ulcers mainly active large left trochanteric with bone exposure and sacral with bone exposure. Patient's infection was deemed incurable and hospice was recommended. Patient was discharged back to [facility] on IV vancomycin 1 gm every 48 hours for total 6 weeks ending 11/12/2018 via neck tunneled cath. Patient was readmitted on due to AMS, worsening SOB. Patient is lethargic and unable to provide history. At the [facility] he was found to have respiratory distress upon evaluation the morning of admission,pulse oximetry in the 80's: 1) Severe Sepsis: Resolved. Etiology most likely Recurrent Staph bacteremia +/- CAUTI. 2) Staph haemolyticus and MRSA bacteremia with recent MRSA bacteremia: Blood culture 11/01/2018 Staph haemolyticus 2 of 4 bottles and MRSA 1 of 4. Source likely multiple decubitus ulcers or Neck IV central line. Patient is failing vancomycin. He has a tunneled neck cath. Recent TTE negative for vegetations. On daptomycin. 3) Recent septic shock due to polymicrobial bacteremia ESBL and carbapenem resistant E coli, MDR Proteus, Strep and E faecalis on 07/29/2018 probably from multiple infected decubitus ulcers and less likely UTI. Repeat blood cultures 07/31/2018 showed same MDR E coli 1 of 4 bottles then 08/06/2018 blood cultures showed no growth. Patient was treated with Vabomere for 14 days. 4) Multiple infected decubitus ulcers: His prognosis has been poor and hospice has been recommended several times in the past but family has declined. declined. His wounds are not curable considering his contractures, bed bound status and poor nutritional status. There was also suspicion of septic arthritis of left hip from decubitus ulcer. S/p debridement of multiple pressure ulcerations on 11/07/2018- stage 4 left hip pressure ulceration was surgically excisionally debrided of necrotic bone, stage 3 sacral, right ankle and left heel pressure ulcers were then surgically, excisionally debrided of necrotic SQ fat, stage 4 right heel, left lateral heel and right lateral leg ulcerations were surgically, excisionally debrided of necrotic SQ tissue, muscle and fascia.. s/p debridement 11/13/18 of multiple stage 3/4 pressure u lcers sacrum, right lateral leg, right lateral ankle, left heel, left hip and right heel Dr Man recommended bilateral AKA, patient and daughter refused. Dr Man recommended Orthopedic consultation for possible left hip disarticulation as his left hip joint is crumbling and has profuse purulent drainage. s/p Debridement of multiple decubitus ulcers 11/19/18 . 5) Recurrent UTI: Fley exchanged while inpatient. 6) Acute encephalopathy: multifactorial. 7) Acute resp failure: was on BIPAP now NC O2. EF 30-35% pericaldial and pleural effusion. Recommendations: - continue Daptomycin IV D25, at discharge, continue daptomycin 400 mg IV q day for total 6 weeks until 12/16/2018, Order placed with case management - Patient colonized with multiple MDROs, 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 Continue contact isolation while inpatient D/W case management Extremely poor prognosis [facility] [employer] [facility] M: [phone] O:[phone] Subjective Date of service: 11/28/18 Principal diagnosis: Severe Sepsis; Ac. Hypoxemic Resp failure; Anemia; Seizure; UTI; BPH Interval history: Patient seen and examined. Asleep, easy to arouse. Reports mild pain today. No fevers. Objective - Exam Narrative Exam: General appearance: Asleep. Easy to arouse. Mild acute pain reported Eyes: anicteric sclerae, moist conjunctivae; no lid-lag; PERRLA HENT: Atraumatic; oropharynx limited Neck: Trachea midline; supple, no thyromegaly or lymphadenopathy Lungs: CTA CV: RRR no murmur Abdomen: Soft, non-tender Extremities: marked legs contractions, multiple decubitus ulcers covered with dressings Skin: multiple skin tears Psych: Calm Neuro: asleep, easy to arouse - Constitutional Vitals: Vital Signs Temp Pulse Resp BP Pulse Ox 98.7 F 88 20 131/70 98 11/28/18 07:45 11/28/18 07:49 11/28/18 07:49 11/28/18 07:45 11/28/18 07:50 Temperature -Last 24 Hours Temperature 98.7 F Temperature 98.2 F Temperature 99.2 F Temperature 98.8 F Temperature 98.2 F - Labs CBC & Chem 7: 11/26/18 06:20 11/26/18 06:20 Labs: Abnormal lab results 11/27/18 11/27/18 11/28/18 Range/Units 13:14 17:47 07:03 POC Glucose 130 H 115 H 118 H (70-105)
[2018-11-28] MEDS: APRESOLINE PO SCH ×2 (09:32→22:29)
[2018-11-28] MEDS: VITAMIN C FEEDTUBE SCH ×2 (09:32→22:30)
[2018-11-28] MEDS: KEPPRA FEEDTUBE SCH ×2 (09:32→22:29)
[2018-11-28] MEDS: COREG PO SCH ×2 (09:32→22:29)
[2018-11-28] MEDS: SODIUM CHLORIDE FLUSH SYRINGE 10 ML IV SCH ×2 (09:32→22:29)
[2018-11-28] MEDS: LOVENOX SUB-Q SCH (09:32)
[2018-11-28] MEDS: ZINC SULFATE PO SCH (10:30)
[2018-11-28] MEDS: Centrum Liq FEEDTUBE SCH (10:31)
[2018-11-28] MEDS: NACL 0.9% IV SCH (11:07)
[2018-11-28] MEDS: DAPTOMYCIN IV SCH (11:07)
--- NOTE | 2018-11-28 11:54 | Progress Note ---
Assessment and Plan Severe Sepsis Acute Hypoxemic Respiratory failure Anemia of chronic disease Seizure UTI (urinary tract infection) BPH Dementia sacral pressure ulcer -infected. POA - continue supplemental oxygen as needed to keep O2 sat's > 90% - continue bronchodilators with pulmonary hygiene per RT - continue aspiration precautions - complete antibiotics per ID rec's (On Daptomycin) - prn BIPAP fort increased work of breathing - prn CXR's - continue Coreg re: SVT - continue AED's for seizure control (Keppra) - continue fall precautions & neurochecks - enteral nutrition as tolerated - continue wound care per WCT - continue bright catheter re: Obstructive Uropathy - GI & VTE prophylaxis - continue mobility protocol for pressure ulcer prophylaxis - continue other care per attending / other consultants ...... remains Full CODE ... re-evaluate in am & prn Subjective Date of service: 11/28/18 Principal diagnosis: Severe Sepsis; Ac. Hypoxemic Resp failure; Anemia; Seizure; UTI; BPH Interval history: Patient is seen today for: Severe Sepsis; Acute Hypoxemic Respiratory failure; Anemia of chronic disease; Seizure; UTI (urinary tract infection); BPH; Dementia; sacral pressure ulcer -infected. POA Seen and examined at bedside; 24-hour events reviewed; nursing and respiratory care staff consulted; no adverse overnight events reported to me; resting peacefully in bed; remains on supplemental oxygen at 2L NC; no emesis or overt aspiration; afebrile Objective Vital Signs - 12hr 11/28/18 11/28/18 11/28/18 03:01 03:05 07:36 Temperature 98.2 F Pulse Rate 89 85 Pulse Rate [ Anterior Bilateral Throughout] Pulse Rate [ Right Radial] Respiratory 20 Rate Respiratory Rate [Anterior Bilateral Throughout] Blood Pressure 117/76 O2 Sat by Pulse 95 95 98 Oximetry 11/28/18 11/28/18 11/28/18 07:37 07:45 07:48 Temperature 98.7 F Pulse Rate 91 H Pulse Rate [ 89 Anterior Bilateral Throughout] Pulse Rate [ 78 Right Radial] Respiratory 20 Rate Respiratory 20 Rate [Anterior Bilateral Throughout] Blood Pressure 131/70 O2 Sat by Pulse 99 96 Oximetry 11/28/18 11/28/18 07:49 07:50 Temperature Pulse Rate Pulse Rate [ 88 Anterior Bilateral Throughout] Pulse Rate [ Right Radial] Respiratory Rate Respiratory 20 Rate [Anterior Bilateral Throughout] Blood Pressure O2 Sat by Pulse 98 Oximetry Constitutional: no acute distress, alert, other (elderly looking AAM, normocephalic with mildly increased resp effort at rest) Eyes: non-icteric ENT: oropharynx moist Neck: no lymphadenopathy, no JVD, other (mild stiffness / contracture) Effort: mildly labored Ascultation: Bilateral: diminished breath sounds, rhonchi Percussion: Bilateral: not dull Cardiovascular: regular rate and rhythm Gastrointestinal: normoactive bowel sounds, soft, non-tender, non-distended Integumentary: rash Extremities: no cyanosis, no edema, pulses normal, other (Patient has pressure ulcer at multiple areas, including sacral area.) Neurologic: non-focal exam, pupils equal and round, CN II-XII normal, other (+ contractures) Psychiatric: mood appropriate, affect normal CBC and BMP: 11/26/18 06:20 11/26/18 06:20 ABG, PT/INR, D-dimer: ABG POC ABG pH 7.494 (7.35-7.45) H 11/01/18 15:27 POC ABG pCO2 34.5 (35-45) L 11/01/18 15:27 POC ABG pO2 139 (80-105) H 11/01/18 15:27 POC ABG HCO3 26.5 (22-26 mml/L) 11/01/18 15:27 POC ABG Total CO2 28 (23-27mmol/L) 11/01/18 15:27 POC ABG O2 Sat 99 11/01/18 15:27 PT/INR, D-dimer PT 16.3 Sec. (12.2-14.9) H 11/01/18 14:50 INR 1.35 (0.87-1.13) H 11/01/18 14:50 Abnormal lab findings: Abnormal Labs 11/01/18 11/01/18 11/01/18 14:50 14:50 14:50 WBC 15.3 H RBC 2.76 L Hgb 7.9 L Hct 23.5 L MCH MCHC RDW 18.3 H Plt Count 567 H Lymph % (Auto) 6.5 L [place] % (Auto) 8.5 H Eos % (Auto) Lymph # 1.0 L [place] # 1.3 H Eos # Seg Neutrophils % 83.4 H Seg Neutrophils # 12.7 H PT 16.3 H INR 1.35 H POC ABG pH POC ABG pCO2 POC ABG pO2 VBG pH Sodium Potassium Chloride Carbon Dioxide BUN 49 H Creatinine Glucose 132 H POC Glucose Magnesium AST 90 H ALT 77 H Alkaline Phosphatase 350 H Total Creatine Kinase NT-Pro-B Natriuret Pep Albumin 1.6 L Urine WBC (Auto) Crossmatch 11/01/18 11/01/18 11/01/18 14:50 14:50 15:27 WBC RBC Hgb Hct MCH MCHC RDW Plt Count Lymph % (Auto) [place] % (Auto) Eos % (Auto) Lymph # [place] # Eos # Seg Neutrophils % Seg Neutrophils # PT INR POC ABG pH 7.494 H POC ABG pCO2 34.5 L POC ABG pO2 139 H VBG pH 7.499 H Sodium Potassium Chloride Carbon Dioxide BUN Creatinine Glucose POC Glucose Magnesium AST ALT Alkaline Phosphatase Total Creatine Kinase NT-Pro-B Natriuret Pep 6776 H Albumin Urine WBC (Auto) Crossmatch 11/01/18 11/03/18 11/03/18 15:57 03:41 03:41 WBC 12.8 H RBC 2.55 L Hgb 6.9 L Hct 22.2 L MCH 27 L MCHC 31 L RDW 17.9 H Plt Count 519 H Lymph % (Auto) [place] % (Auto) Eos % (Auto) Lymph # [place] # Eos # Seg Neutrophils % Seg Neutrophils # PT INR POC ABG pH POC ABG pCO2 POC ABG pO2 VBG pH Sodium 147 H Potassium Chloride 110.3 H Carbon Dioxide BUN 55 H Creatinine Glucose POC Glucose Magnesium AST ALT Alkaline Phosphatase Total Creatine Kinase NT-Pro-B Natriuret Pep Albumin Urine WBC (Auto) > 182.0 H Crossmatch 11/03/18 11/04/18 11/04/18 12:51 05:12 05:12 WBC 11.5 H RBC 2.94 L Hgb 8.3 L Hct 25.3 L MCH MCHC RDW 17.3 H Plt Count 514 H Lymph % (Auto) [place] % (Auto) Eos % (Auto) Lymph # [place] # Eos # Seg Neutrophils % Seg Neutrophils # PT INR POC ABG pH POC ABG pCO2 POC ABG pO2 VBG pH Sodium 147 H Potassium Chloride 112.4 H Carbon Dioxide BUN 52 H Creatinine Glucose POC Glucose Magnesium AST ALT Alkaline Phosphatase Total Creatine Kinase NT-Pro-B Natriuret Pep Albumin Urine WBC (Auto) Crossmatch See Detail 11/05/18 11/05/18 11/06/18 04:50 04:50 05:42 WBC RBC 3.03 L 2.80 L Hgb 8.7 L 7.9 L Hct 26.6 L 24.7 L MCH MCHC RDW 17.1 H 17.0 H Plt Count 502 H 478 H Lymph % (Auto) 10.4 L [place] % (Auto) 8.6 H Eos % (Auto) 4.7 H Lymph # 1.0 L [place] # Eos # 0.5 H Seg Neutrophils % 75.6 H Seg Neutrophils # PT INR POC ABG pH POC ABG pCO2 POC ABG pO2 VBG pH Sodium 149 H Potassium Chloride 114.4 H Carbon Dioxide 21 L BUN 50 H Creatinine Glucose 108 H POC Glucose Magnesium AST ALT Alkaline Phosphatase Total Creatine Kinase NT-Pro-B Natriuret Pep Albumin Urine WBC (Auto) Crossmatch 11/06/18 11/11/18 11/12/18 05:42 18:54 00:22 WBC RBC Hgb Hct MCH MCHC RDW Plt Count Lymph % (Auto) [place] % (Auto) Eos % (Auto) Lymph # [place] # Eos # Seg Neutrophils % Seg Neutrophils # PT INR POC ABG pH POC ABG pCO2 POC ABG pO2 VBG pH Sodium 149 H Potassium Chloride 113.4 H Carbon Dioxide BUN 50 H Creatinine Glucose 121 H POC Glucose 114 H 123 H Magnesium AST ALT Alkaline Phosphatase Total Creatine Kinase NT-Pro-B Natriuret Pep Albumin Urine WBC (Auto) Crossmatch 11/12/18 11/12/18 11/13/18 06:49 11:35 06:34 WBC RBC Hgb Hct MCH MCHC RDW Plt Count Lymph % (Auto) [place] % (Auto) Eos % (Auto) Lymph # [place] # Eos # Seg Neutrophils % Seg Neutrophils # PT INR POC ABG pH POC ABG pCO2 POC ABG pO2 VBG pH Sodium Potassium Chloride Carbon Dioxide BUN Creatinine Glucose POC Glucose 129 H 123 H 128 H Magnesium AST ALT Alkaline Phosphatase Total Creatine Kinase NT-Pro-B Natriuret Pep Albumin Urine WBC (Auto) Crossmatch 11/13/18 11/13/18 11/13/18 09:26 09:26 15:13 WBC RBC 3.08 L Hgb 8.6 L Hct 27.3 L MCH MCHC 31 L RDW 18.3 H Plt Count 504 H Lymph % (Auto) 11.7 L [place] % (Auto) 7.5 H Eos % (Auto) 7.0 H Lymph # [place] # Eos # 0.7 H Seg Neutrophils % 72.9 H Seg Neutrophils # PT INR POC ABG pH POC ABG pCO2 POC ABG pO2 VBG pH Sodium 153 H Potassium 6.3 H* 5.8 H Chloride 122.3 H Carbon Dioxide 21 L BUN 38 H Creatinine Glucose 112 H POC Glucose Magnesium AST ALT Alkaline Phosphatase Total Creatine Kinase NT-Pro-B Natriuret Pep Albumin Urine WBC (Auto) Crossmatch 11/13/18 11/13/18 11/14/18 22:10 23:45 13:17 WBC RBC Hgb Hct MCH MCHC RDW Plt Count Lymph % (Auto) [place] % (Auto) Eos % (Auto) Lymph # [place] # Eos # Seg Neutrophils % Seg Neutrophils # PT INR POC ABG pH POC ABG pCO2 POC ABG pO2 VBG pH Sodium 155 H Potassium 5.3 H Chloride 122.3 H Carbon Dioxide BUN 35 H Creatinine Glucose 113 H POC Glucose 111 H 142 H Magnesium AST ALT Alkaline Phosphatase Total Creatine Kinase NT-Pro-B Natriuret Pep Albumin Urine WBC (Auto) Crossmatch 11/14/18 11/15/18 11/15/18 19:08 00:31 06:45 WBC RBC Hgb Hct MCH MCHC RDW Plt Count Lymph % (Auto) [place] % (Auto) Eos % (Auto) Lymph # [place] # Eos # Seg Neutrophils % Seg Neutrophils # PT INR POC ABG pH POC ABG pCO2 POC ABG pO2 VBG pH Sodium Potassium Chloride Carbon Dioxide BUN Creatinine Glucose POC Glucose 116 H 125 H 131 H Magnesium AST ALT Alkaline Phosphatase Total Creatine Kinase NT-Pro-B Natriuret Pep Albumin Urine WBC (Auto) Crossmatch 11/15/18 11/15/18 11/15/18 07:13 07:13 19:03 WBC 13.2 H RBC 2.81 L Hgb 7.8 L Hct 24.5 L MCH MCHC RDW 18.2 H Plt Count 454 H Lymph % (Auto) 9.0 L [place] % (Auto) 7.5 H Eos % (Auto) Lymph # [place] # 1.0 H Eos # 0.5 H Seg Neutrophils % 78.8 H Seg Neutrophils # 10.4 H PT INR POC ABG pH POC ABG pCO2 POC ABG pO2 VBG pH Sodium 149 H Potassium 5.2 H Chloride 117.2 H Carbon Dioxide BUN 38 H Creatinine Glucose 114 H POC Glucose 141 H Magnesium AST ALT Alkaline Phosphatase Total Creatine Kinase NT-Pro-B Natriuret Pep Albumin Urine WBC (Auto) Crossmatch 11/16/18 11/16/18 11/16/18 01:15 01:15 06:45 WBC RBC Hgb Hct MCH MCHC RDW Plt Count Lymph % (Auto) [place] % (Auto) Eos % (Auto) Lymph # [place] # Eos # Seg Neutrophils % Seg Neutrophils # PT INR POC ABG pH POC ABG pCO2 POC ABG pO2 VBG pH Sodium Potassium 5.3 H Chloride Carbon Dioxide BUN Creatinine Glucose POC Glucose 129 H Magnesium 2.60 H AST ALT Alkaline Phosphatase Total Creatine Kinase NT-Pro-B Natriuret Pep Albumin Urine WBC (Auto) Crossmatch 11/16/18 11/16/18 11/17/18 13:20 18:02 00:16 WBC RBC Hgb Hct MCH MCHC RDW Plt Count Lymph % (Auto) [place] % (Auto) Eos % (Auto) Lymph # [place] # Eos # Seg Neutrophils % Seg Neutrophils # PT INR POC ABG pH POC ABG pCO2 POC ABG pO2 VBG pH Sodium Potassium Chloride Carbon Dioxide BUN Creatinine Glucose POC Glucose 130 H 127 H 120 H Magnesium AST ALT Alkaline Phosphatase Total Creatine Kinase NT-Pro-B Natriuret Pep Albumin Urine WBC (Auto) Crossmatch 11/17/18 11/17/18 11/17/18 05:48 08:02 08:02 WBC RBC Hgb 7.5 L Hct 23.5 L MCH MCHC RDW Plt Count Lymph % (Auto) [place] % (Auto) Eos % (Auto) Lymph # [place] # Eos # Seg Neutrophils % Seg Neutrophils # PT INR POC ABG pH POC ABG pCO2 POC ABG pO2 VBG pH Sodium Potassium Chloride 110.1 H Carbon Dioxide 21 L BUN 38 H Creatinine Glucose 121 H POC Glucose 130 H Magnesium AST ALT Alkaline Phosphatase Total Creatine Kinase NT-Pro-B Natriuret Pep Albumin Urine WBC (Auto) Crossmatch 11/17/18 11/17/18 11/18/18 12:17 16:48 06:00 WBC RBC Hgb Hct MCH MCHC RDW Plt Count Lymph % (Auto) [place] % (Auto) Eos % (Auto) Lymph # [place] # Eos # Seg Neutrophils % Seg Neutrophils # PT INR POC ABG pH POC ABG pCO2 POC ABG pO2 VBG pH Sodium Potassium Chloride Carbon Dioxide BUN Creatinine Glucose POC Glucose 140 H 120 H 137 H Magnesium AST ALT Alkaline Phosphatase Total Creatine Kinase NT-Pro-B Natriuret Pep Albumin Urine WBC (Auto) Crossmatch 11/19/18 11/19/18 11/19/18 00:20 05:35 06:11 WBC RBC Hgb Hct MCH MCHC RDW Plt Count Lymph % (Auto) [place] % (Auto) Eos % (Auto) Lymph # [place] # Eos # Seg Neutrophils % Seg Neutrophils # PT INR POC ABG pH POC ABG pCO2 POC ABG pO2 VBG pH Sodium Potassium Chloride Carbon Dioxide BUN Creatinine Glucose POC Glucose 111 H 126 H Magnesium AST ALT Alkaline Phosphatase Total Creatine Kinase 53 L NT-Pro-B Natriuret Pep Albumin Urine WBC (Auto) Crossmatch 11/19/18 11/19/18 11/20/18 11:37 23:43 06:52 WBC RBC Hgb Hct MCH MCHC RDW Plt Count Lymph % (Auto) [place] % (Auto) Eos % (Auto) Lymph # [place] # Eos # Seg Neutrophils % Seg Neutrophils # PT INR POC ABG pH POC ABG pCO2 POC ABG pO2 VBG pH Sodium Potassium Chloride Carbon Dioxide BUN Creatinine Glucose POC Glucose 139 H 145 H 125 H Magnesium AST ALT Alkaline Phosphatase Total Creatine Kinase NT-Pro-B Natriuret Pep Albumin Urine WBC (Auto) Crossmatch 11/20/18 11/20/18 11/20/18 09:55 09:55 11:49 WBC RBC 3.04 L Hgb 8.4 L Hct 26.1 L MCH MCHC RDW 17.5 H Plt Count Lymph % (Auto) [place] % (Auto) Eos % (Auto) Lymph # [place] # Eos # Seg Neutrophils % Seg Neutrophils # PT INR POC ABG pH POC ABG pCO2 POC ABG pO2 VBG pH Sodium 149 H Potassium Chloride 114.5 H Carbon Dioxide 21 L BUN 35 H Creatinine Glucose 127 H POC Glucose 150 H Magnesium AST ALT Alkaline Phosphatase Total Creatine Kinase NT-Pro-B Natriuret Pep Albumin Urine WBC (Auto) Crossmatch 11/20/18 11/20/18 11/21/18 18:02 23:49 06:14 WBC RBC Hgb Hct MCH MCHC RDW Plt Count Lymph % (Auto) [place] % (Auto) Eos % (Auto) Lymph # [place] # Eos # Seg Neutrophils % Seg Neutrophils # PT INR POC ABG pH POC ABG pCO2 POC ABG pO2 VBG pH Sodium Potassium Chloride Carbon Dioxide BUN Creatinine Glucose POC Glucose 131 H 137 H 133 H Magnesium AST ALT Alkaline Phosphatase Total Creatine Kinase NT-Pro-B Natriuret Pep Albumin Urine WBC (Auto) Crossmatch 11/21/18 11/21/18 11/21/18 10:00 12:09 18:04 WBC RBC Hgb Hct MCH MCHC RDW Plt Count Lymph % (Auto) [place] % (Auto) Eos % (Auto) Lymph # [place] # Eos # Seg Neutrophils % Seg Neutrophils # PT INR POC ABG pH POC ABG pCO2 POC ABG pO2 VBG pH Sodium Potassium Chloride 110.6 H Carbon Dioxide BUN 31 H Creatinine Glucose 119 H POC Glucose 116 H 126 H Magnesium AST ALT Alkaline Phosphatase Total Creatine Kinase NT-Pro-B Natriuret Pep Albumin Urine WBC (Auto) Crossmatch 11/22/18 11/22/18 11/22/18 00:14 05:47 06:23 WBC RBC Hgb Hct MCH MCHC RDW Plt Count Lymph % (Auto) [place] % (Auto) Eos % (Auto) Lymph # [place] # Eos # Seg Neutrophils % Seg Neutrophils # PT INR POC ABG pH POC ABG pCO2 POC ABG pO2 VBG pH Sodium Potassium Chloride 107.6 H Carbon Dioxide BUN 32 H Creatinine 0.7 L Glucose 116 H POC Glucose 122 H 119 H Magnesium AST ALT Alkaline Phosphatase Total Creatine Kinase NT-Pro-B Natriuret Pep Albumin Urine WBC (Auto) Crossmatch 11/22/18 11/22/18 11/22/18 08:40 12:19 17:39 WBC RBC Hgb Hct MCH MCHC RDW Plt Count Lymph % (Auto) [place] % (Auto) Eos % (Auto) Lymph # [place] # Eos # Seg Neutrophils % Seg Neutrophils # PT INR POC ABG pH POC ABG pCO2 POC ABG pO2 VBG pH Sodium Potassium Chloride Carbon Dioxide BUN Creatinine Glucose POC Glucose 150 H 111 H 108 H Magnesium AST ALT Alkaline Phosphatase Total Creatine Kinase NT-Pro-B Natriuret Pep Albumin Urine WBC (Auto) Crossmatch 11/23/18 11/23/18 11/23/18 00:36 05:37 05:56 WBC RBC Hgb Hct MCH MCHC RDW Plt Count Lymph % (Auto) [place] % (Auto) Eos % (Auto) Lymph # [place] # Eos # Seg Neutrophils % Seg Neutrophils # PT INR POC ABG pH POC ABG pCO2 POC ABG pO2 VBG pH Sodium 136 L Potassium Chloride Carbon Dioxide BUN 30 H Creatinine 0.7 L Glucose 103 H POC Glucose 125 H 122 H Magnesium 2.50 H AST ALT Alkaline Phosphatase Total Creatine Kinase NT-Pro-B Natriuret Pep Albumin Urine WBC (Auto) Crossmatch 11/23/18 11/23/18 11/23/18 11:56 17:39 23:40 WBC RBC Hgb Hct MCH MCHC RDW Plt Count Lymph % (Auto) [place] % (Auto) Eos % (Auto) Lymph # [place] # Eos # Seg Neutrophils % Seg Neutrophils # PT INR POC ABG pH POC ABG pCO2 POC ABG pO2 VBG pH Sodium Potassium Chloride Carbon Dioxide BUN Creatinine Glucose POC Glucose 121 H 113 H 117 H Magnesium AST ALT Alkaline Phosphatase Total Creatine Kinase NT-Pro-B Natriuret Pep Albumin Urine WBC (Auto) Crossmatch 11/24/18 11/24/18 11/24/18 05:13 12:00 18:13 WBC RBC Hgb Hct MCH MCHC RDW Plt Count Lymph % (Auto) [place] % (Auto) Eos % (Auto) Lymph # [place] # Eos # Seg Neutrophils % Seg Neutrophils # PT INR POC ABG pH POC ABG pCO2 POC ABG pO2 VBG pH Sodium Potassium Chloride Carbon Dioxide BUN Creatinine Glucose POC Glucose 143 H 123 H 124 H Magnesium AST ALT Alkaline Phosphatase Total Creatine Kinase NT-Pro-B Natriuret Pep Albumin Urine WBC (Auto) Crossmatch 11/24/18 11/25/18 11/25/18 23:34 05:25 05:25 WBC RBC 2.48 L Hgb 6.8 L Hct 21.2 L MCH MCHC RDW 17.7 H Plt Count Lymph % (Auto) [place] % (Auto) Eos % (Auto) Lymph # [place] # Eos # Seg Neutrophils % Seg Neutrophils # PT INR POC ABG pH POC ABG pCO2 POC ABG pO2 VBG pH Sodium Potassium Chloride 108.8 H Carbon Dioxide BUN 30 H Creatinine 0.7 L Glucose 112 H POC Glucose 115 H Magnesium AST ALT Alkaline Phosphatase Total Creatine Kinase NT-Pro-B Natriuret Pep Albumin Urine WBC (Auto) Crossmatch 0711/25/18 11/25/18 06:46 11:15 11:28 WBC RBC Hgb 7.4 L Hct 23.0 L MCH MCHC RDW Plt Count Lymph % (Auto) [place] % (Auto) Eos % (Auto) Lymph # [place] # Eos # Seg Neutrophils % Seg Neutrophils # PT INR POC ABG pH POC ABG pCO2 POC ABG pO2 VBG pH Sodium Potassium Chloride Carbon Dioxide BUN Creatinine Glucose POC Glucose 133 H 127 H Magnesium AST ALT Alkaline Phosphatase Total Creatine Kinase NT-Pro-B Natriuret Pep Albumin Urine WBC (Auto) Crossmatch 11/25/18 11/25/18 11/25/18 15:28 17:32 23:45 WBC RBC Hgb Hct MCH MCHC RDW Plt Count Lymph % (Auto) [place] % (Auto) Eos % (Auto) Lymph # [place] # Eos # Seg Neutrophils % Seg Neutrophils # PT INR POC ABG pH POC ABG pCO2 POC ABG pO2 VBG pH Sodium Potassium Chloride Carbon Dioxide BUN Creatinine Glucose POC Glucose 115 H 130 H Magnesium AST ALT Alkaline Phosphatase Total Creatine Kinase NT-Pro-B Natriuret Pep Albumin Urine WBC (Auto) Crossmatch See Detail 11/26/18 11/26/18 11/26/18 06:13 06:20 06:20 WBC RBC 2.76 L Hgb 7.7 L Hct 23.4 L MCH MCHC RDW 17.5 H Plt Count Lymph % (Auto) [place] % (Auto) Eos % (Auto) Lymph # [place] # Eos # Seg Neutrophils % Seg Neutrophils # PT INR POC ABG pH POC ABG pCO2 POC ABG pO2 VBG pH Sodium Potassium Chloride 109.9 H Carbon Dioxide BUN 30 H Creatinine 0.6 L Glucose 121 H POC Glucose 129 H Magnesium AST ALT Alkaline Phosphatase Total Creatine Kinase NT-Pro-B Natriuret Pep Albumin Urine WBC (Auto) Crossmatch 11/26/18 11/26/18 11/27/18 12:06 16:35 06:04 WBC RBC Hgb Hct MCH MCHC RDW Plt Count Lymph % (Auto) [place] % (Auto) Eos % (Auto) Lymph # [place] # Eos # Seg Neutrophils % Seg Neutrophils # PT INR POC ABG pH POC ABG pCO2 POC ABG pO2 VBG pH Sodium Potassium Chloride Carbon Dioxide BUN Creatinine Glucose POC Glucose 139 H 107 H 126 H Magnesium AST ALT Alkaline Phosphatase Total Creatine Kinase NT-Pro-B Natriuret Pep Albumin Urine WBC (Auto) Crossmatch 11/27/18 11/27/18 11/28/18 13:14 17:47 07:03 WBC RBC Hgb Hct MCH MCHC RDW Plt Count Lymph % (Auto) [place] % (Auto) Eos % (Auto) Lymph # [place] # Eos # Seg Neutrophils % Seg Neutrophils # PT INR POC ABG pH POC ABG pCO2 POC ABG pO2 VBG pH Sodium Potassium Chloride Carbon Dioxide BUN Creatinine Glucose POC Glucose 130 H 115 H 118 H Magnesium AST ALT Alkaline Phosphatase Total Creatine Kinase NT-Pro-B Natriuret Pep Albumin Urine WBC (Auto) Crossmatch 11/28/18 11:38 WBC RBC Hgb Hct MCH MCHC RDW Plt Count Lymph % (Auto) [place] % (Auto) Eos % (Auto) Lymph # [place] # Eos # Seg Neutrophils % Seg Neutrophils # PT INR POC ABG pH POC ABG pCO2 POC ABG pO2 VBG pH Sodium Potassium Chloride Carbon Dioxide BUN Creatinine Glucose POC Glucose 126 H Magnesium AST ALT Alkaline Phosphatase Total Creatine Kinase NT-Pro-B Natriuret Pep Albumin Urine WBC (Auto) Crossmatch Chest x-ray: other (none for my review today) Allied health notes reviewed: nursing
--- NOTE | 2018-11-29 07:56 | Progress Note ---
Assessment and Plan /Sepsis with MRSA bacteremia, UTI, Infected decub ulcer POA, osteomyelitis poa - Patient had being multiple admission in the past including this one for similar situation - Previously and during this admission discussed multiple times with family for hospice placement but they refused - Patient was previously discharged with vancomycin for MRSA bacteremia - He readmitted this time while he was on vancomycin and blood cultures was still growing MRSA - Changed antibiotic to daptomycin per ID - at discharge will need daptomycin 400 mg IV q day for 6 weeks until 12/16/2018, Order placed with case management - per ID, Patient colonized with multiple MDROs, 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 Continue contact isolation while inpatient /Sacral pressure ulcer -infected. POA WOUND CARE CONSULTed. CONTINUE ABX. 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 / BPH status post TURP and obstructive uropathy Continue Chaudhary catherter placed by urology during this admission /Chronic Dementia supportive care /DVT prophylaxis Prophylactic lovenox POOR PROGNOSIS Disposition; Arranged family meeting on 11/14 with case mgr patient's daughters, granddaughter and ex- along with Dr. Wynne. Family still wants to continue the antibiotic treatment, but they mention if antibiotic treatment fails this time and patient continued to spike fever or remains bacteremic with daptomycin then they would possibly consider hospice. Family also considering for DO NOT RESUSCITATE and does not want any life support for the patient, but they did not signed the DNR form yet. Patient will be discharged back to the [facility] as soon as isolation room is available. Brief history: 67-year-old male with history of HTN, CVA, Obstructive Uropathy, Diastolic CHF, Contracture, Sacral Decubitus Ulcers, ID, DM, OA, Seizure Disorder, COPD, Dementia, BPH presents to ED for evaluation. Pt is stuporous and unable to provide history. Pt history taken from ED Staff, EMS, and SNF Staff. As per staff, the patient was found to have respiratory distress upon evaluation this morning. Pt found to have pulse oximetry in the 80's. EMS notified and patient subsequently transported to [facility] for further care and evaluation. Pt seen and evaluated in ED and found to have UTI, Sepsis, Encephalopathy as well as Acute Hypoxemic Respiratory Failure. Pt initiated on NIPPV in ED with improvement in symptoms. Pt admitted to IM and initiated on Sepsis protocol. Prior admission on 10/01/18 reviewed. Extensive discussion with family about patients poor prognosis surgery consulted for possible debridment ID following, Pulmonary status improved Continue isolation care, Chaudhary placed by Urology please do not remove Discharge pending on isolation room availability at the [facility] Hospitalist Physical The patient appeared in no distress. Vital signs as documented. Head exam is unremarkable. No scleral icterus . Neck is without jugular venous distension, thyromegaly, or carotid bruits. Lungs are clear to auscultation. Cardiac exam reveals regular rate and Rhythm. First and second heart sounds normal. No murmurs, rubs or gallops. Abdominal exam reveals normal bowel sounds, no masses, no organomegaly and no aortic enlargement. Extremities contracted extremities. [employer]: Does not follow command, contracted extremities Skin; multiple decubitus ulcers, including the sacrum and the heel. Subjective Date of service: 11/28/18 Principal diagnosis: Severe Sepsis; Ac. Hypoxemic Resp failure; Anemia; Seizure; UTI; BPH Interval history: Patient seen and examined. Medical records and medication list reviewed. No acute event overnight noted by the RN. Discharge pending on placement Objective - Constitutional Vitals: Vital Signs - 12hr 11/28/18 11/28/18 11/28/18 19:59 20:26 20:33 Temperature 98.2 F Pulse Rate 97 H Pulse Rate [ 96 H Anterior Bilateral Throughout] Pulse Rate [ Right Radial] Respiratory 24 Rate Respiratory 20 Rate [Anterior Bilateral Throughout] Blood Pressure Blood Pressure 127/77 [Left] O2 Sat by Pulse 96 Oximetry 11/28/18 11/29/18 11/29/18 22:00 01:45 07:29 Temperature 98.8 F 99.3 F Pulse Rate 85 82 87 Pulse Rate [ Anterior Bilateral Throughout] Pulse Rate [ 97 H Right Radial] Respiratory 24 24 20 Rate Respiratory Rate [Anterior Bilateral Throughout] Blood Pressure 106/63 134/63 Blood Pressure [Left] O2 Sat by Pulse 96 97 99 Oximetry - Labs CBC & Chem 7: 11/26/18 06:20 11/26/18 06:20 Labs: Abnormal lab results 11/28/18 11/29/18 11/29/18 Range/Units 11:38 00:35 04:56 POC Glucose 126 H 107 H (70-105) Total Creatine Kinase 50 L (55-170) units/L 11/29/18 Range/Units 05:49 POC Glucose 128 H (70-105) Total Creatine Kinase (55-170) units/L
[2018-11-29] MEDS: DUONEB *Not for PRN Use IH SCH ×2 (09:23→21:34)
--- NOTE | 2018-11-29 09:37 | Progress Note ---
Assessment and Plan Cultures: Blood culture 10/01/2018 MRSA 2 of 4. Blood culture 10/03/2018 MRSA Blood culture 10/08/2018 no growth Blood culture 10/11/2018 no growth Blood culture 10/21/2018 no growth Blood culture 11/01/2018 Staph haemolyticus 2 of 4 bottles, resistent to methicillin and MRSA 1 of 4 bottles Blood culture 11/04/2018 no growth Assessment: 67 y/o male with history of HTN, CVA, Obstructive Uropathy, Contracture, Multiple Decubitus Ulcers, UT, DM, OA, Seizure Disorder, COPD, Dementia, Debility, BPH, well known to ID due to multiple admissions secondary to ducubitus ulcers infections and recurrent bacteremia, last time admitted on 10/02/2018 found with MRSA bacteremia jessica from decubitus ulcers mainly active large left trochanteric with bone exposure and sacral with bone exposure. Patient's infection was deemed incurable and hospice was recommended. Patient was discharged back to [facility] on IV vancomycin 1 gm every 48 hours for total 6 weeks ending 11/12/2018 via neck tunneled cath. Patient was readmitted on due to AMS, worsening SOB. Patient is lethargic and unable to provide history. At the [facility] he was found to have respiratory distress upon evaluation the morning of admission,pulse oximetry in the 80's: 1) Severe Sepsis: Resolved. Etiology most likely Recurrent Staph bacteremia +/- CAUTI. 2) Staph haemolyticus and MRSA bacteremia with recent MRSA bacteremia: Blood culture 11/01/2018 Staph haemolyticus 2 of 4 bottles and MRSA 1 of 4. Source likely multiple decubitus ulcers or Neck IV central line. Patient is failing vancomycin. He has a tunneled neck cath. Recent TTE negative for vegetations. On daptomycin. 3) Recent septic shock due to polymicrobial bacteremia ESBL and carbapenem resistant E coli, MDR Proteus, Strep and E faecalis on 07/29/2018 probably from multiple infected decubitus ulcers and less likely UTI. Repeat blood cultures 07/31/2018 showed same MDR E coli 1 of 4 bottles then 08/06/2018 blood cultures showed no growth. Patient was treated with Vabomere for 14 days. 4) Multiple infected decubitus ulcers: His prognosis has been poor and hospice has been recommended several times in the past but family has declined. declined. His wounds are not curable considering his contractures, bed bound status and poor nutritional status. There was also suspicion of septic arthritis of left hip from decubitus ulcer. S/p debridement of multiple pressure ulcerations on 11/07/2018- stage 4 left hip pressure ulceration was surgically excisionally debrided of necrotic bone, stage 3 sacral, right ankle and left heel pressure ulcers were then surgically, excisionally debrided of necrotic SQ fat, stage 4 right heel, left lateral heel and right lateral leg ulcerations were surgically, excisionally debrided of necrotic SQ tissue, muscle and fascia.. s/p debridement 11/13/18 of multiple stage 3/4 pressure ulcers sacrum, right lateral leg, right lateral ankle, left heel, left hip and right heel Dr. Man recommended bilateral AKA, patient and daughter refused. Dr Man recommended Orthopedic consultation for possible left hip disarticulation as his left hip joint is crumbling and has profuse purulent drainage. s/p Debridement of multiple decubitus ulcers 11/19/18 . 5) Recurrent UTI: Chaudhary exchanged while inpatient. 6) Acute encephalopathy: multifactorial. 7) Acute resp failure: was on BIPAP now NC O2. EF 30-35% pericaldial and pleural effusion. 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 He needs to be on contact isolation. This cannot be cured with antibiotics -Continued medical care is futile and this has been explained to the family multiple times previously -CK ordered for tomorrow. D/W case management. Extremely poor prognosis Dr. Dillon will be fire investigation lieutenant this weekend, , please call for questions. Jacquie Jean Baptiste NP [facility] M: [phone] O:[phone] Subjective Date of service: 11/29/18 Principal diagnosis: Severe Sepsis; Ac. Hypoxemic Resp failure; Anemia; Seizure; UTI; BPH Interval history: Patient seen and examined. Asleep, easy to arouse. Reports mild pain today. No fevers. Objective - Exam Narrative Exam: General appearance: Asleep. Easy to arouse. Mild acute pain reported Eyes: anicteric sclerae, moist conjunctivae; no lid-lag; PERRLA HENT: Atraumatic; oropharynx limited Neck: Trachea midline; supple, no thyromegaly or lymphadenopathy Lungs: CTA CV: RRR no murmur Abdomen: Soft, non-tender Extremities: marked legs contractions, multiple decubitus ulcers covered with dressings Skin: multiple skin tears Psych: Calm Neuro: asleep, easy to arouse - Constitutional Vitals: Vital Signs Temp Pulse Resp BP Pulse Ox 99.3 F 87 20 134/63 99 11/29/18 07:29 11/29/18 07:29 11/29/18 07:29 11/29/18 07:29 11/29/18 07:29 Temperature -Last 24 Hours Temperature 99.3 F Temperature 98.8 F Temperature 98.2 F Temperature 98 F - Labs CBC & Chem 7: 11/26/18 06:20 11/26/18 06:20 Labs: Abnormal lab results 11/28/18 11/29/18 11/29/18 Range/Units 11:38 00:35 04:56 POC Glucose 126 H 107 H (70-105) Total Creatine Kinase 50 L (55-170) units/L 11/29/18 Range/Units 05:49 POC Glucose 128 H (70-105) Total Creatine Kinase (55-170) units/L
[2018-11-29] MEDS: LOVENOX SUB-Q SCH (11:18)
[2018-11-29] MEDS: ZINC SULFATE PO SCH (11:18)
[2018-11-29] MEDS: COREG PO SCH ×2 (11:19→22:37)
[2018-11-29] MEDS: APRESOLINE PO SCH ×2 (11:19→22:36)
[2018-11-29] MEDS: KEPPRA FEEDTUBE SCH ×2 (11:20→22:37)
[2018-11-29] MEDS: Centrum Liq FEEDTUBE SCH (11:20)
[2018-11-29] MEDS: VITAMIN C FEEDTUBE SCH ×2 (11:20→22:36)
[2018-11-29] MEDS: SODIUM CHLORIDE FLUSH SYRINGE 10 ML IV SCH ×2 (11:21→22:38)
--- NOTE | 2018-11-29 13:43 | Progress Note ---
Assessment and Plan Severe Sepsis Acute Hypoxemic Respiratory failure Anemia of chronic disease Seizure UTI (urinary tract infection) BPH Dementia sacral pressure ulcer -infected. POA - prn supplemental oxygen as needed to keep O2 sat's > 90% - continue bronchodilators with pulmonary hygiene per RT - continue aspiration precautions - complete antibiotics per ID rec's (On Daptomycin) - prn BIPAP fort increased work of breathing - prn CXR's - continue Coreg re: SVT - continue AED's for seizure control (Keppra) - continue fall precautions & neurochecks - enteral nutrition as tolerated - continue wound care per WCT - continue bright catheter re: Obstructive Uropathy - GI & VTE prophylaxis - continue mobility protocol for pressure ulcer prophylaxis - continue other care per attending / other consultants ...... remains Full CODE ... re-evaluate in am & prn Subjective Date of service: 11/29/18 Principal diagnosis: Severe Sepsis; Ac. Hypoxemic Resp failure; Anemia; Seizure; UTI; BPH Interval history: Patient is seen today for: Severe Sepsis; Acute Hypoxemic Respiratory failure; Anemia of chronic disease; Seizure; UTI (urinary tract infection); BPH; Dementia; sacral pressure ulcer -infected. POA Seen and examined at bedside; 24-hour events reviewed; nursing and respiratory care staff consulted; no adverse overnight events reported to me; resting peacefully in bed; still on antibiotic therapy; denies acute pain issues; denies SOB but with mildly increased respiratory effort at rest Objective Vital Signs - 12hr 11/29/18 11/29/18 11/29/18 01:45 07:29 11:19 Temperature 98.8 F 99.3 F Pulse Rate 82 87 87 Respiratory 24 20 Rate Blood Pressure 106/63 134/63 134/63 O2 Sat by Pulse 97 99 Oximetry Constitutional: no acute distress, alert, other (elderly looking AAM, normocephalic with mildly increased resp effort at rest) Eyes: non-icteric ENT: oropharynx moist Neck: no lymphadenopathy, no JVD, other (mild stiffness / contracture) Effort: mildly labored Ascultation: Bilateral: diminished breath sounds, rhonchi Percussion: Bilateral: not dull Cardiovascular: regular rate and rhythm Gastrointestinal: normoactive bowel sounds, soft, non-tender, non-distended Integumentary: rash Extremities: no cyanosis, no edema, pulses normal, other (Patient has pressure ulcer at multiple areas, including sacral area.) Neurologic: non-focal exam, pupils equal and round, CN II-XII normal, other (+ contractures) Psychiatric: mood appropriate, affect normal CBC and BMP: 12/12/18 00:05 12/06/18 20:57 ABG, PT/INR, D-dimer: ABG POC ABG pH 7.494 (7.35-7.45) H 11/01/18 15:27 POC ABG pCO2 34.5 (35-45) L 11/01/18 15:27 POC ABG pO2 139 (80-105) H 11/01/18 15:27 POC ABG HCO3 26.5 (22-26 mml/L) 11/01/18 15:27 POC ABG Total CO2 28 (23-27mmol/L) 11/01/18 15:27 POC ABG O2 Sat 99 11/01/18 15:27 PT/INR, D-dimer PT 16.3 Sec. (12.2-14.9) H 11/01/18 14:50 INR 1.35 (0.87-1.13) H 11/01/18 14:50 Abnormal lab findings: Abnormal Labs 11/01/18 11/01/18 11/01/18 14:50 14:50 14:50 WBC 15.3 H RBC 2.76 L Hgb 7.9 L Hct 23.5 L MCH MCHC RDW 18.3 H Plt Count 567 H Lymph % (Auto) 6.5 L [place] % (Auto) 8.5 H Eos % (Auto) Lymph # 1.0 L [place] # 1.3 H Eos # Seg Neutrophils % 83.4 H Seg Neutrophils # 12.7 H PT 16.3 H INR 1.35 H POC ABG pH POC ABG pCO2 POC ABG pO2 VBG pH Sodium Potassium Chloride Carbon Dioxide BUN 49 H Creatinine Glucose 132 H POC Glucose Magnesium AST 90 H ALT 77 H Alkaline Phosphatase 350 H Total Creatine Kinase NT-Pro-B Natriuret Pep Albumin 1.6 L Urine WBC (Auto) Crossmatch 11/01/18 11/01/18 11/01/18 14:50 14:50 15:27 WBC RBC Hgb Hct MCH MCHC RDW Plt Count Lymph % (Auto) [place] % (Auto) Eos % (Auto) Lymph # [place] # Eos # Seg Neutrophils % Seg Neutrophils # PT INR POC ABG pH 7.494 H POC ABG pCO2 34.5 L POC ABG pO2 139 H VBG pH 7.499 H Sodium Potassium Chloride Carbon Dioxide BUN Creatinine Glucose POC Glucose Magnesium AST ALT Alkaline Phosphatase Total Creatine Kinase NT-Pro-B Natriuret Pep 6776 H Albumin Urine WBC (Auto) Crossmatch 11/01/18 11/03/18 11/03/18 15:57 03:41 03:41 WBC 12.8 H RBC 2.55 L Hgb 6.9 L Hct 22.2 L MCH 27 L MCHC 31 L RDW 17.9 H Plt Count 519 H Lymph % (Auto) [place] % (Auto) Eos % (Auto) Lymph # [place] # Eos # Seg Neutrophils % Seg Neutrophils # PT INR POC ABG pH POC ABG pCO2 POC ABG pO2 VBG pH Sodium 147 H Potassium Chloride 110.3 H Carbon Dioxide BUN 55 H Creatinine Glucose POC Glucose Magnesium AST ALT Alkaline Phosphatase Total Creatine Kinase NT-Pro-B Natriuret Pep Albumin Urine WBC (Auto) > 182.0 H Crossmatch 11/03/18 11/04/18 11/04/18 12:51 05:12 05:12 WBC 11.5 H RBC 2.94 L Hgb 8.3 L Hct 25.3 L MCH MCHC RDW 17.3 H Plt Count 514 H Lymph % (Auto) [place] % (Auto) Eos % (Auto) Lymph # [place] # Eos # Seg Neutrophils % Seg Neutrophils # PT INR POC ABG pH POC ABG pCO2 POC ABG pO2 VBG pH Sodium 147 H Potassium Chloride 112.4 H Carbon Dioxide BUN 52 H Creatinine Glucose POC Glucose Magnesium AST ALT Alkaline Phosphatase Total Creatine Kinase NT-Pro-B Natriuret Pep Albumin Urine WBC (Auto) Crossmatch See Detail 11/05/18 11/05/18 11/06/18 04:50 04:50 05:42 WBC RBC 3.03 L 2.80 L Hgb 8.7 L 7.9 L Hct 26.6 L 24.7 L MCH MCHC RDW 17.1 H 17.0 H Plt Count 502 H 478 H Lymph % (Auto) 10.4 L [place] % (Auto) 8.6 H Eos % (Auto) 4.7 H Lymph # 1.0 L [place] # Eos # 0.5 H Seg Neutrophils % 75.6 H Seg Neutrophils # PT INR POC ABG pH POC ABG pCO2 POC ABG pO2 VBG pH Sodium 149 H Potassium Chloride 114.4 H Carbon Dioxide 21 L BUN 50 H Creatinine Glucose 108 H POC Glucose Magnesium AST ALT Alkaline Phosphatase Total Creatine Kinase NT-Pro-B Natriuret Pep Albumin Urine WBC (Auto) Crossmatch 11/06/18 11/11/18 11/12/18 05:42 18:54 00:22 WBC RBC Hgb Hct MCH MCHC RDW Plt Count Lymph % (Auto) [place] % (Auto) Eos % (Auto) Lymph # [place] # Eos # Seg Neutrophils % Seg Neutrophils # PT INR POC ABG pH POC ABG pCO2 POC ABG pO2 VBG pH Sodium 149 H Potassium Chloride 113.4 H Carbon Dioxide BUN 50 H Creatinine Glucose 121 H POC Glucose 114 H 123 H Magnesium AST ALT Alkaline Phosphatase Total Creatine Kinase NT-Pro-B Natriuret Pep Albumin Urine WBC (Auto) Crossmatch 11/12/18 11/12/18 11/13/18 06:49 11:35 06:34 WBC RBC Hgb Hct MCH MCHC RDW Plt Count Lymph % (Auto) [place] % (Auto) Eos % (Auto) Lymph # [place] # Eos # Seg Neutrophils % Seg Neutrophils # PT INR POC ABG pH POC ABG pCO2 POC ABG pO2 VBG pH Sodium Potassium Chloride Carbon Dioxide BUN Creatinine Glucose POC Glucose 129 H 123 H 128 H Magnesium AST ALT Alkaline Phosphatase Total Creatine Kinase NT-Pro-B Natriuret Pep Albumin Urine WBC (Auto) Crossmatch 11/13/18 11/13/18 11/13/18 09:26 09:26 15:13 WBC RBC 3.08 L Hgb 8.6 L Hct 27.3 L MCH MCHC 31 L RDW 18.3 H Plt Count 504 H Lymph % (Auto) 11.7 L [place] % (Auto) 7.5 H Eos % (Auto) 7.0 H Lymph # [place] # Eos # 0.7 H Seg Neutrophils % 72.9 H Seg Neutrophils # PT INR POC ABG pH POC ABG pCO2 POC ABG pO2 VBG pH Sodium 153 H Potassium 6.3 H* 5.8 H Chloride 122.3 H Carbon Dioxide 21 L BUN 38 H Creatinine Glucose 112 H POC Glucose Magnesium AST ALT Alkaline Phosphatase Total Creatine Kinase NT-Pro-B Natriuret Pep Albumin Urine WBC (Auto) Crossmatch 11/13/18 11/13/18 11/14/18 22:10 23:45 13:17 WBC RBC Hgb Hct MCH MCHC RDW Plt Count Lymph % (Auto) [place] % (Auto) Eos % (Auto) Lymph # [place] # Eos # Seg Neutrophils % Seg Neutrophils # PT INR POC ABG pH POC ABG pCO2 POC ABG pO2 VBG pH Sodium 155 H Potassium 5.3 H Chloride 122.3 H Carbon Dioxide BUN 35 H Creatinine Glucose 113 H POC Glucose 111 H 142 H Magnesium AST ALT Alkaline Phosphatase Total Creatine Kinase NT-Pro-B Natriuret Pep Albumin Urine WBC (Auto) Crossmatch 11/14/18 11/15/18 11/15/18 19:08 00:31 06:45 WBC RBC Hgb Hct MCH MCHC RDW Plt Count Lymph % (Auto) [place] % (Auto) Eos % (Auto) Lymph # [place] # Eos # Seg Neutrophils % Seg Neutrophils # PT INR POC ABG pH POC ABG pCO2 POC ABG pO2 VBG pH Sodium Potassium Chloride Carbon Dioxide BUN Creatinine Glucose POC Glucose 116 H 125 H 131 H Magnesium AST ALT Alkaline Phosphatase Total Creatine Kinase NT-Pro-B Natriuret Pep Albumin Urine WBC (Auto) Crossmatch 11/15/18 11/15/18 11/15/18 07:13 07:13 19:03 WBC 13.2 H RBC 2.81 L Hgb 7.8 L Hct 24.5 L MCH MCHC RDW 18.2 H Plt Count 454 H Lymph % (Auto) 9.0 L [place] % (Auto) 7.5 H Eos % (Auto) Lymph # [place] # 1.0 H Eos # 0.5 H Seg Neutrophils % 78.8 H Seg Neutrophils # 10.4 H PT INR POC ABG pH POC ABG pCO2 POC ABG pO2 VBG pH Sodium 149 H Potassium 5.2 H Chloride 117.2 H Carbon Dioxide BUN 38 H Creatinine Glucose 114 H POC Glucose 141 H Magnesium AST ALT Alkaline Phosphatase Total Creatine Kinase NT-Pro-B Natriuret Pep Albumin Urine WBC (Auto) Crossmatch 11/16/18 11/16/18 11/16/18 01:15 01:15 06:45 WBC RBC Hgb Hct MCH MCHC RDW Plt Count Lymph % (Auto) [place] % (Auto) Eos % (Auto) Lymph # [place] # Eos # Seg Neutrophils % Seg Neutrophils # PT INR POC ABG pH POC ABG pCO2 POC ABG pO2 VBG pH Sodium Potassium 5.3 H Chloride Carbon Dioxide BUN Creatinine Glucose POC Glucose 129 H Magnesium 2.60 H AST ALT Alkaline Phosphatase Total Creatine Kinase NT-Pro-B Natriuret Pep Albumin Urine WBC (Auto) Crossmatch 11/16/18 11/16/18 11/17/18 13:20 18:02 00:16 WBC RBC Hgb Hct MCH MCHC RDW Plt Count Lymph % (Auto) [place] % (Auto) Eos % (Auto) Lymph # [place] # Eos # Seg Neutrophils % Seg Neutrophils # PT INR POC ABG pH POC ABG pCO2 POC ABG pO2 VBG pH Sodium Potassium Chloride Carbon Dioxide BUN Creatinine Glucose POC Glucose 130 H 127 H 120 H Magnesium AST ALT Alkaline Phosphatase Total Creatine Kinase NT-Pro-B Natriuret Pep Albumin Urine WBC (Auto) Crossmatch 11/17/18 11/17/18 11/17/18 05:48 08:02 08:02 WBC RBC Hgb 7.5 L Hct 23.5 L MCH MCHC RDW Plt Count Lymph % (Auto) [place] % (Auto) Eos % (Auto) Lymph # [place] # Eos # Seg Neutrophils % Seg Neutrophils # PT INR POC ABG pH POC ABG pCO2 POC ABG pO2 VBG pH Sodium Potassium Chloride 110.1 H Carbon Dioxide 21 L BUN 38 H Creatinine Glucose 121 H POC Glucose 130 H Magnesium AST ALT Alkaline Phosphatase Total Creatine Kinase NT-Pro-B Natriuret Pep Albumin Urine WBC (Auto) Crossmatch 11/17/18 11/17/18 11/18/18 12:17 16:48 06:00 WBC RBC Hgb Hct MCH MCHC RDW Plt Count Lymph % (Auto) [place] % (Auto) Eos % (Auto) Lymph # [place] # Eos # Seg Neutrophils % Seg Neutrophils # PT INR POC ABG pH POC ABG pCO2 POC ABG pO2 VBG pH Sodium Potassium Chloride Carbon Dioxide BUN Creatinine Glucose POC Glucose 140 H 120 H 137 H Magnesium AST ALT Alkaline Phosphatase Total Creatine Kinase NT-Pro-B Natriuret Pep Albumin Urine WBC (Auto) Crossmatch 11/19/18 11/19/18 11/19/18 00:20 05:35 06:11 WBC RBC Hgb Hct MCH MCHC RDW Plt Count Lymph % (Auto) [place] % (Auto) Eos % (Auto) Lymph # [place] # Eos # Seg Neutrophils % Seg Neutrophils # PT INR POC ABG pH POC ABG pCO2 POC ABG pO2 VBG pH Sodium Potassium Chloride Carbon Dioxide BUN Creatinine Glucose POC Glucose 111 H 126 H Magnesium AST ALT Alkaline Phosphatase Total Creatine Kinase 53 L NT-Pro-B Natriuret Pep Albumin Urine WBC (Auto) Crossmatch 11/19/18 11/19/18 11/20/18 11:37 23:43 06:52 WBC RBC Hgb Hct MCH MCHC RDW Plt Count Lymph % (Auto) [place] % (Auto) Eos % (Auto) Lymph # [place] # Eos # Seg Neutrophils % Seg Neutrophils # PT INR POC ABG pH POC ABG pCO2 POC ABG pO2 VBG pH Sodium Potassium Chloride Carbon Dioxide BUN Creatinine Glucose POC Glucose 139 H 145 H 125 H Magnesium AST ALT Alkaline Phosphatase Total Creatine Kinase NT-Pro-B Natriuret Pep Albumin Urine WBC (Auto) Crossmatch 11/20/18 11/20/18 11/20/18 09:55 09:55 11:49 WBC RBC 3.04 L Hgb 8.4 L Hct 26.1 L MCH MCHC RDW 17.5 H Plt Count Lymph % (Auto) [place] % (Auto) Eos % (Auto) Lymph # [place] # Eos # Seg Neutrophils % Seg Neutrophils # PT INR POC ABG pH POC ABG pCO2 POC ABG pO2 VBG pH Sodium 149 H Potassium Chloride 114.5 H Carbon Dioxide 21 L BUN 35 H Creatinine Glucose 127 H POC Glucose 150 H Magnesium AST ALT Alkaline Phosphatase Total Creatine Kinase NT-Pro-B Natriuret Pep Albumin Urine WBC (Auto) Crossmatch 11/20/18 11/20/18 11/21/18 18:02 23:49 06:14 WBC RBC Hgb Hct MCH MCHC RDW Plt Count Lymph % (Auto) [place] % (Auto) Eos % (Auto) Lymph # [place] # Eos # Seg Neutrophils % Seg Neutrophils # PT INR POC ABG pH POC ABG pCO2 POC ABG pO2 VBG pH Sodium Potassium Chloride Carbon Dioxide BUN Creatinine Glucose POC Glucose 131 H 137 H 133 H Magnesium AST ALT Alkaline Phosphatase Total Creatine Kinase NT-Pro-B Natriuret Pep Albumin Urine WBC (Auto) Crossmatch 11/21/18 11/21/18 11/21/18 10:00 12:09 18:04 WBC RBC Hgb Hct MCH MCHC RDW Plt Count Lymph % (Auto) [place] % (Auto) Eos % (Auto) Lymph # [place] # Eos # Seg Neutrophils % Seg Neutrophils # PT INR POC ABG pH POC ABG pCO2 POC ABG pO2 VBG pH Sodium Potassium Chloride 110.6 H Carbon Dioxide BUN 31 H Creatinine Glucose 119 H POC Glucose 116 H 126 H Magnesium AST ALT Alkaline Phosphatase Total Creatine Kinase NT-Pro-B Natriuret Pep Albumin Urine WBC (Auto) Crossmatch 11/22/18 11/22/18 11/22/18 00:14 05:47 06:23 WBC RBC Hgb Hct MCH MCHC RDW Plt Count Lymph % (Auto) [place] % (Auto) Eos % (Auto) Lymph # [place] # Eos # Seg Neutrophils % Seg Neutrophils # PT INR POC ABG pH POC ABG pCO2 POC ABG pO2 VBG pH Sodium Potassium Chloride 107.6 H Carbon Dioxide BUN 32 H Creatinine 0.7 L Glucose 116 H POC Glucose 122 H 119 H Magnesium AST ALT Alkaline Phosphatase Total Creatine Kinase NT-Pro-B Natriuret Pep Albumin Urine WBC (Auto) Crossmatch 11/22/18 11/22/18 11/22/18 08:40 12:19 17:39 WBC RBC Hgb Hct MCH MCHC RDW Plt Count Lymph % (Auto) [place] % (Auto) Eos % (Auto) Lymph # [place] # Eos # Seg Neutrophils % Seg Neutrophils # PT INR POC ABG pH POC ABG pCO2 POC ABG pO2 VBG pH Sodium Potassium Chloride Carbon Dioxide BUN Creatinine Glucose POC Glucose 150 H 111 H 108 H Magnesium AST ALT Alkaline Phosphatase Total Creatine Kinase NT-Pro-B Natriuret Pep Albumin Urine WBC (Auto) Crossmatch 11/23/18 11/23/18 11/23/18 00:36 05:37 05:56 WBC RBC Hgb Hct MCH MCHC RDW Plt Count Lymph % (Auto) [place] % (Auto) Eos % (Auto) Lymph # [place] # Eos # Seg Neutrophils % Seg Neutrophils # PT INR POC ABG pH POC ABG pCO2 POC ABG pO2 VBG pH Sodium 136 L Potassium Chloride Carbon Dioxide BUN 30 H Creatinine 0.7 L Glucose 103 H POC Glucose 125 H 122 H Magnesium 2.50 H AST ALT Alkaline Phosphatase Total Creatine Kinase NT-Pro-B Natriuret Pep Albumin Urine WBC (Auto) Crossmatch 11/23/18 11/23/18 11/23/18 11:56 17:39 23:40 WBC RBC Hgb Hct MCH MCHC RDW Plt Count Lymph % (Auto) [place] % (Auto) Eos % (Auto) Lymph # [place] # Eos # Seg Neutrophils % Seg Neutrophils # PT INR POC ABG pH POC ABG pCO2 POC ABG pO2 VBG pH Sodium Potassium Chloride Carbon Dioxide BUN Creatinine Glucose POC Glucose 121 H 113 H 117 H Magnesium AST ALT Alkaline Phosphatase Total Creatine Kinase NT-Pro-B Natriuret Pep Albumin Urine WBC (Auto) Crossmatch 11/24/18 11/24/18 11/24/18 05:13 12:00 18:13 WBC RBC Hgb Hct MCH MCHC RDW Plt Count Lymph % (Auto) [place] % (Auto) Eos % (Auto) Lymph # [place] # Eos # Seg Neutrophils % Seg Neutrophils # PT INR POC ABG pH POC ABG pCO2 POC ABG pO2 VBG pH Sodium Potassium Chloride Carbon Dioxide BUN Creatinine Glucose POC Glucose 143 H 123 H 124 H Magnesium AST ALT Alkaline Phosphatase Total Creatine Kinase NT-Pro-B Natriuret Pep Albumin Urine WBC (Auto) Crossmatch 11/24/18 11/25/18 11/25/18 23:34 05:25 05:25 WBC RBC 2.48 L Hgb 6.8 L Hct 21.2 L MCH MCHC RDW 17.7 H Plt Count Lymph % (Auto) [place] % (Auto) Eos % (Auto) Lymph # [place] # Eos # Seg Neutrophils % Seg Neutrophils # PT INR POC ABG pH POC ABG pCO2 POC ABG pO2 VBG pH Sodium Potassium Chloride 108.8 H Carbon Dioxide BUN 30 H Creatinine 0.7 L Glucose 112 H POC Glucose 115 H Magnesium AST ALT Alkaline Phosphatase Total Creatine Kinase NT-Pro-B Natriuret Pep Albumin Urine WBC (Auto) Crossmatch 11/25/18 11/25/18 11/25/18 06:46 11:15 11:28 WBC RBC Hgb 7.4 L Hct 23.0 L MCH MCHC RDW Plt Count Lymph % (Auto) [place] % (Auto) Eos % (Auto) Lymph # [place] # Eos # Seg Neutrophils % Seg Neutrophils # PT INR POC ABG pH POC ABG pCO2 POC ABG pO2 VBG pH Sodium Potassium Chloride Carbon Dioxide BUN Creatinine Glucose POC Glucose 133 H 127 H Magnesium AST ALT Alkaline Phosphatase Total Creatine Kinase NT-Pro-B Natriuret Pep Albumin Urine WBC (Auto) Crossmatch 07/01/0611/25/18 11/25/18 15:28 17:32 23:45 WBC RBC Hgb Hct MCH MCHC RDW Plt Count Lymph % (Auto) [place] % (Auto) Eos % (Auto) Lymph # [place] # Eos # Seg Neutrophils % Seg Neutrophils # PT INR POC ABG pH POC ABG pCO2 POC ABG pO2 VBG pH Sodium Potassium Chloride Carbon Dioxide BUN Creatinine Glucose POC Glucose 115 H 130 H Magnesium AST ALT Alkaline Phosphatase Total Creatine Kinase NT-Pro-B Natriuret Pep Albumin Urine WBC (Auto) Crossmatch See Detail 11/26/18 11/26/18 11/26/18 06:13 06:20 06:20 WBC RBC 2.76 L Hgb 7.7 L Hct 23.4 L MCH MCHC RDW 17.5 H Plt Count Lymph % (Auto) [place] % (Auto) Eos % (Auto) Lymph # [place] # Eos # Seg Neutrophils % Seg Neutrophils # PT INR POC ABG pH POC ABG pCO2 POC ABG pO2 VBG pH Sodium Potassium Chloride 109.9 H Carbon Dioxide BUN 30 H Creatinine 0.6 L Glucose 121 H POC Glucose 129 H Magnesium AST ALT Alkaline Phosphatase Total Creatine Kinase NT-Pro-B Natriuret Pep Albumin Urine WBC (Auto) Crossmatch 11/26/18 11/26/18 11/27/18 12:06 16:35 06:04 WBC RBC Hgb Hct MCH MCHC RDW Plt Count Lymph % (Auto) [place] % (Auto) Eos % (Auto) Lymph # [place] # Eos # Seg Neutrophils % Seg Neutrophils # PT INR POC ABG pH POC ABG pCO2 POC ABG pO2 VBG pH Sodium Potassium Chloride Carbon Dioxide BUN Creatinine Glucose POC Glucose 139 H 107 H 126 H Magnesium AST ALT Alkaline Phosphatase Total Creatine Kinase NT-Pro-B Natriuret Pep Albumin Urine WBC (Auto) Crossmatch 11/27/18 11/27/18 11/28/18 13:14 17:47 07:03 WBC RBC Hgb Hct MCH MCHC RDW Plt Count Lymph % (Auto) [place] % (Auto) Eos % (Auto) Lymph # [place] # Eos # Seg Neutrophils % Seg Neutrophils # PT INR POC ABG pH POC ABG pCO2 POC ABG pO2 VBG pH Sodium Potassium Chloride Carbon Dioxide BUN Creatinine Glucose POC Glucose 130 H 115 H 118 H Magnesium AST ALT Alkaline Phosphatase Total Creatine Kinase NT-Pro-B Natriuret Pep Albumin Urine WBC (Auto) Crossmatch 11/28/18 11/29/18 11/29/18 11:38 00:35 04:56 WBC RBC Hgb Hct MCH MCHC RDW Plt Count Lymph % (Auto) [place] % (Auto) Eos % (Auto) Lymph # [place] # Eos # Seg Neutrophils % Seg Neutrophils # PT INR POC ABG pH POC ABG pCO2 POC ABG pO2 VBG pH Sodium Potassium Chloride Carbon Dioxide BUN Creatinine Glucose POC Glucose 126 H 107 H Magnesium AST ALT Alkaline Phosphatase Total Creatine Kinase 50 L NT-Pro-B Natriuret Pep Albumin Urine WBC (Auto) Crossmatch 11/29/18 11/29/18 05:49 11:46 WBC RBC Hgb Hct MCH MCHC RDW Plt Count Lymph % (Auto) [place] % (Auto) Eos % (Auto) Lymph # [place] # Eos # Seg Neutrophils % Seg Neutrophils # PT INR POC ABG pH POC ABG pCO2 POC ABG pO2 VBG pH Sodium Potassium Chloride Carbon Dioxide BUN Creatinine Glucose POC Glucose 128 H 140 H Magnesium AST ALT Alkaline Phosphatase Total Creatine Kinase NT-Pro-B Natriuret Pep Albumin Urine WBC (Auto) Crossmatch Chest x-ray: pending Allied health notes reviewed: nursing
--- NOTE | 2018-11-29 15:02 | Progress Note ---
Assessment and Plan /Sepsis with MRSA bacteremia, UTI, Infected decub ulcer POA, osteomyelitis poa - Patient had being multiple admission in the past including this one for similar situation - Previously and during this admission discussed multiple times with family for hospice placement but they refused - Patient was previously discharged with vancomycin for MRSA bacteremia - He readmitted this time while he was on vancomycin and blood cultures was still growing MRSA - Changed antibiotic to daptomycin per ID - at discharge will need daptomycin 400 mg IV q day for 6 weeks until 12/16/2018, Order placed with case management - per ID, Patient colonized with multiple MDROs, 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 Continue contact isolation while inpatient /Sacral pressure ulcer -infected. POA WOUND CARE CONSULTed. CONTINUE ABX. 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 / BPH status post TURP and obstructive uropathy Continue Chaudhary catherter placed by urology during this admission /Chronic Dementia supportive care /DVT prophylaxis Prophylactic lovenox POOR PROGNOSIS Disposition; Arranged family meeting on 11/14 with family preservation caseworker patient's daughters, granddaughter and ex- along with Dr. Wynne. Family still wants to continue the antibiotic treatment, but they mention if antibiotic treatment fails this time and patient continued to spike fever or remains bacteremic with daptomycin then they would possibly consider hospice. Family also considering for DO NOT RESUSCITATE and does not want any life support for the patient, but they did not signed the DNR form yet. Patient will be discharged back to the residential/[facility] as soon as isolation room is available. Brief history: 67-year-old male with history of HTN, CVA, Obstructive Uropathy, Diastolic CHF, Contracture, Sacral Decubitus Ulcers, MA, DM, OA, Seizure Disorder, COPD, Dementia, BPH presents to ED for evaluation. Pt is stuporous and unable to provide history. Pt history taken from ED Staff, EMS, and SNF Staff. As per staff, the patient was found to have respiratory distress upon evaluation this morning. Pt found to have pulse oximetry in the 80's. EMS notified and patient subsequently transported to [facility] for further care and evaluation. Pt seen and evaluated in ED and found to have UTI, Sepsis, Encephalopathy as well as Acute Hypoxemic Respiratory Failure. Pt initiated on NIPPV in ED with improvement in symptoms. Pt admitted to IM and initiated on Sepsis protocol. Prior admission on 10/01/18 reviewed. Extensive discussion with family about patients poor prognosis surgery consulted for possible debridment ID following, Pulmonary status improved Continue isolation care, Chaudhary placed by Urology please do not remove Discharge pending on isolation room availability at the residential Hospitalist Physical The patient appeared in no distress. Vital signs as documented. Head exam is unremarkable. No scleral icterus . Neck is without jugular venous distension, thyromegaly, or carotid bruits. Lungs are clear to auscultation. Cardiac exam reveals regular rate and Rhythm. First and second heart sounds normal. No murmurs, rubs or gallops. Abdominal exam reveals normal bowel sounds, no masses, no organomegaly and no aortic enlargement. Extremities contracted extremities. 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 Subjective Date of service: 11/29/18 Principal diagnosis: Severe Sepsis; Ac. Hypoxemic Resp failure; Anemia; Seizure; UTI; BPH Interval history: Patient seen and examined. Medical records and medication list reviewed. No acute event overnight noted by the RN. Discharge pending on placement Objective - Constitutional Vitals: Vital Signs - 12hr 11/29/18 11/29/18 07:29 11:19 Temperature 99.3 F Pulse Rate 87 87 Respiratory 20 Rate Blood Pressure 134/63 134/63 O2 Sat by Pulse 99 Oximetry - Labs CBC & Chem 7: 11/30/18 03:30 11/30/18 03:30 Labs: Abnormal lab results 11/29/18 11/29/18 11/29/18 Range/Units 00:35 04:56 05:49 POC Glucose 107 H 128 H (70-105) Total Creatine Kinase 50 L (55-170) units/L 11/29/18 Range/Units 11:46 POC Glucose 140 H (70-105) Total Creatine Kinase (55-170) units/L
[2018-11-29] MEDS: NACL 0.9% IV SCH (18:14)
[2018-11-29] MEDS: DAPTOMYCIN IV SCH (18:14)
[2018-11-30 03:52] LABS: Basophils # (Auto) 0.1 K/mm3 (0.0-0.1); Basophils % (Auto) 0.6 % (0.0-1.8); Eosinophils # (Auto) 0.5 K/mm3 (0.0-0.4); Eosinophils % (Auto) 4.6 % (0.0-4.3); Hematocrit 25.5 % (35.5-45.6); Hemoglobin 8.1 gm/dl (11.8-15.2); Lymphocytes % (Auto) 9.2 % (13.4-35.0); Mean Corpuscular HGB Conc 32 % (32-34); Mean Corpuscular Volume 86 fl (84-94); Monocytes # (Auto) 1.1 K/mm3 (0.0-0.8); Platelet Count 429 K/mm3 (140-440); Red Blood Count 2.97 M/mm3 (3.65-5.03); Red Cell Distribution Width 17.7 % (13.2-15.2)
[2018-11-30 04:13] LABS: BUN/Creatinine Ratio 44; Blood Urea Nitrogen 31 mg/dL (9-20); Calcium 9.5 mg/dL (8.4-10.2); Hemolysis Index 0
[2018-11-30] MEDS: DUONEB *Not for PRN Use IH SCH ×2 (07:40→20:16)
--- NOTE | 2018-11-30 10:22 | Progress Note ---
Assessment and Plan . Patient weak and contracted. Bed ridden. Patient is sleeping and on 2L O2 via nasal canula. No acute respiratory distress. O2 sat 98%. Patient is afebrile. No change in general condition. - Patient Problems (1) Respiratory failure Current Visit: Yes Status: Acute Qualifiers: Chronicity: acute Respiratory failure complication: hypoxia Qualified Code(s): J96.01 - Acute respiratory failure with hypoxia Plan to address problem: Continue O2 supplementation 2 L via nasal canula. Albuterol and Atrovent treatment q6h. Patient is on Diptomycine as per infectious diseases. Continue SQ Levonox. Recommend GI prophylexis. (2) Seizure Current Visit: Yes Status: Acute Plan to address problem: Management as per neurologist. (3) Sepsis Current Visit: Yes Status: Acute Plan to address problem: Patient is on Daptomycine as per infectious diseases. (4) UTI (urinary tract infection) Current Visit: Yes Status: Acute Qualifiers: Encounter type: initial encounter Plan to address problem: Patient is on Daptomycine as per infectious diseases. (5) ARF (acute renal failure) with tubular necrosis Current Visit: No Status: Acute Plan to address problem: Management as per Nephrology. Subjective Date of service: 11/30/18 Principal diagnosis: Severe Sepsis; Ac. Hypoxemic Resp failure; Anemia; Seizure; UTI; BPH Interval history: Patient weak and contracted. Bed ridden. Patient is sleeping and on 2L O2 via nasal canula. No acute respiratory distress. O2 sat 98%. Patient is afebrile. No change in general condition. Objective Vital Signs - 12hr 11/29/18 11/29/18 11/30/18 22:36 22:37 03:10 Temperature 99.2 F Pulse Rate 89 89 80 Pulse Rate [ Anterior Bilateral Throughout] Respiratory 24 Rate Respiratory Rate [Anterior Bilateral Throughout] Blood Pressure 142/72 142/72 115/60 O2 Sat by Pulse 98 Oximetry 11/30/18 11/30/18 11/30/18 07:46 08:00 08:10 Temperature 98.7 F Pulse Rate 83 Pulse Rate [ 83 84 Anterior Bilateral Throughout] Respiratory 18 Rate Respiratory 18 18 Rate [Anterior Bilateral Throughout] Blood Pressure 140/68 O2 Sat by Pulse 98 Oximetry 11/30/18 09:06 Temperature Pulse Rate Pulse Rate [ Anterior Bilateral Throughout] Respiratory Rate Respiratory Rate [Anterior Bilateral Throughout] Blood Pressure O2 Sat by Pulse 98 Oximetry Constitutional: no acute distress, alert, other (elderly looking AAM, normocephalic with mildly increased resp effort at rest) Eyes: non-icteric ENT: oropharynx moist Neck: no lymphadenopathy, no JVD, other (mild stiffness / contracture) Effort: mildly labored Ascultation: Bilateral: diminished breath sounds, rhonchi Percussion: Bilateral: not dull Cardiovascular: regular rate and rhythm Gastrointestinal: normoactive bowel sounds, soft, non-tender, non-distended Integumentary: rash Extremities: no cyanosis, no edema, pulses normal, other (Patient has pressure ulcer at multiple areas, including sacral area.) Neurologic: non-focal exam, pupils equal and round, CN II-XII normal, other (+ contractures) Psychiatric: mood appropriate, affect normal CBC and BMP: 11/30/18 03:30 11/30/18 03:30 ABG, PT/INR, D-dimer: ABG POC ABG pH 7.494 (7.35-7.45) H 11/01/18 15:27 POC ABG pCO2 34.5 (35-45) L 11/01/18 15:27 POC ABG pO2 139 (80-105) H 11/01/18 15:27 POC ABG HCO3 26.5 (22-26 mml/L) 11/01/18 15:27 POC ABG Total CO2 28 (23-27mmol/L) 11/01/18 15:27 POC ABG O2 Sat 99 11/01/18 15:27 PT/INR, D-dimer PT 16.3 Sec. (12.2-14.9) H 11/01/18 14:50 INR 1.35 (0.87-1.13) H 11/01/18 14:50 Abnormal lab findings: Abnormal Labs 11/01/18 11/01/18 11/01/18 14:50 14:50 14:50 WBC 15.3 H RBC 2.76 L Hgb 7.9 L Hct 23.5 L MCH MCHC RDW 18.3 H Plt Count 567 H Lymph % (Auto) 6.5 L [place] % (Auto) 8.5 H Eos % (Auto) Lymph # 1.0 L [place] # 1.3 H Eos # Seg Neutrophils % 83.4 H Seg Neutrophils # 12.7 H PT 16.3 H INR 1.35 H POC ABG pH POC ABG pCO2 POC ABG pO2 VBG pH Sodium Potassium Chloride Carbon Dioxide BUN 49 H Creatinine Glucose 132 H POC Glucose Magnesium AST 90 H ALT 77 H Alkaline Phosphatase 350 H Total Creatine Kinase NT-Pro-B Natriuret Pep Albumin 1.6 L Urine WBC (Auto) Crossmatch 11/01/18 11/01/18 11/01/18 14:50 14:50 15:27 WBC RBC Hgb Hct MCH MCHC RDW Plt Count Lymph % (Auto) [place] % (Auto) Eos % (Auto) Lymph # [place] # Eos # Seg Neutrophils % Seg Neutrophils # PT INR POC ABG pH 7.494 H POC ABG pCO2 34.5 L POC ABG pO2 139 H VBG pH 7.499 H Sodium Potassium Chloride Carbon Dioxide BUN Creatinine Glucose POC Glucose Magnesium AST ALT Alkaline Phosphatase Total Creatine Kinase NT-Pro-B Natriuret Pep 6776 H Albumin Urine WBC (Auto) Crossmatch 11/01/18 11/03/18 11/03/18 15:57 03:41 03:41 WBC 12.8 H RBC 2.55 L Hgb 6.9 L Hct 22.2 L MCH 27 L MCHC 31 L RDW 17.9 H Plt Count 519 H Lymph % (Auto) [place] % (Auto) Eos % (Auto) Lymph # [place] # Eos # Seg Neutrophils % Seg Neutrophils # PT INR POC ABG pH POC ABG pCO2 POC ABG pO2 VBG pH Sodium 147 H Potassium Chloride 110.3 H Carbon Dioxide BUN 55 H Creatinine Glucose POC Glucose Magnesium AST ALT Alkaline Phosphatase Total Creatine Kinase NT-Pro-B Natriuret Pep Albumin Urine WBC (Auto) > 182.0 H Crossmatch 11/03/18 11/04/18 11/04/18 12:51 05:12 05:12 WBC 11.5 H RBC 2.94 L Hgb 8.3 L Hct 25.3 L MCH MCHC RDW 17.3 H Plt Count 514 H Lymph % (Auto) [place] % (Auto) Eos % (Auto) Lymph # [place] # Eos # Seg Neutrophils % Seg Neutrophils # PT INR POC ABG pH POC ABG pCO2 POC ABG pO2 VBG pH Sodium 147 H Potassium Chloride 112.4 H Carbon Dioxide BUN 52 H Creatinine Glucose POC Glucose Magnesium AST ALT Alkaline Phosphatase Total Creatine Kinase NT-Pro-B Natriuret Pep Albumin Urine WBC (Auto) Crossmatch See Detail 11/05/18 11/05/18 11/06/18 04:50 04:50 05:42 WBC RBC 3.03 L 2.80 L Hgb 8.7 L 7.9 L Hct 26.6 L 24.7 L MCH MCHC RDW 17.1 H 17.0 H Plt Count 502 H 478 H Lymph % (Auto) 10.4 L [place] % (Auto) 8.6 H Eos % (Auto) 4.7 H Lymph # 1.0 L [place] # Eos # 0.5 H Seg Neutrophils % 75.6 H Seg Neutrophils # PT INR POC ABG pH POC ABG pCO2 POC ABG pO2 VBG pH Sodium 149 H Potassium Chloride 114.4 H Carbon Dioxide 21 L BUN 50 H Creatinine Glucose 108 H POC Glucose Magnesium AST ALT Alkaline Phosphatase Total Creatine Kinase NT-Pro-B Natriuret Pep Albumin Urine WBC (Auto) Crossmatch 11/06/18 11/11/18 11/12/18 05:42 18:54 00:22 WBC RBC Hgb Hct MCH MCHC RDW Plt Count Lymph % (Auto) [place] % (Auto) Eos % (Auto) Lymph # [place] # Eos # Seg Neutrophils % Seg Neutrophils # PT INR POC ABG pH POC ABG pCO2 POC ABG pO2 VBG pH Sodium 149 H Potassium Chloride 113.4 H Carbon Dioxide BUN 50 H Creatinine Glucose 121 H POC Glucose 114 H 123 H Magnesium AST ALT Alkaline Phosphatase Total Creatine Kinase NT-Pro-B Natriuret Pep Albumin Urine WBC (Auto) Crossmatch 11/12/18 11/12/18 11/13/18 06:49 11:35 06:34 WBC RBC Hgb Hct MCH MCHC RDW Plt Count Lymph % (Auto) [place] % (Auto) Eos % (Auto) Lymph # [place] # Eos # Seg Neutrophils % Seg Neutrophils # PT INR POC ABG pH POC ABG pCO2 POC ABG pO2 VBG pH Sodium Potassium Chloride Carbon Dioxide BUN Creatinine Glucose POC Glucose 129 H 123 H 128 H Magnesium AST ALT Alkaline Phosphatase Total Creatine Kinase NT-Pro-B Natriuret Pep Albumin Urine WBC (Auto) Crossmatch 11/13/18 11/13/18 11/13/18 09:26 09:26 15:13 WBC RBC 3.08 L Hgb 8.6 L Hct 27.3 L MCH MCHC 31 L RDW 18.3 H Plt Count 504 H Lymph % (Auto) 11.7 L [place] % (Auto) 7.5 H Eos % (Auto) 7.0 H Lymph # [place] # Eos # 0.7 H Seg Neutrophils % 72.9 H Seg Neutrophils # PT INR POC ABG pH POC ABG pCO2 POC ABG pO2 VBG pH Sodium 153 H Potassium 6.3 H* 5.8 H Chloride 122.3 H Carbon Dioxide 21 L BUN 38 H Creatinine Glucose 112 H POC Glucose Magnesium AST ALT Alkaline Phosphatase Total Creatine Kinase NT-Pro-B Natriuret Pep Albumin Urine WBC (Auto) Crossmatch 11/13/18 11/13/18 11/14/18 22:10 23:45 13:17 WBC RBC Hgb Hct MCH MCHC RDW Plt Count Lymph % (Auto) [place] % (Auto) Eos % (Auto) Lymph # [place] # Eos # Seg Neutrophils % Seg Neutrophils # PT INR POC ABG pH POC ABG pCO2 POC ABG pO2 VBG pH Sodium 155 H Potassium 5.3 H Chloride 122.3 H Carbon Dioxide BUN 35 H Creatinine Glucose 113 H POC Glucose 111 H 142 H Magnesium AST ALT Alkaline Phosphatase Total Creatine Kinase NT-Pro-B Natriuret Pep Albumin Urine WBC (Auto) Crossmatch 11/14/18 11/15/18 11/15/18 19:08 00:31 06:45 WBC RBC Hgb Hct MCH MCHC RDW Plt Count Lymph % (Auto) [place] % (Auto) Eos % (Auto) Lymph # [place] # Eos # Seg Neutrophils % Seg Neutrophils # PT INR POC ABG pH POC ABG pCO2 POC ABG pO2 VBG pH Sodium Potassium Chloride Carbon Dioxide BUN Creatinine Glucose POC Glucose 116 H 125 H 131 H Magnesium AST ALT Alkaline Phosphatase Total Creatine Kinase NT-Pro-B Natriuret Pep Albumin Urine WBC (Auto) Crossmatch 11/15/18 11/15/18 11/15/18 07:13 07:13 19:03 WBC 13.2 H RBC 2.81 L Hgb 7.8 L Hct 24.5 L MCH MCHC RDW 18.2 H Plt Count 454 H Lymph % (Auto) 9.0 L [place] % (Auto) 7.5 H Eos % (Auto) Lymph # [place] # 1.0 H Eos # 0.5 H Seg Neutrophils % 78.8 H Seg Neutrophils # 10.4 H PT INR POC ABG pH POC ABG pCO2 POC ABG pO2 VBG pH Sodium 149 H Potassium 5.2 H Chloride 117.2 H Carbon Dioxide BUN 38 H Creatinine Glucose 114 H POC Glucose 141 H Magnesium AST ALT Alkaline Phosphatase Total Creatine Kinase NT-Pro-B Natriuret Pep Albumin Urine WBC (Auto) Crossmatch 11/16/18 11/16/18 11/16/18 01:15 01:15 06:45 WBC RBC Hgb Hct MCH MCHC RDW Plt Count Lymph % (Auto) [place] % (Auto) Eos % (Auto) Lymph # [place] # Eos # Seg Neutrophils % Seg Neutrophils # PT INR POC ABG pH POC ABG pCO2 POC ABG pO2 VBG pH Sodium Potassium 5.3 H Chloride Carbon Dioxide BUN Creatinine Glucose POC Glucose 129 H Magnesium 2.60 H AST ALT Alkaline Phosphatase Total Creatine Kinase NT-Pro-B Natriuret Pep Albumin Urine WBC (Auto) Crossmatch 11/16/18 11/16/18 11/17/18 13:20 18:02 00:16 WBC RBC Hgb Hct MCH MCHC RDW Plt Count Lymph % (Auto) [place] % (Auto) Eos % (Auto) Lymph # [place] # Eos # Seg Neutrophils % Seg Neutrophils # PT INR POC ABG pH POC ABG pCO2 POC ABG pO2 VBG pH Sodium Potassium Chloride Carbon Dioxide BUN Creatinine Glucose POC Glucose 130 H 127 H 120 H Magnesium AST ALT Alkaline Phosphatase Total Creatine Kinase NT-Pro-B Natriuret Pep Albumin Urine WBC (Auto) Crossmatch 11/17/18 11/17/18 11/17/18 05:48 08:02 08:02 WBC RBC Hgb 7.5 L Hct 23.5 L MCH MCHC RDW Plt Count Lymph % (Auto) [place] % (Auto) Eos % (Auto) Lymph # [place] # Eos # Seg Neutrophils % Seg Neutrophils # PT INR POC ABG pH POC ABG pCO2 POC ABG pO2 VBG pH Sodium Potassium Chloride 110.1 H Carbon Dioxide 21 L BUN 38 H Creatinine Glucose 121 H POC Glucose 130 H Magnesium AST ALT Alkaline Phosphatase Total Creatine Kinase NT-Pro-B Natriuret Pep Albumin Urine WBC (Auto) Crossmatch 11/17/18 11/17/18 11/18/18 12:17 16:48 06:00 WBC RBC Hgb Hct MCH MCHC RDW Plt Count Lymph % (Auto) [place] % (Auto) Eos % (Auto) Lymph # [place] # Eos # Seg Neutrophils % Seg Neutrophils # PT INR POC ABG pH POC ABG pCO2 POC ABG pO2 VBG pH Sodium Potassium Chloride Carbon Dioxide BUN Creatinine Glucose POC Glucose 140 H 120 H 137 H Magnesium AST ALT Alkaline Phosphatase Total Creatine Kinase NT-Pro-B Natriuret Pep Albumin Urine WBC (Auto) Crossmatch 11/19/18 11/19/18 11/19/18 00:20 05:35 06:11 WBC RBC Hgb Hct MCH MCHC RDW Plt Count Lymph % (Auto) [place] % (Auto) Eos % (Auto) Lymph # [place] # Eos # Seg Neutrophils % Seg Neutrophils # PT INR POC ABG pH POC ABG pCO2 POC ABG pO2 VBG pH Sodium Potassium Chloride Carbon Dioxide BUN Creatinine Glucose POC Glucose 111 H 126 H Magnesium AST ALT Alkaline Phosphatase Total Creatine Kinase 53 L NT-Pro-B Natriuret Pep Albumin Urine WBC (Auto) Crossmatch 11/19/18 11/19/18 11/20/18 11:37 23:43 06:52 WBC RBC Hgb Hct MCH MCHC RDW Plt Count Lymph % (Auto) [place] % (Auto) Eos % (Auto) Lymph # [place] # Eos # Seg Neutrophils % Seg Neutrophils # PT INR POC ABG pH POC ABG pCO2 POC ABG pO2 VBG pH Sodium Potassium Chloride Carbon Dioxide BUN Creatinine Glucose POC Glucose 139 H 145 H 125 H Magnesium AST ALT Alkaline Phosphatase Total Creatine Kinase NT-Pro-B Natriuret Pep Albumin Urine WBC (Auto) Crossmatch 11/20/18 11/20/18 11/20/18 09:55 09:55 11:49 WBC RBC 3.04 L Hgb 8.4 L Hct 26.1 L MCH MCHC RDW 17.5 H Plt Count Lymph % (Auto) [place] % (Auto) Eos % (Auto) Lymph # [place] # Eos # Seg Neutrophils % Seg Neutrophils # PT INR POC ABG pH POC ABG pCO2 POC ABG pO2 VBG pH Sodium 149 H Potassium Chloride 114.5 H Carbon Dioxide 21 L BUN 35 H Creatinine Glucose 127 H POC Glucose 150 H Magnesium AST ALT Alkaline Phosphatase Total Creatine Kinase NT-Pro-B Natriuret Pep Albumin Urine WBC (Auto) Crossmatch 11/20/18 11/20/18 11/21/18 18:02 23:49 06:14 WBC RBC Hgb Hct MCH MCHC RDW Plt Count Lymph % (Auto) [place] % (Auto) Eos % (Auto) Lymph # [place] # Eos # Seg Neutrophils % Seg Neutrophils # PT INR POC ABG pH POC ABG pCO2 POC ABG pO2 VBG pH Sodium Potassium Chloride Carbon Dioxide BUN Creatinine Glucose POC Glucose 131 H 137 H 133 H Magnesium AST ALT Alkaline Phosphatase Total Creatine Kinase NT-Pro-B Natriuret Pep Albumin Urine WBC (Auto) Crossmatch 11/21/18 11/21/18 11/21/18 10:00 12:09 18:04 WBC RBC Hgb Hct MCH MCHC RDW Plt Count Lymph % (Auto) [place] % (Auto) Eos % (Auto) Lymph # [place] # Eos # Seg Neutrophils % Seg Neutrophils # PT INR POC ABG pH POC ABG pCO2 POC ABG pO2 VBG pH Sodium Potassium Chloride 110.6 H Carbon Dioxide BUN 31 H Creatinine Glucose 119 H POC Glucose 116 H 126 H Magnesium AST ALT Alkaline Phosphatase Total Creatine Kinase NT-Pro-B Natriuret Pep Albumin Urine WBC (Auto) Crossmatch 11/22/18 11/22/18 11/22/18 00:14 05:47 06:23 WBC RBC Hgb Hct MCH MCHC RDW Plt Count Lymph % (Auto) [place] % (Auto) Eos % (Auto) Lymph # [place] # Eos # Seg Neutrophils % Seg Neutrophils # PT INR POC ABG pH POC ABG pCO2 POC ABG pO2 VBG pH Sodium Potassium Chloride 107.6 H Carbon Dioxide BUN 32 H Creatinine 0.7 L Glucose 116 H POC Glucose 122 H 119 H Magnesium AST ALT Alkaline Phosphatase Total Creatine Kinase NT-Pro-B Natriuret Pep Albumin Urine WBC (Auto) Crossmatch 11/22/18 11/22/18 11/22/18 08:40 12:19 17:39 WBC RBC Hgb Hct MCH MCHC RDW Plt Count Lymph % (Auto) [place] % (Auto) Eos % (Auto) Lymph # [place] # Eos # Seg Neutrophils % Seg Neutrophils # PT INR POC ABG pH POC ABG pCO2 POC ABG pO2 VBG pH Sodium Potassium Chloride Carbon Dioxide BUN Creatinine Glucose POC Glucose 150 H 111 H 108 H Magnesium AST ALT Alkaline Phosphatase Total Creatine Kinase NT-Pro-B Natriuret Pep Albumin Urine WBC (Auto) Crossmatch 11/23/18 11/23/18 11/23/18 00:36 05:37 05:56 WBC RBC Hgb Hct MCH MCHC RDW Plt Count Lymph % (Auto) [place] % (Auto) Eos % (Auto) Lymph # [place] # Eos # Seg Neutrophils % Seg Neutrophils # PT INR POC ABG pH POC ABG pCO2 POC ABG pO2 VBG pH Sodium 136 L Potassium Chloride Carbon Dioxide BUN 30 H Creatinine 0.7 L Glucose 103 H POC Glucose 125 H 122 H Magnesium 2.50 H AST ALT Alkaline Phosphatase Total Creatine Kinase NT-Pro-B Natriuret Pep Albumin Urine WBC (Auto) Crossmatch 11/23/18 11/23/18 11/23/18 11:56 17:39 23:40 WBC RBC Hgb Hct MCH MCHC RDW Plt Count Lymph % (Auto) [place] % (Auto) Eos % (Auto) Lymph # [place] # Eos # Seg Neutrophils % Seg Neutrophils # PT INR POC ABG pH POC ABG pCO2 POC ABG pO2 VBG pH Sodium Potassium Chloride Carbon Dioxide BUN Creatinine Glucose POC Glucose 121 H 113 H 117 H Magnesium AST ALT Alkaline Phosphatase Total Creatine Kinase NT-Pro-B Natriuret Pep Albumin Urine WBC (Auto) Crossmatch 11/24/18 11/24/18 11/24/18 05:13 12:00 18:13 WBC RBC Hgb Hct MCH MCHC RDW Plt Count Lymph % (Auto) [place] % (Auto) Eos % (Auto) Lymph # [place] # Eos # Seg Neutrophils % Seg Neutrophils # PT INR POC ABG pH POC ABG pCO2 POC ABG pO2 VBG pH Sodium Potassium Chloride Carbon Dioxide BUN Creatinine Glucose POC Glucose 143 H 123 H 124 H Magnesium AST ALT Alkaline Phosphatase Total Creatine Kinase NT-Pro-B Natriuret Pep Albumin Urine WBC (Auto) Crossmatch 11/24/18 11/25/18 11/25/18 23:34 05:25 05:25 WBC RBC 2.48 L Hgb 6.8 L Hct 21.2 L MCH MCHC RDW 17.7 H Plt Count Lymph % (Auto) [place] % (Auto) Eos % (Auto) Lymph # [place] # Eos # Seg Neutrophils % Seg Neutrophils # PT INR POC ABG pH POC ABG pCO2 POC ABG pO2 VBG pH Sodium Potassium Chloride 108.8 H Carbon Dioxide BUN 30 H Creatinine 0.7 L Glucose 112 H POC Glucose 115 H Magnesium AST ALT Alkaline Phosphatase Total Creatine Kinase NT-Pro-B Natriuret Pep Albumin Urine WBC (Auto) Crossmatch 11/25/18 11/25/18 11/25/18 06:46 11:15 11:28 WBC RBC Hgb 7.4 L Hct 23.0 L MCH MCHC RDW Plt Count Lymph % (Auto) [place] % (Auto) Eos % (Auto) Lymph # [place] # Eos # Seg Neutrophils % Seg Neutrophils # PT INR POC ABG pH POC ABG pCO2 POC ABG pO2 VBG pH Sodium Potassium Chloride Carbon Dioxide BUN Creatinine Glucose POC Glucose 133 H 127 H Magnesium AST ALT Alkaline Phosphatase Total Creatine Kinase NT-Pro-B Natriuret Pep Albumin Urine WBC (Auto) Crossmatch 11/25/18 11/25/18 11/25/18 15:28 17:32 23:45 WBC RBC Hgb Hct MCH MCHC RDW Plt Count Lymph % (Auto) [place] % (Auto) Eos % (Auto) Lymph # [place] # Eos # Seg Neutrophils % Seg Neutrophils # PT INR POC ABG pH POC ABG pCO2 POC ABG pO2 VBG pH Sodium Potassium Chloride Carbon Dioxide BUN Creatinine Glucose POC Glucose 115 H 130 H Magnesium AST ALT Alkaline Phosphatase Total Creatine Kinase NT-Pro-B Natriuret Pep Albumin Urine WBC (Auto) Crossmatch See Detail 11/26/18 11/26/18 11/26/18 06:13 06:20 06:20 WBC RBC 2.76 L Hgb 7.7 L Hct 23.4 L MCH MCHC RDW 17.5 H Plt Count Lymph % (Auto) [place] % (Auto) Eos % (Auto) Lymph # [place] # Eos # Seg Neutrophils % Seg Neutrophils # PT INR POC ABG pH POC ABG pCO2 POC ABG pO2 VBG pH Sodium Potassium Chloride 109.9 H Carbon Dioxide BUN 30 H Creatinine 0.6 L Glucose 121 H POC Glucose 129 H Magnesium AST ALT Alkaline Phosphatase Total Creatine Kinase NT-Pro-B Natriuret Pep Albumin Urine WBC (Auto) Crossmatch 11/26/18 11/26/18 11/27/18 12:06 16:35 06:04 WBC RBC Hgb Hct MCH MCHC RDW Plt Count Lymph % (Auto) [place] % (Auto) Eos % (Auto) Lymph # [place] # Eos # Seg Neutrophils % Seg Neutrophils # PT INR POC ABG pH POC ABG pCO2 POC ABG pO2 VBG pH Sodium Potassium Chloride Carbon Dioxide BUN Creatinine Glucose POC Glucose 139 H 107 H 126 H Magnesium AST ALT Alkaline Phosphatase Total Creatine Kinase NT-Pro-B Natriuret Pep Albumin Urine WBC (Auto) Crossmatch 11/27/18 11/27/18 11/28/18 13:14 17:47 07:03 WBC RBC Hgb Hct MCH MCHC RDW Plt Count Lymph % (Auto) [place] % (Auto) Eos % (Auto) Lymph # [place] # Eos # Seg Neutrophils % Seg Neutrophils # PT INR POC ABG pH POC ABG pCO2 POC ABG pO2 VBG pH Sodium Potassium Chloride Carbon Dioxide BUN Creatinine Glucose POC Glucose 130 H 115 H 118 H Magnesium AST ALT Alkaline Phosphatase Total Creatine Kinase NT-Pro-B Natriuret Pep Albumin Urine WBC (Auto) Crossmatch 11/28/18 11/29/18 11/29/18 11:38 00:35 04:56 WBC RBC Hgb Hct MCH MCHC RDW Plt Count Lymph % (Auto) [place] % (Auto) Eos % (Auto) Lymph # [place] # Eos # Seg Neutrophils % Seg Neutrophils # PT INR POC ABG pH POC ABG pCO2 POC ABG pO2 VBG pH Sodium Potassium Chloride Carbon Dioxide BUN Creatinine Glucose POC Glucose 126 H 107 H Magnesium AST ALT Alkaline Phosphatase Total Creatine Kinase 50 L NT-Pro-B Natriuret Pep Albumin Urine WBC (Auto) Crossmatch 11/29/18 11/29/18 11/29/18 05:49 11:46 18:17 WBC RBC Hgb Hct MCH MCHC RDW Plt Count Lymph % (Auto) [place] % (Auto) Eos % (Auto) Lymph # [place] # Eos # Seg Neutrophils % Seg Neutrophils # PT INR POC ABG pH POC ABG pCO2 POC ABG pO2 VBG pH Sodium Potassium Chloride Carbon Dioxide BUN Creatinine Glucose POC Glucose 128 H 140 H 115 H Magnesium AST ALT Alkaline Phosphatase Total Creatine Kinase NT-Pro-B Natriuret Pep Albumin Urine WBC (Auto) Crossmatch 11/30/18 11/30/18 11/30/18 00:00 03:30 03:30 WBC RBC 2.97 L Hgb 8.1 L Hct 25.5 L MCH 27 L MCHC RDW 17.7 H Plt Count Lymph % (Auto) 9.2 L [place] % (Auto) 10.0 H Eos % (Auto) 4.6 H Lymph # 1.0 L [place] # 1.1 H Eos # 0.5 H Seg Neutrophils % 75.6 H Seg Neutrophils # 8.4 H PT INR POC ABG pH POC ABG pCO2 POC ABG pO2 VBG pH Sodium Potassium Chloride Carbon Dioxide BUN 31 H Creatinine 0.7 L Glucose POC Glucose 120 H Magnesium AST ALT Alkaline Phosphatase Total Creatine Kinase NT-Pro-B Natriuret Pep Albumin Urine WBC (Auto) Crossmatch 11/30/18 06:54 WBC RBC Hgb Hct MCH MCHC RDW Plt Count Lymph % (Auto) [place] % (Auto) Eos % (Auto) Lymph # [place] # Eos # Seg Neutrophils % Seg Neutrophils # PT INR POC ABG pH POC ABG pCO2 POC ABG pO2 VBG pH Sodium Potassium Chloride Carbon Dioxide BUN Creatinine Glucose POC Glucose 120 H Magnesium AST ALT Alkaline Phosphatase Total Creatine Kinase NT-Pro-B Natriuret Pep Albumin Urine WBC (Auto) Crossmatch Allied health notes reviewed: nursing
[2018-11-30] MEDS: NACL 0.9% IV SCH (10:25)
[2018-11-30] MEDS: DAPTOMYCIN IV SCH (10:25)
[2018-11-30] MEDS: APRESOLINE PO SCH ×2 (10:26→21:13)
[2018-11-30] MEDS: LOVENOX SUB-Q SCH (10:26)
[2018-11-30] MEDS: Centrum Liq FEEDTUBE SCH (10:26)
[2018-11-30] MEDS: VITAMIN C FEEDTUBE SCH ×2 (10:26→21:13)
[2018-11-30] MEDS: KEPPRA FEEDTUBE SCH ×2 (10:26→21:13)
[2018-11-30] MEDS: COREG PO SCH ×2 (10:26→21:13)
[2018-11-30] MEDS: SODIUM CHLORIDE FLUSH SYRINGE 10 ML IV SCH ×2 (10:27→21:14)
[2018-11-30] MEDS: ZINC SULFATE PO SCH (10:27)
--- NOTE | 2018-11-30 10:27 | Progress Note ---
Assessment and Plan /Sepsis with MRSA bacteremia, UTI, Infected decub ulcer POA, osteomyelitis poa - Patient had being multiple admission in the past including this one for similar situation - Previously and during this admission discussed multiple times with family for hospice placement but they refused - Patient was previously discharged with vancomycin for MRSA bacteremia - He readmitted this time while he was on vancomycin and blood cultures was still growing MRSA - Changed antibiotic to daptomycin per ID - at discharge will need daptomycin 400 mg IV q day for 6 weeks until 12/16/2018, Order placed with case management - per ID, Patient colonized with multiple MDROs, 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 Continue contact isolation while inpatient /Sacral pressure ulcer -infected. POA WOUND CARE CONSULTed. CONTINUE ABX. 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 / BPH status post TURP and obstructive uropathy Continue Chaudhary catherter placed by urology during this admission /Chronic Dementia supportive care /DVT prophylaxis Prophylactic lovenox POOR PROGNOSIS Disposition; Arranged family meeting on 11/14 with employment evaluator/case manager patient's daughters, granddaughter and ex- along with Dr. Wynne. Family still wants to continue the antibiotic treatment, but they mention if antibiotic treatment fails this time and patient continued to spike fever or remains bacteremic with daptomycin then they would possibly consider hospice. Family also considering for DO NOT RESUSCITATE and does not want any life support for the patient, but they did not signed the DNR form yet. Patient [facility] be [facility] back to the [facility] as soon as isolation room is available. Brief history: 67-year-old male with history of HTN, CVA, Obstructive Uropathy, Diastolic CHF, Contracture, Sacral Decubitus Ulcers, [place], DM, OA, Seizure Disorder, COPD, Dementia, BPH presents to ED for evaluation. Pt is stuporous and unable to provide history. Pt history taken from ED Staff, EMS, and SNF Staff. As per staff, the patient was found to have respiratory distress upon evaluation this morning. Pt found to have pulse oximetry in the 80's. EMS notified and patient subsequently transported to [facility] for further care and evaluation. Pt seen and evaluated in ED and found to have UTI, Sepsis, Encephalopathy as well as Acute Hypoxemic Respiratory Failure. Pt initiated on NIPPV in ED with improvement in symptoms. Pt admitted to IM and initiated on Sepsis protocol. Prior admission on 10/01/18 reviewed. Extensive discussion with family about patients poor prognosis surgery consulted for possible debridment ID following, Pulmonary status improved Continue isolation care, Chaudhary placed by Urology please do not remove Discharge pending on isolation room availability at the [facility] Hospitalist Physical The patient appeared in no distress. Vital signs as documented. Head exam is unremarkable. No scleral icterus . Neck is without jugular venous distension, thyromegaly, or carotid bruits. Lungs are clear to auscultation. Cardiac exam reveals regular rate and Rhythm. First and second heart sounds normal. No murmurs, rubs or gallops. Abdominal exam reveals normal bowel sounds, no masses, no organomegaly and no aortic enlargement. Extremities contracted extremities. NURSE TRANSITIONAL: Does not follow command, contracted extremities Skin; multiple decubitus ulcers, including the sacrum and the heel. Subjective Date of service: 11/30/18 Principal diagnosis: Severe Sepsis; Ac. Hypoxemic Resp failure; Anemia; Seizure; UTI; BPH Interval history: Patient seen and examined. Medical records and medication list reviewed. No acute event overnight noted by the RN. Discharge pending on placement Objective - Constitutional Vitals: Vital Signs - 12hr 11/29/18 11/29/18 11/30/18 22:36 22:37 03:10 Temperature 99.2 F Pulse Rate 89 89 80 Pulse Rate [ Anterior Bilateral Throughout] Respiratory 24 Rate Respiratory Rate [Anterior Bilateral Throughout] Blood Pressure 142/72 142/72 115/60 O2 Sat by Pulse 98 Oximetry 11/30/18 11/30/18 11/30/18 07:46 08:00 08:10 Temperature 98.7 F Pulse Rate 83 Pulse Rate [ 83 84 Anterior Bilateral Throughout] Respiratory 18 Rate Respiratory 18 18 Rate [Anterior Bilateral Throughout] Blood Pressure 140/68 O2 Sat by Pulse 98 Oximetry 11/30/18 11/30/18 09:06 10:26 Temperature Pulse Rate 83 Pulse Rate [ Anterior Bilateral Throughout] Respiratory Rate Respiratory Rate [Anterior Bilateral Throughout] Blood Pressure 140/68 O2 Sat by Pulse 98 Oximetry - Labs CBC & Chem 7: 11/30/18 03:30 11/30/18 03:30 Labs: Abnormal lab results 11/29/18 11/29/18 11/30/18 Range/Units 11:46 18:17 00:00 RBC (3.65-5.03) M/mm3 Hgb (11.8-15.2) gm/dl Hct (35.5-45.6) % MCH (28-32) pg RDW (13.2-15.2) % Lymph % (Auto) (13.4-35.0) % [place] % (Auto) (0.0-7.3) % Eos % (Auto) (0.0-4.3) % Lymph # (1.2-5.4) K/mm3 [place] # (0.0-0.8) K/mm3 Eos # (0.0-0.4) K/mm3 Seg Neutrophils % (40.0-70.0) % Seg Neutrophils # (1.8-7.7) K/mm3 BUN (9-20) mg/dL Creatinine (0.8-1.5) mg/dL POC Glucose 140 H 115 H 120 H (70-105) 11/30/18 11/30/18 11/30/18 Range/Units 03:30 03:30 06:54 RBC 2.97 L (3.65-5.03) M/mm3 Hgb 8.1 L (11.8-15.2) gm/dl Hct 25.5 L (35.5-45.6) % MCH 27 L (28-32) pg RDW 17.7 H (13.2-15.2) % Lymph % (Auto) 9.2 L (13.4-35.0) % [place] % (Auto) 10.0 H (0.0-7.3) % Eos % (Auto) 4.6 H (0.0-4.3) % Lymph # 1.0 L (1.2-5.4) K/mm3 [place] # 1.1 H (0.0-0.8) K/mm3 Eos # 0.5 H (0.0-0.4) K/mm3 Seg Neutrophils % 75.6 H (40.0-70.0) % Seg Neutrophils # 8.4 H (1.8-7.7) K/mm3 BUN 31 H (9-20) mg/dL Creatinine 0.7 L (0.8-1.5) mg/dL POC Glucose 120 H (70-105)
[2018-11-30] MEDS: MORPHINE IV PRN (21:15)
[2018-12-01] MEDS: DUONEB *Not for PRN Use IH SCH ×2 (08:14→20:14)
[2018-12-01] MEDS: Centrum Liq FEEDTUBE SCH (09:46)
[2018-12-01] MEDS: KEPPRA FEEDTUBE SCH ×2 (09:46→23:11)
[2018-12-01] MEDS: ZINC SULFATE PO SCH (09:46)
[2018-12-01] MEDS: VITAMIN C FEEDTUBE SCH ×2 (09:47→23:11)
[2018-12-01] MEDS: SODIUM CHLORIDE FLUSH SYRINGE 10 ML IV SCH ×2 (09:48→23:12)
[2018-12-01] MEDS: COREG PO SCH ×2 (09:53→23:11)
[2018-12-01] MEDS: LOVENOX SUB-Q SCH (09:54)
[2018-12-01] MEDS: APRESOLINE PO SCH ×2 (09:54→23:11)
--- NOTE | 2018-12-01 11:27 | Progress Note ---
Assessment and Plan /Sepsis with MRSA bacteremia, UTI, Infected decub ulcer POA, osteomyelitis poa - Patient had being multiple admission in the past including this one for similar situation - Previously and during this admission discussed multiple times with family for hospice placement but they refused - Patient was previously discharged with vancomycin for MRSA bacteremia - He readmitted this time while he was on vancomycin and blood cultures was still growing MRSA - Changed antibiotic to daptomycin per ID - at discharge will need daptomycin 400 mg IV q day for 6 weeks until 12/16/2018, Order placed with case management - per ID, Patient colonized with multiple MDROs, 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 Continue contact isolation while inpatient /Sacral pressure ulcer -infected. POA WOUND CARE CONSULTed. CONTINUE ABX. 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 / BPH status post TURP and obstructive uropathy Continue Chaudhary catherter placed by urology during this admission /Chronic Dementia supportive care /DVT prophylaxis Prophylactic lovenox POOR PROGNOSIS Disposition; Arranged family meeting on 11/14 with mattress spring encaser patient's daughters, granddaughter and ex- along with Dr. Wynne. Family still wants to continue the antibiotic treatment, but they mention if antibiotic treatment fails this time and patient continued to spike fever or remains bacteremic with daptomycin then they would possibly consider hospice. Family also considering for DO NOT RESUSCITATE and does not want any life support for the patient, but they did not signed the DNR form yet. Patient will be discharged back to the [facility] living[facility] as soon as isolation room is available. Brief history: 67-year-old male with history of HTN, CVA, Obstructive Uropathy, Diastolic CHF, Contracture, Sacral Decubitus Ulcers, [place], DM, OA, Seizure Disorder, COPD, Dementia, BPH presents to ED for evaluation. Pt is stuporous and unable to provide history. Pt history taken from ED Staff, EMS, and SNF Staff. As per staff, the patient was found to have respiratory distress upon evaluation this morning. Pt found to have pulse oximetry in the 80's. EMS notified and patient subsequently transported to [facility] for further care and evaluation. Pt seen and evaluated in ED and found to have UTI, Sepsis, Encephalopathy as well as Acute Hypoxemic Respiratory Failure. Pt initiated on NIPPV in ED with improvement in symptoms. Pt admitted to IM and initiated on Sepsis protocol. Prior admission on 10/01/18 reviewed. Extensive discussion with family about patients poor prognosis surgery consulted for possible debridment ID following, Pulmonary status improved Continue isolation care, Chaudhary placed by Urology please do not remove Discharge pending on isolation room availability at the senior living Hospitalist Physical The patient appeared in no distress. Vital signs as documented. Head exam is unremarkable. No scleral icterus . Neck is without jugular venous distension, thyromegaly, or carotid bruits. Lungs are clear to auscultation. Cardiac exam reveals regular rate and Rhythm. First and second heart sounds normal. No murmurs, rubs or gallops. Abdominal exam reveals normal bowel sounds, no masses, no organomegaly and no aortic enlargement. Extremities contracted extremities. INSTRUCTOR NURSE: Does not follow command, contracted extremities Skin; multiple decubitus ulcers, including the sacrum and the heel. Subjective Date of service: 12/01/18 Principal diagnosis: Severe Sepsis; Ac. Hypoxemic Resp failure; Anemia; Seizure; UTI; BPH Interval history: Patient seen and examined. Medical records and medication list reviewed. No acute event overnight noted by the RN. Discharge pending on placement Objective - Constitutional Vitals: Vital Signs - 12hr 12/01/18 12/01/18 12/01/18 03:00 07:31 08:14 Temperature 98.5 F Pulse Rate 80 91 H Pulse Rate [ 88 Anterior Bilateral Throughout] Respiratory 18 18 Rate Respiratory 18 Rate [Anterior Bilateral Throughout] Blood Pressure 114/66 Blood Pressure 133/67 [Left] O2 Sat by Pulse 95 99 Oximetry 12/01/18 12/01/18 12/01/18 08:25 08:37 09:51 Temperature Pulse Rate 85 Pulse Rate [ 89 Anterior Bilateral Throughout] Respiratory 18 18 Rate Respiratory 18 Rate [Anterior Bilateral Throughout] Blood Pressure 115/63 Blood Pressure [Left] O2 Sat by Pulse 97 99 Oximetry 12/01/18 12/01/18 09:53 09:54 Temperature Pulse Rate 85 85 Pulse Rate [ Anterior Bilateral Throughout] Respiratory Rate Respiratory Rate [Anterior Bilateral Throughout] Blood Pressure 115/63 115/63 Blood Pressure [Left] O2 Sat by Pulse Oximetry - Labs CBC & Chem 7: 11/30/18 03:30 11/30/18 03:30 Labs: Abnormal lab results 11/30/18 11/30/18 12/01/18 Range/Units 11:45 16:59 00:20 POC Glucose 123 H 111 H 113 H (70-105) 12/01/18 Range/Units 05:58 POC Glucose 127 H (70-105)
[2018-12-01] MEDS: DAPTOMYCIN IV SCH (11:45)
[2018-12-01] MEDS: NACL 0.9% IV SCH (11:45)
--- NOTE | 2018-12-01 13:34 | Progress Note ---
Assessment and Plan . Patient weak and contracted. Bed ridden. Patient is sleeping and on 2L O2 via nasal canula. No acute respiratory distress. O2 sat 99%. Patient is afebrile. No change in general condition. - Patient Problems (1) Respiratory failure Current Visit: Yes Status: Acute Qualifiers: Chronicity: acute Respiratory failure complication: hypoxia Qualified Code(s): J96.01 - Acute respiratory failure with hypoxia Plan to address problem: Continue O2 supplementation 2 L via nasal canula. Albuterol and Atrovent treatment q6h. Patient is on Diptomycine as per infectious diseases. Continue SQ Levonox. Recommend GI prophylexis. (2) Seizure Current Visit: Yes Status: Acute Plan to address problem: Management as per neurologist. (3) Sepsis Current Visit: Yes Status: Acute Plan to address problem: Patient is on Daptomycine as per infectious diseases. (4) UTI (urinary tract infection) Current Visit: Yes Status: Acute Qualifiers: Encounter type: initial encounter Plan to address problem: Patient is on Daptomycine as per infectious diseases. (5) ARF (acute renal failure) with tubular necrosis Current Visit: No Status: Acute Plan to address problem: Management as per Nephrology. Subjective Date of service: 12/01/18 Principal diagnosis: Severe Sepsis; Ac. Hypoxemic Resp failure; Anemia; Seizure; UTI; BPH Interval history: Patient weak and contracted. Bed ridden. Patient is sleeping and on 2L O2 via nasal canula. No acute respiratory distress. O2 sat 99%. Patient is afebrile. No change in general condition. Objective Vital Signs - 12hr 12/01/18 12/01/18 12/01/18 03:00 07:31 08:14 Temperature 98.5 F Pulse Rate 80 91 H Pulse Rate [ 88 Anterior Bilateral Throughout] Respiratory 18 18 Rate Respiratory 18 Rate [Anterior Bilateral Throughout] Blood Pressure 114/66 Blood Pressure 133/67 [Left] O2 Sat by Pulse 95 99 Oximetry 12/01/18 12/01/18 12/01/18 08:25 08:37 09:51 Temperature Pulse Rate 85 Pulse Rate [ 89 Anterior Bilateral Throughout] Respiratory 18 18 Rate Respiratory 18 Rate [Anterior Bilateral Throughout] Blood Pressure 115/63 Blood Pressure [Left] O2 Sat by Pulse 97 99 Oximetry 12/01/18 12/01/18 09:53 09:54 Temperature Pulse Rate 85 85 Pulse Rate [ Anterior Bilateral Throughout] Respiratory Rate Respiratory Rate [Anterior Bilateral Throughout] Blood Pressure 115/63 115/63 Blood Pressure [Left] O2 Sat by Pulse Oximetry Constitutional: no acute distress, asleep Eyes: non-icteric ENT: oropharynx moist Neck: no lymphadenopathy, no JVD, other (mild stiffness / contracture) Effort: mildly labored Ascultation: Bilateral: diminished breath sounds, rhonchi Percussion: Bilateral: not dull Cardiovascular: regular rate and rhythm Gastrointestinal: normoactive bowel sounds, soft, non-tender, non-distended Integumentary: rash Extremities: no cyanosis, no edema, pulses normal, other (Patient has pressure ulcer at multiple areas, including sacral area.) Neurologic: non-focal exam, pupils equal and round, CN II-XII normal, other (+ contractures) Psychiatric: mood appropriate, affect normal CBC and BMP: 11/30/18 03:30 11/30/18 03:30 ABG, PT/INR, D-dimer: ABG POC ABG pH 7.494 (7.35-7.45) H 11/01/18 15:27 POC ABG pCO2 34.5 (35-45) L 11/01/18 15:27 POC ABG pO2 139 (80-105) H 11/01/18 15:27 POC ABG HCO3 26.5 (22-26 mml/L) 11/01/18 15:27 POC ABG Total CO2 28 (23-27mmol/L) 11/01/18 15:27 POC ABG O2 Sat 99 11/01/18 15:27 PT/INR, D-dimer PT 16.3 Sec. (12.2-14.9) H 11/01/18 14:50 INR 1.35 (0.87-1.13) H 11/01/18 14:50 Abnormal lab findings: Abnormal Labs 11/01/18 11/01/18 11/01/18 14:50 14:50 14:50 WBC 15.3 H RBC 2.76 L Hgb 7.9 L Hct 23.5 L MCH MCHC RDW 18.3 H Plt Count 567 H Lymph % (Auto) 6.5 L Rush % (Auto) 8.5 H Eos % (Auto) Lymph # 1.0 L Rush # 1.3 H Eos # Seg Neutrophils % 83.4 H Seg Neutrophils # 12.7 H PT 16.3 H INR 1.35 H POC ABG pH POC ABG pCO2 POC ABG pO2 VBG pH Sodium Potassium Chloride Carbon Dioxide BUN 49 H Creatinine Glucose 132 H POC Glucose Magnesium AST 90 H ALT 77 H Alkaline Phosphatase 350 H Total Creatine Kinase NT-Pro-B Natriuret Pep Albumin 1.6 L Urine WBC (Auto) Crossmatch 11/01/18 11/01/18 11/01/18 14:50 14:50 15:27 WBC RBC Hgb Hct MCH MCHC RDW Plt Count Lymph % (Auto) Rush % (Auto) Eos % (Auto) Lymph # Rush # Eos # Seg Neutrophils % Seg Neutrophils # PT INR POC ABG pH 7.494 H POC ABG pCO2 34.5 L POC ABG pO2 139 H VBG pH 7.499 H Sodium Potassium Chloride Carbon Dioxide BUN Creatinine Glucose POC Glucose Magnesium AST ALT Alkaline Phosphatase Total Creatine Kinase NT-Pro-B Natriuret Pep 6776 H Albumin Urine WBC (Auto) Crossmatch 11/01/18 11/03/18 11/03/18 15:57 03:41 03:41 WBC 12.8 H RBC 2.55 L Hgb 6.9 L Hct 22.2 L MCH 27 L MCHC 31 L RDW 17.9 H Plt Count 519 H Lymph % (Auto) Rush % (Auto) Eos % (Auto) Lymph # Rush # Eos # Seg Neutrophils % Seg Neutrophils # PT INR POC ABG pH POC ABG pCO2 POC ABG pO2 VBG pH Sodium 147 H Potassium Chloride 110.3 H Carbon Dioxide BUN 55 H Creatinine Glucose POC Glucose Magnesium AST ALT Alkaline Phosphatase Total Creatine Kinase NT-Pro-B Natriuret Pep Albumin Urine WBC (Auto) > 182.0 H Crossmatch 11/03/18 11/04/18 11/04/18 12:51 05:12 05:12 WBC 11.5 H RBC 2.94 L Hgb 8.3 L Hct 25.3 L MCH MCHC RDW 17.3 H Plt Count 514 H Lymph % (Auto) Rush % (Auto) Eos % (Auto) Lymph # Rush # Eos # Seg Neutrophils % Seg Neutrophils # PT INR POC ABG pH POC ABG pCO2 POC ABG pO2 VBG pH Sodium 147 H Potassium Chloride 112.4 H Carbon Dioxide BUN 52 H Creatinine Glucose POC Glucose Magnesium AST ALT Alkaline Phosphatase Total Creatine Kinase NT-Pro-B Natriuret Pep Albumin Urine WBC (Auto) Crossmatch See Detail 11/05/18 11/05/18 11/06/18 04:50 04:50 05:42 WBC RBC 3.03 L 2.80 L Hgb 8.7 L 7.9 L Hct 26.6 L 24.7 L MCH MCHC RDW 17.1 H 17.0 H Plt Count 502 H 478 H Lymph % (Auto) 10.4 L Rush % (Auto) 8.6 H Eos % (Auto) 4.7 H Lymph # 1.0 L Rush # Eos # 0.5 H Seg Neutrophils % 75.6 H Seg Neutrophils # PT INR POC ABG pH POC ABG pCO2 POC ABG pO2 VBG pH Sodium 149 H Potassium Chloride 114.4 H Carbon Dioxide 21 L BUN 50 H Creatinine Glucose 108 H POC Glucose Magnesium AST ALT Alkaline Phosphatase Total Creatine Kinase NT-Pro-B Natriuret Pep Albumin Urine WBC (Auto) Crossmatch 11/06/18 11/11/18 11/12/18 05:42 18:54 00:22 WBC RBC Hgb Hct MCH MCHC RDW Plt Count Lymph % (Auto) Rush % (Auto) Eos % (Auto) Lymph # Rush # Eos # Seg Neutrophils % Seg Neutrophils # PT INR POC ABG pH POC ABG pCO2 POC ABG pO2 VBG pH Sodium 149 H Potassium Chloride 113.4 H Carbon Dioxide BUN 50 H Creatinine Glucose 121 H POC Glucose 114 H 123 H Magnesium AST ALT Alkaline Phosphatase Total Creatine Kinase NT-Pro-B Natriuret Pep Albumin Urine WBC (Auto) Crossmatch 11/12/18 11/12/18 11/13/18 06:49 11:35 06:34 WBC RBC Hgb Hct MCH MCHC RDW Plt Count Lymph % (Auto) Rush % (Auto) Eos % (Auto) Lymph # Rush # Eos # Seg Neutrophils % Seg Neutrophils # PT INR POC ABG pH POC ABG pCO2 POC ABG pO2 VBG pH Sodium Potassium Chloride Carbon Dioxide BUN Creatinine Glucose POC Glucose 129 H 123 H 128 H Magnesium AST ALT Alkaline Phosphatase Total Creatine Kinase NT-Pro-B Natriuret Pep Albumin Urine WBC (Auto) Crossmatch 11/13/18 11/13/18 11/13/18 09:26 09:26 15:13 WBC RBC 3.08 L Hgb 8.6 L Hct 27.3 L MCH MCHC 31 L RDW 18.3 H Plt Count 504 H Lymph % (Auto) 11.7 L Rush % (Auto) 7.5 H Eos % (Auto) 7.0 H Lymph # Rush # Eos # 0.7 H Seg Neutrophils % 72.9 H Seg Neutrophils # PT INR POC ABG pH POC ABG pCO2 POC ABG pO2 VBG pH Sodium 153 H Potassium 6.3 H* 5.8 H Chloride 122.3 H Carbon Dioxide 21 L BUN 38 H Creatinine Glucose 112 H POC Glucose Magnesium AST ALT Alkaline Phosphatase Total Creatine Kinase NT-Pro-B Natriuret Pep Albumin Urine WBC (Auto) Crossmatch 11/13/18 11/13/18 11/14/18 22:10 23:45 13:17 WBC RBC Hgb Hct MCH MCHC RDW Plt Count Lymph % (Auto) Rush % (Auto) Eos % (Auto) Lymph # Rush # Eos # Seg Neutrophils % Seg Neutrophils # PT INR POC ABG pH POC ABG pCO2 POC ABG pO2 VBG pH Sodium 155 H Potassium 5.3 H Chloride 122.3 H Carbon Dioxide BUN 35 H Creatinine Glucose 113 H POC Glucose 111 H 142 H Magnesium AST ALT Alkaline Phosphatase Total Creatine Kinase NT-Pro-B Natriuret Pep Albumin Urine WBC (Auto) Crossmatch 11/14/18 11/15/18 11/15/18 19:08 00:31 06:45 WBC RBC Hgb Hct MCH MCHC RDW Plt Count Lymph % (Auto) Rush % (Auto) Eos % (Auto) Lymph # Rush # Eos # Seg Neutrophils % Seg Neutrophils # PT INR POC ABG pH POC ABG pCO2 POC ABG pO2 VBG pH Sodium Potassium Chloride Carbon Dioxide BUN Creatinine Glucose POC Glucose 116 H 125 H 131 H Magnesium AST ALT Alkaline Phosphatase Total Creatine Kinase NT-Pro-B Natriuret Pep Albumin Urine WBC (Auto) Crossmatch 11/15/18 11/15/18 11/15/18 07:13 07:13 19:03 WBC 13.2 H RBC 2.81 L Hgb 7.8 L Hct 24.5 L MCH MCHC RDW 18.2 H Plt Count 454 H Lymph % (Auto) 9.0 L Rush % (Auto) 7.5 H Eos % (Auto) Lymph # Rush # 1.0 H Eos # 0.5 H Seg Neutrophils % 78.8 H Seg Neutrophils # 10.4 H PT INR POC ABG pH POC ABG pCO2 POC ABG pO2 VBG pH Sodium 149 H Potassium 5.2 H Chloride 117.2 H Carbon Dioxide BUN 38 H Creatinine Glucose 114 H POC Glucose 141 H Magnesium AST ALT Alkaline Phosphatase Total Creatine Kinase NT-Pro-B Natriuret Pep Albumin Urine WBC (Auto) Crossmatch 11/16/18 11/16/18 11/16/18 01:15 01:15 06:45 WBC RBC Hgb Hct MCH MCHC RDW Plt Count Lymph % (Auto) Rush % (Auto) Eos % (Auto) Lymph # Rush # Eos # Seg Neutrophils % Seg Neutrophils # PT INR POC ABG pH POC ABG pCO2 POC ABG pO2 VBG pH Sodium Potassium 5.3 H Chloride Carbon Dioxide BUN Creatinine Glucose POC Glucose 129 H Magnesium 2.60 H AST ALT Alkaline Phosphatase Total Creatine Kinase NT-Pro-B Natriuret Pep Albumin Urine WBC (Auto) Crossmatch 11/16/18 11/16/18 11/17/18 13:20 18:02 00:16 WBC RBC Hgb Hct MCH MCHC RDW Plt Count Lymph % (Auto) Rush % (Auto) Eos % (Auto) Lymph # Rush # Eos # Seg Neutrophils % Seg Neutrophils # PT INR POC ABG pH POC ABG pCO2 POC ABG pO2 VBG pH Sodium Potassium Chloride Carbon Dioxide BUN Creatinine Glucose POC Glucose 130 H 127 H 120 H Magnesium AST ALT Alkaline Phosphatase Total Creatine Kinase NT-Pro-B Natriuret Pep Albumin Urine WBC (Auto) Crossmatch 11/17/18 11/17/18 11/17/18 05:48 08:02 08:02 WBC RBC Hgb 7.5 L Hct 23.5 L MCH MCHC RDW Plt Count Lymph % (Auto) Rush % (Auto) Eos % (Auto) Lymph # Rush # Eos # Seg Neutrophils % Seg Neutrophils # PT INR POC ABG pH POC ABG pCO2 POC ABG pO2 VBG pH Sodium Potassium Chloride 110.1 H Carbon Dioxide 21 L BUN 38 H Creatinine Glucose 121 H POC Glucose 130 H Magnesium AST ALT Alkaline Phosphatase Total Creatine Kinase NT-Pro-B Natriuret Pep Albumin Urine WBC (Auto) Crossmatch 11/17/18 11/17/18 11/18/18 12:17 16:48 06:00 WBC RBC Hgb Hct MCH MCHC RDW Plt Count Lymph % (Auto) Rush % (Auto) Eos % (Auto) Lymph # Rush # Eos # Seg Neutrophils % Seg Neutrophils # PT INR POC ABG pH POC ABG pCO2 POC ABG pO2 VBG pH Sodium Potassium Chloride Carbon Dioxide BUN Creatinine Glucose POC Glucose 140 H 120 H 137 H Magnesium AST ALT Alkaline Phosphatase Total Creatine Kinase NT-Pro-B Natriuret Pep Albumin Urine WBC (Auto) Crossmatch 11/19/18 11/19/18 11/19/18 00:20 05:35 06:11 WBC RBC Hgb Hct MCH MCHC RDW Plt Count Lymph % (Auto) Rush % (Auto) Eos % (Auto) Lymph # Rush # Eos # Seg Neutrophils % Seg Neutrophils # PT INR POC ABG pH POC ABG pCO2 POC ABG pO2 VBG pH Sodium Potassium Chloride Carbon Dioxide BUN Creatinine Glucose POC Glucose 111 H 126 H Magnesium AST ALT Alkaline Phosphatase Total Creatine Kinase 53 L NT-Pro-B Natriuret Pep Albumin Urine WBC (Auto) Crossmatch 11/19/18 11/19/18 11/20/18 11:37 23:43 06:52 WBC RBC Hgb Hct MCH MCHC RDW Plt Count Lymph % (Auto) Rush % (Auto) Eos % (Auto) Lymph # Rush # Eos # Seg Neutrophils % Seg Neutrophils # PT INR POC ABG pH POC ABG pCO2 POC ABG pO2 VBG pH Sodium Potassium Chloride Carbon Dioxide BUN Creatinine Glucose POC Glucose 139 H 145 H 125 H Magnesium AST ALT Alkaline Phosphatase Total Creatine Kinase NT-Pro-B Natriuret Pep Albumin Urine WBC (Auto) Crossmatch 11/20/18 11/20/18 11/20/18 09:55 09:55 11:49 WBC RBC 3.04 L Hgb 8.4 L Hct 26.1 L MCH MCHC RDW 17.5 H Plt Count Lymph % (Auto) Rush % (Auto) Eos % (Auto) Lymph # Rush # Eos # Seg Neutrophils % Seg Neutrophils # PT INR POC ABG pH POC ABG pCO2 POC ABG pO2 VBG pH Sodium 149 H Potassium Chloride 114.5 H Carbon Dioxide 21 L BUN 35 H Creatinine Glucose 127 H POC Glucose 150 H Magnesium AST ALT Alkaline Phosphatase Total Creatine Kinase NT-Pro-B Natriuret Pep Albumin Urine WBC (Auto) Crossmatch 11/20/18 11/20/18 11/21/18 18:02 23:49 06:14 WBC RBC Hgb Hct MCH MCHC RDW Plt Count Lymph % (Auto) Rush % (Auto) Eos % (Auto) Lymph # Rush # Eos # Seg Neutrophils % Seg Neutrophils # PT INR POC ABG pH POC ABG pCO2 POC ABG pO2 VBG pH Sodium Potassium Chloride Carbon Dioxide BUN Creatinine Glucose POC Glucose 131 H 137 H 133 H Magnesium AST ALT Alkaline Phosphatase Total Creatine Kinase NT-Pro-B Natriuret Pep Albumin Urine WBC (Auto) Crossmatch 11/21/18 11/21/18 11/21/18 10:00 12:09 18:04 WBC RBC Hgb Hct MCH MCHC RDW Plt Count Lymph % (Auto) Rush % (Auto) Eos % (Auto) Lymph # Rush # Eos # Seg Neutrophils % Seg Neutrophils # PT INR POC ABG pH POC ABG pCO2 POC ABG pO2 VBG pH Sodium Potassium Chloride 110.6 H Carbon Dioxide BUN 31 H Creatinine Glucose 119 H POC Glucose 116 H 126 H Magnesium AST ALT Alkaline Phosphatase Total Creatine Kinase NT-Pro-B Natriuret Pep Albumin Urine WBC (Auto) Crossmatch 11/22/18 11/22/18 11/22/18 00:14 05:47 06:23 WBC RBC Hgb Hct MCH MCHC RDW Plt Count Lymph % (Auto) Rush % (Auto) Eos % (Auto) Lymph # Rush # Eos # Seg Neutrophils % Seg Neutrophils # PT INR POC ABG pH POC ABG pCO2 POC ABG pO2 VBG pH Sodium Potassium Chloride 107.6 H Carbon Dioxide BUN 32 H Creatinine 0.7 L Glucose 116 H POC Glucose 122 H 119 H Magnesium AST ALT Alkaline Phosphatase Total Creatine Kinase NT-Pro-B Natriuret Pep Albumin Urine WBC (Auto) Crossmatch 11/22/18 11/22/18 11/22/18 08:40 12:19 17:39 WBC RBC Hgb Hct MCH MCHC RDW Plt Count Lymph % (Auto) Rush % (Auto) Eos % (Auto) Lymph # Rush # Eos # Seg Neutrophils % Seg Neutrophils # PT INR POC ABG pH POC ABG pCO2 POC ABG pO2 VBG pH Sodium Potassium Chloride Carbon Dioxide BUN Creatinine Glucose POC Glucose 150 H 111 H 108 H Magnesium AST ALT Alkaline Phosphatase Total Creatine Kinase NT-Pro-B Natriuret Pep Albumin Urine WBC (Auto) Crossmatch 11/23/18 11/23/18 11/23/18 00:36 05:37 05:56 WBC RBC Hgb Hct MCH MCHC RDW Plt Count Lymph % (Auto) Rush % (Auto) Eos % (Auto) Lymph # Rush # Eos # Seg Neutrophils % Seg Neutrophils # PT INR POC ABG pH POC ABG pCO2 POC ABG pO2 VBG pH Sodium 136 L Potassium Chloride Carbon Dioxide BUN 30 H Creatinine 0.7 L Glucose 103 H POC Glucose 125 H 122 H Magnesium 2.50 H AST ALT Alkaline Phosphatase Total Creatine Kinase NT-Pro-B Natriuret Pep Albumin Urine WBC (Auto) Crossmatch 11/23/18 11/23/18 11/23/18 11:56 17:39 23:40 WBC RBC Hgb Hct MCH MCHC RDW Plt Count Lymph % (Auto) Rush % (Auto) Eos % (Auto) Lymph # Rush # Eos # Seg Neutrophils % Seg Neutrophils # PT INR POC ABG pH POC ABG pCO2 POC ABG pO2 VBG pH Sodium Potassium Chloride Carbon Dioxide BUN Creatinine Glucose POC Glucose 121 H 113 H 117 H Magnesium AST ALT Alkaline Phosphatase Total Creatine Kinase NT-Pro-B Natriuret Pep Albumin Urine WBC (Auto) Crossmatch 11/24/18 11/24/18 11/24/18 05:13 12:00 18:13 WBC RBC Hgb Hct MCH MCHC RDW Plt Count Lymph % (Auto) Rush % (Auto) Eos % (Auto) Lymph # Rush # Eos # Seg Neutrophils % Seg Neutrophils # PT INR POC ABG pH POC ABG pCO2 POC ABG pO2 VBG pH Sodium Potassium Chloride Carbon Dioxide BUN Creatinine Glucose POC Glucose 143 H 123 H 124 H Magnesium AST ALT Alkaline Phosphatase Total Creatine Kinase NT-Pro-B Natriuret Pep Albumin Urine WBC (Auto) Crossmatch 11/24/18 11/25/18 11/25/18 23:34 05:25 05:25 WBC RBC 2.48 L Hgb 6.8 L Hct 21.2 L MCH MCHC RDW 17.7 H Plt Count Lymph % (Auto) Rush % (Auto) Eos % (Auto) Lymph # Rush # Eos # Seg Neutrophils % Seg Neutrophils # PT INR POC ABG pH POC ABG pCO2 POC ABG pO2 VBG pH Sodium Potassium Chloride 108.8 H Carbon Dioxide BUN 30 H Creatinine 0.7 L Glucose 112 H POC Glucose 115 H Magnesium AST ALT Alkaline Phosphatase Total Creatine Kinase NT-Pro-B Natriuret Pep Albumin Urine WBC (Auto) Crossmatch 11/25/18 11/25/18 11/25/18 06:46 11:15 11:28 WBC RBC Hgb 7.4 L Hct 23.0 L MCH MCHC RDW Plt Count Lymph % (Auto) Rush % (Auto) Eos % (Auto) Lymph # Rush # Eos # Seg Neutrophils % Seg Neutrophils # PT INR POC ABG pH POC ABG pCO2 POC ABG pO2 VBG pH Sodium Potassium Chloride Carbon Dioxide BUN Creatinine Glucose POC Glucose 133 H 127 H Magnesium AST ALT Alkaline Phosphatase Total Creatine Kinase NT-Pro-B Natriuret Pep Albumin Urine WBC (Auto) Crossmatch 11/25/18 11/25/18 11/25/18 15:28 17:32 23:45 WBC RBC Hgb Hct MCH MCHC RDW Plt Count Lymph % (Auto) Rush % (Auto) Eos % (Auto) Lymph # Rush # Eos # Seg Neutrophils % Seg Neutrophils # PT INR POC ABG pH POC ABG pCO2 POC ABG pO2 VBG pH Sodium Potassium Chloride Carbon Dioxide BUN Creatinine Glucose POC Glucose 115 H 130 H Magnesium AST ALT Alkaline Phosphatase Total Creatine Kinase NT-Pro-B Natriuret Pep Albumin Urine WBC (Auto) Crossmatch See Detail 11/26/18 11/26/18 11/26/18 06:13 06:20 06:20 WBC RBC 2.76 L Hgb 7.7 L Hct 23.4 L MCH MCHC RDW 17.5 H Plt Count Lymph % (Auto) Rush % (Auto) Eos % (Auto) Lymph # Rush # Eos # Seg Neutrophils % Seg Neutrophils # PT INR POC ABG pH POC ABG pCO2 POC ABG pO2 VBG pH Sodium Potassium Chloride 109.9 H Carbon Dioxide BUN 30 H Creatinine 0.6 L Glucose 121 H POC Glucose 129 H Magnesium AST ALT Alkaline Phosphatase Total Creatine Kinase NT-Pro-B Natriuret Pep Albumin Urine WBC (Auto) Crossmatch 11/26/18 11/26/18 11/27/18 12:06 16:35 06:04 WBC RBC Hgb Hct MCH MCHC RDW Plt Count Lymph % (Auto) Rush % (Auto) Eos % (Auto) Lymph # Rush # Eos # Seg Neutrophils % Seg Neutrophils # PT INR POC ABG pH POC ABG pCO2 POC ABG pO2 VBG pH Sodium Potassium Chloride Carbon Dioxide BUN Creatinine Glucose POC Glucose 139 H 107 H 126 H Magnesium AST ALT Alkaline Phosphatase Total Creatine Kinase NT-Pro-B Natriuret Pep Albumin Urine WBC (Auto) Crossmatch 11/27/18 11/27/18 11/28/18 13:14 17:47 07:03 WBC RBC Hgb Hct MCH MCHC RDW Plt Count Lymph % (Auto) Rush % (Auto) Eos % (Auto) Lymph # Rush # Eos # Seg Neutrophils % Seg Neutrophils # PT INR POC ABG pH POC ABG pCO2 POC ABG pO2 VBG pH Sodium Potassium Chloride Carbon Dioxide BUN Creatinine Glucose POC Glucose 130 H 115 H 118 H Magnesium AST ALT Alkaline Phosphatase Total Creatine Kinase NT-Pro-B Natriuret Pep Albumin Urine WBC (Auto) Crossmatch 11/28/18 11/29/18 11/29/18 11:38 00:35 04:56 WBC RBC Hgb Hct MCH MCHC RDW Plt Count Lymph % (Auto) Rush % (Auto) Eos % (Auto) Lymph # Rush # Eos # Seg Neutrophils % Seg Neutrophils # PT INR POC ABG pH POC ABG pCO2 POC ABG pO2 VBG pH Sodium Potassium Chloride Carbon Dioxide BUN Creatinine Glucose POC Glucose 126 H 107 H Magnesium AST ALT Alkaline Phosphatase Total Creatine Kinase 50 L NT-Pro-B Natriuret Pep Albumin Urine WBC (Auto) Crossmatch 11/29/18 11/29/18 11/29/18 05:49 11:46 18:17 WBC RBC Hgb Hct MCH MCHC RDW Plt Count Lymph % (Auto) Rush % (Auto) Eos % (Auto) Lymph # Rush # Eos # Seg Neutrophils % Seg Neutrophils # PT INR POC ABG pH POC ABG pCO2 POC ABG pO2 VBG pH Sodium Potassium Chloride Carbon Dioxide BUN Creatinine Glucose POC Glucose 128 H 140 H 115 H Magnesium AST ALT Alkaline Phosphatase Total Creatine Kinase NT-Pro-B Natriuret Pep Albumin Urine WBC (Auto) Crossmatch 11/30/18 11/30/18 11/30/18 00:00 03:30 03:30 WBC RBC 2.97 L Hgb 8.1 L Hct 25.5 L MCH 27 L MCHC RDW 17.7 H Plt Count Lymph % (Auto) 9.2 L Rush % (Auto) 10.0 H Eos % (Auto) 4.6 H Lymph # 1.0 L Rush # 1.1 H Eos # 0.5 H Seg Neutrophils % 75.6 H Seg Neutrophils # 8.4 H PT INR POC ABG pH POC ABG pCO2 POC ABG pO2 VBG pH Sodium Potassium Chloride Carbon Dioxide BUN 31 H Creatinine 0.7 L Glucose POC Glucose 120 H Magnesium AST ALT Alkaline Phosphatase Total Creatine Kinase NT-Pro-B Natriuret Pep Albumin Urine WBC (Auto) Crossmatch 11/30/18 11/30/18 11/30/18 06:54 11:45 16:59 WBC RBC Hgb Hct MCH MCHC RDW Plt Count Lymph % (Auto) Rush % (Auto) Eos % (Auto) Lymph # Rush # Eos # Seg Neutrophils % Seg Neutrophils # PT INR POC ABG pH POC ABG pCO2 POC ABG pO2 VBG pH Sodium Potassium Chloride Carbon Dioxide BUN Creatinine Glucose POC Glucose 120 H 123 H 111 H Magnesium AST ALT Alkaline Phosphatase Total Creatine Kinase NT-Pro-B Natriuret Pep Albumin Urine WBC (Auto) Crossmatch 12/01/18 12/01/18 12/01/18 00:20 05:58 11:33 WBC RBC Hgb Hct MCH MCHC RDW Plt Count Lymph % (Auto) Rush % (Auto) Eos % (Auto) Lymph # Rush # Eos # Seg Neutrophils % Seg Neutrophils # PT INR POC ABG pH POC ABG pCO2 POC ABG pO2 VBG pH Sodium Potassium Chloride Carbon Dioxide BUN Creatinine Glucose POC Glucose 113 H 127 H 138 H Magnesium AST ALT Alkaline Phosphatase Total Creatine Kinase NT-Pro-B Natriuret Pep Albumin Urine WBC (Auto) Crossmatch Allied health notes reviewed: nursing
[2018-12-02] MEDS: DUONEB *Not for PRN Use IH SCH ×2 (07:39→20:29)
[2018-12-02] MEDS: SODIUM BICARBONATE FEEDTUBE PRN (08:40)
[2018-12-02] MEDS: PANCREAZE DR 10,500 UNIT FEEDTUBE PRN (08:40)
[2018-12-02] MEDS: VITAMIN C FEEDTUBE SCH ×2 (09:47→22:12)
[2018-12-02] MEDS: COREG PO SCH ×2 (09:48→22:13)
[2018-12-02] MEDS: APRESOLINE PO SCH ×2 (09:49→22:12)
[2018-12-02] MEDS: KEPPRA FEEDTUBE SCH ×2 (09:51→22:12)
[2018-12-02] MEDS: ZINC SULFATE PO SCH (09:52)
[2018-12-02] MEDS: SODIUM CHLORIDE FLUSH SYRINGE 10 ML IV SCH ×2 (09:52→22:13)
[2018-12-02] MEDS: LOVENOX SUB-Q SCH (09:52)
[2018-12-02] MEDS: Centrum Liq FEEDTUBE SCH (09:53)
[2018-12-02] MEDS: DAPTOMYCIN IV SCH (10:45)
[2018-12-02] MEDS: NACL 0.9% IV SCH (10:45)
--- NOTE | 2018-12-02 13:26 | Progress Note ---
Assessment and Plan /Sepsis with MRSA bacteremia, UTI, Infected decub ulcer POA, osteomyelitis poa - Patient had being multiple admission in the past including this one for similar situation - Previously and during this admission discussed multiple times with family for hospice placement but they refused - Patient was previously discharged with vancomycin for MRSA bacteremia - He readmitted this time while he was on vancomycin and blood cultures was still growing MRSA - Changed antibiotic to daptomycin per ID - at discharge will need daptomycin 400 mg IV q day for 6 weeks until 12/16/2018, Order placed with case management - per ID, Patient colonized with multiple MDROs, 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 Continue contact isolation while inpatient /Sacral pressure ulcer -infected. POA WOUND CARE CONSULTed. CONTINUE ABX. 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 / BPH status post TURP and obstructive uropathy Continue Chaudhary catherter placed by urology during this admission /Chronic Dementia supportive care /DVT prophylaxis Prophylactic lovenox POOR PROGNOSIS Disposition; Arranged family meeting on 11/14 with therapeutic case manager patient's daughters, granddaughter and ex- along with Dr. Wynne. Family still wants to continue the antibiotic treatment, but they mention if antibiotic treatment fails this time and patient continued to spike fever or remains bacteremic with daptomycin then they would possibly consider hospice. Family also considering for DO NOT RESUSCITATE and does not want any life support for the patient, but they did not signed the DNR form yet. Patient will be discharged back to the [facility] as soon as isolation room is available. Brief history: 67-year-old male with history of HTN, CVA, Obstructive Uropathy, Diastolic CHF, Contracture, Sacral Decubitus Ulcers, NH, DM, OA, Seizure Disorder, COPD, Dementia, BPH presents to ED for evaluation. Pt is stuporous and unable to provide history. Pt history taken from ED Staff, EMS, and SNF Staff. As per staff, the patient was found to have respiratory distress upon evaluation this morning. Pt found to have pulse oximetry in the 80's. EMS notified and patient subsequently transported to [facility] for further care and evaluation. Pt seen and evaluated in ED and found to have UTI, Sepsis, Encephalopathy as well as Acute Hypoxemic Respiratory Failure. Pt initiated on NIPPV in ED with improvement in symptoms. Pt admitted to IM and initiated on Sepsis protocol. Prior admission on 10/01/18 reviewed. Extensive discussion with family about patients poor prognosis surgery consulted for possible debridment ID following, Pulmonary status improved Continue isolation care, Chaudhary placed by Urology please do not remove Discharge pending on isolation room availability at the snf Hospitalist Physical The patient appeared in no distress. Vital signs as documented. Head exam is unremarkable. No scleral icterus . Neck is without jugular venous distension, thyromegaly, or carotid bruits. Lungs are clear to auscultation. Cardiac exam reveals regular rate and Rhythm. First and second heart sounds normal. No murmurs, rubs or gallops. Abdominal exam reveals normal bowel sounds, no masses, no organomegaly and no aortic enlargement. Extremities contracted extremities. 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 Subjective Date of service: 12/02/18 Principal diagnosis: Severe Sepsis; Ac. Hypoxemic Resp failure; Anemia; Seizure; UTI; BPH Interval history: Patient seen and examined. Medical records and medication list reviewed. No acute event overnight noted by the RN. Discharge pending on placement Objective - Constitutional Vitals: Vital Signs - 12hr 12/02/18 12/02/18 12/02/18 02:00 07:19 07:41 Temperature 98.5 F 98.2 F Pulse Rate 81 90 Pulse Rate [ 92 H Anterior Bilateral Throughout] Respiratory 18 20 Rate Respiratory 20 Rate [Anterior Bilateral Throughout] Blood Pressure 142/73 Blood Pressure 133/65 [Left] O2 Sat by Pulse 95 98 Oximetry 12/02/18 12/02/18 12/02/18 07:42 09:48 09:49 Temperature Pulse Rate 85 85 Pulse Rate [ Anterior Bilateral Throughout] Respiratory Rate Respiratory Rate [Anterior Bilateral Throughout] Blood Pressure 144/67 144/67 Blood Pressure [Left] O2 Sat by Pulse 99 Oximetry - Labs CBC & Chem 7: 11/30/18 03:30 11/30/18 03:30 Labs: Abnormal lab results 12/02/18 Range/Units 00:33 POC Glucose 110 H (70-105)
--- NOTE | 2018-12-02 14:50 | Progress Note ---
Assessment and Plan . Patient weak and contracted. Bed ridden. Patient is sleeping and on 2L O2 via nasal canula. No acute respiratory distress. O2 sat 99%. Patient is afebrile. Patient is on I/V daptomycin for MRSA. - Patient Problems (1) Respiratory failure Current Visit: Yes Status: Acute Qualifiers: Chronicity: acute Respiratory failure complication: hypoxia Qualified Code(s): J96.01 - Acute respiratory failure with hypoxia Plan to address problem: Continue O2 supplementation 2 L via nasal canula. Albuterol and Atrovent treatment q6h. Patient is on Diptomycine as per infectious diseases. Continue SQ Levonox. Recommend GI prophylexis. (2) Seizure Current Visit: Yes Status: Acute Plan to address problem: Management as per neurologist. (3) Sepsis Current Visit: Yes Status: Acute Plan to address problem: Patient is on Daptomycine as per infectious diseases. (4) UTI (urinary tract infection) Current Visit: Yes Status: Acute Qualifiers: Encounter type: initial encounter Plan to address problem: Patient is on Daptomycine as per infectious diseases. (5) ARF (acute renal failure) with tubular necrosis Current Visit: No Status: Acute Plan to address problem: Management as per Nephrology. Subjective Date of service: 12/02/18 Principal diagnosis: Severe Sepsis; Ac. Hypoxemic Resp failure; Anemia; Seizure; UTI; BPH Interval history: Patient weak and contracted. Bed ridden. Patient is sleeping and on 2L O2 via nasal canula. No acute respiratory distress. O2 sat 99%. Patient is afebrile. Patient is on I/V daptomycin for MRSA. Objective Vital Signs - 12hr 12/02/18 12/02/18 12/02/18 07:19 07:41 07:42 Temperature 98.2 F Pulse Rate 90 Pulse Rate [ 92 H Anterior Bilateral Throughout] Respiratory 20 Rate Respiratory 20 Rate [Anterior Bilateral Throughout] Blood Pressure 142/73 O2 Sat by Pulse 98 99 Oximetry 12/02/18 12/02/18 09:48 09:49 Temperature Pulse Rate 85 85 Pulse Rate [ Anterior Bilateral Throughout] Respiratory Rate Respiratory Rate [Anterior Bilateral Throughout] Blood Pressure 144/67 144/67 O2 Sat by Pulse Oximetry Constitutional: no acute distress, asleep Eyes: non-icteric ENT: oropharynx moist Neck: no lymphadenopathy, no JVD, other (mild stiffness / contracture) Effort: mildly labored Ascultation: Bilateral: diminished breath sounds, rhonchi Percussion: Bilateral: not dull Cardiovascular: regular rate and rhythm Gastrointestinal: normoactive bowel sounds, soft, non-tender, non-distended Integumentary: rash Extremities: no cyanosis, no edema, pulses normal, other (Patient has pressure ulcer at multiple areas, including sacral area.) Neurologic: non-focal exam, pupils equal and round, CN II-XII normal, other (+ contractures) Psychiatric: mood appropriate, affect normal CBC and BMP: 11/30/18 03:30 11/30/18 03:30 ABG, PT/INR, D-dimer: ABG POC ABG pH 7.494 (7.35-7.45) H 11/01/18 15:27 POC ABG pCO2 34.5 (35-45) L 11/01/18 15:27 POC ABG pO2 139 (80-105) H 11/01/18 15:27 POC ABG HCO3 26.5 (22-26 mml/L) 11/01/18 15:27 POC ABG Total CO2 28 (23-27mmol/L) 11/01/18 15:27 POC ABG O2 Sat 99 11/01/18 15:27 PT/INR, D-dimer PT 16.3 Sec. (12.2-14.9) H 11/01/18 14:50 INR 1.35 (0.87-1.13) H 11/01/18 14:50 Abnormal lab findings: Abnormal Labs 11/01/18 11/01/18 11/01/18 14:50 14:50 14:50 WBC 15.3 H RBC 2.76 L Hgb 7.9 L Hct 23.5 L MCH MCHC RDW 18.3 H Plt Count 567 H Lymph % (Auto) 6.5 L [place] % (Auto) 8.5 H Eos % (Auto) Lymph # 1.0 L [place] # 1.3 H Eos # Seg Neutrophils % 83.4 H Seg Neutrophils # 12.7 H PT 16.3 H INR 1.35 H POC ABG pH POC ABG pCO2 POC ABG pO2 VBG pH Sodium Potassium Chloride Carbon Dioxide BUN 49 H Creatinine Glucose 132 H POC Glucose Magnesium AST 90 H ALT 77 H Alkaline Phosphatase 350 H Total Creatine Kinase NT-Pro-B Natriuret Pep Albumin 1.6 L Urine WBC (Auto) Crossmatch 11/01/18 11/01/18 11/01/18 14:50 14:50 15:27 WBC RBC Hgb Hct MCH MCHC RDW Plt Count Lymph % (Auto) [place] % (Auto) Eos % (Auto) Lymph # [place] # Eos # Seg Neutrophils % Seg Neutrophils # PT INR POC ABG pH 7.494 H POC ABG pCO2 34.5 L POC ABG pO2 139 H VBG pH 7.499 H Sodium Potassium Chloride Carbon Dioxide BUN Creatinine Glucose POC Glucose Magnesium AST ALT Alkaline Phosphatase Total Creatine Kinase NT-Pro-B Natriuret Pep 6776 H Albumin Urine WBC (Auto) Crossmatch 11/01/18 11/03/18 11/03/18 15:57 03:41 03:41 WBC 12.8 H RBC 2.55 L Hgb 6.9 L Hct 22.2 L MCH 27 L MCHC 31 L RDW 17.9 H Plt Count 519 H Lymph % (Auto) [place] % (Auto) Eos % (Auto) Lymph # [place] # Eos # Seg Neutrophils % Seg Neutrophils # PT INR POC ABG pH POC ABG pCO2 POC ABG pO2 VBG pH Sodium 147 H Potassium Chloride 110.3 H Carbon Dioxide BUN 55 H Creatinine Glucose POC Glucose Magnesium AST ALT Alkaline Phosphatase Total Creatine Kinase NT-Pro-B Natriuret Pep Albumin Urine WBC (Auto) > 182.0 H Crossmatch 11/03/18 11/04/18 11/04/18 12:51 05:12 05:12 WBC 11.5 H RBC 2.94 L Hgb 8.3 L Hct 25.3 L MCH MCHC RDW 17.3 H Plt Count 514 H Lymph % (Auto) [place] % (Auto) Eos % (Auto) Lymph # [place] # Eos # Seg Neutrophils % Seg Neutrophils # PT INR POC ABG pH POC ABG pCO2 POC ABG pO2 VBG pH Sodium 147 H Potassium Chloride 112.4 H Carbon Dioxide BUN 52 H Creatinine Glucose POC Glucose Magnesium AST ALT Alkaline Phosphatase Total Creatine Kinase NT-Pro-B Natriuret Pep Albumin Urine WBC (Auto) Crossmatch See Detail 11/05/18 11/05/18 11/06/18 04:50 04:50 05:42 WBC RBC 3.03 L 2.80 L Hgb 8.7 L 7.9 L Hct 26.6 L 24.7 L MCH MCHC RDW 17.1 H 17.0 H Plt Count 502 H 478 H Lymph % (Auto) 10.4 L [place] % (Auto) 8.6 H Eos % (Auto) 4.7 H Lymph # 1.0 L [place] # Eos # 0.5 H Seg Neutrophils % 75.6 H Seg Neutrophils # PT INR POC ABG pH POC ABG pCO2 POC ABG pO2 VBG pH Sodium 149 H Potassium Chloride 114.4 H Carbon Dioxide 21 L BUN 50 H Creatinine Glucose 108 H POC Glucose Magnesium AST ALT Alkaline Phosphatase Total Creatine Kinase NT-Pro-B Natriuret Pep Albumin Urine WBC (Auto) Crossmatch 11/06/18 11/11/18 11/12/18 05:42 18:54 00:22 WBC RBC Hgb Hct MCH MCHC RDW Plt Count Lymph % (Auto) [place] % (Auto) Eos % (Auto) Lymph # [place] # Eos # Seg Neutrophils % Seg Neutrophils # PT INR POC ABG pH POC ABG pCO2 POC ABG pO2 VBG pH Sodium 149 H Potassium Chloride 113.4 H Carbon Dioxide BUN 50 H Creatinine Glucose 121 H POC Glucose 114 H 123 H Magnesium AST ALT Alkaline Phosphatase Total Creatine Kinase NT-Pro-B Natriuret Pep Albumin Urine WBC (Auto) Crossmatch 11/12/18 11/12/18 11/13/18 06:49 11:35 06:34 WBC RBC Hgb Hct MCH MCHC RDW Plt Count Lymph % (Auto) [place] % (Auto) Eos % (Auto) Lymph # [place] # Eos # Seg Neutrophils % Seg Neutrophils # PT INR POC ABG pH POC ABG pCO2 POC ABG pO2 VBG pH Sodium Potassium Chloride Carbon Dioxide BUN Creatinine Glucose POC Glucose 129 H 123 H 128 H Magnesium AST ALT Alkaline Phosphatase Total Creatine Kinase NT-Pro-B Natriuret Pep Albumin Urine WBC (Auto) Crossmatch 11/13/18 11/13/18 11/13/18 09:26 09:26 15:13 WBC RBC 3.08 L Hgb 8.6 L Hct 27.3 L MCH MCHC 31 L RDW 18.3 H Plt Count 504 H Lymph % (Auto) 11.7 L [place] % (Auto) 7.5 H Eos % (Auto) 7.0 H Lymph # [place] # Eos # 0.7 H Seg Neutrophils % 72.9 H Seg Neutrophils # PT INR POC ABG pH POC ABG pCO2 POC ABG pO2 VBG pH Sodium 153 H Potassium 6.3 H* 5.8 H Chloride 122.3 H Carbon Dioxide 21 L BUN 38 H Creatinine Glucose 112 H POC Glucose Magnesium AST ALT Alkaline Phosphatase Total Creatine Kinase NT-Pro-B Natriuret Pep Albumin Urine WBC (Auto) Crossmatch 11/13/18 11/13/18 11/14/18 22:10 23:45 13:17 WBC RBC Hgb Hct MCH MCHC RDW Plt Count Lymph % (Auto) [place] % (Auto) Eos % (Auto) Lymph # [place] # Eos # Seg Neutrophils % Seg Neutrophils # PT INR POC ABG pH POC ABG pCO2 POC ABG pO2 VBG pH Sodium 155 H Potassium 5.3 H Chloride 122.3 H Carbon Dioxide BUN 35 H Creatinine Glucose 113 H POC Glucose 111 H 142 H Magnesium AST ALT Alkaline Phosphatase Total Creatine Kinase NT-Pro-B Natriuret Pep Albumin Urine WBC (Auto) Crossmatch 11/14/18 11/15/18 11/15/18 19:08 00:31 06:45 WBC RBC Hgb Hct MCH MCHC RDW Plt Count Lymph % (Auto) [place] % (Auto) Eos % (Auto) Lymph # [place] # Eos # Seg Neutrophils % Seg Neutrophils # PT INR POC ABG pH POC ABG pCO2 POC ABG pO2 VBG pH Sodium Potassium Chloride Carbon Dioxide BUN Creatinine Glucose POC Glucose 116 H 125 H 131 H Magnesium AST ALT Alkaline Phosphatase Total Creatine Kinase NT-Pro-B Natriuret Pep Albumin Urine WBC (Auto) Crossmatch 11/15/18 11/15/18 11/15/18 07:13 07:13 19:03 WBC 13.2 H RBC 2.81 L Hgb 7.8 L Hct 24.5 L MCH MCHC RDW 18.2 H Plt Count 454 H Lymph % (Auto) 9.0 L [place] % (Auto) 7.5 H Eos % (Auto) Lymph # [place] # 1.0 H Eos # 0.5 H Seg Neutrophils % 78.8 H Seg Neutrophils # 10.4 H PT INR POC ABG pH POC ABG pCO2 POC ABG pO2 VBG pH Sodium 149 H Potassium 5.2 H Chloride 117.2 H Carbon Dioxide BUN 38 H Creatinine Glucose 114 H POC Glucose 141 H Magnesium AST ALT Alkaline Phosphatase Total Creatine Kinase NT-Pro-B Natriuret Pep Albumin Urine WBC (Auto) Crossmatch 11/16/18 11/16/18 11/16/18 01:15 01:15 06:45 WBC RBC Hgb Hct MCH MCHC RDW Plt Count Lymph % (Auto) [place] % (Auto) Eos % (Auto) Lymph # [place] # Eos # Seg Neutrophils % Seg Neutrophils # PT INR POC ABG pH POC ABG pCO2 POC ABG pO2 VBG pH Sodium Potassium 5.3 H Chloride Carbon Dioxide BUN Creatinine Glucose POC Glucose 129 H Magnesium 2.60 H AST ALT Alkaline Phosphatase Total Creatine Kinase NT-Pro-B Natriuret Pep Albumin Urine WBC (Auto) Crossmatch 11/16/18 11/16/18 11/17/18 13:20 18:02 00:16 WBC RBC Hgb Hct MCH MCHC RDW Plt Count Lymph % (Auto) [place] % (Auto) Eos % (Auto) Lymph # [place] # Eos # Seg Neutrophils % Seg Neutrophils # PT INR POC ABG pH POC ABG pCO2 POC ABG pO2 VBG pH Sodium Potassium Chloride Carbon Dioxide BUN Creatinine Glucose POC Glucose 130 H 127 H 120 H Magnesium AST ALT Alkaline Phosphatase Total Creatine Kinase NT-Pro-B Natriuret Pep Albumin Urine WBC (Auto) Crossmatch 11/17/18 11/17/18 11/17/18 05:48 08:02 08:02 WBC RBC Hgb 7.5 L Hct 23.5 L MCH MCHC RDW Plt Count Lymph % (Auto) [place] % (Auto) Eos % (Auto) Lymph # [place] # Eos # Seg Neutrophils % Seg Neutrophils # PT INR POC ABG pH POC ABG pCO2 POC ABG pO2 VBG pH Sodium Potassium Chloride 110.1 H Carbon Dioxide 21 L BUN 38 H Creatinine Glucose 121 H POC Glucose 130 H Magnesium AST ALT Alkaline Phosphatase Total Creatine Kinase NT-Pro-B Natriuret Pep Albumin Urine WBC (Auto) Crossmatch 11/17/18 11/17/18 11/18/18 12:17 16:48 06:00 WBC RBC Hgb Hct MCH MCHC RDW Plt Count Lymph % (Auto) [place] % (Auto) Eos % (Auto) Lymph # [place] # Eos # Seg Neutrophils % Seg Neutrophils # PT INR POC ABG pH POC ABG pCO2 POC ABG pO2 VBG pH Sodium Potassium Chloride Carbon Dioxide BUN Creatinine Glucose POC Glucose 140 H 120 H 137 H Magnesium AST ALT Alkaline Phosphatase Total Creatine Kinase NT-Pro-B Natriuret Pep Albumin Urine WBC (Auto) Crossmatch 11/19/18 11/19/18 11/19/18 00:20 05:35 06:11 WBC RBC Hgb Hct MCH MCHC RDW Plt Count Lymph % (Auto) [place] % (Auto) Eos % (Auto) Lymph # [place] # Eos # Seg Neutrophils % Seg Neutrophils # PT INR POC ABG pH POC ABG pCO2 POC ABG pO2 VBG pH Sodium Potassium Chloride Carbon Dioxide BUN Creatinine Glucose POC Glucose 111 H 126 H Magnesium AST ALT Alkaline Phosphatase Total Creatine Kinase 53 L NT-Pro-B Natriuret Pep Albumin Urine WBC (Auto) Crossmatch 11/19/18 11/19/18 11/20/18 11:37 23:43 06:52 WBC RBC Hgb Hct MCH MCHC RDW Plt Count Lymph % (Auto) [place] % (Auto) Eos % (Auto) Lymph # [place] # Eos # Seg Neutrophils % Seg Neutrophils # PT INR POC ABG pH POC ABG pCO2 POC ABG pO2 VBG pH Sodium Potassium Chloride Carbon Dioxide BUN Creatinine Glucose POC Glucose 139 H 145 H 125 H Magnesium AST ALT Alkaline Phosphatase Total Creatine Kinase NT-Pro-B Natriuret Pep Albumin Urine WBC (Auto) Crossmatch 11/20/18 11/20/18 11/20/18 09:55 09:55 11:49 WBC RBC 3.04 L Hgb 8.4 L Hct 26.1 L MCH MCHC RDW 17.5 H Plt Count Lymph % (Auto) [place] % (Auto) Eos % (Auto) Lymph # [place] # Eos # Seg Neutrophils % Seg Neutrophils # PT INR POC ABG pH POC ABG pCO2 POC ABG pO2 VBG pH Sodium 149 H Potassium Chloride 114.5 H Carbon Dioxide 21 L BUN 35 H Creatinine Glucose 127 H POC Glucose 150 H Magnesium AST ALT Alkaline Phosphatase Total Creatine Kinase NT-Pro-B Natriuret Pep Albumin Urine WBC (Auto) Crossmatch 11/20/18 11/20/18 11/21/18 18:02 23:49 06:14 WBC RBC Hgb Hct MCH MCHC RDW Plt Count Lymph % (Auto) [place] % (Auto) Eos % (Auto) Lymph # [place] # Eos # Seg Neutrophils % Seg Neutrophils # PT INR POC ABG pH POC ABG pCO2 POC ABG pO2 VBG pH Sodium Potassium Chloride Carbon Dioxide BUN Creatinine Glucose POC Glucose 131 H 137 H 133 H Magnesium AST ALT Alkaline Phosphatase Total Creatine Kinase NT-Pro-B Natriuret Pep Albumin Urine WBC (Auto) Crossmatch 11/21/18 11/21/18 11/21/18 10:00 12:09 18:04 WBC RBC Hgb Hct MCH MCHC RDW Plt Count Lymph % (Auto) [place] % (Auto) Eos % (Auto) Lymph # [place] # Eos # Seg Neutrophils % Seg Neutrophils # PT INR POC ABG pH POC ABG pCO2 POC ABG pO2 VBG pH Sodium Potassium Chloride 110.6 H Carbon Dioxide BUN 31 H Creatinine Glucose 119 H POC Glucose 116 H 126 H Magnesium AST ALT Alkaline Phosphatase Total Creatine Kinase NT-Pro-B Natriuret Pep Albumin Urine WBC (Auto) Crossmatch 11/22/18 11/22/18 11/22/18 00:14 05:47 06:23 WBC RBC Hgb Hct MCH MCHC RDW Plt Count Lymph % (Auto) [place] % (Auto) Eos % (Auto) Lymph # [place] # Eos # Seg Neutrophils % Seg Neutrophils # PT INR POC ABG pH POC ABG pCO2 POC ABG pO2 VBG pH Sodium Potassium Chloride 107.6 H Carbon Dioxide BUN 32 H Creatinine 0.7 L Glucose 116 H POC Glucose 122 H 119 H Magnesium AST ALT Alkaline Phosphatase Total Creatine Kinase NT-Pro-B Natriuret Pep Albumin Urine WBC (Auto) Crossmatch 11/22/18 11/22/18 11/22/18 08:40 12:19 17:39 WBC RBC Hgb Hct MCH MCHC RDW Plt Count Lymph % (Auto) [place] % (Auto) Eos % (Auto) Lymph # [place] # Eos # Seg Neutrophils % Seg Neutrophils # PT INR POC ABG pH POC ABG pCO2 POC ABG pO2 VBG pH Sodium Potassium Chloride Carbon Dioxide BUN Creatinine Glucose POC Glucose 150 H 111 H 108 H Magnesium AST ALT Alkaline Phosphatase Total Creatine Kinase NT-Pro-B Natriuret Pep Albumin Urine WBC (Auto) Crossmatch 11/23/18 11/23/18 11/23/18 00:36 05:37 05:56 WBC RBC Hgb Hct MCH MCHC RDW Plt Count Lymph % (Auto) [place] % (Auto) Eos % (Auto) Lymph # [place] # Eos # Seg Neutrophils % Seg Neutrophils # PT INR POC ABG pH POC ABG pCO2 POC ABG pO2 VBG pH Sodium 136 L Potassium Chloride Carbon Dioxide BUN 30 H Creatinine 0.7 L Glucose 103 H POC Glucose 125 H 122 H Magnesium 2.50 H AST ALT Alkaline Phosphatase Total Creatine Kinase NT-Pro-B Natriuret Pep Albumin Urine WBC (Auto) Crossmatch 11/23/18 11/23/18 11/23/18 11:56 17:39 23:40 WBC RBC Hgb Hct MCH MCHC RDW Plt Count Lymph % (Auto) [place] % (Auto) Eos % (Auto) Lymph # [place] # Eos # Seg Neutrophils % Seg Neutrophils # PT INR POC ABG pH POC ABG pCO2 POC ABG pO2 VBG pH Sodium Potassium Chloride Carbon Dioxide BUN Creatinine Glucose POC Glucose 121 H 113 H 117 H Magnesium AST ALT Alkaline Phosphatase Total Creatine Kinase NT-Pro-B Natriuret Pep Albumin Urine WBC (Auto) Crossmatch 11/24/18 11/24/18 11/24/18 05:13 12:00 18:13 WBC RBC Hgb Hct MCH MCHC RDW Plt Count Lymph % (Auto) [place] % (Auto) Eos % (Auto) Lymph # [place] # Eos # Seg Neutrophils % Seg Neutrophils # PT INR POC ABG pH POC ABG pCO2 POC ABG pO2 VBG pH Sodium Potassium Chloride Carbon Dioxide BUN Creatinine Glucose POC Glucose 143 H 123 H 124 H Magnesium AST ALT Alkaline Phosphatase Total Creatine Kinase NT-Pro-B Natriuret Pep Albumin Urine WBC (Auto) Crossmatch 11/24/18 11/25/18 11/25/18 23:34 05:25 05:25 WBC RBC 2.48 L Hgb 6.8 L Hct 21.2 L MCH MCHC RDW 17.7 H Plt Count Lymph % (Auto) [place] % (Auto) Eos % (Auto) Lymph # [place] # Eos # Seg Neutrophils % Seg Neutrophils # PT INR POC ABG pH POC ABG pCO2 POC ABG pO2 VBG pH Sodium Potassium Chloride 108.8 H Carbon Dioxide BUN 30 H Creatinine 0.7 L Glucose 112 H POC Glucose 115 H Magnesium AST ALT Alkaline Phosphatase Total Creatine Kinase NT-Pro-B Natriuret Pep Albumin Urine WBC (Auto) Crossmatch 11/25/18 11/25/18 11/25/18 06:46 11:15 11:28 WBC RBC Hgb 7.4 L Hct 23.0 L MCH MCHC RDW Plt Count Lymph % (Auto) [place] % (Auto) Eos % (Auto) Lymph # [place] # Eos # Seg Neutrophils % Seg Neutrophils # PT INR POC ABG pH POC ABG pCO2 POC ABG pO2 VBG pH Sodium Potassium Chloride Carbon Dioxide BUN Creatinine Glucose POC Glucose 133 H 127 H Magnesium AST ALT Alkaline Phosphatase Total Creatine Kinase NT-Pro-B Natriuret Pep Albumin Urine WBC (Auto) Crossmatch 11/25/18 11/25/18 11/25/18 15:28 17:32 23:45 WBC RBC Hgb Hct MCH MCHC RDW Plt Count Lymph % (Auto) [place] % (Auto) Eos % (Auto) Lymph # [place] # Eos # Seg Neutrophils % Seg Neutrophils # PT INR POC ABG pH POC ABG pCO2 POC ABG pO2 VBG pH Sodium Potassium Chloride Carbon Dioxide BUN Creatinine Glucose POC Glucose 115 H 130 H Magnesium AST ALT Alkaline Phosphatase Total Creatine Kinase NT-Pro-B Natriuret Pep Albumin Urine WBC (Auto) Crossmatch See Detail 11/26/18 11/26/18 11/26/18 06:13 06:20 06:20 WBC RBC 2.76 L Hgb 7.7 L Hct 23.4 L MCH MCHC RDW 17.5 H Plt Count Lymph % (Auto) [place] % (Auto) Eos % (Auto) Lymph # [place] # Eos # Seg Neutrophils % Seg Neutrophils # PT INR POC ABG pH POC ABG pCO2 POC ABG pO2 VBG pH Sodium Potassium Chloride 109.9 H Carbon Dioxide BUN 30 H Creatinine 0.6 L Glucose 121 H POC Glucose 129 H Magnesium AST ALT Alkaline Phosphatase Total Creatine Kinase NT-Pro-B Natriuret Pep Albumin Urine WBC (Auto) Crossmatch 11/26/18 11/26/18 11/27/18 12:06 16:35 06:04 WBC RBC Hgb Hct MCH MCHC RDW Plt Count Lymph % (Auto) [place] % (Auto) Eos % (Auto) Lymph # [place] # Eos # Seg Neutrophils % Seg Neutrophils # PT INR POC ABG pH POC ABG pCO2 POC ABG pO2 VBG pH Sodium Potassium Chloride Carbon Dioxide BUN Creatinine Glucose POC Glucose 139 H 107 H 126 H Magnesium AST ALT Alkaline Phosphatase Total Creatine Kinase NT-Pro-B Natriuret Pep Albumin Urine WBC (Auto) Crossmatch 11/27/18 11/27/18 11/28/18 13:14 17:47 07:03 WBC RBC Hgb Hct MCH MCHC RDW Plt Count Lymph % (Auto) [place] % (Auto) Eos % (Auto) Lymph # [place] # Eos # Seg Neutrophils % Seg Neutrophils # PT INR POC ABG pH POC ABG pCO2 POC ABG pO2 VBG pH Sodium Potassium Chloride Carbon Dioxide BUN Creatinine Glucose POC Glucose 130 H 115 H 118 H Magnesium AST ALT Alkaline Phosphatase Total Creatine Kinase NT-Pro-B Natriuret Pep Albumin Urine WBC (Auto) Crossmatch 11/28/18 11/29/18 11/29/18 11:38 00:35 04:56 WBC RBC Hgb Hct MCH MCHC RDW Plt Count Lymph % (Auto) [place] % (Auto) Eos % (Auto) Lymph # [place] # Eos # Seg Neutrophils % Seg Neutrophils # PT INR POC ABG pH POC ABG pCO2 POC ABG pO2 VBG pH Sodium Potassium Chloride Carbon Dioxide BUN Creatinine Glucose POC Glucose 126 H 107 H Magnesium AST ALT Alkaline Phosphatase Total Creatine Kinase 50 L NT-Pro-B Natriuret Pep Albumin Urine WBC (Auto) Crossmatch 11/29/18 11/29/18 11/29/18 05:49 11:46 18:17 WBC RBC Hgb Hct MCH MCHC RDW Plt Count Lymph % (Auto) [place] % (Auto) Eos % (Auto) Lymph # [place] # Eos # Seg Neutrophils % Seg Neutrophils # PT INR POC ABG pH POC ABG pCO2 POC ABG pO2 VBG pH Sodium Potassium Chloride Carbon Dioxide BUN Creatinine Glucose POC Glucose 128 H 140 H 115 H Magnesium AST ALT Alkaline Phosphatase Total Creatine Kinase NT-Pro-B Natriuret Pep Albumin Urine WBC (Auto) Crossmatch 11/30/18 11/30/18 11/30/18 00:00 03:30 03:30 WBC RBC 2.97 L Hgb 8.1 L Hct 25.5 L MCH 27 L MCHC RDW 17.7 H Plt Count Lymph % (Auto) 9.2 L [place] % (Auto) 10.0 H Eos % (Auto) 4.6 H Lymph # 1.0 L [place] # 1.1 H Eos # 0.5 H Seg Neutrophils % 75.6 H Seg Neutrophils # 8.4 H PT INR POC ABG pH POC ABG pCO2 POC ABG pO2 VBG pH Sodium Potassium Chloride Carbon Dioxide BUN 31 H Creatinine 0.7 L Glucose POC Glucose 120 H Magnesium AST ALT Alkaline Phosphatase Total Creatine Kinase NT-Pro-B Natriuret Pep Albumin Urine WBC (Auto) Crossmatch 11/30/18 11/30/1811/30/19 06:54 11:45 16:59 WBC RBC Hgb Hct MCH MCHC RDW Plt Count Lymph % (Auto) [place] % (Auto) Eos % (Auto) Lymph # [place] # Eos # Seg Neutrophils % Seg Neutrophils # PT INR POC ABG pH POC ABG pCO2 POC ABG pO2 VBG pH Sodium Potassium Chloride Carbon Dioxide BUN Creatinine Glucose POC Glucose 120 H 123 H 111 H Magnesium AST ALT Alkaline Phosphatase Total Creatine Kinase NT-Pro-B Natriuret Pep Albumin Urine WBC (Auto) Crossmatch 12/01/18 12/01/18 12/01/18 00:20 05:58 11:33 WBC RBC Hgb Hct MCH MCHC RDW Plt Count Lymph % (Auto) [place] % (Auto) Eos % (Auto) Lymph # [place] # Eos # Seg Neutrophils % Seg Neutrophils # PT INR POC ABG pH POC ABG pCO2 POC ABG pO2 VBG pH Sodium Potassium Chloride Carbon Dioxide BUN Creatinine Glucose POC Glucose 113 H 127 H 138 H Magnesium AST ALT Alkaline Phosphatase Total Creatine Kinase NT-Pro-B Natriuret Pep Albumin Urine WBC (Auto) Crossmatch 12/02/18 00:33 WBC RBC Hgb Hct MCH MCHC RDW Plt Count Lymph % (Auto) [place] % (Auto) Eos % (Auto) Lymph # [place] # Eos # Seg Neutrophils % Seg Neutrophils # PT INR POC ABG pH POC ABG pCO2 POC ABG pO2 VBG pH Sodium Potassium Chloride Carbon Dioxide BUN Creatinine Glucose POC Glucose 110 H Magnesium AST ALT Alkaline Phosphatase Total Creatine Kinase NT-Pro-B Natriuret Pep Albumin Urine WBC (Auto) Crossmatch Allied health notes reviewed: nursing
--- NOTE | 2018-12-02 20:00 | Progress Note ---
Assessment and Plan Cultures: Blood culture 10/01/2018 MRSA 2 of 4. Blood culture 10/03/2018 MRSA Blood culture 10/08/2018 no growth Blood culture 10/11/2018 no growth Blood culture 10/21/2018 no growth Blood culture 11/01/2018 Staph haemolyticus 2 of 4 bottles, resistent to methicillin and MRSA 1 of 4 bottles Blood culture 11/04/2018 no growth Assessment: 67 y/o male with history of HTN, CVA, Obstructive Uropathy, Contracture, Multiple Decubitus Ulcers, AL, DM, OA, Seizure Disorder, COPD, Dementia, Debility, BPH, well known to ID due to multiple admissions secondary to ducubitus ulcers infections and recurrent bacteremia, last time admitted on 10/02/2018 found with MRSA bacteremia jessica from decubitus ulcers mainly active large left trochanteric with bone exposure and sacral with bone exposure. Patient's infection was deemed incurable and hospice was recommended. Patient was discharged back to [place] on IV vancomycin 1 gm every 48 hours for total 6 weeks ending 11/12/2018 via neck tunneled cath. Patient was readmitted on due to AMS, worsening SOB. Patient is lethargic and unable to provide history. At the [place] he was found to have respiratory distress upon evaluation the morning of admission,pulse oximetry in the 80's: 1) Severe Sepsis: no fever x 24h. Etiology most likely Recurrent Staph bacteremia +/- CAUTI. 2) Staph haemolyticus and MRSA bacteremia with recent MRSA bacteremia: Blood culture 11/01/2018 Staph haemolyticus 2 of 4 bottles and MRSA 1 of 4. Source likely multiple decubitus ulcers or Neck IV central line. Patient is failing vancomycin. He has a tunneled neck cath. Recent TTE negative for vegetations. On daptomycin. 3) Recent septic shock due to polymicrobial bacteremia ESBL and carbapenem resistant E coli, MDR Proteus, Strep and E faecalis on 07/29/2018 probably from multiple infected decubitus ulcers and less likely UTI. Repeat blood cultures 07/31/2018 showed same MDR E coli 1 of 4 bottles then 08/06/2018 blood cultures showed no growth. Patient was treated with Vabomere for 14 days. 4) Multiple infected decubitus ulcers: His prognosis has been poor and hospice has been recommended several times in the past but family has declined. declined. His wounds are not curable considering his contractures, bed bound status and poor nutritional status. There was also suspicion of septic arthritis of left hip from decubitus ulcer. S/p debridement of multiple pressure ulcerations on 11/07/2018- stage 4 left hip pressure ulceration was surgically excisionally debrided of necrotic bone, stage 3 sacral, right ankle and left heel pressure ulcers were then surgically, excisionally debrided of necrotic SQ fat, stage 4 right heel, left lateral heel and right lateral leg ulcerations were surgically, excisionally debrided of necrotic SQ tissue, muscle and fascia. Dr Man recommended bilateral AKA, patient and daughter refused. Dr Man recommended Orthopedic consultation for possible left hip disarticulation as his left hip joint is crumbling and has profuse purulent drainage. 5) Recurrent UTI: patient's bright was removed home 2 weeks ago, a new bright placed here 6) Acute encephalopathy: multifactorial. 7) Acute resp failure: was on BIPAP now [place] O2. EF 30-35% pericaldial and pleural effusion. 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 He needs to be on contact isolation. This cannot be cured with antibiotics. Needs to be hospice continue daptomycin at discharge will do daptomycin 400 mg IV q day for 6 weeks until 12/16/2018 Grim prognosis. Will follow. Penny Bernardo MD Infectious Diseases Picture Frame Maker [facility] ([facility]) M [phone] Subjective Date of service: 12/02/18 Principal diagnosis: Severe Sepsis; Ac. Hypoxemic Resp failure; Anemia; Seizure; UTI; BPH Interval history: Patient reports no complaints no fever Objective - Exam Narrative Exam: General appearance: alert in NAD severely contracted Eyes: anicteric sclerae, moist conjunctivae; no lid-lag; PERRLA HENT: Atraumatic; oropharynx limited Neck: Trachea midline; supple, no thyromegaly or lymphadenopathy Lungs: CTA CV: RRR Abdomen: Soft, non-tender Extremities: marked legs contractions, multiple decubitus ulcers covered with dressings +left hip wound VAC Skin: multiple skin tears Psych: no agitated. Neuro: alert - Constitutional Vitals: Vital Signs Temp Pulse Resp BP Pulse Ox 98.6 F 95 H 18 156/76 98 12/02/18 19:47 12/02/18 19:47 12/02/18 19:47 12/02/18 19:47 12/02/18 19:47 Temperature -Last 24 Hours Temperature 98.6 F Temperature 98.5 F Temperature 98.2 F Temperature 98.5 F Temperature 97.8 F - Labs CBC & Chem 7: 11/30/18 03:30 11/30/18 03:30 Labs: Abnormal lab results 12/02/18 Range/Units 00:33 POC Glucose 110 H (70-105)
[2018-12-03 05:47] LABS: Basophils # (Auto) 0.1 K/mm3 (0.0-0.1); Basophils % (Auto) 0.9 % (0.0-1.8); Eosinophils # (Auto) 0.5 K/mm3 (0.0-0.4); Eosinophils % (Auto) 5.4 % (0.0-4.3); Hematocrit 24.9 % (35.5-45.6); Hemoglobin 8.2 gm/dl (11.8-15.2); Lymphocytes # (Auto) 0.9 K/mm3 (1.2-5.4); Lymphocytes % (Auto) 9.3 % (13.4-35.0); Mean Corpuscular HGB Conc 33 % (32-34); Mean Corpuscular Volume 85 fl (84-94); Monocytes # (Auto) 0.8 K/mm3 (0.0-0.8); Monocytes % (Auto) 8.6 % (0.0-7.3); Platelet Count 470 K/mm3 (140-440); Red Blood Count 2.93 M/mm3 (3.65-5.03)
[2018-12-03 06:07] LABS: BUN/Creatinine Ratio 50; Blood Urea Nitrogen 30 mg/dL (9-20); Calcium 9.5 mg/dL (8.4-10.2); Hemolysis Index 4
[2018-12-03] MEDS: DUONEB *Not for PRN Use IH SCH ×2 (08:55→21:54)
[2018-12-03] MEDS: ZINC SULFATE PO SCH (10:08)
[2018-12-03] MEDS: KEPPRA FEEDTUBE SCH ×2 (10:08→22:00)
[2018-12-03] MEDS: LOVENOX SUB-Q SCH (10:08)
[2018-12-03] MEDS: APRESOLINE PO SCH ×2 (10:09→22:00)
[2018-12-03] MEDS: COREG PO SCH ×2 (10:09→22:00)
[2018-12-03] MEDS: Centrum Liq FEEDTUBE SCH (10:09)
[2018-12-03] MEDS: VITAMIN C FEEDTUBE SCH ×2 (10:09→22:01)
[2018-12-03] MEDS: SODIUM CHLORIDE FLUSH SYRINGE 10 ML IV SCH (10:10)
--- NOTE | 2018-12-03 11:21 | Progress Note ---
Assessment and Plan Assessment and plan: 67 YO Male Shelter Facility Resident as [facility] with HTN, CVA, Obstructive Uropathy, Diastolic CHF, Contracture, Sacral Decubitus Ulcers, DE, DM, OA, Seizure Disorder, COPD, Dementia, BPH presents to ED for evaluation. Pt is stuporous and unable to provide history. Pt history taken from ED Staff, EMS, and SNF Staff. As per staff, the patient was found to have respiratory distress upon evaluation this morning. Pt found to have pulse oximetry in the 80's. EMS notified and patient subsequently transported to [facility] for further care and evaluation. Pt seen and evaluated in ED and found to have UTI, Sepsis, Encephalopathy as well as Acute Hypoxemic Respiratory Failure. Pt initiated on NIPPV in ED with improvement in symptoms. Pt admitted to IMCU and initiated on Sepsis protocol. Prior admission on 10/01/18 reviewed. Extensive discussion with family about patients poor prognosis surgery consult appreciated ID following, Pulmonary status improved Continue isolation care Chaudhary placed by Urology please do not remove Sepsis Continue IMCU care, place on isolation, ID consult noted, patient is on IV daptomycin blood cultures with gram positive Multiple hx of MRSA, Multi organ Monitor uop q shift. ID recumbent because Synthroid Respiratory failure Supplemental oxygen, nebulizer therapy,pulse oximetry, Chest X ray, NIPPV UNABLE TO GET v/q scan Pulmonary following the patient Anemia of chronic disease Transfuse one unit PRBC hemoglobin is stable Seizure Continue current therapy, seizure precautions. UTI (urinary tract infection) IV antibiotic therapy, CBC, CMP, Urinalysis. BPH Continue Chaudhary catherter Dementia IVF resuscitation therapy, supportive care, treat sepsis. sacral pressure ulcer -infected. POA WOUND CARE CONSULT. CONTINUE ABX. Debridement done by Dr Man Amputation recommended and the daughter refused Orthopedics consulted for hip disarticulation but said transfer if needed The wound involved the bone and orthopedics consulted. DVT prophylaxis Current Visit: Yes Status: Acute Plan to address problem: SCD to BLE while in bed, Prophylactic lovenox POOR PROGNOSIS Disposition; Pending placement to SNF. History Interval history: Patient was seen and evaluated this morning, patient is complaining shoulder pain Hospitalist Physical - Physical exam Narrative exam: Not in cardiopulmonary distress. The patient appeared well nourished and normally developed. Vital signs as documented. Head exam is unremarkable. No scleral icterus . Neck is without jugular venous distension, thyromegaly, or carotid bruits. Lungs are clear to auscultation. Cardiac exam reveals regular rate and Rhythm. First and second heart sounds normal. No murmurs, rubs or gallops. Abdominal exam reveals normal bowel sounds, no masses, no organomegaly and no aortic enlargement. Extremities contracted extremities. 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 Skin; multiple decubitus ulcers, including the sacrum and the heel. - Constitutional Vitals: Temp Pulse Resp BP Pulse Ox 97.9 F 94 H 20 151/84 100 12/03/18 07:33 12/03/18 10:09 12/03/18 07:33 12/03/18 10:09 12/03/18 07:33 General appearance: Present: no acute distress Results - Labs CBC & Chem 7: 12/03/18 05:07 12/03/18 05:07 Labs: Laboratory Last Values WBC 9.4 K/mm3 (4.5-11.0) 12/03/18 05:07 RBC 2.93 M/mm3 (3.65-5.03) L 12/03/18 05:07 Hgb 8.2 gm/dl (11.8-15.2) L 12/03/18 05:07 Hct 24.9 % (35.5-45.6) L 12/03/18 05:07 MCV 85 fl (84-94) 12/03/18 05:07 MCH 28 pg (28-32) 12/03/18 05:07 MCHC 33 % (32-34) 12/03/18 05:07 RDW 17.0 % (13.2-15.2) H 12/03/18 05:07 Plt Count 470 K/mm3 (140-440) H 12/03/18 05:07 Lymph % (Auto) 9.3 % (13.4-35.0) L 12/03/18 05:07 Jenkins % (Auto) 8.6 % (0.0-7.3) H 12/03/18 05:07 Eos % (Auto) 5.4 % (0.0-4.3) H 12/03/18 05:07 Baso % (Auto) 0.9 % (0.0-1.8) 12/03/18 05:07 Lymph # 0.9 K/mm3 (1.2-5.4) L 12/03/18 05:07 Jenkins # 0.8 K/mm3 (0.0-0.8) 12/03/18 05:07 Eos # 0.5 K/mm3 (0.0-0.4) H 12/03/18 05:07 Baso # 0.1 K/mm3 (0.0-0.1) 12/03/18 05:07 Seg Neutrophils % 75.8 % (40.0-70.0) H 12/03/18 05:07 Seg Neutrophils # 7.1 K/mm3 (1.8-7.7) 12/03/18 05:07 PT 16.3 Sec. (12.2-14.9) H 11/01/18 14:50 INR 1.35 (0.87-1.13) H 11/01/18 14:50 POC ABG pH 7.494 (7.35-7.45) H 11/01/18 15:27 POC ABG pCO2 34.5 (35-45) L 11/01/18 15:27 POC ABG pO2 139 (80-105) H 11/01/18 15:27 POC ABG HCO3 26.5 (22-26 mml/L) 11/01/18 15:27 POC ABG Total CO2 28 (23-27mmol/L) 11/01/18 15:27 POC ABG O2 Sat 99 11/01/18 15:27 POC ABG Base Excess 3 ((-2) - (+3)mmol/L) 11/01/18 15:27 VBG pH 7.499 (7.320-7.420) H 11/01/18 14:50 50 % 11/01/18 15:27 Sodium 140 mmol/L (137-145) 12/03/18 05:07 Potassium 3.7 mmol/L (3.6-5.0) 12/03/18 05:07 Chloride 106.5 mmol/L (98-107) 12/03/18 05:07 Carbon Dioxide 23 mmol/L (22-30) 12/03/18 05:07 14 mmol/L 12/03/18 05:07 BUN 30 mg/dL (9-20) H 12/03/18 05:07 0.6 mg/dL (0.8-1.5) L 12/03/18 05:07 Estimated GFR > 60 ml/min 12/03/18 05:07 50 % 12/03/18 05:07 Glucose 115 mg/dL (75-100) H 12/03/18 05:07 POC Glucose 127 (70-105) H 12/03/18 05:58 Lactic Acid 1.80 mmol/L (0.7-2.0) 11/01/18 14:50 Calcium 9.5 mg/dL (8.4-10.2) 12/03/18 05:07 Phosphorus 2.90 mg/dL (2.5-4.5) 11/22/18 09:43 Magnesium 2.50 mg/dL (1.7-2.3) H 11/23/18 05:56 0.30 mg/dL (0.1-1.2) 11/01/18 14:50 AST 90 units/L (5-40) H 11/01/18 14:50 ALT 77 units/L (7-56) H 11/01/18 14:50 350 units/L (35-129) H 11/01/18 14:50 72 units/L (55-170) 11/30/18 00:31 NT-Pro-B Natriuret Pep 6776 pg/mL (0-900) H 11/01/18 14:50 7.9 g/dL (6.3-8.2) 11/01/18 14:50 1.6 g/dL (3.9-5) L 11/01/18 14:50 0.3 % 11/01/18 14:50 14 units/L (13-60) 11/25/18 15:07 Yellow (Yellow) 11/01/18 15:57 Turbid (Clear) 11/01/18 15:57 6.0 (5.0-7.0) 11/01/18 15:57 Ur Specific [place] 1.016 (1.003-1.030) 11/01/18 15:57 100 mg/dl mg/dL (Negative) 11/01/18 15:57 Neg mg/dL (Negative) 11/01/18 15:57 Neg mg/dL (Negative) 11/01/18 15:57 Neg (Negative) 11/01/18 15:57 Neg (Negative) 11/01/18 15:57 Neg (Negative) 11/01/18 15:57 < 2.0 mg/dL (<2.0) 11/01/18 15:57 Ur Leukocyte Esterase Mod (Negative) 11/01/18 15:57 > 182.0 /HPF (0.0-6.0) H 11/01/18 15:57 40.0 /HPF (0.0-6.0) 11/01/18 15:57 U Epithel Cells (Auto) 8.0 /HPF (0-13.0) 11/01/18 15:57 3+ /HPF 11/01/18 15:57 3+ /HPF 11/01/18 15:57 Random Vancomycin 13.9 ug/mL (0-40.0) 11/02/18 05:05 Blood Type O POSITIVE 11/25/18 15:28 Antibody Screen Negative 11/25/18 15:28 Crossmatch See Detail 11/25/18 15:28 Active Medications - Current Medications Current Medications: Generic Name Dose Route Start Last Admin Trade Name Freq PRN Reason Stop Dose Admin Acetaminophen/Hydrocodone Bitart 1 each 11/15/18 04:51 11/22/18 21:33 [place] 5/325 PO 1 each Q4H PRN Administration Pain, Moderate (4-6) Albuterol 2.5 mg 11/01/18 17:15 Proventil IH Q3HRT PRN Shortness Of Breath Albuterol/Ipratropium 1 ampul 11/28/18 20:00 12/03/18 08:55 Duoneb *Not For Prn Use* IH 1 ampul BIDRT NORA Administration Lipase/Protease/Amylase 1 each 11/03/18 17:12 12/02/18 08:40 Pancreazadela Moore 10,500 Unit FEEDTUBE 1 each PRN PRN Administration For Clogged Feeding Tube Ascorbic Acid 500 mg 11/01/18 22:00 12/03/18 10:09 Vitamin C FEEDTUBE 500 mg BID NORA Administration Atorvastatin Calcium 40 mg 11/01/18 22:00 12/02/18 22:13 Lipitor FEEDTUBE 40 mg QHS NORA Administration Carvedilol 6.25 mg 11/08/18 13:00 12/03/18 10:09 Coreg PO 6.25 mg BID NORA Administration Clonidine HCl 0.2 mg 11/05/18 17:18 11/26/18 17:32 Catapres-Tts Patch TD 0.2 mg Tu NORA Administration Enoxaparin Sodium 40 mg 11/02/18 10:00 12/03/18 10:08 Lovenox SUB-Q 40 mg QDAY@1000 NORA Administration Hydralazine HCl 10 mg 11/25/18 22:00 12/03/18 10:09 Apresoline PO 10 mg Q12HR NORA Administration Daptomycin 400 mg/ Sodium 100 mls @ 200 mls/hr 11/25/18 11:00 12/02/18 10:45 Chloride IV 12/16/18 11:29 200 mls/hr Q24H NORA Administration Protocol Levetiracetam 500 mg 11/01/18 22:00 12/03/18 10:08 Keppra FEEDTUBE 500 mg BID NORA Administration Morphine Sulfate 2 mg 11/01/18 17:15 11/30/18 21:15 Morphine IV 2 mg Q4H PRN Administration Pain, Moderate (4-6) Multivitamins 5 ml 11/02/18 10:00 12/03/18 10:09 Centrum Liq FEEDTUBE 5 ml QDAY NORA Administration Simple Syrup 15 ml 11/03/18 17:12 11/16/18 13:40 Simple Syrup FEEDTUBE 15 ml PRN PRN Administration Hypoglycemia Simple Syrup 30 ml 11/03/18 17:12 Simple Syrup FEEDTUBE PRN PRN Hypoglycemia Sodium Bicarbonate 325 mg 11/03/18 17:12 12/02/18 08:40 Sodium Bicarbonate FEEDTUBE 325 mg PRN PRN Administration For Clogged Feeding Tube Sodium Chloride 10 ml 11/01/18 22:00 12/03/18 10:10 Sodium Chloride Flush Syringe 10 Ml IV 10 ml BID NORA Administration Sodium Chloride 10 ml 11/01/18 17:15 11/23/18 04:05 Sodium Chloride Flush Syringe 10 Ml IV 10 ml PRN PRN Administration LINE FLUSH Zinc Sulfate 220 mg 11/02/18 10:00 12/03/18 10:08 Zinc Sulfate PO 220 mg DAILY NORA Administration Nutrition/Malnutrition Assess - Dietary Evaluation Nutrition/Malnutrition Findings: Nutrition Notes Start: 11/04/18 16:00 Freq: Status: Active Protocol: Document 11/29/18 15:47 RM (Rec: 11/29/18 15:48 RM [id number]) Nutrition Notes Initial or Follow up Reassessment Current Diagnosis COPD,Diabetes,Sepsis, Hypertension,Heart Failure, Stroke Other Pertinent Diagnosis Sacral PUs, UTI, Dementia Current Diet Nepro at 40 ml/hr Labs/Tests No recent labs Pertinent Medications Reviewed Height 5 ft 8 in Weight 62.4 kg Lynch Body Weight (kg) 70.00 BMI 20.9 Subjective/Other Information Observed Nepro infusing at goal rate. Percent of energy/protein needs met: 100%/100% Burn Absent Trauma Absent #1 Nutrition Diagnosis Inadequate oral intake Diagnosis Progress(for reassessment Continues documentation) Is patient on ventilator? No Is Patient Ambulatory and/or Out of Bed No REE-([facility]-confined to bed) 1322.080 Calculation Used for Recommendations [facility] Additional Notes Protein Needs: 76-95g (1.2-1. 5g/kg) Fluid Needs: 1 ml/kcal Nutrition Intervention Nutrition Support: Nepro 1.8 at 40 ml/hr. Water flush of 200 mls q 4 hrs . Kcal 1,728 Protein (gm) 78 Fluid (mL) 698 Goal #1 TF tolerance Goal #2 Continue to meet at least 75% of calorie and protein needs via TF Anticipated Discharge Needs: Unable to determine at this time Follow-Up By: 12/06/18 Additional Comments Follow for TF tolerance
--- NOTE | 2018-12-03 12:32 | Progress Note ---
Assessment and Plan Cultures: Blood culture 10/01/2018 MRSA 2 of 4. Blood culture 10/03/2018 MRSA Blood culture 10/08/2018 no growth Blood culture 10/11/2018 no growth Blood culture 10/21/2018 no growth Blood culture 11/01/2018 Staph haemolyticus 2 of 4 bottles, resistent to methicillin and MRSA 1 of 4 bottles Blood culture 11/04/2018 no growth Assessment: 67 y/o male with history of HTN, CVA, Obstructive Uropathy, Contracture, Multiple Decubitus Ulcers, IA, DM, OA, Seizure Disorder, COPD, Dementia, Debility, BPH, well known to ID due to multiple admissions secondary to ducubitus ulcers infections and recurrent bacteremia, last time admitted on 10/02/2018 found with MRSA bacteremia jessica from decubitus ulcers mainly active large left trochanteric with bone exposure and sacral with bone exposure. Patient's infection was deemed incurable and hospice was recommended. Patient was discharged back to [place] on IV vancomycin 1 gm every 48 hours for total 6 weeks ending 11/12/2018 via neck tunneled cath. Patient was readmitted on due to AMS, worsening SOB. Patient is lethargic and unable to provide history. At the [place] he was found to have respiratory distress upon evaluation the morning of admission,pulse oximetry in the 80's: 1) Severe Sepsis: no fever x 24h. Etiology most likely Recurrent Staph bacteremia +/- CAUTI. 2) Staph haemolyticus and MRSA bacteremia with recent MRSA bacteremia: Blood culture 11/01/2018 Staph haemolyticus 2 of 4 bottles and MRSA 1 of 4. Source likely multiple decubitus ulcers or Neck IV central line. Patient is failing vancomycin. He has a tunneled neck cath. Recent TTE negative for vegetations. On daptomycin. 3) Recent septic shock due to polymicrobial bacteremia ESBL and carbapenem resistant E coli, MDR Proteus, Strep and E faecalis on 07/29/2018 probably from multiple infected decubitus ulcers and less likely UTI. Repeat blood cultures 07/31/2018 showed same MDR E coli 1 of 4 bottles then 08/06/2018 blood cultures showed no growth. Patient was treated with Vabomere for 14 days. 4) Multiple infected decubitus ulcers: His prognosis has been poor and hospice has been recommended several times in the past but family has declined. declined. His wounds are not curable considering his contractures, bed bound status and poor nutritional status. There was also suspicion of septic arthritis of left hip from decubitus ulcer. S/p debridement of multiple pressure ulcerations on 11/07/2018- stage 4 left hip pressure ulceration was surgically excisionally debrided of necrotic bone, stage 3 sacral, right ankle and left heel pressure ulcers were then surgically, excisionally debrided of necrotic SQ fat, stage 4 right heel, left lateral heel and right lateral leg ulcerations were surgically, excisionally debrided of necrotic SQ tissue, muscle and fascia. Dr Man recommended bilateral AKA, patient and daughter refused. Dr Man recommended Orthopedic consultation for possible left hip disarticulation as his left hip joint is crumbling and has profuse purulent drainage. 5) Recurrent UTI: patient's bright was removed home 2 weeks ago, a new bright placed here 6) Acute encephalopathy: multifactorial. 7) Acute resp failure: was on BIPAP now [place] O2. EF 30-35% pericaldial and pleural effusion. 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 He needs to be on contact isolation. This cannot be cured with antibiotics. Needs to be hospice continue daptomycin at discharge will do daptomycin 400 mg IV q day for 6 weeks until 12/16/2018 Grim prognosis. Will follow. Penny Bernardo MD Infectious Diseases Superintendent [employer] [facility] ([facility]) M [phone] Subjective Date of service: 12/03/18 Principal diagnosis: Severe Sepsis; Ac. Hypoxemic Resp failure; Anemia; Seizure; UTI; BPH Interval history: Patient reports no complaints no fever Objective - Exam Narrative Exam: General appearance: alert in NAD severely contracted Eyes: anicteric sclerae, moist conjunctivae; no lid-lag; PERRLA HENT: Atraumatic; oropharynx limited Neck: Trachea midline; supple, no thyromegaly or lymphadenopathy Lungs: CTA CV: RRR Abdomen: Soft, non-tender Extremities: marked legs contractions, multiple decubitus ulcers covered with dressings +left hip wound VAC Skin: multiple skin tears Psych: no agitated. Neuro: alert - Constitutional Vitals: Vital Signs Temp Pulse Resp BP Pulse Ox 97.9 F 94 H 20 151/84 100 12/03/18 07:33 12/03/18 10:09 12/03/18 07:33 12/03/18 10:09 12/03/18 07:33 Temperature -Last 24 Hours Temperature 97.9 F Temperature 97.4 F Temperature 98.6 F Temperature 98.5 F - Labs CBC & Chem 7: 12/03/18 05:07 12/03/18 05:07 Labs: Abnormal lab results 12/03/18 12/03/18 12/03/18 Range/Units 05:07 05:07 05:58 RBC 2.93 L (3.65-5.03) M/mm3 Hgb 8.2 L (11.8-15.2) gm/dl Hct 24.9 L (35.5-45.6) % RDW 17.0 H (13.2-15.2) % Plt Count 470 H (140-440) K/mm3 Lymph % (Auto) 9.3 L (13.4-35.0) % Harris % (Auto) 8.6 H (0.0-7.3) % Eos % (Auto) 5.4 H (0.0-4.3) % Lymph # 0.9 L (1.2-5.4) K/mm3 Eos # 0.5 H (0.0-0.4) K/mm3 Seg Neutrophils % 75.8 H (40.0-70.0) % BUN 30 H (9-20) mg/dL Creatinine 0.6 L (0.8-1.5) mg/dL Glucose 115 H (75-100) mg/dL POC Glucose 127 H (70-105) 12/03/18 Range/Units 11:49 RBC (3.65-5.03) M/mm3 Hgb (11.8-15.2) gm/dl Hct (35.5-45.6) % RDW (13.2-15.2) % Plt Count (140-440) K/mm3 Lymph % (Auto) (13.4-35.0) % Harris % (Auto) (0.0-7.3) % Eos % (Auto) (0.0-4.3) % Lymph # (1.2-5.4) K/mm3 Eos # (0.0-0.4) K/mm3 Seg Neutrophils % (40.0-70.0) % BUN (9-20) mg/dL Creatinine (0.8-1.5) mg/dL Glucose (75-100) mg/dL POC Glucose 138 H (70-105)
[2018-12-03] MEDS: NACL 0.9% IV SCH (12:36)
[2018-12-03] MEDS: DAPTOMYCIN IV SCH (12:36)
--- NOTE | 2018-12-03 16:30 | Progress Note ---
Assessment and Plan . Patient weak and contracted. Bed ridden. Patient is sleeping and on 2L O2 via nasal canula. No acute respiratory distress. O2 sat 99%. Patient is afebrile. Patient is on I/V daptomycin for MRSA. - Patient Problems (1) Respiratory failure Current Visit: Yes Status: Acute Qualifiers: Chronicity: acute Respiratory failure complication: hypoxia Qualified Code(s): J96.01 - Acute respiratory failure with hypoxia Plan to address problem: Continue O2 supplementation 2 L via nasal canula. Albuterol and Atrovent treatment q6h. Patient is on Diptomycine as per infectious diseases. Continue SQ Levonox. Recommend GI prophylexis. (2) Seizure Current Visit: Yes Status: Acute Plan to address problem: Management as per neurologist. (3) Sepsis Current Visit: Yes Status: Acute Plan to address problem: Patient is on Daptomycine as per infectious diseases. (4) UTI (urinary tract infection) Current Visit: Yes Status: Acute Qualifiers: Encounter type: initial encounter Plan to address problem: Patient is on Daptomycine as per infectious diseases. (5) ARF (acute renal failure) with tubular necrosis Current Visit: No Status: Acute Plan to address problem: Management as per Nephrology. Subjective Date of service: 12/03/18 Principal diagnosis: Severe Sepsis; Ac. Hypoxemic Resp failure; Anemia; Seizure; UTI; BPH Interval history: Patient weak and contracted. Bed ridden. Patient is sleeping and on 2L O2 via nasal canula. No acute respiratory distress. O2 sat 99%. Patient is afebrile. Patient is on I/V daptomycin for MRSA. Objective Vital Signs - 12hr 12/03/18 12/03/18 12/03/18 07:33 10:00 10:09 Temperature 97.9 F Pulse Rate 94 H 94 H 94 H Respiratory 20 Rate Blood Pressure 151/84 151/84 O2 Sat by Pulse 100 Oximetry 12/03/18 12:48 Temperature 98.9 F Pulse Rate 86 Respiratory 20 Rate Blood Pressure 140/70 O2 Sat by Pulse 99 Oximetry Constitutional: no acute distress, asleep Eyes: non-icteric ENT: oropharynx moist Neck: no lymphadenopathy, no JVD, other (mild stiffness / contracture) Effort: mildly labored Ascultation: Bilateral: diminished breath sounds, rhonchi Percussion: Bilateral: not dull Cardiovascular: regular rate and rhythm Gastrointestinal: normoactive bowel sounds, soft, non-tender, non-distended Integumentary: rash Extremities: no cyanosis, no edema, pulses normal, other (Patient has pressure ulcer at multiple areas, including sacral area.) Neurologic: non-focal exam, pupils equal and round, CN II-XII normal, other (+ contractures) Psychiatric: mood appropriate, affect normal CBC and BMP: 12/03/18 05:07 12/03/18 05:07 ABG, PT/INR, D-dimer: ABG POC ABG pH 7.494 (7.35-7.45) H 11/01/18 15:27 POC ABG pCO2 34.5 (35-45) L 11/01/18 15:27 POC ABG pO2 139 (80-105) H 11/01/18 15:27 POC ABG HCO3 26.5 (22-26 mml/L) 11/01/18 15:27 POC ABG Total CO2 28 (23-27mmol/L) 11/01/18 15:27 POC ABG O2 Sat 99 11/01/18 15:27 PT/INR, D-dimer PT 16.3 Sec. (12.2-14.9) H 11/01/18 14:50 INR 1.35 (0.87-1.13) H 11/01/18 14:50 Abnormal lab findings: Abnormal Labs 11/01/18 11/01/18 11/01/18 14:50 14:50 14:50 WBC 15.3 H RBC 2.76 L Hgb 7.9 L Hct 23.5 L MCH MCHC RDW 18.3 H Plt Count 567 H Lymph % (Auto) 6.5 L [place] % (Auto) 8.5 H Eos % (Auto) Lymph # 1.0 L [place] # 1.3 H Eos # Seg Neutrophils % 83.4 H Seg Neutrophils # 12.7 H PT 16.3 H INR 1.35 H POC ABG pH POC ABG pCO2 POC ABG pO2 VBG pH Sodium Potassium Chloride Carbon Dioxide BUN 49 H Creatinine Glucose 132 H POC Glucose Magnesium AST 90 H ALT 77 H Alkaline Phosphatase 350 H Total Creatine Kinase NT-Pro-B Natriuret Pep Albumin 1.6 L Urine WBC (Auto) Crossmatch 11/01/18 11/01/1811/01/19 14:50 14:50 15:27 WBC RBC Hgb Hct MCH MCHC RDW Plt Count Lymph % (Auto) [place] % (Auto) Eos % (Auto) Lymph # [place] # Eos # Seg Neutrophils % Seg Neutrophils # PT INR POC ABG pH 7.494 H POC ABG pCO2 34.5 L POC ABG pO2 139 H VBG pH 7.499 H Sodium Potassium Chloride Carbon Dioxide BUN Creatinine Glucose POC Glucose Magnesium AST ALT Alkaline Phosphatase Total Creatine Kinase NT-Pro-B Natriuret Pep 6776 H Albumin Urine WBC (Auto) Crossmatch 11/01/18 11/03/18 11/03/18 15:57 03:41 03:41 WBC 12.8 H RBC 2.55 L Hgb 6.9 L Hct 22.2 L MCH 27 L MCHC 31 L RDW 17.9 H Plt Count 519 H Lymph % (Auto) [place] % (Auto) Eos % (Auto) Lymph # [place] # Eos # Seg Neutrophils % Seg Neutrophils # PT INR POC ABG pH POC ABG pCO2 POC ABG pO2 VBG pH Sodium 147 H Potassium Chloride 110.3 H Carbon Dioxide BUN 55 H Creatinine Glucose POC Glucose Magnesium AST ALT Alkaline Phosphatase Total Creatine Kinase NT-Pro-B Natriuret Pep Albumin Urine WBC (Auto) > 182.0 H Crossmatch 11/03/18 11/04/18 11/04/18 12:51 05:12 05:12 WBC 11.5 H RBC 2.94 L Hgb 8.3 L Hct 25.3 L MCH MCHC RDW 17.3 H Plt Count 514 H Lymph % (Auto) [place] % (Auto) Eos % (Auto) Lymph # [place] # Eos # Seg Neutrophils % Seg Neutrophils # PT INR POC ABG pH POC ABG pCO2 POC ABG pO2 VBG pH Sodium 147 H Potassium Chloride 112.4 H Carbon Dioxide BUN 52 H Creatinine Glucose POC Glucose Magnesium AST ALT Alkaline Phosphatase Total Creatine Kinase NT-Pro-B Natriuret Pep Albumin Urine WBC (Auto) Crossmatch See Detail 11/05/18 11/05/18 11/06/18 04:50 04:50 05:42 WBC RBC 3.03 L 2.80 L Hgb 8.7 L 7.9 L Hct 26.6 L 24.7 L MCH MCHC RDW 17.1 H 17.0 H Plt Count 502 H 478 H Lymph % (Auto) 10.4 L [place] % (Auto) 8.6 H Eos % (Auto) 4.7 H Lymph # 1.0 L [place] # Eos # 0.5 H Seg Neutrophils % 75.6 H Seg Neutrophils # PT INR POC ABG pH POC ABG pCO2 POC ABG pO2 VBG pH Sodium 149 H Potassium Chloride 114.4 H Carbon Dioxide 21 L BUN 50 H Creatinine Glucose 108 H POC Glucose Magnesium AST ALT Alkaline Phosphatase Total Creatine Kinase NT-Pro-B Natriuret Pep Albumin Urine WBC (Auto) Crossmatch 11/06/18 11/11/18 11/12/18 05:42 18:54 00:22 WBC RBC Hgb Hct MCH MCHC RDW Plt Count Lymph % (Auto) [place] % (Auto) Eos % (Auto) Lymph # [place] # Eos # Seg Neutrophils % Seg Neutrophils # PT INR POC ABG pH POC ABG pCO2 POC ABG pO2 VBG pH Sodium 149 H Potassium Chloride 113.4 H Carbon Dioxide BUN 50 H Creatinine Glucose 121 H POC Glucose 114 H 123 H Magnesium AST ALT Alkaline Phosphatase Total Creatine Kinase NT-Pro-B Natriuret Pep Albumin Urine WBC (Auto) Crossmatch 11/12/18 11/12/18 11/13/18 06:49 11:35 06:34 WBC RBC Hgb Hct MCH MCHC RDW Plt Count Lymph % (Auto) [place] % (Auto) Eos % (Auto) Lymph # [place] # Eos # Seg Neutrophils % Seg Neutrophils # PT INR POC ABG pH POC ABG pCO2 POC ABG pO2 VBG pH Sodium Potassium Chloride Carbon Dioxide BUN Creatinine Glucose POC Glucose 129 H 123 H 128 H Magnesium AST ALT Alkaline Phosphatase Total Creatine Kinase NT-Pro-B Natriuret Pep Albumin Urine WBC (Auto) Crossmatch 11/13/18 11/13/18 11/13/18 09:26 09:26 15:13 WBC RBC 3.08 L Hgb 8.6 L Hct 27.3 L MCH MCHC 31 L RDW 18.3 H Plt Count 504 H Lymph % (Auto) 11.7 L [place] % (Auto) 7.5 H Eos % (Auto) 7.0 H Lymph # [place] # Eos # 0.7 H Seg Neutrophils % 72.9 H Seg Neutrophils # PT INR POC ABG pH POC ABG pCO2 POC ABG pO2 VBG pH Sodium 153 H Potassium 6.3 H* 5.8 H Chloride 122.3 H Carbon Dioxide 21 L BUN 38 H Creatinine Glucose 112 H POC Glucose Magnesium AST ALT Alkaline Phosphatase Total Creatine Kinase NT-Pro-B Natriuret Pep Albumin Urine WBC (Auto) Crossmatch 11/13/18 11/13/18 11/14/18 22:10 23:45 13:17 WBC RBC Hgb Hct MCH MCHC RDW Plt Count Lymph % (Auto) [place] % (Auto) Eos % (Auto) Lymph # [place] # Eos # Seg Neutrophils % Seg Neutrophils # PT INR POC ABG pH POC ABG pCO2 POC ABG pO2 VBG pH Sodium 155 H Potassium 5.3 H Chloride 122.3 H Carbon Dioxide BUN 35 H Creatinine Glucose 113 H POC Glucose 111 H 142 H Magnesium AST ALT Alkaline Phosphatase Total Creatine Kinase NT-Pro-B Natriuret Pep Albumin Urine WBC (Auto) Crossmatch 11/14/18 11/15/18 11/15/18 19:08 00:31 06:45 WBC RBC Hgb Hct MCH MCHC RDW Plt Count Lymph % (Auto) [place] % (Auto) Eos % (Auto) Lymph # [place] # Eos # Seg Neutrophils % Seg Neutrophils # PT INR POC ABG pH POC ABG pCO2 POC ABG pO2 VBG pH Sodium Potassium Chloride Carbon Dioxide BUN Creatinine Glucose POC Glucose 116 H 125 H 131 H Magnesium AST ALT Alkaline Phosphatase Total Creatine Kinase NT-Pro-B Natriuret Pep Albumin Urine WBC (Auto) Crossmatch 11/15/18 11/15/18 11/15/18 07:13 07:13 19:03 WBC 13.2 H RBC 2.81 L Hgb 7.8 L Hct 24.5 L MCH MCHC RDW 18.2 H Plt Count 454 H Lymph % (Auto) 9.0 L [place] % (Auto) 7.5 H Eos % (Auto) Lymph # [place] # 1.0 H Eos # 0.5 H Seg Neutrophils % 78.8 H Seg Neutrophils # 10.4 H PT INR POC ABG pH POC ABG pCO2 POC ABG pO2 VBG pH Sodium 149 H Potassium 5.2 H Chloride 117.2 H Carbon Dioxide BUN 38 H Creatinine Glucose 114 H POC Glucose 141 H Magnesium AST ALT Alkaline Phosphatase Total Creatine Kinase NT-Pro-B Natriuret Pep Albumin Urine WBC (Auto) Crossmatch 11/16/18 11/16/18 11/16/18 01:15 01:15 06:45 WBC RBC Hgb Hct MCH MCHC RDW Plt Count Lymph % (Auto) [place] % (Auto) Eos % (Auto) Lymph # [place] # Eos # Seg Neutrophils % Seg Neutrophils # PT INR POC ABG pH POC ABG pCO2 POC ABG pO2 VBG pH Sodium Potassium 5.3 H Chloride Carbon Dioxide BUN Creatinine Glucose POC Glucose 129 H Magnesium 2.60 H AST ALT Alkaline Phosphatase Total Creatine Kinase NT-Pro-B Natriuret Pep Albumin Urine WBC (Auto) Crossmatch 11/16/18 11/16/18 11/17/18 13:20 18:02 00:16 WBC RBC Hgb Hct MCH MCHC RDW Plt Count Lymph % (Auto) [place] % (Auto) Eos % (Auto) Lymph # [place] # Eos # Seg Neutrophils % Seg Neutrophils # PT INR POC ABG pH POC ABG pCO2 POC ABG pO2 VBG pH Sodium Potassium Chloride Carbon Dioxide BUN Creatinine Glucose POC Glucose 130 H 127 H 120 H Magnesium AST ALT Alkaline Phosphatase Total Creatine Kinase NT-Pro-B Natriuret Pep Albumin Urine WBC (Auto) Crossmatch 11/17/18 11/17/18 11/17/18 05:48 08:02 08:02 WBC RBC Hgb 7.5 L Hct 23.5 L MCH MCHC RDW Plt Count Lymph % (Auto) [place] % (Auto) Eos % (Auto) Lymph # [place] # Eos # Seg Neutrophils % Seg Neutrophils # PT INR POC ABG pH POC ABG pCO2 POC ABG pO2 VBG pH Sodium Potassium Chloride 110.1 H Carbon Dioxide 21 L BUN 38 H Creatinine Glucose 121 H POC Glucose 130 H Magnesium AST ALT Alkaline Phosphatase Total Creatine Kinase NT-Pro-B Natriuret Pep Albumin Urine WBC (Auto) Crossmatch 11/17/18 11/17/18 11/18/18 12:17 16:48 06:00 WBC RBC Hgb Hct MCH MCHC RDW Plt Count Lymph % (Auto) [place] % (Auto) Eos % (Auto) Lymph # [place] # Eos # Seg Neutrophils % Seg Neutrophils # PT INR POC ABG pH POC ABG pCO2 POC ABG pO2 VBG pH Sodium Potassium Chloride Carbon Dioxide BUN Creatinine Glucose POC Glucose 140 H 120 H 137 H Magnesium AST ALT Alkaline Phosphatase Total Creatine Kinase NT-Pro-B Natriuret Pep Albumin Urine WBC (Auto) Crossmatch 11/19/18 11/19/18 11/19/18 00:20 05:35 06:11 WBC RBC Hgb Hct MCH MCHC RDW Plt Count Lymph % (Auto) [place] % (Auto) Eos % (Auto) Lymph # [place] # Eos # Seg Neutrophils % Seg Neutrophils # PT INR POC ABG pH POC ABG pCO2 POC ABG pO2 VBG pH Sodium Potassium Chloride Carbon Dioxide BUN Creatinine Glucose POC Glucose 111 H 126 H Magnesium AST ALT Alkaline Phosphatase Total Creatine Kinase 53 L NT-Pro-B Natriuret Pep Albumin Urine WBC (Auto) Crossmatch 11/19/18 11/19/18 11/20/18 11:37 23:43 06:52 WBC RBC Hgb Hct MCH MCHC RDW Plt Count Lymph % (Auto) [place] % (Auto) Eos % (Auto) Lymph # [place] # Eos # Seg Neutrophils % Seg Neutrophils # PT INR POC ABG pH POC ABG pCO2 POC ABG pO2 VBG pH Sodium Potassium Chloride Carbon Dioxide BUN Creatinine Glucose POC Glucose 139 H 145 H 125 H Magnesium AST ALT Alkaline Phosphatase Total Creatine Kinase NT-Pro-B Natriuret Pep Albumin Urine WBC (Auto) Crossmatch 11/20/18 11/20/18 11/20/18 09:55 09:55 11:49 WBC RBC 3.04 L Hgb 8.4 L Hct 26.1 L MCH MCHC RDW 17.5 H Plt Count Lymph % (Auto) [place] % (Auto) Eos % (Auto) Lymph # [place] # Eos # Seg Neutrophils % Seg Neutrophils # PT INR POC ABG pH POC ABG pCO2 POC ABG pO2 VBG pH Sodium 149 H Potassium Chloride 114.5 H Carbon Dioxide 21 L BUN 35 H Creatinine Glucose 127 H POC Glucose 150 H Magnesium AST ALT Alkaline Phosphatase Total Creatine Kinase NT-Pro-B Natriuret Pep Albumin Urine WBC (Auto) Crossmatch 11/20/18 11/20/18 11/21/18 18:02 23:49 06:14 WBC RBC Hgb Hct MCH MCHC RDW Plt Count Lymph % (Auto) [place] % (Auto) Eos % (Auto) Lymph # [place] # Eos # Seg Neutrophils % Seg Neutrophils # PT INR POC ABG pH POC ABG pCO2 POC ABG pO2 VBG pH Sodium Potassium Chloride Carbon Dioxide BUN Creatinine Glucose POC Glucose 131 H 137 H 133 H Magnesium AST ALT Alkaline Phosphatase Total Creatine Kinase NT-Pro-B Natriuret Pep Albumin Urine WBC (Auto) Crossmatch 11/21/18 11/21/18 11/21/18 10:00 12:09 18:04 WBC RBC Hgb Hct MCH MCHC RDW Plt Count Lymph % (Auto) [place] % (Auto) Eos % (Auto) Lymph # [place] # Eos # Seg Neutrophils % Seg Neutrophils # PT INR POC ABG pH POC ABG pCO2 POC ABG pO2 VBG pH Sodium Potassium Chloride 110.6 H Carbon Dioxide BUN 31 H Creatinine Glucose 119 H POC Glucose 116 H 126 H Magnesium AST ALT Alkaline Phosphatase Total Creatine Kinase NT-Pro-B Natriuret Pep Albumin Urine WBC (Auto) Crossmatch 11/22/18 11/22/18 11/22/18 00:14 05:47 06:23 WBC RBC Hgb Hct MCH MCHC RDW Plt Count Lymph % (Auto) [place] % (Auto) Eos % (Auto) Lymph # [place] # Eos # Seg Neutrophils % Seg Neutrophils # PT INR POC ABG pH POC ABG pCO2 POC ABG pO2 VBG pH Sodium Potassium Chloride 107.6 H Carbon Dioxide BUN 32 H Creatinine 0.7 L Glucose 116 H POC Glucose 122 H 119 H Magnesium AST ALT Alkaline Phosphatase Total Creatine Kinase NT-Pro-B Natriuret Pep Albumin Urine WBC (Auto) Crossmatch 11/22/18 11/22/18 11/22/18 08:40 12:19 17:39 WBC RBC Hgb Hct MCH MCHC RDW Plt Count Lymph % (Auto) [place] % (Auto) Eos % (Auto) Lymph # [place] # Eos # Seg Neutrophils % Seg Neutrophils # PT INR POC ABG pH POC ABG pCO2 POC ABG pO2 VBG pH Sodium Potassium Chloride Carbon Dioxide BUN Creatinine Glucose POC Glucose 150 H 111 H 108 H Magnesium AST ALT Alkaline Phosphatase Total Creatine Kinase NT-Pro-B Natriuret Pep Albumin Urine WBC (Auto) Crossmatch 11/23/18 11/23/18 11/23/18 00:36 05:37 05:56 WBC RBC Hgb Hct MCH MCHC RDW Plt Count Lymph % (Auto) [place] % (Auto) Eos % (Auto) Lymph # [place] # Eos # Seg Neutrophils % Seg Neutrophils # PT INR POC ABG pH POC ABG pCO2 POC ABG pO2 VBG pH Sodium 136 L Potassium Chloride Carbon Dioxide BUN 30 H Creatinine 0.7 L Glucose 103 H POC Glucose 125 H 122 H Magnesium 2.50 H AST ALT Alkaline Phosphatase Total Creatine Kinase NT-Pro-B Natriuret Pep Albumin Urine WBC (Auto) Crossmatch 11/23/18 11/23/18 11/23/18 11:56 17:39 23:40 WBC RBC Hgb Hct MCH MCHC RDW Plt Count Lymph % (Auto) [place] % (Auto) Eos % (Auto) Lymph # [place] # Eos # Seg Neutrophils % Seg Neutrophils # PT INR POC ABG pH POC ABG pCO2 POC ABG pO2 VBG pH Sodium Potassium Chloride Carbon Dioxide BUN Creatinine Glucose POC Glucose 121 H 113 H 117 H Magnesium AST ALT Alkaline Phosphatase Total Creatine Kinase NT-Pro-B Natriuret Pep Albumin Urine WBC (Auto) Crossmatch 11/24/18 11/24/18 11/24/18 05:13 12:00 18:13 WBC RBC Hgb Hct MCH MCHC RDW Plt Count Lymph % (Auto) [place] % (Auto) Eos % (Auto) Lymph # [place] # Eos # Seg Neutrophils % Seg Neutrophils # PT INR POC ABG pH POC ABG pCO2 POC ABG pO2 VBG pH Sodium Potassium Chloride Carbon Dioxide BUN Creatinine Glucose POC Glucose 143 H 123 H 124 H Magnesium AST ALT Alkaline Phosphatase Total Creatine Kinase NT-Pro-B Natriuret Pep Albumin Urine WBC (Auto) Crossmatch 11/24/18 11/25/18 11/25/18 23:34 05:25 05:25 WBC RBC 2.48 L Hgb 6.8 L Hct 21.2 L MCH MCHC RDW 17.7 H Plt Count Lymph % (Auto) [place] % (Auto) Eos % (Auto) Lymph # [place] # Eos # Seg Neutrophils % Seg Neutrophils # PT INR POC ABG pH POC ABG pCO2 POC ABG pO2 VBG pH Sodium Potassium Chloride 108.8 H Carbon Dioxide BUN 30 H Creatinine 0.7 L Glucose 112 H POC Glucose 115 H Magnesium AST ALT Alkaline Phosphatase Total Creatine Kinase NT-Pro-B Natriuret Pep Albumin Urine WBC (Auto) Crossmatch 11/25/18 11/25/18 11/25/18 06:46 11:15 11:28 WBC RBC Hgb 7.4 L Hct 23.0 L MCH MCHC RDW Plt Count Lymph % (Auto) [place] % (Auto) Eos % (Auto) Lymph # [place] # Eos # Seg Neutrophils % Seg Neutrophils # PT INR POC ABG pH POC ABG pCO2 POC ABG pO2 VBG pH Sodium Potassium Chloride Carbon Dioxide BUN Creatinine Glucose POC Glucose 133 H 127 H Magnesium AST ALT Alkaline Phosphatase Total Creatine Kinase NT-Pro-B Natriuret Pep Albumin Urine WBC (Auto) Crossmatch 11/25/18 11/25/18 11/25/18 15:28 17:32 23:45 WBC RBC Hgb Hct MCH MCHC RDW Plt Count Lymph % (Auto) [place] % (Auto) Eos % (Auto) Lymph # [place] # Eos # Seg Neutrophils % Seg Neutrophils # PT INR POC ABG pH POC ABG pCO2 POC ABG pO2 VBG pH Sodium Potassium Chloride Carbon Dioxide BUN Creatinine Glucose POC Glucose 115 H 130 H Magnesium AST ALT Alkaline Phosphatase Total Creatine Kinase NT-Pro-B Natriuret Pep Albumin Urine WBC (Auto) Crossmatch See Detail 11/26/18 11/26/18 11/26/18 06:13 06:20 06:20 WBC RBC 2.76 L Hgb 7.7 L Hct 23.4 L MCH MCHC RDW 17.5 H Plt Count Lymph % (Auto) [place] % (Auto) Eos % (Auto) Lymph # [place] # Eos # Seg Neutrophils % Seg Neutrophils # PT INR POC ABG pH POC ABG pCO2 POC ABG pO2 VBG pH Sodium Potassium Chloride 109.9 H Carbon Dioxide BUN 30 H Creatinine 0.6 L Glucose 121 H POC Glucose 129 H Magnesium AST ALT Alkaline Phosphatase Total Creatine Kinase NT-Pro-B Natriuret Pep Albumin Urine WBC (Auto) Crossmatch 11/26/18 11/26/18 11/27/18 12:06 16:35 06:04 WBC RBC Hgb Hct MCH MCHC RDW Plt Count Lymph % (Auto) [place] % (Auto) Eos % (Auto) Lymph # [place] # Eos # Seg Neutrophils % Seg Neutrophils # PT INR POC ABG pH POC ABG pCO2 POC ABG pO2 VBG pH Sodium Potassium Chloride Carbon Dioxide BUN Creatinine Glucose POC Glucose 139 H 107 H 126 H Magnesium AST ALT Alkaline Phosphatase Total Creatine Kinase NT-Pro-B Natriuret Pep Albumin Urine WBC (Auto) Crossmatch 11/27/18 11/27/18 11/28/18 13:14 17:47 07:03 WBC RBC Hgb Hct MCH MCHC RDW Plt Count Lymph % (Auto) [place] % (Auto) Eos % (Auto) Lymph # [place] # Eos # Seg Neutrophils % Seg Neutrophils # PT INR POC ABG pH POC ABG pCO2 POC ABG pO2 VBG pH Sodium Potassium Chloride Carbon Dioxide BUN Creatinine Glucose POC Glucose 130 H 115 H 118 H Magnesium AST ALT Alkaline Phosphatase Total Creatine Kinase NT-Pro-B Natriuret Pep Albumin Urine WBC (Auto) Crossmatch 11/28/18 11/29/18 11/29/18 11:38 00:35 04:56 WBC RBC Hgb Hct MCH MCHC RDW Plt Count Lymph % (Auto) [place] % (Auto) Eos % (Auto) Lymph # [place] # Eos # Seg Neutrophils % Seg Neutrophils # PT INR POC ABG pH POC ABG pCO2 POC ABG pO2 VBG pH Sodium Potassium Chloride Carbon Dioxide BUN Creatinine Glucose POC Glucose 126 H 107 H Magnesium AST ALT Alkaline Phosphatase Total Creatine Kinase 50 L NT-Pro-B Natriuret Pep Albumin Urine WBC (Auto) Crossmatch 11/29/18 11/29/18 11/29/18 05:49 11:46 18:17 WBC RBC Hgb Hct MCH MCHC RDW Plt Count Lymph % (Auto) [place] % (Auto) Eos % (Auto) Lymph # [place] # Eos # Seg Neutrophils % Seg Neutrophils # PT INR POC ABG pH POC ABG pCO2 POC ABG pO2 VBG pH Sodium Potassium Chloride Carbon Dioxide BUN Creatinine Glucose POC Glucose 128 H 140 H 115 H Magnesium AST ALT Alkaline Phosphatase Total Creatine Kinase NT-Pro-B Natriuret Pep Albumin Urine WBC (Auto) Crossmatch 11/30/18 11/30/18 11/30/18 00:00 03:30 03:30 WBC RBC 2.97 L Hgb 8.1 L Hct 25.5 L MCH 27 L MCHC RDW 17.7 H Plt Count Lymph % (Auto) 9.2 L [place] % (Auto) 10.0 H Eos % (Auto) 4.6 H Lymph # 1.0 L [place] # 1.1 H Eos # 0.5 H Seg Neutrophils % 75.6 H Seg Neutrophils # 8.4 H PT INR POC ABG pH POC ABG pCO2 POC ABG pO2 VBG pH Sodium Potassium Chloride Carbon Dioxide BUN 31 H Creatinine 0.7 L Glucose POC Glucose 120 H Magnesium AST ALT Alkaline Phosphatase Total Creatine Kinase NT-Pro-B Natriuret Pep Albumin Urine WBC (Auto) Crossmatch 11/30/18 11/30/18 11/30/18 06:54 11:45 16:59 WBC RBC Hgb Hct MCH MCHC RDW Plt Count Lymph % (Auto) [place] % (Auto) Eos % (Auto) Lymph # [place] # Eos # Seg Neutrophils % Seg Neutrophils # PT INR POC ABG pH POC ABG pCO2 POC ABG pO2 VBG pH Sodium Potassium Chloride Carbon Dioxide BUN Creatinine Glucose POC Glucose 120 H 123 H 111 H Magnesium AST ALT Alkaline Phosphatase Total Creatine Kinase NT-Pro-B Natriuret Pep Albumin Urine WBC (Auto) Crossmatch 12/01/18 12/01/18 12/01/18 00:20 05:58 11:33 WBC RBC Hgb Hct MCH MCHC RDW Plt Count Lymph % (Auto) [place] % (Auto) Eos % (Auto) Lymph # [place] # Eos # Seg Neutrophils % Seg Neutrophils # PT INR POC ABG pH POC ABG pCO2 POC ABG pO2 VBG pH Sodium Potassium Chloride Carbon Dioxide BUN Creatinine Glucose POC Glucose 113 H 127 H 138 H Magnesium AST ALT Alkaline Phosphatase Total Creatine Kinase NT-Pro-B Natriuret Pep Albumin Urine WBC (Auto) Crossmatch 12/02/18 12/03/18 12/03/18 00:33 05:07 05:07 WBC RBC 2.93 L Hgb 8.2 L Hct 24.9 L MCH MCHC RDW 17.0 H Plt Count 470 H Lymph % (Auto) 9.3 L [place] % (Auto) 8.6 H Eos % (Auto) 5.4 H Lymph # 0.9 L [place] # Eos # 0.5 H Seg Neutrophils % 75.8 H Seg Neutrophils # PT INR POC ABG pH POC ABG pCO2 POC ABG pO2 VBG pH Sodium Potassium Chloride Carbon Dioxide BUN 30 H Creatinine 0.6 L Glucose 115 H POC Glucose 110 H Magnesium AST ALT Alkaline Phosphatase Total Creatine Kinase NT-Pro-B Natriuret Pep Albumin Urine WBC (Auto) Crossmatch 12/03/18 12/03/18 05:58 11:49 WBC RBC Hgb Hct MCH MCHC RDW Plt Count Lymph % (Auto) [place] % (Auto) Eos % (Auto) Lymph # [place] # Eos # Seg Neutrophils % Seg Neutrophils # PT INR POC ABG pH POC ABG pCO2 POC ABG pO2 VBG pH Sodium Potassium Chloride Carbon Dioxide BUN Creatinine Glucose POC Glucose 127 H 138 H Magnesium AST ALT Alkaline Phosphatase Total Creatine Kinase NT-Pro-B Natriuret Pep Albumin Urine WBC (Auto) Crossmatch Allied health notes reviewed: nursing
[2018-12-03] MEDS: CATAPRES-TTS PATCH TD SCH (18:33)
[2018-12-04] MEDS: DUONEB *Not for PRN Use IH SCH ×2 (07:38→21:04)
[2018-12-04] MEDS: SODIUM CHLORIDE FLUSH SYRINGE 10 ML IV SCH (10:59)
[2018-12-04] MEDS: NORCO 5/325 PO PRN ×2 (11:04→17:26)
[2018-12-04] MEDS: LOVENOX SUB-Q SCH (11:05)
[2018-12-04] MEDS: KEPPRA FEEDTUBE SCH ×2 (11:06→22:10)
[2018-12-04] MEDS: ZINC SULFATE PO SCH (11:06)
[2018-12-04] MEDS: VITAMIN C FEEDTUBE SCH ×2 (11:06→22:10)
[2018-12-04] MEDS: APRESOLINE PO SCH ×2 (11:06→22:10)
[2018-12-04] MEDS: COREG PO SCH (11:07)
[2018-12-04] MEDS: DAPTOMYCIN IV SCH (11:08)
[2018-12-04] MEDS: NACL 0.9% IV SCH (11:08)
[2018-12-04] MEDS: Centrum Liq FEEDTUBE SCH (11:08)
--- NOTE | 2018-12-04 11:08 | Progress Note ---
Assessment and Plan Assessment and plan: 67 YO Male [facility] Resident as [facility] with HTN, CVA, Obstructive Uropathy, Diastolic CHF, Contracture, Sacral Decubitus Ulcers, DE, DM, OA, Seizure Disorder, COPD, Dementia, BPH presents to ED for evaluation. Pt is stuporous and unable to provide history. Pt history taken from ED Staff, EMS, and SNF Staff. As per staff, the patient was found to have respiratory distress upon evaluation this morning. Pt found to have pulse oximetry in the 80's. EMS notified and patient subsequently transported to [facility] for further care and evaluation. Pt seen and evaluated in ED and found to have UTI, Sepsis, Encephalopathy as well as Acute Hypoxemic Respiratory Failure. Pt initiated on NIPPV in ED with improvement in symptoms. Pt admitted to IMCU and initiated on Sepsis protocol. Prior admission on 10/01/18 reviewed. Extensive discussion with family about patients poor prognosis surgery consult appreciated ID following, Pulmonary status improved Continue isolation care Chaudhary placed by Urology please do not remove Sepsis Continue IMCU care, place on isolation, ID consult noted, patient is on IV daptomycin blood cultures with gram positive Multiple hx of MRSA, Multi organ Monitor uop q shift. ID recumbent because Synthroid Respiratory failure Supplemental oxygen, nebulizer therapy,pulse oximetry, Chest X ray, NIPPV UNABLE TO GET v/q scan Pulmonary following the patient Anemia of chronic disease Transfuse one unit PRBC hemoglobin is stable Seizure Continue current therapy, seizure precautions. UTI (urinary tract infection) IV antibiotic therapy, CBC, CMP, Urinalysis. BPH Continue Chaudhary catherter Dementia IVF resuscitation therapy, supportive care, treat sepsis. sacral pressure ulcer -infected. POA WOUND CARE CONSULT. CONTINUE ABX. Debridement done by Dr Man Amputation recommended and the daughter refused Orthopedics consulted for hip disarticulation but said transfer if needed The wound involved the bone and orthopedics consulted. DVT prophylaxis Current Visit: Yes Status: Acute Plan to address problem: SCD to BLE while in bed, Prophylactic lovenox POOR PROGNOSIS Disposition; Pending placement to SNF. History Interval history: Patient was seen and evaluated this morning, patient didn't have complaints. Hospitalist Physical - Physical exam Narrative exam: Not in cardiopulmonary distress. The patient appeared well nourished and normally developed. Vital signs as documented. Head exam is unremarkable. No scleral icterus . Neck is without jugular venous distension, thyromegaly, or carotid bruits. Lungs are clear to auscultation. Cardiac exam reveals regular rate and Rhythm. First and second heart sounds normal. No murmurs, rubs or gallops. Abdominal exam reveals normal bowel sounds, no masses, no organomegaly and no aortic enlargement. Extremities contracted extremities. [employer]: Alert and oriented. Skin; multiple decubitus ulcers, including the sacrum and the heel. - Constitutional Vitals: Temp Pulse Resp BP Pulse Ox 98.2 F 82 20 145/74 97 12/04/18 07:29 12/04/18 08:07 12/04/18 07:39 12/04/18 07:29 12/04/18 08:07 General appearance: Present: no acute distress Results - Labs CBC & Chem 7: 12/03/18 05:07 12/03/18 05:07 Labs: Laboratory Last Values WBC 9.4 K/mm3 (4.5-11.0) 12/03/18 05:07 RBC 2.93 M/mm3 (3.65-5.03) L 12/03/18 05:07 Hgb 8.2 gm/dl (11.8-15.2) L 12/03/18 05:07 Hct 24.9 % (35.5-45.6) L 12/03/18 05:07 MCV 85 fl (84-94) 12/03/18 05:07 MCH 28 pg (28-32) 12/03/18 05:07 MCHC 33 % (32-34) 12/03/18 05:07 RDW 17.0 % (13.2-15.2) H 12/03/18 05:07 Plt Count 470 K/mm3 (140-440) H 12/03/18 05:07 Lymph % (Auto) 9.3 % (13.4-35.0) L 12/03/18 05:07 [place] % (Auto) 8.6 % (0.0-7.3) H 12/03/18 05:07 Eos % (Auto) 5.4 % (0.0-4.3) H 12/03/18 05:07 Baso % (Auto) 0.9 % (0.0-1.8) 12/03/18 05:07 Lymph # 0.9 K/mm3 (1.2-5.4) L 12/03/18 05:07 [place] # 0.8 K/mm3 (0.0-0.8) 12/03/18 05:07 Eos # 0.5 K/mm3 (0.0-0.4) H 12/03/18 05:07 Baso # 0.1 K/mm3 (0.0-0.1) 12/03/18 05:07 Seg Neutrophils % 75.8 % (40.0-70.0) H 12/03/18 05:07 Seg Neutrophils # 7.1 K/mm3 (1.8-7.7) 12/03/18 05:07 PT 16.3 Sec. (12.2-14.9) H 11/01/18 14:50 INR 1.35 (0.87-1.13) H 11/01/18 14:50 POC ABG pH 7.494 (7.35-7.45) H 11/01/18 15:27 POC ABG pCO2 34.5 (35-45) L 11/01/18 15:27 POC ABG pO2 139 (80-105) H 11/01/18 15:27 POC ABG HCO3 26.5 (22-26 mml/L) 11/01/18 15:27 POC ABG Total CO2 28 (23-27mmol/L) 11/01/18 15:27 POC ABG O2 Sat 99 11/01/18 15:27 POC ABG Base Excess 3 ((-2) - (+3)mmol/L) 11/01/18 15:27 VBG pH 7.499 (7.320-7.420) H 11/01/18 14:50 50 % 11/01/18 15:27 Sodium 140 mmol/L (137-145) 12/03/18 05:07 Potassium 3.7 mmol/L (3.6-5.0) 12/03/18 05:07 Chloride 106.5 mmol/L (98-107) 12/03/18 05:07 Carbon Dioxide 23 mmol/L (22-30) 12/03/18 05:07 14 mmol/L 12/03/18 05:07 BUN 30 mg/dL (9-20) H 12/03/18 05:07 0.6 mg/dL (0.8-1.5) L 12/03/18 05:07 Estimated GFR > 60 ml/min 12/03/18 05:07 50 % 12/03/18 05:07 Glucose 115 mg/dL (75-100) H 12/03/18 05:07 POC Glucose 99 (70-105) 12/04/18 05:57 Lactic Acid 1.80 mmol/L (0.7-2.0) 11/01/18 14:50 Calcium 9.5 mg/dL (8.4-10.2) 12/03/18 05:07 Phosphorus 2.90 mg/dL (2.5-4.5) 11/22/18 09:43 Magnesium 2.50 mg/dL (1.7-2.3) H 11/23/18 05:56 0.30 mg/dL (0.1-1.2) 11/01/18 14:50 AST 90 units/L (5-40) H 11/01/18 14:50 ALT 77 units/L (7-56) H 11/01/18 14:50 350 units/L (35-129) H 11/01/18 14:50 72 units/L (55-170) 11/30/18 00:31 NT-Pro-B Natriuret Pep 6776 pg/mL (0-900) H 11/01/18 14:50 7.9 g/dL (6.3-8.2) 11/01/18 14:50 1.6 g/dL (3.9-5) L 11/01/18 14:50 0.3 % 11/01/18 14:50 14 units/L (13-60) 11/25/18 15:07 Yellow (Yellow) 11/01/18 15:57 Turbid (Clear) 11/01/18 15:57 6.0 (5.0-7.0) 11/01/18 15:57 Ur Specific [place] 1.016 (1.003-1.030) 11/01/18 15:57 100 mg/dl mg/dL (Negative) 11/01/18 15:57 Neg mg/dL (Negative) 11/01/18 15:57 Neg mg/dL (Negative) 11/01/18 15:57 Neg (Negative) 11/01/18 15:57 Neg (Negative) 11/01/18 15:57 Neg (Negative) 11/01/18 15:57 < 2.0 mg/dL (<2.0) 11/01/18 15:57 Ur Leukocyte Esterase Mod (Negative) 11/01/18 15:57 > 182.0 /HPF (0.0-6.0) H 11/01/18 15:57 40.0 /HPF (0.0-6.0) 11/01/18 15:57 U Epithel Cells (Auto) 8.0 /HPF (0-13.0) 11/01/18 15:57 3+ /HPF 11/01/18 15:57 3+ /HPF 11/01/18 15:57 Random Vancomycin 13.9 ug/mL (0-40.0) 11/02/18 05:05 Blood Type O POSITIVE 11/25/18 15:28 Antibody Screen Negative 11/25/18 15:28 Crossmatch See Detail 11/25/18 15:28 Active Medications - Current Medications Current Medications: Generic Name Dose Route Start Last Admin Trade Name Freq PRN Reason Stop Dose Admin Acetaminophen/Hydrocodone Bitart 1 each 11/15/18 04:51 11/22/18 21:33 [place] 5/325 PO 1 each Q4H PRN Administration Pain, Moderate (4-6) Albuterol 2.5 mg 11/01/18 17:15 Proventil IH Q3HRT PRN Shortness Of Breath Albuterol/Ipratropium 1 ampul 11/28/18 20:00 12/04/18 07:38 Duoneb *Not For Prn Use* IH 1 ampul BIDRT NORA Administration Lipase/Protease/Amylase 1 each 11/03/18 17:12 12/02/18 08:40 Pancreazadela Moore 10,500 Unit FEEDTUBE 1 each PRN PRN Administration For Clogged Feeding Tube Ascorbic Acid 500 mg 11/01/18 22:00 12/03/18 22:01 Vitamin C FEEDTUBE 500 mg BID NORA Administration Atorvastatin Calcium 40 mg 11/01/18 22:00 12/03/18 22:00 Lipitor FEEDTUBE 40 mg QHS NORA Administration Carvedilol 6.25 mg 11/08/18 13:00 12/03/18 22:00 Coreg PO 6.25 mg BID NORA Administration Clonidine HCl 0.2 mg 11/05/18 17:18 12/03/18 18:33 Catapres-Tts Patch TD 0.2 mg Tu NORA Administration Enoxaparin Sodium 40 mg 11/02/18 10:00 12/03/18 10:08 Lovenox SUB-Q 40 mg QDAY@1000 NORA Administration Hydralazine HCl 10 mg 11/25/18 22:00 12/03/18 22:00 Apresoline PO 10 mg Q12HR NORA Administration Daptomycin 400 mg/ Sodium 100 mls @ 200 mls/hr 11/25/18 11:00 12/03/18 12:36 Chloride IV 12/16/18 11:29 200 mls/hr Q24H NORA Administration Protocol Levetiracetam 500 mg 11/01/18 22:00 12/03/18 22:00 Keppra FEEDTUBE 500 mg BID NORA Administration Morphine Sulfate 2 mg 11/01/18 17:15 11/30/18 21:15 Morphine IV 2 mg Q4H PRN Administration Pain, Moderate (4-6) Multivitamins 5 ml 11/02/18 10:00 12/03/18 10:09 Centrum Liq FEEDTUBE 5 ml QDAY NORA Administration Simple Syrup 15 ml 11/03/18 17:12 11/16/18 13:40 Simple Syrup FEEDTUBE 15 ml PRN PRN Administration Hypoglycemia Simple Syrup 30 ml 11/03/18 17:12 Simple Syrup FEEDTUBE PRN PRN Hypoglycemia Sodium Bicarbonate 325 mg 11/03/18 17:12 12/02/18 08:40 Sodium Bicarbonate FEEDTUBE 325 mg PRN PRN Administration For Clogged Feeding Tube Sodium Chloride 10 ml 11/01/18 22:00 12/04/18 10:59 Sodium Chloride Flush Syringe 10 Ml IV 10 ml BID NORA Administration Sodium Chloride 10 ml 11/01/18 17:15 11/23/18 04:05 Sodium Chloride Flush Syringe 10 Ml IV 10 ml PRN PRN Administration LINE FLUSH Zinc Sulfate 220 mg 11/02/18 10:00 12/03/18 10:08 Zinc Sulfate PO 220 mg DAILY NOAR Administration Nutrition/Malnutrition Assess - Dietary Evaluation Nutrition/Malnutrition Findings: Nutrition Notes Start: 11/04/18 16:00 Freq: Status: Active Protocol: Document 11/29/18 15:47 RM (Rec: 11/29/18 15:48 RM [id number]) Nutrition Notes Initial or Follow up Reassessment Current Diagnosis COPD,Diabetes,Sepsis, Hypertension,Heart Failure, Stroke Other Pertinent Diagnosis Sacral PUs, UTI, Dementia Current Diet Nepro at 40 ml/hr Labs/Tests No recent labs Pertinent Medications Reviewed Height 5 ft 8 in Weight 62.4 kg [place] Body Weight (kg) 70.00 BMI 20.9 Subjective/Other Information Observed Nepro infusing at goal rate. Percent of energy/protein needs met: 100%/100% Burn Absent Trauma Absent #1 Nutrition Diagnosis Inadequate oral intake Diagnosis Progress(for reassessment Continues documentation) Is patient on ventilator? No Is Patient Ambulatory and/or Out of Bed No REE-([facility]-confined to bed) 2592.080 Calculation [facility] Additional Notes Protein Needs: 76-95g (1.2-1. 5g/kg) Fluid Needs: 1 ml/kcal Nutrition Intervention Nutrition Support: Nepro 1.8 at 40 ml/hr. Water flush of 200 mls q 4 hrs . Kcal 1,728 Protein (gm) 78 Fluid (mL) 698 Goal #1 TF tolerance Goal #2 Continue to meet at least 75% of calorie and protein needs via TF Anticipated Discharge Needs: Unable to determine at this time Follow-Up By: 12/06/18 Additional Comments Follow for TF tolerance
--- NOTE | 2018-12-04 11:11 | Progress Note ---
Assessment and Plan Patient undergoing wound cleaning from wound care. Patient is weak and contracted and has multiple pressure wounds. Patient is awake and on 2L O2 via nasal canula. No acute respiratory distress. O2 sat 97%. Patient is afebrile. Patient is on I/V daptomycin for MRSA. - Patient Problems (1) Respiratory failure Current Visit: Yes Status: Acute Qualifiers: Chronicity: acute Respiratory failure complication: hypoxia Qualified Code(s): J96.01 - Acute respiratory failure with hypoxia Plan to address problem: Continue O2 supplementation 2 L via nasal canula. Albuterol and Atrovent treatment q6h. Patient is on Diptomycine as per infectious diseases. Continue SQ Levonox. Recommend GI prophylexis. (2) Seizure Current Visit: Yes Status: Acute Plan to address problem: Management as per neurologist. (3) Sepsis Current Visit: Yes Status: Acute Plan to address problem: Patient is on Daptomycine as per infectious diseases. (4) UTI (urinary tract infection) Current Visit: Yes Status: Acute Qualifiers: Encounter type: initial encounter Plan to address problem: Patient is on Daptomycine as per infectious diseases. (5) ARF (acute renal failure) with tubular necrosis Current Visit: No Status: Acute Plan to address problem: Management as per Nephrology. Subjective Date of service: 12/04/18 Principal diagnosis: Severe Sepsis; Ac. Hypoxemic Resp failure; Anemia; Seizure; UTI; BPH Interval history: Patient undergoing wound cleaning from wound care. Patient is weak and contracted and has multiple pressure wounds. Patient is awake and on 2L O2 via nasal canula. No acute respiratory distress. O2 sat 97%. Patient is afebrile. Patient is on I/V daptomycin for MRSA. Objective Vital Signs - 12hr 12/04/18 12/04/18 12/04/18 02:12 07:29 07:39 Temperature 98.5 F 98.2 F Pulse Rate 81 82 Pulse Rate [ 97 H Anterior Bilateral Throughout] Pulse Rate [ Right Radial] Respiratory 20 18 Rate Respiratory 20 Rate [Anterior Bilateral Throughout] Blood Pressure 139/69 145/74 O2 Sat by Pulse 96 99 Oximetry 12/04/18 12/04/18 12/04/18 07:40 08:07 11:06 Temperature Pulse Rate 82 Pulse Rate [ Anterior Bilateral Throughout] Pulse Rate [ 82 Right Radial] Respiratory Rate Respiratory Rate [Anterior Bilateral Throughout] Blood Pressure 145/74 O2 Sat by Pulse 97 97 Oximetry 12/04/18 11:07 Temperature Pulse Rate 82 Pulse Rate [ Anterior Bilateral Throughout] Pulse Rate [ Right Radial] Respiratory Rate Respiratory Rate [Anterior Bilateral Throughout] Blood Pressure 145/74 O2 Sat by Pulse Oximetry Constitutional: no acute distress, alert Eyes: non-icteric ENT: oropharynx moist Neck: no lymphadenopathy, no JVD, other (mild stiffness / contracture) Effort: mildly labored Ascultation: Bilateral: diminished breath sounds, rhonchi Percussion: Bilateral: not dull Cardiovascular: regular rate and rhythm Gastrointestinal: normoactive bowel sounds, soft, non-tender, non-distended Integumentary: rash Extremities: no cyanosis, no edema, pulses normal, other (Patient has pressure ulcer at multiple areas, including sacral area.) Neurologic: non-focal exam, pupils equal and round, CN II-XII normal, other (+ contractures) Psychiatric: mood appropriate, affect normal CBC and BMP: 12/03/18 05:07 12/03/18 05:07 ABG, PT/INR, D-dimer: ABG POC ABG pH 7.494 (7.35-7.45) H 11/01/18 15:27 POC ABG pCO2 34.5 (35-45) L 11/01/18 15:27 POC ABG pO2 139 (80-105) H 11/01/18 15:27 POC ABG HCO3 26.5 (22-26 mml/L) 11/01/18 15:27 POC ABG Total CO2 28 (23-27mmol/L) 11/01/18 15:27 POC ABG O2 Sat 99 11/01/18 15:27 PT/INR, D-dimer PT 16.3 Sec. (12.2-14.9) H 11/01/18 14:50 INR 1.35 (0.87-1.13) H 11/01/18 14:50 Abnormal lab findings: Abnormal Labs 11/01/18 11/01/18 11/01/18 14:50 14:50 14:50 WBC 15.3 H RBC 2.76 L Hgb 7.9 L Hct 23.5 L MCH MCHC RDW 18.3 H Plt Count 567 H Lymph % (Auto) 6.5 L [place] % (Auto) 8.5 H Eos % (Auto) Lymph # 1.0 L [place] # 1.3 H Eos # Seg Neutrophils % 83.4 H Seg Neutrophils # 12.7 H PT 16.3 H INR 1.35 H POC ABG pH POC ABG pCO2 POC ABG pO2 VBG pH Sodium Potassium Chloride Carbon Dioxide BUN 49 H Creatinine Glucose 132 H POC Glucose Magnesium AST 90 H ALT 77 H Alkaline Phosphatase 350 H Total Creatine Kinase NT-Pro-B Natriuret Pep Albumin 1.6 L Urine WBC (Auto) Crossmatch 11/01/18 11/01/18 11/01/18 14:50 14:50 15:27 WBC RBC Hgb Hct MCH MCHC RDW Plt Count Lymph % (Auto) [place] % (Auto) Eos % (Auto) Lymph # [place] # Eos # Seg Neutrophils % Seg Neutrophils # PT INR POC ABG pH 7.494 H POC ABG pCO2 34.5 L POC ABG pO2 139 H VBG pH 7.499 H Sodium Potassium Chloride Carbon Dioxide BUN Creatinine Glucose POC Glucose Magnesium AST ALT Alkaline Phosphatase Total Creatine Kinase NT-Pro-B Natriuret Pep 6776 H Albumin Urine WBC (Auto) Crossmatch 11/01/18 11/03/18 11/03/18 15:57 03:41 03:41 WBC 12.8 H RBC 2.55 L Hgb 6.9 L Hct 22.2 L MCH 27 L MCHC 31 L RDW 17.9 H Plt Count 519 H Lymph % (Auto) [place] % (Auto) Eos % (Auto) Lymph # [place] # Eos # Seg Neutrophils % Seg Neutrophils # PT INR POC ABG pH POC ABG pCO2 POC ABG pO2 VBG pH Sodium 147 H Potassium Chloride 110.3 H Carbon Dioxide BUN 55 H Creatinine Glucose POC Glucose Magnesium AST ALT Alkaline Phosphatase Total Creatine Kinase NT-Pro-B Natriuret Pep Albumin Urine WBC (Auto) > 182.0 H Crossmatch 11/03/18 11/04/18 11/04/18 12:51 05:12 05:12 WBC 11.5 H RBC 2.94 L Hgb 8.3 L Hct 25.3 L MCH MCHC RDW 17.3 H Plt Count 514 H Lymph % (Auto) [place] % (Auto) Eos % (Auto) Lymph # [place] # Eos # Seg Neutrophils % Seg Neutrophils # PT INR POC ABG pH POC ABG pCO2 POC ABG pO2 VBG pH Sodium 147 H Potassium Chloride 112.4 H Carbon Dioxide BUN 52 H Creatinine Glucose POC Glucose Magnesium AST ALT Alkaline Phosphatase Total Creatine Kinase NT-Pro-B Natriuret Pep Albumin Urine WBC (Auto) Crossmatch See Detail 11/05/18 11/05/18 11/06/18 04:50 04:50 05:42 WBC RBC 3.03 L 2.80 L Hgb 8.7 L 7.9 L Hct 26.6 L 24.7 L MCH MCHC RDW 17.1 H 17.0 H Plt Count 502 H 478 H Lymph % (Auto) 10.4 L [place] % (Auto) 8.6 H Eos % (Auto) 4.7 H Lymph # 1.0 L [place] # Eos # 0.5 H Seg Neutrophils % 75.6 H Seg Neutrophils # PT INR POC ABG pH POC ABG pCO2 POC ABG pO2 VBG pH Sodium 149 H Potassium Chloride 114.4 H Carbon Dioxide 21 L BUN 50 H Creatinine Glucose 108 H POC Glucose Magnesium AST ALT Alkaline Phosphatase Total Creatine Kinase NT-Pro-B Natriuret Pep Albumin Urine WBC (Auto) Crossmatch 11/06/18 11/11/18 11/12/18 05:42 18:54 00:22 WBC RBC Hgb Hct MCH MCHC RDW Plt Count Lymph % (Auto) [place] % (Auto) Eos % (Auto) Lymph # [place] # Eos # Seg Neutrophils % Seg Neutrophils # PT INR POC ABG pH POC ABG pCO2 POC ABG pO2 VBG pH Sodium 149 H Potassium Chloride 113.4 H Carbon Dioxide BUN 50 H Creatinine Glucose 121 H POC Glucose 114 H 123 H Magnesium AST ALT Alkaline Phosphatase Total Creatine Kinase NT-Pro-B Natriuret Pep Albumin Urine WBC (Auto) Crossmatch 11/12/18 11/12/18 11/13/18 06:49 11:35 06:34 WBC RBC Hgb Hct MCH MCHC RDW Plt Count Lymph % (Auto) [place] % (Auto) Eos % (Auto) Lymph # [place] # Eos # Seg Neutrophils % Seg Neutrophils # PT INR POC ABG pH POC ABG pCO2 POC ABG pO2 VBG pH Sodium Potassium Chloride Carbon Dioxide BUN Creatinine Glucose POC Glucose 129 H 123 H 128 H Magnesium AST ALT Alkaline Phosphatase Total Creatine Kinase NT-Pro-B Natriuret Pep Albumin Urine WBC (Auto) Crossmatch 06/26/19 06/26/19 06/26/19 09:26 09:26 15:13 WBC RBC 3.08 L Hgb 8.6 L Hct 27.3 L MCH MCHC 31 L RDW 18.3 H Plt Count 504 H Lymph % (Auto) 11.7 L [place] % (Auto) 7.5 H Eos % (Auto) 7.0 H Lymph # [place] # Eos # 0.7 H Seg Neutrophils % 72.9 H Seg Neutrophils # PT INR POC ABG pH POC ABG pCO2 POC ABG pO2 VBG pH Sodium 153 H Potassium 6.3 H* 5.8 H Chloride 122.3 H Carbon Dioxide 21 L BUN 38 H Creatinine Glucose 112 H POC Glucose Magnesium AST ALT Alkaline Phosphatase Total Creatine Kinase NT-Pro-B Natriuret Pep Albumin Urine WBC (Auto) Crossmatch 11/13/18 11/13/18 11/14/18 22:10 23:45 13:17 WBC RBC Hgb Hct MCH MCHC RDW Plt Count Lymph % (Auto) [place] % (Auto) Eos % (Auto) Lymph # [place] # Eos # Seg Neutrophils % Seg Neutrophils # PT INR POC ABG pH POC ABG pCO2 POC ABG pO2 VBG pH Sodium 155 H Potassium 5.3 H Chloride 122.3 H Carbon Dioxide BUN 35 H Creatinine Glucose 113 H POC Glucose 111 H 142 H Magnesium AST ALT Alkaline Phosphatase Total Creatine Kinase NT-Pro-B Natriuret Pep Albumin Urine WBC (Auto) Crossmatch 11/14/18 11/15/18 11/15/18 19:08 00:31 06:45 WBC RBC Hgb Hct MCH MCHC RDW Plt Count Lymph % (Auto) [place] % (Auto) Eos % (Auto) Lymph # [place] # Eos # Seg Neutrophils % Seg Neutrophils # PT INR POC ABG pH POC ABG pCO2 POC ABG pO2 VBG pH Sodium Potassium Chloride Carbon Dioxide BUN Creatinine Glucose POC Glucose 116 H 125 H 131 H Magnesium AST ALT Alkaline Phosphatase Total Creatine Kinase NT-Pro-B Natriuret Pep Albumin Urine WBC (Auto) Crossmatch 11/15/18 11/15/18 11/15/18 07:13 07:13 19:03 WBC 13.2 H RBC 2.81 L Hgb 7.8 L Hct 24.5 L MCH MCHC RDW 18.2 H Plt Count 454 H Lymph % (Auto) 9.0 L [place] % (Auto) 7.5 H Eos % (Auto) Lymph # [place] # 1.0 H Eos # 0.5 H Seg Neutrophils % 78.8 H Seg Neutrophils # 10.4 H PT INR POC ABG pH POC ABG pCO2 POC ABG pO2 VBG pH Sodium 149 H Potassium 5.2 H Chloride 117.2 H Carbon Dioxide BUN 38 H Creatinine Glucose 114 H POC Glucose 141 H Magnesium AST ALT Alkaline Phosphatase Total Creatine Kinase NT-Pro-B Natriuret Pep Albumin Urine WBC (Auto) Crossmatch 11/16/18 11/16/18 11/16/18 01:15 01:15 06:45 WBC RBC Hgb Hct MCH MCHC RDW Plt Count Lymph % (Auto) [place] % (Auto) Eos % (Auto) Lymph # [place] # Eos # Seg Neutrophils % Seg Neutrophils # PT INR POC ABG pH POC ABG pCO2 POC ABG pO2 VBG pH Sodium Potassium 5.3 H Chloride Carbon Dioxide BUN Creatinine Glucose POC Glucose 129 H Magnesium 2.60 H AST ALT Alkaline Phosphatase Total Creatine Kinase NT-Pro-B Natriuret Pep Albumin Urine WBC (Auto) Crossmatch 11/16/18 11/16/18 11/17/18 13:20 18:02 00:16 WBC RBC Hgb Hct MCH MCHC RDW Plt Count Lymph % (Auto) [place] % (Auto) Eos % (Auto) Lymph # [place] # Eos # Seg Neutrophils % Seg Neutrophils # PT INR POC ABG pH POC ABG pCO2 POC ABG pO2 VBG pH Sodium Potassium Chloride Carbon Dioxide BUN Creatinine Glucose POC Glucose 130 H 127 H 120 H Magnesium AST ALT Alkaline Phosphatase Total Creatine Kinase NT-Pro-B Natriuret Pep Albumin Urine WBC (Auto) Crossmatch 11/17/18 11/17/18 11/17/18 05:48 08:02 08:02 WBC RBC Hgb 7.5 L Hct 23.5 L MCH MCHC RDW Plt Count Lymph % (Auto) [place] % (Auto) Eos % (Auto) Lymph # [place] # Eos # Seg Neutrophils % Seg Neutrophils # PT INR POC ABG pH POC ABG pCO2 POC ABG pO2 VBG pH Sodium Potassium Chloride 110.1 H Carbon Dioxide 21 L BUN 38 H Creatinine Glucose 121 H POC Glucose 130 H Magnesium AST ALT Alkaline Phosphatase Total Creatine Kinase NT-Pro-B Natriuret Pep Albumin Urine WBC (Auto) Crossmatch 11/17/18 11/17/18 11/18/18 12:17 16:48 06:00 WBC RBC Hgb Hct MCH MCHC RDW Plt Count Lymph % (Auto) [place] % (Auto) Eos % (Auto) Lymph # [place] # Eos # Seg Neutrophils % Seg Neutrophils # PT INR POC ABG pH POC ABG pCO2 POC ABG pO2 VBG pH Sodium Potassium Chloride Carbon Dioxide BUN Creatinine Glucose POC Glucose 140 H 120 H 137 H Magnesium AST ALT Alkaline Phosphatase Total Creatine Kinase NT-Pro-B Natriuret Pep Albumin Urine WBC (Auto) Crossmatch 11/19/18 11/19/18 11/19/18 00:20 05:35 06:11 WBC RBC Hgb Hct MCH MCHC RDW Plt Count Lymph % (Auto) [place] % (Auto) Eos % (Auto) Lymph # [place] # Eos # Seg Neutrophils % Seg Neutrophils # PT INR POC ABG pH POC ABG pCO2 POC ABG pO2 VBG pH Sodium Potassium Chloride Carbon Dioxide BUN Creatinine Glucose POC Glucose 111 H 126 H Magnesium AST ALT Alkaline Phosphatase Total Creatine Kinase 53 L NT-Pro-B Natriuret Pep Albumin Urine WBC (Auto) Crossmatch 11/19/18 11/19/18 11/20/18 11:37 23:43 06:52 WBC RBC Hgb Hct MCH MCHC RDW Plt Count Lymph % (Auto) [place] % (Auto) Eos % (Auto) Lymph # [place] # Eos # Seg Neutrophils % Seg Neutrophils # PT INR POC ABG pH POC ABG pCO2 POC ABG pO2 VBG pH Sodium Potassium Chloride Carbon Dioxide BUN Creatinine Glucose POC Glucose 139 H 145 H 125 H Magnesium AST ALT Alkaline Phosphatase Total Creatine Kinase NT-Pro-B Natriuret Pep Albumin Urine WBC (Auto) Crossmatch 11/20/18 11/20/18 11/20/18 09:55 09:55 11:49 WBC RBC 3.04 L Hgb 8.4 L Hct 26.1 L MCH MCHC RDW 17.5 H Plt Count Lymph % (Auto) [place] % (Auto) Eos % (Auto) Lymph # [place] # Eos # Seg Neutrophils % Seg Neutrophils # PT INR POC ABG pH POC ABG pCO2 POC ABG pO2 VBG pH Sodium 149 H Potassium Chloride 114.5 H Carbon Dioxide 21 L BUN 35 H Creatinine Glucose 127 H POC Glucose 150 H Magnesium AST ALT Alkaline Phosphatase Total Creatine Kinase NT-Pro-B Natriuret Pep Albumin Urine WBC (Auto) Crossmatch 11/20/18 11/20/18 11/21/18 18:02 23:49 06:14 WBC RBC Hgb Hct MCH MCHC RDW Plt Count Lymph % (Auto) [place] % (Auto) Eos % (Auto) Lymph # [place] # Eos # Seg Neutrophils % Seg Neutrophils # PT INR POC ABG pH POC ABG pCO2 POC ABG pO2 VBG pH Sodium Potassium Chloride Carbon Dioxide BUN Creatinine Glucose POC Glucose 131 H 137 H 133 H Magnesium AST ALT Alkaline Phosphatase Total Creatine Kinase NT-Pro-B Natriuret Pep Albumin Urine WBC (Auto) Crossmatch 11/21/18 11/21/18 11/21/18 10:00 12:09 18:04 WBC RBC Hgb Hct MCH MCHC RDW Plt Count Lymph % (Auto) [place] % (Auto) Eos % (Auto) Lymph # [place] # Eos # Seg Neutrophils % Seg Neutrophils # PT INR POC ABG pH POC ABG pCO2 POC ABG pO2 VBG pH Sodium Potassium Chloride 110.6 H Carbon Dioxide BUN 31 H Creatinine Glucose 119 H POC Glucose 116 H 126 H Magnesium AST ALT Alkaline Phosphatase Total Creatine Kinase NT-Pro-B Natriuret Pep Albumin Urine WBC (Auto) Crossmatch 11/22/18 11/22/18 11/22/18 00:14 05:47 06:23 WBC RBC Hgb Hct MCH MCHC RDW Plt Count Lymph % (Auto) [place] % (Auto) Eos % (Auto) Lymph # [place] # Eos # Seg Neutrophils % Seg Neutrophils # PT INR POC ABG pH POC ABG pCO2 POC ABG pO2 VBG pH Sodium Potassium Chloride 107.6 H Carbon Dioxide BUN 32 H Creatinine 0.7 L Glucose 116 H POC Glucose 122 H 119 H Magnesium AST ALT Alkaline Phosphatase Total Creatine Kinase NT-Pro-B Natriuret Pep Albumin Urine WBC (Auto) Crossmatch 11/22/18 11/22/18 11/22/18 08:40 12:19 17:39 WBC RBC Hgb Hct MCH MCHC RDW Plt Count Lymph % (Auto) [place] % (Auto) Eos % (Auto) Lymph # [place] # Eos # Seg Neutrophils % Seg Neutrophils # PT INR POC ABG pH POC ABG pCO2 POC ABG pO2 VBG pH Sodium Potassium Chloride Carbon Dioxide BUN Creatinine Glucose POC Glucose 150 H 111 H 108 H Magnesium AST ALT Alkaline Phosphatase Total Creatine Kinase NT-Pro-B Natriuret Pep Albumin Urine WBC (Auto) Crossmatch 11/23/18 11/23/18 11/23/18 00:36 05:37 05:56 WBC RBC Hgb Hct MCH MCHC RDW Plt Count Lymph % (Auto) [place] % (Auto) Eos % (Auto) Lymph # [place] # Eos # Seg Neutrophils % Seg Neutrophils # PT INR POC ABG pH POC ABG pCO2 POC ABG pO2 VBG pH Sodium 136 L Potassium Chloride Carbon Dioxide BUN 30 H Creatinine 0.7 L Glucose 103 H POC Glucose 125 H 122 H Magnesium 2.50 H AST ALT Alkaline Phosphatase Total Creatine Kinase NT-Pro-B Natriuret Pep Albumin Urine WBC (Auto) Crossmatch 11/23/18 11/23/18 11/23/18 11:56 17:39 23:40 WBC RBC Hgb Hct MCH MCHC RDW Plt Count Lymph % (Auto) [place] % (Auto) Eos % (Auto) Lymph # [place] # Eos # Seg Neutrophils % Seg Neutrophils # PT INR POC ABG pH POC ABG pCO2 POC ABG pO2 VBG pH Sodium Potassium Chloride Carbon Dioxide BUN Creatinine Glucose POC Glucose 121 H 113 H 117 H Magnesium AST ALT Alkaline Phosphatase Total Creatine Kinase NT-Pro-B Natriuret Pep Albumin Urine WBC (Auto) Crossmatch 11/24/18 11/24/18 11/24/18 05:13 12:00 18:13 WBC RBC Hgb Hct MCH MCHC RDW Plt Count Lymph % (Auto) [place] % (Auto) Eos % (Auto) Lymph # [place] # Eos # Seg Neutrophils % Seg Neutrophils # PT INR POC ABG pH POC ABG pCO2 POC ABG pO2 VBG pH Sodium Potassium Chloride Carbon Dioxide BUN Creatinine Glucose POC Glucose 143 H 123 H 124 H Magnesium AST ALT Alkaline Phosphatase Total Creatine Kinase NT-Pro-B Natriuret Pep Albumin Urine WBC (Auto) Crossmatch 11/24/18 11/25/18 11/25/18 23:34 05:25 05:25 WBC RBC 2.48 L Hgb 6.8 L Hct 21.2 L MCH MCHC RDW 17.7 H Plt Count Lymph % (Auto) [place] % (Auto) Eos % (Auto) Lymph # [place] # Eos # Seg Neutrophils % Seg Neutrophils # PT INR POC ABG pH POC ABG pCO2 POC ABG pO2 VBG pH Sodium Potassium Chloride 108.8 H Carbon Dioxide BUN 30 H Creatinine 0.7 L Glucose 112 H POC Glucose 115 H Magnesium AST ALT Alkaline Phosphatase Total Creatine Kinase NT-Pro-B Natriuret Pep Albumin Urine WBC (Auto) Crossmatch 11/25/18 11/25/18 11/25/18 06:46 11:15 11:28 WBC RBC Hgb 7.4 L Hct 23.0 L MCH MCHC RDW Plt Count Lymph % (Auto) [place] % (Auto) Eos % (Auto) Lymph # [place] # Eos # Seg Neutrophils % Seg Neutrophils # PT INR POC ABG pH POC ABG pCO2 POC ABG pO2 VBG pH Sodium Potassium Chloride Carbon Dioxide BUN Creatinine Glucose POC Glucose 133 H 127 H Magnesium AST ALT Alkaline Phosphatase Total Creatine Kinase NT-Pro-B Natriuret Pep Albumin Urine WBC (Auto) Crossmatch 11/25/18 11/25/18 11/25/18 15:28 17:32 23:45 WBC RBC Hgb Hct MCH MCHC RDW Plt Count Lymph % (Auto) [place] % (Auto) Eos % (Auto) Lymph # [place] # Eos # Seg Neutrophils % Seg Neutrophils # PT INR POC ABG pH POC ABG pCO2 POC ABG pO2 VBG pH Sodium Potassium Chloride Carbon Dioxide BUN Creatinine Glucose POC Glucose 115 H 130 H Magnesium AST ALT Alkaline Phosphatase Total Creatine Kinase NT-Pro-B Natriuret Pep Albumin Urine WBC (Auto) Crossmatch See Detail 11/26/18 11/26/18 11/26/18 06:13 06:20 06:20 WBC RBC 2.76 L Hgb 7.7 L Hct 23.4 L MCH MCHC RDW 17.5 H Plt Count Lymph % (Auto) [place] % (Auto) Eos % (Auto) Lymph # [place] # Eos # Seg Neutrophils % Seg Neutrophils # PT INR POC ABG pH POC ABG pCO2 POC ABG pO2 VBG pH Sodium Potassium Chloride 109.9 H Carbon Dioxide BUN 30 H Creatinine 0.6 L Glucose 121 H POC Glucose 129 H Magnesium AST ALT Alkaline Phosphatase Total Creatine Kinase NT-Pro-B Natriuret Pep Albumin Urine WBC (Auto) Crossmatch 11/26/18 11/26/18 11/27/18 12:06 16:35 06:04 WBC RBC Hgb Hct MCH MCHC RDW Plt Count Lymph % (Auto) [place] % (Auto) Eos % (Auto) Lymph # [place] # Eos # Seg Neutrophils % Seg Neutrophils # PT INR POC ABG pH POC ABG pCO2 POC ABG pO2 VBG pH Sodium Potassium Chloride Carbon Dioxide BUN Creatinine Glucose POC Glucose 139 H 107 H 126 H Magnesium AST ALT Alkaline Phosphatase Total Creatine Kinase NT-Pro-B Natriuret Pep Albumin Urine WBC (Auto) Crossmatch 11/27/18 11/27/18 11/28/18 13:14 17:47 07:03 WBC RBC Hgb Hct MCH MCHC RDW Plt Count Lymph % (Auto) [place] % (Auto) Eos % (Auto) Lymph # [place] # Eos # Seg Neutrophils % Seg Neutrophils # PT INR POC ABG pH POC ABG pCO2 POC ABG pO2 VBG pH Sodium Potassium Chloride Carbon Dioxide BUN Creatinine Glucose POC Glucose 130 H 115 H 118 H Magnesium AST ALT Alkaline Phosphatase Total Creatine Kinase NT-Pro-B Natriuret Pep Albumin Urine WBC (Auto) Crossmatch 11/28/18 11/29/18 11/29/18 11:38 00:35 04:56 WBC RBC Hgb Hct MCH MCHC RDW Plt Count Lymph % (Auto) [place] % (Auto) Eos % (Auto) Lymph # [place] # Eos # Seg Neutrophils % Seg Neutrophils # PT INR POC ABG pH POC ABG pCO2 POC ABG pO2 VBG pH Sodium Potassium Chloride Carbon Dioxide BUN Creatinine Glucose POC Glucose 126 H 107 H Magnesium AST ALT Alkaline Phosphatase Total Creatine Kinase 50 L NT-Pro-B Natriuret Pep Albumin Urine WBC (Auto) Crossmatch 11/29/18 11/29/18 11/29/18 05:49 11:46 18:17 WBC RBC Hgb Hct MCH MCHC RDW Plt Count Lymph % (Auto) [place] % (Auto) Eos % (Auto) Lymph # [place] # Eos # Seg Neutrophils % Seg Neutrophils # PT INR POC ABG pH POC ABG pCO2 POC ABG pO2 VBG pH Sodium Potassium Chloride Carbon Dioxide BUN Creatinine Glucose POC Glucose 128 H 140 H 115 H Magnesium AST ALT Alkaline Phosphatase Total Creatine Kinase NT-Pro-B Natriuret Pep Albumin Urine WBC (Auto) Crossmatch 11/30/18 11/30/18 11/30/18 00:00 03:30 03:30 WBC RBC 2.97 L Hgb 8.1 L Hct 25.5 L MCH 27 L MCHC RDW 17.7 H Plt Count Lymph % (Auto) 9.2 L [place] % (Auto) 10.0 H Eos % (Auto) 4.6 H Lymph # 1.0 L [place] # 1.1 H Eos # 0.5 H Seg Neutrophils % 75.6 H Seg Neutrophils # 8.4 H PT INR POC ABG pH POC ABG pCO2 POC ABG pO2 VBG pH Sodium Potassium Chloride Carbon Dioxide BUN 31 H Creatinine 0.7 L Glucose POC Glucose 120 H Magnesium AST ALT Alkaline Phosphatase Total Creatine Kinase NT-Pro-B Natriuret Pep Albumin Urine WBC (Auto) Crossmatch 11/30/18 11/30/18 11/30/18 06:54 11:45 16:59 WBC RBC Hgb Hct MCH MCHC RDW Plt Count Lymph % (Auto) [place] % (Auto) Eos % (Auto) Lymph # [place] # Eos # Seg Neutrophils % Seg Neutrophils # PT INR POC ABG pH POC ABG pCO2 POC ABG pO2 VBG pH Sodium Potassium Chloride Carbon Dioxide BUN Creatinine Glucose POC Glucose 120 H 123 H 111 H Magnesium AST ALT Alkaline Phosphatase Total Creatine Kinase NT-Pro-B Natriuret Pep Albumin Urine WBC (Auto) Crossmatch 12/01/18 12/01/18 12/01/18 00:20 05:58 11:33 WBC RBC Hgb Hct MCH MCHC RDW Plt Count Lymph % (Auto) [place] % (Auto) Eos % (Auto) Lymph # [place] # Eos # Seg Neutrophils % Seg Neutrophils # PT INR POC ABG pH POC ABG pCO2 POC ABG pO2 VBG pH Sodium Potassium Chloride Carbon Dioxide BUN Creatinine Glucose POC Glucose 113 H 127 H 138 H Magnesium AST ALT Alkaline Phosphatase Total Creatine Kinase NT-Pro-B Natriuret Pep Albumin Urine WBC (Auto) Crossmatch 12/02/18 12/03/18 12/03/18 00:33 05:07 05:07 WBC RBC 2.93 L Hgb 8.2 L Hct 24.9 L MCH MCHC RDW 17.0 H Plt Count 470 H Lymph % (Auto) 9.3 L [place] % (Auto) 8.6 H Eos % (Auto) 5.4 H Lymph # 0.9 L [place] # Eos # 0.5 H Seg Neutrophils % 75.8 H Seg Neutrophils # PT INR POC ABG pH POC ABG pCO2 POC ABG pO2 VBG pH Sodium Potassium Chloride Carbon Dioxide BUN 30 H Creatinine 0.6 L Glucose 115 H POC Glucose 110 H Magnesium AST ALT Alkaline Phosphatase Total Creatine Kinase NT-Pro-B Natriuret Pep Albumin Urine WBC (Auto) Crossmatch 0712/03/18 12/03/18 05:58 11:49 17:44 WBC RBC Hgb Hct MCH MCHC RDW Plt Count Lymph % (Auto) [place] % (Auto) Eos % (Auto) Lymph # [place] # Eos # Seg Neutrophils % Seg Neutrophils # PT INR POC ABG pH POC ABG pCO2 POC ABG pO2 VBG pH Sodium Potassium Chloride Carbon Dioxide BUN Creatinine Glucose POC Glucose 127 H 138 H 127 H Magnesium AST ALT Alkaline Phosphatase Total Creatine Kinase NT-Pro-B Natriuret Pep Albumin Urine WBC (Auto) Crossmatch Allied health notes reviewed: nursing
--- NOTE | 2018-12-04 12:28 | Procedure Note ---
Date of procedure: 12/04/18 Pre-op diagnosis: Multiple decubitus ulcerations Post-op diagnosis: same Procedure: Debridement of multiple pressure ulcerations Description of procedure: Pt was initially placed right side down. He was repositioned as needed to expose his ulcerations. The right heel, left hip and right foot ulcerations were surgically, excisionally debrided of necrotic fascia and muscle with a curette. Bleeding was minimal and was controlled with pressure. The left ankle, left heel, sacrum and right leg were surgically, excisionally debrided of necrotic SQ tissue with a curette. Bleeding was minimal and was controlled with pressure. Pt tolerated the procedure well. Wounds were dressed by the Wound Care nurse. Final wound measurements were as follows: 1) Left lateral ankle - 2.4 x 2.5 x 0.3 cm 2) Right knee - 2.4 x 2.0 x 0.3 cm 3) Left heel - 3.9 x 5.7 x 0.4 cm 4) Right heel - 2.1 x 2.5 x 0.6 cm 5) Left hip - 4.5 x 4.4 x 7.0 cm 6) Sacrum - 11 x 15 x 0.5 cm 7) Right medial great toe - 1.3 x 1 x 0.3 cm 8) Right lateral leg - 8.5 x 2.3 x 0.3 cm Anesthesia: none Surgeon: FABRICIO WASHINGTON Estimated blood loss: minimal Pathology: none Specimen disposition: discarded Condition: stable Disposition: no change
[2018-12-05] MEDS: NORCO 5/325 PO PRN (04:08)
[2018-12-05] MEDS: COREG PO SCH ×3 (04:09→22:03)
[2018-12-05] MEDS: SODIUM CHLORIDE FLUSH SYRINGE 10 ML IV SCH ×4 (04:20→22:04)
--- NOTE | 2018-12-05 09:05 | Progress Note ---
Assessment and Plan (1) Sepsis- severe Current Visit: Yes Status: Acute Plan to address problem: Volume resuscitation cautiously Antibiotics per ID (2) Respiratory failure Current Visit: Yes Status: Acute Qualifiers: Chronicity: acute Respiratory failure complication: hypoxia Qualified Code(s): J96.01 - Acute respiratory failure with hypoxia Plan to address problem: Supplemental oxygen wean fro O2 sats >90% Bronchodilators per protocol Judicious use of IVF to prevent pulmonary edema (3) Seizure Current Visit: Yes Status: Acute Plan to address problem: Continue current therapy, seizure precautions. (4) UTI (urinary tract infection) Current Visit: Yes Status: Acute Qualifiers: Encounter type: initial encounter Plan to address problem: IV antibiotic therapy (5) Dementia Current Visit: Yes Status: Acute Qualifiers: Dementia behavioral disturbance: without behavioral disturbance Plan to address problem: Per primary (6) sacral pressure ulcer -infected. POA WOUND CARE CONSULT. CONTINUE ABX. (7)DVT prophylaxis Current Visit: Yes Status: Acute Plan to address problem: SCD to BLE while in bed, Prophylactic lovenox POOR PROGNOSIS Subjective Date of service: 12/05/18 Principal diagnosis: Severe Sepsis; Ac. Hypoxemic Resp failure; Anemia; Seizure; UTI; BPH Interval history: Patient is seen today for: Severe Sepsis; Acute Hypoxemic Respiratory failure; Anemia of chronic disease; Seizure; UTI (urinary tract infection); BPH; Dementi a; sacral pressure ulcer -infected. POA Seen and examined at bedside; 24-hour events reviewed; nursing and respiratory care staff consulted; no adverse overnight events reported to me; resting peacefully in bed; No N/V/F/C; s/p debridment of multiple pressure ulcers; Vitals, labs, medications, chart reviewed. On 3L NC, comfortable, Right chest wall tunnelled PICC line Objective Vital Signs - 12hr 12/05/18 12/05/18 12/05/18 02:00 07:19 07:52 Temperature 98.3 F 98.4 F Pulse Rate 82 81 Pulse Rate [ 80 Right Radial] Respiratory 18 18 Rate Blood Pressure 128/62 Blood Pressure 143/69 [Left] O2 Sat by Pulse 95 96 Oximetry Constitutional: no acute distress, alert Eyes: non-icteric ENT: oropharynx moist Neck: no lymphadenopathy, no JVD, other (mild stiffness / contracture) Effort: mildly labored Ascultation: Bilateral: diminished breath sounds, rhonchi Percussion: Bilateral: not dull Cardiovascular: regular rate and rhythm, other (S1,S2, no murmurs, gallops or rubs) Gastrointestinal: normoactive bowel sounds, soft, non-tender, non-distended Integumentary: rash Extremities: no cyanosis, no edema, pulses normal, other (Patient has pressure ulcer at multiple areas, including sacral area.) Neurologic: pupils equal and round, other (+ contractures) Psychiatric: mood appropriate CBC and BMP: 12/12/18 00:05 12/06/18 20:57 ABG, PT/INR, D-dimer: ABG POC ABG pH 7.494 (7.35-7.45) H 11/01/18 15:27 POC ABG pCO2 34.5 (35-45) L 11/01/18 15:27 POC ABG pO2 139 (80-105) H 11/01/18 15:27 POC ABG HCO3 26.5 (22-26 mml/L) 11/01/18 15:27 POC ABG Total CO2 28 (23-27mmol/L) 11/01/18 15:27 POC ABG O2 Sat 99 11/01/18 15:27 PT/INR, D-dimer PT 16.3 Sec. (12.2-14.9) H 11/01/18 14:50 INR 1.35 (0.87-1.13) H 11/01/18 14:50 Abnormal lab findings: Abnormal Labs 11/01/18 11/01/18 11/01/18 14:50 14:50 14:50 WBC 15.3 H RBC 2.76 L Hgb 7.9 L Hct 23.5 L MCH MCHC RDW 18.3 H Plt Count 567 H Lymph % (Auto) 6.5 L Garza % (Auto) 8.5 H Eos % (Auto) Lymph # 1.0 L Garza # 1.3 H Eos # Seg Neutrophils % 83.4 H Seg Neutrophils # 12.7 H PT 16.3 H INR 1.35 H POC ABG pH POC ABG pCO2 POC ABG pO2 VBG pH Sodium Potassium Chloride Carbon Dioxide BUN 49 H Creatinine Glucose 132 H POC Glucose Magnesium AST 90 H ALT 77 H Alkaline Phosphatase 350 H Total Creatine Kinase NT-Pro-B Natriuret Pep Albumin 1.6 L Urine WBC (Auto) Crossmatch 11/01/18 11/01/18 11/01/18 14:50 14:50 15:27 WBC RBC Hgb Hct MCH MCHC RDW Plt Count Lymph % (Auto) Garza % (Auto) Eos % (Auto) Lymph # Garza # Eos # Seg Neutrophils % Seg Neutrophils # PT INR POC ABG pH 7.494 H POC ABG pCO2 34.5 L POC ABG pO2 139 H VBG pH 7.499 H Sodium Potassium Chloride Carbon Dioxide BUN Creatinine Glucose POC Glucose Magnesium AST ALT Alkaline Phosphatase Total Creatine Kinase NT-Pro-B Natriuret Pep 6776 H Albumin Urine WBC (Auto) Crossmatch 11/01/18 11/03/18 11/03/18 15:57 03:41 03:41 WBC 12.8 H RBC 2.55 L Hgb 6.9 L Hct 22.2 L MCH 27 L MCHC 31 L RDW 17.9 H Plt Count 519 H Lymph % (Auto) Garza % (Auto) Eos % (Auto) Lymph # Garza # Eos # Seg Neutrophils % Seg Neutrophils # PT INR POC ABG pH POC ABG pCO2 POC ABG pO2 VBG pH Sodium 147 H Potassium Chloride 110.3 H Carbon Dioxide BUN 55 H Creatinine Glucose POC Glucose Magnesium AST ALT Alkaline Phosphatase Total Creatine Kinase NT-Pro-B Natriuret Pep Albumin Urine WBC (Auto) > 182.0 H Crossmatch 11/03/18 11/04/18 11/04/18 12:51 05:12 05:12 WBC 11.5 H RBC 2.94 L Hgb 8.3 L Hct 25.3 L MCH MCHC RDW 17.3 H Plt Count 514 H Lymph % (Auto) Garza % (Auto) Eos % (Auto) Lymph # Garza # Eos # Seg Neutrophils % Seg Neutrophils # PT INR POC ABG pH POC ABG pCO2 POC ABG pO2 VBG pH Sodium 147 H Potassium Chloride 112.4 H Carbon Dioxide BUN 52 H Creatinine Glucose POC Glucose Magnesium AST ALT Alkaline Phosphatase Total Creatine Kinase NT-Pro-B Natriuret Pep Albumin Urine WBC (Auto) Crossmatch See Detail 11/05/18 11/05/18 11/06/18 04:50 04:50 05:42 WBC RBC 3.03 L 2.80 L Hgb 8.7 L 7.9 L Hct 26.6 L 24.7 L MCH MCHC RDW 17.1 H 17.0 H Plt Count 502 H 478 H Lymph % (Auto) 10.4 L Garza % (Auto) 8.6 H Eos % (Auto) 4.7 H Lymph # 1.0 L Garza # Eos # 0.5 H Seg Neutrophils % 75.6 H Seg Neutrophils # PT INR POC ABG pH POC ABG pCO2 POC ABG pO2 VBG pH Sodium 149 H Potassium Chloride 114.4 H Carbon Dioxide 21 L BUN 50 H Creatinine Glucose 108 H POC Glucose Magnesium AST ALT Alkaline Phosphatase Total Creatine Kinase NT-Pro-B Natriuret Pep Albumin Urine WBC (Auto) Crossmatch 11/06/18 11/11/18 11/12/18 05:42 18:54 00:22 WBC RBC Hgb Hct MCH MCHC RDW Plt Count Lymph % (Auto) Garza % (Auto) Eos % (Auto) Lymph # Garza # Eos # Seg Neutrophils % Seg Neutrophils # PT INR POC ABG pH POC ABG pCO2 POC ABG pO2 VBG pH Sodium 149 H Potassium Chloride 113.4 H Carbon Dioxide BUN 50 H Creatinine Glucose 121 H POC Glucose 114 H 123 H Magnesium AST ALT Alkaline Phosphatase Total Creatine Kinase NT-Pro-B Natriuret Pep Albumin Urine WBC (Auto) Crossmatch 11/12/18 11/12/18 11/13/18 06:49 11:35 06:34 WBC RBC Hgb Hct MCH MCHC RDW Plt Count Lymph % (Auto) Garza % (Auto) Eos % (Auto) Lymph # Garza # Eos # Seg Neutrophils % Seg Neutrophils # PT INR POC ABG pH POC ABG pCO2 POC ABG pO2 VBG pH Sodium Potassium Chloride Carbon Dioxide BUN Creatinine Glucose POC Glucose 129 H 123 H 128 H Magnesium AST ALT Alkaline Phosphatase Total Creatine Kinase NT-Pro-B Natriuret Pep Albumin Urine WBC (Auto) Crossmatch 11/13/18 11/13/18 11/13/18 09:26 09:26 15:13 WBC RBC 3.08 L Hgb 8.6 L Hct 27.3 L MCH MCHC 31 L RDW 18.3 H Plt Count 504 H Lymph % (Auto) 11.7 L Garza % (Auto) 7.5 H Eos % (Auto) 7.0 H Lymph # Garza # Eos # 0.7 H Seg Neutrophils % 72.9 H Seg Neutrophils # PT INR POC ABG pH POC ABG pCO2 POC ABG pO2 VBG pH Sodium 153 H Potassium 6.3 H* 5.8 H Chloride 122.3 H Carbon Dioxide 21 L BUN 38 H Creatinine Glucose 112 H POC Glucose Magnesium AST ALT Alkaline Phosphatase Total Creatine Kinase NT-Pro-B Natriuret Pep Albumin Urine WBC (Auto) Crossmatch 11/13/18 11/13/18 11/14/18 22:10 23:45 13:17 WBC RBC Hgb Hct MCH MCHC RDW Plt Count Lymph % (Auto) Garza % (Auto) Eos % (Auto) Lymph # Garza # Eos # Seg Neutrophils % Seg Neutrophils # PT INR POC ABG pH POC ABG pCO2 POC ABG pO2 VBG pH Sodium 155 H Potassium 5.3 H Chloride 122.3 H Carbon Dioxide BUN 35 H Creatinine Glucose 113 H POC Glucose 111 H 142 H Magnesium AST ALT Alkaline Phosphatase Total Creatine Kinase NT-Pro-B Natriuret Pep Albumin Urine WBC (Auto) Crossmatch 11/14/18 11/15/18 11/15/18 19:08 00:31 06:45 WBC RBC Hgb Hct MCH MCHC RDW Plt Count Lymph % (Auto) Garza % (Auto) Eos % (Auto) Lymph # Garza # Eos # Seg Neutrophils % Seg Neutrophils # PT INR POC ABG pH POC ABG pCO2 POC ABG pO2 VBG pH Sodium Potassium Chloride Carbon Dioxide BUN Creatinine Glucose POC Glucose 116 H 125 H 131 H Magnesium AST ALT Alkaline Phosphatase Total Creatine Kinase NT-Pro-B Natriuret Pep Albumin Urine WBC (Auto) Crossmatch 11/15/18 11/15/18 11/15/18 07:13 07:13 19:03 WBC 13.2 H RBC 2.81 L Hgb 7.8 L Hct 24.5 L MCH MCHC RDW 18.2 H Plt Count 454 H Lymph % (Auto) 9.0 L Garza % (Auto) 7.5 H Eos % (Auto) Lymph # Garza # 1.0 H Eos # 0.5 H Seg Neutrophils % 78.8 H Seg Neutrophils # 10.4 H PT INR POC ABG pH POC ABG pCO2 POC ABG pO2 VBG pH Sodium 149 H Potassium 5.2 H Chloride 117.2 H Carbon Dioxide BUN 38 H Creatinine Glucose 114 H POC Glucose 141 H Magnesium AST ALT Alkaline Phosphatase Total Creatine Kinase NT-Pro-B Natriuret Pep Albumin Urine WBC (Auto) Crossmatch 11/16/18 11/16/18 11/16/18 01:15 01:15 06:45 WBC RBC Hgb Hct MCH MCHC RDW Plt Count Lymph % (Auto) Garza % (Auto) Eos % (Auto) Lymph # Garza # Eos # Seg Neutrophils % Seg Neutrophils # PT INR POC ABG pH POC ABG pCO2 POC ABG pO2 VBG pH Sodium Potassium 5.3 H Chloride Carbon Dioxide BUN Creatinine Glucose POC Glucose 129 H Magnesium 2.60 H AST ALT Alkaline Phosphatase Total Creatine Kinase NT-Pro-B Natriuret Pep Albumin Urine WBC (Auto) Crossmatch 11/16/18 11/16/18 11/17/18 13:20 18:02 00:16 WBC RBC Hgb Hct MCH MCHC RDW Plt Count Lymph % (Auto) Garza % (Auto) Eos % (Auto) Lymph # Garza # Eos # Seg Neutrophils % Seg Neutrophils # PT INR POC ABG pH POC ABG pCO2 POC ABG pO2 VBG pH Sodium Potassium Chloride Carbon Dioxide BUN Creatinine Glucose POC Glucose 130 H 127 H 120 H Magnesium AST ALT Alkaline Phosphatase Total Creatine Kinase NT-Pro-B Natriuret Pep Albumin Urine WBC (Auto) Crossmatch 11/17/18 11/17/18 11/17/18 05:48 08:02 08:02 WBC RBC Hgb 7.5 L Hct 23.5 L MCH MCHC RDW Plt Count Lymph % (Auto) Garza % (Auto) Eos % (Auto) Lymph # Garza # Eos # Seg Neutrophils % Seg Neutrophils # PT INR POC ABG pH POC ABG pCO2 POC ABG pO2 VBG pH Sodium Potassium Chloride 110.1 H Carbon Dioxide 21 L BUN 38 H Creatinine Glucose 121 H POC Glucose 130 H Magnesium AST ALT Alkaline Phosphatase Total Creatine Kinase NT-Pro-B Natriuret Pep Albumin Urine WBC (Auto) Crossmatch 11/17/18 11/17/18 11/18/18 12:17 16:48 06:00 WBC RBC Hgb Hct MCH MCHC RDW Plt Count Lymph % (Auto) Garza % (Auto) Eos % (Auto) Lymph # Garza # Eos # Seg Neutrophils % Seg Neutrophils # PT INR POC ABG pH POC ABG pCO2 POC ABG pO2 VBG pH Sodium Potassium Chloride Carbon Dioxide BUN Creatinine Glucose POC Glucose 140 H 120 H 137 H Magnesium AST ALT Alkaline Phosphatase Total Creatine Kinase NT-Pro-B Natriuret Pep Albumin Urine WBC (Auto) Crossmatch 11/19/18 11/19/18 11/19/18 00:20 05:35 06:11 WBC RBC Hgb Hct MCH MCHC RDW Plt Count Lymph % (Auto) Garza % (Auto) Eos % (Auto) Lymph # Garza # Eos # Seg Neutrophils % Seg Neutrophils # PT INR POC ABG pH POC ABG pCO2 POC ABG pO2 VBG pH Sodium Potassium Chloride Carbon Dioxide BUN Creatinine Glucose POC Glucose 111 H 126 H Magnesium AST ALT Alkaline Phosphatase Total Creatine Kinase 53 L NT-Pro-B Natriuret Pep Albumin Urine WBC (Auto) Crossmatch 11/19/18 11/19/18 11/20/18 11:37 23:43 06:52 WBC RBC Hgb Hct MCH MCHC RDW Plt Count Lymph % (Auto) Garza % (Auto) Eos % (Auto) Lymph # Garza # Eos # Seg Neutrophils % Seg Neutrophils # PT INR POC ABG pH POC ABG pCO2 POC ABG pO2 VBG pH Sodium Potassium Chloride Carbon Dioxide BUN Creatinine Glucose POC Glucose 139 H 145 H 125 H Magnesium AST ALT Alkaline Phosphatase Total Creatine Kinase NT-Pro-B Natriuret Pep Albumin Urine WBC (Auto) Crossmatch 11/20/18 11/20/18 11/20/18 09:55 09:55 11:49 WBC RBC 3.04 L Hgb 8.4 L Hct 26.1 L MCH MCHC RDW 17.5 H Plt Count Lymph % (Auto) Garza % (Auto) Eos % (Auto) Lymph # Garza # Eos # Seg Neutrophils % Seg Neutrophils # PT INR POC ABG pH POC ABG pCO2 POC ABG pO2 VBG pH Sodium 149 H Potassium Chloride 114.5 H Carbon Dioxide 21 L BUN 35 H Creatinine Glucose 127 H POC Glucose 150 H Magnesium AST ALT Alkaline Phosphatase Total Creatine Kinase NT-Pro-B Natriuret Pep Albumin Urine WBC (Auto) Crossmatch 11/20/18 11/20/18 11/21/18 18:02 23:49 06:14 WBC RBC Hgb Hct MCH MCHC RDW Plt Count Lymph % (Auto) Garza % (Auto) Eos % (Auto) Lymph # Garza # Eos # Seg Neutrophils % Seg Neutrophils # PT INR POC ABG pH POC ABG pCO2 POC ABG pO2 VBG pH Sodium Potassium Chloride Carbon Dioxide BUN Creatinine Glucose POC Glucose 131 H 137 H 133 H Magnesium AST ALT Alkaline Phosphatase Total Creatine Kinase NT-Pro-B Natriuret Pep Albumin Urine WBC (Auto) Crossmatch 11/21/18 11/21/18 11/21/18 10:00 12:09 18:04 WBC RBC Hgb Hct MCH MCHC RDW Plt Count Lymph % (Auto) Garza % (Auto) Eos % (Auto) Lymph # Garza # Eos # Seg Neutrophils % Seg Neutrophils # PT INR POC ABG pH POC ABG pCO2 POC ABG pO2 VBG pH Sodium Potassium Chloride 110.6 H Carbon Dioxide BUN 31 H Creatinine Glucose 119 H POC Glucose 116 H 126 H Magnesium AST ALT Alkaline Phosphatase Total Creatine Kinase NT-Pro-B Natriuret Pep Albumin Urine WBC (Auto) Crossmatch 11/22/18 11/22/18 11/22/18 00:14 05:47 06:23 WBC RBC Hgb Hct MCH MCHC RDW Plt Count Lymph % (Auto) Garza % (Auto) Eos % (Auto) Lymph # Garza # Eos # Seg Neutrophils % Seg Neutrophils # PT INR POC ABG pH POC ABG pCO2 POC ABG pO2 VBG pH Sodium Potassium Chloride 107.6 H Carbon Dioxide BUN 32 H Creatinine 0.7 L Glucose 116 H POC Glucose 122 H 119 H Magnesium AST ALT Alkaline Phosphatase Total Creatine Kinase NT-Pro-B Natriuret Pep Albumin Urine WBC (Auto) Crossmatch 11/22/18 11/22/18 11/22/18 08:40 12:19 17:39 WBC RBC Hgb Hct MCH MCHC RDW Plt Count Lymph % (Auto) Garza % (Auto) Eos % (Auto) Lymph # Garza # Eos # Seg Neutrophils % Seg Neutrophils # PT INR POC ABG pH POC ABG pCO2 POC ABG pO2 VBG pH Sodium Potassium Chloride Carbon Dioxide BUN Creatinine Glucose POC Glucose 150 H 111 H 108 H Magnesium AST ALT Alkaline Phosphatase Total Creatine Kinase NT-Pro-B Natriuret Pep Albumin Urine WBC (Auto) Crossmatch 11/23/18 11/23/18 11/23/18 00:36 05:37 05:56 WBC RBC Hgb Hct MCH MCHC RDW Plt Count Lymph % (Auto) Garza % (Auto) Eos % (Auto) Lymph # Garza # Eos # Seg Neutrophils % Seg Neutrophils # PT INR POC ABG pH POC ABG pCO2 POC ABG pO2 VBG pH Sodium 136 L Potassium Chloride Carbon Dioxide BUN 30 H Creatinine 0.7 L Glucose 103 H POC Glucose 125 H 122 H Magnesium 2.50 H AST ALT Alkaline Phosphatase Total Creatine Kinase NT-Pro-B Natriuret Pep Albumin Urine WBC (Auto) Crossmatch 11/23/18 11/23/18 11/23/18 11:56 17:39 23:40 WBC RBC Hgb Hct MCH MCHC RDW Plt Count Lymph % (Auto) Garza % (Auto) Eos % (Auto) Lymph # Garza # Eos # Seg Neutrophils % Seg Neutrophils # PT INR POC ABG pH POC ABG pCO2 POC ABG pO2 VBG pH Sodium Potassium Chloride Carbon Dioxide BUN Creatinine Glucose POC Glucose 121 H 113 H 117 H Magnesium AST ALT Alkaline Phosphatase Total Creatine Kinase NT-Pro-B Natriuret Pep Albumin Urine WBC (Auto) Crossmatch 11/24/18 11/24/18 11/24/18 05:13 12:00 18:13 WBC RBC Hgb Hct MCH MCHC RDW Plt Count Lymph % (Auto) Garza % (Auto) Eos % (Auto) Lymph # Garza # Eos # Seg Neutrophils % Seg Neutrophils # PT INR POC ABG pH POC ABG pCO2 POC ABG pO2 VBG pH Sodium Potassium Chloride Carbon Dioxide BUN Creatinine Glucose POC Glucose 143 H 123 H 124 H Magnesium AST ALT Alkaline Phosphatase Total Creatine Kinase NT-Pro-B Natriuret Pep Albumin Urine WBC (Auto) Crossmatch 11/24/18 11/25/18 11/25/18 23:34 05:25 05:25 WBC RBC 2.48 L Hgb 6.8 L Hct 21.2 L MCH MCHC RDW 17.7 H Plt Count Lymph % (Auto) Garza % (Auto) Eos % (Auto) Lymph # Garza # Eos # Seg Neutrophils % Seg Neutrophils # PT INR POC ABG pH POC ABG pCO2 POC ABG pO2 VBG pH Sodium Potassium Chloride 108.8 H Carbon Dioxide BUN 30 H Creatinine 0.7 L Glucose 112 H POC Glucose 115 H Magnesium AST ALT Alkaline Phosphatase Total Creatine Kinase NT-Pro-B Natriuret Pep Albumin Urine WBC (Auto) Crossmatch 11/25/18 11/25/18 11/25/18 06:46 11:15 11:28 WBC RBC Hgb 7.4 L Hct 23.0 L MCH MCHC RDW Plt Count Lymph % (Auto) Garza % (Auto) Eos % (Auto) Lymph # Garza # Eos # Seg Neutrophils % Seg Neutrophils # PT INR POC ABG pH POC ABG pCO2 POC ABG pO2 VBG pH Sodium Potassium Chloride Carbon Dioxide BUN Creatinine Glucose POC Glucose 133 H 127 H Magnesium AST ALT Alkaline Phosphatase Total Creatine Kinase NT-Pro-B Natriuret Pep Albumin Urine WBC (Auto) Crossmatch 11/25/18 11/25/18 11/25/18 15:28 17:32 23:45 WBC RBC Hgb Hct MCH MCHC RDW Plt Count Lymph % (Auto) Garza % (Auto) Eos % (Auto) Lymph # Garza # Eos # Seg Neutrophils % Seg Neutrophils # PT INR POC ABG pH POC ABG pCO2 POC ABG pO2 VBG pH Sodium Potassium Chloride Carbon Dioxide BUN Creatinine Glucose POC Glucose 115 H 130 H Magnesium AST ALT Alkaline Phosphatase Total Creatine Kinase NT-Pro-B Natriuret Pep Albumin Urine WBC (Auto) Crossmatch See Detail 11/26/18 11/26/18 11/26/18 06:13 06:20 06:20 WBC RBC 2.76 L Hgb 7.7 L Hct 23.4 L MCH MCHC RDW 17.5 H Plt Count Lymph % (Auto) Garza % (Auto) Eos % (Auto) Lymph # Garza # Eos # Seg Neutrophils % Seg Neutrophils # PT INR POC ABG pH POC ABG pCO2 POC ABG pO2 VBG pH Sodium Potassium Chloride 109.9 H Carbon Dioxide BUN 30 H Creatinine 0.6 L Glucose 121 H POC Glucose 129 H Magnesium AST ALT Alkaline Phosphatase Total Creatine Kinase NT-Pro-B Natriuret Pep Albumin Urine WBC (Auto) Crossmatch 11/26/18 11/26/18 11/27/18 12:06 16:35 06:04 WBC RBC Hgb Hct MCH MCHC RDW Plt Count Lymph % (Auto) Garza % (Auto) Eos % (Auto) Lymph # Garza # Eos # Seg Neutrophils % Seg Neutrophils # PT INR POC ABG pH POC ABG pCO2 POC ABG pO2 VBG pH Sodium Potassium Chloride Carbon Dioxide BUN Creatinine Glucose POC Glucose 139 H 107 H 126 H Magnesium AST ALT Alkaline Phosphatase Total Creatine Kinase NT-Pro-B Natriuret Pep Albumin Urine WBC (Auto) Crossmatch 11/27/18 11/27/18 11/28/18 13:14 17:47 07:03 WBC RBC Hgb Hct MCH MCHC RDW Plt Count Lymph % (Auto) Garza % (Auto) Eos % (Auto) Lymph # Garza # Eos # Seg Neutrophils % Seg Neutrophils # PT INR POC ABG pH POC ABG pCO2 POC ABG pO2 VBG pH Sodium Potassium Chloride Carbon Dioxide BUN Creatinine Glucose POC Glucose 130 H 115 H 118 H Magnesium AST ALT Alkaline Phosphatase Total Creatine Kinase NT-Pro-B Natriuret Pep Albumin Urine WBC (Auto) Crossmatch 11/28/18 11/29/18 11/29/18 11:38 00:35 04:56 WBC RBC Hgb Hct MCH MCHC RDW Plt Count Lymph % (Auto) Garza % (Auto) Eos % (Auto) Lymph # Garza # Eos # Seg Neutrophils % Seg Neutrophils # PT INR POC ABG pH POC ABG pCO2 POC ABG pO2 VBG pH Sodium Potassium Chloride Carbon Dioxide BUN Creatinine Glucose POC Glucose 126 H 107 H Magnesium AST ALT Alkaline Phosphatase Total Creatine Kinase 50 L NT-Pro-B Natriuret Pep Albumin Urine WBC (Auto) Crossmatch 11/29/18 11/29/18 11/29/18 05:49 11:46 18:17 WBC RBC Hgb Hct MCH MCHC RDW Plt Count Lymph % (Auto) Garza % (Auto) Eos % (Auto) Lymph # Garza # Eos # Seg Neutrophils % Seg Neutrophils # PT INR POC ABG pH POC ABG pCO2 POC ABG pO2 VBG pH Sodium Potassium Chloride Carbon Dioxide BUN Creatinine Glucose POC Glucose 128 H 140 H 115 H Magnesium AST ALT Alkaline Phosphatase Total Creatine Kinase NT-Pro-B Natriuret Pep Albumin Urine WBC (Auto) Crossmatch 11/30/18 11/30/18 11/30/18 00:00 03:30 03:30 WBC RBC 2.97 L Hgb 8.1 L Hct 25.5 L MCH 27 L MCHC RDW 17.7 H Plt Count Lymph % (Auto) 9.2 L Garza % (Auto) 10.0 H Eos % (Auto) 4.6 H Lymph # 1.0 L Garza # 1.1 H Eos # 0.5 H Seg Neutrophils % 75.6 H Seg Neutrophils # 8.4 H PT INR POC ABG pH POC ABG pCO2 POC ABG pO2 VBG pH Sodium Potassium Chloride Carbon Dioxide BUN 31 H Creatinine 0.7 L Glucose POC Glucose 120 H Magnesium AST ALT Alkaline Phosphatase Total Creatine Kinase NT-Pro-B Natriuret Pep Albumin Urine WBC (Auto) Crossmatch 11/30/18 11/30/18 11/30/18 06:54 11:45 16:59 WBC RBC Hgb Hct MCH MCHC RDW Plt Count Lymph % (Auto) Garza % (Auto) Eos % (Auto) Lymph # Garza # Eos # Seg Neutrophils % Seg Neutrophils # PT INR POC ABG pH POC ABG pCO2 POC ABG pO2 VBG pH Sodium Potassium Chloride Carbon Dioxide BUN Creatinine Glucose POC Glucose 120 H 123 H 111 H Magnesium AST ALT Alkaline Phosphatase Total Creatine Kinase NT-Pro-B Natriuret Pep Albumin Urine WBC (Auto) Crossmatch 12/01/18 12/01/18 12/01/18 00:20 05:58 11:33 WBC RBC Hgb Hct MCH MCHC RDW Plt Count Lymph % (Auto) Garza % (Auto) Eos % (Auto) Lymph # Garza # Eos # Seg Neutrophils % Seg Neutrophils # PT INR POC ABG pH POC ABG pCO2 POC ABG pO2 VBG pH Sodium Potassium Chloride Carbon Dioxide BUN Creatinine Glucose POC Glucose 113 H 127 H 138 H Magnesium AST ALT Alkaline Phosphatase Total Creatine Kinase NT-Pro-B Natriuret Pep Albumin Urine WBC (Auto) Crossmatch 12/02/18 12/03/18 12/03/18 00:33 05:07 05:07 WBC RBC 2.93 L Hgb 8.2 L Hct 24.9 L MCH MCHC RDW 17.0 H Plt Count 470 H Lymph % (Auto) 9.3 L Garza % (Auto) 8.6 H Eos % (Auto) 5.4 H Lymph # 0.9 L Garza # Eos # 0.5 H Seg Neutrophils % 75.8 H Seg Neutrophils # PT INR POC ABG pH POC ABG pCO2 POC ABG pO2 VBG pH Sodium Potassium Chloride Carbon Dioxide BUN 30 H Creatinine 0.6 L Glucose 115 H POC Glucose 110 H Magnesium AST ALT Alkaline Phosphatase Total Creatine Kinase NT-Pro-B Natriuret Pep Albumin Urine WBC (Auto) Crossmatch 12/03/18 12/03/18 12/03/18 05:58 11:49 17:44 WBC RBC Hgb Hct MCH MCHC RDW Plt Count Lymph % (Auto) Garza % (Auto) Eos % (Auto) Lymph # Garza # Eos # Seg Neutrophils % Seg Neutrophils # PT INR POC ABG pH POC ABG pCO2 POC ABG pO2 VBG pH Sodium Potassium Chloride Carbon Dioxide BUN Creatinine Glucose POC Glucose 127 H 138 H 127 H Magnesium AST ALT Alkaline Phosphatase Total Creatine Kinase NT-Pro-B Natriuret Pep Albumin Urine WBC (Auto) Crossmatch 12/05/18 12/05/18 00:22 05:53 WBC RBC Hgb Hct MCH MCHC RDW Plt Count Lymph % (Auto) Garza % (Auto) Eos % (Auto) Lymph # Garza # Eos # Seg Neutrophils % Seg Neutrophils # PT INR POC ABG pH POC ABG pCO2 POC ABG pO2 VBG pH Sodium Potassium Chloride Carbon Dioxide BUN Creatinine Glucose POC Glucose 124 H 121 H Magnesium AST ALT Alkaline Phosphatase Total Creatine Kinase NT-Pro-B Natriuret Pep Albumin Urine WBC (Auto) Crossmatch Allied health notes reviewed: nursing
[2018-12-05] MEDS: KEPPRA FEEDTUBE SCH ×2 (09:22→22:03)
[2018-12-05] MEDS: LOVENOX SUB-Q SCH (09:22)
[2018-12-05] MEDS: ZINC SULFATE PO SCH (09:22)
[2018-12-05] MEDS: APRESOLINE PO SCH ×2 (09:23→22:03)
[2018-12-05] MEDS: Centrum Liq FEEDTUBE SCH (09:23)
[2018-12-05] MEDS: DUONEB *Not for PRN Use IH SCH ×2 (10:02→19:33)
[2018-12-05] MEDS: VITAMIN C FEEDTUBE SCH ×2 (10:29→22:03)
[2018-12-05] MEDS: DAPTOMYCIN IV SCH (10:29)
[2018-12-05] MEDS: NACL 0.9% IV SCH (10:29)
--- NOTE | 2018-12-05 11:27 | Progress Note ---
Assessment and Plan Assessment and plan: 67 YO Male Nursing Home Facility Resident as [facility] with HTN, CVA, Obstructive Uropathy, Diastolic CHF, Contracture, Sacral Decubitus Ulcers, [place], DM, OA, Seizure Disorder, COPD, Dementia, BPH presents to ED for evaluation. Pt is stuporous and unable to provide history. Pt history taken from ED Staff, EMS, and SNF Staff. As per staff, the patient was found to have respiratory distress upon evaluation this morning. Pt found to have pulse oximetry in the 80's. EMS notified and patient subsequently transported to [facility] for further care and evaluation. Pt seen and evaluated in ED and found to have UTI, Sepsis, Encephalopathy as well as Acute Hypoxemic Respiratory Failure. Pt initiated on NIPPV in ED with improvement in symptoms. Pt admitted to IMCU and initiated on Sepsis protocol. Prior admission on 10/01/18 reviewed. Extensive discussion with family about patients poor prognosis surgery consult appreciated ID following, Pulmonary status improved Continue isolation care Chaudhary placed by Urology please do not remove Sepsis Continue IMCU care, place on isolation, ID consult noted, patient is on IV daptomycin blood cultures with gram positive Multiple hx of MRSA, Multi organ Monitor uop q shift. ID recumbent because Synthroid Respiratory failure Supplemental oxygen, nebulizer therapy,pulse oximetry, Chest X ray, NIPPV UNABLE TO GET v/q scan Pulmonary following the patient Anemia of chronic disease Transfuse one unit PRBC hemoglobin is stable Seizure Continue current therapy, seizure precautions. UTI (urinary tract infection) IV antibiotic therapy, CBC, CMP, Urinalysis. BPH Continue Chaudhary catherter Dementia IVF resuscitation therapy, supportive care, treat sepsis. sacral pressure ulcer -infected. POA WOUND CARE CONSULT. CONTINUE ABX. Debridement done by Dr Man Amputation recommended and the daughter refused Orthopedics consulted for hip disarticulation but said transfer if needed The wound involved the bone and orthopedics consulted. DVT prophylaxis Current Visit: Yes Status: Acute Plan to address problem: SCD to BLE while in bed, Prophylactic lovenox POOR PROGNOSIS Disposition; Pending placement to SNF. History Interval history: Patient was seen and evaluated this morning, patient didn't have complaints. Hospitalist Physical - Physical exam Narrative exam: Not in cardiopulmonary distress. The patient appeared well nourished and normally developed. Vital signs as documented. Head exam is unremarkable. No scleral icterus . Neck is without jugular venous distension, thyromegaly, or carotid bruits. Lungs are clear to auscultation. Cardiac exam reveals regular rate and Rhythm. First and second heart sounds normal. No murmurs, rubs or gallops. Abdominal exam reveals normal bowel sounds, no masses, no organomegaly and no aortic enlargement. Extremities contracted extremities. 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 Skin; multiple decubitus ulcers, including the sacrum and the heel. - Constitutional Vitals: Temp Pulse Resp BP Pulse Ox 98.4 F 82 18 128/62 99 12/05/18 07:19 12/05/18 10:12 12/05/18 10:12 12/05/18 07:19 12/05/18 10:00 General appearance: Present: no acute distress Results - Labs CBC & Chem 7: 12/03/18 05:07 12/03/18 05:07 Labs: Laboratory Last Values WBC 9.4 K/mm3 (4.5-11.0) 12/03/18 05:07 RBC 2.93 M/mm3 (3.65-5.03) L 12/03/18 05:07 Hgb 8.2 gm/dl (11.8-15.2) L 12/03/18 05:07 Hct 24.9 % (35.5-45.6) L 12/03/18 05:07 MCV 85 fl (84-94) 12/03/18 05:07 MCH 28 pg (28-32) 12/03/18 05:07 MCHC 33 % (32-34) 12/03/18 05:07 RDW 17.0 % (13.2-15.2) H 12/03/18 05:07 Plt Count 470 K/mm3 (140-440) H 12/03/18 05:07 Lymph % (Auto) 9.3 % (13.4-35.0) L 12/03/18 05:07 [place] % (Auto) 8.6 % (0.0-7.3) H 12/03/18 05:07 Eos % (Auto) 5.4 % (0.0-4.3) H 12/03/18 05:07 Baso % (Auto) 0.9 % (0.0-1.8) 12/03/18 05:07 Lymph # 0.9 K/mm3 (1.2-5.4) L 12/03/18 05:07 [place] # 0.8 K/mm3 (0.0-0.8) 12/03/18 05:07 Eos # 0.5 K/mm3 (0.0-0.4) H 12/03/18 05:07 Baso # 0.1 K/mm3 (0.0-0.1) 12/03/18 05:07 Seg Neutrophils % 75.8 % (40.0-70.0) H 12/03/18 05:07 Seg Neutrophils # 7.1 K/mm3 (1.8-7.7) 12/03/18 05:07 PT 16.3 Sec. (12.2-14.9) H 11/01/18 14:50 INR 1.35 (0.87-1.13) H 11/01/18 14:50 POC ABG pH 7.494 (7.35-7.45) H 11/01/18 15:27 POC ABG pCO2 34.5 (35-45) L 11/01/18 15:27 POC ABG pO2 139 (80-105) H 11/01/18 15:27 POC ABG HCO3 26.5 (22-26 mml/L) 11/01/18 15:27 POC ABG Total CO2 28 (23-27mmol/L) 11/01/18 15:27 POC ABG O2 Sat 99 11/01/18 15:27 POC ABG Base Excess 3 ((-2) - (+3)mmol/L) 11/01/18 15:27 VBG pH 7.499 (7.320-7.420) H 11/01/18 14:50 50 % 11/01/18 15:27 Sodium 140 mmol/L (137-145) 12/03/18 05:07 Potassium 3.7 mmol/L (3.6-5.0) 12/03/18 05:07 Chloride 106.5 mmol/L (98-107) 12/03/18 05:07 Carbon Dioxide 23 mmol/L (22-30) 12/03/18 05:07 14 mmol/L 12/03/18 05:07 BUN 30 mg/dL (9-20) H 12/03/18 05:07 0.6 mg/dL (0.8-1.5) L 12/03/18 05:07 Estimated GFR > 60 ml/min 12/03/18 05:07 50 % 12/03/18 05:07 Glucose 115 mg/dL (75-100) H 12/03/18 05:07 POC Glucose 121 (70-105) H 12/05/18 05:53 Lactic Acid 1.80 mmol/L (0.7-2.0) 11/01/18 14:50 Calcium 9.5 mg/dL (8.4-10.2) 12/03/18 05:07 Phosphorus 2.90 mg/dL (2.5-4.5) 11/22/18 09:43 Magnesium 2.50 mg/dL (1.7-2.3) H 11/23/18 05:56 0.30 mg/dL (0.1-1.2) 11/01/18 14:50 AST 90 units/L (5-40) H 11/01/18 14:50 ALT 77 units/L (7-56) H 11/01/18 14:50 350 units/L (35-129) H 11/01/18 14:50 72 units/L (55-170) 11/30/18 00:31 NT-Pro-B Natriuret Pep 6776 pg/mL (0-900) H 11/01/18 14:50 7.9 g/dL (6.3-8.2) 11/01/18 14:50 1.6 g/dL (3.9-5) L 11/01/18 14:50 0.3 % 11/01/18 14:50 14 units/L (13-60) 11/25/18 15:07 Yellow (Yellow) 11/01/18 15:57 Turbid (Clear) 11/01/18 15:57 6.0 (5.0-7.0) 11/01/18 15:57 Ur Specific Barnard 1.016 (1.003-1.030) 11/01/18 15:57 100 mg/dl mg/dL (Negative) 11/01/18 15:57 Neg mg/dL (Negative) 11/01/18 15:57 Neg mg/dL (Negative) 11/01/18 15:57 Neg (Negative) 11/01/18 15:57 Neg (Negative) 11/01/18 15:57 Neg (Negative) 11/01/18 15:57 < 2.0 mg/dL (<2.0) 11/01/18 15:57 Ur Leukocyte Esterase Mod (Negative) 11/01/18 15:57 > 182.0 /HPF (0.0-6.0) H 11/01/18 15:57 40.0 /HPF (0.0-6.0) 11/01/18 15:57 U Epithel Cells (Auto) 8.0 /HPF (0-13.0) 11/01/18 15:57 3+ /HPF 11/01/18 15:57 3+ /HPF 11/01/18 15:57 Random Vancomycin 13.9 ug/mL (0-40.0) 11/02/18 05:05 Blood Type O POSITIVE 11/25/18 15:28 Antibody Screen Negative 11/25/18 15:28 Crossmatch See Detail 11/25/18 15:28 Active Medications - Current Medications Current Medications: Generic Name Dose Route Start Last Admin Trade Name Freq PRN Reason Stop Dose Admin Acetaminophen/Hydrocodone Bitart 1 each 11/15/18 04:51 12/05/18 04:08 Kinta 5/325 PO 1 each Q4H PRN Administration Pain, Moderate (4-6) Albuterol 2.5 mg 11/01/18 17:15 Proventil IH Q3HRT PRN Shortness Of Breath Albuterol/Ipratropium 1 ampul 11/28/18 20:00 12/05/18 10:02 Duoneb *Not For Prn Use* IH 1 ampul BIDRT NORA Administration Lipase/Protease/Amylase 1 each 11/03/18 17:12 12/02/18 08:40 Pancreazadela Moore 10,500 Unit FEEDTUBE 1 each PRN PRN Administration For Clogged Feeding Tube Ascorbic Acid 500 mg 11/01/18 22:00 12/05/18 10:29 Vitamin C FEEDTUBE 500 mg BID NORA Administration Atorvastatin Calcium 40 mg 11/01/18 22:00 12/04/18 22:10 Lipitor FEEDTUBE 40 mg QHS NORA Administration Carvedilol 6.25 mg 11/08/18 13:00 12/05/18 09:23 Coreg PO 6.25 mg BID NORA Administration Clonidine HCl 0.2 mg 11/05/18 17:18 12/03/18 18:33 Catapres-Tts Patch TD 0.2 mg Tu NORA Administration Enoxaparin Sodium 40 mg 11/02/18 10:00 12/05/18 09:22 Lovenox SUB-Q 40 mg QDAY@1000 NORA Administration Hydralazine HCl 10 mg 11/25/18 22:00 12/05/18 09:23 Apresoline PO 10 mg Q12HR NORA Administration Daptomycin 400 mg/ Sodium 100 mls @ 200 mls/hr 11/25/18 11:00 12/05/18 10:29 Chloride IV 12/16/18 11:29 200 mls/hr Q24H NORA Administration Protocol Levetiracetam 500 mg 11/01/18 22:00 12/05/18 09:22 Keppra FEEDTUBE 500 mg BID NORA Administration Morphine Sulfate 2 mg 11/01/18 17:15 11/30/18 21:15 Morphine IV 2 mg Q4H PRN Administration Pain, Moderate (4-6) Multivitamins 5 ml 11/02/18 10:00 12/05/18 09:23 Centrum Liq FEEDTUBE 5 ml QDAY NORA Administration Simple Syrup 15 ml 11/03/18 17:12 11/16/18 13:40 Simple Syrup FEEDTUBE 15 ml PRN PRN Administration Hypoglycemia Simple Syrup 30 ml 11/03/18 17:12 Simple Syrup FEEDTUBE PRN PRN Hypoglycemia Sodium Bicarbonate 325 mg 11/03/18 17:12 12/02/18 08:40 Sodium Bicarbonate FEEDTUBE 325 mg PRN PRN Administration For Clogged Feeding Tube Sodium Chloride 10 ml 11/01/18 22:00 12/05/18 09:24 Sodium Chloride Flush Syringe 10 Ml IV 10 ml BID NORA Administration Sodium Chloride 10 ml 11/01/18 17:15 11/23/18 04:05 Sodium Chloride Flush Syringe 10 Ml IV 10 ml PRN PRN Administration LINE FLUSH Zinc Sulfate 220 mg 11/02/18 10:00 12/05/18 09:22 Zinc Sulfate PO 220 mg DAILY NORA Administration Nutrition/Malnutrition Assess - Dietary Evaluation Nutrition/Malnutrition Findings: Nutrition Notes Start: 11/04/18 16:00 Freq: Status: Active Protocol: Document 11/29/18 15:47 RM (Rec: 11/29/18 15:48 RM [id number]) Nutrition Notes Initial or Follow up Reassessment Current Diagnosis COPD,Diabetes,Sepsis, Hypertension,Heart Failure, Stroke Other Pertinent Diagnosis Sacral PUs, UTI, Dementia Current Diet Nepro at 40 ml/hr Labs/Tests No recent labs Pertinent Medications Reviewed Height 5 ft 8 in Weight 62.4 kg [place] Body Weight (kg) 70.00 BMI 20.9 Subjective/Other Information Observed Nepro infusing at goal rate. Percent of energy/protein needs met: 100%/100% Burn Absent Trauma Absent #1 Nutrition Diagnosis Inadequate oral intake Diagnosis Progress(for reassessment Continues documentation) Is patient on ventilator? No Is Patient Ambulatory and/or Out of Bed No REE-([facility]-confined to bed) 1062.080 Calculation Used for Recommendations [facility] Additional Notes Protein Needs: 76-95g (1.2-1. 5g/kg) Fluid Needs: 1 ml/kcal Nutrition Intervention Nutrition Support: Nepro 1.8 at 40 ml/hr. Water flush of 200 mls q 4 hrs . Kcal 1,728 Protein (gm) 78 Fluid (mL) 698 Goal #1 TF tolerance Goal #2 Continue to meet at least 75% of calorie and protein needs via TF Anticipated Discharge Needs: Unable to determine at this time Follow-Up By: 12/06/18 Additional Comments Follow for TF tolerance
[2018-12-06] MEDS: LOVENOX SUB-Q SCH (11:00)
[2018-12-06] MEDS: Centrum Liq FEEDTUBE SCH (11:00)
[2018-12-06] MEDS: COREG PO SCH ×2 (11:01→23:03)
[2018-12-06] MEDS: KEPPRA FEEDTUBE SCH ×2 (11:01→23:02)
[2018-12-06] MEDS: VITAMIN C FEEDTUBE SCH ×2 (11:05→23:02)
[2018-12-06] MEDS: APRESOLINE PO SCH ×2 (11:05→23:03)
[2018-12-06] MEDS: SODIUM CHLORIDE FLUSH SYRINGE 10 ML IV SCH ×2 (11:09→23:04)
[2018-12-06] MEDS: ZINC SULFATE PO SCH (11:33)
[2018-12-06] MEDS: DAPTOMYCIN IV SCH (12:07)
[2018-12-06] MEDS: NACL 0.9% IV SCH (12:07)
--- NOTE | 2018-12-06 13:07 | Progress Note ---
Assessment and Plan (1) Sepsis- severe Current Visit: Yes Status: Acute Plan to address problem: Volume resuscitation cautiously Antibiotics per ID (2) Respiratory failure Current Visit: Yes Status: Acute Qualifiers: Chronicity: acute Respiratory failure complication: hypoxia Qualified Code(s): J96.01 - Acute respiratory failure with hypoxia Plan to address problem: Supplemental oxygen wean fro O2 sats >90% Bronchodilaotrs per protocol Judicious use of IVF to prevent pulmonary edema (3) Seizure Current Visit: Yes Status: Acute Plan to address problem: Continue current therapy, seizure precautions. (4) UTI (urinary tract infection) Current Visit: Yes Status: Acute Qualifiers: Encounter type: initial encounter Plan to address problem: IV antibiotic therapy (5) Dementia Current Visit: Yes Status: Acute Qualifiers: Dementia behavioral disturbance: without behavioral disturbance Plan to address problem: Per primary (6) sacral pressure ulcer -infected. POA WOUND CARE CONSULT. CONTINUE ABX. (7)DVT prophylaxis Current Visit: Yes Status: Acute Plan to address problem: SCD to BLE while in bed, Prophylactic lovenox POOR PROGNOSIS Subjective Date of service: 12/06/18 Principal diagnosis: Severe Sepsis; Ac. Hypoxemic Resp failure; Anemia; Seizure; UTI; BPH Interval history: Patient is seen today for: Severe Sepsis; Acute Hypoxemic Respiratory failure; Anemia of chronic disease; Seizure; UTI (urinary tract infection); BPH; Dementi a; sacral pressure ulcer -infected. POA Seen and examined at bedside; 24-hour events reviewed; nursing and respiratory care staff consulted; no adverse overnight events reported to me; resting peacefully in bed; No N/V/F/C; s/p debridment of multile pressure ulcers; Vitals, labs, medications, chart reviewed. On 3L NC, comfortable, Right chest wall tunnelled PICC line Objective Vital Signs - 12hr 12/06/18 12/06/18 12/06/18 03:03 07:55 11:01 Temperature 98.6 F 98.6 F Pulse Rate 81 95 H 99 H Respiratory 22 20 Rate Blood Pressure 119/61 132/83 159/79 O2 Sat by Pulse 95 96 Oximetry 12/06/18 11:05 Temperature Pulse Rate 99 H Respiratory Rate Blood Pressure 159/79 O2 Sat by Pulse Oximetry Constitutional: no acute distress, alert Eyes: non-icteric ENT: oropharynx moist Neck: no lymphadenopathy, no JVD, other (mild stiffness / contracture) Effort: mildly labored Ascultation: Bilateral: diminished breath sounds, rhonchi Percussion: Bilateral: not dull Cardiovascular: regular rate and rhythm Gastrointestinal: normoactive bowel sounds, soft, non-tender, non-distended Integumentary: rash Extremities: no cyanosis, no edema, pulses normal, other (Patient has pressure ulcer at multiple areas, including sacral area.) Neurologic: pupils equal and round, other (+ contractures, awake and alert) Psychiatric: mood appropriate, affect normal CBC and BMP: 12/21/18 05:37 12/21/18 05:37 ABG, PT/INR, D-dimer: ABG POC ABG pH 7.494 (7.35-7.45) H 11/01/18 15:27 POC ABG pCO2 34.5 (35-45) L 11/01/18 15:27 POC ABG pO2 139 (80-105) H 11/01/18 15:27 POC ABG HCO3 26.5 (22-26 mml/L) 11/01/18 15:27 POC ABG Total CO2 28 (23-27mmol/L) 11/01/18 15:27 POC ABG O2 Sat 99 11/01/18 15:27 PT/INR, D-dimer PT 16.3 Sec. (12.2-14.9) H 11/01/18 14:50 INR 1.35 (0.87-1.13) H 11/01/18 14:50 Abnormal lab findings: Abnormal Labs 11/01/18 11/01/18 11/01/18 14:50 14:50 14:50 WBC 15.3 H RBC 2.76 L Hgb 7.9 L Hct 23.5 L MCH MCHC RDW 18.3 H Plt Count 567 H Lymph % (Auto) 6.5 L [place] % (Auto) 8.5 H Eos % (Auto) Lymph # 1.0 L [place] # 1.3 H Eos # Seg Neutrophils % 83.4 H Seg Neutrophils # 12.7 H PT 16.3 H INR 1.35 H POC ABG pH POC ABG pCO2 POC ABG pO2 VBG pH Sodium Potassium Chloride Carbon Dioxide BUN 49 H Creatinine Glucose 132 H POC Glucose Magnesium AST 90 H ALT 77 H Alkaline Phosphatase 350 H Total Creatine Kinase NT-Pro-B Natriuret Pep Albumin 1.6 L Urine WBC (Auto) Crossmatch 11/01/18 11/01/18 11/01/18 14:50 14:50 15:27 WBC RBC Hgb Hct MCH MCHC RDW Plt Count Lymph % (Auto) [place] % (Auto) Eos % (Auto) Lymph # [place] # Eos # Seg Neutrophils % Seg Neutrophils # PT INR POC ABG pH 7.494 H POC ABG pCO2 34.5 L POC ABG pO2 139 H VBG pH 7.499 H Sodium Potassium Chloride Carbon Dioxide BUN Creatinine Glucose POC Glucose Magnesium AST ALT Alkaline Phosphatase Total Creatine Kinase NT-Pro-B Natriuret Pep 6776 H Albumin Urine WBC (Auto) Crossmatch 11/01/18 11/03/18 11/03/18 15:57 03:41 03:41 WBC 12.8 H RBC 2.55 L Hgb 6.9 L Hct 22.2 L MCH 27 L MCHC 31 L RDW 17.9 H Plt Count 519 H Lymph % (Auto) [place] % (Auto) Eos % (Auto) Lymph # [place] # Eos # Seg Neutrophils % Seg Neutrophils # PT INR POC ABG pH POC ABG pCO2 POC ABG pO2 VBG pH Sodium 147 H Potassium Chloride 110.3 H Carbon Dioxide BUN 55 H Creatinine Glucose POC Glucose Magnesium AST ALT Alkaline Phosphatase Total Creatine Kinase NT-Pro-B Natriuret Pep Albumin Urine WBC (Auto) > 182.0 H Crossmatch 11/03/18 11/04/18 11/04/18 12:51 05:12 05:12 WBC 11.5 H RBC 2.94 L Hgb 8.3 L Hct 25.3 L MCH MCHC RDW 17.3 H Plt Count 514 H Lymph % (Auto) [place] % (Auto) Eos % (Auto) Lymph # [place] # Eos # Seg Neutrophils % Seg Neutrophils # PT INR POC ABG pH POC ABG pCO2 POC ABG pO2 VBG pH Sodium 147 H Potassium Chloride 112.4 H Carbon Dioxide BUN 52 H Creatinine Glucose POC Glucose Magnesium AST ALT Alkaline Phosphatase Total Creatine Kinase NT-Pro-B Natriuret Pep Albumin Urine WBC (Auto) Crossmatch See Detail 11/05/18 11/05/18 11/06/18 04:50 04:50 05:42 WBC RBC 3.03 L 2.80 L Hgb 8.7 L 7.9 L Hct 26.6 L 24.7 L MCH MCHC RDW 17.1 H 17.0 H Plt Count 502 H 478 H Lymph % (Auto) 10.4 L [place] % (Auto) 8.6 H Eos % (Auto) 4.7 H Lymph # 1.0 L [place] # Eos # 0.5 H Seg Neutrophils % 75.6 H Seg Neutrophils # PT INR POC ABG pH POC ABG pCO2 POC ABG pO2 VBG pH Sodium 149 H Potassium Chloride 114.4 H Carbon Dioxide 21 L BUN 50 H Creatinine Glucose 108 H POC Glucose Magnesium AST ALT Alkaline Phosphatase Total Creatine Kinase NT-Pro-B Natriuret Pep Albumin Urine WBC (Auto) Crossmatch 11/06/18 11/11/18 11/12/18 05:42 18:54 00:22 WBC RBC Hgb Hct MCH MCHC RDW Plt Count Lymph % (Auto) [place] % (Auto) Eos % (Auto) Lymph # [place] # Eos # Seg Neutrophils % Seg Neutrophils # PT INR POC ABG pH POC ABG pCO2 POC ABG pO2 VBG pH Sodium 149 H Potassium Chloride 113.4 H Carbon Dioxide BUN 50 H Creatinine Glucose 121 H POC Glucose 114 H 123 H Magnesium AST ALT Alkaline Phosphatase Total Creatine Kinase NT-Pro-B Natriuret Pep Albumin Urine WBC (Auto) Crossmatch 11/12/18 11/12/18 11/13/18 06:49 11:35 06:34 WBC RBC Hgb Hct MCH MCHC RDW Plt Count Lymph % (Auto) [place] % (Auto) Eos % (Auto) Lymph # [place] # Eos # Seg Neutrophils % Seg Neutrophils # PT INR POC ABG pH POC ABG pCO2 POC ABG pO2 VBG pH Sodium Potassium Chloride Carbon Dioxide BUN Creatinine Glucose POC Glucose 129 H 123 H 128 H Magnesium AST ALT Alkaline Phosphatase Total Creatine Kinase NT-Pro-B Natriuret Pep Albumin Urine WBC (Auto) Crossmatch 11/13/18 11/13/18 11/13/18 09:26 09:26 15:13 WBC RBC 3.08 L Hgb 8.6 L Hct 27.3 L MCH MCHC 31 L RDW 18.3 H Plt Count 504 H Lymph % (Auto) 11.7 L [place] % (Auto) 7.5 H Eos % (Auto) 7.0 H Lymph # [place] # Eos # 0.7 H Seg Neutrophils % 72.9 H Seg Neutrophils # PT INR POC ABG pH POC ABG pCO2 POC ABG pO2 VBG pH Sodium 153 H Potassium 6.3 H* 5.8 H Chloride 122.3 H Carbon Dioxide 21 L BUN 38 H Creatinine Glucose 112 H POC Glucose Magnesium AST ALT Alkaline Phosphatase Total Creatine Kinase NT-Pro-B Natriuret Pep Albumin Urine WBC (Auto) Crossmatch 11/13/18 11/13/18 11/14/18 22:10 23:45 13:17 WBC RBC Hgb Hct MCH MCHC RDW Plt Count Lymph % (Auto) [place] % (Auto) Eos % (Auto) Lymph # [place] # Eos # Seg Neutrophils % Seg Neutrophils # PT INR POC ABG pH POC ABG pCO2 POC ABG pO2 VBG pH Sodium 155 H Potassium 5.3 H Chloride 122.3 H Carbon Dioxide BUN 35 H Creatinine Glucose 113 H POC Glucose 111 H 142 H Magnesium AST ALT Alkaline Phosphatase Total Creatine Kinase NT-Pro-B Natriuret Pep Albumin Urine WBC (Auto) Crossmatch 11/14/18 11/15/18 11/15/18 19:08 00:31 06:45 WBC RBC Hgb Hct MCH MCHC RDW Plt Count Lymph % (Auto) [place] % (Auto) Eos % (Auto) Lymph # [place] # Eos # Seg Neutrophils % Seg Neutrophils # PT INR POC ABG pH POC ABG pCO2 POC ABG pO2 VBG pH Sodium Potassium Chloride Carbon Dioxide BUN Creatinine Glucose POC Glucose 116 H 125 H 131 H Magnesium AST ALT Alkaline Phosphatase Total Creatine Kinase NT-Pro-B Natriuret Pep Albumin Urine WBC (Auto) Crossmatch 11/15/18 11/15/18 11/15/18 07:13 07:13 19:03 WBC 13.2 H RBC 2.81 L Hgb 7.8 L Hct 24.5 L MCH MCHC RDW 18.2 H Plt Count 454 H Lymph % (Auto) 9.0 L [place] % (Auto) 7.5 H Eos % (Auto) Lymph # [place] # 1.0 H Eos # 0.5 H Seg Neutrophils % 78.8 H Seg Neutrophils # 10.4 H PT INR POC ABG pH POC ABG pCO2 POC ABG pO2 VBG pH Sodium 149 H Potassium 5.2 H Chloride 117.2 H Carbon Dioxide BUN 38 H Creatinine Glucose 114 H POC Glucose 141 H Magnesium AST ALT Alkaline Phosphatase Total Creatine Kinase NT-Pro-B Natriuret Pep Albumin Urine WBC (Auto) Crossmatch 11/16/18 11/16/18 11/16/18 01:15 01:15 06:45 WBC RBC Hgb Hct MCH MCHC RDW Plt Count Lymph % (Auto) [place] % (Auto) Eos % (Auto) Lymph # [place] # Eos # Seg Neutrophils % Seg Neutrophils # PT INR POC ABG pH POC ABG pCO2 POC ABG pO2 VBG pH Sodium Potassium 5.3 H Chloride Carbon Dioxide BUN Creatinine Glucose POC Glucose 129 H Magnesium 2.60 H AST ALT Alkaline Phosphatase Total Creatine Kinase NT-Pro-B Natriuret Pep Albumin Urine WBC (Auto) Crossmatch 11/16/18 11/16/18 11/17/18 13:20 18:02 00:16 WBC RBC Hgb Hct MCH MCHC RDW Plt Count Lymph % (Auto) [place] % (Auto) Eos % (Auto) Lymph # [place] # Eos # Seg Neutrophils % Seg Neutrophils # PT INR POC ABG pH POC ABG pCO2 POC ABG pO2 VBG pH Sodium Potassium Chloride Carbon Dioxide BUN Creatinine Glucose POC Glucose 130 H 127 H 120 H Magnesium AST ALT Alkaline Phosphatase Total Creatine Kinase NT-Pro-B Natriuret Pep Albumin Urine WBC (Auto) Crossmatch 11/17/18 11/17/18 11/17/18 05:48 08:02 08:02 WBC RBC Hgb 7.5 L Hct 23.5 L MCH MCHC RDW Plt Count Lymph % (Auto) [place] % (Auto) Eos % (Auto) Lymph # [place] # Eos # Seg Neutrophils % Seg Neutrophils # PT INR POC ABG pH POC ABG pCO2 POC ABG pO2 VBG pH Sodium Potassium Chloride 110.1 H Carbon Dioxide 21 L BUN 38 H Creatinine Glucose 121 H POC Glucose 130 H Magnesium AST ALT Alkaline Phosphatase Total Creatine Kinase NT-Pro-B Natriuret Pep Albumin Urine WBC (Auto) Crossmatch 11/17/18 11/17/18 11/18/18 12:17 16:48 06:00 WBC RBC Hgb Hct MCH MCHC RDW Plt Count Lymph % (Auto) [place] % (Auto) Eos % (Auto) Lymph # [place] # Eos # Seg Neutrophils % Seg Neutrophils # PT INR POC ABG pH POC ABG pCO2 POC ABG pO2 VBG pH Sodium Potassium Chloride Carbon Dioxide BUN Creatinine Glucose POC Glucose 140 H 120 H 137 H Magnesium AST ALT Alkaline Phosphatase Total Creatine Kinase NT-Pro-B Natriuret Pep Albumin Urine WBC (Auto) Crossmatch 11/19/18 11/19/18 11/19/18 00:20 05:35 06:11 WBC RBC Hgb Hct MCH MCHC RDW Plt Count Lymph % (Auto) [place] % (Auto) Eos % (Auto) Lymph # [place] # Eos # Seg Neutrophils % Seg Neutrophils # PT INR POC ABG pH POC ABG pCO2 POC ABG pO2 VBG pH Sodium Potassium Chloride Carbon Dioxide BUN Creatinine Glucose POC Glucose 111 H 126 H Magnesium AST ALT Alkaline Phosphatase Total Creatine Kinase 53 L NT-Pro-B Natriuret Pep Albumin Urine WBC (Auto) Crossmatch 11/19/18 11/19/18 11/20/18 11:37 23:43 06:52 WBC RBC Hgb Hct MCH MCHC RDW Plt Count Lymph % (Auto) [place] % (Auto) Eos % (Auto) Lymph # [place] # Eos # Seg Neutrophils % Seg Neutrophils # PT INR POC ABG pH POC ABG pCO2 POC ABG pO2 VBG pH Sodium Potassium Chloride Carbon Dioxide BUN Creatinine Glucose POC Glucose 139 H 145 H 125 H Magnesium AST ALT Alkaline Phosphatase Total Creatine Kinase NT-Pro-B Natriuret Pep Albumin Urine WBC (Auto) Crossmatch 11/20/18 11/20/18 11/20/18 09:55 09:55 11:49 WBC RBC 3.04 L Hgb 8.4 L Hct 26.1 L MCH MCHC RDW 17.5 H Plt Count Lymph % (Auto) [place] % (Auto) Eos % (Auto) Lymph # [place] # Eos # Seg Neutrophils % Seg Neutrophils # PT INR POC ABG pH POC ABG pCO2 POC ABG pO2 VBG pH Sodium 149 H Potassium Chloride 114.5 H Carbon Dioxide 21 L BUN 35 H Creatinine Glucose 127 H POC Glucose 150 H Magnesium AST ALT Alkaline Phosphatase Total Creatine Kinase NT-Pro-B Natriuret Pep Albumin Urine WBC (Auto) Crossmatch 11/20/18 11/20/18 11/21/18 18:02 23:49 06:14 WBC RBC Hgb Hct MCH MCHC RDW Plt Count Lymph % (Auto) [place] % (Auto) Eos % (Auto) Lymph # [place] # Eos # Seg Neutrophils % Seg Neutrophils # PT INR POC ABG pH POC ABG pCO2 POC ABG pO2 VBG pH Sodium Potassium Chloride Carbon Dioxide BUN Creatinine Glucose POC Glucose 131 H 137 H 133 H Magnesium AST ALT Alkaline Phosphatase Total Creatine Kinase NT-Pro-B Natriuret Pep Albumin Urine WBC (Auto) Crossmatch 11/21/18 11/21/18 11/21/18 10:00 12:09 18:04 WBC RBC Hgb Hct MCH MCHC RDW Plt Count Lymph % (Auto) [place] % (Auto) Eos % (Auto) Lymph # [place] # Eos # Seg Neutrophils % Seg Neutrophils # PT INR POC ABG pH POC ABG pCO2 POC ABG pO2 VBG pH Sodium Potassium Chloride 110.6 H Carbon Dioxide BUN 31 H Creatinine Glucose 119 H POC Glucose 116 H 126 H Magnesium AST ALT Alkaline Phosphatase Total Creatine Kinase NT-Pro-B Natriuret Pep Albumin Urine WBC (Auto) Crossmatch 11/22/18 11/22/18 11/22/18 00:14 05:47 06:23 WBC RBC Hgb Hct MCH MCHC RDW Plt Count Lymph % (Auto) [place] % (Auto) Eos % (Auto) Lymph # [place] # Eos # Seg Neutrophils % Seg Neutrophils # PT INR POC ABG pH POC ABG pCO2 POC ABG pO2 VBG pH Sodium Potassium Chloride 107.6 H Carbon Dioxide BUN 32 H Creatinine 0.7 L Glucose 116 H POC Glucose 122 H 119 H Magnesium AST ALT Alkaline Phosphatase Total Creatine Kinase NT-Pro-B Natriuret Pep Albumin Urine WBC (Auto) Crossmatch 11/22/18 11/22/18 11/22/18 08:40 12:19 17:39 WBC RBC Hgb Hct MCH MCHC RDW Plt Count Lymph % (Auto) [place] % (Auto) Eos % (Auto) Lymph # [place] # Eos # Seg Neutrophils % Seg Neutrophils # PT INR POC ABG pH POC ABG pCO2 POC ABG pO2 VBG pH Sodium Potassium Chloride Carbon Dioxide BUN Creatinine Glucose POC Glucose 150 H 111 H 108 H Magnesium AST ALT Alkaline Phosphatase Total Creatine Kinase NT-Pro-B Natriuret Pep Albumin Urine WBC (Auto) Crossmatch 11/23/18 11/23/18 11/23/18 00:36 05:37 05:56 WBC RBC Hgb Hct MCH MCHC RDW Plt Count Lymph % (Auto) [place] % (Auto) Eos % (Auto) Lymph # [place] # Eos # Seg Neutrophils % Seg Neutrophils # PT INR POC ABG pH POC ABG pCO2 POC ABG pO2 VBG pH Sodium 136 L Potassium Chloride Carbon Dioxide BUN 30 H Creatinine 0.7 L Glucose 103 H POC Glucose 125 H 122 H Magnesium 2.50 H AST ALT Alkaline Phosphatase Total Creatine Kinase NT-Pro-B Natriuret Pep Albumin Urine WBC (Auto) Crossmatch 11/23/18 11/23/18 11/23/18 11:56 17:39 23:40 WBC RBC Hgb Hct MCH MCHC RDW Plt Count Lymph % (Auto) [place] % (Auto) Eos % (Auto) Lymph # [place] # Eos # Seg Neutrophils % Seg Neutrophils # PT INR POC ABG pH POC ABG pCO2 POC ABG pO2 VBG pH Sodium Potassium Chloride Carbon Dioxide BUN Creatinine Glucose POC Glucose 121 H 113 H 117 H Magnesium AST ALT Alkaline Phosphatase Total Creatine Kinase NT-Pro-B Natriuret Pep Albumin Urine WBC (Auto) Crossmatch 11/24/18 11/24/18 11/24/18 05:13 12:00 18:13 WBC RBC Hgb Hct MCH MCHC RDW Plt Count Lymph % (Auto) [place] % (Auto) Eos % (Auto) Lymph # [place] # Eos # Seg Neutrophils % Seg Neutrophils # PT INR POC ABG pH POC ABG pCO2 POC ABG pO2 VBG pH Sodium Potassium Chloride Carbon Dioxide BUN Creatinine Glucose POC Glucose 143 H 123 H 124 H Magnesium AST ALT Alkaline Phosphatase Total Creatine Kinase NT-Pro-B Natriuret Pep Albumin Urine WBC (Auto) Crossmatch 11/24/18 11/25/18 11/25/18 23:34 05:25 05:25 WBC RBC 2.48 L Hgb 6.8 L Hct 21.2 L MCH MCHC RDW 17.7 H Plt Count Lymph % (Auto) [place] % (Auto) Eos % (Auto) Lymph # [place] # Eos # Seg Neutrophils % Seg Neutrophils # PT INR POC ABG pH POC ABG pCO2 POC ABG pO2 VBG pH Sodium Potassium Chloride 108.8 H Carbon Dioxide BUN 30 H Creatinine 0.7 L Glucose 112 H POC Glucose 115 H Magnesium AST ALT Alkaline Phosphatase Total Creatine Kinase NT-Pro-B Natriuret Pep Albumin Urine WBC (Auto) Crossmatch 11/25/18 11/25/18 11/25/18 06:46 11:15 11:28 WBC RBC Hgb 7.4 L Hct 23.0 L MCH MCHC RDW Plt Count Lymph % (Auto) [place] % (Auto) Eos % (Auto) Lymph # [place] # Eos # Seg Neutrophils % Seg Neutrophils # PT INR POC ABG pH POC ABG pCO2 POC ABG pO2 VBG pH Sodium Potassium Chloride Carbon Dioxide BUN Creatinine Glucose POC Glucose 133 H 127 H Magnesium AST ALT Alkaline Phosphatase Total Creatine Kinase NT-Pro-B Natriuret Pep Albumin Urine WBC (Auto) Crossmatch 11/25/18 11/25/18 11/25/18 15:28 17:32 23:45 WBC RBC Hgb Hct MCH MCHC RDW Plt Count Lymph % (Auto) [place] % (Auto) Eos % (Auto) Lymph # [place] # Eos # Seg Neutrophils % Seg Neutrophils # PT INR POC ABG pH POC ABG pCO2 POC ABG pO2 VBG pH Sodium Potassium Chloride Carbon Dioxide BUN Creatinine Glucose POC Glucose 115 H 130 H Magnesium AST ALT Alkaline Phosphatase Total Creatine Kinase NT-Pro-B Natriuret Pep Albumin Urine WBC (Auto) Crossmatch See Detail 11/26/18 11/26/18 11/26/18 06:13 06:20 06:20 WBC RBC 2.76 L Hgb 7.7 L Hct 23.4 L MCH MCHC RDW 17.5 H Plt Count Lymph % (Auto) [place] % (Auto) Eos % (Auto) Lymph # [place] # Eos # Seg Neutrophils % Seg Neutrophils # PT INR POC ABG pH POC ABG pCO2 POC ABG pO2 VBG pH Sodium Potassium Chloride 109.9 H Carbon Dioxide BUN 30 H Creatinine 0.6 L Glucose 121 H POC Glucose 129 H Magnesium AST ALT Alkaline Phosphatase Total Creatine Kinase NT-Pro-B Natriuret Pep Albumin Urine WBC (Auto) Crossmatch 11/26/18 11/26/18 11/27/18 12:06 16:35 06:04 WBC RBC Hgb Hct MCH MCHC RDW Plt Count Lymph % (Auto) [place] % (Auto) Eos % (Auto) Lymph # [place] # Eos # Seg Neutrophils % Seg Neutrophils # PT INR POC ABG pH POC ABG pCO2 POC ABG pO2 VBG pH Sodium Potassium Chloride Carbon Dioxide BUN Creatinine Glucose POC Glucose 139 H 107 H 126 H Magnesium AST ALT Alkaline Phosphatase Total Creatine Kinase NT-Pro-B Natriuret Pep Albumin Urine WBC (Auto) Crossmatch 11/27/18 11/27/18 11/28/18 13:14 17:47 07:03 WBC RBC Hgb Hct MCH MCHC RDW Plt Count Lymph % (Auto) [place] % (Auto) Eos % (Auto) Lymph # [place] # Eos # Seg Neutrophils % Seg Neutrophils # PT INR POC ABG pH POC ABG pCO2 POC ABG pO2 VBG pH Sodium Potassium Chloride Carbon Dioxide BUN Creatinine Glucose POC Glucose 130 H 115 H 118 H Magnesium AST ALT Alkaline Phosphatase Total Creatine Kinase NT-Pro-B Natriuret Pep Albumin Urine WBC (Auto) Crossmatch 11/28/18 11/29/18 11/29/18 11:38 00:35 04:56 WBC RBC Hgb Hct MCH MCHC RDW Plt Count Lymph % (Auto) [place] % (Auto) Eos % (Auto) Lymph # [place] # Eos # Seg Neutrophils % Seg Neutrophils # PT INR POC ABG pH POC ABG pCO2 POC ABG pO2 VBG pH Sodium Potassium Chloride Carbon Dioxide BUN Creatinine Glucose POC Glucose 126 H 107 H Magnesium AST ALT Alkaline Phosphatase Total Creatine Kinase 50 L NT-Pro-B Natriuret Pep Albumin Urine WBC (Auto) Crossmatch 11/29/18 11/29/18 11/29/18 05:49 11:46 18:17 WBC RBC Hgb Hct MCH MCHC RDW Plt Count Lymph % (Auto) [place] % (Auto) Eos % (Auto) Lymph # [place] # Eos # Seg Neutrophils % Seg Neutrophils # PT INR POC ABG pH POC ABG pCO2 POC ABG pO2 VBG pH Sodium Potassium Chloride Carbon Dioxide BUN Creatinine Glucose POC Glucose 128 H 140 H 115 H Magnesium AST ALT Alkaline Phosphatase Total Creatine Kinase NT-Pro-B Natriuret Pep Albumin Urine WBC (Auto) Crossmatch 11/30/18 11/30/18 11/30/18 00:00 03:30 03:30 WBC RBC 2.97 L Hgb 8.1 L Hct 25.5 L MCH 27 L MCHC RDW 17.7 H Plt Count Lymph % (Auto) 9.2 L [place] % (Auto) 10.0 H Eos % (Auto) 4.6 H Lymph # 1.0 L [place] # 1.1 H Eos # 0.5 H Seg Neutrophils % 75.6 H Seg Neutrophils # 8.4 H PT INR POC ABG pH POC ABG pCO2 POC ABG pO2 VBG pH Sodium Potassium Chloride Carbon Dioxide BUN 31 H Creatinine 0.7 L Glucose POC Glucose 120 H Magnesium AST ALT Alkaline Phosphatase Total Creatine Kinase NT-Pro-B Natriuret Pep Albumin Urine WBC (Auto) Crossmatch 11/30/18 11/30/1811/30/19 06:54 11:45 16:59 WBC RBC Hgb Hct MCH MCHC RDW Plt Count Lymph % (Auto) [place] % (Auto) Eos % (Auto) Lymph # [place] # Eos # Seg Neutrophils % Seg Neutrophils # PT INR POC ABG pH POC ABG pCO2 POC ABG pO2 VBG pH Sodium Potassium Chloride Carbon Dioxide BUN Creatinine Glucose POC Glucose 120 H 123 H 111 H Magnesium AST ALT Alkaline Phosphatase Total Creatine Kinase NT-Pro-B Natriuret Pep Albumin Urine WBC (Auto) Crossmatch 12/01/18 12/01/18 12/01/18 00:20 05:58 11:33 WBC RBC Hgb Hct MCH MCHC RDW Plt Count Lymph % (Auto) [place] % (Auto) Eos % (Auto) Lymph # [place] # Eos # Seg Neutrophils % Seg Neutrophils # PT INR POC ABG pH POC ABG pCO2 POC ABG pO2 VBG pH Sodium Potassium Chloride Carbon Dioxide BUN Creatinine Glucose POC Glucose 113 H 127 H 138 H Magnesium AST ALT Alkaline Phosphatase Total Creatine Kinase NT-Pro-B Natriuret Pep Albumin Urine WBC (Auto) Crossmatch 12/02/18 12/03/18 12/03/18 00:33 05:07 05:07 WBC RBC 2.93 L Hgb 8.2 L Hct 24.9 L MCH MCHC RDW 17.0 H Plt Count 470 H Lymph % (Auto) 9.3 L [place] % (Auto) 8.6 H Eos % (Auto) 5.4 H Lymph # 0.9 L [place] # Eos # 0.5 H Seg Neutrophils % 75.8 H Seg Neutrophils # PT INR POC ABG pH POC ABG pCO2 POC ABG pO2 VBG pH Sodium Potassium Chloride Carbon Dioxide BUN 30 H Creatinine 0.6 L Glucose 115 H POC Glucose 110 H Magnesium AST ALT Alkaline Phosphatase Total Creatine Kinase NT-Pro-B Natriuret Pep Albumin Urine WBC (Auto) Crossmatch 12/03/18 12/03/18 12/03/18 05:58 11:49 17:44 WBC RBC Hgb Hct MCH MCHC RDW Plt Count Lymph % (Auto) [place] % (Auto) Eos % (Auto) Lymph # [place] # Eos # Seg Neutrophils % Seg Neutrophils # PT INR POC ABG pH POC ABG pCO2 POC ABG pO2 VBG pH Sodium Potassium Chloride Carbon Dioxide BUN Creatinine Glucose POC Glucose 127 H 138 H 127 H Magnesium AST ALT Alkaline Phosphatase Total Creatine Kinase NT-Pro-B Natriuret Pep Albumin Urine WBC (Auto) Crossmatch 12/05/18 12/05/18 12/05/18 00:22 05:53 17:18 WBC RBC Hgb Hct MCH MCHC RDW Plt Count Lymph % (Auto) [place] % (Auto) Eos % (Auto) Lymph # [place] # Eos # Seg Neutrophils % Seg Neutrophils # PT INR POC ABG pH POC ABG pCO2 POC ABG pO2 VBG pH Sodium Potassium Chloride Carbon Dioxide BUN Creatinine Glucose POC Glucose 124 H 121 H 112 H Magnesium AST ALT Alkaline Phosphatase Total Creatine Kinase NT-Pro-B Natriuret Pep Albumin Urine WBC (Auto) Crossmatch 12/06/18 12/06/18 12/06/18 00:07 06:16 11:43 WBC RBC Hgb Hct MCH MCHC RDW Plt Count Lymph % (Auto) [place] % (Auto) Eos % (Auto) Lymph # [place] # Eos # Seg Neutrophils % Seg Neutrophils # PT INR POC ABG pH POC ABG pCO2 POC ABG pO2 VBG pH Sodium Potassium Chloride Carbon Dioxide BUN Creatinine Glucose POC Glucose 111 H 117 H 121 H Magnesium AST ALT Alkaline Phosphatase Total Creatine Kinase NT-Pro-B Natriuret Pep Albumin Urine WBC (Auto) Crossmatch Allied health notes reviewed: nursing
--- NOTE | 2018-12-06 13:55 | Progress Note ---
Assessment and Plan Assessment and plan: 67 YO Male Care Home Facility Resident as [facility] with HTN, CVA, Obstructive Uropathy, Diastolic CHF, Contracture, Sacral Decubitus Ulcers, [place], DM, OA, Seizure Disorder, COPD, Dementia, BPH presents to ED for evaluation. Pt is stuporous and unable to provide history. Pt history taken from ED Staff, EMS, and SNF Staff. As per staff, the patient was found to have respiratory distress upon evaluation this morning. Pt found to have pulse oximetry in the 80's. EMS notified and patient subsequently transported to [facility] for further care and evaluation. Pt seen and evaluated in ED and found to have UTI, Sepsis, Encephalopathy as well as Acute Hypoxemic Respiratory Failure. Pt initiated on NIPPV in ED with improvement in symptoms. Pt admitted to IMCU and initiated on Sepsis protocol. Prior admission on 10/01/18 reviewed. Extensive discussion with family about patients poor prognosis surgery consult appreciated ID following, Pulmonary status improved Continue isolation care Chaudhary placed by Urology please do not remove Sepsis Continue IMCU care, place on isolation, ID consult noted, patient is on IV daptomycin blood cultures with gram positive Multiple hx of MRSA, Multi organ Monitor uop q shift. ID recumbent because Synthroid Respiratory failure Supplemental oxygen, nebulizer therapy,pulse oximetry, Chest X ray, NIPPV UNABLE TO GET v/q scan Pulmonary following the patient Anemia of chronic disease Transfuse one unit PRBC hemoglobin is stable Seizure Continue current therapy, seizure precautions. UTI (urinary tract infection) IV antibiotic therapy, CBC, CMP, Urinalysis. BPH Continue Chaudhary catherter Dementia IVF resuscitation therapy, supportive care, treat sepsis. sacral pressure ulcer -infected. POA WOUND CARE CONSULT. CONTINUE ABX. Debridement done by Dr Man Amputation recommended and the daughter refused Orthopedics consulted for hip disarticulation but said transfer if needed The wound involved the bone and orthopedics consulted. DVT prophylaxis Current Visit: Yes Status: Acute Plan to address problem: SCD to BLE while in bed, Prophylactic lovenox POOR PROGNOSIS Disposition; Pending placement to SNF. History Interval history: Patient was seen and evaluated this morning, patient didn't have complaints. Hospitalist Physical - Physical exam Narrative exam: Not in cardiopulmonary distress. The patient appeared well nourished and normally developed. Vital signs as documented. Head exam is unremarkable. No scleral icterus . Neck is without jugular venous distension, thyromegaly, or carotid bruits. Lungs are clear to auscultation. Cardiac exam reveals regular rate and Rhythm. First and second heart sounds normal. No murmurs, rubs or gallops. Abdominal exam reveals normal bowel sounds, no masses, no organomegaly and no aortic enlargement. Extremities contracted extremities. PUSHCART PEDDLER: Alert and oriented. Skin; multiple decubitus ulcers, including the sacrum and the heel. - Constitutional Vitals: Temp Pulse Resp BP Pulse Ox 98.6 F 99 H 20 159/79 96 12/06/18 07:55 12/06/18 11:05 12/06/18 07:55 12/06/18 11:05 12/06/18 07:55 General appearance: Present: no acute distress Results - Labs CBC & Chem 7: 12/03/18 05:07 12/03/18 05:07 Labs: Laboratory Last Values WBC 9.4 K/mm3 (4.5-11.0) 12/03/18 05:07 RBC 2.93 M/mm3 (3.65-5.03) L 12/03/18 05:07 Hgb 8.2 gm/dl (11.8-15.2) L 12/03/18 05:07 Hct 24.9 % (35.5-45.6) L 12/03/18 05:07 MCV 85 fl (84-94) 12/03/18 05:07 MCH 28 pg (28-32) 12/03/18 05:07 MCHC 33 % (32-34) 12/03/18 05:07 RDW 17.0 % (13.2-15.2) H 12/03/18 05:07 Plt Count 470 K/mm3 (140-440) H 12/03/18 05:07 Lymph % (Auto) 9.3 % (13.4-35.0) L 12/03/18 05:07 [place]ard % (Auto) 8.6 % (0.0-7.3) H 12/03/18 05:07 Eos % (Auto) 5.4 % (0.0-4.3) H 12/03/18 05:07 Baso % (Auto) 0.9 % (0.0-1.8) 12/03/18 05:07 Lymph # 0.9 K/mm3 (1.2-5.4) L 12/03/18 05:07 Menard # 0.8 K/mm3 (0.0-0.8) 12/03/18 05:07 Eos # 0.5 K/mm3 (0.0-0.4) H 12/03/18 05:07 Baso # 0.1 K/mm3 (0.0-0.1) 12/03/18 05:07 Seg Neutrophils % 75.8 % (40.0-70.0) H 12/03/18 05:07 Seg Neutrophils # 7.1 K/mm3 (1.8-7.7) 12/03/18 05:07 PT 16.3 Sec. (12.2-14.9) H 11/01/18 14:50 INR 1.35 (0.87-1.13) H 11/01/18 14:50 POC ABG pH 7.494 (7.35-7.45) H 11/01/18 15:27 POC ABG pCO2 34.5 (35-45) L 11/01/18 15:27 POC ABG pO2 139 (80-105) H 11/01/18 15:27 POC ABG HCO3 26.5 (22-26 mml/L) 11/01/18 15:27 POC ABG Total CO2 28 (23-27mmol/L) 11/01/18 15:27 POC ABG O2 Sat 99 11/01/18 15:27 POC ABG Base Excess 3 ((-2) - (+3)mmol/L) 11/01/18 15:27 VBG pH 7.499 (7.320-7.420) H 11/01/18 14:50 50 % 11/01/18 15:27 Sodium 140 mmol/L (137-145) 12/03/18 05:07 Potassium 3.7 mmol/L (3.6-5.0) 12/03/18 05:07 Chloride 106.5 mmol/L (98-107) 12/03/18 05:07 Carbon Dioxide 23 mmol/L (22-30) 12/03/18 05:07 14 mmol/L 12/03/18 05:07 BUN 30 mg/dL (9-20) H 12/03/18 05:07 0.6 mg/dL (0.8-1.5) L 12/03/18 05:07 Estimated GFR > 60 ml/min 12/03/18 05:07 50 % 12/03/18 05:07 Glucose 115 mg/dL (75-100) H 12/03/18 05:07 POC Glucose 121 (70-105) H 12/06/18 11:43 Lactic Acid 1.80 mmol/L (0.7-2.0) 11/01/18 14:50 Calcium 9.5 mg/dL (8.4-10.2) 12/03/18 05:07 Phosphorus 2.90 mg/dL (2.5-4.5) 11/22/18 09:43 Magnesium 2.50 mg/dL (1.7-2.3) H 11/23/18 05:56 0.30 mg/dL (0.1-1.2) 11/01/18 14:50 AST 90 units/L (5-40) H 11/01/18 14:50 ALT 77 units/L (7-56) H 11/01/18 14:50 350 units/L (35-129) H 11/01/18 14:50 72 units/L (55-170) 11/30/18 00:31 NT-Pro-B Natriuret Pep 6776 pg/mL (0-900) H 11/01/18 14:50 7.9 g/dL (6.3-8.2) 11/01/18 14:50 1.6 g/dL (3.9-5) L 11/01/18 14:50 0.3 % 11/01/18 14:50 14 units/L (13-60) 11/25/18 15:07 Yellow (Yellow) 11/01/18 15:57 Turbid (Clear) 11/01/18 15:57 6.0 (5.0-7.0) 11/01/18 15:57 Ur Specific [place] 1.016 (1.003-1.030) 11/01/18 15:57 100 mg/dl mg/dL (Negative) 11/01/18 15:57 Neg mg/dL (Negative) 11/01/18 15:57 Neg mg/dL (Negative) 11/01/18 15:57 Neg (Negative) 11/01/18 15:57 Neg (Negative) 11/01/18 15:57 Neg (Negative) 11/01/18 15:57 < 2.0 mg/dL (<2.0) 11/01/18 15:57 Ur Leukocyte Esterase Mod (Negative) 11/01/18 15:57 > 182.0 /HPF (0.0-6.0) H 11/01/18 15:57 40.0 /HPF (0.0-6.0) 11/01/18 15:57 U Epithel Cells (Auto) 8.0 /HPF (0-13.0) 11/01/18 15:57 3+ /HPF 11/01/18 15:57 3+ /HPF 11/01/18 15:57 Random Vancomycin 13.9 ug/mL (0-40.0) 11/02/18 05:05 Blood Type O POSITIVE 11/25/18 15:28 Antibody Screen Negative 11/25/18 15:28 Crossmatch See Detail 11/25/18 15:28 Active Medications - Current Medications Current Medications: Generic Name Dose Route Start Last Admin Trade Name Freq PRN Reason Stop Dose Admin Acetaminophen/Hydrocodone Bitart 1 each 11/15/18 04:51 12/05/18 04:08 Benge 5/325 PO 1 each Q4H PRN Administration Pain, Moderate (4-6) Albuterol 2.5 mg 11/01/18 17:15 Proventil IH Q3HRT PRN Shortness Of Breath Albuterol/Ipratropium 1 ampul 11/28/18 20:00 12/05/18 19:33 Duoneb *Not For Prn Use* IH 1 ampul BIDRT NORA Administration Lipase/Protease/Amylase 1 each 11/03/18 17:12 12/02/18 08:40 Pancreaze 10,500 Unit FEEDTUBE 1 each PRN PRN Administration For Clogged Feeding Tube Ascorbic Acid 500 mg 11/01/18 22:00 12/06/18 11:05 Vitamin C FEEDTUBE 500 mg BID NORA Administration Atorvastatin Calcium 40 mg 11/01/18 22:00 12/05/18 22:03 Lipitor FEEDTUBE 40 mg QHS NORA Administration Carvedilol 6.25 mg 11/08/18 13:00 12/06/18 11:01 Coreg PO 6.25 mg BID NORA Administration Clonidine HCl 0.2 mg 11/05/18 17:18 12/03/18 18:33 Catapres-Tts Patch TD 0.2 mg Tu NORA Administration Enoxaparin Sodium 40 mg 11/02/18 10:00 12/06/18 11:00 Lovenox SUB-Q 40 mg QDAY@1000 NORA Administration Hydralazine HCl 10 mg 11/25/18 22:00 12/06/18 11:05 Apresoline PO 10 mg Q12HR NORA Administration Daptomycin 400 mg/ Sodium 100 mls @ 200 mls/hr 11/25/18 11:00 12/06/18 12:07 Chloride IV 12/16/18 11:29 200 mls/hr Q24H NORA Administration Protocol Levetiracetam 500 mg 11/01/18 22:00 12/06/18 11:01 Keppra FEEDTUBE 500 mg BID NORA Administration Morphine Sulfate 2 mg 11/01/18 17:15 11/30/18 21:15 Morphine IV 2 mg Q4H PRN Administration Pain, Moderate (4-6) Multivitamins 5 ml 11/02/18 10:00 12/06/18 11:00 Centrum Liq FEEDTUBE 5 ml QDAY NORA Administration Simple Syrup 15 ml 11/03/18 17:12 11/16/18 13:40 Simple Syrup FEEDTUBE 15 ml PRN PRN Administration Hypoglycemia Simple Syrup 30 ml 11/03/18 17:12 Simple Syrup FEEDTUBE PRN PRN Hypoglycemia Sodium Bicarbonate 325 mg 11/03/18 17:12 12/02/18 08:40 Sodium Bicarbonate FEEDTUBE 325 mg PRN PRN Administration For Clogged Feeding Tube Sodium Chloride 10 ml 11/01/18 22:00 12/06/18 11:09 Sodium Chloride Flush Syringe 10 Ml IV 10 ml BID NORA Administration Sodium Chloride 10 ml 11/01/18 17:15 11/23/18 04:05 Sodium Chloride Flush Syringe 10 Ml IV 10 ml PRN PRN Administration LINE FLUSH Zinc Sulfate 220 mg 11/02/18 10:00 12/06/18 11:33 Zinc Sulfate PO 220 mg DAILY NORA Administration Nutrition/Malnutrition Assess - Dietary Evaluation Nutrition/Malnutrition Findings: Nutrition Notes Start: 11/04/18 16:00 Freq: Status: Active Protocol: Document 07/12/19 15:47 RM (Rec: 11/29/18 15:48 RM [id number]) Nutrition Notes Initial or Follow up Reassessment Current Diagnosis COPD,Diabetes,Sepsis, Hypertension,Heart Failure, Stroke Other Pertinent Diagnosis Sacral PUs, UTI, Dementia Current Diet Nepro at 40 ml/hr Labs/Tests No recent labs Pertinent Medications Reviewed Height 5 ft 8 in Weight 62.4 kg [place] Body Weight (kg) 70.00 BMI 20.9 Subjective/Other Information Observed Nepro infusing at goal rate. Percent of energy/protein needs met: 100%/100% Burn Absent Trauma Absent #1 Nutrition Diagnosis Inadequate oral intake Diagnosis Progress(for reassessment Continues documentation) Is patient on ventilator? No Is Patient Ambulatory and/or Out of Bed No REE-([facility]-confined to bed) 0922.080 Calculation Used for Recommendations [facility] Additional Notes Protein Needs: 76-95g (1.2-1. 5g/kg) Fluid Needs: 1 ml/kcal Nutrition Intervention Nutrition Support: Nepro 1.8 at 40 ml/hr. Water flush of 200 mls q 4 hrs . Kcal 1,728 Protein (gm) 78 Fluid (mL) 698 Goal #1 TF tolerance Goal #2 Continue to meet at least 75% of calorie and protein needs via TF Anticipated Discharge Needs: Unable to determine at this time Follow-Up By: 12/06/18 Additional Comments Follow for TF tolerance
--- NOTE | 2018-12-06 18:35 | Progress Note ---
Assessment and Plan Cultures: Blood culture 10/01/2018 MRSA 2 of 4. Blood culture 10/03/2018 MRSA Blood culture 10/08/2018 no growth Blood culture 10/11/2018 no growth Blood culture 10/21/2018 no growth Blood culture 11/01/2018 Staph haemolyticus 2 of 4 bottles, resistent to methicillin and MRSA 1 of 4 bottles Blood culture 11/04/2018 no growth Assessment: 67 y/o male with history of HTN, CVA, Obstructive Uropathy, Contracture, Multiple Decubitus Ulcers, [place], DM, OA, Seizure Disorder, COPD, Dementia, Debility, BPH, well known to ID due to multiple admissions secondary to ducubitus ulcers infections and recurrent bacteremia, last time admitted on 10/02/2018 found with MRSA bacteremia jessica from decubitus ulcers mainly active large left trochanteric with bone exposure and sacral with bone exposure. Patient's infection was deemed incurable and hospice was recommended. Patient was discharged back to [facility] on IV vancomycin 1 gm every 48 hours for total 6 weeks ending 11/12/2018 via neck tunneled cath. Patient was readmitted on due to AMS, worsening SOB. Patient is lethargic and unable to provide history. At the AL he was found to have respiratory distress upon evaluation the morning of admission,pulse oximetry in the 80's: 1) Severe Sepsis: no fever x 24h. Etiology most likely Recurrent Staph bacteremia +/- CAUTI. 2) Staph haemolyticus and MRSA bacteremia with recent MRSA bacteremia: Blood culture 11/01/2018 Staph haemolyticus 2 of 4 bottles and MRSA 1 of 4. Source likely multiple decubitus ulcers or Neck IV central line. Patient is failing vancomycin. He has a tunneled neck cath. Recent TTE negative for vegetations. On daptomycin. 3) Recent septic shock due to polymicrobial bacteremia ESBL and carbapenem resistant E coli, MDR Proteus, Strep and E faecalis on 07/29/2018 probably from multiple infected decubitus ulcers and less likely UTI. Repeat blood cultures 07/31/2018 showed same MDR E coli 1 of 4 bottles then 08/06/2018 blood cultures showed no growth. Patient was treated with Vabomere for 14 days. 4) Multiple infected decubitus ulcers: His prognosis has been poor and hospice has been recommended several times in the past but family has declined. declined. His wounds are not curable considering his contractures, bed bound status and poor nutritional status. There was also suspicion of septic arthritis of left hip from decubitus ulcer. S/p debridement of multiple pressure ulcerations on 11/07/2018- stage 4 left hip pressure ulceration was surgically excisionally debrided of necrotic bone, stage 3 sacral, right ankle and left heel pressure ulcers were then surgically, excisionally debrided of necrotic SQ fat, stage 4 right heel, left lateral heel and right lateral leg ulcerations were surgically, excisionally debrided of necrotic SQ tissue, muscle and fascia. Dr Man recommended bilateral AKA, patient and daughter refused. Dr Man recommended Orthopedic consultation for possible left hip disarticulation as his left hip joint is crumbling and has profuse purulent drainage. 5) Recurrent UTI: patient's bright was removed home 2 weeks ago, a new bright placed here 6) Acute encephalopathy: multifactorial. 7) Acute resp failure: was on BIPAP now NC O2. EF 30-35% pericaldial and pleural effusion. 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 He needs to be on contact isolation. This cannot be cured with antibiotics. Needs to be hospice continue daptomycin at discharge will do daptomycin 400 mg IV q day for 6 weeks until 12/16/2018 Grim prognosis. Will follow. Penny Bernardo MD Infectious Diseases Molasses Preparer [facility] ([facility]) M [phone] Subjective Date of service: 12/06/18 Principal diagnosis: Severe Sepsis; Ac. Hypoxemic Resp failure; Anemia; Seizure; UTI; BPH Interval history: Patient reports no complaints Objective - Exam Narrative Exam: General appearance: alert in NAD severely contracted Eyes: anicteric sclerae, moist conjunctivae; no lid-lag; PERRLA HENT: Atraumatic; oropharynx limited Neck: Trachea midline; supple, no thyromegaly or lymphadenopathy Lungs: CTA CV: RRR Abdomen: Soft, non-tender Extremities: marked legs contractions, multiple decubitus ulcers covered with dressings +left hip wound VAC Skin: multiple skin tears Psych: no agitated. Neuro: alert - Constitutional Vitals: Vital Signs Temp Pulse Resp BP Pulse Ox 98.9 F 97 H 20 170/73 99 12/06/18 13:32 12/06/18 13:32 12/06/18 13:32 12/06/18 13:32 12/06/18 13:32 Temperature -Last 24 Hours Temperature 98.9 F Temperature 98.6 F Temperature 98.6 F Temperature 99.9 F - Labs CBC & Chem 7: 12/03/18 05:07 12/03/18 05:07 Labs: Abnormal lab results 12/06/18 12/06/18 12/06/18 Range/Units 00:07 06:16 11:43 POC Glucose 111 H 117 H 121 H (70-105)
[2018-12-06] MEDS: DUONEB *Not for PRN Use IH SCH ×2 (19:49→20:13)
[2018-12-06 21:32] LABS: BUN/Creatinine Ratio 39; Blood Urea Nitrogen 27 mg/dL (9-20); Calcium 9.5 mg/dL (8.4-10.2); Hemolysis Index 44
--- NOTE | 2018-12-07 07:10 | Progress Note ---
Assessment and Plan (1) Sepsis- severe Current Visit: Yes Status: Acute Plan to address problem: Volume resuscitation cautiously Antibiotics per ID (2) Respiratory failure Current Visit: Yes Status: Acute Qualifiers: Chronicity: acute Respiratory failure complication: hypoxia Qualified Code(s): J96.01 - Acute respiratory failure with hypoxia Plan to address problem: Supplemental oxygen wean for O2 sats >90% Bronchodilators per protocol Judicious use of IVF to prevent pulmonary edema (3) Seizure Current Visit: Yes Status: Acute Plan to address problem: Continue current therapy, seizure precautions. (4) UTI (urinary tract infection) Current Visit: Yes Status: Acute Qualifiers: Encounter type: initial encounter Plan to address problem: IV antibiotic therapy (5) Dementia Current Visit: Yes Status: Acute Qualifiers: Dementia behavioral disturbance: without behavioral disturbance Plan to address problem: Per primary (6) sacral pressure ulcer -infected. POA WOUND CARE CONTINUE ABX. (7)DVT prophylaxis Current Visit: Yes Status: Acute Plan to address problem: SCD to BLE while in bed, Prophylactic lovenox POOR PROGNOSIS Subjective Date of service: 12/07/18 Principal diagnosis: Severe Sepsis; Ac. Hypoxemic Resp failure; Anemia; Seizure; UTI; BPH Interval history: Patient is seen today for: Severe Sepsis; Acute Hypoxemic Respiratory failure; Anemia of chronic disease; Seizure; UTI (urinary tract infection); BPH; Dementia; sacral pressure ulcer -infected. POA Seen and examined at bedside; 24-hour events reviewed; nursing and respiratory care staff consulted; no adverse overnight events reported to me; resting peacefully in bed; No N/V/F/C; s/p debridment of multile pressure ulcers; Vitals, labs, medications, chart reviewed. On 3L NC, comfortable, Right chest wall tunnelled PICC line Objective Vital Signs - 12hr 12/06/18 12/06/18 12/06/18 19:51 20:04 22:00 Temperature 98.7 F Pulse Rate 100 H Pulse Rate [ 99 H Anterior Bilateral Throughout] Respiratory 18 Rate Respiratory 16 Rate [Anterior Bilateral Throughout] Blood Pressure 125/70 O2 Sat by Pulse 94 99 Oximetry 12/07/18 02:57 Temperature 99.4 F Pulse Rate 98 H Pulse Rate [ Anterior Bilateral Throughout] Respiratory 18 Rate Respiratory Rate [Anterior Bilateral Throughout] Blood Pressure 139/72 O2 Sat by Pulse 96 Oximetry Constitutional: no acute distress, alert Eyes: non-icteric ENT: oropharynx moist Neck: no lymphadenopathy, no JVD, other (mild stiffness / contracture) Effort: normal Ascultation: Bilateral: diminished breath sounds, rhonchi Percussion: Bilateral: not dull Cardiovascular: regular rate and rhythm Gastrointestinal: normoactive bowel sounds, soft, non-tender, non-distended Integumentary: rash Extremities: no cyanosis, no edema, pulses normal, other (Patient has pressure ulcer at multiple areas, including sacral area.) Neurologic: pupils equal and round, other (+ contractures) Psychiatric: other (Flat affect, appears depressed) CBC and BMP: 12/21/18 05:37 12/21/18 05:37 ABG, PT/INR, D-dimer: ABG POC ABG pH 7.494 (7.35-7.45) H 11/01/18 15:27 POC ABG pCO2 34.5 (35-45) L 11/01/18 15:27 POC ABG pO2 139 (80-105) H 11/01/18 15:27 POC ABG HCO3 26.5 (22-26 mml/L) 11/01/18 15:27 POC ABG Total CO2 28 (23-27mmol/L) 11/01/18 15:27 POC ABG O2 Sat 99 11/01/18 15:27 PT/INR, D-dimer PT 16.3 Sec. (12.2-14.9) H 11/01/18 14:50 INR 1.35 (0.87-1.13) H 11/01/18 14:50 Abnormal lab findings: Abnormal Labs 11/01/18 11/01/18 11/01/18 14:50 14:50 14:50 WBC 15.3 H RBC 2.76 L Hgb 7.9 L Hct 23.5 L MCH MCHC RDW 18.3 H Plt Count 567 H Lymph % (Auto) 6.5 L [place] % (Auto) 8.5 H Eos % (Auto) Lymph # 1.0 L [place] # 1.3 H Eos # Seg Neutrophils % 83.4 H Seg Neutrophils # 12.7 H PT 16.3 H INR 1.35 H POC ABG pH POC ABG pCO2 POC ABG pO2 VBG pH Sodium Potassium Chloride Carbon Dioxide BUN 49 H Creatinine Glucose 132 H POC Glucose Magnesium AST 90 H ALT 77 H Alkaline Phosphatase 350 H Total Creatine Kinase NT-Pro-B Natriuret Pep Albumin 1.6 L Urine WBC (Auto) Crossmatch 11/01/18 11/01/18 11/01/18 14:50 14:50 15:27 WBC RBC Hgb Hct MCH MCHC RDW Plt Count Lymph % (Auto) [place] % (Auto) Eos % (Auto) Lymph # [place] # Eos # Seg Neutrophils % Seg Neutrophils # PT INR POC ABG pH 7.494 H POC ABG pCO2 34.5 L POC ABG pO2 139 H VBG pH 7.499 H Sodium Potassium Chloride Carbon Dioxide BUN Creatinine Glucose POC Glucose Magnesium AST ALT Alkaline Phosphatase Total Creatine Kinase NT-Pro-B Natriuret Pep 6776 H Albumin Urine WBC (Auto) Crossmatch 11/01/18 11/03/18 11/03/18 15:57 03:41 03:41 WBC 12.8 H RBC 2.55 L Hgb 6.9 L Hct 22.2 L MCH 27 L MCHC 31 L RDW 17.9 H Plt Count 519 H Lymph % (Auto) [place] % (Auto) Eos % (Auto) Lymph # [place] # Eos # Seg Neutrophils % Seg Neutrophils # PT INR POC ABG pH POC ABG pCO2 POC ABG pO2 VBG pH Sodium 147 H Potassium Chloride 110.3 H Carbon Dioxide BUN 55 H Creatinine Glucose POC Glucose Magnesium AST ALT Alkaline Phosphatase Total Creatine Kinase NT-Pro-B Natriuret Pep Albumin Urine WBC (Auto) > 182.0 H Crossmatch 11/03/18 11/04/18 11/04/18 12:51 05:12 05:12 WBC 11.5 H RBC 2.94 L Hgb 8.3 L Hct 25.3 L MCH MCHC RDW 17.3 H Plt Count 514 H Lymph % (Auto) [place] % (Auto) Eos % (Auto) Lymph # [place] # Eos # Seg Neutrophils % Seg Neutrophils # PT INR POC ABG pH POC ABG pCO2 POC ABG pO2 VBG pH Sodium 147 H Potassium Chloride 112.4 H Carbon Dioxide BUN 52 H Creatinine Glucose POC Glucose Magnesium AST ALT Alkaline Phosphatase Total Creatine Kinase NT-Pro-B Natriuret Pep Albumin Urine WBC (Auto) Crossmatch See Detail 11/05/18 11/05/18 11/06/18 04:50 04:50 05:42 WBC RBC 3.03 L 2.80 L Hgb 8.7 L 7.9 L Hct 26.6 L 24.7 L MCH MCHC RDW 17.1 H 17.0 H Plt Count 502 H 478 H Lymph % (Auto) 10.4 L [place] % (Auto) 8.6 H Eos % (Auto) 4.7 H Lymph # 1.0 L [place] # Eos # 0.5 H Seg Neutrophils % 75.6 H Seg Neutrophils # PT INR POC ABG pH POC ABG pCO2 POC ABG pO2 VBG pH Sodium 149 H Potassium Chloride 114.4 H Carbon Dioxide 21 L BUN 50 H Creatinine Glucose 108 H POC Glucose Magnesium AST ALT Alkaline Phosphatase Total Creatine Kinase NT-Pro-B Natriuret Pep Albumin Urine WBC (Auto) Crossmatch 11/06/18 11/11/18 11/12/18 05:42 18:54 00:22 WBC RBC Hgb Hct MCH MCHC RDW Plt Count Lymph % (Auto) [place] % (Auto) Eos % (Auto) Lymph # [place] # Eos # Seg Neutrophils % Seg Neutrophils # PT INR POC ABG pH POC ABG pCO2 POC ABG pO2 VBG pH Sodium 149 H Potassium Chloride 113.4 H Carbon Dioxide BUN 50 H Creatinine Glucose 121 H POC Glucose 114 H 123 H Magnesium AST ALT Alkaline Phosphatase Total Creatine Kinase NT-Pro-B Natriuret Pep Albumin Urine WBC (Auto) Crossmatch 11/12/18 11/12/18 11/13/18 06:49 11:35 06:34 WBC RBC Hgb Hct MCH MCHC RDW Plt Count Lymph % (Auto) [place] % (Auto) Eos % (Auto) Lymph # [place] # Eos # Seg Neutrophils % Seg Neutrophils # PT INR POC ABG pH POC ABG pCO2 POC ABG pO2 VBG pH Sodium Potassium Chloride Carbon Dioxide BUN Creatinine Glucose POC Glucose 129 H 123 H 128 H Magnesium AST ALT Alkaline Phosphatase Total Creatine Kinase NT-Pro-B Natriuret Pep Albumin Urine WBC (Auto) Crossmatch 11/13/18 11/13/18 11/13/18 09:26 09:26 15:13 WBC RBC 3.08 L Hgb 8.6 L Hct 27.3 L MCH MCHC 31 L RDW 18.3 H Plt Count 504 H Lymph % (Auto) 11.7 L [place] % (Auto) 7.5 H Eos % (Auto) 7.0 H Lymph # [place] # Eos # 0.7 H Seg Neutrophils % 72.9 H Seg Neutrophils # PT INR POC ABG pH POC ABG pCO2 POC ABG pO2 VBG pH Sodium 153 H Potassium 6.3 H* 5.8 H Chloride 122.3 H Carbon Dioxide 21 L BUN 38 H Creatinine Glucose 112 H POC Glucose Magnesium AST ALT Alkaline Phosphatase Total Creatine Kinase NT-Pro-B Natriuret Pep Albumin Urine WBC (Auto) Crossmatch 11/13/18 11/13/18 11/14/18 22:10 23:45 13:17 WBC RBC Hgb Hct MCH MCHC RDW Plt Count Lymph % (Auto) [place] % (Auto) Eos % (Auto) Lymph # [place] # Eos # Seg Neutrophils % Seg Neutrophils # PT INR POC ABG pH POC ABG pCO2 POC ABG pO2 VBG pH Sodium 155 H Potassium 5.3 H Chloride 122.3 H Carbon Dioxide BUN 35 H Creatinine Glucose 113 H POC Glucose 111 H 142 H Magnesium AST ALT Alkaline Phosphatase Total Creatine Kinase NT-Pro-B Natriuret Pep Albumin Urine WBC (Auto) Crossmatch 11/14/18 11/15/18 11/15/18 19:08 00:31 06:45 WBC RBC Hgb Hct MCH MCHC RDW Plt Count Lymph % (Auto) [place] % (Auto) Eos % (Auto) Lymph # [place] # Eos # Seg Neutrophils % Seg Neutrophils # PT INR POC ABG pH POC ABG pCO2 POC ABG pO2 VBG pH Sodium Potassium Chloride Carbon Dioxide BUN Creatinine Glucose POC Glucose 116 H 125 H 131 H Magnesium AST ALT Alkaline Phosphatase Total Creatine Kinase NT-Pro-B Natriuret Pep Albumin Urine WBC (Auto) Crossmatch 11/15/18 11/15/18 11/15/18 07:13 07:13 19:03 WBC 13.2 H RBC 2.81 L Hgb 7.8 L Hct 24.5 L MCH MCHC RDW 18.2 H Plt Count 454 H Lymph % (Auto) 9.0 L [place] % (Auto) 7.5 H Eos % (Auto) Lymph # [place] # 1.0 H Eos # 0.5 H Seg Neutrophils % 78.8 H Seg Neutrophils # 10.4 H PT INR POC ABG pH POC ABG pCO2 POC ABG pO2 VBG pH Sodium 149 H Potassium 5.2 H Chloride 117.2 H Carbon Dioxide BUN 38 H Creatinine Glucose 114 H POC Glucose 141 H Magnesium AST ALT Alkaline Phosphatase Total Creatine Kinase NT-Pro-B Natriuret Pep Albumin Urine WBC (Auto) Crossmatch 11/16/18 11/16/18 11/16/18 01:15 01:15 06:45 WBC RBC Hgb Hct MCH MCHC RDW Plt Count Lymph % (Auto) [place] % (Auto) Eos % (Auto) Lymph # [place] # Eos # Seg Neutrophils % Seg Neutrophils # PT INR POC ABG pH POC ABG pCO2 POC ABG pO2 VBG pH Sodium Potassium 5.3 H Chloride Carbon Dioxide BUN Creatinine Glucose POC Glucose 129 H Magnesium 2.60 H AST ALT Alkaline Phosphatase Total Creatine Kinase NT-Pro-B Natriuret Pep Albumin Urine WBC (Auto) Crossmatch 11/16/18 11/16/18 11/17/18 13:20 18:02 00:16 WBC RBC Hgb Hct MCH MCHC RDW Plt Count Lymph % (Auto) [place] % (Auto) Eos % (Auto) Lymph # [place] # Eos # Seg Neutrophils % Seg Neutrophils # PT INR POC ABG pH POC ABG pCO2 POC ABG pO2 VBG pH Sodium Potassium Chloride Carbon Dioxide BUN Creatinine Glucose POC Glucose 130 H 127 H 120 H Magnesium AST ALT Alkaline Phosphatase Total Creatine Kinase NT-Pro-B Natriuret Pep Albumin Urine WBC (Auto) Crossmatch 11/17/18 11/17/18 11/17/18 05:48 08:02 08:02 WBC RBC Hgb 7.5 L Hct 23.5 L MCH MCHC RDW Plt Count Lymph % (Auto) [place] % (Auto) Eos % (Auto) Lymph # [place] # Eos # Seg Neutrophils % Seg Neutrophils # PT INR POC ABG pH POC ABG pCO2 POC ABG pO2 VBG pH Sodium Potassium Chloride 110.1 H Carbon Dioxide 21 L BUN 38 H Creatinine Glucose 121 H POC Glucose 130 H Magnesium AST ALT Alkaline Phosphatase Total Creatine Kinase NT-Pro-B Natriuret Pep Albumin Urine WBC (Auto) Crossmatch 11/17/18 11/17/18 11/18/18 12:17 16:48 06:00 WBC RBC Hgb Hct MCH MCHC RDW Plt Count Lymph % (Auto) [place] % (Auto) Eos % (Auto) Lymph # [place] # Eos # Seg Neutrophils % Seg Neutrophils # PT INR POC ABG pH POC ABG pCO2 POC ABG pO2 VBG pH Sodium Potassium Chloride Carbon Dioxide BUN Creatinine Glucose POC Glucose 140 H 120 H 137 H Magnesium AST ALT Alkaline Phosphatase Total Creatine Kinase NT-Pro-B Natriuret Pep Albumin Urine WBC (Auto) Crossmatch 11/19/18 11/19/18 11/19/18 00:20 05:35 06:11 WBC RBC Hgb Hct MCH MCHC RDW Plt Count Lymph % (Auto) [place] % (Auto) Eos % (Auto) Lymph # [place] # Eos # Seg Neutrophils % Seg Neutrophils # PT INR POC ABG pH POC ABG pCO2 POC ABG pO2 VBG pH Sodium Potassium Chloride Carbon Dioxide BUN Creatinine Glucose POC Glucose 111 H 126 H Magnesium AST ALT Alkaline Phosphatase Total Creatine Kinase 53 L NT-Pro-B Natriuret Pep Albumin Urine WBC (Auto) Crossmatch 11/19/18 11/19/18 11/20/18 11:37 23:43 06:52 WBC RBC Hgb Hct MCH MCHC RDW Plt Count Lymph % (Auto) [place] % (Auto) Eos % (Auto) Lymph # [place] # Eos # Seg Neutrophils % Seg Neutrophils # PT INR POC ABG pH POC ABG pCO2 POC ABG pO2 VBG pH Sodium Potassium Chloride Carbon Dioxide BUN Creatinine Glucose POC Glucose 139 H 145 H 125 H Magnesium AST ALT Alkaline Phosphatase Total Creatine Kinase NT-Pro-B Natriuret Pep Albumin Urine WBC (Auto) Crossmatch 11/20/18 11/20/18 11/20/18 09:55 09:55 11:49 WBC RBC 3.04 L Hgb 8.4 L Hct 26.1 L MCH MCHC RDW 17.5 H Plt Count Lymph % (Auto) [place] % (Auto) Eos % (Auto) Lymph # [place] # Eos # Seg Neutrophils % Seg Neutrophils # PT INR POC ABG pH POC ABG pCO2 POC ABG pO2 VBG pH Sodium 149 H Potassium Chloride 114.5 H Carbon Dioxide 21 L BUN 35 H Creatinine Glucose 127 H POC Glucose 150 H Magnesium AST ALT Alkaline Phosphatase Total Creatine Kinase NT-Pro-B Natriuret Pep Albumin Urine WBC (Auto) Crossmatch 11/20/18 11/20/18 11/21/18 18:02 23:49 06:14 WBC RBC Hgb Hct MCH MCHC RDW Plt Count Lymph % (Auto) [place] % (Auto) Eos % (Auto) Lymph # [place] # Eos # Seg Neutrophils % Seg Neutrophils # PT INR POC ABG pH POC ABG pCO2 POC ABG pO2 VBG pH Sodium Potassium Chloride Carbon Dioxide BUN Creatinine Glucose POC Glucose 131 H 137 H 133 H Magnesium AST ALT Alkaline Phosphatase Total Creatine Kinase NT-Pro-B Natriuret Pep Albumin Urine WBC (Auto) Crossmatch 11/21/18 11/21/18 11/21/18 10:00 12:09 18:04 WBC RBC Hgb Hct MCH MCHC RDW Plt Count Lymph % (Auto) [place] % (Auto) Eos % (Auto) Lymph # [place] # Eos # Seg Neutrophils % Seg Neutrophils # PT INR POC ABG pH POC ABG pCO2 POC ABG pO2 VBG pH Sodium Potassium Chloride 110.6 H Carbon Dioxide BUN 31 H Creatinine Glucose 119 H POC Glucose 116 H 126 H Magnesium AST ALT Alkaline Phosphatase Total Creatine Kinase NT-Pro-B Natriuret Pep Albumin Urine WBC (Auto) Crossmatch 11/22/18 11/22/18 11/22/18 00:14 05:47 06:23 WBC RBC Hgb Hct MCH MCHC RDW Plt Count Lymph % (Auto) [place] % (Auto) Eos % (Auto) Lymph # [place] # Eos # Seg Neutrophils % Seg Neutrophils # PT INR POC ABG pH POC ABG pCO2 POC ABG pO2 VBG pH Sodium Potassium Chloride 107.6 H Carbon Dioxide BUN 32 H Creatinine 0.7 L Glucose 116 H POC Glucose 122 H 119 H Magnesium AST ALT Alkaline Phosphatase Total Creatine Kinase NT-Pro-B Natriuret Pep Albumin Urine WBC (Auto) Crossmatch 11/22/18 11/22/18 11/22/18 08:40 12:19 17:39 WBC RBC Hgb Hct MCH MCHC RDW Plt Count Lymph % (Auto) [place] % (Auto) Eos % (Auto) Lymph # [place] # Eos # Seg Neutrophils % Seg Neutrophils # PT INR POC ABG pH POC ABG pCO2 POC ABG pO2 VBG pH Sodium Potassium Chloride Carbon Dioxide BUN Creatinine Glucose POC Glucose 150 H 111 H 108 H Magnesium AST ALT Alkaline Phosphatase Total Creatine Kinase NT-Pro-B Natriuret Pep Albumin Urine WBC (Auto) Crossmatch 11/23/18 11/23/18 11/23/18 00:36 05:37 05:56 WBC RBC Hgb Hct MCH MCHC RDW Plt Count Lymph % (Auto) [place] % (Auto) Eos % (Auto) Lymph # [place] # Eos # Seg Neutrophils % Seg Neutrophils # PT INR POC ABG pH POC ABG pCO2 POC ABG pO2 VBG pH Sodium 136 L Potassium Chloride Carbon Dioxide BUN 30 H Creatinine 0.7 L Glucose 103 H POC Glucose 125 H 122 H Magnesium 2.50 H AST ALT Alkaline Phosphatase Total Creatine Kinase NT-Pro-B Natriuret Pep Albumin Urine WBC (Auto) Crossmatch 11/23/18 11/23/18 11/23/18 11:56 17:39 23:40 WBC RBC Hgb Hct MCH MCHC RDW Plt Count Lymph % (Auto) [place] % (Auto) Eos % (Auto) Lymph # [place] # Eos # Seg Neutrophils % Seg Neutrophils # PT INR POC ABG pH POC ABG pCO2 POC ABG pO2 VBG pH Sodium Potassium Chloride Carbon Dioxide BUN Creatinine Glucose POC Glucose 121 H 113 H 117 H Magnesium AST ALT Alkaline Phosphatase Total Creatine Kinase NT-Pro-B Natriuret Pep Albumin Urine WBC (Auto) Crossmatch 11/24/18 11/24/18 11/24/18 05:13 12:00 18:13 WBC RBC Hgb Hct MCH MCHC RDW Plt Count Lymph % (Auto) [place] % (Auto) Eos % (Auto) Lymph # [place] # Eos # Seg Neutrophils % Seg Neutrophils # PT INR POC ABG pH POC ABG pCO2 POC ABG pO2 VBG pH Sodium Potassium Chloride Carbon Dioxide BUN Creatinine Glucose POC Glucose 143 H 123 H 124 H Magnesium AST ALT Alkaline Phosphatase Total Creatine Kinase NT-Pro-B Natriuret Pep Albumin Urine WBC (Auto) Crossmatch 11/24/18 11/25/18 11/25/18 23:34 05:25 05:25 WBC RBC 2.48 L Hgb 6.8 L Hct 21.2 L MCH MCHC RDW 17.7 H Plt Count Lymph % (Auto) [place] % (Auto) Eos % (Auto) Lymph # [place] # Eos # Seg Neutrophils % Seg Neutrophils # PT INR POC ABG pH POC ABG pCO2 POC ABG pO2 VBG pH Sodium Potassium Chloride 108.8 H Carbon Dioxide BUN 30 H Creatinine 0.7 L Glucose 112 H POC Glucose 115 H Magnesium AST ALT Alkaline Phosphatase Total Creatine Kinase NT-Pro-B Natriuret Pep Albumin Urine WBC (Auto) Crossmatch 11/25/18 11/25/18 11/25/18 06:46 11:15 11:28 WBC RBC Hgb 7.4 L Hct 23.0 L MCH MCHC RDW Plt Count Lymph % (Auto) [place] % (Auto) Eos % (Auto) Lymph # [place] # Eos # Seg Neutrophils % Seg Neutrophils # PT INR POC ABG pH POC ABG pCO2 POC ABG pO2 VBG pH Sodium Potassium Chloride Carbon Dioxide BUN Creatinine Glucose POC Glucose 133 H 127 H Magnesium AST ALT Alkaline Phosphatase Total Creatine Kinase NT-Pro-B Natriuret Pep Albumin Urine WBC (Auto) Crossmatch 11/25/18 11/25/18 11/25/18 15:28 17:32 23:45 WBC RBC Hgb Hct MCH MCHC RDW Plt Count Lymph % (Auto) [place] % (Auto) Eos % (Auto) Lymph # [place] # Eos # Seg Neutrophils % Seg Neutrophils # PT INR POC ABG pH POC ABG pCO2 POC ABG pO2 VBG pH Sodium Potassium Chloride Carbon Dioxide BUN Creatinine Glucose POC Glucose 115 H 130 H Magnesium AST ALT Alkaline Phosphatase Total Creatine Kinase NT-Pro-B Natriuret Pep Albumin Urine WBC (Auto) Crossmatch See Detail 11/26/18 11/26/18 11/26/18 06:13 06:20 06:20 WBC RBC 2.76 L Hgb 7.7 L Hct 23.4 L MCH MCHC RDW 17.5 H Plt Count Lymph % (Auto) [place] % (Auto) Eos % (Auto) Lymph # [place] # Eos # Seg Neutrophils % Seg Neutrophils # PT INR POC ABG pH POC ABG pCO2 POC ABG pO2 VBG pH Sodium Potassium Chloride 109.9 H Carbon Dioxide BUN 30 H Creatinine 0.6 L Glucose 121 H POC Glucose 129 H Magnesium AST ALT Alkaline Phosphatase Total Creatine Kinase NT-Pro-B Natriuret Pep Albumin Urine WBC (Auto) Crossmatch 11/26/18 11/26/18 11/27/18 12:06 16:35 06:04 WBC RBC Hgb Hct MCH MCHC RDW Plt Count Lymph % (Auto) [place] % (Auto) Eos % (Auto) Lymph # [place] # Eos # Seg Neutrophils % Seg Neutrophils # PT INR POC ABG pH POC ABG pCO2 POC ABG pO2 VBG pH Sodium Potassium Chloride Carbon Dioxide BUN Creatinine Glucose POC Glucose 139 H 107 H 126 H Magnesium AST ALT Alkaline Phosphatase Total Creatine Kinase NT-Pro-B Natriuret Pep Albumin Urine WBC (Auto) Crossmatch 11/27/18 11/27/18 11/28/18 13:14 17:47 07:03 WBC RBC Hgb Hct MCH MCHC RDW Plt Count Lymph % (Auto) [place] % (Auto) Eos % (Auto) Lymph # [place] # Eos # Seg Neutrophils % Seg Neutrophils # PT INR POC ABG pH POC ABG pCO2 POC ABG pO2 VBG pH Sodium Potassium Chloride Carbon Dioxide BUN Creatinine Glucose POC Glucose 130 H 115 H 118 H Magnesium AST ALT Alkaline Phosphatase Total Creatine Kinase NT-Pro-B Natriuret Pep Albumin Urine WBC (Auto) Crossmatch 11/28/18 11/29/18 11/29/18 11:38 00:35 04:56 WBC RBC Hgb Hct MCH MCHC RDW Plt Count Lymph % (Auto) [place] % (Auto) Eos % (Auto) Lymph # [place] # Eos # Seg Neutrophils % Seg Neutrophils # PT INR POC ABG pH POC ABG pCO2 POC ABG pO2 VBG pH Sodium Potassium Chloride Carbon Dioxide BUN Creatinine Glucose POC Glucose 126 H 107 H Magnesium AST ALT Alkaline Phosphatase Total Creatine Kinase 50 L NT-Pro-B Natriuret Pep Albumin Urine WBC (Auto) Crossmatch 11/29/18 11/29/18 11/29/18 05:49 11:46 18:17 WBC RBC Hgb Hct MCH MCHC RDW Plt Count Lymph % (Auto) [place] % (Auto) Eos % (Auto) Lymph # [place] # Eos # Seg Neutrophils % Seg Neutrophils # PT INR POC ABG pH POC ABG pCO2 POC ABG pO2 VBG pH Sodium Potassium Chloride Carbon Dioxide BUN Creatinine Glucose POC Glucose 128 H 140 H 115 H Magnesium AST ALT Alkaline Phosphatase Total Creatine Kinase NT-Pro-B Natriuret Pep Albumin Urine WBC (Auto) Crossmatch 11/30/18 11/30/18 11/30/18 00:00 03:30 03:30 WBC RBC 2.97 L Hgb 8.1 L Hct 25.5 L MCH 27 L MCHC RDW 17.7 H Plt Count Lymph % (Auto) 9.2 L [place] % (Auto) 10.0 H Eos % (Auto) 4.6 H Lymph # 1.0 L [place] # 1.1 H Eos # 0.5 H Seg Neutrophils % 75.6 H Seg Neutrophils # 8.4 H PT INR POC ABG pH POC ABG pCO2 POC ABG pO2 VBG pH Sodium Potassium Chloride Carbon Dioxide BUN 31 H Creatinine 0.7 L Glucose POC Glucose 120 H Magnesium AST ALT Alkaline Phosphatase Total Creatine Kinase NT-Pro-B Natriuret Pep Albumin Urine WBC (Auto) Crossmatch 11/30/18 11/30/18 11/30/18 06:54 11:45 16:59 WBC RBC Hgb Hct MCH MCHC RDW Plt Count Lymph % (Auto) [place] % (Auto) Eos % (Auto) Lymph # [place] # Eos # Seg Neutrophils % Seg Neutrophils # PT INR POC ABG pH POC ABG pCO2 POC ABG pO2 VBG pH Sodium Potassium Chloride Carbon Dioxide BUN Creatinine Glucose POC Glucose 120 H 123 H 111 H Magnesium AST ALT Alkaline Phosphatase Total Creatine Kinase NT-Pro-B Natriuret Pep Albumin Urine WBC (Auto) Crossmatch 12/01/18 12/01/18 12/01/18 00:20 05:58 11:33 WBC RBC Hgb Hct MCH MCHC RDW Plt Count Lymph % (Auto) [place] % (Auto) Eos % (Auto) Lymph # [place] # Eos # Seg Neutrophils % Seg Neutrophils # PT INR POC ABG pH POC ABG pCO2 POC ABG pO2 VBG pH Sodium Potassium Chloride Carbon Dioxide BUN Creatinine Glucose POC Glucose 113 H 127 H 138 H Magnesium AST ALT Alkaline Phosphatase Total Creatine Kinase NT-Pro-B Natriuret Pep Albumin Urine WBC (Auto) Crossmatch 12/02/18 12/03/18 12/03/18 00:33 05:07 05:07 WBC RBC 2.93 L Hgb 8.2 L Hct 24.9 L MCH MCHC RDW 17.0 H Plt Count 470 H Lymph % (Auto) 9.3 L [place] % (Auto) 8.6 H Eos % (Auto) 5.4 H Lymph # 0.9 L [place] # Eos # 0.5 H Seg Neutrophils % 75.8 H Seg Neutrophils # PT INR POC ABG pH POC ABG pCO2 POC ABG pO2 VBG pH Sodium Potassium Chloride Carbon Dioxide BUN 30 H Creatinine 0.6 L Glucose 115 H POC Glucose 110 H Magnesium AST ALT Alkaline Phosphatase Total Creatine Kinase NT-Pro-B Natriuret Pep Albumin Urine WBC (Auto) Crossmatch 12/03/18 12/03/18 12/03/18 05:58 11:49 17:44 WBC RBC Hgb Hct MCH MCHC RDW Plt Count Lymph % (Auto) [place] % (Auto) Eos % (Auto) Lymph # [place] # Eos # Seg Neutrophils % Seg Neutrophils # PT INR POC ABG pH POC ABG pCO2 POC ABG pO2 VBG pH Sodium Potassium Chloride Carbon Dioxide BUN Creatinine Glucose POC Glucose 127 H 138 H 127 H Magnesium AST ALT Alkaline Phosphatase Total Creatine Kinase NT-Pro-B Natriuret Pep Albumin Urine WBC (Auto) Crossmatch 12/05/18 12/05/18 12/05/18 00:22 05:53 17:18 WBC RBC Hgb Hct MCH MCHC RDW Plt Count Lymph % (Auto) [place] % (Auto) Eos % (Auto) Lymph # [place] # Eos # Seg Neutrophils % Seg Neutrophils # PT INR POC ABG pH POC ABG pCO2 POC ABG pO2 VBG pH Sodium Potassium Chloride Carbon Dioxide BUN Creatinine Glucose POC Glucose 124 H 121 H 112 H Magnesium AST ALT Alkaline Phosphatase Total Creatine Kinase NT-Pro-B Natriuret Pep Albumin Urine WBC (Auto) Crossmatch 12/06/18 12/06/18 12/06/18 00:07 06:16 11:43 WBC RBC Hgb Hct MCH MCHC RDW Plt Count Lymph % (Auto) [place] % (Auto) Eos % (Auto) Lymph # [place] # Eos # Seg Neutrophils % Seg Neutrophils # PT INR POC ABG pH POC ABG pCO2 POC ABG pO2 VBG pH Sodium Potassium Chloride Carbon Dioxide BUN Creatinine Glucose POC Glucose 111 H 117 H 121 H Magnesium AST ALT Alkaline Phosphatase Total Creatine Kinase NT-Pro-B Natriuret Pep Albumin Urine WBC (Auto) Crossmatch 12/06/18 12/07/18 20:57 06:41 WBC RBC Hgb Hct MCH MCHC RDW Plt Count Lymph % (Auto) Hoke % (Auto) Eos % (Auto) Lymph # Hoke # Eos # Seg Neutrophils % Seg Neutrophils # PT INR POC ABG pH POC ABG pCO2 POC ABG pO2 VBG pH Sodium Potassium Chloride 107.2 H Carbon Dioxide BUN 27 H Creatinine 0.7 L Glucose POC Glucose 128 H Magnesium 2.50 H AST ALT Alkaline Phosphatase Total Creatine Kinase NT-Pro-B Natriuret Pep Albumin Urine WBC (Auto) Crossmatch Allied health notes reviewed: nursing
[2018-12-07] MEDS: DUONEB *Not for PRN Use IH SCH ×2 (08:27→20:24)
[2018-12-07] MEDS: DAPTOMYCIN IV SCH (10:30)
[2018-12-07] MEDS: NACL 0.9% IV SCH (10:30)
[2018-12-07] MEDS: COREG PO SCH ×2 (10:30→21:48)
[2018-12-07] MEDS: LOVENOX SUB-Q SCH (10:31)
[2018-12-07] MEDS: KEPPRA FEEDTUBE SCH ×2 (10:32→21:49)
[2018-12-07] MEDS: Centrum Liq FEEDTUBE SCH (10:32)
[2018-12-07] MEDS: ZINC SULFATE PO SCH (10:32)
[2018-12-07] MEDS: APRESOLINE PO SCH ×2 (10:32→21:48)
[2018-12-07] MEDS: VITAMIN C FEEDTUBE SCH ×2 (10:32→21:48)
[2018-12-07] MEDS: SODIUM CHLORIDE FLUSH SYRINGE 10 ML IV SCH ×2 (10:33→21:49)
--- NOTE | 2018-12-07 11:52 | Progress Note ---
Assessment and Plan Assessment and plan: 67 YO Male [facility]Way Facility Resident as [facility] with HTN, CVA, Obstructive Uropathy, Diastolic CHF, Contracture, Sacral Decubitus Ulcers, [place], DM, OA, Seizure Disorder, COPD, Dementia, BPH presents to ED for evaluation. Pt is stuporous and unable to provide history. Pt history taken from ED Staff, EMS, and SNF Staff. As per staff, the patient was found to have respiratory distress upon evaluation this morning. Pt found to have pulse oximetry in the 80's. EMS notified and patient subsequently transported to [facility] for further care and evaluation. Pt seen and evaluated in ED and found to have UTI, Sepsis, Encephalopathy as well as Acute Hypoxemic Respiratory Failure. Pt initiated on NIPPV in ED with improvement in symptoms. Pt admitted to IMCU and initiated on Sepsis protocol. Prior admission on 10/01/18 reviewed. Extensive discussion with family about patients poor prognosis surgery consult appreciated ID following, Pulmonary status improved Continue isolation care Chaudhary placed by Urology please do not remove Sepsis Continue IMCU care, place on isolation, ID consult noted, patient is on IV daptomycin blood cultures with gram positive Multiple hx of MRSA, Multi organ Monitor uop q shift. ID recumbent because Synthroid Respiratory failure Supplemental oxygen, nebulizer therapy,pulse oximetry, Chest X ray, NIPPV UNABLE TO GET v/q scan Pulmonary following the patient Anemia of chronic disease Transfuse one unit PRBC hemoglobin is stable Seizure Continue current therapy, seizure precautions. UTI (urinary tract infection) IV antibiotic therapy, CBC, CMP, Urinalysis. BPH Continue Chaudhary catherter Dementia IVF resuscitation therapy, supportive care, treat sepsis. sacral pressure ulcer -infected. POA WOUND CARE CONSULT. CONTINUE ABX. Debridement done by Dr Man Amputation recommended and the daughter refused Orthopedics consulted for hip disarticulation but said transfer if needed The wound involved the bone and orthopedics consulted. DVT prophylaxis Current Visit: Yes Status: Acute Plan to address problem: SCD to BLE while in bed, Prophylactic lovenox POOR PROGNOSIS Disposition; Pending placement to SNF. History Interval history: Patient was seen and evaluated this morning, patient didn't have complaints. Hospitalist Physical - Physical exam Narrative exam: Not in cardiopulmonary distress. The patient appeared well nourished and normally developed. Vital signs as documented. Head exam is unremarkable. No scleral icterus . Neck is without jugular venous distension, thyromegaly, or carotid bruits. Lungs are clear to auscultation. Cardiac exam reveals regular rate and Rhythm. First and second heart sounds normal. No murmurs, rubs or gallops. Abdominal exam reveals normal bowel sounds, no masses, no organomegaly and no aortic enlargement. Extremities contracted extremities. 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 Skin; multiple decubitus ulcers, including the sacrum and the heel. - Constitutional Vitals: Temp Pulse Resp BP Pulse Ox 98.6 F 108 H 18 131/55 93 12/07/18 08:04 12/07/18 10:30 12/07/18 09:02 12/07/18 10:30 12/07/18 08:27 General appearance: Present: no acute distress Results - Labs CBC & Chem 7: 12/03/18 05:07 12/06/18 20:57 Labs: Laboratory Last Values WBC 9.4 K/mm3 (4.5-11.0) 12/03/18 05:07 RBC 2.93 M/mm3 (3.65-5.03) L 12/03/18 05:07 Hgb 8.2 gm/dl (11.8-15.2) L 12/03/18 05:07 Hct 24.9 % (35.5-45.6) L 12/03/18 05:07 MCV 85 fl (84-94) 12/03/18 05:07 MCH 28 pg (28-32) 12/03/18 05:07 MCHC 33 % (32-34) 12/03/18 05:07 RDW 17.0 % (13.2-15.2) H 12/03/18 05:07 Plt Count 470 K/mm3 (140-440) H 12/03/18 05:07 Lymph % (Auto) 9.3 % (13.4-35.0) L 12/03/18 05:07 [place] % (Auto) 8.6 % (0.0-7.3) H 12/03/18 05:07 Eos % (Auto) 5.4 % (0.0-4.3) H 12/03/18 05:07 Baso % (Auto) 0.9 % (0.0-1.8) 12/03/18 05:07 Lymph # 0.9 K/mm3 (1.2-5.4) L 12/03/18 05:07 [place] # 0.8 K/mm3 (0.0-0.8) 12/03/18 05:07 Eos # 0.5 K/mm3 (0.0-0.4) H 12/03/18 05:07 Baso # 0.1 K/mm3 (0.0-0.1) 12/03/18 05:07 Seg Neutrophils % 75.8 % (40.0-70.0) H 12/03/18 05:07 Seg Neutrophils # 7.1 K/mm3 (1.8-7.7) 12/03/18 05:07 PT 16.3 Sec. (12.2-14.9) H 11/01/18 14:50 INR 1.35 (0.87-1.13) H 11/01/18 14:50 POC ABG pH 7.494 (7.35-7.45) H 11/01/18 15:27 POC ABG pCO2 34.5 (35-45) L 11/01/18 15:27 POC ABG pO2 139 (80-105) H 11/01/18 15:27 POC ABG HCO3 26.5 (22-26 mml/L) 11/01/18 15:27 POC ABG Total CO2 28 (23-27mmol/L) 11/01/18 15:27 POC ABG O2 Sat 99 11/01/18 15:27 POC ABG Base Excess 3 ((-2) - (+3)mmol/L) 11/01/18 15:27 VBG pH 7.499 (7.320-7.420) H 11/01/18 14:50 50 % 11/01/18 15:27 Sodium 141 mmol/L (137-145) 12/06/18 20:57 Potassium 4.0 mmol/L (3.6-5.0) 12/06/18 20:57 Chloride 107.2 mmol/L (98-107) H 12/06/18 20:57 Carbon Dioxide 22 mmol/L (22-30) 12/06/18 20:57 16 mmol/L 12/06/18 20:57 BUN 27 mg/dL (9-20) H 12/06/18 20:57 0.7 mg/dL (0.8-1.5) L 12/06/18 20:57 Estimated GFR > 60 ml/min 12/06/18 20:57 39 % 12/06/18 20:57 Glucose 89 mg/dL (75-100) 12/06/18 20:57 POC Glucose 128 (70-105) H 12/07/18 06:41 Lactic Acid 1.80 mmol/L (0.7-2.0) 11/01/18 14:50 Calcium 9.5 mg/dL (8.4-10.2) 12/06/18 20:57 Phosphorus 2.90 mg/dL (2.5-4.5) 11/22/18 09:43 Magnesium 2.50 mg/dL (1.7-2.3) H 12/06/18 20:57 0.30 mg/dL (0.1-1.2) 11/01/18 14:50 AST 90 units/L (5-40) H 11/01/18 14:50 ALT 77 units/L (7-56) H 11/01/18 14:50 350 units/L (35-129) H 11/01/18 14:50 72 units/L (55-170) 11/30/18 00:31 NT-Pro-B Natriuret Pep 6776 pg/mL (0-900) H 11/01/18 14:50 7.9 g/dL (6.3-8.2) 11/01/18 14:50 1.6 g/dL (3.9-5) L 11/01/18 14:50 0.3 % 11/01/18 14:50 14 units/L (13-60) 11/25/18 15:07 Yellow (Yellow) 11/01/18 15:57 Turbid (Clear) 11/01/18 15:57 6.0 (5.0-7.0) 11/01/18 15:57 Ur Specific [place] 1.016 (1.003-1.030) 11/01/18 15:57 100 mg/dl mg/dL (Negative) 11/01/18 15:57 Neg mg/dL (Negative) 11/01/18 15:57 Neg mg/dL (Negative) 11/01/18 15:57 Neg (Negative) 11/01/18 15:57 Neg (Negative) 11/01/18 15:57 Neg (Negative) 11/01/18 15:57 < 2.0 mg/dL (<2.0) 11/01/18 15:57 Ur Leukocyte Esterase Mod (Negative) 11/01/18 15:57 > 182.0 /HPF (0.0-6.0) H 11/01/18 15:57 40.0 /HPF (0.0-6.0) 11/01/18 15:57 U Epithel Cells (Auto) 8.0 /HPF (0-13.0) 11/01/18 15:57 3+ /HPF 11/01/18 15:57 3+ /HPF 11/01/18 15:57 Random Vancomycin 13.9 ug/mL (0-40.0) 11/02/18 05:05 Blood Type O POSITIVE 11/25/18 15:28 Antibody Screen Negative 11/25/18 15:28 Crossmatch See Detail 11/25/18 15:28 Active Medications - Current Medications Current Medications: Generic Name Dose Route Start Last Admin Trade Name Freq PRN Reason Stop Dose Admin Acetaminophen/Hydrocodone Bitart 1 each 11/15/18 04:51 12/05/18 04:08 [place] 5/325 PO 1 each Q4H PRN Administration Pain, Moderate (4-6) Albuterol 2.5 mg 11/01/18 17:15 Proventil IH Q3HRT PRN Shortness Of Breath Albuterol/Ipratropium 1 ampul 11/28/18 20:00 12/07/18 08:27 Duoneb *Not For Prn Use* IH 1 ampul BIDRT NORA Administration Lipase/Protease/Amylase 1 each 11/03/18 17:12 12/02/18 08:40 Pancre[place] 10,500 Unit FEEDTUBE 1 each PRN PRN Administration For Clogged Feeding Tube Ascorbic Acid 500 mg 11/01/18 22:00 12/07/18 10:32 Vitamin C FEEDTUBE 500 mg BID NORA Administration Atorvastatin Calcium 40 mg 11/01/18 22:00 12/06/18 23:03 Lipitor FEEDTUBE 40 mg QHS NORA Administration Carvedilol 6.25 mg 11/08/18 13:00 12/07/18 10:30 Coreg PO 6.25 mg BID NORA Administration Clonidine HCl 0.2 mg 11/05/18 17:18 12/03/18 18:33 Catapres-Tts Patch TD 0.2 mg Tu NORA Administration Enoxaparin Sodium 40 mg 11/02/18 10:00 12/07/18 10:31 Lovenox SUB-Q 40 mg QDAY@1000 NORA Administration Hydralazine HCl 10 mg 11/25/18 22:00 12/07/18 10:32 Apresoline PO 10 mg Q12HR NORA Administration Daptomycin 400 mg/ Sodium 100 mls @ 200 mls/hr 11/25/18 11:00 12/07/18 10:30 Chloride IV 12/16/18 11:29 200 mls/hr Q24H NORA Administration Protocol Levetiracetam 500 mg 11/01/18 22:00 12/07/18 10:32 Keppra FEEDTUBE 500 mg BID NORA Administration Morphine Sulfate 2 mg 11/01/18 17:15 11/30/18 21:15 Morphine IV 2 mg Q4H PRN Administration Pain, Moderate (4-6) Multivitamins 5 ml 11/02/18 10:00 12/07/18 10:32 Centrum Liq FEEDTUBE 5 ml QDAY NORA Administration Simple Syrup 15 ml 11/03/18 17:12 11/16/18 13:40 Simple Syrup FEEDTUBE 15 ml PRN PRN Administration Hypoglycemia Simple Syrup 30 ml 11/03/18 17:12 Simple Syrup FEEDTUBE PRN PRN Hypoglycemia Sodium Bicarbonate 325 mg 11/03/18 17:12 12/02/18 08:40 Sodium Bicarbonate FEEDTUBE 325 mg PRN PRN Administration For Clogged Feeding Tube Sodium Chloride 10 ml 11/01/18 22:00 12/07/18 10:33 Sodium Chloride Flush Syringe 10 Ml IV 10 ml BID NORA Administration Sodium Chloride 10 ml 11/01/18 17:15 11/23/18 04:05 Sodium Chloride Flush Syringe 10 Ml IV 10 ml PRN PRN Administration LINE FLUSH Zinc Sulfate 220 mg 11/02/18 10:00 12/07/18 10:32 Zinc Sulfate PO 220 mg DAILY NORA Administration Nutrition/Malnutrition Assess - Dietary Evaluation Nutrition/Malnutrition Findings: Nutrition Notes Start: 11/04/18 16:00 Freq: Status: Active Protocol: Document 12/06/18 21:03 RM (Rec: 12/06/18 21:05 RM [email or web address]) Nutrition Notes Initial or Follow up Reassessment Current Diagnosis COPD,Diabetes,Sepsis, Hypertension,Heart Failure, Stroke Other Pertinent Diagnosis Sacral PUs, UTI, Dementia Current Diet Nepro at 40 ml/hr Labs/Tests No recent labs Pertinent Medications Reviewed Height 5 ft 8 in Weight 62.5 kg [place] Body Weight (kg) 70.00 BMI 20.9 Subjective/Other Information Observed Nepro infusing at goal rate. Percent of energy/protein needs met: 100%/100% Burn Absent Trauma Absent #1 Nutrition Diagnosis Inadequate oral intake Diagnosis Progress(for reassessment Continues documentation) Is patient on ventilator? No Is Patient Ambulatory and/or Out of Bed No REE-([facility]-confined to bed) [phone] Calculation Used for Recommendations [facility] Additional Notes Protein Needs: 76-95g (1.2-1. 5g/kg) Fluid Needs: 1 ml/kcal Nutrition Intervention Nutrition Support: Nepro 1.8 at 40 ml/hr. Water flush of 200 mls q 4 hrs . Kcal 1,728 Protein (gm) 78 Fluid (mL) 698 Goal #1 TF tolerance Goal #2 Continue to meet at least 75% of calorie and protein needs via TF Anticipated Discharge Needs: Unable to determine at this time Follow-Up By: 12/13/18 Additional Comments Follow for TF tolerance
[2018-12-08] MEDS: DUONEB *Not for PRN Use IH SCH ×2 (07:44→20:38)
[2018-12-08] MEDS: KEPPRA FEEDTUBE SCH ×2 (10:51→22:04)
[2018-12-08] MEDS: Centrum Liq FEEDTUBE SCH (10:51)
[2018-12-08] MEDS: DAPTOMYCIN IV SCH (10:51)
[2018-12-08] MEDS: LOVENOX SUB-Q SCH (10:51)
[2018-12-08] MEDS: NACL 0.9% IV SCH (10:51)
[2018-12-08] MEDS: SODIUM CHLORIDE FLUSH SYRINGE 10 ML IV SCH ×2 (10:51→22:06)
[2018-12-08] MEDS: VITAMIN C FEEDTUBE SCH ×2 (10:52→22:03)
[2018-12-08] MEDS: APRESOLINE PO SCH ×2 (10:52→22:05)
[2018-12-08] MEDS: COREG PO SCH ×2 (10:52→22:05)
[2018-12-08] MEDS: ZINC SULFATE PO SCH (10:52)
--- NOTE | 2018-12-08 15:46 | Progress Note ---
Assessment and Plan Assessment and plan: 67 YO Male [facility] Facility Resident as [facility] with HTN, CVA, Obstructive Uropathy, Diastolic CHF, Contracture, Sacral Decubitus Ulcers, [place], DM, OA, Seizure Disorder, COPD, Dementia, BPH presents to ED for evaluation. Pt is stuporous and unable to provide history. Pt history taken from ED Staff, EMS, and SNF Staff. As per staff, the patient was found to have respiratory distress upon evaluation this morning. Pt found to have pulse oximetry in the 80's. EMS notified and patient subsequently transported to [facility] for further care and evaluation. Pt seen and evaluated in ED and found to have UTI, Sepsis, Encephalopathy as well as Acute Hypoxemic Respiratory Failure. Pt initiated on NIPPV in ED with improvement in symptoms. Pt admitted to [facility] and initiated on Sepsis protocol. Prior admission on 10/01/18 reviewed. 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 He needs to be on contact isolation. This cannot be cured with antibiotics. recommend palliative care/comfort care or hospice, family are not interested in that option, continue daptomycin , at discharge will do daptomycin 400 mg IV q day for 6 weeks until 12/16/2018 sacral pressure ulcer -infected. POA WOUND CARE CONSULT. CONTINUE ABX. Debridement done by Dr Man Amputation recommended and the daughter refused Respiratory failure Supplemental oxygen, nebulizer therapy, mgt per pulmonology Anemia of chronic disease Transfused one unit PRBC hemoglobin is stable Seizure Continue current therapy, seizure precautions. BPH Continue Chaudhary catherter Dementia supportive care DVT prophylaxis Prophylactic lovenox POOR PROGNOSIS Disposition; pending SNF placement. . History Interval history: Review of systems Constitutional: No fevers, no malaise, no joint pains CVS: No chest pain, no orthopnea, no dyspnea on exertion, no pedal edema GI: No abdominal pain, no diarrhea, no vomiting, no constipation Respiratory: no wheezing, no coughing Hospitalist Physical - Physical exam Narrative exam: Not in cardiopulmonary distress. The patient appeared well nourished and normally developed. Vital signs as documented. Head exam is unremarkable. No scleral icterus . Neck is without jugular venous distension, thyromegaly, or carotid bruits. Lungs are clear to auscultation. Cardiac exam reveals regular rate and Rhythm. First and second heart sounds normal. No murmurs, rubs or gallops. Abdominal exam reveals normal bowel sounds, no masses, no organomegaly and no aortic enlargement. Extremities contracted extremities. 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 No focal weakness. Skin; multiple decubitus ulcers, including the sacrum and the heel. - Constitutional Vitals: Temp Pulse Resp BP Pulse Ox 98.7 F 94 H 18 124/54 95 12/08/18 07:42 12/08/18 10:00 12/08/18 08:10 12/08/18 07:42 12/08/18 07:48 General appearance: Present: no acute distress Results - Labs CBC & Chem 7: 12/27/18 04:23 12/27/18 04:23 Labs: Laboratory Last Values WBC 9.4 K/mm3 (4.5-11.0) 12/03/18 05:07 RBC 2.93 M/mm3 (3.65-5.03) L 12/03/18 05:07 Hgb 8.2 gm/dl (11.8-15.2) L 12/03/18 05:07 Hct 24.9 % (35.5-45.6) L 12/03/18 05:07 MCV 85 fl (84-94) 12/03/18 05:07 MCH 28 pg (28-32) 12/03/18 05:07 MCHC 33 % (32-34) 12/03/18 05:07 RDW 17.0 % (13.2-15.2) H 12/03/18 05:07 Plt Count 470 K/mm3 (140-440) H 12/03/18 05:07 Lymph % (Auto) 9.3 % (13.4-35.0) L 12/03/18 05:07 [place] % (Auto) 8.6 % (0.0-7.3) H 12/03/18 05:07 Eos % (Auto) 5.4 % (0.0-4.3) H 12/03/18 05:07 Baso % (Auto) 0.9 % (0.0-1.8) 12/03/18 05:07 Lymph # 0.9 K/mm3 (1.2-5.4) L 12/03/18 05:07 [place] # 0.8 K/mm3 (0.0-0.8) 12/03/18 05:07 Eos # 0.5 K/mm3 (0.0-0.4) H 12/03/18 05:07 Baso # 0.1 K/mm3 (0.0-0.1) 12/03/18 05:07 Seg Neutrophils % 75.8 % (40.0-70.0) H 12/03/18 05:07 Seg Neutrophils # 7.1 K/mm3 (1.8-7.7) 12/03/18 05:07 PT 16.3 Sec. (12.2-14.9) H 11/01/18 14:50 INR 1.35 (0.87-1.13) H 11/01/18 14:50 POC ABG pH 7.494 (7.35-7.45) H 11/01/18 15:27 POC ABG pCO2 34.5 (35-45) L 11/01/18 15:27 POC ABG pO2 139 (80-105) H 11/01/18 15:27 POC ABG HCO3 26.5 (22-26 mml/L) 11/01/18 15:27 POC ABG Total CO2 28 (23-27mmol/L) 11/01/18 15:27 POC ABG O2 Sat 99 11/01/18 15:27 POC ABG Base Excess 3 ((-2) - (+3)mmol/L) 11/01/18 15:27 VBG pH 7.499 (7.320-7.420) H 11/01/18 14:50 50 % 11/01/18 15:27 Sodium 141 mmol/L (137-145) 12/06/18 20:57 Potassium 4.0 mmol/L (3.6-5.0) 12/06/18 20:57 Chloride 107.2 mmol/L (98-107) H 12/06/18 20:57 Carbon Dioxide 22 mmol/L (22-30) 12/06/18 20:57 16 mmol/L 12/06/18 20:57 BUN 27 mg/dL (9-20) H 12/06/18 20:57 0.7 mg/dL (0.8-1.5) L 12/06/18 20:57 Estimated GFR > 60 ml/min 12/06/18 20:57 39 % 12/06/18 20:57 Glucose 89 mg/dL (75-100) 12/06/18 20:57 POC Glucose 130 (70-105) H 12/08/18 12:27 Lactic Acid 1.80 mmol/L (0.7-2.0) 11/01/18 14:50 Calcium 9.5 mg/dL (8.4-10.2) 12/06/18 20:57 Phosphorus 2.90 mg/dL (2.5-4.5) 11/22/18 09:43 Magnesium 2.50 mg/dL (1.7-2.3) H 12/06/18 20:57 0.30 mg/dL (0.1-1.2) 11/01/18 14:50 AST 90 units/L (5-40) H 11/01/18 14:50 ALT 77 units/L (7-56) H 11/01/18 14:50 350 units/L (35-129) H 11/01/18 14:50 72 units/L (55-170) 11/30/18 00:31 NT-Pro-B Natriuret Pep 6776 pg/mL (0-900) H 11/01/18 14:50 7.9 g/dL (6.3-8.2) 11/01/18 14:50 1.6 g/dL (3.9-5) L 11/01/18 14:50 0.3 % 11/01/18 14:50 14 units/L (13-60) 11/25/18 15:07 Yellow (Yellow) 11/01/18 15:57 Turbid (Clear) 11/01/18 15:57 6.0 (5.0-7.0) 11/01/18 15:57 Ur Specific [place] 1.016 (1.003-1.030) 11/01/18 15:57 100 mg/dl mg/dL (Negative) 11/01/18 15:57 Neg mg/dL (Negative) 11/01/18 15:57 Neg mg/dL (Negative) 11/01/18 15:57 Neg (Negative) 11/01/18 15:57 Neg (Negative) 11/01/18 15:57 Neg (Negative) 11/01/18 15:57 < 2.0 mg/dL (<2.0) 11/01/18 15:57 Ur Leukocyte Esterase Mod (Negative) 11/01/18 15:57 > 182.0 /HPF (0.0-6.0) H 11/01/18 15:57 40.0 /HPF (0.0-6.0) 11/01/18 15:57 U Epithel Cells (Auto) 8.0 /HPF (0-13.0) 11/01/18 15:57 3+ /HPF 11/01/18 15:57 3+ /HPF 11/01/18 15:57 Random Vancomycin 13.9 ug/mL (0-40.0) 11/02/18 05:05 Blood Type O POSITIVE 11/25/18 15:28 Antibody Screen Negative 11/25/18 15:28 Crossmatch See Detail 11/25/18 15:28 Active Medications - Current Medications Current Medications: Generic Name Dose Route Start Last Admin Trade Name Freq PRN Reason Stop Dose Admin Acetaminophen/Hydrocodone Bitart 1 each 11/15/18 04:51 12/05/18 04:08 [place] 5/325 PO 1 each Q4H PRN Administration Pain, Moderate (4-6) Albuterol 2.5 mg 11/01/18 17:15 Proventil IH Q3HRT PRN Shortness Of Breath Albuterol/Ipratropium 1 ampul 11/28/18 20:00 12/08/18 07:44 Duoneb *Not For Prn Use* IH 1 ampul BIDRT NORA Administration Lipase/Protease/Amylase 1 each 11/03/18 17:12 12/02/18 08:40 Pancreazadela [place] 10,500 Unit FEEDTUBE 1 each PRN PRN Administration For Clogged Feeding Tube Ascorbic Acid 500 mg 11/01/18 22:00 12/08/18 10:52 Vitamin C FEEDTUBE 500 mg BID NORA Administration Atorvastatin Calcium 40 mg 11/01/18 22:00 12/07/18 21:49 Lipitor FEEDTUBE 40 mg QHS NORA Administration Carvedilol 6.25 mg 11/08/18 13:00 12/08/18 10:52 Coreg PO 6.25 mg BID NORA Administration Clonidine HCl 0.2 mg 11/05/18 17:18 12/03/18 18:33 Catapres-Tts Patch TD 0.2 mg Tu NORA Administration Enoxaparin Sodium 40 mg 11/02/18 10:00 12/08/18 10:51 Lovenox SUB-Q 40 mg QDAY@1000 NORA Administration Hydralazine HCl 10 mg 11/25/18 22:00 12/08/18 10:52 Apresoline PO 10 mg Q12HR NORA Administration Daptomycin 400 mg/ Sodium 100 mls @ 200 mls/hr 11/25/18 11:00 12/08/18 10:51 Chloride IV 12/16/18 11:29 200 mls/hr Q24H NORA Administration Protocol Levetiracetam 500 mg 11/01/18 22:00 12/08/18 10:51 Keppra FEEDTUBE 500 mg BID NORA Administration Morphine Sulfate 2 mg 11/01/18 17:15 11/30/18 21:15 Morphine IV 2 mg Q4H PRN Administration Pain, Moderate (4-6) Multivitamins 5 ml 11/02/18 10:00 12/08/18 10:51 Centrum Liq FEEDTUBE 5 ml QDAY NORA Administration Simple Syrup 15 ml 11/03/18 17:12 11/16/18 13:40 Simple Syrup FEEDTUBE 15 ml PRN PRN Administration Hypoglycemia Simple Syrup 30 ml 11/03/18 17:12 Simple Syrup FEEDTUBE PRN PRN Hypoglycemia Sodium Bicarbonate 325 mg 11/03/18 17:12 12/02/18 08:40 Sodium Bicarbonate FEEDTUBE 325 mg PRN PRN Administration For Clogged Feeding Tube Sodium Chloride 10 ml 11/01/18 22:00 12/08/18 10:51 Sodium Chloride Flush Syringe 10 Ml IV 10 ml BID NORA Administration Sodium Chloride 10 ml 11/01/18 17:15 11/23/18 04:05 Sodium Chloride Flush Syringe 10 Ml IV 10 ml PRN PRN Administration LINE FLUSH Zinc Sulfate 220 mg 11/02/18 10:00 12/08/18 10:52 Zinc Sulfate PO 220 mg DAILY NORA Administration Nutrition/Malnutrition Assess - Dietary Evaluation Nutrition/Malnutrition Findings: Nutrition Notes Start: 11/04/18 16:00 Freq: Status: Active Protocol: Document 12/06/18 21:03 RM (Rec: 12/06/18 21:05 [id number]) Nutrition Notes Initial or Follow up Reassessment Current Diagnosis COPD,Diabetes,Sepsis, Hypertension,Heart Failure, Stroke Other Pertinent Diagnosis Sacral PUs, UTI, Dementia Current Diet Nepro at 40 ml/hr Labs/Tests No recent labs Pertinent Medications Reviewed Height 5 ft 8 in Weight 62.5 kg [place] Body Weight (kg) 70.00 BMI 20.9 Subjective/Other Information Observed Nepro infusing at goal rate. Percent of energy/protein needs met: 100%/100% Burn Absent Trauma Absent #1 Nutrition Diagnosis Inadequate oral intake Diagnosis Progress(for reassessment Continues documentation) Is patient on ventilator? No Is Patient Ambulatory and/or Out of Bed No REE-([facility]-confined to bed) 6330.858 Calculation Used for Recommendations [facility] Additional Notes Protein Needs: 76-95g (1.2-1. 5g/kg) Fluid Needs: 1 ml/kcal Nutrition Intervention Nutrition Support: Nepro 1.8 at 40 ml/hr. Water flush of 200 mls q 4 hrs . Kcal 1,728 Protein (gm) 78 Fluid (mL) 698 Goal #1 TF tolerance Goal #2 Continue to meet at least 75% of calorie and protein needs via TF Anticipated Discharge Needs: Unable to determine at this time Follow-Up By: 12/13/18 Additional Comments Follow for TF tolerance
--- NOTE | 2018-12-08 19:31 | Progress Note ---
Assessment and Plan (1) Sepsis- severe Current Visit: Yes Status: Acute Plan to address problem: Volume resuscitation cautiously Antibiotics per ID (2) Respiratory failure Current Visit: Yes Status: Acute Qualifiers: Chronicity: acute Respiratory failure complication: hypoxia Qualified Code(s): J96.01 - Acute respiratory failure with hypoxia Plan to address problem: Supplemental oxygen wean fro O2 sats >90% Bronchodilaotrs per protocol Judicious use of IVF to prevent pulmonary edema (3) Seizure Current Visit: Yes Status: Acute Plan to address problem: Continue current therapy, seizure precautions. (4) UTI (urinary tract infection) Current Visit: Yes Status: Acute Qualifiers: Encounter type: initial encounter Plan to address problem: IV antibiotic therapy (5) Dementia Current Visit: Yes Status: Acute Qualifiers: Dementia behavioral disturbance: without behavioral disturbance Plan to address problem: Per primary (6) sacral pressure ulcer -infected. POA WOUND CARE CONSULT. CONTINUE ABX. (7)DVT prophylaxis Current Visit: Yes Status: Acute Plan to address problem: SCD to BLE while in bed, Prophylactic lovenox POOR PROGNOSIS Subjective Date of service: 12/08/18 Principal diagnosis: Severe Sepsis; Ac. Hypoxemic Resp failure; Anemia; Seizure; UTI; BPH Interval history: Patient is seen today for: Severe Sepsis; Acute Hypoxemic Respiratory failure; Anemia of chronic disease; Seizure; UTI (urinary tract infection); BPH; Dementi a; sacral pressure ulcer -infected. POA Seen and examined at bedside; 24-hour events reviewed; nursing and respiratory care staff consulted; no adverse overnight events reported to me; resting peacefully in bed; No N/V/F/C; s/p debridment of multile pressure ulcers; Vitals, labs, medications, chart reviewed. On 3L NC, comfortable, Right chest wall tunnelled PICC line Objective Vital Signs - 12hr 12/08/18 12/08/18 12/08/18 07:42 07:46 07:48 Temperature 98.7 F Pulse Rate 94 H Pulse Rate [ 95 H Anterior Bilateral Throughout] Respiratory 18 Rate Respiratory 18 Rate [Anterior Bilateral Throughout] Blood Pressure 124/54 O2 Sat by Pulse 95 95 Oximetry 12/08/18 12/08/18 08:10 10:00 Temperature Pulse Rate 94 H Pulse Rate [ 100 H Anterior Bilateral Throughout] Respiratory Rate Respiratory 18 Rate [Anterior Bilateral Throughout] Blood Pressure O2 Sat by Pulse Oximetry Constitutional: no acute distress, alert Eyes: non-icteric ENT: oropharynx moist Neck: no lymphadenopathy, no JVD, other (mild stiffness / contracture) Effort: mildly labored Ascultation: Bilateral: diminished breath sounds, rhonchi Percussion: Bilateral: not dull Cardiovascular: regular rate and rhythm Gastrointestinal: normoactive bowel sounds, soft, non-tender, non-distended Integumentary: rash Extremities: no cyanosis, no edema, pulses normal, other (Patient has pressure ulcer at multiple areas, including sacral area.) Neurologic: non-focal exam, pupils equal and round, CN II-XII normal, other (+ contractures) Psychiatric: mood appropriate, affect normal CBC and BMP: 12/03/18 05:07 12/06/18 20:57 ABG, PT/INR, D-dimer: ABG POC ABG pH 7.494 (7.35-7.45) H 11/01/18 15:27 POC ABG pCO2 34.5 (35-45) L 11/01/18 15:27 POC ABG pO2 139 (80-105) H 11/01/18 15:27 POC ABG HCO3 26.5 (22-26 mml/L) 11/01/18 15:27 POC ABG Total CO2 28 (23-27mmol/L) 11/01/18 15:27 POC ABG O2 Sat 99 11/01/18 15:27 PT/INR, D-dimer PT 16.3 Sec. (12.2-14.9) H 11/01/18 14:50 INR 1.35 (0.87-1.13) H 11/01/18 14:50 Abnormal lab findings: Abnormal Labs 11/01/18 11/01/18 11/01/18 14:50 14:50 14:50 WBC 15.3 H RBC 2.76 L Hgb 7.9 L Hct 23.5 L MCH MCHC RDW 18.3 H Plt Count 567 H Lymph % (Auto) 6.5 L Rankin % (Auto) 8.5 H Eos % (Auto) Lymph # 1.0 L Rankin # 1.3 H Eos # Seg Neutrophils % 83.4 H Seg Neutrophils # 12.7 H PT 16.3 H INR 1.35 H POC ABG pH POC ABG pCO2 POC ABG pO2 VBG pH Sodium Potassium Chloride Carbon Dioxide BUN 49 H Creatinine Glucose 132 H POC Glucose Magnesium AST 90 H ALT 77 H Alkaline Phosphatase 350 H Total Creatine Kinase NT-Pro-B Natriuret Pep Albumin 1.6 L Urine WBC (Auto) Crossmatch 11/01/18 11/01/18 11/01/18 14:50 14:50 15:27 WBC RBC Hgb Hct MCH MCHC RDW Plt Count Lymph % (Auto) Rankin % (Auto) Eos % (Auto) Lymph # Rankin # Eos # Seg Neutrophils % Seg Neutrophils # PT INR POC ABG pH 7.494 H POC ABG pCO2 34.5 L POC ABG pO2 139 H VBG pH 7.499 H Sodium Potassium Chloride Carbon Dioxide BUN Creatinine Glucose POC Glucose Magnesium AST ALT Alkaline Phosphatase Total Creatine Kinase NT-Pro-B Natriuret Pep 6776 H Albumin Urine WBC (Auto) Crossmatch 11/01/18 11/03/18 11/03/18 15:57 03:41 03:41 WBC 12.8 H RBC 2.55 L Hgb 6.9 L Hct 22.2 L MCH 27 L MCHC 31 L RDW 17.9 H Plt Count 519 H Lymph % (Auto) Rankin % (Auto) Eos % (Auto) Lymph # Rankin # Eos # Seg Neutrophils % Seg Neutrophils # PT INR POC ABG pH POC ABG pCO2 POC ABG pO2 VBG pH Sodium 147 H Potassium Chloride 110.3 H Carbon Dioxide BUN 55 H Creatinine Glucose POC Glucose Magnesium AST ALT Alkaline Phosphatase Total Creatine Kinase NT-Pro-B Natriuret Pep Albumin Urine WBC (Auto) > 182.0 H Crossmatch 11/03/18 11/04/18 11/04/18 12:51 05:12 05:12 WBC 11.5 H RBC 2.94 L Hgb 8.3 L Hct 25.3 L MCH MCHC RDW 17.3 H Plt Count 514 H Lymph % (Auto) Rankin % (Auto) Eos % (Auto) Lymph # Rankin # Eos # Seg Neutrophils % Seg Neutrophils # PT INR POC ABG pH POC ABG pCO2 POC ABG pO2 VBG pH Sodium 147 H Potassium Chloride 112.4 H Carbon Dioxide BUN 52 H Creatinine Glucose POC Glucose Magnesium AST ALT Alkaline Phosphatase Total Creatine Kinase NT-Pro-B Natriuret Pep Albumin Urine WBC (Auto) Crossmatch See Detail 11/05/18 11/05/1819 04:50 04:50 05:42 WBC RBC 3.03 L 2.80 L Hgb 8.7 L 7.9 L Hct 26.6 L 24.7 L MCH MCHC RDW 17.1 H 17.0 H Plt Count 502 H 478 H Lymph % (Auto) 10.4 L Rankin % (Auto) 8.6 H Eos % (Auto) 4.7 H Lymph # 1.0 L Rankin # Eos # 0.5 H Seg Neutrophils % 75.6 H Seg Neutrophils # PT INR POC ABG pH POC ABG pCO2 POC ABG pO2 VBG pH Sodium 149 H Potassium Chloride 114.4 H Carbon Dioxide 21 L BUN 50 H Creatinine Glucose 108 H POC Glucose Magnesium AST ALT Alkaline Phosphatase Total Creatine Kinase NT-Pro-B Natriuret Pep Albumin Urine WBC (Auto) Crossmatch 11/06/18 11/11/18 11/12/18 05:42 18:54 00:22 WBC RBC Hgb Hct MCH MCHC RDW Plt Count Lymph % (Auto) Rankin % (Auto) Eos % (Auto) Lymph # Rankin # Eos # Seg Neutrophils % Seg Neutrophils # PT INR POC ABG pH POC ABG pCO2 POC ABG pO2 VBG pH Sodium 149 H Potassium Chloride 113.4 H Carbon Dioxide BUN 50 H Creatinine Glucose 121 H POC Glucose 114 H 123 H Magnesium AST ALT Alkaline Phosphatase Total Creatine Kinase NT-Pro-B Natriuret Pep Albumin Urine WBC (Auto) Crossmatch 11/12/18 11/12/18 11/13/18 06:49 11:35 06:34 WBC RBC Hgb Hct MCH MCHC RDW Plt Count Lymph % (Auto) Rankin % (Auto) Eos % (Auto) Lymph # Rankin # Eos # Seg Neutrophils % Seg Neutrophils # PT INR POC ABG pH POC ABG pCO2 POC ABG pO2 VBG pH Sodium Potassium Chloride Carbon Dioxide BUN Creatinine Glucose POC Glucose 129 H 123 H 128 H Magnesium AST ALT Alkaline Phosphatase Total Creatine Kinase NT-Pro-B Natriuret Pep Albumin Urine WBC (Auto) Crossmatch 11/13/18 11/13/18 11/13/18 09:26 09:26 15:13 WBC RBC 3.08 L Hgb 8.6 L Hct 27.3 L MCH MCHC 31 L RDW 18.3 H Plt Count 504 H Lymph % (Auto) 11.7 L Rankin % (Auto) 7.5 H Eos % (Auto) 7.0 H Lymph # Rankin # Eos # 0.7 H Seg Neutrophils % 72.9 H Seg Neutrophils # PT INR POC ABG pH POC ABG pCO2 POC ABG pO2 VBG pH Sodium 153 H Potassium 6.3 H* 5.8 H Chloride 122.3 H Carbon Dioxide 21 L BUN 38 H Creatinine Glucose 112 H POC Glucose Magnesium AST ALT Alkaline Phosphatase Total Creatine Kinase NT-Pro-B Natriuret Pep Albumin Urine WBC (Auto) Crossmatch 11/13/18 11/13/18 11/14/18 22:10 23:45 13:17 WBC RBC Hgb Hct MCH MCHC RDW Plt Count Lymph % (Auto) Rankin % (Auto) Eos % (Auto) Lymph # Rankin # Eos # Seg Neutrophils % Seg Neutrophils # PT INR POC ABG pH POC ABG pCO2 POC ABG pO2 VBG pH Sodium 155 H Potassium 5.3 H Chloride 122.3 H Carbon Dioxide BUN 35 H Creatinine Glucose 113 H POC Glucose 111 H 142 H Magnesium AST ALT Alkaline Phosphatase Total Creatine Kinase NT-Pro-B Natriuret Pep Albumin Urine WBC (Auto) Crossmatch 11/14/18 11/15/18 11/15/18 19:08 00:31 06:45 WBC RBC Hgb Hct MCH MCHC RDW Plt Count Lymph % (Auto) Rankin % (Auto) Eos % (Auto) Lymph # Rankin # Eos # Seg Neutrophils % Seg Neutrophils # PT INR POC ABG pH POC ABG pCO2 POC ABG pO2 VBG pH Sodium Potassium Chloride Carbon Dioxide BUN Creatinine Glucose POC Glucose 116 H 125 H 131 H Magnesium AST ALT Alkaline Phosphatase Total Creatine Kinase NT-Pro-B Natriuret Pep Albumin Urine WBC (Auto) Crossmatch 11/15/18 11/15/18 11/15/18 07:13 07:13 19:03 WBC 13.2 H RBC 2.81 L Hgb 7.8 L Hct 24.5 L MCH MCHC RDW 18.2 H Plt Count 454 H Lymph % (Auto) 9.0 L Rankin % (Auto) 7.5 H Eos % (Auto) Lymph # Rankin # 1.0 H Eos # 0.5 H Seg Neutrophils % 78.8 H Seg Neutrophils # 10.4 H PT INR POC ABG pH POC ABG pCO2 POC ABG pO2 VBG pH Sodium 149 H Potassium 5.2 H Chloride 117.2 H Carbon Dioxide BUN 38 H Creatinine Glucose 114 H POC Glucose 141 H Magnesium AST ALT Alkaline Phosphatase Total Creatine Kinase NT-Pro-B Natriuret Pep Albumin Urine WBC (Auto) Crossmatch 11/16/18 11/16/18 11/16/18 01:15 01:15 06:45 WBC RBC Hgb Hct MCH MCHC RDW Plt Count Lymph % (Auto) Rankin % (Auto) Eos % (Auto) Lymph # Rankin # Eos # Seg Neutrophils % Seg Neutrophils # PT INR POC ABG pH POC ABG pCO2 POC ABG pO2 VBG pH Sodium Potassium 5.3 H Chloride Carbon Dioxide BUN Creatinine Glucose POC Glucose 129 H Magnesium 2.60 H AST ALT Alkaline Phosphatase Total Creatine Kinase NT-Pro-B Natriuret Pep Albumin Urine WBC (Auto) Crossmatch 11/16/18 11/16/18 11/17/18 13:20 18:02 00:16 WBC RBC Hgb Hct MCH MCHC RDW Plt Count Lymph % (Auto) Rankin % (Auto) Eos % (Auto) Lymph # Rankin # Eos # Seg Neutrophils % Seg Neutrophils # PT INR POC ABG pH POC ABG pCO2 POC ABG pO2 VBG pH Sodium Potassium Chloride Carbon Dioxide BUN Creatinine Glucose POC Glucose 130 H 127 H 120 H Magnesium AST ALT Alkaline Phosphatase Total Creatine Kinase NT-Pro-B Natriuret Pep Albumin Urine WBC (Auto) Crossmatch 11/17/18 11/17/18 11/17/18 05:48 08:02 08:02 WBC RBC Hgb 7.5 L Hct 23.5 L MCH MCHC RDW Plt Count Lymph % (Auto) Rankin % (Auto) Eos % (Auto) Lymph # Rankin # Eos # Seg Neutrophils % Seg Neutrophils # PT INR POC ABG pH POC ABG pCO2 POC ABG pO2 VBG pH Sodium Potassium Chloride 110.1 H Carbon Dioxide 21 L BUN 38 H Creatinine Glucose 121 H POC Glucose 130 H Magnesium AST ALT Alkaline Phosphatase Total Creatine Kinase NT-Pro-B Natriuret Pep Albumin Urine WBC (Auto) Crossmatch 11/17/18 11/17/18 11/18/18 12:17 16:48 06:00 WBC RBC Hgb Hct MCH MCHC RDW Plt Count Lymph % (Auto) Rankin % (Auto) Eos % (Auto) Lymph # Rankin # Eos # Seg Neutrophils % Seg Neutrophils # PT INR POC ABG pH POC ABG pCO2 POC ABG pO2 VBG pH Sodium Potassium Chloride Carbon Dioxide BUN Creatinine Glucose POC Glucose 140 H 120 H 137 H Magnesium AST ALT Alkaline Phosphatase Total Creatine Kinase NT-Pro-B Natriuret Pep Albumin Urine WBC (Auto) Crossmatch 11/19/18 11/19/18 11/19/18 00:20 05:35 06:11 WBC RBC Hgb Hct MCH MCHC RDW Plt Count Lymph % (Auto) Rankin % (Auto) Eos % (Auto) Lymph # Rankin # Eos # Seg Neutrophils % Seg Neutrophils # PT INR POC ABG pH POC ABG pCO2 POC ABG pO2 VBG pH Sodium Potassium Chloride Carbon Dioxide BUN Creatinine Glucose POC Glucose 111 H 126 H Magnesium AST ALT Alkaline Phosphatase Total Creatine Kinase 53 L NT-Pro-B Natriuret Pep Albumin Urine WBC (Auto) Crossmatch 11/19/18 11/19/18 11/20/18 11:37 23:43 06:52 WBC RBC Hgb Hct MCH MCHC RDW Plt Count Lymph % (Auto) Rankin % (Auto) Eos % (Auto) Lymph # Rankin # Eos # Seg Neutrophils % Seg Neutrophils # PT INR POC ABG pH POC ABG pCO2 POC ABG pO2 VBG pH Sodium Potassium Chloride Carbon Dioxide BUN Creatinine Glucose POC Glucose 139 H 145 H 125 H Magnesium AST ALT Alkaline Phosphatase Total Creatine Kinase NT-Pro-B Natriuret Pep Albumin Urine WBC (Auto) Crossmatch 11/20/18 11/20/18 11/20/18 09:55 09:55 11:49 WBC RBC 3.04 L Hgb 8.4 L Hct 26.1 L MCH MCHC RDW 17.5 H Plt Count Lymph % (Auto) Rankin % (Auto) Eos % (Auto) Lymph # Rankin # Eos # Seg Neutrophils % Seg Neutrophils # PT INR POC ABG pH POC ABG pCO2 POC ABG pO2 VBG pH Sodium 149 H Potassium Chloride 114.5 H Carbon Dioxide 21 L BUN 35 H Creatinine Glucose 127 H POC Glucose 150 H Magnesium AST ALT Alkaline Phosphatase Total Creatine Kinase NT-Pro-B Natriuret Pep Albumin Urine WBC (Auto) Crossmatch 11/20/18 11/20/18 11/21/18 18:02 23:49 06:14 WBC RBC Hgb Hct MCH MCHC RDW Plt Count Lymph % (Auto) Rankin % (Auto) Eos % (Auto) Lymph # Rankin # Eos # Seg Neutrophils % Seg Neutrophils # PT INR POC ABG pH POC ABG pCO2 POC ABG pO2 VBG pH Sodium Potassium Chloride Carbon Dioxide BUN Creatinine Glucose POC Glucose 131 H 137 H 133 H Magnesium AST ALT Alkaline Phosphatase Total Creatine Kinase NT-Pro-B Natriuret Pep Albumin Urine WBC (Auto) Crossmatch 11/21/18 11/21/18 11/21/18 10:00 12:09 18:04 WBC RBC Hgb Hct MCH MCHC RDW Plt Count Lymph % (Auto) Rankin % (Auto) Eos % (Auto) Lymph # Rankin # Eos # Seg Neutrophils % Seg Neutrophils # PT INR POC ABG pH POC ABG pCO2 POC ABG pO2 VBG pH Sodium Potassium Chloride 110.6 H Carbon Dioxide BUN 31 H Creatinine Glucose 119 H POC Glucose 116 H 126 H Magnesium AST ALT Alkaline Phosphatase Total Creatine Kinase NT-Pro-B Natriuret Pep Albumin Urine WBC (Auto) Crossmatch 11/22/18 11/22/18 11/22/18 00:14 05:47 06:23 WBC RBC Hgb Hct MCH MCHC RDW Plt Count Lymph % (Auto) Rankin % (Auto) Eos % (Auto) Lymph # Rankin # Eos # Seg Neutrophils % Seg Neutrophils # PT INR POC ABG pH POC ABG pCO2 POC ABG pO2 VBG pH Sodium Potassium Chloride 107.6 H Carbon Dioxide BUN 32 H Creatinine 0.7 L Glucose 116 H POC Glucose 122 H 119 H Magnesium AST ALT Alkaline Phosphatase Total Creatine Kinase NT-Pro-B Natriuret Pep Albumin Urine WBC (Auto) Crossmatch 11/22/18 11/22/18 11/22/18 08:40 12:19 17:39 WBC RBC Hgb Hct MCH MCHC RDW Plt Count Lymph % (Auto) Rankin % (Auto) Eos % (Auto) Lymph # Rankin # Eos # Seg Neutrophils % Seg Neutrophils # PT INR POC ABG pH POC ABG pCO2 POC ABG pO2 VBG pH Sodium Potassium Chloride Carbon Dioxide BUN Creatinine Glucose POC Glucose 150 H 111 H 108 H Magnesium AST ALT Alkaline Phosphatase Total Creatine Kinase NT-Pro-B Natriuret Pep Albumin Urine WBC (Auto) Crossmatch 11/23/18 11/23/18 11/23/18 00:36 05:37 05:56 WBC RBC Hgb Hct MCH MCHC RDW Plt Count Lymph % (Auto) Rankin % (Auto) Eos % (Auto) Lymph # Rankin # Eos # Seg Neutrophils % Seg Neutrophils # PT INR POC ABG pH POC ABG pCO2 POC ABG pO2 VBG pH Sodium 136 L Potassium Chloride Carbon Dioxide BUN 30 H Creatinine 0.7 L Glucose 103 H POC Glucose 125 H 122 H Magnesium 2.50 H AST ALT Alkaline Phosphatase Total Creatine Kinase NT-Pro-B Natriuret Pep Albumin Urine WBC (Auto) Crossmatch 11/23/18 11/23/18 11/23/18 11:56 17:39 23:40 WBC RBC Hgb Hct MCH MCHC RDW Plt Count Lymph % (Auto) Rankin % (Auto) Eos % (Auto) Lymph # Rankin # Eos # Seg Neutrophils % Seg Neutrophils # PT INR POC ABG pH POC ABG pCO2 POC ABG pO2 VBG pH Sodium Potassium Chloride Carbon Dioxide BUN Creatinine Glucose POC Glucose 121 H 113 H 117 H Magnesium AST ALT Alkaline Phosphatase Total Creatine Kinase NT-Pro-B Natriuret Pep Albumin Urine WBC (Auto) Crossmatch 11/24/18 11/24/18 11/24/18 05:13 12:00 18:13 WBC RBC Hgb Hct MCH MCHC RDW Plt Count Lymph % (Auto) Rankin % (Auto) Eos % (Auto) Lymph # Rankin # Eos # Seg Neutrophils % Seg Neutrophils # PT INR POC ABG pH POC ABG pCO2 POC ABG pO2 VBG pH Sodium Potassium Chloride Carbon Dioxide BUN Creatinine Glucose POC Glucose 143 H 123 H 124 H Magnesium AST ALT Alkaline Phosphatase Total Creatine Kinase NT-Pro-B Natriuret Pep Albumin Urine WBC (Auto) Crossmatch 11/24/18 11/25/18 11/25/18 23:34 05:25 05:25 WBC RBC 2.48 L Hgb 6.8 L Hct 21.2 L MCH MCHC RDW 17.7 H Plt Count Lymph % (Auto) Rankin % (Auto) Eos % (Auto) Lymph # Rankin # Eos # Seg Neutrophils % Seg Neutrophils # PT INR POC ABG pH POC ABG pCO2 POC ABG pO2 VBG pH Sodium Potassium Chloride 108.8 H Carbon Dioxide BUN 30 H Creatinine 0.7 L Glucose 112 H POC Glucose 115 H Magnesium AST ALT Alkaline Phosphatase Total Creatine Kinase NT-Pro-B Natriuret Pep Albumin Urine WBC (Auto) Crossmatch 11/25/18 11/25/18 11/25/18 06:46 11:15 11:28 WBC RBC Hgb 7.4 L Hct 23.0 L MCH MCHC RDW Plt Count Lymph % (Auto) Rankin % (Auto) Eos % (Auto) Lymph # Rankin # Eos # Seg Neutrophils % Seg Neutrophils # PT INR POC ABG pH POC ABG pCO2 POC ABG pO2 VBG pH Sodium Potassium Chloride Carbon Dioxide BUN Creatinine Glucose POC Glucose 133 H 127 H Magnesium AST ALT Alkaline Phosphatase Total Creatine Kinase NT-Pro-B Natriuret Pep Albumin Urine WBC (Auto) Crossmatch 11/25/18 11/25/18 11/25/18 15:28 17:32 23:45 WBC RBC Hgb Hct MCH MCHC RDW Plt Count Lymph % (Auto) Rankin % (Auto) Eos % (Auto) Lymph # Rankin # Eos # Seg Neutrophils % Seg Neutrophils # PT INR POC ABG pH POC ABG pCO2 POC ABG pO2 VBG pH Sodium Potassium Chloride Carbon Dioxide BUN Creatinine Glucose POC Glucose 115 H 130 H Magnesium AST ALT Alkaline Phosphatase Total Creatine Kinase NT-Pro-B Natriuret Pep Albumin Urine WBC (Auto) Crossmatch See Detail 11/26/18 11/26/18 11/26/18 06:13 06:20 06:20 WBC RBC 2.76 L Hgb 7.7 L Hct 23.4 L MCH MCHC RDW 17.5 H Plt Count Lymph % (Auto) Rankin % (Auto) Eos % (Auto) Lymph # Rankin # Eos # Seg Neutrophils % Seg Neutrophils # PT INR POC ABG pH POC ABG pCO2 POC ABG pO2 VBG pH Sodium Potassium Chloride 109.9 H Carbon Dioxide BUN 30 H Creatinine 0.6 L Glucose 121 H POC Glucose 129 H Magnesium AST ALT Alkaline Phosphatase Total Creatine Kinase NT-Pro-B Natriuret Pep Albumin Urine WBC (Auto) Crossmatch 11/26/18 11/26/18 11/27/18 12:06 16:35 06:04 WBC RBC Hgb Hct MCH MCHC RDW Plt Count Lymph % (Auto) Rankin % (Auto) Eos % (Auto) Lymph # Rankin # Eos # Seg Neutrophils % Seg Neutrophils # PT INR POC ABG pH POC ABG pCO2 POC ABG pO2 VBG pH Sodium Potassium Chloride Carbon Dioxide BUN Creatinine Glucose POC Glucose 139 H 107 H 126 H Magnesium AST ALT Alkaline Phosphatase Total Creatine Kinase NT-Pro-B Natriuret Pep Albumin Urine WBC (Auto) Crossmatch 11/27/18 11/27/18 11/28/18 13:14 17:47 07:03 WBC RBC Hgb Hct MCH MCHC RDW Plt Count Lymph % (Auto) Rankin % (Auto) Eos % (Auto) Lymph # Rankin # Eos # Seg Neutrophils % Seg Neutrophils # PT INR POC ABG pH POC ABG pCO2 POC ABG pO2 VBG pH Sodium Potassium Chloride Carbon Dioxide BUN Creatinine Glucose POC Glucose 130 H 115 H 118 H Magnesium AST ALT Alkaline Phosphatase Total Creatine Kinase NT-Pro-B Natriuret Pep Albumin Urine WBC (Auto) Crossmatch 11/28/18 11/29/18 11/29/18 11:38 00:35 04:56 WBC RBC Hgb Hct MCH MCHC RDW Plt Count Lymph % (Auto) Rankin % (Auto) Eos % (Auto) Lymph # Rankin # Eos # Seg Neutrophils % Seg Neutrophils # PT INR POC ABG pH POC ABG pCO2 POC ABG pO2 VBG pH Sodium Potassium Chloride Carbon Dioxide BUN Creatinine Glucose POC Glucose 126 H 107 H Magnesium AST ALT Alkaline Phosphatase Total Creatine Kinase 50 L NT-Pro-B Natriuret Pep Albumin Urine WBC (Auto) Crossmatch 11/29/18 11/29/18 11/29/18 05:49 11:46 18:17 WBC RBC Hgb Hct MCH MCHC RDW Plt Count Lymph % (Auto) Rankin % (Auto) Eos % (Auto) Lymph # Rankin # Eos # Seg Neutrophils % Seg Neutrophils # PT INR POC ABG pH POC ABG pCO2 POC ABG pO2 VBG pH Sodium Potassium Chloride Carbon Dioxide BUN Creatinine Glucose POC Glucose 128 H 140 H 115 H Magnesium AST ALT Alkaline Phosphatase Total Creatine Kinase NT-Pro-B Natriuret Pep Albumin Urine WBC (Auto) Crossmatch 11/30/18 11/30/18 11/30/18 00:00 03:30 03:30 WBC RBC 2.97 L Hgb 8.1 L Hct 25.5 L MCH 27 L MCHC RDW 17.7 H Plt Count Lymph % (Auto) 9.2 L Rankin % (Auto) 10.0 H Eos % (Auto) 4.6 H Lymph # 1.0 L Rankin # 1.1 H Eos # 0.5 H Seg Neutrophils % 75.6 H Seg Neutrophils # 8.4 H PT INR POC ABG pH POC ABG pCO2 POC ABG pO2 VBG pH Sodium Potassium Chloride Carbon Dioxide BUN 31 H Creatinine 0.7 L Glucose POC Glucose 120 H Magnesium AST ALT Alkaline Phosphatase Total Creatine Kinase NT-Pro-B Natriuret Pep Albumin Urine WBC (Auto) Crossmatch 11/30/18 11/30/18 11/30/18 06:54 11:45 16:59 WBC RBC Hgb Hct MCH MCHC RDW Plt Count Lymph % (Auto) Rankin % (Auto) Eos % (Auto) Lymph # Rankin # Eos # Seg Neutrophils % Seg Neutrophils # PT INR POC ABG pH POC ABG pCO2 POC ABG pO2 VBG pH Sodium Potassium Chloride Carbon Dioxide BUN Creatinine Glucose POC Glucose 120 H 123 H 111 H Magnesium AST ALT Alkaline Phosphatase Total Creatine Kinase NT-Pro-B Natriuret Pep Albumin Urine WBC (Auto) Crossmatch 12/01/18 12/01/18 12/01/18 00:20 05:58 11:33 WBC RBC Hgb Hct MCH MCHC RDW Plt Count Lymph % (Auto) Rankin % (Auto) Eos % (Auto) Lymph # Rankin # Eos # Seg Neutrophils % Seg Neutrophils # PT INR POC ABG pH POC ABG pCO2 POC ABG pO2 VBG pH Sodium Potassium Chloride Carbon Dioxide BUN Creatinine Glucose POC Glucose 113 H 127 H 138 H Magnesium AST ALT Alkaline Phosphatase Total Creatine Kinase NT-Pro-B Natriuret Pep Albumin Urine WBC (Auto) Crossmatch 12/02/18 12/03/18 12/03/18 00:33 05:07 05:07 WBC RBC 2.93 L Hgb 8.2 L Hct 24.9 L MCH MCHC RDW 17.0 H Plt Count 470 H Lymph % (Auto) 9.3 L Rankin % (Auto) 8.6 H Eos % (Auto) 5.4 H Lymph # 0.9 L Rankin # Eos # 0.5 H Seg Neutrophils % 75.8 H Seg Neutrophils # PT INR POC ABG pH POC ABG pCO2 POC ABG pO2 VBG pH Sodium Potassium Chloride Carbon Dioxide BUN 30 H Creatinine 0.6 L Glucose 115 H POC Glucose 110 H Magnesium AST ALT Alkaline Phosphatase Total Creatine Kinase NT-Pro-B Natriuret Pep Albumin Urine WBC (Auto) Crossmatch 12/03/18 12/03/18 12/03/18 05:58 11:49 17:44 WBC RBC Hgb Hct MCH MCHC RDW Plt Count Lymph % (Auto) Rankin % (Auto) Eos % (Auto) Lymph # Rankin # Eos # Seg Neutrophils % Seg Neutrophils # PT INR POC ABG pH POC ABG pCO2 POC ABG pO2 VBG pH Sodium Potassium Chloride Carbon Dioxide BUN Creatinine Glucose POC Glucose 127 H 138 H 127 H Magnesium AST ALT Alkaline Phosphatase Total Creatine Kinase NT-Pro-B Natriuret Pep Albumin Urine WBC (Auto) Crossmatch 12/05/18 12/05/18 12/05/18 00:22 05:53 17:18 WBC RBC Hgb Hct MCH MCHC RDW Plt Count Lymph % (Auto) Rankin % (Auto) Eos % (Auto) Lymph # Rankin # Eos # Seg Neutrophils % Seg Neutrophils # PT INR POC ABG pH POC ABG pCO2 POC ABG pO2 VBG pH Sodium Potassium Chloride Carbon Dioxide BUN Creatinine Glucose POC Glucose 124 H 121 H 112 H Magnesium AST ALT Alkaline Phosphatase Total Creatine Kinase NT-Pro-B Natriuret Pep Albumin Urine WBC (Auto) Crossmatch 12/06/18 12/06/18 12/06/18 00:07 06:16 11:43 WBC RBC Hgb Hct MCH MCHC RDW Plt Count Lymph % (Auto) Rankin % (Auto) Eos % (Auto) Lymph # Rankin # Eos # Seg Neutrophils % Seg Neutrophils # PT INR POC ABG pH POC ABG pCO2 POC ABG pO2 VBG pH Sodium Potassium Chloride Carbon Dioxide BUN Creatinine Glucose POC Glucose 111 H 117 H 121 H Magnesium AST ALT Alkaline Phosphatase Total Creatine Kinase NT-Pro-B Natriuret Pep Albumin Urine WBC (Auto) Crossmatch 12/06/18 12/07/18 12/07/18 20:57 06:41 12:09 WBC RBC Hgb Hct MCH MCHC RDW Plt Count Lymph % (Auto) Rankin % (Auto) Eos % (Auto) Lymph # Rankin # Eos # Seg Neutrophils % Seg Neutrophils # PT INR POC ABG pH POC ABG pCO2 POC ABG pO2 VBG pH Sodium Potassium Chloride 107.2 H Carbon Dioxide BUN 27 H Creatinine 0.7 L Glucose POC Glucose 128 H 137 H Magnesium 2.50 H AST ALT Alkaline Phosphatase Total Creatine Kinase NT-Pro-B Natriuret Pep Albumin Urine WBC (Auto) Crossmatch 12/07/18 12/08/18 12/08/18 19:29 05:44 12:27 WBC RBC Hgb Hct MCH MCHC RDW Plt Count Lymph % (Auto) Rankin % (Auto) Eos % (Auto) Lymph # Rankin # Eos # Seg Neutrophils % Seg Neutrophils # PT INR POC ABG pH POC ABG pCO2 POC ABG pO2 VBG pH Sodium Potassium Chloride Carbon Dioxide BUN Creatinine Glucose POC Glucose 110 H 126 H 130 H Magnesium AST ALT Alkaline Phosphatase Total Creatine Kinase NT-Pro-B Natriuret Pep Albumin Urine WBC (Auto) Crossmatch 12/08/18 17:44 WBC RBC Hgb Hct MCH MCHC RDW Plt Count Lymph % (Auto) Rankin % (Auto) Eos % (Auto) Lymph # Rankin # Eos # Seg Neutrophils % Seg Neutrophils # PT INR POC ABG pH POC ABG pCO2 POC ABG pO2 VBG pH Sodium Potassium Chloride Carbon Dioxide BUN Creatinine Glucose POC Glucose 113 H Magnesium AST ALT Alkaline Phosphatase Total Creatine Kinase NT-Pro-B Natriuret Pep Albumin Urine WBC (Auto) Crossmatch Allied health notes reviewed: nursing
[2018-12-09] MEDS: DUONEB *Not for PRN Use IH SCH ×2 (07:53→20:18)
--- NOTE | 2018-12-09 08:28 | Progress Note ---
Assessment and Plan Cultures: Blood culture 10/01/2018 MRSA 2 of 4. Blood culture 10/03/2018 MRSA Blood culture 10/08/2018 no growth Blood culture 10/11/2018 no growth Blood culture 10/21/2018 no growth Blood culture 11/01/2018 Staph haemolyticus 2 of 4 bottles, resistent to methicillin and MRSA 1 of 4 bottles Blood culture 11/04/2018 no growth Assessment: 67 y/o male with history of HTN, CVA, Obstructive Uropathy, Contracture, Multiple Decubitus Ulcers, PR, DM, OA, Seizure Disorder, COPD, Dementia, Debility, BPH, well known to ID due to multiple admissions secondary to ducubitus ulcers infections and recurrent bacteremia, last time admitted on 10/02/2018 found with MRSA bacteremia jessica from decubitus ulcers mainly active large left trochanteric with bone exposure and sacral with bone exposure. Patient's infection was deemed incurable and hospice was recommended. Patient was discharged back to [place] on IV vancomycin 1 gm every 48 hours for total 6 weeks ending 11/12/2018 via neck tunneled cath. Patient was readmitted on due to AMS, worsening SOB. Patient is lethargic and unable to provide history. At the [facility] he was found to have respiratory distress upon evaluation the morning of admission,pulse oximetry in the 80's: 1) Severe Sepsis: Resolved. Etiology most likely Recurrent Staph bacteremia +/- CAUTI. 2) Staph haemolyticus and MRSA bacteremia with recent MRSA bacteremia: Blood culture 11/01/2018 Staph haemolyticus 2 of 4 bottles and MRSA 1 of 4. Source likely multiple decubitus ulcers or Neck IV central line. Patient is failing vancomycin. He has a tunneled neck cath. Recent TTE negative for vegetations. On daptomycin. 3) Recent septic shock due to polymicrobial bacteremia ESBL and carbapenem resistant E coli, MDR Proteus, Strep and E faecalis on 07/29/2018 probably from multiple infected decubitus ulcers and less likely UTI. Repeat blood cultures 07/31/2018 showed same MDR E coli 1 of 4 bottles then 08/06/2018 blood cultures showed no growth. Patient was treated with Vabomere for 14 days. 4) Multiple infected decubitus ulcers: His prognosis has been poor and hospice has been recommended several times in the past but family has declined. declined. His wounds are not curable considering his contractures, bed bound status and poor nutritional status. There was also suspicion of septic arthritis of left hip from decubitus ulcer. S/p debridement of multiple pressure ulcerations on 11/07/2018- stage 4 left hip pressure ulceration was surgically excisionally debrided of necrotic bone, stage 3 sacral, right ankle and left heel pressure ulcers were then surgically, excisionally debrided of necrotic SQ fat, stage 4 right heel, left lateral heel and right lateral leg ulcerations were surgically, excisionally debrided of necrotic SQ tissue, muscle and fascia. Dr Man recommended bilateral AKA, patient and daughter refused. Dr Man recommended Orthopedic consultation for possible left hip disarticulation as his left hip joint is crumbling and has profuse purulent drainage. 5) Recurrent UTI: new bright placed this admission 6) Acute encephalopathy: multifactorial. 7) Acute resp failure: was on BIPAP now NC O2. EF 30-35% pericaldial and pleural effusion. 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 He needs to be on contact isolation. This cannot be cured with antibiotics. Needs to be hospice continue daptomycin at discharge will do daptomycin 400 mg IV q day for 6 weeks until 12/16/2018 follow-up [facility] prognosis. [facility] M: [phone] O:[phone] Subjective Date of service: 12/09/18 Principal diagnosis: Severe Sepsis; Ac. Hypoxemic Resp failure; Anemia; Seizure; UTI; BPH Interval history: Patient seen and examined. Asleep, easy to arouse. Reports no pain today. no fever. Objective - Exam Narrative Exam: General appearance: Asleep. Easy to arouse. No acute distress. Eyes: anicteric sclerae, moist conjunctivae; no lid-lag; PERRLA HENT: Atraumatic; oropharynx limited Neck: Trachea midline; supple, no thyromegaly or lymphadenopathy Lungs: CTA CV: RRR no murmur Abdomen: Soft, non-tender Extremities: marked legs contractions, multiple decubitus ulcers covered with dressings Skin: multiple skin tears Psych: Calm Neuro: asleep, easy to arouse - Constitutional Vitals: Vital Signs Temp Pulse Resp BP Pulse Ox 98.8 F 88 16 122/58 96 12/09/18 02:08 07/22/19 08:08 12/09/18 08:08 12/09/18 02:08 12/09/18 07:53 Temperature -Last 24 Hours Temperature 98.8 F Temperature 99.0 F Temperature 97.7 F - Labs CBC & Chem 7: 12/03/18 05:07 12/06/18 20:57 Labs: Abnormal lab results 12/08/18 12/08/18 12/09/18 Range/Units 12:27 17:44 00:20 POC Glucose 130 H 113 H 121 H (70-105) 12/09/18 Range/Units 06:42 POC Glucose 124 H (70-105)
[2018-12-09] MEDS: LOVENOX SUB-Q SCH (09:01)
[2018-12-09] MEDS: Centrum Liq FEEDTUBE SCH (09:02)
[2018-12-09] MEDS: KEPPRA FEEDTUBE SCH ×2 (09:02→23:08)
[2018-12-09] MEDS: COREG PO SCH ×2 (09:03→23:09)
[2018-12-09] MEDS: APRESOLINE PO SCH ×2 (09:03→23:08)
[2018-12-09] MEDS: VITAMIN C FEEDTUBE SCH ×2 (09:03→23:09)
[2018-12-09] MEDS: ZINC SULFATE PO SCH (09:04)
[2018-12-09] MEDS: SODIUM CHLORIDE FLUSH SYRINGE 10 ML IV SCH ×2 (09:14→23:09)
[2018-12-09] MEDS: DAPTOMYCIN IV SCH (10:56)
[2018-12-09] MEDS: NACL 0.9% IV SCH (10:56)
--- NOTE | 2018-12-09 13:28 | Progress Note ---
Assessment and Plan Assessment and plan: 67 YO Male Halfway Facility Resident as [facility] with HTN, CVA, Obstructive Uropathy, Diastolic CHF, Contracture, Sacral Decubitus Ulcers, [place], DM, OA, Seizure Disorder, COPD, Dementia, BPH presents to ED for evaluation. Pt is stuporous and unable to provide history. Pt history taken from ED Staff, EMS, and SNF Staff. As per staff, the patient was found to have respiratory distress upon evaluation this morning. Pt found to have pulse oximetry in the 80's. EMS notified and patient subsequently transported to [facility] for further care and evaluation. Pt seen and evaluated in ED and found to have UTI, Sepsis, Encephalopathy as well as Acute Hypoxemic Respiratory Failure. Pt initiated on NIPPV in ED with improvement in symptoms. Pt admitted to [facility] and initiated on Sepsis protocol. Prior admission on 10/01/18 reviewed. 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 He needs to be on contact isolation. This cannot be cured with antibiotics. recommend palliative care/comfort care or hospice, family are not interested in that option, continue daptomycin , at discharge will do daptomycin 400 mg IV q day for 6 weeks until 12/16/2018 sacral pressure ulcer -infected. POA WOUND CARE CONSULT. CONTINUE ABX. Debridement done by Dr Man Amputation recommended and the daughter refused Respiratory failure Supplemental oxygen, nebulizer therapy, mgt per pulmonology Anemia of chronic disease Transfused one unit PRBC hemoglobin is stable Seizure Continue current therapy, seizure precautions. BPH Continue Chaudhary catherter Dementia supportive care DVT prophylaxis Prophylactic lovenox POOR PROGNOSIS Disposition; pending SNF placement. . History Interval history: Review of systems Constitutional: No fevers, no malaise, no joint pains CVS: No chest pain, no orthopnea, no dyspnea on exertion, no pedal edema GI: No abdominal pain, no diarrhea, no vomiting, no constipation Respiratory: no wheezing, no coughing Hospitalist Physical - Physical exam Narrative exam: Not in cardiopulmonary distress. The patient appeared well nourished and normally developed. Vital signs as documented. Head exam is unremarkable. No scleral icterus . Neck is without jugular venous distension, thyromegaly, or carotid bruits. Lungs are clear to auscultation. Cardiac exam reveals regular rate and Rhythm. First and second heart sounds normal. No murmurs, rubs or gallops. Abdominal exam reveals normal bowel sounds, no masses, no organomegaly and no aortic enlargement. Extremities contracted extremities. APPOINTMENT CLERK: Alert and oriented 3. No focal weakness. Skin; multiple decubitus ulcers, including the sacrum and the heel. - Constitutional Vitals: Temp Pulse Resp BP Pulse Ox 98.6 F 91 H 18 122/69 96 12/09/18 08:12 12/09/18 09:03 12/09/18 08:12 12/09/18 09:03 12/09/18 08:12 General appearance: Present: no acute distress Results - Labs CBC & Chem 7: 12/27/18 04:23 12/27/18 04:23 Labs: Laboratory Last Values WBC 9.4 K/mm3 (4.5-11.0) 12/03/18 05:07 RBC 2.93 M/mm3 (3.65-5.03) L 12/03/18 05:07 Hgb 8.2 gm/dl (11.8-15.2) L 12/03/18 05:07 Hct 24.9 % (35.5-45.6) L 12/03/18 05:07 MCV 85 fl (84-94) 12/03/18 05:07 MCH 28 pg (28-32) 12/03/18 05:07 MCHC 33 % (32-34) 12/03/18 05:07 RDW 17.0 % (13.2-15.2) H 12/03/18 05:07 Plt Count 470 K/mm3 (140-440) H 12/03/18 05:07 Lymph % (Auto) 9.3 % (13.4-35.0) L 12/03/18 05:07 [place] % (Auto) 8.6 % (0.0-7.3) H 12/03/18 05:07 Eos % (Auto) 5.4 % (0.0-4.3) H 12/03/18 05:07 Baso % (Auto) 0.9 % (0.0-1.8) 12/03/18 05:07 Lymph # 0.9 K/mm3 (1.2-5.4) L 12/03/18 05:07 [place] # 0.8 K/mm3 (0.0-0.8) 12/03/18 05:07 Eos # 0.5 K/mm3 (0.0-0.4) H 12/03/18 05:07 Baso # 0.1 K/mm3 (0.0-0.1) 12/03/18 05:07 Seg Neutrophils % 75.8 % (40.0-70.0) H 12/03/18 05:07 Seg Neutrophils # 7.1 K/mm3 (1.8-7.7) 12/03/18 05:07 PT 16.3 Sec. (12.2-14.9) H 11/01/18 14:50 INR 1.35 (0.87-1.13) H 11/01/18 14:50 POC ABG pH 7.494 (7.35-7.45) H 11/01/18 15:27 POC ABG pCO2 34.5 (35-45) L 11/01/18 15:27 POC ABG pO2 139 (80-105) H 11/01/18 15:27 POC ABG HCO3 26.5 (22-26 mml/L) 11/01/18 15:27 POC ABG Total CO2 28 (23-27mmol/L) 11/01/18 15:27 POC ABG O2 Sat 99 11/01/18 15:27 POC ABG Base Excess 3 ((-2) - (+3)mmol/L) 11/01/18 15:27 VBG pH 7.499 (7.320-7.420) H 11/01/18 14:50 50 % 11/01/18 15:27 Sodium 141 mmol/L (137-145) 12/06/18 20:57 Potassium 4.0 mmol/L (3.6-5.0) 12/06/18 20:57 Chloride 107.2 mmol/L (98-107) H 12/06/18 20:57 Carbon Dioxide 22 mmol/L (22-30) 12/06/18 20:57 16 mmol/L 12/06/18 20:57 BUN 27 mg/dL (9-20) H 12/06/18 20:57 0.7 mg/dL (0.8-1.5) L 12/06/18 20:57 Estimated GFR > 60 ml/min 12/06/18 20:57 39 % 12/06/18 20:57 Glucose 89 mg/dL (75-100) 12/06/18 20:57 POC Glucose 114 (70-105) H 12/09/18 12:24 Lactic Acid 1.80 mmol/L (0.7-2.0) 11/01/18 14:50 Calcium 9.5 mg/dL (8.4-10.2) 12/06/18 20:57 Phosphorus 2.90 mg/dL (2.5-4.5) 11/22/18 09:43 Magnesium 2.50 mg/dL (1.7-2.3) H 12/06/18 20:57 0.30 mg/dL (0.1-1.2) 11/01/18 14:50 AST 90 units/L (5-40) H 11/01/18 14:50 ALT 77 units/L (7-56) H 11/01/18 14:50 350 units/L (35-129) H 11/01/18 14:50 72 units/L (55-170) 11/30/18 00:31 NT-Pro-B Natriuret Pep 6776 pg/mL (0-900) H 11/01/18 14:50 7.9 g/dL (6.3-8.2) 11/01/18 14:50 1.6 g/dL (3.9-5) L 11/01/18 14:50 0.3 % 11/01/18 14:50 14 units/L (13-60) 11/25/18 15:07 Yellow (Yellow) 11/01/18 15:57 Turbid (Clear) 11/01/18 15:57 6.0 (5.0-7.0) 11/01/18 15:57 Ur Specific [place] 1.016 (1.003-1.030) 11/01/18 15:57 100 mg/dl mg/dL (Negative) 11/01/18 15:57 Neg mg/dL (Negative) 11/01/18 15:57 Neg mg/dL (Negative) 11/01/18 15:57 Neg (Negative) 11/01/18 15:57 Neg (Negative) 11/01/18 15:57 Neg (Negative) 11/01/18 15:57 < 2.0 mg/dL (<2.0) 11/01/18 15:57 Ur Leukocyte Esterase Mod (Negative) 11/01/18 15:57 > 182.0 /HPF (0.0-6.0) H 11/01/18 15:57 40.0 /HPF (0.0-6.0) 11/01/18 15:57 U Epithel Cells (Auto) 8.0 /HPF (0-13.0) 11/01/18 15:57 3+ /HPF 11/01/18 15:57 3+ /HPF 11/01/18 15:57 Random Vancomycin 13.9 ug/mL (0-40.0) 11/02/18 05:05 Blood Type O POSITIVE 11/25/18 15:28 Antibody Screen Negative 11/25/18 15:28 Crossmatch See Detail 11/25/18 15:28 Active Medications - Current Medications Current Medications: Generic Name Dose Route Start Last Admin Trade Name Freq PRN Reason Stop Dose Admin Acetaminophen/Hydrocodone Bitart 1 each 11/15/18 04:51 12/05/18 04:08 [place] 5/325 PO 1 each Q4H PRN Administration Pain, Moderate (4-6) Albuterol 2.5 mg 11/01/18 17:15 Proventil IH Q3HRT PRN Shortness Of Breath Albuterol/Ipratropium 1 ampul 11/28/18 20:00 12/09/18 07:53 Duoneb *Not For Prn Use* IH 1 ampul BIDRT NORA Administration Lipase/Protease/Amylase 1 each 11/03/18 17:12 12/02/18 08:40 Pancreazadela Moore 10,500 Unit FEEDTUBE 1 each PRN PRN Administration For Clogged Feeding Tube Ascorbic Acid 500 mg 11/01/18 22:00 12/09/18 09:03 Vitamin C FEEDTUBE 500 mg BID NORA Administration Atorvastatin Calcium 40 mg 11/01/18 22:00 12/08/18 22:04 Lipitor FEEDTUBE 40 mg QHS NORA Administration Carvedilol 6.25 mg 11/08/18 13:00 12/09/18 09:03 Coreg PO 6.25 mg BID NORA Administration Clonidine HCl 0.2 mg 11/05/18 17:18 12/03/18 18:33 Catapres-Tts Patch TD 0.2 mg Tu NORA Administration Enoxaparin Sodium 40 mg 11/02/18 10:00 12/09/18 09:01 Lovenox SUB-Q 40 mg QDAY@1000 NORA Administration Hydralazine HCl 10 mg 11/25/18 22:00 12/09/18 09:03 Apresoline PO 10 mg Q12HR NORA Administration Daptomycin 400 mg/ Sodium 100 mls @ 200 mls/hr 11/25/18 11:00 12/09/18 10:56 Chloride IV 12/16/18 11:29 200 mls/hr Q24H NORA Administration Protocol Levetiracetam 500 mg 11/01/18 22:00 12/09/18 09:02 Keppra FEEDTUBE 500 mg BID NORA Administration Morphine Sulfate 2 mg 11/01/18 17:15 11/30/18 21:15 Morphine IV 2 mg Q4H PRN Administration Pain, Moderate (4-6) Multivitamins 5 ml 11/02/18 10:00 12/09/18 09:02 Centrum Liq FEEDTUBE 5 ml QDAY NORA Administration Simple Syrup 15 ml 11/03/18 17:12 11/16/18 13:40 Simple Syrup FEEDTUBE 15 ml PRN PRN Administration Hypoglycemia Simple Syrup 30 ml 11/03/18 17:12 Simple Syrup FEEDTUBE PRN PRN Hypoglycemia Sodium Bicarbonate 325 mg 11/03/18 17:12 12/02/18 08:40 Sodium Bicarbonate FEEDTUBE 325 mg PRN PRN Administration For Clogged Feeding Tube Sodium Chloride 10 ml 11/01/18 22:00 12/09/18 09:14 Sodium Chloride Flush Syringe 10 Ml IV 10 ml BID NORA Administration Sodium Chloride 10 ml 11/01/18 17:15 11/23/18 04:05 Sodium Chloride Flush Syringe 10 Ml IV 10 ml PRN PRN Administration LINE FLUSH Zinc Sulfate 220 mg 11/02/18 10:00 12/09/18 09:04 Zinc Sulfate PO 220 mg DAILY NORA Administration Nutrition/Malnutrition Assess - Dietary Evaluation Nutrition/Malnutrition Findings: Nutrition Notes Start: 11/04/18 16:00 Freq: Status: Active Protocol: Document 12/06/18 21:03 RM (Rec: 12/06/18 21:05 [id number]) Nutrition Notes Initial or Follow up Reassessment Current Diagnosis COPD,Diabetes,Sepsis, Hypertension,Heart Failure, Stroke Other Pertinent Diagnosis Sacral PUs, UTI, Dementia Current Diet Nepro at 40 ml/hr Labs/Tests No recent labs Pertinent Medications Reviewed Height 5 ft 8 in Weight 62.5 kg [place] Body Weight (kg) 70.00 BMI 20.9 Subjective/Other Information Observed Nepro infusing at goal rate. Percent of energy/protein needs met: 100%/100% Burn Absent Trauma Absent #1 Nutrition Diagnosis Inadequate oral intake Diagnosis Progress(for reassessment Continues documentation) Is patient on ventilator? No Is Patient Ambulatory and/or Out of Bed No REE-([facility]-confined to bed) 0425.697 Calculation Used for Recommendations [facility] Additional Notes Protein Needs: 76-95g (1.2-1. 5g/kg) Fluid Needs: 1 ml/kcal Nutrition Intervention Nutrition Support: Nepro 1.8 at 40 ml/hr. Water flush of 200 mls q 4 hrs . Kcal 1,728 Protein (gm) 78 Fluid (mL) 698 Goal #1 TF tolerance Goal #2 Continue to meet at least 75% of calorie and protein needs via TF Anticipated Discharge Needs: Unable to determine at this time Follow-Up By: 12/13/18 Additional Comments Follow for TF tolerance
--- NOTE | 2018-12-09 20:09 | Progress Note ---
Assessment and Plan Patient is weak and contracted and has multiple pressure wounds. Patient is awake and on room air at this time. No acute respiratory distress. O2 sat 96%. Patient is afebrile. Patient is on I/V daptomycin for MRSA. - Patient Problems (1) Respiratory failure Current Visit: Yes Status: Acute Qualifiers: Chronicity: acute Respiratory failure complication: hypoxia Qualified Code(s): J96.01 - Acute respiratory failure with hypoxia Plan to address problem: Continue O2 supplementation 2 L via nasal canula. Albuterol and Atrovent treatment q6h. Patient is on Diptomycine as per infectious diseases. Continue SQ Levonox. Recommend GI prophylexis. (2) Seizure Current Visit: Yes Status: Acute Plan to address problem: Management as per neurologist. (3) Sepsis Current Visit: Yes Status: Acute Plan to address problem: Patient is on Daptomycine as per infectious diseases. (4) UTI (urinary tract infection) Current Visit: Yes Status: Acute Qualifiers: Encounter type: initial encounter Plan to address problem: Patient is on Daptomycine as per infectious diseases. (5) ARF (acute renal failure) with tubular necrosis Current Visit: No Status: Acute Plan to address problem: Management as per Nephrology. Subjective Date of service: 12/09/18 Principal diagnosis: Severe Sepsis; Ac. Hypoxemic Resp failure; Anemia; Seizure; UTI; BPH Interval history: Patient is weak and contracted and has multiple pressure wounds. Patient is awake and on room air at this time. No acute respiratory distress. O2 sat 96%. Patient is afebrile. Patient is on I/V daptomycin for MRSA. Objective Vital Signs - 12hr 12/09/18 12/09/18 12/09/18 08:08 08:12 09:03 Temperature 98.6 F Pulse Rate 90 91 H Pulse Rate [ 88 Anterior Bilateral Throughout] Respiratory 18 Rate Respiratory 16 Rate [Anterior Bilateral Throughout] Blood Pressure 138/62 122/69 O2 Sat by Pulse 96 Oximetry Constitutional: no acute distress, alert Eyes: non-icteric ENT: oropharynx moist Neck: no lymphadenopathy, no JVD, other (mild stiffness / contracture) Effort: mildly labored Ascultation: Bilateral: diminished breath sounds, rhonchi Percussion: Bilateral: not dull Cardiovascular: regular rate and rhythm Gastrointestinal: normoactive bowel sounds, soft, non-tender, non-distended Integumentary: rash Extremities: no cyanosis, no edema, pulses normal, other (Patient has pressure ulcer at multiple areas, including sacral area.) Neurologic: non-focal exam, pupils equal and round, CN II-XII normal, other (+ contractures) Psychiatric: mood appropriate, affect normal CBC and BMP: 12/03/18 05:07 12/06/18 20:57 ABG, PT/INR, D-dimer: ABG POC ABG pH 7.494 (7.35-7.45) H 11/01/18 15:27 POC ABG pCO2 34.5 (35-45) L 11/01/18 15:27 POC ABG pO2 139 (80-105) H 11/01/18 15:27 POC ABG HCO3 26.5 (22-26 mml/L) 11/01/18 15:27 POC ABG Total CO2 28 (23-27mmol/L) 11/01/18 15:27 POC ABG O2 Sat 99 11/01/18 15:27 PT/INR, D-dimer PT 16.3 Sec. (12.2-14.9) H 11/01/18 14:50 INR 1.35 (0.87-1.13) H 11/01/18 14:50 Abnormal lab findings: Abnormal Labs 11/01/18 11/01/18 11/01/18 14:50 14:50 14:50 WBC 15.3 H RBC 2.76 L Hgb 7.9 L Hct 23.5 L MCH MCHC RDW 18.3 H Plt Count 567 H Lymph % (Auto) 6.5 L [place] % (Auto) 8.5 H Eos % (Auto) Lymph # 1.0 L [place] # 1.3 H Eos # Seg Neutrophils % 83.4 H Seg Neutrophils # 12.7 H PT 16.3 H INR 1.35 H POC ABG pH POC ABG pCO2 POC ABG pO2 VBG pH Sodium Potassium Chloride Carbon Dioxide BUN 49 H Creatinine Glucose 132 H POC Glucose Magnesium AST 90 H ALT 77 H Alkaline Phosphatase 350 H Total Creatine Kinase NT-Pro-B Natriuret Pep Albumin 1.6 L Urine WBC (Auto) Crossmatch 11/01/18 11/01/18 11/01/18 14:50 14:50 15:27 WBC RBC Hgb Hct MCH MCHC RDW Plt Count Lymph % (Auto) [place] % (Auto) Eos % (Auto) Lymph # [place] # Eos # Seg Neutrophils % Seg Neutrophils # PT INR POC ABG pH 7.494 H POC ABG pCO2 34.5 L POC ABG pO2 139 H VBG pH 7.499 H Sodium Potassium Chloride Carbon Dioxide BUN Creatinine Glucose POC Glucose Magnesium AST ALT Alkaline Phosphatase Total Creatine Kinase NT-Pro-B Natriuret Pep 6776 H Albumin Urine WBC (Auto) Crossmatch 11/01/18 11/03/18 11/03/18 15:57 03:41 03:41 WBC 12.8 H RBC 2.55 L Hgb 6.9 L Hct 22.2 L MCH 27 L MCHC 31 L RDW 17.9 H Plt Count 519 H Lymph % (Auto) [place] % (Auto) Eos % (Auto) Lymph # [place] # Eos # Seg Neutrophils % Seg Neutrophils # PT INR POC ABG pH POC ABG pCO2 POC ABG pO2 VBG pH Sodium 147 H Potassium Chloride 110.3 H Carbon Dioxide BUN 55 H Creatinine Glucose POC Glucose Magnesium AST ALT Alkaline Phosphatase Total Creatine Kinase NT-Pro-B Natriuret Pep Albumin Urine WBC (Auto) > 182.0 H Crossmatch 11/03/18 11/04/18 11/04/18 12:51 05:12 05:12 WBC 11.5 H RBC 2.94 L Hgb 8.3 L Hct 25.3 L MCH MCHC RDW 17.3 H Plt Count 514 H Lymph % (Auto) [place] % (Auto) Eos % (Auto) Lymph # [place] # Eos # Seg Neutrophils % Seg Neutrophils # PT INR POC ABG pH POC ABG pCO2 POC ABG pO2 VBG pH Sodium 147 H Potassium Chloride 112.4 H Carbon Dioxide BUN 52 H Creatinine Glucose POC Glucose Magnesium AST ALT Alkaline Phosphatase Total Creatine Kinase NT-Pro-B Natriuret Pep Albumin Urine WBC (Auto) Crossmatch See Detail 11/05/18 11/05/18 11/06/18 04:50 04:50 05:42 WBC RBC 3.03 L 2.80 L Hgb 8.7 L 7.9 L Hct 26.6 L 24.7 L MCH MCHC RDW 17.1 H 17.0 H Plt Count 502 H 478 H Lymph % (Auto) 10.4 L [place] % (Auto) 8.6 H Eos % (Auto) 4.7 H Lymph # 1.0 L [place] # Eos # 0.5 H Seg Neutrophils % 75.6 H Seg Neutrophils # PT INR POC ABG pH POC ABG pCO2 POC ABG pO2 VBG pH Sodium 149 H Potassium Chloride 114.4 H Carbon Dioxide 21 L BUN 50 H Creatinine Glucose 108 H POC Glucose Magnesium AST ALT Alkaline Phosphatase Total Creatine Kinase NT-Pro-B Natriuret Pep Albumin Urine WBC (Auto) Crossmatch 11/06/18 11/11/18 11/12/18 05:42 18:54 00:22 WBC RBC Hgb Hct MCH MCHC RDW Plt Count Lymph % (Auto) [place] % (Auto) Eos % (Auto) Lymph # [place] # Eos # Seg Neutrophils % Seg Neutrophils # PT INR POC ABG pH POC ABG pCO2 POC ABG pO2 VBG pH Sodium 149 H Potassium Chloride 113.4 H Carbon Dioxide BUN 50 H Creatinine Glucose 121 H POC Glucose 114 H 123 H Magnesium AST ALT Alkaline Phosphatase Total Creatine Kinase NT-Pro-B Natriuret Pep Albumin Urine WBC (Auto) Crossmatch 11/12/18 11/12/18 11/13/18 06:49 11:35 06:34 WBC RBC Hgb Hct MCH MCHC RDW Plt Count Lymph % (Auto) [place] % (Auto) Eos % (Auto) Lymph # [place] # Eos # Seg Neutrophils % Seg Neutrophils # PT INR POC ABG pH POC ABG pCO2 POC ABG pO2 VBG pH Sodium Potassium Chloride Carbon Dioxide BUN Creatinine Glucose POC Glucose 129 H 123 H 128 H Magnesium AST ALT Alkaline Phosphatase Total Creatine Kinase NT-Pro-B Natriuret Pep Albumin Urine WBC (Auto) Crossmatch 11/13/18 11/13/18 11/13/18 09:26 09:26 15:13 WBC RBC 3.08 L Hgb 8.6 L Hct 27.3 L MCH MCHC 31 L RDW 18.3 H Plt Count 504 H Lymph % (Auto) 11.7 L [place] % (Auto) 7.5 H Eos % (Auto) 7.0 H Lymph # [place] # Eos # 0.7 H Seg Neutrophils % 72.9 H Seg Neutrophils # PT INR POC ABG pH POC ABG pCO2 POC ABG pO2 VBG pH Sodium 153 H Potassium 6.3 H* 5.8 H Chloride 122.3 H Carbon Dioxide 21 L BUN 38 H Creatinine Glucose 112 H POC Glucose Magnesium AST ALT Alkaline Phosphatase Total Creatine Kinase NT-Pro-B Natriuret Pep Albumin Urine WBC (Auto) Crossmatch 11/13/18 11/13/18 11/14/18 22:10 23:45 13:17 WBC RBC Hgb Hct MCH MCHC RDW Plt Count Lymph % (Auto) [place] % (Auto) Eos % (Auto) Lymph # [place] # Eos # Seg Neutrophils % Seg Neutrophils # PT INR POC ABG pH POC ABG pCO2 POC ABG pO2 VBG pH Sodium 155 H Potassium 5.3 H Chloride 122.3 H Carbon Dioxide BUN 35 H Creatinine Glucose 113 H POC Glucose 111 H 142 H Magnesium AST ALT Alkaline Phosphatase Total Creatine Kinase NT-Pro-B Natriuret Pep Albumin Urine WBC (Auto) Crossmatch 11/14/18 11/15/18 11/15/18 19:08 00:31 06:45 WBC RBC Hgb Hct MCH MCHC RDW Plt Count Lymph % (Auto) [place] % (Auto) Eos % (Auto) Lymph # [place] # Eos # Seg Neutrophils % Seg Neutrophils # PT INR POC ABG pH POC ABG pCO2 POC ABG pO2 VBG pH Sodium Potassium Chloride Carbon Dioxide BUN Creatinine Glucose POC Glucose 116 H 125 H 131 H Magnesium AST ALT Alkaline Phosphatase Total Creatine Kinase NT-Pro-B Natriuret Pep Albumin Urine WBC (Auto) Crossmatch 11/15/18 11/15/18 11/15/18 07:13 07:13 19:03 WBC 13.2 H RBC 2.81 L Hgb 7.8 L Hct 24.5 L MCH MCHC RDW 18.2 H Plt Count 454 H Lymph % (Auto) 9.0 L [place] % (Auto) 7.5 H Eos % (Auto) Lymph # [place] # 1.0 H Eos # 0.5 H Seg Neutrophils % 78.8 H Seg Neutrophils # 10.4 H PT INR POC ABG pH POC ABG pCO2 POC ABG pO2 VBG pH Sodium 149 H Potassium 5.2 H Chloride 117.2 H Carbon Dioxide BUN 38 H Creatinine Glucose 114 H POC Glucose 141 H Magnesium AST ALT Alkaline Phosphatase Total Creatine Kinase NT-Pro-B Natriuret Pep Albumin Urine WBC (Auto) Crossmatch 11/16/18 11/16/18 11/16/18 01:15 01:15 06:45 WBC RBC Hgb Hct MCH MCHC RDW Plt Count Lymph % (Auto) [place] % (Auto) Eos % (Auto) Lymph # [place] # Eos # Seg Neutrophils % Seg Neutrophils # PT INR POC ABG pH POC ABG pCO2 POC ABG pO2 VBG pH Sodium Potassium 5.3 H Chloride Carbon Dioxide BUN Creatinine Glucose POC Glucose 129 H Magnesium 2.60 H AST ALT Alkaline Phosphatase Total Creatine Kinase NT-Pro-B Natriuret Pep Albumin Urine WBC (Auto) Crossmatch 11/16/18 11/16/18 11/17/18 13:20 18:02 00:16 WBC RBC Hgb Hct MCH MCHC RDW Plt Count Lymph % (Auto) [place] % (Auto) Eos % (Auto) Lymph # [place] # Eos # Seg Neutrophils % Seg Neutrophils # PT INR POC ABG pH POC ABG pCO2 POC ABG pO2 VBG pH Sodium Potassium Chloride Carbon Dioxide BUN Creatinine Glucose POC Glucose 130 H 127 H 120 H Magnesium AST ALT Alkaline Phosphatase Total Creatine Kinase NT-Pro-B Natriuret Pep Albumin Urine WBC (Auto) Crossmatch 11/17/18 11/17/18 11/17/18 05:48 08:02 08:02 WBC RBC Hgb 7.5 L Hct 23.5 L MCH MCHC RDW Plt Count Lymph % (Auto) [place] % (Auto) Eos % (Auto) Lymph # [place] # Eos # Seg Neutrophils % Seg Neutrophils # PT INR POC ABG pH POC ABG pCO2 POC ABG pO2 VBG pH Sodium Potassium Chloride 110.1 H Carbon Dioxide 21 L BUN 38 H Creatinine Glucose 121 H POC Glucose 130 H Magnesium AST ALT Alkaline Phosphatase Total Creatine Kinase NT-Pro-B Natriuret Pep Albumin Urine WBC (Auto) Crossmatch 11/17/18 11/17/18 11/18/18 12:17 16:48 06:00 WBC RBC Hgb Hct MCH MCHC RDW Plt Count Lymph % (Auto) [place] % (Auto) Eos % (Auto) Lymph # [place] # Eos # Seg Neutrophils % Seg Neutrophils # PT INR POC ABG pH POC ABG pCO2 POC ABG pO2 VBG pH Sodium Potassium Chloride Carbon Dioxide BUN Creatinine Glucose POC Glucose 140 H 120 H 137 H Magnesium AST ALT Alkaline Phosphatase Total Creatine Kinase NT-Pro-B Natriuret Pep Albumin Urine WBC (Auto) Crossmatch 11/19/18 11/19/18 11/19/18 00:20 05:35 06:11 WBC RBC Hgb Hct MCH MCHC RDW Plt Count Lymph % (Auto) [place] % (Auto) Eos % (Auto) Lymph # [place] # Eos # Seg Neutrophils % Seg Neutrophils # PT INR POC ABG pH POC ABG pCO2 POC ABG pO2 VBG pH Sodium Potassium Chloride Carbon Dioxide BUN Creatinine Glucose POC Glucose 111 H 126 H Magnesium AST ALT Alkaline Phosphatase Total Creatine Kinase 53 L NT-Pro-B Natriuret Pep Albumin Urine WBC (Auto) Crossmatch 11/19/18 11/19/18 11/20/18 11:37 23:43 06:52 WBC RBC Hgb Hct MCH MCHC RDW Plt Count Lymph % (Auto) [place] % (Auto) Eos % (Auto) Lymph # [place] # Eos # Seg Neutrophils % Seg Neutrophils # PT INR POC ABG pH POC ABG pCO2 POC ABG pO2 VBG pH Sodium Potassium Chloride Carbon Dioxide BUN Creatinine Glucose POC Glucose 139 H 145 H 125 H Magnesium AST ALT Alkaline Phosphatase Total Creatine Kinase NT-Pro-B Natriuret Pep Albumin Urine WBC (Auto) Crossmatch 11/20/18 11/20/18 11/20/18 09:55 09:55 11:49 WBC RBC 3.04 L Hgb 8.4 L Hct 26.1 L MCH MCHC RDW 17.5 H Plt Count Lymph % (Auto) [place] % (Auto) Eos % (Auto) Lymph # [place] # Eos # Seg Neutrophils % Seg Neutrophils # PT INR POC ABG pH POC ABG pCO2 POC ABG pO2 VBG pH Sodium 149 H Potassium Chloride 114.5 H Carbon Dioxide 21 L BUN 35 H Creatinine Glucose 127 H POC Glucose 150 H Magnesium AST ALT Alkaline Phosphatase Total Creatine Kinase NT-Pro-B Natriuret Pep Albumin Urine WBC (Auto) Crossmatch 11/20/18 11/20/18 11/21/18 18:02 23:49 06:14 WBC RBC Hgb Hct MCH MCHC RDW Plt Count Lymph % (Auto) [place] % (Auto) Eos % (Auto) Lymph # [place] # Eos # Seg Neutrophils % Seg Neutrophils # PT INR POC ABG pH POC ABG pCO2 POC ABG pO2 VBG pH Sodium Potassium Chloride Carbon Dioxide BUN Creatinine Glucose POC Glucose 131 H 137 H 133 H Magnesium AST ALT Alkaline Phosphatase Total Creatine Kinase NT-Pro-B Natriuret Pep Albumin Urine WBC (Auto) Crossmatch 11/21/18 11/21/18 11/21/18 10:00 12:09 18:04 WBC RBC Hgb Hct MCH MCHC RDW Plt Count Lymph % (Auto) [place] % (Auto) Eos % (Auto) Lymph # [place] # Eos # Seg Neutrophils % Seg Neutrophils # PT INR POC ABG pH POC ABG pCO2 POC ABG pO2 VBG pH Sodium Potassium Chloride 110.6 H Carbon Dioxide BUN 31 H Creatinine Glucose 119 H POC Glucose 116 H 126 H Magnesium AST ALT Alkaline Phosphatase Total Creatine Kinase NT-Pro-B Natriuret Pep Albumin Urine WBC (Auto) Crossmatch 11/22/18 11/22/18 11/22/18 00:14 05:47 06:23 WBC RBC Hgb Hct MCH MCHC RDW Plt Count Lymph % (Auto) [place] % (Auto) Eos % (Auto) Lymph # [place] # Eos # Seg Neutrophils % Seg Neutrophils # PT INR POC ABG pH POC ABG pCO2 POC ABG pO2 VBG pH Sodium Potassium Chloride 107.6 H Carbon Dioxide BUN 32 H Creatinine 0.7 L Glucose 116 H POC Glucose 122 H 119 H Magnesium AST ALT Alkaline Phosphatase Total Creatine Kinase NT-Pro-B Natriuret Pep Albumin Urine WBC (Auto) Crossmatch 11/22/18 11/22/18 11/22/18 08:40 12:19 17:39 WBC RBC Hgb Hct MCH MCHC RDW Plt Count Lymph % (Auto) [place] % (Auto) Eos % (Auto) Lymph # [place] # Eos # Seg Neutrophils % Seg Neutrophils # PT INR POC ABG pH POC ABG pCO2 POC ABG pO2 VBG pH Sodium Potassium Chloride Carbon Dioxide BUN Creatinine Glucose POC Glucose 150 H 111 H 108 H Magnesium AST ALT Alkaline Phosphatase Total Creatine Kinase NT-Pro-B Natriuret Pep Albumin Urine WBC (Auto) Crossmatch 11/23/18 11/23/18 11/23/18 00:36 05:37 05:56 WBC RBC Hgb Hct MCH MCHC RDW Plt Count Lymph % (Auto) [place] % (Auto) Eos % (Auto) Lymph # [place] # Eos # Seg Neutrophils % Seg Neutrophils # PT INR POC ABG pH POC ABG pCO2 POC ABG pO2 VBG pH Sodium 136 L Potassium Chloride Carbon Dioxide BUN 30 H Creatinine 0.7 L Glucose 103 H POC Glucose 125 H 122 H Magnesium 2.50 H AST ALT Alkaline Phosphatase Total Creatine Kinase NT-Pro-B Natriuret Pep Albumin Urine WBC (Auto) Crossmatch 11/23/18 11/23/18 11/23/18 11:56 17:39 23:40 WBC RBC Hgb Hct MCH MCHC RDW Plt Count Lymph % (Auto) [place] % (Auto) Eos % (Auto) Lymph # [place] # Eos # Seg Neutrophils % Seg Neutrophils # PT INR POC ABG pH POC ABG pCO2 POC ABG pO2 VBG pH Sodium Potassium Chloride Carbon Dioxide BUN Creatinine Glucose POC Glucose 121 H 113 H 117 H Magnesium AST ALT Alkaline Phosphatase Total Creatine Kinase NT-Pro-B Natriuret Pep Albumin Urine WBC (Auto) Crossmatch 11/24/18 11/24/18 11/24/18 05:13 12:00 18:13 WBC RBC Hgb Hct MCH MCHC RDW Plt Count Lymph % (Auto) [place] % (Auto) Eos % (Auto) Lymph # [place] # Eos # Seg Neutrophils % Seg Neutrophils # PT INR POC ABG pH POC ABG pCO2 POC ABG pO2 VBG pH Sodium Potassium Chloride Carbon Dioxide BUN Creatinine Glucose POC Glucose 143 H 123 H 124 H Magnesium AST ALT Alkaline Phosphatase Total Creatine Kinase NT-Pro-B Natriuret Pep Albumin Urine WBC (Auto) Crossmatch 11/24/18 11/25/18 11/25/18 23:34 05:25 05:25 WBC RBC 2.48 L Hgb 6.8 L Hct 21.2 L MCH MCHC RDW 17.7 H Plt Count Lymph % (Auto) [place] % (Auto) Eos % (Auto) Lymph # [place] # Eos # Seg Neutrophils % Seg Neutrophils # PT INR POC ABG pH POC ABG pCO2 POC ABG pO2 VBG pH Sodium Potassium Chloride 108.8 H Carbon Dioxide BUN 30 H Creatinine 0.7 L Glucose 112 H POC Glucose 115 H Magnesium AST ALT Alkaline Phosphatase Total Creatine Kinase NT-Pro-B Natriuret Pep Albumin Urine WBC (Auto) Crossmatch 11/25/18 11/25/18 11/25/18 06:46 11:15 11:28 WBC RBC Hgb 7.4 L Hct 23.0 L MCH MCHC RDW Plt Count Lymph % (Auto) [place] % (Auto) Eos % (Auto) Lymph # [place] # Eos # Seg Neutrophils % Seg Neutrophils # PT INR POC ABG pH POC ABG pCO2 POC ABG pO2 VBG pH Sodium Potassium Chloride Carbon Dioxide BUN Creatinine Glucose POC Glucose 133 H 127 H Magnesium AST ALT Alkaline Phosphatase Total Creatine Kinase NT-Pro-B Natriuret Pep Albumin Urine WBC (Auto) Crossmatch 11/25/18 11/25/18 11/25/18 15:28 17:32 23:45 WBC RBC Hgb Hct MCH MCHC RDW Plt Count Lymph % (Auto) [place] % (Auto) Eos % (Auto) Lymph # [place] # Eos # Seg Neutrophils % Seg Neutrophils # PT INR POC ABG pH POC ABG pCO2 POC ABG pO2 VBG pH Sodium Potassium Chloride Carbon Dioxide BUN Creatinine Glucose POC Glucose 115 H 130 H Magnesium AST ALT Alkaline Phosphatase Total Creatine Kinase NT-Pro-B Natriuret Pep Albumin Urine WBC (Auto) Crossmatch See Detail 11/26/18 11/26/18 11/26/18 06:13 06:20 06:20 WBC RBC 2.76 L Hgb 7.7 L Hct 23.4 L MCH MCHC RDW 17.5 H Plt Count Lymph % (Auto) [place] % (Auto) Eos % (Auto) Lymph # [place] # Eos # Seg Neutrophils % Seg Neutrophils # PT INR POC ABG pH POC ABG pCO2 POC ABG pO2 VBG pH Sodium Potassium Chloride 109.9 H Carbon Dioxide BUN 30 H Creatinine 0.6 L Glucose 121 H POC Glucose 129 H Magnesium AST ALT Alkaline Phosphatase Total Creatine Kinase NT-Pro-B Natriuret Pep Albumin Urine WBC (Auto) Crossmatch 11/26/18 11/26/18 11/27/18 12:06 16:35 06:04 WBC RBC Hgb Hct MCH MCHC RDW Plt Count Lymph % (Auto) [place] % (Auto) Eos % (Auto) Lymph # [place] # Eos # Seg Neutrophils % Seg Neutrophils # PT INR POC ABG pH POC ABG pCO2 POC ABG pO2 VBG pH Sodium Potassium Chloride Carbon Dioxide BUN Creatinine Glucose POC Glucose 139 H 107 H 126 H Magnesium AST ALT Alkaline Phosphatase Total Creatine Kinase NT-Pro-B Natriuret Pep Albumin Urine WBC (Auto) Crossmatch 11/27/18 11/27/18 11/28/18 13:14 17:47 07:03 WBC RBC Hgb Hct MCH MCHC RDW Plt Count Lymph % (Auto) [place] % (Auto) Eos % (Auto) Lymph # [place] # Eos # Seg Neutrophils % Seg Neutrophils # PT INR POC ABG pH POC ABG pCO2 POC ABG pO2 VBG pH Sodium Potassium Chloride Carbon Dioxide BUN Creatinine Glucose POC Glucose 130 H 115 H 118 H Magnesium AST ALT Alkaline Phosphatase Total Creatine Kinase NT-Pro-B Natriuret Pep Albumin Urine WBC (Auto) Crossmatch 11/28/18 11/29/18 11/29/18 11:38 00:35 04:56 WBC RBC Hgb Hct MCH MCHC RDW Plt Count Lymph % (Auto) [place] % (Auto) Eos % (Auto) Lymph # [place] # Eos # Seg Neutrophils % Seg Neutrophils # PT INR POC ABG pH POC ABG pCO2 POC ABG pO2 VBG pH Sodium Potassium Chloride Carbon Dioxide BUN Creatinine Glucose POC Glucose 126 H 107 H Magnesium AST ALT Alkaline Phosphatase Total Creatine Kinase 50 L NT-Pro-B Natriuret Pep Albumin Urine WBC (Auto) Crossmatch 11/29/18 11/29/18 11/29/18 05:49 11:46 18:17 WBC RBC Hgb Hct MCH MCHC RDW Plt Count Lymph % (Auto) [place] % (Auto) Eos % (Auto) Lymph # [place] # Eos # Seg Neutrophils % Seg Neutrophils # PT INR POC ABG pH POC ABG pCO2 POC ABG pO2 VBG pH Sodium Potassium Chloride Carbon Dioxide BUN Creatinine Glucose POC Glucose 128 H 140 H 115 H Magnesium AST ALT Alkaline Phosphatase Total Creatine Kinase NT-Pro-B Natriuret Pep Albumin Urine WBC (Auto) Crossmatch 11/30/18 11/30/18 11/30/18 00:00 03:30 03:30 WBC RBC 2.97 L Hgb 8.1 L Hct 25.5 L MCH 27 L MCHC RDW 17.7 H Plt Count Lymph % (Auto) 9.2 L [place] % (Auto) 10.0 H Eos % (Auto) 4.6 H Lymph # 1.0 L [place] # 1.1 H Eos # 0.5 H Seg Neutrophils % 75.6 H Seg Neutrophils # 8.4 H PT INR POC ABG pH POC ABG pCO2 POC ABG pO2 VBG pH Sodium Potassium Chloride Carbon Dioxide BUN 31 H Creatinine 0.7 L Glucose POC Glucose 120 H Magnesium AST ALT Alkaline Phosphatase Total Creatine Kinase NT-Pro-B Natriuret Pep Albumin Urine WBC (Auto) Crossmatch 11/30/18 11/30/18 11/30/18 06:54 11:45 16:59 WBC RBC Hgb Hct MCH MCHC RDW Plt Count Lymph % (Auto) [place] % (Auto) Eos % (Auto) Lymph # [place] # Eos # Seg Neutrophils % Seg Neutrophils # PT INR POC ABG pH POC ABG pCO2 POC ABG pO2 VBG pH Sodium Potassium Chloride Carbon Dioxide BUN Creatinine Glucose POC Glucose 120 H 123 H 111 H Magnesium AST ALT Alkaline Phosphatase Total Creatine Kinase NT-Pro-B Natriuret Pep Albumin Urine WBC (Auto) Crossmatch 12/01/18 12/01/18 12/01/18 00:20 05:58 11:33 WBC RBC Hgb Hct MCH MCHC RDW Plt Count Lymph % (Auto) [place] % (Auto) Eos % (Auto) Lymph # [place] # Eos # Seg Neutrophils % Seg Neutrophils # PT INR POC ABG pH POC ABG pCO2 POC ABG pO2 VBG pH Sodium Potassium Chloride Carbon Dioxide BUN Creatinine Glucose POC Glucose 113 H 127 H 138 H Magnesium AST ALT Alkaline Phosphatase Total Creatine Kinase NT-Pro-B Natriuret Pep Albumin Urine WBC (Auto) Crossmatch 12/02/18 12/03/18 12/03/18 00:33 05:07 05:07 WBC RBC 2.93 L Hgb 8.2 L Hct 24.9 L MCH MCHC RDW 17.0 H Plt Count 470 H Lymph % (Auto) 9.3 L [place] % (Auto) 8.6 H Eos % (Auto) 5.4 H Lymph # 0.9 L [place] # Eos # 0.5 H Seg Neutrophils % 75.8 H Seg Neutrophils # PT INR POC ABG pH POC ABG pCO2 POC ABG pO2 VBG pH Sodium Potassium Chloride Carbon Dioxide BUN 30 H Creatinine 0.6 L Glucose 115 H POC Glucose 110 H Magnesium AST ALT Alkaline Phosphatase Total Creatine Kinase NT-Pro-B Natriuret Pep Albumin Urine WBC (Auto) Crossmatch 12/03/18 12/03/18 12/03/18 05:58 11:49 17:44 WBC RBC Hgb Hct MCH MCHC RDW Plt Count Lymph % (Auto) [place] % (Auto) Eos % (Auto) Lymph # [place] # Eos # Seg Neutrophils % Seg Neutrophils # PT INR POC ABG pH POC ABG pCO2 POC ABG pO2 VBG pH Sodium Potassium Chloride Carbon Dioxide BUN Creatinine Glucose POC Glucose 127 H 138 H 127 H Magnesium AST ALT Alkaline Phosphatase Total Creatine Kinase NT-Pro-B Natriuret Pep Albumin Urine WBC (Auto) Crossmatch 12/05/18 12/05/18 12/05/18 00:22 05:53 17:18 WBC RBC Hgb Hct MCH MCHC RDW Plt Count Lymph % (Auto) [place] % (Auto) Eos % (Auto) Lymph # [place] # Eos # Seg Neutrophils % Seg Neutrophils # PT INR POC ABG pH POC ABG pCO2 POC ABG pO2 VBG pH Sodium Potassium Chloride Carbon Dioxide BUN Creatinine Glucose POC Glucose 124 H 121 H 112 H Magnesium AST ALT Alkaline Phosphatase Total Creatine Kinase NT-Pro-B Natriuret Pep Albumin Urine WBC (Auto) Crossmatch 12/06/18 12/06/18 12/06/18 00:07 06:16 11:43 WBC RBC Hgb Hct MCH MCHC RDW Plt Count Lymph % (Auto) [place] % (Auto) Eos % (Auto) Lymph # [place] # Eos # Seg Neutrophils % Seg Neutrophils # PT INR POC ABG pH POC ABG pCO2 POC ABG pO2 VBG pH Sodium Potassium Chloride Carbon Dioxide BUN Creatinine Glucose POC Glucose 111 H 117 H 121 H Magnesium AST ALT Alkaline Phosphatase Total Creatine Kinase NT-Pro-B Natriuret Pep Albumin Urine WBC (Auto) Crossmatch 12/06/18 12/07/18 12/07/18 20:57 06:41 12:09 WBC RBC Hgb Hct MCH MCHC RDW Plt Count Lymph % (Auto) [place] % (Auto) Eos % (Auto) Lymph # [place] # Eos # Seg Neutrophils % Seg Neutrophils # PT INR POC ABG pH POC ABG pCO2 POC ABG pO2 VBG pH Sodium Potassium Chloride 107.2 H Carbon Dioxide BUN 27 H Creatinine 0.7 L Glucose POC Glucose 128 H 137 H Magnesium 2.50 H AST ALT Alkaline Phosphatase Total Creatine Kinase NT-Pro-B Natriuret Pep Albumin Urine WBC (Auto) Crossmatch 12/07/18 12/08/18 12/08/18 19:29 05:44 12:27 WBC RBC Hgb Hct MCH MCHC RDW Plt Count Lymph % (Auto) [place] % (Auto) Eos % (Auto) Lymph # [place] # Eos # Seg Neutrophils % Seg Neutrophils # PT INR POC ABG pH POC ABG pCO2 POC ABG pO2 VBG pH Sodium Potassium Chloride Carbon Dioxide BUN Creatinine Glucose POC Glucose 110 H 126 H 130 H Magnesium AST ALT Alkaline Phosphatase Total Creatine Kinase NT-Pro-B Natriuret Pep Albumin Urine WBC (Auto) Crossmatch 12/08/18 12/09/18 12/09/18 17:44 00:20 06:42 WBC RBC Hgb Hct MCH MCHC RDW Plt Count Lymph % (Auto) [place] % (Auto) Eos % (Auto) Lymph # [place] # Eos # Seg Neutrophils % Seg Neutrophils # PT INR POC ABG pH POC ABG pCO2 POC ABG pO2 VBG pH Sodium Potassium Chloride Carbon Dioxide BUN Creatinine Glucose POC Glucose 113 H 121 H 124 H Magnesium AST ALT Alkaline Phosphatase Total Creatine Kinase NT-Pro-B Natriuret Pep Albumin Urine WBC (Auto) Crossmatch 12/09/18 12/09/18 12:24 18:41 WBC RBC Hgb Hct MCH MCHC RDW Plt Count Lymph % (Auto) [place] % (Auto) Eos % (Auto) Lymph # [place] # Eos # Seg Neutrophils % Seg Neutrophils # PT INR POC ABG pH POC ABG pCO2 POC ABG pO2 VBG pH Sodium Potassium Chloride Carbon Dioxide BUN Creatinine Glucose POC Glucose 114 H 109 H Magnesium AST ALT Alkaline Phosphatase Total Creatine Kinase NT-Pro-B Natriuret Pep Albumin Urine WBC (Auto) Crossmatch Allied health notes reviewed: nursing
--- NOTE | 2018-12-10 07:56 | Progress Note ---
Assessment and Plan Cultures: Blood culture 10/01/2018 MRSA 2 of 4. Blood culture 10/03/2018 MRSA Blood culture 10/08/2018 no growth Blood culture 10/11/2018 no growth Blood culture 10/21/2018 no growth Blood culture 11/01/2018 Staph haemolyticus 2 of 4 bottles, resistent to methicillin and MRSA 1 of 4 bottles Blood culture 11/04/2018 no growth Assessment: 67 y/o male with history of HTN, CVA, Obstructive Uropathy, Contracture, Multiple Decubitus Ulcers, MS, DM, OA, Seizure Disorder, COPD, Dementia, Debility, BPH, well known to ID due to multiple admissions secondary to ducubitus ulcers infections and recurrent bacteremia, last time admitted on 10/02/2018 found with MRSA bacteremia jessica from decubitus ulcers mainly active large left trochanteric with bone exposure and sacral with bone exposure. Patient's infection was deemed incurable and hospice was recommended. [facility] IV vancomycin 1 gm every 48 hours for total 6 weeks ending 11/12/2018 via neck tunneled cath. Patient was readmitted on due to AMS, worsening SOB. Patient is lethargic and unable to provide history. At the [facility] he was found to have respiratory distress upon evaluation the morning of admission,pulse oximetry in the 80's: 1) Severe Sepsis: Resolved. Etiology most likely Recurrent Staph bacteremia +/- CAUTI. 2) Staph haemolyticus and MRSA bacteremia with recent MRSA bacteremia: Blood culture 11/01/2018 Staph haemolyticus 2 of 4 bottles and MRSA 1 of 4. Source likely multiple decubitus ulcers or Neck IV central line. Patient is failing vancomycin. He has a tunneled neck cath. Recent TTE negative for vegetations. On daptomycin. 3) Recent septic shock due to polymicrobial bacteremia ESBL and carbapenem resistant E coli, MDR Proteus, Strep and E faecalis on 07/29/2018 probably from multiple infected decubitus ulcers and less likely UTI. Repeat blood cultures 07/31/2018 showed same MDR E coli 1 of 4 bottles then 08/06/2018 blood cultures showed no growth. Patient was treated with Vabomere for 14 days. 4) Multiple infected decubitus ulcers: His prognosis has been poor and hospice has been recommended several times in the past but family has declined. declined. His wounds are not curable considering his contractures, bed bound status and poor nutritional status. There was also suspicion of septic arthritis of left hip from decubitus ulcer. S/p debridement of multiple pressure ulcerations on 11/07/2018- stage 4 left hip pressure ulceration was surgically excisionally debrided of necrotic bone, stage 3 sacral, right ankle and left heel pressure ulcers were then surgically, excisionally debrided of necrotic SQ fat, stage 4 right heel, left lateral heel and right lateral leg ulcerations were surgically, excisionally debrided of necrotic SQ tissue, muscle and fascia. Dr Man recommended bilateral AKA, patient and daughter refused. Dr Man recommended Orthopedic consultation for possible left hip disarticulation as his left hip joint is crumbling and has profuse purulent drainage. 5) Recurrent UTI: new bright placed this admission 6) Acute encephalopathy: multifactorial. 7) Acute resp failure: was on BIPAP now NC O2. EF 30-35% pericaldial and pleural effusion. 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 He needs to be on contact isolation. This cannot be cured with antibiotics. Needs to be hospice continue daptomycin at discharge will do daptomycin 400 mg IV q day for 6 weeks until 12/16/2018 d/w with bedside nurse and wound care regarding dressing changes Grim prognosis. [facility] M: [phone] O:[phone] Subjective Date of service: 12/10/18 Principal diagnosis: Severe Sepsis; Ac. Hypoxemic Resp failure; Anemia; Seizure; UTI; BPH Interval history: Patient seen and examined. Awake, alert. No generalized pain reported. No fevers. Objective - Exam Narrative Exam: General appearance: Awake. Alert.. No acute distress. Eyes: anicteric sclerae, moist conjunctivae; no lid-lag; PERRLA HENT: Atraumatic; oropharynx limited Neck: Trachea midline; supple, no thyromegaly or lymphadenopathy Lungs: CTA CV: RRR no murmur Abdomen: Soft, non-tender Extremities: marked legs contractions, multiple decubitus ulcers covered with dressings. Right leg dressing with serosanguinous drainage. Skin: multiple skin tears Psych: Calm Neuro: asleep, easy to arouse - Constitutional Vitals: Vital Signs Temp Pulse Resp BP Pulse Ox 97.6 F 93 H 18 133/75 95 12/10/18 02:00 12/10/18 02:00 12/10/18 02:00 12/10/18 02:00 12/10/18 02:00 Temperature -Last 24 Hours Temperature 97.6 F Temperature 98.9 F Temperature 98.7 F Temperature 98.6 F - Labs CBC & Chem 7: 12/03/18 05:07 12/06/18 20:57 Labs: Abnormal lab results 12/09/18 12/09/18 12/09/18 Range/Units 12:24 18:41 23:48 POC Glucose 114 H 109 H 128 H (70-105) 12/10/18 Range/Units 07:07 POC Glucose 111 H (70-105)
[2018-12-10] MEDS: DUONEB *Not for PRN Use IH SCH ×2 (09:01→19:18)
[2018-12-10] MEDS: LOVENOX SUB-Q SCH (11:43)
[2018-12-10] MEDS: VITAMIN C FEEDTUBE SCH ×2 (11:44→23:13)
[2018-12-10] MEDS: APRESOLINE PO SCH ×2 (11:44→23:14)
[2018-12-10] MEDS: KEPPRA FEEDTUBE SCH ×2 (11:44→23:13)
[2018-12-10] MEDS: Centrum Liq FEEDTUBE SCH (11:45)
[2018-12-10] MEDS: SODIUM CHLORIDE FLUSH SYRINGE 10 ML IV SCH ×2 (11:45→23:15)
[2018-12-10] MEDS: COREG PO SCH ×2 (11:45→23:13)
[2018-12-10] MEDS: ZINC SULFATE PO SCH (11:46)
[2018-12-10] MEDS: DAPTOMYCIN IV SCH (11:46)
[2018-12-10] MEDS: NACL 0.9% IV SCH (11:46)
--- NOTE | 2018-12-10 14:02 | Progress Note ---
Assessment and Plan Patient is weak and contracted and has multiple pressure wounds. Patient is awake and on room air at this time. No acute respiratory distress. O2 sat 94%. Patient is afebrile. Patient is on I/V daptomycin for MRSA. - Patient Problems (1) Respiratory failure Current Visit: Yes Status: Acute Qualifiers: Chronicity: acute Respiratory failure complication: hypoxia Qualified Code(s): J96.01 - Acute respiratory failure with hypoxia Plan to address problem: Continue O2 supplementation 2 L via nasal canula. Albuterol and Atrovent treatment q6h. Patient is on Diptomycine as per infectious diseases. Continue SQ Levonox. Recommend GI prophylexis. (2) Seizure Current Visit: Yes Status: Acute Plan to address problem: Management as per neurologist. (3) Sepsis Current Visit: Yes Status: Acute Plan to address problem: Patient is on Daptomycine as per infectious diseases. (4) UTI (urinary tract infection) Current Visit: Yes Status: Acute Qualifiers: Encounter type: initial encounter Plan to address problem: Patient is on Daptomycine as per infectious diseases. (5) ARF (acute renal failure) with tubular necrosis Current Visit: No Status: Acute Plan to address problem: Management as per Nephrology. Subjective Date of service: 12/10/18 Principal diagnosis: Severe Sepsis; Ac. Hypoxemic Resp failure; Anemia; Seizure; UTI; BPH Interval history: Patient is weak and contracted and has multiple pressure wounds. Patient is awake and on room air at this time. No acute respiratory distress. O2 sat 94%. Patient is afebrile. Patient is on I/V daptomycin for MRSA. Objective Vital Signs - 12hr 12/10/18 12/10/18 12/10/18 07:24 09:04 11:44 Temperature 98.5 F Pulse Rate 89 89 Pulse Rate [ 88 Anterior Bilateral Throughout] Respiratory 18 Rate Respiratory 18 Rate [Anterior Bilateral Throughout] Blood Pressure 132/67 133/70 O2 Sat by Pulse 97 Oximetry 12/10/18 11:45 Temperature Pulse Rate 89 Pulse Rate [ Anterior Bilateral Throughout] Respiratory Rate Respiratory Rate [Anterior Bilateral Throughout] Blood Pressure 133/70 O2 Sat by Pulse Oximetry Constitutional: no acute distress, alert, other (Contracted. Multple pressure ulcers.) Eyes: non-icteric ENT: oropharynx moist Neck: no lymphadenopathy, no JVD, other (mild stiffness / contracture) Effort: mildly labored Ascultation: Bilateral: diminished breath sounds, rhonchi Percussion: Bilateral: not dull Cardiovascular: regular rate and rhythm Gastrointestinal: normoactive bowel sounds, soft, non-tender, non-distended Integumentary: rash Extremities: no cyanosis, no edema, pulses normal, other (Patient has pressure ulcer at multiple areas, including sacral area.) Neurologic: non-focal exam, pupils equal and round, CN II-XII normal, other (+ contractures) Psychiatric: mood appropriate, affect normal CBC and BMP: 12/03/18 05:07 12/06/18 20:57 ABG, PT/INR, D-dimer: ABG POC ABG pH 7.494 (7.35-7.45) H 11/01/18 15:27 POC ABG pCO2 34.5 (35-45) L 11/01/18 15:27 POC ABG pO2 139 (80-105) H 11/01/18 15:27 POC ABG HCO3 26.5 (22-26 mml/L) 11/01/18 15:27 POC ABG Total CO2 28 (23-27mmol/L) 11/01/18 15:27 POC ABG O2 Sat 99 11/01/18 15:27 PT/INR, D-dimer PT 16.3 Sec. (12.2-14.9) H 11/01/18 14:50 INR 1.35 (0.87-1.13) H 11/01/18 14:50 Abnormal lab findings: Abnormal Labs 11/01/18 11/01/18 11/01/18 14:50 14:50 14:50 WBC 15.3 H RBC 2.76 L Hgb 7.9 L Hct 23.5 L MCH MCHC RDW 18.3 H Plt Count 567 H Lymph % (Auto) 6.5 L [place] % (Auto) 8.5 H Eos % (Auto) Lymph # 1.0 L [place] # 1.3 H Eos # Seg Neutrophils % 83.4 H Seg Neutrophils # 12.7 H PT 16.3 H INR 1.35 H POC ABG pH POC ABG pCO2 POC ABG pO2 VBG pH Sodium Potassium Chloride Carbon Dioxide BUN 49 H Creatinine Glucose 132 H POC Glucose Magnesium AST 90 H ALT 77 H Alkaline Phosphatase 350 H Total Creatine Kinase NT-Pro-B Natriuret Pep Albumin 1.6 L Urine WBC (Auto) Crossmatch 11/01/18 11/01/18 11/01/18 14:50 14:50 15:27 WBC RBC Hgb Hct MCH MCHC RDW Plt Count Lymph % (Auto) [place] % (Auto) Eos % (Auto) Lymph # [place] # Eos # Seg Neutrophils % Seg Neutrophils # PT INR POC ABG pH 7.494 H POC ABG pCO2 34.5 L POC ABG pO2 139 H VBG pH 7.499 H Sodium Potassium Chloride Carbon Dioxide BUN Creatinine Glucose POC Glucose Magnesium AST ALT Alkaline Phosphatase Total Creatine Kinase NT-Pro-B Natriuret Pep 6776 H Albumin Urine WBC (Auto) Crossmatch 11/01/18 11/03/18 11/03/18 15:57 03:41 03:41 WBC 12.8 H RBC 2.55 L Hgb 6.9 L Hct 22.2 L MCH 27 L MCHC 31 L RDW 17.9 H Plt Count 519 H Lymph % (Auto) [place] % (Auto) Eos % (Auto) Lymph # [place] # Eos # Seg Neutrophils % Seg Neutrophils # PT INR POC ABG pH POC ABG pCO2 POC ABG pO2 VBG pH Sodium 147 H Potassium Chloride 110.3 H Carbon Dioxide BUN 55 H Creatinine Glucose POC Glucose Magnesium AST ALT Alkaline Phosphatase Total Creatine Kinase NT-Pro-B Natriuret Pep Albumin Urine WBC (Auto) > 182.0 H Crossmatch 11/03/18 11/04/18 11/04/18 12:51 05:12 05:12 WBC 11.5 H RBC 2.94 L Hgb 8.3 L Hct 25.3 L MCH MCHC RDW 17.3 H Plt Count 514 H Lymph % (Auto) [place] % (Auto) Eos % (Auto) Lymph # [place] # Eos # Seg Neutrophils % Seg Neutrophils # PT INR POC ABG pH POC ABG pCO2 POC ABG pO2 VBG pH Sodium 147 H Potassium Chloride 112.4 H Carbon Dioxide BUN 52 H Creatinine Glucose POC Glucose Magnesium AST ALT Alkaline Phosphatase Total Creatine Kinase NT-Pro-B Natriuret Pep Albumin Urine WBC (Auto) Crossmatch See Detail 11/05/18 11/05/18 11/06/18 04:50 04:50 05:42 WBC RBC 3.03 L 2.80 L Hgb 8.7 L 7.9 L Hct 26.6 L 24.7 L MCH MCHC RDW 17.1 H 17.0 H Plt Count 502 H 478 H Lymph % (Auto) 10.4 L [place] % (Auto) 8.6 H Eos % (Auto) 4.7 H Lymph # 1.0 L [place] # Eos # 0.5 H Seg Neutrophils % 75.6 H Seg Neutrophils # PT INR POC ABG pH POC ABG pCO2 POC ABG pO2 VBG pH Sodium 149 H Potassium Chloride 114.4 H Carbon Dioxide 21 L BUN 50 H Creatinine Glucose 108 H POC Glucose Magnesium AST ALT Alkaline Phosphatase Total Creatine Kinase NT-Pro-B Natriuret Pep Albumin Urine WBC (Auto) Crossmatch 11/06/18 11/11/18 11/12/18 05:42 18:54 00:22 WBC RBC Hgb Hct MCH MCHC RDW Plt Count Lymph % (Auto) [place] % (Auto) Eos % (Auto) Lymph # [place] # Eos # Seg Neutrophils % Seg Neutrophils # PT INR POC ABG pH POC ABG pCO2 POC ABG pO2 VBG pH Sodium 149 H Potassium Chloride 113.4 H Carbon Dioxide BUN 50 H Creatinine Glucose 121 H POC Glucose 114 H 123 H Magnesium AST ALT Alkaline Phosphatase Total Creatine Kinase NT-Pro-B Natriuret Pep Albumin Urine WBC (Auto) Crossmatch 11/12/18 11/12/18 11/13/18 06:49 11:35 06:34 WBC RBC Hgb Hct MCH MCHC RDW Plt Count Lymph % (Auto) [place] % (Auto) Eos % (Auto) Lymph # [place] # Eos # Seg Neutrophils % Seg Neutrophils # PT INR POC ABG pH POC ABG pCO2 POC ABG pO2 VBG pH Sodium Potassium Chloride Carbon Dioxide BUN Creatinine Glucose POC Glucose 129 H 123 H 128 H Magnesium AST ALT Alkaline Phosphatase Total Creatine Kinase NT-Pro-B Natriuret Pep Albumin Urine WBC (Auto) Crossmatch 11/13/18 11/13/18 11/13/18 09:26 09:26 15:13 WBC RBC 3.08 L Hgb 8.6 L Hct 27.3 L MCH MCHC 31 L RDW 18.3 H Plt Count 504 H Lymph % (Auto) 11.7 L [place] % (Auto) 7.5 H Eos % (Auto) 7.0 H Lymph # [place] # Eos # 0.7 H Seg Neutrophils % 72.9 H Seg Neutrophils # PT INR POC ABG pH POC ABG pCO2 POC ABG pO2 VBG pH Sodium 153 H Potassium 6.3 H* 5.8 H Chloride 122.3 H Carbon Dioxide 21 L BUN 38 H Creatinine Glucose 112 H POC Glucose Magnesium AST ALT Alkaline Phosphatase Total Creatine Kinase NT-Pro-B Natriuret Pep Albumin Urine WBC (Auto) Crossmatch 11/13/18 11/13/18 11/14/18 22:10 23:45 13:17 WBC RBC Hgb Hct MCH MCHC RDW Plt Count Lymph % (Auto) [place] % (Auto) Eos % (Auto) Lymph # [place] # Eos # Seg Neutrophils % Seg Neutrophils # PT INR POC ABG pH POC ABG pCO2 POC ABG pO2 VBG pH Sodium 155 H Potassium 5.3 H Chloride 122.3 H Carbon Dioxide BUN 35 H Creatinine Glucose 113 H POC Glucose 111 H 142 H Magnesium AST ALT Alkaline Phosphatase Total Creatine Kinase NT-Pro-B Natriuret Pep Albumin Urine WBC (Auto) Crossmatch 11/14/18 11/15/18 11/15/18 19:08 00:31 06:45 WBC RBC Hgb Hct MCH MCHC RDW Plt Count Lymph % (Auto) [place] % (Auto) Eos % (Auto) Lymph # [place] # Eos # Seg Neutrophils % Seg Neutrophils # PT INR POC ABG pH POC ABG pCO2 POC ABG pO2 VBG pH Sodium Potassium Chloride Carbon Dioxide BUN Creatinine Glucose POC Glucose 116 H 125 H 131 H Magnesium AST ALT Alkaline Phosphatase Total Creatine Kinase NT-Pro-B Natriuret Pep Albumin Urine WBC (Auto) Crossmatch 11/15/18 11/15/18 11/15/18 07:13 07:13 19:03 WBC 13.2 H RBC 2.81 L Hgb 7.8 L Hct 24.5 L MCH MCHC RDW 18.2 H Plt Count 454 H Lymph % (Auto) 9.0 L [place] % (Auto) 7.5 H Eos % (Auto) Lymph # [place] # 1.0 H Eos # 0.5 H Seg Neutrophils % 78.8 H Seg Neutrophils # 10.4 H PT INR POC ABG pH POC ABG pCO2 POC ABG pO2 VBG pH Sodium 149 H Potassium 5.2 H Chloride 117.2 H Carbon Dioxide BUN 38 H Creatinine Glucose 114 H POC Glucose 141 H Magnesium AST ALT Alkaline Phosphatase Total Creatine Kinase NT-Pro-B Natriuret Pep Albumin Urine WBC (Auto) Crossmatch 11/16/18 11/16/18 11/16/18 01:15 01:15 06:45 WBC RBC Hgb Hct MCH MCHC RDW Plt Count Lymph % (Auto) [place] % (Auto) Eos % (Auto) Lymph # [place] # Eos # Seg Neutrophils % Seg Neutrophils # PT INR POC ABG pH POC ABG pCO2 POC ABG pO2 VBG pH Sodium Potassium 5.3 H Chloride Carbon Dioxide BUN Creatinine Glucose POC Glucose 129 H Magnesium 2.60 H AST ALT Alkaline Phosphatase Total Creatine Kinase NT-Pro-B Natriuret Pep Albumin Urine WBC (Auto) Crossmatch 11/16/18 11/16/18 11/17/18 13:20 18:02 00:16 WBC RBC Hgb Hct MCH MCHC RDW Plt Count Lymph % (Auto) [place] % (Auto) Eos % (Auto) Lymph # [place] # Eos # Seg Neutrophils % Seg Neutrophils # PT INR POC ABG pH POC ABG pCO2 POC ABG pO2 VBG pH Sodium Potassium Chloride Carbon Dioxide BUN Creatinine Glucose POC Glucose 130 H 127 H 120 H Magnesium AST ALT Alkaline Phosphatase Total Creatine Kinase NT-Pro-B Natriuret Pep Albumin Urine WBC (Auto) Crossmatch 11/17/18 11/17/18 11/17/18 05:48 08:02 08:02 WBC RBC Hgb 7.5 L Hct 23.5 L MCH MCHC RDW Plt Count Lymph % (Auto) [place] % (Auto) Eos % (Auto) Lymph # [place] # Eos # Seg Neutrophils % Seg Neutrophils # PT INR POC ABG pH POC ABG pCO2 POC ABG pO2 VBG pH Sodium Potassium Chloride 110.1 H Carbon Dioxide 21 L BUN 38 H Creatinine Glucose 121 H POC Glucose 130 H Magnesium AST ALT Alkaline Phosphatase Total Creatine Kinase NT-Pro-B Natriuret Pep Albumin Urine WBC (Auto) Crossmatch 11/17/18 11/17/18 11/18/18 12:17 16:48 06:00 WBC RBC Hgb Hct MCH MCHC RDW Plt Count Lymph % (Auto) [place] % (Auto) Eos % (Auto) Lymph # [place] # Eos # Seg Neutrophils % Seg Neutrophils # PT INR POC ABG pH POC ABG pCO2 POC ABG pO2 VBG pH Sodium Potassium Chloride Carbon Dioxide BUN Creatinine Glucose POC Glucose 140 H 120 H 137 H Magnesium AST ALT Alkaline Phosphatase Total Creatine Kinase NT-Pro-B Natriuret Pep Albumin Urine WBC (Auto) Crossmatch 11/19/18 11/19/18 11/19/18 00:20 05:35 06:11 WBC RBC Hgb Hct MCH MCHC RDW Plt Count Lymph % (Auto) [place] % (Auto) Eos % (Auto) Lymph # [place] # Eos # Seg Neutrophils % Seg Neutrophils # PT INR POC ABG pH POC ABG pCO2 POC ABG pO2 VBG pH Sodium Potassium Chloride Carbon Dioxide BUN Creatinine Glucose POC Glucose 111 H 126 H Magnesium AST ALT Alkaline Phosphatase Total Creatine Kinase 53 L NT-Pro-B Natriuret Pep Albumin Urine WBC (Auto) Crossmatch 11/19/18 11/19/18 11/20/18 11:37 23:43 06:52 WBC RBC Hgb Hct MCH MCHC RDW Plt Count Lymph % (Auto) [place] % (Auto) Eos % (Auto) Lymph # [place] # Eos # Seg Neutrophils % Seg Neutrophils # PT INR POC ABG pH POC ABG pCO2 POC ABG pO2 VBG pH Sodium Potassium Chloride Carbon Dioxide BUN Creatinine Glucose POC Glucose 139 H 145 H 125 H Magnesium AST ALT Alkaline Phosphatase Total Creatine Kinase NT-Pro-B Natriuret Pep Albumin Urine WBC (Auto) Crossmatch 11/20/18 11/20/18 11/20/18 09:55 09:55 11:49 WBC RBC 3.04 L Hgb 8.4 L Hct 26.1 L MCH MCHC RDW 17.5 H Plt Count Lymph % (Auto) [place] % (Auto) Eos % (Auto) Lymph # [place] # Eos # Seg Neutrophils % Seg Neutrophils # PT INR POC ABG pH POC ABG pCO2 POC ABG pO2 VBG pH Sodium 149 H Potassium Chloride 114.5 H Carbon Dioxide 21 L BUN 35 H Creatinine Glucose 127 H POC Glucose 150 H Magnesium AST ALT Alkaline Phosphatase Total Creatine Kinase NT-Pro-B Natriuret Pep Albumin Urine WBC (Auto) Crossmatch 11/20/18 11/20/18 11/21/18 18:02 23:49 06:14 WBC RBC Hgb Hct MCH MCHC RDW Plt Count Lymph % (Auto) [place] % (Auto) Eos % (Auto) Lymph # [place] # Eos # Seg Neutrophils % Seg Neutrophils # PT INR POC ABG pH POC ABG pCO2 POC ABG pO2 VBG pH Sodium Potassium Chloride Carbon Dioxide BUN Creatinine Glucose POC Glucose 131 H 137 H 133 H Magnesium AST ALT Alkaline Phosphatase Total Creatine Kinase NT-Pro-B Natriuret Pep Albumin Urine WBC (Auto) Crossmatch 11/21/18 11/21/18 11/21/18 10:00 12:09 18:04 WBC RBC Hgb Hct MCH MCHC RDW Plt Count Lymph % (Auto) [place] % (Auto) Eos % (Auto) Lymph # [place] # Eos # Seg Neutrophils % Seg Neutrophils # PT INR POC ABG pH POC ABG pCO2 POC ABG pO2 VBG pH Sodium Potassium Chloride 110.6 H Carbon Dioxide BUN 31 H Creatinine Glucose 119 H POC Glucose 116 H 126 H Magnesium AST ALT Alkaline Phosphatase Total Creatine Kinase NT-Pro-B Natriuret Pep Albumin Urine WBC (Auto) Crossmatch 11/22/18 11/22/18 11/22/18 00:14 05:47 06:23 WBC RBC Hgb Hct MCH MCHC RDW Plt Count Lymph % (Auto) [place] % (Auto) Eos % (Auto) Lymph # [place] # Eos # Seg Neutrophils % Seg Neutrophils # PT INR POC ABG pH POC ABG pCO2 POC ABG pO2 VBG pH Sodium Potassium Chloride 107.6 H Carbon Dioxide BUN 32 H Creatinine 0.7 L Glucose 116 H POC Glucose 122 H 119 H Magnesium AST ALT Alkaline Phosphatase Total Creatine Kinase NT-Pro-B Natriuret Pep Albumin Urine WBC (Auto) Crossmatch 11/22/18 11/22/18 11/22/18 08:40 12:19 17:39 WBC RBC Hgb Hct MCH MCHC RDW Plt Count Lymph % (Auto) [place] % (Auto) Eos % (Auto) Lymph # [place] # Eos # Seg Neutrophils % Seg Neutrophils # PT INR POC ABG pH POC ABG pCO2 POC ABG pO2 VBG pH Sodium Potassium Chloride Carbon Dioxide BUN Creatinine Glucose POC Glucose 150 H 111 H 108 H Magnesium AST ALT Alkaline Phosphatase Total Creatine Kinase NT-Pro-B Natriuret Pep Albumin Urine WBC (Auto) Crossmatch 11/23/18 11/23/18 11/23/18 00:36 05:37 05:56 WBC RBC Hgb Hct MCH MCHC RDW Plt Count Lymph % (Auto) [place] % (Auto) Eos % (Auto) Lymph # [place] # Eos # Seg Neutrophils % Seg Neutrophils # PT INR POC ABG pH POC ABG pCO2 POC ABG pO2 VBG pH Sodium 136 L Potassium Chloride Carbon Dioxide BUN 30 H Creatinine 0.7 L Glucose 103 H POC Glucose 125 H 122 H Magnesium 2.50 H AST ALT Alkaline Phosphatase Total Creatine Kinase NT-Pro-B Natriuret Pep Albumin Urine WBC (Auto) Crossmatch 11/23/18 11/23/18 11/23/18 11:56 17:39 23:40 WBC RBC Hgb Hct MCH MCHC RDW Plt Count Lymph % (Auto) [place] % (Auto) Eos % (Auto) Lymph # [place] # Eos # Seg Neutrophils % Seg Neutrophils # PT INR POC ABG pH POC ABG pCO2 POC ABG pO2 VBG pH Sodium Potassium Chloride Carbon Dioxide BUN Creatinine Glucose POC Glucose 121 H 113 H 117 H Magnesium AST ALT Alkaline Phosphatase Total Creatine Kinase NT-Pro-B Natriuret Pep Albumin Urine WBC (Auto) Crossmatch 11/24/18 11/24/18 11/24/18 05:13 12:00 18:13 WBC RBC Hgb Hct MCH MCHC RDW Plt Count Lymph % (Auto) [place] % (Auto) Eos % (Auto) Lymph # [place] # Eos # Seg Neutrophils % Seg Neutrophils # PT INR POC ABG pH POC ABG pCO2 POC ABG pO2 VBG pH Sodium Potassium Chloride Carbon Dioxide BUN Creatinine Glucose POC Glucose 143 H 123 H 124 H Magnesium AST ALT Alkaline Phosphatase Total Creatine Kinase NT-Pro-B Natriuret Pep Albumin Urine WBC (Auto) Crossmatch 11/24/18 11/25/18 11/25/18 23:34 05:25 05:25 WBC RBC 2.48 L Hgb 6.8 L Hct 21.2 L MCH MCHC RDW 17.7 H Plt Count Lymph % (Auto) [place] % (Auto) Eos % (Auto) Lymph # [place] # Eos # Seg Neutrophils % Seg Neutrophils # PT INR POC ABG pH POC ABG pCO2 POC ABG pO2 VBG pH Sodium Potassium Chloride 108.8 H Carbon Dioxide BUN 30 H Creatinine 0.7 L Glucose 112 H POC Glucose 115 H Magnesium AST ALT Alkaline Phosphatase Total Creatine Kinase NT-Pro-B Natriuret Pep Albumin Urine WBC (Auto) Crossmatch 11/25/18 11/25/18 11/25/18 06:46 11:15 11:28 WBC RBC Hgb 7.4 L Hct 23.0 L MCH MCHC RDW Plt Count Lymph % (Auto) [place] % (Auto) Eos % (Auto) Lymph # [place] # Eos # Seg Neutrophils % Seg Neutrophils # PT INR POC ABG pH POC ABG pCO2 POC ABG pO2 VBG pH Sodium Potassium Chloride Carbon Dioxide BUN Creatinine Glucose POC Glucose 133 H 127 H Magnesium AST ALT Alkaline Phosphatase Total Creatine Kinase NT-Pro-B Natriuret Pep Albumin Urine WBC (Auto) Crossmatch 11/25/18 11/25/18 11/25/18 15:28 17:32 23:45 WBC RBC Hgb Hct MCH MCHC RDW Plt Count Lymph % (Auto) [place] % (Auto) Eos % (Auto) Lymph # [place] # Eos # Seg Neutrophils % Seg Neutrophils # PT INR POC ABG pH POC ABG pCO2 POC ABG pO2 VBG pH Sodium Potassium Chloride Carbon Dioxide BUN Creatinine Glucose POC Glucose 115 H 130 H Magnesium AST ALT Alkaline Phosphatase Total Creatine Kinase NT-Pro-B Natriuret Pep Albumin Urine WBC (Auto) Crossmatch See Detail 11/26/18 11/26/18 11/26/18 06:13 06:20 06:20 WBC RBC 2.76 L Hgb 7.7 L Hct 23.4 L MCH MCHC RDW 17.5 H Plt Count Lymph % (Auto) [place] % (Auto) Eos % (Auto) Lymph # [place] # Eos # Seg Neutrophils % Seg Neutrophils # PT INR POC ABG pH POC ABG pCO2 POC ABG pO2 VBG pH Sodium Potassium Chloride 109.9 H Carbon Dioxide BUN 30 H Creatinine 0.6 L Glucose 121 H POC Glucose 129 H Magnesium AST ALT Alkaline Phosphatase Total Creatine Kinase NT-Pro-B Natriuret Pep Albumin Urine WBC (Auto) Crossmatch 11/26/18 11/26/18 11/27/18 12:06 16:35 06:04 WBC RBC Hgb Hct MCH MCHC RDW Plt Count Lymph % (Auto) [place] % (Auto) Eos % (Auto) Lymph # [place] # Eos # Seg Neutrophils % Seg Neutrophils # PT INR POC ABG pH POC ABG pCO2 POC ABG pO2 VBG pH Sodium Potassium Chloride Carbon Dioxide BUN Creatinine Glucose POC Glucose 139 H 107 H 126 H Magnesium AST ALT Alkaline Phosphatase Total Creatine Kinase NT-Pro-B Natriuret Pep Albumin Urine WBC (Auto) Crossmatch 11/27/18 11/27/18 11/28/18 13:14 17:47 07:03 WBC RBC Hgb Hct MCH MCHC RDW Plt Count Lymph % (Auto) [place] % (Auto) Eos % (Auto) Lymph # [place] # Eos # Seg Neutrophils % Seg Neutrophils # PT INR POC ABG pH POC ABG pCO2 POC ABG pO2 VBG pH Sodium Potassium Chloride Carbon Dioxide BUN Creatinine Glucose POC Glucose 130 H 115 H 118 H Magnesium AST ALT Alkaline Phosphatase Total Creatine Kinase NT-Pro-B Natriuret Pep Albumin Urine WBC (Auto) Crossmatch 11/28/18 11/29/18 11/29/18 11:38 00:35 04:56 WBC RBC Hgb Hct MCH MCHC RDW Plt Count Lymph % (Auto) [place] % (Auto) Eos % (Auto) Lymph # [place] # Eos # Seg Neutrophils % Seg Neutrophils # PT INR POC ABG pH POC ABG pCO2 POC ABG pO2 VBG pH Sodium Potassium Chloride Carbon Dioxide BUN Creatinine Glucose POC Glucose 126 H 107 H Magnesium AST ALT Alkaline Phosphatase Total Creatine Kinase 50 L NT-Pro-B Natriuret Pep Albumin Urine WBC (Auto) Crossmatch 11/29/18 11/29/18 11/29/18 05:49 11:46 18:17 WBC RBC Hgb Hct MCH MCHC RDW Plt Count Lymph % (Auto) [place] % (Auto) Eos % (Auto) Lymph # [place] # Eos # Seg Neutrophils % Seg Neutrophils # PT INR POC ABG pH POC ABG pCO2 POC ABG pO2 VBG pH Sodium Potassium Chloride Carbon Dioxide BUN Creatinine Glucose POC Glucose 128 H 140 H 115 H Magnesium AST ALT Alkaline Phosphatase Total Creatine Kinase NT-Pro-B Natriuret Pep Albumin Urine WBC (Auto) Crossmatch 11/30/18 11/30/18 11/30/18 00:00 03:30 03:30 WBC RBC 2.97 L Hgb 8.1 L Hct 25.5 L MCH 27 L MCHC RDW 17.7 H Plt Count Lymph % (Auto) 9.2 L [place] % (Auto) 10.0 H Eos % (Auto) 4.6 H Lymph # 1.0 L [place] # 1.1 H Eos # 0.5 H Seg Neutrophils % 75.6 H Seg Neutrophils # 8.4 H PT INR POC ABG pH POC ABG pCO2 POC ABG pO2 VBG pH Sodium Potassium Chloride Carbon Dioxide BUN 31 H Creatinine 0.7 L Glucose POC Glucose 120 H Magnesium AST ALT Alkaline Phosphatase Total Creatine Kinase NT-Pro-B Natriuret Pep Albumin Urine WBC (Auto) Crossmatch 07/11/30/18 11/30/18 06:54 11:45 16:59 WBC RBC Hgb Hct MCH MCHC RDW Plt Count Lymph % (Auto) [place] % (Auto) Eos % (Auto) Lymph # [place] # Eos # Seg Neutrophils % Seg Neutrophils # PT INR POC ABG pH POC ABG pCO2 POC ABG pO2 VBG pH Sodium Potassium Chloride Carbon Dioxide BUN Creatinine Glucose POC Glucose 120 H 123 H 111 H Magnesium AST ALT Alkaline Phosphatase Total Creatine Kinase NT-Pro-B Natriuret Pep Albumin Urine WBC (Auto) Crossmatch 12/01/18 12/01/18 12/01/18 00:20 05:58 11:33 WBC RBC Hgb Hct MCH MCHC RDW Plt Count Lymph % (Auto) [place] % (Auto) Eos % (Auto) Lymph # [place] # Eos # Seg Neutrophils % Seg Neutrophils # PT INR POC ABG pH POC ABG pCO2 POC ABG pO2 VBG pH Sodium Potassium Chloride Carbon Dioxide BUN Creatinine Glucose POC Glucose 113 H 127 H 138 H Magnesium AST ALT Alkaline Phosphatase Total Creatine Kinase NT-Pro-B Natriuret Pep Albumin Urine WBC (Auto) Crossmatch 12/02/18 12/03/18 12/03/18 00:33 05:07 05:07 WBC RBC 2.93 L Hgb 8.2 L Hct 24.9 L MCH MCHC RDW 17.0 H Plt Count 470 H Lymph % (Auto) 9.3 L [place] % (Auto) 8.6 H Eos % (Auto) 5.4 H Lymph # 0.9 L [place] # Eos # 0.5 H Seg Neutrophils % 75.8 H Seg Neutrophils # PT INR POC ABG pH POC ABG pCO2 POC ABG pO2 VBG pH Sodium Potassium Chloride Carbon Dioxide BUN 30 H Creatinine 0.6 L Glucose 115 H POC Glucose 110 H Magnesium AST ALT Alkaline Phosphatase Total Creatine Kinase NT-Pro-B Natriuret Pep Albumin Urine WBC (Auto) Crossmatch 12/03/18 12/03/18 12/03/18 05:58 11:49 17:44 WBC RBC Hgb Hct MCH MCHC RDW Plt Count Lymph % (Auto) [place] % (Auto) Eos % (Auto) Lymph # [place] # Eos # Seg Neutrophils % Seg Neutrophils # PT INR POC ABG pH POC ABG pCO2 POC ABG pO2 VBG pH Sodium Potassium Chloride Carbon Dioxide BUN Creatinine Glucose POC Glucose 127 H 138 H 127 H Magnesium AST ALT Alkaline Phosphatase Total Creatine Kinase NT-Pro-B Natriuret Pep Albumin Urine WBC (Auto) Crossmatch 12/05/18 12/05/18 12/05/18 00:22 05:53 17:18 WBC RBC Hgb Hct MCH MCHC RDW Plt Count Lymph % (Auto) [place] % (Auto) Eos % (Auto) Lymph # [place] # Eos # Seg Neutrophils % Seg Neutrophils # PT INR POC ABG pH POC ABG pCO2 POC ABG pO2 VBG pH Sodium Potassium Chloride Carbon Dioxide BUN Creatinine Glucose POC Glucose 124 H 121 H 112 H Magnesium AST ALT Alkaline Phosphatase Total Creatine Kinase NT-Pro-B Natriuret Pep Albumin Urine WBC (Auto) Crossmatch 12/06/18 12/06/18 12/06/18 00:07 06:16 11:43 WBC RBC Hgb Hct MCH MCHC RDW Plt Count Lymph % (Auto) [place] % (Auto) Eos % (Auto) Lymph # [place] # Eos # Seg Neutrophils % Seg Neutrophils # PT INR POC ABG pH POC ABG pCO2 POC ABG pO2 VBG pH Sodium Potassium Chloride Carbon Dioxide BUN Creatinine Glucose POC Glucose 111 H 117 H 121 H Magnesium AST ALT Alkaline Phosphatase Total Creatine Kinase NT-Pro-B Natriuret Pep Albumin Urine WBC (Auto) Crossmatch 12/06/18 12/07/18 12/07/18 20:57 06:41 12:09 WBC RBC Hgb Hct MCH MCHC RDW Plt Count Lymph % (Auto) [place] % (Auto) Eos % (Auto) Lymph # [place] # Eos # Seg Neutrophils % Seg Neutrophils # PT INR POC ABG pH POC ABG pCO2 POC ABG pO2 VBG pH Sodium Potassium Chloride 107.2 H Carbon Dioxide BUN 27 H Creatinine 0.7 L Glucose POC Glucose 128 H 137 H Magnesium 2.50 H AST ALT Alkaline Phosphatase Total Creatine Kinase NT-Pro-B Natriuret Pep Albumin Urine WBC (Auto) Crossmatch 12/07/18 12/08/18 12/08/18 19:29 05:44 12:27 WBC RBC Hgb Hct MCH MCHC RDW Plt Count Lymph % (Auto) [place] % (Auto) Eos % (Auto) Lymph # [place] # Eos # Seg Neutrophils % Seg Neutrophils # PT INR POC ABG pH POC ABG pCO2 POC ABG pO2 VBG pH Sodium Potassium Chloride Carbon Dioxide BUN Creatinine Glucose POC Glucose 110 H 126 H 130 H Magnesium AST ALT Alkaline Phosphatase Total Creatine Kinase NT-Pro-B Natriuret Pep Albumin Urine WBC (Auto) Crossmatch 12/08/18 12/09/18 12/09/18 17:44 00:20 06:42 WBC RBC Hgb Hct MCH MCHC RDW Plt Count Lymph % (Auto) [place] % (Auto) Eos % (Auto) Lymph # [place] # Eos # Seg Neutrophils % Seg Neutrophils # PT INR POC ABG pH POC ABG pCO2 POC ABG pO2 VBG pH Sodium Potassium Chloride Carbon Dioxide BUN Creatinine Glucose POC Glucose 113 H 121 H 124 H Magnesium AST ALT Alkaline Phosphatase Total Creatine Kinase NT-Pro-B Natriuret Pep Albumin Urine WBC (Auto) Crossmatch 12/09/18 12/09/18 12/09/18 12:24 18:41 23:48 WBC RBC Hgb Hct MCH MCHC RDW Plt Count Lymph % (Auto) [place] % (Auto) Eos % (Auto) Lymph # [place] # Eos # Seg Neutrophils % Seg Neutrophils # PT INR POC ABG pH POC ABG pCO2 POC ABG pO2 VBG pH Sodium Potassium Chloride Carbon Dioxide BUN Creatinine Glucose POC Glucose 114 H 109 H 128 H Magnesium AST ALT Alkaline Phosphatase Total Creatine Kinase NT-Pro-B Natriuret Pep Albumin Urine WBC (Auto) Crossmatch 12/10/18 12/10/18 07:07 11:28 WBC RBC Hgb Hct MCH MCHC RDW Plt Count Lymph % (Auto) [place] % (Auto) Eos % (Auto) Lymph # [place] # Eos # Seg Neutrophils % Seg Neutrophils # PT INR POC ABG pH POC ABG pCO2 POC ABG pO2 VBG pH Sodium Potassium Chloride Carbon Dioxide BUN Creatinine Glucose POC Glucose 111 H 110 H Magnesium AST ALT Alkaline Phosphatase Total Creatine Kinase NT-Pro-B Natriuret Pep Albumin Urine WBC (Auto) Crossmatch Allied health notes reviewed: nursing
[2018-12-10] MEDS ORDERED: FLEET MINERAL OIL PR PRN (14:55)
[2018-12-10] MEDS ORDERED: FLEET PR PRN (14:55)
[2018-12-10] MEDS ORDERED: SENOKOT FEEDTUBE PRN (14:56)
--- NOTE | 2018-12-10 15:12 | Progress Note ---
Assessment and Plan Assessment and plan: 67 YO Male [facility] Resident as [facility] with HTN, CVA, Obstructive Uropathy, Diastolic CHF, Contracture, Sacral Decubitus Ulcers, [place], DM, OA, Seizure Disorder, COPD, Dementia, BPH presents to ED for evaluation. Pt is stuporous and unable to provide history. Pt history taken from ED Staff, EMS, and SNF Staff. As per staff, the patient was found to have respiratory distress upon evaluation this morning. Pt found to have pulse oximetry in the 80's. EMS notified and patient subsequently transported to [facility] for further care and evaluation. Pt seen and evaluated in ED and found to have UTI, Sepsis, Encephalopathy as well as Acute Hypoxemic Respiratory Failure. Pt initiated on NIPPV in ED with improvement in symptoms. Pt admitted to [facility] and initiated on Sepsis protocol. Prior admission on 10/01/18 reviewed. 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 He needs to be on contact isolation. This cannot be cured with antibiotics. recommend palliative care/comfort care or hospice, family are not interested in that option, continue daptomycin , at discharge will do daptomycin 400 mg IV q day for 6 weeks until 12/16/2018 sacral pressure ulcer -infected. POA WOUND CARE CONSULT. CONTINUE ABX. Debridement done by Dr Man Amputation recommended and the daughter refused Respiratory failure Supplemental oxygen, nebulizer therapy, mgt per pulmonology Anemia of chronic disease Transfused one unit PRBC hemoglobin is stable Seizure Continue current therapy, seizure precautions. BPH Continue Chaudhary catherter Dementia supportive care DVT prophylaxis Prophylactic lovenox POOR PROGNOSIS Disposition; pending SNF placement. . History Interval history: Review of systems Constitutional: No fevers, no malaise, no joint pains CVS: No chest pain, no orthopnea, no dyspnea on exertion, no pedal edema GI: No abdominal pain, no diarrhea, no vomiting, no constipation Respiratory: no wheezing, no coughing Hospitalist Physical - Physical exam Narrative exam: Not in cardiopulmonary distress. The patient appeared well nourished and normally developed. Vital signs as documented. Head exam is unremarkable. No scleral icterus . Neck is without jugular venous distension, thyromegaly, or carotid bruits. Lungs are clear to auscultation. Cardiac exam reveals regular rate and Rhythm. First and second heart sounds normal. No murmurs, rubs or gallops. Abdominal exam reveals normal bowel sounds, no masses, no organomegaly and no aortic enlargement. Extremities contracted extremities. 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 No focal weakness. Skin; multiple decubitus ulcers, including the sacrum and the heel. - Constitutional Vitals: Temp Pulse Resp BP Pulse Ox 98.5 F 89 18 133/70 97 12/10/18 07:24 12/10/18 11:45 12/10/18 09:04 12/10/18 11:45 12/10/18 07:24 General appearance: Present: no acute distress Results - Labs CBC & Chem 7: 12/27/18 04:23 12/27/18 04:23 Labs: Laboratory Last Values WBC 9.4 K/mm3 (4.5-11.0) 12/03/18 05:07 RBC 2.93 M/mm3 (3.65-5.03) L 12/03/18 05:07 Hgb 8.2 gm/dl (11.8-15.2) L 12/03/18 05:07 Hct 24.9 % (35.5-45.6) L 12/03/18 05:07 MCV 85 fl (84-94) 12/03/18 05:07 MCH 28 pg (28-32) 12/03/18 05:07 MCHC 33 % (32-34) 12/03/18 05:07 RDW 17.0 % (13.2-15.2) H 12/03/18 05:07 Plt Count 470 K/mm3 (140-440) H 12/03/18 05:07 Lymph % (Auto) 9.3 % (13.4-35.0) L 12/03/18 05:07 [place] % (Auto) 8.6 % (0.0-7.3) H 12/03/18 05:07 Eos % (Auto) 5.4 % (0.0-4.3) H 12/03/18 05:07 Baso % (Auto) 0.9 % (0.0-1.8) 12/03/18 05:07 Lymph # 0.9 K/mm3 (1.2-5.4) L 12/03/18 05:07 [place] # 0.8 K/mm3 (0.0-0.8) 12/03/18 05:07 Eos # 0.5 K/mm3 (0.0-0.4) H 12/03/18 05:07 Baso # 0.1 K/mm3 (0.0-0.1) 12/03/18 05:07 Seg Neutrophils % 75.8 % (40.0-70.0) H 12/03/18 05:07 Seg Neutrophils # 7.1 K/mm3 (1.8-7.7) 12/03/18 05:07 PT 16.3 Sec. (12.2-14.9) H 11/01/18 14:50 INR 1.35 (0.87-1.13) H 11/01/18 14:50 POC ABG pH 7.494 (7.35-7.45) H 11/01/18 15:27 POC ABG pCO2 34.5 (35-45) L 11/01/18 15:27 POC ABG pO2 139 (80-105) H 11/01/18 15:27 POC ABG HCO3 26.5 (22-26 mml/L) 11/01/18 15:27 POC ABG Total CO2 28 (23-27mmol/L) 11/01/18 15:27 POC ABG O2 Sat 99 11/01/18 15:27 POC ABG Base Excess 3 ((-2) - (+3)mmol/L) 11/01/18 15:27 VBG pH 7.499 (7.320-7.420) H 11/01/18 14:50 50 % 11/01/18 15:27 Sodium 141 mmol/L (137-145) 12/06/18 20:57 Potassium 4.0 mmol/L (3.6-5.0) 12/06/18 20:57 Chloride 107.2 mmol/L (98-107) H 12/06/18 20:57 Carbon Dioxide 22 mmol/L (22-30) 12/06/18 20:57 16 mmol/L 12/06/18 20:57 BUN 27 mg/dL (9-20) H 12/06/18 20:57 0.7 mg/dL (0.8-1.5) L 12/06/18 20:57 Estimated GFR > 60 ml/min 12/06/18 20:57 39 % 12/06/18 20:57 Glucose 89 mg/dL (75-100) 12/06/18 20:57 POC Glucose 110 (70-105) H 12/10/18 11:28 Lactic Acid 1.80 mmol/L (0.7-2.0) 11/01/18 14:50 Calcium 9.5 mg/dL (8.4-10.2) 12/06/18 20:57 Phosphorus 2.90 mg/dL (2.5-4.5) 11/22/18 09:43 Magnesium 2.50 mg/dL (1.7-2.3) H 12/06/18 20:57 0.30 mg/dL (0.1-1.2) 11/01/18 14:50 AST 90 units/L (5-40) H 11/01/18 14:50 ALT 77 units/L (7-56) H 11/01/18 14:50 350 units/L (35-129) H 11/01/18 14:50 67 units/L (55-170) 12/10/18 07:21 NT-Pro-B Natriuret Pep 6776 pg/mL (0-900) H 11/01/18 14:50 7.9 g/dL (6.3-8.2) 11/01/18 14:50 1.6 g/dL (3.9-5) L 11/01/18 14:50 0.3 % 11/01/18 14:50 14 units/L (13-60) 11/25/18 15:07 Yellow (Yellow) 11/01/18 15:57 Turbid (Clear) 11/01/18 15:57 6.0 (5.0-7.0) 11/01/18 15:57 Ur Specific [place] 1.016 (1.003-1.030) 11/01/18 15:57 100 mg/dl mg/dL (Negative) 11/01/18 15:57 Neg mg/dL (Negative) 11/01/18 15:57 Neg mg/dL (Negative) 11/01/18 15:57 Neg (Negative) 11/01/18 15:57 Neg (Negative) 11/01/18 15:57 Neg (Negative) 11/01/18 15:57 < 2.0 mg/dL (<2.0) 11/01/18 15:57 Ur Leukocyte Esterase Mod (Negative) 11/01/18 15:57 > 182.0 /HPF (0.0-6.0) H 11/01/18 15:57 40.0 /HPF (0.0-6.0) 11/01/18 15:57 U Epithel Cells (Auto) 8.0 /HPF (0-13.0) 11/01/18 15:57 3+ /HPF 11/01/18 15:57 3+ /HPF 11/01/18 15:57 Random Vancomycin 13.9 ug/mL (0-40.0) 11/02/18 05:05 Blood Type O POSITIVE 11/25/18 15:28 Antibody Screen Negative 11/25/18 15:28 Crossmatch See Detail 11/25/18 15:28 Active Medications - Current Medications Current Medications: Generic Name Dose Route Start Last Admin Trade Name Freq PRN Reason Stop Dose Admin Acetaminophen/Hydrocodone Bitart 1 each 11/15/18 04:51 12/05/18 04:08 [place] 5/325 PO 1 each Q4H PRN Administration Pain, Moderate (4-6) Albuterol 2.5 mg 11/01/18 17:15 Proventil IH Q3HRT PRN Shortness Of Breath Albuterol/Ipratropium 1 ampul 11/28/18 20:00 12/10/18 09:01 Duoneb *Not For Prn Use* IH 1 ampul BIDRT NORA Administration Lipase/Protease/Amylase 1 each 11/03/18 17:12 12/02/18 08:40 Pancreazadela Moore 10,500 Unit FEEDTUBE 1 each PRN PRN Administration For Clogged Feeding Tube Ascorbic Acid 500 mg 11/01/18 22:00 12/10/18 11:44 Vitamin C FEEDTUBE 500 mg BID NORA Administration Atorvastatin Calcium 40 mg 11/01/18 22:00 12/09/18 23:09 Lipitor FEEDTUBE 40 mg QHS NORA Administration Carvedilol 6.25 mg 11/08/18 13:00 12/10/18 11:45 Coreg PO 6.25 mg BID NORA Administration Clonidine HCl 0.2 mg 11/05/18 17:18 12/03/18 18:33 Catapres-Tts Patch TD 0.2 mg Tu NORA Administration Enoxaparin Sodium 40 mg 11/02/18 10:00 12/10/18 11:43 Lovenox SUB-Q 40 mg QDAY@1000 NORA Administration Hydralazine HCl 10 mg 11/25/18 22:00 12/10/18 11:44 Apresoline PO 10 mg Q12HR NORA Administration Daptomycin 400 mg/ Sodium 100 mls @ 200 mls/hr 11/25/18 11:00 12/10/18 11:46 Chloride IV 12/16/18 11:29 200 mls/hr Q24H NORA Administration Protocol Levetiracetam 500 mg 11/01/18 22:00 12/10/18 11:44 Keppra FEEDTUBE 500 mg BID NORA Administration Mineral Oil 133 ml 12/10/18 14:55 Fleet Mineral Oil [place] QDAY PRN Constipation Morphine Sulfate 2 mg 11/01/18 17:15 11/30/18 21:15 Morphine IV 2 mg Q4H PRN Administration Pain, Moderate (4-6) Multivitamins 5 ml 11/02/18 10:00 12/10/18 11:45 Centrum Liq FEEDTUBE 5 ml QDAY NORA Administration Polyethylene Glycol 17 gm 12/10/18 15:00 Miralax 3350 FEEDTUBE QDAY NORA Senna 8.6 mg 12/10/18 14:56 Senokot FEEDTUBE Q12H PRN Laxative Effect Simple Syrup 15 ml 11/03/18 17:12 11/16/18 13:40 Simple Syrup FEEDTUBE 15 ml PRN PRN Administration Hypoglycemia Simple Syrup 30 ml 11/03/18 17:12 Simple Syrup FEEDTUBE PRN PRN Hypoglycemia Sodium Bicarbonate 325 mg 11/03/18 17:12 12/02/18 08:40 Sodium Bicarbonate FEEDTUBE 325 mg PRN PRN Administration For Clogged Feeding Tube Sodium Biphosphate/Sodium Phosphate 133 ml 12/10/18 14:55 Fleet [place] QDAY PRN Bowel Movement Sodium Chloride 10 ml 11/01/18 22:00 12/10/18 11:45 Sodium Chloride Flush Syringe 10 Ml IV 10 ml BID NORA Administration Sodium Chloride 10 ml 11/01/18 17:15 11/23/18 04:05 Sodium Chloride Flush Syringe 10 Ml IV 10 ml PRN PRN Administration LINE FLUSH Zinc Sulfate 220 mg 11/02/18 10:00 12/10/18 11:46 Zinc Sulfate PO 220 mg DAILY NORA Administration Nutrition/Malnutrition Assess - Dietary Evaluation Nutrition/Malnutrition Findings: Nutrition Notes Start: 11/04/18 16:00 Freq: Status: Active Protocol: Document 12/06/18 21:03 RM (Rec: 12/06/18 21:05 RM [id number]) Nutrition Notes Initial or Follow up Reassessment Current Diagnosis COPD,Diabetes,Sepsis, Hypertension,Heart Failure, Stroke Other Pertinent Diagnosis Sacral PUs, UTI, Dementia Current Diet Nepro at 40 ml/hr Labs/Tests No recent labs Pertinent Medications Reviewed Height 5 ft 8 in Weight 62.5 kg [place] Body Weight (kg) 70.00 BMI 20.9 Subjective/Other Information Observed Nepro infusing at goal rate. Percent of energy/protein needs met: 100%/100% Burn Absent Trauma Absent #1 Nutrition Diagnosis Inadequate oral intake Diagnosis Progress(for reassessment Continues documentation) Is patient on ventilator? No Is Patient Ambulatory and/or Out of Bed No REE-([facility]-confined to bed) 3433.280 Calculation Used for Recommendations [facility] Additional Notes Protein Needs: 76-95g (1.2-1. 5g/kg) Fluid Needs: 1 ml/kcal Nutrition Intervention Nutrition Support: Nepro 1.8 at 40 ml/hr. Water flush of 200 mls q 4 hrs . Kcal 1,728 Protein (gm) 78 Fluid (mL) 698 Goal #1 TF tolerance Goal #2 Continue to meet at least 75% of calorie and protein needs via TF Anticipated Discharge Needs: Unable to determine at this time Follow-Up By: 12/13/18 Additional Comments Follow for TF tolerance
[2018-12-10] MEDS: MIRALAX 3350 FEEDTUBE SCH (20:44)
[2018-12-10] MEDS: CATAPRES-TTS PATCH TD SCH (20:46)
[2018-12-10] MEDS: MORPHINE IV PRN (23:15)
[2018-12-11] MEDS: DUONEB *Not for PRN Use IH SCH ×2 (07:42→21:47)
--- NOTE | 2018-12-11 09:10 | Progress Note ---
Assessment and Plan Cultures: Blood culture 10/01/2018 MRSA 2 of 4. Blood culture 10/03/2018 MRSA Blood culture 10/08/2018 no growth Blood culture 10/11/2018 no growth Blood culture 10/21/2018 no growth Blood culture 11/01/2018 Staph haemolyticus 2 of 4 bottles, resistent to methicillin and MRSA 1 of 4 bottles Blood culture 11/04/2018 no growth Assessment: 67 y/o male with history of HTN, CVA, Obstructive Uropathy, Contracture, Multiple Decubitus Ulcers, [place], DM, OA, Seizure Disorder, COPD, Dementia, Debility, BPH, well known to ID due to multiple admissions secondary to ducubitus ulcers infections and recurrent bacteremia, last time admitted on 10/02/2018 found with MRSA bacteremia jessica from decubitus ulcers mainly active large left trochanteric with bone exposure and sacral with bone exposure. Patient's infection was deemed incurable and hospice was recommended. Patient was discharged back to [facility] on IV vancomycin 1 gm every 48 hours for total 6 weeks ending 11/12/2018 via neck tunneled cath. Patient was readmitted on due to AMS, worsening SOB. Patient is lethargic and unable to provide history. At the [facility] he was found to have respiratory distress upon evaluation the morning of admission,pulse oximetry in the 80's: 1) Severe Sepsis: Resolved. Etiology most likely Recurrent Staph bacteremia +/- CAUTI. 2) Staph haemolyticus and MRSA bacteremia with recent MRSA bacteremia: Blood culture 11/01/2018 Staph haemolyticus 2 of 4 bottles and MRSA 1 of 4. Source likely multiple decubitus ulcers or Neck IV central line. Patient is failing vancomycin. He has a tunneled neck cath. Recent TTE negative for vegetations. On daptomycin. 3) Recent septic shock due to polymicrobial bacteremia ESBL and carbapenem resistant E coli, MDR Proteus, Strep and E faecalis on 07/29/2018 probably from multiple infected decubitus ulcers and less likely UTI. Repeat blood cultures 07/31/2018 showed same MDR E coli 1 of 4 bottles then 08/06/2018 blood cultures showed no growth. Patient was treated with Vabomere for 14 days. 4) Multiple infected decubitus ulcers: His prognosis has been poor and hospice has been recommended several times in the past but family has declined. declined. His wounds are not curable considering his contractures, bed bound status and poor nutritional status. There was also suspicion of septic arthritis of left hip from decubitus ulcer. S/p debridement of multiple pressure ulcerations on 11/07/2018- stage 4 left hip pressure ulceration was surgically excisionally debrided of necrotic bone, stage 3 sacral, right ankle and left heel pressure ulcers were then surgically, excisionally debrided of necrotic SQ fat, stage 4 right heel, left lateral heel and right lateral leg ulcerations were surgically, excisionally debrided of necrotic SQ tissue, muscle and fascia. Dr Man recommended bilateral AKA, patient and daughter refused. Dr Man recommended Orthopedic consultation for possible left hip disarticulation as his left hip joint is crumbling and has profuse purulent drainage. 5) Recurrent UTI: new bright placed this admission 6) Acute encephalopathy: multifactorial. 7) Acute resp failure: was on BIPAP now NC O2. EF 30-35% pericaldial and pleural effusion. 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 He needs to be on contact isolation. This cannot be cured with antibiotics. Needs to be hospice continue daptomycin at discharge will do daptomycin 400 mg IV q day for 6 weeks until 12/16/2018 ID is signing off, please call for questions. Grim prognosis. Jacquie Jean Baptiste NP [facility] M: [phone] O:[phone] Subjective Date of service: 12/11/18 Principal diagnosis: Severe Sepsis; Ac. Hypoxemic Resp failure; Anemia; Seizure; UTI; BPH Interval history: Patient seen and examined. Asleep, easy to arouse. No generalized pain reported. No fevers. Objective - Exam Narrative Exam: General appearance: Asleep. Easy to arouse. No acute distress. Eyes: anicteric sclerae, moist conjunctivae; no lid-lag; PERRLA HENT: Atraumatic; oropharynx limited Neck: Trachea midline; supple, no thyromegaly or lymphadenopathy Lungs: CTA CV: RRR no murmur Abdomen: Soft, non-tender Extremities: marked legs contractions, multiple decubitus ulcers covered with dressings. Right leg dressing with serosanguinous drainage. Skin: multiple skin tears Psych: Calm Neuro: asleep, easy to arouse - Constitutional Vitals: Vital Signs Temp Pulse Resp BP Pulse Ox 98.6 F 98 H 20 141/82 96 12/11/18 08:02 12/11/18 08:02 12/11/18 08:02 12/11/18 08:02 12/11/18 08:02 Temperature -Last 24 Hours Temperature 98.6 F Temperature 99.2 F Temperature 99.3 F Temperature 97.5 F - Labs CBC & Chem 7: 12/03/18 05:07 12/06/18 20:57 Labs: Abnormal lab results 12/10/18 12/11/18 12/11/18 Range/Units 11:28 00:24 06:44 POC Glucose 110 H 112 H 111 H (70-105)
[2018-12-11] MEDS: VITAMIN C FEEDTUBE SCH (10:21)
[2018-12-11] MEDS: KEPPRA FEEDTUBE SCH (10:21)
[2018-12-11] MEDS: APRESOLINE PO SCH (10:21)
[2018-12-11] MEDS: ZINC SULFATE PO SCH (10:22)
[2018-12-11] MEDS: COREG PO SCH (10:22)
[2018-12-11] MEDS: SODIUM CHLORIDE FLUSH SYRINGE 10 ML IV SCH (10:22)
[2018-12-11] MEDS: LOVENOX SUB-Q SCH (10:23)
[2018-12-11] MEDS: MIRALAX 3350 FEEDTUBE SCH (10:23)
[2018-12-11] MEDS: Centrum Liq FEEDTUBE SCH (10:23)
[2018-12-11] MEDS: DAPTOMYCIN IV SCH (10:40)
[2018-12-11] MEDS: NACL 0.9% IV SCH (10:40)
--- NOTE | 2018-12-11 12:56 | Progress Note ---
Assessment and Plan Patient is weak and contracted and has multiple pressure wounds. Patient is awake and on room air at this time. No acute respiratory distress. O2 sat 96%. Patient is afebrile. Patient is on I/V daptomycin for MRSA. - Patient Problems (1) Respiratory failure Current Visit: Yes Status: Acute Qualifiers: Chronicity: acute Respiratory failure complication: hypoxia Qualified Code(s): J96.01 - Acute respiratory failure with hypoxia Plan to address problem: Continue O2 supplementation 2 L via nasal canula. Albuterol and Atrovent treatment q6h. Patient is on Diptomycine as per infectious diseases. Continue SQ Levonox. Recommend GI prophylexis. (2) Seizure Current Visit: Yes Status: Acute Plan to address problem: Management as per neurologist. (3) Sepsis Current Visit: Yes Status: Acute Plan to address problem: Patient is on Daptomycine as per infectious diseases. (4) UTI (urinary tract infection) Current Visit: Yes Status: Acute Qualifiers: Encounter type: initial encounter Plan to address problem: Patient is on Daptomycine as per infectious diseases. (5) ARF (acute renal failure) with tubular necrosis Current Visit: No Status: Acute Plan to address problem: Management as per Nephrology. Subjective Date of service: 12/11/18 Principal diagnosis: Severe Sepsis; Ac. Hypoxemic Resp failure; Anemia; Seizure; UTI; BPH Interval history: Patient is weak and contracted and has multiple pressure wounds. Patient is sleeping and on room air at this time. No acute respiratory distress. O2 sat 96%. Patient is afebrile. Patient is on I/V daptomycin for MRSA. Objective Vital Signs - 12hr 12/11/18 12/11/18 12/11/18 04:11 04:24 07:44 Temperature 99.2 F Pulse Rate 94 H Pulse Rate [ 93 H Anterior Bilateral Throughout] Respiratory 22 Rate Respiratory 19 Rate [Anterior Bilateral Throughout] Blood Pressure 127/72 O2 Sat by Pulse 100 Oximetry 12/11/18 12/11/18 12/11/18 08:02 10:00 10:21 Temperature 98.6 F Pulse Rate 98 H 98 H Pulse Rate [ Anterior Bilateral Throughout] Respiratory 20 20 Rate Respiratory Rate [Anterior Bilateral Throughout] Blood Pressure 141/82 141/82 O2 Sat by Pulse 96 96 Oximetry 12/11/18 10:22 Temperature Pulse Rate 98 H Pulse Rate [ Anterior Bilateral Throughout] Respiratory Rate Respiratory Rate [Anterior Bilateral Throughout] Blood Pressure 141/82 O2 Sat by Pulse Oximetry Constitutional: no acute distress, asleep, other (Contracted. Multple pressure ulcers.) Eyes: non-icteric ENT: oropharynx moist Neck: no lymphadenopathy, no JVD, other (mild stiffness / contracture) Effort: mildly labored Ascultation: Bilateral: diminished breath sounds, rhonchi Percussion: Bilateral: not dull Cardiovascular: regular rate and rhythm Gastrointestinal: normoactive bowel sounds, soft, non-tender, non-distended Integumentary: rash Extremities: no cyanosis, no edema, pulses normal, other (Patient has pressure ulcer at multiple areas, including sacral area.) Neurologic: non-focal exam, pupils equal and round, CN II-XII normal, other (+ contractures) Psychiatric: mood appropriate, affect normal CBC and BMP: 12/03/18 05:07 12/06/18 20:57 ABG, PT/INR, D-dimer: ABG POC ABG pH 7.494 (7.35-7.45) H 11/01/18 15:27 POC ABG pCO2 34.5 (35-45) L 11/01/18 15:27 POC ABG pO2 139 (80-105) H 11/01/18 15:27 POC ABG HCO3 26.5 (22-26 mml/L) 11/01/18 15:27 POC ABG Total CO2 28 (23-27mmol/L) 11/01/18 15:27 POC ABG O2 Sat 99 11/01/18 15:27 PT/INR, D-dimer PT 16.3 Sec. (12.2-14.9) H 11/01/18 14:50 INR 1.35 (0.87-1.13) H 11/01/18 14:50 Abnormal lab findings: Abnormal Labs 11/01/18 11/01/18 11/01/18 14:50 14:50 14:50 WBC 15.3 H RBC 2.76 L Hgb 7.9 L Hct 23.5 L MCH MCHC RDW 18.3 H Plt Count 567 H Lymph % (Auto) 6.5 L [place] % (Auto) 8.5 H Eos % (Auto) Lymph # 1.0 L [place] # 1.3 H Eos # Seg Neutrophils % 83.4 H Seg Neutrophils # 12.7 H PT 16.3 H INR 1.35 H POC ABG pH POC ABG pCO2 POC ABG pO2 VBG pH Sodium Potassium Chloride Carbon Dioxide BUN 49 H Creatinine Glucose 132 H POC Glucose Magnesium AST 90 H ALT 77 H Alkaline Phosphatase 350 H Total Creatine Kinase NT-Pro-B Natriuret Pep Albumin 1.6 L Urine WBC (Auto) Crossmatch 11/01/18 11/01/18 11/01/18 14:50 14:50 15:27 WBC RBC Hgb Hct MCH MCHC RDW Plt Count Lymph % (Auto) [place] % (Auto) Eos % (Auto) Lymph # [place] # Eos # Seg Neutrophils % Seg Neutrophils # PT INR POC ABG pH 7.494 H POC ABG pCO2 34.5 L POC ABG pO2 139 H VBG pH 7.499 H Sodium Potassium Chloride Carbon Dioxide BUN Creatinine Glucose POC Glucose Magnesium AST ALT Alkaline Phosphatase Total Creatine Kinase NT-Pro-B Natriuret Pep 6776 H Albumin Urine WBC (Auto) Crossmatch 11/01/18 11/03/18 11/03/18 15:57 03:41 03:41 WBC 12.8 H RBC 2.55 L Hgb 6.9 L Hct 22.2 L MCH 27 L MCHC 31 L RDW 17.9 H Plt Count 519 H Lymph % (Auto) [place] % (Auto) Eos % (Auto) Lymph # [place] # Eos # Seg Neutrophils % Seg Neutrophils # PT INR POC ABG pH POC ABG pCO2 POC ABG pO2 VBG pH Sodium 147 H Potassium Chloride 110.3 H Carbon Dioxide BUN 55 H Creatinine Glucose POC Glucose Magnesium AST ALT Alkaline Phosphatase Total Creatine Kinase NT-Pro-B Natriuret Pep Albumin Urine WBC (Auto) > 182.0 H Crossmatch 11/03/18 11/04/18 11/04/18 12:51 05:12 05:12 WBC 11.5 H RBC 2.94 L Hgb 8.3 L Hct 25.3 L MCH MCHC RDW 17.3 H Plt Count 514 H Lymph % (Auto) [place] % (Auto) Eos % (Auto) Lymph # [place] # Eos # Seg Neutrophils % Seg Neutrophils # PT INR POC ABG pH POC ABG pCO2 POC ABG pO2 VBG pH Sodium 147 H Potassium Chloride 112.4 H Carbon Dioxide BUN 52 H Creatinine Glucose POC Glucose Magnesium AST ALT Alkaline Phosphatase Total Creatine Kinase NT-Pro-B Natriuret Pep Albumin Urine WBC (Auto) Crossmatch See Detail 11/05/18 11/05/18 11/06/18 04:50 04:50 05:42 WBC RBC 3.03 L 2.80 L Hgb 8.7 L 7.9 L Hct 26.6 L 24.7 L MCH MCHC RDW 17.1 H 17.0 H Plt Count 502 H 478 H Lymph % (Auto) 10.4 L [place] % (Auto) 8.6 H Eos % (Auto) 4.7 H Lymph # 1.0 L [place] # Eos # 0.5 H Seg Neutrophils % 75.6 H Seg Neutrophils # PT INR POC ABG pH POC ABG pCO2 POC ABG pO2 VBG pH Sodium 149 H Potassium Chloride 114.4 H Carbon Dioxide 21 L BUN 50 H Creatinine Glucose 108 H POC Glucose Magnesium AST ALT Alkaline Phosphatase Total Creatine Kinase NT-Pro-B Natriuret Pep Albumin Urine WBC (Auto) Crossmatch 11/06/18 11/11/18 11/12/18 05:42 18:54 00:22 WBC RBC Hgb Hct MCH MCHC RDW Plt Count Lymph % (Auto) [place] % (Auto) Eos % (Auto) Lymph # [place] # Eos # Seg Neutrophils % Seg Neutrophils # PT INR POC ABG pH POC ABG pCO2 POC ABG pO2 VBG pH Sodium 149 H Potassium Chloride 113.4 H Carbon Dioxide BUN 50 H Creatinine Glucose 121 H POC Glucose 114 H 123 H Magnesium AST ALT Alkaline Phosphatase Total Creatine Kinase NT-Pro-B Natriuret Pep Albumin Urine WBC (Auto) Crossmatch 11/12/18 11/12/18 11/13/18 06:49 11:35 06:34 WBC RBC Hgb Hct MCH MCHC RDW Plt Count Lymph % (Auto) [place] % (Auto) Eos % (Auto) Lymph # [place] # Eos # Seg Neutrophils % Seg Neutrophils # PT INR POC ABG pH POC ABG pCO2 POC ABG pO2 VBG pH Sodium Potassium Chloride Carbon Dioxide BUN Creatinine Glucose POC Glucose 129 H 123 H 128 H Magnesium AST ALT Alkaline Phosphatase Total Creatine Kinase NT-Pro-B Natriuret Pep Albumin Urine WBC (Auto) Crossmatch 11/13/18 11/13/18 11/13/18 09:26 09:26 15:13 WBC RBC 3.08 L Hgb 8.6 L Hct 27.3 L MCH MCHC 31 L RDW 18.3 H Plt Count 504 H Lymph % (Auto) 11.7 L [place] % (Auto) 7.5 H Eos % (Auto) 7.0 H Lymph # [place] # Eos # 0.7 H Seg Neutrophils % 72.9 H Seg Neutrophils # PT INR POC ABG pH POC ABG pCO2 POC ABG pO2 VBG pH Sodium 153 H Potassium 6.3 H* 5.8 H Chloride 122.3 H Carbon Dioxide 21 L BUN 38 H Creatinine Glucose 112 H POC Glucose Magnesium AST ALT Alkaline Phosphatase Total Creatine Kinase NT-Pro-B Natriuret Pep Albumin Urine WBC (Auto) Crossmatch 11/13/18 11/13/18 11/14/18 22:10 23:45 13:17 WBC RBC Hgb Hct MCH MCHC RDW Plt Count Lymph % (Auto) [place] % (Auto) Eos % (Auto) Lymph # [place] # Eos # Seg Neutrophils % Seg Neutrophils # PT INR POC ABG pH POC ABG pCO2 POC ABG pO2 VBG pH Sodium 155 H Potassium 5.3 H Chloride 122.3 H Carbon Dioxide BUN 35 H Creatinine Glucose 113 H POC Glucose 111 H 142 H Magnesium AST ALT Alkaline Phosphatase Total Creatine Kinase NT-Pro-B Natriuret Pep Albumin Urine WBC (Auto) Crossmatch 11/14/18 11/15/18 11/15/18 19:08 00:31 06:45 WBC RBC Hgb Hct MCH MCHC RDW Plt Count Lymph % (Auto) [place] % (Auto) Eos % (Auto) Lymph # [place] # Eos # Seg Neutrophils % Seg Neutrophils # PT INR POC ABG pH POC ABG pCO2 POC ABG pO2 VBG pH Sodium Potassium Chloride Carbon Dioxide BUN Creatinine Glucose POC Glucose 116 H 125 H 131 H Magnesium AST ALT Alkaline Phosphatase Total Creatine Kinase NT-Pro-B Natriuret Pep Albumin Urine WBC (Auto) Crossmatch 11/15/18 11/15/18 11/15/18 07:13 07:13 19:03 WBC 13.2 H RBC 2.81 L Hgb 7.8 L Hct 24.5 L MCH MCHC RDW 18.2 H Plt Count 454 H Lymph % (Auto) 9.0 L [place] % (Auto) 7.5 H Eos % (Auto) Lymph # [place] # 1.0 H Eos # 0.5 H Seg Neutrophils % 78.8 H Seg Neutrophils # 10.4 H PT INR POC ABG pH POC ABG pCO2 POC ABG pO2 VBG pH Sodium 149 H Potassium 5.2 H Chloride 117.2 H Carbon Dioxide BUN 38 H Creatinine Glucose 114 H POC Glucose 141 H Magnesium AST ALT Alkaline Phosphatase Total Creatine Kinase NT-Pro-B Natriuret Pep Albumin Urine WBC (Auto) Crossmatch 11/16/18 11/16/18 11/16/18 01:15 01:15 06:45 WBC RBC Hgb Hct MCH MCHC RDW Plt Count Lymph % (Auto) [place] % (Auto) Eos % (Auto) Lymph # [place] # Eos # Seg Neutrophils % Seg Neutrophils # PT INR POC ABG pH POC ABG pCO2 POC ABG pO2 VBG pH Sodium Potassium 5.3 H Chloride Carbon Dioxide BUN Creatinine Glucose POC Glucose 129 H Magnesium 2.60 H AST ALT Alkaline Phosphatase Total Creatine Kinase NT-Pro-B Natriuret Pep Albumin Urine WBC (Auto) Crossmatch 11/16/18 11/16/18 11/17/18 13:20 18:02 00:16 WBC RBC Hgb Hct MCH MCHC RDW Plt Count Lymph % (Auto) [place] % (Auto) Eos % (Auto) Lymph # [place] # Eos # Seg Neutrophils % Seg Neutrophils # PT INR POC ABG pH POC ABG pCO2 POC ABG pO2 VBG pH Sodium Potassium Chloride Carbon Dioxide BUN Creatinine Glucose POC Glucose 130 H 127 H 120 H Magnesium AST ALT Alkaline Phosphatase Total Creatine Kinase NT-Pro-B Natriuret Pep Albumin Urine WBC (Auto) Crossmatch 11/17/18 11/17/18 11/17/18 05:48 08:02 08:02 WBC RBC Hgb 7.5 L Hct 23.5 L MCH MCHC RDW Plt Count Lymph % (Auto) [place] % (Auto) Eos % (Auto) Lymph # [place] # Eos # Seg Neutrophils % Seg Neutrophils # PT INR POC ABG pH POC ABG pCO2 POC ABG pO2 VBG pH Sodium Potassium Chloride 110.1 H Carbon Dioxide 21 L BUN 38 H Creatinine Glucose 121 H POC Glucose 130 H Magnesium AST ALT Alkaline Phosphatase Total Creatine Kinase NT-Pro-B Natriuret Pep Albumin Urine WBC (Auto) Crossmatch 11/17/18 11/17/18 11/18/18 12:17 16:48 06:00 WBC RBC Hgb Hct MCH MCHC RDW Plt Count Lymph % (Auto) [place] % (Auto) Eos % (Auto) Lymph # [place] # Eos # Seg Neutrophils % Seg Neutrophils # PT INR POC ABG pH POC ABG pCO2 POC ABG pO2 VBG pH Sodium Potassium Chloride Carbon Dioxide BUN Creatinine Glucose POC Glucose 140 H 120 H 137 H Magnesium AST ALT Alkaline Phosphatase Total Creatine Kinase NT-Pro-B Natriuret Pep Albumin Urine WBC (Auto) Crossmatch 11/19/18 11/19/18 11/19/18 00:20 05:35 06:11 WBC RBC Hgb Hct MCH MCHC RDW Plt Count Lymph % (Auto) [place] % (Auto) Eos % (Auto) Lymph # [place] # Eos # Seg Neutrophils % Seg Neutrophils # PT INR POC ABG pH POC ABG pCO2 POC ABG pO2 VBG pH Sodium Potassium Chloride Carbon Dioxide BUN Creatinine Glucose POC Glucose 111 H 126 H Magnesium AST ALT Alkaline Phosphatase Total Creatine Kinase 53 L NT-Pro-B Natriuret Pep Albumin Urine WBC (Auto) Crossmatch 11/19/18 11/19/18 11/20/18 11:37 23:43 06:52 WBC RBC Hgb Hct MCH MCHC RDW Plt Count Lymph % (Auto) [place] % (Auto) Eos % (Auto) Lymph # [place] # Eos # Seg Neutrophils % Seg Neutrophils # PT INR POC ABG pH POC ABG pCO2 POC ABG pO2 VBG pH Sodium Potassium Chloride Carbon Dioxide BUN Creatinine Glucose POC Glucose 139 H 145 H 125 H Magnesium AST ALT Alkaline Phosphatase Total Creatine Kinase NT-Pro-B Natriuret Pep Albumin Urine WBC (Auto) Crossmatch 11/20/18 11/20/18 11/20/18 09:55 09:55 11:49 WBC RBC 3.04 L Hgb 8.4 L Hct 26.1 L MCH MCHC RDW 17.5 H Plt Count Lymph % (Auto) [place] % (Auto) Eos % (Auto) Lymph # [place] # Eos # Seg Neutrophils % Seg Neutrophils # PT INR POC ABG pH POC ABG pCO2 POC ABG pO2 VBG pH Sodium 149 H Potassium Chloride 114.5 H Carbon Dioxide 21 L BUN 35 H Creatinine Glucose 127 H POC Glucose 150 H Magnesium AST ALT Alkaline Phosphatase Total Creatine Kinase NT-Pro-B Natriuret Pep Albumin Urine WBC (Auto) Crossmatch 11/20/18 11/20/18 11/21/18 18:02 23:49 06:14 WBC RBC Hgb Hct MCH MCHC RDW Plt Count Lymph % (Auto) [place] % (Auto) Eos % (Auto) Lymph # [place] # Eos # Seg Neutrophils % Seg Neutrophils # PT INR POC ABG pH POC ABG pCO2 POC ABG pO2 VBG pH Sodium Potassium Chloride Carbon Dioxide BUN Creatinine Glucose POC Glucose 131 H 137 H 133 H Magnesium AST ALT Alkaline Phosphatase Total Creatine Kinase NT-Pro-B Natriuret Pep Albumin Urine WBC (Auto) Crossmatch 11/21/18 11/21/18 11/21/18 10:00 12:09 18:04 WBC RBC Hgb Hct MCH MCHC RDW Plt Count Lymph % (Auto) [place] % (Auto) Eos % (Auto) Lymph # [place] # Eos # Seg Neutrophils % Seg Neutrophils # PT INR POC ABG pH POC ABG pCO2 POC ABG pO2 VBG pH Sodium Potassium Chloride 110.6 H Carbon Dioxide BUN 31 H Creatinine Glucose 119 H POC Glucose 116 H 126 H Magnesium AST ALT Alkaline Phosphatase Total Creatine Kinase NT-Pro-B Natriuret Pep Albumin Urine WBC (Auto) Crossmatch 11/22/18 11/22/18 11/22/18 00:14 05:47 06:23 WBC RBC Hgb Hct MCH MCHC RDW Plt Count Lymph % (Auto) [place] % (Auto) Eos % (Auto) Lymph # [place] # Eos # Seg Neutrophils % Seg Neutrophils # PT INR POC ABG pH POC ABG pCO2 POC ABG pO2 VBG pH Sodium Potassium Chloride 107.6 H Carbon Dioxide BUN 32 H Creatinine 0.7 L Glucose 116 H POC Glucose 122 H 119 H Magnesium AST ALT Alkaline Phosphatase Total Creatine Kinase NT-Pro-B Natriuret Pep Albumin Urine WBC (Auto) Crossmatch 11/22/18 11/22/18 11/22/18 08:40 12:19 17:39 WBC RBC Hgb Hct MCH MCHC RDW Plt Count Lymph % (Auto) [place] % (Auto) Eos % (Auto) Lymph # [place] # Eos # Seg Neutrophils % Seg Neutrophils # PT INR POC ABG pH POC ABG pCO2 POC ABG pO2 VBG pH Sodium Potassium Chloride Carbon Dioxide BUN Creatinine Glucose POC Glucose 150 H 111 H 108 H Magnesium AST ALT Alkaline Phosphatase Total Creatine Kinase NT-Pro-B Natriuret Pep Albumin Urine WBC (Auto) Crossmatch 11/23/18 11/23/18 11/23/18 00:36 05:37 05:56 WBC RBC Hgb Hct MCH MCHC RDW Plt Count Lymph % (Auto) [place] % (Auto) Eos % (Auto) Lymph # [place] # Eos # Seg Neutrophils % Seg Neutrophils # PT INR POC ABG pH POC ABG pCO2 POC ABG pO2 VBG pH Sodium 136 L Potassium Chloride Carbon Dioxide BUN 30 H Creatinine 0.7 L Glucose 103 H POC Glucose 125 H 122 H Magnesium 2.50 H AST ALT Alkaline Phosphatase Total Creatine Kinase NT-Pro-B Natriuret Pep Albumin Urine WBC (Auto) Crossmatch 11/23/18 11/23/18 11/23/18 11:56 17:39 23:40 WBC RBC Hgb Hct MCH MCHC RDW Plt Count Lymph % (Auto) [place] % (Auto) Eos % (Auto) Lymph # [place] # Eos # Seg Neutrophils % Seg Neutrophils # PT INR POC ABG pH POC ABG pCO2 POC ABG pO2 VBG pH Sodium Potassium Chloride Carbon Dioxide BUN Creatinine Glucose POC Glucose 121 H 113 H 117 H Magnesium AST ALT Alkaline Phosphatase Total Creatine Kinase NT-Pro-B Natriuret Pep Albumin Urine WBC (Auto) Crossmatch 11/24/18 11/24/18 11/24/18 05:13 12:00 18:13 WBC RBC Hgb Hct MCH MCHC RDW Plt Count Lymph % (Auto) [place] % (Auto) Eos % (Auto) Lymph # [place] # Eos # Seg Neutrophils % Seg Neutrophils # PT INR POC ABG pH POC ABG pCO2 POC ABG pO2 VBG pH Sodium Potassium Chloride Carbon Dioxide BUN Creatinine Glucose POC Glucose 143 H 123 H 124 H Magnesium AST ALT Alkaline Phosphatase Total Creatine Kinase NT-Pro-B Natriuret Pep Albumin Urine WBC (Auto) Crossmatch 11/24/18 11/25/18 11/25/18 23:34 05:25 05:25 WBC RBC 2.48 L Hgb 6.8 L Hct 21.2 L MCH MCHC RDW 17.7 H Plt Count Lymph % (Auto) [place] % (Auto) Eos % (Auto) Lymph # [place] # Eos # Seg Neutrophils % Seg Neutrophils # PT INR POC ABG pH POC ABG pCO2 POC ABG pO2 VBG pH Sodium Potassium Chloride 108.8 H Carbon Dioxide BUN 30 H Creatinine 0.7 L Glucose 112 H POC Glucose 115 H Magnesium AST ALT Alkaline Phosphatase Total Creatine Kinase NT-Pro-B Natriuret Pep Albumin Urine WBC (Auto) Crossmatch 11/25/18 11/25/18 11/25/18 06:46 11:15 11:28 WBC RBC Hgb 7.4 L Hct 23.0 L MCH MCHC RDW Plt Count Lymph % (Auto) [place] % (Auto) Eos % (Auto) Lymph # [place] # Eos # Seg Neutrophils % Seg Neutrophils # PT INR POC ABG pH POC ABG pCO2 POC ABG pO2 VBG pH Sodium Potassium Chloride Carbon Dioxide BUN Creatinine Glucose POC Glucose 133 H 127 H Magnesium AST ALT Alkaline Phosphatase Total Creatine Kinase NT-Pro-B Natriuret Pep Albumin Urine WBC (Auto) Crossmatch 11/25/18 11/25/18 11/25/18 15:28 17:32 23:45 WBC RBC Hgb Hct MCH MCHC RDW Plt Count Lymph % (Auto) [place] % (Auto) Eos % (Auto) Lymph # [place] # Eos # Seg Neutrophils % Seg Neutrophils # PT INR POC ABG pH POC ABG pCO2 POC ABG pO2 VBG pH Sodium Potassium Chloride Carbon Dioxide BUN Creatinine Glucose POC Glucose 115 H 130 H Magnesium AST ALT Alkaline Phosphatase Total Creatine Kinase NT-Pro-B Natriuret Pep Albumin Urine WBC (Auto) Crossmatch See Detail 11/26/18 11/26/18 11/26/18 06:13 06:20 06:20 WBC RBC 2.76 L Hgb 7.7 L Hct 23.4 L MCH MCHC RDW 17.5 H Plt Count Lymph % (Auto) [place] % (Auto) Eos % (Auto) Lymph # [place] # Eos # Seg Neutrophils % Seg Neutrophils # PT INR POC ABG pH POC ABG pCO2 POC ABG pO2 VBG pH Sodium Potassium Chloride 109.9 H Carbon Dioxide BUN 30 H Creatinine 0.6 L Glucose 121 H POC Glucose 129 H Magnesium AST ALT Alkaline Phosphatase Total Creatine Kinase NT-Pro-B Natriuret Pep Albumin Urine WBC (Auto) Crossmatch 11/26/18 11/26/18 11/27/18 12:06 16:35 06:04 WBC RBC Hgb Hct MCH MCHC RDW Plt Count Lymph % (Auto) [place] % (Auto) Eos % (Auto) Lymph # [place] # Eos # Seg Neutrophils % Seg Neutrophils # PT INR POC ABG pH POC ABG pCO2 POC ABG pO2 VBG pH Sodium Potassium Chloride Carbon Dioxide BUN Creatinine Glucose POC Glucose 139 H 107 H 126 H Magnesium AST ALT Alkaline Phosphatase Total Creatine Kinase NT-Pro-B Natriuret Pep Albumin Urine WBC (Auto) Crossmatch 11/27/18 11/27/18 11/28/18 13:14 17:47 07:03 WBC RBC Hgb Hct MCH MCHC RDW Plt Count Lymph % (Auto) [place] % (Auto) Eos % (Auto) Lymph # [place] # Eos # Seg Neutrophils % Seg Neutrophils # PT INR POC ABG pH POC ABG pCO2 POC ABG pO2 VBG pH Sodium Potassium Chloride Carbon Dioxide BUN Creatinine Glucose POC Glucose 130 H 115 H 118 H Magnesium AST ALT Alkaline Phosphatase Total Creatine Kinase NT-Pro-B Natriuret Pep Albumin Urine WBC (Auto) Crossmatch 11/28/18 11/29/18 11/29/18 11:38 00:35 04:56 WBC RBC Hgb Hct MCH MCHC RDW Plt Count Lymph % (Auto) [place] % (Auto) Eos % (Auto) Lymph # [place] # Eos # Seg Neutrophils % Seg Neutrophils # PT INR POC ABG pH POC ABG pCO2 POC ABG pO2 VBG pH Sodium Potassium Chloride Carbon Dioxide BUN Creatinine Glucose POC Glucose 126 H 107 H Magnesium AST ALT Alkaline Phosphatase Total Creatine Kinase 50 L NT-Pro-B Natriuret Pep Albumin Urine WBC (Auto) Crossmatch 11/29/18 11/29/18 11/29/18 05:49 11:46 18:17 WBC RBC Hgb Hct MCH MCHC RDW Plt Count Lymph % (Auto) [place] % (Auto) Eos % (Auto) Lymph # [place] # Eos # Seg Neutrophils % Seg Neutrophils # PT INR POC ABG pH POC ABG pCO2 POC ABG pO2 VBG pH Sodium Potassium Chloride Carbon Dioxide BUN Creatinine Glucose POC Glucose 128 H 140 H 115 H Magnesium AST ALT Alkaline Phosphatase Total Creatine Kinase NT-Pro-B Natriuret Pep Albumin Urine WBC (Auto) Crossmatch 11/30/18 11/30/18 11/30/18 00:00 03:30 03:30 WBC RBC 2.97 L Hgb 8.1 L Hct 25.5 L MCH 27 L MCHC RDW 17.7 H Plt Count Lymph % (Auto) 9.2 L [place] % (Auto) 10.0 H Eos % (Auto) 4.6 H Lymph # 1.0 L [place] # 1.1 H Eos # 0.5 H Seg Neutrophils % 75.6 H Seg Neutrophils # 8.4 H PT INR POC ABG pH POC ABG pCO2 POC ABG pO2 VBG pH Sodium Potassium Chloride Carbon Dioxide BUN 31 H Creatinine 0.7 L Glucose POC Glucose 120 H Magnesium AST ALT Alkaline Phosphatase Total Creatine Kinase NT-Pro-B Natriuret Pep Albumin Urine WBC (Auto) Crossmatch 11/30/18 11/30/18 11/30/18 06:54 11:45 16:59 WBC RBC Hgb Hct MCH MCHC RDW Plt Count Lymph % (Auto) [place] % (Auto) Eos % (Auto) Lymph # [place] # Eos # Seg Neutrophils % Seg Neutrophils # PT INR POC ABG pH POC ABG pCO2 POC ABG pO2 VBG pH Sodium Potassium Chloride Carbon Dioxide BUN Creatinine Glucose POC Glucose 120 H 123 H 111 H Magnesium AST ALT Alkaline Phosphatase Total Creatine Kinase NT-Pro-B Natriuret Pep Albumin Urine WBC (Auto) Crossmatch 12/01/18 12/01/18 12/01/18 00:20 05:58 11:33 WBC RBC Hgb Hct MCH MCHC RDW Plt Count Lymph % (Auto) [place] % (Auto) Eos % (Auto) Lymph # [place] # Eos # Seg Neutrophils % Seg Neutrophils # PT INR POC ABG pH POC ABG pCO2 POC ABG pO2 VBG pH Sodium Potassium Chloride Carbon Dioxide BUN Creatinine Glucose POC Glucose 113 H 127 H 138 H Magnesium AST ALT Alkaline Phosphatase Total Creatine Kinase NT-Pro-B Natriuret Pep Albumin Urine WBC (Auto) Crossmatch 12/02/18 12/03/18 12/03/18 00:33 05:07 05:07 WBC RBC 2.93 L Hgb 8.2 L Hct 24.9 L MCH MCHC RDW 17.0 H Plt Count 470 H Lymph % (Auto) 9.3 L [place] % (Auto) 8.6 H Eos % (Auto) 5.4 H Lymph # 0.9 L [place] # Eos # 0.5 H Seg Neutrophils % 75.8 H Seg Neutrophils # PT INR POC ABG pH POC ABG pCO2 POC ABG pO2 VBG pH Sodium Potassium Chloride Carbon Dioxide BUN 30 H Creatinine 0.6 L Glucose 115 H POC Glucose 110 H Magnesium AST ALT Alkaline Phosphatase Total Creatine Kinase NT-Pro-B Natriuret Pep Albumin Urine WBC (Auto) Crossmatch 12/03/18 12/03/18 12/03/18 05:58 11:49 17:44 WBC RBC Hgb Hct MCH MCHC RDW Plt Count Lymph % (Auto) [place] % (Auto) Eos % (Auto) Lymph # [place] # Eos # Seg Neutrophils % Seg Neutrophils # PT INR POC ABG pH POC ABG pCO2 POC ABG pO2 VBG pH Sodium Potassium Chloride Carbon Dioxide BUN Creatinine Glucose POC Glucose 127 H 138 H 127 H Magnesium AST ALT Alkaline Phosphatase Total Creatine Kinase NT-Pro-B Natriuret Pep Albumin Urine WBC (Auto) Crossmatch 12/05/18 12/05/18 12/05/18 00:22 05:53 17:18 WBC RBC Hgb Hct MCH MCHC RDW Plt Count Lymph % (Auto) [place] % (Auto) Eos % (Auto) Lymph # [place] # Eos # Seg Neutrophils % Seg Neutrophils # PT INR POC ABG pH POC ABG pCO2 POC ABG pO2 VBG pH Sodium Potassium Chloride Carbon Dioxide BUN Creatinine Glucose POC Glucose 124 H 121 H 112 H Magnesium AST ALT Alkaline Phosphatase Total Creatine Kinase NT-Pro-B Natriuret Pep Albumin Urine WBC (Auto) Crossmatch 12/06/18 12/06/18 12/06/18 00:07 06:16 11:43 WBC RBC Hgb Hct MCH MCHC RDW Plt Count Lymph % (Auto) [place] % (Auto) Eos % (Auto) Lymph # [place] # Eos # Seg Neutrophils % Seg Neutrophils # PT INR POC ABG pH POC ABG pCO2 POC ABG pO2 VBG pH Sodium Potassium Chloride Carbon Dioxide BUN Creatinine Glucose POC Glucose 111 H 117 H 121 H Magnesium AST ALT Alkaline Phosphatase Total Creatine Kinase NT-Pro-B Natriuret Pep Albumin Urine WBC (Auto) Crossmatch 12/06/18 12/07/18 12/07/18 20:57 06:41 12:09 WBC RBC Hgb Hct MCH MCHC RDW Plt Count Lymph % (Auto) [place] % (Auto) Eos % (Auto) Lymph # [place] # Eos # Seg Neutrophils % Seg Neutrophils # PT INR POC ABG pH POC ABG pCO2 POC ABG pO2 VBG pH Sodium Potassium Chloride 107.2 H Carbon Dioxide BUN 27 H Creatinine 0.7 L Glucose POC Glucose 128 H 137 H Magnesium 2.50 H AST ALT Alkaline Phosphatase Total Creatine Kinase NT-Pro-B Natriuret Pep Albumin Urine WBC (Auto) Crossmatch 12/07/18 12/08/18 12/08/18 19:29 05:44 12:27 WBC RBC Hgb Hct MCH MCHC RDW Plt Count Lymph % (Auto) [place] % (Auto) Eos % (Auto) Lymph # [place] # Eos # Seg Neutrophils % Seg Neutrophils # PT INR POC ABG pH POC ABG pCO2 POC ABG pO2 VBG pH Sodium Potassium Chloride Carbon Dioxide BUN Creatinine Glucose POC Glucose 110 H 126 H 130 H Magnesium AST ALT Alkaline Phosphatase Total Creatine Kinase NT-Pro-B Natriuret Pep Albumin Urine WBC (Auto) Crossmatch 12/08/18 12/09/18 12/09/18 17:44 00:20 06:42 WBC RBC Hgb Hct MCH MCHC RDW Plt Count Lymph % (Auto) [place] % (Auto) Eos % (Auto) Lymph # [place] # Eos # Seg Neutrophils % Seg Neutrophils # PT INR POC ABG pH POC ABG pCO2 POC ABG pO2 VBG pH Sodium Potassium Chloride Carbon Dioxide BUN Creatinine Glucose POC Glucose 113 H 121 H 124 H Magnesium AST ALT Alkaline Phosphatase Total Creatine Kinase NT-Pro-B Natriuret Pep Albumin Urine WBC (Auto) Crossmatch 12/09/18 12/09/18 12/09/18 12:24 18:41 23:48 WBC RBC Hgb Hct MCH MCHC RDW Plt Count Lymph % (Auto) [place] % (Auto) Eos % (Auto) Lymph # [place] # Eos # Seg Neutrophils % Seg Neutrophils # PT INR POC ABG pH POC ABG pCO2 POC ABG pO2 VBG pH Sodium Potassium Chloride Carbon Dioxide BUN Creatinine Glucose POC Glucose 114 H 109 H 128 H Magnesium AST ALT Alkaline Phosphatase Total Creatine Kinase NT-Pro-B Natriuret Pep Albumin Urine WBC (Auto) Crossmatch 12/10/18 12/10/18 12/11/18 07:07 11:28 00:24 WBC RBC Hgb Hct MCH MCHC RDW Plt Count Lymph % (Auto) [place] % (Auto) Eos % (Auto) Lymph # [place] # Eos # Seg Neutrophils % Seg Neutrophils # PT INR POC ABG pH POC ABG pCO2 POC ABG pO2 VBG pH Sodium Potassium Chloride Carbon Dioxide BUN Creatinine Glucose POC Glucose 111 H 110 H 112 H Magnesium AST ALT Alkaline Phosphatase Total Creatine Kinase NT-Pro-B Natriuret Pep Albumin Urine WBC (Auto) Crossmatch 12/11/18 12/11/18 06:44 11:53 WBC RBC Hgb Hct MCH MCHC RDW Plt Count Lymph % (Auto) [place] % (Auto) Eos % (Auto) Lymph # [place] # Eos # Seg Neutrophils % Seg Neutrophils # PT INR POC ABG pH POC ABG pCO2 POC ABG pO2 VBG pH Sodium Potassium Chloride Carbon Dioxide BUN Creatinine Glucose POC Glucose 111 H 132 H Magnesium AST ALT Alkaline Phosphatase Total Creatine Kinase NT-Pro-B Natriuret Pep Albumin Urine WBC (Auto) Crossmatch Allied health notes reviewed: nursing
[2018-12-11] MEDS: TYLENOL FEEDTUBE PRN (16:39)
--- NOTE | 2018-12-11 16:49 | Progress Note ---
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 Pt is stuporous and unable to provide history. Pt history taken from ED Staff, EMS, and SNF Staff. As per staff, the patient was found to have respiratory distress upon evaluation this morning. Pt found to have pulse oximetry in the 80's. EMS notified and patient subsequently transported to [facility] for further care and evaluation. Pt seen and evaluated in ED and found to have UTI, Sepsis, Encephalopathy as well as Acute Hypoxemic Respiratory Failure. Pt initiated on NIPPV in ED with improvement in symptoms. Pt admitted to IMCU and initiated on Sepsis protocol. Prior admission on 10/01/18 reviewed. 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 He needs to be on contact isolation. This cannot be cured with antibiotics. recommend palliative care/comfort care or hospice, family are not interested in that option, continue daptomycin , at discharge will do daptomycin 400 mg IV q day for 6 weeks until 12/16/2018 sacral pressure ulcer -infected. POA WOUND CARE CONSULT. CONTINUE ABX. Debridement done by Dr Man Amputation recommended and the daughter refused Respiratory failure Supplemental oxygen, nebulizer therapy, mgt per pulmonology Anemia of chronic disease Transfused one unit PRBC hemoglobin is stable Seizure Continue current therapy, seizure precautions. BPH Continue Chaudhary catherter Dementia supportive care DVT prophylaxis Prophylactic lovenox POOR PROGNOSIS Disposition; pending SNF placement. . Subjective Date of service: 12/11/18 Principal diagnosis: Severe Sepsis; Ac. Hypoxemic Resp failure; Anemia; Seizure; UTI; BPH Interval history: Same condition Objective - Constitutional Vitals: Vital Signs - 12hr 12/11/18 12/11/18 12/11/18 07:44 08:02 10:00 Temperature 98.6 F Pulse Rate 98 H Pulse Rate [ 93 H Anterior Bilateral Throughout] Respiratory 20 20 Rate Respiratory 19 Rate [Anterior Bilateral Throughout] Blood Pressure 141/82 O2 Sat by Pulse 96 96 Oximetry 12/11/18 12/11/18 12/11/18 10:21 10:22 14:11 Temperature 100.9 F H Pulse Rate 98 H 98 H 91 H Pulse Rate [ Anterior Bilateral Throughout] Respiratory Rate Respiratory Rate [Anterior Bilateral Throughout] Blood Pressure 141/82 141/82 128/74 O2 Sat by Pulse 95 Oximetry 12/11/18 16:39 Temperature Pulse Rate Pulse Rate [ Anterior Bilateral Throughout] Respiratory 18 Rate Respiratory Rate [Anterior Bilateral Throughout] Blood Pressure O2 Sat by Pulse Oximetry General appearance: Present: no acute distress, well-nourished - EENT Eyes: PERRL, EOM intact ENT: hearing intact, clear oral mucosa Ears: bilateral: normal - Neck Neck: supple, normal ROM - Respiratory Respiratory effort: normal Respiratory: bilateral: CTA - Breasts Breasts: normal - Cardiovascular Rhythm: regular Heart Sounds: Present: S1 & S2. Absent: gallop, rub Extremities: pulses intact, No edema, normal color, Full ROM - Gastrointestinal General gastrointestinal: Present: soft, non-tender, non-distended, normal bowel sounds - Genitourinary Male genitourinary: normal - Integumentary Integumentary: clear, warm, dry - Musculoskeletal Musculoskeletal: strength equal bilaterally, other (Large sacral decubitus ulcer) - Neurologic Neurologic: moves all extremities - Psychiatric Psychiatric: memory intact, appropriate mood/affect, intact judgment & insight - Allied health notes Allied health notes reviewed: nursing, case management - Labs CBC & Chem 7: 12/12/18 00:05 12/06/18 20:57 Labs: Abnormal lab results 12/11/18 12/11/18 12/11/18 Range/Units 00:24 06:44 11:53 POC Glucose 112 H 111 H 132 H (70-105)
[2018-12-12] MEDS: KEPPRA FEEDTUBE SCH ×2 (00:13→10:52)
[2018-12-12] MEDS: APRESOLINE PO SCH ×2 (00:14→10:52)
[2018-12-12] MEDS: COREG PO SCH ×2 (00:14→10:52)
[2018-12-12] MEDS: VITAMIN C FEEDTUBE SCH ×2 (00:15→10:52)
[2018-12-12 00:59] LABS: Basophils # (Auto) 0.1 K/mm3 (0.0-0.1); Basophils % (Auto) 0.9 % (0.0-1.8); Eosinophils # (Auto) 0.5 K/mm3 (0.0-0.4); Eosinophils % (Auto) 5.4 % (0.0-4.3); Hematocrit 24.4 % (35.5-45.6); Hemoglobin 7.8 gm/dl (11.8-15.2); Lymphocytes # (Auto) 1.3 K/mm3 (1.2-5.4); Lymphocytes % (Auto) 13.5 % (13.4-35.0); Mean Corpuscular HGB Conc 32 % (32-34); Mean Corpuscular Volume 86 fl (84-94); Monocytes # (Auto) 1.1 K/mm3 (0.0-0.8); Monocytes % (Auto) 11.2 % (0.0-7.3); Platelet Count 459 K/mm3 (140-440); Red Blood Count 2.85 M/mm3 (3.65-5.03); Red Cell Distribution Width 17.4 % (13.2-15.2)
[2018-12-12] MEDS: DUONEB *Not for PRN Use IH SCH ×2 (07:27→19:46)
[2018-12-12] MEDS: ZINC SULFATE PO SCH (10:52)
[2018-12-12] MEDS: Centrum Liq FEEDTUBE SCH (10:52)
[2018-12-12] MEDS: MIRALAX 3350 FEEDTUBE SCH (10:52)
[2018-12-12] MEDS: LOVENOX SUB-Q SCH (10:53)
[2018-12-12] MEDS: SODIUM CHLORIDE FLUSH SYRINGE 10 ML IV SCH (10:53)
[2018-12-12] MEDS: DAPTOMYCIN IV SCH (10:58)
[2018-12-12] MEDS: NACL 0.9% IV SCH (10:58)
--- NOTE | 2018-12-12 14:03 | Progress Note ---
Assessment and Plan Severe Sepsis Acute Hypoxemic Respiratory failure Anemia of chronic disease Seizure UTI (urinary tract infection) BPH Dementia sacral pressure ulcer -infected. POA - continue supplemental oxygen as needed to keep O2 sat's > 90% - continue bronchodilators with pulmonary hygiene per RT (will stop scheduled treatments) - continue aspiration precautions - complete antibiotics per ID rec's (On Daptomycin) - prn BIPAP for increased work of breathing - prn CXR's - continue Coreg re: SVT - continue AED's for seizure control (Keppra) - continue fall precautions & neurochecks - enteral nutrition as tolerated - continue wound care per WCT - continue bright catheter re: Obstructive Uropathy - GI & VTE prophylaxis - continue mobility protocol for pressure ulcer prophylaxis - continue other care per attending / other consultants ...... remains Full CODE ... re-evaluate in am & prn Subjective Date of service: 12/12/18 Principal diagnosis: Severe Sepsis; Ac. Hypoxemic Resp failure; Anemia; Seizure; UTI; BPH Interval history: Patient is seen today for: Severe Sepsis; Acute Hypoxemic Respiratory failure; Anemia of chronic disease; Seizure; UTI (urinary tract infection); BPH; Dem entia; sacral pressure ulcer -infected. POA Seen and examined at bedside; 24-hour events reviewed; nursing and respiratory care staff consulted; no adverse overnight events reported to me; resting peacefully in bed; remains on daptomycin; still unable to place but discharge planning ongoing; he denies N/V/F/C Objective Vital Signs - 12hr 12/12/18 12/12/18 12/12/18 02:33 07:27 07:41 Temperature 99.1 F Pulse Rate Pulse Rate [ 93 H Anterior Bilateral Throughout] Respiratory Rate Respiratory 17 Rate [Anterior Bilateral Throughout] Blood Pressure O2 Sat by Pulse 95 Oximetry 12/12/18 08:01 Temperature 98.9 F Pulse Rate 85 Pulse Rate [ Anterior Bilateral Throughout] Respiratory 20 Rate Respiratory Rate [Anterior Bilateral Throughout] Blood Pressure 114/68 O2 Sat by Pulse 94 Oximetry Constitutional: no acute distress, alert, other (elderly looking AAM, normocephalic with mildly increased resp effort at rest) Eyes: non-icteric ENT: oropharynx moist Neck: no lymphadenopathy, no JVD, other (mild stiffness / contracture) Effort: normal Ascultation: Bilateral: diminished breath sounds Percussion: Bilateral: not dull Cardiovascular: regular rate and rhythm Gastrointestinal: normoactive bowel sounds, soft, non-tender, non-distended Integumentary: rash Extremities: no cyanosis, no edema, pulses normal, other (Patient has pressure ulcer at multiple areas, including sacral area.) Neurologic: non-focal exam, pupils equal and round, CN II-XII normal, other (+ contractures) Psychiatric: mood appropriate, affect normal CBC and BMP: 12/14/18 04:44 12/14/18 04:44 ABG, PT/INR, D-dimer: ABG POC ABG pH 7.494 (7.35-7.45) H 11/01/18 15:27 POC ABG pCO2 34.5 (35-45) L 11/01/18 15:27 POC ABG pO2 139 (80-105) H 11/01/18 15:27 POC ABG HCO3 26.5 (22-26 mml/L) 11/01/18 15:27 POC ABG Total CO2 28 (23-27mmol/L) 11/01/18 15:27 POC ABG O2 Sat 99 11/01/18 15:27 PT/INR, D-dimer PT 16.3 Sec. (12.2-14.9) H 11/01/18 14:50 INR 1.35 (0.87-1.13) H 11/01/18 14:50 Abnormal lab findings: Abnormal Labs 11/01/18 11/01/18 11/01/18 14:50 14:50 14:50 WBC 15.3 H RBC 2.76 L Hgb 7.9 L Hct 23.5 L MCH MCHC RDW 18.3 H Plt Count 567 H Lymph % (Auto) 6.5 L [place] % (Auto) 8.5 H Eos % (Auto) Lymph # 1.0 L [place] # 1.3 H Eos # Seg Neutrophils % 83.4 H Seg Neutrophils # 12.7 H PT 16.3 H INR 1.35 H POC ABG pH POC ABG pCO2 POC ABG pO2 VBG pH Sodium Potassium Chloride Carbon Dioxide BUN 49 H Creatinine Glucose 132 H POC Glucose Magnesium AST 90 H ALT 77 H Alkaline Phosphatase 350 H Total Creatine Kinase NT-Pro-B Natriuret Pep Albumin 1.6 L Urine WBC (Auto) Crossmatch 11/01/18 11/01/18 11/01/18 14:50 14:50 15:27 WBC RBC Hgb Hct MCH MCHC RDW Plt Count Lymph % (Auto) [place] % (Auto) Eos % (Auto) Lymph # [place] # Eos # Seg Neutrophils % Seg Neutrophils # PT INR POC ABG pH 7.494 H POC ABG pCO2 34.5 L POC ABG pO2 139 H VBG pH 7.499 H Sodium Potassium Chloride Carbon Dioxide BUN Creatinine Glucose POC Glucose Magnesium AST ALT Alkaline Phosphatase Total Creatine Kinase NT-Pro-B Natriuret Pep 6776 H Albumin Urine WBC (Auto) Crossmatch 11/01/18 11/03/18 11/03/18 15:57 03:41 03:41 WBC 12.8 H RBC 2.55 L Hgb 6.9 L Hct 22.2 L MCH 27 L MCHC 31 L RDW 17.9 H Plt Count 519 H Lymph % (Auto) [place] % (Auto) Eos % (Auto) Lymph # [place] # Eos # Seg Neutrophils % Seg Neutrophils # PT INR POC ABG pH POC ABG pCO2 POC ABG pO2 VBG pH Sodium 147 H Potassium Chloride 110.3 H Carbon Dioxide BUN 55 H Creatinine Glucose POC Glucose Magnesium AST ALT Alkaline Phosphatase Total Creatine Kinase NT-Pro-B Natriuret Pep Albumin Urine WBC (Auto) > 182.0 H Crossmatch 11/03/18 11/04/18 11/04/18 12:51 05:12 05:12 WBC 11.5 H RBC 2.94 L Hgb 8.3 L Hct 25.3 L MCH MCHC RDW 17.3 H Plt Count 514 H Lymph % (Auto) [place] % (Auto) Eos % (Auto) Lymph # [place] # Eos # Seg Neutrophils % Seg Neutrophils # PT INR POC ABG pH POC ABG pCO2 POC ABG pO2 VBG pH Sodium 147 H Potassium Chloride 112.4 H Carbon Dioxide BUN 52 H Creatinine Glucose POC Glucose Magnesium AST ALT Alkaline Phosphatase Total Creatine Kinase NT-Pro-B Natriuret Pep Albumin Urine WBC (Auto) Crossmatch See Detail 11/05/18 11/05/18 11/06/18 04:50 04:50 05:42 WBC RBC 3.03 L 2.80 L Hgb 8.7 L 7.9 L Hct 26.6 L 24.7 L MCH MCHC RDW 17.1 H 17.0 H Plt Count 502 H 478 H Lymph % (Auto) 10.4 L [place] % (Auto) 8.6 H Eos % (Auto) 4.7 H Lymph # 1.0 L [place] # Eos # 0.5 H Seg Neutrophils % 75.6 H Seg Neutrophils # PT INR POC ABG pH POC ABG pCO2 POC ABG pO2 VBG pH Sodium 149 H Potassium Chloride 114.4 H Carbon Dioxide 21 L BUN 50 H Creatinine Glucose 108 H POC Glucose Magnesium AST ALT Alkaline Phosphatase Total Creatine Kinase NT-Pro-B Natriuret Pep Albumin Urine WBC (Auto) Crossmatch 11/06/18 11/11/18 11/12/18 05:42 18:54 00:22 WBC RBC Hgb Hct MCH MCHC RDW Plt Count Lymph % (Auto) [place] % (Auto) Eos % (Auto) Lymph # [place] # Eos # Seg Neutrophils % Seg Neutrophils # PT INR POC ABG pH POC ABG pCO2 POC ABG pO2 VBG pH Sodium 149 H Potassium Chloride 113.4 H Carbon Dioxide BUN 50 H Creatinine Glucose 121 H POC Glucose 114 H 123 H Magnesium AST ALT Alkaline Phosphatase Total Creatine Kinase NT-Pro-B Natriuret Pep Albumin Urine WBC (Auto) Crossmatch 11/12/18 11/12/18 11/13/18 06:49 11:35 06:34 WBC RBC Hgb Hct MCH MCHC RDW Plt Count Lymph % (Auto) [place] % (Auto) Eos % (Auto) Lymph # [place] # Eos # Seg Neutrophils % Seg Neutrophils # PT INR POC ABG pH POC ABG pCO2 POC ABG pO2 VBG pH Sodium Potassium Chloride Carbon Dioxide BUN Creatinine Glucose POC Glucose 129 H 123 H 128 H Magnesium AST ALT Alkaline Phosphatase Total Creatine Kinase NT-Pro-B Natriuret Pep Albumin Urine WBC (Auto) Crossmatch 11/13/18 11/13/18 11/13/18 09:26 09:26 15:13 WBC RBC 3.08 L Hgb 8.6 L Hct 27.3 L MCH MCHC 31 L RDW 18.3 H Plt Count 504 H Lymph % (Auto) 11.7 L [place] % (Auto) 7.5 H Eos % (Auto) 7.0 H Lymph # [place] # Eos # 0.7 H Seg Neutrophils % 72.9 H Seg Neutrophils # PT INR POC ABG pH POC ABG pCO2 POC ABG pO2 VBG pH Sodium 153 H Potassium 6.3 H* 5.8 H Chloride 122.3 H Carbon Dioxide 21 L BUN 38 H Creatinine Glucose 112 H POC Glucose Magnesium AST ALT Alkaline Phosphatase Total Creatine Kinase NT-Pro-B Natriuret Pep Albumin Urine WBC (Auto) Crossmatch 11/13/18 11/13/18 11/14/18 22:10 23:45 13:17 WBC RBC Hgb Hct MCH MCHC RDW Plt Count Lymph % (Auto) [place] % (Auto) Eos % (Auto) Lymph # [place] # Eos # Seg Neutrophils % Seg Neutrophils # PT INR POC ABG pH POC ABG pCO2 POC ABG pO2 VBG pH Sodium 155 H Potassium 5.3 H Chloride 122.3 H Carbon Dioxide BUN 35 H Creatinine Glucose 113 H POC Glucose 111 H 142 H Magnesium AST ALT Alkaline Phosphatase Total Creatine Kinase NT-Pro-B Natriuret Pep Albumin Urine WBC (Auto) Crossmatch 11/14/18 11/15/18 11/15/18 19:08 00:31 06:45 WBC RBC Hgb Hct MCH MCHC RDW Plt Count Lymph % (Auto) [place] % (Auto) Eos % (Auto) Lymph # [place] # Eos # Seg Neutrophils % Seg Neutrophils # PT INR POC ABG pH POC ABG pCO2 POC ABG pO2 VBG pH Sodium Potassium Chloride Carbon Dioxide BUN Creatinine Glucose POC Glucose 116 H 125 H 131 H Magnesium AST ALT Alkaline Phosphatase Total Creatine Kinase NT-Pro-B Natriuret Pep Albumin Urine WBC (Auto) Crossmatch 11/15/18 11/15/18 11/15/18 07:13 07:13 19:03 WBC 13.2 H RBC 2.81 L Hgb 7.8 L Hct 24.5 L MCH MCHC RDW 18.2 H Plt Count 454 H Lymph % (Auto) 9.0 L [place] % (Auto) 7.5 H Eos % (Auto) Lymph # [place] # 1.0 H Eos # 0.5 H Seg Neutrophils % 78.8 H Seg Neutrophils # 10.4 H PT INR POC ABG pH POC ABG pCO2 POC ABG pO2 VBG pH Sodium 149 H Potassium 5.2 H Chloride 117.2 H Carbon Dioxide BUN 38 H Creatinine Glucose 114 H POC Glucose 141 H Magnesium AST ALT Alkaline Phosphatase Total Creatine Kinase NT-Pro-B Natriuret Pep Albumin Urine WBC (Auto) Crossmatch 11/16/18 11/16/18 11/16/18 01:15 01:15 06:45 WBC RBC Hgb Hct MCH MCHC RDW Plt Count Lymph % (Auto) [place] % (Auto) Eos % (Auto) Lymph # [place] # Eos # Seg Neutrophils % Seg Neutrophils # PT INR POC ABG pH POC ABG pCO2 POC ABG pO2 VBG pH Sodium Potassium 5.3 H Chloride Carbon Dioxide BUN Creatinine Glucose POC Glucose 129 H Magnesium 2.60 H AST ALT Alkaline Phosphatase Total Creatine Kinase NT-Pro-B Natriuret Pep Albumin Urine WBC (Auto) Crossmatch 11/16/18 11/16/18 11/17/18 13:20 18:02 00:16 WBC RBC Hgb Hct MCH MCHC RDW Plt Count Lymph % (Auto) [place] % (Auto) Eos % (Auto) Lymph # [place] # Eos # Seg Neutrophils % Seg Neutrophils # PT INR POC ABG pH POC ABG pCO2 POC ABG pO2 VBG pH Sodium Potassium Chloride Carbon Dioxide BUN Creatinine Glucose POC Glucose 130 H 127 H 120 H Magnesium AST ALT Alkaline Phosphatase Total Creatine Kinase NT-Pro-B Natriuret Pep Albumin Urine WBC (Auto) Crossmatch 11/17/18 11/17/18 11/17/18 05:48 08:02 08:02 WBC RBC Hgb 7.5 L Hct 23.5 L MCH MCHC RDW Plt Count Lymph % (Auto) [place] % (Auto) Eos % (Auto) Lymph # [place] # Eos # Seg Neutrophils % Seg Neutrophils # PT INR POC ABG pH POC ABG pCO2 POC ABG pO2 VBG pH Sodium Potassium Chloride 110.1 H Carbon Dioxide 21 L BUN 38 H Creatinine Glucose 121 H POC Glucose 130 H Magnesium AST ALT Alkaline Phosphatase Total Creatine Kinase NT-Pro-B Natriuret Pep Albumin Urine WBC (Auto) Crossmatch 11/17/18 11/17/18 11/18/18 12:17 16:48 06:00 WBC RBC Hgb Hct MCH MCHC RDW Plt Count Lymph % (Auto) [place] % (Auto) Eos % (Auto) Lymph # [place] # Eos # Seg Neutrophils % Seg Neutrophils # PT INR POC ABG pH POC ABG pCO2 POC ABG pO2 VBG pH Sodium Potassium Chloride Carbon Dioxide BUN Creatinine Glucose POC Glucose 140 H 120 H 137 H Magnesium AST ALT Alkaline Phosphatase Total Creatine Kinase NT-Pro-B Natriuret Pep Albumin Urine WBC (Auto) Crossmatch 07/07/0911/19/18 11/19/18 00:20 05:35 06:11 WBC RBC Hgb Hct MCH MCHC RDW Plt Count Lymph % (Auto) [place] % (Auto) Eos % (Auto) Lymph # [place] # Eos # Seg Neutrophils % Seg Neutrophils # PT INR POC ABG pH POC ABG pCO2 POC ABG pO2 VBG pH Sodium Potassium Chloride Carbon Dioxide BUN Creatinine Glucose POC Glucose 111 H 126 H Magnesium AST ALT Alkaline Phosphatase Total Creatine Kinase 53 L NT-Pro-B Natriuret Pep Albumin Urine WBC (Auto) Crossmatch 11/19/18 11/19/18 11/20/18 11:37 23:43 06:52 WBC RBC Hgb Hct MCH MCHC RDW Plt Count Lymph % (Auto) [place] % (Auto) Eos % (Auto) Lymph # [place] # Eos # Seg Neutrophils % Seg Neutrophils # PT INR POC ABG pH POC ABG pCO2 POC ABG pO2 VBG pH Sodium Potassium Chloride Carbon Dioxide BUN Creatinine Glucose POC Glucose 139 H 145 H 125 H Magnesium AST ALT Alkaline Phosphatase Total Creatine Kinase NT-Pro-B Natriuret Pep Albumin Urine WBC (Auto) Crossmatch 11/20/18 11/20/18 11/20/18 09:55 09:55 11:49 WBC RBC 3.04 L Hgb 8.4 L Hct 26.1 L MCH MCHC RDW 17.5 H Plt Count Lymph % (Auto) [place] % (Auto) Eos % (Auto) Lymph # [place] # Eos # Seg Neutrophils % Seg Neutrophils # PT INR POC ABG pH POC ABG pCO2 POC ABG pO2 VBG pH Sodium 149 H Potassium Chloride 114.5 H Carbon Dioxide 21 L BUN 35 H Creatinine Glucose 127 H POC Glucose 150 H Magnesium AST ALT Alkaline Phosphatase Total Creatine Kinase NT-Pro-B Natriuret Pep Albumin Urine WBC (Auto) Crossmatch 11/20/18 11/20/18 11/21/18 18:02 23:49 06:14 WBC RBC Hgb Hct MCH MCHC RDW Plt Count Lymph % (Auto) [place] % (Auto) Eos % (Auto) Lymph # [place] # Eos # Seg Neutrophils % Seg Neutrophils # PT INR POC ABG pH POC ABG pCO2 POC ABG pO2 VBG pH Sodium Potassium Chloride Carbon Dioxide BUN Creatinine Glucose POC Glucose 131 H 137 H 133 H Magnesium AST ALT Alkaline Phosphatase Total Creatine Kinase NT-Pro-B Natriuret Pep Albumin Urine WBC (Auto) Crossmatch 11/21/18 11/21/18 11/21/18 10:00 12:09 18:04 WBC RBC Hgb Hct MCH MCHC RDW Plt Count Lymph % (Auto) [place] % (Auto) Eos % (Auto) Lymph # [place] # Eos # Seg Neutrophils % Seg Neutrophils # PT INR POC ABG pH POC ABG pCO2 POC ABG pO2 VBG pH Sodium Potassium Chloride 110.6 H Carbon Dioxide BUN 31 H Creatinine Glucose 119 H POC Glucose 116 H 126 H Magnesium AST ALT Alkaline Phosphatase Total Creatine Kinase NT-Pro-B Natriuret Pep Albumin Urine WBC (Auto) Crossmatch 11/22/18 11/22/18 11/22/18 00:14 05:47 06:23 WBC RBC Hgb Hct MCH MCHC RDW Plt Count Lymph % (Auto) [place] % (Auto) Eos % (Auto) Lymph # [place] # Eos # Seg Neutrophils % Seg Neutrophils # PT INR POC ABG pH POC ABG pCO2 POC ABG pO2 VBG pH Sodium Potassium Chloride 107.6 H Carbon Dioxide BUN 32 H Creatinine 0.7 L Glucose 116 H POC Glucose 122 H 119 H Magnesium AST ALT Alkaline Phosphatase Total Creatine Kinase NT-Pro-B Natriuret Pep Albumin Urine WBC (Auto) Crossmatch 11/22/18 11/22/18 11/22/18 08:40 12:19 17:39 WBC RBC Hgb Hct MCH MCHC RDW Plt Count Lymph % (Auto) [place] % (Auto) Eos % (Auto) Lymph # [place] # Eos # Seg Neutrophils % Seg Neutrophils # PT INR POC ABG pH POC ABG pCO2 POC ABG pO2 VBG pH Sodium Potassium Chloride Carbon Dioxide BUN Creatinine Glucose POC Glucose 150 H 111 H 108 H Magnesium AST ALT Alkaline Phosphatase Total Creatine Kinase NT-Pro-B Natriuret Pep Albumin Urine WBC (Auto) Crossmatch 11/23/18 11/23/18 11/23/18 00:36 05:37 05:56 WBC RBC Hgb Hct MCH MCHC RDW Plt Count Lymph % (Auto) [place] % (Auto) Eos % (Auto) Lymph # [place] # Eos # Seg Neutrophils % Seg Neutrophils # PT INR POC ABG pH POC ABG pCO2 POC ABG pO2 VBG pH Sodium 136 L Potassium Chloride Carbon Dioxide BUN 30 H Creatinine 0.7 L Glucose 103 H POC Glucose 125 H 122 H Magnesium 2.50 H AST ALT Alkaline Phosphatase Total Creatine Kinase NT-Pro-B Natriuret Pep Albumin Urine WBC (Auto) Crossmatch 11/23/18 11/23/18 11/23/18 11:56 17:39 23:40 WBC RBC Hgb Hct MCH MCHC RDW Plt Count Lymph % (Auto) [place] % (Auto) Eos % (Auto) Lymph # [place] # Eos # Seg Neutrophils % Seg Neutrophils # PT INR POC ABG pH POC ABG pCO2 POC ABG pO2 VBG pH Sodium Potassium Chloride Carbon Dioxide BUN Creatinine Glucose POC Glucose 121 H 113 H 117 H Magnesium AST ALT Alkaline Phosphatase Total Creatine Kinase NT-Pro-B Natriuret Pep Albumin Urine WBC (Auto) Crossmatch 11/24/18 11/24/18 11/24/18 05:13 12:00 18:13 WBC RBC Hgb Hct MCH MCHC RDW Plt Count Lymph % (Auto) [place] % (Auto) Eos % (Auto) Lymph # [place] # Eos # Seg Neutrophils % Seg Neutrophils # PT INR POC ABG pH POC ABG pCO2 POC ABG pO2 VBG pH Sodium Potassium Chloride Carbon Dioxide BUN Creatinine Glucose POC Glucose 143 H 123 H 124 H Magnesium AST ALT Alkaline Phosphatase Total Creatine Kinase NT-Pro-B Natriuret Pep Albumin Urine WBC (Auto) Crossmatch 11/24/18 11/25/18 11/25/18 23:34 05:25 05:25 WBC RBC 2.48 L Hgb 6.8 L Hct 21.2 L MCH MCHC RDW 17.7 H Plt Count Lymph % (Auto) [place] % (Auto) Eos % (Auto) Lymph # [place] # Eos # Seg Neutrophils % Seg Neutrophils # PT INR POC ABG pH POC ABG pCO2 POC ABG pO2 VBG pH Sodium Potassium Chloride 108.8 H Carbon Dioxide BUN 30 H Creatinine 0.7 L Glucose 112 H POC Glucose 115 H Magnesium AST ALT Alkaline Phosphatase Total Creatine Kinase NT-Pro-B Natriuret Pep Albumin Urine WBC (Auto) Crossmatch 11/25/18 11/25/18 11/25/18 06:46 11:15 11:28 WBC RBC Hgb 7.4 L Hct 23.0 L MCH MCHC RDW Plt Count Lymph % (Auto) [place] % (Auto) Eos % (Auto) Lymph # [place] # Eos # Seg Neutrophils % Seg Neutrophils # PT INR POC ABG pH POC ABG pCO2 POC ABG pO2 VBG pH Sodium Potassium Chloride Carbon Dioxide BUN Creatinine Glucose POC Glucose 133 H 127 H Magnesium AST ALT Alkaline Phosphatase Total Creatine Kinase NT-Pro-B Natriuret Pep Albumin Urine WBC (Auto) Crossmatch 11/25/18 11/25/18 11/25/18 15:28 17:32 23:45 WBC RBC Hgb Hct MCH MCHC RDW Plt Count Lymph % (Auto) [place] % (Auto) Eos % (Auto) Lymph # [place] # Eos # Seg Neutrophils % Seg Neutrophils # PT INR POC ABG pH POC ABG pCO2 POC ABG pO2 VBG pH Sodium Potassium Chloride Carbon Dioxide BUN Creatinine Glucose POC Glucose 115 H 130 H Magnesium AST ALT Alkaline Phosphatase Total Creatine Kinase NT-Pro-B Natriuret Pep Albumin Urine WBC (Auto) Crossmatch See Detail 11/26/18 11/26/18 11/26/18 06:13 06:20 06:20 WBC RBC 2.76 L Hgb 7.7 L Hct 23.4 L MCH MCHC RDW 17.5 H Plt Count Lymph % (Auto) [place] % (Auto) Eos % (Auto) Lymph # [place] # Eos # Seg Neutrophils % Seg Neutrophils # PT INR POC ABG pH POC ABG pCO2 POC ABG pO2 VBG pH Sodium Potassium Chloride 109.9 H Carbon Dioxide BUN 30 H Creatinine 0.6 L Glucose 121 H POC Glucose 129 H Magnesium AST ALT Alkaline Phosphatase Total Creatine Kinase NT-Pro-B Natriuret Pep Albumin Urine WBC (Auto) Crossmatch 11/26/18 11/26/18 11/27/18 12:06 16:35 06:04 WBC RBC Hgb Hct MCH MCHC RDW Plt Count Lymph % (Auto) [place] % (Auto) Eos % (Auto) Lymph # [place] # Eos # Seg Neutrophils % Seg Neutrophils # PT INR POC ABG pH POC ABG pCO2 POC ABG pO2 VBG pH Sodium Potassium Chloride Carbon Dioxide BUN Creatinine Glucose POC Glucose 139 H 107 H 126 H Magnesium AST ALT Alkaline Phosphatase Total Creatine Kinase NT-Pro-B Natriuret Pep Albumin Urine WBC (Auto) Crossmatch 11/27/18 11/27/18 11/28/18 13:14 17:47 07:03 WBC RBC Hgb Hct MCH MCHC RDW Plt Count Lymph % (Auto) [place] % (Auto) Eos % (Auto) Lymph # [place] # Eos # Seg Neutrophils % Seg Neutrophils # PT INR POC ABG pH POC ABG pCO2 POC ABG pO2 VBG pH Sodium Potassium Chloride Carbon Dioxide BUN Creatinine Glucose POC Glucose 130 H 115 H 118 H Magnesium AST ALT Alkaline Phosphatase Total Creatine Kinase NT-Pro-B Natriuret Pep Albumin Urine WBC (Auto) Crossmatch 11/28/18 11/29/18 11/29/18 11:38 00:35 04:56 WBC RBC Hgb Hct MCH MCHC RDW Plt Count Lymph % (Auto) [place] % (Auto) Eos % (Auto) Lymph # [place] # Eos # Seg Neutrophils % Seg Neutrophils # PT INR POC ABG pH POC ABG pCO2 POC ABG pO2 VBG pH Sodium Potassium Chloride Carbon Dioxide BUN Creatinine Glucose POC Glucose 126 H 107 H Magnesium AST ALT Alkaline Phosphatase Total Creatine Kinase 50 L NT-Pro-B Natriuret Pep Albumin Urine WBC (Auto) Crossmatch 11/29/18 11/29/18 11/29/18 05:49 11:46 18:17 WBC RBC Hgb Hct MCH MCHC RDW Plt Count Lymph % (Auto) [place] % (Auto) Eos % (Auto) Lymph # [place] # Eos # Seg Neutrophils % Seg Neutrophils # PT INR POC ABG pH POC ABG pCO2 POC ABG pO2 VBG pH Sodium Potassium Chloride Carbon Dioxide BUN Creatinine Glucose POC Glucose 128 H 140 H 115 H Magnesium AST ALT Alkaline Phosphatase Total Creatine Kinase NT-Pro-B Natriuret Pep Albumin Urine WBC (Auto) Crossmatch 11/30/18 11/30/18 11/30/18 00:00 03:30 03:30 WBC RBC 2.97 L Hgb 8.1 L Hct 25.5 L MCH 27 L MCHC RDW 17.7 H Plt Count Lymph % (Auto) 9.2 L [place] % (Auto) 10.0 H Eos % (Auto) 4.6 H Lymph # 1.0 L [place] # 1.1 H Eos # 0.5 H Seg Neutrophils % 75.6 H Seg Neutrophils # 8.4 H PT INR POC ABG pH POC ABG pCO2 POC ABG pO2 VBG pH Sodium Potassium Chloride Carbon Dioxide BUN 31 H Creatinine 0.7 L Glucose POC Glucose 120 H Magnesium AST ALT Alkaline Phosphatase Total Creatine Kinase NT-Pro-B Natriuret Pep Albumin Urine WBC (Auto) Crossmatch 11/30/18 11/30/18 11/30/18 06:54 11:45 16:59 WBC RBC Hgb Hct MCH MCHC RDW Plt Count Lymph % (Auto) [place] % (Auto) Eos % (Auto) Lymph # [place] # Eos # Seg Neutrophils % Seg Neutrophils # PT INR POC ABG pH POC ABG pCO2 POC ABG pO2 VBG pH Sodium Potassium Chloride Carbon Dioxide BUN Creatinine Glucose POC Glucose 120 H 123 H 111 H Magnesium AST ALT Alkaline Phosphatase Total Creatine Kinase NT-Pro-B Natriuret Pep Albumin Urine WBC (Auto) Crossmatch 12/01/18 12/01/18 12/01/18 00:20 05:58 11:33 WBC RBC Hgb Hct MCH MCHC RDW Plt Count Lymph % (Auto) [place] % (Auto) Eos % (Auto) Lymph # [place] # Eos # Seg Neutrophils % Seg Neutrophils # PT INR POC ABG pH POC ABG pCO2 POC ABG pO2 VBG pH Sodium Potassium Chloride Carbon Dioxide BUN Creatinine Glucose POC Glucose 113 H 127 H 138 H Magnesium AST ALT Alkaline Phosphatase Total Creatine Kinase NT-Pro-B Natriuret Pep Albumin Urine WBC (Auto) Crossmatch 12/02/18 12/03/18 12/03/18 00:33 05:07 05:07 WBC RBC 2.93 L Hgb 8.2 L Hct 24.9 L MCH MCHC RDW 17.0 H Plt Count 470 H Lymph % (Auto) 9.3 L [place] % (Auto) 8.6 H Eos % (Auto) 5.4 H Lymph # 0.9 L [place] # Eos # 0.5 H Seg Neutrophils % 75.8 H Seg Neutrophils # PT INR POC ABG pH POC ABG pCO2 POC ABG pO2 VBG pH Sodium Potassium Chloride Carbon Dioxide BUN 30 H Creatinine 0.6 L Glucose 115 H POC Glucose 110 H Magnesium AST ALT Alkaline Phosphatase Total Creatine Kinase NT-Pro-B Natriuret Pep Albumin Urine WBC (Auto) Crossmatch 12/03/18 12/03/18 12/03/18 05:58 11:49 17:44 WBC RBC Hgb Hct MCH MCHC RDW Plt Count Lymph % (Auto) [place] % (Auto) Eos % (Auto) Lymph # [place] # Eos # Seg Neutrophils % Seg Neutrophils # PT INR POC ABG pH POC ABG pCO2 POC ABG pO2 VBG pH Sodium Potassium Chloride Carbon Dioxide BUN Creatinine Glucose POC Glucose 127 H 138 H 127 H Magnesium AST ALT Alkaline Phosphatase Total Creatine Kinase NT-Pro-B Natriuret Pep Albumin Urine WBC (Auto) Crossmatch 12/05/18 12/05/18 12/05/18 00:22 05:53 17:18 WBC RBC Hgb Hct MCH MCHC RDW Plt Count Lymph % (Auto) [place] % (Auto) Eos % (Auto) Lymph # [place] # Eos # Seg Neutrophils % Seg Neutrophils # PT INR POC ABG pH POC ABG pCO2 POC ABG pO2 VBG pH Sodium Potassium Chloride Carbon Dioxide BUN Creatinine Glucose POC Glucose 124 H 121 H 112 H Magnesium AST ALT Alkaline Phosphatase Total Creatine Kinase NT-Pro-B Natriuret Pep Albumin Urine WBC (Auto) Crossmatch 12/06/18 12/06/18 12/06/18 00:07 06:16 11:43 WBC RBC Hgb Hct MCH MCHC RDW Plt Count Lymph % (Auto) [place] % (Auto) Eos % (Auto) Lymph # [place] # Eos # Seg Neutrophils % Seg Neutrophils # PT INR POC ABG pH POC ABG pCO2 POC ABG pO2 VBG pH Sodium Potassium Chloride Carbon Dioxide BUN Creatinine Glucose POC Glucose 111 H 117 H 121 H Magnesium AST ALT Alkaline Phosphatase Total Creatine Kinase NT-Pro-B Natriuret Pep Albumin Urine WBC (Auto) Crossmatch 12/06/18 12/07/18 12/07/18 20:57 06:41 12:09 WBC RBC Hgb Hct MCH MCHC RDW Plt Count Lymph % (Auto) [place] % (Auto) Eos % (Auto) Lymph # [place] # Eos # Seg Neutrophils % Seg Neutrophils # PT INR POC ABG pH POC ABG pCO2 POC ABG pO2 VBG pH Sodium Potassium Chloride 107.2 H Carbon Dioxide BUN 27 H Creatinine 0.7 L Glucose POC Glucose 128 H 137 H Magnesium 2.50 H AST ALT Alkaline Phosphatase Total Creatine Kinase NT-Pro-B Natriuret Pep Albumin Urine WBC (Auto) Crossmatch 12/07/18 12/08/18 12/08/18 19:29 05:44 12:27 WBC RBC Hgb Hct MCH MCHC RDW Plt Count Lymph % (Auto) [place] % (Auto) Eos % (Auto) Lymph # [place] # Eos # Seg Neutrophils % Seg Neutrophils # PT INR POC ABG pH POC ABG pCO2 POC ABG pO2 VBG pH Sodium Potassium Chloride Carbon Dioxide BUN Creatinine Glucose POC Glucose 110 H 126 H 130 H Magnesium AST ALT Alkaline Phosphatase Total Creatine Kinase NT-Pro-B Natriuret Pep Albumin Urine WBC (Auto) Crossmatch 12/08/18 12/09/18 12/09/18 17:44 00:20 06:42 WBC RBC Hgb Hct MCH MCHC RDW Plt Count Lymph % (Auto) [place] % (Auto) Eos % (Auto) Lymph # [place] # Eos # Seg Neutrophils % Seg Neutrophils # PT INR POC ABG pH POC ABG pCO2 POC ABG pO2 VBG pH Sodium Potassium Chloride Carbon Dioxide BUN Creatinine Glucose POC Glucose 113 H 121 H 124 H Magnesium AST ALT Alkaline Phosphatase Total Creatine Kinase NT-Pro-B Natriuret Pep Albumin Urine WBC (Auto) Crossmatch 12/09/18 12/09/18 12/09/18 12:24 18:41 23:48 WBC RBC Hgb Hct MCH MCHC RDW Plt Count Lymph % (Auto) [place] % (Auto) Eos % (Auto) Lymph # [place] # Eos # Seg Neutrophils % Seg Neutrophils # PT INR POC ABG pH POC ABG pCO2 POC ABG pO2 VBG pH Sodium Potassium Chloride Carbon Dioxide BUN Creatinine Glucose POC Glucose 114 H 109 H 128 H Magnesium AST ALT Alkaline Phosphatase Total Creatine Kinase NT-Pro-B Natriuret Pep Albumin Urine WBC (Auto) Crossmatch 12/10/18 12/10/18 12/11/18 07:07 11:28 00:24 WBC RBC Hgb Hct MCH MCHC RDW Plt Count Lymph % (Auto) [place] % (Auto) Eos % (Auto) Lymph # [place] # Eos # Seg Neutrophils % Seg Neutrophils # PT INR POC ABG pH POC ABG pCO2 POC ABG pO2 VBG pH Sodium Potassium Chloride Carbon Dioxide BUN Creatinine Glucose POC Glucose 111 H 110 H 112 H Magnesium AST ALT Alkaline Phosphatase Total Creatine Kinase NT-Pro-B Natriuret Pep Albumin Urine WBC (Auto) Crossmatch 12/11/18 12/11/18 12/11/18 06:44 11:53 18:17 WBC RBC Hgb Hct MCH MCHC RDW Plt Count Lymph % (Auto) [place] % (Auto) Eos % (Auto) Lymph # [place] # Eos # Seg Neutrophils % Seg Neutrophils # PT INR POC ABG pH POC ABG pCO2 POC ABG pO2 VBG pH Sodium Potassium Chloride Carbon Dioxide BUN Creatinine Glucose POC Glucose 111 H 132 H 133 H Magnesium AST ALT Alkaline Phosphatase Total Creatine Kinase NT-Pro-B Natriuret Pep Albumin Urine WBC (Auto) Crossmatch 12/11/18 12/12/1819 23:58 00:05 06:11 WBC RBC 2.85 L Hgb 7.8 L Hct 24.4 L MCH 27 L MCHC RDW 17.4 H Plt Count 459 H Lymph % (Auto) [place] % (Auto) 11.2 H Eos % (Auto) 5.4 H Lymph # [place] # 1.1 H Eos # 0.5 H Seg Neutrophils % Seg Neutrophils # PT INR POC ABG pH POC ABG pCO2 POC ABG pO2 VBG pH Sodium Potassium Chloride Carbon Dioxide BUN Creatinine Glucose POC Glucose 126 H 144 H Magnesium AST ALT Alkaline Phosphatase Total Creatine Kinase NT-Pro-B Natriuret Pep Albumin Urine WBC (Auto) Crossmatch 12/12/18 11:42 WBC RBC Hgb Hct MCH MCHC RDW Plt Count Lymph % (Auto) [place] % (Auto) Eos % (Auto) Lymph # [place] # Eos # Seg Neutrophils % Seg Neutrophils # PT INR POC ABG pH POC ABG pCO2 POC ABG pO2 VBG pH Sodium Potassium Chloride Carbon Dioxide BUN Creatinine Glucose POC Glucose 106 H Magnesium AST ALT Alkaline Phosphatase Total Creatine Kinase NT-Pro-B Natriuret Pep Albumin Urine WBC (Auto) Crossmatch Allied health notes reviewed: nursing
--- NOTE | 2018-12-12 17:15 | Progress Note ---
Assessment and Plan 67 YO Male Assisted Facility Resident as [facility] with HTN, CVA, Obstructive Uropathy, Diastolic CHF, Contracture, Sacral Decubitus Ulcers, NH, DM, OA, Seizure Disorder, COPD, Dementia, BPH presents to ED for evaluation. Pt is stuporous and unable to provide history. Pt history taken from ED Staff, EMS, and SNF Staff. As per staff, the patient was found to have respiratory distress upon evaluation this morning. Pt found to have pulse oximetry in the 80's. EMS notified and patient subsequently transported to [facility] for further care and evaluation. Pt seen and evaluated in ED and found to have UTI, Sepsis, Encephalopathy as well as Acute Hypoxemic Respiratory Failure. Pt initiated on NIPPV in ED with improvement in symptoms. Pt admitted to IMCU and initiated on Sepsis protocol. Prior admission on 10/01/18 reviewed. 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 He needs to be on contact isolation. This cannot be cured with antibiotics. recommend palliative care/comfort care or hospice, family are not interested in that option, continue daptomycin , at discharge will do daptomycin 400 mg IV q day for 6 weeks until 12/16/2018 sacral pressure ulcer -infected. POA WOUND CARE CONSULT. CONTINUE ABX. Debridement done by Dr Man Amputation recommended and the daughter refused Respiratory failure Supplemental oxygen, nebulizer therapy, mgt per pulmonology Anemia of chronic disease Transfused one unit PRBC hemoglobin is stable Seizure Continue current therapy, seizure precautions. BPH Continue Chaudhary catherter Dementia supportive care DVT prophylaxis Prophylactic lovenox POOR PROGNOSIS Disposition; pending SNF placement. . Needs to be in Hospice Subjective Date of service: 12/12/18 Principal diagnosis: Severe Sepsis; Ac. Hypoxemic Resp failure; Anemia; Seizure; UTI; BPH Interval history: Same condition Objective - Constitutional Vitals: Vital Signs - 12hr 12/12/18 12/12/18 12/12/18 07:27 07:41 08:01 Temperature 98.9 F Pulse Rate 85 Pulse Rate [ 93 H Anterior Bilateral Throughout] Respiratory 20 Rate Respiratory 17 Rate [Anterior Bilateral Throughout] Blood Pressure 114/68 O2 Sat by Pulse 95 94 Oximetry General appearance: Present: no acute distress, well-nourished - EENT Eyes: PERRL, EOM intact ENT: hearing intact, clear oral mucosa Ears: bilateral: normal - Neck Neck: supple, normal ROM - Respiratory Respiratory effort: normal Respiratory: bilateral: CTA - Breasts Breasts: normal - Cardiovascular Heart rate: 78 Rhythm: regular Heart Sounds: Present: S1 & S2. Absent: gallop, rub Extremities: pulses intact, No edema, normal color, Full ROM Extremity abnormal: other (Sacral decubitus ulcer) - Gastrointestinal General gastrointestinal: Present: soft, non-tender, non-distended, normal bowel sounds - Genitourinary Male genitourinary: normal - Integumentary Integumentary: clear, warm, dry - Musculoskeletal Musculoskeletal: 1, strength equal bilaterally - Neurologic Neurologic: moves all extremities - Psychiatric Psychiatric: memory intact, appropriate mood/affect, intact judgment & insight - Labs CBC & Chem 7: 12/12/18 00:05 12/06/18 20:57 Labs: Abnormal lab results 12/11/18 12/11/18 12/12/18 Range/Units 18:17 23:58 00:05 RBC 2.85 L (3.65-5.03) M/mm3 Hgb 7.8 L (11.8-15.2) gm/dl Hct 24.4 L (35.5-45.6) % MCH 27 L (28-32) pg RDW 17.4 H (13.2-15.2) % Plt Count 459 H (140-440) K/mm3 [place] % (Auto) 11.2 H (0.0-7.3) % Eos % (Auto) 5.4 H (0.0-4.3) % [place] # 1.1 H (0.0-0.8) K/mm3 Eos # 0.5 H (0.0-0.4) K/mm3 POC Glucose 133 H 126 H (70-105) 12/12/18 12/12/18 Range/Units 06:11 11:42 RBC (3.65-5.03) M/mm3 Hgb (11.8-15.2) gm/dl Hct (35.5-45.6) % MCH (28-32) pg RDW (13.2-15.2) % Plt Count (140-440) K/mm3 [place] % (Auto) (0.0-7.3) % Eos % (Auto) (0.0-4.3) % [place] # (0.0-0.8) K/mm3 Eos # (0.0-0.4) K/mm3 POC Glucose 144 H 106 H (70-105)
[2018-12-13] MEDS: KEPPRA FEEDTUBE SCH ×3 (00:16→21:30)
[2018-12-13] MEDS: APRESOLINE PO SCH ×3 (00:18→21:42)
[2018-12-13] MEDS: VITAMIN C FEEDTUBE SCH ×3 (00:18→21:46)
[2018-12-13] MEDS: SODIUM CHLORIDE FLUSH SYRINGE 10 ML IV SCH ×3 (08:24→21:30)
[2018-12-13] MEDS: COREG PO SCH ×3 (08:24→21:32)
--- NOTE | 2018-12-13 09:33 | Progress Note ---
Assessment and Plan (1) Sepsis- severe Current Visit: Yes Status: Acute Plan to address problem: Antibiotics per ID (2) Respiratory failure Current Visit: Yes Status: Acute Qualifiers: Chronicity: acute Respiratory failure complication: hypoxia Qualified Code(s): J96.01 - Acute respiratory failure with hypoxia Plan to address problem: Supplemental oxygen wean fro O2 sats >90% Bronchodilators per protocol (3) Seizure Current Visit: Yes Status: Acute Plan to address problem: Continue current therapy, seizure precautions. (4) UTI (urinary tract infection) Current Visit: Yes Status: Acute Qualifiers: Encounter type: initial encounter Plan to address problem: IV antibiotic therapy (5) Dementia Current Visit: Yes Status: Acute Qualifiers: Dementia behavioral disturbance: without behavioral disturbance Plan to address problem: Per primary (6) sacral pressure ulcer -infected. POA CONTINUE ABX and wound care (7)DVT prophylaxis Current Visit: Yes Status: Acute Plan to address problem: SCD to BLE while in bed, Heamturia s/p 3 way bright catheter. POOR PROGNOSIS Discharge planning Subjective Date of service: 12/13/18 Principal diagnosis: Severe Sepsis; Ac. Hypoxemic Resp failure; Anemia; Seizure; UTI; BPH Interval history: Patient is seen today for: Severe Sepsis; Acute Hypoxemic Respiratory failure; Anemia of chronic disease; Seizure; UTI (urinary tract infection); BPH; Dementia; sacral pressure ulcer -infected. POA Seen and examined at bedside; 24-hour events reviewed; nursing and respiratory care staff consulted; no adverse overnight events reported to me; resting peacefully in bed; No N/V/F/C; s/p debridment of multiple pressure ulcers; Vitals, labs, medications, chart reviewed. On 3L NC, comfortable, Right chest wall tunnelled PICC line, had three way bright catheter placed yesterday for hematuria, chen drip started Objective Vital Signs - 12hr 12/13/18 12/13/18 01:25 08:04 Temperature 99.0 F 98.1 F Pulse Rate 83 86 Respiratory 26 H 18 Rate Blood Pressure 108/61 123/59 O2 Sat by Pulse 95 96 Oximetry Constitutional: no acute distress, alert Eyes: non-icteric ENT: oropharynx moist Neck: no lymphadenopathy, no JVD, other (mild stiffness / contracture) Effort: normal Ascultation: Bilateral: diminished breath sounds, rhonchi Percussion: Bilateral: not dull Cardiovascular: regular rate and rhythm, other (S1,S2, no murmurs, gallops or rubs) Gastrointestinal: normoactive bowel sounds, soft, non-tender, non-distended Integumentary: rash Extremities: no cyanosis, no edema, pulses normal, other (Patient has pressure ulcer at multiple areas, including sacral area.) Neurologic: pupils equal and round, other (+ contractures) Psychiatric: mood appropriate, other (falt affect) CBC and BMP: 12/12/18 00:05 12/06/18 20:57 ABG, PT/INR, D-dimer: ABG POC ABG pH 7.494 (7.35-7.45) H 11/01/18 15:27 POC ABG pCO2 34.5 (35-45) L 11/01/18 15:27 POC ABG pO2 139 (80-105) H 11/01/18 15:27 POC ABG HCO3 26.5 (22-26 mml/L) 11/01/18 15:27 POC ABG Total CO2 28 (23-27mmol/L) 11/01/18 15:27 POC ABG O2 Sat 99 11/01/18 15:27 PT/INR, D-dimer PT 16.3 Sec. (12.2-14.9) H 11/01/18 14:50 INR 1.35 (0.87-1.13) H 11/01/18 14:50 Abnormal lab findings: Abnormal Labs 11/01/18 11/01/18 11/01/18 14:50 14:50 14:50 WBC 15.3 H RBC 2.76 L Hgb 7.9 L Hct 23.5 L MCH MCHC RDW 18.3 H Plt Count 567 H Lymph % (Auto) 6.5 L [place] % (Auto) 8.5 H Eos % (Auto) Lymph # 1.0 L [place] # 1.3 H Eos # Seg Neutrophils % 83.4 H Seg Neutrophils # 12.7 H PT 16.3 H INR 1.35 H POC ABG pH POC ABG pCO2 POC ABG pO2 VBG pH Sodium Potassium Chloride Carbon Dioxide BUN 49 H Creatinine Glucose 132 H POC Glucose Magnesium AST 90 H ALT 77 H Alkaline Phosphatase 350 H Total Creatine Kinase NT-Pro-B Natriuret Pep Albumin 1.6 L Urine WBC (Auto) Crossmatch 11/01/18 11/01/18 11/01/18 14:50 14:50 15:27 WBC RBC Hgb Hct MCH MCHC RDW Plt Count Lymph % (Auto) [place] % (Auto) Eos % (Auto) Lymph # [place] # Eos # Seg Neutrophils % Seg Neutrophils # PT INR POC ABG pH 7.494 H POC ABG pCO2 34.5 L POC ABG pO2 139 H VBG pH 7.499 H Sodium Potassium Chloride Carbon Dioxide BUN Creatinine Glucose POC Glucose Magnesium AST ALT Alkaline Phosphatase Total Creatine Kinase NT-Pro-B Natriuret Pep 6776 H Albumin Urine WBC (Auto) Crossmatch 11/01/18 11/03/18 11/03/18 15:57 03:41 03:41 WBC 12.8 H RBC 2.55 L Hgb 6.9 L Hct 22.2 L MCH 27 L MCHC 31 L RDW 17.9 H Plt Count 519 H Lymph % (Auto) [place] % (Auto) Eos % (Auto) Lymph # [place] # Eos # Seg Neutrophils % Seg Neutrophils # PT INR POC ABG pH POC ABG pCO2 POC ABG pO2 VBG pH Sodium 147 H Potassium Chloride 110.3 H Carbon Dioxide BUN 55 H Creatinine Glucose POC Glucose Magnesium AST ALT Alkaline Phosphatase Total Creatine Kinase NT-Pro-B Natriuret Pep Albumin Urine WBC (Auto) > 182.0 H Crossmatch 11/03/18 11/04/18 11/04/18 12:51 05:12 05:12 WBC 11.5 H RBC 2.94 L Hgb 8.3 L Hct 25.3 L MCH MCHC RDW 17.3 H Plt Count 514 H Lymph % (Auto) [place] % (Auto) Eos % (Auto) Lymph # [place] # Eos # Seg Neutrophils % Seg Neutrophils # PT INR POC ABG pH POC ABG pCO2 POC ABG pO2 VBG pH Sodium 147 H Potassium Chloride 112.4 H Carbon Dioxide BUN 52 H Creatinine Glucose POC Glucose Magnesium AST ALT Alkaline Phosphatase Total Creatine Kinase NT-Pro-B Natriuret Pep Albumin Urine WBC (Auto) Crossmatch See Detail 11/05/18 11/05/18 11/06/18 04:50 04:50 05:42 WBC RBC 3.03 L 2.80 L Hgb 8.7 L 7.9 L Hct 26.6 L 24.7 L MCH MCHC RDW 17.1 H 17.0 H Plt Count 502 H 478 H Lymph % (Auto) 10.4 L [place] % (Auto) 8.6 H Eos % (Auto) 4.7 H Lymph # 1.0 L [place] # Eos # 0.5 H Seg Neutrophils % 75.6 H Seg Neutrophils # PT INR POC ABG pH POC ABG pCO2 POC ABG pO2 VBG pH Sodium 149 H Potassium Chloride 114.4 H Carbon Dioxide 21 L BUN 50 H Creatinine Glucose 108 H POC Glucose Magnesium AST ALT Alkaline Phosphatase Total Creatine Kinase NT-Pro-B Natriuret Pep Albumin Urine WBC (Auto) Crossmatch 11/06/18 11/11/18 11/12/18 05:42 18:54 00:22 WBC RBC Hgb Hct MCH MCHC RDW Plt Count Lymph % (Auto) [place] % (Auto) Eos % (Auto) Lymph # [place] # Eos # Seg Neutrophils % Seg Neutrophils # PT INR POC ABG pH POC ABG pCO2 POC ABG pO2 VBG pH Sodium 149 H Potassium Chloride 113.4 H Carbon Dioxide BUN 50 H Creatinine Glucose 121 H POC Glucose 114 H 123 H Magnesium AST ALT Alkaline Phosphatase Total Creatine Kinase NT-Pro-B Natriuret Pep Albumin Urine WBC (Auto) Crossmatch 11/12/18 11/12/18 11/13/18 06:49 11:35 06:34 WBC RBC Hgb Hct MCH MCHC RDW Plt Count Lymph % (Auto) [place] % (Auto) Eos % (Auto) Lymph # [place] # Eos # Seg Neutrophils % Seg Neutrophils # PT INR POC ABG pH POC ABG pCO2 POC ABG pO2 VBG pH Sodium Potassium Chloride Carbon Dioxide BUN Creatinine Glucose POC Glucose 129 H 123 H 128 H Magnesium AST ALT Alkaline Phosphatase Total Creatine Kinase NT-Pro-B Natriuret Pep Albumin Urine WBC (Auto) Crossmatch 11/13/18 11/13/18 11/13/18 09:26 09:26 15:13 WBC RBC 3.08 L Hgb 8.6 L Hct 27.3 L MCH MCHC 31 L RDW 18.3 H Plt Count 504 H Lymph % (Auto) 11.7 L [place] % (Auto) 7.5 H Eos % (Auto) 7.0 H Lymph # [place] # Eos # 0.7 H Seg Neutrophils % 72.9 H Seg Neutrophils # PT INR POC ABG pH POC ABG pCO2 POC ABG pO2 VBG pH Sodium 153 H Potassium 6.3 H* 5.8 H Chloride 122.3 H Carbon Dioxide 21 L BUN 38 H Creatinine Glucose 112 H POC Glucose Magnesium AST ALT Alkaline Phosphatase Total Creatine Kinase NT-Pro-B Natriuret Pep Albumin Urine WBC (Auto) Crossmatch 11/13/18 11/13/18 11/14/18 22:10 23:45 13:17 WBC RBC Hgb Hct MCH MCHC RDW Plt Count Lymph % (Auto) [place] % (Auto) Eos % (Auto) Lymph # [place] # Eos # Seg Neutrophils % Seg Neutrophils # PT INR POC ABG pH POC ABG pCO2 POC ABG pO2 VBG pH Sodium 155 H Potassium 5.3 H Chloride 122.3 H Carbon Dioxide BUN 35 H Creatinine Glucose 113 H POC Glucose 111 H 142 H Magnesium AST ALT Alkaline Phosphatase Total Creatine Kinase NT-Pro-B Natriuret Pep Albumin Urine WBC (Auto) Crossmatch 11/14/18 11/15/18 11/15/18 19:08 00:31 06:45 WBC RBC Hgb Hct MCH MCHC RDW Plt Count Lymph % (Auto) [place] % (Auto) Eos % (Auto) Lymph # [place] # Eos # Seg Neutrophils % Seg Neutrophils # PT INR POC ABG pH POC ABG pCO2 POC ABG pO2 VBG pH Sodium Potassium Chloride Carbon Dioxide BUN Creatinine Glucose POC Glucose 116 H 125 H 131 H Magnesium AST ALT Alkaline Phosphatase Total Creatine Kinase NT-Pro-B Natriuret Pep Albumin Urine WBC (Auto) Crossmatch 11/15/18 11/15/18 11/15/18 07:13 07:13 19:03 WBC 13.2 H RBC 2.81 L Hgb 7.8 L Hct 24.5 L MCH MCHC RDW 18.2 H Plt Count 454 H Lymph % (Auto) 9.0 L [place] % (Auto) 7.5 H Eos % (Auto) Lymph # [place] # 1.0 H Eos # 0.5 H Seg Neutrophils % 78.8 H Seg Neutrophils # 10.4 H PT INR POC ABG pH POC ABG pCO2 POC ABG pO2 VBG pH Sodium 149 H Potassium 5.2 H Chloride 117.2 H Carbon Dioxide BUN 38 H Creatinine Glucose 114 H POC Glucose 141 H Magnesium AST ALT Alkaline Phosphatase Total Creatine Kinase NT-Pro-B Natriuret Pep Albumin Urine WBC (Auto) Crossmatch 11/16/18 11/16/18 11/16/18 01:15 01:15 06:45 WBC RBC Hgb Hct MCH MCHC RDW Plt Count Lymph % (Auto) [place] % (Auto) Eos % (Auto) Lymph # [place] # Eos # Seg Neutrophils % Seg Neutrophils # PT INR POC ABG pH POC ABG pCO2 POC ABG pO2 VBG pH Sodium Potassium 5.3 H Chloride Carbon Dioxide BUN Creatinine Glucose POC Glucose 129 H Magnesium 2.60 H AST ALT Alkaline Phosphatase Total Creatine Kinase NT-Pro-B Natriuret Pep Albumin Urine WBC (Auto) Crossmatch 11/16/18 11/16/18 11/17/18 13:20 18:02 00:16 WBC RBC Hgb Hct MCH MCHC RDW Plt Count Lymph % (Auto) [place] % (Auto) Eos % (Auto) Lymph # [place] # Eos # Seg Neutrophils % Seg Neutrophils # PT INR POC ABG pH POC ABG pCO2 POC ABG pO2 VBG pH Sodium Potassium Chloride Carbon Dioxide BUN Creatinine Glucose POC Glucose 130 H 127 H 120 H Magnesium AST ALT Alkaline Phosphatase Total Creatine Kinase NT-Pro-B Natriuret Pep Albumin Urine WBC (Auto) Crossmatch 11/17/18 11/17/18 11/17/18 05:48 08:02 08:02 WBC RBC Hgb 7.5 L Hct 23.5 L MCH MCHC RDW Plt Count Lymph % (Auto) [place] % (Auto) Eos % (Auto) Lymph # [place] # Eos # Seg Neutrophils % Seg Neutrophils # PT INR POC ABG pH POC ABG pCO2 POC ABG pO2 VBG pH Sodium Potassium Chloride 110.1 H Carbon Dioxide 21 L BUN 38 H Creatinine Glucose 121 H POC Glucose 130 H Magnesium AST ALT Alkaline Phosphatase Total Creatine Kinase NT-Pro-B Natriuret Pep Albumin Urine WBC (Auto) Crossmatch 11/17/18 11/17/18 11/18/18 12:17 16:48 06:00 WBC RBC Hgb Hct MCH MCHC RDW Plt Count Lymph % (Auto) [place] % (Auto) Eos % (Auto) Lymph # [place] # Eos # Seg Neutrophils % Seg Neutrophils # PT INR POC ABG pH POC ABG pCO2 POC ABG pO2 VBG pH Sodium Potassium Chloride Carbon Dioxide BUN Creatinine Glucose POC Glucose 140 H 120 H 137 H Magnesium AST ALT Alkaline Phosphatase Total Creatine Kinase NT-Pro-B Natriuret Pep Albumin Urine WBC (Auto) Crossmatch 11/19/18 11/19/18 11/19/18 00:20 05:35 06:11 WBC RBC Hgb Hct MCH MCHC RDW Plt Count Lymph % (Auto) [place] % (Auto) Eos % (Auto) Lymph # [place] # Eos # Seg Neutrophils % Seg Neutrophils # PT INR POC ABG pH POC ABG pCO2 POC ABG pO2 VBG pH Sodium Potassium Chloride Carbon Dioxide BUN Creatinine Glucose POC Glucose 111 H 126 H Magnesium AST ALT Alkaline Phosphatase Total Creatine Kinase 53 L NT-Pro-B Natriuret Pep Albumin Urine WBC (Auto) Crossmatch 11/19/18 11/19/18 11/20/18 11:37 23:43 06:52 WBC RBC Hgb Hct MCH MCHC RDW Plt Count Lymph % (Auto) [place] % (Auto) Eos % (Auto) Lymph # [place] # Eos # Seg Neutrophils % Seg Neutrophils # PT INR POC ABG pH POC ABG pCO2 POC ABG pO2 VBG pH Sodium Potassium Chloride Carbon Dioxide BUN Creatinine Glucose POC Glucose 139 H 145 H 125 H Magnesium AST ALT Alkaline Phosphatase Total Creatine Kinase NT-Pro-B Natriuret Pep Albumin Urine WBC (Auto) Crossmatch 11/20/18 11/20/18 11/20/18 09:55 09:55 11:49 WBC RBC 3.04 L Hgb 8.4 L Hct 26.1 L MCH MCHC RDW 17.5 H Plt Count Lymph % (Auto) [place] % (Auto) Eos % (Auto) Lymph # [place] # Eos # Seg Neutrophils % Seg Neutrophils # PT INR POC ABG pH POC ABG pCO2 POC ABG pO2 VBG pH Sodium 149 H Potassium Chloride 114.5 H Carbon Dioxide 21 L BUN 35 H Creatinine Glucose 127 H POC Glucose 150 H Magnesium AST ALT Alkaline Phosphatase Total Creatine Kinase NT-Pro-B Natriuret Pep Albumin Urine WBC (Auto) Crossmatch 11/20/18 11/20/18 11/21/18 18:02 23:49 06:14 WBC RBC Hgb Hct MCH MCHC RDW Plt Count Lymph % (Auto) [place] % (Auto) Eos % (Auto) Lymph # [place] # Eos # Seg Neutrophils % Seg Neutrophils # PT INR POC ABG pH POC ABG pCO2 POC ABG pO2 VBG pH Sodium Potassium Chloride Carbon Dioxide BUN Creatinine Glucose POC Glucose 131 H 137 H 133 H Magnesium AST ALT Alkaline Phosphatase Total Creatine Kinase NT-Pro-B Natriuret Pep Albumin Urine WBC (Auto) Crossmatch 11/21/18 11/21/18 11/21/18 10:00 12:09 18:04 WBC RBC Hgb Hct MCH MCHC RDW Plt Count Lymph % (Auto) [place] % (Auto) Eos % (Auto) Lymph # [place] # Eos # Seg Neutrophils % Seg Neutrophils # PT INR POC ABG pH POC ABG pCO2 POC ABG pO2 VBG pH Sodium Potassium Chloride 110.6 H Carbon Dioxide BUN 31 H Creatinine Glucose 119 H POC Glucose 116 H 126 H Magnesium AST ALT Alkaline Phosphatase Total Creatine Kinase NT-Pro-B Natriuret Pep Albumin Urine WBC (Auto) Crossmatch 11/22/18 11/22/18 11/22/18 00:14 05:47 06:23 WBC RBC Hgb Hct MCH MCHC RDW Plt Count Lymph % (Auto) [place] % (Auto) Eos % (Auto) Lymph # [place] # Eos # Seg Neutrophils % Seg Neutrophils # PT INR POC ABG pH POC ABG pCO2 POC ABG pO2 VBG pH Sodium Potassium Chloride 107.6 H Carbon Dioxide BUN 32 H Creatinine 0.7 L Glucose 116 H POC Glucose 122 H 119 H Magnesium AST ALT Alkaline Phosphatase Total Creatine Kinase NT-Pro-B Natriuret Pep Albumin Urine WBC (Auto) Crossmatch 11/22/18 11/22/18 11/22/18 08:40 12:19 17:39 WBC RBC Hgb Hct MCH MCHC RDW Plt Count Lymph % (Auto) [place] % (Auto) Eos % (Auto) Lymph # [place] # Eos # Seg Neutrophils % Seg Neutrophils # PT INR POC ABG pH POC ABG pCO2 POC ABG pO2 VBG pH Sodium Potassium Chloride Carbon Dioxide BUN Creatinine Glucose POC Glucose 150 H 111 H 108 H Magnesium AST ALT Alkaline Phosphatase Total Creatine Kinase NT-Pro-B Natriuret Pep Albumin Urine WBC (Auto) Crossmatch 11/23/18 11/23/18 11/23/18 00:36 05:37 05:56 WBC RBC Hgb Hct MCH MCHC RDW Plt Count Lymph % (Auto) [place] % (Auto) Eos % (Auto) Lymph # [place] # Eos # Seg Neutrophils % Seg Neutrophils # PT INR POC ABG pH POC ABG pCO2 POC ABG pO2 VBG pH Sodium 136 L Potassium Chloride Carbon Dioxide BUN 30 H Creatinine 0.7 L Glucose 103 H POC Glucose 125 H 122 H Magnesium 2.50 H AST ALT Alkaline Phosphatase Total Creatine Kinase NT-Pro-B Natriuret Pep Albumin Urine WBC (Auto) Crossmatch 11/23/18 11/23/18 11/23/18 11:56 17:39 23:40 WBC RBC Hgb Hct MCH MCHC RDW Plt Count Lymph % (Auto) [place] % (Auto) Eos % (Auto) Lymph # [place] # Eos # Seg Neutrophils % Seg Neutrophils # PT INR POC ABG pH POC ABG pCO2 POC ABG pO2 VBG pH Sodium Potassium Chloride Carbon Dioxide BUN Creatinine Glucose POC Glucose 121 H 113 H 117 H Magnesium AST ALT Alkaline Phosphatase Total Creatine Kinase NT-Pro-B Natriuret Pep Albumin Urine WBC (Auto) Crossmatch 11/24/18 11/24/18 11/24/18 05:13 12:00 18:13 WBC RBC Hgb Hct MCH MCHC RDW Plt Count Lymph % (Auto) [place] % (Auto) Eos % (Auto) Lymph # [place] # Eos # Seg Neutrophils % Seg Neutrophils # PT INR POC ABG pH POC ABG pCO2 POC ABG pO2 VBG pH Sodium Potassium Chloride Carbon Dioxide BUN Creatinine Glucose POC Glucose 143 H 123 H 124 H Magnesium AST ALT Alkaline Phosphatase Total Creatine Kinase NT-Pro-B Natriuret Pep Albumin Urine WBC (Auto) Crossmatch 11/24/18 11/25/18 11/25/18 23:34 05:25 05:25 WBC RBC 2.48 L Hgb 6.8 L Hct 21.2 L MCH MCHC RDW 17.7 H Plt Count Lymph % (Auto) [place] % (Auto) Eos % (Auto) Lymph # [place] # Eos # Seg Neutrophils % Seg Neutrophils # PT INR POC ABG pH POC ABG pCO2 POC ABG pO2 VBG pH Sodium Potassium Chloride 108.8 H Carbon Dioxide BUN 30 H Creatinine 0.7 L Glucose 112 H POC Glucose 115 H Magnesium AST ALT Alkaline Phosphatase Total Creatine Kinase NT-Pro-B Natriuret Pep Albumin Urine WBC (Auto) Crossmatch 11/25/18 11/25/18 11/25/18 06:46 11:15 11:28 WBC RBC Hgb 7.4 L Hct 23.0 L MCH MCHC RDW Plt Count Lymph % (Auto) [place] % (Auto) Eos % (Auto) Lymph # [place] # Eos # Seg Neutrophils % Seg Neutrophils # PT INR POC ABG pH POC ABG pCO2 POC ABG pO2 VBG pH Sodium Potassium Chloride Carbon Dioxide BUN Creatinine Glucose POC Glucose 133 H 127 H Magnesium AST ALT Alkaline Phosphatase Total Creatine Kinase NT-Pro-B Natriuret Pep Albumin Urine WBC (Auto) Crossmatch 11/25/18 11/25/18 11/25/18 15:28 17:32 23:45 WBC RBC Hgb Hct MCH MCHC RDW Plt Count Lymph % (Auto) [place] % (Auto) Eos % (Auto) Lymph # [place] # Eos # Seg Neutrophils % Seg Neutrophils # PT INR POC ABG pH POC ABG pCO2 POC ABG pO2 VBG pH Sodium Potassium Chloride Carbon Dioxide BUN Creatinine Glucose POC Glucose 115 H 130 H Magnesium AST ALT Alkaline Phosphatase Total Creatine Kinase NT-Pro-B Natriuret Pep Albumin Urine WBC (Auto) Crossmatch See Detail 11/26/18 11/26/18 11/26/18 06:13 06:20 06:20 WBC RBC 2.76 L Hgb 7.7 L Hct 23.4 L MCH MCHC RDW 17.5 H Plt Count Lymph % (Auto) [place] % (Auto) Eos % (Auto) Lymph # [place] # Eos # Seg Neutrophils % Seg Neutrophils # PT INR POC ABG pH POC ABG pCO2 POC ABG pO2 VBG pH Sodium Potassium Chloride 109.9 H Carbon Dioxide BUN 30 H Creatinine 0.6 L Glucose 121 H POC Glucose 129 H Magnesium AST ALT Alkaline Phosphatase Total Creatine Kinase NT-Pro-B Natriuret Pep Albumin Urine WBC (Auto) Crossmatch 11/26/18 11/26/18 11/27/18 12:06 16:35 06:04 WBC RBC Hgb Hct MCH MCHC RDW Plt Count Lymph % (Auto) [place] % (Auto) Eos % (Auto) Lymph # [place] # Eos # Seg Neutrophils % Seg Neutrophils # PT INR POC ABG pH POC ABG pCO2 POC ABG pO2 VBG pH Sodium Potassium Chloride Carbon Dioxide BUN Creatinine Glucose POC Glucose 139 H 107 H 126 H Magnesium AST ALT Alkaline Phosphatase Total Creatine Kinase NT-Pro-B Natriuret Pep Albumin Urine WBC (Auto) Crossmatch 11/27/18 11/27/18 11/28/18 13:14 17:47 07:03 WBC RBC Hgb Hct MCH MCHC RDW Plt Count Lymph % (Auto) [place] % (Auto) Eos % (Auto) Lymph # [place] # Eos # Seg Neutrophils % Seg Neutrophils # PT INR POC ABG pH POC ABG pCO2 POC ABG pO2 VBG pH Sodium Potassium Chloride Carbon Dioxide BUN Creatinine Glucose POC Glucose 130 H 115 H 118 H Magnesium AST ALT Alkaline Phosphatase Total Creatine Kinase NT-Pro-B Natriuret Pep Albumin Urine WBC (Auto) Crossmatch 11/28/18 11/29/18 11/29/18 11:38 00:35 04:56 WBC RBC Hgb Hct MCH MCHC RDW Plt Count Lymph % (Auto) [place] % (Auto) Eos % (Auto) Lymph # [place] # Eos # Seg Neutrophils % Seg Neutrophils # PT INR POC ABG pH POC ABG pCO2 POC ABG pO2 VBG pH Sodium Potassium Chloride Carbon Dioxide BUN Creatinine Glucose POC Glucose 126 H 107 H Magnesium AST ALT Alkaline Phosphatase Total Creatine Kinase 50 L NT-Pro-B Natriuret Pep Albumin Urine WBC (Auto) Crossmatch 11/29/18 11/29/18 11/29/18 05:49 11:46 18:17 WBC RBC Hgb Hct MCH MCHC RDW Plt Count Lymph % (Auto) [place] % (Auto) Eos % (Auto) Lymph # [place] # Eos # Seg Neutrophils % Seg Neutrophils # PT INR POC ABG pH POC ABG pCO2 POC ABG pO2 VBG pH Sodium Potassium Chloride Carbon Dioxide BUN Creatinine Glucose POC Glucose 128 H 140 H 115 H Magnesium AST ALT Alkaline Phosphatase Total Creatine Kinase NT-Pro-B Natriuret Pep Albumin Urine WBC (Auto) Crossmatch 11/30/18 11/30/18 11/30/18 00:00 03:30 03:30 WBC RBC 2.97 L Hgb 8.1 L Hct 25.5 L MCH 27 L MCHC RDW 17.7 H Plt Count Lymph % (Auto) 9.2 L [place] % (Auto) 10.0 H Eos % (Auto) 4.6 H Lymph # 1.0 L [place] # 1.1 H Eos # 0.5 H Seg Neutrophils % 75.6 H Seg Neutrophils # 8.4 H PT INR POC ABG pH POC ABG pCO2 POC ABG pO2 VBG pH Sodium Potassium Chloride Carbon Dioxide BUN 31 H Creatinine 0.7 L Glucose POC Glucose 120 H Magnesium AST ALT Alkaline Phosphatase Total Creatine Kinase NT-Pro-B Natriuret Pep Albumin Urine WBC (Auto) Crossmatch 11/30/18 11/30/18 11/30/18 06:54 11:45 16:59 WBC RBC Hgb Hct MCH MCHC RDW Plt Count Lymph % (Auto) [place] % (Auto) Eos % (Auto) Lymph # [place] # Eos # Seg Neutrophils % Seg Neutrophils # PT INR POC ABG pH POC ABG pCO2 POC ABG pO2 VBG pH Sodium Potassium Chloride Carbon Dioxide BUN Creatinine Glucose POC Glucose 120 H 123 H 111 H Magnesium AST ALT Alkaline Phosphatase Total Creatine Kinase NT-Pro-B Natriuret Pep Albumin Urine WBC (Auto) Crossmatch 12/01/18 12/01/18 12/01/18 00:20 05:58 11:33 WBC RBC Hgb Hct MCH MCHC RDW Plt Count Lymph % (Auto) [place] % (Auto) Eos % (Auto) Lymph # [place] # Eos # Seg Neutrophils % Seg Neutrophils # PT INR POC ABG pH POC ABG pCO2 POC ABG pO2 VBG pH Sodium Potassium Chloride Carbon Dioxide BUN Creatinine Glucose POC Glucose 113 H 127 H 138 H Magnesium AST ALT Alkaline Phosphatase Total Creatine Kinase NT-Pro-B Natriuret Pep Albumin Urine WBC (Auto) Crossmatch 12/02/18 12/03/18 12/03/18 00:33 05:07 05:07 WBC RBC 2.93 L Hgb 8.2 L Hct 24.9 L MCH MCHC RDW 17.0 H Plt Count 470 H Lymph % (Auto) 9.3 L [place] % (Auto) 8.6 H Eos % (Auto) 5.4 H Lymph # 0.9 L [place] # Eos # 0.5 H Seg Neutrophils % 75.8 H Seg Neutrophils # PT INR POC ABG pH POC ABG pCO2 POC ABG pO2 VBG pH Sodium Potassium Chloride Carbon Dioxide BUN 30 H Creatinine 0.6 L Glucose 115 H POC Glucose 110 H Magnesium AST ALT Alkaline Phosphatase Total Creatine Kinase NT-Pro-B Natriuret Pep Albumin Urine WBC (Auto) Crossmatch 12/03/18 12/03/18 12/03/18 05:58 11:49 17:44 WBC RBC Hgb Hct MCH MCHC RDW Plt Count Lymph % (Auto) [place] % (Auto) Eos % (Auto) Lymph # [place] # Eos # Seg Neutrophils % Seg Neutrophils # PT INR POC ABG pH POC ABG pCO2 POC ABG pO2 VBG pH Sodium Potassium Chloride Carbon Dioxide BUN Creatinine Glucose POC Glucose 127 H 138 H 127 H Magnesium AST ALT Alkaline Phosphatase Total Creatine Kinase NT-Pro-B Natriuret Pep Albumin Urine WBC (Auto) Crossmatch 12/05/18 12/05/18 12/05/18 00:22 05:53 17:18 WBC RBC Hgb Hct MCH MCHC RDW Plt Count Lymph % (Auto) [place] % (Auto) Eos % (Auto) Lymph # [place] # Eos # Seg Neutrophils % Seg Neutrophils # PT INR POC ABG pH POC ABG pCO2 POC ABG pO2 VBG pH Sodium Potassium Chloride Carbon Dioxide BUN Creatinine Glucose POC Glucose 124 H 121 H 112 H Magnesium AST ALT Alkaline Phosphatase Total Creatine Kinase NT-Pro-B Natriuret Pep Albumin Urine WBC (Auto) Crossmatch 12/06/18 12/06/18 12/06/18 00:07 06:16 11:43 WBC RBC Hgb Hct MCH MCHC RDW Plt Count Lymph % (Auto) [place] % (Auto) Eos % (Auto) Lymph # [place] # Eos # Seg Neutrophils % Seg Neutrophils # PT INR POC ABG pH POC ABG pCO2 POC ABG pO2 VBG pH Sodium Potassium Chloride Carbon Dioxide BUN Creatinine Glucose POC Glucose 111 H 117 H 121 H Magnesium AST ALT Alkaline Phosphatase Total Creatine Kinase NT-Pro-B Natriuret Pep Albumin Urine WBC (Auto) Crossmatch 12/06/18 12/07/18 12/07/18 20:57 06:41 12:09 WBC RBC Hgb Hct MCH MCHC RDW Plt Count Lymph % (Auto) [place] % (Auto) Eos % (Auto) Lymph # [place] # Eos # Seg Neutrophils % Seg Neutrophils # PT INR POC ABG pH POC ABG pCO2 POC ABG pO2 VBG pH Sodium Potassium Chloride 107.2 H Carbon Dioxide BUN 27 H Creatinine 0.7 L Glucose POC Glucose 128 H 137 H Magnesium 2.50 H AST ALT Alkaline Phosphatase Total Creatine Kinase NT-Pro-B Natriuret Pep Albumin Urine WBC (Auto) Crossmatch 12/07/18 12/08/18 12/08/18 19:29 05:44 12:27 WBC RBC Hgb Hct MCH MCHC RDW Plt Count Lymph % (Auto) [place] % (Auto) Eos % (Auto) Lymph # [place] # Eos # Seg Neutrophils % Seg Neutrophils # PT INR POC ABG pH POC ABG pCO2 POC ABG pO2 VBG pH Sodium Potassium Chloride Carbon Dioxide BUN Creatinine Glucose POC Glucose 110 H 126 H 130 H Magnesium AST ALT Alkaline Phosphatase Total Creatine Kinase NT-Pro-B Natriuret Pep Albumin Urine WBC (Auto) Crossmatch 12/08/18 12/09/18 12/09/18 17:44 00:20 06:42 WBC RBC Hgb Hct MCH MCHC RDW Plt Count Lymph % (Auto) [place] % (Auto) Eos % (Auto) Lymph # [place] # Eos # Seg Neutrophils % Seg Neutrophils # PT INR POC ABG pH POC ABG pCO2 POC ABG pO2 VBG pH Sodium Potassium Chloride Carbon Dioxide BUN Creatinine Glucose POC Glucose 113 H 121 H 124 H Magnesium AST ALT Alkaline Phosphatase Total Creatine Kinase NT-Pro-B Natriuret Pep Albumin Urine WBC (Auto) Crossmatch 12/09/18 12/09/18 12/09/18 12:24 18:41 23:48 WBC RBC Hgb Hct MCH MCHC RDW Plt Count Lymph % (Auto) [place] % (Auto) Eos % (Auto) Lymph # [place] # Eos # Seg Neutrophils % Seg Neutrophils # PT INR POC ABG pH POC ABG pCO2 POC ABG pO2 VBG pH Sodium Potassium Chloride Carbon Dioxide BUN Creatinine Glucose POC Glucose 114 H 109 H 128 H Magnesium AST ALT Alkaline Phosphatase Total Creatine Kinase NT-Pro-B Natriuret Pep Albumin Urine WBC (Auto) Crossmatch 12/10/18 12/10/18 12/11/18 07:07 11:28 00:24 WBC RBC Hgb Hct MCH MCHC RDW Plt Count Lymph % (Auto) [place] % (Auto) Eos % (Auto) Lymph # [place] # Eos # Seg Neutrophils % Seg Neutrophils # PT INR POC ABG pH POC ABG pCO2 POC ABG pO2 VBG pH Sodium Potassium Chloride Carbon Dioxide BUN Creatinine Glucose POC Glucose 111 H 110 H 112 H Magnesium AST ALT Alkaline Phosphatase Total Creatine Kinase NT-Pro-B Natriuret Pep Albumin Urine WBC (Auto) Crossmatch 12/11/18 12/11/18 12/11/18 06:44 11:53 18:17 WBC RBC Hgb Hct MCH MCHC RDW Plt Count Lymph % (Auto) [place] % (Auto) Eos % (Auto) Lymph # [place] # Eos # Seg Neutrophils % Seg Neutrophils # PT INR POC ABG pH POC ABG pCO2 POC ABG pO2 VBG pH Sodium Potassium Chloride Carbon Dioxide BUN Creatinine Glucose POC Glucose 111 H 132 H 133 H Magnesium AST ALT Alkaline Phosphatase Total Creatine Kinase NT-Pro-B Natriuret Pep Albumin Urine WBC (Auto) Crossmatch 12/11/18 12/12/18 12/12/18 23:58 00:05 06:11 WBC RBC 2.85 L Hgb 7.8 L Hct 24.4 L MCH 27 L MCHC RDW 17.4 H Plt Count 459 H Lymph % (Auto) [place] % (Auto) 11.2 H Eos % (Auto) 5.4 H Lymph # [place] # 1.1 H Eos # 0.5 H Seg Neutrophils % Seg Neutrophils # PT INR POC ABG pH POC ABG pCO2 POC ABG pO2 VBG pH Sodium Potassium Chloride Carbon Dioxide BUN Creatinine Glucose POC Glucose 126 H 144 H Magnesium AST ALT Alkaline Phosphatase Total Creatine Kinase NT-Pro-B Natriuret Pep Albumin Urine WBC (Auto) Crossmatch 12/12/18 12/12/18 12/13/18 11:42 18:36 00:12 WBC RBC Hgb Hct MCH MCHC RDW Plt Count Lymph % (Auto) [place] % (Auto) Eos % (Auto) Lymph # [place] # Eos # Seg Neutrophils % Seg Neutrophils # PT INR POC ABG pH POC ABG pCO2 POC ABG pO2 VBG pH Sodium Potassium Chloride Carbon Dioxide BUN Creatinine Glucose POC Glucose 106 H 117 H 115 H Magnesium AST ALT Alkaline Phosphatase Total Creatine Kinase NT-Pro-B Natriuret Pep Albumin Urine WBC (Auto) Crossmatch 12/13/18 05:58 WBC RBC Hgb Hct MCH MCHC RDW Plt Count Lymph % (Auto) [place] % (Auto) Eos % (Auto) Lymph # [place] # Eos # Seg Neutrophils % Seg Neutrophils # PT INR POC ABG pH POC ABG pCO2 POC ABG pO2 VBG pH Sodium Potassium Chloride Carbon Dioxide BUN Creatinine Glucose POC Glucose 122 H Magnesium AST ALT Alkaline Phosphatase Total Creatine Kinase NT-Pro-B Natriuret Pep Albumin Urine WBC (Auto) Crossmatch Allied health notes reviewed: nursing
[2018-12-13] MEDS: Centrum Liq FEEDTUBE SCH (10:11)
[2018-12-13] MEDS: MIRALAX 3350 FEEDTUBE SCH (10:11)
[2018-12-13] MEDS: LOVENOX SUB-Q SCH (10:11)
[2018-12-13] MEDS: ZINC SULFATE PO SCH (10:11)
[2018-12-13] MEDS: DUONEB *Not for PRN Use IH SCH ×2 (12:42→20:07)
--- NOTE | 2018-12-13 12:43 | Progress Note ---
Subjective Date of service: 12/13/18 Principal diagnosis: Severe Sepsis; Ac. 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 Pt is stuporous and unable to provide history. Pt history taken from ED Staff, EMS, and SNF Staff. As per staff, the patient was found to have respiratory distress upon evaluation this morning. Pt found to have pulse oximetry in the 80's. EMS notified and patient subsequently transported to [facility] for further care and evaluation. Pt seen and evaluated in ED and found to have UTI, Sepsis, Encephalopathy as well as Acute Hypoxemic Respiratory Failure. Pt initiated on NIPPV in ED with improvement in symptoms. Pt admitted to IMCU and initiated on Sepsis protocol. Prior admission on 10/01/[address] - Bright placed last night (Dr. Gambino) urine clear abd soft A/P plug bright side port (isaias chen drip) home with bright f/u with Objective - Constitutional Vitals: Vital Signs - 12hr 12/13/18 12/13/18 01:25 08:04 Temperature 99.0 F 98.1 F Pulse Rate 83 86 Respiratory 26 H 18 Rate Blood Pressure 108/61 123/59 O2 Sat by Pulse 95 96 Oximetry - Labs CBC & Chem 7: 12/12/18 00:05 12/06/18 20:57 Labs: Abnormal lab results 12/12/18 12/13/18 12/13/18 Range/Units 18:36 00:12 05:58 POC Glucose 117 H 115 H 122 H (70-105) 12/13/18 Range/Units 11:52 POC Glucose 129 H (70-105) Medications & Allergies - Medications Allergies/Adverse Reactions: Allergies lisinopril Allergy (Verified 10/01/18 15:17) Unknown tramadol Allergy (Verified 07/29/18 18:39) Unknown Home Medications: Home Medications Medication Instructions Recorded Confirmed Last Taken Type Multivit-Min/Iron Fum/Folic AC 1 each PO DAILY 03/24/18 11/01/18 Unknown History [Kczgv-Kzdvlaf-Cowohgpm Tablet] Acetaminophen 650 mg NGTUBE Q6H PRN 07/30/18 11/01/18 Unknown History Ipratropium/Albuterol Sulfate 1 ampul IH BID 07/30/18 11/01/18 Unknown History [DUONEB *Not for PRN Use*] Tamsulosin [Flomax] 0.4 mg PO QDAY 07/30/18 11/01/18 Unknown History Vit C/Ascorbate Calcium,Sodium 500 mg NGTUBE BID 07/30/18 11/01/18 Unknown History [Vitamin C 500 mg/15 ml Liquid] Zinc Sulfate 220 mg NGTUBE QDAY 07/30/18 11/01/18 Unknown History levETIRAcetam [Keppra INJ] 500 mg PO Q12H 07/30/18 11/01/18 Unknown History Phosphorus #1 [K-Phos Neutral] 250 mg PO QID #30 tablet 08/23/18 11/01/18 Unknown Rx hydroCHLOROthiazide [HCTZ] 12.5 mg PO QDAY #30 tablet 08/23/18 11/01/18 Unknown Rx AtorvaSTATin [Lipitor] 40 mg NGTUBE QHS #30 tablet 10/21/18 11/01/18 Unknown Rx cloNIDine-TTS PATCH [Catapres-Tts 0.2 mg TD Tu #7 patch 10/21/18 11/01/18 Unknown Rx 0.2mg Patch] Insulin Aspart [Novolog] 0 unit SQ AC 11/01/18 11/01/18 Unknown History Vancomycin/Water For Inj (Peg) 1 gm IV Q48H 11/01/18 11/01/18 Unknown History [Vancomycin 1 Gram/200 ml Bag] Active Medications: Generic Name Dose Route Start Last Admin Trade Name Freq PRN Reason Stop Dose Admin Acetaminophen 650 mg 12/11/18 15:21 12/11/18 16:39 Tylenol FEEDTUBE 650 mg Q6H PRN Administration Pain, Mild (1-3) Acetaminophen/Hydrocodone Bitart 1 each 11/15/18 04:51 12/05/18 04:08 Boyds 5/325 PO 1 each Q4H PRN Administration Pain, Moderate (4-6) Albuterol 2.5 mg 11/01/18 17:15 Proventil IH Q3HRT PRN Shortness Of Breath Albuterol/Ipratropium 1 ampul 11/28/18 20:00 12/12/18 19:46 Duoneb *Not For Prn Use* IH 1 ampul BIDRT NORA Administration Lipase/Protease/Amylase 1 each 11/03/18 17:12 12/02/18 08:40 Pancreazadela Moore 10,500 Unit FEEDTUBE 1 each PRN PRN Administration For Clogged Feeding Tube Ascorbic Acid 500 mg 11/01/18 22:00 12/13/18 10:11 Vitamin C FEEDTUBE 500 mg BID NORA Administration Atorvastatin Calcium 40 mg 11/01/18 22:00 12/13/18 00:16 Lipitor FEEDTUBE 40 mg QHS NORA Administration Carvedilol 6.25 mg 11/08/18 13:00 12/13/18 10:14 Coreg PO 6.25 mg BID NORA Administration Clonidine HCl 0.2 mg 11/05/18 17:18 12/10/18 20:46 Catapres-Tts Patch TD 0.2 mg Tu NORA Administration Enoxaparin Sodium 40 mg 11/02/18 10:00 12/13/18 10:11 Lovenox SUB-Q 40 mg QDAY@1000 NORA Administration Hydralazine HCl 10 mg 11/25/18 22:00 12/13/18 10:12 Apresoline PO 10 mg Q12HR NORA Administration Daptomycin 400 mg/ Sodium 100 mls @ 200 mls/hr 11/25/18 11:00 12/12/18 20:18 Chloride IV 12/16/18 11:29 Infused Q24H NORA Infusion Protocol Levetiracetam 500 mg 11/01/18 22:00 12/13/18 10:11 Keppra FEEDTUBE 500 mg BID NORA Administration Mineral Oil 133 ml 12/10/18 14:55 Fleet Mineral Oil MD QDAY PRN Constipation Morphine Sulfate 2 mg 11/01/18 17:15 12/10/18 23:15 Morphine IV 2 mg Q4H PRN Administration Pain, Moderate (4-6) Multivitamins 5 ml 11/02/18 10:00 12/13/18 10:11 Centrum Liq FEEDTUBE 5 ml QDAY NORA Administration Polyethylene Glycol 17 gm 12/10/18 15:00 12/13/18 10:11 Miralax 3350 FEEDTUBE 17 gm QDAY NORA Administration Senna 8.6 mg 12/10/18 14:56 Senokot FEEDTUBE Q12H PRN Laxative Effect Simple Syrup 15 ml 11/03/18 17:12 11/16/18 13:40 Simple Syrup FEEDTUBE 15 ml PRN PRN Administration Hypoglycemia Simple Syrup 30 ml 11/03/18 17:12 Simple Syrup FEEDTUBE PRN PRN Hypoglycemia Sodium Bicarbonate 325 mg 11/03/18 17:12 12/02/18 08:40 Sodium Bicarbonate FEEDTUBE 325 mg PRN PRN Administration For Clogged Feeding Tube Sodium Biphosphate/Sodium Phosphate 133 ml 12/10/18 14:55 Fleet MD QDAY PRN Bowel Movement Sodium Chloride 10 ml 11/01/18 22:00 12/13/18 10:10 Sodium Chloride Flush Syringe 10 Ml IV 10 ml BID NORA Administration Sodium Chloride 10 ml 11/01/18 17:15 11/23/18 04:05 Sodium Chloride Flush Syringe 10 Ml IV 10 ml PRN PRN Administration LINE FLUSH Zinc Sulfate 220 mg 11/02/18 10:00 12/13/18 10:11 Zinc Sulfate PO 220 mg DAILY NORA Administration
--- NOTE | 2018-12-13 16:41 | Progress Note ---
Assessment and Plan 67 YO Male [facility]pc Facility Resident as [facility] with HTN, CVA, Obstructive Uropathy, Diastolic CHF, Contracture, Sacral Decubitus Ulcers, CA, DM, OA, Seizure Disorder, COPD, Dementia, BPH presents to ED for evaluation. Pt is stuporous and unable to provide history. Pt history taken from ED Staff, EMS, and SNF Staff. As per staff, the patient was found to have respiratory distress upon evaluation this morning. Pt found to have pulse oximetry in the 80's. EMS notified and patient subsequently transported to [facility] for further care and evaluation. Pt seen and evaluated in ED and found to have UTI, Sepsis, Encephalopathy as well as Acute Hypoxemic Respiratory Failure. Pt initiated on NIPPV in ED with improvement in symptoms. Pt admitted to IMCU and initiated on Sepsis protocol. Prior admission on 10/01/18 reviewed. 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 He needs to be on contact isolation. This cannot be cured with antibiotics. recommend palliative care/comfort care or hospice, family are not interested in that option, continue daptomycin , at discharge will do daptomycin 400 mg IV q day for 6 weeks until 12/16/2018 sacral pressure ulcer -infected. POA WOUND CARE CONSULT. CONTINUE ABX. Debridement done by Dr Man Amputation recommended and the daughter refused Respiratory failure Supplemental oxygen, nebulizer therapy, mgt per pulmonology Anemia of chronic disease Transfused one unit PRBC hemoglobin is stable Seizure Continue current therapy, seizure precautions. BPH Continue Chaudhary catherter Dementia supportive care DVT prophylaxis Prophylactic lovenox POOR PROGNOSIS Disposition; pending SNF placement. . Needs to be in Hospice Subjective Date of service: 12/13/18 Principal diagnosis: Severe Sepsis; Ac. Hypoxemic Resp failure; Anemia; Seizure; UTI; BPH Interval history: Same condition Objective - Constitutional Vitals: Vital Signs - 12hr 12/13/18 08:04 Temperature 98.1 F Pulse Rate 86 Respiratory 18 Rate Blood Pressure 123/59 O2 Sat by Pulse 96 Oximetry General appearance: Present: no acute distress, well-nourished - EENT Eyes: PERRL, EOM intact ENT: hearing intact, clear oral mucosa Ears: bilateral: normal - Neck Neck: supple, normal ROM - Respiratory Respiratory effort: normal Respiratory: bilateral: CTA - Breasts Breasts: normal - Cardiovascular Heart rate: 78 Rhythm: regular Heart Sounds: Present: S1 & S2. Absent: gallop, rub Extremities: pulses intact, No edema, normal color, Full ROM, abnormal (Sacral decub ulcer) - Gastrointestinal General gastrointestinal: Present: soft, non-tender, non-distended, normal bowel sounds - Genitourinary Male genitourinary: normal - Integumentary Integumentary: clear, warm, dry - Musculoskeletal Musculoskeletal: 1, strength equal bilaterally - Neurologic Neurologic: moves all extremities - Psychiatric Psychiatric: memory intact, appropriate mood/affect, intact judgment & insight - Labs CBC & Chem 7: 12/12/18 00:05 12/06/18 20:57 Labs: Abnormal lab results 12/12/18 12/13/18 12/13/18 Range/Units 18:36 00:12 05:58 POC Glucose 117 H 115 H 122 H (70-105) 12/13/18 Range/Units 11:52 POC Glucose 129 H (70-105)
[2018-12-13] MEDS: DAPTOMYCIN IV SCH (16:48)
[2018-12-13] MEDS: NACL 0.9% IV SCH (16:48)
[2018-12-14 05:31] LABS: Basophils # (Auto) 0.1 K/mm3 (0.0-0.1); Basophils % (Auto) 0.8 % (0.0-1.8); Eosinophils # (Auto) 0.4 K/mm3 (0.0-0.4); Eosinophils % (Auto) 4.8 % (0.0-4.3); Hematocrit 22.1 % (35.5-45.6); Hemoglobin 7.2 gm/dl (11.8-15.2); Lymphocytes # (Auto) 1.3 K/mm3 (1.2-5.4); Lymphocytes % (Auto) 14.5 % (13.4-35.0); Mean Corpuscular HGB Conc 33 % (32-34); Mean Corpuscular Volume 86 fl (84-94); Monocytes # (Auto) 1.1 K/mm3 (0.0-0.8); Monocytes % (Auto) 11.5 % (0.0-7.3); Platelet Count 473 K/mm3 (140-440); Red Blood Count 2.56 M/mm3 (3.65-5.03); Red Cell Distribution Width 17.8 % (13.2-15.2)
[2018-12-14 06:09] LABS: Alanine Aminotransferase 67 units/L (7-56); Albumin 1.9 g/dL (3.9-5); BUN/Creatinine Ratio 50; Blood Urea Nitrogen 40 mg/dL (9-20); Hemolysis Index 3
[2018-12-14] MEDS: DUONEB *Not for PRN Use IH SCH ×2 (09:02→21:32)
[2018-12-14] MEDS: Centrum Liq FEEDTUBE SCH (09:58)
[2018-12-14] MEDS: ZINC SULFATE PO SCH (09:58)
[2018-12-14] MEDS: KEPPRA FEEDTUBE SCH ×2 (09:58→22:25)
[2018-12-14] MEDS: LOVENOX SUB-Q SCH (09:58)
[2018-12-14] MEDS: APRESOLINE PO SCH ×2 (09:58→22:39)
[2018-12-14] MEDS: COREG PO SCH ×2 (10:02→22:25)
[2018-12-14] MEDS: SODIUM CHLORIDE FLUSH SYRINGE 10 ML IV SCH ×3 (10:03→21:33)
[2018-12-14] MEDS: VITAMIN C FEEDTUBE SCH ×2 (10:03→22:25)
[2018-12-14] MEDS: MIRALAX 3350 FEEDTUBE SCH (10:03)
[2018-12-14] MEDS: DAPTOMYCIN IV SCH (11:14)
[2018-12-14] MEDS: NACL 0.9% IV SCH (11:14)
--- NOTE | 2018-12-14 11:35 | Progress Note ---
Assessment and Plan Severe Sepsis Acute Hypoxemic Respiratory failure Anemia of chronic disease Seizure UTI (urinary tract infection) BPH Dementia sacral pressure ulcer -infected. POA - continue supplemental oxygen as needed to keep O2 sat's > 90% - continue bronchodilators with pulmonary hygiene per RT (will stop scheduled treatments) - continue aspiration precautions - complete antibiotics per ID rec's (On Daptomycin) - prn BIPAP for increased work of breathing - prn CXR's - continue Coreg re: SVT - continue AED's for seizure control (Keppra) - continue fall precautions & neurochecks - enteral nutrition as tolerated - continue wound care per WCT - continue bright catheter re: Obstructive Uropathy - GI & VTE prophylaxis - continue mobility protocol for pressure ulcer prophylaxis - continue other care per attending / other consultants ...... remains Full CODE ... re-evaluate in am & prn Subjective Date of service: 12/14/18 Principal diagnosis: Severe Sepsis; Ac. Hypoxemic Resp failure; Anemia; Seizure; UTI; BPH Interval history: Patient is seen today for: Severe Sepsis; Acute Hypoxemic Respiratory failure; Anemia of chronic disease; Seizure; UTI (urinary tract infection); BPH; Dem entia; sacral pressure ulcer -infected. POA Seen and examined at bedside; 24-hour events reviewed; nursing and respiratory care staff consulted; no adverse overnight events reported to me; resting peacefully in bed; remains on daptomycin; still unable to place but discharge planning ongoing; he denies N/V/F/C; intermittent need for supplemental oxygen Objective Vital Signs - 12hr 12/14/18 12/14/18 12/14/18 01:22 07:59 09:02 Temperature 99.4 F 99.0 F Pulse Rate 85 87 Pulse Rate [ 85 Anterior Bilateral Throughout] Respiratory 34 H 20 Rate Respiratory 16 Rate [Anterior Bilateral Throughout] Blood Pressure 105/58 122/61 O2 Sat by Pulse 93 96 Oximetry 12/14/18 12/14/18 09:58 10:02 Temperature Pulse Rate 83 83 Pulse Rate [ Anterior Bilateral Throughout] Respiratory Rate Respiratory Rate [Anterior Bilateral Throughout] Blood Pressure 123/66 123/66 O2 Sat by Pulse Oximetry Constitutional: no acute distress, alert, other (elderly looking AAM, normocephalic with mildly increased resp effort at rest) Eyes: non-icteric ENT: oropharynx moist Neck: no lymphadenopathy, no JVD, other (mild stiffness / contracture) Effort: normal Ascultation: Bilateral: clear, diminished breath sounds Percussion: Bilateral: not dull Cardiovascular: regular rate and rhythm Gastrointestinal: normoactive bowel sounds, soft, non-tender, non-distended Integumentary: rash Extremities: no cyanosis, no edema, pulses normal, other (Patient has pressure ulcer at multiple areas, including sacral area.) Neurologic: non-focal exam, pupils equal and round, CN II-XII normal, other (+ contractures) Psychiatric: mood appropriate, affect normal CBC and BMP: 12/15/18 05:13 12/15/18 05:13 ABG, PT/INR, D-dimer: ABG POC ABG pH 7.494 (7.35-7.45) H 11/01/18 15:27 POC ABG pCO2 34.5 (35-45) L 11/01/18 15:27 POC ABG pO2 139 (80-105) H 11/01/18 15:27 POC ABG HCO3 26.5 (22-26 mml/L) 11/01/18 15:27 POC ABG Total CO2 28 (23-27mmol/L) 11/01/18 15:27 POC ABG O2 Sat 99 11/01/18 15:27 PT/INR, D-dimer PT 16.3 Sec. (12.2-14.9) H 11/01/18 14:50 INR 1.35 (0.87-1.13) H 11/01/18 14:50 Abnormal lab findings: Abnormal Labs 11/01/18 11/01/18 11/01/18 14:50 14:50 14:50 WBC 15.3 H RBC 2.76 L Hgb 7.9 L Hct 23.5 L MCH MCHC RDW 18.3 H Plt Count 567 H Lymph % (Auto) 6.5 L [place] % (Auto) 8.5 H Eos % (Auto) Lymph # 1.0 L [place] # 1.3 H Eos # Seg Neutrophils % 83.4 H Seg Neutrophils # 12.7 H PT 16.3 H INR 1.35 H POC ABG pH POC ABG pCO2 POC ABG pO2 VBG pH Sodium Potassium Chloride Carbon Dioxide BUN 49 H Creatinine Glucose 132 H POC Glucose Magnesium AST 90 H ALT 77 H Alkaline Phosphatase 350 H Total Creatine Kinase NT-Pro-B Natriuret Pep Albumin 1.6 L Urine WBC (Auto) Crossmatch 11/01/18 11/01/18 11/01/18 14:50 14:50 15:27 WBC RBC Hgb Hct MCH MCHC RDW Plt Count Lymph % (Auto) [place] % (Auto) Eos % (Auto) Lymph # [place] # Eos # Seg Neutrophils % Seg Neutrophils # PT INR POC ABG pH 7.494 H POC ABG pCO2 34.5 L POC ABG pO2 139 H VBG pH 7.499 H Sodium Potassium Chloride Carbon Dioxide BUN Creatinine Glucose POC Glucose Magnesium AST ALT Alkaline Phosphatase Total Creatine Kinase NT-Pro-B Natriuret Pep 6776 H Albumin Urine WBC (Auto) Crossmatch 11/01/18 11/03/18 11/03/18 15:57 03:41 03:41 WBC 12.8 H RBC 2.55 L Hgb 6.9 L Hct 22.2 L MCH 27 L MCHC 31 L RDW 17.9 H Plt Count 519 H Lymph % (Auto) [place] % (Auto) Eos % (Auto) Lymph # [place] # Eos # Seg Neutrophils % Seg Neutrophils # PT INR POC ABG pH POC ABG pCO2 POC ABG pO2 VBG pH Sodium 147 H Potassium Chloride 110.3 H Carbon Dioxide BUN 55 H Creatinine Glucose POC Glucose Magnesium AST ALT Alkaline Phosphatase Total Creatine Kinase NT-Pro-B Natriuret Pep Albumin Urine WBC (Auto) > 182.0 H Crossmatch 11/03/18 11/04/18 11/04/18 12:51 05:12 05:12 WBC 11.5 H RBC 2.94 L Hgb 8.3 L Hct 25.3 L MCH MCHC RDW 17.3 H Plt Count 514 H Lymph % (Auto) [place] % (Auto) Eos % (Auto) Lymph # [place] # Eos # Seg Neutrophils % Seg Neutrophils # PT INR POC ABG pH POC ABG pCO2 POC ABG pO2 VBG pH Sodium 147 H Potassium Chloride 112.4 H Carbon Dioxide BUN 52 H Creatinine Glucose POC Glucose Magnesium AST ALT Alkaline Phosphatase Total Creatine Kinase NT-Pro-B Natriuret Pep Albumin Urine WBC (Auto) Crossmatch See Detail 11/05/18 11/05/18 11/06/18 04:50 04:50 05:42 WBC RBC 3.03 L 2.80 L Hgb 8.7 L 7.9 L Hct 26.6 L 24.7 L MCH MCHC RDW 17.1 H 17.0 H Plt Count 502 H 478 H Lymph % (Auto) 10.4 L [place] % (Auto) 8.6 H Eos % (Auto) 4.7 H Lymph # 1.0 L [place] # Eos # 0.5 H Seg Neutrophils % 75.6 H Seg Neutrophils # PT INR POC ABG pH POC ABG pCO2 POC ABG pO2 VBG pH Sodium 149 H Potassium Chloride 114.4 H Carbon Dioxide 21 L BUN 50 H Creatinine Glucose 108 H POC Glucose Magnesium AST ALT Alkaline Phosphatase Total Creatine Kinase NT-Pro-B Natriuret Pep Albumin Urine WBC (Auto) Crossmatch 11/06/18 11/11/18 11/12/18 05:42 18:54 00:22 WBC RBC Hgb Hct MCH MCHC RDW Plt Count Lymph % (Auto) [place] % (Auto) Eos % (Auto) Lymph # [place] # Eos # Seg Neutrophils % Seg Neutrophils # PT INR POC ABG pH POC ABG pCO2 POC ABG pO2 VBG pH Sodium 149 H Potassium Chloride 113.4 H Carbon Dioxide BUN 50 H Creatinine Glucose 121 H POC Glucose 114 H 123 H Magnesium AST ALT Alkaline Phosphatase Total Creatine Kinase NT-Pro-B Natriuret Pep Albumin Urine WBC (Auto) Crossmatch 11/12/18 11/12/18 11/13/18 06:49 11:35 06:34 WBC RBC Hgb Hct MCH MCHC RDW Plt Count Lymph % (Auto) [place] % (Auto) Eos % (Auto) Lymph # [place] # Eos # Seg Neutrophils % Seg Neutrophils # PT INR POC ABG pH POC ABG pCO2 POC ABG pO2 VBG pH Sodium Potassium Chloride Carbon Dioxide BUN Creatinine Glucose POC Glucose 129 H 123 H 128 H Magnesium AST ALT Alkaline Phosphatase Total Creatine Kinase NT-Pro-B Natriuret Pep Albumin Urine WBC (Auto) Crossmatch 11/13/18 11/13/18 11/13/18 09:26 09:26 15:13 WBC RBC 3.08 L Hgb 8.6 L Hct 27.3 L MCH MCHC 31 L RDW 18.3 H Plt Count 504 H Lymph % (Auto) 11.7 L [place] % (Auto) 7.5 H Eos % (Auto) 7.0 H Lymph # [place] # Eos # 0.7 H Seg Neutrophils % 72.9 H Seg Neutrophils # PT INR POC ABG pH POC ABG pCO2 POC ABG pO2 VBG pH Sodium 153 H Potassium 6.3 H* 5.8 H Chloride 122.3 H Carbon Dioxide 21 L BUN 38 H Creatinine Glucose 112 H POC Glucose Magnesium AST ALT Alkaline Phosphatase Total Creatine Kinase NT-Pro-B Natriuret Pep Albumin Urine WBC (Auto) Crossmatch 11/13/18 11/13/18 11/14/18 22:10 23:45 13:17 WBC RBC Hgb Hct MCH MCHC RDW Plt Count Lymph % (Auto) [place] % (Auto) Eos % (Auto) Lymph # [place] # Eos # Seg Neutrophils % Seg Neutrophils # PT INR POC ABG pH POC ABG pCO2 POC ABG pO2 VBG pH Sodium 155 H Potassium 5.3 H Chloride 122.3 H Carbon Dioxide BUN 35 H Creatinine Glucose 113 H POC Glucose 111 H 142 H Magnesium AST ALT Alkaline Phosphatase Total Creatine Kinase NT-Pro-B Natriuret Pep Albumin Urine WBC (Auto) Crossmatch 11/14/18 11/15/18 11/15/18 19:08 00:31 06:45 WBC RBC Hgb Hct MCH MCHC RDW Plt Count Lymph % (Auto) [place] % (Auto) Eos % (Auto) Lymph # [place] # Eos # Seg Neutrophils % Seg Neutrophils # PT INR POC ABG pH POC ABG pCO2 POC ABG pO2 VBG pH Sodium Potassium Chloride Carbon Dioxide BUN Creatinine Glucose POC Glucose 116 H 125 H 131 H Magnesium AST ALT Alkaline Phosphatase Total Creatine Kinase NT-Pro-B Natriuret Pep Albumin Urine WBC (Auto) Crossmatch 11/15/18 11/15/18 11/15/18 07:13 07:13 19:03 WBC 13.2 H RBC 2.81 L Hgb 7.8 L Hct 24.5 L MCH MCHC RDW 18.2 H Plt Count 454 H Lymph % (Auto) 9.0 L [place] % (Auto) 7.5 H Eos % (Auto) Lymph # [place] # 1.0 H Eos # 0.5 H Seg Neutrophils % 78.8 H Seg Neutrophils # 10.4 H PT INR POC ABG pH POC ABG pCO2 POC ABG pO2 VBG pH Sodium 149 H Potassium 5.2 H Chloride 117.2 H Carbon Dioxide BUN 38 H Creatinine Glucose 114 H POC Glucose 141 H Magnesium AST ALT Alkaline Phosphatase Total Creatine Kinase NT-Pro-B Natriuret Pep Albumin Urine WBC (Auto) Crossmatch 11/16/18 11/16/18 11/16/18 01:15 01:15 06:45 WBC RBC Hgb Hct MCH MCHC RDW Plt Count Lymph % (Auto) [place] % (Auto) Eos % (Auto) Lymph # [place] # Eos # Seg Neutrophils % Seg Neutrophils # PT INR POC ABG pH POC ABG pCO2 POC ABG pO2 VBG pH Sodium Potassium 5.3 H Chloride Carbon Dioxide BUN Creatinine Glucose POC Glucose 129 H Magnesium 2.60 H AST ALT Alkaline Phosphatase Total Creatine Kinase NT-Pro-B Natriuret Pep Albumin Urine WBC (Auto) Crossmatch 11/16/18 11/16/18 11/17/18 13:20 18:02 00:16 WBC RBC Hgb Hct MCH MCHC RDW Plt Count Lymph % (Auto) [place] % (Auto) Eos % (Auto) Lymph # [place] # Eos # Seg Neutrophils % Seg Neutrophils # PT INR POC ABG pH POC ABG pCO2 POC ABG pO2 VBG pH Sodium Potassium Chloride Carbon Dioxide BUN Creatinine Glucose POC Glucose 130 H 127 H 120 H Magnesium AST ALT Alkaline Phosphatase Total Creatine Kinase NT-Pro-B Natriuret Pep Albumin Urine WBC (Auto) Crossmatch 11/17/18 11/17/18 11/17/18 05:48 08:02 08:02 WBC RBC Hgb 7.5 L Hct 23.5 L MCH MCHC RDW Plt Count Lymph % (Auto) [place] % (Auto) Eos % (Auto) Lymph # [place] # Eos # Seg Neutrophils % Seg Neutrophils # PT INR POC ABG pH POC ABG pCO2 POC ABG pO2 VBG pH Sodium Potassium Chloride 110.1 H Carbon Dioxide 21 L BUN 38 H Creatinine Glucose 121 H POC Glucose 130 H Magnesium AST ALT Alkaline Phosphatase Total Creatine Kinase NT-Pro-B Natriuret Pep Albumin Urine WBC (Auto) Crossmatch 11/17/18 11/17/18 11/18/18 12:17 16:48 06:00 WBC RBC Hgb Hct MCH MCHC RDW Plt Count Lymph % (Auto) [place] % (Auto) Eos % (Auto) Lymph # [place] # Eos # Seg Neutrophils % Seg Neutrophils # PT INR POC ABG pH POC ABG pCO2 POC ABG pO2 VBG pH Sodium Potassium Chloride Carbon Dioxide BUN Creatinine Glucose POC Glucose 140 H 120 H 137 H Magnesium AST ALT Alkaline Phosphatase Total Creatine Kinase NT-Pro-B Natriuret Pep Albumin Urine WBC (Auto) Crossmatch 11/19/18 11/19/18 11/19/18 00:20 05:35 06:11 WBC RBC Hgb Hct MCH MCHC RDW Plt Count Lymph % (Auto) [place] % (Auto) Eos % (Auto) Lymph # [place] # Eos # Seg Neutrophils % Seg Neutrophils # PT INR POC ABG pH POC ABG pCO2 POC ABG pO2 VBG pH Sodium Potassium Chloride Carbon Dioxide BUN Creatinine Glucose POC Glucose 111 H 126 H Magnesium AST ALT Alkaline Phosphatase Total Creatine Kinase 53 L NT-Pro-B Natriuret Pep Albumin Urine WBC (Auto) Crossmatch 11/19/18 11/19/18 11/20/18 11:37 23:43 06:52 WBC RBC Hgb Hct MCH MCHC RDW Plt Count Lymph % (Auto) [place] % (Auto) Eos % (Auto) Lymph # [place] # Eos # Seg Neutrophils % Seg Neutrophils # PT INR POC ABG pH POC ABG pCO2 POC ABG pO2 VBG pH Sodium Potassium Chloride Carbon Dioxide BUN Creatinine Glucose POC Glucose 139 H 145 H 125 H Magnesium AST ALT Alkaline Phosphatase Total Creatine Kinase NT-Pro-B Natriuret Pep Albumin Urine WBC (Auto) Crossmatch 11/20/18 11/20/18 11/20/18 09:55 09:55 11:49 WBC RBC 3.04 L Hgb 8.4 L Hct 26.1 L MCH MCHC RDW 17.5 H Plt Count Lymph % (Auto) [place] % (Auto) Eos % (Auto) Lymph # [place] # Eos # Seg Neutrophils % Seg Neutrophils # PT INR POC ABG pH POC ABG pCO2 POC ABG pO2 VBG pH Sodium 149 H Potassium Chloride 114.5 H Carbon Dioxide 21 L BUN 35 H Creatinine Glucose 127 H POC Glucose 150 H Magnesium AST ALT Alkaline Phosphatase Total Creatine Kinase NT-Pro-B Natriuret Pep Albumin Urine WBC (Auto) Crossmatch 11/20/18 11/20/18 11/21/18 18:02 23:49 06:14 WBC RBC Hgb Hct MCH MCHC RDW Plt Count Lymph % (Auto) [place] % (Auto) Eos % (Auto) Lymph # [place] # Eos # Seg Neutrophils % Seg Neutrophils # PT INR POC ABG pH POC ABG pCO2 POC ABG pO2 VBG pH Sodium Potassium Chloride Carbon Dioxide BUN Creatinine Glucose POC Glucose 131 H 137 H 133 H Magnesium AST ALT Alkaline Phosphatase Total Creatine Kinase NT-Pro-B Natriuret Pep Albumin Urine WBC (Auto) Crossmatch 11/21/18 11/21/18 11/21/18 10:00 12:09 18:04 WBC RBC Hgb Hct MCH MCHC RDW Plt Count Lymph % (Auto) [place] % (Auto) Eos % (Auto) Lymph # [place] # Eos # Seg Neutrophils % Seg Neutrophils # PT INR POC ABG pH POC ABG pCO2 POC ABG pO2 VBG pH Sodium Potassium Chloride 110.6 H Carbon Dioxide BUN 31 H Creatinine Glucose 119 H POC Glucose 116 H 126 H Magnesium AST ALT Alkaline Phosphatase Total Creatine Kinase NT-Pro-B Natriuret Pep Albumin Urine WBC (Auto) Crossmatch 11/22/18 11/22/18 11/22/18 00:14 05:47 06:23 WBC RBC Hgb Hct MCH MCHC RDW Plt Count Lymph % (Auto) [place] % (Auto) Eos % (Auto) Lymph # [place] # Eos # Seg Neutrophils % Seg Neutrophils # PT INR POC ABG pH POC ABG pCO2 POC ABG pO2 VBG pH Sodium Potassium Chloride 107.6 H Carbon Dioxide BUN 32 H Creatinine 0.7 L Glucose 116 H POC Glucose 122 H 119 H Magnesium AST ALT Alkaline Phosphatase Total Creatine Kinase NT-Pro-B Natriuret Pep Albumin Urine WBC (Auto) Crossmatch 11/22/18 11/22/18 11/22/18 08:40 12:19 17:39 WBC RBC Hgb Hct MCH MCHC RDW Plt Count Lymph % (Auto) [place] % (Auto) Eos % (Auto) Lymph # [place] # Eos # Seg Neutrophils % Seg Neutrophils # PT INR POC ABG pH POC ABG pCO2 POC ABG pO2 VBG pH Sodium Potassium Chloride Carbon Dioxide BUN Creatinine Glucose POC Glucose 150 H 111 H 108 H Magnesium AST ALT Alkaline Phosphatase Total Creatine Kinase NT-Pro-B Natriuret Pep Albumin Urine WBC (Auto) Crossmatch 11/23/18 11/23/18 11/23/18 00:36 05:37 05:56 WBC RBC Hgb Hct MCH MCHC RDW Plt Count Lymph % (Auto) [place] % (Auto) Eos % (Auto) Lymph # [place] # Eos # Seg Neutrophils % Seg Neutrophils # PT INR POC ABG pH POC ABG pCO2 POC ABG pO2 VBG pH Sodium 136 L Potassium Chloride Carbon Dioxide BUN 30 H Creatinine 0.7 L Glucose 103 H POC Glucose 125 H 122 H Magnesium 2.50 H AST ALT Alkaline Phosphatase Total Creatine Kinase NT-Pro-B Natriuret Pep Albumin Urine WBC (Auto) Crossmatch 11/23/18 11/23/18 11/23/18 11:56 17:39 23:40 WBC RBC Hgb Hct MCH MCHC RDW Plt Count Lymph % (Auto) [place] % (Auto) Eos % (Auto) Lymph # [place] # Eos # Seg Neutrophils % Seg Neutrophils # PT INR POC ABG pH POC ABG pCO2 POC ABG pO2 VBG pH Sodium Potassium Chloride Carbon Dioxide BUN Creatinine Glucose POC Glucose 121 H 113 H 117 H Magnesium AST ALT Alkaline Phosphatase Total Creatine Kinase NT-Pro-B Natriuret Pep Albumin Urine WBC (Auto) Crossmatch 11/24/18 11/24/18 11/24/18 05:13 12:00 18:13 WBC RBC Hgb Hct MCH MCHC RDW Plt Count Lymph % (Auto) [place] % (Auto) Eos % (Auto) Lymph # [place] # Eos # Seg Neutrophils % Seg Neutrophils # PT INR POC ABG pH POC ABG pCO2 POC ABG pO2 VBG pH Sodium Potassium Chloride Carbon Dioxide BUN Creatinine Glucose POC Glucose 143 H 123 H 124 H Magnesium AST ALT Alkaline Phosphatase Total Creatine Kinase NT-Pro-B Natriuret Pep Albumin Urine WBC (Auto) Crossmatch 11/24/18 11/25/18 11/25/18 23:34 05:25 05:25 WBC RBC 2.48 L Hgb 6.8 L Hct 21.2 L MCH MCHC RDW 17.7 H Plt Count Lymph % (Auto) [place] % (Auto) Eos % (Auto) Lymph # [place] # Eos # Seg Neutrophils % Seg Neutrophils # PT INR POC ABG pH POC ABG pCO2 POC ABG pO2 VBG pH Sodium Potassium Chloride 108.8 H Carbon Dioxide BUN 30 H Creatinine 0.7 L Glucose 112 H POC Glucose 115 H Magnesium AST ALT Alkaline Phosphatase Total Creatine Kinase NT-Pro-B Natriuret Pep Albumin Urine WBC (Auto) Crossmatch 11/25/18 11/25/18 11/25/18 06:46 11:15 11:28 WBC RBC Hgb 7.4 L Hct 23.0 L MCH MCHC RDW Plt Count Lymph % (Auto) [place] % (Auto) Eos % (Auto) Lymph # [place] # Eos # Seg Neutrophils % Seg Neutrophils # PT INR POC ABG pH POC ABG pCO2 POC ABG pO2 VBG pH Sodium Potassium Chloride Carbon Dioxide BUN Creatinine Glucose POC Glucose 133 H 127 H Magnesium AST ALT Alkaline Phosphatase Total Creatine Kinase NT-Pro-B Natriuret Pep Albumin Urine WBC (Auto) Crossmatch 11/25/18 11/25/18 11/25/18 15:28 17:32 23:45 WBC RBC Hgb Hct MCH MCHC RDW Plt Count Lymph % (Auto) [place] % (Auto) Eos % (Auto) Lymph # [place] # Eos # Seg Neutrophils % Seg Neutrophils # PT INR POC ABG pH POC ABG pCO2 POC ABG pO2 VBG pH Sodium Potassium Chloride Carbon Dioxide BUN Creatinine Glucose POC Glucose 115 H 130 H Magnesium AST ALT Alkaline Phosphatase Total Creatine Kinase NT-Pro-B Natriuret Pep Albumin Urine WBC (Auto) Crossmatch See Detail 11/26/18 11/26/18 11/26/18 06:13 06:20 06:20 WBC RBC 2.76 L Hgb 7.7 L Hct 23.4 L MCH MCHC RDW 17.5 H Plt Count Lymph % (Auto) [place] % (Auto) Eos % (Auto) Lymph # [place] # Eos # Seg Neutrophils % Seg Neutrophils # PT INR POC ABG pH POC ABG pCO2 POC ABG pO2 VBG pH Sodium Potassium Chloride 109.9 H Carbon Dioxide BUN 30 H Creatinine 0.6 L Glucose 121 H POC Glucose 129 H Magnesium AST ALT Alkaline Phosphatase Total Creatine Kinase NT-Pro-B Natriuret Pep Albumin Urine WBC (Auto) Crossmatch 11/26/18 11/26/18 11/27/18 12:06 16:35 06:04 WBC RBC Hgb Hct MCH MCHC RDW Plt Count Lymph % (Auto) [place] % (Auto) Eos % (Auto) Lymph # [place] # Eos # Seg Neutrophils % Seg Neutrophils # PT INR POC ABG pH POC ABG pCO2 POC ABG pO2 VBG pH Sodium Potassium Chloride Carbon Dioxide BUN Creatinine Glucose POC Glucose 139 H 107 H 126 H Magnesium AST ALT Alkaline Phosphatase Total Creatine Kinase NT-Pro-B Natriuret Pep Albumin Urine WBC (Auto) Crossmatch 11/27/18 11/27/18 11/28/18 13:14 17:47 07:03 WBC RBC Hgb Hct MCH MCHC RDW Plt Count Lymph % (Auto) [place] % (Auto) Eos % (Auto) Lymph # [place] # Eos # Seg Neutrophils % Seg Neutrophils # PT INR POC ABG pH POC ABG pCO2 POC ABG pO2 VBG pH Sodium Potassium Chloride Carbon Dioxide BUN Creatinine Glucose POC Glucose 130 H 115 H 118 H Magnesium AST ALT Alkaline Phosphatase Total Creatine Kinase NT-Pro-B Natriuret Pep Albumin Urine WBC (Auto) Crossmatch 11/28/18 11/29/18 11/29/18 11:38 00:35 04:56 WBC RBC Hgb Hct MCH MCHC RDW Plt Count Lymph % (Auto) [place] % (Auto) Eos % (Auto) Lymph # [place] # Eos # Seg Neutrophils % Seg Neutrophils # PT INR POC ABG pH POC ABG pCO2 POC ABG pO2 VBG pH Sodium Potassium Chloride Carbon Dioxide BUN Creatinine Glucose POC Glucose 126 H 107 H Magnesium AST ALT Alkaline Phosphatase Total Creatine Kinase 50 L NT-Pro-B Natriuret Pep Albumin Urine WBC (Auto) Crossmatch 11/29/18 11/29/18 11/29/18 05:49 11:46 18:17 WBC RBC Hgb Hct MCH MCHC RDW Plt Count Lymph % (Auto) [place] % (Auto) Eos % (Auto) Lymph # [place] # Eos # Seg Neutrophils % Seg Neutrophils # PT INR POC ABG pH POC ABG pCO2 POC ABG pO2 VBG pH Sodium Potassium Chloride Carbon Dioxide BUN Creatinine Glucose POC Glucose 128 H 140 H 115 H Magnesium AST ALT Alkaline Phosphatase Total Creatine Kinase NT-Pro-B Natriuret Pep Albumin Urine WBC (Auto) Crossmatch 11/30/18 11/30/18 11/30/18 00:00 03:30 03:30 WBC RBC 2.97 L Hgb 8.1 L Hct 25.5 L MCH 27 L MCHC RDW 17.7 H Plt Count Lymph % (Auto) 9.2 L [place] % (Auto) 10.0 H Eos % (Auto) 4.6 H Lymph # 1.0 L [place] # 1.1 H Eos # 0.5 H Seg Neutrophils % 75.6 H Seg Neutrophils # 8.4 H PT INR POC ABG pH POC ABG pCO2 POC ABG pO2 VBG pH Sodium Potassium Chloride Carbon Dioxide BUN 31 H Creatinine 0.7 L Glucose POC Glucose 120 H Magnesium AST ALT Alkaline Phosphatase Total Creatine Kinase NT-Pro-B Natriuret Pep Albumin Urine WBC (Auto) Crossmatch 11/30/18 11/30/18 11/30/18 06:54 11:45 16:59 WBC RBC Hgb Hct MCH MCHC RDW Plt Count Lymph % (Auto) [place] % (Auto) Eos % (Auto) Lymph # [place] # Eos # Seg Neutrophils % Seg Neutrophils # PT INR POC ABG pH POC ABG pCO2 POC ABG pO2 VBG pH Sodium Potassium Chloride Carbon Dioxide BUN Creatinine Glucose POC Glucose 120 H 123 H 111 H Magnesium AST ALT Alkaline Phosphatase Total Creatine Kinase NT-Pro-B Natriuret Pep Albumin Urine WBC (Auto) Crossmatch 12/01/18 12/01/18 12/01/18 00:20 05:58 11:33 WBC RBC Hgb Hct MCH MCHC RDW Plt Count Lymph % (Auto) [place] % (Auto) Eos % (Auto) Lymph # [place] # Eos # Seg Neutrophils % Seg Neutrophils # PT INR POC ABG pH POC ABG pCO2 POC ABG pO2 VBG pH Sodium Potassium Chloride Carbon Dioxide BUN Creatinine Glucose POC Glucose 113 H 127 H 138 H Magnesium AST ALT Alkaline Phosphatase Total Creatine Kinase NT-Pro-B Natriuret Pep Albumin Urine WBC (Auto) Crossmatch 12/02/18 12/03/18 12/03/18 00:33 05:07 05:07 WBC RBC 2.93 L Hgb 8.2 L Hct 24.9 L MCH MCHC RDW 17.0 H Plt Count 470 H Lymph % (Auto) 9.3 L [place] % (Auto) 8.6 H Eos % (Auto) 5.4 H Lymph # 0.9 L [place] # Eos # 0.5 H Seg Neutrophils % 75.8 H Seg Neutrophils # PT INR POC ABG pH POC ABG pCO2 POC ABG pO2 VBG pH Sodium Potassium Chloride Carbon Dioxide BUN 30 H Creatinine 0.6 L Glucose 115 H POC Glucose 110 H Magnesium AST ALT Alkaline Phosphatase Total Creatine Kinase NT-Pro-B Natriuret Pep Albumin Urine WBC (Auto) Crossmatch 12/03/18 12/03/18 12/03/18 05:58 11:49 17:44 WBC RBC Hgb Hct MCH MCHC RDW Plt Count Lymph % (Auto) [place] % (Auto) Eos % (Auto) Lymph # [place] # Eos # Seg Neutrophils % Seg Neutrophils # PT INR POC ABG pH POC ABG pCO2 POC ABG pO2 VBG pH Sodium Potassium Chloride Carbon Dioxide BUN Creatinine Glucose POC Glucose 127 H 138 H 127 H Magnesium AST ALT Alkaline Phosphatase Total Creatine Kinase NT-Pro-B Natriuret Pep Albumin Urine WBC (Auto) Crossmatch 12/05/18 12/05/18 12/05/18 00:22 05:53 17:18 WBC RBC Hgb Hct MCH MCHC RDW Plt Count Lymph % (Auto) [place] % (Auto) Eos % (Auto) Lymph # [place] # Eos # Seg Neutrophils % Seg Neutrophils # PT INR POC ABG pH POC ABG pCO2 POC ABG pO2 VBG pH Sodium Potassium Chloride Carbon Dioxide BUN Creatinine Glucose POC Glucose 124 H 121 H 112 H Magnesium AST ALT Alkaline Phosphatase Total Creatine Kinase NT-Pro-B Natriuret Pep Albumin Urine WBC (Auto) Crossmatch 12/06/18 12/06/18 12/06/18 00:07 06:16 11:43 WBC RBC Hgb Hct MCH MCHC RDW Plt Count Lymph % (Auto) [place] % (Auto) Eos % (Auto) Lymph # [place] # Eos # Seg Neutrophils % Seg Neutrophils # PT INR POC ABG pH POC ABG pCO2 POC ABG pO2 VBG pH Sodium Potassium Chloride Carbon Dioxide BUN Creatinine Glucose POC Glucose 111 H 117 H 121 H Magnesium AST ALT Alkaline Phosphatase Total Creatine Kinase NT-Pro-B Natriuret Pep Albumin Urine WBC (Auto) Crossmatch 12/06/18 12/07/18 12/07/18 20:57 06:41 12:09 WBC RBC Hgb Hct MCH MCHC RDW Plt Count Lymph % (Auto) [place] % (Auto) Eos % (Auto) Lymph # [place] # Eos # Seg Neutrophils % Seg Neutrophils # PT INR POC ABG pH POC ABG pCO2 POC ABG pO2 VBG pH Sodium Potassium Chloride 107.2 H Carbon Dioxide BUN 27 H Creatinine 0.7 L Glucose POC Glucose 128 H 137 H Magnesium 2.50 H AST ALT Alkaline Phosphatase Total Creatine Kinase NT-Pro-B Natriuret Pep Albumin Urine WBC (Auto) Crossmatch 12/07/18 12/08/18 12/08/18 19:29 05:44 12:27 WBC RBC Hgb Hct MCH MCHC RDW Plt Count Lymph % (Auto) [place] % (Auto) Eos % (Auto) Lymph # [place] # Eos # Seg Neutrophils % Seg Neutrophils # PT INR POC ABG pH POC ABG pCO2 POC ABG pO2 VBG pH Sodium Potassium Chloride Carbon Dioxide BUN Creatinine Glucose POC Glucose 110 H 126 H 130 H Magnesium AST ALT Alkaline Phosphatase Total Creatine Kinase NT-Pro-B Natriuret Pep Albumin Urine WBC (Auto) Crossmatch 12/08/18 12/09/18 12/09/18 17:44 00:20 06:42 WBC RBC Hgb Hct MCH MCHC RDW Plt Count Lymph % (Auto) [place] % (Auto) Eos % (Auto) Lymph # [place] # Eos # Seg Neutrophils % Seg Neutrophils # PT INR POC ABG pH POC ABG pCO2 POC ABG pO2 VBG pH Sodium Potassium Chloride Carbon Dioxide BUN Creatinine Glucose POC Glucose 113 H 121 H 124 H Magnesium AST ALT Alkaline Phosphatase Total Creatine Kinase NT-Pro-B Natriuret Pep Albumin Urine WBC (Auto) Crossmatch 12/09/18 12/09/18 12/09/18 12:24 18:41 23:48 WBC RBC Hgb Hct MCH MCHC RDW Plt Count Lymph % (Auto) [place] % (Auto) Eos % (Auto) Lymph # [place] # Eos # Seg Neutrophils % Seg Neutrophils # PT INR POC ABG pH POC ABG pCO2 POC ABG pO2 VBG pH Sodium Potassium Chloride Carbon Dioxide BUN Creatinine Glucose POC Glucose 114 H 109 H 128 H Magnesium AST ALT Alkaline Phosphatase Total Creatine Kinase NT-Pro-B Natriuret Pep Albumin Urine WBC (Auto) Crossmatch 12/10/18 12/10/18 12/11/18 07:07 11:28 00:24 WBC RBC Hgb Hct MCH MCHC RDW Plt Count Lymph % (Auto) [place] % (Auto) Eos % (Auto) Lymph # [place] # Eos # Seg Neutrophils % Seg Neutrophils # PT INR POC ABG pH POC ABG pCO2 POC ABG pO2 VBG pH Sodium Potassium Chloride Carbon Dioxide BUN Creatinine Glucose POC Glucose 111 H 110 H 112 H Magnesium AST ALT Alkaline Phosphatase Total Creatine Kinase NT-Pro-B Natriuret Pep Albumin Urine WBC (Auto) Crossmatch 12/11/18 12/11/18 12/11/18 06:44 11:53 18:17 WBC RBC Hgb Hct MCH MCHC RDW Plt Count Lymph % (Auto) [place] % (Auto) Eos % (Auto) Lymph # [place] # Eos # Seg Neutrophils % Seg Neutrophils # PT INR POC ABG pH POC ABG pCO2 POC ABG pO2 VBG pH Sodium Potassium Chloride Carbon Dioxide BUN Creatinine Glucose POC Glucose 111 H 132 H 133 H Magnesium AST ALT Alkaline Phosphatase Total Creatine Kinase NT-Pro-B Natriuret Pep Albumin Urine WBC (Auto) Crossmatch 12/11/18 12/12/18 12/12/18 23:58 00:05 06:11 WBC RBC 2.85 L Hgb 7.8 L Hct 24.4 L MCH 27 L MCHC RDW 17.4 H Plt Count 459 H Lymph % (Auto) [place] % (Auto) 11.2 H Eos % (Auto) 5.4 H Lymph # [place] # 1.1 H Eos # 0.5 H Seg Neutrophils % Seg Neutrophils # PT INR POC ABG pH POC ABG pCO2 POC ABG pO2 VBG pH Sodium Potassium Chloride Carbon Dioxide BUN Creatinine Glucose POC Glucose 126 H 144 H Magnesium AST ALT Alkaline Phosphatase Total Creatine Kinase NT-Pro-B Natriuret Pep Albumin Urine WBC (Auto) Crossmatch 12/12/18 12/12/18 12/13/18 11:42 18:36 00:12 WBC RBC Hgb Hct MCH MCHC RDW Plt Count Lymph % (Auto) [place] % (Auto) Eos % (Auto) Lymph # [place] # Eos # Seg Neutrophils % Seg Neutrophils # PT INR POC ABG pH POC ABG pCO2 POC ABG pO2 VBG pH Sodium Potassium Chloride Carbon Dioxide BUN Creatinine Glucose POC Glucose 106 H 117 H 115 H Magnesium AST ALT Alkaline Phosphatase Total Creatine Kinase NT-Pro-B Natriuret Pep Albumin Urine WBC (Auto) Crossmatch 12/13/18 12/13/18 12/13/18 05:58 11:52 23:57 WBC RBC Hgb Hct MCH MCHC RDW Plt Count Lymph % (Auto) [place] % (Auto) Eos % (Auto) Lymph # [place] # Eos # Seg Neutrophils % Seg Neutrophils # PT INR POC ABG pH POC ABG pCO2 POC ABG pO2 VBG pH Sodium Potassium Chloride Carbon Dioxide BUN Creatinine Glucose POC Glucose 122 H 129 H 125 H Magnesium AST ALT Alkaline Phosphatase Total Creatine Kinase NT-Pro-B Natriuret Pep Albumin Urine WBC (Auto) Crossmatch 12/14/18 12/14/18 12/14/18 04:44 04:44 05:44 WBC RBC 2.56 L Hgb 7.2 L Hct 22.1 L MCH MCHC RDW 17.8 H Plt Count 473 H Lymph % (Auto) [place] % (Auto) 11.5 H Eos % (Auto) 4.8 H Lymph # [place] # 1.1 H Eos # Seg Neutrophils % Seg Neutrophils # PT INR POC ABG pH POC ABG pCO2 POC ABG pO2 VBG pH Sodium 151 H Potassium Chloride 116.7 H Carbon Dioxide BUN 40 H Creatinine Glucose 114 H POC Glucose 117 H Magnesium AST 80 H ALT 67 H Alkaline Phosphatase 247 H Total Creatine Kinase NT-Pro-B Natriuret Pep Albumin 1.9 L Urine WBC (Auto) Crossmatch Allied health notes reviewed: nursing
--- NOTE | 2018-12-14 14:17 | Progress Note ---
Assessment and Plan 67 YO Male Intermediate Facility Resident as [facility] with HTN, CVA, Obstructive Uropathy, Diastolic CHF, Contracture, Sacral Decubitus Ulcers, NV, DM, OA, Seizure Disorder, COPD, Dementia, BPH presents to ED for evaluation. Pt is stuporous and unable to provide history. Pt history taken from ED Staff, EMS, and SNF Staff. As per staff, the patient was found to have respiratory distress upon evaluation this morning. Pt found to have pulse oximetry in the 80's. EMS notified and patient subsequently transported to [facility] for further care and evaluation. Pt seen and evaluated in ED and found to have UTI, Sepsis, Encephalopathy as well as Acute Hypoxemic Respiratory Failure. Pt initiated on NIPPV in ED with improvement in symptoms. Pt admitted to IMCU and initiated on Sepsis protocol. Prior admission on 10/01/18 reviewed. 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 He needs to be on contact isolation. This cannot be cured with antibiotics. recommend palliative care/comfort care or hospice, family are not interested in that option, continue daptomycin , at discharge will do daptomycin 400 mg IV q day for 6 weeks until 12/16/2018 sacral pressure ulcer -infected. POA WOUND CARE CONSULT. CONTINUE ABX. Debridement done by Dr Man Amputation recommended and the daughter refused Respiratory failure Supplemental oxygen, nebulizer therapy, mgt per pulmonology Anemia of chronic disease Transfused one unit PRBC hemoglobin is stable Seizure Continue current therapy, seizure precautions. BPH Continue Chaudhary catherter Dementia supportive care DVT prophylaxis Prophylactic lovenox POOR PROGNOSIS Disposition; pending SNF placement. . Needs to be in Hospice Subjective Date of service: 12/14/18 Principal diagnosis: Severe Sepsis; Ac. Hypoxemic Resp failure; Anemia; Seizure; UTI; BPH Interval history: Same condition Objective - Constitutional Vitals: Vital Signs - 12hr 12/14/18 12/14/18 12/14/18 07:59 09:02 09:58 Temperature 99.0 F Pulse Rate 87 83 Pulse Rate [ 85 Anterior Bilateral Throughout] Respiratory 20 Rate Respiratory 16 Rate [Anterior Bilateral Throughout] Blood Pressure 122/61 123/66 O2 Sat by Pulse 96 Oximetry 12/14/18 10:02 Temperature Pulse Rate 83 Pulse Rate [ Anterior Bilateral Throughout] Respiratory Rate Respiratory Rate [Anterior Bilateral Throughout] Blood Pressure 123/66 O2 Sat by Pulse Oximetry General appearance: Present: no acute distress, well-nourished - EENT Eyes: PERRL, EOM intact ENT: hearing intact, clear oral mucosa Ears: bilateral: normal - Neck Neck: supple, normal ROM - Respiratory Respiratory effort: normal Respiratory: bilateral: CTA - Breasts Breasts: normal - Cardiovascular Rhythm: regular Heart Sounds: Present: S1 & S2. Absent: gallop, rub Extremities: pulses intact, No edema, normal color, Full ROM, abnormal (Severe decub ulcer--sacral) Extremity abnormal: other - Gastrointestinal General gastrointestinal: Present: soft, non-tender, non-distended, normal bowel sounds - Genitourinary Male genitourinary: normal - Integumentary Integumentary: clear, warm, dry - Musculoskeletal Musculoskeletal: 1, strength equal bilaterally - Neurologic Neurologic: moves all extremities - Psychiatric Psychiatric: memory intact, appropriate mood/affect, intact judgment & insight - Labs CBC & Chem 7: 12/15/18 05:13 12/15/18 05:13 Labs: Abnormal lab results 12/13/18 12/14/18 12/14/18 Range/Units 23:57 04:44 04:44 RBC 2.56 L (3.65-5.03) M/mm3 Hgb 7.2 L (11.8-15.2) gm/dl Hct 22.1 L (35.5-45.6) % RDW 17.8 H (13.2-15.2) % Plt Count 473 H (140-440) K/mm3 [place] % (Auto) 11.5 H (0.0-7.3) % Eos % (Auto) 4.8 H (0.0-4.3) % [place] # 1.1 H (0.0-0.8) K/mm3 Sodium 151 H (137-145) mmol/L Chloride 116.7 H (98-107) mmol/L BUN 40 H (9-20) mg/dL Glucose 114 H (75-100) mg/dL POC Glucose 125 H (70-105) AST 80 H (5-40) units/L ALT 67 H (7-56) units/L Alkaline Phosphatase 247 H (35-129) units/L Albumin 1.9 L (3.9-5) g/dL 12/14/18 12/14/18 Range/Units 05:44 11:29 RBC (3.65-5.03) M/mm3 Hgb (11.8-15.2) gm/dl Hct (35.5-45.6) % RDW (13.2-15.2) % Plt Count (140-440) K/mm3 [place] % (Auto) (0.0-7.3) % Eos % (Auto) (0.0-4.3) % [place] # (0.0-0.8) K/mm3 Sodium (137-145) mmol/L Chloride (98-107) mmol/L BUN (9-20) mg/dL Glucose (75-100) mg/dL POC Glucose 117 H 115 H (70-105) AST (5-40) units/L ALT (7-56) units/L Alkaline Phosphatase (35-129) units/L Albumin (3.9-5) g/dL
[2018-12-15] MEDS: APRESOLINE PO SCH ×2 (00:32→09:17)
[2018-12-15 06:06] LABS: Basophils # (Auto) 0.1 K/mm3 (0.0-0.1); Basophils % (Auto) 0.9 % (0.0-1.8); Eosinophils # (Auto) 0.6 K/mm3 (0.0-0.4); Eosinophils % (Auto) 6.9 % (0.0-4.3); Hematocrit 23.1 % (35.5-45.6); Hemoglobin 7.4 gm/dl (11.8-15.2); Lymphocytes # (Auto) 1.2 K/mm3 (1.2-5.4); Lymphocytes % (Auto) 13.3 % (13.4-35.0); Mean Corpuscular HGB Conc 32 % (32-34); Mean Corpuscular Volume 86 fl (84-94); Monocytes # (Auto) 0.8 K/mm3 (0.0-0.8); Monocytes % (Auto) 9.7 % (0.0-7.3); Platelet Count 454 K/mm3 (140-440); Red Blood Count 2.68 M/mm3 (3.65-5.03); Red Cell Distribution Width 17.6 % (13.2-15.2)
[2018-12-15 06:23] LABS: Alanine Aminotransferase 78 units/L (7-56); Albumin 1.9 g/dL (3.9-5); BUN/Creatinine Ratio 49; Blood Urea Nitrogen 39 mg/dL (9-20); Calcium 9.2 mg/dL (8.4-10.2); Hemolysis Index 8
[2018-12-15] MEDS: DUONEB *Not for PRN Use IH SCH (07:09)
[2018-12-15] MEDS: VITAMIN C FEEDTUBE SCH ×2 (09:06→21:38)
[2018-12-15] MEDS: COREG PO SCH ×2 (09:06→21:37)
[2018-12-15] MEDS: LOVENOX SUB-Q SCH (09:16)
[2018-12-15] MEDS: Centrum Liq FEEDTUBE SCH (09:17)
[2018-12-15] MEDS: KEPPRA FEEDTUBE SCH ×2 (09:17→21:34)
[2018-12-15] MEDS: ZINC SULFATE PO SCH (09:17)
[2018-12-15] MEDS: MIRALAX 3350 FEEDTUBE SCH (09:17)
[2018-12-15] MEDS: SODIUM CHLORIDE FLUSH SYRINGE 10 ML IV SCH ×2 (09:18→21:38)
[2018-12-15] MEDS: NACL 0.9% IV SCH (11:09)
[2018-12-15] MEDS: DAPTOMYCIN IV SCH (11:09)
--- NOTE | 2018-12-15 12:56 | Progress Note ---
Assessment and Plan 67 YO Male [facility] Resident as [facility] with HTN, CVA, Obstructive Uropathy, Diastolic CHF, Contracture, Sacral Decubitus Ulcers, CT, DM, OA, Seizure Disorder, COPD, Dementia, BPH presents to ED for evaluation. Pt is stuporous and unable to provide history. Pt history taken from ED Staff, EMS, and SNF Staff. As per staff, the patient was found to have respiratory distress upon evaluation this morning. Pt found to have pulse oximetry in the 80's. EMS notified and patient subsequently transported to [facility] for further care and evaluation. Pt seen and evaluated in ED and found to have UTI, Sepsis, Encephalopathy as well as Acute Hypoxemic Respiratory Failure. Pt initiated on NIPPV in ED with improvement in symptoms. Pt admitted to IMCU and initiated on Sepsis protocol. Prior admission on 10/01/18 reviewed. 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 He needs to be on contact isolation. This cannot be cured with antibiotics. recommend palliative care/comfort care or hospice, family are not interested in that option, continue daptomycin , at discharge will do daptomycin 400 mg IV q day for 6 weeks until 12/16/2018 sacral pressure ulcer -infected. POA WOUND CARE CONSULT. CONTINUE ABX. Debridement done by Dr Man Amputation recommended and the daughter refused Respiratory failure Supplemental oxygen, nebulizer therapy, mgt per pulmonology Anemia of chronic disease Transfused one unit PRBC hemoglobin is stable Seizure Continue current therapy, seizure precautions. BPH Continue Chaudhary catherter Dementia supportive care DVT prophylaxis Prophylactic lovenox POOR PROGNOSIS Disposition; pending SNF placement. . Needs to be in Hospice Subjective Date of service: 12/15/18 Principal diagnosis: Severe Sepsis; Ac. Hypoxemic Resp failure; Anemia; Seizure; UTI; BPH Interval history: Same condition Objective - Constitutional Vitals: Vital Signs - 12hr 12/15/18 12/15/18 12/15/18 03:49 07:10 07:30 Temperature 98.2 F 98.7 F Pulse Rate 83 79 Pulse Rate [ 82 Anterior Bilateral Throughout] Respiratory 20 18 Rate Respiratory 18 Rate [Anterior Bilateral Throughout] Blood Pressure 136/66 117/58 O2 Sat by Pulse 94 96 Oximetry 12/15/18 12/15/18 09:06 09:17 Temperature Pulse Rate 83 83 Pulse Rate [ Anterior Bilateral Throughout] Respiratory Rate Respiratory Rate [Anterior Bilateral Throughout] Blood Pressure 118/65 116/65 O2 Sat by Pulse Oximetry General appearance: Present: no acute distress, well-nourished - EENT Eyes: PERRL, EOM intact ENT: hearing intact, clear oral mucosa Ears: bilateral: normal - Neck Neck: supple, normal ROM - Respiratory Respiratory effort: normal Respiratory: bilateral: CTA - Breasts Breasts: normal - Cardiovascular Heart rate: 78 Rhythm: regular Heart Sounds: Present: S1 & S2. Absent: gallop, rub Extremities: pulses intact, No edema, normal color, Full ROM, abnormal (Severe decub ulcer) - Gastrointestinal General gastrointestinal: Present: soft, non-tender, non-distended, normal bowel sounds - Genitourinary Male genitourinary: normal - Integumentary Integumentary: clear, warm, dry - Musculoskeletal Musculoskeletal: 1, strength equal bilaterally - Neurologic Neurologic: moves all extremities - Psychiatric Psychiatric: memory intact, appropriate mood/affect, intact judgment & insight - Labs CBC & Chem 7: 12/15/18 05:13 12/15/18 05:13 Labs: Abnormal lab results 12/15/18 12/15/18 12/15/18 Range/Units 00:01 05:13 05:13 RBC 2.68 L (3.65-5.03) M/mm3 Hgb 7.4 L (11.8-15.2) gm/dl Hct 23.1 L (35.5-45.6) % RDW 17.6 H (13.2-15.2) % Plt Count 454 H (140-440) K/mm3 Lymph % (Auto) 13.3 L (13.4-35.0) % [place] % (Auto) 9.7 H (0.0-7.3) % Eos % (Auto) 6.9 H (0.0-4.3) % Eos # 0.6 H (0.0-0.4) K/mm3 Sodium 151 H (137-145) mmol/L Chloride 116.4 H (98-107) mmol/L BUN 39 H (9-20) mg/dL Glucose 110 H (75-100) mg/dL POC Glucose 113 H (70-105) AST 85 H (5-40) units/L ALT 78 H (7-56) units/L Alkaline Phosphatase 255 H (35-129) units/L Albumin 1.9 L (3.9-5) g/dL 12/15/18 12/15/18 Range/Units 06:31 11:31 RBC (3.65-5.03) M/mm3 Hgb (11.8-15.2) gm/dl Hct (35.5-45.6) % RDW (13.2-15.2) % Plt Count (140-440) K/mm3 Lymph % (Auto) (13.4-35.0) % [place] % (Auto) (0.0-7.3) % Eos % (Auto) (0.0-4.3) % Eos # (0.0-0.4) K/mm3 Sodium (137-145) mmol/L Chloride (98-107) mmol/L BUN (9-20) mg/dL Glucose (75-100) mg/dL POC Glucose 130 H 127 H (70-105) AST (5-40) units/L ALT (7-56) units/L Alkaline Phosphatase (35-129) units/L Albumin (3.9-5) g/dL
--- NOTE | 2018-12-15 15:12 | Progress Note ---
Assessment and Plan Severe Sepsis Acute Hypoxemic Respiratory failure Anemia of chronic disease Seizure UTI (urinary tract infection) BPH Dementia sacral pressure ulcer -infected. POA - continue prn supplemental oxygen as needed to keep O2 sat's > 90% - continue bronchodilators with pulmonary hygiene per RT (will stop scheduled treatments) - continue aspiration precautions - complete antibiotics per ID rec's (On Daptomycin) - prn BIPAP for increased work of breathing - prn CXR's - continue Coreg re: SVT - continue AED's for seizure control (Keppra) - continue fall precautions & neurochecks - enteral nutrition as tolerated - continue wound care per WCT - continue bright catheter re: Obstructive Uropathy - GI & VTE prophylaxis - continue mobility protocol for pressure ulcer prophylaxis - continue other care per attending / other consultants ..... discharge planning ongoing concurrently ...... remains Full CODE ... re-evaluate in am & prn Subjective Date of service: 12/15/18 Principal diagnosis: Severe Sepsis; Ac. Hypoxemic Resp failure; Anemia; Seizure; UTI; BPH Interval history: Patient is seen today for: Severe Sepsis; Acute Hypoxemic Respiratory failure; Anemia of chronic disease; Seizure; UTI (urinary tract infection); BPH; Dementia; sacral pressure ulcer -infected. POA Seen and examined at bedside; 24-hour events reviewed; nursing and respiratory care staff consulted; no adverse overnight events reported to me; resting peacefully in bed; on supplemental oxygen for a short while; No emesis or overt aspiration; mild cognitive dysfunction is persistent Objective Vital Signs - 12hr 12/15/18 12/15/18 12/15/18 03:49 07:10 07:30 Temperature 98.2 F 98.7 F Pulse Rate 83 79 Pulse Rate [ 82 Anterior Bilateral Throughout] Respiratory 20 18 Rate Respiratory 18 Rate [Anterior Bilateral Throughout] Blood Pressure 136/66 117/58 O2 Sat by Pulse 94 96 Oximetry 12/15/18 12/15/18 12/15/18 09:06 09:17 13:11 Temperature 99.1 F Pulse Rate 83 83 82 Pulse Rate [ Anterior Bilateral Throughout] Respiratory 18 Rate Respiratory Rate [Anterior Bilateral Throughout] Blood Pressure 118/65 116/65 139/60 O2 Sat by Pulse 97 Oximetry Constitutional: no acute distress, alert, other (elderly looking AAM, normocephalic with mildly increased resp effort at rest) Eyes: non-icteric ENT: oropharynx moist Neck: no lymphadenopathy, no JVD, other (mild stiffness / contracture) Effort: normal Ascultation: Bilateral: clear, diminished breath sounds Percussion: Bilateral: not dull Cardiovascular: regular rate and rhythm Gastrointestinal: normoactive bowel sounds, soft, non-tender, non-distended Integumentary: rash Extremities: no cyanosis, no edema, pulses normal, other (Patient has pressure ulcer at multiple areas, including sacral area.) Neurologic: non-focal exam, pupils equal and round, CN II-XII normal, other (+ contractures) Psychiatric: mood appropriate, affect normal CBC and BMP: 12/25/18 05:50 12/24/18 05:59 ABG, PT/INR, D-dimer: ABG POC ABG pH 7.494 (7.35-7.45) H 11/01/18 15:27 POC ABG pCO2 34.5 (35-45) L 11/01/18 15:27 POC ABG pO2 139 (80-105) H 11/01/18 15:27 POC ABG HCO3 26.5 (22-26 mml/L) 11/01/18 15:27 POC ABG Total CO2 28 (23-27mmol/L) 11/01/18 15:27 POC ABG O2 Sat 99 11/01/18 15:27 PT/INR, D-dimer PT 16.3 Sec. (12.2-14.9) H 11/01/18 14:50 INR 1.35 (0.87-1.13) H 11/01/18 14:50 Abnormal lab findings: Abnormal Labs 11/01/18 11/01/18 11/01/18 14:50 14:50 14:50 WBC 15.3 H RBC 2.76 L Hgb 7.9 L Hct 23.5 L MCH MCHC RDW 18.3 H Plt Count 567 H Lymph % (Auto) 6.5 L [place] % (Auto) 8.5 H Eos % (Auto) Lymph # 1.0 L [place] # 1.3 H Eos # Seg Neutrophils % 83.4 H Seg Neutrophils # 12.7 H PT 16.3 H INR 1.35 H POC ABG pH POC ABG pCO2 POC ABG pO2 VBG pH Sodium Potassium Chloride Carbon Dioxide BUN 49 H Creatinine Glucose 132 H POC Glucose Magnesium AST 90 H ALT 77 H Alkaline Phosphatase 350 H Total Creatine Kinase NT-Pro-B Natriuret Pep Albumin 1.6 L Urine WBC (Auto) Crossmatch 11/01/18 11/01/18 11/01/18 14:50 14:50 15:27 WBC RBC Hgb Hct MCH MCHC RDW Plt Count Lymph % (Auto) [place] % (Auto) Eos % (Auto) Lymph # [place] # Eos # Seg Neutrophils % Seg Neutrophils # PT INR POC ABG pH 7.494 H POC ABG pCO2 34.5 L POC ABG pO2 139 H VBG pH 7.499 H Sodium Potassium Chloride Carbon Dioxide BUN Creatinine Glucose POC Glucose Magnesium AST ALT Alkaline Phosphatase Total Creatine Kinase NT-Pro-B Natriuret Pep 6776 H Albumin Urine WBC (Auto) Crossmatch 11/01/18 11/03/18 11/03/18 15:57 03:41 03:41 WBC 12.8 H RBC 2.55 L Hgb 6.9 L Hct 22.2 L MCH 27 L MCHC 31 L RDW 17.9 H Plt Count 519 H Lymph % (Auto) [place] % (Auto) Eos % (Auto) Lymph # [place] # Eos # Seg Neutrophils % Seg Neutrophils # PT INR POC ABG pH POC ABG pCO2 POC ABG pO2 VBG pH Sodium 147 H Potassium Chloride 110.3 H Carbon Dioxide BUN 55 H Creatinine Glucose POC Glucose Magnesium AST ALT Alkaline Phosphatase Total Creatine Kinase NT-Pro-B Natriuret Pep Albumin Urine WBC (Auto) > 182.0 H Crossmatch 11/03/18 11/04/18 11/04/18 12:51 05:12 05:12 WBC 11.5 H RBC 2.94 L Hgb 8.3 L Hct 25.3 L MCH MCHC RDW 17.3 H Plt Count 514 H Lymph % (Auto) [place] % (Auto) Eos % (Auto) Lymph # [place] # Eos # Seg Neutrophils % Seg Neutrophils # PT INR POC ABG pH POC ABG pCO2 POC ABG pO2 VBG pH Sodium 147 H Potassium Chloride 112.4 H Carbon Dioxide BUN 52 H Creatinine Glucose POC Glucose Magnesium AST ALT Alkaline Phosphatase Total Creatine Kinase NT-Pro-B Natriuret Pep Albumin Urine WBC (Auto) Crossmatch See Detail 11/05/18 11/05/18 11/06/18 04:50 04:50 05:42 WBC RBC 3.03 L 2.80 L Hgb 8.7 L 7.9 L Hct 26.6 L 24.7 L MCH MCHC RDW 17.1 H 17.0 H Plt Count 502 H 478 H Lymph % (Auto) 10.4 L [place] % (Auto) 8.6 H Eos % (Auto) 4.7 H Lymph # 1.0 L [place] # Eos # 0.5 H Seg Neutrophils % 75.6 H Seg Neutrophils # PT INR POC ABG pH POC ABG pCO2 POC ABG pO2 VBG pH Sodium 149 H Potassium Chloride 114.4 H Carbon Dioxide 21 L BUN 50 H Creatinine Glucose 108 H POC Glucose Magnesium AST ALT Alkaline Phosphatase Total Creatine Kinase NT-Pro-B Natriuret Pep Albumin Urine WBC (Auto) Crossmatch 11/06/18 11/11/18 11/12/18 05:42 18:54 00:22 WBC RBC Hgb Hct MCH MCHC RDW Plt Count Lymph % (Auto) [place] % (Auto) Eos % (Auto) Lymph # [place] # Eos # Seg Neutrophils % Seg Neutrophils # PT INR POC ABG pH POC ABG pCO2 POC ABG pO2 VBG pH Sodium 149 H Potassium Chloride 113.4 H Carbon Dioxide BUN 50 H Creatinine Glucose 121 H POC Glucose 114 H 123 H Magnesium AST ALT Alkaline Phosphatase Total Creatine Kinase NT-Pro-B Natriuret Pep Albumin Urine WBC (Auto) Crossmatch 11/12/18 11/12/18 11/13/18 06:49 11:35 06:34 WBC RBC Hgb Hct MCH MCHC RDW Plt Count Lymph % (Auto) [place] % (Auto) Eos % (Auto) Lymph # [place] # Eos # Seg Neutrophils % Seg Neutrophils # PT INR POC ABG pH POC ABG pCO2 POC ABG pO2 VBG pH Sodium Potassium Chloride Carbon Dioxide BUN Creatinine Glucose POC Glucose 129 H 123 H 128 H Magnesium AST ALT Alkaline Phosphatase Total Creatine Kinase NT-Pro-B Natriuret Pep Albumin Urine WBC (Auto) Crossmatch 11/13/18 11/13/18 11/13/18 09:26 09:26 15:13 WBC RBC 3.08 L Hgb 8.6 L Hct 27.3 L MCH MCHC 31 L RDW 18.3 H Plt Count 504 H Lymph % (Auto) 11.7 L [place] % (Auto) 7.5 H Eos % (Auto) 7.0 H Lymph # [place] # Eos # 0.7 H Seg Neutrophils % 72.9 H Seg Neutrophils # PT INR POC ABG pH POC ABG pCO2 POC ABG pO2 VBG pH Sodium 153 H Potassium 6.3 H* 5.8 H Chloride 122.3 H Carbon Dioxide 21 L BUN 38 H Creatinine Glucose 112 H POC Glucose Magnesium AST ALT Alkaline Phosphatase Total Creatine Kinase NT-Pro-B Natriuret Pep Albumin Urine WBC (Auto) Crossmatch 11/13/18 11/13/18 11/14/18 22:10 23:45 13:17 WBC RBC Hgb Hct MCH MCHC RDW Plt Count Lymph % (Auto) [place] % (Auto) Eos % (Auto) Lymph # [place] # Eos # Seg Neutrophils % Seg Neutrophils # PT INR POC ABG pH POC ABG pCO2 POC ABG pO2 VBG pH Sodium 155 H Potassium 5.3 H Chloride 122.3 H Carbon Dioxide BUN 35 H Creatinine Glucose 113 H POC Glucose 111 H 142 H Magnesium AST ALT Alkaline Phosphatase Total Creatine Kinase NT-Pro-B Natriuret Pep Albumin Urine WBC (Auto) Crossmatch 11/14/18 11/15/18 11/15/18 19:08 00:31 06:45 WBC RBC Hgb Hct MCH MCHC RDW Plt Count Lymph % (Auto) [place] % (Auto) Eos % (Auto) Lymph # [place] # Eos # Seg Neutrophils % Seg Neutrophils # PT INR POC ABG pH POC ABG pCO2 POC ABG pO2 VBG pH Sodium Potassium Chloride Carbon Dioxide BUN Creatinine Glucose POC Glucose 116 H 125 H 131 H Magnesium AST ALT Alkaline Phosphatase Total Creatine Kinase NT-Pro-B Natriuret Pep Albumin Urine WBC (Auto) Crossmatch 11/15/18 11/15/18 11/15/18 07:13 07:13 19:03 WBC 13.2 H RBC 2.81 L Hgb 7.8 L Hct 24.5 L MCH MCHC RDW 18.2 H Plt Count 454 H Lymph % (Auto) 9.0 L [place] % (Auto) 7.5 H Eos % (Auto) Lymph # [place] # 1.0 H Eos # 0.5 H Seg Neutrophils % 78.8 H Seg Neutrophils # 10.4 H PT INR POC ABG pH POC ABG pCO2 POC ABG pO2 VBG pH Sodium 149 H Potassium 5.2 H Chloride 117.2 H Carbon Dioxide BUN 38 H Creatinine Glucose 114 H POC Glucose 141 H Magnesium AST ALT Alkaline Phosphatase Total Creatine Kinase NT-Pro-B Natriuret Pep Albumin Urine WBC (Auto) Crossmatch 11/16/18 11/16/18 11/16/18 01:15 01:15 06:45 WBC RBC Hgb Hct MCH MCHC RDW Plt Count Lymph % (Auto) [place] % (Auto) Eos % (Auto) Lymph # [place] # Eos # Seg Neutrophils % Seg Neutrophils # PT INR POC ABG pH POC ABG pCO2 POC ABG pO2 VBG pH Sodium Potassium 5.3 H Chloride Carbon Dioxide BUN Creatinine Glucose POC Glucose 129 H Magnesium 2.60 H AST ALT Alkaline Phosphatase Total Creatine Kinase NT-Pro-B Natriuret Pep Albumin Urine WBC (Auto) Crossmatch 11/16/18 11/16/18 11/17/18 13:20 18:02 00:16 WBC RBC Hgb Hct MCH MCHC RDW Plt Count Lymph % (Auto) [place] % (Auto) Eos % (Auto) Lymph # [place] # Eos # Seg Neutrophils % Seg Neutrophils # PT INR POC ABG pH POC ABG pCO2 POC ABG pO2 VBG pH Sodium Potassium Chloride Carbon Dioxide BUN Creatinine Glucose POC Glucose 130 H 127 H 120 H Magnesium AST ALT Alkaline Phosphatase Total Creatine Kinase NT-Pro-B Natriuret Pep Albumin Urine WBC (Auto) Crossmatch 11/17/18 11/17/18 11/17/18 05:48 08:02 08:02 WBC RBC Hgb 7.5 L Hct 23.5 L MCH MCHC RDW Plt Count Lymph % (Auto) [place] % (Auto) Eos % (Auto) Lymph # [place] # Eos # Seg Neutrophils % Seg Neutrophils # PT INR POC ABG pH POC ABG pCO2 POC ABG pO2 VBG pH Sodium Potassium Chloride 110.1 H Carbon Dioxide 21 L BUN 38 H Creatinine Glucose 121 H POC Glucose 130 H Magnesium AST ALT Alkaline Phosphatase Total Creatine Kinase NT-Pro-B Natriuret Pep Albumin Urine WBC (Auto) Crossmatch 11/17/18 11/17/18 11/18/18 12:17 16:48 06:00 WBC RBC Hgb Hct MCH MCHC RDW Plt Count Lymph % (Auto) [place] % (Auto) Eos % (Auto) Lymph # [place] # Eos # Seg Neutrophils % Seg Neutrophils # PT INR POC ABG pH POC ABG pCO2 POC ABG pO2 VBG pH Sodium Potassium Chloride Carbon Dioxide BUN Creatinine Glucose POC Glucose 140 H 120 H 137 H Magnesium AST ALT Alkaline Phosphatase Total Creatine Kinase NT-Pro-B Natriuret Pep Albumin Urine WBC (Auto) Crossmatch 11/19/18 11/19/18 11/19/18 00:20 05:35 06:11 WBC RBC Hgb Hct MCH MCHC RDW Plt Count Lymph % (Auto) [place] % (Auto) Eos % (Auto) Lymph # [place] # Eos # Seg Neutrophils % Seg Neutrophils # PT INR POC ABG pH POC ABG pCO2 POC ABG pO2 VBG pH Sodium Potassium Chloride Carbon Dioxide BUN Creatinine Glucose POC Glucose 111 H 126 H Magnesium AST ALT Alkaline Phosphatase Total Creatine Kinase 53 L NT-Pro-B Natriuret Pep Albumin Urine WBC (Auto) Crossmatch 11/19/18 11/19/18 11/20/18 11:37 23:43 06:52 WBC RBC Hgb Hct MCH MCHC RDW Plt Count Lymph % (Auto) [place] % (Auto) Eos % (Auto) Lymph # [place] # Eos # Seg Neutrophils % Seg Neutrophils # PT INR POC ABG pH POC ABG pCO2 POC ABG pO2 VBG pH Sodium Potassium Chloride Carbon Dioxide BUN Creatinine Glucose POC Glucose 139 H 145 H 125 H Magnesium AST ALT Alkaline Phosphatase Total Creatine Kinase NT-Pro-B Natriuret Pep Albumin Urine WBC (Auto) Crossmatch 11/20/18 11/20/18 11/20/18 09:55 09:55 11:49 WBC RBC 3.04 L Hgb 8.4 L Hct 26.1 L MCH MCHC RDW 17.5 H Plt Count Lymph % (Auto) [place] % (Auto) Eos % (Auto) Lymph # [place] # Eos # Seg Neutrophils % Seg Neutrophils # PT INR POC ABG pH POC ABG pCO2 POC ABG pO2 VBG pH Sodium 149 H Potassium Chloride 114.5 H Carbon Dioxide 21 L BUN 35 H Creatinine Glucose 127 H POC Glucose 150 H Magnesium AST ALT Alkaline Phosphatase Total Creatine Kinase NT-Pro-B Natriuret Pep Albumin Urine WBC (Auto) Crossmatch 11/20/18 11/20/18 11/21/18 18:02 23:49 06:14 WBC RBC Hgb Hct MCH MCHC RDW Plt Count Lymph % (Auto) [place] % (Auto) Eos % (Auto) Lymph # [place] # Eos # Seg Neutrophils % Seg Neutrophils # PT INR POC ABG pH POC ABG pCO2 POC ABG pO2 VBG pH Sodium Potassium Chloride Carbon Dioxide BUN Creatinine Glucose POC Glucose 131 H 137 H 133 H Magnesium AST ALT Alkaline Phosphatase Total Creatine Kinase NT-Pro-B Natriuret Pep Albumin Urine WBC (Auto) Crossmatch 11/21/18 11/21/18 11/21/18 10:00 12:09 18:04 WBC RBC Hgb Hct MCH MCHC RDW Plt Count Lymph % (Auto) [place] % (Auto) Eos % (Auto) Lymph # [place] # Eos # Seg Neutrophils % Seg Neutrophils # PT INR POC ABG pH POC ABG pCO2 POC ABG pO2 VBG pH Sodium Potassium Chloride 110.6 H Carbon Dioxide BUN 31 H Creatinine Glucose 119 H POC Glucose 116 H 126 H Magnesium AST ALT Alkaline Phosphatase Total Creatine Kinase NT-Pro-B Natriuret Pep Albumin Urine WBC (Auto) Crossmatch 11/22/18 11/22/18 11/22/18 00:14 05:47 06:23 WBC RBC Hgb Hct MCH MCHC RDW Plt Count Lymph % (Auto) [place] % (Auto) Eos % (Auto) Lymph # [place] # Eos # Seg Neutrophils % Seg Neutrophils # PT INR POC ABG pH POC ABG pCO2 POC ABG pO2 VBG pH Sodium Potassium Chloride 107.6 H Carbon Dioxide BUN 32 H Creatinine 0.7 L Glucose 116 H POC Glucose 122 H 119 H Magnesium AST ALT Alkaline Phosphatase Total Creatine Kinase NT-Pro-B Natriuret Pep Albumin Urine WBC (Auto) Crossmatch 11/22/18 11/22/18 11/22/18 08:40 12:19 17:39 WBC RBC Hgb Hct MCH MCHC RDW Plt Count Lymph % (Auto) [place] % (Auto) Eos % (Auto) Lymph # [place] # Eos # Seg Neutrophils % Seg Neutrophils # PT INR POC ABG pH POC ABG pCO2 POC ABG pO2 VBG pH Sodium Potassium Chloride Carbon Dioxide BUN Creatinine Glucose POC Glucose 150 H 111 H 108 H Magnesium AST ALT Alkaline Phosphatase Total Creatine Kinase NT-Pro-B Natriuret Pep Albumin Urine WBC (Auto) Crossmatch 11/23/18 11/23/18 11/23/18 00:36 05:37 05:56 WBC RBC Hgb Hct MCH MCHC RDW Plt Count Lymph % (Auto) [place] % (Auto) Eos % (Auto) Lymph # [place] # Eos # Seg Neutrophils % Seg Neutrophils # PT INR POC ABG pH POC ABG pCO2 POC ABG pO2 VBG pH Sodium 136 L Potassium Chloride Carbon Dioxide BUN 30 H Creatinine 0.7 L Glucose 103 H POC Glucose 125 H 122 H Magnesium 2.50 H AST ALT Alkaline Phosphatase Total Creatine Kinase NT-Pro-B Natriuret Pep Albumin Urine WBC (Auto) Crossmatch 11/23/18 11/23/18 11/23/18 11:56 17:39 23:40 WBC RBC Hgb Hct MCH MCHC RDW Plt Count Lymph % (Auto) [place] % (Auto) Eos % (Auto) Lymph # [place] # Eos # Seg Neutrophils % Seg Neutrophils # PT INR POC ABG pH POC ABG pCO2 POC ABG pO2 VBG pH Sodium Potassium Chloride Carbon Dioxide BUN Creatinine Glucose POC Glucose 121 H 113 H 117 H Magnesium AST ALT Alkaline Phosphatase Total Creatine Kinase NT-Pro-B Natriuret Pep Albumin Urine WBC (Auto) Crossmatch 11/24/18 11/24/18 11/24/18 05:13 12:00 18:13 WBC RBC Hgb Hct MCH MCHC RDW Plt Count Lymph % (Auto) [place] % (Auto) Eos % (Auto) Lymph # [place] # Eos # Seg Neutrophils % Seg Neutrophils # PT INR POC ABG pH POC ABG pCO2 POC ABG pO2 VBG pH Sodium Potassium Chloride Carbon Dioxide BUN Creatinine Glucose POC Glucose 143 H 123 H 124 H Magnesium AST ALT Alkaline Phosphatase Total Creatine Kinase NT-Pro-B Natriuret Pep Albumin Urine WBC (Auto) Crossmatch 11/24/18 11/25/18 11/25/18 23:34 05:25 05:25 WBC RBC 2.48 L Hgb 6.8 L Hct 21.2 L MCH MCHC RDW 17.7 H Plt Count Lymph % (Auto) [place] % (Auto) Eos % (Auto) Lymph # [place] # Eos # Seg Neutrophils % Seg Neutrophils # PT INR POC ABG pH POC ABG pCO2 POC ABG pO2 VBG pH Sodium Potassium Chloride 108.8 H Carbon Dioxide BUN 30 H Creatinine 0.7 L Glucose 112 H POC Glucose 115 H Magnesium AST ALT Alkaline Phosphatase Total Creatine Kinase NT-Pro-B Natriuret Pep Albumin Urine WBC (Auto) Crossmatch 11/25/18 11/25/18 11/25/18 06:46 11:15 11:28 WBC RBC Hgb 7.4 L Hct 23.0 L MCH MCHC RDW Plt Count Lymph % (Auto) [place] % (Auto) Eos % (Auto) Lymph # [place] # Eos # Seg Neutrophils % Seg Neutrophils # PT INR POC ABG pH POC ABG pCO2 POC ABG pO2 VBG pH Sodium Potassium Chloride Carbon Dioxide BUN Creatinine Glucose POC Glucose 133 H 127 H Magnesium AST ALT Alkaline Phosphatase Total Creatine Kinase NT-Pro-B Natriuret Pep Albumin Urine WBC (Auto) Crossmatch 11/25/18 11/25/18 11/25/18 15:28 17:32 23:45 WBC RBC Hgb Hct MCH MCHC RDW Plt Count Lymph % (Auto) [place] % (Auto) Eos % (Auto) Lymph # [place] # Eos # Seg Neutrophils % Seg Neutrophils # PT INR POC ABG pH POC ABG pCO2 POC ABG pO2 VBG pH Sodium Potassium Chloride Carbon Dioxide BUN Creatinine Glucose POC Glucose 115 H 130 H Magnesium AST ALT Alkaline Phosphatase Total Creatine Kinase NT-Pro-B Natriuret Pep Albumin Urine WBC (Auto) Crossmatch See Detail 11/26/18 11/26/18 11/26/18 06:13 06:20 06:20 WBC RBC 2.76 L Hgb 7.7 L Hct 23.4 L MCH MCHC RDW 17.5 H Plt Count Lymph % (Auto) [place] % (Auto) Eos % (Auto) Lymph # [place] # Eos # Seg Neutrophils % Seg Neutrophils # PT INR POC ABG pH POC ABG pCO2 POC ABG pO2 VBG pH Sodium Potassium Chloride 109.9 H Carbon Dioxide BUN 30 H Creatinine 0.6 L Glucose 121 H POC Glucose 129 H Magnesium AST ALT Alkaline Phosphatase Total Creatine Kinase NT-Pro-B Natriuret Pep Albumin Urine WBC (Auto) Crossmatch 11/26/18 11/26/18 11/27/18 12:06 16:35 06:04 WBC RBC Hgb Hct MCH MCHC RDW Plt Count Lymph % (Auto) [place] % (Auto) Eos % (Auto) Lymph # [place] # Eos # Seg Neutrophils % Seg Neutrophils # PT INR POC ABG pH POC ABG pCO2 POC ABG pO2 VBG pH Sodium Potassium Chloride Carbon Dioxide BUN Creatinine Glucose POC Glucose 139 H 107 H 126 H Magnesium AST ALT Alkaline Phosphatase Total Creatine Kinase NT-Pro-B Natriuret Pep Albumin Urine WBC (Auto) Crossmatch 11/27/18 11/27/18 11/28/18 13:14 17:47 07:03 WBC RBC Hgb Hct MCH MCHC RDW Plt Count Lymph % (Auto) [place] % (Auto) Eos % (Auto) Lymph # [place] # Eos # Seg Neutrophils % Seg Neutrophils # PT INR POC ABG pH POC ABG pCO2 POC ABG pO2 VBG pH Sodium Potassium Chloride Carbon Dioxide BUN Creatinine Glucose POC Glucose 130 H 115 H 118 H Magnesium AST ALT Alkaline Phosphatase Total Creatine Kinase NT-Pro-B Natriuret Pep Albumin Urine WBC (Auto) Crossmatch 11/28/18 11/29/18 11/29/18 11:38 00:35 04:56 WBC RBC Hgb Hct MCH MCHC RDW Plt Count Lymph % (Auto) [place] % (Auto) Eos % (Auto) Lymph # [place] # Eos # Seg Neutrophils % Seg Neutrophils # PT INR POC ABG pH POC ABG pCO2 POC ABG pO2 VBG pH Sodium Potassium Chloride Carbon Dioxide BUN Creatinine Glucose POC Glucose 126 H 107 H Magnesium AST ALT Alkaline Phosphatase Total Creatine Kinase 50 L NT-Pro-B Natriuret Pep Albumin Urine WBC (Auto) Crossmatch 11/29/18 11/29/18 11/29/18 05:49 11:46 18:17 WBC RBC Hgb Hct MCH MCHC RDW Plt Count Lymph % (Auto) [place] % (Auto) Eos % (Auto) Lymph # [place] # Eos # Seg Neutrophils % Seg Neutrophils # PT INR POC ABG pH POC ABG pCO2 POC ABG pO2 VBG pH Sodium Potassium Chloride Carbon Dioxide BUN Creatinine Glucose POC Glucose 128 H 140 H 115 H Magnesium AST ALT Alkaline Phosphatase Total Creatine Kinase NT-Pro-B Natriuret Pep Albumin Urine WBC (Auto) Crossmatch 11/30/18 11/30/18 11/30/18 00:00 03:30 03:30 WBC RBC 2.97 L Hgb 8.1 L Hct 25.5 L MCH 27 L MCHC RDW 17.7 H Plt Count Lymph % (Auto) 9.2 L [place] % (Auto) 10.0 H Eos % (Auto) 4.6 H Lymph # 1.0 L [place] # 1.1 H Eos # 0.5 H Seg Neutrophils % 75.6 H Seg Neutrophils # 8.4 H PT INR POC ABG pH POC ABG pCO2 POC ABG pO2 VBG pH Sodium Potassium Chloride Carbon Dioxide BUN 31 H Creatinine 0.7 L Glucose POC Glucose 120 H Magnesium AST ALT Alkaline Phosphatase Total Creatine Kinase NT-Pro-B Natriuret Pep Albumin Urine WBC (Auto) Crossmatch 11/30/18 11/30/18 11/30/18 06:54 11:45 16:59 WBC RBC Hgb Hct MCH MCHC RDW Plt Count Lymph % (Auto) [place] % (Auto) Eos % (Auto) Lymph # [place] # Eos # Seg Neutrophils % Seg Neutrophils # PT INR POC ABG pH POC ABG pCO2 POC ABG pO2 VBG pH Sodium Potassium Chloride Carbon Dioxide BUN Creatinine Glucose POC Glucose 120 H 123 H 111 H Magnesium AST ALT Alkaline Phosphatase Total Creatine Kinase NT-Pro-B Natriuret Pep Albumin Urine WBC (Auto) Crossmatch 12/01/18 12/01/18 12/01/18 00:20 05:58 11:33 WBC RBC Hgb Hct MCH MCHC RDW Plt Count Lymph % (Auto) [place] % (Auto) Eos % (Auto) Lymph # [place] # Eos # Seg Neutrophils % Seg Neutrophils # PT INR POC ABG pH POC ABG pCO2 POC ABG pO2 VBG pH Sodium Potassium Chloride Carbon Dioxide BUN Creatinine Glucose POC Glucose 113 H 127 H 138 H Magnesium AST ALT Alkaline Phosphatase Total Creatine Kinase NT-Pro-B Natriuret Pep Albumin Urine WBC (Auto) Crossmatch 12/02/18 12/03/18 12/03/18 00:33 05:07 05:07 WBC RBC 2.93 L Hgb 8.2 L Hct 24.9 L MCH MCHC RDW 17.0 H Plt Count 470 H Lymph % (Auto) 9.3 L [place] % (Auto) 8.6 H Eos % (Auto) 5.4 H Lymph # 0.9 L [place] # Eos # 0.5 H Seg Neutrophils % 75.8 H Seg Neutrophils # PT INR POC ABG pH POC ABG pCO2 POC ABG pO2 VBG pH Sodium Potassium Chloride Carbon Dioxide BUN 30 H Creatinine 0.6 L Glucose 115 H POC Glucose 110 H Magnesium AST ALT Alkaline Phosphatase Total Creatine Kinase NT-Pro-B Natriuret Pep Albumin Urine WBC (Auto) Crossmatch 12/03/18 12/03/18 12/03/18 05:58 11:49 17:44 WBC RBC Hgb Hct MCH MCHC RDW Plt Count Lymph % (Auto) [place] % (Auto) Eos % (Auto) Lymph # [place] # Eos # Seg Neutrophils % Seg Neutrophils # PT INR POC ABG pH POC ABG pCO2 POC ABG pO2 VBG pH Sodium Potassium Chloride Carbon Dioxide BUN Creatinine Glucose POC Glucose 127 H 138 H 127 H Magnesium AST ALT Alkaline Phosphatase Total Creatine Kinase NT-Pro-B Natriuret Pep Albumin Urine WBC (Auto) Crossmatch 12/05/18 12/05/18 12/05/18 00:22 05:53 17:18 WBC RBC Hgb Hct MCH MCHC RDW Plt Count Lymph % (Auto) [place] % (Auto) Eos % (Auto) Lymph # [place] # Eos # Seg Neutrophils % Seg Neutrophils # PT INR POC ABG pH POC ABG pCO2 POC ABG pO2 VBG pH Sodium Potassium Chloride Carbon Dioxide BUN Creatinine Glucose POC Glucose 124 H 121 H 112 H Magnesium AST ALT Alkaline Phosphatase Total Creatine Kinase NT-Pro-B Natriuret Pep Albumin Urine WBC (Auto) Crossmatch 12/06/18 12/06/18 12/06/18 00:07 06:16 11:43 WBC RBC Hgb Hct MCH MCHC RDW Plt Count Lymph % (Auto) [place] % (Auto) Eos % (Auto) Lymph # [place] # Eos # Seg Neutrophils % Seg Neutrophils # PT INR POC ABG pH POC ABG pCO2 POC ABG pO2 VBG pH Sodium Potassium Chloride Carbon Dioxide BUN Creatinine Glucose POC Glucose 111 H 117 H 121 H Magnesium AST ALT Alkaline Phosphatase Total Creatine Kinase NT-Pro-B Natriuret Pep Albumin Urine WBC (Auto) Crossmatch 12/06/18 12/07/18 12/07/18 20:57 06:41 12:09 WBC RBC Hgb Hct MCH MCHC RDW Plt Count Lymph % (Auto) [place] % (Auto) Eos % (Auto) Lymph # [place] # Eos # Seg Neutrophils % Seg Neutrophils # PT INR POC ABG pH POC ABG pCO2 POC ABG pO2 VBG pH Sodium Potassium Chloride 107.2 H Carbon Dioxide BUN 27 H Creatinine 0.7 L Glucose POC Glucose 128 H 137 H Magnesium 2.50 H AST ALT Alkaline Phosphatase Total Creatine Kinase NT-Pro-B Natriuret Pep Albumin Urine WBC (Auto) Crossmatch 12/07/18 12/08/18 12/08/18 19:29 05:44 12:27 WBC RBC Hgb Hct MCH MCHC RDW Plt Count Lymph % (Auto) [place] % (Auto) Eos % (Auto) Lymph # [place] # Eos # Seg Neutrophils % Seg Neutrophils # PT INR POC ABG pH POC ABG pCO2 POC ABG pO2 VBG pH Sodium Potassium Chloride Carbon Dioxide BUN Creatinine Glucose POC Glucose 110 H 126 H 130 H Magnesium AST ALT Alkaline Phosphatase Total Creatine Kinase NT-Pro-B Natriuret Pep Albumin Urine WBC (Auto) Crossmatch 12/08/18 12/09/18 12/09/18 17:44 00:20 06:42 WBC RBC Hgb Hct MCH MCHC RDW Plt Count Lymph % (Auto) [place] % (Auto) Eos % (Auto) Lymph # [place] # Eos # Seg Neutrophils % Seg Neutrophils # PT INR POC ABG pH POC ABG pCO2 POC ABG pO2 VBG pH Sodium Potassium Chloride Carbon Dioxide BUN Creatinine Glucose POC Glucose 113 H 121 H 124 H Magnesium AST ALT Alkaline Phosphatase Total Creatine Kinase NT-Pro-B Natriuret Pep Albumin Urine WBC (Auto) Crossmatch 12/09/18 12/09/18 12/09/18 12:24 18:41 23:48 WBC RBC Hgb Hct MCH MCHC RDW Plt Count Lymph % (Auto) [place] % (Auto) Eos % (Auto) Lymph # [place] # Eos # Seg Neutrophils % Seg Neutrophils # PT INR POC ABG pH POC ABG pCO2 POC ABG pO2 VBG pH Sodium Potassium Chloride Carbon Dioxide BUN Creatinine Glucose POC Glucose 114 H 109 H 128 H Magnesium AST ALT Alkaline Phosphatase Total Creatine Kinase NT-Pro-B Natriuret Pep Albumin Urine WBC (Auto) Crossmatch 12/10/18 12/10/18 12/11/18 07:07 11:28 00:24 WBC RBC Hgb Hct MCH MCHC RDW Plt Count Lymph % (Auto) [place] % (Auto) Eos % (Auto) Lymph # [place] # Eos # Seg Neutrophils % Seg Neutrophils # PT INR POC ABG pH POC ABG pCO2 POC ABG pO2 VBG pH Sodium Potassium Chloride Carbon Dioxide BUN Creatinine Glucose POC Glucose 111 H 110 H 112 H Magnesium AST ALT Alkaline Phosphatase Total Creatine Kinase NT-Pro-B Natriuret Pep Albumin Urine WBC (Auto) Crossmatch 12/11/18 12/11/18 12/11/18 06:44 11:53 18:17 WBC RBC Hgb Hct MCH MCHC RDW Plt Count Lymph % (Auto) [place] % (Auto) Eos % (Auto) Lymph # [place] # Eos # Seg Neutrophils % Seg Neutrophils # PT INR POC ABG pH POC ABG pCO2 POC ABG pO2 VBG pH Sodium Potassium Chloride Carbon Dioxide BUN Creatinine Glucose POC Glucose 111 H 132 H 133 H Magnesium AST ALT Alkaline Phosphatase Total Creatine Kinase NT-Pro-B Natriuret Pep Albumin Urine WBC (Auto) Crossmatch 12/11/18 12/12/18 12/12/18 23:58 00:05 06:11 WBC RBC 2.85 L Hgb 7.8 L Hct 24.4 L MCH 27 L MCHC RDW 17.4 H Plt Count 459 H Lymph % (Auto) [place] % (Auto) 11.2 H Eos % (Auto) 5.4 H Lymph # [place] # 1.1 H Eos # 0.5 H Seg Neutrophils % Seg Neutrophils # PT INR POC ABG pH POC ABG pCO2 POC ABG pO2 VBG pH Sodium Potassium Chloride Carbon Dioxide BUN Creatinine Glucose POC Glucose 126 H 144 H Magnesium AST ALT Alkaline Phosphatase Total Creatine Kinase NT-Pro-B Natriuret Pep Albumin Urine WBC (Auto) Crossmatch 12/12/18 12/12/18 12/13/18 11:42 18:36 00:12 WBC RBC Hgb Hct MCH MCHC RDW Plt Count Lymph % (Auto) [place] % (Auto) Eos % (Auto) Lymph # [place] # Eos # Seg Neutrophils % Seg Neutrophils # PT INR POC ABG pH POC ABG pCO2 POC ABG pO2 VBG pH Sodium Potassium Chloride Carbon Dioxide BUN Creatinine Glucose POC Glucose 106 H 117 H 115 H Magnesium AST ALT Alkaline Phosphatase Total Creatine Kinase NT-Pro-B Natriuret Pep Albumin Urine WBC (Auto) Crossmatch 12/13/18 12/13/18 12/13/18 05:58 11:52 23:57 WBC RBC Hgb Hct MCH MCHC RDW Plt Count Lymph % (Auto) [place] % (Auto) Eos % (Auto) Lymph # [place] # Eos # Seg Neutrophils % Seg Neutrophils # PT INR POC ABG pH POC ABG pCO2 POC ABG pO2 VBG pH Sodium Potassium Chloride Carbon Dioxide BUN Creatinine Glucose POC Glucose 122 H 129 H 125 H Magnesium AST ALT Alkaline Phosphatase Total Creatine Kinase NT-Pro-B Natriuret Pep Albumin Urine WBC (Auto) Crossmatch 12/14/18 12/14/18 12/14/18 04:44 04:44 05:44 WBC RBC 2.56 L Hgb 7.2 L Hct 22.1 L MCH MCHC RDW 17.8 H Plt Count 473 H Lymph % (Auto) [place] % (Auto) 11.5 H Eos % (Auto) 4.8 H Lymph # [place] # 1.1 H Eos # Seg Neutrophils % Seg Neutrophils # PT INR POC ABG pH POC ABG pCO2 POC ABG pO2 VBG pH Sodium 151 H Potassium Chloride 116.7 H Carbon Dioxide BUN 40 H Creatinine Glucose 114 H POC Glucose 117 H Magnesium AST 80 H ALT 67 H Alkaline Phosphatase 247 H Total Creatine Kinase NT-Pro-B Natriuret Pep Albumin 1.9 L Urine WBC (Auto) Crossmatch 12/14/18 12/15/18 12/15/18 11:29 00:01 05:13 WBC RBC 2.68 L Hgb 7.4 L Hct 23.1 L MCH MCHC RDW 17.6 H Plt Count 454 H Lymph % (Auto) 13.3 L [place] % (Auto) 9.7 H Eos % (Auto) 6.9 H Lymph # [place] # Eos # 0.6 H Seg Neutrophils % Seg Neutrophils # PT INR POC ABG pH POC ABG pCO2 POC ABG pO2 VBG pH Sodium Potassium Chloride Carbon Dioxide BUN Creatinine Glucose POC Glucose 115 H 113 H Magnesium AST ALT Alkaline Phosphatase Total Creatine Kinase NT-Pro-B Natriuret Pep Albumin Urine WBC (Auto) Crossmatch 12/15/18 12/15/18 12/15/18 05:13 06:31 11:31 WBC RBC Hgb Hct MCH MCHC RDW Plt Count Lymph % (Auto) [place] % (Auto) Eos % (Auto) Lymph # [place] # Eos # Seg Neutrophils % Seg Neutrophils # PT INR POC ABG pH POC ABG pCO2 POC ABG pO2 VBG pH Sodium 151 H Potassium Chloride 116.4 H Carbon Dioxide BUN 39 H Creatinine Glucose 110 H POC Glucose 130 H 127 H Magnesium AST 85 H ALT 78 H Alkaline Phosphatase 255 H Total Creatine Kinase NT-Pro-B Natriuret Pep Albumin 1.9 L Urine WBC (Auto) Crossmatch Allied health notes reviewed: nursing
--- NOTE | 2018-12-16 08:56 | Progress Note ---
Assessment and Plan 67 YO Male Care Home Facility Resident as [facility] with HTN, CVA, Obstructive Uropathy, Diastolic CHF, Contracture, Sacral Decubitus Ulcers, VA, DM, OA, Seizure Disorder, COPD, Dementia, BPH presents to ED for evaluation. Pt is stuporous and unable to provide history. Pt history taken from ED Staff, EMS, and SNF Staff. As per staff, the patient was found to have respiratory distress upon evaluation this morning. Pt found to have pulse oximetry in the 80's. EMS notified and patient subsequently transported to [facility] for further care and evaluation. Pt seen and evaluated in ED and found to have UTI, Sepsis, Encephalopathy as well as Acute Hypoxemic Respiratory Failure. Pt initiated on NIPPV in ED with improvement in symptoms. Pt admitted to IMCU and initiated on Sepsis protocol. Prior admission on 10/01/18 reviewed. 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 He needs to be on contact isolation. This cannot be cured with antibiotics. recommend palliative care/comfort care or hospice, family are not interested in that option, continue daptomycin , at discharge will do daptomycin 400 mg IV q day for 6 weeks until 12/16/2018 sacral pressure ulcer -infected. POA WOUND CARE CONSULT. CONTINUE ABX. Debridement done by Dr Man Amputation recommended and the daughter refused Hypernatremia Started on D5w today Respiratory failure Supplemental oxygen, nebulizer therapy, mgt per pulmonology ANEMIA of chronic disease Transfused one unit PRBC hemoglobin is stable Transfuse as necessary Seizure Continue current therapy, seizure precautions. BPH Continue Chaudhary catherter Dementia supportive care DVT prophylaxis Prophylactic lovenox POOR PROGNOSIS Disposition; pending SNF placement. . Needs to be in Hospice Subjective Date of service: 12/16/18 Principal diagnosis: Severe Sepsis; Ac. Hypoxemic Resp failure; Anemia; Seizure; UTI; BPH Interval history: Same condition Objective - Constitutional Vitals: Vital Signs - 12hr 12/15/18 12/16/1812/16/19 21:37 02:21 08:21 Temperature 98.4 F 99.1 F Pulse Rate 83 80 91 H Respiratory 18 20 Rate Blood Pressure 117/60 146/76 139/76 O2 Sat by Pulse 95 96 Oximetry General appearance: Present: no acute distress, well-nourished - EENT Eyes: PERRL, EOM intact ENT: hearing intact, clear oral mucosa Ears: bilateral: normal - Neck Neck: supple, normal ROM - Respiratory Respiratory effort: normal Respiratory: bilateral: CTA - Breasts Breasts: normal - Cardiovascular Heart rate: 78 Rhythm: regular Heart Sounds: Present: S1 & S2. Absent: gallop, rub Extremities: no ischemia, pulses intact, No edema, normal color, Full ROM, abnormal (Severe decub ulcer) Extremity abnormal: other - Gastrointestinal General gastrointestinal: Present: soft, non-tender, non-distended, normal bowel sounds - Genitourinary Male genitourinary: normal - Integumentary Integumentary: clear, warm, dry - Musculoskeletal Musculoskeletal: 1, strength equal bilaterally - Neurologic Neurologic: moves all extremities - Psychiatric Psychiatric: memory intact, appropriate mood/affect, intact judgment & insight - Labs CBC & Chem 7: 12/15/18 05:13 12/15/18 05:13 Labs: Abnormal lab results 12/15/18 12/15/18 12/16/18 Range/Units 11:31 17:54 00:27 POC Glucose 127 H 122 H (70-105) Total Creatine Kinase 50 L (55-170) units/L 12/16/18 12/16/18 Range/Units 00:33 05:31 POC Glucose 131 H 138 H (70-105) Total Creatine Kinase (55-170) units/L
[2018-12-16] MEDS: MIRALAX 3350 FEEDTUBE SCH (09:01)
[2018-12-16] MEDS: KEPPRA FEEDTUBE SCH ×2 (09:01→22:06)
[2018-12-16] MEDS: APRESOLINE PO SCH ×2 (09:02→22:07)
[2018-12-16] MEDS: COREG PO SCH ×2 (09:04→22:07)
[2018-12-16] MEDS: ZINC SULFATE PO SCH (09:05)
[2018-12-16] MEDS: Centrum Liq FEEDTUBE SCH (09:05)
[2018-12-16] MEDS: VITAMIN C FEEDTUBE SCH ×2 (09:05→22:06)
[2018-12-16] MEDS: SODIUM CHLORIDE FLUSH SYRINGE 10 ML IV SCH ×2 (09:10→22:08)
[2018-12-16] MEDS: NACL 0.9% IV SCH (13:01)
[2018-12-16] MEDS: DAPTOMYCIN IV SCH (13:01)
[2018-12-16] MEDS: LOVENOX SUB-Q SCH (13:08)
--- NOTE | 2018-12-16 13:24 | Progress Note ---
Assessment and Plan Patient is weak and contracted and has multiple pressure wounds. Patient is sleeping and on room air at this time. No acute respiratory dis tress. O2 sat 95%. Patient is afebrile. No leukocytosis. - Patient Problems (1) Respiratory failure Current Visit: Yes Status: Acute Qualifiers: Chronicity: acute Respiratory failure complication: hypoxia Qualified Code(s): J96.01 - Acute respiratory failure with hypoxia Plan to address problem: Continue O2 supplementation 2 L via nasal canula. Albuterol and Atrovent treatment q6h. Continue SQ Levonox. Recommend GI prophylexis. (2) Seizure Current Visit: Yes Status: Acute Plan to address problem: Management as per neurologist. (3) Sepsis Current Visit: Yes Status: Acute Plan to address problem: Patient treated with Daptomycine . (4) UTI (urinary tract infection) Current Visit: Yes Status: Acute Qualifiers: Encounter type: initial encounter Plan to address problem: Patient is treated with Daptomycine . (5) ARF (acute renal failure) with tubular necrosis Current Visit: No Status: Acute Plan to address problem: Management as per Nephrology. Subjective Date of service: 12/16/18 Principal diagnosis: Severe Sepsis; Ac. Hypoxemic Resp failure; Anemia; Seizure; UTI; BPH Interval history: Patient is weak and contracted and has multiple pressure wounds. Patient is sleeping and on room air at this time. No acute respiratory distress. O2 sat 95%. Patient is afebrile. No leukocytosis. Objective Vital Signs - 12hr 12/16/18 12/16/18 12/16/18 02:21 08:21 09:02 Temperature 98.4 F 99.1 F Pulse Rate 80 91 H 90 Respiratory 18 20 Rate Blood Pressure 146/76 139/76 136/70 O2 Sat by Pulse 95 96 Oximetry 12/16/18 09:04 Temperature Pulse Rate 90 Respiratory Rate Blood Pressure 136/70 O2 Sat by Pulse Oximetry Constitutional: no acute distress, asleep Eyes: non-icteric ENT: oropharynx moist Neck: no lymphadenopathy, no JVD, other (mild stiffness / contracture) Effort: normal Ascultation: Bilateral: diminished breath sounds, rhonchi Percussion: Bilateral: not dull Cardiovascular: regular rate and rhythm Gastrointestinal: normoactive bowel sounds, soft, non-tender, non-distended Integumentary: rash Extremities: no cyanosis, no edema, pulses normal, other (Patient has pressure ulcer at multiple areas, including sacral area.) Neurologic: non-focal exam, pupils equal and round, CN II-XII normal, other (+ contractures) Psychiatric: mood appropriate, affect normal CBC and BMP: 12/15/18 05:13 12/15/18 05:13 ABG, PT/INR, D-dimer: ABG POC ABG pH 7.494 (7.35-7.45) H 11/01/18 15:27 POC ABG pCO2 34.5 (35-45) L 11/01/18 15:27 POC ABG pO2 139 (80-105) H 11/01/18 15:27 POC ABG HCO3 26.5 (22-26 mml/L) 11/01/18 15:27 POC ABG Total CO2 28 (23-27mmol/L) 11/01/18 15:27 POC ABG O2 Sat 99 11/01/18 15:27 PT/INR, D-dimer PT 16.3 Sec. (12.2-14.9) H 11/01/18 14:50 INR 1.35 (0.87-1.13) H 11/01/18 14:50 Abnormal lab findings: Abnormal Labs 11/01/18 11/01/18 11/01/18 14:50 14:50 14:50 WBC 15.3 H RBC 2.76 L Hgb 7.9 L Hct 23.5 L MCH MCHC RDW 18.3 H Plt Count 567 H Lymph % (Auto) 6.5 L Cobb % (Auto) 8.5 H Eos % (Auto) Lymph # 1.0 L Cobb # 1.3 H Eos # Seg Neutrophils % 83.4 H Seg Neutrophils # 12.7 H PT 16.3 H INR 1.35 H POC ABG pH POC ABG pCO2 POC ABG pO2 VBG pH Sodium Potassium Chloride Carbon Dioxide BUN 49 H Creatinine Glucose 132 H POC Glucose Magnesium AST 90 H ALT 77 H Alkaline Phosphatase 350 H Total Creatine Kinase NT-Pro-B Natriuret Pep Albumin 1.6 L Urine WBC (Auto) Crossmatch 11/01/18 11/01/18 11/01/18 14:50 14:50 15:27 WBC RBC Hgb Hct MCH MCHC RDW Plt Count Lymph % (Auto) Cobb % (Auto) Eos % (Auto) Lymph # Cobb # Eos # Seg Neutrophils % Seg Neutrophils # PT INR POC ABG pH 7.494 H POC ABG pCO2 34.5 L POC ABG pO2 139 H VBG pH 7.499 H Sodium Potassium Chloride Carbon Dioxide BUN Creatinine Glucose POC Glucose Magnesium AST ALT Alkaline Phosphatase Total Creatine Kinase NT-Pro-B Natriuret Pep 6776 H Albumin Urine WBC (Auto) Crossmatch 11/01/18 11/03/18 11/03/18 15:57 03:41 03:41 WBC 12.8 H RBC 2.55 L Hgb 6.9 L Hct 22.2 L MCH 27 L MCHC 31 L RDW 17.9 H Plt Count 519 H Lymph % (Auto) Cobb % (Auto) Eos % (Auto) Lymph # Cobb # Eos # Seg Neutrophils % Seg Neutrophils # PT INR POC ABG pH POC ABG pCO2 POC ABG pO2 VBG pH Sodium 147 H Potassium Chloride 110.3 H Carbon Dioxide BUN 55 H Creatinine Glucose POC Glucose Magnesium AST ALT Alkaline Phosphatase Total Creatine Kinase NT-Pro-B Natriuret Pep Albumin Urine WBC (Auto) > 182.0 H Crossmatch 11/03/18 11/04/18 11/04/18 12:51 05:12 05:12 WBC 11.5 H RBC 2.94 L Hgb 8.3 L Hct 25.3 L MCH MCHC RDW 17.3 H Plt Count 514 H Lymph % (Auto) Cobb % (Auto) Eos % (Auto) Lymph # Cobb # Eos # Seg Neutrophils % Seg Neutrophils # PT INR POC ABG pH POC ABG pCO2 POC ABG pO2 VBG pH Sodium 147 H Potassium Chloride 112.4 H Carbon Dioxide BUN 52 H Creatinine Glucose POC Glucose Magnesium AST ALT Alkaline Phosphatase Total Creatine Kinase NT-Pro-B Natriuret Pep Albumin Urine WBC (Auto) Crossmatch See Detail 11/05/18 11/05/18 11/06/18 04:50 04:50 05:42 WBC RBC 3.03 L 2.80 L Hgb 8.7 L 7.9 L Hct 26.6 L 24.7 L MCH MCHC RDW 17.1 H 17.0 H Plt Count 502 H 478 H Lymph % (Auto) 10.4 L Cobb % (Auto) 8.6 H Eos % (Auto) 4.7 H Lymph # 1.0 L Cobb # Eos # 0.5 H Seg Neutrophils % 75.6 H Seg Neutrophils # PT INR POC ABG pH POC ABG pCO2 POC ABG pO2 VBG pH Sodium 149 H Potassium Chloride 114.4 H Carbon Dioxide 21 L BUN 50 H Creatinine Glucose 108 H POC Glucose Magnesium AST ALT Alkaline Phosphatase Total Creatine Kinase NT-Pro-B Natriuret Pep Albumin Urine WBC (Auto) Crossmatch 11/06/18 11/11/18 11/12/18 05:42 18:54 00:22 WBC RBC Hgb Hct MCH MCHC RDW Plt Count Lymph % (Auto) Cobb % (Auto) Eos % (Auto) Lymph # Cobb # Eos # Seg Neutrophils % Seg Neutrophils # PT INR POC ABG pH POC ABG pCO2 POC ABG pO2 VBG pH Sodium 149 H Potassium Chloride 113.4 H Carbon Dioxide BUN 50 H Creatinine Glucose 121 H POC Glucose 114 H 123 H Magnesium AST ALT Alkaline Phosphatase Total Creatine Kinase NT-Pro-B Natriuret Pep Albumin Urine WBC (Auto) Crossmatch 11/12/18 11/12/18 11/13/18 06:49 11:35 06:34 WBC RBC Hgb Hct MCH MCHC RDW Plt Count Lymph % (Auto) Cobb % (Auto) Eos % (Auto) Lymph # Cobb # Eos # Seg Neutrophils % Seg Neutrophils # PT INR POC ABG pH POC ABG pCO2 POC ABG pO2 VBG pH Sodium Potassium Chloride Carbon Dioxide BUN Creatinine Glucose POC Glucose 129 H 123 H 128 H Magnesium AST ALT Alkaline Phosphatase Total Creatine Kinase NT-Pro-B Natriuret Pep Albumin Urine WBC (Auto) Crossmatch 11/13/18 11/13/18 11/13/18 09:26 09:26 15:13 WBC RBC 3.08 L Hgb 8.6 L Hct 27.3 L MCH MCHC 31 L RDW 18.3 H Plt Count 504 H Lymph % (Auto) 11.7 L Cobb % (Auto) 7.5 H Eos % (Auto) 7.0 H Lymph # Cobb # Eos # 0.7 H Seg Neutrophils % 72.9 H Seg Neutrophils # PT INR POC ABG pH POC ABG pCO2 POC ABG pO2 VBG pH Sodium 153 H Potassium 6.3 H* 5.8 H Chloride 122.3 H Carbon Dioxide 21 L BUN 38 H Creatinine Glucose 112 H POC Glucose Magnesium AST ALT Alkaline Phosphatase Total Creatine Kinase NT-Pro-B Natriuret Pep Albumin Urine WBC (Auto) Crossmatch 11/13/18 11/13/18 11/14/18 22:10 23:45 13:17 WBC RBC Hgb Hct MCH MCHC RDW Plt Count Lymph % (Auto) Cobb % (Auto) Eos % (Auto) Lymph # Cobb # Eos # Seg Neutrophils % Seg Neutrophils # PT INR POC ABG pH POC ABG pCO2 POC ABG pO2 VBG pH Sodium 155 H Potassium 5.3 H Chloride 122.3 H Carbon Dioxide BUN 35 H Creatinine Glucose 113 H POC Glucose 111 H 142 H Magnesium AST ALT Alkaline Phosphatase Total Creatine Kinase NT-Pro-B Natriuret Pep Albumin Urine WBC (Auto) Crossmatch 11/14/18 11/15/18 11/15/18 19:08 00:31 06:45 WBC RBC Hgb Hct MCH MCHC RDW Plt Count Lymph % (Auto) Cobb % (Auto) Eos % (Auto) Lymph # Cobb # Eos # Seg Neutrophils % Seg Neutrophils # PT INR POC ABG pH POC ABG pCO2 POC ABG pO2 VBG pH Sodium Potassium Chloride Carbon Dioxide BUN Creatinine Glucose POC Glucose 116 H 125 H 131 H Magnesium AST ALT Alkaline Phosphatase Total Creatine Kinase NT-Pro-B Natriuret Pep Albumin Urine WBC (Auto) Crossmatch 11/15/18 11/15/18 11/15/18 07:13 07:13 19:03 WBC 13.2 H RBC 2.81 L Hgb 7.8 L Hct 24.5 L MCH MCHC RDW 18.2 H Plt Count 454 H Lymph % (Auto) 9.0 L Cobb % (Auto) 7.5 H Eos % (Auto) Lymph # Cobb # 1.0 H Eos # 0.5 H Seg Neutrophils % 78.8 H Seg Neutrophils # 10.4 H PT INR POC ABG pH POC ABG pCO2 POC ABG pO2 VBG pH Sodium 149 H Potassium 5.2 H Chloride 117.2 H Carbon Dioxide BUN 38 H Creatinine Glucose 114 H POC Glucose 141 H Magnesium AST ALT Alkaline Phosphatase Total Creatine Kinase NT-Pro-B Natriuret Pep Albumin Urine WBC (Auto) Crossmatch 11/16/18 11/16/18 11/16/18 01:15 01:15 06:45 WBC RBC Hgb Hct MCH MCHC RDW Plt Count Lymph % (Auto) Cobb % (Auto) Eos % (Auto) Lymph # Cobb # Eos # Seg Neutrophils % Seg Neutrophils # PT INR POC ABG pH POC ABG pCO2 POC ABG pO2 VBG pH Sodium Potassium 5.3 H Chloride Carbon Dioxide BUN Creatinine Glucose POC Glucose 129 H Magnesium 2.60 H AST ALT Alkaline Phosphatase Total Creatine Kinase NT-Pro-B Natriuret Pep Albumin Urine WBC (Auto) Crossmatch 11/16/18 11/16/18 11/17/18 13:20 18:02 00:16 WBC RBC Hgb Hct MCH MCHC RDW Plt Count Lymph % (Auto) Cobb % (Auto) Eos % (Auto) Lymph # Cobb # Eos # Seg Neutrophils % Seg Neutrophils # PT INR POC ABG pH POC ABG pCO2 POC ABG pO2 VBG pH Sodium Potassium Chloride Carbon Dioxide BUN Creatinine Glucose POC Glucose 130 H 127 H 120 H Magnesium AST ALT Alkaline Phosphatase Total Creatine Kinase NT-Pro-B Natriuret Pep Albumin Urine WBC (Auto) Crossmatch 11/17/18 11/17/18 11/17/18 05:48 08:02 08:02 WBC RBC Hgb 7.5 L Hct 23.5 L MCH MCHC RDW Plt Count Lymph % (Auto) Cobb % (Auto) Eos % (Auto) Lymph # Cobb # Eos # Seg Neutrophils % Seg Neutrophils # PT INR POC ABG pH POC ABG pCO2 POC ABG pO2 VBG pH Sodium Potassium Chloride 110.1 H Carbon Dioxide 21 L BUN 38 H Creatinine Glucose 121 H POC Glucose 130 H Magnesium AST ALT Alkaline Phosphatase Total Creatine Kinase NT-Pro-B Natriuret Pep Albumin Urine WBC (Auto) Crossmatch 11/17/18 11/17/18 11/18/18 12:17 16:48 06:00 WBC RBC Hgb Hct MCH MCHC RDW Plt Count Lymph % (Auto) Cobb % (Auto) Eos % (Auto) Lymph # Cobb # Eos # Seg Neutrophils % Seg Neutrophils # PT INR POC ABG pH POC ABG pCO2 POC ABG pO2 VBG pH Sodium Potassium Chloride Carbon Dioxide BUN Creatinine Glucose POC Glucose 140 H 120 H 137 H Magnesium AST ALT Alkaline Phosphatase Total Creatine Kinase NT-Pro-B Natriuret Pep Albumin Urine WBC (Auto) Crossmatch 11/19/18 11/19/18 11/19/18 00:20 05:35 06:11 WBC RBC Hgb Hct MCH MCHC RDW Plt Count Lymph % (Auto) Cobb % (Auto) Eos % (Auto) Lymph # Cobb # Eos # Seg Neutrophils % Seg Neutrophils # PT INR POC ABG pH POC ABG pCO2 POC ABG pO2 VBG pH Sodium Potassium Chloride Carbon Dioxide BUN Creatinine Glucose POC Glucose 111 H 126 H Magnesium AST ALT Alkaline Phosphatase Total Creatine Kinase 53 L NT-Pro-B Natriuret Pep Albumin Urine WBC (Auto) Crossmatch 11/19/18 11/19/18 11/20/18 11:37 23:43 06:52 WBC RBC Hgb Hct MCH MCHC RDW Plt Count Lymph % (Auto) Cobb % (Auto) Eos % (Auto) Lymph # Cobb # Eos # Seg Neutrophils % Seg Neutrophils # PT INR POC ABG pH POC ABG pCO2 POC ABG pO2 VBG pH Sodium Potassium Chloride Carbon Dioxide BUN Creatinine Glucose POC Glucose 139 H 145 H 125 H Magnesium AST ALT Alkaline Phosphatase Total Creatine Kinase NT-Pro-B Natriuret Pep Albumin Urine WBC (Auto) Crossmatch 11/20/18 11/20/18 11/20/18 09:55 09:55 11:49 WBC RBC 3.04 L Hgb 8.4 L Hct 26.1 L MCH MCHC RDW 17.5 H Plt Count Lymph % (Auto) Cobb % (Auto) Eos % (Auto) Lymph # Cobb # Eos # Seg Neutrophils % Seg Neutrophils # PT INR POC ABG pH POC ABG pCO2 POC ABG pO2 VBG pH Sodium 149 H Potassium Chloride 114.5 H Carbon Dioxide 21 L BUN 35 H Creatinine Glucose 127 H POC Glucose 150 H Magnesium AST ALT Alkaline Phosphatase Total Creatine Kinase NT-Pro-B Natriuret Pep Albumin Urine WBC (Auto) Crossmatch 11/20/18 11/20/18 11/21/18 18:02 23:49 06:14 WBC RBC Hgb Hct MCH MCHC RDW Plt Count Lymph % (Auto) Cobb % (Auto) Eos % (Auto) Lymph # Cobb # Eos # Seg Neutrophils % Seg Neutrophils # PT INR POC ABG pH POC ABG pCO2 POC ABG pO2 VBG pH Sodium Potassium Chloride Carbon Dioxide BUN Creatinine Glucose POC Glucose 131 H 137 H 133 H Magnesium AST ALT Alkaline Phosphatase Total Creatine Kinase NT-Pro-B Natriuret Pep Albumin Urine WBC (Auto) Crossmatch 11/21/18 11/21/18 11/21/18 10:00 12:09 18:04 WBC RBC Hgb Hct MCH MCHC RDW Plt Count Lymph % (Auto) Cobb % (Auto) Eos % (Auto) Lymph # Cobb # Eos # Seg Neutrophils % Seg Neutrophils # PT INR POC ABG pH POC ABG pCO2 POC ABG pO2 VBG pH Sodium Potassium Chloride 110.6 H Carbon Dioxide BUN 31 H Creatinine Glucose 119 H POC Glucose 116 H 126 H Magnesium AST ALT Alkaline Phosphatase Total Creatine Kinase NT-Pro-B Natriuret Pep Albumin Urine WBC (Auto) Crossmatch 11/22/18 11/22/18 11/22/18 00:14 05:47 06:23 WBC RBC Hgb Hct MCH MCHC RDW Plt Count Lymph % (Auto) Cobb % (Auto) Eos % (Auto) Lymph # Cobb # Eos # Seg Neutrophils % Seg Neutrophils # PT INR POC ABG pH POC ABG pCO2 POC ABG pO2 VBG pH Sodium Potassium Chloride 107.6 H Carbon Dioxide BUN 32 H Creatinine 0.7 L Glucose 116 H POC Glucose 122 H 119 H Magnesium AST ALT Alkaline Phosphatase Total Creatine Kinase NT-Pro-B Natriuret Pep Albumin Urine WBC (Auto) Crossmatch 11/22/18 11/22/18 11/22/18 08:40 12:19 17:39 WBC RBC Hgb Hct MCH MCHC RDW Plt Count Lymph % (Auto) Cobb % (Auto) Eos % (Auto) Lymph # Cobb # Eos # Seg Neutrophils % Seg Neutrophils # PT INR POC ABG pH POC ABG pCO2 POC ABG pO2 VBG pH Sodium Potassium Chloride Carbon Dioxide BUN Creatinine Glucose POC Glucose 150 H 111 H 108 H Magnesium AST ALT Alkaline Phosphatase Total Creatine Kinase NT-Pro-B Natriuret Pep Albumin Urine WBC (Auto) Crossmatch 11/23/18 11/23/18 11/23/18 00:36 05:37 05:56 WBC RBC Hgb Hct MCH MCHC RDW Plt Count Lymph % (Auto) Cobb % (Auto) Eos % (Auto) Lymph # Cobb # Eos # Seg Neutrophils % Seg Neutrophils # PT INR POC ABG pH POC ABG pCO2 POC ABG pO2 VBG pH Sodium 136 L Potassium Chloride Carbon Dioxide BUN 30 H Creatinine 0.7 L Glucose 103 H POC Glucose 125 H 122 H Magnesium 2.50 H AST ALT Alkaline Phosphatase Total Creatine Kinase NT-Pro-B Natriuret Pep Albumin Urine WBC (Auto) Crossmatch 11/23/18 11/23/18 11/23/18 11:56 17:39 23:40 WBC RBC Hgb Hct MCH MCHC RDW Plt Count Lymph % (Auto) Cobb % (Auto) Eos % (Auto) Lymph # Cobb # Eos # Seg Neutrophils % Seg Neutrophils # PT INR POC ABG pH POC ABG pCO2 POC ABG pO2 VBG pH Sodium Potassium Chloride Carbon Dioxide BUN Creatinine Glucose POC Glucose 121 H 113 H 117 H Magnesium AST ALT Alkaline Phosphatase Total Creatine Kinase NT-Pro-B Natriuret Pep Albumin Urine WBC (Auto) Crossmatch 11/24/18 11/24/18 11/24/18 05:13 12:00 18:13 WBC RBC Hgb Hct MCH MCHC RDW Plt Count Lymph % (Auto) Cobb % (Auto) Eos % (Auto) Lymph # Cobb # Eos # Seg Neutrophils % Seg Neutrophils # PT INR POC ABG pH POC ABG pCO2 POC ABG pO2 VBG pH Sodium Potassium Chloride Carbon Dioxide BUN Creatinine Glucose POC Glucose 143 H 123 H 124 H Magnesium AST ALT Alkaline Phosphatase Total Creatine Kinase NT-Pro-B Natriuret Pep Albumin Urine WBC (Auto) Crossmatch 11/24/18 11/25/18 11/25/18 23:34 05:25 05:25 WBC RBC 2.48 L Hgb 6.8 L Hct 21.2 L MCH MCHC RDW 17.7 H Plt Count Lymph % (Auto) Cobb % (Auto) Eos % (Auto) Lymph # Cobb # Eos # Seg Neutrophils % Seg Neutrophils # PT INR POC ABG pH POC ABG pCO2 POC ABG pO2 VBG pH Sodium Potassium Chloride 108.8 H Carbon Dioxide BUN 30 H Creatinine 0.7 L Glucose 112 H POC Glucose 115 H Magnesium AST ALT Alkaline Phosphatase Total Creatine Kinase NT-Pro-B Natriuret Pep Albumin Urine WBC (Auto) Crossmatch 11/25/18 11/25/18 11/25/18 06:46 11:15 11:28 WBC RBC Hgb 7.4 L Hct 23.0 L MCH MCHC RDW Plt Count Lymph % (Auto) Cobb % (Auto) Eos % (Auto) Lymph # Cobb # Eos # Seg Neutrophils % Seg Neutrophils # PT INR POC ABG pH POC ABG pCO2 POC ABG pO2 VBG pH Sodium Potassium Chloride Carbon Dioxide BUN Creatinine Glucose POC Glucose 133 H 127 H Magnesium AST ALT Alkaline Phosphatase Total Creatine Kinase NT-Pro-B Natriuret Pep Albumin Urine WBC (Auto) Crossmatch 11/25/18 11/25/18 11/25/18 15:28 17:32 23:45 WBC RBC Hgb Hct MCH MCHC RDW Plt Count Lymph % (Auto) Cobb % (Auto) Eos % (Auto) Lymph # Cobb # Eos # Seg Neutrophils % Seg Neutrophils # PT INR POC ABG pH POC ABG pCO2 POC ABG pO2 VBG pH Sodium Potassium Chloride Carbon Dioxide BUN Creatinine Glucose POC Glucose 115 H 130 H Magnesium AST ALT Alkaline Phosphatase Total Creatine Kinase NT-Pro-B Natriuret Pep Albumin Urine WBC (Auto) Crossmatch See Detail 11/26/18 11/26/18 11/26/18 06:13 06:20 06:20 WBC RBC 2.76 L Hgb 7.7 L Hct 23.4 L MCH MCHC RDW 17.5 H Plt Count Lymph % (Auto) Cobb % (Auto) Eos % (Auto) Lymph # Cobb # Eos # Seg Neutrophils % Seg Neutrophils # PT INR POC ABG pH POC ABG pCO2 POC ABG pO2 VBG pH Sodium Potassium Chloride 109.9 H Carbon Dioxide BUN 30 H Creatinine 0.6 L Glucose 121 H POC Glucose 129 H Magnesium AST ALT Alkaline Phosphatase Total Creatine Kinase NT-Pro-B Natriuret Pep Albumin Urine WBC (Auto) Crossmatch 11/26/18 11/26/18 11/27/18 12:06 16:35 06:04 WBC RBC Hgb Hct MCH MCHC RDW Plt Count Lymph % (Auto) Cobb % (Auto) Eos % (Auto) Lymph # Cobb # Eos # Seg Neutrophils % Seg Neutrophils # PT INR POC ABG pH POC ABG pCO2 POC ABG pO2 VBG pH Sodium Potassium Chloride Carbon Dioxide BUN Creatinine Glucose POC Glucose 139 H 107 H 126 H Magnesium AST ALT Alkaline Phosphatase Total Creatine Kinase NT-Pro-B Natriuret Pep Albumin Urine WBC (Auto) Crossmatch 11/27/18 11/27/18 11/28/18 13:14 17:47 07:03 WBC RBC Hgb Hct MCH MCHC RDW Plt Count Lymph % (Auto) Cobb % (Auto) Eos % (Auto) Lymph # Cobb # Eos # Seg Neutrophils % Seg Neutrophils # PT INR POC ABG pH POC ABG pCO2 POC ABG pO2 VBG pH Sodium Potassium Chloride Carbon Dioxide BUN Creatinine Glucose POC Glucose 130 H 115 H 118 H Magnesium AST ALT Alkaline Phosphatase Total Creatine Kinase NT-Pro-B Natriuret Pep Albumin Urine WBC (Auto) Crossmatch 11/28/18 11/29/18 11/29/18 11:38 00:35 04:56 WBC RBC Hgb Hct MCH MCHC RDW Plt Count Lymph % (Auto) Cobb % (Auto) Eos % (Auto) Lymph # Cobb # Eos # Seg Neutrophils % Seg Neutrophils # PT INR POC ABG pH POC ABG pCO2 POC ABG pO2 VBG pH Sodium Potassium Chloride Carbon Dioxide BUN Creatinine Glucose POC Glucose 126 H 107 H Magnesium AST ALT Alkaline Phosphatase Total Creatine Kinase 50 L NT-Pro-B Natriuret Pep Albumin Urine WBC (Auto) Crossmatch 11/29/18 11/29/18 11/29/18 05:49 11:46 18:17 WBC RBC Hgb Hct MCH MCHC RDW Plt Count Lymph % (Auto) Cobb % (Auto) Eos % (Auto) Lymph # Cobb # Eos # Seg Neutrophils % Seg Neutrophils # PT INR POC ABG pH POC ABG pCO2 POC ABG pO2 VBG pH Sodium Potassium Chloride Carbon Dioxide BUN Creatinine Glucose POC Glucose 128 H 140 H 115 H Magnesium AST ALT Alkaline Phosphatase Total Creatine Kinase NT-Pro-B Natriuret Pep Albumin Urine WBC (Auto) Crossmatch 11/30/18 11/30/18 11/30/18 00:00 03:30 03:30 WBC RBC 2.97 L Hgb 8.1 L Hct 25.5 L MCH 27 L MCHC RDW 17.7 H Plt Count Lymph % (Auto) 9.2 L Cobb % (Auto) 10.0 H Eos % (Auto) 4.6 H Lymph # 1.0 L Cobb # 1.1 H Eos # 0.5 H Seg Neutrophils % 75.6 H Seg Neutrophils # 8.4 H PT INR POC ABG pH POC ABG pCO2 POC ABG pO2 VBG pH Sodium Potassium Chloride Carbon Dioxide BUN 31 H Creatinine 0.7 L Glucose POC Glucose 120 H Magnesium AST ALT Alkaline Phosphatase Total Creatine Kinase NT-Pro-B Natriuret Pep Albumin Urine WBC (Auto) Crossmatch 11/30/18 11/30/18 11/30/18 06:54 11:45 16:59 WBC RBC Hgb Hct MCH MCHC RDW Plt Count Lymph % (Auto) Cobb % (Auto) Eos % (Auto) Lymph # Cobb # Eos # Seg Neutrophils % Seg Neutrophils # PT INR POC ABG pH POC ABG pCO2 POC ABG pO2 VBG pH Sodium Potassium Chloride Carbon Dioxide BUN Creatinine Glucose POC Glucose 120 H 123 H 111 H Magnesium AST ALT Alkaline Phosphatase Total Creatine Kinase NT-Pro-B Natriuret Pep Albumin Urine WBC (Auto) Crossmatch 12/01/18 12/01/18 12/01/18 00:20 05:58 11:33 WBC RBC Hgb Hct MCH MCHC RDW Plt Count Lymph % (Auto) Cobb % (Auto) Eos % (Auto) Lymph # Cobb # Eos # Seg Neutrophils % Seg Neutrophils # PT INR POC ABG pH POC ABG pCO2 POC ABG pO2 VBG pH Sodium Potassium Chloride Carbon Dioxide BUN Creatinine Glucose POC Glucose 113 H 127 H 138 H Magnesium AST ALT Alkaline Phosphatase Total Creatine Kinase NT-Pro-B Natriuret Pep Albumin Urine WBC (Auto) Crossmatch 12/02/18 12/03/18 12/03/18 00:33 05:07 05:07 WBC RBC 2.93 L Hgb 8.2 L Hct 24.9 L MCH MCHC RDW 17.0 H Plt Count 470 H Lymph % (Auto) 9.3 L Cobb % (Auto) 8.6 H Eos % (Auto) 5.4 H Lymph # 0.9 L Cobb # Eos # 0.5 H Seg Neutrophils % 75.8 H Seg Neutrophils # PT INR POC ABG pH POC ABG pCO2 POC ABG pO2 VBG pH Sodium Potassium Chloride Carbon Dioxide BUN 30 H Creatinine 0.6 L Glucose 115 H POC Glucose 110 H Magnesium AST ALT Alkaline Phosphatase Total Creatine Kinase NT-Pro-B Natriuret Pep Albumin Urine WBC (Auto) Crossmatch 12/03/18 12/03/18 12/03/18 05:58 11:49 17:44 WBC RBC Hgb Hct MCH MCHC RDW Plt Count Lymph % (Auto) Cobb % (Auto) Eos % (Auto) Lymph # Cobb # Eos # Seg Neutrophils % Seg Neutrophils # PT INR POC ABG pH POC ABG pCO2 POC ABG pO2 VBG pH Sodium Potassium Chloride Carbon Dioxide BUN Creatinine Glucose POC Glucose 127 H 138 H 127 H Magnesium AST ALT Alkaline Phosphatase Total Creatine Kinase NT-Pro-B Natriuret Pep Albumin Urine WBC (Auto) Crossmatch 12/05/18 12/05/18 12/05/18 00:22 05:53 17:18 WBC RBC Hgb Hct MCH MCHC RDW Plt Count Lymph % (Auto) Cobb % (Auto) Eos % (Auto) Lymph # Cobb # Eos # Seg Neutrophils % Seg Neutrophils # PT INR POC ABG pH POC ABG pCO2 POC ABG pO2 VBG pH Sodium Potassium Chloride Carbon Dioxide BUN Creatinine Glucose POC Glucose 124 H 121 H 112 H Magnesium AST ALT Alkaline Phosphatase Total Creatine Kinase NT-Pro-B Natriuret Pep Albumin Urine WBC (Auto) Crossmatch 12/06/18 12/06/18 12/06/18 00:07 06:16 11:43 WBC RBC Hgb Hct MCH MCHC RDW Plt Count Lymph % (Auto) Cobb % (Auto) Eos % (Auto) Lymph # Cobb # Eos # Seg Neutrophils % Seg Neutrophils # PT INR POC ABG pH POC ABG pCO2 POC ABG pO2 VBG pH Sodium Potassium Chloride Carbon Dioxide BUN Creatinine Glucose POC Glucose 111 H 117 H 121 H Magnesium AST ALT Alkaline Phosphatase Total Creatine Kinase NT-Pro-B Natriuret Pep Albumin Urine WBC (Auto) Crossmatch 12/06/18 12/07/18 12/07/18 20:57 06:41 12:09 WBC RBC Hgb Hct MCH MCHC RDW Plt Count Lymph % (Auto) Cobb % (Auto) Eos % (Auto) Lymph # Cobb # Eos # Seg Neutrophils % Seg Neutrophils # PT INR POC ABG pH POC ABG pCO2 POC ABG pO2 VBG pH Sodium Potassium Chloride 107.2 H Carbon Dioxide BUN 27 H Creatinine 0.7 L Glucose POC Glucose 128 H 137 H Magnesium 2.50 H AST ALT Alkaline Phosphatase Total Creatine Kinase NT-Pro-B Natriuret Pep Albumin Urine WBC (Auto) Crossmatch 12/07/18 12/08/18 12/08/18 19:29 05:44 12:27 WBC RBC Hgb Hct MCH MCHC RDW Plt Count Lymph % (Auto) Cobb % (Auto) Eos % (Auto) Lymph # Cobb # Eos # Seg Neutrophils % Seg Neutrophils # PT INR POC ABG pH POC ABG pCO2 POC ABG pO2 VBG pH Sodium Potassium Chloride Carbon Dioxide BUN Creatinine Glucose POC Glucose 110 H 126 H 130 H Magnesium AST ALT Alkaline Phosphatase Total Creatine Kinase NT-Pro-B Natriuret Pep Albumin Urine WBC (Auto) Crossmatch 12/08/18 12/09/18 12/09/18 17:44 00:20 06:42 WBC RBC Hgb Hct MCH MCHC RDW Plt Count Lymph % (Auto) Cobb % (Auto) Eos % (Auto) Lymph # Cobb # Eos # Seg Neutrophils % Seg Neutrophils # PT INR POC ABG pH POC ABG pCO2 POC ABG pO2 VBG pH Sodium Potassium Chloride Carbon Dioxide BUN Creatinine Glucose POC Glucose 113 H 121 H 124 H Magnesium AST ALT Alkaline Phosphatase Total Creatine Kinase NT-Pro-B Natriuret Pep Albumin Urine WBC (Auto) Crossmatch 12/09/18 12/09/18 12/09/18 12:24 18:41 23:48 WBC RBC Hgb Hct MCH MCHC RDW Plt Count Lymph % (Auto) Cobb % (Auto) Eos % (Auto) Lymph # Cobb # Eos # Seg Neutrophils % Seg Neutrophils # PT INR POC ABG pH POC ABG pCO2 POC ABG pO2 VBG pH Sodium Potassium Chloride Carbon Dioxide BUN Creatinine Glucose POC Glucose 114 H 109 H 128 H Magnesium AST ALT Alkaline Phosphatase Total Creatine Kinase NT-Pro-B Natriuret Pep Albumin Urine WBC (Auto) Crossmatch 12/10/18 12/10/18 12/11/18 07:07 11:28 00:24 WBC RBC Hgb Hct MCH MCHC RDW Plt Count Lymph % (Auto) Cobb % (Auto) Eos % (Auto) Lymph # Cobb # Eos # Seg Neutrophils % Seg Neutrophils # PT INR POC ABG pH POC ABG pCO2 POC ABG pO2 VBG pH Sodium Potassium Chloride Carbon Dioxide BUN Creatinine Glucose POC Glucose 111 H 110 H 112 H Magnesium AST ALT Alkaline Phosphatase Total Creatine Kinase NT-Pro-B Natriuret Pep Albumin Urine WBC (Auto) Crossmatch 12/11/18 12/11/18 12/11/18 06:44 11:53 18:17 WBC RBC Hgb Hct MCH MCHC RDW Plt Count Lymph % (Auto) Cobb % (Auto) Eos % (Auto) Lymph # Cobb # Eos # Seg Neutrophils % Seg Neutrophils # PT INR POC ABG pH POC ABG pCO2 POC ABG pO2 VBG pH Sodium Potassium Chloride Carbon Dioxide BUN Creatinine Glucose POC Glucose 111 H 132 H 133 H Magnesium AST ALT Alkaline Phosphatase Total Creatine Kinase NT-Pro-B Natriuret Pep Albumin Urine WBC (Auto) Crossmatch 12/11/18 12/12/18 12/12/18 23:58 00:05 06:11 WBC RBC 2.85 L Hgb 7.8 L Hct 24.4 L MCH 27 L MCHC RDW 17.4 H Plt Count 459 H Lymph % (Auto) Cobb % (Auto) 11.2 H Eos % (Auto) 5.4 H Lymph # Cobb # 1.1 H Eos # 0.5 H Seg Neutrophils % Seg Neutrophils # PT INR POC ABG pH POC ABG pCO2 POC ABG pO2 VBG pH Sodium Potassium Chloride Carbon Dioxide BUN Creatinine Glucose POC Glucose 126 H 144 H Magnesium AST ALT Alkaline Phosphatase Total Creatine Kinase NT-Pro-B Natriuret Pep Albumin Urine WBC (Auto) Crossmatch 12/12/18 12/12/18 12/13/18 11:42 18:36 00:12 WBC RBC Hgb Hct MCH MCHC RDW Plt Count Lymph % (Auto) Cobb % (Auto) Eos % (Auto) Lymph # Cobb # Eos # Seg Neutrophils % Seg Neutrophils # PT INR POC ABG pH POC ABG pCO2 POC ABG pO2 VBG pH Sodium Potassium Chloride Carbon Dioxide BUN Creatinine Glucose POC Glucose 106 H 117 H 115 H Magnesium AST ALT Alkaline Phosphatase Total Creatine Kinase NT-Pro-B Natriuret Pep Albumin Urine WBC (Auto) Crossmatch 12/13/18 12/13/18 12/13/18 05:58 11:52 23:57 WBC RBC Hgb Hct MCH MCHC RDW Plt Count Lymph % (Auto) Cobb % (Auto) Eos % (Auto) Lymph # Cobb # Eos # Seg Neutrophils % Seg Neutrophils # PT INR POC ABG pH POC ABG pCO2 POC ABG pO2 VBG pH Sodium Potassium Chloride Carbon Dioxide BUN Creatinine Glucose POC Glucose 122 H 129 H 125 H Magnesium AST ALT Alkaline Phosphatase Total Creatine Kinase NT-Pro-B Natriuret Pep Albumin Urine WBC (Auto) Crossmatch 12/14/18 12/14/18 12/14/18 04:44 04:44 05:44 WBC RBC 2.56 L Hgb 7.2 L Hct 22.1 L MCH MCHC RDW 17.8 H Plt Count 473 H Lymph % (Auto) Cobb % (Auto) 11.5 H Eos % (Auto) 4.8 H Lymph # Cobb # 1.1 H Eos # Seg Neutrophils % Seg Neutrophils # PT INR POC ABG pH POC ABG pCO2 POC ABG pO2 VBG pH Sodium 151 H Potassium Chloride 116.7 H Carbon Dioxide BUN 40 H Creatinine Glucose 114 H POC Glucose 117 H Magnesium AST 80 H ALT 67 H Alkaline Phosphatase 247 H Total Creatine Kinase NT-Pro-B Natriuret Pep Albumin 1.9 L Urine WBC (Auto) Crossmatch 12/14/18 12/15/18 12/15/18 11:29 00:01 05:13 WBC RBC 2.68 L Hgb 7.4 L Hct 23.1 L MCH MCHC RDW 17.6 H Plt Count 454 H Lymph % (Auto) 13.3 L Cobb % (Auto) 9.7 H Eos % (Auto) 6.9 H Lymph # Cobb # Eos # 0.6 H Seg Neutrophils % Seg Neutrophils # PT INR POC ABG pH POC ABG pCO2 POC ABG pO2 VBG pH Sodium Potassium Chloride Carbon Dioxide BUN Creatinine Glucose POC Glucose 115 H 113 H Magnesium AST ALT Alkaline Phosphatase Total Creatine Kinase NT-Pro-B Natriuret Pep Albumin Urine WBC (Auto) Crossmatch 12/15/18 12/15/18 12/15/18 05:13 06:31 11:31 WBC RBC Hgb Hct MCH MCHC RDW Plt Count Lymph % (Auto) Cobb % (Auto) Eos % (Auto) Lymph # Cobb # Eos # Seg Neutrophils % Seg Neutrophils # PT INR POC ABG pH POC ABG pCO2 POC ABG pO2 VBG pH Sodium 151 H Potassium Chloride 116.4 H Carbon Dioxide BUN 39 H Creatinine Glucose 110 H POC Glucose 130 H 127 H Magnesium AST 85 H ALT 78 H Alkaline Phosphatase 255 H Total Creatine Kinase NT-Pro-B Natriuret Pep Albumin 1.9 L Urine WBC (Auto) Crossmatch 12/15/18 12/16/18 12/16/18 17:54 00:27 00:33 WBC RBC Hgb Hct MCH MCHC RDW Plt Count Lymph % (Auto) Cobb % (Auto) Eos % (Auto) Lymph # Cobb # Eos # Seg Neutrophils % Seg Neutrophils # PT INR POC ABG pH POC ABG pCO2 POC ABG pO2 VBG pH Sodium Potassium Chloride Carbon Dioxide BUN Creatinine Glucose POC Glucose 122 H 131 H Magnesium AST ALT Alkaline Phosphatase Total Creatine Kinase 50 L NT-Pro-B Natriuret Pep Albumin Urine WBC (Auto) Crossmatch 12/16/18 12/16/18 05:31 11:31 WBC RBC Hgb Hct MCH MCHC RDW Plt Count Lymph % (Auto) Cobb % (Auto) Eos % (Auto) Lymph # Cobb # Eos # Seg Neutrophils % Seg Neutrophils # PT INR POC ABG pH POC ABG pCO2 POC ABG pO2 VBG pH Sodium Potassium Chloride Carbon Dioxide BUN Creatinine Glucose POC Glucose 138 H 121 H Magnesium AST ALT Alkaline Phosphatase Total Creatine Kinase NT-Pro-B Natriuret Pep Albumin Urine WBC (Auto) Crossmatch Allied health notes reviewed: nursing
[2018-12-16] MEDS ORDERED: SIMPLE SYRUP FEEDTUBE PRN ×2 (13:57)
[2018-12-16] MEDS ORDERED: SODIUM BICARBONATE FEEDTUBE PRN (13:57)
[2018-12-16] MEDS ORDERED: PANCREAZE DR 10,500 UNIT FEEDTUBE PRN (13:57)
[2018-12-16] MEDS: TYLENOL FEEDTUBE PRN (22:06)
[2018-12-17 05:21] LABS: Basophils # (Auto) 0.1 K/mm3 (0.0-0.1); Basophils % (Auto) 0.8 % (0.0-1.8); Eosinophils # (Auto) 0.5 K/mm3 (0.0-0.4); Eosinophils % (Auto) 4.5 % (0.0-4.3); Hematocrit 25.7 % (35.5-45.6); Hemoglobin 7.9 gm/dl (11.8-15.2); Lymphocytes # (Auto) 1.3 K/mm3 (1.2-5.4); Lymphocytes % (Auto) 11.3 % (13.4-35.0); Mean Corpuscular HGB Conc 31 % (32-34); Mean Corpuscular Volume 87 fl (84-94); Monocytes # (Auto) 0.8 K/mm3 (0.0-0.8); Monocytes % (Auto) 7.5 % (0.0-7.3); Platelet Count 479 K/mm3 (140-440); Red Blood Count 2.96 M/mm3 (3.65-5.03); Red Cell Distribution Width 17.9 % (13.2-15.2)
[2018-12-17 05:50] LABS: Alanine Aminotransferase 99 units/L (7-56); Albumin 1.8 g/dL (3.9-5); BUN/Creatinine Ratio 46; Blood Urea Nitrogen 41 mg/dL (9-20); Calcium 9.1 mg/dL (8.4-10.2); Hemolysis Index 2
[2018-12-17] MEDS: D5W 1,000 ML IV SCH ×2 (06:03→22:07)
[2018-12-17] MEDS: LOVENOX SUB-Q SCH (09:51)
[2018-12-17] MEDS: VITAMIN C FEEDTUBE SCH ×2 (09:52→22:08)
[2018-12-17] MEDS: Centrum Liq FEEDTUBE SCH (09:52)
[2018-12-17] MEDS: COREG PO SCH ×2 (09:52→22:07)
[2018-12-17] MEDS: ZINC SULFATE PO SCH (09:52)
[2018-12-17] MEDS: MIRALAX 3350 FEEDTUBE SCH (09:52)
[2018-12-17] MEDS: SODIUM CHLORIDE FLUSH SYRINGE 10 ML IV SCH ×2 (09:53→22:08)
--- NOTE | 2018-12-17 14:02 | Progress Note ---
Assessment and Plan Assessment and plan: 7 YO Male [facility] Resident as [facility] with HTN, CVA, Obstructive Uropathy, Diastolic CHF, Contracture, Sacral Decubitus Ulcers, AK, DM, OA, Seizure Disorder, COPD, Dementia, BPH presents to ED for evaluation. Pt is stuporous and unable to provide history. Pt history taken from ED Staff, EMS, and SNF Staff. As per staff, the patient was found to have respiratory distress upon evaluation this morning. Pt found to have pulse oximetry in the 80's. EMS notified and patient subsequently transported to [facility] for further care and evaluation. Pt seen and evaluated in ED and found to have UTI, Sepsis, Encephalopathy as well as Acute Hypoxemic Respiratory Failure. Extensive discussion with family about patients poor prognosis surgery consulted, did debridment ID following, Pulmonary status improved Continue isolation care Chaudhary placed by Urology. 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 He needs to be on contact isolation. This cannot be cured with antibiotics. recommend palliative care/comfort care or hospice, family are not interested in that option. Completed daptomycin for 6 weeks completed 12/16/2018 Sacral pressure ulcer -infected. POA Debridement done by Dr Man Amputation recommended and the daughter refused Respiratory failure Supplemental oxygen, nebulizer therapy, mgt per pulmonology ANEMIA of chronic disease Transfused one unit PRBC hemoglobin is stable Transfuse as necessary Seizure Continue current therapy, seizure precautions. BPH Continue Chaudhary catherter Dementia supportive care DVT prophylaxis Prophylactic lovenox POOR PROGNOSIS Disposition; pending SNF placement. . History Interval history: No new complaints Hospitalist Physical - Physical exam Narrative exam: Gen: Not in acute distress. lying in bed Head exam is unremarkable. No scleral icterus . Neck is without jugular venous distension, thyromegaly, or carotid bruits. Lungs are clear to auscultation. Cardiac exam reveals regular rate and Rhythm. First and second heart sounds normal. No murmurs, rubs or gallops. Abdominal exam reveals non tender, not distended,normal bowel sounds, no masses, Extremities contracted extremities. [employer]: Awake,alert, contracted extremities Skin; multiple decubitus ulcers, including the sacrum , lower extremities bilateral. - Constitutional Vitals: Temp Pulse Resp BP Pulse Ox 99.2 F 92 H 18 116/70 96 12/17/18 08:10 12/17/18 07:58 12/17/18 07:58 12/17/18 07:58 12/17/18 07:58 General appearance: Present: no acute distress, well-nourished Results - Labs CBC & Chem 7: 12/17/18 05:01 12/17/18 05:01 Labs: Laboratory Last Values WBC 11.1 K/mm3 (4.5-11.0) H 12/17/18 05:01 RBC 2.96 M/mm3 (3.65-5.03) L 12/17/18 05:01 Hgb 7.9 gm/dl (11.8-15.2) L 12/17/18 05:01 Hct 25.7 % (35.5-45.6) L 12/17/18 05:01 MCV 87 fl (84-94) 12/17/18 05:01 MCH 27 pg (28-32) L 12/17/18 05:01 MCHC 31 % (32-34) L 12/17/18 05:01 RDW 17.9 % (13.2-15.2) H 12/17/18 05:01 Plt Count 479 K/mm3 (140-440) H 12/17/18 05:01 Lymph % (Auto) 11.3 % (13.4-35.0) L 12/17/18 05:01 Whitman % (Auto) 7.5 % (0.0-7.3) H 12/17/18 05:01 Eos % (Auto) 4.5 % (0.0-4.3) H 12/17/18 05:01 Baso % (Auto) 0.8 % (0.0-1.8) 12/17/18 05:01 Lymph # 1.3 K/mm3 (1.2-5.4) 12/17/18 05:01 Whitman # 0.8 K/mm3 (0.0-0.8) 12/17/18 05:01 Eos # 0.5 K/mm3 (0.0-0.4) H 12/17/18 05:01 Baso # 0.1 K/mm3 (0.0-0.1) 12/17/18 05:01 Seg Neutrophils % 75.9 % (40.0-70.0) H 12/17/18 05:01 Seg Neutrophils # 8.4 K/mm3 (1.8-7.7) H 12/17/18 05:01 PT 16.3 Sec. (12.2-14.9) H 11/01/18 14:50 INR 1.35 (0.87-1.13) H 11/01/18 14:50 POC ABG pH 7.494 (7.35-7.45) H 11/01/18 15:27 POC ABG pCO2 34.5 (35-45) L 11/01/18 15:27 POC ABG pO2 139 (80-105) H 11/01/18 15:27 POC ABG HCO3 26.5 (22-26 mml/L) 11/01/18 15:27 POC ABG Total CO2 28 (23-27mmol/L) 11/01/18 15:27 POC ABG O2 Sat 99 11/01/18 15:27 POC ABG Base Excess 3 ((-2) - (+3)mmol/L) 11/01/18 15:27 VBG pH 7.499 (7.320-7.420) H 11/01/18 14:50 50 % 11/01/18 15:27 Sodium 155 mmol/L (137-145) H 12/17/18 05:01 Potassium 3.8 mmol/L (3.6-5.0) 12/17/18 05:01 Chloride 121.2 mmol/L (98-107) H 12/17/18 05:01 Carbon Dioxide 24 mmol/L (22-30) 12/17/18 05:01 14 mmol/L 12/17/18 05:01 BUN 41 mg/dL (9-20) H 12/17/18 05:01 0.9 mg/dL (0.8-1.5) 12/17/18 05:01 Estimated GFR > 60 ml/min 12/17/18 05:01 46 % 12/17/18 05:01 Glucose 122 mg/dL (75-100) H 12/17/18 05:01 POC Glucose 142 (70-105) H 12/17/18 11:52 Lactic Acid 1.80 mmol/L (0.7-2.0) 11/01/18 14:50 Calcium 9.1 mg/dL (8.4-10.2) 12/17/18 05:01 Phosphorus 2.90 mg/dL (2.5-4.5) 11/22/18 09:43 Magnesium 2.50 mg/dL (1.7-2.3) H 12/06/18 20:57 0.20 mg/dL (0.1-1.2) 12/17/18 05:01 AST 97 units/L (5-40) H 12/17/18 05:01 ALT 99 units/L (7-56) H 12/17/18 05:01 279 units/L (35-129) H 12/17/18 05:01 50 units/L (55-170) L 12/16/18 00:27 NT-Pro-B Natriuret Pep 6776 pg/mL (0-900) H 11/01/18 14:50 7.7 g/dL (6.3-8.2) 12/17/18 05:01 1.8 g/dL (3.9-5) L 12/17/18 05:01 0.3 % 12/17/18 05:01 14 units/L (13-60) 11/25/18 15:07 Yellow (Yellow) 11/01/18 15:57 Turbid (Clear) 11/01/18 15:57 6.0 (5.0-7.0) 11/01/18 15:57 Ur Specific [place] 1.016 (1.003-1.030) 11/01/18 15:57 100 mg/dl mg/dL (Negative) 11/01/18 15:57 Neg mg/dL (Negative) 11/01/18 15:57 Neg mg/dL (Negative) 11/01/18 15:57 Neg (Negative) 11/01/18 15:57 Neg (Negative) 11/01/18 15:57 Neg (Negative) 11/01/18 15:57 < 2.0 mg/dL (<2.0) 11/01/18 15:57 Ur Leukocyte Esterase Mod (Negative) 11/01/18 15:57 > 182.0 /HPF (0.0-6.0) H 11/01/18 15:57 40.0 /HPF (0.0-6.0) 11/01/18 15:57 U Epithel Cells (Auto) 8.0 /HPF (0-13.0) 11/01/18 15:57 3+ /HPF 11/01/18 15:57 3+ /HPF 11/01/18 15:57 Random Vancomycin 13.9 ug/mL (0-40.0) 11/02/18 05:05 Blood Type O POSITIVE 11/25/18 15:28 Antibody Screen Negative 11/25/18 15:28 Crossmatch See Detail 11/25/18 15:28 Active Medications - Current Medications Current Medications: Generic Name Dose Route Start Last Admin Trade Name Freq PRN Reason Stop Dose Admin Acetaminophen 650 mg 12/11/18 15:21 12/16/18 22:06 Tylenol FEEDTUBE 650 mg Q6H PRN Administration Pain, Mild (1-3) Albuterol 2.5 mg 11/01/18 17:15 Proventil IH Q3HRT PRN Shortness Of Breath Lipase/Protease/Amylase 1 each 12/16/18 13:[address] 10,500 Unit FEEDTUBE PRN PRN For Clogged Feeding Tube Ascorbic Acid 500 mg 11/01/18 22:00 12/17/18 09:52 Vitamin C FEEDTUBE 500 mg BID NORA Administration Atorvastatin Calcium 40 mg 11/01/18 22:00 12/16/18 22:06 Lipitor FEEDTUBE 40 mg QHS NORA Administration Carvedilol 6.25 mg 11/08/18 13:00 12/17/18 09:52 Coreg PO 6.25 mg BID NORA Administration Clonidine HCl 0.2 mg 11/05/18 17:18 12/10/18 20:46 Catapres-Tts Patch TD 0.2 mg Tu NORA Administration Enoxaparin Sodium 40 mg 11/02/18 10:00 12/17/18 09:51 Lovenox SUB-Q 40 mg QDAY@1000 NORA Administration Hydralazine HCl 10 mg 11/25/18 22:00 12/16/18 22:07 Apresoline PO 10 mg Q12HR NORA Administration Dextrose 1,000 mls @ 75 mls/hr 12/16/18 09:30 07/30/19 06:03 D5w IV 75 mls/hr DIRECT NORA Administration Levetiracetam 500 mg 11/01/18 22:00 12/16/18 22:06 Keppra FEEDTUBE 500 mg BID NORA Administration Mineral Oil 133 ml 12/10/18 14:55 Fleet Mineral Oil ND QDAY PRN Constipation Morphine Sulfate 2 mg 11/01/18 17:15 12/10/18 23:15 Morphine IV 2 mg Q4H PRN Administration Pain, Moderate (4-6) Multivitamins 5 ml 11/02/18 10:00 12/17/18 09:52 Centrum Liq FEEDTUBE 5 ml QDAY NORA Administration Polyethylene Glycol 17 gm 12/10/18 15:00 12/17/18 09:52 Miralax 3350 FEEDTUBE 17 gm QDAY NORA Administration Senna 8.6 mg 12/10/18 14:56 Senokot FEEDTUBE Q12H PRN Laxative Effect Simple Syrup 15 ml 12/16/18 13:57 Simple Syrup FEEDTUBE PRN PRN Hypoglycemia Simple Syrup 30 ml 12/16/18 13:57 Simple Syrup FEEDTUBE PRN PRN Hypoglycemia Sodium Bicarbonate 325 mg 12/16/18 13:57 Sodium Bicarbonate FEEDTUBE PRN PRN For Clogged Feeding Tube Sodium Biphosphate/Sodium Phosphate 133 ml 12/10/18 14:55 Fleet ND QDAY PRN Bowel Movement Sodium Chloride 10 ml 11/01/18 22:00 12/17/18 09:53 Sodium Chloride Flush Syringe 10 Ml IV 10 ml BID NORA Administration Sodium Chloride 10 ml 11/01/18 17:15 11/23/18 04:05 Sodium Chloride Flush Syringe 10 Ml IV 10 ml PRN PRN Administration LINE FLUSH Zinc Sulfate 220 mg 11/02/18 10:00 12/17/18 09:52 Zinc Sulfate PO 220 mg DAILY NORA Administration Nutrition/Malnutrition Assess - Dietary Evaluation Nutrition/Malnutrition Findings: Nutrition Notes Start: 11/04/18 16:00 Freq: Status: Active Protocol: Document 12/16/18 13:40 CHANDRAKANT (Rec: 12/16/18 13:57 CHANDRAKANT [email or web address]) Nutrition Notes Initial or Follow up Reassessment Current Diagnosis Sepsis Other Pertinent Diagnosis Infected sacral decubitus, Dementia, BPH, UTI Current Diet TF - Nepro at 40ml/hr Labs/Tests Reviewed Pertinent Medications D5W at 75ml/hr Height 5 ft 8 in Weight 62.1 kg [place] Body Weight (kg) 70.00 BMI 20.8 Subjective/Other Information TF infusing at goal rate; pt tolerating TF, per RN report. Mario not ordered, so pt has not received it yet. Pt awaiting placement. Percent of energy/protein needs met: 100%/84% Burn Absent Trauma Absent #1 Nutrition Diagnosis Inadequate oral intake Diagnosis Progress(for reassessment Continues documentation) Is patient on ventilator? No Is Patient Ambulatory and/or Out of Bed No REE-([facility]-confined to bed) [phone] Kcal/Kg value to use for calculation 34 Approximate Energy Requirements Using 2111 kcal/Kg Calculation Used for Recommendations Kcal/kg Additional Notes Pro needs 1.5-2g/k-124g/ day Fluid needs 1ml/kcal Nutrition Intervention Nutrition Support: Change TF formula to Glucerna 1.2 at 70ml/hr with 110ml water flush q4h. Kcal 2,016 Protein (gm) 101 Carbohydrates (gm) 192 Fat (gm) 101 Fluid (mL) 1,352 Fiber (gm) 27 Add Supplement/Snack (indicate name/kcal Mario BID /protein ) Provides kCal: 190 Provides Protein (gm) 5 Goal #1 TF tolerance Goal #2 TF to meet 100% energy and pro needs Goal #3 Wound healing Follow-Up By: 12/17/18 Additional Comments F/U: TF formula change, Mario
--- NOTE | 2018-12-17 14:14 | Progress Note ---
Assessment and Plan Patient is weak and contracted and has multiple pressure wounds. Patients general medical condition unchanged. Patient is sleeping and on room air at this time. No acute respiratory distress. O2 sat 92%. Patient running low grade temp. Has mild leukocytosis. Antibiotics as per infectious diseases. - Patient Problems (1) Respiratory failure Current Visit: Yes Status: Acute Qualifiers: Chronicity: acute Respiratory failure complication: hypoxia Qualified Code(s): J96.01 - Acute respiratory failure with hypoxia Plan to address problem: Continue O2 supplementation 2 L via nasal canula. Albuterol and Atrovent treatment q6h. Continue SQ Levonox. Recommend GI prophylexis. (2) Seizure Current Visit: Yes Status: Acute Plan to address problem: Management as per neurologist. (3) Sepsis Current Visit: Yes Status: Acute Plan to address problem: Patient treated with Daptomycine . Antibiotic management as per infectious diseases. (4) UTI (urinary tract infection) Current Visit: Yes Status: Acute Qualifiers: Encounter type: initial encounter Plan to address problem: Patient is treated with Daptomycine . Antibiotic management as per infectious diseases. (5) ARF (acute renal failure) with tubular necrosis Current Visit: No Status: Acute Plan to address problem: Management as per Nephrology. Subjective Date of service: 12/17/18 Principal diagnosis: Severe Sepsis; Ac. Hypoxemic Resp failure; Anemia; Seizure; UTI; BPH Interval history: Patient is weak and contracted and has multiple pressure wounds. Patients general medical condition unchanged. Patient is sleeping and on room air at this time. No acute respiratory distre ss. O2 sat 92%. Patient running low grade temp. Has mild leukocytosis. Antibiotics as per infectious diseases. Objective Vital Signs - 12hr 12/17/18 12/17/18 12/17/18 02:25 07:58 08:10 Temperature 98.5 F 99.2 F Pulse Rate 86 92 H Respiratory 30 H 18 Rate Blood Pressure 115/66 116/70 O2 Sat by Pulse 95 96 Oximetry Constitutional: no acute distress, asleep Eyes: non-icteric ENT: oropharynx moist Neck: no lymphadenopathy, no JVD, other (mild stiffness / contracture) Effort: normal Ascultation: Bilateral: diminished breath sounds, rhonchi Percussion: Bilateral: not dull Cardiovascular: regular rate and rhythm Gastrointestinal: normoactive bowel sounds, soft, non-tender, non-distended Integumentary: rash Extremities: no cyanosis, no edema, pulses normal, other (Patient has pressure ulcer at multiple areas, including sacral area.) Neurologic: non-focal exam, pupils equal and round, CN II-XII normal, other (+ contractures) Psychiatric: mood appropriate, affect normal CBC and BMP: 12/17/18 05:01 12/17/18 05:01 ABG, PT/INR, D-dimer: ABG POC ABG pH 7.494 (7.35-7.45) H 11/01/18 15:27 POC ABG pCO2 34.5 (35-45) L 11/01/18 15:27 POC ABG pO2 139 (80-105) H 11/01/18 15:27 POC ABG HCO3 26.5 (22-26 mml/L) 11/01/18 15:27 POC ABG Total CO2 28 (23-27mmol/L) 11/01/18 15:27 POC ABG O2 Sat 99 11/01/18 15:27 PT/INR, D-dimer PT 16.3 Sec. (12.2-14.9) H 11/01/18 14:50 INR 1.35 (0.87-1.13) H 11/01/18 14:50 Abnormal lab findings: Abnormal Labs 11/01/18 11/01/18 11/01/18 14:50 14:50 14:50 WBC 15.3 H RBC 2.76 L Hgb 7.9 L Hct 23.5 L MCH MCHC RDW 18.3 H Plt Count 567 H Lymph % (Auto) 6.5 L [place] % (Auto) 8.5 H Eos % (Auto) Lymph # 1.0 L [place] # 1.3 H Eos # Seg Neutrophils % 83.4 H Seg Neutrophils # 12.7 H PT 16.3 H INR 1.35 H POC ABG pH POC ABG pCO2 POC ABG pO2 VBG pH Sodium Potassium Chloride Carbon Dioxide BUN 49 H Creatinine Glucose 132 H POC Glucose Magnesium AST 90 H ALT 77 H Alkaline Phosphatase 350 H Total Creatine Kinase NT-Pro-B Natriuret Pep Albumin 1.6 L Urine WBC (Auto) Crossmatch 11/01/18 11/01/18 11/01/18 14:50 14:50 15:27 WBC RBC Hgb Hct MCH MCHC RDW Plt Count Lymph % (Auto) [place] % (Auto) Eos % (Auto) Lymph # [place] # Eos # Seg Neutrophils % Seg Neutrophils # PT INR POC ABG pH 7.494 H POC ABG pCO2 34.5 L POC ABG pO2 139 H VBG pH 7.499 H Sodium Potassium Chloride Carbon Dioxide BUN Creatinine Glucose POC Glucose Magnesium AST ALT Alkaline Phosphatase Total Creatine Kinase NT-Pro-B Natriuret Pep 6776 H Albumin Urine WBC (Auto) Crossmatch 11/01/18 11/03/18 11/03/18 15:57 03:41 03:41 WBC 12.8 H RBC 2.55 L Hgb 6.9 L Hct 22.2 L MCH 27 L MCHC 31 L RDW 17.9 H Plt Count 519 H Lymph % (Auto) [place] % (Auto) Eos % (Auto) Lymph # [place] # Eos # Seg Neutrophils % Seg Neutrophils # PT INR POC ABG pH POC ABG pCO2 POC ABG pO2 VBG pH Sodium 147 H Potassium Chloride 110.3 H Carbon Dioxide BUN 55 H Creatinine Glucose POC Glucose Magnesium AST ALT Alkaline Phosphatase Total Creatine Kinase NT-Pro-B Natriuret Pep Albumin Urine WBC (Auto) > 182.0 H Crossmatch 11/03/18 11/04/18 11/04/18 12:51 05:12 05:12 WBC 11.5 H RBC 2.94 L Hgb 8.3 L Hct 25.3 L MCH MCHC RDW 17.3 H Plt Count 514 H Lymph % (Auto) [place] % (Auto) Eos % (Auto) Lymph # [place] # Eos # Seg Neutrophils % Seg Neutrophils # PT INR POC ABG pH POC ABG pCO2 POC ABG pO2 VBG pH Sodium 147 H Potassium Chloride 112.4 H Carbon Dioxide BUN 52 H Creatinine Glucose POC Glucose Magnesium AST ALT Alkaline Phosphatase Total Creatine Kinase NT-Pro-B Natriuret Pep Albumin Urine WBC (Auto) Crossmatch See Detail 11/05/18 11/05/18 11/06/18 04:50 04:50 05:42 WBC RBC 3.03 L 2.80 L Hgb 8.7 L 7.9 L Hct 26.6 L 24.7 L MCH MCHC RDW 17.1 H 17.0 H Plt Count 502 H 478 H Lymph % (Auto) 10.4 L [place] % (Auto) 8.6 H Eos % (Auto) 4.7 H Lymph # 1.0 L [place] # Eos # 0.5 H Seg Neutrophils % 75.6 H Seg Neutrophils # PT INR POC ABG pH POC ABG pCO2 POC ABG pO2 VBG pH Sodium 149 H Potassium Chloride 114.4 H Carbon Dioxide 21 L BUN 50 H Creatinine Glucose 108 H POC Glucose Magnesium AST ALT Alkaline Phosphatase Total Creatine Kinase NT-Pro-B Natriuret Pep Albumin Urine WBC (Auto) Crossmatch 11/06/18 11/11/18 11/12/18 05:42 18:54 00:22 WBC RBC Hgb Hct MCH MCHC RDW Plt Count Lymph % (Auto) [place] % (Auto) Eos % (Auto) Lymph # [place] # Eos # Seg Neutrophils % Seg Neutrophils # PT INR POC ABG pH POC ABG pCO2 POC ABG pO2 VBG pH Sodium 149 H Potassium Chloride 113.4 H Carbon Dioxide BUN 50 H Creatinine Glucose 121 H POC Glucose 114 H 123 H Magnesium AST ALT Alkaline Phosphatase Total Creatine Kinase NT-Pro-B Natriuret Pep Albumin Urine WBC (Auto) Crossmatch 11/12/18 11/12/18 11/13/18 06:49 11:35 06:34 WBC RBC Hgb Hct MCH MCHC RDW Plt Count Lymph % (Auto) [place] % (Auto) Eos % (Auto) Lymph # [place] # Eos # Seg Neutrophils % Seg Neutrophils # PT INR POC ABG pH POC ABG pCO2 POC ABG pO2 VBG pH Sodium Potassium Chloride Carbon Dioxide BUN Creatinine Glucose POC Glucose 129 H 123 H 128 H Magnesium AST ALT Alkaline Phosphatase Total Creatine Kinase NT-Pro-B Natriuret Pep Albumin Urine WBC (Auto) Crossmatch 11/13/18 11/13/18 11/13/18 09:26 09:26 15:13 WBC RBC 3.08 L Hgb 8.6 L Hct 27.3 L MCH MCHC 31 L RDW 18.3 H Plt Count 504 H Lymph % (Auto) 11.7 L [place] % (Auto) 7.5 H Eos % (Auto) 7.0 H Lymph # [place] # Eos # 0.7 H Seg Neutrophils % 72.9 H Seg Neutrophils # PT INR POC ABG pH POC ABG pCO2 POC ABG pO2 VBG pH Sodium 153 H Potassium 6.3 H* 5.8 H Chloride 122.3 H Carbon Dioxide 21 L BUN 38 H Creatinine Glucose 112 H POC Glucose Magnesium AST ALT Alkaline Phosphatase Total Creatine Kinase NT-Pro-B Natriuret Pep Albumin Urine WBC (Auto) Crossmatch 11/13/18 11/13/18 11/14/18 22:10 23:45 13:17 WBC RBC Hgb Hct MCH MCHC RDW Plt Count Lymph % (Auto) [place] % (Auto) Eos % (Auto) Lymph # [place] # Eos # Seg Neutrophils % Seg Neutrophils # PT INR POC ABG pH POC ABG pCO2 POC ABG pO2 VBG pH Sodium 155 H Potassium 5.3 H Chloride 122.3 H Carbon Dioxide BUN 35 H Creatinine Glucose 113 H POC Glucose 111 H 142 H Magnesium AST ALT Alkaline Phosphatase Total Creatine Kinase NT-Pro-B Natriuret Pep Albumin Urine WBC (Auto) Crossmatch 11/14/18 11/15/18 11/15/18 19:08 00:31 06:45 WBC RBC Hgb Hct MCH MCHC RDW Plt Count Lymph % (Auto) [place] % (Auto) Eos % (Auto) Lymph # [place] # Eos # Seg Neutrophils % Seg Neutrophils # PT INR POC ABG pH POC ABG pCO2 POC ABG pO2 VBG pH Sodium Potassium Chloride Carbon Dioxide BUN Creatinine Glucose POC Glucose 116 H 125 H 131 H Magnesium AST ALT Alkaline Phosphatase Total Creatine Kinase NT-Pro-B Natriuret Pep Albumin Urine WBC (Auto) Crossmatch 11/15/18 11/15/18 11/15/18 07:13 07:13 19:03 WBC 13.2 H RBC 2.81 L Hgb 7.8 L Hct 24.5 L MCH MCHC RDW 18.2 H Plt Count 454 H Lymph % (Auto) 9.0 L [place] % (Auto) 7.5 H Eos % (Auto) Lymph # [place] # 1.0 H Eos # 0.5 H Seg Neutrophils % 78.8 H Seg Neutrophils # 10.4 H PT INR POC ABG pH POC ABG pCO2 POC ABG pO2 VBG pH Sodium 149 H Potassium 5.2 H Chloride 117.2 H Carbon Dioxide BUN 38 H Creatinine Glucose 114 H POC Glucose 141 H Magnesium AST ALT Alkaline Phosphatase Total Creatine Kinase NT-Pro-B Natriuret Pep Albumin Urine WBC (Auto) Crossmatch 11/16/18 11/16/18 11/16/18 01:15 01:15 06:45 WBC RBC Hgb Hct MCH MCHC RDW Plt Count Lymph % (Auto) [place] % (Auto) Eos % (Auto) Lymph # [place] # Eos # Seg Neutrophils % Seg Neutrophils # PT INR POC ABG pH POC ABG pCO2 POC ABG pO2 VBG pH Sodium Potassium 5.3 H Chloride Carbon Dioxide BUN Creatinine Glucose POC Glucose 129 H Magnesium 2.60 H AST ALT Alkaline Phosphatase Total Creatine Kinase NT-Pro-B Natriuret Pep Albumin Urine WBC (Auto) Crossmatch 11/16/18 11/16/18 11/17/18 13:20 18:02 00:16 WBC RBC Hgb Hct MCH MCHC RDW Plt Count Lymph % (Auto) [place] % (Auto) Eos % (Auto) Lymph # [place] # Eos # Seg Neutrophils % Seg Neutrophils # PT INR POC ABG pH POC ABG pCO2 POC ABG pO2 VBG pH Sodium Potassium Chloride Carbon Dioxide BUN Creatinine Glucose POC Glucose 130 H 127 H 120 H Magnesium AST ALT Alkaline Phosphatase Total Creatine Kinase NT-Pro-B Natriuret Pep Albumin Urine WBC (Auto) Crossmatch 11/17/18 11/17/18 11/17/18 05:48 08:02 08:02 WBC RBC Hgb 7.5 L Hct 23.5 L MCH MCHC RDW Plt Count Lymph % (Auto) [place] % (Auto) Eos % (Auto) Lymph # [place] # Eos # Seg Neutrophils % Seg Neutrophils # PT INR POC ABG pH POC ABG pCO2 POC ABG pO2 VBG pH Sodium Potassium Chloride 110.1 H Carbon Dioxide 21 L BUN 38 H Creatinine Glucose 121 H POC Glucose 130 H Magnesium AST ALT Alkaline Phosphatase Total Creatine Kinase NT-Pro-B Natriuret Pep Albumin Urine WBC (Auto) Crossmatch 11/17/18 11/17/18 11/18/18 12:17 16:48 06:00 WBC RBC Hgb Hct MCH MCHC RDW Plt Count Lymph % (Auto) [place] % (Auto) Eos % (Auto) Lymph # [place] # Eos # Seg Neutrophils % Seg Neutrophils # PT INR POC ABG pH POC ABG pCO2 POC ABG pO2 VBG pH Sodium Potassium Chloride Carbon Dioxide BUN Creatinine Glucose POC Glucose 140 H 120 H 137 H Magnesium AST ALT Alkaline Phosphatase Total Creatine Kinase NT-Pro-B Natriuret Pep Albumin Urine WBC (Auto) Crossmatch 11/19/18 11/19/18 11/19/18 00:20 05:35 06:11 WBC RBC Hgb Hct MCH MCHC RDW Plt Count Lymph % (Auto) [place] % (Auto) Eos % (Auto) Lymph # [place] # Eos # Seg Neutrophils % Seg Neutrophils # PT INR POC ABG pH POC ABG pCO2 POC ABG pO2 VBG pH Sodium Potassium Chloride Carbon Dioxide BUN Creatinine Glucose POC Glucose 111 H 126 H Magnesium AST ALT Alkaline Phosphatase Total Creatine Kinase 53 L NT-Pro-B Natriuret Pep Albumin Urine WBC (Auto) Crossmatch 11/19/18 11/19/18 11/20/18 11:37 23:43 06:52 WBC RBC Hgb Hct MCH MCHC RDW Plt Count Lymph % (Auto) [place] % (Auto) Eos % (Auto) Lymph # [place] # Eos # Seg Neutrophils % Seg Neutrophils # PT INR POC ABG pH POC ABG pCO2 POC ABG pO2 VBG pH Sodium Potassium Chloride Carbon Dioxide BUN Creatinine Glucose POC Glucose 139 H 145 H 125 H Magnesium AST ALT Alkaline Phosphatase Total Creatine Kinase NT-Pro-B Natriuret Pep Albumin Urine WBC (Auto) Crossmatch 11/20/18 11/20/18 11/20/18 09:55 09:55 11:49 WBC RBC 3.04 L Hgb 8.4 L Hct 26.1 L MCH MCHC RDW 17.5 H Plt Count Lymph % (Auto) [place] % (Auto) Eos % (Auto) Lymph # [place] # Eos # Seg Neutrophils % Seg Neutrophils # PT INR POC ABG pH POC ABG pCO2 POC ABG pO2 VBG pH Sodium 149 H Potassium Chloride 114.5 H Carbon Dioxide 21 L BUN 35 H Creatinine Glucose 127 H POC Glucose 150 H Magnesium AST ALT Alkaline Phosphatase Total Creatine Kinase NT-Pro-B Natriuret Pep Albumin Urine WBC (Auto) Crossmatch 11/20/18 11/20/18 11/21/18 18:02 23:49 06:14 WBC RBC Hgb Hct MCH MCHC RDW Plt Count Lymph % (Auto) [place] % (Auto) Eos % (Auto) Lymph # [place] # Eos # Seg Neutrophils % Seg Neutrophils # PT INR POC ABG pH POC ABG pCO2 POC ABG pO2 VBG pH Sodium Potassium Chloride Carbon Dioxide BUN Creatinine Glucose POC Glucose 131 H 137 H 133 H Magnesium AST ALT Alkaline Phosphatase Total Creatine Kinase NT-Pro-B Natriuret Pep Albumin Urine WBC (Auto) Crossmatch 11/21/18 11/21/18 11/21/18 10:00 12:09 18:04 WBC RBC Hgb Hct MCH MCHC RDW Plt Count Lymph % (Auto) [place] % (Auto) Eos % (Auto) Lymph # [place] # Eos # Seg Neutrophils % Seg Neutrophils # PT INR POC ABG pH POC ABG pCO2 POC ABG pO2 VBG pH Sodium Potassium Chloride 110.6 H Carbon Dioxide BUN 31 H Creatinine Glucose 119 H POC Glucose 116 H 126 H Magnesium AST ALT Alkaline Phosphatase Total Creatine Kinase NT-Pro-B Natriuret Pep Albumin Urine WBC (Auto) Crossmatch 11/22/18 11/22/18 11/22/18 00:14 05:47 06:23 WBC RBC Hgb Hct MCH MCHC RDW Plt Count Lymph % (Auto) [place] % (Auto) Eos % (Auto) Lymph # [place] # Eos # Seg Neutrophils % Seg Neutrophils # PT INR POC ABG pH POC ABG pCO2 POC ABG pO2 VBG pH Sodium Potassium Chloride 107.6 H Carbon Dioxide BUN 32 H Creatinine 0.7 L Glucose 116 H POC Glucose 122 H 119 H Magnesium AST ALT Alkaline Phosphatase Total Creatine Kinase NT-Pro-B Natriuret Pep Albumin Urine WBC (Auto) Crossmatch 11/22/18 11/22/18 11/22/18 08:40 12:19 17:39 WBC RBC Hgb Hct MCH MCHC RDW Plt Count Lymph % (Auto) [place] % (Auto) Eos % (Auto) Lymph # [place] # Eos # Seg Neutrophils % Seg Neutrophils # PT INR POC ABG pH POC ABG pCO2 POC ABG pO2 VBG pH Sodium Potassium Chloride Carbon Dioxide BUN Creatinine Glucose POC Glucose 150 H 111 H 108 H Magnesium AST ALT Alkaline Phosphatase Total Creatine Kinase NT-Pro-B Natriuret Pep Albumin Urine WBC (Auto) Crossmatch 11/23/18 11/23/18 11/23/18 00:36 05:37 05:56 WBC RBC Hgb Hct MCH MCHC RDW Plt Count Lymph % (Auto) [place] % (Auto) Eos % (Auto) Lymph # [place] # Eos # Seg Neutrophils % Seg Neutrophils # PT INR POC ABG pH POC ABG pCO2 POC ABG pO2 VBG pH Sodium 136 L Potassium Chloride Carbon Dioxide BUN 30 H Creatinine 0.7 L Glucose 103 H POC Glucose 125 H 122 H Magnesium 2.50 H AST ALT Alkaline Phosphatase Total Creatine Kinase NT-Pro-B Natriuret Pep Albumin Urine WBC (Auto) Crossmatch 11/23/18 11/23/18 11/23/18 11:56 17:39 23:40 WBC RBC Hgb Hct MCH MCHC RDW Plt Count Lymph % (Auto) [place] % (Auto) Eos % (Auto) Lymph # [place] # Eos # Seg Neutrophils % Seg Neutrophils # PT INR POC ABG pH POC ABG pCO2 POC ABG pO2 VBG pH Sodium Potassium Chloride Carbon Dioxide BUN Creatinine Glucose POC Glucose 121 H 113 H 117 H Magnesium AST ALT Alkaline Phosphatase Total Creatine Kinase NT-Pro-B Natriuret Pep Albumin Urine WBC (Auto) Crossmatch 11/24/18 11/24/18 11/24/18 05:13 12:00 18:13 WBC RBC Hgb Hct MCH MCHC RDW Plt Count Lymph % (Auto) [place] % (Auto) Eos % (Auto) Lymph # [place] # Eos # Seg Neutrophils % Seg Neutrophils # PT INR POC ABG pH POC ABG pCO2 POC ABG pO2 VBG pH Sodium Potassium Chloride Carbon Dioxide BUN Creatinine Glucose POC Glucose 143 H 123 H 124 H Magnesium AST ALT Alkaline Phosphatase Total Creatine Kinase NT-Pro-B Natriuret Pep Albumin Urine WBC (Auto) Crossmatch 11/24/18 11/25/18 11/25/18 23:34 05:25 05:25 WBC RBC 2.48 L Hgb 6.8 L Hct 21.2 L MCH MCHC RDW 17.7 H Plt Count Lymph % (Auto) [place] % (Auto) Eos % (Auto) Lymph # [place] # Eos # Seg Neutrophils % Seg Neutrophils # PT INR POC ABG pH POC ABG pCO2 POC ABG pO2 VBG pH Sodium Potassium Chloride 108.8 H Carbon Dioxide BUN 30 H Creatinine 0.7 L Glucose 112 H POC Glucose 115 H Magnesium AST ALT Alkaline Phosphatase Total Creatine Kinase NT-Pro-B Natriuret Pep Albumin Urine WBC (Auto) Crossmatch 11/25/18 11/25/18 11/25/18 06:46 11:15 11:28 WBC RBC Hgb 7.4 L Hct 23.0 L MCH MCHC RDW Plt Count Lymph % (Auto) [place] % (Auto) Eos % (Auto) Lymph # [place] # Eos # Seg Neutrophils % Seg Neutrophils # PT INR POC ABG pH POC ABG pCO2 POC ABG pO2 VBG pH Sodium Potassium Chloride Carbon Dioxide BUN Creatinine Glucose POC Glucose 133 H 127 H Magnesium AST ALT Alkaline Phosphatase Total Creatine Kinase NT-Pro-B Natriuret Pep Albumin Urine WBC (Auto) Crossmatch 11/25/18 11/25/18 11/25/18 15:28 17:32 23:45 WBC RBC Hgb Hct MCH MCHC RDW Plt Count Lymph % (Auto) [place] % (Auto) Eos % (Auto) Lymph # [place] # Eos # Seg Neutrophils % Seg Neutrophils # PT INR POC ABG pH POC ABG pCO2 POC ABG pO2 VBG pH Sodium Potassium Chloride Carbon Dioxide BUN Creatinine Glucose POC Glucose 115 H 130 H Magnesium AST ALT Alkaline Phosphatase Total Creatine Kinase NT-Pro-B Natriuret Pep Albumin Urine WBC (Auto) Crossmatch See Detail 11/26/18 11/26/18 11/26/18 06:13 06:20 06:20 WBC RBC 2.76 L Hgb 7.7 L Hct 23.4 L MCH MCHC RDW 17.5 H Plt Count Lymph % (Auto) [place] % (Auto) Eos % (Auto) Lymph # [place] # Eos # Seg Neutrophils % Seg Neutrophils # PT INR POC ABG pH POC ABG pCO2 POC ABG pO2 VBG pH Sodium Potassium Chloride 109.9 H Carbon Dioxide BUN 30 H Creatinine 0.6 L Glucose 121 H POC Glucose 129 H Magnesium AST ALT Alkaline Phosphatase Total Creatine Kinase NT-Pro-B Natriuret Pep Albumin Urine WBC (Auto) Crossmatch 11/26/18 11/26/18 11/27/18 12:06 16:35 06:04 WBC RBC Hgb Hct MCH MCHC RDW Plt Count Lymph % (Auto) [place] % (Auto) Eos % (Auto) Lymph # [place] # Eos # Seg Neutrophils % Seg Neutrophils # PT INR POC ABG pH POC ABG pCO2 POC ABG pO2 VBG pH Sodium Potassium Chloride Carbon Dioxide BUN Creatinine Glucose POC Glucose 139 H 107 H 126 H Magnesium AST ALT Alkaline Phosphatase Total Creatine Kinase NT-Pro-B Natriuret Pep Albumin Urine WBC (Auto) Crossmatch 11/27/18 11/27/18 11/28/18 13:14 17:47 07:03 WBC RBC Hgb Hct MCH MCHC RDW Plt Count Lymph % (Auto) [place] % (Auto) Eos % (Auto) Lymph # [place] # Eos # Seg Neutrophils % Seg Neutrophils # PT INR POC ABG pH POC ABG pCO2 POC ABG pO2 VBG pH Sodium Potassium Chloride Carbon Dioxide BUN Creatinine Glucose POC Glucose 130 H 115 H 118 H Magnesium AST ALT Alkaline Phosphatase Total Creatine Kinase NT-Pro-B Natriuret Pep Albumin Urine WBC (Auto) Crossmatch 11/28/18 11/29/18 11/29/18 11:38 00:35 04:56 WBC RBC Hgb Hct MCH MCHC RDW Plt Count Lymph % (Auto) [place] % (Auto) Eos % (Auto) Lymph # [place] # Eos # Seg Neutrophils % Seg Neutrophils # PT INR POC ABG pH POC ABG pCO2 POC ABG pO2 VBG pH Sodium Potassium Chloride Carbon Dioxide BUN Creatinine Glucose POC Glucose 126 H 107 H Magnesium AST ALT Alkaline Phosphatase Total Creatine Kinase 50 L NT-Pro-B Natriuret Pep Albumin Urine WBC (Auto) Crossmatch 11/29/18 11/29/18 11/29/18 05:49 11:46 18:17 WBC RBC Hgb Hct MCH MCHC RDW Plt Count Lymph % (Auto) [place] % (Auto) Eos % (Auto) Lymph # [place] # Eos # Seg Neutrophils % Seg Neutrophils # PT INR POC ABG pH POC ABG pCO2 POC ABG pO2 VBG pH Sodium Potassium Chloride Carbon Dioxide BUN Creatinine Glucose POC Glucose 128 H 140 H 115 H Magnesium AST ALT Alkaline Phosphatase Total Creatine Kinase NT-Pro-B Natriuret Pep Albumin Urine WBC (Auto) Crossmatch 11/30/18 11/30/18 11/30/18 00:00 03:30 03:30 WBC RBC 2.97 L Hgb 8.1 L Hct 25.5 L MCH 27 L MCHC RDW 17.7 H Plt Count Lymph % (Auto) 9.2 L [place] % (Auto) 10.0 H Eos % (Auto) 4.6 H Lymph # 1.0 L [place] # 1.1 H Eos # 0.5 H Seg Neutrophils % 75.6 H Seg Neutrophils # 8.4 H PT INR POC ABG pH POC ABG pCO2 POC ABG pO2 VBG pH Sodium Potassium Chloride Carbon Dioxide BUN 31 H Creatinine 0.7 L Glucose POC Glucose 120 H Magnesium AST ALT Alkaline Phosphatase Total Creatine Kinase NT-Pro-B Natriuret Pep Albumin Urine WBC (Auto) Crossmatch 11/30/18 11/30/18 11/30/18 06:54 11:45 16:59 WBC RBC Hgb Hct MCH MCHC RDW Plt Count Lymph % (Auto) [place] % (Auto) Eos % (Auto) Lymph # [place] # Eos # Seg Neutrophils % Seg Neutrophils # PT INR POC ABG pH POC ABG pCO2 POC ABG pO2 VBG pH Sodium Potassium Chloride Carbon Dioxide BUN Creatinine Glucose POC Glucose 120 H 123 H 111 H Magnesium AST ALT Alkaline Phosphatase Total Creatine Kinase NT-Pro-B Natriuret Pep Albumin Urine WBC (Auto) Crossmatch 12/01/18 12/01/18 12/01/18 00:20 05:58 11:33 WBC RBC Hgb Hct MCH MCHC RDW Plt Count Lymph % (Auto) [place] % (Auto) Eos % (Auto) Lymph # [place] # Eos # Seg Neutrophils % Seg Neutrophils # PT INR POC ABG pH POC ABG pCO2 POC ABG pO2 VBG pH Sodium Potassium Chloride Carbon Dioxide BUN Creatinine Glucose POC Glucose 113 H 127 H 138 H Magnesium AST ALT Alkaline Phosphatase Total Creatine Kinase NT-Pro-B Natriuret Pep Albumin Urine WBC (Auto) Crossmatch 12/02/18 12/03/18 12/03/18 00:33 05:07 05:07 WBC RBC 2.93 L Hgb 8.2 L Hct 24.9 L MCH MCHC RDW 17.0 H Plt Count 470 H Lymph % (Auto) 9.3 L [place] % (Auto) 8.6 H Eos % (Auto) 5.4 H Lymph # 0.9 L [place] # Eos # 0.5 H Seg Neutrophils % 75.8 H Seg Neutrophils # PT INR POC ABG pH POC ABG pCO2 POC ABG pO2 VBG pH Sodium Potassium Chloride Carbon Dioxide BUN 30 H Creatinine 0.6 L Glucose 115 H POC Glucose 110 H Magnesium AST ALT Alkaline Phosphatase Total Creatine Kinase NT-Pro-B Natriuret Pep Albumin Urine WBC (Auto) Crossmatch 12/03/18 12/03/18 12/03/18 05:58 11:49 17:44 WBC RBC Hgb Hct MCH MCHC RDW Plt Count Lymph % (Auto) [place] % (Auto) Eos % (Auto) Lymph # [place] # Eos # Seg Neutrophils % Seg Neutrophils # PT INR POC ABG pH POC ABG pCO2 POC ABG pO2 VBG pH Sodium Potassium Chloride Carbon Dioxide BUN Creatinine Glucose POC Glucose 127 H 138 H 127 H Magnesium AST ALT Alkaline Phosphatase Total Creatine Kinase NT-Pro-B Natriuret Pep Albumin Urine WBC (Auto) Crossmatch 12/05/18 12/05/18 12/05/18 00:22 05:53 17:18 WBC RBC Hgb Hct MCH MCHC RDW Plt Count Lymph % (Auto) [place] % (Auto) Eos % (Auto) Lymph # [place] # Eos # Seg Neutrophils % Seg Neutrophils # PT INR POC ABG pH POC ABG pCO2 POC ABG pO2 VBG pH Sodium Potassium Chloride Carbon Dioxide BUN Creatinine Glucose POC Glucose 124 H 121 H 112 H Magnesium AST ALT Alkaline Phosphatase Total Creatine Kinase NT-Pro-B Natriuret Pep Albumin Urine WBC (Auto) Crossmatch 12/06/18 12/06/18 12/06/18 00:07 06:16 11:43 WBC RBC Hgb Hct MCH MCHC RDW Plt Count Lymph % (Auto) [place] % (Auto) Eos % (Auto) Lymph # [place] # Eos # Seg Neutrophils % Seg Neutrophils # PT INR POC ABG pH POC ABG pCO2 POC ABG pO2 VBG pH Sodium Potassium Chloride Carbon Dioxide BUN Creatinine Glucose POC Glucose 111 H 117 H 121 H Magnesium AST ALT Alkaline Phosphatase Total Creatine Kinase NT-Pro-B Natriuret Pep Albumin Urine WBC (Auto) Crossmatch 12/06/18 12/07/18 12/07/18 20:57 06:41 12:09 WBC RBC Hgb Hct MCH MCHC RDW Plt Count Lymph % (Auto) [place] % (Auto) Eos % (Auto) Lymph # [place] # Eos # Seg Neutrophils % Seg Neutrophils # PT INR POC ABG pH POC ABG pCO2 POC ABG pO2 VBG pH Sodium Potassium Chloride 107.2 H Carbon Dioxide BUN 27 H Creatinine 0.7 L Glucose POC Glucose 128 H 137 H Magnesium 2.50 H AST ALT Alkaline Phosphatase Total Creatine Kinase NT-Pro-B Natriuret Pep Albumin Urine WBC (Auto) Crossmatch 12/07/18 12/08/18 12/08/18 19:29 05:44 12:27 WBC RBC Hgb Hct MCH MCHC RDW Plt Count Lymph % (Auto) [place] % (Auto) Eos % (Auto) Lymph # [place] # Eos # Seg Neutrophils % Seg Neutrophils # PT INR POC ABG pH POC ABG pCO2 POC ABG pO2 VBG pH Sodium Potassium Chloride Carbon Dioxide BUN Creatinine Glucose POC Glucose 110 H 126 H 130 H Magnesium AST ALT Alkaline Phosphatase Total Creatine Kinase NT-Pro-B Natriuret Pep Albumin Urine WBC (Auto) Crossmatch 12/08/18 12/09/18 12/09/18 17:44 00:20 06:42 WBC RBC Hgb Hct MCH MCHC RDW Plt Count Lymph % (Auto) [place] % (Auto) Eos % (Auto) Lymph # [place] # Eos # Seg Neutrophils % Seg Neutrophils # PT INR POC ABG pH POC ABG pCO2 POC ABG pO2 VBG pH Sodium Potassium Chloride Carbon Dioxide BUN Creatinine Glucose POC Glucose 113 H 121 H 124 H Magnesium AST ALT Alkaline Phosphatase Total Creatine Kinase NT-Pro-B Natriuret Pep Albumin Urine WBC (Auto) Crossmatch 12/09/18 12/09/18 12/09/18 12:24 18:41 23:48 WBC RBC Hgb Hct MCH MCHC RDW Plt Count Lymph % (Auto) [place] % (Auto) Eos % (Auto) Lymph # [place] # Eos # Seg Neutrophils % Seg Neutrophils # PT INR POC ABG pH POC ABG pCO2 POC ABG pO2 VBG pH Sodium Potassium Chloride Carbon Dioxide BUN Creatinine Glucose POC Glucose 114 H 109 H 128 H Magnesium AST ALT Alkaline Phosphatase Total Creatine Kinase NT-Pro-B Natriuret Pep Albumin Urine WBC (Auto) Crossmatch 12/10/18 12/10/18 12/11/18 07:07 11:28 00:24 WBC RBC Hgb Hct MCH MCHC RDW Plt Count Lymph % (Auto) [place] % (Auto) Eos % (Auto) Lymph # [place] # Eos # Seg Neutrophils % Seg Neutrophils # PT INR POC ABG pH POC ABG pCO2 POC ABG pO2 VBG pH Sodium Potassium Chloride Carbon Dioxide BUN Creatinine Glucose POC Glucose 111 H 110 H 112 H Magnesium AST ALT Alkaline Phosphatase Total Creatine Kinase NT-Pro-B Natriuret Pep Albumin Urine WBC (Auto) Crossmatch 12/11/18 12/11/18 12/11/18 06:44 11:53 18:17 WBC RBC Hgb Hct MCH MCHC RDW Plt Count Lymph % (Auto) [place] % (Auto) Eos % (Auto) Lymph # [place] # Eos # Seg Neutrophils % Seg Neutrophils # PT INR POC ABG pH POC ABG pCO2 POC ABG pO2 VBG pH Sodium Potassium Chloride Carbon Dioxide BUN Creatinine Glucose POC Glucose 111 H 132 H 133 H Magnesium AST ALT Alkaline Phosphatase Total Creatine Kinase NT-Pro-B Natriuret Pep Albumin Urine WBC (Auto) Crossmatch 12/11/18 12/12/18 12/12/18 23:58 00:05 06:11 WBC RBC 2.85 L Hgb 7.8 L Hct 24.4 L MCH 27 L MCHC RDW 17.4 H Plt Count 459 H Lymph % (Auto) [place] % (Auto) 11.2 H Eos % (Auto) 5.4 H Lymph # [place] # 1.1 H Eos # 0.5 H Seg Neutrophils % Seg Neutrophils # PT INR POC ABG pH POC ABG pCO2 POC ABG pO2 VBG pH Sodium Potassium Chloride Carbon Dioxide BUN Creatinine Glucose POC Glucose 126 H 144 H Magnesium AST ALT Alkaline Phosphatase Total Creatine Kinase NT-Pro-B Natriuret Pep Albumin Urine WBC (Auto) Crossmatch 12/12/18 12/12/18 12/13/18 11:42 18:36 00:12 WBC RBC Hgb Hct MCH MCHC RDW Plt Count Lymph % (Auto) [place] % (Auto) Eos % (Auto) Lymph # [place] # Eos # Seg Neutrophils % Seg Neutrophils # PT INR POC ABG pH POC ABG pCO2 POC ABG pO2 VBG pH Sodium Potassium Chloride Carbon Dioxide BUN Creatinine Glucose POC Glucose 106 H 117 H 115 H Magnesium AST ALT Alkaline Phosphatase Total Creatine Kinase NT-Pro-B Natriuret Pep Albumin Urine WBC (Auto) Crossmatch 12/13/18 12/13/18 12/13/18 05:58 11:52 23:57 WBC RBC Hgb Hct MCH MCHC RDW Plt Count Lymph % (Auto) [place] % (Auto) Eos % (Auto) Lymph # [place] # Eos # Seg Neutrophils % Seg Neutrophils # PT INR POC ABG pH POC ABG pCO2 POC ABG pO2 VBG pH Sodium Potassium Chloride Carbon Dioxide BUN Creatinine Glucose POC Glucose 122 H 129 H 125 H Magnesium AST ALT Alkaline Phosphatase Total Creatine Kinase NT-Pro-B Natriuret Pep Albumin Urine WBC (Auto) Crossmatch 12/14/18 12/14/18 12/14/18 04:44 04:44 05:44 WBC RBC 2.56 L Hgb 7.2 L Hct 22.1 L MCH MCHC RDW 17.8 H Plt Count 473 H Lymph % (Auto) [place] % (Auto) 11.5 H Eos % (Auto) 4.8 H Lymph # [place] # 1.1 H Eos # Seg Neutrophils % Seg Neutrophils # PT INR POC ABG pH POC ABG pCO2 POC ABG pO2 VBG pH Sodium 151 H Potassium Chloride 116.7 H Carbon Dioxide BUN 40 H Creatinine Glucose 114 H POC Glucose 117 H Magnesium AST 80 H ALT 67 H Alkaline Phosphatase 247 H Total Creatine Kinase NT-Pro-B Natriuret Pep Albumin 1.9 L Urine WBC (Auto) Crossmatch 12/14/18 12/15/18 12/15/18 11:29 00:01 05:13 WBC RBC 2.68 L Hgb 7.4 L Hct 23.1 L MCH MCHC RDW 17.6 H Plt Count 454 H Lymph % (Auto) 13.3 L [place] % (Auto) 9.7 H Eos % (Auto) 6.9 H Lymph # [place] # Eos # 0.6 H Seg Neutrophils % Seg Neutrophils # PT INR POC ABG pH POC ABG pCO2 POC ABG pO2 VBG pH Sodium Potassium Chloride Carbon Dioxide BUN Creatinine Glucose POC Glucose 115 H 113 H Magnesium AST ALT Alkaline Phosphatase Total Creatine Kinase NT-Pro-B Natriuret Pep Albumin Urine WBC (Auto) Crossmatch 12/15/18 12/15/18 12/15/18 05:13 06:31 11:31 WBC RBC Hgb Hct MCH MCHC RDW Plt Count Lymph % (Auto) [place] % (Auto) Eos % (Auto) Lymph # [place] # Eos # Seg Neutrophils % Seg Neutrophils # PT INR POC ABG pH POC ABG pCO2 POC ABG pO2 VBG pH Sodium 151 H Potassium Chloride 116.4 H Carbon Dioxide BUN 39 H Creatinine Glucose 110 H POC Glucose 130 H 127 H Magnesium AST 85 H ALT 78 H Alkaline Phosphatase 255 H Total Creatine Kinase NT-Pro-B Natriuret Pep Albumin 1.9 L Urine WBC (Auto) Crossmatch 12/15/18 12/16/18 12/16/18 17:54 00:27 00:33 WBC RBC Hgb Hct MCH MCHC RDW Plt Count Lymph % (Auto) [place] % (Auto) Eos % (Auto) Lymph # [place] # Eos # Seg Neutrophils % Seg Neutrophils # PT INR POC ABG pH POC ABG pCO2 POC ABG pO2 VBG pH Sodium Potassium Chloride Carbon Dioxide BUN Creatinine Glucose POC Glucose 122 H 131 H Magnesium AST ALT Alkaline Phosphatase Total Creatine Kinase 50 L NT-Pro-B Natriuret Pep Albumin Urine WBC (Auto) Crossmatch 12/16/18 12/16/18 12/16/18 05:31 11:31 17:22 WBC RBC Hgb Hct MCH MCHC RDW Plt Count Lymph % (Auto) [place] % (Auto) Eos % (Auto) Lymph # [place] # Eos # Seg Neutrophils % Seg Neutrophils # PT INR POC ABG pH POC ABG pCO2 POC ABG pO2 VBG pH Sodium Potassium Chloride Carbon Dioxide BUN Creatinine Glucose POC Glucose 138 H 121 H 114 H Magnesium AST ALT Alkaline Phosphatase Total Creatine Kinase NT-Pro-B Natriuret Pep Albumin Urine WBC (Auto) Crossmatch 12/16/18 12/17/18 12/17/18 23:56 05:01 05:01 WBC 11.1 H RBC 2.96 L Hgb 7.9 L Hct 25.7 L MCH 27 L MCHC 31 L RDW 17.9 H Plt Count 479 H Lymph % (Auto) 11.3 L [place] % (Auto) 7.5 H Eos % (Auto) 4.5 H Lymph # [place] # Eos # 0.5 H Seg Neutrophils % 75.9 H Seg Neutrophils # 8.4 H PT INR POC ABG pH POC ABG pCO2 POC ABG pO2 VBG pH Sodium 155 H Potassium Chloride 121.2 H Carbon Dioxide BUN 41 H Creatinine Glucose 122 H POC Glucose 137 H Magnesium AST 97 H ALT 99 H Alkaline Phosphatase 279 H Total Creatine Kinase NT-Pro-B Natriuret Pep Albumin 1.8 L Urine WBC (Auto) Crossmatch 12/17/18 11:52 WBC RBC Hgb Hct MCH MCHC RDW Plt Count Lymph % (Auto) [place] % (Auto) Eos % (Auto) Lymph # [place] # Eos # Seg Neutrophils % Seg Neutrophils # PT INR POC ABG pH POC ABG pCO2 POC ABG pO2 VBG pH Sodium Potassium Chloride Carbon Dioxide BUN Creatinine Glucose POC Glucose 142 H Magnesium AST ALT Alkaline Phosphatase Total Creatine Kinase NT-Pro-B Natriuret Pep Albumin Urine WBC (Auto) Crossmatch Allied health notes reviewed: nursing
[2018-12-17] MEDS: KEPPRA FEEDTUBE SCH ×2 (17:31→22:07)
[2018-12-17] MEDS: APRESOLINE PO SCH ×2 (17:31→22:07)
[2018-12-17] MEDS: CATAPRES-TTS PATCH TD SCH (17:31)
[2018-12-17] MEDS: TYLENOL FEEDTUBE PRN (23:07)
[2018-12-18 05:55] LABS: Hematocrit 23.8 % (35.5-45.6); Hemoglobin 7.5 gm/dl (11.8-15.2); Mean Corpuscular HGB Conc 31 % (32-34); Mean Corpuscular Volume 86 fl (84-94); Platelet Count 427 K/mm3 (140-440); Red Blood Count 2.76 M/mm3 (3.65-5.03); Red Cell Distribution Width 17.8 % (13.2-15.2)
[2018-12-18 06:21] LABS: BUN/Creatinine Ratio 53; Blood Urea Nitrogen 48 mg/dL (9-20); Hemolysis Index 3
--- NOTE | 2018-12-18 10:03 | Progress Note ---
Assessment and Plan Assessment and plan: 7 YO Male [facility] Res[facility] with HTN, CVA, Obstructive Uropathy, Diastolic CHF, Contracture, Sacral Decubitus Ulcers, [place], DM, OA, Seizure Disorder, COPD, Dementia, BPH presents to ED for evaluation. Pt is stuporous and unable to provide history. Pt history taken from ED Staff, EMS, and SNF Staff. As per staff, the patient was found to have respiratory distress upon evaluation this morning. Pt found to have pulse oximetry in the 80's. EMS notified and patient subsequently transported to [facility] for further care and evaluation. Pt seen and evaluated in ED and found to have UTI, Sepsis, Encephalopathy as well as Acute Hypoxemic Respiratory Failure. Extensive discussion with family about patients poor prognosis surgery consulted, did debridment ID following, Pulmonary status improved Continue isolation care Chaudhary placed by Urology. 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 He needs to be on contact isolation. This cannot be cured with antibiotics. recommend palliative care/comfort care or hospice, family are not interested in that option. Completed daptomycin for 6 weeks completed 12/16/2018 Sacral pressure ulcer -infected. POA Debridement done by Dr Man Amputation recommended and the daughter refused Respiratory failure Supplemental oxygen, nebulizer therapy, mgt per pulmonology ANEMIA of chronic disease Transfused one unit PRBC hemoglobin is stable Transfuse as necessary Seizure Continue current therapy, seizure precautions. BPH Continue Chaudhary catherter Dementia supportive care DVT prophylaxis Prophylactic lovenox POOR PROGNOSIS Disposition; pending SNF placement. . History Interval history: No new complaints Hospitalist Physical - Physical exam Narrative exam: Gen: Not in acute distress. lying in bed Head exam is unremarkable. No scleral icterus . Neck is without jugular venous distension, thyromegaly, or carotid bruits. Lungs are clear to auscultation. Cardiac exam reveals regular rate and Rhythm. First and second heart sounds normal. No murmurs, rubs or gallops. Abdominal exam reveals non tender, not distended,normal bowel sounds, no masses, Extremities contracted extremities. [employer]: Awake,alert, contracted extremities Skin; multiple decubitus ulcers, including the sacrum , lower extremities bilateral. - Constitutional Vitals: Temp Pulse Resp BP Pulse Ox 97.8 F 80 18 127/70 97 12/18/18 07:48 12/18/18 07:48 12/18/18 07:48 12/18/18 07:48 12/18/18 07:48 General appearance: Present: no acute distress, well-nourished Results - Labs CBC & Chem 7: 12/18/18 05:40 12/18/18 05:40 Labs: Laboratory Last Values WBC 11.7 K/mm3 (4.5-11.0) H 12/18/18 05:40 RBC 2.76 M/mm3 (3.65-5.03) L 12/18/18 05:40 Hgb 7.5 gm/dl (11.8-15.2) L 12/18/18 05:40 Hct 23.8 % (35.5-45.6) L 12/18/18 05:40 MCV 86 fl (84-94) 12/18/18 05:40 MCH 27 pg (28-32) L 12/18/18 05:40 MCHC 31 % (32-34) L 12/18/18 05:40 RDW 17.8 % (13.2-15.2) H 12/18/18 05:40 Plt Count 427 K/mm3 (140-440) 12/18/18 05:40 Lymph % (Auto) 11.3 % (13.4-35.0) L 12/17/18 05:01 [place] % (Auto) 7.5 % (0.0-7.3) H 12/17/18 05:01 Eos % (Auto) 4.5 % (0.0-4.3) H 12/17/18 05:01 Baso % (Auto) 0.8 % (0.0-1.8) 12/17/18 05:01 Lymph # 1.3 K/mm3 (1.2-5.4) 12/17/18 05:01 [place] # 0.8 K/mm3 (0.0-0.8) 12/17/18 05:01 Eos # 0.5 K/mm3 (0.0-0.4) H 12/17/18 05:01 Baso # 0.1 K/mm3 (0.0-0.1) 12/17/18 05:01 Seg Neutrophils % 75.9 % (40.0-70.0) H 12/17/18 05:01 Seg Neutrophils # 8.4 K/mm3 (1.8-7.7) H 12/17/18 05:01 PT 16.3 Sec. (12.2-14.9) H 11/01/18 14:50 INR 1.35 (0.87-1.13) H 11/01/18 14:50 POC ABG pH 7.494 (7.35-7.45) H 11/01/18 15:27 POC ABG pCO2 34.5 (35-45) L 11/01/18 15:27 POC ABG pO2 139 (80-105) H 11/01/18 15:27 POC ABG HCO3 26.5 (22-26 mml/L) 11/01/18 15:27 POC ABG Total CO2 28 (23-27mmol/L) 11/01/18 15:27 POC ABG O2 Sat 99 11/01/18 15:27 POC ABG Base Excess 3 ((-2) - (+3)mmol/L) 11/01/18 15:27 VBG pH 7.499 (7.320-7.420) H 11/01/18 14:50 50 % 11/01/18 15:27 Sodium 153 mmol/L (137-145) H 12/18/18 05:40 Potassium 4.2 mmol/L (3.6-5.0) 12/18/18 05:40 Chloride 117.6 mmol/L (98-107) H 12/18/18 05:40 Carbon Dioxide 25 mmol/L (22-30) 12/18/18 05:40 15 mmol/L 12/18/18 05:40 BUN 48 mg/dL (9-20) H 12/18/18 05:40 0.9 mg/dL (0.8-1.5) 12/18/18 05:40 Estimated GFR > 60 ml/min 12/18/18 05:40 53 % 12/18/18 05:40 Glucose 122 mg/dL (75-100) H 12/18/18 05:40 POC Glucose 138 (70-105) H 12/18/18 05:39 Lactic Acid 1.80 mmol/L (0.7-2.0) 11/01/18 14:50 Calcium 9.0 mg/dL (8.4-10.2) 12/18/18 05:40 Phosphorus 2.90 mg/dL (2.5-4.5) 11/22/18 09:43 Magnesium 2.50 mg/dL (1.7-2.3) H 12/06/18 20:57 0.20 mg/dL (0.1-1.2) 12/17/18 05:01 AST 97 units/L (5-40) H 12/17/18 05:01 ALT 99 units/L (7-56) H 12/17/18 05:01 279 units/L (35-129) H 12/17/18 05:01 50 units/L (55-170) L 12/16/18 00:27 NT-Pro-B Natriuret Pep 6776 pg/mL (0-900) H 11/01/18 14:50 7.7 g/dL (6.3-8.2) 12/17/18 05:01 1.8 g/dL (3.9-5) L 12/17/18 05:01 0.3 % 12/17/18 05:01 14 units/L (13-60) 11/25/18 15:07 Yellow (Yellow) 11/01/18 15:57 Turbid (Clear) 11/01/18 15:57 6.0 (5.0-7.0) 11/01/18 15:57 Ur Specific [place] 1.016 (1.003-1.030) 11/01/18 15:57 100 mg/dl mg/dL (Negative) 11/01/18 15:57 Neg mg/dL (Negative) 11/01/18 15:57 Neg mg/dL (Negative) 11/01/18 15:57 Neg (Negative) 11/01/18 15:57 Neg (Negative) 11/01/18 15:57 Neg (Negative) 11/01/18 15:57 < 2.0 mg/dL (<2.0) 11/01/18 15:57 Ur Leukocyte Esterase Mod (Negative) 11/01/18 15:57 > 182.0 /HPF (0.0-6.0) H 11/01/18 15:57 40.0 /HPF (0.0-6.0) 11/01/18 15:57 U Epithel Cells (Auto) 8.0 /HPF (0-13.0) 11/01/18 15:57 3+ /HPF 11/01/18 15:57 3+ /HPF 11/01/18 15:57 Random Vancomycin 13.9 ug/mL (0-40.0) 11/02/18 05:05 Blood Type O POSITIVE 11/25/18 15:28 Antibody Screen Negative 11/25/18 15:28 Crossmatch See Detail 11/25/18 15:28 Active Medications - Current Medications Current Medications: Generic Name Dose Route Start Last Admin Trade Name Freq PRN Reason Stop Dose Admin Acetaminophen 650 mg 12/11/18 15:21 12/17/18 23:07 Tylenol FEEDTUBE 650 mg Q6H PRN Administration Pain, Mild (1-3) Albuterol 2.5 mg 11/01/18 17:15 Proventil IH Q3HRT PRN Shortness Of Breath Lipase/Protease/Amylase 1 each 12/16/18 13:[address] 10,500 Unit FEEDTUBE PRN PRN For Clogged Feeding Tube Ascorbic Acid 500 mg 11/01/18 22:00 12/17/18 22:08 Vitamin C FEEDTUBE 500 mg BID NORA Administration Atorvastatin Calcium 40 mg 11/01/18 22:00 12/17/18 22:07 Lipitor FEEDTUBE 40 mg QHS NORA Administration Carvedilol 6.25 mg 11/08/18 13:00 12/17/18 22:07 Coreg PO 6.25 mg BID NORA Administration Clonidine HCl 0.2 mg 11/05/18 17:18 12/17/18 17:31 Catapres-Tts Patch TD 0.2 mg Tu NORA Administration Enoxaparin Sodium 40 mg 11/02/18 10:00 12/17/18 09:51 Lovenox SUB-Q 40 mg QDAY@1000 NORA Administration Hydralazine HCl 10 mg 11/25/18 22:00 12/17/18 22:07 Apresoline PO 10 mg Q12HR NORA Administration Dextrose 1,000 mls @ 75 mls/hr 12/16/18 09:30 12/17/18 22:07 D5w IV 75 mls/hr DIRECT NORA Administration Levetiracetam 500 mg 11/01/18 22:00 12/17/18 22:07 Keppra FEEDTUBE 500 mg BID NORA Administration Mineral Oil 133 ml 12/10/18 14:55 Fleet Mineral Oil [place] QDAY PRN Constipation Morphine Sulfate 2 mg 11/01/18 17:15 12/10/18 23:15 Morphine IV 2 mg Q4H PRN Administration Pain, Moderate (4-6) Multivitamins 5 ml 11/02/18 10:00 12/17/18 09:52 Centrum Liq FEEDTUBE 5 ml QDAY NORA Administration Polyethylene Glycol 17 gm 12/10/18 15:00 12/17/18 09:52 Miralax 3350 FEEDTUBE 17 gm QDAY NORA Administration Senna 8.6 mg 12/10/18 14:56 Senokot FEEDTUBE Q12H PRN Laxative Effect Simple Syrup 15 ml 12/16/18 13:57 Simple Syrup FEEDTUBE PRN PRN Hypoglycemia Simple Syrup 30 ml 12/16/18 13:57 Simple Syrup FEEDTUBE PRN PRN Hypoglycemia Sodium Bicarbonate 325 mg 12/16/18 13:57 Sodium Bicarbonate FEEDTUBE PRN PRN For Clogged Feeding Tube Sodium Biphosphate/Sodium Phosphate 133 ml 12/10/18 14:55 Fleet [place] QDAY PRN Bowel Movement Sodium Chloride 10 ml 11/01/18 22:00 12/17/18 22:08 Sodium Chloride Flush Syringe 10 Ml IV 10 ml BID NORA Administration Sodium Chloride 10 ml 11/01/18 17:15 11/23/18 04:05 Sodium Chloride Flush Syringe 10 Ml IV 10 ml PRN PRN Administration LINE FLUSH Zinc Sulfate 220 mg 11/02/18 10:00 12/17/18 09:52 Zinc Sulfate PO 220 mg DAILY NORA Administration Nutrition/Malnutrition Assess - Dietary Evaluation Nutrition/Malnutrition Findings: Nutrition Notes Start: 11/04/18 16:00 Freq: Status: Active Protocol: Document 12/17/18 14:03 CHANDRAKANT (Rec: 12/17/18 14:05 CHANDRAKANT [id number]) Nutrition Notes Initial or Follow up Brief Note Current Diet TF - Glucerna 1.2 at 70ml/hr + Mario BID Subjective/Other Information Observed Nepro still infusing at 40ml/hr. RN informed of TF formula change with addition of Mario BID. RN to change TF formula and administer Mario. Nutrition Intervention Follow-Up By: 12/18/18 Additional Comments F/U: TF formula change + Mario
[2018-12-18] MEDS: LOVENOX SUB-Q SCH (10:08)
[2018-12-18] MEDS: ZINC SULFATE PO SCH (10:08)
[2018-12-18] MEDS: Centrum Liq FEEDTUBE SCH (10:09)
[2018-12-18] MEDS: APRESOLINE PO SCH ×2 (10:09→23:56)
[2018-12-18] MEDS: MIRALAX 3350 FEEDTUBE SCH (10:10)
[2018-12-18] MEDS: KEPPRA FEEDTUBE SCH ×2 (10:10→23:56)
[2018-12-18] MEDS: VITAMIN C FEEDTUBE SCH ×2 (10:10→23:56)
[2018-12-18] MEDS: COREG PO SCH ×2 (10:10→23:55)
[2018-12-18] MEDS: SODIUM CHLORIDE FLUSH SYRINGE 10 ML IV SCH (10:12)
[2018-12-18] MEDS: D5W 1,000 ML IV SCH (11:42)
--- NOTE | 2018-12-18 18:36 | Progress Note ---
Assessment and Plan Patient is weak and contracted and has multiple pressure wounds. Patients general medical condition unchanged. Patient is sleeping and on room air at this time. No acute respiratory distress. O2 sat 92%. Patient afebrile. Has mild leukocytosis. Antibiotics as per infectious diseases. - Patient Problems (1) Respiratory failure Current Visit: Yes Status: Acute Qualifiers: Chronicity: acute Respiratory failure complication: hypoxia Qualified Code(s): J96.01 - Acute respiratory failure with hypoxia Plan to address problem: Continue O2 supplementation 2 L via nasal canula. Albuterol and Atrovent treatment q6h. Continue SQ Levonox. Recommend GI prophylexis. (2) Seizure Current Visit: Yes Status: Acute Plan to address problem: Management as per neurologist. (3) Sepsis Current Visit: Yes Status: Acute Plan to address problem: Patient treated with Daptomycine . Antibiotic management as per infectious diseases. (4) UTI (urinary tract infection) Current Visit: Yes Status: Acute Qualifiers: Encounter type: initial encounter Plan to address problem: Patient is treated with Daptomycine . Antibiotic management as per infectious diseases. (5) ARF (acute renal failure) with tubular necrosis Current Visit: No Status: Acute Plan to address problem: Management as per Nephrology. Subjective Date of service: 12/18/18 Principal diagnosis: Severe Sepsis; Ac. Hypoxemic Resp failure; Anemia; Seizure; UTI; BPH Interval history: Patient is weak and contracted and has multiple pressure wounds. Patients general medical condition unchanged. Patient is sleeping and on room air at this time. No acute respiratory distress. O2 sat 95%. Patient afebrile.. Has mild leukocytosis. Antibiotics as per infectious diseases. Objective Vital Signs - 12hr 12/18/18 12/18/18 12/18/18 07:48 10:09 10:10 Temperature 97.8 F Pulse Rate 80 80 80 Respiratory 18 Rate Blood Pressure 127/70 127/70 127/70 O2 Sat by Pulse 97 Oximetry 12/18/18 13:17 Temperature 97.7 F Pulse Rate 90 Respiratory 18 Rate Blood Pressure 114/38 O2 Sat by Pulse 99 Oximetry Constitutional: no acute distress, asleep Eyes: non-icteric ENT: oropharynx moist Neck: no lymphadenopathy, no JVD, other (mild stiffness / contracture) Effort: normal Ascultation: Bilateral: diminished breath sounds, rhonchi Percussion: Bilateral: not dull Cardiovascular: regular rate and rhythm Gastrointestinal: normoactive bowel sounds, soft, non-tender, non-distended Integumentary: rash Extremities: no cyanosis, no edema, pulses normal, other (Patient has pressure ulcer at multiple areas, including sacral area.) Neurologic: non-focal exam, pupils equal and round, CN II-XII normal, other (+ contractures) Psychiatric: mood appropriate, affect normal CBC and BMP: 12/18/18 05:40 12/18/18 05:40 ABG, PT/INR, D-dimer: ABG POC ABG pH 7.494 (7.35-7.45) H 11/01/18 15:27 POC ABG pCO2 34.5 (35-45) L 11/01/18 15:27 POC ABG pO2 139 (80-105) H 11/01/18 15:27 POC ABG HCO3 26.5 (22-26 mml/L) 11/01/18 15:27 POC ABG Total CO2 28 (23-27mmol/L) 11/01/18 15:27 POC ABG O2 Sat 99 11/01/18 15:27 PT/INR, D-dimer PT 16.3 Sec. (12.2-14.9) H 11/01/18 14:50 INR 1.35 (0.87-1.13) H 11/01/18 14:50 Abnormal lab findings: Abnormal Labs 11/01/18 11/01/18 11/01/18 14:50 14:50 14:50 WBC 15.3 H RBC 2.76 L Hgb 7.9 L Hct 23.5 L MCH MCHC RDW 18.3 H Plt Count 567 H Lymph % (Auto) 6.5 L Emmet % (Auto) 8.5 H Eos % (Auto) Lymph # 1.0 L Emmet # 1.3 H Eos # Seg Neutrophils % 83.4 H Seg Neutrophils # 12.7 H PT 16.3 H INR 1.35 H POC ABG pH POC ABG pCO2 POC ABG pO2 VBG pH Sodium Potassium Chloride Carbon Dioxide BUN 49 H Creatinine Glucose 132 H POC Glucose Magnesium AST 90 H ALT 77 H Alkaline Phosphatase 350 H Total Creatine Kinase NT-Pro-B Natriuret Pep Albumin 1.6 L Urine WBC (Auto) Crossmatch 11/01/18 11/01/18 11/01/18 14:50 14:50 15:27 WBC RBC Hgb Hct MCH MCHC RDW Plt Count Lymph % (Auto) Emmet % (Auto) Eos % (Auto) Lymph # Emmet # Eos # Seg Neutrophils % Seg Neutrophils # PT INR POC ABG pH 7.494 H POC ABG pCO2 34.5 L POC ABG pO2 139 H VBG pH 7.499 H Sodium Potassium Chloride Carbon Dioxide BUN Creatinine Glucose POC Glucose Magnesium AST ALT Alkaline Phosphatase Total Creatine Kinase NT-Pro-B Natriuret Pep 6776 H Albumin Urine WBC (Auto) Crossmatch 11/01/18 11/03/18 11/03/18 15:57 03:41 03:41 WBC 12.8 H RBC 2.55 L Hgb 6.9 L Hct 22.2 L MCH 27 L MCHC 31 L RDW 17.9 H Plt Count 519 H Lymph % (Auto) Emmet % (Auto) Eos % (Auto) Lymph # Emmet # Eos # Seg Neutrophils % Seg Neutrophils # PT INR POC ABG pH POC ABG pCO2 POC ABG pO2 VBG pH Sodium 147 H Potassium Chloride 110.3 H Carbon Dioxide BUN 55 H Creatinine Glucose POC Glucose Magnesium AST ALT Alkaline Phosphatase Total Creatine Kinase NT-Pro-B Natriuret Pep Albumin Urine WBC (Auto) > 182.0 H Crossmatch 11/03/18 11/04/18 11/04/18 12:51 05:12 05:12 WBC 11.5 H RBC 2.94 L Hgb 8.3 L Hct 25.3 L MCH MCHC RDW 17.3 H Plt Count 514 H Lymph % (Auto) Emmet % (Auto) Eos % (Auto) Lymph # Emmet # Eos # Seg Neutrophils % Seg Neutrophils # PT INR POC ABG pH POC ABG pCO2 POC ABG pO2 VBG pH Sodium 147 H Potassium Chloride 112.4 H Carbon Dioxide BUN 52 H Creatinine Glucose POC Glucose Magnesium AST ALT Alkaline Phosphatase Total Creatine Kinase NT-Pro-B Natriuret Pep Albumin Urine WBC (Auto) Crossmatch See Detail 11/05/18 11/05/18 11/06/18 04:50 04:50 05:42 WBC RBC 3.03 L 2.80 L Hgb 8.7 L 7.9 L Hct 26.6 L 24.7 L MCH MCHC RDW 17.1 H 17.0 H Plt Count 502 H 478 H Lymph % (Auto) 10.4 L Emmet % (Auto) 8.6 H Eos % (Auto) 4.7 H Lymph # 1.0 L Emmet # Eos # 0.5 H Seg Neutrophils % 75.6 H Seg Neutrophils # PT INR POC ABG pH POC ABG pCO2 POC ABG pO2 VBG pH Sodium 149 H Potassium Chloride 114.4 H Carbon Dioxide 21 L BUN 50 H Creatinine Glucose 108 H POC Glucose Magnesium AST ALT Alkaline Phosphatase Total Creatine Kinase NT-Pro-B Natriuret Pep Albumin Urine WBC (Auto) Crossmatch 11/06/18 11/11/18 11/12/18 05:42 18:54 00:22 WBC RBC Hgb Hct MCH MCHC RDW Plt Count Lymph % (Auto) Emmet % (Auto) Eos % (Auto) Lymph # Emmet # Eos # Seg Neutrophils % Seg Neutrophils # PT INR POC ABG pH POC ABG pCO2 POC ABG pO2 VBG pH Sodium 149 H Potassium Chloride 113.4 H Carbon Dioxide BUN 50 H Creatinine Glucose 121 H POC Glucose 114 H 123 H Magnesium AST ALT Alkaline Phosphatase Total Creatine Kinase NT-Pro-B Natriuret Pep Albumin Urine WBC (Auto) Crossmatch 11/12/18 11/12/18 11/13/18 06:49 11:35 06:34 WBC RBC Hgb Hct MCH MCHC RDW Plt Count Lymph % (Auto) Emmet % (Auto) Eos % (Auto) Lymph # Emmet # Eos # Seg Neutrophils % Seg Neutrophils # PT INR POC ABG pH POC ABG pCO2 POC ABG pO2 VBG pH Sodium Potassium Chloride Carbon Dioxide BUN Creatinine Glucose POC Glucose 129 H 123 H 128 H Magnesium AST ALT Alkaline Phosphatase Total Creatine Kinase NT-Pro-B Natriuret Pep Albumin Urine WBC (Auto) Crossmatch 11/13/18 11/13/18 11/13/18 09:26 09:26 15:13 WBC RBC 3.08 L Hgb 8.6 L Hct 27.3 L MCH MCHC 31 L RDW 18.3 H Plt Count 504 H Lymph % (Auto) 11.7 L Emmet % (Auto) 7.5 H Eos % (Auto) 7.0 H Lymph # Emmet # Eos # 0.7 H Seg Neutrophils % 72.9 H Seg Neutrophils # PT INR POC ABG pH POC ABG pCO2 POC ABG pO2 VBG pH Sodium 153 H Potassium 6.3 H* 5.8 H Chloride 122.3 H Carbon Dioxide 21 L BUN 38 H Creatinine Glucose 112 H POC Glucose Magnesium AST ALT Alkaline Phosphatase Total Creatine Kinase NT-Pro-B Natriuret Pep Albumin Urine WBC (Auto) Crossmatch 11/13/18 11/13/18 11/14/18 22:10 23:45 13:17 WBC RBC Hgb Hct MCH MCHC RDW Plt Count Lymph % (Auto) Emmet % (Auto) Eos % (Auto) Lymph # Emmet # Eos # Seg Neutrophils % Seg Neutrophils # PT INR POC ABG pH POC ABG pCO2 POC ABG pO2 VBG pH Sodium 155 H Potassium 5.3 H Chloride 122.3 H Carbon Dioxide BUN 35 H Creatinine Glucose 113 H POC Glucose 111 H 142 H Magnesium AST ALT Alkaline Phosphatase Total Creatine Kinase NT-Pro-B Natriuret Pep Albumin Urine WBC (Auto) Crossmatch 11/14/18 11/15/18 11/15/18 19:08 00:31 06:45 WBC RBC Hgb Hct MCH MCHC RDW Plt Count Lymph % (Auto) Emmet % (Auto) Eos % (Auto) Lymph # Emmet # Eos # Seg Neutrophils % Seg Neutrophils # PT INR POC ABG pH POC ABG pCO2 POC ABG pO2 VBG pH Sodium Potassium Chloride Carbon Dioxide BUN Creatinine Glucose POC Glucose 116 H 125 H 131 H Magnesium AST ALT Alkaline Phosphatase Total Creatine Kinase NT-Pro-B Natriuret Pep Albumin Urine WBC (Auto) Crossmatch 11/15/18 11/15/18 11/15/18 07:13 07:13 19:03 WBC 13.2 H RBC 2.81 L Hgb 7.8 L Hct 24.5 L MCH MCHC RDW 18.2 H Plt Count 454 H Lymph % (Auto) 9.0 L Emmet % (Auto) 7.5 H Eos % (Auto) Lymph # Emmet # 1.0 H Eos # 0.5 H Seg Neutrophils % 78.8 H Seg Neutrophils # 10.4 H PT INR POC ABG pH POC ABG pCO2 POC ABG pO2 VBG pH Sodium 149 H Potassium 5.2 H Chloride 117.2 H Carbon Dioxide BUN 38 H Creatinine Glucose 114 H POC Glucose 141 H Magnesium AST ALT Alkaline Phosphatase Total Creatine Kinase NT-Pro-B Natriuret Pep Albumin Urine WBC (Auto) Crossmatch 11/16/18 11/16/18 11/16/18 01:15 01:15 06:45 WBC RBC Hgb Hct MCH MCHC RDW Plt Count Lymph % (Auto) Emmet % (Auto) Eos % (Auto) Lymph # Emmet # Eos # Seg Neutrophils % Seg Neutrophils # PT INR POC ABG pH POC ABG pCO2 POC ABG pO2 VBG pH Sodium Potassium 5.3 H Chloride Carbon Dioxide BUN Creatinine Glucose POC Glucose 129 H Magnesium 2.60 H AST ALT Alkaline Phosphatase Total Creatine Kinase NT-Pro-B Natriuret Pep Albumin Urine WBC (Auto) Crossmatch 11/16/18 11/16/18 11/17/18 13:20 18:02 00:16 WBC RBC Hgb Hct MCH MCHC RDW Plt Count Lymph % (Auto) Emmet % (Auto) Eos % (Auto) Lymph # Emmet # Eos # Seg Neutrophils % Seg Neutrophils # PT INR POC ABG pH POC ABG pCO2 POC ABG pO2 VBG pH Sodium Potassium Chloride Carbon Dioxide BUN Creatinine Glucose POC Glucose 130 H 127 H 120 H Magnesium AST ALT Alkaline Phosphatase Total Creatine Kinase NT-Pro-B Natriuret Pep Albumin Urine WBC (Auto) Crossmatch 11/17/18 11/17/18 11/17/18 05:48 08:02 08:02 WBC RBC Hgb 7.5 L Hct 23.5 L MCH MCHC RDW Plt Count Lymph % (Auto) Emmet % (Auto) Eos % (Auto) Lymph # Emmet # Eos # Seg Neutrophils % Seg Neutrophils # PT INR POC ABG pH POC ABG pCO2 POC ABG pO2 VBG pH Sodium Potassium Chloride 110.1 H Carbon Dioxide 21 L BUN 38 H Creatinine Glucose 121 H POC Glucose 130 H Magnesium AST ALT Alkaline Phosphatase Total Creatine Kinase NT-Pro-B Natriuret Pep Albumin Urine WBC (Auto) Crossmatch 11/17/18 11/17/18 11/18/18 12:17 16:48 06:00 WBC RBC Hgb Hct MCH MCHC RDW Plt Count Lymph % (Auto) Emmet % (Auto) Eos % (Auto) Lymph # Emmet # Eos # Seg Neutrophils % Seg Neutrophils # PT INR POC ABG pH POC ABG pCO2 POC ABG pO2 VBG pH Sodium Potassium Chloride Carbon Dioxide BUN Creatinine Glucose POC Glucose 140 H 120 H 137 H Magnesium AST ALT Alkaline Phosphatase Total Creatine Kinase NT-Pro-B Natriuret Pep Albumin Urine WBC (Auto) Crossmatch 11/19/18 11/19/1819 00:20 05:35 06:11 WBC RBC Hgb Hct MCH MCHC RDW Plt Count Lymph % (Auto) Emmet % (Auto) Eos % (Auto) Lymph # Emmet # Eos # Seg Neutrophils % Seg Neutrophils # PT INR POC ABG pH POC ABG pCO2 POC ABG pO2 VBG pH Sodium Potassium Chloride Carbon Dioxide BUN Creatinine Glucose POC Glucose 111 H 126 H Magnesium AST ALT Alkaline Phosphatase Total Creatine Kinase 53 L NT-Pro-B Natriuret Pep Albumin Urine WBC (Auto) Crossmatch 11/19/18 11/19/18 11/20/18 11:37 23:43 06:52 WBC RBC Hgb Hct MCH MCHC RDW Plt Count Lymph % (Auto) Emmet % (Auto) Eos % (Auto) Lymph # Emmet # Eos # Seg Neutrophils % Seg Neutrophils # PT INR POC ABG pH POC ABG pCO2 POC ABG pO2 VBG pH Sodium Potassium Chloride Carbon Dioxide BUN Creatinine Glucose POC Glucose 139 H 145 H 125 H Magnesium AST ALT Alkaline Phosphatase Total Creatine Kinase NT-Pro-B Natriuret Pep Albumin Urine WBC (Auto) Crossmatch 11/20/18 11/20/18 11/20/18 09:55 09:55 11:49 WBC RBC 3.04 L Hgb 8.4 L Hct 26.1 L MCH MCHC RDW 17.5 H Plt Count Lymph % (Auto) Emmet % (Auto) Eos % (Auto) Lymph # Emmet # Eos # Seg Neutrophils % Seg Neutrophils # PT INR POC ABG pH POC ABG pCO2 POC ABG pO2 VBG pH Sodium 149 H Potassium Chloride 114.5 H Carbon Dioxide 21 L BUN 35 H Creatinine Glucose 127 H POC Glucose 150 H Magnesium AST ALT Alkaline Phosphatase Total Creatine Kinase NT-Pro-B Natriuret Pep Albumin Urine WBC (Auto) Crossmatch 11/20/18 11/20/18 11/21/18 18:02 23:49 06:14 WBC RBC Hgb Hct MCH MCHC RDW Plt Count Lymph % (Auto) Emmet % (Auto) Eos % (Auto) Lymph # Emmet # Eos # Seg Neutrophils % Seg Neutrophils # PT INR POC ABG pH POC ABG pCO2 POC ABG pO2 VBG pH Sodium Potassium Chloride Carbon Dioxide BUN Creatinine Glucose POC Glucose 131 H 137 H 133 H Magnesium AST ALT Alkaline Phosphatase Total Creatine Kinase NT-Pro-B Natriuret Pep Albumin Urine WBC (Auto) Crossmatch 11/21/18 11/21/18 11/21/18 10:00 12:09 18:04 WBC RBC Hgb Hct MCH MCHC RDW Plt Count Lymph % (Auto) Emmet % (Auto) Eos % (Auto) Lymph # Emmet # Eos # Seg Neutrophils % Seg Neutrophils # PT INR POC ABG pH POC ABG pCO2 POC ABG pO2 VBG pH Sodium Potassium Chloride 110.6 H Carbon Dioxide BUN 31 H Creatinine Glucose 119 H POC Glucose 116 H 126 H Magnesium AST ALT Alkaline Phosphatase Total Creatine Kinase NT-Pro-B Natriuret Pep Albumin Urine WBC (Auto) Crossmatch 11/22/18 11/22/18 11/22/18 00:14 05:47 06:23 WBC RBC Hgb Hct MCH MCHC RDW Plt Count Lymph % (Auto) Emmet % (Auto) Eos % (Auto) Lymph # Emmet # Eos # Seg Neutrophils % Seg Neutrophils # PT INR POC ABG pH POC ABG pCO2 POC ABG pO2 VBG pH Sodium Potassium Chloride 107.6 H Carbon Dioxide BUN 32 H Creatinine 0.7 L Glucose 116 H POC Glucose 122 H 119 H Magnesium AST ALT Alkaline Phosphatase Total Creatine Kinase NT-Pro-B Natriuret Pep Albumin Urine WBC (Auto) Crossmatch 11/22/18 11/22/18 11/22/18 08:40 12:19 17:39 WBC RBC Hgb Hct MCH MCHC RDW Plt Count Lymph % (Auto) Emmet % (Auto) Eos % (Auto) Lymph # Emmet # Eos # Seg Neutrophils % Seg Neutrophils # PT INR POC ABG pH POC ABG pCO2 POC ABG pO2 VBG pH Sodium Potassium Chloride Carbon Dioxide BUN Creatinine Glucose POC Glucose 150 H 111 H 108 H Magnesium AST ALT Alkaline Phosphatase Total Creatine Kinase NT-Pro-B Natriuret Pep Albumin Urine WBC (Auto) Crossmatch 11/23/18 11/23/18 11/23/18 00:36 05:37 05:56 WBC RBC Hgb Hct MCH MCHC RDW Plt Count Lymph % (Auto) Emmet % (Auto) Eos % (Auto) Lymph # Emmet # Eos # Seg Neutrophils % Seg Neutrophils # PT INR POC ABG pH POC ABG pCO2 POC ABG pO2 VBG pH Sodium 136 L Potassium Chloride Carbon Dioxide BUN 30 H Creatinine 0.7 L Glucose 103 H POC Glucose 125 H 122 H Magnesium 2.50 H AST ALT Alkaline Phosphatase Total Creatine Kinase NT-Pro-B Natriuret Pep Albumin Urine WBC (Auto) Crossmatch 11/23/18 11/23/18 11/23/18 11:56 17:39 23:40 WBC RBC Hgb Hct MCH MCHC RDW Plt Count Lymph % (Auto) Emmet % (Auto) Eos % (Auto) Lymph # Emmet # Eos # Seg Neutrophils % Seg Neutrophils # PT INR POC ABG pH POC ABG pCO2 POC ABG pO2 VBG pH Sodium Potassium Chloride Carbon Dioxide BUN Creatinine Glucose POC Glucose 121 H 113 H 117 H Magnesium AST ALT Alkaline Phosphatase Total Creatine Kinase NT-Pro-B Natriuret Pep Albumin Urine WBC (Auto) Crossmatch 11/24/18 11/24/18 11/24/18 05:13 12:00 18:13 WBC RBC Hgb Hct MCH MCHC RDW Plt Count Lymph % (Auto) Emmet % (Auto) Eos % (Auto) Lymph # Emmet # Eos # Seg Neutrophils % Seg Neutrophils # PT INR POC ABG pH POC ABG pCO2 POC ABG pO2 VBG pH Sodium Potassium Chloride Carbon Dioxide BUN Creatinine Glucose POC Glucose 143 H 123 H 124 H Magnesium AST ALT Alkaline Phosphatase Total Creatine Kinase NT-Pro-B Natriuret Pep Albumin Urine WBC (Auto) Crossmatch 11/24/18 11/25/18 11/25/18 23:34 05:25 05:25 WBC RBC 2.48 L Hgb 6.8 L Hct 21.2 L MCH MCHC RDW 17.7 H Plt Count Lymph % (Auto) Emmet % (Auto) Eos % (Auto) Lymph # Emmet # Eos # Seg Neutrophils % Seg Neutrophils # PT INR POC ABG pH POC ABG pCO2 POC ABG pO2 VBG pH Sodium Potassium Chloride 108.8 H Carbon Dioxide BUN 30 H Creatinine 0.7 L Glucose 112 H POC Glucose 115 H Magnesium AST ALT Alkaline Phosphatase Total Creatine Kinase NT-Pro-B Natriuret Pep Albumin Urine WBC (Auto) Crossmatch 11/25/18 11/25/18 11/25/18 06:46 11:15 11:28 WBC RBC Hgb 7.4 L Hct 23.0 L MCH MCHC RDW Plt Count Lymph % (Auto) Emmet % (Auto) Eos % (Auto) Lymph # Emmet # Eos # Seg Neutrophils % Seg Neutrophils # PT INR POC ABG pH POC ABG pCO2 POC ABG pO2 VBG pH Sodium Potassium Chloride Carbon Dioxide BUN Creatinine Glucose POC Glucose 133 H 127 H Magnesium AST ALT Alkaline Phosphatase Total Creatine Kinase NT-Pro-B Natriuret Pep Albumin Urine WBC (Auto) Crossmatch 11/25/18 11/25/18 11/25/18 15:28 17:32 23:45 WBC RBC Hgb Hct MCH MCHC RDW Plt Count Lymph % (Auto) Emmet % (Auto) Eos % (Auto) Lymph # Emmet # Eos # Seg Neutrophils % Seg Neutrophils # PT INR POC ABG pH POC ABG pCO2 POC ABG pO2 VBG pH Sodium Potassium Chloride Carbon Dioxide BUN Creatinine Glucose POC Glucose 115 H 130 H Magnesium AST ALT Alkaline Phosphatase Total Creatine Kinase NT-Pro-B Natriuret Pep Albumin Urine WBC (Auto) Crossmatch See Detail 11/26/18 11/26/18 11/26/18 06:13 06:20 06:20 WBC RBC 2.76 L Hgb 7.7 L Hct 23.4 L MCH MCHC RDW 17.5 H Plt Count Lymph % (Auto) Emmet % (Auto) Eos % (Auto) Lymph # Emmet # Eos # Seg Neutrophils % Seg Neutrophils # PT INR POC ABG pH POC ABG pCO2 POC ABG pO2 VBG pH Sodium Potassium Chloride 109.9 H Carbon Dioxide BUN 30 H Creatinine 0.6 L Glucose 121 H POC Glucose 129 H Magnesium AST ALT Alkaline Phosphatase Total Creatine Kinase NT-Pro-B Natriuret Pep Albumin Urine WBC (Auto) Crossmatch 11/26/18 11/26/18 11/27/18 12:06 16:35 06:04 WBC RBC Hgb Hct MCH MCHC RDW Plt Count Lymph % (Auto) Emmet % (Auto) Eos % (Auto) Lymph # Emmet # Eos # Seg Neutrophils % Seg Neutrophils # PT INR POC ABG pH POC ABG pCO2 POC ABG pO2 VBG pH Sodium Potassium Chloride Carbon Dioxide BUN Creatinine Glucose POC Glucose 139 H 107 H 126 H Magnesium AST ALT Alkaline Phosphatase Total Creatine Kinase NT-Pro-B Natriuret Pep Albumin Urine WBC (Auto) Crossmatch 11/27/18 11/27/18 11/28/18 13:14 17:47 07:03 WBC RBC Hgb Hct MCH MCHC RDW Plt Count Lymph % (Auto) Emmet % (Auto) Eos % (Auto) Lymph # Emmet # Eos # Seg Neutrophils % Seg Neutrophils # PT INR POC ABG pH POC ABG pCO2 POC ABG pO2 VBG pH Sodium Potassium Chloride Carbon Dioxide BUN Creatinine Glucose POC Glucose 130 H 115 H 118 H Magnesium AST ALT Alkaline Phosphatase Total Creatine Kinase NT-Pro-B Natriuret Pep Albumin Urine WBC (Auto) Crossmatch 11/28/18 11/29/18 11/29/18 11:38 00:35 04:56 WBC RBC Hgb Hct MCH MCHC RDW Plt Count Lymph % (Auto) Emmet % (Auto) Eos % (Auto) Lymph # Emmet # Eos # Seg Neutrophils % Seg Neutrophils # PT INR POC ABG pH POC ABG pCO2 POC ABG pO2 VBG pH Sodium Potassium Chloride Carbon Dioxide BUN Creatinine Glucose POC Glucose 126 H 107 H Magnesium AST ALT Alkaline Phosphatase Total Creatine Kinase 50 L NT-Pro-B Natriuret Pep Albumin Urine WBC (Auto) Crossmatch 11/29/18 11/29/18 11/29/18 05:49 11:46 18:17 WBC RBC Hgb Hct MCH MCHC RDW Plt Count Lymph % (Auto) Emmet % (Auto) Eos % (Auto) Lymph # Emmet # Eos # Seg Neutrophils % Seg Neutrophils # PT INR POC ABG pH POC ABG pCO2 POC ABG pO2 VBG pH Sodium Potassium Chloride Carbon Dioxide BUN Creatinine Glucose POC Glucose 128 H 140 H 115 H Magnesium AST ALT Alkaline Phosphatase Total Creatine Kinase NT-Pro-B Natriuret Pep Albumin Urine WBC (Auto) Crossmatch 11/30/18 11/30/18 11/30/18 00:00 03:30 03:30 WBC RBC 2.97 L Hgb 8.1 L Hct 25.5 L MCH 27 L MCHC RDW 17.7 H Plt Count Lymph % (Auto) 9.2 L Emmet % (Auto) 10.0 H Eos % (Auto) 4.6 H Lymph # 1.0 L Emmet # 1.1 H Eos # 0.5 H Seg Neutrophils % 75.6 H Seg Neutrophils # 8.4 H PT INR POC ABG pH POC ABG pCO2 POC ABG pO2 VBG pH Sodium Potassium Chloride Carbon Dioxide BUN 31 H Creatinine 0.7 L Glucose POC Glucose 120 H Magnesium AST ALT Alkaline Phosphatase Total Creatine Kinase NT-Pro-B Natriuret Pep Albumin Urine WBC (Auto) Crossmatch 11/30/18 11/30/18 11/30/18 06:54 11:45 16:59 WBC RBC Hgb Hct MCH MCHC RDW Plt Count Lymph % (Auto) Emmet % (Auto) Eos % (Auto) Lymph # Emmet # Eos # Seg Neutrophils % Seg Neutrophils # PT INR POC ABG pH POC ABG pCO2 POC ABG pO2 VBG pH Sodium Potassium Chloride Carbon Dioxide BUN Creatinine Glucose POC Glucose 120 H 123 H 111 H Magnesium AST ALT Alkaline Phosphatase Total Creatine Kinase NT-Pro-B Natriuret Pep Albumin Urine WBC (Auto) Crossmatch 12/01/18 12/01/18 12/01/18 00:20 05:58 11:33 WBC RBC Hgb Hct MCH MCHC RDW Plt Count Lymph % (Auto) Emmet % (Auto) Eos % (Auto) Lymph # Emmet # Eos # Seg Neutrophils % Seg Neutrophils # PT INR POC ABG pH POC ABG pCO2 POC ABG pO2 VBG pH Sodium Potassium Chloride Carbon Dioxide BUN Creatinine Glucose POC Glucose 113 H 127 H 138 H Magnesium AST ALT Alkaline Phosphatase Total Creatine Kinase NT-Pro-B Natriuret Pep Albumin Urine WBC (Auto) Crossmatch 12/02/18 12/03/18 12/03/18 00:33 05:07 05:07 WBC RBC 2.93 L Hgb 8.2 L Hct 24.9 L MCH MCHC RDW 17.0 H Plt Count 470 H Lymph % (Auto) 9.3 L Emmet % (Auto) 8.6 H Eos % (Auto) 5.4 H Lymph # 0.9 L Emmet # Eos # 0.5 H Seg Neutrophils % 75.8 H Seg Neutrophils # PT INR POC ABG pH POC ABG pCO2 POC ABG pO2 VBG pH Sodium Potassium Chloride Carbon Dioxide BUN 30 H Creatinine 0.6 L Glucose 115 H POC Glucose 110 H Magnesium AST ALT Alkaline Phosphatase Total Creatine Kinase NT-Pro-B Natriuret Pep Albumin Urine WBC (Auto) Crossmatch 12/03/18 12/03/18 12/03/18 05:58 11:49 17:44 WBC RBC Hgb Hct MCH MCHC RDW Plt Count Lymph % (Auto) Emmet % (Auto) Eos % (Auto) Lymph # Emmet # Eos # Seg Neutrophils % Seg Neutrophils # PT INR POC ABG pH POC ABG pCO2 POC ABG pO2 VBG pH Sodium Potassium Chloride Carbon Dioxide BUN Creatinine Glucose POC Glucose 127 H 138 H 127 H Magnesium AST ALT Alkaline Phosphatase Total Creatine Kinase NT-Pro-B Natriuret Pep Albumin Urine WBC (Auto) Crossmatch 12/05/18 12/05/18 12/05/18 00:22 05:53 17:18 WBC RBC Hgb Hct MCH MCHC RDW Plt Count Lymph % (Auto) Emmet % (Auto) Eos % (Auto) Lymph # Emmet # Eos # Seg Neutrophils % Seg Neutrophils # PT INR POC ABG pH POC ABG pCO2 POC ABG pO2 VBG pH Sodium Potassium Chloride Carbon Dioxide BUN Creatinine Glucose POC Glucose 124 H 121 H 112 H Magnesium AST ALT Alkaline Phosphatase Total Creatine Kinase NT-Pro-B Natriuret Pep Albumin Urine WBC (Auto) Crossmatch 12/06/18 12/06/18 12/06/18 00:07 06:16 11:43 WBC RBC Hgb Hct MCH MCHC RDW Plt Count Lymph % (Auto) Emmet % (Auto) Eos % (Auto) Lymph # Emmet # Eos # Seg Neutrophils % Seg Neutrophils # PT INR POC ABG pH POC ABG pCO2 POC ABG pO2 VBG pH Sodium Potassium Chloride Carbon Dioxide BUN Creatinine Glucose POC Glucose 111 H 117 H 121 H Magnesium AST ALT Alkaline Phosphatase Total Creatine Kinase NT-Pro-B Natriuret Pep Albumin Urine WBC (Auto) Crossmatch 12/06/18 12/07/18 12/07/18 20:57 06:41 12:09 WBC RBC Hgb Hct MCH MCHC RDW Plt Count Lymph % (Auto) Emmet % (Auto) Eos % (Auto) Lymph # Emmet # Eos # Seg Neutrophils % Seg Neutrophils # PT INR POC ABG pH POC ABG pCO2 POC ABG pO2 VBG pH Sodium Potassium Chloride 107.2 H Carbon Dioxide BUN 27 H Creatinine 0.7 L Glucose POC Glucose 128 H 137 H Magnesium 2.50 H AST ALT Alkaline Phosphatase Total Creatine Kinase NT-Pro-B Natriuret Pep Albumin Urine WBC (Auto) Crossmatch 12/07/18 12/08/18 12/08/18 19:29 05:44 12:27 WBC RBC Hgb Hct MCH MCHC RDW Plt Count Lymph % (Auto) Emmet % (Auto) Eos % (Auto) Lymph # Emmet # Eos # Seg Neutrophils % Seg Neutrophils # PT INR POC ABG pH POC ABG pCO2 POC ABG pO2 VBG pH Sodium Potassium Chloride Carbon Dioxide BUN Creatinine Glucose POC Glucose 110 H 126 H 130 H Magnesium AST ALT Alkaline Phosphatase Total Creatine Kinase NT-Pro-B Natriuret Pep Albumin Urine WBC (Auto) Crossmatch 12/08/18 12/09/18 12/09/18 17:44 00:20 06:42 WBC RBC Hgb Hct MCH MCHC RDW Plt Count Lymph % (Auto) Emmet % (Auto) Eos % (Auto) Lymph # Emmet # Eos # Seg Neutrophils % Seg Neutrophils # PT INR POC ABG pH POC ABG pCO2 POC ABG pO2 VBG pH Sodium Potassium Chloride Carbon Dioxide BUN Creatinine Glucose POC Glucose 113 H 121 H 124 H Magnesium AST ALT Alkaline Phosphatase Total Creatine Kinase NT-Pro-B Natriuret Pep Albumin Urine WBC (Auto) Crossmatch 12/09/18 12/09/18 12/09/18 12:24 18:41 23:48 WBC RBC Hgb Hct MCH MCHC RDW Plt Count Lymph % (Auto) Emmet % (Auto) Eos % (Auto) Lymph # Emmet # Eos # Seg Neutrophils % Seg Neutrophils # PT INR POC ABG pH POC ABG pCO2 POC ABG pO2 VBG pH Sodium Potassium Chloride Carbon Dioxide BUN Creatinine Glucose POC Glucose 114 H 109 H 128 H Magnesium AST ALT Alkaline Phosphatase Total Creatine Kinase NT-Pro-B Natriuret Pep Albumin Urine WBC (Auto) Crossmatch 12/10/18 12/10/18 12/11/18 07:07 11:28 00:24 WBC RBC Hgb Hct MCH MCHC RDW Plt Count Lymph % (Auto) Emmet % (Auto) Eos % (Auto) Lymph # Emmet # Eos # Seg Neutrophils % Seg Neutrophils # PT INR POC ABG pH POC ABG pCO2 POC ABG pO2 VBG pH Sodium Potassium Chloride Carbon Dioxide BUN Creatinine Glucose POC Glucose 111 H 110 H 112 H Magnesium AST ALT Alkaline Phosphatase Total Creatine Kinase NT-Pro-B Natriuret Pep Albumin Urine WBC (Auto) Crossmatch 12/11/18 12/11/18 12/11/18 06:44 11:53 18:17 WBC RBC Hgb Hct MCH MCHC RDW Plt Count Lymph % (Auto) Emmet % (Auto) Eos % (Auto) Lymph # Emmet # Eos # Seg Neutrophils % Seg Neutrophils # PT INR POC ABG pH POC ABG pCO2 POC ABG pO2 VBG pH Sodium Potassium Chloride Carbon Dioxide BUN Creatinine Glucose POC Glucose 111 H 132 H 133 H Magnesium AST ALT Alkaline Phosphatase Total Creatine Kinase NT-Pro-B Natriuret Pep Albumin Urine WBC (Auto) Crossmatch 07/24/19 07/25/19 07/25/19 23:58 00:05 06:11 WBC RBC 2.85 L Hgb 7.8 L Hct 24.4 L MCH 27 L MCHC RDW 17.4 H Plt Count 459 H Lymph % (Auto) Emmet % (Auto) 11.2 H Eos % (Auto) 5.4 H Lymph # Emmet # 1.1 H Eos # 0.5 H Seg Neutrophils % Seg Neutrophils # PT INR POC ABG pH POC ABG pCO2 POC ABG pO2 VBG pH Sodium Potassium Chloride Carbon Dioxide BUN Creatinine Glucose POC Glucose 126 H 144 H Magnesium AST ALT Alkaline Phosphatase Total Creatine Kinase NT-Pro-B Natriuret Pep Albumin Urine WBC (Auto) Crossmatch 12/12/18 12/12/18 12/13/18 11:42 18:36 00:12 WBC RBC Hgb Hct MCH MCHC RDW Plt Count Lymph % (Auto) Emmet % (Auto) Eos % (Auto) Lymph # Emmet # Eos # Seg Neutrophils % Seg Neutrophils # PT INR POC ABG pH POC ABG pCO2 POC ABG pO2 VBG pH Sodium Potassium Chloride Carbon Dioxide BUN Creatinine Glucose POC Glucose 106 H 117 H 115 H Magnesium AST ALT Alkaline Phosphatase Total Creatine Kinase NT-Pro-B Natriuret Pep Albumin Urine WBC (Auto) Crossmatch 12/13/18 12/13/18 12/13/18 05:58 11:52 23:57 WBC RBC Hgb Hct MCH MCHC RDW Plt Count Lymph % (Auto) Emmet % (Auto) Eos % (Auto) Lymph # Emmet # Eos # Seg Neutrophils % Seg Neutrophils # PT INR POC ABG pH POC ABG pCO2 POC ABG pO2 VBG pH Sodium Potassium Chloride Carbon Dioxide BUN Creatinine Glucose POC Glucose 122 H 129 H 125 H Magnesium AST ALT Alkaline Phosphatase Total Creatine Kinase NT-Pro-B Natriuret Pep Albumin Urine WBC (Auto) Crossmatch 12/14/18 12/14/18 12/14/18 04:44 04:44 05:44 WBC RBC 2.56 L Hgb 7.2 L Hct 22.1 L MCH MCHC RDW 17.8 H Plt Count 473 H Lymph % (Auto) Emmet % (Auto) 11.5 H Eos % (Auto) 4.8 H Lymph # Emmet # 1.1 H Eos # Seg Neutrophils % Seg Neutrophils # PT INR POC ABG pH POC ABG pCO2 POC ABG pO2 VBG pH Sodium 151 H Potassium Chloride 116.7 H Carbon Dioxide BUN 40 H Creatinine Glucose 114 H POC Glucose 117 H Magnesium AST 80 H ALT 67 H Alkaline Phosphatase 247 H Total Creatine Kinase NT-Pro-B Natriuret Pep Albumin 1.9 L Urine WBC (Auto) Crossmatch 12/14/18 12/15/18 12/15/18 11:29 00:01 05:13 WBC RBC 2.68 L Hgb 7.4 L Hct 23.1 L MCH MCHC RDW 17.6 H Plt Count 454 H Lymph % (Auto) 13.3 L Emmet % (Auto) 9.7 H Eos % (Auto) 6.9 H Lymph # Emmet # Eos # 0.6 H Seg Neutrophils % Seg Neutrophils # PT INR POC ABG pH POC ABG pCO2 POC ABG pO2 VBG pH Sodium Potassium Chloride Carbon Dioxide BUN Creatinine Glucose POC Glucose 115 H 113 H Magnesium AST ALT Alkaline Phosphatase Total Creatine Kinase NT-Pro-B Natriuret Pep Albumin Urine WBC (Auto) Crossmatch 12/15/18 12/15/18 12/15/18 05:13 06:31 11:31 WBC RBC Hgb Hct MCH MCHC RDW Plt Count Lymph % (Auto) Emmet % (Auto) Eos % (Auto) Lymph # Emmet # Eos # Seg Neutrophils % Seg Neutrophils # PT INR POC ABG pH POC ABG pCO2 POC ABG pO2 VBG pH Sodium 151 H Potassium Chloride 116.4 H Carbon Dioxide BUN 39 H Creatinine Glucose 110 H POC Glucose 130 H 127 H Magnesium AST 85 H ALT 78 H Alkaline Phosphatase 255 H Total Creatine Kinase NT-Pro-B Natriuret Pep Albumin 1.9 L Urine WBC (Auto) Crossmatch 12/15/18 12/16/18 12/16/18 17:54 00:27 00:33 WBC RBC Hgb Hct MCH MCHC RDW Plt Count Lymph % (Auto) Emmet % (Auto) Eos % (Auto) Lymph # Emmet # Eos # Seg Neutrophils % Seg Neutrophils # PT INR POC ABG pH POC ABG pCO2 POC ABG pO2 VBG pH Sodium Potassium Chloride Carbon Dioxide BUN Creatinine Glucose POC Glucose 122 H 131 H Magnesium AST ALT Alkaline Phosphatase Total Creatine Kinase 50 L NT-Pro-B Natriuret Pep Albumin Urine WBC (Auto) Crossmatch 12/16/18 12/16/18 12/16/18 05:31 11:31 17:22 WBC RBC Hgb Hct MCH MCHC RDW Plt Count Lymph % (Auto) Emmet % (Auto) Eos % (Auto) Lymph # Emmet # Eos # Seg Neutrophils % Seg Neutrophils # PT INR POC ABG pH POC ABG pCO2 POC ABG pO2 VBG pH Sodium Potassium Chloride Carbon Dioxide BUN Creatinine Glucose POC Glucose 138 H 121 H 114 H Magnesium AST ALT Alkaline Phosphatase Total Creatine Kinase NT-Pro-B Natriuret Pep Albumin Urine WBC (Auto) Crossmatch 12/16/18 12/17/18 12/17/18 23:56 05:01 05:01 WBC 11.1 H RBC 2.96 L Hgb 7.9 L Hct 25.7 L MCH 27 L MCHC 31 L RDW 17.9 H Plt Count 479 H Lymph % (Auto) 11.3 L Emmet % (Auto) 7.5 H Eos % (Auto) 4.5 H Lymph # Emmet # Eos # 0.5 H Seg Neutrophils % 75.9 H Seg Neutrophils # 8.4 H PT INR POC ABG pH POC ABG pCO2 POC ABG pO2 VBG pH Sodium 155 H Potassium Chloride 121.2 H Carbon Dioxide BUN 41 H Creatinine Glucose 122 H POC Glucose 137 H Magnesium AST 97 H ALT 99 H Alkaline Phosphatase 279 H Total Creatine Kinase NT-Pro-B Natriuret Pep Albumin 1.8 L Urine WBC (Auto) Crossmatch 12/17/18 12/17/18 12/18/18 11:52 18:17 00:17 WBC RBC Hgb Hct MCH MCHC RDW Plt Count Lymph % (Auto) Emmet % (Auto) Eos % (Auto) Lymph # Emmet # Eos # Seg Neutrophils % Seg Neutrophils # PT INR POC ABG pH POC ABG pCO2 POC ABG pO2 VBG pH Sodium Potassium Chloride Carbon Dioxide BUN Creatinine Glucose POC Glucose 142 H 140 H 160 H Magnesium AST ALT Alkaline Phosphatase Total Creatine Kinase NT-Pro-B Natriuret Pep Albumin Urine WBC (Auto) Crossmatch 12/18/18 12/18/18 12/18/18 05:39 05:40 05:40 WBC 11.7 H RBC 2.76 L Hgb 7.5 L Hct 23.8 L MCH 27 L MCHC 31 L RDW 17.8 H Plt Count Lymph % (Auto) Emmet % (Auto) Eos % (Auto) Lymph # Emmet # Eos # Seg Neutrophils % Seg Neutrophils # PT INR POC ABG pH POC ABG pCO2 POC ABG pO2 VBG pH Sodium 153 H Potassium Chloride 117.6 H Carbon Dioxide BUN 48 H Creatinine Glucose 122 H POC Glucose 138 H Magnesium AST ALT Alkaline Phosphatase Total Creatine Kinase NT-Pro-B Natriuret Pep Albumin Urine WBC (Auto) Crossmatch 12/18/18 12/18/18 11:32 17:26 WBC RBC Hgb Hct MCH MCHC RDW Plt Count Lymph % (Auto) Emmet % (Auto) Eos % (Auto) Lymph # Emmet # Eos # Seg Neutrophils % Seg Neutrophils # PT INR POC ABG pH POC ABG pCO2 POC ABG pO2 VBG pH Sodium Potassium Chloride Carbon Dioxide BUN Creatinine Glucose POC Glucose 136 H 125 H Magnesium AST ALT Alkaline Phosphatase Total Creatine Kinase NT-Pro-B Natriuret Pep Albumin Urine WBC (Auto) Crossmatch Allied health notes reviewed: nursing
[2018-12-19] MEDS: D5W 1,000 ML IV SCH ×2 (00:51→14:22)
[2018-12-19] MEDS: SODIUM CHLORIDE FLUSH SYRINGE 10 ML IV SCH ×3 (00:53→22:08)
[2018-12-19 05:58] LABS: BUN/Creatinine Ratio 50; Blood Urea Nitrogen 45 mg/dL (9-20); Calcium 8.3 mg/dL (8.4-10.2); Hemolysis Index 107
[2018-12-19 06:02] LABS: Hematocrit 24.4 % (35.5-45.6); Hemoglobin 7.6 gm/dl (11.8-15.2); Mean Corpuscular HGB Conc 31 % (32-34); Mean Corpuscular Volume 86 fl (84-94); Platelet Count 424 K/mm3 (140-440); Red Blood Count 2.86 M/mm3 (3.65-5.03); Red Cell Distribution Width 17.8 % (13.2-15.2)
[2018-12-19] MEDS ORDERED: CALCIUM GLUCONATE 1,000 MG in NACL 0.9% 100 ML IV ONE (09:00)
--- NOTE | 2018-12-19 09:16 | Progress Note ---
Assessment and Plan Assessment and plan: 7 YO [facility] Resident as [facility] with HTN, CVA, Obstructive Uropathy, Diastolic CHF, Contracture, Sacral Decubitus Ulcers, IL, DM, OA, Seizure Disorder, COPD, Dementia, BPH presents to ED for evaluation. Pt is stuporous and unable to provide history. Pt history taken from ED Staff, EMS, and SNF Staff. As per staff, the patient was found to have respiratory distress upon evaluation this morning. Pt found to have pulse oximetry in the 80's. EMS notified and patient subsequently transported to [facility] for further care and evaluation. Pt seen and evaluated in ED and found to have UTI, Sepsis, Encephalopathy as well as Acute Hypoxemic Respiratory Failure. Extensive discussion with family about patients poor prognosis surgery consulted, did debridment ID following, Pulmonary status improved Continue isolation care Chaudhary placed by Urology. 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 He needs to be on contact isolation. This cannot be cured with antibiotics. recommend palliative care/comfort care or hospice, family are not interested in that option. Completed daptomycin for 6 weeks completed 12/16/2018 Sacral pressure ulcer -infected. POA Debridement done by Dr Man Amputation recommended and the daughter refused Respiratory failure Supplemental oxygen, nebulizer therapy, mgt per pulmonology ANEMIA of chronic disease Transfused one unit PRBC hemoglobin is stable Transfuse as necessary Seizure Continue current therapy, seizure precautions. BPH Continue Chaudhary catherter Dementia supportive care Hyperkalemia. Repeat Calcium gluconate 1 g iv DVT prophylaxis Prophylactic lovenox POOR PROGNOSIS Disposition; pending SNF placement. . History Interval history: No new complaints Hospitalist Physical - Physical exam Narrative exam: Gen: Not in acute distress. lying in bed Head exam is unremarkable. No scleral icterus . Neck is without jugular venous distension, thyromegaly, or carotid bruits. Lungs are clear to auscultation. Cardiac exam reveals regular rate and Rhythm. First and second heart sounds normal. No murmurs, rubs or gallops. Abdominal exam reveals non tender, not distended,normal bowel sounds, no masses, Extremities contracted extremities. REPRODUCTION ARTIST: Awake,alert, contracted extremities Skin; multiple decubitus ulcers, including the sacrum , lower extremities bilateral. - Constitutional Vitals: Temp Pulse Resp BP Pulse Ox 98.7 F 85 20 130/68 98 12/19/18 07:20 12/19/18 07:20 12/19/18 07:20 12/19/18 07:20 12/19/18 07:20 General appearance: Present: no acute distress Results - Labs CBC & Chem 7: 12/19/18 05:22 12/19/18 08:23 Labs: Laboratory Last Values WBC 12.2 K/mm3 (4.5-11.0) H 12/19/18 05:22 RBC 2.86 M/mm3 (3.65-5.03) L 12/19/18 05:22 Hgb 7.6 gm/dl (11.8-15.2) L 12/19/18 05:22 Hct 24.4 % (35.5-45.6) L 12/19/18 05:22 MCV 86 fl (84-94) 12/19/18 05:22 MCH 27 pg (28-32) L 12/19/18 05:22 MCHC 31 % (32-34) L 12/19/18 05:22 RDW 17.8 % (13.2-15.2) H 12/19/18 05:22 Plt Count 424 K/mm3 (140-440) 12/19/18 05:22 Lymph % (Auto) 11.3 % (13.4-35.0) L 12/17/18 05:01 Piatt % (Auto) 7.5 % (0.0-7.3) H 12/17/18 05:01 Eos % (Auto) 4.5 % (0.0-4.3) H 12/17/18 05:01 Baso % (Auto) 0.8 % (0.0-1.8) 12/17/18 05:01 Lymph # 1.3 K/mm3 (1.2-5.4) 12/17/18 05:01 Piatt # 0.8 K/mm3 (0.0-0.8) 12/17/18 05:01 Eos # 0.5 K/mm3 (0.0-0.4) H 12/17/18 05:01 Baso # 0.1 K/mm3 (0.0-0.1) 12/17/18 05:01 Seg Neutrophils % 75.9 % (40.0-70.0) H 12/17/18 05:01 Seg Neutrophils # 8.4 K/mm3 (1.8-7.7) H 12/17/18 05:01 PT 16.3 Sec. (12.2-14.9) H 11/01/18 14:50 INR 1.35 (0.87-1.13) H 11/01/18 14:50 POC ABG pH 7.494 (7.35-7.45) H 11/01/18 15:27 POC ABG pCO2 34.5 (35-45) L 11/01/18 15:27 POC ABG pO2 139 (80-105) H 11/01/18 15:27 POC ABG HCO3 26.5 (22-26 mml/L) 11/01/18 15:27 POC ABG Total CO2 28 (23-27mmol/L) 11/01/18 15:27 POC ABG O2 Sat 99 11/01/18 15:27 POC ABG Base Excess 3 ((-2) - (+3)mmol/L) 11/01/18 15:27 VBG pH 7.499 (7.320-7.420) H 11/01/18 14:50 50 % 11/01/18 15:27 Sodium 144 mmol/L (137-145) D 12/19/18 05:22 Potassium 5.9 mmol/L (3.6-5.0) H D 12/19/18 05:22 Chloride 109.7 mmol/L (98-107) H 12/19/18 05:22 Carbon Dioxide 23 mmol/L (22-30) 12/19/18 05:22 17 mmol/L 12/19/18 05:22 BUN 45 mg/dL (9-20) H 12/19/18 05:22 0.9 mg/dL (0.8-1.5) 12/19/18 05:22 Estimated GFR > 60 ml/min 12/19/18 05:22 50 % 12/19/18 05:22 Glucose 107 mg/dL (75-100) H 12/19/18 05:22 POC Glucose 136 (70-105) H 12/19/18 06:19 Lactic Acid 1.80 mmol/L (0.7-2.0) 11/01/18 14:50 Calcium 8.3 mg/dL (8.4-10.2) L 12/19/18 05:22 Phosphorus 2.90 mg/dL (2.5-4.5) 11/22/18 09:43 Magnesium 2.50 mg/dL (1.7-2.3) H 12/06/18 20:57 0.20 mg/dL (0.1-1.2) 12/17/18 05:01 AST 97 units/L (5-40) H 12/17/18 05:01 ALT 99 units/L (7-56) H 12/17/18 05:01 279 units/L (35-129) H 12/17/18 05:01 50 units/L (55-170) L 12/16/18 00:27 NT-Pro-B Natriuret Pep 6776 pg/mL (0-900) H 11/01/18 14:50 7.7 g/dL (6.3-8.2) 12/17/18 05:01 1.8 g/dL (3.9-5) L 12/17/18 05:01 0.3 % 12/17/18 05:01 14 units/L (13-60) 11/25/18 15:07 Yellow (Yellow) 11/01/18 15:57 Turbid (Clear) 11/01/18 15:57 6.0 (5.0-7.0) 11/01/18 15:57 Ur Specific [place] 1.016 (1.003-1.030) 11/01/18 15:57 100 mg/dl mg/dL (Negative) 11/01/18 15:57 Neg mg/dL (Negative) 11/01/18 15:57 Neg mg/dL (Negative) 11/01/18 15:57 Neg (Negative) 11/01/18 15:57 Neg (Negative) 11/01/18 15:57 Neg (Negative) 11/01/18 15:57 < 2.0 mg/dL (<2.0) 11/01/18 15:57 Ur Leukocyte Esterase Mod (Negative) 11/01/18 15:57 > 182.0 /HPF (0.0-6.0) H 11/01/18 15:57 40.0 /HPF (0.0-6.0) 11/01/18 15:57 U Epithel Cells (Auto) 8.0 /HPF (0-13.0) 11/01/18 15:57 3+ /HPF 11/01/18 15:57 3+ /HPF 11/01/18 15:57 Random Vancomycin 13.9 ug/mL (0-40.0) 11/02/18 05:05 Blood Type O POSITIVE 11/25/18 15:28 Antibody Screen Negative 11/25/18 15:28 Crossmatch See Detail 11/25/18 15:28 Active Medications - Current Medications Current Medications: Generic Name Dose Route Start Last Admin Trade Name Freq PRN Reason Stop Dose Admin Acetaminophen 650 mg 12/11/18 15:21 12/17/18 23:07 Tylenol FEEDTUBE 650 mg Q6H PRN Administration Pain, Mild (1-3) Albuterol 2.5 mg 11/01/18 17:15 Proventil IH Q3HRT PRN Shortness Of Breath Lipase/Protease/Amylase 1 each 12/16/18 13:[address] 10,500 Unit FEEDTUBE PRN PRN For Clogged Feeding Tube Ascorbic Acid 500 mg 11/01/18 22:00 12/18/18 23:56 Vitamin C FEEDTUBE 500 mg BID NORA Administration Atorvastatin Calcium 40 mg 11/01/18 22:00 12/19/18 07:08 Lipitor FEEDTUBE Not Given QHS NORA Carvedilol 6.25 mg 11/08/18 13:00 12/18/18 23:55 Coreg PO 6.25 mg BID NORA Administration Clonidine HCl 0.2 mg 11/05/18 17:18 12/17/18 17:31 Catapres-Tts Patch TD 0.2 mg Tu NORA Administration Enoxaparin Sodium 40 mg 11/02/18 10:00 12/18/18 10:08 Lovenox SUB-Q 40 mg QDAY@1000 NORA Administration Hydralazine HCl 10 mg 11/25/18 22:00 12/18/18 23:56 Apresoline PO 10 mg Q12HR NORA Administration Dextrose 1,000 mls @ 75 mls/hr 12/16/18 09:30 12/19/18 00:51 D5w IV 75 mls/hr DIRECT NORA Administration Levetiracetam 500 mg 11/01/18 22:00 12/18/18 23:56 Keppra FEEDTUBE 500 mg BID NORA Administration Mineral Oil 133 ml 12/10/18 14:55 Fleet Mineral Oil [place] QDAY PRN Constipation Morphine Sulfate 2 mg 11/01/18 17:15 12/10/18 23:15 Morphine IV 2 mg Q4H PRN Administration Pain, Moderate (4-6) Multivitamins 5 ml 11/02/18 10:00 12/18/18 10:09 Centrum Liq FEEDTUBE 5 ml QDAY NORA Administration Polyethylene Glycol 17 gm 12/10/18 15:00 12/18/18 10:10 Miralax 3350 FEEDTUBE 17 gm QDAY NORA Administration Senna 8.6 mg 12/10/18 14:56 Senokot FEEDTUBE Q12H PRN Laxative Effect Simple Syrup 15 ml 12/16/18 13:57 Simple Syrup FEEDTUBE PRN PRN Hypoglycemia Simple Syrup 30 ml 12/16/18 13:57 Simple Syrup FEEDTUBE PRN PRN Hypoglycemia Sodium Bicarbonate 325 mg 12/16/18 13:57 Sodium Bicarbonate FEEDTUBE PRN PRN For Clogged Feeding Tube Sodium Biphosphate/Sodium Phosphate 133 ml 12/10/18 14:55 Fleet [place] QDAY PRN Bowel Movement Sodium Chloride 10 ml 11/01/18 22:00 12/19/18 00:53 Sodium Chloride Flush Syringe 10 Ml IV 10 ml BID NORA Administration Sodium Chloride 10 ml 11/01/18 17:15 11/23/18 04:05 Sodium Chloride Flush Syringe 10 Ml IV 10 ml PRN PRN Administration LINE FLUSH Zinc Sulfate 220 mg 11/02/18 10:00 12/18/18 10:08 Zinc Sulfate PO 220 mg DAILY NORA Administration Nutrition/Malnutrition Assess - Dietary Evaluation Nutrition/Malnutrition Findings: Nutrition Notes Start: 11/04/18 16:00 Freq: Status: Active Protocol: Document 12/18/18 17:40 RM (Rec: 12/18/18 17:45 RM [id number]) Nutrition Notes Initial or Follow up Reassessment Current Diagnosis COPD,Diabetes,Sepsis, Hypertension,Heart Failure, Stroke Other Pertinent Diagnosis Infected sacral decubitus, Dementia, BPH, UTI Current Diet TF - Glucerna 1.2 at 70ml/hr + Mario BID Labs/Tests Na 153 Pertinent Medications Reviewed Height 5 ft 8 in Weight 62.1 kg [place] Body Weight (kg) 70.00 BMI 20.8 Subjective/Other Information Observed Glucerna infusing at goal rate. Nurse stated that she plans to give pt Mario and that pt is tolerating TF. Percent of energy/protein needs met: 95%/100% Burn Absent Trauma Absent #1 Nutrition Diagnosis Inadequate oral intake Diagnosis Progress(for reassessment Continues documentation) Is patient on ventilator? No Is Patient Ambulatory and/or Out of Bed No REE-([facility]-confined to bed) 1638.480 Kcal/Kg value to use for calculation 34 Approximate Energy Requirements Using 2111 kcal/Kg Calculation Used for Recommendations Kcal/kg Additional Notes Pro needs 1.5-2g/k-124g/ day Fluid needs 1ml/kcal Nutrition Intervention Nutrition Support: Glucerna 1.2 at 70ml/hr Water flush of 200 mls q 4 hrs until hypernatremia resolves. Water flush of 100 mls q 4 hrs once hypernatremia resolves. Kcal 2,016 Protein (gm) 101 Carbohydrates (gm) 192 Fat (gm) 101 Fluid (mL) 1,352 Add Supplement/Snack (indicate name/kcal Mario BID /protein ) Provides kCal: 190 Provides Protein (gm) 5 Goal #1 TF tolerance Goal #2 TF to continue to meet at least 75% of calorie and protein needs Follow-Up By: 12/21/18 Additional Comments Follow for TF tolerance, Mario administration - Attestation Statement I have reviewed and agreed w/ Malnutrition eval & tx plan: Yes
[2018-12-19] MEDS: LOVENOX SUB-Q SCH (09:21)
[2018-12-19] MEDS: KEPPRA FEEDTUBE SCH ×2 (09:22→22:09)
[2018-12-19] MEDS: APRESOLINE PO SCH ×2 (09:22→23:06)
[2018-12-19] MEDS: VITAMIN C FEEDTUBE SCH ×2 (09:24→22:09)
[2018-12-19] MEDS: Centrum Liq FEEDTUBE SCH (09:24)
[2018-12-19] MEDS: COREG PO SCH ×2 (09:24→23:07)
[2018-12-19] MEDS: ZINC SULFATE PO SCH (09:24)
[2018-12-19] MEDS: MIRALAX 3350 FEEDTUBE SCH (09:25)
[2018-12-19 09:42] LABS: BUN/Creatinine Ratio 47; Blood Urea Nitrogen 42 mg/dL (9-20); Calcium 8.8 mg/dL (8.4-10.2); Hemolysis Index 1
--- NOTE | 2018-12-19 10:14 | Progress Note ---
Assessment and Plan (1) Sepsis- severe Current Visit: Yes Status: Acute Plan to address problem: Antibiotics per ID (2) Respiratory failure Current Visit: Yes Status: Acute Qualifiers: Chronicity: acute Respiratory failure complication: hypoxia Qualified Code(s): J96.01 - Acute respiratory failure with hypoxia Plan to address problem: Supplemental oxygen wean fro O2 sats >90% Bronchodilators per protocol (3) Seizure Current Visit: Yes Status: Acute Plan to address problem: Continue current therapy, seizure precautions. (4) UTI (urinary tract infection) Current Visit: Yes Status: Acute Qualifiers: Encounter type: initial encounter Plan to address problem: IV antibiotic therapy (5) Dementia Current Visit: Yes Status: Acute Qualifiers: Dementia behavioral disturbance: without behavioral disturbance Plan to address problem: Per primary (6) sacral pressure ulcer -infected, POA Continue antibiotics and wound care (7)DVT prophylaxis Current Visit: Yes Plan to address problem: SCD to BLE while in bed, Hematuria s/p 3 way bright catheter. For surgical debridement today POOR PROGNOSIS Discharge planning Subjective Date of service: 12/19/18 Principal diagnosis: Severe Sepsis; Ac. Hypoxemic Resp failure; Anemia; Seizure; UTI; BPH Interval history: Patient is seen today for: Severe Sepsis; Acute Hypoxemic Respiratory failure; Anemia of chronic disease; Seizure; UTI (urinary tract infection); BPH; Dementia; sacral pressure ulcer -infected. POA Seen and examined at bedside; 24-hour events reviewed; nursing and respiratory care staff consulted; no adverse overnight events reported to me; resting peacefully in bed; No N/V/F/C; Vitals, labs, medications, chart reviewed. On 3L NC, comfortable, Right chest wall tunnelled PICC line, for debridement of multiple decubitus pressure ulcers ths afternoon Objective Vital Signs - 12hr 12/18/18 12/19/18 12/19/18 23:55 02:17 07:20 Temperature 97.7 F 98.7 F Pulse Rate 88 85 85 Respiratory 18 20 Rate Blood Pressure 133/66 114/56 130/68 O2 Sat by Pulse 96 98 Oximetry 12/19/18 09:22 Temperature Pulse Rate 90 Respiratory Rate Blood Pressure 112/56 O2 Sat by Pulse Oximetry Constitutional: no acute distress, asleep Eyes: non-icteric ENT: oropharynx moist Neck: no lymphadenopathy, no JVD, other ( stiffness / contractures) Effort: normal Ascultation: Bilateral: clear, diminished breath sounds, rhonchi Cardiovascular: regular rate and rhythm, other (S1,S2, no murmurs, no gallops) Gastrointestinal: normoactive bowel sounds, soft, non-tender, non-distended, other (PEG in place) Integumentary: rash Extremities: no cyanosis, no edema, other (Patient has pressure ulcer at multiple areas, including sacral area, contractures) Neurologic: pupils equal and round, other (+ contractures) Psychiatric: depressed, other (flat affect) CBC and BMP: 12/21/18 05:37 12/21/18 05:37 ABG, PT/INR, D-dimer: ABG POC ABG pH 7.494 (7.35-7.45) H 11/01/18 15:27 POC ABG pCO2 34.5 (35-45) L 11/01/18 15:27 POC ABG pO2 139 (80-105) H 11/01/18 15:27 POC ABG HCO3 26.5 (22-26 mml/L) 11/01/18 15:27 POC ABG Total CO2 28 (23-27mmol/L) 11/01/18 15:27 POC ABG O2 Sat 99 11/01/18 15:27 PT/INR, D-dimer PT 16.3 Sec. (12.2-14.9) H 11/01/18 14:50 INR 1.35 (0.87-1.13) H 11/01/18 14:50 Abnormal lab findings: Abnormal Labs 11/01/18 11/01/18 11/01/18 14:50 14:50 14:50 WBC 15.3 H RBC 2.76 L Hgb 7.9 L Hct 23.5 L MCH MCHC RDW 18.3 H Plt Count 567 H Lymph % (Auto) 6.5 L [place] % (Auto) 8.5 H Eos % (Auto) Lymph # 1.0 L [place] # 1.3 H Eos # Seg Neutrophils % 83.4 H Seg Neutrophils # 12.7 H PT 16.3 H INR 1.35 H POC ABG pH POC ABG pCO2 POC ABG pO2 VBG pH Sodium Potassium Chloride Carbon Dioxide BUN 49 H Creatinine Glucose 132 H POC Glucose Calcium Magnesium AST 90 H ALT 77 H Alkaline Phosphatase 350 H Total Creatine Kinase NT-Pro-B Natriuret Pep Albumin 1.6 L Urine WBC (Auto) Crossmatch 11/01/18 11/01/18 11/01/18 14:50 14:50 15:27 WBC RBC Hgb Hct MCH MCHC RDW Plt Count Lymph % (Auto) [place] % (Auto) Eos % (Auto) Lymph # [place] # Eos # Seg Neutrophils % Seg Neutrophils # PT INR POC ABG pH 7.494 H POC ABG pCO2 34.5 L POC ABG pO2 139 H VBG pH 7.499 H Sodium Potassium Chloride Carbon Dioxide BUN Creatinine Glucose POC Glucose Calcium Magnesium AST ALT Alkaline Phosphatase Total Creatine Kinase NT-Pro-B Natriuret Pep 6776 H Albumin Urine WBC (Auto) Crossmatch 11/01/18 11/03/18 11/03/18 15:57 03:41 03:41 WBC 12.8 H RBC 2.55 L Hgb 6.9 L Hct 22.2 L MCH 27 L MCHC 31 L RDW 17.9 H Plt Count 519 H Lymph % (Auto) [place] % (Auto) Eos % (Auto) Lymph # [place] # Eos # Seg Neutrophils % Seg Neutrophils # PT INR POC ABG pH POC ABG pCO2 POC ABG pO2 VBG pH Sodium 147 H Potassium Chloride 110.3 H Carbon Dioxide BUN 55 H Creatinine Glucose POC Glucose Calcium Magnesium AST ALT Alkaline Phosphatase Total Creatine Kinase NT-Pro-B Natriuret Pep Albumin Urine WBC (Auto) > 182.0 H Crossmatch 11/03/18 11/04/18 11/04/18 12:51 05:12 05:12 WBC 11.5 H RBC 2.94 L Hgb 8.3 L Hct 25.3 L MCH MCHC RDW 17.3 H Plt Count 514 H Lymph % (Auto) [place] % (Auto) Eos % (Auto) Lymph # [place] # Eos # Seg Neutrophils % Seg Neutrophils # PT INR POC ABG pH POC ABG pCO2 POC ABG pO2 VBG pH Sodium 147 H Potassium Chloride 112.4 H Carbon Dioxide BUN 52 H Creatinine Glucose POC Glucose Calcium Magnesium AST ALT Alkaline Phosphatase Total Creatine Kinase NT-Pro-B Natriuret Pep Albumin Urine WBC (Auto) Crossmatch See Detail 11/05/18 11/05/18 11/06/18 04:50 04:50 05:42 WBC RBC 3.03 L 2.80 L Hgb 8.7 L 7.9 L Hct 26.6 L 24.7 L MCH MCHC RDW 17.1 H 17.0 H Plt Count 502 H 478 H Lymph % (Auto) 10.4 L [place] % (Auto) 8.6 H Eos % (Auto) 4.7 H Lymph # 1.0 L [place] # Eos # 0.5 H Seg Neutrophils % 75.6 H Seg Neutrophils # PT INR POC ABG pH POC ABG pCO2 POC ABG pO2 VBG pH Sodium 149 H Potassium Chloride 114.4 H Carbon Dioxide 21 L BUN 50 H Creatinine Glucose 108 H POC Glucose Calcium Magnesium AST ALT Alkaline Phosphatase Total Creatine Kinase NT-Pro-B Natriuret Pep Albumin Urine WBC (Auto) Crossmatch 11/06/18 11/11/18 11/12/18 05:42 18:54 00:22 WBC RBC Hgb Hct MCH MCHC RDW Plt Count Lymph % (Auto) [place] % (Auto) Eos % (Auto) Lymph # [place] # Eos # Seg Neutrophils % Seg Neutrophils # PT INR POC ABG pH POC ABG pCO2 POC ABG pO2 VBG pH Sodium 149 H Potassium Chloride 113.4 H Carbon Dioxide BUN 50 H Creatinine Glucose 121 H POC Glucose 114 H 123 H Calcium Magnesium AST ALT Alkaline Phosphatase Total Creatine Kinase NT-Pro-B Natriuret Pep Albumin Urine WBC (Auto) Crossmatch 11/12/18 11/12/18 11/13/18 06:49 11:35 06:34 WBC RBC Hgb Hct MCH MCHC RDW Plt Count Lymph % (Auto) [place] % (Auto) Eos % (Auto) Lymph # [place] # Eos # Seg Neutrophils % Seg Neutrophils # PT INR POC ABG pH POC ABG pCO2 POC ABG pO2 VBG pH Sodium Potassium Chloride Carbon Dioxide BUN Creatinine Glucose POC Glucose 129 H 123 H 128 H Calcium Magnesium AST ALT Alkaline Phosphatase Total Creatine Kinase NT-Pro-B Natriuret Pep Albumin Urine WBC (Auto) Crossmatch 11/13/18 11/13/18 11/13/18 09:26 09:26 15:13 WBC RBC 3.08 L Hgb 8.6 L Hct 27.3 L MCH MCHC 31 L RDW 18.3 H Plt Count 504 H Lymph % (Auto) 11.7 L [place] % (Auto) 7.5 H Eos % (Auto) 7.0 H Lymph # [place] # Eos # 0.7 H Seg Neutrophils % 72.9 H Seg Neutrophils # PT INR POC ABG pH POC ABG pCO2 POC ABG pO2 VBG pH Sodium 153 H Potassium 6.3 H* 5.8 H Chloride 122.3 H Carbon Dioxide 21 L BUN 38 H Creatinine Glucose 112 H POC Glucose Calcium Magnesium AST ALT Alkaline Phosphatase Total Creatine Kinase NT-Pro-B Natriuret Pep Albumin Urine WBC (Auto) Crossmatch 11/13/18 11/13/18 11/14/18 22:10 23:45 13:17 WBC RBC Hgb Hct MCH MCHC RDW Plt Count Lymph % (Auto) [place] % (Auto) Eos % (Auto) Lymph # [place] # Eos # Seg Neutrophils % Seg Neutrophils # PT INR POC ABG pH POC ABG pCO2 POC ABG pO2 VBG pH Sodium 155 H Potassium 5.3 H Chloride 122.3 H Carbon Dioxide BUN 35 H Creatinine Glucose 113 H POC Glucose 111 H 142 H Calcium Magnesium AST ALT Alkaline Phosphatase Total Creatine Kinase NT-Pro-B Natriuret Pep Albumin Urine WBC (Auto) Crossmatch 11/14/18 11/15/18 11/15/18 19:08 00:31 06:45 WBC RBC Hgb Hct MCH MCHC RDW Plt Count Lymph % (Auto) [place] % (Auto) Eos % (Auto) Lymph # [place] # Eos # Seg Neutrophils % Seg Neutrophils # PT INR POC ABG pH POC ABG pCO2 POC ABG pO2 VBG pH Sodium Potassium Chloride Carbon Dioxide BUN Creatinine Glucose POC Glucose 116 H 125 H 131 H Calcium Magnesium AST ALT Alkaline Phosphatase Total Creatine Kinase NT-Pro-B Natriuret Pep Albumin Urine WBC (Auto) Crossmatch 11/15/18 11/15/18 11/15/18 07:13 07:13 19:03 WBC 13.2 H RBC 2.81 L Hgb 7.8 L Hct 24.5 L MCH MCHC RDW 18.2 H Plt Count 454 H Lymph % (Auto) 9.0 L [place] % (Auto) 7.5 H Eos % (Auto) Lymph # [place] # 1.0 H Eos # 0.5 H Seg Neutrophils % 78.8 H Seg Neutrophils # 10.4 H PT INR POC ABG pH POC ABG pCO2 POC ABG pO2 VBG pH Sodium 149 H Potassium 5.2 H Chloride 117.2 H Carbon Dioxide BUN 38 H Creatinine Glucose 114 H POC Glucose 141 H Calcium Magnesium AST ALT Alkaline Phosphatase Total Creatine Kinase NT-Pro-B Natriuret Pep Albumin Urine WBC (Auto) Crossmatch 11/16/18 11/16/18 11/16/18 01:15 01:15 06:45 WBC RBC Hgb Hct MCH MCHC RDW Plt Count Lymph % (Auto) [place] % (Auto) Eos % (Auto) Lymph # [place] # Eos # Seg Neutrophils % Seg Neutrophils # PT INR POC ABG pH POC ABG pCO2 POC ABG pO2 VBG pH Sodium Potassium 5.3 H Chloride Carbon Dioxide BUN Creatinine Glucose POC Glucose 129 H Calcium Magnesium 2.60 H AST ALT Alkaline Phosphatase Total Creatine Kinase NT-Pro-B Natriuret Pep Albumin Urine WBC (Auto) Crossmatch 11/16/18 11/16/18 11/17/18 13:20 18:02 00:16 WBC RBC Hgb Hct MCH MCHC RDW Plt Count Lymph % (Auto) [place] % (Auto) Eos % (Auto) Lymph # [place] # Eos # Seg Neutrophils % Seg Neutrophils # PT INR POC ABG pH POC ABG pCO2 POC ABG pO2 VBG pH Sodium Potassium Chloride Carbon Dioxide BUN Creatinine Glucose POC Glucose 130 H 127 H 120 H Calcium Magnesium AST ALT Alkaline Phosphatase Total Creatine Kinase NT-Pro-B Natriuret Pep Albumin Urine WBC (Auto) Crossmatch 11/17/18 11/17/18 11/17/18 05:48 08:02 08:02 WBC RBC Hgb 7.5 L Hct 23.5 L MCH MCHC RDW Plt Count Lymph % (Auto) [place] % (Auto) Eos % (Auto) Lymph # [place] # Eos # Seg Neutrophils % Seg Neutrophils # PT INR POC ABG pH POC ABG pCO2 POC ABG pO2 VBG pH Sodium Potassium Chloride 110.1 H Carbon Dioxide 21 L BUN 38 H Creatinine Glucose 121 H POC Glucose 130 H Calcium Magnesium AST ALT Alkaline Phosphatase Total Creatine Kinase NT-Pro-B Natriuret Pep Albumin Urine WBC (Auto) Crossmatch 11/17/18 11/17/18 11/18/18 12:17 16:48 06:00 WBC RBC Hgb Hct MCH MCHC RDW Plt Count Lymph % (Auto) [place] % (Auto) Eos % (Auto) Lymph # [place] # Eos # Seg Neutrophils % Seg Neutrophils # PT INR POC ABG pH POC ABG pCO2 POC ABG pO2 VBG pH Sodium Potassium Chloride Carbon Dioxide BUN Creatinine Glucose POC Glucose 140 H 120 H 137 H Calcium Magnesium AST ALT Alkaline Phosphatase Total Creatine Kinase NT-Pro-B Natriuret Pep Albumin Urine WBC (Auto) Crossmatch 11/19/18 11/19/18 11/19/18 00:20 05:35 06:11 WBC RBC Hgb Hct MCH MCHC RDW Plt Count Lymph % (Auto) [place] % (Auto) Eos % (Auto) Lymph # [place] # Eos # Seg Neutrophils % Seg Neutrophils # PT INR POC ABG pH POC ABG pCO2 POC ABG pO2 VBG pH Sodium Potassium Chloride Carbon Dioxide BUN Creatinine Glucose POC Glucose 111 H 126 H Calcium Magnesium AST ALT Alkaline Phosphatase Total Creatine Kinase 53 L NT-Pro-B Natriuret Pep Albumin Urine WBC (Auto) Crossmatch 11/19/18 11/19/18 11/20/18 11:37 23:43 06:52 WBC RBC Hgb Hct MCH MCHC RDW Plt Count Lymph % (Auto) [place] % (Auto) Eos % (Auto) Lymph # [place] # Eos # Seg Neutrophils % Seg Neutrophils # PT INR POC ABG pH POC ABG pCO2 POC ABG pO2 VBG pH Sodium Potassium Chloride Carbon Dioxide BUN Creatinine Glucose POC Glucose 139 H 145 H 125 H Calcium Magnesium AST ALT Alkaline Phosphatase Total Creatine Kinase NT-Pro-B Natriuret Pep Albumin Urine WBC (Auto) Crossmatch 11/20/18 11/20/18 11/20/18 09:55 09:55 11:49 WBC RBC 3.04 L Hgb 8.4 L Hct 26.1 L MCH MCHC RDW 17.5 H Plt Count Lymph % (Auto) [place] % (Auto) Eos % (Auto) Lymph # [place] # Eos # Seg Neutrophils % Seg Neutrophils # PT INR POC ABG pH POC ABG pCO2 POC ABG pO2 VBG pH Sodium 149 H Potassium Chloride 114.5 H Carbon Dioxide 21 L BUN 35 H Creatinine Glucose 127 H POC Glucose 150 H Calcium Magnesium AST ALT Alkaline Phosphatase Total Creatine Kinase NT-Pro-B Natriuret Pep Albumin Urine WBC (Auto) Crossmatch 11/20/18 11/20/18 11/21/18 18:02 23:49 06:14 WBC RBC Hgb Hct MCH MCHC RDW Plt Count Lymph % (Auto) [place] % (Auto) Eos % (Auto) Lymph # [place] # Eos # Seg Neutrophils % Seg Neutrophils # PT INR POC ABG pH POC ABG pCO2 POC ABG pO2 VBG pH Sodium Potassium Chloride Carbon Dioxide BUN Creatinine Glucose POC Glucose 131 H 137 H 133 H Calcium Magnesium AST ALT Alkaline Phosphatase Total Creatine Kinase NT-Pro-B Natriuret Pep Albumin Urine WBC (Auto) Crossmatch 11/21/18 11/21/18 11/21/18 10:00 12:09 18:04 WBC RBC Hgb Hct MCH MCHC RDW Plt Count Lymph % (Auto) [place] % (Auto) Eos % (Auto) Lymph # [place] # Eos # Seg Neutrophils % Seg Neutrophils # PT INR POC ABG pH POC ABG pCO2 POC ABG pO2 VBG pH Sodium Potassium Chloride 110.6 H Carbon Dioxide BUN 31 H Creatinine Glucose 119 H POC Glucose 116 H 126 H Calcium Magnesium AST ALT Alkaline Phosphatase Total Creatine Kinase NT-Pro-B Natriuret Pep Albumin Urine WBC (Auto) Crossmatch 11/22/18 11/22/18 11/22/18 00:14 05:47 06:23 WBC RBC Hgb Hct MCH MCHC RDW Plt Count Lymph % (Auto) [place] % (Auto) Eos % (Auto) Lymph # [place] # Eos # Seg Neutrophils % Seg Neutrophils # PT INR POC ABG pH POC ABG pCO2 POC ABG pO2 VBG pH Sodium Potassium Chloride 107.6 H Carbon Dioxide BUN 32 H Creatinine 0.7 L Glucose 116 H POC Glucose 122 H 119 H Calcium Magnesium AST ALT Alkaline Phosphatase Total Creatine Kinase NT-Pro-B Natriuret Pep Albumin Urine WBC (Auto) Crossmatch 11/22/18 11/22/18 11/22/18 08:40 12:19 17:39 WBC RBC Hgb Hct MCH MCHC RDW Plt Count Lymph % (Auto) [place] % (Auto) Eos % (Auto) Lymph # [place] # Eos # Seg Neutrophils % Seg Neutrophils # PT INR POC ABG pH POC ABG pCO2 POC ABG pO2 VBG pH Sodium Potassium Chloride Carbon Dioxide BUN Creatinine Glucose POC Glucose 150 H 111 H 108 H Calcium Magnesium AST ALT Alkaline Phosphatase Total Creatine Kinase NT-Pro-B Natriuret Pep Albumin Urine WBC (Auto) Crossmatch 11/23/18 11/23/18 11/23/18 00:36 05:37 05:56 WBC RBC Hgb Hct MCH MCHC RDW Plt Count Lymph % (Auto) [place] % (Auto) Eos % (Auto) Lymph # [place] # Eos # Seg Neutrophils % Seg Neutrophils # PT INR POC ABG pH POC ABG pCO2 POC ABG pO2 VBG pH Sodium 136 L Potassium Chloride Carbon Dioxide BUN 30 H Creatinine 0.7 L Glucose 103 H POC Glucose 125 H 122 H Calcium Magnesium 2.50 H AST ALT Alkaline Phosphatase Total Creatine Kinase NT-Pro-B Natriuret Pep Albumin Urine WBC (Auto) Crossmatch 11/23/18 11/23/18 11/23/18 11:56 17:39 23:40 WBC RBC Hgb Hct MCH MCHC RDW Plt Count Lymph % (Auto) [place] % (Auto) Eos % (Auto) Lymph # [place] # Eos # Seg Neutrophils % Seg Neutrophils # PT INR POC ABG pH POC ABG pCO2 POC ABG pO2 VBG pH Sodium Potassium Chloride Carbon Dioxide BUN Creatinine Glucose POC Glucose 121 H 113 H 117 H Calcium Magnesium AST ALT Alkaline Phosphatase Total Creatine Kinase NT-Pro-B Natriuret Pep Albumin Urine WBC (Auto) Crossmatch 11/24/18 11/24/18 11/24/18 05:13 12:00 18:13 WBC RBC Hgb Hct MCH MCHC RDW Plt Count Lymph % (Auto) [place] % (Auto) Eos % (Auto) Lymph # [place] # Eos # Seg Neutrophils % Seg Neutrophils # PT INR POC ABG pH POC ABG pCO2 POC ABG pO2 VBG pH Sodium Potassium Chloride Carbon Dioxide BUN Creatinine Glucose POC Glucose 143 H 123 H 124 H Calcium Magnesium AST ALT Alkaline Phosphatase Total Creatine Kinase NT-Pro-B Natriuret Pep Albumin Urine WBC (Auto) Crossmatch 11/24/18 11/25/18 11/25/18 23:34 05:25 05:25 WBC RBC 2.48 L Hgb 6.8 L Hct 21.2 L MCH MCHC RDW 17.7 H Plt Count Lymph % (Auto) [place] % (Auto) Eos % (Auto) Lymph # [place] # Eos # Seg Neutrophils % Seg Neutrophils # PT INR POC ABG pH POC ABG pCO2 POC ABG pO2 VBG pH Sodium Potassium Chloride 108.8 H Carbon Dioxide BUN 30 H Creatinine 0.7 L Glucose 112 H POC Glucose 115 H Calcium Magnesium AST ALT Alkaline Phosphatase Total Creatine Kinase NT-Pro-B Natriuret Pep Albumin Urine WBC (Auto) Crossmatch 11/25/18 11/25/18 11/25/18 06:46 11:15 11:28 WBC RBC Hgb 7.4 L Hct 23.0 L MCH MCHC RDW Plt Count Lymph % (Auto) [place] % (Auto) Eos % (Auto) Lymph # [place] # Eos # Seg Neutrophils % Seg Neutrophils # PT INR POC ABG pH POC ABG pCO2 POC ABG pO2 VBG pH Sodium Potassium Chloride Carbon Dioxide BUN Creatinine Glucose POC Glucose 133 H 127 H Calcium Magnesium AST ALT Alkaline Phosphatase Total Creatine Kinase NT-Pro-B Natriuret Pep Albumin Urine WBC (Auto) Crossmatch 11/25/18 11/25/18 11/25/18 15:28 17:32 23:45 WBC RBC Hgb Hct MCH MCHC RDW Plt Count Lymph % (Auto) [place] % (Auto) Eos % (Auto) Lymph # [place] # Eos # Seg Neutrophils % Seg Neutrophils # PT INR POC ABG pH POC ABG pCO2 POC ABG pO2 VBG pH Sodium Potassium Chloride Carbon Dioxide BUN Creatinine Glucose POC Glucose 115 H 130 H Calcium Magnesium AST ALT Alkaline Phosphatase Total Creatine Kinase NT-Pro-B Natriuret Pep Albumin Urine WBC (Auto) Crossmatch See Detail 11/26/18 11/26/18 11/26/18 06:13 06:20 06:20 WBC RBC 2.76 L Hgb 7.7 L Hct 23.4 L MCH MCHC RDW 17.5 H Plt Count Lymph % (Auto) [place] % (Auto) Eos % (Auto) Lymph # [place] # Eos # Seg Neutrophils % Seg Neutrophils # PT INR POC ABG pH POC ABG pCO2 POC ABG pO2 VBG pH Sodium Potassium Chloride 109.9 H Carbon Dioxide BUN 30 H Creatinine 0.6 L Glucose 121 H POC Glucose 129 H Calcium Magnesium AST ALT Alkaline Phosphatase Total Creatine Kinase NT-Pro-B Natriuret Pep Albumin Urine WBC (Auto) Crossmatch 11/26/18 11/26/18 11/27/18 12:06 16:35 06:04 WBC RBC Hgb Hct MCH MCHC RDW Plt Count Lymph % (Auto) [place] % (Auto) Eos % (Auto) Lymph # [place] # Eos # Seg Neutrophils % Seg Neutrophils # PT INR POC ABG pH POC ABG pCO2 POC ABG pO2 VBG pH Sodium Potassium Chloride Carbon Dioxide BUN Creatinine Glucose POC Glucose 139 H 107 H 126 H Calcium Magnesium AST ALT Alkaline Phosphatase Total Creatine Kinase NT-Pro-B Natriuret Pep Albumin Urine WBC (Auto) Crossmatch 11/27/18 11/27/18 11/28/18 13:14 17:47 07:03 WBC RBC Hgb Hct MCH MCHC RDW Plt Count Lymph % (Auto) [place] % (Auto) Eos % (Auto) Lymph # [place] # Eos # Seg Neutrophils % Seg Neutrophils # PT INR POC ABG pH POC ABG pCO2 POC ABG pO2 VBG pH Sodium Potassium Chloride Carbon Dioxide BUN Creatinine Glucose POC Glucose 130 H 115 H 118 H Calcium Magnesium AST ALT Alkaline Phosphatase Total Creatine Kinase NT-Pro-B Natriuret Pep Albumin Urine WBC (Auto) Crossmatch 11/28/18 11/29/18 11/29/18 11:38 00:35 04:56 WBC RBC Hgb Hct MCH MCHC RDW Plt Count Lymph % (Auto) [place] % (Auto) Eos % (Auto) Lymph # [place] # Eos # Seg Neutrophils % Seg Neutrophils # PT INR POC ABG pH POC ABG pCO2 POC ABG pO2 VBG pH Sodium Potassium Chloride Carbon Dioxide BUN Creatinine Glucose POC Glucose 126 H 107 H Calcium Magnesium AST ALT Alkaline Phosphatase Total Creatine Kinase 50 L NT-Pro-B Natriuret Pep Albumin Urine WBC (Auto) Crossmatch 11/29/18 11/29/18 11/29/18 05:49 11:46 18:17 WBC RBC Hgb Hct MCH MCHC RDW Plt Count Lymph % (Auto) [place] % (Auto) Eos % (Auto) Lymph # [place] # Eos # Seg Neutrophils % Seg Neutrophils # PT INR POC ABG pH POC ABG pCO2 POC ABG pO2 VBG pH Sodium Potassium Chloride Carbon Dioxide BUN Creatinine Glucose POC Glucose 128 H 140 H 115 H Calcium Magnesium AST ALT Alkaline Phosphatase Total Creatine Kinase NT-Pro-B Natriuret Pep Albumin Urine WBC (Auto) Crossmatch 11/30/18 11/30/18 11/30/18 00:00 03:30 03:30 WBC RBC 2.97 L Hgb 8.1 L Hct 25.5 L MCH 27 L MCHC RDW 17.7 H Plt Count Lymph % (Auto) 9.2 L [place] % (Auto) 10.0 H Eos % (Auto) 4.6 H Lymph # 1.0 L [place] # 1.1 H Eos # 0.5 H Seg Neutrophils % 75.6 H Seg Neutrophils # 8.4 H PT INR POC ABG pH POC ABG pCO2 POC ABG pO2 VBG pH Sodium Potassium Chloride Carbon Dioxide BUN 31 H Creatinine 0.7 L Glucose POC Glucose 120 H Calcium Magnesium AST ALT Alkaline Phosphatase Total Creatine Kinase NT-Pro-B Natriuret Pep Albumin Urine WBC (Auto) Crossmatch 11/30/18 11/30/18 11/30/18 06:54 11:45 16:59 WBC RBC Hgb Hct MCH MCHC RDW Plt Count Lymph % (Auto) [place] % (Auto) Eos % (Auto) Lymph # [place] # Eos # Seg Neutrophils % Seg Neutrophils # PT INR POC ABG pH POC ABG pCO2 POC ABG pO2 VBG pH Sodium Potassium Chloride Carbon Dioxide BUN Creatinine Glucose POC Glucose 120 H 123 H 111 H Calcium Magnesium AST ALT Alkaline Phosphatase Total Creatine Kinase NT-Pro-B Natriuret Pep Albumin Urine WBC (Auto) Crossmatch 12/01/18 12/01/18 12/01/18 00:20 05:58 11:33 WBC RBC Hgb Hct MCH MCHC RDW Plt Count Lymph % (Auto) [place] % (Auto) Eos % (Auto) Lymph # [place] # Eos # Seg Neutrophils % Seg Neutrophils # PT INR POC ABG pH POC ABG pCO2 POC ABG pO2 VBG pH Sodium Potassium Chloride Carbon Dioxide BUN Creatinine Glucose POC Glucose 113 H 127 H 138 H Calcium Magnesium AST ALT Alkaline Phosphatase Total Creatine Kinase NT-Pro-B Natriuret Pep Albumin Urine WBC (Auto) Crossmatch 12/02/18 12/03/18 12/03/18 00:33 05:07 05:07 WBC RBC 2.93 L Hgb 8.2 L Hct 24.9 L MCH MCHC RDW 17.0 H Plt Count 470 H Lymph % (Auto) 9.3 L [place] % (Auto) 8.6 H Eos % (Auto) 5.4 H Lymph # 0.9 L [place] # Eos # 0.5 H Seg Neutrophils % 75.8 H Seg Neutrophils # PT INR POC ABG pH POC ABG pCO2 POC ABG pO2 VBG pH Sodium Potassium Chloride Carbon Dioxide BUN 30 H Creatinine 0.6 L Glucose 115 H POC Glucose 110 H Calcium Magnesium AST ALT Alkaline Phosphatase Total Creatine Kinase NT-Pro-B Natriuret Pep Albumin Urine WBC (Auto) Crossmatch 12/03/18 12/03/18 12/03/18 05:58 11:49 17:44 WBC RBC Hgb Hct MCH MCHC RDW Plt Count Lymph % (Auto) [place] % (Auto) Eos % (Auto) Lymph # [place] # Eos # Seg Neutrophils % Seg Neutrophils # PT INR POC ABG pH POC ABG pCO2 POC ABG pO2 VBG pH Sodium Potassium Chloride Carbon Dioxide BUN Creatinine Glucose POC Glucose 127 H 138 H 127 H Calcium Magnesium AST ALT Alkaline Phosphatase Total Creatine Kinase NT-Pro-B Natriuret Pep Albumin Urine WBC (Auto) Crossmatch 12/05/18 12/05/18 12/05/18 00:22 05:53 17:18 WBC RBC Hgb Hct MCH MCHC RDW Plt Count Lymph % (Auto) [place] % (Auto) Eos % (Auto) Lymph # [place] # Eos # Seg Neutrophils % Seg Neutrophils # PT INR POC ABG pH POC ABG pCO2 POC ABG pO2 VBG pH Sodium Potassium Chloride Carbon Dioxide BUN Creatinine Glucose POC Glucose 124 H 121 H 112 H Calcium Magnesium AST ALT Alkaline Phosphatase Total Creatine Kinase NT-Pro-B Natriuret Pep Albumin Urine WBC (Auto) Crossmatch 12/06/18 12/06/18 12/06/18 00:07 06:16 11:43 WBC RBC Hgb Hct MCH MCHC RDW Plt Count Lymph % (Auto) [place] % (Auto) Eos % (Auto) Lymph # [place] # Eos # Seg Neutrophils % Seg Neutrophils # PT INR POC ABG pH POC ABG pCO2 POC ABG pO2 VBG pH Sodium Potassium Chloride Carbon Dioxide BUN Creatinine Glucose POC Glucose 111 H 117 H 121 H Calcium Magnesium AST ALT Alkaline Phosphatase Total Creatine Kinase NT-Pro-B Natriuret Pep Albumin Urine WBC (Auto) Crossmatch 12/06/18 12/07/18 12/07/18 20:57 06:41 12:09 WBC RBC Hgb Hct MCH MCHC RDW Plt Count Lymph % (Auto) [place] % (Auto) Eos % (Auto) Lymph # [place] # Eos # Seg Neutrophils % Seg Neutrophils # PT INR POC ABG pH POC ABG pCO2 POC ABG pO2 VBG pH Sodium Potassium Chloride 107.2 H Carbon Dioxide BUN 27 H Creatinine 0.7 L Glucose POC Glucose 128 H 137 H Calcium Magnesium 2.50 H AST ALT Alkaline Phosphatase Total Creatine Kinase NT-Pro-B Natriuret Pep Albumin Urine WBC (Auto) Crossmatch 12/07/18 12/08/18 12/08/18 19:29 05:44 12:27 WBC RBC Hgb Hct MCH MCHC RDW Plt Count Lymph % (Auto) [place] % (Auto) Eos % (Auto) Lymph # [place] # Eos # Seg Neutrophils % Seg Neutrophils # PT INR POC ABG pH POC ABG pCO2 POC ABG pO2 VBG pH Sodium Potassium Chloride Carbon Dioxide BUN Creatinine Glucose POC Glucose 110 H 126 H 130 H Calcium Magnesium AST ALT Alkaline Phosphatase Total Creatine Kinase NT-Pro-B Natriuret Pep Albumin Urine WBC (Auto) Crossmatch 12/08/18 12/09/18 12/09/18 17:44 00:20 06:42 WBC RBC Hgb Hct MCH MCHC RDW Plt Count Lymph % (Auto) [place] % (Auto) Eos % (Auto) Lymph # [place] # Eos # Seg Neutrophils % Seg Neutrophils # PT INR POC ABG pH POC ABG pCO2 POC ABG pO2 VBG pH Sodium Potassium Chloride Carbon Dioxide BUN Creatinine Glucose POC Glucose 113 H 121 H 124 H Calcium Magnesium AST ALT Alkaline Phosphatase Total Creatine Kinase NT-Pro-B Natriuret Pep Albumin Urine WBC (Auto) Crossmatch 12/09/18 12/09/18 12/09/18 12:24 18:41 23:48 WBC RBC Hgb Hct MCH MCHC RDW Plt Count Lymph % (Auto) [place] % (Auto) Eos % (Auto) Lymph # [place] # Eos # Seg Neutrophils % Seg Neutrophils # PT INR POC ABG pH POC ABG pCO2 POC ABG pO2 VBG pH Sodium Potassium Chloride Carbon Dioxide BUN Creatinine Glucose POC Glucose 114 H 109 H 128 H Calcium Magnesium AST ALT Alkaline Phosphatase Total Creatine Kinase NT-Pro-B Natriuret Pep Albumin Urine WBC (Auto) Crossmatch 12/10/18 12/10/18 12/11/18 07:07 11:28 00:24 WBC RBC Hgb Hct MCH MCHC RDW Plt Count Lymph % (Auto) [place] % (Auto) Eos % (Auto) Lymph # [place] # Eos # Seg Neutrophils % Seg Neutrophils # PT INR POC ABG pH POC ABG pCO2 POC ABG pO2 VBG pH Sodium Potassium Chloride Carbon Dioxide BUN Creatinine Glucose POC Glucose 111 H 110 H 112 H Calcium Magnesium AST ALT Alkaline Phosphatase Total Creatine Kinase NT-Pro-B Natriuret Pep Albumin Urine WBC (Auto) Crossmatch 12/11/18 12/11/18 12/11/18 06:44 11:53 18:17 WBC RBC Hgb Hct MCH MCHC RDW Plt Count Lymph % (Auto) [place] % (Auto) Eos % (Auto) Lymph # [place] # Eos # Seg Neutrophils % Seg Neutrophils # PT INR POC ABG pH POC ABG pCO2 POC ABG pO2 VBG pH Sodium Potassium Chloride Carbon Dioxide BUN Creatinine Glucose POC Glucose 111 H 132 H 133 H Calcium Magnesium AST ALT Alkaline Phosphatase Total Creatine Kinase NT-Pro-B Natriuret Pep Albumin Urine WBC (Auto) Crossmatch 12/11/18 12/12/18 12/12/18 23:58 00:05 06:11 WBC RBC 2.85 L Hgb 7.8 L Hct 24.4 L MCH 27 L MCHC RDW 17.4 H Plt Count 459 H Lymph % (Auto) [place] % (Auto) 11.2 H Eos % (Auto) 5.4 H Lymph # [place] # 1.1 H Eos # 0.5 H Seg Neutrophils % Seg Neutrophils # PT INR POC ABG pH POC ABG pCO2 POC ABG pO2 VBG pH Sodium Potassium Chloride Carbon Dioxide BUN Creatinine Glucose POC Glucose 126 H 144 H Calcium Magnesium AST ALT Alkaline Phosphatase Total Creatine Kinase NT-Pro-B Natriuret Pep Albumin Urine WBC (Auto) Crossmatch 12/12/18 12/12/18 12/13/18 11:42 18:36 00:12 WBC RBC Hgb Hct MCH MCHC RDW Plt Count Lymph % (Auto) [place] % (Auto) Eos % (Auto) Lymph # [place] # Eos # Seg Neutrophils % Seg Neutrophils # PT INR POC ABG pH POC ABG pCO2 POC ABG pO2 VBG pH Sodium Potassium Chloride Carbon Dioxide BUN Creatinine Glucose POC Glucose 106 H 117 H 115 H Calcium Magnesium AST ALT Alkaline Phosphatase Total Creatine Kinase NT-Pro-B Natriuret Pep Albumin Urine WBC (Auto) Crossmatch 12/13/18 12/13/18 12/13/18 05:58 11:52 23:57 WBC RBC Hgb Hct MCH MCHC RDW Plt Count Lymph % (Auto) [place] % (Auto) Eos % (Auto) Lymph # [place] # Eos # Seg Neutrophils % Seg Neutrophils # PT INR POC ABG pH POC ABG pCO2 POC ABG pO2 VBG pH Sodium Potassium Chloride Carbon Dioxide BUN Creatinine Glucose POC Glucose 122 H 129 H 125 H Calcium Magnesium AST ALT Alkaline Phosphatase Total Creatine Kinase NT-Pro-B Natriuret Pep Albumin Urine WBC (Auto) Crossmatch 12/14/18 12/14/18 12/14/18 04:44 04:44 05:44 WBC RBC 2.56 L Hgb 7.2 L Hct 22.1 L MCH MCHC RDW 17.8 H Plt Count 473 H Lymph % (Auto) [place] % (Auto) 11.5 H Eos % (Auto) 4.8 H Lymph # [place] # 1.1 H Eos # Seg Neutrophils % Seg Neutrophils # PT INR POC ABG pH POC ABG pCO2 POC ABG pO2 VBG pH Sodium 151 H Potassium Chloride 116.7 H Carbon Dioxide BUN 40 H Creatinine Glucose 114 H POC Glucose 117 H Calcium Magnesium AST 80 H ALT 67 H Alkaline Phosphatase 247 H Total Creatine Kinase NT-Pro-B Natriuret Pep Albumin 1.9 L Urine WBC (Auto) Crossmatch 12/14/18 12/15/18 12/15/18 11:29 00:01 05:13 WBC RBC 2.68 L Hgb 7.4 L Hct 23.1 L MCH MCHC RDW 17.6 H Plt Count 454 H Lymph % (Auto) 13.3 L [place] % (Auto) 9.7 H Eos % (Auto) 6.9 H Lymph # [place] # Eos # 0.6 H Seg Neutrophils % Seg Neutrophils # PT INR POC ABG pH POC ABG pCO2 POC ABG pO2 VBG pH Sodium Potassium Chloride Carbon Dioxide BUN Creatinine Glucose POC Glucose 115 H 113 H Calcium Magnesium AST ALT Alkaline Phosphatase Total Creatine Kinase NT-Pro-B Natriuret Pep Albumin Urine WBC (Auto) Crossmatch 12/15/18 12/15/18 12/15/18 05:13 06:31 11:31 WBC RBC Hgb Hct MCH MCHC RDW Plt Count Lymph % (Auto) [place] % (Auto) Eos % (Auto) Lymph # [place] # Eos # Seg Neutrophils % Seg Neutrophils # PT INR POC ABG pH POC ABG pCO2 POC ABG pO2 VBG pH Sodium 151 H Potassium Chloride 116.4 H Carbon Dioxide BUN 39 H Creatinine Glucose 110 H POC Glucose 130 H 127 H Calcium Magnesium AST 85 H ALT 78 H Alkaline Phosphatase 255 H Total Creatine Kinase NT-Pro-B Natriuret Pep Albumin 1.9 L Urine WBC (Auto) Crossmatch 12/15/18 12/16/18 12/16/18 17:54 00:27 00:33 WBC RBC Hgb Hct MCH MCHC RDW Plt Count Lymph % (Auto) [place] % (Auto) Eos % (Auto) Lymph # [place] # Eos # Seg Neutrophils % Seg Neutrophils # PT INR POC ABG pH POC ABG pCO2 POC ABG pO2 VBG pH Sodium Potassium Chloride Carbon Dioxide BUN Creatinine Glucose POC Glucose 122 H 131 H Calcium Magnesium AST ALT Alkaline Phosphatase Total Creatine Kinase 50 L NT-Pro-B Natriuret Pep Albumin Urine WBC (Auto) Crossmatch 12/16/18 12/16/18 12/16/18 05:31 11:31 17:22 WBC RBC Hgb Hct MCH MCHC RDW Plt Count Lymph % (Auto) [place] % (Auto) Eos % (Auto) Lymph # [place] # Eos # Seg Neutrophils % Seg Neutrophils # PT INR POC ABG pH POC ABG pCO2 POC ABG pO2 VBG pH Sodium Potassium Chloride Carbon Dioxide BUN Creatinine Glucose POC Glucose 138 H 121 H 114 H Calcium Magnesium AST ALT Alkaline Phosphatase Total Creatine Kinase NT-Pro-B Natriuret Pep Albumin Urine WBC (Auto) Crossmatch 12/16/18 12/17/18 12/17/18 23:56 05:01 05:01 WBC 11.1 H RBC 2.96 L Hgb 7.9 L Hct 25.7 L MCH 27 L MCHC 31 L RDW 17.9 H Plt Count 479 H Lymph % (Auto) 11.3 L [place] % (Auto) 7.5 H Eos % (Auto) 4.5 H Lymph # [place] # Eos # 0.5 H Seg Neutrophils % 75.9 H Seg Neutrophils # 8.4 H PT INR POC ABG pH POC ABG pCO2 POC ABG pO2 VBG pH Sodium 155 H Potassium Chloride 121.2 H Carbon Dioxide BUN 41 H Creatinine Glucose 122 H POC Glucose 137 H Calcium Magnesium AST 97 H ALT 99 H Alkaline Phosphatase 279 H Total Creatine Kinase NT-Pro-B Natriuret Pep Albumin 1.8 L Urine WBC (Auto) Crossmatch 12/17/18 12/17/18 12/18/18 11:52 18:17 00:17 WBC RBC Hgb Hct MCH MCHC RDW Plt Count Lymph % (Auto) [place] % (Auto) Eos % (Auto) Lymph # [place] # Eos # Seg Neutrophils % Seg Neutrophils # PT INR POC ABG pH POC ABG pCO2 POC ABG pO2 VBG pH Sodium Potassium Chloride Carbon Dioxide BUN Creatinine Glucose POC Glucose 142 H 140 H 160 H Calcium Magnesium AST ALT Alkaline Phosphatase Total Creatine Kinase NT-Pro-B Natriuret Pep Albumin Urine WBC (Auto) Crossmatch 12/18/18 12/18/18 12/18/18 05:39 05:40 05:40 WBC 11.7 H RBC 2.76 L Hgb 7.5 L Hct 23.8 L MCH 27 L MCHC 31 L RDW 17.8 H Plt Count Lymph % (Auto) [place] % (Auto) Eos % (Auto) Lymph # [place] # Eos # Seg Neutrophils % Seg Neutrophils # PT INR POC ABG pH POC ABG pCO2 POC ABG pO2 VBG pH Sodium 153 H Potassium Chloride 117.6 H Carbon Dioxide BUN 48 H Creatinine Glucose 122 H POC Glucose 138 H Calcium Magnesium AST ALT Alkaline Phosphatase Total Creatine Kinase NT-Pro-B Natriuret Pep Albumin Urine WBC (Auto) Crossmatch 12/18/18 12/18/18 12/19/18 11:32 17:26 00:38 WBC RBC Hgb Hct MCH MCHC RDW Plt Count Lymph % (Auto) [place] % (Auto) Eos % (Auto) Lymph # [place] # Eos # Seg Neutrophils % Seg Neutrophils # PT INR POC ABG pH POC ABG pCO2 POC ABG pO2 VBG pH Sodium Potassium Chloride Carbon Dioxide BUN Creatinine Glucose POC Glucose 136 H 125 H 126 H Calcium Magnesium AST ALT Alkaline Phosphatase Total Creatine Kinase NT-Pro-B Natriuret Pep Albumin Urine WBC (Auto) Crossmatch 12/19/18 12/19/18 12/19/18 05:22 05:22 06:19 WBC 12.2 H RBC 2.86 L Hgb 7.6 L Hct 24.4 L MCH 27 L MCHC 31 L RDW 17.8 H Plt Count Lymph % (Auto) [place] % (Auto) Eos % (Auto) Lymph # [place] # Eos # Seg Neutrophils % Seg Neutrophils # PT INR POC ABG pH POC ABG pCO2 POC ABG pO2 VBG pH Sodium Potassium 5.9 H D Chloride 109.7 H Carbon Dioxide BUN 45 H Creatinine Glucose 107 H POC Glucose 136 H Calcium 8.3 L Magnesium AST ALT Alkaline Phosphatase Total Creatine Kinase NT-Pro-B Natriuret Pep Albumin Urine WBC (Auto) Crossmatch 12/19/18 08:23 WBC RBC Hgb Hct MCH MCHC RDW Plt Count Lymph % (Auto) [place] % (Auto) Eos % (Auto) Lymph # [place] # Eos # Seg Neutrophils % Seg Neutrophils # PT INR POC ABG pH POC ABG pCO2 POC ABG pO2 VBG pH Sodium Potassium Chloride 107.7 H Carbon Dioxide BUN 42 H Creatinine Glucose 118 H POC Glucose Calcium Magnesium AST ALT Alkaline Phosphatase Total Creatine Kinase NT-Pro-B Natriuret Pep Albumin Urine WBC (Auto) Crossmatch Allied health notes reviewed: nursing
[2018-12-19] MEDS: MORPHINE IV PRN (12:09)
[2018-12-19] MEDS ORDERED: SILVER NITRATE TP ONE (12:21)
--- NOTE | 2018-12-19 13:41 | Procedure Note ---
Date of procedure: 12/19/18 Pre-op diagnosis: Multiple decubitus pressure ulcers Post-op diagnosis: same Procedure: Debridement of multiple decubitus pressure ulcers Description of procedure: Pt was appropriately positioned to expose his ulcerations. Ulcerated areas were prepped and draped prior to debridement. Right knee, left hip and left heel were surgically, excisionally debrided of necrotic SQ tissue and fascia with a curette. Bleeding was minimal and was controlled with silver nitrate. The sacrum, right medial leg, right lateral ankle, right elbow, right heel, right lateral leg, right lateral foot and left lateral ankle were surgically, excisionally debrided of necrotic SQ tissue with a curette. Bleeding was minimal and was controlled with silver nitrate. Wound were then dressed by the Wound Care nurse. Pt tolerated the procedure well. Final wound measurements were as follows: 1) Sacrum - 9 X 12 X 1 cm 2) Right medial leg - 9 X 3 X 0.3 cm 3) Right knee - 3 X 2.5 X 0.5 cm 4) Right lateral ankle - 1.5 X 1.5 X 0.3 cm 5) Right elbow - 1.5 X 1.5 X 0.3 cm 6) Right heel - 2.5 X 3 X 0.3 cm 7) Right lateral leg - 9 X 2 X 0.3 cm 8) Right lateral foot - 3 X 3 X 0.3 cm 9) Left hip - 4 X 4 X 10 cm 10) Left lateral ankle - 2.5 X 3 X 0.5 cm 11) Left heel - 2 X 4.5 X 0.3 cm Anesthesia: none Surgeon: FABRICIO WASHINGTON Estimated blood loss: minimal Pathology: none Specimen disposition: discarded Condition: stable Disposition: no change
[2018-12-19] MEDS: TYLENOL FEEDTUBE PRN (22:10)
[2018-12-20] MEDS: D5W 1,000 ML IV SCH ×2 (03:30→17:04)
[2018-12-20 06:28] LABS: BUN/Creatinine Ratio 44; Blood Urea Nitrogen 44 mg/dL (9-20); Calcium 8.9 mg/dL (8.4-10.2); Hemolysis Index 1
[2018-12-20] MEDS: KIONEX PO SCH ×2 (09:11→12:07)
[2018-12-20] MEDS: LOVENOX SUB-Q SCH (09:13)
[2018-12-20] MEDS: Centrum Liq FEEDTUBE SCH (09:15)
[2018-12-20] MEDS: APRESOLINE PO SCH ×2 (09:16→23:55)
[2018-12-20] MEDS: COREG PO SCH ×2 (09:17→23:56)
[2018-12-20] MEDS: ZINC SULFATE PO SCH (09:18)
[2018-12-20] MEDS: VITAMIN C FEEDTUBE SCH ×2 (09:19→23:57)
[2018-12-20] MEDS: MIRALAX 3350 FEEDTUBE SCH (09:19)
[2018-12-20] MEDS: SODIUM CHLORIDE FLUSH SYRINGE 10 ML IV SCH (09:19)
[2018-12-20] MEDS: KEPPRA FEEDTUBE SCH ×2 (10:26→23:56)
--- NOTE | 2018-12-20 15:50 | Progress Note ---
Assessment and Plan Assessment and plan: 7 YO Male [facility] Facility Resident as [facility] with HTN, CVA, Obstructive Uropathy, Diastolic CHF, Contracture, Sacral Decubitus Ulcers, NH, DM, OA, Seizure Disorder, COPD, Dementia, BPH presents to ED for evaluation. Pt is stuporous and unable to provide history. Pt history taken from ED Staff, EMS, and SNF Staff. As per staff, the patient was found to have respiratory distress upon evaluation this morning. Pt found to have pulse oximetry in the 80's. EMS notified and patient subsequently transported to [facility] for further care and evaluation. Pt seen and evaluated in ED and found to have UTI, Sepsis, Encephalopathy as well as Acute Hypoxemic Respiratory Failure. Extensive discussion with family about patients poor prognosis surgery consulted, did debridment ID following, Pulmonary status improved Continue isolation care Chaudhary placed by Urology. 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 He needs to be on contact isolation. This cannot be cured with antibiotics. recommend palliative care/comfort care or hospice, family are not interested in that option. Completed daptomycin for 6 weeks completed 12/16/2018 Sacral pressure ulcer -infected. POA Debridement done by Dr Man Amputation recommended and the daughter refused Respiratory failure Supplemental oxygen, nebulizer therapy, mgt per pulmonology ANEMIA of chronic disease Transfused one unit PRBC hemoglobin is stable Transfuse as necessary Seizure Continue current therapy, seizure precautions. BPH Continue Chaudhary catherter Dementia supportive care Hyperkalemia. Repeat Calcium gluconate 1 g iv DVT prophylaxis Prophylactic lovenox POOR PROGNOSIS Disposition; pending SNF placement. Multible debridements done again 12/19/18 History Interval history: had multiple debridement yesterday Hospitalist Physical - Physical exam Narrative exam: Gen: Not in acute distress. lying in bed Head exam is unremarkable. No scleral icterus . Neck is without jugular venous distension, thyromegaly, or carotid bruits. Lungs are clear to auscultation. Cardiac exam reveals regular rate and Rhythm. First and second heart sounds normal. No murmurs, rubs or gallops. Abdominal exam reveals non tender, not distended,normal bowel sounds, no masses, Extremities contracted extremities. [employer]: Awake,alert, contracted extremities Skin; multiple decubitus ulcers, including the sacrum , lower extremities bilateral. - Constitutional Vitals: Temp Pulse Resp BP Pulse Ox 98.2 F 98 H 20 119/54 99 12/20/18 07:39 12/20/18 10:00 12/20/18 07:39 12/20/18 09:17 12/20/18 10:00 General appearance: Present: no acute distress Results - Labs CBC & Chem 7: 12/19/18 05:22 12/20/18 05:52 Labs: Laboratory Last Values WBC 12.2 K/mm3 (4.5-11.0) H 12/19/18 05:22 RBC 2.86 M/mm3 (3.65-5.03) L 12/19/18 05:22 Hgb 7.6 gm/dl (11.8-15.2) L 12/19/18 05:22 Hct 24.4 % (35.5-45.6) L 12/19/18 05:22 MCV 86 fl (84-94) 12/19/18 05:22 MCH 27 pg (28-32) L 12/19/18 05:22 MCHC 31 % (32-34) L 12/19/18 05:22 RDW 17.8 % (13.2-15.2) H 12/19/18 05:22 Plt Count 424 K/mm3 (140-440) 12/19/18 05:22 Lymph % (Auto) 11.3 % (13.4-35.0) L 12/17/18 05:01 [place] % (Auto) 7.5 % (0.0-7.3) H 12/17/18 05:01 Eos % (Auto) 4.5 % (0.0-4.3) H 12/17/18 05:01 Baso % (Auto) 0.8 % (0.0-1.8) 12/17/18 05:01 Lymph # 1.3 K/mm3 (1.2-5.4) 12/17/18 05:01 [place] # 0.8 K/mm3 (0.0-0.8) 12/17/18 05:01 Eos # 0.5 K/mm3 (0.0-0.4) H 12/17/18 05:01 Baso # 0.1 K/mm3 (0.0-0.1) 12/17/18 05:01 Seg Neutrophils % 75.9 % (40.0-70.0) H 12/17/18 05:01 Seg Neutrophils # 8.4 K/mm3 (1.8-7.7) H 12/17/18 05:01 PT 16.3 Sec. (12.2-14.9) H 11/01/18 14:50 INR 1.35 (0.87-1.13) H 11/01/18 14:50 POC ABG pH 7.494 (7.35-7.45) H 11/01/18 15:27 POC ABG pCO2 34.5 (35-45) L 11/01/18 15:27 POC ABG pO2 139 (80-105) H 11/01/18 15:27 POC ABG HCO3 26.5 (22-26 mml/L) 11/01/18 15:27 POC ABG Total CO2 28 (23-27mmol/L) 11/01/18 15:27 POC ABG O2 Sat 99 11/01/18 15:27 POC ABG Base Excess 3 ((-2) - (+3)mmol/L) 11/01/18 15:27 VBG pH 7.499 (7.320-7.420) H 11/01/18 14:50 50 % 11/01/18 15:27 Sodium 141 mmol/L (137-145) 12/20/18 05:52 Potassium 5.2 mmol/L (3.6-5.0) H 12/20/18 05:52 Chloride 107.2 mmol/L (98-107) H 12/20/18 05:52 Carbon Dioxide 21 mmol/L (22-30) L 12/20/18 05:52 18 mmol/L 12/20/18 05:52 BUN 44 mg/dL (9-20) H 12/20/18 05:52 1.0 mg/dL (0.8-1.5) 12/20/18 05:52 Estimated GFR > 60 ml/min 12/20/18 05:52 44 % 12/20/18 05:52 Glucose 118 mg/dL (75-100) H 12/20/18 05:52 POC Glucose 134 (70-105) H 12/20/18 11:34 Lactic Acid 1.80 mmol/L (0.7-2.0) 11/01/18 14:50 Calcium 8.9 mg/dL (8.4-10.2) 12/20/18 05:52 Phosphorus 2.90 mg/dL (2.5-4.5) 11/22/18 09:43 Magnesium 2.50 mg/dL (1.7-2.3) H 12/06/18 20:57 0.20 mg/dL (0.1-1.2) 12/17/18 05:01 AST 97 units/L (5-40) H 12/17/18 05:01 ALT 99 units/L (7-56) H 12/17/18 05:01 279 units/L (35-129) H 12/17/18 05:01 50 units/L (55-170) L 12/16/18 00:27 NT-Pro-B Natriuret Pep 6776 pg/mL (0-900) H 11/01/18 14:50 7.7 g/dL (6.3-8.2) 12/17/18 05:01 1.8 g/dL (3.9-5) L 12/17/18 05:01 0.3 % 12/17/18 05:01 14 units/L (13-60) 11/25/18 15:07 Yellow (Yellow) 11/01/18 15:57 Turbid (Clear) 11/01/18 15:57 6.0 (5.0-7.0) 11/01/18 15:57 Ur Specific [place] 1.016 (1.003-1.030) 11/01/18 15:57 100 mg/dl mg/dL (Negative) 11/01/18 15:57 Neg mg/dL (Negative) 11/01/18 15:57 Neg mg/dL (Negative) 11/01/18 15:57 Neg (Negative) 11/01/18 15:57 Neg (Negative) 11/01/18 15:57 Neg (Negative) 11/01/18 15:57 < 2.0 mg/dL (<2.0) 11/01/18 15:57 Ur Leukocyte Esterase Mod (Negative) 11/01/18 15:57 > 182.0 /HPF (0.0-6.0) H 11/01/18 15:57 40.0 /HPF (0.0-6.0) 11/01/18 15:57 U Epithel Cells (Auto) 8.0 /HPF (0-13.0) 11/01/18 15:57 3+ /HPF 11/01/18 15:57 3+ /HPF 11/01/18 15:57 Random Vancomycin 13.9 ug/mL (0-40.0) 11/02/18 05:05 Blood Type O POSITIVE 11/25/18 15:28 Antibody Screen Negative 11/25/18 15:28 Crossmatch See Detail 11/25/18 15:28 Active Medications - Current Medications Current Medications: Generic Name Dose Route Start Last Admin Trade Name Freq PRN Reason Stop Dose Admin Acetaminophen 650 mg 12/11/18 15:21 12/19/18 22:10 Tylenol FEEDTUBE 650 mg Q6H PRN Administration Pain, Mild (1-3) Albuterol 2.5 mg 11/01/18 17:15 Proventil IH Q3HRT PRN Shortness Of Breath Lipase/Protease/Amylase 1 each 12/16/18 13:57 Pancreaze 10,500 Unit FEEDTUBE PRN PRN For Clogged Feeding Tube Ascorbic Acid 500 mg 11/01/18 22:00 12/20/18 09:19 Vitamin C FEEDTUBE 500 mg BID NORA Administration Atorvastatin Calcium 40 mg 11/01/18 22:00 12/19/18 22:51 Lipitor FEEDTUBE 40 mg QHS NORA Administration Carvedilol 6.25 mg 11/08/18 13:00 12/20/18 09:17 Coreg PO 6.25 mg BID NORA Administration Clonidine HCl 0.2 mg 11/05/18 17:18 12/17/18 17:31 Catapres-Tts Patch TD 0.2 mg Tu NORA Administration Enoxaparin Sodium 40 mg 11/02/18 10:00 12/20/18 09:13 Lovenox SUB-Q 40 mg QDAY@1000 NORA Administration Hydralazine HCl 10 mg 11/25/18 22:00 12/20/18 09:16 Apresoline PO Not Given Q12HR NORA Dextrose 1,000 mls @ 75 mls/hr 12/16/18 09:30 12/20/18 03:30 D5w IV 75 mls/hr DIRECT NORA Administration Levetiracetam 500 mg 11/01/18 22:00 12/20/18 10:26 Keppra FEEDTUBE 500 mg BID NORA Administration Mineral Oil 133 ml 12/10/18 14:55 Fleet Mineral Oil MA QDAY PRN Constipation Morphine Sulfate 2 mg 11/01/18 17:15 12/19/18 12:09 Morphine IV 2 mg Q4H PRN Administration Pain, Moderate (4-6) Multivitamins 5 ml 11/02/18 10:00 12/20/18 09:15 Centrum Liq FEEDTUBE 5 ml QDAY NORA Administration Polyethylene Glycol 17 gm 12/10/18 15:00 12/20/18 09:19 Miralax 3350 FEEDTUBE Not Given QDAY NORA Senna 8.6 mg 12/10/18 14:56 Senokot FEEDTUBE Q12H PRN Laxative Effect Simple Syrup 15 ml 12/16/18 13:57 Simple Syrup FEEDTUBE PRN PRN Hypoglycemia Simple Syrup 30 ml 12/16/18 13:57 Simple Syrup FEEDTUBE PRN PRN Hypoglycemia Sodium Bicarbonate 325 mg 12/16/18 13:57 Sodium Bicarbonate FEEDTUBE PRN PRN For Clogged Feeding Tube Sodium Biphosphate/Sodium Phosphate 133 ml 12/10/18 14:55 Fleet MA QDAY PRN Bowel Movement Sodium Chloride 10 ml 11/01/18 22:00 12/20/18 09:19 Sodium Chloride Flush Syringe 10 Ml IV 10 ml BID NORA Administration Sodium Chloride 10 ml 11/01/18 17:15 11/23/18 04:05 Sodium Chloride Flush Syringe 10 Ml IV 10 ml PRN PRN Administration LINE FLUSH Zinc Sulfate 220 mg 11/02/18 10:00 12/20/18 09:18 Zinc Sulfate PO 220 mg DAILY NORA Administration Nutrition/Malnutrition Assess - Dietary Evaluation Nutrition/Malnutrition Findings: Nutrition Notes Start: 11/04/18 16:00 Freq: Status: Active Protocol: Document 12/18/18 17:40 RM (Rec: 12/18/18 17:45 RM [id number]) Nutrition Notes Initial or Follow up Reassessment Current Diagnosis COPD,Diabetes,Sepsis, Hypertension,Heart Failure, Stroke Other Pertinent Diagnosis Infected sacral decubitus, Dementia, BPH, UTI Current Diet TF - Glucerna 1.2 at 70ml/hr + Mario BID Labs/Tests Na 153 Pertinent Medications Reviewed Height 5 ft 8 in Weight 62.1 kg [place] Body Weight (kg) 70.00 BMI 20.8 Subjective/Other Information Observed Glucerna infusing at goal rate. Nurse stated that she plans to give pt Mario and that pt is tolerating TF. Percent of energy/protein needs met: 95%/100% Burn Absent Trauma Absent #1 Nutrition Diagnosis Inadequate oral intake Diagnosis Progress(for reassessment Continues documentation) Is patient on ventilator? No Is Patient Ambulatory and/or Out of Bed No REE-([facility]-confined to bed) [phone] Kcal/Kg value to use for calculation 34 Approximate Energy Requirements Using 2111 kcal/Kg Calculation Used for Recommendations Kcal/kg Additional Notes Pro needs 1.5-2g/k-124g/ day Fluid needs 1ml/kcal Nutrition Intervention Nutrition Support: Glucerna 1.2 at 70ml/hr Water flush of 200 mls q 4 hrs until hypernatremia resolves. Water flush of 100 mls q 4 hrs once hypernatremia resolves. Kcal 2,016 Protein (gm) 101 Carbohydrates (gm) 192 Fat (gm) 101 Fluid (mL) 1,352 Add Supplement/Snack (indicate name/kcal Mario BID /protein ) Provides kCal: 190 Provides Protein (gm) 5 Goal #1 TF tolerance Goal #2 TF to continue to meet at least 75% of calorie and protein needs Follow-Up By: 12/21/18 Additional Comments Follow for TF tolerance, Mario administration
--- NOTE | 2018-12-20 16:08 | Progress Note ---
Assessment and Plan (1) Sepsis- severe Current Visit: Yes Status: Acute Plan to address problem: Antibiotics per ID (2) Respiratory failure Current Visit: Yes Status: Acute Qualifiers: Chronicity: acute Respiratory failure complication: hypoxia Qualified Code(s): J96.01 - Acute respiratory failure with hypoxia Plan to address problem: Supplemental oxygen wean fro O2 sats >90% Bronchodilators per protocol (3) Seizure Current Visit: Yes Status: Acute Plan to address problem: Continue current therapy, seizure precautions. (4) UTI (urinary tract infection) Current Visit: Yes Status: Acute Qualifiers: Encounter type: initial encounter Plan to address problem: IV antibiotic therapy (5) Dementia Current Visit: Yes Status: Acute Qualifiers: Dementia behavioral disturbance: without behavioral disturbance Plan to address problem: Per primary (6) Sacral pressure ulcer -infected, POA Continue antibiotics and wound care Off loading s/p debridement yesterday (7)DVT prophylaxis Current Visit: Yes Plan to address problem: SCD to BLE while in bed, (8) Hematuria s/p 3 way bright catheter. POOR PROGNOSIS Discharge planning Subjective Date of service: 12/20/18 Principal diagnosis: Severe Sepsis; Ac. Hypoxemic Resp failure; Anemia; Seizure; UTI; BPH Interval history: Patient is seen today for: Severe Sepsis; Acute Hypoxemic Respiratory failure; Anemia of chronic disease; Seizure; UTI (urinary tract infection); BPH; Dementia; sacral pressure ulcer -infected. POA Seen and examined at bedside; 24-hour events reviewed; nursing and respiratory care staff consulted; no adverse overnight events reported to me; resting peacefully in bed; No N/V/F/C; s/p debridment of multiple pressure ulcers yesterday; Vitals, labs, medications, chart reviewed. Off supplemental oxygen comfortable, Right chest wall tunnelled PICC line, Objective Vital Signs - 12hr 12/20/18 12/20/18 12/20/18 07:39 09:17 10:00 Temperature 98.2 F Pulse Rate 100 H 98 H Pulse Rate [ 98 H From Monitor] Respiratory 20 Rate Blood Pressure 114/59 119/54 O2 Sat by Pulse 99 99 Oximetry Constitutional: no acute distress, appears uncomfortable Eyes: non-icteric ENT: oropharynx moist Neck: no lymphadenopathy, no JVD Effort: normal Ascultation: Bilateral: clear, diminished breath sounds Cardiovascular: regular rate and rhythm Gastrointestinal: normoactive bowel sounds, soft, non-tender, non-distended, other (PEG) Integumentary: rash Extremities: no cyanosis, no edema, pulses normal, other (Patient has pressure ulcer at multiple areas, including sacral area.) Neurologic: pupils equal and round, other (+ contractures) Psychiatric: depressed, other (flat) CBC and BMP: 12/21/18 05:37 12/21/18 05:37 ABG, PT/INR, D-dimer: ABG POC ABG pH 7.494 (7.35-7.45) H 11/01/18 15:27 POC ABG pCO2 34.5 (35-45) L 11/01/18 15:27 POC ABG pO2 139 (80-105) H 11/01/18 15:27 POC ABG HCO3 26.5 (22-26 mml/L) 11/01/18 15:27 POC ABG Total CO2 28 (23-27mmol/L) 11/01/18 15:27 POC ABG O2 Sat 99 11/01/18 15:27 PT/INR, D-dimer PT 16.3 Sec. (12.2-14.9) H 11/01/18 14:50 INR 1.35 (0.87-1.13) H 11/01/18 14:50 Abnormal lab findings: Abnormal Labs 11/01/18 11/01/18 11/01/18 14:50 14:50 14:50 WBC 15.3 H RBC 2.76 L Hgb 7.9 L Hct 23.5 L MCH MCHC RDW 18.3 H Plt Count 567 H Lymph % (Auto) 6.5 L [place] % (Auto) 8.5 H Eos % (Auto) Lymph # 1.0 L [place] # 1.3 H Eos # Seg Neutrophils % 83.4 H Seg Neutrophils # 12.7 H PT 16.3 H INR 1.35 H POC ABG pH POC ABG pCO2 POC ABG pO2 VBG pH Sodium Potassium Chloride Carbon Dioxide BUN 49 H Creatinine Glucose 132 H POC Glucose Calcium Magnesium AST 90 H ALT 77 H Alkaline Phosphatase 350 H Total Creatine Kinase NT-Pro-B Natriuret Pep Albumin 1.6 L Urine WBC (Auto) Crossmatch 11/01/18 11/01/18 11/01/18 14:50 14:50 15:27 WBC RBC Hgb Hct MCH MCHC RDW Plt Count Lymph % (Auto) [place] % (Auto) Eos % (Auto) Lymph # [place] # Eos # Seg Neutrophils % Seg Neutrophils # PT INR POC ABG pH 7.494 H POC ABG pCO2 34.5 L POC ABG pO2 139 H VBG pH 7.499 H Sodium Potassium Chloride Carbon Dioxide BUN Creatinine Glucose POC Glucose Calcium Magnesium AST ALT Alkaline Phosphatase Total Creatine Kinase NT-Pro-B Natriuret Pep 6776 H Albumin Urine WBC (Auto) Crossmatch 11/01/18 11/03/18 11/03/18 15:57 03:41 03:41 WBC 12.8 H RBC 2.55 L Hgb 6.9 L Hct 22.2 L MCH 27 L MCHC 31 L RDW 17.9 H Plt Count 519 H Lymph % (Auto) [place] % (Auto) Eos % (Auto) Lymph # [place] # Eos # Seg Neutrophils % Seg Neutrophils # PT INR POC ABG pH POC ABG pCO2 POC ABG pO2 VBG pH Sodium 147 H Potassium Chloride 110.3 H Carbon Dioxide BUN 55 H Creatinine Glucose POC Glucose Calcium Magnesium AST ALT Alkaline Phosphatase Total Creatine Kinase NT-Pro-B Natriuret Pep Albumin Urine WBC (Auto) > 182.0 H Crossmatch 11/03/18 11/04/18 11/04/18 12:51 05:12 05:12 WBC 11.5 H RBC 2.94 L Hgb 8.3 L Hct 25.3 L MCH MCHC RDW 17.3 H Plt Count 514 H Lymph % (Auto) [place] % (Auto) Eos % (Auto) Lymph # [place] # Eos # Seg Neutrophils % Seg Neutrophils # PT INR POC ABG pH POC ABG pCO2 POC ABG pO2 VBG pH Sodium 147 H Potassium Chloride 112.4 H Carbon Dioxide BUN 52 H Creatinine Glucose POC Glucose Calcium Magnesium AST ALT Alkaline Phosphatase Total Creatine Kinase NT-Pro-B Natriuret Pep Albumin Urine WBC (Auto) Crossmatch See Detail 11/05/18 11/05/18 11/06/18 04:50 04:50 05:42 WBC RBC 3.03 L 2.80 L Hgb 8.7 L 7.9 L Hct 26.6 L 24.7 L MCH MCHC RDW 17.1 H 17.0 H Plt Count 502 H 478 H Lymph % (Auto) 10.4 L [place] % (Auto) 8.6 H Eos % (Auto) 4.7 H Lymph # 1.0 L [place] # Eos # 0.5 H Seg Neutrophils % 75.6 H Seg Neutrophils # PT INR POC ABG pH POC ABG pCO2 POC ABG pO2 VBG pH Sodium 149 H Potassium Chloride 114.4 H Carbon Dioxide 21 L BUN 50 H Creatinine Glucose 108 H POC Glucose Calcium Magnesium AST ALT Alkaline Phosphatase Total Creatine Kinase NT-Pro-B Natriuret Pep Albumin Urine WBC (Auto) Crossmatch 11/06/18 11/11/18 11/12/18 05:42 18:54 00:22 WBC RBC Hgb Hct MCH MCHC RDW Plt Count Lymph % (Auto) [place] % (Auto) Eos % (Auto) Lymph # [place] # Eos # Seg Neutrophils % Seg Neutrophils # PT INR POC ABG pH POC ABG pCO2 POC ABG pO2 VBG pH Sodium 149 H Potassium Chloride 113.4 H Carbon Dioxide BUN 50 H Creatinine Glucose 121 H POC Glucose 114 H 123 H Calcium Magnesium AST ALT Alkaline Phosphatase Total Creatine Kinase NT-Pro-B Natriuret Pep Albumin Urine WBC (Auto) Crossmatch 11/12/18 11/12/18 11/13/18 06:49 11:35 06:34 WBC RBC Hgb Hct MCH MCHC RDW Plt Count Lymph % (Auto) [place] % (Auto) Eos % (Auto) Lymph # [place] # Eos # Seg Neutrophils % Seg Neutrophils # PT INR POC ABG pH POC ABG pCO2 POC ABG pO2 VBG pH Sodium Potassium Chloride Carbon Dioxide BUN Creatinine Glucose POC Glucose 129 H 123 H 128 H Calcium Magnesium AST ALT Alkaline Phosphatase Total Creatine Kinase NT-Pro-B Natriuret Pep Albumin Urine WBC (Auto) Crossmatch 11/13/18 11/13/18 11/13/18 09:26 09:26 15:13 WBC RBC 3.08 L Hgb 8.6 L Hct 27.3 L MCH MCHC 31 L RDW 18.3 H Plt Count 504 H Lymph % (Auto) 11.7 L [place] % (Auto) 7.5 H Eos % (Auto) 7.0 H Lymph # [place] # Eos # 0.7 H Seg Neutrophils % 72.9 H Seg Neutrophils # PT INR POC ABG pH POC ABG pCO2 POC ABG pO2 VBG pH Sodium 153 H Potassium 6.3 H* 5.8 H Chloride 122.3 H Carbon Dioxide 21 L BUN 38 H Creatinine Glucose 112 H POC Glucose Calcium Magnesium AST ALT Alkaline Phosphatase Total Creatine Kinase NT-Pro-B Natriuret Pep Albumin Urine WBC (Auto) Crossmatch 11/13/18 11/13/18 11/14/18 22:10 23:45 13:17 WBC RBC Hgb Hct MCH MCHC RDW Plt Count Lymph % (Auto) [place] % (Auto) Eos % (Auto) Lymph # [place] # Eos # Seg Neutrophils % Seg Neutrophils # PT INR POC ABG pH POC ABG pCO2 POC ABG pO2 VBG pH Sodium 155 H Potassium 5.3 H Chloride 122.3 H Carbon Dioxide BUN 35 H Creatinine Glucose 113 H POC Glucose 111 H 142 H Calcium Magnesium AST ALT Alkaline Phosphatase Total Creatine Kinase NT-Pro-B Natriuret Pep Albumin Urine WBC (Auto) Crossmatch 11/14/18 11/15/18 11/15/18 19:08 00:31 06:45 WBC RBC Hgb Hct MCH MCHC RDW Plt Count Lymph % (Auto) [place] % (Auto) Eos % (Auto) Lymph # [place] # Eos # Seg Neutrophils % Seg Neutrophils # PT INR POC ABG pH POC ABG pCO2 POC ABG pO2 VBG pH Sodium Potassium Chloride Carbon Dioxide BUN Creatinine Glucose POC Glucose 116 H 125 H 131 H Calcium Magnesium AST ALT Alkaline Phosphatase Total Creatine Kinase NT-Pro-B Natriuret Pep Albumin Urine WBC (Auto) Crossmatch 11/15/18 11/15/18 11/15/18 07:13 07:13 19:03 WBC 13.2 H RBC 2.81 L Hgb 7.8 L Hct 24.5 L MCH MCHC RDW 18.2 H Plt Count 454 H Lymph % (Auto) 9.0 L [place] % (Auto) 7.5 H Eos % (Auto) Lymph # [place] # 1.0 H Eos # 0.5 H Seg Neutrophils % 78.8 H Seg Neutrophils # 10.4 H PT INR POC ABG pH POC ABG pCO2 POC ABG pO2 VBG pH Sodium 149 H Potassium 5.2 H Chloride 117.2 H Carbon Dioxide BUN 38 H Creatinine Glucose 114 H POC Glucose 141 H Calcium Magnesium AST ALT Alkaline Phosphatase Total Creatine Kinase NT-Pro-B Natriuret Pep Albumin Urine WBC (Auto) Crossmatch 11/16/18 11/16/18 11/16/18 01:15 01:15 06:45 WBC RBC Hgb Hct MCH MCHC RDW Plt Count Lymph % (Auto) [place] % (Auto) Eos % (Auto) Lymph # [place] # Eos # Seg Neutrophils % Seg Neutrophils # PT INR POC ABG pH POC ABG pCO2 POC ABG pO2 VBG pH Sodium Potassium 5.3 H Chloride Carbon Dioxide BUN Creatinine Glucose POC Glucose 129 H Calcium Magnesium 2.60 H AST ALT Alkaline Phosphatase Total Creatine Kinase NT-Pro-B Natriuret Pep Albumin Urine WBC (Auto) Crossmatch 11/16/18 11/16/18 11/17/18 13:20 18:02 00:16 WBC RBC Hgb Hct MCH MCHC RDW Plt Count Lymph % (Auto) [place] % (Auto) Eos % (Auto) Lymph # [place] # Eos # Seg Neutrophils % Seg Neutrophils # PT INR POC ABG pH POC ABG pCO2 POC ABG pO2 VBG pH Sodium Potassium Chloride Carbon Dioxide BUN Creatinine Glucose POC Glucose 130 H 127 H 120 H Calcium Magnesium AST ALT Alkaline Phosphatase Total Creatine Kinase NT-Pro-B Natriuret Pep Albumin Urine WBC (Auto) Crossmatch 11/17/18 11/17/18 11/17/18 05:48 08:02 08:02 WBC RBC Hgb 7.5 L Hct 23.5 L MCH MCHC RDW Plt Count Lymph % (Auto) [place] % (Auto) Eos % (Auto) Lymph # [place] # Eos # Seg Neutrophils % Seg Neutrophils # PT INR POC ABG pH POC ABG pCO2 POC ABG pO2 VBG pH Sodium Potassium Chloride 110.1 H Carbon Dioxide 21 L BUN 38 H Creatinine Glucose 121 H POC Glucose 130 H Calcium Magnesium AST ALT Alkaline Phosphatase Total Creatine Kinase NT-Pro-B Natriuret Pep Albumin Urine WBC (Auto) Crossmatch 11/17/18 11/17/18 11/18/18 12:17 16:48 06:00 WBC RBC Hgb Hct MCH MCHC RDW Plt Count Lymph % (Auto) [place] % (Auto) Eos % (Auto) Lymph # [place] # Eos # Seg Neutrophils % Seg Neutrophils # PT INR POC ABG pH POC ABG pCO2 POC ABG pO2 VBG pH Sodium Potassium Chloride Carbon Dioxide BUN Creatinine Glucose POC Glucose 140 H 120 H 137 H Calcium Magnesium AST ALT Alkaline Phosphatase Total Creatine Kinase NT-Pro-B Natriuret Pep Albumin Urine WBC (Auto) Crossmatch 11/19/18 11/19/18 11/19/18 00:20 05:35 06:11 WBC RBC Hgb Hct MCH MCHC RDW Plt Count Lymph % (Auto) [place] % (Auto) Eos % (Auto) Lymph # [place] # Eos # Seg Neutrophils % Seg Neutrophils # PT INR POC ABG pH POC ABG pCO2 POC ABG pO2 VBG pH Sodium Potassium Chloride Carbon Dioxide BUN Creatinine Glucose POC Glucose 111 H 126 H Calcium Magnesium AST ALT Alkaline Phosphatase Total Creatine Kinase 53 L NT-Pro-B Natriuret Pep Albumin Urine WBC (Auto) Crossmatch 11/19/18 11/19/18 11/20/18 11:37 23:43 06:52 WBC RBC Hgb Hct MCH MCHC RDW Plt Count Lymph % (Auto) [place] % (Auto) Eos % (Auto) Lymph # [place] # Eos # Seg Neutrophils % Seg Neutrophils # PT INR POC ABG pH POC ABG pCO2 POC ABG pO2 VBG pH Sodium Potassium Chloride Carbon Dioxide BUN Creatinine Glucose POC Glucose 139 H 145 H 125 H Calcium Magnesium AST ALT Alkaline Phosphatase Total Creatine Kinase NT-Pro-B Natriuret Pep Albumin Urine WBC (Auto) Crossmatch 11/20/18 11/20/18 11/20/18 09:55 09:55 11:49 WBC RBC 3.04 L Hgb 8.4 L Hct 26.1 L MCH MCHC RDW 17.5 H Plt Count Lymph % (Auto) [place] % (Auto) Eos % (Auto) Lymph # [place] # Eos # Seg Neutrophils % Seg Neutrophils # PT INR POC ABG pH POC ABG pCO2 POC ABG pO2 VBG pH Sodium 149 H Potassium Chloride 114.5 H Carbon Dioxide 21 L BUN 35 H Creatinine Glucose 127 H POC Glucose 150 H Calcium Magnesium AST ALT Alkaline Phosphatase Total Creatine Kinase NT-Pro-B Natriuret Pep Albumin Urine WBC (Auto) Crossmatch 11/20/18 11/20/18 11/21/18 18:02 23:49 06:14 WBC RBC Hgb Hct MCH MCHC RDW Plt Count Lymph % (Auto) [place] % (Auto) Eos % (Auto) Lymph # [place] # Eos # Seg Neutrophils % Seg Neutrophils # PT INR POC ABG pH POC ABG pCO2 POC ABG pO2 VBG pH Sodium Potassium Chloride Carbon Dioxide BUN Creatinine Glucose POC Glucose 131 H 137 H 133 H Calcium Magnesium AST ALT Alkaline Phosphatase Total Creatine Kinase NT-Pro-B Natriuret Pep Albumin Urine WBC (Auto) Crossmatch 11/21/18 11/21/18 11/21/18 10:00 12:09 18:04 WBC RBC Hgb Hct MCH MCHC RDW Plt Count Lymph % (Auto) [place] % (Auto) Eos % (Auto) Lymph # [place] # Eos # Seg Neutrophils % Seg Neutrophils # PT INR POC ABG pH POC ABG pCO2 POC ABG pO2 VBG pH Sodium Potassium Chloride 110.6 H Carbon Dioxide BUN 31 H Creatinine Glucose 119 H POC Glucose 116 H 126 H Calcium Magnesium AST ALT Alkaline Phosphatase Total Creatine Kinase NT-Pro-B Natriuret Pep Albumin Urine WBC (Auto) Crossmatch 11/22/18 11/22/18 11/22/18 00:14 05:47 06:23 WBC RBC Hgb Hct MCH MCHC RDW Plt Count Lymph % (Auto) [place] % (Auto) Eos % (Auto) Lymph # [place] # Eos # Seg Neutrophils % Seg Neutrophils # PT INR POC ABG pH POC ABG pCO2 POC ABG pO2 VBG pH Sodium Potassium Chloride 107.6 H Carbon Dioxide BUN 32 H Creatinine 0.7 L Glucose 116 H POC Glucose 122 H 119 H Calcium Magnesium AST ALT Alkaline Phosphatase Total Creatine Kinase NT-Pro-B Natriuret Pep Albumin Urine WBC (Auto) Crossmatch 11/22/18 11/22/18 11/22/18 08:40 12:19 17:39 WBC RBC Hgb Hct MCH MCHC RDW Plt Count Lymph % (Auto) [place] % (Auto) Eos % (Auto) Lymph # [place] # Eos # Seg Neutrophils % Seg Neutrophils # PT INR POC ABG pH POC ABG pCO2 POC ABG pO2 VBG pH Sodium Potassium Chloride Carbon Dioxide BUN Creatinine Glucose POC Glucose 150 H 111 H 108 H Calcium Magnesium AST ALT Alkaline Phosphatase Total Creatine Kinase NT-Pro-B Natriuret Pep Albumin Urine WBC (Auto) Crossmatch 11/23/18 11/23/18 11/23/18 00:36 05:37 05:56 WBC RBC Hgb Hct MCH MCHC RDW Plt Count Lymph % (Auto) [place] % (Auto) Eos % (Auto) Lymph # [place] # Eos # Seg Neutrophils % Seg Neutrophils # PT INR POC ABG pH POC ABG pCO2 POC ABG pO2 VBG pH Sodium 136 L Potassium Chloride Carbon Dioxide BUN 30 H Creatinine 0.7 L Glucose 103 H POC Glucose 125 H 122 H Calcium Magnesium 2.50 H AST ALT Alkaline Phosphatase Total Creatine Kinase NT-Pro-B Natriuret Pep Albumin Urine WBC (Auto) Crossmatch 11/23/18 11/23/18 11/23/18 11:56 17:39 23:40 WBC RBC Hgb Hct MCH MCHC RDW Plt Count Lymph % (Auto) [place] % (Auto) Eos % (Auto) Lymph # [place] # Eos # Seg Neutrophils % Seg Neutrophils # PT INR POC ABG pH POC ABG pCO2 POC ABG pO2 VBG pH Sodium Potassium Chloride Carbon Dioxide BUN Creatinine Glucose POC Glucose 121 H 113 H 117 H Calcium Magnesium AST ALT Alkaline Phosphatase Total Creatine Kinase NT-Pro-B Natriuret Pep Albumin Urine WBC (Auto) Crossmatch 11/24/18 11/24/18 11/24/18 05:13 12:00 18:13 WBC RBC Hgb Hct MCH MCHC RDW Plt Count Lymph % (Auto) [place] % (Auto) Eos % (Auto) Lymph # [place] # Eos # Seg Neutrophils % Seg Neutrophils # PT INR POC ABG pH POC ABG pCO2 POC ABG pO2 VBG pH Sodium Potassium Chloride Carbon Dioxide BUN Creatinine Glucose POC Glucose 143 H 123 H 124 H Calcium Magnesium AST ALT Alkaline Phosphatase Total Creatine Kinase NT-Pro-B Natriuret Pep Albumin Urine WBC (Auto) Crossmatch 11/24/18 11/25/18 11/25/18 23:34 05:25 05:25 WBC RBC 2.48 L Hgb 6.8 L Hct 21.2 L MCH MCHC RDW 17.7 H Plt Count Lymph % (Auto) [place] % (Auto) Eos % (Auto) Lymph # [place] # Eos # Seg Neutrophils % Seg Neutrophils # PT INR POC ABG pH POC ABG pCO2 POC ABG pO2 VBG pH Sodium Potassium Chloride 108.8 H Carbon Dioxide BUN 30 H Creatinine 0.7 L Glucose 112 H POC Glucose 115 H Calcium Magnesium AST ALT Alkaline Phosphatase Total Creatine Kinase NT-Pro-B Natriuret Pep Albumin Urine WBC (Auto) Crossmatch 11/25/18 11/25/18 11/25/18 06:46 11:15 11:28 WBC RBC Hgb 7.4 L Hct 23.0 L MCH MCHC RDW Plt Count Lymph % (Auto) [place] % (Auto) Eos % (Auto) Lymph # [place] # Eos # Seg Neutrophils % Seg Neutrophils # PT INR POC ABG pH POC ABG pCO2 POC ABG pO2 VBG pH Sodium Potassium Chloride Carbon Dioxide BUN Creatinine Glucose POC Glucose 133 H 127 H Calcium Magnesium AST ALT Alkaline Phosphatase Total Creatine Kinase NT-Pro-B Natriuret Pep Albumin Urine WBC (Auto) Crossmatch 11/25/18 11/25/18 11/25/18 15:28 17:32 23:45 WBC RBC Hgb Hct MCH MCHC RDW Plt Count Lymph % (Auto) [place] % (Auto) Eos % (Auto) Lymph # [place] # Eos # Seg Neutrophils % Seg Neutrophils # PT INR POC ABG pH POC ABG pCO2 POC ABG pO2 VBG pH Sodium Potassium Chloride Carbon Dioxide BUN Creatinine Glucose POC Glucose 115 H 130 H Calcium Magnesium AST ALT Alkaline Phosphatase Total Creatine Kinase NT-Pro-B Natriuret Pep Albumin Urine WBC (Auto) Crossmatch See Detail 11/26/18 11/26/18 11/26/18 06:13 06:20 06:20 WBC RBC 2.76 L Hgb 7.7 L Hct 23.4 L MCH MCHC RDW 17.5 H Plt Count Lymph % (Auto) [place] % (Auto) Eos % (Auto) Lymph # [place] # Eos # Seg Neutrophils % Seg Neutrophils # PT INR POC ABG pH POC ABG pCO2 POC ABG pO2 VBG pH Sodium Potassium Chloride 109.9 H Carbon Dioxide BUN 30 H Creatinine 0.6 L Glucose 121 H POC Glucose 129 H Calcium Magnesium AST ALT Alkaline Phosphatase Total Creatine Kinase NT-Pro-B Natriuret Pep Albumin Urine WBC (Auto) Crossmatch 11/26/18 11/26/18 11/27/18 12:06 16:35 06:04 WBC RBC Hgb Hct MCH MCHC RDW Plt Count Lymph % (Auto) [place] % (Auto) Eos % (Auto) Lymph # [place] # Eos # Seg Neutrophils % Seg Neutrophils # PT INR POC ABG pH POC ABG pCO2 POC ABG pO2 VBG pH Sodium Potassium Chloride Carbon Dioxide BUN Creatinine Glucose POC Glucose 139 H 107 H 126 H Calcium Magnesium AST ALT Alkaline Phosphatase Total Creatine Kinase NT-Pro-B Natriuret Pep Albumin Urine WBC (Auto) Crossmatch 11/27/18 11/27/18 11/28/18 13:14 17:47 07:03 WBC RBC Hgb Hct MCH MCHC RDW Plt Count Lymph % (Auto) [place] % (Auto) Eos % (Auto) Lymph # [place] # Eos # Seg Neutrophils % Seg Neutrophils # PT INR POC ABG pH POC ABG pCO2 POC ABG pO2 VBG pH Sodium Potassium Chloride Carbon Dioxide BUN Creatinine Glucose POC Glucose 130 H 115 H 118 H Calcium Magnesium AST ALT Alkaline Phosphatase Total Creatine Kinase NT-Pro-B Natriuret Pep Albumin Urine WBC (Auto) Crossmatch 11/28/18 11/29/18 11/29/18 11:38 00:35 04:56 WBC RBC Hgb Hct MCH MCHC RDW Plt Count Lymph % (Auto) [place] % (Auto) Eos % (Auto) Lymph # [place] # Eos # Seg Neutrophils % Seg Neutrophils # PT INR POC ABG pH POC ABG pCO2 POC ABG pO2 VBG pH Sodium Potassium Chloride Carbon Dioxide BUN Creatinine Glucose POC Glucose 126 H 107 H Calcium Magnesium AST ALT Alkaline Phosphatase Total Creatine Kinase 50 L NT-Pro-B Natriuret Pep Albumin Urine WBC (Auto) Crossmatch 11/29/18 11/29/18 11/29/18 05:49 11:46 18:17 WBC RBC Hgb Hct MCH MCHC RDW Plt Count Lymph % (Auto) [place] % (Auto) Eos % (Auto) Lymph # [place] # Eos # Seg Neutrophils % Seg Neutrophils # PT INR POC ABG pH POC ABG pCO2 POC ABG pO2 VBG pH Sodium Potassium Chloride Carbon Dioxide BUN Creatinine Glucose POC Glucose 128 H 140 H 115 H Calcium Magnesium AST ALT Alkaline Phosphatase Total Creatine Kinase NT-Pro-B Natriuret Pep Albumin Urine WBC (Auto) Crossmatch 11/30/18 11/30/18 11/30/18 00:00 03:30 03:30 WBC RBC 2.97 L Hgb 8.1 L Hct 25.5 L MCH 27 L MCHC RDW 17.7 H Plt Count Lymph % (Auto) 9.2 L [place] % (Auto) 10.0 H Eos % (Auto) 4.6 H Lymph # 1.0 L [place] # 1.1 H Eos # 0.5 H Seg Neutrophils % 75.6 H Seg Neutrophils # 8.4 H PT INR POC ABG pH POC ABG pCO2 POC ABG pO2 VBG pH Sodium Potassium Chloride Carbon Dioxide BUN 31 H Creatinine 0.7 L Glucose POC Glucose 120 H Calcium Magnesium AST ALT Alkaline Phosphatase Total Creatine Kinase NT-Pro-B Natriuret Pep Albumin Urine WBC (Auto) Crossmatch 11/30/18 11/30/18 11/30/18 06:54 11:45 16:59 WBC RBC Hgb Hct MCH MCHC RDW Plt Count Lymph % (Auto) [place] % (Auto) Eos % (Auto) Lymph # [place] # Eos # Seg Neutrophils % Seg Neutrophils # PT INR POC ABG pH POC ABG pCO2 POC ABG pO2 VBG pH Sodium Potassium Chloride Carbon Dioxide BUN Creatinine Glucose POC Glucose 120 H 123 H 111 H Calcium Magnesium AST ALT Alkaline Phosphatase Total Creatine Kinase NT-Pro-B Natriuret Pep Albumin Urine WBC (Auto) Crossmatch 12/01/18 12/01/18 12/01/18 00:20 05:58 11:33 WBC RBC Hgb Hct MCH MCHC RDW Plt Count Lymph % (Auto) [place] % (Auto) Eos % (Auto) Lymph # [place] # Eos # Seg Neutrophils % Seg Neutrophils # PT INR POC ABG pH POC ABG pCO2 POC ABG pO2 VBG pH Sodium Potassium Chloride Carbon Dioxide BUN Creatinine Glucose POC Glucose 113 H 127 H 138 H Calcium Magnesium AST ALT Alkaline Phosphatase Total Creatine Kinase NT-Pro-B Natriuret Pep Albumin Urine WBC (Auto) Crossmatch 12/02/18 12/03/18 12/03/18 00:33 05:07 05:07 WBC RBC 2.93 L Hgb 8.2 L Hct 24.9 L MCH MCHC RDW 17.0 H Plt Count 470 H Lymph % (Auto) 9.3 L [place] % (Auto) 8.6 H Eos % (Auto) 5.4 H Lymph # 0.9 L [place] # Eos # 0.5 H Seg Neutrophils % 75.8 H Seg Neutrophils # PT INR POC ABG pH POC ABG pCO2 POC ABG pO2 VBG pH Sodium Potassium Chloride Carbon Dioxide BUN 30 H Creatinine 0.6 L Glucose 115 H POC Glucose 110 H Calcium Magnesium AST ALT Alkaline Phosphatase Total Creatine Kinase NT-Pro-B Natriuret Pep Albumin Urine WBC (Auto) Crossmatch 12/03/18 12/03/18 12/03/18 05:58 11:49 17:44 WBC RBC Hgb Hct MCH MCHC RDW Plt Count Lymph % (Auto) [place] % (Auto) Eos % (Auto) Lymph # [place] # Eos # Seg Neutrophils % Seg Neutrophils # PT INR POC ABG pH POC ABG pCO2 POC ABG pO2 VBG pH Sodium Potassium Chloride Carbon Dioxide BUN Creatinine Glucose POC Glucose 127 H 138 H 127 H Calcium Magnesium AST ALT Alkaline Phosphatase Total Creatine Kinase NT-Pro-B Natriuret Pep Albumin Urine WBC (Auto) Crossmatch 12/05/18 12/05/18 12/05/18 00:22 05:53 17:18 WBC RBC Hgb Hct MCH MCHC RDW Plt Count Lymph % (Auto) [place] % (Auto) Eos % (Auto) Lymph # [place] # Eos # Seg Neutrophils % Seg Neutrophils # PT INR POC ABG pH POC ABG pCO2 POC ABG pO2 VBG pH Sodium Potassium Chloride Carbon Dioxide BUN Creatinine Glucose POC Glucose 124 H 121 H 112 H Calcium Magnesium AST ALT Alkaline Phosphatase Total Creatine Kinase NT-Pro-B Natriuret Pep Albumin Urine WBC (Auto) Crossmatch 12/06/18 12/06/18 12/06/18 00:07 06:16 11:43 WBC RBC Hgb Hct MCH MCHC RDW Plt Count Lymph % (Auto) [place] % (Auto) Eos % (Auto) Lymph # [place] # Eos # Seg Neutrophils % Seg Neutrophils # PT INR POC ABG pH POC ABG pCO2 POC ABG pO2 VBG pH Sodium Potassium Chloride Carbon Dioxide BUN Creatinine Glucose POC Glucose 111 H 117 H 121 H Calcium Magnesium AST ALT Alkaline Phosphatase Total Creatine Kinase NT-Pro-B Natriuret Pep Albumin Urine WBC (Auto) Crossmatch 12/06/18 12/07/18 12/07/18 20:57 06:41 12:09 WBC RBC Hgb Hct MCH MCHC RDW Plt Count Lymph % (Auto) [place] % (Auto) Eos % (Auto) Lymph # [place] # Eos # Seg Neutrophils % Seg Neutrophils # PT INR POC ABG pH POC ABG pCO2 POC ABG pO2 VBG pH Sodium Potassium Chloride 107.2 H Carbon Dioxide BUN 27 H Creatinine 0.7 L Glucose POC Glucose 128 H 137 H Calcium Magnesium 2.50 H AST ALT Alkaline Phosphatase Total Creatine Kinase NT-Pro-B Natriuret Pep Albumin Urine WBC (Auto) Crossmatch 12/07/18 12/08/18 12/08/18 19:29 05:44 12:27 WBC RBC Hgb Hct MCH MCHC RDW Plt Count Lymph % (Auto) [place] % (Auto) Eos % (Auto) Lymph # [place] # Eos # Seg Neutrophils % Seg Neutrophils # PT INR POC ABG pH POC ABG pCO2 POC ABG pO2 VBG pH Sodium Potassium Chloride Carbon Dioxide BUN Creatinine Glucose POC Glucose 110 H 126 H 130 H Calcium Magnesium AST ALT Alkaline Phosphatase Total Creatine Kinase NT-Pro-B Natriuret Pep Albumin Urine WBC (Auto) Crossmatch 12/08/18 12/09/18 12/09/18 17:44 00:20 06:42 WBC RBC Hgb Hct MCH MCHC RDW Plt Count Lymph % (Auto) [place] % (Auto) Eos % (Auto) Lymph # [place] # Eos # Seg Neutrophils % Seg Neutrophils # PT INR POC ABG pH POC ABG pCO2 POC ABG pO2 VBG pH Sodium Potassium Chloride Carbon Dioxide BUN Creatinine Glucose POC Glucose 113 H 121 H 124 H Calcium Magnesium AST ALT Alkaline Phosphatase Total Creatine Kinase NT-Pro-B Natriuret Pep Albumin Urine WBC (Auto) Crossmatch 12/09/18 12/09/18 12/09/18 12:24 18:41 23:48 WBC RBC Hgb Hct MCH MCHC RDW Plt Count Lymph % (Auto) [place] % (Auto) Eos % (Auto) Lymph # [place] # Eos # Seg Neutrophils % Seg Neutrophils # PT INR POC ABG pH POC ABG pCO2 POC ABG pO2 VBG pH Sodium Potassium Chloride Carbon Dioxide BUN Creatinine Glucose POC Glucose 114 H 109 H 128 H Calcium Magnesium AST ALT Alkaline Phosphatase Total Creatine Kinase NT-Pro-B Natriuret Pep Albumin Urine WBC (Auto) Crossmatch 12/10/18 12/10/18 12/11/18 07:07 11:28 00:24 WBC RBC Hgb Hct MCH MCHC RDW Plt Count Lymph % (Auto) [place] % (Auto) Eos % (Auto) Lymph # [place] # Eos # Seg Neutrophils % Seg Neutrophils # PT INR POC ABG pH POC ABG pCO2 POC ABG pO2 VBG pH Sodium Potassium Chloride Carbon Dioxide BUN Creatinine Glucose POC Glucose 111 H 110 H 112 H Calcium Magnesium AST ALT Alkaline Phosphatase Total Creatine Kinase NT-Pro-B Natriuret Pep Albumin Urine WBC (Auto) Crossmatch 12/11/18 12/11/18 12/11/18 06:44 11:53 18:17 WBC RBC Hgb Hct MCH MCHC RDW Plt Count Lymph % (Auto) [place] % (Auto) Eos % (Auto) Lymph # [place] # Eos # Seg Neutrophils % Seg Neutrophils # PT INR POC ABG pH POC ABG pCO2 POC ABG pO2 VBG pH Sodium Potassium Chloride Carbon Dioxide BUN Creatinine Glucose POC Glucose 111 H 132 H 133 H Calcium Magnesium AST ALT Alkaline Phosphatase Total Creatine Kinase NT-Pro-B Natriuret Pep Albumin Urine WBC (Auto) Crossmatch 12/11/18 12/12/18 12/12/18 23:58 00:05 06:11 WBC RBC 2.85 L Hgb 7.8 L Hct 24.4 L MCH 27 L MCHC RDW 17.4 H Plt Count 459 H Lymph % (Auto) [place] % (Auto) 11.2 H Eos % (Auto) 5.4 H Lymph # [place] # 1.1 H Eos # 0.5 H Seg Neutrophils % Seg Neutrophils # PT INR POC ABG pH POC ABG pCO2 POC ABG pO2 VBG pH Sodium Potassium Chloride Carbon Dioxide BUN Creatinine Glucose POC Glucose 126 H 144 H Calcium Magnesium AST ALT Alkaline Phosphatase Total Creatine Kinase NT-Pro-B Natriuret Pep Albumin Urine WBC (Auto) Crossmatch 12/12/18 12/12/18 12/13/18 11:42 18:36 00:12 WBC RBC Hgb Hct MCH MCHC RDW Plt Count Lymph % (Auto) [place] % (Auto) Eos % (Auto) Lymph # [place] # Eos # Seg Neutrophils % Seg Neutrophils # PT INR POC ABG pH POC ABG pCO2 POC ABG pO2 VBG pH Sodium Potassium Chloride Carbon Dioxide BUN Creatinine Glucose POC Glucose 106 H 117 H 115 H Calcium Magnesium AST ALT Alkaline Phosphatase Total Creatine Kinase NT-Pro-B Natriuret Pep Albumin Urine WBC (Auto) Crossmatch 12/13/18 12/13/18 12/13/18 05:58 11:52 23:57 WBC RBC Hgb Hct MCH MCHC RDW Plt Count Lymph % (Auto) [place] % (Auto) Eos % (Auto) Lymph # [place] # Eos # Seg Neutrophils % Seg Neutrophils # PT INR POC ABG pH POC ABG pCO2 POC ABG pO2 VBG pH Sodium Potassium Chloride Carbon Dioxide BUN Creatinine Glucose POC Glucose 122 H 129 H 125 H Calcium Magnesium AST ALT Alkaline Phosphatase Total Creatine Kinase NT-Pro-B Natriuret Pep Albumin Urine WBC (Auto) Crossmatch 12/14/18 12/14/18 12/14/18 04:44 04:44 05:44 WBC RBC 2.56 L Hgb 7.2 L Hct 22.1 L MCH MCHC RDW 17.8 H Plt Count 473 H Lymph % (Auto) [place] % (Auto) 11.5 H Eos % (Auto) 4.8 H Lymph # [place] # 1.1 H Eos # Seg Neutrophils % Seg Neutrophils # PT INR POC ABG pH POC ABG pCO2 POC ABG pO2 VBG pH Sodium 151 H Potassium Chloride 116.7 H Carbon Dioxide BUN 40 H Creatinine Glucose 114 H POC Glucose 117 H Calcium Magnesium AST 80 H ALT 67 H Alkaline Phosphatase 247 H Total Creatine Kinase NT-Pro-B Natriuret Pep Albumin 1.9 L Urine WBC (Auto) Crossmatch 12/14/18 12/15/18 12/15/18 11:29 00:01 05:13 WBC RBC 2.68 L Hgb 7.4 L Hct 23.1 L MCH MCHC RDW 17.6 H Plt Count 454 H Lymph % (Auto) 13.3 L [place] % (Auto) 9.7 H Eos % (Auto) 6.9 H Lymph # [place] # Eos # 0.6 H Seg Neutrophils % Seg Neutrophils # PT INR POC ABG pH POC ABG pCO2 POC ABG pO2 VBG pH Sodium Potassium Chloride Carbon Dioxide BUN Creatinine Glucose POC Glucose 115 H 113 H Calcium Magnesium AST ALT Alkaline Phosphatase Total Creatine Kinase NT-Pro-B Natriuret Pep Albumin Urine WBC (Auto) Crossmatch 12/15/18 12/15/18 12/15/18 05:13 06:31 11:31 WBC RBC Hgb Hct MCH MCHC RDW Plt Count Lymph % (Auto) [place] % (Auto) Eos % (Auto) Lymph # [place] # Eos # Seg Neutrophils % Seg Neutrophils # PT INR POC ABG pH POC ABG pCO2 POC ABG pO2 VBG pH Sodium 151 H Potassium Chloride 116.4 H Carbon Dioxide BUN 39 H Creatinine Glucose 110 H POC Glucose 130 H 127 H Calcium Magnesium AST 85 H ALT 78 H Alkaline Phosphatase 255 H Total Creatine Kinase NT-Pro-B Natriuret Pep Albumin 1.9 L Urine WBC (Auto) Crossmatch 12/15/18 12/16/18 12/16/18 17:54 00:27 00:33 WBC RBC Hgb Hct MCH MCHC RDW Plt Count Lymph % (Auto) [place] % (Auto) Eos % (Auto) Lymph # [place] # Eos # Seg Neutrophils % Seg Neutrophils # PT INR POC ABG pH POC ABG pCO2 POC ABG pO2 VBG pH Sodium Potassium Chloride Carbon Dioxide BUN Creatinine Glucose POC Glucose 122 H 131 H Calcium Magnesium AST ALT Alkaline Phosphatase Total Creatine Kinase 50 L NT-Pro-B Natriuret Pep Albumin Urine WBC (Auto) Crossmatch 12/16/18 12/16/18 12/16/18 05:31 11:31 17:22 WBC RBC Hgb Hct MCH MCHC RDW Plt Count Lymph % (Auto) [place] % (Auto) Eos % (Auto) Lymph # [place] # Eos # Seg Neutrophils % Seg Neutrophils # PT INR POC ABG pH POC ABG pCO2 POC ABG pO2 VBG pH Sodium Potassium Chloride Carbon Dioxide BUN Creatinine Glucose POC Glucose 138 H 121 H 114 H Calcium Magnesium AST ALT Alkaline Phosphatase Total Creatine Kinase NT-Pro-B Natriuret Pep Albumin Urine WBC (Auto) Crossmatch 12/16/18 12/17/18 12/17/18 23:56 05:01 05:01 WBC 11.1 H RBC 2.96 L Hgb 7.9 L Hct 25.7 L MCH 27 L MCHC 31 L RDW 17.9 H Plt Count 479 H Lymph % (Auto) 11.3 L [place] % (Auto) 7.5 H Eos % (Auto) 4.5 H Lymph # [place] # Eos # 0.5 H Seg Neutrophils % 75.9 H Seg Neutrophils # 8.4 H PT INR POC ABG pH POC ABG pCO2 POC ABG pO2 VBG pH Sodium 155 H Potassium Chloride 121.2 H Carbon Dioxide BUN 41 H Creatinine Glucose 122 H POC Glucose 137 H Calcium Magnesium AST 97 H ALT 99 H Alkaline Phosphatase 279 H Total Creatine Kinase NT-Pro-B Natriuret Pep Albumin 1.8 L Urine WBC (Auto) Crossmatch 12/17/18 12/17/18 12/18/18 11:52 18:17 00:17 WBC RBC Hgb Hct MCH MCHC RDW Plt Count Lymph % (Auto) [place] % (Auto) Eos % (Auto) Lymph # [place] # Eos # Seg Neutrophils % Seg Neutrophils # PT INR POC ABG pH POC ABG pCO2 POC ABG pO2 VBG pH Sodium Potassium Chloride Carbon Dioxide BUN Creatinine Glucose POC Glucose 142 H 140 H 160 H Calcium Magnesium AST ALT Alkaline Phosphatase Total Creatine Kinase NT-Pro-B Natriuret Pep Albumin Urine WBC (Auto) Crossmatch 12/18/18 12/18/18 12/18/18 05:39 05:40 05:40 WBC 11.7 H RBC 2.76 L Hgb 7.5 L Hct 23.8 L MCH 27 L MCHC 31 L RDW 17.8 H Plt Count Lymph % (Auto) [place] % (Auto) Eos % (Auto) Lymph # [place] # Eos # Seg Neutrophils % Seg Neutrophils # PT INR POC ABG pH POC ABG pCO2 POC ABG pO2 VBG pH Sodium 153 H Potassium Chloride 117.6 H Carbon Dioxide BUN 48 H Creatinine Glucose 122 H POC Glucose 138 H Calcium Magnesium AST ALT Alkaline Phosphatase Total Creatine Kinase NT-Pro-B Natriuret Pep Albumin Urine WBC (Auto) Crossmatch 12/18/18 12/18/18 12/19/18 11:32 17:26 00:38 WBC RBC Hgb Hct MCH MCHC RDW Plt Count Lymph % (Auto) [place] % (Auto) Eos % (Auto) Lymph # [place] # Eos # Seg Neutrophils % Seg Neutrophils # PT INR POC ABG pH POC ABG pCO2 POC ABG pO2 VBG pH Sodium Potassium Chloride Carbon Dioxide BUN Creatinine Glucose POC Glucose 136 H 125 H 126 H Calcium Magnesium AST ALT Alkaline Phosphatase Total Creatine Kinase NT-Pro-B Natriuret Pep Albumin Urine WBC (Auto) Crossmatch 12/19/18 12/19/18 12/19/18 05:22 05:22 06:19 WBC 12.2 H RBC 2.86 L Hgb 7.6 L Hct 24.4 L MCH 27 L MCHC 31 L RDW 17.8 H Plt Count Lymph % (Auto) [place] % (Auto) Eos % (Auto) Lymph # [place] # Eos # Seg Neutrophils % Seg Neutrophils # PT INR POC ABG pH POC ABG pCO2 POC ABG pO2 VBG pH Sodium Potassium 5.9 H D Chloride 109.7 H Carbon Dioxide BUN 45 H Creatinine Glucose 107 H POC Glucose 136 H Calcium 8.3 L Magnesium AST ALT Alkaline Phosphatase Total Creatine Kinase NT-Pro-B Natriuret Pep Albumin Urine WBC (Auto) Crossmatch 12/19/18 12/19/18 12/19/18 08:23 11:44 17:09 WBC RBC Hgb Hct MCH MCHC RDW Plt Count Lymph % (Auto) [place] % (Auto) Eos % (Auto) Lymph # [place] # Eos # Seg Neutrophils % Seg Neutrophils # PT INR POC ABG pH POC ABG pCO2 POC ABG pO2 VBG pH Sodium Potassium Chloride 107.7 H Carbon Dioxide BUN 42 H Creatinine Glucose 118 H POC Glucose 130 H 118 H Calcium Magnesium AST ALT Alkaline Phosphatase Total Creatine Kinase NT-Pro-B Natriuret Pep Albumin Urine WBC (Auto) Crossmatch 12/19/18 12/20/18 12/20/18 23:59 05:52 06:24 WBC RBC Hgb Hct MCH MCHC RDW Plt Count Lymph % (Auto) [place] % (Auto) Eos % (Auto) Lymph # [place] # Eos # Seg Neutrophils % Seg Neutrophils # PT INR POC ABG pH POC ABG pCO2 POC ABG pO2 VBG pH Sodium Potassium 5.2 H Chloride 107.2 H Carbon Dioxide 21 L BUN 44 H Creatinine Glucose 118 H POC Glucose 150 H 138 H Calcium Magnesium AST ALT Alkaline Phosphatase Total Creatine Kinase NT-Pro-B Natriuret Pep Albumin Urine WBC (Auto) Crossmatch 12/20/18 11:34 WBC RBC Hgb Hct MCH MCHC RDW Plt Count Lymph % (Auto) [place] % (Auto) Eos % (Auto) Lymph # [place] # Eos # Seg Neutrophils % Seg Neutrophils # PT INR POC ABG pH POC ABG pCO2 POC ABG pO2 VBG pH Sodium Potassium Chloride Carbon Dioxide BUN Creatinine Glucose POC Glucose 134 H Calcium Magnesium AST ALT Alkaline Phosphatase Total Creatine Kinase NT-Pro-B Natriuret Pep Albumin Urine WBC (Auto) Crossmatch Allied health notes reviewed: nursing
[2018-12-21 06:00] LABS: Hematocrit 22.4 % (35.5-45.6); Hemoglobin 7.1 gm/dl (11.8-15.2); Mean Corpuscular HGB Conc 32 % (32-34); Mean Corpuscular Volume 84 fl (84-94); Platelet Count 412 K/mm3 (140-440); Red Blood Count 2.67 M/mm3 (3.65-5.03); Red Cell Distribution Width 17.5 % (13.2-15.2)
[2018-12-21] MEDS: D5W 1,000 ML IV SCH (06:18)
[2018-12-21] MEDS: SODIUM CHLORIDE FLUSH SYRINGE 10 ML IV SCH ×3 (06:20→22:30)
[2018-12-21 06:22] LABS: BUN/Creatinine Ratio 47; Blood Urea Nitrogen 42 mg/dL (9-20); Calcium 8.5 mg/dL (8.4-10.2); Hemolysis Index 2
--- NOTE | 2018-12-21 09:25 | Progress Note ---
Assessment and Plan Assessment and plan: 7 YO Male Nursing Home Facility Resident as [facility] with HTN, CVA, Obstructive Uropathy, Diastolic CHF, Contracture, Sacral Decubitus Ulcers, OR, DM, OA, Seizure Disorder, COPD, Dementia, BPH presents to ED for evaluation. Pt is stuporous and unable to provide history. Pt history taken from ED Staff, EMS, and SNF Staff. As per staff, the patient was found to have respiratory distress upon evaluation this morning. Pt found to have pulse oximetry in the 80's. EMS notified and patient subsequently transported to [facility] for further care and evaluation. Pt seen and evaluated in ED and found to have UTI, Sepsis, Encephalopathy as well as Acute Hypoxemic Respiratory Failure. Extensive discussion with family about patients poor prognosis surgery consulted, did debridment ID following, Pulmonary status improved Continue isolation care Chaudhary placed by Urology. 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 He needs to be on contact isolation. This cannot be cured with antibiotics. recommend palliative care/comfort care or hospice, family are not interested in that option. Completed daptomycin for 6 weeks completed 12/16/2018 Sacral pressure ulcer -infected. POA Debridement done by Dr Man Amputation recommended and the daughter refused Respiratory failure Supplemental oxygen, nebulizer therapy, mgt per pulmonology ANEMIA of chronic disease Transfused one unit PRBC hemoglobin is stable Transfuse as necessary Seizure Continue current therapy, seizure precautions. BPH Continue Chaudhary catherter Dementia supportive care Hyperkalemia. Resolved after kayexal;ate Calcium gluconate 1 g iv fever repeat blood cultures Re-consult ID Physician DVT prophylaxis Prophylactic lovenox POOR PROGNOSIS Disposition; pending SNF placement. Multible debridements done again 12/19/18 History Interval history: had multiple debridement 12/19/18 Fever of 102 Hospitalist Physical - Physical exam Narrative exam: Gen: Not in acute distress. lying in bed Head exam is unremarkable. No scleral icterus . Neck is without jugular venous distension, thyromegaly, or carotid bruits. Lungs are clear to auscultation. Cardiac exam reveals regular rate and Rhythm. First and second heart sounds normal. No murmurs, rubs or gallops. Abdominal exam reveals non tender, not distended,normal bowel sounds, no masses, Extremities contracted extremities. [employer]: Awake, contracted extremities Skin; multiple decubitus ulcers, including the sacrum , lower extremities bilateral. - Constitutional Vitals: Temp Pulse Resp BP Pulse Ox 98.5 F 105 H 20 137/70 95 12/21/18 07:57 12/21/18 07:59 12/21/18 07:57 12/21/18 07:57 12/21/18 07:59 General appearance: Present: no acute distress Results - Labs CBC & Chem 7: 12/21/18 05:37 12/21/18 05:37 Labs: Laboratory Last Values WBC 12.3 K/mm3 (4.5-11.0) H 12/21/18 05:37 RBC 2.67 M/mm3 (3.65-5.03) L 12/21/18 05:37 Hgb 7.1 gm/dl (11.8-15.2) L 12/21/18 05:37 Hct 22.4 % (35.5-45.6) L 12/21/18 05:37 MCV 84 fl (84-94) 12/21/18 05:37 MCH 27 pg (28-32) L 12/21/18 05:37 MCHC 32 % (32-34) 12/21/18 05:37 RDW 17.5 % (13.2-15.2) H 12/21/18 05:37 Plt Count 412 K/mm3 (140-440) 12/21/18 05:37 Lymph % (Auto) 11.3 % (13.4-35.0) L 12/17/18 05:01 [place] % (Auto) 7.5 % (0.0-7.3) H 12/17/18 05:01 Eos % (Auto) 4.5 % (0.0-4.3) H 12/17/18 05:01 Baso % (Auto) 0.8 % (0.0-1.8) 12/17/18 05:01 Lymph # 1.3 K/mm3 (1.2-5.4) 12/17/18 05:01 [place] # 0.8 K/mm3 (0.0-0.8) 12/17/18 05:01 Eos # 0.5 K/mm3 (0.0-0.4) H 12/17/18 05:01 Baso # 0.1 K/mm3 (0.0-0.1) 12/17/18 05:01 Seg Neutrophils % 75.9 % (40.0-70.0) H 12/17/18 05:01 Seg Neutrophils # 8.4 K/mm3 (1.8-7.7) H 12/17/18 05:01 PT 16.3 Sec. (12.2-14.9) H 11/01/18 14:50 INR 1.35 (0.87-1.13) H 11/01/18 14:50 POC ABG pH 7.494 (7.35-7.45) H 11/01/18 15:27 POC ABG pCO2 34.5 (35-45) L 11/01/18 15:27 POC ABG pO2 139 (80-105) H 11/01/18 15:27 POC ABG HCO3 26.5 (22-26 mml/L) 11/01/18 15:27 POC ABG Total CO2 28 (23-27mmol/L) 11/01/18 15:27 POC ABG O2 Sat 99 11/01/18 15:27 POC ABG Base Excess 3 ((-2) - (+3)mmol/L) 11/01/18 15:27 VBG pH 7.499 (7.320-7.420) H 11/01/18 14:50 50 % 11/01/18 15:27 Sodium 138 mmol/L (137-145) 12/21/18 05:37 Potassium 4.1 mmol/L (3.6-5.0) D 12/21/18 05:37 Chloride 102.8 mmol/L (98-107) 12/21/18 05:37 Carbon Dioxide 22 mmol/L (22-30) 12/21/18 05:37 17 mmol/L 12/21/18 05:37 BUN 42 mg/dL (9-20) H 12/21/18 05:37 0.9 mg/dL (0.8-1.5) 12/21/18 05:37 Estimated GFR > 60 ml/min 12/21/18 05:37 47 % 12/21/18 05:37 Glucose 127 mg/dL (75-100) H 12/21/18 05:37 POC Glucose 152 (70-105) H 12/21/18 06:58 Lactic Acid 1.80 mmol/L (0.7-2.0) 11/01/18 14:50 Calcium 8.5 mg/dL (8.4-10.2) 12/21/18 05:37 Phosphorus 2.90 mg/dL (2.5-4.5) 11/22/18 09:43 Magnesium 2.50 mg/dL (1.7-2.3) H 12/06/18 20:57 0.20 mg/dL (0.1-1.2) 12/17/18 05:01 AST 97 units/L (5-40) H 12/17/18 05:01 ALT 99 units/L (7-56) H 12/17/18 05:01 279 units/L (35-129) H 12/17/18 05:01 50 units/L (55-170) L 12/16/18 00:27 NT-Pro-B Natriuret Pep 6776 pg/mL (0-900) H 11/01/18 14:50 7.7 g/dL (6.3-8.2) 12/17/18 05:01 1.8 g/dL (3.9-5) L 12/17/18 05:01 0.3 % 12/17/18 05:01 14 units/L (13-60) 11/25/18 15:07 Yellow (Yellow) 11/01/18 15:57 Turbid (Clear) 11/01/18 15:57 6.0 (5.0-7.0) 11/01/18 15:57 Ur Specific [place] 1.016 (1.003-1.030) 11/01/18 15:57 100 mg/dl mg/dL (Negative) 11/01/18 15:57 Neg mg/dL (Negative) 11/01/18 15:57 Neg mg/dL (Negative) 11/01/18 15:57 Neg (Negative) 11/01/18 15:57 Neg (Negative) 11/01/18 15:57 Neg (Negative) 11/01/18 15:57 < 2.0 mg/dL (<2.0) 11/01/18 15:57 Ur Leukocyte Esterase Mod (Negative) 11/01/18 15:57 > 182.0 /HPF (0.0-6.0) H 11/01/18 15:57 40.0 /HPF (0.0-6.0) 11/01/18 15:57 U Epithel Cells (Auto) 8.0 /HPF (0-13.0) 11/01/18 15:57 3+ /HPF 11/01/18 15:57 3+ /HPF 11/01/18 15:57 Random Vancomycin 13.9 ug/mL (0-40.0) 11/02/18 05:05 Blood Type O POSITIVE 11/25/18 15:28 Antibody Screen Negative 11/25/18 15:28 Crossmatch See Detail 11/25/18 15:28 Active Medications - Current Medications Current Medications: Generic Name Dose Route Start Last Admin Trade Name Freq PRN Reason Stop Dose Admin Acetaminophen 650 mg 12/11/18 15:21 12/19/18 22:10 Tylenol FEEDTUBE 650 mg Q6H PRN Administration Pain, Mild (1-3) Albuterol 2.5 mg 11/01/18 17:15 Proventil IH Q3HRT PRN Shortness Of Breath Lipase/Protease/Amylase 1 each 12/16/18 13:57 Pancreaze 10,500 Unit FEEDTUBE PRN PRN For Clogged Feeding Tube Ascorbic Acid 500 mg 11/01/18 22:00 12/20/18 23:57 Vitamin C FEEDTUBE 500 mg BID NORA Administration Atorvastatin Calcium 40 mg 11/01/18 22:00 12/20/18 23:57 Lipitor FEEDTUBE 40 mg QHS NORA Administration Carvedilol 6.25 mg 11/08/18 13:00 12/20/18 23:56 Coreg PO 6.25 mg BID NORA Administration Clonidine HCl 0.2 mg 11/05/18 17:18 12/17/18 17:31 Catapres-Tts Patch TD 0.2 mg Tu NORA Administration Enoxaparin Sodium 40 mg 11/02/18 10:00 12/20/18 09:13 Lovenox SUB-Q 40 mg QDAY@1000 NORA Administration Hydralazine HCl 10 mg 11/25/18 22:00 12/20/18 23:55 Apresoline PO Not Given Q12HR NORA Dextrose 1,000 mls @ 75 mls/hr 12/16/18 09:30 12/21/18 06:18 D5w IV 75 mls/hr DIRECT NORA Administration Levetiracetam 500 mg 11/01/18 22:00 12/20/18 23:56 Keppra FEEDTUBE 500 mg BID NORA Administration Mineral Oil 133 ml 12/10/18 14:55 Fleet Mineral Oil ID QDAY PRN Constipation Morphine Sulfate 2 mg 11/01/18 17:15 12/19/18 12:09 Morphine IV 2 mg Q4H PRN Administration Pain, Moderate (4-6) Multivitamins 5 ml 11/02/18 10:00 12/20/18 09:15 Centrum Liq FEEDTUBE 5 ml QDAY NORA Administration Polyethylene Glycol 17 gm 12/10/18 15:00 12/20/18 09:19 Miralax 3350 FEEDTUBE Not Given QDAY NORA Senna 8.6 mg 12/10/18 14:56 [place]ot FEEDTUBE Q12H PRN Laxative Effect Simple Syrup 15 ml 12/16/18 13:57 Simple Syrup FEEDTUBE PRN PRN Hypoglycemia Simple Syrup 30 ml 12/16/18 13:57 Simple Syrup FEEDTUBE PRN PRN Hypoglycemia Sodium Bicarbonate 325 mg 12/16/18 13:57 Sodium Bicarbonate FEEDTUBE PRN PRN For Clogged Feeding Tube Sodium Biphosphate/Sodium Phosphate 133 ml 12/10/18 14:55 Fleet ID QDAY PRN Bowel Movement Sodium Chloride 10 ml 11/01/18 22:00 12/21/18 06:20 Sodium Chloride Flush Syringe 10 Ml IV 10 ml BID NORA Administration Sodium Chloride 10 ml 11/01/18 17:15 11/23/18 04:05 Sodium Chloride Flush Syringe 10 Ml IV 10 ml PRN PRN Administration LINE FLUSH Zinc Sulfate 220 mg 11/02/18 10:00 12/20/18 09:18 Zinc Sulfate PO 220 mg DAILY NORA Administration Nutrition/Malnutrition Assess - Dietary Evaluation Nutrition/Malnutrition Findings: Nutrition Notes Start: 11/04/18 16:00 Freq: Status: Active Protocol: Document 12/18/18 17:40 RM (Rec: 12/18/18 17:45 RM [id number]) Nutrition Notes Initial or Follow up Reassessment Current Diagnosis COPD,Diabetes,Sepsis, Hypertension,Heart Failure, Stroke Other Pertinent Diagnosis Infected sacral decubitus, Dementia, BPH, UTI Current Diet TF - Glucerna 1.2 at 70ml/hr + Mario BID Labs/Tests Na 153 Pertinent Medications Reviewed Height 5 ft 8 in Weight 62.1 kg [place] Body Weight (kg) 70.00 BMI 20.8 Subjective/Other Information Observed Glucerna infusing at goal rate. Nurse stated that she plans to give pt Mario and that pt is tolerating TF. Percent of energy/protein needs met: 95%/100% Burn Absent Trauma Absent #1 Nutrition Diagnosis Inadequate oral intake Diagnosis Progress(for reassessment Continues documentation) Is patient on ventilator? No Is Patient Ambulatory and/or Out of Bed No REE-([facility]-confined to bed) 1638.480 Kcal/Kg value to use for calculation 34 Approximate Energy Requirements Using 2111 kcal/Kg Calculation Used for Recommendations Kcal/kg Additional Notes Pro needs 1.5-2g/k-124g/ day Fluid needs 1ml/kcal Nutrition Intervention Nutrition Support: Glucerna 1.2 at 70ml/hr Water flush of 200 mls q 4 hrs until hypernatremia resolves. Water flush of 100 mls q 4 hrs once hypernatremia resolves. Kcal 2,016 Protein (gm) 101 Carbohydrates (gm) 192 Fat (gm) 101 Fluid (mL) 1,352 Add Supplement/Snack (indicate name/kcal Mario BID /protein ) Provides kCal: 190 Provides Protein (gm) 5 Goal #1 TF tolerance Goal #2 TF to continue to meet at least 75% of calorie and protein needs Follow-Up By: 12/21/18 Additional Comments Follow for TF tolerance, Mario administration
[2018-12-21] MEDS: ZINC SULFATE PO SCH (10:34)
[2018-12-21] MEDS: Centrum Liq FEEDTUBE SCH (10:34)
[2018-12-21] MEDS: MIRALAX 3350 FEEDTUBE SCH (10:35)
[2018-12-21] MEDS: LOVENOX SUB-Q SCH (10:35)
[2018-12-21] MEDS: KEPPRA FEEDTUBE SCH ×2 (10:35→22:30)
[2018-12-21] MEDS: COREG PO SCH ×2 (10:36→22:30)
[2018-12-21] MEDS: APRESOLINE PO SCH (10:36)
[2018-12-21] MEDS: VITAMIN C FEEDTUBE SCH (10:36)
--- NOTE | 2018-12-21 11:10 | XRay Report ---
CHEST 1 VIEW INDICATION / CLINICAL INFORMATION: fever. COMPARISON: 11/01/2018 chest radiograph FINDINGS: SUPPORT DEVICES: Central venous catheter tip projects over the lower SVC in satisfactory position. HEART / MEDIASTINUM: Unchanged cardiomegaly. LUNGS / PLEURA: No parenchymal consolidation. No definite pleural fluid. No pneumothorax within limit ations imposed by supine positioning. ADDITIONAL FINDINGS: No significant additional findings. IMPRESSION: 1. No acute findings. Signer Name: Marc Sands MD Signed: 12/21/2018 11:05 AM Workstation Name: [id number]
--- NOTE | 2018-12-21 14:58 | Progress Note ---
Assessment and Plan Patient is weak and contracted and has multiple pressure wounds. Patients general medical condition poor and unchanged. Patient awake. Not follow commands. On room air at this time. No acute respiratory distress. O2 sat 92%. Patient running low grade temp. Has mild leukocytosis. Antibiotics as per infectious diseases. - Patient Problems (1) Respiratory failure Current Visit: Yes Status: Acute Qualifiers: Chronicity: acute Respiratory failure complication: hypoxia Qualified Code(s): J96.01 - Acute respiratory failure with hypoxia Plan to address problem: Continue O2 supplementation 2 L via nasal canula. Albuterol and Atrovent treatment q6h. Continue SQ Levonox. Recommend GI prophylexis. (2) Seizure Current Visit: Yes Status: Acute Plan to address problem: Management as per neurologist. (3) Sepsis Current Visit: Yes Status: Acute Plan to address problem: Patient treated with Daptomycine . Antibiotic management as per infectious diseases. (4) UTI (urinary tract infection) Current Visit: Yes Status: Acute Qualifiers: Encounter type: initial encounter Plan to address problem: Patient is treated with Daptomycine . Antibiotic management as per infectious diseases. (5) ARF (acute renal failure) with tubular necrosis Current Visit: No Status: Acute Plan to address problem: Management as per Nephrology. Subjective Date of service: 12/21/18 Principal diagnosis: Severe Sepsis; Ac. Hypoxemic Resp failure; Anemia; Seizure; UTI; BPH Interval history: Patient is weak and contracted and has multiple pressure wounds. Patients general medical condition poor and unchanged. Patient awake. Not follow commands. On room air at this time. No acute respiratory distress. O2 sat 92%. Patient running low grade temp. Has mild l eukocytosis. Antibiotics as per infectious diseases. Objective Vital Signs - 12hr 12/21/18 12/21/18 12/21/18 03:11 07:57 07:59 Temperature 99.1 F 98.5 F Pulse Rate 102 H 105 H Respiratory 18 20 Rate Blood Pressure 105/68 137/70 O2 Sat by Pulse 97 95 Oximetry 12/21/18 13:49 Temperature 99.7 F H Pulse Rate 105 H Respiratory 20 Rate Blood Pressure 104/64 O2 Sat by Pulse 92 Oximetry Constitutional: no acute distress, asleep, appears uncomfortable Eyes: non-icteric ENT: oropharynx moist Neck: no lymphadenopathy, no JVD, other (mild stiffness / contracture) Effort: normal Ascultation: Bilateral: diminished breath sounds, rhonchi Percussion: Bilateral: not dull Cardiovascular: regular rate and rhythm Gastrointestinal: normoactive bowel sounds, soft, non-tender, non-distended Integumentary: rash Extremities: no cyanosis, no edema, pulses normal, other (Patient has pressure ulcer at multiple areas, including sacral area.) Neurologic: non-focal exam, pupils equal and round, CN II-XII normal, other (+ contractures) Psychiatric: mood appropriate, affect normal CBC and BMP: 12/21/18 05:37 12/21/18 05:37 ABG, PT/INR, D-dimer: ABG POC ABG pH 7.494 (7.35-7.45) H 11/01/18 15:27 POC ABG pCO2 34.5 (35-45) L 11/01/18 15:27 POC ABG pO2 139 (80-105) H 11/01/18 15:27 POC ABG HCO3 26.5 (22-26 mml/L) 11/01/18 15:27 POC ABG Total CO2 28 (23-27mmol/L) 11/01/18 15:27 POC ABG O2 Sat 99 11/01/18 15:27 PT/INR, D-dimer PT 16.3 Sec. (12.2-14.9) H 11/01/18 14:50 INR 1.35 (0.87-1.13) H 11/01/18 14:50 Abnormal lab findings: Abnormal Labs 11/01/18 11/01/18 11/01/18 14:50 14:50 14:50 WBC 15.3 H RBC 2.76 L Hgb 7.9 L Hct 23.5 L MCH MCHC RDW 18.3 H Plt Count 567 H Lymph % (Auto) 6.5 L [place] % (Auto) 8.5 H Eos % (Auto) Lymph # 1.0 L [place] # 1.3 H Eos # Seg Neutrophils % 83.4 H Seg Neutrophils # 12.7 H PT 16.3 H INR 1.35 H POC ABG pH POC ABG pCO2 POC ABG pO2 VBG pH Sodium Potassium Chloride Carbon Dioxide BUN 49 H Creatinine Glucose 132 H POC Glucose Calcium Magnesium AST 90 H ALT 77 H Alkaline Phosphatase 350 H Total Creatine Kinase NT-Pro-B Natriuret Pep Albumin 1.6 L Urine WBC (Auto) Crossmatch 11/01/18 11/01/18 11/01/18 14:50 14:50 15:27 WBC RBC Hgb Hct MCH MCHC RDW Plt Count Lymph % (Auto) [place] % (Auto) Eos % (Auto) Lymph # [place] # Eos # Seg Neutrophils % Seg Neutrophils # PT INR POC ABG pH 7.494 H POC ABG pCO2 34.5 L POC ABG pO2 139 H VBG pH 7.499 H Sodium Potassium Chloride Carbon Dioxide BUN Creatinine Glucose POC Glucose Calcium Magnesium AST ALT Alkaline Phosphatase Total Creatine Kinase NT-Pro-B Natriuret Pep 6776 H Albumin Urine WBC (Auto) Crossmatch 11/01/18 11/03/18 11/03/18 15:57 03:41 03:41 WBC 12.8 H RBC 2.55 L Hgb 6.9 L Hct 22.2 L MCH 27 L MCHC 31 L RDW 17.9 H Plt Count 519 H Lymph % (Auto) [place] % (Auto) Eos % (Auto) Lymph # [place] # Eos # Seg Neutrophils % Seg Neutrophils # PT INR POC ABG pH POC ABG pCO2 POC ABG pO2 VBG pH Sodium 147 H Potassium Chloride 110.3 H Carbon Dioxide BUN 55 H Creatinine Glucose POC Glucose Calcium Magnesium AST ALT Alkaline Phosphatase Total Creatine Kinase NT-Pro-B Natriuret Pep Albumin Urine WBC (Auto) > 182.0 H Crossmatch 11/03/18 11/04/18 11/04/18 12:51 05:12 05:12 WBC 11.5 H RBC 2.94 L Hgb 8.3 L Hct 25.3 L MCH MCHC RDW 17.3 H Plt Count 514 H Lymph % (Auto) [place] % (Auto) Eos % (Auto) Lymph # [place] # Eos # Seg Neutrophils % Seg Neutrophils # PT INR POC ABG pH POC ABG pCO2 POC ABG pO2 VBG pH Sodium 147 H Potassium Chloride 112.4 H Carbon Dioxide BUN 52 H Creatinine Glucose POC Glucose Calcium Magnesium AST ALT Alkaline Phosphatase Total Creatine Kinase NT-Pro-B Natriuret Pep Albumin Urine WBC (Auto) Crossmatch See Detail 11/05/18 11/05/18 11/06/18 04:50 04:50 05:42 WBC RBC 3.03 L 2.80 L Hgb 8.7 L 7.9 L Hct 26.6 L 24.7 L MCH MCHC RDW 17.1 H 17.0 H Plt Count 502 H 478 H Lymph % (Auto) 10.4 L [place] % (Auto) 8.6 H Eos % (Auto) 4.7 H Lymph # 1.0 L [place] # Eos # 0.5 H Seg Neutrophils % 75.6 H Seg Neutrophils # PT INR POC ABG pH POC ABG pCO2 POC ABG pO2 VBG pH Sodium 149 H Potassium Chloride 114.4 H Carbon Dioxide 21 L BUN 50 H Creatinine Glucose 108 H POC Glucose Calcium Magnesium AST ALT Alkaline Phosphatase Total Creatine Kinase NT-Pro-B Natriuret Pep Albumin Urine WBC (Auto) Crossmatch 11/06/18 11/11/18 11/12/18 05:42 18:54 00:22 WBC RBC Hgb Hct MCH MCHC RDW Plt Count Lymph % (Auto) [place] % (Auto) Eos % (Auto) Lymph # [place] # Eos # Seg Neutrophils % Seg Neutrophils # PT INR POC ABG pH POC ABG pCO2 POC ABG pO2 VBG pH Sodium 149 H Potassium Chloride 113.4 H Carbon Dioxide BUN 50 H Creatinine Glucose 121 H POC Glucose 114 H 123 H Calcium Magnesium AST ALT Alkaline Phosphatase Total Creatine Kinase NT-Pro-B Natriuret Pep Albumin Urine WBC (Auto) Crossmatch 11/12/18 11/12/18 11/13/18 06:49 11:35 06:34 WBC RBC Hgb Hct MCH MCHC RDW Plt Count Lymph % (Auto) [place] % (Auto) Eos % (Auto) Lymph # [place] # Eos # Seg Neutrophils % Seg Neutrophils # PT INR POC ABG pH POC ABG pCO2 POC ABG pO2 VBG pH Sodium Potassium Chloride Carbon Dioxide BUN Creatinine Glucose POC Glucose 129 H 123 H 128 H Calcium Magnesium AST ALT Alkaline Phosphatase Total Creatine Kinase NT-Pro-B Natriuret Pep Albumin Urine WBC (Auto) Crossmatch 11/13/18 11/13/18 11/13/18 09:26 09:26 15:13 WBC RBC 3.08 L Hgb 8.6 L Hct 27.3 L MCH MCHC 31 L RDW 18.3 H Plt Count 504 H Lymph % (Auto) 11.7 L [place] % (Auto) 7.5 H Eos % (Auto) 7.0 H Lymph # [place] # Eos # 0.7 H Seg Neutrophils % 72.9 H Seg Neutrophils # PT INR POC ABG pH POC ABG pCO2 POC ABG pO2 VBG pH Sodium 153 H Potassium 6.3 H* 5.8 H Chloride 122.3 H Carbon Dioxide 21 L BUN 38 H Creatinine Glucose 112 H POC Glucose Calcium Magnesium AST ALT Alkaline Phosphatase Total Creatine Kinase NT-Pro-B Natriuret Pep Albumin Urine WBC (Auto) Crossmatch 11/13/18 11/13/18 11/14/18 22:10 23:45 13:17 WBC RBC Hgb Hct MCH MCHC RDW Plt Count Lymph % (Auto) [place] % (Auto) Eos % (Auto) Lymph # [place] # Eos # Seg Neutrophils % Seg Neutrophils # PT INR POC ABG pH POC ABG pCO2 POC ABG pO2 VBG pH Sodium 155 H Potassium 5.3 H Chloride 122.3 H Carbon Dioxide BUN 35 H Creatinine Glucose 113 H POC Glucose 111 H 142 H Calcium Magnesium AST ALT Alkaline Phosphatase Total Creatine Kinase NT-Pro-B Natriuret Pep Albumin Urine WBC (Auto) Crossmatch 11/14/18 11/15/18 11/15/18 19:08 00:31 06:45 WBC RBC Hgb Hct MCH MCHC RDW Plt Count Lymph % (Auto) [place] % (Auto) Eos % (Auto) Lymph # [place] # Eos # Seg Neutrophils % Seg Neutrophils # PT INR POC ABG pH POC ABG pCO2 POC ABG pO2 VBG pH Sodium Potassium Chloride Carbon Dioxide BUN Creatinine Glucose POC Glucose 116 H 125 H 131 H Calcium Magnesium AST ALT Alkaline Phosphatase Total Creatine Kinase NT-Pro-B Natriuret Pep Albumin Urine WBC (Auto) Crossmatch 11/15/18 11/15/18 11/15/18 07:13 07:13 19:03 WBC 13.2 H RBC 2.81 L Hgb 7.8 L Hct 24.5 L MCH MCHC RDW 18.2 H Plt Count 454 H Lymph % (Auto) 9.0 L [place] % (Auto) 7.5 H Eos % (Auto) Lymph # [place] # 1.0 H Eos # 0.5 H Seg Neutrophils % 78.8 H Seg Neutrophils # 10.4 H PT INR POC ABG pH POC ABG pCO2 POC ABG pO2 VBG pH Sodium 149 H Potassium 5.2 H Chloride 117.2 H Carbon Dioxide BUN 38 H Creatinine Glucose 114 H POC Glucose 141 H Calcium Magnesium AST ALT Alkaline Phosphatase Total Creatine Kinase NT-Pro-B Natriuret Pep Albumin Urine WBC (Auto) Crossmatch 11/16/18 11/16/18 11/16/18 01:15 01:15 06:45 WBC RBC Hgb Hct MCH MCHC RDW Plt Count Lymph % (Auto) [place] % (Auto) Eos % (Auto) Lymph # [place] # Eos # Seg Neutrophils % Seg Neutrophils # PT INR POC ABG pH POC ABG pCO2 POC ABG pO2 VBG pH Sodium Potassium 5.3 H Chloride Carbon Dioxide BUN Creatinine Glucose POC Glucose 129 H Calcium Magnesium 2.60 H AST ALT Alkaline Phosphatase Total Creatine Kinase NT-Pro-B Natriuret Pep Albumin Urine WBC (Auto) Crossmatch 11/16/18 11/16/18 11/17/18 13:20 18:02 00:16 WBC RBC Hgb Hct MCH MCHC RDW Plt Count Lymph % (Auto) [place] % (Auto) Eos % (Auto) Lymph # [place] # Eos # Seg Neutrophils % Seg Neutrophils # PT INR POC ABG pH POC ABG pCO2 POC ABG pO2 VBG pH Sodium Potassium Chloride Carbon Dioxide BUN Creatinine Glucose POC Glucose 130 H 127 H 120 H Calcium Magnesium AST ALT Alkaline Phosphatase Total Creatine Kinase NT-Pro-B Natriuret Pep Albumin Urine WBC (Auto) Crossmatch 11/17/18 11/17/18 11/17/18 05:48 08:02 08:02 WBC RBC Hgb 7.5 L Hct 23.5 L MCH MCHC RDW Plt Count Lymph % (Auto) [place] % (Auto) Eos % (Auto) Lymph # [place] # Eos # Seg Neutrophils % Seg Neutrophils # PT INR POC ABG pH POC ABG pCO2 POC ABG pO2 VBG pH Sodium Potassium Chloride 110.1 H Carbon Dioxide 21 L BUN 38 H Creatinine Glucose 121 H POC Glucose 130 H Calcium Magnesium AST ALT Alkaline Phosphatase Total Creatine Kinase NT-Pro-B Natriuret Pep Albumin Urine WBC (Auto) Crossmatch 11/17/18 11/17/18 11/18/18 12:17 16:48 06:00 WBC RBC Hgb Hct MCH MCHC RDW Plt Count Lymph % (Auto) [place] % (Auto) Eos % (Auto) Lymph # [place] # Eos # Seg Neutrophils % Seg Neutrophils # PT INR POC ABG pH POC ABG pCO2 POC ABG pO2 VBG pH Sodium Potassium Chloride Carbon Dioxide BUN Creatinine Glucose POC Glucose 140 H 120 H 137 H Calcium Magnesium AST ALT Alkaline Phosphatase Total Creatine Kinase NT-Pro-B Natriuret Pep Albumin Urine WBC (Auto) Crossmatch 11/19/18 11/19/18 11/19/18 00:20 05:35 06:11 WBC RBC Hgb Hct MCH MCHC RDW Plt Count Lymph % (Auto) [place] % (Auto) Eos % (Auto) Lymph # [place] # Eos # Seg Neutrophils % Seg Neutrophils # PT INR POC ABG pH POC ABG pCO2 POC ABG pO2 VBG pH Sodium Potassium Chloride Carbon Dioxide BUN Creatinine Glucose POC Glucose 111 H 126 H Calcium Magnesium AST ALT Alkaline Phosphatase Total Creatine Kinase 53 L NT-Pro-B Natriuret Pep Albumin Urine WBC (Auto) Crossmatch 11/19/18 11/19/18 11/20/18 11:37 23:43 06:52 WBC RBC Hgb Hct MCH MCHC RDW Plt Count Lymph % (Auto) [place] % (Auto) Eos % (Auto) Lymph # [place] # Eos # Seg Neutrophils % Seg Neutrophils # PT INR POC ABG pH POC ABG pCO2 POC ABG pO2 VBG pH Sodium Potassium Chloride Carbon Dioxide BUN Creatinine Glucose POC Glucose 139 H 145 H 125 H Calcium Magnesium AST ALT Alkaline Phosphatase Total Creatine Kinase NT-Pro-B Natriuret Pep Albumin Urine WBC (Auto) Crossmatch 11/20/18 11/20/18 11/20/18 09:55 09:55 11:49 WBC RBC 3.04 L Hgb 8.4 L Hct 26.1 L MCH MCHC RDW 17.5 H Plt Count Lymph % (Auto) [place] % (Auto) Eos % (Auto) Lymph # [place] # Eos # Seg Neutrophils % Seg Neutrophils # PT INR POC ABG pH POC ABG pCO2 POC ABG pO2 VBG pH Sodium 149 H Potassium Chloride 114.5 H Carbon Dioxide 21 L BUN 35 H Creatinine Glucose 127 H POC Glucose 150 H Calcium Magnesium AST ALT Alkaline Phosphatase Total Creatine Kinase NT-Pro-B Natriuret Pep Albumin Urine WBC (Auto) Crossmatch 11/20/18 11/20/18 11/21/18 18:02 23:49 06:14 WBC RBC Hgb Hct MCH MCHC RDW Plt Count Lymph % (Auto) [place] % (Auto) Eos % (Auto) Lymph # [place] # Eos # Seg Neutrophils % Seg Neutrophils # PT INR POC ABG pH POC ABG pCO2 POC ABG pO2 VBG pH Sodium Potassium Chloride Carbon Dioxide BUN Creatinine Glucose POC Glucose 131 H 137 H 133 H Calcium Magnesium AST ALT Alkaline Phosphatase Total Creatine Kinase NT-Pro-B Natriuret Pep Albumin Urine WBC (Auto) Crossmatch 11/21/18 11/21/18 11/21/18 10:00 12:09 18:04 WBC RBC Hgb Hct MCH MCHC RDW Plt Count Lymph % (Auto) [place] % (Auto) Eos % (Auto) Lymph # [place] # Eos # Seg Neutrophils % Seg Neutrophils # PT INR POC ABG pH POC ABG pCO2 POC ABG pO2 VBG pH Sodium Potassium Chloride 110.6 H Carbon Dioxide BUN 31 H Creatinine Glucose 119 H POC Glucose 116 H 126 H Calcium Magnesium AST ALT Alkaline Phosphatase Total Creatine Kinase NT-Pro-B Natriuret Pep Albumin Urine WBC (Auto) Crossmatch 11/22/18 11/22/18 11/22/18 00:14 05:47 06:23 WBC RBC Hgb Hct MCH MCHC RDW Plt Count Lymph % (Auto) [place] % (Auto) Eos % (Auto) Lymph # [place] # Eos # Seg Neutrophils % Seg Neutrophils # PT INR POC ABG pH POC ABG pCO2 POC ABG pO2 VBG pH Sodium Potassium Chloride 107.6 H Carbon Dioxide BUN 32 H Creatinine 0.7 L Glucose 116 H POC Glucose 122 H 119 H Calcium Magnesium AST ALT Alkaline Phosphatase Total Creatine Kinase NT-Pro-B Natriuret Pep Albumin Urine WBC (Auto) Crossmatch 11/22/18 11/22/18 11/22/18 08:40 12:19 17:39 WBC RBC Hgb Hct MCH MCHC RDW Plt Count Lymph % (Auto) [place] % (Auto) Eos % (Auto) Lymph # [place] # Eos # Seg Neutrophils % Seg Neutrophils # PT INR POC ABG pH POC ABG pCO2 POC ABG pO2 VBG pH Sodium Potassium Chloride Carbon Dioxide BUN Creatinine Glucose POC Glucose 150 H 111 H 108 H Calcium Magnesium AST ALT Alkaline Phosphatase Total Creatine Kinase NT-Pro-B Natriuret Pep Albumin Urine WBC (Auto) Crossmatch 11/23/18 11/23/18 11/23/18 00:36 05:37 05:56 WBC RBC Hgb Hct MCH MCHC RDW Plt Count Lymph % (Auto) [place] % (Auto) Eos % (Auto) Lymph # [place] # Eos # Seg Neutrophils % Seg Neutrophils # PT INR POC ABG pH POC ABG pCO2 POC ABG pO2 VBG pH Sodium 136 L Potassium Chloride Carbon Dioxide BUN 30 H Creatinine 0.7 L Glucose 103 H POC Glucose 125 H 122 H Calcium Magnesium 2.50 H AST ALT Alkaline Phosphatase Total Creatine Kinase NT-Pro-B Natriuret Pep Albumin Urine WBC (Auto) Crossmatch 11/23/18 11/23/18 11/23/18 11:56 17:39 23:40 WBC RBC Hgb Hct MCH MCHC RDW Plt Count Lymph % (Auto) [place] % (Auto) Eos % (Auto) Lymph # [place] # Eos # Seg Neutrophils % Seg Neutrophils # PT INR POC ABG pH POC ABG pCO2 POC ABG pO2 VBG pH Sodium Potassium Chloride Carbon Dioxide BUN Creatinine Glucose POC Glucose 121 H 113 H 117 H Calcium Magnesium AST ALT Alkaline Phosphatase Total Creatine Kinase NT-Pro-B Natriuret Pep Albumin Urine WBC (Auto) Crossmatch 11/24/18 11/24/18 11/24/18 05:13 12:00 18:13 WBC RBC Hgb Hct MCH MCHC RDW Plt Count Lymph % (Auto) [place] % (Auto) Eos % (Auto) Lymph # [place] # Eos # Seg Neutrophils % Seg Neutrophils # PT INR POC ABG pH POC ABG pCO2 POC ABG pO2 VBG pH Sodium Potassium Chloride Carbon Dioxide BUN Creatinine Glucose POC Glucose 143 H 123 H 124 H Calcium Magnesium AST ALT Alkaline Phosphatase Total Creatine Kinase NT-Pro-B Natriuret Pep Albumin Urine WBC (Auto) Crossmatch 11/24/18 11/25/18 11/25/18 23:34 05:25 05:25 WBC RBC 2.48 L Hgb 6.8 L Hct 21.2 L MCH MCHC RDW 17.7 H Plt Count Lymph % (Auto) [place] % (Auto) Eos % (Auto) Lymph # [place] # Eos # Seg Neutrophils % Seg Neutrophils # PT INR POC ABG pH POC ABG pCO2 POC ABG pO2 VBG pH Sodium Potassium Chloride 108.8 H Carbon Dioxide BUN 30 H Creatinine 0.7 L Glucose 112 H POC Glucose 115 H Calcium Magnesium AST ALT Alkaline Phosphatase Total Creatine Kinase NT-Pro-B Natriuret Pep Albumin Urine WBC (Auto) Crossmatch 11/25/18 11/25/18 11/25/18 06:46 11:15 11:28 WBC RBC Hgb 7.4 L Hct 23.0 L MCH MCHC RDW Plt Count Lymph % (Auto) [place] % (Auto) Eos % (Auto) Lymph # [place] # Eos # Seg Neutrophils % Seg Neutrophils # PT INR POC ABG pH POC ABG pCO2 POC ABG pO2 VBG pH Sodium Potassium Chloride Carbon Dioxide BUN Creatinine Glucose POC Glucose 133 H 127 H Calcium Magnesium AST ALT Alkaline Phosphatase Total Creatine Kinase NT-Pro-B Natriuret Pep Albumin Urine WBC (Auto) Crossmatch 11/25/18 11/25/18 11/25/18 15:28 17:32 23:45 WBC RBC Hgb Hct MCH MCHC RDW Plt Count Lymph % (Auto) [place] % (Auto) Eos % (Auto) Lymph # [place] # Eos # Seg Neutrophils % Seg Neutrophils # PT INR POC ABG pH POC ABG pCO2 POC ABG pO2 VBG pH Sodium Potassium Chloride Carbon Dioxide BUN Creatinine Glucose POC Glucose 115 H 130 H Calcium Magnesium AST ALT Alkaline Phosphatase Total Creatine Kinase NT-Pro-B Natriuret Pep Albumin Urine WBC (Auto) Crossmatch See Detail 11/26/18 11/26/18 11/26/18 06:13 06:20 06:20 WBC RBC 2.76 L Hgb 7.7 L Hct 23.4 L MCH MCHC RDW 17.5 H Plt Count Lymph % (Auto) [place] % (Auto) Eos % (Auto) Lymph # [place] # Eos # Seg Neutrophils % Seg Neutrophils # PT INR POC ABG pH POC ABG pCO2 POC ABG pO2 VBG pH Sodium Potassium Chloride 109.9 H Carbon Dioxide BUN 30 H Creatinine 0.6 L Glucose 121 H POC Glucose 129 H Calcium Magnesium AST ALT Alkaline Phosphatase Total Creatine Kinase NT-Pro-B Natriuret Pep Albumin Urine WBC (Auto) Crossmatch 11/26/18 11/26/18 11/27/18 12:06 16:35 06:04 WBC RBC Hgb Hct MCH MCHC RDW Plt Count Lymph % (Auto) [place] % (Auto) Eos % (Auto) Lymph # [place] # Eos # Seg Neutrophils % Seg Neutrophils # PT INR POC ABG pH POC ABG pCO2 POC ABG pO2 VBG pH Sodium Potassium Chloride Carbon Dioxide BUN Creatinine Glucose POC Glucose 139 H 107 H 126 H Calcium Magnesium AST ALT Alkaline Phosphatase Total Creatine Kinase NT-Pro-B Natriuret Pep Albumin Urine WBC (Auto) Crossmatch 11/27/18 11/27/18 11/28/18 13:14 17:47 07:03 WBC RBC Hgb Hct MCH MCHC RDW Plt Count Lymph % (Auto) [place] % (Auto) Eos % (Auto) Lymph # [place] # Eos # Seg Neutrophils % Seg Neutrophils # PT INR POC ABG pH POC ABG pCO2 POC ABG pO2 VBG pH Sodium Potassium Chloride Carbon Dioxide BUN Creatinine Glucose POC Glucose 130 H 115 H 118 H Calcium Magnesium AST ALT Alkaline Phosphatase Total Creatine Kinase NT-Pro-B Natriuret Pep Albumin Urine WBC (Auto) Crossmatch 11/28/18 11/29/18 11/29/18 11:38 00:35 04:56 WBC RBC Hgb Hct MCH MCHC RDW Plt Count Lymph % (Auto) [place] % (Auto) Eos % (Auto) Lymph # [place] # Eos # Seg Neutrophils % Seg Neutrophils # PT INR POC ABG pH POC ABG pCO2 POC ABG pO2 VBG pH Sodium Potassium Chloride Carbon Dioxide BUN Creatinine Glucose POC Glucose 126 H 107 H Calcium Magnesium AST ALT Alkaline Phosphatase Total Creatine Kinase 50 L NT-Pro-B Natriuret Pep Albumin Urine WBC (Auto) Crossmatch 11/29/18 11/29/18 11/29/18 05:49 11:46 18:17 WBC RBC Hgb Hct MCH MCHC RDW Plt Count Lymph % (Auto) [place] % (Auto) Eos % (Auto) Lymph # [place] # Eos # Seg Neutrophils % Seg Neutrophils # PT INR POC ABG pH POC ABG pCO2 POC ABG pO2 VBG pH Sodium Potassium Chloride Carbon Dioxide BUN Creatinine Glucose POC Glucose 128 H 140 H 115 H Calcium Magnesium AST ALT Alkaline Phosphatase Total Creatine Kinase NT-Pro-B Natriuret Pep Albumin Urine WBC (Auto) Crossmatch 11/30/18 11/30/18 11/30/18 00:00 03:30 03:30 WBC RBC 2.97 L Hgb 8.1 L Hct 25.5 L MCH 27 L MCHC RDW 17.7 H Plt Count Lymph % (Auto) 9.2 L [place] % (Auto) 10.0 H Eos % (Auto) 4.6 H Lymph # 1.0 L [place] # 1.1 H Eos # 0.5 H Seg Neutrophils % 75.6 H Seg Neutrophils # 8.4 H PT INR POC ABG pH POC ABG pCO2 POC ABG pO2 VBG pH Sodium Potassium Chloride Carbon Dioxide BUN 31 H Creatinine 0.7 L Glucose POC Glucose 120 H Calcium Magnesium AST ALT Alkaline Phosphatase Total Creatine Kinase NT-Pro-B Natriuret Pep Albumin Urine WBC (Auto) Crossmatch 11/30/18 11/30/18 11/30/18 06:54 11:45 16:59 WBC RBC Hgb Hct MCH MCHC RDW Plt Count Lymph % (Auto) [place] % (Auto) Eos % (Auto) Lymph # [place] # Eos # Seg Neutrophils % Seg Neutrophils # PT INR POC ABG pH POC ABG pCO2 POC ABG pO2 VBG pH Sodium Potassium Chloride Carbon Dioxide BUN Creatinine Glucose POC Glucose 120 H 123 H 111 H Calcium Magnesium AST ALT Alkaline Phosphatase Total Creatine Kinase NT-Pro-B Natriuret Pep Albumin Urine WBC (Auto) Crossmatch 12/01/18 12/01/18 12/01/18 00:20 05:58 11:33 WBC RBC Hgb Hct MCH MCHC RDW Plt Count Lymph % (Auto) [place] % (Auto) Eos % (Auto) Lymph # [place] # Eos # Seg Neutrophils % Seg Neutrophils # PT INR POC ABG pH POC ABG pCO2 POC ABG pO2 VBG pH Sodium Potassium Chloride Carbon Dioxide BUN Creatinine Glucose POC Glucose 113 H 127 H 138 H Calcium Magnesium AST ALT Alkaline Phosphatase Total Creatine Kinase NT-Pro-B Natriuret Pep Albumin Urine WBC (Auto) Crossmatch 12/02/18 12/03/18 12/03/18 00:33 05:07 05:07 WBC RBC 2.93 L Hgb 8.2 L Hct 24.9 L MCH MCHC RDW 17.0 H Plt Count 470 H Lymph % (Auto) 9.3 L [place] % (Auto) 8.6 H Eos % (Auto) 5.4 H Lymph # 0.9 L [place] # Eos # 0.5 H Seg Neutrophils % 75.8 H Seg Neutrophils # PT INR POC ABG pH POC ABG pCO2 POC ABG pO2 VBG pH Sodium Potassium Chloride Carbon Dioxide BUN 30 H Creatinine 0.6 L Glucose 115 H POC Glucose 110 H Calcium Magnesium AST ALT Alkaline Phosphatase Total Creatine Kinase NT-Pro-B Natriuret Pep Albumin Urine WBC (Auto) Crossmatch 12/03/18 12/03/18 12/03/18 05:58 11:49 17:44 WBC RBC Hgb Hct MCH MCHC RDW Plt Count Lymph % (Auto) [place] % (Auto) Eos % (Auto) Lymph # [place] # Eos # Seg Neutrophils % Seg Neutrophils # PT INR POC ABG pH POC ABG pCO2 POC ABG pO2 VBG pH Sodium Potassium Chloride Carbon Dioxide BUN Creatinine Glucose POC Glucose 127 H 138 H 127 H Calcium Magnesium AST ALT Alkaline Phosphatase Total Creatine Kinase NT-Pro-B Natriuret Pep Albumin Urine WBC (Auto) Crossmatch 12/05/18 12/05/18 12/05/18 00:22 05:53 17:18 WBC RBC Hgb Hct MCH MCHC RDW Plt Count Lymph % (Auto) [place] % (Auto) Eos % (Auto) Lymph # [place] # Eos # Seg Neutrophils % Seg Neutrophils # PT INR POC ABG pH POC ABG pCO2 POC ABG pO2 VBG pH Sodium Potassium Chloride Carbon Dioxide BUN Creatinine Glucose POC Glucose 124 H 121 H 112 H Calcium Magnesium AST ALT Alkaline Phosphatase Total Creatine Kinase NT-Pro-B Natriuret Pep Albumin Urine WBC (Auto) Crossmatch 12/06/18 12/06/18 12/06/18 00:07 06:16 11:43 WBC RBC Hgb Hct MCH MCHC RDW Plt Count Lymph % (Auto) [place] % (Auto) Eos % (Auto) Lymph # [place] # Eos # Seg Neutrophils % Seg Neutrophils # PT INR POC ABG pH POC ABG pCO2 POC ABG pO2 VBG pH Sodium Potassium Chloride Carbon Dioxide BUN Creatinine Glucose POC Glucose 111 H 117 H 121 H Calcium Magnesium AST ALT Alkaline Phosphatase Total Creatine Kinase NT-Pro-B Natriuret Pep Albumin Urine WBC (Auto) Crossmatch 12/06/18 12/07/18 12/07/18 20:57 06:41 12:09 WBC RBC Hgb Hct MCH MCHC RDW Plt Count Lymph % (Auto) [place] % (Auto) Eos % (Auto) Lymph # [place] # Eos # Seg Neutrophils % Seg Neutrophils # PT INR POC ABG pH POC ABG pCO2 POC ABG pO2 VBG pH Sodium Potassium Chloride 107.2 H Carbon Dioxide BUN 27 H Creatinine 0.7 L Glucose POC Glucose 128 H 137 H Calcium Magnesium 2.50 H AST ALT Alkaline Phosphatase Total Creatine Kinase NT-Pro-B Natriuret Pep Albumin Urine WBC (Auto) Crossmatch 12/07/18 12/08/18 12/08/18 19:29 05:44 12:27 WBC RBC Hgb Hct MCH MCHC RDW Plt Count Lymph % (Auto) [place] % (Auto) Eos % (Auto) Lymph # [place] # Eos # Seg Neutrophils % Seg Neutrophils # PT INR POC ABG pH POC ABG pCO2 POC ABG pO2 VBG pH Sodium Potassium Chloride Carbon Dioxide BUN Creatinine Glucose POC Glucose 110 H 126 H 130 H Calcium Magnesium AST ALT Alkaline Phosphatase Total Creatine Kinase NT-Pro-B Natriuret Pep Albumin Urine WBC (Auto) Crossmatch 12/08/18 12/09/18 12/09/18 17:44 00:20 06:42 WBC RBC Hgb Hct MCH MCHC RDW Plt Count Lymph % (Auto) [place] % (Auto) Eos % (Auto) Lymph # [place] # Eos # Seg Neutrophils % Seg Neutrophils # PT INR POC ABG pH POC ABG pCO2 POC ABG pO2 VBG pH Sodium Potassium Chloride Carbon Dioxide BUN Creatinine Glucose POC Glucose 113 H 121 H 124 H Calcium Magnesium AST ALT Alkaline Phosphatase Total Creatine Kinase NT-Pro-B Natriuret Pep Albumin Urine WBC (Auto) Crossmatch 12/09/18 12/09/18 12/09/18 12:24 18:41 23:48 WBC RBC Hgb Hct MCH MCHC RDW Plt Count Lymph % (Auto) [place] % (Auto) Eos % (Auto) Lymph # [place] # Eos # Seg Neutrophils % Seg Neutrophils # PT INR POC ABG pH POC ABG pCO2 POC ABG pO2 VBG pH Sodium Potassium Chloride Carbon Dioxide BUN Creatinine Glucose POC Glucose 114 H 109 H 128 H Calcium Magnesium AST ALT Alkaline Phosphatase Total Creatine Kinase NT-Pro-B Natriuret Pep Albumin Urine WBC (Auto) Crossmatch 12/10/18 12/10/18 12/11/18 07:07 11:28 00:24 WBC RBC Hgb Hct MCH MCHC RDW Plt Count Lymph % (Auto) [place] % (Auto) Eos % (Auto) Lymph # [place] # Eos # Seg Neutrophils % Seg Neutrophils # PT INR POC ABG pH POC ABG pCO2 POC ABG pO2 VBG pH Sodium Potassium Chloride Carbon Dioxide BUN Creatinine Glucose POC Glucose 111 H 110 H 112 H Calcium Magnesium AST ALT Alkaline Phosphatase Total Creatine Kinase NT-Pro-B Natriuret Pep Albumin Urine WBC (Auto) Crossmatch 12/11/18 12/11/18 12/11/18 06:44 11:53 18:17 WBC RBC Hgb Hct MCH MCHC RDW Plt Count Lymph % (Auto) [place] % (Auto) Eos % (Auto) Lymph # [place] # Eos # Seg Neutrophils % Seg Neutrophils # PT INR POC ABG pH POC ABG pCO2 POC ABG pO2 VBG pH Sodium Potassium Chloride Carbon Dioxide BUN Creatinine Glucose POC Glucose 111 H 132 H 133 H Calcium Magnesium AST ALT Alkaline Phosphatase Total Creatine Kinase NT-Pro-B Natriuret Pep Albumin Urine WBC (Auto) Crossmatch 12/11/18 12/12/18 12/12/18 23:58 00:05 06:11 WBC RBC 2.85 L Hgb 7.8 L Hct 24.4 L MCH 27 L MCHC RDW 17.4 H Plt Count 459 H Lymph % (Auto) [place] % (Auto) 11.2 H Eos % (Auto) 5.4 H Lymph # [place] # 1.1 H Eos # 0.5 H Seg Neutrophils % Seg Neutrophils # PT INR POC ABG pH POC ABG pCO2 POC ABG pO2 VBG pH Sodium Potassium Chloride Carbon Dioxide BUN Creatinine Glucose POC Glucose 126 H 144 H Calcium Magnesium AST ALT Alkaline Phosphatase Total Creatine Kinase NT-Pro-B Natriuret Pep Albumin Urine WBC (Auto) Crossmatch 12/12/18 12/12/18 12/13/18 11:42 18:36 00:12 WBC RBC Hgb Hct MCH MCHC RDW Plt Count Lymph % (Auto) [place] % (Auto) Eos % (Auto) Lymph # [place] # Eos # Seg Neutrophils % Seg Neutrophils # PT INR POC ABG pH POC ABG pCO2 POC ABG pO2 VBG pH Sodium Potassium Chloride Carbon Dioxide BUN Creatinine Glucose POC Glucose 106 H 117 H 115 H Calcium Magnesium AST ALT Alkaline Phosphatase Total Creatine Kinase NT-Pro-B Natriuret Pep Albumin Urine WBC (Auto) Crossmatch 12/13/18 12/13/18 12/13/18 05:58 11:52 23:57 WBC RBC Hgb Hct MCH MCHC RDW Plt Count Lymph % (Auto) [place] % (Auto) Eos % (Auto) Lymph # [place] # Eos # Seg Neutrophils % Seg Neutrophils # PT INR POC ABG pH POC ABG pCO2 POC ABG pO2 VBG pH Sodium Potassium Chloride Carbon Dioxide BUN Creatinine Glucose POC Glucose 122 H 129 H 125 H Calcium Magnesium AST ALT Alkaline Phosphatase Total Creatine Kinase NT-Pro-B Natriuret Pep Albumin Urine WBC (Auto) Crossmatch 12/14/18 12/14/18 12/14/18 04:44 04:44 05:44 WBC RBC 2.56 L Hgb 7.2 L Hct 22.1 L MCH MCHC RDW 17.8 H Plt Count 473 H Lymph % (Auto) [place] % (Auto) 11.5 H Eos % (Auto) 4.8 H Lymph # [place] # 1.1 H Eos # Seg Neutrophils % Seg Neutrophils # PT INR POC ABG pH POC ABG pCO2 POC ABG pO2 VBG pH Sodium 151 H Potassium Chloride 116.7 H Carbon Dioxide BUN 40 H Creatinine Glucose 114 H POC Glucose 117 H Calcium Magnesium AST 80 H ALT 67 H Alkaline Phosphatase 247 H Total Creatine Kinase NT-Pro-B Natriuret Pep Albumin 1.9 L Urine WBC (Auto) Crossmatch 12/14/18 12/15/18 12/15/18 11:29 00:01 05:13 WBC RBC 2.68 L Hgb 7.4 L Hct 23.1 L MCH MCHC RDW 17.6 H Plt Count 454 H Lymph % (Auto) 13.3 L [place] % (Auto) 9.7 H Eos % (Auto) 6.9 H Lymph # [place] # Eos # 0.6 H Seg Neutrophils % Seg Neutrophils # PT INR POC ABG pH POC ABG pCO2 POC ABG pO2 VBG pH Sodium Potassium Chloride Carbon Dioxide BUN Creatinine Glucose POC Glucose 115 H 113 H Calcium Magnesium AST ALT Alkaline Phosphatase Total Creatine Kinase NT-Pro-B Natriuret Pep Albumin Urine WBC (Auto) Crossmatch 12/15/18 12/15/18 12/15/18 05:13 06:31 11:31 WBC RBC Hgb Hct MCH MCHC RDW Plt Count Lymph % (Auto) [place] % (Auto) Eos % (Auto) Lymph # [place] # Eos # Seg Neutrophils % Seg Neutrophils # PT INR POC ABG pH POC ABG pCO2 POC ABG pO2 VBG pH Sodium 151 H Potassium Chloride 116.4 H Carbon Dioxide BUN 39 H Creatinine Glucose 110 H POC Glucose 130 H 127 H Calcium Magnesium AST 85 H ALT 78 H Alkaline Phosphatase 255 H Total Creatine Kinase NT-Pro-B Natriuret Pep Albumin 1.9 L Urine WBC (Auto) Crossmatch 12/15/18 12/16/18 12/16/18 17:54 00:27 00:33 WBC RBC Hgb Hct MCH MCHC RDW Plt Count Lymph % (Auto) [place] % (Auto) Eos % (Auto) Lymph # [place] # Eos # Seg Neutrophils % Seg Neutrophils # PT INR POC ABG pH POC ABG pCO2 POC ABG pO2 VBG pH Sodium Potassium Chloride Carbon Dioxide BUN Creatinine Glucose POC Glucose 122 H 131 H Calcium Magnesium AST ALT Alkaline Phosphatase Total Creatine Kinase 50 L NT-Pro-B Natriuret Pep Albumin Urine WBC (Auto) Crossmatch 12/16/18 12/16/18 12/16/18 05:31 11:31 17:22 WBC RBC Hgb Hct MCH MCHC RDW Plt Count Lymph % (Auto) [place] % (Auto) Eos % (Auto) Lymph # [place] # Eos # Seg Neutrophils % Seg Neutrophils # PT INR POC ABG pH POC ABG pCO2 POC ABG pO2 VBG pH Sodium Potassium Chloride Carbon Dioxide BUN Creatinine Glucose POC Glucose 138 H 121 H 114 H Calcium Magnesium AST ALT Alkaline Phosphatase Total Creatine Kinase NT-Pro-B Natriuret Pep Albumin Urine WBC (Auto) Crossmatch 12/16/18 12/17/18 12/17/18 23:56 05:01 05:01 WBC 11.1 H RBC 2.96 L Hgb 7.9 L Hct 25.7 L MCH 27 L MCHC 31 L RDW 17.9 H Plt Count 479 H Lymph % (Auto) 11.3 L [place] % (Auto) 7.5 H Eos % (Auto) 4.5 H Lymph # [place] # Eos # 0.5 H Seg Neutrophils % 75.9 H Seg Neutrophils # 8.4 H PT INR POC ABG pH POC ABG pCO2 POC ABG pO2 VBG pH Sodium 155 H Potassium Chloride 121.2 H Carbon Dioxide BUN 41 H Creatinine Glucose 122 H POC Glucose 137 H Calcium Magnesium AST 97 H ALT 99 H Alkaline Phosphatase 279 H Total Creatine Kinase NT-Pro-B Natriuret Pep Albumin 1.8 L Urine WBC (Auto) Crossmatch 12/17/18 12/17/18 12/18/18 11:52 18:17 00:17 WBC RBC Hgb Hct MCH MCHC RDW Plt Count Lymph % (Auto) [place] % (Auto) Eos % (Auto) Lymph # [place] # Eos # Seg Neutrophils % Seg Neutrophils # PT INR POC ABG pH POC ABG pCO2 POC ABG pO2 VBG pH Sodium Potassium Chloride Carbon Dioxide BUN Creatinine Glucose POC Glucose 142 H 140 H 160 H Calcium Magnesium AST ALT Alkaline Phosphatase Total Creatine Kinase NT-Pro-B Natriuret Pep Albumin Urine WBC (Auto) Crossmatch 12/18/18 12/18/18 12/18/18 05:39 05:40 05:40 WBC 11.7 H RBC 2.76 L Hgb 7.5 L Hct 23.8 L MCH 27 L MCHC 31 L RDW 17.8 H Plt Count Lymph % (Auto) [place] % (Auto) Eos % (Auto) Lymph # [place] # Eos # Seg Neutrophils % Seg Neutrophils # PT INR POC ABG pH POC ABG pCO2 POC ABG pO2 VBG pH Sodium 153 H Potassium Chloride 117.6 H Carbon Dioxide BUN 48 H Creatinine Glucose 122 H POC Glucose 138 H Calcium Magnesium AST ALT Alkaline Phosphatase Total Creatine Kinase NT-Pro-B Natriuret Pep Albumin Urine WBC (Auto) Crossmatch 12/18/18 12/18/18 12/19/18 11:32 17:26 00:38 WBC RBC Hgb Hct MCH MCHC RDW Plt Count Lymph % (Auto) [place] % (Auto) Eos % (Auto) Lymph # [place] # Eos # Seg Neutrophils % Seg Neutrophils # PT INR POC ABG pH POC ABG pCO2 POC ABG pO2 VBG pH Sodium Potassium Chloride Carbon Dioxide BUN Creatinine Glucose POC Glucose 136 H 125 H 126 H Calcium Magnesium AST ALT Alkaline Phosphatase Total Creatine Kinase NT-Pro-B Natriuret Pep Albumin Urine WBC (Auto) Crossmatch 12/19/18 12/19/18 12/19/18 05:22 05:22 06:19 WBC 12.2 H RBC 2.86 L Hgb 7.6 L Hct 24.4 L MCH 27 L MCHC 31 L RDW 17.8 H Plt Count Lymph % (Auto) [place] % (Auto) Eos % (Auto) Lymph # [place] # Eos # Seg Neutrophils % Seg Neutrophils # PT INR POC ABG pH POC ABG pCO2 POC ABG pO2 VBG pH Sodium Potassium 5.9 H D Chloride 109.7 H Carbon Dioxide BUN 45 H Creatinine Glucose 107 H POC Glucose 136 H Calcium 8.3 L Magnesium AST ALT Alkaline Phosphatase Total Creatine Kinase NT-Pro-B Natriuret Pep Albumin Urine WBC (Auto) Crossmatch 12/19/18 12/19/18 12/19/18 08:23 11:44 17:09 WBC RBC Hgb Hct MCH MCHC RDW Plt Count Lymph % (Auto) [place] % (Auto) Eos % (Auto) Lymph # [place] # Eos # Seg Neutrophils % Seg Neutrophils # PT INR POC ABG pH POC ABG pCO2 POC ABG pO2 VBG pH Sodium Potassium Chloride 107.7 H Carbon Dioxide BUN 42 H Creatinine Glucose 118 H POC Glucose 130 H 118 H Calcium Magnesium AST ALT Alkaline Phosphatase Total Creatine Kinase NT-Pro-B Natriuret Pep Albumin Urine WBC (Auto) Crossmatch 12/19/18 12/20/18 12/20/18 23:59 05:52 06:24 WBC RBC Hgb Hct MCH MCHC RDW Plt Count Lymph % (Auto) [place] % (Auto) Eos % (Auto) Lymph # [place] # Eos # Seg Neutrophils % Seg Neutrophils # PT INR POC ABG pH POC ABG pCO2 POC ABG pO2 VBG pH Sodium Potassium 5.2 H Chloride 107.2 H Carbon Dioxide 21 L BUN 44 H Creatinine Glucose 118 H POC Glucose 150 H 138 H Calcium Magnesium AST ALT Alkaline Phosphatase Total Creatine Kinase NT-Pro-B Natriuret Pep Albumin Urine WBC (Auto) Crossmatch 12/20/18 12/20/18 12/21/18 11:34 17:10 00:07 WBC RBC Hgb Hct MCH MCHC RDW Plt Count Lymph % (Auto) [place] % (Auto) Eos % (Auto) Lymph # [place] # Eos # Seg Neutrophils % Seg Neutrophils # PT INR POC ABG pH POC ABG pCO2 POC ABG pO2 VBG pH Sodium Potassium Chloride Carbon Dioxide BUN Creatinine Glucose POC Glucose 134 H 141 H 145 H Calcium Magnesium AST ALT Alkaline Phosphatase Total Creatine Kinase NT-Pro-B Natriuret Pep Albumin Urine WBC (Auto) Crossmatch 12/21/18 12/21/18 12/21/18 05:37 05:37 06:58 WBC 12.3 H RBC 2.67 L Hgb 7.1 L Hct 22.4 L MCH 27 L MCHC RDW 17.5 H Plt Count Lymph % (Auto) [place] % (Auto) Eos % (Auto) Lymph # [place] # Eos # Seg Neutrophils % Seg Neutrophils # PT INR POC ABG pH POC ABG pCO2 POC ABG pO2 VBG pH Sodium Potassium Chloride Carbon Dioxide BUN 42 H Creatinine Glucose 127 H POC Glucose 152 H Calcium Magnesium AST ALT Alkaline Phosphatase Total Creatine Kinase NT-Pro-B Natriuret Pep Albumin Urine WBC (Auto) Crossmatch 12/21/18 12:06 WBC RBC Hgb Hct MCH MCHC RDW Plt Count Lymph % (Auto) [place] % (Auto) Eos % (Auto) Lymph # [place] # Eos # Seg Neutrophils % Seg Neutrophils # PT INR POC ABG pH POC ABG pCO2 POC ABG pO2 VBG pH Sodium Potassium Chloride Carbon Dioxide BUN Creatinine Glucose POC Glucose 140 H Calcium Magnesium AST ALT Alkaline Phosphatase Total Creatine Kinase NT-Pro-B Natriuret Pep Albumin Urine WBC (Auto) Crossmatch Chest x-ray: report reviewed (REPORTED NO ACUTE FINDINGS.), image reviewed Allied health notes reviewed: nursing
[2018-12-22] MEDS: APRESOLINE PO SCH ×3 (02:21→23:29)
[2018-12-22] MEDS: VITAMIN C FEEDTUBE SCH ×3 (02:25→21:29)
[2018-12-22 06:18] LABS: Hematocrit 23.4 % (35.5-45.6); Hemoglobin 7.5 gm/dl (11.8-15.2); Mean Corpuscular HGB Conc 32 % (32-34); Mean Corpuscular Volume 83 fl (84-94); Platelet Count 424 K/mm3 (140-440); Red Blood Count 2.82 M/mm3 (3.65-5.03); Red Cell Distribution Width 17.2 % (13.2-15.2)
[2018-12-22 06:28] LABS: BUN/Creatinine Ratio 48; Blood Urea Nitrogen 48 mg/dL (9-20); Calcium 8.5 mg/dL (8.4-10.2); Hemolysis Index 3
[2018-12-22] MEDS: D5W 1,000 ML IV SCH (09:46)
[2018-12-22] MEDS: KEPPRA FEEDTUBE SCH ×2 (09:47→21:29)
[2018-12-22] MEDS: ZINC SULFATE PO SCH (09:47)
[2018-12-22] MEDS: Centrum Liq FEEDTUBE SCH (09:47)
[2018-12-22] MEDS: MIRALAX 3350 FEEDTUBE SCH (09:48)
[2018-12-22] MEDS: LOVENOX SUB-Q SCH (09:48)
[2018-12-22] MEDS: COREG PO SCH ×2 (09:48→21:31)
[2018-12-22] MEDS: SODIUM CHLORIDE FLUSH SYRINGE 10 ML IV SCH ×2 (09:49→21:30)
--- NOTE | 2018-12-22 11:42 | Progress Note ---
Assessment and Plan Cultures: Blood culture 10/01/2018 MRSA 2 of 4. Blood culture 10/03/2018 MRSA Blood culture 10/08/2018 no growth Blood culture 10/11/2018 no growth Blood culture 10/21/2018 no growth Blood culture 11/01/2018 Staph haemolyticus 2 of 4 bottles, resistent to methicillin and MRSA 1 of 4 bottles Blood culture 11/04/2018 no growth Blood culture 12/21/2018 no growth Assessment: 67 y/o male with history of HTN, CVA, Obstructive Uropathy, Contracture, Multiple Decubitus Ulcers, VT, DM, OA, Seizure Disorder, COPD, Dementia, Debility, BPH, well known to ID due to multiple admissions secondary to ducubitus ulcers infections and recurrent bacteremia, last time admitted on 10/02/2018 found with MRSA bacteremia jessica from decubitus ulcers mainly active large left trochanteric with bone exposure and sacral with bone exposure. Patient's infection was deemed incurable and hospice was recommended. Patient was discharged back to [facility] on IV vancomycin 1 gm every 48 hours for total 6 weeks ending 11/12/2018 via neck tunneled cath. Patient was readmitted on due to AMS, worsening SOB. Patient is lethargic and unable to provide history. At the [facility] he was found to have respiratory distress upon evaluation the morning of admission,pulse oximetry in the 80's: 1) New Fever: Fever spike noted on 12/19/18 102.8. Fever curve now trending down. Repeat blood cultures show no growth to date. Start Vancomycin and Cefepime . When blood cultures clear for 48 hours, will stop antibiotics. When cultures are clear for 48 hours and no fevers, will consider removal of left tunneled cath. At risk for for CLABSI. 2) Severe Sepsis: Resolved. Etiology most likely Recurrent Staph bacteremia +/- CAUTI. 3) Staph haemolyticus and MRSA bacteremia with recent MRSA bacteremia: Blood culture 11/01/2018 Staph haemolyticus 2 of 4 bottles and MRSA 1 of 4. Source likely multiple decubitus ulcers or Neck IV central line. Patient is failing vancomycin. He has a tunneled neck cath. Recent TTE negative for vegetations. On daptomycin. 4) Recent septic shock due to polymicrobial bacteremia ESBL and carbapenem resistant E coli, MDR Proteus, Strep and E faecalis on 07/29/2018 probably from multiple infected decubitus ulcers and less likely UTI. Repeat blood cultures 07/31/2018 showed same MDR E coli 1 of 4 bottles then 08/06/2018 blood cultures showed no growth. Patient was treated with Vabomere for 14 days. 5) Multiple infected decubitus ulcers: His prognosis has been poor and hospice has been recommended several times in the past but family has declined. declined. His wounds are not curable considering his contractures, bed bound status and poor nutritional status. There was also suspicion of septic arthritis of left hip from decubitus ulcer. S/p debridement of multiple pressure ulcerations on 11/07/2018- stage 4 left hip pressure ulceration was surgically excisionally debrided of necrotic bone, stage 3 sacral, right ankle and left heel pressure ulcers were then surgically, excisionally debrided of necrotic SQ fat, stage 4 right heel, left lateral heel and right lateral leg ulcerations were surgically, excisionally debrided of necrotic SQ tissue, muscle and fascia. Dr Man recommended bilateral AKA, patient and daughter refused. Dr Man recommended Orthopedic consultation for possible left hip disarticulation as his left hip joint is crumbling and has profuse purulent drainage. 6) Recurrent UTI: new bright placed this admission 7) Acute encephalopathy: multifactorial. 8) Acute resp failure: was on BIPAP now NC O2. EF 30-35% pericaldial and pleural effusion. Recommendations: Start Vancomycin PK dosing Start Cefepime 2 gms IV every 12 hours. CBC ordered for tomorrow When cultures are clear for 48 hours and no fevers, will consider removal of left tunneled cath. At risk for for CLABSI. 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 He needs to be on contact isolation. This cannot be cured with antibiotics. Needs to be hospice Grim prognosis. Jacquie Jean Baptiste NP [facility] M: [id number] O:[phone] Subjective Date of service: 12/22/18 Principal diagnosis: Severe Sepsis; Ac. Hypoxemic Resp failure; Anemia; Seizure; UTI; BPH Interval history: Patient seen and examined. Asleep, easy to arouse. No generalized pain reported. No fevers. Objective - Exam Narrative Exam: General appearance: Asleep. Easy to arouse. No acute distress. Eyes: anicteric sclerae, moist conjunctivae; no lid-lag; PERRLA HENT: Atraumatic; oropharynx limited Neck: Trachea midline; supple, no thyromegaly or lymphadenopathy Lungs: CTA CV: RRR no murmur Abdomen: Soft, non-tender Extremities: marked legs contractions, multiple decubitus ulcers covered with dressings. Right leg dressing with serosanguinous drainage. Skin: multiple skin tears Psych: Calm Neuro: asleep, easy to arouse Lines: left tunneled catheter - Constitutional Vitals: Vital Signs Temp Pulse Resp BP Pulse Ox 98.9 F 111 H 20 104/54 95 12/22/18 07:21 12/22/18 07:21 12/22/18 07:21 12/22/18 07:21 12/22/18 07:21 Temperature -Last 24 Hours Temperature 98.9 F Temperature 99.8 F Temperature 99.7 F Temperature 99.7 F - Labs CBC & Chem 7: 12/22/18 05:42 12/22/18 05:42 Labs: Abnormal lab results 12/21/18 12/21/18 12/22/18 Range/Units 12:06 17:43 00:11 WBC (4.5-11.0) K/mm3 RBC (3.65-5.03) M/mm3 Hgb (11.8-15.2) gm/dl Hct (35.5-45.6) % MCV (84-94) fl MCH (28-32) pg RDW (13.2-15.2) % BUN (9-20) mg/dL Glucose (75-100) mg/dL POC Glucose 140 H 122 H 128 H (70-105) 12/22/18 12/22/18 12/22/18 Range/Units 05:42 05:42 06:35 WBC 12.8 H (4.5-11.0) K/mm3 RBC 2.82 L (3.65-5.03) M/mm3 Hgb 7.5 L (11.8-15.2) gm/dl Hct 23.4 L (35.5-45.6) % MCV 83 L (84-94) fl MCH 27 L (28-32) pg RDW 17.2 H (13.2-15.2) % BUN 48 H (9-20) mg/dL Glucose 115 H (75-100) mg/dL POC Glucose 120 H (70-105) 12/22/18 Range/Units 11:30 WBC (4.5-11.0) K/mm3 RBC (3.65-5.03) M/mm3 Hgb (11.8-15.2) gm/dl Hct (35.5-45.6) % MCV (84-94) fl MCH (28-32) pg RDW (13.2-15.2) % BUN (9-20) mg/dL Glucose (75-100) mg/dL POC Glucose 151 H (70-105)
--- NOTE | 2018-12-22 12:53 | Progress Note ---
Assessment and Plan Patient is weak and contracted and has multiple pressure wounds. Patients general medical condition poor and unchanged. Patient Sleep. Not follow commands. On room air at this time. No acute respiratory distress. O2 sat 93%. Patient running low grade temp. Has mild leukocytosis. Antibiotics as per infectious diseases. - Patient Problems (1) Respiratory failure Current Visit: Yes Status: Acute Qualifiers: Chronicity: acute Respiratory failure complication: hypoxia Qualified Code(s): J96.01 - Acute respiratory failure with hypoxia Plan to address problem: Continue O2 supplementation 2 L via nasal canula. Albuterol and Atrovent treatment q6h. Continue SQ Levonox. Recommend GI prophylexis. (2) Seizure Current Visit: Yes Status: Acute Plan to address problem: Management as per neurologist. (3) Sepsis Current Visit: Yes Status: Acute Plan to address problem: Patient treated with Daptomycine . Antibiotic management as per infectious diseases. (4) UTI (urinary tract infection) Current Visit: Yes Status: Acute Qualifiers: Encounter type: initial encounter Plan to address problem: Patient is treated with Daptomycine . Antibiotic management as per infectious diseases. (5) ARF (acute renal failure) with tubular necrosis Current Visit: No Status: Acute Plan to address problem: Management as per Nephrology. Subjective Date of service: 12/22/18 Principal diagnosis: Severe Sepsis; Ac. Hypoxemic Resp failure; Anemia; Seizure; UTI; BPH Interval history: Patient is weak and contracted and has multiple pressure wounds. Patients general medical condition poor and unchanged. Patient Sleeping. Not follow commands. On room air at this time. No acute respiratory distress. O2 sat 93%. Patient running low grade temp. Has mild leukocytosis. Antibiotics as per infectious diseases. Objective Vital Signs - 12hr 12/22/18 12/22/18 12/22/18 01:53 02:21 07:21 Temperature 99.8 F H 98.9 F Pulse Rate 118 H 111 H Respiratory 18 20 Rate Blood Pressure 109/57 92/51 104/54 O2 Sat by Pulse 94 95 Oximetry Constitutional: no acute distress, asleep, appears uncomfortable Eyes: non-icteric ENT: oropharynx moist Neck: no lymphadenopathy, no JVD, other (mild stiffness / contracture) Effort: normal Ascultation: Bilateral: diminished breath sounds, rhonchi Percussion: Bilateral: not dull Cardiovascular: regular rate and rhythm Gastrointestinal: normoactive bowel sounds, soft, non-tender, non-distended Integumentary: rash Extremities: no cyanosis, no edema, pulses normal, other (Patient has pressure ulcer at multiple areas, including sacral area.) Neurologic: non-focal exam, pupils equal and round, CN II-XII normal, other (+ contractures) Psychiatric: mood appropriate, affect normal CBC and BMP: 12/22/18 05:42 12/22/18 05:42 ABG, PT/INR, D-dimer: ABG POC ABG pH 7.494 (7.35-7.45) H 11/01/18 15:27 POC ABG pCO2 34.5 (35-45) L 11/01/18 15:27 POC ABG pO2 139 (80-105) H 11/01/18 15:27 POC ABG HCO3 26.5 (22-26 mml/L) 11/01/18 15:27 POC ABG Total CO2 28 (23-27mmol/L) 11/01/18 15:27 POC ABG O2 Sat 99 11/01/18 15:27 PT/INR, D-dimer PT 16.3 Sec. (12.2-14.9) H 11/01/18 14:50 INR 1.35 (0.87-1.13) H 11/01/18 14:50 Abnormal lab findings: Abnormal Labs 11/01/18 11/01/18 11/01/18 14:50 14:50 14:50 WBC 15.3 H RBC 2.76 L Hgb 7.9 L Hct 23.5 L MCV MCH MCHC RDW 18.3 H Plt Count 567 H Lymph % (Auto) 6.5 L [place] % (Auto) 8.5 H Eos % (Auto) Lymph # 1.0 L [place] # 1.3 H Eos # Seg Neutrophils % 83.4 H Seg Neutrophils # 12.7 H PT 16.3 H INR 1.35 H POC ABG pH POC ABG pCO2 POC ABG pO2 VBG pH Sodium Potassium Chloride Carbon Dioxide BUN 49 H Creatinine Glucose 132 H POC Glucose Calcium Magnesium AST 90 H ALT 77 H Alkaline Phosphatase 350 H Total Creatine Kinase NT-Pro-B Natriuret Pep Albumin 1.6 L Urine WBC (Auto) Crossmatch 11/01/18 11/01/1811/01/19 14:50 14:50 15:27 WBC RBC Hgb Hct MCV MCH MCHC RDW Plt Count Lymph % (Auto) [place] % (Auto) Eos % (Auto) Lymph # [place] # Eos # Seg Neutrophils % Seg Neutrophils # PT INR POC ABG pH 7.494 H POC ABG pCO2 34.5 L POC ABG pO2 139 H VBG pH 7.499 H Sodium Potassium Chloride Carbon Dioxide BUN Creatinine Glucose POC Glucose Calcium Magnesium AST ALT Alkaline Phosphatase Total Creatine Kinase NT-Pro-B Natriuret Pep 6776 H Albumin Urine WBC (Auto) Crossmatch 11/01/18 11/03/18 11/03/18 15:57 03:41 03:41 WBC 12.8 H RBC 2.55 L Hgb 6.9 L Hct 22.2 L MCV MCH 27 L MCHC 31 L RDW 17.9 H Plt Count 519 H Lymph % (Auto) [place] % (Auto) Eos % (Auto) Lymph # [place] # Eos # Seg Neutrophils % Seg Neutrophils # PT INR POC ABG pH POC ABG pCO2 POC ABG pO2 VBG pH Sodium 147 H Potassium Chloride 110.3 H Carbon Dioxide BUN 55 H Creatinine Glucose POC Glucose Calcium Magnesium AST ALT Alkaline Phosphatase Total Creatine Kinase NT-Pro-B Natriuret Pep Albumin Urine WBC (Auto) > 182.0 H Crossmatch 11/03/18 11/04/18 11/04/18 12:51 05:12 05:12 WBC 11.5 H RBC 2.94 L Hgb 8.3 L Hct 25.3 L MCV MCH MCHC RDW 17.3 H Plt Count 514 H Lymph % (Auto) [place] % (Auto) Eos % (Auto) Lymph # [place] # Eos # Seg Neutrophils % Seg Neutrophils # PT INR POC ABG pH POC ABG pCO2 POC ABG pO2 VBG pH Sodium 147 H Potassium Chloride 112.4 H Carbon Dioxide BUN 52 H Creatinine Glucose POC Glucose Calcium Magnesium AST ALT Alkaline Phosphatase Total Creatine Kinase NT-Pro-B Natriuret Pep Albumin Urine WBC (Auto) Crossmatch See Detail 11/05/18 11/05/18 11/06/18 04:50 04:50 05:42 WBC RBC 3.03 L 2.80 L Hgb 8.7 L 7.9 L Hct 26.6 L 24.7 L MCV MCH MCHC RDW 17.1 H 17.0 H Plt Count 502 H 478 H Lymph % (Auto) 10.4 L [place] % (Auto) 8.6 H Eos % (Auto) 4.7 H Lymph # 1.0 L [place] # Eos # 0.5 H Seg Neutrophils % 75.6 H Seg Neutrophils # PT INR POC ABG pH POC ABG pCO2 POC ABG pO2 VBG pH Sodium 149 H Potassium Chloride 114.4 H Carbon Dioxide 21 L BUN 50 H Creatinine Glucose 108 H POC Glucose Calcium Magnesium AST ALT Alkaline Phosphatase Total Creatine Kinase NT-Pro-B Natriuret Pep Albumin Urine WBC (Auto) Crossmatch 11/06/18 11/11/18 11/12/18 05:42 18:54 00:22 WBC RBC Hgb Hct MCV MCH MCHC RDW Plt Count Lymph % (Auto) [place] % (Auto) Eos % (Auto) Lymph # [place] # Eos # Seg Neutrophils % Seg Neutrophils # PT INR POC ABG pH POC ABG pCO2 POC ABG pO2 VBG pH Sodium 149 H Potassium Chloride 113.4 H Carbon Dioxide BUN 50 H Creatinine Glucose 121 H POC Glucose 114 H 123 H Calcium Magnesium AST ALT Alkaline Phosphatase Total Creatine Kinase NT-Pro-B Natriuret Pep Albumin Urine WBC (Auto) Crossmatch 11/12/18 11/12/18 11/13/18 06:49 11:35 06:34 WBC RBC Hgb Hct MCV MCH MCHC RDW Plt Count Lymph % (Auto) [place] % (Auto) Eos % (Auto) Lymph # [place] # Eos # Seg Neutrophils % Seg Neutrophils # PT INR POC ABG pH POC ABG pCO2 POC ABG pO2 VBG pH Sodium Potassium Chloride Carbon Dioxide BUN Creatinine Glucose POC Glucose 129 H 123 H 128 H Calcium Magnesium AST ALT Alkaline Phosphatase Total Creatine Kinase NT-Pro-B Natriuret Pep Albumin Urine WBC (Auto) Crossmatch 11/13/18 11/13/18 11/13/18 09:26 09:26 15:13 WBC RBC 3.08 L Hgb 8.6 L Hct 27.3 L MCV MCH MCHC 31 L RDW 18.3 H Plt Count 504 H Lymph % (Auto) 11.7 L [place] % (Auto) 7.5 H Eos % (Auto) 7.0 H Lymph # [place] # Eos # 0.7 H Seg Neutrophils % 72.9 H Seg Neutrophils # PT INR POC ABG pH POC ABG pCO2 POC ABG pO2 VBG pH Sodium 153 H Potassium 6.3 H* 5.8 H Chloride 122.3 H Carbon Dioxide 21 L BUN 38 H Creatinine Glucose 112 H POC Glucose Calcium Magnesium AST ALT Alkaline Phosphatase Total Creatine Kinase NT-Pro-B Natriuret Pep Albumin Urine WBC (Auto) Crossmatch 11/13/18 11/13/18 11/14/18 22:10 23:45 13:17 WBC RBC Hgb Hct MCV MCH MCHC RDW Plt Count Lymph % (Auto) [place] % (Auto) Eos % (Auto) Lymph # [place] # Eos # Seg Neutrophils % Seg Neutrophils # PT INR POC ABG pH POC ABG pCO2 POC ABG pO2 VBG pH Sodium 155 H Potassium 5.3 H Chloride 122.3 H Carbon Dioxide BUN 35 H Creatinine Glucose 113 H POC Glucose 111 H 142 H Calcium Magnesium AST ALT Alkaline Phosphatase Total Creatine Kinase NT-Pro-B Natriuret Pep Albumin Urine WBC (Auto) Crossmatch 11/14/18 11/15/18 11/15/18 19:08 00:31 06:45 WBC RBC Hgb Hct MCV MCH MCHC RDW Plt Count Lymph % (Auto) [place] % (Auto) Eos % (Auto) Lymph # [place] # Eos # Seg Neutrophils % Seg Neutrophils # PT INR POC ABG pH POC ABG pCO2 POC ABG pO2 VBG pH Sodium Potassium Chloride Carbon Dioxide BUN Creatinine Glucose POC Glucose 116 H 125 H 131 H Calcium Magnesium AST ALT Alkaline Phosphatase Total Creatine Kinase NT-Pro-B Natriuret Pep Albumin Urine WBC (Auto) Crossmatch 11/15/18 11/15/18 11/15/18 07:13 07:13 19:03 WBC 13.2 H RBC 2.81 L Hgb 7.8 L Hct 24.5 L MCV MCH MCHC RDW 18.2 H Plt Count 454 H Lymph % (Auto) 9.0 L [place] % (Auto) 7.5 H Eos % (Auto) Lymph # [place] # 1.0 H Eos # 0.5 H Seg Neutrophils % 78.8 H Seg Neutrophils # 10.4 H PT INR POC ABG pH POC ABG pCO2 POC ABG pO2 VBG pH Sodium 149 H Potassium 5.2 H Chloride 117.2 H Carbon Dioxide BUN 38 H Creatinine Glucose 114 H POC Glucose 141 H Calcium Magnesium AST ALT Alkaline Phosphatase Total Creatine Kinase NT-Pro-B Natriuret Pep Albumin Urine WBC (Auto) Crossmatch 11/16/18 11/16/18 11/16/18 01:15 01:15 06:45 WBC RBC Hgb Hct MCV MCH MCHC RDW Plt Count Lymph % (Auto) [place] % (Auto) Eos % (Auto) Lymph # [place] # Eos # Seg Neutrophils % Seg Neutrophils # PT INR POC ABG pH POC ABG pCO2 POC ABG pO2 VBG pH Sodium Potassium 5.3 H Chloride Carbon Dioxide BUN Creatinine Glucose POC Glucose 129 H Calcium Magnesium 2.60 H AST ALT Alkaline Phosphatase Total Creatine Kinase NT-Pro-B Natriuret Pep Albumin Urine WBC (Auto) Crossmatch 11/16/18 11/16/18 11/17/18 13:20 18:02 00:16 WBC RBC Hgb Hct MCV MCH MCHC RDW Plt Count Lymph % (Auto) [place] % (Auto) Eos % (Auto) Lymph # [place] # Eos # Seg Neutrophils % Seg Neutrophils # PT INR POC ABG pH POC ABG pCO2 POC ABG pO2 VBG pH Sodium Potassium Chloride Carbon Dioxide BUN Creatinine Glucose POC Glucose 130 H 127 H 120 H Calcium Magnesium AST ALT Alkaline Phosphatase Total Creatine Kinase NT-Pro-B Natriuret Pep Albumin Urine WBC (Auto) Crossmatch 11/17/18 11/17/18 11/17/18 05:48 08:02 08:02 WBC RBC Hgb 7.5 L Hct 23.5 L MCV MCH MCHC RDW Plt Count Lymph % (Auto) [place] % (Auto) Eos % (Auto) Lymph # [place] # Eos # Seg Neutrophils % Seg Neutrophils # PT INR POC ABG pH POC ABG pCO2 POC ABG pO2 VBG pH Sodium Potassium Chloride 110.1 H Carbon Dioxide 21 L BUN 38 H Creatinine Glucose 121 H POC Glucose 130 H Calcium Magnesium AST ALT Alkaline Phosphatase Total Creatine Kinase NT-Pro-B Natriuret Pep Albumin Urine WBC (Auto) Crossmatch 11/17/18 11/17/18 11/18/18 12:17 16:48 06:00 WBC RBC Hgb Hct MCV MCH MCHC RDW Plt Count Lymph % (Auto) [place] % (Auto) Eos % (Auto) Lymph # [place] # Eos # Seg Neutrophils % Seg Neutrophils # PT INR POC ABG pH POC ABG pCO2 POC ABG pO2 VBG pH Sodium Potassium Chloride Carbon Dioxide BUN Creatinine Glucose POC Glucose 140 H 120 H 137 H Calcium Magnesium AST ALT Alkaline Phosphatase Total Creatine Kinase NT-Pro-B Natriuret Pep Albumin Urine WBC (Auto) Crossmatch 11/19/18 11/19/18 11/19/18 00:20 05:35 06:11 WBC RBC Hgb Hct MCV MCH MCHC RDW Plt Count Lymph % (Auto) [place] % (Auto) Eos % (Auto) Lymph # [place] # Eos # Seg Neutrophils % Seg Neutrophils # PT INR POC ABG pH POC ABG pCO2 POC ABG pO2 VBG pH Sodium Potassium Chloride Carbon Dioxide BUN Creatinine Glucose POC Glucose 111 H 126 H Calcium Magnesium AST ALT Alkaline Phosphatase Total Creatine Kinase 53 L NT-Pro-B Natriuret Pep Albumin Urine WBC (Auto) Crossmatch 11/19/18 11/19/18 11/20/18 11:37 23:43 06:52 WBC RBC Hgb Hct MCV MCH MCHC RDW Plt Count Lymph % (Auto) [place] % (Auto) Eos % (Auto) Lymph # [place] # Eos # Seg Neutrophils % Seg Neutrophils # PT INR POC ABG pH POC ABG pCO2 POC ABG pO2 VBG pH Sodium Potassium Chloride Carbon Dioxide BUN Creatinine Glucose POC Glucose 139 H 145 H 125 H Calcium Magnesium AST ALT Alkaline Phosphatase Total Creatine Kinase NT-Pro-B Natriuret Pep Albumin Urine WBC (Auto) Crossmatch 11/20/18 11/20/18 11/20/18 09:55 09:55 11:49 WBC RBC 3.04 L Hgb 8.4 L Hct 26.1 L MCV MCH MCHC RDW 17.5 H Plt Count Lymph % (Auto) [place] % (Auto) Eos % (Auto) Lymph # [place] # Eos # Seg Neutrophils % Seg Neutrophils # PT INR POC ABG pH POC ABG pCO2 POC ABG pO2 VBG pH Sodium 149 H Potassium Chloride 114.5 H Carbon Dioxide 21 L BUN 35 H Creatinine Glucose 127 H POC Glucose 150 H Calcium Magnesium AST ALT Alkaline Phosphatase Total Creatine Kinase NT-Pro-B Natriuret Pep Albumin Urine WBC (Auto) Crossmatch 11/20/18 11/20/18 11/21/18 18:02 23:49 06:14 WBC RBC Hgb Hct MCV MCH MCHC RDW Plt Count Lymph % (Auto) [place] % (Auto) Eos % (Auto) Lymph # [place] # Eos # Seg Neutrophils % Seg Neutrophils # PT INR POC ABG pH POC ABG pCO2 POC ABG pO2 VBG pH Sodium Potassium Chloride Carbon Dioxide BUN Creatinine Glucose POC Glucose 131 H 137 H 133 H Calcium Magnesium AST ALT Alkaline Phosphatase Total Creatine Kinase NT-Pro-B Natriuret Pep Albumin Urine WBC (Auto) Crossmatch 11/21/18 11/21/18 11/21/18 10:00 12:09 18:04 WBC RBC Hgb Hct MCV MCH MCHC RDW Plt Count Lymph % (Auto) [place] % (Auto) Eos % (Auto) Lymph # [place] # Eos # Seg Neutrophils % Seg Neutrophils # PT INR POC ABG pH POC ABG pCO2 POC ABG pO2 VBG pH Sodium Potassium Chloride 110.6 H Carbon Dioxide BUN 31 H Creatinine Glucose 119 H POC Glucose 116 H 126 H Calcium Magnesium AST ALT Alkaline Phosphatase Total Creatine Kinase NT-Pro-B Natriuret Pep Albumin Urine WBC (Auto) Crossmatch 11/22/18 11/22/18 11/22/18 00:14 05:47 06:23 WBC RBC Hgb Hct MCV MCH MCHC RDW Plt Count Lymph % (Auto) [place] % (Auto) Eos % (Auto) Lymph # [place] # Eos # Seg Neutrophils % Seg Neutrophils # PT INR POC ABG pH POC ABG pCO2 POC ABG pO2 VBG pH Sodium Potassium Chloride 107.6 H Carbon Dioxide BUN 32 H Creatinine 0.7 L Glucose 116 H POC Glucose 122 H 119 H Calcium Magnesium AST ALT Alkaline Phosphatase Total Creatine Kinase NT-Pro-B Natriuret Pep Albumin Urine WBC (Auto) Crossmatch 11/22/18 11/22/18 11/22/18 08:40 12:19 17:39 WBC RBC Hgb Hct MCV MCH MCHC RDW Plt Count Lymph % (Auto) [place] % (Auto) Eos % (Auto) Lymph # [place] # Eos # Seg Neutrophils % Seg Neutrophils # PT INR POC ABG pH POC ABG pCO2 POC ABG pO2 VBG pH Sodium Potassium Chloride Carbon Dioxide BUN Creatinine Glucose POC Glucose 150 H 111 H 108 H Calcium Magnesium AST ALT Alkaline Phosphatase Total Creatine Kinase NT-Pro-B Natriuret Pep Albumin Urine WBC (Auto) Crossmatch 11/23/18 11/23/18 11/23/18 00:36 05:37 05:56 WBC RBC Hgb Hct MCV MCH MCHC RDW Plt Count Lymph % (Auto) [place] % (Auto) Eos % (Auto) Lymph # [place] # Eos # Seg Neutrophils % Seg Neutrophils # PT INR POC ABG pH POC ABG pCO2 POC ABG pO2 VBG pH Sodium 136 L Potassium Chloride Carbon Dioxide BUN 30 H Creatinine 0.7 L Glucose 103 H POC Glucose 125 H 122 H Calcium Magnesium 2.50 H AST ALT Alkaline Phosphatase Total Creatine Kinase NT-Pro-B Natriuret Pep Albumin Urine WBC (Auto) Crossmatch 11/23/18 11/23/18 11/23/18 11:56 17:39 23:40 WBC RBC Hgb Hct MCV MCH MCHC RDW Plt Count Lymph % (Auto) [place] % (Auto) Eos % (Auto) Lymph # [place] # Eos # Seg Neutrophils % Seg Neutrophils # PT INR POC ABG pH POC ABG pCO2 POC ABG pO2 VBG pH Sodium Potassium Chloride Carbon Dioxide BUN Creatinine Glucose POC Glucose 121 H 113 H 117 H Calcium Magnesium AST ALT Alkaline Phosphatase Total Creatine Kinase NT-Pro-B Natriuret Pep Albumin Urine WBC (Auto) Crossmatch 11/24/18 11/24/18 11/24/18 05:13 12:00 18:13 WBC RBC Hgb Hct MCV MCH MCHC RDW Plt Count Lymph % (Auto) [place] % (Auto) Eos % (Auto) Lymph # [place] # Eos # Seg Neutrophils % Seg Neutrophils # PT INR POC ABG pH POC ABG pCO2 POC ABG pO2 VBG pH Sodium Potassium Chloride Carbon Dioxide BUN Creatinine Glucose POC Glucose 143 H 123 H 124 H Calcium Magnesium AST ALT Alkaline Phosphatase Total Creatine Kinase NT-Pro-B Natriuret Pep Albumin Urine WBC (Auto) Crossmatch 11/24/18 11/25/18 11/25/18 23:34 05:25 05:25 WBC RBC 2.48 L Hgb 6.8 L Hct 21.2 L MCV MCH MCHC RDW 17.7 H Plt Count Lymph % (Auto) [place] % (Auto) Eos % (Auto) Lymph # [place] # Eos # Seg Neutrophils % Seg Neutrophils # PT INR POC ABG pH POC ABG pCO2 POC ABG pO2 VBG pH Sodium Potassium Chloride 108.8 H Carbon Dioxide BUN 30 H Creatinine 0.7 L Glucose 112 H POC Glucose 115 H Calcium Magnesium AST ALT Alkaline Phosphatase Total Creatine Kinase NT-Pro-B Natriuret Pep Albumin Urine WBC (Auto) Crossmatch 11/25/18 11/25/18 11/25/18 06:46 11:15 11:28 WBC RBC Hgb 7.4 L Hct 23.0 L MCV MCH MCHC RDW Plt Count Lymph % (Auto) [place] % (Auto) Eos % (Auto) Lymph # [place] # Eos # Seg Neutrophils % Seg Neutrophils # PT INR POC ABG pH POC ABG pCO2 POC ABG pO2 VBG pH Sodium Potassium Chloride Carbon Dioxide BUN Creatinine Glucose POC Glucose 133 H 127 H Calcium Magnesium AST ALT Alkaline Phosphatase Total Creatine Kinase NT-Pro-B Natriuret Pep Albumin Urine WBC (Auto) Crossmatch 11/25/18 11/25/18 11/25/18 15:28 17:32 23:45 WBC RBC Hgb Hct MCV MCH MCHC RDW Plt Count Lymph % (Auto) [place] % (Auto) Eos % (Auto) Lymph # [place] # Eos # Seg Neutrophils % Seg Neutrophils # PT INR POC ABG pH POC ABG pCO2 POC ABG pO2 VBG pH Sodium Potassium Chloride Carbon Dioxide BUN Creatinine Glucose POC Glucose 115 H 130 H Calcium Magnesium AST ALT Alkaline Phosphatase Total Creatine Kinase NT-Pro-B Natriuret Pep Albumin Urine WBC (Auto) Crossmatch See Detail 11/26/18 11/26/18 11/26/18 06:13 06:20 06:20 WBC RBC 2.76 L Hgb 7.7 L Hct 23.4 L MCV MCH MCHC RDW 17.5 H Plt Count Lymph % (Auto) [place] % (Auto) Eos % (Auto) Lymph # [place] # Eos # Seg Neutrophils % Seg Neutrophils # PT INR POC ABG pH POC ABG pCO2 POC ABG pO2 VBG pH Sodium Potassium Chloride 109.9 H Carbon Dioxide BUN 30 H Creatinine 0.6 L Glucose 121 H POC Glucose 129 H Calcium Magnesium AST ALT Alkaline Phosphatase Total Creatine Kinase NT-Pro-B Natriuret Pep Albumin Urine WBC (Auto) Crossmatch 11/26/18 11/26/18 11/27/18 12:06 16:35 06:04 WBC RBC Hgb Hct MCV MCH MCHC RDW Plt Count Lymph % (Auto) [place] % (Auto) Eos % (Auto) Lymph # [place] # Eos # Seg Neutrophils % Seg Neutrophils # PT INR POC ABG pH POC ABG pCO2 POC ABG pO2 VBG pH Sodium Potassium Chloride Carbon Dioxide BUN Creatinine Glucose POC Glucose 139 H 107 H 126 H Calcium Magnesium AST ALT Alkaline Phosphatase Total Creatine Kinase NT-Pro-B Natriuret Pep Albumin Urine WBC (Auto) Crossmatch 11/27/18 11/27/18 11/28/18 13:14 17:47 07:03 WBC RBC Hgb Hct MCV MCH MCHC RDW Plt Count Lymph % (Auto) [place] % (Auto) Eos % (Auto) Lymph # [place] # Eos # Seg Neutrophils % Seg Neutrophils # PT INR POC ABG pH POC ABG pCO2 POC ABG pO2 VBG pH Sodium Potassium Chloride Carbon Dioxide BUN Creatinine Glucose POC Glucose 130 H 115 H 118 H Calcium Magnesium AST ALT Alkaline Phosphatase Total Creatine Kinase NT-Pro-B Natriuret Pep Albumin Urine WBC (Auto) Crossmatch 11/28/18 11/29/18 11/29/18 11:38 00:35 04:56 WBC RBC Hgb Hct MCV MCH MCHC RDW Plt Count Lymph % (Auto) [place] % (Auto) Eos % (Auto) Lymph # [place] # Eos # Seg Neutrophils % Seg Neutrophils # PT INR POC ABG pH POC ABG pCO2 POC ABG pO2 VBG pH Sodium Potassium Chloride Carbon Dioxide BUN Creatinine Glucose POC Glucose 126 H 107 H Calcium Magnesium AST ALT Alkaline Phosphatase Total Creatine Kinase 50 L NT-Pro-B Natriuret Pep Albumin Urine WBC (Auto) Crossmatch 11/29/18 11/29/18 11/29/18 05:49 11:46 18:17 WBC RBC Hgb Hct MCV MCH MCHC RDW Plt Count Lymph % (Auto) [place] % (Auto) Eos % (Auto) Lymph # [place] # Eos # Seg Neutrophils % Seg Neutrophils # PT INR POC ABG pH POC ABG pCO2 POC ABG pO2 VBG pH Sodium Potassium Chloride Carbon Dioxide BUN Creatinine Glucose POC Glucose 128 H 140 H 115 H Calcium Magnesium AST ALT Alkaline Phosphatase Total Creatine Kinase NT-Pro-B Natriuret Pep Albumin Urine WBC (Auto) Crossmatch 11/30/18 11/30/18 11/30/18 00:00 03:30 03:30 WBC RBC 2.97 L Hgb 8.1 L Hct 25.5 L MCV MCH 27 L MCHC RDW 17.7 H Plt Count Lymph % (Auto) 9.2 L [place] % (Auto) 10.0 H Eos % (Auto) 4.6 H Lymph # 1.0 L [place] # 1.1 H Eos # 0.5 H Seg Neutrophils % 75.6 H Seg Neutrophils # 8.4 H PT INR POC ABG pH POC ABG pCO2 POC ABG pO2 VBG pH Sodium Potassium Chloride Carbon Dioxide BUN 31 H Creatinine 0.7 L Glucose POC Glucose 120 H Calcium Magnesium AST ALT Alkaline Phosphatase Total Creatine Kinase NT-Pro-B Natriuret Pep Albumin Urine WBC (Auto) Crossmatch 11/30/18 11/30/18 11/30/18 06:54 11:45 16:59 WBC RBC Hgb Hct MCV MCH MCHC RDW Plt Count Lymph % (Auto) [place] % (Auto) Eos % (Auto) Lymph # [place] # Eos # Seg Neutrophils % Seg Neutrophils # PT INR POC ABG pH POC ABG pCO2 POC ABG pO2 VBG pH Sodium Potassium Chloride Carbon Dioxide BUN Creatinine Glucose POC Glucose 120 H 123 H 111 H Calcium Magnesium AST ALT Alkaline Phosphatase Total Creatine Kinase NT-Pro-B Natriuret Pep Albumin Urine WBC (Auto) Crossmatch 12/01/18 12/01/18 12/01/18 00:20 05:58 11:33 WBC RBC Hgb Hct MCV MCH MCHC RDW Plt Count Lymph % (Auto) [place] % (Auto) Eos % (Auto) Lymph # [place] # Eos # Seg Neutrophils % Seg Neutrophils # PT INR POC ABG pH POC ABG pCO2 POC ABG pO2 VBG pH Sodium Potassium Chloride Carbon Dioxide BUN Creatinine Glucose POC Glucose 113 H 127 H 138 H Calcium Magnesium AST ALT Alkaline Phosphatase Total Creatine Kinase NT-Pro-B Natriuret Pep Albumin Urine WBC (Auto) Crossmatch 12/02/18 12/03/18 12/03/18 00:33 05:07 05:07 WBC RBC 2.93 L Hgb 8.2 L Hct 24.9 L MCV MCH MCHC RDW 17.0 H Plt Count 470 H Lymph % (Auto) 9.3 L [place] % (Auto) 8.6 H Eos % (Auto) 5.4 H Lymph # 0.9 L [place] # Eos # 0.5 H Seg Neutrophils % 75.8 H Seg Neutrophils # PT INR POC ABG pH POC ABG pCO2 POC ABG pO2 VBG pH Sodium Potassium Chloride Carbon Dioxide BUN 30 H Creatinine 0.6 L Glucose 115 H POC Glucose 110 H Calcium Magnesium AST ALT Alkaline Phosphatase Total Creatine Kinase NT-Pro-B Natriuret Pep Albumin Urine WBC (Auto) Crossmatch 12/03/18 12/03/18 12/03/18 05:58 11:49 17:44 WBC RBC Hgb Hct MCV MCH MCHC RDW Plt Count Lymph % (Auto) [place] % (Auto) Eos % (Auto) Lymph # [place] # Eos # Seg Neutrophils % Seg Neutrophils # PT INR POC ABG pH POC ABG pCO2 POC ABG pO2 VBG pH Sodium Potassium Chloride Carbon Dioxide BUN Creatinine Glucose POC Glucose 127 H 138 H 127 H Calcium Magnesium AST ALT Alkaline Phosphatase Total Creatine Kinase NT-Pro-B Natriuret Pep Albumin Urine WBC (Auto) Crossmatch 12/05/18 12/05/18 12/05/18 00:22 05:53 17:18 WBC RBC Hgb Hct MCV MCH MCHC RDW Plt Count Lymph % (Auto) [place] % (Auto) Eos % (Auto) Lymph # [place] # Eos # Seg Neutrophils % Seg Neutrophils # PT INR POC ABG pH POC ABG pCO2 POC ABG pO2 VBG pH Sodium Potassium Chloride Carbon Dioxide BUN Creatinine Glucose POC Glucose 124 H 121 H 112 H Calcium Magnesium AST ALT Alkaline Phosphatase Total Creatine Kinase NT-Pro-B Natriuret Pep Albumin Urine WBC (Auto) Crossmatch 12/06/18 12/06/18 12/06/18 00:07 06:16 11:43 WBC RBC Hgb Hct MCV MCH MCHC RDW Plt Count Lymph % (Auto) [place] % (Auto) Eos % (Auto) Lymph # [place] # Eos # Seg Neutrophils % Seg Neutrophils # PT INR POC ABG pH POC ABG pCO2 POC ABG pO2 VBG pH Sodium Potassium Chloride Carbon Dioxide BUN Creatinine Glucose POC Glucose 111 H 117 H 121 H Calcium Magnesium AST ALT Alkaline Phosphatase Total Creatine Kinase NT-Pro-B Natriuret Pep Albumin Urine WBC (Auto) Crossmatch 12/06/18 12/07/18 12/07/18 20:57 06:41 12:09 WBC RBC Hgb Hct MCV MCH MCHC RDW Plt Count Lymph % (Auto) [place] % (Auto) Eos % (Auto) Lymph # [place] # Eos # Seg Neutrophils % Seg Neutrophils # PT INR POC ABG pH POC ABG pCO2 POC ABG pO2 VBG pH Sodium Potassium Chloride 107.2 H Carbon Dioxide BUN 27 H Creatinine 0.7 L Glucose POC Glucose 128 H 137 H Calcium Magnesium 2.50 H AST ALT Alkaline Phosphatase Total Creatine Kinase NT-Pro-B Natriuret Pep Albumin Urine WBC (Auto) Crossmatch 12/07/18 12/08/18 12/08/18 19:29 05:44 12:27 WBC RBC Hgb Hct MCV MCH MCHC RDW Plt Count Lymph % (Auto) [place] % (Auto) Eos % (Auto) Lymph # [place] # Eos # Seg Neutrophils % Seg Neutrophils # PT INR POC ABG pH POC ABG pCO2 POC ABG pO2 VBG pH Sodium Potassium Chloride Carbon Dioxide BUN Creatinine Glucose POC Glucose 110 H 126 H 130 H Calcium Magnesium AST ALT Alkaline Phosphatase Total Creatine Kinase NT-Pro-B Natriuret Pep Albumin Urine WBC (Auto) Crossmatch 12/08/18 12/09/18 12/09/18 17:44 00:20 06:42 WBC RBC Hgb Hct MCV MCH MCHC RDW Plt Count Lymph % (Auto) [place] % (Auto) Eos % (Auto) Lymph # [place] # Eos # Seg Neutrophils % Seg Neutrophils # PT INR POC ABG pH POC ABG pCO2 POC ABG pO2 VBG pH Sodium Potassium Chloride Carbon Dioxide BUN Creatinine Glucose POC Glucose 113 H 121 H 124 H Calcium Magnesium AST ALT Alkaline Phosphatase Total Creatine Kinase NT-Pro-B Natriuret Pep Albumin Urine WBC (Auto) Crossmatch 12/09/18 12/09/18 12/09/18 12:24 18:41 23:48 WBC RBC Hgb Hct MCV MCH MCHC RDW Plt Count Lymph % (Auto) [place] % (Auto) Eos % (Auto) Lymph # [place] # Eos # Seg Neutrophils % Seg Neutrophils # PT INR POC ABG pH POC ABG pCO2 POC ABG pO2 VBG pH Sodium Potassium Chloride Carbon Dioxide BUN Creatinine Glucose POC Glucose 114 H 109 H 128 H Calcium Magnesium AST ALT Alkaline Phosphatase Total Creatine Kinase NT-Pro-B Natriuret Pep Albumin Urine WBC (Auto) Crossmatch 12/10/18 12/10/18 12/11/18 07:07 11:28 00:24 WBC RBC Hgb Hct MCV MCH MCHC RDW Plt Count Lymph % (Auto) [place] % (Auto) Eos % (Auto) Lymph # [place] # Eos # Seg Neutrophils % Seg Neutrophils # PT INR POC ABG pH POC ABG pCO2 POC ABG pO2 VBG pH Sodium Potassium Chloride Carbon Dioxide BUN Creatinine Glucose POC Glucose 111 H 110 H 112 H Calcium Magnesium AST ALT Alkaline Phosphatase Total Creatine Kinase NT-Pro-B Natriuret Pep Albumin Urine WBC (Auto) Crossmatch 12/11/18 12/11/18 12/11/18 06:44 11:53 18:17 WBC RBC Hgb Hct MCV MCH MCHC RDW Plt Count Lymph % (Auto) [place] % (Auto) Eos % (Auto) Lymph # [place] # Eos # Seg Neutrophils % Seg Neutrophils # PT INR POC ABG pH POC ABG pCO2 POC ABG pO2 VBG pH Sodium Potassium Chloride Carbon Dioxide BUN Creatinine Glucose POC Glucose 111 H 132 H 133 H Calcium Magnesium AST ALT Alkaline Phosphatase Total Creatine Kinase NT-Pro-B Natriuret Pep Albumin Urine WBC (Auto) Crossmatch 12/11/18 12/12/18 12/12/18 23:58 00:05 06:11 WBC RBC 2.85 L Hgb 7.8 L Hct 24.4 L MCV MCH 27 L MCHC RDW 17.4 H Plt Count 459 H Lymph % (Auto) [place] % (Auto) 11.2 H Eos % (Auto) 5.4 H Lymph # [place] # 1.1 H Eos # 0.5 H Seg Neutrophils % Seg Neutrophils # PT INR POC ABG pH POC ABG pCO2 POC ABG pO2 VBG pH Sodium Potassium Chloride Carbon Dioxide BUN Creatinine Glucose POC Glucose 126 H 144 H Calcium Magnesium AST ALT Alkaline Phosphatase Total Creatine Kinase NT-Pro-B Natriuret Pep Albumin Urine WBC (Auto) Crossmatch 12/12/18 12/12/18 12/13/18 11:42 18:36 00:12 WBC RBC Hgb Hct MCV MCH MCHC RDW Plt Count Lymph % (Auto) [place] % (Auto) Eos % (Auto) Lymph # [place] # Eos # Seg Neutrophils % Seg Neutrophils # PT INR POC ABG pH POC ABG pCO2 POC ABG pO2 VBG pH Sodium Potassium Chloride Carbon Dioxide BUN Creatinine Glucose POC Glucose 106 H 117 H 115 H Calcium Magnesium AST ALT Alkaline Phosphatase Total Creatine Kinase NT-Pro-B Natriuret Pep Albumin Urine WBC (Auto) Crossmatch 12/13/18 12/13/18 12/13/18 05:58 11:52 23:57 WBC RBC Hgb Hct MCV MCH MCHC RDW Plt Count Lymph % (Auto) [place] % (Auto) Eos % (Auto) Lymph # [place] # Eos # Seg Neutrophils % Seg Neutrophils # PT INR POC ABG pH POC ABG pCO2 POC ABG pO2 VBG pH Sodium Potassium Chloride Carbon Dioxide BUN Creatinine Glucose POC Glucose 122 H 129 H 125 H Calcium Magnesium AST ALT Alkaline Phosphatase Total Creatine Kinase NT-Pro-B Natriuret Pep Albumin Urine WBC (Auto) Crossmatch 12/14/18 12/14/18 12/14/18 04:44 04:44 05:44 WBC RBC 2.56 L Hgb 7.2 L Hct 22.1 L MCV MCH MCHC RDW 17.8 H Plt Count 473 H Lymph % (Auto) [place] % (Auto) 11.5 H Eos % (Auto) 4.8 H Lymph # [place] # 1.1 H Eos # Seg Neutrophils % Seg Neutrophils # PT INR POC ABG pH POC ABG pCO2 POC ABG pO2 VBG pH Sodium 151 H Potassium Chloride 116.7 H Carbon Dioxide BUN 40 H Creatinine Glucose 114 H POC Glucose 117 H Calcium Magnesium AST 80 H ALT 67 H Alkaline Phosphatase 247 H Total Creatine Kinase NT-Pro-B Natriuret Pep Albumin 1.9 L Urine WBC (Auto) Crossmatch 12/14/18 12/15/18 12/15/18 11:29 00:01 05:13 WBC RBC 2.68 L Hgb 7.4 L Hct 23.1 L MCV MCH MCHC RDW 17.6 H Plt Count 454 H Lymph % (Auto) 13.3 L [place] % (Auto) 9.7 H Eos % (Auto) 6.9 H Lymph # [place] # Eos # 0.6 H Seg Neutrophils % Seg Neutrophils # PT INR POC ABG pH POC ABG pCO2 POC ABG pO2 VBG pH Sodium Potassium Chloride Carbon Dioxide BUN Creatinine Glucose POC Glucose 115 H 113 H Calcium Magnesium AST ALT Alkaline Phosphatase Total Creatine Kinase NT-Pro-B Natriuret Pep Albumin Urine WBC (Auto) Crossmatch 12/15/18 12/15/18 12/15/18 05:13 06:31 11:31 WBC RBC Hgb Hct MCV MCH MCHC RDW Plt Count Lymph % (Auto) [place] % (Auto) Eos % (Auto) Lymph # [place] # Eos # Seg Neutrophils % Seg Neutrophils # PT INR POC ABG pH POC ABG pCO2 POC ABG pO2 VBG pH Sodium 151 H Potassium Chloride 116.4 H Carbon Dioxide BUN 39 H Creatinine Glucose 110 H POC Glucose 130 H 127 H Calcium Magnesium AST 85 H ALT 78 H Alkaline Phosphatase 255 H Total Creatine Kinase NT-Pro-B Natriuret Pep Albumin 1.9 L Urine WBC (Auto) Crossmatch 12/15/18 12/16/18 12/16/18 17:54 00:27 00:33 WBC RBC Hgb Hct MCV MCH MCHC RDW Plt Count Lymph % (Auto) [place] % (Auto) Eos % (Auto) Lymph # [place] # Eos # Seg Neutrophils % Seg Neutrophils # PT INR POC ABG pH POC ABG pCO2 POC ABG pO2 VBG pH Sodium Potassium Chloride Carbon Dioxide BUN Creatinine Glucose POC Glucose 122 H 131 H Calcium Magnesium AST ALT Alkaline Phosphatase Total Creatine Kinase 50 L NT-Pro-B Natriuret Pep Albumin Urine WBC (Auto) Crossmatch 12/16/18 12/16/18 12/16/18 05:31 11:31 17:22 WBC RBC Hgb Hct MCV MCH MCHC RDW Plt Count Lymph % (Auto) [place] % (Auto) Eos % (Auto) Lymph # [place] # Eos # Seg Neutrophils % Seg Neutrophils # PT INR POC ABG pH POC ABG pCO2 POC ABG pO2 VBG pH Sodium Potassium Chloride Carbon Dioxide BUN Creatinine Glucose POC Glucose 138 H 121 H 114 H Calcium Magnesium AST ALT Alkaline Phosphatase Total Creatine Kinase NT-Pro-B Natriuret Pep Albumin Urine WBC (Auto) Crossmatch 12/16/18 12/17/18 12/17/18 23:56 05:01 05:01 WBC 11.1 H RBC 2.96 L Hgb 7.9 L Hct 25.7 L MCV MCH 27 L MCHC 31 L RDW 17.9 H Plt Count 479 H Lymph % (Auto) 11.3 L [place] % (Auto) 7.5 H Eos % (Auto) 4.5 H Lymph # [place] # Eos # 0.5 H Seg Neutrophils % 75.9 H Seg Neutrophils # 8.4 H PT INR POC ABG pH POC ABG pCO2 POC ABG pO2 VBG pH Sodium 155 H Potassium Chloride 121.2 H Carbon Dioxide BUN 41 H Creatinine Glucose 122 H POC Glucose 137 H Calcium Magnesium AST 97 H ALT 99 H Alkaline Phosphatase 279 H Total Creatine Kinase NT-Pro-B Natriuret Pep Albumin 1.8 L Urine WBC (Auto) Crossmatch 12/17/18 12/17/18 12/18/18 11:52 18:17 00:17 WBC RBC Hgb Hct MCV MCH MCHC RDW Plt Count Lymph % (Auto) [place] % (Auto) Eos % (Auto) Lymph # [place] # Eos # Seg Neutrophils % Seg Neutrophils # PT INR POC ABG pH POC ABG pCO2 POC ABG pO2 VBG pH Sodium Potassium Chloride Carbon Dioxide BUN Creatinine Glucose POC Glucose 142 H 140 H 160 H Calcium Magnesium AST ALT Alkaline Phosphatase Total Creatine Kinase NT-Pro-B Natriuret Pep Albumin Urine WBC (Auto) Crossmatch 12/18/18 12/18/18 12/18/18 05:39 05:40 05:40 WBC 11.7 H RBC 2.76 L Hgb 7.5 L Hct 23.8 L MCV MCH 27 L MCHC 31 L RDW 17.8 H Plt Count Lymph % (Auto) [place] % (Auto) Eos % (Auto) Lymph # [place] # Eos # Seg Neutrophils % Seg Neutrophils # PT INR POC ABG pH POC ABG pCO2 POC ABG pO2 VBG pH Sodium 153 H Potassium Chloride 117.6 H Carbon Dioxide BUN 48 H Creatinine Glucose 122 H POC Glucose 138 H Calcium Magnesium AST ALT Alkaline Phosphatase Total Creatine Kinase NT-Pro-B Natriuret Pep Albumin Urine WBC (Auto) Crossmatch 12/18/18 12/18/18 12/19/18 11:32 17:26 00:38 WBC RBC Hgb Hct MCV MCH MCHC RDW Plt Count Lymph % (Auto) [place] % (Auto) Eos % (Auto) Lymph # [place] # Eos # Seg Neutrophils % Seg Neutrophils # PT INR POC ABG pH POC ABG pCO2 POC ABG pO2 VBG pH Sodium Potassium Chloride Carbon Dioxide BUN Creatinine Glucose POC Glucose 136 H 125 H 126 H Calcium Magnesium AST ALT Alkaline Phosphatase Total Creatine Kinase NT-Pro-B Natriuret Pep Albumin Urine WBC (Auto) Crossmatch 12/19/18 12/19/18 12/19/18 05:22 05:22 06:19 WBC 12.2 H RBC 2.86 L Hgb 7.6 L Hct 24.4 L MCV MCH 27 L MCHC 31 L RDW 17.8 H Plt Count Lymph % (Auto) [place] % (Auto) Eos % (Auto) Lymph # [place] # Eos # Seg Neutrophils % Seg Neutrophils # PT INR POC ABG pH POC ABG pCO2 POC ABG pO2 VBG pH Sodium Potassium 5.9 H D Chloride 109.7 H Carbon Dioxide BUN 45 H Creatinine Glucose 107 H POC Glucose 136 H Calcium 8.3 L Magnesium AST ALT Alkaline Phosphatase Total Creatine Kinase NT-Pro-B Natriuret Pep Albumin Urine WBC (Auto) Crossmatch 12/19/18 12/19/18 12/19/18 08:23 11:44 17:09 WBC RBC Hgb Hct MCV MCH MCHC RDW Plt Count Lymph % (Auto) [place] % (Auto) Eos % (Auto) Lymph # [place] # Eos # Seg Neutrophils % Seg Neutrophils # PT INR POC ABG pH POC ABG pCO2 POC ABG pO2 VBG pH Sodium Potassium Chloride 107.7 H Carbon Dioxide BUN 42 H Creatinine Glucose 118 H POC Glucose 130 H 118 H Calcium Magnesium AST ALT Alkaline Phosphatase Total Creatine Kinase NT-Pro-B Natriuret Pep Albumin Urine WBC (Auto) Crossmatch 12/19/18 12/20/18 12/20/18 23:59 05:52 06:24 WBC RBC Hgb Hct MCV MCH MCHC RDW Plt Count Lymph % (Auto) [place] % (Auto) Eos % (Auto) Lymph # [place] # Eos # Seg Neutrophils % Seg Neutrophils # PT INR POC ABG pH POC ABG pCO2 POC ABG pO2 VBG pH Sodium Potassium 5.2 H Chloride 107.2 H Carbon Dioxide 21 L BUN 44 H Creatinine Glucose 118 H POC Glucose 150 H 138 H Calcium Magnesium AST ALT Alkaline Phosphatase Total Creatine Kinase NT-Pro-B Natriuret Pep Albumin Urine WBC (Auto) Crossmatch 12/20/18 12/20/18 12/21/18 11:34 17:10 00:07 WBC RBC Hgb Hct MCV MCH MCHC RDW Plt Count Lymph % (Auto) [place] % (Auto) Eos % (Auto) Lymph # [place] # Eos # Seg Neutrophils % Seg Neutrophils # PT INR POC ABG pH POC ABG pCO2 POC ABG pO2 VBG pH Sodium Potassium Chloride Carbon Dioxide BUN Creatinine Glucose POC Glucose 134 H 141 H 145 H Calcium Magnesium AST ALT Alkaline Phosphatase Total Creatine Kinase NT-Pro-B Natriuret Pep Albumin Urine WBC (Auto) Crossmatch 12/21/18 12/21/18 12/21/18 05:37 05:37 06:58 WBC 12.3 H RBC 2.67 L Hgb 7.1 L Hct 22.4 L MCV MCH 27 L MCHC RDW 17.5 H Plt Count Lymph % (Auto) [place] % (Auto) Eos % (Auto) Lymph # [place] # Eos # Seg Neutrophils % Seg Neutrophils # PT INR POC ABG pH POC ABG pCO2 POC ABG pO2 VBG pH Sodium Potassium Chloride Carbon Dioxide BUN 42 H Creatinine Glucose 127 H POC Glucose 152 H Calcium Magnesium AST ALT Alkaline Phosphatase Total Creatine Kinase NT-Pro-B Natriuret Pep Albumin Urine WBC (Auto) Crossmatch 12/21/18 12/21/18 12/22/18 12:06 17:43 00:11 WBC RBC Hgb Hct MCV MCH MCHC RDW Plt Count Lymph % (Auto) [place] % (Auto) Eos % (Auto) Lymph # [place] # Eos # Seg Neutrophils % Seg Neutrophils # PT INR POC ABG pH POC ABG pCO2 POC ABG pO2 VBG pH Sodium Potassium Chloride Carbon Dioxide BUN Creatinine Glucose POC Glucose 140 H 122 H 128 H Calcium Magnesium AST ALT Alkaline Phosphatase Total Creatine Kinase NT-Pro-B Natriuret Pep Albumin Urine WBC (Auto) Crossmatch 12/22/18 12/22/18 12/22/18 05:42 05:42 06:35 WBC 12.8 H RBC 2.82 L Hgb 7.5 L Hct 23.4 L MCV 83 L MCH 27 L MCHC RDW 17.2 H Plt Count Lymph % (Auto) [place] % (Auto) Eos % (Auto) Lymph # [place] # Eos # Seg Neutrophils % Seg Neutrophils # PT INR POC ABG pH POC ABG pCO2 POC ABG pO2 VBG pH Sodium Potassium Chloride Carbon Dioxide BUN 48 H Creatinine Glucose 115 H POC Glucose 120 H Calcium Magnesium AST ALT Alkaline Phosphatase Total Creatine Kinase NT-Pro-B Natriuret Pep Albumin Urine WBC (Auto) Crossmatch 12/22/18 11:30 WBC RBC Hgb Hct MCV MCH MCHC RDW Plt Count Lymph % (Auto) [place] % (Auto) Eos % (Auto) Lymph # [place] # Eos # Seg Neutrophils % Seg Neutrophils # PT INR POC ABG pH POC ABG pCO2 POC ABG pO2 VBG pH Sodium Potassium Chloride Carbon Dioxide BUN Creatinine Glucose POC Glucose 151 H Calcium Magnesium AST ALT Alkaline Phosphatase Total Creatine Kinase NT-Pro-B Natriuret Pep Albumin Urine WBC (Auto) Crossmatch Allied health notes reviewed: nursing
--- NOTE | 2018-12-22 13:48 | Progress Note ---
Assessment and Plan Assessment and plan: 7 YO Male [facility] Resident as [facility] with HTN, CVA, Obstructive Uropathy, Diastolic CHF, Contracture, Sacral Decubitus Ulcers, DE, DM, OA, Seizure Disorder, COPD, Dementia, BPH presents to ED for evaluation. Pt is stuporous and unable to provide history. Pt history taken from ED Staff, EMS, and SNF Staff. As per staff, the patient was found to have respiratory distress upon evaluation this morning. Pt found to have pulse oximetry in the 80's. EMS notified and patient subsequently transported to [facility] for further care and evaluation. Pt seen and evaluated in ED and found to have UTI, Sepsis, Encephalopathy as well as Acute Hypoxemic Respiratory Failure. Extensive discussion with family about patients poor prognosis surgery consulted, did debridment ID following, Pulmonary status improved Continue isolation care Chaudhary placed by Urology. 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 He needs to be on contact isolation. This cannot be cured with antibiotics. recommend palliative care/comfort care or hospice, family are not interested in that option. Completed daptomycin for 6 weeks completed 12/16/2018 Sacral pressure ulcer -infected. POA Debridement done by Dr Man Amputation recommended and the daughter refused Respiratory failure Supplemental oxygen, nebulizer therapy, mgt per pulmonology ANEMIA of chronic disease Transfused total 2 units PRBC hemoglobin is stable Transfuse as necessary Seizure Continue current therapy, seizure precautions. BPH Continue Chaudhary catherter Dementia supportive care Hyperkalemia. Resolved after kayexalate and Calcium gluconate 1 g iv Fever repeat blood cultures Re-consult ID Physician DVT prophylaxis Prophylactic lovenox POOR PROGNOSIS Disposition; pending SNF placement. Multible debridements done again 12/19/18 History Interval history: had multiple debridement 12/19/18 Fever recurrent Hospitalist Physical - Physical exam Narrative exam: Gen: Not in acute distress. lying in bed Head exam is unremarkable. No scleral icterus . Neck is without jugular venous distension, thyromegaly, or carotid bruits. Lungs are clear to auscultation. Cardiac exam reveals regular rate and Rhythm. First and second heart sounds normal. No murmurs, rubs or gallops. Abdominal exam reveals non tender, not distended,normal bowel sounds, no masses, Extremities contracted extremities. 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 - Constitutional Vitals: Temp Pulse Resp BP Pulse Ox 98.9 F 111 H 20 104/54 95 12/22/18 07:21 12/22/18 07:21 12/22/18 07:21 12/22/18 07:21 12/22/18 07:21 General appearance: Present: no acute distress Results - Labs CBC & Chem 7: 12/22/18 05:42 12/22/18 05:42 Labs: Laboratory Last Values WBC 12.8 K/mm3 (4.5-11.0) H 12/22/18 05:42 RBC 2.82 M/mm3 (3.65-5.03) L 12/22/18 05:42 Hgb 7.5 gm/dl (11.8-15.2) L 12/22/18 05:42 Hct 23.4 % (35.5-45.6) L 12/22/18 05:42 MCV 83 fl (84-94) L 12/22/18 05:42 MCH 27 pg (28-32) L 12/22/18 05:42 MCHC 32 % (32-34) 12/22/18 05:42 RDW 17.2 % (13.2-15.2) H 12/22/18 05:42 Plt Count 424 K/mm3 (140-440) 12/22/18 05:42 Lymph % (Auto) 11.3 % (13.4-35.0) L 12/17/18 05:01 [place] % (Auto) 7.5 % (0.0-7.3) H 12/17/18 05:01 Eos % (Auto) 4.5 % (0.0-4.3) H 12/17/18 05:01 Baso % (Auto) 0.8 % (0.0-1.8) 12/17/18 05:01 Lymph # 1.3 K/mm3 (1.2-5.4) 12/17/18 05:01 [place] # 0.8 K/mm3 (0.0-0.8) 12/17/18 05:01 Eos # 0.5 K/mm3 (0.0-0.4) H 12/17/18 05:01 Baso # 0.1 K/mm3 (0.0-0.1) 12/17/18 05:01 Seg Neutrophils % 75.9 % (40.0-70.0) H 12/17/18 05:01 Seg Neutrophils # 8.4 K/mm3 (1.8-7.7) H 12/17/18 05:01 PT 16.3 Sec. (12.2-14.9) H 11/01/18 14:50 INR 1.35 (0.87-1.13) H 11/01/18 14:50 POC ABG pH 7.494 (7.35-7.45) H 11/01/18 15:27 POC ABG pCO2 34.5 (35-45) L 11/01/18 15:27 POC ABG pO2 139 (80-105) H 11/01/18 15:27 POC ABG HCO3 26.5 (22-26 mml/L) 11/01/18 15:27 POC ABG Total CO2 28 (23-27mmol/L) 11/01/18 15:27 POC ABG O2 Sat 99 11/01/18 15:27 POC ABG Base Excess 3 ((-2) - (+3)mmol/L) 11/01/18 15:27 VBG pH 7.499 (7.320-7.420) H 11/01/18 14:50 50 % 11/01/18 15:27 Sodium 138 mmol/L (137-145) 12/22/18 05:42 Potassium 4.1 mmol/L (3.6-5.0) 12/22/18 05:42 Chloride 101.3 mmol/L (98-107) 12/22/18 05:42 Carbon Dioxide 22 mmol/L (22-30) 12/22/18 05:42 19 mmol/L 12/22/18 05:42 BUN 48 mg/dL (9-20) H 12/22/18 05:42 1.0 mg/dL (0.8-1.5) 12/22/18 05:42 Estimated GFR > 60 ml/min 12/22/18 05:42 48 % 12/22/18 05:42 Glucose 115 mg/dL (75-100) H 12/22/18 05:42 POC Glucose 151 (70-105) H 12/22/18 11:30 Lactic Acid 1.80 mmol/L (0.7-2.0) 11/01/18 14:50 Calcium 8.5 mg/dL (8.4-10.2) 12/22/18 05:42 Phosphorus 2.90 mg/dL (2.5-4.5) 11/22/18 09:43 Magnesium 2.50 mg/dL (1.7-2.3) H 12/06/18 20:57 0.20 mg/dL (0.1-1.2) 12/17/18 05:01 AST 97 units/L (5-40) H 12/17/18 05:01 ALT 99 units/L (7-56) H 12/17/18 05:01 279 units/L (35-129) H 12/17/18 05:01 50 units/L (55-170) L 12/16/18 00:27 NT-Pro-B Natriuret Pep 6776 pg/mL (0-900) H 11/01/18 14:50 7.7 g/dL (6.3-8.2) 12/17/18 05:01 1.8 g/dL (3.9-5) L 12/17/18 05:01 0.3 % 12/17/18 05:01 14 units/L (13-60) 11/25/18 15:07 Yellow (Yellow) 11/01/18 15:57 Turbid (Clear) 11/01/18 15:57 6.0 (5.0-7.0) 11/01/18 15:57 Ur Specific [place] 1.016 (1.003-1.030) 11/01/18 15:57 100 mg/dl mg/dL (Negative) 11/01/18 15:57 Neg mg/dL (Negative) 11/01/18 15:57 Neg mg/dL (Negative) 11/01/18 15:57 Neg (Negative) 11/01/18 15:57 Neg (Negative) 11/01/18 15:57 Neg (Negative) 11/01/18 15:57 < 2.0 mg/dL (<2.0) 11/01/18 15:57 Ur Leukocyte Esterase Mod (Negative) 11/01/18 15:57 > 182.0 /HPF (0.0-6.0) H 11/01/18 15:57 40.0 /HPF (0.0-6.0) 11/01/18 15:57 U Epithel Cells (Auto) 8.0 /HPF (0-13.0) 11/01/18 15:57 3+ /HPF 11/01/18 15:57 3+ /HPF 11/01/18 15:57 Random Vancomycin 13.9 ug/mL (0-40.0) 11/02/18 05:05 Blood Type O POSITIVE 11/25/18 15:28 Antibody Screen Negative 11/25/18 15:28 Crossmatch See Detail 11/25/18 15:28 Active Medications - Current Medications Current Medications: Generic Name Dose Route Start Last Admin Trade Name Freq PRN Reason Stop Dose Admin Acetaminophen 650 mg 12/11/18 15:21 12/19/18 22:10 Tylenol FEEDTUBE 650 mg Q6H PRN Administration Pain, Mild (1-3) Albuterol 2.5 mg 11/01/18 17:15 Proventil IH Q3HRT PRN Shortness Of Breath Lipase/Protease/Amylase 1 each 12/16/18 13:57 Pancreaze 10,500 Unit FEEDTUBE PRN PRN For Clogged Feeding Tube Ascorbic Acid 500 mg 11/01/18 22:00 12/22/18 09:48 Vitamin C FEEDTUBE 500 mg BID NORA Administration Atorvastatin Calcium 40 mg 11/01/18 22:00 12/21/18 22:30 Lipitor FEEDTUBE 40 mg QHS NORA Administration Carvedilol 6.25 mg 11/08/18 13:00 12/22/18 09:48 Coreg PO 6.25 mg BID NORA Administration Clonidine HCl 0.2 mg 11/05/18 17:18 12/17/18 17:31 Catapres-Tts Patch TD 0.2 mg Tu NORA Administration Enoxaparin Sodium 40 mg 11/02/18 10:00 12/22/18 09:48 Lovenox SUB-Q 40 mg QDAY@1000 NORA Administration Hydralazine HCl 10 mg 11/25/18 22:00 12/22/18 09:48 Apresoline PO Not Given Q12HR NORA Dextrose 1,000 mls @ 75 mls/hr 12/16/18 09:30 12/22/18 09:46 D5w IV 75 mls/hr DIRECT NORA Administration Levetiracetam 500 mg 11/01/18 22:00 12/22/18 09:47 Keppra FEEDTUBE 500 mg BID NORA Administration Mineral Oil 133 ml 12/10/18 14:55 Fleet Mineral Oil ND QDAY PRN Constipation Morphine Sulfate 2 mg 11/01/18 17:15 12/19/18 12:09 Morphine IV 2 mg Q4H PRN Administration Pain, Moderate (4-6) Multivitamins 5 ml 11/02/18 10:00 12/22/18 09:47 Centrum Liq FEEDTUBE 5 ml QDAY NORA Administration Polyethylene Glycol 17 gm 12/10/18 15:00 12/22/18 09:48 Miralax 3350 FEEDTUBE 17 gm QDAY NORA Administration Senna 8.6 mg 12/10/18 14:56 Senokot FEEDTUBE Q12H PRN Laxative Effect Simple Syrup 15 ml 12/16/18 13:57 Simple Syrup FEEDTUBE PRN PRN Hypoglycemia Simple Syrup 30 ml 12/16/18 13:57 Simple Syrup FEEDTUBE PRN PRN Hypoglycemia Sodium Bicarbonate 325 mg 12/16/18 13:57 Sodium Bicarbonate FEEDTUBE PRN PRN For Clogged Feeding Tube Sodium Biphosphate/Sodium Phosphate 133 ml 12/10/18 14:55 Fleet ND QDAY PRN Bowel Movement Sodium Chloride 10 ml 11/01/18 22:00 12/22/18 09:49 Sodium Chloride Flush Syringe 10 Ml IV 10 ml BID NORA Administration Sodium Chloride 10 ml 11/01/18 17:15 11/23/18 04:05 Sodium Chloride Flush Syringe 10 Ml IV 10 ml PRN PRN Administration LINE FLUSH Zinc Sulfate 220 mg 11/02/18 10:00 12/22/18 09:47 Zinc Sulfate PO 220 mg DAILY NORA Administration Nutrition/Malnutrition Assess - Dietary Evaluation Nutrition/Malnutrition Findings: Nutrition Notes Start: 11/04/18 16:00 Freq: Status: Active Protocol: Document 12/21/18 13:56 RM (Rec: 12/21/18 14:04 RM [id number]) Nutrition Notes Initial or Follow up Reassessment Current Diagnosis COPD,Diabetes,Sepsis, Hypertension,Heart Failure, Stroke Other Pertinent Diagnosis Infected sacral decubitus, Dementia, BPH, UTI Current Diet TF - Glucerna 1.2 at 70ml/hr + Mario BID Labs/Tests Na 138 K 09/19/18-09/20/18: 5.2, 4.1 Pertinent Medications Reviewed Height 5 ft 8 in Weight 62.1 kg [place] Body Weight (kg) 70.00 BMI 20.8 Subjective/Other Information Observed Glucerna 1.2 infusing at goal rate. Per nurse pt is tolerating TF and receiving Mario. Burn Absent Trauma Absent #1 Nutrition Diagnosis Inadequate oral intake Diagnosis Progress(for reassessment Continues documentation) Is patient on ventilator? No Is Patient Ambulatory and/or Out of Bed No REE-([facility]-confined to bed) 1638.480 Kcal/Kg value to use for calculation 34 Approximate Energy Requirements Using 2111 kcal/Kg Calculation Used for Recommendations Kcal/kg Additional Notes Pro needs 1.5-2g/k-124g/ day Fluid needs 1ml/kcal Nutrition Intervention Nutrition Support: Glucerna 1.2 at 70ml/hr Water flush of 200 mls q 4 hrs until hypernatremia resolves. Water flush of 100 mls q 4 hrs once hypernatremia resolves. Kcal 2,016 Protein (gm) 101 Carbohydrates (gm) 192 Fat (gm) 101 Fluid (mL) 1,352 Add Supplement/Snack (indicate name/kcal Mario BID /protein ) Provides kCal: 190 Provides Protein (gm) 5 Goal #1 TF tolerance Goal #2 TF to continue to meet at least 75% of calorie and protein needs Follow-Up By: 12/23/18 Additional Comments Follow for TF tolerance, Mario administration, K lab
[2018-12-22] MEDS ORDERED: VANCOMYCIN PHARMACY TO DOSE IV SCH (15:00)
[2018-12-22] MEDS ORDERED: VANCOMYCIN 1,250 MG in NACL 0.9% 250ML 250 ML IV ONE (16:30)
[2018-12-22] MEDS: MAXIPIME/NS 2 GM/100 ML 2 GM/100 ML BAG IV SCH ×2 (17:56→21:39)
[2018-12-22] MEDS: TYLENOL FEEDTUBE PRN (21:29)
[2018-12-23] MEDS: D5W 1,000 ML IV SCH ×2 (01:06→18:13)
[2018-12-23 01:27] LABS: Basophils # (Auto) 0.1 K/mm3 (0.0-0.1); Basophils % (Auto) 0.6 % (0.0-1.8); Eosinophils # (Auto) 0.3 K/mm3 (0.0-0.4); Lymphocytes # (Auto) 1.5 K/mm3 (1.2-5.4); Lymphocytes % (Auto) 13.4 % (13.4-35.0); Mean Corpuscular HGB Conc 32 % (32-34); Mean Corpuscular Volume 83 fl (84-94); Monocytes # (Auto) 1.4 K/mm3 (0.0-0.8); Monocytes % (Auto) 12.3 % (0.0-7.3); Platelet Count 433 K/mm3 (140-440); Red Cell Distribution Width 17.4 % (13.2-15.2)
[2018-12-23 01:42] LABS: Hematocrit 24.3 % (35.5-45.6); Hemoglobin 7.7 gm/dl (11.8-15.2); Red Blood Count 2.91 M/mm3 (3.65-5.03)
[2018-12-23] MEDS ORDERED: VANCOMYCIN/NS 1 GM/250 ML 1 GM/250 ML BAG IV SCH (04:30)
[2018-12-23 06:11] LABS: BUN/Creatinine Ratio 58; Blood Urea Nitrogen 58 mg/dL (9-20); Calcium 7.8 mg/dL (8.4-10.2); Hemolysis Index 4
--- NOTE | 2018-12-23 08:42 | Progress Note ---
Assessment and Plan Cultures: Blood culture 10/01/2018 MRSA 2 of 4. Blood culture 10/03/2018 MRSA Blood culture 10/08/2018 no growth Blood culture 10/11/2018 no growth Blood culture 10/21/2018 no growth Blood culture 11/01/2018 Staph haemolyticus 2 of 4 bottles, resistent to methicillin and MRSA 1 of 4 bottles Blood culture 11/04/2018 no growth Blood culture 12/21/2018 no growth to date Assessment: 67 y/o male with history of HTN, CVA, Obstructive Uropathy, Contracture, Multiple Decubitus Ulcers, AK, DM, OA, Seizure Disorder, COPD, Dementia, Debility, BPH, well known to ID due to multiple admissions secondary to karely ubitus ulcers infections and recurrent bacteremia, last time admitted on 10/02/2018 found with MRSA bacteremia dengley from decubitus ulcers mainly active large left trochanteric with bone exposure and sacral with bone exposure. Patient's infection was deemed incurable and hospice was recommended. Patient was discharged back to [place] on IV vancomycin 1 gm every 48 hours for total 6 weeks ending 11/12/2018 via neck tunneled cath. Patient was readmitted on due to AMS, worsening SOB. Patient is lethargic and unable to provide history. At the [place] he was found to have respiratory distress upon evaluation the morning of admission,pulse oximetry in the 80's: 1) New Fever: Improved. no fever in >48 hours. Repeat blood cultures show no growth to date. Start Vancomycin and Cefepime . When blood cultures clear for 48 hours, will stop antibiotics. When cultures are clear for 48 hours and no fevers, will consider removal of left tunneled PICC line. At risk for for CLABSI. 2) Severe Sepsis: Resolved. 3) Staph haemolyticus and MRSA bacteremia with recent MRSA bacteremia: Blood culture 11/01/2018 Staph haemolyticus 2 of 4 bottles and MRSA 1 of 4. Source likely multiple decubitus ulcers or Neck IV central line. Patient is failing vancomycin. He has a tunneled neck cath. Recent TTE negative for vegetations. On daptomycin. 4) Recent septic shock due to polymicrobial bacteremia ESBL and carbapenem resistant E coli, MDR Proteus, Strep and E faecalis on 07/29/2018 probably from multiple infected decubitus ulcers and less likely UTI. Repeat blood cultures 07/31/2018 showed same MDR E coli 1 of 4 bottles then 08/06/2018 blood cultures showed no growth. Patient was treated with Vabomere for 14 days. 5) Multiple infected decubitus ulcers: His prognosis has been poor and hospice has been recommended several times in the past but family has declined. declined. His wounds are not curable considering his contractures, bed bound status and poor nutritional status. There was also suspicion of septic arthritis of left hip from decubitus ulcer. S/p debridement of multiple pressure ulcerations on 11/07/2018- stage 4 left hip pressure ulceration was surgically excisionally debrided of necrotic bone, stage 3 sacral, right ankle and left heel pressure ulcers were then surgically, excisionally debrided of necrotic SQ fat, stage 4 right heel, left lateral heel and right lateral leg ulcerations were surgically, excisionally debrided of necrotic SQ tissue, muscle and fascia. Dr Man recommended bilateral AKA, patient and daughter refused. Dr Man recommended Orthopedic consultation for possible left hip disarticulation as his left hip joint is crumbling and has profuse purulent drainage. 6) Recurrent UTI: new bright placed this admission 7) Acute encephalopathy: multifactorial. 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 He needs to be on contact isolation. This cannot be cured with antibiotics. Needs to be hospice Grim prognosis. Jacquie Jean Baptiste NP [facility] M: [id number] O:[phone] Subjective Date of service: 12/23/18 Principal diagnosis: Severe Sepsis; Ac. Hypoxemic Resp failure; Anemia; Seizure; UTI; BPH Interval history: Patient seen and examined. Asleep, easy to arouse. No generalized pain reported. No fevers. Objective - Exam Narrative Exam: General appearance: Asleep. Easy to arouse. No acute distress. Eyes: anicteric sclerae, moist conjunctivae; no lid-lag; PERRLA HENT: Atraumatic; oropharynx limited Neck: Trachea midline; supple, no thyromegaly or lymphadenopathy Lungs: CTA CV: RRR no murmur Abdomen: Soft, non-tender Extremities: marked legs contractions, multiple decubitus ulcers covered with dressings. Right leg dressing with serosanguinous drainage. Skin: multiple skin tears Psych: Calm Neuro: asleep, easy to arouse Lines: left tunneled PICC - Constitutional Vitals: Vital Signs Temp Pulse Resp BP Pulse Ox 97.9 F 99 H 18 112/58 93 12/23/18 07:12 12/23/18 07:12 12/23/18 07:12 12/23/18 07:12 12/23/18 07:12 Temperature -Last 24 Hours Temperature 97.9 F Temperature 98.5 F Temperature 99.9 F Temperature 99.1 F - Labs CBC & Chem 7: 12/23/18 00:51 12/23/18 05:30 Labs: Abnormal lab results 12/22/18 12/22/18 12/23/18 Range/Units 11:30 18:30 00:02 RBC (3.65-5.03) M/mm3 Hgb (11.8-15.2) gm/dl Hct (35.5-45.6) % MCV (84-94) fl MCH (28-32) pg RDW (13.2-15.2) % [place] % (Auto) (0.0-7.3) % [place] # (0.0-0.8) K/mm3 Seg Neutrophils % (40.0-70.0) % Seg Neutrophils # (1.8-7.7) K/mm3 BUN (9-20) mg/dL Glucose (75-100) mg/dL POC Glucose 151 H 124 H 169 H (70-105) Calcium (8.4-10.2) mg/dL 12/23/18 12/23/18 12/23/18 Range/Units 00:51 05:30 06:09 RBC 2.91 L (3.65-5.03) M/mm3 Hgb 7.7 L (11.8-15.2) gm/dl Hct 24.3 L (35.5-45.6) % MCV 83 L (84-94) fl MCH 26 L (28-32) pg RDW 17.4 H (13.2-15.2) % [place] % (Auto) 12.3 H (0.0-7.3) % [place] # 1.4 H (0.0-0.8) K/mm3 Seg Neutrophils % 70.7 H (40.0-70.0) % Seg Neutrophils # 7.8 H (1.8-7.7) K/mm3 BUN 58 H (9-20) mg/dL Glucose 121 H (75-100) mg/dL POC Glucose 146 H (70-105) Calcium 7.8 L (8.4-10.2) mg/dL
[2018-12-23] MEDS: MORPHINE IV PRN (08:54)
[2018-12-23] MEDS: KEPPRA FEEDTUBE SCH ×2 (09:02→21:45)
[2018-12-23] MEDS: ZINC SULFATE PO SCH (09:02)
[2018-12-23] MEDS: APRESOLINE PO SCH (09:02)
[2018-12-23] MEDS: Centrum Liq FEEDTUBE SCH (09:02)
[2018-12-23] MEDS: LOVENOX SUB-Q SCH (09:13)
[2018-12-23] MEDS: VITAMIN C FEEDTUBE SCH ×2 (09:14→21:45)
[2018-12-23] MEDS: COREG PO SCH ×2 (09:14→21:46)
[2018-12-23] MEDS: MAXIPIME/NS 2 GM/100 ML 2 GM/100 ML BAG IV SCH (09:16)
[2018-12-23] MEDS: SODIUM CHLORIDE FLUSH SYRINGE 10 ML IV SCH (09:16)
[2018-12-23] MEDS: MIRALAX 3350 FEEDTUBE SCH (09:19)
--- NOTE | 2018-12-23 11:39 | Progress Note ---
Assessment and Plan Assessment and plan: 7 [facility] Male Senior [facility] Facility Resident as [facility] with HTN, CVA, Obstructive Uropathy, Diastolic CHF, Contracture, Sacral Decubitus Ulcers, ID, DM, OA, Seizure Disorder, COPD, Dementia, BPH presents to ED for evaluation. Pt is stuporous and unable to provide history. Pt history taken from ED Staff, EMS, and SNF Staff. As per staff, the patient was found to have respiratory distress upon evaluation this morning. Pt found to have pulse oximetry in the 80's. EMS notified and patient subsequently transported to [facility] for further care and evaluation. Patient seen and evaluated in ED and found to have UTI, Sepsis, Encephalopathy as well as Acute Hypoxemic Respiratory Failure. patient has had a prolonged course, had completed antibiotics, was awaiting placement in isolation bed. hopwever he started having fever past few days, ID reconsulted and started Cefepime and Vancomycin 12/22/18 Physicians had Extensive discussion with family about patients poor prognosis surgery consulted, did debridment ID following, Continue isolation precautions Chaudhary placed by Urology. 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 He needs to be on contact isolation. This cannot be cured with antibiotics. recommend palliative care/c omfort care or hospice, family are not interested in that option. Completed daptomycin for 6 weeks completed 12/16/2018 Sacral pressure ulcer -infected. POA Debridement done by Dr Man Amputation recommended and the daughter refused Respiratory failure Supplemental oxygen, nebulizer therapy, mgt per pulmonology ANEMIA of chronic disease Transfused total 2 units PRBC hemoglobin is stable Transfuse as necessary Seizure Continue current therapy, seizure precautions. BPH Continue Chaudhary catherter Dementia supportive care Hyperkalemia. Resolved after kayexalate and Calcium Gluconate 1 g iv Fever repeat blood cultures Re-consulted ID Physician Started on Cefepime and Vancomycin on 12/22/18 DVT prophylaxis Prophylactic lovenox Poor Prognosis Disposition; pending SNF placement. Multible debridements done again 12/19/18 History Interval history: Had multiple debridement 12/19/18 Fever recurrent Hospitalist Physical - Physical exam Narrative exam: Gen: Not in acute distress. lying in bed Head exam is unremarkable. No scleral icterus . Neck is without jugular venous distension, thyromegaly, or carotid bruits. Lungs are clear to auscultation. Cardiac exam reveals regular rate and Rhythm. First and second heart sounds normal. No murmurs, rubs or gallops. Abdominal exam reveals non tender, not distended,normal bowel sounds, no masses, Extremities contracted extremities. CORPORATE REPRESENTATIVE: Awake, contracted extremities Skin; multiple decubitus ulcers, including the sacrum , lower extremities bilateral. - Constitutional Vitals: Temp Pulse Resp BP Pulse Ox 97.9 F 103 H 18 103/58 93 12/23/18 07:12 12/23/18 09:14 12/23/18 07:12 12/23/18 09:14 12/23/18 07:12 General appearance: Present: no acute distress Results - Labs CBC & Chem 7: 12/23/18 00:51 12/23/18 05:30 Labs: Laboratory Last Values WBC 11.0 K/mm3 (4.5-11.0) 12/23/18 00:51 RBC 2.91 M/mm3 (3.65-5.03) L 12/23/18 00:51 Hgb 7.7 gm/dl (11.8-15.2) L 12/23/18 00:51 Hct 24.3 % (35.5-45.6) L 12/23/18 00:51 MCV 83 fl (84-94) L 12/23/18 00:51 MCH 26 pg (28-32) L 12/23/18 00:51 MCHC 32 % (32-34) 12/23/18 00:51 RDW 17.4 % (13.2-15.2) H 12/23/18 00:51 Plt Count 433 K/mm3 (140-440) 12/23/18 00:51 Lymph % (Auto) 13.4 % (13.4-35.0) 12/23/18 00:51 [place]erry % (Auto) 12.3 % (0.0-7.3) H 12/23/18 00:51 Eos % (Auto) 3.0 % (0.0-4.3) 12/23/18 00:51 Baso % (Auto) 0.6 % (0.0-1.8) 12/23/18 00:51 Lymph # 1.5 K/mm3 (1.2-5.4) 12/23/18 00:51 [place]erry # 1.4 K/mm3 (0.0-0.8) H 12/23/18 00:51 Eos # 0.3 K/mm3 (0.0-0.4) 12/23/18 00:51 Baso # 0.1 K/mm3 (0.0-0.1) 12/23/18 00:51 Seg Neutrophils % 70.7 % (40.0-70.0) H 12/23/18 00:51 Seg Neutrophils # 7.8 K/mm3 (1.8-7.7) H 12/23/18 00:51 PT 16.3 Sec. (12.2-14.9) H 11/01/18 14:50 INR 1.35 (0.87-1.13) H 11/01/18 14:50 POC ABG pH 7.494 (7.35-7.45) H 11/01/18 15:27 POC ABG pCO2 34.5 (35-45) L 11/01/18 15:27 POC ABG pO2 139 (80-105) H 11/01/18 15:27 POC ABG HCO3 26.5 (22-26 mml/L) 11/01/18 15:27 POC ABG Total CO2 28 (23-27mmol/L) 11/01/18 15:27 POC ABG O2 Sat 99 11/01/18 15:27 POC ABG Base Excess 3 ((-2) - (+3)mmol/L) 11/01/18 15:27 VBG pH 7.499 (7.320-7.420) H 11/01/18 14:50 50 % 11/01/18 15:27 Sodium 138 mmol/L (137-145) 12/23/18 05:30 Potassium 5.0 mmol/L (3.6-5.0) D 12/23/18 05:30 Chloride 102.9 mmol/L (98-107) 12/23/18 05:30 Carbon Dioxide 26 mmol/L (22-30) 12/23/18 05:30 14 mmol/L 12/23/18 05:30 BUN 58 mg/dL (9-20) H 12/23/18 05:30 1.0 mg/dL (0.8-1.5) 12/23/18 05:30 Estimated GFR > 60 ml/min 12/23/18 05:30 58 % 12/23/18 05:30 Glucose 121 mg/dL (75-100) H 12/23/18 05:30 POC Glucose 153 (70-105) H 12/23/18 11:34 Lactic Acid 1.80 mmol/L (0.7-2.0) 11/01/18 14:50 Calcium 7.8 mg/dL (8.4-10.2) L 12/23/18 05:30 Phosphorus 2.90 mg/dL (2.5-4.5) 11/22/18 09:43 Magnesium 2.50 mg/dL (1.7-2.3) H 12/06/18 20:57 0.20 mg/dL (0.1-1.2) 12/17/18 05:01 AST 97 units/L (5-40) H 12/17/18 05:01 ALT 99 units/L (7-56) H 12/17/18 05:01 279 units/L (35-129) H 12/17/18 05:01 50 units/L (55-170) L 12/16/18 00:27 NT-Pro-B Natriuret Pep 6776 pg/mL (0-900) H 11/01/18 14:50 7.7 g/dL (6.3-8.2) 12/17/18 05:01 1.8 g/dL (3.9-5) L 12/17/18 05:01 0.3 % 12/17/18 05:01 14 units/L (13-60) 11/25/18 15:07 Yellow (Yellow) 11/01/18 15:57 Turbid (Clear) 11/01/18 15:57 6.0 (5.0-7.0) 11/01/18 15:57 Ur Specific Twain 1.016 (1.003-1.030) 11/01/18 15:57 100 mg/dl mg/dL (Negative) 11/01/18 15:57 Neg mg/dL (Negative) 11/01/18 15:57 Neg mg/dL (Negative) 11/01/18 15:57 Neg (Negative) 11/01/18 15:57 Neg (Negative) 11/01/18 15:57 Neg (Negative) 11/01/18 15:57 < 2.0 mg/dL (<2.0) 11/01/18 15:57 Ur Leukocyte Esterase Mod (Negative) 11/01/18 15:57 > 182.0 /HPF (0.0-6.0) H 11/01/18 15:57 40.0 /HPF (0.0-6.0) 11/01/18 15:57 U Epithel Cells (Auto) 8.0 /HPF (0-13.0) 11/01/18 15:57 3+ /HPF 11/01/18 15:57 3+ /HPF 11/01/18 15:57 Random Vancomycin 13.9 ug/mL (0-40.0) 11/02/18 05:05 Blood Type O POSITIVE 11/25/18 15:28 Antibody Screen Negative 11/25/18 15:28 Crossmatch See Detail 11/25/18 15:28 Active Medications - Current Medications Current Medications: Generic Name Dose Route Start Last Admin Trade Name Freq PRN Reason Stop Dose Admin Acetaminophen 650 mg 12/11/18 15:21 12/22/18 21:29 Tylenol FEEDTUBE 650 mg Q6H PRN Administration Pain, Mild (1-3) Albuterol 2.5 mg 11/01/18 17:15 Proventil IH Q3HRT PRN Shortness Of Breath Lipase/Protease/Amylase 1 each 12/16/18 13:57 Pancreaze 10,500 Unit FEEDTUBE PRN PRN For Clogged Feeding Tube Ascorbic Acid 500 mg 11/01/18 22:00 12/23/18 09:14 Vitamin C FEEDTUBE 500 mg BID NORA Administration Atorvastatin Calcium 40 mg 11/01/18 22:00 12/22/18 21:29 Lipitor FEEDTUBE 40 mg QHS NORA Administration Carvedilol 6.25 mg 11/08/18 13:00 12/23/18 09:14 Coreg PO 6.25 mg BID NORA Administration Clonidine HCl 0.2 mg 11/05/18 17:18 12/17/18 17:31 Catapres-Tts Patch TD 0.2 mg Tu NORA Administration Enoxaparin Sodium 40 mg 11/02/18 10:00 12/23/18 09:13 Lovenox SUB-Q 40 mg QDAY@1000 NORA Administration Hydralazine HCl 10 mg 11/25/18 22:00 12/23/18 09:02 Apresoline PO 10 mg Q12HR NORA Administration Dextrose 1,000 mls @ 75 mls/hr 12/16/18 09:30 12/23/18 01:06 D5w IV 75 mls/hr DIRECT NORA Administration Cefepime HCl 2 gm in 100 mls @ 200 mls/hr 12/22/18 15:00 12/23/18 09:16 Maxipime/Ns 2 Gm/100 Ml IV 200 mls/hr Q12HR NORA Administration Protocol Vancomycin HCl 750 mg/ Sodium 265 mls @ 166.667 mls/hr 12/23/18 18:00 Chloride IV Q12H NORA Levetiracetam 500 mg 11/01/18 22:00 12/23/18 09:02 Keppra FEEDTUBE 500 mg BID NORA Administration Mineral Oil 133 ml 12/10/18 14:55 Fleet Mineral Oil MO QDAY PRN Constipation Morphine Sulfate 2 mg 11/01/18 17:15 12/23/18 08:54 Morphine IV 2 mg Q4H PRN Administration Pain, Moderate (4-6) Multivitamins 5 ml 11/02/18 10:00 12/23/18 09:02 Centrum Liq FEEDTUBE 5 ml QDAY NORA Administration Polyethylene Glycol 17 gm 12/10/18 15:00 12/23/18 09:19 Miralax 3350 FEEDTUBE 17 gm QDAY NORA Administration Senna 8.6 mg 12/10/18 14:56 Senokot FEEDTUBE Q12H PRN Laxative Effect Simple Syrup 15 ml 12/16/18 13:57 Simple Syrup FEEDTUBE PRN PRN Hypoglycemia Simple Syrup 30 ml 12/16/18 13:57 Simple Syrup FEEDTUBE PRN PRN Hypoglycemia Sodium Bicarbonate 325 mg 12/16/18 13:57 Sodium Bicarbonate FEEDTUBE PRN PRN For Clogged Feeding Tube Sodium Biphosphate/Sodium Phosphate 133 ml 12/10/18 14:55 Fleet MO QDAY PRN Bowel Movement Sodium Chloride 10 ml 11/01/18 22:00 12/23/18 09:16 Sodium Chloride Flush Syringe 10 Ml IV 10 ml BID NORA Administration Sodium Chloride 10 ml 11/01/18 17:15 11/23/18 04:05 Sodium Chloride Flush Syringe 10 Ml IV 10 ml PRN PRN Administration LINE FLUSH Zinc Sulfate 220 mg 11/02/18 10:00 12/23/18 09:02 Zinc Sulfate PO 220 mg DAILY NORA Administration Nutrition/Malnutrition Assess - Dietary Evaluation Nutrition/Malnutrition Findings: Nutrition Notes Start: 11/04/18 16:00 Freq: Status: Active Protocol: Document 12/21/18 13:56 RM (Rec: 12/21/18 14:04 RM [email or web address]) Nutrition Notes Initial or Follow up Reassessment Current Diagnosis COPD,Diabetes,Sepsis, Hypertension,Heart Failure, Stroke Other Pertinent Diagnosis Infected sacral decubitus, Dementia, BPH, UTI Current Diet TF - Glucerna 1.2 at 70ml/hr + Mario BID Labs/Tests Na 138 K 09/19/18-09/20/18: 5.2, 4.1 Pertinent Medications Reviewed Height 5 ft 8 in Weight 62.1 kg [place] Body Weight (kg) 70.00 BMI 20.8 Subjective/Other Information Observed Glucerna 1.2 infusing at goal rate. Per nurse pt is tolerating TF and receiving Mario. Burn Absent Trauma Absent #1 Nutrition Diagnosis Inadequate oral intake Diagnosis Progress(for reassessment Continues documentation) Is patient on ventilator? No Is Patient Ambulatory and/or Out of Bed No REE-([facility]-confined to bed) 1638.480 Kcal/Kg value to use for calculation 34 Approximate Energy Requirements Using 2111 kcal/Kg Calculation Used for Recommendations Kcal/kg Additional Notes Pro needs 1.5-2g/k-124g/ day Fluid needs 1ml/kcal Nutrition Intervention Nutrition Support: Glucerna 1.2 at 70ml/hr Water flush of 200 mls q 4 hrs until hypernatremia resolves. Water flush of 100 mls q 4 hrs once hypernatremia resolves. Kcal 2,016 Protein (gm) 101 Carbohydrates (gm) 192 Fat (gm) 101 Fluid (mL) 1,352 Add Supplement/Snack (indicate name/kcal Mario BID /protein ) Provides kCal: 190 Provides Protein (gm) 5 Goal #1 TF tolerance Goal #2 TF to continue to meet at least 75% of calorie and protein needs Follow-Up By: 12/23/18 Additional Comments Follow for TF tolerance, Mario administration, Viridiana wakefield
--- NOTE | 2018-12-23 13:11 | Progress Note ---
Assessment and Plan Patient is weak and contracted and has multiple pressure wounds. Patients general medical condition poor and unchanged. Patient is awake. Not follow commands. On room air at this time. No acute respiratory distress. O2 sat 93%. Patient afebrile. No leukocytosis. . - Patient Problems (1) Respiratory failure Current Visit: Yes Status: Acute Qualifiers: Chronicity: acute Respiratory failure complication: hypoxia Qualified Code(s): J96.01 - Acute respiratory failure with hypoxia Plan to address problem: Continue O2 supplementation 2 L via nasal canula prn for shortness of breath Albuterol and Atrovent treatment q6h. Continue SQ Levonox. Recommend GI prophylaxis. (2) Seizure Current Visit: Yes Status: Acute Plan to address problem: Management as per neurologist. (3) Sepsis Current Visit: Yes Status: Acute Plan to address problem: Patient treated with Daptomycine . Antibiotic management as per infectious diseases. (4) UTI (urinary tract infection) Current Visit: Yes Status: Acute Qualifiers: Encounter type: initial encounter Plan to address problem: Patient is treated with Daptomycine . Antibiotic management as per infectious diseases. (5) ARF (acute renal failure) with tubular necrosis Current Visit: No Status: Acute Plan to address problem: Management as per Nephrology. Subjective Date of service: 12/23/18 Principal diagnosis: Severe Sepsis; Ac. Hypoxemic Resp failure; Anemia; Seizure; UTI; BPH Interval history: Patient is weak and contracted and has multiple pressure wounds. Patients general medical condition poor and unchanged. Patient is awake. Not follow commands. On room air at this time. No acute re spiratory distress. O2 sat 93%. Patient afebrile. No leukocytosis. Objective Vital Signs - 12hr 12/23/18 12/23/18 12/23/18 01:53 07:12 09:02 Temperature 98.5 F 97.9 F Pulse Rate 85 99 H 103 H Respiratory 18 18 Rate Blood Pressure 90/54 112/58 103/58 O2 Sat by Pulse 98 93 Oximetry 12/23/18 09:14 Temperature Pulse Rate 103 H Respiratory Rate Blood Pressure 103/58 O2 Sat by Pulse Oximetry Constitutional: no acute distress, alert Eyes: non-icteric ENT: oropharynx moist Neck: no lymphadenopathy, no JVD, other (mild stiffness / contracture) Effort: normal Ascultation: Bilateral: diminished breath sounds, rhonchi Percussion: Bilateral: not dull Cardiovascular: regular rate and rhythm Gastrointestinal: normoactive bowel sounds, soft, non-tender, non-distended Integumentary: rash Extremities: no cyanosis, no edema, pulses normal, other (Patient has pressure ulcer at multiple areas, including sacral area.) Neurologic: non-focal exam, pupils equal and round, CN II-XII normal, other (+ contractures) Psychiatric: mood appropriate, affect normal CBC and BMP: 12/23/18 00:51 12/23/18 05:30 ABG, PT/INR, D-dimer: ABG POC ABG pH 7.494 (7.35-7.45) H 11/01/18 15:27 POC ABG pCO2 34.5 (35-45) L 11/01/18 15:27 POC ABG pO2 139 (80-105) H 11/01/18 15:27 POC ABG HCO3 26.5 (22-26 mml/L) 11/01/18 15:27 POC ABG Total CO2 28 (23-27mmol/L) 11/01/18 15:27 POC ABG O2 Sat 99 11/01/18 15:27 PT/INR, D-dimer PT 16.3 Sec. (12.2-14.9) H 11/01/18 14:50 INR 1.35 (0.87-1.13) H 11/01/18 14:50 Abnormal lab findings: Abnormal Labs 11/01/18 11/01/18 11/01/18 14:50 14:50 14:50 WBC 15.3 H RBC 2.76 L Hgb 7.9 L Hct 23.5 L MCV MCH MCHC RDW 18.3 H Plt Count 567 H Lymph % (Auto) 6.5 L [place] % (Auto) 8.5 H Eos % (Auto) Lymph # 1.0 L [place] # 1.3 H Eos # Seg Neutrophils % 83.4 H Seg Neutrophils # 12.7 H PT 16.3 H INR 1.35 H POC ABG pH POC ABG pCO2 POC ABG pO2 VBG pH Sodium Potassium Chloride Carbon Dioxide BUN 49 H Creatinine Glucose 132 H POC Glucose Calcium Magnesium AST 90 H ALT 77 H Alkaline Phosphatase 350 H Total Creatine Kinase NT-Pro-B Natriuret Pep Albumin 1.6 L Urine WBC (Auto) Crossmatch 06/14/19 06/14/19 06/14/19 14:50 14:50 15:27 WBC RBC Hgb Hct MCV MCH MCHC RDW Plt Count Lymph % (Auto) [place] % (Auto) Eos % (Auto) Lymph # [place] # Eos # Seg Neutrophils % Seg Neutrophils # PT INR POC ABG pH 7.494 H POC ABG pCO2 34.5 L POC ABG pO2 139 H VBG pH 7.499 H Sodium Potassium Chloride Carbon Dioxide BUN Creatinine Glucose POC Glucose Calcium Magnesium AST ALT Alkaline Phosphatase Total Creatine Kinase NT-Pro-B Natriuret Pep 6776 H Albumin Urine WBC (Auto) Crossmatch 11/01/18 11/03/18 11/03/18 15:57 03:41 03:41 WBC 12.8 H RBC 2.55 L Hgb 6.9 L Hct 22.2 L MCV MCH 27 L MCHC 31 L RDW 17.9 H Plt Count 519 H Lymph % (Auto) [place] % (Auto) Eos % (Auto) Lymph # [place] # Eos # Seg Neutrophils % Seg Neutrophils # PT INR POC ABG pH POC ABG pCO2 POC ABG pO2 VBG pH Sodium 147 H Potassium Chloride 110.3 H Carbon Dioxide BUN 55 H Creatinine Glucose POC Glucose Calcium Magnesium AST ALT Alkaline Phosphatase Total Creatine Kinase NT-Pro-B Natriuret Pep Albumin Urine WBC (Auto) > 182.0 H Crossmatch 11/03/18 11/04/18 11/04/18 12:51 05:12 05:12 WBC 11.5 H RBC 2.94 L Hgb 8.3 L Hct 25.3 L MCV MCH MCHC RDW 17.3 H Plt Count 514 H Lymph % (Auto) [place] % (Auto) Eos % (Auto) Lymph # [place] # Eos # Seg Neutrophils % Seg Neutrophils # PT INR POC ABG pH POC ABG pCO2 POC ABG pO2 VBG pH Sodium 147 H Potassium Chloride 112.4 H Carbon Dioxide BUN 52 H Creatinine Glucose POC Glucose Calcium Magnesium AST ALT Alkaline Phosphatase Total Creatine Kinase NT-Pro-B Natriuret Pep Albumin Urine WBC (Auto) Crossmatch See Detail 11/05/18 11/05/18 11/06/18 04:50 04:50 05:42 WBC RBC 3.03 L 2.80 L Hgb 8.7 L 7.9 L Hct 26.6 L 24.7 L MCV MCH MCHC RDW 17.1 H 17.0 H Plt Count 502 H 478 H Lymph % (Auto) 10.4 L [place] % (Auto) 8.6 H Eos % (Auto) 4.7 H Lymph # 1.0 L [place] # Eos # 0.5 H Seg Neutrophils % 75.6 H Seg Neutrophils # PT INR POC ABG pH POC ABG pCO2 POC ABG pO2 VBG pH Sodium 149 H Potassium Chloride 114.4 H Carbon Dioxide 21 L BUN 50 H Creatinine Glucose 108 H POC Glucose Calcium Magnesium AST ALT Alkaline Phosphatase Total Creatine Kinase NT-Pro-B Natriuret Pep Albumin Urine WBC (Auto) Crossmatch 11/06/18 11/11/18 11/12/18 05:42 18:54 00:22 WBC RBC Hgb Hct MCV MCH MCHC RDW Plt Count Lymph % (Auto) [place] % (Auto) Eos % (Auto) Lymph # [place] # Eos # Seg Neutrophils % Seg Neutrophils # PT INR POC ABG pH POC ABG pCO2 POC ABG pO2 VBG pH Sodium 149 H Potassium Chloride 113.4 H Carbon Dioxide BUN 50 H Creatinine Glucose 121 H POC Glucose 114 H 123 H Calcium Magnesium AST ALT Alkaline Phosphatase Total Creatine Kinase NT-Pro-B Natriuret Pep Albumin Urine WBC (Auto) Crossmatch 11/12/18 11/12/18 11/13/18 06:49 11:35 06:34 WBC RBC Hgb Hct MCV MCH MCHC RDW Plt Count Lymph % (Auto) [place] % (Auto) Eos % (Auto) Lymph # [place] # Eos # Seg Neutrophils % Seg Neutrophils # PT INR POC ABG pH POC ABG pCO2 POC ABG pO2 VBG pH Sodium Potassium Chloride Carbon Dioxide BUN Creatinine Glucose POC Glucose 129 H 123 H 128 H Calcium Magnesium AST ALT Alkaline Phosphatase Total Creatine Kinase NT-Pro-B Natriuret Pep Albumin Urine WBC (Auto) Crossmatch 11/13/18 11/13/18 11/13/18 09:26 09:26 15:13 WBC RBC 3.08 L Hgb 8.6 L Hct 27.3 L MCV MCH MCHC 31 L RDW 18.3 H Plt Count 504 H Lymph % (Auto) 11.7 L [place] % (Auto) 7.5 H Eos % (Auto) 7.0 H Lymph # [place] # Eos # 0.7 H Seg Neutrophils % 72.9 H Seg Neutrophils # PT INR POC ABG pH POC ABG pCO2 POC ABG pO2 VBG pH Sodium 153 H Potassium 6.3 H* 5.8 H Chloride 122.3 H Carbon Dioxide 21 L BUN 38 H Creatinine Glucose 112 H POC Glucose Calcium Magnesium AST ALT Alkaline Phosphatase Total Creatine Kinase NT-Pro-B Natriuret Pep Albumin Urine WBC (Auto) Crossmatch 11/13/18 11/13/18 11/14/18 22:10 23:45 13:17 WBC RBC Hgb Hct MCV MCH MCHC RDW Plt Count Lymph % (Auto) [place] % (Auto) Eos % (Auto) Lymph # [place] # Eos # Seg Neutrophils % Seg Neutrophils # PT INR POC ABG pH POC ABG pCO2 POC ABG pO2 VBG pH Sodium 155 H Potassium 5.3 H Chloride 122.3 H Carbon Dioxide BUN 35 H Creatinine Glucose 113 H POC Glucose 111 H 142 H Calcium Magnesium AST ALT Alkaline Phosphatase Total Creatine Kinase NT-Pro-B Natriuret Pep Albumin Urine WBC (Auto) Crossmatch 11/14/18 11/15/18 11/15/18 19:08 00:31 06:45 WBC RBC Hgb Hct MCV MCH MCHC RDW Plt Count Lymph % (Auto) [place] % (Auto) Eos % (Auto) Lymph # [place] # Eos # Seg Neutrophils % Seg Neutrophils # PT INR POC ABG pH POC ABG pCO2 POC ABG pO2 VBG pH Sodium Potassium Chloride Carbon Dioxide BUN Creatinine Glucose POC Glucose 116 H 125 H 131 H Calcium Magnesium AST ALT Alkaline Phosphatase Total Creatine Kinase NT-Pro-B Natriuret Pep Albumin Urine WBC (Auto) Crossmatch 11/15/18 11/15/18 11/15/18 07:13 07:13 19:03 WBC 13.2 H RBC 2.81 L Hgb 7.8 L Hct 24.5 L MCV MCH MCHC RDW 18.2 H Plt Count 454 H Lymph % (Auto) 9.0 L [place] % (Auto) 7.5 H Eos % (Auto) Lymph # [place] # 1.0 H Eos # 0.5 H Seg Neutrophils % 78.8 H Seg Neutrophils # 10.4 H PT INR POC ABG pH POC ABG pCO2 POC ABG pO2 VBG pH Sodium 149 H Potassium 5.2 H Chloride 117.2 H Carbon Dioxide BUN 38 H Creatinine Glucose 114 H POC Glucose 141 H Calcium Magnesium AST ALT Alkaline Phosphatase Total Creatine Kinase NT-Pro-B Natriuret Pep Albumin Urine WBC (Auto) Crossmatch 11/16/18 11/16/18 11/16/18 01:15 01:15 06:45 WBC RBC Hgb Hct MCV MCH MCHC RDW Plt Count Lymph % (Auto) [place] % (Auto) Eos % (Auto) Lymph # [place] # Eos # Seg Neutrophils % Seg Neutrophils # PT INR POC ABG pH POC ABG pCO2 POC ABG pO2 VBG pH Sodium Potassium 5.3 H Chloride Carbon Dioxide BUN Creatinine Glucose POC Glucose 129 H Calcium Magnesium 2.60 H AST ALT Alkaline Phosphatase Total Creatine Kinase NT-Pro-B Natriuret Pep Albumin Urine WBC (Auto) Crossmatch 11/16/18 11/16/18 11/17/18 13:20 18:02 00:16 WBC RBC Hgb Hct MCV MCH MCHC RDW Plt Count Lymph % (Auto) [place] % (Auto) Eos % (Auto) Lymph # [place] # Eos # Seg Neutrophils % Seg Neutrophils # PT INR POC ABG pH POC ABG pCO2 POC ABG pO2 VBG pH Sodium Potassium Chloride Carbon Dioxide BUN Creatinine Glucose POC Glucose 130 H 127 H 120 H Calcium Magnesium AST ALT Alkaline Phosphatase Total Creatine Kinase NT-Pro-B Natriuret Pep Albumin Urine WBC (Auto) Crossmatch 11/17/18 11/17/18 11/17/18 05:48 08:02 08:02 WBC RBC Hgb 7.5 L Hct 23.5 L MCV MCH MCHC RDW Plt Count Lymph % (Auto) [place] % (Auto) Eos % (Auto) Lymph # [place] # Eos # Seg Neutrophils % Seg Neutrophils # PT INR POC ABG pH POC ABG pCO2 POC ABG pO2 VBG pH Sodium Potassium Chloride 110.1 H Carbon Dioxide 21 L BUN 38 H Creatinine Glucose 121 H POC Glucose 130 H Calcium Magnesium AST ALT Alkaline Phosphatase Total Creatine Kinase NT-Pro-B Natriuret Pep Albumin Urine WBC (Auto) Crossmatch 11/17/18 11/17/18 11/18/18 12:17 16:48 06:00 WBC RBC Hgb Hct MCV MCH MCHC RDW Plt Count Lymph % (Auto) [place] % (Auto) Eos % (Auto) Lymph # [place] # Eos # Seg Neutrophils % Seg Neutrophils # PT INR POC ABG pH POC ABG pCO2 POC ABG pO2 VBG pH Sodium Potassium Chloride Carbon Dioxide BUN Creatinine Glucose POC Glucose 140 H 120 H 137 H Calcium Magnesium AST ALT Alkaline Phosphatase Total Creatine Kinase NT-Pro-B Natriuret Pep Albumin Urine WBC (Auto) Crossmatch 11/19/18 11/19/18 11/19/18 00:20 05:35 06:11 WBC RBC Hgb Hct MCV MCH MCHC RDW Plt Count Lymph % (Auto) [place] % (Auto) Eos % (Auto) Lymph # [place] # Eos # Seg Neutrophils % Seg Neutrophils # PT INR POC ABG pH POC ABG pCO2 POC ABG pO2 VBG pH Sodium Potassium Chloride Carbon Dioxide BUN Creatinine Glucose POC Glucose 111 H 126 H Calcium Magnesium AST ALT Alkaline Phosphatase Total Creatine Kinase 53 L NT-Pro-B Natriuret Pep Albumin Urine WBC (Auto) Crossmatch 11/19/18 11/19/18 11/20/18 11:37 23:43 06:52 WBC RBC Hgb Hct MCV MCH MCHC RDW Plt Count Lymph % (Auto) [place] % (Auto) Eos % (Auto) Lymph # [place] # Eos # Seg Neutrophils % Seg Neutrophils # PT INR POC ABG pH POC ABG pCO2 POC ABG pO2 VBG pH Sodium Potassium Chloride Carbon Dioxide BUN Creatinine Glucose POC Glucose 139 H 145 H 125 H Calcium Magnesium AST ALT Alkaline Phosphatase Total Creatine Kinase NT-Pro-B Natriuret Pep Albumin Urine WBC (Auto) Crossmatch 11/20/18 11/20/18 11/20/18 09:55 09:55 11:49 WBC RBC 3.04 L Hgb 8.4 L Hct 26.1 L MCV MCH MCHC RDW 17.5 H Plt Count Lymph % (Auto) [place] % (Auto) Eos % (Auto) Lymph # [place] # Eos # Seg Neutrophils % Seg Neutrophils # PT INR POC ABG pH POC ABG pCO2 POC ABG pO2 VBG pH Sodium 149 H Potassium Chloride 114.5 H Carbon Dioxide 21 L BUN 35 H Creatinine Glucose 127 H POC Glucose 150 H Calcium Magnesium AST ALT Alkaline Phosphatase Total Creatine Kinase NT-Pro-B Natriuret Pep Albumin Urine WBC (Auto) Crossmatch 11/20/18 11/20/18 11/21/18 18:02 23:49 06:14 WBC RBC Hgb Hct MCV MCH MCHC RDW Plt Count Lymph % (Auto) [place] % (Auto) Eos % (Auto) Lymph # [place] # Eos # Seg Neutrophils % Seg Neutrophils # PT INR POC ABG pH POC ABG pCO2 POC ABG pO2 VBG pH Sodium Potassium Chloride Carbon Dioxide BUN Creatinine Glucose POC Glucose 131 H 137 H 133 H Calcium Magnesium AST ALT Alkaline Phosphatase Total Creatine Kinase NT-Pro-B Natriuret Pep Albumin Urine WBC (Auto) Crossmatch 11/21/18 11/21/18 11/21/18 10:00 12:09 18:04 WBC RBC Hgb Hct MCV MCH MCHC RDW Plt Count Lymph % (Auto) [place] % (Auto) Eos % (Auto) Lymph # [place] # Eos # Seg Neutrophils % Seg Neutrophils # PT INR POC ABG pH POC ABG pCO2 POC ABG pO2 VBG pH Sodium Potassium Chloride 110.6 H Carbon Dioxide BUN 31 H Creatinine Glucose 119 H POC Glucose 116 H 126 H Calcium Magnesium AST ALT Alkaline Phosphatase Total Creatine Kinase NT-Pro-B Natriuret Pep Albumin Urine WBC (Auto) Crossmatch 11/22/18 11/22/18 11/22/18 00:14 05:47 06:23 WBC RBC Hgb Hct MCV MCH MCHC RDW Plt Count Lymph % (Auto) [place] % (Auto) Eos % (Auto) Lymph # [place] # Eos # Seg Neutrophils % Seg Neutrophils # PT INR POC ABG pH POC ABG pCO2 POC ABG pO2 VBG pH Sodium Potassium Chloride 107.6 H Carbon Dioxide BUN 32 H Creatinine 0.7 L Glucose 116 H POC Glucose 122 H 119 H Calcium Magnesium AST ALT Alkaline Phosphatase Total Creatine Kinase NT-Pro-B Natriuret Pep Albumin Urine WBC (Auto) Crossmatch 11/22/18 11/22/18 11/22/18 08:40 12:19 17:39 WBC RBC Hgb Hct MCV MCH MCHC RDW Plt Count Lymph % (Auto) [place] % (Auto) Eos % (Auto) Lymph # [place] # Eos # Seg Neutrophils % Seg Neutrophils # PT INR POC ABG pH POC ABG pCO2 POC ABG pO2 VBG pH Sodium Potassium Chloride Carbon Dioxide BUN Creatinine Glucose POC Glucose 150 H 111 H 108 H Calcium Magnesium AST ALT Alkaline Phosphatase Total Creatine Kinase NT-Pro-B Natriuret Pep Albumin Urine WBC (Auto) Crossmatch 11/23/18 11/23/18 11/23/18 00:36 05:37 05:56 WBC RBC Hgb Hct MCV MCH MCHC RDW Plt Count Lymph % (Auto) [place] % (Auto) Eos % (Auto) Lymph # [place] # Eos # Seg Neutrophils % Seg Neutrophils # PT INR POC ABG pH POC ABG pCO2 POC ABG pO2 VBG pH Sodium 136 L Potassium Chloride Carbon Dioxide BUN 30 H Creatinine 0.7 L Glucose 103 H POC Glucose 125 H 122 H Calcium Magnesium 2.50 H AST ALT Alkaline Phosphatase Total Creatine Kinase NT-Pro-B Natriuret Pep Albumin Urine WBC (Auto) Crossmatch 11/23/18 11/23/18 11/23/18 11:56 17:39 23:40 WBC RBC Hgb Hct MCV MCH MCHC RDW Plt Count Lymph % (Auto) [place] % (Auto) Eos % (Auto) Lymph # [place] # Eos # Seg Neutrophils % Seg Neutrophils # PT INR POC ABG pH POC ABG pCO2 POC ABG pO2 VBG pH Sodium Potassium Chloride Carbon Dioxide BUN Creatinine Glucose POC Glucose 121 H 113 H 117 H Calcium Magnesium AST ALT Alkaline Phosphatase Total Creatine Kinase NT-Pro-B Natriuret Pep Albumin Urine WBC (Auto) Crossmatch 11/24/18 11/24/18 11/24/18 05:13 12:00 18:13 WBC RBC Hgb Hct MCV MCH MCHC RDW Plt Count Lymph % (Auto) [place] % (Auto) Eos % (Auto) Lymph # [place] # Eos # Seg Neutrophils % Seg Neutrophils # PT INR POC ABG pH POC ABG pCO2 POC ABG pO2 VBG pH Sodium Potassium Chloride Carbon Dioxide BUN Creatinine Glucose POC Glucose 143 H 123 H 124 H Calcium Magnesium AST ALT Alkaline Phosphatase Total Creatine Kinase NT-Pro-B Natriuret Pep Albumin Urine WBC (Auto) Crossmatch 11/24/18 11/25/18 11/25/18 23:34 05:25 05:25 WBC RBC 2.48 L Hgb 6.8 L Hct 21.2 L MCV MCH MCHC RDW 17.7 H Plt Count Lymph % (Auto) [place] % (Auto) Eos % (Auto) Lymph # [place] # Eos # Seg Neutrophils % Seg Neutrophils # PT INR POC ABG pH POC ABG pCO2 POC ABG pO2 VBG pH Sodium Potassium Chloride 108.8 H Carbon Dioxide BUN 30 H Creatinine 0.7 L Glucose 112 H POC Glucose 115 H Calcium Magnesium AST ALT Alkaline Phosphatase Total Creatine Kinase NT-Pro-B Natriuret Pep Albumin Urine WBC (Auto) Crossmatch 11/25/18 11/25/18 11/25/18 06:46 11:15 11:28 WBC RBC Hgb 7.4 L Hct 23.0 L MCV MCH MCHC RDW Plt Count Lymph % (Auto) [place] % (Auto) Eos % (Auto) Lymph # [place] # Eos # Seg Neutrophils % Seg Neutrophils # PT INR POC ABG pH POC ABG pCO2 POC ABG pO2 VBG pH Sodium Potassium Chloride Carbon Dioxide BUN Creatinine Glucose POC Glucose 133 H 127 H Calcium Magnesium AST ALT Alkaline Phosphatase Total Creatine Kinase NT-Pro-B Natriuret Pep Albumin Urine WBC (Auto) Crossmatch 11/25/18 11/25/18 11/25/18 15:28 17:32 23:45 WBC RBC Hgb Hct MCV MCH MCHC RDW Plt Count Lymph % (Auto) [place] % (Auto) Eos % (Auto) Lymph # [place] # Eos # Seg Neutrophils % Seg Neutrophils # PT INR POC ABG pH POC ABG pCO2 POC ABG pO2 VBG pH Sodium Potassium Chloride Carbon Dioxide BUN Creatinine Glucose POC Glucose 115 H 130 H Calcium Magnesium AST ALT Alkaline Phosphatase Total Creatine Kinase NT-Pro-B Natriuret Pep Albumin Urine WBC (Auto) Crossmatch See Detail 11/26/18 11/26/18 11/26/18 06:13 06:20 06:20 WBC RBC 2.76 L Hgb 7.7 L Hct 23.4 L MCV MCH MCHC RDW 17.5 H Plt Count Lymph % (Auto) [place] % (Auto) Eos % (Auto) Lymph # [place] # Eos # Seg Neutrophils % Seg Neutrophils # PT INR POC ABG pH POC ABG pCO2 POC ABG pO2 VBG pH Sodium Potassium Chloride 109.9 H Carbon Dioxide BUN 30 H Creatinine 0.6 L Glucose 121 H POC Glucose 129 H Calcium Magnesium AST ALT Alkaline Phosphatase Total Creatine Kinase NT-Pro-B Natriuret Pep Albumin Urine WBC (Auto) Crossmatch 11/26/18 11/26/18 11/27/18 12:06 16:35 06:04 WBC RBC Hgb Hct MCV MCH MCHC RDW Plt Count Lymph % (Auto) [place] % (Auto) Eos % (Auto) Lymph # [place] # Eos # Seg Neutrophils % Seg Neutrophils # PT INR POC ABG pH POC ABG pCO2 POC ABG pO2 VBG pH Sodium Potassium Chloride Carbon Dioxide BUN Creatinine Glucose POC Glucose 139 H 107 H 126 H Calcium Magnesium AST ALT Alkaline Phosphatase Total Creatine Kinase NT-Pro-B Natriuret Pep Albumin Urine WBC (Auto) Crossmatch 11/27/18 11/27/1811/28/19 13:14 17:47 07:03 WBC RBC Hgb Hct MCV MCH MCHC RDW Plt Count Lymph % (Auto) [place] % (Auto) Eos % (Auto) Lymph # [place] # Eos # Seg Neutrophils % Seg Neutrophils # PT INR POC ABG pH POC ABG pCO2 POC ABG pO2 VBG pH Sodium Potassium Chloride Carbon Dioxide BUN Creatinine Glucose POC Glucose 130 H 115 H 118 H Calcium Magnesium AST ALT Alkaline Phosphatase Total Creatine Kinase NT-Pro-B Natriuret Pep Albumin Urine WBC (Auto) Crossmatch 11/28/18 11/29/18 11/29/18 11:38 00:35 04:56 WBC RBC Hgb Hct MCV MCH MCHC RDW Plt Count Lymph % (Auto) [place] % (Auto) Eos % (Auto) Lymph # [place] # Eos # Seg Neutrophils % Seg Neutrophils # PT INR POC ABG pH POC ABG pCO2 POC ABG pO2 VBG pH Sodium Potassium Chloride Carbon Dioxide BUN Creatinine Glucose POC Glucose 126 H 107 H Calcium Magnesium AST ALT Alkaline Phosphatase Total Creatine Kinase 50 L NT-Pro-B Natriuret Pep Albumin Urine WBC (Auto) Crossmatch 11/29/18 11/29/18 11/29/18 05:49 11:46 18:17 WBC RBC Hgb Hct MCV MCH MCHC RDW Plt Count Lymph % (Auto) [place] % (Auto) Eos % (Auto) Lymph # [place] # Eos # Seg Neutrophils % Seg Neutrophils # PT INR POC ABG pH POC ABG pCO2 POC ABG pO2 VBG pH Sodium Potassium Chloride Carbon Dioxide BUN Creatinine Glucose POC Glucose 128 H 140 H 115 H Calcium Magnesium AST ALT Alkaline Phosphatase Total Creatine Kinase NT-Pro-B Natriuret Pep Albumin Urine WBC (Auto) Crossmatch 11/30/18 11/30/18 11/30/18 00:00 03:30 03:30 WBC RBC 2.97 L Hgb 8.1 L Hct 25.5 L MCV MCH 27 L MCHC RDW 17.7 H Plt Count Lymph % (Auto) 9.2 L [place] % (Auto) 10.0 H Eos % (Auto) 4.6 H Lymph # 1.0 L [place] # 1.1 H Eos # 0.5 H Seg Neutrophils % 75.6 H Seg Neutrophils # 8.4 H PT INR POC ABG pH POC ABG pCO2 POC ABG pO2 VBG pH Sodium Potassium Chloride Carbon Dioxide BUN 31 H Creatinine 0.7 L Glucose POC Glucose 120 H Calcium Magnesium AST ALT Alkaline Phosphatase Total Creatine Kinase NT-Pro-B Natriuret Pep Albumin Urine WBC (Auto) Crossmatch 11/30/18 11/30/18 11/30/18 06:54 11:45 16:59 WBC RBC Hgb Hct MCV MCH MCHC RDW Plt Count Lymph % (Auto) [place] % (Auto) Eos % (Auto) Lymph # [place] # Eos # Seg Neutrophils % Seg Neutrophils # PT INR POC ABG pH POC ABG pCO2 POC ABG pO2 VBG pH Sodium Potassium Chloride Carbon Dioxide BUN Creatinine Glucose POC Glucose 120 H 123 H 111 H Calcium Magnesium AST ALT Alkaline Phosphatase Total Creatine Kinase NT-Pro-B Natriuret Pep Albumin Urine WBC (Auto) Crossmatch 12/01/18 12/01/18 12/01/18 00:20 05:58 11:33 WBC RBC Hgb Hct MCV MCH MCHC RDW Plt Count Lymph % (Auto) [place] % (Auto) Eos % (Auto) Lymph # [place] # Eos # Seg Neutrophils % Seg Neutrophils # PT INR POC ABG pH POC ABG pCO2 POC ABG pO2 VBG pH Sodium Potassium Chloride Carbon Dioxide BUN Creatinine Glucose POC Glucose 113 H 127 H 138 H Calcium Magnesium AST ALT Alkaline Phosphatase Total Creatine Kinase NT-Pro-B Natriuret Pep Albumin Urine WBC (Auto) Crossmatch 12/02/18 12/03/18 12/03/18 00:33 05:07 05:07 WBC RBC 2.93 L Hgb 8.2 L Hct 24.9 L MCV MCH MCHC RDW 17.0 H Plt Count 470 H Lymph % (Auto) 9.3 L [place] % (Auto) 8.6 H Eos % (Auto) 5.4 H Lymph # 0.9 L [place] # Eos # 0.5 H Seg Neutrophils % 75.8 H Seg Neutrophils # PT INR POC ABG pH POC ABG pCO2 POC ABG pO2 VBG pH Sodium Potassium Chloride Carbon Dioxide BUN 30 H Creatinine 0.6 L Glucose 115 H POC Glucose 110 H Calcium Magnesium AST ALT Alkaline Phosphatase Total Creatine Kinase NT-Pro-B Natriuret Pep Albumin Urine WBC (Auto) Crossmatch 12/03/18 12/03/18 12/03/18 05:58 11:49 17:44 WBC RBC Hgb Hct MCV MCH MCHC RDW Plt Count Lymph % (Auto) [place] % (Auto) Eos % (Auto) Lymph # [place] # Eos # Seg Neutrophils % Seg Neutrophils # PT INR POC ABG pH POC ABG pCO2 POC ABG pO2 VBG pH Sodium Potassium Chloride Carbon Dioxide BUN Creatinine Glucose POC Glucose 127 H 138 H 127 H Calcium Magnesium AST ALT Alkaline Phosphatase Total Creatine Kinase NT-Pro-B Natriuret Pep Albumin Urine WBC (Auto) Crossmatch 12/05/18 12/05/18 12/05/18 00:22 05:53 17:18 WBC RBC Hgb Hct MCV MCH MCHC RDW Plt Count Lymph % (Auto) [place] % (Auto) Eos % (Auto) Lymph # [place] # Eos # Seg Neutrophils % Seg Neutrophils # PT INR POC ABG pH POC ABG pCO2 POC ABG pO2 VBG pH Sodium Potassium Chloride Carbon Dioxide BUN Creatinine Glucose POC Glucose 124 H 121 H 112 H Calcium Magnesium AST ALT Alkaline Phosphatase Total Creatine Kinase NT-Pro-B Natriuret Pep Albumin Urine WBC (Auto) Crossmatch 12/06/18 12/06/18 12/06/18 00:07 06:16 11:43 WBC RBC Hgb Hct MCV MCH MCHC RDW Plt Count Lymph % (Auto) [place] % (Auto) Eos % (Auto) Lymph # [place] # Eos # Seg Neutrophils % Seg Neutrophils # PT INR POC ABG pH POC ABG pCO2 POC ABG pO2 VBG pH Sodium Potassium Chloride Carbon Dioxide BUN Creatinine Glucose POC Glucose 111 H 117 H 121 H Calcium Magnesium AST ALT Alkaline Phosphatase Total Creatine Kinase NT-Pro-B Natriuret Pep Albumin Urine WBC (Auto) Crossmatch 12/06/18 12/07/18 12/07/18 20:57 06:41 12:09 WBC RBC Hgb Hct MCV MCH MCHC RDW Plt Count Lymph % (Auto) [place] % (Auto) Eos % (Auto) Lymph # [place] # Eos # Seg Neutrophils % Seg Neutrophils # PT INR POC ABG pH POC ABG pCO2 POC ABG pO2 VBG pH Sodium Potassium Chloride 107.2 H Carbon Dioxide BUN 27 H Creatinine 0.7 L Glucose POC Glucose 128 H 137 H Calcium Magnesium 2.50 H AST ALT Alkaline Phosphatase Total Creatine Kinase NT-Pro-B Natriuret Pep Albumin Urine WBC (Auto) Crossmatch 12/07/18 12/08/18 12/08/18 19:29 05:44 12:27 WBC RBC Hgb Hct MCV MCH MCHC RDW Plt Count Lymph % (Auto) [place] % (Auto) Eos % (Auto) Lymph # [place] # Eos # Seg Neutrophils % Seg Neutrophils # PT INR POC ABG pH POC ABG pCO2 POC ABG pO2 VBG pH Sodium Potassium Chloride Carbon Dioxide BUN Creatinine Glucose POC Glucose 110 H 126 H 130 H Calcium Magnesium AST ALT Alkaline Phosphatase Total Creatine Kinase NT-Pro-B Natriuret Pep Albumin Urine WBC (Auto) Crossmatch 12/08/18 12/09/18 12/09/18 17:44 00:20 06:42 WBC RBC Hgb Hct MCV MCH MCHC RDW Plt Count Lymph % (Auto) [place] % (Auto) Eos % (Auto) Lymph # [place] # Eos # Seg Neutrophils % Seg Neutrophils # PT INR POC ABG pH POC ABG pCO2 POC ABG pO2 VBG pH Sodium Potassium Chloride Carbon Dioxide BUN Creatinine Glucose POC Glucose 113 H 121 H 124 H Calcium Magnesium AST ALT Alkaline Phosphatase Total Creatine Kinase NT-Pro-B Natriuret Pep Albumin Urine WBC (Auto) Crossmatch 12/09/18 12/09/18 12/09/18 12:24 18:41 23:48 WBC RBC Hgb Hct MCV MCH MCHC RDW Plt Count Lymph % (Auto) [place] % (Auto) Eos % (Auto) Lymph # [place] # Eos # Seg Neutrophils % Seg Neutrophils # PT INR POC ABG pH POC ABG pCO2 POC ABG pO2 VBG pH Sodium Potassium Chloride Carbon Dioxide BUN Creatinine Glucose POC Glucose 114 H 109 H 128 H Calcium Magnesium AST ALT Alkaline Phosphatase Total Creatine Kinase NT-Pro-B Natriuret Pep Albumin Urine WBC (Auto) Crossmatch 12/10/18 12/10/18 12/11/18 07:07 11:28 00:24 WBC RBC Hgb Hct MCV MCH MCHC RDW Plt Count Lymph % (Auto) [place] % (Auto) Eos % (Auto) Lymph # [place] # Eos # Seg Neutrophils % Seg Neutrophils # PT INR POC ABG pH POC ABG pCO2 POC ABG pO2 VBG pH Sodium Potassium Chloride Carbon Dioxide BUN Creatinine Glucose POC Glucose 111 H 110 H 112 H Calcium Magnesium AST ALT Alkaline Phosphatase Total Creatine Kinase NT-Pro-B Natriuret Pep Albumin Urine WBC (Auto) Crossmatch 12/11/18 12/11/18 12/11/18 06:44 11:53 18:17 WBC RBC Hgb Hct MCV MCH MCHC RDW Plt Count Lymph % (Auto) [place] % (Auto) Eos % (Auto) Lymph # [place] # Eos # Seg Neutrophils % Seg Neutrophils # PT INR POC ABG pH POC ABG pCO2 POC ABG pO2 VBG pH Sodium Potassium Chloride Carbon Dioxide BUN Creatinine Glucose POC Glucose 111 H 132 H 133 H Calcium Magnesium AST ALT Alkaline Phosphatase Total Creatine Kinase NT-Pro-B Natriuret Pep Albumin Urine WBC (Auto) Crossmatch 12/11/18 12/12/18 12/12/18 23:58 00:05 06:11 WBC RBC 2.85 L Hgb 7.8 L Hct 24.4 L MCV MCH 27 L MCHC RDW 17.4 H Plt Count 459 H Lymph % (Auto) [place] % (Auto) 11.2 H Eos % (Auto) 5.4 H Lymph # [place] # 1.1 H Eos # 0.5 H Seg Neutrophils % Seg Neutrophils # PT INR POC ABG pH POC ABG pCO2 POC ABG pO2 VBG pH Sodium Potassium Chloride Carbon Dioxide BUN Creatinine Glucose POC Glucose 126 H 144 H Calcium Magnesium AST ALT Alkaline Phosphatase Total Creatine Kinase NT-Pro-B Natriuret Pep Albumin Urine WBC (Auto) Crossmatch 12/12/18 12/12/18 12/13/18 11:42 18:36 00:12 WBC RBC Hgb Hct MCV MCH MCHC RDW Plt Count Lymph % (Auto) [place] % (Auto) Eos % (Auto) Lymph # [place] # Eos # Seg Neutrophils % Seg Neutrophils # PT INR POC ABG pH POC ABG pCO2 POC ABG pO2 VBG pH Sodium Potassium Chloride Carbon Dioxide BUN Creatinine Glucose POC Glucose 106 H 117 H 115 H Calcium Magnesium AST ALT Alkaline Phosphatase Total Creatine Kinase NT-Pro-B Natriuret Pep Albumin Urine WBC (Auto) Crossmatch 12/13/18 12/13/18 12/13/18 05:58 11:52 23:57 WBC RBC Hgb Hct MCV MCH MCHC RDW Plt Count Lymph % (Auto) [place] % (Auto) Eos % (Auto) Lymph # [place] # Eos # Seg Neutrophils % Seg Neutrophils # PT INR POC ABG pH POC ABG pCO2 POC ABG pO2 VBG pH Sodium Potassium Chloride Carbon Dioxide BUN Creatinine Glucose POC Glucose 122 H 129 H 125 H Calcium Magnesium AST ALT Alkaline Phosphatase Total Creatine Kinase NT-Pro-B Natriuret Pep Albumin Urine WBC (Auto) Crossmatch 07/12/14/18 12/14/18 04:44 04:44 05:44 WBC RBC 2.56 L Hgb 7.2 L Hct 22.1 L MCV MCH MCHC RDW 17.8 H Plt Count 473 H Lymph % (Auto) [place] % (Auto) 11.5 H Eos % (Auto) 4.8 H Lymph # [place] # 1.1 H Eos # Seg Neutrophils % Seg Neutrophils # PT INR POC ABG pH POC ABG pCO2 POC ABG pO2 VBG pH Sodium 151 H Potassium Chloride 116.7 H Carbon Dioxide BUN 40 H Creatinine Glucose 114 H POC Glucose 117 H Calcium Magnesium AST 80 H ALT 67 H Alkaline Phosphatase 247 H Total Creatine Kinase NT-Pro-B Natriuret Pep Albumin 1.9 L Urine WBC (Auto) Crossmatch 12/14/18 12/15/18 12/15/18 11:29 00:01 05:13 WBC RBC 2.68 L Hgb 7.4 L Hct 23.1 L MCV MCH MCHC RDW 17.6 H Plt Count 454 H Lymph % (Auto) 13.3 L [place] % (Auto) 9.7 H Eos % (Auto) 6.9 H Lymph # [place] # Eos # 0.6 H Seg Neutrophils % Seg Neutrophils # PT INR POC ABG pH POC ABG pCO2 POC ABG pO2 VBG pH Sodium Potassium Chloride Carbon Dioxide BUN Creatinine Glucose POC Glucose 115 H 113 H Calcium Magnesium AST ALT Alkaline Phosphatase Total Creatine Kinase NT-Pro-B Natriuret Pep Albumin Urine WBC (Auto) Crossmatch 12/15/18 12/15/18 12/15/18 05:13 06:31 11:31 WBC RBC Hgb Hct MCV MCH MCHC RDW Plt Count Lymph % (Auto) [place] % (Auto) Eos % (Auto) Lymph # [place] # Eos # Seg Neutrophils % Seg Neutrophils # PT INR POC ABG pH POC ABG pCO2 POC ABG pO2 VBG pH Sodium 151 H Potassium Chloride 116.4 H Carbon Dioxide BUN 39 H Creatinine Glucose 110 H POC Glucose 130 H 127 H Calcium Magnesium AST 85 H ALT 78 H Alkaline Phosphatase 255 H Total Creatine Kinase NT-Pro-B Natriuret Pep Albumin 1.9 L Urine WBC (Auto) Crossmatch 12/15/18 12/16/18 12/16/18 17:54 00:27 00:33 WBC RBC Hgb Hct MCV MCH MCHC RDW Plt Count Lymph % (Auto) [place] % (Auto) Eos % (Auto) Lymph # [place] # Eos # Seg Neutrophils % Seg Neutrophils # PT INR POC ABG pH POC ABG pCO2 POC ABG pO2 VBG pH Sodium Potassium Chloride Carbon Dioxide BUN Creatinine Glucose POC Glucose 122 H 131 H Calcium Magnesium AST ALT Alkaline Phosphatase Total Creatine Kinase 50 L NT-Pro-B Natriuret Pep Albumin Urine WBC (Auto) Crossmatch 12/16/18 12/16/18 12/16/18 05:31 11:31 17:22 WBC RBC Hgb Hct MCV MCH MCHC RDW Plt Count Lymph % (Auto) [place] % (Auto) Eos % (Auto) Lymph # [place] # Eos # Seg Neutrophils % Seg Neutrophils # PT INR POC ABG pH POC ABG pCO2 POC ABG pO2 VBG pH Sodium Potassium Chloride Carbon Dioxide BUN Creatinine Glucose POC Glucose 138 H 121 H 114 H Calcium Magnesium AST ALT Alkaline Phosphatase Total Creatine Kinase NT-Pro-B Natriuret Pep Albumin Urine WBC (Auto) Crossmatch 12/16/18 12/17/18 12/17/18 23:56 05:01 05:01 WBC 11.1 H RBC 2.96 L Hgb 7.9 L Hct 25.7 L MCV MCH 27 L MCHC 31 L RDW 17.9 H Plt Count 479 H Lymph % (Auto) 11.3 L [place] % (Auto) 7.5 H Eos % (Auto) 4.5 H Lymph # [place] # Eos # 0.5 H Seg Neutrophils % 75.9 H Seg Neutrophils # 8.4 H PT INR POC ABG pH POC ABG pCO2 POC ABG pO2 VBG pH Sodium 155 H Potassium Chloride 121.2 H Carbon Dioxide BUN 41 H Creatinine Glucose 122 H POC Glucose 137 H Calcium Magnesium AST 97 H ALT 99 H Alkaline Phosphatase 279 H Total Creatine Kinase NT-Pro-B Natriuret Pep Albumin 1.8 L Urine WBC (Auto) Crossmatch 12/17/18 12/17/18 12/18/18 11:52 18:17 00:17 WBC RBC Hgb Hct MCV MCH MCHC RDW Plt Count Lymph % (Auto) [place] % (Auto) Eos % (Auto) Lymph # [place] # Eos # Seg Neutrophils % Seg Neutrophils # PT INR POC ABG pH POC ABG pCO2 POC ABG pO2 VBG pH Sodium Potassium Chloride Carbon Dioxide BUN Creatinine Glucose POC Glucose 142 H 140 H 160 H Calcium Magnesium AST ALT Alkaline Phosphatase Total Creatine Kinase NT-Pro-B Natriuret Pep Albumin Urine WBC (Auto) Crossmatch 12/18/18 12/18/18 12/18/18 05:39 05:40 05:40 WBC 11.7 H RBC 2.76 L Hgb 7.5 L Hct 23.8 L MCV MCH 27 L MCHC 31 L RDW 17.8 H Plt Count Lymph % (Auto) [place] % (Auto) Eos % (Auto) Lymph # [place] # Eos # Seg Neutrophils % Seg Neutrophils # PT INR POC ABG pH POC ABG pCO2 POC ABG pO2 VBG pH Sodium 153 H Potassium Chloride 117.6 H Carbon Dioxide BUN 48 H Creatinine Glucose 122 H POC Glucose 138 H Calcium Magnesium AST ALT Alkaline Phosphatase Total Creatine Kinase NT-Pro-B Natriuret Pep Albumin Urine WBC (Auto) Crossmatch 12/18/18 12/18/18 12/19/18 11:32 17:26 00:38 WBC RBC Hgb Hct MCV MCH MCHC RDW Plt Count Lymph % (Auto) [place] % (Auto) Eos % (Auto) Lymph # [place] # Eos # Seg Neutrophils % Seg Neutrophils # PT INR POC ABG pH POC ABG pCO2 POC ABG pO2 VBG pH Sodium Potassium Chloride Carbon Dioxide BUN Creatinine Glucose POC Glucose 136 H 125 H 126 H Calcium Magnesium AST ALT Alkaline Phosphatase Total Creatine Kinase NT-Pro-B Natriuret Pep Albumin Urine WBC (Auto) Crossmatch 12/19/18 12/19/18 12/19/18 05:22 05:22 06:19 WBC 12.2 H RBC 2.86 L Hgb 7.6 L Hct 24.4 L MCV MCH 27 L MCHC 31 L RDW 17.8 H Plt Count Lymph % (Auto) [place] % (Auto) Eos % (Auto) Lymph # [place] # Eos # Seg Neutrophils % Seg Neutrophils # PT INR POC ABG pH POC ABG pCO2 POC ABG pO2 VBG pH Sodium Potassium 5.9 H D Chloride 109.7 H Carbon Dioxide BUN 45 H Creatinine Glucose 107 H POC Glucose 136 H Calcium 8.3 L Magnesium AST ALT Alkaline Phosphatase Total Creatine Kinase NT-Pro-B Natriuret Pep Albumin Urine WBC (Auto) Crossmatch 12/19/18 12/19/18 12/19/18 08:23 11:44 17:09 WBC RBC Hgb Hct MCV MCH MCHC RDW Plt Count Lymph % (Auto) [place] % (Auto) Eos % (Auto) Lymph # [place] # Eos # Seg Neutrophils % Seg Neutrophils # PT INR POC ABG pH POC ABG pCO2 POC ABG pO2 VBG pH Sodium Potassium Chloride 107.7 H Carbon Dioxide BUN 42 H Creatinine Glucose 118 H POC Glucose 130 H 118 H Calcium Magnesium AST ALT Alkaline Phosphatase Total Creatine Kinase NT-Pro-B Natriuret Pep Albumin Urine WBC (Auto) Crossmatch 12/19/18 12/20/18 12/20/18 23:59 05:52 06:24 WBC RBC Hgb Hct MCV MCH MCHC RDW Plt Count Lymph % (Auto) [place] % (Auto) Eos % (Auto) Lymph # [place] # Eos # Seg Neutrophils % Seg Neutrophils # PT INR POC ABG pH POC ABG pCO2 POC ABG pO2 VBG pH Sodium Potassium 5.2 H Chloride 107.2 H Carbon Dioxide 21 L BUN 44 H Creatinine Glucose 118 H POC Glucose 150 H 138 H Calcium Magnesium AST ALT Alkaline Phosphatase Total Creatine Kinase NT-Pro-B Natriuret Pep Albumin Urine WBC (Auto) Crossmatch 12/20/18 12/20/18 12/21/18 11:34 17:10 00:07 WBC RBC Hgb Hct MCV MCH MCHC RDW Plt Count Lymph % (Auto) [place] % (Auto) Eos % (Auto) Lymph # [place] # Eos # Seg Neutrophils % Seg Neutrophils # PT INR POC ABG pH POC ABG pCO2 POC ABG pO2 VBG pH Sodium Potassium Chloride Carbon Dioxide BUN Creatinine Glucose POC Glucose 134 H 141 H 145 H Calcium Magnesium AST ALT Alkaline Phosphatase Total Creatine Kinase NT-Pro-B Natriuret Pep Albumin Urine WBC (Auto) Crossmatch 12/21/18 12/21/18 12/21/18 05:37 05:37 06:58 WBC 12.3 H RBC 2.67 L Hgb 7.1 L Hct 22.4 L MCV MCH 27 L MCHC RDW 17.5 H Plt Count Lymph % (Auto) [place] % (Auto) Eos % (Auto) Lymph # [place] # Eos # Seg Neutrophils % Seg Neutrophils # PT INR POC ABG pH POC ABG pCO2 POC ABG pO2 VBG pH Sodium Potassium Chloride Carbon Dioxide BUN 42 H Creatinine Glucose 127 H POC Glucose 152 H Calcium Magnesium AST ALT Alkaline Phosphatase Total Creatine Kinase NT-Pro-B Natriuret Pep Albumin Urine WBC (Auto) Crossmatch 12/21/18 12/21/18 12/22/18 12:06 17:43 00:11 WBC RBC Hgb Hct MCV MCH MCHC RDW Plt Count Lymph % (Auto) [place] % (Auto) Eos % (Auto) Lymph # [place] # Eos # Seg Neutrophils % Seg Neutrophils # PT INR POC ABG pH POC ABG pCO2 POC ABG pO2 VBG pH Sodium Potassium Chloride Carbon Dioxide BUN Creatinine Glucose POC Glucose 140 H 122 H 128 H Calcium Magnesium AST ALT Alkaline Phosphatase Total Creatine Kinase NT-Pro-B Natriuret Pep Albumin Urine WBC (Auto) Crossmatch 12/22/18 12/22/18 12/22/18 05:42 05:42 06:35 WBC 12.8 H RBC 2.82 L Hgb 7.5 L Hct 23.4 L MCV 83 L MCH 27 L MCHC RDW 17.2 H Plt Count Lymph % (Auto) [place] % (Auto) Eos % (Auto) Lymph # [place] # Eos # Seg Neutrophils % Seg Neutrophils # PT INR POC ABG pH POC ABG pCO2 POC ABG pO2 VBG pH Sodium Potassium Chloride Carbon Dioxide BUN 48 H Creatinine Glucose 115 H POC Glucose 120 H Calcium Magnesium AST ALT Alkaline Phosphatase Total Creatine Kinase NT-Pro-B Natriuret Pep Albumin Urine WBC (Auto) Crossmatch 12/22/18 12/22/18 12/23/18 11:30 18:30 00:02 WBC RBC Hgb Hct MCV MCH MCHC RDW Plt Count Lymph % (Auto) [place] % (Auto) Eos % (Auto) Lymph # [place] # Eos # Seg Neutrophils % Seg Neutrophils # PT INR POC ABG pH POC ABG pCO2 POC ABG pO2 VBG pH Sodium Potassium Chloride Carbon Dioxide BUN Creatinine Glucose POC Glucose 151 H 124 H 169 H Calcium Magnesium AST ALT Alkaline Phosphatase Total Creatine Kinase NT-Pro-B Natriuret Pep Albumin Urine WBC (Auto) Crossmatch 12/23/18 12/23/18 12/23/18 00:51 05:30 06:09 WBC RBC 2.91 L Hgb 7.7 L Hct 24.3 L MCV 83 L MCH 26 L MCHC RDW 17.4 H Plt Count Lymph % (Auto) [place] % (Auto) 12.3 H Eos % (Auto) Lymph # [place] # 1.4 H Eos # Seg Neutrophils % 70.7 H Seg Neutrophils # 7.8 H PT INR POC ABG pH POC ABG pCO2 POC ABG pO2 VBG pH Sodium Potassium Chloride Carbon Dioxide BUN 58 H Creatinine Glucose 121 H POC Glucose 146 H Calcium 7.8 L Magnesium AST ALT Alkaline Phosphatase Total Creatine Kinase NT-Pro-B Natriuret Pep Albumin Urine WBC (Auto) Crossmatch 12/23/18 11:34 WBC RBC Hgb Hct MCV MCH MCHC RDW Plt Count Lymph % (Auto) [place] % (Auto) Eos % (Auto) Lymph # [place] # Eos # Seg Neutrophils % Seg Neutrophils # PT INR POC ABG pH POC ABG pCO2 POC ABG pO2 VBG pH Sodium Potassium Chloride Carbon Dioxide BUN Creatinine Glucose POC Glucose 153 H Calcium Magnesium AST ALT Alkaline Phosphatase Total Creatine Kinase NT-Pro-B Natriuret Pep Albumin Urine WBC (Auto) Crossmatch Allied health notes reviewed: nursing
[2018-12-23] MEDS ORDERED: PANCREAZE DR 10,500 UNIT FEEDTUBE PRN (16:23)
[2018-12-23] MEDS ORDERED: SODIUM BICARBONATE FEEDTUBE PRN (16:23)
[2018-12-23] MEDS ORDERED: SIMPLE SYRUP FEEDTUBE PRN ×2 (16:23)
[2018-12-23] MEDS: VANCOMYCIN 750 MG in NACL 0.9% 250ML 250 ML IV SCH (17:53)
[2018-12-23] MEDS: TYLENOL FEEDTUBE PRN (21:45)
[2018-12-24] MEDS: APRESOLINE PO SCH ×3 (05:49→21:28)
[2018-12-24 06:29] LABS: Hematocrit 20.4 % (35.5-45.6); Hemoglobin 6.5 gm/dl (11.8-15.2); Mean Corpuscular HGB Conc 32 % (32-34); Mean Corpuscular Volume 85 fl (84-94); Platelet Count 399 K/mm3 (140-440); Red Blood Count 2.41 M/mm3 (3.65-5.03); Red Cell Distribution Width 17.8 % (13.2-15.2)
[2018-12-24 06:51] LABS: BUN/Creatinine Ratio 52; Blood Urea Nitrogen 52 mg/dL (9-20); Calcium 8.7 mg/dL (8.4-10.2); Hemolysis Index 2
[2018-12-24] MEDS: MAXIPIME/NS 2 GM/100 ML 2 GM/100 ML BAG IV SCH ×3 (07:06→21:28)
[2018-12-24] MEDS: VANCOMYCIN 750 MG in NACL 0.9% 250ML 250 ML IV SCH (07:06)
[2018-12-24] MEDS: SODIUM CHLORIDE FLUSH SYRINGE 10 ML IV SCH ×3 (07:22→21:28)
--- NOTE | 2018-12-24 08:38 | Progress Note ---
Assessment and Plan Patient is weak and contracted and has multiple pressure wounds. Patients general medical condition poor and unchanged. Patient is sleeping. On room air at this time. No acute respiratory distress. O2 sat 98%. Patient afebrile. No leukocytosis. . - Patient Problems (1) Respiratory failure Current Visit: Yes Status: Acute Qualifiers: Chronicity: acute Respiratory failure complication: hypoxia Qualified Code(s): J96.01 - Acute respiratory failure with hypoxia Plan to address problem: Continue O2 supplementation 2 L via nasal canula prn for shortness of breath Albuterol and Atrovent treatment q6h. Continue SQ Levonox. Recommend GI prophylaxis. (2) Seizure Current Visit: Yes Status: Acute Plan to address problem: Management as per neurologist. (3) Sepsis Current Visit: Yes Status: Acute Plan to address problem: Patient treated with Daptomycine . Antibiotic management as per infectious diseases. (4) UTI (urinary tract infection) Current Visit: Yes Status: Acute Qualifiers: Encounter type: initial encounter Plan to address problem: Patient is treated with Daptomycine . Antibiotic management as per infectious diseases. (5) ARF (acute renal failure) with tubular necrosis Current Visit: No Status: Acute Plan to address problem: Management as per Nephrology. Subjective Date of service: 12/24/18 Principal diagnosis: Severe Sepsis; Ac. Hypoxemic Resp failure; Anemia; Seizure; UTI; BPH Interval history: Patient is weak and contracted and has multiple pressure wounds. Patients general medical condition poor and unchanged. Patient is sleeping. On room air at this time. No acute respiratory distress. O2 sat 98%. Patient afebrile. No leukocytosis. Objective Vital Signs - 12hr 12/24/18 12/24/18 02:11 05:49 Temperature 97.7 F Pulse Rate 81 Respiratory 18 Rate Blood Pressure 116/63 116/63 O2 Sat by Pulse 98 Oximetry Constitutional: no acute distress, asleep Eyes: non-icteric ENT: oropharynx moist Neck: no lymphadenopathy, no JVD, other (mild stiffness / contracture) Effort: normal Ascultation: Bilateral: diminished breath sounds, rhonchi Percussion: Bilateral: not dull Cardiovascular: regular rate and rhythm Gastrointestinal: normoactive bowel sounds, soft, non-tender, non-distended Integumentary: rash Extremities: no cyanosis, no edema, pulses normal, other (Patient has pressure ulcer at multiple areas, including sacral area.) Neurologic: non-focal exam, pupils equal and round, CN II-XII normal, other (+ contractures) Psychiatric: mood appropriate, affect normal CBC and BMP: 12/24/18 05:59 12/24/18 05:59 ABG, PT/INR, D-dimer: ABG POC ABG pH 7.494 (7.35-7.45) H 11/01/18 15:27 POC ABG pCO2 34.5 (35-45) L 11/01/18 15:27 POC ABG pO2 139 (80-105) H 11/01/18 15:27 POC ABG HCO3 26.5 (22-26 mml/L) 11/01/18 15:27 POC ABG Total CO2 28 (23-27mmol/L) 11/01/18 15:27 POC ABG O2 Sat 99 11/01/18 15:27 PT/INR, D-dimer PT 16.3 Sec. (12.2-14.9) H 11/01/18 14:50 INR 1.35 (0.87-1.13) H 11/01/18 14:50 Abnormal lab findings: Abnormal Labs 11/01/18 11/01/18 11/01/18 14:50 14:50 14:50 WBC 15.3 H RBC 2.76 L Hgb 7.9 L Hct 23.5 L MCV MCH MCHC RDW 18.3 H Plt Count 567 H Lymph % (Auto) 6.5 L [place] % (Auto) 8.5 H Eos % (Auto) Lymph # 1.0 L [place] # 1.3 H Eos # Seg Neutrophils % 83.4 H Seg Neutrophils # 12.7 H PT 16.3 H INR 1.35 H POC ABG pH POC ABG pCO2 POC ABG pO2 VBG pH Sodium Potassium Chloride Carbon Dioxide BUN 49 H Creatinine Glucose 132 H POC Glucose Calcium Magnesium AST 90 H ALT 77 H Alkaline Phosphatase 350 H Total Creatine Kinase NT-Pro-B Natriuret Pep Albumin 1.6 L Urine WBC (Auto) Crossmatch 11/01/18 11/01/18 11/01/18 14:50 14:50 15:27 WBC RBC Hgb Hct MCV MCH MCHC RDW Plt Count Lymph % (Auto) [place] % (Auto) Eos % (Auto) Lymph # [place] # Eos # Seg Neutrophils % Seg Neutrophils # PT INR POC ABG pH 7.494 H POC ABG pCO2 34.5 L POC ABG pO2 139 H VBG pH 7.499 H Sodium Potassium Chloride Carbon Dioxide BUN Creatinine Glucose POC Glucose Calcium Magnesium AST ALT Alkaline Phosphatase Total Creatine Kinase NT-Pro-B Natriuret Pep 6776 H Albumin Urine WBC (Auto) Crossmatch 11/01/18 11/03/18 11/03/18 15:57 03:41 03:41 WBC 12.8 H RBC 2.55 L Hgb 6.9 L Hct 22.2 L MCV MCH 27 L MCHC 31 L RDW 17.9 H Plt Count 519 H Lymph % (Auto) [place] % (Auto) Eos % (Auto) Lymph # [place] # Eos # Seg Neutrophils % Seg Neutrophils # PT INR POC ABG pH POC ABG pCO2 POC ABG pO2 VBG pH Sodium 147 H Potassium Chloride 110.3 H Carbon Dioxide BUN 55 H Creatinine Glucose POC Glucose Calcium Magnesium AST ALT Alkaline Phosphatase Total Creatine Kinase NT-Pro-B Natriuret Pep Albumin Urine WBC (Auto) > 182.0 H Crossmatch 11/03/18 11/04/18 11/04/18 12:51 05:12 05:12 WBC 11.5 H RBC 2.94 L Hgb 8.3 L Hct 25.3 L MCV MCH MCHC RDW 17.3 H Plt Count 514 H Lymph % (Auto) [place] % (Auto) Eos % (Auto) Lymph # [place] # Eos # Seg Neutrophils % Seg Neutrophils # PT INR POC ABG pH POC ABG pCO2 POC ABG pO2 VBG pH Sodium 147 H Potassium Chloride 112.4 H Carbon Dioxide BUN 52 H Creatinine Glucose POC Glucose Calcium Magnesium AST ALT Alkaline Phosphatase Total Creatine Kinase NT-Pro-B Natriuret Pep Albumin Urine WBC (Auto) Crossmatch See Detail 11/05/18 11/05/18 11/06/18 04:50 04:50 05:42 WBC RBC 3.03 L 2.80 L Hgb 8.7 L 7.9 L Hct 26.6 L 24.7 L MCV MCH MCHC RDW 17.1 H 17.0 H Plt Count 502 H 478 H Lymph % (Auto) 10.4 L [place] % (Auto) 8.6 H Eos % (Auto) 4.7 H Lymph # 1.0 L [place] # Eos # 0.5 H Seg Neutrophils % 75.6 H Seg Neutrophils # PT INR POC ABG pH POC ABG pCO2 POC ABG pO2 VBG pH Sodium 149 H Potassium Chloride 114.4 H Carbon Dioxide 21 L BUN 50 H Creatinine Glucose 108 H POC Glucose Calcium Magnesium AST ALT Alkaline Phosphatase Total Creatine Kinase NT-Pro-B Natriuret Pep Albumin Urine WBC (Auto) Crossmatch 11/06/18 11/11/18 11/12/18 05:42 18:54 00:22 WBC RBC Hgb Hct MCV MCH MCHC RDW Plt Count Lymph % (Auto) [place] % (Auto) Eos % (Auto) Lymph # [place] # Eos # Seg Neutrophils % Seg Neutrophils # PT INR POC ABG pH POC ABG pCO2 POC ABG pO2 VBG pH Sodium 149 H Potassium Chloride 113.4 H Carbon Dioxide BUN 50 H Creatinine Glucose 121 H POC Glucose 114 H 123 H Calcium Magnesium AST ALT Alkaline Phosphatase Total Creatine Kinase NT-Pro-B Natriuret Pep Albumin Urine WBC (Auto) Crossmatch 11/12/18 11/12/18 11/13/18 06:49 11:35 06:34 WBC RBC Hgb Hct MCV MCH MCHC RDW Plt Count Lymph % (Auto) [place] % (Auto) Eos % (Auto) Lymph # [place] # Eos # Seg Neutrophils % Seg Neutrophils # PT INR POC ABG pH POC ABG pCO2 POC ABG pO2 VBG pH Sodium Potassium Chloride Carbon Dioxide BUN Creatinine Glucose POC Glucose 129 H 123 H 128 H Calcium Magnesium AST ALT Alkaline Phosphatase Total Creatine Kinase NT-Pro-B Natriuret Pep Albumin Urine WBC (Auto) Crossmatch 11/13/18 11/13/18 11/13/18 09:26 09:26 15:13 WBC RBC 3.08 L Hgb 8.6 L Hct 27.3 L MCV MCH MCHC 31 L RDW 18.3 H Plt Count 504 H Lymph % (Auto) 11.7 L [place] % (Auto) 7.5 H Eos % (Auto) 7.0 H Lymph # [place] # Eos # 0.7 H Seg Neutrophils % 72.9 H Seg Neutrophils # PT INR POC ABG pH POC ABG pCO2 POC ABG pO2 VBG pH Sodium 153 H Potassium 6.3 H* 5.8 H Chloride 122.3 H Carbon Dioxide 21 L BUN 38 H Creatinine Glucose 112 H POC Glucose Calcium Magnesium AST ALT Alkaline Phosphatase Total Creatine Kinase NT-Pro-B Natriuret Pep Albumin Urine WBC (Auto) Crossmatch 11/13/18 11/13/18 11/14/18 22:10 23:45 13:17 WBC RBC Hgb Hct MCV MCH MCHC RDW Plt Count Lymph % (Auto) [place] % (Auto) Eos % (Auto) Lymph # [place] # Eos # Seg Neutrophils % Seg Neutrophils # PT INR POC ABG pH POC ABG pCO2 POC ABG pO2 VBG pH Sodium 155 H Potassium 5.3 H Chloride 122.3 H Carbon Dioxide BUN 35 H Creatinine Glucose 113 H POC Glucose 111 H 142 H Calcium Magnesium AST ALT Alkaline Phosphatase Total Creatine Kinase NT-Pro-B Natriuret Pep Albumin Urine WBC (Auto) Crossmatch 11/14/18 11/15/18 11/15/18 19:08 00:31 06:45 WBC RBC Hgb Hct MCV MCH MCHC RDW Plt Count Lymph % (Auto) [place] % (Auto) Eos % (Auto) Lymph # [place] # Eos # Seg Neutrophils % Seg Neutrophils # PT INR POC ABG pH POC ABG pCO2 POC ABG pO2 VBG pH Sodium Potassium Chloride Carbon Dioxide BUN Creatinine Glucose POC Glucose 116 H 125 H 131 H Calcium Magnesium AST ALT Alkaline Phosphatase Total Creatine Kinase NT-Pro-B Natriuret Pep Albumin Urine WBC (Auto) Crossmatch 11/15/18 11/15/18 11/15/18 07:13 07:13 19:03 WBC 13.2 H RBC 2.81 L Hgb 7.8 L Hct 24.5 L MCV MCH MCHC RDW 18.2 H Plt Count 454 H Lymph % (Auto) 9.0 L [place] % (Auto) 7.5 H Eos % (Auto) Lymph # [place] # 1.0 H Eos # 0.5 H Seg Neutrophils % 78.8 H Seg Neutrophils # 10.4 H PT INR POC ABG pH POC ABG pCO2 POC ABG pO2 VBG pH Sodium 149 H Potassium 5.2 H Chloride 117.2 H Carbon Dioxide BUN 38 H Creatinine Glucose 114 H POC Glucose 141 H Calcium Magnesium AST ALT Alkaline Phosphatase Total Creatine Kinase NT-Pro-B Natriuret Pep Albumin Urine WBC (Auto) Crossmatch 11/16/18 11/16/18 11/16/18 01:15 01:15 06:45 WBC RBC Hgb Hct MCV MCH MCHC RDW Plt Count Lymph % (Auto) [place] % (Auto) Eos % (Auto) Lymph # [place] # Eos # Seg Neutrophils % Seg Neutrophils # PT INR POC ABG pH POC ABG pCO2 POC ABG pO2 VBG pH Sodium Potassium 5.3 H Chloride Carbon Dioxide BUN Creatinine Glucose POC Glucose 129 H Calcium Magnesium 2.60 H AST ALT Alkaline Phosphatase Total Creatine Kinase NT-Pro-B Natriuret Pep Albumin Urine WBC (Auto) Crossmatch 11/16/18 11/16/18 11/17/18 13:20 18:02 00:16 WBC RBC Hgb Hct MCV MCH MCHC RDW Plt Count Lymph % (Auto) [place] % (Auto) Eos % (Auto) Lymph # [place] # Eos # Seg Neutrophils % Seg Neutrophils # PT INR POC ABG pH POC ABG pCO2 POC ABG pO2 VBG pH Sodium Potassium Chloride Carbon Dioxide BUN Creatinine Glucose POC Glucose 130 H 127 H 120 H Calcium Magnesium AST ALT Alkaline Phosphatase Total Creatine Kinase NT-Pro-B Natriuret Pep Albumin Urine WBC (Auto) Crossmatch 11/17/18 11/17/18 11/17/18 05:48 08:02 08:02 WBC RBC Hgb 7.5 L Hct 23.5 L MCV MCH MCHC RDW Plt Count Lymph % (Auto) [place] % (Auto) Eos % (Auto) Lymph # [place] # Eos # Seg Neutrophils % Seg Neutrophils # PT INR POC ABG pH POC ABG pCO2 POC ABG pO2 VBG pH Sodium Potassium Chloride 110.1 H Carbon Dioxide 21 L BUN 38 H Creatinine Glucose 121 H POC Glucose 130 H Calcium Magnesium AST ALT Alkaline Phosphatase Total Creatine Kinase NT-Pro-B Natriuret Pep Albumin Urine WBC (Auto) Crossmatch 11/17/18 11/17/18 11/18/18 12:17 16:48 06:00 WBC RBC Hgb Hct MCV MCH MCHC RDW Plt Count Lymph % (Auto) [place] % (Auto) Eos % (Auto) Lymph # [place] # Eos # Seg Neutrophils % Seg Neutrophils # PT INR POC ABG pH POC ABG pCO2 POC ABG pO2 VBG pH Sodium Potassium Chloride Carbon Dioxide BUN Creatinine Glucose POC Glucose 140 H 120 H 137 H Calcium Magnesium AST ALT Alkaline Phosphatase Total Creatine Kinase NT-Pro-B Natriuret Pep Albumin Urine WBC (Auto) Crossmatch 11/19/18 11/19/18 11/19/18 00:20 05:35 06:11 WBC RBC Hgb Hct MCV MCH MCHC RDW Plt Count Lymph % (Auto) [place] % (Auto) Eos % (Auto) Lymph # [place] # Eos # Seg Neutrophils % Seg Neutrophils # PT INR POC ABG pH POC ABG pCO2 POC ABG pO2 VBG pH Sodium Potassium Chloride Carbon Dioxide BUN Creatinine Glucose POC Glucose 111 H 126 H Calcium Magnesium AST ALT Alkaline Phosphatase Total Creatine Kinase 53 L NT-Pro-B Natriuret Pep Albumin Urine WBC (Auto) Crossmatch 11/19/18 11/19/18 11/20/18 11:37 23:43 06:52 WBC RBC Hgb Hct MCV MCH MCHC RDW Plt Count Lymph % (Auto) [place] % (Auto) Eos % (Auto) Lymph # [place] # Eos # Seg Neutrophils % Seg Neutrophils # PT INR POC ABG pH POC ABG pCO2 POC ABG pO2 VBG pH Sodium Potassium Chloride Carbon Dioxide BUN Creatinine Glucose POC Glucose 139 H 145 H 125 H Calcium Magnesium AST ALT Alkaline Phosphatase Total Creatine Kinase NT-Pro-B Natriuret Pep Albumin Urine WBC (Auto) Crossmatch 11/20/18 11/20/18 11/20/18 09:55 09:55 11:49 WBC RBC 3.04 L Hgb 8.4 L Hct 26.1 L MCV MCH MCHC RDW 17.5 H Plt Count Lymph % (Auto) [place] % (Auto) Eos % (Auto) Lymph # [place] # Eos # Seg Neutrophils % Seg Neutrophils # PT INR POC ABG pH POC ABG pCO2 POC ABG pO2 VBG pH Sodium 149 H Potassium Chloride 114.5 H Carbon Dioxide 21 L BUN 35 H Creatinine Glucose 127 H POC Glucose 150 H Calcium Magnesium AST ALT Alkaline Phosphatase Total Creatine Kinase NT-Pro-B Natriuret Pep Albumin Urine WBC (Auto) Crossmatch 11/20/18 11/20/18 11/21/18 18:02 23:49 06:14 WBC RBC Hgb Hct MCV MCH MCHC RDW Plt Count Lymph % (Auto) [place] % (Auto) Eos % (Auto) Lymph # [place] # Eos # Seg Neutrophils % Seg Neutrophils # PT INR POC ABG pH POC ABG pCO2 POC ABG pO2 VBG pH Sodium Potassium Chloride Carbon Dioxide BUN Creatinine Glucose POC Glucose 131 H 137 H 133 H Calcium Magnesium AST ALT Alkaline Phosphatase Total Creatine Kinase NT-Pro-B Natriuret Pep Albumin Urine WBC (Auto) Crossmatch 11/21/18 11/21/1819 10:00 12:09 18:04 WBC RBC Hgb Hct MCV MCH MCHC RDW Plt Count Lymph % (Auto) [place] % (Auto) Eos % (Auto) Lymph # [place] # Eos # Seg Neutrophils % Seg Neutrophils # PT INR POC ABG pH POC ABG pCO2 POC ABG pO2 VBG pH Sodium Potassium Chloride 110.6 H Carbon Dioxide BUN 31 H Creatinine Glucose 119 H POC Glucose 116 H 126 H Calcium Magnesium AST ALT Alkaline Phosphatase Total Creatine Kinase NT-Pro-B Natriuret Pep Albumin Urine WBC (Auto) Crossmatch 11/22/18 11/22/18 11/22/18 00:14 05:47 06:23 WBC RBC Hgb Hct MCV MCH MCHC RDW Plt Count Lymph % (Auto) [place] % (Auto) Eos % (Auto) Lymph # [place] # Eos # Seg Neutrophils % Seg Neutrophils # PT INR POC ABG pH POC ABG pCO2 POC ABG pO2 VBG pH Sodium Potassium Chloride 107.6 H Carbon Dioxide BUN 32 H Creatinine 0.7 L Glucose 116 H POC Glucose 122 H 119 H Calcium Magnesium AST ALT Alkaline Phosphatase Total Creatine Kinase NT-Pro-B Natriuret Pep Albumin Urine WBC (Auto) Crossmatch 11/22/18 11/22/18 11/22/18 08:40 12:19 17:39 WBC RBC Hgb Hct MCV MCH MCHC RDW Plt Count Lymph % (Auto) [place] % (Auto) Eos % (Auto) Lymph # [place] # Eos # Seg Neutrophils % Seg Neutrophils # PT INR POC ABG pH POC ABG pCO2 POC ABG pO2 VBG pH Sodium Potassium Chloride Carbon Dioxide BUN Creatinine Glucose POC Glucose 150 H 111 H 108 H Calcium Magnesium AST ALT Alkaline Phosphatase Total Creatine Kinase NT-Pro-B Natriuret Pep Albumin Urine WBC (Auto) Crossmatch 11/23/18 11/23/18 11/23/18 00:36 05:37 05:56 WBC RBC Hgb Hct MCV MCH MCHC RDW Plt Count Lymph % (Auto) [place] % (Auto) Eos % (Auto) Lymph # [place] # Eos # Seg Neutrophils % Seg Neutrophils # PT INR POC ABG pH POC ABG pCO2 POC ABG pO2 VBG pH Sodium 136 L Potassium Chloride Carbon Dioxide BUN 30 H Creatinine 0.7 L Glucose 103 H POC Glucose 125 H 122 H Calcium Magnesium 2.50 H AST ALT Alkaline Phosphatase Total Creatine Kinase NT-Pro-B Natriuret Pep Albumin Urine WBC (Auto) Crossmatch 11/23/18 11/23/18 11/23/18 11:56 17:39 23:40 WBC RBC Hgb Hct MCV MCH MCHC RDW Plt Count Lymph % (Auto) [place] % (Auto) Eos % (Auto) Lymph # [place] # Eos # Seg Neutrophils % Seg Neutrophils # PT INR POC ABG pH POC ABG pCO2 POC ABG pO2 VBG pH Sodium Potassium Chloride Carbon Dioxide BUN Creatinine Glucose POC Glucose 121 H 113 H 117 H Calcium Magnesium AST ALT Alkaline Phosphatase Total Creatine Kinase NT-Pro-B Natriuret Pep Albumin Urine WBC (Auto) Crossmatch 11/24/18 11/24/18 11/24/18 05:13 12:00 18:13 WBC RBC Hgb Hct MCV MCH MCHC RDW Plt Count Lymph % (Auto) [place] % (Auto) Eos % (Auto) Lymph # [place] # Eos # Seg Neutrophils % Seg Neutrophils # PT INR POC ABG pH POC ABG pCO2 POC ABG pO2 VBG pH Sodium Potassium Chloride Carbon Dioxide BUN Creatinine Glucose POC Glucose 143 H 123 H 124 H Calcium Magnesium AST ALT Alkaline Phosphatase Total Creatine Kinase NT-Pro-B Natriuret Pep Albumin Urine WBC (Auto) Crossmatch 11/24/18 11/25/18 11/25/18 23:34 05:25 05:25 WBC RBC 2.48 L Hgb 6.8 L Hct 21.2 L MCV MCH MCHC RDW 17.7 H Plt Count Lymph % (Auto) [place] % (Auto) Eos % (Auto) Lymph # [place] # Eos # Seg Neutrophils % Seg Neutrophils # PT INR POC ABG pH POC ABG pCO2 POC ABG pO2 VBG pH Sodium Potassium Chloride 108.8 H Carbon Dioxide BUN 30 H Creatinine 0.7 L Glucose 112 H POC Glucose 115 H Calcium Magnesium AST ALT Alkaline Phosphatase Total Creatine Kinase NT-Pro-B Natriuret Pep Albumin Urine WBC (Auto) Crossmatch 11/25/18 11/25/18 11/25/18 06:46 11:15 11:28 WBC RBC Hgb 7.4 L Hct 23.0 L MCV MCH MCHC RDW Plt Count Lymph % (Auto) [place] % (Auto) Eos % (Auto) Lymph # [place] # Eos # Seg Neutrophils % Seg Neutrophils # PT INR POC ABG pH POC ABG pCO2 POC ABG pO2 VBG pH Sodium Potassium Chloride Carbon Dioxide BUN Creatinine Glucose POC Glucose 133 H 127 H Calcium Magnesium AST ALT Alkaline Phosphatase Total Creatine Kinase NT-Pro-B Natriuret Pep Albumin Urine WBC (Auto) Crossmatch 11/25/18 11/25/18 11/25/18 15:28 17:32 23:45 WBC RBC Hgb Hct MCV MCH MCHC RDW Plt Count Lymph % (Auto) [place] % (Auto) Eos % (Auto) Lymph # [place] # Eos # Seg Neutrophils % Seg Neutrophils # PT INR POC ABG pH POC ABG pCO2 POC ABG pO2 VBG pH Sodium Potassium Chloride Carbon Dioxide BUN Creatinine Glucose POC Glucose 115 H 130 H Calcium Magnesium AST ALT Alkaline Phosphatase Total Creatine Kinase NT-Pro-B Natriuret Pep Albumin Urine WBC (Auto) Crossmatch See Detail 11/26/18 11/26/18 11/26/18 06:13 06:20 06:20 WBC RBC 2.76 L Hgb 7.7 L Hct 23.4 L MCV MCH MCHC RDW 17.5 H Plt Count Lymph % (Auto) [place] % (Auto) Eos % (Auto) Lymph # [place] # Eos # Seg Neutrophils % Seg Neutrophils # PT INR POC ABG pH POC ABG pCO2 POC ABG pO2 VBG pH Sodium Potassium Chloride 109.9 H Carbon Dioxide BUN 30 H Creatinine 0.6 L Glucose 121 H POC Glucose 129 H Calcium Magnesium AST ALT Alkaline Phosphatase Total Creatine Kinase NT-Pro-B Natriuret Pep Albumin Urine WBC (Auto) Crossmatch 11/26/18 11/26/18 11/27/18 12:06 16:35 06:04 WBC RBC Hgb Hct MCV MCH MCHC RDW Plt Count Lymph % (Auto) [place] % (Auto) Eos % (Auto) Lymph # [place] # Eos # Seg Neutrophils % Seg Neutrophils # PT INR POC ABG pH POC ABG pCO2 POC ABG pO2 VBG pH Sodium Potassium Chloride Carbon Dioxide BUN Creatinine Glucose POC Glucose 139 H 107 H 126 H Calcium Magnesium AST ALT Alkaline Phosphatase Total Creatine Kinase NT-Pro-B Natriuret Pep Albumin Urine WBC (Auto) Crossmatch 11/27/18 11/27/18 11/28/18 13:14 17:47 07:03 WBC RBC Hgb Hct MCV MCH MCHC RDW Plt Count Lymph % (Auto) [place] % (Auto) Eos % (Auto) Lymph # [place] # Eos # Seg Neutrophils % Seg Neutrophils # PT INR POC ABG pH POC ABG pCO2 POC ABG pO2 VBG pH Sodium Potassium Chloride Carbon Dioxide BUN Creatinine Glucose POC Glucose 130 H 115 H 118 H Calcium Magnesium AST ALT Alkaline Phosphatase Total Creatine Kinase NT-Pro-B Natriuret Pep Albumin Urine WBC (Auto) Crossmatch 11/28/18 11/29/18 11/29/18 11:38 00:35 04:56 WBC RBC Hgb Hct MCV MCH MCHC RDW Plt Count Lymph % (Auto) [place] % (Auto) Eos % (Auto) Lymph # [place] # Eos # Seg Neutrophils % Seg Neutrophils # PT INR POC ABG pH POC ABG pCO2 POC ABG pO2 VBG pH Sodium Potassium Chloride Carbon Dioxide BUN Creatinine Glucose POC Glucose 126 H 107 H Calcium Magnesium AST ALT Alkaline Phosphatase Total Creatine Kinase 50 L NT-Pro-B Natriuret Pep Albumin Urine WBC (Auto) Crossmatch 11/29/18 11/29/18 11/29/18 05:49 11:46 18:17 WBC RBC Hgb Hct MCV MCH MCHC RDW Plt Count Lymph % (Auto) [place] % (Auto) Eos % (Auto) Lymph # [place] # Eos # Seg Neutrophils % Seg Neutrophils # PT INR POC ABG pH POC ABG pCO2 POC ABG pO2 VBG pH Sodium Potassium Chloride Carbon Dioxide BUN Creatinine Glucose POC Glucose 128 H 140 H 115 H Calcium Magnesium AST ALT Alkaline Phosphatase Total Creatine Kinase NT-Pro-B Natriuret Pep Albumin Urine WBC (Auto) Crossmatch 11/30/18 11/30/18 11/30/18 00:00 03:30 03:30 WBC RBC 2.97 L Hgb 8.1 L Hct 25.5 L MCV MCH 27 L MCHC RDW 17.7 H Plt Count Lymph % (Auto) 9.2 L [place] % (Auto) 10.0 H Eos % (Auto) 4.6 H Lymph # 1.0 L [place] # 1.1 H Eos # 0.5 H Seg Neutrophils % 75.6 H Seg Neutrophils # 8.4 H PT INR POC ABG pH POC ABG pCO2 POC ABG pO2 VBG pH Sodium Potassium Chloride Carbon Dioxide BUN 31 H Creatinine 0.7 L Glucose POC Glucose 120 H Calcium Magnesium AST ALT Alkaline Phosphatase Total Creatine Kinase NT-Pro-B Natriuret Pep Albumin Urine WBC (Auto) Crossmatch 11/30/18 11/30/18 11/30/18 06:54 11:45 16:59 WBC RBC Hgb Hct MCV MCH MCHC RDW Plt Count Lymph % (Auto) [place] % (Auto) Eos % (Auto) Lymph # [place] # Eos # Seg Neutrophils % Seg Neutrophils # PT INR POC ABG pH POC ABG pCO2 POC ABG pO2 VBG pH Sodium Potassium Chloride Carbon Dioxide BUN Creatinine Glucose POC Glucose 120 H 123 H 111 H Calcium Magnesium AST ALT Alkaline Phosphatase Total Creatine Kinase NT-Pro-B Natriuret Pep Albumin Urine WBC (Auto) Crossmatch 12/01/18 12/01/18 12/01/18 00:20 05:58 11:33 WBC RBC Hgb Hct MCV MCH MCHC RDW Plt Count Lymph % (Auto) [place] % (Auto) Eos % (Auto) Lymph # [place] # Eos # Seg Neutrophils % Seg Neutrophils # PT INR POC ABG pH POC ABG pCO2 POC ABG pO2 VBG pH Sodium Potassium Chloride Carbon Dioxide BUN Creatinine Glucose POC Glucose 113 H 127 H 138 H Calcium Magnesium AST ALT Alkaline Phosphatase Total Creatine Kinase NT-Pro-B Natriuret Pep Albumin Urine WBC (Auto) Crossmatch 12/02/18 12/03/18 12/03/18 00:33 05:07 05:07 WBC RBC 2.93 L Hgb 8.2 L Hct 24.9 L MCV MCH MCHC RDW 17.0 H Plt Count 470 H Lymph % (Auto) 9.3 L [place] % (Auto) 8.6 H Eos % (Auto) 5.4 H Lymph # 0.9 L [place] # Eos # 0.5 H Seg Neutrophils % 75.8 H Seg Neutrophils # PT INR POC ABG pH POC ABG pCO2 POC ABG pO2 VBG pH Sodium Potassium Chloride Carbon Dioxide BUN 30 H Creatinine 0.6 L Glucose 115 H POC Glucose 110 H Calcium Magnesium AST ALT Alkaline Phosphatase Total Creatine Kinase NT-Pro-B Natriuret Pep Albumin Urine WBC (Auto) Crossmatch 12/03/18 12/03/18 12/03/18 05:58 11:49 17:44 WBC RBC Hgb Hct MCV MCH MCHC RDW Plt Count Lymph % (Auto) [place] % (Auto) Eos % (Auto) Lymph # [place] # Eos # Seg Neutrophils % Seg Neutrophils # PT INR POC ABG pH POC ABG pCO2 POC ABG pO2 VBG pH Sodium Potassium Chloride Carbon Dioxide BUN Creatinine Glucose POC Glucose 127 H 138 H 127 H Calcium Magnesium AST ALT Alkaline Phosphatase Total Creatine Kinase NT-Pro-B Natriuret Pep Albumin Urine WBC (Auto) Crossmatch 12/05/18 12/05/18 12/05/18 00:22 05:53 17:18 WBC RBC Hgb Hct MCV MCH MCHC RDW Plt Count Lymph % (Auto) [place] % (Auto) Eos % (Auto) Lymph # [place] # Eos # Seg Neutrophils % Seg Neutrophils # PT INR POC ABG pH POC ABG pCO2 POC ABG pO2 VBG pH Sodium Potassium Chloride Carbon Dioxide BUN Creatinine Glucose POC Glucose 124 H 121 H 112 H Calcium Magnesium AST ALT Alkaline Phosphatase Total Creatine Kinase NT-Pro-B Natriuret Pep Albumin Urine WBC (Auto) Crossmatch 12/06/18 12/06/18 12/06/18 00:07 06:16 11:43 WBC RBC Hgb Hct MCV MCH MCHC RDW Plt Count Lymph % (Auto) [place] % (Auto) Eos % (Auto) Lymph # [place] # Eos # Seg Neutrophils % Seg Neutrophils # PT INR POC ABG pH POC ABG pCO2 POC ABG pO2 VBG pH Sodium Potassium Chloride Carbon Dioxide BUN Creatinine Glucose POC Glucose 111 H 117 H 121 H Calcium Magnesium AST ALT Alkaline Phosphatase Total Creatine Kinase NT-Pro-B Natriuret Pep Albumin Urine WBC (Auto) Crossmatch 12/06/18 12/07/18 12/07/18 20:57 06:41 12:09 WBC RBC Hgb Hct MCV MCH MCHC RDW Plt Count Lymph % (Auto) [place] % (Auto) Eos % (Auto) Lymph # [place] # Eos # Seg Neutrophils % Seg Neutrophils # PT INR POC ABG pH POC ABG pCO2 POC ABG pO2 VBG pH Sodium Potassium Chloride 107.2 H Carbon Dioxide BUN 27 H Creatinine 0.7 L Glucose POC Glucose 128 H 137 H Calcium Magnesium 2.50 H AST ALT Alkaline Phosphatase Total Creatine Kinase NT-Pro-B Natriuret Pep Albumin Urine WBC (Auto) Crossmatch 12/07/18 12/08/18 12/08/18 19:29 05:44 12:27 WBC RBC Hgb Hct MCV MCH MCHC RDW Plt Count Lymph % (Auto) [place] % (Auto) Eos % (Auto) Lymph # [place] # Eos # Seg Neutrophils % Seg Neutrophils # PT INR POC ABG pH POC ABG pCO2 POC ABG pO2 VBG pH Sodium Potassium Chloride Carbon Dioxide BUN Creatinine Glucose POC Glucose 110 H 126 H 130 H Calcium Magnesium AST ALT Alkaline Phosphatase Total Creatine Kinase NT-Pro-B Natriuret Pep Albumin Urine WBC (Auto) Crossmatch 12/08/18 12/09/18 12/09/18 17:44 00:20 06:42 WBC RBC Hgb Hct MCV MCH MCHC RDW Plt Count Lymph % (Auto) [place] % (Auto) Eos % (Auto) Lymph # [place] # Eos # Seg Neutrophils % Seg Neutrophils # PT INR POC ABG pH POC ABG pCO2 POC ABG pO2 VBG pH Sodium Potassium Chloride Carbon Dioxide BUN Creatinine Glucose POC Glucose 113 H 121 H 124 H Calcium Magnesium AST ALT Alkaline Phosphatase Total Creatine Kinase NT-Pro-B Natriuret Pep Albumin Urine WBC (Auto) Crossmatch 12/09/18 12/09/18 12/09/18 12:24 18:41 23:48 WBC RBC Hgb Hct MCV MCH MCHC RDW Plt Count Lymph % (Auto) [place] % (Auto) Eos % (Auto) Lymph # [place] # Eos # Seg Neutrophils % Seg Neutrophils # PT INR POC ABG pH POC ABG pCO2 POC ABG pO2 VBG pH Sodium Potassium Chloride Carbon Dioxide BUN Creatinine Glucose POC Glucose 114 H 109 H 128 H Calcium Magnesium AST ALT Alkaline Phosphatase Total Creatine Kinase NT-Pro-B Natriuret Pep Albumin Urine WBC (Auto) Crossmatch 12/10/18 12/10/18 12/11/18 07:07 11:28 00:24 WBC RBC Hgb Hct MCV MCH MCHC RDW Plt Count Lymph % (Auto) [place] % (Auto) Eos % (Auto) Lymph # [place] # Eos # Seg Neutrophils % Seg Neutrophils # PT INR POC ABG pH POC ABG pCO2 POC ABG pO2 VBG pH Sodium Potassium Chloride Carbon Dioxide BUN Creatinine Glucose POC Glucose 111 H 110 H 112 H Calcium Magnesium AST ALT Alkaline Phosphatase Total Creatine Kinase NT-Pro-B Natriuret Pep Albumin Urine WBC (Auto) Crossmatch 12/11/18 12/11/18 12/11/18 06:44 11:53 18:17 WBC RBC Hgb Hct MCV MCH MCHC RDW Plt Count Lymph % (Auto) [place] % (Auto) Eos % (Auto) Lymph # [place] # Eos # Seg Neutrophils % Seg Neutrophils # PT INR POC ABG pH POC ABG pCO2 POC ABG pO2 VBG pH Sodium Potassium Chloride Carbon Dioxide BUN Creatinine Glucose POC Glucose 111 H 132 H 133 H Calcium Magnesium AST ALT Alkaline Phosphatase Total Creatine Kinase NT-Pro-B Natriuret Pep Albumin Urine WBC (Auto) Crossmatch 12/11/18 12/12/18 12/12/18 23:58 00:05 06:11 WBC RBC 2.85 L Hgb 7.8 L Hct 24.4 L MCV MCH 27 L MCHC RDW 17.4 H Plt Count 459 H Lymph % (Auto) [place] % (Auto) 11.2 H Eos % (Auto) 5.4 H Lymph # [place] # 1.1 H Eos # 0.5 H Seg Neutrophils % Seg Neutrophils # PT INR POC ABG pH POC ABG pCO2 POC ABG pO2 VBG pH Sodium Potassium Chloride Carbon Dioxide BUN Creatinine Glucose POC Glucose 126 H 144 H Calcium Magnesium AST ALT Alkaline Phosphatase Total Creatine Kinase NT-Pro-B Natriuret Pep Albumin Urine WBC (Auto) Crossmatch 12/12/18 12/12/18 12/13/18 11:42 18:36 00:12 WBC RBC Hgb Hct MCV MCH MCHC RDW Plt Count Lymph % (Auto) [place] % (Auto) Eos % (Auto) Lymph # [place] # Eos # Seg Neutrophils % Seg Neutrophils # PT INR POC ABG pH POC ABG pCO2 POC ABG pO2 VBG pH Sodium Potassium Chloride Carbon Dioxide BUN Creatinine Glucose POC Glucose 106 H 117 H 115 H Calcium Magnesium AST ALT Alkaline Phosphatase Total Creatine Kinase NT-Pro-B Natriuret Pep Albumin Urine WBC (Auto) Crossmatch 12/13/18 12/13/18 12/13/18 05:58 11:52 23:57 WBC RBC Hgb Hct MCV MCH MCHC RDW Plt Count Lymph % (Auto) [place] % (Auto) Eos % (Auto) Lymph # [place] # Eos # Seg Neutrophils % Seg Neutrophils # PT INR POC ABG pH POC ABG pCO2 POC ABG pO2 VBG pH Sodium Potassium Chloride Carbon Dioxide BUN Creatinine Glucose POC Glucose 122 H 129 H 125 H Calcium Magnesium AST ALT Alkaline Phosphatase Total Creatine Kinase NT-Pro-B Natriuret Pep Albumin Urine WBC (Auto) Crossmatch 12/14/18 12/14/18 12/14/18 04:44 04:44 05:44 WBC RBC 2.56 L Hgb 7.2 L Hct 22.1 L MCV MCH MCHC RDW 17.8 H Plt Count 473 H Lymph % (Auto) [place] % (Auto) 11.5 H Eos % (Auto) 4.8 H Lymph # [place] # 1.1 H Eos # Seg Neutrophils % Seg Neutrophils # PT INR POC ABG pH POC ABG pCO2 POC ABG pO2 VBG pH Sodium 151 H Potassium Chloride 116.7 H Carbon Dioxide BUN 40 H Creatinine Glucose 114 H POC Glucose 117 H Calcium Magnesium AST 80 H ALT 67 H Alkaline Phosphatase 247 H Total Creatine Kinase NT-Pro-B Natriuret Pep Albumin 1.9 L Urine WBC (Auto) Crossmatch 12/14/18 12/15/18 12/15/18 11:29 00:01 05:13 WBC RBC 2.68 L Hgb 7.4 L Hct 23.1 L MCV MCH MCHC RDW 17.6 H Plt Count 454 H Lymph % (Auto) 13.3 L [place] % (Auto) 9.7 H Eos % (Auto) 6.9 H Lymph # [place] # Eos # 0.6 H Seg Neutrophils % Seg Neutrophils # PT INR POC ABG pH POC ABG pCO2 POC ABG pO2 VBG pH Sodium Potassium Chloride Carbon Dioxide BUN Creatinine Glucose POC Glucose 115 H 113 H Calcium Magnesium AST ALT Alkaline Phosphatase Total Creatine Kinase NT-Pro-B Natriuret Pep Albumin Urine WBC (Auto) Crossmatch 12/15/18 12/15/18 12/15/18 05:13 06:31 11:31 WBC RBC Hgb Hct MCV MCH MCHC RDW Plt Count Lymph % (Auto) [place] % (Auto) Eos % (Auto) Lymph # [place] # Eos # Seg Neutrophils % Seg Neutrophils # PT INR POC ABG pH POC ABG pCO2 POC ABG pO2 VBG pH Sodium 151 H Potassium Chloride 116.4 H Carbon Dioxide BUN 39 H Creatinine Glucose 110 H POC Glucose 130 H 127 H Calcium Magnesium AST 85 H ALT 78 H Alkaline Phosphatase 255 H Total Creatine Kinase NT-Pro-B Natriuret Pep Albumin 1.9 L Urine WBC (Auto) Crossmatch 12/15/18 12/16/18 12/16/18 17:54 00:27 00:33 WBC RBC Hgb Hct MCV MCH MCHC RDW Plt Count Lymph % (Auto) [place] % (Auto) Eos % (Auto) Lymph # [place] # Eos # Seg Neutrophils % Seg Neutrophils # PT INR POC ABG pH POC ABG pCO2 POC ABG pO2 VBG pH Sodium Potassium Chloride Carbon Dioxide BUN Creatinine Glucose POC Glucose 122 H 131 H Calcium Magnesium AST ALT Alkaline Phosphatase Total Creatine Kinase 50 L NT-Pro-B Natriuret Pep Albumin Urine WBC (Auto) Crossmatch 12/16/18 12/16/18 12/16/18 05:31 11:31 17:22 WBC RBC Hgb Hct MCV MCH MCHC RDW Plt Count Lymph % (Auto) [place] % (Auto) Eos % (Auto) Lymph # [place] # Eos # Seg Neutrophils % Seg Neutrophils # PT INR POC ABG pH POC ABG pCO2 POC ABG pO2 VBG pH Sodium Potassium Chloride Carbon Dioxide BUN Creatinine Glucose POC Glucose 138 H 121 H 114 H Calcium Magnesium AST ALT Alkaline Phosphatase Total Creatine Kinase NT-Pro-B Natriuret Pep Albumin Urine WBC (Auto) Crossmatch 12/16/18 12/17/18 12/17/18 23:56 05:01 05:01 WBC 11.1 H RBC 2.96 L Hgb 7.9 L Hct 25.7 L MCV MCH 27 L MCHC 31 L RDW 17.9 H Plt Count 479 H Lymph % (Auto) 11.3 L [place] % (Auto) 7.5 H Eos % (Auto) 4.5 H Lymph # [place] # Eos # 0.5 H Seg Neutrophils % 75.9 H Seg Neutrophils # 8.4 H PT INR POC ABG pH POC ABG pCO2 POC ABG pO2 VBG pH Sodium 155 H Potassium Chloride 121.2 H Carbon Dioxide BUN 41 H Creatinine Glucose 122 H POC Glucose 137 H Calcium Magnesium AST 97 H ALT 99 H Alkaline Phosphatase 279 H Total Creatine Kinase NT-Pro-B Natriuret Pep Albumin 1.8 L Urine WBC (Auto) Crossmatch 12/17/18 12/17/18 12/18/18 11:52 18:17 00:17 WBC RBC Hgb Hct MCV MCH MCHC RDW Plt Count Lymph % (Auto) [place] % (Auto) Eos % (Auto) Lymph # [place] # Eos # Seg Neutrophils % Seg Neutrophils # PT INR POC ABG pH POC ABG pCO2 POC ABG pO2 VBG pH Sodium Potassium Chloride Carbon Dioxide BUN Creatinine Glucose POC Glucose 142 H 140 H 160 H Calcium Magnesium AST ALT Alkaline Phosphatase Total Creatine Kinase NT-Pro-B Natriuret Pep Albumin Urine WBC (Auto) Crossmatch 12/18/18 12/18/18 12/18/18 05:39 05:40 05:40 WBC 11.7 H RBC 2.76 L Hgb 7.5 L Hct 23.8 L MCV MCH 27 L MCHC 31 L RDW 17.8 H Plt Count Lymph % (Auto) [place] % (Auto) Eos % (Auto) Lymph # [place] # Eos # Seg Neutrophils % Seg Neutrophils # PT INR POC ABG pH POC ABG pCO2 POC ABG pO2 VBG pH Sodium 153 H Potassium Chloride 117.6 H Carbon Dioxide BUN 48 H Creatinine Glucose 122 H POC Glucose 138 H Calcium Magnesium AST ALT Alkaline Phosphatase Total Creatine Kinase NT-Pro-B Natriuret Pep Albumin Urine WBC (Auto) Crossmatch 12/18/18 12/18/18 12/19/18 11:32 17:26 00:38 WBC RBC Hgb Hct MCV MCH MCHC RDW Plt Count Lymph % (Auto) [place] % (Auto) Eos % (Auto) Lymph # [place] # Eos # Seg Neutrophils % Seg Neutrophils # PT INR POC ABG pH POC ABG pCO2 POC ABG pO2 VBG pH Sodium Potassium Chloride Carbon Dioxide BUN Creatinine Glucose POC Glucose 136 H 125 H 126 H Calcium Magnesium AST ALT Alkaline Phosphatase Total Creatine Kinase NT-Pro-B Natriuret Pep Albumin Urine WBC (Auto) Crossmatch 12/19/18 12/19/18 12/19/18 05:22 05:22 06:19 WBC 12.2 H RBC 2.86 L Hgb 7.6 L Hct 24.4 L MCV MCH 27 L MCHC 31 L RDW 17.8 H Plt Count Lymph % (Auto) [place] % (Auto) Eos % (Auto) Lymph # [place] # Eos # Seg Neutrophils % Seg Neutrophils # PT INR POC ABG pH POC ABG pCO2 POC ABG pO2 VBG pH Sodium Potassium 5.9 H D Chloride 109.7 H Carbon Dioxide BUN 45 H Creatinine Glucose 107 H POC Glucose 136 H Calcium 8.3 L Magnesium AST ALT Alkaline Phosphatase Total Creatine Kinase NT-Pro-B Natriuret Pep Albumin Urine WBC (Auto) Crossmatch 12/19/18 12/19/18 12/19/18 08:23 11:44 17:09 WBC RBC Hgb Hct MCV MCH MCHC RDW Plt Count Lymph % (Auto) [place] % (Auto) Eos % (Auto) Lymph # [place] # Eos # Seg Neutrophils % Seg Neutrophils # PT INR POC ABG pH POC ABG pCO2 POC ABG pO2 VBG pH Sodium Potassium Chloride 107.7 H Carbon Dioxide BUN 42 H Creatinine Glucose 118 H POC Glucose 130 H 118 H Calcium Magnesium AST ALT Alkaline Phosphatase Total Creatine Kinase NT-Pro-B Natriuret Pep Albumin Urine WBC (Auto) Crossmatch 12/19/18 12/20/18 12/20/18 23:59 05:52 06:24 WBC RBC Hgb Hct MCV MCH MCHC RDW Plt Count Lymph % (Auto) [place] % (Auto) Eos % (Auto) Lymph # [place] # Eos # Seg Neutrophils % Seg Neutrophils # PT INR POC ABG pH POC ABG pCO2 POC ABG pO2 VBG pH Sodium Potassium 5.2 H Chloride 107.2 H Carbon Dioxide 21 L BUN 44 H Creatinine Glucose 118 H POC Glucose 150 H 138 H Calcium Magnesium AST ALT Alkaline Phosphatase Total Creatine Kinase NT-Pro-B Natriuret Pep Albumin Urine WBC (Auto) Crossmatch 12/20/18 12/20/18 12/21/18 11:34 17:10 00:07 WBC RBC Hgb Hct MCV MCH MCHC RDW Plt Count Lymph % (Auto) [place] % (Auto) Eos % (Auto) Lymph # [place] # Eos # Seg Neutrophils % Seg Neutrophils # PT INR POC ABG pH POC ABG pCO2 POC ABG pO2 VBG pH Sodium Potassium Chloride Carbon Dioxide BUN Creatinine Glucose POC Glucose 134 H 141 H 145 H Calcium Magnesium AST ALT Alkaline Phosphatase Total Creatine Kinase NT-Pro-B Natriuret Pep Albumin Urine WBC (Auto) Crossmatch 12/21/18 12/21/18 12/21/18 05:37 05:37 06:58 WBC 12.3 H RBC 2.67 L Hgb 7.1 L Hct 22.4 L MCV MCH 27 L MCHC RDW 17.5 H Plt Count Lymph % (Auto) [place] % (Auto) Eos % (Auto) Lymph # [place] # Eos # Seg Neutrophils % Seg Neutrophils # PT INR POC ABG pH POC ABG pCO2 POC ABG pO2 VBG pH Sodium Potassium Chloride Carbon Dioxide BUN 42 H Creatinine Glucose 127 H POC Glucose 152 H Calcium Magnesium AST ALT Alkaline Phosphatase Total Creatine Kinase NT-Pro-B Natriuret Pep Albumin Urine WBC (Auto) Crossmatch 12/21/18 12/21/18 12/22/18 12:06 17:43 00:11 WBC RBC Hgb Hct MCV MCH MCHC RDW Plt Count Lymph % (Auto) [place] % (Auto) Eos % (Auto) Lymph # [place] # Eos # Seg Neutrophils % Seg Neutrophils # PT INR POC ABG pH POC ABG pCO2 POC ABG pO2 VBG pH Sodium Potassium Chloride Carbon Dioxide BUN Creatinine Glucose POC Glucose 140 H 122 H 128 H Calcium Magnesium AST ALT Alkaline Phosphatase Total Creatine Kinase NT-Pro-B Natriuret Pep Albumin Urine WBC (Auto) Crossmatch 12/22/18 12/22/18 12/22/18 05:42 05:42 06:35 WBC 12.8 H RBC 2.82 L Hgb 7.5 L Hct 23.4 L MCV 83 L MCH 27 L MCHC RDW 17.2 H Plt Count Lymph % (Auto) [place] % (Auto) Eos % (Auto) Lymph # [place] # Eos # Seg Neutrophils % Seg Neutrophils # PT INR POC ABG pH POC ABG pCO2 POC ABG pO2 VBG pH Sodium Potassium Chloride Carbon Dioxide BUN 48 H Creatinine Glucose 115 H POC Glucose 120 H Calcium Magnesium AST ALT Alkaline Phosphatase Total Creatine Kinase NT-Pro-B Natriuret Pep Albumin Urine WBC (Auto) Crossmatch 12/22/18 12/22/18 12/23/18 11:30 18:30 00:02 WBC RBC Hgb Hct MCV MCH MCHC RDW Plt Count Lymph % (Auto) [place] % (Auto) Eos % (Auto) Lymph # [place] # Eos # Seg Neutrophils % Seg Neutrophils # PT INR POC ABG pH POC ABG pCO2 POC ABG pO2 VBG pH Sodium Potassium Chloride Carbon Dioxide BUN Creatinine Glucose POC Glucose 151 H 124 H 169 H Calcium Magnesium AST ALT Alkaline Phosphatase Total Creatine Kinase NT-Pro-B Natriuret Pep Albumin Urine WBC (Auto) Crossmatch 12/23/18 12/23/18 12/23/18 00:51 05:30 06:09 WBC RBC 2.91 L Hgb 7.7 L Hct 24.3 L MCV 83 L MCH 26 L MCHC RDW 17.4 H Plt Count Lymph % (Auto) [place] % (Auto) 12.3 H Eos % (Auto) Lymph # [place] # 1.4 H Eos # Seg Neutrophils % 70.7 H Seg Neutrophils # 7.8 H PT INR POC ABG pH POC ABG pCO2 POC ABG pO2 VBG pH Sodium Potassium Chloride Carbon Dioxide BUN 58 H Creatinine Glucose 121 H POC Glucose 146 H Calcium 7.8 L Magnesium AST ALT Alkaline Phosphatase Total Creatine Kinase NT-Pro-B Natriuret Pep Albumin Urine WBC (Auto) Crossmatch 12/23/18 12/23/18 12/24/18 11:34 17:36 00:24 WBC RBC Hgb Hct MCV MCH MCHC RDW Plt Count Lymph % (Auto) [place] % (Auto) Eos % (Auto) Lymph # [place] # Eos # Seg Neutrophils % Seg Neutrophils # PT INR POC ABG pH POC ABG pCO2 POC ABG pO2 VBG pH Sodium Potassium Chloride Carbon Dioxide BUN Creatinine Glucose POC Glucose 153 H 121 H 144 H Calcium Magnesium AST ALT Alkaline Phosphatase Total Creatine Kinase NT-Pro-B Natriuret Pep Albumin Urine WBC (Auto) Crossmatch 12/24/18 12/24/18 12/24/18 05:59 05:59 06:21 WBC RBC 2.41 L Hgb 6.5 L Hct 20.4 L MCV MCH 27 L MCHC RDW 17.8 H Plt Count Lymph % (Auto) [place] % (Auto) Eos % (Auto) Lymph # [place] # Eos # Seg Neutrophils % Seg Neutrophils # PT INR POC ABG pH POC ABG pCO2 POC ABG pO2 VBG pH Sodium Potassium 5.2 H Chloride Carbon Dioxide BUN 52 H Creatinine Glucose 114 H POC Glucose 140 H Calcium Magnesium AST ALT Alkaline Phosphatase Total Creatine Kinase NT-Pro-B Natriuret Pep Albumin Urine WBC (Auto) Crossmatch Allied health notes reviewed: nursing
--- NOTE | 2018-12-24 08:40 | Progress Note ---
Assessment and Plan Cultures: Blood culture 10/01/2018 MRSA 2 of 4. Blood culture 10/03/2018 MRSA Blood culture 10/08/2018 no growth Blood culture 10/11/2018 no growth Blood culture 10/21/2018 no growth Blood culture 11/01/2018 Staph haemolyticus 2 of 4 bottles, resistent to methicillin and MRSA 1 of 4 bottles Blood culture 11/04/2018 no growth Blood culture 12/21/2018 no growth Assessment: 67 y/o male with history of HTN, CVA, Obstructive Uropathy, Contracture, Multiple Decubitus Ulcers, OR, DM, OA, Seizure Disorder, COPD, Dementia, Debility, BPH, well known to ID due to multiple admissions secondary to ducubitus ulcers infections and recurrent bacteremia, last time admitted on 10/02/2018 found with MRSA bacteremia jessica from decubitus ulcers mainly active large left trochanteric with bone exposure and sacral with bone exposure. Patient's infection was deemed incurable and hospice was recommended. Patient wa s discharged back to [facility] on IV vancomycin 1 gm every 48 hours for total 6 weeks ending 11/12/2018 via neck tunneled cath. Patient was readmitted on due to AMS, worsening SOB. Patient is lethargic and unable to provide history. At the [facility] he was found to have respiratory distress upon evaluation the morning of admission,pulse oximetry in the 80's: 1) New Fever: Low grade fever noted 100.5. Repeat blood cultures show no growth. Will discontinue Vancomycin. Continue Cefepime, total 5 days. After c ompletion of antibiotic therapy, will remove left tunnelled PICC to reduce risk of CLABSI. 2) Severe Sepsis: Resolved. 3) Staph haemolyticus and MRSA bacteremia with recent MRSA bacteremia: Blood culture 11/01/2018 Staph haemolyticus 2 of 4 bottles and MRSA 1 of 4. Source likely multiple decubitus ulcers or Neck IV central line. Patient is failing vancomycin. He has a tunneled neck cath. Recent TTE negative for vegetations. On daptomycin. 4) Recent septic shock due to polymicrobial bacteremia ESBL and carbapenem resistant E coli, MDR Proteus, Strep and E faecalis on 07/29/2018 probably from multiple infected decubitus ulcers and less likely UTI. Repeat blood cultures 07/31/2018 showed same MDR E coli 1 of 4 bottles then 08/06/2018 blood cultures showed no growth. Patient was treated with Vabomere for 14 days. 5) Multiple infected decubitus ulcers: His prognosis has been poor and hospice has been recommended several times in the past but family has declined. declined. His wounds are not curable considering his contractures, bed bound status and poor nutritional status. There was also suspicion of septic arthritis of left hip from decubitus ulcer. S/p debridement of multiple pressure ulcerations on 11/07/2018- stage 4 left hip pressure ulceration was surgically excisionally debrided of necrotic bone, stage 3 sacral, right ankle and left heel pressure ulcers were then surgically, excisionally debrided of necrotic SQ fat, stage 4 right heel, left lateral heel and right lateral leg ulcerations were surgically, excisionally debrided of necrotic SQ tissue, muscle and fascia. Dr Man recommended bilateral AKA, patient and daughter refused. Dr Man recommended Orthopedic consultation for possible left hip disarticulation as his left hip joint is crumbling and has profuse purulent drainage. 6) Recurrent UTI: new bright placed this admission 7) Acute encephalopathy: multifactorial. 8) Acute resp failure: On Recommendations: Discontinue Vancomycin Continue Cefepime 2 gms IV every 12 hours, D3 of D5 After completion of antibiotic therapy, will remove left tunnelled PICC to reduce risk of CLABSI. Needs to be hospice Grim prognosis. [facility] M: [phone] O:[phone] Subjective Date of service: 12/24/18 Principal diagnosis: Severe Sepsis; Ac. Hypoxemic Resp failure; Anemia; Seizure; UTI; BPH Interval history: Patient seen and examined. Awake. Alert. Some agitation today. Stated that he wanted to be left alone. Low grade fevers. Objective - Exam Narrative Exam: General appearance: Alert. Awake. Some agitation. Eyes: anicteric sclerae, moist conjunctivae; no lid-lag; PERRLA HENT: Atraumatic; oropharynx limited Neck: Trachea midline; supple, no thyromegaly or lymphadenopathy Lungs: CTA CV: RRR no murmur Abdomen: Soft, non-tender Extremities: marked legs contractions, multiple decubitus ulcers covered with dressings. Right leg dressing with serosanguinous drainage. Skin: multiple skin tears Psych: Agitated. Lines: left tunneled PICC - Constitutional Vitals: Vital Signs Temp Pulse Resp BP Pulse Ox 97.7 F 81 18 116/63 98 12/24/18 02:11 12/24/18 02:11 12/24/18 02:11 12/24/18 05:49 12/24/18 02:11 Temperature -Last 24 Hours Temperature 97.7 F Temperature 100.5 F Temperature 99.9 F - Labs CBC & Chem 7: 12/24/18 05:59 12/24/18 05:59 Labs: Abnormal lab results 12/23/18 12/23/18 12/24/18 Range/Units 11:34 17:36 00:24 RBC (3.65-5.03) M/mm3 Hgb (11.8-15.2) gm/dl Hct (35.5-45.6) % MCH (28-32) pg RDW (13.2-15.2) % Potassium (3.6-5.0) mmol/L BUN (9-20) mg/dL Glucose (75-100) mg/dL POC Glucose 153 H 121 H 144 H (70-105) 12/24/18 12/24/18 12/24/18 Range/Units 05:59 05:59 06:21 RBC 2.41 L (3.65-5.03) M/mm3 Hgb 6.5 L (11.8-15.2) gm/dl Hct 20.4 L (35.5-45.6) % MCH 27 L (28-32) pg RDW 17.8 H (13.2-15.2) % Potassium 5.2 H (3.6-5.0) mmol/L BUN 52 H (9-20) mg/dL Glucose 114 H (75-100) mg/dL POC Glucose 140 H (70-105)
[2018-12-24] MEDS ORDERED: NACL 0.9% 500 ML 500 ML IV NR (09:00)
[2018-12-24] MEDS: Centrum Liq FEEDTUBE SCH (09:39)
[2018-12-24] MEDS: LOVENOX SUB-Q SCH (09:39)
[2018-12-24] MEDS: KEPPRA FEEDTUBE SCH ×2 (09:39→21:28)
[2018-12-24] MEDS: VITAMIN C FEEDTUBE SCH ×2 (09:41→21:28)
[2018-12-24] MEDS: ZINC SULFATE PO SCH (09:43)
[2018-12-24] MEDS: MIRALAX 3350 FEEDTUBE SCH (09:44)
[2018-12-24] MEDS: COREG PO SCH ×2 (09:45→21:28)
[2018-12-24] MEDS ORDERED: KIONEX PO ONE (10:00)
--- NOTE | 2018-12-24 14:37 | Progress Note ---
Assessment and Plan Assessment and plan: 68 YO Male [facility]way [facility] Resident as [facility] with HTN, CVA, Obstructive Uropathy, Diastolic CHF, Contracture, Sacral Decubitus Ulcers, PA, DM, OA, Seizure Disorder, COPD, Dementia, BPH presents to ED for evaluation. Pt is stuporous and unable to provide history. Pt history taken from ED Staff, EMS, and SNF Staff. As per staff, the patient was found to have respiratory distress upon evaluation. Pt found to have pulse oximetry in the 80's. EMS notified and patient subsequently transported to [facility] for further care and evaluation. Patient seen and evaluated in ED and found to have UTI, Sepsis, Encephalopathy as well as Acute Hypoxemic Respiratory Failure. patient has had a prolonged course, had completed antibiotics, was awaiting placement in isolation bed. hopwever he started having fever past few days, ID reconsulted and started Cefepime and Vancomycin 12/22/18 Physicians had Extensive discussion with family about patients poor prognosis surgery consulted, did debridement at bedside ID following, Continue isolation precautions Chaudhary placed by Urology. Please do not remove Poor to grim prognosis per ALL CONSULTANTS And should consider Hospice. FAMILY REFUSING ALL THERAPEUTIC OFFERS INCLUDING AMPUTATION Risk of continued ABX RESISTANCE DISCUSSED EXTENSIVELY WITH THE FAMILY 12/24- Low grade fever- expected. 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 He needs to be on contact isolation. This cannot be cured with antibiotics. recommend palliative car e/comfort care or hospice, family are not interested in that option. Completed daptomycin for 6 weeks completed 12/16/2018 Sacral pressure ulcer -infected. POA Debridement done by Dr Man Amputation recommended and the daughter refused Hyperkalemia: Give additional kayaxlate Respiratory failure Supplemental oxygen, nebulizer therapy, mgt per pulmonology ANEMIA of chronic disease Transfused total 2 units PRBC. Will give additional 1 unit for total of 3 due to gradual decline of H/H TO 6.4 ON 12/24 Transfuse as necessary Seizure Continue current therapy, seizure precautions. BPH Continue Chaudhary catherter Dementia supportive care Hyperkalemia. Resolved after kayexalate and Calcium Gluconate 1 g iv Fever repeat blood cultures Re-consulted ID Physician Started on Cefepime and Vancomycin on 12/22/18 DVT prophylaxis Prophylactic lovenox Poor Prognosis Disposition; pending SNF placement. Multible debridements done again 12/19/18 History Interval history: Pateint seen and examined, no clinical change in condition, lethargic, but otherwise stable. Hospitalist Physical - Physical exam Narrative exam: Gen: Not in acute distress. lying in bed, lethargic Head exam is unremarkable. No scleral icterus . Neck is without jugular venous distension, thyromegaly, or carotid bruits. Lungs are Diminished to auscultation. Cardiac exam reveals regular rate and Rhythm. First and second heart sounds normal. No murmurs, rubs or gallops. Abdominal exam reveals non tender, not distended,normal bowel sounds, no masses, Extremities contracted extremities. 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 - Constitutional Vitals: Temp Pulse Resp BP Pulse Ox 98.8 F 95 H 16 111/71 96 12/24/18 14:11 12/24/18 14:11 12/24/18 14:11 12/24/18 14:11 12/24/18 14:11 General appearance: Present: no acute distress Results - Labs CBC & Chem 7: 12/24/18 05:59 12/24/18 05:59 Labs: Laboratory Last Values WBC 10.4 K/mm3 (4.5-11.0) 12/24/18 05:59 RBC 2.41 M/mm3 (3.65-5.03) L 12/24/18 05:59 Hgb 6.5 gm/dl (11.8-15.2) L 12/24/18 05:59 Hct 20.4 % (35.5-45.6) L 12/24/18 05:59 MCV 85 fl (84-94) 12/24/18 05:59 MCH 27 pg (28-32) L 12/24/18 05:59 MCHC 32 % (32-34) 12/24/18 05:59 RDW 17.8 % (13.2-15.2) H 12/24/18 05:59 Plt Count 399 K/mm3 (140-440) 12/24/18 05:59 Lymph % (Auto) 13.4 % (13.4-35.0) 12/23/18 00:51 Thomas % (Auto) 12.3 % (0.0-7.3) H 12/23/18 00:51 Eos % (Auto) 3.0 % (0.0-4.3) 12/23/18 00:51 Baso % (Auto) 0.6 % (0.0-1.8) 12/23/18 00:51 Lymph # 1.5 K/mm3 (1.2-5.4) 12/23/18 00:51 Thomas # 1.4 K/mm3 (0.0-0.8) H 12/23/18 00:51 Eos # 0.3 K/mm3 (0.0-0.4) 12/23/18 00:51 Baso # 0.1 K/mm3 (0.0-0.1) 12/23/18 00:51 Seg Neutrophils % 70.7 % (40.0-70.0) H 12/23/18 00:51 Seg Neutrophils # 7.8 K/mm3 (1.8-7.7) H 12/23/18 00:51 PT 16.3 Sec. (12.2-14.9) H 11/01/18 14:50 INR 1.35 (0.87-1.13) H 11/01/18 14:50 POC ABG pH 7.494 (7.35-7.45) H 11/01/18 15:27 POC ABG pCO2 34.5 (35-45) L 11/01/18 15:27 POC ABG pO2 139 (80-105) H 11/01/18 15:27 POC ABG HCO3 26.5 (22-26 mml/L) 11/01/18 15:27 POC ABG Total CO2 28 (23-27mmol/L) 11/01/18 15:27 POC ABG O2 Sat 99 11/01/18 15:27 POC ABG Base Excess 3 ((-2) - (+3)mmol/L) 11/01/18 15:27 VBG pH 7.499 (7.320-7.420) H 11/01/18 14:50 50 % 11/01/18 15:27 Sodium 138 mmol/L (137-145) 12/24/18 05:59 Potassium 5.2 mmol/L (3.6-5.0) H 12/24/18 05:59 Chloride 103.1 mmol/L (98-107) 12/24/18 05:59 Carbon Dioxide 22 mmol/L (22-30) 12/24/18 05:59 18 mmol/L 12/24/18 05:59 BUN 52 mg/dL (9-20) H 12/24/18 05:59 1.0 mg/dL (0.8-1.5) 12/24/18 05:59 Estimated GFR > 60 ml/min 12/24/18 05:59 52 % 12/24/18 05:59 Glucose 114 mg/dL (75-100) H 12/24/18 05:59 POC Glucose 146 (70-105) H 12/24/18 11:49 Lactic Acid 1.80 mmol/L (0.7-2.0) 11/01/18 14:50 Calcium 8.7 mg/dL (8.4-10.2) 12/24/18 05:59 Phosphorus 2.90 mg/dL (2.5-4.5) 11/22/18 09:43 Magnesium 2.50 mg/dL (1.7-2.3) H 12/06/18 20:57 0.20 mg/dL (0.1-1.2) 12/17/18 05:01 AST 97 units/L (5-40) H 12/17/18 05:01 ALT 99 units/L (7-56) H 12/17/18 05:01 279 units/L (35-129) H 12/17/18 05:01 50 units/L (55-170) L 12/16/18 00:27 NT-Pro-B Natriuret Pep 6776 pg/mL (0-900) H 11/01/18 14:50 7.7 g/dL (6.3-8.2) 12/17/18 05:01 1.8 g/dL (3.9-5) L 12/17/18 05:01 0.3 % 12/17/18 05:01 14 units/L (13-60) 11/25/18 15:07 Yellow (Yellow) 11/01/18 15:57 Turbid (Clear) 11/01/18 15:57 6.0 (5.0-7.0) 11/01/18 15:57 Ur Specific Two Dot 1.016 (1.003-1.030) 11/01/18 15:57 100 mg/dl mg/dL (Negative) 11/01/18 15:57 Neg mg/dL (Negative) 11/01/18 15:57 Neg mg/dL (Negative) 11/01/18 15:57 Neg (Negative) 11/01/18 15:57 Neg (Negative) 11/01/18 15:57 Neg (Negative) 11/01/18 15:57 < 2.0 mg/dL (<2.0) 11/01/18 15:57 Ur Leukocyte Esterase Mod (Negative) 11/01/18 15:57 > 182.0 /HPF (0.0-6.0) H 11/01/18 15:57 40.0 /HPF (0.0-6.0) 11/01/18 15:57 U Epithel Cells (Auto) 8.0 /HPF (0-13.0) 11/01/18 15:57 3+ /HPF 11/01/18 15:57 3+ /HPF 11/01/18 15:57 Random Vancomycin 13.9 ug/mL (0-40.0) 11/02/18 05:05 Blood Type O POSITIVE 12/24/18 10:27 Antibody Screen Negative 12/24/18 10:27 Crossmatch See Detail 12/24/18 10:27 Active Medications - Current Medications Current Medications: Generic Name Dose Route Start Last Admin Trade Name Freq PRN Reason Stop Dose Admin Acetaminophen 650 mg 12/11/18 15:21 12/23/18 21:45 Tylenol FEEDTUBE 650 mg Q6H PRN Administration Pain, Mild (1-3) Albuterol 2.5 mg 11/01/18 17:15 Proventil IH Q3HRT PRN Shortness Of Breath Lipase/Protease/Amylase 1 each 12/23/18 16:23 Pancreaze 10,500 Unit FEEDTUBE PRN PRN For Clogged Feeding Tube Ascorbic Acid 500 mg 11/01/18 22:00 12/24/18 09:41 Vitamin C FEEDTUBE 500 mg BID NORA Administration Atorvastatin Calcium 40 mg 11/01/18 22:00 12/23/18 21:45 Lipitor FEEDTUBE 40 mg QHS NORA Administration Carvedilol 6.25 mg 11/08/18 13:00 12/24/18 09:45 Coreg PO Not Given BID NORA Clonidine HCl 0.2 mg 11/05/18 17:18 12/17/18 17:31 Catapres-Tts Patch TD 0.2 mg Tu NORA Administration Enoxaparin Sodium 40 mg 11/02/18 10:00 12/24/18 09:39 Lovenox SUB-Q 40 mg QDAY@1000 NORA Administration Hydralazine HCl 10 mg 11/25/18 22:00 12/24/18 09:46 Apresoline PO Not Given Q12HR NORA Dextrose 1,000 mls @ 75 mls/hr 12/16/18 09:30 12/23/18 18:13 D5w IV 75 mls/hr DIRECT NORA Administration Cefepime HCl 2 gm in 100 mls @ 200 mls/hr 12/22/18 15:00 12/24/18 09:33 Maxipime/Ns 2 Gm/100 Ml IV 200 mls/hr Q12HR NORA Administration Protocol Sodium Chloride 500 mls @ 0 mls/hr 12/24/18 09:00 12/24/18 13:08 Nacl 0.9% 500 Ml IV 12/24/18 17:00 50 mls/hr ONCE NR Administration As Directed Levetiracetam 500 mg 11/01/18 22:00 12/24/18 09:39 Keppra FEEDTUBE 500 mg BID NORA Administration Morphine Sulfate 2 mg 11/01/18 17:15 12/23/18 08:54 Morphine IV 2 mg Q4H PRN Administration Pain, Moderate (4-6) Multivitamins 5 ml 11/02/18 10:00 12/24/18 09:39 Centrum Liq FEEDTUBE 5 ml QDAY NORA Administration Polyethylene Glycol 17 gm 12/10/18 15:00 12/24/18 09:44 Miralax 3350 FEEDTUBE Not Given QDAY NORA Senna 8.6 mg 12/10/18 14:56 Senokot FEEDTUBE Q12H PRN Laxative Effect Simple Syrup 15 ml 12/23/18 16:23 Simple Syrup FEEDTUBE PRN PRN Hypoglycemia Simple Syrup 30 ml 12/23/18 16:23 Simple Syrup FEEDTUBE PRN PRN Hypoglycemia Sodium Bicarbonate 325 mg 12/23/18 16:23 Sodium Bicarbonate FEEDTUBE PRN PRN For Clogged Feeding Tube Sodium Biphosphate/Sodium Phosphate 133 ml 12/10/18 14:55 Fleet [place] QDAY PRN Bowel Movement Sodium Chloride 10 ml 11/01/18 22:00 12/24/18 09:44 Sodium Chloride Flush Syringe 10 Ml IV 10 ml BID NORA Administration Sodium Chloride 10 ml 11/01/18 17:15 11/23/18 04:05 Sodium Chloride Flush Syringe 10 Ml IV 10 ml PRN PRN Administration LINE FLUSH Zinc Sulfate 220 mg 11/02/18 10:00 12/24/18 09:43 Zinc Sulfate PO 220 mg DAILY NORA Administration Nutrition/Malnutrition Assess - Dietary Evaluation Nutrition/Malnutrition Findings: Nutrition Notes Start: 11/04/18 16 :00 Freq: Status: Active Protocol: Document 12/23/18 16:16 OH (Rec: 12/23/18 16:23 OH [id number]) Nutrition Notes Initial or Follow up Brief Note Current Diagnosis COPD,Diabetes,Sepsis, Hypertension,Heart Failure, Stroke Other Pertinent Diagnosis Infected sacral decubitus, Dementia, BPH, UTI Current Diet TF - Glucerna 1.2 at 70ml/hr + Mario BID Labs/Tests Reviewed Pertinent Medications Reviewed Height 5 ft 8 in Weight 62.1 kg [place] Body Weight (kg) 70.00 BMI 20.8 Subjective/Other Information Pt. lying in bed with glucerna 1.2 infusing @ 70 mL/hr. Per RN pt tolerating TF w/o n/v/ sputum. Pt. has order for Mario but RN states he has none in his pt cubby. Will f/u to ensure providing as ordered. Percent of energy/protein needs met: 100/100 Burn Absent Trauma Absent Is patient on ventilator? No Is Patient Ambulatory and/or Out of Bed No REE-([facility]-confined to bed) 1638.480 Kcal/Kg value to use for calculation 34 Approximate Energy Requirements Using 2111 kcal/Kg Calculation Used for Recommendations Kcal/kg Additional Notes Pro needs 1.5-2g/k-124g/ day Fluid needs 1ml/kcal Nutrition Intervention Nutrition Support: Glucerna 1.2 at 70ml/hr Water flush of 200 mls q 4 hrs until hypernatremia resolves. Water flush of 100 mls q 4 hrs once hypernatremia resolves. Kcal 2,016 Protein (gm) 101 Carbohydrates (gm) 192 Fat (gm) 101 Fluid (mL) 1,352 Add Supplement/Snack (indicate name/kcal Mario BID /protein ) Provides kCal: 190 Provides Protein (gm) 5 Goal #1 TF tolerance Goal #2 TF to continue to meet at least 75% of calorie and protein needs Follow-Up By: 12/26/18 Additional Comments Follow for TF tolerance, Mario administration
[2018-12-24] MEDS: D5W 1,000 ML IV SCH (22:55)
[2018-12-25 06:47] LABS: Hemoglobin 7.9 gm/dl (11.8-15.2)
[2018-12-25] MEDS: KEPPRA FEEDTUBE SCH ×2 (09:17→23:32)
[2018-12-25] MEDS: LOVENOX SUB-Q SCH (09:20)
[2018-12-25] MEDS: VITAMIN C FEEDTUBE SCH ×2 (09:20→23:33)
[2018-12-25] MEDS: Centrum Liq FEEDTUBE SCH (09:20)
[2018-12-25] MEDS: ZINC SULFATE PO SCH (09:21)
[2018-12-25] MEDS: COREG PO SCH ×2 (09:21→23:33)
[2018-12-25] MEDS: APRESOLINE PO SCH ×2 (09:22→23:33)
[2018-12-25] MEDS: MAXIPIME/NS 2 GM/100 ML 2 GM/100 ML BAG IV SCH ×2 (09:22→23:26)
[2018-12-25] MEDS: MIRALAX 3350 FEEDTUBE SCH (09:23)
[2018-12-25] MEDS: SODIUM CHLORIDE FLUSH SYRINGE 10 ML IV SCH ×2 (09:23→23:28)
--- NOTE | 2018-12-25 10:52 | Progress Note ---
Assessment and Plan Cultures: Blood culture 10/01/2018 MRSA 2 of 4. Blood culture 10/03/2018 MRSA Blood culture 10/08/2018 no growth Blood culture 10/11/2018 no growth Blood culture 10/21/2018 no growth Blood culture 11/01/2018 Staph haemolyticus 2 of 4 bottles, resistent to methicillin and MRSA 1 of 4 bottles Blood culture 11/04/2018 no growth Blood culture 12/21/2018 no growth Assessment: 67 y/o male with history of HTN, CVA, Obstructive Uropathy, Contracture, Multiple Decubitus Ulcers, [place], DM, OA, Seizure Disorder, COPD, Dementia, Debility, BPH, well known to ID due to multiple admissions secondary to ducubitus ulcers infections and recurrent bacteremia, last time admitted on 10/02/2018 found with MRSA bacteremia jessica from decubitus ulcers mainly active large left trochanteric with bone exposure and sacral with bone exposure. Patient's infection was deemed incurable and hospice was recommended. Patient wa s discharged back to [facility] on IV vancomycin 1 gm every 48 hours for total 6 weeks ending 11/12/2018 via neck tunneled cath. Patient was readmitted on due to AMS, worsening SOB. Patient is lethargic and unable to provide history. At the [facility] he was found to have respiratory distress upon evaluation the morning of admission,pulse oximetry in the 80's: 1) New Fever: Improved. No fever >24 hours. Repeat blood cultures show no growth. Left tunneled PICC now nonfunctioning. Central venous catheter removed by vascular. Now peripheral IV access. Last dose of Cefepime tomorrow to complete 5 days of treatment. 2) Severe Sepsis: Resolved. 3) Staph haemolyticus and MRSA bacteremia with recent MRSA bacteremia: Blood culture 11/01/2018 Staph haemolyticus 2 of 4 bottles and MRSA 1 of 4. Source likely multiple decubitus ulcers or Neck IV central line. Patient is failing vancomycin. He has a tunneled neck cath. Recent TTE negative for vegetations. On daptomycin. 4) Recent septic shock due to polymicrobial bacteremia ESBL and carbapenem resistant E coli, MDR Proteus, Strep and E faecalis on 07/29/2018 probably from multiple infected decubitus ulcers and less likely UTI. Repeat blood cultures 07/31/2018 showed same MDR E coli 1 of 4 bottles then 08/06/2018 blood cultures showed no growth. Patient was treated with Vabomere for 14 days. 5) Multiple infected decubitus ulcers: His prognosis has been poor and hospice has been recommended several times in the past but family has declined. declined. His wounds are not curable considering his contractures, bed bound status and poor nutritional status. There was also suspicion of septic arthritis of left hip from decubitus ulcer. S/p debridement of multiple pressure ulcerations on 11/07/2018- stage 4 left hip pressure ulceration was surgically excisionally debrided of necrotic bone, stage 3 sacral, right ankle and left heel pressure ulcers were then surgically, excisionally debrided of necrotic SQ fat, stage 4 right heel, left lateral heel and right lateral leg ulcerations were surgically, excisionally debrided of necrotic SQ tissue, muscle and fascia. Dr Man recommended bilateral AKA, patient and daughter refused. Dr Man recommended Orthopedic consultation for possible left hip disarticulation as his left hip joint is crumbling and has profuse purulent drainage. 6) Recurrent UTI: new bright placed this admission 7) Acute encephalopathy: multifactorial. 8) Acute resp failure: On Recommendations: Continue Cefepime 2 gms IV every 12 hours, D4 of D5 - last dose tomorrow Needs to be hospice Grim prognosis. Jacquie Jean Baptiste NP [facility] M: [phone] O:[phone] Subjective Date of service: 12/25/18 Principal diagnosis: Severe Sepsis; Ac. Hypoxemic Resp failure; Anemia; Seizure; UTI; BPH Interval history: Patient seen and examined. Awake. Alert. No acute distress reported. No fevers. Objective - Exam Narrative Exam: General appearance: Awake. Alert. No acute distress Eyes: anicteric sclerae, moist conjunctivae; no lid-lag; PERRLA HENT: Atraumatic; oropharynx limited Neck: Trachea midline; supple, no thyromegaly or lymphadenopathy Lungs: CTA CV: RRR no murmur Abdomen: Soft, non-tender Extremities: marked legs contractions, multiple decubitus ulcers covered with dressings. Right leg dressing with serosanguinous drainage. Skin: multiple skin tears Psych: Agitated. Lines: PIV - Constitutional Vitals: Vital Signs Temp Pulse Resp BP Pulse Ox 98.6 F 105 H 20 133/77 96 12/25/18 07:26 12/25/18 09:22 12/25/18 07:26 12/25/18 09:22 12/25/18 07:26 Temperature -Last 24 Hours Temperature 98.6 F Temperature 97.8 F Temperature 99.6 F Temperature 99.5 F Temperature 97.8 F Temperature 97.8 F Temperature 98.8 F Temperature 98.3 F Temperature 98.8 F Temperature 98.3 F Temperature 98.2 F Temperature 98.2 F - Labs CBC & Chem 7: 12/25/18 05:50 12/24/18 05:59 Labs: Abnormal lab results 11/25/18 12/24/18 12/24/18 Range/Units 15:28 10:27 11:49 Hgb (11.8-15.2) gm/dl Hct (35.5-45.6) % POC Glucose 146 H (70-105) Crossmatch See Detail See Detail 12/24/18 12/25/18 12/25/18 Range/Units 18:05 00:14 05:50 Hgb 7.9 L (11.8-15.2) gm/dl Hct 24.0 L (35.5-45.6) % POC Glucose 139 H 160 H (70-105) Crossmatch 12/25/18 Range/Units 05:54 Hgb (11.8-15.2) gm/dl Hct (35.5-45.6) % POC Glucose 137 H (70-105) Crossmatch
--- NOTE | 2018-12-25 11:50 | Event Note ---
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 Nonfunctioning left tunnel central venous catheter. His central venous catheter was removed. Given the fact that the family has refused all interventions, would consider reinsertion of long-term IV access futile.
--- NOTE | 2018-12-25 11:52 | Operative Report ---
Operative Report Operative Report: Exam: Removal of tunneled central venous catheter Clinical indication: No functioning catheter, catheter no longer needed Date: 12/25/2018 Procedure: The patient is a left indwelling tunneled central venous catheter. The patient is nonverbal. Evaluation of the patient's left chest wall catheter demonstrates no significant erythema or exudates. The patient's bandage was removed. The central venous catheter was then removed intact. Sterile dressing was then applied. The patient tolerated the procedure well. There were no mucosal procedure compensations. Impression: Removal of tunneled central venous catheter.
--- NOTE | 2018-12-25 14:32 | Progress Note ---
Assessment and Plan Patient is weak and contracted and has multiple pressure wounds. Patients general medical condition poor and unchanged. Patient is awake. On room air at this time. No acute respiratory distress. O2 sat 96%. Patient afebrile. No leukocytosis. . - Patient Problems (1) Respiratory failure Current Visit: Yes Status: Acute Qualifiers: Chronicity: acute Respiratory failure complication: hypoxia Qualified Code(s): J96.01 - Acute respiratory failure with hypoxia Plan to address problem: Continue O2 supplementation 2 L via nasal canula prn for shortness of breath Albuterol and Atrovent treatment q6h. Continue SQ Levonox. Recommend GI prophylaxis. (2) Seizure Current Visit: Yes Status: Acute Plan to address problem: Management as per neurologist. (3) Sepsis Current Visit: Yes Status: Acute Plan to address problem: Antibiotic management as per infectious diseases. Patient presently on cefepime (4) UTI (urinary tract infection) Current Visit: Yes Status: Acute Qualifiers: Encounter type: initial encounter Plan to address problem: Antibiotic management as per infectious diseases. Patient presently on cefepime. (5) ARF (acute renal failure) with tubular necrosis Current Visit: No Status: Acute Plan to address problem: Management as per Nephrology. Subjective Date of service: 12/25/18 Principal diagnosis: Severe Sepsis; Ac. Hypoxemic Resp failure; Anemia; Seizure; UTI; BPH Interval history: Patient is weak and contracted and has multiple pressure wounds. Patients general medical condition poor and unchanged. Patient is awake. On room air at this time. No acute respiratory distress. O2 sat 96%. Patient afebrile. No leukocytosis. Patient waiting for placement. Objective Vital Signs - 12hr 12/25/18 12/25/18 12/25/18 07:26 09:21 09:22 Temperature 98.6 F Pulse Rate 110 H 104 H 105 H Respiratory 20 Rate Blood Pressure 134/60 133/77 133/77 O2 Sat by Pulse 96 Oximetry Constitutional: no acute distress, alert Eyes: non-icteric, other (Weak, emaciated and contracted.) ENT: oropharynx moist Neck: no lymphadenopathy, no JVD, other (mild stiffness / contracture) Effort: normal Ascultation: Bilateral: diminished breath sounds, rhonchi Percussion: Bilateral: not dull Cardiovascular: regular rate and rhythm Gastrointestinal: normoactive bowel sounds, soft, non-tender, non-distended Integumentary: rash Extremities: no cyanosis, no edema, pulses normal, other (Patient has pressure ulcer at multiple areas, including sacral area.) Neurologic: non-focal exam, pupils equal and round, CN II-XII normal, other (+ contractures) Psychiatric: mood appropriate, affect normal CBC and BMP: 12/25/18 05:50 12/24/18 05:59 ABG, PT/INR, D-dimer: ABG POC ABG pH 7.494 (7.35-7.45) H 11/01/18 15:27 POC ABG pCO2 34.5 (35-45) L 11/01/18 15:27 POC ABG pO2 139 (80-105) H 11/01/18 15:27 POC ABG HCO3 26.5 (22-26 mml/L) 11/01/18 15:27 POC ABG Total CO2 28 (23-27mmol/L) 11/01/18 15:27 POC ABG O2 Sat 99 11/01/18 15:27 PT/INR, D-dimer PT 16.3 Sec. (12.2-14.9) H 11/01/18 14:50 INR 1.35 (0.87-1.13) H 11/01/18 14:50 Abnormal lab findings: Abnormal Labs 11/01/18 11/01/18 11/01/18 14:50 14:50 14:50 WBC 15.3 H RBC 2.76 L Hgb 7.9 L Hct 23.5 L MCV MCH MCHC RDW 18.3 H Plt Count 567 H Lymph % (Auto) 6.5 L [place] % (Auto) 8.5 H Eos % (Auto) Lymph # 1.0 L [place] # 1.3 H Eos # Seg Neutrophils % 83.4 H Seg Neutrophils # 12.7 H PT 16.3 H INR 1.35 H POC ABG pH POC ABG pCO2 POC ABG pO2 VBG pH Sodium Potassium Chloride Carbon Dioxide BUN 49 H Creatinine Glucose 132 H POC Glucose Calcium Magnesium AST 90 H ALT 77 H Alkaline Phosphatase 350 H Total Creatine Kinase NT-Pro-B Natriuret Pep Albumin 1.6 L Urine WBC (Auto) Crossmatch 11/01/18 11/01/18 11/01/18 14:50 14:50 15:27 WBC RBC Hgb Hct MCV MCH MCHC RDW Plt Count Lymph % (Auto) [place] % (Auto) Eos % (Auto) Lymph # [place] # Eos # Seg Neutrophils % Seg Neutrophils # PT INR POC ABG pH 7.494 H POC ABG pCO2 34.5 L POC ABG pO2 139 H VBG pH 7.499 H Sodium Potassium Chloride Carbon Dioxide BUN Creatinine Glucose POC Glucose Calcium Magnesium AST ALT Alkaline Phosphatase Total Creatine Kinase NT-Pro-B Natriuret Pep 6776 H Albumin Urine WBC (Auto) Crossmatch 11/01/18 11/03/18 11/03/18 15:57 03:41 03:41 WBC 12.8 H RBC 2.55 L Hgb 6.9 L Hct 22.2 L MCV MCH 27 L MCHC 31 L RDW 17.9 H Plt Count 519 H Lymph % (Auto) [place] % (Auto) Eos % (Auto) Lymph # [place] # Eos # Seg Neutrophils % Seg Neutrophils # PT INR POC ABG pH POC ABG pCO2 POC ABG pO2 VBG pH Sodium 147 H Potassium Chloride 110.3 H Carbon Dioxide BUN 55 H Creatinine Glucose POC Glucose Calcium Magnesium AST ALT Alkaline Phosphatase Total Creatine Kinase NT-Pro-B Natriuret Pep Albumin Urine WBC (Auto) > 182.0 H Crossmatch 11/03/18 11/04/18 11/04/18 12:51 05:12 05:12 WBC 11.5 H RBC 2.94 L Hgb 8.3 L Hct 25.3 L MCV MCH MCHC RDW 17.3 H Plt Count 514 H Lymph % (Auto) [place] % (Auto) Eos % (Auto) Lymph # [place] # Eos # Seg Neutrophils % Seg Neutrophils # PT INR POC ABG pH POC ABG pCO2 POC ABG pO2 VBG pH Sodium 147 H Potassium Chloride 112.4 H Carbon Dioxide BUN 52 H Creatinine Glucose POC Glucose Calcium Magnesium AST ALT Alkaline Phosphatase Total Creatine Kinase NT-Pro-B Natriuret Pep Albumin Urine WBC (Auto) Crossmatch See Detail 11/05/18 11/05/18 11/06/18 04:50 04:50 05:42 WBC RBC 3.03 L 2.80 L Hgb 8.7 L 7.9 L Hct 26.6 L 24.7 L MCV MCH MCHC RDW 17.1 H 17.0 H Plt Count 502 H 478 H Lymph % (Auto) 10.4 L [place] % (Auto) 8.6 H Eos % (Auto) 4.7 H Lymph # 1.0 L [place] # Eos # 0.5 H Seg Neutrophils % 75.6 H Seg Neutrophils # PT INR POC ABG pH POC ABG pCO2 POC ABG pO2 VBG pH Sodium 149 H Potassium Chloride 114.4 H Carbon Dioxide 21 L BUN 50 H Creatinine Glucose 108 H POC Glucose Calcium Magnesium AST ALT Alkaline Phosphatase Total Creatine Kinase NT-Pro-B Natriuret Pep Albumin Urine WBC (Auto) Crossmatch 11/06/18 11/11/18 11/12/18 05:42 18:54 00:22 WBC RBC Hgb Hct MCV MCH MCHC RDW Plt Count Lymph % (Auto) [place] % (Auto) Eos % (Auto) Lymph # [place] # Eos # Seg Neutrophils % Seg Neutrophils # PT INR POC ABG pH POC ABG pCO2 POC ABG pO2 VBG pH Sodium 149 H Potassium Chloride 113.4 H Carbon Dioxide BUN 50 H Creatinine Glucose 121 H POC Glucose 114 H 123 H Calcium Magnesium AST ALT Alkaline Phosphatase Total Creatine Kinase NT-Pro-B Natriuret Pep Albumin Urine WBC (Auto) Crossmatch 11/12/18 11/12/18 11/13/18 06:49 11:35 06:34 WBC RBC Hgb Hct MCV MCH MCHC RDW Plt Count Lymph % (Auto) [place] % (Auto) Eos % (Auto) Lymph # [place] # Eos # Seg Neutrophils % Seg Neutrophils # PT INR POC ABG pH POC ABG pCO2 POC ABG pO2 VBG pH Sodium Potassium Chloride Carbon Dioxide BUN Creatinine Glucose POC Glucose 129 H 123 H 128 H Calcium Magnesium AST ALT Alkaline Phosphatase Total Creatine Kinase NT-Pro-B Natriuret Pep Albumin Urine WBC (Auto) Crossmatch 11/13/18 11/13/18 11/13/18 09:26 09:26 15:13 WBC RBC 3.08 L Hgb 8.6 L Hct 27.3 L MCV MCH MCHC 31 L RDW 18.3 H Plt Count 504 H Lymph % (Auto) 11.7 L [place] % (Auto) 7.5 H Eos % (Auto) 7.0 H Lymph # [place] # Eos # 0.7 H Seg Neutrophils % 72.9 H Seg Neutrophils # PT INR POC ABG pH POC ABG pCO2 POC ABG pO2 VBG pH Sodium 153 H Potassium 6.3 H* 5.8 H Chloride 122.3 H Carbon Dioxide 21 L BUN 38 H Creatinine Glucose 112 H POC Glucose Calcium Magnesium AST ALT Alkaline Phosphatase Total Creatine Kinase NT-Pro-B Natriuret Pep Albumin Urine WBC (Auto) Crossmatch 11/13/18 11/13/18 11/14/18 22:10 23:45 13:17 WBC RBC Hgb Hct MCV MCH MCHC RDW Plt Count Lymph % (Auto) [place] % (Auto) Eos % (Auto) Lymph # [place] # Eos # Seg Neutrophils % Seg Neutrophils # PT INR POC ABG pH POC ABG pCO2 POC ABG pO2 VBG pH Sodium 155 H Potassium 5.3 H Chloride 122.3 H Carbon Dioxide BUN 35 H Creatinine Glucose 113 H POC Glucose 111 H 142 H Calcium Magnesium AST ALT Alkaline Phosphatase Total Creatine Kinase NT-Pro-B Natriuret Pep Albumin Urine WBC (Auto) Crossmatch 11/14/18 11/15/18 11/15/18 19:08 00:31 06:45 WBC RBC Hgb Hct MCV MCH MCHC RDW Plt Count Lymph % (Auto) [place] % (Auto) Eos % (Auto) Lymph # [place] # Eos # Seg Neutrophils % Seg Neutrophils # PT INR POC ABG pH POC ABG pCO2 POC ABG pO2 VBG pH Sodium Potassium Chloride Carbon Dioxide BUN Creatinine Glucose POC Glucose 116 H 125 H 131 H Calcium Magnesium AST ALT Alkaline Phosphatase Total Creatine Kinase NT-Pro-B Natriuret Pep Albumin Urine WBC (Auto) Crossmatch 11/15/18 11/15/18 11/15/18 07:13 07:13 19:03 WBC 13.2 H RBC 2.81 L Hgb 7.8 L Hct 24.5 L MCV MCH MCHC RDW 18.2 H Plt Count 454 H Lymph % (Auto) 9.0 L [place] % (Auto) 7.5 H Eos % (Auto) Lymph # [place] # 1.0 H Eos # 0.5 H Seg Neutrophils % 78.8 H Seg Neutrophils # 10.4 H PT INR POC ABG pH POC ABG pCO2 POC ABG pO2 VBG pH Sodium 149 H Potassium 5.2 H Chloride 117.2 H Carbon Dioxide BUN 38 H Creatinine Glucose 114 H POC Glucose 141 H Calcium Magnesium AST ALT Alkaline Phosphatase Total Creatine Kinase NT-Pro-B Natriuret Pep Albumin Urine WBC (Auto) Crossmatch 11/16/18 11/16/18 11/16/18 01:15 01:15 06:45 WBC RBC Hgb Hct MCV MCH MCHC RDW Plt Count Lymph % (Auto) [place] % (Auto) Eos % (Auto) Lymph # [place] # Eos # Seg Neutrophils % Seg Neutrophils # PT INR POC ABG pH POC ABG pCO2 POC ABG pO2 VBG pH Sodium Potassium 5.3 H Chloride Carbon Dioxide BUN Creatinine Glucose POC Glucose 129 H Calcium Magnesium 2.60 H AST ALT Alkaline Phosphatase Total Creatine Kinase NT-Pro-B Natriuret Pep Albumin Urine WBC (Auto) Crossmatch 11/16/18 11/16/18 11/17/18 13:20 18:02 00:16 WBC RBC Hgb Hct MCV MCH MCHC RDW Plt Count Lymph % (Auto) [place] % (Auto) Eos % (Auto) Lymph # [place] # Eos # Seg Neutrophils % Seg Neutrophils # PT INR POC ABG pH POC ABG pCO2 POC ABG pO2 VBG pH Sodium Potassium Chloride Carbon Dioxide BUN Creatinine Glucose POC Glucose 130 H 127 H 120 H Calcium Magnesium AST ALT Alkaline Phosphatase Total Creatine Kinase NT-Pro-B Natriuret Pep Albumin Urine WBC (Auto) Crossmatch 11/17/18 11/17/18 11/17/18 05:48 08:02 08:02 WBC RBC Hgb 7.5 L Hct 23.5 L MCV MCH MCHC RDW Plt Count Lymph % (Auto) [place] % (Auto) Eos % (Auto) Lymph # [place] # Eos # Seg Neutrophils % Seg Neutrophils # PT INR POC ABG pH POC ABG pCO2 POC ABG pO2 VBG pH Sodium Potassium Chloride 110.1 H Carbon Dioxide 21 L BUN 38 H Creatinine Glucose 121 H POC Glucose 130 H Calcium Magnesium AST ALT Alkaline Phosphatase Total Creatine Kinase NT-Pro-B Natriuret Pep Albumin Urine WBC (Auto) Crossmatch 11/17/18 11/17/18 11/18/18 12:17 16:48 06:00 WBC RBC Hgb Hct MCV MCH MCHC RDW Plt Count Lymph % (Auto) [place] % (Auto) Eos % (Auto) Lymph # [place] # Eos # Seg Neutrophils % Seg Neutrophils # PT INR POC ABG pH POC ABG pCO2 POC ABG pO2 VBG pH Sodium Potassium Chloride Carbon Dioxide BUN Creatinine Glucose POC Glucose 140 H 120 H 137 H Calcium Magnesium AST ALT Alkaline Phosphatase Total Creatine Kinase NT-Pro-B Natriuret Pep Albumin Urine WBC (Auto) Crossmatch 11/19/18 11/19/18 11/19/18 00:20 05:35 06:11 WBC RBC Hgb Hct MCV MCH MCHC RDW Plt Count Lymph % (Auto) [place] % (Auto) Eos % (Auto) Lymph # [place] # Eos # Seg Neutrophils % Seg Neutrophils # PT INR POC ABG pH POC ABG pCO2 POC ABG pO2 VBG pH Sodium Potassium Chloride Carbon Dioxide BUN Creatinine Glucose POC Glucose 111 H 126 H Calcium Magnesium AST ALT Alkaline Phosphatase Total Creatine Kinase 53 L NT-Pro-B Natriuret Pep Albumin Urine WBC (Auto) Crossmatch 11/19/18 11/19/18 11/20/18 11:37 23:43 06:52 WBC RBC Hgb Hct MCV MCH MCHC RDW Plt Count Lymph % (Auto) [place] % (Auto) Eos % (Auto) Lymph # [place] # Eos # Seg Neutrophils % Seg Neutrophils # PT INR POC ABG pH POC ABG pCO2 POC ABG pO2 VBG pH Sodium Potassium Chloride Carbon Dioxide BUN Creatinine Glucose POC Glucose 139 H 145 H 125 H Calcium Magnesium AST ALT Alkaline Phosphatase Total Creatine Kinase NT-Pro-B Natriuret Pep Albumin Urine WBC (Auto) Crossmatch 11/20/18 11/20/18 11/20/18 09:55 09:55 11:49 WBC RBC 3.04 L Hgb 8.4 L Hct 26.1 L MCV MCH MCHC RDW 17.5 H Plt Count Lymph % (Auto) [place] % (Auto) Eos % (Auto) Lymph # [place] # Eos # Seg Neutrophils % Seg Neutrophils # PT INR POC ABG pH POC ABG pCO2 POC ABG pO2 VBG pH Sodium 149 H Potassium Chloride 114.5 H Carbon Dioxide 21 L BUN 35 H Creatinine Glucose 127 H POC Glucose 150 H Calcium Magnesium AST ALT Alkaline Phosphatase Total Creatine Kinase NT-Pro-B Natriuret Pep Albumin Urine WBC (Auto) Crossmatch 11/20/18 11/20/18 11/21/18 18:02 23:49 06:14 WBC RBC Hgb Hct MCV MCH MCHC RDW Plt Count Lymph % (Auto) [place] % (Auto) Eos % (Auto) Lymph # [place] # Eos # Seg Neutrophils % Seg Neutrophils # PT INR POC ABG pH POC ABG pCO2 POC ABG pO2 VBG pH Sodium Potassium Chloride Carbon Dioxide BUN Creatinine Glucose POC Glucose 131 H 137 H 133 H Calcium Magnesium AST ALT Alkaline Phosphatase Total Creatine Kinase NT-Pro-B Natriuret Pep Albumin Urine WBC (Auto) Crossmatch 11/21/18 11/21/18 11/21/18 10:00 12:09 18:04 WBC RBC Hgb Hct MCV MCH MCHC RDW Plt Count Lymph % (Auto) [place] % (Auto) Eos % (Auto) Lymph # [place] # Eos # Seg Neutrophils % Seg Neutrophils # PT INR POC ABG pH POC ABG pCO2 POC ABG pO2 VBG pH Sodium Potassium Chloride 110.6 H Carbon Dioxide BUN 31 H Creatinine Glucose 119 H POC Glucose 116 H 126 H Calcium Magnesium AST ALT Alkaline Phosphatase Total Creatine Kinase NT-Pro-B Natriuret Pep Albumin Urine WBC (Auto) Crossmatch 11/22/18 11/22/18 11/22/18 00:14 05:47 06:23 WBC RBC Hgb Hct MCV MCH MCHC RDW Plt Count Lymph % (Auto) [place] % (Auto) Eos % (Auto) Lymph # [place] # Eos # Seg Neutrophils % Seg Neutrophils # PT INR POC ABG pH POC ABG pCO2 POC ABG pO2 VBG pH Sodium Potassium Chloride 107.6 H Carbon Dioxide BUN 32 H Creatinine 0.7 L Glucose 116 H POC Glucose 122 H 119 H Calcium Magnesium AST ALT Alkaline Phosphatase Total Creatine Kinase NT-Pro-B Natriuret Pep Albumin Urine WBC (Auto) Crossmatch 11/22/18 11/22/18 11/22/18 08:40 12:19 17:39 WBC RBC Hgb Hct MCV MCH MCHC RDW Plt Count Lymph % (Auto) [place] % (Auto) Eos % (Auto) Lymph # [place] # Eos # Seg Neutrophils % Seg Neutrophils # PT INR POC ABG pH POC ABG pCO2 POC ABG pO2 VBG pH Sodium Potassium Chloride Carbon Dioxide BUN Creatinine Glucose POC Glucose 150 H 111 H 108 H Calcium Magnesium AST ALT Alkaline Phosphatase Total Creatine Kinase NT-Pro-B Natriuret Pep Albumin Urine WBC (Auto) Crossmatch 11/23/18 11/23/18 11/23/18 00:36 05:37 05:56 WBC RBC Hgb Hct MCV MCH MCHC RDW Plt Count Lymph % (Auto) [place] % (Auto) Eos % (Auto) Lymph # [place] # Eos # Seg Neutrophils % Seg Neutrophils # PT INR POC ABG pH POC ABG pCO2 POC ABG pO2 VBG pH Sodium 136 L Potassium Chloride Carbon Dioxide BUN 30 H Creatinine 0.7 L Glucose 103 H POC Glucose 125 H 122 H Calcium Magnesium 2.50 H AST ALT Alkaline Phosphatase Total Creatine Kinase NT-Pro-B Natriuret Pep Albumin Urine WBC (Auto) Crossmatch 11/23/18 11/23/18 11/23/18 11:56 17:39 23:40 WBC RBC Hgb Hct MCV MCH MCHC RDW Plt Count Lymph % (Auto) [place] % (Auto) Eos % (Auto) Lymph # [place] # Eos # Seg Neutrophils % Seg Neutrophils # PT INR POC ABG pH POC ABG pCO2 POC ABG pO2 VBG pH Sodium Potassium Chloride Carbon Dioxide BUN Creatinine Glucose POC Glucose 121 H 113 H 117 H Calcium Magnesium AST ALT Alkaline Phosphatase Total Creatine Kinase NT-Pro-B Natriuret Pep Albumin Urine WBC (Auto) Crossmatch 11/24/18 11/24/18 11/24/18 05:13 12:00 18:13 WBC RBC Hgb Hct MCV MCH MCHC RDW Plt Count Lymph % (Auto) [place] % (Auto) Eos % (Auto) Lymph # [place] # Eos # Seg Neutrophils % Seg Neutrophils # PT INR POC ABG pH POC ABG pCO2 POC ABG pO2 VBG pH Sodium Potassium Chloride Carbon Dioxide BUN Creatinine Glucose POC Glucose 143 H 123 H 124 H Calcium Magnesium AST ALT Alkaline Phosphatase Total Creatine Kinase NT-Pro-B Natriuret Pep Albumin Urine WBC (Auto) Crossmatch 11/24/18 11/25/18 11/25/18 23:34 05:25 05:25 WBC RBC 2.48 L Hgb 6.8 L Hct 21.2 L MCV MCH MCHC RDW 17.7 H Plt Count Lymph % (Auto) [place] % (Auto) Eos % (Auto) Lymph # [place] # Eos # Seg Neutrophils % Seg Neutrophils # PT INR POC ABG pH POC ABG pCO2 POC ABG pO2 VBG pH Sodium Potassium Chloride 108.8 H Carbon Dioxide BUN 30 H Creatinine 0.7 L Glucose 112 H POC Glucose 115 H Calcium Magnesium AST ALT Alkaline Phosphatase Total Creatine Kinase NT-Pro-B Natriuret Pep Albumin Urine WBC (Auto) Crossmatch 11/25/18 11/25/18 11/25/18 06:46 11:15 11:28 WBC RBC Hgb 7.4 L Hct 23.0 L MCV MCH MCHC RDW Plt Count Lymph % (Auto) [place] % (Auto) Eos % (Auto) Lymph # [place] # Eos # Seg Neutrophils % Seg Neutrophils # PT INR POC ABG pH POC ABG pCO2 POC ABG pO2 VBG pH Sodium Potassium Chloride Carbon Dioxide BUN Creatinine Glucose POC Glucose 133 H 127 H Calcium Magnesium AST ALT Alkaline Phosphatase Total Creatine Kinase NT-Pro-B Natriuret Pep Albumin Urine WBC (Auto) Crossmatch 11/25/18 11/25/18 11/25/18 15:28 17:32 23:45 WBC RBC Hgb Hct MCV MCH MCHC RDW Plt Count Lymph % (Auto) [place] % (Auto) Eos % (Auto) Lymph # [place] # Eos # Seg Neutrophils % Seg Neutrophils # PT INR POC ABG pH POC ABG pCO2 POC ABG pO2 VBG pH Sodium Potassium Chloride Carbon Dioxide BUN Creatinine Glucose POC Glucose 115 H 130 H Calcium Magnesium AST ALT Alkaline Phosphatase Total Creatine Kinase NT-Pro-B Natriuret Pep Albumin Urine WBC (Auto) Crossmatch See Detail 11/26/18 11/26/18 11/26/18 06:13 06:20 06:20 WBC RBC 2.76 L Hgb 7.7 L Hct 23.4 L MCV MCH MCHC RDW 17.5 H Plt Count Lymph % (Auto) [place] % (Auto) Eos % (Auto) Lymph # [place] # Eos # Seg Neutrophils % Seg Neutrophils # PT INR POC ABG pH POC ABG pCO2 POC ABG pO2 VBG pH Sodium Potassium Chloride 109.9 H Carbon Dioxide BUN 30 H Creatinine 0.6 L Glucose 121 H POC Glucose 129 H Calcium Magnesium AST ALT Alkaline Phosphatase Total Creatine Kinase NT-Pro-B Natriuret Pep Albumin Urine WBC (Auto) Crossmatch 11/26/18 11/26/18 11/27/18 12:06 16:35 06:04 WBC RBC Hgb Hct MCV MCH MCHC RDW Plt Count Lymph % (Auto) [place] % (Auto) Eos % (Auto) Lymph # [place] # Eos # Seg Neutrophils % Seg Neutrophils # PT INR POC ABG pH POC ABG pCO2 POC ABG pO2 VBG pH Sodium Potassium Chloride Carbon Dioxide BUN Creatinine Glucose POC Glucose 139 H 107 H 126 H Calcium Magnesium AST ALT Alkaline Phosphatase Total Creatine Kinase NT-Pro-B Natriuret Pep Albumin Urine WBC (Auto) Crossmatch 11/27/18 11/27/18 11/28/18 13:14 17:47 07:03 WBC RBC Hgb Hct MCV MCH MCHC RDW Plt Count Lymph % (Auto) [place] % (Auto) Eos % (Auto) Lymph # [place] # Eos # Seg Neutrophils % Seg Neutrophils # PT INR POC ABG pH POC ABG pCO2 POC ABG pO2 VBG pH Sodium Potassium Chloride Carbon Dioxide BUN Creatinine Glucose POC Glucose 130 H 115 H 118 H Calcium Magnesium AST ALT Alkaline Phosphatase Total Creatine Kinase NT-Pro-B Natriuret Pep Albumin Urine WBC (Auto) Crossmatch 11/28/18 11/29/18 11/29/18 11:38 00:35 04:56 WBC RBC Hgb Hct MCV MCH MCHC RDW Plt Count Lymph % (Auto) [place] % (Auto) Eos % (Auto) Lymph # [place] # Eos # Seg Neutrophils % Seg Neutrophils # PT INR POC ABG pH POC ABG pCO2 POC ABG pO2 VBG pH Sodium Potassium Chloride Carbon Dioxide BUN Creatinine Glucose POC Glucose 126 H 107 H Calcium Magnesium AST ALT Alkaline Phosphatase Total Creatine Kinase 50 L NT-Pro-B Natriuret Pep Albumin Urine WBC (Auto) Crossmatch 11/29/18 11/29/18 11/29/18 05:49 11:46 18:17 WBC RBC Hgb Hct MCV MCH MCHC RDW Plt Count Lymph % (Auto) [place] % (Auto) Eos % (Auto) Lymph # [place] # Eos # Seg Neutrophils % Seg Neutrophils # PT INR POC ABG pH POC ABG pCO2 POC ABG pO2 VBG pH Sodium Potassium Chloride Carbon Dioxide BUN Creatinine Glucose POC Glucose 128 H 140 H 115 H Calcium Magnesium AST ALT Alkaline Phosphatase Total Creatine Kinase NT-Pro-B Natriuret Pep Albumin Urine WBC (Auto) Crossmatch 11/30/18 11/30/18 11/30/18 00:00 03:30 03:30 WBC RBC 2.97 L Hgb 8.1 L Hct 25.5 L MCV MCH 27 L MCHC RDW 17.7 H Plt Count Lymph % (Auto) 9.2 L [place] % (Auto) 10.0 H Eos % (Auto) 4.6 H Lymph # 1.0 L [place] # 1.1 H Eos # 0.5 H Seg Neutrophils % 75.6 H Seg Neutrophils # 8.4 H PT INR POC ABG pH POC ABG pCO2 POC ABG pO2 VBG pH Sodium Potassium Chloride Carbon Dioxide BUN 31 H Creatinine 0.7 L Glucose POC Glucose 120 H Calcium Magnesium AST ALT Alkaline Phosphatase Total Creatine Kinase NT-Pro-B Natriuret Pep Albumin Urine WBC (Auto) Crossmatch 11/30/18 11/30/18 11/30/18 06:54 11:45 16:59 WBC RBC Hgb Hct MCV MCH MCHC RDW Plt Count Lymph % (Auto) [place] % (Auto) Eos % (Auto) Lymph # [place] # Eos # Seg Neutrophils % Seg Neutrophils # PT INR POC ABG pH POC ABG pCO2 POC ABG pO2 VBG pH Sodium Potassium Chloride Carbon Dioxide BUN Creatinine Glucose POC Glucose 120 H 123 H 111 H Calcium Magnesium AST ALT Alkaline Phosphatase Total Creatine Kinase NT-Pro-B Natriuret Pep Albumin Urine WBC (Auto) Crossmatch 12/01/18 12/01/18 12/01/18 00:20 05:58 11:33 WBC RBC Hgb Hct MCV MCH MCHC RDW Plt Count Lymph % (Auto) [place] % (Auto) Eos % (Auto) Lymph # [place] # Eos # Seg Neutrophils % Seg Neutrophils # PT INR POC ABG pH POC ABG pCO2 POC ABG pO2 VBG pH Sodium Potassium Chloride Carbon Dioxide BUN Creatinine Glucose POC Glucose 113 H 127 H 138 H Calcium Magnesium AST ALT Alkaline Phosphatase Total Creatine Kinase NT-Pro-B Natriuret Pep Albumin Urine WBC (Auto) Crossmatch 12/02/18 12/03/18 12/03/18 00:33 05:07 05:07 WBC RBC 2.93 L Hgb 8.2 L Hct 24.9 L MCV MCH MCHC RDW 17.0 H Plt Count 470 H Lymph % (Auto) 9.3 L [place] % (Auto) 8.6 H Eos % (Auto) 5.4 H Lymph # 0.9 L [place] # Eos # 0.5 H Seg Neutrophils % 75.8 H Seg Neutrophils # PT INR POC ABG pH POC ABG pCO2 POC ABG pO2 VBG pH Sodium Potassium Chloride Carbon Dioxide BUN 30 H Creatinine 0.6 L Glucose 115 H POC Glucose 110 H Calcium Magnesium AST ALT Alkaline Phosphatase Total Creatine Kinase NT-Pro-B Natriuret Pep Albumin Urine WBC (Auto) Crossmatch 12/03/18 12/03/18 12/03/18 05:58 11:49 17:44 WBC RBC Hgb Hct MCV MCH MCHC RDW Plt Count Lymph % (Auto) [place] % (Auto) Eos % (Auto) Lymph # [place] # Eos # Seg Neutrophils % Seg Neutrophils # PT INR POC ABG pH POC ABG pCO2 POC ABG pO2 VBG pH Sodium Potassium Chloride Carbon Dioxide BUN Creatinine Glucose POC Glucose 127 H 138 H 127 H Calcium Magnesium AST ALT Alkaline Phosphatase Total Creatine Kinase NT-Pro-B Natriuret Pep Albumin Urine WBC (Auto) Crossmatch 12/05/18 12/05/18 12/05/18 00:22 05:53 17:18 WBC RBC Hgb Hct MCV MCH MCHC RDW Plt Count Lymph % (Auto) [place] % (Auto) Eos % (Auto) Lymph # [place] # Eos # Seg Neutrophils % Seg Neutrophils # PT INR POC ABG pH POC ABG pCO2 POC ABG pO2 VBG pH Sodium Potassium Chloride Carbon Dioxide BUN Creatinine Glucose POC Glucose 124 H 121 H 112 H Calcium Magnesium AST ALT Alkaline Phosphatase Total Creatine Kinase NT-Pro-B Natriuret Pep Albumin Urine WBC (Auto) Crossmatch 12/06/18 12/06/18 12/06/18 00:07 06:16 11:43 WBC RBC Hgb Hct MCV MCH MCHC RDW Plt Count Lymph % (Auto) [place] % (Auto) Eos % (Auto) Lymph # [place] # Eos # Seg Neutrophils % Seg Neutrophils # PT INR POC ABG pH POC ABG pCO2 POC ABG pO2 VBG pH Sodium Potassium Chloride Carbon Dioxide BUN Creatinine Glucose POC Glucose 111 H 117 H 121 H Calcium Magnesium AST ALT Alkaline Phosphatase Total Creatine Kinase NT-Pro-B Natriuret Pep Albumin Urine WBC (Auto) Crossmatch 12/06/18 12/07/18 12/07/18 20:57 06:41 12:09 WBC RBC Hgb Hct MCV MCH MCHC RDW Plt Count Lymph % (Auto) [place] % (Auto) Eos % (Auto) Lymph # [place] # Eos # Seg Neutrophils % Seg Neutrophils # PT INR POC ABG pH POC ABG pCO2 POC ABG pO2 VBG pH Sodium Potassium Chloride 107.2 H Carbon Dioxide BUN 27 H Creatinine 0.7 L Glucose POC Glucose 128 H 137 H Calcium Magnesium 2.50 H AST ALT Alkaline Phosphatase Total Creatine Kinase NT-Pro-B Natriuret Pep Albumin Urine WBC (Auto) Crossmatch 12/07/18 12/08/18 12/08/18 19:29 05:44 12:27 WBC RBC Hgb Hct MCV MCH MCHC RDW Plt Count Lymph % (Auto) [place] % (Auto) Eos % (Auto) Lymph # [place] # Eos # Seg Neutrophils % Seg Neutrophils # PT INR POC ABG pH POC ABG pCO2 POC ABG pO2 VBG pH Sodium Potassium Chloride Carbon Dioxide BUN Creatinine Glucose POC Glucose 110 H 126 H 130 H Calcium Magnesium AST ALT Alkaline Phosphatase Total Creatine Kinase NT-Pro-B Natriuret Pep Albumin Urine WBC (Auto) Crossmatch 12/08/18 12/09/18 12/09/18 17:44 00:20 06:42 WBC RBC Hgb Hct MCV MCH MCHC RDW Plt Count Lymph % (Auto) [place] % (Auto) Eos % (Auto) Lymph # [place] # Eos # Seg Neutrophils % Seg Neutrophils # PT INR POC ABG pH POC ABG pCO2 POC ABG pO2 VBG pH Sodium Potassium Chloride Carbon Dioxide BUN Creatinine Glucose POC Glucose 113 H 121 H 124 H Calcium Magnesium AST ALT Alkaline Phosphatase Total Creatine Kinase NT-Pro-B Natriuret Pep Albumin Urine WBC (Auto) Crossmatch 12/09/18 12/09/18 12/09/18 12:24 18:41 23:48 WBC RBC Hgb Hct MCV MCH MCHC RDW Plt Count Lymph % (Auto) [place] % (Auto) Eos % (Auto) Lymph # [place] # Eos # Seg Neutrophils % Seg Neutrophils # PT INR POC ABG pH POC ABG pCO2 POC ABG pO2 VBG pH Sodium Potassium Chloride Carbon Dioxide BUN Creatinine Glucose POC Glucose 114 H 109 H 128 H Calcium Magnesium AST ALT Alkaline Phosphatase Total Creatine Kinase NT-Pro-B Natriuret Pep Albumin Urine WBC (Auto) Crossmatch 12/10/18 12/10/18 12/11/18 07:07 11:28 00:24 WBC RBC Hgb Hct MCV MCH MCHC RDW Plt Count Lymph % (Auto) [place] % (Auto) Eos % (Auto) Lymph # [place] # Eos # Seg Neutrophils % Seg Neutrophils # PT INR POC ABG pH POC ABG pCO2 POC ABG pO2 VBG pH Sodium Potassium Chloride Carbon Dioxide BUN Creatinine Glucose POC Glucose 111 H 110 H 112 H Calcium Magnesium AST ALT Alkaline Phosphatase Total Creatine Kinase NT-Pro-B Natriuret Pep Albumin Urine WBC (Auto) Crossmatch 12/11/18 12/11/18 12/11/18 06:44 11:53 18:17 WBC RBC Hgb Hct MCV MCH MCHC RDW Plt Count Lymph % (Auto) [place] % (Auto) Eos % (Auto) Lymph # [place] # Eos # Seg Neutrophils % Seg Neutrophils # PT INR POC ABG pH POC ABG pCO2 POC ABG pO2 VBG pH Sodium Potassium Chloride Carbon Dioxide BUN Creatinine Glucose POC Glucose 111 H 132 H 133 H Calcium Magnesium AST ALT Alkaline Phosphatase Total Creatine Kinase NT-Pro-B Natriuret Pep Albumin Urine WBC (Auto) Crossmatch 12/11/18 12/12/18 12/12/18 23:58 00:05 06:11 WBC RBC 2.85 L Hgb 7.8 L Hct 24.4 L MCV MCH 27 L MCHC RDW 17.4 H Plt Count 459 H Lymph % (Auto) [place] % (Auto) 11.2 H Eos % (Auto) 5.4 H Lymph # [place] # 1.1 H Eos # 0.5 H Seg Neutrophils % Seg Neutrophils # PT INR POC ABG pH POC ABG pCO2 POC ABG pO2 VBG pH Sodium Potassium Chloride Carbon Dioxide BUN Creatinine Glucose POC Glucose 126 H 144 H Calcium Magnesium AST ALT Alkaline Phosphatase Total Creatine Kinase NT-Pro-B Natriuret Pep Albumin Urine WBC (Auto) Crossmatch 12/12/18 12/12/18 12/13/18 11:42 18:36 00:12 WBC RBC Hgb Hct MCV MCH MCHC RDW Plt Count Lymph % (Auto) [place] % (Auto) Eos % (Auto) Lymph # [place] # Eos # Seg Neutrophils % Seg Neutrophils # PT INR POC ABG pH POC ABG pCO2 POC ABG pO2 VBG pH Sodium Potassium Chloride Carbon Dioxide BUN Creatinine Glucose POC Glucose 106 H 117 H 115 H Calcium Magnesium AST ALT Alkaline Phosphatase Total Creatine Kinase NT-Pro-B Natriuret Pep Albumin Urine WBC (Auto) Crossmatch 12/13/18 12/13/18 12/13/18 05:58 11:52 23:57 WBC RBC Hgb Hct MCV MCH MCHC RDW Plt Count Lymph % (Auto) [place] % (Auto) Eos % (Auto) Lymph # [place] # Eos # Seg Neutrophils % Seg Neutrophils # PT INR POC ABG pH POC ABG pCO2 POC ABG pO2 VBG pH Sodium Potassium Chloride Carbon Dioxide BUN Creatinine Glucose POC Glucose 122 H 129 H 125 H Calcium Magnesium AST ALT Alkaline Phosphatase Total Creatine Kinase NT-Pro-B Natriuret Pep Albumin Urine WBC (Auto) Crossmatch 12/14/18 12/14/18 12/14/18 04:44 04:44 05:44 WBC RBC 2.56 L Hgb 7.2 L Hct 22.1 L MCV MCH MCHC RDW 17.8 H Plt Count 473 H Lymph % (Auto) [place] % (Auto) 11.5 H Eos % (Auto) 4.8 H Lymph # [place] # 1.1 H Eos # Seg Neutrophils % Seg Neutrophils # PT INR POC ABG pH POC ABG pCO2 POC ABG pO2 VBG pH Sodium 151 H Potassium Chloride 116.7 H Carbon Dioxide BUN 40 H Creatinine Glucose 114 H POC Glucose 117 H Calcium Magnesium AST 80 H ALT 67 H Alkaline Phosphatase 247 H Total Creatine Kinase NT-Pro-B Natriuret Pep Albumin 1.9 L Urine WBC (Auto) Crossmatch 12/14/18 12/15/18 12/15/18 11:29 00:01 05:13 WBC RBC 2.68 L Hgb 7.4 L Hct 23.1 L MCV MCH MCHC RDW 17.6 H Plt Count 454 H Lymph % (Auto) 13.3 L [place] % (Auto) 9.7 H Eos % (Auto) 6.9 H Lymph # [place] # Eos # 0.6 H Seg Neutrophils % Seg Neutrophils # PT INR POC ABG pH POC ABG pCO2 POC ABG pO2 VBG pH Sodium Potassium Chloride Carbon Dioxide BUN Creatinine Glucose POC Glucose 115 H 113 H Calcium Magnesium AST ALT Alkaline Phosphatase Total Creatine Kinase NT-Pro-B Natriuret Pep Albumin Urine WBC (Auto) Crossmatch 12/15/18 12/15/18 12/15/18 05:13 06:31 11:31 WBC RBC Hgb Hct MCV MCH MCHC RDW Plt Count Lymph % (Auto) [place] % (Auto) Eos % (Auto) Lymph # [place] # Eos # Seg Neutrophils % Seg Neutrophils # PT INR POC ABG pH POC ABG pCO2 POC ABG pO2 VBG pH Sodium 151 H Potassium Chloride 116.4 H Carbon Dioxide BUN 39 H Creatinine Glucose 110 H POC Glucose 130 H 127 H Calcium Magnesium AST 85 H ALT 78 H Alkaline Phosphatase 255 H Total Creatine Kinase NT-Pro-B Natriuret Pep Albumin 1.9 L Urine WBC (Auto) Crossmatch 12/15/18 12/16/18 12/16/18 17:54 00:27 00:33 WBC RBC Hgb Hct MCV MCH MCHC RDW Plt Count Lymph % (Auto) [place] % (Auto) Eos % (Auto) Lymph # [place] # Eos # Seg Neutrophils % Seg Neutrophils # PT INR POC ABG pH POC ABG pCO2 POC ABG pO2 VBG pH Sodium Potassium Chloride Carbon Dioxide BUN Creatinine Glucose POC Glucose 122 H 131 H Calcium Magnesium AST ALT Alkaline Phosphatase Total Creatine Kinase 50 L NT-Pro-B Natriuret Pep Albumin Urine WBC (Auto) Crossmatch 12/16/18 12/16/18 12/16/18 05:31 11:31 17:22 WBC RBC Hgb Hct MCV MCH MCHC RDW Plt Count Lymph % (Auto) [place] % (Auto) Eos % (Auto) Lymph # [place] # Eos # Seg Neutrophils % Seg Neutrophils # PT INR POC ABG pH POC ABG pCO2 POC ABG pO2 VBG pH Sodium Potassium Chloride Carbon Dioxide BUN Creatinine Glucose POC Glucose 138 H 121 H 114 H Calcium Magnesium AST ALT Alkaline Phosphatase Total Creatine Kinase NT-Pro-B Natriuret Pep Albumin Urine WBC (Auto) Crossmatch 12/16/18 12/17/18 12/17/18 23:56 05:01 05:01 WBC 11.1 H RBC 2.96 L Hgb 7.9 L Hct 25.7 L MCV MCH 27 L MCHC 31 L RDW 17.9 H Plt Count 479 H Lymph % (Auto) 11.3 L [place] % (Auto) 7.5 H Eos % (Auto) 4.5 H Lymph # [place] # Eos # 0.5 H Seg Neutrophils % 75.9 H Seg Neutrophils # 8.4 H PT INR POC ABG pH POC ABG pCO2 POC ABG pO2 VBG pH Sodium 155 H Potassium Chloride 121.2 H Carbon Dioxide BUN 41 H Creatinine Glucose 122 H POC Glucose 137 H Calcium Magnesium AST 97 H ALT 99 H Alkaline Phosphatase 279 H Total Creatine Kinase NT-Pro-B Natriuret Pep Albumin 1.8 L Urine WBC (Auto) Crossmatch 12/17/18 12/17/18 12/18/18 11:52 18:17 00:17 WBC RBC Hgb Hct MCV MCH MCHC RDW Plt Count Lymph % (Auto) [place] % (Auto) Eos % (Auto) Lymph # [place] # Eos # Seg Neutrophils % Seg Neutrophils # PT INR POC ABG pH POC ABG pCO2 POC ABG pO2 VBG pH Sodium Potassium Chloride Carbon Dioxide BUN Creatinine Glucose POC Glucose 142 H 140 H 160 H Calcium Magnesium AST ALT Alkaline Phosphatase Total Creatine Kinase NT-Pro-B Natriuret Pep Albumin Urine WBC (Auto) Crossmatch 12/18/18 12/18/18 12/18/18 05:39 05:40 05:40 WBC 11.7 H RBC 2.76 L Hgb 7.5 L Hct 23.8 L MCV MCH 27 L MCHC 31 L RDW 17.8 H Plt Count Lymph % (Auto) [place] % (Auto) Eos % (Auto) Lymph # [place] # Eos # Seg Neutrophils % Seg Neutrophils # PT INR POC ABG pH POC ABG pCO2 POC ABG pO2 VBG pH Sodium 153 H Potassium Chloride 117.6 H Carbon Dioxide BUN 48 H Creatinine Glucose 122 H POC Glucose 138 H Calcium Magnesium AST ALT Alkaline Phosphatase Total Creatine Kinase NT-Pro-B Natriuret Pep Albumin Urine WBC (Auto) Crossmatch 12/18/18 12/18/18 12/19/18 11:32 17:26 00:38 WBC RBC Hgb Hct MCV MCH MCHC RDW Plt Count Lymph % (Auto) [place] % (Auto) Eos % (Auto) Lymph # [place] # Eos # Seg Neutrophils % Seg Neutrophils # PT INR POC ABG pH POC ABG pCO2 POC ABG pO2 VBG pH Sodium Potassium Chloride Carbon Dioxide BUN Creatinine Glucose POC Glucose 136 H 125 H 126 H Calcium Magnesium AST ALT Alkaline Phosphatase Total Creatine Kinase NT-Pro-B Natriuret Pep Albumin Urine WBC (Auto) Crossmatch 12/19/18 12/19/18 12/19/18 05:22 05:22 06:19 WBC 12.2 H RBC 2.86 L Hgb 7.6 L Hct 24.4 L MCV MCH 27 L MCHC 31 L RDW 17.8 H Plt Count Lymph % (Auto) [place] % (Auto) Eos % (Auto) Lymph # [place] # Eos # Seg Neutrophils % Seg Neutrophils # PT INR POC ABG pH POC ABG pCO2 POC ABG pO2 VBG pH Sodium Potassium 5.9 H D Chloride 109.7 H Carbon Dioxide BUN 45 H Creatinine Glucose 107 H POC Glucose 136 H Calcium 8.3 L Magnesium AST ALT Alkaline Phosphatase Total Creatine Kinase NT-Pro-B Natriuret Pep Albumin Urine WBC (Auto) Crossmatch 12/19/18 12/19/18 12/19/18 08:23 11:44 17:09 WBC RBC Hgb Hct MCV MCH MCHC RDW Plt Count Lymph % (Auto) [place] % (Auto) Eos % (Auto) Lymph # [place] # Eos # Seg Neutrophils % Seg Neutrophils # PT INR POC ABG pH POC ABG pCO2 POC ABG pO2 VBG pH Sodium Potassium Chloride 107.7 H Carbon Dioxide BUN 42 H Creatinine Glucose 118 H POC Glucose 130 H 118 H Calcium Magnesium AST ALT Alkaline Phosphatase Total Creatine Kinase NT-Pro-B Natriuret Pep Albumin Urine WBC (Auto) Crossmatch 12/19/18 12/20/18 12/20/18 23:59 05:52 06:24 WBC RBC Hgb Hct MCV MCH MCHC RDW Plt Count Lymph % (Auto) [place] % (Auto) Eos % (Auto) Lymph # [place] # Eos # Seg Neutrophils % Seg Neutrophils # PT INR POC ABG pH POC ABG pCO2 POC ABG pO2 VBG pH Sodium Potassium 5.2 H Chloride 107.2 H Carbon Dioxide 21 L BUN 44 H Creatinine Glucose 118 H POC Glucose 150 H 138 H Calcium Magnesium AST ALT Alkaline Phosphatase Total Creatine Kinase NT-Pro-B Natriuret Pep Albumin Urine WBC (Auto) Crossmatch 12/20/18 12/20/18 12/21/18 11:34 17:10 00:07 WBC RBC Hgb Hct MCV MCH MCHC RDW Plt Count Lymph % (Auto) [place] % (Auto) Eos % (Auto) Lymph # [place] # Eos # Seg Neutrophils % Seg Neutrophils # PT INR POC ABG pH POC ABG pCO2 POC ABG pO2 VBG pH Sodium Potassium Chloride Carbon Dioxide BUN Creatinine Glucose POC Glucose 134 H 141 H 145 H Calcium Magnesium AST ALT Alkaline Phosphatase Total Creatine Kinase NT-Pro-B Natriuret Pep Albumin Urine WBC (Auto) Crossmatch 12/21/18 12/21/18 12/21/18 05:37 05:37 06:58 WBC 12.3 H RBC 2.67 L Hgb 7.1 L Hct 22.4 L MCV MCH 27 L MCHC RDW 17.5 H Plt Count Lymph % (Auto) [place] % (Auto) Eos % (Auto) Lymph # [place] # Eos # Seg Neutrophils % Seg Neutrophils # PT INR POC ABG pH POC ABG pCO2 POC ABG pO2 VBG pH Sodium Potassium Chloride Carbon Dioxide BUN 42 H Creatinine Glucose 127 H POC Glucose 152 H Calcium Magnesium AST ALT Alkaline Phosphatase Total Creatine Kinase NT-Pro-B Natriuret Pep Albumin Urine WBC (Auto) Crossmatch 12/21/18 12/21/18 12/22/18 12:06 17:43 00:11 WBC RBC Hgb Hct MCV MCH MCHC RDW Plt Count Lymph % (Auto) [place] % (Auto) Eos % (Auto) Lymph # [place] # Eos # Seg Neutrophils % Seg Neutrophils # PT INR POC ABG pH POC ABG pCO2 POC ABG pO2 VBG pH Sodium Potassium Chloride Carbon Dioxide BUN Creatinine Glucose POC Glucose 140 H 122 H 128 H Calcium Magnesium AST ALT Alkaline Phosphatase Total Creatine Kinase NT-Pro-B Natriuret Pep Albumin Urine WBC (Auto) Crossmatch 12/22/18 12/22/18 12/22/18 05:42 05:42 06:35 WBC 12.8 H RBC 2.82 L Hgb 7.5 L Hct 23.4 L MCV 83 L MCH 27 L MCHC RDW 17.2 H Plt Count Lymph % (Auto) [place] % (Auto) Eos % (Auto) Lymph # [place] # Eos # Seg Neutrophils % Seg Neutrophils # PT INR POC ABG pH POC ABG pCO2 POC ABG pO2 VBG pH Sodium Potassium Chloride Carbon Dioxide BUN 48 H Creatinine Glucose 115 H POC Glucose 120 H Calcium Magnesium AST ALT Alkaline Phosphatase Total Creatine Kinase NT-Pro-B Natriuret Pep Albumin Urine WBC (Auto) Crossmatch 12/22/18 12/22/18 12/23/18 11:30 18:30 00:02 WBC RBC Hgb Hct MCV MCH MCHC RDW Plt Count Lymph % (Auto) [place] % (Auto) Eos % (Auto) Lymph # [place] # Eos # Seg Neutrophils % Seg Neutrophils # PT INR POC ABG pH POC ABG pCO2 POC ABG pO2 VBG pH Sodium Potassium Chloride Carbon Dioxide BUN Creatinine Glucose POC Glucose 151 H 124 H 169 H Calcium Magnesium AST ALT Alkaline Phosphatase Total Creatine Kinase NT-Pro-B Natriuret Pep Albumin Urine WBC (Auto) Crossmatch 12/23/18 12/23/18 12/23/18 00:51 05:30 06:09 WBC RBC 2.91 L Hgb 7.7 L Hct 24.3 L MCV 83 L MCH 26 L MCHC RDW 17.4 H Plt Count Lymph % (Auto) [place] % (Auto) 12.3 H Eos % (Auto) Lymph # [place] # 1.4 H Eos # Seg Neutrophils % 70.7 H Seg Neutrophils # 7.8 H PT INR POC ABG pH POC ABG pCO2 POC ABG pO2 VBG pH Sodium Potassium Chloride Carbon Dioxide BUN 58 H Creatinine Glucose 121 H POC Glucose 146 H Calcium 7.8 L Magnesium AST ALT Alkaline Phosphatase Total Creatine Kinase NT-Pro-B Natriuret Pep Albumin Urine WBC (Auto) Crossmatch 12/23/18 12/23/18 12/24/18 11:34 17:36 00:24 WBC RBC Hgb Hct MCV MCH MCHC RDW Plt Count Lymph % (Auto) [place] % (Auto) Eos % (Auto) Lymph # [place] # Eos # Seg Neutrophils % Seg Neutrophils # PT INR POC ABG pH POC ABG pCO2 POC ABG pO2 VBG pH Sodium Potassium Chloride Carbon Dioxide BUN Creatinine Glucose POC Glucose 153 H 121 H 144 H Calcium Magnesium AST ALT Alkaline Phosphatase Total Creatine Kinase NT-Pro-B Natriuret Pep Albumin Urine WBC (Auto) Crossmatch 12/24/18 12/24/18 12/24/18 05:59 05:59 06:21 WBC RBC 2.41 L Hgb 6.5 L Hct 20.4 L MCV MCH 27 L MCHC RDW 17.8 H Plt Count Lymph % (Auto) [place] % (Auto) Eos % (Auto) Lymph # [place] # Eos # Seg Neutrophils % Seg Neutrophils # PT INR POC ABG pH POC ABG pCO2 POC ABG pO2 VBG pH Sodium Potassium 5.2 H Chloride Carbon Dioxide BUN 52 H Creatinine Glucose 114 H POC Glucose 140 H Calcium Magnesium AST ALT Alkaline Phosphatase Total Creatine Kinase NT-Pro-B Natriuret Pep Albumin Urine WBC (Auto) Crossmatch 12/24/18 12/24/18 12/24/18 10:27 11:49 18:05 WBC RBC Hgb Hct MCV MCH MCHC RDW Plt Count Lymph % (Auto) [place] % (Auto) Eos % (Auto) Lymph # [place] # Eos # Seg Neutrophils % Seg Neutrophils # PT INR POC ABG pH POC ABG pCO2 POC ABG pO2 VBG pH Sodium Potassium Chloride Carbon Dioxide BUN Creatinine Glucose POC Glucose 146 H 139 H Calcium Magnesium AST ALT Alkaline Phosphatase Total Creatine Kinase NT-Pro-B Natriuret Pep Albumin Urine WBC (Auto) Crossmatch See Detail 12/25/18 12/25/18 12/25/18 00:14 05:50 05:54 WBC RBC Hgb 7.9 L Hct 24.0 L MCV MCH MCHC RDW Plt Count Lymph % (Auto) [place] % (Auto) Eos % (Auto) Lymph # [place] # Eos # Seg Neutrophils % Seg Neutrophils # PT INR POC ABG pH POC ABG pCO2 POC ABG pO2 VBG pH Sodium Potassium Chloride Carbon Dioxide BUN Creatinine Glucose POC Glucose 160 H 137 H Calcium Magnesium AST ALT Alkaline Phosphatase Total Creatine Kinase NT-Pro-B Natriuret Pep Albumin Urine WBC (Auto) Crossmatch 12/25/18 11:39 WBC RBC Hgb Hct MCV MCH MCHC RDW Plt Count Lymph % (Auto) [place] % (Auto) Eos % (Auto) Lymph # [place] # Eos # Seg Neutrophils % Seg Neutrophils # PT INR POC ABG pH POC ABG pCO2 POC ABG pO2 VBG pH Sodium Potassium Chloride Carbon Dioxide BUN Creatinine Glucose POC Glucose 137 H Calcium Magnesium AST ALT Alkaline Phosphatase Total Creatine Kinase NT-Pro-B Natriuret Pep Albumin Urine WBC (Auto) Crossmatch Allied health notes reviewed: nursing
--- NOTE | 2018-12-25 14:51 | Progress Note ---
Assessment and Plan Assessment and plan: 68 YO Male Intermediate Facility Resident as [facility] with HTN, CVA, Obstructive Uropathy, Diastolic CHF, Contracture, Sacral Decubitus Ulcers, PR, DM, OA, Seizure Disorder, COPD, Dementia, BPH presents to ED for evaluation. Pt is stuporous and unable to provide history. Pt history taken from ED Staff, EMS, and SNF Staff. As per staff, the patient was found to have respiratory distress upon evaluation. Pt found to have pulse oximetry in the 80's. EMS notified and patient subsequently transported to [facility] for further care and evaluation. Patient seen and evaluated in ED and found to have UTI, Sepsis, Encephalopathy as well as Acute Hypoxemic Respiratory Failure. patient has had a prolonged course, had completed antibiotics, was awaiting placement in isolation bed. hopwever he started having fever past few days, ID reconsulted and started Cefepime and Vancomycin 12/22/18 Physicians had Extensive discussion with family about patients poor prognosis surgery consulted, did debridement at bedside ID following, Continue isolation precautions Chaudhary placed by Urology. Please do not remove Poor to grim prognosis per ALL CONSULTANTS And should consider Hospice. FAMILY REFUSING ALL THERAPEUTIC OFFERS INCLUDING AMPUTATION Risk of continued ABX RESISTANCE DISCUSSED EXTENSIVELY WITH THE FAMILY 12/24- Low grade fever- expected. 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 He needs to be on contact isolation. This cannot be cured with antibiotics. recommend palliative car e/comfort care or hospice, family are not interested in that option. Completed daptomycin for 6 weeks completed 12/16/2018 patient often refusing treatment some times Sacral pressure ulcer -infected. POA Debridement done by Dr Man Amputation recommended and the daughter refused Hyperkalemia: Give additional kayaxlate, will repeat Respiratory failure Supplemental oxygen, nebulizer therapy, mgt per pulmonology ANEMIA of chronic disease Transfused total 2 units PRBC. gave additional 1 unit for total of 3 due to gradual decline of H/H TO 6.4 ON 12/24 Transfuse as necessary Seizure Continue current therapy, seizure precautions. Severe Protein calorie Malnutrition -Continue supportive care by Wood Grainer BPH Continue Chaudhary catherter Dementia supportive care Hyperkalemia. Resolved after kayexalate and Calcium Gluconate 1 g iv Fever repeat blood cultures Re-consulted ID Physician Started on Cefepime and Vancomycin on 12/22/18 Poor Prognosis Disposition; pending SNF placement. Multiple debridements done again 12/19/18 DVT prophylaxis Prophylactic lovenox Patients prognosis remains grave, he unfortunately is developing recurrent resistance to medications. This has been discussed in detail with the patient and daughter History Interval history: Patient seen and examined, no clinical change in condition, per nursing staff, patient has been refusing treatment on some days and other days only accepting a few treatment Hospitalist Physical - Physical exam Narrative exam: Gen: Not in acute distress. lying in bed, lethargic Head exam is unremarkable. No scleral icterus . Neck is without jugular venous distension, thyromegaly, or carotid bruits. Lungs are Diminished to auscultation. Cardiac exam reveals regular rate and Rhythm. First and second heart sounds normal. No murmurs, rubs or gallops. Abdominal exam reveals non tender, not distended,normal bowel sounds, no masses, Extremities contracted extremities. 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 - Constitutional Vitals: Temp Pulse Resp BP Pulse Ox 98.6 F 105 H 20 133/77 96 12/25/18 07:26 12/25/18 09:22 12/25/18 07:26 12/25/18 09:22 12/25/18 07:26 General appearance: Present: no acute distress Results - Labs CBC & Chem 7: 12/25/18 05:50 12/24/18 05:59 Labs: Laboratory Last Values WBC 10.4 K/mm3 (4.5-11.0) 12/24/18 05:59 RBC 2.41 M/mm3 (3.65-5.03) L 12/24/18 05:59 Hgb 7.9 gm/dl (11.8-15.2) L 12/25/18 05:50 Hct 24.0 % (35.5-45.6) L 12/25/18 05:50 MCV 85 fl (84-94) 12/24/18 05:59 MCH 27 pg (28-32) L 12/24/18 05:59 MCHC 32 % (32-34) 12/24/18 05:59 RDW 17.8 % (13.2-15.2) H 12/24/18 05:59 Plt Count 399 K/mm3 (140-440) 12/24/18 05:59 Lymph % (Auto) 13.4 % (13.4-35.0) 12/23/18 00:51 Holt % (Auto) 12.3 % (0.0-7.3) H 12/23/18 00:51 Eos % (Auto) 3.0 % (0.0-4.3) 12/23/18 00:51 Baso % (Auto) 0.6 % (0.0-1.8) 12/23/18 00:51 Lymph # 1.5 K/mm3 (1.2-5.4) 12/23/18 00:51 Holt # 1.4 K/mm3 (0.0-0.8) H 12/23/18 00:51 Eos # 0.3 K/mm3 (0.0-0.4) 12/23/18 00:51 Baso # 0.1 K/mm3 (0.0-0.1) 12/23/18 00:51 Seg Neutrophils % 70.7 % (40.0-70.0) H 12/23/18 00:51 Seg Neutrophils # 7.8 K/mm3 (1.8-7.7) H 12/23/18 00:51 PT 16.3 Sec. (12.2-14.9) H 11/01/18 14:50 INR 1.35 (0.87-1.13) H 11/01/18 14:50 POC ABG pH 7.494 (7.35-7.45) H 11/01/18 15:27 POC ABG pCO2 34.5 (35-45) L 11/01/18 15:27 POC ABG pO2 139 (80-105) H 11/01/18 15:27 POC ABG HCO3 26.5 (22-26 mml/L) 11/01/18 15:27 POC ABG Total CO2 28 (23-27mmol/L) 11/01/18 15:27 POC ABG O2 Sat 99 11/01/18 15:27 POC ABG Base Excess 3 ((-2) - (+3)mmol/L) 11/01/18 15:27 VBG pH 7.499 (7.320-7.420) H 11/01/18 14:50 50 % 11/01/18 15:27 Sodium 138 mmol/L (137-145) 12/24/18 05:59 Potassium 5.2 mmol/L (3.6-5.0) H 12/24/18 05:59 Chloride 103.1 mmol/L (98-107) 12/24/18 05:59 Carbon Dioxide 22 mmol/L (22-30) 12/24/18 05:59 18 mmol/L 12/24/18 05:59 BUN 52 mg/dL (9-20) H 12/24/18 05:59 1.0 mg/dL (0.8-1.5) 12/24/18 05:59 Estimated GFR > 60 ml/min 12/24/18 05:59 52 % 12/24/18 05:59 Glucose 114 mg/dL (75-100) H 12/24/18 05:59 POC Glucose 137 (70-105) H 12/25/18 11:39 Lactic Acid 1.80 mmol/L (0.7-2.0) 11/01/18 14:50 Calcium 8.7 mg/dL (8.4-10.2) 12/24/18 05:59 Phosphorus 2.90 mg/dL (2.5-4.5) 11/22/18 09:43 Magnesium 2.50 mg/dL (1.7-2.3) H 12/06/18 20:57 0.20 mg/dL (0.1-1.2) 12/17/18 05:01 AST 97 units/L (5-40) H 12/17/18 05:01 ALT 99 units/L (7-56) H 12/17/18 05:01 279 units/L (35-129) H 12/17/18 05:01 50 units/L (55-170) L 12/16/18 00:27 NT-Pro-B Natriuret Pep 6776 pg/mL (0-900) H 11/01/18 14:50 7.7 g/dL (6.3-8.2) 12/17/18 05:01 1.8 g/dL (3.9-5) L 12/17/18 05:01 0.3 % 12/17/18 05:01 14 units/L (13-60) 11/25/18 15:07 Yellow (Yellow) 11/01/18 15:57 Turbid (Clear) 11/01/18 15:57 6.0 (5.0-7.0) 11/01/18 15:57 Ur Specific [place] 1.016 (1.003-1.030) 11/01/18 15:57 100 mg/dl mg/dL (Negative) 11/01/18 15:57 Neg mg/dL (Negative) 11/01/18 15:57 Neg mg/dL (Negative) 11/01/18 15:57 Neg (Negative) 11/01/18 15:57 Neg (Negative) 11/01/18 15:57 Neg (Negative) 11/01/18 15:57 < 2.0 mg/dL (<2.0) 11/01/18 15:57 Ur Leukocyte Esterase Mod (Negative) 11/01/18 15:57 > 182.0 /HPF (0.0-6.0) H 11/01/18 15:57 40.0 /HPF (0.0-6.0) 11/01/18 15:57 U Epithel Cells (Auto) 8.0 /HPF (0-13.0) 11/01/18 15:57 3+ /HPF 11/01/18 15:57 3+ /HPF 11/01/18 15:57 Random Vancomycin 13.9 ug/mL (0-40.0) 11/02/18 05:05 Blood Type O POSITIVE 12/24/18 10:27 Antibody Screen Negative 12/24/18 10:27 Crossmatch See Detail 12/24/18 10:27 Active Medications - Current Medications Current Medications: Generic Name Dose Route Start Last Admin Trade Name Freq PRN Reason Stop Dose Admin Acetaminophen 650 mg 12/11/18 15:21 12/23/18 21:45 Tylenol FEEDTUBE 650 mg Q6H PRN Administration Pain, Mild (1-3) Albuterol 2.5 mg 11/01/18 17:15 Proventil IH Q3HRT PRN Shortness Of Breath Lipase/Protease/Amylase 1 each 12/23/18 16:23 Pancreaze 10,500 Unit FEEDTUBE PRN PRN For Clogged Feeding Tube Ascorbic Acid 500 mg 11/01/18 22:00 12/25/18 09:20 Vitamin C FEEDTUBE 500 mg BID NORA Administration Atorvastatin Calcium 40 mg 11/01/18 22:00 12/24/18 21:28 Lipitor FEEDTUBE 40 mg QHS NORA Administration Carvedilol 6.25 mg 11/08/18 13:00 12/25/18 09:21 Coreg PO 6.25 mg BID NORA Administration Enoxaparin Sodium 40 mg 11/02/18 10:00 12/25/18 09:20 Lovenox SUB-Q 40 mg QDAY@1000 NORA Administration Hydralazine HCl 10 mg 11/25/18 22:00 12/25/18 09:22 Apresoline PO 10 mg Q12HR NORA Administration Dextrose 1,000 mls @ 75 mls/hr 12/16/18 09:30 12/24/18 22:55 D5w IV 75 mls/hr DIRECT NORA Administration Cefepime HCl 2 gm in 100 mls @ 200 mls/hr 12/22/18 15:00 12/25/18 09:22 Maxipime/Ns 2 Gm/100 Ml IV Not Given Q12HR [facility] Protocol Levetiracetam 500 mg 11/01/18 22:00 12/25/18 09:17 Keppra FEEDTUBE 500 mg BID NORA Administration Morphine Sulfate 2 mg 11/01/18 17:15 12/23/18 08:54 Morphine IV 2 mg Q4H PRN Administration Pain, Moderate (4-6) Multivitamins 5 ml 11/02/18 10:00 12/25/18 09:20 Centrum Liq FEEDTUBE 5 ml QDAY NORA Administration Polyethylene Glycol 17 gm 12/10/18 15:00 12/25/18 09:23 Miralax 3350 FEEDTUBE Not Given QDAY NORA Senna 8.6 mg 12/10/18 14:56 Senokot FEEDTUBE Q12H PRN Laxative Effect Simple Syrup 15 ml 12/23/18 16:23 Simple Syrup FEEDTUBE PRN PRN Hypoglycemia Simple Syrup 30 ml 12/23/18 16:23 Simple Syrup FEEDTUBE PRN PRN Hypoglycemia Sodium Bicarbonate 325 mg 12/23/18 16:23 Sodium Bicarbonate FEEDTUBE PRN PRN For Clogged Feeding Tube Sodium Biphosphate/Sodium Phosphate 133 ml 12/10/18 14:55 [place] QDAY PRN Bowel Movement Sodium Chloride 10 ml 11/01/18 22:00 12/25/18 09:23 Sodium Chloride Flush Syringe 10 Ml IV Not Given BID NORA Sodium Chloride 10 ml 11/01/18 17:15 11/23/18 04:05 Sodium Chloride Flush Syringe 10 Ml IV 10 ml PRN PRN Administration LINE FLUSH Zinc Sulfate 220 mg 11/02/18 10:00 12/25/18 09:21 Zinc Sulfate PO 220 mg DAILY NORA Administration Nutrition/Malnutrition Assess - Dietary Evaluation Nutrition/Malnutrition Findings: Nutrition Notes Start: 11/04/18 16:00 Freq: Status: Active Protocol: Document 12/23/18 16:16 OH (Rec: 12/23/18 16:23 OH [id number]) Nutrition Notes Initial or Follow up Brief Note Current Diagnosis COPD,Diabetes,Sepsis, Hypertension,Heart Failure, Stroke Other Pertinent Diagnosis Infected sacral decubitus, Dementia, BPH, UTI Current Diet TF - Glucerna 1.2 at 70ml/hr + Mario BID Labs/Tests Reviewed Pertinent Medications Reviewed Height 5 ft 8 in Weight 62.1 kg [place] Body Weight (kg) 70.00 BMI 20.8 Subjective/Other Information Pt. lying in bed with glucerna 1.2 infusing @ 70 mL/hr. Per RN pt tolerating TF w/o n/v/ sputum. Pt. has order for Mario but RN states he has none in his pt cubby. Will f/u to ensure providing as ordered. Percent of energy/protein needs met: 100/100 Burn Absent Trauma Absent Is patient on ventilator? No Is Patient Ambulatory and/or Out of Bed No REE-([facility]-confined to bed) 1638.480 Kcal/Kg value to use for calculation 34 Approximate Energy Requirements Using 2111 kcal/Kg Calculation Used for Recommendations Kcal/kg Additional Notes Pro needs 1.5-2g/k-124g/ day Fluid needs 1ml/kcal Nutrition Intervention Nutrition Support: Glucerna 1.2 at 70ml/hr Water flush of 200 mls q 4 hrs until hypernatremia resolves. Water flush of 100 mls q 4 hrs once hypernatremia resolves. Kcal 2,016 Protein (gm) 101 Carbohydrates (gm) 192 Fat (gm) 101 Fluid (mL) 1,352 Add Supplement/Snack (indicate name/kcal Mario BID /protein ) Provides kCal: 190 Provides Protein (gm) 5 Goal #1 TF tolerance Goal #2 TF to continue to meet at least 75% of calorie and protein needs Follow-Up By: 12/26/18 Additional Comments Follow for TF tolerance, Mario administration - Attestation Statement I have reviewed and agreed w/ Malnutrition eval & tx plan: Yes
[2018-12-25] MEDS: D5W 1,000 ML IV SCH (23:24)
--- NOTE | 2018-12-26 08:46 | Progress Note ---
Assessment and Plan Cultures: Blood culture 10/01/2018 MRSA 2 of 4. Blood culture 10/03/2018 MRSA Blood culture 10/08/2018 no growth Blood culture 10/11/2018 no growth Blood culture 10/21/2018 no growth Blood culture 11/01/2018 Staph haemolyticus 2 of 4 bottles, resistent to methicillin and MRSA 1 of 4 bottles Blood culture 11/04/2018 no growth Blood culture 12/21/2018 no growth Assessment: 67 y/o male with history of HTN, CVA, Obstructive Uropathy, Contracture, Multiple Decubitus Ulcers, UT, DM, OA, Seizure Disorder, COPD, Dementia, Debility, BPH, well known to ID due to multiple admissions secondary to ducubitus ulcers infections and recurrent bacteremia, last time admitted on 10/02/2018 found with MRSA bacteremia jessica from decubitus ulcers mainly active large left trochanteric with bone exposure and sacral with bone exposure. Patient's infection was deemed incurable and hospice was recommended. Patient wa s discharged back to [facility] on IV vancomycin 1 gm every 48 hours for total 6 weeks ending 11/12/2018 via neck tunneled cath. Patient was readmitted on due to AMS, worsening SOB. Patient is lethargic and unable to provide history. At the [facility] he was found to have respiratory distress upon evaluation the morning of admission,pulse oximetry in the 80's: 1) New Fever: Low grade fever continuing. Repeat blood cultures show no growth. Left tunneled PICC now nonfunctioning. Central venous catheter removed by vascular. Now peripheral IV access. Last dose of Cefepime today, completed antibiotic course. 2) Severe Sepsis: Resolved. 3) Staph haemolyticus and MRSA bacteremia with recent MRSA bacteremia: Blood culture 11/01/2018 Staph haemolyticus 2 of 4 bottles and MRSA 1 of 4. Source likely multiple decubitus ulcers or Neck IV central line. Patient is failing vancomycin. He has a tunneled neck cath. Recent TTE negative for vegetations. Antibiotic course of Daptomycin completed. 4) Recent septic shock due to polymicrobial bacteremia ESBL and carbapenem resis tant E coli, MDR Proteus, Strep and E faecalis on 07/29/2018 probably from multiple infected decubitus ulcers and less likely UTI. Repeat blood cultures 07/31/2018 showed same MDR E coli 1 of 4 bottles then 08/06/2018 blood cultures showed no growth. Patient was treated with Vabomere for 14 days. 5) Multiple infected decubitus ulcers: His prognosis has been poor and hospice has been recommended several times in the past but family has declined. declined. His wounds are not curable considering his contractures, bed bound status and poor nutritional status. There was also suspicion of septic ar thritis of left hip from decubitus ulcer. S/p debridement of multiple pressure ulcerations on 11/07/2018- stage 4 left hip pressure ulceration was surgically excisionally debrided of necrotic bone, stage 3 sacral, right ankle and left heel pressure ulcers were then surgically, excisionally debrided of necrotic SQ fat, stage 4 right heel, left lateral heel and right lateral leg ulcerations were surgically, excisionally debrided of necrotic SQ tissue, muscle and fascia. Dr Man recommended bilateral AKA, patient and daughter refused. Dr Man recommended Orthopedic consultation for possible left hip disarticulation as his left hip joint is crumbling and has profuse purulent drainage. 6) Recurrent UTI: bright exchanged every 30 days per nursing 7) Acute encephalopathy: multifactorial. 8) Acute resp failure: On Recommendations: Continue Cefepime 2 gms IV every 12 hours- last dose today Monitor fevers Needs to be hospice Grim prognosis. Jacquie Jean Baptiste NP [facility] M: [phone] O:[phone] Subjective Date of service: 12/26/18 Principal diagnosis: Severe Sepsis; Ac. Hypoxemic Resp failure; Anemia; Seizure; UTI; BPH Interval history: Patient seen and examined. Awake. Alert. No acute distress reported. + low grade fevers continuing. Objective - Exam Narrative Exam: General appearance: Awake. Alert. No acute distress Eyes: anicteric sclerae, moist conjunctivae; no lid-lag; PERRLA HENT: Atraumatic; oropharynx limited Neck: Trachea midline; supple, no thyromegaly or lymphadenopathy Lungs: CTA CV: RRR no murmur Abdomen: Soft, non-tender Extremities: marked legs contractions, multiple decubitus ulcers covered with dressings. Right leg dressing with serosanguinous drainage. Skin: multiple skin tears Psych: Agitated. Lines: PIV - Constitutional Vitals: Vital Signs Temp Pulse Resp BP Pulse Ox 97.9 F 87 18 105/54 96 12/26/18 07:34 12/26/18 07:34 12/26/18 07:34 12/26/18 07:34 12/26/18 07:34 Temperature -Last 24 Hours Temperature 97.9 F Temperature 98.6 F Temperature 100.8 F Temperature 99.3 F - Labs CBC & Chem 7: 12/25/18 05:50 12/24/18 05:59 Labs: Abnormal lab results 12/25/18 12/25/18 12/26/18 Range/Units 11:39 16:56 00:03 POC Glucose 137 H 138 H 120 H (70-105) 12/26/18 Range/Units 06:35 POC Glucose 134 H (70-105)
[2018-12-26] MEDS: LOVENOX SUB-Q SCH (09:47)
[2018-12-26] MEDS: SODIUM CHLORIDE FLUSH SYRINGE 10 ML IV SCH ×2 (09:47→23:08)
[2018-12-26] MEDS: ZINC SULFATE PO SCH (09:47)
[2018-12-26] MEDS: MIRALAX 3350 FEEDTUBE SCH (09:47)
[2018-12-26] MEDS: Centrum Liq FEEDTUBE SCH (09:47)
[2018-12-26] MEDS: COREG PO SCH ×2 (09:48→23:02)
[2018-12-26] MEDS: MAXIPIME/NS 2 GM/100 ML 2 GM/100 ML BAG IV SCH ×2 (09:48→22:58)
[2018-12-26] MEDS: VITAMIN C FEEDTUBE SCH ×2 (09:48→23:01)
[2018-12-26] MEDS: KEPPRA FEEDTUBE SCH ×2 (09:48→23:00)
[2018-12-26] MEDS: APRESOLINE PO SCH ×2 (09:49→23:08)
--- NOTE | 2018-12-26 13:13 | Progress Note ---
Assessment and Plan Severe Sepsis Acute Hypoxemic Respiratory failure Anemia of chronic disease Seizure UTI (urinary tract infection) BPH Dementia sacral pressure ulcer -infected. POA - continue prn supplemental oxygen as needed to keep O2 sat's > 90% - continue bronchodilators with pulmonary hygiene per RT (stopped scheduled treatments) - continue aspiration precautions - complete antibiotics per ID rec's (On Daptomycin) - prn BIPAP for increased work of breathing - prn CXR's - continue Coreg re: SVT - continue AED's for seizure control (Keppra) - continue fall precautions & neurochecks - enteral nutrition as tolerated - continue wound care per WCT - continue bright catheter re: Obstructive Uropathy - GI & VTE prophylaxis - continue mobility protocol for pressure ulcer prophylaxis - continue other care per attending / other consultants ..... discharge planning ongoing concurrently ...... remains Full CODE ... re-evaluate in am & prn Subjective Date of service: 12/26/18 Principal diagnosis: Severe Sepsis; Ac. Hypoxemic Resp failure; Anemia; Seizure; UTI; BPH Interval history: Patient is seen today for: Severe Sepsis; Acute Hypoxemic Respiratory failure; Anemia of chronic disease; Seizure; UTI (urinary tract infection); BPH; Dementia; sacral pressure ulcer -infected. POA Seen and examined at bedside; 24-hour events reviewed; nursing and respiratory care staff consulted; no adverse overnight events reported to me; resting peacefully in bed; "i'm ok"; denies acute chest pains or palpitations Objective Vital Signs - 12hr 12/26/18 12/26/18 02:12 07:34 Temperature 98.6 F 97.9 F Pulse Rate 89 87 Respiratory 18 18 Rate Blood Pressure 96/50 105/54 O2 Sat by Pulse 96 96 Oximetry Constitutional: no acute distress, alert, other (elderly looking AAM, normocephalic with mildly increased resp effort at rest) Eyes: non-icteric ENT: oropharynx moist Neck: no lymphadenopathy, no JVD, other (mild stiffness / contracture) Effort: normal Ascultation: Bilateral: clear, diminished breath sounds Percussion: Bilateral: not dull Cardiovascular: regular rate and rhythm Gastrointestinal: normoactive bowel sounds, soft, non-tender, non-distended Integumentary: other (Patient has pressure ulcer at multiple areas, including sacral area.) Extremities: no cyanosis, no edema, pulses normal, other (Patient has pressure ulcer at multiple areas, including sacral area.) Neurologic: non-focal exam, pupils equal and round, CN II-XII normal, other (+ contractures) Psychiatric: mood appropriate, affect normal CBC and BMP: 12/27/18 04:23 12/27/18 04:23 ABG, PT/INR, D-dimer: ABG POC ABG pH 7.494 (7.35-7.45) H 11/01/18 15:27 POC ABG pCO2 34.5 (35-45) L 11/01/18 15:27 POC ABG pO2 139 (80-105) H 11/01/18 15:27 POC ABG HCO3 26.5 (22-26 mml/L) 11/01/18 15:27 POC ABG Total CO2 28 (23-27mmol/L) 11/01/18 15:27 POC ABG O2 Sat 99 11/01/18 15:27 PT/INR, D-dimer PT 16.3 Sec. (12.2-14.9) H 11/01/18 14:50 INR 1.35 (0.87-1.13) H 11/01/18 14:50 Abnormal lab findings: Abnormal Labs 11/01/18 11/01/18 11/01/18 14:50 14:50 14:50 WBC 15.3 H RBC 2.76 L Hgb 7.9 L Hct 23.5 L MCV MCH MCHC RDW 18.3 H Plt Count 567 H Lymph % (Auto) 6.5 L [place] % (Auto) 8.5 H Eos % (Auto) Lymph # 1.0 L [place] # 1.3 H Eos # Seg Neutrophils % 83.4 H Seg Neutrophils # 12.7 H PT 16.3 H INR 1.35 H POC ABG pH POC ABG pCO2 POC ABG pO2 VBG pH Sodium Potassium Chloride Carbon Dioxide BUN 49 H Creatinine Glucose 132 H POC Glucose Calcium Magnesium AST 90 H ALT 77 H Alkaline Phosphatase 350 H Total Creatine Kinase NT-Pro-B Natriuret Pep Albumin 1.6 L Urine WBC (Auto) Crossmatch 11/01/18 11/01/18 11/01/18 14:50 14:50 15:27 WBC RBC Hgb Hct MCV MCH MCHC RDW Plt Count Lymph % (Auto) [place] % (Auto) Eos % (Auto) Lymph # [place] # Eos # Seg Neutrophils % Seg Neutrophils # PT INR POC ABG pH 7.494 H POC ABG pCO2 34.5 L POC ABG pO2 139 H VBG pH 7.499 H Sodium Potassium Chloride Carbon Dioxide BUN Creatinine Glucose POC Glucose Calcium Magnesium AST ALT Alkaline Phosphatase Total Creatine Kinase NT-Pro-B Natriuret Pep 6776 H Albumin Urine WBC (Auto) Crossmatch 11/01/18 11/03/18 11/03/18 15:57 03:41 03:41 WBC 12.8 H RBC 2.55 L Hgb 6.9 L Hct 22.2 L MCV MCH 27 L MCHC 31 L RDW 17.9 H Plt Count 519 H Lymph % (Auto) [place] % (Auto) Eos % (Auto) Lymph # [place] # Eos # Seg Neutrophils % Seg Neutrophils # PT INR POC ABG pH POC ABG pCO2 POC ABG pO2 VBG pH Sodium 147 H Potassium Chloride 110.3 H Carbon Dioxide BUN 55 H Creatinine Glucose POC Glucose Calcium Magnesium AST ALT Alkaline Phosphatase Total Creatine Kinase NT-Pro-B Natriuret Pep Albumin Urine WBC (Auto) > 182.0 H Crossmatch 11/03/18 11/04/18 11/04/18 12:51 05:12 05:12 WBC 11.5 H RBC 2.94 L Hgb 8.3 L Hct 25.3 L MCV MCH MCHC RDW 17.3 H Plt Count 514 H Lymph % (Auto) [place] % (Auto) Eos % (Auto) Lymph # [place] # Eos # Seg Neutrophils % Seg Neutrophils # PT INR POC ABG pH POC ABG pCO2 POC ABG pO2 VBG pH Sodium 147 H Potassium Chloride 112.4 H Carbon Dioxide BUN 52 H Creatinine Glucose POC Glucose Calcium Magnesium AST ALT Alkaline Phosphatase Total Creatine Kinase NT-Pro-B Natriuret Pep Albumin Urine WBC (Auto) Crossmatch See Detail 11/05/18 11/05/18 11/06/18 04:50 04:50 05:42 WBC RBC 3.03 L 2.80 L Hgb 8.7 L 7.9 L Hct 26.6 L 24.7 L MCV MCH MCHC RDW 17.1 H 17.0 H Plt Count 502 H 478 H Lymph % (Auto) 10.4 L [place] % (Auto) 8.6 H Eos % (Auto) 4.7 H Lymph # 1.0 L [place] # Eos # 0.5 H Seg Neutrophils % 75.6 H Seg Neutrophils # PT INR POC ABG pH POC ABG pCO2 POC ABG pO2 VBG pH Sodium 149 H Potassium Chloride 114.4 H Carbon Dioxide 21 L BUN 50 H Creatinine Glucose 108 H POC Glucose Calcium Magnesium AST ALT Alkaline Phosphatase Total Creatine Kinase NT-Pro-B Natriuret Pep Albumin Urine WBC (Auto) Crossmatch 11/06/18 11/11/18 11/12/18 05:42 18:54 00:22 WBC RBC Hgb Hct MCV MCH MCHC RDW Plt Count Lymph % (Auto) [place] % (Auto) Eos % (Auto) Lymph # [place] # Eos # Seg Neutrophils % Seg Neutrophils # PT INR POC ABG pH POC ABG pCO2 POC ABG pO2 VBG pH Sodium 149 H Potassium Chloride 113.4 H Carbon Dioxide BUN 50 H Creatinine Glucose 121 H POC Glucose 114 H 123 H Calcium Magnesium AST ALT Alkaline Phosphatase Total Creatine Kinase NT-Pro-B Natriuret Pep Albumin Urine WBC (Auto) Crossmatch 11/12/18 11/12/18 11/13/18 06:49 11:35 06:34 WBC RBC Hgb Hct MCV MCH MCHC RDW Plt Count Lymph % (Auto) [place] % (Auto) Eos % (Auto) Lymph # [place] # Eos # Seg Neutrophils % Seg Neutrophils # PT INR POC ABG pH POC ABG pCO2 POC ABG pO2 VBG pH Sodium Potassium Chloride Carbon Dioxide BUN Creatinine Glucose POC Glucose 129 H 123 H 128 H Calcium Magnesium AST ALT Alkaline Phosphatase Total Creatine Kinase NT-Pro-B Natriuret Pep Albumin Urine WBC (Auto) Crossmatch 11/13/18 11/13/18 11/13/18 09:26 09:26 15:13 WBC RBC 3.08 L Hgb 8.6 L Hct 27.3 L MCV MCH MCHC 31 L RDW 18.3 H Plt Count 504 H Lymph % (Auto) 11.7 L [place] % (Auto) 7.5 H Eos % (Auto) 7.0 H Lymph # [place] # Eos # 0.7 H Seg Neutrophils % 72.9 H Seg Neutrophils # PT INR POC ABG pH POC ABG pCO2 POC ABG pO2 VBG pH Sodium 153 H Potassium 6.3 H* 5.8 H Chloride 122.3 H Carbon Dioxide 21 L BUN 38 H Creatinine Glucose 112 H POC Glucose Calcium Magnesium AST ALT Alkaline Phosphatase Total Creatine Kinase NT-Pro-B Natriuret Pep Albumin Urine WBC (Auto) Crossmatch 11/13/18 11/13/18 11/14/18 22:10 23:45 13:17 WBC RBC Hgb Hct MCV MCH MCHC RDW Plt Count Lymph % (Auto) [place] % (Auto) Eos % (Auto) Lymph # [place] # Eos # Seg Neutrophils % Seg Neutrophils # PT INR POC ABG pH POC ABG pCO2 POC ABG pO2 VBG pH Sodium 155 H Potassium 5.3 H Chloride 122.3 H Carbon Dioxide BUN 35 H Creatinine Glucose 113 H POC Glucose 111 H 142 H Calcium Magnesium AST ALT Alkaline Phosphatase Total Creatine Kinase NT-Pro-B Natriuret Pep Albumin Urine WBC (Auto) Crossmatch 11/14/18 11/15/18 11/15/18 19:08 00:31 06:45 WBC RBC Hgb Hct MCV MCH MCHC RDW Plt Count Lymph % (Auto) [place] % (Auto) Eos % (Auto) Lymph # [place] # Eos # Seg Neutrophils % Seg Neutrophils # PT INR POC ABG pH POC ABG pCO2 POC ABG pO2 VBG pH Sodium Potassium Chloride Carbon Dioxide BUN Creatinine Glucose POC Glucose 116 H 125 H 131 H Calcium Magnesium AST ALT Alkaline Phosphatase Total Creatine Kinase NT-Pro-B Natriuret Pep Albumin Urine WBC (Auto) Crossmatch 11/15/18 11/15/18 11/15/18 07:13 07:13 19:03 WBC 13.2 H RBC 2.81 L Hgb 7.8 L Hct 24.5 L MCV MCH MCHC RDW 18.2 H Plt Count 454 H Lymph % (Auto) 9.0 L [place] % (Auto) 7.5 H Eos % (Auto) Lymph # [place] # 1.0 H Eos # 0.5 H Seg Neutrophils % 78.8 H Seg Neutrophils # 10.4 H PT INR POC ABG pH POC ABG pCO2 POC ABG pO2 VBG pH Sodium 149 H Potassium 5.2 H Chloride 117.2 H Carbon Dioxide BUN 38 H Creatinine Glucose 114 H POC Glucose 141 H Calcium Magnesium AST ALT Alkaline Phosphatase Total Creatine Kinase NT-Pro-B Natriuret Pep Albumin Urine WBC (Auto) Crossmatch 11/16/18 11/16/18 11/16/18 01:15 01:15 06:45 WBC RBC Hgb Hct MCV MCH MCHC RDW Plt Count Lymph % (Auto) [place] % (Auto) Eos % (Auto) Lymph # [place] # Eos # Seg Neutrophils % Seg Neutrophils # PT INR POC ABG pH POC ABG pCO2 POC ABG pO2 VBG pH Sodium Potassium 5.3 H Chloride Carbon Dioxide BUN Creatinine Glucose POC Glucose 129 H Calcium Magnesium 2.60 H AST ALT Alkaline Phosphatase Total Creatine Kinase NT-Pro-B Natriuret Pep Albumin Urine WBC (Auto) Crossmatch 11/16/18 11/16/18 11/17/18 13:20 18:02 00:16 WBC RBC Hgb Hct MCV MCH MCHC RDW Plt Count Lymph % (Auto) [place] % (Auto) Eos % (Auto) Lymph # [place] # Eos # Seg Neutrophils % Seg Neutrophils # PT INR POC ABG pH POC ABG pCO2 POC ABG pO2 VBG pH Sodium Potassium Chloride Carbon Dioxide BUN Creatinine Glucose POC Glucose 130 H 127 H 120 H Calcium Magnesium AST ALT Alkaline Phosphatase Total Creatine Kinase NT-Pro-B Natriuret Pep Albumin Urine WBC (Auto) Crossmatch 11/17/18 11/17/18 11/17/18 05:48 08:02 08:02 WBC RBC Hgb 7.5 L Hct 23.5 L MCV MCH MCHC RDW Plt Count Lymph % (Auto) [place] % (Auto) Eos % (Auto) Lymph # [place] # Eos # Seg Neutrophils % Seg Neutrophils # PT INR POC ABG pH POC ABG pCO2 POC ABG pO2 VBG pH Sodium Potassium Chloride 110.1 H Carbon Dioxide 21 L BUN 38 H Creatinine Glucose 121 H POC Glucose 130 H Calcium Magnesium AST ALT Alkaline Phosphatase Total Creatine Kinase NT-Pro-B Natriuret Pep Albumin Urine WBC (Auto) Crossmatch 11/17/18 11/17/18 11/18/18 12:17 16:48 06:00 WBC RBC Hgb Hct MCV MCH MCHC RDW Plt Count Lymph % (Auto) [place] % (Auto) Eos % (Auto) Lymph # [place] # Eos # Seg Neutrophils % Seg Neutrophils # PT INR POC ABG pH POC ABG pCO2 POC ABG pO2 VBG pH Sodium Potassium Chloride Carbon Dioxide BUN Creatinine Glucose POC Glucose 140 H 120 H 137 H Calcium Magnesium AST ALT Alkaline Phosphatase Total Creatine Kinase NT-Pro-B Natriuret Pep Albumin Urine WBC (Auto) Crossmatch 11/19/18 11/19/18 11/19/18 00:20 05:35 06:11 WBC RBC Hgb Hct MCV MCH MCHC RDW Plt Count Lymph % (Auto) [place] % (Auto) Eos % (Auto) Lymph # [place] # Eos # Seg Neutrophils % Seg Neutrophils # PT INR POC ABG pH POC ABG pCO2 POC ABG pO2 VBG pH Sodium Potassium Chloride Carbon Dioxide BUN Creatinine Glucose POC Glucose 111 H 126 H Calcium Magnesium AST ALT Alkaline Phosphatase Total Creatine Kinase 53 L NT-Pro-B Natriuret Pep Albumin Urine WBC (Auto) Crossmatch 11/19/18 11/19/18 11/20/18 11:37 23:43 06:52 WBC RBC Hgb Hct MCV MCH MCHC RDW Plt Count Lymph % (Auto) [place] % (Auto) Eos % (Auto) Lymph # [place] # Eos # Seg Neutrophils % Seg Neutrophils # PT INR POC ABG pH POC ABG pCO2 POC ABG pO2 VBG pH Sodium Potassium Chloride Carbon Dioxide BUN Creatinine Glucose POC Glucose 139 H 145 H 125 H Calcium Magnesium AST ALT Alkaline Phosphatase Total Creatine Kinase NT-Pro-B Natriuret Pep Albumin Urine WBC (Auto) Crossmatch 11/20/18 11/20/18 11/20/18 09:55 09:55 11:49 WBC RBC 3.04 L Hgb 8.4 L Hct 26.1 L MCV MCH MCHC RDW 17.5 H Plt Count Lymph % (Auto) [place] % (Auto) Eos % (Auto) Lymph # [place] # Eos # Seg Neutrophils % Seg Neutrophils # PT INR POC ABG pH POC ABG pCO2 POC ABG pO2 VBG pH Sodium 149 H Potassium Chloride 114.5 H Carbon Dioxide 21 L BUN 35 H Creatinine Glucose 127 H POC Glucose 150 H Calcium Magnesium AST ALT Alkaline Phosphatase Total Creatine Kinase NT-Pro-B Natriuret Pep Albumin Urine WBC (Auto) Crossmatch 11/20/18 11/20/18 11/21/18 18:02 23:49 06:14 WBC RBC Hgb Hct MCV MCH MCHC RDW Plt Count Lymph % (Auto) [place] % (Auto) Eos % (Auto) Lymph # [place] # Eos # Seg Neutrophils % Seg Neutrophils # PT INR POC ABG pH POC ABG pCO2 POC ABG pO2 VBG pH Sodium Potassium Chloride Carbon Dioxide BUN Creatinine Glucose POC Glucose 131 H 137 H 133 H Calcium Magnesium AST ALT Alkaline Phosphatase Total Creatine Kinase NT-Pro-B Natriuret Pep Albumin Urine WBC (Auto) Crossmatch 11/21/18 11/21/18 11/21/18 10:00 12:09 18:04 WBC RBC Hgb Hct MCV MCH MCHC RDW Plt Count Lymph % (Auto) [place] % (Auto) Eos % (Auto) Lymph # [place] # Eos # Seg Neutrophils % Seg Neutrophils # PT INR POC ABG pH POC ABG pCO2 POC ABG pO2 VBG pH Sodium Potassium Chloride 110.6 H Carbon Dioxide BUN 31 H Creatinine Glucose 119 H POC Glucose 116 H 126 H Calcium Magnesium AST ALT Alkaline Phosphatase Total Creatine Kinase NT-Pro-B Natriuret Pep Albumin Urine WBC (Auto) Crossmatch 11/22/18 11/22/18 11/22/18 00:14 05:47 06:23 WBC RBC Hgb Hct MCV MCH MCHC RDW Plt Count Lymph % (Auto) [place] % (Auto) Eos % (Auto) Lymph # [place] # Eos # Seg Neutrophils % Seg Neutrophils # PT INR POC ABG pH POC ABG pCO2 POC ABG pO2 VBG pH Sodium Potassium Chloride 107.6 H Carbon Dioxide BUN 32 H Creatinine 0.7 L Glucose 116 H POC Glucose 122 H 119 H Calcium Magnesium AST ALT Alkaline Phosphatase Total Creatine Kinase NT-Pro-B Natriuret Pep Albumin Urine WBC (Auto) Crossmatch 11/22/18 11/22/18 11/22/18 08:40 12:19 17:39 WBC RBC Hgb Hct MCV MCH MCHC RDW Plt Count Lymph % (Auto) [place] % (Auto) Eos % (Auto) Lymph # [place] # Eos # Seg Neutrophils % Seg Neutrophils # PT INR POC ABG pH POC ABG pCO2 POC ABG pO2 VBG pH Sodium Potassium Chloride Carbon Dioxide BUN Creatinine Glucose POC Glucose 150 H 111 H 108 H Calcium Magnesium AST ALT Alkaline Phosphatase Total Creatine Kinase NT-Pro-B Natriuret Pep Albumin Urine WBC (Auto) Crossmatch 11/23/18 11/23/18 11/23/18 00:36 05:37 05:56 WBC RBC Hgb Hct MCV MCH MCHC RDW Plt Count Lymph % (Auto) [place] % (Auto) Eos % (Auto) Lymph # [place] # Eos # Seg Neutrophils % Seg Neutrophils # PT INR POC ABG pH POC ABG pCO2 POC ABG pO2 VBG pH Sodium 136 L Potassium Chloride Carbon Dioxide BUN 30 H Creatinine 0.7 L Glucose 103 H POC Glucose 125 H 122 H Calcium Magnesium 2.50 H AST ALT Alkaline Phosphatase Total Creatine Kinase NT-Pro-B Natriuret Pep Albumin Urine WBC (Auto) Crossmatch 11/23/18 11/23/18 11/23/18 11:56 17:39 23:40 WBC RBC Hgb Hct MCV MCH MCHC RDW Plt Count Lymph % (Auto) [place] % (Auto) Eos % (Auto) Lymph # [place] # Eos # Seg Neutrophils % Seg Neutrophils # PT INR POC ABG pH POC ABG pCO2 POC ABG pO2 VBG pH Sodium Potassium Chloride Carbon Dioxide BUN Creatinine Glucose POC Glucose 121 H 113 H 117 H Calcium Magnesium AST ALT Alkaline Phosphatase Total Creatine Kinase NT-Pro-B Natriuret Pep Albumin Urine WBC (Auto) Crossmatch 11/24/18 11/24/18 11/24/18 05:13 12:00 18:13 WBC RBC Hgb Hct MCV MCH MCHC RDW Plt Count Lymph % (Auto) [place] % (Auto) Eos % (Auto) Lymph # [place] # Eos # Seg Neutrophils % Seg Neutrophils # PT INR POC ABG pH POC ABG pCO2 POC ABG pO2 VBG pH Sodium Potassium Chloride Carbon Dioxide BUN Creatinine Glucose POC Glucose 143 H 123 H 124 H Calcium Magnesium AST ALT Alkaline Phosphatase Total Creatine Kinase NT-Pro-B Natriuret Pep Albumin Urine WBC (Auto) Crossmatch 11/24/18 11/25/18 11/25/18 23:34 05:25 05:25 WBC RBC 2.48 L Hgb 6.8 L Hct 21.2 L MCV MCH MCHC RDW 17.7 H Plt Count Lymph % (Auto) [place] % (Auto) Eos % (Auto) Lymph # [place] # Eos # Seg Neutrophils % Seg Neutrophils # PT INR POC ABG pH POC ABG pCO2 POC ABG pO2 VBG pH Sodium Potassium Chloride 108.8 H Carbon Dioxide BUN 30 H Creatinine 0.7 L Glucose 112 H POC Glucose 115 H Calcium Magnesium AST ALT Alkaline Phosphatase Total Creatine Kinase NT-Pro-B Natriuret Pep Albumin Urine WBC (Auto) Crossmatch 11/25/18 11/25/18 11/25/18 06:46 11:15 11:28 WBC RBC Hgb 7.4 L Hct 23.0 L MCV MCH MCHC RDW Plt Count Lymph % (Auto) [place] % (Auto) Eos % (Auto) Lymph # [place] # Eos # Seg Neutrophils % Seg Neutrophils # PT INR POC ABG pH POC ABG pCO2 POC ABG pO2 VBG pH Sodium Potassium Chloride Carbon Dioxide BUN Creatinine Glucose POC Glucose 133 H 127 H Calcium Magnesium AST ALT Alkaline Phosphatase Total Creatine Kinase NT-Pro-B Natriuret Pep Albumin Urine WBC (Auto) Crossmatch 11/25/18 11/25/18 11/25/18 15:28 17:32 23:45 WBC RBC Hgb Hct MCV MCH MCHC RDW Plt Count Lymph % (Auto) [place] % (Auto) Eos % (Auto) Lymph # [place] # Eos # Seg Neutrophils % Seg Neutrophils # PT INR POC ABG pH POC ABG pCO2 POC ABG pO2 VBG pH Sodium Potassium Chloride Carbon Dioxide BUN Creatinine Glucose POC Glucose 115 H 130 H Calcium Magnesium AST ALT Alkaline Phosphatase Total Creatine Kinase NT-Pro-B Natriuret Pep Albumin Urine WBC (Auto) Crossmatch See Detail 11/26/18 11/26/18 11/26/18 06:13 06:20 06:20 WBC RBC 2.76 L Hgb 7.7 L Hct 23.4 L MCV MCH MCHC RDW 17.5 H Plt Count Lymph % (Auto) [place] % (Auto) Eos % (Auto) Lymph # [place] # Eos # Seg Neutrophils % Seg Neutrophils # PT INR POC ABG pH POC ABG pCO2 POC ABG pO2 VBG pH Sodium Potassium Chloride 109.9 H Carbon Dioxide BUN 30 H Creatinine 0.6 L Glucose 121 H POC Glucose 129 H Calcium Magnesium AST ALT Alkaline Phosphatase Total Creatine Kinase NT-Pro-B Natriuret Pep Albumin Urine WBC (Auto) Crossmatch 11/26/18 11/26/18 11/27/18 12:06 16:35 06:04 WBC RBC Hgb Hct MCV MCH MCHC RDW Plt Count Lymph % (Auto) [place] % (Auto) Eos % (Auto) Lymph # [place] # Eos # Seg Neutrophils % Seg Neutrophils # PT INR POC ABG pH POC ABG pCO2 POC ABG pO2 VBG pH Sodium Potassium Chloride Carbon Dioxide BUN Creatinine Glucose POC Glucose 139 H 107 H 126 H Calcium Magnesium AST ALT Alkaline Phosphatase Total Creatine Kinase NT-Pro-B Natriuret Pep Albumin Urine WBC (Auto) Crossmatch 11/27/18 11/27/18 11/28/18 13:14 17:47 07:03 WBC RBC Hgb Hct MCV MCH MCHC RDW Plt Count Lymph % (Auto) [place] % (Auto) Eos % (Auto) Lymph # [place] # Eos # Seg Neutrophils % Seg Neutrophils # PT INR POC ABG pH POC ABG pCO2 POC ABG pO2 VBG pH Sodium Potassium Chloride Carbon Dioxide BUN Creatinine Glucose POC Glucose 130 H 115 H 118 H Calcium Magnesium AST ALT Alkaline Phosphatase Total Creatine Kinase NT-Pro-B Natriuret Pep Albumin Urine WBC (Auto) Crossmatch 11/28/18 11/29/18 11/29/18 11:38 00:35 04:56 WBC RBC Hgb Hct MCV MCH MCHC RDW Plt Count Lymph % (Auto) [place] % (Auto) Eos % (Auto) Lymph # [place] # Eos # Seg Neutrophils % Seg Neutrophils # PT INR POC ABG pH POC ABG pCO2 POC ABG pO2 VBG pH Sodium Potassium Chloride Carbon Dioxide BUN Creatinine Glucose POC Glucose 126 H 107 H Calcium Magnesium AST ALT Alkaline Phosphatase Total Creatine Kinase 50 L NT-Pro-B Natriuret Pep Albumin Urine WBC (Auto) Crossmatch 11/29/18 11/29/18 11/29/18 05:49 11:46 18:17 WBC RBC Hgb Hct MCV MCH MCHC RDW Plt Count Lymph % (Auto) [place] % (Auto) Eos % (Auto) Lymph # [place] # Eos # Seg Neutrophils % Seg Neutrophils # PT INR POC ABG pH POC ABG pCO2 POC ABG pO2 VBG pH Sodium Potassium Chloride Carbon Dioxide BUN Creatinine Glucose POC Glucose 128 H 140 H 115 H Calcium Magnesium AST ALT Alkaline Phosphatase Total Creatine Kinase NT-Pro-B Natriuret Pep Albumin Urine WBC (Auto) Crossmatch 11/30/18 11/30/18 11/30/18 00:00 03:30 03:30 WBC RBC 2.97 L Hgb 8.1 L Hct 25.5 L MCV MCH 27 L MCHC RDW 17.7 H Plt Count Lymph % (Auto) 9.2 L [place] % (Auto) 10.0 H Eos % (Auto) 4.6 H Lymph # 1.0 L [place] # 1.1 H Eos # 0.5 H Seg Neutrophils % 75.6 H Seg Neutrophils # 8.4 H PT INR POC ABG pH POC ABG pCO2 POC ABG pO2 VBG pH Sodium Potassium Chloride Carbon Dioxide BUN 31 H Creatinine 0.7 L Glucose POC Glucose 120 H Calcium Magnesium AST ALT Alkaline Phosphatase Total Creatine Kinase NT-Pro-B Natriuret Pep Albumin Urine WBC (Auto) Crossmatch 11/30/18 11/30/18 11/30/18 06:54 11:45 16:59 WBC RBC Hgb Hct MCV MCH MCHC RDW Plt Count Lymph % (Auto) [place] % (Auto) Eos % (Auto) Lymph # [place] # Eos # Seg Neutrophils % Seg Neutrophils # PT INR POC ABG pH POC ABG pCO2 POC ABG pO2 VBG pH Sodium Potassium Chloride Carbon Dioxide BUN Creatinine Glucose POC Glucose 120 H 123 H 111 H Calcium Magnesium AST ALT Alkaline Phosphatase Total Creatine Kinase NT-Pro-B Natriuret Pep Albumin Urine WBC (Auto) Crossmatch 12/01/18 12/01/18 12/01/18 00:20 05:58 11:33 WBC RBC Hgb Hct MCV MCH MCHC RDW Plt Count Lymph % (Auto) [place] % (Auto) Eos % (Auto) Lymph # [place] # Eos # Seg Neutrophils % Seg Neutrophils # PT INR POC ABG pH POC ABG pCO2 POC ABG pO2 VBG pH Sodium Potassium Chloride Carbon Dioxide BUN Creatinine Glucose POC Glucose 113 H 127 H 138 H Calcium Magnesium AST ALT Alkaline Phosphatase Total Creatine Kinase NT-Pro-B Natriuret Pep Albumin Urine WBC (Auto) Crossmatch 12/02/18 12/03/18 12/03/18 00:33 05:07 05:07 WBC RBC 2.93 L Hgb 8.2 L Hct 24.9 L MCV MCH MCHC RDW 17.0 H Plt Count 470 H Lymph % (Auto) 9.3 L [place] % (Auto) 8.6 H Eos % (Auto) 5.4 H Lymph # 0.9 L [place] # Eos # 0.5 H Seg Neutrophils % 75.8 H Seg Neutrophils # PT INR POC ABG pH POC ABG pCO2 POC ABG pO2 VBG pH Sodium Potassium Chloride Carbon Dioxide BUN 30 H Creatinine 0.6 L Glucose 115 H POC Glucose 110 H Calcium Magnesium AST ALT Alkaline Phosphatase Total Creatine Kinase NT-Pro-B Natriuret Pep Albumin Urine WBC (Auto) Crossmatch 12/03/18 12/03/18 12/03/18 05:58 11:49 17:44 WBC RBC Hgb Hct MCV MCH MCHC RDW Plt Count Lymph % (Auto) [place] % (Auto) Eos % (Auto) Lymph # [place] # Eos # Seg Neutrophils % Seg Neutrophils # PT INR POC ABG pH POC ABG pCO2 POC ABG pO2 VBG pH Sodium Potassium Chloride Carbon Dioxide BUN Creatinine Glucose POC Glucose 127 H 138 H 127 H Calcium Magnesium AST ALT Alkaline Phosphatase Total Creatine Kinase NT-Pro-B Natriuret Pep Albumin Urine WBC (Auto) Crossmatch 12/05/18 12/05/18 12/05/18 00:22 05:53 17:18 WBC RBC Hgb Hct MCV MCH MCHC RDW Plt Count Lymph % (Auto) [place] % (Auto) Eos % (Auto) Lymph # [place] # Eos # Seg Neutrophils % Seg Neutrophils # PT INR POC ABG pH POC ABG pCO2 POC ABG pO2 VBG pH Sodium Potassium Chloride Carbon Dioxide BUN Creatinine Glucose POC Glucose 124 H 121 H 112 H Calcium Magnesium AST ALT Alkaline Phosphatase Total Creatine Kinase NT-Pro-B Natriuret Pep Albumin Urine WBC (Auto) Crossmatch 12/06/18 12/06/18 12/06/18 00:07 06:16 11:43 WBC RBC Hgb Hct MCV MCH MCHC RDW Plt Count Lymph % (Auto) [place] % (Auto) Eos % (Auto) Lymph # [place] # Eos # Seg Neutrophils % Seg Neutrophils # PT INR POC ABG pH POC ABG pCO2 POC ABG pO2 VBG pH Sodium Potassium Chloride Carbon Dioxide BUN Creatinine Glucose POC Glucose 111 H 117 H 121 H Calcium Magnesium AST ALT Alkaline Phosphatase Total Creatine Kinase NT-Pro-B Natriuret Pep Albumin Urine WBC (Auto) Crossmatch 12/06/18 12/07/18 12/07/18 20:57 06:41 12:09 WBC RBC Hgb Hct MCV MCH MCHC RDW Plt Count Lymph % (Auto) [place] % (Auto) Eos % (Auto) Lymph # [place] # Eos # Seg Neutrophils % Seg Neutrophils # PT INR POC ABG pH POC ABG pCO2 POC ABG pO2 VBG pH Sodium Potassium Chloride 107.2 H Carbon Dioxide BUN 27 H Creatinine 0.7 L Glucose POC Glucose 128 H 137 H Calcium Magnesium 2.50 H AST ALT Alkaline Phosphatase Total Creatine Kinase NT-Pro-B Natriuret Pep Albumin Urine WBC (Auto) Crossmatch 12/07/18 12/08/18 12/08/18 19:29 05:44 12:27 WBC RBC Hgb Hct MCV MCH MCHC RDW Plt Count Lymph % (Auto) [place] % (Auto) Eos % (Auto) Lymph # [place] # Eos # Seg Neutrophils % Seg Neutrophils # PT INR POC ABG pH POC ABG pCO2 POC ABG pO2 VBG pH Sodium Potassium Chloride Carbon Dioxide BUN Creatinine Glucose POC Glucose 110 H 126 H 130 H Calcium Magnesium AST ALT Alkaline Phosphatase Total Creatine Kinase NT-Pro-B Natriuret Pep Albumin Urine WBC (Auto) Crossmatch 12/08/18 12/09/18 12/09/18 17:44 00:20 06:42 WBC RBC Hgb Hct MCV MCH MCHC RDW Plt Count Lymph % (Auto) [place] % (Auto) Eos % (Auto) Lymph # [place] # Eos # Seg Neutrophils % Seg Neutrophils # PT INR POC ABG pH POC ABG pCO2 POC ABG pO2 VBG pH Sodium Potassium Chloride Carbon Dioxide BUN Creatinine Glucose POC Glucose 113 H 121 H 124 H Calcium Magnesium AST ALT Alkaline Phosphatase Total Creatine Kinase NT-Pro-B Natriuret Pep Albumin Urine WBC (Auto) Crossmatch 12/09/18 12/09/18 12/09/18 12:24 18:41 23:48 WBC RBC Hgb Hct MCV MCH MCHC RDW Plt Count Lymph % (Auto) [place] % (Auto) Eos % (Auto) Lymph # [place] # Eos # Seg Neutrophils % Seg Neutrophils # PT INR POC ABG pH POC ABG pCO2 POC ABG pO2 VBG pH Sodium Potassium Chloride Carbon Dioxide BUN Creatinine Glucose POC Glucose 114 H 109 H 128 H Calcium Magnesium AST ALT Alkaline Phosphatase Total Creatine Kinase NT-Pro-B Natriuret Pep Albumin Urine WBC (Auto) Crossmatch 12/10/18 12/10/18 12/11/18 07:07 11:28 00:24 WBC RBC Hgb Hct MCV MCH MCHC RDW Plt Count Lymph % (Auto) [place] % (Auto) Eos % (Auto) Lymph # [place] # Eos # Seg Neutrophils % Seg Neutrophils # PT INR POC ABG pH POC ABG pCO2 POC ABG pO2 VBG pH Sodium Potassium Chloride Carbon Dioxide BUN Creatinine Glucose POC Glucose 111 H 110 H 112 H Calcium Magnesium AST ALT Alkaline Phosphatase Total Creatine Kinase NT-Pro-B Natriuret Pep Albumin Urine WBC (Auto) Crossmatch 12/11/18 12/11/18 12/11/18 06:44 11:53 18:17 WBC RBC Hgb Hct MCV MCH MCHC RDW Plt Count Lymph % (Auto) [place] % (Auto) Eos % (Auto) Lymph # [place] # Eos # Seg Neutrophils % Seg Neutrophils # PT INR POC ABG pH POC ABG pCO2 POC ABG pO2 VBG pH Sodium Potassium Chloride Carbon Dioxide BUN Creatinine Glucose POC Glucose 111 H 132 H 133 H Calcium Magnesium AST ALT Alkaline Phosphatase Total Creatine Kinase NT-Pro-B Natriuret Pep Albumin Urine WBC (Auto) Crossmatch 12/11/18 12/12/18 12/12/18 23:58 00:05 06:11 WBC RBC 2.85 L Hgb 7.8 L Hct 24.4 L MCV MCH 27 L MCHC RDW 17.4 H Plt Count 459 H Lymph % (Auto) [place] % (Auto) 11.2 H Eos % (Auto) 5.4 H Lymph # [place] # 1.1 H Eos # 0.5 H Seg Neutrophils % Seg Neutrophils # PT INR POC ABG pH POC ABG pCO2 POC ABG pO2 VBG pH Sodium Potassium Chloride Carbon Dioxide BUN Creatinine Glucose POC Glucose 126 H 144 H Calcium Magnesium AST ALT Alkaline Phosphatase Total Creatine Kinase NT-Pro-B Natriuret Pep Albumin Urine WBC (Auto) Crossmatch 12/12/18 12/12/18 12/13/18 11:42 18:36 00:12 WBC RBC Hgb Hct MCV MCH MCHC RDW Plt Count Lymph % (Auto) [place] % (Auto) Eos % (Auto) Lymph # [place] # Eos # Seg Neutrophils % Seg Neutrophils # PT INR POC ABG pH POC ABG pCO2 POC ABG pO2 VBG pH Sodium Potassium Chloride Carbon Dioxide BUN Creatinine Glucose POC Glucose 106 H 117 H 115 H Calcium Magnesium AST ALT Alkaline Phosphatase Total Creatine Kinase NT-Pro-B Natriuret Pep Albumin Urine WBC (Auto) Crossmatch 12/13/18 12/13/18 12/13/18 05:58 11:52 23:57 WBC RBC Hgb Hct MCV MCH MCHC RDW Plt Count Lymph % (Auto) [place] % (Auto) Eos % (Auto) Lymph # [place] # Eos # Seg Neutrophils % Seg Neutrophils # PT INR POC ABG pH POC ABG pCO2 POC ABG pO2 VBG pH Sodium Potassium Chloride Carbon Dioxide BUN Creatinine Glucose POC Glucose 122 H 129 H 125 H Calcium Magnesium AST ALT Alkaline Phosphatase Total Creatine Kinase NT-Pro-B Natriuret Pep Albumin Urine WBC (Auto) Crossmatch 12/14/18 12/14/18 12/14/18 04:44 04:44 05:44 WBC RBC 2.56 L Hgb 7.2 L Hct 22.1 L MCV MCH MCHC RDW 17.8 H Plt Count 473 H Lymph % (Auto) [place] % (Auto) 11.5 H Eos % (Auto) 4.8 H Lymph # [place] # 1.1 H Eos # Seg Neutrophils % Seg Neutrophils # PT INR POC ABG pH POC ABG pCO2 POC ABG pO2 VBG pH Sodium 151 H Potassium Chloride 116.7 H Carbon Dioxide BUN 40 H Creatinine Glucose 114 H POC Glucose 117 H Calcium Magnesium AST 80 H ALT 67 H Alkaline Phosphatase 247 H Total Creatine Kinase NT-Pro-B Natriuret Pep Albumin 1.9 L Urine WBC (Auto) Crossmatch 12/14/18 12/15/18 12/15/18 11:29 00:01 05:13 WBC RBC 2.68 L Hgb 7.4 L Hct 23.1 L MCV MCH MCHC RDW 17.6 H Plt Count 454 H Lymph % (Auto) 13.3 L [place] % (Auto) 9.7 H Eos % (Auto) 6.9 H Lymph # [place] # Eos # 0.6 H Seg Neutrophils % Seg Neutrophils # PT INR POC ABG pH POC ABG pCO2 POC ABG pO2 VBG pH Sodium Potassium Chloride Carbon Dioxide BUN Creatinine Glucose POC Glucose 115 H 113 H Calcium Magnesium AST ALT Alkaline Phosphatase Total Creatine Kinase NT-Pro-B Natriuret Pep Albumin Urine WBC (Auto) Crossmatch 12/15/18 12/15/18 12/15/18 05:13 06:31 11:31 WBC RBC Hgb Hct MCV MCH MCHC RDW Plt Count Lymph % (Auto) [place] % (Auto) Eos % (Auto) Lymph # [place] # Eos # Seg Neutrophils % Seg Neutrophils # PT INR POC ABG pH POC ABG pCO2 POC ABG pO2 VBG pH Sodium 151 H Potassium Chloride 116.4 H Carbon Dioxide BUN 39 H Creatinine Glucose 110 H POC Glucose 130 H 127 H Calcium Magnesium AST 85 H ALT 78 H Alkaline Phosphatase 255 H Total Creatine Kinase NT-Pro-B Natriuret Pep Albumin 1.9 L Urine WBC (Auto) Crossmatch 12/15/18 12/16/18 12/16/18 17:54 00:27 00:33 WBC RBC Hgb Hct MCV MCH MCHC RDW Plt Count Lymph % (Auto) [place] % (Auto) Eos % (Auto) Lymph # [place] # Eos # Seg Neutrophils % Seg Neutrophils # PT INR POC ABG pH POC ABG pCO2 POC ABG pO2 VBG pH Sodium Potassium Chloride Carbon Dioxide BUN Creatinine Glucose POC Glucose 122 H 131 H Calcium Magnesium AST ALT Alkaline Phosphatase Total Creatine Kinase 50 L NT-Pro-B Natriuret Pep Albumin Urine WBC (Auto) Crossmatch 12/16/18 12/16/18 12/16/18 05:31 11:31 17:22 WBC RBC Hgb Hct MCV MCH MCHC RDW Plt Count Lymph % (Auto) [place] % (Auto) Eos % (Auto) Lymph # [place] # Eos # Seg Neutrophils % Seg Neutrophils # PT INR POC ABG pH POC ABG pCO2 POC ABG pO2 VBG pH Sodium Potassium Chloride Carbon Dioxide BUN Creatinine Glucose POC Glucose 138 H 121 H 114 H Calcium Magnesium AST ALT Alkaline Phosphatase Total Creatine Kinase NT-Pro-B Natriuret Pep Albumin Urine WBC (Auto) Crossmatch 12/16/18 12/17/18 12/17/18 23:56 05:01 05:01 WBC 11.1 H RBC 2.96 L Hgb 7.9 L Hct 25.7 L MCV MCH 27 L MCHC 31 L RDW 17.9 H Plt Count 479 H Lymph % (Auto) 11.3 L [place] % (Auto) 7.5 H Eos % (Auto) 4.5 H Lymph # [place] # Eos # 0.5 H Seg Neutrophils % 75.9 H Seg Neutrophils # 8.4 H PT INR POC ABG pH POC ABG pCO2 POC ABG pO2 VBG pH Sodium 155 H Potassium Chloride 121.2 H Carbon Dioxide BUN 41 H Creatinine Glucose 122 H POC Glucose 137 H Calcium Magnesium AST 97 H ALT 99 H Alkaline Phosphatase 279 H Total Creatine Kinase NT-Pro-B Natriuret Pep Albumin 1.8 L Urine WBC (Auto) Crossmatch 12/17/18 12/17/18 12/18/18 11:52 18:17 00:17 WBC RBC Hgb Hct MCV MCH MCHC RDW Plt Count Lymph % (Auto) [place] % (Auto) Eos % (Auto) Lymph # [place] # Eos # Seg Neutrophils % Seg Neutrophils # PT INR POC ABG pH POC ABG pCO2 POC ABG pO2 VBG pH Sodium Potassium Chloride Carbon Dioxide BUN Creatinine Glucose POC Glucose 142 H 140 H 160 H Calcium Magnesium AST ALT Alkaline Phosphatase Total Creatine Kinase NT-Pro-B Natriuret Pep Albumin Urine WBC (Auto) Crossmatch 12/18/18 12/18/18 12/18/18 05:39 05:40 05:40 WBC 11.7 H RBC 2.76 L Hgb 7.5 L Hct 23.8 L MCV MCH 27 L MCHC 31 L RDW 17.8 H Plt Count Lymph % (Auto) [place] % (Auto) Eos % (Auto) Lymph # [place] # Eos # Seg Neutrophils % Seg Neutrophils # PT INR POC ABG pH POC ABG pCO2 POC ABG pO2 VBG pH Sodium 153 H Potassium Chloride 117.6 H Carbon Dioxide BUN 48 H Creatinine Glucose 122 H POC Glucose 138 H Calcium Magnesium AST ALT Alkaline Phosphatase Total Creatine Kinase NT-Pro-B Natriuret Pep Albumin Urine WBC (Auto) Crossmatch 12/18/18 12/18/18 12/19/18 11:32 17:26 00:38 WBC RBC Hgb Hct MCV MCH MCHC RDW Plt Count Lymph % (Auto) [place] % (Auto) Eos % (Auto) Lymph # [place] # Eos # Seg Neutrophils % Seg Neutrophils # PT INR POC ABG pH POC ABG pCO2 POC ABG pO2 VBG pH Sodium Potassium Chloride Carbon Dioxide BUN Creatinine Glucose POC Glucose 136 H 125 H 126 H Calcium Magnesium AST ALT Alkaline Phosphatase Total Creatine Kinase NT-Pro-B Natriuret Pep Albumin Urine WBC (Auto) Crossmatch 12/19/18 12/19/18 12/19/18 05:22 05:22 06:19 WBC 12.2 H RBC 2.86 L Hgb 7.6 L Hct 24.4 L MCV MCH 27 L MCHC 31 L RDW 17.8 H Plt Count Lymph % (Auto) [place] % (Auto) Eos % (Auto) Lymph # [place] # Eos # Seg Neutrophils % Seg Neutrophils # PT INR POC ABG pH POC ABG pCO2 POC ABG pO2 VBG pH Sodium Potassium 5.9 H D Chloride 109.7 H Carbon Dioxide BUN 45 H Creatinine Glucose 107 H POC Glucose 136 H Calcium 8.3 L Magnesium AST ALT Alkaline Phosphatase Total Creatine Kinase NT-Pro-B Natriuret Pep Albumin Urine WBC (Auto) Crossmatch 12/19/18 12/19/18 12/19/18 08:23 11:44 17:09 WBC RBC Hgb Hct MCV MCH MCHC RDW Plt Count Lymph % (Auto) [place] % (Auto) Eos % (Auto) Lymph # [place] # Eos # Seg Neutrophils % Seg Neutrophils # PT INR POC ABG pH POC ABG pCO2 POC ABG pO2 VBG pH Sodium Potassium Chloride 107.7 H Carbon Dioxide BUN 42 H Creatinine Glucose 118 H POC Glucose 130 H 118 H Calcium Magnesium AST ALT Alkaline Phosphatase Total Creatine Kinase NT-Pro-B Natriuret Pep Albumin Urine WBC (Auto) Crossmatch 12/19/18 12/20/18 12/20/18 23:59 05:52 06:24 WBC RBC Hgb Hct MCV MCH MCHC RDW Plt Count Lymph % (Auto) [place] % (Auto) Eos % (Auto) Lymph # [place] # Eos # Seg Neutrophils % Seg Neutrophils # PT INR POC ABG pH POC ABG pCO2 POC ABG pO2 VBG pH Sodium Potassium 5.2 H Chloride 107.2 H Carbon Dioxide 21 L BUN 44 H Creatinine Glucose 118 H POC Glucose 150 H 138 H Calcium Magnesium AST ALT Alkaline Phosphatase Total Creatine Kinase NT-Pro-B Natriuret Pep Albumin Urine WBC (Auto) Crossmatch 12/20/18 12/20/18 12/21/18 11:34 17:10 00:07 WBC RBC Hgb Hct MCV MCH MCHC RDW Plt Count Lymph % (Auto) [place] % (Auto) Eos % (Auto) Lymph # [place] # Eos # Seg Neutrophils % Seg Neutrophils # PT INR POC ABG pH POC ABG pCO2 POC ABG pO2 VBG pH Sodium Potassium Chloride Carbon Dioxide BUN Creatinine Glucose POC Glucose 134 H 141 H 145 H Calcium Magnesium AST ALT Alkaline Phosphatase Total Creatine Kinase NT-Pro-B Natriuret Pep Albumin Urine WBC (Auto) Crossmatch 12/21/18 12/21/18 12/21/18 05:37 05:37 06:58 WBC 12.3 H RBC 2.67 L Hgb 7.1 L Hct 22.4 L MCV MCH 27 L MCHC RDW 17.5 H Plt Count Lymph % (Auto) [place] % (Auto) Eos % (Auto) Lymph # [place] # Eos # Seg Neutrophils % Seg Neutrophils # PT INR POC ABG pH POC ABG pCO2 POC ABG pO2 VBG pH Sodium Potassium Chloride Carbon Dioxide BUN 42 H Creatinine Glucose 127 H POC Glucose 152 H Calcium Magnesium AST ALT Alkaline Phosphatase Total Creatine Kinase NT-Pro-B Natriuret Pep Albumin Urine WBC (Auto) Crossmatch 12/21/18 12/21/18 12/22/18 12:06 17:43 00:11 WBC RBC Hgb Hct MCV MCH MCHC RDW Plt Count Lymph % (Auto) [place] % (Auto) Eos % (Auto) Lymph # [place] # Eos # Seg Neutrophils % Seg Neutrophils # PT INR POC ABG pH POC ABG pCO2 POC ABG pO2 VBG pH Sodium Potassium Chloride Carbon Dioxide BUN Creatinine Glucose POC Glucose 140 H 122 H 128 H Calcium Magnesium AST ALT Alkaline Phosphatase Total Creatine Kinase NT-Pro-B Natriuret Pep Albumin Urine WBC (Auto) Crossmatch 12/22/18 12/22/18 12/22/18 05:42 05:42 06:35 WBC 12.8 H RBC 2.82 L Hgb 7.5 L Hct 23.4 L MCV 83 L MCH 27 L MCHC RDW 17.2 H Plt Count Lymph % (Auto) [place] % (Auto) Eos % (Auto) Lymph # [place] # Eos # Seg Neutrophils % Seg Neutrophils # PT INR POC ABG pH POC ABG pCO2 POC ABG pO2 VBG pH Sodium Potassium Chloride Carbon Dioxide BUN 48 H Creatinine Glucose 115 H POC Glucose 120 H Calcium Magnesium AST ALT Alkaline Phosphatase Total Creatine Kinase NT-Pro-B Natriuret Pep Albumin Urine WBC (Auto) Crossmatch 12/22/18 12/22/18 12/23/18 11:30 18:30 00:02 WBC RBC Hgb Hct MCV MCH MCHC RDW Plt Count Lymph % (Auto) [place] % (Auto) Eos % (Auto) Lymph # [place] # Eos # Seg Neutrophils % Seg Neutrophils # PT INR POC ABG pH POC ABG pCO2 POC ABG pO2 VBG pH Sodium Potassium Chloride Carbon Dioxide BUN Creatinine Glucose POC Glucose 151 H 124 H 169 H Calcium Magnesium AST ALT Alkaline Phosphatase Total Creatine Kinase NT-Pro-B Natriuret Pep Albumin Urine WBC (Auto) Crossmatch 12/23/18 12/23/18 12/23/18 00:51 05:30 06:09 WBC RBC 2.91 L Hgb 7.7 L Hct 24.3 L MCV 83 L MCH 26 L MCHC RDW 17.4 H Plt Count Lymph % (Auto) [place] % (Auto) 12.3 H Eos % (Auto) Lymph # [place] # 1.4 H Eos # Seg Neutrophils % 70.7 H Seg Neutrophils # 7.8 H PT INR POC ABG pH POC ABG pCO2 POC ABG pO2 VBG pH Sodium Potassium Chloride Carbon Dioxide BUN 58 H Creatinine Glucose 121 H POC Glucose 146 H Calcium 7.8 L Magnesium AST ALT Alkaline Phosphatase Total Creatine Kinase NT-Pro-B Natriuret Pep Albumin Urine WBC (Auto) Crossmatch 12/23/18 12/23/18 12/24/18 11:34 17:36 00:24 WBC RBC Hgb Hct MCV MCH MCHC RDW Plt Count Lymph % (Auto) [place] % (Auto) Eos % (Auto) Lymph # [place] # Eos # Seg Neutrophils % Seg Neutrophils # PT INR POC ABG pH POC ABG pCO2 POC ABG pO2 VBG pH Sodium Potassium Chloride Carbon Dioxide BUN Creatinine Glucose POC Glucose 153 H 121 H 144 H Calcium Magnesium AST ALT Alkaline Phosphatase Total Creatine Kinase NT-Pro-B Natriuret Pep Albumin Urine WBC (Auto) Crossmatch 12/24/18 12/24/18 12/24/18 05:59 05:59 06:21 WBC RBC 2.41 L Hgb 6.5 L Hct 20.4 L MCV MCH 27 L MCHC RDW 17.8 H Plt Count Lymph % (Auto) [place] % (Auto) Eos % (Auto) Lymph # [place] # Eos # Seg Neutrophils % Seg Neutrophils # PT INR POC ABG pH POC ABG pCO2 POC ABG pO2 VBG pH Sodium Potassium 5.2 H Chloride Carbon Dioxide BUN 52 H Creatinine Glucose 114 H POC Glucose 140 H Calcium Magnesium AST ALT Alkaline Phosphatase Total Creatine Kinase NT-Pro-B Natriuret Pep Albumin Urine WBC (Auto) Crossmatch 12/24/18 12/24/18 12/24/18 10:27 11:49 18:05 WBC RBC Hgb Hct MCV MCH MCHC RDW Plt Count Lymph % (Auto) [place] % (Auto) Eos % (Auto) Lymph # [place] # Eos # Seg Neutrophils % Seg Neutrophils # PT INR POC ABG pH POC ABG pCO2 POC ABG pO2 VBG pH Sodium Potassium Chloride Carbon Dioxide BUN Creatinine Glucose POC Glucose 146 H 139 H Calcium Magnesium AST ALT Alkaline Phosphatase Total Creatine Kinase NT-Pro-B Natriuret Pep Albumin Urine WBC (Auto) Crossmatch See Detail 12/25/18 12/25/18 12/25/18 00:14 05:50 05:54 WBC RBC Hgb 7.9 L Hct 24.0 L MCV MCH MCHC RDW Plt Count Lymph % (Auto) [place] % (Auto) Eos % (Auto) Lymph # [place] # Eos # Seg Neutrophils % Seg Neutrophils # PT INR POC ABG pH POC ABG pCO2 POC ABG pO2 VBG pH Sodium Potassium Chloride Carbon Dioxide BUN Creatinine Glucose POC Glucose 160 H 137 H Calcium Magnesium AST ALT Alkaline Phosphatase Total Creatine Kinase NT-Pro-B Natriuret Pep Albumin Urine WBC (Auto) Crossmatch 12/25/18 12/25/18 12/26/18 11:39 16:56 00:03 WBC RBC Hgb Hct MCV MCH MCHC RDW Plt Count Lymph % (Auto) [place] % (Auto) Eos % (Auto) Lymph # [place] # Eos # Seg Neutrophils % Seg Neutrophils # PT INR POC ABG pH POC ABG pCO2 POC ABG pO2 VBG pH Sodium Potassium Chloride Carbon Dioxide BUN Creatinine Glucose POC Glucose 137 H 138 H 120 H Calcium Magnesium AST ALT Alkaline Phosphatase Total Creatine Kinase NT-Pro-B Natriuret Pep Albumin Urine WBC (Auto) Crossmatch 12/26/18 12/26/18 06:35 11:26 WBC RBC Hgb Hct MCV MCH MCHC RDW Plt Count Lymph % (Auto) [place] % (Auto) Eos % (Auto) Lymph # [place] # Eos # Seg Neutrophils % Seg Neutrophils # PT INR POC ABG pH POC ABG pCO2 POC ABG pO2 VBG pH Sodium Potassium Chloride Carbon Dioxide BUN Creatinine Glucose POC Glucose 134 H 147 H Calcium Magnesium AST ALT Alkaline Phosphatase Total Creatine Kinase NT-Pro-B Natriuret Pep Albumin Urine WBC (Auto) Crossmatch Allied health notes reviewed: nursing
[2018-12-26] MEDS: D5W 1,000 ML IV SCH (13:36)
--- NOTE | 2018-12-26 15:36 | Progress Note ---
Assessment and Plan Assessment and plan: 68 YO Male Alf Facility Resident as [facility] with HTN, CVA, Obstructive Uropathy, Diastolic CHF, Contracture, Sacral Decubitus Ulcers, NH, DM, OA, Seizure Disorder, COPD, Dementia, BPH presents to ED for evaluation. Pt is stuporous and unable to provide history. Pt history taken from ED Staff, EMS, and SNF Staff. As per staff, the patient was found to have respiratory distress upon evaluation. Pt found to have pulse oximetry in the 80's. EMS notified and patient subsequently transported to [facility] for further care and evaluation. Patient seen and evaluated in ED and found to have UTI, Sepsis, Encephalopathy as well as Acute Hypoxemic Respiratory Failure. patient has had a prolonged course, had completed antibiotics, was awaiting placement in isolation bed. hopwever he started having fever past few days, ID reconsulted and started Cefepime and Vancomycin 12/22/18 Physicians had Extensive discussion with family about patients poor prognosis surgery consulted, did debridement at bedside ID following, Continue isolation precautions Bright placed by Urology. Please do not remove Poor to grim prognosis per ALL CONSULTANTS And should consider Hospice. FAMILY REFUSING ALL THERAPEUTIC OFFERS INCLUDING AMPUTATION Risk of continued ABX RESISTANCE DISCUSSED EXTENSIVELY WITH THE FAMILY 12/24- Low grade fever- expected. 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 He needs to be on contact isolation. This cannot be cured with antibiotics. recommend palliative car e/comfort care or hospice, family are not interested in that option. Completed daptomycin for 6 weeks completed 12/16/2018 patient often refusing treatment some times Sacral pressure ulcer -infected. POA Debridement done by Dr Man Amputation recommended and the daughter refused Hyperkalemia: Give additional kayaxlate, will repeat Respiratory failure Supplemental oxygen, nebulizer therapy, mgt per pulmonology ANEMIA of chronic disease Transfused total 2 units PRBC. gave additional 1 unit for total of 3 due to gradual decline of H/H TO 6.4 ON 12/24 Transfuse as necessary Obstructive Uropathy -Indwelling bright catheter Urology consulted to assist with management. Seizure Continue current therapy, seizure precautions. 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 Resolved after kayexalate and Calcium Gluconate 1 g iv Fever repeat blood cultures Re-consulted ID Physician Started on Cefepime and Vancomycin on 12/22/18 Poor Prognosis Disposition; pending SNF placement. Multiple debridements done again 12/19/18 DVT prophylaxis Prophylactic lovenox Patients prognosis remains grave, he unfortunately is developing recurrent resistance to medications. This has been discussed in detail with the patient and daughter History Interval history: Patient seen and examined, no clinical change in condition, per nursing staff, patient has been refusing treatment on some days and other days only accepting a few treatment Hospitalist Physical - Physical exam Narrative exam: Gen: Not in acute distress. lying in bed, lethargic Head exam is unremarkable. No scleral icterus . Neck is without jugular venous distension, thyromegaly, or carotid bruits. Lungs are Diminished to auscultation. Cardiac exam reveals regular rate and Rhythm. First and second heart sounds normal. No murmurs, rubs or gallops. Abdominal exam reveals non tender, not distended,normal bowel sounds, no masses, Extremities contracted extremities. 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 - Constitutional Vitals: Temp Pulse Resp BP Pulse Ox 97.9 F 92 H 19 136/60 96 12/26/18 13:20 12/26/18 13:20 12/26/18 13:20 12/26/18 13:20 12/26/18 13:20 General appearance: Present: no acute distress Results - Labs CBC & Chem 7: 12/25/18 05:50 12/24/18 05:59 Labs: Laboratory Last Values WBC 10.4 K/mm3 (4.5-11.0) 12/24/18 05:59 RBC 2.41 M/mm3 (3.65-5.03) L 12/24/18 05:59 Hgb 7.9 gm/dl (11.8-15.2) L 12/25/18 05:50 Hct 24.0 % (35.5-45.6) L 12/25/18 05:50 MCV 85 fl (84-94) 12/24/18 05:59 MCH 27 pg (28-32) L 12/24/18 05:59 MCHC 32 % (32-34) 12/24/18 05:59 RDW 17.8 % (13.2-15.2) H 12/24/18 05:59 Plt Count 399 K/mm3 (140-440) 12/24/18 05:59 Lymph % (Auto) 13.4 % (13.4-35.0) 12/23/18 00:51 [place] % (Auto) 12.3 % (0.0-7.3) H 12/23/18 00:51 Eos % (Auto) 3.0 % (0.0-4.3) 12/23/18 00:51 Baso % (Auto) 0.6 % (0.0-1.8) 12/23/18 00:51 Lymph # 1.5 K/mm3 (1.2-5.4) 12/23/18 00:51 [place] # 1.4 K/mm3 (0.0-0.8) H 12/23/18 00:51 Eos # 0.3 K/mm3 (0.0-0.4) 12/23/18 00:51 Baso # 0.1 K/mm3 (0.0-0.1) 12/23/18 00:51 Seg Neutrophils % 70.7 % (40.0-70.0) H 12/23/18 00:51 Seg Neutrophils # 7.8 K/mm3 (1.8-7.7) H 12/23/18 00:51 PT 16.3 Sec. (12.2-14.9) H 11/01/18 14:50 INR 1.35 (0.87-1.13) H 11/01/18 14:50 POC ABG pH 7.494 (7.35-7.45) H 11/01/18 15:27 POC ABG pCO2 34.5 (35-45) L 11/01/18 15:27 POC ABG pO2 139 (80-105) H 11/01/18 15:27 POC ABG HCO3 26.5 (22-26 mml/L) 11/01/18 15:27 POC ABG Total CO2 28 (23-27mmol/L) 11/01/18 15:27 POC ABG O2 Sat 99 11/01/18 15:27 POC ABG Base Excess 3 ((-2) - (+3)mmol/L) 11/01/18 15:27 VBG pH 7.499 (7.320-7.420) H 11/01/18 14:50 50 % 11/01/18 15:27 Sodium 138 mmol/L (137-145) 12/24/18 05:59 Potassium 5.2 mmol/L (3.6-5.0) H 12/24/18 05:59 Chloride 103.1 mmol/L (98-107) 12/24/18 05:59 Carbon Dioxide 22 mmol/L (22-30) 12/24/18 05:59 18 mmol/L 12/24/18 05:59 BUN 52 mg/dL (9-20) H 12/24/18 05:59 1.0 mg/dL (0.8-1.5) 12/24/18 05:59 Estimated GFR > 60 ml/min 12/24/18 05:59 52 % 12/24/18 05:59 Glucose 114 mg/dL (75-100) H 12/24/18 05:59 POC Glucose 147 (70-105) H 12/26/18 11:26 Lactic Acid 1.80 mmol/L (0.7-2.0) 11/01/18 14:50 Calcium 8.7 mg/dL (8.4-10.2) 12/24/18 05:59 Phosphorus 2.90 mg/dL (2.5-4.5) 11/22/18 09:43 Magnesium 2.50 mg/dL (1.7-2.3) H 12/06/18 20:57 0.20 mg/dL (0.1-1.2) 12/17/18 05:01 AST 97 units/L (5-40) H 12/17/18 05:01 ALT 99 units/L (7-56) H 12/17/18 05:01 279 units/L (35-129) H 12/17/18 05:01 50 units/L (55-170) L 12/16/18 00:27 NT-Pro-B Natriuret Pep 6776 pg/mL (0-900) H 11/01/18 14:50 7.7 g/dL (6.3-8.2) 12/17/18 05:01 1.8 g/dL (3.9-5) L 12/17/18 05:01 0.3 % 12/17/18 05:01 14 units/L (13-60) 11/25/18 15:07 Yellow (Yellow) 11/01/18 15:57 Turbid (Clear) 11/01/18 15:57 6.0 (5.0-7.0) 11/01/18 15:57 Ur Specific [place] 1.016 (1.003-1.030) 11/01/18 15:57 100 mg/dl mg/dL (Negative) 11/01/18 15:57 Neg mg/dL (Negative) 11/01/18 15:57 Neg mg/dL (Negative) 11/01/18 15:57 Neg (Negative) 11/01/18 15:57 Neg (Negative) 11/01/18 15:57 Neg (Negative) 11/01/18 15:57 < 2.0 mg/dL (<2.0) 11/01/18 15:57 Ur Leukocyte Esterase Mod (Negative) 11/01/18 15:57 > 182.0 /HPF (0.0-6.0) H 11/01/18 15:57 40.0 /HPF (0.0-6.0) 11/01/18 15:57 U Epithel Cells (Auto) 8.0 /HPF (0-13.0) 11/01/18 15:57 3+ /HPF 11/01/18 15:57 3+ /HPF 11/01/18 15:57 Random Vancomycin 13.9 ug/mL (0-40.0) 11/02/18 05:05 Blood Type O POSITIVE 12/24/18 10:27 Antibody Screen Negative 12/24/18 10:27 Crossmatch See Detail 12/24/18 10:27 Active Medications - Current Medications Current Medications: Generic Name Dose Route Start Last Admin Trade Name Freq PRN Reason Stop Dose Admin Acetaminophen 650 mg 12/11/18 15:21 12/23/18 21:45 Tylenol FEEDTUBE 650 mg Q6H PRN Administration Pain, Mild (1-3) Albuterol 2.5 mg 11/01/18 17:15 Proventil IH Q3HRT PRN Shortness Of Breath Lipase/Protease/Amylase 1 each 12/23/18 16:23 Pancreazadela Moore 10,500 Unit FEEDTUBE PRN PRN For Clogged Feeding Tube Ascorbic Acid 500 mg 11/01/18 22:00 12/26/18 09:48 Vitamin C FEEDTUBE 500 mg BID NORA Administration Atorvastatin Calcium 40 mg 11/01/18 22:00 12/25/18 23:33 Lipitor FEEDTUBE 40 mg QHS NORA Administration Carvedilol 6.25 mg 11/08/18 13:00 12/26/18 09:48 Coreg PO 6.25 mg BID NORA Administration Enoxaparin Sodium 40 mg 11/02/18 10:00 12/26/18 09:47 Lovenox SUB-Q 40 mg QDAY@1000 NORA Administration Hydralazine HCl 10 mg 11/25/18 22:00 12/26/18 09:49 Apresoline PO 10 mg Q12HR NORA Administration Dextrose 1,000 mls @ 75 mls/hr 12/16/18 09:30 12/26/18 13:36 D5w IV 75 mls/hr DIRECT NORA Administration Cefepime HCl 2 gm in 100 mls @ 200 mls/hr 12/22/18 15:00 12/26/18 09:48 Maxipime/Ns 2 Gm/100 Ml IV 200 mls/hr Q12HR NORA Administration Protocol Levetiracetam 500 mg 11/01/18 22:00 12/26/18 09:48 Keppra FEEDTUBE 500 mg BID NORA Administration Morphine Sulfate 2 mg 11/01/18 17:15 12/23/18 08:54 Morphine IV 2 mg Q4H PRN Administration Pain, Moderate (4-6) Multivitamins 5 ml 11/02/18 10:00 12/26/18 09:47 Centrum Liq FEEDTUBE 5 ml QDAY NORA Administration Polyethylene Glycol 17 gm 12/10/18 15:00 12/26/18 09:47 Miralax 3350 FEEDTUBE 17 gm QDAY NORA Administration Senna 8.6 mg 12/10/18 14:56 Senokot FEEDTUBE Q12H PRN Laxative Effect Simple Syrup 15 ml 12/23/18 16:23 Simple Syrup FEEDTUBE PRN PRN Hypoglycemia Simple Syrup 30 ml 12/23/18 16:23 Simple Syrup FEEDTUBE PRN PRN Hypoglycemia Sodium Bicarbonate 325 mg 12/23/18 16:23 Sodium Bicarbonate FEEDTUBE PRN PRN For Clogged Feeding Tube Sodium Biphosphate/Sodium Phosphate 133 ml 12/10/18 14:55 Fleet ME QDAY PRN Bowel Movement Sodium Chloride 10 ml 11/01/18 22:00 12/26/18 09:47 Sodium Chloride Flush Syringe 10 Ml IV 10 ml BID NORA Administration Sodium Chloride 10 ml 11/01/18 17:15 11/23/18 04:05 Sodium Chloride Flush Syringe 10 Ml IV 10 ml PRN PRN Administration LINE FLUSH Zinc Sulfate 220 mg 11/02/18 10:00 12/26/18 09:47 Zinc Sulfate PO 220 mg DAILY NORA Administration Nutrition/Malnutrition Assess - Dietary Evaluation Nutrition/Malnutrition Findings: Nutrition Notes Start: 11/04/18 16:00 Freq: Status: Active Protocol: Document 12/23/18 16:16 OH (Rec: 12/23/18 16:23 OH [id number]) Nutrition Notes Initial or Follow up Brief Note Current Diagnosis COPD,Diabetes,Sepsis, Hypertension,Heart Failure, Stroke Other Pertinent Diagnosis Infected sacral decubitus, Dementia, BPH, UTI Current Diet TF - Glucerna 1.2 at 70ml/hr + Mario BID Labs/Tests Reviewed Pertinent Medications Reviewed Height 5 ft 8 in Weight 62.1 kg [place] Body Weight (kg) 70.00 BMI 20.8 Subjective/Other Information Pt. lying in bed with glucerna 1.2 infusing @ 70 mL/hr. Per RN pt tolerating TF w/o n/v/ sputum. Pt. has order for Mario but RN states he has none in his pt cubby. Will f/u to ensure providing as ordered. Percent of energy/protein needs met: 100/100 Burn Absent Trauma Absent Is patient on ventilator? No Is Patient Ambulatory and/or Out of Bed No REE-([facility]-confined to bed) 1638.480 Kcal/Kg value to use for calculation 34 Approximate Energy Requirements Using 2111 kcal/Kg Calculation Used for Recommendations Kcal/kg Additional Notes Pro needs 1.5-2g/k-124g/ day Fluid needs 1ml/kcal Nutrition Intervention Nutrition Support: Glucerna 1.2 at 70ml/hr Water flush of 200 mls q 4 hrs until hypernatremia resolves. Water flush of 100 mls q 4 hrs once hypernatremia resolves. Kcal 2,016 Protein (gm) 101 Carbohydrates (gm) 192 Fat (gm) 101 Fluid (mL) 1,352 Add Supplement/Snack (indicate name/kcal Mario BID /protein ) Provides kCal: 190 Provides Protein (gm) 5 Goal #1 TF tolerance Goal #2 TF to continue to meet at least 75% of calorie and protein needs Follow-Up By: 12/26/18 Additional Comments Follow for TF tolerance, Mario administration
[2018-12-27 04:49] LABS: Mean Corpuscular HGB Conc 33 % (32-34); Mean Corpuscular Volume 85 fl (84-94); Platelet Count 436 K/mm3 (140-440); Red Blood Count 2.84 M/mm3 (3.65-5.03); Red Cell Distribution Width 17.2 % (13.2-15.2)
[2018-12-27 05:02] LABS: BUN/Creatinine Ratio 43; Blood Urea Nitrogen 43 mg/dL (9-20); Hemolysis Index 2
[2018-12-27] MEDS: D5W 1,000 ML IV SCH (05:08)
--- NOTE | 2018-12-27 08:54 | Progress Note ---
Assessment and Plan Cultures: Blood culture 10/01/2018 MRSA 2 of 4. Blood culture 10/03/2018 MRSA Blood culture 10/08/2018 no growth Blood culture 10/11/2018 no growth Blood culture 10/21/2018 no growth Blood culture 11/01/2018 Staph haemolyticus 2 of 4 bottles, resistent to methicillin and MRSA 1 of 4 bottles Blood culture 11/04/2018 no growth Blood culture 12/21/2018 no growth Assessment: 67 y/o male with history of HTN, CVA, Obstructive Uropathy, Contracture, Multiple Decubitus Ulcers, UT, DM, OA, Seizure Disorder, COPD, Dementia, Debility, BPH, well known to ID due to multiple admissions secondary to ducubitus ulcers infections and recurrent bacteremia, last time admitted on 10/02/2018 found with MRSA bacteremia jessica from decubitus ulcers mainly active large left trochanteric with bone exposure and sacral with bone exposure. Patient's infection was deemed incurable and hospice was recommended. Patient wa s discharged back to [facility] on IV vancomycin 1 gm every 48 hours for total 6 weeks ending 11/12/2018 via neck tunneled cath. Patient was readmitted on due to AMS, worsening SOB. Patient is lethargic and unable to provide history. At the [facility] he was found to have respiratory distress upon evaluation the morning of admission,pulse oximetry in the 80's: 1) New Fever: Improved. No fever in >24 hours, however has recurrent fevers. unlikely active infection. Repeat blood cultures show no growth. Left tunneled PICC now nonfunctioning. Central venous catheter removed by vascular. Now peripheral IV access. Completed antibiotic course of Cefepime. 2) Severe Sepsis: Resolved. 3) Staph haemolyticus and MRSA bacteremia with recent MRSA bacteremia: Blood culture 11/01/2018 Staph haemolyticus 2 of 4 bottles and MRSA 1 of 4. Source likely multiple decubitus ulcers or Neck IV central line. Patient is failing vancomycin. He has a tunneled neck cath. Recent TTE negative for vegetations. Antibiotic course of Daptomycin completed. 4) Recent septic shock due to polymicrobial bacteremia ESBL and carbapenem resistant E coli, MDR Proteus, Strep and E faecalis on 07/29/2018 probably from multiple infected decubitus ulcers and less likely UTI. Repeat blood cultures 07/31/2018 showed same MDR E coli 1 of 4 bottles then 08/06/2018 blood cultures showed no growth. Patient was treated with Vabomere for 14 days. 5) Multiple infected decubitus ulcers: His prognosis has been poor and hospice has been recommended several times in the past but family has declined. decline d. His wounds are not curable considering his contractures, bed bound status and poor nutritional status. There was also suspicion of septic arthritis of left hip from decubitus ulcer. S/p debridement of multiple pressure ulcerations on 11/07/2018- stage 4 left hip pressure ulceration was surgically excisionally debrided of necrotic bone, stage 3 sacral, right ankle and left heel pressure ulcers were then surgically, excisionally debrided of necrotic SQ fat, stage 4 right heel, left lateral heel and right lateral leg ulcerations were surgically, excisionally debrided of necrotic SQ tissue, muscle and fascia. Dr Man recommended bilateral AKA, patient and daughter refused. Dr Man recommended Orthopedic consultation for possible left hip disarticulation as his left hip joint is crumbling and has profuse purulent drainage. 6) Recurrent UTI: bright exchanged every 30 days per nursing 7) Acute encephalopathy: multifactorial. 8) Acute resp failure: On Recommendations: Discontinue Cefepime - completed antibiotic course Has recurrent fevers unlikely active infection - monitor off antibiotics Needs to be hospice Grim prognosis. ID is signing off, please call for questions [facility] M: [phone] O:[phone] Subjective Date of service: 12/27/18 Principal diagnosis: Severe Sepsis; Ac. Hypoxemic Resp failure; Anemia; Seizure; UTI; BPH Interval history: Patient seen and examined. Awake. Alert. No acute distress reported. No Fevers. Objective - Exam Narrative Exam: General appearance: Awake. Alert. No acute distress Eyes: anicteric sclerae, moist conjunctivae; no lid-lag; PERRLA HENT: Atraumatic; oropharynx limited Neck: Trachea midline; supple, no thyromegaly or lymphadenopathy Lungs: CTA CV: RRR no murmur Abdomen: Soft, non-tender Extremities: marked legs contractions, multiple decubitus ulcers covered with dressings. Right leg dressing with serosanguinous drainage. Skin: multiple skin tears Psych: Agitated. Lines: PIV - Constitutional Vitals: Vital Signs Temp Pulse Resp BP Pulse Ox 99.3 F 105 H 20 108/45 96 12/27/18 08:09 12/27/18 08:09 12/27/18 08:09 12/27/18 08:09 12/27/18 08:09 Temperature -Last 24 Hours Temperature 99.3 F Temperature 99.0 F Temperature 98.5 F Temperature 98.0 F Temperature 97.9 F - Labs CBC & Chem 7: 12/27/18 04:23 12/27/18 04:23 Labs: Abnormal lab results 12/26/18 12/26/18 12/26/18 Range/Units 11:26 18:30 23:56 RBC (3.65-5.03) M/mm3 Hgb (11.8-15.2) gm/dl Hct (35.5-45.6) % RDW (13.2-15.2) % Sodium (137-145) mmol/L Potassium (3.6-5.0) mmol/L BUN (9-20) mg/dL Glucose (75-100) mg/dL POC Glucose 147 H 118 H 117 H (70-105) 12/27/18 12/27/18 12/27/18 Range/Units 04:23 04:23 06:40 RBC 2.84 L (3.65-5.03) M/mm3 Hgb 8.0 L (11.8-15.2) gm/dl Hct 24.0 L (35.5-45.6) % RDW 17.2 H (13.2-15.2) % Sodium 136 L (137-145) mmol/L Potassium 5.3 H (3.6-5.0) mmol/L BUN 43 H (9-20) mg/dL Glucose 110 H (75-100) mg/dL POC Glucose 113 H (70-105)
[2018-12-27] MEDS: LOVENOX SUB-Q SCH (09:31)
[2018-12-27] MEDS: COREG PO SCH (09:32)
[2018-12-27] MEDS: ZINC SULFATE PO SCH (09:32)
[2018-12-27] MEDS: Centrum Liq FEEDTUBE SCH (09:32)
[2018-12-27] MEDS: KEPPRA FEEDTUBE SCH (09:32)
[2018-12-27] MEDS: VITAMIN C FEEDTUBE SCH (09:32)
[2018-12-27] MEDS: MIRALAX 3350 FEEDTUBE SCH (09:33)
[2018-12-27] MEDS: SODIUM CHLORIDE FLUSH SYRINGE 10 ML IV SCH (09:34)
[2018-12-27] MEDS: APRESOLINE PO SCH (09:46)
--- NOTE | 2018-12-27 11:08 | Progress Note ---
Assessment and Plan Severe Sepsis Acute Hypoxemic Respiratory failure Anemia of chronic disease Seizure UTI (urinary tract infection) BPH Dementia sacral pressure ulcer -infected. POA - continue prn supplemental oxygen as needed to keep O2 sat's > 90% - continue bronchodilators with pulmonary hygiene per RT (stopped scheduled treatments) - continue aspiration precautions - complete antibiotics per ID rec's (On Daptomycin) - prn BIPAP for increased work of breathing - prn CXR's - continue Coreg re: SVT - continue AED's for seizure control (Keppra) - continue fall precautions & neurochecks - enteral nutrition as tolerated - continue wound care per WCT - continue bright catheter re: Obstructive Uropathy - GI & VTE prophylaxis - continue mobility protocol for pressure ulcer prophylaxis - continue other care per attending / other consultants ..... discharge planning ongoing concurrently ...... remains Full CODE ... re-evaluate in am & prn Subjective Date of service: 12/27/18 Principal diagnosis: Severe Sepsis; Ac. Hypoxemic Resp failure; Anemia; Seizure; UTI; BPH Interval history: Patient is seen today for: Severe Sepsis; Acute Hypoxemic Respiratory failure; Anemia of chronic disease; Seizure; UTI (urinary tract infection); BPH; Dementia; sacral pressure ulcer -infected. POA Seen and examined at bedside; 24-hour events reviewed; nursing and respiratory care staff consulted; no adverse overnight events reported to me; resting peacefully in bed; s/p loose stools X 1 this am; nods head yes to pain; No N/V/F/C Objective Vital Signs - 12hr 12/27/18 12/27/18 12/27/18 01:29 08:00 08:09 Temperature 98.5 F 99.0 F 99.3 F Pulse Rate 88 104 H 105 H Respiratory 24 18 20 Rate Blood Pressure 123/70 108/45 Blood Pressure 108/45 [Left] O2 Sat by Pulse 96 96 Oximetry Constitutional: no acute distress, alert, other (elderly looking AAM, normocephalic with mildly increased resp effort at rest) Eyes: non-icteric ENT: oropharynx moist Neck: no lymphadenopathy, no JVD, other (mild stiffness / contracture) Effort: normal Ascultation: Bilateral: clear, diminished breath sounds Percussion: Bilateral: not dull Cardiovascular: regular rate and rhythm Gastrointestinal: normoactive bowel sounds, soft, non-tender, non-distended Integumentary: other (Patient has pressure ulcer at multiple areas, including sacral area.) Extremities: no cyanosis, no edema, pulses normal, other (Patient has pressure ulcer at multiple areas, including sacral area.) Neurologic: non-focal exam, pupils equal and round, CN II-XII normal, other (+ contractures) Psychiatric: mood appropriate, affect normal CBC and BMP: 12/27/18 04:23 12/27/18 04:23 ABG, PT/INR, D-dimer: ABG POC ABG pH 7.494 (7.35-7.45) H 11/01/18 15:27 POC ABG pCO2 34.5 (35-45) L 11/01/18 15:27 POC ABG pO2 139 (80-105) H 11/01/18 15:27 POC ABG HCO3 26.5 (22-26 mml/L) 11/01/18 15:27 POC ABG Total CO2 28 (23-27mmol/L) 11/01/18 15:27 POC ABG O2 Sat 99 11/01/18 15:27 PT/INR, D-dimer PT 16.3 Sec. (12.2-14.9) H 11/01/18 14:50 INR 1.35 (0.87-1.13) H 11/01/18 14:50 Abnormal lab findings: Abnormal Labs 11/01/18 11/01/18 11/01/18 14:50 14:50 14:50 WBC 15.3 H RBC 2.76 L Hgb 7.9 L Hct 23.5 L MCV MCH MCHC RDW 18.3 H Plt Count 567 H Lymph % (Auto) 6.5 L [place] % (Auto) 8.5 H Eos % (Auto) Lymph # 1.0 L [place] # 1.3 H Eos # Seg Neutrophils % 83.4 H Seg Neutrophils # 12.7 H PT 16.3 H INR 1.35 H POC ABG pH POC ABG pCO2 POC ABG pO2 VBG pH Sodium Potassium Chloride Carbon Dioxide BUN 49 H Creatinine Glucose 132 H POC Glucose Calcium Magnesium AST 90 H ALT 77 H Alkaline Phosphatase 350 H Total Creatine Kinase NT-Pro-B Natriuret Pep Albumin 1.6 L Urine WBC (Auto) Crossmatch 11/01/18 11/01/18 11/01/18 14:50 14:50 15:27 WBC RBC Hgb Hct MCV MCH MCHC RDW Plt Count Lymph % (Auto) [place] % (Auto) Eos % (Auto) Lymph # [place] # Eos # Seg Neutrophils % Seg Neutrophils # PT INR POC ABG pH 7.494 H POC ABG pCO2 34.5 L POC ABG pO2 139 H VBG pH 7.499 H Sodium Potassium Chloride Carbon Dioxide BUN Creatinine Glucose POC Glucose Calcium Magnesium AST ALT Alkaline Phosphatase Total Creatine Kinase NT-Pro-B Natriuret Pep 6776 H Albumin Urine WBC (Auto) Crossmatch 11/01/18 11/03/18 11/03/18 15:57 03:41 03:41 WBC 12.8 H RBC 2.55 L Hgb 6.9 L Hct 22.2 L MCV MCH 27 L MCHC 31 L RDW 17.9 H Plt Count 519 H Lymph % (Auto) [place] % (Auto) Eos % (Auto) Lymph # [place] # Eos # Seg Neutrophils % Seg Neutrophils # PT INR POC ABG pH POC ABG pCO2 POC ABG pO2 VBG pH Sodium 147 H Potassium Chloride 110.3 H Carbon Dioxide BUN 55 H Creatinine Glucose POC Glucose Calcium Magnesium AST ALT Alkaline Phosphatase Total Creatine Kinase NT-Pro-B Natriuret Pep Albumin Urine WBC (Auto) > 182.0 H Crossmatch 11/03/18 11/04/18 11/04/18 12:51 05:12 05:12 WBC 11.5 H RBC 2.94 L Hgb 8.3 L Hct 25.3 L MCV MCH MCHC RDW 17.3 H Plt Count 514 H Lymph % (Auto) [place] % (Auto) Eos % (Auto) Lymph # [place] # Eos # Seg Neutrophils % Seg Neutrophils # PT INR POC ABG pH POC ABG pCO2 POC ABG pO2 VBG pH Sodium 147 H Potassium Chloride 112.4 H Carbon Dioxide BUN 52 H Creatinine Glucose POC Glucose Calcium Magnesium AST ALT Alkaline Phosphatase Total Creatine Kinase NT-Pro-B Natriuret Pep Albumin Urine WBC (Auto) Crossmatch See Detail 11/05/18 11/05/18 11/06/18 04:50 04:50 05:42 WBC RBC 3.03 L 2.80 L Hgb 8.7 L 7.9 L Hct 26.6 L 24.7 L MCV MCH MCHC RDW 17.1 H 17.0 H Plt Count 502 H 478 H Lymph % (Auto) 10.4 L [place] % (Auto) 8.6 H Eos % (Auto) 4.7 H Lymph # 1.0 L [place] # Eos # 0.5 H Seg Neutrophils % 75.6 H Seg Neutrophils # PT INR POC ABG pH POC ABG pCO2 POC ABG pO2 VBG pH Sodium 149 H Potassium Chloride 114.4 H Carbon Dioxide 21 L BUN 50 H Creatinine Glucose 108 H POC Glucose Calcium Magnesium AST ALT Alkaline Phosphatase Total Creatine Kinase NT-Pro-B Natriuret Pep Albumin Urine WBC (Auto) Crossmatch 11/06/18 11/11/18 11/12/18 05:42 18:54 00:22 WBC RBC Hgb Hct MCV MCH MCHC RDW Plt Count Lymph % (Auto) [place] % (Auto) Eos % (Auto) Lymph # [place] # Eos # Seg Neutrophils % Seg Neutrophils # PT INR POC ABG pH POC ABG pCO2 POC ABG pO2 VBG pH Sodium 149 H Potassium Chloride 113.4 H Carbon Dioxide BUN 50 H Creatinine Glucose 121 H POC Glucose 114 H 123 H Calcium Magnesium AST ALT Alkaline Phosphatase Total Creatine Kinase NT-Pro-B Natriuret Pep Albumin Urine WBC (Auto) Crossmatch 11/12/18 11/12/18 11/13/18 06:49 11:35 06:34 WBC RBC Hgb Hct MCV MCH MCHC RDW Plt Count Lymph % (Auto) [place] % (Auto) Eos % (Auto) Lymph # [place] # Eos # Seg Neutrophils % Seg Neutrophils # PT INR POC ABG pH POC ABG pCO2 POC ABG pO2 VBG pH Sodium Potassium Chloride Carbon Dioxide BUN Creatinine Glucose POC Glucose 129 H 123 H 128 H Calcium Magnesium AST ALT Alkaline Phosphatase Total Creatine Kinase NT-Pro-B Natriuret Pep Albumin Urine WBC (Auto) Crossmatch 11/13/18 11/13/18 11/13/18 09:26 09:26 15:13 WBC RBC 3.08 L Hgb 8.6 L Hct 27.3 L MCV MCH MCHC 31 L RDW 18.3 H Plt Count 504 H Lymph % (Auto) 11.7 L [place] % (Auto) 7.5 H Eos % (Auto) 7.0 H Lymph # [place] # Eos # 0.7 H Seg Neutrophils % 72.9 H Seg Neutrophils # PT INR POC ABG pH POC ABG pCO2 POC ABG pO2 VBG pH Sodium 153 H Potassium 6.3 H* 5.8 H Chloride 122.3 H Carbon Dioxide 21 L BUN 38 H Creatinine Glucose 112 H POC Glucose Calcium Magnesium AST ALT Alkaline Phosphatase Total Creatine Kinase NT-Pro-B Natriuret Pep Albumin Urine WBC (Auto) Crossmatch 11/13/18 11/13/18 11/14/18 22:10 23:45 13:17 WBC RBC Hgb Hct MCV MCH MCHC RDW Plt Count Lymph % (Auto) [place] % (Auto) Eos % (Auto) Lymph # [place] # Eos # Seg Neutrophils % Seg Neutrophils # PT INR POC ABG pH POC ABG pCO2 POC ABG pO2 VBG pH Sodium 155 H Potassium 5.3 H Chloride 122.3 H Carbon Dioxide BUN 35 H Creatinine Glucose 113 H POC Glucose 111 H 142 H Calcium Magnesium AST ALT Alkaline Phosphatase Total Creatine Kinase NT-Pro-B Natriuret Pep Albumin Urine WBC (Auto) Crossmatch 11/14/18 11/15/18 11/15/18 19:08 00:31 06:45 WBC RBC Hgb Hct MCV MCH MCHC RDW Plt Count Lymph % (Auto) [place] % (Auto) Eos % (Auto) Lymph # [place] # Eos # Seg Neutrophils % Seg Neutrophils # PT INR POC ABG pH POC ABG pCO2 POC ABG pO2 VBG pH Sodium Potassium Chloride Carbon Dioxide BUN Creatinine Glucose POC Glucose 116 H 125 H 131 H Calcium Magnesium AST ALT Alkaline Phosphatase Total Creatine Kinase NT-Pro-B Natriuret Pep Albumin Urine WBC (Auto) Crossmatch 11/15/18 11/15/18 11/15/18 07:13 07:13 19:03 WBC 13.2 H RBC 2.81 L Hgb 7.8 L Hct 24.5 L MCV MCH MCHC RDW 18.2 H Plt Count 454 H Lymph % (Auto) 9.0 L [place] % (Auto) 7.5 H Eos % (Auto) Lymph # [place] # 1.0 H Eos # 0.5 H Seg Neutrophils % 78.8 H Seg Neutrophils # 10.4 H PT INR POC ABG pH POC ABG pCO2 POC ABG pO2 VBG pH Sodium 149 H Potassium 5.2 H Chloride 117.2 H Carbon Dioxide BUN 38 H Creatinine Glucose 114 H POC Glucose 141 H Calcium Magnesium AST ALT Alkaline Phosphatase Total Creatine Kinase NT-Pro-B Natriuret Pep Albumin Urine WBC (Auto) Crossmatch 11/16/18 11/16/18 11/16/18 01:15 01:15 06:45 WBC RBC Hgb Hct MCV MCH MCHC RDW Plt Count Lymph % (Auto) [place] % (Auto) Eos % (Auto) Lymph # [place] # Eos # Seg Neutrophils % Seg Neutrophils # PT INR POC ABG pH POC ABG pCO2 POC ABG pO2 VBG pH Sodium Potassium 5.3 H Chloride Carbon Dioxide BUN Creatinine Glucose POC Glucose 129 H Calcium Magnesium 2.60 H AST ALT Alkaline Phosphatase Total Creatine Kinase NT-Pro-B Natriuret Pep Albumin Urine WBC (Auto) Crossmatch 11/16/18 11/16/18 11/17/18 13:20 18:02 00:16 WBC RBC Hgb Hct MCV MCH MCHC RDW Plt Count Lymph % (Auto) [place] % (Auto) Eos % (Auto) Lymph # [place] # Eos # Seg Neutrophils % Seg Neutrophils # PT INR POC ABG pH POC ABG pCO2 POC ABG pO2 VBG pH Sodium Potassium Chloride Carbon Dioxide BUN Creatinine Glucose POC Glucose 130 H 127 H 120 H Calcium Magnesium AST ALT Alkaline Phosphatase Total Creatine Kinase NT-Pro-B Natriuret Pep Albumin Urine WBC (Auto) Crossmatch 11/17/18 11/17/18 11/17/18 05:48 08:02 08:02 WBC RBC Hgb 7.5 L Hct 23.5 L MCV MCH MCHC RDW Plt Count Lymph % (Auto) [place] % (Auto) Eos % (Auto) Lymph # [place] # Eos # Seg Neutrophils % Seg Neutrophils # PT INR POC ABG pH POC ABG pCO2 POC ABG pO2 VBG pH Sodium Potassium Chloride 110.1 H Carbon Dioxide 21 L BUN 38 H Creatinine Glucose 121 H POC Glucose 130 H Calcium Magnesium AST ALT Alkaline Phosphatase Total Creatine Kinase NT-Pro-B Natriuret Pep Albumin Urine WBC (Auto) Crossmatch 11/17/18 11/17/18 11/18/18 12:17 16:48 06:00 WBC RBC Hgb Hct MCV MCH MCHC RDW Plt Count Lymph % (Auto) [place] % (Auto) Eos % (Auto) Lymph # [place] # Eos # Seg Neutrophils % Seg Neutrophils # PT INR POC ABG pH POC ABG pCO2 POC ABG pO2 VBG pH Sodium Potassium Chloride Carbon Dioxide BUN Creatinine Glucose POC Glucose 140 H 120 H 137 H Calcium Magnesium AST ALT Alkaline Phosphatase Total Creatine Kinase NT-Pro-B Natriuret Pep Albumin Urine WBC (Auto) Crossmatch 11/19/18 11/19/18 11/19/18 00:20 05:35 06:11 WBC RBC Hgb Hct MCV MCH MCHC RDW Plt Count Lymph % (Auto) [place] % (Auto) Eos % (Auto) Lymph # [place] # Eos # Seg Neutrophils % Seg Neutrophils # PT INR POC ABG pH POC ABG pCO2 POC ABG pO2 VBG pH Sodium Potassium Chloride Carbon Dioxide BUN Creatinine Glucose POC Glucose 111 H 126 H Calcium Magnesium AST ALT Alkaline Phosphatase Total Creatine Kinase 53 L NT-Pro-B Natriuret Pep Albumin Urine WBC (Auto) Crossmatch 11/19/18 11/19/18 11/20/18 11:37 23:43 06:52 WBC RBC Hgb Hct MCV MCH MCHC RDW Plt Count Lymph % (Auto) [place] % (Auto) Eos % (Auto) Lymph # [place] # Eos # Seg Neutrophils % Seg Neutrophils # PT INR POC ABG pH POC ABG pCO2 POC ABG pO2 VBG pH Sodium Potassium Chloride Carbon Dioxide BUN Creatinine Glucose POC Glucose 139 H 145 H 125 H Calcium Magnesium AST ALT Alkaline Phosphatase Total Creatine Kinase NT-Pro-B Natriuret Pep Albumin Urine WBC (Auto) Crossmatch 11/20/18 11/20/18 11/20/18 09:55 09:55 11:49 WBC RBC 3.04 L Hgb 8.4 L Hct 26.1 L MCV MCH MCHC RDW 17.5 H Plt Count Lymph % (Auto) [place] % (Auto) Eos % (Auto) Lymph # [place] # Eos # Seg Neutrophils % Seg Neutrophils # PT INR POC ABG pH POC ABG pCO2 POC ABG pO2 VBG pH Sodium 149 H Potassium Chloride 114.5 H Carbon Dioxide 21 L BUN 35 H Creatinine Glucose 127 H POC Glucose 150 H Calcium Magnesium AST ALT Alkaline Phosphatase Total Creatine Kinase NT-Pro-B Natriuret Pep Albumin Urine WBC (Auto) Crossmatch 11/20/18 11/20/18 11/21/18 18:02 23:49 06:14 WBC RBC Hgb Hct MCV MCH MCHC RDW Plt Count Lymph % (Auto) [place] % (Auto) Eos % (Auto) Lymph # [place] # Eos # Seg Neutrophils % Seg Neutrophils # PT INR POC ABG pH POC ABG pCO2 POC ABG pO2 VBG pH Sodium Potassium Chloride Carbon Dioxide BUN Creatinine Glucose POC Glucose 131 H 137 H 133 H Calcium Magnesium AST ALT Alkaline Phosphatase Total Creatine Kinase NT-Pro-B Natriuret Pep Albumin Urine WBC (Auto) Crossmatch 11/21/18 11/21/18 11/21/18 10:00 12:09 18:04 WBC RBC Hgb Hct MCV MCH MCHC RDW Plt Count Lymph % (Auto) [place] % (Auto) Eos % (Auto) Lymph # [place] # Eos # Seg Neutrophils % Seg Neutrophils # PT INR POC ABG pH POC ABG pCO2 POC ABG pO2 VBG pH Sodium Potassium Chloride 110.6 H Carbon Dioxide BUN 31 H Creatinine Glucose 119 H POC Glucose 116 H 126 H Calcium Magnesium AST ALT Alkaline Phosphatase Total Creatine Kinase NT-Pro-B Natriuret Pep Albumin Urine WBC (Auto) Crossmatch 11/22/18 11/22/18 11/22/18 00:14 05:47 06:23 WBC RBC Hgb Hct MCV MCH MCHC RDW Plt Count Lymph % (Auto) [place] % (Auto) Eos % (Auto) Lymph # [place] # Eos # Seg Neutrophils % Seg Neutrophils # PT INR POC ABG pH POC ABG pCO2 POC ABG pO2 VBG pH Sodium Potassium Chloride 107.6 H Carbon Dioxide BUN 32 H Creatinine 0.7 L Glucose 116 H POC Glucose 122 H 119 H Calcium Magnesium AST ALT Alkaline Phosphatase Total Creatine Kinase NT-Pro-B Natriuret Pep Albumin Urine WBC (Auto) Crossmatch 11/22/18 11/22/18 11/22/18 08:40 12:19 17:39 WBC RBC Hgb Hct MCV MCH MCHC RDW Plt Count Lymph % (Auto) [place] % (Auto) Eos % (Auto) Lymph # [place] # Eos # Seg Neutrophils % Seg Neutrophils # PT INR POC ABG pH POC ABG pCO2 POC ABG pO2 VBG pH Sodium Potassium Chloride Carbon Dioxide BUN Creatinine Glucose POC Glucose 150 H 111 H 108 H Calcium Magnesium AST ALT Alkaline Phosphatase Total Creatine Kinase NT-Pro-B Natriuret Pep Albumin Urine WBC (Auto) Crossmatch 11/23/18 11/23/18 11/23/18 00:36 05:37 05:56 WBC RBC Hgb Hct MCV MCH MCHC RDW Plt Count Lymph % (Auto) [place] % (Auto) Eos % (Auto) Lymph # [place] # Eos # Seg Neutrophils % Seg Neutrophils # PT INR POC ABG pH POC ABG pCO2 POC ABG pO2 VBG pH Sodium 136 L Potassium Chloride Carbon Dioxide BUN 30 H Creatinine 0.7 L Glucose 103 H POC Glucose 125 H 122 H Calcium Magnesium 2.50 H AST ALT Alkaline Phosphatase Total Creatine Kinase NT-Pro-B Natriuret Pep Albumin Urine WBC (Auto) Crossmatch 11/23/18 11/23/18 11/23/18 11:56 17:39 23:40 WBC RBC Hgb Hct MCV MCH MCHC RDW Plt Count Lymph % (Auto) [place] % (Auto) Eos % (Auto) Lymph # [place] # Eos # Seg Neutrophils % Seg Neutrophils # PT INR POC ABG pH POC ABG pCO2 POC ABG pO2 VBG pH Sodium Potassium Chloride Carbon Dioxide BUN Creatinine Glucose POC Glucose 121 H 113 H 117 H Calcium Magnesium AST ALT Alkaline Phosphatase Total Creatine Kinase NT-Pro-B Natriuret Pep Albumin Urine WBC (Auto) Crossmatch 11/24/18 11/24/18 11/24/18 05:13 12:00 18:13 WBC RBC Hgb Hct MCV MCH MCHC RDW Plt Count Lymph % (Auto) [place] % (Auto) Eos % (Auto) Lymph # [place] # Eos # Seg Neutrophils % Seg Neutrophils # PT INR POC ABG pH POC ABG pCO2 POC ABG pO2 VBG pH Sodium Potassium Chloride Carbon Dioxide BUN Creatinine Glucose POC Glucose 143 H 123 H 124 H Calcium Magnesium AST ALT Alkaline Phosphatase Total Creatine Kinase NT-Pro-B Natriuret Pep Albumin Urine WBC (Auto) Crossmatch 11/24/18 11/25/18 11/25/18 23:34 05:25 05:25 WBC RBC 2.48 L Hgb 6.8 L Hct 21.2 L MCV MCH MCHC RDW 17.7 H Plt Count Lymph % (Auto) [place] % (Auto) Eos % (Auto) Lymph # [place] # Eos # Seg Neutrophils % Seg Neutrophils # PT INR POC ABG pH POC ABG pCO2 POC ABG pO2 VBG pH Sodium Potassium Chloride 108.8 H Carbon Dioxide BUN 30 H Creatinine 0.7 L Glucose 112 H POC Glucose 115 H Calcium Magnesium AST ALT Alkaline Phosphatase Total Creatine Kinase NT-Pro-B Natriuret Pep Albumin Urine WBC (Auto) Crossmatch 11/25/18 11/25/18 11/25/18 06:46 11:15 11:28 WBC RBC Hgb 7.4 L Hct 23.0 L MCV MCH MCHC RDW Plt Count Lymph % (Auto) [place] % (Auto) Eos % (Auto) Lymph # [place] # Eos # Seg Neutrophils % Seg Neutrophils # PT INR POC ABG pH POC ABG pCO2 POC ABG pO2 VBG pH Sodium Potassium Chloride Carbon Dioxide BUN Creatinine Glucose POC Glucose 133 H 127 H Calcium Magnesium AST ALT Alkaline Phosphatase Total Creatine Kinase NT-Pro-B Natriuret Pep Albumin Urine WBC (Auto) Crossmatch 11/25/18 11/25/18 11/25/18 15:28 17:32 23:45 WBC RBC Hgb Hct MCV MCH MCHC RDW Plt Count Lymph % (Auto) [place] % (Auto) Eos % (Auto) Lymph # [place] # Eos # Seg Neutrophils % Seg Neutrophils # PT INR POC ABG pH POC ABG pCO2 POC ABG pO2 VBG pH Sodium Potassium Chloride Carbon Dioxide BUN Creatinine Glucose POC Glucose 115 H 130 H Calcium Magnesium AST ALT Alkaline Phosphatase Total Creatine Kinase NT-Pro-B Natriuret Pep Albumin Urine WBC (Auto) Crossmatch See Detail 11/26/18 11/26/18 11/26/18 06:13 06:20 06:20 WBC RBC 2.76 L Hgb 7.7 L Hct 23.4 L MCV MCH MCHC RDW 17.5 H Plt Count Lymph % (Auto) [place] % (Auto) Eos % (Auto) Lymph # [place] # Eos # Seg Neutrophils % Seg Neutrophils # PT INR POC ABG pH POC ABG pCO2 POC ABG pO2 VBG pH Sodium Potassium Chloride 109.9 H Carbon Dioxide BUN 30 H Creatinine 0.6 L Glucose 121 H POC Glucose 129 H Calcium Magnesium AST ALT Alkaline Phosphatase Total Creatine Kinase NT-Pro-B Natriuret Pep Albumin Urine WBC (Auto) Crossmatch 11/26/18 11/26/18 11/27/18 12:06 16:35 06:04 WBC RBC Hgb Hct MCV MCH MCHC RDW Plt Count Lymph % (Auto) [place] % (Auto) Eos % (Auto) Lymph # [place] # Eos # Seg Neutrophils % Seg Neutrophils # PT INR POC ABG pH POC ABG pCO2 POC ABG pO2 VBG pH Sodium Potassium Chloride Carbon Dioxide BUN Creatinine Glucose POC Glucose 139 H 107 H 126 H Calcium Magnesium AST ALT Alkaline Phosphatase Total Creatine Kinase NT-Pro-B Natriuret Pep Albumin Urine WBC (Auto) Crossmatch 11/27/18 11/27/18 11/28/18 13:14 17:47 07:03 WBC RBC Hgb Hct MCV MCH MCHC RDW Plt Count Lymph % (Auto) [place] % (Auto) Eos % (Auto) Lymph # [place] # Eos # Seg Neutrophils % Seg Neutrophils # PT INR POC ABG pH POC ABG pCO2 POC ABG pO2 VBG pH Sodium Potassium Chloride Carbon Dioxide BUN Creatinine Glucose POC Glucose 130 H 115 H 118 H Calcium Magnesium AST ALT Alkaline Phosphatase Total Creatine Kinase NT-Pro-B Natriuret Pep Albumin Urine WBC (Auto) Crossmatch 11/28/18 11/29/18 11/29/18 11:38 00:35 04:56 WBC RBC Hgb Hct MCV MCH MCHC RDW Plt Count Lymph % (Auto) [place] % (Auto) Eos % (Auto) Lymph # [place] # Eos # Seg Neutrophils % Seg Neutrophils # PT INR POC ABG pH POC ABG pCO2 POC ABG pO2 VBG pH Sodium Potassium Chloride Carbon Dioxide BUN Creatinine Glucose POC Glucose 126 H 107 H Calcium Magnesium AST ALT Alkaline Phosphatase Total Creatine Kinase 50 L NT-Pro-B Natriuret Pep Albumin Urine WBC (Auto) Crossmatch 11/29/18 11/29/18 11/29/18 05:49 11:46 18:17 WBC RBC Hgb Hct MCV MCH MCHC RDW Plt Count Lymph % (Auto) [place] % (Auto) Eos % (Auto) Lymph # [place] # Eos # Seg Neutrophils % Seg Neutrophils # PT INR POC ABG pH POC ABG pCO2 POC ABG pO2 VBG pH Sodium Potassium Chloride Carbon Dioxide BUN Creatinine Glucose POC Glucose 128 H 140 H 115 H Calcium Magnesium AST ALT Alkaline Phosphatase Total Creatine Kinase NT-Pro-B Natriuret Pep Albumin Urine WBC (Auto) Crossmatch 11/30/18 11/30/18 11/30/18 00:00 03:30 03:30 WBC RBC 2.97 L Hgb 8.1 L Hct 25.5 L MCV MCH 27 L MCHC RDW 17.7 H Plt Count Lymph % (Auto) 9.2 L [place] % (Auto) 10.0 H Eos % (Auto) 4.6 H Lymph # 1.0 L [place] # 1.1 H Eos # 0.5 H Seg Neutrophils % 75.6 H Seg Neutrophils # 8.4 H PT INR POC ABG pH POC ABG pCO2 POC ABG pO2 VBG pH Sodium Potassium Chloride Carbon Dioxide BUN 31 H Creatinine 0.7 L Glucose POC Glucose 120 H Calcium Magnesium AST ALT Alkaline Phosphatase Total Creatine Kinase NT-Pro-B Natriuret Pep Albumin Urine WBC (Auto) Crossmatch 11/30/18 11/30/18 11/30/18 06:54 11:45 16:59 WBC RBC Hgb Hct MCV MCH MCHC RDW Plt Count Lymph % (Auto) [place] % (Auto) Eos % (Auto) Lymph # [place] # Eos # Seg Neutrophils % Seg Neutrophils # PT INR POC ABG pH POC ABG pCO2 POC ABG pO2 VBG pH Sodium Potassium Chloride Carbon Dioxide BUN Creatinine Glucose POC Glucose 120 H 123 H 111 H Calcium Magnesium AST ALT Alkaline Phosphatase Total Creatine Kinase NT-Pro-B Natriuret Pep Albumin Urine WBC (Auto) Crossmatch 12/01/18 12/01/18 12/01/18 00:20 05:58 11:33 WBC RBC Hgb Hct MCV MCH MCHC RDW Plt Count Lymph % (Auto) [place] % (Auto) Eos % (Auto) Lymph # [place] # Eos # Seg Neutrophils % Seg Neutrophils # PT INR POC ABG pH POC ABG pCO2 POC ABG pO2 VBG pH Sodium Potassium Chloride Carbon Dioxide BUN Creatinine Glucose POC Glucose 113 H 127 H 138 H Calcium Magnesium AST ALT Alkaline Phosphatase Total Creatine Kinase NT-Pro-B Natriuret Pep Albumin Urine WBC (Auto) Crossmatch 12/02/18 12/03/18 12/03/18 00:33 05:07 05:07 WBC RBC 2.93 L Hgb 8.2 L Hct 24.9 L MCV MCH MCHC RDW 17.0 H Plt Count 470 H Lymph % (Auto) 9.3 L [place] % (Auto) 8.6 H Eos % (Auto) 5.4 H Lymph # 0.9 L [place] # Eos # 0.5 H Seg Neutrophils % 75.8 H Seg Neutrophils # PT INR POC ABG pH POC ABG pCO2 POC ABG pO2 VBG pH Sodium Potassium Chloride Carbon Dioxide BUN 30 H Creatinine 0.6 L Glucose 115 H POC Glucose 110 H Calcium Magnesium AST ALT Alkaline Phosphatase Total Creatine Kinase NT-Pro-B Natriuret Pep Albumin Urine WBC (Auto) Crossmatch 12/03/18 12/03/18 12/03/18 05:58 11:49 17:44 WBC RBC Hgb Hct MCV MCH MCHC RDW Plt Count Lymph % (Auto) [place] % (Auto) Eos % (Auto) Lymph # [place] # Eos # Seg Neutrophils % Seg Neutrophils # PT INR POC ABG pH POC ABG pCO2 POC ABG pO2 VBG pH Sodium Potassium Chloride Carbon Dioxide BUN Creatinine Glucose POC Glucose 127 H 138 H 127 H Calcium Magnesium AST ALT Alkaline Phosphatase Total Creatine Kinase NT-Pro-B Natriuret Pep Albumin Urine WBC (Auto) Crossmatch 12/05/18 12/05/18 12/05/18 00:22 05:53 17:18 WBC RBC Hgb Hct MCV MCH MCHC RDW Plt Count Lymph % (Auto) [place] % (Auto) Eos % (Auto) Lymph # [place] # Eos # Seg Neutrophils % Seg Neutrophils # PT INR POC ABG pH POC ABG pCO2 POC ABG pO2 VBG pH Sodium Potassium Chloride Carbon Dioxide BUN Creatinine Glucose POC Glucose 124 H 121 H 112 H Calcium Magnesium AST ALT Alkaline Phosphatase Total Creatine Kinase NT-Pro-B Natriuret Pep Albumin Urine WBC (Auto) Crossmatch 12/06/18 12/06/18 12/06/18 00:07 06:16 11:43 WBC RBC Hgb Hct MCV MCH MCHC RDW Plt Count Lymph % (Auto) [place] % (Auto) Eos % (Auto) Lymph # [place] # Eos # Seg Neutrophils % Seg Neutrophils # PT INR POC ABG pH POC ABG pCO2 POC ABG pO2 VBG pH Sodium Potassium Chloride Carbon Dioxide BUN Creatinine Glucose POC Glucose 111 H 117 H 121 H Calcium Magnesium AST ALT Alkaline Phosphatase Total Creatine Kinase NT-Pro-B Natriuret Pep Albumin Urine WBC (Auto) Crossmatch 12/06/18 12/07/18 12/07/18 20:57 06:41 12:09 WBC RBC Hgb Hct MCV MCH MCHC RDW Plt Count Lymph % (Auto) [place] % (Auto) Eos % (Auto) Lymph # [place] # Eos # Seg Neutrophils % Seg Neutrophils # PT INR POC ABG pH POC ABG pCO2 POC ABG pO2 VBG pH Sodium Potassium Chloride 107.2 H Carbon Dioxide BUN 27 H Creatinine 0.7 L Glucose POC Glucose 128 H 137 H Calcium Magnesium 2.50 H AST ALT Alkaline Phosphatase Total Creatine Kinase NT-Pro-B Natriuret Pep Albumin Urine WBC (Auto) Crossmatch 12/07/18 12/08/18 12/08/18 19:29 05:44 12:27 WBC RBC Hgb Hct MCV MCH MCHC RDW Plt Count Lymph % (Auto) [place] % (Auto) Eos % (Auto) Lymph # [place] # Eos # Seg Neutrophils % Seg Neutrophils # PT INR POC ABG pH POC ABG pCO2 POC ABG pO2 VBG pH Sodium Potassium Chloride Carbon Dioxide BUN Creatinine Glucose POC Glucose 110 H 126 H 130 H Calcium Magnesium AST ALT Alkaline Phosphatase Total Creatine Kinase NT-Pro-B Natriuret Pep Albumin Urine WBC (Auto) Crossmatch 12/08/18 12/09/18 12/09/18 17:44 00:20 06:42 WBC RBC Hgb Hct MCV MCH MCHC RDW Plt Count Lymph % (Auto) [place] % (Auto) Eos % (Auto) Lymph # [place] # Eos # Seg Neutrophils % Seg Neutrophils # PT INR POC ABG pH POC ABG pCO2 POC ABG pO2 VBG pH Sodium Potassium Chloride Carbon Dioxide BUN Creatinine Glucose POC Glucose 113 H 121 H 124 H Calcium Magnesium AST ALT Alkaline Phosphatase Total Creatine Kinase NT-Pro-B Natriuret Pep Albumin Urine WBC (Auto) Crossmatch 12/09/18 12/09/18 12/09/18 12:24 18:41 23:48 WBC RBC Hgb Hct MCV MCH MCHC RDW Plt Count Lymph % (Auto) [place] % (Auto) Eos % (Auto) Lymph # [place] # Eos # Seg Neutrophils % Seg Neutrophils # PT INR POC ABG pH POC ABG pCO2 POC ABG pO2 VBG pH Sodium Potassium Chloride Carbon Dioxide BUN Creatinine Glucose POC Glucose 114 H 109 H 128 H Calcium Magnesium AST ALT Alkaline Phosphatase Total Creatine Kinase NT-Pro-B Natriuret Pep Albumin Urine WBC (Auto) Crossmatch 12/10/18 12/10/18 12/11/18 07:07 11:28 00:24 WBC RBC Hgb Hct MCV MCH MCHC RDW Plt Count Lymph % (Auto) [place] % (Auto) Eos % (Auto) Lymph # [place] # Eos # Seg Neutrophils % Seg Neutrophils # PT INR POC ABG pH POC ABG pCO2 POC ABG pO2 VBG pH Sodium Potassium Chloride Carbon Dioxide BUN Creatinine Glucose POC Glucose 111 H 110 H 112 H Calcium Magnesium AST ALT Alkaline Phosphatase Total Creatine Kinase NT-Pro-B Natriuret Pep Albumin Urine WBC (Auto) Crossmatch 12/11/18 12/11/18 12/11/18 06:44 11:53 18:17 WBC RBC Hgb Hct MCV MCH MCHC RDW Plt Count Lymph % (Auto) [place] % (Auto) Eos % (Auto) Lymph # [place] # Eos # Seg Neutrophils % Seg Neutrophils # PT INR POC ABG pH POC ABG pCO2 POC ABG pO2 VBG pH Sodium Potassium Chloride Carbon Dioxide BUN Creatinine Glucose POC Glucose 111 H 132 H 133 H Calcium Magnesium AST ALT Alkaline Phosphatase Total Creatine Kinase NT-Pro-B Natriuret Pep Albumin Urine WBC (Auto) Crossmatch 12/11/18 12/12/18 12/12/18 23:58 00:05 06:11 WBC RBC 2.85 L Hgb 7.8 L Hct 24.4 L MCV MCH 27 L MCHC RDW 17.4 H Plt Count 459 H Lymph % (Auto) [place] % (Auto) 11.2 H Eos % (Auto) 5.4 H Lymph # [place] # 1.1 H Eos # 0.5 H Seg Neutrophils % Seg Neutrophils # PT INR POC ABG pH POC ABG pCO2 POC ABG pO2 VBG pH Sodium Potassium Chloride Carbon Dioxide BUN Creatinine Glucose POC Glucose 126 H 144 H Calcium Magnesium AST ALT Alkaline Phosphatase Total Creatine Kinase NT-Pro-B Natriuret Pep Albumin Urine WBC (Auto) Crossmatch 12/12/18 12/12/18 12/13/18 11:42 18:36 00:12 WBC RBC Hgb Hct MCV MCH MCHC RDW Plt Count Lymph % (Auto) [place] % (Auto) Eos % (Auto) Lymph # [place] # Eos # Seg Neutrophils % Seg Neutrophils # PT INR POC ABG pH POC ABG pCO2 POC ABG pO2 VBG pH Sodium Potassium Chloride Carbon Dioxide BUN Creatinine Glucose POC Glucose 106 H 117 H 115 H Calcium Magnesium AST ALT Alkaline Phosphatase Total Creatine Kinase NT-Pro-B Natriuret Pep Albumin Urine WBC (Auto) Crossmatch 12/13/18 12/13/18 12/13/18 05:58 11:52 23:57 WBC RBC Hgb Hct MCV MCH MCHC RDW Plt Count Lymph % (Auto) [place] % (Auto) Eos % (Auto) Lymph # [place] # Eos # Seg Neutrophils % Seg Neutrophils # PT INR POC ABG pH POC ABG pCO2 POC ABG pO2 VBG pH Sodium Potassium Chloride Carbon Dioxide BUN Creatinine Glucose POC Glucose 122 H 129 H 125 H Calcium Magnesium AST ALT Alkaline Phosphatase Total Creatine Kinase NT-Pro-B Natriuret Pep Albumin Urine WBC (Auto) Crossmatch 12/14/18 12/14/18 12/14/18 04:44 04:44 05:44 WBC RBC 2.56 L Hgb 7.2 L Hct 22.1 L MCV MCH MCHC RDW 17.8 H Plt Count 473 H Lymph % (Auto) [place] % (Auto) 11.5 H Eos % (Auto) 4.8 H Lymph # [place] # 1.1 H Eos # Seg Neutrophils % Seg Neutrophils # PT INR POC ABG pH POC ABG pCO2 POC ABG pO2 VBG pH Sodium 151 H Potassium Chloride 116.7 H Carbon Dioxide BUN 40 H Creatinine Glucose 114 H POC Glucose 117 H Calcium Magnesium AST 80 H ALT 67 H Alkaline Phosphatase 247 H Total Creatine Kinase NT-Pro-B Natriuret Pep Albumin 1.9 L Urine WBC (Auto) Crossmatch 12/14/18 12/15/18 12/15/18 11:29 00:01 05:13 WBC RBC 2.68 L Hgb 7.4 L Hct 23.1 L MCV MCH MCHC RDW 17.6 H Plt Count 454 H Lymph % (Auto) 13.3 L [place] % (Auto) 9.7 H Eos % (Auto) 6.9 H Lymph # [place] # Eos # 0.6 H Seg Neutrophils % Seg Neutrophils # PT INR POC ABG pH POC ABG pCO2 POC ABG pO2 VBG pH Sodium Potassium Chloride Carbon Dioxide BUN Creatinine Glucose POC Glucose 115 H 113 H Calcium Magnesium AST ALT Alkaline Phosphatase Total Creatine Kinase NT-Pro-B Natriuret Pep Albumin Urine WBC (Auto) Crossmatch 12/15/18 12/15/18 12/15/18 05:13 06:31 11:31 WBC RBC Hgb Hct MCV MCH MCHC RDW Plt Count Lymph % (Auto) [place] % (Auto) Eos % (Auto) Lymph # [place] # Eos # Seg Neutrophils % Seg Neutrophils # PT INR POC ABG pH POC ABG pCO2 POC ABG pO2 VBG pH Sodium 151 H Potassium Chloride 116.4 H Carbon Dioxide BUN 39 H Creatinine Glucose 110 H POC Glucose 130 H 127 H Calcium Magnesium AST 85 H ALT 78 H Alkaline Phosphatase 255 H Total Creatine Kinase NT-Pro-B Natriuret Pep Albumin 1.9 L Urine WBC (Auto) Crossmatch 12/15/18 12/16/18 12/16/18 17:54 00:27 00:33 WBC RBC Hgb Hct MCV MCH MCHC RDW Plt Count Lymph % (Auto) [place] % (Auto) Eos % (Auto) Lymph # [place] # Eos # Seg Neutrophils % Seg Neutrophils # PT INR POC ABG pH POC ABG pCO2 POC ABG pO2 VBG pH Sodium Potassium Chloride Carbon Dioxide BUN Creatinine Glucose POC Glucose 122 H 131 H Calcium Magnesium AST ALT Alkaline Phosphatase Total Creatine Kinase 50 L NT-Pro-B Natriuret Pep Albumin Urine WBC (Auto) Crossmatch 12/16/18 12/16/18 12/16/18 05:31 11:31 17:22 WBC RBC Hgb Hct MCV MCH MCHC RDW Plt Count Lymph % (Auto) [place] % (Auto) Eos % (Auto) Lymph # [place] # Eos # Seg Neutrophils % Seg Neutrophils # PT INR POC ABG pH POC ABG pCO2 POC ABG pO2 VBG pH Sodium Potassium Chloride Carbon Dioxide BUN Creatinine Glucose POC Glucose 138 H 121 H 114 H Calcium Magnesium AST ALT Alkaline Phosphatase Total Creatine Kinase NT-Pro-B Natriuret Pep Albumin Urine WBC (Auto) Crossmatch 12/16/18 12/17/18 12/17/18 23:56 05:01 05:01 WBC 11.1 H RBC 2.96 L Hgb 7.9 L Hct 25.7 L MCV MCH 27 L MCHC 31 L RDW 17.9 H Plt Count 479 H Lymph % (Auto) 11.3 L [place] % (Auto) 7.5 H Eos % (Auto) 4.5 H Lymph # [place] # Eos # 0.5 H Seg Neutrophils % 75.9 H Seg Neutrophils # 8.4 H PT INR POC ABG pH POC ABG pCO2 POC ABG pO2 VBG pH Sodium 155 H Potassium Chloride 121.2 H Carbon Dioxide BUN 41 H Creatinine Glucose 122 H POC Glucose 137 H Calcium Magnesium AST 97 H ALT 99 H Alkaline Phosphatase 279 H Total Creatine Kinase NT-Pro-B Natriuret Pep Albumin 1.8 L Urine WBC (Auto) Crossmatch 12/17/18 12/17/18 12/18/18 11:52 18:17 00:17 WBC RBC Hgb Hct MCV MCH MCHC RDW Plt Count Lymph % (Auto) [place] % (Auto) Eos % (Auto) Lymph # [place] # Eos # Seg Neutrophils % Seg Neutrophils # PT INR POC ABG pH POC ABG pCO2 POC ABG pO2 VBG pH Sodium Potassium Chloride Carbon Dioxide BUN Creatinine Glucose POC Glucose 142 H 140 H 160 H Calcium Magnesium AST ALT Alkaline Phosphatase Total Creatine Kinase NT-Pro-B Natriuret Pep Albumin Urine WBC (Auto) Crossmatch 12/18/18 12/18/18 12/18/18 05:39 05:40 05:40 WBC 11.7 H RBC 2.76 L Hgb 7.5 L Hct 23.8 L MCV MCH 27 L MCHC 31 L RDW 17.8 H Plt Count Lymph % (Auto) [place] % (Auto) Eos % (Auto) Lymph # [place] # Eos # Seg Neutrophils % Seg Neutrophils # PT INR POC ABG pH POC ABG pCO2 POC ABG pO2 VBG pH Sodium 153 H Potassium Chloride 117.6 H Carbon Dioxide BUN 48 H Creatinine Glucose 122 H POC Glucose 138 H Calcium Magnesium AST ALT Alkaline Phosphatase Total Creatine Kinase NT-Pro-B Natriuret Pep Albumin Urine WBC (Auto) Crossmatch 12/18/18 12/18/18 12/19/18 11:32 17:26 00:38 WBC RBC Hgb Hct MCV MCH MCHC RDW Plt Count Lymph % (Auto) [place] % (Auto) Eos % (Auto) Lymph # [place] # Eos # Seg Neutrophils % Seg Neutrophils # PT INR POC ABG pH POC ABG pCO2 POC ABG pO2 VBG pH Sodium Potassium Chloride Carbon Dioxide BUN Creatinine Glucose POC Glucose 136 H 125 H 126 H Calcium Magnesium AST ALT Alkaline Phosphatase Total Creatine Kinase NT-Pro-B Natriuret Pep Albumin Urine WBC (Auto) Crossmatch 12/19/18 12/19/18 12/19/18 05:22 05:22 06:19 WBC 12.2 H RBC 2.86 L Hgb 7.6 L Hct 24.4 L MCV MCH 27 L MCHC 31 L RDW 17.8 H Plt Count Lymph % (Auto) [place] % (Auto) Eos % (Auto) Lymph # [place] # Eos # Seg Neutrophils % Seg Neutrophils # PT INR POC ABG pH POC ABG pCO2 POC ABG pO2 VBG pH Sodium Potassium 5.9 H D Chloride 109.7 H Carbon Dioxide BUN 45 H Creatinine Glucose 107 H POC Glucose 136 H Calcium 8.3 L Magnesium AST ALT Alkaline Phosphatase Total Creatine Kinase NT-Pro-B Natriuret Pep Albumin Urine WBC (Auto) Crossmatch 12/19/18 12/19/18 12/19/18 08:23 11:44 17:09 WBC RBC Hgb Hct MCV MCH MCHC RDW Plt Count Lymph % (Auto) [place] % (Auto) Eos % (Auto) Lymph # [place] # Eos # Seg Neutrophils % Seg Neutrophils # PT INR POC ABG pH POC ABG pCO2 POC ABG pO2 VBG pH Sodium Potassium Chloride 107.7 H Carbon Dioxide BUN 42 H Creatinine Glucose 118 H POC Glucose 130 H 118 H Calcium Magnesium AST ALT Alkaline Phosphatase Total Creatine Kinase NT-Pro-B Natriuret Pep Albumin Urine WBC (Auto) Crossmatch 12/19/18 12/20/18 12/20/18 23:59 05:52 06:24 WBC RBC Hgb Hct MCV MCH MCHC RDW Plt Count Lymph % (Auto) [place] % (Auto) Eos % (Auto) Lymph # [place] # Eos # Seg Neutrophils % Seg Neutrophils # PT INR POC ABG pH POC ABG pCO2 POC ABG pO2 VBG pH Sodium Potassium 5.2 H Chloride 107.2 H Carbon Dioxide 21 L BUN 44 H Creatinine Glucose 118 H POC Glucose 150 H 138 H Calcium Magnesium AST ALT Alkaline Phosphatase Total Creatine Kinase NT-Pro-B Natriuret Pep Albumin Urine WBC (Auto) Crossmatch 12/20/18 12/20/18 12/21/18 11:34 17:10 00:07 WBC RBC Hgb Hct MCV MCH MCHC RDW Plt Count Lymph % (Auto) [place] % (Auto) Eos % (Auto) Lymph # [place] # Eos # Seg Neutrophils % Seg Neutrophils # PT INR POC ABG pH POC ABG pCO2 POC ABG pO2 VBG pH Sodium Potassium Chloride Carbon Dioxide BUN Creatinine Glucose POC Glucose 134 H 141 H 145 H Calcium Magnesium AST ALT Alkaline Phosphatase Total Creatine Kinase NT-Pro-B Natriuret Pep Albumin Urine WBC (Auto) Crossmatch 12/21/18 12/21/18 12/21/18 05:37 05:37 06:58 WBC 12.3 H RBC 2.67 L Hgb 7.1 L Hct 22.4 L MCV MCH 27 L MCHC RDW 17.5 H Plt Count Lymph % (Auto) [place] % (Auto) Eos % (Auto) Lymph # [place] # Eos # Seg Neutrophils % Seg Neutrophils # PT INR POC ABG pH POC ABG pCO2 POC ABG pO2 VBG pH Sodium Potassium Chloride Carbon Dioxide BUN 42 H Creatinine Glucose 127 H POC Glucose 152 H Calcium Magnesium AST ALT Alkaline Phosphatase Total Creatine Kinase NT-Pro-B Natriuret Pep Albumin Urine WBC (Auto) Crossmatch 12/21/18 12/21/1819 12:06 17:43 00:11 WBC RBC Hgb Hct MCV MCH MCHC RDW Plt Count Lymph % (Auto) [place] % (Auto) Eos % (Auto) Lymph # [place] # Eos # Seg Neutrophils % Seg Neutrophils # PT INR POC ABG pH POC ABG pCO2 POC ABG pO2 VBG pH Sodium Potassium Chloride Carbon Dioxide BUN Creatinine Glucose POC Glucose 140 H 122 H 128 H Calcium Magnesium AST ALT Alkaline Phosphatase Total Creatine Kinase NT-Pro-B Natriuret Pep Albumin Urine WBC (Auto) Crossmatch 12/22/18 12/22/18 12/22/18 05:42 05:42 06:35 WBC 12.8 H RBC 2.82 L Hgb 7.5 L Hct 23.4 L MCV 83 L MCH 27 L MCHC RDW 17.2 H Plt Count Lymph % (Auto) [place] % (Auto) Eos % (Auto) Lymph # [place] # Eos # Seg Neutrophils % Seg Neutrophils # PT INR POC ABG pH POC ABG pCO2 POC ABG pO2 VBG pH Sodium Potassium Chloride Carbon Dioxide BUN 48 H Creatinine Glucose 115 H POC Glucose 120 H Calcium Magnesium AST ALT Alkaline Phosphatase Total Creatine Kinase NT-Pro-B Natriuret Pep Albumin Urine WBC (Auto) Crossmatch 12/22/18 12/22/18 12/23/18 11:30 18:30 00:02 WBC RBC Hgb Hct MCV MCH MCHC RDW Plt Count Lymph % (Auto) [place] % (Auto) Eos % (Auto) Lymph # [place] # Eos # Seg Neutrophils % Seg Neutrophils # PT INR POC ABG pH POC ABG pCO2 POC ABG pO2 VBG pH Sodium Potassium Chloride Carbon Dioxide BUN Creatinine Glucose POC Glucose 151 H 124 H 169 H Calcium Magnesium AST ALT Alkaline Phosphatase Total Creatine Kinase NT-Pro-B Natriuret Pep Albumin Urine WBC (Auto) Crossmatch 12/23/18 12/23/18 12/23/18 00:51 05:30 06:09 WBC RBC 2.91 L Hgb 7.7 L Hct 24.3 L MCV 83 L MCH 26 L MCHC RDW 17.4 H Plt Count Lymph % (Auto) [place] % (Auto) 12.3 H Eos % (Auto) Lymph # [place] # 1.4 H Eos # Seg Neutrophils % 70.7 H Seg Neutrophils # 7.8 H PT INR POC ABG pH POC ABG pCO2 POC ABG pO2 VBG pH Sodium Potassium Chloride Carbon Dioxide BUN 58 H Creatinine Glucose 121 H POC Glucose 146 H Calcium 7.8 L Magnesium AST ALT Alkaline Phosphatase Total Creatine Kinase NT-Pro-B Natriuret Pep Albumin Urine WBC (Auto) Crossmatch 12/23/18 12/23/18 12/24/18 11:34 17:36 00:24 WBC RBC Hgb Hct MCV MCH MCHC RDW Plt Count Lymph % (Auto) [place] % (Auto) Eos % (Auto) Lymph # [place] # Eos # Seg Neutrophils % Seg Neutrophils # PT INR POC ABG pH POC ABG pCO2 POC ABG pO2 VBG pH Sodium Potassium Chloride Carbon Dioxide BUN Creatinine Glucose POC Glucose 153 H 121 H 144 H Calcium Magnesium AST ALT Alkaline Phosphatase Total Creatine Kinase NT-Pro-B Natriuret Pep Albumin Urine WBC (Auto) Crossmatch 12/24/18 12/24/18 12/24/18 05:59 05:59 06:21 WBC RBC 2.41 L Hgb 6.5 L Hct 20.4 L MCV MCH 27 L MCHC RDW 17.8 H Plt Count Lymph % (Auto) [place] % (Auto) Eos % (Auto) Lymph # [place] # Eos # Seg Neutrophils % Seg Neutrophils # PT INR POC ABG pH POC ABG pCO2 POC ABG pO2 VBG pH Sodium Potassium 5.2 H Chloride Carbon Dioxide BUN 52 H Creatinine Glucose 114 H POC Glucose 140 H Calcium Magnesium AST ALT Alkaline Phosphatase Total Creatine Kinase NT-Pro-B Natriuret Pep Albumin Urine WBC (Auto) Crossmatch 12/24/18 12/24/18 12/24/18 10:27 11:49 18:05 WBC RBC Hgb Hct MCV MCH MCHC RDW Plt Count Lymph % (Auto) [place] % (Auto) Eos % (Auto) Lymph # [place] # Eos # Seg Neutrophils % Seg Neutrophils # PT INR POC ABG pH POC ABG pCO2 POC ABG pO2 VBG pH Sodium Potassium Chloride Carbon Dioxide BUN Creatinine Glucose POC Glucose 146 H 139 H Calcium Magnesium AST ALT Alkaline Phosphatase Total Creatine Kinase NT-Pro-B Natriuret Pep Albumin Urine WBC (Auto) Crossmatch See Detail 12/25/18 12/25/18 12/25/18 00:14 05:50 05:54 WBC RBC Hgb 7.9 L Hct 24.0 L MCV MCH MCHC RDW Plt Count Lymph % (Auto) [place] % (Auto) Eos % (Auto) Lymph # [place] # Eos # Seg Neutrophils % Seg Neutrophils # PT INR POC ABG pH POC ABG pCO2 POC ABG pO2 VBG pH Sodium Potassium Chloride Carbon Dioxide BUN Creatinine Glucose POC Glucose 160 H 137 H Calcium Magnesium AST ALT Alkaline Phosphatase Total Creatine Kinase NT-Pro-B Natriuret Pep Albumin Urine WBC (Auto) Crossmatch 12/25/18 12/25/18 12/26/18 11:39 16:56 00:03 WBC RBC Hgb Hct MCV MCH MCHC RDW Plt Count Lymph % (Auto) [place] % (Auto) Eos % (Auto) Lymph # [place] # Eos # Seg Neutrophils % Seg Neutrophils # PT INR POC ABG pH POC ABG pCO2 POC ABG pO2 VBG pH Sodium Potassium Chloride Carbon Dioxide BUN Creatinine Glucose POC Glucose 137 H 138 H 120 H Calcium Magnesium AST ALT Alkaline Phosphatase Total Creatine Kinase NT-Pro-B Natriuret Pep Albumin Urine WBC (Auto) Crossmatch 12/26/18 12/26/18 12/26/18 06:35 11:26 18:30 WBC RBC Hgb Hct MCV MCH MCHC RDW Plt Count Lymph % (Auto) [place] % (Auto) Eos % (Auto) Lymph # [place] # Eos # Seg Neutrophils % Seg Neutrophils # PT INR POC ABG pH POC ABG pCO2 POC ABG pO2 VBG pH Sodium Potassium Chloride Carbon Dioxide BUN Creatinine Glucose POC Glucose 134 H 147 H 118 H Calcium Magnesium AST ALT Alkaline Phosphatase Total Creatine Kinase NT-Pro-B Natriuret Pep Albumin Urine WBC (Auto) Crossmatch 12/26/18 12/27/18 12/27/18 23:56 04:23 04:23 WBC RBC 2.84 L Hgb 8.0 L Hct 24.0 L MCV MCH MCHC RDW 17.2 H Plt Count Lymph % (Auto) [place] % (Auto) Eos % (Auto) Lymph # [place] # Eos # Seg Neutrophils % Seg Neutrophils # PT INR POC ABG pH POC ABG pCO2 POC ABG pO2 VBG pH Sodium 136 L Potassium 5.3 H Chloride Carbon Dioxide BUN 43 H Creatinine Glucose 110 H POC Glucose 117 H Calcium Magnesium AST ALT Alkaline Phosphatase Total Creatine Kinase NT-Pro-B Natriuret Pep Albumin Urine WBC (Auto) Crossmatch 12/27/18 06:40 WBC RBC Hgb Hct MCV MCH MCHC RDW Plt Count Lymph % (Auto) [place] % (Auto) Eos % (Auto) Lymph # [place] # Eos # Seg Neutrophils % Seg Neutrophils # PT INR POC ABG pH POC ABG pCO2 POC ABG pO2 VBG pH Sodium Potassium Chloride Carbon Dioxide BUN Creatinine Glucose POC Glucose 113 H Calcium Magnesium AST ALT Alkaline Phosphatase Total Creatine Kinase NT-Pro-B Natriuret Pep Albumin Urine WBC (Auto) Crossmatch Chest x-ray: pending Allied health notes reviewed: nursing
--- NOTE | 2018-12-27 11:36 | Discharge Summary ---
Providers - Providers Date of Admission: 11/01/18 17:15 Attending physician: TRACEY ROTH MD 11/02/18 10:46 Consult to Physician [CONS] Routine Comment: Consulting Provider: PENNY IYER Physician Instructions: Reason For Exam: sepsis 11/02/18 11:11 Consult to Physician [CONS] Routine Comment: Consulting Provider: KASIA BAKER Physician Instructions: Reason For Exam: respiratory failure 11/03/18 09:03 Consult to Wound/ET Nurse [CONS] Routine Reason For Exam: wound eval 11/03/18 17:11 Consult to Dietitian/Nutrition [CONS] Routine Physician Instructions: Reason For Exam: Reason for Consult: Write/Manage Tube Feeding 11/03/18 17:12 Consult to Dietitian/Nutrition [CONS] Routine Physician Instructions: Assess nutrtn needs, initiate, modify, manage TF Reason For Exam: Reason for Consult: Write/Manage Tube Feeding Reason for Consult: Write/Manage Tube Feeding 11/04/18 11:40 Consult to Physician [CONS] Routine Comment: Consulting Provider: DAIN VARGAS Physician Instructions: Reason For Exam: obstructive uropathy 11/06/18 15:47 Consult to Case Management [CONS] Routine Services Needed at Discharge: Other Notified:: case management Additional Physician Instructions: [facility] ([facility] M [phone] O [phone] F [phone] OUTPATIENT PARENTERAL ANTIBIOTIC THERAPY ORDERS Diagnoses: Multiple infected decubitus ulcers Antimicrobial administration: daptomycin 400 mg IV q day for 6 weeks until 12/16/2018 Remove PICC line after last dose unless otherwise instructed. Lines: PICC Lab monitoring: CBC, BUN, Creatinine, ALT, AST, CK, CRP, ESR once a week preferly on Sunday morning. Please fax results to [phone] and call [phone] for critical lab results. Jacquie Jean Baptiste NP/Penny Wynne MD Date: 11/06/18 11/07/18 10:10 Consult to Physician [CONS] Routine Comment: Consulting Provider: LORI FINLEY Physician Instructions: Reason For Exam: hip joint infection 11/10/18 13:39 Consult to Ethics Committee [CONS] Routine Reason For Exam: incurable, futility of care 12/21/18 09:23 Consult to Physician [CONS] Routine Comment: called answ. serv./ jeremiah Consulting Provider: PENNY IYER Physician Instructions: Reason For Exam: re-consult for fever 12/25/18 09:46 Consult to Physician [CONS] Routine Comment: called office/ jeremiah Consulting Provider: FLORENCIO VICENTE Physician Instructions: Reason For Exam: malfunctioning tunnel catheter- Primary care [facility]: [facility] Hospitalization Reason for admission: sepsis Condition: Stable Hospital course: 68 YO Male Long Term Facility Resident as [facility] with HTN, CVA, Obstructive Uropathy, Diastolic CHF, Contracture, Sacral Decubitus Ulcers, CO, DM, OA, Seizure Disorder, COPD, Dementia, BPH presents to ED for evaluation. Pt is stuporous and unable to provide history. Pt history taken from ED Staff, EMS, and SNF Staff. As per staff, the patient was found to have respiratory distress upon evaluation. Pt found to have pulse oximetry in the 80's. EMS notified and patient subsequently transported to [facility] for further care and evaluation. Patient seen and evaluated in ED and found to have UTI, Sepsis, Encephalopathy as well as Acute Hypoxemic Respiratory Failure. patient has had a prolonged course, had completed antibiotics, was awaiting placement in isolation bed. hopwever he started having fever past few days, ID reconsulted and started Cefepime and Vancomycin 12/22/18 Physicians had Extensive discussion with family about patients poor prognosis surgery consulted, did debridement at bedside ID following, Continue isolation precautions Bright placed by Urology. Please do not remove Poor to grim prognosis per [facility] CONSULTANTS And should consider Hospice. FAMILY REFUSING ALL THERAPEUTIC OFFERS INCLUDING AMPUTATION Risk of continued ABX RESISTANCE DISCUSSED EXTENSIVELY WITH THE FAMILY 12/24- Low grade fever- expected. * Treated with abx and then discontinued following completion. 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 He needs to be on contact isolation. This cannot be cured with antibiotics. recommend palliative care/comfort care or hospice, family are not interested in that option. Completed daptomycin for 6 weeks completed 12/16/2018 Sepsis secondary to UTI, Infected decub on sacrum POA Sacral pressure ulcer -infected. POA s/p Debridement done by Dr Washington 12/19/18 with Amputation recommended and the daughter refused Hyperkalemia: Treated with kayxalate acute on chronic Respiratory failure ANEMIA of chronic disease * Transfused total 3 units PRBC. * Obstructive Uropathy -Indwelling bright catheter * oupatient exchange per urology by urology Seizure * Continue current therapy, seizure precautions. Severe Protein calorie Malnutrition -Continue supportive care by Labou[employer] BPH Continue Bright catheter Dementia supportive care Patients prognosis remains grave, he unfortunately is developing recurrent resistance to medications. This has been discussed in detail with the patient and daughter Disposition: [id number] SNF [facility] Time spent for discharge: 35 mins Core Measure Documentation - Palliative Care Palliative Care/ Comfort Measures: Not Applicable - Core Measures Any of the following diagnoses?: none Exam - Physical Exam Narrative exam: Gen: Not in acute distress. lying in bed, lethargic Head exam is unremarkable. No scleral icterus . Neck is without jugular venous distension, thyromegaly, or carotid bruits. Lungs are Diminished to auscultation. Cardiac exam reveals regular rate and Rhythm. First and second heart sounds normal. No murmurs, rubs or gallops. Abdominal exam reveals non tender, not distended,normal bowel sounds, no masses, Extremities contracted extremities. 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 - Constitutional Vitals: Temp Pulse Resp BP Pulse Ox 99.3 F 105 H 20 108/45 96 12/27/18 08:09 12/27/18 08:09 12/27/18 08:09 12/27/18 08:09 12/27/18 08:09 Plan Activity: advance as tolerated, fall precautions Diet: low fat, per dietitian instruction Wound: keep clean and dry, per your surgeon's advice, per wound nurse instructions Follow up with: PRIMARY CARE, [Referring] - 3-5 Days TERRI JUAREZ MD [Staff Physician] - 7 Days DAIN VARGAS MD [Staff Physician] - 7 Days FABRICIO WASHINGTON MD [Staff Physician] - 7 Days
[2018-12-27 14:10] VITALS: BP 137/75
== END 2018-12-27 18:00 | DRG 853 ==
LOC: ED 14:23 → IMCU 17:15 → 4A 11-06 20:32 → 2B-ACE 11-27 14:43
PROVIDERS: ADMIT Internal Medicine; ATTEND Internal Medicine
PROC: 4A033R1 Measurement of Arterial Saturation, Peripheral, Percutaneous Approach (ICD-10-PCS; 2018-11-01)
PROC: 5A09357 Assistance with Respiratory Ventilation, Less than 24 Consecutive Hours, Continuous Positive Airway Pressure (ICD-10-PCS; 2018-11-01)
PROC: 5A09357 Assistance with Respiratory Ventilation, Less than 24 Consecutive Hours, Continuous Positive Airway Pressure (ICD-10-PCS; 2018-11-02)
PROC: 30233N1 Transfusion of Nonautologous Red Blood Cells into Peripheral Vein, Percutaneous Approach (ICD-10-PCS; 2018-11-03)
PROC: 0QB70ZZ Excision of Left Upper Femur, Open Approach (ICD-10-PCS; principal; 2018-11-07)
PROC: 0JBQ0ZZ Excision of Right Foot Subcutaneous Tissue and Fascia, Open Approach (ICD-10-PCS; 2018-11-07)
PROC: 0JBR0ZZ Excision of Left Foot Subcutaneous Tissue and Fascia, Open Approach (ICD-10-PCS; 2018-11-07)
PROC: 0KBW0ZZ Excision of Left Foot Muscle, Open Approach (ICD-10-PCS; 2018-11-07)
PROC: 0KBS0ZZ Excision of Right Lower Leg Muscle, Open Approach (ICD-10-PCS; 2018-11-07)
PROC: 0KBV0ZZ Excision of Right Foot Muscle, Open Approach (ICD-10-PCS; 2018-11-07)
PROC: 0KBN0ZZ Excision of Right Hip Muscle, Open Approach (ICD-10-PCS; 2018-11-13)
PROC: 0JBR0ZZ Excision of Left Foot Subcutaneous Tissue and Fascia, Open Approach (ICD-10-PCS; 2018-11-13)
PROC: 0JBQ0ZZ Excision of Right Foot Subcutaneous Tissue and Fascia, Open Approach (ICD-10-PCS; 2018-11-13)
PROC: 0KBV0ZZ Excision of Right Foot Muscle, Open Approach (ICD-10-PCS; 2018-11-13)
PROC: 0QB70ZZ Excision of Left Upper Femur, Open Approach (ICD-10-PCS; 2018-11-13)
PROC: 0KBW0ZZ Excision of Left Foot Muscle, Open Approach (ICD-10-PCS; 2018-11-19)
PROC: 0KBQ0ZZ Excision of Right Upper Leg Muscle, Open Approach (ICD-10-PCS; 2018-11-19)
PROC: 0KBS0ZZ Excision of Right Lower Leg Muscle, Open Approach (ICD-10-PCS; 2018-11-19)
PROC: 0KBN0ZZ Excision of Right Hip Muscle, Open Approach (ICD-10-PCS; 2018-11-19)
PROC: 0KBV0ZZ Excision of Right Foot Muscle, Open Approach (ICD-10-PCS; 2018-11-19)
PROC: 0JBR0ZZ Excision of Left Foot Subcutaneous Tissue and Fascia, Open Approach (ICD-10-PCS; 2018-11-19)
PROC: 0JBN0ZZ Excision of Right Lower Leg Subcutaneous Tissue and Fascia, Open Approach (ICD-10-PCS; 2018-11-19)
PROC: 0JBQ0ZZ Excision of Right Foot Subcutaneous Tissue and Fascia, Open Approach (ICD-10-PCS; 2018-11-19)
PROC: 0QB70ZZ Excision of Left Upper Femur, Open Approach (ICD-10-PCS; 2018-11-19)
PROC: 0QB70ZZ Excision of Left Upper Femur, Open Approach (ICD-10-PCS; 2018-11-27)
PROC: 0QBL0ZZ Excision of Right Tarsal, Open Approach (ICD-10-PCS; 2018-11-27)
PROC: 0JBR0ZZ Excision of Left Foot Subcutaneous Tissue and Fascia, Open Approach (ICD-10-PCS; 2018-11-27)
PROC: 0JBL0ZZ Excision of Right Upper Leg Subcutaneous Tissue and Fascia, Open Approach (ICD-10-PCS; 2018-11-27)
PROC: 0JBN0ZZ Excision of Right Lower Leg Subcutaneous Tissue and Fascia, Open Approach (ICD-10-PCS; 2018-11-27)
PROC: 0JBQ0ZZ Excision of Right Foot Subcutaneous Tissue and Fascia, Open Approach (ICD-10-PCS; 2018-11-27)
PROC: 0JB70ZZ Excision of Back Subcutaneous Tissue and Fascia, Open Approach (ICD-10-PCS; 2018-11-27)
PROC: 0KBV0ZZ Excision of Right Foot Muscle, Open Approach (ICD-10-PCS; 2018-12-04)
PROC: 0KBP0ZZ Excision of Left Hip Muscle, Open Approach (ICD-10-PCS; 2018-12-04)
PROC: 0JBR0ZZ Excision of Left Foot Subcutaneous Tissue and Fascia, Open Approach (ICD-10-PCS; 2018-12-04)
PROC: 0JBL0ZZ Excision of Right Upper Leg Subcutaneous Tissue and Fascia, Open Approach (ICD-10-PCS; 2018-12-04)
PROC: 0JB70ZZ Excision of Back Subcutaneous Tissue and Fascia, Open Approach (ICD-10-PCS; 2018-12-04)
PROC: 0JBR0ZZ Excision of Left Foot Subcutaneous Tissue and Fascia, Open Approach (ICD-10-PCS; 2018-12-19)
PROC: 0JBL0ZZ Excision of Right Upper Leg Subcutaneous Tissue and Fascia, Open Approach (ICD-10-PCS; 2018-12-19)
PROC: 0JBM0ZZ Excision of Left Upper Leg Subcutaneous Tissue and Fascia, Open Approach (ICD-10-PCS; 2018-12-19)
PROC: 0JBN0ZZ Excision of Right Lower Leg Subcutaneous Tissue and Fascia, Open Approach (ICD-10-PCS; 2018-12-19)
PROC: 0JBQ0ZZ Excision of Right Foot Subcutaneous Tissue and Fascia, Open Approach (ICD-10-PCS; 2018-12-19)
PROC: 0JB70ZZ Excision of Back Subcutaneous Tissue and Fascia, Open Approach (ICD-10-PCS; 2018-12-19)
PROC: 0JBG0ZZ Excision of Right Lower Arm Subcutaneous Tissue and Fascia, Open Approach (ICD-10-PCS; 2018-12-19)
PROC: 02PYX3Z Removal of Infusion Device from Great Vessel, External Approach (ICD-10-PCS; 2018-12-25)
DX: A41.02 Sepsis due to Methicillin resistant Staphylococcus aureus (principal); L89.224 Pressure ulcer of left hip, stage 4; L89.153 Pressure ulcer of sacral region, stage 3; L89.513 Pressure ulcer of right ankle, stage 3; L89.623 Pressure ulcer of left heel, stage 3; L89.614 Pressure ulcer of right heel, stage 4; N17.0 Acute kidney failure with tubular necrosis; G93.41 Metabolic encephalopathy; J96.21 Acute and chronic respiratory failure with hypoxia; E43 Unspecified severe protein-calorie malnutrition; N39.0 Urinary tract infection, site not specified; I47.2 Ventricular tachycardia; I42.9 Cardiomyopathy, unspecified; I31.3 Pericardial effusion (noninflammatory); I47.1 Supraventricular tachycardia; E87.0 Hyperosmolality and hypernatremia; I50.42 Chronic combined systolic (congestive) and diastolic (congestive) heart failure; R65.20 Severe sepsis without septic shock; F03.90 Unspecified dementia, unspecified severity, without behavioral disturbance, psychotic disturbance, mood disturbance, and anxiety; I11.0 Hypertensive heart disease with heart failure; N13.9 Obstructive and reflux uropathy, unspecified; I25.2 Old myocardial infarction; E11.9 Type 2 diabetes mellitus without complications; M19.90 Unspecified osteoarthritis, unspecified site; G40.909 Epilepsy, unspecified, not intractable, without status epilepticus; J44.9 Chronic obstructive pulmonary disease, unspecified; N40.0 Benign prostatic hyperplasia without lower urinary tract symptoms; D63.8 Anemia in other chronic diseases classified elsewhere; I48.0 Paroxysmal atrial fibrillation; I44.7 Left bundle-branch block, unspecified; Z86.73 Personal history of transient ischemic attack (TIA), and cerebral infarction without residual deficits; Z93.1 Gastrostomy status; Z79.4 Long term (current) use of insulin; Z74.01 Bed confinement status; R31.9 Hematuria, unspecified; Z68.20 Body mass index [BMI] 20.0-20.9, adult; E87.5 Hyperkalemia; Y92.89 Other specified places as the place of occurrence of the external cause
CPT/HCPCS: 36415; 71045; 80048; 80053; 80061; 80202; 81001; 82140; 82550; 82803; 82805; 82962; 83690; 83735; 83880; 84100; 84132; 84484; 85007; 85014; 85018; 85025; 85027; 85610; 86850; 86900; 86901; 86920; 87040; 87076; 87086; 87186; 93005; 93010; 93308; 93321; 93325; 94640; 94644; 94660; 94760; 96365; 96367; 96368; 96375; G0378; A6260; A9270-GY; C1769; J0610; J0692; J0878; J1650; J2270; J2997; J3370; J3475; J7030; J7040; J7050; J7070; P9016

== ENCOUNTER 2018-12-30 17:36 | Inpatient (IN) | payer MEDICARE ==
[2018-12-30] MEDS ORDERED: NACL 0.9% 1000 ML IV ONE ×2 (17:50→20:46)
[2018-12-30] MEDS ORDERED: VANCOMYCIN 1,000 MG in NACL 0.9% 500 ML 500 ML IV ONE (17:57)
[2018-12-30] MEDS ORDERED: VANCOMYCIN PHARMACY TO DOSE IV SCH (18:00)
--- NOTE | 2018-12-30 18:11 | Emergency Department Report ---
ED Fever HPI - General Stated Complaint: INCREASE RR/TACHYPNEA/HYPERGLYCEMIA Time Seen by Provider: 12/30/18 17:48 Source: patient, EMS, penitentiary records, old records Exam Limitations: clinical condition - History of Present Illness Initial Comments: Mr. Posey is a 68-year-old male with hx of hypertension, BPH, systolic heart failure, sepsis, acute kidney injury, diabetes mellitus, seizure disorder, CVA, dementia, epilepsy, decubitus ulcers and pneumonia who sent to the ER for shortness of breath and hyperkalemia. Upon EMS arrival, vital signs obtain 100.5F, heart rate 127, respiratory rate 38, pulse 97% on room air. EMS noted diaphoresis and ill appearance. History obtained from the electronic medical record. Mr. Posey was discharged 3 days ago on December 27 after prolonged hospitalization. He is currently a resident of [facility]. Due to dementia and acute illness he does not provide much history. According to discharge summary, palliative care recommended to the family. It appears that Mr. Posey has had multiple infections leading to sepsis including UTI, infected decubitus ulcers. Additional history obtained from documentation provided by [facility]. Timing/Duration: other (fever documented on discharge summary) Fever Severity/Quality: low grade Associated Symptoms: shortness of breath ED Review of Systems ROS: Stated complaint: INCREASE RR/TACHYPNEA/HYPERGLYCEMIA Other details as noted in HPI Comment: Unobtainable due to pts medical conditions ED Past Medical Hx - Past Medical History Previous Medical History?: Yes Hx Hypertension: Yes Hx CVA: Yes Hx Heart Attack/AMI: Yes Hx Congestive Heart Failure: Yes Hx Diabetes: Yes Hx Deep Vein Thrombosis: No Hx Pulmonary Embolism: No Hx GERD: No Hx Liver Disease: No Hx Renal Disease: No Hx Sickle Cell Disease: No Hx Arthritis: Yes Hx Headaches / Migraines: No Hx Seizures: Yes Hx Kidney Stones: Yes Hx Psychiatric Treatment: Yes (Dementia) Hx Asthma: No Hx COPD: Yes Hx Tuberculosis: No Hx Dementia: Yes Hx HIV: No Additional medical history: Benign prostatic hypertrophy - Surgical History Hx Coronary Stent: No Hx Open Heart Surgery: No Hx Pacemaker: No Hx Internal Defibrillator: No Hx Cholecystectomy: No Hx Appendectomy: No Hx Breast Surgery: No Additional Surgical History: debridement of sacral wound, gastrostomy - Family History Family history: other (not signficant to today's presentation) - Social History Smoking Status: Unknown if ever smoked - Medications Home Medications: Home Medications Medication Instructions Recorded Confirmed Last Taken Type Multivit-Min/Iron Fum/Folic AC 1 each PO DAILY 03/24/18 11/01/18 Unknown History [Ilthp-Znrzikf-Iomnupuf Tablet] Acetaminophen 650 mg NGTUBE Q6H PRN 07/30/18 11/01/18 Unknown History Ipratropium/Albuterol Sulfate 1 ampul IH BID 07/30/18 11/01/18 Unknown History [DUONEB *Not for PRN Use*] Tamsulosin [Flomax] 0.4 mg PO QDAY 07/30/18 11/01/18 Unknown History Vit C/Ascorbate Calcium,Sodium 500 mg NGTUBE BID 07/30/18 11/01/18 Unknown History [Vitamin C 500 mg/15 ml Liquid] Zinc Sulfate 220 mg NGTUBE QDAY 07/30/18 11/01/18 Unknown History levETIRAcetam [Keppra INJ] 500 mg PO Q12H 07/30/18 11/01/18 Unknown History Phosphorus #1 [K-Phos Neutral] 250 mg PO QID #30 tablet 08/23/18 11/01/18 Unknown Rx hydroCHLOROthiazide [HCTZ] 12.5 mg PO QDAY #30 tablet 08/23/18 11/01/18 Unknown Rx AtorvaSTATin [Lipitor] 40 mg NGTUBE QHS #30 tablet 10/21/18 11/01/18 Unknown Rx Insulin Aspart [NovoLOG 100 0 unit SQ AC 11/01/18 11/01/18 Unknown History UNITS/ML VIAL] ALBUTEROL NEB's [Proventil 0.083% 2.5 mg IH Q3HRT PRN nebu 12/27/18 Unknown Rx NEBS] Carvedilol [Coreg] 6.25 mg PO BID tablet 12/27/18 Unknown Rx ED Physical Exam - General Limitations: Altered Mental Status, Physical Limitation General appearance: lethargic, cachectic, other (appears chronically ill, contracted mobility, right lateral decubitus position) - Head Head exam: Present: atraumatic, normocephalic - Eye Eye exam: Present: scleral icterus, conjunctival injection - ENT ENT exam: Present: mucous membranes dry - Neck Neck exam: Present: other (flexed contracted) - Respiratory Respiratory exam: Present: respiratory distress, rales, decreased breath sounds - Cardiovascular Cardiovascular Exam: Present: regular rate, normal rhythm, tachycardia. Absent: rubs, gallop - GI/Abdominal GI/Abdominal exam: Present: soft, other (+gastrostomy tube in place without surrounding infection). Absent: distended, tenderness, guarding, rebound - Extremities Exam Extremities exam: Present: other (contracted extremities with bandages on hip and feet) - Neurological Exam Neurological exam: Present: altered - Psychiatric Psychiatric exam: Present: flat affect - Skin Skin exam: Present: other (large sacral decubitus ulcer stage IV purulent drainage, no dressing in place, left hip 4 cm deep ulcer with purulent drainage) ED Course Vital Signs 12/30/18 12/30/18 12/30/18 18:50 19:00 19:16 Temperature Pulse Rate Blood Pressure 106/61 94/49 94/49 O2 Sat by Pulse 98 94 100 Oximetry 12/30/18 12/30/18 12/30/18 19:23 19:32 19:46 Temperature 98.8 F Pulse Rate Blood Pressure 270/115 270/115 O2 Sat by Pulse 100 100 Oximetry 12/30/18 12/30/18 12/30/18 20:01 20:16 20:31 Temperature Pulse Rate Blood Pressure 265/166 264/143 264/143 O2 Sat by Pulse 100 100 99 Oximetry 12/30/18 12/30/18 12/30/18 20:44 20:46 21:00 Temperature Pulse Rate 102 H Blood Pressure 125/59 125/59 O2 Sat by Pulse 100 99 Oximetry 12/30/18 12/30/18 21:16 21:19 Temperature 98.9 F Pulse Rate Blood Pressure 121/71 O2 Sat by Pulse 97 Oximetry ED Medical Decision Making - Lab Data Result diagrams: 12/30/18 18:11 12/30/18 18:11 - Medical Decision Making Mrs. Posey presents with sepsis and acute respiratory distress. I spoke with both daughters Christopher and Angela. They gave permission to proceed with further treatment hospitalization specifically hospitalization 1. Sepsis due to multiple sources, infected decubitus ulcers and likely UTI, I reviewed previous results of microbiology studies blood cultures have been positive in the past for MRSA, Escherichia coli, Streptococcus, enterococcus, Proteus, Broad spectrum antibiotcs were administered in the ED. Uurine culture previously positive for pseudomonas 2. acute respiratory distress 3. MÓNICA 4. deep stage IV decubitus ulcers of sacrum and left hip: Critical Care Time: Yes Critical care time in (mins) excluding proc time.: 40 Critical care attestation.: If time is entered above; I have spent that time in minutes in the direct care of this critically ill patient, excluding procedure time. 40 minutes of critical care time excluding procedures were used in the care of the patient. Patient required multiple assessments and interventions. I reviewed the electronic medical record. I spoke with admissions consultant involved in the care of the patient. ED Disposition Clinical Impression: Sepsis, [id number] renal failure, Pressure ulcer of left hip, stage 4, Encephalopathy, Hyperkalemia Disposition: OP ADMIT IP TO THIS HOSP Is pt being admited?: Yes Does the pt Need Aspirin: No Condition: Stable
[2018-12-30 18:27] LABS: Hematocrit 26.6 % (35.5-45.6); Hemoglobin 8.5 gm/dl (11.8-15.2); Mean Corpuscular HGB Conc 32 % (32-34); Mean Corpuscular Volume 86 fl (84-94); Platelet Count 571 K/mm3 (140-440); Red Blood Count 3.09 M/mm3 (3.65-5.03); Red Cell Distribution Width 17.4 % (13.2-15.2)
[2018-12-30] MEDS ORDERED: VANCOMYCIN 2,000 MG in NACL 0.9% 500 ML 500 ML IV SCH (18:30)
[2018-12-30] MEDS ORDERED: VANCOMYCIN 2,000 MG in NACL 0.9% 500 ML 500 ML IV ONE (19:00)
[2018-12-30] MEDS: MAXIPIME/NS 2 GM/100 ML 2 GM/100 ML BAG IV SCH ×2 (19:00→23:00)
--- NOTE | 2018-12-30 19:26 | History and Physical Report ---
History of Present Illness Chief complaint: He was having a hard time breathing History of present illness: 68 YO Male [facility] Resident as [facility] with HTN, CVA, Obstructive Uropathy, Diastolic CHF, Contracture, Sacral Decubitus Ulcers, MT, DM, OA, Seizure Disorder, COPD, Dementia, BPH presents to ED for evaluation. Pt is stuporous and unable to provide history. Pt history taken from ED Staff, EMS, and SNF Staff. As per staff, the patient was found to have difficulty breathing upon evaluation this morning. EMS notified and upon arrival thepatient was found to be indistress and the patient subsequently transported to [facility] for further care and evaluation. Pt seen and evaluated in ED and found to have UTI, Sepsis, Encephalopathy, Hyperkalemia, and NSTEMI. Pt admitted to [facility] and in itiated on Sepsis protoco. No further history obtainable. Pt is lethargic, but has a positive gag reflex, and is able to protect his ariway. Prior admission on 11/01/18 reviewed. All listed medication reconciled at time of admission. Past History Past Medical History: diabetes, heart failure, hyperlipidemia Social history: smoking Family history: no significant family history, other (reviewed) Medications and Allergies Allergies Allergy/AdvReac Type Severity Reaction Status Date / Time lisinopril Allergy Unknown Verified 10/01/18 15:17 tramadol Allergy Unknown Verified 07/29/18 18:39 Home Medications Medication Instructions Recorded Confirmed Last Taken Type Multivit-Min/Iron Fum/Folic AC 1 each PO DAILY 03/24/18 11/01/18 Unknown History [Gtcez-Wmqkfar-Cuoctmhz Tablet] Acetaminophen 650 mg NGTUBE Q6H PRN 07/30/18 11/01/18 Unknown History Ipratropium/Albuterol Sulfate 1 ampul IH BID 07/30/18 11/01/18 Unknown History [DUONEB *Not for PRN Use*] Tamsulosin [Flomax] 0.4 mg PO QDAY 07/30/18 11/01/18 Unknown History Vit C/Ascorbate Calcium,Sodium 500 mg NGTUBE BID 07/30/18 11/01/18 Unknown History [Vitamin C 500 mg/15 ml Liquid] Zinc Sulfate 220 mg NGTUBE QDAY 07/30/18 11/01/18 Unknown History levETIRAcetam [Keppra INJ] 500 mg PO Q12H 07/30/18 11/01/18 Unknown History Phosphorus #1 [K-Phos Neutral] 250 mg PO QID #30 tablet 08/23/18 11/01/18 Unknown Rx hydroCHLOROthiazide [HCTZ] 12.5 mg PO QDAY #30 tablet 08/23/18 11/01/18 Unknown Rx AtorvaSTATin [Lipitor] 40 mg NGTUBE QHS #30 tablet 10/21/18 11/01/18 Unknown Rx Insulin Aspart [NovoLOG 100 0 unit SQ AC 11/01/18 11/01/18 Unknown History UNITS/ML VIAL] ALBUTEROL NEB's [Proventil 0.083% 2.5 mg IH Q3HRT PRN nebu 12/27/18 Unknown Rx NEBS] Carvedilol [Coreg] 6.25 mg PO BID tablet 12/27/18 Unknown Rx Active Meds: Active Medications Cefepime HCl (Maxipime/Ns 2 Gm/100 Ml) 2 gm in 100 mls @ 200 mls/hr IV Q12HR [facility]; Protocol Vancomycin HCl 2,000 mg/ (Sodium Chloride) 540 mls @ 250 mls/hr IV ONCE ONE Stop: 12/30/18 21:09 Review of Systems ROS unobtainable: due to mental status Exam - Constitutional Vitals: Temp Pulse Resp BP Pulse Ox 98.8 F 12/30/18 19:23 General appearance: Present: mild distress - EENT Eyes: Present: PERRL ENT: hearing intact, clear oral mucosa - Neck Neck: Present: supple, normal ROM - Respiratory Respiratory effort: normal Respiratory: bilateral: CTA - Cardiovascular Heart Sounds: Present: S1 & S2. Absent: rub, click - Extremities Extremities: pulses symmetrical, No edema Peripheral Pulses: within normal limits - Abdominal General gastrointestinal: Present: soft, non-tender, non-distended, normal bowel sounds Male genitourinary: Present: normal - Integumentary Integumentary: Present: clear, warm, dry - Musculoskeletal Musculoskeletal: gait normal, strength equal bilaterally - Psychiatric Psychiatric: appropriate mood/affect, intact judgment & insight - Neurologic Neurologic: CNII-XII intact, moves all extremities Results - Labs CBC & Chem 7: 12/30/18 18:11 12/30/18 18:11 Labs: Abnormal lab results 12/30/18 Range/Units 18:11 WBC 14.0 H (4.5-11.0) K/mm3 RBC 3.09 L (3.65-5.03) M/mm3 Hgb 8.5 L (11.8-15.2) gm/dl Hct 26.6 L (35.5-45.6) % MCH 27 L (28-32) pg RDW 17.4 H (13.2-15.2) % Plt Count 571 H (140-440) K/mm3 Assessment and Plan - Patient Problems (1) Sepsis Current Visit: Yes Status: Acute Qualifiers: Sepsis type: sepsis due to unspecified organism Qualified Code(s): A41.9 - Sepsis, unspecified organism; R65.20 - Severe sepsis without septic shock Plan to address problem: Sepsis Protocol: IV antibiotic therapy, Chest x ray, urinalysis, chest x ray, CBC, CMP, monitor uop q shift, serial lactic acid.blood cultures. (2) UTI (urinary tract infection) Current Visit: Yes Status: Acute Plan to address problem: IV antibiotic therapy, urinalysis, CBC, CMP, (3) NSTEMI (non-ST elevated myocardial infarction) Current Visit: Yes Status: Acute Plan to address problem: Serial cardiac enzymes, ekg, telemetry, supplemental oxygen, therapeutic anticoagulation, cadiology consulted. (4) Dementia Current Visit: No Status: Chronic Plan to address problem: CT HeAD, Neuro check, aspiration precautions. (5) HTN (hypertension) Current Visit: No Status: Chronic Qualifiers: Hypertension type: essential hypertension Qualified Code(s): I10 - Essential (primary) hypertension Plan to address problem: Monitor BP w shigf (6) Seizure disorder Current Visit: No Status: Chronic Plan to address problem: Continue antiepileptic therapy, Ativan prn,
[2018-12-30 19:27] LABS: Alanine Aminotransferase 46 units/L (7-56); Albumin 2.4 g/dL (3.9-5); BUN/Creatinine Ratio 46; Blood Urea Nitrogen 55 mg/dL (9-20); Calcium 8.9 mg/dL (8.4-10.2); Hemolysis Index 9
[2018-12-30 19:31] LABS: RBC Morphology Normal; Total Cells Counted 100
[2018-12-30 20:03] LABS: Bacteria,Urine 1+ /HPF (Negative); Bilirubin,Urine NEG (Negative); Blood,Urine NEG (Negative); Color,Urine Yellow (Yellow); Mucus,Urine FEW /HPF; Urobilinogen,Urine < 2.0 mg/dL (<2.0)
--- NOTE | 2018-12-30 20:13 | XRay Report ---
CHEST 1 VIEW INDICATION: dyspnea COMPARISON: 12/21/2018 FINDINGS: Support devices: Left central line has been removed. Heart: Stable. Lungs/Pleura: No acute pulmonary or pleural findings. IMPRESSION: 1. No significant change. Signer Name: Tan Goldberg MD Signed: 12/30/2018 8:09 PM Workstation Name: [id number]
[2018-12-30] MEDS ORDERED: SODIUM CHLORIDE FLUSH SYRINGE 10 ML IV PRN ×2 (20:43→20:49)
[2018-12-30] MEDS ORDERED: PROVENTIL IH PRN (20:43)
[2018-12-30] MEDS ORDERED: ZOFRAN IV PRN (20:43)
[2018-12-30] MEDS ORDERED: CALCIUM GLUCONATE 1,000 MG in NACL 0.9% 100 ML IV ONE (20:43)
[2018-12-30] MEDS ORDERED: TYLENOL PO PRN (20:43)
[2018-12-30] MEDS ORDERED: BABY ASPIRIN PO STA (20:49)
[2018-12-30] MEDS ORDERED: NITROSTAT SL PRN (20:49)
[2018-12-30] MEDS ORDERED: BABY ASPIRIN ONE (21:28)
[2018-12-30] MEDS ORDERED: LOVENOX SUB-Q ONE (21:28)
[2018-12-30] MEDS ORDERED: NACL 0.9% 1000 ML 0 ML ONE (21:29)
[2018-12-30] MEDS ORDERED: KIONEX PR ONE (21:43)
[2018-12-30] MEDS ORDERED: MAXIPIME/NS 2 GM/100 ML 2 GM/100 ML BAG IV SCH (22:00)
[2018-12-30] MEDS ORDERED: LOVENOX SUB-Q SCH (22:00)
[2018-12-30 23:04] LABS: Chol/HDL Ratio 2.5 %
[2018-12-31] MEDS ORDERED: KIONEX ONE (00:41)
[2018-12-31] MEDS: NACL 0.9% 1000 ML 1,000 ML IV SCH ×3 (02:38→23:54)
[2018-12-31] MEDS: SODIUM CHLORIDE FLUSH SYRINGE 10 ML IV SCH ×3 (02:52→23:43)
[2018-12-31 06:09] LABS: Basophils # (Auto) 0.1 K/mm3 (0.0-0.1); Basophils % (Auto) 0.8 % (0.0-1.8); Eosinophils # (Auto) 0.3 K/mm3 (0.0-0.4); Eosinophils % (Auto) 2.3 % (0.0-4.3); Hematocrit 25.4 % (35.5-45.6); Lymphocytes # (Auto) 1.3 K/mm3 (1.2-5.4); Lymphocytes % (Auto) 9.3 % (13.4-35.0); Mean Corpuscular HGB Conc 31 % (32-34); Mean Corpuscular Volume 86 fl (84-94); Monocytes # (Auto) 1.4 K/mm3 (0.0-0.8); Monocytes % (Auto) 9.5 % (0.0-7.3); Platelet Count 554 K/mm3 (140-440); Red Blood Count 2.95 M/mm3 (3.65-5.03); Red Cell Distribution Width 17.9 % (13.2-15.2)
[2018-12-31 07:06] LABS: Alanine Aminotransferase 43 units/L (7-56); Albumin 1.9 g/dL (3.9-5); BUN/Creatinine Ratio 42; Blood Urea Nitrogen 46 mg/dL (9-20); Calcium 9.2 mg/dL (8.4-10.2); Hemolysis Index 1
[2018-12-31] MEDS: LOVENOX SUB-Q SCH ×2 (10:00→23:43)
[2018-12-31] MEDS: MAXIPIME/NS 2 GM/100 ML 2 GM/100 ML BAG IV SCH ×2 (10:00→23:43)
--- NOTE | 2018-12-31 14:18 | Consultation ---
History of Present Illness Consult date: 12/31/18 Consult reason: elevated troponin History of present illness: Patient is a 68-year old with multiple medical problems. He has a cardiac history of nonischemic cardiomyopathy. In 2014, a cardiac cath documents no significant coronary artery disease but a decreased ejection fraction 20% on routine follow up echocardiograms. Patient also has a history of paroxysmal atrial fibrillation, previously considered not a candidate for oral anticoagulat ion due to multiple co-morbidities and severe anemia. Patient was just discharged 48-72 hours ago after a prolonged hospitalization, now readmitted with Sepsis, UTI, Hypoxic respiratory failure and hyperkalemia. Chest x-ray reports no evidence of interstitial edema. An EKG is sinus tachycardia with a chronic LBBB. Past History Past Medical History: diabetes, heart failure, hyperlipidemia Social history: smoking Family history: no significant family history, other (reviewed) Medications and Allergies Allergies Allergy/AdvReac Type Severity Reaction Status Date / Time lisinopril Allergy Unknown Verified 10/01/18 15:17 tramadol Allergy Unknown Verified 07/29/18 18:39 Home Medications Medication Instructions Recorded Confirmed Last Taken Type Multivit-Min/Iron Fum/Folic AC 1 each PO DAILY 03/24/18 12/31/18 12/29/18 History [Jvtna-Iltwemg-Ceyevuce Tablet] Acetaminophen 650 mg NGTUBE Q6H PRN 07/30/18 12/31/18 12/29/18 History Ipratropium/Albuterol Sulfate 1 ampul IH BID 07/30/18 12/31/18 12/29/18 History [DUONEB *Not for PRN Use*] Tamsulosin [Flomax] 0.4 mg PO QDAY 07/30/18 12/31/18 12/29/18 History Vit C/Ascorbate Calcium,Sodium 500 mg NGTUBE BID 07/30/18 12/31/18 12/29/18 History [Vitamin C 500 mg/15 ml Liquid] Zinc Sulfate 220 mg NGTUBE QDAY 07/30/18 12/31/18 12/29/18 History levETIRAcetam [Keppra INJ] 500 mg PO Q12H 07/30/18 12/31/18 12/29/18 History Phosphorus #1 [K-Phos Neutral] 250 mg PO QID #30 tablet 08/23/18 12/31/18 12/29/18 Rx hydroCHLOROthiazide [HCTZ] 12.5 mg PO QDAY #30 tablet 08/23/18 12/31/18 12/29/18 Rx AtorvaSTATin [Lipitor] 40 mg NGTUBE QHS #30 tablet 10/21/18 12/31/18 12/29/18 Rx Insulin Aspart [NovoLOG 100 0 unit SQ AC 11/01/18 12/31/18 12/29/18 History UNITS/ML VIAL] ALBUTEROL NEB's [Proventil 0.083% 2.5 mg IH Q3HRT PRN nebu 12/27/18 12/31/18 12/29/18 Rx NEBS] Carvedilol [Coreg] 6.25 mg PO BID tablet 12/27/18 12/31/18 12/29/18 Rx Active Meds: Active Medications Acetaminophen (Tylenol) 650 mg PO Q4H PRN PRN Reason: Pain MILD(1-3)/Fever >100.5/PRICE Albuterol (Proventil) 2.5 mg IH Q4HRT PRN PRN Reason: Shortness Of Breath Atorvastatin Calcium (Lipitor) 40 mg PO QHS [facility] Last Admin: 12/31/18 00:35 Dose: 40 mg Documented by: Enoxaparin Sodium (Lovenox) 60 mg SUB-Q Q12HR [facility] Last Admin: 12/31/18 10:00 Dose: 60 mg Documented by: Cefepime HCl (Maxipime/Ns 2 Gm/100 Ml) 2 gm in 100 mls @ 200 mls/hr IV Q12HR [facility]; Protocol Last Infusion: 12/31/18 10:30 Dose: Infused Documented by: Sodium Chloride (Nacl 0.9% 1000 Ml) 1,000 mls @ 125 mls/hr IV DIRECT [facility] Last Infusion: 12/31/18 10:40 Dose: Infused Documented by: Nitroglycerin (Nitrostat) 0.4 mg SL Q5M PRN PRN Reason: Chest Pain Ondansetron HCl (Zofran) 4 mg IV Q8H PRN PRN Reason: Nausea And Vomiting Sodium Chloride (Sodium Chloride Flush Syringe 10 Ml) 10 ml IV BID [facility] Last Admin: 12/31/18 10:00 Dose: 10 ml Documented by: Sodium Chloride (Sodium Chloride Flush Syringe 10 Ml) 10 ml IV PRN PRN PRN Reason: LINE FLUSH Physical Examination Vital Signs BP Pulse Ox 106/61 98 12/30/18 18:50 12/30/18 18:50 General appearance: no acute distress Cardiac: Positive: Tachycardia Results 12/31/18 05:55 12/31/18 05:55 Cardiac Enzymes 12/30/18 12/31/18 Range/Units 18:11 05:55 AST 47 H 47 H (5-40) units/L Lipids 12/30/18 Range/Units 21:31 Triglycerides 87 (2-149) mg/dL Cholesterol 60 (50-199) mg/dL HDL Cholesterol 24 L (40-59) mg/dL Cholesterol/HDL Ratio 2.50 % CBC 12/30/18 12/31/18 Range/Units 18:11 05:55 WBC 14.0 H 14.4 H (4.5-11.0) K/mm3 RBC 3.09 L 2.95 L (3.65-5.03) M/mm3 Hgb 8.5 L 8.0 L (11.8-15.2) gm/dl Hct 26.6 L 25.4 L (35.5-45.6) % Plt Count 571 H 554 H (140-440) K/mm3 Lymph # 1.3 (1.2-5.4) K/mm3 Cherry # 1.4 H (0.0-0.8) K/mm3 Eos # 0.3 (0.0-0.4) K/mm3 Baso # 0.1 (0.0-0.1) K/mm3 Comprehensive Metabolic Panel 12/30/18 12/31/18 Range/Units 18:11 05:55 Sodium 144 D 148 H (137-145) mmol/L Potassium 6.3 H* 4.8 D (3.6-5.0) mmol/L Chloride 110.6 H 114.9 H (98-107) mmol/L Carbon Dioxide 20 L 20 L (22-30) mmol/L BUN 55 H 46 H (9-20) mg/dL Creatinine 1.2 1.1 (0.8-1.5) mg/dL Glucose 92 95 (75-100) mg/dL Calcium 8.9 9.2 (8.4-10.2) mg/dL AST 47 H 47 H (5-40) units/L ALT 46 43 (7-56) units/L Alkaline Phosphatase 413 H 355 H (35-129) units/L Total Protein 7.3 8.2 (6.3-8.2) g/dL Albumin 2.4 L 1.9 L (3.9-5) g/dL Assessment and Plan Sepsis Decubitus ulcer infections Recurrent UTI Chronic respiratory failure Anemia Chronically elevated troponin Paroxysmal Afib previously considered not a candidate for oral anticoagulation LBBB, chronic Non-ischemic Cardiomyopathy EF 30-35% DIANA-i allergy
--- NOTE | 2018-12-31 16:10 | Progress Note ---
Assessment and Plan Assessment and plan: 68 YO Male Alf Facility Resident as [facility] with HTN, CVA, Obstructive Uropathy, Diastolic CHF, Contracture, Sacral Decubitus Ulcers, DC, DM, OA, Seizure Disorder, COPD, Dementia, BPH presents to ED for evaluation. Pt is stuporous and unable to provide history. Pt history taken from ED Staff, EMS, and SNF Staff. As per staff, the patient was found to have difficulty breathing upon evaluation this morning. EMS notified and upon arrival thepatient was found to be indistress and the patient subsequently transported to [facility] for further care and evaluation. Pt seen and evaluated in ED and found to have UTI, Sepsis, Encephalopathy, Hyperkalemia, and NSTEMI. Pt admitted to [facility] and initiated on Sepsis protoco. No further history obtainable. Pt is lethargic, but has a positive gag reflex, and is able to protect his ariway. Prior admission on 11/01/18 reviewed. All listed medication reconciled at time of admission. 1) Sepsis - Likely due to decubitus ulcer - He was offered amputation and palliative care but he declined - ID saw him multiple times and said antibiotics will not help him much - Patient was discharged recently after staying 55 days\ - On cephepime (2) UTI (urinary tract infection) - antibiotics, urine culture (3) NSTEMI - Cardiology saw him - chronically elevated troponin (4) Dementia - supportive care (5) HTN (hypertension) - stable (6) Seizure disorder - continue AED Disposition; transfer to [facility] unit. History Interval history: Patient was seen and evaluated this morning, he is mumbling, looks in pain. Hospitalist Physical - Physical exam Narrative exam: Not in cardiopulmonary distress. The patient appeared well nourished and normally developed. Vital signs as documented. Head exam is unremarkable. No scleral icterus . Neck is without jugular venous distension, thyromegaly, or carotid bruits. Lungs are clear to auscultation. Cardiac exam reveals regular rate and Rhythm. Abdominal exam reveals normal bowel sounds. Extremities multiple decubitus ulcer, sacral area. 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 - Constitutional Vitals: Temp Pulse Resp BP Pulse Ox 97.8 F 109 H 17 79/53 96 12/31/18 12:00 12/31/18 13:10 12/31/18 13:10 12/31/18 13:10 12/31/18 13:10 General appearance: Present: no acute distress Results - Labs CBC & Chem 7: 12/31/18 05:55 12/31/18 05:55 Labs: Laboratory Last Values WBC 14.4 K/mm3 (4.5-11.0) H 12/31/18 05:55 RBC 2.95 M/mm3 (3.65-5.03) L 12/31/18 05:55 Hgb 8.0 gm/dl (11.8-15.2) L 12/31/18 05:55 Hct 25.4 % (35.5-45.6) L 12/31/18 05:55 MCV 86 fl (84-94) 12/31/18 05:55 MCH 27 pg (28-32) L 12/31/18 05:55 MCHC 31 % (32-34) L 12/31/18 05:55 RDW 17.9 % (13.2-15.2) H 12/31/18 05:55 Plt Count 554 K/mm3 (140-440) H 12/31/18 05:55 Lymph % (Auto) 9.3 % (13.4-35.0) L 12/31/18 05:55 [place] % (Auto) 9.5 % (0.0-7.3) H 12/31/18 05:55 Eos % (Auto) 2.3 % (0.0-4.3) 12/31/18 05:55 Baso % (Auto) 0.8 % (0.0-1.8) 12/31/18 05:55 Lymph # 1.3 K/mm3 (1.2-5.4) 12/31/18 05:55 [place] # 1.4 K/mm3 (0.0-0.8) H 12/31/18 05:55 Eos # 0.3 K/mm3 (0.0-0.4) 12/31/18 05:55 Baso # 0.1 K/mm3 (0.0-0.1) 12/31/18 05:55 Add Manual Diff Complete 12/30/18 18:11 Total Counted 100 12/30/18 18:11 Seg Neutrophils % 78.1 % (40.0-70.0) H 12/31/18 05:55 Seg Neuts % (Manual) 87.0 % (40.0-70.0) H 12/30/18 18:11 0 % 12/30/18 18:11 6.0 % (13.4-35.0) L 12/30/18 18:11 Reactive Lymphs % (Man) 0 % 12/30/18 18:11 4.0 % (0.0-7.3) 12/30/18 18:11 2.0 % (0.0-4.3) 12/30/18 18:11 1.0 % (0.0-1.8) 12/30/18 18:11 0 % 12/30/18 18:11 0 % 12/30/18 18:11 0 % 12/30/18 18:11 0 % 12/30/18 18:11 Nucleated RBC % Not Reportable 12/30/18 18:11 Seg Neutrophils # 11.3 K/mm3 (1.8-7.7) H 12/31/18 05:55 Seg Neutrophils # Man 12.2 K/mm3 (1.8-7.7) H 12/30/18 18:11 Band Neutrophils # 0.0 K/mm3 12/30/18 18:11 0.8 K/mm3 (1.2-5.4) L 12/30/18 18:11 Abs React Lymphs (Man) 0.0 K/mm3 12/30/18 18:11 0.6 K/mm3 (0.0-0.8) 12/30/18 18:11 0.3 K/mm3 (0.0-0.4) 12/30/18 18:11 0.1 K/mm3 (0.0-0.1) 12/30/18 18:11 0.0 K/mm3 12/30/18 18:11 0.0 K/mm3 12/30/18 18:11 0.0 K/mm3 12/30/18 18:11 Blast Cells # 0.0 K/mm3 12/30/18 18:11 WBC Morphology Not Reportable 12/30/18 18:11 Hypersegmented Neuts Not Reportable 12/30/18 18:11 Hyposegmented Neuts Not Reportable 12/30/18 18:11 Hypogranular Neuts Not Reportable 12/30/18 18:11 Not Reportable 12/30/18 18:11 Not Reportable 12/30/18 18:11 Not Reportable 12/30/18 18:11 Not Reportable 12/30/18 18:11 Not Reportable 12/30/18 18:11 Not Reportable 12/30/18 18:11 Not Reportable 12/30/18 18:11 Not Reportable 12/30/18 18:11 Plt Clumps, EDTA Not Reportable 12/30/18 18:11 Not Reportable 12/30/18 18:11 Not Reportable 12/30/18 18:11 Not Reportable 12/30/18 18:11 Plt Morphology Comment Not Reportable 12/30/18 18:11 RBC Morphology Normal 12/30/18 18:11 Dimorphic RBCs Not Reportable 12/30/18 18:11 Not Reportable 12/30/18 18:11 Not Reportable 12/30/18 18:11 Not Reportable 12/30/18 18:11 Not Reportable 12/30/18 18:11 Not Reportable 12/30/18 18:11 Not Reportable 12/30/18 18:11 Not Reportable 12/30/18 18:11 Not Reportable 12/30/18 18:11 Not Reportable 12/30/18 18:11 Not Reportable 12/30/18 18:11 Not Reportable 12/30/18 18:11 Not Reportable 12/30/18 18:11 Not Reportable 12/30/18 18:11 Not Reportable 12/30/18 18:11 Not Reportable 12/30/18 18:11 Not Reportable 12/30/18 18:11 Not Reportable 12/30/18 18:11 Not Reportable 12/30/18 18:11 Not Reportable 12/30/18 18:11 Acanthocytes (Spur) Not Reportable 12/30/18 18:11 Rouleaux Not Reportable 12/30/18 18:11 Not Reportable 12/30/18 18:11 Not Reportable 12/30/18 18:11 Not Reportable 12/30/18 18:11 Not Reportable 12/30/18 18:11 Hem Pathologist Commnt No 12/30/18 18:11 Sodium 148 mmol/L (137-145) H 12/31/18 05:55 Potassium 4.8 mmol/L (3.6-5.0) D 12/31/18 05:55 Chloride 114.9 mmol/L (98-107) H 12/31/18 05:55 Carbon Dioxide 20 mmol/L (22-30) L 12/31/18 05:55 18 mmol/L 12/31/18 05:55 BUN 46 mg/dL (9-20) H 12/31/18 05:55 1.1 mg/dL (0.8-1.5) 12/31/18 05:55 Estimated GFR > 60 ml/min 12/31/18 05:55 42 % 12/31/18 05:55 Glucose 95 mg/dL (75-100) 12/31/18 05:55 Lactic Acid 0.90 mmol/L (0.7-2.0) 12/31/18 05:55 Calcium 9.2 mg/dL (8.4-10.2) 12/31/18 05:55 0.40 mg/dL (0.1-1.2) 12/31/18 05:55 AST 47 units/L (5-40) H 12/31/18 05:55 ALT 43 units/L (7-56) 12/31/18 05:55 355 units/L (35-129) H 12/31/18 05:55 0.280 ng/mL (0.00-0.029) H* 12/31/18 05:55 8.2 g/dL (6.3-8.2) 12/31/18 05:55 1.9 g/dL (3.9-5) L 12/31/18 05:55 0.3 % 12/31/18 05:55 Triglycerides 87 mg/dL (2-149) 12/30/18 21:31 Cholesterol 60 mg/dL (50-199) 12/30/18 21:31 27 mg/dL (50-130) L 12/30/18 21:31 24 mg/dL (40-59) L 12/30/18 21:31 2.50 % 12/30/18 21:31 Yellow (Yellow) 12/30/18 19:35 Cloudy (Clear) 12/30/18 19:35 7.0 (5.0-7.0) 12/30/18 19:35 Ur Specific [place] 1.019 (1.003-1.030) 12/30/18 19:35 100 mg/dl mg/dL (Negative) 12/30/18 19:35 Neg mg/dL (Negative) 12/30/18 19:35 Neg mg/dL (Negative) 12/30/18 19:35 Neg (Negative) 12/30/18 19:35 Neg (Negative) 12/30/18 19:35 Neg (Negative) 12/30/18 19:35 < 2.0 mg/dL (<2.0) 12/30/18 19:35 Ur Leukocyte Esterase Mod (Negative) 12/30/18 19:35 95.0 /HPF (0.0-6.0) H 12/30/18 19:35 5.0 /HPF (0.0-6.0) 12/30/18 19:35 U Epithel Cells (Auto) 1.0 /HPF (0-13.0) 12/30/18 19:35 1+ /HPF (Negative) 12/30/18 19:35 Few /HPF 12/30/18 19:35 3+ /HPF 12/30/18 19:35 Blood Type O POSITIVE 12/30/18 20:57 Antibody Screen Negative 12/30/18 20:57 Active Medications - Current Medications Current Medications: Generic Name Dose Route Start Last Admin Trade Name Freq PRN Reason Stop Dose Admin Acetaminophen 650 mg 12/30/18 20:43 Tylenol PO Q4H PRN Pain MILD(1-3)/Fever >100.5/PRICE Albuterol 2.5 mg 12/30/18 20:43 Proventil IH Q4HRT PRN Shortness Of Breath Atorvastatin Calcium 40 mg 12/30/18 22:00 12/31/18 00:35 Lipitor PO 40 mg QHS NORA Administration Enoxaparin Sodium 60 mg 12/31/18 10:00 12/31/18 10:00 Lovenox SUB-Q 60 mg Q12HR NORA Administration Cefepime HCl 2 gm in 100 mls @ 200 mls/hr 12/30/18 17:56 12/31/18 10:30 Maxipime/Ns 2 Gm/100 Ml IV Infused Q12HR NORA Infusion Protocol Sodium Chloride 1,000 mls @ 125 mls/hr 12/31/18 02:00 12/31/18 10:40 Nacl 0.9% 1000 Ml IV Infused DIRECT NORA Infusion Nitroglycerin 0.4 mg 12/30/18 20:49 Nitrostat SL Q5M PRN Chest Pain Ondansetron HCl 4 mg 12/30/18 20:43 Zofran IV Q8H PRN Nausea And Vomiting Sodium Chloride 10 ml 12/30/18 22:00 12/31/18 10:00 Sodium Chloride Flush Syringe 10 Ml IV 10 ml BID NORA Administration Sodium Chloride 10 ml 12/30/18 20:43 Sodium Chloride Flush Syringe 10 Ml IV PRN PRN LINE FLUSH
[2018-12-31] MEDS: LOPRESSOR PO SCH (18:03)
[2019-01-01] MEDS: LOPRESSOR PO SCH ×3 (02:53→17:30)
[2019-01-01 06:31] LABS: BUN/Creatinine Ratio 42; Blood Urea Nitrogen 50 mg/dL (9-20); Calcium 8.8 mg/dL (8.4-10.2); Hemolysis Index 1
[2019-01-01 06:48] LABS: Basophils # (Auto) 0.1 K/mm3 (0.0-0.1); Basophils % (Auto) 1.1 % (0.0-1.8); Eosinophils # (Auto) 0.2 K/mm3 (0.0-0.4); Eosinophils % (Auto) 1.3 % (0.0-4.3); Hematocrit 22.5 % (35.5-45.6); Hemoglobin 7.2 gm/dl (11.8-15.2); Lymphocytes % (Auto) 8.7 % (13.4-35.0); Mean Corpuscular HGB Conc 32 % (32-34); Mean Corpuscular Volume 86 fl (84-94); Monocytes % (Auto) 8.3 % (0.0-7.3); Platelet Count 513 K/mm3 (140-440); Red Blood Count 2.61 M/mm3 (3.65-5.03); Red Cell Distribution Width 17.6 % (13.2-15.2)
[2019-01-01] MEDS ORDERED: D5W 1,000 ML IV SCH (09:00)
[2019-01-01] MEDS: MAXIPIME/NS 2 GM/100 ML 2 GM/100 ML BAG IV SCH ×2 (09:07→22:19)
[2019-01-01] MEDS: SODIUM CHLORIDE FLUSH SYRINGE 10 ML IV SCH ×2 (09:09→22:20)
[2019-01-01] MEDS: LOVENOX SUB-Q SCH ×2 (09:11→22:19)
--- NOTE | 2019-01-01 09:49 | Progress Note ---
<ALLEN BARNES - Last Filed: 01/01/19 09:46> Assessment and Plan Sepsis Decubitus ulcer infections Recurrent UTI Chronic respiratory failure Anemia Chronically elevated troponin Paroxysmal Afib previously considered not a candidate for oral anticoagulation LBBB, chronic Non-ischemic Cardiomyopathy EF 30-35% DIANA-i allergy Sinus tachycardia with some intermittent evidence of a possible atrial tachycardia. Recommendations: Continue beta blockers for suppression of sinus tachycardia with intermittent atrial tachycardia. Otherwise conservative cardiac approach to management. We'll follow on an intermittent basis. Subjective Date of service: 01/01/19 Interval history: No cardiac events reported. Objective Vital Signs Temp Pulse Pulse Resp BP BP Pulse Ox 01/01/19 09:25 98 01/01/19 09:10 82 125/52 01/01/19 07:37 98.8 F 81 18 126/63 99 01/01/19 05:35 130 H 01/01/19 02:54 99.1 F 101 H 36 H 137/80 98 12/31/18 22:00 95 H 30 H 99 12/31/18 20:36 99.7 F H 95 H 30 H 112/60 99 12/31/18 18:23 114/75 12/31/18 17:40 141 H 88/47 12/31/18 16:45 99.5 F 113 H 22 124/56 97 12/31/18 16:27 99.8 F H 114 H 22 124/57 95 12/31/18 16:00 108 H 26 H 88/47 96 12/31/18 15:50 114 H 27 H 81/51 97 12/31/18 15:40 111 H 33 H 81/51 97 12/31/18 15:30 112 H 21 81/51 97 12/31/18 15:20 105 H 38 H 81/51 97 12/31/18 15:10 111 H 22 81/51 98 12/31/18 15:00 112 H 18 81/51 12/31/18 14:50 105 H 46 H 89/52 94 12/31/18 14:40 104 H 32 H 89/52 96 12/31/18 14:30 108 H 37 H 89/52 96 12/31/18 14:20 110 H 36 H 89/52 96 12/31/18 14:10 106 H 36 H 89/52 96 12/31/18 14:00 113 H 23 79/53 97 12/31/18 13:50 111 H 41 H 79/53 97 12/31/18 13:40 118 H 42 H 79/53 97 12/31/18 13:30 110 H 21 79/53 97 12/31/18 13:20 112 H 39 H 79/53 98 12/31/18 13:10 109 H 17 79/53 96 12/31/18 13:00 117 H 23 79/53 12/31/18 12:50 114 H 25 H 90/49 96 12/31/18 12:40 112 H 43 H 90/49 96 12/31/18 12:30 114 H 22 90/49 97 12/31/18 12:20 118 H 29 H 90/49 98 12/31/18 12:10 120 H 47 H 90/49 97 12/31/18 12:00 97.6 F 120 H 115 H 46 H 81/51 97 12/31/18 11:50 122 H 42 H 92/50 97 12/31/18 11:40 120 H 48 H 92/50 97 12/31/18 11:30 129 H 33 H 92/50 97 12/31/18 11:20 114 H 40 H 92/50 96 12/31/18 11:10 118 H 40 H 92/50 96 12/31/18 11:07 96 12/31/18 11:00 117 H 35 H 92/50 95 12/31/18 10:50 124 H 48 H 108/75 96 12/31/18 10:40 119 H 38 H 108/75 96 12/31/18 10:30 116 H 48 H 108/75 97 12/31/18 10:20 121 H 41 H 108/75 97 12/31/18 10:10 123 H 48 H 108/75 96 12/31/18 10:00 122 H 40 H 108/75 12/31/18 09:50 120 H 43 H 99/71 95 - Physical Examination General: No Apparent Distress Cardiac: Positive: Reg Rate and Rhythm - Labs and Meds CBC 01/01/19 Range/Units 05:40 WBC 11.9 H (4.5-11.0) K/mm3 RBC 2.61 L (3.65-5.03) M/mm3 Hgb 7.2 L (11.8-15.2) gm/dl Hct 22.5 L (35.5-45.6) % Plt Count 513 H (140-440) K/mm3 Lymph # 1.0 L (1.2-5.4) K/mm3 [place] # 1.0 H (0.0-0.8) K/mm3 Eos # 0.2 (0.0-0.4) K/mm3 Baso # 0.1 (0.0-0.1) K/mm3 Comprehensive Metabolic Panel 01/01/19 Range/Units 05:40 Sodium 152 H (137-145) mmol/L Potassium 4.0 (3.6-5.0) mmol/L Chloride 118.6 H (98-107) mmol/L Carbon Dioxide 19 L (22-30) mmol/L BUN 50 H (9-20) mg/dL Creatinine 1.2 (0.8-1.5) mg/dL Glucose 77 (75-100) mg/dL Calcium 8.8 (8.4-10.2) mg/dL <JOSEFA CORDOVA - Last Filed: 01/01/19 19:43> Assessment and Plan I have seen and evaluated the patient and agree with the assessment and plan. Continue rate control strategy for treatment of atrial fibrillation. Patient is not a candidate for anticoagulation. Patient has has non-ischemic cardiomyopathy with EF 30-35% - continue current medical therapy with BB. Patient is ACEi allergic. Maximize BB as tolerated. Objective Vital Signs Temp Pulse Pulse Resp BP Pulse Ox 01/01/19 17:30 94 H 119/60 01/01/19 13:42 99.5 F 88 18 106/71 99 01/01/19 10:00 79 82 18 99 01/01/19 09:25 98 01/01/19 09:10 82 125/52 01/01/19 07:37 98.8 F 81 18 126/63 99 01/01/19 05:35 130 H 01/01/19 02:54 99.1 F 101 H 36 H 137/80 98 12/31/18 22:00 95 H 30 H 99 12/31/18 20:36 99.7 F H 95 H 30 H 112/60 99 - Labs and Meds CBC 01/01/19 Range/Units 05:40 WBC 11.9 H (4.5-11.0) K/mm3 RBC 2.61 L (3.65-5.03) M/mm3 Hgb 7.2 L (11.8-15.2) gm/dl Hct 22.5 L (35.5-45.6) % Plt Count 513 H (140-440) K/mm3 Lymph # 1.0 L (1.2-5.4) K/mm3 [place] # 1.0 H (0.0-0.8) K/mm3 Eos # 0.2 (0.0-0.4) K/mm3 Baso # 0.1 (0.0-0.1) K/mm3 Comprehensive Metabolic Panel 01/01/19 Range/Units 05:40 Sodium 152 H (137-145) mmol/L Potassium 4.0 (3.6-5.0) mmol/L Chloride 118.6 H (98-107) mmol/L Carbon Dioxide 19 L (22-30) mmol/L BUN 50 H (9-20) mg/dL Creatinine 1.2 (0.8-1.5) mg/dL Glucose 77 (75-100) mg/dL Calcium 8.8 (8.4-10.2) mg/dL
--- NOTE | 2019-01-01 12:18 | Procedure Note ---
Date of procedure: 01/01/19 Pre-op diagnosis: Multiple pressure ulcers Post-op diagnosis: same Procedure: Debridement of multiple pressure/leg ulcerations Description of procedure: Pt was positioned so as to expose his ulcerations. Each area was prepped and draped prior to debridement. His right lateral foot and left hip ulcerations were surgically, excisionally debrided of necrotic muscle and tendon with a curette. Bleeding was minimal and was controlled with pressure. His sacral, left heel, right medial leg, right lateral leg, right knee and left lateral malleolus were surgically, excisionally debrided of necrotic SQ tissue with a curette. Bleeding was minimal and was controlled with pressure. Wounds were dressed by the Wound Care team. Pt tolerated the procedure well. Final wound measurements were as follows: 1) Right lateral proximal leg - 2 X 1.2 X 0.1 cm 2) Right lateral distal leg - 7.7 X 1.2 X 0.2 cm 3) Right lateral foot - 2.1 X 2.3 X 0.3 cm 4) Right knee - 2 X 1.3 X 0.3 cm 5) Right medial leg - 7.9 X 2.5 X 0.3 cm 6) Left heel - 1.5 X 3.2 X 0.2 cm 7) Left lateral malleolus - 1.8 X 2.3 X 0.3 cm 8) Left hip - 4.6 X 4.8 X 9 cm 9) Sacrum - 10 X 13 X 1.4 cm Anesthesia: none Surgeon: FABRICIO WASHINGTON Estimated blood loss: minimal Pathology: none Specimen disposition: discarded Condition: stable Disposition: no change
[2019-01-01] MEDS ORDERED: SODIUM BICARBONATE FEEDTUBE PRN (15:25)
[2019-01-01] MEDS ORDERED: PANCREAZE DR 10,500 UNIT FEEDTUBE PRN (15:25)
[2019-01-01] MEDS ORDERED: SIMPLE SYRUP FEEDTUBE PRN ×3 (15:25→16:36)
--- NOTE | 2019-01-01 15:40 | Progress Note ---
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 Pt is stuporous and unable to provide history. Pt history taken from ED Staff, EMS, and SNF Staff. As per staff, the patient was found to have difficulty breathing upon evaluation this morning. EMS notified and upon arrival thepatient was found to be indistress and the patient subsequently transported to [facility] for further care and evaluation. Pt seen and evaluated in ED and found to have UTI, Sepsis, Encephalopathy, Hyperkalemia, and NSTEMI. Pt admitted to [facility] and initiated on Sepsis protoco. No further history obtainable. Pt is lethargic, but has a positive gag reflex, and is able to protect his ariway. Prior admission on 11/01/18 reviewed. All listed medication reconciled at time of admission. 1) Sepsis - Likely due to decubitus ulcer - He was offered amputation and palliative care but he declined - ID saw him multiple times and said antibiotics will not help him much - Patient was discharged recently after staying 55 days - On cephepime Multiple decubitus ulcers - Wound care surgeon saw the patient this morning Hypernatremia - Patient is on D5W (2) UTI (urinary tract infection) - antibiotics, urine culture (3) NSTEMI - Cardiology saw him - chronically elevated troponin (4) Dementia - supportive care (5) HTN (hypertension) - stable (6) Seizure disorder - continue AED Disposition; Possible DC tomorrow if hypernatremia resolved. History Interval history: Patient was seen and evaluated this morning, no nursing issues reported overnight. Hospitalist Physical - Physical exam Narrative exam: Not in cardiopulmonary distress. The patient appeared well nourished and normally developed. Vital signs as documented. Head exam is unremarkable. No scleral icterus . Neck is without jugular venous distension, thyromegaly, or carotid bruits. Lungs are clear to auscultation. Cardiac exam reveals regular rate and Rhythm. Abdominal exam reveals normal bowel sounds. Extremities multiple decubitus ulcer, sacral area. TRANSPORTER RADIOLOGY: mumbling. - Constitutional Vitals: Temp Pulse Resp BP Pulse Ox 99.5 F 88 18 106/71 99 01/01/19 13:42 01/01/19 13:42 01/01/19 13:42 01/01/19 13:42 01/01/19 13:42 General appearance: Present: no acute distress Results - Labs CBC & Chem 7: 01/01/19 05:40 01/01/19 05:40 Labs: Laboratory Last Values WBC 11.9 K/mm3 (4.5-11.0) H 01/01/19 05:40 RBC 2.61 M/mm3 (3.65-5.03) L 01/01/19 05:40 Hgb 7.2 gm/dl (11.8-15.2) L 01/01/19 05:40 Hct 22.5 % (35.5-45.6) L 01/01/19 05:40 MCV 86 fl (84-94) 01/01/19 05:40 MCH 27 pg (28-32) L 01/01/19 05:40 MCHC 32 % (32-34) 01/01/19 05:40 RDW 17.6 % (13.2-15.2) H 01/01/19 05:40 Plt Count 513 K/mm3 (140-440) H 01/01/19 05:40 Lymph % (Auto) 8.7 % (13.4-35.0) L 01/01/19 05:40 Ada % (Auto) 8.3 % (0.0-7.3) H 01/01/19 05:40 Eos % (Auto) 1.3 % (0.0-4.3) 01/01/19 05:40 Baso % (Auto) 1.1 % (0.0-1.8) 01/01/19 05:40 Lymph # 1.0 K/mm3 (1.2-5.4) L 01/01/19 05:40 Ada # 1.0 K/mm3 (0.0-0.8) H 01/01/19 05:40 Eos # 0.2 K/mm3 (0.0-0.4) 01/01/19 05:40 Baso # 0.1 K/mm3 (0.0-0.1) 01/01/19 05:40 Add Manual Diff Complete 12/30/18 18:11 Total Counted 100 12/30/18 18:11 Seg Neutrophils % 80.6 % (40.0-70.0) H 01/01/19 05:40 Seg Neuts % (Manual) 87.0 % (40.0-70.0) H 12/30/18 18:11 0 % 12/30/18 18:11 6.0 % (13.4-35.0) L 12/30/18 18:11 Reactive Lymphs % (Man) 0 % 12/30/18 18:11 4.0 % (0.0-7.3) 12/30/18 18:11 2.0 % (0.0-4.3) 12/30/18 18:11 1.0 % (0.0-1.8) 12/30/18 18:11 0 % 12/30/18 18:11 0 % 12/30/18 18:11 0 % 12/30/18 18:11 0 % 12/30/18 18:11 Nucleated RBC % Not Reportable 12/30/18 18:11 Seg Neutrophils # 9.6 K/mm3 (1.8-7.7) H 01/01/19 05:40 Seg Neutrophils # Man 12.2 K/mm3 (1.8-7.7) H 12/30/18 18:11 Band Neutrophils # 0.0 K/mm3 12/30/18 18:11 0.8 K/mm3 (1.2-5.4) L 12/30/18 18:11 Abs React Lymphs (Man) 0.0 K/mm3 12/30/18 18:11 0.6 K/mm3 (0.0-0.8) 12/30/18 18:11 0.3 K/mm3 (0.0-0.4) 12/30/18 18:11 0.1 K/mm3 (0.0-0.1) 12/30/18 18:11 0.0 K/mm3 12/30/18 18:11 0.0 K/mm3 12/30/18 18:11 0.0 K/mm3 12/30/18 18:11 Blast Cells # 0.0 K/mm3 12/30/18 18:11 WBC Morphology Not Reportable 12/30/18 18:11 Hypersegmented Neuts Not Reportable 12/30/18 18:11 Hyposegmented Neuts Not Reportable 12/30/18 18:11 Hypogranular Neuts Not Reportable 12/30/18 18:11 Not Reportable 12/30/18 18:11 Not Reportable 12/30/18 18:11 Not Reportable 12/30/18 18:11 Not Reportable 12/30/18 18:11 Not Reportable 12/30/18 18:11 Not Reportable 12/30/18 18:11 Not Reportable 12/30/18 18:11 Not Reportable 12/30/18 18:11 Plt Clumps, EDTA Not Reportable 12/30/18 18:11 Not Reportable 12/30/18 18:11 Not Reportable 12/30/18 18:11 Not Reportable 12/30/18 18:11 Plt Morphology Comment Not Reportable 12/30/18 18:11 RBC Morphology Normal 12/30/18 18:11 Dimorphic RBCs Not Reportable 12/30/18 18:11 Not Reportable 12/30/18 18:11 Not Reportable 12/30/18 18:11 Not Reportable 12/30/18 18:11 Not Reportable 12/30/18 18:11 Not Reportable 12/30/18 18:11 Not Reportable 12/30/18 18:11 Not Reportable 12/30/18 18:11 Not Reportable 12/30/18 18:11 Not Reportable 12/30/18 18:11 Not Reportable 12/30/18 18:11 Not Reportable 12/30/18 18:11 Not Reportable 12/30/18 18:11 Not Reportable 12/30/18 18:11 Not Reportable 12/30/18 18:11 Not Reportable 12/30/18 18:11 Not Reportable 12/30/18 18:11 Not Reportable 12/30/18 18:11 Not Reportable 12/30/18 18:11 Not Reportable 12/30/18 18:11 Acanthocytes (Spur) Not Reportable 12/30/18 18:11 Rouleaux Not Reportable 12/30/18 18:11 Not Reportable 12/30/18 18:11 Not Reportable 12/30/18 18:11 Not Reportable 12/30/18 18:11 Not Reportable 12/30/18 18:11 Hem Pathologist Commnt No 12/30/18 18:11 Sodium 152 mmol/L (137-145) H 01/01/19 05:40 Potassium 4.0 mmol/L (3.6-5.0) 01/01/19 05:40 Chloride 118.6 mmol/L (98-107) H 01/01/19 05:40 Carbon Dioxide 19 mmol/L (22-30) L 01/01/19 05:40 18 mmol/L 01/01/19 05:40 BUN 50 mg/dL (9-20) H 01/01/19 05:40 1.2 mg/dL (0.8-1.5) 01/01/19 05:40 Estimated GFR > 60 ml/min 01/01/19 05:40 42 % 01/01/19 05:40 Glucose 77 mg/dL (75-100) 01/01/19 05:40 POC Glucose 88 (70-105) 01/01/19 11:37 Lactic Acid 0.90 mmol/L (0.7-2.0) 12/31/18 05:55 Calcium 8.8 mg/dL (8.4-10.2) 01/01/19 05:40 0.40 mg/dL (0.1-1.2) 12/31/18 05:55 AST 47 units/L (5-40) H 12/31/18 05:55 ALT 43 units/L (7-56) 12/31/18 05:55 355 units/L (35-129) H 12/31/18 05:55 0.280 ng/mL (0.00-0.029) H* 12/31/18 05:55 8.2 g/dL (6.3-8.2) 12/31/18 05:55 1.9 g/dL (3.9-5) L 12/31/18 05:55 0.3 % 12/31/18 05:55 Triglycerides 87 mg/dL (2-149) 12/30/18 21:31 Cholesterol 60 mg/dL (50-199) 12/30/18 21:31 27 mg/dL (50-130) L 12/30/18 21:31 24 mg/dL (40-59) L 12/30/18 21:31 2.50 % 12/30/18 21:31 Yellow (Yellow) 12/30/18 19:35 Cloudy (Clear) 12/30/18 19:35 7.0 (5.0-7.0) 12/30/18 19:35 Ur Specific [place] 1.019 (1.003-1.030) 12/30/18 19:35 100 mg/dl mg/dL (Negative) 12/30/18 19:35 Neg mg/dL (Negative) 12/30/18 19:35 Neg mg/dL (Negative) 12/30/18 19:35 Neg (Negative) 12/30/18 19:35 Neg (Negative) 12/30/18 19:35 Neg (Negative) 12/30/18 19:35 < 2.0 mg/dL (<2.0) 12/30/18 19:35 Ur Leukocyte Esterase Mod (Negative) 12/30/18 19:35 95.0 /HPF (0.0-6.0) H 12/30/18 19:35 5.0 /HPF (0.0-6.0) 12/30/18 19:35 U Epithel Cells (Auto) 1.0 /HPF (0-13.0) 12/30/18 19:35 1+ /HPF (Negative) 12/30/18 19:35 Few /HPF 12/30/18 19:35 3+ /HPF 12/30/18 19:35 Blood Type O POSITIVE 12/30/18 20:57 Antibody Screen Negative 12/30/18 20:57 Active Medications - Current Medications Current Medications: Generic Name Dose Route Start Last Admin Trade Name Freq PRN Reason Stop Dose Admin Acetaminophen 650 mg 12/30/18 20:43 Tylenol PO Q4H PRN Pain MILD(1-3)/Fever >100.5/PRICE Albuterol 2.5 mg 12/30/18 20:43 Proventil IH Q4HRT PRN Shortness Of Breath Lipase/Protease/Amylase 1 each 01/01/19 15:[address] 10,500 Unit FEEDTUBE PRN PRN For Clogged Feeding Tube Atorvastatin Calcium 40 mg 12/30/18 22:00 12/31/18 23:43 Lipitor PO 40 mg QHS NORA Administration Enoxaparin Sodium 60 mg 12/31/18 10:00 01/01/19 09:11 Lovenox SUB-Q 60 mg Q12HR NORA Administration Cefepime HCl 2 gm in 100 mls @ 200 mls/hr 12/30/18 17:56 01/01/19 09:07 Maxipime/Ns 2 Gm/100 Ml IV 200 mls/hr Q12HR NORA Administration Protocol Dextrose 1,000 mls @ 100 mls/hr 01/01/19 09:00 01/01/19 08:36 D5w IV 100 mls/hr DIRECT NORA Administration Metoprolol Tartrate 12.5 mg 12/31/18 18:00 01/01/19 09:10 Lopressor PO 12.5 mg Q8H NORA Administration Nitroglycerin 0.4 mg 12/30/18 20:49 Nitrostat SL Q5M PRN Chest Pain Ondansetron HCl 4 mg 12/30/18 20:43 Zofran IV Q8H PRN Nausea And Vomiting Simple Syrup 15 ml 01/01/19 15:25 Simple Syrup FEEDTUBE PRN PRN Hypoglycemia Simple Syrup 30 ml 01/01/19 15:25 Simple Syrup FEEDTUBE PRN PRN Hypoglycemia Sodium Bicarbonate 325 mg 01/01/19 15:25 Sodium Bicarbonate FEEDTUBE PRN PRN For Clogged Feeding Tube Sodium Chloride 10 ml 12/30/18 22:00 01/01/19 09:09 Sodium Chloride Flush Syringe 10 Ml IV Not Given BID NORA Sodium Chloride 10 ml 12/30/18 20:43 Sodium Chloride Flush Syringe 10 Ml IV PRN PRN LINE FLUSH Nutrition/Malnutrition Assess - Dietary Evaluation Nutrition/Malnutrition Findings: Nutrition Notes Start: 01/01/19 13:55 Freq: Status: Active Protocol: Document 01/01/19 13:55 CHANDRAKANT (Rec: 01/01/19 13:59 COJUSTIN SRW- [email or web address]) Nutrition Notes Need for Assessment generated from: MD Order Initial or Follow up Assessment Current Diagnosis COPD,Decubitus(Pressure Ulcer) ,Diabetes,Sepsis,Hypertension, Heart Failure,Stroke Other Pertinent Diagnosis UTI, STEMI, Dementia, obstructive uropathy Current Diet No diet ordered Labs/Tests Na 152 BUN 50 Pertinent Medications D5W at 100ml/hr Height 5 ft 10 in Weight 59.09 kg [place] Body Weight (kg) 75.45 BMI 18.6 Weight Status Underweight Subjective/Other Information RD consulted for TF. Pt from [place] and has PEG tube. Burn Absent Trauma Absent #1 Nutrition Diagnosis Malnutrition Etiology chronic illness As Evidenced by Signs and Symptoms BMI 18.6, evident muscle wasting and subcutaneous fat loss, chronic pressure ulcers Is patient on ventilator? No Is Patient Ambulatory and/or Out of Bed No REE-([place]-Manish Whitaker-confined to bed) 1640.496 Kcal/Kg value to use for calculation 35 Approximate Energy Requirements Using 2068 kcal/Kg Calculation Used for Recommendations Kcal/kg Additional Notes Pro needs 1.25-1.5g/k-89g /day Fluid needs 1ml/kcal Nutrition Intervention Nutrition Support: Jevity 1.2 at 70ml/hr with 110ml water flush q4h. Kcal 2,016 Protein (gm) 93 Carbohydrates (gm) 285 Fat (gm) 66 Fluid (mL) 1,356 Fiber (gm) 30 Add Supplement/Snack (indicate name/kcal Mario BID /protein ) Provides kCal: 190 Provides Protein (gm) 5 Goal #1 TF tolerance Goal #2 TF (at goal rate) to meet 100% energy and pro needs Goal #3 Wt maintenance and/or gain Goal #4 Wound healing Anticipated Discharge Needs: Continue TF with wound healing supplement Follow-Up By: 01/03/19 Additional Comments F/U: new TF, Mario administration
[2019-01-02] MEDS: LOPRESSOR PO SCH ×2 (02:55→09:06)
[2019-01-02 05:51] LABS: Basophils # (Auto) 0.1 K/mm3 (0.0-0.1); Basophils % (Auto) 0.7 % (0.0-1.8); Eosinophils # (Auto) 0.3 K/mm3 (0.0-0.4); Eosinophils % (Auto) 3.3 % (0.0-4.3); Hematocrit 24.5 % (35.5-45.6); Hemoglobin 7.7 gm/dl (11.8-15.2); Mean Corpuscular HGB Conc 32 % (32-34); Mean Corpuscular Volume 86 fl (84-94); Monocytes # (Auto) 0.9 K/mm3 (0.0-0.8); Monocytes % (Auto) 8.5 % (0.0-7.3); Platelet Count 521 K/mm3 (140-440); Red Blood Count 2.84 M/mm3 (3.65-5.03); Red Cell Distribution Width 17.4 % (13.2-15.2)
[2019-01-02 06:14] LABS: BUN/Creatinine Ratio 45; Blood Urea Nitrogen 59 mg/dL (9-20); Calcium 8.9 mg/dL (8.4-10.2); Hemolysis Index 2
[2019-01-02] MEDS: LOVENOX SUB-Q SCH (09:07)
[2019-01-02] MEDS: SODIUM CHLORIDE FLUSH SYRINGE 10 ML IV SCH (09:07)
[2019-01-02] MEDS: MAXIPIME/NS 2 GM/100 ML 2 GM/100 ML BAG IV SCH (09:07)
--- NOTE | 2019-01-02 09:17 | Discharge Summary ---
Providers - Providers Date of Admission: 12/30/18 20:44 Date of discharge: 01/02/19 Attending physician: CAROLINE TRAMMELL MD 12/30/18 Consult to Cardiac Rehabilitation [CONS] Routine Reason For Exam: Phase I 12/30/18 20:49 Consult to Cardiology [CONS] Routine Consulting Provider: ALONZO RAMÍREZ Reason For Exam: nstemi 12/31/18 16:17 Consult to Dietitian/Nutrition [CONS] Routine Physician Instructions: Reason For Exam: Reason for Consult: Write/Manage Tube Feeding 01/01/19 06:18 Consult to Wound/ET Nurse [CONS] Urgent Reason For Exam: wound eval Primary care physician: [facility] Hospitalization Reason for admission: Sepsis, decubitus ulcer Condition: Stable Hospital course: 68 YO Male [facility] Facility Resident as [facility] with HTN, CVA, Obstructive Uropathy, Diastolic CHF, Contracture, Sacral Decubitus Ulcers, AR, DM, OA, Seizure Disorder, COPD, Dementia, BPH presents to ED for evaluation. Pt is stuporous and unable to provide history. Pt history taken from ED Staff, EMS, and SNF Staff. As per staff, the patient was found to have difficulty breathing upon evaluation this morning. EMS notified and upon arrival thepatient was found to be indistress and the patient subsequently transported to [facility] for further care and evaluation. Pt seen and evaluated in ED and found to have UTI, Sepsis, Encephalopathy, Hyperkalemia, and NSTEMI. Pt admitted to IMCU and initiated on Sepsis protoco. No further history obtainable. Pt is lethargic, but has a positive gag reflex, and is able to protect his ariway. Prior admission on 11/01/18 reviewed. All listed medication reconciled at time of admission. Patient was admitted to the floor for the management of sepsis. patient is admitted multiple times to the hospital with the same problems. Was evaluated by ID and surgery many times and was recommended to have amputation. Medication doesn't help much and the patient's family declined amputation. Antibiotics is a temporizing measure. Patient is appropriate for hospice care but patient declined. patient discharged back to SNF with PO antibiotics. There is nothing much done for this patient. patient is bed bound. Disposition: [id number]/[place]-03 SNF W [facility] C[facility] Time spent for discharge: 32 minutes - Discharge Diagnoses (1) Encephalopathy Status: Acute (2) Hyperkalemia Status: Acute (3) NSTEMI (non-ST elevated myocardial infarction) Status: Acute (4) Pressure ulcer of left hip, stage 4 Status: Acute (5) Sepsis Status: Acute (6) Respiratory failure Status: Acute Qualifiers: Chronicity: acute Respiratory failure complication: hypoxia Qualified Code(s): J96.01 - Acute respiratory failure with hypoxia (7) Seizure Status: Acute Core Measure Documentation - Palliative Care Palliative Care/ Comfort Measures: Not Applicable - Core Measures Any of the following diagnoses?: none Exam - Physical Exam Narrative exam: Not in cardiopulmonary distress. The patient appeared well nourished and normally developed. Vital signs as documented. Head exam is unremarkable. No scleral icterus . Neck is without jugular venous distension, thyromegaly, or carotid bruits. Lungs are clear to auscultation. Cardiac exam reveals regular rate and Rhythm. Abdominal exam reveals normal bowel sounds. Extremities multiple decubitus ulcer, sacral area. contracted. 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 - Constitutional Vitals: Temp Pulse Resp BP Pulse Ox 98.5 F 82 18 131/70 98 01/02/19 08:04 01/02/19 09:06 01/02/19 08:04 01/02/19 09:06 01/02/19 08:04 Plan Activity: other (bed bound) Weight Bearing Status: Non-Weight Bearing Diet: per dietitian instruction Wound: per your surgeon's advice, per wound nurse instructions Additional Instructions: F/U at [facility] in 1-2 weeks Follow up with: PRIMARY CAREMD [Referring] - 3-5 Days Prescriptions: Cefuroxime Axetil [Ceftin] 500 mg PO Q12H #140 ml
[2019-01-02 15:16] VITALS: BP 135/72
== END 2019-01-02 16:10 | DRG 853 ==
LOC: ED 17:36 → IMCU 20:44 → CC1 12-31 00:31 → 2B-ACE 12-31 16:35
PROVIDERS: ADMIT Internal Medicine; ATTEND Internal Medicine
PROC: 0LBV0ZZ Excision of Right Foot Tendon, Open Approach (ICD-10-PCS; principal; 2019-01-01)
PROC: 0LBK0ZZ Excision of Left Hip Tendon, Open Approach (ICD-10-PCS; 2019-01-01)
PROC: 0JB70ZZ Excision of Back Subcutaneous Tissue and Fascia, Open Approach (ICD-10-PCS; 2019-01-01)
PROC: 0JBR0ZZ Excision of Left Foot Subcutaneous Tissue and Fascia, Open Approach (ICD-10-PCS; 2019-01-01)
PROC: 0JBN0ZZ Excision of Right Lower Leg Subcutaneous Tissue and Fascia, Open Approach (ICD-10-PCS; 2019-01-01)
PROC: 0JBP0ZZ Excision of Left Lower Leg Subcutaneous Tissue and Fascia, Open Approach (ICD-10-PCS; 2019-01-01)
DX: A41.9 Sepsis, unspecified organism (principal); L89.224 Pressure ulcer of left hip, stage 4; I21.4 Non-ST elevation (NSTEMI) myocardial infarction; L89.154 Pressure ulcer of sacral region, stage 4; J96.21 Acute and chronic respiratory failure with hypoxia; N17.9 Acute kidney failure, unspecified; G93.40 Encephalopathy, unspecified; N39.0 Urinary tract infection, site not specified; I50.30 Unspecified diastolic (congestive) heart failure; E87.0 Hyperosmolality and hypernatremia; I42.8 Other cardiomyopathies; I11.0 Hypertensive heart disease with heart failure; E11.9 Type 2 diabetes mellitus without complications; J44.9 Chronic obstructive pulmonary disease, unspecified; M19.90 Unspecified osteoarthritis, unspecified site; F03.90 Unspecified dementia, unspecified severity, without behavioral disturbance, psychotic disturbance, mood disturbance, and anxiety; N40.0 Benign prostatic hyperplasia without lower urinary tract symptoms; E87.5 Hyperkalemia; G40.909 Epilepsy, unspecified, not intractable, without status epilepticus; D64.9 Anemia, unspecified; I48.0 Paroxysmal atrial fibrillation; I44.7 Left bundle-branch block, unspecified; Z79.899 Other long term (current) drug therapy; Z86.73 Personal history of transient ischemic attack (TIA), and cerebral infarction without residual deficits; Z79.4 Long term (current) use of insulin; Z87.442 Personal history of urinary calculi; Z93.1 Gastrostomy status
CPT/HCPCS: 36415; 71045; 80048; 80053; 80061; 81001; 82140; 82962; 84484; 85007; 85025; 86850; 86900; 86901; 87040; 87086; 93005; 93010; 94760; 96365; 96368; G0378; A9270-GY; J0610; J0692; J1650; J3370; J7030; J7040; J7070

== ENCOUNTER 2019-01-12 03:57 | Observation (INO) | payer MEDICARE ==
--- NOTE | 2019-01-12 04:23 | Emergency Department Report ---
ED General Adult HPI - General Chief complaint: Medical Clearance Stated complaint: CHACON CATH OUT Time Seen by Provider: 01/12/19 04:22 Source: EMS (ems notes not available at time of chart dictation), RN notes reviewed, old records reviewed Mode of arrival: Stretcher Limitations: Physical Limitation, Other (patient is demented. Patient is a poor historian.) - History of Present Illness Initial comments: Primary care Dr.: Dr. Gurdeep Portillo Past medical history: Hypertension, stroke, obstructive uropathy, contracture, unstageable sacral ulcers, wound VAC in place, heart disease, diabetes, osteoarthritis, seizure disorder, COPD, dementia This is a 68-year-old gentleman. He is sent to the ER for a Chacon catheter falling out. [facility], [facility], he was found to have his Chacon catheter dislodged, nursing team at jail attempted to replace Chacon catheter, but they met resistance, and were therefore not able to replace it. There is no additional history at this time. There is no complaint of trauma. The patient is demented and is a poor historian. The patient yells nonsensically when he is examined, but he is not able to describe exacerbating or relieving factors, or qualitative nature of his symptoms. -: unknown Radiation: other Quality: other Consistency: other Improves with: other Worsens with: other Associated Symptoms: other - Related Data Home Medications Medication Instructions Recorded Confirmed Last Taken Multivit-Min/Iron Fum/Folic AC 1 each PO DAILY 03/24/18 12/31/18 12/29/18 [Sulty-Zpydmmf-Auokscpg Tablet] Acetaminophen 650 mg NGTUBE Q6H PRN 07/30/18 12/31/18 12/29/18 Ipratropium/Albuterol Sulfate 1 ampul IH BID 07/30/18 12/31/18 12/29/18 [DUONEB *Not for PRN Use*] Tamsulosin [Flomax] 0.4 mg PO QDAY 07/30/18 12/31/18 12/29/18 Vit C/Ascorbate Calcium,Sodium 500 mg NGTUBE BID 07/30/18 12/31/18 12/29/18 [Vitamin C 500 mg/15 ml Liquid] Zinc Sulfate 220 mg NGTUBE QDAY 07/30/18 12/31/18 12/29/18 levETIRAcetam [Keppra INJ] 500 mg PO Q12H 07/30/18 12/31/18 12/29/18 Insulin Aspart [NovoLOG 100 0 unit SQ AC 11/01/18 12/31/18 12/29/18 UNITS/ML VIAL] Previous Rx's Medication Instructions Recorded Last Taken Type Phosphorus #1 [K-Phos Neutral] 250 mg PO QID #30 tablet 08/23/18 12/29/18 Rx AtorvaSTATin [Lipitor] 40 mg NGTUBE QHS #30 tablet 10/21/18 12/29/18 Rx ALBUTEROL NEB's [Proventil 0.083% 2.5 mg IH Q3HRT PRN nebu 12/27/18 12/29/18 Rx NEBS] Carvedilol [Coreg] 6.25 mg PO BID tablet 12/27/18 12/29/18 Rx Cefuroxime Axetil [Ceftin] 500 mg PO Q12H #140 ml 01/02/19 Unknown Rx Allergies Allergy/AdvReac Type Severity Reaction Status Date / Time lisinopril Allergy Unknown Verified 10/01/18 15:17 tramadol Allergy Unknown Verified 07/29/18 18:39 ED Review of Systems ROS: Stated complaint: CHACON CATH OUT Other details as noted in HPI Comment: patient demented, paperwork reviewed ED Past Medical Hx - Past Medical History Hx Hypertension: Yes Hx CVA: Yes Hx Heart Attack/AMI: Yes Hx Congestive Heart Failure: Yes Hx Diabetes: Yes Hx Deep Vein Thrombosis: No Hx Pulmonary Embolism: No Hx GERD: No Hx Liver Disease: No Hx Renal Disease: No Hx Sickle Cell Disease: No Hx Arthritis: Yes Hx Headaches / Migraines: No Hx Seizures: Yes Hx Kidney Stones: Yes Hx Psychiatric Treatment: Yes (Dementia) Hx Asthma: No Hx COPD: Yes Hx Tuberculosis: No Hx Dementia: Yes Hx HIV: No Additional medical history: Benign prostatic hypertrophy - Surgical History Hx Coronary Stent: No Hx Open Heart Surgery: No Hx Pacemaker: No Hx Internal Defibrillator: No Hx Cholecystectomy: No Hx Appendectomy: No Hx Breast Surgery: No Additional Surgical History: debridement of sacral wound, gastrostomy - Social History Smoking Status: Unknown if ever smoked - Medications Home Medications: Home Medications Medication Instructions Recorded Confirmed Last Taken Type Multivit-Min/Iron Fum/Folic AC 1 each PO DAILY 03/24/18 12/31/1812/29/19 History [Vehgb-Ghtginv-Aboozcab Tablet] Acetaminophen 650 mg NGTUBE Q6H PRN 07/30/18 12/31/18 12/29/18 History Ipratropium/Albuterol Sulfate 1 ampul IH BID 07/30/18 12/31/18 12/29/18 History [DUONEB *Not for PRN Use*] Tamsulosin [Flomax] 0.4 mg PO QDAY 07/30/18 12/31/18 12/29/18 History Vit C/Ascorbate Calcium,Sodium 500 mg NGTUBE BID 07/30/18 12/31/18 12/29/18 History [Vitamin C 500 mg/15 ml Liquid] Zinc Sulfate 220 mg NGTUBE QDAY 07/30/18 12/31/18 12/29/18 History levETIRAcetam [Keppra INJ] 500 mg PO Q12H 07/30/18 12/31/18 12/29/18 History Phosphorus #1 [K-Phos Neutral] 250 mg PO QID #30 tablet 08/23/18 12/31/18 12/29/18 Rx AtorvaSTATin [Lipitor] 40 mg NGTUBE QHS #30 tablet 10/21/18 12/31/18 12/29/18 Rx Insulin Aspart [NovoLOG 100 0 unit SQ AC 11/01/18 12/31/18 12/29/18 History UNITS/ML VIAL] ALBUTEROL NEB's [Proventil 0.083% 2.5 mg IH Q3HRT PRN nebu 12/27/18 12/31/18 12/29/18 Rx NEBS] Carvedilol [Coreg] 6.25 mg PO BID tablet 12/27/18 12/31/18 12/29/18 Rx Cefuroxime Axetil [Ceftin] 500 mg PO Q12H #140 ml 01/02/19 Unknown Rx ED Physical Exam - General Limitations: Physical Limitation, Other (dementia) General appearance: in no apparent distress - Head Head exam: Present: atraumatic, normocephalic - Eye Eye exam: Present: normal appearance - ENT ENT exam: Present: mucous membranes dry, normal external ear exam - Neck Neck exam: Present: normal inspection. Absent: tenderness, meningismus - Respiratory Respiratory exam: Present: decreased breath sounds. Absent: respiratory distress, wheezes, rales, rhonchi, stridor - Cardiovascular Cardiovascular Exam: Present: regular rate, normal rhythm, normal heart sounds. Absent: bradycardia, tachycardia, irregular rhythm, systolic murmur, diastolic murmur, rubs, gallop - GI/Abdominal GI/Abdominal exam: Present: soft, other (feeding tube in place with no redness, pus or streaking feeding tube in place with no redness, pus or streaking.). Absent: distended, tenderness, guarding, rebound, rigid, pulsatile mass - Rectal Rectal exam: Present: other (wound vac in place) - exam: Present: normal inspection, other (patient is uncircumcised blood is noted at the urethral meatus). Absent: circumcision - Extremities Exam Extremities exam: Present: other (there is no long bony tenderness. The compartments are soft. Pulses appreciated in the bilateral radial distribution. Femoral pulses appreciated bilaterally.). Absent: normal inspection (contractures noted in the bilateral lower extremities.) - Back Exam Back exam: Present: normal inspection. Absent: tenderness, CVA tenderness (L), muscle spasm, paraspinal tenderness - Neurological Exam Neurological exam: Present: altered, other (patient is demented. Patient yells when he is examined. Sentence structure is nonsensical) - Skin Skin exam: Present: warm ED Course Vital Signs 01/12/19 01/12/19 01/12/19 01:37 04:18 04:31 Temperature Pulse Rate Respiratory Rate Blood Pressure 127/79 127/79 130/64 O2 Sat by Pulse 99 97 Oximetry 01/12/19 01/12/19 01/12/19 04:36 04:46 04:47 Temperature 98.7 F Pulse Rate 96 H Respiratory 19 Rate Blood Pressure O2 Sat by Pulse Oximetry ED Medical Decision Making - Lab Data Result diagrams: 01/12/19 04:37 Vital Signs 01/12/19 01/12/19 01/12/19 01:37 04:18 04:31 Temperature Pulse Rate Respiratory Rate Blood Pressure 127/79 127/79 130/64 O2 Sat by Pulse 99 97 Oximetry 01/12/19 01/12/19 01/12/19 04:36 04:46 04:47 Temperature 98.7 F Pulse Rate 96 H Respiratory 19 Rate Blood Pressure O2 Sat by Pulse Oximetry Lab Results 01/12/19 Range/Units 04:37 Sodium 154 H (137-145) mmol/L Potassium 6.4 H* (3.6-5.0) mmol/L Chloride 122.0 H (98-107) mmol/L Carbon Dioxide 20 L (22-30) mmol/L Anion Gap 18 mmol/L BUN 69 H (9-20) mg/dL Creatinine 1.6 H (0.8-1.5) mg/dL Estimated GFR 52 ml/min BUN/Creatinine Ratio 43 % Glucose 106 H (75-100) mg/dL Calcium 9.4 (8.4-10.2) mg/dL Magnesium 2.80 H (1.7-2.3) mg/dL Total Creatine Kinase 96 (55-170) units/L - EKG Data -: EKG Interpreted by Me EKG shows normal: sinus rhythm Rate: normal - EKG Data 01/12/19 05:35 This is a sinus rhythm, left axis deviation, 90 bpm, left anterior fascicular block, abnormal EKG, no endorsement of chest pain, found to have left bundle branch block morphology, the EKG is abnormal, it is not consistent with ST elevation myocardial infarction. - Medical Decision Making Differential diagnosis, including not limited to: Dehydration, electrolyte kev angement, myositis, dementia, chronic wounds, fully catheter replacement Assessment and plan: 68-year-old gentleman with multiple chronic medical issues, sent to the ER to have a Chacon catheter replaced, replaced easily by nursing staff with coud catheter, laboratory studies demonstrate hyperkalemia, hypernatremia, azotemia. Patient will be treated medically for her hyperkalemia and hypernatremia. Screening EKG ordered. Patient placed on electronic device monitor. Dr. Connor, Hospital physician, excess patient to the medical service for hyperkalemia, hypernatremia. As per review of old medical records, patient has very poor functional status at baseline, apparently, family does not want amputation, and they do not want hospice as well. Overall long-term prognosis is quite poor. Critical Care Time: Yes Critical care time in (mins) excluding proc time.: 35 Critical care attestation.: If time is entered above; I have spent that time in minutes in the direct care of this critically ill patient, excluding procedure time. ED Disposition Clinical Impression: BPH (benign prostatic hypertrophy) with urinary obstruction, Generalized weakness, Acute hyperkalemia, Acute kidney injury, Dementia, Pressure ulcer of left hip, stage 4, Acute hypernatremia Disposition: DC-09 OP ADMIT IP TO THIS HOSP Is pt being admited?: Yes Condition: Poor Referrals: GURDEEP PORTILLO MD [Primary Care Provider] - 3-5 Days
[2019-01-12 05:04] LABS: Calcium 9.4 mg/dL (8.4-10.2)
[2019-01-12] MEDS ORDERED: HumuLIN R IV ONE (05:21)
[2019-01-12] MEDS ORDERED: D50W (25GM) Syringe IV ONE (05:21)
[2019-01-12] MEDS ORDERED: KIONEX PO ONE ×2 (05:21→11:05)
[2019-01-12] MEDS ORDERED: D50W (25GM) Syringe IV PRN ×3 (05:21→08:10)
[2019-01-12] MEDS ORDERED: PROVENTIL IH ONE (05:21)
[2019-01-12] MEDS ORDERED: CALCIUM GLUCONATE 1,000 MG in NACL 0.9% 100 ML IV ONE (05:21)
[2019-01-12] MEDS ORDERED: NACL 0.9% 1000 ML 1,000 ML IV ONE (05:21)
[2019-01-12 05:51] LABS: Hematocrit 26.1 % (35.5-45.6); Hemoglobin 7.9 gm/dl (11.8-15.2); Mean Corpuscular HGB Conc 30 % (32-34); Mean Corpuscular Volume 89 fl (84-94); Platelet Count 416 K/mm3 (140-440); Red Blood Count 2.94 M/mm3 (3.65-5.03); Red Cell Distribution Width 18.3 % (13.2-15.2)
[2019-01-12] MEDS ORDERED: ZOFRAN IV PRN (05:59)
[2019-01-12] MEDS ORDERED: SODIUM CHLORIDE FLUSH SYRINGE 10 ML IV PRN (05:59)
[2019-01-12] MEDS ORDERED: TYLENOL PO PRN ×2 (05:59→08:07)
--- NOTE | 2019-01-12 05:59 | History and Physical Report ---
History of Present Illness Date of examination: 01/12/19 History of present illness: 68 year old man , resident of [facility] with hypertension, CVA, BPH, Diastolic CHF, Contracture, Sacral Decubitus and lower extremities Ulcers, coronary artery disease, diabetes, Seizure Disorder, COPD, Dementia was sent to the emergency room because his Chaudhary was dislodged. In the emergency room labs were done which showed that he is hyponatremic and hyperkalemic, patient is unable to give a history unobtainable. Listless hyperkalemia cocktail in the emergency room . History per chart PAST MEDICAL HISTORY:hypertension, CVA, BPH, Diastolic CHF, Contracture, Sacral Decubitus and lower extremities Ulcers, coronary artery disease, diabetes, Seizure Disorder, COPD, Dementia PAST SURGICAL HISTORY: Unknown FAMILY HISTORY:hypertension, diabetes SOCIAL HISTORY: Denies tobacco, drugs, alcohol Medications and Allergies Allergies Allergy/AdvReac Type Severity Reaction Status Date / Time lisinopril Allergy Unknown Verified 10/01/18 15:17 tramadol Allergy Unknown Verified 07/29/18 18:39 Home Medications Medication Instructions Recorded Confirmed Last Taken Type Multivit-Min/Iron Fum/Folic AC 1 each PO DAILY 03/24/18 12/31/18 12/29/18 History [Fxeno-Ntcgtpk-Kgevebbs Tablet] Acetaminophen 650 mg NGTUBE Q6H PRN 07/30/18 12/31/18 12/29/18 History Ipratropium/Albuterol Sulfate 1 ampul IH BID 07/30/18 12/31/18 12/29/18 History [DUONEB *Not for PRN Use*] Tamsulosin [Flomax] 0.4 mg PO QDAY 07/30/18 12/31/18 12/29/18 History Vit C/Ascorbate Calcium,Sodium 500 mg NGTUBE BID 07/30/18 12/31/18 12/29/18 History [Vitamin C 500 mg/15 ml Liquid] Zinc Sulfate 220 mg NGTUBE QDAY 07/30/18 12/31/18 12/29/18 History levETIRAcetam [Keppra INJ] 500 mg PO Q12H 07/30/18 12/31/18 12/29/18 History Phosphorus #1 [K-Phos Neutral] 250 mg PO QID #30 tablet 08/23/18 12/31/18 12/29/18 Rx AtorvaSTATin [Lipitor] 40 mg NGTUBE QHS #30 tablet 10/21/18 12/31/18 12/29/18 Rx Insulin Aspart [NovoLOG 100 0 unit SQ AC 11/01/18 12/31/18 12/29/18 History UNITS/ML VIAL] ALBUTEROL NEB's [Proventil 0.083% 2.5 mg IH Q3HRT PRN nebu 12/27/18 12/31/18 12/29/18 Rx NEBS] Carvedilol [Coreg] 6.25 mg PO BID tablet 12/27/18 12/31/18 12/29/18 Rx Cefuroxime Axetil [Ceftin] 500 mg PO Q12H #140 ml 01/02/19 Unknown Rx Active Meds: Active Medications Dextrose (D50w (25gm) Syringe) 50 ml IV PRN PRN PRN Reason: Hypoglycemia Dextrose (D5w) 1,000 mls @ 0 mls/hr IV DIRECT NORA Exam - Physical Exam Narrative exam: General Apperance: The patient sitting in bed no acute distress HEENT: Normocephalic, atraumatic. Pupils equally round and reactive to light, extraocular movement intact, and no sclericterus or JVD or thyromegaly or nodule. Neck supple, no carotid bruit, mucous membranes moist, no exudate or erythema Heart: S1-S2, regular is rhythm Lungs: Clear to auscultation bilaterally, breathing comfortable Abdomen: Positive bowel sounds, soft,+peg, nontender, nondistended, no organomegaly Extremities: No edema cyanosis clubbing Skin: sacral decub and lower extremity ulcers, no rash, nodule, warm and dry Neuro: Difficult to assess, moving 4 extremities, speech is fluent - Constitutional Vitals: Temp Pulse Resp BP Pulse Ox 98.7 F 96 H 19 130/64 97 01/12/19 04:46 01/12/19 04:47 01/12/19 04:36 01/12/19 04:31 01/12/19 04:31 Results - Labs CBC & Chem 7: 01/12/19 05:34 01/12/19 04:37 Labs: Abnormal lab results 01/12/19 01/12/19 Range/Units 04:37 05:34 RBC 2.94 L (3.65-5.03) M/mm3 Hgb 7.9 L (11.8-15.2) gm/dl Hct 26.1 L (35.5-45.6) % MCH 27 L (28-32) pg MCHC 30 L (32-34) % RDW 18.3 H (13.2-15.2) % Sodium 154 H (137-145) mmol/L Potassium 6.4 H* (3.6-5.0) mmol/L Chloride 122.0 H (98-107) mmol/L Carbon Dioxide 20 L (22-30) mmol/L BUN 69 H (9-20) mg/dL Creatinine 1.6 H (0.8-1.5) mg/dL Glucose 106 H (75-100) mg/dL Magnesium 2.80 H (1.7-2.3) mg/dL Assessment and Plan Assessment: Hypernatremia Hyperkalemia hypertension CVA BPH Diastolic CHF, stable Sacral Decubitus and lower extremities Ulcers coronary artery disease diabetes Seizure Disorder COPD Dementia Plan Admit to medicine Start D5W, check sodium level, potassium level Check fingersticks, consult dietary for tube feed Continue appropriate outpatient medications DVT prophylaxis
[2019-01-12] MEDS ORDERED: D5W 1,000 ML IV SCH ×2 (06:00→07:00)
[2019-01-12] MEDS ORDERED: SODIUM BICARBONATE FEEDTUBE PRN ×2 (06:36→09:27)
[2019-01-12] MEDS ORDERED: SIMPLE SYRUP FEEDTUBE PRN ×4 (06:36→09:27)
[2019-01-12] MEDS ORDERED: PANCREAZE DR 10,500 UNIT FEEDTUBE PRN ×2 (06:36→09:27)
[2019-01-12 07:18] LABS: Bilirubin,Urine NEG (Negative); Blood,Urine SM (Negative); Color,Urine Yellow (Yellow); Mucus,Urine FEW /HPF; Urobilinogen,Urine < 2.0 mg/dL (<2.0)
[2019-01-12] MEDS ORDERED: NACL 0.9% 500 ML 500 ML IV ONE (07:48)
[2019-01-12] MEDS ORDERED: PROVENTIL IH PRN (08:07)
[2019-01-12] MEDS ORDERED: LEVETIRACETAM 500 MG PO SCH (08:15)
[2019-01-12] MEDS ORDERED: K-PHOS NEUTRAL PO SCH (10:00)
[2019-01-12] MEDS ORDERED: LOVENOX SUB-Q SCH (10:00)
[2019-01-12] MEDS ORDERED: SODIUM CHLORIDE FLUSH SYRINGE 10 ML IV SCH (10:00)
[2019-01-12] MEDS ORDERED: COREG PO SCH (10:00)
[2019-01-12] MEDS ORDERED: THERAGRAN-M Tab PO SCH (10:00)
[2019-01-12] MEDS ORDERED: ASCORBATE CALCIUM SODIUM NGTUBE SCH (10:00)
[2019-01-12] MEDS ORDERED: ZINC SULFATE PO SCH (10:00)
[2019-01-12] MEDS ORDERED: FLOMAX PO SCH (10:00)
[2019-01-12] MEDS ORDERED: DUONEB *Not for PRN Use IH SCH (10:00)
[2019-01-12] MEDS ORDERED: NON-FORMULARY (Multivit-Min/Iron Fum/Folic Ac [Multi-Vitamin-Minerals Tablet] 1 EACH) PO SCH (10:00)
[2019-01-12] MEDS ORDERED: NON-FORMULARY (Zinc Sulfate [Zinc Sulfate] 220 MG) NGTUBE SCH (10:00)
[2019-01-12] MEDS ORDERED: KEPPRA PO SCH (10:00)
[2019-01-12] MEDS ORDERED: VIT C NGTUBE SCH (10:00)
[2019-01-12 10:16] LABS: BUN/Creatinine Ratio 42; Blood Urea Nitrogen 59 mg/dL (9-20); Calcium 9.3 mg/dL (8.4-10.2); Hemolysis Index 27
--- NOTE | 2019-01-12 11:10 | Discharge Summary ---
Providers - Providers Date of Admission: 01/12/19 Date of discharge: 01/12/19 Attending physician: TRACEY ROTH MD 01/12/19 06:03 Consult to Wound/ET Nurse [CONS] Routine Reason For Exam: wound eval 01/12/19 06:36 Consult to Dietitian/Nutrition [CONS] Routine Physician Instructions: Assess nutrtn needs, initiate, modify, manage TF Reason For Exam: Reason for Consult: Write/Manage Tube Feeding Reason for Consult: Write/Manage Tube Feeding Primary care physician: RAMSEY PORTILLO Hospitalization Reason for admission: bright issues Condition: Poor Hospital course: 68 year old man , resident of [facility] with hypertension, CVA, BPH, Diastolic CHF, Contracture, Sacral Decubitus and lower extremities Ulcers, coronary artery disease, diabetes, Seizure Disorder, COPD, Dementia was sent to the emergency room because his Bright was dislodged. In the emergency room labs were done which showed that he is hyponatremic and hyperkalemic, patient is unable to give a history unobtainable. Listless hyperkalemia cocktail in the emergency room . History per chart Bright was replaced in the ED. Incendentaly, patient was found with electrolytes abnormality and dehydration. This was corrected and patient discharged potassium improved bright replace patient back to baseline mentation can be discharged, advise increase free water at the facility. Hypernatremia Hyperkalemia hypertension CVA BPH Diastolic CHF, stable Sacral Decubitus and lower extremities Ulcers coronary artery disease diabetes Seizure Disorder COPD Dementia Disposition: DC/TX-06 HOME UNDER HOME [facility] Time spent for discharge: 35 mins Core Measure Documentation - Palliative Care Palliative Care/ Comfort Measures: Not Applicable - Core Measures Any of the following diagnoses?: none Exam - Physical Exam Narrative exam: General Appearance: The patient, contracted HEENT: Normocephalic, atraumatic. Pupils equally round and reactive to light, extraocular movement intact, and no sclericterus or JVD or thyromegaly or nodule. Neck supple, no carotid bruit, mucous membranes moist, no exudate or erythema Heart: S1-S2, regular is rhythm Lungs: Clear to auscultation bilaterally, breathing comfortable Abdomen: Positive bowel sounds, soft,+peg, nontender, nondistended, no organomegaly Extremities: No edema cyanosis clubbing Skin: sacral decub and lower extremity ulcers, no rash, nodule, warm and dry Neuro: Difficult to assess, moving 4 extremities, - Constitutional Vitals: Temp Pulse Resp BP Pulse Ox 98.7 F 87 22 113/56 96 01/12/19 04:46 01/12/19 10:15 01/12/19 10:15 01/12/19 10:15 01/12/19 10:15 Plan Activity: advance as tolerated, fall precautions Diet: diabetic, per dietitian instruction Additional Instructions: repeat BMP in 2 days Follow up with: RAMSEY PORTILLO MD [Primary Care Provider] - 3-5 Days FABRICIO WASHINGTON MD [Staff Physician] - 7 Days
[2019-01-12] MEDS ORDERED: HumaLOG SUB-Q SCH (11:30)
[2019-01-12] MEDS ORDERED: FREE WATER PO ONE (12:00)
[2019-01-12 12:49] VITALS: BP 136/65
[2019-01-12] MEDS ORDERED: LANTUS SUB-Q SCH (22:00)
== END 2019-01-12 13:03 | disposition home health service (06) ==
LOC: ED 03:57 → SUATTDRO 03:57 → INTOOBSV 11:21 → 2B-ACE 11:21
PROVIDERS: ADMIT Internal Medicine; ATTEND Internal Medicine
DX: E87.1 Hypo-osmolality and hyponatremia (principal); E87.6 Hypokalemia; I11.0 Hypertensive heart disease with heart failure; I50.30 Unspecified diastolic (congestive) heart failure; N40.0 Benign prostatic hyperplasia without lower urinary tract symptoms; E11.621 Type 2 diabetes mellitus with foot ulcer; I25.10 Atherosclerotic heart disease of native coronary artery without angina pectoris; G40.909 Epilepsy, unspecified, not intractable, without status epilepticus; J44.9 Chronic obstructive pulmonary disease, unspecified; F03.90 Unspecified dementia, unspecified severity, without behavioral disturbance, psychotic disturbance, mood disturbance, and anxiety; Z86.73 Personal history of transient ischemic attack (TIA), and cerebral infarction without residual deficits
CPT/HCPCS: 36415; 80048; 81001; 82550; 82962; 83735; 85027; 87086; 93005; 93010; 94644; 96372; 96374; 96375; 99291; G0378; J0610; J7040; J7070; J1815

== ENCOUNTER 2019-01-15 17:59 | Inpatient (IN) | payer MEDICARE ==
[2019-01-15] MEDS ORDERED: NACL 0.9% 1000 ML 1,000 ML IV ONE ×3 (18:35→18:42)
--- NOTE | 2019-01-15 18:39 | Emergency Department Report ---
ED Medical Clearance HPI - General Chief complaint: Medical Clearance Stated complaint: ABNORMAL LABS Time Seen by Provider: 01/15/19 18:10 Source: EMS (ems notes not available at time of chart dictation), RN notes reviewed, old records reviewed Mode of arrival: Stretcher Limitations: Physical Limitation, Other (patient demented and is a poor historian) - History of Present Illness Initial comments: This is a 68-year-old gentleman. I have recently evaluated this patient. Please see my recent history and physical for the full details of the patient's past medical history. Patient resides in [facility], and his primary care doctor is Dr. العراقي. The patient is sent to the ER for complaint of reported nontraumatic painless hyperkalemia. He recently had laboratory studies performed which demonstrated a potassium of 6.6. Reportedly, he was given Kayexalate, an order for one half normal saline at 75 mL/h 2 L. In the emergency room, the patient endorses no complaints. The patient is a poor historian. As per review of recent discharge summary, patient admitted to this hospital for hyperkalemia, mild renal insufficiency, and was apparently discharged with a sodium of 156. Patient not able to describe exacerbating or relieving factors, qualitative nature of his symptoms, exacerbating, or radiation. He does not appear to have any complaints at this time. He is resting comfortably in his stretcher, and in no acute distress. Includes laboratory studies, performed on December 30 indicated potassium of 6.2. Complaint: medical clearance request Reason for Medical Clearance: laboratory abnormality Home medications: Home Medications Medication Instructions Recorded Confirmed Last Taken Multivit-Min/Iron Fum/Folic AC 1 each PO DAILY 03/24/18 12/31/18 12/29/18 [Xzcde-Bibcglu-Zxvwbvtp Tablet] Acetaminophen 650 mg NGTUBE Q6H PRN 07/30/18 12/31/18 12/29/18 Ipratropium/Albuterol Sulfate 1 ampul IH BID 07/30/18 12/31/18 12/29/18 [DUONEB *Not for PRN Use*] Tamsulosin [Flomax] 0.4 mg PO QDAY 07/30/18 12/31/18 12/29/18 Vit C/Ascorbate Calcium,Sodium 500 mg NGTUBE BID 07/30/18 12/31/18 12/29/18 [Vitamin C 500 mg/15 ml Liquid] Zinc Sulfate 220 mg NGTUBE QDAY 07/30/18 12/31/18 12/29/18 levETIRAcetam [Keppra INJ] 500 mg PO Q12H 07/30/18 12/31/18 12/29/18 Insulin Aspart [NovoLOG 100 0 unit SQ AC 11/01/18 12/31/18 12/29/18 UNITS/ML VIAL] Previous Rx's Medication Instructions Recorded Last Taken Type Phosphorus #1 [K-Phos Neutral] 250 mg PO QID #30 tablet 08/23/18 12/29/18 Rx AtorvaSTATin [Lipitor] 40 mg NGTUBE QHS #30 tablet 10/21/18 12/29/18 Rx ALBUTEROL NEB's [Proventil 0.083% 2.5 mg IH Q3HRT PRN nebu 12/27/18 12/29/18 Rx NEBS] Carvedilol [Coreg] 6.25 mg PO BID tablet 12/27/18 12/29/18 Rx Cefuroxime Axetil [Ceftin] 500 mg PO Q12H #140 ml 01/02/19 Unknown Rx Allergies/Adverse reactions: Allergies Allergy/AdvReac Type Severity Reaction Status Date / Time lisinopril Allergy Unknown Verified 10/01/18 15:17 tramadol Allergy Unknown Verified 07/29/18 18:39 ED Review of Systems ROS: Stated complaint: ABNORMAL LABS Other details as noted in HPI Comment: demented poor historian Respiratory: denies: cough Cardiovascular: denies: chest pain Gastrointestinal: denies: abdominal pain Neurological: denies: headache ED Past Medical Hx - Past Medical History Hx Hypertension: Yes Hx CVA: Yes Hx Heart Attack/AMI: Yes Hx Congestive Heart Failure: Yes Hx Diabetes: Yes Hx Deep Vein Thrombosis: No Hx Pulmonary Embolism: No Hx GERD: No Hx Liver Disease: No Hx Renal Disease: No Hx Sickle Cell Disease: No Hx Arthritis: Yes Hx Headaches / Migraines: No Hx Seizures: Yes Hx Kidney Stones: Yes Hx Psychiatric Treatment: Yes (Dementia) Hx Asthma: No Hx COPD: Yes Hx Tuberculosis: No Hx Dementia: Yes Hx HIV: No Additional medical history: Benign prostatic hypertrophy - Surgical History Hx Coronary Stent: No Hx Open Heart Surgery: No Hx Pacemaker: No Hx Internal Defibrillator: No Hx Cholecystectomy: No Hx Appendectomy: No Hx Breast Surgery: No Additional Surgical History: debridement of sacral wound, gastrostomy - Social History Smoking Status: Unknown if ever smoked - Medications Home Medications: Home Medications Medication Instructions Recorded Confirmed Last Taken Type Multivit-Min/Iron Fum/Folic AC 1 each PO DAILY 03/24/18 12/31/18 12/29/18 History [Tshoy-Aewjsuk-Lbxrrwer Tablet] Acetaminophen 650 mg NGTUBE Q6H PRN 07/30/18 12/31/18 12/29/18 History Ipratropium/Albuterol Sulfate 1 ampul IH BID 07/30/18 12/31/18 12/29/18 History [DUONEB *Not for PRN Use*] Tamsulosin [Flomax] 0.4 mg PO QDAY 07/30/18 12/31/18 12/29/18 History Vit C/Ascorbate Calcium,Sodium 500 mg NGTUBE BID 07/30/18 12/31/18 12/29/18 History [Vitamin C 500 mg/15 ml Liquid] Zinc Sulfate 220 mg NGTUBE QDAY 07/30/18 12/31/18 12/29/18 History levETIRAcetam [Keppra INJ] 500 mg PO Q12H 07/30/18 12/31/18 12/29/18 History Phosphorus #1 [K-Phos Neutral] 250 mg PO QID #30 tablet 08/23/18 12/31/18 12/29/18 Rx AtorvaSTATin [Lipitor] 40 mg NGTUBE QHS #30 tablet 10/21/18 12/31/18 12/29/18 Rx Insulin Aspart [NovoLOG 100 0 unit SQ AC 11/01/18 12/31/18 12/29/18 History UNITS/ML VIAL] ALBUTEROL NEB's [Proventil 0.083% 2.5 mg IH Q3HRT PRN nebu 12/27/18 12/31/18 12/29/18 Rx NEBS] Carvedilol [Coreg] 6.25 mg PO BID tablet 12/27/18 12/31/18 12/29/18 Rx Cefuroxime Axetil [Ceftin] 500 mg PO Q12H #140 ml 01/02/19 Unknown Rx ED Physical Exam - General Limitations: Physical Limitation General appearance: in no apparent distress - Head Head exam: Present: atraumatic, normocephalic - Eye Eye exam: Present: normal appearance - ENT ENT exam: Present: normal orophraynx, mucous membranes moist, normal external ear exam - Neck Neck exam: Present: normal inspection. Absent: tenderness, meningismus - Respiratory Respiratory exam: Present: decreased breath sounds. Absent: respiratory distress, wheezes, rales, rhonchi, stridor - Cardiovascular Cardiovascular Exam: Present: normal rhythm, normal heart sounds. Absent: systolic murmur, diastolic murmur, rubs, gallop - GI/Abdominal GI/Abdominal exam: Present: soft, other (bright cath in place). Absent: distended, tenderness, guarding, rebound, rigid, pulsatile mass - Rectal Rectal exam: Present: deferred - exam: Present: normal inspection - Extremities Exam Extremities exam: Present: other (multiple contractures noted. Multiple chronic appearing lower extremity wounds noted. Chronic sacral ulcers noted.). Absent: normal inspection - Back Exam Back exam: Present: normal inspection. Absent: CVA tenderness (R), CVA tenderness (L), paraspinal tenderness, vertebral tenderness - Neurological Exam Neurological exam: Present: other (the patient is awake. Patient answers simple yes no questions. Patient has chronic contractures in the upper and lower extremities. Detailed neurologic examination is limited secondary to patient's underlying medical comorbidities.) - Skin Skin exam: Present: warm ED Course Vital Signs 01/15/19 01/15/19 01/15/19 14:41 15:00 16:00 Temperature Pulse Rate 77 79 81 Respiratory 25 H 22 26 H Rate Blood Pressure 112/58 112/58 111/63 Blood Pressure [Left] O2 Sat by Pulse Oximetry 01/15/19 01/15/19 01/15/19 17:00 18:03 18:24 Temperature Pulse Rate 90 104 H 104 H Respiratory 26 H 20 33 H Rate Blood Pressure 110/71 128/68 Blood Pressure 106/60 [Left] O2 Sat by Pulse 97 Oximetry 01/15/19 01/15/19 01/15/19 18:42 18:43 19:00 Temperature 100.5 F H Pulse Rate 105 H 105 H Respiratory 29 H 29 H 34 H Rate Blood Pressure 113/70 Blood Pressure 119/68 [Left] O2 Sat by Pulse 95 94 Oximetry 01/15/19 01/15/19 01/15/19 20:00 21:00 22:01 Temperature Pulse Rate 104 H 97 H 110 H Respiratory 31 H 25 H 30 H Rate Blood Pressure 102/63 101/68 104/77 Blood Pressure [Left] O2 Sat by Pulse Oximetry 01/15/19 01/15/19 01/15/19 22:11 22:21 22:31 Temperature Pulse Rate 103 H 101 H 102 H Respiratory 41 H 37 H 39 H Rate Blood Pressure 104/77 104/77 104/77 Blood Pressure [Left] O2 Sat by Pulse Oximetry 01/15/19 22:41 Temperature Pulse Rate 102 H Respiratory 36 H Rate Blood Pressure 104/77 Blood Pressure [Left] O2 Sat by Pulse Oximetry - Reevaluation(s) Reevaluation #1: 01/15/19 18:39 Differential diagnosis, including but not limited to: Hyperkalemia, renal insufficiency, hypernatremia, dehydration, laboratory error Assessment and plan: 68-year-old gentleman sent to the ER for hyperkalemia. He does not have any complaints at this time. His exam today is similar to his prior examination. Screening laboratory studies ordered. IV fluids ordered. Update at 6:41 PM. Patient found to have rectal temperature 100.5 degrees. Patient also tachycardic. Additional laboratory studies, blood culture, lactic acid ordered, urinalysis, urine culture ordered. X-ray the chest ordered. Plan to admit for acute febrile illness, presumed dehydration, electrolyte derangement. Reevaluation #2: 01/15/19 19:32 Patient felt to have acute renal insufficiency, hyperkalemia, UTI versus colonization. 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 Hyperkalemia cocktail is ordered. Hospital physician is paged, discussed with Dr. Tapan Bryant; he states he will have his nurse practitioner come down to take the information for admission. 01/15/19 19:49 Discussed with nephrology on-call, Dr. Sanchez, who recommends medical management, and repeat potassium in 2-3 hours. Requests immediate callback potassium on repeat laboratory studies greater than 6.0. The aforementioned hospital physician has accepted the patient to the medical service, inpatient team agrees to follow up on repeat potassium. ED Medical Decision Making - Lab Data Result diagrams: 01/17/19 06:15 01/17/19 06:15 Vital Signs 01/15/19 01/15/19 01/15/19 18:03 18:42 18:43 Temperature 100.5 F H Pulse Rate 104 H 105 H Respiratory 20 29 H 29 H Rate Blood Pressure 106/60 119/68 [Left] O2 Sat by Pulse 97 95 94 Oximetry Labs 01/15/19 01/15/19 01/15/19 18:27 18:27 18:27 WBC 5.1 RBC 4.60 Hgb 13.6 Hct 39.4 MCV 86 MCH 30 MCHC 34 RDW 15.4 H Plt Count 225 Sodium 149 H Potassium 6.7 H* D Chloride 110.5 H Carbon Dioxide 23 Anion Gap 22 BUN 111 H Creatinine 3.6 H D Estimated GFR 20 BUN/Creatinine Ratio 31 Glucose 98 Calcium 8.8 Magnesium 2.20 Total Creatine Kinase 160 Urine Color Urine Turbidity Urine pH Ur Specific [place] Urine Protein Urine Glucose (UA) Urine Ketones Urine Blood Urine Nitrite Urine Bilirubin Urine Urobilinogen Ur Leukocyte Esterase Urine WBC (Auto) Urine RBC (Auto) Urine Bacteria (Auto) Urine WBC Clumps Urine Mucus 01/15/19 18:50 WBC RBC Hgb Hct MCV MCH MCHC RDW Plt Count Sodium Potassium Chloride Carbon Dioxide Anion Gap BUN Creatinine Estimated GFR BUN/Creatinine Ratio Glucose Calcium Magnesium Total Creatine Kinase Urine Color Yellow Urine Turbidity Cloudy Urine pH 8.0 H Ur Specific [place] 1.015 Urine Protein 100 mg/dl Urine Glucose (UA) Neg Urine Ketones Neg Urine Blood Sm Urine Nitrite Neg Urine Bilirubin Neg Urine Urobilinogen < 2.0 Ur Leukocyte Esterase Lg Urine WBC (Auto) > 182.0 H Urine RBC (Auto) 14.0 Urine Bacteria (Auto) 1+ Urine WBC Clumps 3+ Urine Mucus Few - EKG Data -: EKG Interpreted by Mo EKG shows normal: sinus rhythm Rate: tachycardia - EKG Data When compared to previous EKG there are: no significant change 01/15/19 19:33 This is a sinus tachycardia, 107 bpm, left axis deviation, left bundle branch block, left anterior fascicular block, QTC is prolonged, NM intervals within normal limits, there is no endorsement of chest pain, the EKG is abnormal, the EKG is not consistent with ST elevation myocardial infarction, and it appears to be unchanged from prior EKG from 01/12/2019 - Radiology Data Radiology results: pending, report reviewed, image reviewed COMPARISON: 12/30/2018 FINDINGS: SUPPORT DEVICES: None. HEART / MEDIASTINUM: No significant abnormality. LUNGS / PLEURA: No significant pulmonary or pleural abnormality. No pneumothorax. ADDITIONAL FINDINGS: No significant additional findings. IMPRESSION: 1. No acute findings. Signer Name: Adalberto Lopez MD Signed: 01/15/2019 10:00 PM Workstation Name: [id number] Transcribed By: KAMINI Dictated By: Adalberto Lopez MD Electronically Authenticated By: Adalberto Lopez MD Signed Date/Time: 01/15/19 2200 ED Disposition Clinical Impression: Acute febrile illness, UTI (lower urinary tract infection), Acute hyperkalemia, [id number] renal failure Disposition: [id number] OP ADMIT IP TO THIS HOSP Is pt being admited?: Yes Does the pt Need Aspirin: No Condition: Fair Critical Care Time: Yes Critical care time in (mins) excluding proc time.: 35 Critical care attestation.: If time is entered above; I have spent that time in minutes in the direct care of this critically ill patient, excluding procedure time.
[2019-01-15] MEDS ORDERED: TYLENOL FEEDTUBE STA (18:42)
[2019-01-15] MEDS ORDERED: VANCOMYCIN 1,250 MG in NACL 0.9% 500 ML 500 ML IV ONE (18:44)
[2019-01-15 19:00] LABS: Hematocrit 39.4 % (35.5-45.6); Hemoglobin 13.6 gm/dl (11.8-15.2); Mean Corpuscular HGB Conc 34 % (32-34); Mean Corpuscular Volume 86 fl (84-94); Platelet Count 225 K/mm3 (140-440); Red Cell Distribution Width 15.4 % (13.2-15.2)
[2019-01-15 19:14] LABS: Calcium 8.8 mg/dL (8.4-10.2)
[2019-01-15 19:15] LABS: Bacteria,Urine 1+ /HPF (Negative); Bilirubin,Urine NEG (Negative); Blood,Urine SM (Negative); Color,Urine Yellow (Yellow); Mucus,Urine FEW /HPF; Urobilinogen,Urine < 2.0 mg/dL (<2.0)
[2019-01-15 19:16] LABS: WBC,Urine > 182.0 /HPF (0.0-6.0)
[2019-01-15] MEDS ORDERED: PROVENTIL IH ONE (19:29)
[2019-01-15] MEDS ORDERED: ZOSYN/NS 3.375GM/50ML 3.375 GM/50 ML BAG IV ONE (19:30)
[2019-01-15] MEDS ORDERED: D50W (25GM) Syringe IV PRN (19:31)
[2019-01-15] MEDS ORDERED: KIONEX PO ONE (19:31)
[2019-01-15] MEDS ORDERED: HumuLIN R IV ONE (19:31)
[2019-01-15] MEDS ORDERED: D50W (25GM) Syringe IV ONE ×2 (19:31→20:30)
[2019-01-15 19:35] LABS: INR 1.51 (0.87-1.13)
[2019-01-15] MEDS ORDERED: VANCOMYCIN 1,250 MG in NACL 0.9% 250ML 250 ML IV ONE (20:00)
[2019-01-15] MEDS ORDERED: HumuLIN R ONE (20:28)
[2019-01-15] MEDS ORDERED: TYLENOL ONE (20:29)
[2019-01-15] MEDS ORDERED: KIONEX ONE (20:30)
[2019-01-15] MEDS ORDERED: CALCIUM GLUCONATE 1,000 MG in NACL 0.9% 100 ML IV ONE (20:30)
[2019-01-15] MEDS ORDERED: SODIUM CHLORIDE FLUSH SYRINGE 10 ML IV PRN (21:06)
[2019-01-15] MEDS ORDERED: ZOFRAN IV PRN (21:06)
[2019-01-15] MEDS ORDERED: PROVENTIL IH PRN (21:28)
--- NOTE | 2019-01-15 21:35 | Consultation ---
History of Present Illness - History of Present Illness A/p MÓNICA with hyperkalemia , no sig EKG mateo d/w ER MD earlier today Treat for hyperkalemia medically if fails will need dialysis Needs medical treatment for hyperkalemia that includes IVF Dextrose bicarb calcium albuterol and Kayexalate , Lactic acidosis multifactorial , needs follow up Prognosis is guarded to poor. Supportive care Will follow Medications and Allergies Allergies Allergy/AdvReac Type Severity Reaction Status Date / Time lisinopril Allergy Unknown Verified 10/01/18 15:17 tramadol Allergy Unknown Verified 07/29/18 18:39 Home Medications Medication Instructions Recorded Confirmed Last Taken Type Multivit-Min/Iron Fum/Folic AC 1 each PO DAILY 03/24/18 12/31/18 12/29/18 History [Qpbeq-Nqzqizd-Kyjteyoc Tablet] Acetaminophen 650 mg NGTUBE Q6H PRN 07/30/18 12/31/18 12/29/18 History Ipratropium/Albuterol Sulfate 1 ampul IH BID 07/30/18 12/31/18 12/29/18 History [DUONEB *Not for PRN Use*] Tamsulosin [Flomax] 0.4 mg PO QDAY 07/30/18 12/31/18 12/29/18 History Vit C/Ascorbate Calcium,Sodium 500 mg NGTUBE BID 07/30/18 12/31/18 12/29/18 History [Vitamin C 500 mg/15 ml Liquid] Zinc Sulfate 220 mg NGTUBE QDAY 07/30/18 12/31/18 12/29/18 History levETIRAcetam [Keppra INJ] 500 mg PO Q12H 07/30/18 12/31/18 12/29/18 History Phosphorus #1 [K-Phos Neutral] 250 mg PO QID #30 tablet 08/23/18 12/31/18 12/29/18 Rx AtorvaSTATin [Lipitor] 40 mg NGTUBE QHS #30 tablet 10/21/18 12/31/18 12/29/18 Rx Insulin Aspart [NovoLOG 100 0 unit SQ AC 11/01/18 12/31/18 12/29/18 History UNITS/ML VIAL] ALBUTEROL NEB's [Proventil 0.083% 2.5 mg IH Q3HRT PRN nebu 0812/31/18 12/29/18 Rx NEBS] Carvedilol [Coreg] 6.25 mg PO BID tablet 12/27/18 12/31/18 12/29/18 Rx Cefuroxime Axetil [Ceftin] 500 mg PO Q12H #140 ml 01/02/19 Unknown Rx Active Meds: Active Medications Acetaminophen (Tylenol) 650 mg PO Q4H PRN PRN Reason: Pain MILD(1-3)/Fever >100.5/PRICE Albuterol (Proventil) 2.5 mg IH Q4HRT PRN PRN Reason: Shortness Of Breath Dextrose (D50w (25gm) Syringe) 50 ml IV PRN PRN PRN Reason: Hypoglycemia Heparin Sodium (Porcine) (Heparin) 5,000 unit SUB-Q Q12HR NORA Vancomycin HCl 1,250 mg/ (Sodium Chloride) 275 mls @ 166.667 mls/hr IV ONCE ONE Stop: 01/15/19 21:38 Dextrose/Sodium Chloride (D5/0.45ns) 1,000 mls @ 42 mls/hr IV DIRECT NORA Ceftriaxone Sodium (Rocephin/Ns 1 Gm/50 Ml) 1 gm in 50 mls @ 100 mls/hr IV Q24HR NORA; Protocol Insulin Human Regular (Humulin R) 0 units SUB-Q Q4HR NORA; Protocol Ondansetron HCl (Zofran) 4 mg IV Q6H PRN PRN Reason: Nausea And Vomiting Sodium Chloride (Sodium Chloride Flush Syringe 10 Ml) 10 ml IV BID NORA Sodium Chloride (Sodium Chloride Flush Syringe 10 Ml) 10 ml IV PRN PRN PRN Reason: LINE FLUSH Exam - Vital Signs Vital signs: Vital Signs Pulse Resp BP 77 25 H 112/58 01/15/19 14:41 01/15/19 14:41 01/15/19 14:41 Results - Lab Results 01/15/19 18:27 01/15/19 18:27 Most recent lab results Calcium 8.8 mg/dL (8.4-10.2) 01/15/19 18:27 Magnesium 2.20 mg/dL (1.7-2.3) 01/15/19 18:27
--- NOTE | 2019-01-15 21:39 | History and Physical Report ---
<MAN LIANG - Last Filed: 01/15/19 22:14> History of Present Illness Date of examination: 01/15/19 Date of admission: 01/15/19 19:51 Chief complaint: Medical clearance for previous abnormal labs History of present illness: 68-year-old male who is a resident of [facility] with history of hypertension, CVA, BPH, CHF, contracture upper and lower extremities, sacral pressure ulcer, bilateral lower extremity pressure ulcer, CAD, DM, seizure, COPD, dementia who presents to [facility] ED for hyperkalemia. Pt is a poor historian and unable to provide history. History is taken from medical records. Pt's was seen in ED on 01/12 and was found to have potassium of 6.4. He was treated with IVF and Kayexalate and discharged home. Patient is here for medical clearance of abnormal lab value. His PCP is Dr. العراقي. Past History Past Medical History: CAD, COPD, diabetes, heart failure, hypertension, seizures, stroke, other (BPH, contracture, dementia, sacral pressure ulcer, lower extremity pressure ulcers) Past Surgical History: Other (debridement of sacral wound, gastrostomy) Social history: other (resident of [facility]) Family history: no significant family history Medications and Allergies Allergies Allergy/AdvReac Type Severity Reaction Status Date / Time lisinopril Allergy Unknown Verified 10/01/18 15:17 tramadol Allergy Unknown Verified 07/29/18 18:39 Home Medications Medication Instructions Recorded Confirmed Last Taken Type Multivit-Min/Iron Fum/Folic AC 1 each PO DAILY 03/24/18 12/31/18 12/29/18 History [Fytsf-Gvegkuz-Fppougbz Tablet] Acetaminophen 650 mg NGTUBE Q6H PRN 07/30/18 12/31/18 12/29/18 History Ipratropium/Albuterol Sulfate 1 ampul IH BID 07/30/18 12/31/18 12/29/18 History [DUONEB *Not for PRN Use*] Tamsulosin [Flomax] 0.4 mg PO QDAY 07/30/18 12/31/18 12/29/18 History Vit C/Ascorbate Calcium,Sodium 500 mg NGTUBE BID 07/30/18 12/31/18 12/29/18 History [Vitamin C 500 mg/15 ml Liquid] Zinc Sulfate 220 mg NGTUBE QDAY 07/30/18 12/31/18 12/29/18 History levETIRAcetam [Keppra INJ] 500 mg PO Q12H 07/30/18 12/31/18 12/29/18 History Phosphorus #1 [K-Phos Neutral] 250 mg PO QID #30 tablet 08/23/18 12/31/18 12/29/18 Rx AtorvaSTATin [Lipitor] 40 mg NGTUBE QHS #30 tablet 10/21/18 12/31/18 12/29/18 Rx Insulin Aspart [NovoLOG 100 0 unit SQ AC 11/01/18 12/31/18 12/29/18 History UNITS/ML VIAL] ALBUTEROL NEB's [Proventil 0.083% 2.5 mg IH Q3HRT PRN nebu 12/27/18 12/31/18 12/29/18 Rx NEBS] Carvedilol [Coreg] 6.25 mg PO BID tablet 12/27/18 12/31/18 12/29/18 Rx Cefuroxime Axetil [Ceftin] 500 mg PO Q12H #140 ml 01/02/19 Unknown Rx Active Meds: Active Medications Acetaminophen (Tylenol) 650 mg PO Q4H PRN PRN Reason: Pain MILD(1-3)/Fever >100.5/PRICE Albuterol (Proventil) 2.5 mg IH Q4HRT PRN PRN Reason: Shortness Of Breath Dextrose (D50w (25gm) Syringe) 50 ml IV PRN PRN PRN Reason: Hypoglycemia Heparin Sodium (Porcine) (Heparin) 5,000 unit SUB-Q Q12HR NORA Vancomycin HCl 1,250 mg/ (Sodium Chloride) 275 mls @ 166.667 mls/hr IV ONCE ONE Stop: 01/15/19 21:38 Dextrose/Sodium Chloride (D5/0.45ns) 1,000 mls @ 42 mls/hr IV DIRECT NORA Ceftriaxone Sodium (Rocephin/Ns 1 Gm/50 Ml) 1 gm in 50 mls @ 100 mls/hr IV Q24HR NORA; Protocol Insulin Human Regular (Humulin R) 0 units SUB-Q Q4HR NORA; Protocol Ondansetron HCl (Zofran) 4 mg IV Q6H PRN PRN Reason: Nausea And Vomiting Sodium Chloride (Sodium Chloride Flush Syringe 10 Ml) 10 ml IV BID NORA Sodium Chloride (Sodium Chloride Flush Syringe 10 Ml) 10 ml IV PRN PRN PRN Reason: LINE FLUSH Review of Systems ROS unobtainable: due to mental status Exam - Physical Exam Narrative exam: Physical exam General appearance: Present: No apparent distress, awake, contracted, chronically ill apparent adult male - EENT Eyes: Present: PERRL ENT: hearing intact, poorl dentition - Neck Neck: Present: supple, normal ROM - Respiratory Respiratory effort: Non-labored Respiratory:diminished bases - Cardiovascular Heart rate: 107(bpm) Rhythm: ST, LBBB Heart Sounds: Present: S1 & S2. Absent: rub, click - Extremities Extremities: no ischemia, pulses intact, abnormal (contracture in extremities x4) - Peripheral Assessment Peripheral Pulses: within normal limits - Abdominal General gastrointestinal: soft, non-tender, normal bowel sounds, - Integumentary Integumentary: Present: warm, sacral pressure ulcer, left lower extremity pressure ulcers - Musculoskeletal Musculoskeletal: generalized weakness, contracture in extremities x4 -Neurological Neurological: awake, unable to fully assess - Psychiatric Psychiatric: unable to assess - Constitutional Vitals: Temp Pulse Resp BP Pulse Ox 100.5 F H 104 H 31 H 102/63 94 01/15/19 18:42 01/15/19 20:00 01/15/19 20:00 01/15/19 20:00 01/15/19 18:43 Results - Labs CBC & Chem 7: 01/15/19 18:27 01/15/19 18:27 Labs: Laboratory Last Values WBC 5.1 K/mm3 (4.5-11.0) 01/15/19 18:27 RBC 4.60 M/mm3 (3.65-5.03) 01/15/19 18:27 Hgb 13.6 gm/dl (11.8-15.2) 01/15/19 18:27 Hct 39.4 % (35.5-45.6) 01/15/19 18:27 MCV 86 fl (84-94) 01/15/19 18:27 MCH 30 pg (28-32) 01/15/19 18:27 MCHC 34 % (32-34) 01/15/19 18:27 RDW 15.4 % (13.2-15.2) H 01/15/19 18:27 Plt Count 225 K/mm3 (140-440) 01/15/19 18:27 PT 17.8 Sec. (12.2-14.9) H 01/15/19 19:16 INR 1.51 (0.87-1.13) H 01/15/19 19:16 Sodium 149 mmol/L (137-145) H 01/15/19 18:27 Potassium 6.7 mmol/L (3.6-5.0) H* D 01/15/19 18:27 Chloride 110.5 mmol/L (98-107) H 01/15/19 18:27 Carbon Dioxide 23 mmol/L (22-30) 01/15/19 18:27 22 mmol/L 01/15/19 18:27 BUN 111 mg/dL (9-20) H 01/15/19 18:27 3.6 mg/dL (0.8-1.5) H D 01/15/19 18:27 Estimated GFR 20 ml/min 01/15/19 18:27 31 % 01/15/19 18:27 Glucose 98 mg/dL (75-100) 01/15/19 18:27 Lactic Acid 2.40 mmol/L (0.7-2.0) H* 01/15/19 19:16 Calcium 8.8 mg/dL (8.4-10.2) 01/15/19 18:27 Magnesium 2.20 mg/dL (1.7-2.3) 01/15/19 18:27 160 units/L (55-170) 01/15/19 18:27 Yellow (Yellow) 01/15/19 18:50 Cloudy (Clear) 01/15/19 18:50 8.0 (5.0-7.0) H 01/15/19 18:50 Ur Specific [place] 1.015 (1.003-1.030) 01/15/19 18:50 100 mg/dl mg/dL (Negative) 01/15/19 18:50 Neg mg/dL (Negative) 01/15/19 18:50 Neg mg/dL (Negative) 01/15/19 18:50 Sm (Negative) 01/15/19 18:50 Neg (Negative) 01/15/19 18:50 Neg (Negative) 01/15/19 18:50 < 2.0 mg/dL (<2.0) 01/15/19 18:50 Ur Leukocyte Esterase Lg (Negative) 01/15/19 18:50 > 182.0 /HPF (0.0-6.0) H 01/15/19 18:50 14.0 /HPF (0.0-6.0) 01/15/19 18:50 1+ /HPF (Negative) 01/15/19 18:50 3+ /HPF 01/15/19 18:50 Few /HPF 01/15/19 18:50 - Imaging and Cardiology Chest x-ray: image reviewed (no acute pulmonary abnormalities) Assessment and Plan Assessment and plan: 68-year-old male who is a resident of [facility] with history of hypertension, CVA, BPH, CHF, contracture upper and lower extremities, sacral pressure ulcer, bilateral lower extremity pressure ulcer, CAD, DM, seizure, COPD, dementia who presents to [facility] ED for hyperkalemia. Sepsis -Likely secondary to urinary tract infection -Lactic Acid 2.40 -TMAX 100.5 -Tachycardiac with HR 107 -Blood Cultures pending -On IV abx -Gentle hydration with IVF -ID consulted -Continue to monitor UTI -Urine WBC >182 -Urine culture pending -Start on IV Abx MÓNICA -Cr on admission 3.6 with GFR 20 -Baseline around 1.0 -Avoid nephrotoxic agents -Renal dose all meds -Nephrology consulted Hyperkalemia -Potassium on admission 6.7 -Received hyperkalemic cocktail in ED -Repeat labs pending -Dr. Sanchez following Hx BPH -Chaudhary catheter -Continue Flomax Hx Seizure disorder -continue Keppra Hypertension -Continue to monitor BP -Continue Coreg Hx of Pressure Ulcers -Sacral and BLE -Wound care consult pending DM 2 -POC BG monitoring -SSI coverage COPD -Albuterol prn Hx Dementia Hx CHF Hx CVA DVT PPX -on Heparin Medication reconciliation pending Advance Directives: No VTE prophylaxis?: Chemical Plan of care discussed with patient/family: Yes <LUBNA LICEA - Last Filed: 01/16/19 03:58> History of Present Illness Date of admission: 01/15/19 19:51 Medications and Allergies Active Meds: Active Medications Acetaminophen (Tylenol) 650 mg PO Q4H PRN PRN Reason: Pain MILD(1-3)/Fever >100.5/PRICE Albuterol (Proventil) 2.5 mg IH Q4HRT PRN PRN Reason: Shortness Of Breath Carvedilol (Coreg) 6.25 mg PO BID [facility] Last Admin: 01/16/19 00:08 Dose: 6.25 mg Documented by: Dextrose (D50w (25gm) Syringe) 50 ml IV PRN PRN PRN Reason: Hypoglycemia Heparin Sodium (Porcine) (Heparin) 5,000 unit SUB-Q Q12HR [facility] Last Admin: 01/16/19 00:09 Dose: 5,000 unit Documented by: Dextrose/Sodium Chloride (D5/0.45ns) 1,000 mls @ 42 mls/hr IV DIRECT [facility] Last Admin: 01/15/19 23:59 Dose: 42 mls/hr Documented by: Ceftriaxone Sodium (Rocephin/Ns 1 Gm/50 Ml) 1 gm in 50 mls @ 100 mls/hr IV Q24HR NORA; Protocol Insulin Human Regular (Humulin R) 0 units SUB-Q Q4HR NORA; Protocol Last Admin: 01/16/19 00:37 Dose: Not Given Documented by: Levetiracetam (Keppra) 500 mg PO Q12HR [facility] Last Admin: 01/16/19 00:08 Dose: 500 mg Documented by: Ondansetron HCl (Zofran) 4 mg IV Q6H PRN PRN Reason: Nausea And Vomiting Sodium Chloride (Sodium Chloride Flush Syringe 10 Ml) 10 ml IV BID [facility] Last Admin: 01/16/19 00:03 Dose: 10 ml Documented by: Sodium Chloride (Sodium Chloride Flush Syringe 10 Ml) 10 ml IV PRN PRN PRN Reason: LINE FLUSH Tamsulosin HCl (Flomax) 0.4 mg PO QDAY [facility] Exam - Constitutional Vitals: Temp Pulse Resp BP Pulse Ox 98.9 F 107 H 20 119/68 88 01/15/19 23:48 01/16/19 00:08 01/15/19 23:48 01/16/19 00:08 01/15/19 23:48 Results - Labs CBC & Chem 7: 01/15/19 18:27 01/15/19 23:04 Labs: Laboratory Last Values WBC 5.1 K/mm3 (4.5-11.0) 01/15/19 18:27 RBC 4.60 M/mm3 (3.65-5.03) 01/15/19 18:27 Hgb 13.6 gm/dl (11.8-15.2) 01/15/19 18:27 Hct 39.4 % (35.5-45.6) 01/15/19 18:27 MCV 86 fl (84-94) 01/15/19 18:27 MCH 30 pg (28-32) 01/15/19 18:27 MCHC 34 % (32-34) 01/15/19 18:27 RDW 15.4 % (13.2-15.2) H 01/15/19 18:27 Plt Count 225 K/mm3 (140-440) 01/15/19 18:27 PT 17.8 Sec. (12.2-14.9) H 01/15/19 19:16 INR 1.51 (0.87-1.13) H 01/15/19 19:16 APTT 50.6 Sec. (24.2-36.6) H 01/15/19 19:16 Sodium 156 mmol/L (137-145) H 01/15/19 23:04 Potassium 5.5 mmol/L (3.6-5.0) H 01/15/19 23:04 Chloride 115.4 mmol/L (98-107) H 01/15/19 23:04 Carbon Dioxide 22 mmol/L (22-30) 01/15/19 23:04 24 mmol/L 01/15/19 23:04 BUN 107 mg/dL (9-20) H 01/15/19 23:04 3.7 mg/dL (0.8-1.5) H 01/15/19 23:04 Estimated GFR 9 ml/min 01/15/19 23:04 29 % 01/15/19 23:04 Glucose 97 mg/dL (75-100) 01/15/19 23:04 POC Glucose 103 (70-105) 01/16/19 00:42 Lactic Acid 2.40 mmol/L (0.7-2.0) H* 01/15/19 19:16 Calcium 9.0 mg/dL (8.4-10.2) 01/15/19 23:04 Magnesium 2.20 mg/dL (1.7-2.3) 01/15/19 18:27 160 units/L (55-170) 01/15/19 18:27 Yellow (Yellow) 01/15/19 18:50 Cloudy (Clear) 01/15/19 18:50 8.0 (5.0-7.0) H 01/15/19 18:50 Ur Specific [place] 1.015 (1.003-1.030) 01/15/19 18:50 100 mg/dl mg/dL (Negative) 01/15/19 18:50 Neg mg/dL (Negative) 01/15/19 18:50 Neg mg/dL (Negative) 01/15/19 18:50 Sm (Negative) 01/15/19 18:50 Neg (Negative) 01/15/19 18:50 Neg (Negative) 01/15/19 18:50 < 2.0 mg/dL (<2.0) 01/15/19 18:50 Ur Leukocyte Esterase Lg (Negative) 01/15/19 18:50 > 182.0 /HPF (0.0-6.0) H 01/15/19 18:50 14.0 /HPF (0.0-6.0) 01/15/19 18:50 1+ /HPF (Negative) 01/15/19 18:50 3+ /HPF 01/15/19 18:50 Few /HPF 01/15/19 18:50 Assessment and Plan Assessment and plan: 68 year old man , resident of [facility] with hypertension, CVA, BPH, Diastolic CHF, Contracture, Sacral Decubitus and lower extremities Ulcers, coronary artery disease, diabetes, Seizure Disorder, COPD, Dementia was sent to the emergency room for evaluation of hyperkalemia.. Feeling the ER, follow potassium, change fluid to D5W for hypernatremia. follow potassium level
[2019-01-15] MEDS ORDERED: D5/0.45NS 1,000 ML IV SCH (22:00)
--- NOTE | 2019-01-15 22:04 | XRay Report ---
CHEST 1 VIEW INDICATION / CLINICAL INFORMATION: fever weak. COMPARISON: 12/30/2018 FINDINGS: SUPPORT DEVICES: None. HEART / MEDIASTINUM: No significant abnormality. LUNGS / PLEURA: No significant pulmonary or pleural abnormality. No pneumothorax. ADDITIONAL FINDINGS: No significant additional findings. IMPRESSION: 1. No acute findings. Signer Name: Adalberto Lopez MD Signed: 01/15/2019 10:00 PM Workstation Name: [id number]
[2019-01-16] MEDS: SODIUM CHLORIDE FLUSH SYRINGE 10 ML IV SCH ×2 (00:03→11:01)
[2019-01-16] MEDS: COREG PO SCH ×3 (00:08→21:04)
[2019-01-16] MEDS: KEPPRA PO SCH ×3 (00:08→21:04)
[2019-01-16] MEDS: HEPARIN SUB-Q SCH ×3 (00:09→21:04)
[2019-01-16] MEDS: HumuLIN R SUB-Q SCH ×5 (00:37→10:43)
[2019-01-16] MEDS ORDERED: SODIUM BICARBONATE 150 MEQ in D5W 1,000 ML IV SCH (04:00)
[2019-01-16 06:37] LABS: Creatinine,Urine 49.5 mg/dL (0.1-20.0)
[2019-01-16 06:47] LABS: Protein/Creatinine Ratio,Urine 3.66
--- NOTE | 2019-01-16 08:22 | Progress Note ---
Assessment and Plan Assessment and plan: Patient is a 68-year-old man who is a resident of [facility] with a plethora of severe co-morbidities including hypertension, CVA with residuals, contracture upper and lower extremities, sacral pressure ulcer/osteomyelitis, bilateral lower extremity pressure ulcer, CAD, DM, seizure, COPD, dementia UTI, MDR PSA related to sacral wound, dementia with contractures/quadriplegia, hypertension, combined CHF with EF 30-35%, seizure disorder, BPH with suspected functional bladder outlet obstruction with chronic indwelling bright (Bright changed 03/07/18), recurrent UTIs, ARF, functional quadriplegia due to the dementia, prostate abscesses with lytic lesion and MRSA bacteremia s/p IV vancomycin who presents to [facility] ED for hyperkalemia found on labs from [place]. * pCXR no acute findings, Acute respiratory failure -ABG stat -consult pulmonology -d/c iv fluids, considering iv lasix but sbp is only 98 Sepsis -Likely secondary to urinary tract infection -Blood Cultures pending -On IV abx -Gentle hydration with IVF -ID consulted -Continue to monitor UTI -Urine WBC >182 -Urine culture pending -Start on IV Abx Hypotension -IVF but carefully with CHF history MÓNICA, vasomotor nephropathy, ATN -Cr on admission 3.6 with GFR 20 -Baseline around 1.0 -Avoid nephrotoxic agents -Renal dose all meds -Nephrology consulted Hyperkalemia -Potassium on admission 6.7 -Received hyperkalemic cocktail in ED -Repeat labs pending -Dr. Sanchez following Hx BPH -Bright catheter -Continue Flomax Hx Seizure disorder -continue Keppra Hypertension -Continue to monitor BP -Continue Coreg Hx of Pressure Ulcers -Sacral and BLE -Wound care consult pending DM 2 -POC BG monitoring -SSI coverage COPD -Albuterol prn Hx Dementia Hx CHF, EF 30-35% Hx CVA DVT PPX -on Heparin full code stat ABGs I called d/w daughter Angela at [phone] updated given. Time to change chronic bright per daugther CCT 32 minutes History Interval history: Patient was seen and examined. Follow-up on current diagnosis hyperkalemia. No overnight events reported to me. Patient denies any chest pain, shortness breath, nausea/vomiting or severe headaches. Imaging, nursing note, chart, labs and old chart reviewed. Discussed with patient. Hospitalist Physical - Physical exam Narrative exam: Gen: severely disable, contractured legs in position, neck flexed downward, ill appearing, moderated increase in accessory muscles, nonverbal HEENT: NCAT, EOMI, PERRL, OP Clear Neck: supple, no adenopathy, no thyromegaly, no JVD CVS/Heart: Reg tachycardia normal S1S2, pulses present bilaterally Chest/Lungs: tachypneic, CTA B, Symmetrical chest expansion, good air entry bilaterally GI/Abdomen: soft, NTND, good bowel sounds, no guarding or rebound /Bladder: no suprapubic tenderness, no CVA or paraspinal tenderness Neuro: CN 2-12 grossly intact, no new focal deficits Msk/skin: multiple pressure ulcer, sacrum, legs, feet, even elbows, stage 3 at least, atrophic limb x 4 Psych: nonverbal - Constitutional Vitals: Temp Pulse Resp BP Pulse Ox 98.0 F 107 H 22 106/58 93 01/16/19 03:19 01/16/19 03:34 01/16/19 03:19 01/16/19 03:19 01/16/19 03:19 Results - Labs CBC & Chem 7: 01/15/19 18:27 01/15/19 23:04 Labs: Laboratory Last Values WBC 5.1 K/mm3 (4.5-11.0) 01/15/19 18:27 RBC 4.60 M/mm3 (3.65-5.03) 01/15/19 18:27 Hgb 13.6 gm/dl (11.8-15.2) 01/15/19 18:27 Hct 39.4 % (35.5-45.6) 01/15/19 18:27 MCV 86 fl (84-94) 01/15/19 18:27 MCH 30 pg (28-32) 01/15/19 18:27 MCHC 34 % (32-34) 01/15/19 18:27 RDW 15.4 % (13.2-15.2) H 01/15/19 18:27 Plt Count 225 K/mm3 (140-440) 01/15/19 18:27 PT 17.8 Sec. (12.2-14.9) H 01/15/19 19:16 INR 1.51 (0.87-1.13) H 01/15/19 19:16 APTT 50.6 Sec. (24.2-36.6) H 01/15/19 19:16 Sodium 156 mmol/L (137-145) H 01/15/19 23:04 Potassium 5.5 mmol/L (3.6-5.0) H 01/15/19 23:04 Chloride 115.4 mmol/L (98-107) H 01/15/19 23:04 Carbon Dioxide 22 mmol/L (22-30) 01/15/19 23:04 24 mmol/L 01/15/19 23:04 BUN 107 mg/dL (9-20) H 01/15/19 23:04 3.7 mg/dL (0.8-1.5) H 01/15/19 23:04 Estimated GFR 9 ml/min 01/15/19 23:04 29 % 01/15/19 23:04 Glucose 97 mg/dL (75-100) 01/15/19 23:04 POC Glucose 105 (70-105) 01/16/19 06:24 Lactic Acid 2.40 mmol/L (0.7-2.0) H* 01/15/19 19:16 7.3 mg/dL (3.5-7.6) 01/15/19 23:04 Calcium 9.0 mg/dL (8.4-10.2) 01/15/19 23:04 Magnesium 2.20 mg/dL (1.7-2.3) 01/15/19 18:27 160 units/L (55-170) 01/15/19 18:27 Yellow (Yellow) 01/15/19 18:50 Cloudy (Clear) 01/15/19 18:50 8.0 (5.0-7.0) H 01/15/19 18:50 Ur Specific [place] 1.015 (1.003-1.030) 01/15/19 18:50 100 mg/dl mg/dL (Negative) 01/15/19 18:50 Neg mg/dL (Negative) 01/15/19 18:50 Neg mg/dL (Negative) 01/15/19 18:50 Sm (Negative) 01/15/19 18:50 Neg (Negative) 01/15/19 18:50 Neg (Negative) 01/15/19 18:50 < 2.0 mg/dL (<2.0) 01/15/19 18:50 Ur Leukocyte Esterase Lg (Negative) 01/15/19 18:50 > 182.0 /HPF (0.0-6.0) H 01/15/19 18:50 14.0 /HPF (0.0-6.0) 01/15/19 18:50 1+ /HPF (Negative) 01/15/19 18:50 3+ /HPF 01/15/19 18:50 Few /HPF 01/15/19 18:50 49.5 mg/dL (0.1-20.0) H 01/16/19 Unknown Protein/Creatinin Ratio 3.66 01/16/19 Unknown 181 mg/dL (5-11.8) H 01/16/19 Unknown Active Medications - Current Medications Current Medications: Generic Name Dose Route Start Last Admin Trade Name Freq PRN Reason Stop Dose Admin Acetaminophen 650 mg 01/15/19 21:06 Tylenol PO Q4H PRN Pain MILD(1-3)/Fever >100.5/PRICE Albuterol 2.5 mg 01/15/19 21:28 Proventil IH Q4HRT PRN Shortness Of Breath Carvedilol 6.25 mg 01/15/19 22:00 01/16/19 00:08 Coreg PO 6.25 mg BID NORA Administration Dextrose 50 ml 01/15/19 19:31 D50w (25gm) Syringe IV PRN PRN Hypoglycemia Heparin Sodium (Porcine) 5,000 unit 01/15/19 22:00 01/16/19 00:09 Heparin SUB-Q 5,000 unit Q12HR NORA Administration Ceftriaxone Sodium 1 gm in 50 mls @ 100 mls/hr 01/16/19 10:00 Rocephin/Ns 1 Gm/50 Ml IV Q24HR NORA Protocol Sodium Bicarbonate 150 meq/ 1,150 mls @ 50 mls/hr 01/16/19 04:00 Dextrose IV DIRECT NORA Sodium Chloride 1,000 mls @ 200 mls/hr 01/16/19 09:00 Nacl 0.45% 1000 Ml IV DIRECT NORA Insulin Human Regular 0 units 01/15/19 22:00 01/16/19 02:56 Humulin R SUB-Q Not Given Q4HR NORA Protocol Levetiracetam 500 mg 01/15/19 22:00 01/16/19 00:08 Keppra PO 500 mg Q12HR NORA Administration Ondansetron HCl 4 mg 01/15/19 21:06 Zofran IV Q6H PRN Nausea And Vomiting Sodium Chloride 10 ml 01/15/19 22:00 01/16/19 00:03 Sodium Chloride Flush Syringe 10 Ml IV 10 ml BID NORA Administration Sodium Chloride 10 ml 01/15/19 21:06 Sodium Chloride Flush Syringe 10 Ml IV PRN PRN LINE FLUSH Tamsulosin HCl 0.4 mg 01/16/19 10:00 Flomax PO QDAY NORA
[2019-01-16] MEDS ORDERED: NACL 0.45% 1000 ML 1,000 ML IV SCH (09:00)
[2019-01-16] MEDS: TYLENOL PO PRN ×2 (09:27→18:05)
[2019-01-16] MEDS: FLOMAX PO SCH (09:30)
[2019-01-16 09:56] LABS: ABG Base Excess -2.1 mmol/L (-2.0-3.0); ABG HCO3 21.1 mmol/L (20.0-26.0); ABG Methemoglobin 0.5 % (0.0-1.5); ABG Oxygen Saturation 97.3 % (95.0-99.0); ABG PCO2 29.8 mm Hg; ABG PH 7.468 pH Units (7.350-7.450); ABG PO2 86.7 mm Hg (80.0-90.0)
[2019-01-16] MEDS ORDERED: ROCEPHIN/NS 1 GM/50 ML 1 GM/50 ML BAG IV SCH (10:00)
[2019-01-16 11:08] LABS: Hematocrit 24.4 % (35.5-45.6); Hemoglobin 7.7 gm/dl (11.8-15.2); Mean Corpuscular HGB Conc 31 % (32-34); Mean Corpuscular Volume 86 fl (84-94); Platelet Count 492 K/mm3 (140-440); Red Blood Count 2.84 M/mm3 (3.65-5.03)
--- NOTE | 2019-01-16 11:14 | Consultation ---
History of Present Illness - Reason for Consult Consult date: 01/16/19 - History of Present Illness 68 yo M PMHx HTN, CVA, CHF, BPH, contractures, sacral pressure ulcer, b/l LE pressure ulcer, CAD, DM2, COPD, dementia admitted to the hosptial for hyperkalemia. He is a very poor historian secondary to his dementia. He was initially given IVF and kayexcelate before being discharged. He was found to be febrile however, with a urinalysis with significant pyuria. Urine cultuers are pending. His history is largely taken from the medical record. He is a frequent readmission and was seen by me earlier this month for recurrent polymicrobial bacteremias, sacral wounds, and persistent fevers. He was discharged without antibiotics after receiving multiple prolonged courses. Febrile to 102.5 with a normal white count. He is currently receiving ceftriaxone. 01/15 BCx are NGTD. Urinalysis with significant pyuria. Imaging personally reviewed: CXR: no abnormality. Past History Past Medical History: CAD, COPD, diabetes, heart failure, hypertension, sei zures, stroke, other (BPH, contracture, dementia, sacral pressure ulcer, lower extremity pressure ulcers) Past Surgical History: Other (debridement of sacral wound, gastrostomy) Social history: other (resident of [facility]) Family history: no significant family history Medications and Allergies Allergies Allergy/AdvReac Type Severity Reaction Status Date / Time lisinopril Allergy Unknown Verified 10/01/18 15:17 tramadol Allergy Unknown Verified 07/29/18 18:39 Home Medications Medication Instructions Recorded Confirmed Last Taken Type Multivit-Min/Iron Fum/Folic AC 1 each PO DAILY 03/24/18 12/31/18 12/29/18 History [Hnkrb-Gpbknxh-Emvfsivk Tablet] Acetaminophen 650 mg NGTUBE Q6H PRN 07/30/18 12/31/18 12/29/18 History Ipratropium/Albuterol Sulfate 1 ampul IH BID 07/30/18 12/31/18 12/29/18 History [DUONEB *Not for PRN Use*] Tamsulosin [Flomax] 0.4 mg PO QDAY 07/30/18 12/31/18 12/29/18 History Vit C/Ascorbate Calcium,Sodium 500 mg NGTUBE BID 07/30/18 12/31/1812/29/19 History [Vitamin C 500 mg/15 ml Liquid] Zinc Sulfate 220 mg NGTUBE QDAY 07/30/18 12/31/18 12/29/18 History levETIRAcetam [Keppra INJ] 500 mg PO Q12H 07/30/18 12/31/18 12/29/18 History Phosphorus #1 [K-Phos Neutral] 250 mg PO QID #30 tablet 08/23/18 12/31/18 12/29/18 Rx AtorvaSTATin [Lipitor] 40 mg NGTUBE QHS #30 tablet 10/21/18 12/31/18 12/29/18 Rx Insulin Aspart [NovoLOG 100 0 unit SQ AC 11/01/18 12/31/18 12/29/18 History UNITS/ML VIAL] ALBUTEROL NEB's [Proventil 0.083% 2.5 mg IH Q3HRT PRN nebu 12/27/18 12/31/18 12/29/18 Rx NEBS] Carvedilol [Coreg] 6.25 mg PO BID tablet 12/27/18 12/31/18 12/29/18 Rx Cefuroxime Axetil [Ceftin] 500 mg PO Q12H #140 ml 01/02/19 Unknown Rx Active Meds: Active Medications Acetaminophen (Tylenol) 650 mg PO Q4H PRN PRN Reason: Pain MILD(1-3)/Fever >100.5/PRICE Last Admin: 01/16/19 09:27 Dose: 650 mg Documented by: Albuterol (Proventil) 2.5 mg IH Q4HRT PRN PRN Reason: Shortness Of Breath Carvedilol (Coreg) 6.25 mg PO BID NORA Last Admin: 01/16/19 00:08 Dose: 6.25 mg Documented by: Dextrose (D50w (25gm) Syringe) 50 ml IV PRN PRN PRN Reason: Hypoglycemia Heparin Sodium (Porcine) (Heparin) 5,000 unit SUB-Q Q12HR [facility] Last Admin: 01/16/19 09:57 Dose: 5,000 unit Documented by: Ceftriaxone Sodium (Rocephin/Ns 1 Gm/50 Ml) 1 gm in 50 mls @ 100 mls/hr IV Q24HR [facility]A; Protocol Last Admin: 01/16/19 09:48 Dose: 100 mls/hr Documented by: Sodium Chloride (Nacl 0.45% 1000 Ml) 1,000 mls @ 200 mls/hr IV DIRECT [facility] Insulin Human Regular (Humulin R) 0 units SUB-Q Q4HR [facility]; Protocol Last Admin: 01/16/19 10:43 Dose: Not Given Documented by: Levetiracetam (Keppra) 500 mg PO Q12HR [facility] Last Admin: 01/16/19 09:28 Dose: 500 mg Documented by: Ondansetron HCl (Zofran) 4 mg IV Q6H PRN PRN Reason: Nausea And Vomiting Sodium Chloride (Sodium Chloride Flush Syringe 10 Ml) 10 ml IV BID [facility] Last Admin: 01/16/19 00:03 Dose: 10 ml Documented by: Sodium Chloride (Sodium Chloride Flush Syringe 10 Ml) 10 ml IV PRN PRN PRN Reason: LINE FLUSH Tamsulosin HCl (Flomax) 0.4 mg PO QDAY [facility] Last Admin: 01/16/19 09:30 Dose: 0.4 mg Documented by: Review of Systems ROS unobtainable: due to mental status Physical Examination - Physical Exam Narrative exam: Physical Exam: Constitutional: Awake, non-verbal Head, Ears, Nose: Normocephalic, atraumatic. External ears, nose normal Eyes: Conjunctivae/corneas clear. No icterus. No ptosis. Neck: Supple, no meningeal signs Oral: dentition fair, no thrush Cardiovascular: S1, S2 normal. Respiratory: Good air entry, clear to auscultation bilaterally GI: Soft, non-tender; bowel sounds normal. No peritoneal signs. : Chaudhary in place Musculoskeletal: No pedal edema, no cyanosis. Skin: No rash or abscess Hem/Lymphatic: No palpable cervical or supraclavicular nodes. No lymphangitis Neurological: Non-verbal - Constitutional Vitals: Vital Signs Temp Pulse Resp BP Pulse Ox 102.5 F H 129 H 38 H 99/52 96 01/16/19 09:30 01/16/19 09:30 01/16/19 09:30 01/16/19 09:30 01/16/19 09:53 Temperature -Last 24 Hours Temperature 102.5 F Temperature 98.0 F Temperature 98.9 F Temperature 100.5 F Results - Labs CBC & Chem 7: 01/16/19 10:40 01/16/19 10:40 Labs: Abnormal lab results 01/15/19 01/15/19 01/15/19 Range/Units 18:27 18:27 18:50 RDW 15.4 H (13.2-15.2) % PT (12.2-14.9) Sec. INR (0.87-1.13) APTT (24.2-36.6) Sec. ABG pH (7.350-7.450) pH Units ABG Base Excess (-2.0-3.0) mmol/L ABG Hemoglobin (14.0-18.0) gm/dl Sodium 149 H (137-145) mmol/L Potassium 6.7 H* D (3.6-5.0) mmol/L Chloride 110.5 H (98-107) mmol/L BUN 111 H (9-20) mg/dL Creatinine 3.6 H D (0.8-1.5) mg/dL POC Glucose (70-105) Lactic Acid (0.7-2.0) mmol/L Urine pH 8.0 H (5.0-7.0) Urine WBC (Auto) > 182.0 H (0.0-6.0) /HPF Urine Creatinine (0.1-20.0) mg/dL Urine Total Protein (5-11.8) mg/dL 01/15/19 01/15/19 01/15/19 Range/Units 19:16 19:16 19:16 RDW (13.2-15.2) % PT 17.8 H (12.2-14.9) Sec. INR 1.51 H (0.87-1.13) APTT 50.6 H (24.2-36.6) Sec. ABG pH (7.350-7.450) pH Units ABG Base Excess (-2.0-3.0) mmol/L ABG Hemoglobin (14.0-18.0) gm/dl Sodium (137-145) mmol/L Potassium (3.6-5.0) mmol/L Chloride (98-107) mmol/L BUN (9-20) mg/dL Creatinine (0.8-1.5) mg/dL POC Glucose (70-105) Lactic Acid 2.40 H* (0.7-2.0) mmol/L Urine pH (5.0-7.0) Urine WBC (Auto) (0.0-6.0) /HPF Urine Creatinine (0.1-20.0) mg/dL Urine Total Protein (5-11.8) mg/dL 01/15/19 01/16/19 01/16/19 Range/Units 23:04 09:23 09:50 RDW (13.2-15.2) % PT (12.2-14.9) Sec. INR (0.87-1.13) APTT (24.2-36.6) Sec. ABG pH 7.468 H (7.350-7.450) pH Units ABG Base Excess -2.1 L (-2.0-3.0) mmol/L ABG Hemoglobin 8.3 L (14.0-18.0) gm/dl Sodium 156 H (137-145) mmol/L Potassium 5.5 H (3.6-5.0) mmol/L Chloride 115.4 H (98-107) mmol/L BUN 107 H (9-20) mg/dL Creatinine 3.7 H (0.8-1.5) mg/dL POC Glucose 113 H (70-105) Lactic Acid (0.7-2.0) mmol/L Urine pH (5.0-7.0) Urine WBC (Auto) (0.0-6.0) /HPF Urine Creatinine (0.1-20.0) mg/dL Urine Total Protein (5-11.8) mg/dL 01/16/19 Range/Units Unknown RDW (13.2-15.2) % PT (12.2-14.9) Sec. INR (0.87-1.13) APTT (24.2-36.6) Sec. ABG pH (7.350-7.450) pH Units ABG Base Excess (-2.0-3.0) mmol/L ABG Hemoglobin (14.0-18.0) gm/dl Sodium (137-145) mmol/L Potassium (3.6-5.0) mmol/L Chloride (98-107) mmol/L BUN (9-20) mg/dL Creatinine (0.8-1.5) mg/dL POC Glucose (70-105) Lactic Acid (0.7-2.0) mmol/L Urine pH (5.0-7.0) Urine WBC (Auto) (0.0-6.0) /HPF Urine Creatinine 49.5 H (0.1-20.0) mg/dL Urine Total Protein 181 H (5-11.8) mg/dL Assessment and Plan Cultures: 01/15 BCx - pending Urine Cx - pending A/P: 68 yo M PMHx HTN, CVA, CHF, BPH, contractures, sacral pressure ulcer, b/l LE pressure ulcer, CAD, DM2, COPD, dementia admitted with UTI 1. Sepsis secondary to UTI - present on admission with tachycardia and fever. Urinalysis with significant pyuria, pending urine culture. Surprisingly, his most recent positive urine culture was in May with Pseudomonas despite recurrently positive blood cultures. In light of this, will change ceftriaxone to cefepime pending urine and blood cultures. Would not be surprised if blood cultures are again positive. 2. Chronic sacral pressure ulcer - seen in room when wound care was dressing. No obvious purulence or change. Wouldn't recommend treating at this point unless symptoms change. Unless new purulent discharge is observed would avoid culturing in order to avoid complicating picture with colonizers. 3. chronic b/l LE pressure ulcers 4. HTN 5. CVA 6. CHF 7. CAD 8. DM2 9. COPD 10. Dementia Recs: - stop ceftriaxone - start cefepime 2g q24h - follow up urine and blood cultures Thank you for the consult, we will continue to follow. MD [facility] M: [phone] O: [phone] F: [phone]
[2019-01-16 11:20] LABS: Basophils # (Auto) 0.1 K/mm3 (0.0-0.1); Basophils % (Auto) 0.9 % (0.0-1.8); Eosinophils # (Auto) 0.2 K/mm3 (0.0-0.4); Eosinophils % (Auto) 1.7 % (0.0-4.3); Lymphocytes # (Auto) 1.1 K/mm3 (1.2-5.4); Lymphocytes % (Auto) 8.7 % (13.4-35.0); Monocytes # (Auto) 1.2 K/mm3 (0.0-0.8); Monocytes % (Auto) 9.9 % (0.0-7.3)
[2019-01-16 11:23] LABS: Calcium 9.1 mg/dL (8.4-10.2)
[2019-01-16] MEDS ORDERED: NACL 0.9% 500 ML 500 ML IV ONE (11:32)
--- NOTE | 2019-01-16 12:36 | Progress Note ---
Assessment and Plan cath removed not easily replaced gu cart ordered dictated Subjective Date of service: 01/16/19 Principal diagnosis: sepsis bladder outlet obst Objective - Constitutional Vitals: Vital Signs - 12hr 01/16/19 01/16/19 01/16/19 03:19 03:34 09:30 Temperature 98.0 F 102.5 F H Pulse Rate 107 H 107 H 129 H Respiratory 22 38 H Rate Blood Pressure 106/58 Blood Pressure 99/52 [Left] O2 Sat by Pulse 93 Oximetry 01/16/19 01/16/19 09:53 10:00 Temperature 101.4 F H Pulse Rate 110 H Respiratory Rate Blood Pressure Blood Pressure 82/45 [Left] O2 Sat by Pulse 96 Oximetry General appearance: Present: mild distress - Respiratory Respiratory effort: labored Extremities: abnormal - Gastrointestinal General gastrointestinal: Present: soft, non-tender - Labs CBC & Chem 7: 01/16/19 10:40 01/16/19 10:40 Labs: Abnormal lab results 01/15/19 01/15/19 01/15/19 Range/Units 18:27 18:27 18:50 WBC (4.5-11.0) K/mm3 RBC (3.65-5.03) M/mm3 Hgb (11.8-15.2) gm/dl Hct (35.5-45.6) % MCH (28-32) pg MCHC (32-34) % RDW 15.4 H (13.2-15.2) % Plt Count (140-440) K/mm3 Lymph % (Auto) (13.4-35.0) % Wilkin % (Auto) (0.0-7.3) % Lymph # (1.2-5.4) K/mm3 Wilkin # (0.0-0.8) K/mm3 Seg Neutrophils % (40.0-70.0) % Seg Neutrophils # (1.8-7.7) K/mm3 PT (12.2-14.9) Sec. INR (0.87-1.13) APTT (24.2-36.6) Sec. ABG pH (7.350-7.450) pH Units ABG Base Excess (-2.0-3.0) mmol/L ABG Hemoglobin (14.0-18.0) gm/dl Sodium 149 H (137-145) mmol/L Potassium 6.7 H* D (3.6-5.0) mmol/L Chloride 110.5 H (98-107) mmol/L Carbon Dioxide (22-30) mmol/L BUN 111 H (9-20) mg/dL Creatinine 3.6 H D (0.8-1.5) mg/dL POC Glucose (70-105) Lactic Acid (0.7-2.0) mmol/L Urine pH 8.0 H (5.0-7.0) Urine WBC (Auto) > 182.0 H (0.0-6.0) /HPF Urine Creatinine (0.1-20.0) mg/dL Urine Total Protein (5-11.8) mg/dL 01/15/19 01/15/19 01/15/19 Range/Units 19:16 19:16 19:16 WBC (4.5-11.0) K/mm3 RBC (3.65-5.03) M/mm3 Hgb (11.8-15.2) gm/dl Hct (35.5-45.6) % MCH (28-32) pg MCHC (32-34) % RDW (13.2-15.2) % Plt Count (140-440) K/mm3 Lymph % (Auto) (13.4-35.0) % Wilkin % (Auto) (0.0-7.3) % Lymph # (1.2-5.4) K/mm3 Wilkin # (0.0-0.8) K/mm3 Seg Neutrophils % (40.0-70.0) % Seg Neutrophils # (1.8-7.7) K/mm3 PT 17.8 H (12.2-14.9) Sec. INR 1.51 H (0.87-1.13) APTT 50.6 H (24.2-36.6) Sec. ABG pH (7.350-7.450) pH Units ABG Base Excess (-2.0-3.0) mmol/L ABG Hemoglobin (14.0-18.0) gm/dl Sodium (137-145) mmol/L Potassium (3.6-5.0) mmol/L Chloride (98-107) mmol/L Carbon Dioxide (22-30) mmol/L BUN (9-20) mg/dL Creatinine (0.8-1.5) mg/dL POC Glucose (70-105) Lactic Acid 2.40 H* (0.7-2.0) mmol/L Urine pH (5.0-7.0) Urine WBC (Auto) (0.0-6.0) /HPF Urine Creatinine (0.1-20.0) mg/dL Urine Total Protein (5-11.8) mg/dL 01/15/19 01/16/19 01/16/19 Range/Units 23:04 09:23 09:50 WBC (4.5-11.0) K/mm3 RBC (3.65-5.03) M/mm3 Hgb (11.8-15.2) gm/dl Hct (35.5-45.6) % MCH (28-32) pg MCHC (32-34) % RDW (13.2-15.2) % Plt Count (140-440) K/mm3 Lymph % (Auto) (13.4-35.0) % Wilkin % (Auto) (0.0-7.3) % Lymph # (1.2-5.4) K/mm3 Wilkin # (0.0-0.8) K/mm3 Seg Neutrophils % (40.0-70.0) % Seg Neutrophils # (1.8-7.7) K/mm3 PT (12.2-14.9) Sec. INR (0.87-1.13) APTT (24.2-36.6) Sec. ABG pH 7.468 H (7.350-7.450) pH Units ABG Base Excess -2.1 L (-2.0-3.0) mmol/L ABG Hemoglobin 8.3 L (14.0-18.0) gm/dl Sodium 156 H (137-145) mmol/L Potassium 5.5 H (3.6-5.0) mmol/L Chloride 115.4 H (98-107) mmol/L Carbon Dioxide (22-30) mmol/L BUN 107 H (9-20) mg/dL Creatinine 3.7 H (0.8-1.5) mg/dL POC Glucose 113 H (70-105) Lactic Acid (0.7-2.0) mmol/L Urine pH (5.0-7.0) Urine WBC (Auto) (0.0-6.0) /HPF Urine Creatinine (0.1-20.0) mg/dL Urine Total Protein (5-11.8) mg/dL 01/16/19 01/16/19 01/16/19 Range/Units 10:40 10:40 Unknown WBC 12.3 H (4.5-11.0) K/mm3 RBC 2.84 L (3.65-5.03) M/mm3 Hgb 7.7 L D (11.8-15.2) gm/dl Hct 24.4 L D (35.5-45.6) % MCH 27 L (28-32) pg MCHC 31 L (32-34) % RDW 18.0 H (13.2-15.2) % Plt Count 492 H D (140-440) K/mm3 Lymph % (Auto) 8.7 L (13.4-35.0) % Wilkin % (Auto) 9.9 H (0.0-7.3) % Lymph # 1.1 L (1.2-5.4) K/mm3 Wilkin # 1.2 H (0.0-0.8) K/mm3 Seg Neutrophils % 78.8 H (40.0-70.0) % Seg Neutrophils # 9.7 H (1.8-7.7) K/mm3 PT (12.2-14.9) Sec. INR (0.87-1.13) APTT (24.2-36.6) Sec. ABG pH (7.350-7.450) pH Units ABG Base Excess (-2.0-3.0) mmol/L ABG Hemoglobin (14.0-18.0) gm/dl Sodium 156 H (137-145) mmol/L Potassium 5.7 H (3.6-5.0) mmol/L Chloride 116.4 H (98-107) mmol/L Carbon Dioxide 20 L (22-30) mmol/L BUN 106 H (9-20) mg/dL Creatinine 3.7 H (0.8-1.5) mg/dL POC Glucose (70-105) Lactic Acid (0.7-2.0) mmol/L Urine pH (5.0-7.0) Urine WBC (Auto) (0.0-6.0) /HPF Urine Creatinine 49.5 H (0.1-20.0) mg/dL Urine Total Protein 181 H (5-11.8) mg/dL Medications & Allergies - Medications Allergies/Adverse Reactions: Allergies lisinopril Allergy (Verified 10/01/18 15:17) Unknown tramadol Allergy (Verified 07/29/18 18:39) Unknown Home Medications: Home Medications Medication Instructions Recorded Confirmed Last Taken Type Multivit-Min/Iron Fum/Folic AC 1 each PO DAILY 03/24/18 12/31/18 12/29/18 History [Uxsxk-Wcytido-Ddfiwrpj Tablet] Acetaminophen 650 mg NGTUBE Q6H PRN 07/30/18 12/31/18 12/29/18 History Ipratropium/Albuterol Sulfate 1 ampul IH BID 07/30/18 12/31/18 12/29/18 History [DUONEB *Not for PRN Use*] Tamsulosin [Flomax] 0.4 mg PO QDAY 07/30/18 12/31/18 12/29/18 History Vit C/Ascorbate Calcium,Sodium 500 mg NGTUBE BID 07/30/18 12/31/18 12/29/18 History [Vitamin C 500 mg/15 ml Liquid] Zinc Sulfate 220 mg NGTUBE QDAY 07/30/18 12/31/18 12/29/18 History levETIRAcetam [Keppra INJ] 500 mg PO Q12H 07/30/18 12/31/18 12/29/18 History Phosphorus #1 [K-Phos Neutral] 250 mg PO QID #30 tablet 08/23/18 12/31/18 12/29/18 Rx AtorvaSTATin [Lipitor] 40 mg NGTUBE QHS #30 tablet 10/21/18 12/31/18 12/29/18 Rx Insulin Aspart [NovoLOG 100 0 unit SQ AC 11/01/18 12/31/18 12/29/18 History UNITS/ML VIAL] ALBUTEROL NEB's [Proventil 0.083% 2.5 mg IH Q3HRT PRN nebu 12/27/18 12/31/18 12/29/18 Rx NEBS] Carvedilol [Coreg] 6.25 mg PO BID tablet 12/27/18 12/31/18 12/29/18 Rx Cefuroxime Axetil [Ceftin] 500 mg PO Q12H #140 ml 01/02/19 Unknown Rx Active Medications: Generic Name Dose Route Start Last Admin Trade Name Grey PRN Reason Stop Dose Admin Acetaminophen 650 mg 01/15/19 21:06 01/16/19 09:27 Tylenol PO 650 mg Q4H PRN Administration Pain MILD(1-3)/Fever >100.5/PRICE Albuterol 2.5 mg 01/15/19 21:28 Proventil IH Q4HRT PRN Shortness Of Breath Carvedilol 6.25 mg 01/15/19 22:00 01/16/19 00:08 Coreg PO 6.25 mg BID NORA Administration Dextrose 50 ml 01/15/19 19:31 D50w (25gm) Syringe IV PRN PRN Hypoglycemia Heparin Sodium (Porcine) 5,000 unit 01/15/19 22:00 01/16/19 09:57 Heparin SUB-Q 5,000 unit Q12HR [facility] Administration Ceftriaxone Sodium 1 gm in 50 mls @ 100 mls/hr 01/16/19 10:00 01/16/19 09:48 Rocephin/Ns 1 Gm/50 Ml IV 100 mls/hr Q24HR [facility] Administration Protocol Sodium Chloride 1,000 mls @ 200 mls/hr 01/16/19 09:00 Nacl 0.45% 1000 Ml IV DIRECT [facility]A Insulin Human Regular 0 units 01/15/19 22:00 01/16/19 10:43 Humulin R SUB-Q Not Given Q4HR [facility] Protocol Levetiracetam 500 mg 01/15/19 22:00 01/16/19 09:28 Keppra PO 500 mg Q12HR [facility] Administration Ondansetron HCl 4 mg 01/15/19 21:06 Zofran IV Q6H PRN Nausea And Vomiting Sodium Chloride 10 ml 01/15/19 22:00 01/16/19 00:03 Sodium Chloride Flush Syringe 10 Ml IV 10 ml BID NORA Administration Sodium Chloride 10 ml 01/15/19 21:06 Sodium Chloride Flush Syringe 10 Ml IV PRN PRN LINE FLUSH Tamsulosin HCl 0.4 mg 01/16/19 10:00 01/16/19 09:30 Flomax PO 0.4 mg QDAY [facility]A Administration
--- NOTE | 2019-01-16 13:13 | Consultation ---
History of Present Illness Consult date: 01/16/19 Requesting physician: BRENDA PEREZ Reason for consult: dyspnea History of present illness: 68 y/o male resident of [facility] whom I have been consulted on for shortness of breath. Patient is lying in bed, contracted and nonverbal. He does not appear to be in respiratory distress and is currently on 2 liters NC satting 96%. An ABG was ordered stat that showed of 87 on the same 2 liters. There was question of a need for intubation per the ICU charge. Of note on reviewing chart, HgB has dropped form 13 to 7 and patient is hypotensive but has an EF of 30-35%. Past History Past Medical History: CAD, COPD, diabetes, heart failure, hypertension, seizures, stroke, other (BPH, contracture, dementia, sacral pressure ulcer, lower extremity pressure ulcers) Past Surgical History: Other (debridement of sacral wound, gastrostomy) Social history: other (resident of [facility]) Family history: no significant family history Medications and Allergies Allergies Allergy/AdvReac Type Severity Reaction Status Date / Time lisinopril Allergy Unknown Verified 10/01/18 15:17 tramadol Allergy Unknown Verified 07/29/18 18:39 Home Medications Medication Instructions Recorded Confirmed Last Taken Type Multivit-Min/Iron Fum/Folic AC 1 each PO DAILY 03/24/18 12/31/18 12/29/18 History [Grvjh-Mmuoczq-Qurstbjr Tablet] Acetaminophen 650 mg NGTUBE Q6H PRN 07/30/18 12/31/18 12/29/18 History Ipratropium/Albuterol Sulfate 1 ampul IH BID 07/30/18 12/31/18 12/29/18 History [DUONEB *Not for PRN Use*] Tamsulosin [Flomax] 0.4 mg PO QDAY 07/30/18 12/31/18 12/29/18 History Vit C/Ascorbate Calcium,Sodium 500 mg NGTUBE BID 07/30/18 12/31/18 12/29/18 History [Vitamin C 500 mg/15 ml Liquid] Zinc Sulfate 220 mg NGTUBE QDAY 07/30/18 12/31/18 12/29/18 History levETIRAcetam [Keppra INJ] 500 mg PO Q12H 07/30/18 12/31/18 12/29/18 History Phosphorus #1 [K-Phos Neutral] 250 mg PO QID #30 tablet 08/23/18 12/31/18 12/29/18 Rx AtorvaSTATin [Lipitor] 40 mg NGTUBE QHS #30 tablet 10/21/18 12/31/18 12/29/18 Rx Insulin Aspart [NovoLOG 100 0 unit SQ AC 11/01/18 12/31/18 12/29/18 History UNITS/ML VIAL] ALBUTEROL NEB's [Proventil 0.083% 2.5 mg IH Q3HRT PRN nebu 12/27/18 12/31/18 12/29/18 Rx NEBS] Carvedilol [Coreg] 6.25 mg PO BID tablet 12/27/18 12/31/18 12/29/18 Rx Cefuroxime Axetil [Ceftin] 500 mg PO Q12H #140 ml 01/02/19 Unknown Rx Active Meds: Active Medications Acetaminophen (Tylenol) 650 mg PO Q4H PRN PRN Reason: Pain MILD(1-3)/Fever >100.5/PRICE Last Admin: 01/16/19 09:27 Dose: 650 mg Documented by: Albuterol (Proventil) 2.5 mg IH Q4HRT PRN PRN Reason: Shortness Of Breath Carvedilol (Coreg) 6.25 mg PO BID NORA Last Admin: 01/16/19 00:08 Dose: 6.25 mg Documented by: Dextrose (D50w (25gm) Syringe) 50 ml IV PRN PRN PRN Reason: Hypoglycemia Heparin Sodium (Porcine) (Heparin) 5,000 unit SUB-Q Q12HR [facility] Last Admin: 01/16/19 09:57 Dose: 5,000 unit Documented by: Sodium Chloride (Nacl 0.45% 1000 Ml) 1,000 mls @ 200 mls/hr IV DIRECT NORA Cefepime HCl (Maxipime/Ns 2 Gm/100 Ml) 2 gm in 100 mls @ 200 mls/hr IV Q24HR NORA; Protocol Insulin Human Regular (Humulin R) 0 units SUB-Q Q4HR [facility]A; Protocol Last Admin: 01/16/19 10:43 Dose: Not Given Documented by: Levetiracetam (Keppra) 500 mg PO Q12HR [facility] Last Admin: 01/16/19 09:28 Dose: 500 mg Documented by: Ondansetron HCl (Zofran) 4 mg IV Q6H PRN PRN Reason: Nausea And Vomiting Sodium Chloride (Sodium Chloride Flush Syringe 10 Ml) 10 ml IV BID [facility] Last Admin: 01/16/19 00:03 Dose: 10 ml Documented by: Sodium Chloride (Sodium Chloride Flush Syringe 10 Ml) 10 ml IV PRN PRN PRN Reason: LINE FLUSH Tamsulosin HCl (Flomax) 0.4 mg PO QDAY [facility] Last Admin: 01/16/19 09:30 Dose: 0.4 mg Documented by: Review of Systems ROS unobtainable: due to mental status Physical Examination Vital signs: Vital Signs Pulse Resp BP 77 25 H 112/58 01/15/19 14:41 01/15/19 14:41 01/15/19 14:41 General appearance: no acute distress, other (eyes open when you call his name) Eyes: non-icteric Ascultation: Bilateral: clear Percussion: Bilateral: not dull Extremities: other (contracted in upper and lower ext) Results - Laboratory Findings CBC and BMP: 01/16/19 10:40 01/16/19 10:40 ABG ABG pH 7.468 pH Units (7.350-7.450) H 01/16/19 09:50 ABG pCO2 29.8 mm Hg 01/16/19 09:50 ABG pO2 86.7 mm Hg (80.0-90.0) 01/16/19 09:50 ABG O2 Saturation 97.3 % (95.0-99.0) 01/16/19 09:50 PT/INR, D-dimer PT 17.8 Sec. (12.2-14.9) H 01/15/19 19:16 INR 1.51 (0.87-1.13) H 01/15/19 19:16 Abnormal lab findings: Abnormal Labs 01/15/19 01/15/19 01/15/19 18:27 18:27 18:50 WBC RBC Hgb Hct MCH MCHC RDW 15.4 H Plt Count Lymph % (Auto) Ware % (Auto) Lymph # Ware # Seg Neutrophils % Seg Neutrophils # PT INR APTT ABG pH ABG Base Excess ABG Hemoglobin Sodium 149 H Potassium 6.7 H* D Chloride 110.5 H Carbon Dioxide BUN 111 H Creatinine 3.6 H D POC Glucose Lactic Acid Urine pH 8.0 H Urine WBC (Auto) > 182.0 H Urine Creatinine Urine Total Protein 01/15/19 01/15/19 01/15/19 19:16 19:16 19:16 WBC RBC Hgb Hct MCH MCHC RDW Plt Count Lymph % (Auto) Ware % (Auto) Lymph # Ware # Seg Neutrophils % Seg Neutrophils # PT 17.8 H INR 1.51 H APTT 50.6 H ABG pH ABG Base Excess ABG Hemoglobin Sodium Potassium Chloride Carbon Dioxide BUN Creatinine POC Glucose Lactic Acid 2.40 H* Urine pH Urine WBC (Auto) Urine Creatinine Urine Total Protein 01/15/19 01/16/19 01/16/19 23:04 09:23 09:50 WBC RBC Hgb Hct MCH MCHC RDW Plt Count Lymph % (Auto) Ware % (Auto) Lymph # Ware # Seg Neutrophils % Seg Neutrophils # PT INR APTT ABG pH 7.468 H ABG Base Excess -2.1 L ABG Hemoglobin 8.3 L Sodium 156 H Potassium 5.5 H Chloride 115.4 H Carbon Dioxide BUN 107 H Creatinine 3.7 H POC Glucose 113 H Lactic Acid Urine pH Urine WBC (Auto) Urine Creatinine Urine Total Protein 01/16/19 01/16/19 01/16/19 10:40 10:40 Unknown WBC 12.3 H RBC 2.84 L Hgb 7.7 L D Hct 24.4 L D MCH 27 L MCHC 31 L RDW 18.0 H Plt Count 492 H D Lymph % (Auto) 8.7 L Ware % (Auto) 9.9 H Lymph # 1.1 L Ware # 1.2 H Seg Neutrophils % 78.8 H Seg Neutrophils # 9.7 H PT INR APTT ABG pH ABG Base Excess ABG Hemoglobin Sodium 156 H Potassium 5.7 H Chloride 116.4 H Carbon Dioxide 20 L BUN 106 H Creatinine 3.7 H POC Glucose Lactic Acid Urine pH Urine WBC (Auto) Urine Creatinine 49.5 H Urine Total Protein 181 H - Diagnostic Findings Chest x-ray: image reviewed (was done 01/15, none from this am.) Assessment and Plan 68 y/o male with multiple comorbidites with concern for respiratory distress. 1. On my exam, patient does not appear to be in respiratory distress and does not appear to require intubation at this time. I cannot find any other documentation of respiratory distress prior to my evaluation about 30-45 minutes ago. He appears stable on the 2 liters nasal cannula. Agree with gentle IVF's if needed but be mindful given decreased systolic function. Would also suggest CXR from today, but on my assessment, breathing appears stable. At this time will sign off. Please call if questions.
--- NOTE | 2019-01-16 14:12 | Ultrasound Report ---
ULTRASOUND RENAL INDICATION / CLINICAL INFORMATION: MÓNICA. COMPARISON: CT abdomen/pelvis from 07/29/2018 FINDINGS: RIGHT KIDNEY: Length = 13.4 cm. [normal > 9 cm] - Parenchymal Thickness = 2.0 cm. [normal > 1.5 cm] - Echogenicity: Increased diffusely - Hydronephrosis: None. - Cyst or mass: Simple cysts measuring up to 2.4 cm in the mid to lower pole. - Stones: None seen. LEFT KIDNEY: Length = 10.1 cm. [normal > 9 cm] - Parenchymal Thickness = 1.4 cm. [normal > 1.5 cm] - Echogenicity: Increased diffusely - Hydronephrosis: None. - Cyst or mass: 1.1 cm simple cyst in the midpole. - Stones: None seen. URINARY BLADDER: Partially collapsed but there appears to be some layering echogenic debris. FREE FLUID: None. ADDITIONAL FINDINGS: None. IMPRESSION: 1. Echogenic kidneys as outlined above, nonspecific but often seen with medical renal disease. 2. Simple bilateral renal cysts. 3. Partially collapsed bladder containing echogenic debris, the differential of which includes blood products in this patient who reportedly recently had a catheter removed. Signer Name: Suhas Joya MD Signed: 01/16/2019 2:08 PM Workstation Name: [id number]
--- NOTE | 2019-01-16 15:40 | Progress Note ---
Assessment and Plan - Patient Problems (1) Acute anemia Current Visit: No Status: Acute Plan to address problem: Acute worsening anemia Hemoglobin 7.7 Trend CBC Blood transfusion if indicated and hemoglobin worsens (2) Acute hypernatremia Current Visit: No Status: Acute Plan to address problem: Acute hypernatremia Received 3 L of saline in the emergency room with worsening hypernatremia Change to half-normal saline given its replace free water Trend CBC (3) Acute kidney injury Current Visit: No Status: Acute Plan to address problem: Acute kidney injury Received normal saline in the emergency room Did not receive maintenance fluids overnight 0.45% saline was ordered this morning However this has not been given He received a bolus of saline by the primary team We'll use half normal saline given hypernatremia and acute kidney injury I reviewed renal ultrasound without hydronephrosis (4) Metabolic acidosis Current Visit: Yes Status: Acute Plan to address problem: Metabolic Acidosis - Will monitor will add bicarb if acidosis worsens Subjective Principal diagnosis: sepsis bladder outlet obst Interval history: 68-year-old gentleman with medical history significant for hypertension, diabetes mellitus type 2, CVA, contractures admitted with hyperkalemia and worsening renal function I ordered fluid this morning and gave verbal orders to the nurses well however the fluid was not administered during the day she reports there was some concern for breathing AND fluids were held HOWEVER pulmonary SAW THE PT did not see any evidence of respiratory distress I evaluated the patient this afternoon does not appear in any respiratory distress Chaudhary catheter without any output Objective - Vital Signs Vital signs: Vital Signs - 12hr 01/16/19 01/16/19 01/16/19 09:30 09:53 10:00 Temperature 102.5 F H 101.4 F H Pulse Rate 129 H 110 H Respiratory 38 H Rate Blood Pressure 99/52 82/45 [Left] O2 Sat by Pulse 96 Oximetry - General Appearance General appearance: cachectic, chronically ill, frail EENT: ATNC, PERRL, mucous membranes moist Neck: no JVD Respiratory: Present: Clear to Ascultation Cardiology: regular, S1S2 Gastrointestinal: normal, normoactive bowel sounds Integumentary: no rash Neurologic: no focal deficit, confused, CN 3-12 intact Psychiatric: mood/affect appropriate - Lab 01/16/19 10:40 01/16/19 10:40 Most recent lab results ABG pH 7.468 pH Units (7.350-7.450) H 01/16/19 09:50 ABG pCO2 29.8 mm Hg 01/16/19 09:50 ABG pO2 86.7 mm Hg (80.0-90.0) 01/16/19 09:50 ABG HCO3 21.1 mmol/L (20.0-26.0) 01/16/19 09:50 ABG O2 Saturation 97.3 % (95.0-99.0) 01/16/19 09:50 Calcium 9.1 mg/dL (8.4-10.2) 01/16/19 10:40 Magnesium 2.20 mg/dL (1.7-2.3) 01/15/19 18:27 49.5 mg/dL (0.1-20.0) H 01/16/19 Unknown 181 mg/dL (5-11.8) H 01/16/19 Unknown - Imaging Chest x-ray: image reviewed (I reviewed chest x-ray with clear lung bases) Medications & Allergies - Medications Allergies/Adverse Reactions: Allergies lisinopril Allergy (Verified 10/01/18 15:17) Unknown tramadol Allergy (Verified 07/29/18 18:39) Unknown Home Medications: Home Medications Medication Instructions Recorded Confirmed Last Taken Type Multivit-Min/Iron Fum/Folic AC 1 each PO DAILY 03/24/18 12/31/18 12/29/18 History [Cphyb-Ivszbdy-Sidcbduw Tablet] Acetaminophen 650 mg NGTUBE Q6H PRN 07/30/18 12/31/18 12/29/18 History Ipratropium/Albuterol Sulfate 1 ampul IH BID 07/30/18 12/31/18 12/29/18 History [DUONEB *Not for PRN Use*] Tamsulosin [Flomax] 0.4 mg PO QDAY 07/30/18 12/31/18 12/29/18 History Vit C/Ascorbate Calcium,Sodium 500 mg NGTUBE BID 07/30/18 12/31/18 12/29/18 Hi story [Vitamin C 500 mg/15 ml Liquid] Zinc Sulfate 220 mg NGTUBE QDAY 07/30/18 12/31/18 12/29/18 History levETIRAcetam [Keppra INJ] 500 mg PO Q12H 03/05/0812/31/18 12/29/18 History Phosphorus #1 [K-Phos Neutral] 250 mg PO QID #30 tablet 08/23/18 12/31/18 12/29/18 Rx AtorvaSTATin [Lipitor] 40 mg NGTUBE QHS #30 tablet 10/21/18 12/31/18 12/29/18 Rx Insulin Aspart [NovoLOG 100 0 unit SQ AC 11/01/18 12/31/18 12/29/18 History UNITS/ML VIAL] ALBUTEROL NEB's [Proventil 0.083% 2.5 mg IH Q3HRT PRN nebu 12/27/18 12/31/18 12/29/18 Rx NEBS] Carvedilol [Coreg] 6.25 mg PO BID tablet 12/27/18 12/31/18 12/29/18 Rx Cefuroxime Axetil [Ceftin] 500 mg PO Q12H #140 ml 01/02/19 Unknown Rx Active Medications: Generic Name Dose Route Start Last Admin Trade Name Freq PRN Reason Stop Dose Admin Acetaminophen 650 mg 01/15/19 21:06 01/16/19 09:27 Tylenol PO 650 mg Q4H PRN Administration Pain MILD(1-3)/Fever >100.5/PRICE Albuterol 2.5 mg 01/15/19 21:28 Proventil IH Q4HRT PRN Shortness Of Breath Carvedilol 6.25 mg 01/15/19 22:00 01/16/19 00:08 Coreg PO 6.25 mg BID NORA Administration Dextrose 50 ml 01/15/19 19:31 D50w (25gm) Syringe IV PRN PRN Hypoglycemia Fludrocortisone Acetate 0.1 mg 01/16/19 16:00 Florinef PO QDAY NORA Heparin Sodium (Porcine) 5,000 unit 01/15/19 22:00 01/16/19 09:57 Heparin SUB-Q 5,000 unit Q12HR NORA Administration Sodium Chloride 1,000 mls @ 200 mls/hr 01/16/19 09:00 Nacl 0.45% 1000 Ml IV DIRECT NORA Cefepime HCl 2 gm in 100 mls @ 200 mls/hr 01/17/19 10:00 Maxipime/Ns 2 Gm/100 Ml IV Q24HR [facility] Protocol Insulin Human Regular 0 units 01/15/19 22:00 08/29/19 10:43 Humulin R SUB-Q Not Given Q4HR NORA Protocol Levetiracetam 500 mg 01/15/19 22:00 01/16/19 09:28 Keppra PO 500 mg Q12HR NORA Administration Ondansetron HCl 4 mg 01/15/19 21:06 Zofran IV Q6H PRN Nausea And Vomiting Sodium Chloride 10 ml 01/15/19 22:00 01/16/19 00:03 Sodium Chloride Flush Syringe 10 Ml IV 10 ml BID NORA Administration Sodium Chloride 10 ml 01/15/19 21:06 Sodium Chloride Flush Syringe 10 Ml IV PRN PRN LINE FLUSH Tamsulosin HCl 0.4 mg 01/16/19 10:00 01/16/19 09:30 Flomax PO 0.4 mg QDAY NORA Administration
[2019-01-16] MEDS: FLORINEF PO SCH (18:04)
[2019-01-16] MEDS ORDERED: KIONEX PO ONE (18:10)
[2019-01-17] MEDS: TYLENOL PO PRN (01:40)
--- NOTE | 2019-01-17 04:48 | Consultation ---
HISTORY OF PRESENT ILLNESS: The patient is a gentleman with an indwelling catheter who presented with evidence of urinary tract infection. Urological consultation was obtained. According to the hospitalist and the daughter, they wanted the catheter changed. He was supposed to have this changed tomorrow. The catheter is draining. He had no hydronephrosis when I was watching the patient support tech through the right side, she was going to complete it. At everybody's insistence, the catheter is being changed. Catheter was removed and it is difficult because of his contracture to replace. PAST MEDICAL HISTORY: Heart failure, COPD, diabetes, contractures. PAST SURGICAL HISTORY: Sacral wounds. ALLERGIES: LISINOPRIL, TRAMADOL. MEDICATIONS: Multiple medications including statins, Keppra, insulin. On examination, he is contracted. He has evidence of dementia. He is not oriented. He has some evidence of respiratory compromise. Abdomen is soft. On genitalia, he has atrophic testis with some penile edema. IMPRESSION: Bladder outlet obstruction. We will have to manipulate the catheter or take him to surgery because the catheter was removed. Urine has been clear. There is no active bleeding. We will have the ____ change the catheter. JOB# [id number] PIA/LUCI
--- NOTE | 2019-01-17 05:35 | Event Note ---
<MAN LIANG - Last Filed: 01/17/19 05:34> Date: 01/17/19 Pt had 16 beats of Vtach this morning. Stat EKG was done which showed SR with non specific T wave changes. Serial troponin ordered. Will consult cardiology. <VIV BROWN Mary Kate - Last Filed: 01/17/19 06:44> 68-year-old man with dementia and chronic sacral pressure ulcer. Patient administered a hospital for sepsis due to UTI Acute blood loss anemia, hemoglobin has dropped from 13.6-7.7-6.6 in a matter of 2 days, normocytic anemia, CT abdomen and pelvis to look for retroperitoneal bleeding. Consider GI consultation is more stable, 1 unit PRBC ordered -16 beats of V. tach noted, stat EKG, cardiology consults, a.m. electrolytes pending. Patient had hypernatremia previously
[2019-01-17] MEDS: HumuLIN R SUB-Q SCH ×6 (06:13→22:44)
[2019-01-17] MEDS: SODIUM CHLORIDE FLUSH SYRINGE 10 ML IV SCH ×3 (06:14→22:45)
[2019-01-17 06:24] LABS: Hematocrit 21.9 % (35.5-45.6); Hemoglobin 6.6 gm/dl (11.8-15.2); Mean Corpuscular HGB Conc 30 % (32-34); Mean Corpuscular Volume 88 fl (84-94); Platelet Count 447 K/mm3 (140-440); Red Blood Count 2.49 M/mm3 (3.65-5.03)
[2019-01-17] MEDS ORDERED: NACL 0.9% 500 ML 500 ML IV ONE ×3 (06:41→13:00)
[2019-01-17 06:47] LABS: Calcium 8.9 mg/dL (8.4-10.2)
[2019-01-17 07:06] LABS: Chol/HDL Ratio 2.73 %
[2019-01-17] MEDS ORDERED: D5W 1,000 ML IV SCH (09:00)
[2019-01-17] MEDS: MAXIPIME/NS 2 GM/100 ML 2 GM/100 ML BAG IV SCH (09:20)
[2019-01-17] MEDS: COREG PO SCH ×2 (10:49→22:45)
[2019-01-17] MEDS: FLOMAX PO SCH (10:50)
[2019-01-17] MEDS: HEPARIN SUB-Q SCH ×2 (10:50→22:43)
[2019-01-17] MEDS: FLORINEF PO SCH (10:52)
[2019-01-17] MEDS: KEPPRA PO SCH ×2 (10:52→22:43)
--- NOTE | 2019-01-17 11:03 | Progress Note ---
Assessment and Plan Cultures: 01/15 BCx - no growth Urine Cx - mixed >2 organisms A/P: 68 yo M PMHx HTN, CVA, CHF, BPH, contractures, sacral pressure ulcer, b/l LE pressure ulcer, CAD, DM2, COPD, dementia admitted with UTI 1. Sepsis secondary to UTI - Improved. fever curve trending down. tachycardia resolved. . Urinalysis with significant pyuria. Urine culture mixed . 2 organisms. Surprisingly, his most recent positive urine culture was in May with Pseudomonas despite recurrently positive blood cultures. In light of this, will change ceftriaxone to cefepime pending urine and blood cultures. Would not be surprised if blood cultures are again positive. 2. Chronic sacral pressure ulcer - seen in room when wound care was dressing. No obvious purulence or change. Wouldn't recommend treating at this point unless symptoms change. Unless new purulent discharge is observed would avoid culturing in order to avoid complicating picture with colonizers. 3. chronic b/l LE pressure ulcers 4. HTN 5. CVA 6. CHF 7. CAD 8. DM2 9. COPD 10. 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 Please call for questions. [facility] M: [phone] O:[phone] Subjective Date of service: 01/17/19 Principal diagnosis: sepsis bladder outlet obst Interval history: Patient seen and examined. Reports generalized weakness. Low grade fever. Objective - Exam Narrative Exam: Constitutional: Awake, No acute distress reported Head, Ears, Nose: Normocephalic, atraumatic. External ears, nose normal Eyes: Conjunctivae/corneas clear. No icterus. No ptosis. Neck: Supple, no meningeal signs Oral: dentition fair, no thrush Cardiovascular: S1, S2 normal. Respiratory: Good air entry, clear to auscultation bilaterally GI: Soft, non-tender; bowel sounds normal. No peritoneal signs. : Chaudhary in place Musculoskeletal: No pedal edema, no cyanosis. Skin: No rash or abscess Hem/Lymphatic: No palpable cervical or supraclavicular nodes. No lymphangitis Neurological: Awake. Not following commands. Mostly non-verbal - Constitutional Vitals: Vital Signs Temp Pulse Resp BP Pulse Ox 98.2 F 89 32 H 93/55 95 01/17/19 08:00 01/17/19 10:49 01/17/19 08:00 01/17/19 10:49 01/17/19 09:52 Temperature -Last 24 Hours Temperature 98.2 F Temperature 98.0 F Temperature 100.3 F Temperature 99.8 F Temperature 98.7 F - Labs CBC & Chem 7: 01/17/19 06:15 01/17/19 06:15 Labs: Abnormal lab results 01/15/19 01/16/19 01/16/19 Range/Units 18:27 10:40 10:40 WBC 12.3 H (4.5-11.0) K/mm3 RBC 2.84 L (3.65-5.03) M/mm3 Hgb 7.7 L D (11.8-15.2) gm/dl Hct 24.4 L D (35.5-45.6) % MCH 27 L (28-32) pg MCHC 31 L (32-34) % RDW 18.0 H (13.2-15.2) % Plt Count 492 H D (140-440) K/mm3 Lymph % (Auto) 8.7 L (13.4-35.0) % [place] % (Auto) 9.9 H (0.0-7.3) % Lymph # 1.1 L (1.2-5.4) K/mm3 [place] # 1.2 H (0.0-0.8) K/mm3 Seg Neutrophils % 78.8 H (40.0-70.0) % Seg Neutrophils # 9.7 H (1.8-7.7) K/mm3 Sodium 156 H (137-145) mmol/L Potassium 6.7 H* D 5.7 H (3.6-5.0) mmol/L Chloride 116.4 H (98-107) mmol/L Carbon Dioxide 20 L (22-30) mmol/L BUN 106 H (9-20) mg/dL Creatinine 3.7 H (0.8-1.5) mg/dL Glucose (75-100) mg/dL POC Glucose (70-105) Troponin T (0.00-0.029) ng/mL LDL Cholesterol Direct (50-130) mg/dL HDL Cholesterol (40-59) mg/dL Crossmatch 01/16/19 01/17/19 01/17/19 Range/Units 18:31 06:15 06:15 WBC 13.9 H (4.5-11.0) K/mm3 RBC 2.49 L (3.65-5.03) M/mm3 Hgb 6.6 L (11.8-15.2) gm/dl Hct 21.9 L (35.5-45.6) % MCH 27 L (28-32) pg MCHC 30 L (32-34) % RDW 18.0 H (13.2-15.2) % Plt Count 447 H (140-440) K/mm3 Lymph % (Auto) (13.4-35.0) % [place] % (Auto) (0.0-7.3) % Lymph # (1.2-5.4) K/mm3 [place] # (0.0-0.8) K/mm3 Seg Neutrophils % (40.0-70.0) % Seg Neutrophils # (1.8-7.7) K/mm3 Sodium 156 H (137-145) mmol/L Potassium (3.6-5.0) mmol/L Chloride 117.4 H (98-107) mmol/L Carbon Dioxide 19 L (22-30) mmol/L BUN 104 H (9-20) mg/dL Creatinine 4.1 H (0.8-1.5) mg/dL Glucose 72 L (75-100) mg/dL POC Glucose 110 H (70-105) Troponin T (0.00-0.029) ng/mL LDL Cholesterol Direct (50-130) mg/dL HDL Cholesterol (40-59) mg/dL Crossmatch 01/17/19 01/17/19 Range/Units 06:15 06:53 WBC (4.5-11.0) K/mm3 RBC (3.65-5.03) M/mm3 Hgb (11.8-15.2) gm/dl Hct (35.5-45.6) % MCH (28-32) pg MCHC (32-34) % RDW (13.2-15.2) % Plt Count (140-440) K/mm3 Lymph % (Auto) (13.4-35.0) % [place] % (Auto) (0.0-7.3) % Lymph # (1.2-5.4) K/mm3 [place] # (0.0-0.8) K/mm3 Seg Neutrophils % (40.0-70.0) % Seg Neutrophils # (1.8-7.7) K/mm3 Sodium (137-145) mmol/L Potassium (3.6-5.0) mmol/L Chloride (98-107) mmol/L Carbon Dioxide (22-30) mmol/L BUN (9-20) mg/dL Creatinine (0.8-1.5) mg/dL Glucose (75-100) mg/dL POC Glucose (70-105) Troponin T 0.645 H* (0.00-0.029) ng/mL LDL Cholesterol Direct 11 L (50-130) mg/dL HDL Cholesterol 19 L (40-59) mg/dL Crossmatch See Detail
--- NOTE | 2019-01-17 11:33 | Consultation ---
History of Present Illness Consult date: 01/17/19 Consult reason: other (NSVT) History of present illness: This is a cachectic-appearing, frail, 68-year-old man who lives in a [facility] with multiple co-morbidities who was admitted 01/15 with hyperkalemia. He has a cardiac history of nonischemic cardiomyopathy. In 2014, a cardiac cath documents no significant coronary artery disease but a decreased ejection fraction on routine follow up echocardiograms. Most recent echocardiogram 2 months ago reported the left ventricular ejection fraction 30-35%. Patient also has a history of paroxysmal atrial fibrillation, previously considered not a candidate for oral anticoagulation due to multiple co-morbidities and severe anemia. EKG is sinus tachycardia, no acute ischemic changes. Overnight, telemetry strips overnight shows evidence of NSVT. It's reported the patient remained asymptomati c. Labs today shows severe anemia with a hemoglobin of 6.6. Past History Social history: other (resident of [facility]) Family history: no significant family history Medications and Allergies Allergies Allergy/AdvReac Type Severity Reaction Status Date / Time lisinopril Allergy Unknown Verified 10/01/18 15:17 tramadol Allergy Unknown Verified 07/29/18 18:39 Home Medications Medication Instructions Recorded Confirmed Last Taken Type Multivit-Min/Iron Fum/Folic AC 1 each PO DAILY 03/24/18 12/31/18 12/29/18 History [Qrbem-Khdbgtl-Aupokcvg Tablet] Acetaminophen 650 mg NGTUBE Q6H PRN 07/30/18 12/31/18 12/29/18 History Ipratropium/Albuterol Sulfate 1 ampul IH BID 07/30/18 12/31/18 12/29/18 History [DUONEB *Not for PRN Use*] Tamsulosin [Flomax] 0.4 mg PO QDAY 07/30/18 12/31/18 12/29/18 History Vit C/Ascorbate Calcium,Sodium 500 mg NGTUBE BID 07/30/18 12/31/18 12/29/18 History [Vitamin C 500 mg/15 ml Liquid] Zinc Sulfate 220 mg NGTUBE QDAY 07/30/18 12/31/18 12/29/18 History levETIRAcetam [Keppra INJ] 500 mg PO Q12H 07/30/18 12/31/18 12/29/18 History Phosphorus #1 [K-Phos Neutral] 250 mg PO QID #30 tablet 08/23/18 12/31/18 12/29/18 Rx AtorvaSTATin [Lipitor] 40 mg NGTUBE QHS #30 tablet 10/21/18 12/31/18 12/29/18 Rx Insulin Aspart [NovoLOG 100 0 unit SQ AC 11/01/18 12/31/18 12/29/18 History UNITS/ML VIAL] ALBUTEROL NEB's [Proventil 0.083% 2.5 mg IH Q3HRT PRN nebu 12/27/18 12/31/18 12/29/18 Rx NEBS] Carvedilol [Coreg] 6.25 mg PO BID tablet 12/27/18 12/31/18 12/29/18 Rx Cefuroxime Axetil [Ceftin] 500 mg PO Q12H #140 ml 01/02/19 Unknown Rx Active Meds: Active Medications Acetaminophen (Tylenol) 650 mg PO Q4H PRN PRN Reason: Pain MILD(1-3)/Fever >100.5/PRICE Last Admin: 01/17/19 01:40 Dose: 650 mg Documented by: Albuterol (Proventil) 2.5 mg IH Q4HRT PRN PRN Reason: Shortness Of Breath Carvedilol (Coreg) 6.25 mg PO BID [facility] Last Admin: 01/17/19 10:49 Dose: Not Given Documented by: Dextrose (D50w (25gm) Syringe) 50 ml IV PRN PRN PRN Reason: Hypoglycemia Fludrocortisone Acetate (Florinef) 0.1 mg PO QDAY [facility] Last Admin: 01/17/19 10:52 Dose: 0.1 mg Documented by: Heparin Sodium (Porcine) (Heparin) 5,000 unit SUB-Q Q12HR NORA Last Admin: 01/17/19 10:50 Dose: Not Given Documented by: Cefepime HCl (Maxipime/Ns 2 Gm/100 Ml) 2 gm in 100 mls @ 200 mls/hr IV Q24HR [facility]; Protocol Last Admin: 01/17/19 09:20 Dose: 200 mls/hr Documented by: Dextrose (D5w) 1,000 mls @ 125 mls/hr IV DIRECT [facility] Last Admin: 01/17/19 09:56 Dose: 125 mls/hr Documented by: Insulin Human Regular (Humulin R) 0 units SUB-Q Q4HR [facility]; Protocol Last Admin: 01/17/19 10:49 Dose: Not Given Documented by: Levetiracetam (Keppra) 500 mg PO Q12HR [facility] Last Admin: 01/17/19 10:52 Dose: 500 mg Documented by: Ondansetron HCl (Zofran) 4 mg IV Q6H PRN PRN Reason: Nausea And Vomiting Sodium Chloride (Sodium Chloride Flush Syringe 10 Ml) 10 ml IV BID [facility] Last Admin: 01/17/19 10:53 Dose: 10 ml Documented by: Sodium Chloride (Sodium Chloride Flush Syringe 10 Ml) 10 ml IV PRN PRN PRN Reason: LINE FLUSH Tamsulosin HCl (Flomax) 0.4 mg PO QDAY [facility] Last Admin: 01/17/19 10:50 Dose: Not Given Documented by: Physical Examination Vital Signs Pulse Resp BP 77 25 H 112/58 01/15/19 14:41 01/15/19 14:41 01/15/19 14:41 General appearance: no acute distress, cachectic Cardiac: Positive: Reg Rate and Rhythm Results 01/17/19 06:15 01/17/19 06:15 Lipids 01/17/19 Range/Units 06:15 Triglycerides 122 (2-149) mg/dL Cholesterol 52 (50-199) mg/dL HDL Cholesterol 19 L (40-59) mg/dL Cholesterol/HDL Ratio 2.73 % CBC 01/17/19 Range/Units 06:15 WBC 13.9 H (4.5-11.0) K/mm3 RBC 2.49 L (3.65-5.03) M/mm3 Hgb 6.6 L (11.8-15.2) gm/dl Hct 21.9 L (35.5-45.6) % Plt Count 447 H (140-440) K/mm3 Comprehensive Metabolic Panel 01/15/19 01/17/19 Range/Units 18:27 06:15 Sodium 156 H (137-145) mmol/L Potassium 6.7 H* D 4.9 (3.6-5.0) mmol/L Chloride 117.4 H (98-107) mmol/L Carbon Dioxide 19 L (22-30) mmol/L BUN 104 H (9-20) mg/dL Creatinine 4.1 H (0.8-1.5) mg/dL Glucose 72 L (75-100) mg/dL Calcium 8.9 (8.4-10.2) mg/dL Assessment and Plan Sepsis Decubitus ulcer infections Recurrent UTI Severe Anemia Chronically elevated troponin Paroxysmal Afib previously considered not a candidate for oral anticoagulation LBBB, chronic Non-ischemic Cardiomyopathy EF 30-35% DIANA-i allergy NSVT on telemetry it's reported the patient remained asymptomatic. Recommendations: Beta blockers for suppression of paroxysmal NSVT. Otherwise conservative cardiac approach to management. We'll follow on an intermittent basis.
[2019-01-17] MEDS ORDERED: PANCREAZE DR 10,500 UNIT FEEDTUBE PRN (14:21)
[2019-01-17] MEDS ORDERED: SIMPLE SYRUP FEEDTUBE PRN ×2 (14:21)
[2019-01-17] MEDS ORDERED: SODIUM BICARBONATE FEEDTUBE PRN (14:21)
--- NOTE | 2019-01-17 16:23 | Progress Note ---
Assessment and Plan - Patient Problems (1) Acute anemia Current Visit: No Status: Acute Plan to address problem: Acute worsening anemia Hemoglobin 7.7 s/p Prbc transfusion Trend CBC Blood transfusion if indicated and hemoglobin worsens (2) Acute hypernatremia Current Visit: No Status: Acute Plan to address problem: Acute hypernatremia Received 3 L of saline in the emergency room with worsening hypernatremia Received alternating D5W and half normal saline Trend CBC (3) Acute kidney injury Current Visit: No Status: Acute Plan to address problem: Acute kidney injury Received normal saline in the emergency room Did not receive maintenance fluids overnight 0.45% saline was ordered on 01/16 and stopped by primary team due to concern for dyspnea however at my evaluation he appeared stable Discussed with primary team on 01/16 to ensure IVF unless patient decompensating given worsening renal function. Received a fluid bolus this morning We'll use half normal saline given hypernatremia and acute kidney injury I reviewed renal ultrasound without hydronephrosis (4) Metabolic acidosis Current Visit: Yes Status: Acute Plan to address problem: Metabolic Acidosis - 2/2 kerry Subjective Principal diagnosis: sepsis bladder outlet obst Interval history: 68-year-old gentleman with medical history significant for hypertension, diabetes mellitus type 2, CVA, contractures admitted with hyperkalemia and worsening renal function Patient seen today fluids again decreased last night due to poor venous access Call PICC nurse for better access Fluid hydration. remains confused. minimal output in bright. Objective - Vital Signs Vital signs: Vital Signs - 12hr 01/17/19 01/17/19 01/17/19 04:40 07:00 08:00 Temperature 98.0 F 98.2 F Pulse Rate 98 H 90 89 Respiratory 18 32 H Rate Blood Pressure 90/57 93/55 O2 Sat by Pulse 99 100 Oximetry 01/17/19 01/17/19 01/17/19 09:52 10:49 13:37 Temperature 98.2 F Pulse Rate 89 90 Respiratory 38 H Rate Blood Pressure 93/55 98/51 O2 Sat by Pulse 95 100 Oximetry 01/17/19 01/17/19 01/17/19 13:52 14:11 14:22 Temperature 97.8 F 98.2 F 98.0 F Pulse Rate 86 87 87 Respiratory 38 H 36 H 38 H Rate Blood Pressure 99/50 88/46 87/43 O2 Sat by Pulse 100 100 Oximetry 01/17/19 01/17/19 01/17/19 14:52 15:22 15:52 Temperature 98 F 98.2 F Pulse Rate 86 88 86 Respiratory 36 H 38 H 38 H Rate Blood Pressure 90/49 84/44 88/47 O2 Sat by Pulse 100 100 100 Oximetry - General Appearance General appearance: well-developed, well-nourished EENT: ATNC, PERRL Neck: no JVD, JVD Respiratory: Present: Clear to Ascultation Cardiology: regular, S1S2 Gastrointestinal: normal, normoactive bowel sounds Integumentary: no rash Neurologic: alert and oriented x3, CN 3-12 intact Psychiatric: mood/affect appropriate - Lab 01/17/19 06:15 01/17/19 06:15 Most recent lab results ABG pH 7.468 pH Units (7.350-7.450) H 01/16/19 09:50 ABG pCO2 29.8 mm Hg 01/16/19 09:50 ABG pO2 86.7 mm Hg (80.0-90.0) 01/16/19 09:50 ABG HCO3 21.1 mmol/L (20.0-26.0) 01/16/19 09:50 ABG O2 Saturation 97.3 % (95.0-99.0) 01/16/19 09:50 Calcium 8.9 mg/dL (8.4-10.2) 01/17/19 06:15 Magnesium 2.20 mg/dL (1.7-2.3) 01/15/19 18:27 49.5 mg/dL (0.1-20.0) H 01/16/19 Unknown 56 mmol/L 01/16/19 Unknown 181 mg/dL (5-11.8) H 01/16/19 Unknown - Imaging Chest x-ray: image reviewed (I reviewed CXr with clear lung bases. ) Medications & Allergies - Medications Allergies/Adverse Reactions: Allergies lisinopril Allergy (Verified 10/01/18 15:17) Unknown tramadol Allergy (Verified 07/29/18 18:39) Unknown Home Medications: Home Medications Medication Instructions Recorded Confirmed Last Taken Type Multivit-Min/Iron Fum/Folic AC 1 each PO DAILY 03/24/18 12/31/18 12/29/18 History [Sebax-Nxfqxon-Npjlcthx Tablet] Acetaminophen 650 mg NGTUBE Q6H PRN 07/30/18 12/31/18 12/29/18 History Ipratropium/Albuterol Sulfate 1 ampul IH BID 07/30/18 12/31/18 12/29/18 History [DUONEB *Not for PRN Use*] Tamsulosin [Flomax] 0.4 mg PO QDAY 07/30/18 12/31/18 12/29/18 History Vit C/Ascorbate Calcium,Sodium 500 mg NGTUBE BID 07/30/18 12/31/18 12/29/18 History [Vitamin C 500 mg/15 ml Liquid] Zinc Sulfate 220 mg NGTUBE QDAY 07/30/18 12/31/18 12/29/18 History levETIRAcetam [Keppra INJ] 500 mg PO Q12H 07/30/18 12/31/18 12/29/18 History Phosphorus #1 [K-Phos Neutral] 250 mg PO QID #30 tablet 08/23/18 12/31/18 12/29/18 Rx AtorvaSTATin [Lipitor] 40 mg NGTUBE QHS #30 tablet 10/21/18 12/31/18 12/29/18 Rx Insulin Aspart [NovoLOG 100 0 unit SQ AC 11/01/18 12/31/18 12/29/18 History UNITS/ML VIAL] ALBUTEROL NEB's [Proventil 0.083% 2.5 mg IH Q3HRT PRN nebu 12/27/18 12/31/18 12/29/18 Rx NEBS] Carvedilol [Coreg] 6.25 mg PO BID tablet 12/27/18 12/31/18 12/29/18 Rx Cefuroxime Axetil [Ceftin] 500 mg PO Q12H #140 ml 01/02/19 Unknown Rx Active Medications: Generic Name Dose Route Start Last Admin Trade Name Freq PRN Reason Stop Dose Admin Acetaminophen 650 mg 01/15/19 21:06 01/17/19 01:40 Tylenol PO 650 mg Q4H PRN Administration Pain MILD(1-3)/Fever >100.5/PRICE Albuterol 2.5 mg 01/15/19 21:28 Proventil IH Q4HRT PRN Shortness Of Breath Lipase/Protease/Amylase 1 each 08/30/19 14:21 Pancrenomi Moore 10,500 Unit FEEDTUBE PRN PRN For Clogged Feeding Tube Carvedilol 6.25 mg 01/15/19 22:00 01/17/19 10:49 Coreg PO Not Given BID NORA Dextrose 50 ml 01/15/19 19:31 D50w (25gm) Syringe IV PRN PRN Hypoglycemia Fludrocortisone Acetate 0.1 mg 01/16/19 16:00 01/17/19 10:52 Florinef PO 0.1 mg QDAY NORA Administration Heparin Sodium (Porcine) 5,000 unit 01/15/19 22:00 01/17/19 10:50 Heparin SUB-Q Not Given Q12HR NORA Cefepime HCl 2 gm in 100 mls @ 200 mls/hr 01/17/19 10:00 01/17/19 09:20 Maxipime/Ns 2 Gm/100 Ml IV 200 mls/hr Q24HR NORA Administration Protocol Dextrose 1,000 mls @ 125 mls/hr 01/17/19 09:00 01/17/19 09:56 D5w IV 125 mls/hr DIRECT NORA Administration Sodium Chloride 1,000 mls @ 150 mls/hr 01/17/19 17:00 Nacl 0.45% 1000 Ml IV DIRECT NORA Insulin Human Regular 0 units 01/15/19 22:00 01/17/19 10:49 Humulin R SUB-Q Not Given Q4HR [facility] Protocol Levetiracetam 500 mg 01/15/19 22:00 01/17/19 10:52 Keppra PO 500 mg Q12HR NORA Administration Ondansetron HCl 4 mg 01/15/19 21:06 Zofran IV Q6H PRN Nausea And Vomiting Simple Syrup 15 ml 01/17/19 14:21 Simple Syrup FEEDTUBE PRN PRN Hypoglycemia Simple Syrup 30 ml 01/17/19 14:21 Simple Syrup FEEDTUBE PRN PRN Hypoglycemia Sodium Bicarbonate 325 mg 01/17/19 14:21 Sodium Bicarbonate FEEDTUBE PRN PRN For Clogged Feeding Tube Sodium Chloride 10 ml 01/15/19 22:00 01/17/19 10:53 Sodium Chloride Flush Syringe 10 Ml IV 10 ml BID NORA Administration Sodium Chloride 10 ml 01/15/19 21:06 Sodium Chloride Flush Syringe 10 Ml IV PRN PRN LINE FLUSH Tamsulosin HCl 0.4 mg 01/16/19 10:00 01/17/19 10:50 Flomax PO Not Given QDAY NORA
[2019-01-17] MEDS: NACL 0.45% 1000 ML 1,000 ML IV SCH ×2 (16:43→22:44)
--- NOTE | 2019-01-17 16:53 | XRay Report ---
CHEST 1 VIEW INDICATION: kerry. COMPARISON: 2 days prior FINDINGS: Support devices: None. Heart: Stable. Lungs/Pleura: Mild increased interstitial markings may be due to pulmonary venous hypertension. Mild interstitial edema could have this appearance. IMPRESSION: 1. No significant change. Signer Name: Joselito Ho MD Signed: 01/17/2019 4:49 PM Workstation Name: [id number]
--- NOTE | 2019-01-17 18:48 | Progress Note ---
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 * pCXR no acute findings, Acute respiratory failure -ABG reviewed -consulted pulmonology -d/c iv fluids, considering iv lasix but sbp is low Sepsis -Likely secondary to urinary tract infection -Blood Cultures pending -On IV abx -Gentle hydration with IVF -ID consulted, input noted, change iv rocephin to cefepime -Continue to monitor UTI -Urine WBC >182 -Urine culture pending, -urine culture contaminated -Start on IV Abx -bright changed by Dr. aGbriel on 01/16/19 Hypotension -IVF but carefully with CHF history MÓNICA, vasomotor nephropathy, ATN -Cr on admission 3.6 with GFR 20 -Baseline around 1.0 -Avoid nephrotoxic agents -Renal dose all meds -Nephrology consulted Hyperkalemia -Potassium on admission 6.7 -Received hyperkalemic cocktail in ED -Repeat labs pending -Dr. Sanchez following Hx BPH -Bright catheter -disContinue Flomax due to hypotension Hx Seizure disorder -continue Keppra Hypertension, now hypotensive -Continue to monitor BP -disContinue Coreg Hx of Pressure Ulcers -Sacral and BLE -Wound care consult pending DM 2 -POC BG monitoring -SSI coverage COPD -Albuterol prn Hx Dementia Hx CHF, EF 30-35% Hx CVA DVT PPX -stop Heparin full code stat ABGs I called d/w daughter Angela at [phone] updated given. Time to change chronic bright per daugther transfuse blood today stop bp medications, coreg and also flomax due to the hypotension CCT 35 minutes History Interval history: Patient was seen and examined. Follow-up on current diagnosis hyperkalemia. No overnight events reported to me. Patient denies any chest pain, shortness breath, nausea/vomiting or severe headaches. Imaging, nursing note, chart, labs and old chart reviewed. Discussed with patient. Hospitalist Physical - Physical exam Narrative exam: Gen: severely disable, contractured legs in position, neck flexed downward, ill appearing, moderated increase in accessory muscles, nonverbal HEENT: NCAT, EOMI, PERRL, OP Clear Neck: supple, no adenopathy, no thyromegaly, no JVD CVS/Heart: Reg tachycardia normal S1S2, pulses present bilaterally Chest/Lungs: tachypneic, CTA B, Symmetrical chest expansion, good air entry bilaterally GI/Abdomen: soft, NTND, good bowel sounds, no guarding or rebound /Bladder: no suprapubic tenderness, no CVA or paraspinal tenderness Neuro: CN 2-12 grossly intact, no new focal deficits Msk/skin: multiple pressure ulcer, sacrum, legs, feet, even elbows, stage 3 at least, atrophic limb x 4 Psych: nonverbal - Constitutional Vitals: Temp Pulse Resp BP Pulse Ox 98.2 F 86 38 H 88/47 100 01/17/19 15:22 01/17/19 15:52 01/17/19 15:52 01/17/19 15:52 01/17/19 15:52 General appearance: Present: no acute distress, cachectic Results - Labs CBC & Chem 7: 01/17/19 06:15 01/17/19 06:15 Labs: Laboratory Last Values WBC 13.9 K/mm3 (4.5-11.0) H 01/17/19 06:15 RBC 2.49 M/mm3 (3.65-5.03) L 01/17/19 06:15 Hgb 6.6 gm/dl (11.8-15.2) L 01/17/19 06:15 Hct 21.9 % (35.5-45.6) L 01/17/19 06:15 MCV 88 fl (84-94) 01/17/19 06:15 MCH 27 pg (28-32) L 01/17/19 06:15 MCHC 30 % (32-34) L 01/17/19 06:15 RDW 18.0 % (13.2-15.2) H 01/17/19 06:15 Plt Count 447 K/mm3 (140-440) H 01/17/19 06:15 Lymph % (Auto) 8.7 % (13.4-35.0) L 01/16/19 10:40 [place] % (Auto) 9.9 % (0.0-7.3) H 01/16/19 10:40 Eos % (Auto) 1.7 % (0.0-4.3) 01/16/19 10:40 Baso % (Auto) 0.9 % (0.0-1.8) 01/16/19 10:40 Lymph # 1.1 K/mm3 (1.2-5.4) L 01/16/19 10:40 [place] # 1.2 K/mm3 (0.0-0.8) H 01/16/19 10:40 Eos # 0.2 K/mm3 (0.0-0.4) 01/16/19 10:40 Baso # 0.1 K/mm3 (0.0-0.1) 01/16/19 10:40 Add Manual Diff Complete 01/16/19 10:40 Total Counted Cancelled 01/16/19 10:40 Seg Neutrophils % 78.8 % (40.0-70.0) H 01/16/19 10:40 Seg Neuts % (Manual) Cancelled 01/16/19 10:40 Cancelled 01/16/19 10:40 Cancelled 01/16/19 10:40 Reactive Lymphs % (Man) Cancelled 01/16/19 10:40 Cancelled 01/16/19 10:40 Cancelled 01/16/19 10:40 Cancelled 01/16/19 10:40 Cancelled 01/16/19 10:40 Cancelled 01/16/19 10:40 Cancelled 01/16/19 10:40 Cancelled 01/16/19 10:40 Nucleated RBC % Cancelled 01/16/19 10:40 Seg Neutrophils # 9.7 K/mm3 (1.8-7.7) H 01/16/19 10:40 Seg Neutrophils # Man Cancelled 01/16/19 10:40 Band Neutrophils # Cancelled 01/16/19 10:40 Cancelled 01/16/19 10:40 Abs React Lymphs (Man) Cancelled 01/16/19 10:40 Cancelled 01/16/19 10:40 Cancelled 01/16/19 10:40 Cancelled 01/16/19 10:40 Cancelled 01/16/19 10:40 Cancelled 01/16/19 10:40 Cancelled 01/16/19 10:40 Blast Cells # Cancelled 01/16/19 10:40 WBC Morphology Cancelled 01/16/19 10:40 Hypersegmented Neuts Cancelled 01/16/19 10:40 Hyposegmented Neuts Cancelled 01/16/19 10:40 Hypogranular Neuts Cancelled 01/16/19 10:40 Cancelled 01/16/19 10:40 Cancelled 01/16/19 10:40 Cancelled 01/16/19 10:40 Cancelled 01/16/19 10:40 Cancelled 01/16/19 10:40 Cancelled 01/16/19 10:40 Cancelled 01/16/19 10:40 Cancelled 01/16/19 10:40 Cancelled 01/16/19 10:40 Plt Clumps, EDTA Cancelled 01/16/19 10:40 Cancelled 01/16/19 10:40 Cancelled 01/16/19 10:40 Cancelled 01/16/19 10:40 Plt Morphology Comment Cancelled 01/16/19 10:40 RBC Morphology Cancelled 01/16/19 10:40 Dimorphic RBCs Cancelled 01/16/19 10:40 Cancelled 01/16/19 10:40 Cancelled 01/16/19 10:40 Cancelled 01/16/19 10:40 Cancelled 01/16/19 10:40 Cancelled 01/16/19 10:40 Cancelled 01/16/19 10:40 Cancelled 01/16/19 10:40 Cancelled 01/16/19 10:40 Cancelled 01/16/19 10:40 Cancelled 01/16/19 10:40 Cancelled 01/16/19 10:40 Cancelled 01/16/19 10:40 Cancelled 01/16/19 10:40 Cancelled 01/16/19 10:40 Cancelled 01/16/19 10:40 Cancelled 01/16/19 10:40 Cancelled 01/16/19 10:40 Cancelled 01/16/19 10:40 Cancelled 01/16/19 10:40 Cancelled 01/16/19 10:40 Cancelled 01/16/19 10:40 Acanthocytes (Spur) Cancelled 01/16/19 10:40 Rouleaux Cancelled 01/16/19 10:40 Cancelled 01/16/19 10:40 Cancelled 01/16/19 10:40 Cancelled 01/16/19 10:40 Cancelled 01/16/19 10:40 Hem Pathologist Commnt Cancelled 01/16/19 10:40 PT 17.8 Sec. (12.2-14.9) H 01/15/19 19:16 INR 1.51 (0.87-1.13) H 01/15/19 19:16 APTT 50.6 Sec. (24.2-36.6) H 01/15/19 19:16 ABG pH 7.468 pH Units (7.350-7.450) H 01/16/19 09:50 ABG pCO2 29.8 mm Hg 01/16/19 09:50 ABG pO2 86.7 mm Hg (80.0-90.0) 01/16/19 09:50 ABG HCO3 21.1 mmol/L (20.0-26.0) 01/16/19 09:50 ABG O2 Saturation 97.3 % (95.0-99.0) 01/16/19 09:50 ABG O2 Content 11.2 (0.0-44) 01/16/19 09:50 ABG Base Excess -2.1 mmol/L (-2.0-3.0) L 01/16/19 09:50 ABG Hemoglobin 8.3 gm/dl (14.0-18.0) L 01/16/19 09:50 ABG Carboxyhemoglobin 1.9 % (0.0-5.0) 01/16/19 09:50 ABG Methemoglobin 0.5 % (0.0-1.5) 01/16/19 09:50 95.0 % (95.0-99.0) 01/16/19 09:50 28 % 01/16/19 09:50 Sodium 156 mmol/L (137-145) H 01/17/19 06:15 Potassium 4.9 mmol/L (3.6-5.0) 01/17/19 06:15 Chloride 117.4 mmol/L (98-107) H 01/17/19 06:15 Carbon Dioxide 19 mmol/L (22-30) L 01/17/19 06:15 25 mmol/L 01/17/19 06:15 BUN 104 mg/dL (9-20) H 01/17/19 06:15 4.1 mg/dL (0.8-1.5) H 01/17/19 06:15 Estimated GFR 18 ml/min 01/17/19 06:15 25 % 01/17/19 06:15 Glucose 72 mg/dL (75-100) L 01/17/19 06:15 POC Glucose 101 (70-105) 01/17/19 16:24 Lactic Acid 0.90 mmol/L (0.7-2.0) 01/17/19 09:27 7.3 mg/dL (3.5-7.6) 01/15/19 23:04 Calcium 8.9 mg/dL (8.4-10.2) 01/17/19 06:15 Magnesium 2.20 mg/dL (1.7-2.3) 01/15/19 18:27 160 units/L (55-170) 01/15/19 18:27 0.633 ng/mL (0.00-0.029) H* 01/17/19 11:26 Triglycerides 122 mg/dL (2-149) 01/17/19 06:15 Cholesterol 52 mg/dL (50-199) 01/17/19 06:15 11 mg/dL (50-130) L 01/17/19 06:15 19 mg/dL (40-59) L 01/17/19 06:15 2.73 % 01/17/19 06:15 Yellow (Yellow) 01/15/19 18:50 Cloudy (Clear) 01/15/19 18:50 8.0 (5.0-7.0) H 01/15/19 18:50 Ur Specific [place] 1.015 (1.003-1.030) 01/15/19 18:50 100 mg/dl mg/dL (Negative) 01/15/19 18:50 Neg mg/dL (Negative) 01/15/19 18:50 Neg mg/dL (Negative) 01/15/19 18:50 Sm (Negative) 01/15/19 18:50 Neg (Negative) 01/15/19 18:50 Neg (Negative) 01/15/19 18:50 < 2.0 mg/dL (<2.0) 01/15/19 18:50 Ur Leukocyte Esterase Lg (Negative) 01/15/19 18:50 > 182.0 /HPF (0.0-6.0) H 01/15/19 18:50 14.0 /HPF (0.0-6.0) 01/15/19 18:50 1+ /HPF (Negative) 01/15/19 18:50 3+ /HPF 01/15/19 18:50 Few /HPF 01/15/19 18:50 49.5 mg/dL (0.1-20.0) H 01/16/19 Unknown Protein/Creatinin Ratio 3.66 01/16/19 Unknown 56 mmol/L 01/16/19 Unknown 181 mg/dL (5-11.8) H 01/16/19 Unknown Blood Type O POSITIVE 01/17/19 06:53 Antibody Screen Negative 01/17/19 06:53 Crossmatch See Detail 01/17/19 06:53 Active Medications - Current Medications Current Medications: Generic Name Dose Route Start Last Admin Trade Name Freq PRN Reason Stop Dose Admin Acetaminophen 650 mg 01/15/19 21:06 01/17/19 01:40 Tylenol PO 650 mg Q4H PRN Administration Pain MILD(1-3)/Fever >100.5/PRICE Albuterol 2.5 mg 01/15/19 21:28 Proventil IH Q4HRT PRN Shortness Of Breath Lipase/Protease/Amylase 1 each 01/17/19 14:21 Pancrenomi Moore 10,500 Unit FEEDTUBE PRN PRN For Clogged Feeding Tube Carvedilol 6.25 mg 01/15/19 22:00 01/17/19 10:49 Coreg PO Not Given BID NORA Dextrose 50 ml 01/15/19 19:31 D50w (25gm) Syringe IV PRN PRN Hypoglycemia Fludrocortisone Acetate 0.1 mg 01/16/19 16:00 01/17/19 10:52 Florinef PO 0.1 mg QDAY NORA Administration Heparin Sodium (Porcine) 5,000 unit 01/15/19 22:00 01/17/19 10:50 Heparin SUB-Q Not Given Q12HR NORA Cefepime HCl 2 gm in 100 mls @ 200 mls/hr 01/17/19 10:00 01/17/19 09:20 Maxipime/Ns 2 Gm/100 Ml IV 200 mls/hr Q24HR NORA Administration Protocol Dextrose 1,000 mls @ 125 mls/hr 01/17/19 09:00 01/17/19 09:56 D5w IV 125 mls/hr DIRECT NORA Administration Sodium Chloride 1,000 mls @ 150 mls/hr 01/17/19 17:00 01/17/19 16:43 Nacl 0.45% 1000 Ml IV 150 mls/hr DIRECT NORA Administration Insulin Human Regular 0 units 01/15/19 22:00 01/17/19 10:49 Humulin R SUB-Q Not Given Q4HR [facility] Protocol Levetiracetam 500 mg 01/15/19 22:00 01/17/19 10:52 Keppra PO 500 mg Q12HR NORA Administration Ondansetron HCl 4 mg 01/15/19 21:06 Zofran IV Q6H PRN Nausea And Vomiting Simple Syrup 15 ml 01/17/19 14:21 Simple Syrup FEEDTUBE PRN PRN Hypoglycemia Simple Syrup 30 ml 01/17/19 14:21 Simple Syrup FEEDTUBE PRN PRN Hypoglycemia Sodium Bicarbonate 325 mg 01/17/19 14:21 Sodium Bicarbonate FEEDTUBE PRN PRN For Clogged Feeding Tube Sodium Chloride 10 ml 01/15/19 22:00 01/17/19 10:53 Sodium Chloride Flush Syringe 10 Ml IV 10 ml BID NORA Administration Sodium Chloride 10 ml 01/15/19 21:06 Sodium Chloride Flush Syringe 10 Ml IV PRN PRN LINE FLUSH Tamsulosin HCl 0.4 mg 01/16/19 10:00 01/17/19 10:50 Flomax PO Not Given QDAY NORA Nutrition/Malnutrition Assess - Dietary Evaluation Nutrition/Malnutrition Findings: Nutrition Notes Start: 01/16/19 14:38 Freq: Status: Active Protocol: Document 01/17/19 14:00 RM (Rec: 01/17/19 14:21 RM [id number]) Nutrition Notes Initial or Follow up Reassessment Current Diagnosis Acute Kidney Injury,COPD, Coronary Artery Disease, Diabetes,Sepsis,Hypertension, Heart Failure Other Pertinent Diagnosis Hx CVA, Sacral PU, UTI, Dementia, Hx seizure disorder, PEG Current Diet No diet ordered Labs/Tests Na 156 K 4.9 BUN 106 Creat 3.7 Pertinent Medications Reviewed Height 5 ft 7 in Weight 64.7 kg [place] Body Weight (kg) 67.27 BMI 22.3 Subjective/Other Information Verbally consulted for TF consult by MD. Burn Absent Trauma Absent #1 Nutrition Diagnosis Inadequate oral intake Diagnosis Progress(for reassessment Continues documentation) Is patient on ventilator? No Is Patient Ambulatory and/or Out of Bed No REE-([facility]-confined to bed) 1650.600 Calculation Used for Recommendations [facility] Additional Notes Protein Needs: 97-110g (1.5-1. 7g/kg) Fluid Needs: 1 ml/kcal Nutrition Intervention Nutrition Support: Nepro at 40 ml/hr. Water flush 250 mls q 4 hrs until hypernatremia resolves. Water flush of 150 mls q 4 hrs once hypernatremia resolves. Kcal 1,728 Protein (gm) 78 Fluid (mL) 698 Add Supplement/Snack (indicate name/kcal Mario BID /protein ) Provides kCal: 190 Provides Protein (gm) 5 Goal #1 TF tolerance Goal #2 Meet at least 75% of calorie and protein needs via TF Anticipated Discharge Needs: TF Follow-Up By: 01/12/19 Additional Comments Follow for new TF, renal labs
--- NOTE | 2019-01-17 23:50 | Event Note ---
Date: 01/17/19 Advised by nurse that pt was unable to get CT Abdomen done earlier today d/t his contracture.
[2019-01-18 00:40] LABS: Hematocrit 23.1 % (35.5-45.6); Hemoglobin 7.5 gm/dl (11.8-15.2); Mean Corpuscular HGB Conc 32 % (32-34); Mean Corpuscular Volume 85 fl (84-94); Platelet Count 405 K/mm3 (140-440); Red Blood Count 2.73 M/mm3 (3.65-5.03); Red Cell Distribution Width 17.6 % (13.2-15.2)
[2019-01-18 02:13] LABS: RBC Morphology Normal; Total Cells Counted 100
[2019-01-18 05:01] LABS: Hematocrit 22.4 % (35.5-45.6); Hemoglobin 7.3 gm/dl (11.8-15.2); Mean Corpuscular HGB Conc 33 % (32-34); Mean Corpuscular Volume 85 fl (84-94); Platelet Count 402 K/mm3 (140-440); Red Blood Count 2.65 M/mm3 (3.65-5.03); Red Cell Distribution Width 17.6 % (13.2-15.2)
[2019-01-18 05:26] LABS: Calcium 8.8 mg/dL (8.4-10.2)
[2019-01-18] MEDS: NACL 0.45% 1000 ML 1,000 ML IV SCH ×3 (05:53→22:46)
[2019-01-18] MEDS: FLOMAX PO SCH (11:17)
[2019-01-18] MEDS: HEPARIN SUB-Q SCH ×2 (11:17→22:43)
[2019-01-18] MEDS: KEPPRA PO SCH ×2 (11:18→22:42)
[2019-01-18] MEDS: FLORINEF PO SCH (11:18)
[2019-01-18] MEDS: MAXIPIME/NS 2 GM/100 ML 2 GM/100 ML BAG IV SCH (11:19)
[2019-01-18] MEDS: SODIUM CHLORIDE FLUSH SYRINGE 10 ML IV SCH ×2 (11:19→22:44)
[2019-01-18] MEDS: HumuLIN R SUB-Q SCH ×4 (11:20→23:01)
[2019-01-18] MEDS: COREG PO SCH ×2 (11:21→22:42)
--- NOTE | 2019-01-18 11:41 | Progress Note ---
Assessment and Plan - Patient Problems (1) Dilated cardiomyopathy Current Visit: Yes Status: Acute Plan to address problem: Patient is not a candidate for aggressive cardiac therapies, continued conservative management, will follow intermittently. Subjective Date of service: 01/18/19 Principal diagnosis: sepsis bladder outlet obst Interval history: Patient is frail, cachectic, chronically ill appearing, somnolent. No new cardiac complaints. Objective Vital Signs Temp Pulse Resp BP Pulse Ox 01/18/19 11:21 68 146/64 01/18/19 08:24 98.7 F 71 24 145/63 100 01/18/19 07:55 100 01/18/19 07:00 78 01/18/19 05:12 98.4 F 75 18 119/55 100 01/18/19 00:25 97.8 F 83 18 97/63 98 01/17/19 22:45 89 88/74 01/17/19 21:00 26 H 97 01/17/19 20:39 89 01/17/19 20:00 96 01/17/19 19:43 98.2 F 78 18 113/60 100 01/17/19 16:14 36 H 112/53 01/17/19 15:52 86 38 H 88/47 100 01/17/19 15:22 98.2 F 88 38 H 84/44 100 01/17/19 14:57 87 100 01/17/19 14:56 86 38 H 90/49 100 01/17/19 14:52 98 F 86 36 H 90/49 100 01/17/19 14:22 98.0 F 87 38 H 87/43 100 01/17/19 14:11 98.2 F 87 36 H 88/46 100 01/17/19 13:52 97.8 F 86 38 H 99/50 01/17/19 13:37 98.2 F 90 38 H 98/51 100 - Physical Examination General: No Apparent Distress, Cachectic HEENT: Positive: PERRL Neck: Positive: neck supple Cardiac: Positive: Reg Rate and Rhythm Lungs: Positive: Decreased Breath Sounds Neuro: Positive: Weakness Abdomen: Positive: Soft Skin: Positive: Clear Extremities: Absent: edema - Labs and Meds CBC 01/18/19 01/18/19 Range/Units 00:22 04:00 WBC 10.7 10.3 (4.5-11.0) K/mm3 RBC 2.73 L 2.65 L (3.65-5.03) M/mm3 Hgb 7.5 L 7.3 L (11.8-15.2) gm/dl Hct 23.1 L 22.4 L (35.5-45.6) % Plt Count 405 402 (140-440) K/mm3 Comprehensive Metabolic Panel 01/18/19 Range/Units 04:00 Sodium 151 H (137-145) mmol/L Potassium 4.3 (3.6-5.0) mmol/L Chloride 112.6 H (98-107) mmol/L Carbon Dioxide 20 L (22-30) mmol/L BUN 106 H (9-20) mg/dL Creatinine 4.1 H (0.8-1.5) mg/dL Glucose 85 (75-100) mg/dL Calcium 8.8 (8.4-10.2) mg/dL
--- NOTE | 2019-01-18 17:34 | Progress Note ---
Assessment and Plan - Patient Problems (1) [id number] renal failure Current Visit: Yes Status: Acute Plan to address problem: Has acute on chronic renal disease. We'll need to correct electrolytes sodium as well as potassium. Patient given Kayexalate will follow-up potassium. 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 Patient is on chronic isolation at the nursing facility. (3) ARF (acute renal failure) with tubular necrosis Current Visit: No Status: Acute Plan to address problem: With acute renal failure. Creatinine is 3.6. Patient also had hyponatremia renal following patient started on half normal saline. We'll up in a.m. (4) Anemia Current Visit: No Status: Acute Plan to address problem: Anemia most likely secondary to chronic disease. Patient H&H is 7.8 and 28. We 'll transfuse if hemoglobin and 7. (5) Dementia Current Visit: No Status: Acute (6) HTN (hypertension) Current Visit: No Status: Acute Qualifiers: Hypertension type: essential hypertension Qualified Code(s): I10 - Essential (primary) hypertension (7) Pressure ulcer of left hip, stage 4 Current Visit: No Status: Acute Plan to address problem: Patient will multiple wounds in different stages of healing heels and sacrum. History sacrum. Stage IV heel. History Interval history: patient,alert able to talk to you know new concerns. She cannot tolerate CT scan today secondary to severe contractures. Pain control today. Hospitalist Physical - Constitutional Vitals: Temp Pulse Resp BP Pulse Ox 98.5 F 88 26 H 122/72 100 01/18/19 12:58 01/18/19 15:00 01/18/19 12:58 01/18/19 12:58 01/18/19 12:58 General appearance: Present: no acute distress, cachectic - EENT Eyes: Present: PERRL, EOM intact ENT: hearing intact, clear oral mucosa, dentition normal - Neck Neck: Present: supple, normal ROM, rigidity, carotid bruits - Respiratory Respiratory: bilateral: diminished, rhonchi - Cardiovascular Rhythm: regular - Extremities Extremities: pulses intact, normal color, abnormal Extremity abnormal: edema, other (contractions multiple decubitus ulcers in different stages of healing. Local wound care.) - Abdominal General gastrointestinal: soft, non-tender, distended, hypoactive bowel sounds, other (2 feedings.) - Integumentary Integumentary: Absent: clear, warm, dry - Psychiatric Psychiatric: appropriate mood/affect, other (mood is stable patient has limited cognition secondary to chronic medical problems. Cannot move extremities. Contracted decubitus ulcers as mentioned before.) Results - Labs CBC & Chem 7: 01/19/19 Unknown 01/19/19 Unknown Labs: Laboratory Last Values WBC 10.3 K/mm3 (4.5-11.0) 01/18/19 04:00 RBC 2.65 M/mm3 (3.65-5.03) L 01/18/19 04:00 Hgb 7.3 gm/dl (11.8-15.2) L 01/18/19 04:00 Hct 22.4 % (35.5-45.6) L 01/18/19 04:00 MCV 85 fl (84-94) 01/18/19 04:00 MCH 27 pg (28-32) L 01/18/19 04:00 MCHC 33 % (32-34) 01/18/19 04:00 RDW 17.6 % (13.2-15.2) H 01/18/19 04:00 Plt Count 402 K/mm3 (140-440) 01/18/19 04:00 Lymph % (Auto) 8.7 % (13.4-35.0) L 01/16/19 10:40 [place] % (Auto) 9.9 % (0.0-7.3) H 01/16/19 10:40 Eos % (Auto) 1.7 % (0.0-4.3) 01/16/19 10:40 Baso % (Auto) 0.9 % (0.0-1.8) 01/16/19 10:40 Lymph # 1.1 K/mm3 (1.2-5.4) L 01/16/19 10:40 [place] # 1.2 K/mm3 (0.0-0.8) H 01/16/19 10:40 Eos # 0.2 K/mm3 (0.0-0.4) 01/16/19 10:40 Baso # 0.1 K/mm3 (0.0-0.1) 01/16/19 10:40 Add Manual Diff Complete 01/18/19 00:22 Total Counted 100 01/18/19 00:22 Seg Neutrophils % 78.8 % (40.0-70.0) H 01/16/19 10:40 Seg Neuts % (Manual) 76.0 % (40.0-70.0) H 01/18/19 00:22 0 % 01/18/19 00:22 12.0 % (13.4-35.0) L 01/18/19 00:22 Reactive Lymphs % (Man) 0 % 01/18/19 00:22 6.0 % (0.0-7.3) 01/18/19 00:22 5.0 % (0.0-4.3) H 01/18/19 00:22 1.0 % (0.0-1.8) 01/18/19 00:22 0 % 01/18/19 00:22 0 % 01/18/19 00:22 0 % 01/18/19 00:22 0 % 01/18/19 00:22 Nucleated RBC % Not Reportable 01/18/19 00:22 Seg Neutrophils # 9.7 K/mm3 (1.8-7.7) H 01/16/19 10:40 Seg Neutrophils # Man 8.1 K/mm3 (1.8-7.7) H 01/18/19 00:22 Band Neutrophils # 0.0 K/mm3 01/18/19 00:22 1.3 K/mm3 (1.2-5.4) 01/18/19 00:22 Abs React Lymphs (Man) 0.0 K/mm3 01/18/19 00:22 0.6 K/mm3 (0.0-0.8) 01/18/19 00:22 0.5 K/mm3 (0.0-0.4) H 01/18/19 00:22 0.1 K/mm3 (0.0-0.1) 01/18/19 00:22 0.0 K/mm3 01/18/19 00:22 0.0 K/mm3 01/18/19 00:22 0.0 K/mm3 01/18/19 00:22 Blast Cells # 0.0 K/mm3 01/18/19 00:22 WBC Morphology Not Reportable 01/18/19 00:22 Hypersegmented Neuts Not Reportable 01/18/19 00:22 Hyposegmented Neuts Not Reportable 01/18/19 00:22 Hypogranular Neuts Not Reportable 01/18/19 00:22 Cancelled 01/16/19 10:40 Not Reportable 01/18/19 00:22 Not Reportable 01/18/19 00:22 Not Reportable 01/18/19 00:22 Not Reportable 01/18/19 00:22 Not Reportable 01/18/19 00:22 Not Reportable 01/18/19 00:22 Not Reportable 01/18/19 00:22 Not Reportable 01/18/19 00:22 Plt Clumps, EDTA Not Reportable 01/18/19 00:22 Not Reportable 01/18/19 00:22 Not Reportable 01/18/19 00:22 Not Reportable 01/18/19 00:22 Plt Morphology Comment Not Reportable 01/18/19 00:22 RBC Morphology Normal 01/18/19 00:22 Dimorphic RBCs Not Reportable 01/18/19 00:22 Not Reportable 01/18/19 00:22 Not Reportable 01/18/19 00:22 Not Reportable 01/18/19 00:22 Cancelled 01/16/19 10:40 Not Reportable 01/18/19 00:22 Not Reportable 01/18/19 00:22 Not Reportable 01/18/19 00:22 Not Reportable 01/18/19 00:22 Not Reportable 01/18/19 00:22 Not Reportable 01/18/19 00:22 Not Reportable 01/18/19 00:22 Not Reportable 01/18/19 00:22 Not Reportable 01/18/19 00:22 Cancelled 01/16/19 10:40 Not Reportable 01/18/19 00:22 Not Reportable 01/18/19 00:22 Not Reportable 01/18/19 00:22 Not Reportable 01/18/19 00:22 Not Reportable 01/18/19 00:22 Not Reportable 01/18/19 00:22 Not Reportable 01/18/19 00:22 Acanthocytes (Spur) Not Reportable 01/18/19 00:22 Rouleaux Not Reportable 01/18/19 00:22 Not Reportable 01/18/19 00:22 Not Reportable 01/18/19 00:22 Not Reportable 01/18/19 00:22 Not Reportable 01/18/19 00:22 Hem Pathologist Commnt No 01/18/19 00:22 PT 17.8 Sec. (12.2-14.9) H 01/15/19 19:16 INR 1.51 (0.87-1.13) H 01/15/19 19:16 APTT 50.6 Sec. (24.2-36.6) H 01/15/19 19:16 ABG pH 7.468 pH Units (7.350-7.450) H 01/16/19 09:50 ABG pCO2 29.8 mm Hg 01/16/19 09:50 ABG pO2 86.7 mm Hg (80.0-90.0) 01/16/19 09:50 ABG HCO3 21.1 mmol/L (20.0-26.0) 01/16/19 09:50 ABG O2 Saturation 97.3 % (95.0-99.0) 01/16/19 09:50 ABG O2 Content 11.2 (0.0-44) 01/16/19 09:50 ABG Base Excess -2.1 mmol/L (-2.0-3.0) L 01/16/19 09:50 ABG Hemoglobin 8.3 gm/dl (14.0-18.0) L 01/16/19 09:50 ABG Carboxyhemoglobin 1.9 % (0.0-5.0) 01/16/19 09:50 ABG Methemoglobin 0.5 % (0.0-1.5) 01/16/19 09:50 95.0 % (95.0-99.0) 01/16/19 09:50 28 % 01/16/19 09:50 Sodium 151 mmol/L (137-145) H 01/18/19 04:00 Potassium 4.3 mmol/L (3.6-5.0) 01/18/19 04:00 Chloride 112.6 mmol/L (98-107) H 01/18/19 04:00 Carbon Dioxide 20 mmol/L (22-30) L 01/18/19 04:00 23 mmol/L 01/18/19 04:00 BUN 106 mg/dL (9-20) H 01/18/19 04:00 4.1 mg/dL (0.8-1.5) H 01/18/19 04:00 Estimated GFR 18 ml/min 01/18/19 04:00 26 % 01/18/19 04:00 Glucose 85 mg/dL (75-100) 01/18/19 04:00 POC Glucose 98 (70-105) 01/18/19 12:49 Lactic Acid 0.90 mmol/L (0.7-2.0) 01/17/19 09:27 7.3 mg/dL (3.5-7.6) 01/15/19 23:04 Calcium 8.8 mg/dL (8.4-10.2) 01/18/19 04:00 Magnesium 2.20 mg/dL (1.7-2.3) 01/15/19 18:27 160 units/L (55-170) 01/15/19 18:27 0.633 ng/mL (0.00-0.029) H* 01/17/19 11:26 Triglycerides 122 mg/dL (2-149) 01/17/19 06:15 Cholesterol 52 mg/dL (50-199) 01/17/19 06:15 11 mg/dL (50-130) L 01/17/19 06:15 19 mg/dL (40-59) L 01/17/19 06:15 2.73 % 01/17/19 06:15 Yellow (Yellow) 01/15/19 18:50 Cloudy (Clear) 01/15/19 18:50 8.0 (5.0-7.0) H 01/15/19 18:50 Ur Specific [place] 1.015 (1.003-1.030) 01/15/19 18:50 100 mg/dl mg/dL (Negative) 01/15/19 18:50 Neg mg/dL (Negative) 01/15/19 18:50 Neg mg/dL (Negative) 01/15/19 18:50 Sm (Negative) 01/15/19 18:50 Neg (Negative) 01/15/19 18:50 Neg (Negative) 01/15/19 18:50 < 2.0 mg/dL (<2.0) 01/15/19 18:50 Ur Leukocyte Esterase Lg (Negative) 01/15/19 18:50 > 182.0 /HPF (0.0-6.0) H 01/15/19 18:50 14.0 /HPF (0.0-6.0) 01/15/19 18:50 1+ /HPF (Negative) 01/15/19 18:50 3+ /HPF 01/15/19 18:50 Few /HPF 01/15/19 18:50 49.5 mg/dL (0.1-20.0) H 01/16/19 Unknown Protein/Creatinin Ratio 3.66 01/16/19 Unknown 56 mmol/L 01/16/19 Unknown 181 mg/dL (5-11.8) H 01/16/19 Unknown Blood Type O POSITIVE 01/17/19 06:53 Antibody Screen Negative 01/17/19 06:53 Crossmatch See Detail 01/17/19 06:53 Active Medications - Current Medications Current Medications: Generic Name Dose Route Start Last Admin Trade Name Freq PRN Reason Stop Dose Admin Acetaminophen 650 mg 01/15/19 21:06 01/17/19 01:40 Tylenol PO 650 mg Q4H PRN Administration Pain MILD(1-3)/Fever >100.5/PRICE Albuterol 2.5 mg 01/15/19 21:28 Proventil IH Q4HRT PRN Shortness Of Breath Lipase/Protease/Amylase 1 each 01/17/19 14:21 Pancreaze 10,500 Unit FEEDTUBE PRN PRN For Clogged Feeding Tube Carvedilol 6.25 mg 01/15/19 22:00 01/18/19 11:21 Coreg PO 6.25 mg BID NORA Administration Dextrose 50 ml 01/15/19 19:31 D50w (25gm) Syringe IV PRN PRN Hypoglycemia Fludrocortisone Acetate 0.1 mg 01/16/19 16:00 01/18/19 11:18 Florinef PO 0.1 mg QDAY NORA Administration Heparin Sodium (Porcine) 5,000 unit 01/15/19 22:00 01/18/19 11:17 Heparin SUB-Q 5,000 unit Q12HR NORA Administration Cefepime HCl 2 gm in 100 mls @ 200 mls/hr 01/17/19 10:00 01/18/19 11:19 Maxipime/Ns 2 Gm/100 Ml IV 200 mls/hr Q24HR NORA Administration Protocol Dextrose 1,000 mls @ 125 mls/hr 01/17/19 09:00 01/17/19 09:56 D5w IV 125 mls/hr DIRECT NORA Administration Sodium Chloride 1,000 mls @ 150 mls/hr 01/17/19 17:00 01/18/19 11:29 Nacl 0.45% 1000 Ml IV 150 mls/hr DIRECT NORA Administration Insulin Human Regular 0 units 01/15/19 22:00 01/18/19 14:00 Humulin R SUB-Q Not Given Q4HR NORA Protocol Levetiracetam 500 mg 01/15/19 22:00 01/18/19 11:18 Keppra PO 500 mg Q12HR NORA Administration Ondansetron HCl 4 mg 01/15/19 21:06 Zofran IV Q6H PRN Nausea And Vomiting Simple Syrup 15 ml 01/17/19 14:21 Simple Syrup FEEDTUBE PRN PRN Hypoglycemia Simple Syrup 30 ml 01/17/19 14:21 Simple Syrup FEEDTUBE PRN PRN Hypoglycemia Sodium Bicarbonate 325 mg 01/17/19 14:21 01/17/19 22:43 Sodium Bicarbonate FEEDTUBE 325 mg PRN PRN Administration For Clogged Feeding Tube Sodium Chloride 10 ml 01/15/19 22:00 01/18/19 11:19 Sodium Chloride Flush Syringe 10 Ml IV 10 ml BID NORA Administration Sodium Chloride 10 ml 01/15/19 21:06 Sodium Chloride Flush Syringe 10 Ml IV PRN PRN LINE FLUSH Tamsulosin HCl 0.4 mg 01/16/19 10:00 01/18/19 11:17 Flomax PO 0.4 mg QDAY NORA Administration Nutrition/Malnutrition Assess - Dietary Evaluation Nutrition/Malnutrition Findings: Nutrition Notes Start: 01/16/19 14:38 Freq: Status: Active Protocol: Document 01/17/19 14:00 RM (Rec: 01/17/19 14:21 RM [id number]) Nutrition Notes Initial or Follow up Reassessment Current Diagnosis Acute Kidney Injury,COPD, Coronary Artery Disease, Diabetes,Sepsis,Hypertension, Heart Failure Other Pertinent Diagnosis Hx CVA, Sacral PU, UTI, Dementia, Hx seizure disorder, PEG Current Diet No diet ordered Labs/Tests Na 156 K 4.9 BUN 106 Creat 3.7 Pertinent Medications Reviewed Height 5 ft 7 in Weight 64.7 kg [place] Body Weight (kg) 67.27 BMI 22.3 Subjective/Other Information Verbally consulted for TF consult by MD. Burn Absent Trauma Absent #1 Nutrition Diagnosis Inadequate oral intake Diagnosis Progress(for reassessment Continues documentation) Is patient on ventilator? No Is Patient Ambulatory and/or Out of Bed No REE-([facility]-confined to bed) 1650.600 Calculation Used for Recommendations [facility] Additional Notes Protein Needs: 97-110g (1.5-1. 7g/kg) Fluid Needs: 1 ml/kcal Nutrition Intervention Nutrition Support: Nepro at 40 ml/hr. Water flush 250 mls q 4 hrs until hypernatremia resolves. Water flush of 150 mls q 4 hrs once hypernatremia resolves. Kcal 1,728 Protein (gm) 78 Fluid (mL) 698 Add Supplement/Snack (indicate name/kcal Mario BID /protein ) Provides kCal: 190 Provides Protein (gm) 5 Goal #1 TF tolerance Goal #2 Meet at least 75% of calorie and protein needs via TF Anticipated Discharge Needs: TF Follow-Up By: 01/19/19 Additional Comments Follow for new TF, renal labs
--- NOTE | 2019-01-18 17:41 | Progress Note ---
Assessment and Plan - Patient Problems (1) Acute anemia Current Visit: No Status: Acute Plan to address problem: Acute worsening anemia Hemoglobin 7.7 s/p Prbc transfusion Trend CBC Blood transfusion if indicated and hemoglobin worsens (2) Acute hypernatremia Current Visit: No Status: Acute Plan to address problem: Acute hypernatremia Received 3 L of saline in the emergency room with worsening hypernatremia Received alternating D5W and half normal saline Continue half normal saline Trend CBC (3) Acute kidney injury Current Visit: No Status: Acute Plan to address problem: Acute kidney injury Received normal saline in the emergency room Did not receive maintenance fluids overnight 0.45% saline was ordered on 01/16 and stopped by primary team due to concern for dyspnea however at my evaluation he appeared stable Discussed with primary team on 01/16 to ensure IVF unless patient decompensating given worsening renal function. Received a fluid bolus this morning We'll use half normal saline given hypernatremia and acute kidney injury I reviewed renal ultrasound without hydronephrosis (4) Metabolic acidosis Current Visit: Yes Status: Acute Plan to address problem: Metabolic Acidosis - 2/2 kerry Continue to monitor Subjective Principal diagnosis: sepsis bladder outlet obst Interval history: 68-year-old gentleman with medical history significant for hypertension, diabetes mellitus type 2, CVA, contractures admitted with hyperkalemia and worsening renal function Patient seen today He is more awake today Renal function is still significantly diminished Review of systems Limited by patient's mental status minimal output in bright. Objective - Vital Signs Vital signs: Vital Signs - 12hr 01/18/19 01/18/19 01/18/19 07:00 07:55 08:24 Temperature 98.7 F Pulse Rate 78 71 Respiratory 24 Rate Respiratory Rate [ Generalized] Blood Pressure 145/63 O2 Sat by Pulse 100 100 Oximetry 01/18/19 01/18/19 01/18/19 09:00 11:00 11:21 Temperature Pulse Rate 68 Respiratory 22 Rate Respiratory 22 Rate [ Generalized] Blood Pressure 146/64 O2 Sat by Pulse 98 Oximetry 01/18/19 01/18/19 01/18/19 12:58 15:00 17:30 Temperature 98.5 F 98.4 F Pulse Rate 75 88 69 Respiratory 26 H 20 Rate Respiratory Rate [ Generalized] Blood Pressure 122/72 114/58 O2 Sat by Pulse 100 99 Oximetry - General Appearance General appearance: well-developed, well-nourished EENT: ATNC, PERRL Neck: no JVD Respiratory: Present: Clear to Ascultation Cardiology: regular, S1S2 Gastrointestinal: normal, normoactive bowel sounds Integumentary: no rash Neurologic: alert and oriented x3, CN 3-12 intact Psychiatric: mood/affect appropriate - Lab 01/18/19 04:00 01/18/19 04:00 Most recent lab results ABG pH 7.468 pH Units (7.350-7.450) H 01/16/19 09:50 ABG pCO2 29.8 mm Hg 01/16/19 09:50 ABG pO2 86.7 mm Hg (80.0-90.0) 01/16/19 09:50 ABG HCO3 21.1 mmol/L (20.0-26.0) 01/16/19 09:50 ABG O2 Saturation 97.3 % (95.0-99.0) 01/16/19 09:50 Calcium 8.8 mg/dL (8.4-10.2) 01/18/19 04:00 Magnesium 2.20 mg/dL (1.7-2.3) 01/15/19 18:27 49.5 mg/dL (0.1-20.0) H 01/16/19 Unknown 56 mmol/L 01/16/19 Unknown 181 mg/dL (5-11.8) H 01/16/19 Unknown - Imaging Chest x-ray: image reviewed (I reviewed chest x-ray without significant pleural effusion or edema) Medications & Allergies - Medications Allergies/Adverse Reactions: Allergies lisinopril Allergy (Verified 10/01/18 15:17) Unknown tramadol Allergy (Verified 07/29/18 18:39) Unknown Home Medications: Home Medications Medication Instructions Recorded Confirmed Last Taken Type Multivit-Min/Iron Fum/Folic AC 1 each PO DAILY 03/24/18 12/31/18 12/29/18 History [Lmdxo-Wccmiiq-Gerdbohe Tablet] Acetaminophen 650 mg NGTUBE Q6H PRN 07/30/18 12/31/18 12/29/18 History Ipratropium/Albuterol Sulfate 1 ampul IH BID 07/30/18 12/31/18 12/29/18 History [DUONEB *Not for PRN Use*] Tamsulosin [Flomax] 0.4 mg PO QDAY 07/30/18 12/31/18 12/29/18 History Vit C/Ascorbate Calcium,Sodium 500 mg NGTUBE BID 07/30/18 12/31/18 12/29/18 History [Vitamin C 500 mg/15 ml Liquid] Zinc Sulfate 220 mg NGTUBE QDAY 07/30/18 12/31/18 12/29/18 History levETIRAcetam [Keppra INJ] 500 mg PO Q12H 07/30/18 12/31/18 12/29/18 History Phosphorus #1 [K-Phos Neutral] 250 mg PO QID #30 tablet 08/23/18 12/31/18 12/29/18 Rx AtorvaSTATin [Lipitor] 40 mg NGTUBE QHS #30 tablet 10/21/18 12/31/18 12/29/18 Rx Insulin Aspart [NovoLOG 100 0 unit SQ AC 11/01/18 12/31/18 12/29/18 History UNITS/ML VIAL] ALBUTEROL NEB's [Proventil 0.083% 2.5 mg IH Q3HRT PRN nebu 12/27/18 12/31/18 12/29/18 Rx NEBS] Carvedilol [Coreg] 6.25 mg PO BID tablet 12/27/18 12/31/18 12/29/18 Rx Cefuroxime Axetil [Ceftin] 500 mg PO Q12H #140 ml 01/02/19 Unknown Rx Active Medications: Generic Name Dose Route Start Last Admin Trade Name Freq PRN Reason Stop Dose Admin Acetaminophen 650 mg 01/15/19 21:06 01/17/19 01:40 Tylenol PO 650 mg Q4H PRN Administration Pain MILD(1-3)/Fever >100.5/PRICE Albuterol 2.5 mg 01/15/19 21:28 Proventil IH Q4HRT PRN Shortness Of Breath Lipase/Protease/Amylase 1 each 01/17/19 14:21 Nickie Moore 10,500 Unit FEEDTUBE PRN PRN For Clogged Feeding Tube Carvedilol 6.25 mg 01/15/19 22:00 01/18/19 11:21 Coreg PO 6.25 mg BID NORA Administration Dextrose 50 ml 01/15/19 19:31 D50w (25gm) Syringe IV PRN PRN Hypoglycemia Fludrocortisone Acetate 0.1 mg 01/16/19 16:00 01/18/19 11:18 Florinef PO 0.1 mg QDAY NORA Administration Heparin Sodium (Porcine) 5,000 unit 01/15/19 22:00 01/18/19 11:17 Heparin SUB-Q 5,000 unit Q12HR NORA Administration Cefepime HCl 2 gm in 100 mls @ 200 mls/hr 01/17/19 10:00 01/18/19 11:19 Maxipime/Ns 2 Gm/100 Ml IV 200 mls/hr Q24HR NORA Administration Protocol Dextrose 1,000 mls @ 125 mls/hr 01/17/19 09:00 01/17/19 09:56 D5w IV 125 mls/hr DIRECT NORA Administration Sodium Chloride 1,000 mls @ 125 mls/hr 01/17/19 17:00 01/18/19 11:29 Nacl 0.45% 1000 Ml IV 150 mls/hr DIRECT NORA Administration Insulin Human Regular 0 units 01/15/19 22:00 01/18/19 14:00 Humulin R SUB-Q Not Given Q4HR [facility] Protocol Levetiracetam 500 mg 01/15/19 22:00 01/18/19 11:18 Keppra PO 500 mg Q12HR NORA Administration Ondansetron HCl 4 mg 01/15/19 21:06 Zofran IV Q6H PRN Nausea And Vomiting Simple Syrup 15 ml 01/17/19 14:21 Simple Syrup FEEDTUBE PRN PRN Hypoglycemia Simple Syrup 30 ml 01/17/19 14:21 Simple Syrup FEEDTUBE PRN PRN Hypoglycemia Sodium Bicarbonate 325 mg 01/17/19 14:21 01/17/19 22:43 Sodium Bicarbonate FEEDTUBE 325 mg PRN PRN Administration For Clogged Feeding Tube Sodium Chloride 10 ml 01/15/19 22:00 01/18/19 11:19 Sodium Chloride Flush Syringe 10 Ml IV 10 ml BID NORA Administration Sodium Chloride 10 ml 01/15/19 21:06 Sodium Chloride Flush Syringe 10 Ml IV PRN PRN LINE FLUSH Tamsulosin HCl 0.4 mg 01/16/19 10:00 01/18/19 11:17 Flomax PO 0.4 mg QDAY NORA Administration
[2019-01-18] MEDS ORDERED: D5W 300 ML IV ONE (18:00)
[2019-01-19] MEDS: HumuLIN R SUB-Q SCH ×6 (03:30→22:47)
[2019-01-19] MEDS: MAXIPIME/NS 2 GM/100 ML 2 GM/100 ML BAG IV SCH (10:03)
[2019-01-19] MEDS: COREG PO SCH ×2 (10:04→22:46)
[2019-01-19] MEDS: FLORINEF PO SCH (10:04)
[2019-01-19] MEDS: SODIUM CHLORIDE FLUSH SYRINGE 10 ML IV SCH ×2 (10:05→22:47)
[2019-01-19] MEDS: KEPPRA PO SCH ×2 (10:05→22:46)
[2019-01-19] MEDS: FLOMAX PO SCH (10:05)
[2019-01-19] MEDS: NACL 0.45% 1000 ML 1,000 ML IV SCH (10:06)
[2019-01-19] MEDS: HEPARIN SUB-Q SCH ×2 (10:06→22:45)
--- NOTE | 2019-01-19 12:03 | Progress Note ---
Assessment and Plan Cultures: 01/15 BCx - no growth Urine Cx - mixed >2 organisms A/P: 68 yo M PMHx HTN, CVA, CHF, BPH, contractures, sacral pressure ulcer, b/l LE pressure ulcer, CAD, DM2, COPD, dementia admitted with UTI 1. Sepsis secondary to UTI - Resolved. Urinalysis with significant pyuria. Urine culture mixed . 2 organisms. Surprisingly, his most recent positive urine culture was in May with Pseudomonas despite recurrently positive blood c ultures. In light of this, will change ceftriaxone to cefepime pending urine and blood cultures. Would not be surprised if blood cultures are again positive. 2. Chronic sacral pressure ulcer - seen in room when wound care was dressing. No obvious purulence or change. Wouldn't recommend treating at this point unless symptoms change. Unless new purulent discharge is observed would avoid culturing in order to avoid complicating picture with colonizers. 3. chronic b/l LE pressure ulcers 4. HTN 5. CVA 6. CHF 7. CAD 8. DM2 9. COPD 10. Dementia Recs: - Continue Cefepime 2g q24h for 7 days. ( stop date: 01/23/19) Jacquie Jean Baptiste NP [facility] M: [id number] O:[phone] Subjective Date of service: 01/19/19 Principal diagnosis: sepsis bladder outlet obst Interval history: Patient seen and examined. Reports generalized weakness and pain. No fever. Objective - Exam Narrative Exam: Constitutional: Awake, Generalized weakness and pain Head, Ears, Nose: Normocephalic, atraumatic. External ears, nose normal Eyes: Conjunctivae/corneas clear. No icterus. No ptosis. Neck: Supple, no meningeal signs Oral: dentition fair, no thrush Cardiovascular: S1, S2 normal. Respiratory: Good air entry, clear to auscultation bilaterally GI: Soft, non-tender; bowel sounds normal. No peritoneal signs. : Chaudhary in place Musculoskeletal: No pedal edema, no cyanosis. Skin: No rash or abscess Hem/Lymphatic: No palpable cervical or supraclavicular nodes. No lymphangitis Neurological: Awake. Not following commands. - Constitutional Vitals: Vital Signs Temp Pulse Resp BP Pulse Ox 97.7 F 69 14 148/69 96 01/19/19 07:38 01/19/19 10:04 01/19/19 07:38 01/19/19 10:04 01/19/19 08:26 Temperature -Last 24 Hours Temperature 97.7 F Temperature 97.4 F Temperature 97.4 F Temperature 98.3 F Temperature 98.4 F Temperature 98.5 F - Labs CBC & Chem 7: 01/18/19 04:00 01/18/19 04:00
--- NOTE | 2019-01-19 14:25 | Progress Note ---
Assessment and Plan - Patient Problems (1) Dilated cardiomyopathy Current Visit: Yes Status: Acute Plan to address problem: Patient is not a candidate for aggressive cardiac therapies, continued conservative management, will follow intermittently. Subjective Date of service: 01/19/19 Principal diagnosis: sepsis bladder outlet obst Interval history: Patient is frail, cachectic, chronically ill appearing. No new cardiac complaints. Objective Vital Signs Temp Pulse Pulse Resp BP BP Pulse Ox 01/19/19 13:48 98.3 F 67 19 146/87 96 01/19/19 10:04 69 148/69 01/19/19 10:00 73 69 22 99 01/19/19 08:26 96 01/19/19 07:38 97.7 F 73 14 129/53 96 01/19/19 05:02 97.4 F L 67 18 100/41 98 01/19/19 04:00 62 01/18/19 22:57 97.4 F L 70 20 137/65 97 01/18/19 22:42 70 133/68 01/18/19 22:00 100 01/18/19 19:17 67 01/18/19 19:11 98.3 F 66 20 133/68 99 01/18/19 17:30 98.4 F 69 20 114/58 99 01/18/19 15:00 88 - Physical Examination General: No Apparent Distress, Cachectic HEENT: Positive: PERRL Neck: Positive: neck supple Cardiac: Positive: Reg Rate and Rhythm Lungs: Positive: Decreased Breath Sounds Neuro: Positive: Weakness Abdomen: Positive: Soft Skin: Positive: Clear Extremities: Absent: edema
[2019-01-19 15:58] LABS: Calcium 8.4 mg/dL (8.4-10.2)
[2019-01-19 15:59] LABS: Basophils # (Auto) 0.1 K/mm3 (0.0-0.1); Basophils % (Auto) 0.9 % (0.0-1.8); Eosinophils # (Auto) 0.3 K/mm3 (0.0-0.4); Eosinophils % (Auto) 4.5 % (0.0-4.3); Hematocrit 24.8 % (35.5-45.6); Hemoglobin 7.9 gm/dl (11.8-15.2); Lymphocytes # (Auto) 0.7 K/mm3 (1.2-5.4); Lymphocytes % (Auto) 11.2 % (13.4-35.0); Mean Corpuscular HGB Conc 32 % (32-34); Mean Corpuscular Volume 86 fl (84-94); Monocytes # (Auto) 0.5 K/mm3 (0.0-0.8); Monocytes % (Auto) 8.8 % (0.0-7.3); Platelet Count 411 K/mm3 (140-440); Red Blood Count 2.87 M/mm3 (3.65-5.03); Red Cell Distribution Width 17.4 % (13.2-15.2)
--- NOTE | 2019-01-19 16:57 | Progress Note ---
Assessment and Plan - Patient Problems (1) Acute anemia Current Visit: No Status: Acute Plan to address problem: Acute worsening anemia Hemoglobin 7.7 s/p Prbc transfusion Trend CBC Blood transfusion if indicated and hemoglobin worsens (2) Acute hypernatremia Current Visit: No Status: Acute Plan to address problem: Acute hypernatremia:resolved. Received 3 L of saline in the emergency room with worsening hypernatremia Received alternating D5W and half normal saline Can stop half normal saline Trend BMP. (3) Acute kidney injury Current Visit: No Status: Acute Plan to address problem: Acute kidney injury Received normal saline in the emergency room Did not receive maintenance fluids 0.45% saline was ordered on 01/16 and stopped by primary team due to concern for dyspnea however at my evaluation he appeared stable Discussed with primary team on 01/16 to ensure IVF unless patient decompensating given worsening renal function. Received a fluid bolus on 01/16 received half normal saline given hypernatremia and acute kidney injury I reviewed renal ultrasound without hydronephrosis creatinine improved from 4.1 to 3.7 change to bicarb infusion @ 75cc/hr given worsening acidosis. (4) Metabolic acidosis Current Visit: Yes Status: Acute Plan to address problem: Metabolic Acidosis - 2/2 kerry Stop Saline infusion Will give Bicarb infusion @ 75cc/hr. Subjective Principal diagnosis: sepsis bladder outlet obst Interval history: 68-year-old gentleman with medical history significant for hypertension, diabetes mellitus type 2, CVA, contractures admitted with hyperkalemia and wors ening renal function Patient seen today He is more awake today tells me he wants to sleep still remains oliguric has some edema. Objective - Vital Signs Vital signs: Vital Signs - 12hr 01/19/19 01/19/19 01/19/19 05:02 07:38 08:26 Temperature 97.4 F L 97.7 F Pulse Rate 67 73 Pulse Rate [ Apical] Respiratory 18 14 Rate Blood Pressure 100/41 129/53 Blood Pressure [Left] O2 Sat by Pulse 98 96 96 Oximetry 01/19/19 01/19/19 01/19/19 10:00 10:04 13:48 Temperature 98.3 F Pulse Rate 73 69 67 Pulse Rate [ 69 Apical] Respiratory 22 19 Rate Blood Pressure 148/69 Blood Pressure 146/87 [Left] O2 Sat by Pulse 99 96 Oximetry - General Appearance General appearance: well-developed, chronically ill, frail EENT: ATNC, PERRL, mucous membranes moist Neck: no JVD Respiratory: Present: Ronchi Cardiology: regular, S1S2 Gastrointestinal: normal, normoactive bowel sounds Integumentary: no rash Neurologic: alert and oriented x3, CN 3-12 intact Psychiatric: mood/affect appropriate - Lab 01/19/19 Unknown 01/19/19 Unknown Most recent lab results ABG pH 7.468 pH Units (7.350-7.450) H 01/16/19 09:50 ABG pCO2 29.8 mm Hg 01/16/19 09:50 ABG pO2 86.7 mm Hg (80.0-90.0) 01/16/19 09:50 ABG HCO3 21.1 mmol/L (20.0-26.0) 01/16/19 09:50 ABG O2 Saturation 97.3 % (95.0-99.0) 01/16/19 09:50 Calcium 8.4 mg/dL (8.4-10.2) 01/19/19 Unknown Magnesium 2.20 mg/dL (1.7-2.3) 01/15/19 18:27 49.5 mg/dL (0.1-20.0) H 01/16/19 Unknown 56 mmol/L 01/16/19 Unknown 181 mg/dL (5-11.8) H 01/16/19 Unknown - Imaging Chest x-ray: image reviewed (I reviewed CXR without overt edema. ) Medications & Allergies - Medications Allergies/Adverse Reactions: Allergies lisinopril Allergy (Verified 10/01/18 15:17) Unknown tramadol Allergy (Verified 07/29/18 18:39) Unknown Home Medications: Home Medications Medication Instructions Recorded Confirmed Last Taken Type Multivit-Min/Iron Fum/Folic AC 1 each PO DAILY 03/24/18 01/19/19 12/29/18 History [Pyxpx-Bxowkvn-Xlfphucs Tablet] Acetaminophen 650 mg NGTUBE Q6H PRN 07/30/18 01/19/19 12/29/18 History Ipratropium/Albuterol Sulfate 1 ampul IH BID 07/30/18 01/19/19 12/29/18 History [DUONEB *Not for PRN Use*] Tamsulosin [Flomax] 0.4 mg PO QDAY 07/30/18 01/19/19 01/19/19 10:00 History Vit C/Ascorbate Calcium,Sodium 500 mg NGTUBE BID 07/30/18 01/19/19 12/29/18 History [Vitamin C 500 mg/15 ml Liquid] Zinc Sulfate 220 mg NGTUBE QDAY 07/30/18 01/19/19 12/29/18 History levETIRAcetam [Keppra INJ] 500 mg PO Q12H 07/30/18 01/19/19 01/19/19 13:55 History Phosphorus #1 [K-Phos Neutral] 250 mg PO QID #30 tablet 08/23/18 01/19/19 12/29/18 Rx AtorvaSTATin [Lipitor] 40 mg NGTUBE QHS #30 tablet 10/21/18 01/19/19 12/29/18 Rx Insulin Aspart [NovoLOG 100 0 unit SQ AC 11/01/18 01/19/19 12/29/18 History UNITS/ML VIAL] ALBUTEROL NEB's [Proventil 0.083% 2.5 mg IH Q3HRT PRN nebu 12/27/18 01/19/19 12/29/18 Rx NEBS] Carvedilol [Coreg] 6.25 mg PO BID tablet 12/27/18 01/19/19 12/29/18 Rx Cefuroxime Axetil [Ceftin] 500 mg PO Q12H #140 ml 01/02/19 01/19/19 Unknown Rx Active Medications: Generic Name Dose Route Start Last Admin Trade Name Freq PRN Reason Stop Dose Admin Acetaminophen 650 mg 01/15/19 21:06 01/17/19 01:40 Tylenol PO 650 mg Q4H PRN Administration Pain MILD(1-3)/Fever >100.5/PRICE Albuterol 2.5 mg 01/15/19 21:28 Proventil IH Q4HRT PRN Shortness Of Breath Lipase/Protease/Amylase 1 each 01/17/19 14:21 Pancrenomi Moore 10,500 Unit FEEDTUBE PRN PRN For Clogged Feeding Tube Carvedilol 6.25 mg 01/15/19 22:00 01/19/19 10:04 Coreg PO 6.25 mg BID NORA Administration Dextrose 50 ml 01/15/19 19:31 D50w (25gm) Syringe IV PRN PRN Hypoglycemia Fludrocortisone Acetate 0.1 mg 01/16/19 16:00 01/19/19 10:04 Florinef PO 0.1 mg QDAY NORA Administration Heparin Sodium (Porcine) 5,000 unit 01/15/19 22:00 01/19/19 10:06 Heparin SUB-Q 5,000 unit Q12HR NORA Administration Cefepime HCl 2 gm in 100 mls @ 200 mls/hr 01/17/19 10:00 01/19/19 10:03 Maxipime/Ns 2 Gm/100 Ml IV 200 mls/hr Q24HR NORA Administration Protocol Sodium Bicarbonate 150 meq/ 1,150 mls @ 75 mls/hr 01/19/19 17:00 Dextrose IV DIRECT [facility] Insulin Human Regular 0 units 01/15/19 22:00 01/19/19 10:00 Humulin R SUB-Q Not Given Q4HR [facility] Protocol Levetiracetam 500 mg 01/15/19 22:00 01/19/19 10:05 Keppra PO 500 mg Q12HR NORA Administration Ondansetron HCl 4 mg 01/15/19 21:06 Zofran IV Q6H PRN Nausea And Vomiting Simple Syrup 15 ml 01/17/19 14:21 Simple Syrup FEEDTUBE PRN PRN Hypoglycemia Simple Syrup 30 ml 01/17/19 14:21 Simple Syrup FEEDTUBE PRN PRN Hypoglycemia Sodium Bicarbonate 325 mg 01/17/19 14:21 01/17/19 22:43 Sodium Bicarbonate FEEDTUBE 325 mg PRN PRN Administration For Clogged Feeding Tube Sodium Chloride 10 ml 01/15/19 22:00 01/19/19 10:05 Sodium Chloride Flush Syringe 10 Ml IV 10 ml BID NORA Administration Sodium Chloride 10 ml 01/15/19 21:06 Sodium Chloride Flush Syringe 10 Ml IV PRN PRN LINE FLUSH Tamsulosin HCl 0.4 mg 01/16/19 10:00 01/19/19 10:05 Flomax PO 0.4 mg QDAY NORA Administration
[2019-01-19] MEDS: SODIUM BICARBONATE 150 MEQ in D5W 1,000 ML IV SCH (18:03)
--- NOTE | 2019-01-19 19:37 | Progress Note ---
Assessment and Plan - Patient Problems (1) ARF (acute renal failure) with tubular necrosis Current Visit: No Status: Acute Plan to address problem: With acute renal failure. Creatinine is 3.6. Patient also had hyponatremia renal following patient started on half normal saline. We'll up in a.m. (2) Acute hypernatremia Current Visit: No Status: Acute Plan to address problem: Patient being treated with half normal saline nephrology following. (3) Acute kidney injury Current Visit: No Status: Acute Plan to address problem: Show with acute kidney injury being followed by renal. Long discussion about patient's volume status and sodium and potential correction no evidence of respiratory distress. (4) Anemia Current Visit: No Status: Acute Plan to address problem: Anemia most likely secondary to chronic disease. Patient H&H is 7.8 and 28. We'll transfuse if hemoglobin and 7. (5) Pressure ulcer of left hip, stage 4 Current Visit: No Status: Acute Plan to address problem: Patient will multiple wounds in different stages of healing heels and sacrum. History sacrum. Stage IV heel. (6) Seizure Current Visit: No Status: Acute Plan to address problem: No recent seizure activity. We'll continue medical management for seizure. 4 Ativan. (7) Dementia Current Visit: No Status: Chronic Plan to address problem: With poor cognition but alert. May be multi-infarct dementia. (8) T2DM (type 2 diabetes mellitus) Current Visit: No Status: Chronic (9) Hyperkalemia Current Visit: Yes Status: Acute Plan to address problem: This was one of the main reasons patient was admitted with a potassium of 6.7 this is being corrected to 4. Patient should be able to go back to the custodial and discontinue if fluids are correcting his problems with the acute renal failure. History Interval history: Patient is frail chronically ill-appearing but alert. Contractures. Hospital course could not received CT scan secondary to severe contractures. mr Posey getting changed today I visualized his wounds and different stages of healing. He shouldn't denied pain. Hospital course was complicated by diarrhea every time he received PEG tube feedings. May need additional 2 feedings. Patient was on Cerner at the nursing facility. And did not experience diarrhea as I know. Hospitalist Physical - Constitutional Vitals: Temp Pulse Resp BP Pulse Ox 97.4 F L 65 16 115/63 100 01/19/19 16:51 01/19/19 17:12 01/19/19 16:51 01/19/19 16:51 01/19/19 16:51 General appearance: Present: no acute distress, cachectic - EENT Eyes: Present: PERRL, EOM intact ENT: clear oral mucosa, poor dentition - Neck Neck: Present: supple, normal ROM - Respiratory Respiratory effort: normal Respiratory: bilateral: diminished - Cardiovascular Rhythm: regular - Extremities Extremities: no ischemia, pulses symmetrical Extremity abnormal: edema, ulceration, pulses diminished, tenderness - Abdominal General gastrointestinal: soft, non-tender, non-distended, normal bowel sounds - Neurologic Neurologic: other (decubitus ulcers contracted with focal deficits. Poor judgment cognitive impairment) Results - Labs CBC & Chem 7: 01/19/19 Unknown 01/19/19 Unknown Labs: Laboratory Last Values WBC 6.0 K/mm3 (4.5-11.0) 01/19/19 Unknown RBC 2.87 M/mm3 (3.65-5.03) L 01/19/19 Unknown Hgb 7.9 gm/dl (11.8-15.2) L 01/19/19 Unknown Hct 24.8 % (35.5-45.6) L 01/19/19 Unknown MCV 86 fl (84-94) 01/19/19 Unknown MCH 28 pg (28-32) 01/19/19 Unknown MCHC 32 % (32-34) 01/19/19 Unknown RDW 17.4 % (13.2-15.2) H 01/19/19 Unknown Plt Count 411 K/mm3 (140-440) 01/19/19 Unknown Lymph % (Auto) 11.2 % (13.4-35.0) L 01/19/19 Unknown [place] % (Auto) 8.8 % (0.0-7.3) H 01/19/19 Unknown Eos % (Auto) 4.5 % (0.0-4.3) H 01/19/19 Unknown Baso % (Auto) 0.9 % (0.0-1.8) 01/19/19 Unknown Lymph # 0.7 K/mm3 (1.2-5.4) L 01/19/19 Unknown [place] # 0.5 K/mm3 (0.0-0.8) 01/19/19 Unknown Eos # 0.3 K/mm3 (0.0-0.4) 01/19/19 Unknown Baso # 0.1 K/mm3 (0.0-0.1) 01/19/19 Unknown Add Manual Diff Complete 01/18/19 00:22 Total Counted 100 01/18/19 00:22 Seg Neutrophils % 74.6 % (40.0-70.0) H 01/19/19 Unknown Seg Neuts % (Manual) 76.0 % (40.0-70.0) H 01/18/19 00:22 0 % 01/18/19 00:22 12.0 % (13.4-35.0) L 01/18/19 00:22 Reactive Lymphs % (Man) 0 % 01/18/19 00:22 6.0 % (0.0-7.3) 01/18/19 00:22 5.0 % (0.0-4.3) H 01/18/19 00:22 1.0 % (0.0-1.8) 01/18/19 00:22 0 % 01/18/19 00:22 0 % 01/18/19 00:22 0 % 01/18/19 00:22 0 % 01/18/19 00:22 Nucleated RBC % Not Reportable 01/18/19 00:22 Seg Neutrophils # 4.5 K/mm3 (1.8-7.7) 01/19/19 Unknown Seg Neutrophils # Man 8.1 K/mm3 (1.8-7.7) H 01/18/19 00:22 Band Neutrophils # 0.0 K/mm3 01/18/19 00:22 1.3 K/mm3 (1.2-5.4) 01/18/19 00:22 Abs React Lymphs (Man) 0.0 K/mm3 01/18/19 00:22 0.6 K/mm3 (0.0-0.8) 01/18/19 00:22 0.5 K/mm3 (0.0-0.4) H 01/18/19 00:22 0.1 K/mm3 (0.0-0.1) 01/18/19 00:22 0.0 K/mm3 01/18/19 00:22 0.0 K/mm3 01/18/19 00:22 0.0 K/mm3 01/18/19 00:22 Blast Cells # 0.0 K/mm3 01/18/19 00:22 WBC Morphology Not Reportable 01/18/19 00:22 Hypersegmented Neuts Not Reportable 01/18/19 00:22 Hyposegmented Neuts Not Reportable 01/18/19 00:22 Hypogranular Neuts Not Reportable 01/18/19 00:22 Cancelled 01/16/19 10:40 Not Reportable 01/18/19 00:22 Not Reportable 01/18/19 00:22 Not Reportable 01/18/19 00:22 Not Reportable 01/18/19 00:22 Not Reportable 01/18/19 00:22 Not Reportable 01/18/19 00:22 Not Reportable 01/18/19 00:22 Not Reportable 01/18/19 00:22 Plt Clumps, EDTA Not Reportable 01/18/19 00:22 Not Reportable 01/18/19 00:22 Not Reportable 01/18/19 00:22 Not Reportable 01/18/19 00:22 Plt Morphology Comment Not Reportable 01/18/19 00:22 RBC Morphology Normal 01/18/19 00:22 Dimorphic RBCs Not Reportable 01/18/19 00:22 Not Reportable 01/18/19 00:22 Not Reportable 01/18/19 00:22 Not Reportable 01/18/19 00:22 Cancelled 01/16/19 10:40 Not Reportable 01/18/19 00:22 Not Reportable 01/18/19 00:22 Not Reportable 01/18/19 00:22 Not Reportable 01/18/19 00:22 Not Reportable 01/18/19 00:22 Not Reportable 01/18/19 00:22 Not Reportable 01/18/19 00:22 Not Reportable 01/18/19 00:22 Not Reportable 01/18/19 00:22 Cancelled 01/16/19 10:40 Not Reportable 01/18/19 00:22 Not Reportable 01/18/19 00:22 Not Reportable 01/18/19 00:22 Not Reportable 01/18/19 00:22 Not Reportable 01/18/19 00:22 Not Reportable 01/18/19 00:22 Not Reportable 01/18/19 00:22 Acanthocytes (Spur) Not Reportable 01/18/19 00:22 Rouleaux Not Reportable 01/18/19 00:22 Not Reportable 01/18/19 00:22 Not Reportable 01/18/19 00:22 Not Reportable 01/18/19 00:22 Not Reportable 01/18/19 00:22 Hem Pathologist Commnt No 01/18/19 00:22 PT 17.8 Sec. (12.2-14.9) H 01/15/19 19:16 INR 1.51 (0.87-1.13) H 01/15/19 19:16 APTT 50.6 Sec. (24.2-36.6) H 01/15/19 19:16 ABG pH 7.468 pH Units (7.350-7.450) H 01/16/19 09:50 ABG pCO2 29.8 mm Hg 01/16/19 09:50 ABG pO2 86.7 mm Hg (80.0-90.0) 01/16/19 09:50 ABG HCO3 21.1 mmol/L (20.0-26.0) 01/16/19 09:50 ABG O2 Saturation 97.3 % (95.0-99.0) 01/16/19 09:50 ABG O2 Content 11.2 (0.0-44) 01/16/19 09:50 ABG Base Excess -2.1 mmol/L (-2.0-3.0) L 01/16/19 09:50 ABG Hemoglobin 8.3 gm/dl (14.0-18.0) L 01/16/19 09:50 ABG Carboxyhemoglobin 1.9 % (0.0-5.0) 01/16/19 09:50 ABG Methemoglobin 0.5 % (0.0-1.5) 01/16/19 09:50 95.0 % (95.0-99.0) 01/16/19 09:50 28 % 01/16/19 09:50 Sodium 142 mmol/L (137-145) D 01/19/19 Unknown Potassium 4.0 mmol/L (3.6-5.0) 01/19/19 Unknown Chloride 106.3 mmol/L (98-107) 01/19/19 Unknown Carbon Dioxide 15 mmol/L (22-30) L 01/19/19 Unknown 25 mmol/L 01/19/19 Unknown BUN 95 mg/dL (9-20) H 01/19/19 Unknown 3.7 mg/dL (0.8-1.5) H 01/19/19 Unknown Estimated GFR 20 ml/min 01/19/19 Unknown 26 % 01/19/19 Unknown Glucose 83 mg/dL (75-100) 01/19/19 Unknown POC Glucose 97 (70-105) 01/19/19 17:00 Lactic Acid 0.90 mmol/L (0.7-2.0) 01/17/19 09:27 7.3 mg/dL (3.5-7.6) 01/15/19 23:04 Calcium 8.4 mg/dL (8.4-10.2) 01/19/19 Unknown Magnesium 2.20 mg/dL (1.7-2.3) 01/15/19 18:27 160 units/L (55-170) 01/15/19 18:27 0.633 ng/mL (0.00-0.029) H* 01/17/19 11:26 Triglycerides 122 mg/dL (2-149) 01/17/19 06:15 Cholesterol 52 mg/dL (50-199) 01/17/19 06:15 11 mg/dL (50-130) L 01/17/19 06:15 19 mg/dL (40-59) L 01/17/19 06:15 2.73 % 01/17/19 06:15 Yellow (Yellow) 01/15/19 18:50 Cloudy (Clear) 01/15/19 18:50 8.0 (5.0-7.0) H 01/15/19 18:50 Ur Specific [place] 1.015 (1.003-1.030) 01/15/19 18:50 100 mg/dl mg/dL (Negative) 01/15/19 18:50 Neg mg/dL (Negative) 01/15/19 18:50 Neg mg/dL (Negative) 01/15/19 18:50 Sm (Negative) 01/15/19 18:50 Neg (Negative) 01/15/19 18:50 Neg (Negative) 01/15/19 18:50 < 2.0 mg/dL (<2.0) 01/15/19 18:50 Ur Leukocyte Esterase Lg (Negative) 01/15/19 18:50 > 182.0 /HPF (0.0-6.0) H 01/15/19 18:50 14.0 /HPF (0.0-6.0) 01/15/19 18:50 1+ /HPF (Negative) 01/15/19 18:50 3+ /HPF 01/15/19 18:50 Few /HPF 01/15/19 18:50 49.5 mg/dL (0.1-20.0) H 01/16/19 Unknown Protein/Creatinin Ratio 3.66 01/16/19 Unknown 56 mmol/L 01/16/19 Unknown 181 mg/dL (5-11.8) H 01/16/19 Unknown Blood Type O POSITIVE 01/17/19 06:53 Antibody Screen Negative 01/17/19 06:53 Crossmatch See Detail 01/17/19 06:53 Active Medications - Current Medications Current Medications: Generic Name Dose Route Start Last Admin Trade Name Freq PRN Reason Stop Dose Admin Acetaminophen 650 mg 01/15/19 21:06 01/17/19 01:40 Tylenol PO 650 mg Q4H PRN Administration Pain MILD(1-3)/Fever >100.5/PRICE Albuterol 2.5 mg 01/15/19 21:28 Proventil IH Q4HRT PRN Shortness Of Breath Lipase/Protease/Amylase 1 each 01/17/19 14:21 Pancreazadela Moore 10,500 Unit FEEDTUBE PRN PRN For Clogged Feeding Tube Carvedilol 6.25 mg 01/15/19 22:00 01/19/19 10:04 Coreg PO 6.25 mg BID NORA Administration Dextrose 50 ml 01/15/19 19:31 D50w (25gm) Syringe IV PRN PRN Hypoglycemia Fludrocortisone Acetate 0.1 mg 01/16/19 16:00 01/19/19 10:04 Florinef PO 0.1 mg QDAY NORA Administration Heparin Sodium (Porcine) 5,000 unit 01/15/19 22:00 01/19/19 10:06 Heparin SUB-Q 5,000 unit Q12HR NORA Administration Cefepime HCl 2 gm in 100 mls @ 200 mls/hr 01/17/19 10:00 01/19/19 10:03 Maxipime/Ns 2 Gm/100 Ml IV 200 mls/hr Q24HR NORA Administration Protocol Sodium Bicarbonate 150 meq/ 1,150 mls @ 75 mls/hr 01/19/19 17:00 01/19/19 18:03 Dextrose IV 75 mls/hr DIRECT NORA Administration Insulin Human Regular 0 units 01/15/19 22:00 01/19/19 18:03 Humulin R SUB-Q Not Given Q4HR NORA Protocol Levetiracetam 500 mg 01/15/19 22:00 01/19/19 10:05 Keppra PO 500 mg Q12HR NORA Administration Ondansetron HCl 4 mg 01/15/19 21:06 Zofran IV Q6H PRN Nausea And Vomiting Simple Syrup 15 ml 01/17/19 14:21 Simple Syrup FEEDTUBE PRN PRN Hypoglycemia Simple Syrup 30 ml 01/17/19 14:21 Simple Syrup FEEDTUBE PRN PRN Hypoglycemia Sodium Bicarbonate 325 mg 01/17/19 14:21 01/17/19 22:43 Sodium Bicarbonate FEEDTUBE 325 mg PRN PRN Administration For Clogged Feeding Tube Sodium Chloride 10 ml 01/15/19 22:00 01/19/19 10:05 Sodium Chloride Flush Syringe 10 Ml IV 10 ml BID NORA Administration Sodium Chloride 10 ml 01/15/19 21:06 Sodium Chloride Flush Syringe 10 Ml IV PRN PRN LINE FLUSH Tamsulosin HCl 0.4 mg 01/16/19 10:00 01/19/19 10:05 Flomax PO 0.4 mg QDAY NORA Administration Nutrition/Malnutrition Assess - Dietary Evaluation Nutrition/Malnutrition Findings: Nutrition Notes Start: 01/16/19 14:38 Freq: Status: Active Protocol: Document 01/19/19 13:11 RM (Rec: 01/19/19 13:19 RM [id number]) Nutrition Notes Initial or Follow up Reassessment Current Diagnosis Acute Kidney Injury,COPD, Coronary Artery Disease, Diabetes,Sepsis,Hypertension, Heart Failure Other Pertinent Diagnosis Hx CVA, Sacral PU, UTI, Dementia, Hx seizure disorder, PEG Current Diet Nepro at 40 ml/hr Labs/Tests Na 151 K 4.3 BUN 106 Creat 4.1 Pertinent Medications Cefepime HCl Height 5 ft 7 in Weight 66.8 kg [place] Body Weight (kg) 67.27 BMI 23.1 Subjective/Other Information Earlier today nurse stated that TF was turned off d/t pt having diarrhea at goal rate and requested TF formula change to address diarrhea. Nurse later informed television writer that requested that Nepro be resumed. Burn Absent Trauma Absent #1 Nutrition Diagnosis Inadequate oral intake Diagnosis Progress(for reassessment Continues documentation) Is patient on ventilator? No Is Patient Ambulatory and/or Out of Bed No REE-([facility]-confined to bed) [phone] Calculation Used for Recommendations [facility] Additional Notes Protein Needs: 97-110g (1.5-1. 7g/kg) Fluid Needs: 1 ml/kcal Nutrition Intervention Nutrition Support: Nepro at 40 ml/hr. Water flush 250 mls q 4 hrs until hypernatremia resolves. Water flush of 150 mls q 4 hrs once hypernatremia resolves. Kcal 1,728 Protein (gm) 78 Fluid (mL) 698 Add Supplement/Snack (indicate name/kcal Was not previously ordered. /protein ) Hold off ordering until diarrhea resolves. Goal #1 TF tolerance Goal #2 Meet at least 75% of calorie and protein needs via TF Anticipated Discharge Needs: TF Follow-Up By: 01/21/19 Additional Comments Follow for TF tolerance, renal labs
[2019-01-20] MEDS: HumuLIN R SUB-Q SCH ×6 (02:43→23:17)
[2019-01-20 06:30] LABS: Calcium 8.4 mg/dL (8.4-10.2)
[2019-01-20] MEDS: FLOMAX PO SCH (09:39)
[2019-01-20] MEDS: MAXIPIME/NS 2 GM/100 ML 2 GM/100 ML BAG IV SCH (09:39)
[2019-01-20] MEDS: KEPPRA PO SCH ×2 (09:40→23:16)
[2019-01-20] MEDS: COREG PO SCH ×2 (09:41→23:16)
[2019-01-20] MEDS: SODIUM CHLORIDE FLUSH SYRINGE 10 ML IV SCH ×2 (09:42→23:16)
[2019-01-20] MEDS: FLORINEF PO SCH (09:42)
[2019-01-20] MEDS: HEPARIN SUB-Q SCH ×2 (09:43→23:16)
[2019-01-20] MEDS: SODIUM BICARBONATE 150 MEQ in D5W 1,000 ML IV SCH (10:40)
[2019-01-20] MEDS: TYLENOL PO PRN (10:43)
--- NOTE | 2019-01-20 14:43 | Progress Note ---
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 * pCXR no acute findings, Acute respiratory failure -ABG reviewed -consulted pulmonology -d/c iv fluids, considering iv lasix but sbp is low Sepsis -Likely secondary to urinary tract infection -Blood Cultures pending -On IV abx -Gentle hydration with IVF -ID consulted, input noted, change iv rocephin to cefepime -Continue to monitor UTI -Urine WBC >182 -Urine culture pending, -urine culture contaminated -Start on IV Abx -bright changed by Dr. Gabriel on 01/16/19 Hypotension -IVF but carefully with CHF history MÓNICA, vasomotor nephropathy, ATN -Cr on admission 3.6 with GFR 20 -Baseline around 1.0 -Avoid nephrotoxic agents -Renal dose all meds -Nephrology consulted Hyperkalemia -Potassium on admission 6.7 -Received hyperkalemic cocktail in ED -Repeat labs pending -Dr. Sanchez following Hx BPH -Bright catheter -disContinue Flomax due to hypotension Hx Seizure disorder -continue Keppra Hypertension, now hypotensive -Continue to monitor BP -disContinue Coreg Hx of Pressure Ulcers -Sacral and BLE -Wound care consult pending DM 2 -POC BG monitoring -SSI coverage COPD -Albuterol prn Hx Dementia Hx CHF, EF 30-35% Hx CVA DVT PPX -stop Heparin acute on chronic anemia of chronic disease s/p 1 [address] [facility], transfuse blood 01/17/19 monitor cbc closely Disposition: continue inpatient care, d/c back to [place] once renal clears History Interval history: Patient was seen and examined. Follow-up on current diagnosis hyperkalemia. No overnight events reported to me. Patient denies any chest pain, shortness breath, nausea/vomiting or severe headaches. Imaging, nursing note, chart, labs and old chart reviewed. Discussed with patient. Hospitalist Physical - Physical exam Narrative exam: Gen: severely disable, contractured legs in position, neck flexed downward, ill appearing, moderated increase in accessory muscles, nonverbal HEENT: NCAT, EOMI, PERRL, OP Clear Neck: supple, no adenopathy, no thyromegaly, no JVD CVS/Heart: Reg tachycardia normal S1S2, pulses present bilaterally Chest/Lungs: tachypneic, CTA B, Symmetrical chest expansion, good air entry bilaterally GI/Abdomen: soft, NTND, good bowel sounds, no guarding or rebound /Bladder: no suprapubic tenderness, no CVA or paraspinal tenderness Neuro: CN 2-12 grossly intact, no new focal deficits Msk/skin: multiple pressure ulcer, sacrum, legs, feet, even elbows, stage 3 at least, atrophic limb x 4 Psych: nonverbal - Constitutional Vitals: Temp Pulse Resp BP Pulse Ox 98.5 F 85 24 94/53 97 01/20/19 11:53 01/20/19 11:53 01/20/19 11:53 01/20/19 11:53 01/20/19 11:53 General appearance: Present: no acute distress, cachectic Results - Labs CBC & Chem 7: 01/19/19 Unknown 01/20/19 05:50 Labs: Laboratory Last Values WBC 6.0 K/mm3 (4.5-11.0) 01/19/19 Unknown RBC 2.87 M/mm3 (3.65-5.03) L 01/19/19 Unknown Hgb 7.9 gm/dl (11.8-15.2) L 01/19/19 Unknown Hct 24.8 % (35.5-45.6) L 01/19/19 Unknown MCV 86 fl (84-94) 01/19/19 Unknown MCH 28 pg (28-32) 01/19/19 Unknown MCHC 32 % (32-34) 01/19/19 Unknown RDW 17.4 % (13.2-15.2) H 01/19/19 Unknown Plt Count 411 K/mm3 (140-440) 01/19/19 Unknown Lymph % (Auto) 11.2 % (13.4-35.0) L 01/19/19 Unknown Gaines % (Auto) 8.8 % (0.0-7.3) H 01/19/19 Unknown Eos % (Auto) 4.5 % (0.0-4.3) H 01/19/19 Unknown Baso % (Auto) 0.9 % (0.0-1.8) 01/19/19 Unknown Lymph # 0.7 K/mm3 (1.2-5.4) L 01/19/19 Unknown Gaines # 0.5 K/mm3 (0.0-0.8) 01/19/19 Unknown Eos # 0.3 K/mm3 (0.0-0.4) 01/19/19 Unknown Baso # 0.1 K/mm3 (0.0-0.1) 01/19/19 Unknown Add Manual Diff Complete 01/18/19 00:22 Total Counted 100 01/18/19 00:22 Seg Neutrophils % 74.6 % (40.0-70.0) H 01/19/19 Unknown Seg Neuts % (Manual) 76.0 % (40.0-70.0) H 01/18/19 00:22 0 % 01/18/19 00:22 12.0 % (13.4-35.0) L 01/18/19 00:22 Reactive Lymphs % (Man) 0 % 01/18/19 00:22 6.0 % (0.0-7.3) 01/18/19 00:22 5.0 % (0.0-4.3) H 01/18/19 00:22 1.0 % (0.0-1.8) 01/18/19 00:22 0 % 01/18/19 00:22 0 % 01/18/19 00:22 0 % 01/18/19 00:22 0 % 01/18/19 00:22 Nucleated RBC % Not Reportable 01/18/19 00:22 Seg Neutrophils # 4.5 K/mm3 (1.8-7.7) 01/19/19 Unknown Seg Neutrophils # Man 8.1 K/mm3 (1.8-7.7) H 01/18/19 00:22 Band Neutrophils # 0.0 K/mm3 01/18/19 00:22 1.3 K/mm3 (1.2-5.4) 01/18/19 00:22 Abs React Lymphs (Man) 0.0 K/mm3 01/18/19 00:22 0.6 K/mm3 (0.0-0.8) 01/18/19 00:22 0.5 K/mm3 (0.0-0.4) H 01/18/19 00:22 0.1 K/mm3 (0.0-0.1) 01/18/19 00:22 0.0 K/mm3 01/18/19 00:22 0.0 K/mm3 01/18/19 00:22 0.0 K/mm3 01/18/19 00:22 Blast Cells # 0.0 K/mm3 01/18/19 00:22 WBC Morphology Not Reportable 01/18/19 00:22 Hypersegmented Neuts Not Reportable 01/18/19 00:22 Hyposegmented Neuts Not Reportable 01/18/19 00:22 Hypogranular Neuts Not Reportable 01/18/19 00:22 Cancelled 01/16/19 10:40 Not Reportable 01/18/19 00:22 Not Reportable 01/18/19 00:22 Not Reportable 01/18/19 00:22 Not Reportable 01/18/19 00:22 Not Reportable 01/18/19 00:22 Not Reportable 01/18/19 00:22 Not Reportable 01/18/19 00:22 Not Reportable 01/18/19 00:22 Plt Clumps, EDTA Not Reportable 01/18/19 00:22 Not Reportable 01/18/19 00:22 Not Reportable 01/18/19 00:22 Not Reportable 01/18/19 00:22 Plt Morphology Comment Not Reportable 01/18/19 00:22 RBC Morphology Normal 01/18/19 00:22 Dimorphic RBCs Not Reportable 01/18/19 00:22 Not Reportable 01/18/19 00:22 Not Reportable 01/18/19 00:22 Not Reportable 01/18/19 00:22 Cancelled 01/16/19 10:40 Not Reportable 01/18/19 00:22 Not Reportable 01/18/19 00:22 Not Reportable 01/18/19 00:22 Not Reportable 01/18/19 00:22 Not Reportable 01/18/19 00:22 Not Reportable 01/18/19 00:22 Not Reportable 01/18/19 00:22 Not Reportable 01/18/19 00:22 Not Reportable 01/18/19 00:22 Cancelled 01/16/19 10:40 Not Reportable 01/18/19 00:22 Not Reportable 01/18/19 00:22 Not Reportable 01/18/19 00:22 Not Reportable 01/18/19 00:22 Not Reportable 01/18/19 00:22 Not Reportable 01/18/19 00:22 Not Reportable 01/18/19 00:22 Acanthocytes (Spur) Not Reportable 01/18/19 00:22 Rouleaux Not Reportable 01/18/19 00:22 Not Reportable 01/18/19 00:22 Not Reportable 01/18/19 00:22 Not Reportable 01/18/19 00:22 Not Reportable 01/18/19 00:22 Hem Pathologist Commnt No 01/18/19 00:22 PT 17.8 Sec. (12.2-14.9) H 01/15/19 19:16 INR 1.51 (0.87-1.13) H 01/15/19 19:16 APTT 50.6 Sec. (24.2-36.6) H 01/15/19 19:16 ABG pH 7.468 pH Units (7.350-7.450) H 01/16/19 09:50 ABG pCO2 29.8 mm Hg 01/16/19 09:50 ABG pO2 86.7 mm Hg (80.0-90.0) 01/16/19 09:50 ABG HCO3 21.1 mmol/L (20.0-26.0) 01/16/19 09:50 ABG O2 Saturation 97.3 % (95.0-99.0) 01/16/19 09:50 ABG O2 Content 11.2 (0.0-44) 01/16/19 09:50 ABG Base Excess -2.1 mmol/L (-2.0-3.0) L 01/16/19 09:50 ABG Hemoglobin 8.3 gm/dl (14.0-18.0) L 01/16/19 09:50 ABG Carboxyhemoglobin 1.9 % (0.0-5.0) 01/16/19 09:50 ABG Methemoglobin 0.5 % (0.0-1.5) 01/16/19 09:50 95.0 % (95.0-99.0) 01/16/19 09:50 28 % 01/16/19 09:50 Sodium 142 mmol/L (137-145) 01/20/19 05:50 Potassium 3.5 mmol/L (3.6-5.0) L 01/20/19 05:50 Chloride 104.4 mmol/L (98-107) 01/20/19 05:50 Carbon Dioxide 19 mmol/L (22-30) L 01/20/19 05:50 22 mmol/L 01/20/19 05:50 BUN 99 mg/dL (9-20) H 01/20/19 05:50 3.8 mg/dL (0.8-1.5) H 01/20/19 05:50 Estimated GFR 19 ml/min 01/20/19 05:50 26 % 01/20/19 05:50 Glucose 120 mg/dL (75-100) H 01/20/19 05:50 POC Glucose 137 (70-105) H 01/20/19 11:49 Lactic Acid 0.90 mmol/L (0.7-2.0) 01/17/19 09:27 7.3 mg/dL (3.5-7.6) 01/15/19 23:04 Calcium 8.4 mg/dL (8.4-10.2) 01/20/19 05:50 Magnesium 2.10 mg/dL (1.7-2.3) 01/20/19 05:50 160 units/L (55-170) 01/15/19 18:27 0.633 ng/mL (0.00-0.029) H* 01/17/19 11:26 Triglycerides 122 mg/dL (2-149) 01/17/19 06:15 Cholesterol 52 mg/dL (50-199) 01/17/19 06:15 11 mg/dL (50-130) L 01/17/19 06:15 19 mg/dL (40-59) L 01/17/19 06:15 2.73 % 01/17/19 06:15 Yellow (Yellow) 01/15/19 18:50 Cloudy (Clear) 01/15/19 18:50 8.0 (5.0-7.0) H 01/15/19 18:50 Ur Specific [place] 1.015 (1.003-1.030) 01/15/19 18:50 100 mg/dl mg/dL (Negative) 01/15/19 18:50 Neg mg/dL (Negative) 01/15/19 18:50 Neg mg/dL (Negative) 01/15/19 18:50 Sm (Negative) 01/15/19 18:50 Neg (Negative) 01/15/19 18:50 Neg (Negative) 01/15/19 18:50 < 2.0 mg/dL (<2.0) 01/15/19 18:50 Ur Leukocyte Esterase Lg (Negative) 01/15/19 18:50 > 182.0 /HPF (0.0-6.0) H 01/15/19 18:50 14.0 /HPF (0.0-6.0) 01/15/19 18:50 1+ /HPF (Negative) 01/15/19 18:50 3+ /HPF 01/15/19 18:50 Few /HPF 01/15/19 18:50 49.5 mg/dL (0.1-20.0) H 01/16/19 Unknown Protein/Creatinin Ratio 3.66 01/16/19 Unknown 56 mmol/L 01/16/19 Unknown 181 mg/dL (5-11.8) H 01/16/19 Unknown Blood Type O POSITIVE 01/17/19 06:53 Antibody Screen Negative 01/17/19 06:53 Crossmatch See Detail 01/17/19 06:53 Active Medications - Current Medications Current Medications: Generic Name Dose Route Start Last Admin Trade Name Freq PRN Reason Stop Dose Admin Acetaminophen 650 mg 01/15/19 21:06 01/20/19 10:43 Tylenol PO 650 mg Q4H PRN Administration Pain MILD(1-3)/Fever >100.5/PRICE Albuterol 2.5 mg 01/15/19 21:28 Proventil IH Q4HRT PRN Shortness Of Breath Lipase/Protease/Amylase 1 each 08/30/19 14:21 Pancrenagae 10,500 Unit FEEDTUBE PRN PRN For Clogged Feeding Tube Carvedilol 6.25 mg 01/15/19 22:00 01/20/19 09:41 Coreg PO Not Given BID NORA Dextrose 50 ml 01/15/19 19:31 D50w (25gm) Syringe IV PRN PRN Hypoglycemia Fludrocortisone Acetate 0.1 mg 01/16/19 16:00 01/20/19 09:42 Florinef PO 0.1 mg QDAY NORA Administration Heparin Sodium (Porcine) 5,000 unit 01/15/19 22:00 01/20/19 09:43 Heparin SUB-Q 5,000 unit Q12HR NORA Administration Cefepime HCl 2 gm in 100 mls @ 200 mls/hr 01/17/19 10:00 01/20/19 09:39 Maxipime/Ns 2 Gm/100 Ml IV 200 mls/hr Q24HR NORA Administration Protocol Sodium Bicarbonate 150 meq/ 1,150 mls @ 75 mls/hr 01/19/19 17:00 01/20/19 10:40 Dextrose IV 75 mls/hr DIRECT NORA Administration Insulin Human Regular 0 units 01/15/19 22:00 01/20/19 09:42 Humulin R SUB-Q Not Given Q4HR NORA Protocol Levetiracetam 500 mg 01/15/19 22:00 01/20/19 09:40 Keppra PO 500 mg Q12HR NORA Administration Ondansetron HCl 4 mg 01/15/19 21:06 Zofran IV Q6H PRN Nausea And Vomiting Simple Syrup 15 ml 01/17/19 14:21 Simple Syrup FEEDTUBE PRN PRN Hypoglycemia Simple Syrup 30 ml 01/17/19 14:21 Simple Syrup FEEDTUBE PRN PRN Hypoglycemia Sodium Bicarbonate 325 mg 01/17/19 14:21 01/17/19 22:43 Sodium Bicarbonate FEEDTUBE 325 mg PRN PRN Administration For Clogged Feeding Tube Sodium Chloride 10 ml 01/15/19 22:00 01/20/19 09:42 Sodium Chloride Flush Syringe 10 Ml IV 10 ml BID NORA Administration Sodium Chloride 10 ml 01/15/19 21:06 Sodium Chloride Flush Syringe 10 Ml IV PRN PRN LINE FLUSH Tamsulosin HCl 0.4 mg 01/16/19 10:00 01/20/19 09:39 Flomax PO 0.4 mg QDAY NORA Administration Nutrition/Malnutrition Assess - Dietary Evaluation Nutrition/Malnutrition Findings: Nutrition Notes Start: 01/16/19 14:38 Freq: Status: Active Protocol: Document 01/19/19 13:11 RM (Rec: 01/19/19 13:19 RM [id number]) Nutrition Notes Initial or Follow up Reassessment Current Diagnosis Acute Kidney Injury,COPD, Coronary Artery Disease, Diabetes,Sepsis,Hypertension, Heart Failure Other Pertinent Diagnosis Hx CVA, Sacral PU, UTI, Dementia, Hx seizure disorder, PEG Current Diet Nepro at 40 ml/hr Labs/Tests Na 151 K 4.3 BUN 106 Creat 4.1 Pertinent Medications Cefepime HCl Height 5 ft 7 in Weight 66.8 kg [place] Body Weight (kg) 67.27 BMI 23.1 Subjective/Other Information Earlier today nurse stated that TF was turned off d/t pt having diarrhea at goal rate and requested TF formula change to address diarrhea. Nurse later informed sheet writer that requested that Nepro be resumed. Burn Absent Trauma Absent #1 Nutrition Diagnosis Inadequate oral intake Diagnosis Progress(for reassessment Continues documentation) Is patient on ventilator? No Is Patient Ambulatory and/or Out of Bed No REE-([facility]-confined to bed) [phone] Calculation Used for Recommendations [facility] Additional Notes Protein Needs: 97-110g (1.5-1. 7g/kg) Fluid Needs: 1 ml/kcal Nutrition Intervention Nutrition Support: Nepro at 40 ml/hr. Water flush 250 mls q 4 hrs until hypernatremia resolves. Water flush of 150 mls q 4 hrs once hypernatremia resolves. Kcal 1,728 Protein (gm) 78 Fluid (mL) 698 Add Supplement/Snack (indicate name/kcal Was not previously ordered. /protein ) Hold off ordering until diarrhea resolves. Goal #1 TF tolerance Goal #2 Meet at least 75% of calorie and protein needs via TF Anticipated Discharge Needs: TF Follow-Up By: 01/21/19 Additional Comments Follow for TF tolerance, renal labs
[2019-01-20] MEDS ORDERED: POTASSIUM CHLORIDE FEEDTUBE ONE (15:00)
--- NOTE | 2019-01-20 16:39 | Progress Note ---
Assessment and Plan - Patient Problems (1) Acute anemia Current Visit: No Status: Acute Plan to address problem: Acute worsening anemia Hemoglobin 7.7 s/p Prbc transfusion Trend CBC Blood transfusion if indicated and hemoglobin worsens (2) Acute hypernatremia Current Visit: No Status: Acute Plan to address problem: Acute hypernatremia:resolved. Received 3 L of saline in the emergency room with worsening hypernatremia Received alternating D5W and half normal saline Can stop half normal saline Trend BMP. (3) Acute kidney injury Current Visit: No Status: Acute Plan to address problem: Acute kidney injury Received normal saline in the emergency room Did not receive maintenance fluids 0.45% saline was ordered on 01/16 and stopped by primary team due to concern for dyspnea however at my evaluation he appeared stable Discussed with primary team on 01/16 to ensure IVF unless patient decompensating given worsening renal function. Received a fluid bolus on 01/16 received half normal saline given hypernatremia and acute kidney injury I reviewed renal ultrasound without hydronephrosis creatinine improved from 4.1 to 3.7--3.8 Currently on bicarb infusion @ 75cc/hr given worsening acidosis. Discussed with family would not proceed with dialysis if his renal function continues to worsen given his significant comorbidities Patient remains oliguric Given worsening edema we'll give a dose of diuretic Bumex 1 mg IV and observe response (4) Metabolic acidosis Current Visit: Yes Status: Acute Plan to address problem: Metabolic Acidosis - 2/2 kerry Stop Saline infusion Received Bicarb infusion @ 75cc/hr. Subjective Principal diagnosis: sepsis bladder outlet obst Interval history: 68-year-old gentleman with medical history significant for hypertension, diabetes mellitus type 2, CVA, contractures admitted with hyperkalemia and worsening renal function Patient seen today He is more awake today Family at bedside daughter was at bedside and extensive discussion with the patient's daughter regarding his prognosis she is understanding of his comorbidities and agrees that they do not want dialysis if his kidney function worsens Objective - Vital Signs Vital signs: Vital Signs - 12hr 01/20/19 01/20/19 01/20/19 05:39 05:41 08:53 Temperature 98.4 F 97.5 F L Pulse Rate 72 Respiratory 20 24 Rate Blood Pressure 122/69 Blood Pressure [Right] O2 Sat by Pulse 100 Oximetry 01/20/19 01/20/19 01/20/19 08:55 09:41 10:00 Temperature 97.5 F L Pulse Rate 82 67 Respiratory 24 Rate Blood Pressure 103/61 Blood Pressure 113/57 [Right] O2 Sat by Pulse 97 96 Oximetry 01/20/19 01/20/19 11:00 11:53 Temperature 98.5 F Pulse Rate 66 85 Respiratory 24 Rate Blood Pressure 94/53 Blood Pressure [Right] O2 Sat by Pulse 97 Oximetry - General Appearance General appearance: chronically ill, frail EENT: ATNC, PERRL, mucous membranes moist Neck: no JVD Respiratory: Present: Decreased Breath Sounds Cardiology: regular, S1S2 Gastrointestinal: normal, normoactive bowel sounds Integumentary: no rash Neurologic: CN 3-12 intact Musculoskeletal: deferred Psychiatric: mood/affect appropriate - Lab 01/19/19 Unknown 01/20/19 05:50 Most recent lab results ABG pH 7.468 pH Units (7.350-7.450) H 01/16/19 09:50 ABG pCO2 29.8 mm Hg 01/16/19 09:50 ABG pO2 86.7 mm Hg (80.0-90.0) 01/16/19 09:50 ABG HCO3 21.1 mmol/L (20.0-26.0) 01/16/19 09:50 ABG O2 Saturation 97.3 % (95.0-99.0) 01/16/19 09:50 Calcium 8.4 mg/dL (8.4-10.2) 01/20/19 05:50 Magnesium 2.10 mg/dL (1.7-2.3) 01/20/19 05:50 49.5 mg/dL (0.1-20.0) H 01/16/19 Unknown 56 mmol/L 01/16/19 Unknown 181 mg/dL (5-11.8) H 01/16/19 Unknown - Imaging Chest x-ray: image reviewed (review chest x-ray left lower opacity noted) Medications & Allergies - Medications Allergies/Adverse Reactions: Allergies lisinopril Allergy (Verified 10/01/18 15:17) Unknown tramadol Allergy (Verified 07/29/18 18:39) Unknown Home Medications: Home Medications Medication Instructions Recorded Confirmed Last Taken Type Multivit-Min/Iron Fum/Folic AC 1 each PO DAILY 03/24/18 01/19/19 12/29/18 History [Keinc-Mmzbrey-Ndxfjptj Tablet] Acetaminophen 650 mg NGTUBE Q6H PRN 07/30/18 01/19/19 12/29/18 History Ipratropium/Albuterol Sulfate 1 ampul IH BID 07/30/18 01/19/19 12/29/18 History [DUONEB *Not for PRN Use*] Tamsulosin [Flomax] 0.4 mg PO QDAY 07/30/18 01/19/19 01/19/19 10:00 History Vit C/Ascorbate Calcium,Sodium 500 mg NGTUBE BID 07/30/18 01/19/19 12/29/18 History [Vitamin C 500 mg/15 ml Liquid] Zinc Sulfate 220 mg NGTUBE QDAY 07/30/18 01/19/19 12/29/18 History levETIRAcetam [Keppra INJ] 500 mg PO Q12H 07/30/18 01/19/19 01/19/19 13:55 History Phosphorus #1 [K-Phos Neutral] 250 mg PO QID #30 tablet 08/23/18 01/19/19 12/29/18 Rx AtorvaSTATin [Lipitor] 40 mg NGTUBE QHS #30 tablet 10/21/18 01/19/19 12/29/18 Rx Insulin Aspart [NovoLOG 100 0 unit SQ AC 11/01/18 01/19/19 12/29/18 History UNITS/ML VIAL] ALBUTEROL NEB's [Proventil 0.083% 2.5 mg IH Q3HRT PRN nebu 12/27/18 01/19/19 12/29/18 Rx NEBS] Carvedilol [Coreg] 6.25 mg PO BID tablet 12/27/18 01/19/19 12/29/18 Rx Cefuroxime Axetil [Ceftin] 500 mg PO Q12H #140 ml 01/02/19 01/19/19 Unknown Rx Active Medications: Generic Name Dose Route Start Last Admin Trade Name Freq PRN Reason Stop Dose Admin Acetaminophen 650 mg 01/15/19 21:06 01/20/19 10:43 Tylenol PO 650 mg Q4H PRN Administration Pain MILD(1-3)/Fever >100.5/PRICE Albuterol 2.5 mg 01/15/19 21:28 Proventil IH Q4HRT PRN Shortness Of Breath Lipase/Protease/Amylase 1 each 01/17/19 14:21 Pancrenomi [place] 10,500 Unit FEEDTUBE PRN PRN For Clogged Feeding Tube Carvedilol 6.25 mg 01/15/19 22:00 01/20/19 09:41 Coreg PO Not Given BID NORA Dextrose 50 ml 01/15/19 19:31 D50w (25gm) Syringe IV PRN PRN Hypoglycemia Fludrocortisone Acetate 0.1 mg 01/16/19 16:00 01/20/19 09:42 Florinef PO 0.1 mg QDAY NORA Administration Heparin Sodium (Porcine) 5,000 unit 01/15/19 22:00 01/20/19 09:43 Heparin SUB-Q 5,000 unit Q12HR NORA Administration Cefepime HCl 2 gm in 100 mls @ 200 mls/hr 01/17/19 10:00 01/20/19 09:39 Maxipime/Ns 2 Gm/100 Ml IV 200 mls/hr Q24HR NORA Administration Protocol Sodium Bicarbonate 150 meq/ 1,150 mls @ 75 mls/hr 01/19/19 17:00 01/20/19 10:40 Dextrose IV 75 mls/hr DIRECT NORA Administration Insulin Human Regular 0 units 01/15/19 22:00 01/20/19 09:42 Humulin R SUB-Q Not Given Q4HR [facility] Protocol Levetiracetam 500 mg 01/15/19 22:00 01/20/19 09:40 Keppra PO 500 mg Q12HR NORA Administration Ondansetron HCl 4 mg 01/15/19 21:06 Zofran IV Q6H PRN Nausea And Vomiting Simple Syrup 15 ml 01/17/19 14:21 Simple Syrup FEEDTUBE PRN PRN Hypoglycemia Simple Syrup 30 ml 01/17/19 14:21 Simple Syrup FEEDTUBE PRN PRN Hypoglycemia Sodium Bicarbonate 325 mg 01/17/19 14:21 01/17/19 22:43 Sodium Bicarbonate FEEDTUBE 325 mg PRN PRN Administration For Clogged Feeding Tube Sodium Chloride 10 ml 01/15/19 22:00 01/20/19 09:42 Sodium Chloride Flush Syringe 10 Ml IV 10 ml BID NORA Administration Sodium Chloride 10 ml 01/15/19 21:06 Sodium Chloride Flush Syringe 10 Ml IV PRN PRN LINE FLUSH Tamsulosin HCl 0.4 mg 01/16/19 10:00 01/20/19 09:39 Flomax PO 0.4 mg QDAY NORA Administration
--- NOTE | 2019-01-20 16:48 | Progress Note ---
Assessment and Plan - Patient Problems (1) Dilated cardiomyopathy Current Visit: Yes Status: Acute Plan to address problem: Patient is not a candidate for aggressive cardiac therapies, continued conservative management with guidelines directed medical therapy as tolerated. (2) Nonsustained ventricular tachycardia Current Visit: Yes Status: Acute Plan to address problem: Recommend optimize electrolyte imbalance, and we will advance beta chandan therapy as tolerated. Otherwise, conservative cardiac management. Subjective Date of service: 01/20/19 Principal diagnosis: sepsis bladder outlet obst Interval history: Patient is frail, cachectic, chronically ill appearing. On telemetry, he has intermittent short bursts of 4-6 beats nonsustained VT. Objective Vital Signs Temp Pulse Resp BP BP Pulse Ox 01/20/19 11:53 98.5 F 85 24 94/53 97 01/20/19 11:00 66 01/20/19 10:00 96 01/20/19 09:41 67 103/61 01/20/19 08:55 97.5 F L 82 24 113/57 97 01/20/19 08:53 97.5 F L 24 01/20/19 05:41 98.4 F 01/20/19 05:39 72 20 122/69 100 01/20/19 03:56 59 L 01/19/19 23:04 98.3 F 01/19/19 23:02 86 20 105/53 99 01/19/19 22:46 87 115/62 01/19/19 22:00 97 01/19/19 20:37 98.3 F 84 20 115/62 100 01/19/19 19:22 79 01/19/19 17:12 65 01/19/19 16:51 97.4 F L 71 16 115/63 100 - Physical Examination General: No Apparent Distress, Cachectic HEENT: Positive: PERRL Neck: Positive: neck supple Cardiac: Positive: Reg Rate and Rhythm Lungs: Positive: Decreased Breath Sounds Neuro: Positive: Weakness Abdomen: Positive: Soft Skin: Positive: Clear Extremities: Absent: edema - Labs and Meds Comprehensive Metabolic Panel 01/20/19 Range/Units 05:50 Sodium 142 (137-145) mmol/L Potassium 3.5 L (3.6-5.0) mmol/L Chloride 104.4 (98-107) mmol/L Carbon Dioxide 19 L (22-30) mmol/L BUN 99 H (9-20) mg/dL Creatinine 3.8 H (0.8-1.5) mg/dL Glucose 120 H (75-100) mg/dL Calcium 8.4 (8.4-10.2) mg/dL
--- NOTE | 2019-01-20 16:53 | XRay Report ---
CHEST 1 VIEW INDICATION / CLINICAL INFORMATION: Chest pain COMPARISON: None available. FINDINGS: SUPPORT DEVICES: None. HEART / MEDIASTINUM: No significant abnormality. LUNGS / PLEURA: The left hemithorax is not well visualized secondary to the patient's skull. The righ t lung demonstrates increasing airspace densities. Signer Name: Ned Acosta MD Signed: 01/20/2019 4:49 PM Workstation Name: [id number]
[2019-01-20] MEDS: BUMEX IV ONE ×2 (20:08→20:10)
[2019-01-21] MEDS: SODIUM BICARBONATE 150 MEQ in D5W 1,000 ML IV SCH ×2 (00:34→22:39)
[2019-01-21] MEDS: HumuLIN R SUB-Q SCH ×3 (05:35→19:15)
--- NOTE | 2019-01-21 10:07 | Progress Note ---
Assessment and Plan Cultures: 01/15 BCx - no growth Urine Cx - mixed >2 organisms A/P: 68 yo M PMHx HTN, CVA, CHF, BPH, contractures, sacral pressure ulcer, b/l LE pressure ulcer, CAD, DM2, COPD, dementia admitted with UTI 1. Sepsis secondary to UTI - Resolved. Urinalysis with significant pyuria. Urine culture mixed . 2 organisms. Surprisingly, his most recent positive urine culture was in May with Pseudomonas despite recurrently positive blood c ultures. In light of this, will change ceftriaxone to cefepime pending urine and blood cultures. Would not be surprised if blood cultures are again positive. 2. Chronic sacral pressure ulcer - seen in room when wound care was dressing. No obvious purulence or change. Wouldn't recommend treating at this point unless symptoms change. Unless new purulent discharge is observed would avoid culturing in order to avoid complicating picture with colonizers. 3. chronic b/l LE pressure ulcers 4. HTN 5. CVA 6. CHF 7. CAD 8. DM2 9. COPD 10. Dementia Recs: - Continue Cefepime 2g q24h for 7 days. ( stop date: 01/23/19) Jacquie Jean Baptiste NP [facility] M: [phone] O:[phone] Subjective Date of service: 01/21/19 Principal diagnosis: sepsis bladder outlet obst Interval history: Patient seen and examined. Mostly non-verbal today. No acute distress observed. No fevers. Objective - Exam Narrative Exam: Constitutional: Awake. Alert. Non-verbal today. No acute distress observed Head, Ears, Nose: Normocephalic, atraumatic. External ears, nose normal Eyes: Conjunctivae/corneas clear. No icterus. No ptosis. Neck: Supple, no meningeal signs Oral: dentition fair, no thrush Cardiovascular: S1, S2 normal. Respiratory: Good air entry, clear to auscultation bilaterally GI: Soft, non-tender; bowel sounds normal. No peritoneal signs. : Chaudhary in place Musculoskeletal: No pedal edema, no cyanosis. Skin: No rash or abscess Hem/Lymphatic: No palpable cervical or supraclavicular nodes. No lymphangitis Neurological: Awake. Not following commands. - Constitutional Vitals: Vital Signs Temp Pulse Resp BP Pulse Ox 98.2 F 68 20 136/66 95 01/21/19 04:29 01/21/19 04:28 01/21/19 04:28 01/21/19 04:28 01/21/19 04:28 Temperature -Last 24 Hours Temperature 98.2 F Temperature 97.7 F Temperature 97.6 F Temperature 98.1 F Temperature 98.5 F - Labs CBC & Chem 7: 01/19/19 Unknown 01/21/19 12:19 Labs: Abnormal lab results 01/20/19 01/20/19 01/20/19 Range/Units 11:49 17:38 22:17 POC Glucose 137 H 157 H 167 H (70-105) 01/21/19 01/21/19 Range/Units 05:41 05:55 POC Glucose 143 H 133 H (70-105)
[2019-01-21] MEDS: KEPPRA PO SCH ×2 (10:14→22:41)
[2019-01-21] MEDS: FLOMAX PO SCH (10:14)
[2019-01-21] MEDS: HEPARIN SUB-Q SCH ×2 (10:21→22:41)
[2019-01-21] MEDS: MAXIPIME/NS 2 GM/100 ML 2 GM/100 ML BAG IV SCH (10:22)
[2019-01-21] MEDS: SODIUM CHLORIDE FLUSH SYRINGE 10 ML IV SCH ×2 (10:22→22:42)
[2019-01-21] MEDS: COREG PO SCH ×2 (10:24→22:41)
[2019-01-21] MEDS: FLORINEF PO SCH (10:25)
--- NOTE | 2019-01-21 10:56 | Progress Note ---
Assessment and Plan Sepsis Decubitus ulcer infections Recurrent UTI Severe Anemia Chronically elevated troponin Paroxysmal Afib previously considered not a candidate for oral anticoagulation LBBB, chronic Non-ischemic Cardiomyopathy EF 30-35% DIANA-i allergy Paroxysmal NSVT on telemetry it's reported the patient remained asymptomatic. Recommendations: Beta blockers as tolerated, for suppression of paroxysmal NSVT. Otherwise conservative cardiac approach to management. Subjective Date of service: 01/21/19 Principal diagnosis: sepsis bladder outlet obst Interval history: Short burst of NSVT seen on telemetry on this morning. Objective Vital Signs Temp Pulse Resp BP Pulse Ox 01/21/19 10:24 83 113/57 01/21/19 04:29 98.2 F 01/21/19 04:28 68 20 136/66 95 01/21/19 01:10 97.7 F 01/21/19 01:08 65 24 105/53 99 01/20/19 22:00 70 01/20/19 21:38 98 01/20/19 20:04 97.6 F 71 20 144/67 100 01/20/19 17:23 98.1 F 77 24 135/82 99 01/20/19 12:00 77 01/20/19 11:53 98.5 F 85 24 94/53 97 01/20/19 11:00 66 - Physical Examination General: No Apparent Distress, Cachectic HEENT: Positive: PERRL Cardiac: Positive: Reg Rate and Rhythm Skin: Positive: Clear Extremities: Absent: edema
--- NOTE | 2019-01-21 11:09 | Progress Note ---
Assessment and Plan Assessment and plan: Patient is a 68-year-old man who is a resident of [facility] with a plethora of severe co-morbidities including hypertension, CVA with residuals, contracture upper and lower extremities, sacral pressure ulcer/osteomyelitis, bilateral lower extremity pressure ulcer, CAD, DM, seizure, COPD, dementia UTI, MDR PSA related to sacral wound, dementia with contractures/quadriplegia, hypertension, combined CHF with EF 30-35%, seizure disorder, BPH with suspected functional bladder outlet obstruction with chronic indwelling bright (Bright changed 01/16/2019), recurrent UTIs, ARF, functional quadriplegia due to the dementia, prostate abscesses with lytic lesion and MRSA bacteremia s/p IV vancomycin who presents to [facility] ED for hyperkalemia found on labs from [place]. * pCXR no acute findings, Acute respiratory failure -ABG reviewed -consulted pulmonology -d/c iv fluids, considering iv lasix but sbp is low Sepsis -Likely secondary to urinary tract infection -Blood Cultures pending -On IV abx -Gentle hydration with IVF -ID consulted, input noted, change iv rocephin to cefepime -Continue to monitor UTI -Urine WBC >182 -Urine culture pending, -urine culture contaminated -Start on IV Abx -bright changed by Dr. Gabriel on 01/16/19 Hypotension -IVF but carefully with CHF history MÓNICA, vasomotor nephropathy, ATN -Cr on admission 3.6 with GFR 20 -Baseline around 1.0 -Avoid nephrotoxic agents -Renal dose all meds -Nephrology consulted AND INPUT NOTED. Await sign of plateau and improvement prior to discharge Hyperkalemia -now hypokalemia- replace -Received hyperkalemic cocktail in ED Hx BPH -Bright catheter -disContinue Flomax due to hypotension Hx Seizure disorder -continue Keppra Hypertension, now hypotensive -Continue to monitor BP -disContinue Coreg Hx of Pressure Ulcers -Sacral and BLE -Wound care consult pending DM 2 -POC BG monitoring -SSI coverage COPD -Albuterol prn Hx Dementia Hx CHF, EF 30-35% Hx CVA DVT PPX -stop Heparin acute on chronic anemia of chronic disease s/p 1 unit [facility], transfuse blood 01/17/19 monitor cbc closely Disposition: continue inpatient care, d/c back to [place] once renal clears History Interval history: Patient seen and examined, no change in clinical status, no adverse event reported overnight Hospitalist Physical - Physical exam Narrative exam: Gen: severely disable, contractured legs in position, neck flexed downward , ill appearing, moderated increase in accessory muscles, nonverbal HEENT: NCAT, EOMI, PERRL, OP Clear Neck: supple, no adenopathy, no thyromegaly, no JVD CVS/Heart: Reg tachycardia normal S1S2, pulses present bilaterally Chest/Lungs: tachypneic, CTA B, Symmetrical chest expansion, good air entry bilaterally GI/Abdomen: soft, NTND, good bowel sounds, no guarding or rebound /Bladder: no suprapubic tenderness, no CVA or paraspinal tenderness Neuro: CN 2-12 grossly intact, no new focal deficits Msk/skin: multiple pressure ulcer, sacrum, legs, feet, even elbows, stage 3 at least, atrophic limb x 4 Psych: nonverbal - Constitutional Vitals: Temp Pulse Resp BP Pulse Ox 98.2 F 83 20 113/57 95 01/21/19 04:29 01/21/19 10:24 01/21/19 04:28 01/21/19 10:24 01/21/19 04:28 General appearance: Present: no acute distress, cachectic Results - Labs CBC & Chem 7: 01/19/19 Unknown 01/22/19 05:18 Labs: Laboratory Last Values WBC 6.0 K/mm3 (4.5-11.0) 01/19/19 Unknown RBC 2.87 M/mm3 (3.65-5.03) L 01/19/19 Unknown Hgb 7.9 gm/dl (11.8-15.2) L 01/19/19 Unknown Hct 24.8 % (35.5-45.6) L 01/19/19 Unknown MCV 86 fl (84-94) 01/19/19 Unknown MCH 28 pg (28-32) 01/19/19 Unknown MCHC 32 % (32-34) 01/19/19 Unknown RDW 17.4 % (13.2-15.2) H 01/19/19 Unknown Plt Count 411 K/mm3 (140-440) 01/19/19 Unknown Lymph % (Auto) 11.2 % (13.4-35.0) L 01/19/19 Unknown [place] % (Auto) 8.8 % (0.0-7.3) H 01/19/19 Unknown Eos % (Auto) 4.5 % (0.0-4.3) H 01/19/19 Unknown Baso % (Auto) 0.9 % (0.0-1.8) 01/19/19 Unknown Lymph # 0.7 K/mm3 (1.2-5.4) L 01/19/19 Unknown [place] # 0.5 K/mm3 (0.0-0.8) 01/19/19 Unknown Eos # 0.3 K/mm3 (0.0-0.4) 01/19/19 Unknown Baso # 0.1 K/mm3 (0.0-0.1) 01/19/19 Unknown Add Manual Diff Complete 01/18/19 00:22 Total Counted 100 01/18/19 00:22 Seg Neutrophils % 74.6 % (40.0-70.0) H 01/19/19 Unknown Seg Neuts % (Manual) 76.0 % (40.0-70.0) H 01/18/19 00:22 0 % 01/18/19 00:22 12.0 % (13.4-35.0) L 01/18/19 00:22 Reactive Lymphs % (Man) 0 % 01/18/19 00:22 6.0 % (0.0-7.3) 01/18/19 00:22 5.0 % (0.0-4.3) H 01/18/19 00:22 1.0 % (0.0-1.8) 01/18/19 00:22 0 % 01/18/19 00:22 0 % 01/18/19 00:22 0 % 01/18/19 00:22 0 % 01/18/19 00:22 Nucleated RBC % Not Reportable 01/18/19 00:22 Seg Neutrophils # 4.5 K/mm3 (1.8-7.7) 01/19/19 Unknown Seg Neutrophils # Man 8.1 K/mm3 (1.8-7.7) H 01/18/19 00:22 Band Neutrophils # 0.0 K/mm3 01/18/19 00:22 1.3 K/mm3 (1.2-5.4) 01/18/19 00:22 Abs React Lymphs (Man) 0.0 K/mm3 01/18/19 00:22 0.6 K/mm3 (0.0-0.8) 01/18/19 00:22 0.5 K/mm3 (0.0-0.4) H 01/18/19 00:22 0.1 K/mm3 (0.0-0.1) 01/18/19 00:22 0.0 K/mm3 01/18/19 00:22 0.0 K/mm3 01/18/19 00:22 0.0 K/mm3 01/18/19 00:22 Blast Cells # 0.0 K/mm3 01/18/19 00:22 WBC Morphology Not Reportable 01/18/19 00:22 Hypersegmented Neuts Not Reportable 01/18/19 00:22 Hyposegmented Neuts Not Reportable 01/18/19 00:22 Hypogranular Neuts Not Reportable 01/18/19 00:22 Cancelled 01/16/19 10:40 Not Reportable 01/18/19 00:22 Not Reportable 01/18/19 00:22 Not Reportable 01/18/19 00:22 Not Reportable 01/18/19 00:22 Not Reportable 01/18/19 00:22 Not Reportable 01/18/19 00:22 Not Reportable 01/18/19 00:22 Not Reportable 01/18/19 00:22 Plt Clumps, EDTA Not Reportable 01/18/19 00:22 Not Reportable 01/18/19 00:22 Not Reportable 01/18/19 00:22 Not Reportable 01/18/19 00:22 Plt Morphology Comment Not Reportable 01/18/19 00:22 RBC Morphology Normal 01/18/19 00:22 Dimorphic RBCs Not Reportable 01/18/19 00:22 Not Reportable 01/18/19 00:22 Not Reportable 01/18/19 00:22 Not Reportable 01/18/19 00:22 Cancelled 01/16/19 10:40 Not Reportable 01/18/19 00:22 Not Reportable 01/18/19 00:22 Not Reportable 01/18/19 00:22 Not Reportable 01/18/19 00:22 Not Reportable 01/18/19 00:22 Not Reportable 01/18/19 00:22 Not Reportable 01/18/19 00:22 Not Reportable 01/18/19 00:22 Not Reportable 01/18/19 00:22 Cancelled 01/16/19 10:40 Not Reportable 01/18/19 00:22 Not Reportable 01/18/19 00:22 Not Reportable 01/18/19 00:22 Not Reportable 01/18/19 00:22 Not Reportable 01/18/19 00:22 Not Reportable 01/18/19 00:22 Not Reportable 01/18/19 00:22 Acanthocytes (Spur) Not Reportable 01/18/19 00:22 Rouleaux Not Reportable 01/18/19 00:22 Not Reportable 01/18/19 00:22 Not Reportable 01/18/19 00:22 Not Reportable 01/18/19 00:22 Not Reportable 01/18/19 00:22 Hem Pathologist Commnt No 01/18/19 00:22 PT 17.8 Sec. (12.2-14.9) H 01/15/19 19:16 INR 1.51 (0.87-1.13) H 01/15/19 19:16 APTT 50.6 Sec. (24.2-36.6) H 01/15/19 19:16 ABG pH 7.468 pH Units (7.350-7.450) H 01/16/19 09:50 ABG pCO2 29.8 mm Hg 01/16/19 09:50 ABG pO2 86.7 mm Hg (80.0-90.0) 01/16/19 09:50 ABG HCO3 21.1 mmol/L (20.0-26.0) 01/16/19 09:50 ABG O2 Saturation 97.3 % (95.0-99.0) 01/16/19 09:50 ABG O2 Content 11.2 (0.0-44) 01/16/19 09:50 ABG Base Excess -2.1 mmol/L (-2.0-3.0) L 01/16/19 09:50 ABG Hemoglobin 8.3 gm/dl (14.0-18.0) L 01/16/19 09:50 ABG Carboxyhemoglobin 1.9 % (0.0-5.0) 01/16/19 09:50 ABG Methemoglobin 0.5 % (0.0-1.5) 01/16/19 09:50 95.0 % (95.0-99.0) 01/16/19 09:50 28 % 01/16/19 09:50 Sodium 142 mmol/L (137-145) 01/20/19 05:50 Potassium 3.5 mmol/L (3.6-5.0) L 01/20/19 05:50 Chloride 104.4 mmol/L (98-107) 01/20/19 05:50 Carbon Dioxide 19 mmol/L (22-30) L 01/20/19 05:50 22 mmol/L 01/20/19 05:50 BUN 99 mg/dL (9-20) H 01/20/19 05:50 3.8 mg/dL (0.8-1.5) H 01/20/19 05:50 Estimated GFR 19 ml/min 01/20/19 05:50 26 % 01/20/19 05:50 Glucose 120 mg/dL (75-100) H 01/20/19 05:50 POC Glucose 133 (70-105) H 01/21/19 05:55 Lactic Acid 0.90 mmol/L (0.7-2.0) 01/17/19 09:27 7.3 mg/dL (3.5-7.6) 01/15/19 23:04 Calcium 8.4 mg/dL (8.4-10.2) 01/20/19 05:50 Magnesium 2.10 mg/dL (1.7-2.3) 01/20/19 05:50 160 units/L (55-170) 01/15/19 18:27 0.633 ng/mL (0.00-0.029) H* 01/17/19 11:26 Triglycerides 122 mg/dL (2-149) 01/17/19 06:15 Cholesterol 52 mg/dL (50-199) 01/17/19 06:15 11 mg/dL (50-130) L 01/17/19 06:15 19 mg/dL (40-59) L 01/17/19 06:15 2.73 % 01/17/19 06:15 Yellow (Yellow) 01/15/19 18:50 Cloudy (Clear) 01/15/19 18:50 8.0 (5.0-7.0) H 01/15/19 18:50 Ur Specific [place] 1.015 (1.003-1.030) 01/15/19 18:50 100 mg/dl mg/dL (Negative) 01/15/19 18:50 Neg mg/dL (Negative) 01/15/19 18:50 Neg mg/dL (Negative) 01/15/19 18:50 Sm (Negative) 01/15/19 18:50 Neg (Negative) 01/15/19 18:50 Neg (Negative) 01/15/19 18:50 < 2.0 mg/dL (<2.0) 01/15/19 18:50 Ur Leukocyte Esterase Lg (Negative) 01/15/19 18:50 > 182.0 /HPF (0.0-6.0) H 01/15/19 18:50 14.0 /HPF (0.0-6.0) 01/15/19 18:50 1+ /HPF (Negative) 01/15/19 18:50 3+ /HPF 01/15/19 18:50 Few /HPF 01/15/19 18:50 49.5 mg/dL (0.1-20.0) H 01/16/19 Unknown Protein/Creatinin Ratio 3.66 01/16/19 Unknown 56 mmol/L 01/16/19 Unknown 181 mg/dL (5-11.8) H 01/16/19 Unknown Blood Type O POSITIVE 01/17/19 06:53 Antibody Screen Negative 01/17/19 06:53 Crossmatch See Detail 01/17/19 06:53 Active Medications - Current Medications Current Medications: Generic Name Dose Route Start Last Admin Trade Name Freq PRN Reason Stop Dose Admin Acetaminophen 650 mg 01/15/19 21:06 01/20/19 10:43 Tylenol PO 650 mg Q4H PRN Administration Pain MILD(1-3)/Fever >100.5/PRICE Albuterol 2.5 mg 01/15/19 21:28 Proventil IH Q4HRT PRN Shortness Of Breath Lipase/Protease/Amylase 1 each 01/17/19 14:[address] 10,500 Unit FEEDTUBE PRN PRN For Clogged Feeding Tube Carvedilol 12.5 mg 01/20/19 22:00 01/21/19 10:24 Coreg PO Not Given BID NORA Dextrose 50 ml 01/15/19 19:31 D50w (25gm) Syringe IV PRN PRN Hypoglycemia Fludrocortisone Acetate 0.1 mg 01/16/19 16:00 01/21/19 10:25 Florinef PO 0.1 mg QDAY NORA Administration Heparin Sodium (Porcine) 5,000 unit 01/15/19 22:00 01/21/19 10:21 Heparin SUB-Q 5,000 unit Q12HR NORA Administration Cefepime HCl 2 gm in 100 mls @ 200 mls/hr 01/17/19 10:00 01/21/19 10:22 Maxipime/Ns 2 Gm/100 Ml IV 01/23/19 23:59 200 mls/hr Q24HR NORA Administration Protocol Sodium Bicarbonate 150 meq/ 1,150 mls @ 75 mls/hr 01/19/19 17:00 01/21/19 00:34 Dextrose IV 75 mls/hr DIRECT NORA Administration Insulin Human Regular 0 units 01/21/19 00:00 01/21/19 05:35 Humulin R SUB-Q Not Given Q6HR [facility] Protocol Levetiracetam 500 mg 01/15/19 22:00 01/21/19 10:14 Keppra PO 500 mg Q12HR NORA Administration Ondansetron HCl 4 mg 01/15/19 21:06 Zofran IV Q6H PRN Nausea And Vomiting Simple Syrup 15 ml 01/17/19 14:21 Simple Syrup FEEDTUBE PRN PRN Hypoglycemia Simple Syrup 30 ml 01/17/19 14:21 Simple Syrup FEEDTUBE PRN PRN Hypoglycemia Sodium Bicarbonate 325 mg 01/17/19 14:21 01/17/19 22:43 Sodium Bicarbonate FEEDTUBE 325 mg PRN PRN Administration For Clogged Feeding Tube Sodium Chloride 10 ml 01/15/19 22:00 01/21/19 10:22 Sodium Chloride Flush Syringe 10 Ml IV 10 ml BID NORA Administration Sodium Chloride 10 ml 01/15/19 21:06 Sodium Chloride Flush Syringe 10 Ml IV PRN PRN LINE FLUSH Tamsulosin HCl 0.4 mg 01/16/19 10:00 01/21/19 10:14 Flomax PO 0.4 mg QDAY NORA Administration Nutrition/Malnutrition Assess - Dietary Evaluation Nutrition/Malnutrition Findings: Nutrition Notes Start: 01/16/19 14:38 Freq: Status: Active Protocol: Document 01/19/19 13:11 RM (Rec: 01/19/19 13:19 RM [id number]) Nutrition Notes Initial or Follow up Reassessment Current Diagnosis Acute Kidney Injury,COPD, Coronary Artery Disease, Diabetes,Sepsis,Hypertension, Heart Failure Other Pertinent Diagnosis Hx CVA, Sacral PU, UTI, Dementia, Hx seizure disorder, PEG Current Diet Nepro at 40 ml/hr Labs/Tests Na 151 K 4.3 BUN 106 Creat 4.1 Pertinent Medications Cefepime HCl Height 5 ft 7 in Weight 66.8 kg [place] Body Weight (kg) 67.27 BMI 23.1 Subjective/Other Information Earlier today nurse stated that TF was turned off d/t pt having diarrhea at goal rate and requested TF formula change to address diarrhea. Nurse later informed story writer that MD requested that Nepro be resumed. Burn Absent Trauma Absent #1 Nutrition Diagnosis Inadequate oral intake Diagnosis Progress(for reassessment Continues documentation) Is patient on ventilator? No Is Patient Ambulatory and/or Out of Bed No REE-([place]-St. Jeor-confined to bed) 7040.865 Calculation Used for Recommendations [facility] Additional Notes Protein Needs: 97-110g (1.5-1. 7g/kg) Fluid Needs: 1 ml/kcal Nutrition Intervention Nutrition Support: Nepro at 40 ml/hr. Water flush 250 mls q 4 hrs until hypernatremia resolves. Water flush of 150 mls q 4 hrs once hypernatremia resolves. Kcal 1,728 Protein (gm) 78 Fluid (mL) 698 Add Supplement/Snack (indicate name/kcal Was not previously ordered. /protein ) Hold off ordering until diarrhea resolves. Goal #1 TF tolerance Goal #2 Meet at least 75% of calorie and protein needs via TF Anticipated Discharge Needs: TF Follow-Up By: 01/21/19 Additional Comments Follow for TF tolerance, renal labs
--- NOTE | 2019-01-21 11:47 | Progress Note ---
Assessment and Plan Impression * Oliguric acute kidney injury secondary to prerenal azotemia --SCr 0.8mg/dL in Feb 2018 * Sepsis secondary to UTI * Hyperkalemia * Metabolic acidosis * Anemia * Dementia * History of seizure disorder * History of BPH Recommendations * AM labs are pending * Renal function gradually improved since admission. No acute indication for re nal replacement therapy at this time * Continue conservative management for now * Strict I/O * Abx per primary team * Avoid nephrotoxins * Monitor fluid status and electrolytes closely Subjective Date of service: 01/21/19 Principal diagnosis: sepsis bladder outlet obst Interval history: Patient without acute events overnight. Objective - Vital Signs Vital signs: Vital Signs - 12hr 01/21/19 01/21/19 01/21/19 01:08 01:10 04:28 Temperature 97.7 F Pulse Rate 65 68 Respiratory 24 20 Rate Blood Pressure 105/53 136/66 O2 Sat by Pulse 99 95 Oximetry 01/21/19 01/21/19 04:29 10:24 Temperature 98.2 F Pulse Rate 83 Respiratory Rate Blood Pressure 113/57 O2 Sat by Pulse Oximetry - General Appearance General appearance: well-developed EENT: ATNC Respiratory: Present: Decreased Breath Sounds Cardiology: regular, S1S2 Gastrointestinal: normal, no tenderness, no distended Integumentary: warm and dry Neurologic: other (nonverbal) Psychiatric: cooperative - Lab 01/19/19 Unknown 01/20/19 05:50 Most recent lab results ABG pH 7.468 pH Units (7.350-7.450) H 01/16/19 09:50 ABG pCO2 29.8 mm Hg 01/16/19 09:50 ABG pO2 86.7 mm Hg (80.0-90.0) 01/16/19 09:50 ABG HCO3 21.1 mmol/L (20.0-26.0) 01/16/19 09:50 ABG O2 Saturation 97.3 % (95.0-99.0) 01/16/19 09:50 Calcium 8.4 mg/dL (8.4-10.2) 01/20/19 05:50 Magnesium 2.10 mg/dL (1.7-2.3) 01/20/19 05:50 49.5 mg/dL (0.1-20.0) H 01/16/19 Unknown 56 mmol/L 01/16/19 Unknown 181 mg/dL (5-11.8) H 01/16/19 Unknown Medications & Allergies - Medications Allergies/Adverse Reactions: Allergies lisinopril Allergy (Verified 10/01/18 15:17) Unknown tramadol Allergy (Verified 07/29/18 18:39) Unknown Home Medications: Home Medications Medication Instructions Recorded Confirmed Last Taken Type Multivit-Min/Iron Fum/Folic AC 1 each PO DAILY 03/24/18 01/19/19 12/29/18 History [Ypiie-Yrdjvex-Ylgspazk Tablet] Acetaminophen 650 mg NGTUBE Q6H PRN 07/30/18 01/19/19 12/29/18 History Ipratropium/Albuterol Sulfate 1 ampul IH BID 07/30/18 01/19/19 12/29/18 History [DUONEB *Not for PRN Use*] Tamsulosin [Flomax] 0.4 mg PO QDAY 07/30/18 01/19/19 01/19/19 10:00 History Vit C/Ascorbate Calcium,Sodium 500 mg NGTUBE BID 07/30/18 01/19/19 12/29/18 History [Vitamin C 500 mg/15 ml Liquid] Zinc Sulfate 220 mg NGTUBE QDAY 07/30/18 01/19/19 12/29/18 History levETIRAcetam [Keppra INJ] 500 mg PO Q12H 07/30/18 01/19/19 01/19/19 13:55 History Phosphorus #1 [K-Phos Neutral] 250 mg PO QID #30 tablet 08/23/18 01/19/19 12/29/18 Rx AtorvaSTATin [Lipitor] 40 mg NGTUBE QHS #30 tablet 10/21/18 01/19/19 12/29/18 Rx Insulin Aspart [NovoLOG 100 0 unit SQ AC 11/01/18 01/19/19 12/29/18 History UNITS/ML VIAL] ALBUTEROL NEB's [Proventil 0.083% 2.5 mg IH Q3HRT PRN nebu 12/27/18 01/19/19 12/29/18 Rx NEBS] Carvedilol [Coreg] 6.25 mg PO BID tablet 12/27/18 01/19/19 12/29/18 Rx Cefuroxime Axetil [Ceftin] 500 mg PO Q12H #140 ml 01/02/19 01/19/19 Unknown Rx Active Medications: Generic Name Dose Route Start Last Admin Trade Name Freq PRN Reason Stop Dose Admin Acetaminophen 650 mg 01/15/19 21:06 01/20/19 10:43 Tylenol PO 650 mg Q4H PRN Administration Pain MILD(1-3)/Fever >100.5/PRICE Albuterol 2.5 mg 01/15/19 21:28 Proventil IH Q4HRT PRN Shortness Of Breath Lipase/Protease/Amylase 1 each 01/17/19 14:21 Pancreaze 10,500 Unit FEEDTUBE PRN PRN For Clogged Feeding Tube Carvedilol 12.5 mg 01/20/19 22:00 01/21/19 10:24 Coreg PO Not Given BID NORA Dextrose 50 ml 01/15/19 19:31 D50w (25gm) Syringe IV PRN PRN Hypoglycemia Fludrocortisone Acetate 0.1 mg 01/16/19 16:00 01/21/19 10:25 Florinef PO 0.1 mg QDAY NORA Administration Heparin Sodium (Porcine) 5,000 unit 01/15/19 22:00 01/21/19 10:21 Heparin SUB-Q 5,000 unit Q12HR NORA Administration Cefepime HCl 2 gm in 100 mls @ 200 mls/hr 01/17/19 10:00 01/21/19 10:22 Maxipime/Ns 2 Gm/100 Ml IV 01/23/19 23:59 200 mls/hr Q24HR NORA Administration Protocol Sodium Bicarbonate 150 meq/ 1,150 mls @ 75 mls/hr 01/19/19 17:00 01/21/19 00:34 Dextrose IV 75 mls/hr DIRECT NORA Administration Insulin Human Regular 0 units 01/21/19 00:00 01/21/19 05:35 Humulin R SUB-Q Not Given Q6HR NORA Protocol Levetiracetam 500 mg 01/15/19 22:00 01/21/19 10:14 Keppra PO 500 mg Q12HR NORA Administration Ondansetron HCl 4 mg 01/15/19 21:06 Zofran IV Q6H PRN Nausea And Vomiting Simple Syrup 15 ml 01/17/19 14:21 Simple Syrup FEEDTUBE PRN PRN Hypoglycemia Simple Syrup 30 ml 01/17/19 14:21 Simple Syrup FEEDTUBE PRN PRN Hypoglycemia Sodium Bicarbonate 325 mg 01/17/19 14:21 01/17/19 22:43 Sodium Bicarbonate FEEDTUBE 325 mg PRN PRN Administration For Clogged Feeding Tube Sodium Chloride 10 ml 01/15/19 22:00 01/21/19 10:22 Sodium Chloride Flush Syringe 10 Ml IV 10 ml BID NORA Administration Sodium Chloride 10 ml 01/15/19 21:06 Sodium Chloride Flush Syringe 10 Ml IV PRN PRN LINE FLUSH Tamsulosin HCl 0.4 mg 01/16/19 10:00 01/21/19 10:14 Flomax PO 0.4 mg QDAY NORA Administration
[2019-01-21 13:02] LABS: Calcium 8.3 mg/dL (8.4-10.2)
[2019-01-22] MEDS: TYLENOL PO PRN (00:52)
[2019-01-22] MEDS: HumuLIN R SUB-Q SCH ×4 (01:00→18:56)
[2019-01-22 06:09] LABS: Calcium 8.2 mg/dL (8.4-10.2)
[2019-01-22] MEDS ORDERED: POTASSIUM CHLORIDE FEEDTUBE ONE (06:56)
[2019-01-22] MEDS ORDERED: POTASSIUM CHLORIDE FEEDTUBE NR ×2 (07:30→08:00)
--- NOTE | 2019-01-22 10:31 | Progress Note ---
Assessment and Plan Impression * Oliguric acute kidney injury secondary to prerenal azotemia --SCr 0.8mg/dL in Feb 2018 * Sepsis secondary to UTI * Hyperkalemia * Metabolic acidosis * Anemia * Dementia * History of seizure disorder * History of BPH Recommendations * Renal function gradually improved since admission. No acute indication for renal replacement therapy at this time * Continue conservative management for now * Strict I/O * Abx per primary team * Avoid nephrotoxins * Monitor fluid status and electrolytes closely Subjective Date of service: 01/22/19 Principal diagnosis: sepsis bladder outlet obst Interval history: No acute events overnight. Objective - Vital Signs Vital signs: Vital Signs - 12hr 01/21/19 01/21/19 01/21/19 22:41 22:45 23:51 Temperature Pulse Rate 84 70 Pulse Rate [ 84 Apical] Respiratory 18 20 Rate Blood Pressure 130/58 112/54 O2 Sat by Pulse 96 99 Oximetry 01/21/19 01/22/19 01/22/19 23:52 00:52 01:52 Temperature 98.3 F Pulse Rate Pulse Rate [ Apical] Respiratory 18 18 Rate Blood Pressure O2 Sat by Pulse Oximetry 01/22/19 01/22/19 06:29 06:30 Temperature 97.8 F Pulse Rate 62 Pulse Rate [ Apical] Respiratory 20 Rate Blood Pressure 135/60 O2 Sat by Pulse 99 Oximetry - General Appearance General appearance: chronically ill EENT: ATNC Respiratory: Present: Clear to Ascultation Cardiology: regular, S1S2 Gastrointestinal: normal, no tenderness, no distended, other (PEG) Integumentary: warm and dry Psychiatric: other (nonverbal) - Lab 01/19/19 Unknown 01/22/19 05:18 Most recent lab results ABG pH 7.468 pH Units (7.350-7.450) H 01/16/19 09:50 ABG pCO2 29.8 mm Hg 01/16/19 09:50 ABG pO2 86.7 mm Hg (80.0-90.0) 01/16/19 09:50 ABG HCO3 21.1 mmol/L (20.0-26.0) 01/16/19 09:50 ABG O2 Saturation 97.3 % (95.0-99.0) 01/16/19 09:50 Calcium 8.2 mg/dL (8.4-10.2) L 01/22/19 05:18 Magnesium 2.10 mg/dL (1.7-2.3) 01/20/19 05:50 49.5 mg/dL (0.1-20.0) H 01/16/19 Unknown 56 mmol/L 01/16/19 Unknown 181 mg/dL (5-11.8) H 01/16/19 Unknown Medications & Allergies - Medications Allergies/Adverse Reactions: Allergies lisinopril Allergy (Verified 10/01/18 15:17) Unknown tramadol Allergy (Verified 07/29/18 18:39) Unknown Home Medications: Home Medications Medication Instructions Recorded Confirmed Last Taken Type Multivit-Min/Iron Fum/Folic AC 1 each PO DAILY 03/24/18 01/19/19 12/29/18 History [Ahjsb-Qzwlmbh-Fqsnplov Tablet] Acetaminophen 650 mg NGTUBE Q6H PRN 07/30/18 01/19/19 12/29/18 History Ipratropium/Albuterol Sulfate 1 ampul IH BID 07/30/18 01/19/19 12/29/18 History [DUONEB *Not for PRN Use*] Tamsulosin [Flomax] 0.4 mg PO QDAY 07/30/18 01/19/19 01/19/19 10:00 History Vit C/Ascorbate Calcium,Sodium 500 mg NGTUBE BID 07/30/18 01/19/19 12/29/18 History [Vitamin C 500 mg/15 ml Liquid] Zinc Sulfate 220 mg NGTUBE QDAY 07/30/18 01/19/19 12/29/18 History levETIRAcetam [Keppra INJ] 500 mg PO Q12H 07/30/18 01/19/19 01/19/19 13:55 History Phosphorus #1 [K-Phos Neutral] 250 mg PO QID #30 tablet 08/23/18 01/19/19 12/29/18 Rx AtorvaSTATin [Lipitor] 40 mg NGTUBE QHS #30 tablet 10/21/18 01/19/19 12/29/18 Rx Insulin Aspart [NovoLOG 100 0 unit SQ AC 11/01/18 01/19/19 12/29/18 History UNITS/ML VIAL] ALBUTEROL NEB's [Proventil 0.083% 2.5 mg IH Q3HRT PRN nebu 12/27/18 01/19/19 0 12/29/18 Rx NEBS] Carvedilol [Coreg] 6.25 mg PO BID tablet 12/27/18 01/19/19 12/29/18 Rx Cefuroxime Axetil [Ceftin] 500 mg PO Q12H #140 ml 01/02/19 01/19/19 Unknown Rx Active Medications: Generic Name Dose Route Start Last Admin Trade Name Freq PRN Reason Stop Dose Admin Acetaminophen 650 mg 01/15/19 21:06 01/22/19 00:52 Tylenol PO 650 mg Q4H PRN Administration Pain MILD(1-3)/Fever >100.5/PRICE Albuterol 2.5 mg 01/15/19 21:28 Proventil IH Q4HRT PRN Shortness Of Breath Lipase/Protease/Amylase 1 each 01/17/19 14:21 Pancreaze 10,500 Unit FEEDTUBE PRN PRN For Clogged Feeding Tube Carvedilol 12.5 mg 01/20/19 22:00 01/21/19 22:41 Coreg PO 12.5 mg BID NORA Administration Dextrose 50 ml 01/15/19 19:31 D50w (25gm) Syringe IV PRN PRN Hypoglycemia Fludrocortisone Acetate 0.1 mg 01/16/19 16:00 01/21/19 10:25 Florinef PO 0.1 mg QDAY NORA Administration Heparin Sodium (Porcine) 5,000 unit 01/15/19 22:00 01/21/19 22:41 Heparin SUB-Q 5,000 unit Q12HR NORA Administration Cefepime HCl 2 gm in 100 mls @ 200 mls/hr 01/17/19 10:00 01/21/19 10:22 Maxipime/Ns 2 Gm/100 Ml IV 01/23/19 23:59 200 mls/hr Q24HR NORA Administration Protocol Sodium Bicarbonate 150 meq/ 1,150 mls @ 75 mls/hr 01/19/19 17:00 01/21/19 22:39 Dextrose IV 75 mls/hr DIRECT NORA Administration Insulin Human Regular 0 units 01/21/19 00:00 01/22/19 06:21 Humulin R SUB-Q Not Given Q6HR NORA Protocol Levetiracetam 500 mg 01/15/19 22:00 01/21/19 22:41 Keppra PO 500 mg Q12HR NORA Administration Ondansetron HCl 4 mg 01/15/19 21:06 Zofran IV Q6H PRN Nausea And Vomiting Simple Syrup 15 ml 01/17/19 14:21 Simple Syrup FEEDTUBE PRN PRN Hypoglycemia Simple Syrup 30 ml 01/17/19 14:21 Simple Syrup FEEDTUBE PRN PRN Hypoglycemia Sodium Bicarbonate 325 mg 01/17/19 14:21 01/17/19 22:43 Sodium Bicarbonate FEEDTUBE 325 mg PRN PRN Administration For Clogged Feeding Tube Sodium Chloride 10 ml 01/15/19 22:00 01/21/19 22:42 Sodium Chloride Flush Syringe 10 Ml IV 10 ml BID NORA Administration Sodium Chloride 10 ml 01/15/19 21:06 Sodium Chloride Flush Syringe 10 Ml IV PRN PRN LINE FLUSH Tamsulosin HCl 0.4 mg 01/16/19 10:00 01/21/19 10:14 Flomax PO 0.4 mg QDAY NORA Administration
[2019-01-22] MEDS: FLOMAX PO SCH (10:56)
[2019-01-22] MEDS: FLORINEF PO SCH (10:56)
[2019-01-22] MEDS: MAXIPIME/NS 2 GM/100 ML 2 GM/100 ML BAG IV SCH (10:56)
[2019-01-22] MEDS: HEPARIN SUB-Q SCH ×2 (10:57→22:45)
[2019-01-22] MEDS: COREG PO SCH ×2 (10:57→22:44)
[2019-01-22] MEDS: SODIUM CHLORIDE FLUSH SYRINGE 10 ML IV SCH ×2 (10:58→22:45)
[2019-01-22] MEDS: KEPPRA PO SCH ×2 (11:00→22:44)
--- NOTE | 2019-01-22 11:26 | Progress Note ---
Assessment and Plan Cultures: 01/15 BCx - no growth Urine Cx - mixed >2 organisms A/P: 68 yo M PMHx HTN, CVA, CHF, BPH, contractures, sacral pressure ulcer, b/l LE pressure ulcer, CAD, DM2, COPD, dementia admitted with UTI 1. Sepsis secondary to UTI - Resolved. Urinalysis with significant pyuria. Urine culture mixed . 2 organisms. Surprisingly, his most recent positive urine culture was in May with Pseudomonas despite recurrently positive blood c ultures. In light of this, will change ceftriaxone to cefepime pending urine and blood cultures. Would not be surprised if blood cultures are again positive. 2. Chronic sacral pressure ulcer - seen in room when wound care was dressing. No obvious purulence or change. Wouldn't recommend treating at this point unless symptoms change. Unless new purulent discharge is observed would avoid culturing in order to avoid complicating picture with colonizers. 3. chronic b/l LE pressure ulcers 4. HTN 5. CVA 6. CHF 7. CAD 8. DM2 9. COPD 10. Dementia Recs: - Continue Cefepime 2g q24h for 7 days. ( stop date: 01/23/19) ID is signing off. Please call for questions. Jacquie Jean Baptiste NP [facility] M: [id number] O:[phone] Subjective Date of service: 01/22/19 Principal diagnosis: sepsis bladder outlet obst Interval history: Patient seen and examined. Mostly non-verbal today. No acute distress observed. No fevers. Objective - Exam Narrative Exam: Constitutional: Awake. Alert. Non-verbal today. No acute distress observed Head, Ears, Nose: Normocephalic, atraumatic. External ears, nose normal Eyes: Conjunctivae/corneas clear. No icterus. No ptosis. Neck: Supple, no meningeal signs Oral: dentition fair, no thrush Cardiovascular: S1, S2 normal. Respiratory: Good air entry, clear to auscultation bilaterally GI: Soft, non-tender; bowel sounds normal. No peritoneal signs. : Chaudhary in place Musculoskeletal: No pedal edema, no cyanosis. Skin: No rash or abscess Hem/Lymphatic: No palpable cervical or supraclavicular nodes. No lymphangitis Neurological: Awake. Not following commands. - Constitutional Vitals: Vital Signs Temp Pulse Resp BP Pulse Ox 97.8 F 67 20 135/60 96 01/22/19 06:30 01/22/19 10:57 01/22/19 06:29 01/22/19 06:29 01/22/19 10:00 Temperature -Last 24 Hours Temperature 97.8 F Temperature 98.3 F Temperature 99.1 F Temperature 98.3 F Temperature 98.2 F - Labs CBC & Chem 7: 01/19/19 Unknown 01/22/19 05:18 Labs: Abnormal lab results 01/21/19 01/21/19 01/21/19 Range/Units 12:19 13:10 19:21 Potassium 3.1 L (3.6-5.0) mmol/L Carbon Dioxide 21 L (22-30) mmol/L BUN 92 H (9-20) mg/dL Creatinine 3.4 H (0.8-1.5) mg/dL Glucose 118 H (75-100) mg/dL POC Glucose 145 H 132 H (70-105) Calcium 8.3 L (8.4-10.2) mg/dL 01/22/19 01/22/19 01/22/19 Range/Units 01:00 05:18 06:02 Potassium 3.0 L (3.6-5.0) mmol/L Carbon Dioxide (22-30) mmol/L BUN 91 H (9-20) mg/dL Creatinine 3.1 H (0.8-1.5) mg/dL Glucose 121 H (75-100) mg/dL POC Glucose 148 H 120 H (70-105) Calcium 8.2 L (8.4-10.2) mg/dL
--- NOTE | 2019-01-22 11:32 | Progress Note ---
<ALLEN BARNES - Last Filed: 01/22/19 11:28> Assessment and Plan Sepsis Decubitus ulcer infections Recurrent UTI Severe Anemia Hypokalemia Chronically elevated troponin Paroxysmal Afib previously considered not a candidate for oral anticoagulation LBBB, chronic Non-ischemic Cardiomyopathy EF 30-35% DIANA-i allergy Paroxysmal NSVT on telemetry it's reported the patient remained asymptomatic. Recommendations: Beta blockers as tolerated, for suppression of paroxysmal NSVT. Replace potassium. Keep potassium greater than 4 and magnesium greater than 2. Otherwise conservative cardiac management. Subjective Date of service: 01/22/19 Principal diagnosis: sepsis bladder outlet obst Interval history: Short burst of NSVT reported overnight. Labs revealed a potassium of 3.0. Objective Vital Signs Temp Pulse Pulse Resp BP BP Pulse Ox 01/22/19 10:57 67 01/22/19 10:00 96 01/22/19 06:30 97.8 F 01/22/19 06:29 62 20 135/60 99 01/22/19 01:52 18 01/22/19 00:52 18 01/21/19 23:52 98.3 F 01/21/19 23:51 70 20 112/54 99 01/21/19 22:45 84 18 96 01/21/19 22:41 84 130/58 01/21/19 20:38 99.1 F 01/21/19 20:37 84 22 130/58 96 01/21/19 19:30 2 L 01/21/19 19:27 84 01/21/19 17:35 80 121/67 96 01/21/19 16:30 98.3 F 81 18 121/67 2 L 01/21/19 11:35 80 131/64 97 01/21/19 11:30 98.2 F 64 19 131/64 2 L - Physical Examination General: No Apparent Distress, Cachectic HEENT: Positive: PERRL Neck: Positive: neck supple Cardiac: Positive: Reg Rate and Rhythm Lungs: Positive: Decreased Breath Sounds Extremities: Absent: edema - Labs and Meds Comprehensive Metabolic Panel 01/21/19 01/22/19 Range/Units 12:19 05:18 Sodium 142 140 (137-145) mmol/L Potassium 3.1 L 3.0 L (3.6-5.0) mmol/L Chloride 101.3 100.1 (98-107) mmol/L Carbon Dioxide 21 L 23 (22-30) mmol/L BUN 92 H 91 H (9-20) mg/dL Creatinine 3.4 H 3.1 H (0.8-1.5) mg/dL Glucose 118 H 121 H (75-100) mg/dL Calcium 8.3 L 8.2 L (8.4-10.2) mg/dL <JOSEFA CORDOVA - Last Filed: 01/23/19 22:12> Assessment and Plan I have seen and evaluated the patient and agree with the assessment and plan. continue goal directed medical therapy for treatment of non-ischemic cardiomyopathy. Objective Vital Signs Temp Pulse Pulse Resp BP Pulse Ox 01/23/19 10:00 72 01/23/19 08:49 97.4 F L 72 24 135/66 99 01/23/19 04:21 98.4 F 72 20 141/62 97 01/22/19 23:38 97.6 F 75 20 137/68 98 01/22/19 22:44 87 126/75 01/22/19 22:35 81 18 98 - Labs and Meds Comprehensive Metabolic Panel 01/23/19 01/23/19 Range/Units 07:07 14:45 Sodium 141 (137-145) mmol/L Potassium 2.5 L* 3.3 L D (3.6-5.0) mmol/L Chloride 101.0 (98-107) mmol/L Carbon Dioxide 25 (22-30) mmol/L BUN 86 H (9-20) mg/dL Creatinine 2.6 H (0.8-1.5) mg/dL Glucose 135 H (75-100) mg/dL Calcium 8.3 L (8.4-10.2) mg/dL
[2019-01-22] MEDS ORDERED: NACL 0.9% 1000 ML 1,000 ML IV ONE (15:37)
[2019-01-22] MEDS: SODIUM BICARBONATE 150 MEQ in D5W 1,000 ML IV SCH (16:06)
--- NOTE | 2019-01-22 17:52 | Progress Note ---
Assessment and Plan Assessment and plan: Patient is a 68-year-old man who is a resident of [facility] with a plethora of severe co-morbidities including hypertension, CVA with residuals, contracture upper and lower extremities, sacral pressure ulcer/osteomyelitis, bilateral lower extremity pressure ulcer, CAD, DM, seizure, COPD, dementia UTI, MDR PSA related to sacral wound, dementia with contractures/quadriplegia, hypertension, combined CHF with EF 30-35%, seizure disorder, BPH with suspected functional bladder outlet obstruction with chronic indwelling bright (Bright changed 01/16/2019), recurrent UTIs, ARF, functional quadriplegia due to the dementia, prostate abscesses with lytic lesion and MRSA bacteremia s/p IV vancomycin who presents to [facility] for hyperkalemia found on labs from [place]. * pCXR no acute findings, Acute respiratory failure -ABG reviewed -consulted pulmonology -d/c iv fluids, considering iv lasix but sbp is low Sepsis -Likely secondary to urinary tract infection -Blood Cultures pending -On IV abx -Gentle hydration with IVF -ID consulted, input noted, change iv rocephin to cefepime -Continue to monitor UTI -Urine WBC >182 -Urine culture pending, -urine culture contaminated -Start on IV Abx -bright changed by Dr. Gabriel on 01/16/19 Hypotension -IVF but carefully with CHF history MÓNICA, vasomotor nephropathy, ATN -Cr on admission 3.6 with GFR 20 -Baseline around 1.0 -Avoid nephrotoxic agents -Renal dose all meds -Nephrology consulted AND INPUT NOTED. Await sign of plateau and improvement prior to discharge Hyperkalemia -now hypokalemia- replace -Received hyperkalemic cocktail in ED Hx BPH -Bright catheter -disContinue Flomax due to hypotension Hx Seizure disorder -continue Keppra Hypertension, now hypotensive -Continue to monitor BP -disContinue Coreg Hx of Pressure Ulcers -Sacral and BLE -Wound care consult pending DM 2 -POC BG monitoring -SSI coverage COPD -Albuterol prn Hx Dementia Hx CHF, EF 30-35% Hx CVA DVT PPX -stop Heparin acute on chronic anemia of chronic disease s/p 1 unit [facility], transfuse blood 01/17/19 monitor cbc closely Disposition: continue inpatient care, d/c back to [facility] once renal clears History Interval history: Patient seen and examined, no change in clinical status, no adverse event reported overnight, stable Hospitalist Physical - Physical exam Narrative exam: Gen: severely disable, contractured legs in position, neck flexed downward, ill appearing, moderated increase in accessory muscles, nonverbal HEENT: NCAT, EOMI, PERRL, OP Clear Neck: supple, no adenopathy, no thyromegaly, no JVD CVS/Heart: Reg tachycardia normal S1S2, pulses present bilaterally Chest/Lungs: tachypneic, CTA B, Symmetrical chest expansion, good air entry bilaterally GI/Abdomen: soft, NTND, good bowel sounds, no guarding or rebound /Bladder: no suprapubic tenderness, no CVA or paraspinal tenderness Neuro: CN 2-12 grossly intact, no new focal deficits Msk/skin: multiple pressure ulcer, sacrum, legs, feet, even elbows, stage 3 at least, atrophic limb x 4 Psych: nonverbal - Constitutional Vitals: Temp Pulse Resp BP Pulse Ox 97.3 F L 66 20 152/70 98 01/22/19 13:33 01/22/19 13:33 01/22/19 13:33 01/22/19 13:33 01/22/19 13:33 General appearance: Present: no acute distress, cachectic Results - Labs CBC & Chem 7: 01/19/19 Unknown 01/22/19 05:18 Labs: Laboratory Last Values WBC 6.0 K/mm3 (4.5-11.0) 01/19/19 Unknown RBC 2.87 M/mm3 (3.65-5.03) L 01/19/19 Unknown Hgb 7.9 gm/dl (11.8-15.2) L 01/19/19 Unknown Hct 24.8 % (35.5-45.6) L 01/19/19 Unknown MCV 86 fl (84-94) 01/19/19 Unknown MCH 28 pg (28-32) 01/19/19 Unknown MCHC 32 % (32-34) 01/19/19 Unknown RDW 17.4 % (13.2-15.2) H 01/19/19 Unknown Plt Count 411 K/mm3 (140-440) 01/19/19 Unknown Lymph % (Auto) 11.2 % (13.4-35.0) L 01/19/19 Unknown Ware % (Auto) 8.8 % (0.0-7.3) H 01/19/19 Unknown Eos % (Auto) 4.5 % (0.0-4.3) H 01/19/19 Unknown Baso % (Auto) 0.9 % (0.0-1.8) 01/19/19 Unknown Lymph # 0.7 K/mm3 (1.2-5.4) L 01/19/19 Unknown Ware # 0.5 K/mm3 (0.0-0.8) 01/19/19 Unknown Eos # 0.3 K/mm3 (0.0-0.4) 01/19/19 Unknown Baso # 0.1 K/mm3 (0.0-0.1) 01/19/19 Unknown Add Manual Diff Complete 01/18/19 00:22 Total Counted 100 01/18/19 00:22 Seg Neutrophils % 74.6 % (40.0-70.0) H 01/19/19 Unknown Seg Neuts % (Manual) 76.0 % (40.0-70.0) H 01/18/19 00:22 0 % 01/18/19 00:22 12.0 % (13.4-35.0) L 01/18/19 00:22 Reactive Lymphs % (Man) 0 % 01/18/19 00:22 6.0 % (0.0-7.3) 01/18/19 00:22 5.0 % (0.0-4.3) H 01/18/19 00:22 1.0 % (0.0-1.8) 01/18/19 00:22 0 % 01/18/19 00:22 0 % 01/18/19 00:22 0 % 01/18/19 00:22 0 % 01/18/19 00:22 Nucleated RBC % Not Reportable 01/18/19 00:22 Seg Neutrophils # 4.5 K/mm3 (1.8-7.7) 01/19/19 Unknown Seg Neutrophils # Man 8.1 K/mm3 (1.8-7.7) H 01/18/19 00:22 Band Neutrophils # 0.0 K/mm3 01/18/19 00:22 1.3 K/mm3 (1.2-5.4) 01/18/19 00:22 Abs React Lymphs (Man) 0.0 K/mm3 01/18/19 00:22 0.6 K/mm3 (0.0-0.8) 01/18/19 00:22 0.5 K/mm3 (0.0-0.4) H 01/18/19 00:22 0.1 K/mm3 (0.0-0.1) 01/18/19 00:22 0.0 K/mm3 01/18/19 00:22 0.0 K/mm3 01/18/19 00:22 0.0 K/mm3 01/18/19 00:22 Blast Cells # 0.0 K/mm3 01/18/19 00:22 WBC Morphology Not Reportable 01/18/19 00:22 Hypersegmented Neuts Not Reportable 01/18/19 00:22 Hyposegmented Neuts Not Reportable 01/18/19 00:22 Hypogranular Neuts Not Reportable 01/18/19 00:22 Cancelled 01/16/19 10:40 Not Reportable 01/18/19 00:22 Not Reportable 01/18/19 00:22 Not Reportable 01/18/19 00:22 Not Reportable 01/18/19 00:22 Not Reportable 01/18/19 00:22 Not Reportable 01/18/19 00:22 Not Reportable 01/18/19 00:22 Not Reportable 01/18/19 00:22 Plt Clumps, EDTA Not Reportable 01/18/19 00:22 Not Reportable 01/18/19 00:22 Not Reportable 01/18/19 00:22 Not Reportable 01/18/19 00:22 Plt Morphology Comment Not Reportable 01/18/19 00:22 RBC Morphology Normal 01/18/19 00:22 Dimorphic RBCs Not Reportable 01/18/19 00:22 Not Reportable 01/18/19 00:22 Not Reportable 01/18/19 00:22 Not Reportable 01/18/19 00:22 Cancelled 01/16/19 10:40 Not Reportable 01/18/19 00:22 Not Reportable 01/18/19 00:22 Not Reportable 01/18/19 00:22 Not Reportable 01/18/19 00:22 Not Reportable 01/18/19 00:22 Not Reportable 01/18/19 00:22 Not Reportable 01/18/19 00:22 Not Reportable 01/18/19 00:22 Not Reportable 01/18/19 00:22 Cancelled 01/16/19 10:40 Not Reportable 01/18/19 00:22 Not Reportable 01/18/19 00:22 Not Reportable 01/18/19 00:22 Not Reportable 01/18/19 00:22 Not Reportable 01/18/19 00:22 Not Reportable 01/18/19 00:22 Not Reportable 01/18/19 00:22 Acanthocytes (Spur) Not Reportable 01/18/19 00:22 Rouleaux Not Reportable 01/18/19 00:22 Not Reportable 01/18/19 00:22 Not Reportable 01/18/19 00:22 Not Reportable 01/18/19 00:22 Not Reportable 01/18/19 00:22 Hem Pathologist Commnt No 01/18/19 00:22 PT 17.8 Sec. (12.2-14.9) H 01/15/19 19:16 INR 1.51 (0.87-1.13) H 01/15/19 19:16 APTT 50.6 Sec. (24.2-36.6) H 01/15/19 19:16 ABG pH 7.468 pH Units (7.350-7.450) H 01/16/19 09:50 ABG pCO2 29.8 mm Hg 01/16/19 09:50 ABG pO2 86.7 mm Hg (80.0-90.0) 01/16/19 09:50 ABG HCO3 21.1 mmol/L (20.0-26.0) 01/16/19 09:50 ABG O2 Saturation 97.3 % (95.0-99.0) 01/16/19 09:50 ABG O2 Content 11.2 (0.0-44) 01/16/19 09:50 ABG Base Excess -2.1 mmol/L (-2.0-3.0) L 01/16/19 09:50 ABG Hemoglobin 8.3 gm/dl (14.0-18.0) L 01/16/19 09:50 ABG Carboxyhemoglobin 1.9 % (0.0-5.0) 01/16/19 09:50 ABG Methemoglobin 0.5 % (0.0-1.5) 01/16/19 09:50 95.0 % (95.0-99.0) 01/16/19 09:50 28 % 01/16/19 09:50 Sodium 140 mmol/L (137-145) 01/22/19 05:18 Potassium 3.0 mmol/L (3.6-5.0) L 01/22/19 05:18 Chloride 100.1 mmol/L (98-107) 01/22/19 05:18 Carbon Dioxide 23 mmol/L (22-30) 01/22/19 05:18 20 mmol/L 01/22/19 05:18 BUN 91 mg/dL (9-20) H 01/22/19 05:18 3.1 mg/dL (0.8-1.5) H 01/22/19 05:18 Estimated GFR 24 ml/min 01/22/19 05:18 29 % 01/22/19 05:18 Glucose 121 mg/dL (75-100) H 01/22/19 05:18 POC Glucose 125 (70-105) H 01/22/19 12:46 Lactic Acid 0.90 mmol/L (0.7-2.0) 01/17/19 09:27 7.3 mg/dL (3.5-7.6) 01/15/19 23:04 Calcium 8.2 mg/dL (8.4-10.2) L 01/22/19 05:18 Magnesium 2.10 mg/dL (1.7-2.3) 01/20/19 05:50 160 units/L (55-170) 01/15/19 18:27 0.633 ng/mL (0.00-0.029) H* 01/17/19 11:26 Triglycerides 122 mg/dL (2-149) 01/17/19 06:15 Cholesterol 52 mg/dL (50-199) 01/17/19 06:15 11 mg/dL (50-130) L 01/17/19 06:15 19 mg/dL (40-59) L 01/17/19 06:15 2.73 % 01/17/19 06:15 Yellow (Yellow) 01/15/19 18:50 Cloudy (Clear) 01/15/19 18:50 8.0 (5.0-7.0) H 01/15/19 18:50 Ur Specific [place] 1.015 (1.003-1.030) 01/15/19 18:50 100 mg/dl mg/dL (Negative) 01/15/19 18:50 Neg mg/dL (Negative) 01/15/19 18:50 Neg mg/dL (Negative) 01/15/19 18:50 Sm (Negative) 01/15/19 18:50 Neg (Negative) 01/15/19 18:50 Neg (Negative) 01/15/19 18:50 < 2.0 mg/dL (<2.0) 01/15/19 18:50 Ur Leukocyte Esterase Lg (Negative) 01/15/19 18:50 > 182.0 /HPF (0.0-6.0) H 01/15/19 18:50 14.0 /HPF (0.0-6.0) 01/15/19 18:50 1+ /HPF (Negative) 01/15/19 18:50 3+ /HPF 01/15/19 18:50 Few /HPF 01/15/19 18:50 49.5 mg/dL (0.1-20.0) H 01/16/19 Unknown Protein/Creatinin Ratio 3.66 01/16/19 Unknown 56 mmol/L 01/16/19 Unknown 181 mg/dL (5-11.8) H 01/16/19 Unknown Blood Type O POSITIVE 01/17/19 06:53 Antibody Screen Negative 01/17/19 06:53 Crossmatch See Detail 01/17/19 06:53 Active Medications - Current Medications Current Medications: Generic Name Dose Route Start Last Admin Trade Name Freq PRN Reason Stop Dose Admin Acetaminophen 650 mg 01/15/19 21:06 01/22/19 00:52 Tylenol PO 650 mg Q4H PRN Administration Pain MILD(1-3)/Fever >100.5/PRICE Albuterol 2.5 mg 01/15/19 21:28 Proventil IH Q4HRT PRN Shortness Of Breath Lipase/Protease/Amylase 1 each 01/17/19 14:[address] 10,500 Unit FEEDTUBE PRN PRN For Clogged Feeding Tube Carvedilol 12.5 mg 01/20/19 22:00 01/22/19 10:57 Coreg PO 12.5 mg BID NORA Administration Dextrose 50 ml 01/15/19 19:31 D50w (25gm) Syringe IV PRN PRN Hypoglycemia Fludrocortisone Acetate 0.1 mg 01/16/19 16:00 01/22/19 10:56 Florinef PO 0.1 mg QDAY NORA Administration Heparin Sodium (Porcine) 5,000 unit 01/15/19 22:00 01/22/19 10:57 Heparin SUB-Q 5,000 unit Q12HR NORA Administration Cefepime HCl 2 gm in 100 mls @ 200 mls/hr 01/17/19 10:00 01/22/19 10:56 Maxipime/Ns 2 Gm/100 Ml IV 01/23/19 23:59 200 mls/hr Q24HR NORA Administration Protocol Sodium Bicarbonate 150 meq/ 1,150 mls @ 75 mls/hr 01/19/19 17:00 01/22/19 16:06 Dextrose IV 75 mls/hr DIRECT NORA Administration Insulin Human Regular 0 units 01/21/19 00:00 01/22/19 16:07 Humulin R SUB-Q Not Given Q6HR [facility] Protocol Levetiracetam 500 mg 01/15/19 22:00 01/22/19 11:00 Keppra PO 500 mg Q12HR NORA Administration Ondansetron HCl 4 mg 01/15/19 21:06 Zofran IV Q6H PRN Nausea And Vomiting Simple Syrup 15 ml 01/17/19 14:21 Simple Syrup FEEDTUBE PRN PRN Hypoglycemia Simple Syrup 30 ml 01/17/19 14:21 Simple Syrup FEEDTUBE PRN PRN Hypoglycemia Sodium Bicarbonate 325 mg 01/17/19 14:21 01/17/19 22:43 Sodium Bicarbonate FEEDTUBE 325 mg PRN PRN Administration For Clogged Feeding Tube Sodium Chloride 10 ml 01/15/19 22:00 01/22/19 10:58 Sodium Chloride Flush Syringe 10 Ml IV Not Given BID NORA Sodium Chloride 10 ml 01/15/19 21:06 Sodium Chloride Flush Syringe 10 Ml IV PRN PRN LINE FLUSH Tamsulosin HCl 0.4 mg 01/16/19 10:00 01/22/19 10:56 Flomax PO 0.4 mg QDAY NORA Administration Nutrition/Malnutrition Assess - Dietary Evaluation Nutrition/Malnutrition Findings: Nutrition Notes Start: 01/16/19 14:38 Freq: Status: Active Protocol: Document 01/21/19 13:21 RS (Rec: 01/21/19 13:54 RS [id number]) Co-Sign 01/21/19 13:21 LP Nutrition Notes Initial or Follow up Reassessment Current Diagnosis Acute Kidney Injury,COPD, Coronary Artery Disease, Diabetes,Sepsis,Hypertension, Heart Failure Other Pertinent Diagnosis Hx CVA, Sacral PU, UTI, Dementia, Hx seizure disorder, PEG Current Diet Nepro at 40 ml/hr Labs/Tests Na 142 K 3.1 BUN 92 Creat 3.4 Pertinent Medications Reviewed Height 5 ft 7 in Weight 66.8 kg [place] Body Weight (kg) 67.27 BMI 23.1 Subjective/Other Information Observed Nepro at 40mL/hr. Pt tolerating well. Percent of energy/protein needs met: 100% kcal met 80% Pro met Burn Absent Trauma Absent #1 Nutrition Diagnosis Inadequate oral intake Diagnosis Progress(for reassessment Continues documentation) Is patient on ventilator? No Is Patient Ambulatory and/or Out of Bed No REE-([facility]-confined to bed) 9045.774 Calculation Used for Recommendations [facility] Additional Notes Protein Needs: 97-110g (1.5-1. 7g/kg) Fluid Needs: 1 ml/kcal Nutrition Intervention Nutrition Support: Nepro at 40 ml/hr. Water flush 250 mls q 4 hrs until hypernatremia resolves. Water flush of 150 mls q 4 hrs once hypernatremia resolves. Kcal 1,728 Protein (gm) 78 Fluid (mL) 698 Goal #1 TF tolerance Goal #2 Meet at least 75% of calorie and protein needs via TF Anticipated Discharge Needs: TF Follow-Up By: 01/28/19 Additional Comments Follow for TF tolerance, renal labs
[2019-01-22] MEDS: KCL 10MEQ/100ML 10 MEQ/100 ML BAG IV SCH ×2 (18:00→21:15)
[2019-01-23] MEDS: HumuLIN R SUB-Q SCH ×2 (01:25→13:23)
[2019-01-23 07:49] LABS: Calcium 8.3 mg/dL (8.4-10.2)
--- NOTE | 2019-01-23 08:31 | Progress Note ---
Subjective Principal diagnosis: sepsis bladder outlet obst Interval history: Patient was seen today for follow-up, on many renal related issues does not appear to be in any distress Interdisciplinary notes were reviewed Vitals labs intake and output medications were reviewed from today Allergies: Reviewed Social history: Reviewed Family history: Reviewed Physical examination HEENT: Oral mucosa moist no pharyngeal erythema Neck: Supple no JVD Chest: Clear to auscultation no crackles rales or wheezes Heart: Regular rate and rhythm S1-S2 heard no S3-S4 Abdomen: Soft nontender no renal bruit no CVA tenderness no suprapubic fullness Extremity: Mild edema dry skin no peripheral cyanosis pulses palpable Neurological: Alert awake Musculoskeletal: No joint effusion noted Assessment and plan Acute kidney injury with underlying chronic kidney disease: Renal function continues to improve slowly Continue to avoid any follow-up nephrotoxic medication, renal prognosis appears to be guarded Monitor basic metabolic profile, periodically strict intake and output monitoring Patient's baseline creatinine is around 1.4 as of January 12, 2019 Attending current labs, the creatinine was 4.1 on January 17, 2019 potassium needs to be followed up closely to make sure it stays around 4 Will continue to follow and make recommendation from renal standpoint Objective - Vital Signs Vital signs: Vital Signs - 12hr 01/22/19 01/22/19 01/22/19 22:35 22:44 23:38 Temperature 97.6 F Pulse Rate 87 75 Pulse Rate [ 81 Apical] Respiratory 18 20 Rate Blood Pressure 126/75 137/68 O2 Sat by Pulse 98 98 Oximetry 01/23/19 04:21 Temperature 98.4 F Pulse Rate 72 Pulse Rate [ Apical] Respiratory 20 Rate Blood Pressure 141/62 O2 Sat by Pulse 97 Oximetry - Lab 01/19/19 Unknown 01/23/19 14:45 Most recent lab results ABG pH 7.468 pH Units (7.350-7.450) H 01/16/19 09:50 ABG pCO2 29.8 mm Hg 01/16/19 09:50 ABG pO2 86.7 mm Hg (80.0-90.0) 01/16/19 09:50 ABG HCO3 21.1 mmol/L (20.0-26.0) 01/16/19 09:50 ABG O2 Saturation 97.3 % (95.0-99.0) 01/16/19 09:50 Calcium 8.3 mg/dL (8.4-10.2) L 01/23/19 07:07 Magnesium 2.10 mg/dL (1.7-2.3) 01/20/19 05:50 49.5 mg/dL (0.1-20.0) H 01/16/19 Unknown 56 mmol/L 01/16/19 Unknown 181 mg/dL (5-11.8) H 01/16/19 Unknown Medications & Allergies - Medications Allergies/Adverse Reactions: Allergies lisinopril Allergy (Verified 10/01/18 15:17) Unknown tramadol Allergy (Verified 07/29/18 18:39) Unknown Home Medications: Home Medications Medication Instructions Recorded Confirmed Last Taken Type Multivit-Min/Iron Fum/Folic AC 1 each PO DAILY 03/24/18 01/19/19 12/29/18 History [Pnbyx-Mzpqirk-Xpyazhih Tablet] Acetaminophen 650 mg NGTUBE Q6H PRN 07/30/18 01/19/19 12/29/18 History Ipratropium/Albuterol Sulfate 1 ampul IH BID 07/30/18 01/19/19 12/29/18 History [DUONEB *Not for PRN Use*] Tamsulosin [Flomax] 0.4 mg PO QDAY 07/30/18 01/19/19 01/19/19 10:00 History Vit C/Ascorbate Calcium,Sodium 500 mg NGTUBE BID 07/30/18 01/19/19 12/29/18 History [Vitamin C 500 mg/15 ml Liquid] Zinc Sulfate 220 mg NGTUBE QDAY 07/30/18 01/19/19 12/29/18 History levETIRAcetam [Keppra INJ] 500 mg PO Q12H 07/30/18 01/19/19 01/19/19 13:55 History Phosphorus #1 [K-Phos Neutral] 250 mg PO QID #30 tablet 08/23/18 01/19/19 0 12/29/18 Rx AtorvaSTATin [Lipitor] 40 mg NGTUBE QHS #30 tablet 10/21/18 01/19/19 12/29/18 Rx Insulin Aspart [NovoLOG 100 0 unit SQ AC 11/01/18 01/19/19 12/29/18 History UNITS/ML VIAL] ALBUTEROL NEB's [Proventil 0.083% 2.5 mg IH Q3HRT PRN nebu 12/27/18 01/19/19 12/29/18 Rx NEBS] Cefuroxime Axetil [Ceftin] 500 mg PO Q12H #140 ml 01/02/19 01/19/19 Unknown Rx Carvedilol [Coreg] 12.5 mg PO BID #60 tablet 01/23/19 Unknown Rx Active Medications: Generic Name Dose Route Start Last Admin Trade Name Freq PRN Reason Stop Dose Admin Acetaminophen 650 mg 01/15/19 21:06 01/22/19 00:52 Tylenol PO 650 mg Q4H PRN Administration Pain MILD(1-3)/Fever >100.5/PRICE Albuterol 2.5 mg 01/15/19 21:28 Proventil IH Q4HRT PRN Shortness Of Breath Lipase/Protease/Amylase 1 each 01/17/19 14:21 Pancreaze 10,500 Unit FEEDTUBE PRN PRN For Clogged Feeding Tube Carvedilol 12.5 mg 01/20/19 22:00 01/22/19 22:44 Coreg PO 12.5 mg BID NORA Administration Dextrose 50 ml 01/15/19 19:31 D50w (25gm) Syringe IV PRN PRN Hypoglycemia Fludrocortisone Acetate 0.1 mg 01/16/19 16:00 01/22/19 10:56 Florinef PO 0.1 mg QDAY NORA Administration Heparin Sodium (Porcine) 5,000 unit 01/15/19 22:00 01/22/19 22:45 Heparin SUB-Q 5,000 unit Q12HR NORA Administration Cefepime HCl 2 gm in 100 mls @ 200 mls/hr 01/17/19 10:00 01/22/19 10:56 Maxipime/Ns 2 Gm/100 Ml IV 01/23/19 23:59 200 mls/hr Q24HR NORA Administration Protocol Sodium Bicarbonate 150 meq/ 1,150 mls @ 75 mls/hr 01/19/19 17:00 01/22/19 16:06 Dextrose IV 75 mls/hr DIRECT NORA Administration Insulin Human Regular 0 units 01/21/19 00:00 01/23/19 01:25 Humulin R SUB-Q Not Given Q6HR NORA Protocol Levetiracetam 500 mg 01/15/19 22:00 01/22/19 22:44 Keppra PO 500 mg Q12HR NORA Administration Ondansetron HCl 4 mg 01/15/19 21:06 Zofran IV Q6H PRN Nausea And Vomiting Simple Syrup 15 ml 01/17/19 14:21 Simple Syrup FEEDTUBE PRN PRN Hypoglycemia Simple Syrup 30 ml 01/17/19 14:21 Simple Syrup FEEDTUBE PRN PRN Hypoglycemia Sodium Bicarbonate 325 mg 01/17/19 14:21 01/17/19 22:43 Sodium Bicarbonate FEEDTUBE 325 mg PRN PRN Administration For Clogged Feeding Tube Sodium Chloride 10 ml 01/15/19 22:00 01/22/19 22:45 Sodium Chloride Flush Syringe 10 Ml IV 10 ml BID NORA Administration Sodium Chloride 10 ml 01/15/19 21:06 Sodium Chloride Flush Syringe 10 Ml IV PRN PRN LINE FLUSH Tamsulosin HCl 0.4 mg 01/16/19 10:00 01/22/19 10:56 Flomax PO 0.4 mg QDAY NORA Administration
--- NOTE | 2019-01-23 09:59 | Progress Note ---
Assessment and Plan Sepsis Decubitus ulcer infections Recurrent UTI Severe Anemia Hypokalemia Chronically elevated troponin Paroxysmal Afib previously considered not a candidate for oral anticoagulation LBBB, chronic Non-ischemic Cardiomyopathy EF 30-35% DIANA-i allergy Paroxysmal NSVT on telemetry it's reported the patient remained asymptomatic. Recommendations: Beta blockers as tolerated, for suppression of paroxysmal NSVT. Replace potassium. Maintain potassium greater than 4 and magnesium greater than 2. Otherwise, conservative cardiac management. Subjective Date of service: 01/23/19 Principal diagnosis: sepsis bladder outlet obst Interval history: Short burst of NSVT reported overnight. Labs revealed severe hypokalemia, potassium of 2.5 today. Objective Vital Signs Temp Pulse Pulse Resp BP BP Pulse Ox 01/23/19 04:21 98.4 F 72 20 141/62 97 01/22/19 23:38 97.6 F 75 20 137/68 98 01/22/19 22:44 87 126/75 01/22/19 22:35 81 18 98 01/22/19 20:00 98.5 F 81 20 126/75 98 01/22/19 19:21 81 01/22/19 17:58 95 01/22/19 13:33 97.3 F L 66 20 152/70 98 01/22/19 10:57 67 01/22/19 10:10 97.9 F 69 20 166/67 100 01/22/19 10:00 67 97 - Physical Examination General: No Apparent Distress, Cachectic HEENT: Positive: PERRL Neck: Positive: neck supple Cardiac: Positive: Reg Rate and Rhythm Extremities: Absent: edema - Labs and Meds Comprehensive Metabolic Panel 01/23/19 Range/Units 07:07 Sodium 141 (137-145) mmol/L Potassium 2.5 L* (3.6-5.0) mmol/L Chloride 101.0 (98-107) mmol/L Carbon Dioxide 25 (22-30) mmol/L BUN 86 H (9-20) mg/dL Creatinine 2.6 H (0.8-1.5) mg/dL Glucose 135 H (75-100) mg/dL Calcium 8.3 L (8.4-10.2) mg/dL
[2019-01-23] MEDS: COREG PO SCH (12:00)
[2019-01-23] MEDS: FLOMAX PO SCH (12:00)
[2019-01-23] MEDS: KEPPRA PO SCH (12:00)
[2019-01-23] MEDS: FLORINEF PO SCH (12:01)
[2019-01-23] MEDS: KCL 10MEQ/100ML 10 MEQ/100 ML BAG IV SCH ×4 (12:01→16:40)
[2019-01-23] MEDS: HEPARIN SUB-Q SCH (12:25)
[2019-01-23] MEDS: SODIUM BICARBONATE 150 MEQ in D5W 1,000 ML IV SCH (13:31)
--- NOTE | 2019-01-23 13:51 | Discharge Summary ---
Providers - Providers Date of Admission: 01/15/19 19:51 Attending physician: TRACEY ROTH MD 01/15/19 19:28 Consult to Physician [CONS] Urgent Comment: Dr. Smyth spoke with Dr. Sanchez @ [id number] Consulting Provider: WESTON WOMACK Physician Instructions: Reason For Exam: mónica 01/15/19 21:10 Consult to Dietitian/Nutrition [CONS] Routine Physician Instructions: Reason For Exam: feeding Reason for Consult: Poor oral intake 01/15/19 21:12 Occupational Therapy Evaluate and Treat [CONS] Routine Comment: Reason For Exam: debility Physical Therapy Evaluation and Treat [CONS] Routine Comment: Reason For Exam: debility 01/15/19 21:15 Consult to Physician [CONS] Routine Comment: Consulting Provider: ROMULO IYER Physician Instructions: Reason For Exam: urosepsis 01/15/19 21:28 Consult to Wound/ET Nurse [CONS] Routine Reason For Exam: wound eval 01/16/19 10:10 Consult to Physician [CONS] Routine Comment: Consulting Provider: DAIN VARGAS Physician Instructions: I notified Reason For Exam: ?exchange bright, known to you 01/17/19 05:35 Consult to Physician [CONS] Routine Comment: Consulting Provider: RICHARDSON FRENCH Physician Instructions: Reason For Exam: VT, cardiac eval Primary care physician: DETENTION DEPUTY Hospitalization Condition: Stable Hospital course: Patient is a 68-year-old man who is a resident of [facility] with a plethora of severe co-morbidities including hypertension, CVA with residuals, contracture upper and lower extremities, sacral pressure ulcer/osteomyelitis, bilateral lower extremity pressure ulcer, CAD, DM, seizure, COPD, dementia UTI, MDR PSA related to sacral wound, dementia with contractures/quadriplegia, hypertension, 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 * pCXR no acute findings, Acute respiratory failure -ABG reviewed -consulted pulmonology -d/c iv fluids, considering iv lasix but sbp is low Sepsis -Likely secondary to urinary tract infection -Blood Cultures pending -On IV abx -Gentle hydration with IVF -ID consulted, input noted, change iv rocephin to cefepime -Continue to monitor UTI -Urine WBC >182 -Urine culture pending, -urine culture contaminated -Start on IV Abx -bright changed by Dr. Sen on 01/16/19 Hypotension -IVF but carefully with CHF history MÓNICA, vasomotor nephropathy, ATN -Cr on admission 3.6 with GFR 20 -Baseline around 1.0 -Avoid nephrotoxic agents -Renal dose all meds -Nephrology consulted AND INPUT NOTED. Await sign of plateau and improvement prior to discharge Hyperkalemia -now hypokalemia- replace -Received hyperkalemic cocktail in ED Hx BPH -Bright catheter -disContinue Flomax due to hypotension- now resolved, bb was also held but restarted Hx Seizure disorder -continue Keppra Hypertension Hx of Pressure Ulcers -Sacral and BLE -Wound care consult pending DM 2 -POC BG monitoring -SSI coverage COPD -Albuterol prn Hx Dementia Hx CHF, EF 30-35% Hx CVA DVT PPX -stop Heparin acute on chronic anemia of chronic disease s/p 1 unit [facility], transfuse blood 01/17/19 monitor cbc closely poor prognosis Disposition: continue inpatient care, d/c back to [place] once renal clears Disposition: DC/[place]-[facility] SN[facility] CERT Exam - Constitutional Vitals: Temp Pulse Resp BP Pulse Ox 98.4 F 72 20 141/62 97 01/23/19 04:21 01/23/19 04:21 01/23/19 04:21 01/23/19 04:21 01/23/19 04:21 Plan Activity: advance as tolerated, fall precautions Diet: diabetic Special Instructions: record daily weights, record daily BP diary, record blood sugar diary Follow up with: ROSEANN WEBSTER MD [Staff Physician] - 3-5 Days TOSHIA SANCHEZ MD [Staff Physician] - 7 Days GLENNY SEN MD [Staff Physician] - 7 Days TERRI JUAREZ MD [Staff Physician] - 7 Days ALONZO RAMÍREZ MD [Staff Physician] - 7 Days Prescriptions: Carvedilol [Coreg] 12.5 mg PO BID #60 tablet
[2019-01-23] MEDS ORDERED: POTASSIUM CHLORIDE FEEDTUBE ONE (17:26)
[2019-01-23 18:24] VITALS: BP 135/66
== END 2019-01-23 20:15 | DRG 871 ==
LOC: ED 17:59 → 2B-ACE 19:51 → 4A 21:31
PROVIDERS: ADMIT Internal Medicine; ATTEND Internal Medicine
PROC: 4A033R1 Measurement of Arterial Saturation, Peripheral, Percutaneous Approach (ICD-10-PCS; 2019-01-16)
PROC: 30233N1 Transfusion of Nonautologous Red Blood Cells into Peripheral Vein, Percutaneous Approach (ICD-10-PCS; principal; 2019-01-17)
DX: A41.9 Sepsis, unspecified organism (principal); L89.023 Pressure ulcer of left elbow, stage 3; L89.013 Pressure ulcer of right elbow, stage 3; L89.153 Pressure ulcer of sacral region, stage 3; N17.0 Acute kidney failure with tubular necrosis; L89.224 Pressure ulcer of left hip, stage 4; L89.893 Pressure ulcer of other site, stage 3; J96.00 Acute respiratory failure, unspecified whether with hypoxia or hypercapnia; R53.2 Functional quadriplegia; N39.0 Urinary tract infection, site not specified; I47.1 Supraventricular tachycardia; E87.0 Hyperosmolality and hypernatremia; I13.0 Hypertensive heart and chronic kidney disease with heart failure and stage 1 through stage 4 chronic kidney disease, or unspecified chronic kidney disease; D62 Acute posthemorrhagic anemia; R64 Cachexia; I47.2 Ventricular tachycardia; I42.0 Dilated cardiomyopathy; I50.42 Chronic combined systolic (congestive) and diastolic (congestive) heart failure; N41.2 Abscess of prostate; F03.90 Unspecified dementia, unspecified severity, without behavioral disturbance, psychotic disturbance, mood disturbance, and anxiety; E87.5 Hyperkalemia; G40.909 Epilepsy, unspecified, not intractable, without status epilepticus; I48.0 Paroxysmal atrial fibrillation; I25.2 Old myocardial infarction; J44.9 Chronic obstructive pulmonary disease, unspecified; N40.0 Benign prostatic hyperplasia without lower urinary tract symptoms; N18.9 Chronic kidney disease, unspecified; E11.22 Type 2 diabetes mellitus with diabetic chronic kidney disease; N32.0 Bladder-neck obstruction; D64.9 Anemia, unspecified; I44.7 Left bundle-branch block, unspecified; I69.30 Unspecified sequelae of cerebral infarction; D63.8 Anemia in other chronic diseases classified elsewhere; Z88.8 Allergy status to other drugs, medicaments and biological substances; Z68.26 Body mass index [BMI] 26.0-26.9, adult; Z79.4 Long term (current) use of insulin
CPT/HCPCS: 36415; 36600; 71045; 76770; 80048; 80061; 81001; 82140; 82550; 82570; 82803; 82962; 83735; 84132; 84156; 84300; 84484; 84550; 85007; 85025; 85027; 85610; 85730; 86850; 86900; 86901; 86920; 87040; 87086; 93005; 93010; 94760; 96361; 96365; 96375; G0378; J0610; J0692; J0696; J1644; J1815; J2543; J3370; J3480; J7030; J7040; J7050; J7070; P9016

== ENCOUNTER 2019-01-29 16:44 | Inpatient (IN) | payer MEDICARE ==
[2019-01-29] MEDS ORDERED: NACL 0.9% 1000 ML 1,000 ML IV ONE (18:10)
--- NOTE | 2019-01-29 18:33 | Emergency Department Report ---
ED General Adult HPI - General Chief complaint: Recheck/Abnormal Lab/Rx Stated complaint: ABNORMAL LAB Time Seen by Provider: 01/29/19 18:04 Source: EMS, RN notes reviewed Mode of arrival: Stretcher Limitations: Altered Mental Status, Physical Limitation - History of Present Illness Initial comments: Patient is 68 years old male, residential patient, this patient is familiar to me since I saw him several times before. Patient has history of CVA, very contracted, dementia, seizure, congestive heart failure and diabetes. Patient was sent from the residential via EMS for evaluation of abnormal labs. Patient is not communicating so unable to obtain more history. Most history is from residential records and previous medical records. - Related Data Home Medications Medication Instructions Recorded Confirmed Last Taken Multivit-Min/Iron Fum/Folic AC 1 each PO DAILY 03/24/18 01/19/19 12/29/18 [Qfazg-Upnsimq-Byddptth Tablet] Acetaminophen 650 mg NGTUBE Q6H PRN 07/30/18 01/19/19 12/29/18 Ipratropium/Albuterol Sulfate 1 ampul IH BID 07/30/18 01/19/19 12/29/18 [DUONEB *Not for PRN Use*] Tamsulosin [Flomax] 0.4 mg PO QDAY 07/30/18 01/19/19 01/19/19 10:00 Vit C/Ascorbate Calcium,Sodium 500 mg NGTUBE BID 07/30/18 01/19/19 12/29/18 [Vitamin C 500 mg/15 ml Liquid] Zinc Sulfate 220 mg NGTUBE QDAY 07/30/18 01/19/19 12/29/18 levETIRAcetam [Keppra INJ] 500 mg PO Q12H 07/30/18 01/19/19 01/19/19 13:55 Insulin Aspart [NovoLOG 100 0 unit SQ AC 11/01/18 01/19/19 12/29/18 UNITS/ML VIAL] Previous Rx's Medication Instructions Recorded Last Taken Type Phosphorus #1 [K-Phos Neutral] 250 mg PO QID #30 tablet 08/23/18 12/29/18 Rx AtorvaSTATin [Lipitor] 40 mg NGTUBE QHS #30 tablet 10/21/18 12/29/18 Rx ALBUTEROL NEB's [Proventil 0.083% 2.5 mg IH Q3HRT PRN nebu 12/27/18 12/29/18 Rx NEBS] Cefuroxime Axetil [Ceftin] 500 mg PO Q12H #140 ml 01/02/19 Unknown Rx Carvedilol [Coreg] 12.5 mg PO BID #60 tablet 01/23/19 Unknown Rx Allergies Allergy/AdvReac Type Severity Reaction Status Date / Time lisinopril Allergy Unknown Verified 10/01/18 15:17 tramadol Allergy Unknown Verified 07/29/18 18:39 ED Review of Systems ROS: Stated complaint: ABNORMAL LAB Other details as noted in HPI Comment: Unobtainable due to pts medical conditions ED Past Medical Hx - Past Medical History Hx Hypertension: Yes Hx CVA: Yes Hx Heart Attack/AMI: Yes Hx Congestive Heart Failure: Yes Hx Diabetes: Yes Hx Deep Vein Thrombosis: No Hx Pulmonary Embolism: No Hx GERD: No Hx Liver Disease: No Hx Renal Disease: No Hx Sickle Cell Disease: No Hx Arthritis: Yes Hx Headaches / Migraines: No Hx Seizures: Yes Hx Kidney Stones: Yes Hx Psychiatric Treatment: Yes (Dementia) Hx Asthma: No Hx COPD: Yes Hx Tuberculosis: No Hx Dementia: Yes Hx HIV: No Additional medical history: Benign prostatic hypertrophy - Surgical History Hx Coronary Stent: No Hx Open Heart Surgery: No Hx Pacemaker: No Hx Internal Defibrillator: No Hx Cholecystectomy: No Hx Appendectomy: No Hx Breast Surgery: No Additional Surgical History: debridement of sacral wound, gastrostomy - Social History Smoking Status: Unknown if ever smoked - Medications Home Medications: Home Medications Medication Instructions Recorded Confirmed Last Taken Type Multivit-Min/Iron Fum/Folic AC 1 each PO DAILY 03/24/18 01/19/19 12/29/18 History [Skojf-Oqobwye-Stvvzxid Tablet] Acetaminophen 650 mg NGTUBE Q6H PRN 07/30/18 01/19/19 12/29/18 History Ipratropium/Albuterol Sulfate 1 ampul IH BID 07/30/18 01/19/19 12/29/18 History [DUONEB *Not for PRN Use*] Tamsulosin [Flomax] 0.4 mg PO QDAY 07/30/18 01/19/19 01/19/19 10:00 History Vit C/Ascorbate Calcium,Sodium 500 mg NGTUBE BID 07/30/18 01/19/19 12/29/18 History [Vitamin C 500 mg/15 ml Liquid] Zinc Sulfate 220 mg NGTUBE QDAY 07/30/18 01/19/19 12/29/18 History levETIRAcetam [Keppra INJ] 500 mg PO Q12H 07/30/18 01/19/19 01/19/19 13:55 History Phosphorus #1 [K-Phos Neutral] 250 mg PO QID #30 tablet 08/23/18 01/19/19 12/29/18 Rx AtorvaSTATin [Lipitor] 40 mg NGTUBE QHS #30 tablet 10/21/18 01/19/19 12/29/18 Rx Insulin Aspart [NovoLOG 100 0 unit SQ AC 11/01/18 01/19/19 12/29/18 History UNITS/ML VIAL] ALBUTEROL NEB's [Proventil 0.083% 2.5 mg IH Q3HRT PRN nebu 12/27/18 01/19/19 12/29/18 Rx NEBS] Cefuroxime Axetil [Ceftin] 500 mg PO Q12H #140 ml 01/02/19 01/19/19 Unknown Rx Carvedilol [Coreg] 12.5 mg PO BID #60 tablet 01/23/19 Unknown Rx ED Physical Exam - General Limitations: Altered Mental Status, Physical Limitation General appearance: alert, in no apparent distress - Head Head exam: Present: atraumatic, normocephalic, normal inspection - Eye Eye exam: Present: normal appearance, PERRL - ENT ENT exam: Present: normal exam, normal orophraynx, mucous membranes moist - Neck Neck exam: Present: normal inspection, full ROM. Absent: tenderness, meningismus, lymphadenopathy, thyromegaly - Respiratory Respiratory exam: Present: normal lung sounds bilaterally - Cardiovascular Cardiovascular Exam: Present: regular rate, normal rhythm, normal heart sounds - GI/Abdominal GI/Abdominal exam: Present: soft, normal bowel sounds. Absent: distended, tenderness, guarding, rebound, rigid, organomegaly, mass, bruit, pulsatile mass - Back Exam Back exam: Absent: CVA tenderness (R), CVA tenderness (L) - Neurological Exam Neurological exam: Present: alert - Skin Skin exam: Present: warm ED Course Vital Signs 01/29/19 18:40 Temperature 100.5 F H Pulse Rate 100 H Respiratory 20 Rate Blood Pressure 159/82 [Right] O2 Sat by Pulse 97 Oximetry ED Medical Decision Making - Lab Data Result diagrams: 01/29/19 19:30 01/29/19 19:30 - Radiology Data Radiology results: report reviewed - Medical Decision Making Patient is 68 years old male, residential patient, this patient is familiar to me since I saw him several times before. Patient has history of CVA, very contracted, dementia, seizure, congestive heart failure and diabetes. Patient was sent from the residential via EMS for evaluation of abnormal labs. Patient is not communicating so unable to obtain more history. Most history is from residential records and previous medical records. Patient found to be in acute on chronic renal failure. Hemoglobin is 6.8, patient received 1 units of PRBC. Chest x-ray show pneumonia patient treated wi Zosyn. I discussed the patient was , he advised to continue rehydration and he will follow-up with the patient in the morning. Discussed the patient is Dr. Kitty Connor, Sara agreed to admit the patient to medical service. Critical Care Time: Yes Critical care time in (mins) excluding proc time.: 30 Critical care attestation.: If time is entered above; I have spent that time in minutes in the direct care of this critically ill patient, excluding procedure time. ED Disposition Clinical Impression: Hyperkalemia, Acute renal failure, Pneumonia, Anemia, Sepsis Disposition: OP ADMIT IP TO THIS HOSP Is pt being admited?: Yes Condition: Stable Instructions: Bacterial Pneumonia (ED) Referrals: RAMSEY PORTILLO MD [Primary Care Provider] - 3-5 Days
--- NOTE | 2019-01-29 18:58 | XRay Report ---
CHEST 1 VIEW INDICATION / CLINICAL INFORMATION: sepsis. COMPARISON: 01/20/2019 and 01/17/2019 FINDINGS: The patient's head obscures the right upper chest SUPPORT DEVICES: There is a linear radiopaque structure which projects over the upper chest which was not present on the prior study. This appears to be a tube I am not certain if this is in the patient or on the patient. It does not appear to be in the airway does not appear to be an endotracheal tube . HEART / MEDIASTINUM: Unchanged LUNGS / PLEURA: The right lung is partially obscured by the patient's head.. There is some airspace o pacity in the right midlung zone No pneumothorax. ADDITIONAL FINDINGS: The left lung appears unchanged IMPRESSION: 1. Linear radiopaque structure projects over the mediastinum not certain of the nature of this object . There is airspace opacity in the right midlung zone. Signer Name: Cody Jensen MD Signed: 01/29/2019 6:54 PM Workstation Name: [id number]
[2019-01-29 20:00] LABS: Basophils # (Auto) 0.1 K/mm3 (0.0-0.1); Basophils % (Auto) 0.7 % (0.0-1.8); Eosinophils # (Auto) 0.2 K/mm3 (0.0-0.4); Eosinophils % (Auto) 1.9 % (0.0-4.3); Hematocrit 21.4 % (35.5-45.6); Hemoglobin 6.8 gm/dl (11.8-15.2); Lymphocytes # (Auto) 0.8 K/mm3 (1.2-5.4); Lymphocytes % (Auto) 6.4 % (13.4-35.0); Mean Corpuscular HGB Conc 32 % (32-34); Mean Corpuscular Volume 86 fl (84-94); Monocytes # (Auto) 1.2 K/mm3 (0.0-0.8); Monocytes % (Auto) 9.3 % (0.0-7.3); Platelet Count 336 K/mm3 (140-440); Red Cell Distribution Width 19.1 % (13.2-15.2)
[2019-01-29 20:16] LABS: Alanine Aminotransferase 13 units/L (7-56); Albumin 1.7 g/dL (3.9-5); BUN/Creatinine Ratio 32; Blood Urea Nitrogen 107 mg/dL (9-20); Calcium 8.9 mg/dL (8.4-10.2); Hemolysis Index 8
[2019-01-29] MEDS ORDERED: NACL 0.9% 500 ML 500 ML IV ONE (20:28)
[2019-01-29] MEDS ORDERED: TYLENOL PR ONE (20:36)
[2019-01-29] MEDS ORDERED: HumuLIN R IV ONE (20:37)
[2019-01-29] MEDS ORDERED: D50W (25GM) Vial IV ONE (20:37)
[2019-01-29] MEDS ORDERED: CALCIUM CHLORIDE 1,000 MG in NACL 0.9% 100 ML IV ONE (20:37)
[2019-01-29] MEDS ORDERED: ZOSYN/NS 3.375GM/50ML 3.375 GM/50 ML BAG IV ONE (21:00)
[2019-01-29] MEDS ORDERED: D50W (25GM) Syringe IV ONE (21:09)
[2019-01-29 22:53] LABS: Bacteria,Urine 1+ /HPF (Negative); Bilirubin,Urine NEG (Negative); Blood,Urine NEG (Negative); Color,Urine Yellow (Yellow); Mucus,Urine FEW /HPF; Urobilinogen,Urine < 2.0 mg/dL (<2.0)
[2019-01-29] MEDS ORDERED: NACL 0.45% 1000 ML 1,000 ML IV SCH (23:00)
[2019-01-29] MEDS ORDERED: TYLENOL PO PRN (23:15)
[2019-01-29] MEDS ORDERED: SODIUM CHLORIDE FLUSH SYRINGE 10 ML IV PRN (23:15)
[2019-01-29] MEDS ORDERED: ZOFRAN IV PRN (23:15)
[2019-01-29] MEDS ORDERED: PROVENTIL IH PRN (23:19)
--- NOTE | 2019-01-30 | History and Physical Report ---
<MAN LIANG - Last Filed: 01/29/19 23:56> History of Present Illness Date of examination: 01/29/19 Date of admission: 01/29/19 22:10 Chief complaint: Evaluation of abnormal labs History of present illness: 68-year-old male who is a resident of [facility] with history of hypertension, CVA, BPH, CHF, contracture upper and lower extremities, sacral pressure ulcer, bilateral lower extremity pressure ulcer, CAD, DM, seizure, COPD, dementia who presents to [facility] ED for evaluation of abnormal labs. At the time of my examination patient is unable to communicate. History is taken from medical records and EMS report. Past History Past Medical History: anemia, COPD, diabetes, hypertension, renal failure, seizures, stroke, other (contractures, chronic debility, dementia, BPH, recurrent UTI, chronic indwelling Chaudhary catheter, arthritis, kidney stones) Past Surgical History: Other (debridement of sacral wound, gastrostomy) Social history: lives with family (Resident of [facility]) Family history: no significant family history Medications and Allergies Allergies Allergy/AdvReac Type Severity Reaction Status Date / Time lisinopril Allergy Unknown Verified 10/01/18 15:17 tramadol Allergy Unknown Verified 07/29/18 18:39 Home Medications Medication Instructions Recorded Confirmed Last Taken Type Multivit-Min/Iron Fum/Folic AC 1 each PO DAILY 03/24/18 01/19/19 12/29/18 Histor y [Twixo-Twlatzr-Qynuzsal Tablet] Acetaminophen 650 mg NGTUBE Q6H PRN 07/30/18 01/19/19 12/29/18 History Ipratropium/Albuterol Sulfate 1 ampul IH BID 07/30/18 01/19/19 12/29/18 History [DUONEB *Not for PRN Use*] Tamsulosin [Flomax] 0.4 mg PO QDAY 07/30/18 01/19/19 01/19/19 10:00 History Vit C/Ascorbate Calcium,Sodium 500 mg NGTUBE BID 07/30/18 01/19/19 12/29/18 History [Vitamin C 500 mg/15 ml Liquid] Zinc Sulfate 220 mg NGTUBE QDAY 07/30/18 01/19/19 12/29/18 History levETIRAcetam [Keppra INJ] 500 mg PO Q12H 07/30/18 01/19/19 01/19/19 13:55 History Phosphorus #1 [K-Phos Neutral] 250 mg PO QID #30 tablet 08/23/18 01/19/19 12/29/18 Rx AtorvaSTATin [Lipitor] 40 mg NGTUBE QHS #30 tablet 10/21/18 01/19/19 12/29/18 Rx Insulin Aspart [NovoLOG 100 0 unit SQ AC 11/01/18 01/19/19 12/29/18 History UNITS/ML VIAL] ALBUTEROL NEB's [Proventil 0.083% 2.5 mg IH Q3HRT PRN nebu 12/27/18 01/19/19 12/29/18 Rx NEBS] Cefuroxime Axetil [Ceftin] 500 mg PO Q12H #140 ml 01/02/19 01/19/19 Unknown Rx Carvedilol [Coreg] 12.5 mg PO BID #60 tablet 01/23/19 Unknown Rx Active Meds: Active Medications Acetaminophen (Tylenol) 650 mg PO Q4H PRN PRN Reason: Pain MILD(1-3)/Fever >100.5/PRICE Albuterol (Proventil) 2.5 mg IH Q3HRT PRN PRN Reason: Shortness Of Breath Albuterol/Ipratropium (Duoneb *Not For Prn Use*) 1 ampul IH BIDRT NORA Ascorbic Acid (Vitamin C) 500 mg FEEDTUBE BID NORA Atorvastatin Calcium (Lipitor) 40 mg FEEDTUBE QHS [facility] Carvedilol (Coreg) 12.5 mg PO BID NORA Sodium Chloride (Nacl 0.45% 1000 Ml) 1,000 mls @ 50 mls/hr IV DIRECT NORA Cefepime HCl (Maxipime/Ns 1 Gm/100 Ml) 1 gm in 100 mls @ 200 mls/hr IV Q12H [facility]A; Protocol Levetiracetam (Keppra) 500 mg FEEDTUBE Q12H [facility]A Multivitamins (Centrum Liq) 5 ml PO DAILY [facility] Ondansetron HCl (Zofran) 4 mg IV Q4H PRN PRN Reason: Nausea And Vomiting Sodium Chloride (Sodium Chloride Flush Syringe 10 Ml) 10 ml IV BID [facility] Sodium Chloride (Sodium Chloride Flush Syringe 10 Ml) 10 ml IV PRN PRN PRN Reason: LINE FLUSH Tamsulosin HCl (Flomax) 0.4 mg PO QDAY [facility]A Zinc Sulfate (Zinc Sulfate) 220 mg PO QDAY [facility] Review of Systems ROS unobtainable: due to mental status Exam - Physical Exam Narrative exam: Physical exam General appearance: Present: No apparent distress, awake, contracted, chronically ill apparent adult male - EENT Eyes: Present: PERRL ENT: hearing intact, poor dentition - Neck Neck: Present: supple, normal ROM - Respiratory Respiratory effort: Non-labored, on supplemental oxygen Respiratory: diminished bases - Cardiovascular Heart rate: 94(bpm) Rhythm: SR, LBBB Heart Sounds: Present: S1 & S2. Absent: rub, click - Extremities Extremities: no ischemia, pulses intact, abnormal (contracture in extremities x4) - Peripheral Assessment Peripheral Pulses: within normal limits - Abdominal General gastrointestinal: soft, non-tender, normal bowel sounds, PEG tube - Integumentary Integumentary: Present: warm, sacral pressure ulcer, left lower extremity pressure ulcers - Musculoskeletal Musculoskeletal: generalized weakness, contracture in extremities x4 -Neurological Neurological: awake, unable to fully assess - Psychiatric Psychiatric: unable to assess - Constitutional Vitals: Temp Pulse Resp BP Pulse Ox 100.5 F H 94 H 26 H 151/74 97 01/29/19 18:40 01/29/19 22:21 01/29/19 22:21 01/29/19 22:21 01/29/19 18:40 Results - Labs CBC & Chem 7: 01/29/19 19:30 01/29/19 19:30 Labs: Laboratory Last Values WBC 13.1 K/mm3 (4.5-11.0) H 01/29/19 19:30 RBC 2.50 M/mm3 (3.65-5.03) L 01/29/19 19:30 Hgb 6.8 gm/dl (11.8-15.2) L 01/29/19 19:30 Hct 21.4 % (35.5-45.6) L 01/29/19 19:30 MCV 86 fl (84-94) 01/29/19 19:30 MCH 27 pg (28-32) L 01/29/19 19:30 MCHC 32 % (32-34) 01/29/19 19:30 RDW 19.1 % (13.2-15.2) H 01/29/19 19:30 Plt Count 336 K/mm3 (140-440) 01/29/19 19:30 Lymph % (Auto) 6.4 % (13.4-35.0) L 01/29/19 19:30 Dent % (Auto) 9.3 % (0.0-7.3) H 01/29/19 19:30 Eos % (Auto) 1.9 % (0.0-4.3) 01/29/19 19:30 Baso % (Auto) 0.7 % (0.0-1.8) 01/29/19 19:30 Lymph # 0.8 K/mm3 (1.2-5.4) L 01/29/19 19:30 Dent # 1.2 K/mm3 (0.0-0.8) H 01/29/19 19:30 Eos # 0.2 K/mm3 (0.0-0.4) 01/29/19 19:30 Baso # 0.1 K/mm3 (0.0-0.1) 01/29/19 19:30 Seg Neutrophils % 81.7 % (40.0-70.0) H 01/29/19 19:30 Seg Neutrophils # 10.7 K/mm3 (1.8-7.7) H 01/29/19 19:30 Sodium 147 mmol/L (137-145) H 01/29/19 19:30 Potassium 5.9 mmol/L (3.6-5.0) H 01/29/19 19:30 Chloride 102.3 mmol/L (98-107) 01/29/19 19:30 Carbon Dioxide 30 mmol/L (22-30) 01/29/19 19:30 21 mmol/L 01/29/19 19:30 BUN 107 mg/dL (9-20) H 01/29/19 19:30 3.3 mg/dL (0.8-1.5) H 01/29/19 19:30 Estimated GFR 23 ml/min 01/29/19 19:30 32 % 01/29/19 19:30 Glucose 85 mg/dL (75-100) 01/29/19 19:30 Lactic Acid 0.80 mmol/L (0.7-2.0) 01/29/19 21:00 Calcium 8.9 mg/dL (8.4-10.2) 01/29/19 19:30 < 0.20 mg/dL (0.1-1.2) 01/29/19 19:30 AST 25 units/L (5-40) 01/29/19 19:30 ALT 13 units/L (7-56) 01/29/19 19:30 115 units/L (35-129) 01/29/19 19:30 7.0 g/dL (6.3-8.2) 01/29/19 19:30 1.7 g/dL (3.9-5) L 01/29/19 19:30 0.3 % 01/29/19 19:30 Yellow (Yellow) 01/29/19 22:15 Slightly-cloudy (Clear) 01/29/19 22:15 9.0 (5.0-7.0) H 01/29/19 22:15 Ur Specific [place] 1.012 (1.003-1.030) 01/29/19 22:15 100 mg/dl mg/dL (Negative) 01/29/19 22:15 Neg mg/dL (Negative) 01/29/19 22:15 Neg mg/dL (Negative) 01/29/19 22:15 Neg (Negative) 01/29/19 22:15 Neg (Negative) 01/29/19 22:15 Neg (Negative) 01/29/19 22:15 < 2.0 mg/dL (<2.0) 01/29/19 22:15 Ur Leukocyte Esterase Sm (Negative) 01/29/19 22:15 41.0 /HPF (0.0-6.0) H 01/29/19 22:15 20.0 /HPF (0.0-6.0) 01/29/19 22:15 U Epithel Cells (Auto) < 1.0 /HPF (0-13.0) 01/29/19 22:15 1+ /HPF (Negative) 01/29/19 22:15 Few /HPF 01/29/19 22:15 3+ /HPF 01/29/19 22:15 Blood Type O POSITIVE 01/29/19 20:50 Antibody Screen Negative 01/29/19 20:50 Crossmatch See Detail 01/29/19 20:50 - Imaging and Cardiology Imaging and Cardiology: CXR: FINDINGS: The patient's head obscures the right upper chest SUPPORT DEVICES: There is a linear radiopaque structure which projects over the upper chest which was not present on the prior study. This appears to be a tube I am not certain if this is in the patient or on the patient. It does not appear to be in the airway does not appear to be an endotracheal tube. HEART / MEDIASTINUM: Unchanged LUNGS / PLEURA: The right lung is partially obscured by the patient's head.. There is some airspace opacity in the right midlung zone No pneumothorax. ADDITIONAL FINDINGS: The left lung appears unchanged IMPRESSION: 1. Linear radiopaque structure projects over the mediastinum not certain of the nature of this object. There is airspace opacity in the right midlung zone. Assessment and Plan Assessment and plan: 68-year-old male who is a resident of [facility] with history of hypertension, CVA, BPH, CHF, contracture upper and lower extremities, sacral pressure ulcer, bilateral lower extremity pressure ulcer, CAD, DM, seizure, COPD, dementia who presents to [facility] ED for evaluation of abnormal labs. Pneumonia -CXR shows opacity in the right midlung zone -Cultures pending -On IV Abx -ID consulted Leukocytosis -likely secondary to pneumonia -WBC 13.1 -TMAX 100.5 -Cultures pending -On IV abx Chronic anemia -Hbg on admission 6.8 -No s/s of active bleeding -Receiving 1u PRBC -Continue to monitor hgb -Transfuse prn MÓNICA -Imposed CKD -Cr on admission 3.3 ( up from 2.6 on 01/23/19) -Baseline around 1.0 -Avoid nephrotoxic agents -Gentle hydration with IVF -Renal dose all meds -Nephrology consulted Hyperkalemia -Potassium on admission 6.8 -Received hyperkalemic cocktail in ED -Repeat labs pending -Nephrology following Hx BPH -Chaudhary catheter -Continue Flomax Hx Seizure disorder -continue Keppra Hypertension -Continue to monitor BP -Continue Coreg Hx of Pressure Ulcers -Sacral and BLE -Wound care consult pending DM 2 -POC BG monitoring -SSI coverage COPD -Albuterol prn Chronic debility -Contracture of extremities x4 -PT/OT eval pending Moderate to severe malnutrition -Albumin 1.7 -Pt has PEG Tube -Dietitian consulted for mgmt of TF Hx Dementia Hx CHF Hx CVA DVT PPX -SCD's Advance Directives: No VTE prophylaxis?: Mechanical Plan of care discussed with patient/family: Yes <LUBNA LICEA - Last Filed: 01/30/19 06:03> History of Present Illness Date of admission: 01/29/19 22:10 Medications and Allergies Active Meds: Active Medications Acetaminophen (Tylenol) 650 mg PO Q4H PRN PRN Reason: Pain MILD(1-3)/Fever >100.5/PRICE Albuterol (Proventil) 2.5 mg IH Q3HRT PRN PRN Reason: Shortness Of Breath Albuterol/Ipratropium (Duoneb *Not For Prn Use*) 1 ampul IH BIDRT [facility] Ascorbic Acid (Vitamin C) 500 mg FEEDTUBE BID [facility]A Atorvastatin Calcium (Lipitor) 40 mg FEEDTUBE QHS [facility] Carvedilol (Coreg) 12.5 mg PO BID [facility]A Sodium Chloride (Nacl 0.45% 1000 Ml) 1,000 mls @ 50 mls/hr IV DIRECT [facility]A Cefepime HCl (Maxipime/Ns 2 Gm/100 Ml) 2 gm in 100 mls @ 200 mls/hr IV Q12H [facility]; Protocol Levetiracetam (Keppra) 500 mg FEEDTUBE Q12H [facility] Last Admin: 01/30/19 02:01 Dose: 500 mg Documented by: Multivitamins (Centrum Liq) 5 ml PO DAILY NORA Ondansetron HCl (Zofran) 4 mg IV Q4H PRN PRN Reason: Nausea And Vomiting Sodium Chloride (Sodium Chloride Flush Syringe 10 Ml) 10 ml IV BID NORA Sodium Chloride (Sodium Chloride Flush Syringe 10 Ml) 10 ml IV PRN PRN PRN Reason: LINE FLUSH Tamsulosin HCl (Flomax) 0.4 mg PO QDAY NORA Zinc Sulfate (Zinc Sulfate) 220 mg PO QDAY NORA Exam - Constitutional Vitals: Temp Pulse Resp BP Pulse Ox 97.8 F 98 H 20 142/78 97 01/30/19 05:28 01/30/19 05:28 01/30/19 05:28 01/30/19 05:28 01/29/19 18:40 Results - Labs CBC & Chem 7: 01/29/19 19:30 01/29/19 23:38 Labs: Laboratory Last Values WBC 13.1 K/mm3 (4.5-11.0) H 01/29/19 19:30 RBC 2.50 M/mm3 (3.65-5.03) L 01/29/19 19:30 Hgb 6.8 gm/dl (11.8-15.2) L 01/29/19 19:30 Hct 21.4 % (35.5-45.6) L 01/29/19 19:30 MCV 86 fl (84-94) 01/29/19 19:30 MCH 27 pg (28-32) L 01/29/19 19: MCHC 32 % (32-34) 01/29/19 19: RDW 19.1 % (13.2-15.2) H 01/29/19 19:30 Plt Count 336 K/mm3 (140-440) 01/29/19 19:30 Lymph % (Auto) 6.4 % (13.4-35.0) L 01/29/19 19:30 Dent % (Auto) 9.3 % (0.0-7.3) H 01/29/19 19:30 Eos % (Auto) 1.9 % (0.0-4.3) 01/29/19 19: Baso % (Auto) 0.7 % (0.0-1.8) 01/29/19 19:30 Lymph # 0.8 K/mm3 (1.2-5.4) L 01/29/19 19:30 Dent # 1.2 K/mm3 (0.0-0.8) H 01/29/19 19:30 Eos # 0.2 K/mm3 (0.0-0.4) 01/29/19 19:30 Baso # 0.1 K/mm3 (0.0-0.1) 01/29/19 19:30 Seg Neutrophils % 81.7 % (40.0-70.0) H 01/29/19 19:30 Seg Neutrophils # 10.7 K/mm3 (1.8-7.7) H 01/29/19 19:30 Sodium 146 mmol/L (137-145) H 01/29/19 23:38 Potassium 6.1 mmol/L (3.6-5.0) H* 01/29/19 23:38 Chloride 102.7 mmol/L (98-107) 01/29/19 23:38 Carbon Dioxide 30 mmol/L (22-30) 01/29/19 23:38 19 mmol/L 01/29/19 23:38 BUN 111 mg/dL (9-20) H 01/29/19 23:38 3.5 mg/dL (0.8-1.5) H 01/29/19 23:38 Estimated GFR 21 ml/min 01/29/19 23:38 32 % 01/29/19 23:38 Glucose 84 mg/dL (75-100) 01/29/19 23:38 Lactic Acid 0.80 mmol/L (0.7-2.0) 01/29/19 21:00 Calcium 9.3 mg/dL (8.4-10.2) 01/29/19 23:38 < 0.20 mg/dL (0.1-1.2) 01/29/19 19:30 AST 25 units/L (5-40) 01/29/19 19:30 ALT 13 units/L (7-56) 01/29/19 19:30 115 units/L (35-129) 01/29/19 19:30 7.0 g/dL (6.3-8.2) 01/29/19 19:30 1.7 g/dL (3.9-5) L 01/29/19 19:30 0.3 % 01/29/19 19:30 Yellow (Yellow) 01/30/19 03:30 Clear (Clear) 01/30/19 03:30 9.0 (5.0-7.0) H 01/30/19 03:30 Ur Specific [place] 1.013 (1.003-1.030) 01/30/19 03:30 100 mg/dl mg/dL (Negative) 01/30/19 03:30 Neg mg/dL (Negative) 01/30/19 03:30 Neg mg/dL (Negative) 01/30/19 03:30 Neg (Negative) 01/30/19 03:30 Neg (Negative) 01/30/19 03:30 Neg (Negative) 01/30/19 03:30 < 2.0 mg/dL (<2.0) 01/30/19 03:30 Ur Leukocyte Esterase Tr (Negative) 01/30/19 03:30 7.0 /HPF (0.0-6.0) H 01/30/19 03:30 5.0 /HPF (0.0-6.0) 01/30/19 03:30 U Epithel Cells (Auto) < 1.0 /HPF (0-13.0) 01/29/19 22:15 1+ /HPF (Negative) 01/30/19 03:30 Few /HPF 01/30/19 03:30 1+ /HPF 01/30/19 03:30 Blood Type O POSITIVE 01/29/19 20:50 Antibody Screen Negative 01/29/19 20:50 Crossmatch See Detail 01/29/19 20:50 Assessment and Plan Assessment and plan: 68 year old man , resident of [facility] with hypertension, CVA, BPH, Diastolic CHF, Contracture, Sacral Decubitus and lower extremities Ulcers, coronary artery disease, diabetes, Seizure Disorder, COPD, Dementia was sent to the emergency room because normal BUN/creatinine. The patient is non-verbal, unable to give a history. Kayexalate given for hyperkalemia, agree with plan as stated above. follow potassium
[2019-01-30 00:09] LABS: Calcium 9.3 mg/dL (8.4-10.2)
[2019-01-30] MEDS ORDERED: VANCOMYCIN 2,000 MG in NACL 0.9% 500 ML 500 ML IV ONE (01:00)
[2019-01-30] MEDS ORDERED: VANCOMYCIN PHARMACY TO DOSE IV SCH (01:00)
[2019-01-30] MEDS: KEPPRA FEEDTUBE SCH (02:01)
[2019-01-30] MEDS ORDERED: KIONEX PO ONE (03:49)
--- NOTE | 2019-01-30 03:53 | Ultrasound Report ---
ULTRASOUND RENAL INDICATION: arf COMPARISON: No relevant prior imaging study available. FINDINGS: RIGHT KIDNEY: Size: 12.1 cm. Echogenicity: Increased. Cortical thickness: Normal. Stones: None. Hydronephrosis: None. Cyst or mass: Several cysts are seen measuring up to 2.8 cm. No solid masses are noted.. LEFT KIDNEY: Size: 11.6 cm. Echogenicity: Increased. Cortical thickness: Normal. Stones: None. Hydronephrosis: None. Cyst or mass: Multiple small cysts are seen measuring up to 14 mm. No solid lesions are seen.. Urinary Bladder: Decompressed by Chaudhary catheter. Free Fluid: None. Additional Findings: None. IMPRESSION: 1. No acute sonographic abnormality of the kidneys 2. Increased echogenicity is seen in both kidneys as can be seen with renal failure but no cortical t hinning is noted 3. Bilateral small renal cysts Signer Name: Chin Culp MD Signed: 01/30/2019 3:49 AM Workstation Name: [email or web address]
[2019-01-30] MEDS ORDERED: NACL 0.9% 500 ML 500 ML IV ONE (04:00)
[2019-01-30 04:14] LABS: Bacteria,Urine 1+ /HPF (Negative); Bilirubin,Urine NEG (Negative); Blood,Urine NEG (Negative); Color,Urine Yellow (Yellow); Mucus,Urine FEW /HPF; Urobilinogen,Urine < 2.0 mg/dL (<2.0)
[2019-01-30] MEDS ORDERED: MAXIPIME/NS 1 GM/100 ML 1 GM/100 ML BAG IV SCH (06:00)
[2019-01-30] MEDS ORDERED: MAXIPIME/NS 2 GM/100 ML 2 GM/100 ML BAG IV SCH (06:00)
--- NOTE | 2019-01-30 07:39 | Event Note ---
Date: 01/30/19 Nephrology consult was changed to Dr Sanchez's group.
[2019-01-30 09:12] LABS: Basophils # (Auto) 0.1 K/mm3 (0.0-0.1); Eosinophils # (Auto) 0.2 K/mm3 (0.0-0.4); Eosinophils % (Auto) 1.3 % (0.0-4.3); Hematocrit 23.9 % (35.5-45.6); Hemoglobin 7.7 gm/dl (11.8-15.2); Lymphocytes # (Auto) 1.1 K/mm3 (1.2-5.4); Lymphocytes % (Auto) 8.7 % (13.4-35.0); Mean Corpuscular HGB Conc 32 % (32-34); Mean Corpuscular Volume 86 fl (84-94); Monocytes # (Auto) 0.9 K/mm3 (0.0-0.8); Monocytes % (Auto) 7.5 % (0.0-7.3); Platelet Count 358 K/mm3 (140-440); Red Blood Count 2.79 M/mm3 (3.65-5.03); Red Cell Distribution Width 18.3 % (13.2-15.2)
--- NOTE | 2019-01-30 09:38 | Consultation ---
History of Present Illness - History of Present Illness My assessment and plan are as follows Renal failure: Moderately severe admitted with hyperkalemia, there has been no significant improvement in kidney function since December 2018 Patient requires further workup of renal failure baseline creatinine was fairly normal early December 2018 Will look for any reversible causes there is no emergent indication for renal replacement therapy, patient is not a suitable candidate for long-term dialysis in my opinion Will order for all the renal related labs, order for a PSA, immunofixation and all the other labs pertinent to renal failure Patient's hyperkalemia has not responded to medical treatment and hence we'll consider giving him at least 1 or 2 hemodialysis treatment Consult vascular surgery, for a vas cath placement Renal ultrasonogram already shows evidence of echogenic kidneys Urine needs to be cultured he does have budding yeast Did try to call patient's daughter Miss Posey at [phone], was unable to reach overhead to leave a Also tried to call her on [phone], had to leave message to call me We'll continue to follow and make recommendation from renal standpoint If you have any questions please feel free to contact me at [phone] Jaya Sanchez M.D. [facility] [address] [facility] [place] [address] History of presenting illness Patient is a 68-year-old -[place]aysian male who has been admitted here again since yesterday, patient does have history of acute and chronic renal failure, and upon admission was noted to have a potassium of 5.9 with a BUN of 107 and creatinine of 3.3 Patient has been treated for hyperkalemia without much success Currently his sodium is 150 with a potassium of 5.9 yesterday was 6.1 creatinine is still around 3.5 Review of the old records shows that patient's creatinine was 1.4 and December 2018 however since 01/15/2019 his creatinine has been staying around 3.6 without any further improvement Is also anemic hemoglobin is currently 7.7 which was 6.8 yesterday platelet count is normal Protein creatinine ratio is 3.6 g obtained 01/16/2019 no urine eosinophil was noted PSA was 4.36, in June 2017 which was 54 and September 2013 His iron saturation was 11% in April 2018 uric acid was 7.3 in December 2018 Past medical history significant for Renal failure Hyperkalemia CVA Dementia Seizure disorder Congestive heart failure Diabetes Current allergies: Lisinopril, tramadol Home medication present medication: Reviewed Social history: Patient is a resident of [facility] living Family history: Reviewed from the chart Review of systems unable to obtain, due to altered mental status Physical examination: General: No acute distress HEENT: Oral mucosa moist no icterus, no facial swelling, patient does appear to have uremic order Neck: Supple no thyromegaly no lymphadenopathy no JVD Chest: Clear to auscultation no crackles rales or wheezes Heart: Regular rate and rhythm S1-S2 heard no S3-S4 Abdomen: Soft nontender no organomegaly no masses palpable no renal bruit no suprapubic masses no CVA tenderness Dermatology: No skin rashes noted Extremity: Less than 1+ peripheral edema, dry skin no petechial rashes Musculoskeletal: No joint effusion noted in knee and ankle area Psych: No evidence of agitation and aggression noted Neurological: Encephlopathic no tremors no myoclonus Back: No CVA tenderness Past History Past Medical History: anemia, COPD, diabetes, hypertension, renal failure, seizures, stroke, other (contractures, chronic debility, dementia, BPH, recurrent UTI, chronic indwelling Chaudhary catheter, arthritis, kidney stones) Past Surgical History: Other (debridement of sacral wound, gastrostomy) Social history: lives with family (Resident of [facility]) Family history: no significant family history Medications and Allergies Allergies Allergy/AdvReac Type Severity Reaction Status Date / Time lisinopril Allergy Unknown Verified 10/01/18 15:17 tramadol Allergy Unknown Verified 07/29/18 18:39 Home Medications Medication Instructions Recorded Confirmed Last Taken Type Multivit-Min/Iron Fum/Folic AC 1 each PO DAILY 03/24/18 01/19/19 12/29/18 History [Xqwco-Svihblz-Bbphlsjb Tablet] Acetaminophen 650 mg NGTUBE Q6H PRN 07/30/18 01/19/19 12/29/18 History Ipratropium/Albuterol Sulfate 1 ampul IH BID 07/30/18 01/19/19 12/29/18 History [DUONEB *Not for PRN Use*] Tamsulosin [Flomax] 0.4 mg PO QDAY 07/30/18 01/19/19 01/19/19 10:00 History Vit C/Ascorbate Calcium,Sodium 500 mg NGTUBE BID 07/30/18 01/19/19 12/29/18 History [Vitamin C 500 mg/15 ml Liquid] Zinc Sulfate 220 mg NGTUBE QDAY 07/30/18 01/19/19 12/29/18 History levETIRAcetam [Keppra INJ] 500 mg PO Q12H 07/30/18 01/19/19 01/19/19 13:55 History Phosphorus #1 [K-Phos Neutral] 250 mg PO QID #30 tablet 08/23/18 01/19/19 12/29/18 Rx AtorvaSTATin [Lipitor] 40 mg NGTUBE QHS #30 tablet 10/21/18 01/19/19 12/29/18 Rx Insulin Aspart [NovoLOG 100 0 unit SQ AC 11/01/18 01/19/19 12/29/18 History UNITS/ML VIAL] ALBUTEROL NEB's [Proventil 0.083% 2.5 mg IH Q3HRT PRN nebu 12/27/18 01/19/19 12/29/18 Rx NEBS] Cefuroxime Axetil [Ceftin] 500 mg PO Q12H #140 ml 01/02/19 01/19/19 Unknown Rx Carvedilol [Coreg] 12.5 mg PO BID #60 tablet 01/23/19 Unknown Rx Active Meds: Active Medications Acetaminophen (Tylenol) 650 mg PO Q4H PRN PRN Reason: Pain MILD(1-3)/Fever >100.5/PRICE Albuterol (Proventil) 2.5 mg IH Q3HRT PRN PRN Reason: Shortness Of Breath Albuterol/Ipratropium (Duoneb *Not For Prn Use*) 1 ampul IH BIDRT NORA Ascorbic Acid (Vitamin C) 500 mg FEEDTUBE BID NORA Atorvastatin Calcium (Lipitor) 40 mg FEEDTUBE QHS [facility] Carvedilol (Coreg) 12.5 mg PO BID NORA Sodium Chloride (Nacl 0.45% 1000 Ml) 1,000 mls @ 50 mls/hr IV DIRECT NORA Cefepime HCl (Maxipime/Ns 2 Gm/100 Ml) 2 gm in 100 mls @ 200 mls/hr IV Q24H NORA; Protocol Levetiracetam (Keppra) 500 mg FEEDTUBE Q12H [facility] Last Admin: 01/30/19 02:01 Dose: 500 mg Documented by: Multivitamins (Centrum Liq) 5 ml PO DAILY [facility] Ondansetron HCl (Zofran) 4 mg IV Q4H PRN PRN Reason: Nausea And Vomiting Sodium Chloride (Sodium Chloride Flush Syringe 10 Ml) 10 ml IV BID [facility] Sodium Chloride (Sodium Chloride Flush Syringe 10 Ml) 10 ml IV PRN PRN PRN Reason: LINE FLUSH Tamsulosin HCl (Flomax) 0.4 mg PO QDAY [facility] Zinc Sulfate (Zinc Sulfate) 220 mg PO QDAY [facility] Exam - Vital Signs Vital signs: Vital Signs Temp Pulse Resp BP Pulse Ox 100.5 F H 100 H 20 159/82 96 01/29/19 18:40 01/29/19 18:40 01/29/19 18:40 01/29/19 18:40 01/29/19 18:40 Results - Lab Results 01/30/19 08:54 01/30/19 08:54 Most recent lab results Calcium 9.0 mg/dL (8.4-10.2) 01/30/19 08:54
[2019-01-30] MEDS ORDERED: LOVENOX SUB-Q SCH (10:00)
[2019-01-30] MEDS: DUONEB *Not for PRN Use IH SCH ×3 (10:22→21:35)
[2019-01-30] MEDS ORDERED: VERSED ONE ×2 (11:33→12:16)
[2019-01-30] MEDS ORDERED: SUBLIMAZE ONE (11:33)
[2019-01-30] MEDS ORDERED: HEPARIN/NS 5000 UNIT/500ML(CATH LAB) 500 ML IR ONE (11:35)
[2019-01-30] MEDS ORDERED: NACL 0.9% 250ML 250 ML ONE (11:35)
--- NOTE | 2019-01-30 12:06 | Event Note ---
Date: 01/30/19 [address] by Ne[address]rology to place a vascath in patient urgently for emergent dialysis. patient unable to consent and family not reachable. plan for vascath insertion in the laborer [place] with two physician consent.
[2019-01-30] MEDS: XYLOCAINE 1%/ EPI 1:100,000 INFILTRATI ONE ×2 (12:19→12:31)
[2019-01-30] MEDS: HEPARIN 10,000 UNITS/10 ML ONE ×2 (12:54→12:55)
--- NOTE | 2019-01-30 12:57 | Post Operative Note ---
Pre-op diagnosis: Acute Renal Failure Post-op diagnosis: same Procedure: 1. Left IJ 20cm Trialysis Catheter Insertion 2. Monitored Conscious Sedation Anesthesia: MAC, local Surgeon: TRACEY SALES Estimated blood loss: minimal Pathology: none Condition: stable Disposition: floor
[2019-01-30 13:16] LABS: Hepatitis B Surface Antigen Non-Reactive (Negative); Hepatitis C Virus Antibody Non-Reactive (NonReactive)
--- NOTE | 2019-01-30 13:24 | XRay Report ---
CHEST 1 VIEW INDICATION: DIALYSIS CATH PLACEMENT. COMPARISON: 01/29/2019 FINDINGS: Support devices: A left IJ dual-lumen catheter has been placed which appears to terminate in the supe rior SVC. A limited view of the chest is presented with the chin overlying the right upper lobe. Mild cardiomeg kirk is suspected. There appear to be large areas of atelectasis throughout the right lung. The left l cristina is hyperaerated. IMPRESSION: Limited exam. The left IJ venous catheter appears to terminate in the SVC. Signer Name: Merlin Smith Jr, MD Signed: 01/30/2019 1:20 PM Workstation Name: [id number]
[2019-01-30] MEDS ORDERED: SIMPLE SYRUP FEEDTUBE PRN ×2 (13:35)
[2019-01-30] MEDS ORDERED: PANCREAZE DR 10,500 UNIT FEEDTUBE PRN (13:35)
--- NOTE | 2019-01-30 13:40 | Operative Report ---
STAFF SURGEON: Dr. Brando Carlson. PREOPERATIVE DIAGNOSIS: Acute renal failure. POSTOPERATIVE DIAGNOSIS: Acute renal failure. PROCEDURE PERFORMED: 1. Left IJ 20 cm Trialysis catheter insertion. 2. Monitored conscious sedation. COMPLICATIONS: None. ESTIMATED BLOOD LOSS: Less than 10 mL. ANESTHESIA: Local MAC. INDICATIONS: This is a 68-year-old gentleman with multiple medical problems who was currently admitted with hyperkalemia and worsening renal function. Therefore, Nephrology felt that the patient was to require emergent dialysis. The patient was unable to provide consent and the patient's family was not available and therefore, 2-physician consent was performed. DESCRIPTION OF PROCEDURE: After the appropriate consent was obtained, the patient was brought to the greens laborer. Due to the protracted nature of the patient, the patient was prepped and draped in his bed in the left neck and chest and then, I proceeded to perform an appropriate timeout indicating the correct patient, procedure, and site of the procedure. I then began the intervention by obtaining percutaneous access of the left internal jugular vein using a micropuncture technique under ultrasound guidance. Once we obtained an access, needle was exchanged for a micropuncture sheath using Seldinger technique. Then, I proceeded to place the stiff J wire into the superior vena cava. The MicroSheath was removed. The access site was sealed with dilator appropriately and then a 20 cm Trialysis catheter was placed over the wire. The wire was removed. Both lumens coleen blood appropriately were flushed with heparinized saline. An appropriate amount of heparin was placed in each port. Of note, due to the fact we were unable to perform fluoroscopy during the case to confirm that we were within the internal jugular vein, tubing was hooked up to the micropuncture and to evaluate for any pulsatile flow, which was negative. In addition, a chest x-ray was performed at the completion of the intervention demonstrating adequate placement. The catheter was sutured in place with 2-0 nylon. An appropriate dressing was placed. The patient tolerated the procedure well and was sent back to the floor in stable condition. JOB# [id number] CURT/LUCI
[2019-01-30] MEDS ORDERED: NACL 0.9% 100 ML IV PRN (14:02)
--- NOTE | 2019-01-30 14:57 | Consultation ---
History of Present Illness - Reason for Consult Consult date: 01/30/19 - History of Present Illness 68 yo M PMhx multiple chronic sacral and other wounds, recurrent UTI, CVA, BPH, CHF, contractures, DM2, COPD, dementia admitted due to abnormal labs. He was found to be hyperkalemic and having worsening renal function. He was admitted for emergent dialysis, and vascular placed a Trialysis line emergently. He is unable to participate in the interview due to his mental status. We have seen him on numerous occasions due to his chronic wounds and recurrent UTIs. Afebrile since admission with a white count of 13 that has since returned to normal. He is currently receiving cefepime. 01/29 BCx currently with 1 bottle of GPC in clusters pending finalization. Imaging personally reviewed: 01/30 renal US - no acute abnormality. Past History Past Medical History: anemia, COPD, diabetes, hypertension, renal failure, seizures, stroke, other (contractures, chronic debility, dementia, BPH, recurrent UTI, chronic indwelling Chaudhary catheter, arthritis, kidney stones) Past Surgical History: Other (debridement of sacral wound, gastrostomy) Social history: lives with family (Resident of [facility]) Family history: diabetes, hypertension Medications and Allergies Allergies Allergy/AdvReac Type Severity Reaction Status Date / Time lisinopril Allergy Unknown Verified 10/01/18 15:17 tramadol Allergy Unknown Verified 07/29/18 18:39 Home Medications Medication Instructions Recorded Confirmed Last Taken Type Multivit-Min/Iron Fum/Folic AC 1 each PO DAILY 03/24/18 01/19/19 12/29/18 History [Cavsr-Gvoqjwa-Bkjmkkty Tablet] Acetaminophen 650 mg NGTUBE Q6H PRN 07/30/18 01/19/19 12/29/18 History Ipratropium/Albuterol Sulfate 1 ampul IH BID 07/30/18 01/19/19 12/29/18 History [DUONEB *Not for PRN Use*] Tamsulosin [Flomax] 0.4 mg PO QDAY 07/30/18 01/19/19 01/19/19 10:00 History Vit C/Ascorbate Calcium,Sodium 500 mg NGTUBE BID 07/30/18 01/19/19 12/29/18 History [Vitamin C 500 mg/15 ml Liquid] Zinc Sulfate 220 mg NGTUBE QDAY 07/30/18 01/19/19 12/29/18 History levETIRAcetam [Keppra INJ] 500 mg PO Q12H 07/30/18 01/19/19 01/19/19 13:55 History Phosphorus #1 [K-Phos Neutral] 250 mg PO QID #30 tablet 08/23/18 01/19/19 12/29/18 Rx AtorvaSTATin [Lipitor] 40 mg NGTUBE QHS #30 tablet 10/21/18 01/19/19 12/29/18 Rx Insulin Aspart [NovoLOG 100 0 unit SQ AC 11/01/18 01/19/19 12/29/18 History UNITS/ML VIAL] ALBUTEROL NEB's [Proventil 0.083% 2.5 mg IH Q3HRT PRN nebu 12/27/18 01/19/19 12/29/18 Rx NEBS] Cefuroxime Axetil [Ceftin] 500 mg PO Q12H #140 ml 01/02/19 01/19/19 Unknown Rx Carvedilol [Coreg] 12.5 mg PO BID #60 tablet 01/23/19 Unknown Rx Active Meds: Active Medications Acetaminophen (Tylenol) 650 mg PO Q4H PRN PRN Reason: Pain MILD(1-3)/Fever >100.5/PRICE Albuterol (Proventil) 2.5 mg IH Q3HRT PRN PRN Reason: Shortness Of Breath Albuterol/Ipratropium (Duoneb *Not For Prn Use*) 1 ampul IH BIDRT NORA Last Admin: 01/30/19 10:22 Dose: Not Given Documented by: Lipase/Protease/Amylase (Nickie Moore 10,500 Unit) 1 each FEEDTUBE PRN PRN PRN Reason: For Clogged Feeding Tube Ascorbic Acid (Vitamin C) 500 mg FEEDTUBE BID NORA Atorvastatin Calcium (Lipitor) 40 mg FEEDTUBE QHS NORA Carvedilol (Coreg) 12.5 mg PO BID NORA Sodium Chloride (Nacl 0.45% 1000 Ml) 1,000 mls @ 50 mls/hr IV DIRECT NORA Cefepime HCl (Maxipime/Ns 2 Gm/100 Ml) 2 gm in 100 mls @ 200 mls/hr IV Q24H NORA; Protocol Sodium Chloride (Nacl 0.9%) 100 mls @ 999 mls/hr IV SANDEEP PRN PRN Reason: Hypotension Levetiracetam (Keppra) 500 mg FEEDTUBE Q12H NORA Last Admin: 01/30/19 02:01 Dose: 500 mg Documented by: Multivitamins (Centrum Liq) 5 ml PO DAILY NORA Ondansetron HCl (Zofran) 4 mg IV Q4H PRN PRN Reason: Nausea And Vomiting Simple Syrup (Simple Syrup) 15 ml FEEDTUBE PRN PRN PRN Reason: Hypoglycemia Simple Syrup (Simple Syrup) 30 ml FEEDTUBE PRN PRN PRN Reason: Hypoglycemia Sodium Bicarbonate (Sodium Bicarbonate) 325 mg FEEDTUBE PRN PRN PRN Reason: For Clogged Feeding Tube Sodium Chloride (Sodium Chloride Flush Syringe 10 Ml) 10 ml IV BID NORA Sodium Chloride (Sodium Chloride Flush Syringe 10 Ml) 10 ml IV PRN PRN PRN Reason: LINE FLUSH Tamsulosin HCl (Flomax) 0.4 mg PO QDAY NORA Zinc Sulfate (Zinc Sulfate) 220 mg PO QDAY NORA Review of Systems ROS unobtainable: due to mental status Physical Examination - Physical Exam Narrative exam: Constitutional: Altered, does not follow commands. Head, Ears, Nose: Normocephalic, atraumatic. External ears, nose normal Eyes: Conjunctivae/corneas clear. No icterus. No ptosis. Neck: Supple, no meningeal signs Oral: dentition fair, no thrush Cardiovascular: S1, S2 normal. Respiratory: Good air entry, clear to auscultation bilaterally GI: Soft, non-tender; bowel sounds normal. No peritoneal signs. Musculoskeletal: No pedal edema, no cyanosis. Contractures Skin: Numerous bilateral LE wounds and sacral wound Hem/Lymphatic: No palpable cervical or supraclavicular nodes. No lymphangitis Neurological: Awake, disoriented - Constitutional Vitals: Vital Signs Temp Pulse Resp BP Pulse Ox 98.6 F 95 H 20 135/73 88 01/30/19 07:47 01/30/19 10:00 01/30/19 07:47 01/30/19 07:47 01/30/19 07:47 Temperature -Last 24 Hours Temperature 98.6 F Temperature 99.0 F Temperature 97.6 F Temperature 97.8 F Temperature 97.8 F Temperature 97.7 F Temperature 97.4 F Temperature 100.5 F Results - Labs CBC & Chem 7: 01/30/19 08:54 01/30/19 08:54 Labs: Abnormal lab results 01/29/19 01/29/19 01/29/19 Range/Units 19:30 19:30 20:50 WBC 13.1 H (4.5-11.0) K/mm3 RBC 2.50 L (3.65-5.03) M/mm3 Hgb 6.8 L (11.8-15.2) gm/dl Hct 21.4 L (35.5-45.6) % MCH 27 L (28-32) pg RDW 19.1 H (13.2-15.2) % Lymph % (Auto) 6.4 L (13.4-35.0) % [place] % (Auto) 9.3 H (0.0-7.3) % Lymph # 0.8 L (1.2-5.4) K/mm3 [place] # 1.2 H (0.0-0.8) K/mm3 Seg Neutrophils % 81.7 H (40.0-70.0) % Seg Neutrophils # 10.7 H (1.8-7.7) K/mm3 Sodium 147 H (137-145) mmol/L Potassium 5.9 H (3.6-5.0) mmol/L BUN 107 H (9-20) mg/dL Creatinine 3.3 H (0.8-1.5) mg/dL Albumin 1.7 L (3.9-5) g/dL Urine pH (5.0-7.0) Urine WBC (Auto) (0.0-6.0) /HPF Crossmatch See Detail 01/29/19 01/29/19 01/30/19 Range/Units 22:15 23:38 03:30 WBC (4.5-11.0) K/mm3 RBC (3.65-5.03) M/mm3 Hgb (11.8-15.2) gm/dl Hct (35.5-45.6) % MCH (28-32) pg RDW (13.2-15.2) % Lymph % (Auto) (13.4-35.0) % [place] % (Auto) (0.0-7.3) % Lymph # (1.2-5.4) K/mm3 [place] # (0.0-0.8) K/mm3 Seg Neutrophils % (40.0-70.0) % Seg Neutrophils # (1.8-7.7) K/mm3 Sodium 146 H (137-145) mmol/L Potassium 6.1 H* (3.6-5.0) mmol/L BUN 111 H (9-20) mg/dL Creatinine 3.5 H (0.8-1.5) mg/dL Albumin (3.9-5) g/dL Urine pH 9.0 H 9.0 H (5.0-7.0) Urine WBC (Auto) 41.0 H 7.0 H (0.0-6.0) /HPF Crossmatch 01/30/19 01/30/19 01/30/19 Range/Units 08:54 08:54 08:54 WBC 12.6 H (4.5-11.0) K/mm3 RBC 2.79 L (3.65-5.03) M/mm3 Hgb 7.7 L (11.8-15.2) gm/dl Hct 23.9 L (35.5-45.6) % MCH (28-32) pg RDW 18.3 H (13.2-15.2) % Lymph % (Auto) 8.7 L (13.4-35.0) % [place] % (Auto) 7.5 H (0.0-7.3) % Lymph # 1.1 L (1.2-5.4) K/mm3 [place] # 0.9 H (0.0-0.8) K/mm3 Seg Neutrophils % 81.5 H (40.0-70.0) % Seg Neutrophils # 10.3 H (1.8-7.7) K/mm3 Sodium 150 H (137-145) mmol/L Potassium 5.9 H 5.9 H (3.6-5.0) mmol/L BUN 114 H (9-20) mg/dL Creatinine 3.5 H (0.8-1.5) mg/dL Albumin (3.9-5) g/dL Urine pH (5.0-7.0) Urine WBC (Auto) (0.0-6.0) /HPF Crossmatch Assessment and Plan Cultures: 01/29 BCX - 1/ GPC in clusters A/P: 68 yo M PMhx multiple chronic sacral and other wounds, recurrent UTI, CVA, BPH, CHF, contractures, DM2, COPD, dementia admitted for emergent initiation of dialysis. 1. Acute sepsis - present on admission with leukocytosis and tachycardia. Secondary to bacteremia vs UTI. 2. GPC bacteremia - possible contaminant with 1/4 bottle positive, though more may yet grow. Can start vancomycin for now and stop if cultures return a contaminant. If true infection likely from multiple chronic wounds 3. Positive urinalysis - cannot assess for symptoms, UA only weakly with pyuria. Not strong evidence, however he has had so many UTI can continue cefepime pending culture results. 4. Multiple chronic wounds - encourage ongoing wound care. Minimal utility in treating, please do not culture unless they appear acutely infected with purulence. 5. ESRD on HD - now with emergent dialysis, will dose antibiotics accordingly. 6. DM2 7. COPD 8. Dementia Recs: - start vancomycin dose per pharmacy. Appreciate their assistance. Goal trough 15-20 - continue cefepime 2g q24h - follow up urine and blood cultures. Thank you for the consult, we will continue to follow. Stacie Wu MD [facility] ([facility] M: [phone] O: [phone] F: [phone]
--- NOTE | 2019-01-30 15:27 | Progress Note ---
Assessment and Plan Assessment and plan: Patient is 68-year-old male who is a resident of [facility] with history of hypertension, CVA, BPH, CHF, contracture upper and lower extremities, sacral pressure ulcer, bilateral lower extremity pressure ulcer, CAD, DM, seizure, COPD, dementia who presents to [facility] ED for evaluation of abnormal labs. Patient admitted for emergent initiation of dialysis. * pCXR IMPRESSION: 1. Linear radiopaque structure projects over the mediastinum not certain of the nature of this object. There is airspace opacity in the right midlung zone. Pneumonia -CXR shows opacity in the right midlung zone -Cultures pending -On IV Abx -ID consulted Leukocytosis with sepsis poa -likely secondary to pneumonia -WBC 13.1 -TMAX 100.5 -Cultures pending -On IV abx -GPC bacteremia - possible contaminant with 1/4 bottle positive, though more may yet grow. Can start vancomycin for now and stop if cultures return a contaminant. If true infection likely from multiple chronic wounds Chronic anemia -Hbg on admission 6.8 -No s/s of active bleeding -Receiving 1u PRBC -Continue to monitor hgb -Transfuse prn MÓNICA -Imposed CKD -Cr on admission 3.3 ( up from 2.6 on 01/23/19) -Baseline around 1.0 -Avoid nephrotoxic agents -Gentle hydration with IVF -Renal dose all meds -Nephrology consulted Hyperkalemia -Potassium on admission 6.8 -Received hyperkalemic cocktail in ED -Repeat labs pending -Nephrology following Hx BPH -Chaudhary catheter -Continue Flomax Hx Seizure disorder -continue Keppra Hypertension -Continue to monitor BP -Continue Coreg Hx of Pressure Ulcers -Sacral and BLE -Wound care consult pending DM 2 -POC BG monitoring -SSI coverage COPD -Albuterol prn Chronic debility -Contracture of extremities x4 -PT/OT eval pending Severe malnutrition -Albumin 1.7 -Pt has PEG Tube -Dietitian consulted for mgmt of TF Hx Dementia Hx CHF Hx CVA DVT PPX -SCD's History Interval history: Patient was seen and examined. Follow-up on current diagnosis of Sepsis. No overnight events reported to me. Patient denies any chest pain, shortness breath, nausea/vomiting or severe headaches. Imaging, nursing note, chart, labs and old chart reviewed. Discussed with patient. Hospitalist Physical - Physical exam Narrative exam: Gen: chronically disable, mostly nonverbal HEENT: NCAT, EOMI, PERRL, OP Clear Neck: supple, no adenopathy, no thyromegaly, no JVD CVS/Heart: RRR, normal S1S2, pulses present bilaterally Chest/Lungs: CTA B, Symmetrical chest expansion, good air entry bilaterally GI/Abdomen: soft, NTND, good bowel sounds, no guarding or rebound /Bladder: no suprapubic tenderness, no CVA or paraspinal tenderness Extermity/Skin: multiple pressure ulcers variable stages, 3-4 MSK: contracted x 4, neck flex to chest, in a chronic position Neuro: CN 2-12 grossly intact, no new focal deficits Psych: calm - Constitutional Vitals: Temp Pulse Resp BP Pulse Ox 98.6 F 95 H 20 135/73 88 01/30/19 07:47 01/30/19 10:00 01/30/19 07:47 01/30/19 07:47 01/30/19 07:47 Results - Labs CBC & Chem 7: 01/30/19 08:54 01/30/19 08:54 Labs: Laboratory Last Values WBC 12.6 K/mm3 (4.5-11.0) H 01/30/19 08:54 RBC 2.79 M/mm3 (3.65-5.03) L 01/30/19 08:54 Hgb 7.7 gm/dl (11.8-15.2) L 01/30/19 08:54 Hct 23.9 % (35.5-45.6) L 01/30/19 08:54 MCV 86 fl (84-94) 01/30/19 08:54 MCH 28 pg (28-32) 01/30/19 08:54 MCHC 32 % (32-34) 01/30/19 08:54 RDW 18.3 % (13.2-15.2) H 01/30/19 08:54 Plt Count 358 K/mm3 (140-440) 01/30/19 08:54 Lymph % (Auto) 8.7 % (13.4-35.0) L 01/30/19 08:54 [place] % (Auto) 7.5 % (0.0-7.3) H 01/30/19 08:54 Eos % (Auto) 1.3 % (0.0-4.3) 01/30/19 08:54 Baso % (Auto) 1.0 % (0.0-1.8) 01/30/19 08:54 Lymph # 1.1 K/mm3 (1.2-5.4) L 01/30/19 08:54 [place] # 0.9 K/mm3 (0.0-0.8) H 01/30/19 08:54 Eos # 0.2 K/mm3 (0.0-0.4) 01/30/19 08:54 Baso # 0.1 K/mm3 (0.0-0.1) 01/30/19 08:54 Seg Neutrophils % 81.5 % (40.0-70.0) H 01/30/19 08:54 Seg Neutrophils # 10.3 K/mm3 (1.8-7.7) H 01/30/19 08:54 Sodium 150 mmol/L (137-145) H 01/30/19 08:54 Potassium 5.9 mmol/L (3.6-5.0) H 01/30/19 08:54 Potassium 5.9 mmol/L (3.6-5.0) H 01/30/19 08:54 Chloride 105.5 mmol/L (98-107) 01/30/19 08:54 Carbon Dioxide 29 mmol/L (22-30) 01/30/19 08:54 21 mmol/L 01/30/19 08:54 BUN 114 mg/dL (9-20) H 01/30/19 08:54 3.5 mg/dL (0.8-1.5) H 01/30/19 08:54 Estimated GFR 21 ml/min 01/30/19 08:54 33 % 01/30/19 08:54 Glucose 91 mg/dL (75-100) 01/30/19 08:54 355 Mosm/kg 01/30/19 08:54 Lactic Acid 0.80 mmol/L (0.7-2.0) 01/29/19 21:00 7.0 mg/dL (3.5-7.6) 01/30/19 08:54 Calcium 9.0 mg/dL (8.4-10.2) 01/30/19 08:54 < 0.20 mg/dL (0.1-1.2) 01/29/19 19:30 AST 25 units/L (5-40) 01/29/19 19:30 ALT 13 units/L (7-56) 01/29/19 19:30 115 units/L (35-129) 01/29/19 19:30 62 units/L (55-170) 01/30/19 08:54 7.0 g/dL (6.3-8.2) 01/29/19 19:30 1.7 g/dL (3.9-5) L 01/29/19 19:30 0.3 % 01/29/19 19:30 Prostate Specific Ag 0.03 ng/mL (0.00-4.00) 01/30/19 08:54 Yellow (Yellow) 01/30/19 03:30 Clear (Clear) 01/30/19 03:30 9.0 (5.0-7.0) H 01/30/19 03:30 Ur Specific [place] 1.013 (1.003-1.030) 01/30/19 03:30 100 mg/dl mg/dL (Negative) 01/30/19 03:30 Neg mg/dL (Negative) 01/30/19 03:30 Neg mg/dL (Negative) 01/30/19 03:30 Neg (Negative) 01/30/19 03:30 Neg (Negative) 01/30/19 03:30 Neg (Negative) 01/30/19 03:30 < 2.0 mg/dL (<2.0) 01/30/19 03:30 Ur Leukocyte Esterase Tr (Negative) 01/30/19 03:30 7.0 /HPF (0.0-6.0) H 01/30/19 03:30 5.0 /HPF (0.0-6.0) 01/30/19 03:30 U Epithel Cells (Auto) < 1.0 /HPF (0-13.0) 01/29/19 22:15 1+ /HPF (Negative) 01/30/19 03:30 Few /HPF 01/30/19 03:30 1+ /HPF 01/30/19 03:30 Hepatitis A IgM Ab Non-reactive (NonReactive) 01/30/19 08:54 Hep Bs Antigen Non-reactive (Negative) 01/30/19 08:54 Hep B Core IgM Ab Non-reactive (NonReactive) 01/30/19 08:54 Non-reactive (NonReactive) 01/30/19 08:54 Blood Type O POSITIVE 01/29/19 20:50 Antibody Screen Negative 01/29/19 20:50 Crossmatch See Detail 01/29/19 20:50 Active Medications - Current Medications Current Medications: Generic Name Dose Route Start Last Admin Trade Name Freq PRN Reason Stop Dose Admin Acetaminophen 650 mg 01/29/19 23:15 Tylenol PO Q4H PRN Pain MILD(1-3)/Fever >100.5/PRICE Albuterol 2.5 mg 01/29/19 23:19 Proventil IH Q3HRT PRN Shortness Of Breath Albuterol/Ipratropium 1 ampul 01/30/19 08:00 01/30/19 15:19 Duoneb *Not For Prn Use* IH 1 ampul BIDRT NORA Administration Lipase/Protease/Amylase 1 each 01/30/19 13:35 Pancreaze 10,500 Unit FEEDTUBE PRN PRN For Clogged Feeding Tube Ascorbic Acid 500 mg 01/30/19 10:00 Vitamin C FEEDTUBE BID NORA Atorvastatin Calcium 40 mg 01/30/19 22:00 Lipitor FEEDTUBE QHS NORA Carvedilol 12.5 mg 01/30/19 10:00 Coreg PO BID NORA Sodium Chloride 1,000 mls @ 50 mls/hr 01/29/19 23:00 Nacl 0.45% 1000 Ml IV DIRECT NORA Cefepime HCl 2 gm in 100 mls @ 200 mls/hr 01/31/19 10:00 Maxipime/Ns 2 Gm/100 Ml IV Q24H [facility] Protocol Sodium Chloride 100 mls @ 999 mls/hr 01/30/19 14:02 Nacl 0.9% IV SANDEEP PRN Hypotension Levetiracetam 500 mg 01/29/19 23:30 01/30/19 02:01 Keppra FEEDTUBE 500 mg Q12H NORA Administration Multivitamins 5 ml 01/30/19 10:00 Centrum Liq PO DAILY NORA Ondansetron HCl 4 mg 01/29/19 23:15 Zofran IV Q4H PRN Nausea And Vomiting Simple Syrup 15 ml 01/30/19 13:35 Simple Syrup FEEDTUBE PRN PRN Hypoglycemia Simple Syrup 30 ml 01/30/19 13:35 Simple Syrup FEEDTUBE PRN PRN Hypoglycemia Sodium Bicarbonate 325 mg 01/30/19 13:35 Sodium Bicarbonate FEEDTUBE PRN PRN For Clogged Feeding Tube Sodium Chloride 10 ml 01/30/19 10:00 Sodium Chloride Flush Syringe 10 Ml IV BID NORA Sodium Chloride 10 ml 01/29/19 23:15 Sodium Chloride Flush Syringe 10 Ml IV PRN PRN LINE FLUSH Tamsulosin HCl 0.4 mg 01/30/19 10:00 Flomax PO QDAY NORA Zinc Sulfate 220 mg 01/30/19 10:00 Zinc Sulfate PO QDAY NORA Nutrition/Malnutrition Assess - Dietary Evaluation Nutrition/Malnutrition Findings: Nutrition Notes Start: 01/30/19 11:40 Freq: Status: Active Protocol: Document 01/30/19 11:40 RS (Rec: 01/30/19 13:34 RS [id number]) Co-Sign 01/30/19 11:40 RM Nutrition Notes Need for Assessment generated from: MD Order Initial or Follow up Assessment Current Diagnosis Acute Kidney Injury,CKD(stage I-IV),COPD,Coronary Artery Disease,Diabetes,Sepsis, Hypertension,Heart Failure, Stroke Other Pertinent Diagnosis Multiple wounds, Dementia, seizures, PEG, on HD Current Diet Dietary Supplements Labs/Tests Na: 146 K: 6.1 Pertinent Medications Reviewed Height 6 ft Weight 95.25 kg Capac Body Weight (kg) 80.90 BMI 28.5 Weight Status Overweight Subjective/Other Information MD consult for TF. Pt observed for MST screen. Pt could not be physically evaluated for malnutrition d/t him hunched over sleeping to the side, but edema was observed in UE. Observed breakfast tray, w/ 0% consumed. Burn Absent Trauma Absent GI Symptoms None Minimum of two criteria No #1 Nutrition Diagnosis Inadequate oral intake Etiology Hx of stroke, Dementia As Evidenced by Signs and Symptoms pt requiring EN to meet nutrional needs Is patient on ventilator? No Is Patient Ambulatory and/or Out of Bed No REE-([facility]-confined to bed) 1451.454 Calculation Used for Recommendations [facility] Additional Notes Protien needs (1.2-1.5g/kg): 114-143g/day Fluid needs: 1.0-1.5L/day Nutrition Intervention Change Diet Order: Start TF Nutrition Support: Nepro at 50ml/hr. Water flush 200mL q4hr until hypernatremia resolves Water flush 100mL q4hrs after hypernatremia resolves Kcal 2,160 Protein (gm) 97 Fluid (mL) 872 Add Supplement/Snack (indicate name/kcal Mario BID /protein ) Provides kCal: 190 Provides Protein (gm) 5 Goal #1 Meet at least 75% of kcal/pro needs via TF Goal #2 TF tolerance Anticipated Discharge Needs: TF Follow-Up By: 02/03/19 Additional Comments F/U for TF tolerance, renal labs, HD status
[2019-01-30] MEDS: VITAMIN C FEEDTUBE SCH (22:37)
[2019-01-30] MEDS: COREG PO SCH (22:38)
[2019-01-30] MEDS: SODIUM CHLORIDE FLUSH SYRINGE 10 ML IV SCH (22:38)
[2019-01-31] MEDS: SODIUM CHLORIDE FLUSH SYRINGE 10 ML IV SCH ×2 (00:39→22:14)
[2019-01-31] MEDS: KEPPRA FEEDTUBE SCH ×4 (00:39→22:44)
[2019-01-31] MEDS: VITAMIN C FEEDTUBE SCH ×3 (00:40→22:15)
[2019-01-31] MEDS: ZINC SULFATE PO SCH ×2 (00:40→10:21)
[2019-01-31] MEDS: Centrum Liq PO SCH ×2 (00:41→10:20)
[2019-01-31] MEDS: FLOMAX PO SCH ×2 (00:42→10:20)
[2019-01-31] MEDS: COREG PO SCH ×3 (00:42→22:15)
[2019-01-31] MEDS ORDERED: MAXIPIME/NS 2 GM/100 ML 2 GM/100 ML BAG IV SCH (10:00)
--- NOTE | 2019-01-31 12:02 | Progress Note ---
Subjective Interval history: Patient was seen today for follow-up of multiple renal related issues has had hemodialysis yesterday, he is much more alert awake Potassium currently pending Interdisciplinary notes that also reviewed Events of 24 hours vitals labs intake output medications were reviewed Past medical history: Reviewed Family history: Reviewed Social history: Reviewed Allergies: Reviewed Physical examination: Vitals: Reviewed HEENT: No pallor or icterus oral mucosa moist Neck: Supple no JVD no thyromegaly Chest: Bilateral clear to auscultation anteriorly Heart: Regular rate and rhythm S1-S2 heard no S3-S4 Abdomen: Soft nontender no voluntary guarding rigidity rebound Extremity: Dry skin less than 1+ peripheral edema Psychiatric: No evidence of agitation and aggression noted Dermatology: No petechial rashes Labs and x-rays: Reviewed from today Assessment and plan Severe renal failure with hyperkalemia Patient received one dialysis treatment Will order for follow-up labs patient appears to be mentally much more alert awake We will reassess for dialysis tomorrow morning I have not heard from the family member yet We'll continue to follow and make recommendation for renal standpoint Objective - Vital Signs Vital signs: Vital Signs - 12hr 01/31/19 01/31/19 00:02 04:41 Temperature 98.0 F 98.0 F Pulse Rate 88 Respiratory 20 18 Rate Blood Pressure 115/92 96/62 O2 Sat by Pulse 96 Oximetry - Lab 01/30/19 08:54 01/31/19 13:08 Most recent lab results Calcium 9.0 mg/dL (8.4-10.2) 01/30/19 08:54 Medications & Allergies - Medications Allergies/Adverse Reactions: Allergies lisinopril Allergy (Verified 10/01/18 15:17) Unknown tramadol Allergy (Verified 07/29/18 18:39) Unknown Home Medications: Home Medications Medication Instructions Recorded Confirmed Last Taken Type Multivit-Min/Iron Fum/Folic AC 1 each PO DAILY 03/24/18 01/19/19 12/29/18 History [Nnvhl-Tahuqsg-Hhxxdvtc Tablet] Acetaminophen 650 mg NGTUBE Q6H PRN 07/30/18 01/19/19 12/29/18 History Ipratropium/Albuterol Sulfate 1 ampul IH BID 07/30/18 01/19/19 12/29/18 History [DUONEB *Not for PRN Use*] Tamsulosin [Flomax] 0.4 mg PO QDAY 07/30/18 01/19/19 01/19/19 10:00 History Vit C/Ascorbate Calcium,Sodium 500 mg NGTUBE BID 07/30/18 01/19/19 12/29/18 History [Vitamin C 500 mg/15 ml Liquid] Zinc Sulfate 220 mg NGTUBE QDAY 07/30/18 01/19/19 12/29/18 History levETIRAcetam [Keppra INJ] 500 mg PO Q12H 07/30/18 01/19/19 01/19/19 13:55 History Phosphorus #1 [K-Phos Neutral] 250 mg PO QID #30 tablet 08/23/18 01/19/19 12/29/18 Rx AtorvaSTATin [Lipitor] 40 mg NGTUBE QHS #30 tablet 10/21/18 01/19/19 12/29/18 Rx Insulin Aspart [NovoLOG 100 0 unit SQ AC 11/01/18 01/19/19 12/29/18 History UNITS/ML VIAL] ALBUTEROL NEB's [Proventil 0.083% 2.5 mg IH Q3HRT PRN nebu 12/27/18 01/19/19 12/29/18 Rx NEBS] Cefuroxime Axetil [Ceftin] 500 mg PO Q12H #140 ml 01/02/19 01/19/19 Unknown Rx Carvedilol [Coreg] 12.5 mg PO BID #60 tablet 01/23/19 Unknown Rx Active Medications: Generic Name Dose Route Start Last Admin Trade Name Freq PRN Reason Stop Dose Admin Acetaminophen 650 mg 01/29/19 23:15 Tylenol PO Q4H PRN Pain MILD(1-3)/Fever >100.5/PRICE Albuterol 2.5 mg 01/29/19 23:19 Proventil IH Q3HRT PRN Shortness Of Breath Albuterol/Ipratropium 1 ampul 01/30/19 08:00 01/30/19 21:35 Duoneb *Not For Prn Use* IH 1 ampul BIDRT NORA Administration Lipase/Protease/Amylase 1 each 01/30/19 13:35 Nickie Moore 10,500 Unit FEEDTUBE PRN PRN For Clogged Feeding Tube Ascorbic Acid 500 mg 01/30/19 10:00 01/31/19 10:20 Vitamin C FEEDTUBE 500 mg BID NORA Administration Atorvastatin Calcium 40 mg 01/30/19 22:00 01/30/19 22:37 Lipitor FEEDTUBE 40 mg QHS NORA Administration Carvedilol 12.5 mg 01/30/19 10:00 01/31/19 10:20 Coreg PO 12.5 mg BID NORA Administration Sodium Chloride 1,000 mls @ 50 mls/hr 01/29/19 23:00 Nacl 0.45% 1000 Ml IV DIRECT NORA Cefepime HCl 2 gm in 100 mls @ 200 mls/hr 01/31/19 10:00 01/31/19 10:20 Maxipime/Ns 2 Gm/100 Ml IV 200 mls/hr Q24H NORA Administration Protocol Sodium Chloride 100 mls @ 999 mls/hr 01/30/19 14:02 Nacl 0.9% IV SANDEEP PRN Hypotension Levetiracetam 500 mg 01/29/19 23:30 01/31/19 10:45 Keppra FEEDTUBE 500 mg Q12H NORA Administration Multivitamins 5 ml 01/30/19 10:00 01/31/19 10:20 Centrum Liq PO 5 ml DAILY NORA Administration Ondansetron HCl 4 mg 01/29/19 23:15 Zofran IV Q4H PRN Nausea And Vomiting Simple Syrup 15 ml 01/30/19 13:35 Simple Syrup FEEDTUBE PRN PRN Hypoglycemia Simple Syrup 30 ml 01/30/19 13:35 Simple Syrup FEEDTUBE PRN PRN Hypoglycemia Sodium Bicarbonate 325 mg 01/30/19 13:35 Sodium Bicarbonate FEEDTUBE PRN PRN For Clogged Feeding Tube Sodium Chloride 10 ml 01/30/19 10:00 01/31/19 00:39 Sodium Chloride Flush Syringe 10 Ml IV Not Given BID NORA Sodium Chloride 10 ml 01/29/19 23:15 Sodium Chloride Flush Syringe 10 Ml IV PRN PRN LINE FLUSH Tamsulosin HCl 0.4 mg 01/30/19 10:00 01/31/19 10:20 Flomax PO 0.4 mg QDAY NORA Administration Zinc Sulfate 220 mg 01/30/19 10:00 01/31/19 10:21 Zinc Sulfate PO 220 mg QDAY NORA Administration
--- NOTE | 2019-01-31 13:31 | Progress Note ---
Assessment and Plan Assessment and plan: Patient is 68-year-old male who is a resident of [facility] with history of hypertension, CVA, BPH, CHF, contracture upper and lower extremities, sacral pressure ulcer, bilateral lower extremity pressure ulcer, CAD, DM, seizure, COPD, dementia who presents to [facility] ED for evaluation of abnormal labs. Patient admitted for emergent initiation of dialysis. * pCXR IMPRESSION: 1. Linear radiopaque structure projects over the mediastinum not certain of the nature of this object. There is airspace opacity in the right midlung zone. Pneumonia -CXR shows opacity in the right midlung zone -Cultures pending -On IV Abx -ID consulted Leukocytosis with sepsis poa -likely secondary to pneumonia -WBC 13.1 -TMAX 100.5 -Cultures pending -On IV abx -GPC bacteremia - possible contaminant with 1/4 bottle positive, though more may yet grow. Can start vancomycin for now and stop if cultures return a contaminant. If true infection likely from multiple chronic wounds Chronic anemia -Hbg on admission 6.8 -No s/s of active bleeding -Receiving 1u PRBC -Continue to monitor hgb -Transfuse prn MÓNICA -Imposed CKD -Cr on admission 3.3 ( up from 2.6 on 01/23/19) -Baseline around 1.0 -Avoid nephrotoxic agents -Gentle hydration with IVF -Renal dose all meds -Nephrology consulted Hyperkalemia -Potassium on admission 6.8 -Received hyperkalemic cocktail in ED -Repeat labs pending -Nephrology following Hx BPH -Chaudhary catheter -Continue Flomax Hx Seizure disorder -continue Keppra Hypertension -Continue to monitor BP -Continue Coreg Hx of Pressure Ulcers -Sacral and BLE -Wound care consult pending DM 2 -POC BG monitoring -SSI coverage COPD -Albuterol prn Chronic debility -Contracture of extremities x4 -PT/OT eval pending Severe malnutrition -Albumin 1.7 -Pt has PEG Tube -Dietitian consulted for mgmt of TF Hx Dementia Hx CHF Hx CVA DVT PPX -SCD's History Interval history: Patient was seen and examined. Follow-up on current diagnosis of Sepsis. No overnight events reported to me. Patient denies any chest pain, shortness breath, nausea/vomiting or severe headaches. Imaging, nursing note, chart, labs and old chart reviewed. Discussed with patient. Hospitalist Physical - Physical exam Narrative exam: Gen: chronically disable, mostly nonverbal HEENT: NCAT, EOMI, PERRL, OP Clear Neck: supple, no adenopathy, no thyromegaly, no JVD CVS/Heart: RRR, normal S1S2, pulses present bilaterally Chest/Lungs: CTA B, Symmetrical chest expansion, good air entry bilaterally GI/Abdomen: soft, NTND, good bowel sounds, no guarding or rebound /Bladder: no suprapubic tenderness, no CVA or paraspinal tenderness Extermity/Skin: multiple pressure ulcers variable stages, 3-4 MSK: contracted x 4, neck flex to chest, in a chronic position Neuro: CN 2-12 grossly intact, no new focal deficits Psych: calm - Constitutional Vitals: Temp Pulse Resp BP Pulse Ox 98.0 F 88 18 96/62 96 01/31/19 04:41 01/31/19 00:02 01/31/19 04:41 01/31/19 04:41 01/31/19 00:02 Results - Labs CBC & Chem 7: 01/30/19 08:54 01/30/19 08:54 Labs: Laboratory Last Values WBC 12.6 K/mm3 (4.5-11.0) H 01/30/19 08:54 RBC 2.79 M/mm3 (3.65-5.03) L 01/30/19 08:54 Hgb 7.7 gm/dl (11.8-15.2) L 01/30/19 08:54 Hct 23.9 % (35.5-45.6) L 01/30/19 08:54 MCV 86 fl (84-94) 01/30/19 08:54 MCH 28 pg (28-32) 01/30/19 08:54 MCHC 32 % (32-34) 01/30/19 08:54 RDW 18.3 % (13.2-15.2) H 01/30/19 08:54 Plt Count 358 K/mm3 (140-440) 01/30/19 08:54 Lymph % (Auto) 8.7 % (13.4-35.0) L 01/30/19 08:54 [place] % (Auto) 7.5 % (0.0-7.3) H 01/30/19 08:54 Eos % (Auto) 1.3 % (0.0-4.3) 01/30/19 08:54 Baso % (Auto) 1.0 % (0.0-1.8) 01/30/19 08:54 Lymph # 1.1 K/mm3 (1.2-5.4) L 01/30/19 08:54 [place] # 0.9 K/mm3 (0.0-0.8) H 01/30/19 08:54 Eos # 0.2 K/mm3 (0.0-0.4) 01/30/19 08:54 Baso # 0.1 K/mm3 (0.0-0.1) 01/30/19 08:54 Seg Neutrophils % 81.5 % (40.0-70.0) H 01/30/19 08:54 Seg Neutrophils # 10.3 K/mm3 (1.8-7.7) H 01/30/19 08:54 Sodium 150 mmol/L (137-145) H 01/30/19 08:54 Potassium 5.9 mmol/L (3.6-5.0) H 01/30/19 08:54 Potassium 5.9 mmol/L (3.6-5.0) H 01/30/19 08:54 Chloride 105.5 mmol/L (98-107) 01/30/19 08:54 Carbon Dioxide 29 mmol/L (22-30) 01/30/19 08:54 21 mmol/L 01/30/19 08:54 BUN 114 mg/dL (9-20) H 01/30/19 08:54 3.5 mg/dL (0.8-1.5) H 01/30/19 08:54 Estimated GFR 21 ml/min 01/30/19 08:54 33 % 01/30/19 08:54 Glucose 91 mg/dL (75-100) 01/30/19 08:54 POC Glucose 120 (70-105) H 01/31/19 11:50 355 Mosm/kg 01/30/19 08:54 Lactic Acid 0.80 mmol/L (0.7-2.0) 01/29/19 21:00 7.0 mg/dL (3.5-7.6) 01/30/19 08:54 Calcium 9.0 mg/dL (8.4-10.2) 01/30/19 08:54 < 0.20 mg/dL (0.1-1.2) 01/29/19 19:30 AST 25 units/L (5-40) 01/29/19 19:30 ALT 13 units/L (7-56) 01/29/19 19:30 115 units/L (35-129) 01/29/19 19:30 62 units/L (55-170) 01/30/19 08:54 7.0 g/dL (6.3-8.2) 01/29/19 19:30 1.7 g/dL (3.9-5) L 01/29/19 19:30 0.3 % 01/29/19 19:30 Prostate Specific Ag 0.03 ng/mL (0.00-4.00) 01/30/19 08:54 Yellow (Yellow) 01/30/19 03:30 Clear (Clear) 01/30/19 03:30 9.0 (5.0-7.0) H 01/30/19 03:30 Ur Specific [place] 1.013 (1.003-1.030) 01/30/19 03:30 100 mg/dl mg/dL (Negative) 01/30/19 03:30 Neg mg/dL (Negative) 01/30/19 03:30 Neg mg/dL (Negative) 01/30/19 03:30 Neg (Negative) 01/30/19 03:30 Neg (Negative) 01/30/19 03:30 Neg (Negative) 01/30/19 03:30 < 2.0 mg/dL (<2.0) 01/30/19 03:30 Ur Leukocyte Esterase Tr (Negative) 01/30/19 03:30 7.0 /HPF (0.0-6.0) H 01/30/19 03:30 5.0 /HPF (0.0-6.0) 01/30/19 03:30 U Epithel Cells (Auto) < 1.0 /HPF (0-13.0) 01/29/19 22:15 1+ /HPF (Negative) 01/30/19 03:30 Few /HPF 01/30/19 03:30 1+ /HPF 01/30/19 03:30 Hepatitis A IgM Ab Non-reactive (NonReactive) 01/30/19 08:54 Hep Bs Antigen Non-reactive (Negative) 01/30/19 08:54 Hep B Core IgM Ab Non-reactive (NonReactive) 01/30/19 08:54 Non-reactive (NonReactive) 01/30/19 08:54 Blood Type O POSITIVE 01/29/19 20:50 Antibody Screen Negative 01/29/19 20:50 Crossmatch See Detail 01/29/19 20:50 Active Medications - Current Medications Current Medications: Generic Name Dose Route Start Last Admin Trade Name Freq PRN Reason Stop Dose Admin Acetaminophen 650 mg 01/29/19 23:15 Tylenol PO Q4H PRN Pain MILD(1-3)/Fever >100.5/PRICE Albuterol 2.5 mg 01/29/19 23:19 Proventil IH Q3HRT PRN Shortness Of Breath Albuterol/Ipratropium 1 ampul 01/30/19 08:00 01/30/19 21:35 Duoneb *Not For Prn Use* IH 1 ampul BIDRT NORA Administration Lipase/Protease/Amylase 1 each 01/30/19 13:35 Pancreaze 10,500 Unit FEEDTUBE PRN PRN For Clogged Feeding Tube Ascorbic Acid 500 mg 01/30/19 10:00 01/31/19 10:20 Vitamin C FEEDTUBE 500 mg BID NORA Administration Atorvastatin Calcium 40 mg 01/30/19 22:00 01/30/19 22:37 Lipitor FEEDTUBE 40 mg QHS NORA Administration Carvedilol 12.5 mg 01/30/19 10:00 01/31/19 10:20 Coreg PO 12.5 mg BID NORA Administration Sodium Chloride 1,000 mls @ 50 mls/hr 01/29/19 23:00 Nacl 0.45% 1000 Ml IV DIRECT NORA Cefepime HCl 2 gm in 100 mls @ 200 mls/hr 01/31/19 10:00 01/31/19 10:20 Maxipime/Ns 2 Gm/100 Ml IV 200 mls/hr Q24H NORA Administration Protocol Sodium Chloride 100 mls @ 999 mls/hr 01/30/19 14:02 Nacl 0.9% IV SANDEEP PRN Hypotension Levetiracetam 500 mg 01/29/19 23:30 01/31/19 10:45 Keppra FEEDTUBE 500 mg Q12H NORA Administration Multivitamins 5 ml 01/30/19 10:00 01/31/19 10:20 Centrum Liq PO 5 ml DAILY NORA Administration Ondansetron HCl 4 mg 01/29/19 23:15 Zofran IV Q4H PRN Nausea And Vomiting Simple Syrup 15 ml 01/30/19 13:35 Simple Syrup FEEDTUBE PRN PRN Hypoglycemia Simple Syrup 30 ml 01/30/19 13:35 Simple Syrup FEEDTUBE PRN PRN Hypoglycemia Sodium Bicarbonate 325 mg 01/30/19 13:35 Sodium Bicarbonate FEEDTUBE PRN PRN For Clogged Feeding Tube Sodium Chloride 10 ml 01/30/19 10:00 01/31/19 00:39 Sodium Chloride Flush Syringe 10 Ml IV Not Given BID NORA Sodium Chloride 10 ml 01/29/19 23:15 Sodium Chloride Flush Syringe 10 Ml IV PRN PRN LINE FLUSH Tamsulosin HCl 0.4 mg 01/30/19 10:00 01/31/19 10:20 Flomax PO 0.4 mg QDAY NORA Administration Zinc Sulfate 220 mg 01/30/19 10:00 01/31/19 10:21 Zinc Sulfate PO 220 mg QDAY NORA Administration Nutrition/Malnutrition Assess - Dietary Evaluation Nutrition/Malnutrition Findings: Nutrition Notes Start: 01/30/19 11:40 Freq: Status: Active Protocol: Document 01/30/19 11:40 RS (Rec: 01/30/19 13:34 RS [id number]) Co-Sign 01/30/19 11:40 RM Nutrition Notes Need for Assessment generated from: MD Order Initial or Follow up Assessment Current Diagnosis Acute Kidney Injury,CKD(stage I-IV),COPD,Coronary Artery Disease,Diabetes,Sepsis, Hypertension,Heart Failure, Stroke Other Pertinent Diagnosis Multiple wounds, Dementia, seizures, PEG, on HD Current Diet Dietary Supplements Labs/Tests Na: 146 K: 6.1 Pertinent Medications Reviewed Height 6 ft Weight 95.25 kg [place] Body Weight (kg) 80.90 BMI 28.5 Weight Status Overweight Subjective/Other Information MD consult for TF. Pt observed for MST screen. Pt could not be physically evaluated for malnutrition d/t him hunched over sleeping to the side, but edema was observed in UE. Observed breakfast tray, w/ 0% consumed. Burn Absent Trauma Absent GI Symptoms None Minimum of two criteria No #1 Nutrition Diagnosis Inadequate oral intake Etiology Hx of stroke, Dementia As Evidenced by Signs and Symptoms pt requiring EN to meet nutrional needs Is patient on ventilator? No Is Patient Ambulatory and/or Out of Bed No REE-([facility]-confined to bed) 2382.292 Calculation Used for Recommendations [facility] Additional Notes Protien needs (1.2-1.5g/kg): 114-143g/day Fluid needs: 1.0-1.5L/day Nutrition Intervention Change Diet Order: Start TF Nutrition Support: Nepro at 50ml/hr. Water flush 200mL q4hr until hypernatremia resolves Water flush 100mL q4hrs after hypernatremia resolves Kcal 2,160 Protein (gm) 97 Fluid (mL) 872 Add Supplement/Snack (indicate name/kcal Mario BID /protein ) Provides kCal: 190 Provides Protein (gm) 5 Goal #1 Meet at least 75% of kcal/pro needs via TF Goal #2 TF tolerance Anticipated Discharge Needs: TF Follow-Up By: 02/03/19 Additional Comments F/U for TF tolerance, renal labs, HD status
[2019-01-31] MEDS: DUONEB *Not for PRN Use IH SCH ×2 (13:54→21:49)
--- NOTE | 2019-01-31 19:45 | Progress Note ---
Assessment and Plan Cultures: 01/29 BCX - 2/4 GPC in clusters A/P: 68 yo M PMhx multiple chronic sacral and other wounds, recurrent UTI, CVA, BPH, CHF, contractures, DM2, COPD, dementia admitted for emergent initiation of dialysis. 1. Acute sepsis - present on admission with leukocytosis and tachycardia. Secondary to bacteremia vs UTI. 2. GPC bacteremia - possible contaminant with 1/4 bottle positive, though more may yet grow. Can start vancomycin for now and stop if cultures return a contaminant. If true infection likely from multiple chronic wounds 3. Positive urinalysis - Urine culture with Ashley albicans.Not a urinary pathogen. Stop cefepime. 4. Multiple chronic wounds - encourage ongoing wound care. Minimal utility in treating, please do not culture unless they appear acutely infected with purulence. 5. ESRD on HD - now with emergent dialysis, will dose antibiotics accordingly. 6. DM2 7. COPD 8. Dementia Recs: - start vancomycin dose per pharmacy. Appreciate their assistance. Goal trough 15-20 - stop cefepime - follow vanc troughs and renal function while on vancomycin - follow up blood cultures. Thank you for the consult, we will continue to follow. Stacie Wu MD [facility] M: [phone] O: [phone] F: [phone] Subjective Date of service: 01/31/19 Interval history: NO acute change. Objective - Exam Narrative Exam: Constitutional: Altered, does not follow commands. Head, Ears, Nose: Normocephalic, atraumatic. External ears, nose normal Eyes: Conjunctivae/corneas clear. No icterus. No ptosis. Neck: Supple, no meningeal signs Oral: dentition fair, no thrush Cardiovascular: S1, S2 normal. Respiratory: Good air entry, clear to auscultation bilaterally GI: Soft, non-tender; bowel sounds normal. No peritoneal signs. Musculoskeletal: No pedal edema, no cyanosis. Contractures Skin: Numerous bilateral LE wounds and sacral wound Hem/Lymphatic: No palpable cervical or supraclavicular nodes. No lymphangitis Neurological: Awake, disoriented - Constitutional Vitals: Vital Signs Temp Pulse Resp BP Pulse Ox 100.1 F H 10 L 20 89/54 97 01/31/19 11:41 01/31/19 16:43 01/31/19 17:00 01/31/19 11:41 01/31/19 17:00 Temperature -Last 24 Hours Temperature 100.1 F Temperature 100.2 F Temperature 98.0 F Temperature 98.0 F - Labs CBC & Chem 7: 01/30/19 08:54 01/31/19 13:08 Labs: Abnormal lab results 01/31/19 01/31/19 01/31/19 Range/Units 11:50 13:08 18:08 Sodium 148 H (137-145) mmol/L BUN 69 H (9-20) mg/dL Creatinine 2.6 H (0.8-1.5) mg/dL Glucose 110 H (75-100) mg/dL POC Glucose 120 H 113 H (70-105)
[2019-02-01] MEDS: SODIUM CHLORIDE FLUSH SYRINGE 10 ML IV SCH ×3 (08:01→22:38)
[2019-02-01] MEDS: DUONEB *Not for PRN Use IH SCH ×2 (08:12→20:52)
[2019-02-01] MEDS ORDERED: SODIUM BICARBONATE FEEDTUBE PRN (08:45)
[2019-02-01] MEDS ORDERED: SIMPLE SYRUP FEEDTUBE PRN ×2 (08:45)
--- NOTE | 2019-02-01 11:01 | Progress Note ---
Subjective Interval history: Patient was seen today for follow-up of multiple renal related issues has had hemodialysis yesterday, he is much more alert awake Potassium currently pending Interdisciplinary notes that also reviewed Events of 24 hours vitals labs intake output medications were reviewed Past medical history: Reviewed Family history: Reviewed Social history: Reviewed Allergies: Reviewed Physical examination: Vitals: Reviewed HEENT: No pallor or icterus oral mucosa moist Neck: Supple no JVD no thyromegaly Chest: Bilateral clear to auscultation anteriorly Heart: Regular rate and rhythm S1-S2 heard no S3-S4 Abdomen: Soft nontender no voluntary guarding rigidity rebound Extremity: Dry skin less than 1+ peripheral edema Psychiatric: No evidence of agitation and aggression noted Dermatology: No petechial rashes Labs and x-rays: Reviewed from today Assessment and plan Severe renal failure with hyperkalemia/ d/c vas cath Patient received one dialysis treatment Will order for follow-up labs patient appears to be mentally much more alert awake We will reassess for dialysis tomorrow morning I have not heard from the family member yet We'll continue to follow and make recommendation for renal standpoint Objective - Vital Signs Vital signs: Vital Signs - 12hr 02/01/19 02/01/19 02/01/19 00:00 00:49 03:59 Temperature 97.8 F 98.4 F Pulse Rate 67 68 77 Pulse Rate [ Throughout] Respiratory 18 18 Rate Respiratory Rate [ Throughout] Blood Pressure 98/51 97/43 O2 Sat by Pulse 98 88 Oximetry 02/01/19 02/01/19 02/01/19 08:00 08:25 08:47 Temperature 98.2 F Pulse Rate 76 Pulse Rate [ 71 Throughout] Respiratory 18 Rate Respiratory 27 H Rate [ Throughout] Blood Pressure 140/59 O2 Sat by Pulse 97 92 Oximetry 02/01/19 08:50 Temperature Pulse Rate 72 Pulse Rate [ Throughout] Respiratory Rate Respiratory Rate [ Throughout] Blood Pressure O2 Sat by Pulse Oximetry - Lab 01/30/19 08:54 01/31/19 13:08 Most recent lab results Calcium 9.0 mg/dL (8.4-10.2) 01/31/19 13:08 Medications & Allergies - Medications Allergies/Adverse Reactions: Allergies lisinopril Allergy (Verified 10/01/18 15:17) Unknown tramadol Allergy (Verified 07/29/18 18:39) Unknown Home Medications: Home Medications Medication Instructions Recorded Confirmed Last Taken Type Multivit-Min/Iron Fum/Folic AC 1 each PO DAILY 03/24/18 02/01/19 1 Day Ago History [Itqwh-Nicbdup-Amxcdhyt Tablet] ~01/31/19 Acetaminophen 650 mg NGTUBE Q6H PRN 07/30/18 02/01/19 1 Day Ago History ~01/31/19 Ipratropium/Albuterol Sulfate 1 ampul IH BID 07/30/18 02/01/19 1 Day Ago History [DUONEB *Not for PRN Use*] ~01/31/19 Tamsulosin [Flomax] 0.4 mg PO QDAY 07/30/18 02/01/19 1 Day Ago History ~01/31/19 Vit C/Ascorbate Calcium,Sodium 500 mg NGTUBE BID 07/30/18 02/01/19 1 Day Ago History [Vitamin C 500 mg/15 ml Liquid] ~01/31/19 Zinc Sulfate 220 mg NGTUBE QDAY 07/30/18 02/01/19 1 Day Ago History ~01/31/19 levETIRAcetam [Keppra INJ] 500 mg PO Q12H 07/30/18 02/01/19 1 Day Ago History ~01/31/19 Phosphorus #1 [K-Phos Neutral] 250 mg PO QID #30 tablet 08/23/18 02/01/19 1 Day Ago Rx ~01/31/19 AtorvaSTATin [Lipitor] 40 mg NGTUBE QHS #30 tablet 10/21/18 02/01/19 1 Day Ago Rx ~01/31/19 Insulin Aspart [NovoLOG 100 0 unit SQ AC 11/01/18 02/01/19 1 Day Ago History UNITS/ML VIAL] ~01/31/19 ALBUTEROL NEB's [Proventil 0.083% 2.5 mg IH Q3HRT PRN nebu 12/27/18 02/01/19 1 Day Ago Rx NEBS] ~01/31/19 Cefuroxime Axetil [Ceftin] 500 mg PO Q12H #140 ml 01/02/19 02/01/19 1 Day Ago Rx ~01/31/19 Carvedilol [Coreg] 12.5 mg PO BID #60 tablet 01/23/19 02/01/19 1 Day Ago Rx ~01/31/19 Active Medications: Generic Name Dose Route Start Last Admin Trade Name Freq PRN Reason Stop Dose Admin Acetaminophen 650 mg 01/29/19 23:15 Tylenol PO Q4H PRN Pain MILD(1-3)/Fever >100.5/PRICE Albuterol 2.5 mg 01/29/19 23:19 01/31/19 16:25 Proventil IH 2.5 mg Q3HRT PRN Administration Shortness Of Breath Albuterol/Ipratropium 1 ampul 01/30/19 08:00 02/01/19 08:12 Duoneb *Not For Prn Use* IH 1 ampul BIDRT NORA Administration Lipase/Protease/Amylase 1 each 02/01/19 08:45 Pancreazadela Moore 10,500 Unit FEEDTUBE PRN PRN For Clogged Feeding Tube Ascorbic Acid 500 mg 01/30/19 10:00 01/31/19 22:15 Vitamin C FEEDTUBE 500 mg BID NORA Administration Atorvastatin Calcium 40 mg 01/30/19 22:00 01/31/19 22:15 Lipitor FEEDTUBE 40 mg QHS NORA Administration Carvedilol 12.5 mg 01/30/19 10:00 01/31/19 22:15 Coreg PO 12.5 mg BID NORA Administration Sodium Chloride 1,000 mls @ 50 mls/hr 01/29/19 23:00 Nacl 0.45% 1000 Ml IV DIRECT NORA Sodium Chloride 100 mls @ 999 mls/hr 01/30/19 14:02 Nacl 0.9% IV SANDEEP PRN Hypotension Levetiracetam 500 mg 01/29/19 23:30 01/31/19 22:44 Keppra FEEDTUBE 500 mg Q12H NORA Administration Multivitamins 5 ml 01/30/19 10:00 01/31/19 10:20 Centrum Liq PO 5 ml DAILY NORA Administration Ondansetron HCl 4 mg 01/29/19 23:15 Zofran IV Q4H PRN Nausea And Vomiting Simple Syrup 15 ml 02/01/19 08:45 Simple Syrup FEEDTUBE PRN PRN Hypoglycemia Simple Syrup 30 ml 02/01/19 08:45 Simple Syrup FEEDTUBE PRN PRN Hypoglycemia Sodium Bicarbonate 325 mg 01/30/19 13:35 Sodium Bicarbonate FEEDTUBE PRN PRN For Clogged Feeding Tube Sodium Bicarbonate 325 mg 02/01/19 08:45 Sodium Bicarbonate FEEDTUBE PRN PRN For Clogged Feeding Tube Sodium Chloride 10 ml 01/30/19 10:00 02/01/19 08:01 Sodium Chloride Flush Syringe 10 Ml IV Not Given BID NORA Sodium Chloride 10 ml 01/29/19 23:15 Sodium Chloride Flush Syringe 10 Ml IV PRN PRN LINE FLUSH Tamsulosin HCl 0.4 mg 01/30/19 10:00 01/31/19 10:20 Flomax PO 0.4 mg QDAY NORA Administration Zinc Sulfate 220 mg 01/30/19 10:00 01/31/19 10:21 Zinc Sulfate PO 220 mg QDAY NORA Administration
--- NOTE | 2019-02-01 11:50 | Progress Note ---
Assessment and Plan Cultures: 01/29 BCX - different CoNS A/P: 68 yo M PMhx multiple chronic sacral and other wounds, recurrent UTI, CVA, BPH, CHF, contractures, DM2, COPD, dementia admitted for emergent initiation of dialysis. 1. Acute sepsis - present on admission with leukocytosis and tachycardia. 2. CoNS bacteremia - multiple blood cultures positive but with different morphologies, hence highly likely a contaminant. d/c vancomycin. 3. Positive urinalysis - Urine culture with Ashley albicans. Not a urinary pa thogen. Stopped cefepime. Candiduria does not need treatment. 4. Multiple chronic wounds - encourage ongoing wound care. Minimal utility in treating, please do not culture unless they appear acutely infected with purulence. 5. Acute renal failure required emergent dialysis: Nephrology following. will dose antibiotics accordingly. 6. DM2 7. COPD 8. Dementia Recs: - d/c vancomycin - continue wound care - overall poor prognosis as has been discussed several times previously with his family members. He remains at high risk of recurrent infections with MDROs and his wounds are non curable Marcos Dillon MD, FACP [facility] ([facility] C: [phone] O: [phone] F: [phone] Subjective Date of service: 02/01/19 Interval history: No verbal. No fever. Poor historian. Objective - Exam Narrative Exam: Constitutional: awake, does not follow commands. Head, Ears, Nose: Normocephalic, atraumatic. External ears, nose normal Eyes: Conjunctivae/corneas clear. No icterus. No ptosis. Neck: Supple, no meningeal signs Oral: no thrush Cardiovascular: S1, S2 normal. Respiratory: Good air entry, clear to auscultation bilaterally GI: Soft, non-tender; bowel sounds normal. No peritoneal signs. Chaudhary + Musculoskeletal: No pedal edema, no cyanosis. Contractures Skin: Numerous bilateral LE wounds and sacral wound Hem/Lymphatic: No palpable cervical or supraclavicular nodes. No lymphangitis Neurological: Awake, doesn't follow commands - Constitutional Vitals: Vital Signs Temp Pulse Resp BP Pulse Ox 98.2 F 72 18 140/59 92 02/01/19 08:47 02/01/19 08:50 02/01/19 08:47 02/01/19 08:47 02/01/19 08:47 Temperature -Last 24 Hours Temperature 98.2 F Temperature 98.4 F Temperature 97.8 F Temperature 122.0 F - Labs CBC & Chem 7: 01/30/19 08:54 01/31/19 13:08 Labs: Abnormal lab results 01/31/19 01/31/19 01/31/19 Range/Units 11:50 13:08 18:08 Sodium 148 H (137-145) mmol/L BUN 69 H (9-20) mg/dL Creatinine 2.6 H (0.8-1.5) mg/dL Glucose 110 H (75-100) mg/dL POC Glucose 120 H 113 H (70-105) 02/01/19 02/01/19 02/01/19 Range/Units 00:57 06:08 08:51 Sodium (137-145) mmol/L BUN (9-20) mg/dL Creatinine (0.8-1.5) mg/dL Glucose (75-100) mg/dL POC Glucose 129 H 117 H 142 H (70-105)
[2019-02-01] MEDS: Centrum Liq PO SCH (11:55)
[2019-02-01] MEDS: VITAMIN C FEEDTUBE SCH ×2 (11:55→22:37)
[2019-02-01] MEDS: ZINC SULFATE PO SCH (11:55)
[2019-02-01] MEDS: FLOMAX PO SCH (11:55)
[2019-02-01] MEDS: COREG PO SCH ×2 (11:56→22:38)
[2019-02-01] MEDS: KEPPRA FEEDTUBE SCH ×2 (12:18→22:37)
--- NOTE | 2019-02-01 12:25 | Progress Note ---
Assessment and Plan Assessment and plan: Patient is 68-year-old male who is a resident of [facility] with history of hypertension, CVA, BPH, CHF, contracture upper and lower extremities, sacral pressure ulcer, bilateral lower extremity pressure ulcer, CAD, DM, seizure, COPD, dementia who presents to [facility] ED for evaluation of abnormal labs. Patient admitted for emergent initiation of dialysis. * pCXR IMPRESSION: 1. Linear radiopaque structure projects over the mediastinum not certain of the nature of this object. There is airspace opacity in the right midlung zone. Pneumonia -CXR shows opacity in the right midlung zone -Cultures pending -On IV Abx -ID consulted Leukocytosis with sepsis poa -likely secondary to pneumonia -WBC 13.1 -TMAX 100.5 -Cultures pending -On IV abx -GPC bacteremia - possible contaminant with 1/4 bottle positive, though more may yet grow. Can start vancomycin for now and stop if cultures return a contaminant. If true infection likely from multiple chronic wounds Chronic anemia -Hbg on admission 6.8 -No s/s of active bleeding -Receiving 1u PRBC -Continue to monitor hgb -Transfuse prn MÓNICA, new ESRD with initiation of HD on 01/30/19 -Imposed CKD -Cr on admission 3.3 ( up from 2.6 on 01/23/19) -Baseline around 1.0 -Avoid nephrotoxic agents -Gentle hydration with IVF -Renal dose all meds -Nephrology consulted Hyperkalemia -Potassium on admission 6.8 -Received hyperkalemic cocktail in ED -Repeat labs pending -Nephrology following Hx BPH -Chaudhary catheter -Continue Flomax Hx Seizure disorder -continue Keppra Hypertension -Continue to monitor BP -Continue Coreg Hx of Pressure Ulcers -Sacral and BLE -Wound care consult pending DM 2 -POC BG monitoring -SSI coverage COPD -Albuterol prn Chronic debility -Contracture of extremities x4 -PT/OT eval pending Severe malnutrition -Albumin 1.7 -Pt has PEG Tube -Dietitian consulted for mgmt of TF Hx Dementia Hx CHF Hx CVA DVT PPX -SCD's Angela, (left message) or [phone] History Interval history: Patient was seen and examined. Follow-up on current diagnosis of Sepsis. No overnight events reported to me. Patient denies any chest pain, shortness breath, nausea/vomiting or severe headaches. Imaging, nursing note, chart, labs and old chart reviewed. Discussed with patient. Hospitalist Physical - Physical exam Narrative exam: Gen: chronically disable, mostly nonverbal HEENT: NCAT, EOMI, PERRL, OP Clear Neck: supple, no adenopathy, no thyromegaly, no JVD CVS/Heart: RRR, normal S1S2, pulses present bilaterally Chest/Lungs: CTA B, Symmetrical chest expansion, good air entry bilaterally GI/Abdomen: soft, NTND, good bowel sounds, no guarding or rebound /Bladder: no suprapubic tenderness, no CVA or paraspinal tenderness Extermity/Skin: multiple pressure ulcers variable stages, 3-4 MSK: contracted x 4, neck flex to chest, in a chronic position Neuro: CN 2-12 grossly intact, no new focal deficits Psych: calm - Constitutional Vitals: Temp Pulse Resp BP Pulse Ox 98.2 F 80 18 159/60 92 02/01/19 08:47 02/01/19 11:56 02/01/19 08:47 02/01/19 11:56 02/01/19 08:47 Results - Labs CBC & Chem 7: 01/30/19 08:54 01/31/19 13:08 Labs: Laboratory Last Values WBC 12.6 K/mm3 (4.5-11.0) H 01/30/19 08:54 RBC 2.79 M/mm3 (3.65-5.03) L 01/30/19 08:54 Hgb 7.7 gm/dl (11.8-15.2) L 01/30/19 08:54 Hct 23.9 % (35.5-45.6) L 01/30/19 08:54 MCV 86 fl (84-94) 01/30/19 08:54 MCH 28 pg (28-32) 01/30/19 08:54 MCHC 32 % (32-34) 01/30/19 08:54 RDW 18.3 % (13.2-15.2) H 01/30/19 08:54 Plt Count 358 K/mm3 (140-440) 01/30/19 08:54 Lymph % (Auto) 8.7 % (13.4-35.0) L 01/30/19 08:54 [place] % (Auto) 7.5 % (0.0-7.3) H 01/30/19 08:54 Eos % (Auto) 1.3 % (0.0-4.3) 01/30/19 08:54 Baso % (Auto) 1.0 % (0.0-1.8) 01/30/19 08:54 Lymph # 1.1 K/mm3 (1.2-5.4) L 01/30/19 08:54 [place] # 0.9 K/mm3 (0.0-0.8) H 01/30/19 08:54 Eos # 0.2 K/mm3 (0.0-0.4) 01/30/19 08:54 Baso # 0.1 K/mm3 (0.0-0.1) 01/30/19 08:54 Seg Neutrophils % 81.5 % (40.0-70.0) H 01/30/19 08:54 Seg Neutrophils # 10.3 K/mm3 (1.8-7.7) H 01/30/19 08:54 Sodium 148 mmol/L (137-145) H 01/31/19 13:08 Potassium 4.2 mmol/L (3.6-5.0) D 01/31/19 13:08 Chloride 105.3 mmol/L (98-107) 01/31/19 13:08 Carbon Dioxide 28 mmol/L (22-30) 01/31/19 13:08 19 mmol/L 01/31/19 13:08 BUN 69 mg/dL (9-20) H 01/31/19 13:08 2.6 mg/dL (0.8-1.5) H 01/31/19 13:08 Estimated GFR 30 ml/min 01/31/19 13:08 27 % 01/31/19 13:08 Glucose 110 mg/dL (75-100) H 01/31/19 13:08 POC Glucose 142 (70-105) H 02/01/19 08:51 355 Mosm/kg 01/30/19 08:54 Lactic Acid 0.80 mmol/L (0.7-2.0) 01/29/19 21:00 7.0 mg/dL (3.5-7.6) 01/30/19 08:54 Calcium 9.0 mg/dL (8.4-10.2) 01/31/19 13:08 < 0.20 mg/dL (0.1-1.2) 01/29/19 19:30 AST 25 units/L (5-40) 01/29/19 19:30 ALT 13 units/L (7-56) 01/29/19 19:30 115 units/L (35-129) 01/29/19 19:30 62 units/L (55-170) 01/30/19 08:54 7.0 g/dL (6.3-8.2) 01/29/19 19:30 1.7 g/dL (3.9-5) L 01/29/19 19:30 0.3 % 01/29/19 19:30 Prostate Specific Ag 0.03 ng/mL (0.00-4.00) 01/30/19 08:54 Yellow (Yellow) 01/30/19 03:30 Clear (Clear) 01/30/19 03:30 9.0 (5.0-7.0) H 01/30/19 03:30 Ur Specific [place] 1.013 (1.003-1.030) 01/30/19 03:30 100 mg/dl mg/dL (Negative) 01/30/19 03:30 Neg mg/dL (Negative) 01/30/19 03:30 Neg mg/dL (Negative) 01/30/19 03:30 Neg (Negative) 01/30/19 03:30 Neg (Negative) 01/30/19 03:30 Neg (Negative) 01/30/19 03:30 < 2.0 mg/dL (<2.0) 01/30/19 03:30 Ur Leukocyte Esterase Tr (Negative) 01/30/19 03:30 7.0 /HPF (0.0-6.0) H 01/30/19 03:30 5.0 /HPF (0.0-6.0) 01/30/19 03:30 U Epithel Cells (Auto) < 1.0 /HPF (0-13.0) 01/29/19 22:15 1+ /HPF (Negative) 01/30/19 03:30 Few /HPF 01/30/19 03:30 1+ /HPF 01/30/19 03:30 Random Vancomycin 9.3 ug/mL (0-40.0) 02/01/19 05:13 Hepatitis A IgM Ab Non-reactive (NonReactive) 01/30/19 08:54 Hep Bs Antigen Non-reactive (Negative) 01/30/19 08:54 Hep B Core IgM Ab Non-reactive (NonReactive) 01/30/19 08:54 Non-reactive (NonReactive) 01/30/19 08:54 Blood Type O POSITIVE 01/29/19 20:50 Antibody Screen Negative 01/29/19 20:50 Crossmatch See Detail 01/29/19 20:50 Active Medications - Current Medications Current Medications: Generic Name Dose Route Start Last Admin Trade Name Freq PRN Reason Stop Dose Admin Acetaminophen 650 mg 01/29/19 23:15 Tylenol PO Q4H PRN Pain MILD(1-3)/Fever >100.5/PRICE Albuterol 2.5 mg 01/29/19 23:19 01/31/19 16:25 Proventil IH 2.5 mg Q3HRT PRN Administration Shortness Of Breath Albuterol/Ipratropium 1 ampul 01/30/19 08:00 02/01/19 08:12 Duoneb *Not For Prn Use* IH 1 ampul BIDRT NORA Administration Lipase/Protease/Amylase 1 each 02/01/19 08:45 Pancreaze 10,500 Unit FEEDTUBE PRN PRN For Clogged Feeding Tube Ascorbic Acid 500 mg 01/30/19 10:00 02/01/19 11:55 Vitamin C FEEDTUBE 500 mg BID NORA Administration Atorvastatin Calcium 40 mg 01/30/19 22:00 01/31/19 22:15 Lipitor FEEDTUBE 40 mg QHS NORA Administration Carvedilol 12.5 mg 01/30/19 10:00 02/01/19 11:56 Coreg PO 12.5 mg BID NORA Administration Sodium Chloride 1,000 mls @ 50 mls/hr 01/29/19 23:00 Nacl 0.45% 1000 Ml IV DIRECT NORA Sodium Chloride 100 mls @ 999 mls/hr 01/30/19 14:02 Nacl 0.9% IV SANDEEP PRN Hypotension Levetiracetam 500 mg 01/29/19 23:30 02/01/19 12:18 Keppra FEEDTUBE 500 mg Q12H NORA Administration Multivitamins 5 ml 01/30/19 10:00 02/01/19 11:55 Centrum Liq PO 5 ml DAILY NORA Administration Ondansetron HCl 4 mg 01/29/19 23:15 Zofran IV Q4H PRN Nausea And Vomiting Simple Syrup 15 ml 02/01/19 08:45 Simple Syrup FEEDTUBE PRN PRN Hypoglycemia Simple Syrup 30 ml 02/01/19 08:45 Simple Syrup FEEDTUBE PRN PRN Hypoglycemia Sodium Bicarbonate 325 mg 01/30/19 13:35 Sodium Bicarbonate FEEDTUBE PRN PRN For Clogged Feeding Tube Sodium Bicarbonate 325 mg 02/01/19 08:45 Sodium Bicarbonate FEEDTUBE PRN PRN For Clogged Feeding Tube Sodium Chloride 10 ml 01/30/19 10:00 02/01/19 11:56 Sodium Chloride Flush Syringe 10 Ml IV 10 ml BID NORA Administration Sodium Chloride 10 ml 01/29/19 23:15 Sodium Chloride Flush Syringe 10 Ml IV PRN PRN LINE FLUSH Tamsulosin HCl 0.4 mg 01/30/19 10:00 02/01/19 11:55 Flomax PO 0.4 mg QDAY NORA Administration Zinc Sulfate 220 mg 01/30/19 10:00 02/01/19 11:55 Zinc Sulfate PO 220 mg QDAY NORA Administration Nutrition/Malnutrition Assess - Dietary Evaluation Nutrition/Malnutrition Findings: Nutrition Notes Start: 01/30/19 11:40 Freq: Status: Active Protocol: Document 01/30/19 11:40 RS (Rec: 01/30/19 13:34 RS [id number]) Co-Sign 01/30/19 11:40 RM Nutrition Notes Need for Assessment generated from: MD Order Initial or Follow up Assessment Current Diagnosis Acute Kidney Injury,CKD(stage I-IV),COPD,Coronary Artery Disease,Diabetes,Sepsis, Hypertension,Heart Failure, Stroke Other Pertinent Diagnosis Multiple wounds, Dementia, seizures, PEG, on HD Current Diet Dietary Supplements Labs/Tests Na: 146 K: 6.1 Pertinent Medications Reviewed Height 6 ft Weight 95.25 kg [place] Body Weight (kg) 80.90 BMI 28.5 Weight Status Overweight Subjective/Other Information MD consult for TF. Pt observed for MST screen. Pt could not be physically evaluated for malnutrition d/t him hunched over sleeping to the side, but edema was observed in UE. Observed breakfast tray, w/ 0% consumed. Burn Absent Trauma Absent GI Symptoms None Minimum of two criteria No #1 Nutrition Diagnosis Inadequate oral intake Etiology Hx of stroke, Dementia As Evidenced by Signs and Symptoms pt requiring EN to meet nutrional needs Is patient on ventilator? No Is Patient Ambulatory and/or Out of Bed No REE-([facility]-confined to bed) 2551.084 Calculation Used for Recommendations [facility] Additional Notes Protien needs (1.2-1.5g/kg): 114-143g/day Fluid needs: 1.0-1.5L/day Nutrition Intervention Change Diet Order: Start TF Nutrition Support: Nepro at 50ml/hr. Water flush 200mL q4hr until hypernatremia resolves Water flush 100mL q4hrs after hypernatremia resolves Kcal 2,160 Protein (gm) 97 Fluid (mL) 872 Add Supplement/Snack (indicate name/kcal Mario BID /protein ) Provides kCal: 190 Provides Protein (gm) 5 Goal #1 Meet at least 75% of kcal/pro needs via TF Goal #2 TF tolerance Anticipated Discharge Needs: TF Follow-Up By: 02/03/19 Additional Comments F/U for TF tolerance, renal labs, HD status
[2019-02-02 05:41] LABS: Hematocrit 20.1 % (35.5-45.6); Hemoglobin 6.5 gm/dl (11.8-15.2); Mean Corpuscular HGB Conc 32 % (32-34); Mean Corpuscular Volume 86 fl (84-94); Platelet Count 296 K/mm3 (140-440); Red Blood Count 2.33 M/mm3 (3.65-5.03)
[2019-02-02 05:44] LABS: Calcium 8.4 mg/dL (8.4-10.2)
[2019-02-02] MEDS: VITAMIN C FEEDTUBE SCH ×2 (09:25→21:23)
[2019-02-02] MEDS: COREG PO SCH ×2 (09:26→21:23)
[2019-02-02] MEDS: FLOMAX PO SCH (09:26)
[2019-02-02] MEDS: ZINC SULFATE PO SCH (09:27)
[2019-02-02] MEDS: SODIUM CHLORIDE FLUSH SYRINGE 10 ML IV SCH ×2 (09:27→21:32)
[2019-02-02] MEDS: Centrum Liq PO SCH (09:28)
[2019-02-02] MEDS: DUONEB *Not for PRN Use IH SCH ×2 (10:05→20:48)
--- NOTE | 2019-02-02 10:49 | Progress Note ---
Assessment and Plan Assessment and plan: Patient is 68-year-old male who is a resident of [facility] with history of hypertension, CVA, BPH, CHF, contracture upper and lower extremities, sacral pressure ulcer, bilateral lower extremity pressure ulcer, CAD, DM, seizure, COPD, dementia who presents to [facility] ED for evaluation of abnormal labs. Patient admitted for emergent initiation of dialysis. * pCXR IMPRESSION: 1. Linear radiopaque structure projects over the mediastinum not certain of the nature of this object. There is airspace opacity in the right midlung zone. MÓNICA, new ESRD with initiation of HD on 01/30/19 -Imposed CKD -Cr on admission 3.3 ( up from 2.6 on 01/23/19) -Baseline around 1.0 -Avoid nephrotoxic agents -Gentle hydration with IVF -Renal dose all meds -Nephrology consulted Pneumonia -CXR shows opacity in the right midlung zone -Cultures pending -On IV Abx -ID consulted Leukocytosis with sepsis poa -likely secondary to pneumonia -WBC 13.1 -TMAX 100.5 -Cultures pending -Off IV abx -ID is following Chronic anemia -Hbg on admission 6.8 -No s/s of active bleeding -Receiving 1u PRBC -Continue to monitor hgb -Transfuse prn Hyperkalemia -Potassium on admission 6.8 -Received hyperkalemic cocktail in ED -Repeat labs pending -Nephrology following Hx BPH -Chaudhary catheter -Continue Flomax Hx Seizure disorder -continue Keppra Hypertension -Continue to monitor BP -Continue Coreg Hx of Pressure Ulcers -Sacral and BLE -Wound care consult pending DM 2 -POC BG monitoring -SSI coverage COPD -Albuterol prn Chronic debility -Contracture of extremities x4 -PT/OT eval pending Severe malnutrition -Albumin 1.7 -Pt has PEG Tube -Dietitian consulted for mgmt of TF Hx Dementia Hx CHF Hx CVA DVT PPX -SCD's Angela, (left message) or [phone] History Interval history: Patient was seen and examined. Follow-up on current diagnosis of Sepsis. No overnight events reported to me. Patient denies any chest pain, shortness breath, nausea/vomiting or severe headaches. Imaging, nursing note, chart, labs and old chart reviewed. Discussed with patient. Hospitalist Physical - Physical exam Narrative exam: Gen: chronically disable, mostly nonverbal HEENT: NCAT, EOMI, PERRL, OP Clear Neck: supple, no adenopathy, no thyromegaly, no JVD CVS/Heart: RRR, normal S1S2, pulses present bilaterally Chest/Lungs: CTA B, Symmetrical chest expansion, good air entry bilaterally GI/Abdomen: soft, NTND, good bowel sounds, no guarding or rebound /Bladder: no suprapubic tenderness, no CVA or paraspinal tenderness Extermity/Skin: multiple pressure ulcers variable stages, 3-4 MSK: contracted x 4, neck flex to chest, in a chronic position Neuro: CN 2-12 grossly intact, no new focal deficits Psych: calm - Constitutional Vitals: Temp Pulse Resp BP Pulse Ox 98.0 F 98 H 28 H 144/54 96 02/02/19 07:35 02/02/19 10:03 02/02/19 10:03 02/02/19 09:26 02/02/19 10:03 Results - Labs CBC & Chem 7: 02/02/19 05:10 02/02/19 05:10 Labs: Laboratory Last Values WBC 8.7 K/mm3 (4.5-11.0) 02/02/19 05:10 RBC 2.33 M/mm3 (3.65-5.03) L 02/02/19 05:10 Hgb 6.5 gm/dl (11.8-15.2) L 02/02/19 05:10 Hct 20.1 % (35.5-45.6) L 02/02/19 05:10 MCV 86 fl (84-94) 02/02/19 05:10 MCH 28 pg (28-32) 02/02/19 05:10 MCHC 32 % (32-34) 02/02/19 05:10 RDW 18.0 % (13.2-15.2) H 02/02/19 05:10 Plt Count 296 K/mm3 (140-440) 02/02/19 05:10 Lymph % (Auto) 8.7 % (13.4-35.0) L 01/30/19 08:54 [place] % (Auto) 7.5 % (0.0-7.3) H 01/30/19 08:54 Eos % (Auto) 1.3 % (0.0-4.3) 01/30/19 08:54 Baso % (Auto) 1.0 % (0.0-1.8) 01/30/19 08:54 Lymph # 1.1 K/mm3 (1.2-5.4) L 01/30/19 08:54 [place] # 0.9 K/mm3 (0.0-0.8) H 01/30/19 08:54 Eos # 0.2 K/mm3 (0.0-0.4) 01/30/19 08:54 Baso # 0.1 K/mm3 (0.0-0.1) 01/30/19 08:54 Seg Neutrophils % 81.5 % (40.0-70.0) H 01/30/19 08:54 Seg Neutrophils # 10.3 K/mm3 (1.8-7.7) H 01/30/19 08:54 Sodium 145 mmol/L (137-145) 02/02/19 05:10 Potassium 3.8 mmol/L (3.6-5.0) 02/02/19 05:10 Chloride 101.1 mmol/L (98-107) 02/02/19 05:10 Carbon Dioxide 29 mmol/L (22-30) 02/02/19 05:10 19 mmol/L 02/02/19 05:10 BUN 76 mg/dL (9-20) H 02/02/19 05:10 3.3 mg/dL (0.8-1.5) H 02/02/19 05:10 Estimated GFR 23 ml/min 02/02/19 05:10 23 % 02/02/19 05:10 Glucose 110 mg/dL (75-100) H 02/02/19 05:10 POC Glucose 111 (70-105) H 02/02/19 07:08 355 Mosm/kg 01/30/19 08:54 Lactic Acid 0.80 mmol/L (0.7-2.0) 01/29/19 21:00 7.0 mg/dL (3.5-7.6) 01/30/19 08:54 Calcium 8.4 mg/dL (8.4-10.2) 02/02/19 05:10 < 0.20 mg/dL (0.1-1.2) 01/29/19 19:30 AST 25 units/L (5-40) 01/29/19 19:30 ALT 13 units/L (7-56) 01/29/19 19:30 115 units/L (35-129) 01/29/19 19:30 62 units/L (55-170) 01/30/19 08:54 7.0 g/dL (6.3-8.2) 01/29/19 19:30 1.7 g/dL (3.9-5) L 01/29/19 19:30 0.3 % 01/29/19 19:30 Prostate Specific Ag 0.03 ng/mL (0.00-4.00) 01/30/19 08:54 Yellow (Yellow) 01/30/19 03:30 Clear (Clear) 01/30/19 03:30 9.0 (5.0-7.0) H 01/30/19 03:30 Ur Specific [place] 1.013 (1.003-1.030) 01/30/19 03:30 100 mg/dl mg/dL (Negative) 01/30/19 03:30 Neg mg/dL (Negative) 01/30/19 03:30 Neg mg/dL (Negative) 01/30/19 03:30 Neg (Negative) 01/30/19 03:30 Neg (Negative) 01/30/19 03:30 Neg (Negative) 01/30/19 03:30 < 2.0 mg/dL (<2.0) 01/30/19 03:30 Ur Leukocyte Esterase Tr (Negative) 01/30/19 03:30 7.0 /HPF (0.0-6.0) H 01/30/19 03:30 5.0 /HPF (0.0-6.0) 01/30/19 03:30 U Epithel Cells (Auto) < 1.0 /HPF (0-13.0) 01/29/19 22:15 1+ /HPF (Negative) 01/30/19 03:30 Few /HPF 01/30/19 03:30 1+ /HPF 01/30/19 03:30 Random Vancomycin 9.3 ug/mL (0-40.0) 02/01/19 05:13 Hepatitis A IgM Ab Non-reactive (NonReactive) 01/30/19 08:54 Hep Bs Antigen Non-reactive (Negative) 01/30/19 08:54 Hep B Core IgM Ab Non-reactive (NonReactive) 01/30/19 08:54 Non-reactive (NonReactive) 01/30/19 08:54 Blood Type O POSITIVE 01/29/19 20:50 Antibody Screen Negative 01/29/19 20:50 Crossmatch See Detail 01/29/19 20:50 Active Medications - Current Medications Current Medications: Generic Name Dose Route Start Last Admin Trade Name Freq PRN Reason Stop Dose Admin Acetaminophen 650 mg 01/29/19 23:15 Tylenol PO Q4H PRN Pain MILD(1-3)/Fever >100.5/PRICE Albuterol 2.5 mg 01/29/19 23:19 01/31/19 16:25 Proventil IH 2.5 mg Q3HRT PRN Administration Shortness Of Breath Albuterol/Ipratropium 1 ampul 01/30/19 08:00 02/02/19 10:05 Duoneb *Not For Prn Use* IH 1 ampul BIDRT NORA Administration Lipase/Protease/Amylase 1 each 02/01/19 08:45 Pancreaze 10,500 Unit FEEDTUBE PRN PRN For Clogged Feeding Tube Ascorbic Acid 500 mg 01/30/19 10:00 02/02/19 09:25 Vitamin C FEEDTUBE 500 mg BID NORA Administration Atorvastatin Calcium 40 mg 01/30/19 22:00 02/01/19 22:37 Lipitor FEEDTUBE 40 mg QHS NORA Administration Carvedilol 12.5 mg 01/30/19 10:00 02/02/19 09:26 Coreg PO 12.5 mg BID NORA Administration Sodium Chloride 1,000 mls @ 50 mls/hr 01/29/19 23:00 Nacl 0.45% 1000 Ml IV DIRECT NORA Sodium Chloride 100 mls @ 999 mls/hr 01/30/19 14:02 Nacl 0.9% IV SANDEEP PRN Hypotension Sodium Chloride 500 mls @ 0 mls/hr 02/02/19 10:47 Nacl 0.9% 500 Ml IV 02/02/19 10:48 ONCE ONE As Directed Levetiracetam 500 mg 01/29/19 23:30 02/01/19 22:37 Keppra FEEDTUBE 500 mg Q12H NORA Administration Multivitamins 5 ml 01/30/19 10:00 02/02/19 09:28 Centrum Liq PO 5 ml DAILY NORA Administration Ondansetron HCl 4 mg 01/29/19 23:15 Zofran IV Q4H PRN Nausea And Vomiting Simple Syrup 15 ml 02/01/19 08:45 Simple Syrup FEEDTUBE PRN PRN Hypoglycemia Simple Syrup 30 ml 02/01/19 08:45 Simple Syrup FEEDTUBE PRN PRN Hypoglycemia Sodium Bicarbonate 325 mg 01/30/19 13:35 Sodium Bicarbonate FEEDTUBE PRN PRN For Clogged Feeding Tube Sodium Bicarbonate 325 mg 02/01/19 08:45 Sodium Bicarbonate FEEDTUBE PRN PRN For Clogged Feeding Tube Sodium Chloride 10 ml 01/30/19 10:00 02/02/19 09:27 Sodium Chloride Flush Syringe 10 Ml IV 10 ml BID NORA Administration Sodium Chloride 10 ml 01/29/19 23:15 Sodium Chloride Flush Syringe 10 Ml IV PRN PRN LINE FLUSH Tamsulosin HCl 0.4 mg 01/30/19 10:00 02/02/19 09:26 Flomax PO 0.4 mg QDAY NORA Administration Zinc Sulfate 220 mg 01/30/19 10:00 02/02/19 09:27 Zinc Sulfate PO 220 mg QDAY NORA Administration Nutrition/Malnutrition Assess - Dietary Evaluation Nutrition/Malnutrition Findings: Nutrition Notes Start: 01/30/19 11: 40 Freq: Status: Active Protocol: Document 01/30/19 11:40 RS (Rec: 01/30/19 13:34 RS [id number]) Co-Sign 01/30/19 11:40 RM Nutrition Notes Need for Assessment generated from: MD Order Initial or Follow up Assessment Current Diagnosis Acute Kidney Injury,CKD(stage I-IV),COPD,Coronary Artery Disease,Diabetes,Sepsis, Hypertension,Heart Failure, Stroke Other Pertinent Diagnosis Multiple wounds, Dementia, seizures, PEG, on HD Current Diet Dietary Supplements Labs/Tests Na: 146 K: 6.1 Pertinent Medications Reviewed Height 6 ft Weight 95.25 kg [place] Body Weight (kg) 80.90 BMI 28.5 Weight Status Overweight Subjective/Other Information MD consult for TF. Pt observed for MST screen. Pt could not be physically evaluated for malnutrition d/t him hunched over sleeping to the side, but edema was observed in UE. Observed breakfast tray, w/ 0% consumed. Burn Absent Trauma Absent GI Symptoms None Minimum of two criteria No #1 Nutrition Diagnosis Inadequate oral intake Etiology Hx of stroke, Dementia As Evidenced by Signs and Symptoms pt requiring EN to meet nutrional needs Is patient on ventilator? No Is Patient Ambulatory and/or Out of Bed No REE-([facility]-confined to bed) 5657.084 Calculation Used for Recommendations [facility] Additional Notes Protien needs (1.2-1.5g/kg): 114-143g/day Fluid needs: 1.0-1.5L/day Nutrition Intervention Change Diet Order: Start TF Nutrition Support: Nepro at 50ml/hr. Water flush 200mL q4hr until hypernatremia resolves Water flush 100mL q4hrs after hypernatremia resolves Kcal 2,160 Protein (gm) 97 Fluid (mL) 872 Add Supplement/Snack (indicate name/kcal Mario BID /protein ) Provides kCal: 190 Provides Protein (gm) 5 Goal #1 Meet at least 75% of kcal/pro needs via TF Goal #2 TF tolerance Anticipated Discharge Needs: TF Follow-Up By: 02/03/19 Additional Comments F/U for TF tolerance, renal labs, HD status
--- NOTE | 2019-02-02 11:22 | Progress Note ---
Subjective Interval history: Patient was seen today for follow-up of multiple renal related issues resting comfortably in bed in no acute distress Creatinine is worsening Interdisciplinary notes that also reviewed Events of 24 hours vitals labs intake output medications were reviewed Past medical history: Reviewed Family history: Reviewed Social history: Reviewed Allergies: Reviewed Physical examination: Vitals: Reviewed HEENT: No pallor or icterus oral mucosa moist Neck: Supple no JVD no thyromegaly Chest: Bilateral clear to auscultation anteriorly Heart: Regular rate and rhythm S1-S2 heard no S3-S4 Abdomen: Soft nontender no voluntary guarding rigidity rebound Extremity: Dry skin less than 1+ peripheral edema Psychiatric: No evidence of agitation and aggression noted Dermatology: No petechial rashes Labs and x-rays: Reviewed from today Assessment and plan Acute on chronic renal failure patient's creatinine is currently 3.3 his BUN is 76 potassium is 3.8 Patient is not a suitable candidate for long-term dialysis therapy We need to discuss with family about the plan of care Overall his health status is very poor and there are multiple comorbidities. Patient required one hemodialysis treatment due to hyperkalemia that did not respond to conservative care ? Should the patient be considered for hospice I have not heard anything from the family member, even though I have left him with my contact information We'll continue to follow and make recommendation for renal standpoint Objective - Vital Signs Vital signs: Vital Signs - 12hr 02/02/19 02/02/19 02/02/19 00:00 00:29 04:49 Temperature 98.3 F 99.1 F Pulse Rate 74 75 74 Pulse Rate [ Throughout] Respiratory 22 20 Rate Respiratory Rate [ Throughout] Blood Pressure 136/66 144/67 O2 Sat by Pulse 95 98 Oximetry 02/02/19 02/02/19 02/02/19 07:35 08:17 09:26 Temperature 98.0 F Pulse Rate 73 70 73 Pulse Rate [ Throughout] Respiratory 18 Rate Respiratory Rate [ Throughout] Blood Pressure 144/54 144/54 O2 Sat by Pulse 97 Oximetry 02/02/19 10:03 Temperature Pulse Rate Pulse Rate [ 98 H Throughout] Respiratory Rate Respiratory 28 H Rate [ Throughout] Blood Pressure O2 Sat by Pulse 96 Oximetry - Lab 02/02/19 05:10 02/02/19 05:10 Most recent lab results Calcium 8.4 mg/dL (8.4-10.2) 02/02/19 05:10 Medications & Allergies - Medications Allergies/Adverse Reactions: Allergies lisinopril Allergy (Verified 10/01/18 15:17) Unknown tramadol Allergy (Verified 07/29/18 18:39) Unknown Home Medications: Home Medications Medication Instructions Recorded Confirmed Last Taken Type Multivit-Min/Iron Fum/Folic AC 1 each PO DAILY 03/24/18 02/01/19 1 Day Ago History [Eszil-Fnjbjxf-Luqdibfw Tablet] ~01/31/19 Acetaminophen 650 mg NGTUBE Q6H PRN 07/30/18 02/01/19 1 Day Ago History ~01/31/19 Ipratropium/Albuterol Sulfate 1 ampul IH BID 07/30/18 02/01/19 1 Day Ago History [DUONEB *Not for PRN Use*] ~01/31/19 Tamsulosin [Flomax] 0.4 mg PO QDAY 07/30/18 02/01/19 1 Day Ago History ~01/31/19 Vit C/Ascorbate Calcium,Sodium 500 mg NGTUBE BID 07/30/18 02/01/19 1 Day Ago History [Vitamin C 500 mg/15 ml Liquid] ~01/31/19 Zinc Sulfate 220 mg NGTUBE QDAY 07/30/18 02/01/19 1 Day Ago History ~01/31/19 levETIRAcetam [Keppra INJ] 500 mg PO Q12H 07/30/18 02/01/19 1 Day Ago History ~01/31/19 Phosphorus #1 [K-Phos Neutral] 250 mg PO QID #30 tablet 08/23/18 02/01/19 1 Day Ago Rx ~01/31/19 AtorvaSTATin [Lipitor] 40 mg NGTUBE QHS #30 tablet 10/21/18 02/01/19 1 Day Ago Rx ~01/31/19 Insulin Aspart [NovoLOG 100 0 unit SQ AC 11/01/18 02/01/19 1 Day Ago History UNITS/ML VIAL] ~01/31/19 ALBUTEROL NEB's [Proventil 0.083% 2.5 mg IH Q3HRT PRN nebu 12/27/18 02/01/19 1 Day Ago Rx NEBS] ~01/31/19 Cefuroxime Axetil [Ceftin] 500 mg PO Q12H #140 ml 01/02/19 02/01/19 1 Day Ago Rx ~01/31/19 Carvedilol [Coreg] 12.5 mg PO BID #60 tablet 01/23/19 02/01/19 1 Day Ago Rx ~01/31/19 Active Medications: Generic Name Dose Route Start Last Admin Trade Name Freq PRN Reason Stop Dose Admin Acetaminophen 650 mg 01/29/19 23:15 Tylenol PO Q4H PRN Pain MILD(1-3)/Fever >100.5/PRICE Albuterol 2.5 mg 01/29/19 23:19 01/31/19 16:25 Proventil IH 2.5 mg Q3HRT PRN Administration Shortness Of Breath Albuterol/Ipratropium 1 ampul 01/30/19 08:00 02/02/19 10:05 Duoneb *Not For Prn Use* IH 1 ampul BIDRT NORA Administration Lipase/Protease/Amylase 1 each 02/01/19 08:45 Pancreaze 10,500 Unit FEEDTUBE PRN PRN For Clogged Feeding Tube Ascorbic Acid 500 mg 01/30/19 10:00 02/02/19 09:25 Vitamin C FEEDTUBE 500 mg BID NORA Administration Atorvastatin Calcium 40 mg 01/30/19 22:00 02/01/19 22:37 Lipitor FEEDTUBE 40 mg QHS NORA Administration Carvedilol 12.5 mg 01/30/19 10:00 02/02/19 09:26 Coreg PO 12.5 mg BID NORA Administration Sodium Chloride 1,000 mls @ 50 mls/hr 01/29/19 23:00 Nacl 0.45% 1000 Ml IV DIRECT NORA Sodium Chloride 100 mls @ 999 mls/hr 01/30/19 14:02 Nacl 0.9% IV SANDEEP PRN Hypotension Sodium Chloride 500 mls @ 0 mls/hr 02/02/19 12:00 Nacl 0.9% 500 Ml IV 02/02/19 12:01 ONCE ONE As Directed Levetiracetam 500 mg 01/29/19 23:30 02/01/19 22:37 Keppra FEEDTUBE 500 mg Q12H NORA Administration Multivitamins 5 ml 01/30/19 10:00 02/02/19 09:28 Centrum Liq PO 5 ml DAILY NORA Administration Ondansetron HCl 4 mg 01/29/19 23:15 Zofran IV Q4H PRN Nausea And Vomiting Simple Syrup 15 ml 02/01/19 08:45 Simple Syrup FEEDTUBE PRN PRN Hypoglycemia Simple Syrup 30 ml 02/01/19 08:45 Simple Syrup FEEDTUBE PRN PRN Hypoglycemia Sodium Bicarbonate 325 mg 01/30/19 13:35 Sodium Bicarbonate FEEDTUBE PRN PRN For Clogged Feeding Tube Sodium Bicarbonate 325 mg 02/01/19 08:45 Sodium Bicarbonate FEEDTUBE PRN PRN For Clogged Feeding Tube Sodium Chloride 10 ml 01/30/19 10:00 02/02/19 09:27 Sodium Chloride Flush Syringe 10 Ml IV 10 ml BID NORA Administration Sodium Chloride 10 ml 01/29/19 23:15 Sodium Chloride Flush Syringe 10 Ml IV PRN PRN LINE FLUSH Tamsulosin HCl 0.4 mg 01/30/19 10:00 02/02/19 09:26 Flomax PO 0.4 mg QDAY NORA Administration Zinc Sulfate 220 mg 01/30/19 10:00 02/02/19 09:27 Zinc Sulfate PO 220 mg QDAY NORA Administration
[2019-02-02] MEDS ORDERED: NACL 0.9% 500 ML 500 ML IV ONE (12:00)
[2019-02-02] MEDS: KEPPRA FEEDTUBE SCH ×3 (12:59→23:25)
--- NOTE | 2019-02-02 14:24 | Progress Note ---
Assessment and Plan Cultures: 01/29 BCX - different CoNS A/P: 68 yo M PMhx multiple chronic sacral and other wounds, recurrent UTI, CVA, BPH, CHF, contractures, DM2, COPD, dementia admitted for emergent initiation of dialysis. 1. Acute sepsis - present on admission with leukocytosis and tachycardia. Improved. 2. CoNS bacteremia - multiple blood cultures positive but with different morphologies, hence highly likely a contaminant. Off vancomycin. 3. Positive urinalysis - Urine culture with Ashley albicans. Not a urinary pathogen. Stopped cefepime. Candiduria does not need treatment. 4. Multiple chronic wounds - encourage ongoing wound care. Minimal utility in treating, please do not culture unless they appear acutely infected with purulence. 5. Acute renal failure required emergent dialysis: Nephrology following. will dose antibiotics accordingly. 6. DM2 7. COPD 8. Dementia Recs: - continue off antibiotics - continue wound care - extremely poor prognosis. He remains at high risk of recurrent infections with MDROs and his wounds are non curable Marcos Dillon MD, FACP [facility] C: [phone] O: [phone] F: [phone] Subjective Date of service: 02/02/19 Interval history: Non-verbal. No fever. Poor historian. Lying in bed contracted Objective - Exam Narrative Exam: Constitutional: awake, non verbal, does not follow commands. contracted in bed Head, Ears, Nose: Normocephalic, atraumatic. External ears, nose normal Eyes: Conjunctivae/corneas clear. No icterus. No ptosis. Neck: Supple, no meningeal signs Oral: no thrush Cardiovascular: S1, S2 normal. Respiratory: occasional ronchi GI: Soft, non-tender; bowel sounds normal. No peritoneal signs. Chaudhary + Musculoskeletal: No pedal edema, no cyanosis. Contractures + Skin: Numerous bilateral LE wounds and sacral wound Hem/Lymphatic: No palpable cervical or supraclavicular nodes. No lymphangitis Neurological: Awake, doesn't follow commands - Constitutional Vitals: Vital Signs Temp Pulse Resp BP Pulse Ox 98.2 F 78 18 129/54 93 02/02/19 12:28 02/02/19 13:42 02/02/19 13:42 02/02/19 13:42 02/02/19 13:42 Temperature -Last 24 Hours Temperature 98.2 F Temperature 98.0 F Temperature 99.1 F Temperature 98.3 F Temperature 98.9 F Temperature 98.6 F - Labs CBC & Chem 7: 02/02/19 05:10 02/02/19 05:10 Labs: Abnormal lab results 01/29/19 02/01/19 02/02/19 Range/Units 20:50 15:42 00:39 RBC (3.65-5.03) M/mm3 Hgb (11.8-15.2) gm/dl Hct (35.5-45.6) % RDW (13.2-15.2) % BUN (9-20) mg/dL Creatinine (0.8-1.5) mg/dL Glucose (75-100) mg/dL POC Glucose 138 H 110 H (70-105) Crossmatch See Detail 02/02/19 02/02/19 02/02/19 Range/Units 05:10 05:10 07:08 RBC 2.33 L (3.65-5.03) M/mm3 Hgb 6.5 L (11.8-15.2) gm/dl Hct 20.1 L (35.5-45.6) % RDW 18.0 H (13.2-15.2) % BUN 76 H (9-20) mg/dL Creatinine 3.3 H (0.8-1.5) mg/dL Glucose 110 H (75-100) mg/dL POC Glucose 111 H (70-105) Crossmatch 02/02/19 02/02/19 Range/Units 11:22 12:30 RBC (3.65-5.03) M/mm3 Hgb (11.8-15.2) gm/dl Hct (35.5-45.6) % RDW (13.2-15.2) % BUN (9-20) mg/dL Creatinine (0.8-1.5) mg/dL Glucose (75-100) mg/dL POC Glucose 124 H (70-105) Crossmatch See Detail
[2019-02-02] MEDS: PANCREAZE DR 10,500 UNIT FEEDTUBE PRN (21:23)
[2019-02-02] MEDS: SODIUM BICARBONATE FEEDTUBE PRN (21:23)
[2019-02-03] MEDS: DUONEB *Not for PRN Use IH SCH ×2 (09:42→19:56)
--- NOTE | 2019-02-03 09:50 | Progress Note ---
Assessment and Plan Impression * Oliguric acute kidney injury secondary to ATN * Hyperkalemia - resolved * Metabolic acidosis * Anemia * Dementia * History of seizure disorder * History of BPH Recommendations * No acute indication for hemodialysis today * Monitor SCr and UOP * Chaudhary catheter remains in place * Strict I/O * Avoid nephrotoxins * Renal prognosis is guarded. Recommend hospice care. Subjective Date of service: 02/03/19 Interval history: No acute events overnight Objective - Vital Signs Vital signs: Vital Signs - 12hr 02/02/19 02/03/19 02/03/19 22:13 00:15 04:56 Temperature 97.8 F 98.4 F Pulse Rate 70 70 75 Respiratory 18 18 Rate Blood Pressure 131/53 141/57 O2 Sat by Pulse 98 98 Oximetry 02/03/19 02/03/19 02/03/19 08:27 09:05 09:42 Temperature 98.2 F Pulse Rate 68 61 Respiratory 18 Rate Blood Pressure 164/74 O2 Sat by Pulse 97 99 Oximetry - General Appearance General appearance: frail EENT: ATNC Respiratory: Present: Decreased Breath Sounds Cardiology: regular, S1S2 Gastrointestinal: no tenderness, no distended Integumentary: warm and dry Neurologic: other (nods head to questions) Musculoskeletal: other (no edema) - Lab 02/02/19 05:10 02/02/19 05:10 Most recent lab results Calcium 8.4 mg/dL (8.4-10.2) 02/02/19 05:10 Medications & Allergies - Medications Allergies/Adverse Reactions: Allergies lisinopril Allergy (Verified 10/01/18 15:17) Unknown tramadol Allergy (Verified 07/29/18 18:39) Unknown Home Medications: Home Medications Medication Instructions Recorded Confirmed Last Taken Type Multivit-Min/Iron Fum/Folic AC 1 each PO DAILY 03/24/18 02/01/19 1 Day Ago History [Pgilo-Obllecb-Qljrbncv Tablet] ~01/31/19 Acetaminophen 650 mg NGTUBE Q6H PRN 07/30/18 02/01/19 1 Day Ago History ~01/31/19 Ipratropium/Albuterol Sulfate 1 ampul IH BID 07/30/18 02/01/19 1 Day Ago History [DUONEB *Not for PRN Use*] ~01/31/19 Tamsulosin [Flomax] 0.4 mg PO QDAY 07/30/18 02/01/19 1 Day Ago History ~01/31/19 Vit C/Ascorbate Calcium,Sodium 500 mg NGTUBE BID 07/30/18 02/01/19 1 Day Ago History [Vitamin C 500 mg/15 ml Liquid] ~01/31/19 Zinc Sulfate 220 mg NGTUBE QDAY 07/30/18 02/01/19 1 Day Ago History ~01/31/19 levETIRAcetam [Keppra INJ] 500 mg PO Q12H 07/30/18 02/01/19 1 Day Ago History ~01/31/19 Phosphorus #1 [K-Phos Neutral] 250 mg PO QID #30 tablet 08/23/18 02/01/19 1 Day Ago Rx ~01/31/19 AtorvaSTATin [Lipitor] 40 mg NGTUBE QHS #30 tablet 10/21/18 02/01/19 1 Day Ago Rx ~01/31/19 Insulin Aspart [NovoLOG 100 0 unit SQ AC 11/01/18 02/01/19 1 Day Ago History UNITS/ML VIAL] ~01/31/19 ALBUTEROL NEB's [Proventil 0.083% 2.5 mg IH Q3HRT PRN nebu 12/27/18 02/01/19 1 Day Ago Rx NEBS] ~01/31/19 Cefuroxime Axetil [Ceftin] 500 mg PO Q12H #140 ml 01/02/19 02/01/19 1 Day Ago Rx ~01/31/19 Carvedilol [Coreg] 12.5 mg PO BID #60 tablet 01/23/19 02/01/19 1 Day Ago Rx ~01/31/19 Active Medications: Generic Name Dose Route Start Last Admin Trade Name Freq PRN Reason Stop Dose Admin Acetaminophen 650 mg 01/29/19 23:15 Tylenol PO Q4H PRN Pain MILD(1-3)/Fever >100.5/PRICE Albuterol 2.5 mg 01/29/19 23:19 01/31/19 16:25 Proventil IH 2.5 mg Q3HRT PRN Administration Shortness Of Breath Albuterol/Ipratropium 1 ampul 01/30/19 08:00 02/03/19 09:42 Duoneb *Not For Prn Use* IH 1 ampul BIDRT NORA Administration Lipase/Protease/Amylase 1 each 02/01/19 08:45 02/02/19 21:23 Pancrenomi Moore 10,500 Unit FEEDTUBE 1 each PRN PRN Administration For Clogged Feeding Tube Ascorbic Acid 500 mg 01/30/19 10:00 02/02/19 21:23 Vitamin C FEEDTUBE 500 mg BID NORA Administration Atorvastatin Calcium 40 mg 01/30/19 22:00 02/02/19 21:23 Lipitor FEEDTUBE 40 mg QHS NORA Administration Carvedilol 12.5 mg 01/30/19 10:00 02/02/19 21:23 Coreg PO 12.5 mg BID NORA Administration Sodium Chloride 1,000 mls @ 50 mls/hr 01/29/19 23:00 Nacl 0.45% 1000 Ml IV DIRECT NORA Sodium Chloride 100 mls @ 999 mls/hr 01/30/19 14:02 Nacl 0.9% IV SANDEEP PRN Hypotension Levetiracetam 500 mg 01/29/19 23:30 02/02/19 23:25 Keppra FEEDTUBE Not Given Q12H NORA Multivitamins 5 ml 01/30/19 10:00 02/02/19 09:28 Centrum Liq PO 5 ml DAILY NORA Administration Ondansetron HCl 4 mg 01/29/19 23:15 Zofran IV Q4H PRN Nausea And Vomiting Simple Syrup 15 ml 02/01/19 08:45 02/02/19 21:23 Simple Syrup FEEDTUBE 15 ml PRN PRN Administration Hypoglycemia Simple Syrup 30 ml 02/01/19 08:45 Simple Syrup FEEDTUBE PRN PRN Hypoglycemia Sodium Bicarbonate 325 mg 01/30/19 13:35 02/02/19 21:23 Sodium Bicarbonate FEEDTUBE 325 mg PRN PRN Administration For Clogged Feeding Tube Sodium Bicarbonate 325 mg 02/01/19 08:45 Sodium Bicarbonate FEEDTUBE PRN PRN For Clogged Feeding Tube Sodium Chloride 10 ml 01/30/19 10:00 02/02/19 21:32 Sodium Chloride Flush Syringe 10 Ml IV 10 ml BID NORA Administration Sodium Chloride 10 ml 01/29/19 23:15 Sodium Chloride Flush Syringe 10 Ml IV PRN PRN LINE FLUSH Tamsulosin HCl 0.4 mg 01/30/19 10:00 02/02/19 09:26 Flomax PO 0.4 mg QDAY NORA Administration Zinc Sulfate 220 mg 01/30/19 10:00 02/02/19 09:27 Zinc Sulfate PO 220 mg QDAY NORA Administration
[2019-02-03] MEDS: FLOMAX PO SCH (10:03)
[2019-02-03] MEDS: VITAMIN C FEEDTUBE SCH ×2 (10:03→22:21)
[2019-02-03] MEDS: COREG PO SCH ×2 (10:03→22:21)
[2019-02-03] MEDS: Centrum Liq PO SCH (10:04)
[2019-02-03] MEDS: SODIUM CHLORIDE FLUSH SYRINGE 10 ML IV SCH ×2 (10:04→22:22)
[2019-02-03] MEDS: ZINC SULFATE PO SCH (10:04)
--- NOTE | 2019-02-03 10:33 | Progress Note ---
Assessment and Plan Assessment and plan: Patient is 68-year-old male who is a resident of [facility] with history of hypertension, CVA, BPH, CHF, contracture upper and lower extremities, sacral pressure ulcer, bilateral lower extremity pressure ulcer, CAD, DM, seizure, COPD, dementia who presents to [facility] ED for evaluation of abnormal labs. Patient admitted for emergent initiation of dialysis. * pCXR IMPRESSION: 1. Linear radiopaque structure projects over the mediastinum not certain of the nature of this object. There is airspace opacity in the right midlung zone. MÓNICA, new ESRD with initiation of HD on 01/30/19 -Imposed CKD 5 -vasomotor nephropathy, poa -Cr on admission 3.3 ( up from 2.6 on 01/23/19) -Baseline around 1.0 -Avoid nephrotoxic agents -Gentle hydration with IVF -Renal dose all meds -Nephrology consulted Leukocytosis with sepsis poa -likely secondary to RML pneumonia -WBC 13.1 -TMAX 100.5 -Cultures pending -Off IV abx -ID is following Chronic anemia -Hbg on admission 6.8 -No s/s of active bleeding -Received 2u PRBC -Continue to monitor hgb -Transfuse prn Hyperkalemia -Potassium on admission 6.8 -Received hyperkalemic cocktail in ED -Repeat labs pending -Nephrology following Hx BPH -Chaudhary catheter -Continue Flomax Hx Seizure disorder -continue Keppra Hypertension -Continue to monitor BP -Continue Coreg Hx of Pressure Ulcers -Sacral and BLE -Wound care consulted DM 2 -POC BG monitoring -SSI coverage COPD -Albuterol prn Chronic debility -Contracture of extremities x4 -PT/OT eval pending Severe malnutrition -Albumin 1.7 -Pt has PEG Tube -Dietitian consulted for mgmt of TF Hx Dementia Hx CHF Hx CVA DVT PPX -SCD's d/w Angela, on Sunday Disposition: continue inpatient care, await outpatient hemodialysis setup History Interval history: Patient was seen and examined. Follow-up on current diagnosis of Sepsis. No overnight events reported to me. Patient denies any chest pain, shortness breath, nausea/vomiting or severe headaches. Imaging, nursing note, chart, labs and old chart reviewed. Discussed with patient. Hospitalist Physical - Physical exam Narrative exam: Gen: chronically disable, mostly nonverbal HEENT: NCAT, EOMI, PERRL, OP Clear Neck: supple, no adenopathy, no thyromegaly, no JVD CVS/Heart: RRR, normal S1S2, pulses present bilaterally Chest/Lungs: CTA B, Symmetrical chest expansion, good air entry bilaterally GI/Abdomen: soft, NTND, good bowel sounds, no guarding or rebound /Bladder: no suprapubic tenderness, no CVA or paraspinal tenderness Extermity/Skin: multiple pressure ulcers variable stages, 3-4 MSK: contracted x 4, neck flex to chest, in a chronic position Neuro: CN 2-12 grossly intact, no new focal deficits Psych: calm - Constitutional Vitals: Temp Pulse Resp BP Pulse Ox 98.2 F 68 16 164/74 99 02/03/19 08:27 02/03/19 10:03 02/03/19 09:54 02/03/19 10:03 02/03/19 09:42 Results - Labs CBC & Chem 7: 02/02/19 05:10 02/02/19 05:10 Labs: Laboratory Last Values WBC 8.7 K/mm3 (4.5-11.0) 02/02/19 05:10 RBC 2.33 M/mm3 (3.65-5.03) L 02/02/19 05:10 Hgb 6.5 gm/dl (11.8-15.2) L 02/02/19 05:10 Hct 20.1 % (35.5-45.6) L 02/02/19 05:10 MCV 86 fl (84-94) 02/02/19 05:10 MCH 28 pg (28-32) 02/02/19 05:10 MCHC 32 % (32-34) 02/02/19 05:10 RDW 18.0 % (13.2-15.2) H 02/02/19 05:10 Plt Count 296 K/mm3 (140-440) 02/02/19 05:10 Lymph % (Auto) 8.7 % (13.4-35.0) L 01/30/19 08:54 [place] % (Auto) 7.5 % (0.0-7.3) H 01/30/19 08:54 Eos % (Auto) 1.3 % (0.0-4.3) 01/30/19 08:54 Baso % (Auto) 1.0 % (0.0-1.8) 01/30/19 08:54 Lymph # 1.1 K/mm3 (1.2-5.4) L 01/30/19 08:54 [place] # 0.9 K/mm3 (0.0-0.8) H 01/30/19 08:54 Eos # 0.2 K/mm3 (0.0-0.4) 01/30/19 08:54 Baso # 0.1 K/mm3 (0.0-0.1) 01/30/19 08:54 Seg Neutrophils % 81.5 % (40.0-70.0) H 01/30/19 08:54 Seg Neutrophils # 10.3 K/mm3 (1.8-7.7) H 01/30/19 08:54 Sodium 145 mmol/L (137-145) 02/02/19 05:10 Potassium 3.8 mmol/L (3.6-5.0) 02/02/19 05:10 Chloride 101.1 mmol/L (98-107) 02/02/19 05:10 Carbon Dioxide 29 mmol/L (22-30) 02/02/19 05:10 19 mmol/L 02/02/19 05:10 BUN 76 mg/dL (9-20) H 02/02/19 05:10 3.3 mg/dL (0.8-1.5) H 02/02/19 05:10 Estimated GFR 23 ml/min 02/02/19 05:10 23 % 02/02/19 05:10 Glucose 110 mg/dL (75-100) H 02/02/19 05:10 POC Glucose 116 (70-105) H 02/03/19 06:04 355 Mosm/kg 01/30/19 08:54 Lactic Acid 0.80 mmol/L (0.7-2.0) 01/29/19 21:00 7.0 mg/dL (3.5-7.6) 01/30/19 08:54 Calcium 8.4 mg/dL (8.4-10.2) 02/02/19 05:10 < 0.20 mg/dL (0.1-1.2) 01/29/19 19:30 AST 25 units/L (5-40) 01/29/19 19:30 ALT 13 units/L (7-56) 01/29/19 19:30 115 units/L (35-129) 01/29/19 19:30 62 units/L (55-170) 01/30/19 08:54 7.0 g/dL (6.3-8.2) 01/29/19 19:30 1.7 g/dL (3.9-5) L 01/29/19 19:30 0.3 % 01/29/19 19:30 Prostate Specific Ag 0.03 ng/mL (0.00-4.00) 01/30/19 08:54 Yellow (Yellow) 01/30/19 03:30 Clear (Clear) 01/30/19 03:30 9.0 (5.0-7.0) H 01/30/19 03:30 Ur Specific [place] 1.013 (1.003-1.030) 01/30/19 03:30 100 mg/dl mg/dL (Negative) 01/30/19 03:30 Neg mg/dL (Negative) 01/30/19 03:30 Neg mg/dL (Negative) 01/30/19 03:30 Neg (Negative) 01/30/19 03:30 Neg (Negative) 01/30/19 03:30 Neg (Negative) 01/30/19 03:30 < 2.0 mg/dL (<2.0) 01/30/19 03:30 Ur Leukocyte Esterase Tr (Negative) 01/30/19 03:30 7.0 /HPF (0.0-6.0) H 01/30/19 03:30 5.0 /HPF (0.0-6.0) 01/30/19 03:30 U Epithel Cells (Auto) < 1.0 /HPF (0-13.0) 01/29/19 22:15 1+ /HPF (Negative) 01/30/19 03:30 Few /HPF 01/30/19 03:30 1+ /HPF 01/30/19 03:30 Random Vancomycin 9.3 ug/mL (0-40.0) 02/01/19 05:13 Hepatitis A IgM Ab Non-reactive (NonReactive) 01/30/19 08:54 Hep Bs Antigen Non-reactive (Negative) 01/30/19 08:54 Hep B Core IgM Ab Non-reactive (NonReactive) 01/30/19 08:54 Non-reactive (NonReactive) 01/30/19 08:54 Blood Type O POSITIVE 02/02/19 11:22 Antibody Screen Negative 02/02/19 11:22 Crossmatch See Detail 02/02/19 11:22 Active Medications - Current Medications Current Medications: Generic Name Dose Route Start Last Admin Trade Name Freq PRN Reason Stop Dose Admin Acetaminophen 650 mg 01/29/19 23:15 Tylenol PO Q4H PRN Pain MILD(1-3)/Fever >100.5/PRICE Albuterol 2.5 mg 01/29/19 23:19 01/31/19 16:25 Proventil IH 2.5 mg Q3HRT PRN Administration Shortness Of Breath Albuterol/Ipratropium 1 ampul 01/30/19 08:00 02/03/19 09:42 Duoneb *Not For Prn Use* IH 1 ampul BIDRT NORA Administration Lipase/Protease/Amylase 1 each 02/01/19 08:45 02/02/19 21:23 Pancreaze 10,500 Unit FEEDTUBE 1 each PRN PRN Administration For Clogged Feeding Tube Ascorbic Acid 500 mg 01/30/19 10:00 02/03/19 10:03 Vitamin C FEEDTUBE 500 mg BID NORA Administration Atorvastatin Calcium 40 mg 01/30/19 22:00 02/02/19 21:23 Lipitor FEEDTUBE 40 mg QHS NORA Administration Carvedilol 12.5 mg 01/30/19 10:00 02/03/19 10:03 Coreg PO 12.5 mg BID NORA Administration Sodium Chloride 1,000 mls @ 50 mls/hr 01/29/19 23:00 Nacl 0.45% 1000 Ml IV DIRECT NORA Sodium Chloride 100 mls @ 999 mls/hr 01/30/19 14:02 Nacl 0.9% IV SANDEEP PRN Hypotension Levetiracetam 500 mg 01/29/19 23:30 02/02/19 23:25 Keppra FEEDTUBE Not Given Q12H NORA Multivitamins 5 ml 01/30/19 10:00 02/03/19 10:04 Centrum Liq PO 5 ml DAILY NORA Administration Ondansetron HCl 4 mg 01/29/19 23:15 Zofran IV Q4H PRN Nausea And Vomiting Simple Syrup 15 ml 02/01/19 08:45 02/02/19 21:23 Simple Syrup FEEDTUBE 15 ml PRN PRN Administration Hypoglycemia Simple Syrup 30 ml 02/01/19 08:45 Simple Syrup FEEDTUBE PRN PRN Hypoglycemia Sodium Bicarbonate 325 mg 01/30/19 13:35 02/02/19 21:23 Sodium Bicarbonate FEEDTUBE 325 mg PRN PRN Administration For Clogged Feeding Tube Sodium Bicarbonate 325 mg 02/01/19 08:45 Sodium Bicarbonate FEEDTUBE PRN PRN For Clogged Feeding Tube Sodium Chloride 10 ml 01/30/19 10:00 02/03/19 10:04 Sodium Chloride Flush Syringe 10 Ml IV 10 ml BID NORA Administration Sodium Chloride 10 ml 01/29/19 23:15 Sodium Chloride Flush Syringe 10 Ml IV PRN PRN LINE FLUSH Tamsulosin HCl 0.4 mg 01/30/19 10:00 02/03/19 10:03 Flomax PO 0.4 mg QDAY NORA Administration Zinc Sulfate 220 mg 01/30/19 10:00 02/03/19 10:04 Zinc Sulfate PO 220 mg QDAY NORA Administration Nutrition/Malnutrition Assess - Dietary Evaluation Nutrition/Malnutrition Findings: Nutrition Notes Start: 01/30/19 11:40 Freq: Status: Active Protocol: Document 01/30/19 11:40 RS (Rec: 01/30/19 13:34 RS [id number]) Co-Sign 01/30/19 11:40 RM Nutrition Notes Need for Assessment generated from: MD Order Initial or Follow up Assessment Current Diagnosis Acute Kidney Injury,CKD(stage I-IV),COPD,Coronary Artery Disease,Diabetes,Sepsis, Hypertension,Heart Failure, Stroke Other Pertinent Diagnosis Multiple wounds, Dementia, seizures, PEG, on HD Current Diet Dietary Supplements Labs/Tests Na: 146 K: 6.1 Pertinent Medications Reviewed Height 6 ft Weight 95.25 kg [place] Body Weight (kg) 80.90 BMI 28.5 Weight Status Overweight Subjective/Other Information MD consult for TF. Pt observed for MST screen. Pt could not be physically evaluated for malnutrition d/t him hunched over sleeping to the side, but edema was observed in UE. Observed breakfast tray, w/ 0% consumed. Burn Absent Trauma Absent GI Symptoms None Minimum of two criteria No #1 Nutrition Diagnosis Inadequate oral intake Etiology Hx of stroke, Dementia As Evidenced by Signs and Symptoms pt requiring EN to meet nutrional needs Is patient on ventilator? No Is Patient Ambulatory and/or Out of Bed No REE-([facility]-confined to bed) 5087.084 Calculation Used for Recommendations [facility] Additional Notes Protien needs (1.2-1.5g/kg): 114-143g/day Fluid needs: 1.0-1.5L/day Nutrition Intervention Change Diet Order: Start TF Nutrition Support: Nepro at 50ml/hr. Water flush 200mL q4hr until hypernatremia resolves Water flush 100mL q4hrs after hypernatremia resolves Kcal 2,160 Protein (gm) 97 Fluid (mL) 872 Add Supplement/Snack (indicate name/kcal Mario BID /protein ) Provides kCal: 190 Provides Protein (gm) 5 Goal #1 Meet at least 75% of kcal/pro needs via TF Goal #2 TF tolerance Anticipated Discharge Needs: TF Follow-Up By: 02/03/19 Additional Comments F/U for TF tolerance, renal labs, HD status
[2019-02-03] MEDS: KEPPRA FEEDTUBE SCH ×2 (10:36→22:43)
--- NOTE | 2019-02-03 14:32 | Progress Note ---
Assessment and Plan Cultures: 01/29 BCX - different CoNS A/P: 68 yo M PMhx multiple chronic sacral and other wounds, recurrent UTI, CVA, BPH, CHF, contractures, DM2, COPD, dementia admitted for emergent initiation of dialysis. 1. Acute sepsis - present on admission with leukocytosis and tachycardia. Improved. 2. CoNS bacteremia - multiple blood cultures positive but with different morphologies, hence highly likely a contaminant. Off vancomycin. 3. Positive urinalysis - Urine culture with Ashley albicans. Not a urinary pathogen. Stopped cefepime. Candiduria does not need treatment. 4. Multiple chronic wounds - encourage ongoing wound care. Minimal utility in treating, please do not culture unless they appear acutely infected with purulence. 5. Acute renal failure required emergent dialysis: Nephrology following. will dose antibiotics accordingly. 6. DM2 7. COPD 8. Dementia Recs: - remains stable off antibiotics - continue wound care - extremely poor prognosis. He remains at high risk of recurrent infections with MDROs and his wounds are non curable Will sign off. Please call with questions. Marcos Dillon MD, FACP [facility] ([facility] C: [phone] O: [phone] F: [phone] Subjective Date of service: 02/03/19 Interval history: Non-verbal. No fever. Poor historian. Lying in bed contracted. No distress Objective - Exam Narrative Exam: Constitutional: awake, non verbal, does not follow commands. contracted in bed Head, Ears, Nose: Normocephalic, atraumatic. External ears, nose normal Eyes: Conjunctivae/corneas clear. No icterus. No ptosis. Neck: Supple, no meningeal signs. Left IJ HD cath + Oral: no thrush Cardiovascular: S1, S2 normal. Respiratory: occasional ronchi GI: Soft, non-tender; bowel sounds normal. G tube +. No peritoneal signs. Chaudhary + Musculoskeletal: No pedal edema, no cyanosis. Contractures + Skin: Numerous bilateral LE wounds and sacral wound Hem/Lymphatic: No palpable cervical or supraclavicular nodes. No lymphangitis Neurological: Awake, doesn't follow commands - Constitutional Vitals: Vital Signs Temp Pulse Resp BP Pulse Ox 98.6 F 70 20 152/69 96 02/03/19 12:12 02/03/19 12:12 02/03/19 12:31 02/03/19 12:12 02/03/19 12:12 Temperature -Last 24 Hours Temperature 98.6 F Temperature 98.2 F Temperature 98.4 F Temperature 97.8 F Temperature 97.9 F Temperature 98.9 F - Labs CBC & Chem 7: 02/02/19 05:10 02/02/19 05:10 Labs: Abnormal lab results 02/02/19 02/02/19 02/03/19 Range/Units 11:22 17:21 00:22 POC Glucose 124 H 120 H (70-105) Crossmatch See Detail 02/03/19 Range/Units 06:04 POC Glucose 116 H (70-105) Crossmatch
[2019-02-03] MEDS: PANCREAZE DR 10,500 UNIT FEEDTUBE PRN (22:21)
[2019-02-03] MEDS: SODIUM BICARBONATE FEEDTUBE PRN (22:21)
[2019-02-04] MEDS: DUONEB *Not for PRN Use IH SCH ×2 (08:31→20:52)
[2019-02-04] MEDS: FLOMAX PO SCH (09:40)
[2019-02-04] MEDS: VITAMIN C FEEDTUBE SCH ×2 (09:40→22:18)
[2019-02-04] MEDS: COREG PO SCH ×2 (09:40→22:18)
[2019-02-04] MEDS: Centrum Liq PO SCH (09:40)
[2019-02-04] MEDS: ZINC SULFATE PO SCH (09:40)
[2019-02-04 10:00] LABS: Basophils % (Auto) 0.5 % (0.0-1.8); Eosinophils # (Auto) 0.5 K/mm3 (0.0-0.4); Eosinophils % (Auto) 5.2 % (0.0-4.3); Hematocrit 21.7 % (35.5-45.6); Hemoglobin 7.2 gm/dl (11.8-15.2); Lymphocytes # (Auto) 0.9 K/mm3 (1.2-5.4); Lymphocytes % (Auto) 10.8 % (13.4-35.0); Mean Corpuscular HGB Conc 33 % (32-34); Mean Corpuscular Volume 88 fl (84-94); Monocytes # (Auto) 0.7 K/mm3 (0.0-0.8); Monocytes % (Auto) 8.3 % (0.0-7.3); Platelet Count 349 K/mm3 (140-440); Red Blood Count 2.48 M/mm3 (3.65-5.03); Red Cell Distribution Width 17.1 % (13.2-15.2)
[2019-02-04] MEDS: SODIUM CHLORIDE FLUSH SYRINGE 10 ML IV SCH ×2 (10:00→22:18)
[2019-02-04 10:19] LABS: Calcium 8.7 mg/dL (8.4-10.2)
--- NOTE | 2019-02-04 11:10 | Progress Note ---
Assessment and Plan Impression * Oliguric acute kidney injury secondary to ATN * Hyperkalemia - resolved * Metabolic acidosis * Anemia * Dementia * History of seizure disorder * History of BPH Recommendations * No acute indication for hemodialysis today * Continue to monitor SCr trend and UOP * Chaudhary catheter remains in place * Strict I/O * Avoid nephrotoxins * Renal prognosis is guarded. 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 Subjective Date of service: 02/04/19 Interval history: No acute events overnight Objective - Vital Signs Vital signs: Vital Signs - 12hr 02/03/19 02/04/19 02/04/19 23:21 01:38 03:35 Temperature 98.9 F Pulse Rate 82 82 76 Pulse Rate [ 80 Throughout] Respiratory 20 20 Rate Respiratory 18 Rate [ Throughout] Blood Pressure 152/61 151/62 O2 Sat by Pulse 92 94 Oximetry 02/04/19 02/04/19 02/04/19 04:26 10:00 10:11 Temperature 97.4 F L Pulse Rate Pulse Rate [ Throughout] Respiratory 22 Rate Respiratory Rate [ Throughout] Blood Pressure O2 Sat by Pulse 96 Oximetry - General Appearance General appearance: frail EENT: ATNC Respiratory: Present: Decreased Breath Sounds Cardiology: regular, S1S2 Gastrointestinal: normal, no tenderness, no distended Integumentary: warm and dry Musculoskeletal: other (leg contractures) Psychiatric: cooperative - Lab 02/04/19 09:36 02/04/19 09:36 Most recent lab results Calcium 8.7 mg/dL (8.4-10.2) 02/04/19 09:36 Magnesium 2.40 mg/dL (1.7-2.3) H 02/04/19 09:36 Medications & Allergies - Medications Allergies/Adverse Reactions: Allergies lisinopril Allergy (Verified 10/01/18 15:17) Unknown tramadol Allergy (Verified 07/29/18 18:39) Unknown Home Medications: Home Medications Medication Instructions Recorded Confirmed Last Taken Type Multivit-Min/Iron Fum/Folic AC 1 each PO DAILY 03/24/18 02/01/19 1 Day Ago History [Zcyon-Ohstytj-Lnivtmdy Tablet] ~01/31/19 Acetaminophen 650 mg NGTUBE Q6H PRN 07/30/18 02/01/19 1 Day Ago History ~01/31/19 Ipratropium/Albuterol Sulfate 1 ampul IH BID 07/30/18 02/01/19 1 Day Ago History [DUONEB *Not for PRN Use*] ~01/31/19 Tamsulosin [Flomax] 0.4 mg PO QDAY 07/30/18 02/01/19 1 Day Ago History ~01/31/19 Vit C/Ascorbate Calcium,Sodium 500 mg NGTUBE BID 07/30/18 02/01/19 1 Day Ago History [Vitamin C 500 mg/15 ml Liquid] ~01/31/19 Zinc Sulfate 220 mg NGTUBE QDAY 07/30/18 02/01/19 1 Day Ago History ~01/31/19 levETIRAcetam [Keppra INJ] 500 mg PO Q12H 07/30/18 02/01/19 1 Day Ago History ~01/31/19 Phosphorus #1 [K-Phos Neutral] 250 mg PO QID #30 tablet 08/23/18 02/01/19 1 Day Ago Rx ~01/31/19 AtorvaSTATin [Lipitor] 40 mg NGTUBE QHS #30 tablet 10/21/18 02/01/19 1 Day Ago Rx ~01/31/19 Insulin Aspart [NovoLOG 100 0 unit SQ AC 11/01/18 02/01/19 1 Day Ago History UNITS/ML VIAL] ~01/31/19 ALBUTEROL NEB's [Proventil 0.083% 2.5 mg IH Q3HRT PRN nebu 12/27/18 02/01/19 1 Day Ago Rx NEBS] ~01/31/19 Cefuroxime Axetil [Ceftin] 500 mg PO Q12H #140 ml 01/02/19 02/01/19 1 Day Ago Rx ~01/31/19 Carvedilol [Coreg] 12.5 mg PO BID #60 tablet 01/23/19 02/01/19 1 Day Ago Rx ~01/31/19 Active Medications: Generic Name Dose Route Start Last Admin Trade Name Freq PRN Reason Stop Dose Admin Acetaminophen 650 mg 01/29/19 23:15 Tylenol PO Q4H PRN Pain MILD(1-3)/Fever >100.5/PRICE Albuterol 2.5 mg 01/29/19 23:19 01/31/19 16:25 Proventil IH 2.5 mg Q3HRT PRN Administration Shortness Of Breath Albuterol/Ipratropium 1 ampul 01/30/19 08:00 02/04/19 08:31 Duoneb *Not For Prn Use* IH 1 ampul BIDRT NORA Administration Lipase/Protease/Amylase 1 each 02/01/19 08:45 02/03/19 22:21 Pancrenomi Moore 10,500 Unit FEEDTUBE 1 each PRN PRN Administration For Clogged Feeding Tube Ascorbic Acid 500 mg 01/30/19 10:00 02/04/19 09:40 Vitamin C FEEDTUBE 500 mg BID NORA Administration Atorvastatin Calcium 40 mg 01/30/19 22:00 02/03/19 22:22 Lipitor FEEDTUBE 40 mg QHS NORA Administration Carvedilol 12.5 mg 01/30/19 10:00 02/04/19 09:40 Coreg PO 12.5 mg BID NORA Administration Sodium Chloride 1,000 mls @ 50 mls/hr 01/29/19 23:00 Nacl 0.45% 1000 Ml IV DIRECT NORA Sodium Chloride 100 mls @ 999 mls/hr 01/30/19 14:02 Nacl 0.9% IV SANDEEP PRN Hypotension Levetiracetam 500 mg 01/29/19 23:30 02/03/19 22:43 Keppra FEEDTUBE 500 mg Q12H NORA Administration Multivitamins 5 ml 01/30/19 10:00 02/04/19 09:40 Centrum Liq PO 5 ml DAILY NORA Administration Ondansetron HCl 4 mg 01/29/19 23:15 Zofran IV Q4H PRN Nausea And Vomiting Simple Syrup 15 ml 02/01/19 08:45 02/02/19 21:23 Simple Syrup FEEDTUBE 15 ml PRN PRN Administration Hypoglycemia Simple Syrup 30 ml 02/01/19 08:45 02/03/19 22:21 Simple Syrup FEEDTUBE 30 ml PRN PRN Administration Hypoglycemia Sodium Bicarbonate 325 mg 01/30/19 13:35 02/03/19 22:21 Sodium Bicarbonate FEEDTUBE 325 mg PRN PRN Administration For Clogged Feeding Tube Sodium Bicarbonate 325 mg 02/01/19 08:45 Sodium Bicarbonate FEEDTUBE PRN PRN For Clogged Feeding Tube Sodium Chloride 10 ml 01/30/19 10:00 02/04/19 10:00 Sodium Chloride Flush Syringe 10 Ml IV Not Given BID NORA Sodium Chloride 10 ml 01/29/19 23:15 Sodium Chloride Flush Syringe 10 Ml IV PRN PRN LINE FLUSH Tamsulosin HCl 0.4 mg 01/30/19 10:00 02/04/19 09:40 Flomax PO 0.4 mg QDAY NORA Administration Zinc Sulfate 220 mg 01/30/19 10:00 02/04/19 09:40 Zinc Sulfate PO 220 mg QDAY NORA Administration
[2019-02-04] MEDS: KEPPRA FEEDTUBE SCH ×3 (11:24→22:55)
--- NOTE | 2019-02-04 14:51 | Progress Note ---
Assessment and Plan /MÓNICA on CKD - required HD X 1 on 01/30/19 for persistent hyperkalemia/volume overload -Cr was on admission 3.3 ( up from 2.6 on 01/23/19) with K of 6.8 -Avoid nephrotoxic agents -Gentle hydration with IVF -Renal dose all meds -Nephrology following, no plan for additional HD /Pneumonia -CXR shows opacity in the right midlung zone -treated with Abx /Acute sepsis, resolved - present on admission with leukocytosis and tachycardia. Secondary to possible PNA. - Urine culture with Ashley albicans. Not a urinary pathogen. Stopped cefepime. Candiduria does not need treatment. /GPC bacteremia - possible contaminant with 2/4 bottle positive, s/p vancomycin, now off abx as cultures return a contaminant. /Leukocytosis with sepsis poa -likely secondary to pneumonia -WBC 13.1 -TMAX 100.5 -treated with abx -ID is following /Anemia of CD -Hbg on admission 6.8 -No s/s of active bleeding -s/p 2 units PRBC on 01/30 and 02/02 -Continue to monitor hb /Hyperkalemia -Potassium on admission 6.8 -Received hyperkalemic cocktail in ED, s/p emergent HD x1 -resolved /Hx BPH -Chaudhary catheter -Continue Flomax /Hx Seizure disorder -continue Keppra /Hypertension -Continue to monitor BP -Continue Coreg /Hx of Pressure Ulcers -present on Sacral and BLE -Wound care consulted /DM 2 -POC BG monitoring with SSI coverage /COPD, stable -Albuterol prn /Chronic debility -Contracture of extremities x4 -PT/OT consulted /Severe malnutrition -Albumin 1.7 -Pt has PEG Tube -Dietitian consulted for mgmt of TF Hx Dementia Hx CHF Hx CVA - cont supportive care DVT PPX -SCD's Disposition: back to SNF if remains stable Brief History 68 yo M PMhx multiple chronic sacral and other wounds, recurrent UTI, CVA, BPH, CHF, contractures, DM2, COPD, dementia admitted due to abnormal labs. He was found to be hyperkalemic and having worsening renal function. He was admitted for emergent dialysis, and vascular placed a vascath line emergently with s/p HD x1. Renal function remained stable after that. Afebrile since admission with a white count of 13 that has since returned to normal. He was treated with cefepime and vanc for bacteremia, possible UTI and PNA. 01/29 BCx finalized as contamination, Urine cx grew ashley. ID recommended to stop abx and monitor for now. 01/30 renal US - no acute abnormality Hospitalist Physical Gen: chronically ill looking, mostly nonverbal HEENT: NCAT, EOMI, PERRL, OP Clear Neck: supple, no adenopathy, no thyromegaly, no JVD CVS/Heart: RRR, normal S1S2, pulses present bilaterally Chest/Lungs: CTA B, Symmetrical chest expansion, good air entry bilaterally GI/Abdomen: soft, NTND, good bowel sounds, no guarding or rebound Extermity/Skin: multiple pressure ulcers variable stages, 3-4 MSK: contracted x 4, neck flex to chest, in a chronic position Neuro: CN 2-12 grossly intact, no new focal deficits Psych: calm Subjective Date of service: 02/04/19 Interval history: Patient was seen and examined. Follow-up on current diagnosis of Sepsis. No overnight events reported to me. Imaging, nursing note, chart, labs and old chart reviewed. patient nonverbal. Objective - Constitutional Vitals: Vital Signs - 12hr 02/04/19 02/04/19 02/04/19 03:35 04:26 10:00 Temperature 97.4 F L Pulse Rate 76 Respiratory 20 Rate Blood Pressure 151/62 O2 Sat by Pulse 94 96 Oximetry 02/04/19 02/04/19 02/04/19 10:11 11:14 14:23 Temperature Pulse Rate 81 Respiratory 22 Rate Blood Pressure O2 Sat by Pulse 98 Oximetry - Labs CBC & Chem 7: 02/04/19 09:36 02/05/19 10:15 Labs: Abnormal lab results 02/04/19 02/04/19 02/04/19 Range/Units 05:40 08:49 09:36 RBC (3.65-5.03) M/mm3 Hgb (11.8-15.2) gm/dl Hct (35.5-45.6) % RDW (13.2-15.2) % Lymph % (Auto) (13.4-35.0) % [place] % (Auto) (0.0-7.3) % Eos % (Auto) (0.0-4.3) % Lymph # (1.2-5.4) K/mm3 Eos # (0.0-0.4) K/mm3 Seg Neutrophils % (40.0-70.0) % Sodium 147 H (137-145) mmol/L BUN 91 H (9-20) mg/dL Creatinine 3.4 H (0.8-1.5) mg/dL Glucose 114 H (75-100) mg/dL POC Glucose 110 H 115 H (70-105) Magnesium 2.40 H (1.7-2.3) mg/dL 02/04/19 Range/Units 09:36 RBC 2.48 L (3.65-5.03) M/mm3 Hgb 7.2 L (11.8-15.2) gm/dl Hct 21.7 L (35.5-45.6) % RDW 17.1 H (13.2-15.2) % Lymph % (Auto) 10.8 L (13.4-35.0) % [place] % (Auto) 8.3 H (0.0-7.3) % Eos % (Auto) 5.2 H (0.0-4.3) % Lymph # 0.9 L (1.2-5.4) K/mm3 Eos # 0.5 H (0.0-0.4) K/mm3 Seg Neutrophils % 75.2 H (40.0-70.0) % Sodium (137-145) mmol/L BUN (9-20) mg/dL Creatinine (0.8-1.5) mg/dL Glucose (75-100) mg/dL POC Glucose (70-105) Magnesium (1.7-2.3) mg/dL
[2019-02-04 19:59] LABS: Myeloperoxidase Antibody <1.0 AI (<1.0)
[2019-02-05] MEDS: DUONEB *Not for PRN Use IH SCH (08:43)
[2019-02-05] MEDS: COREG PO SCH (09:45)
[2019-02-05] MEDS: ZINC SULFATE PO SCH (09:45)
[2019-02-05] MEDS: Centrum Liq PO SCH (09:46)
[2019-02-05] MEDS: FLOMAX PO SCH (09:46)
[2019-02-05] MEDS: VITAMIN C FEEDTUBE SCH (09:46)
[2019-02-05] MEDS: SODIUM CHLORIDE FLUSH SYRINGE 10 ML IV SCH (09:47)
[2019-02-05 11:00] LABS: Calcium 8.8 mg/dL (8.4-10.2)
[2019-02-05 11:08] VITALS: BP 146/77
--- NOTE | 2019-02-05 11:28 | Discharge Summary ---
Providers - Providers Date of Admission: 01/29/19 22:10 Date of discharge: 02/05/19 Attending physician: MEENA NOLASCO 01/29/19 21:38 Consult to Physician [CONS] Stat Comment: the patient was seen recently by Dr Sanchez's group Consulting Provider: TOSHIA SANCHEZ Physician Instructions: Reason For Exam: acute on chronic renal failure 01/29/19 23:15 Consult to Physician [CONS] Routine Comment: Consulting Provider: ROMULO IYER Physician Instructions: Reason For Exam: WBC13.1, history of recurrent UTI 01/29/19 23:19 Consult to Wound/ET Nurse [CONS] Routine Reason For Exam: wound eval 01/29/19 23:24 Consult to Dietitian/Nutrition [CONS] Routine Physician Instructions: Reason For Exam: Reason for Consult: Write/Manage Tube Feeding 01/30/19 00:17 Physical Therapy Evaluation and Treat [CONS] Routine Comment: Reason For Exam: debility 01/30/19 00:18 Occupational Therapy Evaluate and Treat [CONS] Routine Comment: Reason For Exam: debility 02/01/19 08:47 Consult to Dietitian/Nutrition [CONS] Routine Physician Instructions: Assess nutrtn needs, initiate, modify, manage TF Reason For Exam: Reason for Consult: Write/Manage Tube Feeding Reason for Consult: Write/Manage Tube Feeding Primary care physician: RAMSEY PORTILLO Hospitalization Condition: Stable Hospital course: 68 yo M PMhx multiple chronic sacral and other wounds, recurrent UTI, CVA, BPH, CHF, contractures, DM2, COPD, dementia admitted due to abnormal labs. He was found to be hyperkalemic and having worsening renal function. He was admitted for emergent dialysis, and vascular placed a vascath line emergently with s/p HD x1. Renal function remained stable after that. Afebrile since admission with a white count of 13 that has since returned to normal. He was treated with cefepime and vanc for bacteremia, possible UTI and PNA. 01/29 BCx finalized as contamination, Urine cx grew jhonatan. ID recommended to stop abx and monitor for now. 01/30 renal US - no acute abnormality Discharge diagnosis and Mx: /MÓNICA on CKD - required HD X 1 on 01/30/19 for persistent hyperkalemia/volume overload -Cr was on admission 3.3 ( up from 2.6 on 01/23/19) with K of 6.8 -Avoid nephrotoxic agents -Gentle hydration with IVF -Renal dose all meds -Nephrology following, no plan for additional HD /Pneumonia -CXR shows opacity in the right midlung zone -treated with Abx /Acute sepsis, resolved - present on admission with leukocytosis and tachycardia. Secondary to possible PNA. - Urine culture with Jhonatan albicans. Not a urinary pathogen. Stopped cefepime. Candiduria does not need treatment. /GPC bacteremia - possible contaminant with 2/4 bottle positive, s/p vancomycin, now off abx as cultures return a contaminant. /Leukocytosis with sepsis poa -likely secondary to pneumonia -WBC 13.1 -TMAX 100.5 -treated with abx -ID is following /Anemia of CD -Hbg on admission 6.8 -No s/s of active bleeding -s/p 2 units PRBC on 01/30 and 02/02 -Continue to monitor hb /Hyperkalemia -Potassium on admission 6.8 -Received hyperkalemic cocktail in ED, s/p emergent HD x1 -resolved /Hx BPH -Chaudhary catheter -Continue Flomax /Hx Seizure disorder -continue Keppra /Hypertension -Continue to monitor BP -Continue Coreg /Hx of Pressure Ulcers -present on Sacral and BLE -Wound care consulted /DM 2 -POC BG monitoring with SSI coverage /COPD, stable -Albuterol prn /Chronic debility -Contracture of extremities x4 -PT/OT consulted /Severe malnutrition -Albumin 1.7 -Pt has PEG Tube -Dietitian consulted for mgmt of TF Hx Dementia Hx CHF Hx CVA - cont supportive care DVT PPX -SCD's Disposition: back to SNF Hospitalist Physical Gen: chronically ill looking, mostly nonverbal HEENT: NCAT, EOMI, PERRL, OP Clear Neck: supple, no adenopathy, no thyromegaly, no JVD CVS/Heart: RRR, normal S1S2, pulses present bilaterally Chest/Lungs: CTA B, Symmetrical chest expansion, good air entry bilaterally GI/Abdomen: soft, NTND, good bowel sounds, no guarding or rebound Extermity/Skin: multiple pressure ulcers variable stages, 3-4 MSK: contracted x 4, neck flex to chest, in a chronic position Neuro: CN 2-12 grossly intact, no new focal deficits Psych: calm Disposition: DC/TX-[address] [facility] Time spent for discharge: 34 minutes Core Measure Documentation - Palliative Care Palliative Care/ Comfort Measures: Not Applicable - Core Measures Any of the following diagnoses?: none Exam - Constitutional Vitals: Temp Pulse Resp BP Pulse Ox 98.6 F 77 18 146/77 96 02/05/19 11:03 02/05/19 11:03 02/05/19 11:03 02/05/19 11:03 02/05/19 11:03 Plan Activity: up only with assistance Weight Bearing Status: Non-Weight Bearing Diet: other (cont on TF) Wound: per wound nurse instructions Follow up with: RAMSEY PORTILLO MD [Primary Care Provider] - 3-5 Days
--- NOTE | 2019-02-05 12:20 | Progress Note ---
Assessment and Plan Impression * Oliguric acute kidney injury secondary to ATN * Hyperkalemia - resolved * Metabolic acidosis * Anemia * Dementia * History of seizure disorder * History of BPH Recommendations * SCr plateaued - no further indication for dialysis * Will remove vascath * Chaudhary catheter remains in place * Strict I/O * Avoid nephrotoxins * Renal prognosis is guarded. Recommend hospice care as patient is not a candidate for personalized living manager dialysis. * Note plans for d/c today Subjective Date of service: 02/05/19 Interval history: No acute events overnight. Objective - Vital Signs Vital signs: Vital Signs - 12hr 02/05/19 02/05/19 02/05/19 03:37 08:01 08:43 Temperature 98.0 F 98.6 F Pulse Rate 72 75 Pulse Rate [ From Monitor] Pulse Rate [ Radial] Pulse Rate [ Throughout] Respiratory 18 18 Rate Respiratory Rate [ Throughout] Blood Pressure 144/64 157/75 O2 Sat by Pulse 93 95 94 Oximetry 02/05/19 02/05/19 02/05/19 09:15 09:45 10:00 Temperature Pulse Rate 75 69 Pulse Rate [ 69 From Monitor] Pulse Rate [ 68 Radial] Pulse Rate [ 74 Throughout] Respiratory 18 Rate Respiratory 20 Rate [ Throughout] Blood Pressure 157/75 O2 Sat by Pulse Oximetry 02/05/19 11:03 Temperature 98.6 F Pulse Rate 77 Pulse Rate [ From Monitor] Pulse Rate [ Radial] Pulse Rate [ Throughout] Respiratory 18 Rate Respiratory Rate [ Throughout] Blood Pressure 146/77 O2 Sat by Pulse 96 Oximetry - General Appearance General appearance: chronically ill EENT: ATNC Respiratory: Present: Clear to Ascultation Cardiology: regular, S1S2 Gastrointestinal: no tenderness, no distended Neurologic: other (more alert this am) Musculoskeletal: other (bilateral LE contractures) Psychiatric: other - Lab 02/04/19 09:36 02/05/19 10:15 Most recent lab results Calcium 8.8 mg/dL (8.4-10.2) 02/05/19 10:15 Magnesium 2.40 mg/dL (1.7-2.3) H 02/04/19 09:36 Medications & Allergies - Medications Allergies/Adverse Reactions: Allergies lisinopril Allergy (Verified 10/01/18 15:17) Unknown tramadol Allergy (Verified 07/29/18 18:39) Unknown Home Medications: Home Medications Medication Instructions Recorded Confirmed Last Taken Type Multivit-Min/Iron Fum/Folic AC 1 each PO DAILY 03/24/18 02/01/19 1 Day Ago History [Eypgc-Hlezwmh-Jjcayxkb Tablet] ~01/31/19 Acetaminophen 650 mg NGTUBE Q6H PRN 07/30/18 02/01/19 1 Day Ago History ~01/31/19 Ipratropium/Albuterol Sulfate 1 ampul IH BID 07/30/18 02/01/19 1 Day Ago History [DUONEB *Not for PRN Use*] ~01/31/19 Tamsulosin [Flomax] 0.4 mg PO QDAY 07/30/18 02/01/19 1 Day Ago History ~01/31/19 Vit C/Ascorbate Calcium,Sodium 500 mg NGTUBE BID 07/30/18 02/01/19 1 Day Ago History [Vitamin C 500 mg/15 ml Liquid] ~01/31/19 Zinc Sulfate 220 mg NGTUBE QDAY 07/30/18 02/01/19 1 Day Ago History ~01/31/19 levETIRAcetam [Keppra INJ] 500 mg PO Q12H 07/30/18 02/01/19 1 Day Ago History ~01/31/19 Phosphorus #1 [K-Phos Neutral] 250 mg PO QID #30 tablet 08/23/18 02/01/19 1 Day Ago Rx ~01/31/19 AtorvaSTATin [Lipitor] 40 mg NGTUBE QHS #30 tablet 10/21/18 02/01/19 1 Day Ago Rx ~01/31/19 Insulin Aspart [NovoLOG 100 0 unit SQ AC 11/01/18 02/01/19 1 Day Ago History UNITS/ML VIAL] ~01/31/19 ALBUTEROL NEB's [Proventil 0.083% 2.5 mg IH Q3HRT PRN nebu 12/27/18 02/01/19 1 Day Ago Rx NEBS] ~01/31/19 Carvedilol [Coreg] 12.5 mg PO BID #60 tablet 01/23/19 02/01/19 1 Day Ago Rx ~01/31/19 Active Medications: Generic Name Dose Route Start Last Admin Trade Name Freq PRN Reason Stop Dose Admin Acetaminophen 650 mg 01/29/19 23:15 Tylenol PO Q4H PRN Pain MILD(1-3)/Fever >100.5/PRICE Albuterol 2.5 mg 01/29/19 23:19 01/31/19 16:25 Proventil IH 2.5 mg Q3HRT PRN Administration Shortness Of Breath Albuterol/Ipratropium 1 ampul 01/30/19 08:00 02/05/19 08:43 Duoneb *Not For Prn Use* IH 1 ampul BIDRT NORA Administration Lipase/Protease/Amylase 1 each 02/01/19 08:45 02/03/19 22:21 Pancreaze 10,500 Unit FEEDTUBE 1 each PRN PRN Administration For Clogged Feeding Tube Ascorbic Acid 500 mg 01/30/19 10:00 02/05/19 09:46 Vitamin C FEEDTUBE 500 mg BID NORA Administration Atorvastatin Calcium 40 mg 01/30/19 22:00 02/04/19 22:18 Lipitor FEEDTUBE 40 mg QHS NORA Administration Carvedilol 12.5 mg 01/30/19 10:00 02/05/19 09:45 Coreg PO 12.5 mg BID NORA Administration Sodium Chloride 1,000 mls @ 50 mls/hr 01/29/19 23:00 Nacl 0.45% 1000 Ml IV DIRECT NORA Sodium Chloride 100 mls @ 999 mls/hr 01/30/19 14:02 Nacl 0.9% IV SANDEEP PRN Hypotension Levetiracetam 500 mg 01/29/19 23:30 02/04/19 22:55 Keppra FEEDTUBE Not Given Q12H NORA Multivitamins 5 ml 01/30/19 10:00 02/05/19 09:46 Centrum Liq PO 5 ml DAILY NORA Administration Ondansetron HCl 4 mg 01/29/19 23:15 Zofran IV Q4H PRN Nausea And Vomiting Simple Syrup 15 ml 02/01/19 08:45 02/02/19 21:23 Simple Syrup FEEDTUBE 15 ml PRN PRN Administration Hypoglycemia Simple Syrup 30 ml 02/01/19 08:45 02/03/19 22:21 Simple Syrup FEEDTUBE 30 ml PRN PRN Administration Hypoglycemia Sodium Bicarbonate 325 mg 01/30/19 13:35 02/03/19 22:21 Sodium Bicarbonate FEEDTUBE 325 mg PRN PRN Administration For Clogged Feeding Tube Sodium Bicarbonate 325 mg 02/01/19 08:45 Sodium Bicarbonate FEEDTUBE PRN PRN For Clogged Feeding Tube Sodium Chloride 10 ml 01/30/19 10:00 02/05/19 09:47 Sodium Chloride Flush Syringe 10 Ml IV 10 ml BID NORA Administration Sodium Chloride 10 ml 01/29/19 23:15 Sodium Chloride Flush Syringe 10 Ml IV PRN PRN LINE FLUSH Tamsulosin HCl 0.4 mg 01/30/19 10:00 02/05/19 09:46 Flomax PO 0.4 mg QDAY NORA Administration Zinc Sulfate 220 mg 01/30/19 10:00 02/05/19 09:45 Zinc Sulfate PO 220 mg QDAY NORA Administration
[2019-02-05] MEDS: KEPPRA FEEDTUBE SCH (12:31)
== END 2019-02-05 13:45 | DRG 871 ==
LOC: ED 16:44 → 4A 22:10
PROVIDERS: ADMIT Internal Medicine; ATTEND Internal Medicine
PROC: 30233N1 Transfusion of Nonautologous Red Blood Cells into Peripheral Vein, Percutaneous Approach (ICD-10-PCS; principal; 2019-01-30)
PROC: 5A1D70Z Performance of Urinary Filtration, Intermittent, Less than 6 Hours Per Day (ICD-10-PCS; 2019-01-30)
PROC: 02HV33Z Insertion of Infusion Device into Superior Vena Cava, Percutaneous Approach (ICD-10-PCS; 2019-01-30)
PROC: B548ZZA Ultrasonography of Superior Vena Cava, Guidance (ICD-10-PCS; 2019-01-30)
PROC: 5A1D70Z Performance of Urinary Filtration, Intermittent, Less than 6 Hours Per Day (ICD-10-PCS; 2019-02-05)
DX: A41.9 Sepsis, unspecified organism (principal); J18.9 Pneumonia, unspecified organism; E43 Unspecified severe protein-calorie malnutrition; N18.6 End stage renal disease; N17.9 Acute kidney failure, unspecified; I13.2 Hypertensive heart and chronic kidney disease with heart failure and with stage 5 chronic kidney disease, or end stage renal disease; I50.9 Heart failure, unspecified; E87.5 Hyperkalemia; E11.8 Type 2 diabetes mellitus with unspecified complications; D64.9 Anemia, unspecified; Z88.5 Allergy status to narcotic agent; Z88.8 Allergy status to other drugs, medicaments and biological substances; Z68.21 Body mass index [BMI] 21.0-21.9, adult; Z79.4 Long term (current) use of insulin; Z86.73 Personal history of transient ischemic attack (TIA), and cerebral infarction without residual deficits; I25.2 Old myocardial infarction; E11.22 Type 2 diabetes mellitus with diabetic chronic kidney disease; Z99.2 Dependence on renal dialysis; F03.90 Unspecified dementia, unspecified severity, without behavioral disturbance, psychotic disturbance, mood disturbance, and anxiety; J44.9 Chronic obstructive pulmonary disease, unspecified; M19.90 Unspecified osteoarthritis, unspecified site; N40.0 Benign prostatic hyperplasia without lower urinary tract symptoms; G40.909 Epilepsy, unspecified, not intractable, without status epilepticus; I25.10 Atherosclerotic heart disease of native coronary artery without angina pectoris
CPT/HCPCS: 36415; 36556; 71045; 76770; 76937; 77001; 80048; 80053; 80074; 80202; 81001; 82140; 82550; 82962; 83735; 83930; 84132; 84153; 84550; 85025; 85027; 86021; 86038; 86160; 86334; 86850; 86900; 86901; 86920; 87040; 87086; 93005; 93010; 94640; 94760; 96365; 96368; 96375; G0378; A9270-GY; C1752; J0692; J1644; J1815; J2250; J2543; J3010; J3370; J7030; J7040; J7050; P9016

== ENCOUNTER 2019-02-20 04:58 | Emergency (ER) | payer MEDICARE ==
[2019-02-20] MEDS ORDERED: SODIUM CHLORIDE IRRI 500 ML 500 ML IR ONE (05:48)
[2019-02-20 05:56] LABS: Bacteria,Urine 1+ /HPF (Negative); Bilirubin,Urine NEG (Negative); Blood,Urine MOD (Negative); Color,Urine Yellow (Yellow); Mucus,Urine FEW /HPF; Urobilinogen,Urine < 2.0 mg/dL (<2.0)
[2019-02-20 06:02] LABS: Basophils # (Auto) 0.1 K/mm3 (0.0-0.1); Basophils % (Auto) 0.4 % (0.0-1.8); Eosinophils # (Auto) 0.2 K/mm3 (0.0-0.4); Hematocrit 22.2 % (35.5-45.6); Hemoglobin 7.2 gm/dl (11.8-15.2); Lymphocytes # (Auto) 1.2 K/mm3 (1.2-5.4); Lymphocytes % (Auto) 7.5 % (13.4-35.0); Mean Corpuscular HGB Conc 32 % (32-34); Mean Corpuscular Volume 87 fl (84-94); Monocytes # (Auto) 1.6 K/mm3 (0.0-0.8); Monocytes % (Auto) 9.6 % (0.0-7.3); Platelet Count 430 K/mm3 (140-440); Red Blood Count 2.56 M/mm3 (3.65-5.03); Red Cell Distribution Width 17.8 % (13.2-15.2)
[2019-02-20 06:04] LABS: Calcium 8.4 mg/dL (8.4-10.2)
[2019-02-20] MEDS ORDERED: ACETAMINOPHEN 500 MG TAB PO ONE (06:38)
[2019-02-20] MEDS ORDERED: ACETAMINOPHEN 500 MG TAB FEEDTUBE ONE (06:43)
[2019-02-20] MEDS ORDERED: cefTRIAXone/NS 1 GM/50 ML 1 GM/50 ML BAG IV ONE (06:44)
--- NOTE | 2019-02-20 06:51 | Emergency Department Report ---
HPI - General Chief Complaint: Hyperglycemia Time Seen by Provider: 02/20/19 06:35 - HPI HPI: Room 8 The pt is a 68 y/o M sent from [place] for a cc of hypertension and hyperglycemia. There is no paperwork from the care home available with pt. The pt is resting comfortably in NAD and does not speak. ED Past Medical Hx - Past Medical History Previous Medical History?: Yes Hx Hypertension: Yes Hx CVA: Yes Hx Heart Attack/AMI: Yes Hx Congestive Heart Failure: Yes Hx Diabetes: Yes Hx Arthritis: Yes Hx Seizures: Yes Hx Kidney Stones: Yes Hx Psychiatric Treatment: Yes (Dementia) Hx COPD: Yes Hx Dementia: Yes Additional medical history: Benign prostatic hypertrophy - Surgical History Past Surgical History?: Yes Additional Surgical History: debridement of sacral wound, gastrostomy - Family History Family history: no significant - Social History Smoking Status: Unknown if ever smoked - Medications Home Medications: Home Medications Medication Instructions Recorded Confirmed Last Taken Type Multivit-Min/Iron Fum/Folic AC 1 each PO DAILY 03/24/18 02/01/19 1 Day Ago History [Ukwqj-Pikemyq-Ignrrzql Tablet] ~01/31/19 Acetaminophen 650 mg NGTUBE Q6H PRN 07/30/18 02/01/19 1 Day Ago History ~01/31/19 Ipratropium/Albuterol Sulfate 1 ampul IH BID 07/30/18 02/01/19 1 Day Ago History [DUONEB *Not for PRN Use*] ~01/31/19 Tamsulosin [Flomax] 0.4 mg PO QDAY 07/30/18 02/01/19 1 Day Ago History ~01/31/19 Vit C/Ascorbate Calcium,Sodium 500 mg NGTUBE BID 07/30/18 02/01/19 1 Day Ago History [Vitamin C 500 mg/15 ml Liquid] ~01/31/19 Zinc Sulfate 220 mg NGTUBE QDAY 07/30/18 02/01/19 1 Day Ago History ~01/31/19 levETIRAcetam [Keppra INJ] 500 mg PO Q12H 07/30/18 02/01/19 1 Day Ago History ~01/31/19 Phosphorus #1 [K-Phos Neutral] 250 mg PO QID #30 tablet 08/23/18 02/01/19 1 Day Ago Rx ~01/31/19 AtorvaSTATin [Lipitor] 40 mg NGTUBE QHS #30 tablet 10/21/18 02/01/19 1 Day Ago Rx ~01/31/19 Insulin Aspart [NovoLOG 100 0 unit SQ AC 11/01/18 02/01/19 1 Day Ago History UNITS/ML VIAL] ~01/31/19 ALBUTEROL NEB's [Proventil 0.083% 2.5 mg IH Q3HRT PRN nebu 12/27/18 02/01/19 1 Day Ago Rx NEBS] ~01/31/19 Carvedilol [Coreg] 12.5 mg PO BID #60 tablet 01/23/19 02/01/19 1 Day Ago Rx ~01/31/19 Amoxicillin/Potassium Clav 1 each PO BID #20 tablet 02/20/19 Unknown Rx [Augmentin 875-125 Tablet] ED Review of Systems ROS: Stated complaint: MEDICAL CLEARANCE Other details as noted in HPI Comment: Unobtainable due to pts medical conditions Physical Exam - Physical Exam Vital Signs: Vital Signs 02/20/19 02/20/19 02/20/19 05:35 05:45 06:00 Temperature Pulse Rate 86 105 H 105 H Respiratory 39 H 15 52 H Rate Blood Pressure 123/69 153/95 O2 Sat by Pulse 97 Oximetry 02/20/19 02/20/19 06:15 06:17 Temperature 102.4 F H Pulse Rate 95 H Respiratory 32 H Rate Blood Pressure 122/61 O2 Sat by Pulse 99 Oximetry Physical Exam: GEN: WD WN male lying on stretcher sleeping, nonverbal. chronic contractures present HEENT: NCAT NECK: no stridor CV: rrr no m/r/g PULM: CTA B Abd: g tube in place. no guarding SKIN: no diaphoresis Neuro: nonverbal MS: Chronic contractures of extremities present ED Course Vital Signs 02/20/19 02/20/19 02/20/19 05:35 05:45 06:00 Temperature Pulse Rate 86 105 H 105 H Respiratory 39 H 15 52 H Rate Blood Pressure 123/69 153/95 O2 Sat by Pulse 97 Oximetry 02/20/19 02/20/19 06:15 06:17 Temperature 102.4 F H Pulse Rate 95 H Respiratory 32 H Rate Blood Pressure 122/61 O2 Sat by Pulse 99 Oximetry ED Medical Decision Making - Lab Data Result diagrams: 02/20/19 Unknown 02/20/19 Unknown Laboratory Tests 02/20/19 02/20/19 02/20/19 06:44 Unknown Unknown WBC 16.4 H RBC 2.56 L Hgb 7.2 L Hct 22.2 L MCV 87 MCH 28 MCHC 32 RDW 17.8 H Plt Count 430 Lymph % (Auto) 7.5 L [place] % (Auto) 9.6 H Eos % (Auto) 1.0 Baso % (Auto) 0.4 Lymph # 1.2 [place] # 1.6 H Eos # 0.2 Baso # 0.1 Seg Neutrophils % 81.5 H Seg Neutrophils # 13.4 H Sodium Potassium Chloride Carbon Dioxide Anion Gap BUN Creatinine Estimated GFR BUN/Creatinine Ratio Glucose Lactic Acid 0.70 Calcium Urine Color Yellow Urine Turbidity Slightly-cloudy Urine pH 7.0 Ur Specific Welch 1.014 Urine Protein 100 mg/dl Urine Glucose (UA) Neg Urine Ketones Neg Urine Blood Mod Urine Nitrite Neg Urine Bilirubin Neg Urine Urobilinogen < 2.0 Ur Leukocyte Esterase Lg Urine WBC (Auto) 60.0 H Urine RBC (Auto) 59.0 Urine Bacteria (Auto) 1+ Urine Mucus Few 02/20/19 Unknown WBC RBC Hgb Hct MCV MCH MCHC RDW Plt Count Lymph % (Auto) [place] % (Auto) Eos % (Auto) Baso % (Auto) Lymph # [place] # Eos # Baso # Seg Neutrophils % Seg Neutrophils # Sodium 140 Potassium 4.1 Chloride 99.4 Carbon Dioxide 24 Anion Gap 21 BUN 69 H Creatinine 2.1 H Estimated GFR 38 BUN/Creatinine Ratio 33 Glucose 97 Lactic Acid Calcium 8.4 Urine Color Urine Turbidity Urine pH Ur Specific Welch Urine Protein Urine Glucose (UA) Urine Ketones Urine Blood Urine Nitrite Urine Bilirubin Urine Urobilinogen Ur Leukocyte Esterase Urine WBC (Auto) Urine RBC (Auto) Urine Bacteria (Auto) Urine Mucus - Radiology Data Radiology results: report reviewed (CXR), image reviewed (CXR) interpreted by me: CXR- no focal infiltrate no ptx [facility] [address] [place] [address] XRay Report Signed Patient: LORI SHARMA MR #: [id number] : 1950 Acct:[id number] Age/Sex: 68 / M ADM Date: 02/20/19 Loc: ED Attending Dr: Ordering Physician: NA LYNNE MD Date of Service: 02/20/19 Procedure(s): XR chest 1V ap Accession Number(s): [id number] cc: NA LYNNE MD Fluoro Time In Minutes: CHEST 1 VIEW 02/20/2019 6:53 AM INDICATION / CLINICAL INFORMATION: fever. COMPARISON: 01/30/19 FINDINGS: Patient is slightly rotated the right with the patient's head obscuring the upper right hemithorax. SUPPORT DEVICES: Left jugular Vas-Cath is normal her present. HEART / MEDIASTINUM: Heart is enlarged but stable. LUNGS / PLEURA: There are subtle parenchymal densities in the right upper lung and left mid lung which could represent infiltrate such as pneumonia. No pneumothorax. ADDITIONAL FINDINGS: No significant additional findings. IMPRESSION: 1. Possible right upper and/or left midlung pneumonia. Signer Name: Santiago Alvarez MD Signed: 02/20/2019 7:21 AM Workstation Name: [id number] Transcribed By: DT Dictated By: Marc Alvarez MD Electronically Authenticated By: Marc Alvarez MD Signed Date/Time: 02/20/19720 DD/ 8 TD/TT: Critical care attestation.: If time is entered above; I have spent that time in minutes in the direct care of this critically ill patient, excluding procedure time. ED Disposition Clinical Impression: UTI (urinary tract infection), Renal insufficiency, Pneumonia Disposition: DC/TX-70 ANOTHER TYPE HLTHCARE Is pt being admited?: No Does the pt Need Aspirin: No Condition: Stable Instructions: Bacterial Pneumonia (ED) Prescriptions: Amoxicillin/Potassium Clav [Augmentin 875-125 Tablet] 1 each PO BID #20 tablet Referrals: RAMSEY PORTILLO MD [Primary Care Provider] - 3-5 Days Time of Disposition: 09:03
--- NOTE | 2019-02-20 07:25 | XRay Report ---
CHEST 1 VIEW 02/20/2019 6:53 AM INDICATION / CLINICAL INFORMATION: fever. COMPARISON: 01/30/19 FINDINGS: Patient is slightly rotated the right with the patient's head obscuring the upper right hem ithorax. SUPPORT DEVICES: Left jugular Vas-Cath is normal her present. HEART / MEDIASTINUM: Heart is enlarged but stable. LUNGS / PLEURA: There are subtle parenchymal densities in the right upper lung and left mid lung whic h could represent infiltrate such as pneumonia. No pneumothorax. ADDITIONAL FINDINGS: No significant additional findings. IMPRESSION: 1. Possible right upper and/or left midlung pneumonia. Signer Name: Santiago Alvarez MD Signed: 02/20/2019 7:21 AM Workstation Name: [id number]
[2019-02-20 11:09] VITALS: BP 110/61
== END 2019-02-20 10:55 | disposition other institution (70) ==
LOC: ED 04:58
DX: N39.0 Urinary tract infection, site not specified (principal); J18.9 Pneumonia, unspecified organism; N28.9 Disorder of kidney and ureter, unspecified; I11.0 Hypertensive heart disease with heart failure; I50.9 Heart failure, unspecified; I25.2 Old myocardial infarction; M19.90 Unspecified osteoarthritis, unspecified site; J44.9 Chronic obstructive pulmonary disease, unspecified; Z86.73 Personal history of transient ischemic attack (TIA), and cerebral infarction without residual deficits; Z98.890 Other specified postprocedural states; Z79.899 Other long term (current) drug therapy; Z88.6 Allergy status to analgesic agent; Z88.8 Allergy status to other drugs, medicaments and biological substances
CPT/HCPCS: 36415; 71045; 80048; 81001; 82140; 85025; 87040; 87086; 96365; 99284; J0696

== ENCOUNTER 2019-03-07 01:33 | Emergency (ER) | payer MEDICARE ==
[2019-03-07] MEDS ORDERED: ADRENALIN ONE (01:45)
[2019-03-07] MEDS ORDERED: CALCIUM CHLORIDE IV ONE (01:45)
--- NOTE | 2019-03-07 01:57 | Emergency Department Report ---
HPI <ANASTASIYA FAIRBANKS - Last Filed: 03/07/19 02:02> - HPI HPI: 68-year-old -[place] male presents to the emergency department via EMS from his [place] [facility] in cardiac arrest. Apparently the initial call was for respiratory distress but the patient was pulseless and in asystole upon EMS arrival. They were doing chest compressions and working on the patient for about 20 minutes prior to arrival in the emergency department. They had placed a Curtis airway but were unable to establish any IV or give medication. The patient is well known to this department. He has a past medical history of CVA, diabetes, coronary artery disease, cardiomyopathy, extensive sacral decubitus ulcers. The patient was last in this emergency department about 2 weeks ago for hyperglycemia and hypertension. <JACKY HEATH - Last Filed: 03/07/19 02:28> - General Time Seen by Provider: 03/07/19 01:50 ED Past Medical Hx <ANASTASIYA FAIRBANKS - Last Filed: 03/07/19 02:02> - Past Medical History Hx Hypertension: Yes Hx CVA: Yes Hx Heart Attack/AMI: Yes Hx Congestive Heart Failure: Yes Hx Diabetes: Yes Hx Deep Vein Thrombosis: No Hx Pulmonary Embolism: No Hx GERD: No Hx Liver Disease: No Hx Renal Disease: No Hx Sickle Cell Disease: No Hx Arthritis: Yes Hx Headaches / Migraines: No Hx Seizures: Yes Hx Kidney Stones: Yes Hx Psychiatric Treatment: Yes (Dementia) Hx Asthma: No Hx COPD: Yes Hx Tuberculosis: No Hx Dementia: Yes Hx HIV: No Additional medical history: Benign prostatic hypertrophy - Surgical History Hx Coronary Stent: No Hx Open Heart Surgery: No Hx Pacemaker: No Hx Internal Defibrillator: No Hx Cholecystectomy: No Hx Appendectomy: No Hx Breast Surgery: No Additional Surgical History: debridement of sacral wound, gastrostomy - Social History Smoking Status: Unknown if ever smoked <JACKY HEATH - Last Filed: 03/07/19 02:28> - Medications Home Medications: Home Medications Medication Instructions Recorded Confirmed Last Taken Type Multivit-Min/Iron Fum/Folic AC 1 each PO DAILY 03/24/18 02/01/19 1 Day Ago History [Ktqzh-Lneghtn-Kqyscjdz Tablet] ~01/31/19 Acetaminophen 650 mg NGTUBE Q6H PRN 07/30/18 02/01/19 1 Day Ago History ~01/31/19 Ipratropium/Albuterol Sulfate 1 ampul IH BID 07/30/18 02/01/19 1 Day Ago History [DUONEB *Not for PRN Use*] ~01/31/19 Tamsulosin [Flomax] 0.4 mg PO QDAY 07/30/18 02/01/19 1 Day Ago History ~01/31/19 Vit C/Ascorbate Calcium,Sodium 500 mg NGTUBE BID 07/30/18 02/01/19 1 Day Ago History [Vitamin C 500 mg/15 ml Liquid] ~01/31/19 Zinc Sulfate 220 mg NGTUBE QDAY 07/30/18 02/01/19 1 Day Ago History ~01/31/19 levETIRAcetam [Keppra INJ] 500 mg PO Q12H 07/30/18 02/01/19 1 Day Ago History ~01/31/19 Phosphorus #1 [K-Phos Neutral] 250 mg PO QID #30 tablet 08/23/18 02/01/19 1 Day Ago Rx ~01/31/19 AtorvaSTATin [Lipitor] 40 mg NGTUBE QHS #30 tablet 10/21/18 02/01/19 1 Day Ago Rx ~01/31/19 Insulin Aspart [NovoLOG 100 0 unit SQ AC 11/01/18 02/01/19 1 Day Ago History UNITS/ML VIAL] ~01/31/19 ALBUTEROL NEB's [Proventil 0.083% 2.5 mg IH Q3HRT PRN nebu 12/27/18 02/01/19 1 Day Ago Rx NEBS] ~01/31/19 Carvedilol [Coreg] 12.5 mg PO BID #60 tablet 01/23/19 02/01/19 1 Day Ago Rx ~01/31/19 Amoxicillin/Potassium Clav 1 each PO BID #20 tablet 02/20/19 Unknown Rx [Augmentin 875-125 Tablet] ED Review of Systems ROS: Stated complaint: CARDIAC ARREST Other details as noted in HPI <ANASTASIYA FAIRBANKS - Last Filed: 03/07/19 02:02> ROS: Stated complaint: CARDIAC ARREST Other details as noted in HPI Comment: Unobtainable due to pts medical conditions <JACKY HEATH - Last Filed: 03/07/19 02:28> Physical Exam - Physical Exam Physical Exam: GENERAL: Patient is ill-appearing and unresponsive. HENT: Normocephalic. Atraumatic. Patient has moist mucous membranes. EYES: Pupils are fixed and dilated. NECK: Supple. Trachea appears midline. CHEST/LUNGS: There are no spontaneous respirations. HEART/CARDIOVASCULAR: There are no spontaneous heart sounds. ABDOMEN: Abdomen is soft. There is no abdominal distention. PEG tube in place. SKIN: Skin is cool but dry. Extensive sacral decubitus ulcers. NEURO: Unresponsive. Does not withdraw to painful stimuli. Does not follow any commands. MUSCULOSKELETAL: Bilateral upper and lower extremity contractures. No palpable femoral or radial pulses. <JACKY HEATH S - Last Filed: 03/07/19 02:28> - IO Left Tibia Consent Obtained: emergent situation Time Out Performed: Yes (emergent ) Anesthetic Used: other anesthetic (emergent no anesthesia ) IO Instrument Used to Penetrate the Cortex: battery powered IO drill Patient Tolerated Procedure: well Complications: none Additional Comments: successful placement x 1 attempt, IO secured with supplied secure device and opsite line flush and return without complication, no bleeding site. <ANASTASIYA FAIRBANKS. - Last Filed: 03/07/19 02:02> - Intubation Time Out Performed: No Sedative: none Laryngoscope: other (Glydescope) Size: 4 ET Tube Size: 7.5 Tube Secured Depth (cm): 24 Tube Secured Location: lips Tube Placement Confirmation: visualized tube passing t, confirmation by capnometr Intubation Complications: none <JACKY HEATH S - Last Filed: 03/07/19 02:28> ED Medical Decision Making - Medical Decision Making This patient arrives in cardiac arrest and asystolic. The Curtis airway was removed and the patient was orotracheally intubated with the Glydescope. An intraosseous line was placed so the patient could receive medications. We immediately started chest compressions upon arrival to the emergency department and bed 23. The patient has a history of hyperkalemia so some calcium was given. He was also given epinephrine and sodium bicarbonate during the first round of ACLS protocol. There were a total of 3 rounds completed with epinephrine given each time. The patient remained pulseless and in asystole. Pupils are fixed and dilated. No spontaneous heart breath sounds. Time of was called at 1:44 AM. - Differential Diagnosis LA, PE, CVA, dysrhythmia <JACKY HEATH - Last Filed: 03/07/19 02:28> Critical care attestation.: If time is entered above; I have spent that time in minutes in the direct care of this critically ill patient, excluding procedure time. <ANASTASIYA FAIRBANKS - Last Filed: 03/07/19 02:02> Critical Care Time: Yes Critical care time in (mins) excluding proc time.: 10 Critical care attestation.: If time is entered above; I have spent that time in minutes in the direct care of this critically ill patient, excluding procedure time. Critical care time was spent on this patient and doing his initial evaluation and supervision of ACLS protocol. Critical Care Time: 10 minutes <JACKY HEATH - Last Filed: 03/07/19 02:28> ED Disposition <ANASTASIYA FAIRBANKS - Last Filed: 03/07/19 02:02> Is pt being admited?: No Time of Disposition: 02:28 <JACKY HEATH - Last Filed: 03/07/19 02:28> Clinical Impression: Cardiopulmonary arrest Disposition: DC-20
[2019-03-07 02:05] VITALS: BP 00/00
== END 2019-03-07 03:30 ==
LOC: ED 01:33
DX: I46.9 Cardiac arrest, cause unspecified (principal); I11.0 Hypertensive heart disease with heart failure; I50.9 Heart failure, unspecified; E11.9 Type 2 diabetes mellitus without complications; M19.90 Unspecified osteoarthritis, unspecified site; F03.90 Unspecified dementia, unspecified severity, without behavioral disturbance, psychotic disturbance, mood disturbance, and anxiety; J44.9 Chronic obstructive pulmonary disease, unspecified; F17.200 Nicotine dependence, unspecified, uncomplicated; Z88.6 Allergy status to analgesic agent
CPT/HCPCS: 31500; 36680; 92950; 99285; J0171